=== PATIENT | male | born 1945 | race African-American/Black ===

== ENCOUNTER 2017-01-27 21:05 | Inpatient (IN) | payer MEDICAID, OTHER ==
[~2017-01-27] VITALS: Ht 177.8 cm; Wt 72.6 kg
[2017-01-27 21:05] VITALS: BP 126/81
[2017-01-27 22:20] LABS: TROPONIN I < 0.30 ng/mL (<=0.30)
[2017-01-27 22:21] LABS: APPEARANCE,URINE VERY CLOUDY; KETONES,URINE NEGATIVE (NEGATIVE); LEUKOCYTE ESTERASE ,URINE 3+ (NEGATIVE); NITRITE,URINE POSITIVE (NEGATIVE); PH,URINE 6 (4.5-8.0); PROTEIN,URINE 2+ (NEGATIVE); UROBILINOGEN,URINE 1 MG/DL (0.0-1.0)
[2017-01-27 22:22] LABS: BACTERIA,URINE MANY /HPF; RBC,URINE TNTC /HPF (0 - 0); WBC,URINE TNTC /HPF (0 - 0)
[2017-01-27 22:24] LABS: ALANINE AMINOTRANSFERASE 16 U/L (3-41); ALBUMIN/GLOBULIN RATIO 1.4 (1.0-2.7); ANION GAP 18 (5-15); ASPARTATE AMINO TRANSFERASE 29 U/L (5-40); CALCIUM 9.3 mg/dL (8.6-10.2); CARBON DIOXIDE 22 mEQ/L (20-30); CHLORIDE 103 mEQ/L (98-107); CREATININE 1.4 mg/dL (0.7-1.2); GLOMERULAR FILTRATION RATE > 60 mL/min (>60); HEMOLYSIS 27; POTASSIUM 3.5 mEQ/L (3.4-4.9); SODIUM 143 mEQ/L (135-145); TOTAL PROTEIN 7.2 g/dL (6.6-8.7)
[2017-01-27 22:27] LABS: BASOPHILS % (AUTO) 1.1 % (0.0-2.0); EOSINOPHILS % (AUTO) 1.2 % (0.0-3.0); LYMPHOCYTES % (AUTO) 15.8 % (20.0-45.0); MEAN CORPUSCULAR HEMOGLOBIN 30.6 PG (27.0-31.0); MEAN CORPUSCULAR HGB CONC 33.5 G/DL (32.0-36.0); MEAN CORPUSCULAR VOLUME 91 FL (80-99); MEAN PLATELET VOLUME 6.6 FL (6.5-10.1); MONOCYTES % (AUTO) 8.7 % (1.0-10.0); NEUTROPHILS % (AUTO) 73.2 % (45.0-75.0); PLATELET COUNT 256 K/UL (150-450); RED BLOOD COUNT 4.62 M/UL (4.70-6.10); RED CELL DISTRIBUTION WIDTH 12.1 % (11.6-14.8); WHITE BLOOD COUNT 6.3 K/UL (4.8-10.8)
[2017-01-27 22:31] LABS: AMMONIA 21 umol/L (16-60)
[2017-01-27] MEDS ORDERED: cefTRIAXone 1 GM in NS 55 ML IVPB ONE (22:45)
[2017-01-27 23:05] VITALS: BP 135/80
[2017-01-28] VITALS (7 sets, daily range): BP systolic 115–142; BP diastolic 74–92
[2017-01-28] MEDS ORDERED: LORazepam Inj 2mg/ml 1ml IV ONE (00:30)
--- NOTE | 2017-01-28 00:31 | Emergency Room Report ---
History of Present Illness General Chief Complaint: General Complaint Source: Medical Record Present Illness HPI This is a 71-year-old [place]er male coming from half-way. At baseline he has a history of dementia and he was sent in because he was agitated was getting nursing staff. This never happened before. Per EMS patient was agitated initially but by time he got here he was calm. Denies any symptoms. No history of fever or chills. No history of nausea vomiting. No other complaint. Allergies: Coded Allergies: No Known Allergies (Unverified , 01/27/17) Patient History Past Medical History: see triage record, old chart reviewed, dementia Past Surgical History: other Pertinent Family History: none Social History: Denies: smoking Immunizations: other Reviewed Nursing Documentation: PMH: Agreed, PSxH: Agreed Nursing Documentation-PMH Hx Cardiac Problems: Yes - HYPERLIPIDEMIA Hx Hypertension: Yes Hx Gastrointestinal Problems: Yes - GERD,BPH History Of Psychiatric Problem: Yes - MAJOR DEPRESSIVE DISORDER,DEMENTIA Hx Cerebrovascular Accident: Yes - TIA Review of Systems All Other Systems: limited - Secondary to dementia and agitation Physical Exam Vital Signs Date Time Temp Pulse Resp B/P Pulse Ox O2 Delivery O2 Flow Rate FiO2 01/27/17 20:51 98.4 109 18 126/81 95 Room Air vitals normal except for tachycardia Sp02 EP Interpretation: reviewed, normal General Appearance: well appearing, no apparent distress, alert Head: normocephalic, atraumatic Eyes: bilateral eye EOMI, bilateral eye PERRL ENT: hearing grossly normal, normal pharynx Neck: full range of motion, supple, no meningismus Respiratory: chest non-tender, lungs clear, normal breath sounds Cardiovascular #1: regular rate, rhythm, no murmur Gastrointestinal: normal bowel sounds, non tender, no mass, no organomegaly, no bruit, non-distended Musculoskeletal: back normal, normal range of motion Neurologic: alert Psychiatric: mood/affect normal Skin: warm/dry Medical Decision Making Diagnostic Impression: Primary Impression: UTI (urinary tract infection) Qualified Codes: N30.00 - Acute cystitis without hematuria Additional Impressions: Encephalopathy acute Proteinuria Qualified Codes: R80.9 - Proteinuria, unspecified ER Course Patient presents with agitation. He was calm here until few hours afterward. Nares agitated and combative. No focal deficit to indicate TIA or CVA. He does have infectious cause in the urine. This may be causing him to be agitated sundowning more. We'll admit to the hospital. No evidence of sepsis or pneumonia. Lab Results Impression labs unremarkable Rhythm Strip Diag. Results Rhythm Strip Time: 00:31 EP Interpretation: yes Rate: 80 Rhythm: NSR, no PVC's, no ectopy Last Vital Signs Date Time Temp Pulse Resp B/P Pulse Ox O2 Delivery O2 Flow Rate FiO2 01/27/17 21:05 98.4 90 20 126/81 98 Room Air Status: improved Disposition: ADMITTED INPATIENT Condition: Serious Referrals: Rosa M LUCAS,REFERRING (PCP) JANE KEARNS M.D. Jan 28, 2017 00:31
[2017-01-28] MEDS ORDERED: ATORVASTATIN CA40 MG ORAL (01:40)
[2017-01-28] MEDS ORDERED: LISINOPRIL10 MG ORAL (01:40)
[2017-01-28] MEDS ORDERED: MULTIVITAMINS1 EAC8 ORAL (01:40)
[2017-01-28] MEDS ORDERED: SENOKOT8.6 MG PO (01:40)
[2017-01-28] MEDS ORDERED: PAMELOR10 MG ORAL (01:40)
[2017-01-28] MEDS ORDERED: FAMOTIDINE20 MG ORAL (01:40)
[2017-01-28] MEDS ORDERED: AMLODIPINE BESY10 MG ORAL (01:40)
[2017-01-28] MEDS ORDERED: DOCUSATE SODIU100 MG ORAL (01:40)
[2017-01-28] MEDS ORDERED: TAMSULOSIN HCL0.4 MG ORAL (01:40)
[2017-01-28] MEDS ORDERED: ATIVAN0.5 MG ORAL (01:40)
[2017-01-28] MEDS ORDERED: ASPIRIN81 MG ORAL (01:40)
[2017-01-28] MEDS ORDERED: Docusate 100mg cap ORAL SCH (01:45)
[2017-01-28] MEDS ORDERED: Heparin 5000 units/ml inj SUBQ SCH (01:45)
[2017-01-28] MEDS: LORazepam 0.5mg tab ORAL PRN ×2 (03:11→23:40)
[2017-01-28 07:11] LABS: BASOPHILS % (AUTO) 0.7 % (0.0-2.0); EOSINOPHILS % (AUTO) 0.3 % (0.0-3.0); LYMPHOCYTES % (AUTO) 8.9 % (20.0-45.0); MEAN CORPUSCULAR HGB CONC 33.7 G/DL (32.0-36.0); MEAN CORPUSCULAR VOLUME 92 FL (80-99); MEAN PLATELET VOLUME 6.5 FL (6.5-10.1); MONOCYTES % (AUTO) 10.1 % (1.0-10.0); PLATELET COUNT 282 K/UL (150-450); RED BLOOD COUNT 4.54 M/UL (4.70-6.10); RED CELL DISTRIBUTION WIDTH 11.8 % (11.6-14.8); WHITE BLOOD COUNT 7.8 K/UL (4.8-10.8)
[2017-01-28 08:00] LABS: ANION GAP 20 (5-15); CALCIUM 9.1 mg/dL (8.6-10.2); CARBON DIOXIDE 21 mEQ/L (20-30); CHLORIDE 102 mEQ/L (98-107); GLOMERULAR FILTRATION RATE > 60 mL/min (>60); HEMOLYSIS 11; POTASSIUM 3.7 mEQ/L (3.4-4.9); SODIUM 143 mEQ/L (135-145)
[2017-01-28] MEDS ORDERED: Haloperidol 5mg/ml Inj IM ONE (08:00)
[2017-01-28] MEDS: Aspirin Baby 81mg ORAL SCH (08:42)
[2017-01-28] MEDS: Nortriptyline 10mg cap ORAL SCH (08:42)
[2017-01-28] MEDS: Docusate 100mg cap ORAL SCH ×2 (08:43→18:00)
[2017-01-28] MEDS: Heparin 5000 units/ml inj SUBQ SCH ×2 (08:44→21:02)
--- NOTE | 2017-01-28 15:38 | History and Physical ---
History of Present Illness General Date patient seen: Jan 28, 2017 Time patient seen: 15:31 Reason for Hospitalization: agitation Present Illness HPI 71-year-old [place] male sent in from retirement due to acute change in mentation and increased agitation compared to baseline. pt does have a history of dementia and he was sent in because he was agitated was getting nursing staff. This has never happened before. Per EMS patient was agitated initially but upon arrival in ED he became calm. Denies any symptoms. No history of fever or chills. No history of nausea vomiting. No other complaint. pt currently asleep as he was just given haldol to control agitation. Allergies: Coded Allergies: No Known Allergies (Unverified , 01/27/17) Medication History Scheduled Amlodipine Besylate* (Amlodipine Besylate*), 10 MG ORAL DAILY, (Reported) Aspirin* (Aspirin*), 81 MG ORAL DAILY, (Reported) Atorvastatin Calcium* (Atorvastatin Calcium*), 40 MG ORAL BEDTIME, (Reported) Docusate Sodium* (Docusate Sodium*), 100 MG ORAL TWICE A DAY, (Reported) Famotidine (Famotidine), 20 MG ORAL DAILY, (Reported) Lisinopril* (Lisinopril*), 10 MG ORAL DAILY, (Reported) Lorazepam* (Ativan*), 0.5 MG ORAL EVERY 6 HOURS, (Reported) Multivitamin With Minerals (Multivitamins With Minerals*), 1 TAB ORAL DAILY, ( Reported) Nortriptyline Hcl* (Pamelor*), 10 MG ORAL DAILY, (Reported) Tamsulosin Hcl (Tamsulosin Hcl*), 0.4 MG ORAL BEDTIME, (Reported) Scheduled PRN Sennosides (Senokot), 8.6 MG PO BID PRN for Constipation, (Reported) Patient History Limited by: medical condition History Provided By: Medical Record Healthcare decision maker Ruthie Blackburn Resuscitation status Full Code Advanced Directive on File Past Medical/Surgical History Past Medical/Surgical History: (1) HTN (hypertension) (2) BPH (benign prostatic hyperplasia) (3) Hyperlipidemia (4) Dementia Family History Family History: Patient reports no known family medical history. Social History Social History: (1) No significant social history Review of Systems ROS Narrative Pt asleep, unable to engage in verbal discussion or dialogue Physical Exam Physical Exam Narrative General: asleep, barely arousable to verbal stim Head: normocephalic, without obvious abnormality, atraumatic Eyes: conjunctivae/corneas clear. PERRL, EOM's intact Throat: lips, mucosa, and tongue normal. MMM Neck: supple, symmetrical, trachea midline, and no JVD Lungs: clear to auscultation bilaterally Heart: regular rate and rhythm, S1, S2 normal, no murmur, click, rub or gallop Abdomen: soft, non-tender, non-distended, bowel sounds normal; no masses or organomegaly Extremities: extremities normal, atraumatic, no cyanosis or edema Pulses: 2+ and symmetric Skin: skin color, texture, turgor normal; no rashes or lesions Neurologic: unable to assess Last 24 Hour Vital Signs Date Time Temp Pulse Resp B/P Pulse Ox O2 Delivery O2 Flow Rate FiO2 01/28/17 12:00 97.1 89 18 121/74 97 Room Air 01/28/17 08:43 118 142/92 01/28/17 08:00 97.1 118 18 142/92 96 Room Air 01/28/17 04:05 97.9 97 20 133/86 99 Room Air 01/28/17 02:25 98.4 96 27 115/87 97 Room Air 01/28/17 02:25 98.3 96 27 115/87 97 Room Air 01/28/17 01:05 98.3 62 22 134/74 100 Room Air 01/27/17 23:05 98.4 88 24 135/80 98 Room Air 01/27/17 21:05 98.4 90 20 126/81 98 Room Air 01/27/17 20:51 98.4 109 18 126/81 95 Room Air Intake and Output 01/27/17 01/28/17 19:00 07:00 # Voids 3 Laboratory Tests Test 01/27/17 21:50 01/28/17 06:20 White Blood Count 6.3 K/UL (4.8-10.8) 7.8 K/UL (4.8-10.8) Red Blood Count 4.62 M/UL (4.70-6.10) L 4.54 M/UL (4.70-6.10) L Hemoglobin 14.1 G/DL (14.2-18.0) L 14.1 G/DL (14.2-18.0) L Hematocrit 42.2 % (42.0-52.0) 41.8 % (42.0-52.0) L Mean Corpuscular Volume 91 FL (80-99) 92 FL (80-99) Mean Corpuscular Hemoglobin 30.6 PG (27.0-31.0) 31.0 PG (27.0-31.0) Mean Corpuscular Hemoglobin Concent 33.5 G/DL (32.0-36.0) 33.7 G/DL (32.0-36.0) Red Cell Distribution Width 12.1 % (11.6-14.8) 11.8 % (11.6-14.8) Platelet Count 256 K/UL (150-450) 282 K/UL (150-450) Mean Platelet Volume 6.6 FL (6.5-10.1) 6.5 FL (6.5-10.1) Neutrophils (%) (Auto) 73.2 % (45.0-75.0) 80.0 % (45.0-75.0) H Lymphocytes (%) (Auto) 15.8 % (20.0-45.0) L 8.9 % (20.0-45.0) L Monocytes (%) (Auto) 8.7 % (1.0-10.0) 10.1 % (1.0-10.0) H Eosinophils (%) (Auto) 1.2 % (0.0-3.0) 0.3 % (0.0-3.0) Basophils (%) (Auto) 1.1 % (0.0-2.0) 0.7 % (0.0-2.0) Urine Color Yellow Urine Appearance Very cloudy Urine pH 6 (4.5-8.0) Urine Specific [place] 1.025 (1.005-1.035) Urine Protein 2+ (NEGATIVE) H Urine Glucose (UA) Negative (NEGATIVE) Urine Ketones Negative (NEGATIVE) Urine Occult Blood 3+ (NEGATIVE) H Urine Nitrite Positive (NEGATIVE) H Urine Bilirubin Negative (NEGATIVE) Urine Urobilinogen 1 MG/DL (0.0-1.0) H Urine Leukocyte Esterase 3+ (NEGATIVE) H Urine RBC Tntc /HPF (0 - 0) H Urine WBC Tntc /HPF (0 - 0) H Urine Squamous Epithelial Cells None /LPF (NONE/OCC) Urine Bacteria Many /HPF (NONE) H Sodium Level 143 mEQ/L (135-145) 143 mEQ/L (135-145) Potassium Level 3.5 mEQ/L (3.4-4.9) 3.7 mEQ/L (3.4-4.9) Chloride Level 103 mEQ/L (98-107) 102 mEQ/L (98-107) Carbon Dioxide Level 22 mEQ/L (20-30) 21 mEQ/L (20-30) Anion Gap 18 (5-15) H 20 (5-15) H Blood Urea Nitrogen 28 mg/dL (7-23) H 21 mg/dL (7-23) Creatinine 1.4 mg/dL (0.7-1.2) H 1.0 mg/dL (0.7-1.2) Estimat Glomerular Filtration Rate > 60 mL/min (>60) > 60 mL/min (>60) Glucose Level 112 mg/dL (74-106) H 107 mg/dL (74-106) H Calcium Level 9.3 mg/dL (8.6-10.2) 9.1 mg/dL (8.6-10.2) Total Bilirubin 0.5 mg/dL (0.0-1.2) Aspartate Amino Transf (AST/SGOT) 29 U/L (5-40) Alanine Aminotransferase (ALT/SGPT) 16 U/L (3-41) Alkaline Phosphatase 172 U/L (40-129) H Ammonia 21 umol/L (16-60) Troponin I < 0.30 ng/mL (<=0.30) Total Protein 7.2 g/dL (6.6-8.7) Albumin 4.2 g/dL (3.5-5.2) Globulin 3.0 g/dL Albumin/Globulin Ratio 1.4 (1.0-2.7) Height (Feet): 5 Height (Inches): 10.00 Weight (Pounds): 160 Medications Current Medications Medications (Trade) Dose Ordered Sig/Iram Route PRN Reason Start Time Stop Time Status Last Admin Dose Admin Acetaminophen (Tylenol) 325 mg Q4H PRN ORAL Mild Pain (Pain Scale 1-3) 01/28/17 01:45 02/27/17 01:44 Acetaminophen (Tylenol) 650 mg Q4H PRN ORAL Moderate Pain (Pain Scale 4-6) 01/28/17 02:00 02/27/17 01:59 Amlodipine Besylate (Norvasc) 10 mg DAILY ORAL 01/28/17 09:00 02/27/17 08:59 01/28/17 08:43 Aspirin (ASA) 81 mg DAILY ORAL 01/28/17 09:00 02/27/17 08:59 01/28/17 08:42 Atorvastatin Calcium (Lipitor) 40 mg BEDTIME ORAL 01/28/17 21:00 02/27/17 20:59 Cefepime HCl/ Dextrose (Maxipime/D5W) 55 ml @ 110 mls/hr EVERY 12 HOURS IVPB 01/28/17 21:00 02/04/17 20:59 UNV Dextrose (Dextrose 50%) STAT PRN IV Hypoglycemia 01/28/17 01:45 02/27/17 01:44 Docusate Sodium (Colace) 100 mg BID ORAL 01/28/17 09:00 02/27/17 08:59 01/28/17 08:43 Heparin Sodium (Porcine) 5000 units 5,000 units EVERY 12 HOURS SUBQ 01/28/17 09:00 02/27/17 08:59 01/28/17 08:44 Lorazepam (Ativan) 0.5 mg Q6H PRN ORAL For Anxiety 01/28/17 01:45 02/04/17 01:44 01/28/17 03:11 Nortriptyline HCl (Pamelor) 10 mg DAILY ORAL 01/28/17 09:00 02/27/17 08:59 01/28/17 08:42 Sennosides (Senokot) 8.6 mg DAILY PRN ORAL Constipation 01/28/17 01:45 02/27/17 01:44 Tamsulosin HCl (Flomax) 0.4 mg BEDTIME ORAL 01/28/17 21:00 02/27/17 20:59 Assessment/Plan Problem List: (1) Toxic metabolic encephalopathy Assessment & Plan: Neurology consult Treat underlying UTI, as this is most likely etiology r/o reversible metabolic etiology ICD Codes: G92 - Toxic encephalopathy SNOMED: 452101425 (2) UTI (urinary tract infection) Assessment & Plan: Start IV cefepime f/u urine cultures ICD Codes: N39.0 - Urinary tract infection, site not specified SNOMED: 96853010 Qualifiers: Qualified Codes: N30.00 - Acute cystitis without hematuria (3) HTN (hypertension) Assessment & Plan: Cont BP meds ICD Codes: I10 - Essential (primary) hypertension SNOMED: 74641343 (4) BPH (benign prostatic hyperplasia) Assessment & Plan: Cont flomax ICD Codes: N40.0 - Benign prostatic hyperplasia without lower urinary tract symptoms SNOMED: 187785515, 407724985 (5) Hyperlipidemia Assessment & Plan: Cont statin ICD Codes: E78.5 - Hyperlipidemia, unspecified SNOMED: 93704970 ROXY DUFFY Jan 28, 2017 15:38
--- NOTE | 2017-01-28 15:47 | Infectious Diseases Prog Note ---
Assessment/Plan Assessment/Plan Full consult dictated: A) 1) complicated uti, ua with tmtc wbc 2) pmh noted 3) allergies - negative P) 1) cefepime 2) check urine culture 3) d/w Dr. Mcdonald 4) thank you Subjective Allergies: Coded Allergies: No Known Allergies (Unverified , 01/27/17) Objective Vital Signs Last 24 Hour Vital Signs Date Time Temp Pulse Resp B/P Pulse Ox O2 Delivery O2 Flow Rate FiO2 01/28/17 12:00 97.1 89 18 121/74 97 Room Air 01/28/17 08:43 118 142/92 01/28/17 08:00 97.1 118 18 142/92 96 Room Air 01/28/17 04:05 97.9 97 20 133/86 99 Room Air 01/28/17 02:25 98.4 96 27 115/87 97 Room Air 01/28/17 02:25 98.3 96 27 115/87 97 Room Air 01/28/17 01:05 98.3 62 22 134/74 100 Room Air 01/27/17 23:05 98.4 88 24 135/80 98 Room Air 01/27/17 21:05 98.4 90 20 126/81 98 Room Air 01/27/17 20:51 98.4 109 18 126/81 95 Room Air Height (Feet): 5 Height (Inches): 10.00 Weight (Pounds): 160 Laboratory Tests Test 01/27/17 21:50 01/28/17 06:20 White Blood Count 6.3 K/UL (4.8-10.8) 7.8 K/UL (4.8-10.8) Red Blood Count 4.62 M/UL (4.70-6.10) L 4.54 M/UL (4.70-6.10) L Hemoglobin 14.1 G/DL (14.2-18.0) L 14.1 G/DL (14.2-18.0) L Hematocrit 42.2 % (42.0-52.0) 41.8 % (42.0-52.0) L Mean Corpuscular Volume 91 FL (80-99) 92 FL (80-99) Mean Corpuscular Hemoglobin 30.6 PG (27.0-31.0) 31.0 PG (27.0-31.0) Mean Corpuscular Hemoglobin Concent 33.5 G/DL (32.0-36.0) 33.7 G/DL (32.0-36.0) Red Cell Distribution Width 12.1 % (11.6-14.8) 11.8 % (11.6-14.8) Platelet Count 256 K/UL (150-450) 282 K/UL (150-450) Mean Platelet Volume 6.6 FL (6.5-10.1) 6.5 FL (6.5-10.1) Neutrophils (%) (Auto) 73.2 % (45.0-75.0) 80.0 % (45.0-75.0) H Lymphocytes (%) (Auto) 15.8 % (20.0-45.0) L 8.9 % (20.0-45.0) L Monocytes (%) (Auto) 8.7 % (1.0-10.0) 10.1 % (1.0-10.0) H Eosinophils (%) (Auto) 1.2 % (0.0-3.0) 0.3 % (0.0-3.0) Basophils (%) (Auto) 1.1 % (0.0-2.0) 0.7 % (0.0-2.0) Urine Color Yellow Urine Appearance Very cloudy Urine pH 6 (4.5-8.0) Urine Specific [place] 1.025 (1.005-1.035) Urine Protein 2+ (NEGATIVE) H Urine Glucose (UA) Negative (NEGATIVE) Urine Ketones Negative (NEGATIVE) Urine Occult Blood 3+ (NEGATIVE) H Urine Nitrite Positive (NEGATIVE) H Urine Bilirubin Negative (NEGATIVE) Urine Urobilinogen 1 MG/DL (0.0-1.0) H Urine Leukocyte Esterase 3+ (NEGATIVE) H Urine RBC Tntc /HPF (0 - 0) H Urine WBC Tntc /HPF (0 - 0) H Urine Squamous Epithelial Cells None /LPF (NONE/OCC) Urine Bacteria Many /HPF (NONE) H Sodium Level 143 mEQ/L (135-145) 143 mEQ/L (135-145) Potassium Level 3.5 mEQ/L (3.4-4.9) 3.7 mEQ/L (3.4-4.9) Chloride Level 103 mEQ/L (98-107) 102 mEQ/L (98-107) Carbon Dioxide Level 22 mEQ/L (20-30) 21 mEQ/L (20-30) Anion Gap 18 (5-15) H 20 (5-15) H Blood Urea Nitrogen 28 mg/dL (7-23) H 21 mg/dL (7-23) Creatinine 1.4 mg/dL (0.7-1.2) H 1.0 mg/dL (0.7-1.2) Estimat Glomerular Filtration Rate > 60 mL/min (>60) > 60 mL/min (>60) Glucose Level 112 mg/dL (74-106) H 107 mg/dL (74-106) H Calcium Level 9.3 mg/dL (8.6-10.2) 9.1 mg/dL (8.6-10.2) Total Bilirubin 0.5 mg/dL (0.0-1.2) Aspartate Amino Transf (AST/SGOT) 29 U/L (5-40) Alanine Aminotransferase (ALT/SGPT) 16 U/L (3-41) Alkaline Phosphatase 172 U/L (40-129) H Ammonia 21 umol/L (16-60) Troponin I < 0.30 ng/mL (<=0.30) Total Protein 7.2 g/dL (6.6-8.7) Albumin 4.2 g/dL (3.5-5.2) Globulin 3.0 g/dL Albumin/Globulin Ratio 1.4 (1.0-2.7) Current Medications Medications (Trade) Dose Ordered Sig/Iram Route PRN Reason Start Time Stop Time Status Last Admin Dose Admin Acetaminophen (Tylenol) 325 mg Q4H PRN ORAL Mild Pain (Pain Scale 1-3) 01/28/17 01:45 02/27/17 01:44 Acetaminophen (Tylenol) 650 mg Q4H PRN ORAL Moderate Pain (Pain Scale 4-6) 01/28/17 02:00 02/27/17 01:59 Amlodipine Besylate (Norvasc) 10 mg DAILY ORAL 01/28/17 09:00 02/27/17 08:59 01/28/17 08:43 Aspirin (ASA) 81 mg DAILY ORAL 01/28/17 09:00 02/27/17 08:59 01/28/17 08:42 Atorvastatin Calcium (Lipitor) 40 mg BEDTIME ORAL 01/28/17 21:00 02/27/17 20:59 Cefepime HCl/ Dextrose (Maxipime/D5W) 55 ml @ 110 mls/hr EVERY 12 HOURS IVPB 01/28/17 21:00 02/04/17 20:59 UNV Dextrose (Dextrose 50%) STAT PRN IV Hypoglycemia 01/28/17 01:45 02/27/17 01:44 Docusate Sodium (Colace) 100 mg BID ORAL 01/28/17 09:00 02/27/17 08:59 01/28/17 08:43 Heparin Sodium (Porcine) 5000 units 5,000 units EVERY 12 HOURS SUBQ 01/28/17 09:00 02/27/17 08:59 01/28/17 08:44 Lorazepam (Ativan) 0.5 mg Q6H PRN ORAL For Anxiety 01/28/17 01:45 02/04/17 01:44 01/28/17 03:11 Nortriptyline HCl (Pamelor) 10 mg DAILY ORAL 01/28/17 09:00 02/27/17 08:59 01/28/17 08:42 Sennosides (Senokot) 8.6 mg DAILY PRN ORAL Constipation 01/28/17 01:45 02/27/17 01:44 Tamsulosin HCl (Flomax) 0.4 mg BEDTIME ORAL 01/28/17 21:00 02/27/17 20:59 TAB SHER Jan 28, 2017 15:47
[2017-01-28] MEDS: Cefepime HCl 1 GM in D5W 55 ML IVPB SCH (17:52)
[2017-01-28] MEDS: Tamsulosin 0.4mg cap ORAL SCH (21:01)
--- NOTE | 2017-01-28 22:09 | Consultation ---
Consult Note Consult Note NEUROLOGY CONSULTATION: Full note dictated #[id number] 71 y/o, RH, [place] M with PH of HTN, DL, BPH and dementia. He was noted to be agitated at his NH yesterday. He was noted to have a UTI. He feels better now and has had no behavioral problems. ON EXAM: Problems with orientation, Recent/Remote memory, VSF, HCF, Language. Globally diminished reflexes. IMPRESSION: Underlying dementia with superimposed encephalopathy. REC: Continue present Rx. W/U for other reasons for AMS Observe. Mercedes Coelho M.D., M.S.P.H. MERCEDES COELHO Jan 28, 2017 22:09
--- NOTE | 2017-01-28 22:46 | Consultation ---
DATE OF CONSULTATION: 01/28/2017 INFECTIOUS DISEASES CONSULTATION CONSULTING PHYSICIAN: Leela Mcdaniels M.D. ATTENDING PHYSICIAN: Michael Mcdonald M.D. REASON FOR CONSULTATION: Urinary tract infection, likely complicated UTI, encephalopathy, possible sepsis. The patient's chief complaint coming in the hospital is urinary tract infection with altered mental status. HISTORY OF PRESENT ILLNESS: This is a 71-year-old male who comes into [facility] with significantly positive urinalysis likely complicated UTI with encephalopathy and altered mental status. The patient has possible sepsis. The patient is now placed on cefepime. The patient's urine culture at this time is pending. Infectious Disease consultation was requested for antibiotic management. MAR was noted. Orders were noted. Notes were reviewed. Case was discussed with the RN. REVIEW OF SYSTEMS: Constitutional: The patient has generalized weakness and fatigue. He is a poor historian with altered mental status. Head and neck: No obvious neck pain. Cardiac: No chest pain. Gastrointestinal: No nausea, vomiting, or diarrhea. Genitourinary: No Manzo. Pulmonary: No congestion or shortness of breath. Skin: No rash or itching. Extremities: No extremity pain. Neurological: No seizures. He had no significant temperature spike. He has been tachycardic and elevated respiratory rate. PAST MEDICAL HISTORY: The patient's past medical history includes the following. The patient has a past medical history of hypertension, BPH, hyperlipidemia, dementia, encephalopathy, toxic encephalopathy, and altered mental status. His hemoglobin is 14.1. ALLERGIES: No known drug allergies. FAMILY HISTORY: Noncontributory. SOCIAL HISTORY: No mention of smoking, alcohol, or drug use. MEDICATIONS: Upon reviewing the MAR, the patient is on the following medications: He is on amlodipine, aspirin, atorvastatin, docusate, famotidine, lisinopril, lorazepam, multivitamins, nortriptyline, tamsulosin, antibiotics, and cefepime. MAR was noted. PHYSICAL EXAMINATION: VITAL SIGNS: Temperature 97.1, pulse rate 89, respiratory rate 18, blood pressure 120/74, and saturation 97%. GENERAL: Lethargic, weak, altered mental status. HEAD AND NECK: No JVD. Normocephalic. Neck is supple. HEART: Regular. No gallop or murmur. ABDOMEN: Soft. Positive bowel sounds. LUNGS: Clear bilaterally. No rhonchi or rales. SKIN: No rash. MUSCULOSKELETAL: No effusions. Legs are without cellulitis. PERIPHERAL VASCULAR: No cyanosis or gangrene. LINES: Line sites is without phlebitis. GENITOURINARY: No Manzo. NEUROLOGIC: Lethargic, poorly historian, altered. LABORATORY DATA: Laboratory data, white count 7.8, hemoglobin 14.1. Creatinine is 1.0, was 1.4. LFTs were noted. The patient's urine culture is pending at this time. Urinalysis too many to count white blood cells, 3+ leukocyte esterase, and many bacteria. ASSESSMENT AND PLAN: 1. The patient has complicated urinary tract infection with encephalopathy, altered mental status, possible early sepsis. The patient has elevated heart rate and respiratory rate, possible systemic inflammatory response syndrome criteria. Continue cefepime at this time. Check urine culture. 2. The patient has altered mental status and encephalopathy. Neurological evaluation will be obtained per the notes. 3. Benign prostatic hypertrophy. 4. Hypertension. 5. Hyperlipidemia. 6. Dementia. 7. Continue treatment per Dr. Mcdonald and consultants. 8. . 9. Notes were reviewed. 10. Case was discussed with the RN. Leela Mcdaniels M.D. DR: ITALIA JOB#: [id number] CC:
[2017-01-29] VITALS: BP 130/70
--- NOTE | 2017-01-29 00:46 | Consultation ---
DATE OF CONSULTATION: 01/28/2017 NEUROLOGY CONSULTATION CONSULTING PHYSICIAN: Krunal Coelho M.D. REFERRING PHYSICIAN: Michael Mcdonald M.D. HISTORY: Mr. Sagar Narvaez is a 71-year-old, right-handed, [place] gentleman who does have a past history of hypertension, dyslipidemia, benign prostatic h ypertrophy, and dementia. He was functioning relatively well at his [facility] until 01/27/2017 when he was noted to be increasingly agitated and not his normal self. He was brought into the [facility] emergency room. He was evaluated in the emergency room and was noted to have a significant urinary tract infection. He has been started on intravenous antibiotics and fluids, and has improved since then. At this point in time, he feels well and has been demonstrating no behavioral problems. This consultation was requested to evaluate the patient for his altered mental state. PAST MEDICAL HISTORY: Significant for hypertension, dyslipidemia, and benign prostatic hypertrophy, and dementia. FAMILY HISTORY: Unavailable. As per the patient, there is no family history of neurological problems. PERSONAL HISTORY: Home: He lives in a mcc. 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 Habits: He denies use of alcohol, tobacco, or illicit drugs. PRESENT MEDICATIONS: Lipitor, Flomax, cefepime, Norvasc, aspirin, Pamelor, Colace, heparin for DVT prophylaxis, Haldol p.r.n., Tylenol, Dextrose, lorazepam p.r.n., Senokot, and Tylenol. PHYSICAL EXAMINATION: GENERAL: He is a well-developed, well-nourished, pleasant black gentleman, lying in bed, in no acute distress. VITAL SIGNS: Pulse 90 per minute, blood pressure 136/78 mmHg, respirations 18 per minute, and temperature 97.2 degrees Fahrenheit. HEAD: Normocephalic and atraumatic. EENT: Examination benign NECK: No neck rigidity was observed. NEUROLOGICAL EXAMINATION: MENTAL STATUS EXAMINATION: He was awake and alert. He was oriented to self only. He had no idea of where he was or what the date, month, or year was. He was able to recall 3/3 words immediately, but could not remember any of them in 1 minute and 3 minutes even on the second trial. He was unable to tell me who the present President was and who prior presidents were. His mathematical skills were impaired. His visuospatial function was also impaired. SPEECH: He had mild dysarthria. LANGUAGE: She had anomia for low and mid frequency words. CRANIAL NERVE EXAMINATION: II: The visual french were intact on confrontation testing. III, IV & : The external ocular movements were full and the pupils 3 mm in diameter, equal, round, regular, and reactive to light. V: He had normal facial sensations and the temporales, masseters, and pterygoids functioned normally. VII: He had normal facial expressions and no facial asymmetry. VIII: He was able to hear well bilaterally and there was no nystagmus. IX: The palate moved symmetrically on phonation. X: He had no hoarseness of voice. XI: The sternocleidomastoids and trapezii functioned normally. XII: The tongue was in the midline without any fasciculations or atrophy. MOTOR SYSTEM: The tone was normal in all 4 extremities. Examination of muscle mass revealed no focal wasting. Examination of power revealed grade 5/5 power in all muscle groups tested. SENSORY EXAMINATION: He had intact sensations to pinprick, light touch, and graphesthesia. COORDINATION: He performed well on [id number]-ry-yyav and cbif-xz-xdve testing. REFLEXES: Trace positive and bilaterally symmetrical at the biceps, triceps, brachioradialis, and the knees and 0 at both ankles. The plantar responses were flexor bilaterally. STANCE & GAIT: Were deferred. DIAGNOSTIC IMPRESSION: 1. Mr. Sagar Narvaez is a 71-year-old, right-handed, [place] gentleman who does have a past history of hypertension, dyslipidemia, benign prostatic hypertrophy, and dementia. He was noted to be significantly agitated at his [facility] yesterday and was thus brought into the emergency room at [facility]. Since he has been here, he has been feeling better and has not demonstrated any behavioral problems. 2. On neurological examination, at this time, he does have problems with orientation, recent and remote memory, visuospatial function, higher cognitive function, and language. He also has globally diminished reflexes. 3. Laboratory data revealed a mild anemia with a hemoglobin of 14.1; and chemistry panel revealing an anion gap of 20 and a minimally elevated blood sugar, elevated alkaline phosphatase, a normal ammonia; and urinalysis, which revealed 3+ leukocyte esterase, too numerous to count red blood cells and white blood cells, and many bacteria. 4. The patient's history and neurological examination associated with his laboratory data are most compatible with an underlying dementia with superimposed toxic encephalopathy related to his urinary tract infection. RECOMMENDATIONS: 1. Agree with management thus far. 2. Would continue to treat the patient's acute infectious process in an aggressive manner. 3. The patient should also be worked up for other treatable causes of cognitive decline with an addition to the laboratory tests already done, a B12 level, folate level, vitamin D level, RPR, glycohemoglobin Westergren sedimentation rate, and TSH. 4. The patient should be mobilized rapidly. Thank you for entrusting me with the care of Mr. Narvaez. I shall follow him with you. Krunal Coelho M.D., M.S.P.H. DR: NANI JOB#: [id number]
[2017-01-29] MEDS: Cefepime HCl 1 GM in D5W 55 ML IVPB SCH ×2 (04:21→16:47)
[2017-01-29 04:22] VITALS: BP 128/72
[2017-01-29] MEDS ORDERED: LORazepam Inj 2mg/ml 1ml IV ONE (06:00)
[2017-01-29 08:00] VITALS: BP 135/85
[2017-01-29 08:27] LABS: THYROID STIMULATING HORMONE 0.753 uIU/mL (0.300-4.500)
[2017-01-29] MEDS: Docusate 100mg cap ORAL SCH ×3 (08:42→17:17)
[2017-01-29] MEDS: Heparin 5000 units/ml inj SUBQ SCH ×3 (08:43→21:21)
[2017-01-29 08:53] LABS: HEMOGLOBIN A1C 5.3 % (< 6.0)
[2017-01-29] MEDS: Aspirin Baby 81mg ORAL SCH (10:58)
[2017-01-29] MEDS: Nortriptyline 10mg cap ORAL SCH (10:58)
[2017-01-29 12:00] VITALS: BP 136/78
[2017-01-29] MEDS ORDERED: NS 275ml ONE (15:38)
[2017-01-29] MEDS ORDERED: Tubing IV Secondary IV ONE (15:38)
[2017-01-29 16:00] VITALS: BP 113/49
--- NOTE | 2017-01-29 19:42 | General Progress Note ---
Assessment/Plan Problem List: (1) Toxic metabolic encephalopathy Assessment & Plan: Neurology consult noted Treat underlying UTI, as this is most likely etiology r/o reversible metabolic etiology ICD Codes: G92 - Toxic encephalopathy SNOMED: 860953495 (2) UTI (urinary tract infection) Assessment & Plan: Cont IV abx per ID f/u urine cultures ICD Codes: N39.0 - Urinary tract infection, site not specified SNOMED: 77088973 Qualifiers: Qualified Codes: N30.00 - Acute cystitis without hematuria (3) HTN (hypertension) Assessment & Plan: Cont BP meds ICD Codes: I10 - Essential (primary) hypertension SNOMED: 97380282 (4) BPH (benign prostatic hyperplasia) Assessment & Plan: Cont flomax ICD Codes: N40.0 - Benign prostatic hyperplasia without lower urinary tract symptoms SNOMED: 463569367, 124883614 (5) Hyperlipidemia Assessment & Plan: Cont statin ICD Codes: E78.5 - Hyperlipidemia, unspecified SNOMED: 59000587 Subjective Date patient seen: Jan 29, 2017 Time patient seen: 19:40 Allergies: Coded Allergies: No Known Allergies (Unverified , 01/27/17) Subjective More alert and verbal today, interactive, denies any symptoms at this time, sitter in room Objective Last 24 Hour Vital Signs Date Time Temp Pulse Resp B/P Pulse Ox O2 Delivery O2 Flow Rate FiO2 01/29/17 16:00 97.3 92 20 113/49 99 Room Air 01/29/17 12:00 98.6 100 20 136/78 95 Room Air 01/29/17 10:58 92 135/85 01/29/17 08:00 97.7 92 20 135/85 99 Room Air 01/29/17 04:22 97.5 94 16 128/72 98 Room Air 01/29/17 00:00 98.1 92 19 130/70 97 Room Air 01/28/17 20:03 97.2 90 18 136/78 100 Room Air Intake and Output 01/28/17 01/29/17 19:00 07:00 Intake Total 580 ml 240 ml Output Total 400 ml Balance 580 ml -160 ml Intake Oral 580 ml 240 ml Output Urine Total 400 ml # Voids 3 2 Laboratory Tests 01/29/17 07:00: Erythrocyte Sedimentation Rate 36H, Hemoglobin A1c 5.3, Vitamin B12 Level 254, Vitamin D 25-Hydroxy [Pending], 25-Hydroxy Vitamin D2 [Pending], 25-Hydroxy Vitamin D3 [Pending], Folate [Pending], Thyroid Stimulating Hormone (TSH) 0.753 , Rapid Plasma Reagin [Pending] Height (Feet): 5 Height (Inches): 10.00 Weight (Pounds): 160 Objective General: alert, cooperative, no distress, appears stated age Head: normocephalic, without obvious abnormality, atraumatic Eyes: conjunctivae/corneas clear. PERRL, EOM's intact Throat: lips, mucosa, and tongue normal. MMM Neck: supple, symmetrical, trachea midline, and no JVD Lungs: clear to auscultation bilaterally Heart: regular rate and rhythm, S1, S2 normal, no murmur, click, rub or gallop Abdomen: soft, non-tender, non-distended, bowel sounds normal; no masses or organomegaly Extremities: extremities normal, atraumatic, no cyanosis or edema Pulses: 2+ and symmetric Skin: skin color, texture, turgor normal; no rashes or lesions Neurologic: grossly normal, no focal deficits ROXY DUFFY Jan 29, 2017 19:42
[2017-01-29 20:00] VITALS: BP 139/86
--- NOTE | 2017-01-29 20:13 | Neurology Progress Note ---
Interim History Interim History Interim History Mr. Narvaez feels well. As per his nurse he became very aggressive and abusive last night. He denies any new neurologic symptoms. He continues to be cognitively impoverished. He was up in the chair earlier but is in bed now. Review of Systems Neuro Review of Systems Benign. Objective Physical Exam Last Vital Signs Date Time Temp Pulse Resp B/P Pulse Ox O2 Delivery O2 Flow Rate FiO2 01/29/17 16:00 97.3 92 20 113/49 99 Room Air Laboratory Tests Test 01/29/17 07:00 Erythrocyte Sedimentation Rate 36 MM/HR (0-20) H Hemoglobin A1c 5.3 % (< 6.0) Vitamin B12 Level 254 pg/mL (211-946) Vitamin D 25-Hydroxy Pending 25-Hydroxy Vitamin D2 Pending 25-Hydroxy Vitamin D3 Pending Folate Pending Thyroid Stimulating Hormone (TSH) 0.753 uIU/mL (0.300-4.500) Rapid Plasma Reagin Pending Neurologic Exam Objective PHYSICAL EXAMINATION: GENERAL: He is a well-developed, well-nourished, pleasant black gentleman, lying in bed, in no acute distress. HEAD: Normocephalic and atraumatic. EENT: Examination benign NECK: No neck rigidity was observed. NEUROLOGICAL EXAMINATION: MENTAL STATUS EXAMINATION: He was awake and alert. He was oriented to self only. He had no idea of where he was or what the date, month, or year was. He was able to recall 3/3 words immediately, but could not remember any of them in 1 minute and 3 minutes. He was able to remember Trump but did not remember who prior presidents were. His mathematical skills were impaired. His visuospatial function was also impaired. SPEECH: He had mild dysarthria. LANGUAGE: She had anomia for low and mid frequency words. CRANIAL NERVE EXAMINATION: II: The visual french were intact on confrontation testing. III, IV & : The external ocular movements were full and the pupils 3 mm in diameter, equal, round, regular, and reactive to light. V: He had normal facial sensations and the temporales, masseters, and pterygoids functioned normally. VII: He had normal facial expressions and no facial asymmetry. VIII: He was able to hear well bilaterally and there was no nystagmus. IX: The palate moved symmetrically on phonation. X: He had no hoarseness of voice. XI: The sternocleidomastoids and trapezii functioned normally. XII: The tongue was in the midline without any fasciculations or atrophy. MOTOR SYSTEM: The tone was normal in all 4 extremities. Examination of muscle mass revealed no focal wasting. Examination of power revealed grade 5/5 power in all muscle groups tested. SENSORY EXAMINATION: He had intact sensations to pinprick, light touch, and graphesthesia. COORDINATION: He performed well on tdyrpy-fg-tewr and gyuh-lc-rhqo testing. REFLEXES: Trace positive and bilaterally symmetrical at the biceps, triceps, brachioradialis, and the knees and 0 at both ankles. The plantar responses were flexor bilaterally. STANCE & GAIT: Were deferred. Impression/Recommendations Diagnostic Impression 1. Mr. Sagar Narvaez is a 71-year-old, right-handed, [place]alese gentleman who does have a past history of hypertension, dyslipidemia, benign prostatic hypertrophy, and dementia. He was noted to be significantly agitated at his long-term on 01/27/17 and was thus brought into the emergency room at [facility]. Following that he felt better had not demonstrated any behavioral problems. 2. Last night he again started to demonstrate behavioral problems. He however is calm and well behaved now. 3. On neurological examination, at this time, he does have problems with orientation, recent and remote memory, visuospatial function, higher cognitive function, and language. He also has globally diminished reflexes. 4. Laboratory data revealed a mild anemia with a hemoglobin of 14.1; and chemistry panel revealing an anion gap of 20 and a minimally elevated blood sugar, elevated alkaline phosphatase, a normal ammonia; and urinalysis, which revealed 3+ leukocyte esterase, too numerous to count red blood cells and white blood cells, and many bacteria. 5. Further laboratory test have revealed that he is Vitamin B 12 deficient. 6. The patient's history and neurological examination associated with his laboratory data are most compatible with an underlying dementia with superimposed toxic encephalopathy related to his urinary tract infection. Recommendations 1. Continues present management. 2. Continue to treat the patient's acute infectious process in an aggressive manner. 3. Vitamin B12 - 1000 mcg SC daily x 3 days and then monthly. 4. Agree with starting Zyprexa 7.5 mg q HS. 5. The patient should be mobilized rapidly. Mercedes Coelho M.D., M.S.P.H. MERCEDES COELHO Jan 29, 2017 20:13
--- NOTE | 2017-01-29 20:46 | Consultation ---
DATE OF CONSULTATION: 01/28/2017 HISTORY OF PRESENT ILLNESS: The patient is a 71-year-old male with a history of multiple medical problems including delirium, hypertension, benign prostatic hyperplasia, hyperlipidemia, dementia, urinary tract infection, toxic metabolic encephalopathic who has been admitted to the hospital with a chief complaint of agitation. The patient is currently on medical floor being treated for his urinary tract infection. Psychiatry was consulted. The patient became combative, agitated, hitting staff, and he has been restrained on one to one. He has received Ativan; however, the medication has been ineffective. PAST PSYCHIATRIC HISTORY: He has a history of dementia, depression. He is being treated with nortriptyline as well as lorazepam. PAST MEDICAL HISTORY: Please see history of present illness. ALLERGIES: No known drug allergies. SUBSTANCE ABUSE HISTORY: No known history of illicit drug use or alcohol. MENTAL STATUS EXAMINATION: The patient was awake however is confused, oriented only to self. He was not engaged during the evaluation. He is easily agitated and becomes aggressive. His mood is irritable. Affect is flat. Congruent with mood. Thought process, there is a paucity of thought content. Positive for delusions. Insight and judgment is impaired. ASSESSMENT: AXIS I: Delirium due to general medical condition which is urinary tract infection, dementia. AXIS II: Deferred. AXIS III: Urinary tract infection. AXIS IV: low AXIS V: 10. PLAN: 1. We will discontinue the nortriptyline, it is an strong anticholinergic affinity which make the confusion worse and the patient would not benefit from such a low-dose of nortriptyline, it will only make him more confused. 2. We will start the patient on Zyprexa 7.5 mg at bedtime which will balance the dopamine and secondary to delirium. 3. Continue one to one. 4. Continue soft restraints. 5. We will continue to monitor his symptoms and readjust the medication accordingly. 6. The patient may not need 5150 at this time. Amarilis Perez M.D. DR: Rudi JOB#: [id number] CC:
[2017-01-29] MEDS: Tamsulosin 0.4mg cap ORAL SCH (21:20)
[2017-01-29] MEDS: Vitamin B12 1000mcg/ml Inj SUBQ SCH (21:25)
[2017-01-30 00:08] VITALS: BP 131/79
[2017-01-30 04:09] VITALS: BP 122/74
[2017-01-30] MEDS: Cefepime HCl 1 GM in D5W 55 ML IVPB SCH (05:58)
[2017-01-30 07:04] LABS: BASOPHILS % (AUTO) 0.6 % (0.0-2.0); EOSINOPHILS % (AUTO) 1.9 % (0.0-3.0); LYMPHOCYTES % (AUTO) 18.5 % (20.0-45.0); MEAN CORPUSCULAR HEMOGLOBIN 31.1 PG (27.0-31.0); MEAN CORPUSCULAR HGB CONC 33.8 G/DL (32.0-36.0); MEAN CORPUSCULAR VOLUME 92 FL (80-99); MEAN PLATELET VOLUME 6.6 FL (6.5-10.1); MONOCYTES % (AUTO) 12.5 % (1.0-10.0); NEUTROPHILS % (AUTO) 66.6 % (45.0-75.0); PLATELET COUNT 283 K/UL (150-450); RED BLOOD COUNT 4.55 M/UL (4.70-6.10); RED CELL DISTRIBUTION WIDTH 11.8 % (11.6-14.8); WHITE BLOOD COUNT 5.2 K/UL (4.8-10.8)
[2017-01-30 07:26] LABS: ANION GAP 17 (5-15); CALCIUM 8.9 mg/dL (8.6-10.2); CARBON DIOXIDE 23 mEQ/L (20-30); CHLORIDE 103 mEQ/L (98-107); GLOMERULAR FILTRATION RATE > 60 mL/min (>60); HEMOLYSIS 4; POTASSIUM 3.3 mEQ/L (3.4-4.9); SODIUM 143 mEQ/L (135-145)
[2017-01-30 08:15] VITALS: BP 115/76
[2017-01-30] MEDS: Docusate 100mg cap ORAL SCH ×2 (09:17→17:24)
[2017-01-30] MEDS: Aspirin Baby 81mg ORAL SCH (09:17)
[2017-01-30] MEDS: Heparin 5000 units/ml inj SUBQ SCH ×2 (09:19→21:11)
[2017-01-30] MEDS: LORazepam 0.5mg tab ORAL PRN ×2 (09:29→22:44)
[2017-01-30] MEDS ORDERED: Haloperidol 5mg/ml Inj IM ONE (11:35)
[2017-01-30] MEDS ORDERED: LORazepam Inj 2mg/ml 1ml IV ONE (11:35)
--- NOTE | 2017-01-30 12:15 | Infectious Diseases Prog Note ---
Assessment/Plan Assessment/Plan ASSESSMENT AND PLAN: 1. enterobacter uti with possible sepsis - clinically better - change to rocephin 2. ams/encephalopathy - improved 3. Benign prostatic hypertrophy. 4. Hypertension. 5. Hyperlipidemia. 6. Dementia. 7. Continue treatment per Dr. Mcdonald and consultants. 8. mar noted, fh-nc, sh-negative 9. Notes were reviewed. 10. Case was discussed with the RN. Subjective Constitutional: Denies: fever HEENT: Denies: congestion Respiratory: Denies: shortness of breath Cardiovascular: Denies: chest pain Gastrointestinal/Abdominal: Denies: diarrhea, nausea, vomiting Genitourinary: Reports: other - no mcintyre, Denies: hematuria Neurologic: Denies: headache Psychiatric: Denies: depression Skin: Denies: rash Hematologic: Denies: bleeding Musculoskeletal: Denies: pain Allergies: Coded Allergies: No Known Allergies (Unverified , 01/27/17) Objective Vital Signs Last 24 Hour Vital Signs Date Time Temp Pulse Resp B/P Pulse Ox O2 Delivery O2 Flow Rate FiO2 01/30/17 09:17 89 115/76 01/30/17 08:15 98.0 89 21 115/76 97 Room Air 01/30/17 04:09 97.6 99 21 122/74 97 Room Air 01/30/17 00:08 97.3 96 20 131/79 98 Room Air 01/29/17 20:00 97.2 104 20 139/86 97 Room Air 01/29/17 16:00 97.3 92 20 113/49 99 Room Air Height (Feet): 5 Height (Inches): 10.00 Weight (Pounds): 160 General Appearance: no acute distress HEENT: normocephalic, atraumatic, anicteric, mucous membranes moist, PERRL, EOMI, pharynx normal, supple, no JVD Respiratory/Chest: lungs clear, normal breath sounds, no respiratory distress, no accessory muscle use Cardiovascular: normal rate, regular rhythm, no gallop/murmur, no JVD Abdomen: normal bowel sounds, soft, non tender, no organomegaly, non distended Genitourinary: other - no mcintyre Extremities: no cyanosis Skin: no rash 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, abnormal gait, oriented x 3 , responsive Lymphatic: no neck adenopathy Musculoskeletal: no effusion Objective Labs Test 01/27/17 21:50 01/28/17 06:20 01/29/17 07:00 01/30/17 04:40 White Blood Count 6.3 K/UL (4.8-10.8) 7.8 K/UL (4.8-10.8) 5.2 K/UL (4.8-10.8) Red Blood Count 4.62 M/UL (4.70-6.10) 4.54 M/UL (4.70-6.10) 4.55 M/UL (4.70-6.10) Hemoglobin 14.1 G/DL (14.2-18.0) 14.1 G/DL (14.2-18.0) 14.1 G/DL (14.2-18.0) Hematocrit 42.2 % (42.0-52.0) 41.8 % (42.0-52.0) 41.8 % (42.0-52.0) Mean Corpuscular Volume 91 FL (80-99) 92 FL (80-99) 92 FL (80-99) Mean Corpuscular Hemoglobin 30.6 PG (27.0-31.0) 31.0 PG (27.0-31.0) 31.1 PG (27.0-31.0) Mean Corpuscular Hemoglobin Concent 33.5 G/DL (32.0-36.0) 33.7 G/DL (32.0-36.0) 33.8 G/DL (32.0-36.0) Red Cell Distribution Width 12.1 % (11.6-14.8) 11.8 % (11.6-14.8) 11.8 % (11.6-14.8) Platelet Count 256 K/UL (150-450) 282 K/UL (150-450) 283 K/UL (150-450) Mean Platelet Volume 6.6 FL (6.5-10.1) 6.5 FL (6.5-10.1) 6.6 FL (6.5-10.1) Neutrophils (%) (Auto) 73.2 % (45.0-75.0) 80.0 % (45.0-75.0) 66.6 % (45.0-75.0) Lymphocytes (%) (Auto) 15.8 % (20.0-45.0) 8.9 % (20.0-45.0) 18.5 % (20.0-45.0) Monocytes (%) (Auto) 8.7 % (1.0-10.0) 10.1 % (1.0-10.0) 12.5 % (1.0-10.0) Eosinophils (%) (Auto) 1.2 % (0.0-3.0) 0.3 % (0.0-3.0) 1.9 % (0.0-3.0) Basophils (%) (Auto) 1.1 % (0.0-2.0) 0.7 % (0.0-2.0) 0.6 % (0.0-2.0) Urine Color Yellow Urine Appearance Very cloudy Urine pH 6 (4.5-8.0) Urine Specific [place] 1.025 (1.005-1.035) Urine Protein 2+ (NEGATIVE) Urine Glucose (UA) Negative (NEGATIVE) Urine Ketones Negative (NEGATIVE) Urine Occult Blood 3+ (NEGATIVE) Urine Nitrite Positive (NEGATIVE) Urine Bilirubin Negative (NEGATIVE) Urine Urobilinogen 1 MG/DL (0.0-1.0) Urine Leukocyte Esterase 3+ (NEGATIVE) Urine RBC Tntc /HPF (0 - 0) Urine WBC Tntc /HPF (0 - 0) Urine Squamous Epithelial Cells None /LPF (NONE/OCC) Urine Bacteria Many /HPF (NONE) Sodium Level 143 mEQ/L (135-145) 143 mEQ/L (135-145) 143 mEQ/L (135-145) Potassium Level 3.5 mEQ/L (3.4-4.9) 3.7 mEQ/L (3.4-4.9) 3.3 mEQ/L (3.4-4.9) Chloride Level 103 mEQ/L (98-107) 102 mEQ/L (98-107) 103 mEQ/L (98-107) Carbon Dioxide Level 22 mEQ/L (20-30) 21 mEQ/L (20-30) 23 mEQ/L (20-30) Anion Gap 18 (5-15) 20 (5-15) 17 (5-15) Blood Urea Nitrogen 28 mg/dL (7-23) 21 mg/dL (7-23) 21 mg/dL (7-23) Creatinine 1.4 mg/dL (0.7-1.2) 1.0 mg/dL (0.7-1.2) 1.0 mg/dL (0.7-1.2) Estimat Glomerular Filtration Rate > 60 mL/min (>60) > 60 mL/min (>60) > 60 mL/min (>60) Glucose Level 112 mg/dL (74-106) 107 mg/dL (74-106) 89 mg/dL (74-106) Calcium Level 9.3 mg/dL (8.6-10.2) 9.1 mg/dL (8.6-10.2) 8.9 mg/dL (8.6-10.2) Total Bilirubin 0.5 mg/dL (0.0-1.2) Aspartate Amino Transf (AST/SGOT) 29 U/L (5-40) Alanine Aminotransferase (ALT/SGPT) 16 U/L (3-41) Alkaline Phosphatase 172 U/L (40-129) Ammonia 21 umol/L (16-60) Troponin I < 0.30 ng/mL (<=0.30) Total Protein 7.2 g/dL (6.6-8.7) Albumin 4.2 g/dL (3.5-5.2) Globulin 3.0 g/dL Albumin/Globulin Ratio 1.4 (1.0-2.7) Erythrocyte Sedimentation Rate 36 MM/HR (0-20) Hemoglobin A1c 5.3 % (< 6.0) Vitamin B12 Level 254 pg/mL (211-946) Folate 15.6 ng/mL (>3.0) Thyroid Stimulating Hormone (TSH) 0.753 uIU/mL (0.300-4.500) Microbiology Date/Time Source Procedure Growth Status 01/28/17 02:10 Nasal Nares MRSA Culture - Final NO METHICILLIN RESISTANT STAPH AUREUS... Complete 01/28/17 17:27 Urine,Clean Catch Urine Culture - Preliminary Gram Negative Bacillus 1 Resulted 01/27/17 21:50 Urine,Clean Catch Urine Culture - Final Enterobacter Cloacae Complex Complete 01/28/17 02:10 Rectum VRE Culture - Final NO VANCOMYCIN RESISTANT ENTEROCOCCUS ... Complete 01/27/17 22:00 Arm Left Blood Culture - Preliminary NO GROWTH AFTER 48 HOURS Resulted 01/27/17 21:50 Arm Left Blood Culture - Preliminary NO GROWTH AFTER 48 HOURS Resulted Laboratory Tests Test 01/30/17 04:40 White Blood Count 5.2 K/UL (4.8-10.8) Red Blood Count 4.55 M/UL (4.70-6.10) L Hemoglobin 14.1 G/DL (14.2-18.0) L Hematocrit 41.8 % (42.0-52.0) L Mean Corpuscular Volume 92 FL (80-99) Mean Corpuscular Hemoglobin 31.1 PG (27.0-31.0) H Mean Corpuscular Hemoglobin Concent 33.8 G/DL (32.0-36.0) Red Cell Distribution Width 11.8 % (11.6-14.8) Platelet Count 283 K/UL (150-450) Mean Platelet Volume 6.6 FL (6.5-10.1) Neutrophils (%) (Auto) 66.6 % (45.0-75.0) Lymphocytes (%) (Auto) 18.5 % (20.0-45.0) L Monocytes (%) (Auto) 12.5 % (1.0-10.0) H Eosinophils (%) (Auto) 1.9 % (0.0-3.0) Basophils (%) (Auto) 0.6 % (0.0-2.0) Sodium Level 143 mEQ/L (135-145) Potassium Level 3.3 mEQ/L (3.4-4.9) L Chloride Level 103 mEQ/L (98-107) Carbon Dioxide Level 23 mEQ/L (20-30) Anion Gap 17 (5-15) H Blood Urea Nitrogen 21 mg/dL (7-23) Creatinine 1.0 mg/dL (0.7-1.2) Estimat Glomerular Filtration Rate > 60 mL/min (>60) Glucose Level 89 mg/dL (74-106) Calcium Level 8.9 mg/dL (8.6-10.2) Current Medications Medications (Trade) Dose Ordered Sig/Iram Route PRN Reason Start Time Stop Time Status Last Admin Dose Admin Acetaminophen (Tylenol) 325 mg Q4H PRN ORAL Mild Pain (Pain Scale 1-3) 01/28/17 01:45 02/27/17 01:44 Acetaminophen (Tylenol) 650 mg Q4H PRN ORAL Moderate Pain (Pain Scale 4-6) 01/28/17 02:00 02/27/17 01:59 Amlodipine Besylate (Norvasc) 10 mg DAILY ORAL 01/28/17 09:00 02/27/17 08:59 01/30/17 09:17 Aspirin (ASA) 81 mg DAILY ORAL 01/28/17 09:00 02/27/17 08:59 01/30/17 09:17 Atorvastatin Calcium (Lipitor) 40 mg BEDTIME ORAL 01/28/17 21:00 02/27/17 20:59 01/29/17 21:13 Cefepime HCl/ Dextrose (Maxipime/D5W) 55 ml @ 110 mls/hr Q12HR@0430,1630 IVPB 01/28/17 16:30 02/04/17 16:29 01/30/17 05:58 Cyanocobalamin (Vitamin B12) 1,000 mcg QHS SUBQ 01/29/17 22:00 01/31/17 21:01 01/29/17 21:25 Dextrose (Dextrose 50%) STAT PRN IV Hypoglycemia 01/28/17 01:45 02/27/17 01:44 Docusate Sodium (Colace) 100 mg BID ORAL 01/28/17 09:00 02/27/17 08:59 01/30/17 09:17 Heparin Sodium (Porcine) 5000 units 5,000 units EVERY 12 HOURS SUBQ 01/28/17 09:00 02/27/17 08:59 01/30/17 09:19 Lorazepam (Ativan) 0.5 mg Q6H PRN ORAL For Anxiety 01/28/17 01:45 02/04/17 01:44 01/30/17 09:29 Olanzapine (ZyPREXA) 7.5 mg BEDTIME ORAL 01/29/17 21:00 02/28/17 20:59 01/29/17 21:20 Sennosides (Senokot) 8.6 mg DAILY PRN ORAL Constipation 01/28/17 01:45 02/27/17 01:44 Tamsulosin HCl (Flomax) 0.4 mg BEDTIME ORAL 01/28/17 21:00 02/27/17 20:59 01/29/17 21:20 TAB SHER Jan 30, 2017 12:15
--- NOTE | 2017-01-30 14:29 | General Progress Note ---
Assessment/Plan Status: stable Assessment/Plan (1) Toxic metabolic encephalopathy Assessment & Plan: Neurology and psych consult noted Treat underlying UTI, as this is most likely etiology r/o reversible metabolic etiology Nortriptyline stopped and seroquel started ICD Codes: G92 - Toxic encephalopathy SNOMED: 178397366 (2) UTI (urinary tract infection) Assessment & Plan: Cont IV abx per ID f/u urine culture--showing Enterobacter cloacae ICD Codes: N39.0 - Urinary tract infection, site not specified SNOMED: 52076907 Qualifiers: Qualified Codes: N30.00 - Acute cystitis without hematuria (3) HTN (hypertension) Assessment & Plan: Cont BP meds ICD Codes: I10 - Essential (primary) hypertension SNOMED: 00506279 (4) BPH (benign prostatic hyperplasia) Assessment & Plan: Cont flomax ICD Codes: N40.0 - Benign prostatic hyperplasia without lower urinary tract symptoms SNOMED: 347253342, 414249185 (5) Hyperlipidemia Assessment & Plan: Cont statin ICD Codes: E78.5 - Hyperlipidemia, unspecified SNOMED: 38295798 (6) Vitamin B12 def on Vit B12 supplementation per neuro DC planning back to SNF pending ID rec's for abx plan Subjective Date patient seen: Jan 30, 2017 Time patient seen: 14:27 ROS Limited/Unobtainable: Yes HEENT: Reports: no symptoms Respiratory: Reports: no symptoms Gastrointestinal/Abdominal: Reports: no symptoms Genitourinary: Reports: no symptoms Neurologic/Psychiatric: Reports: no symptoms Endocrine: Reports: no symptoms Hematologic/Lymphatic: Reports: no symptoms Allergies: Coded Allergies: No Known Allergies (Unverified , 01/27/17) Subjective Pt awake, alert, somewhat restless Knew he was in hospital and which city Did not know year Sitter at bedside Denies pain, SOB, f/c, n/v, d/c Objective Last 24 Hour Vital Signs Date Time Temp Pulse Resp B/P Pulse Ox O2 Delivery O2 Flow Rate FiO2 01/30/17 09:17 89 115/76 01/30/17 08:15 98.0 89 21 115/76 97 Room Air 01/30/17 04:09 97.6 99 21 122/74 97 Room Air 01/30/17 00:08 97.3 96 20 131/79 98 Room Air 01/29/17 20:00 97.2 104 20 139/86 97 Room Air 01/29/17 16:00 97.3 92 20 113/49 99 Room Air Intake and Output 01/29/17 01/30/17 19:00 07:00 Intake Total 360 ml 240 ml Output Total 400 ml Balance 360 ml -160 ml Intake Oral 250 ml 240 ml IV Total 110 ml Output Urine Total 400 ml # Voids 6 4 # Bowel Movements 2 1 Laboratory Tests 01/30/17 04:40: White Blood Count 5.2, Red Blood Count 4.55L, Hemoglobin 14.1L, Hematocrit 41.8L , Mean Corpuscular Volume 92, Mean Corpuscular Hemoglobin 31.1H, Mean Corpuscular Hemoglobin Concent 33.8, Red Cell Distribution Width 11.8, Platelet Count 283, Mean Platelet Volume 6.6, Neutrophils (%) (Auto) 66.6, Lymphocytes (% ) (Auto) 18.5L, Monocytes (%) (Auto) 12.5H, Eosinophils (%) (Auto) 1.9, Basophils (%) (Auto) 0.6, Sodium Level 143, Potassium Level 3.3L, Chloride Level 103, Carbon Dioxide Level 23, Anion Gap 17H, Blood Urea Nitrogen 21, Creatinine 1.0, Estimat Glomerular Filtration Rate > 60, Glucose Level 89, Calcium Level 8.9 Height (Feet): 5 Height (Inches): 10.00 Weight (Pounds): 160 Objective General: alert, cooperative, no distress, appears stated age Head: normocephalic, without obvious abnormality, atraumatic Eyes: conjunctivae/corneas clear. PERRL, EOM's intact Throat: lips, mucosa, and tongue normal. MMM Neck: supple, symmetrical, trachea midline, and no JVD Lungs: clear to auscultation bilaterally Heart: regular rate and rhythm, S1, S2 normal, no murmur, click, rub or gallop Abdomen: soft, non-tender, non-distended, bowel sounds normal; no masses or organomegaly Extremities: extremities normal, atraumatic, no cyanosis or edema Pulses: 2+ and symmetric Skin: skin color, texture, turgor normal; no rashes or lesions Neurologic: grossly normal, no focal deficits Rom Lucio M.D. Jan 30, 2017 14:29
[2017-01-30] MEDS ORDERED: Vitamin B12 1000mcg/ml Inj IM SCH (14:45)
--- NOTE | 2017-01-30 16:06 | Neurology Progress Note ---
Interim History Interim History Interim History Mr. Narvaez feels well. As per his nurse he again became very aggressive and abusive last night. He has pulled out his IV today. He denies any new neurologic symptoms. He continues to be cognitively impoverished. Review of Systems Neuro Review of Systems Benign. Objective Physical Exam Last Vital Signs Date Time Temp Pulse Resp B/P Pulse Ox O2 Delivery O2 Flow Rate FiO2 01/30/17 09:17 89 115/76 01/30/17 08:15 98.0 21 97 Room Air Laboratory Tests Test 01/30/17 04:40 White Blood Count 5.2 K/UL (4.8-10.8) Red Blood Count 4.55 M/UL (4.70-6.10) L Hemoglobin 14.1 G/DL (14.2-18.0) L Hematocrit 41.8 % (42.0-52.0) L Mean Corpuscular Volume 92 FL (80-99) Mean Corpuscular Hemoglobin 31.1 PG (27.0-31.0) H Mean Corpuscular Hemoglobin Concent 33.8 G/DL (32.0-36.0) Red Cell Distribution Width 11.8 % (11.6-14.8) Platelet Count 283 K/UL (150-450) Mean Platelet Volume 6.6 FL (6.5-10.1) Neutrophils (%) (Auto) 66.6 % (45.0-75.0) Lymphocytes (%) (Auto) 18.5 % (20.0-45.0) L Monocytes (%) (Auto) 12.5 % (1.0-10.0) H Eosinophils (%) (Auto) 1.9 % (0.0-3.0) Basophils (%) (Auto) 0.6 % (0.0-2.0) Sodium Level 143 mEQ/L (135-145) Potassium Level 3.3 mEQ/L (3.4-4.9) L Chloride Level 103 mEQ/L (98-107) Carbon Dioxide Level 23 mEQ/L (20-30) Anion Gap 17 (5-15) H Blood Urea Nitrogen 21 mg/dL (7-23) Creatinine 1.0 mg/dL (0.7-1.2) Estimat Glomerular Filtration Rate > 60 mL/min (>60) Glucose Level 89 mg/dL (74-106) Calcium Level 8.9 mg/dL (8.6-10.2) Neurologic Exam Objective PHYSICAL EXAMINATION: GENERAL: He is a well-developed, well-nourished, pleasant black gentleman, lying in bed, in no acute distress. HEAD: Normocephalic and atraumatic. EENT: Examination benign NECK: No neck rigidity was observed. NEUROLOGICAL EXAMINATION: MENTAL STATUS EXAMINATION: He was awake and alert. He was oriented to self only. He had no idea of where he was or what the date, month, or year was. He was able to recall 3/3 words immediately, but could not remember any of them in 1 minute and 3 minutes. He was able to remember Trump but did not remember who prior presidents were. His mathematical skills were impaired. His visuospatial function was also impaired. SPEECH: He had mild dysarthria. LANGUAGE: She had anomia for low and mid frequency words. CRANIAL NERVE EXAMINATION: II: The visual french were intact on confrontation testing. III, IV & : The external ocular movements were full and the pupils 3 mm in diameter, equal, round, regular, and reactive to light. V: He had normal facial sensations and the temporales, masseters, and pterygoids functioned normally. VII: He had normal facial expressions and no facial asymmetry. VIII: He was able to hear well bilaterally and there was no nystagmus. IX: The palate moved symmetrically on phonation. X: He had no hoarseness of voice. XI: The sternocleidomastoids and trapezii functioned normally. XII: The tongue was in the midline without any fasciculations or atrophy. MOTOR SYSTEM: The tone was normal in all 4 extremities. Examination of muscle mass revealed no focal wasting. Examination of power revealed grade 5/5 power in all muscle groups tested. SENSORY EXAMINATION: He had intact sensations to pinprick, light touch, and graphesthesia. COORDINATION: He performed well on movngg-oc-kpyj and yenz-xq-oqxh testing. REFLEXES: Trace positive and bilaterally symmetrical at the biceps, triceps, brachioradialis, and the knees and 0 at both ankles. The plantar responses were flexor bilaterally. STANCE & GAIT: Were deferred. Impression/Recommendations Diagnostic Impression 1. Mr. Sagar Narvaez is a 71-year-old, right-handed, [place] gentleman who does have a past history of hypertension, dyslipidemia, benign prostatic hypertrophy, and dementia. He was noted to be significantly agitated at his m[facility] on 01/27/17 and was thus brought into the emergency room at [facility]. Following that he felt better. 2. For the last 2 nights he has been having behavioral problems. He however is calm and well behaved now. 3. On neurological examination, at this time, he does have problems with orientation, recent and remote memory, visuospatial function, higher cognitive function, and language. He also has globally diminished reflexes. 4. Laboratory data revealed a mild anemia with a hemoglobin of 14.1; and chemistry panel revealing an anion gap of 20 and a minimally elevated blood sugar, elevated alkaline phosphatase, a normal ammonia; and urinalysis, which revealed 3+ leukocyte esterase, too numerous to count red blood cells and white blood cells, and many bacteria. 5. Further laboratory test have revealed that he is Vitamin B 12 deficient. 6. The patient's history and neurological examination associated with his laboratory data are most compatible with an underlying dementia with superimposed toxic encephalopathy related to his urinary tract infection. 7. He is also demonstrating increased agitation and confusion at night which is common in demented patients in a new environment who hav an ongoing acute infectious process. Recommendations 1. Continues present management. 2. Continue to treat the patient's acute infectious process in an aggressive manner. 3. Vitamin B12 - 1000 mcg SC daily x 3 days and then monthly. 4. Treatment of PM agitation as per Dr. Perez. 5. The patient should be mobilized rapidly. Mercedes Coelho M.D., M.S.P.[facility] GOME[facility] Jan 30, 2017 16:06
--- NOTE | 2017-01-30 17:00 | Progress Note ---
DATE: 01/30/2017 SUBJECTIVE: The patient was found naked in bed. He was on one-to-one. Earlier, he became very agitated, combative, and received Haldol IM as well as Ativan IM. The patient was not able to provide any history and was responding to internal stimuli. He has still waxing and waning consciousness. MENTAL STATUS EXAMINATION: The patient is alert and oriented to self. Mood is agitated. Affect is constricted, congruent with mood. Thought process is concrete. Thought content, there is no suicidal or homicidal ideation; however, he is others. Cognition is impaired. ASSESSMENT: Delirium due to general medical condition. PLAN: 1. The patient will be continued on risperidone 2 mg at night. 2. We will continue to follow and readjust the medication. Amarilis Perez M.D. DR: Sean JOB#: [id number] CC:
[2017-01-30] MEDS: cefTRIAXone 1 GM in D5W 50 ML IVPB SCH (17:03)
[2017-01-30 20:00] VITALS: BP 140/91
[2017-01-30] MEDS: Tamsulosin 0.4mg cap ORAL SCH (21:09)
[2017-01-30] MEDS: Vitamin B12 1000mcg/ml Inj SUBQ SCH (21:10)
[2017-01-31] VITALS: BP 135/82
[2017-01-31 04:00] VITALS: BP 144/84
[2017-01-31 08:11] LABS: BASOPHILS % (AUTO) 0.6 % (0.0-2.0); EOSINOPHILS % (AUTO) 1.2 % (0.0-3.0); LYMPHOCYTES % (AUTO) 12.7 % (20.0-45.0); MEAN CORPUSCULAR HEMOGLOBIN 30.5 PG (27.0-31.0); MEAN CORPUSCULAR HGB CONC 33.1 G/DL (32.0-36.0); MEAN CORPUSCULAR VOLUME 92 FL (80-99); MEAN PLATELET VOLUME 6.4 FL (6.5-10.1); MONOCYTES % (AUTO) 10.8 % (1.0-10.0); NEUTROPHILS % (AUTO) 74.7 % (45.0-75.0); PLATELET COUNT 304 K/UL (150-450); RED BLOOD COUNT 5.06 M/UL (4.70-6.10); RED CELL DISTRIBUTION WIDTH 11.9 % (11.6-14.8); WHITE BLOOD COUNT 5.6 K/UL (4.8-10.8)
[2017-01-31 08:15] VITALS: BP 135/84
[2017-01-31 08:37] LABS: ANION GAP 17 (5-15); CALCIUM 9.5 mg/dL (8.6-10.2); CARBON DIOXIDE 24 mEQ/L (20-30); CHLORIDE 102 mEQ/L (98-107); GLOMERULAR FILTRATION RATE > 60 mL/min (>60); HEMOLYSIS 4; POTASSIUM 3.7 mEQ/L (3.4-4.9); SODIUM 143 mEQ/L (135-145)
[2017-01-31] MEDS: Aspirin Baby 81mg ORAL SCH (08:47)
[2017-01-31] MEDS: Docusate 100mg cap ORAL SCH ×2 (08:47→18:00)
[2017-01-31] MEDS: Heparin 5000 units/ml inj SUBQ SCH ×2 (08:53→21:58)
[2017-01-31 11:48] VITALS: BP 137/83
--- NOTE | 2017-01-31 12:11 | Neurology Progress Note ---
Interim History Interim History Interim History Mr. Narvaez feels well. As per his caregiver he has not been aggressive or abusive. His general behavior has improved. He denies any new neurologic symptoms. He continues to be cognitively impoverished. Review of Systems Neuro Review of Systems Benign. Objective Physical Exam Last Vital Signs Date Time Temp Pulse Resp B/P Pulse Ox O2 Delivery O2 Flow Rate FiO2 01/31/17 11:48 98.2 91 18 137/83 99 Room Air Laboratory Tests Test 01/31/17 07:00 White Blood Count 5.6 K/UL (4.8-10.8) Red Blood Count 5.06 M/UL (4.70-6.10) Hemoglobin 15.4 G/DL (14.2-18.0) Hematocrit 46.7 % (42.0-52.0) Mean Corpuscular Volume 92 FL (80-99) Mean Corpuscular Hemoglobin 30.5 PG (27.0-31.0) Mean Corpuscular Hemoglobin Concent 33.1 G/DL (32.0-36.0) Red Cell Distribution Width 11.9 % (11.6-14.8) Platelet Count 304 K/UL (150-450) Mean Platelet Volume 6.4 FL (6.5-10.1) L Neutrophils (%) (Auto) 74.7 % (45.0-75.0) Lymphocytes (%) (Auto) 12.7 % (20.0-45.0) L Monocytes (%) (Auto) 10.8 % (1.0-10.0) H Eosinophils (%) (Auto) 1.2 % (0.0-3.0) Basophils (%) (Auto) 0.6 % (0.0-2.0) Sodium Level 143 mEQ/L (135-145) Potassium Level 3.7 mEQ/L (3.4-4.9) Chloride Level 102 mEQ/L (98-107) Carbon Dioxide Level 24 mEQ/L (20-30) Anion Gap 17 (5-15) H Blood Urea Nitrogen 18 mg/dL (7-23) Creatinine 1.0 mg/dL (0.7-1.2) Estimat Glomerular Filtration Rate > 60 mL/min (>60) Glucose Level 98 mg/dL (74-106) Calcium Level 9.5 mg/dL (8.6-10.2) Magnesium Level 2.0 mg/dL (1.7-2.5) Neurologic Exam Objective PHYSICAL EXAMINATION: GENERAL: He is a well-developed, well-nourished, pleasant black gentleman, lying in bed, in no acute distress. HEAD: Normocephalic and atraumatic. EENT: Examination benign NECK: No neck rigidity was observed. NEUROLOGICAL EXAMINATION: MENTAL STATUS EXAMINATION: He was awake and alert. He was oriented to self only. He had no idea of where he was or what the date, month, or year was. He was able to recall 3/3 words immediately, but could not remember any of them in 1 minute and 3 minutes. He was able to remember Trump but did not remember who prior presidents were. His mathematical skills were impaired. His visuospatial function was also impaired. SPEECH: He had mild dysarthria. LANGUAGE: She had anomia for low and mid frequency words. CRANIAL NERVE EXAMINATION: II: The visual french were intact on confrontation testing. III, IV & : The external ocular movements were full and the pupils 3 mm in diameter, equal, round, regular, and reactive to light. V: He had normal facial sensations and the temporales, masseters, and pterygoids functioned normally. VII: He had normal facial expressions and no facial asymmetry. VIII: He was able to hear well bilaterally and there was no nystagmus. IX: The palate moved symmetrically on phonation. X: He had no hoarseness of voice. XI: The sternocleidomastoids and trapezii functioned normally. XII: The tongue was in the midline without any fasciculations or atrophy. MOTOR SYSTEM: The tone was normal in all 4 extremities. Examination of muscle mass revealed no focal wasting. Examination of power revealed grade 5/5 power in all muscle groups tested. SENSORY EXAMINATION: He had intact sensations to pinprick, light touch, and graphesthesia. COORDINATION: He performed well on dqetye-kn-ymgq and udlk-ad-wyel testing. REFLEXES: Trace positive and bilaterally symmetrical at the biceps, triceps, brachioradialis, and the knees and 0 at both ankles. The plantar responses were flexor bilaterally. STANCE & GAIT: Were deferred. Impression/Recommendations Diagnostic Impression 1. Mr. Sagar Narvaez is a 71-year-old, right-handed, [place] gentleman who does have a past history of hypertension, dyslipidemia, benign prostatic hypertrophy, and dementia. He was noted to be significantly agitated at his mcc on 01/27/17 and was thus brought into the emergency room at [facility]. Following that he felt better. 2. Following his admission he had been having behavioral problems. He however is calm and well behaved now. 3. On neurological examination, at this time, he does have problems with orientation, recent and remote memory, visuospatial function, higher cognitive function, and language. He also has globally diminished reflexes. 4. Laboratory data revealed a mild anemia with a hemoglobin of 14.1; and chemistry panel revealing an anion gap of 20 and a minimally elevated blood sugar, elevated alkaline phosphatase, a normal ammonia; and urinalysis, which revealed 3+ leukocyte esterase, too numerous to count red blood cells and white blood cells, and many bacteria. 5. Further laboratory test have revealed that he is Vitamin B 12 deficient. 6. The patient's history and neurological examination associated with his laboratory data are most compatible with an underlying dementia with superimposed toxic encephalopathy related to his urinary tract infection. 7. He is also demonstrating increased agitation and confusion at night which is common in demented patients in a new environment who have an ongoing acute infectious process. Recommendations 1. Continues present management. 2. Continue to treat the patient's acute infectious process in an aggressive manner. 3. Vitamin B12 - 1000 mcg SC daily x 3 days and then monthly. 4. Treatment of PM agitation as per Dr. Perez. 5. The patient should be mobilized rapidly. Mercedes Garcia M.D., M.S.P.[facility] Jan 31, 2017 12:11
[2017-01-31] MEDS ORDERED: OLANZAPINE5 MG ORAL (13:48)
[2017-01-31] MEDS ORDERED: CYANOCOBAL1000 MCG/M SUBQ (13:48)
[2017-01-31] MEDS ORDERED: ATIVAN0.5 MG ORAL (13:48)
[2017-01-31] MEDS ORDERED: CIPRO500 MG PO (13:48)
[2017-01-31 16:10] VITALS: BP 120/74
[2017-01-31] MEDS: cefTRIAXone 1 GM in D5W 50 ML IVPB SCH (17:00)
[2017-01-31 20:00] VITALS: BP 144/82
[2017-01-31] MEDS: Tamsulosin 0.4mg cap ORAL SCH (21:56)
[2017-01-31] MEDS: Vitamin B12 1000mcg/ml Inj SUBQ SCH (21:56)
[2017-02-01] VITALS: BP 148/92
[2017-02-01 04:00] VITALS: BP 137/85
--- NOTE | 2017-02-01 04:59 | General Progress Note ---
Assessment/Plan Status: stable Assessment/Plan (1) Toxic metabolic encephalopathy Assessment & Plan: Neurology and psych consult noted Treat underlying UTI, as this is most likely etiology r/o reversible metabolic etiology Nortriptyline stopped and seroquel started ICD Codes: G92 - Toxic encephalopathy SNOMED: 645246161 (2) UTI (urinary tract infection) Assessment & Plan: Cont IV abx per ID--can transition to cipro PO on d/c f/u urine culture--showing Enterobacter cloacae ICD Codes: N39.0 - Urinary tract infection, site not specified SNOMED: 20005736 Qualifiers: Qualified Codes: N30.00 - Acute cystitis without hematuria (3) HTN (hypertension) Assessment & Plan: Cont BP meds ICD Codes: I10 - Essential (primary) hypertension SNOMED: 20566566 (4) BPH (benign prostatic hyperplasia) Assessment & Plan: Cont flomax ICD Codes: N40.0 - Benign prostatic hyperplasia without lower urinary tract symptoms SNOMED: 164928891, 780992247 (5) Hyperlipidemia Assessment & Plan: Cont statin ICD Codes: E78.5 - Hyperlipidemia, unspecified SNOMED: 21123890 (6) Vitamin B12 def on Vit B12 supplementation per neuro (7) RPR positive D/w ID. Pt w/ low titer. Check FTA-Ab DC planning back to SNF Subjective Date patient seen: Jan 31, 2017 Time patient seen: 12:00 ROS Limited/Unobtainable: Yes Constitutional: Reports: no symptoms HEENT: Reports: no symptoms Cardiovascular: Reports: no symptoms Respiratory: Reports: no symptoms Gastrointestinal/Abdominal: Reports: no symptoms Genitourinary: Reports: no symptoms Neurologic/Psychiatric: Reports: no symptoms Endocrine: Reports: no symptoms Hematologic/Lymphatic: Reports: no symptoms Allergies: Coded Allergies: No Known Allergies (Unverified , 01/27/17) Subjective Pt awake, alert, less confused Knew he was in hospital and which city Did not know year Sitter and family at bedside Denies pain, SOB, f/c, n/v, d/c Noted to be coughing when drinking water Objective Last 24 Hour Vital Signs Date Time Temp Pulse Resp B/P Pulse Ox O2 Delivery O2 Flow Rate FiO2 02/01/17 00:00 96.6 92 18 148/92 96 Room Air 01/31/17 20:00 97.3 97 18 144/82 99 Room Air 01/31/17 16:10 97.9 93 18 120/74 97 Room Air 01/31/17 11:48 98.2 91 18 137/83 99 Room Air 01/31/17 08:48 92 135/84 01/31/17 08:15 98.7 92 20 135/84 98 Room Air Intake and Output 01/31/17 02/01/17 19:00 07:00 Intake Total 720 ml Balance 720 ml Intake Oral 720 ml # Voids 2 # Bowel Movements 1 Laboratory Tests 01/31/17 07:00: White Blood Count 5.6, Red Blood Count 5.06, Hemoglobin 15.4, Hematocrit 46.7, Mean Corpuscular Volume 92, Mean Corpuscular Hemoglobin 30.5, Mean Corpuscular Hemoglobin Concent 33.1, Red Cell Distribution Width 11.9, Platelet Count 304, Mean Platelet Volume 6.4L, Neutrophils (%) (Auto) 74.7, Lymphocytes (%) (Auto) 12.7L, Monocytes (%) (Auto) 10.8H, Eosinophils (%) (Auto) 1.2, Basophils (%) ( Auto) 0.6, Sodium Level 143, Potassium Level 3.7, Chloride Level 102, Carbon Dioxide Level 24, Anion Gap 17H, Blood Urea Nitrogen 18, Creatinine 1.0, Estimat Glomerular Filtration Rate > 60, Glucose Level 98, Calcium Level 9.5, Magnesium Level 2.0, Treponema pallidum Ab (FTA-ABS) [Pending] Height (Feet): 5 Height (Inches): 10.00 Weight (Pounds): 160 Objective General: alert, cooperative, no distress, appears stated age Head: normocephalic, without obvious abnormality, atraumatic Eyes: conjunctivae/corneas clear. PERRL, EOM's intact Throat: lips, mucosa, and tongue normal. MMM Neck: supple, symmetrical, trachea midline, and no JVD Lungs: clear to auscultation bilaterally Heart: regular rate and rhythm, S1, S2 normal, no murmur, click, rub or gallop Abdomen: soft, non-tender, non-distended, bowel sounds normal; no masses or organomegaly Extremities: extremities normal, atraumatic, no cyanosis or edema Pulses: 2+ and symmetric Skin: skin color, texture, turgor normal; no rashes or lesions Neurologic: grossly normal, no focal deficits Rom Lucio M.D. Feb 01, 2017 04:59
[2017-02-01 08:12] VITALS: BP 145/88
[2017-02-01] MEDS: LORazepam 0.5mg tab ORAL PRN (09:57)
[2017-02-01] MEDS: Aspirin Baby 81mg ORAL SCH (09:57)
[2017-02-01] MEDS: Docusate 100mg cap ORAL SCH ×2 (09:58→18:49)
[2017-02-01] MEDS: Heparin 5000 units/ml inj SUBQ SCH ×2 (09:59→21:01)
[2017-02-01 10:21] LABS: VITAMIN D 25-OH TOTAL 26 ng/mL (.)
--- NOTE | 2017-02-01 11:42 | Infectious Diseases Prog Note ---
Assessment/Plan Assessment/Plan ASSESSMENT AND PLAN: 1. enterobacter uti with possible sepsis - clinically better - rocephin - can discharge on po levofloxacin for 5 days 2. ams/encephalopathy - improved 3. Benign prostatic hypertrophy. 4. Hypertension. 5. Hyperlipidemia. 6. Dementia. 7. Continue treatment per Dr. Mcdonald and consultants. 8. mar noted, fh-nc, sh-negative 9. Notes were reviewed. 10. Case was discussed with the RN. Subjective Constitutional: Denies: fever HEENT: Denies: congestion Respiratory: Denies: shortness of breath Cardiovascular: Denies: chest pain Gastrointestinal/Abdominal: Denies: nausea Genitourinary: Reports: other - no mcintyre, Denies: dysuria Neurologic: Denies: numbness Psychiatric: Denies: depression Skin: Denies: rash Hematologic: Denies: bleeding Musculoskeletal: Denies: pain Allergies: Coded Allergies: No Known Allergies (Unverified , 01/27/17) Objective Vital Signs Last 24 Hour Vital Signs Date Time Temp Pulse Resp B/P Pulse Ox O2 Delivery O2 Flow Rate FiO2 02/01/17 09:58 88 145/88 02/01/17 08:12 98.1 88 21 145/88 100 Room Air 02/01/17 04:00 96.4 87 18 137/85 98 Room Air 02/01/17 00:00 96.6 92 18 148/92 96 Room Air 01/31/17 20:00 97.3 97 18 144/82 99 Room Air 01/31/17 16:10 97.9 93 18 120/74 97 Room Air 01/31/17 11:48 98.2 91 18 137/83 99 Room Air Height (Feet): 5 Height (Inches): 10.00 Weight (Pounds): 160 General Appearance: no acute distress HEENT: normocephalic, atraumatic, anicteric, mucous membranes moist, PERRL, EOMI, pharynx normal, supple, no JVD Respiratory/Chest: lungs clear, normal breath sounds, no respiratory distress, no accessory muscle use Cardiovascular: normal rate, regular rhythm, no gallop/murmur, no JVD Abdomen: normal bowel sounds, soft, non tender, no organomegaly, non distended Genitourinary: other - no mcintyre Extremities: no cyanosis Skin: no rash Neurologic/Psychiatric: mushroom packer II-XII grossly normal, alert, responsive Lymphatic: no neck adenopathy Musculoskeletal: no effusion Objective Labs Test 01/27/17 21:50 01/28/17 06:20 01/29/17 07:00 01/30/17 04:40 White Blood Count 6.3 K/UL (4.8-10.8) 7.8 K/UL (4.8-10.8) 5.2 K/UL (4.8-10.8) Red Blood Count 4.62 M/UL (4.70-6.10) 4.54 M/UL (4.70-6.10) 4.55 M/UL (4.70-6.10) Hemoglobin 14.1 G/DL (14.2-18.0) 14.1 G/DL (14.2-18.0) 14.1 G/DL (14.2-18.0) Hematocrit 42.2 % (42.0-52.0) 41.8 % (42.0-52.0) 41.8 % (42.0-52.0) Mean Corpuscular Volume 91 FL (80-99) 92 FL (80-99) 92 FL (80-99) Mean Corpuscular Hemoglobin 30.6 PG (27.0-31.0) 31.0 PG (27.0-31.0) 31.1 PG (27.0-31.0) Mean Corpuscular Hemoglobin Concent 33.5 G/DL (32.0-36.0) 33.7 G/DL (32.0-36.0) 33.8 G/DL (32.0-36.0) Red Cell Distribution Width 12.1 % (11.6-14.8) 11.8 % (11.6-14.8) 11.8 % (11.6-14.8) Platelet Count 256 K/UL (150-450) 282 K/UL (150-450) 283 K/UL (150-450) Mean Platelet Volume 6.6 FL (6.5-10.1) 6.5 FL (6.5-10.1) 6.6 FL (6.5-10.1) Neutrophils (%) (Auto) 73.2 % (45.0-75.0) 80.0 % (45.0-75.0) 66.6 % (45.0-75.0) Lymphocytes (%) (Auto) 15.8 % (20.0-45.0) 8.9 % (20.0-45.0) 18.5 % (20.0-45.0) Monocytes (%) (Auto) 8.7 % (1.0-10.0) 10.1 % (1.0-10.0) 12.5 % (1.0-10.0) Eosinophils (%) (Auto) 1.2 % (0.0-3.0) 0.3 % (0.0-3.0) 1.9 % (0.0-3.0) Basophils (%) (Auto) 1.1 % (0.0-2.0) 0.7 % (0.0-2.0) 0.6 % (0.0-2.0) Urine Color Yellow Urine Appearance Very cloudy Urine pH 6 (4.5-8.0) Urine Specific [place] 1.025 (1.005-1.035) Urine Protein 2+ (NEGATIVE) Urine Glucose (UA) Negative (NEGATIVE) Urine Ketones Negative (NEGATIVE) Urine Occult Blood 3+ (NEGATIVE) Urine Nitrite Positive (NEGATIVE) Urine Bilirubin Negative (NEGATIVE) Urine Urobilinogen 1 MG/DL (0.0-1.0) Urine Leukocyte Esterase 3+ (NEGATIVE) Urine RBC Tntc /HPF (0 - 0) Urine WBC Tntc /HPF (0 - 0) Urine Squamous Epithelial Cells None /LPF (NONE/OCC) Urine Bacteria Many /HPF (NONE) Sodium Level 143 mEQ/L (135-145) 143 mEQ/L (135-145) 143 mEQ/L (135-145) Potassium Level 3.5 mEQ/L (3.4-4.9) 3.7 mEQ/L (3.4-4.9) 3.3 mEQ/L (3.4-4.9) Chloride Level 103 mEQ/L (98-107) 102 mEQ/L (98-107) 103 mEQ/L (98-107) Carbon Dioxide Level 22 mEQ/L (20-30) 21 mEQ/L (20-30) 23 mEQ/L (20-30) Anion Gap 18 (5-15) 20 (5-15) 17 (5-15) Blood Urea Nitrogen 28 mg/dL (7-23) 21 mg/dL (7-23) 21 mg/dL (7-23) Creatinine 1.4 mg/dL (0.7-1.2) 1.0 mg/dL (0.7-1.2) 1.0 mg/dL (0.7-1.2) Estimat Glomerular Filtration Rate > 60 mL/min (>60) > 60 mL/min (>60) > 60 mL/min (>60) Glucose Level 112 mg/dL (74-106) 107 mg/dL (74-106) 89 mg/dL (74-106) Calcium Level 9.3 mg/dL (8.6-10.2) 9.1 mg/dL (8.6-10.2) 8.9 mg/dL (8.6-10.2) Total Bilirubin 0.5 mg/dL (0.0-1.2) Aspartate Amino Transf (AST/SGOT) 29 U/L (5-40) Alanine Aminotransferase (ALT/SGPT) 16 U/L (3-41) Alkaline Phosphatase 172 U/L (40-129) Ammonia 21 umol/L (16-60) Troponin I < 0.30 ng/mL (<=0.30) Total Protein 7.2 g/dL (6.6-8.7) Albumin 4.2 g/dL (3.5-5.2) Globulin 3.0 g/dL Albumin/Globulin Ratio 1.4 (1.0-2.7) Erythrocyte Sedimentation Rate 36 MM/HR (0-20) Hemoglobin A1c 5.3 % (< 6.0) Vitamin B12 Level 254 pg/mL (211-946) Folate 15.6 ng/mL (>3.0) Thyroid Stimulating Hormone (TSH) 0.753 uIU/mL (0.300-4.500) Microbiology Date/Time Source Procedure Growth Status 01/28/17 02:10 Nasal Nares MRSA Culture - Final NO METHICILLIN RESISTANT STAPH AUREUS... Complete 01/28/17 17:27 Urine,Clean Catch Urine Culture - Final Enterobacter Cloacae Complex Mixed Gram Positive Organism Complete 01/28/17 02:10 Rectum VRE Culture - Final NO VANCOMYCIN RESISTANT ENTEROCOCCUS ... Complete Labs Test 01/30/17 04:40 01/31/17 07:00 White Blood Count 5.2 K/UL (4.8-10.8) 5.6 K/UL (4.8-10.8) Red Blood Count 4.55 M/UL (4.70-6.10) 5.06 M/UL (4.70-6.10) Hemoglobin 14.1 G/DL (14.2-18.0) 15.4 G/DL (14.2-18.0) Hematocrit 41.8 % (42.0-52.0) 46.7 % (42.0-52.0) Mean Corpuscular Volume 92 FL (80-99) 92 FL (80-99) Mean Corpuscular Hemoglobin 31.1 PG (27.0-31.0) 30.5 PG (27.0-31.0) Mean Corpuscular Hemoglobin Concent 33.8 G/DL (32.0-36.0) 33.1 G/DL (32.0-36.0) Red Cell Distribution Width 11.8 % (11.6-14.8) 11.9 % (11.6-14.8) Platelet Count 283 K/UL (150-450) 304 K/UL (150-450) Mean Platelet Volume 6.6 FL (6.5-10.1) 6.4 FL (6.5-10.1) Neutrophils (%) (Auto) 66.6 % (45.0-75.0) 74.7 % (45.0-75.0) Lymphocytes (%) (Auto) 18.5 % (20.0-45.0) 12.7 % (20.0-45.0) Monocytes (%) (Auto) 12.5 % (1.0-10.0) 10.8 % (1.0-10.0) Eosinophils (%) (Auto) 1.9 % (0.0-3.0) 1.2 % (0.0-3.0) Basophils (%) (Auto) 0.6 % (0.0-2.0) 0.6 % (0.0-2.0) Sodium Level 143 mEQ/L (135-145) 143 mEQ/L (135-145) Potassium Level 3.3 mEQ/L (3.4-4.9) 3.7 mEQ/L (3.4-4.9) Chloride Level 103 mEQ/L (98-107) 102 mEQ/L (98-107) Carbon Dioxide Level 23 mEQ/L (20-30) 24 mEQ/L (20-30) Anion Gap 17 (5-15) 17 (5-15) Blood Urea Nitrogen 21 mg/dL (7-23) 18 mg/dL (7-23) Creatinine 1.0 mg/dL (0.7-1.2) 1.0 mg/dL (0.7-1.2) Estimat Glomerular Filtration Rate > 60 mL/min (>60) > 60 mL/min (>60) Glucose Level 89 mg/dL (74-106) 98 mg/dL (74-106) Calcium Level 8.9 mg/dL (8.6-10.2) 9.5 mg/dL (8.6-10.2) Magnesium Level 2.0 mg/dL (1.7-2.5) Current Medications Medications (Trade) Dose Ordered Sig/Iram Route PRN Reason Start Time Stop Time Status Last Admin Dose Admin Acetaminophen (Tylenol) 325 mg Q4H PRN ORAL Mild Pain (Pain Scale 1-3) 01/28/17 01:45 02/27/17 01:44 Acetaminophen (Tylenol) 650 mg Q4H PRN ORAL Moderate Pain (Pain Scale 4-6) 01/28/17 02:00 02/27/17 01:59 Amlodipine Besylate (Norvasc) 10 mg DAILY ORAL 01/28/17 09:00 02/27/17 08:59 02/01/17 09:58 Aspirin (ASA) 81 mg DAILY ORAL 01/28/17 09:00 02/27/17 08:59 02/01/17 09:57 Atorvastatin Calcium (Lipitor) 40 mg BEDTIME ORAL 01/28/17 21:00 02/27/17 20:59 01/31/17 21:56 Ceftriaxone Sodium/Dextrose (Rocephin/D5W) 50 ml @ 100 mls/hr Q24H IVPB 01/30/17 17:00 02/06/17 16:59 01/30/17 17:03 Dextrose (Dextrose 50%) STAT PRN IV Hypoglycemia 01/28/17 01:45 02/27/17 01:44 Docusate Sodium (Colace) 100 mg BID ORAL 01/28/17 09:00 02/27/17 08:59 02/01/17 09:58 Heparin Sodium (Porcine) (Heparin 5000 units/ml) 5,000 units EVERY 12 HOURS SUBQ 01/28/17 09:00 02/27/17 08:59 02/01/17 09:59 Lorazepam (Ativan) 0.5 mg Q6H PRN ORAL For Anxiety 01/28/17 01:45 02/04/17 01:44 02/01/17 09:57 Olanzapine 7.5 mg 7.5 mg BEDTIME ORAL 01/29/17 21:00 02/28/17 20:59 01/31/17 21:56 Sennosides (Senokot) 8.6 mg DAILY PRN ORAL Constipation 01/28/17 01:45 02/27/17 01:44 02/01/17 09:57 Tamsulosin HCl (Flomax) 0.4 mg BEDTIME ORAL 01/28/17 21:00 02/27/17 20:59 01/31/17 21:56 TAB SHER Feb 01, 2017 11:42
[2017-02-01 11:48] VITALS: BP 142/89
[2017-02-01 16:00] VITALS: BP 106/67
--- NOTE | 2017-02-01 16:01 | Neurology Progress Note ---
Interim History Interim History Interim History Mr. Narvaez feels well. As per his caregiver he has not been aggressive or abusive. His general behavior has improved. He denies any new neurologic symptoms. He continues to be cognitively impoverished. Review of Systems Neuro Review of Systems Benign. Objective Physical Exam Last Vital Signs Date Time Temp Pulse Resp B/P Pulse Ox O2 Delivery O2 Flow Rate FiO2 02/01/17 11:48 97.2 98 20 142/89 97 Room Air Neurologic Exam Objective PHYSICAL EXAMINATION: GENERAL: He is a well-developed, well-nourished, pleasant black gentleman, lying in bed, in no acute distress. HEAD: Normocephalic and atraumatic. EENT: Examination benign NECK: No neck rigidity was observed. NEUROLOGICAL EXAMINATION: MENTAL STATUS EXAMINATION: He was awake and alert. He was oriented to self only. He had no idea of where he was or what the date, month, or year was. He was able to recall 3/3 words immediately, but could not remember any of them in 1 minute and 3 minutes. He was able to remember Trump but did not remember who prior presidents were. His mathematical skills were impaired. His visuospatial function was also impaired. SPEECH: He had mild dysarthria. LANGUAGE: She had anomia for low and mid frequency words. CRANIAL NERVE EXAMINATION: II: The visual french were intact on confrontation testing. III, IV & : The external ocular movements were full and the pupils 3 mm in diameter, equal, round, regular, and reactive to light. V: He had normal facial sensations and the temporales, masseters, and pterygoids functioned normally. VII: He had normal facial expressions and no facial asymmetry. VIII: He was able to hear well bilaterally and there was no nystagmus. IX: The palate moved symmetrically on phonation. X: He had no hoarseness of voice. XI: The sternocleidomastoids and trapezii functioned normally. XII: The tongue was in the midline without any fasciculations or atrophy. MOTOR SYSTEM: The tone was normal in all 4 extremities. Examination of muscle mass revealed no focal wasting. Examination of power revealed grade 5/5 power in all muscle groups tested. SENSORY EXAMINATION: He had intact sensations to pinprick, light touch, and graphesthesia. COORDINATION: He performed well on [id number] and [id number]-[id number] testing. REFLEXES: Trace positive and bilaterally symmetrical at the biceps, triceps, brachioradialis, and the knees and 0 at both ankles. The plantar responses were flexor bilaterally. STANCE & GAIT: Were deferred. Impression/Recommendations Diagnostic Impression 1. Mr. Sagar Narvaez is a 71-year-old, right-handed, [place] gentleman who does have a past history of hypertension, dyslipidemia, benign prostatic hypertrophy, and dementia. He was noted to be significantly agitated at his [facility] on 01/27/17 and was thus brought into the emergency room at [facility]. Following that he felt better. 2. Following his admission he had been having behavioral problems. He however is calm and well behaved now. 3. On neurological examination, at this time, he does have problems with orientation, recent and remote memory, visuospatial function, higher cognitive function, and language. He also has globally diminished reflexes. 4. Laboratory data revealed a mild anemia with a hemoglobin of 14.1; and chemistry panel revealing an anion gap of 20 and a minimally elevated blood sugar, elevated alkaline phosphatase, a normal ammonia; and urinalysis, which revealed 3+ leukocyte esterase, too numerous to count red blood cells and white blood cells, and many bacteria. 5. Further laboratory test have revealed that he is Vitamin B 12 deficient. His RPR is positive with a 1:2 titer. 6. The patient's history and neurological examination associated with his laboratory data are most compatible with an underlying dementia with superimposed toxic encephalopathy related to his urinary tract infection. 7. He is also demonstrating increased agitation and confusion at night which is common in demented patients in a new environment who have an ongoing acute infectious process. 8. He is RPR positive in a low titer. It is unclear as to what type of syphilis he has or if it is a false positive test. Recommendations 1. Continues present management. 2. Continue to treat the patient's acute infectious process in an aggressive manner. 3. Vitamin B12 - 1000 mcg SC daily monthly. 4. Agree with obtaining FTA-ABS. 5. The patient should be mobilized rapidly. Mercedes Coelho M.D., [facility] Feb 01, 2017 16:00
[2017-02-01] MEDS: cefTRIAXone 1 GM in D5W 50 ML IVPB SCH (17:14)
[2017-02-01 20:00] VITALS: BP 135/85
[2017-02-01] MEDS: Tamsulosin 0.4mg cap ORAL SCH (21:00)
[2017-02-02] VITALS: BP 129/83
[2017-02-02 04:00] VITALS: BP 126/80
[2017-02-02 07:56] VITALS: BP 134/80
[2017-02-02] MEDS: Aspirin Baby 81mg ORAL SCH (09:05)
[2017-02-02] MEDS: Docusate 100mg cap ORAL SCH ×2 (09:06→17:07)
[2017-02-02] MEDS: Heparin 5000 units/ml inj SUBQ SCH ×2 (09:08→21:50)
--- NOTE | 2017-02-02 09:38 | General Progress Note ---
Assessment/Plan Status: stable Assessment/Plan (1) Toxic metabolic encephalopathy Assessment & Plan: Neurology and psych consult noted Treat underlying UTI, as this is most likely etiology r/o reversible metabolic etiology Nortriptyline stopped and seroquel started ICD Codes: G92 - Toxic encephalopathy SNOMED: 675283029 (2) UTI (urinary tract infection) Assessment & Plan: Cont IV abx per ID--can transition to cipro PO on d/c f/u urine culture--showing Enterobacter cloacae ICD Codes: N39.0 - Urinary tract infection, site not specified SNOMED: 61802794 Qualifiers: Qualified Codes: N30.00 - Acute cystitis without hematuria (3) HTN (hypertension) Assessment & Plan: Cont BP meds ICD Codes: I10 - Essential (primary) hypertension SNOMED: 69199283 (4) BPH (benign prostatic hyperplasia) Assessment & Plan: Cont flomax ICD Codes: N40.0 - Benign prostatic hyperplasia without lower urinary tract symptoms SNOMED: 018018084, 103855198 (5) Hyperlipidemia Assessment & Plan: Cont statin ICD Codes: E78.5 - Hyperlipidemia, unspecified SNOMED: 99519116 (6) Vitamin B12 def on Vit B12 supplementation per neuro (7) RPR positive D/w ID. Pt w/ low titer. Check FTA-Ab-->if positive, will get LP DC planning back to SNF, awaiting bed confirmation Subjective Date patient seen: Feb 01, 2017 Time patient seen: 12:00 ROS Limited/Unobtainable: Yes Allergies: Coded Allergies: No Known Allergies (Unverified , 01/27/17) Subjective Pt awake, alert, less confused Knew he was in hospital and which city Did not know year Sitter and family at bedside Denies pain, SOB, f/c, n/v, d/c Noted to be coughing when drinking water Objective Last 24 Hour Vital Signs Date Time Temp Pulse Resp B/P Pulse Ox O2 Delivery O2 Flow Rate FiO2 02/02/17 09:06 96 134/80 02/02/17 07:56 97.7 96 19 134/80 99 Room Air 02/02/17 04:00 97.7 101 19 126/80 100 Room Air 02/02/17 00:00 96.6 94 19 129/83 98 Room Air 02/01/17 20:00 97.9 87 20 135/85 99 Room Air 02/01/17 16:00 99.1 88 21 106/67 98 Room Air 02/01/17 11:48 97.2 98 20 142/89 97 Room Air 02/01/17 09:58 88 145/88 Intake and Output 02/01/17 02/02/17 19:00 07:00 Intake Total 480 ml Balance 480 ml Intake Oral 480 ml # Voids 3 2 Height (Feet): 5 Height (Inches): 10.00 Weight (Pounds): 160 Objective General: alert, cooperative, no distress, appears stated age Head: normocephalic, without obvious abnormality, atraumatic Eyes: conjunctivae/corneas clear. PERRL, EOM's intact Throat: lips, mucosa, and tongue normal. MMM Neck: supple, symmetrical, trachea midline, and no JVD Lungs: clear to auscultation bilaterally Heart: regular rate and rhythm, S1, S2 normal, no murmur, click, rub or gallop Abdomen: soft, non-tender, non-distended, bowel sounds normal; no masses or organomegaly Extremities: extremities normal, atraumatic, no cyanosis or edema Pulses: 2+ and symmetric Skin: skin color, texture, turgor normal; no rashes or lesions Neurologic: grossly normal, no focal deficits Rom Lucio M.D. Feb 02, 2017 09:38
[2017-02-02 11:26] VITALS: BP 119/70
--- NOTE | 2017-02-02 13:40 | Neurology Progress Note ---
Interim History Interim History Interim History Mr. Narvaez feels well. As per his caregiver he has not been aggressive or abusive. His general behavior has been good. He continues to be cognitively impoverished. His memory is still poor. He denies any new neurologic symptoms. Objective Physical Exam Last Vital Signs Date Time Temp Pulse Resp B/P Pulse Ox O2 Delivery O2 Flow Rate FiO2 02/02/17 11:26 97.7 99 20 119/70 97 Room Air Neurologic Exam Objective PHYSICAL EXAMINATION: GENERAL: He is a well-developed, well-nourished, pleasant black gentleman, lying in bed, in no acute distress. HEAD: Normocephalic and atraumatic. EENT: Examination benign NECK: No neck rigidity was observed. NEUROLOGICAL EXAMINATION: MENTAL STATUS EXAMINATION: He was awake and alert. He was oriented to self and Ene only. He had no idea of where he was or what the date or year was. He was able to recall 3/3 words immediately, but could not remember any of them in 1 minute and 3 minutes. He was able to remember Trump but did not remember who prior presidents were. His mathematical skills were impaired. His visuospatial function was also impaired. SPEECH: He had mild dysarthria. LANGUAGE: She had anomia for low and mid frequency words. CRANIAL NERVE EXAMINATION: II: The visual french were intact on confrontation testing. III, IV & : The external ocular movements were full and the pupils 3 mm in diameter, equal, round, regular, and reactive to light. V: He had normal facial sensations and the temporales, masseters, and pterygoids functioned normally. VII: He had normal facial expressions and no facial asymmetry. VIII: He was able to hear well bilaterally and there was no nystagmus. IX: The palate moved symmetrically on phonation. X: He had no hoarseness of voice. XI: The sternocleidomastoids and trapezii functioned normally. XII: The tongue was in the midline without any fasciculations or atrophy. MOTOR SYSTEM: The tone was normal in all 4 extremities. Examination of muscle mass revealed no focal wasting. Examination of power revealed grade 5/5 power in all muscle groups tested. SENSORY EXAMINATION: He had intact sensations to pinprick, light touch, and graphesthesia. COORDINATION: He performed well on wkhcqh-cf-pwly and amto-sd-mzng testing. REFLEXES: Trace+ and bilaterally symmetrical at the biceps, triceps, brachioradialis, and the knees and 0 at both ankles. The plantar responses were flexor bilaterally. STANCE & GAIT: Were deferred. Impression/Recommendations Diagnostic Impression 1. Mr. Sagar Narvaez is a 71-year-old, right-handed, [place] gentleman who does have a past history of hypertension, dyslipidemia, benign prostatic hypertrophy, and dementia. He was noted to be significantly agitated at his snf on 01/27/17 and was thus brought into the emergency room at [facility]. Following that he felt better. 2. Following his admission he had been having behavioral problems. He however is calm and well behaved now. 3. On neurological examination, at this time, he does have problems with orientation, recent and remote memory, visuospatial function, higher cognitive function, and language. He also has globally diminished reflexes. 4. Laboratory data revealed a mild anemia with a hemoglobin of 14.1; and chemistry panel revealing an anion gap of 20 and a minimally elevated blood sugar, elevated alkaline phosphatase, a normal ammonia; and urinalysis, which revealed 3+ leukocyte esterase, too numerous to count red blood cells and white blood cells, and many bacteria. 5. Further laboratory test have revealed that he is Vitamin B 12 deficient. His RPR is positive with a 1:2 titer. 6. The patient's history and neurological examination associated with his laboratory data are most compatible with an underlying dementia with superimposed toxic encephalopathy related to his urinary tract infection. 7. He is also demonstrating increased agitation and confusion at night which is common in demented patients in a new environment who have an ongoing acute infectious process. 8. He is RPR positive in a low titer. It is unclear as to what type of syphilis he has or if it is a false positive test. Recommendations 1. Continues present management. 2. Continue to treat the patient's acute infectious process in an aggressive manner. 3. Vitamin B12 - 1000 mcg SC daily monthly. 4. Agree with obtaining FTA-ABS. 5. The patient should be mobilized rapidly. Mercedes Coelho M.D., [facility] Feb 02, 2017 13:40
--- NOTE | 2017-02-02 14:31 | General Progress Note ---
Assessment/Plan Status: stable Assessment/Plan (1) Toxic metabolic encephalopathy Assessment & Plan: Neurology and psych consult noted Treat underlying UTI, as this is most likely etiology r/o reversible metabolic etiology Nortriptyline stopped and seroquel started ICD Codes: G92 - Toxic encephalopathy SNOMED: 117687538 (2) UTI (urinary tract infection) Assessment & Plan: Cont IV abx per ID--can transition to cipro PO on d/c f/u urine culture--showing Enterobacter cloacae ICD Codes: N39.0 - Urinary tract infection, site not specified SNOMED: 63325842 Qualifiers: Qualified Codes: N30.00 - Acute cystitis without hematuria (3) HTN (hypertension) Assessment & Plan: Cont BP meds ICD Codes: I10 - Essential (primary) hypertension SNOMED: 46750658 (4) BPH (benign prostatic hyperplasia) Assessment & Plan: Cont flomax ICD Codes: N40.0 - Benign prostatic hyperplasia without lower urinary tract symptoms SNOMED: 885327505, 968204299 (5) Hyperlipidemia Assessment & Plan: Cont statin ICD Codes: E78.5 - Hyperlipidemia, unspecified SNOMED: 59732429 (6) Vitamin B12 def on Vit B12 supplementation per neuro (7) RPR positive D/w ID. Pt w/ low titer. Check FTA-Ab-->if positive, will get LP DC planning back to SNF, awaiting bed confirmation Subjective Date patient seen: Feb 02, 2017 Time patient seen: 14:31 ROS Limited/Unobtainable: Yes Allergies: Coded Allergies: No Known Allergies (Unverified , 01/27/17) Subjective Pt awake, alert, less confused Knew he was in hospital and which city Did not know year Sitter and family at bedside Denies pain, SOB, f/c, n/v, d/c Ambulating w/ PT Objective Last 24 Hour Vital Signs Date Time Temp Pulse Resp B/P Pulse Ox O2 Delivery O2 Flow Rate FiO2 02/02/17 11:26 97.7 99 20 119/70 97 Room Air 02/02/17 09:06 96 134/80 02/02/17 07:56 97.7 96 19 134/80 99 Room Air 02/02/17 04:00 97.7 101 19 126/80 100 Room Air 02/02/17 00:00 96.6 94 19 129/83 98 Room Air 02/01/17 20:00 97.9 87 20 135/85 99 Room Air 02/01/17 16:00 99.1 88 21 106/67 98 Room Air Intake and Output 02/01/17 02/02/17 19:00 07:00 Intake Total 480 ml Balance 480 ml Intake Oral 480 ml # Voids 3 2 Height (Feet): 5 Height (Inches): 10.00 Weight (Pounds): 160 Objective General: alert, cooperative, no distress, appears stated age Head: normocephalic, without obvious abnormality, atraumatic Eyes: conjunctivae/corneas clear. PERRL, EOM's intact Throat: lips, mucosa, and tongue normal. MMM Neck: supple, symmetrical, trachea midline, and no JVD Lungs: clear to auscultation bilaterally Heart: regular rate and rhythm, S1, S2 normal, no murmur, click, rub or gallop Abdomen: soft, non-tender, non-distended, bowel sounds normal; no masses or organomegaly Extremities: extremities normal, atraumatic, no cyanosis or edema Pulses: 2+ and symmetric Skin: skin color, texture, turgor normal; no rashes or lesions Neurologic: grossly normal, no focal deficits Rom Lucio M.D. Feb 02, 2017 14:31
[2017-02-02 16:00] VITALS: BP 145/84
[2017-02-02] MEDS: cefTRIAXone 1 GM in D5W 50 ML IVPB SCH (17:04)
[2017-02-02 20:00] VITALS: BP 128/60
[2017-02-02] MEDS: Tamsulosin 0.4mg cap ORAL SCH (21:48)
[2017-02-03] VITALS: BP 114/77
[2017-02-03 04:00] VITALS: BP 135/80
[2017-02-03 08:00] VITALS: BP 136/83
[2017-02-03] MEDS: Aspirin Baby 81mg ORAL SCH (10:13)
[2017-02-03] MEDS: Docusate 100mg cap ORAL SCH ×2 (10:14→17:31)
[2017-02-03] MEDS: Heparin 5000 units/ml inj SUBQ SCH ×2 (10:15→21:03)
[2017-02-03 12:00] VITALS: BP 128/87
--- NOTE | 2017-02-03 12:25 | Infectious Diseases Prog Note ---
Assessment/Plan Assessment/Plan ASSESSMENT AND PLAN: 1. enterobacter uti with possible sepsis - clinically better - rocephin iv - can discharge on po levofloxacin for 3 days 2. ams/encephalopathy - improved,+ rpr 1:2 only, ? syphilis, await fta-abs 3. Benign prostatic hypertrophy. 4. Hypertension. 5. Hyperlipidemia. 6. Dementia. 7. Continue treatment per Dr. Mcdonald and consultants. 8. mar noted, fh-nc, sh-negative 9. Notes were reviewed. 10. Case was discussed with the RN. Subjective Constitutional: Denies: fever HEENT: Denies: congestion Respiratory: Denies: shortness of breath Cardiovascular: Denies: chest pain Gastrointestinal/Abdominal: Denies: diarrhea, nausea, vomiting Genitourinary: Reports: other - no mcintyre, Denies: dysuria, frequency, hematuria Neurologic: Denies: headache Psychiatric: Denies: depression Skin: Denies: rash Hematologic: Denies: bleeding Musculoskeletal: Denies: pain Allergies: Coded Allergies: No Known Allergies (Unverified , 01/27/17) Objective Vital Signs Last 24 Hour Vital Signs Date Time Temp Pulse Resp B/P Pulse Ox O2 Delivery O2 Flow Rate FiO2 02/03/17 10:14 91 135/80 02/03/17 08:00 97.2 94 20 136/83 99 Room Air 02/03/17 04:00 97.5 91 20 135/80 100 Room Air 02/03/17 00:00 97.5 94 20 114/77 97 Room Air 02/02/17 20:00 98.1 96 18 128/60 96 Room Air 96.0 02/02/17 16:00 97.9 102 20 145/84 96 Room Air Height (Feet): 5 Height (Inches): 10.00 Weight (Pounds): 160 General Appearance: no acute distress HEENT: normocephalic, atraumatic, anicteric, mucous membranes moist, PERRL, EOMI, pharynx normal, supple, no JVD Respiratory/Chest: lungs clear, normal breath sounds, no respiratory distress, no accessory muscle use Cardiovascular: normal rate, regular rhythm, no gallop/murmur, no JVD Abdomen: normal bowel sounds, soft, non tender, no organomegaly, non distended Extremities: no cyanosis Skin: no rash 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, alert, oriented x 3, responsive Lymphatic: no neck adenopathy Musculoskeletal: no effusion Objective Labs Test 01/27/17 21:50 01/28/17 06:20 01/29/17 07:00 01/30/17 04:40 White Blood Count 6.3 K/UL (4.8-10.8) 7.8 K/UL (4.8-10.8) 5.2 K/UL (4.8-10.8) Red Blood Count 4.62 M/UL (4.70-6.10) 4.54 M/UL (4.70-6.10) 4.55 M/UL (4.70-6.10) Hemoglobin 14.1 G/DL (14.2-18.0) 14.1 G/DL (14.2-18.0) 14.1 G/DL (14.2-18.0) Hematocrit 42.2 % (42.0-52.0) 41.8 % (42.0-52.0) 41.8 % (42.0-52.0) Mean Corpuscular Volume 91 FL (80-99) 92 FL (80-99) 92 FL (80-99) Mean Corpuscular Hemoglobin 30.6 PG (27.0-31.0) 31.0 PG (27.0-31.0) 31.1 PG (27.0-31.0) Mean Corpuscular Hemoglobin Concent 33.5 G/DL (32.0-36.0) 33.7 G/DL (32.0-36.0) 33.8 G/DL (32.0-36.0) Red Cell Distribution Width 12.1 % (11.6-14.8) 11.8 % (11.6-14.8) 11.8 % (11.6-14.8) Platelet Count 256 K/UL (150-450) 282 K/UL (150-450) 283 K/UL (150-450) Mean Platelet Volume 6.6 FL (6.5-10.1) 6.5 FL (6.5-10.1) 6.6 FL (6.5-10.1) Neutrophils (%) (Auto) 73.2 % (45.0-75.0) 80.0 % (45.0-75.0) 66.6 % (45.0-75.0) Lymphocytes (%) (Auto) 15.8 % (20.0-45.0) 8.9 % (20.0-45.0) 18.5 % (20.0-45.0) Monocytes (%) (Auto) 8.7 % (1.0-10.0) 10.1 % (1.0-10.0) 12.5 % (1.0-10.0) Eosinophils (%) (Auto) 1.2 % (0.0-3.0) 0.3 % (0.0-3.0) 1.9 % (0.0-3.0) Basophils (%) (Auto) 1.1 % (0.0-2.0) 0.7 % (0.0-2.0) 0.6 % (0.0-2.0) Urine Color Yellow Urine Appearance Very cloudy Urine pH 6 (4.5-8.0) Urine Specific Shepherd 1.025 (1.005-1.035) Urine Protein 2+ (NEGATIVE) Urine Glucose (UA) Negative (NEGATIVE) Urine Ketones Negative (NEGATIVE) Urine Occult Blood 3+ (NEGATIVE) Urine Nitrite Positive (NEGATIVE) Urine Bilirubin Negative (NEGATIVE) Urine Urobilinogen 1 MG/DL (0.0-1.0) Urine Leukocyte Esterase 3+ (NEGATIVE) Urine RBC Tntc /HPF (0 - 0) Urine WBC Tntc /HPF (0 - 0) Urine Squamous Epithelial Cells None /LPF (NONE/OCC) Urine Bacteria Many /HPF (NONE) Sodium Level 143 mEQ/L (135-145) 143 mEQ/L (135-145) 143 mEQ/L (135-145) Potassium Level 3.5 mEQ/L (3.4-4.9) 3.7 mEQ/L (3.4-4.9) 3.3 mEQ/L (3.4-4.9) Chloride Level 103 mEQ/L (98-107) 102 mEQ/L (98-107) 103 mEQ/L (98-107) Carbon Dioxide Level 22 mEQ/L (20-30) 21 mEQ/L (20-30) 23 mEQ/L (20-30) Anion Gap 18 (5-15) 20 (5-15) 17 (5-15) Blood Urea Nitrogen 28 mg/dL (7-23) 21 mg/dL (7-23) 21 mg/dL (7-23) Creatinine 1.4 mg/dL (0.7-1.2) 1.0 mg/dL (0.7-1.2) 1.0 mg/dL (0.7-1.2) Estimat Glomerular Filtration Rate > 60 mL/min (>60) > 60 mL/min (>60) > 60 mL/min (>60) Glucose Level 112 mg/dL (74-106) 107 mg/dL (74-106) 89 mg/dL (74-106) Calcium Level 9.3 mg/dL (8.6-10.2) 9.1 mg/dL (8.6-10.2) 8.9 mg/dL (8.6-10.2) Total Bilirubin 0.5 mg/dL (0.0-1.2) Aspartate Amino Transf (AST/SGOT) 29 U/L (5-40) Alanine Aminotransferase (ALT/SGPT) 16 U/L (3-41) Alkaline Phosphatase 172 U/L (40-129) Ammonia 21 umol/L (16-60) Troponin I < 0.30 ng/mL (<=0.30) Total Protein 7.2 g/dL (6.6-8.7) Albumin 4.2 g/dL (3.5-5.2) Globulin 3.0 g/dL Albumin/Globulin Ratio 1.4 (1.0-2.7) Erythrocyte Sedimentation Rate 36 MM/HR (0-20) Hemoglobin A1c 5.3 % (< 6.0) Vitamin B12 Level 254 pg/mL (211-946) Folate 15.6 ng/mL (>3.0) Thyroid Stimulating Hormone (TSH) 0.753 uIU/mL (0.300-4.500) Microbiology Date/Time Source Procedure Growth Status 01/28/17 02:10 Nasal Nares MRSA Culture - Final NO METHICILLIN RESISTANT STAPH AUREUS... Complete 01/28/17 17:27 Urine,Clean Catch Urine Culture - Final Enterobacter Cloacae Complex Mixed Gram Positive Organism Complete 01/28/17 02:10 Rectum VRE Culture - Final NO VANCOMYCIN RESISTANT ENTEROCOCCUS ... Complete wbc - 5.6 hgb - 15.4 cr - 1.0 Current Medications Medications (Trade) Dose Ordered Sig/Iram Route PRN Reason Start Time Stop Time Status Last Admin Dose Admin Acetaminophen (Tylenol) 325 mg Q4H PRN ORAL Mild Pain (Pain Scale 1-3) 01/28/17 01:45 02/27/17 01:44 Acetaminophen (Tylenol) 650 mg Q4H PRN ORAL Moderate Pain (Pain Scale 4-6) 01/28/17 02:00 02/27/17 01:59 Amlodipine Besylate (Norvasc) 10 mg DAILY ORAL 01/28/17 09:00 02/27/17 08:59 02/03/17 10:14 Aspirin (ASA) 81 mg DAILY ORAL 01/28/17 09:00 02/27/17 08:59 02/03/17 10:13 Atorvastatin Calcium (Lipitor) 40 mg BEDTIME ORAL 01/28/17 21:00 02/27/17 20:59 02/02/17 21:48 Ceftriaxone Sodium/Dextrose (Rocephin/D5W) 50 ml @ 100 mls/hr Q24H IVPB 01/30/17 17:00 02/06/17 16:59 02/02/17 17:04 Dextrose (Dextrose 50%) STAT PRN IV Hypoglycemia 01/28/17 01:45 02/27/17 01:44 Docusate Sodium (Colace) 100 mg BID ORAL 01/28/17 09:00 02/27/17 08:59 02/03/17 10:14 Heparin Sodium (Porcine) (Heparin 5000 units/ml) 5,000 units EVERY 12 HOURS SUBQ 01/28/17 09:00 02/27/17 08:59 02/03/17 10:15 Lorazepam (Ativan) 0.5 mg Q6H PRN ORAL For Anxiety 01/28/17 01:45 02/04/17 01:44 02/01/17 09:57 Olanzapine 7.5 mg 7.5 mg BEDTIME ORAL 01/29/17 21:00 02/28/17 20:59 02/02/17 21:49 Sennosides (Senokot) 8.6 mg DAILY PRN ORAL Constipation 01/28/17 01:45 02/27/17 01:44 02/01/17 09:57 Tamsulosin HCl (Flomax) 0.4 mg BEDTIME ORAL 01/28/17 21:00 02/27/17 20:59 02/02/17 21:48 TAB SHER Feb 03, 2017 12:25
--- NOTE | 2017-02-03 15:06 | Neurology Progress Note ---
Interim History Interim History Interim History Mr. Narvaez feels well. As per his caregiver he has been calm. His behavior has been good. He continues to be cognitively impoverished. His memory is still poor. He is generally weak and prefers to stay in bed all the time. He denies any new neurologic symptoms. Review of Systems Neuro Review of Systems Benign. Objective Physical Exam Last Vital Signs Date Time Temp Pulse Resp B/P Pulse Ox O2 Delivery O2 Flow Rate FiO2 02/03/17 12:00 97.3 100 20 128/87 97 Room Air 02/02/17 20:00 96.0 Neurologic Exam Objective PHYSICAL EXAMINATION: GENERAL: He is a well-developed, well-nourished, pleasant black gentleman, lying in bed, in no acute distress. HEAD: Normocephalic and atraumatic. EENT: Examination benign NECK: No neck rigidity was observed. NEUROLOGICAL EXAMINATION: MENTAL STATUS EXAMINATION: He was awake and alert. He was oriented to self only. He had no idea of where he was or what the date, month or year was. He was able to recall 3/3 words immediately, but could not remember any of them in 1 minute and 3 minutes. He was able to remember Trump but did not remember who prior presidents were. His mathematical skills were impaired. His visuospatial function was also impaired. SPEECH: He had mild dysarthria. LANGUAGE: She had anomia for low and mid frequency words. CRANIAL NERVE EXAMINATION: II: The visual french were intact on confrontation testing. III, IV & : The external ocular movements were full and the pupils 3 mm in diameter, equal, round, regular, and reactive to light. V: He had normal facial sensations and the temporales, masseters, and pterygoids functioned normally. VII: He had normal facial expressions and no facial asymmetry. VIII: He was able to hear well bilaterally and there was no nystagmus. IX: The palate moved symmetrically on phonation. X: He had no hoarseness of voice. XI: The sternocleidomastoids and trapezii functioned normally. XII: The tongue was in the midline without any fasciculations or atrophy. MOTOR SYSTEM: The tone was normal in all 4 extremities. Examination of muscle mass revealed no focal wasting. Examination of power revealed grade 5/5 power in all muscle groups tested. SENSORY EXAMINATION: He had intact sensations to pinprick, light touch, and graphesthesia. COORDINATION: He performed well on [id number]-[id number] and bcik-[id number] testing. REFLEXES: Trace+ and bilaterally symmetrical at the biceps, triceps, brachioradialis, and the knees and 0 at both ankles. The plantar responses were flexor bilaterally. STANCE & GAIT: Were deferred. Impression/Recommendations Diagnostic Impression 1. Mr. Sagar Narvaez is a 71-year-old, right-handed, [place] gentleman who does have a past history of hypertension, dyslipidemia, benign prostatic hypertrophy, and dementia. He was noted to be significantly agitated at his fpc on 01/27/17 and was thus brought into the emergency room at [facility]. Following that he felt better. 2. Following his admission he had been having behavioral problems. He however is calm and well behaved now. 3. On neurological examination, at this time, he does have problems with orientation, recent and remote memory, visuospatial function, higher cognitive function, and language. He also has globally diminished reflexes. 4. Laboratory data revealed a mild anemia with a hemoglobin of 14.1; and chemistry panel revealing an anion gap of 20 and a minimally elevated blood sugar, elevated alkaline phosphatase, a normal ammonia; and urinalysis, which revealed 3+ leukocyte esterase, too numerous to count red blood cells and white blood cells, and many bacteria. 5. Further laboratory test have revealed that he is Vitamin B 12 deficient. His RPR is positive with a 1:2 titer. 6. The patient's history and neurological examination associated with his laboratory data are most compatible with an underlying dementia with superimposed toxic encephalopathy related to his urinary tract infection. 7. He was also demonstrating increased agitation and confusion at night which is common in demented patients in a new environment who have an ongoing acute infectious process - however that has improved now. 8. He is RPR positive in a low titer. It is unclear as to what type of syphilis he has or if it is a false positive test. Recommendations 1. Continues present management. 2. Continue to treat the patient's acute infectious process in an aggressive manner. 3. Vitamin B12 - 1000 mcg SC monthly. 4. Agree with obtaining FTA-ABS. 5. The patient should be mobilized rapidly. Mercedes Coelho M.D., [facility] Feb 03, 2017 15:05
[2017-02-03 16:00] VITALS: BP 137/86
--- NOTE | 2017-02-03 17:54 | General Progress Note ---
Assessment/Plan Status: stable Assessment/Plan (1) Toxic metabolic encephalopathy Assessment & Plan: Neurology and psych consult noted Treat underlying UTI, as this is most likely etiology r/o reversible metabolic etiology Nortriptyline stopped and seroquel started ICD Codes: G92 - Toxic encephalopathy SNOMED: 815018364 (2) UTI (urinary tract infection) Assessment & Plan: Cont IV abx per ID--can transition to cipro PO on d/c f/u urine culture--showing Enterobacter cloacae ICD Codes: N39.0 - Urinary tract infection, site not specified SNOMED: 76681472 Qualifiers: Qualified Codes: N30.00 - Acute cystitis without hematuria (3) HTN (hypertension) Assessment & Plan: Cont BP meds ICD Codes: I10 - Essential (primary) hypertension SNOMED: 75773443 (4) BPH (benign prostatic hyperplasia) Assessment & Plan: Cont flomax ICD Codes: N40.0 - Benign prostatic hyperplasia without lower urinary tract symptoms SNOMED: 327514389, 529327914 (5) Hyperlipidemia Assessment & Plan: Cont statin ICD Codes: E78.5 - Hyperlipidemia, unspecified SNOMED: 25022989 (6) Vitamin B12 def on Vit B12 supplementation per neuro (7) RPR positive D/w ID. Pt w/ low titer. Check FTA-Ab-->if positive, will get LP DC planning back to SNF, awaiting bed confirmation Subjective Date patient seen: Feb 03, 2017 Time patient seen: 13:00 ROS Limited/Unobtainable: Yes Allergies: Coded Allergies: No Known Allergies (Unverified , 01/27/17) Subjective Pt awake, alert, less confused Knew he was in hospital and which city Did not know year Sitter and family at bedside Denies pain, SOB, f/c, n/v, d/c Ambulating w/ PT Objective Last 24 Hour Vital Signs Date Time Temp Pulse Resp B/P Pulse Ox O2 Delivery O2 Flow Rate FiO2 02/03/17 16:00 97.7 99 20 137/86 99 Room Air 02/03/17 12:00 97.3 100 20 128/87 97 Room Air 02/03/17 10:14 91 135/80 02/03/17 08:00 97.2 94 20 136/83 99 Room Air 02/03/17 04:00 97.5 91 20 135/80 100 Room Air 02/03/17 00:00 97.5 94 20 114/77 97 Room Air 02/02/17 20:00 98.1 96 18 128/60 96 Room Air 96.0 Intake and Output 02/02/17 02/03/17 19:00 07:00 Intake Total 450 ml 60 ml Output Total 420 ml 200 ml Balance 30 ml -140 ml Intake Oral 450 ml 60 ml Output Urine Total 420 ml 200 ml # Bowel Movements 1 Height (Feet): 5 Height (Inches): 10.00 Weight (Pounds): 160 Objective General: alert, cooperative, no distress, appears stated age Head: normocephalic, without obvious abnormality, atraumatic Eyes: conjunctivae/corneas clear. PERRL, EOM's intact Throat: lips, mucosa, and tongue normal. MMM Neck: supple, symmetrical, trachea midline, and no JVD Lungs: clear to auscultation bilaterally Heart: regular rate and rhythm, S1, S2 normal, no murmur, click, rub or gallop Abdomen: soft, non-tender, non-distended, bowel sounds normal; no masses or organomegaly Extremities: extremities normal, atraumatic, no cyanosis or edema Pulses: 2+ and symmetric Skin: skin color, texture, turgor normal; no rashes or lesions Neurologic: grossly normal, no focal deficits Rom Lucio M.D. Feb 03, 2017 17:53
[2017-02-03] MEDS: cefTRIAXone 1 GM in D5W 50 ML IVPB SCH (18:33)
[2017-02-03 20:00] VITALS: BP 123/74
[2017-02-03] MEDS: Tamsulosin 0.4mg cap ORAL SCH (21:02)
[2017-02-04] VITALS: BP 125/93
[2017-02-04 04:00] VITALS: BP 131/74
[2017-02-04 07:10] LABS: BASOPHILS % (AUTO) 0.6 % (0.0-2.0); EOSINOPHILS % (AUTO) 1.2 % (0.0-3.0); LYMPHOCYTES % (AUTO) 10.5 % (20.0-45.0); MEAN CORPUSCULAR HEMOGLOBIN 31.5 PG (27.0-31.0); MEAN CORPUSCULAR HGB CONC 34.1 G/DL (32.0-36.0); MEAN CORPUSCULAR VOLUME 92 FL (80-99); MEAN PLATELET VOLUME 6.2 FL (6.5-10.1); MONOCYTES % (AUTO) 8.4 % (1.0-10.0); NEUTROPHILS % (AUTO) 79.4 % (45.0-75.0); PLATELET COUNT 291 K/UL (150-450); RED BLOOD COUNT 4.88 M/UL (4.70-6.10); RED CELL DISTRIBUTION WIDTH 11.9 % (11.6-14.8); WHITE BLOOD COUNT 7.1 K/UL (4.8-10.8)
[2017-02-04 07:13] LABS: ANION GAP 19 (5-15); CALCIUM 9.4 mg/dL (8.6-10.2); CARBON DIOXIDE 22 mEQ/L (20-30); CHLORIDE 104 mEQ/L (98-107); GLOMERULAR FILTRATION RATE > 60 mL/min (>60); HEMOLYSIS 2; POTASSIUM 3.8 mEQ/L (3.4-4.9); SODIUM 145 mEQ/L (135-145)
[2017-02-04 08:00] VITALS: BP 131/77
[2017-02-04 09:26] VITALS: BP 131/77
[2017-02-04] MEDS: Aspirin Baby 81mg ORAL SCH (09:26)
[2017-02-04] MEDS: Docusate 100mg cap ORAL SCH (09:26)
[2017-02-04] MEDS: Heparin 5000 units/ml inj SUBQ SCH (09:30)
--- NOTE | 2017-02-04 11:06 | Neurology Progress Note ---
Interim History Interim History Interim History Mr. Narvaez feels well. As per his caregiver he was combative earlier. He is calm now. His behavior has been fairly good. He continues to be cognitively impoverished. His memory is still poor. He is generally weak and prefers to stay in bed all the time. He denies any new neurologic symptoms. Review of Systems Neuro Review of Systems Benign. Objective Physical Exam Last Vital Signs Date Time Temp Pulse Resp B/P Pulse Ox O2 Delivery O2 Flow Rate FiO2 02/04/17 09:26 87 131/77 02/04/17 08:00 98.2 18 99 Room Air 02/02/17 20:00 96.0 Laboratory Tests Test 02/04/17 05:15 White Blood Count 7.1 K/UL (4.8-10.8) Red Blood Count 4.88 M/UL (4.70-6.10) Hemoglobin 15.4 G/DL (14.2-18.0) Hematocrit 45.1 % (42.0-52.0) Mean Corpuscular Volume 92 FL (80-99) Mean Corpuscular Hemoglobin 31.5 PG (27.0-31.0) H Mean Corpuscular Hemoglobin Concent 34.1 G/DL (32.0-36.0) Red Cell Distribution Width 11.9 % (11.6-14.8) Platelet Count 291 K/UL (150-450) Mean Platelet Volume 6.2 FL (6.5-10.1) L Neutrophils (%) (Auto) 79.4 % (45.0-75.0) H Lymphocytes (%) (Auto) 10.5 % (20.0-45.0) L Monocytes (%) (Auto) 8.4 % (1.0-10.0) Eosinophils (%) (Auto) 1.2 % (0.0-3.0) Basophils (%) (Auto) 0.6 % (0.0-2.0) Sodium Level 145 mEQ/L (135-145) Potassium Level 3.8 mEQ/L (3.4-4.9) Chloride Level 104 mEQ/L (98-107) Carbon Dioxide Level 22 mEQ/L (20-30) Anion Gap 19 (5-15) H Blood Urea Nitrogen 26 mg/dL (7-23) H Creatinine 1.0 mg/dL (0.7-1.2) Estimat Glomerular Filtration Rate > 60 mL/min (>60) Glucose Level 114 mg/dL (74-106) H Calcium Level 9.4 mg/dL (8.6-10.2) Neurologic Exam Objective PHYSICAL EXAMINATION: GENERAL: He is a well-developed, well-nourished, pleasant black gentleman, lying in bed, in no acute distress. HEAD: Normocephalic and atraumatic. EENT: Examination benign NECK: No neck rigidity was observed. NEUROLOGICAL EXAMINATION: MENTAL STATUS EXAMINATION: He was awake and alert. He was oriented to self only. He had no idea of where he was or what the date, month or year was. He was able to recall 3/3 words immediately, but could not remember any of them in 1 minute and 3 minutes. He was unable to remember [place] presidents. His mathematical skills were impaired. His visuospatial function was also impaired. SPEECH: He had mild dysarthria. LANGUAGE: She had anomia for low and mid frequency words. CRANIAL NERVE EXAMINATION: II: The visual french were intact on confrontation testing. III, IV & : The external ocular movements were full and the pupils 3 mm in diameter, equal, round, regular, and reactive to light. V: He had normal facial sensations and the temporales, masseters, and pterygoids functioned normally. VII: He had normal facial expressions and no facial asymmetry. VIII: He was able to hear well bilaterally and there was no nystagmus. IX: The palate moved symmetrically on phonation. X: He had no hoarseness of voice. XI: The sternocleidomastoids and trapezii functioned normally. XII: The tongue was in the midline without any fasciculations or atrophy. MOTOR SYSTEM: The tone was normal in all 4 extremities. Examination of muscle mass revealed no focal wasting. Examination of power revealed grade 5/5 power in all muscle groups tested. SENSORY EXAMINATION: He had intact sensations to pinprick, light touch, and graphesthesia. COORDINATION: He performed well on wixhho-bu-midc and ggwi-oe-jgyb testing. REFLEXES: Trace+ and bilaterally symmetrical at the biceps, triceps, brachioradialis, and the knees and 0 at both ankles. The plantar responses were flexor bilaterally. STANCE & GAIT: Were deferred. Impression/Recommendations Diagnostic Impression 1. Mr. Sagar Narvaez is a 71-year-old, right-handed, [place] gentleman who does have a past history of hypertension, dyslipidemia, benign prostatic hypertrophy, and dementia. He was noted to be significantly agitated at his skilled nursing on 01/27/17 and was thus brought into the emergency room at [facility]. Following that he felt better. 2. Following his admission he had been having behavioral problems. He however is calm and well behaved now. 3. On neurological examination, at this time, he does have problems with orientation, recent and remote memory, visuospatial function, higher cognitive function, and language. He also has globally diminished reflexes. 4. Laboratory data revealed a mild anemia with a hemoglobin of 14.1; and chemistry panel revealing an anion gap of 20 and a minimally elevated blood sugar, elevated alkaline phosphatase, a normal ammonia; and urinalysis, which revealed 3+ leukocyte esterase, too numerous to count red blood cells and white blood cells, and many bacteria. 5. Further laboratory test have revealed that he is Vitamin B 12 deficient. His RPR is positive with a 1:2 titer. 6. The patient's history and neurological examination associated with his laboratory data are most compatible with an underlying dementia with superimposed toxic encephalopathy related to his urinary tract infection. 7. He was also demonstrating increased agitation and confusion at night which is common in demented patients in a new environment who have an ongoing acute infectious process - however that has improved now. 8. He is RPR positive in a low titer. It is unclear as to what type of syphilis he has or if it is a false positive test. Recommendations 1. Continue present management. 2. Continue to treat the patient's acute infectious process in an aggressive manner. 3. Vitamin B12 - 1000 mcg SC monthly. 4. Await results of FTA-ABS. 5. Mobilize rapidly. Mercedes Coelho M.D., M[facility] Feb 04, 2017 11:06
[2017-02-04] MEDS ORDERED: NS 275ml ONE (17:23)
--- NOTE | 2017-02-04 23:36 | Discharge Summary ---
Rom Lucio M.D. 02/04/17 2336: Discharge Summary Hospital Course Date of Admission Jan 28, 2017 at 00:30 Date of Discharge Feb 04, 2017 at 17:24 Admitting Diagnosis Urinary tract infection, altered mental status HPI Sagar Narvaez is a 71 year old male who was admitted on Jan 28, 2017 at 00: 30 for Urinary Tract Infection,Altered Mental Status Discharge Medications New Medications: Ciprofloxacin* (Cipro*) 500 Mg Tablet 500 MG PO BID, #14 TAB Cyanocobalamin (Cyanocobalamin Injection) 1,000 Mcg/1 Ml Vial 100 MCG SUBQ QHS for 7 Days, VIAL Lorazepam* (Ativan*) 0.5 Mg Tablet 0.5 MG ORAL Q6H PRN for 30 Days, TAB Olanzapine (Olanzapine) 5 Mg Tablet 7.5 MG ORAL BEDTIME for 30 Days, TAB Continued Medications: Amlodipine Besylate* (Amlodipine Besylate*) 10 Mg Tablet 10 MG ORAL DAILY, TAB Aspirin* (Aspirin*) 81 Mg Tab.chew 81 MG ORAL DAILY, TAB Atorvastatin Calcium* (Atorvastatin Calcium*) 40 Mg Tablet 40 MG ORAL BEDTIME, TAB Docusate Sodium* (Docusate Sodium*) 100 Mg Capsule 100 MG ORAL TWICE A DAY, CAP Famotidine (Famotidine) 20 Mg Tablet 20 MG ORAL DAILY, #30 TAB 0 Refills Lisinopril* (Lisinopril*) 10 Mg Tablet 10 MG ORAL DAILY, TAB Lorazepam* (Ativan*) 0.5 Mg Tablet 0.5 MG ORAL EVERY 6 HOURS, TAB Multivitamin With Minerals (Multivitamins With Minerals*) 1 Each Tablet 1 TAB ORAL DAILY, TAB Sennosides (Senokot) 8.6 Mg Tablet 8.6 MG PO BID PRN for Constipation, TAB Tamsulosin Hcl (Tamsulosin Hcl*) 0.4 Mg Cap.er.24h 0.4 MG ORAL BEDTIME, CAP Discontinued Medications: Nortriptyline Hcl* (Pamelor*) 10 Mg Capsule 10 MG ORAL DAILY, CAP 0 Refills Discharge Condition Upon Discharge: stable Discharge Disposition Patient was discharged to SNF/Subacute Facility(03) Discharge Diagnoses: Collazo (Vanchtein),Mandi GARCIA 02/13/17 1211: Discharge Summary Discharge Medications New Medications: Ciprofloxacin* (Cipro*) 500 Mg Tablet 500 MG PO BID, #14 TAB Cyanocobalamin (Cyanocobalamin Injection) 1,000 Mcg/1 Ml Vial 100 MCG SUBQ QHS for 7 Days, VIAL Lorazepam* (Ativan*) 0.5 Mg Tablet 0.5 MG ORAL Q6H PRN for 30 Days, TAB Olanzapine (Olanzapine) 5 Mg Tablet 7.5 MG ORAL BEDTIME for 30 Days, TAB Continued Medications: Amlodipine Besylate* (Amlodipine Besylate*) 10 Mg Tablet 10 MG ORAL DAILY, TAB Aspirin* (Aspirin*) 81 Mg Tab.chew 81 MG ORAL DAILY, TAB Atorvastatin Calcium* (Atorvastatin Calcium*) 40 Mg Tablet 40 MG ORAL BEDTIME, TAB Docusate Sodium* (Docusate Sodium*) 100 Mg Capsule 100 MG ORAL TWICE A DAY, CAP Famotidine (Famotidine) 20 Mg Tablet 20 MG ORAL DAILY, #30 TAB 0 Refills Lisinopril* (Lisinopril*) 10 Mg Tablet 10 MG ORAL DAILY, TAB Lorazepam* (Ativan*) 0.5 Mg Tablet 0.5 MG ORAL EVERY 6 HOURS, TAB Multivitamin With Minerals (Multivitamins With Minerals*) 1 Each Tablet 1 TAB ORAL DAILY, TAB Sennosides (Senokot) 8.6 Mg Tablet 8.6 MG PO BID PRN for Constipation, TAB Tamsulosin Hcl (Tamsulosin Hcl*) 0.4 Mg Cap.er.24h 0.4 MG ORAL BEDTIME, CAP Discontinued Medications: Nortriptyline Hcl* (Pamelor*) 10 Mg Capsule 10 MG ORAL DAILY, CAP 0 Refills Discharge Condition Upon Discharge: stable Discharge Disposition Patient was discharged to SNF Discharge Diagnoses: (1) Probable sepsis (2) Toxic metabolic encephalopathy (3) UTI (urinary tract infection), bacterial (4) Positive RPR test (5) Vitamin B 12 deficiency (6) HTN (hypertension) (7) Hyperlipidemia (8) Dementia (9) BPH (benign prostatic hyperplasia) Rom Lucio M.D. Feb 04, 2017 23:36 Mandi Collazo NP (Vanchtein) Feb 13, 2017 12:11
== END 2017-02-04 17:24 | DRG 720 ==
LOC: EDBD 21:05 → EMR 22:00 → EDBEDREQ 23:58 → 4E 01-28 00:30 → EDBEDREQ 01-28 00:50 → 4E 01-28 01:42
DX: A41.9 Sepsis, unspecified organism (principal); G92 Toxic encephalopathy; N39.0 Urinary tract infection, site not specified; F03.90 Unspecified dementia, unspecified severity, without behavioral disturbance, psychotic disturbance, mood disturbance, and anxiety; F05 Delirium due to known physiological condition; B96.89 Other specified bacterial agents as the cause of diseases classified elsewhere; E53.8 Deficiency of other specified B group vitamins; I10 Essential (primary) hypertension; N40.0 Benign prostatic hyperplasia without lower urinary tract symptoms; E78.5 Hyperlipidemia, unspecified; R45.1 Restlessness and agitation; D64.9 Anemia, unspecified
CPT/HCPCS: 36415; 80048; 80053; 81001; 82140; 82306; 82607; 82746; 82962; 83036; 83735; 84443; 84484; 85025; 85651; 86592; 86780; 87040; 87081; 87086; 87181; J8499

== ENCOUNTER 2017-12-16 14:08 | Inpatient (IN) | payer MEDICARE, OTHER ==
[~2017-12-16] VITALS: Ht 185.4 cm; Wt 81.6 kg
[~2017-12-16 14:08] MED LIST: AMLODIPINE BESY10 MG ORAL; ASPIRIN81 MG ORAL; ATIVAN0.5 MG ORAL; ATORVASTATIN CA40 MG ORAL; CIPRO500 MG PO; CYANOCOBAL1000 MCG/M SUBQ; DOCUSATE SODIU100 MG ORAL; FAMOTIDINE20 MG ORAL; LISINOPRIL10 MG ORAL; MULTIVITAMINS1 EAC8 ORAL; OLANZAPINE5 MG ORAL; PAMELOR10 MG ORAL; SENOKOT8.6 MG PO; TAMSULOSIN HCL0.4 MG ORAL
[2017-12-16] MEDS: Cefepime HCl 1 GM in NS 55 ML IV SCH (14:15)
[2017-12-16] MEDS ORDERED: Vancomycin 1.5gm/D5W 250ml 250 ML IVPB ONE (14:15)
--- NOTE | 2017-12-16 14:16 | Emergency Room Report ---
History of Present Illness General Chief Complaint: Fever Present Illness HPI Patient is a 72-year-old male who presented after increased fever and vomiting. Patient had been sent in from residential. Patient was noted to have a full CODE STATUS. The patient had nonbilious vomiting. Patient had not been having any diarrhea. The patient was noted be febrile and was brought in by EMS. History is limited by patient's mental status. The patient had baseline encephalopathy. Allergies: Coded Allergies: No Known Allergies (Unverified , 01/27/17) Patient History Past Medical History: see triage record Reviewed Nursing Documentation: PMH: Agreed; PSxH: Agreed Nursing Documentation-PMH Hx Cardiac Problems: Yes - HYPERLIPIDEMIA Hx Hypertension: Yes Hx Cancer: No Hx Gastrointestinal Problems: Yes Hx Neurological Problems: Yes Hx Cerebrovascular Accident: Yes Hx Transient Ischemic Attacks: Yes Hx Dementia: Yes Hx Syncope: Yes Review of Systems All Other Systems: limited - by mental status Physical Exam Vital Signs Date Time Temp Pulse Resp B/P (MAP) Pulse Ox O2 Delivery O2 Flow Rate FiO2 12/16/17 14:04 98.2 101 18 98/65 93 Room Air 98.2 Sp02 EP Interpretation: reviewed, normal General Appearance: normal inspection, well appearing, no apparent distress, alert Head: atraumatic ENT: normal ENT inspection, hearing grossly normal, normal voice Neck: normal inspection, full range of motion, supple, no bony tend Respiratory: normal inspection, no respiratory distress, no retraction, rhonchi Cardiovascular #1: regular rate, rhythm, no edema Gastrointestinal: normal inspection, normal bowel sounds, non tender, soft, no guarding, no hernia, other - gtube Genitourinary: no CVA tenderness Musculoskeletal: normal inspection, back normal, normal range of motion Neurologic: responsive, speech normal, motor weakness - bilateral lower extremities Psychiatric: mood/affect normal Skin: normal inspection, normal color, no rash Medical Decision Making Diagnostic Impression: Primary Impression: Toxic metabolic encephalopathy Additional Impressions: Sepsis Pneumonia ER Course Patient presented for fever. Differential diagnosis included wasn't limited to pneumonia, urinary tract infection, drug fever, allergic reaction, sepsis, cholecystitis, among others.The chest x-ray one view interpreted by me showed right lower lobe infiltrate. A CT of the abdomen and pelvis read by radiology showed bilateral pulmonary infiltrates without evidence of bowel obstruction. The patient was noted to have elevated lactic acid level which subsequently was noted to be rising. Patient was started on IV antibiotics and blood cultures are obtained. The patient was noted to be awake and verbal. Dr. Jarrod Vásquez was contacted for inpatient management due to primary physician Labs Test 12/16/17 14:15 12/16/17 16:00 12/16/17 16:27 White Blood Count 7.1 K/UL (4.8-10.8) Red Blood Count 4.20 M/UL (4.70-6.10) Hemoglobin 11.0 G/DL (14.2-18.0) Hematocrit 34.8 % (42.0-52.0) Mean Corpuscular Volume 83 FL (80-99) Mean Corpuscular Hemoglobin 26.3 PG (27.0-31.0) Mean Corpuscular Hemoglobin Concent 31.7 G/DL (32.0-36.0) Red Cell Distribution Width 15.7 % (11.6-14.8) Platelet Count 233 K/UL (150-450) Mean Platelet Volume 5.9 FL (6.5-10.1) Neutrophils (%) (Auto) 81.2 % (45.0-75.0) Lymphocytes (%) (Auto) 5.4 % (20.0-45.0) Monocytes (%) (Auto) 13.1 % (1.0-10.0) Eosinophils (%) (Auto) 0.0 % (0.0-3.0) Basophils (%) (Auto) 0.3 % (0.0-2.0) Sodium Level 134 MMOL/L (136-145) Potassium Level 4.5 MMOL/L (3.5-5.1) Chloride Level 100 MMOL/L (98-107) Carbon Dioxide Level 23 MMOL/L (21-32) Anion Gap 11 mmol/L (5-15) Blood Urea Nitrogen 37 mg/dL (7-18) Creatinine 1.3 MG/DL (0.55-1.30) Estimat Glomerular Filtration Rate mL/min (>60) Glucose Level 150 MG/DL (74-106) Calcium Level 9.2 MG/DL (8.5-10.1) Phosphorus Level 4.6 MG/DL (2.5-4.9) Magnesium Level 2.1 MG/DL (1.8-2.4) Total Bilirubin 1.1 MG/DL (0.2-1.0) Direct Bilirubin 0.3 MG/DL (0.0-0.3) Aspartate Amino Transf (AST/SGOT) 73 U/L (15-37) Alanine Aminotransferase (ALT/SGPT) 77 U/L (12-78) Alkaline Phosphatase 220 U/L (46-116) Total Creatine Kinase 47 U/L (26-308) Creatine Kinase MB < 0.5 NG/ML (0.0-3.6) Creatine Kinase MB Relative Index 1.0 Troponin I 0.004 ng/mL (0.000-0.056) Total Protein 8.0 G/DL (6.4-8.2) Albumin 2.7 G/DL (3.4-5.0) Globulin 5.3 g/dL Albumin/Globulin Ratio 0.5 (1.0-2.7) Lactic Acid Level 4.40 mmol/L (0.66-2.22) Urine Color Yellow Urine Appearance Clear Urine pH 7 (4.5-8.0) Urine Specific [place] 1.010 (1.005-1.035) Urine Protein 2+ (NEGATIVE) Urine Glucose (UA) Negative (NEGATIVE) Urine Ketones Negative (NEGATIVE) Urine Occult Blood 4+ (NEGATIVE) Urine Nitrite Negative (NEGATIVE) Urine Bilirubin Negative (NEGATIVE) Urine Urobilinogen 4 MG/DL (0.0-1.0) Urine Leukocyte Esterase 3+ (NEGATIVE) Urine RBC 5-10 /HPF (0 - 0) Urine WBC 2-4 /HPF (0 - 0) Urine Squamous Epithelial Cells None /LPF (NONE/OCC) Urine Amorphous Sediment Few /LPF (NONE) Urine Bacteria Few /HPF (NONE) EKG Diagnostic Results Rate: normal Rhythm: NSR ST Segments: no acute changes - 90 Rhythm Strip Diag. Results EP Interpretation: yes Rhythm: NSR, no PVC's, no ectopy Last Vital Signs Date Time Temp Pulse Resp B/P (MAP) Pulse Ox O2 Delivery O2 Flow Rate FiO2 12/16/17 14:04 98.2 101 18 98/65 93 Room Air 98.2 Status: unchanged Disposition: ADMITTED INPATIENT Condition: Serious Minesh West MD December 16, 2017 14:16
[2017-12-16] MEDS ORDERED: ACETAMINOPHEN325 M1 ORAL (14:37)
[2017-12-16] MEDS ORDERED: TRAMADOL HCL50 MG ORAL (14:37)
[2017-12-16] MEDS ORDERED: DULCOLAX10 MG RC (14:37)
[2017-12-16] MEDS ORDERED: CARDURA1 MG ORAL (14:37)
[2017-12-16] MEDS ORDERED: MILK OF MA400 MG/51 ORAL (14:37)
[2017-12-16] MEDS ORDERED: FLEET ENEMA133 ML RECTAL (14:37)
[2017-12-16 14:53] LABS: BASOPHILS % (AUTO) 0.3 % (0.0-2.0); HEMATOCRIT 34.8 % (42.0-52.0); LYMPHOCYTES % (AUTO) 5.4 % (20.0-45.0); MEAN CORPUSCULAR VOLUME 83 FL (80-99); MONOCYTES % (AUTO) 13.1 % (1.0-10.0); NEUTROPHILS % (AUTO) 81.2 % (45.0-75.0); PLATELET COUNT 233 K/UL (150-450); RED CELL DISTRIBUTION WIDTH 15.7 % (11.6-14.8); WHITE BLOOD COUNT 7.1 K/UL (4.8-10.8)
--- NOTE | 2017-12-16 15:27 | Diagnostic Imaging Report ---
Indication: Dyspnea Technique: XRAY Chest 1v Comparison: None Findings: Heart size and mediastinal contours are within normal limits. There are atherosclerotic calcifications. There are patchy right-sided airspace opacities. There is no pleural effusion or pneumothorax. There is gliosis and degenerative changes in the spine. No acute osseous abnormality. Impression: Patchy right-sided airspace opacities most concerning for pneumonia. Clinical correlation and radiographic follow-up to resolution recommended.
[2017-12-16] MEDS ORDERED: Isovue-300 100ml vial INJ PRN (15:30)
[2017-12-16] MEDS ORDERED: Acetaminophen 650mg/20.3ml GT ONE (15:30)
--- NOTE | 2017-12-16 15:30 | Diagnostic Imaging Report ---
Indication: Abdominal pain Technique: XRAY Abdomen 1v Comparison: None Findings: Gastrostomy tube noted. Bowel gas pattern is nonspecific with some gaseous distention of large and small bowel loops. Visualized small bowel loops are not abnormally dilated. There are degenerative changes of the spine. Atherosclerotic calcifications noted. No acute osseous abnormality seen. Cholecystectomy clips noted in the right upper quadrant. Impression: Nonspecific but not overtly obstructive bowel gas pattern. Prior cholecystectomy. Colostomy tube.
[2017-12-16 15:33] LABS: ANION GAP 11 mmol/L (5-15); BLOOD UREA NITROGEN 37 mg/dL (7-18); CALCIUM 9.2 MG/DL (8.5-10.1); CARBON DIOXIDE 23 MMOL/L (21-32); CHLORIDE 100 MMOL/L (98-107); CREATININE 1.3 MG/DL (0.55-1.30); POTASSIUM 4.5 MMOL/L (3.5-5.1); SODIUM 134 MMOL/L (136-145)
[2017-12-16 15:35] VITALS: BP 114/64
[2017-12-16 15:46] LABS: ALANINE AMINOTRANSFERASE 77 U/L (12-78); ALBUMIN 2.7 G/DL (3.4-5.0); ALBUMIN/GLOBULIN RATIO 0.5 (1.0-2.7); ALKALINE PHOSPHATASE 220 U/L (46-116); ASPARTATE AMINO TRANSFERASE 73 U/L (15-37); BILIRUBIN,TOTAL 1.1 MG/DL (0.2-1.0); CKMB < 0.5 NG/ML (0.0-3.6); CREATINE KINASE 47 U/L (26-308); PHOSPHORUS 4.6 MG/DL (2.5-4.9)
[2017-12-16 15:50] LABS: BILIRUBIN,DIRECT 0.3 MG/DL (0.0-0.3)
[2017-12-16 16:51] LABS: APPEARANCE,URINE CLEAR; BILIRUBIN, URINE NEGATIVE (NEGATIVE); GLUCOSE, URINE (UA) NEGATIVE (NEGATIVE); KETONES,URINE NEGATIVE (NEGATIVE); LEUKOCYTE ESTERASE ,URINE 3+ (NEGATIVE); NITRITE,URINE NEGATIVE (NEGATIVE); PH,URINE 7 (4.5-8.0); PROTEIN,URINE 2+ (NEGATIVE); UROBILINOGEN,URINE 4 MG/DL (0.0-1.0)
[2017-12-16 16:56] LABS: COLOR,URINE YELLOW
[2017-12-16] MEDS ORDERED: Acetaminophen 650mg/20.3ml ONE (18:18)
[2017-12-16 18:34] VITALS: BP 108/57
[2017-12-16 20:00] VITALS: BP 116/49
[2017-12-16] MEDS ORDERED: Acetaminophen 500mg (ES) tab ORAL PRN (20:15)
[2017-12-16] MEDS ORDERED: Albuterol/Ipratropium 3ml neb HHN PRN (20:15)
[2017-12-16] MEDS: Piperacillin/Tazobactam 3.375 GM in D5W 110 ML IVPB SCH (21:36)
[2017-12-16] MEDS: Vitamin B12 1000mcg/ml Inj SUBQ SCH (21:46)
[2017-12-16] MEDS: Tamsulosin 0.4mg cap ORAL SCH (21:46)
[2017-12-16] MEDS: Atorvastatin 20mg tab ORAL SCH (21:46)
[2017-12-16] MEDS ORDERED: Heparin 5000 units/ml inj SUBQ SCH ×2 (22:00→23:30)
[2017-12-17] VITALS: BP 144/77
[2017-12-17] MEDS: Heparin 5000 units/ml inj SUBQ SCH ×3 (00:32→22:02)
[2017-12-17 04:00] VITALS: BP 125/66
[2017-12-17] MEDS: Piperacillin/Tazobactam 3.375 GM in D5W 110 ML IVPB SCH ×3 (05:35→23:53)
[2017-12-17] MEDS: Multivitamin w/Minerals tab ORAL SCH (08:18)
[2017-12-17] MEDS: Doxazosin 1mg Tab ORAL SCH (08:18)
[2017-12-17] MEDS: Docusate 100mg cap ORAL SCH ×2 (08:18→17:48)
[2017-12-17] MEDS: Aspirin Baby 81mg ORAL SCH (08:18)
[2017-12-17] MEDS: Milk of Magnesia 30ml Ud ORAL SCH (08:19)
--- NOTE | 2017-12-17 08:30 | History and Physical Report ---
DATE OF ADMISSION: 12/16/2017 CHIEF COMPLAINT: Pneumonia and sepsis. HISTORY OF PRESENT ILLNESS: The patient is a 72-year-old male. He has a history of failure to thrive, status post G-tube, encephalopathy, hypertension, BPH, and hyperlipidemia. He has a prior history of sepsis, urinary tract infection, and pneumonia. He was transferred from a assisted facility after he had an episode of vomiting and later fever. The patient is currently somewhat sleepy. There are no reports of any chest pain or shortness of breath. No diarrhea. There has been no reports of any cough. On evaluation in the emergency room, the patient had a white count of 7 and sodium is 134. His lactic acid level was elevated at 2.6 and later 4.4. He had evidence of pneumonia on x-ray and is now admitted for further evaluation and care. PAST MEDICAL HISTORY: As above. PAST SURGICAL HISTORY: Includes a prior history of a G-tube. CURRENT MEDICATIONS: Reconciled and reviewed. ALLERGIES: None. FAMILY HISTORY: None. SOCIAL HISTORY: There is no known history of tobacco, ethanol, or drugs. REVIEW OF SYSTEMS: Unobtainable as the patient is confused. PHYSICAL EXAMINATION: VITAL SIGNS: Temperature 99.5, pulse 102, respirations 16, and blood pressure 116/49. GENERAL: The patient is a chronically ill-appearing thin male, in no apparent distress. He is somewhat somnolent. He is able to answer some simple questions and follow some simple commands. NECK: Supple. There is no jugular venous distention. HEART: Tachycardic. LUNGS: Significant for bilateral rhonchi. ABDOMEN: Soft, nontender, and nondistended. G-tube site was clean. EXTREMITIES: Without clubbing, cyanosis, or edema. LABORATORY DATA: White count of 7, hemoglobin 11, hematocrit 34, and platelets 233,000. Sodium 134 and potassium 4.5. Bilirubin is 1.1. AST 73 and alkaline phosphatase 220. UA showed 2 to 4 wbc's. Chest x-ray showed right-sided infiltrates consistent with a possible pneumonia. ASSESSMENT: This is a pleasant male admitted with complaints of sepsis secondary to pneumonia. 1. Sepsis. 2. Pneumonia. 3. Possible aspiration pneumonia. 4. History of hypertension. 5. Failure to thrive, status post gastrostomy tube. 6. Toxic metabolic encephalopathy. 7. History of urinary tract infection. 8. Anemia. PLAN: 1. IV antibiotics. 2. Respiratory treatments. 3. Follow up pending cultures. 4. Monitor chest x-ray. 5. Cautious feeds. 6. Monitor residuals. Jarrod Vásquez M.D. DR: CLARA JOB#: [id number] CC:
[2017-12-17 08:40] LABS: BASOPHILS % (AUTO) 0.2 % (0.0-2.0); EOSINOPHILS % (AUTO) 0.1 % (0.0-3.0); HEMOGLOBIN 9.5 G/DL (14.2-18.0); LYMPHOCYTES % (AUTO) 6.9 % (20.0-45.0); MEAN CORPUSCULAR VOLUME 81 FL (80-99); MONOCYTES % (AUTO) 12.6 % (1.0-10.0); NEUTROPHILS % (AUTO) 80.2 % (45.0-75.0); PLATELET COUNT 236 K/UL (150-450); RED BLOOD COUNT 3.55 M/UL (4.70-6.10); RED CELL DISTRIBUTION WIDTH 15.7 % (11.6-14.8); WHITE BLOOD COUNT 6.9 K/UL (4.8-10.8)
[2017-12-17] MEDS: Vancomycin 750mg/NS 250ml IVPB SCH ×2 (08:57→21:58)
--- NOTE | 2017-12-17 08:57 | Diagnostic Imaging Report ---
Clinical Indication: Abdominal pain, vomiting Technique: No oral contrast utilized, per emergency room physician request IV administration nonionic contrast. Venous phase spiral acquisition obtained through the abdomen and pelvis. Multiplanar reconstructions were generated. Total dose length product 470.75 mGycm. CTDIvol(s) 9.37 mGy. Dose reduction achieved using automated exposure control Comparison: 10/17/2005 Findings: There is image degradation due to motion artifact. Considerable stool is seen distally, mildly distending the rectum and distal sigmoid. No definite evidence of diverticulosis or diverticulitis. The appendix is normal. No small bowel distention. No free or loculated intraperitoneal air or fluid is evident. The distal esophagus is unremarkable. There is a gastrostomy in good position. The duodenum is unremarkable. The gallbladder is surgically absent. There is pneumobilia. No focal liver lesions. The pancreas is somewhat atrophic. The spleen, adrenals, right kidney are unremarkable. The left kidney demonstrates a lower pole cyst. No definite pelvic mass or adenopathy. The uterus is not visualized, likely surgically absent. The bladder is empty, contains a Manzo catheter. . Correlate with clinical findings The included lung bases demonstrate considerable consolidation in the bilateral lower lobes as well as some in the right middle lobe. The bones demonstrate degenerative spondylosis changes. Impression: Bilateral basilar pulmonary parenchymal infiltrates Pneumobilia. Correlate with any history of prior sphincterotomy. Evidence of prior cholecystectomy as well Mild rectal distention with stool, early fecal impaction possible No definite acute abdominal or pelvic process . Findings as noted, including degenerative spondylosis, Manzo catheter within an empty bladder, the prior hysterectomy, lower pole left renal cyst This agrees with the preliminary interpretation provided overnight by [facility] teleradiology service. The CT scanner at [facility] is accredited by the [employer] and the scans are performed using protocols designed to limit radiation exposure to as low as reasonably achievable to attain images of sufficient resolution adequate for diagnostic evaluation.
[2017-12-17 09:28] LABS: ALANINE AMINOTRANSFERASE 69 U/L (12-78); ALBUMIN 2.3 G/DL (3.4-5.0); ALBUMIN/GLOBULIN RATIO 0.5 (1.0-2.7); ALKALINE PHOSPHATASE 171 U/L (46-116); ANION GAP 10 mmol/L (5-15); ASPARTATE AMINO TRANSFERASE 61 U/L (15-37); BILIRUBIN,TOTAL 0.9 MG/DL (0.2-1.0); BLOOD UREA NITROGEN 37 mg/dL (7-18); CALCIUM 8.8 MG/DL (8.5-10.1); CARBON DIOXIDE 24 MMOL/L (21-32); CHLORIDE 102 MMOL/L (98-107); CREATININE 1.1 MG/DL (0.55-1.30); POTASSIUM 3.7 MMOL/L (3.5-5.1); SODIUM 136 MMOL/L (136-145)
--- NOTE | 2017-12-17 13:45 | Consultation ---
DATE OF CONSULTATION: 12/17/2017 INFECTIOUS DISEASES CONSULTATION CONSULTING PHYSICIAN: Sergio Urban M.D. REFERRING PHYSICIAN: Jarrod Vásquez M.D. REASON FOR CONSULTATION: Pneumonia. HISTORY OF PRESENTING ILLNESS: This is a 72-year-old gentleman with history of encephalopathy, hypertension, benign prostatic hypertrophy, who came in from the assisted facility with fevers and vomiting. He was seen in the emergency room where he was found to have a lactic acid level of 2.6 and was found to have a pneumonia and Infectious Diseases consultation has been obtained for antibiotics. PAST MEDICAL HISTORY: 1. History of encephalopathy. 2. Failure to thrive, status post G-tube placement. 3. Hypertension. 4. Benign prostatic hypertrophy. 5. Hyperlipidemia. SOCIAL HISTORY: No history of smoking, alcohol, or drug use. FAMILY HISTORY: Unknown. REVIEW OF SYSTEMS: Unable to obtain currently. MEDICATIONS: As an inpatient, the patient is on amlodipine, aspirin, docusate, Cardura, famotidine, milk of magnesia, multivitamin, vancomycin, Zosyn, subcutaneous heparin, atorvastatin, cyanocobalamin, Flomax, Tylenol, Zofran, ipratropium, albuterol, and iopamidol. ALLERGIES: No known drug allergies. PHYSICAL EXAMINATION: VITAL SIGNS: Temperature of 97.5, T-max of 101.7, pulse of 95, respiratory rate 22, blood pressure 132/78, and O2 saturation of 96%. HEENT: Pupils equally reactive to light and accommodation. Mouth appears clean without thrush. NECK: Supple. No adenopathy. No JVD. CARDIOVASCULAR: Regular rate and rhythm. No murmurs. LUNGS: Clear to auscultation bilaterally. No crackles. No wheezes. ABDOMEN: Soft and nontender. No organomegaly. G-tube site appears clean. EXTREMITIES: No cyanosis, no clubbing, no edema. LABORATORY AND DIAGNOSTIC DATA: White count of 6.9, hemoglobin 9.5, hematocrit 29, MCV 81, platelet count of 236 with neutrophils of 80%. Sodium 136, potassium 3.7, chloride 102, bicarb 24, BUN 37, creatinine 1.1, glucose 114, and calcium 8.8. Total bilirubin 0.9. AST 61, ALT 69, and alkaline phosphatase 171. Total protein 7.2. Albumin 2.3. UA showing 2 to 4 white cells. Blood cultures are pending. CT of the abdomen and pelvis showing bilateral basilar pulmonary parenchymal infiltrates. Chest x-ray showing patchy airspace opacities most concerning for pneumonia. ASSESSMENT: This is a 72-year-old gentleman with history of encephalopathy and hypertension, who comes in with: 1. Possible aspiration pneumonia. 2. Hypertension. 3. Benign prostatic hypertrophy. PLAN: 1. Continue vancomycin and Zosyn. 2. We will order sputum for Gram stain and culture. 3. We will follow up cultures and adjust antibiotics accordingly. I would like to thank, Dr. Vásquez, for this consultation. Sergio Urban M.D. DR: LIZETT JOB#: [id number] CC: Jarrod Vásquez M.D.
--- NOTE | 2017-12-17 13:45 | Consultation ---
DATE OF CONSULTATION: 12/17/2017 PULMONARY CONSULTATION CONSULTING PHYSICIAN: Nakul Cisse M.D. REFERRING PHYSICIAN: Jarrod Vásquez M.D. REASON FOR CONSULTATION: Shortness of breath and respiratory insufficiency. HISTORY OF PRESENT ILLNESS: This is a 72-year-old male who presents with fever and vomiting. The patient was sent in from the half-way. The patient apparently had vomiting, but no bright red blood. The patient was also noted to be more short of breath and more in distress. The patient's care discussed and reviewed. Findings discussed and reviewed. Orders reviewed. [facility] chart was reviewed. The patient is admitted and started on antibiotics and medications from the half-way were resumed. X-ray obtained shows patchy right-sided air space, possibly consistent with aspiration pneumonia and I was called to assist to evaluate further. The patient does have cough and congestion at present. He has no underlying history of chronic obstructive pulmonary disease. PAST MEDICAL HISTORY: Notable for hyperlipidemia, GI issues in the past, CVA, dementia, and syncope. MEDICATIONS: Reviewed. ALLERGIES: Reviewed. SOCIAL HISTORY: The patient is a half-way patient. Currently, nonsmoker and nondrinker. REVIEW OF SYSTEMS: Somewhat difficult to obtain due to the patient's mental state. PHYSICAL EXAMINATION: GENERAL: A well-developed male, somewhat altered. VITAL SIGNS: Sats 96% on 2 liters, temperature is 97.5, and blood pressure is 144/77. HEENT: Negative. Extraocular movements are intact. Oropharynx is moist. NECK: Supple. No adenopathy. LUNGS: Moderate breath sounds. No rhonchi or wheezes. CARDIAC: Normal S1, S2. Regular rate and rhythm without murmurs, rubs, or gallops. ABDOMEN: Soft, nontender, and nondistended. EXTREMITIES: No cyanosis, clubbing, or edema. NEUROLOGICAL: Grossly nonfocal and confused. LABORATORY DATA: Lab data reviewed. White count 10.1, hematocrit 34, and platelets 233,000. Chemistry noted and reviewed. BUN 37 and creatinine 1.3. Lactic acid 4.4. AST 73. Albumin 2.7. IMPRESSION: 1. Evidence of pneumonia, possible aspiration. 2. Nausea. 3. Vomiting. 4. Hyperlipidemia. 5. Cerebrovascular accident. RECOMMENDATIONS: 1. Supportive care. 2. Intravenous antibiotics empirically. 3. Respiratory care as needed. 4. Monitor oxygen needs and provide exogenous oxygen. 5. DVT prophylaxis. 6. Obtain sputum culture. 7. We will reassess and recommend further and assist with discharge planning once safe. Nakul Cisse M.D. DR: SUKI JOB#: [id number] CC:
--- NOTE | 2017-12-17 14:36 | Cardiology Report ---
APPROVED REPORT EKG Measurement Heart [id number] Normal sinus rhythm Septal infarct, age undetermined Abnormal ECG
[2017-12-17 16:00] VITALS: BP 125/67
[2017-12-17] MEDS ORDERED: Tubing IV Secondary IV ONE (17:36)
[2017-12-17] MEDS ORDERED: Sterile Water Irrig 1000ml IRRIG ONE (17:36)
[2017-12-17] MEDS ORDERED: NS 275ml ONE (17:36)
[2017-12-17 20:00] VITALS: BP 120/66
[2017-12-17] MEDS: Vitamin B12 1000mcg/ml Inj SUBQ SCH (21:58)
[2017-12-17] MEDS: Tamsulosin 0.4mg cap ORAL SCH (21:58)
[2017-12-17] MEDS: Atorvastatin 20mg tab ORAL SCH (21:58)
--- NOTE | 2017-12-17 23:29 | General Progress Note ---
Assessment/Plan Assessment/Plan Assessment - Transient N/V with resultant aspiration - abnormal LFT - OBS - HTN - CVA - dysphagia, PEG Recommendations - continue TF trial - check hepatitis serologies - Hold statin - follow labs Thank you Jose Luis Subjective Allergies: Coded Allergies: No Known Allergies (Unverified , 01/27/17) Objective Last 24 Hour Vital Signs Date Time Temp Pulse Resp B/P (MAP) Pulse Ox O2 Delivery O2 Flow Rate FiO2 12/17/17 20:00 90 12/17/17 20:00 98.9 99 16 120/66 96 Nasal Cannula 2.0 98.9 12/17/17 16:00 98 12/17/17 16:00 97.5 99 22 125/67 96 Nasal Cannula 2.0 97.5 12/17/17 12:00 102 12/17/17 08:19 95 132/78 12/17/17 08:00 91 12/17/17 04:00 95 12/17/17 04:00 97.5 100 22 125/66 96 Nasal Cannula 2.0 97.5 12/17/17 00:00 97.8 104 20 144/77 95 Nasal Cannula 2.0 97.8 Intake and Output 12/16/17 12/17/17 19:00 07:00 Intake Total 0 ml 815 ml Balance 0 ml 815 ml Intake Oral 0 ml IV Total 815 ml # Voids 2 Laboratory Tests 12/17/17 07:45: White Blood Count 6.9, Red Blood Count 3.55L, Hemoglobin 9.5L, Hematocrit 29.0L , Mean Corpuscular Volume 81, Mean Corpuscular Hemoglobin 26.8L, Mean Corpuscular Hemoglobin Concent 32.8, Red Cell Distribution Width 15.7H, Platelet Count 236, Mean Platelet Volume 6.3L, Neutrophils (%) (Auto) 80.2H, Lymphocytes (%) (Auto) 6.9L, Monocytes (%) (Auto) 12.6H, Eosinophils (%) (Auto) 0.1, Basophils (%) (Auto) 0.2, Sodium Level 136, Potassium Level 3.7, Chloride Level 102, Carbon Dioxide Level 24, Anion Gap 10, Blood Urea Nitrogen 37H, Creatinine 1.1, Estimat Glomerular Filtration Rate , Glucose Level 114H, Calcium Level 8.8, Total Bilirubin 0.9, Aspartate Amino Transf (AST/SGOT) 61H, Alanine Aminotransferase (ALT/SGPT) 69, Alkaline Phosphatase 171H, Total Protein 7.2, Albumin 2.3L, Globulin 4.9, Albumin/Globulin Ratio 0.5L Height (Feet): 6 Height (Inches): 1.00 Weight (Pounds): 180 Oli Amaya MD December 17, 2017 23:29
[2017-12-18 04:00] VITALS: BP 133/70
[2017-12-18] MEDS: Piperacillin/Tazobactam 3.375 GM in D5W 110 ML IVPB SCH ×3 (06:13→20:53)
--- NOTE | 2017-12-18 07:32 | Pulmonology Progress Note ---
Assessment/Plan Assessment/Plan IMPRESSION: 1. Evidence of pneumonia, possible aspiration. 2. Nausea. 3. Vomiting. 4. Hyperlipidemia. 5. Cerebrovascular accident. PLAN continue same respiratory care iv antibiotics check cxr oxygen not needed gt feeds aspiration precautions impression, plan, and exam edited and reviewed in detail care discussed with RN Subjective Allergies: Coded Allergies: No Known Allergies (Unverified , 01/27/17) Subjective awake no distress confused Objective Last 24 Hour Vital Signs Date Time Temp Pulse Resp B/P (MAP) Pulse Ox O2 Delivery O2 Flow Rate FiO2 12/18/17 04:00 98.5 99 16 133/70 97 Nasal Cannula 2.0 98.5 12/18/17 04:00 93 12/18/17 00:00 92 12/17/17 20:00 90 12/17/17 20:00 98.9 99 16 120/66 96 Nasal Cannula 2.0 98.9 12/17/17 16:00 98 12/17/17 16:00 97.5 99 22 125/67 96 Nasal Cannula 2.0 97.5 12/17/17 12:00 102 12/17/17 08:19 95 132/78 12/17/17 08:00 91 Intake and Output 12/17/17 12/18/17 19:00 07:00 # Voids 1 2 Objective GENERAL: A well-developed male, NAD HEENT: Negative. Extraocular movements are intact. Oropharynx is moist. NECK: Supple. No adenopathy. LUNGS: Moderate breath sounds. No rhonchi or wheezes. SAME CARDIAC: Normal S1, S2. Regular rate and rhythm without murmurs, rubs, or gallops. ABDOMEN: Soft, nontender, and nondistended. EXTREMITIES: No cyanosis, clubbing, or edema. NEUROLOGICAL: Grossly nonfocal and confused. Microbiology Date/Time Source Procedure Growth Status 12/16/17 14:30 Blood Blood Culture - Preliminary NO GROWTH AFTER 24 HOURS Resulted 12/16/17 14:15 Blood Blood Culture - Preliminary NO GROWTH AFTER 24 HOURS Resulted Laboratory Tests 12/17/17 07:45: White Blood Count 6.9, Red Blood Count 3.55L, Hemoglobin 9.5L, Hematocrit 29.0L , Mean Corpuscular Volume 81, Mean Corpuscular Hemoglobin 26.8L, Mean Corpuscular Hemoglobin Concent 32.8, Red Cell Distribution Width 15.7H, Platelet Count 236, Mean Platelet Volume 6.3L, Neutrophils (%) (Auto) 80.2H, Lymphocytes (%) (Auto) 6.9L, Monocytes (%) (Auto) 12.6H, Eosinophils (%) (Auto) 0.1, Basophils (%) (Auto) 0.2, Sodium Level 136, Potassium Level 3.7, Chloride Level 102, Carbon Dioxide Level 24, Anion Gap 10, Blood Urea Nitrogen 37H, Creatinine 1.1, Estimat Glomerular Filtration Rate , Glucose Level 114H, Calcium Level 8.8, Total Bilirubin 0.9, Aspartate Amino Transf (AST/SGOT) 61H, Alanine Aminotransferase (ALT/SGPT) 69, Alkaline Phosphatase 171H, Total Protein 7.2, Albumin 2.3L, Globulin 4.9, Albumin/Globulin Ratio 0.5L Current Medications Medications (Trade) Dose Ordered Sig/Iram Route PRN Reason Start Time Stop Time Status Last Admin Dose Admin Acetaminophen (Tylenol) 500 mg Q4H PRN ORAL Mild Pain/Temp > 100.5 12/16/17 20:15 01/15/18 20:14 Acetaminophen (Tylenol) 650 mg Q4H PRN ORAL Fever/Headache/Mild Pain 12/16/17 20:15 01/15/18 20:14 Albuterol/ Ipratropium (Albuterol/ Ipratropium) 3 ml Q4H PRN HHN Shortness of Breath 12/16/17 20:15 12/21/17 20:14 Amlodipine Besylate (Norvasc) 10 mg DAILY ORAL 12/17/17 09:00 01/16/18 08:59 12/17/17 08:19 Aspirin (ASA) 81 mg DAILY ORAL 12/17/17 09:00 01/16/18 08:59 12/17/17 08:18 Cyanocobalamin (Vitamin B12) 100 mcg QHS SUBQ 12/16/17 21:00 01/15/18 20:59 12/17/17 21:58 Docusate Sodium (Colace) 100 mg TWICE A DAY ORAL 12/17/17 09:00 01/16/18 08:59 12/17/17 17:48 Doxazosin Mesylate (Cardura) 1 mg DAILY ORAL 12/17/17 09:00 01/16/18 08:59 12/17/17 08:18 Famotidine (Pepcid) 20 mg DAILY ORAL 12/17/17 09:00 01/16/18 08:59 12/17/17 08:18 Heparin Sodium (Porcine) (Heparin 5000 units/ml) 5,000 units EVERY 12 HOURS SUBQ 12/16/17 22:00 01/15/18 21:59 12/17/17 22:02 Magnesium Hydroxide (Mom) 30 ml DAILY ORAL 12/17/17 09:00 01/16/18 08:59 12/17/17 08:19 Multivitamins Therapeutic (Therapeutic Multivitamin) 1 ea DAILY ORAL 12/17/17 09:00 01/16/18 08:59 12/17/17 08:18 Ondansetron HCl (Zofran) 4 mg Q6H PRN IVP Nausea & Vomiting 12/16/17 20:15 01/15/18 20:14 Piperacillin Sod/ Tazobactam Sod 3.375 gm/Dextrose 110 ml @ 27.5 mls/hr EVERY 8 HOURS IVPB 12/16/17 22:00 12/21/17 21:59 12/18/17 06:13 Sodium Chloride 1,000 ml @ 75 mls/hr [id number] IV 12/16/17 21:15 01/15/18 21:14 12/17/17 11:18 Tamsulosin HCl (Flomax) 0.4 mg BEDTIME ORAL 12/16/17 21:00 01/15/18 20:59 12/17/17 21:58 Vancomycin HCl (Vanco rx to dose) 1 ea DAILY PRN MISC Per rx protocol 12/16/17 20:15 01/15/18 20:14 Vancomycin/Sodium Chloride 250 ml @ 166.667 mls/hr Q12HR IVPB 12/17/17 09:00 12/22/17 08:59 12/17/17 21:58 Nakul Cisse MD December 18, 2017 07:32
--- NOTE | 2017-12-18 07:46 | Consultation ---
DATE OF CONSULTATION: 12/17/2017 NOTE: POOR AUDIO GASTROENTEROLOGY CONSULTATION CONSULTING PHYSICIAN: Oli Amaya M.D. CHIEF COMPLAINT: I was asked to see this patient by Dr. Jarrod Vásquez for evaluation of vomiting and abnormal liver tests. HISTORY OF PRESENT ILLNESS: The patient is a pleasant 72-year-old [place]ian man, who has dementia and is living in a mcc who was brought in for one-day history of nausea and vomiting. The patient's daughters are at bedside and they state that he had one day of vomiting, but no hematemesis or diarrhea. He is doing better today. He has not had any more vomiting. He does not eat by mouth due to aspiration risk, but gets gastrostomy tube feeding on a long-term basis. The gastrostomy tube was placed approximately six months ago for recent history of stroke. He also has abnormal liver tests. No liver history available on this patient. He does appear based on his imaging studies has had a cholecystectomy. PAST MEDICAL HISTORY: History of dementia, hypercholesterolemia, hypertension, benign prostatic hypertrophy, dysphagia, hyperlipidemia, encephalopathy, history of sepsis, history of urinary tract infection, and history of pneumonia. PAST SURGICAL HISTORY: Status post gastrostomy tube placement six months ago and status post cholecystectomy. MEDICATIONS: See the chart list for details. SOCIAL HISTORY: The patient is . He has had no significant history of smoking or drinking. FAMILY HISTORY: Noncontributory. REVIEW OF SYSTEMS: Otherwise unobtainable. PHYSICAL EXAMINATION: GENERAL: A pleasant elderly [place]ian man, seen in his room with family at bedside. HEENT: Normocephalic and atraumatic. Sclerae are anicteric. Oropharynx is clear. NECK: Supple. CHEST: Reveals scattered rhonchi. CARDIOVASCULAR: Revealed regular rate. ABDOMEN: Soft with good bowel sounds and gastrostomy tube, which is in good position. EXTREMITIES: Revealed some contracture deformities. NEUROLOGIC: Notable for dementia. LABORATORY DATA: Laboratory data was noted. ASSESSMENT: The patient presents with nausea and vomiting of unclear etiology. Given the transient nature of this process, viral gastroenteritis will be the most likely cause and resolves uneventfully. The patient also has some abnormal liver test with some degree of resolution. His CT scan with contrast does not show any focal lesions. A repeat ultrasound can be considered to evaluate the biliary tree. RECOMMENDATIONS: 1. Oral intake as tolerated. 2. Follow laboratory parameters. 3. Check hepatitis serology. 4. Check cholesterol medication to see if the liver test will improve. 5. Further recommendations to follow. Thank you for asking me to participate in the care of this patient. Oli Amaya M.D. DR: DIONNA JOB#: [id number] CC: CHRISTEN
[2017-12-18 08:00] VITALS: BP 156/68
--- NOTE | 2017-12-18 08:08 | General Progress Note ---
Assessment/Plan Problem List: (1) HTN (hypertension) ICD Codes: I10 - Essential (primary) hypertension SNOMED: 29124816 (2) BPH (benign prostatic hyperplasia) ICD Codes: N40.0 - Benign prostatic hyperplasia without lower urinary tract symptoms SNOMED: 673843148, 911346526 (3) Hyperlipidemia ICD Codes: E78.5 - Hyperlipidemia, unspecified SNOMED: 10260536 (4) Dementia ICD Codes: F03.90 - Unspecified dementia without behavioral disturbance SNOMED: 30285294 (5) Probable sepsis ICD Codes: A41.9 - Sepsis, unspecified organism SNOMED: 907312730 (6) Encephalopathy ICD Codes: G93.40 - Encephalopathy, unspecified SNOMED: 47846132 (7) Pneumonia ICD Codes: J18.9 - Pneumonia, unspecified organism SNOMED: 680899070 Status: stable, progressing Assessment/Plan iv abx follow up cultures gt feeds monitor for aspiration resp rx monitor cxr skin care Subjective ROS Limited/Unobtainable: No Constitutional: Reports: malaise, weakness HEENT: Reports: no symptoms Cardiovascular: Reports: no symptoms Respiratory: Reports: no symptoms Gastrointestinal/Abdominal: Reports: difficulty swallowing Genitourinary: Reports: no symptoms Neurologic/Psychiatric: Reports: pre-existing deficit Endocrine: Reports: no symptoms Hematologic/Lymphatic: Reports: no symptoms Allergies: Coded Allergies: No Known Allergies (Unverified , 01/27/17) All Systems: reviewed and negative except above Subjective better today. no fever. less congested. tolerating feeds Objective Last 24 Hour Vital Signs Date Time Temp Pulse Resp B/P (MAP) Pulse Ox O2 Delivery O2 Flow Rate FiO2 12/18/17 04:00 98.5 99 16 133/70 97 Nasal Cannula 2.0 98.5 12/18/17 04:00 93 12/18/17 00:00 92 12/17/17 20:00 90 12/17/17 20:00 98.9 99 16 120/66 96 Nasal Cannula 2.0 98.9 12/17/17 16:00 98 12/17/17 16:00 97.5 99 22 125/67 96 Nasal Cannula 2.0 97.5 12/17/17 12:00 102 12/17/17 08:19 95 132/78 Intake and Output 12/17/17 12/18/17 19:00 07:00 # Voids 1 2 Height (Feet): 6 Height (Inches): 1.00 Weight (Pounds): 180 General Appearance: WD/WN, thin Neck: supple Cardiovascular: normal rate, regular rhythm Respiratory/Chest: chest wall non-tender, lungs clear, normal breath sounds, no respiratory distress Abdomen: normal bowel sounds, non tender, soft, no organomegaly Edema: no edema noted Arm (L), no edema noted Arm (R), no edema noted Leg (L), no edema noted Leg (R), no edema noted Pedal (L), no edema noted Pedal (R), no edema noted Generalized Neurologic: alert, disoriented PUJA OLIVA December 18, 2017 08:08
[2017-12-18] MEDS: Vancomycin 750mg/NS 250ml IVPB SCH (09:22)
[2017-12-18] MEDS: Milk of Magnesia 30ml Ud ORAL SCH (09:37)
[2017-12-18] MEDS: Multivitamin w/Minerals tab ORAL SCH (09:37)
[2017-12-18] MEDS: Aspirin Baby 81mg ORAL SCH (09:38)
[2017-12-18] MEDS: Doxazosin 1mg Tab ORAL SCH (09:38)
[2017-12-18] MEDS: Docusate 100mg cap ORAL SCH ×2 (09:38→18:41)
[2017-12-18] MEDS: Heparin 5000 units/ml inj SUBQ SCH ×2 (09:40→20:57)
[2017-12-18 12:00] VITALS: BP 134/69
--- NOTE | 2017-12-18 12:56 | Infectious Diseases Prog Note ---
Assessment/Plan Assessment/Plan A: Sepsis Pneumonia BPH Dementia VRE colonization Gastrostomy status Lactic acidosis Elevated transaminase P: Continue Vancomycin & Zosyn will f/u cultures Subjective ROS Limited/Unobtainable: Yes Constitutional: Reports: no symptoms Allergies: Coded Allergies: No Known Allergies (Unverified , 01/27/17) Objective Vital Signs Last 24 Hour Vital Signs Date Time Temp Pulse Resp B/P (MAP) Pulse Ox O2 Delivery O2 Flow Rate FiO2 12/18/17 12:00 97.7 82 20 134/69 97 Room Air 97.7 12/18/17 09:37 79 156/68 12/18/17 08:00 72 12/18/17 08:00 97.2 79 20 156/68 97 Room Air 97.2 12/18/17 04:00 98.5 99 16 133/70 97 Nasal Cannula 2.0 98.5 12/18/17 04:00 93 12/18/17 00:00 92 12/17/17 20:00 90 12/17/17 20:00 98.9 99 16 120/66 96 Nasal Cannula 2.0 98.9 12/17/17 16:00 98 12/17/17 16:00 97.5 99 22 125/67 96 Nasal Cannula 2.0 97.5 Height (Feet): 6 Height (Inches): 1.00 Weight (Pounds): 180 General Appearance: no acute distress Respiratory/Chest: lungs clear Cardiovascular: normal rate Abdomen: soft, non tender, other - GT feeding Extremities: no edema Skin: no rash Neurologic/Psychiatric: alert, responsive Microbiology Date/Time Source Procedure Growth Status 12/16/17 14:30 Blood Blood Culture - Preliminary NO GROWTH AFTER 24 HOURS Resulted 12/16/17 14:15 Blood Blood Culture - Preliminary NO GROWTH AFTER 24 HOURS Resulted 12/16/17 14:30 Nasal Nares MRSA Culture - Final NO METHICILLIN RESISTANT STAPH AUREUS... Complete 12/16/17 14:30 Rectum VRE Culture - Final Enterococcus Faecium - Vre Complete Laboratory Tests Test 12/18/17 07:50 Vancomycin Level Trough 11.7 ug/mL (5.0-12.0) Hepatitis A IgM Antibody Pending Hepatitis B Surface Antigen Pending Hepatitis B Core IgM Antibody Pending Hepatitis C Antibody Pending Current Medications Medications (Trade) Dose Ordered Sig/Iram Route PRN Reason Start Time Stop Time Status Last Admin Dose Admin Acetaminophen (Tylenol) 500 mg Q4H PRN ORAL Mild Pain/Temp > 100.5 12/16/17 20:15 01/15/18 20:14 Acetaminophen (Tylenol) 650 mg Q4H PRN ORAL Fever/Headache/Mild Pain 12/16/17 20:15 01/15/18 20:14 Albuterol/ Ipratropium (Albuterol/ Ipratropium) 3 ml Q4H PRN HHN Shortness of Breath 12/16/17 20:15 12/21/17 20:14 Amlodipine Besylate (Norvasc) 10 mg DAILY ORAL 12/17/17 09:00 01/16/18 08:59 12/18/17 09:37 Aspirin (ASA) 81 mg DAILY ORAL 12/17/17 09:00 01/16/18 08:59 12/18/17 09:38 Cyanocobalamin (Vitamin B12) 100 mcg QHS SUBQ 12/16/17 21:00 01/15/18 20:59 12/17/17 21:58 Docusate Sodium (Colace) 100 mg TWICE A DAY ORAL 12/17/17 09:00 01/16/18 08:59 12/18/17 09:38 Doxazosin Mesylate (Cardura) 1 mg DAILY ORAL 12/17/17 09:00 01/16/18 08:59 12/18/17 09:38 Famotidine (Pepcid) 20 mg DAILY ORAL 12/17/17 09:00 01/16/18 08:59 12/18/17 09:37 Heparin Sodium (Porcine) (Heparin 5000 units/ml) 5,000 units EVERY 12 HOURS SUBQ 12/16/17 22:00 01/15/18 21:59 12/18/17 09:40 Magnesium Hydroxide (Mom) 30 ml DAILY ORAL 12/17/17 09:00 01/16/18 08:59 12/18/17 09:37 Multivitamins Therapeutic (Therapeutic Multivitamin) 1 ea DAILY ORAL 12/17/17 09:00 01/16/18 08:59 12/18/17 09:37 Ondansetron HCl (Zofran) 4 mg Q6H PRN IVP Nausea & Vomiting 12/16/17 20:15 01/15/18 20:14 Piperacillin Sod/ Tazobactam Sod 3.375 gm/Dextrose 110 ml @ 27.5 mls/hr EVERY 8 HOURS IVPB 12/16/17 22:00 12/21/17 21:59 12/18/17 06:13 Sodium Chloride 1,000 ml @ 75 mls/hr [id number] IV 12/16/17 21:15 01/15/18 21:14 12/17/17 11:18 Tamsulosin HCl (Flomax) 0.4 mg BEDTIME ORAL 12/16/17 21:00 01/15/18 20:59 12/17/17 21:58 Vancomycin HCl (Vanco rx to dose) 1 ea DAILY PRN MISC Per rx protocol 12/16/17 20:15 01/15/18 20:14 Vancomycin HCl 1 gm/Dextrose 275 ml @ 183.708 mls/hr Q12H IVPB 12/18/17 18:00 12/23/17 17:59 STEFANI CONLEY December 18, 2017 12:56
[2017-12-18 16:00] VITALS: BP 128/55
[2017-12-18] MEDS: Vancomycin 1gm/D5W 275ml IVPB SCH ×2 (19:12)
[2017-12-18 20:00] VITALS: BP 123/65
--- NOTE | 2017-12-18 20:45 | General Progress Note ---
Assessment/Plan Assessment/Plan Assessment - Transient N/V with resultant aspiration - abnormal LFT - OBS - HTN - CVA - dysphagia, PEG Recommendations - continue TF trial - check hepatitis serologies - Hold statin - follow labs Subjective Allergies: Coded Allergies: No Known Allergies (Unverified , 01/27/17) Subjective above noted NAD no further vomiting reported Objective Last 24 Hour Vital Signs Date Time Temp Pulse Resp B/P (MAP) Pulse Ox O2 Delivery O2 Flow Rate FiO2 12/18/17 20:26 82 18 Room Air 21 12/18/17 20:00 98.1 82 20 123/65 95 Room Air 98.1 12/18/17 16:00 97.3 85 20 128/55 98 Room Air 97.3 12/18/17 16:00 86 12/18/17 12:00 83 12/18/17 12:00 97.7 82 20 134/69 97 Room Air 97.7 12/18/17 10:15 75 16 Room Air 21 12/18/17 09:37 79 156/68 12/18/17 08:00 72 12/18/17 08:00 97.2 79 20 156/68 97 Room Air 97.2 12/18/17 04:00 98.5 99 16 133/70 97 Nasal Cannula 2.0 98.5 12/18/17 04:00 93 12/18/17 00:00 92 Intake and Output 12/17/17 12/18/17 19:00 07:00 # Voids 1 2 Laboratory Tests 12/18/17 07:50: Vancomycin Level Trough 11.7, Hepatitis A IgM Antibody [Pending], Hepatitis B Surface Antigen [Pending], Hepatitis B Core IgM Antibody [Pending], Hepatitis C Antibody [Pending] Height (Feet): 6 Height (Inches): 1.00 Weight (Pounds): 180 Objective WDWN NCAT supple Chest Occ Ronchi RRR abd soft ND NT, GT OK no edema OBS Oli Amaya MD December 18, 2017 20:45
[2017-12-18] MEDS: Tamsulosin 0.4mg cap ORAL SCH (20:54)
[2017-12-18] MEDS: Vitamin B12 1000mcg/ml Inj SUBQ SCH (20:54)
[2017-12-18] MEDS ORDERED: Sterile Water Irrig 1000ml IRRIG ONE (22:25)
[2017-12-18] MEDS ORDERED: NS 275ml ONE (22:25)
[2017-12-19 04:00] VITALS: BP 139/68
[2017-12-19] MEDS: Piperacillin/Tazobactam 3.375 GM in D5W 110 ML IVPB SCH ×3 (06:00→23:13)
[2017-12-19] MEDS: Vancomycin 1gm/D5W 275ml IVPB SCH ×4 (06:00→18:07)
[2017-12-19 08:00] VITALS: BP 147/68
[2017-12-19 08:29] LABS: EOSINOPHILS % (AUTO) 0.1 % (0.0-3.0); HEMOGLOBIN 8.6 G/DL (14.2-18.0); LYMPHOCYTES % (AUTO) 8.7 % (20.0-45.0); MEAN CORPUSCULAR VOLUME 84 FL (80-99); MONOCYTES % (AUTO) 13.4 % (1.0-10.0); NEUTROPHILS % (AUTO) 76.9 % (45.0-75.0); PLATELET COUNT 248 K/UL (150-450); RED BLOOD COUNT 3.24 M/UL (4.70-6.10); RED CELL DISTRIBUTION WIDTH 15.7 % (11.6-14.8); WHITE BLOOD COUNT 4.3 K/UL (4.8-10.8)
[2017-12-19] MEDS: Heparin 5000 units/ml inj SUBQ SCH ×2 (08:43→23:15)
[2017-12-19] MEDS: Docusate 100mg cap ORAL SCH ×2 (08:43→18:07)
[2017-12-19] MEDS: Multivitamin w/Minerals tab ORAL SCH (08:43)
[2017-12-19] MEDS: Aspirin Baby 81mg ORAL SCH (08:43)
[2017-12-19] MEDS: Milk of Magnesia 30ml Ud ORAL SCH (08:43)
[2017-12-19] MEDS: Doxazosin 1mg Tab ORAL SCH (08:44)
--- NOTE | 2017-12-19 08:53 | General Progress Note ---
Assessment/Plan Problem List: (1) HTN (hypertension) ICD Codes: I10 - Essential (primary) hypertension SNOMED: 93962608 (2) BPH (benign prostatic hyperplasia) ICD Codes: N40.0 - Benign prostatic hyperplasia without lower urinary tract symptoms SNOMED: 918240183, 388863829 (3) Hyperlipidemia ICD Codes: E78.5 - Hyperlipidemia, unspecified SNOMED: 62893800 (4) Dementia ICD Codes: F03.90 - Unspecified dementia without behavioral disturbance SNOMED: 38786471 (5) Probable sepsis ICD Codes: A41.9 - Sepsis, unspecified organism SNOMED: 337091691 (6) Encephalopathy ICD Codes: G93.40 - Encephalopathy, unspecified SNOMED: 89053158 (7) Pneumonia ICD Codes: J18.9 - Pneumonia, unspecified organism SNOMED: 025655922 Status: stable, progressing Assessment/Plan iv abx follow up cultures gt feeds dc ivf monitor h/h 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 resp rx monitor cxr skin care d/w Subjective ROS Limited/Unobtainable: No Constitutional: Reports: malaise, weakness HEENT: Reports: no symptoms Cardiovascular: Reports: no symptoms Respiratory: Reports: cough, shortness of breath, sputum Gastrointestinal/Abdominal: Reports: difficulty swallowing Genitourinary: Reports: no symptoms Neurologic/Psychiatric: Reports: pre-existing deficit Endocrine: Reports: no symptoms Hematologic/Lymphatic: Reports: no symptoms Allergies: Coded Allergies: No Known Allergies (Unverified , 01/27/17) All Systems: reviewed and negative except above Subjective better today. no fever. less congested. tolerating feeds Objective Last 24 Hour Vital Signs Date Time Temp Pulse Resp B/P (MAP) Pulse Ox O2 Delivery O2 Flow Rate FiO2 12/19/17 08:43 83 147/68 12/19/17 08:00 98.1 83 19 147/68 97 Room Air 98.1 12/19/17 04:00 97.3 85 20 139/68 98 Room Air 97.3 12/19/17 04:00 63 12/19/17 00:00 75 12/18/17 20:26 82 18 Room Air 21 12/18/17 20:00 82 12/18/17 20:00 98.1 82 20 123/65 95 Room Air 98.1 12/18/17 16:00 97.3 85 20 128/55 98 Room Air 97.3 12/18/17 16:00 86 12/18/17 12:00 83 12/18/17 12:00 97.7 82 20 134/69 97 Room Air 97.7 12/18/17 10:15 75 16 Room Air 21 12/18/17 09:37 79 156/68 Intake and Output 12/18/17 12/19/17 19:00 07:00 # Voids 2 3 # Bowel Movements 1 Laboratory Tests 12/19/17 07:40: White Blood Count 4.3L, Red Blood Count 3.24L, Hemoglobin 8.6L, Hematocrit 27.0L , Mean Corpuscular Volume 84, Mean Corpuscular Hemoglobin 26.6L, Mean Corpuscular Hemoglobin Concent 31.9L, Red Cell Distribution Width 15.7H, Platelet Count 248, Mean Platelet Volume 5.5L, Neutrophils (%) (Auto) 76.9H, Lymphocytes (%) (Auto) 8.7L, Monocytes (%) (Auto) 13.4H, Eosinophils (%) (Auto) 0.1, Basophils (%) (Auto) 1.0, Sodium Level [Pending], Potassium Level [Pending] , Chloride Level [Pending], Carbon Dioxide Level [Pending], Blood Urea Nitrogen [Pending], Creatinine [Pending], Estimat Glomerular Filtration Rate [Pending], Glucose Level [Pending], Lactic Acid Level [Pending], Calcium Level [Pending], Total Bilirubin [Pending], Aspartate Amino Transf (AST/SGOT) [Pending], Alanine Aminotransferase (ALT/SGPT) [Pending], Alkaline Phosphatase [Pending], Total Protein [Pending], Albumin [Pending], Globulin [Pending] Height (Feet): 6 Height (Inches): 1.00 Weight (Pounds): 180 General Appearance: WD/WN, alert Neck: supple Cardiovascular: regular rhythm Respiratory/Chest: lungs clear, normal breath sounds Abdomen: normal bowel sounds, non tender, soft Edema: no edema noted Arm (L), no edema noted Arm (R), no edema noted Leg (L), no edema noted Leg (R), no edema noted Pedal (L), no edema noted Pedal (R), no edema noted Generalized UOMOTO,PUJA December 19, 2017 08:53
[2017-12-19 08:54] LABS: ALANINE AMINOTRANSFERASE 66 U/L (12-78); ALBUMIN/GLOBULIN RATIO 0.4 (1.0-2.7); ALKALINE PHOSPHATASE 170 U/L (46-116); ANION GAP 9 mmol/L (5-15); ASPARTATE AMINO TRANSFERASE 72 U/L (15-37); BILIRUBIN,TOTAL 0.4 MG/DL (0.2-1.0); BLOOD UREA NITROGEN 22 mg/dL (7-18); CALCIUM 8.5 MG/DL (8.5-10.1); CARBON DIOXIDE 25 MMOL/L (21-32); CHLORIDE 104 MMOL/L (98-107); CREATININE 0.8 MG/DL (0.55-1.30); POTASSIUM 3.1 MMOL/L (3.5-5.1); SODIUM 138 MMOL/L (136-145)
--- NOTE | 2017-12-19 10:42 | Infectious Diseases Prog Note ---
Assessment/Plan Assessment/Plan A: Sepsis Pneumonia BPH Dementia VRE colonization Gastrostomy status Lactic acidosis Elevated transaminase P: Continue Vancomycin & Zosyn will f/u cultures Subjective ROS Limited/Unobtainable: Yes Allergies: Coded Allergies: No Known Allergies (Unverified , 01/27/17) Objective Vital Signs Last 24 Hour Vital Signs Date Time Temp Pulse Resp B/P (MAP) Pulse Ox O2 Delivery O2 Flow Rate FiO2 12/19/17 08:43 83 147/68 12/19/17 08:00 98.1 83 19 147/68 97 Room Air 98.1 12/19/17 04:00 97.3 85 20 139/68 98 Room Air 97.3 12/19/17 04:00 63 12/19/17 00:00 75 12/18/17 20:26 82 18 Room Air 21 12/18/17 20:00 82 12/18/17 20:00 98.1 82 20 123/65 95 Room Air 98.1 12/18/17 16:00 97.3 85 20 128/55 98 Room Air 97.3 12/18/17 16:00 86 12/18/17 12:00 83 12/18/17 12:00 97.7 82 20 134/69 97 Room Air 97.7 Height (Feet): 6 Height (Inches): 1.00 Weight (Pounds): 180 General Appearance: cachetic HEENT: mucous membranes moist Respiratory/Chest: other - few rhonchi, O2 by cannula Cardiovascular: normal rate Abdomen: soft, non tender Extremities: no edema Neurologic/Psychiatric: alert, disoriented Microbiology Date/Time Source Procedure Growth Status 12/16/17 14:30 Blood Blood Culture - Preliminary NO GROWTH AFTER 48 HOURS Resulted 12/16/17 14:15 Blood Blood Culture - Preliminary NO GROWTH AFTER 48 HOURS Resulted 12/16/17 14:30 Nasal Nares MRSA Culture - Final NO METHICILLIN RESISTANT STAPH AUREUS... Complete 12/16/17 14:30 Rectum VRE Culture - Final Enterococcus Faecium - Vre Complete Laboratory Tests Test 12/19/17 07:40 White Blood Count 4.3 K/UL (4.8-10.8) L Red Blood Count 3.24 M/UL (4.70-6.10) L Hemoglobin 8.6 G/DL (14.2-18.0) L Hematocrit 27.0 % (42.0-52.0) L Mean Corpuscular Volume 84 FL (80-99) Mean Corpuscular Hemoglobin 26.6 PG (27.0-31.0) L Mean Corpuscular Hemoglobin Concent 31.9 G/DL (32.0-36.0) L Red Cell Distribution Width 15.7 % (11.6-14.8) H Platelet Count 248 K/UL (150-450) Mean Platelet Volume 5.5 FL (6.5-10.1) L Neutrophils (%) (Auto) 76.9 % (45.0-75.0) H Lymphocytes (%) (Auto) 8.7 % (20.0-45.0) L Monocytes (%) (Auto) 13.4 % (1.0-10.0) H Eosinophils (%) (Auto) 0.1 % (0.0-3.0) Basophils (%) (Auto) 1.0 % (0.0-2.0) Sodium Level 138 MMOL/L (136-145) Potassium Level 3.1 MMOL/L (3.5-5.1) L Chloride Level 104 MMOL/L (98-107) Carbon Dioxide Level 25 MMOL/L (21-32) Anion Gap 9 mmol/L (5-15) Blood Urea Nitrogen 22 mg/dL (7-18) H Creatinine 0.8 MG/DL (0.55-1.30) Estimat Glomerular Filtration Rate mL/min (>60) Glucose Level 199 MG/DL (74-106) H Lactic Acid Level 1.40 mmol/L (0.66-2.22) Calcium Level 8.5 MG/DL (8.5-10.1) Total Bilirubin 0.4 MG/DL (0.2-1.0) Aspartate Amino Transf (AST/SGOT) 72 U/L (15-37) H Alanine Aminotransferase (ALT/SGPT) 66 U/L (12-78) Alkaline Phosphatase 170 U/L (46-116) H Total Protein 6.8 G/DL (6.4-8.2) Albumin 2.0 G/DL (3.4-5.0) L Globulin 4.8 g/dL Albumin/Globulin Ratio 0.4 (1.0-2.7) L Current Medications Medications (Trade) Dose Ordered Sig/Iram Route PRN Reason Start Time Stop Time Status Last Admin Dose Admin Acetaminophen (Tylenol) 500 mg Q4H PRN ORAL Mild Pain/Temp > 100.5 12/16/17 20:15 01/15/18 20:14 Acetaminophen (Tylenol) 650 mg Q4H PRN ORAL Fever/Headache/Mild Pain 12/16/17 20:15 01/15/18 20:14 Albuterol/ Ipratropium (Albuterol/ Ipratropium) 3 ml Q4H PRN HHN Shortness of Breath 12/16/17 20:15 12/21/17 20:14 Amlodipine Besylate (Norvasc) 10 mg DAILY ORAL 12/17/17 09:00 01/16/18 08:59 12/19/17 08:43 Aspirin (ASA) 81 mg DAILY ORAL 12/17/17 09:00 01/16/18 08:59 12/19/17 08:43 Cyanocobalamin (Vitamin B12) 100 mcg QHS SUBQ 12/16/17 21:00 01/15/18 20:59 12/18/17 20:54 Docusate Sodium (Colace) 100 mg TWICE A DAY ORAL 12/17/17 09:00 01/16/18 08:59 12/19/17 08:43 Doxazosin Mesylate (Cardura) 1 mg DAILY ORAL 12/17/17 09:00 01/16/18 08:59 12/19/17 08:44 Famotidine (Pepcid) 20 mg DAILY ORAL 12/17/17 09:00 01/16/18 08:59 12/19/17 08:43 Heparin Sodium (Porcine) (Heparin 5000 units/ml) 5,000 units EVERY 12 HOURS SUBQ 12/16/17 22:00 01/15/18 21:59 12/19/17 08:43 Magnesium Hydroxide (Mom) 30 ml DAILY ORAL 12/17/17 09:00 01/16/18 08:59 12/19/17 08:43 Multivitamins Therapeutic (Therapeutic Multivitamin) 1 ea DAILY ORAL 12/17/17 09:00 01/16/18 08:59 12/19/17 08:43 Ondansetron HCl (Zofran) 4 mg Q6H PRN IVP Nausea & Vomiting 5/14/18 20:15 01/15/18 20:14 Piperacillin Sod/ Tazobactam Sod 3.375 gm/Dextrose 110 ml @ 27.5 mls/hr EVERY 8 HOURS IVPB 12/16/17 22:00 12/21/17 21:59 12/19/17 06:00 Tamsulosin HCl (Flomax) 0.4 mg BEDTIME ORAL 12/16/17 21:00 01/15/18 20:59 12/18/17 20:54 Vancomycin HCl (Vanco rx to dose) 1 ea DAILY PRN MISC Per rx protocol 12/16/17 20:15 01/15/18 20:14 Vancomycin HCl 1 gm/Dextrose 275 ml @ 183.708 mls/hr Q12H IVPB 12/18/17 18:00 12/23/17 17:59 12/19/17 06:00 STEFANI CONLEY December 19, 2017 10:42
[2017-12-19 12:00] VITALS: BP 120/64
[2017-12-19 16:00] VITALS: BP 126/59
--- NOTE | 2017-12-19 17:16 | General Progress Note ---
Assessment/Plan Assessment/Plan Assessment - Transient N/V with resultant aspiration - abnormal LFT - OBS - HTN - CVA - dysphagia, PEG Recommendations - continue TF trial - check hepatitis serologies -- negative - Hold statin and re check LFT - follow labs Subjective Allergies: Coded Allergies: No Known Allergies (Unverified , 01/27/17) Subjective above noted NAD d/w RN tolerating TF no vomiting reported Objective Last 24 Hour Vital Signs Date Time Temp Pulse Resp B/P (MAP) Pulse Ox O2 Delivery O2 Flow Rate FiO2 12/19/17 12:00 98.0 89 19 120/64 97 Room Air 98.0 12/19/17 08:43 83 147/68 12/19/17 08:00 98.1 83 19 147/68 97 Room Air 98.1 12/19/17 08:00 81 12/19/17 04:00 97.3 85 20 139/68 98 Room Air 97.3 12/19/17 04:00 63 12/19/17 00:00 75 12/18/17 20:26 82 18 Room Air 21 12/18/17 20:00 82 12/18/17 20:00 98.1 82 20 123/65 95 Room Air 98.1 Intake and Output 12/18/17 12/19/17 19:00 07:00 # Voids 2 3 # Bowel Movements 1 Laboratory Tests 12/19/17 07:40: White Blood Count 4.3L, Red Blood Count 3.24L, Hemoglobin 8.6L, Hematocrit 27.0L , Mean Corpuscular Volume 84, Mean Corpuscular Hemoglobin 26.6L, Mean Corpuscular Hemoglobin Concent 31.9L, Red Cell Distribution Width 15.7H, Platelet Count 248, Mean Platelet Volume 5.5L, Neutrophils (%) (Auto) 76.9H, Lymphocytes (%) (Auto) 8.7L, Monocytes (%) (Auto) 13.4H, Eosinophils (%) (Auto) 0.1, Basophils (%) (Auto) 1.0, Sodium Level 138, Potassium Level 3.1L, Chloride Level 104, Carbon Dioxide Level 25, Anion Gap 9, Blood Urea Nitrogen 22H, Creatinine 0.8, Estimat Glomerular Filtration Rate , Glucose Level 199H, Lactic Acid Level 1.40, Calcium Level 8.5, Total Bilirubin 0.4, Aspartate Amino Transf (AST/SGOT) 72H, Alanine Aminotransferase (ALT/SGPT) 66, Alkaline Phosphatase 170H, Total Protein 6.8, Albumin 2.0L, Globulin 4.8, Albumin/Globulin Ratio 0.4L Height (Feet): 6 Height (Inches): 1.00 Weight (Pounds): 180 Objective WDWN NCAT supple Chest Occ Ronchi RRR abd soft ND NT, GT OK no edema OBS Oli Amaya MD December 19, 2017 17:16
--- NOTE | 2017-12-19 17:36 | Pulmonology Progress Note ---
Assessment/Plan Assessment/Plan IMPRESSION: 1. Evidence of pneumonia, possible aspiration. 2. Nausea. 3. Vomiting. 4. Hyperlipidemia. 5. Cerebrovascular accident. PLAN continue same as is CT with possible infiltrates respiratory care iv antibiotics as is expect a lag in imaging resolution oxygen not needed gt feeds aspiration precautions impression, plan, and exam edited and reviewed in detail care discussed with RN Subjective ROS Limited/Unobtainable: Yes Allergies: Coded Allergies: No Known Allergies (Unverified , 01/27/17) Subjective awake no distress confused at baseline Objective Last 24 Hour Vital Signs Date Time Temp Pulse Resp B/P (MAP) Pulse Ox O2 Delivery O2 Flow Rate FiO2 12/19/17 12:00 98.0 89 19 120/64 97 Room Air 98.0 12/19/17 08:43 83 147/68 12/19/17 08:00 98.1 83 19 147/68 97 Room Air 98.1 12/19/17 08:00 81 12/19/17 04:00 97.3 85 20 139/68 98 Room Air 97.3 12/19/17 04:00 63 12/19/17 00:00 75 12/18/17 20:26 82 18 Room Air 21 12/18/17 20:00 82 12/18/17 20:00 98.1 82 20 123/65 95 Room Air 98.1 Intake and Output 12/18/17 12/19/17 19:00 07:00 # Voids 2 3 # Bowel Movements 1 Objective GENERAL: A well-developed male, NAD HEENT: Negative. Extraocular movements are intact. Oropharynx is moist. NECK: Supple. No adenopathy. LUNGS: Moderate breath sounds. No rhonchi or wheezes. SAME CARDIAC: Normal S1, S2. Regular rate and rhythm without murmurs, rubs, or gallops. ABDOMEN: Soft, nontender, and nondistended. EXTREMITIES: No cyanosis, clubbing, or edema. NEUROLOGICAL: Grossly nonfocal and confused. Laboratory Tests 12/19/17 07:40: White Blood Count 4.3L, Red Blood Count 3.24L, Hemoglobin 8.6L, Hematocrit 27.0L , Mean Corpuscular Volume 84, Mean Corpuscular Hemoglobin 26.6L, Mean Corpuscular Hemoglobin Concent 31.9L, Red Cell Distribution Width 15.7H, Platelet Count 248, Mean Platelet Volume 5.5L, Neutrophils (%) (Auto) 76.9H, Lymphocytes (%) (Auto) 8.7L, Monocytes (%) (Auto) 13.4H, Eosinophils (%) (Auto) 0.1, Basophils (%) (Auto) 1.0, Sodium Level 138, Potassium Level 3.1L, Chloride Level 104, Carbon Dioxide Level 25, Anion Gap 9, Blood Urea Nitrogen 22H, Creatinine 0.8, Estimat Glomerular Filtration Rate , Glucose Level 199H, Lactic Acid Level 1.40, Calcium Level 8.5, Total Bilirubin 0.4, Aspartate Amino Transf (AST/SGOT) 72H, Alanine Aminotransferase (ALT/SGPT) 66, Alkaline Phosphatase 170H, Total Protein 6.8, Albumin 2.0L, Globulin 4.8, Albumin/Globulin Ratio 0.4L Current Medications Medications (Trade) Dose Ordered Sig/Iram Route PRN Reason Start Time Stop Time Status Last Admin Dose Admin Acetaminophen (Tylenol) 500 mg Q4H PRN ORAL Mild Pain/Temp > 100.5 12/16/17 20:15 01/15/18 20:14 Acetaminophen (Tylenol) 650 mg Q4H PRN ORAL Fever/Headache/Mild Pain 12/16/17 20:15 01/15/18 20:14 12/19/17 11:37 Albuterol/ Ipratropium (Albuterol/ Ipratropium) 3 ml Q4H PRN HHN Shortness of Breath 12/16/17 20:15 12/21/17 20:14 Amlodipine Besylate (Norvasc) 10 mg DAILY ORAL 12/17/17 09:00 01/16/18 08:59 12/19/17 08:43 Aspirin (ASA) 81 mg DAILY ORAL 12/17/17 09:00 01/16/18 08:59 12/19/17 08:43 Cyanocobalamin (Vitamin B12) 100 mcg QHS SUBQ 12/16/17 21:00 01/15/18 20:59 12/18/17 20:54 Docusate Sodium (Colace) 100 mg TWICE A DAY ORAL 12/17/17 09:00 01/16/18 08:59 12/19/17 08:43 Doxazosin Mesylate (Cardura) 1 mg DAILY ORAL 12/17/17 09:00 01/16/18 08:59 12/19/17 08:44 Famotidine (Pepcid) 20 mg DAILY ORAL 12/17/17 09:00 01/16/18 08:59 12/19/17 08:43 Heparin Sodium (Porcine) (Heparin 5000 units/ml) 5,000 units EVERY 12 HOURS SUBQ 12/16/17 22:00 01/15/18 21:59 12/19/17 08:43 Magnesium Hydroxide (Mom) 30 ml DAILY ORAL 12/17/17 09:00 01/16/18 08:59 12/19/17 08:43 Multivitamins Therapeutic (Therapeutic Multivitamin) 1 ea DAILY ORAL 12/17/17 09:00 01/16/18 08:59 12/19/17 08:43 Ondansetron HCl (Zofran) 4 mg Q6H PRN IVP Nausea & Vomiting 12/16/17 20:15 01/15/18 20:14 Piperacillin Sod/ Tazobactam Sod 3.375 gm/Dextrose 110 ml @ 27.5 mls/hr EVERY 8 HOURS IVPB 12/16/17 22:00 12/21/17 21:59 12/19/17 14:16 Tamsulosin HCl (Flomax) 0.4 mg BEDTIME ORAL 12/16/17 21:00 01/15/18 20:59 12/18/17 20:54 Vancomycin HCl (Vanco rx to dose) 1 ea DAILY PRN MISC Per rx protocol 12/16/17 20:15 01/15/18 20:14 Vancomycin HCl 1 gm/Dextrose 275 ml @ 183.708 mls/hr Q12H IVPB 12/18/17 18:00 12/23/17 17:59 12/19/17 06:00 Nakul Cisse MD December 19, 2017 17:36
[2017-12-19 20:00] VITALS: BP 121/60
[2017-12-19] MEDS: Tamsulosin 0.4mg cap ORAL SCH (23:13)
[2017-12-19] MEDS: Vitamin B12 1000mcg/ml Inj SUBQ SCH (23:14)
[2017-12-20] VITALS: BP 139/76
[2017-12-20 04:00] VITALS: BP 134/80
[2017-12-20] MEDS: Piperacillin/Tazobactam 3.375 GM in D5W 110 ML IVPB SCH ×3 (06:00→23:20)
[2017-12-20] MEDS: Vancomycin 1gm/D5W 275ml IVPB SCH ×2 (06:00)
[2017-12-20 08:00] VITALS: BP 134/73
[2017-12-20] MEDS: Heparin 5000 units/ml inj SUBQ SCH (08:22)
[2017-12-20] MEDS: Docusate 100mg/10ml Liq NG SCH ×2 (08:23→17:23)
[2017-12-20] MEDS: Doxazosin 1mg Tab ORAL SCH (08:24)
[2017-12-20] MEDS: Milk of Magnesia 30ml Ud ORAL SCH (08:24)
[2017-12-20] MEDS: Multivitamin w/Minerals tab ORAL SCH (08:24)
[2017-12-20] MEDS: Aspirin Baby 81mg ORAL SCH (08:24)
--- NOTE | 2017-12-20 08:48 | Pulmonology Progress Note ---
Assessment/Plan Assessment/Plan IMPRESSION: 1. Evidence of pneumonia, possible aspiration. 2. Nausea. 3. Vomiting. 4. Hyperlipidemia. 5. Cerebrovascular accident. PLAN continue same as is CT with possible infiltrates respiratory care iv antibiotics as is expect a lag in imaging resolution oxygen not needed gt feeds aspiration precautions impression, plan, and exam edited and reviewed in detail care discussed with RN Subjective ROS Limited/Unobtainable: Yes Allergies: Coded Allergies: No Known Allergies (Unverified , 01/27/17) Subjective awake as prior no distress confused at baseline Objective Last 24 Hour Vital Signs Date Time Temp Pulse Resp B/P (MAP) Pulse Ox O2 Delivery O2 Flow Rate FiO2 12/20/17 08:24 94 134/73 12/20/17 08:09 82 18 Nasal Cannula 2.0 28 12/20/17 04:00 96.9 79 19 134/80 99 Nasal Cannula 96.9 12/20/17 04:00 102 12/20/17 00:00 97.7 87 20 139/76 98 Nasal Cannula 97.7 12/20/17 00:00 76 12/19/17 21:02 77 18 Room Air 21 12/19/17 20:00 87 12/19/17 20:00 98.2 90 19 121/60 96 Room Air 98.2 12/19/17 16:00 81 12/19/17 16:00 98.0 83 19 126/59 99 Room Air 98.0 12/19/17 12:00 86 12/19/17 12:00 98.0 89 19 120/64 97 Room Air 98.0 Intake and Output 12/19/17 12/20/17 19:00 07:00 Intake Total 110.0 ml 183.708 ml Output Total 150 ml 300 ml Balance -40.0 ml -116.292 ml IV Total 110.0 ml 183.708 ml Output Urine Total 150 ml 300 ml # Voids 2 Objective GENERAL: A well-developed male, NAD HEENT: Negative. Extraocular movements are intact. Oropharynx is moist. NECK: Supple. No adenopathy. LUNGS: Moderate breath sounds. No rhonchi or wheezes. SAME CARDIAC: Normal S1, S2. Regular rate and rhythm without murmurs, rubs, or gallops. ABDOMEN: Soft, nontender, and nondistended. EXTREMITIES: No cyanosis, clubbing, or edema. NEUROLOGICAL: Grossly nonfocal and confused. reviewed and edited Microbiology Date/Time Source Procedure Growth Status 12/18/17 15:00 Sputum Gram Stain - Final Resulted 12/18/17 15:00 Sputum Culture - Preliminary Gram Negative Bacillus 1 Gram Negative Bacillus 2 Usual Respiratory Jes Resulted Laboratory Tests 12/20/17 07:35: Sodium Level [Pending], Potassium Level [Pending], Chloride Level [Pending], Carbon Dioxide Level [Pending], Blood Urea Nitrogen [Pending], Creatinine [ Pending], Estimat Glomerular Filtration Rate [Pending], Glucose Level [Pending] , Calcium Level [Pending], Total Bilirubin [Pending], Aspartate Amino Transf ( AST/SGOT) [Pending], Alanine Aminotransferase (ALT/SGPT) [Pending], Alkaline Phosphatase [Pending], Total Protein [Pending], Albumin [Pending], Globulin [ Pending] Current Medications Medications (Trade) Dose Ordered Sig/Iram Route PRN Reason Start Time Stop Time Status Last Admin Dose Admin Acetaminophen (Tylenol) 500 mg Q4H PRN ORAL Mild Pain/Temp > 100.5 12/16/17 20:15 01/15/18 20:14 Acetaminophen (Tylenol) 650 mg Q4H PRN ORAL Fever/Headache/Mild Pain 12/16/17 20:15 01/15/18 20:14 12/19/17 18:39 Albuterol/ Ipratropium (Albuterol/ Ipratropium) 3 ml Q4H PRN HHN Shortness of Breath 12/16/17 20:15 12/21/17 20:14 Amlodipine Besylate (Norvasc) 10 mg DAILY ORAL 12/17/17 09:00 01/16/18 08:59 12/20/17 08:24 Aspirin (ASA) 81 mg DAILY ORAL 12/17/17 09:00 01/16/18 08:59 12/20/17 08:24 Cyanocobalamin (Vitamin B12) 100 mcg QHS SUBQ 12/16/17 21:00 01/15/18 20:59 12/19/17 23:14 Docusate Sodium (Colace) 250 mg TWICE A DAY NG 12/20/17 09:00 01/19/18 08:59 12/20/17 08:23 Doxazosin Mesylate (Cardura) 1 mg DAILY ORAL 12/17/17 09:00 01/16/18 08:59 12/20/17 08:24 Famotidine (Pepcid) 20 mg DAILY ORAL 12/17/17 09:00 01/16/18 08:59 12/20/17 08:24 Heparin Sodium (Porcine) (Heparin 5000 units/ml) 5,000 units EVERY 12 HOURS SUBQ 12/16/17 22:00 01/15/18 21:59 12/20/17 08:22 Magnesium Hydroxide (Mom) 30 ml DAILY ORAL 12/17/17 09:00 01/16/18 08:59 12/20/17 08:24 Multivitamins Therapeutic (Therapeutic Multivitamin) 1 ea DAILY ORAL 12/17/17 09:00 01/16/18 08:59 12/20/17 08:24 Ondansetron HCl (Zofran) 4 mg Q6H PRN IVP Nausea & Vomiting 12/16/17 20:15 01/15/18 20:14 Piperacillin Sod/ Tazobactam Sod 3.375 gm/Dextrose 110 ml @ 27.5 mls/hr EVERY 8 HOURS IVPB 12/16/17 22:00 12/21/17 21:59 12/20/17 06:00 Tamsulosin HCl (Flomax) 0.4 mg BEDTIME ORAL 12/16/17 21:00 01/15/18 20:59 12/19/17 23:13 Vancomycin HCl (Vanco rx to dose) 1 ea DAILY PRN MISC Per rx protocol 12/16/17 20:15 01/15/18 20:14 Vancomycin HCl 1 gm/Dextrose 275 ml @ 183.708 mls/hr Q12H IVPB 12/18/17 18:00 12/23/17 17:59 12/20/17 06:00 Nakul Cisse MD December 20, 2017 08:48
[2017-12-20 09:36] LABS: ALANINE AMINOTRANSFERASE 74 U/L (12-78); ALBUMIN 2.1 G/DL (3.4-5.0); ALBUMIN/GLOBULIN RATIO 0.4 (1.0-2.7); ALKALINE PHOSPHATASE 177 U/L (46-116); ANION GAP 8 mmol/L (5-15); ASPARTATE AMINO TRANSFERASE 74 U/L (15-37); BILIRUBIN,TOTAL 0.4 MG/DL (0.2-1.0); BLOOD UREA NITROGEN 20 mg/dL (7-18); CALCIUM 8.5 MG/DL (8.5-10.1); CARBON DIOXIDE 26 MMOL/L (21-32); CHLORIDE 102 MMOL/L (98-107); CREATININE 0.8 MG/DL (0.55-1.30); POTASSIUM 3.3 MMOL/L (3.5-5.1); SODIUM 136 MMOL/L (136-145)
--- NOTE | 2017-12-20 09:40 | General Progress Note ---
Assessment/Plan Problem List: (1) HTN (hypertension) ICD Codes: I10 - Essential (primary) hypertension SNOMED: 79341135 (2) BPH (benign prostatic hyperplasia) ICD Codes: N40.0 - Benign prostatic hyperplasia without lower urinary tract symptoms SNOMED: 277896917, 342811910 (3) Hyperlipidemia ICD Codes: E78.5 - Hyperlipidemia, unspecified SNOMED: 97577352 (4) Dementia ICD Codes: F03.90 - Unspecified dementia without behavioral disturbance SNOMED: 02379287 (5) Probable sepsis ICD Codes: A41.9 - Sepsis, unspecified organism SNOMED: 460883341 (6) Encephalopathy ICD Codes: G93.40 - Encephalopathy, unspecified SNOMED: 15595605 (7) Pneumonia ICD Codes: J18.9 - Pneumonia, unspecified organism SNOMED: 798167820 Status: stable Assessment/Plan iv abx follow up cultures gt feeds monitor 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 w/o complaints. no fever or chills. mild cough and congestion. still weak and withdrawn Objective Last 24 Hour Vital Signs Date Time Temp Pulse Resp B/P (MAP) Pulse Ox O2 Delivery O2 Flow Rate FiO2 12/20/17 08:24 94 134/73 12/20/17 08:09 82 18 Nasal Cannula 2.0 28 12/20/17 04:00 96.9 79 19 134/80 99 Nasal Cannula 96.9 12/20/17 04:00 102 12/20/17 00:00 97.7 87 20 139/76 98 Nasal Cannula 97.7 12/20/17 00:00 76 12/19/17 21:02 77 18 Room Air 21 12/19/17 20:00 87 12/19/17 20:00 98.2 90 19 121/60 96 Room Air 98.2 12/19/17 16:00 81 12/19/17 16:00 98.0 83 19 126/59 99 Room Air 98.0 12/19/17 12:00 86 12/19/17 12:00 98.0 89 19 120/64 97 Room Air 98.0 Intake and Output 12/19/17 12/20/17 19:00 07:00 Intake Total 110.0 ml 183.708 ml Output Total 150 ml 300 ml Balance -40.0 ml -116.292 ml IV Total 110.0 ml 183.708 ml Output Urine Total 150 ml 300 ml # Voids 2 Laboratory Tests 12/20/17 07:35: Sodium Level [Pending], Potassium Level [Pending], Chloride Level [Pending], Carbon Dioxide Level [Pending], Blood Urea Nitrogen [Pending], Creatinine [ Pending], Estimat Glomerular Filtration Rate [Pending], Glucose Level [Pending] , Calcium Level [Pending], Total Bilirubin [Pending], Aspartate Amino Transf ( AST/SGOT) [Pending], Alanine Aminotransferase (ALT/SGPT) [Pending], Alkaline Phosphatase [Pending], Total Protein [Pending], Albumin [Pending], Globulin [ Pending] Height (Feet): 6 Height (Inches): 1.00 Weight (Pounds): 180 Objective General Appearance: WD/WN, alert Neck: supple Cardiovascular: regular rhythm Respiratory/Chest: lungs clear, normal breath sounds Abdomen: normal bowel sounds, non tender, soft Edema: no edema noted Arm (L), no edema noted Arm (R), no edema noted Leg (L), no edema noted Leg (R), no edema noted Pedal (L), no edema noted Pedal (R), no edema noted Generalized PUJA OLIVA December 20, 2017 09:40
--- NOTE | 2017-12-20 10:42 | Infectious Diseases Prog Note ---
Assessment/Plan Assessment/Plan antibiotics : vancomycin iv, zosyn A 1. gram negative pneumonia 2. respiratory failure 3. hypertension 4. rectal VRE colonization P 1. continue zosyn 2. d/c iv vancomycin 3. will follow up cultures Subjective ROS Limited/Unobtainable: Yes Allergies: Coded Allergies: No Known Allergies (Unverified , 01/27/17) Objective Vital Signs Last 24 Hour Vital Signs Date Time Temp Pulse Resp B/P (MAP) Pulse Ox O2 Delivery O2 Flow Rate FiO2 12/20/17 08:24 94 134/73 12/20/17 08:09 82 18 Nasal Cannula 2.0 28 12/20/17 08:00 99.1 94 19 134/73 97 Nasal Cannula 99.1 12/20/17 04:00 96.9 79 19 134/80 99 Nasal Cannula 96.9 12/20/17 04:00 102 12/20/17 00:00 97.7 87 20 139/76 98 Nasal Cannula 97.7 12/20/17 00:00 76 12/19/17 21:02 77 18 Room Air 21 12/19/17 20:00 87 12/19/17 20:00 98.2 90 19 121/60 96 Room Air 98.2 12/19/17 16:00 81 12/19/17 16:00 98.0 83 19 126/59 99 Room Air 98.0 12/19/17 12:00 86 12/19/17 12:00 98.0 89 19 120/64 97 Room Air 98.0 Height (Feet): 6 Height (Inches): 1.00 Weight (Pounds): 180 Respiratory/Chest: lungs clear Cardiovascular: normal rate, regular rhythm, no gallop/murmur Abdomen: soft, non tender, other - GT Extremities: no edema Microbiology Date/Time Source Procedure Growth Status 12/18/17 15:00 Sputum Gram Stain - Final Resulted 12/18/17 15:00 Sputum Culture - Preliminary Gram Negative Bacillus 1 Gram Negative Bacillus 2 Usual Respiratory Jes Resulted Laboratory Tests Test 12/20/17 07:35 Sodium Level 136 MMOL/L (136-145) Potassium Level 3.3 MMOL/L (3.5-5.1) L Chloride Level 102 MMOL/L (98-107) Carbon Dioxide Level 26 MMOL/L (21-32) Anion Gap 8 mmol/L (5-15) Blood Urea Nitrogen 20 mg/dL (7-18) H Creatinine 0.8 MG/DL (0.55-1.30) Estimat Glomerular Filtration Rate mL/min (>60) Glucose Level 156 MG/DL (74-106) H Calcium Level 8.5 MG/DL (8.5-10.1) Total Bilirubin 0.4 MG/DL (0.2-1.0) Aspartate Amino Transf (AST/SGOT) 74 U/L (15-37) H Alanine Aminotransferase (ALT/SGPT) 74 U/L (12-78) Alkaline Phosphatase 177 U/L (46-116) H Total Protein 7.0 G/DL (6.4-8.2) Albumin 2.1 G/DL (3.4-5.0) L Globulin 4.9 g/dL Albumin/Globulin Ratio 0.4 (1.0-2.7) L Current Medications Medications (Trade) Dose Ordered Sig/Iram Route PRN Reason Start Time Stop Time Status Last Admin Dose Admin Acetaminophen (Tylenol) 500 mg Q4H PRN ORAL Mild Pain/Temp > 100.5 12/16/17 20:15 01/15/18 20:14 Acetaminophen (Tylenol) 650 mg Q4H PRN ORAL Fever/Headache/Mild Pain 12/16/17 20:15 01/15/18 20:14 12/20/17 10:17 Albuterol/ Ipratropium (Albuterol/ Ipratropium) 3 ml Q4H PRN HHN Shortness of Breath 12/16/17 20:15 12/21/17 20:14 Amlodipine Besylate (Norvasc) 10 mg DAILY ORAL 12/17/17 09:00 01/16/18 08:59 12/20/17 08:24 Aspirin (ASA) 81 mg DAILY ORAL 12/17/17 09:00 01/16/18 08:59 12/20/17 08:24 Cyanocobalamin (Vitamin B12) 100 mcg QHS SUBQ 12/16/17 21:00 01/15/18 20:59 12/19/17 23:14 Docusate Sodium (Colace) 250 mg TWICE A DAY NG 12/20/17 09:00 01/19/18 08:59 12/20/17 08:23 Doxazosin Mesylate (Cardura) 1 mg DAILY ORAL 12/17/17 09:00 01/16/18 08:59 12/20/17 08:24 Famotidine (Pepcid) 20 mg DAILY ORAL 12/17/17 09:00 01/16/18 08:59 12/20/17 08:24 Heparin Sodium (Porcine) (Heparin 5000 units/ml) 5,000 units EVERY 12 HOURS SUBQ 12/16/17 22:00 01/15/18 21:59 12/20/17 08:22 Magnesium Hydroxide (Mom) 30 ml DAILY ORAL 12/17/17 09:00 01/16/18 08:59 12/20/17 08:24 Multivitamins Therapeutic (Therapeutic Multivitamin) 1 ea DAILY ORAL 12/17/17 09:00 01/16/18 08:59 12/20/17 08:24 Ondansetron HCl (Zofran) 4 mg Q6H PRN IVP Nausea & Vomiting 12/16/17 20:15 01/15/18 20:14 Piperacillin Sod/ Tazobactam Sod 3.375 gm/Dextrose 110 ml @ 27.5 mls/hr EVERY 8 HOURS IVPB 12/16/17 22:00 12/21/17 21:59 12/20/17 06:00 Tamsulosin HCl (Flomax) 0.4 mg BEDTIME ORAL 12/16/17 21:00 01/15/18 20:59 12/19/17 23:13 Vancomycin HCl (Vanco rx to dose) 1 ea DAILY PRN MISC Per rx protocol 12/16/17 20:15 01/15/18 20:14 Vancomycin HCl 1 gm/Dextrose 275 ml @ 183.708 mls/hr Q12H IVPB 12/18/17 18:00 12/23/17 17:59 12/20/17 06:00 RENÉE RICHARDSON December 20, 2017 10:42
--- NOTE | 2017-12-20 11:52 | Diagnostic Imaging Report ---
Indication: Cough Technique: One view of the chest Comparison: 12/16/2017 Findings: Nodular opacities at the right midlung and lung base appear unchanged from the previous study. No new infiltrates. No effusions. Normal heart size. Tortuous calcite aorta. There are degenerative thoracic spondylosis changes Impression: Unchanged right mid and lower lung nodular infiltrates, over 4 days
[2017-12-20 12:00] VITALS: BP 111/56
[2017-12-20 16:00] VITALS: BP 118/70
--- NOTE | 2017-12-20 17:58 | General Progress Note ---
Assessment/Plan Assessment/Plan Assessment - Transient N/V with resultant aspiration - abnormal LFT - OBS - HTN - CVA - dysphagia, PEG - pneumobilia and s/p poonam on CT Recommendations - continue TF trial - check hepatitis serologies -- negative - Hold statin and re check LFT - follow labs - CT noted. Will order MRCP for Saturday Subjective Allergies: Coded Allergies: No Known Allergies (Unverified , 01/27/17) Subjective above noted NAD d/w RN tolerating TF no vomiting reported Objective Last 24 Hour Vital Signs Date Time Temp Pulse Resp B/P (MAP) Pulse Ox O2 Delivery O2 Flow Rate FiO2 12/20/17 16:00 98.1 100 18 118/70 97 Room Air 98.1 12/20/17 16:00 95 12/20/17 12:00 95 12/20/17 12:00 98.5 98 19 111/56 96 Room Air 98.5 12/20/17 08:24 94 134/73 12/20/17 08:09 82 18 Nasal Cannula 2.0 28 12/20/17 08:00 99.1 94 19 134/73 97 Nasal Cannula 99.1 12/20/17 08:00 95 12/20/17 04:00 96.9 79 19 134/80 99 Nasal Cannula 96.9 12/20/17 04:00 102 12/20/17 00:00 97.7 87 20 139/76 98 Nasal Cannula 97.7 12/20/17 00:00 76 12/19/17 21:02 77 18 Room Air 21 12/19/17 20:00 87 12/19/17 20:00 98.2 90 19 121/60 96 Room Air 98.2 Intake and Output 12/19/17 12/20/17 19:00 07:00 Intake Total 110.0 ml 183.708 ml Output Total 150 ml 300 ml Balance -40.0 ml -116.292 ml IV Total 110.0 ml 183.708 ml Output Urine Total 150 ml 300 ml # Voids 2 Laboratory Tests 12/20/17 07:35: Sodium Level 136, Potassium Level 3.3L, Chloride Level 102, Carbon Dioxide Level 26, Anion Gap 8, Blood Urea Nitrogen 20H, Creatinine 0.8, Estimat Glomerular Filtration Rate , Glucose Level 156H, Calcium Level 8.5, Total Bilirubin 0.4, Aspartate Amino Transf (AST/SGOT) 74H, Alanine Aminotransferase ( ALT/SGPT) 74, Alkaline Phosphatase 177H, Total Protein 7.0, Albumin 2.1L, Globulin 4.9, Albumin/Globulin Ratio 0.4L Height (Feet): 6 Height (Inches): 1.00 Weight (Pounds): 180 Objective WDWN NCAT supple Chest Occ Ronchi RRR abd soft ND NT, GT OK no edema OBS Oli Amaya MD December 20, 2017 17:58
[2017-12-20 20:00] VITALS: BP 94/64
[2017-12-20] MEDS: Tamsulosin 0.4mg cap ORAL SCH (23:16)
[2017-12-20] MEDS: Vitamin B12 1000mcg/ml Inj SUBQ SCH (23:17)
[2017-12-21] VITALS: BP 103/68
[2017-12-21 04:00] VITALS: BP 133/61
[2017-12-21] MEDS: Piperacillin/Tazobactam 3.375 GM in D5W 110 ML IVPB SCH (06:15)
[2017-12-21 08:00] VITALS: BP 127/67
[2017-12-21 08:15] LABS: BASOPHILS % (AUTO) 0.5 % (0.0-2.0); EOSINOPHILS % (AUTO) 0.1 % (0.0-3.0); HEMOGLOBIN 9.2 G/DL (14.2-18.0); LYMPHOCYTES % (AUTO) 11.6 % (20.0-45.0); MEAN CORPUSCULAR VOLUME 82 FL (80-99); MONOCYTES % (AUTO) 19.5 % (1.0-10.0); NEUTROPHILS % (AUTO) 68.4 % (45.0-75.0); PLATELET COUNT 288 K/UL (150-450); RED BLOOD COUNT 3.41 M/UL (4.70-6.10); RED CELL DISTRIBUTION WIDTH 15.8 % (11.6-14.8)
[2017-12-21] MEDS: Doxazosin 1mg Tab ORAL SCH (08:24)
[2017-12-21] MEDS: Multivitamin w/Minerals tab ORAL SCH (08:25)
[2017-12-21] MEDS: Docusate 100mg/10ml Liq NG SCH ×2 (08:26→17:22)
[2017-12-21] MEDS: Milk of Magnesia 30ml Ud ORAL SCH (08:26)
--- NOTE | 2017-12-21 08:26 | General Progress Note ---
Assessment/Plan Problem List: (1) HTN (hypertension) ICD Codes: I10 - Essential (primary) hypertension SNOMED: 18131842 (2) BPH (benign prostatic hyperplasia) ICD Codes: N40.0 - Benign prostatic hyperplasia without lower urinary tract symptoms SNOMED: 985666168, 724743056 (3) Hyperlipidemia ICD Codes: E78.5 - Hyperlipidemia, unspecified SNOMED: 51772561 (4) Dementia ICD Codes: F03.90 - Unspecified dementia without behavioral disturbance SNOMED: 17335846 (5) Probable sepsis ICD Codes: A41.9 - Sepsis, unspecified organism SNOMED: 035611575 (6) Encephalopathy ICD Codes: G93.40 - Encephalopathy, unspecified SNOMED: 80558271 (7) Pneumonia ICD Codes: J18.9 - Pneumonia, unspecified organism SNOMED: 606726636 Status: stable, progressing Assessment/Plan iv abx follow up cultures gt feeds monitor 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 remains more confused than baseline. cxr yesterday with no improvement in betsy infil. low grade fever last night Objective Last 24 Hour Vital Signs Date Time Temp Pulse Resp B/P (MAP) Pulse Ox O2 Delivery O2 Flow Rate FiO2 12/21/17 07:53 97 20 Room Air 21 12/21/17 04:00 98 12/21/17 04:00 99.3 103 20 133/61 100 Room Air 99.3 12/21/17 00:00 98.1 100 20 103/68 96 Room Air 98.1 12/21/17 00:00 104 12/20/17 20:00 84 12/20/17 20:00 98.1 100 20 94/64 97 Room Air 98.1 96 12/20/17 19:55 87 18 Room Air 21 12/20/17 16:00 98.1 100 18 118/70 97 Room Air 98.1 12/20/17 16:00 95 12/20/17 12:00 95 12/20/17 12:00 98.5 98 19 111/56 96 Room Air 98.5 12/20/17 08:24 94 134/73 Intake and Output 12/20/17 12/21/17 19:00 07:00 Intake Total 172.0 ml 874.0 ml Output Total 500 ml Balance -328.0 ml 874.0 ml IV Total 110.0 ml 130.0 ml Tube Feeding 62 ml 744 ml Output Urine Total 500 ml # Voids 3 3 Laboratory Tests 12/21/17 07:35: White Blood Count 4.0L, Red Blood Count 3.41L, Hemoglobin 9.2L, Hematocrit 28.0L , Mean Corpuscular Volume 82, Mean Corpuscular Hemoglobin 26.9L, Mean Corpuscular Hemoglobin Concent 32.7, Red Cell Distribution Width 15.8H, Platelet Count 288, Mean Platelet Volume 5.4L, Neutrophils (%) (Auto) 68.4, Lymphocytes (%) (Auto) 11.6L, Monocytes (%) (Auto) 19.5H, Eosinophils (%) (Auto ) 0.1, Basophils (%) (Auto) 0.5 Height (Feet): 6 Height (Inches): 1.00 Weight (Pounds): 180 Objective General Appearance: WD/WN, alert Neck: supple Cardiovascular: regular rhythm Respiratory/Chest: lungs clear, normal breath sounds Abdomen: normal bowel sounds, non tender, soft Edema: no edema noted Arm (L), no edema noted Arm (R), no edema noted Leg (L), no edema noted Leg (R), no edema noted Pedal (L), no edema noted Pedal (R), no edema noted Generalized PUJA OLIVA December 21, 2017 08:26
[2017-12-21] MEDS ORDERED: Meropenem 500 MG in NS 110 ML IVPB SCH (09:30)
[2017-12-21] MEDS: Meropenem 1gm/NS 110ml IVPB SCH ×6 (09:34→22:20)
--- NOTE | 2017-12-21 10:19 | Pulmonology Progress Note ---
Assessment/Plan Assessment/Plan IMPRESSION: 1. Evidence of pneumonia, possible aspiration. 2. Nausea. 3. Vomiting. 4. Hyperlipidemia. 5. Cerebrovascular accident. PLAN continue same as is CT with possible infiltrates respiratory care iv antibiotics as is cxr reviewed monitor clinically\ consider dedicated CT chest expect a lag in imaging resolution oxygen not needed gt feeds aspiration precautions impression, plan, and exam edited and reviewed in detail care discussed with RN Subjective Allergies: Coded Allergies: No Known Allergies (Unverified , 01/27/17) Subjective awake as prior and stable no distress confused at baseline Objective Last 24 Hour Vital Signs Date Time Temp Pulse Resp B/P (MAP) Pulse Ox O2 Delivery O2 Flow Rate FiO2 12/21/17 08:25 87 127/67 12/21/17 08:00 99.5 87 20 127/67 97 Room Air 99.5 12/21/17 07:53 97 20 Room Air 21 12/21/17 04:00 98 12/21/17 04:00 99.3 103 20 133/61 100 Room Air 99.3 12/21/17 00:00 98.1 100 20 103/68 96 Room Air 98.1 12/21/17 00:00 104 12/20/17 20:00 84 12/20/17 20:00 98.1 100 20 94/64 97 Room Air 98.1 96 12/20/17 19:55 87 18 Room Air 21 12/20/17 16:00 98.1 100 18 118/70 97 Room Air 98.1 12/20/17 16:00 95 12/20/17 12:00 95 12/20/17 12:00 98.5 98 19 111/56 96 Room Air 98.5 Intake and Output 12/20/17 12/21/17 19:00 07:00 Intake Total 172.0 ml 874.0 ml Output Total 500 ml Balance -328.0 ml 874.0 ml IV Total 110.0 ml 130.0 ml Tube Feeding 62 ml 744 ml Output Urine Total 500 ml # Voids 3 3 Objective GENERAL: A well-developed male, NAD HEENT: Negative. Extraocular movements are intact. Oropharynx is moist. NECK: Supple. No adenopathy. LUNGS: Moderate breath sounds. No rhonchi or wheezes. SAME CARDIAC: Normal S1, S2. Regular rate and rhythm without murmurs, rubs, or gallops. ABDOMEN: Soft, nontender, and nondistended. EXTREMITIES: No cyanosis, clubbing, or edema. NEUROLOGICAL: Grossly nonfocal and confused. reviewed and edited Microbiology Date/Time Source Procedure Growth Status 12/18/17 15:00 Sputum Gram Stain - Final Complete 12/18/17 15:00 Sputum Culture - Final Klebsiella Pneumoniae Esbl Escherichia Coli - Esbl Usual Respiratory Jes Complete Laboratory Tests 12/21/17 07:35: White Blood Count 4.0L, Red Blood Count 3.41L, Hemoglobin 9.2L, Hematocrit 28.0L , Mean Corpuscular Volume 82, Mean Corpuscular Hemoglobin 26.9L, Mean Corpuscular Hemoglobin Concent 32.7, Red Cell Distribution Width 15.8H, Platelet Count 288, Mean Platelet Volume 5.4L, Neutrophils (%) (Auto) 68.4, Lymphocytes (%) (Auto) 11.6L, Monocytes (%) (Auto) 19.5H, Eosinophils (%) (Auto ) 0.1, Basophils (%) (Auto) 0.5 Current Medications Medications (Trade) Dose Ordered Sig/Iram Route PRN Reason Start Time Stop Time Status Last Admin Dose Admin Acetaminophen (Tylenol) 500 mg Q4H PRN ORAL Mild Pain/Temp > 100.5 12/16/17 20:15 01/15/18 20:14 Acetaminophen (Tylenol) 650 mg Q4H PRN ORAL Fever/Headache/Mild Pain 12/16/17 20:15 01/15/18 20:14 12/21/17 08:26 Albuterol/ Ipratropium (Albuterol/ Ipratropium) 3 ml Q4H PRN HHN Shortness of Breath 12/16/17 20:15 12/21/17 20:14 Amlodipine Besylate (Norvasc) 10 mg DAILY ORAL 12/17/17 09:00 01/16/18 08:59 12/21/17 08:25 Cyanocobalamin (Vitamin B12) 100 mcg QHS SUBQ 12/16/17 21:00 01/15/18 20:59 12/20/17 23:17 Docusate Sodium (Colace) 250 mg TWICE A DAY NG 12/20/17 09:00 01/19/18 08:59 12/21/17 08:26 Doxazosin Mesylate (Cardura) 1 mg DAILY ORAL 12/17/17 09:00 01/16/18 08:59 12/21/17 08:24 Famotidine (Pepcid) 20 mg DAILY ORAL 12/17/17 09:00 01/16/18 08:59 12/21/17 08:25 Magnesium Hydroxide (Mom) 30 ml DAILY ORAL 12/17/17 09:00 01/16/18 08:59 12/21/17 08:26 Meropenem 1 gm/ Sodium Chloride 110 ml @ 220 mls/hr Q8HR IVPB 12/21/17 09:30 12/26/17 09:29 12/21/17 09:34 Multivitamins Therapeutic (Therapeutic Multivitamin) 1 ea DAILY ORAL 12/17/17 09:00 01/16/18 08:59 12/21/17 08:25 Ondansetron HCl (Zofran) 4 mg Q6H PRN IVP Nausea & Vomiting 12/16/17 20:15 01/15/18 20:14 Tamsulosin HCl (Flomax) 0.4 mg BEDTIME ORAL 12/16/17 21:00 01/15/18 20:59 12/20/17 23:16 Nakul Cisse MD December 21, 2017 10:19
[2017-12-21 12:00] VITALS: BP 116/92
--- NOTE | 2017-12-21 13:08 | General Progress Note ---
Assessment/Plan Assessment/Plan - Transient N/V with resultant aspiration - abnormal LFT>>> improving - OBS - HTN - CVA - dysphagia, PEG - pneumobilia and s/p poonam on CT -stool impaction Recommendations - TF - check hepatitis serologies -- negative - Hold statin and re check LFT - follow labs - CT noted. -add miralax Subjective ROS Limited/Unobtainable: No Allergies: Coded Allergies: No Known Allergies (Unverified , 01/27/17) Objective Last 24 Hour Vital Signs Date Time Temp Pulse Resp B/P (MAP) Pulse Ox O2 Delivery O2 Flow Rate FiO2 12/21/17 12:00 97.7 79 20 116/92 97 Room Air 97.7 12/21/17 12:00 88 12/21/17 08:25 87 127/67 12/21/17 08:00 99.5 87 20 127/67 97 Room Air 99.5 12/21/17 08:00 85 12/21/17 07:53 97 20 Room Air 21 12/21/17 04:00 98 12/21/17 04:00 99.3 103 20 133/61 100 Room Air 99.3 12/21/17 00:00 98.1 100 20 103/68 96 Room Air 98.1 12/21/17 00:00 104 12/20/17 20:00 84 12/20/17 20:00 98.1 100 20 94/64 97 Room Air 98.1 96 12/20/17 19:55 87 18 Room Air 21 12/20/17 16:00 98.1 100 18 118/70 97 Room Air 98.1 12/20/17 16:00 95 Intake and Output 12/20/17 12/21/17 19:00 07:00 Intake Total 172.0 ml 874.0 ml Output Total 500 ml Balance -328.0 ml 874.0 ml IV Total 110.0 ml 130.0 ml Tube Feeding 62 ml 744 ml Output Urine Total 500 ml # Voids 3 3 Laboratory Tests 12/21/17 07:35: White Blood Count 4.0L, Red Blood Count 3.41L, Hemoglobin 9.2L, Hematocrit 28.0L , Mean Corpuscular Volume 82, Mean Corpuscular Hemoglobin 26.9L, Mean Corpuscular Hemoglobin Concent 32.7, Red Cell Distribution Width 15.8H, Platelet Count 288, Mean Platelet Volume 5.4L, Neutrophils (%) (Auto) 68.4, Lymphocytes (%) (Auto) 11.6L, Monocytes (%) (Auto) 19.5H, Eosinophils (%) (Auto ) 0.1, Basophils (%) (Auto) 0.5 Height (Feet): 6 Height (Inches): 1.00 Weight (Pounds): 180 General Appearance: confused EENT: normal ENT inspection Neck: supple Cardiovascular: normal rate Respiratory/Chest: decreased breath sounds Abdomen: normal bowel sounds, non tender, soft Extremities: non-tender Roberto Carlos Hung MD December 21, 2017 13:08
[2017-12-21] MEDS ORDERED: Tubing IV Secondary IV ONE (15:31)
[2017-12-21] MEDS ORDERED: NS 275ml ONE (15:31)
[2017-12-21] MEDS ORDERED: Sterile Water Irrig 1000ml IRRIG ONE (15:31)
[2017-12-21 16:00] VITALS: BP 115/59
[2017-12-21 20:00] VITALS: BP 127/63
[2017-12-21] MEDS: Tamsulosin 0.4mg cap ORAL SCH (20:29)
[2017-12-21] MEDS: Miralax 17gm pkt ORAL SCH (20:30)
[2017-12-21] MEDS: Vitamin B12 1000mcg/ml Inj SUBQ SCH (20:33)
[2017-12-22] VITALS: BP_SYST 116; BP_SYST 130; BP_DIAS 74; BP_DIAS 92
[2017-12-22 04:00] VITALS: BP 137/77
[2017-12-22] MEDS: Meropenem 1gm/NS 110ml IVPB SCH ×2 (05:31)
--- NOTE | 2017-12-22 07:08 | Pulmonology Progress Note ---
Assessment/Plan Assessment/Plan IMPRESSION: 1. Evidence of pneumonia, possible aspiration. 2. Nausea. 3. Vomiting. 4. Hyperlipidemia. 5. Cerebrovascular accident. PLAN continue same as is CT with possible infiltrates of the abdomen respiratory care as is iv antibiotics as is cxr repeat consider dedicated CT chest if cxr does not improved expect a lag in imaging resolution oxygen as needed gt feeds aspiration precautions impression, plan, and exam edited and reviewed in detail care discussed with RN Subjective Allergies: Coded Allergies: No Known Allergies (Unverified , 01/27/17) Subjective awake as prior and stable minimal congestion confused at baseline Objective Last 24 Hour Vital Signs Date Time Temp Pulse Resp B/P (MAP) Pulse Ox O2 Delivery O2 Flow Rate FiO2 12/22/17 04:00 112 12/22/17 04:00 98.4 105 22 137/77 98 Room Air 98.4 12/22/17 00:00 97.2 95 23 130/74 97 Room Air 97.2 12/22/17 00:00 92 12/21/17 20:00 102 12/21/17 20:00 98.1 89 22 127/63 97 Room Air 98.1 12/21/17 19:30 88 18 Room Air 21 12/21/17 16:00 98 12/21/17 16:00 98.1 83 20 115/59 98 Room Air 98.1 12/21/17 12:00 97.7 79 20 116/92 97 Room Air 97.7 12/21/17 12:00 88 12/21/17 08:25 87 127/67 12/21/17 08:00 99.5 87 20 127/67 97 Room Air 99.5 12/21/17 08:00 85 12/21/17 07:53 97 20 Room Air 21 Intake and Output 12/21/17 12/22/17 19:00 07:00 Intake Total 322.5 ml Balance 322.5 ml IV Total 260.5 ml Tube Feeding 62 ml # Voids 1 2 Objective GENERAL: A well-developed male, NAD HEENT: Negative. Oropharynx is moist and clear NECK: Supple. No adenopathy. LUNGS: Moderate breath sounds. No rhonchi or wheezes. mildly course CARDIAC: Normal S1, S2. Regular rate and rhythm without murmurs, rubs, or gallops. ABDOMEN: Soft, nontender, and nondistended. no distention EXTREMITIES: No cyanosis, clubbing, or edema. NEUROLOGICAL: Grossly nonfocal and confused. reviewed and edited Laboratory Tests 12/21/17 07:35: White Blood Count 4.0L, Red Blood Count 3.41L, Hemoglobin 9.2L, Hematocrit 28.0L , Mean Corpuscular Volume 82, Mean Corpuscular Hemoglobin 26.9L, Mean Corpuscular Hemoglobin Concent 32.7, Red Cell Distribution Width 15.8H, Platelet Count 288, Mean Platelet Volume 5.4L, Neutrophils (%) (Auto) 68.4, Lymphocytes (%) (Auto) 11.6L, Monocytes (%) (Auto) 19.5H, Eosinophils (%) (Auto ) 0.1, Basophils (%) (Auto) 0.5 Current Medications Medications (Trade) Dose Ordered Sig/Iram Route PRN Reason Start Time Stop Time Status Last Admin Dose Admin Acetaminophen (Tylenol) 500 mg Q4H PRN ORAL Mild Pain/Temp > 100.5 12/16/17 20:15 01/15/18 20:14 Acetaminophen (Tylenol) 650 mg Q4H PRN ORAL Fever/Headache/Mild Pain 12/16/17 20:15 01/15/18 20:14 12/21/17 18:22 Amlodipine Besylate (Norvasc) 10 mg DAILY ORAL 12/17/17 09:00 01/16/18 08:59 12/21/17 08:25 Cyanocobalamin (Vitamin B12) 100 mcg QHS SUBQ 12/16/17 21:00 01/15/18 20:59 12/21/17 20:33 Docusate Sodium (Colace) 250 mg TWICE A DAY NG 12/20/17 09:00 01/19/18 08:59 12/21/17 17:22 Doxazosin Mesylate (Cardura) 1 mg DAILY ORAL 12/17/17 09:00 01/16/18 08:59 12/21/17 08:24 Famotidine (Pepcid) 20 mg DAILY ORAL 12/17/17 09:00 01/16/18 08:59 12/21/17 08:25 Magnesium Hydroxide (Mom) 30 ml DAILY ORAL 12/17/17 09:00 01/16/18 08:59 12/21/17 08:26 Meropenem 1 gm/ Sodium Chloride 110 ml @ 220 mls/hr Q8HR IVPB 12/21/17 09:30 12/26/17 09:29 12/22/17 05:31 Multivitamins Therapeutic (Therapeutic Multivitamin) 1 ea DAILY ORAL 12/17/17 09:00 01/16/18 08:59 12/21/17 08:25 Ondansetron HCl (Zofran) 4 mg Q6H PRN IVP Nausea & Vomiting 12/16/17 20:15 01/15/18 20:14 Polyethylene Glycol (Miralax) 17 gm BEDTIME ORAL 12/21/17 21:00 01/20/18 20:59 12/21/17 20:30 Tamsulosin HCl (Flomax) 0.4 mg BEDTIME ORAL 12/16/17 21:00 01/15/18 20:59 12/21/17 20:29 Nakul Cisse MD December 22, 2017 07:08
[2017-12-22 08:00] VITALS: BP 134/71
[2017-12-22 08:34] LABS: BASOPHILS % (AUTO) 0.5 % (0.0-2.0); EOSINOPHILS % (AUTO) 0.3 % (0.0-3.0); HEMATOCRIT 27.4 % (42.0-52.0); HEMOGLOBIN 9.1 G/DL (14.2-18.0); LYMPHOCYTES % (AUTO) 11.2 % (20.0-45.0); MEAN CORPUSCULAR VOLUME 82 FL (80-99); NEUTROPHILS % (AUTO) 75.1 % (45.0-75.0); PLATELET COUNT 296 K/UL (150-450); RED BLOOD COUNT 3.35 M/UL (4.70-6.10); RED CELL DISTRIBUTION WIDTH 15.4 % (11.6-14.8); WHITE BLOOD COUNT 4.4 K/UL (4.8-10.8)
[2017-12-22] MEDS: Docusate 100mg/10ml Liq NG SCH ×2 (08:34→18:13)
[2017-12-22] MEDS: Milk of Magnesia 30ml Ud ORAL SCH (08:34)
[2017-12-22] MEDS: Doxazosin 1mg Tab ORAL SCH (08:35)
[2017-12-22] MEDS: Multivitamin w/Minerals tab ORAL SCH (08:35)
[2017-12-22 08:50] LABS: ALANINE AMINOTRANSFERASE 57 U/L (12-78); ALBUMIN/GLOBULIN RATIO 0.4 (1.0-2.7); ALKALINE PHOSPHATASE 192 U/L (46-116); ANION GAP 8 mmol/L (5-15); ASPARTATE AMINO TRANSFERASE 48 U/L (15-37); BILIRUBIN,TOTAL 0.3 MG/DL (0.2-1.0); BLOOD UREA NITROGEN 20 mg/dL (7-18); CALCIUM 8.6 MG/DL (8.5-10.1); CARBON DIOXIDE 26 MMOL/L (21-32); CHLORIDE 102 MMOL/L (98-107); CREATININE 0.9 MG/DL (0.55-1.30); POTASSIUM 3.9 MMOL/L (3.5-5.1); SODIUM 136 MMOL/L (136-145)
--- NOTE | 2017-12-22 09:48 | General Progress Note ---
Assessment/Plan Problem List: (1) HTN (hypertension) ICD Codes: I10 - Essential (primary) hypertension SNOMED: 96970173 (2) BPH (benign prostatic hyperplasia) ICD Codes: N40.0 - Benign prostatic hyperplasia without lower urinary tract symptoms SNOMED: 070105468, 768227636 (3) Hyperlipidemia ICD Codes: E78.5 - Hyperlipidemia, unspecified SNOMED: 50634624 (4) Dementia ICD Codes: F03.90 - Unspecified dementia without behavioral disturbance SNOMED: 01796324 (5) Probable sepsis ICD Codes: A41.9 - Sepsis, unspecified organism SNOMED: 359536144 (6) Encephalopathy ICD Codes: G93.40 - Encephalopathy, unspecified SNOMED: 16352209 (7) Pneumonia ICD Codes: J18.9 - Pneumonia, unspecified organism SNOMED: 717014607 Status: stable, progressing Assessment/Plan iv abx follow up cultures gt feeds monitor 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 resp rx monitor cxr skin care dc pending pulm and id clearance d/w Subjective ROS Limited/Unobtainable: No Constitutional: Reports: malaise, weakness HEENT: Reports: no symptoms Cardiovascular: Reports: no symptoms Respiratory: Reports: cough, shortness of breath, sputum Gastrointestinal/Abdominal: Reports: difficulty swallowing Genitourinary: Reports: no symptoms Neurologic/Psychiatric: Reports: depressed Endocrine: Reports: no symptoms Hematologic/Lymphatic: Reports: no symptoms Allergies: Coded Allergies: No Known Allergies (Unverified , 01/27/17) All Systems: reviewed and negative except above Subjective no events. remains more confused/lethargic than baseline. cxr yesterday with no improvement in betsy infil. tolerating feeds. no fevers. Objective Last 24 Hour Vital Signs Date Time Temp Pulse Resp B/P (MAP) Pulse Ox O2 Delivery O2 Flow Rate FiO2 12/22/17 08:35 95 134/71 12/22/17 08:00 99.1 95 26 134/71 95 Room Air 99.1 12/22/17 04:00 112 12/22/17 04:00 98.4 105 22 137/77 98 Room Air 98.4 12/22/17 00:00 97.2 95 23 130/74 97 Room Air 97.2 12/22/17 00:00 92 12/21/17 20:00 102 12/21/17 20:00 98.1 89 22 127/63 97 Room Air 98.1 12/21/17 19:30 88 18 Room Air 21 12/21/17 16:00 98 12/21/17 16:00 98.1 83 20 115/59 98 Room Air 98.1 12/21/17 12:00 97.7 79 20 116/92 97 Room Air 97.7 12/21/17 12:00 88 Intake and Output 12/21/17 12/22/17 19:00 07:00 Intake Total 322.5 ml Balance 322.5 ml IV Total 260.5 ml Tube Feeding 62 ml # Voids 1 2 Laboratory Tests 12/22/17 07:10: White Blood Count 4.4L, Red Blood Count 3.35L, Hemoglobin 9.1L, Hematocrit 27.4L , Mean Corpuscular Volume 82, Mean Corpuscular Hemoglobin 27.2, Mean Corpuscular Hemoglobin Concent 33.4, Red Cell Distribution Width 15.4H, Platelet Count 296, Mean Platelet Volume 5.4L, Neutrophils (%) (Auto) 75.1H, Lymphocytes (%) (Auto) 11.2L, Monocytes (%) (Auto) 13.0H, Eosinophils (%) (Auto ) 0.3, Basophils (%) (Auto) 0.5, Sodium Level 136, Potassium Level 3.9, Chloride Level 102, Carbon Dioxide Level 26, Anion Gap 8, Blood Urea Nitrogen 20H, Creatinine 0.9, Estimat Glomerular Filtration Rate , Glucose Level 144H, Calcium Level 8.6, Total Bilirubin 0.3, Aspartate Amino Transf (AST/SGOT) 48H, Alanine Aminotransferase (ALT/SGPT) 57, Alkaline Phosphatase 192H, Total Protein 7.0, Albumin 2.0L, Globulin 5.0, Albumin/Globulin Ratio 0.4L Height (Feet): 6 Height (Inches): 1.00 Weight (Pounds): 180 Objective General Appearance: WD/WN, alert Neck: supple Cardiovascular: regular rhythm Respiratory/Chest: lungs clear, normal breath sounds Abdomen: normal bowel sounds, non tender, soft Edema: no edema noted Arm (L), no edema noted Arm (R), no edema noted Leg (L), no edema noted Leg (R), no edema noted Pedal (L), no edema noted Pedal (R), no edema noted Generalized PUJA OLIVA December 22, 2017 09:48
--- NOTE | 2017-12-22 10:16 | Infectious Diseases Prog Note ---
"Assessment/Plan Assessment/Plan antibiotics : zosyn A 1. klebsiella | e.coli pneumonia 2. respiratory failure 3. hypertension 4. rectal VRE colonization P 1. d/c zosyn 2. start bactrim 3. will follow up cultures Subjective ROS Limited/Unobtainable: Yes Allergies: Coded Allergies: No Known Allergies (Unverified , 01/27/17) Objective Vital Signs Last 24 Hour Vital Signs Date Time Temp Pulse Resp B/P (MAP) Pulse Ox O2 Delivery O2 Flow Rate FiO2 12/22/17 08:35 95 134/71 12/22/17 08:00 99.1 95 26 134/71 95 Room Air 99.1 12/22/17 04:00 112 12/22/17 04:00 98.4 105 22 137/77 98 Room Air 98.4 12/22/17 00:00 97.2 95 23 130/74 97 Room Air 97.2 12/22/17 00:00 92 12/21/17 20:00 102 12/21/17 20:00 98.1 89 22 127/63 97 Room Air 98.1 12/21/17 19:30 88 18 Room Air 21 12/21/17 16:00 98 12/21/17 16:00 98.1 83 20 115/59 98 Room Air 98.1 12/21/17 12:00 97.7 79 20 116/92 97 Room Air 97.7 12/21/17 12:00 88 Height (Feet): 6 Height (Inches): 1.00 Weight (Pounds): 180 Respiratory/Chest: lungs clear Cardiovascular: normal rate, regular rhythm, no gallop/murmur Abdomen: soft, non tender, other - GT Extremities: no edema Laboratory Tests Test 12/22/17 07:10 White Blood Count 4.4 K/UL (4.8-10.8) L Red Blood Count 3.35 M/UL (4.70-6.10) L Hemoglobin 9.1 G/DL (14.2-18.0) L Hematocrit 27.4 % (42.0-52.0) L Mean Corpuscular Volume 82 FL (80-99) Mean Corpuscular Hemoglobin 27.2 PG (27.0-31.0) Mean Corpuscular Hemoglobin Concent 33.4 G/DL (32.0-36.0) Red Cell Distribution Width 15.4 % (11.6-14.8) H Platelet Count 296 K/UL (150-450) Mean Platelet Volume 5.4 FL (6.5-10.1) L Neutrophils (%) (Auto) 75.1 % (45.0-75.0) H Lymphocytes (%) (Auto) 11.2 % (20.0-45.0) L Monocytes (%) (Auto) 13.0 % (1.0-10.0) H Eosinophils (%) (Auto) 0.3 % (0.0-3.0) Basophils (%) (Auto) 0.5 % (0.0-2.0) Sodium Level 136 MMOL/L (136-145) Potassium Level 3.9 MMOL/L (3.5-5.1) Chloride Level 102 MMOL/L (98-107) Carbon Dioxide Level 26 MMOL/L (21-32) Anion Gap 8 mmol/L (5-15) Blood Urea Nitrogen 20 mg/dL (7-18) H Creatinine 0.9 MG/DL (0.55-1.30) Estimat Glomerular Filtration Rate mL/min (>60) Glucose Level 144 MG/DL (74-106) H Calcium Level 8.6 MG/DL (8.5-10.1) Total Bilirubin 0.3 MG/DL (0.2-1.0) Aspartate Amino Transf (AST/SGOT) 48 U/L (15-37) H Alanine Aminotransferase (ALT/SGPT) 57 U/L (12-78) Alkaline Phosphatase 192 U/L (46-116) H Total Protein 7.0 G/DL (6.4-8.2) Albumin 2.0 G/DL (3.4-5.0) L Globulin 5.0 g/dL Albumin/Globulin Ratio 0.4 (1.0-2.7) L Current Medications Medications (Trade) Dose Ordered Sig/Iram Route PRN Reason Start Time Stop Time Status Last Admin Dose Admin Acetaminophen (Tylenol) 500 mg Q4H PRN ORAL Mild Pain/Temp > 100.5 12/16/17 20:15 01/15/18 20:14 Acetaminophen (Tylenol) 650 mg Q4H PRN ORAL Fever/Headache/Mild Pain 12/16/17 20:15 01/15/18 20:14 12/21/17 18:22 Amlodipine Besylate (Norvasc) 10 mg DAILY ORAL 12/17/17 09:00 01/16/18 08:59 12/22/17 08:35 Cyanocobalamin (Vitamin B12) 100 mcg QHS SUBQ 12/16/17 21:00 01/15/18 20:59 12/21/17 20:33 Docusate Sodium (Colace) 250 mg TWICE A DAY NG 12/20/17 09:00 01/19/18 08:59 12/22/17 08:34 Doxazosin Mesylate (Cardura) 1 mg DAILY ORAL 12/17/17 09:00 01/16/18 08:59 12/22/17 08:35 Famotidine (Pepcid) 20 mg DAILY ORAL 12/17/17 09:00 01/16/18 08:59 12/22/17 08:35 Magnesium Hydroxide (Mom) 30 ml DAILY ORAL 12/17/17 09:00 01/16/18 08:59 12/22/17 08:34 Meropenem 1 gm/ Sodium Chloride 110 ml @ 220 mls/hr Q8HR IVPB 12/21/17 09:30 12/26/17 09:29 12/22/17 05:31 Multivitamins Therapeutic (Therapeutic Multivitamin) 1 ea DAILY ORAL 12/17/17 09:00 01/16/18 08:59 12/22/17 08:35 Ondansetron HCl (Zofran) 4 mg Q6H PRN IVP Nausea & Vomiting 12/16/17 20:15 01/15/18 20:14 Polyethylene Glycol (Miralax) 17 gm BEDTIME ORAL 12/21/17 21:00 01/20/18 20:59 12/21/17 20:30 Tamsulosin HCl (Flomax) 0.4 mg BEDTIME ORAL 12/16/17 21:00 01/15/18 20:59 12/21/17 20:29 RENÉE RICHARDSON December 22, 2017 10:16"
--- NOTE | 2017-12-22 10:18 | General Progress Note ---
Assessment/Plan Assessment/Plan - Transient N/V with resultant aspiration - abnormal LFT>>> improving - OBS - HTN - CVA - dysphagia, PEG - pneumobilia and s/p poonam on CT -stool impaction Recommendations - TF - check hepatitis serologies -- negative - Hold statin and re check LFT - follow labs - CT noted. -dc milk of magnesia Subjective ROS Limited/Unobtainable: No Allergies: Coded Allergies: No Known Allergies (Unverified , 01/27/17) Subjective had loose stools Objective Last 24 Hour Vital Signs Date Time Temp Pulse Resp B/P (MAP) Pulse Ox O2 Delivery O2 Flow Rate FiO2 12/22/17 08:35 95 134/71 12/22/17 08:00 99.1 95 26 134/71 95 Room Air 99.1 12/22/17 04:00 112 12/22/17 04:00 98.4 105 22 137/77 98 Room Air 98.4 12/22/17 00:00 97.2 95 23 130/74 97 Room Air 97.2 12/22/17 00:00 92 12/21/17 20:00 102 12/21/17 20:00 98.1 89 22 127/63 97 Room Air 98.1 12/21/17 19:30 88 18 Room Air 21 12/21/17 16:00 98 12/21/17 16:00 98.1 83 20 115/59 98 Room Air 98.1 12/21/17 12:00 97.7 79 20 116/92 97 Room Air 97.7 12/21/17 12:00 88 Intake and Output 12/21/17 12/22/17 19:00 07:00 Intake Total 322.5 ml Balance 322.5 ml IV Total 260.5 ml Tube Feeding 62 ml # Voids 1 2 Laboratory Tests 12/22/17 07:10: White Blood Count 4.4L, Red Blood Count 3.35L, Hemoglobin 9.1L, Hematocrit 27.4L , Mean Corpuscular Volume 82, Mean Corpuscular Hemoglobin 27.2, Mean Corpuscular Hemoglobin Concent 33.4, Red Cell Distribution Width 15.4H, Platelet Count 296, Mean Platelet Volume 5.4L, Neutrophils (%) (Auto) 75.1H, Lymphocytes (%) (Auto) 11.2L, Monocytes (%) (Auto) 13.0H, Eosinophils (%) (Auto ) 0.3, Basophils (%) (Auto) 0.5, Sodium Level 136, Potassium Level 3.9, Chloride Level 102, Carbon Dioxide Level 26, Anion Gap 8, Blood Urea Nitrogen 20H, Creatinine 0.9, Estimat Glomerular Filtration Rate , Glucose Level 144H, Calcium Level 8.6, Total Bilirubin 0.3, Aspartate Amino Transf (AST/SGOT) 48H, Alanine Aminotransferase (ALT/SGPT) 57, Alkaline Phosphatase 192H, Total Protein 7.0, Albumin 2.0L, Globulin 5.0, Albumin/Globulin Ratio 0.4L Height (Feet): 6 Height (Inches): 1.00 Weight (Pounds): 180 General Appearance: no apparent distress EENT: normal ENT inspection Neck: supple Cardiovascular: normal rate Respiratory/Chest: decreased breath sounds Abdomen: normal bowel sounds, non tender, soft Extremities: non-tender Roberto Carlos Hung MD December 22, 2017 10:18
[2017-12-22] MEDS: Bactrim-DS 1 tab ORAL SCH ×2 (10:43→18:13)
[2017-12-22 12:00] VITALS: BP 112/55
[2017-12-22] MEDS ORDERED: Albuterol/Ipratropium 3ml neb HHN PRN (15:00)
[2017-12-22 16:00] VITALS: BP 108/52
[2017-12-22 20:00] VITALS: BP 122/54
[2017-12-22] MEDS: Tamsulosin 0.4mg cap ORAL SCH (20:09)
[2017-12-22] MEDS: Miralax 17gm pkt ORAL SCH (20:10)
[2017-12-22] MEDS: Vitamin B12 1000mcg/ml Inj SUBQ SCH (20:10)
[2017-12-23] VITALS (7 sets, daily range): BP systolic 99–130; BP diastolic 57–75
[2017-12-23] MEDS ORDERED: Sodium Chloride 500ML 500 ML IV ONE (06:15)
--- NOTE | 2017-12-23 08:09 | General Progress Note ---
Assessment/Plan Problem List: (1) HTN (hypertension) ICD Codes: I10 - Essential (primary) hypertension SNOMED: 78625530 (2) BPH (benign prostatic hyperplasia) ICD Codes: N40.0 - Benign prostatic hyperplasia without lower urinary tract symptoms SNOMED: 727797894, 052932175 (3) Hyperlipidemia ICD Codes: E78.5 - Hyperlipidemia, unspecified SNOMED: 69171582 (4) Dementia ICD Codes: F03.90 - Unspecified dementia without behavioral disturbance SNOMED: 70756900 (5) Probable sepsis ICD Codes: A41.9 - Sepsis, unspecified organism SNOMED: 973469519 (6) Encephalopathy ICD Codes: G93.40 - Encephalopathy, unspecified SNOMED: 40745226 (7) Pneumonia ICD Codes: J18.9 - Pneumonia, unspecified organism SNOMED: 625439454 Status: stable Assessment/Plan iv abx follow up cultures gt feeds monitor h/h IVF bolus monitor for aspiration resp rx monitor cxr skin care dc pending pulm and id clearance d/w Subjective ROS Limited/Unobtainable: Yes Constitutional: Reports: malaise, weakness HEENT: Reports: no symptoms Cardiovascular: Reports: no symptoms Respiratory: Reports: cough Genitourinary: Reports: no symptoms Neurologic/Psychiatric: Reports: pre-existing deficit Endocrine: Reports: no symptoms Hematologic/Lymphatic: Reports: no symptoms Allergies: Coded Allergies: No Known Allergies (Unverified , 01/27/17) All Systems: reviewed and negative except above Subjective tachycardic 120s this am. denies chest pain no congestion. on iv abx. Objective Last 24 Hour Vital Signs Date Time Temp Pulse Resp B/P (MAP) Pulse Ox O2 Delivery O2 Flow Rate FiO2 12/23/17 06:24 99.1 12/23/17 05:25 99.1 12/23/17 04:00 120 12/23/17 04:00 99.1 75 22 99/68 95 Room Air 99.1 12/23/17 00:00 93 12/23/17 00:00 97.2 105 24 125/59 99 Room Air 97.2 12/22/17 20:11 97.7 12/22/17 20:00 106 12/22/17 20:00 97.0 107 23 122/54 96 Room Air 97.0 12/22/17 16:00 97.7 89 28 108/52 98 Room Air 97.7 12/22/17 16:00 85 12/22/17 15:00 28 12/22/17 15:00 79 18 99 Nasal Cannula 2.0 28 12/22/17 15:00 79 18 99 Nasal Cannula 2.0 28 12/22/17 12:00 98.2 104 22 112/55 97 Room Air 98.2 12/22/17 12:00 111 12/22/17 08:35 95 134/71 Intake and Output 12/22/17 12/23/17 19:00 07:00 Intake Total 62 ml 682 ml Balance 62 ml 682 ml Tube Feeding 62 ml 682 ml # Voids 2 Height (Feet): 6 Height (Inches): 1.00 Weight (Pounds): 180 Objective General Appearance: WD/WN, alert Neck: supple Cardiovascular: regular rhythm Respiratory/Chest: lungs clear, normal breath sounds Abdomen: normal bowel sounds, non tender, soft Edema: no edema noted Arm (L), no edema noted Arm (R), no edema noted Leg (L), no edema noted Leg (R), no edema noted Pedal (L), no edema noted Pedal (R), no edema noted Generalized PUJA OLIVA December 23, 2017 08:09
--- NOTE | 2017-12-23 08:14 | Pulmonology Progress Note ---
Assessment/Plan Assessment/Plan IMPRESSION: 1. Evidence of pneumonia, possible aspiration. 2. Nausea. 3. Vomiting. 4. Hyperlipidemia. 5. Cerebrovascular accident. PLAN continue same as is no significant change in exam respiratory care as is iv antibiotics as is cxr repeat ordered consider dedicated CT chest if cxr does not improved; will decide pending results clinically improved oxygen as needed gt feeds aspiration precautions impression, plan, and exam edited and reviewed in detail care discussed with RN Subjective Allergies: Coded Allergies: No Known Allergies (Unverified , 01/27/17) Subjective awake and no distress minimal congestion confused at baseline Objective Last 24 Hour Vital Signs Date Time Temp Pulse Resp B/P (MAP) Pulse Ox O2 Delivery O2 Flow Rate FiO2 12/23/17 06:24 99.1 12/23/17 05:25 99.1 12/23/17 04:00 120 12/23/17 04:00 99.1 75 22 99/68 95 Room Air 99.1 12/23/17 00:00 93 12/23/17 00:00 97.2 105 24 125/59 99 Room Air 97.2 12/22/17 20:11 97.7 12/22/17 20:00 106 12/22/17 20:00 97.0 107 23 122/54 96 Room Air 97.0 12/22/17 16:00 97.7 89 28 108/52 98 Room Air 97.7 12/22/17 16:00 85 12/22/17 15:00 28 12/22/17 15:00 79 18 99 Nasal Cannula 2.0 28 12/22/17 15:00 79 18 99 Nasal Cannula 2.0 28 12/22/17 12:00 98.2 104 22 112/55 97 Room Air 98.2 12/22/17 12:00 111 12/22/17 08:35 95 134/71 Intake and Output 12/22/17 12/23/17 19:00 07:00 Intake Total 62 ml 682 ml Balance 62 ml 682 ml Tube Feeding 62 ml 682 ml # Voids 2 Objective GENERAL: A well-developed male, NAD HEENT: Negative. Oropharynx is moist and clear NECK: Supple. No adenopathy. LUNGS: Moderate breath sounds. No rhonchi or wheezes. mildly course CARDIAC: Normal S1, S2. Regular rate and rhythm without murmurs, rubs, or gallops. ABDOMEN: Soft, nontender, and nondistended. no distention EXTREMITIES: No cyanosis, clubbing, or edema. NEUROLOGICAL: Grossly nonfocal and confused. reviewed and edited Laboratory Tests 12/23/17 07:50: Troponin I [Pending] Current Medications Medications (Trade) Dose Ordered Sig/Iram Route PRN Reason Start Time Stop Time Status Last Admin Dose Admin Acetaminophen (Tylenol) 500 mg Q4H PRN ORAL Mild Pain/Temp > 100.5 12/16/17 20:15 01/15/18 20:14 Acetaminophen (Tylenol) 650 mg Q4H PRN ORAL Fever/Headache/Mild Pain 12/16/17 20:15 01/15/18 20:14 12/23/17 05:25 Albuterol/ Ipratropium (Albuterol/ Ipratropium) 3 ml Q4H PRN HHN Shortness of Breath 12/22/17 15:00 12/27/17 14:59 12/22/17 15:00 Amlodipine Besylate (Norvasc) 10 mg DAILY ORAL 12/17/17 09:00 01/16/18 08:59 12/22/17 08:35 Cyanocobalamin (Vitamin B12) 100 mcg QHS SUBQ 12/16/17 21:00 01/15/18 20:59 12/22/17 20:10 Docusate Sodium (Colace) 250 mg TWICE A DAY NG 12/20/17 09:00 01/19/18 08:59 12/22/17 18:13 Doxazosin Mesylate (Cardura) 1 mg DAILY ORAL 12/17/17 09:00 01/16/18 08:59 12/22/17 08:35 Famotidine (Pepcid) 20 mg DAILY ORAL 12/17/17 09:00 01/16/18 08:59 12/22/17 08:35 Multivitamins Therapeutic (Therapeutic Multivitamin) 1 ea DAILY ORAL 12/17/17 09:00 01/16/18 08:59 12/22/17 08:35 Ondansetron HCl (Zofran) 4 mg Q6H PRN IVP Nausea & Vomiting 12/16/17 20:15 01/15/18 20:14 Polyethylene Glycol (Miralax) 17 gm BEDTIME ORAL 12/21/17 21:00 01/20/18 20:59 12/22/17 20:10 Tamsulosin HCl (Flomax) 0.4 mg BEDTIME ORAL 12/16/17 21:00 01/15/18 20:59 12/22/17 20:09 Trimethoprim/ Sulfamethoxazole (Bactrim-DS) 1 tab TWICE A DAY ORAL 12/22/17 11:15 12/29/17 11:14 12/22/17 18:13 Nakul Cisse MD December 23, 2017 08:14
[2017-12-23] MEDS: Multivitamin w/Minerals tab ORAL SCH (08:42)
[2017-12-23] MEDS: Docusate 100mg/10ml Liq NG SCH ×2 (08:42→17:40)
[2017-12-23] MEDS: Doxazosin 1mg Tab ORAL SCH (08:42)
[2017-12-23] MEDS: Bactrim-DS 1 tab ORAL SCH ×2 (08:48→17:40)
--- NOTE | 2017-12-23 08:52 | General Progress Note ---
Assessment/Plan Assessment/Plan - Transient N/V with resultant aspiration - abnormal LFT>>> improving - OBS - HTN - CVA - dysphagia, PEG - pneumobilia and s/p poonam on CT -stool impaction Recommendations - TF - check hepatitis serologies -- negative - Hold statin and re check LFT - follow labs - CT noted. -dc milk of magnesia Subjective ROS Limited/Unobtainable: No Allergies: Coded Allergies: No Known Allergies (Unverified , 01/27/17) Subjective had low grade fever tolerating GTF Objective Last 24 Hour Vital Signs Date Time Temp Pulse Resp B/P (MAP) Pulse Ox O2 Delivery O2 Flow Rate FiO2 12/23/17 08:49 97 110/78 12/23/17 06:24 99.1 12/23/17 05:25 99.1 12/23/17 04:00 120 12/23/17 04:00 99.1 75 22 99/68 95 Room Air 99.1 12/23/17 00:00 93 12/23/17 00:00 97.2 105 24 125/59 99 Room Air 97.2 12/22/17 20:11 97.7 12/22/17 20:00 106 12/22/17 20:00 97.0 107 23 122/54 96 Room Air 97.0 12/22/17 16:00 97.7 89 28 108/52 98 Room Air 97.7 12/22/17 16:00 85 12/22/17 15:00 28 12/22/17 15:00 79 18 99 Nasal Cannula 2.0 28 12/22/17 15:00 79 18 99 Nasal Cannula 2.0 28 12/22/17 12:00 98.2 104 22 112/55 97 Room Air 98.2 12/22/17 12:00 111 Intake and Output 12/22/17 12/23/17 19:00 07:00 Intake Total 62 ml 682 ml Balance 62 ml 682 ml Tube Feeding 62 ml 682 ml # Voids 2 Laboratory Tests 12/23/17 07:50: Troponin I [Pending] Height (Feet): 6 Height (Inches): 1.00 Weight (Pounds): 180 General Appearance: no apparent distress EENT: normal ENT inspection Neck: supple Cardiovascular: normal rate Respiratory/Chest: decreased breath sounds Abdomen: normal bowel sounds, non tender, soft Extremities: non-tender Roberto Carlos Hung MD December 23, 2017 08:52
--- NOTE | 2017-12-23 11:01 | Diagnostic Imaging Report ---
Indication: Dyspnea Comparison: 12/20/2017 A single view chest radiograph was obtained. Findings: Basilar infiltrate suspected with new infiltrate at the left lung base. Probable infiltrate at the right lung base was seen previously. Please correlate clinically. Heart is more borderline enlarged. Bones are osteopenic IMPRESSION: Suspected basilar infiltrates
[2017-12-23] MEDS ORDERED: LORazepam Inj 2mg/ml 1ml IV ONE ×2 (11:45→12:55)
--- NOTE | 2017-12-23 13:11 | Diagnostic Imaging Report ---
APPROVED REPORT CPT Code: 87534 Present Symptoms Shortness of breath BILATERAL: Imaging reveals a patent deep venous system bilaterally. There is no evidence of thrombus within the femoral, popliteal or tibial segments. The greater saphenous veins are also within normal limits. Doppler indicates normal spontaneous flow within these segments.
--- NOTE | 2017-12-23 13:50 | Cardiology Report ---
APPROVED REPORT EKG Measurement Heart [id number] Sinus tachycardia Otherwise normal ECG
[2017-12-23] MEDS: Vitamin B12 1000mcg/ml Inj SUBQ SCH (21:34)
[2017-12-23] MEDS: Meropenem 1 GM in NS 55 ML IVPB SCH (21:34)
[2017-12-23] MEDS: Tamsulosin 0.4mg cap ORAL SCH (21:34)
[2017-12-23] MEDS: Miralax 17gm pkt ORAL SCH (21:34)
[2017-12-24] VITALS: BP 115/66
[2017-12-24 04:00] VITALS: BP 131/66
[2017-12-24] MEDS: Meropenem 1 GM in NS 55 ML IVPB SCH ×2 (05:44→14:02)
--- NOTE | 2017-12-24 07:35 | Pulmonology Progress Note ---
Assessment/Plan Assessment/Plan IMPRESSION: 1. Evidence of pneumonia, possible aspiration. 2. Nausea. 3. Vomiting. 4. Hyperlipidemia. 5. Cerebrovascular accident. PLAN continue to monitor for change no significant change in exam respiratory care as is iv antibiotics as is cxr repeat ordered consider dedicated CT chest if cxr does not improved; will decide pending results oxygen as needed gt feeds aspiration precautions impression, plan, and exam edited and reviewed in detail care discussed with RN Subjective Allergies: Coded Allergies: No Known Allergies (Unverified , 01/27/17) Subjective awake and no distress no significant congestion confused at baseline Objective Last 24 Hour Vital Signs Date Time Temp Pulse Resp B/P (MAP) Pulse Ox O2 Delivery O2 Flow Rate FiO2 12/24/17 04:00 99 12/24/17 04:00 98.2 89 23 131/66 98 Nasal Cannula 2.0 98.2 12/24/17 00:00 98.7 97 24 115/66 99 Nasal Cannula 2.0 98.7 12/24/17 00:00 90 12/23/17 20:00 101 12/23/17 20:00 98.6 99 20 112/63 96 Nasal Cannula 2.0 98.6 12/23/17 16:00 96 12/23/17 16:00 98.5 108 130/69 100 Nasal Cannula 2.0 98.5 12/23/17 13:41 101 116/70 100 Nasal Cannula 2.0 12/23/17 12:00 97.9 100 21 105/57 100 Nasal Cannula 2.0 100 97.9 12/23/17 12:00 96 12/23/17 08:49 97 110/78 12/23/17 08:00 94 12/23/17 08:00 97.8 70 20 110/75 100 Nasal Cannula 2.0 100 97.8 Intake and Output 12/23/17 12/24/17 19:00 07:00 Intake Total 425 ml Balance 425 ml IV Total 55 ml Tube Feeding 310 ml Other 60 ml # Voids 1 2 Objective GENERAL: A well-developed male, NAD HEENT: Negative. Oropharynx is moist and clear NECK: Supple. No adenopathy. LUNGS: Moderate breath sounds. No rhonchi or wheezes. mildly course CARDIAC: Normal S1, S2. Regular rate and rhythm without murmurs, rubs, or gallops. ABDOMEN: Soft, nontender, and nondistended. no distention EXTREMITIES: No cyanosis, clubbing, or edema. NEUROLOGICAL: Grossly nonfocal and confused. reviewed and edited Laboratory Tests 12/23/17 07:50: Troponin I 0.000 12/24/17 07:05: White Blood Count [Pending], Red Blood Count [Pending], Hemoglobin [Pending], Hematocrit [Pending], Mean Corpuscular Volume [Pending], Mean Corpuscular Hemoglobin [Pending], Mean Corpuscular Hemoglobin Concent [Pending], Red Cell Distribution Width [Pending], Platelet Count [Pending], Mean Platelet Volume [ Pending], Neutrophils (%) (Auto) [Pending], Lymphocytes (%) (Auto) [Pending], Monocytes (%) (Auto) [Pending], Eosinophils (%) (Auto) [Pending], Basophils (%) (Auto) [Pending], Sodium Level [Pending], Potassium Level [Pending], Chloride Level [Pending], Carbon Dioxide Level [Pending], Blood Urea Nitrogen [Pending], Creatinine [Pending], Estimat Glomerular Filtration Rate [Pending], Glucose Level [Pending], Calcium Level [Pending], Total Bilirubin [Pending], Aspartate Amino Transf (AST/SGOT) [Pending], Alanine Aminotransferase (ALT/SGPT) [Pending] , Alkaline Phosphatase [Pending], Total Protein [Pending], Albumin [Pending], Globulin [Pending] Current Medications Medications (Trade) Dose Ordered Sig/Iram Route PRN Reason Start Time Stop Time Status Last Admin Dose Admin Acetaminophen (Tylenol) 500 mg Q4H PRN ORAL Mild Pain/Temp > 100.5 12/16/17 20:15 01/15/18 20:14 Acetaminophen (Tylenol) 650 mg Q4H PRN ORAL Fever/Headache/Mild Pain 12/16/17 20:15 01/15/18 20:14 12/23/17 05:25 Albuterol/ Ipratropium (Albuterol/ Ipratropium) 3 ml Q4H PRN HHN Shortness of Breath 12/22/17 15:00 12/27/17 14:59 12/22/17 15:00 Amlodipine Besylate (Norvasc) 10 mg DAILY ORAL 12/17/17 09:00 01/16/18 08:59 12/23/17 08:49 Cyanocobalamin (Vitamin B12) 100 mcg QHS SUBQ 12/16/17 21:00 01/15/18 20:59 12/23/17 21:34 Docusate Sodium (Colace) 250 mg TWICE A DAY NG 12/20/17 09:00 01/19/18 08:59 12/23/17 17:40 Doxazosin Mesylate (Cardura) 1 mg DAILY ORAL 12/17/17 09:00 01/16/18 08:59 12/23/17 08:42 Famotidine (Pepcid) 20 mg DAILY ORAL 12/17/17 09:00 01/16/18 08:59 12/23/17 08:42 Meropenem 1 gm/ Sodium Chloride 55 ml @ 110 mls/hr Q8HR IVPB 12/23/17 22:00 12/28/17 23:59 12/24/17 05:44 Multivitamins Therapeutic (Therapeutic Multivitamin) 1 ea DAILY ORAL 12/17/17 09:00 01/16/18 08:59 12/23/17 08:42 Ondansetron HCl (Zofran) 4 mg Q6H PRN IVP Nausea & Vomiting 12/16/17 20:15 01/15/18 20:14 Polyethylene Glycol (Miralax) 17 gm BEDTIME ORAL 12/21/17 21:00 01/20/18 20:59 12/23/17 21:34 Tamsulosin HCl (Flomax) 0.4 mg BEDTIME ORAL 12/16/17 21:00 01/15/18 20:59 12/23/17 21:34 Nakul Cisse MD December 24, 2017 07:35
[2017-12-24 07:42] LABS: BASOPHILS % (AUTO) 0.2 % (0.0-2.0); EOSINOPHILS % (AUTO) 0.2 % (0.0-3.0); HEMATOCRIT 28.8 % (42.0-52.0); HEMOGLOBIN 9.6 G/DL (14.2-18.0); LYMPHOCYTES % (AUTO) 9.6 % (20.0-45.0); MEAN CORPUSCULAR VOLUME 81 FL (80-99); MONOCYTES % (AUTO) 10.9 % (1.0-10.0); NEUTROPHILS % (AUTO) 79.1 % (45.0-75.0); PLATELET COUNT 361 K/UL (150-450); RED BLOOD COUNT 3.54 M/UL (4.70-6.10); RED CELL DISTRIBUTION WIDTH 15.5 % (11.6-14.8); WHITE BLOOD COUNT 5.9 K/UL (4.8-10.8)
[2017-12-24 07:55] LABS: ALANINE AMINOTRANSFERASE 45 U/L (12-78); ALBUMIN 2.2 G/DL (3.4-5.0); ALBUMIN/GLOBULIN RATIO 0.4 (1.0-2.7); ALKALINE PHOSPHATASE 187 U/L (46-116); ANION GAP 11 mmol/L (5-15); ASPARTATE AMINO TRANSFERASE 41 U/L (15-37); BILIRUBIN,TOTAL 0.5 MG/DL (0.2-1.0); BLOOD UREA NITROGEN 22 mg/dL (7-18); CARBON DIOXIDE 23 MMOL/L (21-32); CHLORIDE 100 MMOL/L (98-107); POTASSIUM 4.6 MMOL/L (3.5-5.1); SODIUM 133 MMOL/L (136-145)
[2017-12-24 08:00] VITALS: BP 122/67
--- NOTE | 2017-12-24 09:04 | General Progress Note ---
Assessment/Plan Problem List: (1) HTN (hypertension) ICD Codes: I10 - Essential (primary) hypertension SNOMED: 13889429 (2) BPH (benign prostatic hyperplasia) ICD Codes: N40.0 - Benign prostatic hyperplasia without lower urinary tract symptoms SNOMED: 048963612, 291842713 (3) Hyperlipidemia ICD Codes: E78.5 - Hyperlipidemia, unspecified SNOMED: 12348267 (4) Dementia ICD Codes: F03.90 - Unspecified dementia without behavioral disturbance SNOMED: 37189062 (5) Probable sepsis ICD Codes: A41.9 - Sepsis, unspecified organism SNOMED: 664690389 (6) Encephalopathy ICD Codes: G93.40 - Encephalopathy, unspecified SNOMED: 01588418 (7) Pneumonia ICD Codes: J18.9 - Pneumonia, unspecified organism SNOMED: 729658528 Status: stable, progressing Assessment/Plan iv abx follow up cultures gt feeds monitor h/h monitor for aspiration resp rx monitor cxr skin care dc pending pulm and id clearance d/w Subjective ROS Limited/Unobtainable: No Constitutional: Reports: malaise, weakness HEENT: Reports: no symptoms Cardiovascular: Reports: no symptoms Respiratory: Reports: cough, shortness of breath, sputum Gastrointestinal/Abdominal: Reports: difficulty swallowing Genitourinary: Reports: no symptoms Neurologic/Psychiatric: Reports: pre-existing deficit Endocrine: Reports: no symptoms Hematologic/Lymphatic: Reports: anemia Allergies: Coded Allergies: No Known Allergies (Unverified , 01/27/17) All Systems: reviewed and negative except above Subjective less tachycardic and sob. unable to complete mri. cannot lie flat or stay still. cxr yesterday with worsening infiltrates. weak and withdrawn. less congested Objective Last 24 Hour Vital Signs Date Time Temp Pulse Resp B/P (MAP) Pulse Ox O2 Delivery O2 Flow Rate FiO2 12/24/17 08:00 98.1 92 20 122/67 99 Nasal Cannula 2.0 98.1 12/24/17 07:38 98 Nasal Cannula 2.0 28 12/24/17 07:38 Nasal Cannula 2.0 28 12/24/17 04:00 99 12/24/17 04:00 98.2 89 23 131/66 98 Nasal Cannula 2.0 98.2 12/24/17 00:00 98.7 97 24 115/66 99 Nasal Cannula 2.0 98.7 12/24/17 00:00 90 12/23/17 20:00 101 12/23/17 20:00 98.6 99 20 112/63 96 Nasal Cannula 2.0 98.6 12/23/17 16:00 96 12/23/17 16:00 98.5 108 130/69 100 Nasal Cannula 2.0 98.5 12/23/17 13:41 101 116/70 100 Nasal Cannula 2.0 12/23/17 12:00 97.9 100 21 105/57 100 Nasal Cannula 2.0 100 97.9 12/23/17 12:00 96 Intake and Output 12/23/17 12/24/17 19:00 07:00 Intake Total 425 ml Balance 425 ml IV Total 55 ml Tube Feeding 310 ml Other 60 ml # Voids 1 2 Laboratory Tests 12/24/17 07:05: White Blood Count 5.9, Red Blood Count 3.54L, Hemoglobin 9.6L, Hematocrit 28.8L , Mean Corpuscular Volume 81, Mean Corpuscular Hemoglobin 27.1, Mean Corpuscular Hemoglobin Concent 33.3, Red Cell Distribution Width 15.5H, Platelet Count 361, Mean Platelet Volume 5.2L, Neutrophils (%) (Auto) 79.1H, Lymphocytes (%) (Auto) 9.6L, Monocytes (%) (Auto) 10.9H, Eosinophils (%) (Auto) 0.2, Basophils (%) (Auto) 0.2, Sodium Level 133L, Potassium Level 4.6, Chloride Level 100, Carbon Dioxide Level 23, Anion Gap 11, Blood Urea Nitrogen 22H, Creatinine 1.0, Estimat Glomerular Filtration Rate , Glucose Level 98, Calcium Level 9.0, Total Bilirubin 0.5, Aspartate Amino Transf (AST/SGOT) 41H, Alanine Aminotransferase (ALT/SGPT) 45, Alkaline Phosphatase 187H, Total Protein 7.4, Albumin 2.2L, Globulin 5.2, Albumin/Globulin Ratio 0.4L Height (Feet): 6 Height (Inches): 1.00 Weight (Pounds): 180 Objective General Appearance: WD/WN, alert Neck: supple Cardiovascular: regular rhythm Respiratory/Chest: lungs clear, normal breath sounds Abdomen: normal bowel sounds, non tender, soft Edema: no edema noted Arm (L), no edema noted Arm (R), no edema noted Leg (L), no edema noted Leg (R), no edema noted Pedal (L), no edema noted Pedal (R), no edema noted Generalized PUJA OLIVA December 24, 2017 09:04
[2017-12-24] MEDS: Doxazosin 1mg Tab ORAL SCH (09:39)
[2017-12-24] MEDS: Multivitamin w/Minerals tab ORAL SCH (09:39)
[2017-12-24] MEDS: Docusate 100mg/10ml Liq NG SCH ×2 (09:39→18:13)
--- NOTE | 2017-12-24 09:55 | Infectious Diseases Prog Note ---
Assessment/Plan Assessment/Plan A: Sepsis Pneumonia with Klebsiella & E. coli BPH Dementia VRE colonization Gastrostomy status Lactic acidosis Elevated transaminase P: Continue Meropenem will f/u cultures Subjective ROS Limited/Unobtainable: Yes Constitutional: Reports: other - doing better than yestyerday Allergies: Coded Allergies: No Known Allergies (Unverified , 01/27/17) Objective Vital Signs Last 24 Hour Vital Signs Date Time Temp Pulse Resp B/P (MAP) Pulse Ox O2 Delivery O2 Flow Rate FiO2 12/24/17 09:40 92 122/67 12/24/17 08:00 98.1 92 20 122/67 99 Nasal Cannula 2.0 98.1 12/24/17 07:38 98 Nasal Cannula 2.0 28 12/24/17 07:38 Nasal Cannula 2.0 28 12/24/17 04:00 99 12/24/17 04:00 98.2 89 23 131/66 98 Nasal Cannula 2.0 98.2 12/24/17 00:00 98.7 97 24 115/66 99 Nasal Cannula 2.0 98.7 12/24/17 00:00 90 12/23/17 20:00 101 12/23/17 20:00 98.6 99 20 112/63 96 Nasal Cannula 2.0 98.6 12/23/17 16:00 96 12/23/17 16:00 98.5 108 130/69 100 Nasal Cannula 2.0 98.5 12/23/17 13:41 101 116/70 100 Nasal Cannula 2.0 12/23/17 12:00 97.9 100 21 105/57 100 Nasal Cannula 2.0 100 97.9 12/23/17 12:00 96 Height (Feet): 6 Height (Inches): 1.00 Weight (Pounds): 180 General Appearance: cachetic HEENT: mucous membranes moist Respiratory/Chest: crackles/rales Cardiovascular: normal rate Abdomen: soft, non tender, other - GT feeding Extremities: no edema Skin: no rash Neurologic/Psychiatric: alert, responsive Musculoskeletal: atrophy Laboratory Tests Test 12/24/17 07:05 White Blood Count 5.9 K/UL (4.8-10.8) Red Blood Count 3.54 M/UL (4.70-6.10) L Hemoglobin 9.6 G/DL (14.2-18.0) L Hematocrit 28.8 % (42.0-52.0) L Mean Corpuscular Volume 81 FL (80-99) Mean Corpuscular Hemoglobin 27.1 PG (27.0-31.0) Mean Corpuscular Hemoglobin Concent 33.3 G/DL (32.0-36.0) Red Cell Distribution Width 15.5 % (11.6-14.8) H Platelet Count 361 K/UL (150-450) Mean Platelet Volume 5.2 FL (6.5-10.1) L Neutrophils (%) (Auto) 79.1 % (45.0-75.0) H Lymphocytes (%) (Auto) 9.6 % (20.0-45.0) L Monocytes (%) (Auto) 10.9 % (1.0-10.0) H Eosinophils (%) (Auto) 0.2 % (0.0-3.0) Basophils (%) (Auto) 0.2 % (0.0-2.0) Sodium Level 133 MMOL/L (136-145) L Potassium Level 4.6 MMOL/L (3.5-5.1) Chloride Level 100 MMOL/L (98-107) Carbon Dioxide Level 23 MMOL/L (21-32) Anion Gap 11 mmol/L (5-15) Blood Urea Nitrogen 22 mg/dL (7-18) H Creatinine 1.0 MG/DL (0.55-1.30) Estimat Glomerular Filtration Rate mL/min (>60) Glucose Level 98 MG/DL (74-106) Calcium Level 9.0 MG/DL (8.5-10.1) Total Bilirubin 0.5 MG/DL (0.2-1.0) Aspartate Amino Transf (AST/SGOT) 41 U/L (15-37) H Alanine Aminotransferase (ALT/SGPT) 45 U/L (12-78) Alkaline Phosphatase 187 U/L (46-116) H Total Protein 7.4 G/DL (6.4-8.2) Albumin 2.2 G/DL (3.4-5.0) L Globulin 5.2 g/dL Albumin/Globulin Ratio 0.4 (1.0-2.7) L Current Medications Medications (Trade) Dose Ordered Sig/Iram Route PRN Reason Start Time Stop Time Status Last Admin Dose Admin Acetaminophen (Tylenol) 500 mg Q4H PRN ORAL Mild Pain/Temp > 100.5 12/16/17 20:15 01/15/18 20:14 Acetaminophen (Tylenol) 650 mg Q4H PRN ORAL Fever/Headache/Mild Pain 12/16/17 20:15 01/15/18 20:14 12/23/17 05:25 Albuterol/ Ipratropium (Albuterol/ Ipratropium) 3 ml Q4H PRN HHN Shortness of Breath 12/22/17 15:00 12/27/17 14:59 12/22/17 15:00 Amlodipine Besylate (Norvasc) 10 mg DAILY ORAL 12/17/17 09:00 01/16/18 08:59 12/24/17 09:40 Cyanocobalamin (Vitamin B12) 100 mcg QHS SUBQ 12/16/17 21:00 01/15/18 20:59 12/23/17 21:34 Docusate Sodium (Colace) 250 mg TWICE A DAY NG 12/20/17 09:00 01/19/18 08:59 12/24/17 09:39 Doxazosin Mesylate (Cardura) 1 mg DAILY ORAL 12/17/17 09:00 01/16/18 08:59 12/24/17 09:39 Famotidine (Pepcid) 20 mg DAILY ORAL 12/17/17 09:00 01/16/18 08:59 12/24/17 09:39 Meropenem 1 gm/ Sodium Chloride 55 ml @ 110 mls/hr Q8HR IVPB 12/23/17 22:00 12/28/17 23:59 12/24/17 05:44 Multivitamins Therapeutic (Therapeutic Multivitamin) 1 ea DAILY ORAL 12/17/17 09:00 01/16/18 08:59 12/24/17 09:39 Ondansetron HCl (Zofran) 4 mg Q6H PRN IVP Nausea & Vomiting 12/16/17 20:15 01/15/18 20:14 Polyethylene Glycol (Miralax) 17 gm BEDTIME ORAL 12/21/17 21:00 01/20/18 20:59 12/23/17 21:34 Tamsulosin HCl (Flomax) 0.4 mg BEDTIME ORAL 12/16/17 21:00 01/15/18 20:59 12/23/17 21:34 STEFANI CONLEY December 24, 2017 09:55
[2017-12-24 12:00] VITALS: BP 121/70
[2017-12-24 16:00] VITALS: BP 112/76
[2017-12-24] MEDS ORDERED: Sterile Water Irrig 1000ml IRRIG ONE (16:08)
[2017-12-24] MEDS ORDERED: NS 500ML ONE (16:08)
[2017-12-24 20:00] VITALS: BP 98/59
[2017-12-24] MEDS: Tamsulosin 0.4mg cap ORAL SCH (21:00)
[2017-12-24] MEDS: Miralax 17gm pkt ORAL SCH (21:00)
[2017-12-24] MEDS: Vitamin B12 1000mcg/ml Inj SUBQ SCH (21:02)
[2017-12-24] MEDS: Meropenem 1 GM in NS 110 ML IVPB SCH (21:57)
--- NOTE | 2017-12-24 22:19 | General Progress Note ---
Assessment/Plan Assessment/Plan Assessment - Transient N/V with resultant aspiration - abnormal LFT - OBS - HTN - CVA - dysphagia, PEG - pneumobilia and s/p poonam on CT Recommendations - continue TF trial - check hepatitis serologies -- negative - Hold statin and re check LFT - follow labs Subjective Allergies: Coded Allergies: No Known Allergies (Unverified , 01/27/17) Subjective above noted NAD d/w RN tolerating TF no vomiting reported Objective Last 24 Hour Vital Signs Date Time Temp Pulse Resp B/P (MAP) Pulse Ox O2 Delivery O2 Flow Rate FiO2 12/24/17 21:52 100 Nasal Cannula 2.0 28 12/24/17 21:52 Nasal Cannula 2.0 28 12/24/17 16:00 97 12/24/17 16:00 98.7 95 20 112/76 99 Nasal Cannula 2.0 98.7 12/24/17 12:00 97.3 99 20 121/70 99 Nasal Cannula 2.0 97.3 12/24/17 12:00 92 12/24/17 09:40 92 122/67 12/24/17 08:00 96 12/24/17 08:00 98.1 92 20 122/67 99 Nasal Cannula 2.0 98.1 12/24/17 07:38 98 Nasal Cannula 2.0 28 12/24/17 07:38 Nasal Cannula 2.0 28 12/24/17 04:00 99 12/24/17 04:00 98.2 89 23 131/66 98 Nasal Cannula 2.0 98.2 12/24/17 00:00 98.7 97 24 115/66 99 Nasal Cannula 2.0 98.7 12/24/17 00:00 90 Intake and Output 12/23/17 12/24/17 19:00 07:00 Intake Total 425 ml Balance 425 ml IV Total 55 ml Tube Feeding 310 ml Other 60 ml # Voids 1 2 Laboratory Tests 12/24/17 07:05: White Blood Count 5.9, Red Blood Count 3.54L, Hemoglobin 9.6L, Hematocrit 28.8L , Mean Corpuscular Volume 81, Mean Corpuscular Hemoglobin 27.1, Mean Corpuscular Hemoglobin Concent 33.3, Red Cell Distribution Width 15.5H, Platelet Count 361, Mean Platelet Volume 5.2L, Neutrophils (%) (Auto) 79.1H, Lymphocytes (%) (Auto) 9.6L, Monocytes (%) (Auto) 10.9H, Eosinophils (%) (Auto) 0.2, Basophils (%) (Auto) 0.2, Sodium Level 133L, Potassium Level 4.6, Chloride Level 100, Carbon Dioxide Level 23, Anion Gap 11, Blood Urea Nitrogen 22H, Creatinine 1.0, Estimat Glomerular Filtration Rate , Glucose Level 98, Calcium Level 9.0, Total Bilirubin 0.5, Aspartate Amino Transf (AST/SGOT) 41H, Alanine Aminotransferase (ALT/SGPT) 45, Alkaline Phosphatase 187H, Total Protein 7.4, Albumin 2.2L, Globulin 5.2, Albumin/Globulin Ratio 0.4L Height (Feet): 6 Height (Inches): 1.00 Weight (Pounds): 180 Objective WDWN NCAT supple Chest Occ Ronchi RRR abd soft ND NT, GT OK no edema OBS Oli Amaya MD December 24, 2017 22:19
[2017-12-25] VITALS: BP 93/62
[2017-12-25 04:00] VITALS: BP 93/62
[2017-12-25] MEDS: Meropenem 1 GM in NS 110 ML IVPB SCH ×3 (06:08→21:14)
[2017-12-25 08:00] VITALS: BP 115/60
[2017-12-25] MEDS: Doxazosin 1mg Tab ORAL SCH (08:32)
[2017-12-25] MEDS: Docusate 100mg/10ml Liq NG SCH ×2 (08:32→17:30)
[2017-12-25] MEDS: Multivitamin w/Minerals tab ORAL SCH (08:33)
--- NOTE | 2017-12-25 09:12 | Pulmonology Progress Note ---
Assessment/Plan Assessment/Plan IMPRESSION: 1. Evidence of pneumonia, minimal infiltrates presently 2. Nausea. 3. Vomiting. 4. Hyperlipidemia. 5. Cerebrovascular accident. PLAN continue to monitor for change no significant change in exam respiratory care as is iv antibiotics as is cxr repeat ordered and reviewed oxygen as needed gt feeds aspiration precautions no need for CT chest at present; appears that infiltrates are clearing; repeat impression, plan, and exam edited and reviewed in detail care discussed with RN Subjective Allergies: Coded Allergies: No Known Allergies (Unverified , 01/27/17) Subjective awake and no distress no significant congestion imaging reviewed Objective Last 24 Hour Vital Signs Date Time Temp Pulse Resp B/P (MAP) Pulse Ox O2 Delivery O2 Flow Rate FiO2 12/25/17 08:34 100.0 12/25/17 08:32 121 115/60 12/25/17 08:04 Room Air 12/25/17 08:03 98 Room Air 21 12/25/17 08:00 100.0 121 20 115/60 99 Room Air 100.0 12/25/17 04:00 97.0 107 20 93/62 99 Nasal Cannula 2.0 97.0 12/25/17 04:00 117 12/25/17 00:00 101 12/25/17 00:00 97.9 104 20 93/62 99 Nasal Cannula 2.0 97.9 12/24/17 21:52 100 Nasal Cannula 2.0 28 12/24/17 21:52 Nasal Cannula 2.0 28 12/24/17 20:00 97.9 107 20 98/59 100 Nasal Cannula 2.0 97.9 12/24/17 20:00 95 12/24/17 16:00 97 12/24/17 16:00 98.7 95 20 112/76 99 Nasal Cannula 2.0 98.7 12/24/17 12:00 97.3 99 20 121/70 99 Nasal Cannula 2.0 97.3 12/24/17 12:00 92 12/24/17 09:40 92 122/67 Intake and Output 12/24/17 12/25/17 19:00 07:00 Intake Total 110 ml Output Total 400 ml Balance -290 ml IV Total 110 ml Output Urine Total 400 ml # Voids 3 Objective GENERAL: A well-developed male, NAD HEENT: Negative. Oropharynx is moist and clear NECK: Supple. No adenopathy. LUNGS: Moderate breath sounds. No rhonchi or wheezes. stable CARDIAC: Normal S1, S2. Regular rate and rhythm without murmurs, rubs, or gallops. ABDOMEN: Soft, nontender, and nondistended. no distention EXTREMITIES: No cyanosis, clubbing, or edema. NEUROLOGICAL: Grossly nonfocal and confused. reviewed and edited Current Medications Medications (Trade) Dose Ordered Sig/Iram Route PRN Reason Start Time Stop Time Status Last Admin Dose Admin Acetaminophen (Tylenol) 500 mg Q4H PRN ORAL Mild Pain/Temp > 100.5 12/16/17 20:15 01/15/18 20:14 Acetaminophen (Tylenol) 650 mg Q4H PRN ORAL Fever/Headache/Mild Pain 12/16/17 20:15 01/15/18 20:14 12/25/17 08:34 Albuterol/ Ipratropium (Albuterol/ Ipratropium) 3 ml Q4H PRN HHN Shortness of Breath 12/22/17 15:00 12/27/17 14:59 12/22/17 15:00 Amlodipine Besylate (Norvasc) 10 mg DAILY ORAL 12/17/17 09:00 01/16/18 08:59 12/25/17 08:32 Cyanocobalamin (Vitamin B12) 100 mcg QHS SUBQ 12/16/17 21:00 01/15/18 20:59 12/24/17 21:02 Docusate Sodium (Colace) 250 mg TWICE A DAY NG 12/20/17 09:00 01/19/18 08:59 12/25/17 08:32 Doxazosin Mesylate (Cardura) 1 mg DAILY ORAL 12/17/17 09:00 01/16/18 08:59 12/25/17 08:32 Famotidine (Pepcid) 20 mg DAILY ORAL 12/17/17 09:00 01/16/18 08:59 12/25/17 08:32 Meropenem 1 gm/ Sodium Chloride 110 ml @ 220 mls/hr Q8HR IVPB 12/24/17 22:00 12/28/17 23:59 12/25/17 06:08 Multivitamins Therapeutic (Therapeutic Multivitamin) 1 ea DAILY ORAL 12/17/17 09:00 01/16/18 08:59 12/25/17 08:33 Ondansetron HCl (Zofran) 4 mg Q6H PRN IVP Nausea & Vomiting 12/16/17 20:15 01/15/18 20:14 Polyethylene Glycol (Miralax) 17 gm BEDTIME ORAL 12/21/17 21:00 01/20/18 20:59 12/24/17 21:00 Tamsulosin HCl (Flomax) 0.4 mg BEDTIME ORAL 12/16/17 21:00 01/15/18 20:59 12/24/17 21:00 Nakul Cisse MD December 25, 2017 09:12
--- NOTE | 2017-12-25 10:52 | Infectious Diseases Prog Note ---
"Assessment/Plan Assessment/Plan antibiotics : meropenem A 1. klebsiella | e.coli pneumonia 2. respiratory failure 3. hypertension 4. rectal VRE colonization P 1. continue meropenem 5 more days 2. will follow up cultures Subjective ROS Limited/Unobtainable: Yes Allergies: Coded Allergies: No Known Allergies (Unverified , 01/27/17) Objective Vital Signs Last 24 Hour Vital Signs Date Time Temp Pulse Resp B/P (MAP) Pulse Ox O2 Delivery O2 Flow Rate FiO2 12/25/17 09:33 99.0 12/25/17 08:34 100.0 12/25/17 08:32 121 115/60 12/25/17 08:04 Room Air 12/25/17 08:03 98 Room Air 21 12/25/17 08:00 100.0 121 20 115/60 99 Room Air 100.0 12/25/17 04:00 97.0 107 20 93/62 99 Nasal Cannula 2.0 97.0 12/25/17 04:00 117 12/25/17 00:00 101 12/25/17 00:00 97.9 104 20 93/62 99 Nasal Cannula 2.0 97.9 12/24/17 21:52 100 Nasal Cannula 2.0 28 12/24/17 21:52 Nasal Cannula 2.0 28 12/24/17 20:00 97.9 107 20 98/59 100 Nasal Cannula 2.0 97.9 12/24/17 20:00 95 12/24/17 16:00 97 12/24/17 16:00 98.7 95 20 112/76 99 Nasal Cannula 2.0 98.7 12/24/17 12:00 97.3 99 20 121/70 99 Nasal Cannula 2.0 97.3 12/24/17 12:00 92 Height (Feet): 6 Height (Inches): 1.00 Weight (Pounds): 180 Respiratory/Chest: lungs clear Cardiovascular: normal rate, regular rhythm, no gallop/murmur Abdomen: soft, non tender, other - GT Extremities: no edema Current Medications Medications (Trade) Dose Ordered Sig/Iram Route PRN Reason Start Time Stop Time Status Last Admin Dose Admin Acetaminophen (Tylenol) 500 mg Q4H PRN ORAL Mild Pain/Temp > 100.5 12/16/17 20:15 01/15/18 20:14 Acetaminophen (Tylenol) 650 mg Q4H PRN ORAL Fever/Headache/Mild Pain 12/16/17 20:15 01/15/18 20:14 12/25/17 08:34 Albuterol/ Ipratropium (Albuterol/ Ipratropium) 3 ml Q4H PRN HHN Shortness of Breath 12/22/17 15:00 12/27/17 14:59 12/22/17 15:00 Amlodipine Besylate (Norvasc) 10 mg DAILY ORAL 12/17/17 09:00 01/16/18 08:59 12/25/17 08:32 Cyanocobalamin (Vitamin B12) 100 mcg QHS SUBQ 12/16/17 21:00 01/15/18 20:59 12/24/17 21:02 Docusate Sodium (Colace) 250 mg TWICE A DAY NG 12/20/17 09:00 01/19/18 08:59 12/25/17 08:32 Doxazosin Mesylate (Cardura) 1 mg DAILY ORAL 12/17/17 09:00 01/16/18 08:59 12/25/17 08:32 Famotidine (Pepcid) 20 mg DAILY ORAL 12/17/17 09:00 01/16/18 08:59 12/25/17 08:32 Meropenem 1 gm/ Sodium Chloride 110 ml @ 220 mls/hr Q8HR IVPB 12/24/17 22:00 12/28/17 23:59 12/25/17 06:08 Multivitamins Therapeutic (Therapeutic Multivitamin) 1 ea DAILY ORAL 12/17/17 09:00 01/16/18 08:59 12/25/17 08:33 Ondansetron HCl (Zofran) 4 mg Q6H PRN IVP Nausea & Vomiting 12/16/17 20:15 01/15/18 20:14 Polyethylene Glycol (Miralax) 17 gm BEDTIME ORAL 12/21/17 21:00 01/20/18 20:59 12/24/17 21:00 Tamsulosin HCl (Flomax) 0.4 mg BEDTIME ORAL 12/16/17 21:00 01/15/18 20:59 12/24/17 21:00 RENÉE RICHARDSON December 25, 2017 10:51"
--- NOTE | 2017-12-25 10:59 | General Progress Note ---
Assessment/Plan Problem List: (1) HTN (hypertension) ICD Codes: I10 - Essential (primary) hypertension SNOMED: 32210087 (2) BPH (benign prostatic hyperplasia) ICD Codes: N40.0 - Benign prostatic hyperplasia without lower urinary tract symptoms SNOMED: 453233763, 515408194 (3) Hyperlipidemia ICD Codes: E78.5 - Hyperlipidemia, unspecified SNOMED: 59416736 (4) Dementia ICD Codes: F03.90 - Unspecified dementia without behavioral disturbance SNOMED: 73036965 (5) Probable sepsis ICD Codes: A41.9 - Sepsis, unspecified organism SNOMED: 809393191 (6) Encephalopathy ICD Codes: G93.40 - Encephalopathy, unspecified SNOMED: 46494546 (7) Pneumonia ICD Codes: J18.9 - Pneumonia, unspecified organism SNOMED: 326087826 Status: stable, not improved Assessment/Plan iv abx follow up cultures gt feeds monitor h/h monitor for aspiration resp rx monitor cxr skin care laxatives increased not stable for dc with fever and tachycardia dc pending pulm and id clearance d/w Subjective ROS Limited/Unobtainable: No Constitutional: Reports: fever, malaise, weakness HEENT: Reports: no symptoms Cardiovascular: Reports: no symptoms Respiratory: Reports: cough Gastrointestinal/Abdominal: Reports: constipated, difficulty swallowing Genitourinary: Reports: no symptoms Neurologic/Psychiatric: Reports: pre-existing deficit Endocrine: Reports: no symptoms Hematologic/Lymphatic: Reports: anemia Allergies: Coded Allergies: No Known Allergies (Unverified , 01/27/17) All Systems: reviewed and negative except above Subjective tachycardic and febrile. c/o constipation, confused. answers questions but weak. Objective Last 24 Hour Vital Signs Date Time Temp Pulse Resp B/P (MAP) Pulse Ox O2 Delivery O2 Flow Rate FiO2 12/25/17 09:33 99.0 12/25/17 08:34 100.0 12/25/17 08:32 121 115/60 12/25/17 08:04 Room Air 12/25/17 08:03 98 Room Air 21 12/25/17 08:00 100.0 121 20 115/60 99 Room Air 100.0 12/25/17 04:00 97.0 107 20 93/62 99 Nasal Cannula 2.0 97.0 12/25/17 04:00 117 5/23/18 00:00 101 12/25/17 00:00 97.9 104 20 93/62 99 Nasal Cannula 2.0 97.9 12/24/17 21:52 100 Nasal Cannula 2.0 28 12/24/17 21:52 Nasal Cannula 2.0 28 12/24/17 20:00 97.9 107 20 98/59 100 Nasal Cannula 2.0 97.9 12/24/17 20:00 95 12/24/17 16:00 97 12/24/17 16:00 98.7 95 20 112/76 99 Nasal Cannula 2.0 98.7 12/24/17 12:00 97.3 99 20 121/70 99 Nasal Cannula 2.0 97.3 12/24/17 12:00 92 Intake and Output 12/24/17 12/25/17 19:00 07:00 Intake Total 110 ml Output Total 400 ml Balance -290 ml IV Total 110 ml Output Urine Total 400 ml # Voids 3 Height (Feet): 6 Height (Inches): 1.00 Weight (Pounds): 180 Objective General Appearance: WD/WN, alert Neck: supple Cardiovascular: regular rhythm Respiratory/Chest: lungs clear, normal breath sounds Abdomen: normal bowel sounds, non tender, soft Edema: no edema noted Arm (L), no edema noted Arm (R), no edema noted Leg (L), no edema noted Leg (R), no edema noted Pedal (L), no edema noted Pedal (R), no edema noted Generalized PUJA OLIVA December 25, 2017 10:59
[2017-12-25] MEDS ORDERED: Lactulose 20gm/30ml UDC ORAL PRN (11:00)
[2017-12-25 12:00] VITALS: BP 104/59
[2017-12-25 16:00] VITALS: BP 109/65
[2017-12-25 20:00] VITALS: BP 104/55
[2017-12-25] MEDS: Tamsulosin 0.4mg cap ORAL SCH (21:03)
[2017-12-25] MEDS: Miralax 17gm pkt ORAL SCH (21:03)
[2017-12-25] MEDS: Vitamin B12 1000mcg/ml Inj SUBQ SCH (21:04)
--- NOTE | 2017-12-25 21:22 | General Progress Note ---
Assessment/Plan Assessment/Plan Assessment - Transient N/V with resultant aspiration - abnormal LFT - ? etiology - OBS - HTN - CVA - dysphagia, PEG - pneumobilia and s/p poonam on CT Recommendations - continue TF trial - check hepatitis serologies -- negative - Hold statin and re check LFT - check MRCP - follow labs Subjective Allergies: Coded Allergies: No Known Allergies (Unverified , 01/27/17) Subjective above noted NAD d/w RN low grade fever noted no vomiting reported Objective Last 24 Hour Vital Signs Date Time Temp Pulse Resp B/P (MAP) Pulse Ox O2 Delivery O2 Flow Rate FiO2 12/25/17 20:00 99.5 115 22 104/55 96 Room Air 99.5 12/25/17 19:35 108 18 Room Air 21 12/25/17 19:34 Room Air 12/25/17 19:34 97 Room Air 21 12/25/17 16:00 100 12/25/17 16:00 98.8 110 20 109/65 99 Room Air 98.8 12/25/17 12:00 97.7 101 20 104/59 97 Room Air 97.7 12/25/17 12:00 104 12/25/17 09:33 99.0 12/25/17 08:34 100.0 12/25/17 08:32 121 115/60 12/25/17 08:04 Room Air 12/25/17 08:03 98 Room Air 21 12/25/17 08:00 108 12/25/17 08:00 100.0 121 20 115/60 99 Room Air 100.0 12/25/17 04:00 97.0 107 20 93/62 99 Nasal Cannula 2.0 97.0 12/25/17 04:00 117 12/25/17 00:00 101 12/25/17 00:00 97.9 104 20 93/62 99 Nasal Cannula 2.0 97.9 12/24/17 21:52 100 Nasal Cannula 2.0 28 12/24/17 21:52 Nasal Cannula 2.0 28 Intake and Output 12/24/17 12/25/17 19:00 07:00 Intake Total 110 ml Output Total 400 ml Balance -290 ml IV Total 110 ml Output Urine Total 400 ml # Voids 3 Height (Feet): 6 Height (Inches): 1.00 Weight (Pounds): 180 Objective WDWN NCAT supple Chest Occ Ronchi RRR abd soft ND NT, GT OK no edema OBS Oli Amaya MD December 25, 2017 21:22
[2017-12-26] VITALS: BP 119/79
[2017-12-26 04:00] VITALS: BP 132/73
[2017-12-26] MEDS: Meropenem 1 GM in NS 110 ML IVPB SCH ×3 (05:35→21:17)
[2017-12-26 08:00] VITALS: BP 120/64
--- NOTE | 2017-12-26 08:04 | Pulmonology Progress Note ---
Assessment/Plan Assessment/Plan IMPRESSION: 1. Evidence of pneumonia, minimal infiltrates presently 2. Nausea. 3. Vomiting. 4. Hyperlipidemia. 5. Cerebrovascular accident. PLAN continue to monitor for change no significant change in exam respiratory care as is care noted CXR pending today oxygen as needed gt feeds impression, plan, and exam edited and reviewed in detail care discussed with RN Subjective Allergies: Coded Allergies: No Known Allergies (Unverified , 01/27/17) Subjective awake and no distress care noted imaging reviewed Objective Last 24 Hour Vital Signs Date Time Temp Pulse Resp B/P (MAP) Pulse Ox O2 Delivery O2 Flow Rate FiO2 12/26/17 04:00 97 12/26/17 04:00 98.3 101 23 132/73 98 Room Air 98.3 12/26/17 00:00 99.0 119 23 119/79 100 Room Air 99.0 12/26/17 00:00 103 12/25/17 20:00 99.5 115 22 104/55 96 Room Air 99.5 12/25/17 20:00 118 12/25/17 19:35 108 18 Room Air 21 12/25/17 19:34 Room Air 12/25/17 19:34 97 Room Air 21 12/25/17 16:00 100 12/25/17 16:00 98.8 110 20 109/65 99 Room Air 98.8 12/25/17 12:00 97.7 101 20 104/59 97 Room Air 97.7 12/25/17 12:00 104 12/25/17 09:33 99.0 12/25/17 08:34 100.0 12/25/17 08:32 121 115/60 12/25/17 08:04 Room Air 12/25/17 08:03 98 Room Air 21 Intake and Output 12/25/17 12/26/17 19:00 07:00 Intake Total 172 ml 992 ml Balance 172 ml 992 ml Free Water 90 ml IV Total 110 ml 220 ml Tube Feeding 62 ml 682 ml # Voids 3 2 # Bowel Movements 1 Objective GENERAL: A well-developed male, NAD HEENT: Negative. Oropharynx is moist and clear NECK: Supple. No adenopathy. LUNGS: Moderate breath sounds. No rhonchi or wheezes. stable CARDIAC: Normal S1, S2. Regular rate and rhythm without murmurs, rubs, or gallops. ABDOMEN: Soft, nontender, and nondistended. no distention EXTREMITIES: No cyanosis, clubbing, or edema. NEUROLOGICAL: Grossly nonfocal and confused. reviewed and edited Current Medications Medications (Trade) Dose Ordered Sig/Iram Route PRN Reason Start Time Stop Time Status Last Admin Dose Admin Acetaminophen (Tylenol) 500 mg Q4H PRN ORAL Mild Pain/Temp > 100.5 12/16/17 20:15 01/15/18 20:14 Acetaminophen (Tylenol) 650 mg Q4H PRN ORAL Fever/Headache/Mild Pain 12/16/17 20:15 01/15/18 20:14 12/25/17 08:34 Albuterol/ Ipratropium (Albuterol/ Ipratropium) 3 ml Q4H PRN HHN Shortness of Breath 12/22/17 15:00 12/27/17 14:59 12/22/17 15:00 Amlodipine Besylate (Norvasc) 10 mg DAILY ORAL 12/17/17 09:00 01/16/18 08:59 12/25/17 08:32 Cyanocobalamin (Vitamin B12) 100 mcg QHS SUBQ 12/16/17 21:00 01/15/18 20:59 12/25/17 21:04 Docusate Sodium (Colace) 250 mg TWICE A DAY NG 12/20/17 09:00 01/19/18 08:59 12/25/17 17:30 Doxazosin Mesylate (Cardura) 1 mg DAILY ORAL 12/17/17 09:00 01/16/18 08:59 12/25/17 08:32 Famotidine (Pepcid) 20 mg DAILY ORAL 12/17/17 09:00 01/16/18 08:59 12/25/17 08:32 Lactulose (Cephulac) 30 gm Q8H PRN ORAL Constipation 12/25/17 11:00 01/24/18 10:59 Meropenem 1 gm/ Sodium Chloride 110 ml @ 220 mls/hr Q8HR IVPB 12/24/17 22:00 12/28/17 23:59 12/26/17 05:35 Multivitamins Therapeutic (Therapeutic Multivitamin) 1 ea DAILY ORAL 12/17/17 09:00 01/16/18 08:59 12/25/17 08:33 Ondansetron HCl (Zofran) 4 mg Q6H PRN IVP Nausea & Vomiting 12/16/17 20:15 01/15/18 20:14 Polyethylene Glycol (Miralax) 17 gm BEDTIME ORAL 12/21/17 21:00 01/20/18 20:59 12/25/17 21:03 Tamsulosin HCl (Flomax) 0.4 mg BEDTIME ORAL 12/16/17 21:00 01/15/18 20:59 12/25/17 21:03 Nakul Cisse MD December 26, 2017 08:04
[2017-12-26 09:57] LABS: BASOPHILS % (AUTO) 0.4 % (0.0-2.0); HEMATOCRIT 30.9 % (42.0-52.0); HEMOGLOBIN 10.2 G/DL (14.2-18.0); LYMPHOCYTES % (AUTO) 7.8 % (20.0-45.0); MEAN CORPUSCULAR VOLUME 82 FL (80-99); MONOCYTES % (AUTO) 11.5 % (1.0-10.0); NEUTROPHILS % (AUTO) 80.3 % (45.0-75.0); PLATELET COUNT 435 K/UL (150-450); RED BLOOD COUNT 3.77 M/UL (4.70-6.10); RED CELL DISTRIBUTION WIDTH 15.5 % (11.6-14.8); WHITE BLOOD COUNT 6.6 K/UL (4.8-10.8)
[2017-12-26] MEDS: Multivitamin w/Minerals tab ORAL SCH (10:00)
[2017-12-26] MEDS: Docusate 100mg/10ml Liq NG SCH ×2 (10:00→18:41)
[2017-12-26] MEDS: Doxazosin 1mg Tab ORAL SCH (10:00)
[2017-12-26 10:08] LABS: ALANINE AMINOTRANSFERASE 39 U/L (12-78); ALBUMIN 2.2 G/DL (3.4-5.0); ALBUMIN/GLOBULIN RATIO 0.4 (1.0-2.7); ALKALINE PHOSPHATASE 213 U/L (46-116); ANION GAP 7 mmol/L (5-15); ASPARTATE AMINO TRANSFERASE 36 U/L (15-37); BILIRUBIN,TOTAL 0.4 MG/DL (0.2-1.0); BLOOD UREA NITROGEN 29 mg/dL (7-18); CALCIUM 9.1 MG/DL (8.5-10.1); CARBON DIOXIDE 26 MMOL/L (21-32); CHLORIDE 104 MMOL/L (98-107); CREATININE 0.9 MG/DL (0.55-1.30); POTASSIUM 4.1 MMOL/L (3.5-5.1); SODIUM 137 MMOL/L (136-145)
--- NOTE | 2017-12-26 10:46 | Infectious Diseases Prog Note ---
Assessment/Plan Assessment/Plan A: Sepsis Pneumonia with Klebsiella & E. coli BPH Dementia VRE colonization Gastrostomy status Lactic acidosis resolved Elevated transaminase P: Continue Meropenem X 4 days will f/u cultures Subjective ROS Limited/Unobtainable: Yes Neurologic: Reports: confusion Allergies: Coded Allergies: No Known Allergies (Unverified , 01/27/17) Objective Vital Signs Last 24 Hour Vital Signs Date Time Temp Pulse Resp B/P (MAP) Pulse Ox O2 Delivery O2 Flow Rate FiO2 12/26/17 09:59 108 120/64 12/26/17 08:00 99.7 108 21 120/64 98 Room Air 99.7 12/26/17 04:00 97 12/26/17 04:00 98.3 101 23 132/73 98 Room Air 98.3 12/26/17 00:00 99.0 119 23 119/79 100 Room Air 99.0 12/26/17 00:00 103 12/25/17 20:00 99.5 115 22 104/55 96 Room Air 99.5 12/25/17 20:00 118 12/25/17 19:35 108 18 Room Air 21 12/25/17 19:34 Room Air 12/25/17 19:34 97 Room Air 21 12/25/17 16:00 100 12/25/17 16:00 98.8 110 20 109/65 99 Room Air 98.8 12/25/17 12:00 97.7 101 20 104/59 97 Room Air 97.7 12/25/17 12:00 104 Height (Feet): 6 Height (Inches): 1.00 Weight (Pounds): 180 General Appearance: no acute distress, cachetic HEENT: mucous membranes moist Respiratory/Chest: lungs clear Cardiovascular: normal rate, tachycardia Abdomen: soft, non tender, other - GT feeding Extremities: no edema Neurologic/Psychiatric: disoriented Laboratory Tests Test 12/26/17 09:40 White Blood Count 6.6 K/UL (4.8-10.8) Red Blood Count 3.77 M/UL (4.70-6.10) L Hemoglobin 10.2 G/DL (14.2-18.0) L Hematocrit 30.9 % (42.0-52.0) L Mean Corpuscular Volume 82 FL (80-99) Mean Corpuscular Hemoglobin 27.2 PG (27.0-31.0) Mean Corpuscular Hemoglobin Concent 33.1 G/DL (32.0-36.0) Red Cell Distribution Width 15.5 % (11.6-14.8) H Platelet Count 435 K/UL (150-450) Mean Platelet Volume 5.0 FL (6.5-10.1) L Neutrophils (%) (Auto) 80.3 % (45.0-75.0) H Lymphocytes (%) (Auto) 7.8 % (20.0-45.0) L Monocytes (%) (Auto) 11.5 % (1.0-10.0) H Eosinophils (%) (Auto) 0.0 % (0.0-3.0) Basophils (%) (Auto) 0.4 % (0.0-2.0) Sodium Level 137 MMOL/L (136-145) Potassium Level 4.1 MMOL/L (3.5-5.1) Chloride Level 104 MMOL/L (98-107) Carbon Dioxide Level 26 MMOL/L (21-32) Anion Gap 7 mmol/L (5-15) Blood Urea Nitrogen 29 mg/dL (7-18) H Creatinine 0.9 MG/DL (0.55-1.30) Estimat Glomerular Filtration Rate mL/min (>60) Glucose Level 162 MG/DL (74-106) H Calcium Level 9.1 MG/DL (8.5-10.1) Total Bilirubin 0.4 MG/DL (0.2-1.0) Aspartate Amino Transf (AST/SGOT) 36 U/L (15-37) Alanine Aminotransferase (ALT/SGPT) 39 U/L (12-78) Alkaline Phosphatase 213 U/L (46-116) H Total Protein 7.5 G/DL (6.4-8.2) Albumin 2.2 G/DL (3.4-5.0) L Globulin 5.3 g/dL Albumin/Globulin Ratio 0.4 (1.0-2.7) L Current Medications Medications (Trade) Dose Ordered Sig/Iram Route PRN Reason Start Time Stop Time Status Last Admin Dose Admin Acetaminophen (Tylenol) 500 mg Q4H PRN ORAL Mild Pain/Temp > 100.5 12/16/17 20:15 01/15/18 20:14 Acetaminophen (Tylenol) 650 mg Q4H PRN ORAL Fever/Headache/Mild Pain 12/16/17 20:15 01/15/18 20:14 12/25/17 08:34 Albuterol/ Ipratropium (Albuterol/ Ipratropium) 3 ml Q4H PRN HHN Shortness of Breath 12/22/17 15:00 12/27/17 14:59 12/22/17 15:00 Amlodipine Besylate (Norvasc) 10 mg DAILY ORAL 12/17/17 09:00 01/16/18 08:59 12/26/17 09:59 Cyanocobalamin (Vitamin B12) 100 mcg QHS SUBQ 12/16/17 21:00 01/15/18 20:59 12/25/17 21:04 Docusate Sodium (Colace) 250 mg TWICE A DAY NG 12/20/17 09:00 01/19/18 08:59 12/26/17 10:00 Doxazosin Mesylate (Cardura) 1 mg DAILY ORAL 12/17/17 09:00 01/16/18 08:59 12/26/17 10:00 Famotidine (Pepcid) 20 mg DAILY ORAL 12/17/17 09:00 01/16/18 08:59 12/26/17 10:00 Lactulose (Cephulac) 30 gm Q8H PRN ORAL Constipation 12/25/17 11:00 01/24/18 10:59 Meropenem 1 gm/ Sodium Chloride 110 ml @ 220 mls/hr Q8HR IVPB 12/24/17 22:00 12/28/17 23:59 12/26/17 05:35 Multivitamins Therapeutic (Therapeutic Multivitamin) 1 ea DAILY ORAL 12/17/17 09:00 01/16/18 08:59 12/26/17 10:00 Ondansetron HCl (Zofran) 4 mg Q6H PRN IVP Nausea & Vomiting 12/16/17 20:15 01/15/18 20:14 Polyethylene Glycol (Miralax) 17 gm BEDTIME ORAL 12/21/17 21:00 01/20/18 20:59 12/25/17 21:03 Tamsulosin HCl (Flomax) 0.4 mg BEDTIME ORAL 12/16/17 21:00 01/15/18 20:59 12/25/17 21:03 STEFANI CONLEY December 26, 2017 10:46
--- NOTE | 2017-12-26 11:12 | General Progress Note ---
Assessment/Plan Problem List: (1) HTN (hypertension) ICD Codes: I10 - Essential (primary) hypertension SNOMED: 87223335 (2) BPH (benign prostatic hyperplasia) ICD Codes: N40.0 - Benign prostatic hyperplasia without lower urinary tract symptoms SNOMED: 381092176, 176296669 (3) Hyperlipidemia ICD Codes: E78.5 - Hyperlipidemia, unspecified SNOMED: 59697285 (4) Dementia ICD Codes: F03.90 - Unspecified dementia without behavioral disturbance SNOMED: 86206779 (5) Probable sepsis ICD Codes: A41.9 - Sepsis, unspecified organism SNOMED: 177880670 (6) Encephalopathy ICD Codes: G93.40 - Encephalopathy, unspecified SNOMED: 86675935 (7) Pneumonia ICD Codes: J18.9 - Pneumonia, unspecified organism SNOMED: 526599243 Status: stable Assessment/Plan iv abx gt feeds monitor h/h monitor for aspiration resp rx monitor cxr- pending for today skin care laxatives increased dc pending pulm and id clearance d/w Subjective ROS Limited/Unobtainable: No Constitutional: Reports: malaise, weakness HEENT: Reports: no symptoms Cardiovascular: Reports: no symptoms Respiratory: Reports: cough Gastrointestinal/Abdominal: Reports: difficulty swallowing Neurologic/Psychiatric: Reports: pre-existing deficit Endocrine: Reports: no symptoms Hematologic/Lymphatic: Reports: no symptoms Allergies: Coded Allergies: No Known Allergies (Unverified , 01/27/17) All Systems: reviewed and negative except above Subjective tachycardic and febrile. c/o constipation, confused. answers questions but weak. cxr pending for today. on abx. Objective Last 24 Hour Vital Signs Date Time Temp Pulse Resp B/P (MAP) Pulse Ox O2 Delivery O2 Flow Rate FiO2 12/26/17 09:59 108 120/64 12/26/17 09:45 96 Room Air 21 12/26/17 09:45 105 18 Room Air 21 12/26/17 09:45 Room Air 12/26/17 08:00 99.7 108 21 120/64 98 Room Air 99.7 12/26/17 08:00 113 12/26/17 04:00 97 12/26/17 04:00 98.3 101 23 132/73 98 Room Air 98.3 12/26/17 00:00 99.0 119 23 119/79 100 Room Air 99.0 12/26/17 00:00 103 12/25/17 20:00 99.5 115 22 104/55 96 Room Air 99.5 12/25/17 20:00 118 12/25/17 19:35 108 18 Room Air 21 12/25/17 19:34 Room Air 12/25/17 19:34 97 Room Air 21 12/25/17 16:00 100 12/25/17 16:00 98.8 110 20 109/65 99 Room Air 98.8 12/25/17 12:00 97.7 101 20 104/59 97 Room Air 97.7 12/25/17 12:00 104 Intake and Output 12/25/17 12/26/17 19:00 07:00 Intake Total 172 ml 992 ml Balance 172 ml 992 ml Free Water 90 ml IV Total 110 ml 220 ml Tube Feeding 62 ml 682 ml # Voids 3 2 # Bowel Movements 1 Laboratory Tests 12/26/17 09:40: White Blood Count 6.6, Red Blood Count 3.77L, Hemoglobin 10.2L, Hematocrit 30.9L , Mean Corpuscular Volume 82, Mean Corpuscular Hemoglobin 27.2, Mean Corpuscular Hemoglobin Concent 33.1, Red Cell Distribution Width 15.5H, Platelet Count 435, Mean Platelet Volume 5.0L, Neutrophils (%) (Auto) 80.3H, Lymphocytes (%) (Auto) 7.8L, Monocytes (%) (Auto) 11.5H, Eosinophils (%) (Auto) 0.0, Basophils (%) (Auto) 0.4, Sodium Level 137, Potassium Level 4.1, Chloride Level 104, Carbon Dioxide Level 26, Anion Gap 7, Blood Urea Nitrogen 29H, Creatinine 0.9, Estimat Glomerular Filtration Rate , Glucose Level 162H, Calcium Level 9.1, Total Bilirubin 0.4, Aspartate Amino Transf (AST/SGOT) 36, Alanine Aminotransferase (ALT/SGPT) 39, Alkaline Phosphatase 213H, Total Protein 7.5, Albumin 2.2L, Globulin 5.3, Albumin/Globulin Ratio 0.4L Height (Feet): 6 Height (Inches): 1.00 Weight (Pounds): 180 Objective General Appearance: WD/WN, alert Neck: supple Cardiovascular: regular rhythm Respiratory/Chest: lungs clear, normal breath sounds Abdomen: normal bowel sounds, non tender, soft Edema: no edema noted Arm (L), no edema noted Arm (R), no edema noted Leg (L), no edema noted Leg (R), no edema noted Pedal (L), no edema noted Pedal (R), no edema noted Generalized PUJA OLIVA December 26, 2017 11:12
--- NOTE | 2017-12-26 11:18 | Diagnostic Imaging Report ---
Indication: Dyspnea Comparison: 12/23/2017 A single view chest radiograph was obtained. Findings: There is a suspected small infiltrate at the left lung base. Heart is normal in size. IMPRESSION: Suspected mild left basal infiltrate. Correlate clinically
[2017-12-26 12:00] VITALS: BP 106/60
[2017-12-26 16:10] VITALS: BP 134/52
[2017-12-26 20:00] VITALS: BP 107/62
[2017-12-26] MEDS: Vitamin B12 1000mcg/ml Inj SUBQ SCH (21:17)
[2017-12-26] MEDS: Tamsulosin 0.4mg cap ORAL SCH (21:17)
[2017-12-26] MEDS: Miralax 17gm pkt ORAL SCH (21:18)
--- NOTE | 2017-12-26 22:55 | General Progress Note ---
Assessment/Plan Assessment/Plan Assessment - Transient N/V with resultant aspiration - abnormal LFT - ? etiology - improved - OBS - HTN - CVA - dysphagia, PEG - pneumobilia and s/p poonam on CT Recommendations - continue TF trial - check hepatitis serologies -- negative - Hold statin and re check LFT - check MRCP - follow labs - increase TF rate Subjective Allergies: Coded Allergies: No Known Allergies (Unverified , 01/27/17) Subjective above noted NAD d/w family they request increased feed rate to promote weight gain Objective Last 24 Hour Vital Signs Date Time Temp Pulse Resp B/P (MAP) Pulse Ox O2 Delivery O2 Flow Rate FiO2 12/26/17 21:37 103 18 Room Air 21 12/26/17 21:37 97 Room Air 21 12/26/17 21:37 Room Air 12/26/17 16:10 98.2 105 21 134/52 97 Room Air 98.2 12/26/17 16:00 95 12/26/17 12:00 114 12/26/17 12:00 97.9 107 21 106/60 98 Room Air 97.9 12/26/17 11:40 99.7 12/26/17 09:59 108 120/64 12/26/17 09:45 96 Room Air 21 12/26/17 09:45 105 18 Room Air 21 12/26/17 09:45 Room Air 12/26/17 08:00 99.7 108 21 120/64 98 Room Air 99.7 12/26/17 08:00 113 12/26/17 04:00 97 12/26/17 04:00 98.3 101 23 132/73 98 Room Air 98.3 12/26/17 00:00 99.0 119 23 119/79 100 Room Air 99.0 12/26/17 00:00 103 Intake and Output 12/25/17 12/26/17 19:00 07:00 Intake Total 172 ml 992 ml Balance 172 ml 992 ml Free Water 90 ml IV Total 110 ml 220 ml Tube Feeding 62 ml 682 ml # Voids 3 2 # Bowel Movements 1 Laboratory Tests 12/26/17 09:40: White Blood Count 6.6, Red Blood Count 3.77L, Hemoglobin 10.2L, Hematocrit 30.9L , Mean Corpuscular Volume 82, Mean Corpuscular Hemoglobin 27.2, Mean Corpuscular Hemoglobin Concent 33.1, Red Cell Distribution Width 15.5H, Platelet Count 435, Mean Platelet Volume 5.0L, Neutrophils (%) (Auto) 80.3H, Lymphocytes (%) (Auto) 7.8L, Monocytes (%) (Auto) 11.5H, Eosinophils (%) (Auto) 0.0, Basophils (%) (Auto) 0.4, Sodium Level 137, Potassium Level 4.1, Chloride Level 104, Carbon Dioxide Level 26, Anion Gap 7, Blood Urea Nitrogen 29H, Creatinine 0.9, Estimat Glomerular Filtration Rate , Glucose Level 162H, Calcium Level 9.1, Total Bilirubin 0.4, Aspartate Amino Transf (AST/SGOT) 36, Alanine Aminotransferase (ALT/SGPT) 39, Alkaline Phosphatase 213H, Total Protein 7.5, Albumin 2.2L, Globulin 5.3, Albumin/Globulin Ratio 0.4L Height (Feet): 6 Height (Inches): 1.00 Weight (Pounds): 180 Objective WDWN NCAT supple Chest Occ Ronchi RRR abd soft ND NT, GT OK no edema OBS Oli Amaya MD December 26, 2017 22:55
[2017-12-27 04:00] VITALS: BP 122/65
[2017-12-27] MEDS: Meropenem 1 GM in NS 110 ML IVPB SCH (05:11)
[2017-12-27 08:00] VITALS: BP 112/65
--- NOTE | 2017-12-27 08:15 | Pulmonology Progress Note ---
Assessment/Plan Assessment/Plan IMPRESSION: 1. Evidence of pneumonia, minimal infiltrates presently 2. Nausea. 3. Vomiting. 4. Hyperlipidemia. 5. Cerebrovascular accident. PLAN cxr with minimal infiltrate respiratory care as is care noted ok to dc per pulmonary final antibiotic regimen per ID oxygen as needed gt feeds impression, plan, and exam edited and reviewed in detail care discussed with RN Subjective Allergies: Coded Allergies: No Known Allergies (Unverified , 01/27/17) Subjective awake and no distress some confusion imaging reviewed Objective Last 24 Hour Vital Signs Date Time Temp Pulse Resp B/P (MAP) Pulse Ox O2 Delivery O2 Flow Rate FiO2 12/27/17 04:00 121 12/27/17 04:00 98.1 122 24 122/65 97 Room Air 98.1 12/27/17 00:00 108 12/26/17 21:37 103 18 Room Air 21 12/26/17 21:37 97 Room Air 21 12/26/17 21:37 Room Air 12/26/17 20:00 100 12/26/17 20:00 97.7 100 23 107/62 94 Room Air 97.7 12/26/17 16:10 98.2 105 21 134/52 97 Room Air 98.2 12/26/17 16:00 95 12/26/17 12:00 114 12/26/17 12:00 97.9 107 21 106/60 98 Room Air 97.9 12/26/17 11:40 99.7 12/26/17 09:59 108 120/64 12/26/17 09:45 96 Room Air 21 12/26/17 09:45 105 18 Room Air 21 12/26/17 09:45 Room Air Intake and Output 12/26/17 12/27/17 19:00 07:00 Intake Total 0 ml 932 ml Balance 0 ml 932 ml Intake Oral 0 ml Free Water 250 ml Tube Feeding 682 ml # Voids 3 1 # Bowel Movements 1 Objective GENERAL: A well-developed male, NAD HEENT: Negative. Oropharynx is moist and clear NECK: Supple. No adenopathy. LUNGS: Moderate breath sounds. No rhonchi or wheezes. stable overall CARDIAC: Normal S1, S2. Regular rate and rhythm without murmurs, rubs, or gallops. ABDOMEN: Soft, nontender, and nondistended. no distention EXTREMITIES: No cyanosis, clubbing, or edema. NEUROLOGICAL: Grossly nonfocal and confused. reviewed and edited Laboratory Tests 12/26/17 09:40: White Blood Count 6.6, Red Blood Count 3.77L, Hemoglobin 10.2L, Hematocrit 30.9L , Mean Corpuscular Volume 82, Mean Corpuscular Hemoglobin 27.2, Mean Corpuscular Hemoglobin Concent 33.1, Red Cell Distribution Width 15.5H, Platelet Count 435, Mean Platelet Volume 5.0L, Neutrophils (%) (Auto) 80.3H, Lymphocytes (%) (Auto) 7.8L, Monocytes (%) (Auto) 11.5H, Eosinophils (%) (Auto) 0.0, Basophils (%) (Auto) 0.4, Sodium Level 137, Potassium Level 4.1, Chloride Level 104, Carbon Dioxide Level 26, Anion Gap 7, Blood Urea Nitrogen 29H, Creatinine 0.9, Estimat Glomerular Filtration Rate , Glucose Level 162H, Calcium Level 9.1, Total Bilirubin 0.4, Aspartate Amino Transf (AST/SGOT) 36, Alanine Aminotransferase (ALT/SGPT) 39, Alkaline Phosphatase 213H, Total Protein 7.5, Albumin 2.2L, Globulin 5.3, Albumin/Globulin Ratio 0.4L Current Medications Medications (Trade) Dose Ordered Sig/Iram Route PRN Reason Start Time Stop Time Status Last Admin Dose Admin Acetaminophen (Tylenol) 500 mg Q4H PRN ORAL Mild Pain/Temp > 100.5 12/16/17 20:15 01/15/18 20:14 Acetaminophen (Tylenol) 650 mg Q4H PRN ORAL Fever/Headache/Mild Pain 12/16/17 20:15 01/15/18 20:14 12/26/17 11:40 Albuterol/ Ipratropium (Albuterol/ Ipratropium) 3 ml Q4H PRN HHN Shortness of Breath 12/22/17 15:00 12/27/17 14:59 12/22/17 15:00 Amlodipine Besylate (Norvasc) 10 mg DAILY ORAL 12/17/17 09:00 01/16/18 08:59 12/26/17 09:59 Cyanocobalamin (Vitamin B12) 100 mcg QHS SUBQ 12/16/17 21:00 01/15/18 20:59 12/26/17 21:17 Docusate Sodium (Colace) 250 mg TWICE A DAY NG 12/20/17 09:00 01/19/18 08:59 12/26/17 18:41 Doxazosin Mesylate (Cardura) 1 mg DAILY ORAL 12/17/17 09:00 01/16/18 08:59 12/26/17 10:00 Famotidine (Pepcid) 20 mg DAILY ORAL 12/17/17 09:00 01/16/18 08:59 12/26/17 10:00 Lactulose (Cephulac) 30 gm Q8H PRN ORAL Constipation 12/25/17 11:00 01/24/18 10:59 Meropenem 1 gm/ Sodium Chloride 110 ml @ 220 mls/hr Q8HR IVPB 12/24/17 22:00 12/28/17 23:59 12/27/17 05:11 Multivitamins Therapeutic (Therapeutic Multivitamin) 1 ea DAILY ORAL 12/17/17 09:00 01/16/18 08:59 12/26/17 10:00 Ondansetron HCl (Zofran) 4 mg Q6H PRN IVP Nausea & Vomiting 12/16/17 20:15 01/15/18 20:14 Polyethylene Glycol (Miralax) 17 gm BEDTIME ORAL 12/21/17 21:00 01/20/18 20:59 12/26/17 21:18 Tamsulosin HCl (Flomax) 0.4 mg BEDTIME ORAL 12/16/17 21:00 01/15/18 20:59 12/26/17 21:17 Nakul Cisse MD December 27, 2017 08:15
[2017-12-27] MEDS ORDERED: IMIPENEM-CILAS500 MG IV (09:10)
[2017-12-27] MEDS: Doxazosin 1mg Tab ORAL SCH (09:16)
[2017-12-27] MEDS: Multivitamin w/Minerals tab ORAL SCH (09:16)
[2017-12-27] MEDS: Docusate 100mg/10ml Liq NG SCH (09:16)
--- NOTE | 2017-12-27 10:40 | Infectious Diseases Prog Note ---
"Assessment/Plan Assessment/Plan antibiotics : meropenem A 1. klebsiella | e.coli pneumonia 2. respiratory failure 3. hypertension 4. rectal VRE colonization P 1. continue meropenem 3 more days 2. will follow up cultures Subjective Constitutional: Denies: fever, chills Respiratory: Reports: dry cough; Denies: shortness of breath Gastrointestinal/Abdominal: Denies: nausea, vomiting, diarrhea Musculoskeletal: Denies: pain Allergies: Coded Allergies: No Known Allergies (Unverified , 01/27/17) Objective Vital Signs Last 24 Hour Vital Signs Date Time Temp Pulse Resp B/P (MAP) Pulse Ox O2 Delivery O2 Flow Rate FiO2 12/27/17 09:39 Room Air 12/27/17 09:38 95 Room Air 21 12/27/17 09:16 109 112/65 12/27/17 08:45 86 20 Room Air 12/27/17 04:00 121 12/27/17 04:00 98.1 122 24 122/65 97 Room Air 98.1 12/27/17 00:00 108 12/26/17 21:37 103 18 Room Air 21 12/26/17 21:37 97 Room Air 21 12/26/17 21:37 Room Air 12/26/17 20:00 100 12/26/17 20:00 97.7 100 23 107/62 94 Room Air 97.7 12/26/17 16:10 98.2 105 21 134/52 97 Room Air 98.2 12/26/17 16:00 95 12/26/17 12:00 114 12/26/17 12:00 97.9 107 21 106/60 98 Room Air 97.9 12/26/17 11:40 99.7 Height (Feet): 6 Height (Inches): 1.00 Weight (Pounds): 180 Respiratory/Chest: lungs clear Cardiovascular: normal rate, regular rhythm, no gallop/murmur Abdomen: soft, non tender, other - GT Extremities: no edema Current Medications Medications (Trade) Dose Ordered Sig/Iram Route PRN Reason Start Time Stop Time Status Last Admin Dose Admin Acetaminophen (Tylenol) 500 mg Q4H PRN ORAL Mild Pain/Temp > 100.5 12/16/17 20:15 01/15/18 20:14 Acetaminophen (Tylenol) 650 mg Q4H PRN ORAL Fever/Headache/Mild Pain 12/16/17 20:15 01/15/18 20:14 12/26/17 11:40 Albuterol/ Ipratropium (Albuterol/ Ipratropium) 3 ml Q4H PRN HHN Shortness of Breath 12/22/17 15:00 12/27/17 14:59 12/22/17 15:00 Amlodipine Besylate (Norvasc) 10 mg DAILY ORAL 12/17/17 09:00 01/16/18 08:59 12/27/17 09:16 Cyanocobalamin (Vitamin B12) 100 mcg QHS SUBQ 12/16/17 21:00 01/15/18 20:59 12/26/17 21:17 Docusate Sodium (Colace) 250 mg TWICE A DAY NG 12/20/17 09:00 01/19/18 08:59 12/27/17 09:16 Doxazosin Mesylate (Cardura) 1 mg DAILY ORAL 12/17/17 09:00 01/16/18 08:59 12/27/17 09:16 Famotidine (Pepcid) 20 mg DAILY ORAL 12/17/17 09:00 01/16/18 08:59 12/27/17 09:16 Lactulose (Cephulac) 30 gm Q8H PRN ORAL Constipation 12/25/17 11:00 01/24/18 10:59 Meropenem 1 gm/ Sodium Chloride 110 ml @ 220 mls/hr Q8HR IVPB 12/24/17 22:00 12/28/17 23:59 12/27/17 05:11 Multivitamins Therapeutic (Therapeutic Multivitamin) 1 ea DAILY ORAL 12/17/17 09:00 01/16/18 08:59 12/27/17 09:16 Ondansetron HCl (Zofran) 4 mg Q6H PRN IVP Nausea & Vomiting 12/16/17 20:15 01/15/18 20:14 Polyethylene Glycol (Miralax) 17 gm BEDTIME ORAL 12/21/17 21:00 01/20/18 20:59 12/26/17 21:18 Tamsulosin HCl (Flomax) 0.4 mg BEDTIME ORAL 12/16/17 21:00 01/15/18 20:59 12/26/17 21:17 RENÉE RICHARDSON December 27, 2017 10:40"
[2017-12-27 12:00] VITALS: BP 115/60
[2017-12-27] MEDS ORDERED: Meropenem 1 GM in NS 110 ML IVPB SCH (14:00)
[2017-12-27] MEDS ORDERED: Tubing IV Secondary IV ONE (15:39)
[2017-12-27] MEDS ORDERED: Sterile Water Irrig 1000ml IRRIG ONE (15:39)
[2017-12-27] MEDS ORDERED: NS 275ml ONE (15:39)
--- NOTE | 2017-12-27 21:41 | General Progress Note ---
Assessment/Plan Assessment/Plan Assessment - Transient N/V with resultant aspiration - abnormal LFT - ? etiology - improved - OBS - HTN - CVA - dysphagia, PEG - pneumobilia and s/p poonam on CT Recommendations - continue TF trial - check hepatitis serologies -- negative - Hold statin and re check LFT - check MRCP - follow labs Subjective Allergies: Coded Allergies: No Known Allergies (Unverified , 01/27/17) Subjective above noted NAD d/w RN tolerating TF Objective Last 24 Hour Vital Signs Date Time Temp Pulse Resp B/P (MAP) Pulse Ox O2 Delivery O2 Flow Rate FiO2 12/27/17 12:00 106 12/27/17 12:00 98.2 103 20 115/60 99 Room Air 98.2 12/27/17 09:39 Room Air 12/27/17 09:38 95 Room Air 21 12/27/17 09:16 109 112/65 12/27/17 08:45 86 20 Room Air 12/27/17 08:00 99.5 109 20 112/65 97 Room Air 99.5 12/27/17 08:00 108 12/27/17 04:00 121 12/27/17 04:00 98.1 122 24 122/65 97 Room Air 98.1 12/27/17 00:00 108 Intake and Output 12/26/17 12/27/17 19:00 07:00 Intake Total 0 ml 932 ml Balance 0 ml 932 ml Intake Oral 0 ml Free Water 250 ml Tube Feeding 682 ml # Voids 3 1 # Bowel Movements 1 Height (Feet): 6 Height (Inches): 1.00 Weight (Pounds): 180 Objective WDWN NCAT supple Chest Occ Ronchi RRR abd soft ND NT, GT OK no edema OBS Oli Amaya MD December 27, 2017 21:41
--- NOTE | 2017-12-28 04:00 | Discharge Summary ---
DATE OF ADMISSION: 12/16/2017 DATE OF DISCHARGE: 12/27/2017 ADMISSION DIAGNOSES: 1. Pneumonia. 2. Toxic metabolic encephalopathy. 3. Sepsis. 4. Tachycardia. 5. Hypoxemic respiratory failure. DISCHARGE DIAGNOSES: 1. Pneumonia. 2. Toxic metabolic encephalopathy. 3. Sepsis. 4. Tachycardia. 5. Hypoxemic respiratory failure. HOSPITAL COURSE: The patient is a pleasant male, who had a vomiting episode and was short of breath and congested. Afterwards, it was suspected that he had aspiration pneumonia. He had bilateral infiltrates on x-ray. He was admitted to a monitored bed. His hospital course was complicated by recurrent episodes of congestion. He had one other episode of vomiting. He required initially high-flow oxygen. He eventually was weaned off oxygen. Chest x-ray was improving. The patient did have some tachycardia, believed to be due to his infection and due to his breathing treatments. On discharge, he was stable. He has four more days of IV antibiotic therapy to complete. The discharge plan of care was discussed the patient's and she was in agreement. The patient will go back to [facility]. DISCHARGE MEDICATIONS: Please see discharge medication list for discharge medications. DIET: G-tube feedings. ACTIVITIES: Ad-leslye. FOLLOWUP: The patient will follow up in one to two days at the group home facility. Jarrod Vásquez M.D. DR: JASVIR JOB#: [id number] CC:
== END 2017-12-27 15:40 | DRG 720 ==
LOC: EDBD 14:08 → EMR 14:40 → 2E 14:55 → EDBEDREQ 15:52
DX: A41.9 Sepsis, unspecified organism (principal); J69.0 Pneumonitis due to inhalation of food and vomit; J96.00 Acute respiratory failure, unspecified whether with hypoxia or hypercapnia; J15.5 Pneumonia due to Escherichia coli; J15.0 Pneumonia due to Klebsiella pneumoniae; G92 Toxic encephalopathy; R62.7 Adult failure to thrive; I10 Essential (primary) hypertension; E78.5 Hyperlipidemia, unspecified; E78.00 Pure hypercholesterolemia, unspecified; Z93.1 Gastrostomy status; D64.9 Anemia, unspecified; Z86.73 Personal history of transient ischemic attack (TIA), and cerebral infarction without residual deficits; R11.2 Nausea with vomiting, unspecified; N40.0 Benign prostatic hyperplasia without lower urinary tract symptoms; F03.90 Unspecified dementia, unspecified severity, without behavioral disturbance, psychotic disturbance, mood disturbance, and anxiety
CPT/HCPCS: 36415; 71045; 74018; 74177; 80053; 80202; 81003; 82248; 82550; 82553; 82962; 83605; 83735; 84100; 84484; 85025; 86705; 86709; 86803; 87040; 87070; 87081; 87181; 87205; 87340; 93005; 93306; 93970; 94640; 94664; 94760; 99285; J7620; J8499

== ENCOUNTER 2018-02-12 22:11 | Inpatient (IN) | payer MEDICARE, OTHER ==
[~2018-02-12] VITALS: Ht 154.9 cm; Wt 59.4 kg
[~2018-02-12 22:11] MED LIST changes: +ACETAMINOPHEN325 M1 ORAL; +CARDURA1 MG ORAL; +DULCOLAX10 MG RC; +FLEET ENEMA133 ML RECTAL; +IMIPENEM-CILAS500 MG IV; +MILK OF MA400 MG/51 ORAL; +TRAMADOL HCL50 MG ORAL
[2018-02-12 23:02] VITALS: BP 121/64
[2018-02-12 23:38] LABS: BASOPHILS % (AUTO) 0.4 % (0.0-2.0); HEMATOCRIT 29.3 % (42.0-52.0); HEMOGLOBIN 9.7 G/DL (14.2-18.0); LYMPHOCYTES % (AUTO) 5.7 % (20.0-45.0); MEAN CORPUSCULAR VOLUME 76 FL (80-99); NEUTROPHILS % (AUTO) 83.9 % (45.0-75.0); PLATELET COUNT 214 K/UL (150-450); RED BLOOD COUNT 3.84 M/UL (4.70-6.10); RED CELL DISTRIBUTION WIDTH 14.6 % (11.6-14.8); WHITE BLOOD COUNT 4.8 K/UL (4.8-10.8)
[2018-02-12 23:43] LABS: ANION GAP 8 mmol/L (5-15); BLOOD UREA NITROGEN 23 mg/dL (7-18); CALCIUM 9.5 MG/DL (8.5-10.1); CARBON DIOXIDE 28 MMOL/L (21-32); CHLORIDE 99 MMOL/L (98-107); CREATININE 0.8 MG/DL (0.55-1.30); SODIUM 135 MMOL/L (136-145)
[2018-02-12 23:56] LABS: ALANINE AMINOTRANSFERASE 80 U/L (12-78); ALBUMIN 2.2 G/DL (3.4-5.0); ALBUMIN/GLOBULIN RATIO 0.5 (1.0-2.7); ALKALINE PHOSPHATASE 345 U/L (46-116); ASPARTATE AMINO TRANSFERASE 123 U/L (15-37); BILIRUBIN,TOTAL 0.7 MG/DL (0.2-1.0); CKMB < 0.5 NG/ML (0.0-3.6); CREATINE KINASE 45 U/L (26-308)
[2018-02-13 00:04] LABS: BILIRUBIN, URINE NEGATIVE (NEGATIVE); GLUCOSE, URINE (UA) NEGATIVE (NEGATIVE); KETONES,URINE NEGATIVE (NEGATIVE); NITRITE,URINE NEGATIVE (NEGATIVE); PH,URINE 7 (4.5-8.0); PROTEIN,URINE 2+ (NEGATIVE); UROBILINOGEN,URINE 4 MG/DL (0.0-1.0)
[2018-02-13 00:12] LABS: APPEARANCE,URINE SLIGHTLY CLOUDY; COLOR,URINE YELLOW; LEUKOCYTE ESTERASE ,URINE 2+ (NEGATIVE)
[2018-02-13 00:30] VITALS: BP 113/64
--- NOTE | 2018-02-13 00:45 | Emergency Room Report ---
History of Present Illness General Chief Complaint: Fever Source: Medical Record Present Illness HPI Patient presents from nursing facility with reports of fever Patient himself is nonverbal Chronically debilitated Unknown regarding vomiting or diarrhea there was question of a mild cough Otherwise history of present illness remains significantly limited Patient has a feeding tube in place And fever has been ongoing for the past one day Allergies: Coded Allergies: No Known Allergies (Unverified , 01/27/17) Patient History Past Medical History: see triage record Pertinent Family History: none Reviewed Nursing Documentation: PMH: Agreed; PSxH: Agreed Nursing Documentation-PMH Past Medical History: No History, Except For Hx Cardiac Problems: Yes - HYPERLIPIDEMIA Hx Hypertension: Yes Hx Cancer: No Hx Gastrointestinal Problems: Yes - g-tube Hx Neurological Problems: Yes - syphilis, encephalopathy Hx Cerebrovascular Accident: Yes Hx Transient Ischemic Attacks: Yes Hx Dementia: Yes Hx Seizures: Yes - epilepsy Hx Syncope: Yes Review of Systems All Other Systems: negative except mentioned in HPI Physical Exam Vital Signs Date Time Temp Pulse Resp B/P (MAP) Pulse Ox O2 Delivery O2 Flow Rate FiO2 02/12/18 22:12 98.1 116 16 116/68 98 Room Air 98.1 Sp02 EP Interpretation: reviewed, normal General Appearance: no apparent distress Head: normocephalic, atraumatic Eyes: bilateral eye PERRL ENT: dry mucus membranes Respiratory: no respiratory distress, no retraction, no accessory muscle use, crackles - Bilaterally Cardiovascular #1: regular rate, rhythm, no edema Gastrointestinal: non tender, soft, other - Feeding tube in place Musculoskeletal: other - Patient is contracted upper and lower extremities does not follow command Neurologic: responsive - To physical stimuli Skin: no rash, warm/dry Lymphatic: no adenopathy Medical Decision Making Diagnostic Impression: Primary Impression: UTI (urinary tract infection), bacterial Additional Impression: Sepsis ER Course Patient is complex with multiple differentials including but not limited to infectious, cardiac, cardiopulmonary pathology Patient has IV hydration Including Tylenol provided Fever has improved Patient remains hemodynamically stable IV antibiotics also initiated Patient's x-ray is likely consistent with abnormal imaging otherwise there would be concern of pulmonary congestion and interstitial disease Patient will be admitted for further inpatient care Labs Test 02/12/18 23:06 02/12/18 23:45 White Blood Count 4.8 K/UL (4.8-10.8) Red Blood Count 3.84 M/UL (4.70-6.10) Hemoglobin 9.7 G/DL (14.2-18.0) Hematocrit 29.3 % (42.0-52.0) Mean Corpuscular Volume 76 FL (80-99) Mean Corpuscular Hemoglobin 25.4 PG (27.0-31.0) Mean Corpuscular Hemoglobin Concent 33.3 G/DL (32.0-36.0) Red Cell Distribution Width 14.6 % (11.6-14.8) Platelet Count 214 K/UL (150-450) Mean Platelet Volume 5.5 FL (6.5-10.1) Neutrophils (%) (Auto) 83.9 % (45.0-75.0) Lymphocytes (%) (Auto) 5.7 % (20.0-45.0) Monocytes (%) (Auto) 10.0 % (1.0-10.0) Eosinophils (%) (Auto) 0.0 % (0.0-3.0) Basophils (%) (Auto) 0.4 % (0.0-2.0) Sodium Level 135 MMOL/L (136-145) Potassium Level 4.0 MMOL/L (3.5-5.1) Chloride Level 99 MMOL/L (98-107) Carbon Dioxide Level 28 MMOL/L (21-32) Anion Gap 8 mmol/L (5-15) Blood Urea Nitrogen 23 mg/dL (7-18) Creatinine 0.8 MG/DL (0.55-1.30) Estimat Glomerular Filtration Rate mL/min (>60) Glucose Level 114 MG/DL (74-106) Lactic Acid Level 1.20 mmol/L (0.4-2.0) Calcium Level 9.5 MG/DL (8.5-10.1) Total Bilirubin 0.7 MG/DL (0.2-1.0) Aspartate Amino Transf (AST/SGOT) 123 U/L (15-37) Alanine Aminotransferase (ALT/SGPT) 80 U/L (12-78) Alkaline Phosphatase 345 U/L (46-116) Total Creatine Kinase 45 U/L (26-308) Creatine Kinase MB < 0.5 NG/ML (0.0-3.6) Creatine Kinase MB Relative Index 1.1 Troponin I 0.000 ng/mL (0.000-0.056) Pro-B-Type Natriuretic Peptide 311 pg/mL (0-125) Total Protein 6.9 G/DL (6.4-8.2) Albumin 2.2 G/DL (3.4-5.0) Globulin 4.7 g/dL Albumin/Globulin Ratio 0.5 (1.0-2.7) Lipase 434 U/L (73-393) Urine Color Yellow Urine Appearance Slightly cloudy Urine pH 7 (4.5-8.0) Urine Specific [place] 1.010 (1.005-1.035) Urine Protein 2+ (NEGATIVE) Urine Glucose (UA) Negative (NEGATIVE) Urine Ketones Negative (NEGATIVE) Urine Occult Blood 2+ (NEGATIVE) Urine Nitrite Negative (NEGATIVE) Urine Bilirubin Negative (NEGATIVE) Urine Urobilinogen 4 MG/DL (0.0-1.0) Urine Leukocyte Esterase 2+ (NEGATIVE) Urine RBC 2-4 /HPF (0 - 0) Urine WBC 15-20 /HPF (0 - 0) Urine Squamous Epithelial Cells None /LPF (NONE/OCC) Urine Amorphous Sediment Many /LPF (NONE) Urine Bacteria Few /HPF (NONE) Urine Yeast Many /HPF (NONE) Rhythm Strip Diag. Results EP Interpretation: yes Rate: 76 Rhythm: NSR, no PVC's, no ectopy Chest X-Ray Diagnostic Results Chest X-Ray Diagnostic Results : Chest X-Ray Ordered: Yes # of Views/Limited/Complete: 1 View Indication: Chest Pain EP Interpretation: Yes Interpretation: no consolidation, no effusion, no pneumothorax, no acute cardiopulmonary disease Impression: No acute disease - There is appearance of pulmonary congestion with possible interstitial disease however this x-ray will likely require to be repeated,, Electronically Signed by: Ralph Hallman DO Last Vital Signs Date Time Temp Pulse Resp B/P (MAP) Pulse Ox O2 Delivery O2 Flow Rate FiO2 02/13/18 00:30 99.4 101 24 113/64 97 Room Air 99.4 Status: improved Disposition: ADMITTED INPATIENT Condition: Serious Referrals: Jarrod Vásquez MD (PCP) Ralph Hallman DO Feb 13, 2018 00:45
[2018-02-13] MEDS ORDERED: VITAMIN B 12 SQ (00:52)
[2018-02-13] MEDS ORDERED: DUONEB 0.5-3(2.53 ML HHN (00:52)
[2018-02-13] MEDS ORDERED: PRO-AMATINE2.5 MG ORAL (00:56)
[2018-02-13] MEDS ORDERED: COLACE100 MG ORAL (00:56)
[2018-02-13] MEDS ORDERED: SENNA LAXATIVE8.6 MG GT (00:58)
[2018-02-13 04:00] VITALS: BP 120/67
[2018-02-13] MEDS ORDERED: Milk of Magnesia 30ml Ud ORAL PRN (04:00)
[2018-02-13] MEDS ORDERED: Vancomycin 1gm inj IVPB ONE (04:50)
[2018-02-13] MEDS ORDERED: Vancomycin 1gm/D5W 275ml IVPB SCH ×2 (05:00)
[2018-02-13] MEDS: Piperacillin/Tazobactam 3.375 GM in NS 110 ML IVPB SCH ×3 (07:00→22:07)
[2018-02-13 08:00] VITALS: BP 127/54
[2018-02-13] MEDS: Albuterol/Ipratropium 3ml neb HHN SCH ×5 (08:02→23:00)
[2018-02-13] MEDS ORDERED: Aspirin Baby 81mg ORAL SCH (09:00)
[2018-02-13] MEDS ORDERED: Docusate 100mg cap ORAL SCH (09:00)
[2018-02-13] MEDS ORDERED: Milk of Magnesia 30ml Ud GT PRN (09:30)
[2018-02-13] MEDS ORDERED: Acetaminophen 650mg/20.3ml GT PRN (09:30)
[2018-02-13 09:31] LABS: BASOPHILS % (AUTO) 0.7 % (0.0-2.0); EOSINOPHILS % (AUTO) 0.2 % (0.0-3.0); HEMATOCRIT 29.6 % (42.0-52.0); HEMOGLOBIN 9.5 G/DL (14.2-18.0); LYMPHOCYTES % (AUTO) 6.8 % (20.0-45.0); MEAN CORPUSCULAR VOLUME 78 FL (80-99); MONOCYTES % (AUTO) 15.6 % (1.0-10.0); NEUTROPHILS % (AUTO) 76.7 % (45.0-75.0); PLATELET COUNT 198 K/UL (150-450); RED BLOOD COUNT 3.81 M/UL (4.70-6.10); RED CELL DISTRIBUTION WIDTH 14.4 % (11.6-14.8)
[2018-02-13] MEDS: Aspirin Baby 81mg GT SCH (09:40)
[2018-02-13] MEDS: Multivitamins W/Minerals 15 ML UDC GT SCH (09:40)
[2018-02-13 09:49] LABS: ALANINE AMINOTRANSFERASE 71 U/L (12-78); ALBUMIN 2.1 G/DL (3.4-5.0); ALBUMIN/GLOBULIN RATIO 0.5 (1.0-2.7); ALKALINE PHOSPHATASE 306 U/L (46-116); ANION GAP 9 mmol/L (5-15); ASPARTATE AMINO TRANSFERASE 115 U/L (15-37); BILIRUBIN,TOTAL 0.7 MG/DL (0.2-1.0); BLOOD UREA NITROGEN 20 mg/dL (7-18); CALCIUM 9.3 MG/DL (8.5-10.1); CARBON DIOXIDE 25 MMOL/L (21-32); CHLORIDE 100 MMOL/L (98-107); CREATININE 0.7 MG/DL (0.55-1.30); POTASSIUM 3.7 MMOL/L (3.5-5.1); SODIUM 134 MMOL/L (136-145)
--- NOTE | 2018-02-13 11:36 | Diagnostic Imaging Report ---
Indication: Chest pain Comparison: 12/26/2017 A single view chest radiograph was obtained. Findings: Interstitial opacities are present throughout the lung french bilaterally. Heart is mildly enlarged. Central pulmonary vessels appear prominent. IMPRESSION: Suspicion of interstitial edema. Correlate clinically
[2018-02-13 12:00] VITALS: BP 111/60
--- NOTE | 2018-02-13 14:11 | Diagnostic Imaging Report ---
Indication: Elevated liver function tests. Status post cholecystectomy. Technique: Grayscale and duplex Doppler imaging of the abdomen performed. Comparison: CT abdomen pelvis 12/16/2017. Findings: Liver is normal in size. The spleen is enlarged measuring about 15 cm.. The liver is unremarkable in appearance. The main portal vein is patent by Doppler evaluation. Trace free fluid around the liver noted. There is mild nodularity of the liver surface. CBD is 6 mm. There is no hydronephrosis. There are a few small cysts present within the left kidney. IMPRESSION: Trace ascites. Question of a chronic liver disease with mild nodularity liver surface. Correlate clinically. Splenomegaly. Left renal cysts Status post cholecystectomy
[2018-02-13 16:00] VITALS: BP 125/58
[2018-02-13] MEDS: Vancomycin 750mg/NS 250ml IVPB SCH (17:00)
--- NOTE | 2018-02-13 17:02 | History and Physical Report ---
DATE OF ADMISSION: 02/12/2018 CHIEF COMPLAINT: Altered mental status, sepsis, and pneumonia. HISTORY OF PRESENT ILLNESS: The patient is an unfortunate, 72-year-old male. He has a history of encephalopathy, dysphagia, failure to thrive. He has a prior history of pneumonia, UTI, and sepsis. He has a history of orthostatic hypotension. He was transferred from a senior living facility with complaints of cough, congestion, shortness of breath, and fever. The patient earlier that day was noted to have a low-grade temperature. He had a chest x-ray that revealed an infiltrate. He was started on antibiotic therapy. Later in the day, the patient had persistent fever and congestion, became tachycardic, and hypotensive and hypoxic. The patient was transferred to the emergency room. On evaluation there, the temp was 101.7, pulse was 114, respirations 24, blood pressure 121/64. The patient was pancultured. He received IV antibiotics. Chest x-ray showed pneumonia. He also had evidence for possible urinary tract infection. The patient is now admitted for further evaluation and care. PAST MEDICAL HISTORY: As above. PAST SURGICAL HISTORY: Includes a G-tube. CURRENT MEDICATIONS: Reconciled and reviewed. ALLERGIES: None. FAMILY HISTORY: None. SOCIAL HISTORY: There is no known history of tobacco, ethanol, or drugs. REVIEW OF SYSTEMS: From the patient unobtainable. PHYSICAL EXAMINATION: VITAL SIGNS: Temperature 101.7, pulse 114, respirations 24, blood pressure 121/64. GENERAL: The patient is a chronically ill-appearing male. He is confused, but is arousable and does follow some simple commands. HEENT: His pupils are equal, round, and reactive to light. Oropharynx clear. NECK: Supple. HEART: Regular rate and rhythm. LUNGS: Bilateral rhonchi. ABDOMEN: Soft, nontender, and nondistended. EXTREMITIES: Without clubbing, cyanosis, or edema. LABORATORY AND DIAGNOSTIC DATA: Sodium 135, potassium was 4, BUN 23, creatinine 0.8. AST 123, ALT 80, alkaline phosphatase 345. Amylase was 434. Natriuretic peptide level was 311. Chest x-ray showed an infiltrate at the right base. UA showed 15 to 20 wbc's. ASSESSMENT: This is an unfortunate male with history of chronic encephalopathy, hypotension, orthostasis, dementia, dysphagia, failure to thrive, admitted with sepsis secondary to pneumonia and urinary tract infection. PROBLEM LIST: 1. Sepsis. 2. Pneumonia. 3. UTI. 4. Elevated liver function tests. Rule out cholecystitis. 5. Toxic metabolic encephalopathy. 6. Dysphagia. PLAN: 1. Aggressive fluid resuscitation. 2. Broad-spectrum IV antibiotics. 3. ID, Pulmonary, and GI consultations will be obtained. 4. We will check an abdominal ultrasound. 5. Follow up pending cultures. 6. Monitor LFTs and lipase. 7. The patient's status is currently guarded and the case has been discussed with the patient's . Jarrod Vásquez M.D. DR: DENYS JOB#: [id number] CC:
[2018-02-13 20:00] VITALS: BP 113/56
[2018-02-13] MEDS ORDERED: Atorvastatin 20mg tab ORAL SCH (21:00)
[2018-02-13] MEDS: Atorvastatin 20mg tab GT SCH (21:07)
[2018-02-13] MEDS: Docusate 100mg/10ml Liq GT SCH (21:07)
--- NOTE | 2018-02-13 23:17 | Consultation ---
DATE OF CONSULTATION: 02/13/2018 PULMONARY CONSULTATION CONSULTING PHYSICIAN: Nakul Cisse M.D. REASON FOR CONSULTATION: Respiratory insufficiency. HISTORY OF PRESENT ILLNESS: This 72-year-old male who presents with sepsis and pneumonia. The patient with history of encephalopathy, dysphagia, failure to thrive. The patient presents with worsening congestion overall. The patient was started on antibiotic therapy, noted to have persistent fevers and congestion, was noted to have temperature up to 101.7. Chest x-ray was consistent with pneumonia and the patient admitted. I was called to assist and evaluate further. The patient is unable to give much in the way of history at present. PAST MEDICAL HISTORY: Notable for encephalopathy, dysphagia, failure to thrive, history of pneumonia, history of sepsis, history of G-tube, history of aspiration. MEDICATIONS: Reviewed. ALLERGIES: Reviewed. SOCIAL HISTORY: Nonsmoker and nondrinker. REVIEW OF SYSTEMS: Unobtainable at present. PHYSICAL EXAMINATION: GENERAL: Ill-appearing male. VITAL SIGNS: Stable. 82 18, O2 saturation 99%, blood pressure 125/58, temperature 97.5 HEENT: Negative. NECK: Supple. No significant adenopathy. LUNGS: Moderate breath sounds. Scattered rhonchi. CARDIAC: Normal S1 and S2. Regular rate and rhythm. Slightly distant. No rubs or gallops. Soft systolic murmur. ABDOMEN: Soft, nontender, and nondistended. G-tube in place. EXTREMITIES: No cyanosis, clubbing, mild edema. NEUROLOGICAL: Reduced mental status. Only responds to pain x4. LABORATORY AND DIAGNOSTIC DATA: Reviewed. White count 5, hemoglobin 9.5, hematocrit 29.6. BUN and creatinine 20 and 0.7. Alkaline phosphatase 306. Albumin 2.1. Chest x-ray with possible early pneumonia, persistent mild pulmonary edema. IMPRESSION: Possible pneumonia versus respiratory insufficiency, mild congestion, acute on chronic encephalopathy, G-tube, concerning for aspiration, concerning for aspiration pneumonitis, sepsis, elevated liver enzymes, dysphagia. RECOMMENDATION: 1. Fluid management, IV antibiotics, respiratory care. 2. Followup x-ray. 3. Followup imaging. 4. Nebulized therapy. 5. Oxygen therapy. 6. G-tube feeding. 7. Monitor for reflux, aspiration, and supportive care. 8. pending evaluation. Nakul Cisse M.D. DR: Sofie JOB#: [id number] CC: CHRISTEN
[2018-02-14] VITALS: BP 118/61
[2018-02-14] MEDS: Albuterol/Ipratropium 3ml neb HHN SCH ×6 (03:00→23:00)
[2018-02-14 04:00] VITALS: BP 109/76
[2018-02-14] MEDS: Vancomycin 750mg/NS 250ml IVPB SCH (05:00)
[2018-02-14] MEDS: Piperacillin/Tazobactam 3.375 GM in NS 110 ML IVPB SCH ×3 (06:00→22:00)
[2018-02-14 08:00] VITALS: BP 100/56
[2018-02-14 08:37] LABS: BASOPHILS % (AUTO) 0.6 % (0.0-2.0); HEMATOCRIT 28.7 % (42.0-52.0); HEMOGLOBIN 9.1 G/DL (14.2-18.0); LYMPHOCYTES % (AUTO) 7.7 % (20.0-45.0); MEAN CORPUSCULAR VOLUME 78 FL (80-99); MONOCYTES % (AUTO) 14.9 % (1.0-10.0); NEUTROPHILS % (AUTO) 76.7 % (45.0-75.0); PLATELET COUNT 197 K/UL (150-450); RED CELL DISTRIBUTION WIDTH 14.7 % (11.6-14.8); WHITE BLOOD COUNT 4.1 K/UL (4.8-10.8)
--- NOTE | 2018-02-14 08:50 | General Progress Note ---
Assessment/Plan Problem List: (1) Aspiration pneumonia ICD Codes: J69.0 - Pneumonitis due to inhalation of food and vomit SNOMED: 320584980 (2) Dementia ICD Codes: F03.90 - Unspecified dementia without behavioral disturbance SNOMED: 80503141 (3) HTN (hypertension) ICD Codes: I10 - Essential (primary) hypertension SNOMED: 57898581 (4) BPH (benign prostatic hyperplasia) ICD Codes: N40.0 - Benign prostatic hyperplasia without lower urinary tract symptoms SNOMED: 667336721, 343525868 (5) Probable sepsis ICD Codes: A41.9 - Sepsis, unspecified organism SNOMED: 763775208 (6) UTI (urinary tract infection), bacterial ICD Codes: N39.0 - Urinary tract infection, site not specified; A49.9 - Bacterial infection, unspecified SNOMED: 299061879 Status: stable, progressing Assessment/Plan iv abx resp rx gt feeds asp precautions monitor cxr d/w status and poc x 5 min Subjective ROS Limited/Unobtainable: No Constitutional: Reports: malaise, weakness HEENT: Reports: no symptoms Cardiovascular: Reports: no symptoms Respiratory: Reports: cough, sputum Gastrointestinal/Abdominal: Reports: difficulty swallowing Genitourinary: Reports: no symptoms Neurologic/Psychiatric: Reports: no symptoms Endocrine: Reports: no symptoms Hematologic/Lymphatic: Reports: no symptoms Allergies: Coded Allergies: No Known Allergies (Unverified , 01/27/17) All Systems: reviewed and negative except above Subjective no events. w/o congestion. no fever or chills. confused at baseline. Objective Last 24 Hour Vital Signs Date Time Temp Pulse Resp B/P (MAP) Pulse Ox O2 Delivery O2 Flow Rate FiO2 02/14/18 07:49 89 18 99 Room Air 02/14/18 04:00 82 02/14/18 04:00 98.4 64 20 109/76 (87) 97 98.4 02/14/18 03:18 Room Air 21 02/14/18 03:18 Room Air 02/14/18 00:00 96.3 72 22 118/61 (80) 98 96.3 02/14/18 00:00 86 02/13/18 23:02 87 20 98 Room Air 21 02/13/18 23:02 Room Air 21 02/13/18 21:09 85 20 99 Room Air 21 02/13/18 21:00 Room Air 02/13/18 20:59 88 18 98 Room Air 21 02/13/18 20:00 80 02/13/18 20:00 96.4 83 19 113/56 (75) 99 96.4 02/13/18 16:34 87 20 99 Room Air 21 02/13/18 16:24 89 20 99 Room Air 21 02/13/18 16:00 86 02/13/18 16:00 97.5 91 19 125/58 (80) 99 97.5 02/13/18 12:05 97 02/13/18 12:00 98.3 98 20 111/60 (77) 98 98.3 02/13/18 11:24 94 20 99 Room Air 21 02/13/18 11:11 90 20 97 Room Air 21 02/13/18 09:40 91 127/54 02/13/18 09:00 Room Air Intake and Output 02/13/18 02/14/18 19:00 07:00 Intake Total 1380.000 ml 760.0 ml Output Total 150 ml Balance 1230.000 ml 760.0 ml Free Water 10 ml 70 ml IV Total 1240.000 ml 430.0 ml Tube Feeding 120 ml 260 ml Other 10 ml Output Urine Total 150 ml # Bowel Movements 1 Laboratory Tests 02/13/18 09:05: White Blood Count 5.0, Red Blood Count 3.81L, Hemoglobin 9.5L, Hematocrit 29.6L , Mean Corpuscular Volume 78L, Mean Corpuscular Hemoglobin 24.8L, Mean Corpuscular Hemoglobin Concent 32.0, Red Cell Distribution Width 14.4, Platelet Count 198, Mean Platelet Volume 5.2L, Neutrophils (%) (Auto) 76.7H, Lymphocytes (%) (Auto) 6.8L, Monocytes (%) (Auto) 15.6H, Eosinophils (%) (Auto) 0.2, Basophils (%) (Auto) 0.7, Sodium Level 134L, Potassium Level 3.7, Chloride Level 100, Carbon Dioxide Level 25, Anion Gap 9, Blood Urea Nitrogen 20H, Creatinine 0.7, Estimat Glomerular Filtration Rate , Glucose Level 91, Calcium Level 9.3, Total Bilirubin 0.7, Aspartate Amino Transf (AST/SGOT) 115H, Alanine Aminotransferase (ALT/SGPT) 71, Alkaline Phosphatase 306H, Total Protein 6.7, Albumin 2.1L, Globulin 4.6, Albumin/Globulin Ratio 0.5L, Lipase 302 02/14/18 07:55: White Blood Count 4.1L, Red Blood Count 3.70L, Hemoglobin 9.1L, Hematocrit 28.7L , Mean Corpuscular Volume 78L, Mean Corpuscular Hemoglobin 24.5L, Mean Corpuscular Hemoglobin Concent 31.6L, Red Cell Distribution Width 14.7, Platelet Count 197, Mean Platelet Volume 5.3L, Neutrophils (%) (Auto) 76.7H, Lymphocytes (%) (Auto) 7.7L, Monocytes (%) (Auto) 14.9H, Eosinophils (%) (Auto) 0.0, Basophils (%) (Auto) 0.6, Sodium Level [Pending], Potassium Level [Pending] , Chloride Level [Pending], Carbon Dioxide Level [Pending], Blood Urea Nitrogen [Pending], Creatinine [Pending], Estimat Glomerular Filtration Rate [Pending], Glucose Level [Pending], Calcium Level [Pending], Total Bilirubin [Pending], Aspartate Amino Transf (AST/SGOT) [Pending], Alanine Aminotransferase (ALT/SGPT ) [Pending], Alkaline Phosphatase [Pending], Total Protein [Pending], Albumin [ Pending], Globulin [Pending] Height (Feet): 5 Height (Inches): 1.00 Weight (Pounds): 131 General Appearance: WD/WN, alert Neck: supple Cardiovascular: normal rate, regular rhythm Respiratory/Chest: chest wall non-tender, rhonchi - bilaterally Abdomen: normal bowel sounds, non tender, soft, no organomegaly Edema: no edema noted Arm (L), no edema noted Arm (R), no edema noted Leg (L), no edema noted Leg (R), no edema noted Pedal (L), no edema noted Pedal (R), no edema noted Generalized Jarrod Vásquez MD Feb 14, 2018 08:50
[2018-02-14 09:04] LABS: ALANINE AMINOTRANSFERASE 66 U/L (12-78); ALBUMIN 1.9 G/DL (3.4-5.0); ALBUMIN/GLOBULIN RATIO 0.4 (1.0-2.7); ALKALINE PHOSPHATASE 285 U/L (46-116); ANION GAP 7 mmol/L (5-15); ASPARTATE AMINO TRANSFERASE 108 U/L (15-37); BILIRUBIN,TOTAL 0.6 MG/DL (0.2-1.0); BLOOD UREA NITROGEN 17 mg/dL (7-18); CALCIUM 8.7 MG/DL (8.5-10.1); CARBON DIOXIDE 26 MMOL/L (21-32); CHLORIDE 104 MMOL/L (98-107); CREATININE 0.8 MG/DL (0.55-1.30); POTASSIUM 3.3 MMOL/L (3.5-5.1); SODIUM 137 MMOL/L (136-145)
[2018-02-14] MEDS: Aspirin Baby 81mg GT SCH (09:24)
[2018-02-14] MEDS: Multivitamins W/Minerals 15 ML UDC GT SCH (09:26)
--- NOTE | 2018-02-14 11:22 | Pulmonology Progress Note ---
Assessment/Plan Assessment/Plan IMPRESSION: Pneumonitis, mild congestion, acute on chronic encephalopathy, G-tube, concerning for aspiration, concerning for aspiration pneumonitis, sepsis, elevated liver enzymes, dysphagia. PLAN antibiotics monitor fluid status oxygen aspiration precautions respiratory care follow up imaging impression, plan, and exam edited and reviewed in detail care discussed with RN Subjective Allergies: Coded Allergies: No Known Allergies (Unverified , 01/27/17) Subjective comfortable no distress care noted Objective Last 24 Hour Vital Signs Date Time Temp Pulse Resp B/P (MAP) Pulse Ox O2 Delivery O2 Flow Rate FiO2 02/14/18 09:00 Room Air 02/14/18 09:00 93 100/56 02/14/18 08:00 93 02/14/18 08:00 97.8 93 21 100/56 (71) 98 97.8 02/14/18 07:54 Room Air 21 02/14/18 07:49 89 18 99 Room Air 21 02/14/18 04:00 82 02/14/18 04:00 98.4 64 20 109/76 (87) 97 98.4 02/14/18 03:18 Room Air 21 02/14/18 03:18 Room Air 21 02/14/18 00:00 96.3 72 22 118/61 (80) 98 96.3 02/14/18 00:00 86 02/13/18 23:02 87 20 98 Room Air 21 02/13/18 23:02 Room Air 21 02/13/18 21:09 85 20 99 Room Air 21 02/13/18 21:00 Room Air 02/13/18 20:59 88 18 98 Room Air 21 02/13/18 20:00 80 02/13/18 20:00 96.4 83 19 113/56 (75) 99 96.4 02/13/18 16:34 87 20 99 Room Air 21 02/13/18 16:24 89 20 99 Room Air 21 02/13/18 16:00 86 02/13/18 16:00 97.5 91 19 125/58 (80) 99 97.5 02/13/18 12:05 97 02/13/18 12:00 98.3 98 20 111/60 (77) 98 98.3 02/13/18 11:24 94 20 99 Room Air 21 Intake and Output 02/13/18 02/14/18 19:00 07:00 Intake Total 1380.000 ml 760.0 ml Output Total 150 ml Balance 1230.000 ml 760.0 ml Free Water 10 ml 70 ml IV Total 1240.000 ml 430.0 ml Tube Feeding 120 ml 260 ml Other 10 ml Output Urine Total 150 ml # Bowel Movements 1 Objective HEENT: Negative. NECK: Supple. No significant adenopathy. LUNGS: Moderate breath sounds. reduced rhonchi. CARDIAC: Normal S1 and S2. Regular rate and rhythm. Slightly distant. No rubs or gallops. Soft systolic murmur. ABDOMEN: Soft, nontender, and nondistended. G-tube in place. EXTREMITIES: No cyanosis, clubbing, mild edema. NEUROLOGICAL: Reduced mental status. Only responds to pain x4. Microbiology Date/Time Source Procedure Growth Status 02/12/18 23:09 Blood Blood Culture - Preliminary NO GROWTH AFTER 24 HOURS Resulted 02/12/18 23:05 Blood Blood Culture - Preliminary NO GROWTH AFTER 24 HOURS Resulted 02/12/18 23:45 Urine,Clean Catch Urine Culture - Preliminary Resulted Laboratory Tests 02/14/18 07:55: White Blood Count 4.1L, Red Blood Count 3.70L, Hemoglobin 9.1L, Hematocrit 28.7L , Mean Corpuscular Volume 78L, Mean Corpuscular Hemoglobin 24.5L, Mean Corpuscular Hemoglobin Concent 31.6L, Red Cell Distribution Width 14.7, Platelet Count 197, Mean Platelet Volume 5.3L, Neutrophils (%) (Auto) 76.7H, Lymphocytes (%) (Auto) 7.7L, Monocytes (%) (Auto) 14.9H, Eosinophils (%) (Auto) 0.0, Basophils (%) (Auto) 0.6, Sodium Level 137, Potassium Level 3.3L, Chloride Level 104, Carbon Dioxide Level 26, Anion Gap 7, Blood Urea Nitrogen 17, Creatinine 0.8, Estimat Glomerular Filtration Rate , Glucose Level 125H, Calcium Level 8.7, Total Bilirubin 0.6, Aspartate Amino Transf (AST/SGOT) 108H, Alanine Aminotransferase (ALT/SGPT) 66, Alkaline Phosphatase 285H, Total Protein 6.2L, Albumin 1.9L, Globulin 4.3, Albumin/Globulin Ratio 0.4L Current Medications Medications (Trade) Dose Ordered Sig/Iram Route PRN Reason Start Time Stop Time Status Last Admin Dose Admin Acetaminophen (Tylenol) 650 mg Q4H PRN GT Mild Pain/Temp > 100.5 02/13/18 09:30 8 09:29 Albuterol/ Ipratropium (Albuterol/ Ipratropium) 3 ml Q4HRT HHN 02/13/18 07:00 02/18/18 06:59 02/14/18 11:16 Amlodipine Besylate (Norvasc) 10 mg DAILY GT 02/13/18 09:30 03/15/18 09:29 02/13/18 09:40 Aspirin (ASA) 81 mg DAILY GT 02/13/18 09:30 03/15/18 09:29 02/14/18 09:24 Atorvastatin Calcium (Lipitor) 40 mg BEDTIME GT 02/13/18 21:00 03/15/18 20:59 02/13/18 21:07 Docusate Sodium (Colace) 100 mg BEDTIME GT 02/13/18 21:00 03/15/18 20:59 02/13/18 21:07 Famotidine (Pepcid) 20 mg DAILY GT 02/13/18 09:30 03/15/18 09:29 02/14/18 09:24 Magnesium Hydroxide (Mom) 30 ml DAILYPRN PRN GT Constipation 02/13/18 09:30 03/15/18 09:29 Midodrine (Pro-Amatine) 2.5 mg THREE TIMES A DAY GT 02/13/18 09:30 03/15/18 09:29 02/14/18 09:24 Multivitamins (Multivitamins W/ Minerals 15ml Liquid) 15 ml DAILY GT 02/13/18 09:00 03/15/18 08:59 02/14/18 09:26 Piperacillin Sod/ Tazobactam Sod 3.375 gm/Sodium Chloride 110 ml @ 27.5 mls/hr EVERY 8 HOURS IVPB 02/13/18 06:00 02/18/18 05:59 02/14/18 06:00 Sodium Chloride 1,000 ml @ 75 mls/hr [id number] IV 02/13/18 05:00 03/15/18 04:59 02/14/18 09:18 Vancomycin HCl (Vanco rx to dose) 1 ea DAILY PRN MISC Per rx protocol 02/13/18 03:45 8/11/18 03:44 Vancomycin/Sodium Chloride 250 ml @ 166.667 mls/hr Q12HR@0500,1700 IVPB 02/13/18 17:00 02/18/18 16:59 02/14/18 05:00 Nakul Cisse MD Feb 14, 2018 11:22
[2018-02-14 12:00] VITALS: BP 104/59
[2018-02-14 16:00] VITALS: BP 124/57
[2018-02-14 20:00] VITALS: BP 118/60
[2018-02-14] MEDS: Atorvastatin 20mg tab GT SCH (21:50)
[2018-02-14] MEDS: Docusate 100mg/10ml Liq GT SCH (21:50)
[2018-02-14] MEDS: Heparin 5000 units/ml inj SUBQ SCH (21:52)
--- NOTE | 2018-02-14 23:45 | Consultation ---
DATE OF CONSULTATION: 02/14/2018 INFECTIOUS DISEASE CONSULTATION This consult is for coverage of Dr. Urban. CONSULTING PHYSICIAN: Rahul Shen M.D. PRIMARY ATTENDING PHYSICIAN: Jarrod Vásquez M.D. REASON FOR CONSULT: Sepsis, UTI, and pneumonia. HISTORY OF PRESENT ILLNESS: This is a 72-year-old, male, admitted on 02/12/2018 from a nursing facility because of fever, had altered mental status, cough, congestion, shortness of breath and temperature was 101.7 degrees in hospital. He had tachycardia with pulse of 116 at the time of admission. The patient is not a source of history. PAST MEDICAL HISTORY: Significant for hypertension, failure to thrive, had G-tube placement, seizure disorder, anemia, encephalopathy, and benign prostatic hypertrophy. ALLERGIES: No known drug allergies. MEDICATIONS: Getting heparin, magnesium sulfate, Colace, atorvastatin, vancomycin, Tylenol, amlodipine, aspirin, Lasix, midodrine, milk of magnesia, Zosyn, and sodium chloride. SOCIAL HISTORY: [facility] resident. . No other history obtainable. PHYSICAL EXAMINATION: GENERAL APPEARANCE: He is awake, alert, verbal, . VITAL SIGNS: Temperature is 97.8 degrees, pulse 84, and blood pressure 104/59. HEAD AND NECK: Aneta conjunctiva. HEART: Normal rate. LUNGS: Clear. ABDOMEN: Soft and nontender. G-tube placement. EXTREMITY: He has no edema. He has muscle atrophy. LABORATORY AND DIAGNOSTIC DATA: WBC 4.1, hemoglobin 9.1, hematocrit 28.7, and platelets is 197. Sodium 137, potassium 3.3, chloride 104, bicarbonate 26, BUN 17, and creatinine 0.8. AST is elevated 108 and alkaline phosphatase is elevated 285. Albumin is low 1.9. Blood culture x2 so far negative. Urine culture negative. UA showed WBC of 15 to 20. Abdomen ultrasound showed the patient is status post cholecystectomy and likely have an evidence of chronic liver disease. Chest x-ray showed interstitial edema. IMPRESSION: Sepsis with tachycardia and fever, source may be UTI. The patient also has interstitial edema on chest x-ray, may have underlying pneumonia, has anemia, hypertension, protein malnutrition and decreased albumin, splenomegaly, and likely chronic liver disease. RECOMMENDATION: We will continue with Zosyn. We will follow up the culture, may discontinue IV vancomycin. At the end of my exam, I thank Dr. Vásquez for involving me in the care of this patient. Rahul Shen M.D. DR: EDUARD JOB#: [id number] CC:
[2018-02-15] VITALS: BP 118/60
[2018-02-15] MEDS: Albuterol/Ipratropium 3ml neb HHN SCH ×6 (03:45→23:46)
[2018-02-15 04:00] VITALS: BP 121/68
[2018-02-15] MEDS: Piperacillin/Tazobactam 3.375 GM in NS 110 ML IVPB SCH ×3 (06:01→22:09)
[2018-02-15 08:00] VITALS: BP 120/61
[2018-02-15 08:21] LABS: BASOPHILS % (AUTO) 0.6 % (0.0-2.0); EOSINOPHILS % (AUTO) 0.2 % (0.0-3.0); HEMATOCRIT 28.1 % (42.0-52.0); LYMPHOCYTES % (AUTO) 7.6 % (20.0-45.0); MEAN CORPUSCULAR VOLUME 78 FL (80-99); MONOCYTES % (AUTO) 14.2 % (1.0-10.0); NEUTROPHILS % (AUTO) 77.4 % (45.0-75.0); PLATELET COUNT 204 K/UL (150-450); RED BLOOD COUNT 3.61 M/UL (4.70-6.10); RED CELL DISTRIBUTION WIDTH 14.7 % (11.6-14.8); WHITE BLOOD COUNT 4.4 K/UL (4.8-10.8)
[2018-02-15] MEDS: Aspirin Baby 81mg GT SCH (08:45)
[2018-02-15] MEDS: Multivitamins W/Minerals 15 ML UDC GT SCH (08:46)
[2018-02-15] MEDS: Heparin 5000 units/ml inj SUBQ SCH ×2 (08:47→21:12)
--- NOTE | 2018-02-15 09:02 | Diagnostic Imaging Report ---
EXAM: XR Chest, 1 View CLINICAL HISTORY: CP TECHNIQUE: Frontal view of the chest. COMPARISON: Chest x-ray 02/12/18 FINDINGS: Lungs: Continued interstitial prominence bilaterally, similar in appearance. There is increased more rounded opacity in the medial right lower lung may be developing consolidation. Pleural space: Unremarkable. No pneumothorax. Heart: Unremarkable. No cardiomegaly. Mediastinum: Unremarkable. Bones/joints: Degenerative changes of the spine. IMPRESSION: Continued interstitial prominence bilaterally, similar in appearance. There is increased more rounded opacity in the medial right lower lung may be developing consolidation.
[2018-02-15 09:04] LABS: ALANINE AMINOTRANSFERASE 64 U/L (12-78); ALBUMIN 1.9 G/DL (3.4-5.0); ALBUMIN/GLOBULIN RATIO 0.4 (1.0-2.7); ALKALINE PHOSPHATASE 301 U/L (46-116); ANION GAP 4 mmol/L (5-15); ASPARTATE AMINO TRANSFERASE 96 U/L (15-37); BILIRUBIN,TOTAL 0.5 MG/DL (0.2-1.0); BLOOD UREA NITROGEN 14 mg/dL (7-18); CALCIUM 8.7 MG/DL (8.5-10.1); CARBON DIOXIDE 26 MMOL/L (21-32); CHLORIDE 106 MMOL/L (98-107); CREATININE 0.7 MG/DL (0.55-1.30); POTASSIUM 3.6 MMOL/L (3.5-5.1); SODIUM 136 MMOL/L (136-145)
--- NOTE | 2018-02-15 09:35 | Pulmonology Progress Note ---
Assessment/Plan Assessment/Plan IMPRESSION: Pneumonitis, mild congestion, acute on chronic encephalopathy, G-tube, concerning for aspiration, concerning for aspiration pneumonitis, sepsis, elevated liver enzymes, dysphagia. PLAN antibiotics monitor fluid status oxygen as needed aspiration precautions respiratory care follow up imaging impression, plan, and exam edited and reviewed in detail care discussed with RN Subjective ROS Limited/Unobtainable: Yes Allergies: Coded Allergies: No Known Allergies (Unverified , 01/27/17) Subjective comfortable no distress care noted Objective Last 24 Hour Vital Signs Date Time Temp Pulse Resp B/P (MAP) Pulse Ox O2 Delivery O2 Flow Rate FiO2 02/15/18 08:50 92 20 99 Room Air 21 02/15/18 08:45 94 120/61 02/15/18 08:42 94 20 100 Room Air 02/15/18 08:00 98.1 94 20 120/61 (80) 99 98.1 02/15/18 04:40 93 02/15/18 04:00 97.2 94 24 121/68 (85) 99 97.2 02/15/18 03:45 84 20 97 Room Air 21 02/15/18 03:45 82 18 96 Room Air 21 02/15/18 00:00 97.9 80 19 118/60 (79) 98 97.9 02/15/18 00:00 95 02/14/18 23:30 Room Air 21 02/14/18 23:30 Room Air 21 02/14/18 20:43 Room Air 02/14/18 20:00 97.9 79 20 118/60 (79) 98 97.9 02/14/18 20:00 80 02/14/18 20:00 86 18 98 Room Air 21 02/14/18 20:00 88 20 99 Room Air 21 02/14/18 16:09 88 18 98 Room Air 21 02/14/18 16:09 88 18 98 Room Air 21 02/14/18 16:00 98.1 79 19 124/57 (79) 98 98.1 02/14/18 16:00 81 02/14/18 12:00 81 02/14/18 12:00 97.8 84 18 104/59 (74) 98 97.8 02/14/18 11:26 92 18 100 Room Air 02/14/18 11:17 90 18 98 Room Air 21 Intake and Output 02/14/18 02/15/18 19:00 07:00 Intake Total 1002.5 ml 360 ml Balance 1002.5 ml 360 ml Free Water 60 ml 60 ml IV Total 482.5 ml Tube Feeding 460 ml 300 ml Objective HEENT: Negative. NECK: Supple. No significant adenopathy. LUNGS: Moderate breath sounds. reduced rhonchi. CARDIAC: Normal S1 and S2. Regular rate and rhythm. Slightly distant. No rubs or gallops. Soft systolic murmur. ABDOMEN: Soft, nontender, and nondistended. G-tube in place. EXTREMITIES: No cyanosis, clubbing, mild edema. NEUROLOGICAL: Reduced mental status. Only responds to pain x4. Microbiology Date/Time Source Procedure Growth Status 02/12/18 23:09 Blood Blood Culture - Preliminary NO GROWTH AFTER 48 HOURS Resulted 02/12/18 23:05 Blood Blood Culture - Preliminary NO GROWTH AFTER 48 HOURS Resulted 02/12/18 23:47 Nasal Nares MRSA Culture - Final NO METHICILLIN RESISTANT STAPH AUREUS... Complete 02/12/18 23:45 Urine,Clean Catch Urine Culture - Final Kaylah Albicans Complete Laboratory Tests 02/15/18 08:00: White Blood Count 4.4L, Red Blood Count 3.61L, Hemoglobin 9.0L, Hematocrit 28.1L , Mean Corpuscular Volume 78L, Mean Corpuscular Hemoglobin 25.0L, Mean Corpuscular Hemoglobin Concent 32.2, Red Cell Distribution Width 14.7, Platelet Count 204, Mean Platelet Volume 5.6L, Neutrophils (%) (Auto) 77.4H, Lymphocytes (%) (Auto) 7.6L, Monocytes (%) (Auto) 14.2H, Eosinophils (%) (Auto) 0.2, Basophils (%) (Auto) 0.6, Sodium Level 136, Potassium Level 3.6, Chloride Level 106, Carbon Dioxide Level 26, Anion Gap 4L, Blood Urea Nitrogen 14, Creatinine 0.7, Estimat Glomerular Filtration Rate , Glucose Level 130H, Calcium Level 8.7 , Total Bilirubin 0.5, Aspartate Amino Transf (AST/SGOT) 96H, Alanine Aminotransferase (ALT/SGPT) 64, Alkaline Phosphatase 301H, Total Protein 6.2L, Albumin 1.9L, Globulin 4.3, Albumin/Globulin Ratio 0.4L Current Medications Medications (Trade) Dose Ordered Sig/Iram Route PRN Reason Start Time Stop Time Status Last Admin Dose Admin Acetaminophen (Tylenol) 650 mg Q4H PRN GT Mild Pain/Temp > 100.5 02/13/18 09:30 03/15/18 09:29 Albuterol/ Ipratropium (Albuterol/ Ipratropium) 3 ml Q4HRT HHN 02/13/18 07:00 02/18/18 06:59 02/15/18 08:42 Amlodipine Besylate (Norvasc) 10 mg DAILY GT 02/13/18 09:30 03/15/18 09:29 02/15/18 08:45 Aspirin (ASA) 81 mg DAILY GT 02/13/18 09:30 03/15/18 09:29 02/15/18 08:45 Atorvastatin Calcium (Lipitor) 40 mg BEDTIME GT 02/13/18 21:00 03/15/18 20:59 02/14/18 21:50 Docusate Sodium (Colace) 100 mg BEDTIME GT 02/13/18 21:00 03/15/18 20:59 02/14/18 21:50 Famotidine (Pepcid) 20 mg DAILY GT 02/13/18 09:30 03/15/18 09:29 02/15/18 08:45 Heparin Sodium (Porcine) (Heparin 5000 units/ml) 5,000 units EVERY 12 HOURS SUBQ 02/14/18 21:00 03/16/18 20:59 02/15/18 08:47 Magnesium Hydroxide (Mom) 30 ml DAILYPRN PRN GT Constipation 02/13/18 09:30 03/15/18 09:29 Midodrine (Pro-Amatine) 2.5 mg THREE TIMES A DAY GT 02/13/18 09:30 03/15/18 09:29 02/15/18 08:45 Multivitamins (Multivitamins W/ Minerals 15ml Liquid) 15 ml DAILY GT 02/13/18 09:00 03/15/18 08:59 02/15/18 08:46 Piperacillin Sod/ Tazobactam Sod 3.375 gm/Sodium Chloride 110 ml @ 27.5 mls/hr EVERY 8 HOURS IVPB 02/13/18 06:00 02/18/18 05:59 02/15/18 06:01 Sodium Chloride 1,000 ml @ 75 mls/hr [id number] IV 02/13/18 05:00 03/15/18 04:59 02/14/18 21:50 Nakul Cisse MD Feb 15, 2018 09:35
--- NOTE | 2018-02-15 10:25 | General Progress Note ---
Assessment/Plan Problem List: (1) Aspiration pneumonia ICD Codes: J69.0 - Pneumonitis due to inhalation of food and vomit SNOMED: 760183680 (2) Dementia ICD Codes: F03.90 - Unspecified dementia without behavioral disturbance SNOMED: 38128048 (3) HTN (hypertension) ICD Codes: I10 - Essential (primary) hypertension SNOMED: 99275512 (4) BPH (benign prostatic hyperplasia) ICD Codes: N40.0 - Benign prostatic hyperplasia without lower urinary tract symptoms SNOMED: 639979226, 576320033 (5) Probable sepsis ICD Codes: A41.9 - Sepsis, unspecified organism SNOMED: 794367216 (6) UTI (urinary tract infection), bacterial ICD Codes: N39.0 - Urinary tract infection, site not specified; A49.9 - Bacterial infection, unspecified SNOMED: 726426929 Status: stable, progressing Assessment/Plan iv abx per id resp rx o2 as needed gt feeds asp precautions monitor cxr clinically improving- less congested Subjective ROS Limited/Unobtainable: No Constitutional: Reports: malaise, weakness HEENT: Reports: no symptoms Cardiovascular: Reports: no symptoms Respiratory: Reports: cough, shortness of breath Gastrointestinal/Abdominal: Reports: no symptoms Genitourinary: Reports: no symptoms Neurologic/Psychiatric: Reports: no symptoms Endocrine: Reports: no symptoms Hematologic/Lymphatic: Reports: no symptoms Allergies: Coded Allergies: No Known Allergies (Unverified , 01/27/17) All Systems: reviewed and negative except above Subjective no events. w/o congestion. no fever or chills. confused at baseline. follows some simple commands. labs and cxr reviewed. pulm and id input appreciated Objective Last 24 Hour Vital Signs Date Time Temp Pulse Resp B/P (MAP) Pulse Ox O2 Delivery O2 Flow Rate FiO2 02/15/18 08:50 92 20 99 Room Air 21 02/15/18 08:45 94 120/61 02/15/18 08:42 94 20 100 Room Air 21 02/15/18 08:00 Room Air 02/15/18 08:00 98.1 94 20 120/61 (80) 99 98.1 02/15/18 08:00 95 02/15/18 04:40 93 02/15/18 04:00 97.2 94 24 121/68 (85) 99 97.2 02/15/18 03:45 84 20 97 Room Air 21 02/15/18 03:45 82 18 96 Room Air 21 02/15/18 00:00 97.9 80 19 118/60 (79) 98 97.9 02/15/18 00:00 95 02/14/18 23:30 Room Air 21 02/14/18 23:30 Room Air 21 02/14/18 20:43 Room Air 02/14/18 20:00 97.9 79 20 118/60 (79) 98 97.9 02/14/18 20:00 80 02/14/18 20:00 86 18 98 Room Air 21 02/14/18 20:00 88 20 99 Room Air 21 02/14/18 16:09 88 18 98 Room Air 21 02/14/18 16:09 88 18 98 Room Air 21 02/14/18 16:00 98.1 79 19 124/57 (79) 98 98.1 02/14/18 16:00 81 02/14/18 12:00 81 02/14/18 12:00 97.8 84 18 104/59 (74) 98 97.8 02/14/18 11:26 92 18 100 Room Air 21 02/14/18 11:17 90 18 98 Room Air 21 Intake and Output 02/14/18 02/15/18 19:00 07:00 Intake Total 1002.5 ml 360 ml Balance 1002.5 ml 360 ml Free Water 60 ml 60 ml IV Total 482.5 ml Tube Feeding 460 ml 300 ml Laboratory Tests 02/15/18 08:00: White Blood Count 4.4L, Red Blood Count 3.61L, Hemoglobin 9.0L, Hematocrit 28.1L , Mean Corpuscular Volume 78L, Mean Corpuscular Hemoglobin 25.0L, Mean Corpuscular Hemoglobin Concent 32.2, Red Cell Distribution Width 14.7, Platelet Count 204, Mean Platelet Volume 5.6L, Neutrophils (%) (Auto) 77.4H, Lymphocytes (%) (Auto) 7.6L, Monocytes (%) (Auto) 14.2H, Eosinophils (%) (Auto) 0.2, Basophils (%) (Auto) 0.6, Sodium Level 136, Potassium Level 3.6, Chloride Level 106, Carbon Dioxide Level 26, Anion Gap 4L, Blood Urea Nitrogen 14, Creatinine 0.7, Estimat Glomerular Filtration Rate , Glucose Level 130H, Calcium Level 8.7 , Total Bilirubin 0.5, Aspartate Amino Transf (AST/SGOT) 96H, Alanine Aminotransferase (ALT/SGPT) 64, Alkaline Phosphatase 301H, Total Protein 6.2L, Albumin 1.9L, Globulin 4.3, Albumin/Globulin Ratio 0.4L Height (Feet): 5 Height (Inches): 1.00 Weight (Pounds): 131 General Appearance: WD/WN, alert Neck: supple Cardiovascular: normal rate, regular rhythm Respiratory/Chest: chest wall non-tender, lungs clear, normal breath sounds Abdomen: normal bowel sounds, non tender, soft, no organomegaly Edema: no edema noted Arm (L), no edema noted Arm (R), no edema noted Leg (L), no edema noted Leg (R), no edema noted Pedal (L), no edema noted Pedal (R), no edema noted Generalized Neurologic: responsive, disoriented Jarrod Vásquez MD Feb 15, 2018 10:25
[2018-02-15 12:00] VITALS: BP 116/58
[2018-02-15] MEDS ORDERED: Tubing IV Secondary IV ONE (15:12)
[2018-02-15] MEDS ORDERED: D5W 275ml ONE (15:35)
[2018-02-15 16:00] VITALS: BP 113/57
[2018-02-15 20:00] VITALS: BP 107/63
[2018-02-15] MEDS: Atorvastatin 20mg tab GT SCH (21:11)
[2018-02-15] MEDS: Docusate 100mg/10ml Liq GT SCH (21:11)
[2018-02-16] VITALS: BP 116/76
[2018-02-16] MEDS: Albuterol/Ipratropium 3ml neb HHN SCH ×6 (03:36→23:50)
[2018-02-16 04:00] VITALS: BP 128/70
[2018-02-16] MEDS: Piperacillin/Tazobactam 3.375 GM in NS 110 ML IVPB SCH ×3 (05:36→21:50)
[2018-02-16 08:00] VITALS: BP 109/61
--- NOTE | 2018-02-16 08:09 | Pulmonology Progress Note ---
Assessment/Plan Assessment/Plan IMPRESSION: Pneumonitis, mild congestion, acute on chronic encephalopathy, G-tube, concerning for aspiration, concerning for aspiration pneumonitis, sepsis, elevated liver enzymes, dysphagia. PLAN antibiotics as is monitor fluid status oxygen as needed- low flow aspiration precautions respiratory care noted follow up imaging for change in am impression, plan, and exam edited and reviewed in detail care discussed with RN Subjective Allergies: Coded Allergies: No Known Allergies (Unverified , 01/27/17) Subjective comfortable no distress care noted Objective Last 24 Hour Vital Signs Date Time Temp Pulse Resp B/P (MAP) Pulse Ox O2 Delivery O2 Flow Rate FiO2 02/16/18 07:23 100 20 99 Room Air 21 02/16/18 07:15 101 20 97 Room Air 21 02/16/18 04:31 81 02/16/18 04:00 97.0 92 19 128/70 (89) 97 97.0 02/16/18 03:46 81 20 99 Room Air 02/16/18 03:36 83 16 95 Room Air 02/16/18 00:00 84 20 99 Room Air 02/16/18 00:00 97.0 89 21 116/76 (89) 98 97.0 02/15/18 23:46 86 20 98 Room Air 02/15/18 23:29 81 02/15/18 22:21 74 02/15/18 21:00 Room Air 02/15/18 20:34 87 20 99 Room Air 21 02/15/18 20:23 87 20 98 Room Air 21 02/15/18 20:00 97.2 74 20 107/63 (78) 98 97.2 02/15/18 16:00 79 02/15/18 16:00 98.0 89 22 113/57 (75) 97 98.0 02/15/18 15:30 80 20 99 Room Air 21 02/15/18 15:30 81 20 98 Room Air 21 02/15/18 12:56 95 20 96 Room Air 21 02/15/18 12:53 79 20 97 Room Air 21 02/15/18 12:00 97.6 81 21 116/58 (77) 99 97.6 02/15/18 12:00 80 02/15/18 08:50 92 20 99 Room Air 21 02/15/18 08:45 94 120/61 02/15/18 08:42 94 20 100 Room Air 21 Intake and Output 02/15/18 02/16/18 19:00 07:00 Intake Total 1370.0 ml 522.5 ml Balance 1370.0 ml 522.5 ml Free Water 80 ml IV Total 690.0 ml 522.5 ml Tube Feeding 600 ml # Voids 3 2 # Bowel Movements 1 Objective HEENT: Negative. NECK: Supple. No significant adenopathy. LUNGS: Moderate breath sounds. reduced rhonchi. CARDIAC: Normal S1 and S2. Regular rate and rhythm. Slightly distant. No rubs or gallops. Soft systolic murmur. ABDOMEN: Soft, nontender, and nondistended. G-tube in place. EXTREMITIES: No cyanosis, clubbing, mild edema. NEUROLOGICAL: Reduced mental status. Only responds to pain x4. Current Medications Medications (Trade) Dose Ordered Sig/Iram Route PRN Reason Start Time Stop Time Status Last Admin Dose Admin Acetaminophen (Tylenol) 650 mg Q4H PRN GT Mild Pain/Temp > 100.5 02/13/18 09:30 03/15/18 09:29 Albuterol/ Ipratropium (Albuterol/ Ipratropium) 3 ml Q4HRT HHN 02/13/18 07:00 02/18/18 06:59 02/16/18 07:14 Amlodipine Besylate (Norvasc) 10 mg DAILY GT 02/13/18 09:30 03/15/18 09:29 02/15/18 08:45 Aspirin (ASA) 81 mg DAILY GT 02/13/18 09:30 03/15/18 09:29 02/15/18 08:45 Atorvastatin Calcium (Lipitor) 40 mg BEDTIME GT 02/13/18 21:00 03/15/18 20:59 02/15/18 21:11 Docusate Sodium (Colace) 100 mg BEDTIME GT 02/13/18 21:00 03/15/18 20:59 02/15/18 21:11 Famotidine (Pepcid) 20 mg DAILY GT 02/13/18 09:30 03/15/18 09:29 02/15/18 08:45 Heparin Sodium (Porcine) (Heparin 5000 units/ml) 5,000 units EVERY 12 HOURS SUBQ 02/14/18 21:00 03/16/18 20:59 02/15/18 21:12 Magnesium Hydroxide (Mom) 30 ml DAILYPRN PRN GT Constipation 02/13/18 09:30 03/15/18 09:29 Midodrine (Pro-Amatine) 2.5 mg THREE TIMES A DAY GT 02/13/18 09:30 03/15/18 09:29 02/15/18 17:11 Multivitamins (Multivitamins W/ Minerals 15ml Liquid) 15 ml DAILY GT 02/13/18 09:00 03/15/18 08:59 02/15/18 08:46 Piperacillin Sod/ Tazobactam Sod 3.375 gm/Sodium Chloride 110 ml @ 27.5 mls/hr EVERY 8 HOURS IVPB 02/13/18 06:00 02/18/18 05:59 02/16/18 05:36 Sodium Chloride 1,000 ml @ 75 mls/hr [id number] IV 02/13/18 05:00 03/15/18 04:59 02/15/18 23:35 Nakul Cisse MD Feb 16, 2018 08:09
[2018-02-16] MEDS: Aspirin Baby 81mg GT SCH (09:30)
[2018-02-16] MEDS: Heparin 5000 units/ml inj SUBQ SCH ×2 (09:32→20:58)
[2018-02-16] MEDS: Multivitamins W/Minerals 15 ML UDC GT SCH (09:32)
--- NOTE | 2018-02-16 11:04 | Infectious Diseases Prog Note ---
Assessment/Plan Assessment/Plan A; sepsis pneumonia Fungal UTI Anemia HPN P; Continue Zosyn Add Fluconazole Subjective ROS Limited/Unobtainable: Yes Allergies: Coded Allergies: No Known Allergies (Unverified , 01/27/17) Objective Vital Signs Last 24 Hour Vital Signs Date Time Temp Pulse Resp B/P (MAP) Pulse Ox O2 Delivery O2 Flow Rate FiO2 02/16/18 09:31 97 109/61 02/16/18 08:00 98.3 97 18 109/61 (77) 98 98.3 02/16/18 08:00 92 02/16/18 07:23 100 20 99 Room Air 21 02/16/18 07:15 101 20 97 Room Air 02/16/18 04:31 81 02/16/18 04:00 97.0 92 19 128/70 (89) 97 97.0 02/16/18 03:46 81 20 99 Room Air 02/16/18 03:36 83 16 95 Room Air 02/16/18 00:00 84 20 99 Room Air 02/16/18 00:00 97.0 89 21 116/76 (89) 98 97.0 02/15/18 23:46 86 20 98 Room Air 02/15/18 23:29 81 02/15/18 22:21 74 02/15/18 21:00 Room Air 02/15/18 20:34 87 20 99 Room Air 21 02/15/18 20:23 87 20 98 Room Air 21 02/15/18 20:00 97.2 74 20 107/63 (78) 98 97.2 02/15/18 16:00 79 02/15/18 16:00 98.0 89 22 113/57 (75) 97 98.0 02/15/18 15:30 80 20 99 Room Air 21 02/15/18 15:30 81 20 98 Room Air 02/15/18 12:56 95 20 96 Room Air 02/15/18 12:53 79 20 97 Room Air 02/15/18 12:00 97.6 81 21 116/58 (77) 99 97.6 02/15/18 12:00 80 Height (Feet): 5 Height (Inches): 1.00 Weight (Pounds): 131 HEENT: mucous membranes moist Respiratory/Chest: lungs clear Cardiovascular: normal rate Abdomen: soft, non tender Extremities: no edema Neurologic/Psychiatric: other - sleeping Current Medications Medications (Trade) Dose Ordered Sig/Iram Route PRN Reason Start Time Stop Time Status Last Admin Dose Admin Acetaminophen (Tylenol) 650 mg Q4H PRN GT Mild Pain/Temp > 100.5 02/13/18 09:30 03/15/18 09:29 Albuterol/ Ipratropium (Albuterol/ Ipratropium) 3 ml Q4HRT HHN 02/13/18 07:00 02/18/18 06:59 02/16/18 07:14 Amlodipine Besylate (Norvasc) 10 mg DAILY GT 02/13/18 09:30 03/15/18 09:29 02/16/18 09:31 Aspirin (ASA) 81 mg DAILY GT 02/13/18 09:30 03/15/18 09:29 02/16/18 09:30 Atorvastatin Calcium (Lipitor) 40 mg BEDTIME GT 02/13/18 21:00 03/15/18 20:59 02/15/18 21:11 Docusate Sodium (Colace) 100 mg BEDTIME GT 02/13/18 21:00 03/15/18 20:59 02/15/18 21:11 Famotidine (Pepcid) 20 mg DAILY GT 02/13/18 09:30 03/15/18 09:29 02/16/18 09:31 Heparin Sodium (Porcine) (Heparin 5000 units/ml) 5,000 units EVERY 12 HOURS SUBQ 02/14/18 21:00 03/16/18 20:59 02/16/18 09:32 Magnesium Hydroxide (Mom) 30 ml DAILYPRN PRN GT Constipation 02/13/18 09:30 03/15/18 09:29 Midodrine (Pro-Amatine) 2.5 mg THREE TIMES A DAY GT 02/13/18 09:30 03/15/18 09:29 02/16/18 09:30 Multivitamins (Multivitamins W/ Minerals 15ml Liquid) 15 ml DAILY GT 02/13/18 09:00 03/15/18 08:59 02/16/18 09:32 Piperacillin Sod/ Tazobactam Sod 3.375 gm/Sodium Chloride 110 ml @ 27.5 mls/hr EVERY 8 HOURS IVPB 02/13/18 06:00 02/18/18 05:59 02/16/18 05:36 Sodium Chloride 1,000 ml @ 75 mls/hr [id number] IV 02/13/18 05:00 03/15/18 04:59 02/15/18 23:35 Rahul Shen MD Feb 16, 2018 11:04
--- NOTE | 2018-02-16 11:16 | General Progress Note ---
Assessment/Plan Problem List: (1) Aspiration pneumonia ICD Codes: J69.0 - Pneumonitis due to inhalation of food and vomit SNOMED: 543479734 (2) Dementia ICD Codes: F03.90 - Unspecified dementia without behavioral disturbance SNOMED: 18459412 (3) HTN (hypertension) ICD Codes: I10 - Essential (primary) hypertension SNOMED: 58441566 (4) BPH (benign prostatic hyperplasia) ICD Codes: N40.0 - Benign prostatic hyperplasia without lower urinary tract symptoms SNOMED: 513559611, 620710086 (5) Probable sepsis ICD Codes: A41.9 - Sepsis, unspecified organism SNOMED: 315447432 (6) UTI (urinary tract infection), bacterial ICD Codes: N39.0 - Urinary tract infection, site not specified; A49.9 - Bacterial infection, unspecified SNOMED: 575168048 Status: stable, progressing Assessment/Plan iv abx per id resp rx o2 as needed gt feeds asp precautions monitor cxr clinically improving- less congested Subjective ROS Limited/Unobtainable: No Constitutional: Reports: malaise, weakness HEENT: Reports: no symptoms Cardiovascular: Reports: no symptoms Respiratory: Reports: no symptoms Gastrointestinal/Abdominal: Reports: no symptoms Genitourinary: Reports: no symptoms Neurologic/Psychiatric: Reports: no symptoms Endocrine: Reports: no symptoms Hematologic/Lymphatic: Reports: anemia Allergies: Coded Allergies: No Known Allergies (Unverified , 01/27/17) All Systems: reviewed and negative except above Subjective no events. decreased congestion. no fever or chills. confused at baseline. follows some simple commands. labs and cxr reviewed. pulm and id input appreciated Objective Last 24 Hour Vital Signs Date Time Temp Pulse Resp B/P (MAP) Pulse Ox O2 Delivery O2 Flow Rate FiO2 02/16/18 09:31 97 109/61 02/16/18 09:00 Room Air 02/16/18 08:00 98.3 97 18 109/61 (77) 98 98.3 02/16/18 08:00 92 02/16/18 07:23 100 20 99 Room Air 21 02/16/18 07:15 101 20 97 Room Air 21 02/16/18 04:31 81 02/16/18 04:00 97.0 92 19 128/70 (89) 97 97.0 02/16/18 03:46 81 20 99 Room Air 21 02/16/18 03:36 83 16 95 Room Air 21 02/16/18 00:00 84 20 99 Room Air 21 02/16/18 00:00 97.0 89 21 116/76 (89) 98 97.0 02/15/18 23:46 86 20 98 Room Air 21 02/15/18 23:29 81 02/15/18 22:21 74 02/15/18 21:00 Room Air 02/15/18 20:34 87 20 99 Room Air 21 02/15/18 20:23 87 20 98 Room Air 21 02/15/18 20:00 97.2 74 20 107/63 (78) 98 97.2 02/15/18 16:00 79 02/15/18 16:00 98.0 89 22 113/57 (75) 97 98.0 02/15/18 15:30 80 20 99 Room Air 21 02/15/18 15:30 81 20 98 Room Air 21 02/15/18 12:56 95 20 96 Room Air 02/15/18 12:53 79 20 97 Room Air 21 02/15/18 12:00 97.6 81 21 116/58 (77) 99 97.6 02/15/18 12:00 80 Intake and Output 02/15/18 02/16/18 19:00 07:00 Intake Total 1370.0 ml 522.5 ml Balance 1370.0 ml 522.5 ml Free Water 80 ml IV Total 690.0 ml 522.5 ml Tube Feeding 600 ml # Voids 3 2 # Bowel Movements 1 Height (Feet): 5 Height (Inches): 1.00 Weight (Pounds): 131 Objective General Appearance: WD/WN, alert Neck: supple Cardiovascular: normal rate, regular rhythm Respiratory/Chest: chest wall non-tender, lungs clear, normal breath sounds Abdomen: normal bowel sounds, non tender, soft, no organomegaly Edema: no edema noted Arm (L), no edema noted Arm (R), no edema noted Leg (L), no edema noted Leg (R), no edema noted Pedal (L), no edema noted Pedal (R), no edema noted Generalized Neurologic: responsive, disoriented Jarrod Vásquez MD Feb 16, 2018 11:16
[2018-02-16 12:00] VITALS: BP 115/61
[2018-02-16] MEDS ORDERED: Fluconazole 100mg tab ORAL SCH (12:00)
--- NOTE | 2018-02-16 12:22 | Cardiology Report ---
APPROVED REPORT EKG Measurement Heart [id number] Normal sinus rhythm Septal infarct, age undetermined Abnormal ECG
[2018-02-16 15:42] VITALS: BP 117/69
[2018-02-16 20:00] VITALS: BP 118/58
[2018-02-16] MEDS: Docusate 100mg/10ml Liq GT SCH (20:54)
[2018-02-16] MEDS: Atorvastatin 20mg tab GT SCH (20:54)
[2018-02-17] VITALS: BP 112/55
[2018-02-17] MEDS: Albuterol/Ipratropium 3ml neb HHN SCH (03:38)
[2018-02-17 04:00] VITALS: BP 110/60
[2018-02-17] MEDS: Piperacillin/Tazobactam 3.375 GM in NS 110 ML IVPB SCH (06:01)
[2018-02-17 08:00] VITALS: BP 118/68
--- NOTE | 2018-02-17 08:14 | Pulmonology Progress Note ---
Assessment/Plan Assessment/Plan IMPRESSION: Pneumonitis, mild congestion, acute on chronic encephalopathy, G-tube, concerning for aspiration, concerning for aspiration pneumonitis, sepsis, elevated liver enzymes, dysphagia. PLAN antibiotics choice noted monitor fluid status oxygen as needed- low flow and stable aspiration precautions respiratory care noted follow up imaging for change today; ordered GT feeds impression, plan, and exam edited and reviewed in detail care discussed with RN Subjective ROS Limited/Unobtainable: Yes Allergies: Coded Allergies: No Known Allergies (Unverified , 01/27/17) Subjective comfortable no distress overnight care noted and reviewed Objective Last 24 Hour Vital Signs Date Time Temp Pulse Resp B/P (MAP) Pulse Ox O2 Delivery O2 Flow Rate FiO2 02/17/18 04:00 90 02/17/18 04:00 97.2 98 24 110/60 (77) 100 97.2 02/17/18 03:39 88 20 98 Room Air 21 02/17/18 03:38 85 18 97 Room Air 02/17/18 00:00 82 02/17/18 00:00 97.3 95 23 112/55 (74) 100 97.3 02/16/18 23:58 94 20 98 Room Air 21 02/16/18 23:57 86 18 98 Room Air 21 02/16/18 21:00 Room Air 02/16/18 20:00 97.7 89 30 118/58 (78) 98 97.7 02/16/18 20:00 97 02/16/18 19:48 91 20 98 Room Air 21 02/16/18 19:47 88 18 97 Room Air 02/16/18 16:49 88 20 100 Room Air 02/16/18 16:47 88 20 96 Room Air 02/16/18 16:00 84 02/16/18 15:42 97.9 78 20 117/69 (85) 98 97.9 02/16/18 12:00 84 02/16/18 12:00 98.0 92 20 115/61 (79) 97 98.0 02/16/18 11:25 79 20 100 Room Air 21 02/16/18 11:19 89 20 98 Room Air 21 02/16/18 09:31 97 109/61 02/16/18 09:00 Room Air Intake and Output 02/16/18 02/17/18 19:00 07:00 Intake Total 635 ml Balance 635 ml Intake Oral 0 ml Free Water 60 ml IV Total 525 ml Tube Feeding 50 ml # Voids 2 2 # Bowel Movements 2 Objective HEENT: Negative. NECK: Supple. No significant adenopathy. LUNGS: Moderate breath sounds. reduced rhonchi. CARDIAC: Normal S1 and S2. Regular rate and rhythm. Slightly distant. No rubs or gallops. Soft systolic murmur. ABDOMEN: Soft, nontender, and nondistended. G-tube in place. EXTREMITIES: No cyanosis, clubbing, mild edema. NEUROLOGICAL: Reduced mental status. Only responds to pain x4. Current Medications Medications (Trade) Dose Ordered Sig/Iram Route PRN Reason Start Time Stop Time Status Last Admin Dose Admin Acetaminophen (Tylenol) 650 mg Q4H PRN GT Mild Pain/Temp > 100.5 02/13/18 09:30 03/15/18 09:29 02/16/18 20:55 Albuterol/ Ipratropium (Albuterol/ Ipratropium) 3 ml Q4HRT HHN 02/13/18 07:00 02/18/18 06:59 02/17/18 03:38 Amlodipine Besylate (Norvasc) 10 mg DAILY GT 02/13/18 09:30 03/15/18 09:29 02/16/18 09:31 Aspirin (ASA) 81 mg DAILY GT 02/13/18 09:30 03/15/18 09:29 02/16/18 09:30 Atorvastatin Calcium (Lipitor) 40 mg BEDTIME GT 02/13/18 21:00 03/15/18 20:59 02/16/18 20:54 Docusate Sodium (Colace) 100 mg BEDTIME GT 02/13/18 21:00 03/15/18 20:59 02/16/18 20:54 Famotidine (Pepcid) 20 mg DAILY GT 02/13/18 09:30 03/15/18 09:29 02/16/18 09:31 Fluconazole (Diflucan) 100 mg DAILY@1200 ORAL 02/16/18 12:00 02/23/18 11:59 02/16/18 12:38 Heparin Sodium (Porcine) (Heparin 5000 units/ml) 5,000 units EVERY 12 HOURS SUBQ 02/14/18 21:00 03/16/18 20:59 02/16/18 20:58 Magnesium Hydroxide (Mom) 30 ml DAILYPRN PRN GT Constipation 02/13/18 09:30 03/15/18 09:29 Midodrine (Pro-Amatine) 2.5 mg THREE TIMES A DAY GT 02/13/18 09:30 03/15/18 09:29 02/16/18 18:47 Multivitamins (Multivitamins W/ Minerals 15ml Liquid) 15 ml DAILY GT 02/13/18 09:00 03/15/18 08:59 02/16/18 09:32 Piperacillin Sod/ Tazobactam Sod 3.375 gm/Sodium Chloride 110 ml @ 27.5 mls/hr EVERY 8 HOURS IVPB 02/13/18 06:00 02/18/18 05:59 02/17/18 06:01 Sodium Chloride 1,000 ml @ 75 mls/hr [id number] IV 02/13/18 05:00 03/15/18 04:59 02/16/18 13:47 Nakul Cisse MD Feb 17, 2018 08:14
[2018-02-17 09:00] VITALS: BP 118/68
[2018-02-17] MEDS: Aspirin Baby 81mg GT SCH (09:00)
[2018-02-17] MEDS: Multivitamins W/Minerals 15 ML UDC GT SCH (09:00)
[2018-02-17] MEDS: Heparin 5000 units/ml inj SUBQ SCH (09:06)
--- NOTE | 2018-02-19 09:21 | Discharge Summary ---
Discharge Summary Discharge Summary _ DATE OF ADMISSION: 02/12/2018 DATE OF DISCHARGE: 2017 REASON FOR ADMISSION: 72 years old male , resident of detention facility, with past medical history of encephalopathy, CVA, dysphagia, failure to thrive, prior history of pneumonia, UTI sepsis, hypertension, was sent from the detention [facility] for evaluation due to cough, congestion, shortness of breath and fever. Patient earlier that day was noted to have a low-grade fever. Chest x-ray revealed infiltrate, and patient was started on antibiotic therapy. Later during the day, patient had persistent fever and congestion, became tachycardic hypotensive and hypoxic . Patient was subsequently transferred to emergency room for further evaluation and management. Upon evaluation in emergency department , patient was febrile, tachycardic, tachypneic. Chest x-ray with evidence of pneumonia . Urinalysis with evidence of urinary tract infection. Troponin negative. Lactic acid within normal limits. Lipase 434. AST 123 ALT 80 . Patient was pancultured and started on aggressive fluid resuscitation and empiric antibiotics Patient admitted with diagnoses of sepsis, pneumonia, urinary tract infection, elevated liver function tests, rule out cholecystitis, toxic metabolic encephalopathy, dysphagia. CONSULTANTS: pulmonary ID specialist [facility] COURSE: Patient admitted to telemetry floor. Patient started on aggressive fluid resuscitation and broad-spectrum antibiotic. ID and pulmonary consults were requested. Supplemental oxygen provided to keep pulse oximetry above 92%. Pulmonary toilet provided around the clock and as needed. Patient was suctioned as needed. Patient follow-up with chest x-ray. Blood culture were negative. Urine culture revealed Kaylah. Antibiotic regimen optimized as per ID recommendations. DVT and GI prophylaxis provided. Strict aspiration precaution maintained . G-tube feeding resumed. Patient was able to tolerate G-tube feeding. G-tube site care provided. Renal parameters and electrolytes were closely monitored, electrolytes were corrected as needed. DVT and GI prophylaxis provided. Bowel regimen instituted. Blood pressure was closely monitored. Patient was on midodrine with stable blood pressure. Statin and antiplatelet therapy with aspirin were resumed. Liver enzymes trending down. Abdominal ultrasound revealed no gallstones no biliary duct dilatation.Question of a chronic liver disease with mild nodularity liver surface. Lipase down to normal. Bowel regimen instituted. Patient clinically improved and was stable for discharge back to [facility] for continuation of care FINAL DIAGNOSES: Probably sepsis Likely aspiration pneumonia Urinary tract infection with Kaylah Acute on chronic toxic metabolic encephalopathy Dysphagia, G-tube Elevated liver enzymes History of hypertension BPH DISCHARGE MEDICATIONS: See Medication Reconciliation list. DISCHARGE INSTRUCTIONS: Patient was discharged to detention facility. Follow up with medical doctor at the facility. I have been assigned to dictate discharge summary for this account. I was not involved in the patient's management. Mandi Collazo NP Feb 19, 2018 09:21
== END 2018-02-17 12:00 | DRG 871 ==
LOC: EDBD 22:11 → EMR 22:25 → 2W 23:03 → EDBEDREQ 02-13 00:13 → 2W 02-13 05:00 → 2E 02-13 14:35
DX: A41.9 Sepsis, unspecified organism (principal); J69.0 Pneumonitis due to inhalation of food and vomit; G92 Toxic encephalopathy; Z43.1 Encounter for attention to gastrostomy; B37.49 Other urogenital candidiasis; F03.90 Unspecified dementia, unspecified severity, without behavioral disturbance, psychotic disturbance, mood disturbance, and anxiety; I10 Essential (primary) hypertension; N40.0 Benign prostatic hyperplasia without lower urinary tract symptoms; R13.10 Dysphagia, unspecified
CPT/HCPCS: 36415; 71045; 76700; 80053; 81003; 82550; 82553; 83605; 83690; 83735; 83880; 84484; 85025; 87040; 87081; 87086; 93005; 94640; 94664; 99285; J7620; J8499

== ENCOUNTER 2018-02-20 16:14 | Inpatient (IN) | payer MEDICARE, OTHER ==
[~2018-02-20] VITALS: Ht 177.8 cm; Wt 59.4 kg
[~2018-02-20 16:14] MED LIST changes: +COLACE100 MG ORAL; +DUONEB 0.5-3(2.53 ML HHN; +PRO-AMATINE2.5 MG ORAL; +SENNA LAXATIVE8.6 MG GT; +VITAMIN B 12 SQ
[2018-02-20 16:20] VITALS: BP 104/57
--- NOTE | 2018-02-20 16:37 | Emergency Room Report ---
History of Present Illness General Chief Complaint: Altered Level of Consciousness Source: Medical Record, EMS Present Illness HPI Patient presents with worsening rested her distress Patient had fairly extensive hospital stay recently with aspiration pneumonia patient appeared to be worsening at the nursing facility There was no reports of vomiting or diarrhea patient himself was not able to provide history Significant underlying history of dementia Also acute respiratory distress Unknown regarding fevers Allergies: Coded Allergies: No Known Allergies (Unverified , 01/27/17) Patient History Limited by: medical condition Past Medical History: see triage record Pertinent Family History: none Reviewed Nursing Documentation: PMH: Agreed; PSxH: Agreed Nursing Documentation-PM Past Medical History: No History, Except For Hx Cardiac Problems: Yes - tachycardia. Hyperlipidemia. Hx Hypertension: Yes - BPH. Orthostatic hypotension. Hx Cancer: No Hx Gastrointestinal Problems: Yes - Dysphagia. GERD. Hx Neurological Problems: Yes - syphilis, encephalopathy Hx Cerebrovascular Accident: Yes Hx Transient Ischemic Attacks: Yes Hx Dementia: Yes Hx Seizures: Yes Hx Syncope: Yes Review of Systems All Other Systems: limited - Other than the ones mentioned in the history of present illness all others are reviewed however they do stay limited due to the patient's mental status Physical Exam Vital Signs Date Time Temp Pulse Resp B/P (MAP) Pulse Ox O2 Delivery O2 Flow Rate FiO2 02/20/18 16:08 98.3 113 20 123/65 97 Room Air 98.2 Sp02 EP Interpretation: reviewed, normal General Appearance: moderate distress Head: normocephalic, atraumatic Eyes: bilateral eye EOMI ENT: dry mucus membranes Neck: full range of motion, supple, thyroid normal Respiratory: crackles - Patient is tachypneic, crackles bilaterally, no obvious retractions at this time Cardiovascular #1: no edema, no gallop, tachycardia Gastrointestinal: non tender, soft Musculoskeletal: other - Patient does not follow commands moves both upper extremities towards physical stimuli appears chronically debilitated Neurologic: responsive - To physical stimuli Skin: normal color, no rash Lymphatic: no adenopathy Medical Decision Making Diagnostic Impression: Primary Impression: Sepsis Additional Impressions: Hyponatremia Respiratory distress ER Course Patient is a fairly complex patient with multiple differential to consideration including but not limited to cardiac cardiopulmonary and vascular emergencies Patient x-ray looks fairly similar to previous there is appearance of interstitial disease versus pulmonary congestion Versus infiltrates patchy Patient CT head does not show any acute disease sodium is significantly low and this is replaced Patient admitted for further inpatient care in serious condition Labs Test 02/20/18 16:42 02/20/18 17:03 02/20/18 17:47 White Blood Count 7.9 K/UL (4.8-10.8) Red Blood Count 3.94 M/UL (4.70-6.10) Hemoglobin 9.8 G/DL (14.2-18.0) Hematocrit 29.5 % (42.0-52.0) Mean Corpuscular Volume 75 FL (80-99) Mean Corpuscular Hemoglobin 24.9 PG (27.0-31.0) Mean Corpuscular Hemoglobin Concent 33.2 G/DL (32.0-36.0) Red Cell Distribution Width 14.8 % (11.6-14.8) Platelet Count 193 K/UL (150-450) Mean Platelet Volume 5.2 FL (6.5-10.1) Neutrophils (%) (Auto) 88.9 % (45.0-75.0) Lymphocytes (%) (Auto) 3.3 % (20.0-45.0) Monocytes (%) (Auto) 7.4 % (1.0-10.0) Eosinophils (%) (Auto) 0.0 % (0.0-3.0) Basophils (%) (Auto) 0.4 % (0.0-2.0) Sodium Level 125 MMOL/L (136-145) Potassium Level 3.7 MMOL/L (3.5-5.1) Chloride Level 92 MMOL/L (98-107) Carbon Dioxide Level 25 MMOL/L (21-32) Anion Gap 8 mmol/L (5-15) Blood Urea Nitrogen 14 mg/dL (7-18) Creatinine 0.9 MG/DL (0.55-1.30) Estimat Glomerular Filtration Rate mL/min (>60) Glucose Level 125 MG/DL (74-106) Lactic Acid Level 1.60 mmol/L (0.4-2.0) Calcium Level 9.4 MG/DL (8.5-10.1) Total Bilirubin 0.6 MG/DL (0.2-1.0) Aspartate Amino Transf (AST/SGOT) 62 U/L (15-37) Alanine Aminotransferase (ALT/SGPT) 38 U/L (12-78) Alkaline Phosphatase 275 U/L (46-116) Total Creatine Kinase 47 U/L (26-308) Creatine Kinase MB < 0.5 NG/ML (0.0-3.6) Creatine Kinase MB Relative Index 1.0 Troponin I 0.000 ng/mL (0.000-0.056) Pro-B-Type Natriuretic Peptide 189 pg/mL (0-125) Total Protein 6.7 G/DL (6.4-8.2) Albumin 2.2 G/DL (3.4-5.0) Globulin 4.5 g/dL Albumin/Globulin Ratio 0.5 (1.0-2.7) Lipase 340 U/L (73-393) Arterial Blood pH 7.530 (7.350-7.450) Arterial Blood Partial Pressure CO2 29.2 mmHg (35.0-45.0) Arterial Blood Partial Pressure O2 74.4 mmHg (75.0-100.0) Arterial Blood HCO3 23.9 mmol/L (22.0-26.0) Arterial Blood Oxygen Saturation 95.5 % (92.0-98.0) Arterial Blood Base Excess 1.6 Derek Test Positive Urine Color Yellow Urine Appearance Slightly cloudy Urine pH 6 (4.5-8.0) Urine Specific [place] 1.005 (1.005-1.035) Urine Protein Negative (NEGATIVE) Urine Glucose (UA) Negative (NEGATIVE) Urine Ketones Negative (NEGATIVE) Urine Occult Blood 2+ (NEGATIVE) Urine Nitrite Negative (NEGATIVE) Urine Bilirubin Negative (NEGATIVE) Urine Urobilinogen 1 MG/DL (0.0-1.0) Urine Leukocyte Esterase 3+ (NEGATIVE) Urine RBC 10-15 /HPF (0 - 0) Urine WBC 15-20 /HPF (0 - 0) Urine Squamous Epithelial Cells None /LPF (NONE/OCC) Urine Amorphous Sediment Moderate /LPF (NONE) Urine Bacteria Few /HPF (NONE) Urine Yeast Few /HPF (NONE) EKG Diagnostic Results Rate: normal Rhythm: NSR ST Segments: other - Nonspecific ST T-wave changes Rhythm Strip Diag. Results EP Interpretation: yes Rate: 66 Rhythm: NSR, no PVC's, no ectopy Chest X-Ray Diagnostic Results Chest X-Ray Diagnostic Results : Chest X-Ray Ordered: Yes # of Views/Limited/Complete: 1 View Indication: Shortness of Breath EP Interpretation: Yes Interpretation: no effusion, other - Interstitial disease appearance pulmonary congestion possible patchy infiltrates, significant similarity to previous,, Impression: Other - Interstitial disease, pulmonary congestion Electronically Signed by: Ralph Hallman DO CT/MRI/US Diagnostic Results CT/MRI/US Diagnostic Results : Impression CT headImpression: Chronic and age-related changes Multiple old infarcts, as described Sinus disease Negative for acute intracranial bleed or mass effect Last Vital Signs Date Time Temp Pulse Resp B/P (MAP) Pulse Ox O2 Delivery O2 Flow Rate FiO2 02/20/18 16:08 98.3 113 20 123/65 97 Room Air 98.2 Status: improved Disposition: ADMITTED INPATIENT Condition: Serious Ralph Hallman DO Feb 20, 2018 16:37
[2018-02-20 16:55] LABS: BASOPHILS % (AUTO) 0.4 % (0.0-2.0); HEMATOCRIT 29.5 % (42.0-52.0); HEMOGLOBIN 9.8 G/DL (14.2-18.0); LYMPHOCYTES % (AUTO) 3.3 % (20.0-45.0); MEAN CORPUSCULAR VOLUME 75 FL (80-99); MONOCYTES % (AUTO) 7.4 % (1.0-10.0); NEUTROPHILS % (AUTO) 88.9 % (45.0-75.0); PLATELET COUNT 193 K/UL (150-450); RED BLOOD COUNT 3.94 M/UL (4.70-6.10); RED CELL DISTRIBUTION WIDTH 14.8 % (11.6-14.8); WHITE BLOOD COUNT 7.9 K/UL (4.8-10.8)
[2018-02-20 17:30] VITALS: BP 112/61
[2018-02-20 17:31] LABS: ANION GAP 8 mmol/L (5-15); BLOOD UREA NITROGEN 14 mg/dL (7-18); CALCIUM 9.4 MG/DL (8.5-10.1); CARBON DIOXIDE 25 MMOL/L (21-32); CHLORIDE 92 MMOL/L (98-107); CREATININE 0.9 MG/DL (0.55-1.30); POTASSIUM 3.7 MMOL/L (3.5-5.1); SODIUM 125 MMOL/L (136-145)
--- NOTE | 2018-02-20 17:31 | Diagnostic Imaging Report ---
Indication: Shortness of Technique: One view of the chest Comparison: 02/15/2018 Findings: Again demonstrated is diffuse micronodular interstitial disease, appearing unchanged since prior exam. There are scattered airspace opacities in the right midlung, likewise unchanged. Pleural spaces are probably clear. The heart size is normal. Impression: Diffuse micronodular interstitial disease, with associated patchy airspace opacities, fairly large differential, unchanged since 02/15/2018
[2018-02-20] MEDS ORDERED: Acetaminophen 650mg/20.3ml GT ONE ×2 (17:45)
[2018-02-20 17:59] LABS: APPEARANCE,URINE SLIGHTLY CLOUDY; BILIRUBIN, URINE NEGATIVE (NEGATIVE); GLUCOSE, URINE (UA) NEGATIVE (NEGATIVE); KETONES,URINE NEGATIVE (NEGATIVE); LEUKOCYTE ESTERASE ,URINE 3+ (NEGATIVE); NITRITE,URINE NEGATIVE (NEGATIVE); PH,URINE 6 (4.5-8.0); PROTEIN,URINE NEGATIVE (NEGATIVE); UROBILINOGEN,URINE 1 MG/DL (0.0-1.0)
[2018-02-20 18:01] LABS: COLOR,URINE YELLOW
[2018-02-20 18:04] LABS: ALANINE AMINOTRANSFERASE 38 U/L (12-78); ALBUMIN 2.2 G/DL (3.4-5.0); ALBUMIN/GLOBULIN RATIO 0.5 (1.0-2.7); ALKALINE PHOSPHATASE 275 U/L (46-116); ASPARTATE AMINO TRANSFERASE 62 U/L (15-37); BILIRUBIN,TOTAL 0.6 MG/DL (0.2-1.0); CKMB < 0.5 NG/ML (0.0-3.6); CREATINE KINASE 47 U/L (26-308)
[2018-02-20] MEDS ORDERED: Sodium Chloride 500ML 500 ML IV ONE (18:30)
[2018-02-20 19:28] VITALS: BP 109/55
[2018-02-20] MEDS ORDERED: CRANBERRY425 MG PO (20:42)
[2018-02-20] MEDS ORDERED: Ertapenem 1 GM in NS 55 ML IVPB SCH ×2 (21:00→22:00)
[2018-02-20] MEDS ORDERED: Fleet's Enema 133ml RECTAL PRN (21:15)
[2018-02-20] MEDS ORDERED: Sennosides 8.6mg GT PRN (21:15)
[2018-02-20] MEDS: D5NS 1,000 ML IV SCH (21:22)
[2018-02-20] MEDS ORDERED: Rx Monitoring Vancomycin MISC PRN (21:30)
[2018-02-20] MEDS ORDERED: Vancomycin 1250mg/D5W 250ml IVPB ONE (22:00)
[2018-02-20] MEDS: Albuterol/Ipratropium 3ml neb HHN SCH (22:56)
[2018-02-21] MEDS ORDERED: Albuterol/Ipratropium 3ml neb HHN SCH (01:00)
[2018-02-21] MEDS: Albuterol/Ipratropium 3ml neb HHN SCH ×6 (03:02→23:34)
[2018-02-21 04:00] VITALS: BP 115/60
[2018-02-21 08:00] VITALS: BP 151/60
--- NOTE | 2018-02-21 09:15 | Pulmonology Progress Note ---
Assessment/Plan Assessment/Plan respiratory insufficiency respiratory alkalosis hypoxemia abnormal CXR chronic interstitial change possible pneumonitis possible aspiration pneumonia GT PLAN empiric antibiotics respiratory care oxygen aspiration precautions resume snf meds head of bed elevated monitor closely for deterioration ABG noted impression, plan, and exam edited and reviewed in detail care discussed with RN Subjective ROS Limited/Unobtainable: Yes Allergies: Coded Allergies: No Known Allergies (Unverified , 01/27/17) Subjective noted to have congestion Objective Last 24 Hour Vital Signs Date Time Temp Pulse Resp B/P (MAP) Pulse Ox O2 Delivery O2 Flow Rate FiO2 02/21/18 07:25 101 22 100 Nasal Cannula 2.0 28 02/21/18 07:12 99 Nasal Cannula 2.0 28 02/21/18 07:12 106 22 99 Nasal Cannula 2.0 28 02/21/18 07:11 Nasal Cannula 2.0 28 02/21/18 04:00 Nasal Cannula 2.0 02/21/18 04:00 100 02/21/18 04:00 99.8 71 20 115/60 (78) 100 99.8 02/21/18 03:10 89 20 100 Nasal Cannula 2.0 28 02/21/18 03:02 81 20 98 Nasal Cannula 2.0 28 02/21/18 00:00 88 02/21/18 00:00 Nasal Cannula 2.0 02/20/18 23:47 Nasal Cannula 2.0 02/20/18 23:00 Nasal Cannula 2.0 28 02/20/18 22:59 98 Nasal Cannula 2.0 02/20/18 22:58 88 18 Nasal Cannula 2.0 02/20/18 22:57 92 20 100 Nasal Cannula 2.0 02/20/18 22:56 88 20 99 Nasal Cannula 2.0 28 02/20/18 20:00 85 02/20/18 20:00 Nasal Cannula 2.0 02/20/18 19:54 98.9 94 25 109/55 99 Nasal Cannula 2.0 02/20/18 19:28 98.9 94 27 109/55 99 Nasal Cannula 2.0 98.9 02/20/18 17:45 100.3 02/20/18 17:30 92 27 112/61 100 Nasal Cannula 2.0 02/20/18 16:20 100.3 102 29 104/57 97 Room Air 100.3 02/20/18 16:08 98.3 113 20 123/65 97 Room Air 98.2 Intake and Output 02/20/18 02/21/18 19:00 07:00 Intake Total 1072.0 ml Output Total 2800 ml Balance -1728.0 ml Intake IV Total 1072.0 ml Output Urine Total 2800 ml # Voids 1 Objective WDWN NAD reduced LOC reduced breath sounds bilaterally with some rhonchi [id number] without MRG NABS nontender no HSM; GT no CC; mild edema; reduced ROM weak and nonverbal Microbiology Date/Time Source Procedure Growth Status 02/20/18 17:47 Urine,Clean Catch Urine Culture - Preliminary NO GROWTH Resulted Laboratory Tests 02/20/18 16:42: White Blood Count 7.9, Red Blood Count 3.94L, Hemoglobin 9.8L, Hematocrit 29.5L , Mean Corpuscular Volume 75L, Mean Corpuscular Hemoglobin 24.9L, Mean Corpuscular Hemoglobin Concent 33.2, Red Cell Distribution Width 14.8, Platelet Count 193, Mean Platelet Volume 5.2L, Neutrophils (%) (Auto) 88.9H, Lymphocytes (%) (Auto) 3.3L, Monocytes (%) (Auto) 7.4, Eosinophils (%) (Auto) 0.0, Basophils (%) (Auto) 0.4, Sodium Level 125L, Potassium Level 3.7, Chloride Level 92L, Carbon Dioxide Level 25, Anion Gap 8, Blood Urea Nitrogen 14, Creatinine 0.9, Estimat Glomerular Filtration Rate , Glucose Level 125H, Lactic Acid Level 1.60, Calcium Level 9.4, Total Bilirubin 0.6, Aspartate Amino Transf (AST/SGOT) 62H, Alanine Aminotransferase (ALT/SGPT) 38, Alkaline Phosphatase 275H, Total Creatine Kinase 47, Creatine Kinase MB < 0.5, Creatine Kinase MB Relative Index 1.0, Troponin I 0.000, Pro-B-Type Natriuretic Peptide 189H, Total Protein 6.7, Albumin 2.2L, Globulin 4.5, Albumin/Globulin Ratio 0.5L, Lipase 340 02/20/18 17:03: Arterial Blood pH 7.530H, Arterial Blood Partial Pressure CO2 29.2L, Arterial Blood Partial Pressure O2 74.4L, Arterial Blood HCO3 23.9, Arterial Blood Oxygen Saturation 95.5, Arterial Blood Base Excess 1.6, Derek Test Positive 02/20/18 17:47: Urine Color Yellow, Urine Appearance Slightly cloudy, Urine pH 6, Urine Specific [place] 1.005, Urine Protein Negative, Urine Glucose (UA) Negative, Urine Ketones Negative, Urine Occult Blood 2+H, Urine Nitrite Negative, Urine Bilirubin Negative, Urine Urobilinogen 1H, Urine Leukocyte Esterase 3+H, Urine RBC 10-15H, Urine WBC 15-20H, Urine Squamous Epithelial Cells None, Urine Amorphous Sediment ModerateH, Urine Bacteria Few, Urine Yeast FewH Current Medications Medications (Trade) Dose Ordered Sig/Iram Route PRN Reason Start Time Stop Time Status Last Admin Dose Admin Acetaminophen (Tylenol) 650 mg Q4H PRN ORAL Fever/Headache/Mild Pain 02/20/18 21:15 03/22/18 21:14 Albuterol/ Ipratropium (Albuterol/ Ipratropium) 3 ml Q4HRT HHN 02/20/18 23:00 02/25/18 22:59 02/21/18 07:12 Amlodipine Besylate (Norvasc) 10 mg DAILY ORAL 02/21/18 09:00 03/23/18 08:59 Aspirin (ASA) 81 mg DAILY ORAL 02/21/18 09:00 03/23/18 08:59 Atorvastatin Calcium (Lipitor) 40 mg BEDTIME ORAL 02/21/18 21:00 03/23/18 20:59 Bisacodyl (Dulcolax) 10 mg DAILY PRN RECTAL CONSTIPATION 02/20/18 21:15 03/22/18 21:14 Dextrose/Sodium Chloride 1,000 ml @ 85 mls/hr [id number] IV 02/20/18 21:30 03/22/18 21:29 02/20/18 21:22 Docusate Sodium (Colace) 100 mg DAILY ORAL 02/21/18 09:00 03/23/18 08:59 Doxazosin Mesylate (Cardura) 1 mg DAILY ORAL 02/21/18 09:00 03/23/18 08:59 Ertapenem 1 gm/ Sodium Chloride 55 ml @ 110 mls/hr Q24H IVPB 02/20/18 22:00 02/21/18 21:59 02/21/18 00:53 Famotidine (Pepcid) 20 mg DAILY ORAL 02/21/18 09:00 03/23/18 08:59 Magnesium Hydroxide (Mom) 30 ml DAILY ORAL 02/21/18 09:00 03/23/18 08:59 Midodrine (Pro-Amatine) 2.5 mg THREE TIMES A DAY ORAL 02/21/18 09:00 03/23/18 08:59 Multivitamins Therapeutic (Therapeutic Multivitamin) 1 ea DAILY ORAL 02/21/18 09:00 03/23/18 08:59 Sennosides (Senokot) 2 tab BID PRN GT Constipation 02/20/18 21:15 03/22/18 21:14 Sodium Phosphate (Fleet's Sodium Phosl Enema) 133 ml Q2D PRN RECTAL CONSTIPATION 02/20/18 21:15 03/22/18 21:14 Tamsulosin HCl (Flomax) 0.4 mg BEDTIME ORAL 02/21/18 21:00 03/23/18 20:59 Vancomycin HCl (Rx Monitoring Vancomycin) 1 ea DAILY PRN MISC PNEUMONIA 02/20/18 21:30 03/22/18 21:29 Vancomycin HCl 1 gm/Dextrose 275 ml @ 183.708 mls/hr Q12H IVPB 02/21/18 10:00 02/26/18 09:59 Nakul Cisse MD Feb 21, 2018 09:15
--- NOTE | 2018-02-21 09:22 | Diagnostic Imaging Report ---
Indications: Altered mental status Technique: Spiral acquisitions obtained through the brain. Angled axial and coronal 5 x 5 mm slices were reconstructed. Total dose length product 2769.37 mGycm. CTDI vol(s) 70.38,70.38,70.38,70.38,70.38 mGy. Dose reduction achieved using automated exposure control Comparison: None. Findings: There is an area of encephalomalacia involving the posterior left temporal and parietal lobes and extending into the left occipital lobe. There is generalized enlargement of the ventricles and extra-axial CSF spaces. There is extensive periventricular deep white matter low-attenuation. Old lacunar infarcts are seen in the bilateral thalami, the bilateral basal ganglia, and questionably in the left side of the midbrain. No acute intracranial hemorrhage or edema. No mass effect nor midline shift. There is minimal ethmoid sinus mucosal disease. The orbits are unremarkable. The calvarium is intact. The mastoids are clear. Impression: Chronic and age-related changes Multiple old infarcts, as described Sinus disease Negative for acute intracranial bleed or mass effect This agrees with the preliminary interpretation provided overnight by [facility] teleradiology service. The CT scanner at [facility] is accredited by the [employer] and the scans are performed using protocols designed to limit radiation exposure to as low as reasonably achievable to attain images of sufficient resolution adequate for diagnostic evaluation.
[2018-02-21] MEDS: Aspirin Baby 81mg ORAL SCH (09:24)
[2018-02-21] MEDS: Docusate 100mg cap ORAL SCH (09:24)
[2018-02-21] MEDS: Multivitamin w/Minerals tab ORAL SCH (09:24)
[2018-02-21] MEDS: Doxazosin 1mg Tab ORAL SCH (09:25)
[2018-02-21] MEDS: Milk of Magnesia 30ml Ud ORAL SCH (09:25)
[2018-02-21] MEDS: D5NS 1,000 ML IV SCH ×2 (09:29→20:53)
[2018-02-21 12:00] VITALS: BP 138/65
[2018-02-21] MEDS: Piperacillin/Tazobactam 3.375 GM in NS 110 ML IVPB SCH ×2 (12:19→23:48)
[2018-02-21] MEDS: Vancomycin 1gm in D5W 275ml IVPB SCH ×2 (12:58→23:48)
--- NOTE | 2018-02-21 14:29 | Consultation ---
DATE OF CONSULTATION: 02/21/2018 INFECTIOUS DISEASES CONSULTATION CONSULTING PHYSICIAN: Sergio Urban M.D. REFERRING PHYSICIAN: Jarrod Vásquez M.D. REASON FOR CONSULTATION: Pneumonia. HISTORY OF PRESENTING ILLNESS: This is a 72-year-old gentleman with history of benign prostatic hypertrophy, syphilis, encephalopathy, CVA, dementia, and seizures, who comes in with respiratory distress. He was thought to have a pneumonia and an Infectious Diseases consultation has been obtained for antibiotics. PAST MEDICAL HISTORY: 1. History of hyperlipidemia. 2. Benign prostatic hypertrophy. 3. Hypertension. 4. GERD. 5. Dysphagia. 6. Status post G-tube placement. 7. Syphilis. 8. Encephalopathy. 9. CVA. 10. TIA. 11. Dementia. 12. History of seizures. SOCIAL HISTORY: Unknown. FAMILY HISTORY: Unknown. REVIEW OF SYSTEMS: Unable to obtain currently. MEDICATIONS: As an inpatient, the patient is on Lipitor, Flomax, IV vancomycin, amlodipine, aspirin, docusate, Cardura, Pepcid, milk of magnesia, midodrine, multivitamin, ipratropium albuterol, ertapenem, Tylenol, Dulcolax, and Senokot. ALLERGIES: No known drug allergies. PHYSICAL EXAMINATION: VITAL SIGNS: Temperature of 99.8, T-max of 100.3, pulse of 108, respiratory rate 22, blood pressure 151/60, and O2 saturation of 100%. HEENT: Pupils equally reactive to light and accommodation. Mouth appears clean without thrush. NECK: Supple. No adenopathy. No JVD. CARDIOVASCULAR: Regular rate and rhythm. No murmurs. LUNGS: Clear to auscultation bilaterally. No crackles. No wheezes. ABDOMEN: Soft and nontender. No organomegaly. G-tube site appears clean. EXTREMITIES: No cyanosis, no clubbing, no edema. LABORATORY AND DIAGNOSTIC DATA: White count 7.9, hemoglobin 9.8, hematocrit 29.5, MCV 75, and platelet count of 193. Sodium 125, potassium 3.7, chloride 92, bicarbonate 25, BUN 14, creatinine 0.9, glucose 125, and calcium 9.4. Total bilirubin 0.6. AST 62, ALT 38, and alkaline phosphatase 275. CK of 47, CK-MB less than 0.5. Troponin 0. Beta natriuretic peptide 189. Total protein 6.7. Albumin 2.2. Lipase of 340. UA showing 15 to 20 white cells. Urine cultures are negative. Chest x-ray showing diffuse micronodular interstitial disease with associated patchy airspace opacity. CT head showing chronic age-related changes, multiple old infarcts and sinus disease noted. Reviewing cultures from prior admission 02/12/2018, urine culture grew Kaylah albicans. ASSESSMENT: 1. This is a 72-year-old gentleman with history of dementia, seizures, hypertension, who comes in with a possible pneumonia. 2. We would also like to rule out urinary tract infection as a possibility. 3. Seizures. 4. Dementia. PLAN: 1. Continue IV vancomycin. 2. Discontinue ertapenem and we will start the patient on Zosyn. 3. We will order sputum cultures. 4. We will follow up cultures and adjust antibiotics accordingly. I would like to thank, Dr. Vásquez, for this consultation. Sergio Urban M.D. DR: LIZETT JOB#: [id number] CC: Jarrod Vásquez M.D.
[2018-02-21 16:00] VITALS: BP 153/82
--- NOTE | 2018-02-21 16:54 | Cardiology Report ---
APPROVED REPORT EKG Measurement Heart [id number] Sinus tachycardia Septal infarct, age undetermined Abnormal ECG
[2018-02-21 20:51] VITALS: BP 113/57
[2018-02-21] MEDS: Atorvastatin 20mg tab ORAL SCH (20:52)
[2018-02-21] MEDS: Tamsulosin 0.4mg cap ORAL SCH (20:53)
[2018-02-22] VITALS: BP 105/55
--- NOTE | 2018-02-22 01:45 | History and Physical Report ---
DATE OF ADMISSION: 02/20/2018 CHIEF COMPLAINT: Sepsis, encephalopathy, and pneumonia. HISTORY OF PRESENT ILLNESS: The patient is a 72-year-old male, well known to me. He has a history of encephalopathy, dysphagia, status post G-tube, anemia, and hypertension. He has a history of chronic kidney disease. He was recently hospitalized with pneumonia. He had improved. [facility] was [facility]. He did well until the day of admission when developed fevers and altered mental status. He was transferred back to the emergency room where x-ray showed diffuse pulmonary infiltrates similar to his prior x-ray. He was febrile and confused. He was pancultured. He has been started on broad-spectrum IV antibiotics. He is now admitted for further inpatient evaluation and care. PAST MEDICAL HISTORY: As above. PAST SURGICAL HISTORY: Includes a G-tube. CURRENT MEDICATIONS: Reconciled and reviewed. ALLERGIES: None. FAMILY HISTORY: None. SOCIAL HISTORY: There is no known history of tobacco, ethanol, or drugs. REVIEW OF SYSTEMS: Unobtainable as the patient is confused. PHYSICAL EXAMINATION: VITAL SIGNS: Temperature 98, pulse 103, respirations 20, and blood pressure 138/65. GENERAL: The patient is a chronically ill-appearing thin male, in no apparent distress. He is confused and altered. NECK: Supple. Oropharynx clear. Mucous membrane is moist. HEART: Regular rate and rhythm. LUNGS: Significant for scattered rhonchi. ABDOMEN: Soft, nontender, and nondistended. EXTREMITIES: Without clubbing, cyanosis, or edema. DIAGNOSTIC DATA: Chest x-ray showed bilateral infiltrates. CT scan of the head showed chronic age-related changes and multiple old infarcts. White count was 8000, hemoglobin 10, hematocrit 29, and platelets of 193,000. Sodium 125, potassium 3.7, chloride 92, bicarb 25, BUN 14, and creatinine was 0.9. Urine showed 15 to 20 wbc's. ASSESSMENT: This is an elderly male admitted with complaints of sepsis. 1. Sepsis. 2. Urinary tract infection. 3. Pneumonia. 4. Respiratory failure. 5. History of dysphagia, status post gastrostomy tube. PLAN: 1. IV antibiotics. 2. Follow up cultures. 3. Respiratory treatments. 4. Supplemental oxygen. 5. Suctioning as needed. 6. Continue G-tube feeds. 7. The patient's status is currently guarded. Jarrod Vásquez M.D. DR: CLARA JOB#: [id number] CC:
[2018-02-22] MEDS: Albuterol/Ipratropium 3ml neb HHN SCH ×6 (03:16→23:00)
[2018-02-22 03:44] VITALS: BP 120/57
[2018-02-22 06:05] LABS: ALANINE AMINOTRANSFERASE 30 U/L (12-78); ALBUMIN/GLOBULIN RATIO 0.5 (1.0-2.7); ALKALINE PHOSPHATASE 229 U/L (46-116); ANION GAP 6 mmol/L (5-15); ASPARTATE AMINO TRANSFERASE 56 U/L (15-37); BILIRUBIN,TOTAL 0.6 MG/DL (0.2-1.0); BLOOD UREA NITROGEN 9 mg/dL (7-18); CALCIUM 8.5 MG/DL (8.5-10.1); CARBON DIOXIDE 27 MMOL/L (21-32); CHLORIDE 100 MMOL/L (98-107); CREATININE 0.7 MG/DL (0.55-1.30); POTASSIUM 2.8 MMOL/L (3.5-5.1); SODIUM 133 MMOL/L (136-145)
[2018-02-22] MEDS: Piperacillin/Tazobactam 3.375 GM in NS 110 ML IVPB SCH ×4 (06:08→20:30)
[2018-02-22 08:00] VITALS: BP 106/55
--- NOTE | 2018-02-22 08:01 | General Progress Note ---
Assessment/Plan Problem List: (1) Encephalopathy ICD Codes: G93.40 - Encephalopathy, unspecified SNOMED: 77122108 (2) Sepsis ICD Codes: A41.9 - Sepsis, unspecified organism SNOMED: 25529312 (3) UTI (urinary tract infection), bacterial ICD Codes: N39.0 - Urinary tract infection, site not specified; A49.9 - Bacterial infection, unspecified SNOMED: 255737446 (4) Dementia ICD Codes: F03.90 - Unspecified dementia without behavioral disturbance SNOMED: 53625425 (5) Aspiration pneumonia ICD Codes: J69.0 - Pneumonitis due to inhalation of food and vomit SNOMED: 315995457 (6) BPH (benign prostatic hyperplasia) ICD Codes: N40.0 - Benign prostatic hyperplasia without lower urinary tract symptoms SNOMED: 449446864, 367865519 (7) Dyspnea ICD Codes: R06.00 - Dyspnea, unspecified SNOMED: 622547050 (8) Hyponatremia ICD Codes: E87.1 - Hypo-osmolality and hyponatremia SNOMED: 36267381 Status: stable Assessment/Plan cont ivf gt feeds abx per id follow up cultures monitor cxr replace k resp rx/o2 Subjective ROS Limited/Unobtainable: Yes Constitutional: Reports: malaise, weakness HEENT: Reports: no symptoms Cardiovascular: Reports: no symptoms Respiratory: Reports: cough, shortness of breath, sputum Gastrointestinal/Abdominal: Reports: no symptoms Genitourinary: Reports: no symptoms Neurologic/Psychiatric: Reports: pre-existing deficit Endocrine: Reports: no symptoms Hematologic/Lymphatic: Reports: no symptoms Allergies: Coded Allergies: No Known Allergies (Unverified , 01/27/17) All Systems: reviewed and negative except above Subjective no events, better today. more alert. answers simple questions and follows simple commands. Objective Last 24 Hour Vital Signs Date Time Temp Pulse Resp B/P (MAP) Pulse Ox O2 Delivery O2 Flow Rate FiO2 02/22/18 04:00 90 02/22/18 04:00 Room Air 02/22/18 03:44 97.5 83 16 120/57 (78) 97 97.5 02/22/18 03:23 74 20 100 Nasal Cannula 2.0 28 02/22/18 03:17 77 20 98 Room Air 02/22/18 00:00 Room Air 02/22/18 00:00 84 7/21/18 00:00 97.7 92 16 105/55 (72) 97 97.7 02/21/18 23:45 99 20 100 Nasal Cannula 2.0 28 02/21/18 23:36 88 20 99 Room Air 02/21/18 21:23 Room Air 02/21/18 21:22 Room Air 02/21/18 21:22 Room Air 02/21/18 21:21 96 Room Air 02/21/18 20:51 97.9 85 16 113/57 (75) 96 97.9 02/21/18 20:00 86 02/21/18 20:00 Room Air 02/21/18 16:18 Room Air 02/21/18 16:17 Room Air 02/21/18 16:00 96.4 87 20 153/82 (105) 100 96.4 02/21/18 16:00 87 02/21/18 16:00 Nasal Cannula 2.0 02/21/18 12:00 Nasal Cannula 2.0 02/21/18 12:00 97.9 103 20 138/65 (89) 100 97.9 02/21/18 12:00 99 02/21/18 11:39 102 20 100 Nasal Cannula 2.0 28 02/21/18 11:21 100 20 100 Room Air 02/21/18 09:24 108 151/60 02/21/18 08:00 103 02/21/18 08:00 98.9 108 20 151/60 (90) 100 98.9 02/21/18 08:00 Nasal Cannula 2.0 Intake and Output 02/21/18 02/22/18 19:00 07:00 Intake Total 1327.016 ml 1320.000 ml Output Total 750 ml 650 ml Balance 577.016 ml 670.000 ml Intake IV Total 1327.016 ml 1320.000 ml Output Urine Total 750 ml 650 ml # Voids 1 Laboratory Tests 02/22/18 04:12: Sodium Level 133L, Potassium Level 2.8L, Chloride Level 100, Carbon Dioxide Level 27, Anion Gap 6, Blood Urea Nitrogen 9, Creatinine 0.7, Estimat Glomerular Filtration Rate , Glucose Level 110H, Calcium Level 8.5, Total Bilirubin 0.6, Aspartate Amino Transf (AST/SGOT) 56H, Alanine Aminotransferase ( ALT/SGPT) 30, Alkaline Phosphatase 229H, Total Protein 6.3L, Albumin 2.0L, Globulin 4.3, Albumin/Globulin Ratio 0.5L Height (Feet): 5 Height (Inches): 10.00 Weight (Pounds): 160 General Appearance: WD/WN, lethargic, confused Neck: supple Cardiovascular: regular rhythm Respiratory/Chest: lungs clear, normal breath sounds Abdomen: normal bowel sounds, non tender, soft, no organomegaly Edema: no edema noted Arm (L), no edema noted Arm (R), no edema noted Leg (L), no edema noted Leg (R), no edema noted Pedal (L), no edema noted Pedal (R), no edema noted Generalized Neurologic: disoriented Jarrod Vásquez MD Feb 22, 2018 08:01
[2018-02-22] MEDS: Aspirin Baby 81mg ORAL SCH (08:47)
[2018-02-22] MEDS: Milk of Magnesia 30ml Ud ORAL SCH (08:47)
[2018-02-22] MEDS: D5NS 1,000 ML IV SCH ×2 (08:47→20:59)
[2018-02-22] MEDS: Multivitamin w/Minerals tab ORAL SCH (08:47)
[2018-02-22] MEDS: Doxazosin 1mg Tab ORAL SCH (08:47)
[2018-02-22] MEDS: Docusate 100mg cap ORAL SCH (08:47)
[2018-02-22] MEDS: Heparin 5000 units/ml inj SUBQ SCH ×2 (08:48→20:56)
--- NOTE | 2018-02-22 09:02 | Pulmonology Progress Note ---
Assessment/Plan Assessment/Plan respiratory insufficiency respiratory alkalosis hypoxemia abnormal CXR chronic interstitial change possible pneumonitis possible aspiration pneumonia GT PLAN replace K monitor HH empiric antibiotics- cultures noted respiratory care oxygen aspiration precautions snf meds head of bed elevated to avoid further aspiration monitor closely for deterioration ABG noted and monitor impression, plan, and exam edited and reviewed in detail care discussed with RN Subjective ROS Limited/Unobtainable: Yes Allergies: Coded Allergies: No Known Allergies (Unverified , 01/27/17) Subjective noted to have congestion on FM oxygen mask reduced LOC Objective Last 24 Hour Vital Signs Date Time Temp Pulse Resp B/P (MAP) Pulse Ox O2 Delivery O2 Flow Rate FiO2 02/22/18 08:51 72 20 98 Room Air 21 02/22/18 08:45 Room Air 21 02/22/18 08:45 96 Room Air 21 02/22/18 08:44 72 20 96 Room Air 02/22/18 08:00 97.2 80 18 106/55 (72) 98 97.2 02/22/18 04:00 90 02/22/18 04:00 Room Air 02/22/18 03:44 97.5 83 16 120/57 (78) 97 97.5 02/22/18 03:23 74 20 100 Nasal Cannula 2.0 28 02/22/18 03:17 77 20 98 Room Air 02/22/18 00:00 Room Air 02/22/18 00:00 84 02/22/18 00:00 97.7 92 16 105/55 (72) 97 97.7 02/21/18 23:45 99 20 100 Nasal Cannula 2.0 28 02/21/18 23:36 88 20 99 Room Air 02/21/18 21:23 Room Air 02/21/18 21:22 Room Air 02/21/18 21:22 Room Air 02/21/18 21:21 96 Room Air 02/21/18 20:51 97.9 85 16 113/57 (75) 96 97.9 02/21/18 20:00 86 02/21/18 20:00 Room Air 02/21/18 16:18 Room Air 02/21/18 16:17 Room Air 02/21/18 16:00 96.4 87 20 153/82 (105) 100 96.4 02/21/18 16:00 87 02/21/18 16:00 Nasal Cannula 2.0 02/21/18 12:00 Nasal Cannula 2.0 02/21/18 12:00 97.9 103 20 138/65 (89) 100 97.9 02/21/18 12:00 99 02/21/18 11:39 102 20 100 Nasal Cannula 2.0 28 02/21/18 11:21 100 20 100 Room Air 02/21/18 09:24 108 151/60 Intake and Output 02/21/18 02/22/18 19:00 07:00 Intake Total 1327.016 ml 1320.000 ml Output Total 750 ml 650 ml Balance 577.016 ml 670.000 ml Intake IV Total 1327.016 ml 1320.000 ml Output Urine Total 750 ml 650 ml # Voids 1 Objective WDWN NAD reduced LOC reduced breath sounds bilaterally with persistent rhonchi [id number] without MRG NABS nontender no HSM; GT no CC; mild edema; reduced ROM weak and nonverbal Microbiology Date/Time Source Procedure Growth Status 02/21/18 16:40 Sputum Gram Stain - Final Resulted 02/21/18 16:40 Sputum Sputum Culture Pending Resulted 02/20/18 17:47 Urine,Clean Catch Urine Culture - Preliminary Yeast Species Resulted Laboratory Tests 02/22/18 04:12: Sodium Level 133L, Potassium Level 2.8L, Chloride Level 100, Carbon Dioxide Level 27, Anion Gap 6, Blood Urea Nitrogen 9, Creatinine 0.7, Estimat Glomerular Filtration Rate , Glucose Level 110H, Calcium Level 8.5, Total Bilirubin 0.6, Aspartate Amino Transf (AST/SGOT) 56H, Alanine Aminotransferase ( ALT/SGPT) 30, Alkaline Phosphatase 229H, Total Protein 6.3L, Albumin 2.0L, Globulin 4.3, Albumin/Globulin Ratio 0.5L Current Medications Medications (Trade) Dose Ordered Sig/Iram Route PRN Reason Start Time Stop Time Status Last Admin Dose Admin Acetaminophen (Tylenol) 650 mg Q4H PRN ORAL Fever/Headache/Mild Pain 02/20/18 21:15 03/22/18 21:14 Acetylcysteine (Mucomyst) 100 mg TIDRT [facility]N 02/21/18 13:00 03/23/18 12:59 02/22/18 08:44 Albuterol/ Ipratropium (Albuterol/ Ipratropium) 3 ml Q4HRT N 02/20/18 23:00 02/25/18 22:59 02/22/18 08:44 Amlodipine Besylate (Norvasc) 10 mg DAILY ORAL 02/21/18 09:00 03/23/18 08:59 02/21/18 09:24 Aspirin (ASA) 81 mg DAILY ORAL 02/21/18 09:00 03/23/18 08:59 02/22/18 08:47 Atorvastatin Calcium (Lipitor) 40 mg BEDTIME ORAL 02/21/18 21:00 03/23/18 20:59 02/21/18 20:52 Bisacodyl (Dulcolax) 10 mg DAILY PRN RECTAL CONSTIPATION 02/20/18 21:15 03/22/18 21:14 Dextrose/Sodium Chloride 1,000 ml @ 85 mls/hr [id number] IV 02/20/18 21:30 03/22/18 21:29 02/22/18 08:47 Docusate Sodium (Colace) 100 mg DAILY ORAL 02/21/18 09:00 03/23/18 08:59 02/22/18 08:47 Doxazosin Mesylate (Cardura) 1 mg DAILY ORAL 02/21/18 09:00 03/23/18 08:59 02/22/18 08:47 Famotidine (Pepcid) 20 mg DAILY ORAL 02/21/18 09:00 03/23/18 08:59 02/22/18 08:47 Heparin Sodium (Porcine) (Heparin 5000 units/ml) 5,000 units EVERY 12 HOURS SUBQ 02/22/18 09:00 03/24/18 08:59 02/22/18 08:48 Magnesium Hydroxide (Mom) 30 ml DAILY ORAL 02/21/18 09:00 03/23/18 08:59 02/22/18 08:47 Midodrine (Pro-Amatine) 2.5 mg THREE TIMES A DAY ORAL 02/21/18 09:00 03/23/18 08:59 02/22/18 08:47 Multivitamins Therapeutic (Therapeutic Multivitamin) 1 ea DAILY ORAL 02/21/18 09:00 03/23/18 08:59 02/22/18 08:47 Piperacillin Sod/ Tazobactam Sod 3.375 gm/Sodium Chloride 110 ml @ 27.5 mls/hr EVERY 8 HOURS IVPB 02/21/18 12:00 02/26/18 11:59 02/22/18 06:08 Potassium Chloride (K-Dur) 60 meq ONCE ONCE GT 02/22/18 09:00 02/22/18 09:01 02/22/18 08:47 Sennosides (Senokot) 2 tab BID PRN GT Constipation 02/20/18 21:15 03/22/18 21:14 Sodium Phosphate (Fleet's Sodium Phosl Enema) 133 ml Q2D PRN RECTAL CONSTIPATION 02/20/18 21:15 03/22/18 21:14 Tamsulosin HCl (Flomax) 0.4 mg BEDTIME ORAL 02/21/18 21:00 03/23/18 20:59 02/21/18 20:53 Vancomycin HCl (Rx Monitoring Vancomycin) 1 ea DAILY PRN MISC PNEUMONIA 02/20/18 21:30 03/22/18 21:29 Vancomycin HCl 1 gm/Dextrose 275 ml @ 183.708 mls/hr Q12H IVPB 02/21/18 10:00 02/26/18 09:59 02/21/18 23:48 Nakul Cisse MD Feb 22, 2018 09:02
[2018-02-22] MEDS: Vancomycin 1gm in D5W 275ml IVPB SCH ×2 (10:36→22:17)
[2018-02-22 12:00] VITALS: BP 138/73
[2018-02-22 16:00] VITALS: BP 126/64
[2018-02-22] MEDS ORDERED: Sterile Water Irrig 1000ml IRRIG ONE ×2 (17:48→17:49)
[2018-02-22] MEDS ORDERED: Tubing IV Secondary IV ONE (17:48)
[2018-02-22] MEDS ORDERED: D5NS 1000ml IV ONE ×2 (17:48→17:49)
[2018-02-22] MEDS ORDERED: D5W 275ml ONE (17:48)
[2018-02-22] MEDS ORDERED: NS 500ML ONE (17:49)
[2018-02-22 20:00] VITALS: BP 128/65
[2018-02-22] MEDS: Atorvastatin 20mg tab ORAL SCH (20:30)
[2018-02-22] MEDS: Tamsulosin 0.4mg cap ORAL SCH (20:30)
[2018-02-23] VITALS: BP_SYST 128; BP_SYST 135; BP_DIAS 65; BP_DIAS 75
[2018-02-23] MEDS: Albuterol/Ipratropium 3ml neb HHN SCH ×6 (03:00→23:11)
[2018-02-23 04:00] VITALS: BP 145/73
[2018-02-23 05:04] LABS: BASOPHILS % (AUTO) 0.9 % (0.0-2.0); EOSINOPHILS % (AUTO) 0.2 % (0.0-3.0); HEMATOCRIT 29.7 % (42.0-52.0); HEMOGLOBIN 9.5 G/DL (14.2-18.0); LYMPHOCYTES % (AUTO) 8.4 % (20.0-45.0); MEAN CORPUSCULAR VOLUME 77 FL (80-99); MONOCYTES % (AUTO) 14.7 % (1.0-10.0); NEUTROPHILS % (AUTO) 75.9 % (45.0-75.0); PLATELET COUNT 201 K/UL (150-450); RED BLOOD COUNT 3.86 M/UL (4.70-6.10); RED CELL DISTRIBUTION WIDTH 14.7 % (11.6-14.8); WHITE BLOOD COUNT 3.6 K/UL (4.8-10.8)
[2018-02-23 05:08] LABS: ALANINE AMINOTRANSFERASE 42 U/L (12-78); ALBUMIN 2.2 G/DL (3.4-5.0); ALBUMIN/GLOBULIN RATIO 0.5 (1.0-2.7); ALKALINE PHOSPHATASE 291 U/L (46-116); ANION GAP 10 mmol/L (5-15); ASPARTATE AMINO TRANSFERASE 78 U/L (15-37); BILIRUBIN,TOTAL 0.6 MG/DL (0.2-1.0); BLOOD UREA NITROGEN 8 mg/dL (7-18); CARBON DIOXIDE 26 MMOL/L (21-32); CHLORIDE 101 MMOL/L (98-107); CREATININE 0.7 MG/DL (0.55-1.30); POTASSIUM 3.5 MMOL/L (3.5-5.1); SODIUM 137 MMOL/L (136-145)
[2018-02-23] MEDS: Piperacillin/Tazobactam 3.375 GM in NS 110 ML IVPB SCH ×3 (06:08→21:01)
[2018-02-23 08:00] VITALS: BP 141/55
[2018-02-23] MEDS: D5NS 1,000 ML IV SCH (08:50)
[2018-02-23] MEDS: Milk of Magnesia 30ml Ud ORAL SCH (09:33)
[2018-02-23] MEDS: Doxazosin 1mg Tab ORAL SCH (09:33)
[2018-02-23] MEDS: Multivitamin w/Minerals tab ORAL SCH (09:33)
[2018-02-23] MEDS: Aspirin Baby 81mg ORAL SCH (09:33)
[2018-02-23] MEDS: Docusate 100mg cap ORAL SCH (09:34)
--- NOTE | 2018-02-23 09:37 | Pulmonology Progress Note ---
Assessment/Plan Assessment/Plan respiratory insufficiency respiratory alkalosis hypoxemia abnormal CXR chronic interstitial change possible pneumonitis possible aspiration pneumonia GT PLAN monitor labs empiric antibiotics- all reviewed respiratory care oxygen aspiration precautions snf meds head of bed elevated to avoid further aspiration monitor closely for deterioration ABG PRN impression, plan, and exam edited and reviewed in detail care discussed with RN Subjective ROS Limited/Unobtainable: Yes Allergies: Coded Allergies: No Known Allergies (Unverified , 01/27/17) Subjective some congestion on FM oxygen mask reduced LOC Objective Last 24 Hour Vital Signs Date Time Temp Pulse Resp B/P (MAP) Pulse Ox O2 Delivery O2 Flow Rate FiO2 02/23/18 09:33 92 141/55 02/23/18 08:00 Room Air 02/23/18 08:00 98.6 92 20 141/55 (83) 100 98.6 02/23/18 07:51 Room Air 02/23/18 07:48 96 Room Air 02/23/18 04:00 97.8 95 18 145/73 (97) 98 97.8 02/23/18 04:00 97 02/23/18 04:00 Room Air 02/23/18 03:12 Room Air 21 02/23/18 03:12 Room Air 02/23/18 00:00 100 02/23/18 00:00 97.8 98 18 135/75 (95) 98 97.8 02/23/18 00:00 97.4 92 17 128/65 (86) 98 97.4 02/23/18 00:00 Room Air 02/22/18 23:19 Room Air 02/22/18 23:19 Room Air 02/22/18 20:00 102 02/22/18 20:00 Room Air 02/22/18 20:00 97.3 89 17 128/65 (86) 98 97.3 02/22/18 19:29 78 18 98 Room Air 02/22/18 19:21 67 22 97 Room Air 02/22/18 19:02 Room Air 02/22/18 19:02 97 Room Air 21 02/22/18 16:00 97.2 87 16 126/64 (84) 100 97.2 02/22/18 16:00 Room Air 02/22/18 16:00 82 02/22/18 15:04 Room Air 21 02/22/18 15:03 68 20 100 Room Air 02/22/18 12:18 74 20 98 Room Air 21 02/22/18 12:11 75 20 98 Room Air 02/22/18 12:00 Room Air 02/22/18 12:00 96.8 89 20 138/73 (94) 100 96.8 02/22/18 11:56 73 Intake and Output 02/22/18 02/23/18 19:00 07:00 Intake Total 1565.9167 ml 1746.55 ml Output Total 600 ml 650 ml Balance 965.9167 ml 1096.55 ml Intake Free Water 100 ml IV Total 1290.9167 ml 1346.55 ml Tube Feeding 165 ml 300 ml Other 110 ml Output Urine Total 600 ml 650 ml # Bowel Movements 2 Objective WDWN NAD reduced LOC reduced breath sounds bilaterally with persistent rhonchi [id number] without MRG NABS nontender no HSM; GT no CC; mild edema; reduced ROM weak and nonverbal Microbiology Date/Time Source Procedure Growth Status 02/20/18 16:42 Blood Blood Culture - Preliminary NO GROWTH AFTER 48 HOURS Resulted 02/20/18 16:42 Blood Blood Culture - Preliminary NO GROWTH AFTER 48 HOURS Resulted 02/21/18 16:40 Sputum Gram Stain - Final Complete 02/21/18 16:40 Sputum Sputum Culture - Final NORMAL UPPER RESPIRATORY BARON PRESENT Complete 02/20/18 17:45 Nasal Nares MRSA Culture - Final NO METHICILLIN RESISTANT STAPH AUREUS... 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 Complete Laboratory Tests 02/23/18 03:10: White Blood Count 3.6L, Red Blood Count 3.86L, Hemoglobin 9.5L, Hematocrit 29.7L , Mean Corpuscular Volume 77L, Mean Corpuscular Hemoglobin 24.5L, Mean Corpuscular Hemoglobin Concent 31.8L, Red Cell Distribution Width 14.7, Platelet Count 201, Mean Platelet Volume 5.6L, Neutrophils (%) (Auto) 75.9H, Lymphocytes (%) (Auto) 8.4L, Monocytes (%) (Auto) 14.7H, Eosinophils (%) (Auto) 0.2, Basophils (%) (Auto) 0.9, Sodium Level 137, Potassium Level 3.5, Chloride Level 101, Carbon Dioxide Level 26, Anion Gap 10, Blood Urea Nitrogen 8, Creatinine 0.7, Estimat Glomerular Filtration Rate , Glucose Level 101, Calcium Level 9.0, Total Bilirubin 0.6, Aspartate Amino Transf (AST/SGOT) 78H, Alanine Aminotransferase (ALT/SGPT) 42, Alkaline Phosphatase 291H, Total Protein 6.7, Albumin 2.2L, Globulin 4.5, Albumin/Globulin Ratio 0.5L Current Medications Medications (Trade) Dose Ordered Sig/Iram Route PRN Reason Start Time Stop Time Status Last Admin Dose Admin Acetaminophen (Tylenol) 650 mg Q4H PRN ORAL Fever/Headache/Mild Pain 02/20/18 21:15 03/22/18 21:14 Acetylcysteine (Mucomyst) 100 mg TIDRT [facility] 02/21/18 13:00 03/23/18 12:59 02/23/18 07:48 Albuterol/ Ipratropium (Albuterol/ Ipratropium) 3 ml Q4HRT [facility] 02/20/18 23:00 02/25/18 22:59 02/23/18 07:47 Amlodipine Besylate (Norvasc) 10 mg DAILY ORAL 02/21/18 09:00 03/23/18 08:59 02/23/18 09:33 Aspirin (ASA) 81 mg DAILY ORAL 02/21/18 09:00 03/23/18 08:59 02/23/18 09:33 Atorvastatin Calcium (Lipitor) 40 mg BEDTIME ORAL 02/21/18 21:00 03/23/18 20:59 02/22/18 20:30 Bisacodyl (Dulcolax) 10 mg DAILY PRN RECTAL CONSTIPATION 02/20/18 21:15 03/22/18 21:14 Dextrose/Sodium Chloride 1,000 ml @ 85 mls/hr [id number] IV 02/20/18 21:30 03/22/18 21:29 02/23/18 08:50 Docusate Sodium (Colace) 100 mg DAILY ORAL 02/21/18 09:00 03/23/18 08:59 02/23/18 09:34 Doxazosin Mesylate (Cardura) 1 mg DAILY ORAL 02/21/18 09:00 03/23/18 08:59 02/23/18 09:33 Famotidine (Pepcid) 20 mg DAILY ORAL 02/21/18 09:00 03/23/18 08:59 02/23/18 09:34 Heparin Sodium (Porcine) (Heparin 5000 units/ml) 5,000 units EVERY 12 HOURS SUBQ 02/22/18 09:00 03/24/18 08:59 02/22/18 20:56 Magnesium Hydroxide (Mom) 30 ml DAILY ORAL 02/21/18 09:00 03/23/18 08:59 02/23/18 09:33 Midodrine (Pro-Amatine) 2.5 mg THREE TIMES A DAY ORAL 02/21/18 09:00 03/23/18 08:59 02/23/18 09:33 Multivitamins Therapeutic (Therapeutic Multivitamin) 1 ea DAILY ORAL 02/21/18 09:00 03/23/18 08:59 02/23/18 09:33 Piperacillin Sod/ Tazobactam Sod 3.375 gm/Sodium Chloride 110 ml @ 27.5 mls/hr EVERY 8 HOURS IVPB 02/21/18 12:00 02/26/18 11:59 02/23/18 06:08 Sennosides (Senokot) 2 tab BID PRN GT Constipation 02/20/18 21:15 03/22/18 21:14 Sodium Phosphate (Fleet's Sodium Phosl Enema) 133 ml Q2D PRN RECTAL CONSTIPATION 02/20/18 21:15 03/22/18 21:14 Tamsulosin HCl (Flomax) 0.4 mg BEDTIME ORAL 02/21/18 21:00 03/23/18 20:59 02/22/18 20:30 Vancomycin HCl (Rx Monitoring Vancomycin) 1 ea DAILY PRN MISC PNEUMONIA 02/20/18 21:30 03/22/18 21:29 Vancomycin HCl 1 gm/Dextrose 275 ml @ 183.708 mls/hr Q12H IVPB 02/21/18 10:00 02/26/18 09:59 02/22/18 22:17 Nakul Cisse MD Feb 23, 2018 09:37
[2018-02-23] MEDS: Heparin 5000 units/ml inj SUBQ SCH ×2 (09:40→21:01)
[2018-02-23] MEDS: Vancomycin 1gm in D5W 275ml IVPB SCH (09:56)
--- NOTE | 2018-02-23 10:48 | General Progress Note ---
Assessment/Plan Problem List: (1) Encephalopathy ICD Codes: G93.40 - Encephalopathy, unspecified SNOMED: 64171849 (2) Sepsis ICD Codes: A41.9 - Sepsis, unspecified organism SNOMED: 20774713 (3) UTI (urinary tract infection), bacterial ICD Codes: N39.0 - Urinary tract infection, site not specified; A49.9 - Bacterial infection, unspecified SNOMED: 721455032 (4) Dementia ICD Codes: F03.90 - Unspecified dementia without behavioral disturbance SNOMED: 39377687 (5) Aspiration pneumonia ICD Codes: J69.0 - Pneumonitis due to inhalation of food and vomit SNOMED: 694039070 (6) BPH (benign prostatic hyperplasia) ICD Codes: N40.0 - Benign prostatic hyperplasia without lower urinary tract symptoms SNOMED: 186700726, 900918243 (7) Dyspnea ICD Codes: R06.00 - Dyspnea, unspecified SNOMED: 195336521 (8) Hyponatremia ICD Codes: E87.1 - Hypo-osmolality and hyponatremia SNOMED: 28639647 Status: stable, progressing Assessment/Plan dc ivf gt feeds abx per id follow up cultures monitor cxr replace k resp rx/o2 Subjective ROS Limited/Unobtainable: No Constitutional: Reports: malaise, weakness HEENT: Reports: no symptoms Cardiovascular: Reports: no symptoms Respiratory: Reports: cough, shortness of breath, sputum Gastrointestinal/Abdominal: Reports: no symptoms Genitourinary: Reports: no symptoms Neurologic/Psychiatric: Reports: pre-existing deficit Endocrine: Reports: no symptoms Hematologic/Lymphatic: Reports: anemia Allergies: Coded Allergies: No Known Allergies (Unverified , 01/27/17) All Systems: reviewed and negative except above Subjective seems to be improving. less congested. more alert and verbal. no fevers. on abx Objective Last 24 Hour Vital Signs Date Time Temp Pulse Resp B/P (MAP) Pulse Ox O2 Delivery O2 Flow Rate FiO2 02/23/18 09:33 92 141/55 02/23/18 08:00 Room Air 02/23/18 08:00 98.6 92 20 141/55 (83) 100 98.6 02/23/18 08:00 95 02/23/18 07:51 Room Air 21 02/23/18 07:48 96 Room Air 21 02/23/18 04:00 97.8 95 18 145/73 (97) 98 97.8 02/23/18 04:00 97 02/23/18 04:00 Room Air 02/23/18 03:12 Room Air 21 02/23/18 03:12 Room Air 21 02/23/18 00:00 100 02/23/18 00:00 97.8 98 18 135/75 (95) 98 97.8 02/23/18 00:00 97.4 92 17 128/65 (86) 98 97.4 02/23/18 00:00 Room Air 02/22/18 23:19 Room Air 21 02/22/18 23:19 Room Air 21 02/22/18 20:00 102 02/22/18 20:00 Room Air 02/22/18 20:00 97.3 89 17 128/65 (86) 98 97.3 02/22/18 19:29 78 18 98 Room Air 02/22/18 19:21 67 22 97 Room Air 02/22/18 19:02 Room Air 02/22/18 19:02 97 Room Air 21 02/22/18 16:00 97.2 87 16 126/64 (84) 100 97.2 02/22/18 16:00 Room Air 02/22/18 16:00 82 02/22/18 15:04 Room Air 02/22/18 15:03 68 20 100 Room Air 02/22/18 12:18 74 20 98 Room Air 02/22/18 12:11 75 20 98 Room Air 02/22/18 12:00 Room Air 02/22/18 12:00 96.8 89 20 138/73 (94) 100 96.8 02/22/18 11:56 73 Intake and Output 02/22/18 02/23/18 19:00 07:00 Intake Total 1565.9167 ml 1746.55 ml Output Total 600 ml 650 ml Balance 965.9167 ml 1096.55 ml Intake Free Water 100 ml IV Total 1290.9167 ml 1346.55 ml Tube Feeding 165 ml 300 ml Other 110 ml Output Urine Total 600 ml 650 ml # Bowel Movements 2 Laboratory Tests 02/23/18 03:10: White Blood Count 3.6L, Red Blood Count 3.86L, Hemoglobin 9.5L, Hematocrit 29.7L , Mean Corpuscular Volume 77L, Mean Corpuscular Hemoglobin 24.5L, Mean Corpuscular Hemoglobin Concent 31.8L, Red Cell Distribution Width 14.7, Platelet Count 201, Mean Platelet Volume 5.6L, Neutrophils (%) (Auto) 75.9H, Lymphocytes (%) (Auto) 8.4L, Monocytes (%) (Auto) 14.7H, Eosinophils (%) (Auto) 0.2, Basophils (%) (Auto) 0.9, Sodium Level 137, Potassium Level 3.5, Chloride Level 101, Carbon Dioxide Level 26, Anion Gap 10, Blood Urea Nitrogen 8, Creatinine 0.7, Estimat Glomerular Filtration Rate , Glucose Level 101, Calcium Level 9.0, Total Bilirubin 0.6, Aspartate Amino Transf (AST/SGOT) 78H, Alanine Aminotransferase (ALT/SGPT) 42, Alkaline Phosphatase 291H, Total Protein 6.7, Albumin 2.2L, Globulin 4.5, Albumin/Globulin Ratio 0.5L Height (Feet): 5 Height (Inches): 10.00 Weight (Pounds): 160 General Appearance: WD/WN, alert Neck: supple Cardiovascular: regular rhythm Respiratory/Chest: rhonchi - bilaterally Abdomen: normal bowel sounds, non tender, soft, no organomegaly Edema: no edema noted Arm (L), no edema noted Arm (R), no edema noted Leg (L), no edema noted Leg (R), no edema noted Pedal (L), no edema noted Pedal (R), no edema noted Generalized Neurologic: responsive, disoriented Jarrod Vásquez MD Feb 23, 2018 10:48
--- NOTE | 2018-02-23 11:07 | Infectious Diseases Prog Note ---
Assessment/Plan Assessment/Plan A: Pneumonia VRE colonization Dementia BPH Seizure disorder Hypoxemia Anemia P; Continue Zosyn Discontinue Vancomycin Subjective ROS Limited/Unobtainable: Yes Allergies: Coded Allergies: No Known Allergies (Unverified , 01/27/17) Objective Vital Signs Last 24 Hour Vital Signs Date Time Temp Pulse Resp B/P (MAP) Pulse Ox O2 Delivery O2 Flow Rate FiO2 02/23/18 09:33 92 141/55 02/23/18 08:00 Room Air 02/23/18 08:00 98.6 92 20 141/55 (83) 100 98.6 02/23/18 08:00 95 02/23/18 07:51 Room Air 02/23/18 07:48 96 Room Air 02/23/18 04:00 97.8 95 18 145/73 (97) 98 97.8 02/23/18 04:00 97 02/23/18 04:00 Room Air 02/23/18 03:12 Room Air 02/23/18 03:12 Room Air 02/23/18 00:00 100 02/23/18 00:00 97.8 98 18 135/75 (95) 98 97.8 02/23/18 00:00 97.4 92 17 128/65 (86) 98 97.4 02/23/18 00:00 Room Air 02/22/18 23:19 Room Air 02/22/18 23:19 Room Air 02/22/18 20:00 102 02/22/18 20:00 Room Air 02/22/18 20:00 97.3 89 17 128/65 (86) 98 97.3 02/22/18 19:29 78 18 98 Room Air 02/22/18 19:21 67 22 97 Room Air 02/22/18 19:02 Room Air 02/22/18 19:02 97 Room Air 02/22/18 16:00 97.2 87 16 126/64 (84) 100 97.2 02/22/18 16:00 Room Air 02/22/18 16:00 82 02/22/18 15:04 Room Air 02/22/18 15:03 68 20 100 Room Air 02/22/18 12:18 74 20 98 Room Air 02/22/18 12:11 75 20 98 Room Air 02/22/18 12:00 Room Air 02/22/18 12:00 96.8 89 20 138/73 (94) 100 96.8 02/22/18 11:56 73 Height (Feet): 5 Height (Inches): 10.00 Weight (Pounds): 160 HEENT: mucous membranes moist Respiratory/Chest: lungs clear Cardiovascular: normal rate Abdomen: soft, non tender, other - GT feeding Genitourinary: other - Condom catheter Extremities: no edema Neurologic/Psychiatric: disoriented, other - opens eyes Microbiology Date/Time Source Procedure Growth Status 02/20/18 16:42 Blood Blood Culture - Preliminary NO GROWTH AFTER 48 HOURS Resulted 02/20/18 16:42 Blood Blood Culture - Preliminary NO GROWTH AFTER 48 HOURS Resulted 02/21/18 16:40 Sputum Gram Stain - Final Complete 02/21/18 16:40 Sputum Sputum Culture - Final NORMAL UPPER RESPIRATORY BARON PRESENT Complete 02/20/18 17:45 Nasal Nares MRSA Culture - Final NO METHICILLIN RESISTANT STAPH AUREUS... Complete 02/20/18 17:47 Urine,Clean Catch Urine Culture - Final Kaylah Albicans Complete 02/20/18 17:45 Rectum VRE Culture - Final Enterococcus Faecium - Vre Complete 02/20/18 17:45 Rectum - Final NO CARBAPENEM-RESISTANT ENTEROBACTERI... Complete Laboratory Tests Test 02/23/18 03:10 White Blood Count 3.6 K/UL (4.8-10.8) L Red Blood Count 3.86 M/UL (4.70-6.10) L Hemoglobin 9.5 G/DL (14.2-18.0) L Hematocrit 29.7 % (42.0-52.0) L Mean Corpuscular Volume 77 FL (80-99) L Mean Corpuscular Hemoglobin 24.5 PG (27.0-31.0) L Mean Corpuscular Hemoglobin Concent 31.8 G/DL (32.0-36.0) L Red Cell Distribution Width 14.7 % (11.6-14.8) Platelet Count 201 K/UL (150-450) Mean Platelet Volume 5.6 FL (6.5-10.1) L Neutrophils (%) (Auto) 75.9 % (45.0-75.0) H Lymphocytes (%) (Auto) 8.4 % (20.0-45.0) L Monocytes (%) (Auto) 14.7 % (1.0-10.0) H Eosinophils (%) (Auto) 0.2 % (0.0-3.0) Basophils (%) (Auto) 0.9 % (0.0-2.0) Sodium Level 137 MMOL/L (136-145) Potassium Level 3.5 MMOL/L (3.5-5.1) Chloride Level 101 MMOL/L (98-107) Carbon Dioxide Level 26 MMOL/L (21-32) Anion Gap 10 mmol/L (5-15) Blood Urea Nitrogen 8 mg/dL (7-18) Creatinine 0.7 MG/DL (0.55-1.30) Estimat Glomerular Filtration Rate mL/min (>60) Glucose Level 101 MG/DL (74-106) Calcium Level 9.0 MG/DL (8.5-10.1) Total Bilirubin 0.6 MG/DL (0.2-1.0) Aspartate Amino Transf (AST/SGOT) 78 U/L (15-37) H Alanine Aminotransferase (ALT/SGPT) 42 U/L (12-78) Alkaline Phosphatase 291 U/L (46-116) H Total Protein 6.7 G/DL (6.4-8.2) Albumin 2.2 G/DL (3.4-5.0) L Globulin 4.5 g/dL Albumin/Globulin Ratio 0.5 (1.0-2.7) L Current Medications Medications (Trade) Dose Ordered Sig/Iram Route PRN Reason Start Time Stop Time Status Last Admin Dose Admin Acetaminophen (Tylenol) 650 mg Q4H PRN ORAL Fever/Headache/Mild Pain 02/20/18 21:15 03/22/18 21:14 Acetylcysteine (Mucomyst) 100 mg TIDRT [facility] 02/21/18 13:00 03/23/18 12:59 02/23/18 07:48 Albuterol/ Ipratropium (Albuterol/ Ipratropium) 3 ml Q4HRT [facility] 02/20/18 23:00 02/25/18 22:59 02/23/18 07:47 Amlodipine Besylate (Norvasc) 10 mg DAILY ORAL 02/21/18 09:00 03/23/18 08:59 02/23/18 09:33 Aspirin (ASA) 81 mg DAILY ORAL 02/21/18 09:00 03/23/18 08:59 02/23/18 09:33 Atorvastatin Calcium (Lipitor) 40 mg BEDTIME ORAL 02/21/18 21:00 03/23/18 20:59 02/22/18 20:30 Bisacodyl (Dulcolax) 10 mg DAILY PRN RECTAL CONSTIPATION 02/20/18 21:15 03/22/18 21:14 Docusate Sodium (Colace) 100 mg DAILY ORAL 02/21/18 09:00 03/23/18 08:59 02/23/18 09:34 Doxazosin Mesylate (Cardura) 1 mg DAILY ORAL 02/21/18 09:00 03/23/18 08:59 02/23/18 09:33 Famotidine (Pepcid) 20 mg DAILY ORAL 02/21/18 09:00 03/23/18 08:59 02/23/18 09:34 Heparin Sodium (Porcine) (Heparin 5000 units/ml) 5,000 units EVERY 12 HOURS SUBQ 02/22/18 09:00 03/24/18 08:59 02/23/18 09:40 Magnesium Hydroxide (Mom) 30 ml DAILY ORAL 02/21/18 09:00 03/23/18 08:59 02/23/18 09:33 Midodrine (Pro-Amatine) 2.5 mg THREE TIMES A DAY ORAL 02/21/18 09:00 03/23/18 08:59 02/23/18 09:33 Multivitamins Therapeutic (Therapeutic Multivitamin) 1 ea DAILY ORAL 02/21/18 09:00 03/23/18 08:59 02/23/18 09:33 Piperacillin Sod/ Tazobactam Sod 3.375 gm/Sodium Chloride 110 ml @ 27.5 mls/hr EVERY 8 HOURS IVPB 02/21/18 12:00 02/26/18 11:59 02/23/18 06:08 Potassium Chloride (K-Dur) 30 meq ONCE ORAL 02/23/18 11:00 02/23/18 13:00 Sennosides (Senokot) 2 tab BID PRN GT Constipation 02/20/18 21:15 03/22/18 21:14 Sodium Phosphate (Fleet's Sodium Phosl Enema) 133 ml Q2D PRN RECTAL CONSTIPATION 02/20/18 21:15 03/22/18 21:14 Tamsulosin HCl (Flomax) 0.4 mg BEDTIME ORAL 02/21/18 21:00 03/23/18 20:59 02/22/18 20:30 Vancomycin HCl (Rx Monitoring Vancomycin) 1 ea DAILY PRN MISC PNEUMONIA 02/20/18 21:30 03/22/18 21:29 Vancomycin HCl 1 gm/Dextrose 275 ml @ 183.708 mls/hr Q12H IVPB 02/21/18 10:00 02/26/18 09:59 02/23/18 09:56 Rahul Shen MD Feb 23, 2018 11:07
[2018-02-23 12:00] VITALS: BP 138/56
[2018-02-23 16:00] VITALS: BP 133/63
[2018-02-23 19:49] VITALS: BP 138/69
[2018-02-23] MEDS: Tamsulosin 0.4mg cap ORAL SCH (20:57)
[2018-02-23] MEDS: Atorvastatin 20mg tab ORAL SCH (20:58)
[2018-02-24] VITALS: BP 137/66
[2018-02-24] MEDS: Albuterol/Ipratropium 3ml neb HHN SCH ×6 (02:51→23:00)
[2018-02-24 04:00] VITALS: BP 124/70
[2018-02-24] MEDS: Piperacillin/Tazobactam 3.375 GM in NS 110 ML IVPB SCH ×3 (05:20→21:50)
[2018-02-24 08:00] VITALS: BP 118/61
--- NOTE | 2018-02-24 08:22 | Pulmonology Progress Note ---
Assessment/Plan Assessment/Plan respiratory insufficiency respiratory alkalosis hypoxemia abnormal CXR chronic interstitial change possible pneumonitis possible aspiration pneumonia GT PLAN monitor for change empiric antibiotics- all reviewed respiratory care oxygen aspiration precautions snf meds as is head of bed elevated and monitor monitor closely for deterioration and change ABG PRN impression, plan, and exam edited and reviewed in detail care discussed with RN Subjective ROS Limited/Unobtainable: Yes Allergies: Coded Allergies: No Known Allergies (Unverified , 01/27/17) Subjective stable on FM oxygen mask reduced LOC Objective Last 24 Hour Vital Signs Date Time Temp Pulse Resp B/P (MAP) Pulse Ox O2 Delivery O2 Flow Rate FiO2 02/24/18 06:38 99 20 100 Room Air 21 02/24/18 06:30 91 2 99 Room Air 02/24/18 04:00 98.2 100 23 124/70 (88) 100 98.2 02/24/18 04:00 94 02/24/18 03:58 Room Air 02/24/18 02:59 77 22 98 Room Air 02/24/18 02:51 78 20 96 Room Air 02/24/18 00:00 91 02/24/18 00:00 Room Air 02/24/18 00:00 98.4 98 24 137/66 (89) 100 98.4 02/23/18 23:21 75 22 99 Room Air 02/23/18 23:11 73 20 97 Room Air 02/23/18 20:00 101 02/23/18 20:00 Room Air 02/23/18 19:49 74 22 100 Room Air 02/23/18 19:49 98.5 92 20 138/69 (92) 99 98.5 02/23/18 19:14 70 20 95 Room Air 02/23/18 16:01 77 22 100 Room Air 21 02/23/18 16:01 74 22 100 Room Air 21 02/23/18 16:00 Room Air 02/23/18 16:00 98.7 83 20 133/63 (86) 100 98.7 02/23/18 16:00 82 02/23/18 15:51 71 20 98 Room Air 02/23/18 12:13 76 20 100 Room Air 21 02/23/18 12:03 73 22 99 Room Air 02/23/18 12:00 Room Air 02/23/18 12:00 97.6 81 18 138/56 (83) 99 97.6 02/23/18 12:00 78 02/23/18 09:33 92 141/55 Intake and Output 02/23/18 02/24/18 19:00 07:00 Intake Total 1019.908 ml 817.5 ml Output Total 800 ml 1650 ml Balance 219.908 ml -832.5 ml Intake Free Water 200 ml 200 ml IV Total 449.908 ml 137.5 ml Tube Feeding 370 ml 480 ml Output Urine Total 800 ml 1650 ml # Bowel Movements 1 Objective WDWN NAD reduced LOC reduced breath sounds bilaterally with persistent rhonchi [id number] without MRG NABS nontender no HSM; GT no CC; mild edema; reduced ROM weak and nonverbal Microbiology Date/Time Source Procedure Growth Status 02/21/18 16:40 Sputum Gram Stain - Final Complete 02/21/18 16:40 Sputum Sputum Culture - Final NORMAL UPPER RESPIRATORY BARON PRESENT Complete Current Medications Medications (Trade) Dose Ordered Sig/Iram Route PRN Reason Start Time Stop Time Status Last Admin Dose Admin Acetaminophen (Tylenol) 650 mg Q4H PRN ORAL Fever/Headache/Mild Pain 02/20/18 21:15 03/22/18 21:14 Acetylcysteine (Mucomyst) 100 mg TIDRT [facility] 02/21/18 13:00 03/23/18 12:59 02/24/18 07:08 Albuterol/ Ipratropium (Albuterol/ Ipratropium) 3 ml Q4HRT [facility] 02/20/18 23:00 02/25/18 22:59 02/24/18 07:08 Amlodipine Besylate (Norvasc) 10 mg DAILY ORAL 02/21/18 09:00 03/23/18 08:59 02/23/18 09:33 Aspirin (ASA) 81 mg DAILY ORAL 02/21/18 09:00 03/23/18 08:59 02/23/18 09:33 Atorvastatin Calcium (Lipitor) 40 mg BEDTIME ORAL 02/21/18 21:00 03/23/18 20:59 02/23/18 20:58 Bisacodyl (Dulcolax) 10 mg DAILY PRN RECTAL CONSTIPATION 02/20/18 21:15 03/22/18 21:14 Docusate Sodium (Colace) 100 mg DAILY ORAL 02/21/18 09:00 03/23/18 08:59 02/23/18 09:34 Doxazosin Mesylate (Cardura) 1 mg DAILY ORAL 02/21/18 09:00 03/23/18 08:59 02/23/18 09:33 Famotidine (Pepcid) 20 mg DAILY ORAL 02/21/18 09:00 03/23/18 08:59 02/23/18 09:34 Heparin Sodium (Porcine) (Heparin 5000 units/ml) 5,000 units EVERY 12 HOURS SUBQ 02/22/18 09:00 03/24/18 08:59 02/23/18 21:01 Magnesium Hydroxide (Mom) 30 ml DAILY ORAL 02/21/18 09:00 03/23/18 08:59 02/23/18 09:33 Midodrine (Pro-Amatine) 2.5 mg THREE TIMES A DAY ORAL 02/21/18 09:00 03/23/18 08:59 02/23/18 18:15 Multivitamins Therapeutic (Therapeutic Multivitamin) 1 ea DAILY ORAL 02/21/18 09:00 03/23/18 08:59 02/23/18 09:33 Piperacillin Sod/ Tazobactam Sod 3.375 gm/Sodium Chloride 110 ml @ 27.5 mls/hr EVERY 8 HOURS IVPB 02/21/18 12:00 02/26/18 11:59 02/24/18 05:20 Sennosides (Senokot) 2 tab BID PRN GT Constipation 02/20/18 21:15 03/22/18 21:14 Sodium Phosphate (Fleet's Sodium Phosl Enema) 133 ml Q2D PRN RECTAL CONSTIPATION 02/20/18 21:15 03/22/18 21:14 Tamsulosin HCl (Flomax) 0.4 mg BEDTIME ORAL 02/21/18 21:00 03/23/18 20:59 02/23/18 20:57 Nakul Cisse MD Feb 24, 2018 08:22
[2018-02-24] MEDS: Milk of Magnesia 30ml Ud ORAL SCH (09:55)
[2018-02-24] MEDS: Doxazosin 1mg Tab ORAL SCH (09:55)
[2018-02-24] MEDS: Aspirin Baby 81mg ORAL SCH (09:56)
[2018-02-24] MEDS: Docusate 100mg cap ORAL SCH (09:56)
[2018-02-24] MEDS: Multivitamin w/Minerals tab ORAL SCH (09:56)
[2018-02-24] MEDS: Heparin 5000 units/ml inj SUBQ SCH ×2 (10:00→21:52)
[2018-02-24] MEDS ORDERED: Tubing IV Secondary IV ONE (10:39)
[2018-02-24] MEDS ORDERED: Sterile Water Irrig 1000ml IRRIG ONE (10:39)
[2018-02-24] MEDS ORDERED: NS 275ml ONE (10:39)
[2018-02-24 12:00] VITALS: BP 127/84
--- NOTE | 2018-02-24 12:42 | Infectious Diseases Prog Note ---
Assessment/Plan Assessment/Plan A: Pneumonia VRE colonization Dementia BPH Seizure disorder Hypoxemia Anemia P; Continue Zosyn Subjective ROS Limited/Unobtainable: Yes Allergies: Coded Allergies: No Known Allergies (Unverified , 01/27/17) Objective Vital Signs Last 24 Hour Vital Signs Date Time Temp Pulse Resp B/P (MAP) Pulse Ox O2 Delivery O2 Flow Rate FiO2 02/24/18 12:00 98.6 93 26 127/84 (98) 98 98.6 02/24/18 12:00 Room Air 02/24/18 11:10 88 20 99 Room Air 21 02/24/18 11:00 93 20 99 02/24/18 09:57 102 118/61 02/24/18 08:00 Room Air 02/24/18 08:00 98.6 102 30 118/61 (80) 98 98.6 02/24/18 08:00 104 02/24/18 06:38 99 20 100 Room Air 02/24/18 06:30 91 20 99 Simple Mask 02/24/18 04:00 98.2 100 23 124/70 (88) 100 98.2 02/24/18 04:00 94 02/24/18 03:58 Room Air 02/24/18 02:59 77 22 98 Room Air 02/24/18 02:51 78 20 96 Room Air 02/24/18 00:00 91 02/24/18 00:00 Room Air 02/24/18 00:00 98.4 98 24 137/66 (89) 100 98.4 02/23/18 23:21 75 22 99 Room Air 02/23/18 23:11 73 20 97 Room Air 02/23/18 20:00 101 02/23/18 20:00 Room Air 02/23/18 19:49 74 22 100 Room Air 02/23/18 19:49 98.5 92 20 138/69 (92) 99 98.5 02/23/18 19:14 70 20 95 Room Air 02/23/18 16:01 77 22 100 Room Air 21 02/23/18 16:01 74 22 100 Room Air 21 02/23/18 16:00 Room Air 02/23/18 16:00 98.7 83 20 133/63 (86) 100 98.7 02/23/18 16:00 82 02/23/18 15:51 71 20 98 Room Air Height (Feet): 5 Height (Inches): 10.00 Weight (Pounds): 160 General Appearance: no acute distress HEENT: mucous membranes moist Respiratory/Chest: lungs clear Cardiovascular: normal rate Abdomen: soft, non tender, other - GT feeding Extremities: no edema Neurologic/Psychiatric: alert, responsive, disoriented Microbiology Date/Time Source Procedure Growth Status 02/21/18 16:40 Sputum Gram Stain - Final Complete 02/21/18 16:40 Sputum Sputum Culture - Final NORMAL UPPER RESPIRATORY BARON PRESENT Complete Current Medications Medications (Trade) Dose Ordered Sig/Iram Route PRN Reason Start Time Stop Time Status Last Admin Dose Admin Acetaminophen (Tylenol) 650 mg Q4H PRN ORAL Fever/Headache/Mild Pain 02/20/18 21:15 03/22/18 21:14 Acetylcysteine (Mucomyst) 100 mg TIDRT N 02/21/18 13:00 03/23/18 12:59 02/24/18 07:08 Albuterol/ Ipratropium (Albuterol/ Ipratropium) 3 ml Q4HRT [facility] 02/20/18 23:00 02/25/18 22:59 02/24/18 12:20 Amlodipine Besylate (Norvasc) 10 mg DAILY ORAL 02/21/18 09:00 03/23/18 08:59 02/24/18 09:57 Aspirin (ASA) 81 mg DAILY ORAL 02/21/18 09:00 03/23/18 08:59 02/24/18 09:56 Atorvastatin Calcium (Lipitor) 40 mg BEDTIME ORAL 02/21/18 21:00 03/23/18 20:59 02/23/18 20:58 Bisacodyl (Dulcolax) 10 mg DAILY PRN RECTAL CONSTIPATION 02/20/18 21:15 03/22/18 21:14 Docusate Sodium (Colace) 100 mg DAILY ORAL 02/21/18 09:00 03/23/18 08:59 02/24/18 09:56 Doxazosin Mesylate (Cardura) 1 mg DAILY ORAL 02/21/18 09:00 03/23/18 08:59 02/24/18 09:55 Famotidine (Pepcid) 20 mg DAILY ORAL 02/21/18 09:00 03/23/18 08:59 02/24/18 09:55 Heparin Sodium (Porcine) (Heparin 5000 units/ml) 5,000 units EVERY 12 HOURS SUBQ 02/22/18 09:00 03/24/18 08:59 02/24/18 10:00 Magnesium Hydroxide (Mom) 30 ml DAILY ORAL 02/21/18 09:00 03/23/18 08:59 02/24/18 09:55 Midodrine (Pro-Amatine) 2.5 mg THREE TIMES A DAY ORAL 02/21/18 09:00 03/23/18 08:59 02/24/18 09:56 Multivitamins Therapeutic (Therapeutic Multivitamin) 1 ea DAILY ORAL 02/21/18 09:00 03/23/18 08:59 02/24/18 09:56 Piperacillin Sod/ Tazobactam Sod 3.375 gm/Sodium Chloride 110 ml @ 27.5 mls/hr EVERY 8 HOURS IVPB 02/21/18 12:00 02/26/18 11:59 02/24/18 05:20 Sennosides (Senokot) 2 tab BID PRN GT Constipation 02/20/18 21:15 03/22/18 21:14 Sodium Phosphate (Fleet's Sodium Phosl Enema) 133 ml Q2D PRN RECTAL CONSTIPATION 02/20/18 21:15 03/22/18 21:14 Tamsulosin HCl (Flomax) 0.4 mg BEDTIME ORAL 02/21/18 21:00 03/23/18 20:59 02/23/18 20:57 Rahul Shen MD Feb 24, 2018 12:42
--- NOTE | 2018-02-24 15:25 | Diagnostic Imaging Report ---
Indication: Shortness of breath Technique: XRAY Chest 1v Comparison: 02/20/2018 Findings: Diffuse micronodular opacities again noted without significant interval change compared to the prior exam. There is increased linear opacity in the mid/lower right lung. Possible development of trace right pleural effusion. No pneumothorax. Degenerative change of the spine. No acute osseous abnormality. Impression: Unchanged diffuse micronodular opacities. There are increased linear opacities at the right mid/lower lung.
[2018-02-24 16:00] VITALS: BP 120/69
[2018-02-24] MEDS ORDERED: Fluconazole 100mg tab ORAL SCH (18:00)
[2018-02-24 20:00] VITALS: BP 168/71
[2018-02-24] MEDS: Tamsulosin 0.4mg cap ORAL SCH (21:00)
[2018-02-24] MEDS: Atorvastatin 20mg tab ORAL SCH (21:00)
[2018-02-25] VITALS: BP 119/57
--- NOTE | 2018-02-25 01:00 | Progress Note ---
DATE: 02/24/2018 CARDIOLOGY, INTERNAL MEDICINE PROGRESS NOTE SUBJECTIVE: The patient still has episodes of congestion. Afebrile. OBJECTIVE: VITAL SIGNS: Blood pressure 124/70, pulse 100, and respirations 23. Monitored rhythm, sinus tachycardia. LUNGS: Coarse breath sounds. Scattered rhonchi. HEART: Regular rhythm and rate. Normal S1, S2. ABDOMEN: Soft. No edema. G-tube intact. DIAGNOSTIC DATA: Chest x-ray yesterday revealed increased interstitial markings. IMPRESSION: 1. Aspiration pneumonia. 2. Hypoxia. 3. Severe protein-calorie malnutrition. 4. Dementia. 5. Hypokalemia. 6. Hyponatremia. 7. Anemia. PLAN: 1. Antimicrobials. 2. Bronchodilators. 3. Respiratory hygiene. 4. Nasal oxygen. 5. Protein supplement. 6. Feedings by G-tube. 7. Replace potassium. 8. Check magnesium. 9. DVT prophylaxis. Jones Arauz M.D. DR: ROBYN JOB#: [id number] CC:
[2018-02-25] MEDS: Albuterol/Ipratropium 3ml neb HHN SCH ×5 (03:33→20:41)
[2018-02-25 04:00] VITALS: BP 119/46
[2018-02-25 04:36] LABS: BASOPHILS % (AUTO) 0.6 % (0.0-2.0); EOSINOPHILS % (AUTO) 0.1 % (0.0-3.0); HEMATOCRIT 30.9 % (42.0-52.0); HEMOGLOBIN 9.8 G/DL (14.2-18.0); LYMPHOCYTES % (AUTO) 11.7 % (20.0-45.0); MEAN CORPUSCULAR VOLUME 77 FL (80-99); MONOCYTES % (AUTO) 13.1 % (1.0-10.0); NEUTROPHILS % (AUTO) 74.5 % (45.0-75.0); PLATELET COUNT 218 K/UL (150-450); RED BLOOD COUNT 4.02 M/UL (4.70-6.10); WHITE BLOOD COUNT 3.9 K/UL (4.8-10.8)
[2018-02-25 04:58] LABS: ALANINE AMINOTRANSFERASE 26 U/L (12-78); ALBUMIN 2.2 G/DL (3.4-5.0); ALBUMIN/GLOBULIN RATIO 0.5 (1.0-2.7); ALKALINE PHOSPHATASE 297 U/L (46-116); ANION GAP 8 mmol/L (5-15); ASPARTATE AMINO TRANSFERASE 63 U/L (15-37); BILIRUBIN,TOTAL 0.6 MG/DL (0.2-1.0); BLOOD UREA NITROGEN 13 mg/dL (7-18); CALCIUM 9.3 MG/DL (8.5-10.1); CARBON DIOXIDE 30 MMOL/L (21-32); CHLORIDE 103 MMOL/L (98-107); CREATININE 0.8 MG/DL (0.55-1.30); POTASSIUM 3.5 MMOL/L (3.5-5.1); SODIUM 140 MMOL/L (136-145)
[2018-02-25] MEDS: Piperacillin/Tazobactam 3.375 GM in NS 110 ML IVPB SCH ×3 (05:58→21:53)
--- NOTE | 2018-02-25 07:38 | Pulmonology Progress Note ---
Assessment/Plan Assessment/Plan respiratory insufficiency respiratory alkalosis hypoxemia abnormal CXR chronic interstitial change possible pneumonitis possible aspiration pneumonia GT PLAN monitor for change and will recommend respiratory care oxygen aspiration precautions snf meds DVT proph head of bed elevated and monitor monitor closely for deterioration and change ABG PRN monitor imaging impression, plan, and exam edited and reviewed in detail care discussed with RN Subjective ROS Limited/Unobtainable: Yes Allergies: Coded Allergies: No Known Allergies (Unverified , 01/27/17) Subjective same on FM oxygen mask reduced LOC Objective Last 24 Hour Vital Signs Date Time Temp Pulse Resp B/P (MAP) Pulse Ox O2 Delivery O2 Flow Rate FiO2 02/25/18 04:00 97.7 94 18 119/46 (70) 97 97.7 02/25/18 04:00 Room Air 02/25/18 04:00 88 02/25/18 03:41 89 20 96 Room Air 02/25/18 03:30 87 20 94 Room Air 02/25/18 00:00 97.7 93 20 119/57 (77) 94 97.7 02/25/18 00:00 92 02/25/18 00:00 Room Air 02/24/18 23:38 Room Air 02/24/18 23:37 Room Air 02/24/18 20:10 90 20 97 Room Air 21 02/24/18 20:00 97.7 90 20 168/71 (103) 94 97.7 02/24/18 20:00 92 02/24/18 20:00 Room Air 02/24/18 19:57 82 22 95 Room Air 02/24/18 16:00 97.5 86 28 120/69 (86) 98 97.5 02/24/18 16:00 Room Air 02/24/18 16:00 81 02/24/18 15:49 88 20 98 Room Air 21 02/24/18 15:39 89 20 97 Room Air 02/24/18 12:00 98.6 93 26 127/84 (98) 98 98.6 02/24/18 12:00 Room Air 02/24/18 12:00 86 02/24/18 11:10 88 20 99 Room Air 21 02/24/18 11:00 93 20 99 Room Air 02/24/18 09:57 102 118/61 02/24/18 08:00 Room Air 02/24/18 08:00 98.6 102 30 118/61 (80) 98 98.6 02/24/18 08:00 104 Intake and Output 02/24/18 02/25/18 19:00 07:00 Intake Total 867.5 ml 137.5 ml Output Total 1200 ml 1000 ml Balance -332.5 ml -862.5 ml Intake Free Water 200 ml IV Total 27.5 ml 137.5 ml Tube Feeding 400 ml Other 240 ml Output Urine Total 1200 ml 1000 ml # Bowel Movements 1 Objective WDWN NAD reduced LOC reduced breath sounds bilaterally with some rhonchi [id number] without MRG NABS nontender no HSM; GT no CC; mild edema; reduced ROM weak and nonverbal Laboratory Tests 02/25/18 03:12: White Blood Count 3.9L, Red Blood Count 4.02L, Hemoglobin 9.8L, Hematocrit 30.9L , Mean Corpuscular Volume 77L, Mean Corpuscular Hemoglobin 24.3L, Mean Corpuscular Hemoglobin Concent 31.6L, Red Cell Distribution Width 15.0H, Platelet Count 218, Mean Platelet Volume 5.0L, Neutrophils (%) (Auto) 74.5, Lymphocytes (%) (Auto) 11.7L, Monocytes (%) (Auto) 13.1H, Eosinophils (%) (Auto ) 0.1, Basophils (%) (Auto) 0.6, Sodium Level 140, Potassium Level 3.5, Chloride Level 103, Carbon Dioxide Level 30, Anion Gap 8, Blood Urea Nitrogen 13 , Creatinine 0.8, Estimat Glomerular Filtration Rate , Glucose Level 72L, Calcium Level 9.3, Magnesium Level 1.9, Total Bilirubin 0.6, Aspartate Amino Transf (AST/SGOT) 63H, Alanine Aminotransferase (ALT/SGPT) 26, Alkaline Phosphatase 297H, Pro-B-Type Natriuretic Peptide 369H, Total Protein 6.8, Albumin 2.2L, Globulin 4.6, Albumin/Globulin Ratio 0.5L Current Medications Medications (Trade) Dose Ordered Sig/Iram Route PRN Reason Start Time Stop Time Status Last Admin Dose Admin Acetaminophen (Tylenol) 650 mg Q4H PRN ORAL Fever/Headache/Mild Pain 02/20/18 21:15 03/22/18 21:14 Acetylcysteine (Mucomyst) 100 mg TIDRT [facility] 02/21/18 13:00 03/23/18 12:59 02/24/18 19:54 Albuterol/ Ipratropium (Albuterol/ Ipratropium) 3 ml Q4HRT [facility] 02/20/18 23:00 02/25/18 22:59 02/25/18 03:33 Amlodipine Besylate (Norvasc) 10 mg DAILY ORAL 02/21/18 09:00 03/23/18 08:59 02/24/18 09:57 Aspirin (ASA) 81 mg DAILY ORAL 02/21/18 09:00 03/23/18 08:59 02/24/18 09:56 Atorvastatin Calcium (Lipitor) 40 mg BEDTIME ORAL 02/21/18 21:00 03/23/18 20:59 02/23/18 20:58 Bisacodyl (Dulcolax) 10 mg DAILY PRN RECTAL CONSTIPATION 02/20/18 21:15 03/22/18 21:14 Docusate Sodium (Colace) 100 mg DAILY ORAL 02/21/18 09:00 03/23/18 08:59 02/24/18 09:56 Doxazosin Mesylate (Cardura) 1 mg DAILY ORAL 02/21/18 09:00 03/23/18 08:59 02/24/18 09:55 Famotidine (Pepcid) 20 mg DAILY ORAL 02/21/18 09:00 03/23/18 08:59 02/24/18 09:55 Fluconazole (Diflucan) 100 mg DAILY ORAL 02/25/18 09:00 03/04/18 08:59 Heparin Sodium (Porcine) (Heparin 5000 units/ml) 5,000 units EVERY 12 HOURS SUBQ 02/22/18 09:00 03/24/18 08:59 02/24/18 21:52 Magnesium Hydroxide (Mom) 30 ml DAILY ORAL 02/21/18 09:00 03/23/18 08:59 02/24/18 09:55 Midodrine (Pro-Amatine) 2.5 mg THREE TIMES A DAY ORAL 02/21/18 09:00 03/23/18 08:59 02/24/18 18:27 Multivitamins Therapeutic (Therapeutic Multivitamin) 1 ea DAILY ORAL 02/21/18 09:00 03/23/18 08:59 02/24/18 09:56 Piperacillin Sod/ Tazobactam Sod 3.375 gm/Sodium Chloride 110 ml @ 27.5 mls/hr EVERY 8 HOURS IVPB 02/21/18 12:00 02/26/18 11:59 02/25/18 05:58 Sennosides (Senokot) 2 tab BID PRN GT Constipation 02/20/18 21:15 03/22/18 21:14 Sodium Phosphate (Fleet's Sodium Phosl Enema) 133 ml Q2D PRN RECTAL CONSTIPATION 02/20/18 21:15 03/22/18 21:14 Tamsulosin HCl (Flomax) 0.4 mg BEDTIME ORAL 02/21/18 21:00 03/23/18 20:59 02/23/18 20:57 Nakul Cisse MD Feb 25, 2018 07:38
[2018-02-25 08:00] VITALS: BP 117/44
[2018-02-25] MEDS: Docusate 100mg cap ORAL SCH (09:00)
[2018-02-25] MEDS: Multivitamin w/Minerals tab ORAL SCH (09:00)
[2018-02-25] MEDS: Milk of Magnesia 30ml Ud ORAL SCH (09:00)
[2018-02-25] MEDS: Fluconazole 100mg tab ORAL SCH (09:00)
[2018-02-25] MEDS: Doxazosin 1mg Tab ORAL SCH (09:00)
[2018-02-25] MEDS: Aspirin Baby 81mg ORAL SCH (09:00)
[2018-02-25] MEDS: Heparin 5000 units/ml inj SUBQ SCH ×2 (09:18→21:55)
[2018-02-25 12:00] VITALS: BP 100/58
[2018-02-25] MEDS: D5NS 1,000 ML IV SCH ×2 (12:03→21:53)
[2018-02-25 16:00] VITALS: BP 127/69
[2018-02-25 20:00] VITALS: BP 117/65
[2018-02-25] MEDS: Tamsulosin 0.4mg cap ORAL SCH (21:00)
[2018-02-25] MEDS: Atorvastatin 20mg tab ORAL SCH (21:00)
[2018-02-26] VITALS: BP 141/75
[2018-02-26 04:00] VITALS: BP 119/60
[2018-02-26] MEDS: Piperacillin/Tazobactam 3.375 GM in NS 110 ML IVPB SCH ×3 (06:01→21:40)
[2018-02-26] MEDS: Albuterol/Ipratropium 3ml neb HHN SCH ×4 (07:25→18:44)
[2018-02-26 08:00] VITALS: BP 120/64
[2018-02-26] MEDS: D5NS 1,000 ML IV SCH (08:12)
[2018-02-26] MEDS: Doxazosin 1mg Tab ORAL SCH (09:00)
[2018-02-26] MEDS: Aspirin Baby 81mg ORAL SCH (09:00)
[2018-02-26] MEDS: Fluconazole 100mg tab ORAL SCH (09:00)
[2018-02-26] MEDS: Multivitamins W/Minerals 15 ML UDC GT SCH (09:00)
[2018-02-26] MEDS: Milk of Magnesia 30ml Ud ORAL SCH (09:00)
[2018-02-26] MEDS: Docusate 100mg/10ml Liq GT SCH (09:00)
[2018-02-26] MEDS: Heparin 5000 units/ml inj SUBQ SCH ×2 (09:10→21:47)
--- NOTE | 2018-02-26 10:51 | Infectious Diseases Prog Note ---
Assessment/Plan Assessment/Plan antibiotics : zosyn, fluconazole A 1. pneumonia 2. fungal UTI 3. rectal VRE colonization 4. seizures 5. dementia P 1. continue zosyn, fluconazole 2. will follow up cultures Subjective ROS Limited/Unobtainable: Yes Allergies: Coded Allergies: No Known Allergies (Unverified , 01/27/17) Objective Vital Signs Last 24 Hour Vital Signs Date Time Temp Pulse Resp B/P (MAP) Pulse Ox O2 Delivery O2 Flow Rate FiO2 02/26/18 09:00 85 120/64 02/26/18 08:00 Room Air 02/26/18 08:00 97.0 91 18 120/64 (82) 98 97.0 02/26/18 08:00 85 02/26/18 07:25 83 16 95 Room Air 21 02/26/18 07:24 83 16 98 Room Air 21 02/26/18 04:00 97.2 85 18 119/60 (79) 96 97.2 02/26/18 04:00 74 02/26/18 04:00 Room Air 02/26/18 00:00 Room Air 02/26/18 00:00 97.9 97 18 141/75 (97) 100 97.9 02/26/18 00:00 80 02/25/18 23:09 Room Air 02/25/18 23:09 Room Air 02/25/18 22:58 70 16 Room Air 21 02/25/18 20:00 80 16 95 Room Air 21 02/25/18 20:00 88 16 98 Room Air 21 02/25/18 20:00 Room Air 02/25/18 20:00 79 02/25/18 20:00 98.1 80 20 117/65 (82) 99 98.1 02/25/18 16:00 98.0 84 17 127/69 (88) 98 98.0 02/25/18 16:00 Room Air 02/25/18 15:20 83 02/25/18 15:00 Room Air 02/25/18 15:00 Room Air 02/25/18 12:00 Room Air 02/25/18 12:00 98.0 89 18 100/58 (72) 96 98.0 02/25/18 11:55 84 16 98 Room Air 21 02/25/18 11:45 82 16 95 Room Air 21 02/25/18 11:42 93 Height (Feet): 5 Height (Inches): 10.00 Weight (Pounds): 131 Respiratory/Chest: lungs clear Cardiovascular: normal rate, regular rhythm, no gallop/murmur Abdomen: soft, non tender, other - GT Extremities: no edema Current Medications Medications (Trade) Dose Ordered Sig/Iram Route PRN Reason Start Time Stop Time Status Last Admin Dose Admin Acetaminophen (Tylenol) 650 mg Q4H PRN ORAL Fever/Headache/Mild Pain 02/20/18 21:15 03/22/18 21:14 Acetylcysteine (Mucomyst) 100 mg TIDRT N 02/21/18 13:00 03/23/18 12:59 02/26/18 07:25 Albuterol/ Ipratropium (Albuterol/ Ipratropium) 3 ml Q4HRT N 02/26/18 07:00 03/03/18 06:59 02/26/18 07:25 Amlodipine Besylate (Norvasc) 10 mg DAILY ORAL 02/21/18 09:00 03/23/18 08:59 02/24/18 09:57 Aspirin (ASA) 81 mg DAILY ORAL 02/21/18 09:00 03/23/18 08:59 02/24/18 09:56 Atorvastatin Calcium (Lipitor) 40 mg BEDTIME ORAL 02/21/18 21:00 03/23/18 20:59 02/23/18 20:58 Bisacodyl (Dulcolax) 10 mg DAILY PRN RECTAL CONSTIPATION 02/20/18 21:15 03/22/18 21:14 Dextrose/Sodium Chloride 1,000 ml @ 100 mls/hr Q10H IV 02/25/18 12:00 03/27/18 11:59 02/26/18 08:12 Docusate Sodium (Colace) 100 mg DAILY GT 02/26/18 09:00 03/28/18 08:59 Doxazosin Mesylate (Cardura) 1 mg DAILY ORAL 02/21/18 09:00 03/23/18 08:59 02/24/18 09:55 Famotidine (Pepcid) 20 mg DAILY ORAL 02/21/18 09:00 03/23/18 08:59 02/24/18 09:55 Fluconazole (Diflucan) 100 mg DAILY ORAL 02/25/18 09:00 03/04/18 08:59 Heparin Sodium (Porcine) (Heparin 5000 units/ml) 5,000 units EVERY 12 HOURS SUBQ 02/22/18 09:00 03/24/18 08:59 02/26/18 09:10 Magnesium Hydroxide (Mom) 30 ml DAILY ORAL 02/21/18 09:00 03/23/18 08:59 02/24/18 09:55 Midodrine (Pro-Amatine) 2.5 mg THREE TIMES A DAY ORAL 02/21/18 09:00 03/23/18 08:59 02/24/18 18:27 Multivitamins (Multivitamins W/ Minerals 15ml Liquid) 15 ml DAILY GT 02/26/18 09:00 03/28/18 08:59 Piperacillin Sod/ Tazobactam Sod 3.375 gm/Sodium Chloride 110 ml @ 27.5 mls/hr EVERY 8 HOURS IVPB 02/21/18 12:00 02/26/18 23:59 02/26/18 06:01 Sennosides (Senokot) 2 tab BID PRN GT Constipation 02/20/18 21:15 03/22/18 21:14 Sodium Phosphate (Fleet's Sodium Phosl Enema) 133 ml Q2D PRN RECTAL CONSTIPATION 02/20/18 21:15 03/22/18 21:14 Tamsulosin HCl (Flomax) 0.4 mg BEDTIME ORAL 02/21/18 21:00 03/23/18 20:59 02/23/18 20:57 RENÉE RICHARDSON Feb 26, 2018 10:51
[2018-02-26 12:00] VITALS: BP 138/76
--- NOTE | 2018-02-26 12:13 | Diagnostic Imaging Report ---
Indication: Reason For Exam: TUBE PLCMT Technique: Supine view of the abdomen after injection of water-soluble contrast into gastrostomy Comparison: Findings: Contrast opacifies the stomach. No contrast extravasation is demonstrated. The bowel gas pattern is unremarkable. Contrast appears to enter directly into the jejunum, indicating that there is probably a gastrojejunostomy anastomosis Impression: Satisfactory position of gastrostomy tube
[2018-02-26] MEDS ORDERED: Albuterol/Ipratropium 3ml neb HHN PRN (14:00)
[2018-02-26 16:00] VITALS: BP 136/70
--- NOTE | 2018-02-26 17:14 | Pulmonology Progress Note ---
Assessment/Plan Assessment/Plan respiratory insufficiency respiratory alkalosis hypoxemia abnormal CXR chronic interstitial change possible pneumonitis possible aspiration pneumonia GT PLAN monitor for change respiratory care oxygen aspiration precautions snf meds noted DVT proph head of bed elevated and monitor monitor closely for deterioration and change ABG PRN monitor imaging and change impression, plan, and exam edited and reviewed in detail care discussed with RN Subjective ROS Limited/Unobtainable: Yes Allergies: Coded Allergies: No Known Allergies (Unverified , 01/27/17) Subjective same on FM oxygen mask reduced LOC Objective Last 24 Hour Vital Signs Date Time Temp Pulse Resp B/P (MAP) Pulse Ox O2 Delivery O2 Flow Rate FiO2 02/26/18 16:00 Room Air 02/26/18 16:00 97.8 92 20 136/70 (92) 97 97.8 02/26/18 15:25 95 02/26/18 13:08 90 16 98 Room Air 21 02/26/18 12:59 78 16 94 Room Air 21 02/26/18 12:00 81 02/26/18 12:00 97.0 91 18 138/76 (96) 98 97.0 02/26/18 12:00 Room Air 02/26/18 09:00 85 120/64 02/26/18 08:00 Room Air 02/26/18 08:00 97.0 91 18 120/64 (82) 98 97.0 02/26/18 08:00 85 02/26/18 07:25 83 16 95 Room Air 21 02/26/18 07:24 83 16 98 Room Air 21 02/26/18 04:00 97.2 85 18 119/60 (79) 96 97.2 02/26/18 04:00 74 02/26/18 04:00 Room Air 02/26/18 00:00 Room Air 02/26/18 00:00 97.9 97 18 141/75 (97) 100 97.9 02/26/18 00:00 80 02/25/18 23:09 Room Air 02/25/18 23:09 Room Air 02/25/18 22:58 70 16 Room Air 21 02/25/18 20:00 80 16 95 Room Air 21 02/25/18 20:00 88 16 98 Room Air 21 02/25/18 20:00 Room Air 02/25/18 20:00 79 7/24/18 20:00 98.1 80 20 117/65 (82) 99 98.1 Intake and Output 02/25/18 02/26/18 19:00 07:00 Intake Total 865.0 ml 1365.0 ml Output Total 400 ml 1000 ml Balance 465.0 ml 365.0 ml IV Total 865.0 ml 1365.0 ml Output Urine Total 400 ml 1000 ml Objective WDWN NAD reduced LOC reduced breath sounds bilaterally with some rhonchi [id number] without MRG NABS nontender no HSM; GT no CC; mild edema; reduced ROM weak and nonverbal Current Medications Medications (Trade) Dose Ordered Sig/Iram Route PRN Reason Start Time Stop Time Status Last Admin Dose Admin Acetaminophen (Tylenol) 650 mg Q4H PRN ORAL Fever/Headache/Mild Pain 02/20/18 21:15 03/22/18 21:14 Acetylcysteine (Mucomyst) 100 mg TIDRT HHN 02/21/18 13:00 03/23/18 12:59 02/26/18 12:59 Albuterol/ Ipratropium (Albuterol/ Ipratropium) 3 ml Q4H PRN HHN Shortness of Breath 02/26/18 14:00 03/03/18 13:59 Albuterol/ Ipratropium (Albuterol/ Ipratropium) 3 ml TIDRT N 02/26/18 19:00 03/03/18 06:59 Amlodipine Besylate (Norvasc) 10 mg DAILY ORAL 02/21/18 09:00 03/23/18 08:59 02/24/18 09:57 Aspirin (ASA) 81 mg DAILY ORAL 02/21/18 09:00 03/23/18 08:59 02/24/18 09:56 Atorvastatin Calcium (Lipitor) 40 mg BEDTIME ORAL 02/21/18 21:00 03/23/18 20:59 02/23/18 20:58 Bisacodyl (Dulcolax) 10 mg DAILY PRN RECTAL CONSTIPATION 02/20/18 21:15 03/22/18 21:14 Dextrose/Sodium Chloride 1,000 ml @ 100 mls/hr Q10H IV 02/25/18 12:00 03/27/18 11:59 02/26/18 08:12 Docusate Sodium (Colace) 100 mg DAILY GT 02/26/18 09:00 03/28/18 08:59 Doxazosin Mesylate (Cardura) 1 mg DAILY ORAL 02/21/18 09:00 03/23/18 08:59 02/24/18 09:55 Famotidine (Pepcid) 20 mg DAILY ORAL 02/21/18 09:00 03/23/18 08:59 02/24/18 09:55 Fluconazole (Diflucan) 100 mg DAILY ORAL 02/25/18 09:00 03/04/18 08:59 Heparin Sodium (Porcine) (Heparin 5000 units/ml) 5,000 units EVERY 12 HOURS SUBQ 02/22/18 09:00 03/24/18 08:59 02/26/18 09:10 Magnesium Hydroxide (Mom) 30 ml DAILY ORAL 02/21/18 09:00 03/23/18 08:59 02/24/18 09:55 Midodrine (Pro-Amatine) 2.5 mg THREE TIMES A DAY ORAL 02/21/18 09:00 03/23/18 08:59 02/24/18 18:27 Multivitamins (Multivitamins W/ Minerals 15ml Liquid) 15 ml DAILY GT 02/26/18 09:00 03/28/18 08:59 Piperacillin Sod/ Tazobactam Sod 3.375 gm/Sodium Chloride 110 ml @ 27.5 mls/hr EVERY 8 HOURS IVPB 02/26/18 14:00 03/04/18 01:59 02/26/18 13:21 Sennosides (Senokot) 2 tab BID PRN GT Constipation 02/20/18 21:15 03/22/18 21:14 Sodium Phosphate (Fleet's Sodium Phosl Enema) 133 ml Q2D PRN RECTAL CONSTIPATION 02/20/18 21:15 03/22/18 21:14 Tamsulosin HCl (Flomax) 0.4 mg BEDTIME ORAL 02/21/18 21:00 03/23/18 20:59 02/23/18 20:57 Nakul Cisse MD Feb 26, 2018 17:14
[2018-02-26] MEDS ORDERED: Albuterol/Ipratropium 3ml neb HHN SCH (18:00)
[2018-02-26 20:00] VITALS: BP 145/72
--- NOTE | 2018-02-26 20:29 | General Progress Note ---
Assessment/Plan Assessment/Plan Assessment - dysfunctional GT - replaced - progressive microcytic anemia, suspect blood loss - abnormal LFT, CT and hepatitis serologies negative 12/20 - OBS - FTT / poor prognosis Recommendations - TF - check Iron panel - Check OB - check abd ultrasound - will d/w family Thank you No Amaya Subjective Allergies: Coded Allergies: No Known Allergies (Unverified , 01/27/17) Objective Last 24 Hour Vital Signs Date Time Temp Pulse Resp B/P (MAP) Pulse Ox O2 Delivery O2 Flow Rate FiO2 02/26/18 18:59 97 18 99 Room Air 21 02/26/18 18:44 89 18 97 Room Air 21 02/26/18 16:00 Room Air 02/26/18 16:00 97.8 92 20 136/70 (92) 97 97.8 02/26/18 15:25 95 02/26/18 13:08 90 16 98 Room Air 21 02/26/18 12:59 78 16 94 Room Air 21 02/26/18 12:00 81 02/26/18 12:00 97.0 91 18 138/76 (96) 98 97.0 02/26/18 12:00 Room Air 02/26/18 09:00 85 120/64 02/26/18 08:00 Room Air 02/26/18 08:00 97.0 91 18 120/64 (82) 98 97.0 02/26/18 08:00 85 02/26/18 07:25 83 16 95 Room Air 21 02/26/18 07:24 83 16 98 Room Air 21 02/26/18 04:00 97.2 85 18 119/60 (79) 96 97.2 02/26/18 04:00 74 02/26/18 04:00 Room Air 02/26/18 00:00 Room Air 02/26/18 00:00 97.9 97 18 141/75 (97) 100 97.9 02/26/18 00:00 80 02/25/18 23:09 Room Air 02/25/18 23:09 Room Air 02/25/18 22:58 70 16 Room Air 21 Intake and Output 02/25/18 02/26/18 19:00 07:00 Intake Total 865.0 ml 1365.0 ml Output Total 400 ml 1000 ml Balance 465.0 ml 365.0 ml IV Total 865.0 ml 1365.0 ml Output Urine Total 400 ml 1000 ml Height (Feet): 5 Height (Inches): 10.00 Weight (Pounds): 131 Oli Amaya MD Feb 26, 2018 20:29
[2018-02-26] MEDS: Tamsulosin 0.4mg cap ORAL SCH (21:40)
[2018-02-26] MEDS: Atorvastatin 20mg tab ORAL SCH (21:40)
[2018-02-27] VITALS (7 sets, daily range): BP systolic 101–157; BP diastolic 58–81
--- NOTE | 2018-02-27 00:15 | Progress Note ---
DATE: 02/25/2018 CARDIOLOGY PROGRESS NOTE SUBJECTIVE: The patient pulled out his G-tube yesterday. Catheter was placed to maintain patency of the entry site. The patient remains off feedings. IV fluids have been ordered. OBJECTIVE: VITAL SIGNS: Blood pressure 119/57, pulse 73, respirations 20, no fevers, and oxygen saturation 96% on room air. LUNGS: Coarse breath sounds. No wheezing. CARDIAC: Regular rhythm rate. Normal S1 and S2 with a fourth heart sound. ABDOMEN: Soft and nontender. GENITOURINARY: G-tube site with Manzo catheter in place. EXTREMITIES: No edema. LABORATORY AND DIAGNOSTIC DATA: Labs reviewed. IMPRESSION: 1. Dysphagia. 2. G-tube dislodgement. 3. Recovering pneumonia due to aspiration. 4. Resolving hypoxia. 5. Chronic diastolic congestive heart failure. 6. Cerebrovascular disease with dementia and debility. 7. Severe protein-calorie malnutrition. PLAN: GI consult for G-tube replacement. NPO for now. All medications to be given by IV route as needed. Continue respiratory hygiene and aspiration precautions. Jones Arauz M.D. DR: LUDA JOB#: [id number] CC:
--- NOTE | 2018-02-27 00:15 | Progress Note ---
DATE: 02/26/2018 CARDIOLOGY AND INTERNAL MEDICINE PROGRESS NOTE SUBJECTIVE: The patient's G-tube was replaced today by Dr. Amaya without complications. Feedings are being restarted. IV fluids will be discontinued at that time. OBJECTIVE: VITAL SIGNS: Blood pressure 136/70, pulse 92, respirations 20, and afebrile. Monitored sinus rhythm, sinus and rare atrial ectopy. LUNGS: Coarse breath sounds. Scattered rhonchi. HEART: Regular rhythm and rate. Normal S1 and S2 with a fourth heart sound. ABDOMEN: Soft. G-tube intact. EXTREMITIES: No edema. NEUROLOGIC: Moderate cognitive impairment noted. LABORATORY AND DIAGNOSTIC DATA: Labs reviewed from yesterday. IMPRESSION: 1. Microcytic anemia. 2. Possible GI blood loss. 3. Dysphagia status post G-tube replacement. 4. Aspiration pneumonia, resolving. 5. Hypoxia, recovering. 6. Chronic diastolic congestive heart failure, compensated. 7. Severe protein-calorie malnutrition. PLAN: 1. Iron panel. 2. Protein supplements. 3. Discontinue IV fluids. G-tube feeding to be resumed. 4. Antibiotics. 5. Respiratory hygiene. 6. Bronchodilators. 7. Aspiration precautions. 8. Discharge planning. 9. Monitor hemoglobin and transfuse if further drops noted below 7 g. Jones Arauz M.D. DR: LUDA JOB#: [id number] CC:
[2018-02-27 04:17] LABS: BASOPHILS % (AUTO) 0.8 % (0.0-2.0); EOSINOPHILS % (AUTO) 0.2 % (0.0-3.0); HEMATOCRIT 34.8 % (42.0-52.0); HEMOGLOBIN 10.6 G/DL (14.2-18.0); LYMPHOCYTES % (AUTO) 11.4 % (20.0-45.0); MEAN CORPUSCULAR VOLUME 77 FL (80-99); NEUTROPHILS % (AUTO) 69.6 % (45.0-75.0); PLATELET COUNT 237 K/UL (150-450); RED BLOOD COUNT 4.52 M/UL (4.70-6.10); RED CELL DISTRIBUTION WIDTH 15.1 % (11.6-14.8); WHITE BLOOD COUNT 3.6 K/UL (4.8-10.8)
[2018-02-27 04:32] LABS: % IRON SATURATION 10 % (15-50); IRON 21 ug/dL (50-175); TOTAL IRON BINDING CAPACITY 209 ug/dL (250-450)
[2018-02-27 04:42] LABS: ALANINE AMINOTRANSFERASE 35 U/L (12-78); ALBUMIN 2.4 G/DL (3.4-5.0); ALBUMIN/GLOBULIN RATIO 0.5 (1.0-2.7); ALKALINE PHOSPHATASE 263 U/L (46-116); ANION GAP 9 mmol/L (5-15); ASPARTATE AMINO TRANSFERASE 65 U/L (15-37); BILIRUBIN,TOTAL 0.7 MG/DL (0.2-1.0); BLOOD UREA NITROGEN 13 mg/dL (7-18); CALCIUM 9.5 MG/DL (8.5-10.1); CARBON DIOXIDE 29 MMOL/L (21-32); CHLORIDE 106 MMOL/L (98-107); CREATININE 0.8 MG/DL (0.55-1.30); FERRITIN 157 NG/ML (8-388); POTASSIUM 3.2 MMOL/L (3.5-5.1); SODIUM 144 MMOL/L (136-145)
--- NOTE | 2018-02-27 06:00 | Consultation ---
DATE OF CONSULTATION: 02/26/2018 NOTE: POOR AUDIO GASTROENTEROLOGY CONSULTATION CONSULTING PHYSICIAN: Oli Amaya M.D. CHIEF COMPLAINT: I was asked to see this patient by Dr. Jones Arauz and Dr. Jarrod Vásquez for evaluation of dysfunctional gastrostomy tube, abnormal liver tests, and anemia. HISTORY OF PRESENT ILLNESS: The patient is an unfortunate 72-year-old [place] male with dementia and declining health, who is admitted to the hospital due to respiratory insufficiency. The patient was seen a few months ago in December with some nausea, vomiting, and abnormal liver tests. At that time, hepatitis serologies were done, which were negative, and CT scan of the abdomen and pelvis showed surgically absent gallbladder and some pneumobilia consistent with possible previous cholecystectomy. The patient did not have microcytosis at that time. On this admission, he comes in with a dysfunctional gastrostomy tube, which was replaced. However, his CBC shows significantly different severe microcytosis as well as abnormal liver tests. The patient himself is confused and unable to provide any history and most of the information is only available from the chart. PAST MEDICAL HISTORY: History of dementia, hypercholesterolemia, hypertension, prostatic hypertrophy, dysphagia, status post gastrostomy tube placement, hyperlipidemia, encephalopathy, history of sepsis, urinary tract infection, pneumonia, respiratory insufficiency, status post cholecystectomy, abnormal liver tests of unclear etiology, and microcytic anemia of unclear etiology. MEDICATIONS: See the chart list for details. FAMILY HISTORY: Noncontributory. SOCIAL HISTORY: The patient is . He has several daughters who look after his affairs. He has had no history of smoking or drinking. REVIEW OF SYSTEMS: Otherwise negative. PHYSICAL EXAMINATION: GENERAL: This is a debilitated, thin [place] man, seen in his room, the nurse at bedside. HEENT: Normocephalic and atraumatic. Dentition is poor. NECK: Supple. CHEST: Revealed coarse breath sounds and scattered rhonchi. CARDIOVASCULAR: Revealed a regular rate. ABDOMEN: Soft, scaphoid. The gastrostomy tube was replaced with a Manzo catheter by the nursing staff yesterday. It was removed and replaced with a 20-Filipino gastrostomy catheter and position was verified by aspiration. EXTREMITIES: Revealed some contracture deformities. NEUROLOGIC: Notable for encephalopathy and dementia. LABORATORY DATA AND DIAGNOSTIC DATA: Laboratory data and imaging studies were noted. ASSESSMENT: This patient's gastrostomy tube has been replaced and can be used for feeding. His progressive microcytosis is concerning for ongoing blood loss and the primary source would be the gastrointestinal tract. However, he is a poor candidate for endoscopy and colonoscopy, given his dementia and poor health. This will be discussed with the patient's family. In the meantime, the patient's abnormal liver tests have also persisted and perhaps will require further workup. An ultrasound can be done to see if there are any common bile duct stones. If negative, then a consideration can be made for MRCP, but he may be a difficult candidate to keep motionless for that examination. RECOMMENDATIONS: 1. Tube feeding per gastrostomy tube. 2. Gastrostomy tube care. 3. Check iron panel. 4. Check stool occult blood. 5. Check abdominal ultrasound. 6. Discussion with family. Thank you for asking me to participate in the care of this patient. Oil Amaya M.D. DR: DIONNA JOB#: [id number] CC: CHRISTEN
[2018-02-27] MEDS: Piperacillin/Tazobactam 3.375 GM in NS 110 ML IVPB SCH ×3 (06:09→21:02)
[2018-02-27] MEDS: Albuterol/Ipratropium 3ml neb HHN SCH ×3 (08:00→19:57)
[2018-02-27] MEDS: Doxazosin 1mg Tab ORAL SCH (08:35)
[2018-02-27] MEDS: Multivitamins W/Minerals 15 ML UDC GT SCH (08:35)
[2018-02-27] MEDS: Aspirin Baby 81mg ORAL SCH (08:35)
[2018-02-27] MEDS: Fluconazole 100mg tab ORAL SCH (08:36)
[2018-02-27] MEDS: Milk of Magnesia 30ml Ud ORAL SCH (08:36)
[2018-02-27] MEDS: Docusate 100mg/10ml Liq GT SCH (08:36)
[2018-02-27] MEDS: Heparin 5000 units/ml inj SUBQ SCH ×2 (08:37→21:06)
--- NOTE | 2018-02-27 11:55 | Diagnostic Imaging Report ---
Indication: Cough Technique: One view of the chest Comparison: 02/24/2018 Findings: Diffuse interstitial disease and scattered calcified nodules are again demonstrated and unchanged. The heart size is normal. Patency demonstrated right lateral basilar hazy opacity and costophrenic angle blunting has resolved, likely reflecting decreased or resolved pleural fluid. Normal heart size Impression: Suspect decreasing pleural fluid on the right, over 3 days Stable diffuse micronodular interstitial disease
--- NOTE | 2018-02-27 12:19 | Diagnostic Imaging Report ---
Indication: Abnormal liver function tests Technique: Colon-scale and duplex images of the upper abdomen were obtained Comparison: 02/13/2018 Findings: Gallbladder is surgically absent. Common bile duct measures 7 mm in diameter. No intrahepatic biliary ductal dilatation. Liver demonstrates normal echogenicity, no focal abnormality. It does demonstrate surface micronodular 90, also previously described Portal vein and hepatic veins are patent. Pancreas is unremarkable. Spleen is enlarged, measuring 15.6 cm long axis dimension. This is also previously reported Left kidney measures 11.8 cm in length. Right kidney measures 10.6 cm length. Both kidneys demonstrate normal echogenicity. There is no hydronephrosis. There are multiple cysts in the left kidney . Abdominal aorta is partially obscured by bowel gas, visualized portions are non-aneurysmal . There is trace ascites. There is a gastrostomy tube in place. Impression: Surgically absent gallbladder. Mildly ectatic extrahepatic bile ducts probably related to age and postcholecystectomy state. Correlate with liver function tests, consider MRCP if clinically indicated Trace ascites Hepatic surface nodularity, previously reported, consistent with cirrhosis Splenomegaly, also previously reported Incidental finding left renal cysts
--- NOTE | 2018-02-27 12:39 | General Progress Note ---
Assessment/Plan Assessment/Plan Assessment - dysfunctional GT - replaced - progressive Iron deficiency anemia - abnormal LFT, CT and hepatitis serologies negative 12/20 - OBS - FTT / poor prognosis Recommendations - TF - Elevate HOB - Check OB - check abd ultrasound - Family to decide on level of care and w/u Subjective Allergies: Coded Allergies: No Known Allergies (Unverified , 01/27/17) Subjective Above noted d/w DTR at bedside and with over phone advised re finding of Iron deficiency anemia family will discuss and give me decision re w/u Objective Last 24 Hour Vital Signs Date Time Temp Pulse Resp B/P (MAP) Pulse Ox O2 Delivery O2 Flow Rate FiO2 02/27/18 12:00 97.3 82 20 106/58 (74) 100 97.3 02/27/18 08:35 82 128/75 02/27/18 08:08 82 18 100 Room Air 21 02/27/18 08:01 85 18 100 Room Air 21 02/27/18 08:00 97.7 85 20 128/75 (92) 98 97.7 02/27/18 08:00 Room Air 02/27/18 08:00 81 02/27/18 06:00 97.9 91 18 157/80 (105) 97 97.9 02/27/18 04:00 89 02/27/18 04:00 97.9 91 18 157/80 (105) 97 97.9 02/27/18 03:55 Room Air 02/27/18 03:55 95 02/27/18 00:00 Room Air 02/27/18 00:00 98.1 104 20 150/81 (104) 100 98.1 02/27/18 00:00 94 02/26/18 20:00 98.5 104 20 145/72 (96) 100 98.5 02/26/18 20:00 Room Air 02/26/18 20:00 99 02/26/18 18:59 97 18 99 Room Air 21 02/26/18 18:44 89 18 97 Room Air 21 02/26/18 16:00 Room Air 02/26/18 16:00 97.8 92 20 136/70 (92) 97 97.8 02/26/18 15:25 95 02/26/18 13:08 90 16 98 Room Air 21 02/26/18 12:59 78 16 94 Room Air 21 Intake and Output 02/26/18 02/27/18 19:00 07:00 Intake Total 657.5 ml 387.5 ml Output Total 600 ml 200 ml Balance 57.5 ml 187.5 ml Intake Free Water 150 ml IV Total 637.5 ml 137.5 ml Tube Feeding 20 ml 100 ml Output Urine Total 600 ml 200 ml Laboratory Tests 02/27/18 03:39: White Blood Count 3.6L, Red Blood Count 4.52L, Hemoglobin 10.6L, Hematocrit 34.8L, Mean Corpuscular Volume 77L, Mean Corpuscular Hemoglobin 23.5L, Mean Corpuscular Hemoglobin Concent 30.5L, Red Cell Distribution Width 15.1H, Platelet Count 237, Mean Platelet Volume 5.0L, Neutrophils (%) (Auto) 69.6, Lymphocytes (%) (Auto) 11.4L, Monocytes (%) (Auto) 18.0H, Eosinophils (%) (Auto ) 0.2, Basophils (%) (Auto) 0.8, Sodium Level 144, Potassium Level 3.2L, Chloride Level 106, Carbon Dioxide Level 29, Anion Gap 9, Blood Urea Nitrogen 13 , Creatinine 0.8, Estimat Glomerular Filtration Rate , Glucose Level 83, Calcium Level 9.5, Magnesium Level 1.7L, Iron Level 21L, Total Iron Binding Capacity 209L, Percent Iron Saturation 10L, Unsaturated Iron Binding 188, Ferritin 157, Total Bilirubin 0.7, Aspartate Amino Transf (AST/SGOT) 65H, Alanine Aminotransferase (ALT/SGPT) 35, Alkaline Phosphatase 263H, Pro-B-Type Natriuretic Peptide 304H, Total Protein 7.5, Albumin 2.4L, Globulin 5.1, Albumin /Globulin Ratio 0.5L Height (Feet): 5 Height (Inches): 10.00 Weight (Pounds): 131 Objective WDWN NCAT supple CTA RRR abd soft , (+) GT contracted OBS Oli Amaya MD Feb 27, 2018 12:39
--- NOTE | 2018-02-27 13:57 | Infectious Diseases Prog Note ---
Assessment/Plan Assessment/Plan A: Pneumonia VRE colonization Dementia BPH Seizure disorder Hypoxemia Anemia P; Continue Zosyn until tomorrow Continue Fluconazole Subjective ROS Limited/Unobtainable: Yes Allergies: Coded Allergies: No Known Allergies (Unverified , 01/27/17) Objective Vital Signs Last 24 Hour Vital Signs Date Time Temp Pulse Resp B/P (MAP) Pulse Ox O2 Delivery O2 Flow Rate FiO2 02/27/18 12:39 72 18 100 Room Air 21 02/27/18 12:26 77 18 100 Room Air 21 02/27/18 12:00 97.3 82 20 106/58 (74) 100 97.3 02/27/18 12:00 79 02/27/18 08:35 82 128/75 02/27/18 08:08 82 18 100 Room Air 21 02/27/18 08:01 85 18 100 Room Air 21 02/27/18 08:00 97.7 85 20 128/75 (92) 98 97.7 02/27/18 08:00 Room Air 02/27/18 08:00 81 02/27/18 06:00 97.9 91 18 157/80 (105) 97 97.9 02/27/18 04:00 89 02/27/18 04:00 97.9 91 18 157/80 (105) 97 97.9 02/27/18 03:55 Room Air 02/27/18 03:55 95 02/27/18 00:00 Room Air 02/27/18 00:00 98.1 104 20 150/81 (104) 100 98.1 02/27/18 00:00 94 02/26/18 20:00 98.5 104 20 145/72 (96) 100 98.5 02/26/18 20:00 Room Air 02/26/18 20:00 99 02/26/18 18:59 97 18 99 Room Air 21 02/26/18 18:44 89 18 97 Room Air 21 02/26/18 16:00 Room Air 02/26/18 16:00 97.8 92 20 136/70 (92) 97 97.8 02/26/18 15:25 95 Height (Feet): 5 Height (Inches): 10.00 Weight (Pounds): 131 General Appearance: no acute distress HEENT: mucous membranes moist Respiratory/Chest: lungs clear Cardiovascular: normal rate Abdomen: soft, non tender, other - GT feeding Extremities: no edema Neurologic/Psychiatric: alert Laboratory Tests Test 02/27/18 03:39 White Blood Count 3.6 K/UL (4.8-10.8) L Red Blood Count 4.52 M/UL (4.70-6.10) L Hemoglobin 10.6 G/DL (14.2-18.0) L Hematocrit 34.8 % (42.0-52.0) L Mean Corpuscular Volume 77 FL (80-99) L Mean Corpuscular Hemoglobin 23.5 PG (27.0-31.0) L Mean Corpuscular Hemoglobin Concent 30.5 G/DL (32.0-36.0) L Red Cell Distribution Width 15.1 % (11.6-14.8) H Platelet Count 237 K/UL (150-450) Mean Platelet Volume 5.0 FL (6.5-10.1) L Neutrophils (%) (Auto) 69.6 % (45.0-75.0) Lymphocytes (%) (Auto) 11.4 % (20.0-45.0) L Monocytes (%) (Auto) 18.0 % (1.0-10.0) H Eosinophils (%) (Auto) 0.2 % (0.0-3.0) Basophils (%) (Auto) 0.8 % (0.0-2.0) Sodium Level 144 MMOL/L (136-145) Potassium Level 3.2 MMOL/L (3.5-5.1) L Chloride Level 106 MMOL/L (98-107) Carbon Dioxide Level 29 MMOL/L (21-32) Anion Gap 9 mmol/L (5-15) Blood Urea Nitrogen 13 mg/dL (7-18) Creatinine 0.8 MG/DL (0.55-1.30) Estimat Glomerular Filtration Rate mL/min (>60) Glucose Level 83 MG/DL (74-106) Calcium Level 9.5 MG/DL (8.5-10.1) Magnesium Level 1.7 MG/DL (1.8-2.4) L Iron Level 21 ug/dL (50-175) L Total Iron Binding Capacity 209 ug/dL (250-450) L Percent Iron Saturation 10 % (15-50) L Unsaturated Iron Binding 188 ug/dL (112-346) Ferritin 157 NG/ML (8-388) Total Bilirubin 0.7 MG/DL (0.2-1.0) Aspartate Amino Transf (AST/SGOT) 65 U/L (15-37) H Alanine Aminotransferase (ALT/SGPT) 35 U/L (12-78) Alkaline Phosphatase 263 U/L (46-116) H Pro-B-Type Natriuretic Peptide 304 pg/mL (0-125) H Total Protein 7.5 G/DL (6.4-8.2) Albumin 2.4 G/DL (3.4-5.0) L Globulin 5.1 g/dL Albumin/Globulin Ratio 0.5 (1.0-2.7) L Current Medications Medications (Trade) Dose Ordered Sig/Iram Route PRN Reason Start Time Stop Time Status Last Admin Dose Admin Acetaminophen (Tylenol) 650 mg Q4H PRN ORAL Fever/Headache/Mild Pain 02/27/18 13:15 03/22/18 21:14 Acetylcysteine (Mucomyst) 100 mg TIDRT HHN 02/27/18 13:00 03/23/18 12:59 02/27/18 12:26 Albuterol/ Ipratropium (Albuterol/ Ipratropium) 3 ml Q4H PRN HHN Shortness of Breath 02/27/18 14:00 03/03/18 13:59 Albuterol/ Ipratropium (Albuterol/ Ipratropium) 3 ml TIDRT HHN 02/27/18 13:00 03/03/18 06:59 02/27/18 12:26 Amlodipine Besylate (Norvasc) 10 mg DAILY ORAL 02/28/18 09:00 03/23/18 08:59 Aspirin (ASA) 81 mg DAILY ORAL 02/28/18 09:00 03/23/18 08:59 Atorvastatin Calcium (Lipitor) 40 mg BEDTIME ORAL 02/27/18 21:00 03/23/18 20:59 Bisacodyl (Dulcolax) 10 mg DAILY PRN RECTAL CONSTIPATION 02/28/18 09:00 03/22/18 21:14 Docusate Sodium (Colace) 100 mg DAILY GT 02/28/18 09:00 03/28/18 08:59 Doxazosin Mesylate (Cardura) 1 mg DAILY ORAL 02/28/18 09:00 03/23/18 08:59 Famotidine (Pepcid) 20 mg DAILY ORAL 02/28/18 09:00 03/23/18 08:59 Fluconazole (Diflucan) 100 mg DAILY ORAL 02/28/18 09:00 02/28/18 23:59 Heparin Sodium (Porcine) (Heparin 5000 units/ml) 5,000 units EVERY 12 HOURS SUBQ 02/27/18 21:00 03/24/18 08:59 Magnesium Hydroxide (Mom) 30 ml DAILY ORAL 02/28/18 09:00 03/23/18 08:59 Midodrine (Pro-Amatine) 2.5 mg THREE TIMES A DAY ORAL 02/27/18 13:00 03/23/18 08:59 02/27/18 12:43 Multivitamins (Multivitamins W/ Minerals 15ml Liquid) 15 ml DAILY GT 02/28/18 09:00 03/28/18 08:59 Piperacillin Sod/ Tazobactam Sod 3.375 gm/Sodium Chloride 110 ml @ 27.5 mls/hr EVERY 8 HOURS IVPB 02/27/18 14:00 03/02/18 23:59 02/27/18 13:51 Sennosides (Senokot) 2 tab BID PRN GT Constipation 02/27/18 18:00 03/22/18 21:14 Sodium Phosphate (Fleet's Sodium Phosl Enema) 133 ml Q2D PRN RECTAL CONSTIPATION 02/28/18 21:15 03/22/18 21:14 Tamsulosin HCl (Flomax) 0.4 mg BEDTIME ORAL 02/27/18 21:00 03/23/18 20:59 Rahul Shen MD Feb 27, 2018 13:57
[2018-02-27] MEDS ORDERED: Albuterol/Ipratropium 3ml neb HHN PRN (14:00)
[2018-02-27] MEDS ORDERED: Sennosides 8.6mg GT PRN (18:00)
[2018-02-27] MEDS ORDERED: Atorvastatin 20mg tab ORAL SCH (21:00)
[2018-02-27] MEDS ORDERED: Tamsulosin 0.4mg cap ORAL SCH (21:00)
--- NOTE | 2018-02-27 21:30 | Pulmonology Progress Note ---
Assessment/Plan Assessment/Plan Assessment/Plan respiratory insufficiency - currently stable off O2 respiratory alkalosis hypoxemia abnormal CXR chronic interstitial change possible pneumonitis possible aspiration pneumonia GT Low magnesium and K - both supplemented PLAN monitor for change respiratory care oxygen aspiration precautions snf meds noted DVT proph head of bed elevated and monitor monitor closely for deterioration and change ABG PRN monitor imaging and change impression, plan, and exam edited and reviewed in detail care discussed with RN Subjective ROS Limited/Unobtainable: Yes Allergies: Coded Allergies: No Known Allergies (Unverified , 01/27/17) Subjective same on FM oxygen mask reduced LOC Objective Last 24 Hour Vital Signs Date Time Temp Pulse Resp B/P (MAP) Pulse Ox O2 Delivery O2 Flow Rate FiO2 02/26/18 16:00 Room Air 02/26/18 16:00 97.8 92 20 136/70 (92) 97 97.8 02/26/18 15:25 95 02/26/18 13:08 90 16 98 Room Air 21 02/26/18 12:59 78 16 94 Room Air 21 02/26/18 12:00 81 02/26/18 12:00 97.0 91 18 138/76 (96) 98 97.0 02/26/18 12:00 Room Air 02/26/18 09:00 85 120/64 02/26/18 08:00 Room Air 02/26/18 08:00 97.0 91 18 120/64 (82) 98 97.0 02/26/18 08:00 85 02/26/18 07:25 83 16 95 Room Air 21 02/26/18 07:24 83 16 98 Room Air 21 02/26/18 04:00 97.2 85 18 119/60 (79) 96 97.2 02/26/18 04:00 74 02/26/18 04:00 Room Air 02/26/18 00:00 Room Air 02/26/18 00:00 97.9 97 18 141/75 (97) 100 97.9 02/26/18 00:00 80 02/25/18 23:09 Room Air 02/25/18 23:09 Room Air 02/25/18 22:58 70 16 Room Air 21 02/25/18 20:00 80 16 95 Room Air 21 02/25/18 20:00 88 16 98 Room Air 21 02/25/18 20:00 Room Air 02/25/18 20:00 79 02/25/18 20:00 98.1 80 20 117/65 (82) 99 98.1 Intake and Output 02/25/18 02/26/18 19:00 07:00 Intake Total 865.0 ml 1365.0 ml Output Total 400 ml 1000 ml Balance 465.0 ml 365.0 ml IV Total 865.0 ml 1365.0 ml Output Urine Total 400 ml 1000 ml Objective WDWN NAD reduced LOC reduced breath sounds bilaterally with some rhonchi [id number] without MRG NABS nontender no HSM; GT no CC; mild edema; reduced ROM weak and nonverbal Current Medications Medications (Trade) Dose Ordered Sig/Iram Route PRN Reason Start Time Stop Time Status Last Admin Dose Admin Acetaminophen (Tylenol) 650 mg Q4H PRN ORAL Fever/Headache/Mild Pain 02/20/18 21:15 03/22/18 21:14 Acetylcysteine (Mucomyst) 100 mg TIDRT HHN 02/21/18 13:00 03/23/18 12:59 02/26/18 12:59 Albuterol/ Ipratropium (Albuterol/ Ipratropium) 3 ml Q4H PRN HHN Shortness of Breath 02/26/18 14:00 03/03/18 13:59 Albuterol/ Ipratropium (Albuterol/ Ipratropium) 3 ml TIDRT HHN 02/26/18 19:00 03/03/18 06:59 Amlodipine Besylate (Norvasc) 10 mg DAILY ORAL 02/21/18 09:00 03/23/18 08:59 02/24/18 09:57 Aspirin (ASA) 81 mg DAILY ORAL 02/21/18 09:00 03/23/18 08:59 02/24/18 09:56 Atorvastatin Calcium (Lipitor) 40 mg BEDTIME ORAL 02/21/18 21:00 03/23/18 20:59 02/23/18 20:58 Bisacodyl (Dulcolax) 10 mg DAILY PRN RECTAL CONSTIPATION 02/20/18 21:15 03/22/18 21:14 Dextrose/Sodium Chloride 1,000 ml @ 100 mls/hr Q10H IV 02/25/18 12:00 03/27/18 11:59 02/26/18 08:12 Docusate Sodium (Colace) 100 mg DAILY GT 02/26/18 09:00 03/28/18 08:59 Doxazosin Mesylate (Cardura) 1 mg DAILY ORAL 02/21/18 09:00 03/23/18 08:59 02/24/18 09:55 Famotidine (Pepcid) 20 mg DAILY ORAL 02/21/18 09:00 03/23/18 08:59 02/24/18 09:55 Fluconazole (Diflucan) 100 mg DAILY ORAL 02/25/18 09:00 03/04/18 08:59 Heparin Sodium (Porcine) (Heparin 5000 units/ml) 5,000 units EVERY 12 HOURS SUBQ 02/22/18 09:00 03/24/18 08:59 02/26/18 09:10 Magnesium Hydroxide (Mom) 30 ml DAILY ORAL 02/21/18 09:00 03/23/18 08:59 02/24/18 09:55 Midodrine (Pro-Amatine) 2.5 mg THREE TIMES A DAY ORAL 02/21/18 09:00 03/23/18 08:59 02/24/18 18:27 Multivitamins (Multivitamins W/ Minerals 15ml Liquid) 15 ml DAILY GT 02/26/18 09:00 03/28/18 08:59 Piperacillin Sod/ Tazobactam Sod 3.375 gm/Sodium Chloride 110 ml @ 27.5 mls/hr EVERY 8 HOURS IVPB 02/26/18 14:00 03/04/18 01:59 02/26/18 13:21 Sennosides (Senokot) 2 tab BID PRN GT Constipation 02/20/18 21:15 03/22/18 21:14 Sodium Phosphate (Fleet's Sodium Phosl Enema) 133 ml Q2D PRN RECTAL CONSTIPATION 02/20/18 21:15 03/22/18 21:14 Tamsulosin HCl (Flomax) 0.4 mg BEDTIME ORAL 02/21/18 21:00 03/23/18 20:59 02/23/18 20:57 Subjective Allergies: Coded Allergies: No Known Allergies (Unverified , 01/27/17) Objective Last 24 Hour Vital Signs Date Time Temp Pulse Resp B/P (MAP) Pulse Ox O2 Delivery O2 Flow Rate FiO2 02/27/18 20:12 75 18 99 Room Air 21 02/27/18 19:57 86 18 97 Room Air 21 02/27/18 16:00 97.5 87 20 108/59 (75) 100 97.5 02/27/18 16:00 85 02/27/18 12:39 72 18 100 Room Air 21 02/27/18 12:26 77 18 100 Room Air 21 02/27/18 12:00 97.3 82 20 106/58 (74) 100 97.3 02/27/18 12:00 79 02/27/18 08:35 82 128/75 02/27/18 08:08 82 18 100 Room Air 21 02/27/18 08:01 85 18 100 Room Air 21 02/27/18 08:00 97.7 85 20 128/75 (92) 98 97.7 02/27/18 08:00 Room Air 02/27/18 08:00 81 02/27/18 06:00 97.9 91 18 157/80 (105) 97 97.9 02/27/18 04:00 89 02/27/18 04:00 97.9 91 18 157/80 (105) 97 97.9 02/27/18 03:55 Room Air 02/27/18 03:55 95 02/27/18 00:00 Room Air 02/27/18 00:00 98.1 104 20 150/81 (104) 100 98.1 02/27/18 00:00 94 Intake and Output 02/26/18 02/27/18 19:00 07:00 Intake Total 657.5 ml 387.5 ml Output Total 600 ml 200 ml Balance 57.5 ml 187.5 ml Intake Free Water 150 ml IV Total 637.5 ml 137.5 ml Tube Feeding 20 ml 100 ml Output Urine Total 600 ml 200 ml Laboratory Tests 02/27/18 03:39: White Blood Count 3.6L, Red Blood Count 4.52L, Hemoglobin 10.6L, Hematocrit 34.8L, Mean Corpuscular Volume 77L, Mean Corpuscular Hemoglobin 23.5L, Mean Corpuscular Hemoglobin Concent 30.5L, Red Cell Distribution Width 15.1H, Platelet Count 237, Mean Platelet Volume 5.0L, Neutrophils (%) (Auto) 69.6, Lymphocytes (%) (Auto) 11.4L, Monocytes (%) (Auto) 18.0H, Eosinophils (%) (Auto ) 0.2, Basophils (%) (Auto) 0.8, Sodium Level 144, Potassium Level 3.2L, Chloride Level 106, Carbon Dioxide Level 29, Anion Gap 9, Blood Urea Nitrogen 13 , Creatinine 0.8, Estimat Glomerular Filtration Rate , Glucose Level 83, Calcium Level 9.5, Magnesium Level 1.7L, Iron Level 21L, Total Iron Binding Capacity 209L, Percent Iron Saturation 10L, Unsaturated Iron Binding 188, Ferritin 157, Total Bilirubin 0.7, Aspartate Amino Transf (AST/SGOT) 65H, Alanine Aminotransferase (ALT/SGPT) 35, Alkaline Phosphatase 263H, Pro-B-Type Natriuretic Peptide 304H, Total Protein 7.5, Albumin 2.4L, Globulin 5.1, Albumin /Globulin Ratio 0.5L Current Medications Medications (Trade) Dose Ordered Sig/Iram Route PRN Reason Start Time Stop Time Status Last Admin Dose Admin Acetaminophen (Tylenol) 650 mg Q4H PRN ORAL Fever/Headache/Mild Pain 02/27/18 13:15 03/22/18 21:14 Acetylcysteine (Mucomyst) 100 mg TIDRT N 02/27/18 13:00 03/23/18 12:59 02/27/18 19:57 Albuterol/ Ipratropium (Albuterol/ Ipratropium) 3 ml Q4H PRN HHN Shortness of Breath 02/27/18 14:00 03/03/18 13:59 Albuterol/ Ipratropium (Albuterol/ Ipratropium) 3 ml TIDRT N 02/27/18 13:00 03/03/18 06:59 02/27/18 19:57 Amlodipine Besylate (Norvasc) 10 mg DAILY ORAL 02/28/18 09:00 03/23/18 08:59 Aspirin (ASA) 81 mg DAILY ORAL 02/28/18 09:00 03/23/18 08:59 Atorvastatin Calcium (Lipitor) 40 mg BEDTIME ORAL 02/27/18 21:00 03/23/18 20:59 02/27/18 21:01 Bisacodyl (Dulcolax) 10 mg DAILY PRN RECTAL CONSTIPATION 02/28/18 09:00 03/22/18 21:14 Docusate Sodium (Colace) 100 mg DAILY GT 02/28/18 09:00 03/28/18 08:59 Doxazosin Mesylate (Cardura) 1 mg DAILY ORAL 02/28/18 09:00 03/23/18 08:59 Famotidine (Pepcid) 20 mg DAILY ORAL 02/28/18 09:00 03/23/18 08:59 Fluconazole (Diflucan) 100 mg DAILY ORAL 02/28/18 09:00 02/28/18 23:59 Heparin Sodium (Porcine) (Heparin 5000 units/ml) 5,000 units EVERY 12 HOURS SUBQ 02/27/18 21:00 03/24/18 08:59 02/27/18 21:06 Magnesium Hydroxide (Mom) 30 ml DAILY ORAL 02/28/18 09:00 03/23/18 08:59 Midodrine (Pro-Amatine) 2.5 mg THREE TIMES A DAY ORAL 02/27/18 13:00 03/23/18 08:59 02/27/18 17:26 Multivitamins (Multivitamins W/ Minerals 15ml Liquid) 15 ml DAILY GT 02/28/18 09:00 03/28/18 08:59 Piperacillin Sod/ Tazobactam Sod 3.375 gm/Sodium Chloride 110 ml @ 27.5 mls/hr EVERY 8 HOURS IVPB 02/27/18 14:00 03/02/18 23:59 02/27/18 21:02 Sennosides (Senokot) 2 tab BID PRN GT Constipation 02/27/18 18:00 03/22/18 21:14 Sodium Phosphate (Fleet's Sodium Phosl Enema) 133 ml Q2D PRN RECTAL CONSTIPATION 02/28/18 21:15 03/22/18 21:14 Tamsulosin HCl (Flomax) 0.4 mg BEDTIME ORAL 02/27/18 21:00 03/23/18 20:59 02/27/18 21:01 Jones Rasmussen MD Feb 27, 2018 21:30
[2018-02-28] VITALS: BP 134/73
--- NOTE | 2018-02-28 02:15 | Progress Note ---
DATE: 02/27/2018 CARDIOLOGY PROGRESS NOTE SUBJECTIVE: No new distress. Continues on antibiotics. Tolerating feeding following G-tube replacement. Labs notable for potassium 3.2 and magnesium 1.7. White count 3.6 and hemoglobin 10.6. OBJECTIVE: LUNGS: Coarse breath sounds. CARDIAC: Regular rhythm and rate. Normal S1 and S2 with a fourth heart sound. ABDOMEN: Soft. G-tube intact. EXTREMITIES: No edema. LABORATORY AND DIAGNOSTIC DATA: Chest x-ray reveals decreased pleural effusion . IMPRESSION: 1. Aspiration pneumonia, improved. 2. Pleural effusion, resolving. 3. Hypokalemia and hypomagnesemia. 4. Chronic diastolic congestive heart failure. 5. Cerebrovascular disease with dementia. 6. Dysphagia, status post G-tube replacement. PLAN: IV magnesium and oral potassium by G-tube. Complete antimicrobials per Infectious Disease learning and development consultant. Respiratory therapy. G-tube feedings with protein supplement. Discharge planning. Jones Arauz M.D. DR: LUDA JOB#: [id number] CC:
[2018-02-28 04:00] VITALS: BP 154/87
[2018-02-28] MEDS: Piperacillin/Tazobactam 3.375 GM in NS 110 ML IVPB SCH (05:15)
[2018-02-28 08:00] VITALS: BP 127/66
--- NOTE | 2018-02-28 08:14 | Cardiology Report ---
APPROVED REPORT EXAM: Two-dimensional and M-mode echocardiogram with Doppler and color Doppler. INDICATION Congestive Heart Failure M-Mode DIMENSIONS IVSd1.0 (0.7-1.1cm)Left Atrium (MM)3.7 (1.6-4.0cm) LVDd3.9 (3.5-5.6cm)Aortic Root3.0 (2.0-3.7cm) PWd0.9 (0.7-1.1cm)Aortic Cusp Exc.2.0 (1.5-2.0cm) LVDs2.1 (2.5-4.0cm) PWs1.5 cm Technically difficult and limited study due to poor acoustic windows. Subcostal views not obtainable. Study quality precludes accurate assessment of regional wall motion. Normal left ventricular chamber size, systolic function and wall motion to extent visualized. Left ventricular ejection fraction estimated to be 60 %. No evidence of left ventricular hypertrophy. Anterior Echo-free space, may be due to pericardial fat or effusion. All other cardiac chamber sizes are within normal limits. Mild focal aortic valve sclerosis with adequate cusp excursion. Mildly thickened mitral valve leaflets with normal excursion. Moderate mitral annulus and aortic root calcification. Pulmonic valve not visualized. Normal tricuspid valve structure. IVC is normal in size with physiological collapse. A color flow and spectral Doppler study was performed and revealed: Trace aortic insufficiency. No mitral regurgitation. Mitral diastolic velocities suggest mild left ventricular diastolic dysfunction (Grade I). Trace tricuspid regurgitation. Tricuspid systolic velocities suggests peak right ventricular systolic pressure of 23 mmHg.
[2018-02-28] MEDS: Albuterol/Ipratropium 3ml neb HHN SCH ×2 (08:32→12:44)
[2018-02-28] MEDS ORDERED: Multivitamins W/Minerals 15 ML UDC GT SCH (09:00)
[2018-02-28] MEDS ORDERED: Aspirin Baby 81mg ORAL SCH (09:00)
[2018-02-28] MEDS ORDERED: Fluconazole 100mg tab ORAL SCH (09:00)
[2018-02-28] MEDS ORDERED: Milk of Magnesia 30ml Ud ORAL SCH (09:00)
[2018-02-28] MEDS ORDERED: Docusate 100mg/10ml Liq GT SCH (09:00)
[2018-02-28] MEDS ORDERED: Doxazosin 1mg Tab ORAL SCH (09:00)
[2018-02-28] MEDS: Heparin 5000 units/ml inj SUBQ SCH (09:15)
[2018-02-28] MEDS ORDERED: Tubing IV Secondary IV ONE ×2 (11:00→16:34)
[2018-02-28] MEDS ORDERED: NS 275ml ONE (11:00)
[2018-02-28] MEDS ORDERED: NS 500ML ONE (11:00)
[2018-02-28] MEDS ORDERED: D5NS 1000ml IV ONE (11:00)
[2018-02-28 12:00] VITALS: BP 101/69
[2018-02-28 12:01] VITALS: BP 123/53
--- NOTE | 2018-02-28 15:14 | Infectious Diseases Prog Note ---
Assessment/Plan Assessment/Plan A: Pneumonia VRE colonization Dementia BPH Seizure disorder Hypoxemia Anemia P; agree with discharge discontinue Fluconazole Subjective ROS Limited/Unobtainable: Yes Allergies: Coded Allergies: No Known Allergies (Unverified , 01/27/17) Objective Vital Signs Last 24 Hour Vital Signs Date Time Temp Pulse Resp B/P (MAP) Pulse Ox O2 Delivery O2 Flow Rate FiO2 02/28/18 12:54 97 20 98 Room Air 21 02/28/18 12:44 97 20 96 Room Air 21 02/28/18 12:01 97.9 94 24 123/53 (76) 100 97.9 02/28/18 12:00 97.3 72 16 101/69 (80) 100 97.3 02/28/18 09:13 80 127/66 02/28/18 08:44 80 20 99 Room Air 21 02/28/18 08:32 90 20 97 Room Air 21 02/28/18 08:00 98.2 98 16 127/66 (86) 97 98.2 02/28/18 08:00 Room Air 02/28/18 07:49 91 02/28/18 04:00 97.4 100 18 154/87 (109) 100 97.4 02/28/18 04:00 93 02/28/18 00:00 84 02/28/18 00:00 98.0 95 18 134/73 (93) 100 98.0 02/27/18 21:00 Room Air 02/27/18 20:12 75 18 99 Room Air 21 02/27/18 20:00 97.8 101 18 101/62 (75) 100 97.8 02/27/18 20:00 82 02/27/18 19:57 86 18 97 Room Air 21 02/27/18 16:00 97.5 87 20 108/59 (75) 100 97.5 02/27/18 16:00 85 Height (Feet): 5 Height (Inches): 10.00 Weight (Pounds): 131 General Appearance: no acute distress HEENT: mucous membranes moist Respiratory/Chest: lungs clear Cardiovascular: normal rate Abdomen: soft, non tender Extremities: no edema Neurologic/Psychiatric: disoriented, other - awake Laboratory Tests Test 02/28/18 08:20 Magnesium Level 2.3 MG/DL (1.8-2.4) Current Medications Medications (Trade) Dose Ordered Sig/Iram Route PRN Reason Start Time Stop Time Status Last Admin Dose Admin Acetaminophen (Tylenol) 650 mg Q4H PRN ORAL Fever/Headache/Mild Pain 02/27/18 13:15 03/22/18 21:14 Acetylcysteine (Mucomyst) 100 mg TIDRT N 02/27/18 13:00 03/23/18 12:59 02/28/18 12:44 Albuterol/ Ipratropium (Albuterol/ Ipratropium) 3 ml Q4H PRN HHN Shortness of Breath 02/27/18 14:00 03/03/18 13:59 Albuterol/ Ipratropium (Albuterol/ Ipratropium) 3 ml TIDRT N 02/27/18 13:00 03/03/18 06:59 02/28/18 12:44 Amlodipine Besylate (Norvasc) 10 mg DAILY ORAL 02/28/18 09:00 03/23/18 08:59 02/28/18 09:13 Aspirin (ASA) 81 mg DAILY ORAL 02/28/18 09:00 03/23/18 08:59 02/28/18 09:13 Atorvastatin Calcium (Lipitor) 40 mg BEDTIME ORAL 02/27/18 21:00 03/23/18 20:59 02/27/18 21:01 Bisacodyl (Dulcolax) 10 mg DAILY PRN RECTAL CONSTIPATION 02/28/18 09:00 03/22/18 21:14 Docusate Sodium (Colace) 100 mg DAILY GT 02/28/18 09:00 03/28/18 08:59 02/28/18 09:12 Doxazosin Mesylate (Cardura) 1 mg DAILY ORAL 02/28/18 09:00 03/23/18 08:59 02/28/18 09:13 Famotidine (Pepcid) 20 mg DAILY ORAL 02/28/18 09:00 03/23/18 08:59 02/28/18 09:11 Fluconazole (Diflucan) 100 mg DAILY ORAL 02/28/18 09:00 03/07/18 08:59 02/28/18 09:12 Heparin Sodium (Porcine) (Heparin 5000 units/ml) 5,000 units EVERY 12 HOURS SUBQ 02/27/18 21:00 03/24/18 08:59 02/28/18 09:15 Magnesium Hydroxide (Mom) 30 ml DAILY ORAL 02/28/18 09:00 03/23/18 08:59 02/28/18 09:11 Midodrine (Pro-Amatine) 2.5 mg THREE TIMES A DAY ORAL 02/27/18 13:00 03/23/18 08:59 02/28/18 09:13 Multivitamins (Multivitamins W/ Minerals 15ml Liquid) 15 ml DAILY GT 02/28/18 09:00 03/28/18 08:59 02/28/18 09:12 Sennosides (Senokot) 2 tab BID PRN GT Constipation 02/27/18 18:00 03/22/18 21:14 Sodium Phosphate (Fleet's Sodium Phosl Enema) 133 ml Q2D PRN RECTAL CONSTIPATION 02/28/18 21:15 03/22/18 21:14 Tamsulosin HCl (Flomax) 0.4 mg BEDTIME ORAL 02/27/18 21:00 03/23/18 20:59 02/27/18 21:01 Rahul Shen MD Feb 28, 2018 15:14
[2018-02-28 16:00] VITALS: BP 108/78
[2018-02-28] MEDS ORDERED: Fleet's Enema 133ml RECTAL PRN (21:15)
--- NOTE | 2018-02-28 22:46 | General Progress Note ---
Assessment/Plan Assessment/Plan Assessment - dysfunctional GT - replaced - progressive Iron deficiency anemia - abnormal LFT, CT and hepatitis serologies negative 12/20 - OBS - FTT / poor prognosis Recommendations - TF - Elevate HOB - Check OB - Family to decide on level of care and w/u - u/s noted Subjective Allergies: Coded Allergies: No Known Allergies (Unverified , 01/27/17) Subjective Above noted tolerating TF await decision from family re anemia Objective Last 24 Hour Vital Signs Date Time Temp Pulse Resp B/P (MAP) Pulse Ox O2 Delivery O2 Flow Rate FiO2 02/28/18 16:00 97.0 74 18 108/78 (88) 97.0 02/28/18 12:54 97 20 98 Room Air 21 02/28/18 12:44 97 20 96 Room Air 21 02/28/18 12:01 97.9 94 24 123/53 (76) 100 97.9 02/28/18 12:00 97.3 72 16 101/69 (80) 100 97.3 02/28/18 11:35 100 02/28/18 09:13 80 127/66 02/28/18 08:44 80 20 99 Room Air 21 02/28/18 08:32 90 20 97 Room Air 21 02/28/18 08:00 98.2 98 16 127/66 (86) 97 98.2 02/28/18 08:00 Room Air 02/28/18 07:49 91 02/28/18 04:00 97.4 100 18 154/87 (109) 100 97.4 02/28/18 04:00 93 02/28/18 00:00 84 02/28/18 00:00 98.0 95 18 134/73 (93) 100 98.0 Intake and Output 02/27/18 02/28/18 19:00 07:00 Intake Total 442.5 ml 858.15 ml Output Total 350 ml Balance 92.5 ml 858.15 ml Intake Free Water 100 ml 220 ml IV Total 192.5 ml 258.15 ml Tube Feeding 120 ml 380 ml Other 30 ml Output Urine Total 350 ml Laboratory Tests 02/28/18 08:20: Magnesium Level 2.3 Height (Feet): 5 Height (Inches): 10.00 Weight (Pounds): 131 Objective WDWN NCAT supple CTA RRR abd soft , (+) GT contracted OBS Khorrami,Payman MD Feb 28, 2018 22:46
--- NOTE | 2018-03-04 07:25 | Discharge Summary ---
Discharge Summary Discharge Summary _ DATE OF ADMISSION: 02/20/2018 DATE OF DISCHARGE: 02/28/2018 REASON FOR ADMISSION: 72 years old male with past medical history of encephalopathy, dysphagia, gastrostomy tube, anemia, hypertension, seizure disorder, was recently hospitalized with pneumonia, and after stabilization was discharged to snf facility. He did well until the day of admission, when he developed fever, altered mental status and was transferred to [place] emergency room for evaluation. Chest x-ray revealed diffuse pulmonary infiltrates. Patient was febrile and confused. Patient was pancultured and started on empiric antibiotic. CT of the head revealed no acute intracranial pathology but showed chronic age- related changes changes and evidence of multiply old CVA. Patient admitted with diagnoses of possible sepsis, pneumonia ,respiratory failure, dysphagia, G-tube, hypoxemia. CONSULTANTS: living skills advisor pulmonary Dr. Cisse ID specialist GI specialist Dr. Amaya [facility] COURSE: Patient admitted to telemetry floor. Patient started on empiric antibiotics. ID specialist closely followed. Urine culture revealed Kaylah , blood culture were negative. Infectious disease specialist optimized antibiotic regimen . Supplemental oxygen provided to keep pulse oximetry above 90%. Pulmonary toilet provided. Patient was suctioned as needed. Strict aspiration /reflux precautions were maintained. Follow-up chest x-ray revealed small improvement. DVT prophylaxis provided. Noted malfunctioning G-tube which was replaced by GI specialist , who closely followed patient. Patient slowly started back on tube feeding with strict aspiration. reflux precaution. Patient was able to tolerate tube feeding. Public Health Inspector closely followed. Echocardiogram revealed preserved ejection fraction, no wall motion abnormalities and evidence of chronic diastolic congestive heart failure. No clinical evidence of decompensation. Blood pressure was managed with calcium channel cr. Antiplatelet therapy and statin were continued. DVT and GI prophylaxis provided Renal parameters and electrolytes were closely monitored. Electrolytes were replaced as needed. Nephrotoxins were avoided. Patient with evidence of microcytic anemia. Hemoglobin and hematocrit were closely monitored with goal to keep hemoglobin above 7. Noted abnormal LFT, which were closely monitored and tended. Hepatitis serology on previous admission negative . Abdominal ultrasound revealed evidence of cirrhosis and splenomegaly. molder apprentice's recommendations implemented in plan of care to improve nutritional status. Seizure precautions were maintained. Supportive care provided. Bowel regimen instituted. Patient clinically improved and was stable for transfer back to snf facility for continuation of care FINAL DIAGNOSES: Aspiration pneumonia Fungal UTI Respiratory failure with hypoxemia Dysphagia, status post PEG Malfunctioning G-tube ,status post replacement Hypoxemia Cerebrovascular disease with dementia Chronic diastolic congestive heart failure Electrolyte abnormalities: hypokalemia ,hypomagnesemia ,hyponatremia Microcytic anemia, suspecting blood loss Abnormal LFT Severe protein calorie malnutrition Seizure disorder BPH DISCHARGE MEDICATIONS: See Medication Reconciliation list. Patient to complete IV antibiotics as outlined and medication reconciliation list. DISCHARGE INSTRUCTIONS: Patient was discharged to snf facility. Follow up with medical doctor at the facility. I have been assigned to dictate discharge summary for this account. I was not involved in the patient's management. Mandi Collazo NP Mar 04, 2018 07:24
== END 2018-02-28 16:35 | DRG 871 ==
LOC: EDBD 16:14 → EDBEDREQSVC 16:24 → EMR 16:45 → 2W 17:10 → EDBEDREQ 18:25 → 2W 20:02 → 2E 02-27 09:54
PROC: 0D20XUZ Change Feeding Device in Upper Intestinal Tract, External Approach (ICD-10-PCS; principal; 2018-02-26)
DX: A41.9 Sepsis, unspecified organism (principal); G93.40 Encephalopathy, unspecified; J69.0 Pneumonitis due to inhalation of food and vomit; J96.91 Respiratory failure, unspecified with hypoxia; E43 Unspecified severe protein-calorie malnutrition; B37.49 Other urogenital candidiasis; K94.23 Gastrostomy malfunction; I50.32 Chronic diastolic (congestive) heart failure; E87.1 Hypo-osmolality and hyponatremia; Z68.1 Body mass index [BMI] 19.9 or less, adult; K92.2 Gastrointestinal hemorrhage, unspecified; R13.10 Dysphagia, unspecified; D50.9 Iron deficiency anemia, unspecified; I11.0 Hypertensive heart disease with heart failure; F01.50 Vascular dementia, unspecified severity, without behavioral disturbance, psychotic disturbance, mood disturbance, and anxiety; N40.0 Benign prostatic hyperplasia without lower urinary tract symptoms; G40.909 Epilepsy, unspecified, not intractable, without status epilepticus; E87.6 Hypokalemia; E83.42 Hypomagnesemia; R62.7 Adult failure to thrive
CPT/HCPCS: 36415; 36600; 70450; 71045; 74018; 76700; 80053; 80202; 81003; 82550; 82553; 82728; 82803; 83540; 83550; 83605; 83690; 83735; 83880; 84484; 85025; 87040; 87070; 87081; 87086; 87205; 93005; 93306; 94640; 94664; 94760; 99285; J7620; J8499

== ENCOUNTER 2018-04-26 20:19 | Inpatient (IN) | payer MEDICARE, OTHER ==
[~2018-04-26] VITALS: Ht 170.2 cm; Wt 72.8 kg
[~2018-04-26 20:19] MED LIST changes: +CRANBERRY425 MG PO
--- NOTE | 2018-04-26 20:28 | Emergency Room Report ---
History of Present Illness General Chief Complaint: Altered Level of Consciousness Source: Family Member, EMS Present Illness HPI Patient was brought by EMS for altered level of consciousness from a [place] [facility]. Apparently was recently discharged from [facility]. Family states that he's altered today. According to nursing staff for the last 4 days he has been at this level of alertness. He is has a tracheostomy which was recently placed after intubation at [facility]. H/O pulmonary TB - under treatment. G tube placement. No further history is available aside from what is in the medical record. Allergies: Coded Allergies: No Known Allergies (Unverified , 01/27/17) Patient History Limited by: medical condition Past Medical History: see triage record, old chart reviewed Past Surgical History: other - G tube, trach Social History: Denies: smoking Social History Narrative SNF Reviewed Nursing Documentation: PMH: Agreed; PSxH: Agreed Nursing Documentation-PMH Hx Cardiac Problems: Yes - tachycardia. Hyperlipidemia. Hx Hypertension: Yes Hx Cancer: No Hx Gastrointestinal Problems: Yes - Dysphagia. GERD. Hx Neurological Problems: Yes - syphilis, encephalopathy Hx Cerebrovascular Accident: Yes Hx Transient Ischemic Attacks: Yes Hx Dementia: Yes Hx Seizures: Yes Hx Syncope: Yes Review of Systems All Other Systems: limited Physical Exam Vital Signs Date Time Temp Pulse Resp B/P (MAP) Pulse Ox O2 Delivery O2 Flow Rate FiO2 04/26/18 20:14 100 15 140/80 100 Nasal Cannula 2.0 Sp02 EP Interpretation: reviewed, normal General Appearance: lethargic, Chronically Ill Head: normocephalic Eyes: bilateral eye other - Arcus bilaterally ENT: moist mucus membranes - geographic tongue with white plaque Neck: supple, tracheotomy Respiratory: lungs clear, normal breath sounds Cardiovascular #1: regular rate, rhythm Cardiovascular #2: 2+ radial (R) Gastrointestinal: non tender, soft, other - g tube, scaphoid Musculoskeletal: back normal, normal range of motion Neurologic: DTRs symmetric, sensory intact, no Babinski, aphasia, motor weakness - generalized, other - + gag Psychiatric: other - stupor Skin: warm/dry Medical Decision Making Diagnostic Impression: Primary Impression: Altered level of consciousness Additional Impressions: Dehydration Pulmonary tuberculosis Suspected thrush ER Course Patient presents with altered level of consciousness the [place] [facility]. Differential includes sepsis, electrolyte abnormality, other occult infection, UTI, hypothyroidism, metabolic encephalopathy amongst others. Patient will be evaluated with chest x-ray EKG and labs. The patient be treated with a fluid bolus and aggressive hydration as he appears dehydrated at this time. Based on exam, CT not indicated. TB under treatment. EKG without injury. CXR with atelectasis R base. Labs with normal WBC, H/H. CMP with elevated BUN. UA fairly clear. Patient seen in the emergency department by Dr. Vásquez. Patient's admission and evaluation was discussed. He states chronic decreased responsiveness. However, there are some reversible causes needing treatment. Admit telemetry, Dr. Vásquez. Laboratory Tests Test 04/26/18 20:15 04/26/18 21:35 White Blood Count 4.4 K/UL (4.8-10.8) L Red Blood Count 4.10 M/UL (4.70-6.10) L Hemoglobin 9.4 G/DL (14.2-18.0) L Hematocrit 31.3 % (42.0-52.0) L Mean Corpuscular Volume 76 FL (80-99) L Mean Corpuscular Hemoglobin 23.0 PG (27.0-31.0) L Mean Corpuscular Hemoglobin Concent 30.2 G/DL (32.0-36.0) L Red Cell Distribution Width 17.4 % (11.6-14.8) H Platelet Count 204 K/UL (150-450) Mean Platelet Volume 5.5 FL (6.5-10.1) L Neutrophils (%) (Auto) 80.1 % (45.0-75.0) H Lymphocytes (%) (Auto) 7.9 % (20.0-45.0) L Monocytes (%) (Auto) 10.4 % (1.0-10.0) H Eosinophils (%) (Auto) 0.7 % (0.0-3.0) Basophils (%) (Auto) 0.9 % (0.0-2.0) Prothrombin Time 10.9 SEC (9.30-11.50) Prothrombin Time INR 1.0 (0.9-1.1) PTT 35 SEC (23-33) H Sodium Level 139 MMOL/L (136-145) Potassium Level 4.2 MMOL/L (3.5-5.1) Chloride Level 103 MMOL/L (98-107) Carbon Dioxide Level 31 MMOL/L (21-32) Anion Gap 5 mmol/L (5-15) Blood Urea Nitrogen 29 mg/dL (7-18) H Creatinine 0.5 MG/DL (0.55-1.30) L Estimate Glomerular Filtration Rate mL/min (>60) Glucose Level 94 MG/DL (74-106) Lactic Acid Level 1.00 mmol/L (0.4-2.0) Calcium Level 9.3 MG/DL (8.5-10.1) Total Bilirubin 0.4 MG/DL (0.2-1.0) Aspartate Amino Transferase (AST) 46 U/L (15-37) H Alanine Aminotransferase (ALT) 22 U/L (12-78) Alkaline Phosphatase 517 U/L (46-116) H Total Creatine Kinase 51 U/L (26-308) Troponin I 0.000 ng/mL (0.000-0.056) Pro-B-Type Natriuretic Peptide 202 pg/mL (0-125) H Total Protein 7.6 G/DL (6.4-8.2) Albumin 2.1 G/DL (3.4-5.0) L Globulin 5.5 g/dL Albumin/Globulin Ratio 0.4 (1.0-2.7) L Lipase 355 U/L (73-393) Urine Color Yellow Urine Appearance Clear Urine pH 7 (4.5-8.0) Urine Specific [place] 1.005 (1.005-1.035) Urine Protein 1+ (NEGATIVE) H Urine Glucose (UA) Negative (NEGATIVE) Urine Ketones Negative (NEGATIVE) Urine Blood Negative (NEGATIVE) Urine Nitrite Negative (NEGATIVE) Urine Bilirubin Negative (NEGATIVE) Urine Urobilinogen Normal MG/DL (0.0-1.0) Urine Leukocyte Esterase 2+ (NEGATIVE) H Urine RBC 0-2 /HPF (0 - 0) H Urine WBC 2-4 /HPF (0 - 0) Urine Squamous Epithelial Cells None /LPF (NONE/OCC) Urine Bacteria Few /HPF (NONE) EKG Diagnostic Results Rate: normal Rhythm: NSR ST Segments: no acute changes Rhythm Strip Diag. Results EP Interpretation: yes Rhythm: NSR, no PVC's, no ectopy Chest X-Ray Diagnostic Results Chest X-Ray Diagnostic Results : Chest X-Ray Ordered: Yes # of Views/Limited/Complete: 1 View Indication: Other EP Interpretation: Yes Interpretation: no effusion, no pneumothorax, other - atelectasis R Impression: Other Electronically Signed by: Electronically signed by Jones Moody MD Last Vital Signs Date Time Temp Pulse Resp B/P (MAP) Pulse Ox O2 Delivery O2 Flow Rate FiO2 04/26/18 20:14 100 15 140/80 100 Nasal Cannula 2.0 Status: improved Disposition: ADMITTED INPATIENT Condition: Serious Jones Moody M.D. Apr 26, 2018 20:28
[2018-04-26 20:56] LABS: ANION GAP 5 mmol/L (5-15); BASOPHILS % (AUTO) 0.9 % (0.0-2.0); BLOOD UREA NITROGEN 29 mg/dL (7-18); CALCIUM 9.3 MG/DL (8.5-10.1); CARBON DIOXIDE 31 MMOL/L (21-32); CHLORIDE 103 MMOL/L (98-107); CREATININE 0.5 MG/DL (0.55-1.30); EOSINOPHILS % (AUTO) 0.7 % (0.0-3.0); HEMATOCRIT 31.3 % (42.0-52.0); HEMOGLOBIN 9.4 G/DL (14.2-18.0); LYMPHOCYTES % (AUTO) 7.9 % (20.0-45.0); MEAN CORPUSCULAR VOLUME 76 FL (80-99); MONOCYTES % (AUTO) 10.4 % (1.0-10.0); NEUTROPHILS % (AUTO) 80.1 % (45.0-75.0); PLATELET COUNT 204 K/UL (150-450); POTASSIUM 4.2 MMOL/L (3.5-5.1); RED CELL DISTRIBUTION WIDTH 17.4 % (11.6-14.8); SODIUM 139 MMOL/L (136-145); WHITE BLOOD COUNT 4.4 K/UL (4.8-10.8)
[2018-04-26 21:06] LABS: ALANINE AMINOTRANSFERASE 22 U/L (12-78); ALBUMIN 2.1 G/DL (3.4-5.0); ALBUMIN/GLOBULIN RATIO 0.4 (1.0-2.7); ALKALINE PHOSPHATASE 517 U/L (46-116); ASPARTATE AMINO TRANSFERASE 46 U/L (15-37); BILIRUBIN,TOTAL 0.4 MG/DL (0.2-1.0); CREATINE KINASE 51 U/L (26-308)
--- NOTE | 2018-04-26 21:15 | Diagnostic Imaging Report ---
EXAM: XR Chest, 1 View CLINICAL HISTORY: ALOC TECHNIQUE: Frontal view of the chest. COMPARISON: Chest x-ray 02/27/18 FINDINGS: Lungs: Mild right lower lung atelectasis. No consolidation. Pleural space: Unremarkable. No pneumothorax. Heart: Unremarkable. No cardiomegaly. Mediastinum: Unremarkable. Bones/joints: Degenerative changes of the spine. Tubes, lines and devices: Interval placement of tracheostomy tube 3.5 cm above the thalia. IMPRESSION: 1. Interval placement of tracheostomy tube 3.5 cm above the thalia. 2. Mild right lower lung atelectasis.
[2018-04-26 22:06] LABS: APPEARANCE,URINE CLEAR; BILIRUBIN, URINE NEGATIVE (NEGATIVE); GLUCOSE, URINE (UA) NEGATIVE (NEGATIVE); KETONES,URINE NEGATIVE (NEGATIVE); LEUKOCYTE ESTERASE ,URINE 2+ (NEGATIVE); NITRITE,URINE NEGATIVE (NEGATIVE); PH,URINE 7 (4.5-8.0); PROTEIN,URINE 1+ (NEGATIVE); UROBILINOGEN,URINE NORMAL MG/DL (0.0-1.0)
[2018-04-26 22:08] LABS: COLOR,URINE YELLOW
[2018-04-26 22:34] VITALS: BP 151/69
[2018-04-26] MEDS ORDERED: Sennosides 8.6mg GT PRN (23:15)
[2018-04-27] VITALS (16 sets, daily range): BP systolic 114–149; BP diastolic 21–89
--- NOTE | 2018-04-27 03:15 | Consultation ---
DATE OF CONSULTATION: 04/26/2018 CARDIOLOGY CONSULTATION CONSULTING PHYSICIAN: Jones Arauz M.D. REQUESTING PHYSICIAN: Jarrod Vásquez M.D. REASON FOR CONSULTATION: Cardiovascular management in the setting of hypovolemia and dehydration and possible sepsis. HISTORY OF PRESENT ILLNESS: This is a 72-year-old male with a history of hypertensive heart disease, dysphagia, and recent tracheostomy, who resides at a assisted facility and has been increasingly altered in mentation prompting him to be referred to the emergency room. Laboratory evaluation is suggestive of dehydration and possible sepsis. I have been asked to assist with cardiovascular care. PAST MEDICAL HISTORY: 1. Dysphagia. 2. Gastrostomy tube. 3. Chronic encephalopathy. 4. Tracheostomy. 5. Chronic kidney disease. 6. Hypertension with hypertensive heart disease. 7. Anemia of chronic kidney disease. 8. Hyperlipidemia. 9. History of tertiary syphilis. 10. Vitamin B12 deficiency. 11. Prostatic hypertrophy. 12. Chronic hypotension. MEDICATIONS: Reviewed and reconciled. ALLERGIES: None known. SOCIAL HISTORY: No record of smoking, alcohol, or substance abuse. REVIEW OF SYSTEMS: Not presently obtainable. PHYSICAL EXAM: VITAL SIGNS: Blood pressure 140/80, pulse 100, and respirations 15. Afebrile. HEENT: Temporal wasting. Pale conjunctiva. Trach site with no signs of bleeding. LUNGS: With coarse breath sounds. No wheezing. CARDIAC: Regular rhythm and rate. Normal S1, S2 with a fourth heart sound. ABDOMEN: Soft and nontender. G-tube intact. EXTREMITIES: No edema. LABORATORY DATA: Labs today, EKG sinus rhythm, possible septal infarction, nonspecific ST changes. White count 4.4 and hemoglobin 9.4. Sodium 139, potassium 4.2, bicarbonate 31, BUN 29, and creatinine 0.5. Lactic acid normal. Troponin 0. Pro-natriuretic peptide 202. Albumin 2.1. IMPRESSION: 1. Toxic and metabolic encephalopathy. 2. Hypovolemia and dehydration. 3. Prerenal azotemia with acute on chronic kidney injury. 4. Chronic diastolic congestive heart failure. 5. Hypertensive heart disease. 6. Possible sepsis. 7. Dysphagia with gastrostomy tube. 8. Respiratory failure with tracheostomy. PLAN: 1. Respiratory hygiene. 2. Panculture. 3. Volume resuscitation with saline intravenously. 4. Nutrition by feeding tube. 5. Continue anti-platelet therapy and statin drug. 6. Check lipid panel and CK. 7. Discontinue midodrine in view of stable blood pressure parameters. 8. DVT and stress ulcer prophylaxis. Jones Arauz M.D. DR: ERICA JOB#: [id number] CC:
[2018-04-27] MEDS: Albuterol/Ipratropium 3ml neb HHN SCH ×2 (03:41→07:49)
[2018-04-27 08:14] LABS: BASOPHILS % (AUTO) 0.6 % (0.0-2.0); EOSINOPHILS % (AUTO) 0.4 % (0.0-3.0); HEMATOCRIT 27.2 % (42.0-52.0); HEMOGLOBIN 8.6 G/DL (14.2-18.0); LYMPHOCYTES % (AUTO) 7.1 % (20.0-45.0); MEAN CORPUSCULAR VOLUME 76 FL (80-99); NEUTROPHILS % (AUTO) 83.8 % (45.0-75.0); PLATELET COUNT 186 K/UL (150-450); RED BLOOD COUNT 3.58 M/UL (4.70-6.10); RED CELL DISTRIBUTION WIDTH 17.8 % (11.6-14.8); WHITE BLOOD COUNT 7.8 K/UL (4.8-10.8)
[2018-04-27 08:43] LABS: ALANINE AMINOTRANSFERASE 18 U/L (12-78); ALBUMIN 1.9 G/DL (3.4-5.0); ALBUMIN/GLOBULIN RATIO 0.4 (1.0-2.7); ALKALINE PHOSPHATASE 393 U/L (46-116); ANION GAP 9 mmol/L (5-15); ASPARTATE AMINO TRANSFERASE 45 U/L (15-37); BILIRUBIN,TOTAL 0.4 MG/DL (0.2-1.0); BLOOD UREA NITROGEN 23 mg/dL (7-18); CALCIUM 8.7 MG/DL (8.5-10.1); CARBON DIOXIDE 24 MMOL/L (21-32); CHLORIDE 105 MMOL/L (98-107); CHOLESTEROL 117 MG/DL (< 200); CREATINE KINASE 36 U/L (26-308); CREATININE 0.5 MG/DL (0.55-1.30); HDL CHOLESTEROL 55 MG/DL (40-60); POTASSIUM 4.1 MMOL/L (3.5-5.1); SODIUM 138 MMOL/L (136-145); TRIGLYCERIDES 56 MG/DL (30-150)
[2018-04-27] MEDS ORDERED: Pyridoxine 50mg tab ORAL SCH (09:00)
[2018-04-27] MEDS ORDERED: Docusate 100mg cap ORAL SCH (09:00)
[2018-04-27] MEDS ORDERED: Heparin 5000 units/ml inj SUBQ SCH (09:00)
[2018-04-27] MEDS ORDERED: Aspirin Baby 81mg ORAL SCH (09:00)
[2018-04-27] MEDS ORDERED: Isoniazid 300mg tab ORAL SCH (09:00)
[2018-04-27] MEDS ORDERED: Multivitamin w/Minerals tab ORAL SCH (09:00)
[2018-04-27] MEDS: Ipratropium 0.02% Inh Soln 2.5ml UD HHN SCH ×4 (10:45→23:01)
[2018-04-27] MEDS ORDERED: LORazepam Inj 2mg/ml 1ml IVP SCH (11:47)
[2018-04-27] MEDS ORDERED: LORazepam Inj 2mg/ml 1ml IV PRN (12:30)
[2018-04-27] MEDS ORDERED: levETIRAcetam 500mg/NS100ml 100 ML IVPB SCH (13:00)
--- NOTE | 2018-04-27 13:42 | Cardiology Report ---
APPROVED REPORT EKG Measurement Heart [id number] Normal sinus rhythm Minimal voltage criteria for LVH, may be normal variant Septal infarct, age undetermined Abnormal ECG
--- NOTE | 2018-04-27 15:15 | History and Physical Report ---
DATE OF ADMISSION: 04/26/2018 HISTORY OF PRESENT ILLNESS: This patient was evaluated in the emergency room. The patient is an unfortunate 72-year-old male. He has a history of stroke, encephalopathy, chronic respiratory failure, and pulmonary tuberculosis. He was transferred from a assisted facility after family complained that the patient was altered. The patient had a prolonged hospitalization at [facility] where he was diagnosed with pulmonary tuberculosis. He could not be weaned, required placement of a trach and has been on G-tube. He was doing well, but on the day of admission family felt that he was more lethargic. The patient since his prior admission has been unresponsive. He was brought to the emergency room there. His initial workup was unremarkable, but in light of his reported confusion and altered mentation he is now admitted for further evaluation and care. PAST MEDICAL HISTORY: As above. PAST SURGICAL HISTORY: Includes prior history of a trach. CURRENT MEDICATIONS: Reconciled and reviewed. ALLERGIES: None. FAMILY HISTORY: None. SOCIAL HISTORY: There is no known history of tobacco, ethanol, or drugs. REVIEW OF SYSTEMS: From the patient is unobtainable as he is nonverbal. PHYSICAL EXAMINATION: VITAL SIGNS: Temperature 98.4, pulse 91, respirations 24, and blood pressure 148/87. GENERAL: The patient is a chronically ill-appearing male. He is unresponsive. NECK: Supple. Trach site is clean. HEART: Regular rate and rhythm. LUNGS: Clear. ABDOMEN: Soft. EXTREMITIES: Without clubbing, cyanosis, or edema. LABORATORY DATA: UA was clear. White count 4, hemoglobin 9, hematocrit 31, and platelets of 204,000. The ABG showed pH of 7.48, pCO2 of 38, pO2 of 120, bicarbonate 26, O2 saturation was 98%. Coags were normal. Sodium was 139, potassium 4.2, BUN 29, and creatinine 0.5. LFTs were unremarkable. ASSESSMENT AND PLAN: This is an unfortunate male with history of pulmonary diverticulosis, stroke, encephalopathy, chronic respiratory failure and admitted with complaints of altered mental status, unclear etiology. I suspect that this is the patient's baseline as he has been essentially unresponsive since his prior hospitalization. He did have a CT scan done at [facility] that showed nothing acute. So, plan here we will repeat the patient's CT scan. Neurology consultation will be obtained. The EEG has also been ordered. We will continue the patient's TB medications. Continue respiratory care and oxygen and suction as needed. Continue wound care. The patient's overall prognosis is poor. Jarrod Vásquez M.D. DR: ELIJAH JOB#: [id number] CC:
--- NOTE | 2018-04-27 15:30 | Consultation ---
Consult Note Consult Note 82-year-old male with multiple medical problems including stroke and respiratory failure. The patient with recent history of tracheostomy. The patient with recent hospitalization at [facility] where he was diagnosed with pulmonary tuberculosis. The patient was unable to wean off the respirator and was eventually taken to the operating room for a tracheostomy. Patient is G- tube dependent. Patient was noted to be more lethargic and less responsive. The patient was brought in for evaluation for ongoing management. I was called to assist with pulmonary status and further evaluation recommendations. Next The patient chart was reviewed. The care discussed with the primary MD. The patient currently comfortable on tracheostomy collar H Aspiration pneumonia Fungal UTI Respiratory failure with hypoxemia Dysphagia, status post PEG Malfunctioning G-tube ,status post replacement Hypoxemia Cerebrovascular disease with dementia Chronic diastolic congestive heart failure Electrolyte abnormalities: hypokalemia ,hypomagnesemia ,hyponatremia Microcytic anemia, suspecting blood loss Abnormal LFT Severe protein calorie malnutrition Seizure disorder BPH MEDS reviewed and reconciled SOCIAL HISTORY snf patient; disabled ROS unable PHYSICAL Sp02 EP Interpretation: reviewed, normal General Appearance: chronically il Head: normocephalic, atraumatic Eyes: bilateral eye normal inspection ENT: poor gag Neck: trach, carotid 2+ Respiratory: decreased breath sounds, scattered rhonchi Cardiovascular #1: regular rate, rhythm, no murmur without MRG Gastrointestinal: non tender, soft, non-distended, no guarding, no rebound; GT Musculoskeletal: no CCE poorly responsive Laboratory Tests Test 04/26/18 20:15 04/26/18 21:35 04/26/18 23:43 04/27/18 07:50 White Blood Count 4.4 K/UL (4.8-10.8) L 7.8 K/UL (4.8-10.8) # Red Blood Count 4.10 M/UL (4.70-6.10) L 3.58 M/UL (4.70-6.10) L Hemoglobin 9.4 G/DL (14.2-18.0) L 8.6 G/DL (14.2-18.0) L Hematocrit 31.3 % (42.0-52.0) L 27.2 % (42.0-52.0) L Mean Corpuscular Volume 76 FL (80-99) L 76 FL (80-99) L Mean Corpuscular Hemoglobin 23.0 PG (27.0-31.0) L 24.1 PG (27.0-31.0) L Mean Corpuscular Hemoglobin Concent 30.2 G/DL (32.0-36.0) L 31.7 G/DL (32.0-36.0) L Red Cell Distribution Width 17.4 % (11.6-14.8) H 17.8 % (11.6-14.8) H Platelet Count 204 K/UL (150-450) 186 K/UL (150-450) Mean Platelet Volume 5.5 FL (6.5-10.1) L 5.1 FL (6.5-10.1) L Neutrophils (%) (Auto) 80.1 % (45.0-75.0) H 83.8 % (45.0-75.0) H Lymphocytes (%) (Auto) 7.9 % (20.0-45.0) L 7.1 % (20.0-45.0) L Monocytes (%) (Auto) 10.4 % (1.0-10.0) H 8.0 % (1.0-10.0) Eosinophils (%) (Auto) 0.7 % (0.0-3.0) 0.4 % (0.0-3.0) Basophils (%) (Auto) 0.9 % (0.0-2.0) 0.6 % (0.0-2.0) Prothrombin Time 10.9 SEC (9.30-11.50) Prothromb Time International Ratio 1.0 (0.9-1.1) Activated Partial Thromboplast Time 35 SEC (23-33) H Sodium Level 139 MMOL/L (136-145) 138 MMOL/L (136-145) Potassium Level 4.2 MMOL/L (3.5-5.1) 4.1 MMOL/L (3.5-5.1) Chloride Level 103 MMOL/L (98-107) 105 MMOL/L (98-107) Carbon Dioxide Level 31 MMOL/L (21-32) 24 MMOL/L (21-32) Anion Gap 5 mmol/L (5-15) 9 mmol/L (5-15) Blood Urea Nitrogen 29 mg/dL (7-18) H 23 mg/dL (7-18) H Creatinine 0.5 MG/DL (0.55-1.30) L 0.5 MG/DL (0.55-1.30) L Estimat Glomerular Filtration Rate mL/min (>60) mL/min (>60) Glucose Level 94 MG/DL (74-106) 76 MG/DL (74-106) Lactic Acid Level 1.00 mmol/L (0.4-2.0) Calcium Level 9.3 MG/DL (8.5-10.1) 8.7 MG/DL (8.5-10.1) Total Bilirubin 0.4 MG/DL (0.2-1.0) 0.4 MG/DL (0.2-1.0) Aspartate Amino Transf (AST/SGOT) 46 U/L (15-37) H 45 U/L (15-37) H Alanine Aminotransferase (ALT/SGPT) 22 U/L (12-78) 18 U/L (12-78) Alkaline Phosphatase 517 U/L (46-116) H 393 U/L (46-116) H Total Creatine Kinase 51 U/L (26-308) 36 U/L (26-308) Troponin I 0.000 ng/mL (0.000-0.056) Pro-B-Type Natriuretic Peptide 202 pg/mL (0-125) H Total Protein 7.6 G/DL (6.4-8.2) 6.8 G/DL (6.4-8.2) Albumin 2.1 G/DL (3.4-5.0) L 1.9 G/DL (3.4-5.0) L Globulin 5.5 g/dL 4.9 g/dL Albumin/Globulin Ratio 0.4 (1.0-2.7) L 0.4 (1.0-2.7) L Lipase 355 U/L (73-393) Urine Color Yellow Urine Appearance Clear Urine pH 7 (4.5-8.0) Urine Specific [place] 1.005 (1.005-1.035) Urine Protein 1+ (NEGATIVE) H Urine Glucose (UA) Negative (NEGATIVE) Urine Ketones Negative (NEGATIVE) Urine Blood Negative (NEGATIVE) Urine Nitrite Negative (NEGATIVE) Urine Bilirubin Negative (NEGATIVE) Urine Urobilinogen Normal MG/DL (0.0-1.0) Urine Leukocyte Esterase 2+ (NEGATIVE) H Urine RBC 0-2 /HPF (0 - 0) H Urine WBC 2-4 /HPF (0 - 0) Urine Squamous Epithelial Cells None /LPF (NONE/OCC) Urine Bacteria Few /HPF (NONE) Arterial Blood pH 7.448 (7.350-7.450) Arterial Blood Partial Pressure CO2 38.4 mmHg (35.0-45.0) Arterial Blood Partial Pressure O2 120.8 mmHg (75.0-100.0) H Arterial Blood HCO3 26.0 mmol/L (22.0-26.0) Arterial Blood Oxygen Saturation 98.0 % (92.0-98.0) Arterial Blood Base Excess 1.9 Derek Test Positive Magnesium Level 1.8 MG/DL (1.8-2.4) Triglycerides Level 56 MG/DL (30-150) Cholesterol Level 117 MG/DL (< 200) LDL Cholesterol 68 mg/dL (<100) HDL Cholesterol 55 MG/DL (40-60) Cholesterol/HDL Ratio 2.1 (3.3-4.4) L IMPRESSION respiratory failure possible sepsis chronic encephalopathy trach debility hypoxemia htn PLAN care noted IV antibiotics respiratory care aspiration precautions supportive care suction follow clinically oxygen therapy prognosis guarded Nakul Cisse MD Apr 27, 2018 15:30
--- NOTE | 2018-04-27 15:34 | Pulmonology Progress Note ---
Subjective Allergies: Coded Allergies: No Known Allergies (Unverified , 01/27/17) Objective Last 24 Hour Vital Signs Date Time Temp Pulse Resp B/P (MAP) Pulse Ox O2 Delivery O2 Flow Rate FiO2 04/27/18 15:17 119 26 114/79 (91) 100 04/27/18 15:15 117 30 97 T-piece 8.0 30 04/27/18 15:00 117 17 132/63 (86) 100 04/27/18 14:00 99.0 119 17 132/63 (86) 100 99.0 04/27/18 13:00 101.2 128 28 121/21 (54) 93 101.2 04/27/18 12:33 T-piece 12.0 50 04/27/18 12:33 97 T-piece 12.0 50 04/27/18 12:22 101.0 04/27/18 12:00 103.2 143 39 148/66 (93) 87 103.2 04/27/18 12:00 165 04/27/18 12:00 T-piece 12.0 04/27/18 10:50 127 40 98 T-piece 8.0 40 04/27/18 10:49 99.9 04/27/18 10:35 128 35 97 T-piece 8.0 30 04/27/18 08:00 118 04/27/18 08:00 99.0 128 20 146/89 (108) 100 99.0 04/27/18 07:49 T-piece 8.0 30 04/27/18 07:49 97 T-piece 8.0 30 04/27/18 07:49 T-piece 8.0 30 04/27/18 07:49 122 16 97 T-piece 8.0 30 04/27/18 04:00 91 04/27/18 04:00 98.4 107 24 148/87 (107) 100 98.4 04/27/18 03:51 101 18 99 T-piece 8.0 40 04/27/18 03:41 94 18 98 T-piece 8.0 30 04/27/18 03:05 Trach Collar 04/27/18 01:49 99 T-piece 8.0 30 04/27/18 01:49 T-piece 8.0 30 04/27/18 00:00 97.2 88 23 147/42 (77) 98 97.2 04/26/18 23:29 99 T-piece 8.0 30 04/26/18 23:29 T-piece 8.0 30 04/26/18 22:55 97.4 15 151/69 100 Nasal Cannula 2.0 97.4 04/26/18 22:34 97.4 15 151/69 100 Nasal Cannula 2.0 97.4 04/26/18 20:14 100 15 140/80 100 Nasal Cannula 2.0 Intake and Output 04/26/18 04/27/18 19:00 07:00 Intake Total 0 ml Output Total 300 ml Balance -300 ml Intake Oral 0 ml Output Urine Total 300 ml # Bowel Movements 1 Microbiology Date/Time Source Procedure Growth Status 04/26/18 21:45 Rectum Received Laboratory Tests 04/26/18 20:15: White Blood Count 4.4L, Red Blood Count 4.10L, Hemoglobin 9.4L, Hematocrit 31.3L , Mean Corpuscular Volume 76L, Mean Corpuscular Hemoglobin 23.0L, Mean Corpuscular Hemoglobin Concent 30.2L, Red Cell Distribution Width 17.4H, Platelet Count 204, Mean Platelet Volume 5.5L, Neutrophils (%) (Auto) 80.1H, Lymphocytes (%) (Auto) 7.9L, Monocytes (%) (Auto) 10.4H, Eosinophils (%) (Auto) 0.7, Basophils (%) (Auto) 0.9, Prothrombin Time 10.9, Prothromb Time International Ratio 1.0, Activated Partial Thromboplast Time 35H, Sodium Level 139, Potassium Level 4.2, Chloride Level 103, Carbon Dioxide Level 31, Anion Gap 5, Blood Urea Nitrogen 29H, Creatinine 0.5L, Estimat Glomerular Filtration Rate , Glucose Level 94, Lactic Acid Level 1.00, Calcium Level 9.3, Total Bilirubin 0.4, Aspartate Amino Transf (AST/SGOT) 46H, Alanine Aminotransferase ( ALT/SGPT) 22, Alkaline Phosphatase 517H, Total Creatine Kinase 51, Troponin I 0.000, Pro-B-Type Natriuretic Peptide 202H, Total Protein 7.6, Albumin 2.1L, Globulin 5.5, Albumin/Globulin Ratio 0.4L, Lipase 355 04/26/18 21:35: Urine Color Yellow, Urine Appearance Clear, Urine pH 7, Urine Specific [place] 1.005, Urine Protein 1+H, Urine Glucose (UA) Negative, Urine Ketones Negative, Urine Blood Negative, Urine Nitrite Negative, Urine Bilirubin Negative, Urine Urobilinogen Normal, Urine Leukocyte Esterase 2+H, Urine RBC 0-2H, Urine WBC 2-4 , Urine Squamous Epithelial Cells None, Urine Bacteria Few 04/26/18 23:43: Arterial Blood pH 7.448, Arterial Blood Partial Pressure CO2 38.4, Arterial Blood Partial Pressure O2 120.8H, Arterial Blood HCO3 26.0, Arterial Blood Oxygen Saturation 98.0, Arterial Blood Base Excess 1.9, Derek Test Positive 04/27/18 07:50: White Blood Count 7.8#, Red Blood Count 3.58L, Hemoglobin 8.6L, Hematocrit 27.2L , Mean Corpuscular Volume 76L, Mean Corpuscular Hemoglobin 24.1L, Mean Corpuscular Hemoglobin Concent 31.7L, Red Cell Distribution Width 17.8H, Platelet Count 186, Mean Platelet Volume 5.1L, Neutrophils (%) (Auto) 83.8H, Lymphocytes (%) (Auto) 7.1L, Monocytes (%) (Auto) 8.0, Eosinophils (%) (Auto) 0.4, Basophils (%) (Auto) 0.6, Sodium Level 138, Potassium Level 4.1, Chloride Level 105, Carbon Dioxide Level 24, Anion Gap 9, Blood Urea Nitrogen 23H, Creatinine 0.5L, Estimat Glomerular Filtration Rate , Glucose Level 76, Calcium Level 8.7, Total Bilirubin 0.4, Aspartate Amino Transf (AST/SGOT) 45H, Alanine Aminotransferase (ALT/SGPT) 18, Alkaline Phosphatase 393H, Total Creatine Kinase 36, Total Protein 6.8, Albumin 1.9L, Globulin 4.9, Albumin/Globulin Ratio 0.4L, Magnesium Level 1.8, Triglycerides Level 56, Cholesterol Level 117, LDL Cholesterol 68, HDL Cholesterol 55, Cholesterol/HDL Ratio 2.1L Current Medications Medications (Trade) Dose Ordered Sig/Iram Route PRN Reason Start Time Stop Time Status Last Admin Dose Admin Acetaminophen (Tylenol) 650 mg Q4H PRN ORAL Fever/Headache/Mild Pain 04/27/18 00:15 05/26/18 23:14 04/27/18 10:49 Aspirin (ASA) 81 mg DAILY ORAL 04/27/18 09:00 05/27/18 08:59 04/27/18 09:27 Atorvastatin Calcium (Lipitor) 40 mg BEDTIME ORAL 04/27/18 21:00 05/27/18 20:59 Docusate Sodium (Colace) 100 mg DAILY ORAL 04/27/18 09:00 05/27/18 08:59 Ethambutol HCl (Myambutol) 800 mg DAILY ORAL 04/27/18 09:00 05/27/18 08:59 04/27/18 09:32 Famotidine (Pepcid) 20 mg DAILY ORAL 04/27/18 09:00 05/27/18 08:59 04/27/18 09:27 Heparin Sodium (Porcine) (Heparin 5000 units/ml) 5,000 units EVERY 12 HOURS SUBQ 04/27/18 09:00 05/27/18 08:59 04/27/18 09:32 Ipratropium [place] (Atrovent) 500 mcg Q4HRT HHN 04/27/18 11:00 05/02/18 10:59 04/27/18 10:45 Isoniazid (Inh) 300 mg DAILY ORAL 04/27/18 09:00 05/27/18 08:59 04/27/18 09:00 Levetiracetam 100 ml @ 400 mls/hr Q12H IVPB 04/27/18 13:00 05/27/18 12:59 04/27/18 13:16 Lorazepam (Ativan 2mg/ml 1ml) 2 mg Q1H PRN IV For Seizures 04/27/18 12:30 05/04/18 12:29 04/27/18 12:39 Multivitamins Therapeutic (Therapeutic Multivitamin) 1 ea DAILY ORAL 04/27/18 09:00 05/27/18 08:59 04/27/18 09:27 Pyrazinamide (Pza) 1,000 mg DAILY ORAL 04/27/18 09:00 05/27/18 08:59 04/27/18 09:28 Pyridoxine HCl (Vitamin B6) 50 mg DAILY ORAL 04/27/18 09:00 05/27/18 08:59 04/27/18 09:28 Rifampin (Rifadin) 600 mg DAILY ORAL 04/27/18 09:00 05/27/18 08:59 04/27/18 09:28 Sennosides (Senokot) 2 tab BID PRN GT Constipation 04/26/18 23:15 05/26/18 23:14 Sodium Chloride 1,000 ml @ 75 mls/hr [id number] IV 04/27/18 01:30 05/27/18 01:29 04/27/18 13:00 Tamsulosin HCl (Flomax) 0.4 mg BEDTIME ORAL 04/27/18 21:00 05/27/18 20:59 Nakul Cisse MD Apr 27, 2018 15:34
[2018-04-27] MEDS ORDERED: Sennosides 8.6mg GT PRN (18:30)
[2018-04-27] MEDS: Tamsulosin 0.4mg cap ORAL SCH (20:56)
[2018-04-27] MEDS: Heparin 5000 units/ml inj SUBQ SCH (20:57)
[2018-04-27] MEDS ORDERED: Tamsulosin 0.4mg cap ORAL SCH (21:00)
[2018-04-27] MEDS ORDERED: Atorvastatin 20mg tab ORAL SCH ×2 (21:00)
[2018-04-27] MEDS: LORazepam Inj 2mg/ml 1ml IV PRN (22:37)
[2018-04-28] VITALS (24 sets, daily range): BP systolic 128–182; BP diastolic 66–99
[2018-04-28] MEDS: levETIRAcetam 500mg/NS100ml 100 ML IVPB SCH ×2 (00:49→13:05)
--- NOTE | 2018-04-28 01:00 | Progress Note ---
DATE: 04/27/2018 CARDIOLOGY PROGRESS NOTE SUBJECTIVE: The patient remains in the intensive care unit. Ventilator support via tracheostomy. Monitored rhythm sinus and sinus tachycardia. Condition remains critical. OBJECTIVE: VITAL SIGNS: Blood pressure 132/73, pulse 102, respirations 20, and temperature 99.5 degrees, presently on T-collar. LUNGS: Coarse breath sounds. Scattered rhonchi. HEART: Regular rhythm. Rapid rate. Normal S1 and S2. ABDOMEN: Soft. EXTREMITIES: Trace edema. LABORATORY AND DIAGNOSTIC DATA: White count 7.8 and hemoglobin 8.6. Sodium 138, potassium 4.1, bicarbonate 24, BUN 23 and creatinine 0.5. Lactic acid normal. Albumin 1.9. CK 36. Total cholesterol 117. IMPRESSION: 1. Respiratory failure. 2. Severe sepsis. 3. Chronic encephalopathy. 4. Hypoxia. 5. Hypertensive heart disease. 6. Chronic diastolic congestive heart failure. 7. Hypovolemia and dehydration, improved. PLAN: 1. Respiratory therapy. 2. Trach care. 3. Antimicrobials. 4. Volume support. 5. Monitor acid-base parameters. 6. Nutrition by feeding tube. 7. No need for midodrine at this time. 8. Decrease statin dosing. Jones Arauz M.D. DR: LUDA JOB#: [id number] CC:
[2018-04-28] MEDS: Ipratropium 0.02% Inh Soln 2.5ml UD HHN SCH ×6 (03:08→22:49)
[2018-04-28] MEDS: Docusate 100mg/10ml Liq ORAL SCH (08:51)
[2018-04-28] MEDS: Isoniazid 300mg tab ORAL SCH (08:52)
[2018-04-28] MEDS: Pyridoxine 50mg tab ORAL SCH (08:52)
[2018-04-28] MEDS: Multivitamin w/Minerals tab ORAL SCH (08:53)
[2018-04-28] MEDS: Heparin 5000 units/ml inj SUBQ SCH ×2 (08:55→21:28)
[2018-04-28] MEDS ORDERED: Aspirin Baby 81mg ORAL SCH (09:00)
[2018-04-28 09:18] LABS: HEMATOCRIT 28.2 % (42.0-52.0); HEMOGLOBIN 8.8 G/DL (14.2-18.0); MEAN CORPUSCULAR VOLUME 77 FL (80-99); PLATELET COUNT 227 K/UL (150-450); RED BLOOD COUNT 3.69 M/UL (4.70-6.10); RED CELL DISTRIBUTION WIDTH 18.2 % (11.6-14.8); WHITE BLOOD COUNT 9.5 K/UL (4.8-10.8)
[2018-04-28 09:46] LABS: ALANINE AMINOTRANSFERASE 21 U/L (12-78); ALBUMIN 1.9 G/DL (3.4-5.0); ALBUMIN/GLOBULIN RATIO 0.4 (1.0-2.7); ALKALINE PHOSPHATASE 389 U/L (46-116); ANION GAP 7 mmol/L (5-15); ASPARTATE AMINO TRANSFERASE 61 U/L (15-37); BILIRUBIN,TOTAL 0.4 MG/DL (0.2-1.0); BLOOD UREA NITROGEN 23 mg/dL (7-18); CALCIUM 9.1 MG/DL (8.5-10.1); CARBON DIOXIDE 24 MMOL/L (21-32); CHLORIDE 108 MMOL/L (98-107); CREATININE 0.5 MG/DL (0.55-1.30); POTASSIUM 4.7 MMOL/L (3.5-5.1); SODIUM 139 MMOL/L (136-145)
--- NOTE | 2018-04-28 13:30 | Consultation ---
DATE OF CONSULTATION: 04/28/2018 INFECTIOUS DISEASES CONSULTATION CONSULTING PHYSICIAN: Sergio Urban M.D. REFERRING PHYSICIAN: Jarrod Vásquez M.D. REASON FOR CONSULTATION: Possible sepsis and tuberculosis. HISTORY OF PRESENTING ILLNESS: This is a 72-year-old gentleman with history of stroke, encephalopathy, respiratory failure, status post tracheostomy, and recently diagnosed pulmonary tuberculosis at [facility], who comes in because he had increasingly lethargicness and he was poorly responsive. An Infectious Diseases consultation has been obtained for antibiotics. PAST MEDICAL HISTORY: 1. History of stroke. 2. Encephalopathy. 3. Respiratory failure, status post tracheostomy. 4. History of recently diagnosed pulmonary tuberculosis. 5. Status post G-tube placement. SOCIAL HISTORY: No history of smoking, alcohol, or drug use. FAMILY HISTORY: Unknown. REVIEW OF SYSTEMS: Unable to obtain currently. MEDICATIONS: As an inpatient, the patient is on Lipitor, clonidine, aspirin, Colace, ethambutol, Pepcid, isoniazid, multivitamin, , rifampin, pyrazinamide, Zofran, levetiracetam, subcutaneous heparin, Flomax, Atrovent, Tylenol, lorazepam, and Senokot. ALLERGIES: No known drug allergies. PHYSICAL EXAMINATION: VITAL SIGNS: Temperature of 99.1, T-max of 103.2, pulse 108, respiratory rate 20, blood pressure 165/85, and O2 saturation of 100%. HEENT: Pupils equally reactive to light and accommodation. Mouth appears clean without thrush. NECK: Supple. No adenopathy. No JVD. CARDIOVASCULAR: Regular rate and rhythm. No murmurs. LUNGS: Clear to auscultation bilaterally. No crackles. No wheezes. ABDOMEN: Soft and not tender. No organomegaly. EXTREMITIES: No cyanosis, no clubbing, no edema. LABORATORY AND DIAGNOSTIC DATA: White count 9.5, hemoglobin 8.8, hematocrit 28.2, MCV 77, platelet count of 227, and neutrophils of 91%. Sodium 139, potassium 4.7, chloride 108, bicarb 24, BUN 23, creatinine 0.5, glucose 77, calcium 9.1. Total bilirubin 0.4. AST 61, ALT 21, and alkaline phosphatase 389. Total protein 7.1. Albumin 1.9. Cholesterol of 117. UA showing 2 to 4 white cells. Blood cultures are negative so far. Chest x-ray is showing mild right lower lung atelectasis. ASSESSMENT: 1. This is a 72-year-old gentleman with history of respiratory failure, status post tracheostomy, encephalopathy, stroke, as well as recently diagnosed tuberculosis, who comes in with increasing lethargicness, would be concerned regarding an underlying pneumonia as a possibility. 2. Pulmonary tuberculosis. PLAN: 1. Continue isoniazid, rifampin, ethambutol, pyrazinamide, and . 2. We will start the patient on Zosyn. 3. We will order urine cultures and sputum cultures. 4. We will follow up cultures and adjust antibiotics accordingly. I would like to thank, Dr. Vásquez, for this consultation. Sergio Urban M.D. DR: LIZETT JOB#: [id number] CC: Jarrod Vásquez M.D.
[2018-04-28] MEDS: LORazepam Inj 2mg/ml 1ml IV PRN (14:15)
[2018-04-28] MEDS ORDERED: Metoprolol 5mg/5ml Inj IVP SCH (15:15)
[2018-04-28] MEDS ORDERED: Tubing IV Secondary IV ONE (15:37)
[2018-04-28] MEDS ORDERED: Sterile Water For Irrig 2000ml IRRIG ONE (15:37)
[2018-04-28] MEDS ORDERED: NS 275ml ONE (15:37)
[2018-04-28] MEDS ORDERED: Sterile Water Irrig 1000ml IRRIG ONE (15:37)
[2018-04-28 17:05] LABS: INR 1.1 (0.9-1.1)
[2018-04-28 17:09] LABS: ANION GAP 14 mmol/L (5-15); BLOOD UREA NITROGEN 19 mg/dL (7-18); CALCIUM 8.5 MG/DL (8.5-10.1); CARBON DIOXIDE 20 MMOL/L (21-32); CHLORIDE 104 MMOL/L (98-107); CREATININE 0.5 MG/DL (0.55-1.30); POTASSIUM 4.1 MMOL/L (3.5-5.1); SODIUM 138 MMOL/L (136-145)
[2018-04-28 17:25] LABS: ALANINE AMINOTRANSFERASE 22 U/L (12-78); ALBUMIN 1.9 G/DL (3.4-5.0); ALBUMIN/GLOBULIN RATIO 0.4 (1.0-2.7); ALKALINE PHOSPHATASE 367 U/L (46-116); ASPARTATE AMINO TRANSFERASE 52 U/L (15-37); BILIRUBIN,DIRECT 0.6 MG/DL (0.0-0.3); BILIRUBIN,TOTAL 1.1 MG/DL (0.2-1.0); CREATINE KINASE 48 U/L (26-308)
--- NOTE | 2018-04-28 18:38 | Operative Note - PDOC ---
Operative Note Operative Note Date of Operation/Procedure: Apr 28, 2018 Pre-op Diagnosis: Sepsis/Critical Care Procedure: left femoral central venous catheter insertion Post-op Diagnosis: same as pre-op Surgeon: diana Is Support Analyst: N/A Anesthesiologist: n/a Anesthesia: local Specimen: none Complications: none Condition: unstable Fluids: n/a Estimated Blood Loss: minimal Drains: none Implant(s) used?: No Indications for Procedure 72M with multiple medial comorbidities recently admitted to ICU for sepsis under medical care and management. Tachycardic, Hypertensive, extensive medical history and with poor venous access. Central venous catheter recommended and indicated. Consent obtained from family. Description of Procedure A time-out was completed verifying correct patient, procedure, site, positioning , and special equipment if applicable. The patient was placed supine position. The patients left groin was prepped and draped in sterile fashion. 1% Lidocaine was used to anesthetize the surrounding skin area. A triple lumen central venous catheter was introduced into the the left femoral vein using the Seldinger technique. Finder needle used to cannulate left femoral vein. Once venous blood aspirated the guide wire was passed over needle and needle removed. Small skin incision made and dilator used. The catheter was threaded smoothly over the guide wire and appropriate blood return was obtained. Each lumen of the catheter was evacuated of air and flushed with sterile saline. The catheter was then sutured in place to the skin and a sterile dressing applied. Perfusion to the extremity distal to the point of catheter insertion was checked and found to be adequate. Zev Candelaria Apr 28, 2018 18:38
--- NOTE | 2018-04-28 18:56 | General Progress Note ---
Assessment/Plan Problem List: (1) Status epilepticus ICD Codes: G40.901 - Epilepsy, unspecified, not intractable, with status epilepticus SNOMED: 062493156 (2) Encephalopathy acute ICD Codes: G93.40 - Encephalopathy, unspecified SNOMED: 87370372, 401307808 (3) Probable sepsis ICD Codes: A41.9 - Sepsis, unspecified organism SNOMED: 694052532 (4) Dementia ICD Codes: F03.90 - Unspecified dementia without behavioral disturbance SNOMED: 42383259 (5) Encephalopathy ICD Codes: G93.40 - Encephalopathy, unspecified SNOMED: 01470683 (6) Sepsis ICD Codes: A41.9 - Sepsis, unspecified organism SNOMED: 72056212 (7) Pulmonary tuberculosis ICD Codes: A15.0 - Tuberculosis of lung SNOMED: 171537695 (8) Dehydration ICD Codes: E86.0 - Dehydration SNOMED: 14594737 (9) Altered level of consciousness ICD Codes: R40.4 - Transient alteration of awareness SNOMED: 0919587 Status: deteriorating Assessment/Plan iv abx 4 tb meds follow up cultures sz rx neuro follow up CT head when stable full vent support resp rx monitor abg tube feeds cards follow up add b-cr ivf critical and guarded Subjective ROS Limited/Unobtainable: No Constitutional: Reports: malaise, weakness HEENT: Reports: no symptoms Cardiovascular: Reports: no symptoms Respiratory: Reports: no symptoms Gastrointestinal/Abdominal: Reports: no symptoms Genitourinary: Reports: no symptoms Neurologic/Psychiatric: Reports: pre-existing deficit, seizure Endocrine: Reports: no symptoms Hematologic/Lymphatic: Reports: no symptoms Allergies: Coded Allergies: No Known Allergies (Unverified , 01/27/17) All Systems: reviewed and negative except above Subjective doing poorly. no more szs. tachypneic. labile bp. mostly high. on szs rx, tb meds and iv abx. Objective Last 24 Hour Vital Signs Date Time Temp Pulse Resp B/P (MAP) Pulse Ox O2 Delivery O2 Flow Rate FiO2 04/28/18 18:09 121 38 50 04/28/18 18:00 122 45 163/85 (111) 100 04/28/18 17:00 128 41 158/90 (112) 100 04/28/18 16:21 120 28 100 T-piece 8.0 30 9/24/18 16:12 112 30 100 T-piece 8.0 30 04/28/18 16:01 98.1 110 47 148/81 (103) 100 98.1 04/28/18 16:00 30 04/28/18 16:00 117 04/28/18 16:00 T-piece 04/28/18 15:33 129 164/86 04/28/18 15:00 139 41 155/88 (110) 100 04/28/18 14:00 147 42 165/91 (115) 100 04/28/18 13:29 100.0 04/28/18 13:04 181/99 04/28/18 13:00 141 40 181/99 (126) 100 04/28/18 12:59 101.0 04/28/18 12:32 T-piece 8.0 30 04/28/18 12:32 100 T-piece 8.0 30 04/28/18 12:00 114 36 166/86 (112) 100 04/28/18 12:00 T-piece 04/28/18 12:00 115 04/28/18 11:17 108 20 100 T-piece 8.0 30 04/28/18 11:08 101 20 100 T-piece 8.0 30 04/28/18 11:00 106 31 165/85 (111) 99 04/28/18 10:49 170/89 04/28/18 10:00 107 29 159/77 (104) 100 04/28/18 09:00 103 32 160/79 (106) 100 04/28/18 08:00 99.1 100 29 157/83 (107) 100 99.1 04/28/18 08:00 100 04/28/18 08:00 T-piece 04/28/18 07:50 99 20 100 T-piece 8.0 30 04/28/18 07:42 100 T-piece 8.0 30 04/28/18 07:42 98 20 100 T-piece 8.0 30 04/28/18 07:42 T-piece 8.0 30 04/28/18 07:04 100 32 164/91 (115) 100 04/28/18 06:00 95 28 174/92 (119) 100 04/28/18 05:00 98 29 166/81 (109) 100 04/28/18 04:00 98.3 97 26 145/71 (95) 100 98.3 04/28/18 03:58 30 04/28/18 03:57 95 04/28/18 03:57 T-piece 04/28/18 03:08 102 20 100 T-piece 8.0 30 04/28/18 03:08 99 20 99 T-piece 8.0 30 04/28/18 03:00 95 28 144/72 (96) 100 04/28/18 02:03 107 24 135/66 (89) 100 04/28/18 01:20 T-piece 8.0 30 04/28/18 01:20 100 T-piece 8.0 30 04/28/18 01:03 98 27 142/74 (96) 100 04/28/18 01:00 30 04/28/18 00:59 T-piece 04/28/18 00:00 98.0 100 28 128/72 (90) 100 98.0 04/28/18 00:00 98 04/27/18 23:05 114 20 100 T-piece 8.0 30 04/27/18 23:01 101 20 100 T-piece 8.0 30 04/27/18 23:00 100 33 131/68 (89) 100 04/27/18 22:00 97 32 147/70 (95) 100 04/27/18 21:00 95 30 149/78 (101) 100 04/27/18 20:41 30 04/27/18 20:00 99.5 102 35 132/73 (92) 100 99.5 04/27/18 20:00 T-piece 04/27/18 20:00 99 T-piece 8.0 30 04/27/18 20:00 T-piece 8.0 30 04/27/18 20:00 112 20 100 T-piece 8.0 30 04/27/18 20:00 105 04/27/18 19:50 109 20 100 T-piece 8.0 30 04/27/18 19:00 110 32 122/65 (84) 100 Intake and Output 04/27/18 04/28/18 19:00 07:00 Intake Total 505 ml 1020 ml Output Total 255 ml 425 ml Balance 250 ml 595 ml Free Water 25 ml 30 ml IV Total 450 ml 675 ml Tube Feeding 30 ml 315 ml Output Urine Total 255 ml 425 ml Laboratory Tests 04/28/18 08:15: White Blood Count 9.5, Red Blood Count 3.69L, Hemoglobin 8.8L, Hematocrit 28.2L , Mean Corpuscular Volume 77L, Mean Corpuscular Hemoglobin 23.9L, Mean Corpuscular Hemoglobin Concent 31.3L, Red Cell Distribution Width 18.2H, Platelet Count 227, Mean Platelet Volume 5.4L, Neutrophils (%) (Auto) , Lymphocytes (%) (Auto) , Monocytes (%) (Auto) , Eosinophils (%) (Auto) , Basophils (%) (Auto) , Differential Total Cells Counted 100, Neutrophils % ( Manual) 91H, Lymphocytes % (Manual) 4L, Monocytes % (Manual) 5, Eosinophils % ( Manual) 0, Basophils % (Manual) 0, Band Neutrophils 0, Platelet Estimate Adequate, Platelet Morphology Normal, Hypochromasia 1+, Anisocytosis 1+, Sodium Level 139, Potassium Level 4.7, Chloride Level 108H, Carbon Dioxide Level 24, Anion Gap 7, Blood Urea Nitrogen 23H, Creatinine 0.5L, Estimat Glomerular Filtration Rate , Glucose Level 77, Calcium Level 9.1, Total Bilirubin 0.4, Aspartate Amino Transf (AST/SGOT) 61H, Alanine Aminotransferase (ALT/SGPT) 21, Alkaline Phosphatase 389H, Total Protein 7.1, Albumin 1.9L, Globulin 5.2, Albumin/Globulin Ratio 0.4L 04/28/18 15:40: Arterial Blood pH 7.437, Arterial Blood Partial Pressure CO2 29.1L, Arterial Blood Partial Pressure O2 58.9L, Arterial Blood HCO3 19.2L, Arterial Blood Oxygen Saturation 89.9L, Arterial Blood Base Excess -4.2, Derek Test Positive 04/28/18 16:40: Sodium Level 138, Potassium Level 4.1, Chloride Level 104, Carbon Dioxide Level 20L, Anion Gap 14, Blood Urea Nitrogen 19H, Creatinine 0.5L, Estimat Glomerular Filtration Rate , Glucose Level 91, Calcium Level 8.5, Total Bilirubin 1.1H, Aspartate Amino Transf (AST/SGOT) 52H, Alanine Aminotransferase (ALT/SGPT) 22, Alkaline Phosphatase 367H, Total Protein 6.8, Albumin 1.9L, Globulin 4.9, Albumin/Globulin Ratio 0.4L, Prothrombin Time 11.6H, Prothromb Time International Ratio 1.1, Activated Partial Thromboplast Time 41H, Lactic Acid Level 1.80, Direct Bilirubin 0.6H, Total Creatine Kinase 48 Height (Feet): 5 Height (Inches): 9.00 Weight (Pounds): 134 General Appearance: WD/WN, lethargic, cachetic, thin Neck: supple Cardiovascular: tachycardia Respiratory/Chest: chest wall non-tender, lungs clear, normal breath sounds Abdomen: normal bowel sounds, non tender, soft, no organomegaly Neurologic: unresponsive, aphasia Jarrod Vásquez MD Apr 28, 2018 18:56
--- NOTE | 2018-04-28 20:37 | Pulmonology Progress Note ---
Assessment/Plan Assessment/Plan IMPRESSION respiratory failure possible sepsis chronic encephalopathy trach debility hypoxemia htn metabolic acidosis tachypnea PLAN care noted IV antibiotics respiratory care vent support aspiration precautions supportive care consider replacing of bicar suction as neded follow clinically oxygen therapy monitor hemodynamics prognosis guarded medications/laboratory data/nursing notes/ICU care reviewed in detail note reviewed and edited care discussed with RN and RT ICU time spent 42 minutes Subjective ROS Limited/Unobtainable: Yes Allergies: Coded Allergies: No Known Allergies (Unverified , 01/27/17) Subjective care discussed seen earlier overall tachypneic repeat visit and now on vent Objective Last 24 Hour Vital Signs Date Time Temp Pulse Resp B/P (MAP) Pulse Ox O2 Delivery O2 Flow Rate FiO2 04/28/18 19:14 123 36 100 T-piece 8.0 30 04/28/18 19:14 124 35 100 T-piece 8.0 30 04/28/18 19:12 123 36 50 04/28/18 19:00 127 35 149/76 (100) 100 04/28/18 18:09 121 38 50 04/28/18 18:00 122 45 163/85 (111) 100 04/28/18 17:00 128 41 158/90 (112) 100 04/28/18 16:21 120 28 100 T-piece 8.0 30 04/28/18 16:12 112 30 100 T-piece 8.0 30 04/28/18 16:01 98.1 110 47 148/81 (103) 100 98.1 04/28/18 16:00 30 04/28/18 16:00 117 04/28/18 16:00 T-piece 04/28/18 15:33 129 164/86 04/28/18 15:00 139 41 155/88 (110) 100 04/28/18 14:00 147 42 165/91 (115) 100 04/28/18 13:29 100.0 04/28/18 13:04 181/99 04/28/18 13:00 141 40 181/99 (126) 100 04/28/18 12:59 101.0 04/28/18 12:32 T-piece 8.0 30 04/28/18 12:32 100 T-piece 8.0 30 04/28/18 12:00 100.0 114 36 166/86 (112) 100 100.0 04/28/18 12:00 T-piece 04/28/18 12:00 115 04/28/18 11:17 108 20 100 T-piece 8.0 30 04/28/18 11:08 101 20 100 T-piece 8.0 30 04/28/18 11:00 106 31 165/85 (111) 99 04/28/18 10:49 170/89 04/28/18 10:00 107 29 159/77 (104) 100 04/28/18 09:00 103 32 160/79 (106) 100 04/28/18 08:00 99.1 100 29 157/83 (107) 100 99.1 04/28/18 08:00 100 04/28/18 08:00 T-piece 04/28/18 07:50 99 20 100 T-piece 8.0 30 04/28/18 07:42 100 T-piece 8.0 30 04/28/18 07:42 98 20 100 T-piece 8.0 30 04/28/18 07:42 T-piece 8.0 30 04/28/18 07:04 100 32 164/91 (115) 100 04/28/18 06:00 95 28 174/92 (119) 100 04/28/18 05:00 98 29 166/81 (109) 100 04/28/18 04:00 98.3 97 26 145/71 (95) 100 98.3 04/28/18 03:58 30 04/28/18 03:57 95 04/28/18 03:57 T-piece 04/28/18 03:08 102 20 100 T-piece 8.0 30 04/28/18 03:08 99 20 99 T-piece 8.0 30 04/28/18 03:00 95 28 144/72 (96) 100 04/28/18 02:03 107 24 135/66 (89) 100 04/28/18 01:20 T-piece 8.0 30 04/28/18 01:20 100 T-piece 8.0 30 04/28/18 01:03 98 27 142/74 (96) 100 04/28/18 01:00 30 04/28/18 00:59 T-piece 04/28/18 00:00 98.0 100 28 128/72 (90) 100 98.0 04/28/18 00:00 98 04/27/18 23:05 114 20 100 T-piece 8.0 30 04/27/18 23:01 101 20 100 T-piece 8.0 30 04/27/18 23:00 100 33 131/68 (89) 100 04/27/18 22:00 97 32 147/70 (95) 100 04/27/18 21:00 95 30 149/78 (101) 100 04/27/18 20:41 30 Intake and Output 04/27/18 04/28/18 19:00 07:00 Intake Total 505 ml 1020 ml Output Total 255 ml 425 ml Balance 250 ml 595 ml Free Water 25 ml 30 ml IV Total 450 ml 675 ml Tube Feeding 30 ml 315 ml Output Urine Total 255 ml 425 ml Objective WDWN poorly responsive moderatebreath sounds bilaterally without rhonchi or wheeze [id number] without MRG NABS nontender no HSM; gt no CCE cachectic poor response to pain skin noted Microbiology Date/Time Source Procedure Growth Status 04/26/18 20:20 Blood Blood Culture - Preliminary NO GROWTH AFTER 24 HOURS Resulted 04/26/18 20:15 Blood Blood Culture - Preliminary NO GROWTH AFTER 24 HOURS Resulted 04/26/18 21:45 Rectum Received Laboratory Tests 04/28/18 08:15: White Blood Count 9.5, Red Blood Count 3.69L, Hemoglobin 8.8L, Hematocrit 28.2L , Mean Corpuscular Volume 77L, Mean Corpuscular Hemoglobin 23.9L, Mean Corpuscular Hemoglobin Concent 31.3L, Red Cell Distribution Width 18.2H, Platelet Count 227, Mean Platelet Volume 5.4L, Neutrophils (%) (Auto) , Lymphocytes (%) (Auto) , Monocytes (%) (Auto) , Eosinophils (%) (Auto) , Basophils (%) (Auto) , Differential Total Cells Counted 100, Neutrophils % ( Manual) 91H, Lymphocytes % (Manual) 4L, Monocytes % (Manual) 5, Eosinophils % ( Manual) 0, Basophils % (Manual) 0, Band Neutrophils 0, Platelet Estimate Adequate, Platelet Morphology Normal, Hypochromasia 1+, Anisocytosis 1+, Sodium Level 139, Potassium Level 4.7, Chloride Level 108H, Carbon Dioxide Level 24, Anion Gap 7, Blood Urea Nitrogen 23H, Creatinine 0.5L, Estimat Glomerular Filtration Rate , Glucose Level 77, Calcium Level 9.1, Total Bilirubin 0.4, Aspartate Amino Transf (AST/SGOT) 61H, Alanine Aminotransferase (ALT/SGPT) 21, Alkaline Phosphatase 389H, Total Protein 7.1, Albumin 1.9L, Globulin 5.2, Albumin/Globulin Ratio 0.4L 04/28/18 15:40: Arterial Blood pH 7.437, Arterial Blood Partial Pressure CO2 29.1L, Arterial Blood Partial Pressure O2 58.9L, Arterial Blood HCO3 19.2L, Arterial Blood Oxygen Saturation 89.9L, Arterial Blood Base Excess -4.2, Derek Test Positive 04/28/18 16:40: Sodium Level 138, Potassium Level 4.1, Chloride Level 104, Carbon Dioxide Level 20L, Anion Gap 14, Blood Urea Nitrogen 19H, Creatinine 0.5L, Estimat Glomerular Filtration Rate , Glucose Level 91, Calcium Level 8.5, Total Bilirubin 1.1H, Aspartate Amino Transf (AST/SGOT) 52H, Alanine Aminotransferase (ALT/SGPT) 22, Alkaline Phosphatase 367H, Total Protein 6.8, Albumin 1.9L, Globulin 4.9, Albumin/Globulin Ratio 0.4L, Prothrombin Time 11.6H, Prothromb Time International Ratio 1.1, Activated Partial Thromboplast Time 41H, Lactic Acid Level 1.80, Direct Bilirubin 0.6H, Total Creatine Kinase 48 Current Medications Medications (Trade) Dose Ordered Sig/Iram Route PRN Reason Start Time Stop Time Status Last Admin Dose Admin Acetaminophen (Tylenol) 650 mg Q4H PRN ORAL Fever/Headache/Mild Pain 04/27/18 18:30 05/26/18 18:29 04/28/18 12:59 Aspirin (ASA) 81 mg DAILY ORAL 04/28/18 09:00 05/27/18 08:59 04/28/18 08:51 Atorvastatin Calcium (Lipitor) 10 mg BEDTIME GT 04/28/18 21:00 05/28/18 20:59 Clonidine HCl (Catapres Tab) 0.1 mg Q4H PRN ORAL SBP >160 04/28/18 11:00 05/28/18 10:59 04/28/18 10:49 Docusate Sodium (Colace) 100 mg DAILY ORAL 04/28/18 09:00 05/27/18 08:59 04/28/18 08:51 Ethambutol HCl (Myambutol) 800 mg DAILY ORAL 04/28/18 09:00 05/27/18 08:59 04/28/18 08:52 Famotidine (Pepcid) 20 mg DAILY ORAL 04/28/18 09:00 05/27/18 08:59 04/28/18 08:53 Heparin Sodium (Porcine) (Heparin 5000 units/ml) 5,000 units EVERY 12 HOURS SUBQ 04/27/18 21:00 05/27/18 08:59 04/28/18 08:55 Hydralazine HCl (Apresoline) 10 mg Q4H PRN IV SBP >160 04/28/18 13:00 05/28/18 12:59 04/28/18 13:04 Ipratropium Bodega (Atrovent) 500 mcg Q4HRT HHN 04/27/18 19:00 05/02/18 10:59 04/28/18 18:58 Isoniazid (Inh) 300 mg DAILY ORAL 04/28/18 09:00 05/27/18 08:59 04/28/18 08:52 Levetiracetam 100 ml @ 400 mls/hr Q12H IVPB 04/28/18 01:00 05/27/18 12:59 04/28/18 13:05 Lorazepam (Ativan 2mg/ml 1ml) 2 mg Q1H PRN IV For Seizures 04/27/18 18:30 05/04/18 12:29 04/28/18 14:15 Metoprolol Tartrate (Lopressor) 50 mg Q12HR GT 04/28/18 21:00 05/28/18 20:59 Multivitamins Therapeutic (Therapeutic Multivitamin) 1 ea DAILY ORAL 04/28/18 09:00 05/27/18 08:59 04/28/18 08:53 Ondansetron HCl (Zofran) 4 mg Q6H PRN IVP Nausea & Vomiting 04/28/18 08:30 05/28/18 08:29 04/28/18 08:54 Piperacillin Sod/ Tazobactam Sod 3.375 gm/Dextrose 100 ml @ 25 mls/hr EVERY 8 HOURS IV 04/28/18 14:00 05/03/18 13:59 04/28/18 14:35 Pyrazinamide (Pza) 1,000 mg DAILY ORAL 04/28/18 09:00 05/28/18 08:59 04/28/18 08:51 Pyridoxine HCl (Vitamin B6) 50 mg DAILY ORAL 04/28/18 09:00 05/27/18 08:59 04/28/18 08:52 Rifampin (Rifadin) 600 mg DAILY ORAL 04/28/18 09:00 05/27/18 08:59 04/28/18 08:53 Sennosides (Senokot) 2 tab BIDPRN PRN GT Constipation 04/27/18 18:30 05/27/18 18:29 Sodium Chloride 1,000 ml @ 125 mls/hr Q8H IV 04/28/18 16:30 05/27/18 16:29 04/28/18 16:44 Tamsulosin HCl (Flomax) 0.4 mg BEDTIME ORAL 04/27/18 21:00 05/27/18 20:59 04/27/18 20:56 Nakul Cisse MD Apr 28, 2018 20:37
[2018-04-28] MEDS: Tamsulosin 0.4mg cap ORAL SCH (21:25)
[2018-04-28] MEDS: Atorvastatin 20mg tab GT SCH (21:26)
[2018-04-28] MEDS: Metoprolol Tartrate 50mg tab GT SCH (21:26)
--- NOTE | 2018-04-28 21:31 | Consultation ---
Consult Note Consult Note NEUROLOGY CONSULTATION: Full note dictated #[id number] 72 y/o, EM of ?H who does have a PH of a stroke, pulmonary TB, chronic respiratory failure with a tracheostomy, dysphagia for which he has a G-Tube, who lives in a [place]. He was noted to more lethargic than his baseline and was thus brought to the [facility] ER on 04/27/18 and admitted. Following that he spiked a fever to 103 and had multiple seizures. He was given Ativan, cooled down and given Keppra and since then his seizures have resolved. At this time he is poorly responsive. ON EXAM: Arouses but is non-verbal. Corneal reflex decreased on right. Quadriparesis R>L Responds to DP less on R. DTRs decreased. Plantars extensor bilaterally. 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 REC: EEG Repeat CT of brain. Continue Keppra but give 750 mg q 12 H. Observe. Mercedes Coelho M.D., M.S.P.MERCEDES BERMUDEZ Apr 28, 2018 21:31
--- NOTE | 2018-04-28 22:00 | Progress Note ---
DATE: 04/28/2018 CARDIOLOGY PROGRESS NOTE SUBJECTIVE: The patient remains on ventilator support with labile blood pressure, rapid heart rates, frequently sinus tachycardia. Monitored congestion is noted. OBJECTIVE: VITAL SIGNS: Blood pressure 163/85, pulse 122, respiratory rate 45, afebrile and T-max is 101 degrees. LUNGS: Coarse breath sounds with rhonchi. HEART: Regular rhythm. Rapid rate. Normal S1 and S2. ABDOMEN: Soft. EXTREMITIES: With trace edema. Trach site with thin secretions. LABORATORY AND DIAGNOSTIC DATA: White count 9.5 and hemoglobin 8.8. Sodium 138, potassium 4.1, bicarbonate 20, BUN 19, and creatinine 0.5. Lactic acid 1.8. Albumin 1.9. ABG, 7.43, 29 and 58. IMPRESSION: 1. Respiratory failure. 2. Tracheostomy. 3. Hypoxia. 4. Healthcare acquired pneumonia. 5. Secondary sinus tachycardia. 6. Poor peripheral access. 7. Status post triple lumen in the left femoral region. 8. Anemia. 9. Remains critical and guarded. 10. Severe sepsis. 11. Chronic diastolic congestive heart failure. 12. Labile hypertension. PLAN: 1. Respiratory hygiene. 2. Antimicrobials. 3. Trach care. 4. Monitor acid-base parameters. 5. Increased oxygenation. 6. Agree with beta-cr therapy. Jones Arauz M.D. DR: LUDA JOB#: [id number] CC:
--- NOTE | 2018-04-28 23:15 | Consultation ---
DATE OF CONSULTATION: 04/28/2018 NEUROLOGY CONSULTATION CONSULTING PHYSICIAN: Krunal Coelho M.D. REQUESTING PHYSICIAN: Jarrod Vásquez M.D. HISTORY: Mr. Sagar Narvaez is a 72-year-old, [place] gentleman, of unknown handedness, who does have a past history of a stroke, pulmonary tuberculosis, chronic respiratory failure for which he has a tracheostomy, dysphagia for which he has a G-tube placed, and severe chronic debility as a result of which he lives in a fpc. He was functioning relatively well at his fpc until 04/27/2018. He was brought into the [facility] emergency room for change in mental state where he became poorly responsive. He was watched on the telemetry unit where he spiked a fever to 103 degrees Fahrenheit and then had multiple seizures. He was given Ativan, cooled down and started on Keppra and since then, he has been seizure-free. At this point in time, he is poorly responsive and unable to communicate in any manner. PAST MEDICAL HISTORY: Significant for stroke in the near past, pulmonary tuberculosis, chronic respiratory failure with a tracheostomy, and dysphagia with G-tube placement. FAMILY HISTORY: Nothing significant as per the chart. PERSONAL HISTORY: Home: He lives in fpc. Work: He is unemployed. Habits: None at this point in time. PRESENT MEDICATIONS: atorvastatin, metoprolol, Zosyn, hydralazine, clonidine, aspirin, DSS, ethambutol, famotidine, isoniazid, multivitamins, vitamin B6, rifampin, pyrazinamide, Zofran p.r.n., and Keppra 500 mg q.12 hours. PHYSICAL EXAMINATION: GENERAL: He is a well-developed, ill-looking black gentleman, lying in an ICU bed, in no acute distress. VITAL SIGNS: Pulse 122/minute, blood pressure 149/76 mmHg, respirations 36/minute, temperature 98.1 degrees Fahrenheit. HEAD: Normocephalic and atraumatic. EENT: Examination benign. NECK: No neck rigidity was observed. NEUROLOGICAL EXAMINATION: MENTAL STATUS EXAMINATION: He did arouse on deep painful stimulation, but was nonverbal. He was unable to follow any commands and unable to communicate in any manner. SPEECH: Could not be tested. LANGUAGE: Could not be tested. CRANIAL NERVE EXAMINATION: II: When aroused, he did blink to threat. III, IV & : External ocular movements were present on oculocephalic maneuvers. The pupils were 3 mm in diameter, equal, round, regular, and reactive sluggishly to light. V & VII: The corneal reflexes were present bilaterally. However, the right-sided reflex was significantly diminished compared to the left. VIII: He seemed to be able to hear and had no nystagmus. IX & X: Gag reflex was suppressed. XI: The sternocleidomastoids and trapezii functioned minimally. XII: The tongue was in the midline. MOTOR SYSTEM: The tone was increased in all four extremities with spasticity more marked on the right than on the left. Examination of muscle mass revealed generalized muscle wasting, again more marked on the right than on the left. Examination of power was impossible to perform on individual muscle groups. However, he did move all four extremities on deep pain with possibly right greater than left-sided weakness. SENSORY EXAMINATION: He responded appropriately to deep pain with less vigorous responses on the right side compared to the left. REFLEXES: Trace+ and bilaterally symmetrical at the biceps, triceps, brachioradialis. 0 at both knees and ankles. The plantar responses were extensor bilaterally. COORDINATION, STANCE & GAIT: Could not be tested. DIAGNOSTIC IMPRESSION: 1. Mr. Sagar Narvaez is a 72-year-old, [place] gentleman, of unknown handedness, who does have a past history of cerebrovascular disease with a prior stroke, pulmonary tuberculosis, chronic respiratory failure for which he has tracheostomy, and dysphagia for which he has a gastrostomy; who lives in fpc where he was noted to have an alteration in his mental state in the form of increased lethargy. He was thus brought into the [facility] emergency room and following admission, he apparently spiked a fever to 103 degrees Fahrenheit followed by multiple seizures. He was cooled down, given Ativan and started on Keppra and has been seizure-free since then. 2. On neurological examination, at this time, he arouses only on deep pain and is nonverbal. His corneal reflex is diminished on the right side compared to the left. 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 In addition, he responds to deep pain, less on the right than on the left. His deep tendon reflexes are globally diminished and his plantar responses are extensor bilaterally. 3. Laboratory data obtained thus far have revealed that his WBC count is creeping up from 4.4 to 9.5. He is significantly anemic with a hemoglobin of 8.8 G. His chemistry panel reveals that his bilirubin is elevated to 1.1. His alkaline phosphatase is elevated to 367, his AST is elevated to 52. His albumin is low at 1.9. His arterial blood gas reveals a pCO2 of 29 and a pO2 of 59 with a pH of 7.43. His urinalysis reveals 2+ leukocyte esterase with 2-4 RBCs and 2-4 WBCs per high-power field. 4. 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 RECOMMENDATIONS: 1. Agree with management thus far. 2. Would continue Keppra, but increase the dose to 750 mg q.12 hours. 3. An EEG will be ordered to evaluate the patient for ongoing ictal or interictal phenomena. 4. Repeat CT scan of the brain will be ordered for tomorrow morning. 5. Depending on how the patient fairs over the next day or so, further recommendations will be given. Thank you for entrusting me with the care Mr. Narvaez. I shall follow him with you. Krunal Coelho M.D., M.S.P.H. DR: ISRAEL JOB#: [id number] [facility]ATRIC HOSPITALMarybel
[2018-04-29] VITALS (24 sets, daily range): BP systolic 113–157; BP diastolic 50–87
[2018-04-29] MEDS: levETIRAcetam 750 MG in D5W 95 ML IV SCH ×3 (01:04→21:03)
[2018-04-29] MEDS: Ipratropium 0.02% Inh Soln 2.5ml UD HHN SCH ×6 (03:00→23:25)
[2018-04-29 05:44] LABS: HEMATOCRIT 24.6 % (42.0-52.0); HEMOGLOBIN 7.8 G/DL (14.2-18.0); MEAN CORPUSCULAR VOLUME 76 FL (80-99); PLATELET COUNT 236 K/UL (150-450); RED BLOOD COUNT 3.23 M/UL (4.70-6.10); RED CELL DISTRIBUTION WIDTH 18.4 % (11.6-14.8); WHITE BLOOD COUNT 11.7 K/UL (4.8-10.8)
[2018-04-29 06:05] LABS: ALANINE AMINOTRANSFERASE 19 U/L (12-78); ALBUMIN 1.6 G/DL (3.4-5.0); ALBUMIN/GLOBULIN RATIO 0.4 (1.0-2.7); ALKALINE PHOSPHATASE 304 U/L (46-116); ANION GAP 16 mmol/L (5-15); ASPARTATE AMINO TRANSFERASE 49 U/L (15-37); BILIRUBIN,TOTAL 0.7 MG/DL (0.2-1.0); BLOOD UREA NITROGEN 21 mg/dL (7-18); CALCIUM 8.1 MG/DL (8.5-10.1); CARBON DIOXIDE 19 MMOL/L (21-32); CHLORIDE 103 MMOL/L (98-107); CREATININE 0.5 MG/DL (0.55-1.30); POTASSIUM 2.9 MMOL/L (3.5-5.1); SODIUM 138 MMOL/L (136-145)
--- NOTE | 2018-04-29 06:07 | General Progress Note ---
Assessment/Plan Problem List: (1) Status epilepticus ICD Codes: G40.901 - Epilepsy, unspecified, not intractable, with status epilepticus SNOMED: 000179513 (2) Encephalopathy acute ICD Codes: G93.40 - Encephalopathy, unspecified SNOMED: 52846390, 811153423 (3) Probable sepsis ICD Codes: A41.9 - Sepsis, unspecified organism SNOMED: 419421309 (4) Dementia ICD Codes: F03.90 - Unspecified dementia without behavioral disturbance SNOMED: 66248783 (5) Encephalopathy ICD Codes: G93.40 - Encephalopathy, unspecified SNOMED: 42125767 (6) Sepsis ICD Codes: A41.9 - Sepsis, unspecified organism SNOMED: 71085663 (7) Pulmonary tuberculosis ICD Codes: A15.0 - Tuberculosis of lung SNOMED: 626066005 (8) Dehydration ICD Codes: E86.0 - Dehydration SNOMED: 43861000 (9) Altered level of consciousness ICD Codes: R40.4 - Transient alteration of awareness SNOMED: 3871639 Status: stable, progressing Assessment/Plan vent support resp rx dc heparin and asa for now GI eval abx per ID TB rx sz rx per neuro IVF monitor HR b-blockade Subjective ROS Limited/Unobtainable: Yes Constitutional: Reports: malaise, weakness HEENT: Reports: no symptoms Cardiovascular: Reports: no symptoms Respiratory: Reports: sputum Gastrointestinal/Abdominal: Reports: difficulty swallowing Genitourinary: Reports: no symptoms Neurologic/Psychiatric: Reports: pre-existing deficit, seizure Endocrine: Reports: no symptoms Hematologic/Lymphatic: Reports: anemia Allergies: Coded Allergies: No Known Allergies (Unverified , 01/27/17) All Systems: reviewed and negative except above Subjective better since back on the vent. HR better controlled. metoprolol started last night. Vomiting blood clot. +bloody secretions when suctioned. Objective Last 24 Hour Vital Signs Date Time Temp Pulse Resp B/P (MAP) Pulse Ox O2 Delivery O2 Flow Rate FiO2 04/29/18 05:29 112 31 50 04/29/18 03:17 Mechanical Ventilator 50 04/29/18 03:16 Mechanical Ventilator 50 04/29/18 03:00 98.5 105 38 136/71 (92) 100 98.5 04/29/18 02:50 112 37 50 04/29/18 02:00 99.2 109 36 135/78 (97) 100 99.2 04/29/18 01:00 100.0 112 40 143/64 (90) 100 100.0 04/29/18 00:56 112 30 50 04/29/18 00:00 108 04/29/18 00:00 50 04/29/18 00:00 Mechanical Ventilator 04/29/18 00:00 99.2 108 33 133/58 (83) 100 99.2 04/28/18 23:00 98.6 103 38 182/92 (122) 100 98.6 04/28/18 22:56 101 36 100 Mechanical Ventilator 50 04/28/18 22:50 101 35 100 Mechanical Ventilator 50 04/28/18 22:49 101 29 50 04/28/18 22:00 105 41 173/88 (116) 100 04/28/18 21:26 126 178/97 04/28/18 21:00 102 36 175/88 (117) 100 04/28/18 20:47 122 35 50 04/28/18 20:00 50 04/28/18 20:00 Mechanical Ventilator 04/28/18 20:00 122 04/28/18 20:00 100.3 123 36 169/81 (110) 100 100.3 04/28/18 19:14 123 36 100 Mechanical Ventilator 50 04/28/18 19:14 124 35 100 Mechanical Ventilator 50 04/28/18 19:12 123 36 50 04/28/18 19:00 127 35 149/76 (100) 100 04/28/18 18:09 121 38 50 04/28/18 18:00 122 45 163/85 (111) 100 04/28/18 17:00 128 41 158/90 (112) 100 04/28/18 16:21 120 28 100 T-piece 8.0 30 04/28/18 16:12 112 30 100 T-piece 8.0 30 04/28/18 16:01 98.1 110 47 148/81 (103) 100 98.1 04/28/18 16:00 30 04/28/18 16:00 117 04/28/18 16:00 T-piece 04/28/18 15:33 129 164/86 04/28/18 15:00 139 41 155/88 (110) 100 04/28/18 14:00 147 42 165/91 (115) 100 04/28/18 13:29 100.0 04/28/18 13:04 181/99 04/28/18 13:00 141 40 181/99 (126) 100 04/28/18 12:59 101.0 04/28/18 12:32 T-piece 8.0 30 04/28/18 12:32 100 T-piece 8.0 30 04/28/18 12:00 100.0 114 36 166/86 (112) 100 100.0 04/28/18 12:00 T-piece 04/28/18 12:00 115 04/28/18 11:17 108 20 100 T-piece 8.0 30 04/28/18 11:08 101 20 100 T-piece 8.0 30 04/28/18 11:00 106 31 165/85 (111) 99 04/28/18 10:49 170/89 04/28/18 10:00 107 29 159/77 (104) 100 04/28/18 09:00 103 32 160/79 (106) 100 04/28/18 08:00 99.1 100 29 157/83 (107) 100 99.1 04/28/18 08:00 100 04/28/18 08:00 T-piece 04/28/18 07:50 99 20 100 T-piece 8.0 30 04/28/18 07:42 100 T-piece 8.0 30 04/28/18 07:42 98 20 100 T-piece 8.0 30 04/28/18 07:42 T-piece 8.0 30 04/28/18 07:04 100 32 164/91 (115) 100 Intake and Output 04/28/18 04/29/18 19:00 07:00 Intake Total 1415 ml 1617.5 ml Output Total 1300 ml 855 ml Balance 115 ml 762.5 ml IV Total 1280 ml 1547.5 ml Tube Feeding 135 ml Other 70 ml Output Urine Total 1300 ml 855 ml Laboratory Tests 04/28/18 08:15: White Blood Count 9.5, Red Blood Count 3.69L, Hemoglobin 8.8L, Hematocrit 28.2L , Mean Corpuscular Volume 77L, Mean Corpuscular Hemoglobin 23.9L, Mean Corpuscular Hemoglobin Concent 31.3L, Red Cell Distribution Width 18.2H, Platelet Count 227, Mean Platelet Volume 5.4L, Neutrophils (%) (Auto) , Lymphocytes (%) (Auto) , Monocytes (%) (Auto) , Eosinophils (%) (Auto) , Basophils (%) (Auto) , Differential Total Cells Counted 100, Neutrophils % ( Manual) 91H, Lymphocytes % (Manual) 4L, Monocytes % (Manual) 5, Eosinophils % ( Manual) 0, Basophils % (Manual) 0, Band Neutrophils 0, Platelet Estimate Adequate, Platelet Morphology Normal, Hypochromasia 1+, Anisocytosis 1+, Sodium Level 139, Potassium Level 4.7, Chloride Level 108H, Carbon Dioxide Level 24, Anion Gap 7, Blood Urea Nitrogen 23H, Creatinine 0.5L, Estimat Glomerular Filtration Rate , Glucose Level 77, Calcium Level 9.1, Total Bilirubin 0.4, Aspartate Amino Transf (AST/SGOT) 61H, Alanine Aminotransferase (ALT/SGPT) 21, Alkaline Phosphatase 389H, Total Protein 7.1, Albumin 1.9L, Globulin 5.2, Albumin/Globulin Ratio 0.4L 04/28/18 15:40: Arterial Blood pH 7.437, Arterial Blood Partial Pressure CO2 29.1L, Arterial Blood Partial Pressure O2 58.9L, Arterial Blood HCO3 19.2L, Arterial Blood Oxygen Saturation 89.9L, Arterial Blood Base Excess -4.2, Derek Test Positive 04/28/18 16:40: Sodium Level 138, Potassium Level 4.1, Chloride Level 104, Carbon Dioxide Level 20L, Anion Gap 14, Blood Urea Nitrogen 19H, Creatinine 0.5L, Estimat Glomerular Filtration Rate , Glucose Level 91, Calcium Level 8.5, Total Bilirubin 1.1H, Aspartate Amino Transf (AST/SGOT) 52H, Alanine Aminotransferase (ALT/SGPT) 22, Alkaline Phosphatase 367H, Total Protein 6.8, Albumin 1.9L, Globulin 4.9, Albumin/Globulin Ratio 0.4L, Prothrombin Time 11.6H, Prothromb Time International Ratio 1.1, Activated Partial Thromboplast Time 41H, Lactic Acid Level 1.80, Direct Bilirubin 0.6H, Total Creatine Kinase 48 04/29/18 04:00: White Blood Count 11.7H, Red Blood Count 3.23L, Hemoglobin 7.8L, Hematocrit 24.6L, Mean Corpuscular Volume 76L, Mean Corpuscular Hemoglobin 24.2L, Mean Corpuscular Hemoglobin Concent 31.9L, Red Cell Distribution Width 18.4H, Platelet Count 236, Mean Platelet Volume 5.1L, Neutrophils (%) (Auto) , Lymphocytes (%) (Auto) , Monocytes (%) (Auto) , Eosinophils (%) (Auto) , Basophils (%) (Auto) , Neutrophils % (Manual) [Pending], Lymphocytes % (Manual) [Pending], Platelet Estimate [Pending], Platelet Morphology [Pending], Sodium Level [Pending], Potassium Level [Pending], Chloride Level [Pending], Carbon Dioxide Level [Pending], Blood Urea Nitrogen [Pending], Creatinine [Pending], Estimat Glomerular Filtration Rate [Pending], Glucose Level [Pending], Calcium Level [Pending], Total Bilirubin [Pending], Aspartate Amino Transf (AST/SGOT) [ Pending], Alanine Aminotransferase (ALT/SGPT) [Pending], Alkaline Phosphatase [ Pending], Total Protein [Pending], Albumin [Pending], Globulin [Pending], Troponin I [Pending] Height (Feet): 5 Height (Inches): 9.00 Weight (Pounds): 134 General Appearance: WD/WN, cachetic, thin Neck: supple Cardiovascular: tachycardia Respiratory/Chest: rhonchi - bilaterally Abdomen: normal bowel sounds, non tender, soft, no organomegaly Edema: no edema noted Arm (L), no edema noted Arm (R), no edema noted Leg (L), no edema noted Leg (R), no edema noted Pedal (L), no edema noted Pedal (R), no edema noted Generalized Jarrod Vásquez MD Apr 29, 2018 06:07
[2018-04-29] MEDS: D5NS 1,000 ML IV SCH ×2 (06:58→17:07)
--- NOTE | 2018-04-29 08:41 | Diagnostic Imaging Report ---
Indication: Shortness of breath Technique: One view of the chest Comparison: 04/26/2018 Findings: Left hemidiaphragm is obscured, may indicate some pleural fluid and/or parenchymal consolidation/atelectasis. Questionable right infrahilar opacity, not evident previously, may be an artifact of different rotation. Lungs and pleural spaces are otherwise clear. Heart size is normal. There is a tracheostomy Impression: Possible developing pleural and/or parenchymal disease at the left lung base, possible developing right infrahilar parenchymal disease, over 2 days Other findings as noted This agrees with the preliminary interpretation provided overnight by [facility] teleradiology service.
[2018-04-29] MEDS: Multivitamin w/Minerals tab ORAL SCH (08:57)
[2018-04-29] MEDS: Isoniazid 300mg tab ORAL SCH (08:57)
[2018-04-29] MEDS: Pyridoxine 50mg tab ORAL SCH (08:57)
[2018-04-29] MEDS: Docusate 100mg/10ml Liq ORAL SCH (08:57)
[2018-04-29] MEDS: Pantoprazole Inj IVP SCH ×2 (08:57→21:03)
[2018-04-29] MEDS: Metoprolol Tartrate 50mg tab GT SCH ×2 (08:58→21:04)
--- NOTE | 2018-04-29 12:49 | Pulmonology Progress Note ---
Assessment/Plan Assessment/Plan IMPRESSION respiratory failure possible sepsis chronic encephalopathy trach debility hypoxemia htn metabolic acidosis tachypnea, improved PLAN care noted IV antibiotics reviewed respiratory care discussed vent support for now aspiration precautions supportive care as outlined monitor acid base suction as neded follow clinically for change oxygen therapy monitor hemodynamics prognosis guarded medications/laboratory data/nursing notes/ICU care reviewed in detail note reviewed and edited care discussed with RN and RT ICU time spent 38 minutes Subjective ROS Limited/Unobtainable: Yes Allergies: Coded Allergies: No Known Allergies (Unverified , 01/27/17) Subjective care discussed seen earlier more comfortable on vent Objective Last 24 Hour Vital Signs Date Time Temp Pulse Resp B/P (MAP) Pulse Ox O2 Delivery O2 Flow Rate FiO2 04/29/18 11:50 78 18 100 Mechanical Ventilator 50 04/29/18 11:49 77 18 50 04/29/18 11:00 81 23 127/59 (81) 100 04/29/18 10:00 80 20 125/57 (79) 100 04/29/18 09:16 101 32 50 04/29/18 09:00 101 25 131/60 (83) 100 04/29/18 08:58 102 113/50 04/29/18 08:00 Mechanical Ventilator 04/29/18 08:00 99.0 97 21 113/50 (71) 100 99.0 04/29/18 08:00 97 21 113/50 (71) 100 04/29/18 08:00 99 04/29/18 07:16 101 23 100 Mechanical Ventilator 50 04/29/18 07:05 103 28 100 Mechanical Ventilator 50 04/29/18 07:05 103 28 50 04/29/18 07:00 98.9 101 15 121/56 (77) 100 98.9 04/29/18 06:00 99.2 110 31 146/73 (97) 100 99.2 04/29/18 05:29 112 31 50 04/29/18 05:00 100.1 101 35 133/62 (85) 100 100.1 04/29/18 04:00 105 04/29/18 04:00 Mechanical Ventilator 04/29/18 04:00 99.0 105 30 141/76 (97) 100 99.0 04/29/18 03:17 Mechanical Ventilator 50 04/29/18 03:16 Mechanical Ventilator 50 04/29/18 03:00 98.5 105 38 136/71 (92) 100 98.5 04/29/18 02:50 112 37 50 04/29/18 02:00 99.2 109 36 135/78 (97) 100 99.2 04/29/18 01:00 100.0 112 40 143/64 (90) 100 100.0 04/29/18 00:56 112 30 50 04/29/18 00:00 108 04/29/18 00:00 50 04/29/18 00:00 Mechanical Ventilator 04/29/18 00:00 99.2 108 33 133/58 (83) 100 99.2 04/28/18 23:00 98.6 103 38 182/92 (122) 100 98.6 04/28/18 22:56 101 36 100 Mechanical Ventilator 50 04/28/18 22:50 101 35 100 Mechanical Ventilator 50 04/28/18 22:49 101 29 50 04/28/18 22:00 105 41 173/88 (116) 100 04/28/18 21:26 126 178/97 04/28/18 21:00 102 36 175/88 (117) 100 04/28/18 20:47 122 35 50 04/28/18 20:00 50 04/28/18 20:00 Mechanical Ventilator 04/28/18 20:00 122 04/28/18 20:00 100.3 123 36 169/81 (110) 100 100.3 04/28/18 19:14 123 36 100 Mechanical Ventilator 50 04/28/18 19:14 124 35 100 Mechanical Ventilator 50 04/28/18 19:12 123 36 50 04/28/18 19:00 127 35 149/76 (100) 100 04/28/18 18:09 121 38 50 04/28/18 18:00 122 45 163/85 (111) 100 04/28/18 17:00 128 41 158/90 (112) 100 04/28/18 16:21 120 28 100 T-piece 8.0 30 04/28/18 16:12 112 30 100 T-piece 8.0 30 04/28/18 16:01 98.1 110 47 148/81 (103) 100 98.1 04/28/18 16:00 30 04/28/18 16:00 117 04/28/18 16:00 T-piece 9/24/18 15:33 129 164/86 9/24/18 15:00 139 41 155/88 (110) 100 04/28/18 14:00 147 42 165/91 (115) 100 04/28/18 13:29 100.0 04/28/18 13:04 181/99 04/28/18 13:00 141 40 181/99 (126) 100 04/28/18 12:59 101.0 Intake and Output 04/28/18 04/29/18 19:00 07:00 Intake Total 1415 ml 2012.5 ml Output Total 1300 ml 1215 ml Balance 115 ml 797.5 ml IV Total 1280 ml 1922.5 ml Tube Feeding 135 ml Other 90 ml Output Urine Total 1300 ml 1215 ml Objective WDWN poorly responsive moderate breath sounds bilaterally without rhonchi or wheeze [id number] without MRG NABS nontender no HSM; gt no CCE cachectic poor response to pain skin noted appears more comfortable Microbiology Date/Time Source Procedure Growth Status 04/26/18 20:20 Blood Blood Culture - Preliminary NO GROWTH AFTER 48 HOURS Resulted 04/26/18 20:15 Blood Blood Culture - Preliminary NO GROWTH AFTER 48 HOURS Resulted 04/26/18 21:45 Nasal Nares MRSA Culture - Final NO METHICILLIN RESISTANT STAPH AUREUS... Complete 04/28/18 15:00 Urine,Clean Catch Urine Culture - Preliminary Resulted 04/26/18 22:45 Rectum VRE Culture - Final Enterococcus Faecium - Vre Complete 04/26/18 21:45 Rectum - Final NO CARBAPENEM-RESISTANT ENTEROBACTERI... Complete Laboratory Tests 04/28/18 15:40: Arterial Blood pH 7.437, Arterial Blood Partial Pressure CO2 29.1L, Arterial Blood Partial Pressure O2 58.9L, Arterial Blood HCO3 19.2L, Arterial Blood Oxygen Saturation 89.9L, Arterial Blood Base Excess -4.2, Derek Test Positive 04/28/18 16:40: Prothrombin Time 11.6H, Prothromb Time International Ratio 1.1, Activated Partial Thromboplast Time 41H, Sodium Level 138, Potassium Level 4.1, Chloride Level 104, Carbon Dioxide Level 20L, Anion Gap 14, Blood Urea Nitrogen 19H, Creatinine 0.5L, Estimat Glomerular Filtration Rate , Glucose Level 91, Lactic Acid Level 1.80, Calcium Level 8.5, Total Bilirubin 1.1H, Direct Bilirubin 0.6H , Aspartate Amino Transf (AST/SGOT) 52H, Alanine Aminotransferase (ALT/SGPT) 22 , Alkaline Phosphatase 367H, Total Creatine Kinase 48, Total Protein 6.8, Albumin 1.9L, Globulin 4.9, Albumin/Globulin Ratio 0.4L 04/29/18 04:00: Sodium Level 138, Potassium Level 2.9L, Chloride Level 103, Carbon Dioxide Level 19L, Anion Gap 16H, Blood Urea Nitrogen 21H, Creatinine 0.5L, Estimat Glomerular Filtration Rate , Glucose Level 63L, Calcium Level 8.1L, Total Bilirubin 0.7, Aspartate Amino Transf (AST/SGOT) 49H, Alanine Aminotransferase ( ALT/SGPT) 19, Alkaline Phosphatase 304H, Total Protein 6.0L, Albumin 1.6L, Globulin 4.4, Albumin/Globulin Ratio 0.4L, White Blood Count 11.7H, Red Blood Count 3.23L, Hemoglobin 7.8L, Hematocrit 24.6L, Mean Corpuscular Volume 76L, Mean Corpuscular Hemoglobin 24.2L, Mean Corpuscular Hemoglobin Concent 31.9L, Red Cell Distribution Width 18.4H, Platelet Count 236, Mean Platelet Volume 5.1L , Neutrophils (%) (Auto) , Lymphocytes (%) (Auto) , Monocytes (%) (Auto) , Eosinophils (%) (Auto) , Basophils (%) (Auto) , Differential Total Cells Counted 100, Neutrophils % (Manual) 96H, Lymphocytes % (Manual) 2L, Monocytes % (Manual) 2, Eosinophils % (Manual) 0, Basophils % (Manual) 0, Band Neutrophils 0 , Platelet Estimate Adequate, Platelet Morphology Normal, Hypochromasia 3+, Anisocytosis 2+, Microcytosis 1+, Troponin I 0.131H Current Medications Medications (Trade) Dose Ordered Sig/Iram Route PRN Reason Start Time Stop Time Status Last Admin Dose Admin Acetaminophen (Tylenol) 650 mg Q4H PRN ORAL Fever/Headache/Mild Pain 04/27/18 18:30 05/26/18 18:29 04/28/18 12:59 Atorvastatin Calcium (Lipitor) 10 mg BEDTIME GT 04/28/18 21:00 05/28/18 20:59 04/28/18 21:26 Clonidine HCl (Catapres Tab) 0.1 mg Q4H PRN ORAL SBP >160 04/28/18 11:00 05/28/18 10:59 04/28/18 10:49 Dextrose/Sodium Chloride 1,000 ml @ 100 mls/hr Q10H IV 04/29/18 07:00 05/29/18 06:59 04/29/18 06:58 Docusate Sodium (Colace) 100 mg DAILY ORAL 04/28/18 09:00 05/27/18 08:59 04/29/18 08:57 Ethambutol HCl (Myambutol) 800 mg DAILY ORAL 04/28/18 09:00 05/27/18 08:59 04/29/18 08:58 Hydralazine HCl (Apresoline) 10 mg Q4H PRN IV SBP >160 04/28/18 13:00 05/28/18 12:59 04/28/18 13:04 Ipratropium [place] (Atrovent) 500 mcg Q4HRT HHN 04/27/18 19:00 05/02/18 10:59 04/29/18 11:49 Isoniazid (Inh) 300 mg DAILY ORAL 04/28/18 09:00 05/27/18 08:59 04/29/18 08:57 Levetiracetam 750 mg/Dextrose 102.5 ml @ 440 mls/hr Q12HR IV 04/29/18 01:00 05/29/18 00:59 04/29/18 10:04 Lorazepam (Ativan 2mg/ml 1ml) 2 mg Q1H PRN IV For Seizures 04/27/18 18:30 05/04/18 12:29 04/28/18 14:15 Metoprolol Tartrate (Lopressor) 50 mg Q12HR GT 04/28/18 21:00 05/28/18 20:59 04/29/18 08:58 Multivitamins Therapeutic (Therapeutic Multivitamin) 1 ea DAILY ORAL 04/28/18 09:00 05/27/18 08:59 04/29/18 08:57 Ondansetron HCl (Zofran) 4 mg Q6H PRN IVP Nausea & Vomiting 04/28/18 08:30 05/28/18 08:29 04/28/18 08:54 Pantoprazole (Protonix) 40 mg EVERY 12 HOURS IVP 9/25/18 09:00 05/29/18 08:59 04/29/18 08:57 Piperacillin Sod/ Tazobactam Sod 3.375 gm/Dextrose 100 ml @ 25 mls/hr EVERY 8 HOURS IV 04/28/18 14:00 05/03/18 13:59 04/29/18 06:28 Potassium Chloride 100 ml @ 50 mls/hr Q2H IVPB 04/29/18 09:30 04/29/18 13:29 04/29/18 10:18 Pyrazinamide (Pza) 1,000 mg DAILY ORAL 04/28/18 09:00 05/28/18 08:59 04/29/18 08:58 Pyridoxine HCl (Vitamin B6) 50 mg DAILY ORAL 04/28/18 09:00 05/27/18 08:59 04/29/18 08:57 Rifampin (Rifadin) 600 mg DAILY ORAL 04/28/18 09:00 05/27/18 08:59 04/29/18 08:57 Sennosides (Senokot) 2 tab BIDPRN PRN GT Constipation 04/27/18 18:30 05/27/18 18:29 Tamsulosin HCl (Flomax) 0.4 mg BEDTIME ORAL 04/27/18 21:00 05/27/18 20:59 04/28/18 21:25 Nakul Cisse MD Apr 29, 2018 12:49
--- NOTE | 2018-04-29 13:35 | Diagnostic Imaging Report ---
Indication: Abnormal liver function tests, abnormal renal function tests Technique: Colon-scale and duplex images of the upper abdomen were obtained Comparison: 02/27/2018 Findings: Gallbladder is surgically absent. Common bile duct measures 5 mm in diameter. No intrahepatic biliary ductal dilatation. Liver demonstrates normal echogenicity, no focal abnormality. Surface micronodularity is again noted. Portal vein and hepatic veins are patent. Pancreas is unremarkable. Spleen is borderline enlarged, measuring 13.1 cm long axis dimension Left kidney measures 12.2 cm in length. Right kidney measures 10.6 cm length. Both kidneys demonstrate normal echogenicity. There is no hydronephrosis. There are renal cysts on the left. Small amount of ascites fluid is demonstrated. There are bilateral pleural effusions. Abdominal aorta is partially obscured by bowel gas, visualized portions are non-aneurysmal . The prostate is enlarged, calculated volume 66 mL. A Manzo catheter is demonstrated within an empty bladder. Impression: Surgically absent gallbladder. Negative for dilated ducts Hepatic surface nodularity, suggestive of cirrhosis, also previously described Trace ascites, also previously described, may indicate portal hypertension Splenomegaly Bilateral pleural effusions Left renal cysts Prostatomegaly
--- NOTE | 2018-04-29 13:42 | Infectious Diseases Prog Note ---
Assessment/Plan Assessment/Plan A; Fever improving Pulmonary TB AMS VDRF VRE colozation history of CVA P; Continue Zosyn Continue TB treatment with RIPE will f/u cultures Subjective ROS Limited/Unobtainable: Yes Constitutional: Reports: fever, other - decreased HEENT: Reports: other - bleeding from nose yesterday Respiratory: Reports: productive cough, other - hemoptysis Allergies: Coded Allergies: No Known Allergies (Unverified , 01/27/17) Objective Vital Signs Last 24 Hour Vital Signs Date Time Temp Pulse Resp B/P (MAP) Pulse Ox O2 Delivery O2 Flow Rate FiO2 04/29/18 13:00 74 21 133/61 (85) 100 04/29/18 12:00 78 04/29/18 12:00 76 15 138/66 (90) 100 04/29/18 12:00 Mechanical Ventilator 04/29/18 11:50 78 18 100 Mechanical Ventilator 50 04/29/18 11:49 77 18 50 04/29/18 11:00 81 23 127/59 (81) 100 04/29/18 10:00 80 20 125/57 (79) 100 04/29/18 09:16 101 32 50 04/29/18 09:00 101 25 131/60 (83) 100 04/29/18 08:58 102 113/50 04/29/18 08:00 Mechanical Ventilator 04/29/18 08:00 99.0 97 21 113/50 (71) 100 99.0 04/29/18 08:00 97 21 113/50 (71) 100 04/29/18 08:00 99 04/29/18 07:16 101 23 100 Mechanical Ventilator 50 04/29/18 07:05 103 28 100 Mechanical Ventilator 50 04/29/18 07:05 103 28 50 04/29/18 07:00 98.9 101 15 121/56 (77) 100 98.9 04/29/18 06:00 99.2 110 31 146/73 (97) 100 99.2 04/29/18 05:29 112 31 50 04/29/18 05:00 100.1 101 35 133/62 (85) 100 100.1 04/29/18 04:00 105 04/29/18 04:00 Mechanical Ventilator 04/29/18 04:00 99.0 105 30 141/76 (97) 100 99.0 04/29/18 03:17 Mechanical Ventilator 50 04/29/18 03:16 Mechanical Ventilator 50 04/29/18 03:00 98.5 105 38 136/71 (92) 100 98.5 04/29/18 02:50 112 37 50 04/29/18 02:00 99.2 109 36 135/78 (97) 100 99.2 04/29/18 01:00 100.0 112 40 143/64 (90) 100 100.0 04/29/18 00:56 112 30 50 04/29/18 00:00 108 04/29/18 00:00 50 04/29/18 00:00 Mechanical Ventilator 04/29/18 00:00 99.2 108 33 133/58 (83) 100 99.2 04/28/18 23:00 98.6 103 38 182/92 (122) 100 98.6 04/28/18 22:56 101 36 100 Mechanical Ventilator 50 04/28/18 22:50 101 35 100 Mechanical Ventilator 50 04/28/18 22:49 101 29 50 04/28/18 22:00 105 41 173/88 (116) 100 04/28/18 21:26 126 178/97 04/28/18 21:00 102 36 175/88 (117) 100 04/28/18 20:47 122 35 50 04/28/18 20:00 50 04/28/18 20:00 Mechanical Ventilator 04/28/18 20:00 122 04/28/18 20:00 100.3 123 36 169/81 (110) 100 100.3 04/28/18 19:14 123 36 100 Mechanical Ventilator 50 04/28/18 19:14 124 35 100 Mechanical Ventilator 50 04/28/18 19:12 123 36 50 04/28/18 19:00 127 35 149/76 (100) 100 04/28/18 18:09 121 38 50 04/28/18 18:00 122 45 163/85 (111) 100 04/28/18 17:00 128 41 158/90 (112) 100 04/28/18 16:21 120 28 100 T-piece 8.0 30 04/28/18 16:12 112 30 100 T-piece 8.0 30 04/28/18 16:01 98.1 110 47 148/81 (103) 100 98.1 04/28/18 16:00 30 04/28/18 16:00 117 04/28/18 16:00 T-piece 04/28/18 15:33 129 164/86 04/28/18 15:00 139 41 155/88 (110) 100 04/28/18 14:00 147 42 165/91 (115) 100 Height (Feet): 5 Height (Inches): 9.00 Weight (Pounds): 135 HEENT: status post trach Respiratory/Chest: lungs clear, other - on ventilator Cardiovascular: normal rate Abdomen: soft, non tender, other - GT feeding Extremities: no edema Neurologic/Psychiatric: other - lethargic Microbiology Date/Time Source Procedure Growth Status 04/26/18 20:20 Blood Blood Culture - Preliminary NO GROWTH AFTER 48 HOURS Resulted 04/26/18 20:15 Blood Blood Culture - Preliminary NO GROWTH AFTER 48 HOURS Resulted 04/26/18 21:45 Nasal Nares MRSA Culture - Final NO METHICILLIN RESISTANT STAPH AUREUS... Complete 04/28/18 15:00 Urine,Clean Catch Urine Culture - Preliminary Resulted 04/26/18 22:45 Rectum VRE Culture - Final Enterococcus Faecium - Vre Complete 04/26/18 21:45 Rectum - Final NO CARBAPENEM-RESISTANT ENTEROBACTERI... Complete Laboratory Tests Test 04/28/18 15:40 04/28/18 16:40 04/29/18 04:00 Arterial Blood pH 7.437 (7.350-7.450) Arterial Blood Partial Pressure CO2 29.1 mmHg (35.0-45.0) L Arterial Blood Partial Pressure O2 58.9 mmHg (75.0-100.0) L Arterial Blood HCO3 19.2 mmol/L (22.0-26.0) L Arterial Blood Oxygen Saturation 89.9 % (92.0-98.0) L Arterial Blood Base Excess -4.2 Derek Test Positive Prothrombin Time 11.6 SEC (9.30-11.50) H Prothromb Time International Ratio 1.1 (0.9-1.1) Activated Partial Thromboplast Time 41 SEC (23-33) H Sodium Level 138 MMOL/L (136-145) 138 MMOL/L (136-145) Potassium Level 4.1 MMOL/L (3.5-5.1) 2.9 MMOL/L (3.5-5.1) L Chloride Level 104 MMOL/L (98-107) 103 MMOL/L (98-107) Carbon Dioxide Level 20 MMOL/L (21-32) L 19 MMOL/L (21-32) L Anion Gap 14 mmol/L (5-15) 16 mmol/L (5-15) H Blood Urea Nitrogen 19 mg/dL (7-18) H 21 mg/dL (7-18) H Creatinine 0.5 MG/DL (0.55-1.30) L 0.5 MG/DL (0.55-1.30) L Estimat Glomerular Filtration Rate mL/min (>60) mL/min (>60) Glucose Level 91 MG/DL (74-106) 63 MG/DL (74-106) L Lactic Acid Level 1.80 mmol/L (0.4-2.0) Calcium Level 8.5 MG/DL (8.5-10.1) 8.1 MG/DL (8.5-10.1) L Total Bilirubin 1.1 MG/DL (0.2-1.0) H 0.7 MG/DL (0.2-1.0) Direct Bilirubin 0.6 MG/DL (0.0-0.3) H Aspartate Amino Transf (AST/SGOT) 52 U/L (15-37) H 49 U/L (15-37) H Alanine Aminotransferase (ALT/SGPT) 22 U/L (12-78) 19 U/L (12-78) Alkaline Phosphatase 367 U/L (46-116) H 304 U/L (46-116) H Total Creatine Kinase 48 U/L (26-308) Total Protein 6.8 G/DL (6.4-8.2) 6.0 G/DL (6.4-8.2) L Albumin 1.9 G/DL (3.4-5.0) L 1.6 G/DL (3.4-5.0) L Globulin 4.9 g/dL 4.4 g/dL Albumin/Globulin Ratio 0.4 (1.0-2.7) L 0.4 (1.0-2.7) L White Blood Count 11.7 K/UL (4.8-10.8) H Red Blood Count 3.23 M/UL (4.70-6.10) L Hemoglobin 7.8 G/DL (14.2-18.0) L Hematocrit 24.6 % (42.0-52.0) L Mean Corpuscular Volume 76 FL (80-99) L Mean Corpuscular Hemoglobin 24.2 PG (27.0-31.0) L Mean Corpuscular Hemoglobin Concent 31.9 G/DL (32.0-36.0) L Red Cell Distribution Width 18.4 % (11.6-14.8) H Platelet Count 236 K/UL (150-450) Mean Platelet Volume 5.1 FL (6.5-10.1) L Neutrophils (%) (Auto) % (45.0-75.0) Lymphocytes (%) (Auto) % (20.0-45.0) Monocytes (%) (Auto) % (1.0-10.0) Eosinophils (%) (Auto) % (0.0-3.0) Basophils (%) (Auto) % (0.0-2.0) Differential Total Cells Counted 100 Neutrophils % (Manual) 96 % (45-75) H Lymphocytes % (Manual) 2 % (20-45) L Monocytes % (Manual) 2 % (1-10) Eosinophils % (Manual) 0 % (0-3) Basophils % (Manual) 0 % (0-2) Band Neutrophils 0 % (0-8) Platelet Estimate Adequate Platelet Morphology Normal Hypochromasia 3+ Anisocytosis 2+ Microcytosis 1+ Troponin I 0.131 ng/mL (0.000-0.056) Current Medications Medications (Trade) Dose Ordered Sig/Iram Route PRN Reason Start Time Stop Time Status Last Admin Dose Admin Acetaminophen (Tylenol) 650 mg Q4H PRN ORAL Fever/Headache/Mild Pain 04/27/18 18:30 05/26/18 18:29 04/28/18 12:59 Atorvastatin Calcium (Lipitor) 10 mg BEDTIME GT 04/28/18 21:00 05/28/18 20:59 04/28/18 21:26 Clonidine HCl (Catapres Tab) 0.1 mg Q4H PRN ORAL SBP >160 04/28/18 11:00 05/28/18 10:59 04/28/18 10:49 Dextrose/Sodium Chloride 1,000 ml @ 100 mls/hr Q10H IV 04/29/18 07:00 05/29/18 06:59 04/29/18 06:58 Docusate Sodium (Colace) 100 mg DAILY ORAL 04/28/18 09:00 05/27/18 08:59 04/29/18 08:57 Ethambutol HCl (Myambutol) 800 mg DAILY ORAL 04/28/18 09:00 05/27/18 08:59 04/29/18 08:58 Hydralazine HCl (Apresoline) 10 mg Q4H PRN IV SBP >160 04/28/18 13:00 05/28/18 12:59 04/28/18 13:04 Ipratropium [place] (Atrovent) 500 mcg Q4HRT HHN 04/27/18 19:00 05/02/18 10:59 04/29/18 11:49 Isoniazid (Inh) 300 mg DAILY ORAL 04/28/18 09:00 05/27/18 08:59 04/29/18 08:57 Levetiracetam 750 mg/Dextrose 102.5 ml @ 440 mls/hr Q12HR IV 04/29/18 01:00 05/29/18 00:59 04/29/18 10:04 Lorazepam (Ativan 2mg/ml 1ml) 2 mg Q1H PRN IV For Seizures 04/27/18 18:30 05/04/18 12:29 04/28/18 14:15 Metoprolol Tartrate (Lopressor) 50 mg Q12HR GT 04/28/18 21:00 05/28/18 20:59 04/29/18 08:58 Multivitamins Therapeutic (Therapeutic Multivitamin) 1 ea DAILY ORAL 04/28/18 09:00 05/27/18 08:59 04/29/18 08:57 Ondansetron HCl (Zofran) 4 mg Q6H PRN IVP Nausea & Vomiting 04/28/18 08:30 05/28/18 08:29 04/28/18 08:54 Pantoprazole (Protonix) 40 mg EVERY 12 HOURS IVP 04/29/18 09:00 05/29/18 08:59 04/29/18 08:57 Piperacillin Sod/ Tazobactam Sod 3.375 gm/Dextrose 100 ml @ 25 mls/hr EVERY 8 HOURS IV 04/28/18 14:00 05/03/18 13:59 04/29/18 06:28 Pyrazinamide (Pza) 1,000 mg DAILY ORAL 04/28/18 09:00 05/28/18 08:59 04/29/18 08:58 Pyridoxine HCl (Vitamin B6) 50 mg DAILY ORAL 04/28/18 09:00 05/27/18 08:59 04/29/18 08:57 Rifampin (Rifadin) 600 mg DAILY ORAL 04/28/18 09:00 05/27/18 08:59 04/29/18 08:57 Sennosides (Senokot) 2 tab BIDPRN PRN GT Constipation 04/27/18 18:30 05/27/18 18:29 Tamsulosin HCl (Flomax) 0.4 mg BEDTIME ORAL 04/27/18 21:00 05/27/18 20:59 04/28/18 21:25 Rahul Shen MD Apr 29, 2018 13:42
[2018-04-29 15:01] LABS: BASOPHILS % (AUTO) 0.2 % (0.0-2.0); HEMATOCRIT 32.2 % (42.0-52.0); HEMOGLOBIN 10.1 G/DL (14.2-18.0); LYMPHOCYTES % (AUTO) 3.8 % (20.0-45.0); MEAN CORPUSCULAR VOLUME 77 FL (80-99); MONOCYTES % (AUTO) 12.5 % (1.0-10.0); NEUTROPHILS % (AUTO) 83.5 % (45.0-75.0); PLATELET COUNT 224 K/UL (150-450); RED BLOOD COUNT 4.18 M/UL (4.70-6.10); RED CELL DISTRIBUTION WIDTH 17.6 % (11.6-14.8); WHITE BLOOD COUNT 12.8 K/UL (4.8-10.8)
[2018-04-29] MEDS ORDERED: Tubing IV Secondary IV ONE (16:33)
--- NOTE | 2018-04-29 19:41 | Neurology Progress Note ---
Interim History Interim History Interim History Mr. Narvaez continues to be poorly responsive. There has been no improvement in his mental state. He continues to be seizure-free. He continues to be non-functional. Review of Systems Neuro Review of Systems Unable to obtain. Objective Physical Exam Last Vital Signs Date Time Temp Pulse Resp B/P (MAP) Pulse Ox O2 Delivery O2 Flow Rate FiO2 04/29/18 19:15 98 21 100 Mechanical Ventilator 30 04/29/18 18:00 157/74 (101) 04/29/18 16:00 99.4 99.4 04/28/18 19:14 Laboratory Tests Test 04/29/18 04:00 04/29/18 14:55 White Blood Count 11.7 K/UL (4.8-10.8) H 12.8 K/UL (4.8-10.8) H Red Blood Count 3.23 M/UL (4.70-6.10) L 4.18 M/UL (4.70-6.10) L Hemoglobin 7.8 G/DL (14.2-18.0) L 10.1 G/DL (14.2-18.0) L Hematocrit 24.6 % (42.0-52.0) L 32.2 % (42.0-52.0) #L Mean Corpuscular Volume 76 FL (80-99) L 77 FL (80-99) L Mean Corpuscular Hemoglobin 24.2 PG (27.0-31.0) L 24.1 PG (27.0-31.0) L Mean Corpuscular Hemoglobin Concent 31.9 G/DL (32.0-36.0) L 31.3 G/DL (32.0-36.0) L Red Cell Distribution Width 18.4 % (11.6-14.8) H 17.6 % (11.6-14.8) H Platelet Count 236 K/UL (150-450) 224 K/UL (150-450) Mean Platelet Volume 5.1 FL (6.5-10.1) L 4.9 FL (6.5-10.1) L Neutrophils (%) (Auto) % (45.0-75.0) 83.5 % (45.0-75.0) H Lymphocytes (%) (Auto) % (20.0-45.0) 3.8 % (20.0-45.0) L Monocytes (%) (Auto) % (1.0-10.0) 12.5 % (1.0-10.0) H Eosinophils (%) (Auto) % (0.0-3.0) 0.0 % (0.0-3.0) Basophils (%) (Auto) % (0.0-2.0) 0.2 % (0.0-2.0) Differential Total Cells Counted 100 Neutrophils % (Manual) 96 % (45-75) H Lymphocytes % (Manual) 2 % (20-45) L Monocytes % (Manual) 2 % (1-10) Eosinophils % (Manual) 0 % (0-3) Basophils % (Manual) 0 % (0-2) Band Neutrophils 0 % (0-8) Platelet Estimate Adequate Platelet Morphology Normal Hypochromasia 3+ Anisocytosis 2+ Microcytosis 1+ Sodium Level 138 MMOL/L (136-145) Potassium Level 2.9 MMOL/L (3.5-5.1) L Chloride Level 103 MMOL/L (98-107) Carbon Dioxide Level 19 MMOL/L (21-32) L Anion Gap 16 mmol/L (5-15) H Blood Urea Nitrogen 21 mg/dL (7-18) H Creatinine 0.5 MG/DL (0.55-1.30) L Estimat Glomerular Filtration Rate mL/min (>60) Glucose Level 63 MG/DL (74-106) L Calcium Level 8.1 MG/DL (8.5-10.1) L Total Bilirubin 0.7 MG/DL (0.2-1.0) Aspartate Amino Transf (AST/SGOT) 49 U/L (15-37) H Alanine Aminotransferase (ALT/SGPT) 19 U/L (12-78) Alkaline Phosphatase 304 U/L (46-116) H Troponin I 0.131 ng/mL (0.000-0.056) Total Protein 6.0 G/DL (6.4-8.2) L Albumin 1.6 G/DL (3.4-5.0) L Globulin 4.4 g/dL Albumin/Globulin Ratio 0.4 (1.0-2.7) L Neurologic Exam Objective PHYSICAL EXAMINATION: GENERAL: He is a well-developed, ill-looking black gentleman, lying in an ICU bed, in no acute distress. HEAD: Normocephalic and atraumatic. EENT: Examination benign. NECK: No neck rigidity was observed. NEUROLOGICAL EXAMINATION: MENTAL STATUS EXAMINATION: He did arouse on deep painful stimulation, but was nonverbal. He was unable to follow any commands and unable to communicate in any manner. SPEECH: Could not be tested. LANGUAGE: Could not be tested. CRANIAL NERVE EXAMINATION: II: When aroused, he did blink to threat. III, IV & : External ocular movements were present on oculocephalic maneuvers. The pupils were 3 mm in diameter, equal, round, regular, and reactive sluggishly to light. V & VII: The corneal reflexes were present bilaterally. However, the right- sided reflex was significantly diminished compared to the left. VIII: He seemed to be able to hear and had no nystagmus. IX & X: Gag reflex was suppressed. XI: The sternocleidomastoids and trapezii functioned minimally. XII: The tongue was in the midline. MOTOR SYSTEM: The tone was increased in all four extremities with spasticity more marked on the right than on the left. Examination of muscle mass revealed generalized muscle wasting, again more marked on the right than on the left. Examination of power was impossible to perform on individual muscle groups. However, he did move all four extremities on deep pain with possibly right greater than left-sided weakness. SENSORY EXAMINATION: He responded appropriately to deep pain with less vigorous responses on the right side compared to the left. REFLEXES: Trace+ and bilaterally symmetrical at the biceps, triceps, brachioradialis. 0 at both knees and ankles. The plantar responses were extensor bilaterally. COORDINATION, STANCE & GAIT: Could not be tested. Impression/Recommendations Diagnostic Impression 1. Mr. Sagar Narvaez is a 72-year-old, [place] gentleman, of unknown handedness, who does have a past history of cerebrovascular disease with a prior stroke, pulmonary tuberculosis, chronic respiratory failure for which he has tracheostomy, and dysphagia for which he has a gastrostomy; who lives in longterm where he was noted to have an alteration in his mental state in the form of increased lethargy. He was thus brought into the [facility] emergency room and following admission, he apparently spiked a fever to 103 degrees Fahrenheit followed by multiple seizures. He was cooled down, given Ativan and started on Keppra and has been seizure-free since then. 2. He continues to be poorly responsive. There has been no improvement in his mental state. He continues to be seizure-free. He continues to be non- functional. 3. On neurological examination, at this time, he arouses only on deep pain and is nonverbal. His corneal reflex is diminished on the right side compared to the left. 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 In addition, he responds to deep pain, less on the right than on the left. His deep tendon reflexes are globally diminished and his plantar responses are extensor bilaterally. 4. Laboratory data on my initial evaluation revealed that his WBC count is creeping up from 4.4 to 9.5. He is significantly anemic with a hemoglobin of 8.8 G. His chemistry panel reveals that his bilirubin is elevated to 1.1. His alkaline phosphatase is elevated to 367, his AST is elevated to 52. His albumin is low at 1.9. His arterial blood gas reveals a pCO2 of 29 and a pO2 of 59 with a pH of 7.43. His urinalysis reveals 2+ leukocyte esterase with 2-4 RBCs and 2-4 WBCs per high-power field. 5. The EEG done on 04/27/18 revealed a moderately severe encephalopathy and left > right hemispheric dysfunction. No inter-ictal discharges were seen. 6. 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 Recommendations 1. Continue present management. 2. Continue Keppra 750 mg q.12 hours. 3. Await brain CT 4. Observe closely. Mercedes Coelho M.D., M.S.P.H. MERCEDES COELHO Apr 29, 2018 19:41
--- NOTE | 2018-04-29 19:52 | General Progress Note ---
Assessment/Plan Assessment/Plan GI CONSULT ATSP for UGIB/Anemia Full note to follow Will schedule for EGD in am Thank you No Amaya MD Subjective Allergies: Coded Allergies: No Known Allergies (Unverified , 01/27/17) Objective Last 24 Hour Vital Signs Date Time Temp Pulse Resp B/P (MAP) Pulse Ox O2 Delivery O2 Flow Rate FiO2 04/29/18 19:15 98 21 100 Mechanical Ventilator 30 04/29/18 19:13 98 21 30 04/29/18 18:00 94 31 157/74 (101) 99 04/29/18 17:24 90 27 30 04/29/18 17:00 86 27 147/71 (96) 100 04/29/18 16:00 99.4 82 23 139/67 (91) 100 99.4 04/29/18 16:00 Mechanical Ventilator 04/29/18 16:00 86 04/29/18 15:27 83 28 100 Mechanical Ventilator 40 04/29/18 15:14 82 23 40 04/29/18 15:14 81 24 100 Mechanical Ventilator 40 04/29/18 15:00 81 24 142/68 (92) 100 04/29/18 14:00 79 22 138/67 (90) 99 04/29/18 13:40 79 28 50 04/29/18 13:00 74 21 133/61 (85) 100 04/29/18 12:01 100 21 100 Mechanical Ventilator 50 04/29/18 12:00 78 04/29/18 12:00 98.7 76 15 138/66 (90) 100 98.7 04/29/18 12:00 Mechanical Ventilator 04/29/18 11:50 78 18 100 Mechanical Ventilator 50 04/29/18 11:49 77 18 50 04/29/18 11:00 81 23 127/59 (81) 100 04/29/18 10:00 80 20 125/57 (79) 100 04/29/18 09:16 101 32 50 04/29/18 09:00 101 25 131/60 (83) 100 04/29/18 08:58 102 113/50 04/29/18 08:00 Mechanical Ventilator 04/29/18 08:00 99.0 97 21 113/50 (71) 100 99.0 04/29/18 08:00 97 21 113/50 (71) 100 04/29/18 08:00 99 04/29/18 07:16 101 23 100 Mechanical Ventilator 50 04/29/18 07:05 103 28 100 Mechanical Ventilator 50 04/29/18 07:05 103 28 50 04/29/18 07:00 98.9 101 15 121/56 (77) 100 98.9 04/29/18 06:00 99.2 110 31 146/73 (97) 100 99.2 04/29/18 05:29 112 31 50 04/29/18 05:00 100.1 101 35 133/62 (85) 100 100.1 04/29/18 04:00 105 04/29/18 04:00 Mechanical Ventilator 04/29/18 04:00 99.0 105 30 141/76 (97) 100 99.0 04/29/18 03:17 Mechanical Ventilator 50 04/29/18 03:16 Mechanical Ventilator 50 04/29/18 03:00 98.5 105 38 136/71 (92) 100 98.5 04/29/18 02:50 112 37 50 04/29/18 02:00 99.2 109 36 135/78 (97) 100 99.2 04/29/18 01:00 100.0 112 40 143/64 (90) 100 100.0 04/29/18 00:56 112 30 50 04/29/18 00:00 108 04/29/18 00:00 50 04/29/18 00:00 Mechanical Ventilator 04/29/18 00:00 99.2 108 33 133/58 (83) 100 99.2 04/28/18 23:00 98.6 103 38 182/92 (122) 100 98.6 04/28/18 22:56 101 36 100 Mechanical Ventilator 50 04/28/18 22:50 101 35 100 Mechanical Ventilator 50 04/28/18 22:49 101 29 50 04/28/18 22:00 105 41 173/88 (116) 100 04/28/18 21:26 126 178/97 04/28/18 21:00 102 36 175/88 (117) 100 04/28/18 20:47 122 35 50 04/28/18 20:00 50 04/28/18 20:00 Mechanical Ventilator 04/28/18 20:00 122 04/28/18 20:00 100.3 123 36 169/81 (110) 100 100.3 Intake and Output 04/28/18 04/29/18 19:00 07:00 Intake Total 1415 ml 2012.5 ml Output Total 1300 ml 1215 ml Balance 115 ml 797.5 ml IV Total 1280 ml 1922.5 ml Tube Feeding 135 ml Other 90 ml Output Urine Total 1300 ml 1215 ml Laboratory Tests 04/29/18 04:00: White Blood Count 11.7H, Red Blood Count 3.23L, Hemoglobin 7.8L, Hematocrit 24.6L, Mean Corpuscular Volume 76L, Mean Corpuscular Hemoglobin 24.2L, Mean Corpuscular Hemoglobin Concent 31.9L, Red Cell Distribution Width 18.4H, Platelet Count 236, Mean Platelet Volume 5.1L, Neutrophils (%) (Auto) , Lymphocytes (%) (Auto) , Monocytes (%) (Auto) , Eosinophils (%) (Auto) , Basophils (%) (Auto) , Differential Total Cells Counted 100, Neutrophils % ( Manual) 96H, Lymphocytes % (Manual) 2L, Monocytes % (Manual) 2, Eosinophils % ( Manual) 0, Basophils % (Manual) 0, Band Neutrophils 0, Platelet Estimate Adequate, Platelet Morphology Normal, Hypochromasia 3+, Anisocytosis 2+, Microcytosis 1+, Sodium Level 138, Potassium Level 2.9L, Chloride Level 103, Carbon Dioxide Level 19L, Anion Gap 16H, Blood Urea Nitrogen 21H, Creatinine 0.5L, Estimat Glomerular Filtration Rate , Glucose Level 63L, Calcium Level 8.1L , Total Bilirubin 0.7, Aspartate Amino Transf (AST/SGOT) 49H, Alanine Aminotransferase (ALT/SGPT) 19, Alkaline Phosphatase 304H, Troponin I 0.131H, Total Protein 6.0L, Albumin 1.6L, Globulin 4.4, Albumin/Globulin Ratio 0.4L 04/29/18 14:55: White Blood Count 12.8H, Red Blood Count 4.18L, Hemoglobin 10.1L, Hematocrit 32.2#L, Mean Corpuscular Volume 77L, Mean Corpuscular Hemoglobin 24.1L, Mean Corpuscular Hemoglobin Concent 31.3L, Red Cell Distribution Width 17.6H, Platelet Count 224, Mean Platelet Volume 4.9L, Neutrophils (%) (Auto) 83.5H, Lymphocytes (%) (Auto) 3.8L, Monocytes (%) (Auto) 12.5H, Eosinophils (%) (Auto) 0.0, Basophils (%) (Auto) 0.2 Height (Feet): 5 Height (Inches): 9.00 Weight (Pounds): 135 Oli Amaya MD Apr 29, 2018 19:52
[2018-04-29] MEDS: Tamsulosin 0.4mg cap ORAL SCH (21:03)
[2018-04-29] MEDS: Atorvastatin 20mg tab GT SCH (21:03)
[2018-04-30] VITALS (24 sets, daily range): BP systolic 107–148; BP diastolic 44–74
--- NOTE | 2018-04-30 00:15 | Electroencephalogram ---
DATE OF PROCEDURE: 04/27/2018 REQUESTING PHYSICIAN: Jarrod Vásquez M.D. READING PHYSICIAN: Krunal Coelho M.D. HISTORY: This EEG was performed on a 72-year-old gentleman with a history of a prior stroke, chronic respiratory failure for which he had a tracheostomy, pulmonary TB, and alteration in his mental state, who was noted to have multiple seizures. The purpose of this EEG was to evaluate the patient for the degree and type of cerebral dysfunction and to evaluate him for ongoing ictal or interictal phenomena. TECHNICAL NOTE: This EEG was performed on a [employer] Unit with electrodes placed on the scalp according to the International 10-20 system. [id number] and [id number] montages were used. The EEG was technically satisfactory and was performed while the patient was in an unresponsive state. OBSERVATIONS: In the reportedly unresponsive state, the background activity consisted of 2-2.5 Hz delta and 4-5 Hz theta activity. The activity was significantly lower in amplitude over the left hemisphere compared to the right. Triphasic waveforms with an anterior to posterior gradient were seen over the right hemisphere but not over the left hemisphere. IMPRESSION: This is an abnormal EEG characterized by: 1. Slowing of the background in the delta and theta range throughout the tracing. 2. Lower amplitude activity over the left hemisphere. 3. The presence of triphasic waveforms over the right hemisphere, but not the left hemisphere. COMMENT: The study is consistent with: 1. An encephalopathy of a severe degree, most probably with a metabolic component as evidenced by the triphasic waveforms. 2. Left greater than right brain dysfunction. Krunal Coelho M.D., M.S.P.H. DR: JOSE JOB#: [id number] [facility]
--- NOTE | 2018-04-30 01:00 | Progress Note ---
DATE: 04/29/2018 SUBJECTIVE: The patient is on ventilator support via tracheostomy. Blood pressure is stabilizing. He has been on beta-blockers with somewhat improved heart rate control. He continues to have fevers. Today, he also had vomiting of blood and continues to have bloody secretions with suctioning. Monitored sinus tachycardia. OBJECTIVE: VITAL SIGNS: Blood pressure 136/71, pulse 105, and respirations 38. Afebrile. LUNGS: Coarse breath sounds. Scattered rhonchi. HEART: Regular rhythm. Rapid rate. Normal S1, S2. ABDOMEN: Soft. G-tube is intact. EXTREMITIES: Trace edema. SKIN: Trach site with thin secretions. LABORATORY DATA: White count 12.8, hemoglobin 10.1. Potassium 2.9. Troponin is 0.131. BUN 21, creatinine 0.5. IMPRESSION: 1. Respiratory failure. 2. Sepsis with shock. 3. Secondary sinus tachycardia. 4. Acute myocardial ischemia and possible non-ST elevation infarction. 5. Hypokalemia. 6. Severe protein-calorie malnutrition. 7. Respiratory failure with tracheostomy. 8. Healthcare-acquired pneumonia. 9. Acute gastrointestinal bleeding. 10. Coronary hypoperfusion and coronary ischemia-infarction precipitated by acute blood loss. PLAN: 1. Replace potassium. 2. Continue beta-cr. 3. Hold anti-platelet and anticoagulant therapy. 4. Transfuse for hemoglobin less than 8 g. 5. Endoscopy is planned. Unless there is sign of worsening ischemia one can proceed. Jones Arauz M.D. : OLEG JOB#: [id number] CC:
[2018-04-30] MEDS: Ipratropium 0.02% Inh Soln 2.5ml UD HHN SCH ×6 (03:14→23:05)
--- NOTE | 2018-04-30 03:30 | Consultation ---
DATE OF CONSULTATION: 04/29/2018 GASTROLOGY CONSULTATION CHIEF COMPLAINT: I was asked to see this patient for evaluation of gastrointestinal bleeding. HISTORY OF PRESENT ILLNESS: The patient is a 72-year-old unfortunate male with a history of multiple medical problems, which eventually required tracheostomy, who was brought to hospital and then to the ICU because of sepsis. His condition is now better and he is off of pressors. He had some bouts of dark emesis overnight, which prompted this consultation. The patient himself is unable to provide any history and most of the information is only available from his chart. The patient does have a gastrostomy tube for long-term enteral access. PAST MEDICAL HISTORY: History of dysphagia, gastrostomy tube placement, encephalopathy, tracheostomy, chronic kidney disease, hypertension, anemia, hyperlipidemia, B12 deficiency, prostatic hypertrophy, and chronic hypertension. ALLERGIES: None. SOCIAL HISTORY: The patient has had no recent history of smoking or drinking. FAMILY HISTORY: Noncontributory. REVIEW OF SYSTEMS: Otherwise negative. PHYSICAL EXAMINATION: GENERAL: A debilitated thin man, who is seen in the ICU. HEENT: Normocephalic and atraumatic. Tracheostomy tube was in place. NECK: Supple. CHEST: Revealed coarse breath sounds. CARDIOVASCULAR: Revealed a regular rate. ABDOMEN: Soft. Scaphoid with good bowel sounds. Gastrostomy tube is in good position. EXTREMITIES: Revealed no edema. LABORATORY DATA: Noted. The patient is significantly anemic. ASSESSMENT: This patient presents with microcytic anemia and a bout of possible upper gastrointestinal bleeding. The differential diagnosis is somewhat large and includes entities such as gastroesophageal reflux disease, peptic ulcer disease, and bleeding around the gastrostomy tube site. This can be evaluated further with endoscopy. In addition, the patient does have abnormal liver tests for which he underwent an ultrasound. The ultrasound showed surgically absent gallbladder, but there was some degree of the surface nodularity seen suggestive of cirrhosis. The patient's endoscopy can shed further light on this possibly by showing portal hypertension. However, the patient's platelet count is normal and as far as his PT/INR done for significant cirrhosis of coagulopathy is not likely. I will check his hepatitis B and C serologies for further evaluation. RECOMMENDATIONS: Per above discussion and per orders written in the chart. Thank you for asking me to participate in the care of this patient. Oli Amaya M.D. DR: ARIANNA JOB#: [id number] CC: CHRISTEN
[2018-04-30] MEDS: D5NS 1,000 ML IV SCH ×3 (03:35→18:00)
[2018-04-30 07:26] LABS: HEMATOCRIT 26.5 % (42.0-52.0); HEMOGLOBIN 8.4 G/DL (14.2-18.0); MEAN CORPUSCULAR VOLUME 76 FL (80-99); PLATELET COUNT 216 K/UL (150-450); RED BLOOD COUNT 3.47 M/UL (4.70-6.10); RED CELL DISTRIBUTION WIDTH 17.5 % (11.6-14.8); WHITE BLOOD COUNT 12.3 K/UL (4.8-10.8)
[2018-04-30] MEDS ORDERED: Propofol 200mg/20ml IV ONE (07:30)
[2018-04-30] MEDS ORDERED: Lidocaine 1% MPF 10mg/ml 5ml ONE (07:30)
[2018-04-30 07:47] LABS: ALANINE AMINOTRANSFERASE 18 U/L (12-78); ALBUMIN 1.5 G/DL (3.4-5.0); ALBUMIN/GLOBULIN RATIO 0.3 (1.0-2.7); ALKALINE PHOSPHATASE 240 U/L (46-116); ANION GAP 8 mmol/L (5-15); ASPARTATE AMINO TRANSFERASE 47 U/L (15-37); BILIRUBIN,TOTAL 0.7 MG/DL (0.2-1.0); BLOOD UREA NITROGEN 16 mg/dL (7-18); CALCIUM 8.4 MG/DL (8.5-10.1); CARBON DIOXIDE 24 MMOL/L (21-32); CHLORIDE 106 MMOL/L (98-107); CREATININE 0.5 MG/DL (0.55-1.30); SODIUM 138 MMOL/L (136-145)
[2018-04-30 07:56] LABS: % IRON SATURATION 9 % (15-50); IRON 13 ug/dL (50-175); TOTAL IRON BINDING CAPACITY 140 ug/dL (250-450)
[2018-04-30] MEDS ORDERED: DiphenhydrAMINE 50mg/ml Inj IVP PRN (08:00)
[2018-04-30] MEDS ORDERED: fentaNYL 100 mcg/2 mL IV PRN (08:00)
[2018-04-30] MEDS ORDERED: Atropine Inj 1mg/10ml Syr IV PRN (08:00)
[2018-04-30] MEDS ORDERED: Midazolam 2mg/2ml Inj IVP PRN (08:00)
--- NOTE | 2018-04-30 08:03 | Anethesia Preoperative Eval ---
Anesthesia Pre-op PMH/ROS General Date of Evaluation: Apr 30, 2018 Time of Evaluation: 07:36 Anesthesiologist: nav ASA Score: ASA 4 Mallampati Score Class I : Soft palate, uvula, fauces, pillars visible Class II: Soft palate, uvula, fauces visible Class III: Soft palate, base of uvula visible Class IV: Only hard plate visible Mallampati Classification: Class II Surgeon: balaji Diagnosis: gi bleed Surgical Procedure: egd Anesthesia History: none Family History: no anesthesia problems Allergies: Coded Allergies: No Known Allergies (Unverified , 01/27/17) Medications: see eMAR Past Medical History Pulmonary: Reports: other - respiratory failure, vent dependent, Gastrointestinal/Genitourinary: Reports: GERD Neurologic/Psychiatric: Reports: depression/anxiety, other Hematology/Immune: Reports: anemia Anesthesia Pre-op Phys. Exam Physician Exam Last Vital Signs Date Time Temp Pulse Resp B/P (MAP) Pulse Ox O2 Delivery O2 Flow Rate FiO2 04/30/18 07:44 Mechanical Ventilator 04/30/18 07:15 90 22 30 04/30/18 07:00 108/48 (68) 100 04/30/18 04:00 97.6 97.6 04/28/18 19:14 Constitutional: NAD Neurologic: other - cva with weakness Cardiovascular: RRR Respiratory: other - trach on ventilator Gastrointestinal: other - g-tube Airway Exam Mallampati Score: Class II MO: limited Neck: tracheostomy TMD: 2fb ROM: limited Teeth: missing Anesthesia Pre-op A/P Labs Hematology Test 04/29/18 14:55 04/30/18 05:00 White Blood Count 12.8 K/UL (4.8-10.8) H 12.3 K/UL (4.8-10.8) H Red Blood Count 4.18 M/UL (4.70-6.10) L 3.47 M/UL (4.70-6.10) L Hemoglobin 10.1 G/DL (14.2-18.0) L 8.4 G/DL (14.2-18.0) L Hematocrit 32.2 % (42.0-52.0) #L 26.5 % (42.0-52.0) L Mean Corpuscular Volume 77 FL (80-99) L 76 FL (80-99) L Mean Corpuscular Hemoglobin 24.1 PG (27.0-31.0) L 24.2 PG (27.0-31.0) L Mean Corpuscular Hemoglobin Concent 31.3 G/DL (32.0-36.0) L 31.8 G/DL (32.0-36.0) L Red Cell Distribution Width 17.6 % (11.6-14.8) H 17.5 % (11.6-14.8) H Platelet Count 224 K/UL (150-450) 216 K/UL (150-450) Mean Platelet Volume 4.9 FL (6.5-10.1) L 4.8 FL (6.5-10.1) L Neutrophils (%) (Auto) 83.5 % (45.0-75.0) H % (45.0-75.0) Lymphocytes (%) (Auto) 3.8 % (20.0-45.0) L % (20.0-45.0) Monocytes (%) (Auto) 12.5 % (1.0-10.0) H % (1.0-10.0) Eosinophils (%) (Auto) 0.0 % (0.0-3.0) % (0.0-3.0) Basophils (%) (Auto) 0.2 % (0.0-2.0) % (0.0-2.0) Neutrophils % (Manual) Pending Lymphocytes % (Manual) Pending Platelet Estimate Pending Platelet Morphology Pending Chemistry Test 04/29/18 21:25 04/30/18 05:00 Troponin I 0.005 ng/mL (0.000-0.056) Pending Sodium Level 138 MMOL/L (136-145) Potassium Level 3.0 MMOL/L (3.5-5.1) L Chloride Level 106 MMOL/L (98-107) Carbon Dioxide Level 24 MMOL/L (21-32) Anion Gap 8 mmol/L (5-15) Blood Urea Nitrogen 16 mg/dL (7-18) Creatinine 0.5 MG/DL (0.55-1.30) L Estimat Glomerular Filtration Rate mL/min (>60) Glucose Level 103 MG/DL (74-106) Calcium Level 8.4 MG/DL (8.5-10.1) L Iron Level 13 ug/dL (50-175) L Total Iron Binding Capacity 140 ug/dL (250-450) L Percent Iron Saturation 9 % (15-50) L Unsaturated Iron Binding 127 ug/dL (112-346) Total Bilirubin 0.7 MG/DL (0.2-1.0) Aspartate Amino Transf (AST/SGOT) 47 U/L (15-37) H Alanine Aminotransferase (ALT/SGPT) 18 U/L (12-78) Alkaline Phosphatase 240 U/L (46-116) H Total Protein 5.9 G/DL (6.4-8.2) L Albumin 1.5 G/DL (3.4-5.0) L Globulin 4.4 g/dL Albumin/Globulin Ratio 0.3 (1.0-2.7) L Risk Assessment & Plan Assessment: asa4 Plan: mac Status Change Before Surgery: No Pre-Antibiotics Drug: Marilee Daniel MD Apr 30, 2018 08:03
--- NOTE | 2018-04-30 08:07 | Pre-Procedure Note/Attestation ---
Pre-Procedure Note/Attestation Complete Prior to Procedure Planned Procedure: not applicable Procedure Narrative: egd Indications for Procedure Pre-Operative Diagnosis: gib Attestation I attest that I discussed the nature of the procedure; its benefits; risks and complications; and alternatives (and the risks and benefits of such alternatives ), prior to the procedure, with the patient (or the patient's legal training representative). I attest that, if there was a reasonable possibility of needing a blood transfusion, the patient (or the patient's legal training representative) was given the [facility] standardized written summary, pursuant to the Misael Patricia Blood Safety Act ([place] Health and Safety Code # 1645, as amended). I attest that I re-evaluated the patient just prior to the surgery and that there has been no change in the patient's H&P, except as documented below: Oli Amaya MD Apr 30, 2018 08:07
--- NOTE | 2018-04-30 08:24 | General Progress Note ---
Assessment/Plan Assessment/Plan Assessment - suspected early cirrhosis based on imaging - UGIB, resolved - Anemia - Resp failure - s/p PEG and Trach Recommendations - check serologic w/u for chronic liver disease - NPO - EGD today Post endoscopy addendum: FINDINGS: - s/p antrectomy and Billroth II - Diffuse non erosive gastritis, s/p biopsy - No varicies seen - No active bleed Subjective Allergies: Coded Allergies: No Known Allergies (Unverified , 01/27/17) Subjective No events overnight NPO for EGD Troponin lower d/w direct support staff Objective Last 24 Hour Vital Signs Date Time Temp Pulse Resp B/P (MAP) Pulse Ox O2 Delivery O2 Flow Rate FiO2 04/30/18 07:44 Mechanical Ventilator 04/30/18 07:43 Mechanical Ventilator 04/30/18 07:15 90 22 30 04/30/18 07:00 87 21 108/48 (68) 100 04/30/18 06:00 84 24 130/60 (83) 100 04/30/18 05:25 82 24 30 04/30/18 05:00 85 21 131/57 (81) 100 04/30/18 04:00 97.6 78 24 124/55 (78) 100 97.6 04/30/18 04:00 78 04/30/18 04:00 Mechanical Ventilator 04/30/18 04:00 50 04/30/18 03:29 75 24 100 Mechanical Ventilator 30 04/30/18 03:13 75 22 99 Mechanical Ventilator 30 04/30/18 03:12 75 22 30 04/30/18 03:00 80 17 132/60 (84) 100 04/30/18 02:00 76 17 146/57 (86) 100 04/30/18 01:14 75 27 30 04/30/18 01:00 98.2 77 20 139/58 (85) 100 98.2 04/30/18 00:00 78 22 148/74 (98) 100 04/30/18 00:00 Mechanical Ventilator 04/29/18 23:33 91 20 100 Mechanical Ventilator 30 04/29/18 23:23 77 24 98 Mechanical Ventilator 30 04/29/18 23:22 77 29 30 04/29/18 23:00 19 135/68 (90) 100 04/29/18 22:00 91 24 129/70 (89) 100 04/29/18 21:12 101 34 30 04/29/18 21:04 95 157/74 04/29/18 21:00 92 21 139/75 (96) 99 04/29/18 20:00 80 04/29/18 20:00 96 25 145/87 (106) 97 04/29/18 20:00 Mechanical Ventilator 04/29/18 19:25 95 23 100 Mechanical Ventilator 30 04/29/18 19:15 98 21 100 Mechanical Ventilator 30 04/29/18 19:13 98 21 30 04/29/18 19:00 99.6 95 23 144/70 (94) 99 99.6 04/29/18 18:00 94 31 157/74 (101) 99 04/29/18 17:24 90 27 30 04/29/18 17:00 86 27 147/71 (96) 100 04/29/18 16:00 99.4 82 23 139/67 (91) 100 99.4 04/29/18 16:00 Mechanical Ventilator 04/29/18 16:00 86 04/29/18 15:27 83 28 100 Mechanical Ventilator 40 04/29/18 15:14 82 23 40 04/29/18 15:14 81 24 100 Mechanical Ventilator 40 04/29/18 15:00 81 24 142/68 (92) 100 04/29/18 14:00 79 22 138/67 (90) 99 04/29/18 13:40 79 28 50 04/29/18 13:00 74 21 133/61 (85) 100 04/29/18 12:01 100 21 100 Mechanical Ventilator 50 04/29/18 12:00 78 04/29/18 12:00 98.7 76 15 138/66 (90) 100 98.7 04/29/18 12:00 Mechanical Ventilator 04/29/18 11:50 78 18 100 Mechanical Ventilator 50 04/29/18 11:49 77 18 50 04/29/18 11:00 81 23 127/59 (81) 100 04/29/18 10:00 80 20 125/57 (79) 100 04/29/18 09:16 101 32 50 04/29/18 09:00 101 25 131/60 (83) 100 04/29/18 08:58 102 113/50 Intake and Output 04/29/18 04/30/18 19:00 07:00 Intake Total 1200 ml 1202.5 ml Output Total 1010 ml 355 ml Balance 190 ml 847.5 ml IV Total 1200 ml 1202.5 ml Output Urine Total 1010 ml 355 ml Laboratory Tests 04/29/18 14:55: White Blood Count 12.8H, Red Blood Count 4.18L, Hemoglobin 10.1L, Hematocrit 32.2#L, Mean Corpuscular Volume 77L, Mean Corpuscular Hemoglobin 24.1L, Mean Corpuscular Hemoglobin Concent 31.3L, Red Cell Distribution Width 17.6H, Platelet Count 224, Mean Platelet Volume 4.9L, Neutrophils (%) (Auto) 83.5H, Lymphocytes (%) (Auto) 3.8L, Monocytes (%) (Auto) 12.5H, Eosinophils (%) (Auto) 0.0, Basophils (%) (Auto) 0.2 04/29/18 21:25: Troponin I 0.005 04/30/18 05:00: White Blood Count 12.3H, Red Blood Count 3.47L, Hemoglobin 8.4L, Hematocrit 26.5L, Mean Corpuscular Volume 76L, Mean Corpuscular Hemoglobin 24.2L, Mean Corpuscular Hemoglobin Concent 31.8L, Red Cell Distribution Width 17.5H, Platelet Count 216, Mean Platelet Volume 4.8L, Neutrophils (%) (Auto) , Lymphocytes (%) (Auto) , Monocytes (%) (Auto) , Eosinophils (%) (Auto) , Basophils (%) (Auto) , Troponin I 0.017, Neutrophils % (Manual) [Pending], Lymphocytes % (Manual) [Pending], Platelet Estimate [Pending], Platelet Morphology [Pending], Sodium Level 138, Potassium Level 3.0L, Chloride Level 106 , Carbon Dioxide Level 24, Anion Gap 8, Blood Urea Nitrogen 16, Creatinine 0.5L , Estimat Glomerular Filtration Rate , Glucose Level 103, Calcium Level 8.4L, Iron Level 13L, Total Iron Binding Capacity 140L, Percent Iron Saturation 9L, Unsaturated Iron Binding 127, Total Bilirubin 0.7, Aspartate Amino Transf (AST/ SGOT) 47H, Alanine Aminotransferase (ALT/SGPT) 18, Alkaline Phosphatase 240H, Total Protein 5.9L, Albumin 1.5L, Globulin 4.4, Albumin/Globulin Ratio 0.3L, Anti-Nuclear Antibody Screen [Pending], F-Actin IgG Antibody [Pending], Hepatitis A IgM Antibody [Pending], Hepatitis B Surface Antigen [Pending], Hepatitis B Core IgM Antibody [Pending], Hepatitis C Antibody [Pending] Height (Feet): 5 Height (Inches): 7.00 Weight (Pounds): 136 Objective Thin AA man NCAT supple CTA RRR soft ND NT no edema Oli Amaya MD Apr 30, 2018 08:24
--- NOTE | 2018-04-30 08:25 | Endoscopy Procedure Note ---
Endoscopy Procedure Note General Indication for Procedure: GIB Procedures Performed: EGD Operative Findings/Diagnosis: gastritis, s/p Specimen: yes Pt Tolerated Procedure Well: Yes Estimated Blood Loss: none Anesthesia Anesthesiologist: Froylan Mcdonald Anesthesia: MAC Medications Medication Given: see anesthesia record Inserted Devices Implant(s) used?: No GI Core Measures 50 yrs or older w/o bx or poly: Not Applicable 10yrs. F/U not recommended: Not Applicable If not recommended, why?: Oli Amaya MD Apr 30, 2018 08:25
--- NOTE | 2018-04-30 08:27 | Brief Operative Note ---
Immediate Post Operative Note Operative Note Chief Complaint: gib Pre-op Diagnosis: gib Procedure: esophagogastroduodenoscopybx, Post-op Diagnosis: FINDINGS: - s/p antrectomy and Billroth II - Diffuse non erosive gastritis, s/p biopsy - No varicies seen - No active bleed Post-op Diagnosis: same as pre-op Surgeon: balaji Anesthesiologist: Ninoska Anesthesia: MAC Specimen: yes Complications: yes Condition: stable Fluids: recorded Estimated Blood Loss: none Drains: none Implant(s) used?: No Oli Amaya MD Apr 30, 2018 08:27
--- NOTE | 2018-04-30 08:57 | Pulmonolgy Critical Care Note ---
Critical Care - Asmt/Plan Assessment/Plan: Assessment/Plan IMPRESSION Chronic respiratory failure Possible sepsis, left lower lobe infiltrates Pulmonary Tuberculosis on Treatment chronic encephalopathy trach debility hypoxemia htn metabolic acidosis tachypnea, improved PLAN care noted IV antibiotics reviewed respiratory care discussed vent support for now aspiration precautions supportive care as outlined monitor acid base suction as neded follow clinically for change oxygen therapy monitor hemodynamics prognosis guarded medications/laboratory data/nursing notes/ICU care reviewed in detail note reviewed and edited care discussed with RN and RT ICU time spent 38 minutes Subjective ROS Limited/Unobtainable: Yes Allergies: Coded Allergies: No Known Allergies (Unverified , 01/27/17) Subjective care discussed seen earlier more comfortable on vent Objective Last 24 Hour Vital Signs Date Time Temp Pulse Resp B/P (MAP) Pulse Ox O2 Delivery O2 Flow Rate FiO2 04/29/18 11:50 78 18 100 Mechanical Ventilator 50 04/29/18 11:49 77 18 50 04/29/18 11:00 81 23 127/59 (81) 100 04/29/18 10:00 80 20 125/57 (79) 100 04/29/18 09:16 101 32 50 04/29/18 09:00 101 25 131/60 (83) 100 04/29/18 08:58 102 113/50 04/29/18 08:00 Mechanical Ventilator 04/29/18 08:00 99.0 97 21 113/50 (71) 100 99.0 04/29/18 08:00 97 21 113/50 (71) 100 04/29/18 08:00 99 04/29/18 07:16 101 23 100 Mechanical Ventilator 50 04/29/18 07:05 103 28 100 Mechanical Ventilator 50 04/29/18 07:05 103 28 50 04/29/18 07:00 98.9 101 15 121/56 (77) 100 98.9 04/29/18 06:00 99.2 110 31 146/73 (97) 100 99.2 04/29/18 05:29 112 31 50 04/29/18 05:00 100.1 101 35 133/62 (85) 100 100.1 04/29/18 04:00 105 04/29/18 04:00 Mechanical Ventilator 04/29/18 04:00 99.0 105 30 141/76 (97) 100 99.0 04/29/18 03:17 Mechanical Ventilator 50 04/29/18 03:16 Mechanical Ventilator 50 04/29/18 03:00 98.5 105 38 136/71 (92) 100 98.5 04/29/18 02:50 112 37 50 04/29/18 02:00 99.2 109 36 135/78 (97) 100 99.2 04/29/18 01:00 100.0 112 40 143/64 (90) 100 100.0 04/29/18 00:56 112 30 50 04/29/18 00:00 108 04/29/18 00:00 50 04/29/18 00:00 Mechanical Ventilator 04/29/18 00:00 99.2 108 33 133/58 (83) 100 99.2 04/28/18 23:00 98.6 103 38 182/92 (122) 100 98.6 04/28/18 22:56 101 36 100 Mechanical Ventilator 50 04/28/18 22:50 101 35 100 Mechanical Ventilator 50 04/28/18 22:49 101 29 50 04/28/18 22:00 105 41 173/88 (116) 100 04/28/18 21:26 126 178/97 04/28/18 21:00 102 36 175/88 (117) 100 04/28/18 20:47 122 35 50 04/28/18 20:00 50 04/28/18 20:00 Mechanical Ventilator 04/28/18 20:00 122 04/28/18 20:00 100.3 123 36 169/81 (110) 100 100.3 04/28/18 19:14 123 36 100 Mechanical Ventilator 50 04/28/18 19:14 124 35 100 Mechanical Ventilator 50 04/28/18 19:12 123 36 50 04/28/18 19:00 127 35 149/76 (100) 100 04/28/18 18:09 121 38 50 04/28/18 18:00 122 45 163/85 (111) 100 04/28/18 17:00 128 41 158/90 (112) 100 04/28/18 16:21 120 28 100 T-piece 8.0 30 04/28/18 16:12 112 30 100 T-piece 8.0 30 04/28/18 16:01 98.1 110 47 148/81 (103) 100 98.1 04/28/18 16:00 30 04/28/18 16:00 117 04/28/18 16:00 T-piece 04/28/18 15:33 129 164/86 04/28/18 15:00 139 41 155/88 (110) 100 04/28/18 14:00 147 42 165/91 (115) 100 04/28/18 13:29 100.0 04/28/18 13:04 181/99 04/28/18 13:00 141 40 181/99 (126) 100 04/28/18 12:59 101.0 Intake and Output 04/28/18 04/29/18 19:00 07:00 Intake Total 1415 ml 2012.5 ml Output Total 1300 ml 1215 ml Balance 115 ml 797.5 ml IV Total 1280 ml 1922.5 ml Tube Feeding 135 ml Other 90 ml Output Urine Total 1300 ml 1215 ml Objective WDWN poorly responsive moderate breath sounds bilaterally without rhonchi or wheeze [id number] without MRG NABS nontender no HSM; gt no CCE cachectic poor response to pain skin noted appears more comfortable Microbiology Date/Time Source Procedure Growth Status 04/26/18 20:20 Blood Blood Culture - Preliminary NO GROWTH AFTER 48 HOURS Resulted 04/26/18 20:15 Blood Blood Culture - Preliminary NO GROWTH AFTER 48 HOURS Resulted 04/26/18 21:45 Nasal Nares MRSA Culture - Final NO METHICILLIN RESISTANT STAPH AUREUS... Complete 04/28/18 15:00 Urine,Clean Catch Urine Culture - Preliminary Resulted 04/26/18 22:45 Rectum VRE Culture - Final Enterococcus Faecium - Vre Complete 04/26/18 21:45 Rectum - Final NO CARBAPENEM-RESISTANT ENTEROBACTERI... Complete Laboratory Tests 04/28/18 15:40: Arterial Blood pH 7.437, Arterial Blood Partial Pressure CO2 29.1L, Arterial Blood Partial Pressure O2 58.9L, Arterial Blood HCO3 19.2L, Arterial Blood Oxygen Saturation 89.9L, Arterial Blood Base Excess -4.2, Derek Test Positive 04/28/18 16:40: Prothrombin Time 11.6H, Prothromb Time International Ratio 1.1, Activated Partial Thromboplast Time 41H, Sodium Level 138, Potassium Level 4.1, Chloride Level 104, Carbon Dioxide Level 20L, Anion Gap 14, Blood Urea Nitrogen 19H, Creatinine 0.5L, Estimat Glomerular Filtration Rate , Glucose Level 91, Lactic Acid Level 1.80, Calcium Level 8.5, Total Bilirubin 1.1H, Direct Bilirubin 0.6H , Aspartate Amino Transf (AST/SGOT) 52H, Alanine Aminotransferase (ALT/SGPT) 22 , Alkaline Phosphatase 367H, Total Creatine Kinase 48, Total Protein 6.8, Albumin 1.9L, Globulin 4.9, Albumin/Globulin Ratio 0.4L 04/29/18 04:00: Sodium Level 138, Potassium Level 2.9L, Chloride Level 103, Carbon Dioxide Level 19L, Anion Gap 16H, Blood Urea Nitrogen 21H, Creatinine 0.5L, Estimat Glomerular Filtration Rate , Glucose Level 63L, Calcium Level 8.1L, Total Bilirubin 0.7, Aspartate Amino Transf (AST/SGOT) 49H, Alanine Aminotransferase ( ALT/SGPT) 19, Alkaline Phosphatase 304H, Total Protein 6.0L, Albumin 1.6L, Globulin 4.4, Albumin/Globulin Ratio 0.4L, White Blood Count 11.7H, Red Blood Count 3.23L, Hemoglobin 7.8L, Hematocrit 24.6L, Mean Corpuscular Volume 76L, Mean Corpuscular Hemoglobin 24.2L, Mean Corpuscular Hemoglobin Concent 31.9L, Red Cell Distribution Width 18.4H, Platelet Count 236, Mean Platelet Volume 5.1L , Neutrophils (%) (Auto) , Lymphocytes (%) (Auto) , Monocytes (%) (Auto) , Eosinophils (%) (Auto) , Basophils (%) (Auto) , Differential Total Cells Counted 100, Neutrophils % (Manual) 96H, Lymphocytes % (Manual) 2L, Monocytes % (Manual) 2, Eosinophils % (Manual) 0, Basophils % (Manual) 0, Band Neutrophils 0 , Platelet Estimate Adequate, Platelet Morphology Normal, Hypochromasia 3+, Anisocytosis 2+, Microcytosis 1+, Troponin I 0.131H Current Medications Medications (Trade) Dose Ordered Sig/Iram Route PRN Reason Start Time Stop Time Status Last Admin Dose Admin Acetaminophen (Tylenol) 650 mg Q4H PRN ORAL Fever/Headache/Mild Pain 04/27/18 18:30 05/26/18 18:29 04/28/18 12:59 Atorvastatin Calcium (Lipitor) 10 mg BEDTIME GT 04/28/18 21:00 05/28/18 20:59 04/28/18 21:26 Clonidine HCl (Catapres Tab) 0.1 mg Q4H PRN ORAL SBP >160 04/28/18 11:00 05/28/18 10:59 04/28/18 10:49 Dextrose/Sodium Chloride 1,000 ml @ 100 mls/hr Q10H IV 04/29/18 07:00 05/29/18 06:59 04/29/18 06:58 Docusate Sodium (Colace) 100 mg DAILY ORAL 04/28/18 09:00 05/27/18 08:59 04/29/18 08:57 Ethambutol HCl (Myambutol) 800 mg DAILY ORAL 04/28/18 09:00 05/27/18 08:59 04/29/18 08:58 Hydralazine HCl (Apresoline) 10 mg Q4H PRN IV SBP >160 04/28/18 13:00 05/28/18 12:59 04/28/18 13:04 Ipratropium Minerva (Atrovent) 500 mcg Q4HRT HHN 04/27/18 19:00 05/02/18 10:59 04/29/18 11:49 Isoniazid (Inh) 300 mg DAILY ORAL 04/28/18 09:00 05/27/18 08:59 04/29/18 08:57 Levetiracetam 750 mg/Dextrose 102.5 ml @ 440 mls/hr Q12HR IV 04/29/18 01:00 05/29/18 00:59 04/29/18 10:04 Lorazepam (Ativan 2mg/ml 1ml) 2 mg Q1H PRN IV For Seizures 04/27/18 18:30 05/04/18 12:29 04/28/18 14:15 Metoprolol Tartrate (Lopressor) 50 mg Q12HR GT 04/28/18 21:00 05/28/18 20:59 04/29/18 08:58 Multivitamins Therapeutic (Therapeutic Multivitamin) 1 ea DAILY ORAL 04/28/18 09:00 05/27/18 08:59 04/29/18 08:57 Ondansetron HCl (Zofran) 4 mg Q6H PRN IVP Nausea & Vomiting 04/28/18 08:30 05/28/18 08:29 04/28/18 08:54 Pantoprazole (Protonix) 40 mg EVERY 12 HOURS IVP 04/29/18 09:00 05/29/18 08:59 04/29/18 08:57 Piperacillin Sod/ Tazobactam Sod 3.375 gm/Dextrose 100 ml @ 25 mls/hr EVERY 8 HOURS IV 04/28/18 14:00 05/03/18 13:59 04/29/18 06:28 Potassium Chloride 100 ml @ 50 mls/hr Q2H IVPB 04/29/18 09:30 04/29/18 13:29 04/29/18 10:18 Pyrazinamide (Pza) 1,000 mg DAILY ORAL 04/28/18 09:00 05/28/18 08:59 04/29/18 08:58 Pyridoxine HCl (Vitamin B6) 50 mg DAILY ORAL 04/28/18 09:00 05/27/18 08:59 04/29/18 08:57 Rifampin (Rifadin) 600 mg DAILY ORAL 04/28/18 09:00 05/27/18 08:59 04/29/18 08:57 Sennosides (Senokot) 2 tab BIDPRN PRN GT Constipation 04/27/18 18:30 05/27/18 18:29 Tamsulosin HCl (Flomax) 0.4 mg BEDTIME ORAL 04/27/18 21:00 05/27/18 20:59 04/28/18 21:25 Time of note does not reflect time patient seen Critical Care - Objective Last 24 Hour Vital Signs Date Time Temp Pulse Resp B/P (MAP) Pulse Ox O2 Delivery O2 Flow Rate FiO2 04/30/18 08:00 97.8 86 24 117/54 (75) 100 97.8 04/30/18 08:00 Mechanical Ventilator 04/30/18 07:44 Mechanical Ventilator 04/30/18 07:43 Mechanical Ventilator 04/30/18 07:15 90 22 30 04/30/18 07:00 87 21 108/48 (68) 100 04/30/18 06:00 84 24 130/60 (83) 100 04/30/18 05:25 82 24 30 04/30/18 05:00 85 21 131/57 (81) 100 04/30/18 04:00 97.6 78 24 124/55 (78) 100 97.6 04/30/18 04:00 78 04/30/18 04:00 Mechanical Ventilator 04/30/18 04:00 50 04/30/18 03:29 75 24 100 Mechanical Ventilator 30 04/30/18 03:13 75 22 99 Mechanical Ventilator 30 04/30/18 03:12 75 22 30 04/30/18 03:00 80 17 132/60 (84) 100 04/30/18 02:00 76 17 146/57 (86) 100 04/30/18 01:14 75 27 30 04/30/18 01:00 98.2 77 20 139/58 (85) 100 98.2 04/30/18 00:00 78 22 148/74 (98) 100 04/30/18 00:00 Mechanical Ventilator 04/29/18 23:33 91 20 100 Mechanical Ventilator 30 04/29/18 23:23 77 24 98 Mechanical Ventilator 30 04/29/18 23:22 77 29 30 04/29/18 23:00 19 135/68 (90) 100 04/29/18 22:00 91 24 129/70 (89) 100 04/29/18 21:12 101 34 30 04/29/18 21:04 95 157/74 04/29/18 21:00 92 21 139/75 (96) 99 04/29/18 20:00 80 04/29/18 20:00 96 25 145/87 (106) 97 04/29/18 20:00 Mechanical Ventilator 04/29/18 19:25 95 23 100 Mechanical Ventilator 30 04/29/18 19:15 98 21 100 Mechanical Ventilator 30 04/29/18 19:13 98 21 30 04/29/18 19:00 99.6 95 23 144/70 (94) 99 99.6 04/29/18 18:00 94 31 157/74 (101) 99 04/29/18 17:24 90 27 30 04/29/18 17:00 86 27 147/71 (96) 100 04/29/18 16:00 99.4 82 23 139/67 (91) 100 99.4 04/29/18 16:00 Mechanical Ventilator 04/29/18 16:00 86 04/29/18 15:27 83 28 100 Mechanical Ventilator 40 04/29/18 15:14 82 23 40 04/29/18 15:14 81 24 100 Mechanical Ventilator 40 04/29/18 15:00 81 24 142/68 (92) 100 9/25/18 14:00 79 22 138/67 (90) 99 04/29/18 13:40 79 28 50 04/29/18 13:00 74 21 133/61 (85) 100 04/29/18 12:01 100 21 100 Mechanical Ventilator 50 04/29/18 12:00 78 04/29/18 12:00 98.7 76 15 138/66 (90) 100 98.7 04/29/18 12:00 Mechanical Ventilator 04/29/18 11:50 78 18 100 Mechanical Ventilator 50 04/29/18 11:49 77 18 50 04/29/18 11:00 81 23 127/59 (81) 100 04/29/18 10:00 80 20 125/57 (79) 100 04/29/18 09:16 101 32 50 04/29/18 09:00 101 25 131/60 (83) 100 04/29/18 08:58 102 113/50 Micro: Microbiology Date/Time Source Procedure Growth Status 04/28/18 17:30 Sputum Gram Stain - Final Resulted 04/28/18 17:30 Sputum Culture - Preliminary Gram Negative Bacillus 1 Resulted 04/28/18 15:00 Urine,Clean Catch Urine Culture - Preliminary YEAST Resulted Critical Care - Subjective ROS Limited/Unobtainable: Yes FI02: 30 Vent Support Breath Rate: 12 Vent Support Mode: AC Vent Tidal Volume: 500 Sputum Amount: Scant PEEP: 5.0 PIP: 21 Tube Feeding Amount: 45 I&O: Intake and Output 04/29/18 04/30/18 19:00 07:00 Intake Total 1200 ml 1202.5 ml Output Total 1010 ml 355 ml Balance 190 ml 847.5 ml IV Total 1200 ml 1202.5 ml Output Urine Total 1010 ml 355 ml Jones Rasmussen MD Apr 30, 2018 08:57
--- NOTE | 2018-04-30 09:20 | Immediate Post-Op Evaluation ---
Immediate Post-Op Evalulation Immediate Post-Op Evalulation Procedure: egd w/bx Date of Evaluation: Apr 30, 2018 Time of Evaluation: 08:38 IV Fluids: 100ml 0.9ns Blood Products: none Estimated Blood Loss: negligible Blood Pressure Systolic: 110 Blood Pressure Diastolic: 59 Pulse Rate: 87 Respiratory Rate: 16 O2 Sat by Pulse Oximetry: 100 Temperature (Fahrenheit): 97.8 Pain Score (1-10): 0 Nausea: No Vomiting: No Complications none Patient Status: awake, reacts, patent Hydration Status: adequate Drug: Marilee Daniel MD Apr 30, 2018 09:20
--- NOTE | 2018-04-30 09:23 | 48 Hour Post Anesthesia Eval ---
Post Anesthesia Evaluation Procedure: egd w/bx Date of Evaluation: Apr 30, 2018 Time of Evaluation: 08:40 Blood Pressure Systolic: 117 0: 54 Pulse Rate: 86 Respiratory Rate: 16 Temperature (Fahrenheit): 97.8 O2 Sat by Pulse Oximetry: 100 Airway: patent Nausea: No Vomiting: No Pain Intensity: 0 Hydration Status: adequate Cardiopulmonary Status: stable Mental Status/LOC: patient returned to baseline Post-Anesthesia Complications: none Follow-up care needed: N/A Marilee Baum MD Apr 30, 2018 09:23
[2018-04-30] MEDS: Multivitamin w/Minerals tab ORAL SCH (10:00)
[2018-04-30] MEDS: Docusate 100mg/10ml Liq ORAL SCH (10:00)
[2018-04-30] MEDS: Pyridoxine 50mg tab ORAL SCH (10:00)
[2018-04-30] MEDS: Isoniazid 300mg tab ORAL SCH (10:00)
[2018-04-30] MEDS: levETIRAcetam 750 MG in D5W 95 ML IV SCH ×2 (10:00→21:42)
[2018-04-30] MEDS: Metoprolol Tartrate 50mg tab GT SCH ×2 (10:00→21:42)
[2018-04-30] MEDS: Pantoprazole Inj IVP SCH ×2 (10:00→21:43)
--- NOTE | 2018-04-30 13:39 | General Progress Note ---
Assessment/Plan Problem List: (1) Status epilepticus ICD Codes: G40.901 - Epilepsy, unspecified, not intractable, with status epilepticus SNOMED: 533670435 (2) Encephalopathy acute ICD Codes: G93.40 - Encephalopathy, unspecified SNOMED: 12419617, 095740725 (3) Probable sepsis ICD Codes: A41.9 - Sepsis, unspecified organism SNOMED: 685744762 (4) Dementia ICD Codes: F03.90 - Unspecified dementia without behavioral disturbance SNOMED: 61228030 (5) Encephalopathy ICD Codes: G93.40 - Encephalopathy, unspecified SNOMED: 65337794 (6) Sepsis ICD Codes: A41.9 - Sepsis, unspecified organism SNOMED: 39018821 (7) Pulmonary tuberculosis ICD Codes: A15.0 - Tuberculosis of lung SNOMED: 697521639 (8) Dehydration ICD Codes: E86.0 - Dehydration SNOMED: 89593714 (9) Altered level of consciousness ICD Codes: R40.4 - Transient alteration of awareness SNOMED: 8091597 Status: stable, not improved Assessment/Plan vent support resp rx GI eval appreciated PPI rx abx per ID TB rx sz rx per neuro IVF monitor HR b-blockade CT head Subjective ROS Limited/Unobtainable: Yes Constitutional: Reports: malaise, weakness HEENT: Reports: no symptoms Cardiovascular: Reports: no symptoms Respiratory: Reports: shortness of breath Gastrointestinal/Abdominal: Reports: difficulty swallowing Genitourinary: Reports: no symptoms Neurologic/Psychiatric: Reports: pre-existing deficit, seizure Endocrine: Reports: no symptoms Hematologic/Lymphatic: Reports: anemia Allergies: Coded Allergies: No Known Allergies (Unverified , 01/27/17) All Systems: reviewed and negative except above Subjective stable on the vent.HR better controlled. remains poorly responsive. s/p endoscopy. no bleeding or varices. Objective Last 24 Hour Vital Signs Date Time Temp Pulse Resp B/P (MAP) Pulse Ox O2 Delivery O2 Flow Rate FiO2 04/30/18 13:05 69 23 30 04/30/18 12:00 67 04/30/18 12:00 99.0 66 21 107/44 (65) 99 99.0 04/30/18 12:00 Mechanical Ventilator 04/30/18 11:41 79 22 100 Mechanical Ventilator 30 04/30/18 11:31 73 22 100 Mechanical Ventilator 30 9/26/18 11:00 99.1 74 23 120/50 (73) 99 99.1 04/30/18 10:44 80 25 30 04/30/18 10:00 93 22 131/66 (87) 99 04/30/18 10:00 92 122/52 04/30/18 09:22 208.0 86 16 100 04/30/18 09:20 208.0 87 16 100 04/30/18 09:00 91 19 118/56 (76) 100 04/30/18 08:46 83 24 30 04/30/18 08:00 89 04/30/18 08:00 97.8 86 24 117/54 (75) 100 97.8 04/30/18 08:00 Mechanical Ventilator 04/30/18 07:44 Mechanical Ventilator 04/30/18 07:43 Mechanical Ventilator 04/30/18 07:15 90 22 30 04/30/18 07:00 87 21 108/48 (68) 100 04/30/18 06:00 84 24 130/60 (83) 100 04/30/18 05:25 82 24 30 04/30/18 05:00 85 21 131/57 (81) 100 04/30/18 04:00 97.6 78 24 124/55 (78) 100 97.6 04/30/18 04:00 78 04/30/18 04:00 Mechanical Ventilator 04/30/18 04:00 50 04/30/18 03:29 75 24 100 Mechanical Ventilator 30 04/30/18 03:13 75 22 99 Mechanical Ventilator 30 04/30/18 03:12 75 22 30 04/30/18 03:00 80 17 132/60 (84) 100 04/30/18 02:00 76 17 146/57 (86) 100 04/30/18 01:14 75 27 30 04/30/18 01:00 98.2 77 20 139/58 (85) 100 98.2 04/30/18 00:00 78 22 148/74 (98) 100 04/30/18 00:00 Mechanical Ventilator 04/29/18 23:33 91 20 100 Mechanical Ventilator 30 04/29/18 23:23 77 24 98 Mechanical Ventilator 30 04/29/18 23:22 77 29 30 04/29/18 23:00 19 135/68 (90) 100 04/29/18 22:00 91 24 129/70 (89) 100 04/29/18 21:12 101 34 30 04/29/18 21:04 95 157/74 04/29/18 21:00 92 21 139/75 (96) 99 04/29/18 20:00 80 04/29/18 20:00 96 25 145/87 (106) 97 04/29/18 20:00 Mechanical Ventilator 04/29/18 19:25 95 23 100 Mechanical Ventilator 30 04/29/18 19:15 98 21 100 Mechanical Ventilator 30 04/29/18 19:13 98 21 30 04/29/18 19:00 99.6 95 23 144/70 (94) 99 99.6 04/29/18 18:00 94 31 157/74 (101) 99 04/29/18 17:24 90 27 30 04/29/18 17:00 86 27 147/71 (96) 100 04/29/18 16:00 99.4 82 23 139/67 (91) 100 99.4 04/29/18 16:00 Mechanical Ventilator 04/29/18 16:00 86 04/29/18 15:27 83 28 100 Mechanical Ventilator 40 04/29/18 15:14 82 23 40 04/29/18 15:14 81 24 100 Mechanical Ventilator 40 04/29/18 15:00 81 24 142/68 (92) 100 04/29/18 14:00 79 22 138/67 (90) 99 04/29/18 13:40 79 28 50 Intake and Output 04/29/18 04/30/18 19:00 07:00 Intake Total 1200 ml 1327.5 ml Output Total 1010 ml 355 ml Balance 190 ml 972.5 ml IV Total 1200 ml 1327.5 ml Output Urine Total 1010 ml 355 ml Laboratory Tests 04/29/18 14:55: White Blood Count 12.8H, Red Blood Count 4.18L, Hemoglobin 10.1L, Hematocrit 32.2#L, Mean Corpuscular Volume 77L, Mean Corpuscular Hemoglobin 24.1L, Mean Corpuscular Hemoglobin Concent 31.3L, Red Cell Distribution Width 17.6H, Platelet Count 224, Mean Platelet Volume 4.9L, Neutrophils (%) (Auto) 83.5H, Lymphocytes (%) (Auto) 3.8L, Monocytes (%) (Auto) 12.5H, Eosinophils (%) (Auto) 0.0, Basophils (%) (Auto) 0.2 04/29/18 21:25: Troponin I 0.005 04/30/18 05:00: White Blood Count 12.3H, Red Blood Count 3.47L, Hemoglobin 8.4L, Hematocrit 26.5L, Mean Corpuscular Volume 76L, Mean Corpuscular Hemoglobin 24.2L, Mean Corpuscular Hemoglobin Concent 31.8L, Red Cell Distribution Width 17.5H, Platelet Count 216, Mean Platelet Volume 4.8L, Neutrophils (%) (Auto) , Lymphocytes (%) (Auto) , Monocytes (%) (Auto) , Eosinophils (%) (Auto) , Basophils (%) (Auto) , Troponin I 0.017, Differential Total Cells Counted 100, Neutrophils % (Manual) 87H, Lymphocytes % (Manual) 3L, Monocytes % (Manual) 8, Eosinophils % (Manual) 0, Basophils % (Manual) 0, Band Neutrophils 2, Platelet Estimate Adequate, Platelet Morphology Normal, Hypochromasia 1+, Anisocytosis 1+ , Microcytosis 1+, Sodium Level 138, Potassium Level 3.0L, Chloride Level 106, Carbon Dioxide Level 24, Anion Gap 8, Blood Urea Nitrogen 16, Creatinine 0.5L, Estimat Glomerular Filtration Rate , Glucose Level 103, Calcium Level 8.4L, Iron Level 13L, Total Iron Binding Capacity 140L, Percent Iron Saturation 9L, Unsaturated Iron Binding 127, Total Bilirubin 0.7, Aspartate Amino Transf (AST/ SGOT) 47H, Alanine Aminotransferase (ALT/SGPT) 18, Alkaline Phosphatase 240H, Total Protein 5.9L, Albumin 1.5L, Globulin 4.4, Albumin/Globulin Ratio 0.3L, Anti-Nuclear Antibody Screen [Pending], F-Actin IgG Antibody [Pending], Hepatitis A IgM Antibody [Pending], Hepatitis B Surface Antigen [Pending], Hepatitis B Core IgM Antibody [Pending], Hepatitis C Antibody [Pending] Height (Feet): 5 Height (Inches): 7.00 Weight (Pounds): 136 Objective General Appearance: WD/WN, cachetic, thin Neck: supple Cardiovascular: tachycardia Respiratory/Chest: rhonchi - bilaterally Abdomen: normal bowel sounds, non tender, soft, no organomegaly Edema: no edema noted Arm (L), no edema noted Arm (R), no edema noted Leg (L), no edema noted Leg (R), no edema noted Pedal (L), no edema noted Pedal (R), no edema noted Generalized Jarrod Vásquez MD Apr 30, 2018 13:39
--- NOTE | 2018-04-30 15:25 | Infectious Diseases Prog Note ---
Assessment/Plan Assessment/Plan antibiotics : zosyn, isoniazid, rifampin, pyrazinamide, ethambutol, pyridoxine A 1. pulmonary TB 2. gram negative pneumonia 3. fungal UTI 4. respiratory failure 5. encephalopathy P 1. continue zosyn 2. continue isoniazid, rifampin, pyrazinamide, ethambutol, pyridoxine 3. start minocycline 4. will follow up cultures Subjective ROS Limited/Unobtainable: Yes Allergies: Coded Allergies: No Known Allergies (Unverified , 01/27/17) Objective Vital Signs Last 24 Hour Vital Signs Date Time Temp Pulse Resp B/P (MAP) Pulse Ox O2 Delivery O2 Flow Rate FiO2 04/30/18 15:00 99.0 69 22 117/48 (71) 100 99.0 04/30/18 14:00 99.0 72 22 116/48 (70) 100 99.0 04/30/18 13:05 69 23 30 04/30/18 13:00 99.0 69 23 118/49 (72) 100 99.0 04/30/18 12:00 67 04/30/18 12:00 99.0 66 21 107/44 (65) 99 99.0 04/30/18 12:00 Mechanical Ventilator 04/30/18 11:41 79 22 100 Mechanical Ventilator 30 04/30/18 11:31 73 22 100 Mechanical Ventilator 30 04/30/18 11:00 99.1 74 23 120/50 (73) 99 99.1 04/30/18 10:44 80 25 30 04/30/18 10:00 93 22 131/66 (87) 99 04/30/18 10:00 92 122/52 04/30/18 09:22 208.0 86 16 100 04/30/18 09:20 208.0 87 16 100 04/30/18 09:00 91 19 118/56 (76) 100 04/30/18 08:46 83 24 30 04/30/18 08:00 89 04/30/18 08:00 97.8 86 24 117/54 (75) 100 97.8 04/30/18 08:00 Mechanical Ventilator 04/30/18 07:44 Mechanical Ventilator 04/30/18 07:43 Mechanical Ventilator 04/30/18 07:15 90 22 30 04/30/18 07:00 87 21 108/48 (68) 100 04/30/18 06:00 84 24 130/60 (83) 100 04/30/18 05:25 82 24 30 04/30/18 05:00 85 21 131/57 (81) 100 04/30/18 04:00 97.6 78 24 124/55 (78) 100 97.6 04/30/18 04:00 78 04/30/18 04:00 Mechanical Ventilator 04/30/18 04:00 50 04/30/18 03:29 75 24 100 Mechanical Ventilator 30 04/30/18 03:13 75 22 99 Mechanical Ventilator 30 04/30/18 03:12 75 22 30 04/30/18 03:00 80 17 132/60 (84) 100 04/30/18 02:00 76 17 146/57 (86) 100 04/30/18 01:14 75 27 30 04/30/18 01:00 98.2 77 20 139/58 (85) 100 98.2 04/30/18 00:00 78 22 148/74 (98) 100 04/30/18 00:00 Mechanical Ventilator 04/29/18 23:33 91 20 100 Mechanical Ventilator 30 04/29/18 23:23 77 24 98 Mechanical Ventilator 30 04/29/18 23:22 77 29 30 04/29/18 23:00 19 135/68 (90) 100 04/29/18 22:00 91 24 129/70 (89) 100 04/29/18 21:12 101 34 30 04/29/18 21:04 95 157/74 04/29/18 21:00 92 21 139/75 (96) 99 04/29/18 20:00 80 04/29/18 20:00 96 25 145/87 (106) 97 04/29/18 20:00 Mechanical Ventilator 04/29/18 19:25 95 23 100 Mechanical Ventilator 30 04/29/18 19:15 98 21 100 Mechanical Ventilator 30 04/29/18 19:13 98 21 30 04/29/18 19:00 99.6 95 23 144/70 (94) 99 99.6 04/29/18 18:00 94 31 157/74 (101) 99 04/29/18 17:24 90 27 30 04/29/18 17:00 86 27 147/71 (96) 100 04/29/18 16:00 99.4 82 23 139/67 (91) 100 99.4 04/29/18 16:00 Mechanical Ventilator 04/29/18 16:00 86 04/29/18 15:27 83 28 100 Mechanical Ventilator 40 Height (Feet): 5 Height (Inches): 7.00 Weight (Pounds): 136 HEENT: status post trach Respiratory/Chest: lungs clear Cardiovascular: normal rate, regular rhythm, no gallop/murmur Abdomen: soft, non tender Extremities: no edema Microbiology Date/Time Source Procedure Growth Status 04/28/18 17:30 Sputum Gram Stain - Final Resulted 04/28/18 17:30 Sputum Culture - Preliminary Gram Negative Bacillus 1 Resulted 04/28/18 15:00 Urine,Clean Catch Urine Culture - Preliminary YEAST Resulted Laboratory Tests Test 04/29/18 21:25 04/30/18 05:00 Troponin I 0.005 ng/mL (0.000-0.056) 0.017 ng/mL (0.000-0.056) White Blood Count 12.3 K/UL (4.8-10.8) H Red Blood Count 3.47 M/UL (4.70-6.10) L Hemoglobin 8.4 G/DL (14.2-18.0) L Hematocrit 26.5 % (42.0-52.0) L Mean Corpuscular Volume 76 FL (80-99) L Mean Corpuscular Hemoglobin 24.2 PG (27.0-31.0) L Mean Corpuscular Hemoglobin Concent 31.8 G/DL (32.0-36.0) L Red Cell Distribution Width 17.5 % (11.6-14.8) H Platelet Count 216 K/UL (150-450) Mean Platelet Volume 4.8 FL (6.5-10.1) L Neutrophils (%) (Auto) % (45.0-75.0) Lymphocytes (%) (Auto) % (20.0-45.0) Monocytes (%) (Auto) % (1.0-10.0) Eosinophils (%) (Auto) % (0.0-3.0) Basophils (%) (Auto) % (0.0-2.0) Differential Total Cells Counted 100 Neutrophils % (Manual) 87 % (45-75) H Lymphocytes % (Manual) 3 % (20-45) L Monocytes % (Manual) 8 % (1-10) Eosinophils % (Manual) 0 % (0-3) Basophils % (Manual) 0 % (0-2) Band Neutrophils 2 % (0-8) Platelet Estimate Adequate Platelet Morphology Normal Hypochromasia 1+ Anisocytosis 1+ Microcytosis 1+ Sodium Level 138 MMOL/L (136-145) Potassium Level 3.0 MMOL/L (3.5-5.1) L Chloride Level 106 MMOL/L (98-107) Carbon Dioxide Level 24 MMOL/L (21-32) Anion Gap 8 mmol/L (5-15) Blood Urea Nitrogen 16 mg/dL (7-18) Creatinine 0.5 MG/DL (0.55-1.30) L Estimat Glomerular Filtration Rate mL/min (>60) Glucose Level 103 MG/DL (74-106) Calcium Level 8.4 MG/DL (8.5-10.1) L Iron Level 13 ug/dL (50-175) L Total Iron Binding Capacity 140 ug/dL (250-450) L Percent Iron Saturation 9 % (15-50) L Unsaturated Iron Binding 127 ug/dL (112-346) Total Bilirubin 0.7 MG/DL (0.2-1.0) Aspartate Amino Transf (AST/SGOT) 47 U/L (15-37) H Alanine Aminotransferase (ALT/SGPT) 18 U/L (12-78) Alkaline Phosphatase 240 U/L (46-116) H Total Protein 5.9 G/DL (6.4-8.2) L Albumin 1.5 G/DL (3.4-5.0) L Globulin 4.4 g/dL Albumin/Globulin Ratio 0.3 (1.0-2.7) L Anti-Nuclear Antibody Screen Pending F-Actin IgG Antibody Pending Hepatitis A IgM Antibody Pending Hepatitis B Surface Antigen Pending Hepatitis B Core IgM Antibody Pending Hepatitis C Antibody Pending Current Medications Medications (Trade) Dose Ordered Sig/Iram Route PRN Reason Start Time Stop Time Status Last Admin Dose Admin Acetaminophen (Tylenol) 650 mg Q4H PRN ORAL Fever/Headache/Mild Pain 04/27/18 18:30 05/26/18 18:29 04/28/18 12:59 Al Hydroxide/Mg Hydroxide (Mylanta) 15 ml Q1H PRN ORAL gi upset 04/30/18 08:00 04/30/18 17:00 Atorvastatin Calcium (Lipitor) 10 mg BEDTIME GT 04/28/18 21:00 05/28/18 20:59 04/29/18 21:03 Atropine Sulfate (Atropine) 0.5 mg Q5M PRN IV bpm less than 45 04/30/18 08:00 04/30/18 17:00 Clonidine HCl (Catapres Tab) 0.1 mg Q4H PRN ORAL SBP >160 04/28/18 11:00 05/28/18 10:59 04/28/18 10:49 Dextrose/Sodium Chloride 1,000 ml @ 100 mls/hr Q10H IV 04/29/18 07:00 05/29/18 06:59 04/30/18 13:00 Diphenhydramine HCl (Benadryl) 25 mg Q15M PRN IVP Itching 04/30/18 08:00 04/30/18 17:00 Docusate Sodium (Colace) 100 mg DAILY ORAL 04/28/18 09:00 05/27/18 08:59 04/30/18 10:00 Ethambutol HCl (Myambutol) 800 mg DAILY ORAL 04/28/18 09:00 05/27/18 08:59 04/30/18 10:00 Fentanyl Citrate (Sublimaze 100 mcg/2 mL) 25 mcg Q10M PRN IV Moderate Pain (Pain Scale 4-6) 04/30/18 08:00 04/30/18 17:00 Hydralazine HCl (Apresoline) 5 mg Q30M PRN IV SBP>160 OR___/DBP>90 OR___ 04/30/18 08:00 04/30/18 17:00 Hydralazine HCl (Apresoline) 10 mg Q4H PRN IV SBP >160 04/28/18 13:00 05/28/18 12:59 04/28/18 13:04 Ipratropium [place] (Atrovent) 500 mcg Q4HRT HHN 04/27/18 19:00 05/02/18 10:59 04/30/18 11:31 Isoniazid (Inh) 300 mg DAILY ORAL 04/28/18 09:00 05/27/18 08:59 04/30/18 10:00 Levetiracetam 750 mg/Dextrose 102.5 ml @ 440 mls/hr Q12HR IV 04/29/18 01:00 05/29/18 00:59 04/30/18 10:00 Lorazepam (Ativan 2mg/ml 1ml) 2 mg Q1H PRN IV For Seizures 04/27/18 18:30 05/04/18 12:29 04/28/18 14:15 Metoprolol Tartrate (Lopressor) 50 mg Q12HR GT 04/28/18 21:00 05/28/18 20:59 04/30/18 10:00 Midazolam HCl (Versed 2mg/2ml vial) 1 mg Q15M PRN IVP For Anxiety 04/30/18 08:00 04/30/18 17:00 Multivitamins Therapeutic (Therapeutic Multivitamin) 1 ea DAILY ORAL 04/28/18 09:00 05/27/18 08:59 04/30/18 10:00 Ondansetron HCl (Zofran) 4 mg Q1H PRN IVP Nausea & Vomiting 04/30/18 08:00 04/30/18 17:00 Ondansetron HCl (Zofran) 4 mg Q6H PRN IVP Nausea & Vomiting 04/28/18 08:30 05/28/18 08:29 04/28/18 08:54 Pantoprazole (Protonix) 40 mg EVERY 12 HOURS IVP 04/29/18 09:00 05/29/18 08:59 04/30/18 10:00 Piperacillin Sod/ Tazobactam Sod 3.375 gm/Dextrose 100 ml @ 25 mls/hr EVERY 8 HOURS IV 04/28/18 14:00 05/03/18 13:59 04/30/18 13:00 Pyrazinamide (Pza) 1,000 mg DAILY ORAL 04/28/18 09:00 05/28/18 08:59 04/30/18 10:00 Pyridoxine HCl (Vitamin B6) 50 mg DAILY ORAL 04/28/18 09:00 05/27/18 08:59 04/30/18 10:00 Rifampin (Rifadin) 600 mg DAILY ORAL 04/28/18 09:00 05/27/18 08:59 04/30/18 10:00 Sennosides (Senokot) 2 tab BIDPRN PRN GT Constipation 04/27/18 18:30 05/27/18 18:29 Tamsulosin HCl (Flomax) 0.4 mg BEDTIME ORAL 04/27/18 21:00 05/27/18 20:59 04/29/18 21:03 RENÉE RICHARDSON Apr 30, 2018 15:25
--- NOTE | 2018-04-30 16:00 | Diagnostic Imaging Report ---
Indications: Altered mental status Technique: Spiral acquisitions obtained through the brain. Angled axial and coronal 5 x 5 mm slices were reconstructed. Total dose length product 1404.24 mGycm. CTDI vol(s) 70.38 mGy. Dose reduction achieved using automated exposure control Comparison: 02/20/2018 Findings: There is some image degradation due to motion artifact. Again demonstrated is extensive age-related enlargement of the ventricles and extra axial CSF spaces. Again demonstrated is left occipital and posterior temporal encephalomalacia consistent with old infarct. Again demonstrated is extensive periventricular deep white matter low-attenuation consistent with chronic ischemic change. There is some high right parietal encephalomalacia which was not evident previously. Mostly deep white matter ischemic changes in the bilateral anterior frontal regions are more extensive than on the previous study. Low-attenuation extending to the periphery in the right posterior parietal region appears more extensive than previously. No acute intercranial hemorrhage nor edema, mass effect, nor midline shift. Old lacunar infarcts are seen in the thalami and hypothalami bilaterally. 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 There is increased sphenoid and left ethmoid sinus disease as compared to the prior study. There is also near complete opacification of the left mastoid air cells which was not evident previously. The calvarium is intact. Impression: Negative for acute intracranial bleed or mass effect Extensive chronic and age-related changes, as described Considerable deep white matter hypoattenuation, consistent with chronic ischemic change. However, this has progressed considerably since the previous study, raising concern for active demyelinating process Multiple old infarcts. There are also multiple infarcts which do not appear acute but were not evident previously, likewise concerning for or rapidly progressing ischemic process. Correlate with clinical findings Sinus and left mastoid disease, new/progressive since prior study 02/20/[address] at [facility] is accredited by the [employer] and the scans are performed using protocols designed to limit radiation exposure to as low as reasonably achievable to attain images of sufficient resolution adequate for diagnostic evaluation.
[2018-04-30] MEDS: Minocycline HCl 50mg cap ORAL SCH ×2 (16:29→21:43)
--- NOTE | 2018-04-30 16:32 | Neurology Progress Note ---
Interim History Interim History Interim History Mr. Narvaez continues to be poorly responsive. There has been no improvement in his mental state. He continues to be seizure-free. He continues to be non-functional. As per his nurse he has been exhibiting decerebrate posturing of his right upper extremity today. Review of Systems Neuro Review of Systems Unable to obtain. Objective Physical Exam Last Vital Signs Date Time Temp Pulse Resp B/P (MAP) Pulse Ox O2 Delivery O2 Flow Rate FiO2 04/30/18 16:00 Mechanical Ventilator 04/30/18 16:00 97.8 69 22 123/55 (77) 100 97.8 04/30/18 14:44 30 04/28/18 19:14 Laboratory Tests Test 04/29/18 21:25 04/30/18 05:00 Troponin I 0.005 ng/mL (0.000-0.056) 0.017 ng/mL (0.000-0.056) White Blood Count 12.3 K/UL (4.8-10.8) H Red Blood Count 3.47 M/UL (4.70-6.10) L Hemoglobin 8.4 G/DL (14.2-18.0) L Hematocrit 26.5 % (42.0-52.0) L Mean Corpuscular Volume 76 FL (80-99) L Mean Corpuscular Hemoglobin 24.2 PG (27.0-31.0) L Mean Corpuscular Hemoglobin Concent 31.8 G/DL (32.0-36.0) L Red Cell Distribution Width 17.5 % (11.6-14.8) H Platelet Count 216 K/UL (150-450) Mean Platelet Volume 4.8 FL (6.5-10.1) L Neutrophils (%) (Auto) % (45.0-75.0) Lymphocytes (%) (Auto) % (20.0-45.0) Monocytes (%) (Auto) % (1.0-10.0) Eosinophils (%) (Auto) % (0.0-3.0) Basophils (%) (Auto) % (0.0-2.0) Differential Total Cells Counted 100 Neutrophils % (Manual) 87 % (45-75) H Lymphocytes % (Manual) 3 % (20-45) L Monocytes % (Manual) 8 % (1-10) Eosinophils % (Manual) 0 % (0-3) Basophils % (Manual) 0 % (0-2) Band Neutrophils 2 % (0-8) Platelet Estimate Adequate Platelet Morphology Normal Hypochromasia 1+ Anisocytosis 1+ Microcytosis 1+ Sodium Level 138 MMOL/L (136-145) Potassium Level 3.0 MMOL/L (3.5-5.1) L Chloride Level 106 MMOL/L (98-107) Carbon Dioxide Level 24 MMOL/L (21-32) Anion Gap 8 mmol/L (5-15) Blood Urea Nitrogen 16 mg/dL (7-18) Creatinine 0.5 MG/DL (0.55-1.30) L Estimat Glomerular Filtration Rate mL/min (>60) Glucose Level 103 MG/DL (74-106) Calcium Level 8.4 MG/DL (8.5-10.1) L Iron Level 13 ug/dL (50-175) L Total Iron Binding Capacity 140 ug/dL (250-450) L Percent Iron Saturation 9 % (15-50) L Unsaturated Iron Binding 127 ug/dL (112-346) Total Bilirubin 0.7 MG/DL (0.2-1.0) Aspartate Amino Transf (AST/SGOT) 47 U/L (15-37) H Alanine Aminotransferase (ALT/SGPT) 18 U/L (12-78) Alkaline Phosphatase 240 U/L (46-116) H Total Protein 5.9 G/DL (6.4-8.2) L Albumin 1.5 G/DL (3.4-5.0) L Globulin 4.4 g/dL Albumin/Globulin Ratio 0.3 (1.0-2.7) L Anti-Nuclear Antibody Screen Pending F-Actin IgG Antibody Pending Hepatitis A IgM Antibody Pending Hepatitis B Surface Antigen Pending Hepatitis B Core IgM Antibody Pending Hepatitis C Antibody Pending Neurologic Exam Objective PHYSICAL EXAMINATION: GENERAL: He is a well-developed, ill-looking black gentleman, lying in an ICU bed, in no acute distress. HEAD: Normocephalic and atraumatic. EENT: Examination benign. NECK: No neck rigidity was observed. NEUROLOGICAL EXAMINATION: MENTAL STATUS EXAMINATION: He did not arouse even on deep painful stimulation. He was unable to follow any commands and unable to communicate in any manner. SPEECH: Could not be tested. LANGUAGE: Could not be tested. CRANIAL NERVE EXAMINATION: II: He did not blink to threat. III, IV & : External ocular movements were present on oculocephalic maneuvers. The pupils were 3 mm in diameter, equal, round, regular, and reactive sluggishly to light. V & VII: The corneal reflexes were present bilaterally. However, the right- sided reflex was significantly diminished compared to the left. VIII: He seemed to be able to hear and had no nystagmus. IX & X: Gag reflex was suppressed. XI: The sternocleidomastoids and trapezii functioned minimally. XII: The tongue was in the midline. MOTOR SYSTEM: The tone was increased in all four extremities with spasticity more marked on the right than on the left. Examination of muscle mass revealed generalized muscle wasting, again more marked on the right than on the left. Examination of power was impossible to perform on individual muscle groups. However, he did move all four extremities on deep pain with possibly right greater than left-sided weakness. SENSORY EXAMINATION: He responded appropriately to deep pain with less vigorous responses on the right side compared to the left. REFLEXES: Trace+ and bilaterally symmetrical at the biceps, triceps, brachioradialis. 0 at both knees and ankles. The plantar responses were extensor bilaterally. COORDINATION, STANCE & GAIT: Could not be tested. Impression/Recommendations Diagnostic Impression 1. Mr. Sagar Narvaez is a 72-year-old, [place] gentleman, of unknown handedness, who does have a past history of cerebrovascular disease with a prior stroke, pulmonary tuberculosis, chronic respiratory failure for which he has tracheostomy, and dysphagia for which he has a gastrostomy; who lives in retirement where he was noted to have an alteration in his mental state in the form of increased lethargy. He was thus brought into the [facility] emergency room and following admission, he apparently spiked a fever to 103 degrees Fahrenheit followed by multiple seizures. He was cooled down, given Ativan and started on Keppra and has been seizure-free since then. 2. He continues to be poorly responsive. There has been no improvement in his mental state. He continues to be seizure-free. He continues to be non- functional. 3. On neurological examination, at this time, he cannot be aroused even on deep pain. His corneal reflex is diminished on the right side compared to the left. 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 In addition, he responds to deep pain, less on the right than on the left. His deep tendon reflexes are globally diminished and his plantar responses are extensor bilaterally. 4. Laboratory data on my initial evaluation revealed that his WBC count is creeping up from 4.4 to 9.5. He is significantly anemic with a hemoglobin of 8.8 G. His chemistry panel reveals that his bilirubin is elevated to 1.1. His alkaline phosphatase is elevated to 367, his AST is elevated to 52. His albumin is low at 1.9. His arterial blood gas reveals a pCO2 of 29 and a pO2 of 59 with a pH of 7.43. His urinalysis reveals 2+ leukocyte esterase with 2-4 RBCs and 2-4 WBCs per high-power field. 5. The EEG done on 04/27/18 revealed a moderately severe encephalopathy and left > right hemispheric dysfunction. No inter-ictal discharges were seen. 6. The CT of the brain done on 04/30/18 revealed multiple old bilateral cerebral infarcts involving the left > right brain. 7. 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 Recommendations 1. Continue present management. 2. Continue Keppra 750 mg q.12 hours. 3. Observe closely. Mercedes Coelho M.D., M.S.P.Rosa M. MERCEDES COELHO Apr 30, 2018 16:32
[2018-04-30] MEDS: Atorvastatin 20mg tab GT SCH (21:42)
[2018-04-30] MEDS: Tamsulosin 0.4mg cap ORAL SCH (21:43)
[2018-05-01] VITALS (24 sets, daily range): BP systolic 110–189; BP diastolic 52–101
--- NOTE | 2018-05-01 03:00 | Progress Note ---
DATE: 04/30/2018 CARDIOLOGY PROGRESS NOTE SUBJECTIVE: The patient is on ventilator support. Poorly responsive. Endoscopy completed. No signs of bleeding. OBJECTIVE: VITAL SIGNS: Blood pressure 107/44, pulse 66, respirations 21, and temperature 99.1. HEENT: Thin trach secretions. Coarse breath sounds with rhonchi. HEART: Regular rhythm and rate. Normal S1, S2. ABDOMEN: Soft. G-tube intact. EXTREMITIES: No edema. LABORATORY DATA: White count 12.3 and hemoglobin 8.4. Troponin 0.017. Percent iron is 9%. Potassium is 3. Albumin 1.5. IMPRESSION: 1. Respiratory failure. 2. Sepsis. 3. Gastrointestinal bleed. 4. Anemia. 5. Tracheostomy. 6. Secondary sinus tachycardia. 7. Poor peripheral access. 8. Chronic diastolic congestive heart failure. 9. Stabilizing blood pressure range. 10. Hypokalemia. PLAN: 1. Antibiotics. 2. Respiratory hygiene. 3. Ventilator support. 4. Continue beta-cr. 5. Monitor acid-base parameters and adjust intravenous fluids accordingly. 6. Check magnesium level. 7. Replace potassium. Jones Arauz M.D. DR: ERICA JOB#: [id number] CC:
[2018-05-01] MEDS: Ipratropium 0.02% Inh Soln 2.5ml UD HHN SCH ×6 (03:20→23:20)
[2018-05-01] MEDS: D5NS 1,000 ML IV SCH ×3 (05:22→21:57)
[2018-05-01 05:49] LABS: HEMATOCRIT 25.4 % (42.0-52.0); HEMOGLOBIN 8.2 G/DL (14.2-18.0); MEAN CORPUSCULAR VOLUME 76 FL (80-99); PLATELET COUNT 202 K/UL (150-450); RED BLOOD COUNT 3.33 M/UL (4.70-6.10); RED CELL DISTRIBUTION WIDTH 17.3 % (11.6-14.8); WHITE BLOOD COUNT 9.3 K/UL (4.8-10.8)
[2018-05-01 06:16] LABS: ALANINE AMINOTRANSFERASE 15 U/L (12-78); ALBUMIN 1.2 G/DL (3.4-5.0); ALBUMIN/GLOBULIN RATIO 0.3 (1.0-2.7); ALKALINE PHOSPHATASE 261 U/L (46-116); ANION GAP 8 mmol/L (5-15); ASPARTATE AMINO TRANSFERASE 34 U/L (15-37); BILIRUBIN,TOTAL 0.5 MG/DL (0.2-1.0); BLOOD UREA NITROGEN 20 mg/dL (7-18); CALCIUM 7.7 MG/DL (8.5-10.1); CARBON DIOXIDE 22 MMOL/L (21-32); CHLORIDE 107 MMOL/L (98-107); CREATININE 0.6 MG/DL (0.55-1.30); POTASSIUM 2.8 MMOL/L (3.5-5.1); SODIUM 137 MMOL/L (136-145)
[2018-05-01] MEDS: Docusate 100mg/10ml Liq ORAL SCH (09:00)
[2018-05-01] MEDS: Pyridoxine 50mg tab ORAL SCH (09:00)
[2018-05-01] MEDS: Isoniazid 300mg tab ORAL SCH (09:01)
[2018-05-01] MEDS: Metoprolol Tartrate 50mg tab GT SCH ×2 (09:01→20:35)
[2018-05-01] MEDS: Multivitamin w/Minerals tab ORAL SCH (09:01)
[2018-05-01] MEDS: Minocycline HCl 50mg cap ORAL SCH ×2 (09:01→20:36)
[2018-05-01] MEDS: Pantoprazole Inj IVP SCH ×2 (09:01→20:35)
[2018-05-01] MEDS: levETIRAcetam 750 MG in D5W 95 ML IV SCH ×2 (09:31→21:15)
--- NOTE | 2018-05-01 09:52 | General Progress Note ---
Assessment/Plan Assessment/Plan Assessment - suspected early cirrhosis based on imaging - UGIB, resolved - Anemia - Resp failure - s/p PEG and Trach Recommendations - check serologic w/u for chronic liver disease - hepatitis A/B/C negative - continue TF Subjective Allergies: Coded Allergies: No Known Allergies (Unverified , 01/27/17) Subjective No events overnight back on TF non communicative Objective Last 24 Hour Vital Signs Date Time Temp Pulse Resp B/P (MAP) Pulse Ox O2 Delivery O2 Flow Rate FiO2 05/01/18 09:01 74 162/68 05/01/18 09:00 162/68 05/01/18 08:54 81 36 30 05/01/18 08:00 98.8 74 35 152/67 (95) 100 98.8 05/01/18 08:00 30 05/01/18 07:12 74 32 100 Mechanical Ventilator 30 05/01/18 07:02 79 34 100 Mechanical Ventilator 30 05/01/18 07:00 74 32 148/65 (92) 100 05/01/18 06:55 73 34 30 05/01/18 06:00 71 26 143/64 (90) 100 05/01/18 05:10 89 30 30 05/01/18 05:00 75 28 140/64 (89) 100 05/01/18 04:00 Mechanical Ventilator 05/01/18 04:00 99.0 72 26 126/58 (80) 100 99.0 05/01/18 04:00 70 05/01/18 03:30 71 29 100 Mechanical Ventilator 30 05/01/18 03:20 73 31 100 Mechanical Ventilator 30 05/01/18 03:20 73 31 30 05/01/18 03:00 74 24 126/59 (81) 100 05/01/18 02:00 77 25 119/57 (77) 100 05/01/18 01:15 74 29 30 05/01/18 01:00 75 30 119/53 (75) 100 05/01/18 00:00 99.5 73 27 119/69 (86) 100 99.5 05/01/18 00:00 Mechanical Ventilator 05/01/18 00:00 30 05/01/18 00:00 77 04/30/18 23:14 75 25 100 Mechanical Ventilator 30 04/30/18 23:04 75 25 100 Mechanical Ventilator 30 04/30/18 23:03 75 25 30 9/26/18 23:00 74 28 134/58 (83) 100 04/30/18 22:42 99.9 04/30/18 22:12 100.8 04/30/18 22:00 100.8 76 28 129/59 (82) 100 100.8 04/30/18 21:42 86 136/59 04/30/18 21:21 80 30 30 04/30/18 21:00 86 32 136/59 (84) 100 04/30/18 20:00 Mechanical Ventilator 04/30/18 20:00 99.0 84 33 136/60 (85) 100 99.0 04/30/18 20:00 30 04/30/18 19:47 88 31 100 Mechanical Ventilator 30 04/30/18 19:37 86 30 100 Mechanical Ventilator 30 04/30/18 19:35 86 30 30 04/30/18 19:20 82 04/30/18 19:00 97.8 83 29 120/53 (75) 100 97.8 04/30/18 18:00 97.8 72 21 119/53 (75) 100 97.8 04/30/18 17:00 98.0 75 22 116/51 (72) 100 98.0 04/30/18 16:48 74 22 30 04/30/18 16:00 Mechanical Ventilator 04/30/18 16:00 73 04/30/18 16:00 97.8 69 22 123/55 (77) 100 97.8 04/30/18 15:56 Mechanical Ventilator 04/30/18 15:54 Mechanical Ventilator 04/30/18 15:00 99.0 69 22 117/48 (71) 100 99.0 04/30/18 14:44 76 30 30 04/30/18 14:00 99.0 72 22 116/48 (70) 100 99.0 04/30/18 13:05 69 23 30 04/30/18 13:00 99.0 69 23 118/49 (72) 100 99.0 04/30/18 12:00 67 04/30/18 12:00 99.0 66 21 107/44 (65) 99 99.0 04/30/18 12:00 Mechanical Ventilator 04/30/18 11:41 79 22 100 Mechanical Ventilator 30 04/30/18 11:31 73 22 100 Mechanical Ventilator 30 04/30/18 11:00 99.1 74 23 120/50 (73) 99 99.1 04/30/18 10:44 80 25 30 04/30/18 10:00 93 22 131/66 (87) 99 04/30/18 10:00 92 122/52 Intake and Output 04/30/18 05/01/18 19:00 07:00 Intake Total 2065 ml 2448 ml Output Total 300 ml 445 ml Balance 1765 ml 2003 ml Free Water 50 ml 50 ml IV Total 1490 ml 1628 ml Tube Feeding 425 ml 720 ml Other 100 ml 50 ml Output Urine Total 300 ml 445 ml # Bowel Movements 2 Laboratory Tests 05/01/18 03:45: White Blood Count 9.3, Red Blood Count 3.33L, Hemoglobin 8.2L, Hematocrit 25.4L , Mean Corpuscular Volume 76L, Mean Corpuscular Hemoglobin 24.7L, Mean Corpuscular Hemoglobin Concent 32.3, Red Cell Distribution Width 17.3H, Platelet Count 202, Mean Platelet Volume 5.7L, Neutrophils (%) (Auto) , Lymphocytes (%) (Auto) , Monocytes (%) (Auto) , Eosinophils (%) (Auto) , Basophils (%) (Auto) , Differential Total Cells Counted 100, Neutrophils % ( Manual) 85H, Lymphocytes % (Manual) 11L, Monocytes % (Manual) 4, Eosinophils % ( Manual) 0, Basophils % (Manual) 0, Band Neutrophils 0, Platelet Estimate Adequate, Platelet Morphology Normal, Anisocytosis 1+, Microcytosis 2+, Sodium Level 137, Potassium Level 2.8L, Chloride Level 107, Carbon Dioxide Level 22, Anion Gap 8, Blood Urea Nitrogen 20H, Creatinine 0.6, Estimat Glomerular Filtration Rate , Glucose Level 144H, Calcium Level 7.7L, Magnesium Level 1.4L, Total Bilirubin 0.5, Aspartate Amino Transf (AST/SGOT) 34, Alanine Aminotransferase (ALT/SGPT) 15, Alkaline Phosphatase 261H, Pro-B-Type Natriuretic Peptide 2439H, Total Protein 5.4L, Albumin 1.2L, Globulin 4.2, Albumin/Globulin Ratio 0.3L Height (Feet): 5 Height (Inches): 7.00 Weight (Pounds): 139 Objective Thin AA man non communicative NCAT (+) trach CTA RRR soft ND NT, (+) GT no edema Oli Amaya MD May 01, 2018 09:52
--- NOTE | 2018-05-01 11:45 | Infectious Diseases Prog Note ---
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 Gastritis P; Continue Zosyn & Minocycline Continue TB treatment with RIPE will f/u cultures Artificial tears Subjective ROS Limited/Unobtainable: Yes Gastrointestinal/Abdominal: Reports: other - s/ P EGD yesterday, that showed gastritis, no active bleeding Allergies: Coded Allergies: No Known Allergies (Unverified , 01/27/17) Objective Vital Signs Last 24 Hour Vital Signs Date Time Temp Pulse Resp B/P (MAP) Pulse Ox O2 Delivery O2 Flow Rate FiO2 05/01/18 11:32 74 35 100 Mechanical Ventilator 30 05/01/18 11:29 74 35 30 05/01/18 09:01 74 162/68 05/01/18 09:00 162/68 05/01/18 08:54 81 36 30 05/01/18 08:00 98.8 74 35 152/67 (95) 100 98.8 05/01/18 08:00 30 05/01/18 07:12 74 32 100 Mechanical Ventilator 30 05/01/18 07:02 79 34 100 Mechanical Ventilator 30 05/01/18 07:00 74 32 148/65 (92) 100 05/01/18 06:55 73 34 30 05/01/18 06:00 71 26 143/64 (90) 100 05/01/18 05:10 89 30 30 05/01/18 05:00 75 28 140/64 (89) 100 05/01/18 04:00 Mechanical Ventilator 05/01/18 04:00 99.0 72 26 126/58 (80) 100 99.0 05/01/18 04:00 70 05/01/18 03:30 71 29 100 Mechanical Ventilator 30 05/01/18 03:20 73 31 100 Mechanical Ventilator 30 05/01/18 03:20 73 31 30 05/01/18 03:00 74 24 126/59 (81) 100 05/01/18 02:00 77 25 119/57 (77) 100 05/01/18 01:15 74 29 30 05/01/18 01:00 75 30 119/53 (75) 100 05/01/18 00:00 99.5 73 27 119/69 (86) 100 99.5 05/01/18 00:00 Mechanical Ventilator 05/01/18 00:00 30 05/01/18 00:00 77 04/30/18 23:14 75 25 100 Mechanical Ventilator 30 04/30/18 23:04 75 25 100 Mechanical Ventilator 30 04/30/18 23:03 75 25 30 04/30/18 23:00 74 28 134/58 (83) 100 04/30/18 22:42 99.9 04/30/18 22:12 100.8 04/30/18 22:00 100.8 76 28 129/59 (82) 100 100.8 04/30/18 21:42 86 136/59 04/30/18 21:21 80 30 30 04/30/18 21:00 86 32 136/59 (84) 100 04/30/18 20:00 Mechanical Ventilator 04/30/18 20:00 99.0 84 33 136/60 (85) 100 99.0 04/30/18 20:00 30 04/30/18 19:47 88 31 100 Mechanical Ventilator 30 04/30/18 19:37 86 30 100 Mechanical Ventilator 30 04/30/18 19:35 86 30 30 04/30/18 19:20 82 04/30/18 19:00 97.8 83 29 120/53 (75) 100 97.8 04/30/18 18:00 97.8 72 21 119/53 (75) 100 97.8 04/30/18 17:00 98.0 75 22 116/51 (72) 100 98.0 04/30/18 16:48 74 22 30 04/30/18 16:00 Mechanical Ventilator 04/30/18 16:00 73 04/30/18 16:00 97.8 69 22 123/55 (77) 100 97.8 04/30/18 15:56 Mechanical Ventilator 04/30/18 15:54 Mechanical Ventilator 04/30/18 15:00 99.0 69 22 117/48 (71) 100 99.0 04/30/18 14:44 76 30 30 04/30/18 14:00 99.0 72 22 116/48 (70) 100 99.0 04/30/18 13:05 69 23 30 04/30/18 13:00 99.0 69 23 118/49 (72) 100 99.0 04/30/18 12:00 67 04/30/18 12:00 99.0 66 21 107/44 (65) 99 99.0 04/30/18 12:00 Mechanical Ventilator 04/30/18 11:41 79 22 100 Mechanical Ventilator 30 Height (Feet): 5 Height (Inches): 7.00 Weight (Pounds): 139 HEENT: status post trach, other - bulbal conjunctiva erythema Respiratory/Chest: decreased breath sounds, other - on ventilator Cardiovascular: normal rate Abdomen: soft, non tender, other - GT feeding Extremities: other - pedal edema Neurologic/Psychiatric: unresponsiveness Microbiology Date/Time Source Procedure Growth Status 04/28/18 17:30 Sputum Gram Stain - Final Resulted 04/28/18 17:30 Sputum Culture - Preliminary Gram Negative Bacillus 1 Gram Negative Bacillus 1#2 Resulted 04/28/18 15:00 Urine,Clean Catch Urine Culture - Final Kaylah Albicans Complete Laboratory Tests Test 05/01/18 03:45 White Blood Count 9.3 K/UL (4.8-10.8) Red Blood Count 3.33 M/UL (4.70-6.10) L Hemoglobin 8.2 G/DL (14.2-18.0) L Hematocrit 25.4 % (42.0-52.0) L Mean Corpuscular Volume 76 FL (80-99) L Mean Corpuscular Hemoglobin 24.7 PG (27.0-31.0) L Mean Corpuscular Hemoglobin Concent 32.3 G/DL (32.0-36.0) Red Cell Distribution Width 17.3 % (11.6-14.8) H Platelet Count 202 K/UL (150-450) Mean Platelet Volume 5.7 FL (6.5-10.1) L Neutrophils (%) (Auto) % (45.0-75.0) Lymphocytes (%) (Auto) % (20.0-45.0) Monocytes (%) (Auto) % (1.0-10.0) Eosinophils (%) (Auto) % (0.0-3.0) Basophils (%) (Auto) % (0.0-2.0) Differential Total Cells Counted 100 Neutrophils % (Manual) 85 % (45-75) H Lymphocytes % (Manual) 11 % (20-45) L Monocytes % (Manual) 4 % (1-10) Eosinophils % (Manual) 0 % (0-3) Basophils % (Manual) 0 % (0-2) Band Neutrophils 0 % (0-8) Platelet Estimate Adequate Platelet Morphology Normal Anisocytosis 1+ Microcytosis 2+ Sodium Level 137 MMOL/L (136-145) Potassium Level 2.8 MMOL/L (3.5-5.1) L Chloride Level 107 MMOL/L (98-107) Carbon Dioxide Level 22 MMOL/L (21-32) Anion Gap 8 mmol/L (5-15) Blood Urea Nitrogen 20 mg/dL (7-18) H Creatinine 0.6 MG/DL (0.55-1.30) Estimat Glomerular Filtration Rate mL/min (>60) Glucose Level 144 MG/DL (74-106) H Calcium Level 7.7 MG/DL (8.5-10.1) L Magnesium Level 1.4 MG/DL (1.8-2.4) L Total Bilirubin 0.5 MG/DL (0.2-1.0) Aspartate Amino Transf (AST/SGOT) 34 U/L (15-37) Alanine Aminotransferase (ALT/SGPT) 15 U/L (12-78) Alkaline Phosphatase 261 U/L (46-116) H Pro-B-Type Natriuretic Peptide 2439 pg/mL (0-125) H Total Protein 5.4 G/DL (6.4-8.2) L Albumin 1.2 G/DL (3.4-5.0) L Globulin 4.2 g/dL Albumin/Globulin Ratio 0.3 (1.0-2.7) L Current Medications Medications (Trade) Dose Ordered Sig/Iram Route PRN Reason Start Time Stop Time Status Last Admin Dose Admin Acetaminophen (Tylenol) 650 mg Q4H PRN ORAL Fever/Headache/Mild Pain 04/27/18 18:30 05/26/18 18:29 04/30/18 22:12 Atorvastatin Calcium (Lipitor) 10 mg BEDTIME GT 04/28/18 21:00 05/28/18 20:59 04/30/18 21:42 Chlorhexidine Gluconate (Letha-Hex 2%) 1 applic DAILY@1999 TOPIC 05/01/18 20:00 05/31/18 19:59 Clonidine HCl (Catapres Tab) 0.1 mg Q4H PRN ORAL SBP >160 04/28/18 11:00 05/28/18 10:59 05/01/18 09:00 Dextrose/Sodium Chloride 1,000 ml @ 100 mls/hr Q10H IV 04/29/18 07:00 05/29/18 06:59 05/01/18 05:22 Docusate Sodium (Colace) 100 mg DAILY ORAL 04/28/18 09:00 05/27/18 08:59 05/01/18 09:00 Ethambutol HCl (Myambutol) 800 mg DAILY ORAL 04/28/18 09:00 05/27/18 08:59 05/01/18 09:00 Hydralazine HCl (Apresoline) 10 mg Q4H PRN IV SBP >160 04/28/18 13:00 05/28/18 12:59 04/28/18 13:04 Ipratropium [place] (Atrovent) 500 mcg Q4HRT HHN 04/27/18 19:00 05/02/18 10:59 05/01/18 11:32 Isoniazid (Inh) 300 mg DAILY ORAL 04/28/18 09:00 05/27/18 08:59 05/01/18 09:01 Levetiracetam 750 mg/Dextrose 102.5 ml @ 440 mls/hr Q12HR IV 04/29/18 01:00 05/29/18 00:59 05/01/18 09:31 Lorazepam (Ativan 2mg/ml 1ml) 2 mg Q1H PRN IV For Seizures 04/27/18 18:30 05/04/18 12:29 04/28/18 14:15 Metoprolol Tartrate (Lopressor) 50 mg Q12HR GT 04/28/18 21:00 05/28/18 20:59 05/01/18 09:01 Minocycline HCl (Minocin) 100 mg Q12HR ORAL 04/30/18 15:30 05/07/18 15:29 05/01/18 09:01 Multivitamins Therapeutic (Therapeutic Multivitamin) 1 ea DAILY ORAL 04/28/18 09:00 05/27/18 08:59 05/01/18 09:01 Ondansetron HCl (Zofran) 4 mg Q6H PRN IVP Nausea & Vomiting 04/28/18 08:30 05/28/18 08:29 04/28/18 08:54 Pantoprazole (Protonix) 40 mg EVERY 12 HOURS IVP 04/29/18 09:00 05/29/18 08:59 05/01/18 09:01 Piperacillin Sod/ Tazobactam Sod 3.375 gm/Dextrose 100 ml @ 25 mls/hr EVERY 8 HOURS IV 04/28/18 14:00 05/03/18 13:59 05/01/18 06:00 Pyrazinamide (Pza) 1,000 mg DAILY ORAL 04/28/18 09:00 05/28/18 08:59 05/01/18 09:04 Pyridoxine HCl (Vitamin B6) 50 mg DAILY ORAL 04/28/18 09:00 05/27/18 08:59 05/01/18 09:00 Rifampin (Rifadin) 600 mg DAILY ORAL 04/28/18 09:00 05/27/18 08:59 05/01/18 09:01 Sennosides (Senokot) 2 tab BIDPRN PRN GT Constipation 04/27/18 18:30 05/27/18 18:29 Tamsulosin HCl (Flomax) 0.4 mg BEDTIME ORAL 04/27/18 21:00 05/27/18 20:59 04/30/18 21:43 Rahul Shen MD May 01, 2018 11:45
[2018-05-01] MEDS: Artificial Tears 1.4% Op Soln BOTH EYES PRN ×2 (13:30→18:10)
[2018-05-01] MEDS: LORazepam Inj 2mg/ml 1ml IV PRN (13:30)
--- NOTE | 2018-05-01 15:50 | Pulmonolgy Critical Care Note ---
Critical Care - Asmt/Plan Assessment/Plan: Assessment/Plan IMPRESSION Chronic respiratory failure Possible sepsis, left lower lobe infiltrates Pulmonary Tuberculosis on Treatment chronic encephalopathy trach debility hypoxemia htn metabolic acidosis tachypnea, improved PLAN care noted IV antibiotics reviewed respiratory care discussed vent support for now aspiration precautions supportive care as outlined monitor acid base suction as neded follow clinically for change oxygen therapy monitor hemodynamics prognosis guarded medications/laboratory data/nursing notes/ICU care reviewed in detail note reviewed and edited care discussed with RN and RT ICU time spent 38 minutes Subjective ROS Limited/Unobtainable: Yes Allergies: Coded Allergies: No Known Allergies (Unverified , 01/27/17) Subjective care discussed seen earlier more comfortable on vent Objective Last 24 Hour Vital Signs Date Time Temp Pulse Resp B/P (MAP) Pulse Ox O2 Delivery O2 Flow Rate FiO2 04/29/18 11:50 78 18 100 Mechanical Ventilator 50 04/29/18 11:49 77 18 50 04/29/18 11:00 81 23 127/59 (81) 100 04/29/18 10:00 80 20 125/57 (79) 100 04/29/18 09:16 101 32 50 04/29/18 09:00 101 25 131/60 (83) 100 04/29/18 08:58 102 113/50 04/29/18 08:00 Mechanical Ventilator 04/29/18 08:00 99.0 97 21 113/50 (71) 100 99.0 04/29/18 08:00 97 21 113/50 (71) 100 04/29/18 08:00 99 04/29/18 07:16 101 23 100 Mechanical Ventilator 50 04/29/18 07:05 103 28 100 Mechanical Ventilator 50 04/29/18 07:05 103 28 50 04/29/18 07:00 98.9 101 15 121/56 (77) 100 98.9 04/29/18 06:00 99.2 110 31 146/73 (97) 100 99.2 04/29/18 05:29 112 31 50 04/29/18 05:00 100.1 101 35 133/62 (85) 100 100.1 04/29/18 04:00 105 04/29/18 04:00 Mechanical Ventilator 04/29/18 04:00 99.0 105 30 141/76 (97) 100 99.0 04/29/18 03:17 Mechanical Ventilator 50 04/29/18 03:16 Mechanical Ventilator 50 04/29/18 03:00 98.5 105 38 136/71 (92) 100 98.5 04/29/18 02:50 112 37 50 04/29/18 02:00 99.2 109 36 135/78 (97) 100 99.2 04/29/18 01:00 100.0 112 40 143/64 (90) 100 100.0 04/29/18 00:56 112 30 50 04/29/18 00:00 108 04/29/18 00:00 50 04/29/18 00:00 Mechanical Ventilator 04/29/18 00:00 99.2 108 33 133/58 (83) 100 99.2 04/28/18 23:00 98.6 103 38 182/92 (122) 100 98.6 04/28/18 22:56 101 36 100 Mechanical Ventilator 50 04/28/18 22:50 101 35 100 Mechanical Ventilator 50 04/28/18 22:49 101 29 50 04/28/18 22:00 105 41 173/88 (116) 100 04/28/18 21:26 126 178/97 04/28/18 21:00 102 36 175/88 (117) 100 04/28/18 20:47 122 35 50 04/28/18 20:00 50 04/28/18 20:00 Mechanical Ventilator 04/28/18 20:00 122 04/28/18 20:00 100.3 123 36 169/81 (110) 100 100.3 04/28/18 19:14 123 36 100 Mechanical Ventilator 50 04/28/18 19:14 124 35 100 Mechanical Ventilator 50 04/28/18 19:12 123 36 50 04/28/18 19:00 127 35 149/76 (100) 100 04/28/18 18:09 121 38 50 04/28/18 18:00 122 45 163/85 (111) 100 04/28/18 17:00 128 41 158/90 (112) 100 04/28/18 16:21 120 28 100 T-piece 8.0 30 04/28/18 16:12 112 30 100 T-piece 8.0 30 04/28/18 16:01 98.1 110 47 148/81 (103) 100 98.1 04/28/18 16:00 30 04/28/18 16:00 117 04/28/18 16:00 T-piece 04/28/18 15:33 129 164/86 04/28/18 15:00 139 41 155/88 (110) 100 04/28/18 14:00 147 42 165/91 (115) 100 04/28/18 13:29 100.0 04/28/18 13:04 181/99 04/28/18 13:00 141 40 181/99 (126) 100 04/28/18 12:59 101.0 Intake and Output 04/28/18 04/29/18 19:00 07:00 Intake Total 1415 ml 2012.5 ml Output Total 1300 ml 1215 ml Balance 115 ml 797.5 ml IV Total 1280 ml 1922.5 ml Tube Feeding 135 ml Other 90 ml Output Urine Total 1300 ml 1215 ml Objective WDWN poorly responsive moderate breath sounds bilaterally without rhonchi or wheeze [id number] without MRG NABS nontender no HSM; gt no CCE cachectic poor response to pain skin noted appears more comfortable Microbiology Date/Time Source Procedure Growth Status 04/26/18 20:20 Blood Blood Culture - Preliminary NO GROWTH AFTER 48 HOURS Resulted 04/26/18 20:15 Blood Blood Culture - Preliminary NO GROWTH AFTER 48 HOURS Resulted 04/26/18 21:45 Nasal Nares MRSA Culture - Final NO METHICILLIN RESISTANT STAPH AUREUS... Complete 04/28/18 15:00 Urine,Clean Catch Urine Culture - Preliminary Resulted 04/26/18 22:45 Rectum VRE Culture - Final Enterococcus Faecium - Vre Complete 04/26/18 21:45 Rectum - Final NO CARBAPENEM-RESISTANT ENTEROBACTERI... Complete Laboratory Tests 04/28/18 15:40: Arterial Blood pH 7.437, Arterial Blood Partial Pressure CO2 29.1L, Arterial Blood Partial Pressure O2 58.9L, Arterial Blood HCO3 19.2L, Arterial Blood Oxygen Saturation 89.9L, Arterial Blood Base Excess -4.2, Derek Test Positive 04/28/18 16:40: Prothrombin Time 11.6H, Prothromb Time International Ratio 1.1, Activated Partial Thromboplast Time 41H, Sodium Level 138, Potassium Level 4.1, Chloride Level 104, Carbon Dioxide Level 20L, Anion Gap 14, Blood Urea Nitrogen 19H, Creatinine 0.5L, Estimat Glomerular Filtration Rate , Glucose Level 91, Lactic Acid Level 1.80, Calcium Level 8.5, Total Bilirubin 1.1H, Direct Bilirubin 0.6H , Aspartate Amino Transf (AST/SGOT) 52H, Alanine Aminotransferase (ALT/SGPT) 22 , Alkaline Phosphatase 367H, Total Creatine Kinase 48, Total Protein 6.8, Albumin 1.9L, Globulin 4.9, Albumin/Globulin Ratio 0.4L 04/29/18 04:00: Sodium Level 138, Potassium Level 2.9L, Chloride Level 103, Carbon Dioxide Level 19L, Anion Gap 16H, Blood Urea Nitrogen 21H, Creatinine 0.5L, Estimat Glomerular Filtration Rate , Glucose Level 63L, Calcium Level 8.1L, Total Bilirubin 0.7, Aspartate Amino Transf (AST/SGOT) 49H, Alanine Aminotransferase ( ALT/SGPT) 19, Alkaline Phosphatase 304H, Total Protein 6.0L, Albumin 1.6L, Globulin 4.4, Albumin/Globulin Ratio 0.4L, White Blood Count 11.7H, Red Blood Count 3.23L, Hemoglobin 7.8L, Hematocrit 24.6L, Mean Corpuscular Volume 76L, Mean Corpuscular Hemoglobin 24.2L, Mean Corpuscular Hemoglobin Concent 31.9L, Red Cell Distribution Width 18.4H, Platelet Count 236, Mean Platelet Volume 5.1L , Neutrophils (%) (Auto) , Lymphocytes (%) (Auto) , Monocytes (%) (Auto) , Eosinophils (%) (Auto) , Basophils (%) (Auto) , Differential Total Cells Counted 100, Neutrophils % (Manual) 96H, Lymphocytes % (Manual) 2L, Monocytes % (Manual) 2, Eosinophils % (Manual) 0, Basophils % (Manual) 0, Band Neutrophils 0 , Platelet Estimate Adequate, Platelet Morphology Normal, Hypochromasia 3+, Anisocytosis 2+, Microcytosis 1+, Troponin I 0.131H Current Medications Medications (Trade) Dose Ordered Sig/Iram Route PRN Reason Start Time Stop Time Status Last Admin Dose Admin Acetaminophen (Tylenol) 650 mg Q4H PRN ORAL Fever/Headache/Mild Pain 04/27/18 18:30 05/26/18 18:29 04/28/18 12:59 Atorvastatin Calcium (Lipitor) 10 mg BEDTIME GT 04/28/18 21:00 05/28/18 20:59 04/28/18 21:26 Clonidine HCl (Catapres Tab) 0.1 mg Q4H PRN ORAL SBP >160 04/28/18 11:00 05/28/18 10:59 04/28/18 10:49 Dextrose/Sodium Chloride 1,000 ml @ 100 mls/hr Q10H IV 04/29/18 07:00 05/29/18 06:59 04/29/18 06:58 Docusate Sodium (Colace) 100 mg DAILY ORAL 04/28/18 09:00 05/27/18 08:59 04/29/18 08:57 Ethambutol HCl (Myambutol) 800 mg DAILY ORAL 04/28/18 09:00 05/27/18 08:59 04/29/18 08:58 Hydralazine HCl (Apresoline) 10 mg Q4H PRN IV SBP >160 04/28/18 13:00 05/28/18 12:59 04/28/18 13:04 Ipratropium [place] (Atrovent) 500 mcg Q4HRT HHN 04/27/18 19:00 05/02/18 10:59 04/29/18 11:49 Isoniazid (Inh) 300 mg DAILY ORAL 04/28/18 09:00 05/27/18 08:59 04/29/18 08:57 Levetiracetam 750 mg/Dextrose 102.5 ml @ 440 mls/hr Q12HR IV 04/29/18 01:00 05/29/18 00:59 04/29/18 10:04 Lorazepam (Ativan 2mg/ml 1ml) 2 mg Q1H PRN IV For Seizures 04/27/18 18:30 05/04/18 12:29 04/28/18 14:15 Metoprolol Tartrate (Lopressor) 50 mg Q12HR GT 04/28/18 21:00 05/28/18 20:59 04/29/18 08:58 Multivitamins Therapeutic (Therapeutic Multivitamin) 1 ea DAILY ORAL 04/28/18 09:00 05/27/18 08:59 04/29/18 08:57 Ondansetron HCl (Zofran) 4 mg Q6H PRN IVP Nausea & Vomiting 04/28/18 08:30 05/28/18 08:29 04/28/18 08:54 Pantoprazole (Protonix) 40 mg EVERY 12 HOURS IVP 04/29/18 09:00 05/29/18 08:59 04/29/18 08:57 Piperacillin Sod/ Tazobactam Sod 3.375 gm/Dextrose 100 ml @ 25 mls/hr EVERY 8 HOURS IV 04/28/18 14:00 05/03/18 13:59 04/29/18 06:28 Potassium Chloride 100 ml @ 50 mls/hr Q2H IVPB 04/29/18 09:30 04/29/18 13:29 04/29/18 10:18 Pyrazinamide (Pza) 1,000 mg DAILY ORAL 04/28/18 09:00 05/28/18 08:59 04/29/18 08:58 Pyridoxine HCl (Vitamin B6) 50 mg DAILY ORAL 04/28/18 09:00 05/27/18 08:59 04/29/18 08:57 Rifampin (Rifadin) 600 mg DAILY ORAL 04/28/18 09:00 05/27/18 08:59 04/29/18 08:57 Sennosides (Senokot) 2 tab BIDPRN PRN GT Constipation 04/27/18 18:30 05/27/18 18:29 Tamsulosin HCl (Flomax) 0.4 mg BEDTIME ORAL 04/27/18 21:00 05/27/18 20:59 04/28/18 21:25 Time of note does not reflect time patient seen Critical Care - Objective Last 24 Hour Vital Signs Date Time Temp Pulse Resp B/P (MAP) Pulse Ox O2 Delivery O2 Flow Rate FiO2 05/01/18 15:15 85 31 100 Mechanical Ventilator 30 05/01/18 14:56 85 31 30 05/01/18 14:33 179/91 05/01/18 13:00 170/85 05/01/18 12:42 78 38 30 05/01/18 12:00 Mechanical Ventilator 05/01/18 12:00 98.4 75 39 164/70 (101) 100 98.4 05/01/18 12:00 30 05/01/18 12:00 67 05/01/18 11:42 77 32 100 Mechanical Ventilator 30 05/01/18 11:32 74 35 100 Mechanical Ventilator 30 05/01/18 11:29 74 35 30 05/01/18 11:00 74 35 158/66 (96) 100 05/01/18 10:00 68 22 149/66 (93) 100 05/01/18 09:01 74 162/68 05/01/18 09:00 162/68 05/01/18 09:00 73 32 159/71 (100) 100 05/01/18 08:54 81 36 30 05/01/18 08:00 82 05/01/18 08:00 98.8 74 35 152/67 (95) 100 98.8 05/01/18 08:00 30 05/01/18 08:00 Mechanical Ventilator 05/01/18 07:12 74 32 100 Mechanical Ventilator 30 05/01/18 07:02 79 34 100 Mechanical Ventilator 30 05/01/18 07:00 74 32 148/65 (92) 100 05/01/18 06:55 73 34 30 05/01/18 06:00 71 26 143/64 (90) 100 05/01/18 05:10 89 30 30 05/01/18 05:00 75 28 140/64 (89) 100 05/01/18 04:00 Mechanical Ventilator 05/01/18 04:00 99.0 72 26 126/58 (80) 100 99.0 05/01/18 04:00 70 05/01/18 03:30 71 29 100 Mechanical Ventilator 30 05/01/18 03:20 73 31 100 Mechanical Ventilator 30 05/01/18 03:20 73 31 30 05/01/18 03:00 74 24 126/59 (81) 100 05/01/18 02:00 77 25 119/57 (77) 100 05/01/18 01:15 74 29 30 05/01/18 01:00 75 30 119/53 (75) 100 05/01/18 00:00 99.5 73 27 119/69 (86) 100 99.5 05/01/18 00:00 Mechanical Ventilator 05/01/18 00:00 30 05/01/18 00:00 77 04/30/18 23:14 75 25 100 Mechanical Ventilator 30 04/30/18 23:04 75 25 100 Mechanical Ventilator 30 04/30/18 23:03 75 25 30 04/30/18 23:00 74 28 134/58 (83) 100 04/30/18 22:42 99.9 04/30/18 22:12 100.8 04/30/18 22:00 100.8 76 28 129/59 (82) 100 100.8 04/30/18 21:42 86 136/59 04/30/18 21:21 80 30 30 04/30/18 21:00 86 32 136/59 (84) 100 04/30/18 20:00 Mechanical Ventilator 04/30/18 20:00 99.0 84 33 136/60 (85) 100 99.0 04/30/18 20:00 30 04/30/18 19:47 88 31 100 Mechanical Ventilator 30 04/30/18 19:37 86 30 100 Mechanical Ventilator 30 04/30/18 19:35 86 30 30 04/30/18 19:20 82 04/30/18 19:00 97.8 83 29 120/53 (75) 100 97.8 04/30/18 18:00 97.8 72 21 119/53 (75) 100 97.8 04/30/18 17:00 98.0 75 22 116/51 (72) 100 98.0 04/30/18 16:48 74 22 30 04/30/18 16:00 Mechanical Ventilator 04/30/18 16:00 73 04/30/18 16:00 97.8 69 22 123/55 (77) 100 97.8 04/30/18 15:56 Mechanical Ventilator 04/30/18 15:54 Mechanical Ventilator Micro: Microbiology Date/Time Source Procedure Growth Status 04/28/18 17:30 Sputum Gram Stain - Final Resulted 04/28/18 17:30 Sputum Culture - Preliminary Gram Negative Bacillus 1 Gram Negative Bacillus 1#2 Resulted Critical Care - Subjective ROS Limited/Unobtainable: No FI02: 30 Vent Support Breath Rate: 12 Vent Support Mode: AC Vent Tidal Volume: 500 Sputum Amount: Moderate PEEP: 5.0 PIP: 26 Tube Feeding Amount: 60 I&O: Intake and Output 04/30/18 05/01/18 19:00 07:00 Intake Total 2065 ml 2448 ml Output Total 300 ml 445 ml Balance 1765 ml 2003 ml Free Water 50 ml 50 ml IV Total 1490 ml 1628 ml Tube Feeding 425 ml 720 ml Other 100 ml 50 ml Output Urine Total 300 ml 445 ml # Bowel Movements 2 Jones Rasmussen MD May 01, 2018 15:50
[2018-05-01] MEDS ORDERED: Dyna-Hex 2% Top Sol 2oz TOPIC SCH (20:00)
[2018-05-01] MEDS ORDERED: D5NS 1000ml IV ONE ×2 (20:00→20:11)
[2018-05-01] MEDS ORDERED: Tubing IV Blood Pump IV ONE (20:00)
[2018-05-01] MEDS ORDERED: Tubing IV Secondary IV ONE ×2 (20:00→20:10)
[2018-05-01] MEDS ORDERED: NS 275ml ONE ×2 (20:00→20:10)
[2018-05-01] MEDS ORDERED: Sterile Water Irrig 1000ml IRRIG ONE (20:11)
[2018-05-01] MEDS: Atorvastatin 20mg tab GT SCH (20:34)
[2018-05-01] MEDS: Tamsulosin 0.4mg cap ORAL SCH (20:35)
--- NOTE | 2018-05-01 21:20 | Neurology Progress Note ---
Interim History Interim History Interim History Mr. Narvaez continues to be poorly responsive. There has been no improvement in his mental state. He continues to be seizure-free. He continues to be non-functional. Review of Systems Neuro Review of Systems Unable to obtain. Objective Physical Exam Last Vital Signs Date Time Temp Pulse Resp B/P (MAP) Pulse Ox O2 Delivery O2 Flow Rate FiO2 05/01/18 20:35 67 148/74 05/01/18 20:06 30 05/01/18 20:03 Mechanical Ventilator 05/01/18 20:00 97.4 24 100 97.4 04/28/18 19:14 Laboratory Tests Test 05/01/18 03:45 White Blood Count 9.3 K/UL (4.8-10.8) Red Blood Count 3.33 M/UL (4.70-6.10) L Hemoglobin 8.2 G/DL (14.2-18.0) L Hematocrit 25.4 % (42.0-52.0) L Mean Corpuscular Volume 76 FL (80-99) L Mean Corpuscular Hemoglobin 24.7 PG (27.0-31.0) L Mean Corpuscular Hemoglobin Concent 32.3 G/DL (32.0-36.0) Red Cell Distribution Width 17.3 % (11.6-14.8) H Platelet Count 202 K/UL (150-450) Mean Platelet Volume 5.7 FL (6.5-10.1) L Neutrophils (%) (Auto) % (45.0-75.0) Lymphocytes (%) (Auto) % (20.0-45.0) Monocytes (%) (Auto) % (1.0-10.0) Eosinophils (%) (Auto) % (0.0-3.0) Basophils (%) (Auto) % (0.0-2.0) Differential Total Cells Counted 100 Neutrophils % (Manual) 85 % (45-75) H Lymphocytes % (Manual) 11 % (20-45) L Monocytes % (Manual) 4 % (1-10) Eosinophils % (Manual) 0 % (0-3) Basophils % (Manual) 0 % (0-2) Band Neutrophils 0 % (0-8) Platelet Estimate Adequate Platelet Morphology Normal Anisocytosis 1+ Microcytosis 2+ Sodium Level 137 MMOL/L (136-145) Potassium Level 2.8 MMOL/L (3.5-5.1) L Chloride Level 107 MMOL/L (98-107) Carbon Dioxide Level 22 MMOL/L (21-32) Anion Gap 8 mmol/L (5-15) Blood Urea Nitrogen 20 mg/dL (7-18) H Creatinine 0.6 MG/DL (0.55-1.30) Estimat Glomerular Filtration Rate mL/min (>60) Glucose Level 144 MG/DL (74-106) H Calcium Level 7.7 MG/DL (8.5-10.1) L Magnesium Level 1.4 MG/DL (1.8-2.4) L Total Bilirubin 0.5 MG/DL (0.2-1.0) Aspartate Amino Transf (AST/SGOT) 34 U/L (15-37) Alanine Aminotransferase (ALT/SGPT) 15 U/L (12-78) Alkaline Phosphatase 261 U/L (46-116) H Pro-B-Type Natriuretic Peptide 2439 pg/mL (0-125) H Total Protein 5.4 G/DL (6.4-8.2) L Albumin 1.2 G/DL (3.4-5.0) L Globulin 4.2 g/dL Albumin/Globulin Ratio 0.3 (1.0-2.7) L Neurologic Exam Objective PHYSICAL EXAMINATION: GENERAL: He is a well-developed, ill-looking black gentleman, lying in an ICU bed, in no acute distress. HEAD: Normocephalic and atraumatic. EENT: Examination benign. NECK: No neck rigidity was observed. NEUROLOGICAL EXAMINATION: MENTAL STATUS EXAMINATION: He did not arouse even on deep painful stimulation. He was unable to follow any commands and unable to communicate in any manner. SPEECH: Could not be tested. LANGUAGE: Could not be tested. CRANIAL NERVE EXAMINATION: II: He did not blink to threat. III, IV & : External ocular movements were present on oculocephalic maneuvers. The pupils were 3 mm in diameter, equal, round, regular, and reactive sluggishly to light. V & VII: The corneal reflexes were present bilaterally. However, the right- sided reflex was significantly diminished compared to the left. VIII: He seemed to be able to hear and had no nystagmus. IX & X: Gag reflex was suppressed. XI: The sternocleidomastoids and trapezii functioned minimally. XII: The tongue was in the midline. MOTOR SYSTEM: The tone was increased in all four extremities with spasticity more marked on the right than on the left. Examination of muscle mass revealed generalized muscle wasting, again more marked on the right than on the left. Examination of power was impossible to perform on individual muscle groups. However, he did move all four extremities on deep pain with possibly right greater than left-sided weakness. SENSORY EXAMINATION: He responded appropriately to deep pain with less vigorous responses on the right side compared to the left. REFLEXES: Trace+ and bilaterally symmetrical at the biceps, triceps, brachioradialis. 0 at both knees and ankles. The plantar responses were extensor bilaterally. COORDINATION, STANCE & GAIT: Could not be tested. Impression/Recommendations Diagnostic Impression 1. Mr. Sagar Narvaez is a 72-year-old, [place] gentleman, of unknown handedness, who does have a past history of cerebrovascular disease with a prior stroke, pulmonary tuberculosis, chronic respiratory failure for which he has tracheostomy, and dysphagia for which he has a gastrostomy; who [facility] where he was noted to have an alteration in his mental state in the form of increased lethargy. He was thus brought into the [facility] emergency room and following admission, he apparently spiked a fever to 103 degrees Fahrenheit followed by multiple seizures. He was cooled down, given Ativan and started on Keppra and has been seizure-free since then. 2. He continues to be poorly responsive. There has been no improvement in his mental state. He continues to be seizure-free. He continues to be non- functional. 3. On neurological examination, at this time, he cannot be aroused even on deep pain. His corneal reflex is diminished on the right side compared to the left. 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 In addition, he responds to deep pain, less on the right than on the left. His deep tendon reflexes are globally diminished and his plantar responses are extensor bilaterally. 4. Laboratory data on my initial evaluation revealed that his WBC count is creeping up from 4.4 to 9.5. He is significantly anemic with a hemoglobin of 8.8 G. His chemistry panel reveals that his bilirubin is elevated to 1.1. His alkaline phosphatase is elevated to 367, his AST is elevated to 52. His albumin is low at 1.9. His arterial blood gas reveals a pCO2 of 29 and a pO2 of 59 with a pH of 7.43. His urinalysis reveals 2+ leukocyte esterase with 2-4 RBCs and 2-4 WBCs per high-power field. 5. The EEG done on 04/27/18 revealed a moderately severe encephalopathy and left > right hemispheric dysfunction. No inter-ictal discharges were seen. 6. The CT of the brain done on 04/30/18 revealed multiple old bilateral cerebral infarcts involving the left > right brain. 7. 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 Recommendations 1. Continue present management. 2. Continue Keppra 750 mg q.12 hours. 3. Observe. Mercedes Coelho M.D., M.S.[facility]. [facility]ELHO May 01, 2018 21:20
[2018-05-02] VITALS (19 sets, daily range): BP systolic 108–145; BP diastolic 57–71
--- NOTE | 2018-05-02 00:45 | Progress Note ---
DATE: 05/01/2018 CARDIOLOGY PROGRESS NOTE SUBJECTIVE: The patient remains in the intensive care unit. Condition remains critical with guarded prognosis. The patient is status post endoscopy. No active bleeding was noted. He remains on ventilator support. OBJECTIVE: VITAL SIGNS: Blood pressure 127/59, pulse 81, and respirations 23. Heart rate is in the range of 75 to 110. Monitored rhythm, sinus and sinus bradycardia. HEENT: Thin trach secretions. LUNGS: Bilateral rhonchi. HEART: Regular rhythm and rate. Normal S1, S2. ABDOMEN: Soft. Mild ascites. EXTREMITIES: No edema. LABORATORY DATA: White count 9.3 and hemoglobin 8.2. Sodium 137 and potassium 2.8. BUN 20, creatinine 0.6, bicarb 22, and magnesium 1.4. Pro-natriuretic peptide 2400. Albumin 1.2. IMPRESSION: 1. Ventilator-dependent respiratory failure. 2. Hypokalemia. 3. Hypomagnesemia. 4. Healthcare-acquired pneumonia. 5. Pulmonary tuberculosis, on therapy. 6. Sepsis with recovered shock. 7. Hypoxia. 8. Metabolic acidosis. 9. Remains critical and guarded. 10. Acute diastolic congestive heart failure. PLAN: 1. Antimicrobials. 2. Ventilator support. 3. Replace potassium and magnesium intravenously. 4. Nutrition by feeding tube. 5. No antiarrhythmic therapy presently indicated. 6. Monitor volume status. 7. We will consider diuresis after review of chest x-ray. Jones Arauz M.D. DR: ERICA JOB#: [id number] CC:
[2018-05-02] MEDS: Ipratropium 0.02% Inh Soln 2.5ml UD HHN SCH ×3 (03:42→10:43)
[2018-05-02 05:36] LABS: ALANINE AMINOTRANSFERASE 15 U/L (12-78); ALBUMIN 1.1 G/DL (3.4-5.0); ALBUMIN/GLOBULIN RATIO 0.3 (1.0-2.7); ALKALINE PHOSPHATASE 248 U/L (46-116); ANION GAP 5 mmol/L (5-15); ASPARTATE AMINO TRANSFERASE 31 U/L (15-37); BILIRUBIN,TOTAL 0.4 MG/DL (0.2-1.0); BLOOD UREA NITROGEN 20 mg/dL (7-18); CALCIUM 7.4 MG/DL (8.5-10.1); CARBON DIOXIDE 26 MMOL/L (21-32); CHLORIDE 107 MMOL/L (98-107); CREATININE 0.5 MG/DL (0.55-1.30); PHOSPHORUS 1.6 MG/DL (2.5-4.9); POTASSIUM 3.4 MMOL/L (3.5-5.1); SODIUM 138 MMOL/L (136-145)
[2018-05-02 06:08] LABS: HEMATOCRIT 24.1 % (42.0-52.0); HEMOGLOBIN 7.9 G/DL (14.2-18.0); MEAN CORPUSCULAR VOLUME 76 FL (80-99); PLATELET COUNT 177 K/UL (150-450); RED BLOOD COUNT 3.16 M/UL (4.70-6.10); RED CELL DISTRIBUTION WIDTH 17.7 % (11.6-14.8); WHITE BLOOD COUNT 6.1 K/UL (4.8-10.8)
--- NOTE | 2018-05-02 07:42 | General Progress Note ---
Assessment/Plan Problem List: (1) Status epilepticus ICD Codes: G40.901 - Epilepsy, unspecified, not intractable, with status epilepticus SNOMED: 173916078 (2) Encephalopathy acute ICD Codes: G93.40 - Encephalopathy, unspecified SNOMED: 09236170, 067859348 (3) Probable sepsis ICD Codes: A41.9 - Sepsis, unspecified organism SNOMED: 745379556 (4) Dementia ICD Codes: F03.90 - Unspecified dementia without behavioral disturbance SNOMED: 95689537 (5) Encephalopathy ICD Codes: G93.40 - Encephalopathy, unspecified SNOMED: 81175782 (6) Sepsis ICD Codes: A41.9 - Sepsis, unspecified organism SNOMED: 72316388 (7) Pulmonary tuberculosis ICD Codes: A15.0 - Tuberculosis of lung SNOMED: 761257281 (8) Dehydration ICD Codes: E86.0 - Dehydration SNOMED: 26797645 (9) Altered level of consciousness ICD Codes: R40.4 - Transient alteration of awareness SNOMED: 8449030 Status: stable Assessment/Plan vent support resp rx PPI rx abx per ID TB rx sz rx per neuro monitor HR b-blockade CT head- chronic microvascular dz/old strokes. will d/w GI baby asa. replace lytes Subjective ROS Limited/Unobtainable: Yes Constitutional: Reports: malaise, weakness HEENT: Reports: no symptoms Cardiovascular: Reports: no symptoms Respiratory: Reports: no symptoms Gastrointestinal/Abdominal: Reports: difficulty swallowing Genitourinary: Reports: no symptoms Neurologic/Psychiatric: Reports: pre-existing deficit, seizure Endocrine: Reports: no symptoms Hematologic/Lymphatic: Reports: anemia Allergies: Coded Allergies: No Known Allergies (Unverified , 01/27/17) All Systems: reviewed and negative except above Subjective remains stable. opens eyes according to family. no fevers. no szs. labs reviewed. Objective Last 24 Hour Vital Signs Date Time Temp Pulse Resp B/P (MAP) Pulse Ox O2 Delivery O2 Flow Rate FiO2 05/02/18 07:18 68 27 100 Mechanical Ventilator 30 05/02/18 06:04 70 16 111/59 (76) 100 05/02/18 05:21 73 26 30 05/02/18 05:00 71 25 132/64 (86) 100 05/02/18 04:00 30 05/02/18 04:00 97.1 68 20 131/64 (86) 100 97.1 05/02/18 04:00 Mechanical Ventilator 05/02/18 04:00 68 05/02/18 03:41 66 24 100 Mechanical Ventilator 30 05/02/18 03:29 67 25 100 Mechanical Ventilator 30 05/02/18 03:29 67 25 30 05/02/18 03:00 67 24 127/62 (83) 100 05/02/18 02:00 68 27 132/64 (86) 100 05/02/18 01:14 68 26 30 05/02/18 01:00 68 25 108/57 (74) 100 05/02/18 00:00 66 05/02/18 00:00 Mechanical Ventilator 05/02/18 00:00 30 05/02/18 00:00 97.7 66 17 122/68 (86) 100 97.7 05/01/18 23:29 70 20 100 Mechanical Ventilator 30 05/01/18 23:19 67 27 100 Mechanical Ventilator 30 05/01/18 23:18 67 27 30 05/01/18 23:00 68 28 110/52 (71) 100 05/01/18 22:00 64 30 114/57 (76) 100 05/01/18 21:24 66 31 30 05/01/18 21:00 69 29 189/76 (113) 99 05/01/18 20:35 67 148/74 05/01/18 20:06 30 05/01/18 20:06 77 05/01/18 20:03 Mechanical Ventilator 05/01/18 20:00 97.4 77 24 160/74 (102) 100 97.4 05/01/18 19:50 69 29 100 Mechanical Ventilator 30 05/01/18 19:42 74 34 100 Mechanical Ventilator 30 05/01/18 19:29 74 34 30 05/01/18 19:00 77 32 128/66 (86) 100 05/01/18 18:00 82 30 156/67 (96) 100 05/01/18 17:00 71 34 148/59 (88) 100 05/01/18 16:32 75 31 30 05/01/18 16:00 Mechanical Ventilator 05/01/18 16:00 98.4 76 35 148/59 (88) 100 98.4 05/01/18 16:00 67 05/01/18 16:00 30 05/01/18 15:25 86 30 100 Mechanical Ventilator 30 05/01/18 15:15 85 31 100 Mechanical Ventilator 30 05/01/18 15:00 83 32 127/65 (85) 100 05/01/18 14:56 85 31 30 05/01/18 14:33 179/91 05/01/18 14:00 94 39 166/101 (122) 100 05/01/18 13:00 77 38 171/80 (110) 100 05/01/18 13:00 170/85 05/01/18 12:42 78 38 30 05/01/18 12:00 Mechanical Ventilator 05/01/18 12:00 98.4 75 39 164/70 (101) 100 98.4 05/01/18 12:00 30 05/01/18 12:00 67 05/01/18 11:42 77 32 100 Mechanical Ventilator 30 05/01/18 11:32 74 35 100 Mechanical Ventilator 30 05/01/18 11:29 74 35 30 05/01/18 11:00 74 35 158/66 (96) 100 05/01/18 10:00 68 22 149/66 (93) 100 05/01/18 09:01 74 162/68 05/01/18 09:00 162/68 05/01/18 09:00 73 32 159/71 (100) 100 05/01/18 08:54 81 36 30 05/01/18 08:00 82 05/01/18 08:00 98.8 74 35 152/67 (95) 100 98.8 05/01/18 08:00 30 05/01/18 08:00 Mechanical Ventilator Intake and Output 05/01/18 05/02/18 19:00 07:00 Intake Total 2597.5 ml 1622.5 ml Output Total 775 ml 670 ml Balance 1822.5 ml 952.5 ml Free Water 100 ml IV Total 1777.5 ml 902.5 ml Tube Feeding 720 ml 660 ml Other 60 ml Output Urine Total 775 ml 670 ml # Bowel Movements 2 Laboratory Tests 05/02/18 04:00: White Blood Count 6.1, Red Blood Count 3.16L, Hemoglobin 7.9L, Hematocrit 24.1L , Mean Corpuscular Volume 76L, Mean Corpuscular Hemoglobin 25.0L, Mean Corpuscular Hemoglobin Concent 32.8, Red Cell Distribution Width 17.7H, Platelet Count 177, Mean Platelet Volume 5.9L, Neutrophils (%) (Auto) , Lymphocytes (%) (Auto) , Monocytes (%) (Auto) , Eosinophils (%) (Auto) , Basophils (%) (Auto) , Neutrophils % (Manual) [Pending], Lymphocytes % (Manual) [Pending], Platelet Estimate [Pending], Platelet Morphology [Pending], Sodium Level 138, Potassium Level 3.4L, Chloride Level 107, Carbon Dioxide Level 26, Anion Gap 5, Blood Urea Nitrogen 20H, Creatinine 0.5L, Estimat Glomerular Filtration Rate , Glucose Level 107H, Calcium Level 7.4L, Phosphorus Level 1.6L , Magnesium Level 1.6L, Total Bilirubin 0.4, Aspartate Amino Transf (AST/SGOT) 31, Alanine Aminotransferase (ALT/SGPT) 15, Alkaline Phosphatase 248H, Total Protein 5.0L, Albumin 1.1L, Globulin 3.9, Albumin/Globulin Ratio 0.3L Height (Feet): 5 Height (Inches): 7.00 Weight (Pounds): 142 Objective General Appearance: WD/WN, cachetic, thin Neck: supple Cardiovascular: tachycardia Respiratory/Chest: rhonchi - bilaterally Abdomen: normal bowel sounds, non tender, soft, no organomegaly Edema: no edema noted Arm (L), no edema noted Arm (R), no edema noted Leg (L), no edema noted Leg (R), no edema noted Pedal (L), no edema noted Pedal (R), no edema noted Generalized Jarrod Vásquez MD May 02, 2018 07:42
--- NOTE | 2018-05-02 08:16 | Pulmonology Progress Note ---
Assessment/Plan Assessment/Plan IMPRESSION respiratory failure possible sepsis chronic encephalopathy trach debility hypoxemia htn metabolic acidosis ho hypertension ho seizures abnormal imaging PLAN care noted IV antibiotics noted respiratory care vent support for now ? wean aspiration precautions and monitor supportive care as outlined monitor acid base and intervene suction PRN follow clinically for change oxygen therapy monitor hemodynamics and adjust prognosis guarded at present needs full care medications/laboratory data/nursing notes/ICU care reviewed in detail note reviewed and edited care discussed with RN and RT ICU time spent 40 minutes Subjective ROS Limited/Unobtainable: Yes Allergies: Coded Allergies: No Known Allergies (Unverified , 01/27/17) Subjective care discussed on vent events reviewed comfortable hemodynamics reviewed Objective Last 24 Hour Vital Signs Date Time Temp Pulse Resp B/P (MAP) Pulse Ox O2 Delivery O2 Flow Rate FiO2 05/02/18 07:40 80 24 30 05/02/18 07:39 67 21 100 Mechanical Ventilator 30 05/02/18 07:18 68 27 100 Mechanical Ventilator 30 05/02/18 06:04 70 16 111/59 (76) 100 05/02/18 05:21 73 26 30 05/02/18 05:00 71 25 132/64 (86) 100 05/02/18 04:00 30 05/02/18 04:00 97.1 68 20 131/64 (86) 100 97.1 05/02/18 04:00 Mechanical Ventilator 05/02/18 04:00 68 05/02/18 03:41 66 24 100 Mechanical Ventilator 30 05/02/18 03:29 67 25 100 Mechanical Ventilator 30 05/02/18 03:29 67 25 30 05/02/18 03:00 67 24 127/62 (83) 100 05/02/18 02:00 68 27 132/64 (86) 100 05/02/18 01:14 68 26 30 05/02/18 01:00 68 25 108/57 (74) 100 05/02/18 00:00 66 05/02/18 00:00 Mechanical Ventilator 05/02/18 00:00 30 05/02/18 00:00 97.7 66 17 122/68 (86) 100 97.7 05/01/18 23:29 70 20 100 Mechanical Ventilator 30 05/01/18 23:19 67 27 100 Mechanical Ventilator 30 05/01/18 23:18 67 27 30 05/01/18 23:00 68 28 110/52 (71) 100 05/01/18 22:00 64 30 114/57 (76) 100 05/01/18 21:24 66 31 30 05/01/18 21:00 69 29 189/76 (113) 99 05/01/18 20:35 67 148/74 05/01/18 20:06 30 05/01/18 20:06 77 05/01/18 20:03 Mechanical Ventilator 05/01/18 20:00 97.4 77 24 160/74 (102) 100 97.4 05/01/18 19:50 69 29 100 Mechanical Ventilator 30 05/01/18 19:42 74 34 100 Mechanical Ventilator 30 05/01/18 19:29 74 34 30 05/01/18 19:00 77 32 128/66 (86) 100 05/01/18 18:00 82 30 156/67 (96) 100 05/01/18 17:00 71 34 148/59 (88) 100 05/01/18 16:32 75 31 30 05/01/18 16:00 Mechanical Ventilator 05/01/18 16:00 98.4 76 35 148/59 (88) 100 98.4 05/01/18 16:00 67 05/01/18 16:00 30 05/01/18 15:25 86 30 100 Mechanical Ventilator 30 05/01/18 15:15 85 31 100 Mechanical Ventilator 30 05/01/18 15:00 83 32 127/65 (85) 100 05/01/18 14:56 85 31 30 05/01/18 14:33 179/91 05/01/18 14:00 94 39 166/101 (122) 100 05/01/18 13:00 77 38 171/80 (110) 100 05/01/18 13:00 170/85 05/01/18 12:42 78 38 30 05/01/18 12:00 Mechanical Ventilator 05/01/18 12:00 98.4 75 39 164/70 (101) 100 98.4 05/01/18 12:00 30 05/01/18 12:00 67 05/01/18 11:42 77 32 100 Mechanical Ventilator 30 05/01/18 11:32 74 35 100 Mechanical Ventilator 30 05/01/18 11:29 74 35 30 05/01/18 11:00 74 35 158/66 (96) 100 05/01/18 10:00 68 22 149/66 (93) 100 05/01/18 09:01 74 162/68 05/01/18 09:00 162/68 05/01/18 09:00 73 32 159/71 (100) 100 05/01/18 08:54 81 36 30 Intake and Output 05/01/18 05/02/18 19:00 07:00 Intake Total 2597.5 ml 1622.5 ml Output Total 775 ml 670 ml Balance 1822.5 ml 952.5 ml Free Water 100 ml IV Total 1777.5 ml 902.5 ml Tube Feeding 720 ml 660 ml Other 60 ml Output Urine Total 775 ml 670 ml # Bowel Movements 2 Objective WDWN poorly responsive and overall same moderate breath sounds bilaterally without rhonchi or wheeze [id number] without MRG NABS nontender no HSM; gt no CCE cachectic poor response to pain skin noted comfortable reviewed and edited Laboratory Tests 05/02/18 04:00: White Blood Count 6.1, Red Blood Count 3.16L, Hemoglobin 7.9L, Hematocrit 24.1L , Mean Corpuscular Volume 76L, Mean Corpuscular Hemoglobin 25.0L, Mean Corpuscular Hemoglobin Concent 32.8, Red Cell Distribution Width 17.7H, Platelet Count 177, Mean Platelet Volume 5.9L, Neutrophils (%) (Auto) , Lymphocytes (%) (Auto) , Monocytes (%) (Auto) , Eosinophils (%) (Auto) , Basophils (%) (Auto) , Neutrophils % (Manual) [Pending], Lymphocytes % (Manual) [Pending], Platelet Estimate [Pending], Platelet Morphology [Pending], Sodium Level 138, Potassium Level 3.4L, Chloride Level 107, Carbon Dioxide Level 26, Anion Gap 5, Blood Urea Nitrogen 20H, Creatinine 0.5L, Estimat Glomerular Filtration Rate , Glucose Level 107H, Calcium Level 7.4L, Phosphorus Level 1.6L , Magnesium Level 1.6L, Total Bilirubin 0.4, Aspartate Amino Transf (AST/SGOT) 31, Alanine Aminotransferase (ALT/SGPT) 15, Alkaline Phosphatase 248H, Total Protein 5.0L, Albumin 1.1L, Globulin 3.9, Albumin/Globulin Ratio 0.3L Current Medications Medications (Trade) Dose Ordered Sig/Iram Route PRN Reason Start Time Stop Time Status Last Admin Dose Admin Acetaminophen (Tylenol) 650 mg Q4H PRN ORAL Fever/Headache/Mild Pain 04/27/18 18:30 05/26/18 18:29 04/30/18 22:12 Artificial Tears (Akwa-Tears) 2 drop FIVE TIMES A DAY PRN BOTH EYES Dry Eyes 05/01/18 11:45 05/31/18 11:44 05/01/18 18:10 Atorvastatin Calcium (Lipitor) 10 mg BEDTIME GT 04/28/18 21:00 05/28/18 20:59 05/01/18 20:34 Chlorhexidine Gluconate (Letha-Hex 2%) 1 applic DAILY@2000 TOPIC 05/01/18 20:00 05/31/18 19:59 05/01/18 20:34 Clonidine HCl (Catapres Tab) 0.1 mg Q4H PRN ORAL SBP >160 04/28/18 11:00 05/28/18 10:59 05/01/18 14:33 Dextrose/Sodium Chloride 1,000 ml @ 50 mls/hr Q20H IV 05/01/18 21:22 05/29/18 21:21 05/01/18 21:57 Docusate Sodium (Colace) 100 mg DAILY ORAL 04/28/18 09:00 05/27/18 08:59 05/01/18 09:00 Ethambutol HCl (Myambutol) 800 mg DAILY ORAL 04/28/18 09:00 05/27/18 08:59 05/01/18 09:00 Hydralazine HCl (Apresoline) 10 mg Q4H PRN IV SBP >160 04/28/18 13:00 05/28/18 12:59 05/01/18 13:00 Ipratropium [place] (Atrovent) 500 mcg Q4HRT HHN 04/27/18 19:00 05/02/18 10:59 05/02/18 07:18 Isoniazid (Inh) 300 mg DAILY ORAL 04/28/18 09:00 05/27/18 08:59 05/01/18 09:01 Levetiracetam 750 mg/Dextrose 102.5 ml @ 440 mls/hr Q12HR IV 04/29/18 01:00 05/29/18 00:59 05/01/18 21:15 Lorazepam (Ativan 2mg/ml 1ml) 2 mg Q1H PRN IV For Seizures 04/27/18 18:30 05/04/18 12:29 05/01/18 13:30 Magnesium Sulfate 100 ml @ 100 mls/hr Q1H IVPB 05/02/18 08:30 05/02/18 10:29 Metoprolol Tartrate (Lopressor) 50 mg Q12HR GT 04/28/18 21:00 05/28/18 20:59 05/01/18 20:35 Minocycline HCl (Minocin) 100 mg Q12HR ORAL 04/30/18 15:30 05/07/18 15:29 05/01/18 20:36 Multivitamins Therapeutic (Therapeutic Multivitamin) 1 ea DAILY ORAL 04/28/18 09:00 05/27/18 08:59 05/01/18 09:01 Ondansetron HCl (Zofran) 4 mg Q6H PRN IVP Nausea & Vomiting 04/28/18 08:30 05/28/18 08:29 04/28/18 08:54 Pantoprazole (Protonix) 40 mg EVERY 12 HOURS IVP 04/29/18 09:00 05/29/18 08:59 05/01/18 20:35 Phosphorus (Phospha 250 Neutral) 250 mg THREE TIMES A DAY ORAL 05/02/18 09:00 05/04/18 08:59 Piperacillin Sod/ Tazobactam Sod 3.375 gm/Dextrose 100 ml @ 25 mls/hr EVERY 8 HOURS IV 04/28/18 14:00 05/03/18 13:59 05/02/18 05:49 Potassium Chloride (K-Dur) 40 meq ONCE GT 05/02/18 08:00 05/02/18 10:00 Pyrazinamide (Pza) 1,000 mg DAILY ORAL 04/28/18 09:00 05/28/18 08:59 05/01/18 09:04 Pyridoxine HCl (Vitamin B6) 50 mg DAILY ORAL 04/28/18 09:00 05/27/18 08:59 05/01/18 09:00 Rifampin (Rifadin) 600 mg DAILY ORAL 04/28/18 09:00 05/27/18 08:59 05/01/18 09:01 Sennosides (Senokot) 2 tab BIDPRN PRN GT Constipation 04/27/18 18:30 05/27/18 18:29 Tamsulosin HCl (Flomax) 0.4 mg BEDTIME ORAL 04/27/18 21:00 05/27/18 20:59 05/01/18 20:35 Nakul Cisse MD May 02, 2018 08:16
[2018-05-02] MEDS: Docusate 100mg/10ml Liq ORAL SCH (08:43)
[2018-05-02] MEDS: Pantoprazole Inj IVP SCH ×2 (08:43→21:40)
[2018-05-02] MEDS: Metoprolol Tartrate 50mg tab GT SCH ×2 (08:43→21:39)
[2018-05-02] MEDS: Minocycline HCl 50mg cap ORAL SCH (08:43)
[2018-05-02] MEDS: Multivitamin w/Minerals tab ORAL SCH (08:44)
[2018-05-02] MEDS: Phospha 250 Neutral tab ORAL SCH ×3 (08:45→18:47)
[2018-05-02] MEDS: Isoniazid 300mg tab ORAL SCH (08:45)
[2018-05-02] MEDS: Pyridoxine 50mg tab ORAL SCH (08:45)
--- NOTE | 2018-05-02 09:28 | Diagnostic Imaging Report ---
Indication: Abnormal chest sounds Technique: One view of the chest Comparison: 04/28/2018 Findings: New or markedly increased bilateral diffuse interstitial and airspace opacities, likely pulmonary edema. There is a small left pleural effusion. The heart is borderline enlarged. There is a tracheostomy Impression: Markedly increased bilateral interstitial and airspace opacities, probably on the basis of pulmonary edema Small left pleural effusion Other findings as noted
[2018-05-02] MEDS: levETIRAcetam 750 MG in D5W 95 ML IV SCH ×2 (09:33→21:40)
--- NOTE | 2018-05-02 11:06 | Diagnostic Imaging Report ---
Indication: Shortness of breath Technique: One view of the chest Comparison: 05/01/2018 Findings: That inspiration currently. There appears to be improved interstitial and airspace edema, although some parenchymal disease persists in the left mid and lower lung Impression: Improved parenchymal disease, over one day, with some residual in the left mid and lower lung.
[2018-05-02] MEDS: D5NS 1,000 ML IV SCH ×2 (13:06→18:37)
--- NOTE | 2018-05-02 14:44 | Neurology Progress Note ---
Interim History Interim History Interim History Mr. Narvaez continues to be poorly responsive. He has his eyes open but does not respond to any external stimuli other than pain. There has been no improvement in his mental state. He continues to be seizure-free. He continues to be non-functional. Review of Systems Neuro Review of Systems Unable to obtain. Objective Physical Exam Last Vital Signs Date Time Temp Pulse Resp B/P (MAP) Pulse Ox O2 Delivery O2 Flow Rate FiO2 05/02/18 14:00 67 25 124/61 (82) 100 05/02/18 13:16 30 05/02/18 12:00 97.6 97.6 05/02/18 12:00 Mechanical Ventilator 04/28/18 19:14 Laboratory Tests Test 05/02/18 04:00 White Blood Count 6.1 K/UL (4.8-10.8) Red Blood Count 3.16 M/UL (4.70-6.10) L Hemoglobin 7.9 G/DL (14.2-18.0) L Hematocrit 24.1 % (42.0-52.0) L Mean Corpuscular Volume 76 FL (80-99) L Mean Corpuscular Hemoglobin 25.0 PG (27.0-31.0) L Mean Corpuscular Hemoglobin Concent 32.8 G/DL (32.0-36.0) Red Cell Distribution Width 17.7 % (11.6-14.8) H Platelet Count 177 K/UL (150-450) Mean Platelet Volume 5.9 FL (6.5-10.1) L Neutrophils (%) (Auto) % (45.0-75.0) Lymphocytes (%) (Auto) % (20.0-45.0) Monocytes (%) (Auto) % (1.0-10.0) Eosinophils (%) (Auto) % (0.0-3.0) Basophils (%) (Auto) % (0.0-2.0) Differential Total Cells Counted 100 Neutrophils % (Manual) 85 % (45-75) H Lymphocytes % (Manual) 7 % (20-45) L Monocytes % (Manual) 7 % (1-10) Eosinophils % (Manual) 1 % (0-3) Basophils % (Manual) 0 % (0-2) Band Neutrophils 0 % (0-8) Platelet Estimate Adequate Platelet Morphology Normal Hypochromasia 3+ Anisocytosis 1+ Microcytosis 1+ Spherocytes 1+ Sodium Level 138 MMOL/L (136-145) Potassium Level 3.4 MMOL/L (3.5-5.1) L Chloride Level 107 MMOL/L (98-107) Carbon Dioxide Level 26 MMOL/L (21-32) Anion Gap 5 mmol/L (5-15) Blood Urea Nitrogen 20 mg/dL (7-18) H Creatinine 0.5 MG/DL (0.55-1.30) L Estimat Glomerular Filtration Rate mL/min (>60) Glucose Level 107 MG/DL (74-106) H Calcium Level 7.4 MG/DL (8.5-10.1) L Phosphorus Level 1.6 MG/DL (2.5-4.9) L Magnesium Level 1.6 MG/DL (1.8-2.4) L Total Bilirubin 0.4 MG/DL (0.2-1.0) Aspartate Amino Transf (AST/SGOT) 31 U/L (15-37) Alanine Aminotransferase (ALT/SGPT) 15 U/L (12-78) Alkaline Phosphatase 248 U/L (46-116) H Total Protein 5.0 G/DL (6.4-8.2) L Albumin 1.1 G/DL (3.4-5.0) L Globulin 3.9 g/dL Albumin/Globulin Ratio 0.3 (1.0-2.7) L Neurologic Exam Objective PHYSICAL EXAMINATION: GENERAL: He is a well-developed, ill-looking black gentleman, lying in an ICU bed, in no acute distress. HEAD: Normocephalic and atraumatic. EENT: Examination benign. NECK: No neck rigidity was observed. NEUROLOGICAL EXAMINATION: MENTAL STATUS EXAMINATION: He did not arouse even on deep painful stimulation. He was unable to follow any commands and unable to communicate in any manner. SPEECH: Could not be tested. LANGUAGE: Could not be tested. CRANIAL NERVE EXAMINATION: II: He did not blink to threat. III, IV & : External ocular movements were present on oculocephalic maneuvers. The pupils were 3 mm in diameter, equal, round, regular, and reactive sluggishly to light. V & VII: The corneal reflexes were present bilaterally. However, the right- sided reflex was significantly diminished compared to the left. VIII: He seemed to be able to hear and had no nystagmus. IX & X: Gag reflex was suppressed. XI: The sternocleidomastoids and trapezii functioned minimally. XII: The tongue was in the midline. MOTOR SYSTEM: The tone was increased in all four extremities with spasticity more marked on the right than on the left. Examination of muscle mass revealed generalized muscle wasting, again more marked on the right than on the left. Examination of power was impossible to perform on individual muscle groups. However, he did move all four extremities on deep pain with possibly right greater than left-sided weakness. SENSORY EXAMINATION: He responded appropriately to deep pain with less vigorous responses on the right side compared to the left. REFLEXES: Trace+ and bilaterally symmetrical at the biceps, triceps, brachioradialis. 0 at both knees and ankles. The plantar responses were extensor bilaterally. COORDINATION, STANCE & GAIT: Could not be tested. Impression/Recommendations Diagnostic Impression 1. Mr. Sagar Narvaez is a 72-year-old, [place] gentleman, of unknown handedness, who does have a past history of cerebrovascular disease with a prior stroke, pulmonary tuberculosis, chronic respiratory failure for which he has tracheostomy, and dysphagia for which he has a gastrostomy; who lives in group home where he was noted to have an alteration in his mental state in the form of increased lethargy. He was thus brought into the [facility] emergency room and following admission, he apparently spiked a fever to 103 degrees Fahrenheit followed by multiple seizures. He was cooled down, given Ativan and started on Keppra and has been seizure-free since then. 2. He continues to be poorly responsive. His eyes are open but he is unresponsive to any external stimuli. There has been no improvement in his mental state. He continues to be seizure-free. He continues to be non- functional. 3. On neurological examination, at this time, he cannot be aroused even on deep pain. His corneal reflex is diminished on the right side compared to the left. 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 In addition, he responds to deep pain, less on the right than on the left. His deep tendon reflexes are globally diminished and his plantar responses are extensor bilaterally. 4. Laboratory data on my initial evaluation revealed that his WBC count is creeping up from 4.4 to 9.5. He is significantly anemic with a hemoglobin of 8.8 G. His chemistry panel reveals that his bilirubin is elevated to 1.1. His alkaline phosphatase is elevated to 367, his AST is elevated to 52. His albumin is low at 1.9. His arterial blood gas reveals a pCO2 of 29 and a pO2 of 59 with a pH of 7.43. His urinalysis reveals 2+ leukocyte esterase with 2-4 RBCs and 2-4 WBCs per high-power field. 5. The EEG done on 04/27/18 revealed a moderately severe encephalopathy and left > right hemispheric dysfunction. No inter-ictal discharges were seen. 6. The CT of the brain done on 04/30/18 revealed multiple old bilateral cerebral infarcts involving the left > right brain. 7. 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 Recommendations 1. Continue present management. 2. Continue Keppra 750 mg q.12 hours. 3. Observe. Mercedes Coelho M.D., M.S.P.MERCEDES BERMUDEZ May 02, 2018 14:44
[2018-05-02] MEDS ORDERED: cefTRIAXone 1gm/D5W 55ml IVPB SCH ×2 (15:00)
[2018-05-02] MEDS ORDERED: LORazepam Inj 2mg/ml 1ml IV PRN (18:18)
[2018-05-02] MEDS: Tamsulosin 0.4mg cap ORAL SCH (21:40)
--- NOTE | 2018-05-02 22:02 | General Progress Note ---
Assessment/Plan Assessment/Plan Assessment - suspected early cirrhosis based on imaging - UGIB, resolved - Anemia - Resp failure - s/p PEG and Trach Recommendations - check serologic w/u for chronic liver disease - hepatitis A/B/C negative - continue TF Subjective Allergies: Coded Allergies: No Known Allergies (Unverified , 01/27/17) Subjective No events overnight Tolerating TF non communicative Objective Last 24 Hour Vital Signs Date Time Temp Pulse Resp B/P (MAP) Pulse Ox O2 Delivery O2 Flow Rate FiO2 05/02/18 21:39 73 136/71 05/02/18 21:10 73 22 30 05/02/18 20:20 75 20 30 05/02/18 20:00 30 05/02/18 20:00 73 05/02/18 20:00 Mechanical Ventilator 05/02/18 20:00 97.6 76 22 136/71 (92) 100 97.6 05/02/18 18:22 72 05/02/18 17:00 97.3 68 23 145/70 (95) 100 97.3 05/02/18 16:46 71 28 30 05/02/18 16:00 65 23 140/68 (92) 100 05/02/18 16:00 65 05/02/18 16:00 Mechanical Ventilator 05/02/18 16:00 30 05/02/18 15:00 67 25 140/68 (92) 100 05/02/18 14:53 65 24 30 05/02/18 14:00 67 25 124/61 (82) 100 05/02/18 13:16 64 22 30 05/02/18 13:00 64 20 134/66 (88) 100 05/02/18 12:00 97.6 64 19 117/60 (79) 100 97.6 05/02/18 12:00 66 05/02/18 12:00 30 05/02/18 12:00 Mechanical Ventilator 05/02/18 11:11 66 24 100 Mechanical Ventilator 30 05/02/18 11:11 65 24 30 05/02/18 11:00 62 19 129/68 (88) 100 05/02/18 10:43 64 20 100 Mechanical Ventilator 30 05/02/18 10:00 63 19 100 05/02/18 10:00 63 19 120/58 (78) 100 05/02/18 09:14 67 22 30 05/02/18 09:00 68 16 126/64 (84) 100 05/02/18 08:43 68 128/64 05/02/18 08:00 97.4 69 20 126/62 (83) 100 97.4 05/02/18 08:00 Mechanical Ventilator 05/02/18 08:00 65 05/02/18 08:00 30 05/02/18 07:40 80 24 30 05/02/18 07:39 67 21 100 Mechanical Ventilator 30 05/02/18 07:18 68 27 100 Mechanical Ventilator 30 05/02/18 07:00 67 16 128/64 (85) 100 05/02/18 06:04 70 16 111/59 (76) 100 05/02/18 05:21 73 26 30 05/02/18 05:00 71 25 132/64 (86) 100 05/02/18 04:00 30 05/02/18 04:00 97.1 68 20 131/64 (86) 100 97.1 05/02/18 04:00 Mechanical Ventilator 05/02/18 04:00 68 05/02/18 03:41 66 24 100 Mechanical Ventilator 30 05/02/18 03:29 67 25 100 Mechanical Ventilator 30 05/02/18 03:29 67 25 30 05/02/18 03:00 67 24 127/62 (83) 100 05/02/18 02:00 68 27 132/64 (86) 100 05/02/18 01:14 68 26 30 05/02/18 01:00 68 25 108/57 (74) 100 05/02/18 00:00 66 05/02/18 00:00 Mechanical Ventilator 05/02/18 00:00 30 05/02/18 00:00 97.7 66 17 122/68 (86) 100 97.7 05/01/18 23:29 70 20 100 Mechanical Ventilator 30 05/01/18 23:19 67 27 100 Mechanical Ventilator 30 05/01/18 23:18 67 27 30 05/01/18 23:00 68 28 110/52 (71) 100 Intake and Output 05/01/18 05/02/18 19:00 07:00 Intake Total 2597.5 ml 1757.5 ml Output Total 775 ml 730 ml Balance 1822.5 ml 1027.5 ml Free Water 100 ml IV Total 1777.5 ml 977.5 ml Tube Feeding 720 ml 720 ml Other 60 ml Output Urine Total 775 ml 730 ml # Bowel Movements 2 Laboratory Tests 05/02/18 04:00: White Blood Count 6.1, Red Blood Count 3.16L, Hemoglobin 7.9L, Hematocrit 24.1L , Mean Corpuscular Volume 76L, Mean Corpuscular Hemoglobin 25.0L, Mean Corpuscular Hemoglobin Concent 32.8, Red Cell Distribution Width 17.7H, Platelet Count 177, Mean Platelet Volume 5.9L, Neutrophils (%) (Auto) , Lymphocytes (%) (Auto) , Monocytes (%) (Auto) , Eosinophils (%) (Auto) , Basophils (%) (Auto) , Differential Total Cells Counted 100, Neutrophils % ( Manual) 85H, Lymphocytes % (Manual) 7L, Monocytes % (Manual) 7, Eosinophils % ( Manual) 1, Basophils % (Manual) 0, Band Neutrophils 0, Platelet Estimate Adequate, Platelet Morphology Normal, Hypochromasia 3+, Anisocytosis 1+, Microcytosis 1+, Spherocytes 1+, Sodium Level 138, Potassium Level 3.4L, Chloride Level 107, Carbon Dioxide Level 26, Anion Gap 5, Blood Urea Nitrogen 20H, Creatinine 0.5L, Estimat Glomerular Filtration Rate , Glucose Level 107H, Calcium Level 7.4L, Phosphorus Level 1.6L, Magnesium Level 1.6L, Total Bilirubin 0.4, Aspartate Amino Transf (AST/SGOT) 31, Alanine Aminotransferase ( ALT/SGPT) 15, Alkaline Phosphatase 248H, Total Protein 5.0L, Albumin 1.1L, Globulin 3.9, Albumin/Globulin Ratio 0.3L Height (Feet): 5 Height (Inches): 7.00 Weight (Pounds): 142 Objective Thin AA man non communicative NCAT (+) trach CTA RRR soft ND NT, (+) GT no edema Oli Amaya MD May 02, 2018 22:02
[2018-05-02] MEDS: Dyna-Hex 2% Top Sol 2oz TOPIC SCH (22:03)
[2018-05-03] VITALS: BP 132/55
[2018-05-03 04:00] VITALS: BP 148/76
[2018-05-03 06:12] LABS: HEMATOCRIT 24.1 % (42.0-52.0); HEMOGLOBIN 7.9 G/DL (14.2-18.0); MEAN CORPUSCULAR VOLUME 76 FL (80-99); PLATELET COUNT 211 K/UL (150-450); RED BLOOD COUNT 3.17 M/UL (4.70-6.10); RED CELL DISTRIBUTION WIDTH 17.7 % (11.6-14.8)
[2018-05-03 06:18] LABS: ALANINE AMINOTRANSFERASE 13 U/L (12-78); ALBUMIN 1.2 G/DL (3.4-5.0); ALBUMIN/GLOBULIN RATIO 0.3 (1.0-2.7); ALKALINE PHOSPHATASE 249 U/L (46-116); ANION GAP 8 mmol/L (5-15); ASPARTATE AMINO TRANSFERASE 30 U/L (15-37); BILIRUBIN,TOTAL 0.3 MG/DL (0.2-1.0); BLOOD UREA NITROGEN 19 mg/dL (7-18); CALCIUM 7.4 MG/DL (8.5-10.1); CARBON DIOXIDE 25 MMOL/L (21-32); CHLORIDE 106 MMOL/L (98-107); CREATININE 0.4 MG/DL (0.55-1.30); POTASSIUM 3.3 MMOL/L (3.5-5.1); SODIUM 139 MMOL/L (136-145)
--- NOTE | 2018-05-03 07:26 | General Progress Note ---
Assessment/Plan Problem List: (1) Status epilepticus ICD Codes: G40.901 - Epilepsy, unspecified, not intractable, with status epilepticus SNOMED: 694910635 (2) Encephalopathy acute ICD Codes: G93.40 - Encephalopathy, unspecified SNOMED: 44615847, 636352383 (3) Probable sepsis ICD Codes: A41.9 - Sepsis, unspecified organism SNOMED: 374219894 (4) Dementia ICD Codes: F03.90 - Unspecified dementia without behavioral disturbance SNOMED: 68090884 (5) Encephalopathy ICD Codes: G93.40 - Encephalopathy, unspecified SNOMED: 20762394 (6) Sepsis ICD Codes: A41.9 - Sepsis, unspecified organism SNOMED: 19439493 (7) Pulmonary tuberculosis ICD Codes: A15.0 - Tuberculosis of lung SNOMED: 471733518 (8) Dehydration ICD Codes: E86.0 - Dehydration SNOMED: 35665508 (9) Altered level of consciousness ICD Codes: R40.4 - Transient alteration of awareness SNOMED: 7407836 Status: stable, progressing Assessment/Plan vent support resp rx PPI rx abx per ID TB rx sz rx per neuro monitor HR b-blockade CT head- chronic microvascular dz/old strokes. will d/w GI baby asa. replace lytes d/w staff Subjective ROS Limited/Unobtainable: Yes Constitutional: Reports: malaise, weakness HEENT: Reports: no symptoms Cardiovascular: Reports: no symptoms Respiratory: Reports: shortness of breath Gastrointestinal/Abdominal: Reports: difficulty swallowing Genitourinary: Reports: no symptoms Neurologic/Psychiatric: Reports: pre-existing deficit, seizure Endocrine: Reports: no symptoms Hematologic/Lymphatic: Reports: anemia Allergies: Coded Allergies: No Known Allergies (Unverified , 01/27/17) All Systems: reviewed and negative except above Subjective remains stable. poorly responsive. on the vent. no szs. labs noted. Objective Last 24 Hour Vital Signs Date Time Temp Pulse Resp B/P (MAP) Pulse Ox O2 Delivery O2 Flow Rate FiO2 05/03/18 05:30 65 20 30 05/03/18 04:00 98.3 73 22 148/76 (100) 100 98.3 05/03/18 04:00 Mechanical Ventilator 05/03/18 04:00 30 05/03/18 04:00 65 05/03/18 03:07 71 21 30 05/03/18 00:32 72 21 30 05/03/18 00:00 Mechanical Ventilator 05/03/18 00:00 97.9 70 22 132/55 (80) 100 97.9 05/03/18 00:00 30 05/03/18 00:00 68 05/02/18 23:21 73 15 30 05/02/18 21:39 73 136/71 05/02/18 21:10 73 22 30 05/02/18 20:20 75 20 30 05/02/18 20:00 30 05/02/18 20:00 73 05/02/18 20:00 Mechanical Ventilator 05/02/18 20:00 97.6 76 22 136/71 (92) 100 97.6 05/02/18 18:22 72 05/02/18 17:00 97.3 68 23 145/70 (95) 100 97.3 05/02/18 16:46 71 28 30 05/02/18 16:00 65 23 140/68 (92) 100 05/02/18 16:00 65 05/02/18 16:00 Mechanical Ventilator 05/02/18 16:00 30 05/02/18 15:00 67 25 140/68 (92) 100 05/02/18 14:53 65 24 30 05/02/18 14:00 67 25 124/61 (82) 100 05/02/18 13:16 64 22 30 05/02/18 13:00 64 20 134/66 (88) 100 05/02/18 12:00 97.6 64 19 117/60 (79) 100 97.6 05/02/18 12:00 66 05/02/18 12:00 30 05/02/18 12:00 Mechanical Ventilator 05/02/18 11:11 66 24 100 Mechanical Ventilator 30 05/02/18 11:11 65 24 30 05/02/18 11:00 62 19 129/68 (88) 100 05/02/18 10:43 64 20 100 Mechanical Ventilator 30 05/02/18 10:00 63 19 100 05/02/18 10:00 63 19 120/58 (78) 100 05/02/18 09:14 67 22 30 05/02/18 09:00 68 16 126/64 (84) 100 05/02/18 08:43 68 128/64 05/02/18 08:00 97.4 69 20 126/62 (83) 100 97.4 05/02/18 08:00 Mechanical Ventilator 05/02/18 08:00 65 05/02/18 08:00 30 05/02/18 07:40 80 24 30 05/02/18 07:39 67 21 100 Mechanical Ventilator 30 Intake and Output 05/02/18 05/03/18 18:59 06:59 Intake Total 1677.5 ml 1505 ml Output Total 625 ml Balance 1052.5 ml 1505 ml Free Water 100 ml IV Total 957.5 ml 685 ml Tube Feeding 720 ml 720 ml Output Urine Total 625 ml # Bowel Movements 1 Laboratory Tests 05/03/18 04:30: White Blood Count 5.0, Red Blood Count 3.17L, Hemoglobin 7.9L, Hematocrit 24.1L , Mean Corpuscular Volume 76L, Mean Corpuscular Hemoglobin 25.0L, Mean Corpuscular Hemoglobin Concent 32.9, Red Cell Distribution Width 17.7H, Platelet Count 211, Mean Platelet Volume 5.4L, Neutrophils (%) (Auto) , Lymphocytes (%) (Auto) , Monocytes (%) (Auto) , Eosinophils (%) (Auto) , Basophils (%) (Auto) , Neutrophils % (Manual) [Pending], Lymphocytes % (Manual) [Pending], Platelet Estimate [Pending], Platelet Morphology [Pending], Sodium Level 139, Potassium Level 3.3L, Chloride Level 106, Carbon Dioxide Level 25, Anion Gap 8, Blood Urea Nitrogen 19H, Creatinine 0.4L, Estimat Glomerular Filtration Rate , Glucose Level 90, Calcium Level 7.4L, Total Bilirubin 0.3, Aspartate Amino Transf (AST/SGOT) 30, Alanine Aminotransferase (ALT/SGPT) 13, Alkaline Phosphatase 249H, Total Protein 5.1L, Albumin 1.2L, Globulin 3.9, Albumin/Globulin Ratio 0.3L Height (Feet): 5 Height (Inches): 7.00 Weight (Pounds): 142 Objective General Appearance: WD/WN, cachetic, thin Neck: supple Cardiovascular: tachycardia Respiratory/Chest: rhonchi - bilaterally Abdomen: normal bowel sounds, non tender, soft, no organomegaly Edema: no edema noted Arm (L), no edema noted Arm (R), no edema noted Leg (L), no edema noted Leg (R), no edema noted Pedal (L), no edema noted Pedal (R), no edema noted Generalized Jarrod Vásquez MD May 03, 2018 07:26
[2018-05-03 08:00] VITALS: BP 155/77
--- NOTE | 2018-05-03 08:57 | General Progress Note ---
Assessment/Plan Assessment/Plan Assessment/Plan Assessment/Plan Assessment - suspected early cirrhosis based on imaging - UGIB, resolved - Anemia - Resp failure - s/p PEG and Trach Recommendations - check serologic w/u for chronic liver disease - hepatitis A/B/C negative - continue TF Subjective ROS Limited/Unobtainable: No Allergies: Coded Allergies: No Known Allergies (Unverified , 01/27/17) Objective Last 24 Hour Vital Signs Date Time Temp Pulse Resp B/P (MAP) Pulse Ox O2 Delivery O2 Flow Rate FiO2 05/03/18 08:00 30 05/03/18 08:00 99.1 66 20 155/77 (103) 100 99.1 05/03/18 08:00 66 05/03/18 08:00 Mechanical Ventilator 05/03/18 07:10 65 24 30 05/03/18 05:30 65 20 30 05/03/18 04:00 98.3 73 22 148/76 (100) 100 98.3 05/03/18 04:00 Mechanical Ventilator 05/03/18 04:00 30 05/03/18 04:00 65 05/03/18 03:07 71 21 30 05/03/18 00:32 72 21 30 05/03/18 00:00 Mechanical Ventilator 05/03/18 00:00 97.9 70 22 132/55 (80) 100 97.9 05/03/18 00:00 30 05/03/18 00:00 68 05/02/18 23:21 73 15 30 05/02/18 21:39 73 136/71 05/02/18 21:10 73 22 30 05/02/18 20:20 75 20 30 05/02/18 20:00 30 05/02/18 20:00 73 05/02/18 20:00 Mechanical Ventilator 05/02/18 20:00 97.6 76 22 136/71 (92) 100 97.6 05/02/18 18:22 72 05/02/18 17:00 97.3 68 23 145/70 (95) 100 97.3 05/02/18 16:46 71 28 30 05/02/18 16:00 65 23 140/68 (92) 100 05/02/18 16:00 65 05/02/18 16:00 Mechanical Ventilator 05/02/18 16:00 30 05/02/18 15:00 67 25 140/68 (92) 100 05/02/18 14:53 65 24 30 05/02/18 14:00 67 25 124/61 (82) 100 05/02/18 13:16 64 22 30 05/02/18 13:00 64 20 134/66 (88) 100 05/02/18 12:00 97.6 64 19 117/60 (79) 100 97.6 05/02/18 12:00 66 05/02/18 12:00 30 05/02/18 12:00 Mechanical Ventilator 05/02/18 11:11 66 24 100 Mechanical Ventilator 30 05/02/18 11:11 65 24 30 05/02/18 11:00 62 19 129/68 (88) 100 05/02/18 10:43 64 20 100 Mechanical Ventilator 30 05/02/18 10:00 63 19 100 05/02/18 10:00 63 19 120/58 (78) 100 05/02/18 09:14 67 22 30 05/02/18 09:00 68 16 126/64 (84) 100 Intake and Output 05/02/18 05/03/18 19:00 07:00 Intake Total 1627.5 ml 1530 ml Output Total 565 ml 700 ml Balance 1062.5 ml 830 ml Free Water 100 ml IV Total 907.5 ml 710 ml Tube Feeding 720 ml 720 ml Output Urine Total 565 ml 700 ml # Bowel Movements 2 Laboratory Tests 05/03/18 04:30: White Blood Count 5.0, Red Blood Count 3.17L, Hemoglobin 7.9L, Hematocrit 24.1L , Mean Corpuscular Volume 76L, Mean Corpuscular Hemoglobin 25.0L, Mean Corpuscular Hemoglobin Concent 32.9, Red Cell Distribution Width 17.7H, Platelet Count 211, Mean Platelet Volume 5.4L, Neutrophils (%) (Auto) , Lymphocytes (%) (Auto) , Monocytes (%) (Auto) , Eosinophils (%) (Auto) , Basophils (%) (Auto) , Neutrophils % (Manual) [Pending], Lymphocytes % (Manual) [Pending], Platelet Estimate [Pending], Platelet Morphology [Pending], Sodium Level 139, Potassium Level 3.3L, Chloride Level 106, Carbon Dioxide Level 25, Anion Gap 8, Blood Urea Nitrogen 19H, Creatinine 0.4L, Estimat Glomerular Filtration Rate , Glucose Level 90, Calcium Level 7.4L, Total Bilirubin 0.3, Aspartate Amino Transf (AST/SGOT) 30, Alanine Aminotransferase (ALT/SGPT) 13, Alkaline Phosphatase 249H, Total Protein 5.1L, Albumin 1.2L, Globulin 3.9, Albumin/Globulin Ratio 0.3L Height (Feet): 5 Height (Inches): 7.00 Weight (Pounds): 142 General Appearance: no apparent distress EENT: normal ENT inspection Neck: supple Cardiovascular: normal rate Respiratory/Chest: decreased breath sounds Abdomen: normal bowel sounds, non tender, soft Extremities: non-tender Roberto Carlos Hung MD May 03, 2018 08:57
[2018-05-03] MEDS: Pyridoxine 50mg tab ORAL SCH (09:19)
[2018-05-03] MEDS: levETIRAcetam 750 MG in D5W 95 ML IV SCH ×2 (09:19→21:06)
[2018-05-03] MEDS: Pantoprazole Inj IVP SCH ×2 (09:20→21:06)
[2018-05-03] MEDS: Multivitamin w/Minerals tab ORAL SCH (09:20)
[2018-05-03] MEDS: Metoprolol Tartrate 50mg tab GT SCH ×2 (09:21→21:06)
[2018-05-03] MEDS: Phospha 250 Neutral tab ORAL SCH ×3 (09:21→17:47)
[2018-05-03] MEDS: Isoniazid 300mg tab ORAL SCH (09:21)
[2018-05-03] MEDS: Docusate 100mg/10ml Liq ORAL SCH (09:22)
[2018-05-03] MEDS: cefTRIAXone 1 GM in D5W 55 ML IVPB SCH (09:22)
[2018-05-03] MEDS ORDERED: NS 275ml ONE (10:54)
[2018-05-03] MEDS ORDERED: Tubing IV Secondary IV ONE ×2 (10:54→10:57)
[2018-05-03] MEDS ORDERED: D5NS 1000ml IV ONE (10:57)
--- NOTE | 2018-05-03 11:01 | Infectious Diseases Prog Note ---
Assessment/Plan Assessment/Plan antibiotics : zosyn, minocycline, isoniazid, rifampin, pyrazinamide, ethambutol , pyridoxine A 1. pulmonary TB 2. e.coli pneumonia 3. fungal UTI 4. respiratory failure 5. encephalopathy P 1. zosyn, minocycline d/c 2. continue isoniazid, rifampin, pyrazinamide, ethambutol, pyridoxine 3. ceftriaxone started 4. start fluconazole 5. will follow up cultures Subjective ROS Limited/Unobtainable: Yes Allergies: Coded Allergies: No Known Allergies (Unverified , 01/27/17) Objective Vital Signs Last 24 Hour Vital Signs Date Time Temp Pulse Resp B/P (MAP) Pulse Ox O2 Delivery O2 Flow Rate FiO2 05/03/18 09:21 66 155/77 05/03/18 09:00 69 24 30 05/03/18 08:00 30 05/03/18 08:00 99.1 66 20 155/77 (103) 100 99.1 05/03/18 08:00 66 05/03/18 08:00 Mechanical Ventilator 05/03/18 07:10 65 24 30 05/03/18 05:30 65 20 30 05/03/18 04:00 98.3 73 22 148/76 (100) 100 98.3 05/03/18 04:00 Mechanical Ventilator 05/03/18 04:00 30 05/03/18 04:00 65 05/03/18 03:07 71 21 30 05/03/18 00:32 72 21 30 05/03/18 00:00 Mechanical Ventilator 05/03/18 00:00 97.9 70 22 132/55 (80) 100 97.9 05/03/18 00:00 30 05/03/18 00:00 68 05/02/18 23:21 73 15 30 05/02/18 21:39 73 136/71 05/02/18 21:10 73 22 30 05/02/18 20:20 75 20 30 05/02/18 20:00 30 05/02/18 20:00 73 05/02/18 20:00 Mechanical Ventilator 05/02/18 20:00 97.6 76 22 136/71 (92) 100 97.6 05/02/18 18:22 72 05/02/18 17:00 97.3 68 23 145/70 (95) 100 97.3 05/02/18 16:46 71 28 30 05/02/18 16:00 65 23 140/68 (92) 100 05/02/18 16:00 65 05/02/18 16:00 Mechanical Ventilator 05/02/18 16:00 30 05/02/18 15:00 67 25 140/68 (92) 100 05/02/18 14:53 65 24 30 05/02/18 14:00 67 25 124/61 (82) 100 05/02/18 13:16 64 22 30 05/02/18 13:00 64 20 134/66 (88) 100 05/02/18 12:00 97.6 64 19 117/60 (79) 100 97.6 05/02/18 12:00 66 05/02/18 12:00 30 05/02/18 12:00 Mechanical Ventilator 05/02/18 11:11 66 24 100 Mechanical Ventilator 30 05/02/18 11:11 65 24 30 05/02/18 11:00 62 19 129/68 (88) 100 Height (Feet): 5 Height (Inches): 7.00 Weight (Pounds): 142 HEENT: status post trach Respiratory/Chest: lungs clear Cardiovascular: normal rate, regular rhythm, no gallop/murmur Abdomen: soft, non tender, other - GT Extremities: no edema Laboratory Tests Test 05/03/18 04:30 White Blood Count 5.0 K/UL (4.8-10.8) Red Blood Count 3.17 M/UL (4.70-6.10) L Hemoglobin 7.9 G/DL (14.2-18.0) L Hematocrit 24.1 % (42.0-52.0) L Mean Corpuscular Volume 76 FL (80-99) L Mean Corpuscular Hemoglobin 25.0 PG (27.0-31.0) L Mean Corpuscular Hemoglobin Concent 32.9 G/DL (32.0-36.0) Red Cell Distribution Width 17.7 % (11.6-14.8) H Platelet Count 211 K/UL (150-450) Mean Platelet Volume 5.4 FL (6.5-10.1) L Neutrophils (%) (Auto) % (45.0-75.0) Lymphocytes (%) (Auto) % (20.0-45.0) Monocytes (%) (Auto) % (1.0-10.0) Eosinophils (%) (Auto) % (0.0-3.0) Basophils (%) (Auto) % (0.0-2.0) Differential Total Cells Counted 100 Neutrophils % (Manual) 83 % (45-75) H Lymphocytes % (Manual) 4 % (20-45) L Monocytes % (Manual) 12 % (1-10) H Eosinophils % (Manual) 1 % (0-3) Basophils % (Manual) 0 % (0-2) Band Neutrophils 0 % (0-8) Platelet Estimate Adequate Platelet Morphology Normal Hypochromasia 3+ Anisocytosis 1+ Microcytosis 1+ Spherocytes 1+ Sodium Level 139 MMOL/L (136-145) Potassium Level 3.3 MMOL/L (3.5-5.1) L Chloride Level 106 MMOL/L (98-107) Carbon Dioxide Level 25 MMOL/L (21-32) Anion Gap 8 mmol/L (5-15) Blood Urea Nitrogen 19 mg/dL (7-18) H Creatinine 0.4 MG/DL (0.55-1.30) L Estimat Glomerular Filtration Rate mL/min (>60) Glucose Level 90 MG/DL (74-106) Calcium Level 7.4 MG/DL (8.5-10.1) L Total Bilirubin 0.3 MG/DL (0.2-1.0) Aspartate Amino Transf (AST/SGOT) 30 U/L (15-37) Alanine Aminotransferase (ALT/SGPT) 13 U/L (12-78) Alkaline Phosphatase 249 U/L (46-116) H Total Protein 5.1 G/DL (6.4-8.2) L Albumin 1.2 G/DL (3.4-5.0) L Globulin 3.9 g/dL Albumin/Globulin Ratio 0.3 (1.0-2.7) L Current Medications Medications (Trade) Dose Ordered Sig/Iram Route PRN Reason Start Time Stop Time Status Last Admin Dose Admin Acetaminophen (Tylenol) 650 mg Q4H PRN ORAL Fever/Headache/Mild Pain 05/02/18 18:30 05/26/18 18:29 Artificial Tears (Akwa-Tears) 2 drop FIVE TIMES A DAY PRN BOTH EYES Dry Eyes 05/02/18 19:00 05/31/18 11:44 Atorvastatin Calcium (Lipitor) 10 mg BEDTIME GT 05/02/18 21:00 05/28/18 20:59 05/02/18 21:39 Ceftriaxone Sodium 1 gm/ Dextrose 55 ml @ 110 mls/hr DAILY IVPB 05/03/18 09:00 05/09/18 14:59 05/03/18 09:22 Chlorhexidine Gluconate (Letha-Hex 2%) 1 applic DAILY@2000 TOPIC 05/02/18 20:00 05/31/18 19:59 05/02/18 22:03 Clonidine HCl (Catapres Tab) 0.1 mg Q4H PRN ORAL SBP >160 05/02/18 19:00 05/28/18 10:59 Dextrose/Sodium Chloride 1,000 ml @ 50 mls/hr Q20H IV 05/02/18 17:30 05/29/18 21:21 05/02/18 18:37 Docusate Sodium (Colace) 100 mg DAILY ORAL 05/03/18 09:00 05/27/18 08:59 05/03/18 09:22 Ethambutol HCl (Myambutol) 800 mg DAILY ORAL 05/03/18 09:00 05/27/18 08:59 05/03/18 09:20 Hydralazine HCl (Apresoline) 10 mg Q4H PRN IV SBP >160 05/02/18 18:18 05/28/18 18:17 Isoniazid (Inh) 300 mg DAILY ORAL 05/03/18 09:00 05/27/18 08:59 05/03/18 09:21 Levetiracetam 750 mg/Dextrose 102.5 ml @ 440 mls/hr Q12HR IV 05/02/18 21:00 05/29/18 00:59 05/03/18 09:19 Lorazepam (Ativan 2mg/ml 1ml) 2 mg Q1H PRN IV For Seizures 05/02/18 18:18 05/04/18 18:17 Metoprolol Tartrate (Lopressor) 50 mg Q12HR GT 05/02/18 21:00 05/28/18 20:59 05/03/18 09:21 Multivitamins Therapeutic (Therapeutic Multivitamin) 1 ea DAILY ORAL 05/03/18 09:00 05/27/18 08:59 05/03/18 09:20 Ondansetron HCl (Zofran) 4 mg Q6H PRN IVP Nausea & Vomiting 05/02/18 18:19 05/28/18 18:18 Pantoprazole (Protonix) 40 mg EVERY 12 HOURS IVP 05/02/18 21:00 05/29/18 08:59 05/03/18 09:20 Phosphorus (Phospha 250 Neutral) 250 mg THREE TIMES A DAY ORAL 05/02/18 18:00 05/04/18 17:59 05/03/18 09:21 Pyrazinamide (Pza) 1,000 mg DAILY ORAL 05/03/18 09:00 05/28/18 08:59 05/03/18 09:20 Pyridoxine HCl (Vitamin B6) 50 mg DAILY ORAL 05/03/18 09:00 05/27/18 08:59 05/03/18 09:19 Rifampin (Rifadin) 600 mg DAILY ORAL 05/03/18 09:00 05/27/18 08:59 05/03/18 09:22 Sennosides (Senokot) 2 tab BIDPRN PRN GT Constipation 05/02/18 18:20 05/27/18 18:19 Tamsulosin HCl (Flomax) 0.4 mg BEDTIME ORAL 05/02/18 21:00 05/27/18 20:59 05/02/18 21:40 RENÉE RICHARDSON May 03, 2018 11:01
--- NOTE | 2018-05-03 11:03 | Pulmonology Progress Note ---
Assessment/Plan Assessment/Plan IMPRESSION respiratory failure possible sepsis chronic encephalopathy trach debility hypoxemia htn metabolic acidosis ho hypertension ho seizures abnormal imaging PLAN care noted IV antibiotics noted respiratory care vent support for now; consider wean aspiration precautions and monitor supportive care as outlined monitor acid base and intervene suction PRN follow clinically for change and monitor xray for change oxygen therapy monitor hemodynamics and adjust prognosis guarded at present needs full care medications/laboratory data/nursing notes reviewed in detail note reviewed and edited care discussed with RN and RT Subjective Allergies: Coded Allergies: No Known Allergies (Unverified , 01/27/17) Subjective care discussed on vent events reviewed and moved to JOSES[place]O comfortable hemodynamics reviewed Objective Last 24 Hour Vital Signs Date Time Temp Pulse Resp B/P (MAP) Pulse Ox O2 Delivery O2 Flow Rate FiO2 05/03/18 09:21 66 155/77 05/03/18 09:00 69 24 30 05/03/18 08:00 30 05/03/18 08:00 99.1 66 20 155/77 (103) 100 99.1 05/03/18 08:00 66 05/03/18 08:00 Mechanical Ventilator 05/03/18 07:10 65 24 30 05/03/18 05:30 65 20 30 05/03/18 04:00 98.3 73 22 148/76 (100) 100 98.3 05/03/18 04:00 Mechanical Ventilator 05/03/18 04:00 30 05/03/18 04:00 65 05/03/18 03:07 71 21 30 05/03/18 00:32 72 21 30 05/03/18 00:00 Mechanical Ventilator 05/03/18 00:00 97.9 70 22 132/55 (80) 100 97.9 05/03/18 00:00 30 05/03/18 00:00 68 05/02/18 23:21 73 15 30 05/02/18 21:39 73 136/71 05/02/18 21:10 73 22 30 05/02/18 20:20 75 20 30 05/02/18 20:00 30 05/02/18 20:00 73 05/02/18 20:00 Mechanical Ventilator 05/02/18 20:00 97.6 76 22 136/71 (92) 100 97.6 05/02/18 18:22 72 05/02/18 17:00 97.3 68 23 145/70 (95) 100 97.3 05/02/18 16:46 71 28 30 05/02/18 16:00 65 23 140/68 (92) 100 05/02/18 16:00 65 05/02/18 16:00 Mechanical Ventilator 05/02/18 16:00 30 05/02/18 15:00 67 25 140/68 (92) 100 05/02/18 14:53 65 24 30 05/02/18 14:00 67 25 124/61 (82) 100 05/02/18 13:16 64 22 30 05/02/18 13:00 64 20 134/66 (88) 100 05/02/18 12:00 97.6 64 19 117/60 (79) 100 97.6 05/02/18 12:00 66 05/02/18 12:00 30 05/02/18 12:00 Mechanical Ventilator 05/02/18 11:11 66 24 100 Mechanical Ventilator 30 05/02/18 11:11 65 24 30 05/02/18 11:00 62 19 129/68 (88) 100 Intake and Output 05/02/18 05/03/18 19:00 07:00 Intake Total 1627.5 ml 1530 ml Output Total 565 ml 700 ml Balance 1062.5 ml 830 ml Free Water 100 ml IV Total 907.5 ml 710 ml Tube Feeding 720 ml 720 ml Output Urine Total 565 ml 700 ml # Bowel Movements 2 Objective WDWN poorly responsive and overall same moderate breath sounds bilaterally without rhonchi or wheeze [id number] without MRG NABS nontender no HSM; gt no CCE cachectic poor response to pain skin noted comfortable reviewed and edited Laboratory Tests 05/03/18 04:30: White Blood Count 5.0, Red Blood Count 3.17L, Hemoglobin 7.9L, Hematocrit 24.1L , Mean Corpuscular Volume 76L, Mean Corpuscular Hemoglobin 25.0L, Mean Corpuscular Hemoglobin Concent 32.9, Red Cell Distribution Width 17.7H, Platelet Count 211, Mean Platelet Volume 5.4L, Neutrophils (%) (Auto) , Lymphocytes (%) (Auto) , Monocytes (%) (Auto) , Eosinophils (%) (Auto) , Basophils (%) (Auto) , Differential Total Cells Counted 100, Neutrophils % ( Manual) 83H, Lymphocytes % (Manual) 4L, Monocytes % (Manual) 12H, Eosinophils % (Manual) 1, Basophils % (Manual) 0, Band Neutrophils 0, Platelet Estimate Adequate, Platelet Morphology Normal, Hypochromasia 3+, Anisocytosis 1+, Microcytosis 1+, Spherocytes 1+, Sodium Level 139, Potassium Level 3.3L, Chloride Level 106, Carbon Dioxide Level 25, Anion Gap 8, Blood Urea Nitrogen 19H, Creatinine 0.4L, Estimat Glomerular Filtration Rate , Glucose Level 90, Calcium Level 7.4L, Total Bilirubin 0.3, Aspartate Amino Transf (AST/SGOT) 30, Alanine Aminotransferase (ALT/SGPT) 13, Alkaline Phosphatase 249H, Total Protein 5.1L, Albumin 1.2L, Globulin 3.9, Albumin/Globulin Ratio 0.3L Current Medications Medications (Trade) Dose Ordered Sig/Iram Route PRN Reason Start Time Stop Time Status Last Admin Dose Admin Acetaminophen (Tylenol) 650 mg Q4H PRN ORAL Fever/Headache/Mild Pain 05/02/18 18:30 05/26/18 18:29 Artificial Tears (Akwa-Tears) 2 drop FIVE TIMES A DAY PRN BOTH EYES Dry Eyes 05/02/18 19:00 05/31/18 11:44 Atorvastatin Calcium (Lipitor) 10 mg BEDTIME GT 05/02/18 21:00 05/28/18 20:59 05/02/18 21:39 Ceftriaxone Sodium 1 gm/ Dextrose 55 ml @ 110 mls/hr DAILY IVPB 05/03/18 09:00 05/09/18 14:59 05/03/18 09:22 Chlorhexidine Gluconate (Letha-Hex 2%) 1 applic DAILY@2000 TOPIC 05/02/18 20:00 05/31/18 19:59 05/02/18 22:03 Clonidine HCl (Catapres Tab) 0.1 mg Q4H PRN ORAL SBP >160 05/02/18 19:00 05/28/18 10:59 Dextrose/Sodium Chloride 1,000 ml @ 50 mls/hr Q20H IV 05/02/18 17:30 05/29/18 21:21 05/02/18 18:37 Docusate Sodium (Colace) 100 mg DAILY ORAL 05/03/18 09:00 05/27/18 08:59 05/03/18 09:22 Ethambutol HCl (Myambutol) 800 mg DAILY ORAL 05/03/18 09:00 05/27/18 08:59 05/03/18 09:20 Hydralazine HCl (Apresoline) 10 mg Q4H PRN IV SBP >160 05/02/18 18:18 05/28/18 18:17 Isoniazid (Inh) 300 mg DAILY ORAL 05/03/18 09:00 05/27/18 08:59 05/03/18 09:21 Levetiracetam 750 mg/Dextrose 102.5 ml @ 440 mls/hr Q12HR IV 05/02/18 21:00 05/29/18 00:59 05/03/18 09:19 Lorazepam (Ativan 2mg/ml 1ml) 2 mg Q1H PRN IV For Seizures 05/02/18 18:18 05/04/18 18:17 Metoprolol Tartrate (Lopressor) 50 mg Q12HR GT 05/02/18 21:00 05/28/18 20:59 05/03/18 09:21 Multivitamins Therapeutic (Therapeutic Multivitamin) 1 ea DAILY ORAL 05/03/18 09:00 05/27/18 08:59 05/03/18 09:20 Ondansetron HCl (Zofran) 4 mg Q6H PRN IVP Nausea & Vomiting 05/02/18 18:19 05/28/18 18:18 Pantoprazole (Protonix) 40 mg EVERY 12 HOURS IVP 05/02/18 21:00 05/29/18 08:59 05/03/18 09:20 Phosphorus (Phospha 250 Neutral) 250 mg THREE TIMES A DAY ORAL 05/02/18 18:00 05/04/18 17:59 05/03/18 09:21 Pyrazinamide (Pza) 1,000 mg DAILY ORAL 05/03/18 09:00 05/28/18 08:59 05/03/18 09:20 Pyridoxine HCl (Vitamin B6) 50 mg DAILY ORAL 05/03/18 09:00 05/27/18 08:59 05/03/18 09:19 Rifampin (Rifadin) 600 mg DAILY ORAL 05/03/18 09:00 05/27/18 08:59 05/03/18 09:22 Sennosides (Senokot) 2 tab BIDPRN PRN GT Constipation 05/02/18 18:20 05/27/18 18:19 Tamsulosin HCl (Flomax) 0.4 mg BEDTIME ORAL 05/02/18 21:00 05/27/18 20:59 05/02/18 21:40 Nakul Cisse MD May 03, 2018 11:03
[2018-05-03 12:00] VITALS: BP 159/84
[2018-05-03] MEDS ORDERED: Fluconazole 100mg tab ORAL SCH (12:00)
[2018-05-03] MEDS: D5NS 1,000 ML IV SCH (12:53)
--- NOTE | 2018-05-03 15:01 | Neurology Progress Note ---
Interim History Interim History Interim History Mr. Narvaez is poorly responsive. He has his eyes open but does not respond to any external stimuli other than pain. There has been no improvement in his mental state. He continues to be seizure-free. He continues to be non-functional. He was transferred out of the ICU. Review of Systems Neuro Review of Systems Unable to obtain. Objective Physical Exam Last Vital Signs Date Time Temp Pulse Resp B/P (MAP) Pulse Ox O2 Delivery O2 Flow Rate FiO2 05/03/18 14:44 65 18 30 05/03/18 12:00 Mechanical Ventilator 05/03/18 12:00 98.6 159/84 (109) 100 98.6 04/28/18 19:14 Laboratory Tests Test 05/03/18 04:30 White Blood Count 5.0 K/UL (4.8-10.8) Red Blood Count 3.17 M/UL (4.70-6.10) L Hemoglobin 7.9 G/DL (14.2-18.0) L Hematocrit 24.1 % (42.0-52.0) L Mean Corpuscular Volume 76 FL (80-99) L Mean Corpuscular Hemoglobin 25.0 PG (27.0-31.0) L Mean Corpuscular Hemoglobin Concent 32.9 G/DL (32.0-36.0) Red Cell Distribution Width 17.7 % (11.6-14.8) H Platelet Count 211 K/UL (150-450) Mean Platelet Volume 5.4 FL (6.5-10.1) L Neutrophils (%) (Auto) % (45.0-75.0) Lymphocytes (%) (Auto) % (20.0-45.0) Monocytes (%) (Auto) % (1.0-10.0) Eosinophils (%) (Auto) % (0.0-3.0) Basophils (%) (Auto) % (0.0-2.0) Differential Total Cells Counted 100 Neutrophils % (Manual) 83 % (45-75) H Lymphocytes % (Manual) 4 % (20-45) L Monocytes % (Manual) 12 % (1-10) H Eosinophils % (Manual) 1 % (0-3) Basophils % (Manual) 0 % (0-2) Band Neutrophils 0 % (0-8) Platelet Estimate Adequate Platelet Morphology Normal Hypochromasia 3+ Anisocytosis 1+ Microcytosis 1+ Spherocytes 1+ Sodium Level 139 MMOL/L (136-145) Potassium Level 3.3 MMOL/L (3.5-5.1) L Chloride Level 106 MMOL/L (98-107) Carbon Dioxide Level 25 MMOL/L (21-32) Anion Gap 8 mmol/L (5-15) Blood Urea Nitrogen 19 mg/dL (7-18) H Creatinine 0.4 MG/DL (0.55-1.30) L Estimat Glomerular Filtration Rate mL/min (>60) Glucose Level 90 MG/DL (74-106) Calcium Level 7.4 MG/DL (8.5-10.1) L Total Bilirubin 0.3 MG/DL (0.2-1.0) Aspartate Amino Transf (AST/SGOT) 30 U/L (15-37) Alanine Aminotransferase (ALT/SGPT) 13 U/L (12-78) Alkaline Phosphatase 249 U/L (46-116) H Total Protein 5.1 G/DL (6.4-8.2) L Albumin 1.2 G/DL (3.4-5.0) L Globulin 3.9 g/dL Albumin/Globulin Ratio 0.3 (1.0-2.7) L Neurologic Exam Objective PHYSICAL EXAMINATION: GENERAL: He is a well-developed, ill-looking black gentleman, lying in an ICU bed, in no acute distress. HEAD: Normocephalic and atraumatic. EENT: Examination benign. NECK: No neck rigidity was observed. NEUROLOGICAL EXAMINATION: MENTAL STATUS EXAMINATION: He did not arouse even on deep painful stimulation. He was unable to follow any commands and unable to communicate in any manner. SPEECH: Could not be tested. LANGUAGE: Could not be tested. CRANIAL NERVE EXAMINATION: II: He did not blink to threat. III, IV & : External ocular movements were present on oculocephalic maneuvers. The pupils were 3 mm in diameter, equal, round, regular, and reactive sluggishly to light. V & VII: The corneal reflexes were present bilaterally. However, the right- sided reflex was significantly diminished compared to the left. VIII: He seemed to be able to hear and had no nystagmus. IX & X: Gag reflex was suppressed. XI: The sternocleidomastoids and trapezii functioned minimally. XII: The tongue was in the midline. MOTOR SYSTEM: The tone was increased in all four extremities with spasticity more marked on the right than on the left. Examination of muscle mass revealed generalized muscle wasting, again more marked on the right than on the left. Examination of power was impossible to perform on individual muscle groups. However, he did move all four extremities on deep pain with possibly right greater than left-sided weakness. SENSORY EXAMINATION: He responded appropriately to deep pain with less vigorous responses on the right side compared to the left. REFLEXES: Trace+ and bilaterally symmetrical at the biceps, triceps, brachioradialis. 0 at both knees and ankles. The plantar responses were extensor bilaterally. COORDINATION, STANCE & GAIT: Could not be tested. Impression/Recommendations Diagnostic Impression 1. Mr. Sagar Narvaez is a 72-year-old, [place] gentleman, of unknown handedness, who does have a past history of cerebrovascular disease with a prior stroke, pulmonary tuberculosis, chronic respiratory failure for which he has tracheostomy, and dysphagia for which he has a gastrostomy; who lives [place] [facility] where he was noted to have an alteration in his mental state in the form of increased lethargy. He was thus brought into the [facility] emergency room and following admission, he apparently spiked a fever to 103 degrees Fahrenheit followed by multiple seizures. He was cooled down, given Ativan and started on Keppra and has been seizure-free since then. 2. He continues to be poorly responsive. His eyes are open but he is unresponsive to any external stimuli. There has been no improvement in his mental state. He continues to be seizure-free. He continues to be non- functional. 3. On neurological examination, at this time, he cannot be aroused even on deep pain. His corneal reflex is diminished on the right side compared to the left. 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 In addition, he responds to deep pain, less on the right than on the left. His deep tendon reflexes are globally diminished and his plantar responses are extensor bilaterally. 4. Laboratory data on my initial evaluation revealed that his WBC count is creeping up from 4.4 to 9.5. He is significantly anemic with a hemoglobin of 8.8 G. His chemistry panel reveals that his bilirubin is elevated to 1.1. His alkaline phosphatase is elevated to 367, his AST is elevated to 52. His albumin is low at 1.9. His arterial blood gas reveals a pCO2 of 29 and a pO2 of 59 with a pH of 7.43. His urinalysis reveals 2+ leukocyte esterase with 2-4 RBCs and 2-4 WBCs per high-power field. 5. The EEG done on 04/27/18 revealed a moderately severe encephalopathy and left > right hemispheric dysfunction. No inter-ictal discharges were seen. 6. The CT of the brain done on 04/30/18 revealed multiple old bilateral cerebral infarcts involving the left > right brain. 7. 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 Recommendations 1. Continue present management. 2. Continue Keppra 750 mg q.12 hours. 3. Observe. Mercedes Coelho M.D., M.S.P.Rosa M. MERCEDES COELHO May 03, 2018 15:01
[2018-05-03 16:00] VITALS: BP 151/73
[2018-05-03 20:00] VITALS: BP 141/76
--- NOTE | 2018-05-03 20:15 | Progress Note ---
CARDIOLOGY PROGRESS NOTE DATE: 05/02/2018 SUBJECTIVE: The patient remains on ventilator support via tracheostomy. Monitored rhythm is sinus with occasional atrial ectopy. He remains afebrile. He responds to family's cues by opening his eyes. OBJECTIVE: VITAL SIGNS: Blood pressure 111/59, pulse 70, and respirations 16. LUNGS: Coarse breath sounds. Thin trach secretions. HEART: Regular rhythm and rate. Normal S1, S2. ABDOMEN: Soft. EXTREMITIES: Trace edema. DIAGNOSTIC DATA: CT scan reveals microvascular disease. IMPRESSION: 1. Cerebrovascular disease. 2. Seizure disorder. 3. Sepsis. 4. Ventilator-dependent respiratory failure. 5. Pulmonary tuberculosis. 6. Status post shock. 7. Secondary sinus tachycardia. 8. Resolved hypokalemia and hypomagnesemia. 9. Metabolic acidosis, recovered. 10. Acute diastolic congestive heart failure. 11. Chest x-ray reveals some improvement in interstitial parenchymal disease of the left lung field . PLAN: 1. Antimicrobials. 2. Ventilator support. 3. Monitor electrolytes and replace as needed. 4. Cardiac monitoring. 5. Diuresis based on clinical parameters. Jones Arauz M.D. DR: OLEG JOB#: [id number] CC:
[2018-05-03] MEDS: Dyna-Hex 2% Top Sol 2oz TOPIC SCH (21:06)
[2018-05-03] MEDS: Tamsulosin 0.4mg cap ORAL SCH (21:07)
--- NOTE | 2018-05-03 21:15 | Progress Note ---
DATE: 05/03/2018 CARDIOLOGY PROGRESS NOTE SUBJECTIVE: The patient is on ventilator support via trach. Monitored rhythm sinus. Continues to require multiple antibiotics as well as anti-TB therapy. OBJECTIVE: VITAL SIGNS: Blood pressure 155/77, pulse 66, respirations 24, and temperature 99.1. LUNGS: Coarse breath sounds with rhonchi. HEART: Regular rhythm and rate. Normal S1 and S2. ABDOMEN: Soft. G-tube intact. EXTREMITIES: Trace edema. IMPRESSION: 1. Acute diastolic congestive heart failure, now compensated. 2. Hypertension with overall adequate blood pressure control. 3. Encephalopathy due to metabolic and toxic parameters. 4. Recovering sepsis. 5. Pulmonary tuberculosis. 6. Healthcare-acquired pneumonia. 7. Respiratory failure with tracheostomy. 8. Seizure disorder. 9. Metabolic acidosis. 10. Multi-infarct cerebrovascular disease. PLAN: 1. Anti-platelet therapy if no GI contraindication. 2. Antimicrobials per Infectious Disease artist consultant. 3. Ventilator support with wean as able. 4. Trend natriuretic peptide assay. 5. Monitor volume status and diuresis based on clinical parameters. 6. Continue beta-blockade. 7. We will follow. Jones Arauz M.D. DR: MARCIAL JOB#: [id number] CC:
[2018-05-04] VITALS: BP 157/73
[2018-05-04 04:00] VITALS: BP 152/77
[2018-05-04 05:37] LABS: BASOPHILS % (AUTO) 0.4 % (0.0-2.0); EOSINOPHILS % (AUTO) 1.3 % (0.0-3.0); HEMATOCRIT 25.4 % (42.0-52.0); HEMOGLOBIN 8.1 G/DL (14.2-18.0); LYMPHOCYTES % (AUTO) 14.3 % (20.0-45.0); MEAN CORPUSCULAR VOLUME 77 FL (80-99); MONOCYTES % (AUTO) 12.4 % (1.0-10.0); NEUTROPHILS % (AUTO) 71.6 % (45.0-75.0); PLATELET COUNT 201 K/UL (150-450); RED BLOOD COUNT 3.31 M/UL (4.70-6.10); RED CELL DISTRIBUTION WIDTH 17.4 % (11.6-14.8); WHITE BLOOD COUNT 4.9 K/UL (4.8-10.8)
[2018-05-04 05:57] LABS: ALANINE AMINOTRANSFERASE 16 U/L (12-78); ALBUMIN 1.2 G/DL (3.4-5.0); ALBUMIN/GLOBULIN RATIO 0.3 (1.0-2.7); ALKALINE PHOSPHATASE 263 U/L (46-116); ANION GAP 7 mmol/L (5-15); ASPARTATE AMINO TRANSFERASE 34 U/L (15-37); BILIRUBIN,TOTAL 0.3 MG/DL (0.2-1.0); BLOOD UREA NITROGEN 18 mg/dL (7-18); CARBON DIOXIDE 26 MMOL/L (21-32); CHLORIDE 106 MMOL/L (98-107); CREATININE 0.5 MG/DL (0.55-1.30); POTASSIUM 3.6 MMOL/L (3.5-5.1); SODIUM 139 MMOL/L (136-145)
[2018-05-04 08:00] VITALS: BP 152/82
--- NOTE | 2018-05-04 08:15 | General Progress Note ---
Assessment/Plan Assessment/Plan Assessment/Plan Assessment/Plan Assessment - suspected early cirrhosis based on imaging - UGIB, resolved - Anemia - Resp failure - s/p PEG and Trach Recommendations - check serologic w/u for chronic liver disease - hepatitis A/B/C negative - continue TF Subjective ROS Limited/Unobtainable: No Allergies: Coded Allergies: No Known Allergies (Unverified , 01/27/17) Objective Last 24 Hour Vital Signs Date Time Temp Pulse Resp B/P (MAP) Pulse Ox O2 Delivery O2 Flow Rate FiO2 05/04/18 07:55 69 26 30 05/04/18 05:13 68 24 30 05/04/18 04:00 98.5 71 22 152/77 (102) 99 98.5 05/04/18 04:00 30 05/04/18 04:00 68 05/04/18 04:00 Mechanical Ventilator 05/04/18 03:01 69 25 30 05/04/18 00:54 66 23 30 05/04/18 00:00 97.0 64 23 157/73 (101) 100 97.0 05/04/18 00:00 Mechanical Ventilator 05/04/18 00:00 30 05/03/18 23:35 65 05/03/18 23:19 65 24 30 05/03/18 21:06 74 141/76 05/03/18 20:39 74 29 30 05/03/18 20:00 97.7 68 21 141/76 (97) 100 97.7 05/03/18 20:00 71 05/03/18 20:00 30 05/03/18 20:00 Mechanical Ventilator 05/03/18 19:04 67 25 30 05/03/18 17:00 68 26 30 05/03/18 16:00 64 05/03/18 16:00 30 05/03/18 16:00 Mechanical Ventilator 05/03/18 16:00 98.4 64 22 151/73 (99) 98 98.4 05/03/18 14:44 65 18 30 05/03/18 12:40 62 16 30 05/03/18 12:00 66 05/03/18 12:00 30 05/03/18 12:00 Mechanical Ventilator 05/03/18 12:00 98.6 71 22 159/84 (109) 100 98.6 05/03/18 10:30 59 16 30 05/03/18 09:21 66 155/77 05/03/18 09:00 69 24 30 Intake and Output 05/03/18 05/04/18 19:00 07:00 Intake Total 1627.5 ml 1632.5 ml Output Total 1000 ml 1000 ml Balance 627.5 ml 632.5 ml Free Water 150 ml 110 ml IV Total 757.5 ml 702.5 ml Tube Feeding 720 ml 720 ml Other 100 ml Output Urine Total 1000 ml 1000 ml # Bowel Movements 2 2 Laboratory Tests 05/04/18 04:00: White Blood Count 4.9, Red Blood Count 3.31L, Hemoglobin 8.1L, Hematocrit 25.4L , Mean Corpuscular Volume 77L, Mean Corpuscular Hemoglobin 24.6L, Mean Corpuscular Hemoglobin Concent 32.1, Red Cell Distribution Width 17.4H, Platelet Count 201, Mean Platelet Volume 5.3L, Neutrophils (%) (Auto) 71.6, Lymphocytes (%) (Auto) 14.3L, Monocytes (%) (Auto) 12.4H, Eosinophils (%) (Auto ) 1.3, Basophils (%) (Auto) 0.4, Sodium Level 139, Potassium Level 3.6, Chloride Level 106, Carbon Dioxide Level 26, Anion Gap 7, Blood Urea Nitrogen 18 , Creatinine 0.5L, Estimat Glomerular Filtration Rate , Glucose Level 113H, Calcium Level 7.0L, Magnesium Level 1.6L, Total Bilirubin 0.3, Aspartate Amino Transf (AST/SGOT) 34, Alanine Aminotransferase (ALT/SGPT) 16, Alkaline Phosphatase 263H, Pro-B-Type Natriuretic Peptide 3069H, Total Protein 4.7L, Albumin 1.2L, Globulin 3.5, Albumin/Globulin Ratio 0.3L Height (Feet): 5 Height (Inches): 7.00 Weight (Pounds): 140 General Appearance: no apparent distress EENT: normal ENT inspection Neck: supple Cardiovascular: normal rate Respiratory/Chest: decreased breath sounds Abdomen: normal bowel sounds, non tender, soft Extremities: non-tender Roberto Carlos Hung MD May 04, 2018 08:15
--- NOTE | 2018-05-04 09:32 | Pulmonology Progress Note ---
Assessment/Plan Assessment/Plan IMPRESSION respiratory failure possible sepsis chronic encephalopathy trach debility hypoxemia htn metabolic acidosis ho hypertension ho seizures abnormal imaging PLAN care noted and reviewed IV antibiotics noted respiratory care on full support vent support and start wean in am aspiration precautions and monitor supportive care as outlined monitor acid base and intervene suction PRN follow clinically for change and monitor for clearing and improvement oxygen therapy monitor hemodynamics and adjust prognosis guarded at present fully dependent medications/laboratory data/nursing notes reviewed in detail note reviewed and edited care discussed with RN and RT Subjective ROS Limited/Unobtainable: Yes Allergies: Coded Allergies: No Known Allergies (Unverified , 01/27/17) Subjective care discussed on vent and full supoort care in [place] reviewed comfortable hemodynamics reviewed Objective Last 24 Hour Vital Signs Date Time Temp Pulse Resp B/P (MAP) Pulse Ox O2 Delivery O2 Flow Rate FiO2 05/04/18 09:24 67 26 30 05/04/18 08:00 69 05/04/18 08:00 98.3 71 27 152/82 (105) 100 98.3 05/04/18 07:55 69 26 30 05/04/18 05:13 68 24 30 05/04/18 04:00 98.5 71 22 152/77 (102) 99 98.5 05/04/18 04:00 30 05/04/18 04:00 68 05/04/18 04:00 Mechanical Ventilator 05/04/18 03:01 69 25 30 05/04/18 00:54 66 23 30 05/04/18 00:00 97.0 64 23 157/73 (101) 100 97.0 05/04/18 00:00 Mechanical Ventilator 05/04/18 00:00 30 05/03/18 23:35 65 05/03/18 23:19 65 24 30 05/03/18 21:06 74 141/76 05/03/18 20:39 74 29 30 05/03/18 20:00 97.7 68 21 141/76 (97) 100 97.7 05/03/18 20:00 71 05/03/18 20:00 30 05/03/18 20:00 Mechanical Ventilator 05/03/18 19:04 67 25 30 05/03/18 17:00 68 26 30 05/03/18 16:00 64 05/03/18 16:00 30 05/03/18 16:00 Mechanical Ventilator 05/03/18 16:00 98.4 64 22 151/73 (99) 98 98.4 05/03/18 14:44 65 18 30 05/03/18 12:40 62 16 30 05/03/18 12:00 66 05/03/18 12:00 30 05/03/18 12:00 Mechanical Ventilator 05/03/18 12:00 98.6 71 22 159/84 (109) 100 98.6 05/03/18 10:30 59 16 30 Intake and Output 05/03/18 05/04/18 19:00 07:00 Intake Total 1627.5 ml 1632.5 ml Output Total 1000 ml 1000 ml Balance 627.5 ml 632.5 ml Free Water 150 ml 110 ml IV Total 757.5 ml 702.5 ml Tube Feeding 720 ml 720 ml Other 100 ml Output Urine Total 1000 ml 1000 ml # Bowel Movements 2 2 Objective WDWN NAD poorly responsive and overall same from yesterday moderate breath sounds bilaterally without rhonchi or wheeze [id number] without MRG NABS nontender no HSM; gt no CCE cachectic poor response to pain skin noted comfortable reviewed and edited Laboratory Tests 05/04/18 04:00: White Blood Count 4.9, Red Blood Count 3.31L, Hemoglobin 8.1L, Hematocrit 25.4L , Mean Corpuscular Volume 77L, Mean Corpuscular Hemoglobin 24.6L, Mean Corpuscular Hemoglobin Concent 32.1, Red Cell Distribution Width 17.4H, Platelet Count 201, Mean Platelet Volume 5.3L, Neutrophils (%) (Auto) 71.6, Lymphocytes (%) (Auto) 14.3L, Monocytes (%) (Auto) 12.4H, Eosinophils (%) (Auto ) 1.3, Basophils (%) (Auto) 0.4, Sodium Level 139, Potassium Level 3.6, Chloride Level 106, Carbon Dioxide Level 26, Anion Gap 7, Blood Urea Nitrogen 18 , Creatinine 0.5L, Estimat Glomerular Filtration Rate , Glucose Level 113H, Calcium Level 7.0L, Magnesium Level 1.6L, Total Bilirubin 0.3, Aspartate Amino Transf (AST/SGOT) 34, Alanine Aminotransferase (ALT/SGPT) 16, Alkaline Phosphatase 263H, Pro-B-Type Natriuretic Peptide 3069H, Total Protein 4.7L, Albumin 1.2L, Globulin 3.5, Albumin/Globulin Ratio 0.3L Current Medications Medications (Trade) Dose Ordered Sig/Iram Route PRN Reason Start Time Stop Time Status Last Admin Dose Admin Acetaminophen (Tylenol) 650 mg Q4H PRN ORAL Fever/Headache/Mild Pain 05/02/18 18:30 05/26/18 18:29 Artificial Tears (Akwa-Tears) 2 drop FIVE TIMES A DAY PRN BOTH EYES Dry Eyes 05/02/18 19:00 05/31/18 11:44 Atorvastatin Calcium (Lipitor) 10 mg BEDTIME GT 05/02/18 21:00 05/28/18 20:59 05/03/18 21:06 Ceftriaxone Sodium 1 gm/ Dextrose 55 ml @ 110 mls/hr DAILY IVPB 05/03/18 09:00 05/09/18 14:59 05/03/18 09:22 Chlorhexidine Gluconate (Letha-Hex 2%) 1 applic DAILY@2000 TOPIC 05/02/18 20:00 05/31/18 19:59 05/03/18 21:06 Clonidine HCl (Catapres Tab) 0.1 mg Q4H PRN ORAL SBP >160 05/02/18 19:00 05/28/18 10:59 Dextrose/Sodium Chloride 1,000 ml @ 50 mls/hr Q20H IV 05/02/18 17:30 05/29/18 21:21 05/03/18 12:53 Docusate Sodium (Colace) 100 mg DAILY ORAL 05/03/18 09:00 05/27/18 08:59 05/03/18 09:22 Ethambutol HCl (Myambutol) 800 mg DAILY ORAL 05/03/18 09:00 05/27/18 08:59 05/03/18 09:20 Fluconazole (Diflucan) 100 mg DAILY ORAL 05/04/18 09:00 05/11/18 08:59 Hydralazine HCl (Apresoline) 10 mg Q4H PRN IV SBP >160 05/02/18 18:18 05/28/18 18:17 Isoniazid (Inh) 300 mg DAILY ORAL 05/03/18 09:00 05/27/18 08:59 05/03/18 09:21 Levetiracetam 750 mg/Dextrose 102.5 ml @ 440 mls/hr Q12HR IV 05/02/18 21:00 05/29/18 00:59 05/03/18 21:06 Lorazepam (Ativan 2mg/ml 1ml) 2 mg Q1H PRN IV For Seizures 05/02/18 18:18 05/04/18 18:17 Metoprolol Tartrate (Lopressor) 50 mg Q12HR GT 05/02/18 21:00 05/28/18 20:59 05/03/18 21:06 Multivitamins Therapeutic (Therapeutic Multivitamin) 1 ea DAILY ORAL 05/03/18 09:00 05/27/18 08:59 05/03/18 09:20 Ondansetron HCl (Zofran) 4 mg Q6H PRN IVP Nausea & Vomiting 05/02/18 18:19 05/28/18 18:18 Pantoprazole (Protonix) 40 mg EVERY 12 HOURS IVP 05/02/18 21:00 05/29/18 08:59 05/03/18 21:06 Phosphorus (Phospha 250 Neutral) 250 mg THREE TIMES A DAY ORAL 05/02/18 18:00 05/04/18 17:59 05/03/18 17:47 Pyrazinamide (Pza) 1,000 mg DAILY ORAL 05/03/18 09:00 05/28/18 08:59 05/03/18 09:20 Pyridoxine HCl (Vitamin B6) 50 mg DAILY ORAL 05/03/18 09:00 05/27/18 08:59 05/03/18 09:19 Rifampin (Rifadin) 600 mg DAILY ORAL 05/03/18 09:00 05/27/18 08:59 05/03/18 09:22 Sennosides (Senokot) 2 tab BIDPRN PRN GT Constipation 05/02/18 18:20 05/27/18 18:19 Tamsulosin HCl (Flomax) 0.4 mg BEDTIME ORAL 05/02/18 21:00 05/27/18 20:59 05/03/18 21:07 Nakul Cisse MD May 04, 2018 09:32
--- NOTE | 2018-05-04 09:37 | General Progress Note ---
Assessment/Plan Problem List: (1) Status epilepticus ICD Codes: G40.901 - Epilepsy, unspecified, not intractable, with status epilepticus SNOMED: 963206147 (2) Encephalopathy acute ICD Codes: G93.40 - Encephalopathy, unspecified SNOMED: 62221024, 198745958 (3) Probable sepsis ICD Codes: A41.9 - Sepsis, unspecified organism SNOMED: 826057476 (4) Dementia ICD Codes: F03.90 - Unspecified dementia without behavioral disturbance SNOMED: 92902921 (5) Encephalopathy ICD Codes: G93.40 - Encephalopathy, unspecified SNOMED: 01880123 (6) Sepsis ICD Codes: A41.9 - Sepsis, unspecified organism SNOMED: 10930794 (7) Pulmonary tuberculosis ICD Codes: A15.0 - Tuberculosis of lung SNOMED: 725459855 (8) Dehydration ICD Codes: E86.0 - Dehydration SNOMED: 05369941 (9) Altered level of consciousness ICD Codes: R40.4 - Transient alteration of awareness SNOMED: 7305643 Status: stable, progressing Assessment/Plan vent support resp rx PPI rx abx per ID TB rx sz rx per neuro monitor cxr follow up sputum cultures d/w - doesnt want discharged until "better." Subjective ROS Limited/Unobtainable: No Constitutional: Reports: malaise, weakness HEENT: Reports: no symptoms Cardiovascular: Reports: no symptoms Respiratory: Reports: cough, shortness of breath, sputum Gastrointestinal/Abdominal: Reports: difficulty swallowing Genitourinary: Reports: no symptoms Neurologic/Psychiatric: Reports: pre-existing deficit Endocrine: Reports: no symptoms Hematologic/Lymphatic: Reports: anemia Allergies: Coded Allergies: No Known Allergies (Unverified , 01/27/17) All Systems: reviewed and negative except above Subjective remains stable. poorly responsive. on the vent. no szs. labs noted. family concerned about pts "breathing." Objective Last 24 Hour Vital Signs Date Time Temp Pulse Resp B/P (MAP) Pulse Ox O2 Delivery O2 Flow Rate FiO2 05/04/18 09:24 67 26 30 05/04/18 08:00 69 05/04/18 08:00 98.3 71 27 152/82 (105) 100 98.3 05/04/18 07:55 69 26 30 05/04/18 05:13 68 24 30 05/04/18 04:00 98.5 71 22 152/77 (102) 99 98.5 05/04/18 04:00 30 05/04/18 04:00 68 05/04/18 04:00 Mechanical Ventilator 05/04/18 03:01 69 25 30 05/04/18 00:54 66 23 30 05/04/18 00:00 97.0 64 23 157/73 (101) 100 97.0 05/04/18 00:00 Mechanical Ventilator 05/04/18 00:00 30 05/03/18 23:35 65 05/03/18 23:19 65 24 30 05/03/18 21:06 74 141/76 05/03/18 20:39 74 29 30 05/03/18 20:00 97.7 68 21 141/76 (97) 100 97.7 05/03/18 20:00 71 05/03/18 20:00 30 05/03/18 20:00 Mechanical Ventilator 05/03/18 19:04 67 25 30 05/03/18 17:00 68 26 30 05/03/18 16:00 64 05/03/18 16:00 30 05/03/18 16:00 Mechanical Ventilator 05/03/18 16:00 98.4 64 22 151/73 (99) 98 98.4 05/03/18 14:44 65 18 30 05/03/18 12:40 62 16 30 05/03/18 12:00 66 05/03/18 12:00 30 05/03/18 12:00 Mechanical Ventilator 05/03/18 12:00 98.6 71 22 159/84 (109) 100 98.6 05/03/18 10:30 59 16 30 Intake and Output 05/03/18 05/04/18 19:00 07:00 Intake Total 1627.5 ml 1632.5 ml Output Total 1000 ml 1000 ml Balance 627.5 ml 632.5 ml Free Water 150 ml 110 ml IV Total 757.5 ml 702.5 ml Tube Feeding 720 ml 720 ml Other 100 ml Output Urine Total 1000 ml 1000 ml # Bowel Movements 2 2 Laboratory Tests 05/04/18 04:00: White Blood Count 4.9, Red Blood Count 3.31L, Hemoglobin 8.1L, Hematocrit 25.4L , Mean Corpuscular Volume 77L, Mean Corpuscular Hemoglobin 24.6L, Mean Corpuscular Hemoglobin Concent 32.1, Red Cell Distribution Width 17.4H, Platelet Count 201, Mean Platelet Volume 5.3L, Neutrophils (%) (Auto) 71.6, Lymphocytes (%) (Auto) 14.3L, Monocytes (%) (Auto) 12.4H, Eosinophils (%) (Auto ) 1.3, Basophils (%) (Auto) 0.4, Sodium Level 139, Potassium Level 3.6, Chloride Level 106, Carbon Dioxide Level 26, Anion Gap 7, Blood Urea Nitrogen 18 , Creatinine 0.5L, Estimat Glomerular Filtration Rate , Glucose Level 113H, Calcium Level 7.0L, Magnesium Level 1.6L, Total Bilirubin 0.3, Aspartate Amino Transf (AST/SGOT) 34, Alanine Aminotransferase (ALT/SGPT) 16, Alkaline Phosphatase 263H, Pro-B-Type Natriuretic Peptide 3069H, Total Protein 4.7L, Albumin 1.2L, Globulin 3.5, Albumin/Globulin Ratio 0.3L Height (Feet): 5 Height (Inches): 7.00 Weight (Pounds): 140 Objective General Appearance: WD/WN, cachetic, thin Neck: supple Cardiovascular: tachycardia Respiratory/Chest: rhonchi - bilaterally Abdomen: normal bowel sounds, non tender, soft, no organomegaly Edema: no edema noted Arm (L), no edema noted Arm (R), no edema noted Leg (L), no edema noted Leg (R), no edema noted Pedal (L), no edema noted Pedal (R), no edema noted Generalized Jarrod Vásquez MD May 04, 2018 09:37
[2018-05-04] MEDS: Metoprolol Tartrate 50mg tab GT SCH ×2 (09:47→20:58)
[2018-05-04] MEDS: Pantoprazole Inj IVP SCH ×2 (09:47→20:39)
[2018-05-04] MEDS: Fluconazole 100mg tab ORAL SCH (09:47)
[2018-05-04] MEDS: Pyridoxine 50mg tab ORAL SCH (09:48)
[2018-05-04] MEDS: Multivitamin w/Minerals tab ORAL SCH (09:48)
[2018-05-04] MEDS: Isoniazid 300mg tab ORAL SCH (09:48)
[2018-05-04] MEDS: Phospha 250 Neutral tab ORAL SCH ×2 (09:49→14:08)
[2018-05-04] MEDS: D5NS 1,000 ML IV SCH (09:50)
[2018-05-04] MEDS: levETIRAcetam 750 MG in D5W 95 ML IV SCH ×2 (10:04→21:41)
[2018-05-04] MEDS: cefTRIAXone 1 GM in D5W 55 ML IVPB SCH (10:05)
[2018-05-04] MEDS: Docusate 100mg/10ml Liq ORAL SCH (10:05)
--- NOTE | 2018-05-04 10:07 | Infectious Diseases Prog Note ---
Assessment/Plan Assessment/Plan A; Fever resolved Pneumonia Fungal UTI Pulmonary TB AMS VDRF VRE colozation history of CVA Gastritis P; Continue Rocephin & Fluconazole Continue TB treatment with [facility] Subjective ROS Limited/Unobtainable: Yes Allergies: Coded Allergies: No Known Allergies (Unverified , 01/27/17) Objective Vital Signs Last 24 Hour Vital Signs Date Time Temp Pulse Resp B/P (MAP) Pulse Ox O2 Delivery O2 Flow Rate FiO2 05/04/18 09:47 67 152/82 05/04/18 09:24 67 26 30 05/04/18 08:00 69 05/04/18 08:00 98.3 71 27 152/82 (105) 100 98.3 05/04/18 07:55 69 26 30 05/04/18 05:13 68 24 30 05/04/18 04:00 98.5 71 22 152/77 (102) 99 98.5 05/04/18 04:00 30 05/04/18 04:00 68 05/04/18 04:00 Mechanical Ventilator 05/04/18 03:01 69 25 30 05/04/18 00:54 66 23 30 05/04/18 00:00 97.0 64 23 157/73 (101) 100 97.0 05/04/18 00:00 Mechanical Ventilator 05/04/18 00:00 30 05/03/18 23:35 65 05/03/18 23:19 65 24 30 05/03/18 21:06 74 141/76 05/03/18 20:39 74 29 30 05/03/18 20:00 97.7 68 21 141/76 (97) 100 97.7 05/03/18 20:00 71 05/03/18 20:00 30 05/03/18 20:00 Mechanical Ventilator 05/03/18 19:04 67 25 30 05/03/18 17:00 68 26 30 05/03/18 16:00 64 05/03/18 16:00 30 05/03/18 16:00 Mechanical Ventilator 05/03/18 16:00 98.4 64 22 151/73 (99) 98 98.4 05/03/18 14:44 65 18 30 05/03/18 12:40 62 16 30 05/03/18 12:00 66 05/03/18 12:00 30 05/03/18 12:00 Mechanical Ventilator 05/03/18 12:00 98.6 71 22 159/84 (109) 100 98.6 05/03/18 10:30 59 16 30 Height (Feet): 5 Height (Inches): 7.00 Weight (Pounds): 140 HEENT: status post trach Respiratory/Chest: lungs clear, other - on ventilator Cardiovascular: normal rate Abdomen: soft, non tender, other - GT feeding Extremities: other - edema of feet & right hand Neurologic/Psychiatric: unresponsiveness Laboratory Tests Test 05/04/18 04:00 White Blood Count 4.9 K/UL (4.8-10.8) Red Blood Count 3.31 M/UL (4.70-6.10) L Hemoglobin 8.1 G/DL (14.2-18.0) L Hematocrit 25.4 % (42.0-52.0) L Mean Corpuscular Volume 77 FL (80-99) L Mean Corpuscular Hemoglobin 24.6 PG (27.0-31.0) L Mean Corpuscular Hemoglobin Concent 32.1 G/DL (32.0-36.0) Red Cell Distribution Width 17.4 % (11.6-14.8) H Platelet Count 201 K/UL (150-450) Mean Platelet Volume 5.3 FL (6.5-10.1) L Neutrophils (%) (Auto) 71.6 % (45.0-75.0) Lymphocytes (%) (Auto) 14.3 % (20.0-45.0) L Monocytes (%) (Auto) 12.4 % (1.0-10.0) H Eosinophils (%) (Auto) 1.3 % (0.0-3.0) Basophils (%) (Auto) 0.4 % (0.0-2.0) Sodium Level 139 MMOL/L (136-145) Potassium Level 3.6 MMOL/L (3.5-5.1) Chloride Level 106 MMOL/L (98-107) Carbon Dioxide Level 26 MMOL/L (21-32) Anion Gap 7 mmol/L (5-15) Blood Urea Nitrogen 18 mg/dL (7-18) Creatinine 0.5 MG/DL (0.55-1.30) L Estimat Glomerular Filtration Rate mL/min (>60) Glucose Level 113 MG/DL (74-106) H Calcium Level 7.0 MG/DL (8.5-10.1) L Magnesium Level 1.6 MG/DL (1.8-2.4) L Total Bilirubin 0.3 MG/DL (0.2-1.0) Aspartate Amino Transf (AST/SGOT) 34 U/L (15-37) Alanine Aminotransferase (ALT/SGPT) 16 U/L (12-78) Alkaline Phosphatase 263 U/L (46-116) H Pro-B-Type Natriuretic Peptide 3069 pg/mL (0-125) H Total Protein 4.7 G/DL (6.4-8.2) L Albumin 1.2 G/DL (3.4-5.0) L Globulin 3.5 g/dL Albumin/Globulin Ratio 0.3 (1.0-2.7) L Current Medications Medications (Trade) Dose Ordered Sig/Iram Route PRN Reason Start Time Stop Time Status Last Admin Dose Admin Acetaminophen (Tylenol) 650 mg Q4H PRN ORAL Fever/Headache/Mild Pain 05/02/18 18:30 05/26/18 18:29 Artificial Tears (Akwa-Tears) 2 drop FIVE TIMES A DAY PRN BOTH EYES Dry Eyes 05/02/18 19:00 05/31/18 11:44 Atorvastatin Calcium (Lipitor) 10 mg BEDTIME GT 05/02/18 21:00 05/28/18 20:59 05/03/18 21:06 Ceftriaxone Sodium 1 gm/ Dextrose 55 ml @ 110 mls/hr DAILY IVPB 05/03/18 09:00 05/09/18 14:59 05/03/18 09:22 Chlorhexidine Gluconate (Letha-Hex 2%) 1 applic DAILY@2000 TOPIC 05/02/18 20:00 05/31/18 19:59 05/03/18 21:06 Clonidine HCl (Catapres Tab) 0.1 mg Q4H PRN ORAL SBP >160 05/02/18 19:00 05/28/18 10:59 Dextrose/Sodium Chloride 1,000 ml @ 50 mls/hr Q20H IV 05/02/18 17:30 05/29/18 21:21 05/04/18 09:50 Docusate Sodium (Colace) 100 mg DAILY ORAL 9/29/18 09:00 05/27/18 08:59 05/03/18 09:22 Ethambutol HCl (Myambutol) 800 mg DAILY ORAL 05/03/18 09:00 05/27/18 08:59 05/04/18 09:00 Fluconazole (Diflucan) 100 mg DAILY ORAL 05/04/18 09:00 05/11/18 08:59 05/04/18 09:47 Hydralazine HCl (Apresoline) 10 mg Q4H PRN IV SBP >160 05/02/18 18:18 05/28/18 18:17 Isoniazid (Inh) 300 mg DAILY ORAL 05/03/18 09:00 05/27/18 08:59 05/04/18 09:48 Levetiracetam 750 mg/Dextrose 102.5 ml @ 440 mls/hr Q12HR IV 05/02/18 21:00 05/29/18 00:59 05/03/18 21:06 Lorazepam (Ativan 2mg/ml 1ml) 2 mg Q1H PRN IV For Seizures 05/02/18 18:18 05/04/18 18:17 Metoprolol Tartrate (Lopressor) 50 mg Q12HR GT 05/02/18 21:00 05/28/18 20:59 05/04/18 09:47 Multivitamins Therapeutic (Therapeutic Multivitamin) 1 ea DAILY ORAL 05/03/18 09:00 05/27/18 08:59 05/04/18 09:48 Ondansetron HCl (Zofran) 4 mg Q6H PRN IVP Nausea & Vomiting 05/02/18 18:19 05/28/18 18:18 Pantoprazole (Protonix) 40 mg EVERY 12 HOURS IVP 05/02/18 21:00 05/29/18 08:59 05/04/18 09:47 Phosphorus (Phospha 250 Neutral) 250 mg THREE TIMES A DAY ORAL 05/02/18 18:00 05/04/18 17:59 05/04/18 09:49 Pyrazinamide (Pza) 1,000 mg DAILY ORAL 05/03/18 09:00 05/28/18 08:59 05/04/18 09:48 Pyridoxine HCl (Vitamin B6) 50 mg DAILY ORAL 05/03/18 09:00 05/27/18 08:59 05/04/18 09:48 Rifampin (Rifadin) 600 mg DAILY ORAL 05/03/18 09:00 05/27/18 08:59 05/04/18 09:47 Sennosides (Senokot) 2 tab BIDPRN PRN GT Constipation 05/02/18 18:20 05/27/18 18:19 Tamsulosin HCl (Flomax) 0.4 mg BEDTIME ORAL 05/02/18 21:00 05/27/18 20:59 05/03/18 21:07 Rahul Shen MD May 04, 2018 10:07
[2018-05-04 12:00] VITALS: BP 152/74
--- NOTE | 2018-05-04 14:40 | Neurology Progress Note ---
Interim History Interim History Interim History Mr. Narvaez is poorly responsive. He has his eyes closed and does not respond to any external stimuli other than pain. There has been no improvement in his mental state. He continues to be seizure-free. He continues to be non-functional. His cardio-respiratory function is stable. Review of Systems Neuro Review of Systems Unable to obtain. Objective Physical Exam Last Vital Signs Date Time Temp Pulse Resp B/P (MAP) Pulse Ox O2 Delivery O2 Flow Rate FiO2 05/04/18 13:16 64 22 30 05/04/18 12:00 98.5 152/74 (100) 100 98.5 05/04/18 12:00 Mechanical Ventilator 04/28/18 19:14 Laboratory Tests Test 05/04/18 04:00 White Blood Count 4.9 K/UL (4.8-10.8) Red Blood Count 3.31 M/UL (4.70-6.10) L Hemoglobin 8.1 G/DL (14.2-18.0) L Hematocrit 25.4 % (42.0-52.0) L Mean Corpuscular Volume 77 FL (80-99) L Mean Corpuscular Hemoglobin 24.6 PG (27.0-31.0) L Mean Corpuscular Hemoglobin Concent 32.1 G/DL (32.0-36.0) Red Cell Distribution Width 17.4 % (11.6-14.8) H Platelet Count 201 K/UL (150-450) Mean Platelet Volume 5.3 FL (6.5-10.1) L Neutrophils (%) (Auto) 71.6 % (45.0-75.0) Lymphocytes (%) (Auto) 14.3 % (20.0-45.0) L Monocytes (%) (Auto) 12.4 % (1.0-10.0) H Eosinophils (%) (Auto) 1.3 % (0.0-3.0) Basophils (%) (Auto) 0.4 % (0.0-2.0) Sodium Level 139 MMOL/L (136-145) Potassium Level 3.6 MMOL/L (3.5-5.1) Chloride Level 106 MMOL/L (98-107) Carbon Dioxide Level 26 MMOL/L (21-32) Anion Gap 7 mmol/L (5-15) Blood Urea Nitrogen 18 mg/dL (7-18) Creatinine 0.5 MG/DL (0.55-1.30) L Estimat Glomerular Filtration Rate mL/min (>60) Glucose Level 113 MG/DL (74-106) H Calcium Level 7.0 MG/DL (8.5-10.1) L Magnesium Level 1.6 MG/DL (1.8-2.4) L Total Bilirubin 0.3 MG/DL (0.2-1.0) Aspartate Amino Transf (AST/SGOT) 34 U/L (15-37) Alanine Aminotransferase (ALT/SGPT) 16 U/L (12-78) Alkaline Phosphatase 263 U/L (46-116) H Pro-B-Type Natriuretic Peptide 3069 pg/mL (0-125) H Total Protein 4.7 G/DL (6.4-8.2) L Albumin 1.2 G/DL (3.4-5.0) L Globulin 3.5 g/dL Albumin/Globulin Ratio 0.3 (1.0-2.7) L Neurologic Exam Objective PHYSICAL EXAMINATION: GENERAL: He is a well-developed, ill-looking black gentleman, lying in bed, in no acute distress. HEAD: Normocephalic and atraumatic. EENT: Examination benign. NECK: No neck rigidity was observed. NEUROLOGICAL EXAMINATION: MENTAL STATUS EXAMINATION: He did not arouse even on deep painful stimulation. He was unable to follow any commands and unable to communicate in any manner. SPEECH: Could not be tested. LANGUAGE: Could not be tested. CRANIAL NERVE EXAMINATION: II: He did not blink to threat. III, IV & : External ocular movements were present on oculocephalic maneuvers. The pupils were 3 mm in diameter, equal, round, regular, and reactive sluggishly to light. V & VII: The corneal reflexes were present bilaterally. However, the right- sided reflex was significantly diminished compared to the left. VIII: He seemed to be able to hear and had no nystagmus. IX & X: Gag reflex was suppressed. XI: The sternocleidomastoids and trapezii functioned minimally. XII: The tongue was in the midline. MOTOR SYSTEM: The tone was increased in all four extremities with spasticity more marked on the right than on the left. Examination of muscle mass revealed generalized muscle wasting, again more marked on the right than on the left. Examination of power was impossible to perform on individual muscle groups. However, he did move all four extremities on deep pain with possibly right greater than left-sided weakness. SENSORY EXAMINATION: He responded appropriately to deep pain with less vigorous responses on the right side compared to the left. REFLEXES: Trace+ and bilaterally symmetrical at the biceps, triceps, brachioradialis. 0 at both knees and ankles. The plantar responses were extensor bilaterally. COORDINATION, STANCE & GAIT: Could not be tested. Impression/Recommendations Diagnostic Impression 1. Mr. Sagar Narvaez is a 72-year-old, Pakistani gentleman, of unknown handedness, who does have a past history of cerebrovascular disease with a prior stroke, pulmonary tuberculosis, chronic respiratory failure for which he has tracheostomy, and dysphagia for which he has a gastrostomy; who [place] was noted to have an alteration in his mental state in the form of increased lethargy. He was thus brought into the [facility] emergency room and following admission, he apparently spiked a fever to 103 degrees Fahrenheit followed by multiple seizures. He was cooled down, given Ativan and started on Keppra and has been seizure-free since then. 2. He is poorly responsive. He has his eyes closed and does not respond to any external stimuli other than pain. There has been no improvement in his mental state. He continues to be seizure-free. He continues to be non-functional. His cardio- respiratory function is stable. 3. On neurological examination, at this time, he cannot be aroused even on deep pain. His corneal reflex is diminished on the right side compared to the left. 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 In addition, he responds to deep pain, less on the right than on the left. His deep tendon reflexes are globally diminished and his plantar responses are extensor bilaterally. 4. Laboratory data on my initial evaluation revealed that his WBC count is creeping up from 4.4 to 9.5. He is significantly anemic with a hemoglobin of 8.8 G. His chemistry panel reveals that his bilirubin is elevated to 1.1. His alkaline phosphatase is elevated to 367, his AST is elevated to 52. His albumin is low at 1.9. His arterial blood gas reveals a pCO2 of 29 and a pO2 of 59 with a pH of 7.43. His urinalysis reveals 2+ leukocyte esterase with 2-4 RBCs and 2-4 WBCs per high-power field. 5. The EEG done on 04/27/18 revealed a moderately severe encephalopathy and left > right hemispheric dysfunction. No inter-ictal discharges were seen. 6. The CT of the brain done on 04/30/18 revealed multiple old bilateral cerebral infarcts involving the left > right brain. 7. 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 Recommendations 1. Continue present management. 2. Continue Keppra 750 mg q.12 hours. 3. Observe. Mercedes Coelho M.D., M.S.P.MERCEDES BERMUDEZ May 04, 2018 14:40
[2018-05-04] MEDS ORDERED: NS 275ml ONE (15:16)
[2018-05-04 16:00] VITALS: BP 158/84
[2018-05-04 20:00] VITALS: BP 144/79
[2018-05-04] MEDS: Dyna-Hex 2% Top Sol 2oz TOPIC SCH (20:03)
[2018-05-04] MEDS: Tamsulosin 0.4mg cap ORAL SCH (20:40)
[2018-05-04] MEDS: Artificial Tears 1.4% Op Soln BOTH EYES PRN (21:41)
--- NOTE | 2018-05-04 22:15 | Progress Note ---
DATE: 05/04/2018 CARDIOLOGY PROGRESS NOTE SUBJECTIVE: The patient remains on ventilator support. Blood pressure parameters remained stable. Monitored rhythm sinus. OBJECTIVE: LUNGS: Coarse breath sounds. Scattered rhonchi. HEART: Regular rhythm and rate. Normal S1, S2. ABDOMEN: Soft. Feeding tube intact. EXTREMITIES: Trace edema. LABORATORY DATA: White count 4.9 and hemoglobin 8.1. Potassium 3.6, BUN 18, and creatinine 0.5. Pro-natriuretic peptide is over 3,000 and albumin is 1.2. IMPRESSION: 1. Sepsis. 2. Respiratory failure. 3. Status post shock. 4. Severe protein-calorie malnutrition. 5. Acute on chronic diastolic congestive heart failure. 6. Hypomagnesemia with magnesium 1.6. 7. Potassium 3.6 with history of hypokalemia. 8. Pulmonary tuberculosis, on triple therapy. PLAN: 1. IV magnesium. 2. Potassium by G-tube. 3. Antimicrobials. 4. Ventilator support. 5. Mobilize edema with diuretics. Jones Arauz M.D. DR: ERICA JOB#: [id number] CC:
[2018-05-05] VITALS: BP 125/66
[2018-05-05 04:00] VITALS: BP 131/63
[2018-05-05] MEDS: D5NS 1,000 ML IV SCH (05:15)
[2018-05-05 05:58] LABS: BASOPHILS % (AUTO) 0.5 % (0.0-2.0); EOSINOPHILS % (AUTO) 1.7 % (0.0-3.0); HEMOGLOBIN 8.8 G/DL (14.2-18.0); LYMPHOCYTES % (AUTO) 12.2 % (20.0-45.0); MEAN CORPUSCULAR VOLUME 77 FL (80-99); MONOCYTES % (AUTO) 17.5 % (1.0-10.0); NEUTROPHILS % (AUTO) 68.1 % (45.0-75.0); PLATELET COUNT 237 K/UL (150-450); RED BLOOD COUNT 3.53 M/UL (4.70-6.10); RED CELL DISTRIBUTION WIDTH 17.7 % (11.6-14.8); WHITE BLOOD COUNT 5.1 K/UL (4.8-10.8)
[2018-05-05 06:24] LABS: ALANINE AMINOTRANSFERASE 19 U/L (12-78); ALBUMIN 1.3 G/DL (3.4-5.0); ALBUMIN/GLOBULIN RATIO 0.3 (1.0-2.7); ALKALINE PHOSPHATASE 288 U/L (46-116); ANION GAP 6 mmol/L (5-15); ASPARTATE AMINO TRANSFERASE 44 U/L (15-37); BILIRUBIN,TOTAL 0.4 MG/DL (0.2-1.0); BLOOD UREA NITROGEN 19 mg/dL (7-18); CALCIUM 7.4 MG/DL (8.5-10.1); CARBON DIOXIDE 27 MMOL/L (21-32); CHLORIDE 105 MMOL/L (98-107); CREATININE 0.5 MG/DL (0.55-1.30); POTASSIUM 3.4 MMOL/L (3.5-5.1); SODIUM 138 MMOL/L (136-145)
[2018-05-05 08:00] VITALS: BP 138/72
--- NOTE | 2018-05-05 08:23 | Pulmonology Progress Note ---
Assessment/Plan Assessment/Plan IMPRESSION respiratory failure possible sepsis chronic encephalopathy trach debility hypoxemia htn metabolic acidosis ho hypertension ho seizures abnormal imaging PLAN exam noted and reviewed IV antibiotics reviewed respiratory care on full support vent support and start wean in am elevate head supportive care as outlined monitor acid base and intervene suction PRN follow clinically for change and monitor for clearing and improvement oxygen as needed monitor hemodynamics and adjust prognosis guarded at present fully dependent medications/laboratory data/nursing notes reviewed in detail note reviewed and edited care discussed with RN and RT Subjective ROS Limited/Unobtainable: Yes Allergies: Coded Allergies: No Known Allergies (Unverified , 01/27/17) Subjective care reviewed on vent and full supoort stable in J[place]ES[place] comfortable hemodynamics noted Objective Last 24 Hour Vital Signs Date Time Temp Pulse Resp B/P (MAP) Pulse Ox O2 Delivery O2 Flow Rate FiO2 05/05/18 07:34 70 24 30 05/05/18 06:41 100.6 05/05/18 05:14 64 24 30 05/05/18 04:00 Mechanical Ventilator 05/05/18 04:00 99.0 75 20 131/63 (85) 100 99.0 05/05/18 04:00 73 05/05/18 04:00 30 05/05/18 03:11 69 26 30 05/05/18 01:37 62 24 30 05/05/18 00:00 30 05/05/18 00:00 66 05/05/18 00:00 98.6 66 20 125/66 (85) 100 98.6 05/05/18 00:00 Mechanical Ventilator 05/04/18 23:25 69 23 30 05/04/18 21:51 68 24 30 05/04/18 20:58 69 144/79 05/04/18 20:07 69 28 30 05/04/18 20:00 98.4 64 20 144/79 (100) 100 98.4 05/04/18 20:00 30 05/04/18 20:00 Mechanical Ventilator 05/04/18 20:00 64 05/04/18 16:49 65 24 30 05/04/18 16:14 69 05/04/18 16:00 30 05/04/18 16:00 98.6 60 25 158/84 (108) 100 98.6 05/04/18 16:00 Mechanical Ventilator 05/04/18 15:16 69 25 30 05/04/18 13:16 64 22 30 05/04/18 13:11 60 05/04/18 12:00 98.5 62 33 152/74 (100) 100 98.5 05/04/18 12:00 Mechanical Ventilator 05/04/18 12:00 30 05/04/18 11:17 61 24 30 05/04/18 09:47 67 152/82 05/04/18 09:24 67 26 30 Intake and Output 05/04/18 05/05/18 19:00 07:00 Intake Total 1597.5 ml 1597.5 ml Output Total 1800 ml 3200 ml Balance -202.5 ml -1602.5 ml Free Water 210 ml IV Total 607.5 ml 877.5 ml Tube Feeding 780 ml 720 ml Output Urine Total 1800 ml 3200 ml # Bowel Movements 4 2 Objective WDWN NAD poorly responsive moderate breath sounds bilaterally without rhonchi or wheeze [id number] without MRG NABS nontender no HSM; gt no CCE cachectic poor response to pain skin noted comfortable reviewed and edited Laboratory Tests 05/05/18 04:00: White Blood Count 5.1, Red Blood Count 3.53L, Hemoglobin 8.8L, Hematocrit 27.0L , Mean Corpuscular Volume 77L, Mean Corpuscular Hemoglobin 24.9L, Mean Corpuscular Hemoglobin Concent 32.6, Red Cell Distribution Width 17.7H, Platelet Count 237, Mean Platelet Volume 6.5, Neutrophils (%) (Auto) 68.1, Lymphocytes (%) (Auto) 12.2L, Monocytes (%) (Auto) 17.5H, Eosinophils (%) (Auto ) 1.7, Basophils (%) (Auto) 0.5, Sodium Level 138, Potassium Level 3.4L, Chloride Level 105, Carbon Dioxide Level 27, Anion Gap 6, Blood Urea Nitrogen 19H, Creatinine 0.5L, Estimat Glomerular Filtration Rate , Glucose Level 133H, Calcium Level 7.4L, Magnesium Level 1.7L, Total Bilirubin 0.4, Aspartate Amino Transf (AST/SGOT) 44H, Alanine Aminotransferase (ALT/SGPT) 19, Alkaline Phosphatase 288H, Total Protein 5.4L, Albumin 1.3L, Globulin 4.1, Albumin/ Globulin Ratio 0.3L Current Medications Medications (Trade) Dose Ordered Sig/Iram Route PRN Reason Start Time Stop Time Status Last Admin Dose Admin Acetaminophen (Tylenol) 650 mg Q4H PRN ORAL Fever/Headache/Mild Pain 05/02/18 18:30 05/26/18 18:29 05/05/18 06:41 Artificial Tears (Akwa-Tears) 2 drop FIVE TIMES A DAY PRN BOTH EYES Dry Eyes 05/02/18 19:00 05/31/18 11:44 05/04/18 21:41 Atorvastatin Calcium (Lipitor) 10 mg BEDTIME GT 05/02/18 21:00 05/28/18 20:59 05/04/18 20:40 Ceftriaxone Sodium 1 gm/ Dextrose 55 ml @ 110 mls/hr DAILY IVPB 05/03/18 09:00 05/09/18 14:59 05/04/18 10:05 Chlorhexidine Gluconate (Letha-Hex 2%) 1 applic DAILY@2000 TOPIC 05/02/18 20:00 05/31/18 19:59 05/04/18 20:03 Clonidine HCl (Catapres Tab) 0.1 mg Q4H PRN ORAL SBP >160 05/02/18 19:00 05/28/18 10:59 Dextrose/Sodium Chloride 1,000 ml @ 50 mls/hr Q20H IV 05/02/18 17:30 05/29/18 21:21 05/05/18 05:15 Docusate Sodium (Colace) 100 mg DAILY ORAL 05/03/18 09:00 05/27/18 08:59 05/04/18 10:05 Ethambutol HCl (Myambutol) 800 mg DAILY ORAL 05/03/18 09:00 05/27/18 08:59 05/04/18 09:00 Fluconazole (Diflucan) 100 mg DAILY ORAL 05/04/18 09:00 05/11/18 08:59 05/04/18 09:47 Hydralazine HCl (Apresoline) 10 mg Q4H PRN IV SBP >160 05/02/18 18:18 05/28/18 18:17 Isoniazid (Inh) 300 mg DAILY ORAL 05/03/18 09:00 05/27/18 08:59 05/04/18 09:48 Levetiracetam 750 mg/Dextrose 102.5 ml @ 440 mls/hr Q12HR IV 05/02/18 21:00 05/29/18 00:59 05/04/18 21:41 Metoprolol Tartrate (Lopressor) 50 mg Q12HR GT 05/02/18 21:00 05/28/18 20:59 05/04/18 20:58 Multivitamins Therapeutic (Therapeutic Multivitamin) 1 ea DAILY ORAL 05/03/18 09:00 05/27/18 08:59 05/04/18 09:48 Ondansetron HCl (Zofran) 4 mg Q6H PRN IVP Nausea & Vomiting 05/02/18 18:19 05/28/18 18:18 Pantoprazole (Protonix) 40 mg EVERY 12 HOURS IVP 05/02/18 21:00 05/29/18 08:59 05/04/18 20:39 Pyrazinamide (Pza) 1,000 mg DAILY ORAL 05/03/18 09:00 05/28/18 08:59 05/04/18 09:48 Pyridoxine HCl (Vitamin B6) 50 mg DAILY ORAL 05/03/18 09:00 05/27/18 08:59 05/04/18 09:48 Rifampin (Rifadin) 600 mg DAILY ORAL 05/03/18 09:00 05/27/18 08:59 05/04/18 09:47 Sennosides (Senokot) 2 tab BIDPRN PRN GT Constipation 05/02/18 18:20 05/27/18 18:19 Tamsulosin HCl (Flomax) 0.4 mg BEDTIME ORAL 05/02/18 21:00 05/27/18 20:59 05/04/18 20:40 Nakul Cisse MD May 05, 2018 08:23
[2018-05-05] MEDS: Pantoprazole Inj IVP SCH (08:34)
[2018-05-05] MEDS: cefTRIAXone 1 GM in D5W 55 ML IVPB SCH (08:34)
[2018-05-05] MEDS: Docusate 100mg/10ml Liq ORAL SCH (08:35)
[2018-05-05] MEDS: Isoniazid 300mg tab ORAL SCH (08:35)
[2018-05-05] MEDS: Multivitamin w/Minerals tab ORAL SCH (08:36)
[2018-05-05] MEDS: Pyridoxine 50mg tab ORAL SCH (08:36)
[2018-05-05] MEDS: Metoprolol Tartrate 50mg tab GT SCH ×2 (08:36→20:59)
[2018-05-05] MEDS: Fluconazole 100mg tab ORAL SCH (08:37)
[2018-05-05 08:59] LABS: APPEARANCE,URINE CLEAR; BILIRUBIN, URINE NEGATIVE (NEGATIVE); GLUCOSE, URINE (UA) NEGATIVE (NEGATIVE); KETONES,URINE NEGATIVE (NEGATIVE); LEUKOCYTE ESTERASE ,URINE 1+ (NEGATIVE); NITRITE,URINE NEGATIVE (NEGATIVE); PH,URINE 7 (4.5-8.0); PROTEIN,URINE NEGATIVE (NEGATIVE); UROBILINOGEN,URINE 4 MG/DL (0.0-1.0)
[2018-05-05 09:09] LABS: COLOR,URINE YELLOW
[2018-05-05] MEDS ORDERED: Heparin 2000 units/Ns 1000ml IV PRN (10:00)
[2018-05-05] MEDS ORDERED: Lidocaine 1% Plain 30 ml INJ PRN (10:00)
--- NOTE | 2018-05-05 10:01 | General Progress Note ---
Assessment/Plan Problem List: (1) Status epilepticus ICD Codes: G40.901 - Epilepsy, unspecified, not intractable, with status epilepticus SNOMED: 637321753 (2) Encephalopathy acute ICD Codes: G93.40 - Encephalopathy, unspecified SNOMED: 76518123, 817077456 (3) Probable sepsis ICD Codes: A41.9 - Sepsis, unspecified organism SNOMED: 002209372 (4) Dementia ICD Codes: F03.90 - Unspecified dementia without behavioral disturbance SNOMED: 20074602 (5) Encephalopathy ICD Codes: G93.40 - Encephalopathy, unspecified SNOMED: 21887104 (6) Sepsis ICD Codes: A41.9 - Sepsis, unspecified organism SNOMED: 05151985 (7) Pulmonary tuberculosis ICD Codes: A15.0 - Tuberculosis of lung SNOMED: 362791371 (8) Dehydration ICD Codes: E86.0 - Dehydration SNOMED: 18106521 (9) Altered level of consciousness ICD Codes: R40.4 - Transient alteration of awareness SNOMED: 1203515 Assessment/Plan vent support resp rx PPI rx abx per ID TB rx sz rx per neuro monitor cxr repeat cultures picc line dc TLC d/w /children x 15 mins- doesnt want discharged until "better. Subjective ROS Limited/Unobtainable: Yes Constitutional: Reports: malaise, weakness HEENT: Reports: no symptoms Cardiovascular: Reports: no symptoms Respiratory: Reports: no symptoms Gastrointestinal/Abdominal: Reports: difficulty swallowing Genitourinary: Reports: no symptoms Neurologic/Psychiatric: Reports: pre-existing deficit, seizure Endocrine: Reports: no symptoms Hematologic/Lymphatic: Reports: anemia Allergies: Coded Allergies: No Known Allergies (Unverified , 01/27/17) All Systems: reviewed and negative except above Subjective remains stable. poorly responsive. on the vent. no szs. labs noted. family concerned about pts "breathing." +fevers this am Objective Last 24 Hour Vital Signs Date Time Temp Pulse Resp B/P (MAP) Pulse Ox O2 Delivery O2 Flow Rate FiO2 05/05/18 08:36 68 138/72 05/05/18 08:22 97.5 05/05/18 08:00 97.5 68 26 138/72 (94) 100 97.5 05/05/18 07:34 70 24 30 05/05/18 06:41 100.6 05/05/18 05:14 64 24 30 05/05/18 04:00 Mechanical Ventilator 05/05/18 04:00 99.0 75 20 131/63 (85) 100 99.0 05/05/18 04:00 73 05/05/18 04:00 30 05/05/18 03:11 69 26 30 05/05/18 01:37 62 24 30 05/05/18 00:00 30 05/05/18 00:00 66 05/05/18 00:00 98.6 66 20 125/66 (85) 100 98.6 05/05/18 00:00 Mechanical Ventilator 05/04/18 23:25 69 23 30 05/04/18 21:51 68 24 30 05/04/18 20:58 69 144/79 05/04/18 20:07 69 28 30 05/04/18 20:00 98.4 64 20 144/79 (100) 100 98.4 05/04/18 20:00 30 05/04/18 20:00 Mechanical Ventilator 05/04/18 20:00 64 05/04/18 16:49 65 24 30 05/04/18 16:14 69 05/04/18 16:00 30 05/04/18 16:00 98.6 60 25 158/84 (108) 100 98.6 05/04/18 16:00 Mechanical Ventilator 05/04/18 15:16 69 25 30 05/04/18 13:16 64 22 30 05/04/18 13:11 60 05/04/18 12:00 98.5 62 33 152/74 (100) 100 98.5 05/04/18 12:00 Mechanical Ventilator 05/04/18 12:00 30 05/04/18 11:17 61 24 30 Intake and Output 05/04/18 05/05/18 19:00 07:00 Intake Total 1597.5 ml 1597.5 ml Output Total 1800 ml 3200 ml Balance -202.5 ml -1602.5 ml Free Water 210 ml IV Total 607.5 ml 877.5 ml Tube Feeding 780 ml 720 ml Output Urine Total 1800 ml 3200 ml # Bowel Movements 4 2 Laboratory Tests 05/05/18 04:00: White Blood Count 5.1, Red Blood Count 3.53L, Hemoglobin 8.8L, Hematocrit 27.0L , Mean Corpuscular Volume 77L, Mean Corpuscular Hemoglobin 24.9L, Mean Corpuscular Hemoglobin Concent 32.6, Red Cell Distribution Width 17.7H, Platelet Count 237, Mean Platelet Volume 6.5, Neutrophils (%) (Auto) 68.1, Lymphocytes (%) (Auto) 12.2L, Monocytes (%) (Auto) 17.5H, Eosinophils (%) (Auto ) 1.7, Basophils (%) (Auto) 0.5, Sodium Level 138, Potassium Level 3.4L, Chloride Level 105, Carbon Dioxide Level 27, Anion Gap 6, Blood Urea Nitrogen 19H, Creatinine 0.5L, Estimat Glomerular Filtration Rate , Glucose Level 133H, Calcium Level 7.4L, Magnesium Level 1.7L, Total Bilirubin 0.4, Aspartate Amino Transf (AST/SGOT) 44H, Alanine Aminotransferase (ALT/SGPT) 19, Alkaline Phosphatase 288H, Total Protein 5.4L, Albumin 1.3L, Globulin 4.1, Albumin/ Globulin Ratio 0.3L 05/05/18 08:15: Urine Color Yellow, Urine Appearance Clear, Urine pH 7, Urine Specific [place] 1.005, Urine Protein Negative, Urine Glucose (UA) Negative, Urine Ketones Negative, Urine Blood Negative, Urine Nitrite Negative, Urine Bilirubin Negative , Urine Urobilinogen 4H, Urine Leukocyte Esterase 1+H, Urine RBC 0, Urine WBC 2- 4, Urine Squamous Epithelial Cells Occasional, Urine Bacteria Occasional, Urine Yeast OccasionalH Height (Feet): 5 Height (Inches): 7.00 Weight (Pounds): 140 Objective General Appearance: WD/WN, cachetic, thin Neck: supple Cardiovascular: tachycardia Respiratory/Chest: rhonchi - bilaterally Abdomen: normal bowel sounds, non tender, soft, no organomegaly Edema: no edema noted Arm (L), no edema noted Arm (R), no edema noted Leg (L), no edema noted Leg (R), no edema noted Pedal (L), no edema noted Pedal (R), no edema noted Generalized Jarrod Vásquez MD May 05, 2018 10:01
[2018-05-05] MEDS: levETIRAcetam 750 MG in D5W 95 ML IV SCH ×2 (10:20→20:58)
--- NOTE | 2018-05-05 11:13 | Infectious Diseases Prog Note ---
Assessment/Plan Assessment/Plan A; Fever resolved Pneumonia Fungal UTI Pulmonary TB AMS VDRF VRE colozation history of CVA Gastritis P; Continue Rocephin & Fluconazole Continue TB treatment with RIPE Subjective ROS Limited/Unobtainable: Yes Allergies: Coded Allergies: No Known Allergies (Unverified , 01/27/17) Objective Vital Signs Last 24 Hour Vital Signs Date Time Temp Pulse Resp B/P (MAP) Pulse Ox O2 Delivery O2 Flow Rate FiO2 05/05/18 11:00 56 16 30 05/05/18 10:15 66 39 30 05/05/18 08:36 68 138/72 05/05/18 08:22 97.5 05/05/18 08:00 Mechanical Ventilator 05/05/18 08:00 30 05/05/18 08:00 68 05/05/18 08:00 97.5 68 26 138/72 (94) 100 97.5 05/05/18 07:34 70 24 30 05/05/18 06:41 100.6 05/05/18 05:14 64 24 30 05/05/18 04:00 Mechanical Ventilator 05/05/18 04:00 99.0 75 20 131/63 (85) 100 99.0 05/05/18 04:00 73 05/05/18 04:00 30 05/05/18 03:11 69 26 30 05/05/18 01:37 62 24 30 05/05/18 00:00 30 05/05/18 00:00 66 05/05/18 00:00 98.6 66 20 125/66 (85) 100 98.6 05/05/18 00:00 Mechanical Ventilator 05/04/18 23:25 69 23 30 05/04/18 21:51 68 24 30 05/04/18 20:58 69 144/79 05/04/18 20:07 69 28 30 05/04/18 20:00 98.4 64 20 144/79 (100) 100 98.4 05/04/18 20:00 30 05/04/18 20:00 Mechanical Ventilator 05/04/18 20:00 64 05/04/18 16:49 65 24 30 05/04/18 16:14 69 05/04/18 16:00 30 05/04/18 16:00 98.6 60 25 158/84 (108) 100 98.6 05/04/18 16:00 Mechanical Ventilator 05/04/18 15:16 69 25 30 05/04/18 13:16 64 22 30 05/04/18 13:11 60 05/04/18 12:00 98.5 62 33 152/74 (100) 100 98.5 05/04/18 12:00 Mechanical Ventilator 05/04/18 12:00 30 05/04/18 11:17 61 24 30 Height (Feet): 5 Height (Inches): 7.00 Weight (Pounds): 140 HEENT: status post trach Respiratory/Chest: lungs clear, other - on ventilator Cardiovascular: normal rate, other - left femoral line Abdomen: soft, non tender, other - GT feeding Extremities: other - pedal edema Neurologic/Psychiatric: aphasia Laboratory Tests Test 05/05/18 04:00 05/05/18 08:15 White Blood Count 5.1 K/UL (4.8-10.8) Red Blood Count 3.53 M/UL (4.70-6.10) L Hemoglobin 8.8 G/DL (14.2-18.0) L Hematocrit 27.0 % (42.0-52.0) L Mean Corpuscular Volume 77 FL (80-99) L Mean Corpuscular Hemoglobin 24.9 PG (27.0-31.0) L Mean Corpuscular Hemoglobin Concent 32.6 G/DL (32.0-36.0) Red Cell Distribution Width 17.7 % (11.6-14.8) H Platelet Count 237 K/UL (150-450) Mean Platelet Volume 6.5 FL (6.5-10.1) Neutrophils (%) (Auto) 68.1 % (45.0-75.0) Lymphocytes (%) (Auto) 12.2 % (20.0-45.0) L Monocytes (%) (Auto) 17.5 % (1.0-10.0) H Eosinophils (%) (Auto) 1.7 % (0.0-3.0) Basophils (%) (Auto) 0.5 % (0.0-2.0) Sodium Level 138 MMOL/L (136-145) Potassium Level 3.4 MMOL/L (3.5-5.1) L Chloride Level 105 MMOL/L (98-107) Carbon Dioxide Level 27 MMOL/L (21-32) Anion Gap 6 mmol/L (5-15) Blood Urea Nitrogen 19 mg/dL (7-18) H Creatinine 0.5 MG/DL (0.55-1.30) L Estimat Glomerular Filtration Rate mL/min (>60) Glucose Level 133 MG/DL (74-106) H Calcium Level 7.4 MG/DL (8.5-10.1) L Magnesium Level 1.7 MG/DL (1.8-2.4) L Total Bilirubin 0.4 MG/DL (0.2-1.0) Aspartate Amino Transf (AST/SGOT) 44 U/L (15-37) H Alanine Aminotransferase (ALT/SGPT) 19 U/L (12-78) Alkaline Phosphatase 288 U/L (46-116) H Total Protein 5.4 G/DL (6.4-8.2) L Albumin 1.3 G/DL (3.4-5.0) L Globulin 4.1 g/dL Albumin/Globulin Ratio 0.3 (1.0-2.7) L Urine Color Yellow Urine Appearance Clear Urine pH 7 (4.5-8.0) Urine Specific [place] 1.005 (1.005-1.035) Urine Protein Negative (NEGATIVE) Urine Glucose (UA) Negative (NEGATIVE) Urine Ketones Negative (NEGATIVE) Urine Blood Negative (NEGATIVE) Urine Nitrite Negative (NEGATIVE) Urine Bilirubin Negative (NEGATIVE) Urine Urobilinogen 4 MG/DL (0.0-1.0) H Urine Leukocyte Esterase 1+ (NEGATIVE) H Urine RBC 0 /HPF (0 - 0) Urine WBC 2-4 /HPF (0 - 0) Urine Squamous Epithelial Cells Occasional /LPF Urine Bacteria Occasional /HPF (NONE) Urine Yeast Occasional /HPF (NONE) H Current Medications Medications (Trade) Dose Ordered Sig/Iram Route PRN Reason Start Time Stop Time Status Last Admin Dose Admin Acetaminophen (Tylenol) 650 mg Q4H PRN ORAL Fever/Headache/Mild Pain 05/02/18 18:30 05/26/18 18:29 05/05/18 06:41 Artificial Tears (Akwa-Tears) 2 drop FIVE TIMES A DAY PRN BOTH EYES Dry Eyes 05/02/18 19:00 05/31/18 11:44 05/04/18 21:41 Atorvastatin Calcium (Lipitor) 10 mg BEDTIME GT 05/02/18 21:00 05/28/18 20:59 05/04/18 20:40 Ceftriaxone Sodium 1 gm/ Dextrose 55 ml @ 110 mls/hr DAILY IVPB 05/03/18 09:00 05/09/18 14:59 05/05/18 08:34 Chlorhexidine Gluconate (Letha-Hex 2%) 1 applic DAILY@2000 TOPIC 05/02/18 20:00 05/31/18 19:59 05/04/18 20:03 Clonidine HCl (Catapres Tab) 0.1 mg Q4H PRN ORAL SBP >160 05/02/18 19:00 05/28/18 10:59 Dextrose/Sodium Chloride 1,000 ml @ 50 mls/hr Q20H IV 05/02/18 17:30 05/29/18 21:21 05/05/18 05:15 Docusate Sodium (Colace) 100 mg DAILY ORAL 05/03/18 09:00 05/27/18 08:59 05/05/18 08:35 Ethambutol HCl (Myambutol) 800 mg DAILY ORAL 05/03/18 09:00 05/27/18 08:59 05/05/18 08:36 Fluconazole (Diflucan) 100 mg DAILY ORAL 05/04/18 09:00 05/11/18 08:59 05/05/18 08:37 Heparin Sodium/ Sodium Chloride (Heparin 2000 units/Ns 1000ml premix) 2,000 unit ONCE PRN IV PICC LINE PLACEMENT 05/05/18 10:00 05/05/18 23:59 Hydralazine HCl (Apresoline) 10 mg Q4H PRN IV SBP >160 05/02/18 18:18 05/28/18 18:17 Isoniazid (Inh) 300 mg DAILY ORAL 05/03/18 09:00 05/27/18 08:59 05/05/18 08:35 Levetiracetam 750 mg/Dextrose 102.5 ml @ 440 mls/hr Q12HR IV 05/02/18 21:00 05/29/18 00:59 05/05/18 10:20 Lidocaine HCl (Xylocaine 1% 30ml) 30 ml ONCE PRN INJ PICC LINE PLACEMENT 05/05/18 10:00 05/05/18 23:59 Metoprolol Tartrate (Lopressor) 50 mg Q12HR GT 05/02/18 21:00 05/28/18 20:59 05/05/18 08:36 Multivitamins Therapeutic (Therapeutic Multivitamin) 1 ea DAILY ORAL 05/03/18 09:00 05/27/18 08:59 05/05/18 08:36 Ondansetron HCl (Zofran) 4 mg Q6H PRN IVP Nausea & Vomiting 05/02/18 18:19 05/28/18 18:18 Pantoprazole (Protonix) 40 mg EVERY 12 HOURS IVP 05/02/18 21:00 05/29/18 08:59 05/05/18 08:34 Pyrazinamide (Pza) 1,000 mg DAILY ORAL 05/03/18 09:00 05/28/18 08:59 05/05/18 08:35 Pyridoxine HCl (Vitamin B6) 50 mg DAILY ORAL 05/03/18 09:00 05/27/18 08:59 05/05/18 08:36 Rifampin (Rifadin) 600 mg DAILY ORAL 05/03/18 09:00 05/27/18 08:59 05/05/18 08:35 Sennosides (Senokot) 2 tab BIDPRN PRN GT Constipation 05/02/18 18:20 05/27/18 18:19 Tamsulosin HCl (Flomax) 0.4 mg BEDTIME ORAL 05/02/18 21:00 05/27/18 20:59 05/04/18 20:40 Rahul Shen MD May 05, 2018 11:13
--- NOTE | 2018-05-05 11:16 | Diagnostic Imaging Report ---
Indications: Needs long-term IV access Technique: Procedure performed at bedside. Procedural timeout performed. Ultrasound confirms patent compressible brachial vein. Total sterile technique, including sterile probe cover and sterile gel, sterile gloves, hand hygiene, hat, mask,, sterile gown, large sterile drape, and preparation with 2% chlorhexidine utilized. Local anesthesia with 1% lidocaine. Under real-time ultrasound guidance, puncture vein using 21-gauge needle, passage 0.018 guidewire, exchange for 5 Chinese peel-away sheath. 5 Chinese Bard dual-lumen power PICC cut to 39 cm. It was inserted through the peel-away sheath. Peel-away sheath and guidewire removed. Catheter fixed to the skin. Both catheter ports aspirated and flushed. Patient tolerated procedure well, without immediate complication. Followup chest x-ray obtained, documents catheter tip position at the low superior vena cava Impression: Successful bedside placement of left arm PICC under sonographic guidance, as described above.
[2018-05-05 12:00] VITALS: BP 143/66
--- NOTE | 2018-05-05 15:13 | Diagnostic Imaging Report ---
APPROVED REPORT CPT Code: 73121 Present Symptoms Comments: BILATERAL LEGS PAIN. BILATERAL: Imaging reveals a patent deep venous system bilaterally. There is no evidence of thrombus within the femoral, popliteal or tibial segments. The greater saphenous veins are also within normal limits. Doppler indicates normal spontaneous flow within these segments.
[2018-05-05 16:00] VITALS: BP 146/71
[2018-05-05] MEDS ORDERED: Tubing IV Secondary IV ONE (17:06)
[2018-05-05] MEDS ORDERED: NS 275ml ONE (17:06)
[2018-05-05] MEDS ORDERED: D5NS 1000ml IV ONE (17:06)
--- NOTE | 2018-05-05 19:35 | Neurology Progress Note ---
Interim History Interim History Interim History Mr. Narvaez is can be aroused today. He opened his eyes and made eye contact today. He also turned his eyes and head towards the side of vocal stimulation. He blinked to threat. He however was non verbal even in Georgian. He continues to be seizure-free. He continues to be non-functional. His cardio-respiratory function is stable. Review of Systems Neuro Review of Systems Unable to obtain. Objective Physical Exam Last Vital Signs Date Time Temp Pulse Resp B/P (MAP) Pulse Ox O2 Delivery O2 Flow Rate FiO2 05/05/18 18:59 71 30 30 05/05/18 16:41 100 05/05/18 16:00 97.7 146/71 (96) 97.7 05/05/18 16:00 Mechanical Ventilator 04/28/18 19:14 Laboratory Tests Test 05/05/18 04:00 05/05/18 08:15 White Blood Count 5.1 K/UL (4.8-10.8) Red Blood Count 3.53 M/UL (4.70-6.10) L Hemoglobin 8.8 G/DL (14.2-18.0) L Hematocrit 27.0 % (42.0-52.0) L Mean Corpuscular Volume 77 FL (80-99) L Mean Corpuscular Hemoglobin 24.9 PG (27.0-31.0) L Mean Corpuscular Hemoglobin Concent 32.6 G/DL (32.0-36.0) Red Cell Distribution Width 17.7 % (11.6-14.8) H Platelet Count 237 K/UL (150-450) Mean Platelet Volume 6.5 FL (6.5-10.1) Neutrophils (%) (Auto) 68.1 % (45.0-75.0) Lymphocytes (%) (Auto) 12.2 % (20.0-45.0) L Monocytes (%) (Auto) 17.5 % (1.0-10.0) H Eosinophils (%) (Auto) 1.7 % (0.0-3.0) Basophils (%) (Auto) 0.5 % (0.0-2.0) Sodium Level 138 MMOL/L (136-145) Potassium Level 3.4 MMOL/L (3.5-5.1) L Chloride Level 105 MMOL/L (98-107) Carbon Dioxide Level 27 MMOL/L (21-32) Anion Gap 6 mmol/L (5-15) Blood Urea Nitrogen 19 mg/dL (7-18) H Creatinine 0.5 MG/DL (0.55-1.30) L Estimat Glomerular Filtration Rate mL/min (>60) Glucose Level 133 MG/DL (74-106) H Calcium Level 7.4 MG/DL (8.5-10.1) L Magnesium Level 1.7 MG/DL (1.8-2.4) L Total Bilirubin 0.4 MG/DL (0.2-1.0) Aspartate Amino Transf (AST/SGOT) 44 U/L (15-37) H Alanine Aminotransferase (ALT/SGPT) 19 U/L (12-78) Alkaline Phosphatase 288 U/L (46-116) H Total Protein 5.4 G/DL (6.4-8.2) L Albumin 1.3 G/DL (3.4-5.0) L Globulin 4.1 g/dL Albumin/Globulin Ratio 0.3 (1.0-2.7) L Urine Color Yellow Urine Appearance Clear Urine pH 7 (4.5-8.0) Urine Specific [place] 1.005 (1.005-1.035) Urine Protein Negative (NEGATIVE) Urine Glucose (UA) Negative (NEGATIVE) Urine Ketones Negative (NEGATIVE) Urine Blood Negative (NEGATIVE) Urine Nitrite Negative (NEGATIVE) Urine Bilirubin Negative (NEGATIVE) Urine Urobilinogen 4 MG/DL (0.0-1.0) H Urine Leukocyte Esterase 1+ (NEGATIVE) H Urine RBC 0 /HPF (0 - 0) Urine WBC 2-4 /HPF (0 - 0) Urine Squamous Epithelial Cells Occasional /LPF Urine Bacteria Occasional /HPF (NONE) Urine Yeast Occasional /HPF (NONE) H Neurologic Exam Objective PHYSICAL EXAMINATION: GENERAL: He is a well-developed, ill-looking black gentleman, lying in bed, in no acute distress. HEAD: Normocephalic and atraumatic. EENT: Examination benign. NECK: No neck rigidity was observed. NEUROLOGICAL EXAMINATION: MENTAL STATUS EXAMINATION: He could be be aroused. He opened his eyes and made eye contact. He also turned his eyes and head towards the side of vocal stimulation. He blinked to threat. He however was non verbal even in [place]ian. SPEECH: Could not be tested. LANGUAGE: Could not be tested. CRANIAL NERVE EXAMINATION: II: He did blink to threat. III, IV & : External ocular movements were present. The pupils were 3 mm in diameter, equal, round, regular, and reactive sluggishly to light. V & VII: The corneal reflexes were present bilaterally. However, the right- sided reflex was significantly diminished compared to the left. VIII: He was able to hear and had no nystagmus. IX & X: Gag reflex was suppressed. XI: The sternocleidomastoids and trapezii functioned minimally. XII: The tongue was in the midline. MOTOR SYSTEM: The tone was increased in all four extremities with spasticity more marked on the right than on the left. Examination of muscle mass revealed generalized muscle wasting, again more marked on the right than on the left. Examination of power was impossible to perform on individual muscle groups. However, he did move all four extremities on deep pain with possibly right greater than left-sided weakness. SENSORY EXAMINATION: He responded appropriately to deep pain with less vigorous responses on the right side compared to the left. REFLEXES: Trace+ and bilaterally symmetrical at the biceps, triceps, brachioradialis. 0 at both knees and ankles. The plantar responses were extensor bilaterally. COORDINATION, STANCE & GAIT: Could not be tested. Impression/Recommendations Diagnostic Impression 1. Mr. Sagar Narvaez is a 72-year-old, [place] gentleman, of unknown handedness, who does have a past history of cerebrovascular disease with a prior stroke, pulmonary tuberculosis, chronic respiratory failure for which he has tracheostomy, and dysphagia for which he has a gastrostomy; who lives in [facility] where he was noted to have an alteration in his mental state in the form of increased lethargy. He was thus brought into the [facility] emergency room and following admission, he apparently spiked a fever to 103 degrees Fahrenheit followed by multiple seizures. He was cooled down, given Ativan and started on Keppra and has been seizure-free since then. 2. He can be aroused today. He opened his eyes and made eye contact today. He also turned his eyes and head towards the side of vocal stimulation. He blinked to threat. He however was non verbal even in Georgian. He continues to be seizure -free. He continues to be non-functional. His cardio-respiratory function is stable. 3. On neurological examination, at this time, he can be aroused with vocal stimulation. He however is unable to communicate. His corneal reflex is diminished on the right side compared to the left. 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 In addition, he responds to deep pain, less on the right than on the left. His deep tendon reflexes are globally diminished and his plantar responses are extensor bilaterally. 4. Laboratory data on my initial evaluation revealed that his WBC count is creeping up from 4.4 to 9.5. He is significantly anemic with a hemoglobin of 8.8 G. His chemistry panel reveals that his bilirubin is elevated to 1.1. His alkaline phosphatase is elevated to 367, his AST is elevated to 52. His albumin is low at 1.9. His arterial blood gas reveals a pCO2 of 29 and a pO2 of 59 with a pH of 7.43. His urinalysis reveals 2+ leukocyte esterase with 2-4 RBCs and 2-4 WBCs per high-power field. 5. The EEG done on 04/27/18 revealed a moderately severe encephalopathy and left > right hemispheric dysfunction. No inter-ictal discharges were seen. 6. The CT of the brain done on 04/30/18 revealed multiple old bilateral cerebral infarcts involving the left > right brain. 7. 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 8. His mental state has finally improved today. Recommendations 1. Continue present management. 2. Continue Keppra 750 mg q.12 hours. 3. Observe. Mercedes Coelho M.D., M.S.P.Rosa M. MERCEDES COELHO May 05, 2018 19:35
[2018-05-05 20:00] VITALS: BP 153/75
[2018-05-05] MEDS: Dyna-Hex 2% Top Sol 2oz TOPIC SCH (20:11)
[2018-05-05] MEDS: Tamsulosin 0.4mg cap ORAL SCH (20:59)
[2018-05-05] MEDS: Artificial Tears 1.4% Op Soln BOTH EYES PRN (21:03)
--- NOTE | 2018-05-05 21:28 | General Progress Note ---
Assessment/Plan Assessment/Plan Assessment - suspected early cirrhosis based on imaging - hepatitis A/B/C negative - TRISTAN negative but F-Actin (+) - ? significance - UGIB, resolved - Anemia - Resp failure - s/p PEG and Trach Recommendations - not good candidate for liver biopsy or for sterids - would follow conservatively - continue TF Subjective Allergies: Coded Allergies: No Known Allergies (Unverified , 01/27/17) Subjective No events overnight Tolerating TF non communicative Objective Last 24 Hour Vital Signs Date Time Temp Pulse Resp B/P (MAP) Pulse Ox O2 Delivery O2 Flow Rate FiO2 05/05/18 20:59 73 153/75 05/05/18 20:50 73 29 30 05/05/18 20:00 98.1 68 28 153/75 (101) 100 98.1 05/05/18 18:59 71 30 30 05/05/18 17:11 30 05/05/18 16:44 62 16 30 05/05/18 16:41 100 05/05/18 16:00 60 05/05/18 16:00 97.7 62 28 146/71 (96) 100 97.7 05/05/18 16:00 Mechanical Ventilator 05/05/18 15:53 30 05/05/18 15:36 68 28 30 05/05/18 12:39 60 23 30 05/05/18 12:00 30 05/05/18 12:00 98.1 56 21 143/66 (91) 100 98.1 05/05/18 12:00 Mechanical Ventilator 05/05/18 12:00 55 05/05/18 11:00 56 16 30 05/05/18 10:15 66 39 30 05/05/18 08:36 68 138/72 05/05/18 08:22 97.5 05/05/18 08:00 Mechanical Ventilator 05/05/18 08:00 30 05/05/18 08:00 68 05/05/18 08:00 97.5 68 26 138/72 (94) 100 97.5 05/05/18 07:34 70 24 30 05/05/18 06:41 100.6 05/05/18 06:10 100.6 100.6 05/05/18 05:14 64 24 30 05/05/18 04:00 Mechanical Ventilator 05/05/18 04:00 99.0 75 20 131/63 (85) 100 99.0 05/05/18 04:00 73 05/05/18 04:00 30 05/05/18 03:11 69 26 30 05/05/18 01:37 62 24 30 05/05/18 00:00 30 05/05/18 00:00 66 05/05/18 00:00 98.6 66 20 125/66 (85) 100 98.6 05/05/18 00:00 Mechanical Ventilator 05/04/18 23:25 69 23 30 05/04/18 21:51 68 24 30 Intake and Output 05/04/18 05/05/18 19:00 07:00 Intake Total 1597.5 ml 1597.5 ml Output Total 1800 ml 3200 ml Balance -202.5 ml -1602.5 ml Free Water 210 ml IV Total 607.5 ml 877.5 ml Tube Feeding 780 ml 720 ml Output Urine Total 1800 ml 3200 ml # Bowel Movements 4 2 Laboratory Tests 05/05/18 04:00: White Blood Count 5.1, Red Blood Count 3.53L, Hemoglobin 8.8L, Hematocrit 27.0L , Mean Corpuscular Volume 77L, Mean Corpuscular Hemoglobin 24.9L, Mean Corpuscular Hemoglobin Concent 32.6, Red Cell Distribution Width 17.7H, Platelet Count 237, Mean Platelet Volume 6.5, Neutrophils (%) (Auto) 68.1, Lymphocytes (%) (Auto) 12.2L, Monocytes (%) (Auto) 17.5H, Eosinophils (%) (Auto ) 1.7, Basophils (%) (Auto) 0.5, Sodium Level 138, Potassium Level 3.4L, Chloride Level 105, Carbon Dioxide Level 27, Anion Gap 6, Blood Urea Nitrogen 19H, Creatinine 0.5L, Estimat Glomerular Filtration Rate , Glucose Level 133H, Calcium Level 7.4L, Magnesium Level 1.7L, Total Bilirubin 0.4, Aspartate Amino Transf (AST/SGOT) 44H, Alanine Aminotransferase (ALT/SGPT) 19, Alkaline Phosphatase 288H, Total Protein 5.4L, Albumin 1.3L, Globulin 4.1, Albumin/ Globulin Ratio 0.3L 05/05/18 08:15: Urine Color Yellow, Urine Appearance Clear, Urine pH 7, Urine Specific [place] 1.005, Urine Protein Negative, Urine Glucose (UA) Negative, Urine Ketones Negative, Urine Blood Negative, Urine Nitrite Negative, Urine Bilirubin Negative , Urine Urobilinogen 4H, Urine Leukocyte Esterase 1+H, Urine RBC 0, Urine WBC 2- 4, Urine Squamous Epithelial Cells Occasional, Urine Bacteria Occasional, Urine Yeast OccasionalH Height (Feet): 5 Height (Inches): 7.00 Weight (Pounds): 140 Objective Thin AA man non communicative NCAT (+) trach CTA RRR soft ND NT, (+) GT no edema Oli Amaya MD May 05, 2018 21:28
[2018-05-06] VITALS: BP 150/70
[2018-05-06] MEDS: D5NS 1,000 ML IV SCH ×2 (01:11→21:39)
[2018-05-06 04:00] VITALS: BP 120/55
--- NOTE | 2018-05-06 04:45 | Progress Note ---
DATE: 05/05/2018 CARDIOLOGY PROGRESS NOTE SUBJECTIVE: The patient is febrile, 100.6 max. Occasional tachypnea, on ventilator support. OBJECTIVE: VITAL SIGNS: Blood pressure 138/72, heart rate 68, and respiratory rate 26. LUNGS: Moderate rhonchi. HEART: Regular rhythm and rate. Normal S1 and S2. ABDOMEN: G-tube intact. Soft. EXTREMITIES: No edema. LABORATORY DATA: White count 5.1 and hemoglobin 8.8. Urinalysis with 2 to 4 white cells. Magnesium 1.7. Potassium 3.4. Albumin 1.3. IMPRESSION: 1. Status post shock due to sepsis. 2. Respiratory failure with tracheostomy. 3. Pulmonary tuberculosis. 4. Hypomagnesemia. 5. Hypokalemia. PLAN: 1. Remains critical and guarded. 2. . 3. Antimicrobials. 4. Ventilator support. 5. IV magnesium. 6. Oral potassium. 7. Periodic diuresis. 8. Trend natriuretic peptide assay. Jones Arauz M.D. DR: RUSLAN JOB#: [id number] CC:
[2018-05-06 07:30] LABS: BASOPHILS % (AUTO) 0.7 % (0.0-2.0); EOSINOPHILS % (AUTO) 1.7 % (0.0-3.0); HEMOGLOBIN 8.4 G/DL (14.2-18.0); LYMPHOCYTES % (AUTO) 16.7 % (20.0-45.0); MEAN CORPUSCULAR VOLUME 77 FL (80-99); MONOCYTES % (AUTO) 15.9 % (1.0-10.0); PLATELET COUNT 232 K/UL (150-450); RED BLOOD COUNT 3.52 M/UL (4.70-6.10); RED CELL DISTRIBUTION WIDTH 17.8 % (11.6-14.8); WHITE BLOOD COUNT 4.8 K/UL (4.8-10.8)
[2018-05-06 07:38] LABS: ALANINE AMINOTRANSFERASE 24 U/L (12-78); ALBUMIN 1.3 G/DL (3.4-5.0); ALBUMIN/GLOBULIN RATIO 0.3 (1.0-2.7); ALKALINE PHOSPHATASE 305 U/L (46-116); ANION GAP 5 mmol/L (5-15); ASPARTATE AMINO TRANSFERASE 67 U/L (15-37); BILIRUBIN,TOTAL 0.4 MG/DL (0.2-1.0); BLOOD UREA NITROGEN 19 mg/dL (7-18); CALCIUM 7.9 MG/DL (8.5-10.1); CARBON DIOXIDE 27 MMOL/L (21-32); CHLORIDE 105 MMOL/L (98-107); CREATININE 0.5 MG/DL (0.55-1.30); SODIUM 137 MMOL/L (136-145)
[2018-05-06 08:00] VITALS: BP 142/71
[2018-05-06] MEDS: Pyridoxine 50mg tab ORAL SCH (08:29)
[2018-05-06] MEDS: Isoniazid 300mg tab ORAL SCH (08:29)
[2018-05-06] MEDS: Docusate 100mg/10ml Liq ORAL SCH (08:29)
[2018-05-06] MEDS: cefTRIAXone 1 GM in D5W 55 ML IVPB SCH (08:29)
[2018-05-06] MEDS: Multivitamin w/Minerals tab ORAL SCH (08:30)
[2018-05-06] MEDS: Fluconazole 100mg tab ORAL SCH (08:30)
[2018-05-06] MEDS: Metoprolol Tartrate 50mg tab GT SCH ×2 (08:31→20:11)
--- NOTE | 2018-05-06 08:31 | Pulmonology Progress Note ---
Assessment/Plan Assessment/Plan IMPRESSION respiratory failure possible sepsis chronic encephalopathy trach debility hypoxemia htn metabolic acidosis ho hypertension ho seizures abnormal imaging PLAN exam noted and reviewed; stable overall IV antibiotics reviewed and cultures noted respiratory care on full support vent support and start wean in am elevate head and monitor supportive care as outlined monitor acid base and intervene suction PRN periodic imaging follow clinically for change and monitor for clearing and improvement oxygen as needed monitor hemodynamics and adjust prognosis guarded at present fully dependent medications/laboratory data/nursing notes reviewed in detail note reviewed and edited care discussed with RN and RT Subjective ROS Limited/Unobtainable: Yes Allergies: Coded Allergies: No Known Allergies (Unverified , 01/27/17) Subjective care reviewed on vent and full support as prior in [place] comfortable hemodynamics noted Objective Last 24 Hour Vital Signs Date Time Temp Pulse Resp B/P (MAP) Pulse Ox O2 Delivery O2 Flow Rate FiO2 05/06/18 08:00 98.8 74 25 142/71 (94) 98 98.8 05/06/18 07:52 75 05/06/18 07:01 75 23 30 05/06/18 05:21 72 22 30 05/06/18 04:05 74 05/06/18 04:00 98.2 62 16 120/55 (76) 100 98.2 05/06/18 04:00 30 05/06/18 04:00 Mechanical Ventilator 05/06/18 03:25 76 23 30 05/06/18 01:27 72 32 30 05/06/18 00:00 98.1 67 25 150/70 (96) 100 98.1 05/06/18 00:00 65 05/06/18 00:00 30 05/06/18 00:00 Mechanical Ventilator 05/05/18 22:40 80 25 30 05/05/18 20:59 73 153/75 05/05/18 20:50 73 29 30 05/05/18 20:00 Mechanical Ventilator 05/05/18 20:00 98.1 68 28 153/75 (101) 100 98.1 05/05/18 19:53 69 05/05/18 18:59 71 30 30 05/05/18 17:11 30 05/05/18 16:44 62 16 30 05/05/18 16:41 100 05/05/18 16:00 60 05/05/18 16:00 97.7 62 28 146/71 (96) 100 97.7 05/05/18 16:00 Mechanical Ventilator 05/05/18 15:53 30 05/05/18 15:36 68 28 30 05/05/18 12:39 60 23 30 05/05/18 12:00 30 05/05/18 12:00 98.1 56 21 143/66 (91) 100 98.1 05/05/18 12:00 Mechanical Ventilator 05/05/18 12:00 55 05/05/18 11:00 56 16 30 05/05/18 10:15 66 39 30 05/05/18 08:36 68 138/72 Intake and Output 05/05/18 05/06/18 19:00 07:00 Intake Total 1627.5 ml 1497.5 ml Output Total 3500 ml 1200 ml Balance -1872.5 ml 297.5 ml Free Water 150 ml IV Total 757.5 ml 837.5 ml Tube Feeding 720 ml 660 ml Output Urine Total 3500 ml 1200 ml # Bowel Movements 4 Objective WDWN NAD poorly responsive moderate breath sounds bilaterally without rhonchi or wheeze [id number] without MRG NABS nontender no HSM; gt no CCE cachectic poor response to pain skin noted comfortable reviewed and edited Laboratory Tests 05/06/18 05:00: White Blood Count 4.8, Red Blood Count 3.52L, Hemoglobin 8.4L, Hematocrit 27.0L , Mean Corpuscular Volume 77L, Mean Corpuscular Hemoglobin 23.8L, Mean Corpuscular Hemoglobin Concent 31.1L, Red Cell Distribution Width 17.8H, Platelet Count 232, Mean Platelet Volume 5.5L, Neutrophils (%) (Auto) 65.0, Lymphocytes (%) (Auto) 16.7L, Monocytes (%) (Auto) 15.9H, Eosinophils (%) (Auto ) 1.7, Basophils (%) (Auto) 0.7, Sodium Level 137, Potassium Level 4.0, Chloride Level 105, Carbon Dioxide Level 27, Anion Gap 5, Blood Urea Nitrogen 19H, Creatinine 0.5L, Estimat Glomerular Filtration Rate , Glucose Level 129H, Calcium Level 7.9L, Magnesium Level 2.0, Total Bilirubin 0.4, Aspartate Amino Transf (AST/SGOT) 67H, Alanine Aminotransferase (ALT/SGPT) 24, Alkaline Phosphatase 305H, Pro-B-Type Natriuretic Peptide 1756H, Total Protein 5.2L, Albumin 1.3L, Globulin 3.9, Albumin/Globulin Ratio 0.3L Current Medications Medications (Trade) Dose Ordered Sig/Iram Route PRN Reason Start Time Stop Time Status Last Admin Dose Admin Acetaminophen (Tylenol) 650 mg Q4H PRN ORAL Fever/Headache/Mild Pain 05/02/18 18:30 05/26/18 18:29 05/05/18 06:41 Artificial Tears (Akwa-Tears) 2 drop FIVE TIMES A DAY PRN BOTH EYES Dry Eyes 05/02/18 19:00 05/31/18 11:44 05/05/18 21:03 Atorvastatin Calcium (Lipitor) 10 mg BEDTIME GT 05/02/18 21:00 05/28/18 20:59 05/05/18 20:59 Ceftriaxone Sodium 1 gm/ Dextrose 55 ml @ 110 mls/hr DAILY IVPB 05/03/18 09:00 05/09/18 14:59 05/05/18 08:34 Chlorhexidine Gluconate (Letha-Hex 2%) 1 applic DAILY@2000 TOPIC 05/02/18 20:00 05/31/18 19:59 05/05/18 20:11 Clonidine HCl (Catapres Tab) 0.1 mg Q4H PRN ORAL SBP >160 05/02/18 19:00 05/28/18 10:59 Dextrose/Sodium Chloride 1,000 ml @ 50 mls/hr Q20H IV 05/02/18 17:30 05/29/18 21:21 05/06/18 01:11 Docusate Sodium (Colace) 100 mg DAILY ORAL 05/03/18 09:00 05/27/18 08:59 05/05/18 08:35 Ethambutol HCl (Myambutol) 800 mg DAILY ORAL 05/03/18 09:00 05/27/18 08:59 05/05/18 08:36 Fluconazole (Diflucan) 100 mg DAILY ORAL 05/04/18 09:00 05/11/18 08:59 05/05/18 08:37 Hydralazine HCl (Apresoline) 10 mg Q4H PRN IV SBP >160 05/02/18 18:18 05/28/18 18:17 Isoniazid (Inh) 300 mg DAILY ORAL 05/03/18 09:00 05/27/18 08:59 05/05/18 08:35 Lansoprazole (Prevacid) 30 mg Q12HR ORAL 05/05/18 21:00 06/04/18 20:59 05/05/18 20:59 Levetiracetam 750 mg/Dextrose 102.5 ml @ 440 mls/hr Q12HR IV 05/02/18 21:00 05/29/18 00:59 05/05/18 20:58 Metoprolol Tartrate (Lopressor) 50 mg Q12HR GT 05/02/18 21:00 05/28/18 20:59 05/05/18 20:59 Multivitamins Therapeutic (Therapeutic Multivitamin) 1 ea DAILY ORAL 05/03/18 09:00 05/27/18 08:59 05/05/18 08:36 Ondansetron HCl (Zofran) 4 mg Q6H PRN IVP Nausea & Vomiting 05/02/18 18:19 05/28/18 18:18 Pyrazinamide (Pza) 1,000 mg DAILY ORAL 05/03/18 09:00 05/28/18 08:59 05/05/18 08:35 Pyridoxine HCl (Vitamin B6) 50 mg DAILY ORAL 05/03/18 09:00 05/27/18 08:59 05/05/18 08:36 Rifampin (Rifadin) 600 mg DAILY ORAL 05/03/18 09:00 05/27/18 08:59 05/05/18 08:35 Sennosides (Senokot) 2 tab BIDPRN PRN GT Constipation 05/02/18 18:20 05/27/18 18:19 Tamsulosin HCl (Flomax) 0.4 mg BEDTIME ORAL 05/02/18 21:00 05/27/18 20:59 05/05/18 20:59 Nakul Cisse MD May 06, 2018 08:31
[2018-05-06] MEDS: Artificial Tears 1.4% Op Soln BOTH EYES PRN (08:32)
[2018-05-06] MEDS: levETIRAcetam 750 MG in D5W 95 ML IV SCH ×2 (09:19→21:39)
--- NOTE | 2018-05-06 09:57 | Diagnostic Imaging Report ---
Indication: Dyspnea Technique: One view of the chest Comparison: Post PICC radiograph 05/05/2018 Findings: Consolidation of the left lung base appears similar to the previous study. There may be some infiltrate in the right infrahilar region, stable if real. There appears to be decreased pleural thickening or fluid. Left arm PICC is again demonstrated. Impression: Unchanged, over one day, findings as above.
--- NOTE | 2018-05-06 11:12 | Infectious Diseases Prog Note ---
Assessment/Plan Assessment/Plan antibiotics : ceftriaxone, fluconazole, isoniazid, rifampin, pyrazinamide, ethambutol, pyridoxine A 1. pulmonary TB 2. e.coli pneumonia 3. fungal UTI 4. respiratory failure 5. encephalopathy P 1. continue isoniazid, rifampin, pyrazinamide, ethambutol, pyridoxine 2. continue ceftriaxone 5 more days 3. continue fluconazole 3 more days 4. will follow up cultures Subjective ROS Limited/Unobtainable: Yes Allergies: Coded Allergies: No Known Allergies (Unverified , 01/27/17) Objective Vital Signs Last 24 Hour Vital Signs Date Time Temp Pulse Resp B/P (MAP) Pulse Ox O2 Delivery O2 Flow Rate FiO2 05/06/18 10:54 67 32 30 05/06/18 10:52 100 05/06/18 10:48 30 05/06/18 09:30 71 26 30 05/06/18 08:31 74 142/71 05/06/18 08:00 30 05/06/18 08:00 98.8 74 25 142/71 (94) 98 98.8 05/06/18 08:00 Mechanical Ventilator 05/06/18 07:52 75 05/06/18 07:01 75 23 30 05/06/18 05:21 72 22 30 05/06/18 04:05 74 05/06/18 04:00 98.2 62 16 120/55 (76) 100 98.2 05/06/18 04:00 30 05/06/18 04:00 Mechanical Ventilator 05/06/18 03:25 76 23 30 05/06/18 01:27 72 32 30 05/06/18 00:00 98.1 67 25 150/70 (96) 100 98.1 05/06/18 00:00 65 05/06/18 00:00 30 05/06/18 00:00 Mechanical Ventilator 05/05/18 22:40 80 25 30 05/05/18 20:59 73 153/75 05/05/18 20:50 73 29 30 05/05/18 20:00 Mechanical Ventilator 05/05/18 20:00 98.1 68 28 153/75 (101) 100 98.1 05/05/18 19:53 69 05/05/18 18:59 71 30 30 05/05/18 17:11 30 05/05/18 16:44 62 16 30 05/05/18 16:41 100 05/05/18 16:00 60 05/05/18 16:00 97.7 62 28 146/71 (96) 100 97.7 05/05/18 16:00 Mechanical Ventilator 05/05/18 15:53 30 05/05/18 15:36 68 28 30 05/05/18 12:39 60 23 30 05/05/18 12:00 30 05/05/18 12:00 98.1 56 21 143/66 (91) 100 98.1 05/05/18 12:00 Mechanical Ventilator 05/05/18 12:00 55 Height (Feet): 5 Height (Inches): 7.00 Weight (Pounds): 142 HEENT: status post trach Respiratory/Chest: lungs clear Cardiovascular: normal rate, regular rhythm, no gallop/murmur Abdomen: soft, non tender, other - GT Extremities: no edema, other - left arm PICC Microbiology Date/Time Source Procedure Growth Status 05/05/18 08:15 Indwelling Cath Urine Culture - Preliminary Resulted Laboratory Tests Test 05/06/18 05:00 White Blood Count 4.8 K/UL (4.8-10.8) Red Blood Count 3.52 M/UL (4.70-6.10) L Hemoglobin 8.4 G/DL (14.2-18.0) L Hematocrit 27.0 % (42.0-52.0) L Mean Corpuscular Volume 77 FL (80-99) L Mean Corpuscular Hemoglobin 23.8 PG (27.0-31.0) L Mean Corpuscular Hemoglobin Concent 31.1 G/DL (32.0-36.0) L Red Cell Distribution Width 17.8 % (11.6-14.8) H Platelet Count 232 K/UL (150-450) Mean Platelet Volume 5.5 FL (6.5-10.1) L Neutrophils (%) (Auto) 65.0 % (45.0-75.0) Lymphocytes (%) (Auto) 16.7 % (20.0-45.0) L Monocytes (%) (Auto) 15.9 % (1.0-10.0) H Eosinophils (%) (Auto) 1.7 % (0.0-3.0) Basophils (%) (Auto) 0.7 % (0.0-2.0) Sodium Level 137 MMOL/L (136-145) Potassium Level 4.0 MMOL/L (3.5-5.1) Chloride Level 105 MMOL/L (98-107) Carbon Dioxide Level 27 MMOL/L (21-32) Anion Gap 5 mmol/L (5-15) Blood Urea Nitrogen 19 mg/dL (7-18) H Creatinine 0.5 MG/DL (0.55-1.30) L Estimat Glomerular Filtration Rate mL/min (>60) Glucose Level 129 MG/DL (74-106) H Calcium Level 7.9 MG/DL (8.5-10.1) L Magnesium Level 2.0 MG/DL (1.8-2.4) Total Bilirubin 0.4 MG/DL (0.2-1.0) Aspartate Amino Transf (AST/SGOT) 67 U/L (15-37) H Alanine Aminotransferase (ALT/SGPT) 24 U/L (12-78) Alkaline Phosphatase 305 U/L (46-116) H Pro-B-Type Natriuretic Peptide 1756 pg/mL (0-125) H Total Protein 5.2 G/DL (6.4-8.2) L Albumin 1.3 G/DL (3.4-5.0) L Globulin 3.9 g/dL Albumin/Globulin Ratio 0.3 (1.0-2.7) L Current Medications Medications (Trade) Dose Ordered Sig/Iram Route PRN Reason Start Time Stop Time Status Last Admin Dose Admin Acetaminophen (Tylenol) 650 mg Q4H PRN ORAL Fever/Headache/Mild Pain 05/02/18 18:30 05/26/18 18:29 05/05/18 06:41 Artificial Tears (Akwa-Tears) 2 drop FIVE TIMES A DAY PRN BOTH EYES Dry Eyes 05/02/18 19:00 05/31/18 11:44 05/06/18 08:32 Atorvastatin Calcium (Lipitor) 10 mg BEDTIME GT 05/02/18 21:00 05/28/18 20:59 05/05/18 20:59 Ceftriaxone Sodium 1 gm/ Dextrose 55 ml @ 110 mls/hr DAILY IVPB 05/03/18 09:00 05/09/18 14:59 05/06/18 08:29 Chlorhexidine Gluconate (Letha-Hex 2%) 1 applic DAILY@2000 TOPIC 05/02/18 20:00 05/31/18 19:59 05/05/18 20:11 Clonidine HCl (Catapres Tab) 0.1 mg Q4H PRN ORAL SBP >160 05/02/18 19:00 05/28/18 10:59 Dextrose/Sodium Chloride 1,000 ml @ 50 mls/hr Q20H IV 05/02/18 17:30 05/29/18 21:21 05/06/18 01:11 Docusate Sodium (Colace) 100 mg DAILY ORAL 05/03/18 09:00 05/27/18 08:59 05/06/18 08:29 Ethambutol HCl (Myambutol) 800 mg DAILY ORAL 05/03/18 09:00 05/27/18 08:59 05/06/18 08:32 Fluconazole (Diflucan) 100 mg DAILY ORAL 05/04/18 09:00 05/11/18 08:59 05/06/18 08:30 Hydralazine HCl (Apresoline) 10 mg Q4H PRN IV SBP >160 05/02/18 18:18 05/28/18 18:17 Isoniazid (Inh) 300 mg DAILY ORAL 05/03/18 09:00 05/27/18 08:59 05/06/18 08:29 Lansoprazole (Prevacid) 30 mg Q12HR ORAL 05/05/18 21:00 06/04/18 20:59 05/06/18 08:30 Levetiracetam 750 mg/Dextrose 102.5 ml @ 440 mls/hr Q12HR IV 05/02/18 21:00 05/29/18 00:59 05/06/18 09:19 Metoprolol Tartrate (Lopressor) 50 mg Q12HR GT 05/02/18 21:00 05/28/18 20:59 05/06/18 08:31 Multivitamins Therapeutic (Therapeutic Multivitamin) 1 ea DAILY ORAL 05/03/18 09:00 05/27/18 08:59 05/06/18 08:30 Ondansetron HCl (Zofran) 4 mg Q6H PRN IVP Nausea & Vomiting 05/02/18 18:19 05/28/18 18:18 Pyrazinamide (Pza) 1,000 mg DAILY ORAL 05/03/18 09:00 05/28/18 08:59 05/06/18 08:30 Pyridoxine HCl (Vitamin B6) 50 mg DAILY ORAL 05/03/18 09:00 05/27/18 08:59 05/06/18 08:29 Rifampin (Rifadin) 600 mg DAILY ORAL 05/03/18 09:00 05/27/18 08:59 05/06/18 08:31 Sennosides (Senokot) 2 tab BIDPRN PRN GT Constipation 05/02/18 18:20 05/27/18 18:19 Tamsulosin HCl (Flomax) 0.4 mg BEDTIME ORAL 05/02/18 21:00 05/27/18 20:59 05/05/18 20:59 RENÉE RICHARDSON May 06, 2018 11:12
[2018-05-06 12:00] VITALS: BP 146/74
--- NOTE | 2018-05-06 15:50 | General Progress Note ---
Assessment/Plan Problem List: (1) Status epilepticus ICD Codes: G40.901 - Epilepsy, unspecified, not intractable, with status epilepticus SNOMED: 189431088 (2) Encephalopathy acute ICD Codes: G93.40 - Encephalopathy, unspecified SNOMED: 41104904, 554043876 (3) Probable sepsis ICD Codes: A41.9 - Sepsis, unspecified organism SNOMED: 260062354 (4) Dementia ICD Codes: F03.90 - Unspecified dementia without behavioral disturbance SNOMED: 35862922 (5) Encephalopathy ICD Codes: G93.40 - Encephalopathy, unspecified SNOMED: 46209829 (6) Sepsis ICD Codes: A41.9 - Sepsis, unspecified organism SNOMED: 16108548 (7) Pulmonary tuberculosis ICD Codes: A15.0 - Tuberculosis of lung SNOMED: 634428230 (8) Dehydration ICD Codes: E86.0 - Dehydration SNOMED: 35135438 (9) Altered level of consciousness ICD Codes: R40.4 - Transient alteration of awareness SNOMED: 5293631 Status: stable, progressing Assessment/Plan vent support resp rx wean as able PPI rx abx per ID 4 tb druga gt feeds wound care prognosis poor Subjective Allergies: Coded Allergies: No Known Allergies (Unverified , 01/27/17) Subjective no events. stable. no fevers or chills. on iv abx. 4 tb drugs. remains poorly responsive. weaning attempted daily. Objective Last 24 Hour Vital Signs Date Time Temp Pulse Resp B/P (MAP) Pulse Ox O2 Delivery O2 Flow Rate FiO2 05/06/18 15:23 68 22 30 05/06/18 12:50 66 24 30 05/06/18 12:00 Mechanical Ventilator 05/06/18 12:00 30 05/06/18 12:00 98.7 74 36 146/74 (98) 100 98.7 05/06/18 12:00 79 05/06/18 10:54 67 32 30 05/06/18 10:52 100 05/06/18 10:48 30 05/06/18 09:30 71 26 30 05/06/18 08:31 74 142/71 05/06/18 08:00 30 05/06/18 08:00 98.8 74 25 142/71 (94) 98 98.8 05/06/18 08:00 Mechanical Ventilator 05/06/18 07:52 75 05/06/18 07:01 75 23 30 05/06/18 05:21 72 22 30 05/06/18 04:05 74 05/06/18 04:00 98.2 62 16 120/55 (76) 100 98.2 05/06/18 04:00 30 05/06/18 04:00 Mechanical Ventilator 05/06/18 03:25 76 23 30 05/06/18 01:27 72 32 30 05/06/18 00:00 98.1 67 25 150/70 (96) 100 98.1 05/06/18 00:00 65 05/06/18 00:00 30 05/06/18 00:00 Mechanical Ventilator 05/05/18 22:40 80 25 30 05/05/18 20:59 73 153/75 05/05/18 20:50 73 29 30 05/05/18 20:00 Mechanical Ventilator 05/05/18 20:00 98.1 68 28 153/75 (101) 100 98.1 05/05/18 19:53 69 05/05/18 18:59 71 30 30 05/05/18 17:11 30 05/05/18 16:44 62 16 30 05/05/18 16:41 100 05/05/18 16:00 60 05/05/18 16:00 97.7 62 28 146/71 (96) 100 97.7 05/05/18 16:00 Mechanical Ventilator 05/05/18 15:53 30 Intake and Output 05/05/18 05/06/18 19:00 07:00 Intake Total 1627.5 ml 1547.5 ml Output Total 3500 ml 1200 ml Balance -1872.5 ml 347.5 ml Free Water 150 ml IV Total 757.5 ml 887.5 ml Tube Feeding 720 ml 660 ml Output Urine Total 3500 ml 1200 ml # Bowel Movements 4 Laboratory Tests 05/06/18 05:00: White Blood Count 4.8, Red Blood Count 3.52L, Hemoglobin 8.4L, Hematocrit 27.0L , Mean Corpuscular Volume 77L, Mean Corpuscular Hemoglobin 23.8L, Mean Corpuscular Hemoglobin Concent 31.1L, Red Cell Distribution Width 17.8H, Platelet Count 232, Mean Platelet Volume 5.5L, Neutrophils (%) (Auto) 65.0, Lymphocytes (%) (Auto) 16.7L, Monocytes (%) (Auto) 15.9H, Eosinophils (%) (Auto ) 1.7, Basophils (%) (Auto) 0.7, Sodium Level 137, Potassium Level 4.0, Chloride Level 105, Carbon Dioxide Level 27, Anion Gap 5, Blood Urea Nitrogen 19H, Creatinine 0.5L, Estimat Glomerular Filtration Rate , Glucose Level 129H, Calcium Level 7.9L, Magnesium Level 2.0, Total Bilirubin 0.4, Aspartate Amino Transf (AST/SGOT) 67H, Alanine Aminotransferase (ALT/SGPT) 24, Alkaline Phosphatase 305H, Pro-B-Type Natriuretic Peptide 1756H, Total Protein 5.2L, Albumin 1.3L, Globulin 3.9, Albumin/Globulin Ratio 0.3L Height (Feet): 5 Height (Inches): 7.00 Weight (Pounds): 142 Objective General Appearance: WD/WN, cachetic, thin Neck: supple Cardiovascular: tachycardia Respiratory/Chest: rhonchi - bilaterally Abdomen: normal bowel sounds, non tender, soft, no organomegaly Edema: no edema noted Arm (L), no edema noted Arm (R), no edema noted Leg (L), no edema noted Leg (R), no edema noted Pedal (L), no edema noted Pedal (R), no edema noted Generalized Jarrod Vásquez MD May 06, 2018 15:50
[2018-05-06 16:00] VITALS: BP 128/62
--- NOTE | 2018-05-06 17:25 | Cardiology Report ---
APPROVED REPORT EXAM: Two-dimensional and M-mode echocardiogram with Doppler and color Doppler. INDICATION ACUTE MYOCARD INFARCTION M-Mode DIMENSIONS IVSd1.6 (0.7-1.1cm)Left Atrium (MM)3.2 (1.6-4.0cm) LVDd4.8 (3.5-5.6cm)Aortic Root3.6 (2.0-3.7cm) PWd1.8 (0.7-1.1cm)Aortic Cusp Exc.1.6 (1.5-2.0cm) IVSs2.2 cm LVDs2.7 (2.5-4.0cm) PWs1.9 cm Normal left ventricular chamber size, hyper dynamic systolic function and wall motion to extent visualized. Left ventricular ejection fraction estimated to be 70-75 %. No evidence of left ventricular hypertrophy . Mild posterior pericardial effusion. All other chamber sizes are within normal limits. Focal aortic valve sclerosis with normal cusp excursion. Thickened mitral valve leaflets with normal excursion. Mitral annulus and aortic root calcification. Pulmonic valve not well visualized. Normal tricuspid valve structure. IVC dilated at 2.2 cm without physiologic collapse suggestive of increased RA pressure. A color flow and spectral Doppler study was performed and revealed: No aortic regurgitation. Trace mitral regurgitation. Mitral diastolic velocities suggest reduced left ventricular relaxation c/w mild LV diastolic dysfunction (Grade I ). Mild tricuspid regurgitation. Tricuspid systolic velocities suggests peak right ventricular systolic pressure of 51 mmHg,consistent with moderate pulmonary hypertension .
--- NOTE | 2018-05-06 19:29 | General Progress Note ---
Assessment/Plan Assessment/Plan Assessment - suspected early cirrhosis based on imaging - hepatitis A/B/C negative - TRISTAN negative but F-Actin (+) - ? significance - UGIB, resolved - Anemia - Resp failure - s/p PEG and Trach Recommendations - not good candidate for liver biopsy or for steroids - would follow conservatively - continue TF Subjective Allergies: Coded Allergies: No Known Allergies (Unverified , 01/27/17) Subjective No events overnight Tolerating TF non communicative Objective Last 24 Hour Vital Signs Date Time Temp Pulse Resp B/P (MAP) Pulse Ox O2 Delivery O2 Flow Rate FiO2 05/06/18 19:10 69 28 30 05/06/18 17:06 73 30 30 05/06/18 16:00 98.6 75 24 128/62 (84) 98 98.6 05/06/18 16:00 30 05/06/18 16:00 Mechanical Ventilator 05/06/18 16:00 69 05/06/18 15:23 68 22 30 05/06/18 12:50 66 24 30 05/06/18 12:00 Mechanical Ventilator 05/06/18 12:00 30 05/06/18 12:00 98.7 74 36 146/74 (98) 100 98.7 05/06/18 12:00 79 05/06/18 10:54 67 32 30 05/06/18 10:52 100 05/06/18 10:48 30 05/06/18 09:30 71 26 30 05/06/18 08:31 74 142/71 05/06/18 08:00 30 05/06/18 08:00 98.8 74 25 142/71 (94) 98 98.8 05/06/18 08:00 Mechanical Ventilator 05/06/18 07:52 75 05/06/18 07:01 75 23 30 05/06/18 05:21 72 22 30 05/06/18 04:05 74 05/06/18 04:00 98.2 62 16 120/55 (76) 100 98.2 05/06/18 04:00 30 05/06/18 04:00 Mechanical Ventilator 05/06/18 03:25 76 23 30 05/06/18 01:27 72 32 30 05/06/18 00:00 98.1 67 25 150/70 (96) 100 98.1 05/06/18 00:00 65 05/06/18 00:00 30 05/06/18 00:00 Mechanical Ventilator 05/05/18 22:40 80 25 30 05/05/18 20:59 73 153/75 05/05/18 20:50 73 29 30 05/05/18 20:00 Mechanical Ventilator 05/05/18 20:00 98.1 68 28 153/75 (101) 100 98.1 05/05/18 19:53 69 Intake and Output 05/05/18 05/06/18 19:00 07:00 Intake Total 1627.5 ml 1607.5 ml Output Total 3500 ml 1200 ml Balance -1872.5 ml 407.5 ml Free Water 150 ml IV Total 757.5 ml 887.5 ml Tube Feeding 720 ml 720 ml Output Urine Total 3500 ml 1200 ml # Bowel Movements 4 Laboratory Tests 05/06/18 05:00: White Blood Count 4.8, Red Blood Count 3.52L, Hemoglobin 8.4L, Hematocrit 27.0L , Mean Corpuscular Volume 77L, Mean Corpuscular Hemoglobin 23.8L, Mean Corpuscular Hemoglobin Concent 31.1L, Red Cell Distribution Width 17.8H, Platelet Count 232, Mean Platelet Volume 5.5L, Neutrophils (%) (Auto) 65.0, Lymphocytes (%) (Auto) 16.7L, Monocytes (%) (Auto) 15.9H, Eosinophils (%) (Auto ) 1.7, Basophils (%) (Auto) 0.7, Sodium Level 137, Potassium Level 4.0, Chloride Level 105, Carbon Dioxide Level 27, Anion Gap 5, Blood Urea Nitrogen 19H, Creatinine 0.5L, Estimat Glomerular Filtration Rate , Glucose Level 129H, Calcium Level 7.9L, Magnesium Level 2.0, Total Bilirubin 0.4, Aspartate Amino Transf (AST/SGOT) 67H, Alanine Aminotransferase (ALT/SGPT) 24, Alkaline Phosphatase 305H, Pro-B-Type Natriuretic Peptide 1756H, Total Protein 5.2L, Albumin 1.3L, Globulin 3.9, Albumin/Globulin Ratio 0.3L Height (Feet): 5 Height (Inches): 7.00 Weight (Pounds): 142 Objective Thin AA man non communicative NCAT (+) trach CTA RRR soft ND NT, (+) GT no edema Oli Amaya MD May 06, 2018 19:29
[2018-05-06 20:00] VITALS: BP 154/80
[2018-05-06] MEDS: Dyna-Hex 2% Top Sol 2oz TOPIC SCH (20:10)
[2018-05-06] MEDS: Tamsulosin 0.4mg cap ORAL SCH (20:11)
--- NOTE | 2018-05-06 20:20 | Neurology Progress Note ---
Interim History Interim History Interim History Mr. Narvaez is awake today. His eyes are open and he makes brief eye contact. He also turns his eyes and head towards the side of vocal stimulation. He blinks to threat. He however was non verbal even in [place]. He continues to be seizure-free. He continues to be non-functional. His cardio-respiratory function is stable. Review of Systems Neuro Review of Systems Unable to obtain. Objective Physical Exam Last Vital Signs Date Time Temp Pulse Resp B/P (MAP) Pulse Ox O2 Delivery O2 Flow Rate FiO2 05/06/18 20:11 68 154/80 05/06/18 19:10 28 30 05/06/18 16:00 98.6 98 98.6 05/06/18 16:00 Mechanical Ventilator 04/28/18 19:14 Laboratory Tests Test 05/06/18 05:00 White Blood Count 4.8 K/UL (4.8-10.8) Red Blood Count 3.52 M/UL (4.70-6.10) L Hemoglobin 8.4 G/DL (14.2-18.0) L Hematocrit 27.0 % (42.0-52.0) L Mean Corpuscular Volume 77 FL (80-99) L Mean Corpuscular Hemoglobin 23.8 PG (27.0-31.0) L Mean Corpuscular Hemoglobin Concent 31.1 G/DL (32.0-36.0) L Red Cell Distribution Width 17.8 % (11.6-14.8) H Platelet Count 232 K/UL (150-450) Mean Platelet Volume 5.5 FL (6.5-10.1) L Neutrophils (%) (Auto) 65.0 % (45.0-75.0) Lymphocytes (%) (Auto) 16.7 % (20.0-45.0) L Monocytes (%) (Auto) 15.9 % (1.0-10.0) H Eosinophils (%) (Auto) 1.7 % (0.0-3.0) Basophils (%) (Auto) 0.7 % (0.0-2.0) Sodium Level 137 MMOL/L (136-145) Potassium Level 4.0 MMOL/L (3.5-5.1) Chloride Level 105 MMOL/L (98-107) Carbon Dioxide Level 27 MMOL/L (21-32) Anion Gap 5 mmol/L (5-15) Blood Urea Nitrogen 19 mg/dL (7-18) H Creatinine 0.5 MG/DL (0.55-1.30) L Estimat Glomerular Filtration Rate mL/min (>60) Glucose Level 129 MG/DL (74-106) H Calcium Level 7.9 MG/DL (8.5-10.1) L Magnesium Level 2.0 MG/DL (1.8-2.4) Total Bilirubin 0.4 MG/DL (0.2-1.0) Aspartate Amino Transf (AST/SGOT) 67 U/L (15-37) H Alanine Aminotransferase (ALT/SGPT) 24 U/L (12-78) Alkaline Phosphatase 305 U/L (46-116) H Pro-B-Type Natriuretic Peptide 1756 pg/mL (0-125) H Total Protein 5.2 G/DL (6.4-8.2) L Albumin 1.3 G/DL (3.4-5.0) L Globulin 3.9 g/dL Albumin/Globulin Ratio 0.3 (1.0-2.7) L Neurologic Exam Objective PHYSICAL EXAMINATION: GENERAL: He is a well-developed, ill-looking black gentleman, lying in bed, in no acute distress. HEAD: Normocephalic and atraumatic. EENT: Examination benign. NECK: No neck rigidity was observed. NEUROLOGICAL EXAMINATION: MENTAL STATUS EXAMINATION: He was awake. His eyes were open and he made eye contact. He also turned his eyes and head towards the side of vocal stimulation. He blinked to threat. He however was non verbal even in [place]. SPEECH: Could not be tested. LANGUAGE: Could not be tested. CRANIAL NERVE EXAMINATION: II: He did blink to threat. III, IV & : External ocular movements were present. The pupils were 3 mm in diameter, equal, round, regular, and reactive sluggishly to light. V & VII: The corneal reflexes were present bilaterally. However, the right- sided reflex was significantly diminished compared to the left. VIII: He was able to hear and had no nystagmus. IX & X: Gag reflex was suppressed. XI: The sternocleidomastoids and trapezii functioned minimally. XII: The tongue was in the midline. MOTOR SYSTEM: The tone was increased in all four extremities with spasticity more marked on the right than on the left. Examination of muscle mass revealed generalized muscle wasting, again more marked on the right than on the left. Examination of power was impossible to perform on individual muscle groups. However, he did move all four extremities on deep pain with possibly right greater than left-sided weakness. SENSORY EXAMINATION: He responded appropriately to deep pain with less vigorous responses on the right side compared to the left. REFLEXES: Trace+ and bilaterally symmetrical at the biceps, triceps, brachioradialis. 0 at both knees and ankles. The plantar responses were extensor bilaterally. COORDINATION, STANCE & GAIT: Could not be tested. Impression/Recommendations Diagnostic Impression 1. Mr. Sagar Narvaez is a 72-year-old, [place] gentleman, of unknown handedness, who does have a past history of cerebrovascular disease with a prior stroke, pulmonary tuberculosis, chronic respiratory failure for which he has tracheostomy, and dysphagia for which he has a gastrostomy; who lives in longterm where he was noted to have an alteration in his mental state in the form of increased lethargy. He was thus brought into the [facility] emergency room and following admission, he apparently spiked a fever to 103 degrees Fahrenheit followed by multiple seizures. He was cooled down, given Ativan and started on Keppra and has been seizure-free since then. 2. He is awake. His eyes are open and he makes brief eye contact. He also turns his eyes and head towards the side of vocal stimulation. He blinks to threat. He however was non verbal even in [place]. He continues to be seizure-free. He continues to be non-functional. His cardio-respiratory function is stable. 3. On neurological examination, at this time, he is awake. He however is unable to communicate. His corneal reflex is diminished on the right side compared to the left. 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 In addition, he responds to deep pain, less on the right than on the left. His deep tendon reflexes are globally diminished and his plantar responses are extensor bilaterally. 4. Laboratory data on my initial evaluation revealed that his WBC count is creeping up from 4.4 to 9.5. He is significantly anemic with a hemoglobin of 8.8 G. His chemistry panel reveals that his bilirubin is elevated to 1.1. His alkaline phosphatase is elevated to 367, his AST is elevated to 52. His albumin is low at 1.9. His arterial blood gas reveals a pCO2 of 29 and a pO2 of 59 with a pH of 7.43. His urinalysis reveals 2+ leukocyte esterase with 2-4 RBCs and 2-4 WBCs per high-power field. 5. The EEG done on 04/27/18 revealed a moderately severe encephalopathy and left > right hemispheric dysfunction. No inter-ictal discharges were seen. 6. The CT of the brain done on 04/30/18 revealed multiple old bilateral cerebral infarcts involving the left > right brain. 7. 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 8. His mental state is improving slowly. Recommendations 1. Continue present management. 2. Continue Keppra 750 mg q.12 hours. 3. Observe. Mercedes Coelho M.D., M.S.P.H. MERCEDES COELHO May 06, 2018 20:20
[2018-05-07] VITALS: BP 143/70
[2018-05-07 04:00] VITALS: BP 147/71
--- NOTE | 2018-05-07 04:30 | Progress Note ---
DATE: 05/06/2018 CARDIOLOGY PROGRESS NOTE SUBJECTIVE: No new events. Poorly responsive. Weaning efforts ongoing. OBJECTIVE: VITAL SIGNS: Blood pressure 146/74, pulse 74, respiratory rate 36. Respiratory rate ranging from 22 to 36. LUNGS: Coarse breath sounds with rhonchi. HEART: Regular rhythm and rate. Normal S1, S2. ABDOMEN: Soft. EXTREMITIES: Trace edema. LABORATORY AND DIAGNOSTIC DATA: White count 4.8, hemoglobin 8.4. Potassium 4, BUN 19, creatinine 0.5, magnesium 2. Pro-natriuretic peptide decreased to 1756. Albumin 1.3. Chest x-ray today reveals decreased pleural fluid and continued left basilar consolidation. IMPRESSION: 1. Respiratory failure. 2. Pulmonary tuberculosis. 3. Healthcare-acquired pneumonia. 4. Sepsis with shock, recovered. 5. Hypomagnesemia, replaced. 6. Severe protein-calorie malnutrition, on G-tube feedings. 7. Acute on chronic diastolic congestive heart failure, improving with periodic diuresis. PLAN: Continue same cardiovascular management with episodes of diuretic based on clinical finding. Jones Arauz M.D. DR: Shabbir JOB#: [id number] CC:
--- NOTE | 2018-05-07 07:33 | General Progress Note ---
Assessment/Plan Problem List: (1) Status epilepticus ICD Codes: G40.901 - Epilepsy, unspecified, not intractable, with status epilepticus SNOMED: 659011561 (2) Encephalopathy acute ICD Codes: G93.40 - Encephalopathy, unspecified SNOMED: 27620265, 150642996 (3) Probable sepsis ICD Codes: A41.9 - Sepsis, unspecified organism SNOMED: 979942984 (4) Dementia ICD Codes: F03.90 - Unspecified dementia without behavioral disturbance SNOMED: 87709777 (5) Encephalopathy ICD Codes: G93.40 - Encephalopathy, unspecified SNOMED: 21117945 (6) Sepsis ICD Codes: A41.9 - Sepsis, unspecified organism SNOMED: 45581078 (7) Pulmonary tuberculosis ICD Codes: A15.0 - Tuberculosis of lung SNOMED: 113351476 (8) Dehydration ICD Codes: E86.0 - Dehydration SNOMED: 86356011 (9) Altered level of consciousness ICD Codes: R40.4 - Transient alteration of awareness SNOMED: 2972996 Status: stable, progressing Assessment/Plan vent support resp rx wean as able- only tolerated 20 mins PPI rx abx per ID 4 tb druga gt feeds wound care check labs in am prognosis poor Subjective ROS Limited/Unobtainable: Yes Constitutional: Reports: malaise, weakness HEENT: Reports: no symptoms Cardiovascular: Reports: no symptoms Respiratory: Reports: no symptoms Gastrointestinal/Abdominal: Reports: difficulty swallowing Genitourinary: Reports: no symptoms Neurologic/Psychiatric: Reports: pre-existing deficit, seizure Endocrine: Reports: no symptoms Hematologic/Lymphatic: Reports: no symptoms Allergies: Coded Allergies: No Known Allergies (Unverified , 01/27/17) All Systems: reviewed and negative except above Subjective no change. on the vent. opens eyes. doesnt really track or follow commands. tolerating feeds no szs noted. Objective Last 24 Hour Vital Signs Date Time Temp Pulse Resp B/P (MAP) Pulse Ox O2 Delivery O2 Flow Rate FiO2 05/07/18 06:37 65 22 30 05/07/18 04:48 65 25 30 05/07/18 04:00 97.3 64 21 147/71 (96) 100 97.3 05/07/18 04:00 Mechanical Ventilator 05/07/18 04:00 30 05/07/18 04:00 65 05/07/18 03:29 72 21 30 05/07/18 00:40 61 20 30 05/07/18 00:00 98.1 65 19 143/70 (94) 100 98.1 05/07/18 00:00 30 05/07/18 00:00 Mechanical Ventilator 05/07/18 00:00 63 05/06/18 22:41 63 25 30 05/06/18 21:20 58 22 30 05/06/18 20:11 68 154/80 05/06/18 20:00 30 05/06/18 20:00 Mechanical Ventilator 05/06/18 20:00 67 05/06/18 20:00 97.5 68 23 154/80 (104) 99 97.5 05/06/18 19:10 69 28 30 05/06/18 17:06 73 30 30 05/06/18 16:00 98.6 75 24 128/62 (84) 98 98.6 05/06/18 16:00 30 05/06/18 16:00 Mechanical Ventilator 05/06/18 16:00 69 05/06/18 15:23 68 22 30 05/06/18 12:50 66 24 30 05/06/18 12:00 Mechanical Ventilator 05/06/18 12:00 30 05/06/18 12:00 98.7 74 36 146/74 (98) 100 98.7 05/06/18 12:00 79 05/06/18 10:54 67 32 30 05/06/18 10:52 100 05/06/18 10:48 30 05/06/18 09:30 71 26 30 05/06/18 08:31 74 142/71 05/06/18 08:00 30 05/06/18 08:00 98.8 74 25 142/71 (94) 98 98.8 05/06/18 08:00 Mechanical Ventilator 05/06/18 07:52 75 Intake and Output 05/06/18 05/07/18 19:00 07:00 Intake Total 1637.5 ml 1685 ml Output Total 1000 ml 2900 ml Balance 637.5 ml -1215 ml Free Water 100 ml 60 ml IV Total 757.5 ml 965 ml Tube Feeding 780 ml 660 ml Output Urine Total 1000 ml 2900 ml # Bowel Movements 2 Height (Feet): 5 Height (Inches): 7.00 Weight (Pounds): 145 Objective General Appearance: WD/WN, cachetic, thin Neck: supple Cardiovascular: tachycardia Respiratory/Chest: rhonchi - bilaterally Abdomen: normal bowel sounds, non tender, soft, no organomegaly Edema: no edema noted Arm (L), no edema noted Arm (R), no edema noted Leg (L), no edema noted Leg (R), no edema noted Pedal (L), no edema noted Pedal (R), no edema noted Generalized Jarrod Vásquez MD May 07, 2018 07:33
[2018-05-07 08:00] VITALS: BP_SYST 147; BP_SYST 149; BP_DIAS 73; BP_DIAS 86
[2018-05-07] MEDS: cefTRIAXone 1 GM in D5W 55 ML IVPB SCH (08:14)
[2018-05-07] MEDS: Docusate 100mg/10ml Liq ORAL SCH (08:14)
[2018-05-07] MEDS: Multivitamin w/Minerals tab ORAL SCH (08:15)
[2018-05-07] MEDS: Isoniazid 300mg tab ORAL SCH (08:15)
[2018-05-07] MEDS: Pyridoxine 50mg tab ORAL SCH (08:16)
[2018-05-07] MEDS: Fluconazole 100mg tab ORAL SCH (08:16)
[2018-05-07] MEDS: Metoprolol Tartrate 50mg tab GT SCH ×2 (08:21→20:35)
[2018-05-07] MEDS: levETIRAcetam 750 MG in D5W 95 ML IV SCH ×2 (10:12→20:34)
--- NOTE | 2018-05-07 10:52 | Infectious Diseases Prog Note ---
Assessment/Plan Assessment/Plan A; Fever resolved Pneumonia Fungal UTI Pulmonary TB AMS VDRF VRE colozation history of CVA Gastritis P; Continue Rocephin X 4 days & Fluconazole X 2 days Continue TB treatment with [facility] Subjective ROS Limited/Unobtainable: Yes Allergies: Coded Allergies: No Known Allergies (Unverified , 01/27/17) Objective Vital Signs Last 24 Hour Vital Signs Date Time Temp Pulse Resp B/P (MAP) Pulse Ox O2 Delivery O2 Flow Rate FiO2 05/07/18 09:30 68 05/07/18 09:19 66 22 30 05/07/18 08:21 75 149/86 05/07/18 08:00 97.9 66 22 147/73 (97) 100 97.9 05/07/18 08:00 30 05/07/18 08:00 Mechanical Ventilator 05/07/18 08:00 98.1 75 28 149/86 (107) 100 98.1 05/07/18 06:37 65 22 30 05/07/18 04:48 65 25 30 05/07/18 04:00 97.3 64 21 147/71 (96) 100 97.3 05/07/18 04:00 Mechanical Ventilator 05/07/18 04:00 30 05/07/18 04:00 65 05/07/18 03:29 72 21 30 05/07/18 00:40 61 20 30 05/07/18 00:00 98.1 65 19 143/70 (94) 100 98.1 05/07/18 00:00 30 05/07/18 00:00 Mechanical Ventilator 05/07/18 00:00 63 05/06/18 22:41 63 25 30 05/06/18 21:20 58 22 30 05/06/18 20:11 68 154/80 05/06/18 20:00 30 05/06/18 20:00 Mechanical Ventilator 05/06/18 20:00 67 05/06/18 20:00 97.5 68 23 154/80 (104) 99 97.5 05/06/18 19:10 69 28 30 05/06/18 17:06 73 30 30 05/06/18 16:00 98.6 75 24 128/62 (84) 98 98.6 05/06/18 16:00 30 05/06/18 16:00 Mechanical Ventilator 05/06/18 16:00 69 05/06/18 15:23 68 22 30 05/06/18 12:50 66 24 30 05/06/18 12:00 Mechanical Ventilator 05/06/18 12:00 30 05/06/18 12:00 98.7 74 36 146/74 (98) 100 98.7 05/06/18 12:00 79 05/06/18 10:54 67 32 30 05/06/18 10:52 100 Height (Feet): 5 Height (Inches): 7.00 Weight (Pounds): 145 HEENT: status post trach Respiratory/Chest: lungs clear, other - on ventilator Cardiovascular: normal rate, other - left arm PICC line Abdomen: soft, non tender, other - GT feeding Extremities: no edema Neurologic/Psychiatric: unresponsiveness, aphasia Microbiology Date/Time Source Procedure Growth Status 05/05/18 11:05 Blood Blood Culture - Preliminary NO GROWTH AFTER 24 HOURS Resulted 05/05/18 08:04 Blood Blood Culture - Preliminary NO GROWTH AFTER 24 HOURS Resulted 05/05/18 08:15 Indwelling Cath Urine Culture - Preliminary YEAST Resulted Current Medications Medications (Trade) Dose Ordered Sig/Iram Route PRN Reason Start Time Stop Time Status Last Admin Dose Admin Acetaminophen (Tylenol) 650 mg Q4H PRN ORAL Fever/Headache/Mild Pain 05/02/18 18:30 05/26/18 18:29 05/05/18 06:41 Artificial Tears (Akwa-Tears) 2 drop FIVE TIMES A DAY PRN BOTH EYES Dry Eyes 05/02/18 19:00 05/31/18 11:44 05/06/18 08:32 Atorvastatin Calcium (Lipitor) 10 mg BEDTIME GT 05/02/18 21:00 05/28/18 20:59 05/06/18 20:11 Ceftriaxone Sodium 1 gm/ Dextrose 55 ml @ 110 mls/hr DAILY IVPB 05/03/18 09:00 05/10/18 23:59 05/07/18 08:14 Chlorhexidine Gluconate (Letha-Hex 2%) 1 applic DAILY@2000 TOPIC 05/02/18 20:00 05/31/18 19:59 05/06/18 20:10 Clonidine HCl (Catapres Tab) 0.1 mg Q4H PRN ORAL SBP >160 05/02/18 19:00 05/28/18 10:59 Dextrose/Sodium Chloride 1,000 ml @ 50 mls/hr Q20H IV 05/02/18 17:30 05/29/18 21:21 05/06/18 21:39 Docusate Sodium (Colace) 100 mg DAILY ORAL 05/03/18 09:00 05/27/18 08:59 05/07/18 08:14 Ethambutol HCl (Myambutol) 800 mg DAILY ORAL 05/03/18 09:00 05/27/18 08:59 05/07/18 08:16 Fluconazole (Diflucan) 100 mg DAILY ORAL 05/04/18 09:00 05/11/18 08:59 05/07/18 08:16 Hydralazine HCl (Apresoline) 10 mg Q4H PRN IV SBP >160 05/02/18 18:18 05/28/18 18:17 Isoniazid (Inh) 300 mg DAILY ORAL 05/03/18 09:00 05/27/18 08:59 05/07/18 08:15 Lansoprazole (Prevacid) 30 mg Q12HR ORAL 05/05/18 21:00 06/04/18 20:59 05/07/18 08:15 Levetiracetam 750 mg/Dextrose 102.5 ml @ 440 mls/hr Q12HR IV 05/02/18 21:00 05/29/18 00:59 05/07/18 10:12 Metoprolol Tartrate (Lopressor) 50 mg Q12HR GT 05/02/18 21:00 05/28/18 20:59 05/07/18 08:21 Multivitamins Therapeutic (Therapeutic Multivitamin) 1 ea DAILY ORAL 05/03/18 09:00 05/27/18 08:59 05/07/18 08:15 Ondansetron HCl (Zofran) 4 mg Q6H PRN IVP Nausea & Vomiting 05/02/18 18:19 05/28/18 18:18 Pyrazinamide (Pza) 1,000 mg DAILY ORAL 05/03/18 09:00 05/28/18 08:59 05/07/18 08:16 Pyridoxine HCl (Vitamin B6) 50 mg DAILY ORAL 05/03/18 09:00 05/27/18 08:59 05/07/18 08:16 Rifampin (Rifadin) 600 mg DAILY ORAL 05/03/18 09:00 05/27/18 08:59 05/07/18 08:15 Sennosides (Senokot) 2 tab BIDPRN PRN GT Constipation 05/02/18 18:20 05/27/18 18:19 Tamsulosin HCl (Flomax) 0.4 mg BEDTIME ORAL 05/02/18 21:00 05/27/18 20:59 05/06/18 20:11 Rahul Shen MD May 07, 2018 10:52
[2018-05-07 12:00] VITALS: BP 170/80
[2018-05-07] MEDS ORDERED: NS 275ml ONE (15:57)
[2018-05-07] MEDS ORDERED: Tubing IV Secondary IV ONE (15:57)
[2018-05-07] MEDS ORDERED: D5NS 1000ml IV ONE (15:57)
[2018-05-07 16:00] VITALS: BP 155/81
[2018-05-07] MEDS: D5NS 1,000 ML IV SCH (17:57)
--- NOTE | 2018-05-07 18:36 | Neurology Progress Note ---
Interim History Interim History Interim History Mr. Narvaez is awake. His eyes are open and he makes more consistent eye contact. He also turns his eyes and head towards the side of vocal stimulation. He blinks to threat. He nods and gives some yes/no answers. He however is non verbal even in Mongolian. He continues to be seizure-free. He continues to be non-functional. His cardio-respiratory function is stable. Review of Systems Neuro Review of Systems Unable to obtain. Objective Physical Exam Last Vital Signs Date Time Temp Pulse Resp B/P (MAP) Pulse Ox O2 Delivery O2 Flow Rate FiO2 05/07/18 17:03 68 05/07/18 17:01 21 30 05/07/18 16:00 Mechanical Ventilator 05/07/18 12:00 97.7 170/80 (110) 100 97.7 04/28/18 19:14 Laboratory Tests Test 05/07/18 12:23 Arterial Blood pH 7.490 (7.350-7.450) Arterial Blood Partial Pressure CO2 32.9 mmHg (35.0-45.0) L Arterial Blood Partial Pressure O2 135.6 mmHg (75.0-100.0) H Arterial Blood HCO3 25.0 mmol/L (22.0-26.0) Arterial Blood Oxygen Saturation 98.3 % (95-100) Arterial Blood Base Excess 2.0 (-2-2) Derek Test Positive Neurologic Exam Objective PHYSICAL EXAMINATION: GENERAL: He is a well-developed, ill-looking black gentleman, lying in bed, in no acute distress. HEAD: Normocephalic and atraumatic. EENT: Examination benign. NECK: No neck rigidity was observed. NEUROLOGICAL EXAMINATION: MENTAL STATUS EXAMINATION: He was awake. His eyes were open and he made eye contact. He also turned his eyes and head towards the side of vocal stimulation. He blinked to threat. He gave some yes/no answers by nodding. He however was non verbal even in Mongolian. SPEECH: Could not be tested. LANGUAGE: Could not be tested. CRANIAL NERVE EXAMINATION: II: He did blink to threat. III, IV & : External ocular movements were present. The pupils were 3 mm in diameter, equal, round, regular, and reactive sluggishly to light. V & VII: The corneal reflexes were present bilaterally. However, the right- sided reflex was significantly diminished compared to the left. VIII: He was able to hear and had no nystagmus. IX & X: Gag reflex was suppressed. XI: The sternocleidomastoids and trapezii functioned minimally. XII: The tongue was in the midline. MOTOR SYSTEM: The tone was increased in all four extremities with spasticity more marked on the right than on the left. Examination of muscle mass revealed generalized muscle wasting, again more marked on the right than on the left. Examination of power was impossible to perform on individual muscle groups. However, he did move all four extremities on deep pain with possibly right greater than left-sided weakness. SENSORY EXAMINATION: He responded appropriately to deep pain with less vigorous responses on the right side compared to the left. REFLEXES: Trace+ and bilaterally symmetrical at the biceps, triceps, brachioradialis. 0 at both knees and ankles. The plantar responses were extensor bilaterally. COORDINATION, STANCE & GAIT: Could not be tested. Impression/Recommendations Diagnostic Impression 1. Mr. Sagar Narvaez is a 72-year-old, [place] gentleman, of unknown handedness, who does have a past history of cerebrovascular disease with a prior stroke, pulmonary tuberculosis, chronic respiratory failure for which he has tracheostomy, and dysphagia for which he has a gastrostomy; who lives in [facility] where he was noted to have an alteration in his mental state in the form of increased lethargy. He was thus brought into the [facility] emergency room and following admission, he apparently spiked a fever to 103 degrees Fahrenheit followed by multiple seizures. He was cooled down, given Ativan and started on Keppra and has been seizure-free since then. 2. He is awake. His eyes are open and he makes brief eye contact. He also turns his eyes and head towards the side of vocal stimulation. He blinks to threat. He nods and gives some yes/no answers. He however was non verbal even in Mongolian. He continues to be seizure-free. He continues to be non-functional. His cardio-respiratory function is stable. 3. On neurological examination, at this time, he is awake. He nods and gives some yes/no answers. His corneal reflex is diminished on the right side compared to the left. 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 In addition, he responds to deep pain, less on the right than on the left. His deep tendon reflexes are globally diminished and his plantar responses are extensor bilaterally. 4. Laboratory data on my initial evaluation revealed that his WBC count is creeping up from 4.4 to 9.5. He is significantly anemic with a hemoglobin of 8.8 G. His chemistry panel reveals that his bilirubin is elevated to 1.1. His alkaline phosphatase is elevated to 367, his AST is elevated to 52. His albumin is low at 1.9. His arterial blood gas reveals a pCO2 of 29 and a pO2 of 59 with a pH of 7.43. His urinalysis reveals 2+ leukocyte esterase with 2-4 RBCs and 2-4 WBCs per high-power field. 5. The EEG done on 04/27/18 revealed a moderately severe encephalopathy and left > right hemispheric dysfunction. No inter-ictal discharges were seen. 6. The CT of the brain done on 04/30/18 revealed multiple old bilateral cerebral infarcts involving the left > right brain. 7. 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 8. His mental state is improving slowly. Recommendations 1. Continue present management. 2. Continue Keppra 750 mg q.12 hours. 3. Agree with plan to transfer to SNF. Mercedes Coelho M.D., M.S.P.Rosa M. MERCEDES COELHO May 07, 2018 18:36
--- NOTE | 2018-05-07 19:08 | Pulmonology Progress Note ---
Assessment/Plan Assessment/Plan IMPRESSION respiratory failure possible sepsis chronic encephalopathy trach debility hypoxemia htn metabolic acidosis ho hypertension ho seizures abnormal imaging PLAN exam noted and reviewed; stable overall and tolerating cpap IV antibiotics reviewed respiratory care on full support vent support and start wean in am elevate head and monitor try off vent and monitor supportive care as outlined monitor acid base and intervene suction PRN periodic imaging for change; noted infiltrate dc planning follow clinically for change and monitor for clearing and improvement oxygen as needed monitor hemodynamics and adjust prognosis guarded at present fully dependent medications/laboratory data/nursing notes reviewed in detail note reviewed and edited care discussed with RN and RT Subjective ROS Limited/Unobtainable: Yes Allergies: Coded Allergies: No Known Allergies (Unverified , 01/27/17) Subjective care reviewed on vent and tolerating CPAP in JOSESITO comfortable at presen ABG noted hemodynamics noted Objective Last 24 Hour Vital Signs Date Time Temp Pulse Resp B/P (MAP) Pulse Ox O2 Delivery O2 Flow Rate FiO2 05/07/18 17:03 68 05/07/18 17:01 66 21 30 05/07/18 16:00 97.5 68 28 155/81 (105) 100 97.5 05/07/18 16:00 Mechanical Ventilator 05/07/18 16:00 30 05/07/18 15:28 71 19 30 05/07/18 14:23 67 05/07/18 13:28 66 32 05/07/18 12:00 97.7 68 32 170/80 (110) 100 97.7 05/07/18 12:00 45 05/07/18 12:00 Mechanical Ventilator 05/07/18 11:02 100 05/07/18 10:57 66 32 05/07/18 09:30 68 05/07/18 09:19 66 22 30 05/07/18 08:21 75 149/86 05/07/18 08:00 97.9 66 22 147/73 (97) 100 97.9 05/07/18 08:00 30 05/07/18 08:00 Mechanical Ventilator 05/07/18 08:00 98.1 75 28 149/86 (107) 100 98.1 05/07/18 06:37 65 22 30 05/07/18 04:48 65 25 30 05/07/18 04:00 97.3 64 21 147/71 (96) 100 97.3 05/07/18 04:00 Mechanical Ventilator 05/07/18 04:00 30 05/07/18 04:00 65 05/07/18 03:29 72 21 30 05/07/18 00:40 61 20 30 05/07/18 00:00 98.1 65 19 143/70 (94) 100 98.1 05/07/18 00:00 30 05/07/18 00:00 Mechanical Ventilator 05/07/18 00:00 63 05/06/18 22:41 63 25 30 05/06/18 21:20 58 22 30 05/06/18 20:11 68 154/80 05/06/18 20:00 30 05/06/18 20:00 Mechanical Ventilator 05/06/18 20:00 67 05/06/18 20:00 97.5 68 23 154/80 (104) 99 97.5 05/06/18 19:10 69 28 30 Intake and Output 05/06/18 05/07/18 19:00 07:00 Intake Total 1637.5 ml 1795 ml Output Total 1000 ml 2900 ml Balance 637.5 ml -1105 ml Free Water 100 ml 60 ml IV Total 757.5 ml 1015 ml Tube Feeding 780 ml 720 ml Output Urine Total 1000 ml 2900 ml # Bowel Movements 2 Objective WDWN NAD poorly responsive moderate breath sounds bilaterally without rhonchi or wheeze [id number] without MRG NABS nontender no HSM; gt no CCE cachectic poor response to pain skin noted comfortable reviewed and edited Microbiology Date/Time Source Procedure Growth Status 05/05/18 11:05 Blood Blood Culture - Preliminary NO GROWTH AFTER 24 HOURS Resulted 05/05/18 08:04 Blood Blood Culture - Preliminary NO GROWTH AFTER 24 HOURS Resulted 05/05/18 08:15 Indwelling Cath Urine Culture - Preliminary YEAST Resulted Laboratory Tests 05/07/18 12:23: Arterial Blood pH 7.490H, Arterial Blood Partial Pressure CO2 32.9L, Arterial Blood Partial Pressure O2 135.6H, Arterial Blood HCO3 25.0, Arterial Blood Oxygen Saturation 98.3, Arterial Blood Base Excess 2.0, Derek Test Positive Current Medications Medications (Trade) Dose Ordered Sig/Iram Route PRN Reason Start Time Stop Time Status Last Admin Dose Admin Acetaminophen (Tylenol) 650 mg Q4H PRN ORAL Fever/Headache/Mild Pain 05/02/18 18:30 05/26/18 18:29 05/05/18 06:41 Artificial Tears (Akwa-Tears) 2 drop FIVE TIMES A DAY PRN BOTH EYES Dry Eyes 05/02/18 19:00 05/31/18 11:44 05/06/18 08:32 Atorvastatin Calcium (Lipitor) 10 mg BEDTIME GT 05/02/18 21:00 05/28/18 20:59 05/06/18 20:11 Ceftriaxone Sodium 1 gm/ Dextrose 55 ml @ 110 mls/hr DAILY IVPB 05/03/18 09:00 05/10/18 23:59 05/07/18 08:14 Chlorhexidine Gluconate (Letha-Hex 2%) 1 applic DAILY@2000 TOPIC 05/02/18 20:00 05/31/18 19:59 05/06/18 20:10 Clonidine HCl (Catapres Tab) 0.1 mg Q4H PRN ORAL SBP >160 05/02/18 19:00 05/28/18 10:59 Dextrose/Sodium Chloride 1,000 ml @ 50 mls/hr Q20H IV 05/02/18 17:30 05/29/18 21:21 05/07/18 17:57 Docusate Sodium (Colace) 100 mg DAILY ORAL 05/03/18 09:00 05/27/18 08:59 05/07/18 08:14 Ethambutol HCl (Myambutol) 800 mg DAILY ORAL 05/03/18 09:00 05/27/18 08:59 05/07/18 08:16 Fluconazole (Diflucan) 100 mg DAILY ORAL 05/04/18 09:00 05/11/18 08:59 05/07/18 08:16 Hydralazine HCl (Apresoline) 10 mg Q4H PRN IV SBP >160 05/02/18 18:18 05/28/18 18:17 Isoniazid (Inh) 300 mg DAILY ORAL 05/03/18 09:00 05/27/18 08:59 05/07/18 08:15 Lansoprazole (Prevacid) 30 mg Q12HR ORAL 05/05/18 21:00 06/04/18 20:59 05/07/18 08:15 Levetiracetam 750 mg/Dextrose 102.5 ml @ 440 mls/hr Q12HR IV 05/02/18 21:00 05/29/18 00:59 05/07/18 10:12 Metoprolol Tartrate (Lopressor) 50 mg Q12HR GT 05/02/18 21:00 05/28/18 20:59 05/07/18 08:21 Multivitamins Therapeutic (Therapeutic Multivitamin) 1 ea DAILY ORAL 05/03/18 09:00 05/27/18 08:59 05/07/18 08:15 Ondansetron HCl (Zofran) 4 mg Q6H PRN IVP Nausea & Vomiting 05/02/18 18:19 05/28/18 18:18 Pyrazinamide (Pza) 1,000 mg DAILY ORAL 05/03/18 09:00 05/28/18 08:59 05/07/18 08:16 Pyridoxine HCl (Vitamin B6) 50 mg DAILY ORAL 05/03/18 09:00 05/27/18 08:59 05/07/18 08:16 Rifampin (Rifadin) 600 mg DAILY ORAL 05/03/18 09:00 05/27/18 08:59 05/07/18 08:15 Sennosides (Senokot) 2 tab BIDPRN PRN GT Constipation 05/02/18 18:20 05/27/18 18:19 Tamsulosin HCl (Flomax) 0.4 mg BEDTIME ORAL 05/02/18 21:00 05/27/18 20:59 05/06/18 20:11 Nakul Cisse MD May 07, 2018 19:08
[2018-05-07 20:00] VITALS: BP 143/74
[2018-05-07] MEDS: Tamsulosin 0.4mg cap ORAL SCH (20:35)
[2018-05-07] MEDS: Dyna-Hex 2% Top Sol 2oz TOPIC SCH (20:35)
--- NOTE | 2018-05-07 21:21 | General Progress Note ---
Assessment/Plan Assessment/Plan Assessment - suspected early cirrhosis based on imaging - hepatitis A/B/C negative - TRISTAN negative but F-Actin (+) - ? significance - UGIB, resolved - Anemia - Resp failure - s/p PEG and Trach Recommendations - not good candidate for liver biopsy or for steroids - would follow conservatively - continue TF Subjective Allergies: Coded Allergies: No Known Allergies (Unverified , 01/27/17) Subjective No events overnight Tolerating TF non communicative d/w family at bedside Objective Last 24 Hour Vital Signs Date Time Temp Pulse Resp B/P (MAP) Pulse Ox O2 Delivery O2 Flow Rate FiO2 05/07/18 20:35 77 143/74 05/07/18 20:00 97.7 77 26 143/74 (97) 100 97.7 05/07/18 19:29 T-piece 8.0 30 05/07/18 19:29 100 T-piece 8.0 30 05/07/18 17:03 68 05/07/18 17:01 66 21 30 05/07/18 16:00 97.5 68 28 155/81 (105) 100 97.5 05/07/18 16:00 Mechanical Ventilator 05/07/18 16:00 30 05/07/18 15:28 71 19 30 05/07/18 14:23 67 05/07/18 13:28 66 32 05/07/18 12:00 97.7 68 32 170/80 (110) 100 97.7 05/07/18 12:00 45 05/07/18 12:00 Mechanical Ventilator 05/07/18 11:02 100 05/07/18 10:57 66 32 05/07/18 09:30 68 05/07/18 09:19 66 22 30 05/07/18 08:21 75 149/86 05/07/18 08:00 97.9 66 22 147/73 (97) 100 97.9 05/07/18 08:00 30 05/07/18 08:00 Mechanical Ventilator 05/07/18 08:00 98.1 75 28 149/86 (107) 100 98.1 05/07/18 06:37 65 22 30 05/07/18 04:48 65 25 30 05/07/18 04:00 97.3 64 21 147/71 (96) 100 97.3 05/07/18 04:00 Mechanical Ventilator 05/07/18 04:00 30 05/07/18 04:00 65 05/07/18 03:29 72 21 30 05/07/18 00:40 61 20 30 05/07/18 00:00 98.1 65 19 143/70 (94) 100 98.1 05/07/18 00:00 30 05/07/18 00:00 Mechanical Ventilator 05/07/18 00:00 63 05/06/18 22:41 63 25 30 05/06/18 21:20 58 22 30 Intake and Output 05/06/18 05/07/18 19:00 07:00 Intake Total 1637.5 ml 1795 ml Output Total 1000 ml 2900 ml Balance 637.5 ml -1105 ml Free Water 100 ml 60 ml IV Total 757.5 ml 1015 ml Tube Feeding 780 ml 720 ml Output Urine Total 1000 ml 2900 ml # Bowel Movements 2 Laboratory Tests 05/07/18 12:23: Arterial Blood pH 7.490H, Arterial Blood Partial Pressure CO2 32.9L, Arterial Blood Partial Pressure O2 135.6H, Arterial Blood HCO3 25.0, Arterial Blood Oxygen Saturation 98.3, Arterial Blood Base Excess 2.0, Derek Test Positive Height (Feet): 5 Height (Inches): 7.00 Weight (Pounds): 145 Objective Thin AA man non communicative NCAT (+) trach CTA RRR soft ND NT, (+) GT no edema Oil Amaya MD May 07, 2018 21:21
[2018-05-08] VITALS: BP 155/84
[2018-05-08 04:00] VITALS: BP 154/77
[2018-05-08 04:46] LABS: BASOPHILS % (AUTO) 1.4 % (0.0-2.0); EOSINOPHILS % (AUTO) 2.3 % (0.0-3.0); HEMATOCRIT 28.5 % (42.0-52.0); HEMOGLOBIN 9.2 G/DL (14.2-18.0); LYMPHOCYTES % (AUTO) 19.3 % (20.0-45.0); MEAN CORPUSCULAR VOLUME 77 FL (80-99); MONOCYTES % (AUTO) 18.3 % (1.0-10.0); NEUTROPHILS % (AUTO) 58.8 % (45.0-75.0); PLATELET COUNT 261 K/UL (150-450); RED CELL DISTRIBUTION WIDTH 17.6 % (11.6-14.8); WHITE BLOOD COUNT 3.9 K/UL (4.8-10.8)
[2018-05-08 05:27] LABS: ALANINE AMINOTRANSFERASE 58 U/L (12-78); ALBUMIN 1.5 G/DL (3.4-5.0); ALBUMIN/GLOBULIN RATIO 0.3 (1.0-2.7); ALKALINE PHOSPHATASE 376 U/L (46-116); ANION GAP 6 mmol/L (5-15); ASPARTATE AMINO TRANSFERASE 163 U/L (15-37); BILIRUBIN,TOTAL 0.6 MG/DL (0.2-1.0); BLOOD UREA NITROGEN 24 mg/dL (7-18); CALCIUM 8.5 MG/DL (8.5-10.1); CARBON DIOXIDE 28 MMOL/L (21-32); CHLORIDE 109 MMOL/L (98-107); CREATININE 0.5 MG/DL (0.55-1.30); SODIUM 143 MMOL/L (136-145)
--- NOTE | 2018-05-08 07:58 | General Progress Note ---
Assessment/Plan Problem List: (1) Status epilepticus ICD Codes: G40.901 - Epilepsy, unspecified, not intractable, with status epilepticus SNOMED: 728144316 (2) Encephalopathy acute ICD Codes: G93.40 - Encephalopathy, unspecified SNOMED: 10038381, 635897726 (3) Probable sepsis ICD Codes: A41.9 - Sepsis, unspecified organism SNOMED: 612076484 (4) Dementia ICD Codes: F03.90 - Unspecified dementia without behavioral disturbance SNOMED: 79202125 (5) Encephalopathy ICD Codes: G93.40 - Encephalopathy, unspecified SNOMED: 58155626 (6) Sepsis ICD Codes: A41.9 - Sepsis, unspecified organism SNOMED: 66484143 (7) Pulmonary tuberculosis ICD Codes: A15.0 - Tuberculosis of lung SNOMED: 740915221 (8) Dehydration ICD Codes: E86.0 - Dehydration SNOMED: 80659280 (9) Altered level of consciousness ICD Codes: R40.4 - Transient alteration of awareness SNOMED: 3688354 Status: stable Assessment/Plan vent support resp rx wean as able- only tolerated 20 mins PPI rx abx per ID 4 tb druga gt feeds wound care stable for dc family wants to appeal dc prognosis poor Subjective ROS Limited/Unobtainable: Yes Constitutional: Reports: malaise, weakness HEENT: Reports: no symptoms Cardiovascular: Reports: no symptoms Respiratory: Reports: shortness of breath Gastrointestinal/Abdominal: Reports: difficulty swallowing Genitourinary: Reports: no symptoms Neurologic/Psychiatric: Reports: pre-existing deficit, seizure Endocrine: Reports: no symptoms Hematologic/Lymphatic: Reports: anemia Allergies: Coded Allergies: No Known Allergies (Unverified , 01/27/17) All Systems: reviewed and negative except above Subjective stable. no events. did not tolerate wean yesterday. family wants pt to stay in the hospital to be weaned. tolerating feeds no szs Objective Last 24 Hour Vital Signs Date Time Temp Pulse Resp B/P (MAP) Pulse Ox O2 Delivery O2 Flow Rate FiO2 05/08/18 07:30 67 22 05/08/18 05:00 63 24 30 05/08/18 04:00 98.1 61 20 154/77 (102) 100 98.1 05/08/18 04:00 Mechanical Ventilator 05/08/18 04:00 30 05/08/18 04:00 61 05/08/18 03:00 60 21 30 05/08/18 01:18 74 20 30 05/08/18 00:00 Mechanical Ventilator 05/08/18 00:00 68 05/08/18 00:00 98.3 77 24 155/84 (107) 100 98.3 05/08/18 00:00 30 05/07/18 23:59 98.3 05/07/18 23:55 71 30 30 05/07/18 20:35 77 143/74 05/07/18 20:00 97.7 77 26 143/74 (97) 100 97.7 05/07/18 20:00 30 05/07/18 20:00 68 05/07/18 20:00 Mechanical Ventilator 05/07/18 19:29 T-piece 8.0 30 05/07/18 19:29 100 T-piece 8.0 30 05/07/18 17:03 68 05/07/18 17:01 66 21 30 05/07/18 16:00 97.5 68 28 155/81 (105) 100 97.5 05/07/18 16:00 Mechanical Ventilator 05/07/18 16:00 30 05/07/18 15:28 71 19 30 05/07/18 14:23 67 05/07/18 13:28 66 32 05/07/18 12:00 97.7 68 32 170/80 (110) 100 97.7 05/07/18 12:00 45 05/07/18 12:00 Mechanical Ventilator 05/07/18 11:02 100 05/07/18 10:57 66 32 05/07/18 09:30 68 05/07/18 09:19 66 22 30 05/07/18 08:21 75 149/86 05/07/18 08:00 97.9 66 22 147/73 (97) 100 97.9 05/07/18 08:00 30 05/07/18 08:00 Mechanical Ventilator 05/07/18 08:00 98.1 75 28 149/86 (107) 100 98.1 Intake and Output 05/07/18 05/08/18 19:00 07:00 Intake Total 1570 ml 720 ml Output Total 1900 ml 1800 ml Balance -330 ml -1080 ml Free Water 30 ml 60 ml IV Total 1000 ml Tube Feeding 540 ml 660 ml Output Urine Total 1900 ml 1800 ml # Bowel Movements 1 2 Laboratory Tests 05/07/18 12:23: Arterial Blood pH 7.490H, Arterial Blood Partial Pressure CO2 32.9L, Arterial Blood Partial Pressure O2 135.6H, Arterial Blood HCO3 25.0, Arterial Blood Oxygen Saturation 98.3, Arterial Blood Base Excess 2.0, Derek Test Positive 05/08/18 04:00: White Blood Count 3.9L, Red Blood Count 3.70L, Hemoglobin 9.2L, Hematocrit 28.5L , Mean Corpuscular Volume 77L, Mean Corpuscular Hemoglobin 24.9L, Mean Corpuscular Hemoglobin Concent 32.4, Red Cell Distribution Width 17.6H, Platelet Count 261, Mean Platelet Volume 5.1L, Neutrophils (%) (Auto) 58.8, Lymphocytes (%) (Auto) 19.3L, Monocytes (%) (Auto) 18.3H, Eosinophils (%) (Auto ) 2.3, Basophils (%) (Auto) 1.4, Sodium Level 143, Potassium Level 4.0, Chloride Level 109H, Carbon Dioxide Level 28, Anion Gap 6, Blood Urea Nitrogen 24H, Creatinine 0.5L, Estimat Glomerular Filtration Rate , Glucose Level 112H, Calcium Level 8.5, Total Bilirubin 0.6, Aspartate Amino Transf (AST/SGOT) 163H, Alanine Aminotransferase (ALT/SGPT) 58, Alkaline Phosphatase 376H, Total Protein 6.0L, Albumin 1.5L, Globulin 4.5, Albumin/Globulin Ratio 0.3L Height (Feet): 5 Height (Inches): 7.00 Weight (Pounds): 143 Objective General Appearance: WD/WN, cachetic, thin Neck: supple Cardiovascular: tachycardia Respiratory/Chest: rhonchi - bilaterally Abdomen: normal bowel sounds, non tender, soft, no organomegaly Edema: no edema noted Arm (L), no edema noted Arm (R), no edema noted Leg (L), no edema noted Leg (R), no edema noted Pedal (L), no edema noted Pedal (R), no edema noted Generalized Jarrod Vásquez MD May 08, 2018 07:58
[2018-05-08 08:00] VITALS: BP 156/80
--- NOTE | 2018-05-08 08:41 | Pulmonology Progress Note ---
Assessment/Plan Assessment/Plan IMPRESSION respiratory failure possible sepsis chronic encephalopathy trach debility hypoxemia htn metabolic acidosis ho hypertension ho seizures abnormal imaging PLAN reviewed care respiratory care on full support vent support and wean to off as able elevate head and monitor has been tolerating CPAP supportive care as outlined monitor acid base and intervene suction PRN periodic imaging for change; noted infiltrate dc planning to snf follow clinically for change and monitor oxygen as needed monitor hemodynamics and adjust prognosis guarded at present fully dependent medications/laboratory data/nursing notes reviewed in detail note reviewed and edited care discussed with RN and RT Subjective ROS Limited/Unobtainable: Yes Allergies: Coded Allergies: No Known Allergies (Unverified , 01/27/17) Subjective care reviewed on vent full support in JOSESITO comfortable at present hemodynamics noted Objective Last 24 Hour Vital Signs Date Time Temp Pulse Resp B/P (MAP) Pulse Ox O2 Delivery O2 Flow Rate FiO2 05/08/18 08:31 68 05/08/18 07:30 67 22 05/08/18 05:00 63 24 30 05/08/18 04:00 98.1 61 20 154/77 (102) 100 98.1 05/08/18 04:00 Mechanical Ventilator 05/08/18 04:00 30 05/08/18 04:00 61 05/08/18 03:00 60 21 30 05/08/18 01:18 74 20 30 05/08/18 00:00 Mechanical Ventilator 05/08/18 00:00 68 05/08/18 00:00 98.3 77 24 155/84 (107) 100 98.3 05/08/18 00:00 30 05/07/18 23:59 98.3 05/07/18 23:55 71 30 30 05/07/18 20:35 77 143/74 05/07/18 20:00 97.7 77 26 143/74 (97) 100 97.7 05/07/18 20:00 30 05/07/18 20:00 68 05/07/18 20:00 Mechanical Ventilator 05/07/18 19:29 T-piece 8.0 30 05/07/18 19:29 100 T-piece 8.0 30 05/07/18 17:03 68 05/07/18 17:01 66 21 30 05/07/18 16:00 97.5 68 28 155/81 (105) 100 97.5 05/07/18 16:00 Mechanical Ventilator 05/07/18 16:00 30 05/07/18 15:28 71 19 30 05/07/18 14:23 67 05/07/18 13:28 66 32 05/07/18 12:00 97.7 68 32 170/80 (110) 100 97.7 05/07/18 12:00 45 05/07/18 12:00 Mechanical Ventilator 05/07/18 11:02 100 05/07/18 10:57 66 32 05/07/18 09:30 68 05/07/18 09:19 66 22 30 Intake and Output 05/07/18 05/08/18 19:00 07:00 Intake Total 1570 ml 720 ml Output Total 1900 ml 1800 ml Balance -330 ml -1080 ml Free Water 30 ml 60 ml IV Total 1000 ml Tube Feeding 540 ml 660 ml Output Urine Total 1900 ml 1800 ml # Bowel Movements 1 2 Objective WDWN NAD poorly responsive moderate breath sounds bilaterally with occasional rhonchi [id number] without MRG NABS nontender no HSM; gt no CCE cachectic poor response to pain skin noted comfortable at present reviewed and edited Microbiology Date/Time Source Procedure Growth Status 05/05/18 11:05 Blood Blood Culture - Preliminary NO GROWTH AFTER 48 HOURS Resulted Laboratory Tests 05/07/18 12:23: Arterial Blood pH 7.490H, Arterial Blood Partial Pressure CO2 32.9L, Arterial Blood Partial Pressure O2 135.6H, Arterial Blood HCO3 25.0, Arterial Blood Oxygen Saturation 98.3, Arterial Blood Base Excess 2.0, Derek Test Positive 05/08/18 04:00: White Blood Count 3.9L, Red Blood Count 3.70L, Hemoglobin 9.2L, Hematocrit 28.5L , Mean Corpuscular Volume 77L, Mean Corpuscular Hemoglobin 24.9L, Mean Corpuscular Hemoglobin Concent 32.4, Red Cell Distribution Width 17.6H, Platelet Count 261, Mean Platelet Volume 5.1L, Neutrophils (%) (Auto) 58.8, Lymphocytes (%) (Auto) 19.3L, Monocytes (%) (Auto) 18.3H, Eosinophils (%) (Auto ) 2.3, Basophils (%) (Auto) 1.4, Sodium Level 143, Potassium Level 4.0, Chloride Level 109H, Carbon Dioxide Level 28, Anion Gap 6, Blood Urea Nitrogen 24H, Creatinine 0.5L, Estimat Glomerular Filtration Rate , Glucose Level 112H, Calcium Level 8.5, Total Bilirubin 0.6, Aspartate Amino Transf (AST/SGOT) 163H, Alanine Aminotransferase (ALT/SGPT) 58, Alkaline Phosphatase 376H, Total Protein 6.0L, Albumin 1.5L, Globulin 4.5, Albumin/Globulin Ratio 0.3L 05/08/18 08:15: Arterial Blood pH 7.480H, Arterial Blood Partial Pressure CO2 34.7L, Arterial Blood Partial Pressure O2 149.5H, Arterial Blood HCO3 25.3, Arterial Blood Oxygen Saturation 98.4, Arterial Blood Base Excess 1.9, Derek Test Positive Current Medications Medications (Trade) Dose Ordered Sig/Iram Route PRN Reason Start Time Stop Time Status Last Admin Dose Admin Acetaminophen (Tylenol) 650 mg Q4H PRN ORAL Fever/Headache/Mild Pain 05/02/18 18:30 05/26/18 18:29 05/07/18 23:29 Artificial Tears (Akwa-Tears) 2 drop FIVE TIMES A DAY PRN BOTH EYES Dry Eyes 05/02/18 19:00 05/31/18 11:44 05/06/18 08:32 Atorvastatin Calcium (Lipitor) 10 mg BEDTIME GT 05/02/18 21:00 05/28/18 20:59 05/07/18 20:35 Ceftriaxone Sodium 1 gm/ Dextrose 55 ml @ 110 mls/hr DAILY IVPB 05/03/18 09:00 05/10/18 23:59 05/07/18 08:14 Chlorhexidine Gluconate (Letha-Hex 2%) 1 applic DAILY@2000 TOPIC 05/02/18 20:00 05/31/18 19:59 05/07/18 20:35 Clonidine HCl (Catapres Tab) 0.1 mg Q4H PRN ORAL SBP >160 05/02/18 19:00 05/28/18 10:59 Docusate Sodium (Colace) 100 mg DAILY ORAL 05/03/18 09:00 05/27/18 08:59 05/07/18 08:14 Ethambutol HCl (Myambutol) 800 mg DAILY ORAL 05/03/18 09:00 05/27/18 08:59 05/07/18 08:16 Fluconazole (Diflucan) 100 mg DAILY ORAL 05/04/18 09:00 05/11/18 08:59 05/07/18 08:16 Hydralazine HCl (Apresoline) 10 mg Q4H PRN IV SBP >160 05/02/18 18:18 05/28/18 18:17 Isoniazid (Inh) 300 mg DAILY ORAL 05/03/18 09:00 05/27/18 08:59 05/07/18 08:15 Lansoprazole (Prevacid) 30 mg Q12HR ORAL 05/05/18 21:00 06/04/18 20:59 05/07/18 20:35 Levetiracetam 750 mg/Dextrose 102.5 ml @ 440 mls/hr Q12HR IV 05/02/18 21:00 05/29/18 00:59 05/07/18 20:34 Metoprolol Tartrate (Lopressor) 50 mg Q12HR GT 05/02/18 21:00 05/28/18 20:59 05/07/18 20:35 Multivitamins Therapeutic (Therapeutic Multivitamin) 1 ea DAILY ORAL 05/03/18 09:00 05/27/18 08:59 05/07/18 08:15 Ondansetron HCl (Zofran) 4 mg Q6H PRN IVP Nausea & Vomiting 05/02/18 18:19 05/28/18 18:18 Pyrazinamide (Pza) 1,000 mg DAILY ORAL 05/03/18 09:00 05/28/18 08:59 05/07/18 08:16 Pyridoxine HCl (Vitamin B6) 50 mg DAILY ORAL 05/03/18 09:00 05/27/18 08:59 05/07/18 08:16 Rifampin (Rifadin) 600 mg DAILY ORAL 05/03/18 09:00 05/27/18 08:59 05/07/18 08:15 Sennosides (Senokot) 2 tab BIDPRN PRN GT Constipation 05/02/18 18:20 05/27/18 18:19 Tamsulosin HCl (Flomax) 0.4 mg BEDTIME ORAL 05/02/18 21:00 05/27/18 20:59 05/07/18 20:35 Nakul Cisse MD May 08, 2018 08:41
[2018-05-08] MEDS: levETIRAcetam 750 MG in D5W 95 ML IV SCH ×2 (08:57→21:26)
[2018-05-08] MEDS: cefTRIAXone 1 GM in D5W 55 ML IVPB SCH (08:57)
[2018-05-08] MEDS: Docusate 100mg/10ml Liq ORAL SCH (08:58)
[2018-05-08] MEDS: Isoniazid 300mg tab ORAL SCH (09:00)
[2018-05-08] MEDS: Fluconazole 100mg tab ORAL SCH (09:00)
[2018-05-08] MEDS: Pyridoxine 50mg tab ORAL SCH (09:02)
[2018-05-08] MEDS: Multivitamin w/Minerals tab ORAL SCH (09:03)
[2018-05-08] MEDS: Metoprolol Tartrate 50mg tab GT SCH ×2 (09:04→21:26)
--- NOTE | 2018-05-08 10:15 | Progress Note ---
DATE: 05/07/2018 CARDIOLOGY PROGRESS NOTE SUBJECTIVE: The patient remains on ventilator support. Noncommunicative. Monitored rhythm sinus. OBJECTIVE: VITAL SIGNS: Blood pressure 147/71, heart rate 64, respiratory rate 21. LUNGS: Coarse breath sounds. Thin trach secretions. HEART: Regular rhythm and rate. Normal S1, S2. ABDOMEN: Soft. EXTREMITIES: Trace edema. LABORATORY DATA: ABG, pH 7.49, pCO2 32, pO2 136. IMPRESSION: 1. Acute on chronic diastolic congestive heart failure, clinically compensated. 2. Respiratory failure with tracheostomy. 3. Healthcare-acquired pneumonia. 4. Sepsis with shock, recovered. 5. Hypomagnesemia. 6. Severe protein-calorie malnutrition. PLAN: 1. Antimicrobials. 2. Ventilator support. 3. Replace electrolytes as needed. 4. Nutritional support and protein supplement by feeding tube. 5. Diuresis based on clinical parameters. 6. Continue beta-blockade. Jones Arauz M.D. DR: Shabbir JOB#: [id number] CC:
--- NOTE | 2018-05-08 10:53 | Infectious Diseases Prog Note ---
Assessment/Plan Assessment/Plan antibiotics : ceftriaxone, fluconazole, isoniazid, rifampin, pyrazinamide, ethambutol, pyridoxine A 1. pulmonary TB 2. e.coli pneumonia 3. fungal UTI 4. respiratory failure 5. encephalopathy P 1. continue isoniazid, rifampin, pyrazinamide, ethambutol, pyridoxine 2. continue ceftriaxone 3 more days 3. continue fluconazole 1 more day 4. will follow up cultures Subjective ROS Limited/Unobtainable: Yes Allergies: Coded Allergies: No Known Allergies (Unverified , 01/27/17) Objective Vital Signs Last 24 Hour Vital Signs Date Time Temp Pulse Resp B/P (MAP) Pulse Ox O2 Delivery O2 Flow Rate FiO2 05/08/18 09:50 99 05/08/18 09:04 68 156/80 05/08/18 08:31 68 05/08/18 08:30 71 30 30 05/08/18 08:00 Mechanical Ventilator 05/08/18 08:00 98.5 71 19 156/80 (105) 100 98.5 05/08/18 08:00 30 05/08/18 07:30 67 22 05/08/18 05:00 63 24 30 05/08/18 04:00 98.1 61 20 154/77 (102) 100 98.1 05/08/18 04:00 Mechanical Ventilator 05/08/18 04:00 30 05/08/18 04:00 61 05/08/18 03:00 60 21 30 05/08/18 01:18 74 20 30 05/08/18 00:00 Mechanical Ventilator 05/08/18 00:00 68 05/08/18 00:00 98.3 77 24 155/84 (107) 100 98.3 05/08/18 00:00 30 05/07/18 23:59 98.3 05/07/18 23:55 71 30 30 05/07/18 20:35 77 143/74 05/07/18 20:00 97.7 77 26 143/74 (97) 100 97.7 05/07/18 20:00 30 05/07/18 20:00 68 05/07/18 20:00 Mechanical Ventilator 05/07/18 19:29 T-piece 8.0 30 05/07/18 19:29 100 T-piece 8.0 30 05/07/18 17:03 68 05/07/18 17:01 66 21 30 05/07/18 16:00 97.5 68 28 155/81 (105) 100 97.5 05/07/18 16:00 Mechanical Ventilator 05/07/18 16:00 30 05/07/18 15:28 71 19 30 05/07/18 14:23 67 05/07/18 13:28 66 32 05/07/18 12:00 97.7 68 32 170/80 (110) 100 97.7 05/07/18 12:00 45 05/07/18 12:00 Mechanical Ventilator 05/07/18 11:02 100 05/07/18 10:57 66 32 Height (Feet): 5 Height (Inches): 7.00 Weight (Pounds): 143 HEENT: status post trach Respiratory/Chest: lungs clear Cardiovascular: normal rate, regular rhythm, no gallop/murmur Abdomen: soft, non tender, other - GT Extremities: no edema, other - left arm PICC Microbiology Date/Time Source Procedure Growth Status 05/05/18 11:05 Blood Blood Culture - Preliminary NO GROWTH AFTER 48 HOURS Resulted Laboratory Tests Test 05/07/18 12:23 05/08/18 04:00 05/08/18 08:15 Arterial Blood pH 7.490 (7.350-7.450) 7.480 (7.350-7.450) Arterial Blood Partial Pressure CO2 32.9 mmHg (35.0-45.0) L 34.7 mmHg (35.0-45.0) L Arterial Blood Partial Pressure O2 135.6 mmHg (75.0-100.0) H 149.5 mmHg (75.0-100.0) H Arterial Blood HCO3 25.0 mmol/L (22.0-26.0) 25.3 mmol/L (22.0-26.0) Arterial Blood Oxygen Saturation 98.3 % (95-100) 98.4 % (95-100) Arterial Blood Base Excess 2.0 (-2-2) 1.9 (-2-2) Derek Test Positive Positive White Blood Count 3.9 K/UL (4.8-10.8) L Red Blood Count 3.70 M/UL (4.70-6.10) L Hemoglobin 9.2 G/DL (14.2-18.0) L Hematocrit 28.5 % (42.0-52.0) L Mean Corpuscular Volume 77 FL (80-99) L Mean Corpuscular Hemoglobin 24.9 PG (27.0-31.0) L Mean Corpuscular Hemoglobin Concent 32.4 G/DL (32.0-36.0) Red Cell Distribution Width 17.6 % (11.6-14.8) H Platelet Count 261 K/UL (150-450) Mean Platelet Volume 5.1 FL (6.5-10.1) L Neutrophils (%) (Auto) 58.8 % (45.0-75.0) Lymphocytes (%) (Auto) 19.3 % (20.0-45.0) L Monocytes (%) (Auto) 18.3 % (1.0-10.0) H Eosinophils (%) (Auto) 2.3 % (0.0-3.0) Basophils (%) (Auto) 1.4 % (0.0-2.0) Sodium Level 143 MMOL/L (136-145) Potassium Level 4.0 MMOL/L (3.5-5.1) Chloride Level 109 MMOL/L (98-107) H Carbon Dioxide Level 28 MMOL/L (21-32) Anion Gap 6 mmol/L (5-15) Blood Urea Nitrogen 24 mg/dL (7-18) H Creatinine 0.5 MG/DL (0.55-1.30) L Estimat Glomerular Filtration Rate mL/min (>60) Glucose Level 112 MG/DL (74-106) H Calcium Level 8.5 MG/DL (8.5-10.1) Total Bilirubin 0.6 MG/DL (0.2-1.0) Aspartate Amino Transf (AST/SGOT) 163 U/L (15-37) H Alanine Aminotransferase (ALT/SGPT) 58 U/L (12-78) Alkaline Phosphatase 376 U/L (46-116) H Total Protein 6.0 G/DL (6.4-8.2) L Albumin 1.5 G/DL (3.4-5.0) L Globulin 4.5 g/dL Albumin/Globulin Ratio 0.3 (1.0-2.7) L Current Medications Medications (Trade) Dose Ordered Sig/Iram Route PRN Reason Start Time Stop Time Status Last Admin Dose Admin Acetaminophen (Tylenol) 650 mg Q4H PRN ORAL Fever/Headache/Mild Pain 05/02/18 18:30 05/26/18 18:29 05/07/18 23:29 Artificial Tears (Akwa-Tears) 2 drop FIVE TIMES A DAY PRN BOTH EYES Dry Eyes 05/02/18 19:00 05/31/18 11:44 05/06/18 08:32 Atorvastatin Calcium (Lipitor) 10 mg BEDTIME GT 05/02/18 21:00 05/28/18 20:59 05/07/18 20:35 Ceftriaxone Sodium 1 gm/ Dextrose 55 ml @ 110 mls/hr DAILY IVPB 05/03/18 09:00 05/10/18 23:59 05/08/18 08:57 Chlorhexidine Gluconate (Letha-Hex 2%) 1 applic DAILY@2000 TOPIC 05/02/18 20:00 05/31/18 19:59 05/07/18 20:35 Clonidine HCl (Catapres Tab) 0.1 mg Q4H PRN ORAL SBP >160 05/02/18 19:00 05/28/18 10:59 Docusate Sodium (Colace) 100 mg DAILY ORAL 05/03/18 09:00 05/27/18 08:59 05/08/18 08:58 Ethambutol HCl (Myambutol) 800 mg DAILY ORAL 05/03/18 09:00 05/27/18 08:59 05/08/18 09:02 Fluconazole (Diflucan) 100 mg DAILY ORAL 05/04/18 09:00 05/11/18 08:59 05/08/18 09:00 Hydralazine HCl (Apresoline) 10 mg Q4H PRN IV SBP >160 05/02/18 18:18 05/28/18 18:17 Isoniazid (Inh) 300 mg DAILY ORAL 05/03/18 09:00 05/27/18 08:59 05/08/18 09:00 Lansoprazole (Prevacid) 30 mg Q12HR ORAL 05/05/18 21:00 06/04/18 20:59 05/08/18 09:02 Levetiracetam 750 mg/Dextrose 102.5 ml @ 440 mls/hr Q12HR IV 05/02/18 21:00 05/29/18 00:59 05/08/18 08:57 Metoprolol Tartrate (Lopressor) 50 mg Q12HR GT 05/02/18 21:00 05/28/18 20:59 05/08/18 09:04 Multivitamins Therapeutic (Therapeutic Multivitamin) 1 ea DAILY ORAL 05/03/18 09:00 05/27/18 08:59 05/08/18 09:03 Ondansetron HCl (Zofran) 4 mg Q6H PRN IVP Nausea & Vomiting 05/02/18 18:19 05/28/18 18:18 Pyrazinamide (Pza) 1,000 mg DAILY ORAL 05/03/18 09:00 05/28/18 08:59 05/08/18 09:02 Pyridoxine HCl (Vitamin B6) 50 mg DAILY ORAL 05/03/18 09:00 05/27/18 08:59 05/08/18 09:02 Rifampin (Rifadin) 600 mg DAILY ORAL 05/03/18 09:00 05/27/18 08:59 05/08/18 09:00 Sennosides (Senokot) 2 tab BIDPRN PRN GT Constipation 05/02/18 18:20 05/27/18 18:19 Tamsulosin HCl (Flomax) 0.4 mg BEDTIME ORAL 05/02/18 21:00 05/27/18 20:59 05/07/18 20:35 RENÉE RICHARDSON May 08, 2018 10:53
--- NOTE | 2018-05-08 11:57 | Neurology Progress Note ---
Interim History Interim History Interim History Mr. Narvaez was sleeping when I went to see him. He could be aroused. When aroused, his eyes were open and he made eye contact. He also turned his eyes and head towards the side of vocal stimulation. He blinked to threat. He however is non verbal. He continues to be seizure-free. He continues to be non-functional. His cardio-respiratory function is stable. Review of Systems Neuro Review of Systems Unable to obtain. Objective Physical Exam Last Vital Signs Date Time Temp Pulse Resp B/P (MAP) Pulse Ox O2 Delivery O2 Flow Rate FiO2 05/08/18 10:40 77 24 30 05/08/18 09:50 99 05/08/18 09:04 156/80 05/08/18 08:00 Mechanical Ventilator 05/08/18 08:00 98.5 98.5 05/07/18 19:29 8.0 Laboratory Tests Test 05/07/18 12:23 05/08/18 04:00 05/08/18 08:15 Arterial Blood pH 7.490 (7.350-7.450) 7.480 (7.350-7.450) Arterial Blood Partial Pressure CO2 32.9 mmHg (35.0-45.0) L 34.7 mmHg (35.0-45.0) L Arterial Blood Partial Pressure O2 135.6 mmHg (75.0-100.0) H 149.5 mmHg (75.0-100.0) H Arterial Blood HCO3 25.0 mmol/L (22.0-26.0) 25.3 mmol/L (22.0-26.0) Arterial Blood Oxygen Saturation 98.3 % (95-100) 98.4 % (95-100) Arterial Blood Base Excess 2.0 (-2-2) 1.9 (-2-2) Derek Test Positive Positive White Blood Count 3.9 K/UL (4.8-10.8) L Red Blood Count 3.70 M/UL (4.70-6.10) L Hemoglobin 9.2 G/DL (14.2-18.0) L Hematocrit 28.5 % (42.0-52.0) L Mean Corpuscular Volume 77 FL (80-99) L Mean Corpuscular Hemoglobin 24.9 PG (27.0-31.0) L Mean Corpuscular Hemoglobin Concent 32.4 G/DL (32.0-36.0) Red Cell Distribution Width 17.6 % (11.6-14.8) H Platelet Count 261 K/UL (150-450) Mean Platelet Volume 5.1 FL (6.5-10.1) L Neutrophils (%) (Auto) 58.8 % (45.0-75.0) Lymphocytes (%) (Auto) 19.3 % (20.0-45.0) L Monocytes (%) (Auto) 18.3 % (1.0-10.0) H Eosinophils (%) (Auto) 2.3 % (0.0-3.0) Basophils (%) (Auto) 1.4 % (0.0-2.0) Sodium Level 143 MMOL/L (136-145) Potassium Level 4.0 MMOL/L (3.5-5.1) Chloride Level 109 MMOL/L (98-107) H Carbon Dioxide Level 28 MMOL/L (21-32) Anion Gap 6 mmol/L (5-15) Blood Urea Nitrogen 24 mg/dL (7-18) H Creatinine 0.5 MG/DL (0.55-1.30) L Estimat Glomerular Filtration Rate mL/min (>60) Glucose Level 112 MG/DL (74-106) H Calcium Level 8.5 MG/DL (8.5-10.1) Total Bilirubin 0.6 MG/DL (0.2-1.0) Aspartate Amino Transf (AST/SGOT) 163 U/L (15-37) H Alanine Aminotransferase (ALT/SGPT) 58 U/L (12-78) Alkaline Phosphatase 376 U/L (46-116) H Total Protein 6.0 G/DL (6.4-8.2) L Albumin 1.5 G/DL (3.4-5.0) L Globulin 4.5 g/dL Albumin/Globulin Ratio 0.3 (1.0-2.7) L Neurologic Exam Objective PHYSICAL EXAMINATION: GENERAL: He is a well-developed, ill-looking black gentleman, lying in bed, in no acute distress. HEAD: Normocephalic and atraumatic. EENT: Examination benign. NECK: No neck rigidity was observed. NEUROLOGICAL EXAMINATION: MENTAL STATUS EXAMINATION: When aroused, he was awake. He made eye contact. He also turned his eyes and head towards the side of vocal stimulation. He blinked to threat. He however was non verbal. SPEECH: Could not be tested. LANGUAGE: Could not be tested. CRANIAL NERVE EXAMINATION: II: He did blink to threat. III, IV & : External ocular movements were present. The pupils were 3 mm in diameter, equal, round, regular, and reactive sluggishly to light. V & VII: The corneal reflexes were present bilaterally. However, the right- sided reflex was significantly diminished compared to the left. VIII: He was able to hear and had no nystagmus. IX & X: Gag reflex was suppressed. XI: The sternocleidomastoids and trapezii functioned minimally. XII: The tongue was in the midline. MOTOR SYSTEM: The tone was increased in all four extremities with spasticity more marked on the right than on the left. Examination of muscle mass revealed generalized muscle wasting, again more marked on the right than on the left. Examination of power was impossible to perform on individual muscle groups. However, he did move all four extremities on deep pain with possibly right greater than left-sided weakness. SENSORY EXAMINATION: He responded appropriately to deep pain with less vigorous responses on the right side compared to the left. REFLEXES: Trace+ and bilaterally symmetrical at the biceps, triceps, brachioradialis. 0 at both knees and ankles. The plantar responses were extensor bilaterally. COORDINATION, STANCE & GAIT: Could not be tested. Impression/Recommendations Diagnostic Impression 1. Mr. Sagar Narveaz is a 72-year-old, [place] gentleman, of unknown handedness, who does have a past history of cerebrovascular disease with a prior stroke, pulmonary tuberculosis, chronic respiratory failure for which he has tracheostomy, and dysphagia for which he has a gastrostomy; who lives [place] [facility] where he was noted to have an alteration in his mental state in the form of increased lethargy. He was thus brought into the [facility] emergency room and following admission, he apparently spiked a fever to 103 degrees Fahrenheit followed by multiple seizures. He was cooled down, given Ativan and started on Keppra and has been seizure-free since then. 2. He was sleeping when I went to see him. He could be aroused. When aroused, his eyes were open and he made eye contact. He also turned his eyes and head towards the side of vocal stimulation. He blinked to threat. He however is non verbal. He continues to be seizure-free. He continues to be non-functional. His cardio-respiratory function is stable. 3. On neurological examination, at this time, when aroused, he was awake. He makes eye contact. He also turns his eyes and head towards the side of vocal stimulation. He blinks to threat. He however is non verbal. His corneal reflex is diminished on the right side compared to the left. 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 In addition, he responds to deep pain, less on the right than on the left. His deep tendon reflexes are globally diminished and his plantar responses are extensor bilaterally. 4. Laboratory data on my initial evaluation revealed that his WBC count is creeping up from 4.4 to 9.5. He is significantly anemic with a hemoglobin of 8.8 G. His chemistry panel reveals that his bilirubin is elevated to 1.1. His alkaline phosphatase is elevated to 367, his AST is elevated to 52. His albumin is low at 1.9. His arterial blood gas reveals a pCO2 of 29 and a pO2 of 59 with a pH of 7.43. His urinalysis reveals 2+ leukocyte esterase with 2-4 RBCs and 2-4 WBCs per high-power field. 5. The EEG done on 04/27/18 revealed a moderately severe encephalopathy and left > right hemispheric dysfunction. No inter-ictal discharges were seen. 6. The CT of the brain done on 04/30/18 revealed multiple old bilateral cerebral infarcts involving the left > right brain. 7. 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 8. His mental state is improving slowly. Recommendations 1. Continue present management. 2. Continue Keppra 750 mg q.12 hours. 3. Agree with plan to transfer to [facility]. Mercedes Coelho M.D., M.S.P.MERCEDES BERMUDEZ May 08, 2018 11:57
[2018-05-08 12:00] VITALS: BP 155/83
[2018-05-08 16:00] VITALS: BP 154/80
[2018-05-08 20:00] VITALS: BP 164/92
--- NOTE | 2018-05-08 20:54 | General Progress Note ---
Assessment/Plan Assessment/Plan Assessment - suspected early cirrhosis based on imaging - hepatitis A/B/C negative - TRISTAN negative but F-Actin (+) - ? significance - rising LFT - UGIB, resolved - Anemia - Resp failure - s/p PEG and Trach Recommendations - not good candidate for liver biopsy or for steroids - check CT abd - check AFP - would follow conservatively - continue TF Subjective Allergies: Coded Allergies: No Known Allergies (Unverified , 01/27/17) Subjective No events overnight Tolerating TF non communicative LFT rising again Objective Last 24 Hour Vital Signs Date Time Temp Pulse Resp B/P (MAP) Pulse Ox O2 Delivery O2 Flow Rate FiO2 05/08/18 20:00 30 05/08/18 19:12 64 16 30 05/08/18 17:28 60 24 30 05/08/18 16:21 64 05/08/18 16:00 30 05/08/18 16:00 Mechanical Ventilator 05/08/18 16:00 97.7 64 16 154/80 (104) 100 97.7 05/08/18 15:18 62 22 30 05/08/18 13:28 59 05/08/18 12:30 59 22 30 05/08/18 12:00 98.5 63 21 155/83 (107) 100 98.5 05/08/18 12:00 Mechanical Ventilator 05/08/18 12:00 30 05/08/18 10:40 77 24 30 05/08/18 09:50 99 05/08/18 09:04 68 156/80 05/08/18 08:31 68 05/08/18 08:30 71 30 30 05/08/18 08:00 Mechanical Ventilator 05/08/18 08:00 98.5 71 19 156/80 (105) 100 98.5 05/08/18 08:00 30 05/08/18 07:30 67 22 05/08/18 05:00 63 24 30 05/08/18 04:00 98.1 61 20 154/77 (102) 100 98.1 05/08/18 04:00 Mechanical Ventilator 05/08/18 04:00 30 05/08/18 04:00 61 05/08/18 03:00 60 21 30 05/08/18 01:18 74 20 30 05/08/18 00:00 Mechanical Ventilator 05/08/18 00:00 68 05/08/18 00:00 98.3 77 24 155/84 (107) 100 98.3 05/08/18 00:00 30 05/07/18 23:59 98.3 05/07/18 23:55 71 30 30 Intake and Output 05/07/18 05/08/18 19:00 07:00 Intake Total 1570 ml 780 ml Output Total 1900 ml 1800 ml Balance -330 ml -1020 ml Free Water 30 ml 60 ml IV Total 1000 ml Tube Feeding 540 ml 720 ml Output Urine Total 1900 ml 1800 ml # Bowel Movements 1 2 Laboratory Tests 05/08/18 04:00: White Blood Count 3.9L, Red Blood Count 3.70L, Hemoglobin 9.2L, Hematocrit 28.5L , Mean Corpuscular Volume 77L, Mean Corpuscular Hemoglobin 24.9L, Mean Corpuscular Hemoglobin Concent 32.4, Red Cell Distribution Width 17.6H, Platelet Count 261, Mean Platelet Volume 5.1L, Neutrophils (%) (Auto) 58.8, Lymphocytes (%) (Auto) 19.3L, Monocytes (%) (Auto) 18.3H, Eosinophils (%) (Auto ) 2.3, Basophils (%) (Auto) 1.4, Sodium Level 143, Potassium Level 4.0, Chloride Level 109H, Carbon Dioxide Level 28, Anion Gap 6, Blood Urea Nitrogen 24H, Creatinine 0.5L, Estimat Glomerular Filtration Rate , Glucose Level 112H, Calcium Level 8.5, Total Bilirubin 0.6, Aspartate Amino Transf (AST/SGOT) 163H, Alanine Aminotransferase (ALT/SGPT) 58, Alkaline Phosphatase 376H, Total Protein 6.0L, Albumin 1.5L, Globulin 4.5, Albumin/Globulin Ratio 0.3L 05/08/18 08:15: Arterial Blood pH 7.480H, Arterial Blood Partial Pressure CO2 34.7L, Arterial Blood Partial Pressure O2 149.5H, Arterial Blood HCO3 25.3, Arterial Blood Oxygen Saturation 98.4, Arterial Blood Base Excess 1.9, Derek Test Positive Height (Feet): 5 Height (Inches): 7.00 Weight (Pounds): 143 Objective Thin AA man non communicative NCAT (+) trach CTA RRR soft ND NT, (+) GT no edema Oli Amaya MD May 08, 2018 20:54
[2018-05-08] MEDS ORDERED: Isovue-300 100ml vial INJ PRN (21:00)
[2018-05-08] MEDS: Dyna-Hex 2% Top Sol 2oz TOPIC SCH (21:24)
[2018-05-08] MEDS: Tamsulosin 0.4mg cap ORAL SCH (21:26)
[2018-05-09] VITALS: BP 150/80
--- NOTE | 2018-05-09 02:45 | Progress Note ---
DATE: 05/08/2018 CARDIOLOGY PROGRESS NOTE SUBJECTIVE: The patient remains in the intensive care unit. Orally intubated. Mechanically ventilated. OBJECTIVE: VITAL SIGNS: Blood pressure 154/80, pulse 64, respiratory rate 16, and afebrile. Monitored rhythm sinus. Ventilated via tracheostomy. LUNGS: Coarse breath sounds. Scattered rhonchi. HEART: Regular rhythm and rate. Normal S1, S2. ABDOMEN: Soft. G-tube intact. EXTREMITIES: Trace edema. IMPRESSION: 1. Respiratory failure, tracheostomy. 2. Acute on chronic diastolic congestive heart failure, compensated. 3. Healthcare-acquired pneumonia, improved. 4. Sepsis with shock, recovered. 5. Hypertensive heart disease with slight increase in blood pressure trend. 6. Pulmonary tuberculosis, on therapy. PLAN: 1. Continue current management. 2. Continue beta-cr. 3. No diuresis presently indicated. 4. Monitor volume status and cardiorenal parameters while trending natriuretic peptide assay. 5. Stable for subacute facility from cardiovascular standpoint. Jones Arauz M.D. DR: MARCIAL JOB#: [id number] CC:
[2018-05-09 04:00] VITALS: BP 146/71
--- NOTE | 2018-05-09 06:56 | General Progress Note ---
Assessment/Plan Problem List: (1) Status epilepticus ICD Codes: G40.901 - Epilepsy, unspecified, not intractable, with status epilepticus SNOMED: 079025610 (2) Encephalopathy acute ICD Codes: G93.40 - Encephalopathy, unspecified SNOMED: 14791541, 646907119 (3) Probable sepsis ICD Codes: A41.9 - Sepsis, unspecified organism SNOMED: 815483526 (4) Dementia ICD Codes: F03.90 - Unspecified dementia without behavioral disturbance SNOMED: 72995785 (5) Encephalopathy ICD Codes: G93.40 - Encephalopathy, unspecified SNOMED: 57134830 (6) Sepsis ICD Codes: A41.9 - Sepsis, unspecified organism SNOMED: 19111889 (7) Pulmonary tuberculosis ICD Codes: A15.0 - Tuberculosis of lung SNOMED: 665043879 (8) Dehydration ICD Codes: E86.0 - Dehydration SNOMED: 51706945 (9) Altered level of consciousness ICD Codes: R40.4 - Transient alteration of awareness SNOMED: 9887669 Status: stable, progressing Assessment/Plan vent support wean as able abx per ID tb rx gt feeds wound care sz rx stable for dc family appealed. requesting that pt be weaned in the hospital. Subjective ROS Limited/Unobtainable: Yes Constitutional: Reports: malaise, weakness HEENT: Reports: no symptoms Cardiovascular: Reports: no symptoms Respiratory: Reports: no symptoms Gastrointestinal/Abdominal: Reports: difficulty swallowing Genitourinary: Reports: no symptoms Neurologic/Psychiatric: Reports: seizure Endocrine: Reports: no symptoms Hematologic/Lymphatic: Reports: anemia Allergies: Coded Allergies: No Known Allergies (Unverified , 01/27/17) All Systems: reviewed and negative except above Subjective no real change. no fever or chills. no sob on the vent. tolerating feeds. no szs noted. Objective Last 24 Hour Vital Signs Date Time Temp Pulse Resp B/P (MAP) Pulse Ox O2 Delivery O2 Flow Rate FiO2 05/09/18 05:03 58 18 30 05/09/18 04:00 30 05/09/18 04:00 57 05/09/18 04:00 97.6 55 20 146/71 (96) 100 97.6 05/09/18 04:00 Mechanical Ventilator 05/09/18 03:16 56 14 30 05/09/18 01:01 59 21 30 05/09/18 00:00 30 05/09/18 00:00 Mechanical Ventilator 05/09/18 00:00 98.9 59 20 150/80 (103) 100 98.9 05/09/18 00:00 58 05/08/18 23:28 58 20 30 05/08/18 21:31 64 20 30 05/08/18 21:26 64 165/80 05/08/18 20:00 62 05/08/18 20:00 Mechanical Ventilator 05/08/18 20:00 30 05/08/18 20:00 97.7 62 20 164/92 (116) 100 97.7 05/08/18 19:12 64 16 30 05/08/18 17:28 60 24 30 05/08/18 16:21 64 05/08/18 16:00 30 05/08/18 16:00 Mechanical Ventilator 05/08/18 16:00 97.7 64 16 154/80 (104) 100 97.7 05/08/18 15:18 62 22 30 05/08/18 13:28 59 05/08/18 12:30 59 22 30 05/08/18 12:00 98.5 63 21 155/83 (107) 100 98.5 05/08/18 12:00 Mechanical Ventilator 05/08/18 12:00 30 05/08/18 10:40 77 24 30 05/08/18 09:50 99 05/08/18 09:04 68 156/80 05/08/18 08:31 68 05/08/18 08:30 71 30 30 05/08/18 08:00 Mechanical Ventilator 05/08/18 08:00 98.5 71 19 156/80 (105) 100 98.5 05/08/18 08:00 30 05/08/18 07:30 67 22 Intake and Output 05/08/18 05/09/18 19:00 07:00 Intake Total 1390 ml 162.5 ml Output Total 1000 ml Balance 1390 ml -837.5 ml Free Water 180 ml IV Total 550 ml 102.5 ml Tube Feeding 660 ml 60 ml Output Urine Total 1000 ml # Bowel Movements 2 Laboratory Tests 05/08/18 08:15: Arterial Blood pH 7.480H, Arterial Blood Partial Pressure CO2 34.7L, Arterial Blood Partial Pressure O2 149.5H, Arterial Blood HCO3 25.3, Arterial Blood Oxygen Saturation 98.4, Arterial Blood Base Excess 1.9, Derek Test Positive Height (Feet): 5 Height (Inches): 7.00 Weight (Pounds): 143 Objective General Appearance: WD/WN, cachetic, thin Neck: supple Cardiovascular: tachycardia Respiratory/Chest: rhonchi - bilaterally Abdomen: normal bowel sounds, non tender, soft, no organomegaly Edema: no edema noted Arm (L), no edema noted Arm (R), no edema noted Leg (L), no edema noted Leg (R), no edema noted Pedal (L), no edema noted Pedal (R), no edema noted Generalized Jarrod Vásquez MD May 09, 2018 06:56
[2018-05-09 07:19] LABS: BASOPHILS % (AUTO) 0.7 % (0.0-2.0); EOSINOPHILS % (AUTO) 1.6 % (0.0-3.0); HEMATOCRIT 27.6 % (42.0-52.0); HEMOGLOBIN 8.5 G/DL (14.2-18.0); LYMPHOCYTES % (AUTO) 24.8 % (20.0-45.0); MEAN CORPUSCULAR VOLUME 78 FL (80-99); MONOCYTES % (AUTO) 14.3 % (1.0-10.0); NEUTROPHILS % (AUTO) 58.7 % (45.0-75.0); PLATELET COUNT 252 K/UL (150-450); RED BLOOD COUNT 3.53 M/UL (4.70-6.10); RED CELL DISTRIBUTION WIDTH 17.9 % (11.6-14.8); WHITE BLOOD COUNT 3.8 K/UL (4.8-10.8)
[2018-05-09 07:42] LABS: ALANINE AMINOTRANSFERASE 65 U/L (12-78); ALBUMIN 1.6 G/DL (3.4-5.0); ALBUMIN/GLOBULIN RATIO 0.4 (1.0-2.7); ALKALINE PHOSPHATASE 339 U/L (46-116); ANION GAP 4 mmol/L (5-15); ASPARTATE AMINO TRANSFERASE 159 U/L (15-37); BILIRUBIN,TOTAL 0.7 MG/DL (0.2-1.0); BLOOD UREA NITROGEN 23 mg/dL (7-18); CALCIUM 8.3 MG/DL (8.5-10.1); CARBON DIOXIDE 29 MMOL/L (21-32); CHLORIDE 107 MMOL/L (98-107); CREATININE 0.5 MG/DL (0.55-1.30); POTASSIUM 4.1 MMOL/L (3.5-5.1); SODIUM 140 MMOL/L (136-145)
[2018-05-09 08:00] VITALS: BP 139/63
--- NOTE | 2018-05-09 08:05 | Pulmonology Progress Note ---
Assessment/Plan Assessment/Plan IMPRESSION respiratory failure possible sepsis chronic encephalopathy trach debility hypoxemia htn metabolic acidosis ho hypertension ho seizures abnormal imaging PLAN reviewed care currently on AC vent support and wean to off as able elevate head and monitor has been tolerating CPAP over the past 48 hours supportive care as outlined monitor ABG PRN suction PRN periodic imaging for change; noted infiltrate dc planning to snf follow clinically for change and monitor oxygen as needed monitor hemodynamics and adjust prognosis guarded at present fully dependent at present medications/laboratory data/nursing notes reviewed in detail note reviewed and edited care discussed with RN and RT Subjective ROS Limited/Unobtainable: Yes Allergies: Coded Allergies: No Known Allergies (Unverified , 01/27/17) Subjective care reviewed on vent full support in [place] comfortable at present family concerns noted Objective Last 24 Hour Vital Signs Date Time Temp Pulse Resp B/P (MAP) Pulse Ox O2 Delivery O2 Flow Rate FiO2 05/09/18 05:03 58 18 30 05/09/18 04:00 30 05/09/18 04:00 57 05/09/18 04:00 97.6 55 20 146/71 (96) 100 97.6 05/09/18 04:00 Mechanical Ventilator 05/09/18 03:16 56 14 30 05/09/18 01:01 59 21 30 05/09/18 00:00 30 05/09/18 00:00 Mechanical Ventilator 05/09/18 00:00 98.9 59 20 150/80 (103) 100 98.9 05/09/18 00:00 58 05/08/18 23:28 58 20 30 05/08/18 21:31 64 20 30 05/08/18 21:26 64 165/80 05/08/18 20:00 62 05/08/18 20:00 Mechanical Ventilator 05/08/18 20:00 30 05/08/18 20:00 97.7 62 20 164/92 (116) 100 97.7 05/08/18 19:12 64 16 30 05/08/18 17:28 60 24 30 05/08/18 16:21 64 05/08/18 16:00 30 05/08/18 16:00 Mechanical Ventilator 05/08/18 16:00 97.7 64 16 154/80 (104) 100 97.7 05/08/18 15:18 62 22 30 05/08/18 13:28 59 05/08/18 12:30 59 22 30 05/08/18 12:00 98.5 63 21 155/83 (107) 100 98.5 05/08/18 12:00 Mechanical Ventilator 05/08/18 12:00 30 05/08/18 10:40 77 24 30 05/08/18 09:50 99 05/08/18 09:04 68 156/80 05/08/18 08:31 68 05/08/18 08:30 71 30 30 Intake and Output 05/08/18 05/09/18 19:00 07:00 Intake Total 1390 ml 162.5 ml Output Total 1000 ml Balance 1390 ml -837.5 ml Free Water 180 ml IV Total 550 ml 102.5 ml Tube Feeding 660 ml 60 ml Output Urine Total 1000 ml # Bowel Movements 2 Objective WDWN NAD poorly responsive moderate breath sounds bilaterally with scattered rhonchi [id number] without MRG NABS nontender no HSM; gt no CCE cachectic poor response to pain skin noted comfortable at present reviewed and edited Laboratory Tests 05/08/18 08:15: Arterial Blood pH 7.480H, Arterial Blood Partial Pressure CO2 34.7L, Arterial Blood Partial Pressure O2 149.5H, Arterial Blood HCO3 25.3, Arterial Blood Oxygen Saturation 98.4, Arterial Blood Base Excess 1.9, Derek Test Positive 05/09/18 03:50: White Blood Count 3.8L, Red Blood Count 3.53L, Hemoglobin 8.5L, Hematocrit 27.6L , Mean Corpuscular Volume 78L, Mean Corpuscular Hemoglobin 24.0L, Mean Corpuscular Hemoglobin Concent 30.7L, Red Cell Distribution Width 17.9H, Platelet Count 252, Mean Platelet Volume 5.4L, Neutrophils (%) (Auto) 58.7, Lymphocytes (%) (Auto) 24.8, Monocytes (%) (Auto) 14.3H, Eosinophils (%) (Auto) 1.6, Basophils (%) (Auto) 0.7, Sodium Level 140, Potassium Level 4.1, Chloride Level 107, Carbon Dioxide Level 29, Anion Gap 4L, Blood Urea Nitrogen 23H, Creatinine 0.5L, Estimat Glomerular Filtration Rate , Glucose Level 69L, Calcium Level 8.3L, Magnesium Level 1.6L, Total Bilirubin 0.7, Aspartate Amino Transf (AST/SGOT) 159H, Alanine Aminotransferase (ALT/SGPT) 65, Alkaline Phosphatase 339H, Pro-B-Type Natriuretic Peptide 956H, Total Protein 6.0L, Albumin 1.6L, Globulin 4.4, Albumin/Globulin Ratio 0.4L, Alpha Fetoprotein [ Pending] Current Medications Medications (Trade) Dose Ordered Sig/Iram Route PRN Reason Start Time Stop Time Status Last Admin Dose Admin Acetaminophen (Tylenol) 650 mg Q4H PRN ORAL Fever/Headache/Mild Pain 05/02/18 18:30 05/26/18 18:29 05/07/18 23:29 Artificial Tears (Akwa-Tears) 2 drop FIVE TIMES A DAY PRN BOTH EYES Dry Eyes 05/02/18 19:00 05/31/18 11:44 05/06/18 08:32 Atorvastatin Calcium (Lipitor) 10 mg BEDTIME GT 05/02/18 21:00 05/28/18 20:59 05/08/18 21:26 Barium Sulfate (Readi-Cat 2) 450 ml NOW PRN ORAL Radiology Procedure 05/08/18 21:00 05/10/18 20:56 Ceftriaxone Sodium 1 gm/ Dextrose 55 ml @ 110 mls/hr DAILY IVPB 05/03/18 09:00 05/10/18 23:59 05/08/18 08:57 Chlorhexidine Gluconate (Letha-Hex 2%) 1 applic DAILY@2000 TOPIC 05/02/18 20:00 05/31/18 19:59 05/08/18 21:24 Clonidine HCl (Catapres Tab) 0.1 mg Q4H PRN ORAL SBP >160 05/02/18 19:00 05/28/18 10:59 Docusate Sodium (Colace) 100 mg DAILY ORAL 05/03/18 09:00 05/27/18 08:59 05/08/18 08:58 Ethambutol HCl (Myambutol) 800 mg DAILY ORAL 05/03/18 09:00 05/27/18 08:59 05/08/18 09:02 Fluconazole (Diflucan) 100 mg DAILY ORAL 05/04/18 09:00 05/11/18 08:59 05/08/18 09:00 Hydralazine HCl (Apresoline) 10 mg Q4H PRN IV SBP >160 05/02/18 18:18 05/28/18 18:17 Iopamidol (Isovue-300 100ml) 100 ml NOW PRN INJ Radiology Procedure 05/08/18 21:00 05/10/18 20:56 Isoniazid (Inh) 300 mg DAILY ORAL 05/03/18 09:00 05/27/18 08:59 05/08/18 09:00 Lansoprazole (Prevacid) 30 mg Q12HR ORAL 05/05/18 21:00 06/04/18 20:59 05/08/18 21:27 Levetiracetam 750 mg/Dextrose 102.5 ml @ 440 mls/hr Q12HR IV 05/02/18 21:00 05/29/18 00:59 05/08/18 21:26 Metoprolol Tartrate (Lopressor) 50 mg Q12HR GT 05/02/18 21:00 05/28/18 20:59 05/08/18 21:26 Multivitamins Therapeutic (Therapeutic Multivitamin) 1 ea DAILY ORAL 05/03/18 09:00 05/27/18 08:59 05/08/18 09:03 Ondansetron HCl (Zofran) 4 mg Q6H PRN IVP Nausea & Vomiting 05/02/18 18:19 05/28/18 18:18 Pyrazinamide (Pza) 1,000 mg DAILY ORAL 05/03/18 09:00 05/28/18 08:59 05/08/18 09:02 Pyridoxine HCl (Vitamin B6) 50 mg DAILY ORAL 05/03/18 09:00 05/27/18 08:59 05/08/18 09:02 Rifampin (Rifadin) 600 mg DAILY ORAL 05/03/18 09:00 05/27/18 08:59 05/08/18 09:00 Sennosides (Senokot) 2 tab BIDPRN PRN GT Constipation 05/02/18 18:20 05/27/18 18:19 Tamsulosin HCl (Flomax) 0.4 mg BEDTIME ORAL 05/02/18 21:00 05/27/18 20:59 05/08/18 21:26 Nakul Cisse MD May 09, 2018 08:05
[2018-05-09] MEDS: cefTRIAXone 1 GM in D5W 55 ML IVPB SCH (08:30)
[2018-05-09] MEDS: Docusate 100mg/10ml Liq ORAL SCH (08:40)
[2018-05-09] MEDS: Pyridoxine 50mg tab ORAL SCH (08:40)
[2018-05-09] MEDS: Multivitamin w/Minerals tab ORAL SCH (08:41)
[2018-05-09] MEDS: Metoprolol Tartrate 50mg tab GT SCH ×2 (08:41→22:02)
[2018-05-09] MEDS: Fluconazole 100mg tab ORAL SCH (08:41)
[2018-05-09] MEDS: Isoniazid 300mg tab ORAL SCH (08:41)
[2018-05-09] MEDS: levETIRAcetam 750 MG in D5W 95 ML IV SCH ×2 (09:29→22:02)
--- NOTE | 2018-05-09 10:55 | Infectious Diseases Prog Note ---
Assessment/Plan Assessment/Plan antibiotics : ceftriaxone, fluconazole, isoniazid, rifampin, pyrazinamide, ethambutol, pyridoxine A 1. pulmonary TB 2. e.coli pneumonia 3. fungal UTI s/p rx 4. respiratory failure 5. encephalopathy 6. increased LFT P 1. continue isoniazid, rifampin, pyrazinamide, ethambutol, pyridoxine 2. continue ceftriaxone 2 more days 3. d/c fluconazole 4. will follow up cultures Subjective ROS Limited/Unobtainable: Yes Allergies: Coded Allergies: No Known Allergies (Unverified , 01/27/17) Objective Vital Signs Last 24 Hour Vital Signs Date Time Temp Pulse Resp B/P (MAP) Pulse Ox O2 Delivery O2 Flow Rate FiO2 05/09/18 08:41 61 139/63 05/09/18 08:00 30 05/09/18 08:00 Mechanical Ventilator 05/09/18 08:00 98.6 61 21 139/63 (88) 93 98.6 05/09/18 08:00 63 05/09/18 05:03 58 18 30 05/09/18 04:00 30 05/09/18 04:00 57 05/09/18 04:00 97.6 55 20 146/71 (96) 100 97.6 05/09/18 04:00 Mechanical Ventilator 05/09/18 03:16 56 14 30 05/09/18 01:01 59 21 30 05/09/18 00:00 30 05/09/18 00:00 Mechanical Ventilator 05/09/18 00:00 98.9 59 20 150/80 (103) 100 98.9 05/09/18 00:00 58 05/08/18 23:28 58 20 30 05/08/18 21:31 64 20 30 05/08/18 21:26 64 165/80 05/08/18 20:00 62 05/08/18 20:00 Mechanical Ventilator 05/08/18 20:00 30 05/08/18 20:00 97.7 62 20 164/92 (116) 100 97.7 05/08/18 19:12 64 16 30 05/08/18 17:28 60 24 30 05/08/18 16:21 64 05/08/18 16:00 30 05/08/18 16:00 Mechanical Ventilator 05/08/18 16:00 97.7 64 16 154/80 (104) 100 97.7 05/08/18 15:18 62 22 30 05/08/18 13:28 59 05/08/18 12:30 59 22 30 05/08/18 12:00 98.5 63 21 155/83 (107) 100 98.5 05/08/18 12:00 Mechanical Ventilator 05/08/18 12:00 30 Height (Feet): 5 Height (Inches): 7.00 Weight (Pounds): 143 HEENT: status post trach Respiratory/Chest: lungs clear Cardiovascular: normal rate, regular rhythm, no gallop/murmur Abdomen: soft, non tender, other - GT Extremities: no edema, other - left arm PICC Laboratory Tests Test 05/09/18 03:50 White Blood Count 3.8 K/UL (4.8-10.8) L Red Blood Count 3.53 M/UL (4.70-6.10) L Hemoglobin 8.5 G/DL (14.2-18.0) L Hematocrit 27.6 % (42.0-52.0) L Mean Corpuscular Volume 78 FL (80-99) L Mean Corpuscular Hemoglobin 24.0 PG (27.0-31.0) L Mean Corpuscular Hemoglobin Concent 30.7 G/DL (32.0-36.0) L Red Cell Distribution Width 17.9 % (11.6-14.8) H Platelet Count 252 K/UL (150-450) Mean Platelet Volume 5.4 FL (6.5-10.1) L Neutrophils (%) (Auto) 58.7 % (45.0-75.0) Lymphocytes (%) (Auto) 24.8 % (20.0-45.0) Monocytes (%) (Auto) 14.3 % (1.0-10.0) H Eosinophils (%) (Auto) 1.6 % (0.0-3.0) Basophils (%) (Auto) 0.7 % (0.0-2.0) Sodium Level 140 MMOL/L (136-145) Potassium Level 4.1 MMOL/L (3.5-5.1) Chloride Level 107 MMOL/L (98-107) Carbon Dioxide Level 29 MMOL/L (21-32) Anion Gap 4 mmol/L (5-15) L Blood Urea Nitrogen 23 mg/dL (7-18) H Creatinine 0.5 MG/DL (0.55-1.30) L Estimat Glomerular Filtration Rate mL/min (>60) Glucose Level 69 MG/DL (74-106) L Calcium Level 8.3 MG/DL (8.5-10.1) L Magnesium Level 1.6 MG/DL (1.8-2.4) L Total Bilirubin 0.7 MG/DL (0.2-1.0) Aspartate Amino Transf (AST/SGOT) 159 U/L (15-37) H Alanine Aminotransferase (ALT/SGPT) 65 U/L (12-78) Alkaline Phosphatase 339 U/L (46-116) H Pro-B-Type Natriuretic Peptide 956 pg/mL (0-125) H Total Protein 6.0 G/DL (6.4-8.2) L Albumin 1.6 G/DL (3.4-5.0) L Globulin 4.4 g/dL Albumin/Globulin Ratio 0.4 (1.0-2.7) L Alpha Fetoprotein Pending Current Medications Medications (Trade) Dose Ordered Sig/Iram Route PRN Reason Start Time Stop Time Status Last Admin Dose Admin Acetaminophen (Tylenol) 650 mg Q4H PRN ORAL Fever/Headache/Mild Pain 05/02/18 18:30 05/26/18 18:29 05/07/18 23:29 Artificial Tears (Akwa-Tears) 2 drop FIVE TIMES A DAY PRN BOTH EYES Dry Eyes 05/02/18 19:00 05/31/18 11:44 05/06/18 08:32 Atorvastatin Calcium (Lipitor) 10 mg BEDTIME GT 05/02/18 21:00 05/28/18 20:59 05/08/18 21:26 Barium Sulfate (Readi-Cat 2) 450 ml NOW PRN ORAL Radiology Procedure 05/08/18 21:00 05/10/18 20:56 Ceftriaxone Sodium 1 gm/ Dextrose 55 ml @ 110 mls/hr DAILY IVPB 05/03/18 09:00 05/10/18 23:59 05/09/18 08:30 Chlorhexidine Gluconate (Letha-Hex 2%) 1 applic DAILY@2000 TOPIC 05/02/18 20:00 05/31/18 19:59 05/08/18 21:24 Clonidine HCl (Catapres Tab) 0.1 mg Q4H PRN ORAL SBP >160 05/02/18 19:00 05/28/18 10:59 Docusate Sodium (Colace) 100 mg DAILY ORAL 05/03/18 09:00 05/27/18 08:59 05/09/18 08:40 Ethambutol HCl (Myambutol) 800 mg DAILY ORAL 05/03/18 09:00 05/27/18 08:59 05/09/18 08:42 Fluconazole (Diflucan) 100 mg DAILY ORAL 05/04/18 09:00 05/11/18 08:59 05/09/18 08:41 Hydralazine HCl (Apresoline) 10 mg Q4H PRN IV SBP >160 05/02/18 18:18 05/28/18 18:17 Iopamidol (Isovue-300 100ml) 100 ml NOW PRN INJ Radiology Procedure 05/08/18 21:00 05/10/18 20:56 Isoniazid (Inh) 300 mg DAILY ORAL 05/03/18 09:00 05/27/18 08:59 05/09/18 08:41 Lansoprazole (Prevacid) 30 mg Q12HR ORAL 05/05/18 21:00 06/04/18 20:59 05/09/18 08:40 Levetiracetam 750 mg/Dextrose 102.5 ml @ 440 mls/hr Q12HR IV 05/02/18 21:00 05/29/18 00:59 05/09/18 09:29 Metoprolol Tartrate (Lopressor) 50 mg Q12HR GT 05/02/18 21:00 05/28/18 20:59 05/09/18 08:41 Multivitamins Therapeutic (Therapeutic Multivitamin) 1 ea DAILY ORAL 05/03/18 09:00 05/27/18 08:59 05/09/18 08:41 Ondansetron HCl (Zofran) 4 mg Q6H PRN IVP Nausea & Vomiting 05/02/18 18:19 05/28/18 18:18 Pyrazinamide (Pza) 1,000 mg DAILY ORAL 05/03/18 09:00 05/28/18 08:59 05/09/18 08:40 Pyridoxine HCl (Vitamin B6) 50 mg DAILY ORAL 05/03/18 09:00 05/27/18 08:59 05/09/18 08:40 Rifampin (Rifadin) 600 mg DAILY ORAL 05/03/18 09:00 05/27/18 08:59 05/09/18 08:40 Sennosides (Senokot) 2 tab BIDPRN PRN GT Constipation 05/02/18 18:20 05/27/18 18:19 Tamsulosin HCl (Flomax) 0.4 mg BEDTIME ORAL 05/02/18 21:00 05/27/18 20:59 05/08/18 21:26 RENÉE RICHARDSON May 09, 2018 10:55
[2018-05-09 12:00] VITALS: BP 136/83
--- NOTE | 2018-05-09 15:34 | Neurology Progress Note ---
Interim History Interim History Interim History Mr. Narvaez was sleeping when I went to see him. He could be aroused. When aroused, his eyes were open but he made very brief eye contact. He also turned his eyes and head towards the side of vocal stimulation. He blinked to threat. He was non verbal. He continues to be seizure-free. He continues to be non-functional. His cardio-respiratory function is stable. Review of Systems Neuro Review of Systems Unable to obtain. Objective Physical Exam Last Vital Signs Date Time Temp Pulse Resp B/P (MAP) Pulse Ox O2 Delivery O2 Flow Rate FiO2 05/09/18 12:00 98.1 76 20 136/83 (100) 100 98.1 05/09/18 12:00 8.0 30 05/09/18 12:00 T-piece Laboratory Tests Test 05/09/18 03:50 White Blood Count 3.8 K/UL (4.8-10.8) L Red Blood Count 3.53 M/UL (4.70-6.10) L Hemoglobin 8.5 G/DL (14.2-18.0) L Hematocrit 27.6 % (42.0-52.0) L Mean Corpuscular Volume 78 FL (80-99) L Mean Corpuscular Hemoglobin 24.0 PG (27.0-31.0) L Mean Corpuscular Hemoglobin Concent 30.7 G/DL (32.0-36.0) L Red Cell Distribution Width 17.9 % (11.6-14.8) H Platelet Count 252 K/UL (150-450) Mean Platelet Volume 5.4 FL (6.5-10.1) L Neutrophils (%) (Auto) 58.7 % (45.0-75.0) Lymphocytes (%) (Auto) 24.8 % (20.0-45.0) Monocytes (%) (Auto) 14.3 % (1.0-10.0) H Eosinophils (%) (Auto) 1.6 % (0.0-3.0) Basophils (%) (Auto) 0.7 % (0.0-2.0) Sodium Level 140 MMOL/L (136-145) Potassium Level 4.1 MMOL/L (3.5-5.1) Chloride Level 107 MMOL/L (98-107) Carbon Dioxide Level 29 MMOL/L (21-32) Anion Gap 4 mmol/L (5-15) L Blood Urea Nitrogen 23 mg/dL (7-18) H Creatinine 0.5 MG/DL (0.55-1.30) L Estimat Glomerular Filtration Rate mL/min (>60) Glucose Level 69 MG/DL (74-106) L Calcium Level 8.3 MG/DL (8.5-10.1) L Magnesium Level 1.6 MG/DL (1.8-2.4) L Total Bilirubin 0.7 MG/DL (0.2-1.0) Aspartate Amino Transf (AST/SGOT) 159 U/L (15-37) H Alanine Aminotransferase (ALT/SGPT) 65 U/L (12-78) Alkaline Phosphatase 339 U/L (46-116) H Pro-B-Type Natriuretic Peptide 956 pg/mL (0-125) H Total Protein 6.0 G/DL (6.4-8.2) L Albumin 1.6 G/DL (3.4-5.0) L Globulin 4.4 g/dL Albumin/Globulin Ratio 0.4 (1.0-2.7) L Alpha Fetoprotein Pending Neurologic Exam Objective PHYSICAL EXAMINATION: GENERAL: He is a well-developed, ill-looking black gentleman, lying in bed, in no acute distress. HEAD: Normocephalic and atraumatic. EENT: Examination benign. NECK: No neck rigidity was observed. NEUROLOGICAL EXAMINATION: MENTAL STATUS EXAMINATION: When aroused, he was awake. He made brief eye contact. He also turned his eyes and head towards the side of vocal stimulation. He blinked to threat. He however was non verbal. SPEECH: Could not be tested. LANGUAGE: Could not be tested. CRANIAL NERVE EXAMINATION: II: He did blink to threat. III, IV & : External ocular movements were present. The pupils were 3 mm in diameter, equal, round, regular, and reactive sluggishly to light. V & VII: The corneal reflexes were present bilaterally. However, the right- sided reflex was significantly diminished compared to the left. VIII: He was able to hear and had no nystagmus. IX & X: Gag reflex was suppressed. XI: The sternocleidomastoids and trapezii functioned minimally. XII: The tongue was in the midline. MOTOR SYSTEM: The tone was increased in all four extremities with spasticity more marked on the right than on the left. Examination of muscle mass revealed generalized muscle wasting, again more marked on the right than on the left. Examination of power was impossible to perform on individual muscle groups. However, he did move all four extremities on deep pain with possibly right greater than left-sided weakness. SENSORY EXAMINATION: He responded appropriately to deep pain with less vigorous responses on the right side compared to the left. REFLEXES: Trace+ and bilaterally symmetrical at the biceps, triceps, brachioradialis. 0 at both knees and ankles. The plantar responses were extensor bilaterally. COORDINATION, STANCE & GAIT: Could not be tested. Impression/Recommendations Diagnostic Impression 1. Mr. Sagar Narvaez is a 72-year-old, [place] gentleman, of unknown handedness, who does have a past history of cerebrovascular disease with a prior stroke, pulmonary tuberculosis, chronic respiratory failure for which he has tracheostomy, and dysphagia for which he has a gastrostomy; who [place] [facility] where he was noted to have an alteration in his mental state in the form of increased lethargy. He was thus brought into the [facility] emergency room and following admission, he apparently spiked a fever to 103 degrees Fahrenheit followed by multiple seizures. He was cooled down, given Ativan and started on Keppra and has been seizure-free since then. 2. He was sleeping when I went to see him. He could be aroused. When aroused, his eyes were open and he made brief eye contact. He also turned his eyes and head towards the side of vocal stimulation. He blinked to threat. He however is non verbal. He continues to be seizure-free. He continues to be non-functional. His cardio-respiratory function is stable. 3. On neurological examination, at this time, when aroused, he was awake. He makes eye contact. He also turns his eyes and head towards the side of vocal stimulation. He blinks to threat. He however is non verbal. His corneal reflex is diminished on the right side compared to the left. 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 In addition, he responds to deep pain, less on the right than on the left. His deep tendon reflexes are globally diminished and his plantar responses are extensor bilaterally. 4. Laboratory data on my initial evaluation revealed that his WBC count is creeping up from 4.4 to 9.5. He is significantly anemic with a hemoglobin of 8.8 G. His chemistry panel reveals that his bilirubin is elevated to 1.1. His alkaline phosphatase is elevated to 367, his AST is elevated to 52. His albumin is low at 1.9. His arterial blood gas reveals a pCO2 of 29 and a pO2 of 59 with a pH of 7.43. His urinalysis reveals 2+ leukocyte esterase with 2-4 RBCs and 2-4 WBCs per high-power field. 5. The EEG done on 04/27/18 revealed a moderately severe encephalopathy and left > right hemispheric dysfunction. No inter-ictal discharges were seen. 6. The CT of the brain done on 04/30/18 revealed multiple old bilateral cerebral infarcts involving the left > right brain. 7. 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 8. His mental state is improving slowly. Recommendations 1. Continue present management. 2. Continue Keppra 750 mg q.12 hours. 3. Agree with plan to transfer to [facility]. Mercedes Coelho M.D., M.S.P.Rosa M. MERCEDES COELHO May 09, 2018 15:34
[2018-05-09 16:00] VITALS: BP 152/77
--- NOTE | 2018-05-09 16:33 | Diagnostic Imaging Report ---
Clinical Indication: Abdominal pain, abnormal liver function tests, upper GI bleed Technique: Patient given oral contrast. IV administration nonionic contrast. Venous phase spiral acquisitions obtained through the abdomen. Multiplanar reconstructions were generated. Total dose length product 581.5 mGycm. CTDIvol(s) 10.99 mGy. Dose reduction achieved using automated exposure control Comparison: 12/16/2017 Findings: Patient is status post cholecystectomy. Again demonstrated is pneumobilia, indicating prior biliary intervention and patency of the bile ducts. There is a small fluid collection within the fissure for the ligamentum teres, measuring 2.8 cm diameter, not evident previously, probably representing ascites that has leaked into this area. A small collateral vein appears to course through this. Within segment 3 of the liver adjacent to the fissure for the ligamentum teres, there is a hyperenhancing focus which measures 10 mm in diameter, not evident previously. The liver demonstrates minimal surface nodularity, as previously. Trace ascites fluid surrounds the liver and is also seen over the dome of the spleen.. The pancreas is unremarkable. The spleen is enlarged, measuring 13 cm long axis dimension. This is slightly increased in size from the prior exam. No definite varices are demonstrated. The adrenals are unremarkable. The left kidney again demonstrates multiple cysts. The right kidney demonstrates a single cyst and some scarring in the upper pole. No retroperitoneal or mesenteric mass or adenopathy are demonstrated. The appendix is normal. The visualized portions of the colon and small bowel are unremarkable. The stomach has a gastrostomy again demonstrated, in good position. The distal esophagus is unremarkable. There is a moderate left and small to moderate right pleural effusion. There is resultant compressive atelectasis of much of the left lower lobe. There is some compressive atelectasis of the right lung, but generalized parenchymal consolidation at the right lung base seen previously is no longer evident. There is degenerative spondylosis noted. . Impression: Hyperenhancing focus within the left hepatic lobe, as described, not evident on prior exam of 12/16/2017. While possibly a transient hepatic attenuation difference, the possibility of a developing small hepatocellular carcinoma cannot be ruled out. Consider further evaluation with liver specific MRI. Trace ascites fluid. This is a new finding since 12/16/2017, but was described on recent sonogram of 04/28/2018 Minimal hepatic surface nodularity, also described on prior sonograms, likely indicates that hepatic cirrhosis Splenomegaly, spleen increased in size since previous exam New moderate left and small to moderate right pleural effusion. Compressive atelectasis of much of the right lower lobe. Patchy atelectasis and consolidation of the right lower lobe, less than seen previously Gastrostomy again demonstrated, good position Evidence of prior cholecystectomy Pneumobilia again demonstrated, presumably indicating prior biliary intervention Fluid collection in the fissure for ligamentum teres, presumably reflects ascites fluid that has migrated into this area Incidental finding of degenerative spondylosis, bilateral renal cysts The CT scanner at [facility] is accredited by the [employer] and the scans are performed using protocols designed to limit radiation exposure to as low as reasonably achievable to attain images of sufficient resolution adequate for diagnostic evaluation.
--- NOTE | 2018-05-09 19:51 | General Progress Note ---
Assessment/Plan Assessment/Plan Assessment - suspected early cirrhosis based on imaging - hepatitis A/B/C negative - TRISTAN negative but F-Actin (+) - ? significance - Liver lesion, r/o HCC (AFP pending) - rising LFT - UGIB, resolved - Anemia - Resp failure - s/p PEG and Trach Recommendations - not good candidate for liver biopsy or for steroids - Await AFP - If normal, will consider MRI - would follow conservatively - continue TF Subjective Allergies: Coded Allergies: No Known Allergies (Unverified , 01/27/17) Subjective No events overnight Tolerating TF non communicative LFT elevated CT --> New 10 mm hyperintense lesion in segment 3 Objective Last 24 Hour Vital Signs Date Time Temp Pulse Resp B/P (MAP) Pulse Ox O2 Delivery O2 Flow Rate FiO2 05/09/18 19:42 77 24 Trach Collar 6.0 28 05/09/18 19:37 Trach Collar 6.0 28 05/09/18 16:32 73 30 40 05/09/18 16:00 8.0 30 05/09/18 16:00 T-piece 8.0 05/09/18 16:00 97.9 73 20 152/77 (102) 100 97.9 05/09/18 16:00 71 05/09/18 14:51 74 35 30 05/09/18 13:27 75 28 30 05/09/18 12:00 98.1 76 20 136/83 (100) 100 98.1 05/09/18 12:00 71 05/09/18 12:00 8.0 30 05/09/18 12:00 T-piece 8.0 05/09/18 11:22 100 05/09/18 11:22 67 22 30 05/09/18 10:30 70 35 30 05/09/18 09:00 62 20 30 05/09/18 08:41 61 139/63 05/09/18 08:00 30 05/09/18 08:00 Mechanical Ventilator 05/09/18 08:00 98.6 61 21 139/63 (88) 93 98.6 05/09/18 08:00 63 05/09/18 07:10 64 25 30 05/09/18 05:03 58 18 30 05/09/18 04:00 30 05/09/18 04:00 57 05/09/18 04:00 97.6 55 20 146/71 (96) 100 97.6 05/09/18 04:00 Mechanical Ventilator 05/09/18 03:16 56 14 30 05/09/18 01:01 59 21 30 05/09/18 00:00 30 05/09/18 00:00 Mechanical Ventilator 05/09/18 00:00 98.9 59 20 150/80 (103) 100 98.9 05/09/18 00:00 58 05/08/18 23:28 58 20 30 05/08/18 21:31 64 20 30 05/08/18 21:26 64 165/80 05/08/18 20:00 62 05/08/18 20:00 Mechanical Ventilator 05/08/18 20:00 30 05/08/18 20:00 97.7 62 20 164/92 (116) 100 97.7 Intake and Output 05/08/18 05/09/18 19:00 07:00 Intake Total 1390 ml 162.5 ml Output Total 1000 ml Balance 1390 ml -837.5 ml Free Water 180 ml IV Total 550 ml 102.5 ml Tube Feeding 660 ml 60 ml Output Urine Total 1000 ml # Bowel Movements 2 Laboratory Tests 05/09/18 03:50: White Blood Count 3.8L, Red Blood Count 3.53L, Hemoglobin 8.5L, Hematocrit 27.6L , Mean Corpuscular Volume 78L, Mean Corpuscular Hemoglobin 24.0L, Mean Corpuscular Hemoglobin Concent 30.7L, Red Cell Distribution Width 17.9H, Platelet Count 252, Mean Platelet Volume 5.4L, Neutrophils (%) (Auto) 58.7, Lymphocytes (%) (Auto) 24.8, Monocytes (%) (Auto) 14.3H, Eosinophils (%) (Auto) 1.6, Basophils (%) (Auto) 0.7, Sodium Level 140, Potassium Level 4.1, Chloride Level 107, Carbon Dioxide Level 29, Anion Gap 4L, Blood Urea Nitrogen 23H, Creatinine 0.5L, Estimat Glomerular Filtration Rate , Glucose Level 69L, Calcium Level 8.3L, Magnesium Level 1.6L, Total Bilirubin 0.7, Aspartate Amino Transf (AST/SGOT) 159H, Alanine Aminotransferase (ALT/SGPT) 65, Alkaline Phosphatase 339H, Pro-B-Type Natriuretic Peptide 956H, Total Protein 6.0L, Albumin 1.6L, Globulin 4.4, Albumin/Globulin Ratio 0.4L, Alpha Fetoprotein [ Pending] 05/09/18 15:10: Arterial Blood pH 7.448, Arterial Blood Partial Pressure CO2 36.8, Arterial Blood Partial Pressure O2 74.9L, Arterial Blood HCO3 24.9, Arterial Blood Oxygen Saturation 94.7L, Arterial Blood Base Excess 1.0, Derek Test Positive Height (Feet): 5 Height (Inches): 7.00 Weight (Pounds): 143 Objective Thin AA man non communicative NCAT (+) trach CTA RRR soft ND NT, (+) GT no edema Oli Amaya MD May 09, 2018 19:51
[2018-05-09 20:00] VITALS: BP 155/80
[2018-05-09] MEDS: Dyna-Hex 2% Top Sol 2oz TOPIC SCH (20:24)
[2018-05-09] MEDS: Tamsulosin 0.4mg cap ORAL SCH (20:25)
--- NOTE | 2018-05-09 20:45 | Progress Note ---
DATE: 05/09/2018 CARDIOLOGY PROGRESS NOTE: SUBJECTIVE: The patient remains on ventilator support via tracheostomy. Ongoing weaning efforts. He continues with moderate secretions. Monitored rhythm sinus with atrial ectopics. OBJECTIVE: VITAL SIGNS: Blood pressure 146/71, pulse 55, and respirations 20. LUNGS: Good breath sounds. No wheezing. HEART: Regular rhythm and rate. Normal S1 and S2. ABDOMEN: Soft. Trace edema. G-tube site intact. LABORATORY DATA: White count 3.8 and hemoglobin 8.5. Sodium 140, potassium 4.1, BUN 22, creatinine 0.5, bicarb 29, and magnesium 1.6. Albumin 1.6. ABG, pH 7.44, pCO2 36, pO2 75. Natriuretic peptide has decreased to 993. IMPRESSION: 1. Respiratory failure. 2. Pulmonary tuberculosis. 3. Tracheostomy. 4. Acute and chronic diastolic congestive heart failure. 5. Severe protein-calorie malnutrition. 6. Hypomagnesemia. PLAN: 1. Weaning efforts. 2. Antimicrobials. 3. Respiratory hygiene. 4. Diuresis based on clinical parameters. 5. Trend natriuretic peptide assay. 6. Replace magnesium intravenously. 7. DVT prophylaxis. 8. Nutrition by feeding tube with protein supplements. Jones Arauz M.D. DR: RAUL JOB#: [id number] CC:
[2018-05-10] VITALS: BP 153/79
[2018-05-10 04:00] VITALS: BP 158/84
[2018-05-10 08:00] VITALS: BP 168/90
--- NOTE | 2018-05-10 08:46 | General Progress Note ---
Assessment/Plan Problem List: (1) Status epilepticus ICD Codes: G40.901 - Epilepsy, unspecified, not intractable, with status epilepticus SNOMED: 055827835 (2) Encephalopathy acute ICD Codes: G93.40 - Encephalopathy, unspecified SNOMED: 68367928, 890970096 (3) Probable sepsis ICD Codes: A41.9 - Sepsis, unspecified organism SNOMED: 201644378 (4) Dementia ICD Codes: F03.90 - Unspecified dementia without behavioral disturbance SNOMED: 79273034 (5) Encephalopathy ICD Codes: G93.40 - Encephalopathy, unspecified SNOMED: 17190429 (6) Sepsis ICD Codes: A41.9 - Sepsis, unspecified organism SNOMED: 61205857 (7) Pulmonary tuberculosis ICD Codes: A15.0 - Tuberculosis of lung SNOMED: 461596492 (8) Dehydration ICD Codes: E86.0 - Dehydration SNOMED: 98178515 (9) Altered level of consciousness ICD Codes: R40.4 - Transient alteration of awareness SNOMED: 0669086 Status: stable, progressing Assessment/Plan vent prn wean as able abx per ID tb rx gt feeds wound care sz rx stable for dc family appealed. requesting that pt be weaned in the hospital. Subjective ROS Limited/Unobtainable: No Constitutional: Reports: malaise, weakness HEENT: Reports: no symptoms Cardiovascular: Reports: no symptoms Respiratory: Reports: no symptoms Gastrointestinal/Abdominal: Reports: no symptoms Genitourinary: Reports: no symptoms Neurologic/Psychiatric: Reports: pre-existing deficit Endocrine: Reports: no symptoms Hematologic/Lymphatic: Reports: anemia Allergies: Coded Allergies: No Known Allergies (Unverified , 01/27/17) All Systems: reviewed and negative except above Subjective no real change. no fever or chills. off the vent. tolerating feeds. no szs noted. Objective Last 24 Hour Vital Signs Date Time Temp Pulse Resp B/P (MAP) Pulse Ox O2 Delivery O2 Flow Rate FiO2 05/10/18 04:00 6.0 28 05/10/18 04:00 T-piece 8.0 05/10/18 04:00 98.6 72 24 158/84 (108) 94 98.6 05/10/18 03:44 75 05/10/18 01:10 T-piece 6.0 28 05/10/18 01:09 76 24 Trach Collar 6.0 28 05/10/18 00:00 6.0 28 05/10/18 00:00 T-piece 8.0 05/10/18 00:00 98.1 65 24 153/79 (103) 100 98.1 05/09/18 23:31 64 05/09/18 22:02 70 155/80 05/09/18 20:00 6.0 28 05/09/18 20:00 97.7 70 28 155/80 (105) 99 97.7 05/09/18 20:00 T-piece 8.0 05/09/18 19:42 77 24 Trach Collar 6.0 28 05/09/18 19:37 T-piece 6.0 28 05/09/18 19:33 82 05/09/18 16:32 73 30 40 05/09/18 16:00 8.0 30 05/09/18 16:00 T-piece 8.0 05/09/18 16:00 97.9 73 20 152/77 (102) 100 97.9 05/09/18 16:00 71 05/09/18 14:51 74 35 30 05/09/18 13:27 75 28 30 05/09/18 12:00 98.1 76 20 136/83 (100) 100 98.1 05/09/18 12:00 71 05/09/18 12:00 8.0 30 05/09/18 12:00 T-piece 8.0 05/09/18 11:22 100 05/09/18 11:22 67 22 30 05/09/18 10:30 70 35 30 05/09/18 09:00 62 20 30 Intake and Output 05/09/18 05/10/18 19:00 07:00 Intake Total 1017.5 ml 862.5 ml Output Total 750 ml 2200 ml Balance 267.5 ml -1337.5 ml Free Water 260 ml 100 ml IV Total 157.5 ml 102.5 ml Tube Feeding 600 ml 660 ml Output Urine Total 750 ml 2200 ml # Voids 1 # Bowel Movements 2 Laboratory Tests 05/09/18 15:10: Arterial Blood pH 7.448, Arterial Blood Partial Pressure CO2 36.8, Arterial Blood Partial Pressure O2 74.9L, Arterial Blood HCO3 24.9, Arterial Blood Oxygen Saturation 94.7L, Arterial Blood Base Excess 1.0, Derek Test Positive Height (Feet): 5 Height (Inches): 7.00 Weight (Pounds): 141 Objective General Appearance: WD/WN, cachetic, thin Neck: supple Cardiovascular: tachycardia Respiratory/Chest: rhonchi - bilaterally Abdomen: normal bowel sounds, non tender, soft, no organomegaly Edema: no edema noted Arm (L), no edema noted Arm (R), no edema noted Leg (L), no edema noted Leg (R), no edema noted Pedal (L), no edema noted Pedal (R), no edema noted Generalized Jarrod Vásquez MD May 10, 2018 08:46
[2018-05-10] MEDS: Docusate 100mg/10ml Liq ORAL SCH (09:16)
[2018-05-10] MEDS: Multivitamin w/Minerals tab ORAL SCH (09:16)
[2018-05-10] MEDS: Metoprolol Tartrate 50mg tab GT SCH ×2 (09:16→21:22)
[2018-05-10] MEDS: Pyridoxine 50mg tab ORAL SCH (09:16)
[2018-05-10] MEDS: Isoniazid 300mg tab ORAL SCH (09:17)
[2018-05-10] MEDS: levETIRAcetam 750 MG in D5W 95 ML IV SCH ×2 (09:17→21:21)
[2018-05-10] MEDS: cefTRIAXone 1 GM in D5W 55 ML IVPB SCH (09:17)
[2018-05-10 12:00] VITALS: BP 173/97
--- NOTE | 2018-05-10 13:33 | General Progress Note ---
Assessment/Plan Assessment/Plan Assessment - suspected early cirrhosis based on imaging - hepatitis A/B/C negative - TRISTAN negative but F-Actin (+) - ? significance - Liver lesion, r/o HCC -->AFP normal - rising LFT - UGIB, resolved - Anemia - Resp failure - s/p PEG and Trach Recommendations - not good candidate for liver biopsy or for steroids - will consider MRI - would follow conservatively - continue TF Subjective Allergies: Coded Allergies: No Known Allergies (Unverified , 01/27/17) Subjective No events overnight Tolerating TF non communicative LFT elevated CT --> New 10 mm hyperintense lesion in segment 3 Objective Last 24 Hour Vital Signs Date Time Temp Pulse Resp B/P (MAP) Pulse Ox O2 Delivery O2 Flow Rate FiO2 05/10/18 10:23 100 05/10/18 09:16 79 168/90 05/10/18 09:05 T-piece 6.0 28 05/10/18 09:05 79 24 Trach Collar 6.0 28 05/10/18 08:00 98.1 71 28 168/90 (116) 97 98.1 05/10/18 08:00 70 05/10/18 04:00 6.0 28 05/10/18 04:00 T-piece 8.0 05/10/18 04:00 98.6 72 24 158/84 (108) 94 98.6 05/10/18 03:44 75 05/10/18 01:10 T-piece 6.0 28 05/10/18 01:09 76 24 Trach Collar 6.0 28 05/10/18 00:00 6.0 28 05/10/18 00:00 T-piece 8.0 05/10/18 00:00 98.1 65 24 153/79 (103) 100 98.1 05/09/18 23:31 64 05/09/18 22:02 70 155/80 05/09/18 20:00 6.0 28 05/09/18 20:00 97.7 70 28 155/80 (105) 99 97.7 05/09/18 20:00 T-piece 8.0 05/09/18 19:42 77 24 Trach Collar 6.0 28 05/09/18 19:37 T-piece 6.0 28 05/09/18 19:33 82 05/09/18 16:32 73 30 40 05/09/18 16:00 8.0 30 05/09/18 16:00 T-piece 8.0 05/09/18 16:00 97.9 73 20 152/77 (102) 100 97.9 05/09/18 16:00 71 05/09/18 14:51 74 35 30 Intake and Output 05/09/18 05/10/18 19:00 07:00 Intake Total 1017.5 ml 862.5 ml Output Total 750 ml 2200 ml Balance 267.5 ml -1337.5 ml Free Water 260 ml 100 ml IV Total 157.5 ml 102.5 ml Tube Feeding 600 ml 660 ml Output Urine Total 750 ml 2200 ml # Voids 1 # Bowel Movements 2 Laboratory Tests 05/09/18 15:10: Arterial Blood pH 7.448, Arterial Blood Partial Pressure CO2 36.8, Arterial Blood Partial Pressure O2 74.9L, Arterial Blood HCO3 24.9, Arterial Blood Oxygen Saturation 94.7L, Arterial Blood Base Excess 1.0, Derek Test Positive 05/10/18 08:44: Arterial Blood pH 7.470H, Arterial Blood Partial Pressure CO2 31.6L, Arterial Blood Partial Pressure O2 92.0, Arterial Blood HCO3 27.2H, Arterial Blood Oxygen Saturation 96.5, Arterial Blood Base Excess 3.6H, Derek Test Positive Height (Feet): 5 Height (Inches): 7.00 Weight (Pounds): 141 Objective Thin AA man non communicative NCAT (+) trach CTA RRR soft ND NT, (+) GT no edema Oli Amaya MD May 10, 2018 13:33
[2018-05-10] MEDS ORDERED: Tubing IV Secondary IV ONE (15:03)
[2018-05-10] MEDS ORDERED: NS 275ml ONE (15:03)
[2018-05-10] MEDS ORDERED: D5NS 1000ml IV ONE (15:03)
--- NOTE | 2018-05-10 15:40 | Pulmonology Progress Note ---
Assessment/Plan Assessment/Plan Assessment/Plan IMPRESSION respiratory failure possible sepsis chronic encephalopathy trach debility hypoxemia htn metabolic acidosis ho hypertension ho seizures abnormal imaging PLAN reviewed care currently on AC vent support and wean to off as able elevate head and monitor has been tolerating CPAP over the past 48 hours supportive care as outlined monitor ABG PRN suction PRN periodic imaging for change; noted infiltrate dc planning to snf follow clinically for change and monitor oxygen as needed monitor hemodynamics and adjust prognosis guarded at present fully dependent at present medications/laboratory data/nursing notes reviewed in detail note reviewed and edited care discussed with RN and RT Subjective ROS Limited/Unobtainable: Yes Allergies: Coded Allergies: No Known Allergies (Unverified , 01/27/17) Subjective care reviewed on vent full support in [place] comfortable at present family concerns noted Objective Last 24 Hour Vital Signs Date Time Temp Pulse Resp B/P (MAP) Pulse Ox O2 Delivery O2 Flow Rate FiO2 05/09/18 05:03 58 18 30 05/09/18 04:00 30 05/09/18 04:00 57 05/09/18 04:00 97.6 55 20 146/71 (96) 100 97.6 05/09/18 04:00 Mechanical Ventilator 05/09/18 03:16 56 14 30 05/09/18 01:01 59 21 30 05/09/18 00:00 30 05/09/18 00:00 Mechanical Ventilator 05/09/18 00:00 98.9 59 20 150/80 (103) 100 98.9 05/09/18 00:00 58 05/08/18 23:28 58 20 30 05/08/18 21:31 64 20 30 05/08/18 21:26 64 165/80 05/08/18 20:00 62 05/08/18 20:00 Mechanical Ventilator 05/08/18 20:00 30 05/08/18 20:00 97.7 62 20 164/92 (116) 100 97.7 05/08/18 19:12 64 16 30 05/08/18 17:28 60 24 30 05/08/18 16:21 64 05/08/18 16:00 30 05/08/18 16:00 Mechanical Ventilator 05/08/18 16:00 97.7 64 16 154/80 (104) 100 97.7 05/08/18 15:18 62 22 30 05/08/18 13:28 59 05/08/18 12:30 59 22 30 05/08/18 12:00 98.5 63 21 155/83 (107) 100 98.5 05/08/18 12:00 Mechanical Ventilator 05/08/18 12:00 30 05/08/18 10:40 77 24 30 05/08/18 09:50 99 05/08/18 09:04 68 156/80 05/08/18 08:31 68 05/08/18 08:30 71 30 30 Intake and Output 05/08/18 05/09/18 19:00 07:00 Intake Total 1390 ml 162.5 ml Output Total 1000 ml Balance 1390 ml -837.5 ml Free Water 180 ml IV Total 550 ml 102.5 ml Tube Feeding 660 ml 60 ml Output Urine Total 1000 ml # Bowel Movements 2 Objective WDWN NAD poorly responsive moderate breath sounds bilaterally with scattered rhonchi [id number] without MRG NABS nontender no HSM; gt no CCE cachectic poor response to pain skin noted comfortable at present reviewed and edited Laboratory Tests 05/08/18 08:15: Arterial Blood pH 7.480H, Arterial Blood Partial Pressure CO2 34.7L, Arterial Blood Partial Pressure O2 149.5H, Arterial Blood HCO3 25.3, Arterial Blood Oxygen Saturation 98.4, Arterial Blood Base Excess 1.9, Derek Test Positive 05/09/18 03:50: White Blood Count 3.8L, Red Blood Count 3.53L, Hemoglobin 8.5L, Hematocrit 27.6L , Mean Corpuscular Volume 78L, Mean Corpuscular Hemoglobin 24.0L, Mean Corpuscular Hemoglobin Concent 30.7L, Red Cell Distribution Width 17.9H, Platelet Count 252, Mean Platelet Volume 5.4L, Neutrophils (%) (Auto) 58.7, Lymphocytes (%) (Auto) 24.8, Monocytes (%) (Auto) 14.3H, Eosinophils (%) (Auto) 1.6, Basophils (%) (Auto) 0.7, Sodium Level 140, Potassium Level 4.1, Chloride Level 107, Carbon Dioxide Level 29, Anion Gap 4L, Blood Urea Nitrogen 23H, Creatinine 0.5L, Estimat Glomerular Filtration Rate , Glucose Level 69L, Calcium Level 8.3L, Magnesium Level 1.6L, Total Bilirubin 0.7, Aspartate Amino Transf (AST/SGOT) 159H, Alanine Aminotransferase (ALT/SGPT) 65, Alkaline Phosphatase 339H, Pro-B-Type Natriuretic Peptide 956H, Total Protein 6.0L, Albumin 1.6L, Globulin 4.4, Albumin/Globulin Ratio 0.4L, Alpha Fetoprotein [ Pending] Current Medications Medications (Trade) Dose Ordered Sig/Iram Route PRN Reason Start Time Stop Time Status Last Admin Dose Admin Acetaminophen (Tylenol) 650 mg Q4H PRN ORAL Fever/Headache/Mild Pain 05/02/18 18:30 05/26/18 18:29 05/07/18 23:29 Artificial Tears (Akwa-Tears) 2 drop FIVE TIMES A DAY PRN BOTH EYES Dry Eyes 05/02/18 19:00 05/31/18 11:44 05/06/18 08:32 Atorvastatin Calcium (Lipitor) 10 mg BEDTIME GT 05/02/18 21:00 05/28/18 20:59 05/08/18 21:26 Barium Sulfate (Readi-Cat 2) 450 ml NOW PRN ORAL Radiology Procedure 05/08/18 21:00 05/10/18 20:56 Ceftriaxone Sodium 1 gm/ Dextrose 55 ml @ 110 mls/hr DAILY IVPB 05/03/18 09:00 05/10/18 23:59 05/08/18 08:57 Chlorhexidine Gluconate (Letha-Hex 2%) 1 applic DAILY@2000 TOPIC 05/02/18 20:00 05/31/18 19:59 05/08/18 21:24 Clonidine HCl (Catapres Tab) 0.1 mg Q4H PRN ORAL SBP >160 05/02/18 19:00 05/28/18 10:59 Docusate Sodium (Colace) 100 mg DAILY ORAL 05/03/18 09:00 05/27/18 08:59 05/08/18 08:58 Ethambutol HCl (Myambutol) 800 mg DAILY ORAL 05/03/18 09:00 05/27/18 08:59 05/08/18 09:02 Fluconazole (Diflucan) 100 mg DAILY ORAL 05/04/18 09:00 05/11/18 08:59 05/08/18 09:00 Hydralazine HCl (Apresoline) 10 mg Q4H PRN IV SBP >160 05/02/18 18:18 05/28/18 18:17 Iopamidol (Isovue-300 100ml) 100 ml NOW PRN INJ Radiology Procedure 05/08/18 21:00 05/10/18 20:56 Isoniazid (Inh) 300 mg DAILY ORAL 05/03/18 09:00 05/27/18 08:59 05/08/18 09:00 Lansoprazole (Prevacid) 30 mg Q12HR ORAL 05/05/18 21:00 06/04/18 20:59 05/08/18 21:27 Levetiracetam 750 mg/Dextrose 102.5 ml @ 440 mls/hr Q12HR IV 05/02/18 21:00 05/29/18 00:59 05/08/18 21:26 Metoprolol Tartrate (Lopressor) 50 mg Q12HR GT 05/02/18 21:00 05/28/18 20:59 05/08/18 21:26 Multivitamins Therapeutic (Therapeutic Multivitamin) 1 ea DAILY ORAL 05/03/18 09:00 05/27/18 08:59 05/08/18 09:03 Ondansetron HCl (Zofran) 4 mg Q6H PRN IVP Nausea & Vomiting 05/02/18 18:19 05/28/18 18:18 Pyrazinamide (Pza) 1,000 mg DAILY ORAL 05/03/18 09:00 05/28/18 08:59 05/08/18 09:02 Pyridoxine HCl (Vitamin B6) 50 mg DAILY ORAL 05/03/18 09:00 05/27/18 08:59 05/08/18 09:02 Rifampin (Rifadin) 600 mg DAILY ORAL 05/03/18 09:00 05/27/18 08:59 05/08/18 09:00 Sennosides (Senokot) 2 tab BIDPRN PRN GT Constipation 05/02/18 18:20 05/27/18 18:19 Tamsulosin HCl (Flomax) 0.4 mg BEDTIME ORAL 05/02/18 21:00 05/27/18 20:59 05/08/18 21:26 Subjective ROS Limited/Unobtainable: Yes Allergies: Coded Allergies: No Known Allergies (Unverified , 01/27/17) Objective Last 24 Hour Vital Signs Date Time Temp Pulse Resp B/P (MAP) Pulse Ox O2 Delivery O2 Flow Rate FiO2 05/10/18 13:10 81 22 Trach Collar 6.0 28 05/10/18 13:10 T-piece 6.0 28 05/10/18 12:00 T-piece 8.0 05/10/18 12:00 98.1 77 30 173/97 (122) 91 98.1 05/10/18 12:00 70 05/10/18 12:00 6.0 28 05/10/18 10:23 100 05/10/18 09:16 79 168/90 05/10/18 09:05 T-piece 6.0 28 05/10/18 09:05 79 24 Trach Collar 6.0 28 05/10/18 08:00 98.1 71 28 168/90 (116) 97 98.1 05/10/18 08:00 T-piece 8.0 05/10/18 08:00 6.0 28 05/10/18 08:00 70 05/10/18 04:00 6.0 28 05/10/18 04:00 T-piece 8.0 05/10/18 04:00 98.6 72 24 158/84 (108) 94 98.6 05/10/18 03:44 75 05/10/18 01:10 T-piece 6.0 28 05/10/18 01:09 76 24 Trach Collar 6.0 28 05/10/18 00:00 6.0 28 05/10/18 00:00 T-piece 8.0 05/10/18 00:00 98.1 65 24 153/79 (103) 100 98.1 05/09/18 23:31 64 05/09/18 22:02 70 155/80 05/09/18 20:00 6.0 28 05/09/18 20:00 97.7 70 28 155/80 (105) 99 97.7 05/09/18 20:00 T-piece 8.0 05/09/18 19:42 77 24 Trach Collar 6.0 28 05/09/18 19:37 T-piece 6.0 28 05/09/18 19:33 82 05/09/18 16:32 73 30 40 05/09/18 16:00 8.0 30 05/09/18 16:00 T-piece 8.0 10/5/18 16:00 97.9 73 20 152/77 (102) 100 97.9 05/09/18 16:00 71 Intake and Output 05/09/18 05/10/18 19:00 07:00 Intake Total 1017.5 ml 862.5 ml Output Total 750 ml 2200 ml Balance 267.5 ml -1337.5 ml Free Water 260 ml 100 ml IV Total 157.5 ml 102.5 ml Tube Feeding 600 ml 660 ml Output Urine Total 750 ml 2200 ml # Voids 1 # Bowel Movements 2 Laboratory Tests 05/10/18 08:44: Arterial Blood pH 7.470H, Arterial Blood Partial Pressure CO2 31.6L, Arterial Blood Partial Pressure O2 92.0, Arterial Blood HCO3 27.2H, Arterial Blood Oxygen Saturation 96.5, Arterial Blood Base Excess 3.6H, Derek Test Positive Current Medications Medications (Trade) Dose Ordered Sig/Iram Route PRN Reason Start Time Stop Time Status Last Admin Dose Admin Acetaminophen (Tylenol) 650 mg Q4H PRN ORAL Fever/Headache/Mild Pain 05/02/18 18:30 05/26/18 18:29 05/07/18 23:29 Artificial Tears (Akwa-Tears) 2 drop FIVE TIMES A DAY PRN BOTH EYES Dry Eyes 05/02/18 19:00 05/31/18 11:44 05/06/18 08:32 Ascorbic Acid (Vitamin C) 250 mg DAILY ORAL 05/11/18 09:00 06/10/18 08:59 Atorvastatin Calcium (Lipitor) 10 mg BEDTIME GT 05/02/18 21:00 05/28/18 20:59 05/09/18 20:25 Barium Sulfate (Readi-Cat 2) 450 ml NOW PRN ORAL Radiology Procedure 05/08/18 21:00 05/10/18 20:56 Ceftriaxone Sodium 1 gm/ Dextrose 55 ml @ 110 mls/hr DAILY IVPB 05/03/18 09:00 05/10/18 23:59 05/10/18 09:17 Chlorhexidine Gluconate (Letha-Hex 2%) 1 applic DAILY@2000 TOPIC 05/02/18 20:00 05/31/18 19:59 05/09/18 20:24 Clonidine HCl (Catapres Tab) 0.1 mg Q4H PRN ORAL SBP >160 05/02/18 19:00 05/28/18 10:59 Docusate Sodium (Colace) 100 mg DAILY ORAL 05/03/18 09:00 05/27/18 08:59 05/10/18 09:16 Ethambutol HCl (Myambutol) 800 mg DAILY ORAL 05/03/18 09:00 05/27/18 08:59 05/10/18 09:17 Hydralazine HCl (Apresoline) 10 mg Q4H PRN IV SBP >160 05/02/18 18:18 05/28/18 18:17 Iopamidol (Isovue-300 100ml) 100 ml NOW PRN INJ Radiology Procedure 05/08/18 21:00 05/10/18 20:56 Isoniazid (Inh) 300 mg DAILY ORAL 05/03/18 09:00 05/27/18 08:59 05/10/18 09:17 Lansoprazole (Prevacid) 30 mg Q12HR ORAL 05/05/18 21:00 06/04/18 20:59 05/10/18 09:17 Levetiracetam 750 mg/Dextrose 102.5 ml @ 440 mls/hr Q12HR IV 05/02/18 21:00 05/29/18 00:59 05/10/18 09:17 Metoprolol Tartrate (Lopressor) 50 mg Q12HR GT 05/02/18 21:00 05/28/18 20:59 05/10/18 09:16 Multivitamins Therapeutic (Therapeutic Multivitamin) 1 ea DAILY ORAL 05/03/18 09:00 05/27/18 08:59 05/10/18 09:16 Ondansetron HCl (Zofran) 4 mg Q6H PRN IVP Nausea & Vomiting 05/02/18 18:19 05/28/18 18:18 Pyrazinamide (Pza) 1,000 mg DAILY ORAL 05/03/18 09:00 05/28/18 08:59 05/10/18 09:16 Pyridoxine HCl (Vitamin B6) 50 mg DAILY ORAL 05/03/18 09:00 05/27/18 08:59 05/10/18 09:16 Rifampin (Rifadin) 600 mg DAILY ORAL 05/03/18 09:00 05/27/18 08:59 05/10/18 09:16 Sennosides (Senokot) 2 tab BIDPRN PRN GT Constipation 05/02/18 18:20 05/27/18 18:19 Tamsulosin HCl (Flomax) 0.4 mg BEDTIME ORAL 05/02/18 21:00 05/27/18 20:59 05/09/18 20:25 Jones Rasmussen MD May 10, 2018 15:40
--- NOTE | 2018-05-10 15:59 | Neurology Progress Note ---
Interim History Interim History Interim History Mr. Narvaez was sleeping when I went to see him. He could be aroused. When aroused, his eyes were open but he made very brief eye contact. He turned his eyes and head towards the side of vocal stimulation. He blinked to threat. He was non verbal. He continues to be seizure-free. He continues to be non-functional. His cardio-respiratory function is stable. Review of Systems Neuro Review of Systems Unable to obtain. Objective Physical Exam Last Vital Signs Date Time Temp Pulse Resp B/P (MAP) Pulse Ox O2 Delivery O2 Flow Rate FiO2 05/10/18 13:10 81 22 Trach Collar 6.0 28 05/10/18 12:00 98.1 173/97 (122) 91 98.1 Laboratory Tests Test 05/10/18 08:44 Arterial Blood pH 7.470 (7.350-7.450) Arterial Blood Partial Pressure CO2 31.6 mmHg (35.0-45.0) L Arterial Blood Partial Pressure O2 92.0 mmHg (75.0-100.0) Arterial Blood HCO3 27.2 mmol/L (22.0-26.0) H Arterial Blood Oxygen Saturation 96.5 % (95-100) Arterial Blood Base Excess 3.6 (-2-2) H Derek Test Positive Neurologic Exam Objective PHYSICAL EXAMINATION: GENERAL: He is a well-developed, ill-looking black gentleman, lying in bed, in no acute distress. HEAD: Normocephalic and atraumatic. EENT: Examination benign. NECK: No neck rigidity was observed. NEUROLOGICAL EXAMINATION: MENTAL STATUS EXAMINATION: When aroused, he was awake. He made brief eye contact. He turned his eyes and head towards the side of vocal stimulation. He blinked to threat. He however was non verbal. SPEECH: Could not be tested. LANGUAGE: Could not be tested. CRANIAL NERVE EXAMINATION: II: He did blink to threat. III, IV & : External ocular movements were present. The pupils were 3 mm in diameter, equal, round, regular, and reactive sluggishly to light. V & VII: The corneal reflexes were present bilaterally. However, the right- sided reflex was significantly diminished compared to the left. VIII: He was able to hear and had no nystagmus. IX & X: Gag reflex was suppressed. XI: The sternocleidomastoids and trapezii functioned minimally. XII: The tongue was in the midline. MOTOR SYSTEM: The tone was increased in all four extremities with spasticity more marked on the right than on the left. Examination of muscle mass revealed generalized muscle wasting, again more marked on the right than on the left. Examination of power was impossible to perform on individual muscle groups. However, he did move all four extremities on deep pain with possibly right greater than left-sided weakness. SENSORY EXAMINATION: He responded appropriately to deep pain with less vigorous responses on the right side compared to the left. REFLEXES: Trace+ and bilaterally symmetrical at the biceps, triceps, brachioradialis. 0 at both knees and ankles. The plantar responses were extensor bilaterally. COORDINATION, STANCE & GAIT: Could not be tested. Impression/Recommendations Diagnostic Impression 1. Mr. Sagar Narvaez is a 72-year-old, Citizen Of [place] gentleman, of unknown handedness, who does have a past history of cerebrovascular disease with a prior stroke, pulmonary tuberculosis, chronic respiratory failure for which he has tracheostomy, and dysphagia for which he has a gastrostomy; who lives in [facility] where he was noted to have an alteration in his mental state in the form of increased lethargy. He was thus brought into the [facility] emergency room and following admission, he apparently spiked a fever to 103 degrees Fahrenheit followed by multiple seizures. He was cooled down, given Ativan and started on Keppra and has been seizure-free since then. 2. He was sleeping when I went to see him. He could be aroused. When aroused, his eyes were open and he made brief eye contact. He turned his eyes and head towards the side of vocal stimulation. He blinked to threat. He however was non verbal. He continues to be seizure-free. He continues to be non-functional. His cardio-respiratory function is stable. 3. On neurological examination, at this time, when aroused, he was awake. He makes eye contact. He also turns his eyes and head towards the side of vocal stimulation. He blinks to threat. He however is non verbal. His corneal reflex is diminished on the right side compared to the left. 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 In addition, he responds to deep pain, less on the right than on the left. His deep tendon reflexes are globally diminished and his plantar responses are extensor bilaterally. 4. Laboratory data on my initial evaluation revealed that his WBC count is creeping up from 4.4 to 9.5. He is significantly anemic with a hemoglobin of 8.8 G. His chemistry panel reveals that his bilirubin is elevated to 1.1. His alkaline phosphatase is elevated to 367, his AST is elevated to 52. His albumin is low at 1.9. His arterial blood gas reveals a pCO2 of 29 and a pO2 of 59 with a pH of 7.43. His urinalysis reveals 2+ leukocyte esterase with 2-4 RBCs and 2-4 WBCs per high-power field. 5. The EEG done on 04/27/18 revealed a moderately severe encephalopathy and left > right hemispheric dysfunction. No inter-ictal discharges were seen. 6. The CT of the brain done on 04/30/18 revealed multiple old bilateral cerebral infarcts involving the left > right brain. 7. 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 8. His mental state is stabilizing. Recommendations 1. Continue present management. 2. Continue Keppra 750 mg q.12 hours. 3. Agree with plan to transfer to SNF. Mercedes Coelho M.D., M.S.P.H. MERCEDES COELHO May 10, 2018 15:59
[2018-05-10 16:00] VITALS: BP 174/98
[2018-05-10 20:00] VITALS: BP 147/85
[2018-05-10] MEDS: Dyna-Hex 2% Top Sol 2oz TOPIC SCH (21:21)
[2018-05-10] MEDS: Tamsulosin 0.4mg cap ORAL SCH (21:22)
[2018-05-11] VITALS (7 sets, daily range): BP systolic 101–127; BP diastolic 50–78
--- NOTE | 2018-05-11 03:15 | Progress Note ---
DATE: 05/10/2018 CARDIOLOGY PROGRESS NOTE SUBJECTIVE: Condition unchanged. The patient on ventilator support. Monitored rhythm, sinus. Rare atrial ectopics. Trach site with thin secretions. OBJECTIVE: LUNGS: Bilateral rhonchi. CARDIAC: Regular rhythm and rate. ABDOMEN: G-tube intact. EXTREMITIES: Trace edema. VITAL SIGNS: Vitals revealed blood pressure range of 147/85, heart rate 91, and respiratory rate 24. No fevers spikes. IMPRESSION: 1. Acute on chronic diastolic congestive heart failure. 2. Respiratory failure. 3. Severe protein calorie malnutrition. 4. Hypomagnesemia. 5. Pulmonary tuberculosis. PLAN: 1. Antimicrobials. 2. Ventilator support. 3. Periodic diuresis. 4. Recheck chest x-ray. 5. IV magnesium has been given. 6. DVT and stress ulcer prophylaxis. Jones Arauz M.D. DR: MAURIZIO JOB#: [id number] CC:
[2018-05-11 06:36] LABS: BASOPHILS % (AUTO) 0.5 % (0.0-2.0); EOSINOPHILS % (AUTO) 0.6 % (0.0-3.0); HEMATOCRIT 33.6 % (42.0-52.0); HEMOGLOBIN 10.7 G/DL (14.2-18.0); LYMPHOCYTES % (AUTO) 21.5 % (20.0-45.0); MEAN CORPUSCULAR VOLUME 78 FL (80-99); MONOCYTES % (AUTO) 17.4 % (1.0-10.0); NEUTROPHILS % (AUTO) 60.1 % (45.0-75.0); PLATELET COUNT 291 K/UL (150-450); RED CELL DISTRIBUTION WIDTH 17.8 % (11.6-14.8); WHITE BLOOD COUNT 7.2 K/UL (4.8-10.8)
[2018-05-11 07:40] LABS: ALANINE AMINOTRANSFERASE 53 U/L (12-78); ALBUMIN 1.7 G/DL (3.4-5.0); ALBUMIN/GLOBULIN RATIO 0.3 (1.0-2.7); ALKALINE PHOSPHATASE 368 U/L (46-116); ANION GAP 7 mmol/L (5-15); ASPARTATE AMINO TRANSFERASE 85 U/L (15-37); BILIRUBIN,TOTAL 0.5 MG/DL (0.2-1.0); BLOOD UREA NITROGEN 37 mg/dL (7-18); CALCIUM 8.4 MG/DL (8.5-10.1); CARBON DIOXIDE 27 MMOL/L (21-32); CHLORIDE 106 MMOL/L (98-107); CREATININE 0.7 MG/DL (0.55-1.30); POTASSIUM 4.3 MMOL/L (3.5-5.1); SODIUM 140 MMOL/L (136-145)
--- NOTE | 2018-05-11 08:59 | Diagnostic Imaging Report ---
PORTABLE AP UPRIGHT CXR: HISTORY: 72-year-old male with SOB. COMPARISON: 05/06/2018, 04/28/2018, 04/26/2018, 02/15/2018. FINDINGS: Image is limited by portable technique and external artifacts. Allowing for this, there is a persistent small ill-defined focal low- grade opacity in the left lung base, mildly decreased in prominence since 05/06/2018. Patchy low-grade groundglass and reticular opacities within the right mid and lower lung appear decreased if not resolved since the most recent exam as well. No definite new lung opacity. Tracheostomy tube is in stable and satisfactory position. Left PICC is grossly stable. Heart size is within normal limits. No obvious pneumothorax or effusion. IMPRESSION: Decreased bibasilar lung opacities since 05/06/2018, suggesting decreased edema, atelectasis, and/or pneumonia.
--- NOTE | 2018-05-11 09:17 | Infectious Diseases Prog Note ---
Assessment/Plan Assessment/Plan A; Fever resolved Pneumonia with E. coli treated Fungal UTI Pulmonary TB AMS VDRF VRE colozation history of CVA Gastritis P; Continue TB treatment with [facility] Subjective ROS Limited/Unobtainable: Yes Allergies: Coded Allergies: No Known Allergies (Unverified , 01/27/17) Objective Vital Signs Last 24 Hour Vital Signs Date Time Temp Pulse Resp B/P (MAP) Pulse Ox O2 Delivery O2 Flow Rate FiO2 05/11/18 08:20 83 19 30 05/11/18 05:15 74 19 30 05/11/18 04:00 30 05/11/18 04:00 Mechanical Ventilator 05/11/18 04:00 98.4 72 22 107/69 (82) 98 98.4 05/11/18 03:39 72 05/11/18 03:00 72 18 30 05/11/18 01:10 68 22 30 05/11/18 00:00 30 05/11/18 00:00 Mechanical Ventilator 05/11/18 00:00 98.5 71 18 123/70 (87) 99 98.5 05/11/18 00:00 73 05/10/18 23:25 89 24 30 05/10/18 21:22 91 147/85 05/10/18 21:00 Mechanical Ventilator 05/10/18 20:58 90 27 30 05/10/18 20:00 T-piece 6.0 28 05/10/18 20:00 84 22 Mechanical Ventilator 30 05/10/18 20:00 97.9 91 28 147/85 (105) 99 97.9 05/10/18 20:00 30 05/10/18 20:00 Mechanical Ventilator 05/10/18 20:00 87 05/10/18 18:49 83 17 30 05/10/18 17:04 80 24 30 05/10/18 16:05 173/97 05/10/18 16:00 79 05/10/18 16:00 98.1 76 30 174/98 (123) 98 98.1 05/10/18 16:00 T-piece 8.0 05/10/18 16:00 30 05/10/18 13:10 81 22 Trach Collar 6.0 28 05/10/18 13:10 T-piece 6.0 28 05/10/18 12:00 T-piece 8.0 05/10/18 12:00 98.1 77 30 173/97 (122) 91 98.1 05/10/18 12:00 70 05/10/18 12:00 6.0 28 05/10/18 10:23 100 05/10/18 09:16 79 168/90 Height (Feet): 5 Height (Inches): 7.00 Weight (Pounds): 140 HEENT: status post trach Respiratory/Chest: other - on ventilator, coarse sounds Cardiovascular: normal rate, other - left arm PICC line Abdomen: soft, non tender, other - GT feeding Extremities: no edema Neurologic/Psychiatric: unresponsiveness Musculoskeletal: atrophy Laboratory Tests Test 05/11/18 05:10 White Blood Count 7.2 K/UL (4.8-10.8) Red Blood Count 4.30 M/UL (4.70-6.10) L Hemoglobin 10.7 G/DL (14.2-18.0) L Hematocrit 33.6 % (42.0-52.0) L Mean Corpuscular Volume 78 FL (80-99) L Mean Corpuscular Hemoglobin 24.8 PG (27.0-31.0) L Mean Corpuscular Hemoglobin Concent 31.7 G/DL (32.0-36.0) L Red Cell Distribution Width 17.8 % (11.6-14.8) H Platelet Count 291 K/UL (150-450) Mean Platelet Volume 5.3 FL (6.5-10.1) L Neutrophils (%) (Auto) 60.1 % (45.0-75.0) Lymphocytes (%) (Auto) 21.5 % (20.0-45.0) Monocytes (%) (Auto) 17.4 % (1.0-10.0) H Eosinophils (%) (Auto) 0.6 % (0.0-3.0) Basophils (%) (Auto) 0.5 % (0.0-2.0) Sodium Level 140 MMOL/L (136-145) Potassium Level 4.3 MMOL/L (3.5-5.1) Chloride Level 106 MMOL/L (98-107) Carbon Dioxide Level 27 MMOL/L (21-32) Anion Gap 7 mmol/L (5-15) Blood Urea Nitrogen 37 mg/dL (7-18) H Creatinine 0.7 MG/DL (0.55-1.30) Estimat Glomerular Filtration Rate mL/min (>60) Glucose Level 132 MG/DL (74-106) H Calcium Level 8.4 MG/DL (8.5-10.1) L Magnesium Level 2.0 MG/DL (1.8-2.4) Total Bilirubin 0.5 MG/DL (0.2-1.0) Aspartate Amino Transf (AST/SGOT) 85 U/L (15-37) H Alanine Aminotransferase (ALT/SGPT) 53 U/L (12-78) Alkaline Phosphatase 368 U/L (46-116) H Pro-B-Type Natriuretic Peptide 908 pg/mL (0-125) H Total Protein 6.7 G/DL (6.4-8.2) Albumin 1.7 G/DL (3.4-5.0) L Globulin 5.0 g/dL Albumin/Globulin Ratio 0.3 (1.0-2.7) L Current Medications Medications (Trade) Dose Ordered Sig/Iram Route PRN Reason Start Time Stop Time Status Last Admin Dose Admin Acetaminophen (Tylenol) 650 mg Q4H PRN ORAL Fever/Headache/Mild Pain 05/02/18 18:30 05/26/18 18:29 05/07/18 23:29 Artificial Tears (Akwa-Tears) 2 drop FIVE TIMES A DAY PRN BOTH EYES Dry Eyes 05/02/18 19:00 05/31/18 11:44 05/06/18 08:32 Ascorbic Acid (Vitamin C) 250 mg DAILY ORAL 05/11/18 09:00 06/10/18 08:59 Atorvastatin Calcium (Lipitor) 10 mg BEDTIME GT 05/02/18 21:00 05/28/18 20:59 05/10/18 21:22 Chlorhexidine Gluconate (Letha-Hex 2%) 1 applic DAILY@1999 TOPIC 05/02/18 20:00 05/31/18 19:59 05/10/18 21:21 Clonidine HCl (Catapres Tab) 0.1 mg Q4H PRN ORAL SBP >160 05/02/18 19:00 05/28/18 10:59 05/10/18 16:05 Docusate Sodium (Colace) 100 mg DAILY ORAL 05/03/18 09:00 05/27/18 08:59 05/10/18 09:16 Ethambutol HCl (Myambutol) 800 mg DAILY ORAL 05/03/18 09:00 05/27/18 08:59 05/10/18 09:17 Hydralazine HCl (Apresoline) 10 mg Q4H PRN IV SBP >160 05/02/18 18:18 05/28/18 18:17 Isoniazid (Inh) 300 mg DAILY ORAL 05/03/18 09:00 05/27/18 08:59 05/10/18 09:17 Lansoprazole (Prevacid) 30 mg Q12HR ORAL 05/05/18 21:00 06/04/18 20:59 05/10/18 21:22 Levetiracetam 750 mg/Dextrose 102.5 ml @ 440 mls/hr Q12HR IV 05/02/18 21:00 05/29/18 00:59 05/10/18 21:21 Metoprolol Tartrate (Lopressor) 50 mg Q12HR GT 05/02/18 21:00 05/28/18 20:59 05/10/18 21:22 Multivitamins Therapeutic (Therapeutic Multivitamin) 1 ea DAILY ORAL 05/03/18 09:00 05/27/18 08:59 05/10/18 09:16 Ondansetron HCl (Zofran) 4 mg Q6H PRN IVP Nausea & Vomiting 05/02/18 18:19 05/28/18 18:18 Pyrazinamide (Pza) 1,000 mg DAILY ORAL 05/03/18 09:00 05/28/18 08:59 05/10/18 09:16 Pyridoxine HCl (Vitamin B6) 50 mg DAILY ORAL 05/03/18 09:00 05/27/18 08:59 05/10/18 09:16 Rifampin (Rifadin) 600 mg DAILY ORAL 05/03/18 09:00 05/27/18 08:59 05/10/18 09:16 Sennosides (Senokot) 2 tab BIDPRN PRN GT Constipation 05/02/18 18:20 05/27/18 18:19 Tamsulosin HCl (Flomax) 0.4 mg BEDTIME ORAL 05/02/18 21:00 05/27/18 20:59 05/10/18 21:22 Rahul Shen MD May 11, 2018 09:17
[2018-05-11] MEDS: levETIRAcetam 750 MG in D5W 95 ML IV SCH ×2 (09:39→21:43)
[2018-05-11] MEDS: Docusate 100mg/10ml Liq ORAL SCH (09:40)
[2018-05-11] MEDS: Metoprolol Tartrate 50mg tab GT SCH ×2 (09:42→21:42)
[2018-05-11] MEDS: Ascorbic Acid 500mg tab ORAL SCH (09:42)
[2018-05-11] MEDS: Multivitamin w/Minerals tab ORAL SCH (09:42)
[2018-05-11] MEDS: Isoniazid 300mg tab ORAL SCH (09:43)
[2018-05-11] MEDS: Pyridoxine 50mg tab ORAL SCH (09:43)
--- NOTE | 2018-05-11 14:01 | General Progress Note ---
Assessment/Plan Assessment/Plan Assessment - suspected early cirrhosis based on imaging - hepatitis A/B/C negative - TRISTAN negative but F-Actin (+) - ? significance - Liver lesion, r/o HCC -->AFP normal - rising LFT - UGIB, resolved - Anemia - Resp failure - s/p PEG and Trach Recommendations - not good candidate for liver biopsy or for steroids - will consider MRI - would follow conservatively - continue TF Subjective Allergies: Coded Allergies: No Known Allergies (Unverified , 01/27/17) Subjective No events overnight Tolerating TF non communicative LFT elevated CT --> New 10 mm hyperintense lesion in segment 3 but AFP normal Objective Last 24 Hour Vital Signs Date Time Temp Pulse Resp B/P (MAP) Pulse Ox O2 Delivery O2 Flow Rate FiO2 05/11/18 12:35 60 17 30 05/11/18 12:00 57 05/11/18 12:00 30 05/11/18 12:00 97.5 59 16 125/78 (94) 97 97.5 05/11/18 12:00 Mechanical Ventilator 05/11/18 09:42 71 127/73 05/11/18 08:20 83 19 30 05/11/18 08:00 Mechanical Ventilator 05/11/18 08:00 97.7 71 22 127/73 (91) 99 97.7 05/11/18 08:00 30 05/11/18 08:00 73 05/11/18 05:15 74 19 30 05/11/18 04:00 30 05/11/18 04:00 Mechanical Ventilator 05/11/18 04:00 98.4 72 22 107/69 (82) 98 98.4 05/11/18 03:39 72 05/11/18 03:00 72 18 30 05/11/18 01:10 68 22 30 05/11/18 00:00 30 05/11/18 00:00 Mechanical Ventilator 05/11/18 00:00 98.5 71 18 123/70 (87) 99 98.5 05/11/18 00:00 73 05/10/18 23:25 89 24 30 05/10/18 21:22 91 147/85 05/10/18 21:00 Mechanical Ventilator 05/10/18 20:58 90 27 30 05/10/18 20:00 T-piece 6.0 28 10/6/18 20:00 84 22 Mechanical Ventilator 30 05/10/18 20:00 97.9 91 28 147/85 (105) 99 97.9 05/10/18 20:00 30 05/10/18 20:00 Mechanical Ventilator 05/10/18 20:00 87 05/10/18 18:49 83 17 30 05/10/18 17:04 80 24 30 05/10/18 16:05 173/97 05/10/18 16:00 79 05/10/18 16:00 98.1 76 30 174/98 (123) 98 98.1 05/10/18 16:00 T-piece 8.0 05/10/18 16:00 30 Intake and Output 05/10/18 05/11/18 19:00 07:00 Intake Total 720 ml 937.5 ml Output Total 1100 ml 350 ml Balance -380 ml 587.5 ml Free Water 115 ml IV Total 102.5 ml Tube Feeding 720 ml 720 ml Output Urine Total 1100 ml 350 ml # Bowel Movements 2 Laboratory Tests 05/11/18 05:10: White Blood Count 7.2, Red Blood Count 4.30L, Hemoglobin 10.7L, Hematocrit 33.6L , Mean Corpuscular Volume 78L, Mean Corpuscular Hemoglobin 24.8L, Mean Corpuscular Hemoglobin Concent 31.7L, Red Cell Distribution Width 17.8H, Platelet Count 291, Mean Platelet Volume 5.3L, Neutrophils (%) (Auto) 60.1, Lymphocytes (%) (Auto) 21.5, Monocytes (%) (Auto) 17.4H, Eosinophils (%) (Auto) 0.6, Basophils (%) (Auto) 0.5, Sodium Level 140, Potassium Level 4.3, Chloride Level 106, Carbon Dioxide Level 27, Anion Gap 7, Blood Urea Nitrogen 37H, Creatinine 0.7, Estimat Glomerular Filtration Rate , Glucose Level 132H, Calcium Level 8.4L, Magnesium Level 2.0, Total Bilirubin 0.5, Aspartate Amino Transf (AST/SGOT) 85H, Alanine Aminotransferase (ALT/SGPT) 53, Alkaline Phosphatase 368H, Pro-B-Type Natriuretic Peptide 908H, Total Protein 6.7, Albumin 1.7L, Globulin 5.0, Albumin/Globulin Ratio 0.3L Height (Feet): 5 Height (Inches): 7.00 Weight (Pounds): 140 Objective Thin AA man non communicative NCAT (+) trach CTA RRR soft ND NT, (+) GT no edema Oli Amaya MD May 11, 2018 14:01
--- NOTE | 2018-05-11 14:34 | Pulmonology Progress Note ---
Assessment/Plan Assessment/Plan Assessment/Plan IMPRESSION respiratory failure possible sepsis chronic encephalopathy trach debility hypoxemia htn metabolic acidosis ho hypertension ho seizures abnormal imaging PLAN reviewed care currently on AC vent support and wean to off as able elevate head and monitor has been tolerating CPAP over the past 48 hours supportive care as outlined monitor ABG PRN suction PRN periodic imaging for change; noted infiltrate dc planning to snf follow clinically for change and monitor oxygen as needed monitor hemodynamics and adjust prognosis guarded at present fully dependent at present medications/laboratory data/nursing notes reviewed in detail note reviewed and edited care discussed with RN and RT CXR: Decreased bibasilar lung opacities since 05/06/2018, suggesting decreased edema, atelectasis, and/or pneumonia. Subjective ROS Limited/Unobtainable: Yes Allergies: Coded Allergies: No Known Allergies (Unverified , 01/27/17) Subjective care reviewed on vent full support in [place] comfortable at present family concerns noted Objective Last 24 Hour Vital Signs Date Time Temp Pulse Resp B/P (MAP) Pulse Ox O2 Delivery O2 Flow Rate FiO2 05/09/18 05:03 58 18 30 05/09/18 04:00 30 05/09/18 04:00 57 05/09/18 04:00 97.6 55 20 146/71 (96) 100 97.6 05/09/18 04:00 Mechanical Ventilator 05/09/18 03:16 56 14 30 05/09/18 01:01 59 21 30 05/09/18 00:00 30 05/09/18 00:00 Mechanical Ventilator 05/09/18 00:00 98.9 59 20 150/80 (103) 100 98.9 05/09/18 00:00 58 05/08/18 23:28 58 20 30 05/08/18 21:31 64 20 30 05/08/18 21:26 64 165/80 05/08/18 20:00 62 05/08/18 20:00 Mechanical Ventilator 05/08/18 20:00 30 05/08/18 20:00 97.7 62 20 164/92 (116) 100 97.7 05/08/18 19:12 64 16 30 05/08/18 17:28 60 24 30 05/08/18 16:21 64 05/08/18 16:00 30 05/08/18 16:00 Mechanical Ventilator 05/08/18 16:00 97.7 64 16 154/80 (104) 100 97.7 05/08/18 15:18 62 22 30 05/08/18 13:28 59 05/08/18 12:30 59 22 30 05/08/18 12:00 98.5 63 21 155/83 (107) 100 98.5 05/08/18 12:00 Mechanical Ventilator 05/08/18 12:00 30 05/08/18 10:40 77 24 30 05/08/18 09:50 99 05/08/18 09:04 68 156/80 05/08/18 08:31 68 05/08/18 08:30 71 30 30 Intake and Output 05/08/18 05/09/18 19:00 07:00 Intake Total 1390 ml 162.5 ml Output Total 1000 ml Balance 1390 ml -837.5 ml Free Water 180 ml IV Total 550 ml 102.5 ml Tube Feeding 660 ml 60 ml Output Urine Total 1000 ml # Bowel Movements 2 Objective WDWN NAD poorly responsive moderate breath sounds bilaterally with scattered rhonchi [id number] without MRG NABS nontender no HSM; gt no CCE cachectic poor response to pain skin noted comfortable at present reviewed and edited Laboratory Tests 05/08/18 08:15: Arterial Blood pH 7.480H, Arterial Blood Partial Pressure CO2 34.7L, Arterial Blood Partial Pressure O2 149.5H, Arterial Blood HCO3 25.3, Arterial Blood Oxygen Saturation 98.4, Arterial Blood Base Excess 1.9, Derek Test Positive 05/09/18 03:50: White Blood Count 3.8L, Red Blood Count 3.53L, Hemoglobin 8.5L, Hematocrit 27.6L , Mean Corpuscular Volume 78L, Mean Corpuscular Hemoglobin 24.0L, Mean Corpuscular Hemoglobin Concent 30.7L, Red Cell Distribution Width 17.9H, Platelet Count 252, Mean Platelet Volume 5.4L, Neutrophils (%) (Auto) 58.7, Lymphocytes (%) (Auto) 24.8, Monocytes (%) (Auto) 14.3H, Eosinophils (%) (Auto) 1.6, Basophils (%) (Auto) 0.7, Sodium Level 140, Potassium Level 4.1, Chloride Level 107, Carbon Dioxide Level 29, Anion Gap 4L, Blood Urea Nitrogen 23H, Creatinine 0.5L, Estimat Glomerular Filtration Rate , Glucose Level 69L, Calcium Level 8.3L, Magnesium Level 1.6L, Total Bilirubin 0.7, Aspartate Amino Transf (AST/SGOT) 159H, Alanine Aminotransferase (ALT/SGPT) 65, Alkaline Phosphatase 339H, Pro-B-Type Natriuretic Peptide 956H, Total Protein 6.0L, Albumin 1.6L, Globulin 4.4, Albumin/Globulin Ratio 0.4L, Alpha Fetoprotein [ Pending] Current Medications Medications (Trade) Dose Ordered Sig/Iram Route PRN Reason Start Time Stop Time Status Last Admin Dose Admin Acetaminophen (Tylenol) 650 mg Q4H PRN ORAL Fever/Headache/Mild Pain 05/02/18 18:30 05/26/18 18:29 05/07/18 23:29 Artificial Tears (Akwa-Tears) 2 drop FIVE TIMES A DAY PRN BOTH EYES Dry Eyes 05/02/18 19:00 05/31/18 11:44 05/06/18 08:32 Atorvastatin Calcium (Lipitor) 10 mg BEDTIME GT 05/02/18 21:00 05/28/18 20:59 05/08/18 21:26 Barium Sulfate (Readi-Cat 2) 450 ml NOW PRN ORAL Radiology Procedure 05/08/18 21:00 05/10/18 20:56 Ceftriaxone Sodium 1 gm/ Dextrose 55 ml @ 110 mls/hr DAILY IVPB 05/03/18 09:00 05/10/18 23:59 05/08/18 08:57 Chlorhexidine Gluconate (Letha-Hex 2%) 1 applic DAILY@2000 TOPIC 05/02/18 20:00 05/31/18 19:59 05/08/18 21:24 Clonidine HCl (Catapres Tab) 0.1 mg Q4H PRN ORAL SBP >160 05/02/18 19:00 05/28/18 10:59 Docusate Sodium (Colace) 100 mg DAILY ORAL 05/03/18 09:00 05/27/18 08:59 05/08/18 08:58 Ethambutol HCl (Myambutol) 800 mg DAILY ORAL 05/03/18 09:00 05/27/18 08:59 05/08/18 09:02 Fluconazole (Diflucan) 100 mg DAILY ORAL 05/04/18 09:00 05/11/18 08:59 05/08/18 09:00 Hydralazine HCl (Apresoline) 10 mg Q4H PRN IV SBP >160 05/02/18 18:18 05/28/18 18:17 Iopamidol (Isovue-300 100ml) 100 ml NOW PRN INJ Radiology Procedure 05/08/18 21:00 05/10/18 20:56 Isoniazid (Inh) 300 mg DAILY ORAL 05/03/18 09:00 05/27/18 08:59 05/08/18 09:00 Lansoprazole (Prevacid) 30 mg Q12HR ORAL 05/05/18 21:00 06/04/18 20:59 05/08/18 21:27 Levetiracetam 750 mg/Dextrose 102.5 ml @ 440 mls/hr Q12HR IV 05/02/18 21:00 05/29/18 00:59 05/08/18 21:26 Metoprolol Tartrate (Lopressor) 50 mg Q12HR GT 05/02/18 21:00 05/28/18 20:59 05/08/18 21:26 Multivitamins Therapeutic (Therapeutic Multivitamin) 1 ea DAILY ORAL 05/03/18 09:00 05/27/18 08:59 05/08/18 09:03 Ondansetron HCl (Zofran) 4 mg Q6H PRN IVP Nausea & Vomiting 05/02/18 18:19 05/28/18 18:18 Pyrazinamide (Pza) 1,000 mg DAILY ORAL 05/03/18 09:00 05/28/18 08:59 05/08/18 09:02 Pyridoxine HCl (Vitamin B6) 50 mg DAILY ORAL 05/03/18 09:00 05/27/18 08:59 05/08/18 09:02 Rifampin (Rifadin) 600 mg DAILY ORAL 05/03/18 09:00 05/27/18 08:59 05/08/18 09:00 Sennosides (Senokot) 2 tab BIDPRN PRN GT Constipation 05/02/18 18:20 05/27/18 18:19 Tamsulosin HCl (Flomax) 0.4 mg BEDTIME ORAL 05/02/18 21:00 05/27/18 20:59 05/08/18 21:26 Subjective ROS Limited/Unobtainable: Yes Allergies: Coded Allergies: No Known Allergies (Unverified , 01/27/17) Objective Last 24 Hour Vital Signs Date Time Temp Pulse Resp B/P (MAP) Pulse Ox O2 Delivery O2 Flow Rate FiO2 05/11/18 12:35 60 17 30 05/11/18 12:00 57 05/11/18 12:00 30 05/11/18 12:00 97.5 59 16 125/78 (94) 97 97.5 05/11/18 12:00 Mechanical Ventilator 05/11/18 09:42 71 127/73 05/11/18 08:20 83 19 30 05/11/18 08:00 Mechanical Ventilator 05/11/18 08:00 97.7 71 22 127/73 (91) 99 97.7 05/11/18 08:00 30 05/11/18 08:00 73 05/11/18 05:15 74 19 30 05/11/18 04:00 30 05/11/18 04:00 Mechanical Ventilator 05/11/18 04:00 98.4 72 22 107/69 (82) 98 98.4 05/11/18 03:39 72 05/11/18 03:00 72 18 30 05/11/18 01:10 68 22 30 05/11/18 00:00 30 05/11/18 00:00 Mechanical Ventilator 05/11/18 00:00 98.5 71 18 123/70 (87) 99 98.5 05/11/18 00:00 73 05/10/18 23:25 89 24 30 05/10/18 21:22 91 147/85 05/10/18 21:00 Mechanical Ventilator 05/10/18 20:58 90 27 30 05/10/18 20:00 T-piece 6.0 28 05/10/18 20:00 84 22 Mechanical Ventilator 30 05/10/18 20:00 97.9 91 28 147/85 (105) 99 97.9 05/10/18 20:00 30 05/10/18 20:00 Mechanical Ventilator 05/10/18 20:00 87 05/10/18 18:49 83 17 30 05/10/18 17:04 80 24 30 05/10/18 16:05 173/97 05/10/18 16:00 79 05/10/18 16:00 98.1 76 30 174/98 (123) 98 98.1 05/10/18 16:00 T-piece 8.0 05/10/18 16:00 30 Intake and Output 05/10/18 05/11/18 19:00 07:00 Intake Total 720 ml 937.5 ml Output Total 1100 ml 350 ml Balance -380 ml 587.5 ml Free Water 115 ml IV Total 102.5 ml Tube Feeding 720 ml 720 ml Output Urine Total 1100 ml 350 ml # Bowel Movements 2 Laboratory Tests 05/11/18 05:10: White Blood Count 7.2, Red Blood Count 4.30L, Hemoglobin 10.7L, Hematocrit 33.6L , Mean Corpuscular Volume 78L, Mean Corpuscular Hemoglobin 24.8L, Mean Corpuscular Hemoglobin Concent 31.7L, Red Cell Distribution Width 17.8H, Platelet Count 291, Mean Platelet Volume 5.3L, Neutrophils (%) (Auto) 60.1, Lymphocytes (%) (Auto) 21.5, Monocytes (%) (Auto) 17.4H, Eosinophils (%) (Auto) 0.6, Basophils (%) (Auto) 0.5, Sodium Level 140, Potassium Level 4.3, Chloride Level 106, Carbon Dioxide Level 27, Anion Gap 7, Blood Urea Nitrogen 37H, Creatinine 0.7, Estimat Glomerular Filtration Rate , Glucose Level 132H, Calcium Level 8.4L, Magnesium Level 2.0, Total Bilirubin 0.5, Aspartate Amino Transf (AST/SGOT) 85H, Alanine Aminotransferase (ALT/SGPT) 53, Alkaline Phosphatase 368H, Pro-B-Type Natriuretic Peptide 908H, Total Protein 6.7, Albumin 1.7L, Globulin 5.0, Albumin/Globulin Ratio 0.3L Current Medications Medications (Trade) Dose Ordered Sig/Iram Route PRN Reason Start Time Stop Time Status Last Admin Dose Admin Acetaminophen (Tylenol) 650 mg Q4H PRN ORAL Fever/Headache/Mild Pain 05/02/18 18:30 05/26/18 18:29 05/07/18 23:29 Artificial Tears (Akwa-Tears) 2 drop FIVE TIMES A DAY PRN BOTH EYES Dry Eyes 05/02/18 19:00 05/31/18 11:44 05/06/18 08:32 Ascorbic Acid (Vitamin C) 250 mg DAILY ORAL 05/11/18 09:00 06/10/18 08:59 05/11/18 09:42 Atorvastatin Calcium (Lipitor) 10 mg BEDTIME GT 05/02/18 21:00 05/28/18 20:59 05/10/18 21:22 Chlorhexidine Gluconate (Letha-Hex 2%) 1 applic DAILY@2000 TOPIC 05/02/18 20:00 05/31/18 19:59 05/10/18 21:21 Clonidine HCl (Catapres Tab) 0.1 mg Q4H PRN ORAL SBP >160 05/02/18 19:00 05/28/18 10:59 05/10/18 16:05 Docusate Sodium (Colace) 100 mg DAILY ORAL 05/03/18 09:00 05/27/18 08:59 05/11/18 09:40 Ethambutol HCl (Myambutol) 800 mg DAILY ORAL 05/03/18 09:00 05/27/18 08:59 05/11/18 09:41 Hydralazine HCl (Apresoline) 10 mg Q4H PRN IV SBP >160 05/02/18 18:18 05/28/18 18:17 Isoniazid (Inh) 300 mg DAILY ORAL 05/03/18 09:00 05/27/18 08:59 05/11/18 09:43 Lansoprazole (Prevacid) 30 mg Q12HR ORAL 05/05/18 21:00 06/04/18 20:59 05/11/18 09:40 Levetiracetam 750 mg/Dextrose 102.5 ml @ 440 mls/hr Q12HR IV 05/02/18 21:00 05/29/18 00:59 05/11/18 09:39 Metoprolol Tartrate (Lopressor) 50 mg Q12HR GT 05/02/18 21:00 05/28/18 20:59 05/11/18 09:42 Multivitamins Therapeutic (Therapeutic Multivitamin) 1 ea DAILY ORAL 05/03/18 09:00 05/27/18 08:59 05/11/18 09:42 Ondansetron HCl (Zofran) 4 mg Q6H PRN IVP Nausea & Vomiting 05/02/18 18:19 05/28/18 18:18 Pyrazinamide (Pza) 1,000 mg DAILY ORAL 05/03/18 09:00 05/28/18 08:59 05/11/18 09:43 Pyridoxine HCl (Vitamin B6) 50 mg DAILY ORAL 05/03/18 09:00 05/27/18 08:59 05/11/18 09:43 Rifampin (Rifadin) 600 mg DAILY ORAL 05/03/18 09:00 05/27/18 08:59 05/11/18 09:42 Sennosides (Senokot) 2 tab BIDPRN PRN GT Constipation 05/02/18 18:20 05/27/18 18:19 Tamsulosin HCl (Flomax) 0.4 mg BEDTIME ORAL 05/02/18 21:00 05/27/18 20:59 05/10/18 21:22 Jones Rasmussen MD May 11, 2018 14:34
--- NOTE | 2018-05-11 15:13 | Neurology Progress Note ---
Interim History Interim History Interim History Mr. Narvaez was sleeping when I went to see him. He could be aroused briefly. He would close his eyes even when kept occupied. He made very brief eye contact. He turned his eyes and head towards the side of vocal stimulation. He blinked to threat. He was non verbal. He continues to be seizure-free. He continues to be non-functional. His cardio-respiratory function is stable. Review of Systems Neuro Review of Systems Unable to obtain. Objective Physical Exam Last Vital Signs Date Time Temp Pulse Resp B/P (MAP) Pulse Ox O2 Delivery O2 Flow Rate FiO2 05/11/18 12:35 60 17 30 05/11/18 12:00 97.5 125/78 (94) 97 97.5 05/11/18 12:00 Mechanical Ventilator 05/10/18 20:00 6.0 Laboratory Tests Test 05/11/18 05:10 White Blood Count 7.2 K/UL (4.8-10.8) Red Blood Count 4.30 M/UL (4.70-6.10) L Hemoglobin 10.7 G/DL (14.2-18.0) L Hematocrit 33.6 % (42.0-52.0) L Mean Corpuscular Volume 78 FL (80-99) L Mean Corpuscular Hemoglobin 24.8 PG (27.0-31.0) L Mean Corpuscular Hemoglobin Concent 31.7 G/DL (32.0-36.0) L Red Cell Distribution Width 17.8 % (11.6-14.8) H Platelet Count 291 K/UL (150-450) Mean Platelet Volume 5.3 FL (6.5-10.1) L Neutrophils (%) (Auto) 60.1 % (45.0-75.0) Lymphocytes (%) (Auto) 21.5 % (20.0-45.0) Monocytes (%) (Auto) 17.4 % (1.0-10.0) H Eosinophils (%) (Auto) 0.6 % (0.0-3.0) Basophils (%) (Auto) 0.5 % (0.0-2.0) Sodium Level 140 MMOL/L (136-145) Potassium Level 4.3 MMOL/L (3.5-5.1) Chloride Level 106 MMOL/L (98-107) Carbon Dioxide Level 27 MMOL/L (21-32) Anion Gap 7 mmol/L (5-15) Blood Urea Nitrogen 37 mg/dL (7-18) H Creatinine 0.7 MG/DL (0.55-1.30) Estimat Glomerular Filtration Rate mL/min (>60) Glucose Level 132 MG/DL (74-106) H Calcium Level 8.4 MG/DL (8.5-10.1) L Magnesium Level 2.0 MG/DL (1.8-2.4) Total Bilirubin 0.5 MG/DL (0.2-1.0) Aspartate Amino Transf (AST/SGOT) 85 U/L (15-37) H Alanine Aminotransferase (ALT/SGPT) 53 U/L (12-78) Alkaline Phosphatase 368 U/L (46-116) H Pro-B-Type Natriuretic Peptide 908 pg/mL (0-125) H Total Protein 6.7 G/DL (6.4-8.2) Albumin 1.7 G/DL (3.4-5.0) L Globulin 5.0 g/dL Albumin/Globulin Ratio 0.3 (1.0-2.7) L Neurologic Exam Objective PHYSICAL EXAMINATION: GENERAL: He is a well-developed, ill-looking black gentleman, lying in bed, in no acute distress. HEAD: Normocephalic and atraumatic. EENT: Examination benign. NECK: No neck rigidity was observed. NEUROLOGICAL EXAMINATION: MENTAL STATUS EXAMINATION: When aroused, he could barely keep his eyes open for a few seconds and would then rapidly go back to sleep. He made brief eye contact. He turned his eyes and head towards the side of vocal stimulation. He blinked to threat. He was non verbal. SPEECH: Could not be tested. LANGUAGE: Could not be tested. CRANIAL NERVE EXAMINATION: II: He did blink to threat. III, IV & : External ocular movements were present. The pupils were 3 mm in diameter, equal, round, regular, and reactive sluggishly to light. V & VII: The corneal reflexes were present bilaterally. However, the right- sided reflex was significantly diminished compared to the left. VIII: He was able to hear and had no nystagmus. IX & X: Gag reflex was suppressed. XI: The sternocleidomastoids and trapezii functioned minimally. XII: The tongue was in the midline. MOTOR SYSTEM: The tone was increased in all four extremities with spasticity more marked on the right than on the left. Examination of muscle mass revealed generalized muscle wasting, again more marked on the right than on the left. Examination of power was impossible to perform on individual muscle groups. However, he did move all four extremities on deep pain with possibly right greater than left-sided weakness. SENSORY EXAMINATION: He responded appropriately to deep pain with less vigorous responses on the right side compared to the left. REFLEXES: Trace+ and bilaterally symmetrical at the biceps, triceps, brachioradialis. 0 at both knees and ankles. The plantar responses were extensor bilaterally. COORDINATION, STANCE & GAIT: Could not be tested. Impression/Recommendations Diagnostic Impression 1. Mr. Sagar Narvaez is a 72-year-old, [place] gentleman, of unknown handedness, who does have a past history of cerebrovascular disease with a prior stroke, pulmonary tuberculosis, chronic respiratory failure for which he has tracheostomy, and dysphagia for which he has a gastrostomy; who lives in long term where he was noted to have an alteration in his mental state in the form of increased lethargy. He was thus brought into the [facility] emergency room and following admission, he apparently spiked a fever to 103 degrees Fahrenheit followed by multiple seizures. He was cooled down, given Ativan and started on Keppra and has been seizure-free since then. 2. He was sleeping when I went to see him. He could be aroused briefly. He would close his eyes even when kept occupied. He made very brief eye contact. He turned his eyes and head towards the side of vocal stimulation. He blinked to threat. He was non verbal. He continues to be seizure-free. He continues to be non-functional. His cardio-respiratory function is stable. 3. On neurological examination, at this time, when aroused, he wakes up for a few seconds but cannot maintain arousal. He makes brief eye contact. He also turns his eyes and head towards the side of vocal stimulation. He blinks to threat. He is non verbal. His corneal reflex is diminished on the right side compared to the left. 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 In addition, he responds to deep pain, less on the right than on the left. His deep tendon reflexes are globally diminished and his plantar responses are extensor bilaterally. 4. Laboratory data on my initial evaluation revealed that his WBC count is creeping up from 4.4 to 9.5. He is significantly anemic with a hemoglobin of 8.8 G. His chemistry panel reveals that his bilirubin is elevated to 1.1. His alkaline phosphatase is elevated to 367, his AST is elevated to 52. His albumin is low at 1.9. His arterial blood gas reveals a pCO2 of 29 and a pO2 of 59 with a pH of 7.43. His urinalysis reveals 2+ leukocyte esterase with 2-4 RBCs and 2-4 WBCs per high-power field. 5. The EEG done on 04/27/18 revealed a moderately severe encephalopathy and left > right hemispheric dysfunction. No inter-ictal discharges were seen. 6. The CT of the brain done on 04/30/18 revealed multiple old bilateral cerebral infarcts involving the left > right brain. 7. 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 8. His mental state is still waxing and waning due to a continued encephalopathy. Recommendations 1. Continue present management. 2. Continue Keppra 750 mg q.12 hours. 3. Agree with plan to transfer to SNF. Mercedes Coelho M.D., M.S.P.Rosa M. MERCEDES COELHO May 11, 2018 15:13
[2018-05-11] MEDS ORDERED: Tubing IV Secondary IV ONE (15:42)
[2018-05-11] MEDS ORDERED: NS 275ml ONE (15:42)
--- NOTE | 2018-05-11 15:55 | General Progress Note ---
Assessment/Plan Problem List: (1) Status epilepticus ICD Codes: G40.901 - Epilepsy, unspecified, not intractable, with status epilepticus SNOMED: 361078332 (2) Encephalopathy acute ICD Codes: G93.40 - Encephalopathy, unspecified SNOMED: 57390067, 167727829 (3) Probable sepsis ICD Codes: A41.9 - Sepsis, unspecified organism SNOMED: 959038421 (4) Dementia ICD Codes: F03.90 - Unspecified dementia without behavioral disturbance SNOMED: 34969134 (5) Encephalopathy ICD Codes: G93.40 - Encephalopathy, unspecified SNOMED: 15371745 (6) Sepsis ICD Codes: A41.9 - Sepsis, unspecified organism SNOMED: 92447998 (7) Pulmonary tuberculosis ICD Codes: A15.0 - Tuberculosis of lung SNOMED: 418601086 (8) Dehydration ICD Codes: E86.0 - Dehydration SNOMED: 19358393 (9) Altered level of consciousness ICD Codes: R40.4 - Transient alteration of awareness SNOMED: 7924596 Assessment/Plan vent prn wean as able abx per ID tb rx gt feeds wound care sz rx stable for dc from med standpoint family appeal upheld by medicare. cannot discharge for now Subjective ROS Limited/Unobtainable: No Constitutional: Reports: malaise, weakness HEENT: Reports: no symptoms Cardiovascular: Reports: no symptoms Respiratory: Reports: no symptoms Gastrointestinal/Abdominal: Reports: difficulty swallowing Genitourinary: Reports: no symptoms Neurologic/Psychiatric: Reports: pre-existing deficit, seizure Endocrine: Reports: no symptoms Hematologic/Lymphatic: Reports: anemia Allergies: Coded Allergies: No Known Allergies (Unverified , 01/27/17) All Systems: reviewed and negative except above Subjective no real change. no fever or chills. back on the vent at families request. tolerating feeds. no szs noted. Per charge nurse, families appeal upheld. Pt determined by [facility] not ready for discharge Objective Last 24 Hour Vital Signs Date Time Temp Pulse Resp B/P (MAP) Pulse Ox O2 Delivery O2 Flow Rate FiO2 05/11/18 12:35 60 17 30 05/11/18 12:00 57 05/11/18 12:00 30 05/11/18 12:00 97.5 59 16 125/78 (94) 97 97.5 05/11/18 12:00 Mechanical Ventilator 05/11/18 09:42 71 127/73 05/11/18 08:20 83 19 30 05/11/18 08:00 Mechanical Ventilator 05/11/18 08:00 97.7 71 22 127/73 (91) 99 97.7 05/11/18 08:00 30 05/11/18 08:00 73 05/11/18 05:15 74 19 30 05/11/18 04:00 30 05/11/18 04:00 Mechanical Ventilator 05/11/18 04:00 98.4 72 22 107/69 (82) 98 98.4 05/11/18 03:39 72 05/11/18 03:00 72 18 30 05/11/18 01:10 68 22 30 05/11/18 00:00 30 05/11/18 00:00 Mechanical Ventilator 05/11/18 00:00 98.5 71 18 123/70 (87) 99 98.5 05/11/18 00:00 73 05/10/18 23:25 89 24 30 05/10/18 21:22 91 147/85 05/10/18 21:00 Mechanical Ventilator 05/10/18 20:58 90 27 30 05/10/18 20:00 T-piece 6.0 28 05/10/18 20:00 84 22 Mechanical Ventilator 30 05/10/18 20:00 97.9 91 28 147/85 (105) 99 97.9 05/10/18 20:00 30 05/10/18 20:00 Mechanical Ventilator 05/10/18 20:00 87 05/10/18 18:49 83 17 30 05/10/18 17:04 80 24 30 05/10/18 16:05 173/97 05/10/18 16:00 79 05/10/18 16:00 98.1 76 30 174/98 (123) 98 98.1 05/10/18 16:00 T-piece 8.0 05/10/18 16:00 30 Intake and Output 05/10/18 05/11/18 19:00 07:00 Intake Total 720 ml 937.5 ml Output Total 1100 ml 350 ml Balance -380 ml 587.5 ml Free Water 115 ml IV Total 102.5 ml Tube Feeding 720 ml 720 ml Output Urine Total 1100 ml 350 ml # Bowel Movements 2 Laboratory Tests 05/11/18 05:10: White Blood Count 7.2, Red Blood Count 4.30L, Hemoglobin 10.7L, Hematocrit 33.6L , Mean Corpuscular Volume 78L, Mean Corpuscular Hemoglobin 24.8L, Mean Corpuscular Hemoglobin Concent 31.7L, Red Cell Distribution Width 17.8H, Platelet Count 291, Mean Platelet Volume 5.3L, Neutrophils (%) (Auto) 60.1, Lymphocytes (%) (Auto) 21.5, Monocytes (%) (Auto) 17.4H, Eosinophils (%) (Auto) 0.6, Basophils (%) (Auto) 0.5, Sodium Level 140, Potassium Level 4.3, Chloride Level 106, Carbon Dioxide Level 27, Anion Gap 7, Blood Urea Nitrogen 37H, Creatinine 0.7, Estimat Glomerular Filtration Rate , Glucose Level 132H, Calcium Level 8.4L, Magnesium Level 2.0, Total Bilirubin 0.5, Aspartate Amino Transf (AST/SGOT) 85H, Alanine Aminotransferase (ALT/SGPT) 53, Alkaline Phosphatase 368H, Pro-B-Type Natriuretic Peptide 908H, Total Protein 6.7, Albumin 1.7L, Globulin 5.0, Albumin/Globulin Ratio 0.3L Height (Feet): 5 Height (Inches): 7.00 Weight (Pounds): 140 Objective General Appearance: WD/WN, cachetic, thin Neck: supple Cardiovascular: tachycardia Respiratory/Chest: rhonchi - bilaterally Abdomen: normal bowel sounds, non tender, soft, no organomegaly Edema: no edema noted Arm (L), no edema noted Arm (R), no edema noted Leg (L), no edema noted Leg (R), no edema noted Pedal (L), no edema noted Pedal (R), no edema noted Generalized Jarrod Vásquez MD May 11, 2018 15:55
[2018-05-11] MEDS: Dyna-Hex 2% Top Sol 2oz TOPIC SCH (21:42)
[2018-05-11] MEDS: Tamsulosin 0.4mg cap ORAL SCH (21:43)
[2018-05-12] VITALS: BP 118/64
--- NOTE | 2018-05-12 | Progress Note ---
DATE: 05/11/2018 CARDIOLOGY PROGRESS NOTE SUBJECTIVE: The patient is on ventilator support via tracheostomy. Monitored rhythm sinus with atrial ectopics, still with secretions, tolerating feedings. OBJECTIVE: VITAL SIGNS: Blood pressure 125/78, pulse 59, respirations 16. LUNGS: Coarse breath sounds. Few rhonchi. HEART: Regular rhythm and rate. Normal S1, S2. ABDOMEN: Soft. G-tube intact. EXTREMITIES: No edema. LABORATORY AND DIAGNOSTIC DATA: Chest x-ray reveals decreased lung opacity. White count 7, hemoglobin 10.7. Potassium 4.3, BUN 37, creatinine 0.7. Pro-natriuretic peptide is 908, albumin 1.7. Magnesium 2.0. IMPRESSION: Improving. PLAN: 1. Additional diuresis and replacement of electrolytes. 2. Other cardiovascular therapy without change. Jones Arauz M.D. DR: JEVON JOB#: [id number] CC:
[2018-05-12 04:00] VITALS: BP 137/73
--- NOTE | 2018-05-12 07:57 | General Progress Note ---
Assessment/Plan Problem List: (1) Status epilepticus ICD Codes: G40.901 - Epilepsy, unspecified, not intractable, with status epilepticus SNOMED: 209618065 (2) Encephalopathy acute ICD Codes: G93.40 - Encephalopathy, unspecified SNOMED: 65348234, 636981190 (3) Probable sepsis ICD Codes: A41.9 - Sepsis, unspecified organism SNOMED: 413083512 (4) Dementia ICD Codes: F03.90 - Unspecified dementia without behavioral disturbance SNOMED: 67950368 (5) Encephalopathy ICD Codes: G93.40 - Encephalopathy, unspecified SNOMED: 85850610 (6) Sepsis ICD Codes: A41.9 - Sepsis, unspecified organism SNOMED: 71971267 (7) Pulmonary tuberculosis ICD Codes: A15.0 - Tuberculosis of lung SNOMED: 504200220 (8) Dehydration ICD Codes: E86.0 - Dehydration SNOMED: 57233951 (9) Altered level of consciousness ICD Codes: R40.4 - Transient alteration of awareness SNOMED: 1111184 Status: stable, progressing Assessment/Plan vent prn wean as able abx per ID tb rx gt feeds wound care sz rx stable for dc from med standpoint family appeal upheld by medicare. cannot discharge for now will d/w case checker dc planning Subjective ROS Limited/Unobtainable: Yes Constitutional: Reports: malaise, weakness HEENT: Reports: no symptoms Cardiovascular: Reports: no symptoms Respiratory: Reports: cough Gastrointestinal/Abdominal: Reports: no symptoms Genitourinary: Reports: no symptoms Neurologic/Psychiatric: Reports: pre-existing deficit, seizure Endocrine: Reports: no symptoms Hematologic/Lymphatic: Reports: no symptoms Allergies: Coded Allergies: No Known Allergies (Unverified , 01/27/17) All Systems: reviewed and negative except above Subjective only tolerated 5-10 minutes off the vent yesterday. no other events. poorly responsive. no szs. tolerating feeds. cxr shows improving infiltrates. Objective Last 24 Hour Vital Signs Date Time Temp Pulse Resp B/P (MAP) Pulse Ox O2 Delivery O2 Flow Rate FiO2 05/12/18 05:06 70 20 30 05/12/18 04:00 97.7 70 20 137/73 (94) 100 97.7 05/12/18 04:00 Mechanical Ventilator 05/12/18 04:00 30 05/12/18 04:00 69 05/12/18 03:14 72 19 30 05/12/18 01:04 65 21 30 05/12/18 00:00 59 05/12/18 00:00 Mechanical Ventilator 05/12/18 00:00 97.9 59 20 118/64 (82) 100 97.9 05/11/18 23:04 69 16 30 05/11/18 21:42 69 119/68 05/11/18 21:16 69 21 30 05/11/18 20:00 Mechanical Ventilator 05/11/18 20:00 30 05/11/18 20:00 64 05/11/18 20:00 97.8 70 18 119/68 (85) 100 97.8 05/11/18 19:26 69 19 30 05/11/18 17:32 70 12 30 05/11/18 16:00 60 05/11/18 16:00 97.2 65 16 119/65 (83) 100 97.2 05/11/18 16:00 Mechanical Ventilator 05/11/18 16:00 30 05/11/18 12:35 60 17 30 05/11/18 12:00 57 05/11/18 12:00 30 05/11/18 12:00 97.5 59 16 125/78 (94) 97 97.5 05/11/18 12:00 Mechanical Ventilator 05/11/18 09:42 71 127/73 05/11/18 08:20 83 19 30 05/11/18 08:00 Mechanical Ventilator 05/11/18 08:00 97.7 71 22 127/73 (91) 99 97.7 05/11/18 08:00 30 05/11/18 08:00 73 Intake and Output 05/11/18 05/12/18 19:00 07:00 Intake Total 1270 ml 1410 ml Output Total 800 ml Balance 1270 ml 610 ml Free Water 110 ml 150 ml IV Total 440 ml 440 ml Tube Feeding 720 ml 720 ml Other 100 ml Output Urine Total 800 ml Height (Feet): 5 Height (Inches): 7.00 Weight (Pounds): 141 Objective General Appearance: WD/WN, cachetic, thin Neck: supple Cardiovascular: tachycardia Respiratory/Chest: rhonchi - bilaterally Abdomen: normal bowel sounds, non tender, soft, no organomegaly Edema: no edema noted Arm (L), no edema noted Arm (R), no edema noted Leg (L), no edema noted Leg (R), no edema noted Pedal (L), no edema noted Pedal (R), no edema noted Generalized Jarrod Vásquez MD May 12, 2018 07:57
[2018-05-12 08:00] VITALS: BP 139/71
[2018-05-12] MEDS: Docusate 100mg/10ml Liq ORAL SCH (08:14)
[2018-05-12] MEDS: Pyridoxine 50mg tab ORAL SCH (08:14)
[2018-05-12] MEDS: Isoniazid 300mg tab ORAL SCH (08:14)
[2018-05-12] MEDS: Ascorbic Acid 500mg tab ORAL SCH (08:15)
[2018-05-12] MEDS: Metoprolol Tartrate 50mg tab GT SCH ×2 (08:15→21:30)
[2018-05-12] MEDS: Multivitamin w/Minerals tab ORAL SCH (08:26)
[2018-05-12] MEDS: levETIRAcetam 750 MG in D5W 95 ML IV SCH ×2 (10:24→21:30)
--- NOTE | 2018-05-12 11:35 | Pulmonology Progress Note ---
Assessment/Plan Assessment/Plan IMPRESSION respiratory failure possible sepsis chronic encephalopathy trach debility hypoxemia htn metabolic acidosis ho hypertension ho seizures abnormal imaging PLAN reviewed care currently on AC- trying to wean vent support reviewed elevate head and monitor monitor ABG PRN suction PRN periodic imaging for change; noted infiltrate but improved dc planning to snf follow clinically for change and monitor oxygen as needed monitor hemodynamics and adjust prognosis guarded at present fully dependent at present medications/laboratory data/nursing notes reviewed in detail note reviewed and edited care discussed with RN and RT Subjective ROS Limited/Unobtainable: Yes Allergies: Coded Allergies: No Known Allergies (Unverified , 01/27/17) Subjective care reviewed on vent full support weekend events noted tried off vent Objective Last 24 Hour Vital Signs Date Time Temp Pulse Resp B/P (MAP) Pulse Ox O2 Delivery O2 Flow Rate FiO2 05/12/18 08:15 69 139/71 05/12/18 08:00 97.4 69 20 139/71 (93) 20 97.4 05/12/18 08:00 Mechanical Ventilator 05/12/18 08:00 30 05/12/18 08:00 70 05/12/18 07:58 70 17 30 05/12/18 05:06 70 20 30 05/12/18 04:00 97.7 70 20 137/73 (94) 100 97.7 05/12/18 04:00 Mechanical Ventilator 05/12/18 04:00 30 05/12/18 04:00 69 05/12/18 03:14 72 19 30 05/12/18 01:04 65 21 30 05/12/18 00:00 59 05/12/18 00:00 Mechanical Ventilator 05/12/18 00:00 97.9 59 20 118/64 (82) 100 97.9 05/11/18 23:04 69 16 30 05/11/18 21:42 69 119/68 05/11/18 21:16 69 21 30 05/11/18 20:00 Mechanical Ventilator 05/11/18 20:00 30 05/11/18 20:00 64 05/11/18 20:00 97.8 70 18 119/68 (85) 100 97.8 05/11/18 19:26 69 19 30 05/11/18 17:32 70 12 30 05/11/18 16:00 60 05/11/18 16:00 97.2 65 16 119/65 (83) 100 97.2 05/11/18 16:00 Mechanical Ventilator 05/11/18 16:00 30 05/11/18 12:35 60 17 30 05/11/18 12:00 57 05/11/18 12:00 30 05/11/18 12:00 97.5 59 16 125/78 (94) 97 97.5 05/11/18 12:00 Mechanical Ventilator Intake and Output 05/11/18 05/12/18 19:00 07:00 Intake Total 1270 ml 1410 ml Output Total 800 ml Balance 1270 ml 610 ml Free Water 110 ml 150 ml IV Total 440 ml 440 ml Tube Feeding 720 ml 720 ml Other 100 ml Output Urine Total 800 ml Objective WDWN NAD poorly responsive moderate breath sounds bilaterally with some rhonchi [id number] without MRG NABS nontender no HSM; gt no CCE cachectic as is poor response to pain skin noted comfortable at present reviewed and edited Current Medications Medications (Trade) Dose Ordered Sig/Iram Route PRN Reason Start Time Stop Time Status Last Admin Dose Admin Acetaminophen (Tylenol) 650 mg Q4H PRN ORAL Fever/Headache/Mild Pain 05/02/18 18:30 05/26/18 18:29 05/07/18 23:29 Artificial Tears (Akwa-Tears) 2 drop FIVE TIMES A DAY PRN BOTH EYES Dry Eyes 05/02/18 19:00 05/31/18 11:44 05/06/18 08:32 Ascorbic Acid (Vitamin C) 250 mg DAILY ORAL 05/11/18 09:00 06/10/18 08:59 05/12/18 08:15 Atorvastatin Calcium (Lipitor) 10 mg BEDTIME GT 05/02/18 21:00 05/28/18 20:59 05/11/18 21:42 Chlorhexidine Gluconate (Letha-Hex 2%) 1 applic DAILY@2000 TOPIC 05/02/18 20:00 05/31/18 19:59 05/11/18 21:42 Clonidine HCl (Catapres Tab) 0.1 mg Q4H PRN ORAL SBP >160 05/02/18 19:00 05/28/18 10:59 05/10/18 16:05 Docusate Sodium (Colace) 100 mg DAILY ORAL 05/03/18 09:00 05/27/18 08:59 05/12/18 08:14 Ethambutol HCl (Myambutol) 800 mg DAILY ORAL 05/03/18 09:00 05/27/18 08:59 05/12/18 08:14 Hydralazine HCl (Apresoline) 10 mg Q4H PRN IV SBP >160 05/02/18 18:18 05/28/18 18:17 Isoniazid (Inh) 300 mg DAILY ORAL 05/03/18 09:00 05/27/18 08:59 05/12/18 08:14 Lansoprazole (Prevacid) 30 mg Q12HR ORAL 05/05/18 21:00 06/04/18 20:59 05/12/18 08:14 Levetiracetam 750 mg/Dextrose 102.5 ml @ 440 mls/hr Q12HR IV 05/02/18 21:00 05/29/18 00:59 05/12/18 10:24 Metoprolol Tartrate (Lopressor) 50 mg Q12HR GT 05/02/18 21:00 05/28/18 20:59 05/12/18 08:15 Multivitamins Therapeutic (Therapeutic Multivitamin) 1 ea DAILY ORAL 05/03/18 09:00 05/27/18 08:59 05/12/18 08:26 Ondansetron HCl (Zofran) 4 mg Q6H PRN IVP Nausea & Vomiting 05/02/18 18:19 05/28/18 18:18 Pyrazinamide (Pza) 1,000 mg DAILY ORAL 05/03/18 09:00 05/28/18 08:59 05/12/18 08:14 Pyridoxine HCl (Vitamin B6) 50 mg DAILY ORAL 05/03/18 09:00 05/27/18 08:59 05/12/18 08:14 Rifampin (Rifadin) 600 mg DAILY ORAL 05/03/18 09:00 05/27/18 08:59 05/12/18 08:14 Sennosides (Senokot) 2 tab BIDPRN PRN GT Constipation 05/02/18 18:20 05/27/18 18:19 Tamsulosin HCl (Flomax) 0.4 mg BEDTIME ORAL 05/02/18 21:00 05/27/18 20:59 05/11/18 21:43 Nakul Cisse MD May 12, 2018 11:35
--- NOTE | 2018-05-12 11:39 | Infectious Diseases Prog Note ---
Assessment/Plan Assessment/Plan antibiotics : ceftriaxone, fluconazole, isoniazid, rifampin, pyrazinamide, ethambutol, pyridoxine A 1. pulmonary TB 2. e.coli pneumonia s/p rx 3. fungal UTI s/p rx 4. respiratory failure 5. encephalopathy 6. increased LFT improving P 1. continue isoniazid, rifampin, pyrazinamide, ethambutol, pyridoxine 2. will follow up cultures Subjective ROS Limited/Unobtainable: Yes Allergies: Coded Allergies: No Known Allergies (Unverified , 01/27/17) Objective Vital Signs Last 24 Hour Vital Signs Date Time Temp Pulse Resp B/P (MAP) Pulse Ox O2 Delivery O2 Flow Rate FiO2 05/12/18 08:15 69 139/71 05/12/18 08:00 97.4 69 20 139/71 (93) 20 97.4 05/12/18 08:00 Mechanical Ventilator 05/12/18 08:00 30 05/12/18 08:00 70 05/12/18 07:58 70 17 30 05/12/18 05:06 70 20 30 05/12/18 04:00 97.7 70 20 137/73 (94) 100 97.7 05/12/18 04:00 Mechanical Ventilator 05/12/18 04:00 30 05/12/18 04:00 69 05/12/18 03:14 72 19 30 05/12/18 01:04 65 21 30 05/12/18 00:00 59 05/12/18 00:00 Mechanical Ventilator 05/12/18 00:00 97.9 59 20 118/64 (82) 100 97.9 05/11/18 23:04 69 16 30 05/11/18 21:42 69 119/68 05/11/18 21:16 69 21 30 05/11/18 20:00 Mechanical Ventilator 05/11/18 20:00 30 05/11/18 20:00 64 05/11/18 20:00 97.8 70 18 119/68 (85) 100 97.8 05/11/18 19:26 69 19 30 05/11/18 17:32 70 12 30 05/11/18 16:00 60 05/11/18 16:00 97.2 65 16 119/65 (83) 100 97.2 05/11/18 16:00 Mechanical Ventilator 05/11/18 16:00 30 05/11/18 12:35 60 17 30 05/11/18 12:00 57 05/11/18 12:00 30 05/11/18 12:00 97.5 59 16 125/78 (94) 97 97.5 05/11/18 12:00 Mechanical Ventilator Height (Feet): 5 Height (Inches): 7.00 Weight (Pounds): 141 HEENT: status post trach Respiratory/Chest: lungs clear Cardiovascular: normal rate, regular rhythm, no gallop/murmur Abdomen: soft, non tender, other - GT Extremities: no edema Current Medications Medications (Trade) Dose Ordered Sig/Iram Route PRN Reason Start Time Stop Time Status Last Admin Dose Admin Acetaminophen (Tylenol) 650 mg Q4H PRN ORAL Fever/Headache/Mild Pain 05/02/18 18:30 05/26/18 18:29 05/07/18 23:29 Artificial Tears (Akwa-Tears) 2 drop FIVE TIMES A DAY PRN BOTH EYES Dry Eyes 05/02/18 19:00 05/31/18 11:44 05/06/18 08:32 Ascorbic Acid (Vitamin C) 250 mg DAILY ORAL 05/11/18 09:00 06/10/18 08:59 05/12/18 08:15 Atorvastatin Calcium (Lipitor) 10 mg BEDTIME GT 05/02/18 21:00 05/28/18 20:59 05/11/18 21:42 Chlorhexidine Gluconate (Letha-Hex 2%) 1 applic DAILY@1999 TOPIC 05/02/18 20:00 05/31/18 19:59 05/11/18 21:42 Clonidine HCl (Catapres Tab) 0.1 mg Q4H PRN ORAL SBP >160 05/02/18 19:00 05/28/18 10:59 05/10/18 16:05 Docusate Sodium (Colace) 100 mg DAILY ORAL 05/03/18 09:00 05/27/18 08:59 05/12/18 08:14 Ethambutol HCl (Myambutol) 800 mg DAILY ORAL 05/03/18 09:00 05/27/18 08:59 05/12/18 08:14 Hydralazine HCl (Apresoline) 10 mg Q4H PRN IV SBP >160 05/02/18 18:18 05/28/18 18:17 Isoniazid (Inh) 300 mg DAILY ORAL 05/03/18 09:00 05/27/18 08:59 05/12/18 08:14 Lansoprazole (Prevacid) 30 mg Q12HR ORAL 05/05/18 21:00 06/04/18 20:59 05/12/18 08:14 Levetiracetam 750 mg/Dextrose 102.5 ml @ 440 mls/hr Q12HR IV 05/02/18 21:00 05/29/18 00:59 05/12/18 10:24 Metoprolol Tartrate (Lopressor) 50 mg Q12HR GT 05/02/18 21:00 05/28/18 20:59 05/12/18 08:15 Multivitamins Therapeutic (Therapeutic Multivitamin) 1 ea DAILY ORAL 05/03/18 09:00 05/27/18 08:59 05/12/18 08:26 Ondansetron HCl (Zofran) 4 mg Q6H PRN IVP Nausea & Vomiting 05/02/18 18:19 05/28/18 18:18 Pyrazinamide (Pza) 1,000 mg DAILY ORAL 05/03/18 09:00 05/28/18 08:59 05/12/18 08:14 Pyridoxine HCl (Vitamin B6) 50 mg DAILY ORAL 05/03/18 09:00 05/27/18 08:59 05/12/18 08:14 Rifampin (Rifadin) 600 mg DAILY ORAL 05/03/18 09:00 05/27/18 08:59 05/12/18 08:14 Sennosides (Senokot) 2 tab BIDPRN PRN GT Constipation 05/02/18 18:20 05/27/18 18:19 Tamsulosin HCl (Flomax) 0.4 mg BEDTIME ORAL 05/02/18 21:00 05/27/18 20:59 05/11/18 21:43 RENÉE RICHARDSON May 12, 2018 11:39
[2018-05-12 12:00] VITALS: BP 142/85
--- NOTE | 2018-05-12 12:18 | Pulmonology Progress Note ---
Assessment/Plan Assessment/Plan IMPRESSION respiratory failure, vent dependent possible sepsis chronic encephalopathy trach debility hypoxemia htn metabolic acidosis ho hypertension ho seizures abnormal imaging PLAN reviewed care currently on AC- trying to wean but unable vent dependent elevate head and monitor monitor ABG PRN suction PRN periodic imaging for change; noted infiltrate but improved dc planning to snf- needs chronic vent management follow clinically for change and monitor oxygen as needed monitor hemodynamics and adjust prognosis guarded at present fully dependent at present medications/laboratory data/nursing notes reviewed in detail note reviewed and edited care discussed with RN and RT Subjective Allergies: Coded Allergies: No Known Allergies (Unverified , 01/27/17) Subjective care reviewed on vent full support weekend events noted tried off vent Objective Last 24 Hour Vital Signs Date Time Temp Pulse Resp B/P (MAP) Pulse Ox O2 Delivery O2 Flow Rate FiO2 05/12/18 11:53 70 17 30 05/12/18 09:30 70 17 30 05/12/18 08:15 69 139/71 05/12/18 08:00 97.4 69 20 139/71 (93) 20 97.4 05/12/18 08:00 Mechanical Ventilator 05/12/18 08:00 30 05/12/18 08:00 70 05/12/18 07:58 70 17 30 05/12/18 05:06 70 20 30 05/12/18 04:00 97.7 70 20 137/73 (94) 100 97.7 05/12/18 04:00 Mechanical Ventilator 05/12/18 04:00 30 05/12/18 04:00 69 05/12/18 03:14 72 19 30 05/12/18 01:04 65 21 30 05/12/18 00:00 59 05/12/18 00:00 Mechanical Ventilator 05/12/18 00:00 97.9 59 20 118/64 (82) 100 97.9 05/11/18 23:04 69 16 30 05/11/18 21:42 69 119/68 05/11/18 21:16 69 21 30 05/11/18 20:00 Mechanical Ventilator 05/11/18 20:00 30 05/11/18 20:00 64 05/11/18 20:00 97.8 70 18 119/68 (85) 100 97.8 05/11/18 19:26 69 19 30 05/11/18 17:32 70 12 30 05/11/18 16:00 60 05/11/18 16:00 97.2 65 16 119/65 (83) 100 97.2 05/11/18 16:00 Mechanical Ventilator 05/11/18 16:00 30 05/11/18 12:35 60 17 30 Intake and Output 05/11/18 05/12/18 19:00 07:00 Intake Total 1270 ml 1410 ml Output Total 800 ml Balance 1270 ml 610 ml Free Water 110 ml 150 ml IV Total 440 ml 440 ml Tube Feeding 720 ml 720 ml Other 100 ml Output Urine Total 800 ml Objective WDWN NAD poorly responsive moderate breath sounds bilaterally with some rhonchi [id number] without MRG NABS nontender no HSM; gt no CCE cachectic as is poor response to pain skin noted comfortable at present reviewed and edited Current Medications Medications (Trade) Dose Ordered Sig/Iram Route PRN Reason Start Time Stop Time Status Last Admin Dose Admin Acetaminophen (Tylenol) 650 mg Q4H PRN ORAL Fever/Headache/Mild Pain 05/02/18 18:30 05/26/18 18:29 05/07/18 23:29 Artificial Tears (Akwa-Tears) 2 drop FIVE TIMES A DAY PRN BOTH EYES Dry Eyes 05/02/18 19:00 05/31/18 11:44 05/06/18 08:32 Ascorbic Acid (Vitamin C) 250 mg DAILY ORAL 05/11/18 09:00 06/10/18 08:59 05/12/18 08:15 Atorvastatin Calcium (Lipitor) 10 mg BEDTIME GT 05/02/18 21:00 05/28/18 20:59 05/11/18 21:42 Chlorhexidine Gluconate (Letha-Hex 2%) 1 applic DAILY@1999 TOPIC 05/02/18 20:00 05/31/18 19:59 05/11/18 21:42 Clonidine HCl (Catapres Tab) 0.1 mg Q4H PRN ORAL SBP >160 05/02/18 19:00 05/28/18 10:59 05/10/18 16:05 Docusate Sodium (Colace) 100 mg DAILY ORAL 05/03/18 09:00 05/27/18 08:59 05/12/18 08:14 Ethambutol HCl (Myambutol) 800 mg DAILY ORAL 05/03/18 09:00 05/27/18 08:59 05/12/18 08:14 Hydralazine HCl (Apresoline) 10 mg Q4H PRN IV SBP >160 05/02/18 18:18 05/28/18 18:17 Isoniazid (Inh) 300 mg DAILY ORAL 05/03/18 09:00 05/27/18 08:59 05/12/18 08:14 Lansoprazole (Prevacid) 30 mg Q12HR ORAL 05/05/18 21:00 06/04/18 20:59 05/12/18 08:14 Levetiracetam 750 mg/Dextrose 102.5 ml @ 440 mls/hr Q12HR IV 05/02/18 21:00 05/29/18 00:59 05/12/18 10:24 Metoprolol Tartrate (Lopressor) 50 mg Q12HR GT 05/02/18 21:00 05/28/18 20:59 05/12/18 08:15 Multivitamins Therapeutic (Therapeutic Multivitamin) 1 ea DAILY ORAL 05/03/18 09:00 05/27/18 08:59 05/12/18 08:26 Ondansetron HCl (Zofran) 4 mg Q6H PRN IVP Nausea & Vomiting 05/02/18 18:19 05/28/18 18:18 Pyrazinamide (Pza) 1,000 mg DAILY ORAL 05/03/18 09:00 05/28/18 08:59 05/12/18 08:14 Pyridoxine HCl (Vitamin B6) 50 mg DAILY ORAL 05/03/18 09:00 05/27/18 08:59 05/12/18 08:14 Rifampin (Rifadin) 600 mg DAILY ORAL 05/03/18 09:00 05/27/18 08:59 05/12/18 08:14 Sennosides (Senokot) 2 tab BIDPRN PRN GT Constipation 05/02/18 18:20 05/27/18 18:19 Tamsulosin HCl (Flomax) 0.4 mg BEDTIME ORAL 05/02/18 21:00 05/27/18 20:59 05/11/18 21:43 Nakul Cisse MD May 12, 2018 12:17
[2018-05-12 16:00] VITALS: BP_SYST 143; BP_SYST 96; BP_DIAS 69; BP_DIAS 73
[2018-05-12 20:00] VITALS: BP 147/86
--- NOTE | 2018-05-12 21:17 | General Progress Note ---
Assessment/Plan Assessment/Plan Assessment - suspected early cirrhosis based on imaging - hepatitis A/B/C negative - TRISTAN negative but F-Actin (+) - ? significance - Liver lesion, r/o HCC -->AFP normal - rising LFT - UGIB, resolved - Anemia - Resp failure - s/p PEG and Trach Recommendations - not good candidate for liver biopsy or for steroids - will consider MRI - would follow conservatively - continue TF Subjective Allergies: Coded Allergies: No Known Allergies (Unverified , 01/27/17) Subjective No events overnight Tolerating TF non communicative LFT elevated CT --> New 10 mm hyperintense lesion in segment 3 but AFP normal Objective Last 24 Hour Vital Signs Date Time Temp Pulse Resp B/P (MAP) Pulse Ox O2 Delivery O2 Flow Rate FiO2 05/12/18 20:00 97.2 81 21 147/86 (106) 98 97.2 05/12/18 20:00 80 05/12/18 19:16 79 27 30 05/12/18 17:30 72 19 30 05/12/18 16:24 76 21 30 05/12/18 16:00 30 05/12/18 16:00 64 05/12/18 16:00 Mechanical Ventilator 05/12/18 16:00 97.9 67 18 143/73 (96) 100 97.9 05/12/18 13:30 75 19 30 05/12/18 12:00 30 05/12/18 12:00 Mechanical Ventilator 05/12/18 12:00 64 05/12/18 12:00 97.7 67 20 142/85 (104) 99 97.7 05/12/18 11:53 70 17 30 05/12/18 09:30 70 17 30 05/12/18 08:15 69 139/71 05/12/18 08:00 97.4 69 20 139/71 (93) 100 97.4 05/12/18 08:00 Mechanical Ventilator 05/12/18 08:00 30 05/12/18 08:00 70 05/12/18 07:58 70 17 30 05/12/18 05:06 70 20 30 05/12/18 04:00 97.7 70 20 137/73 (94) 100 97.7 05/12/18 04:00 Mechanical Ventilator 05/12/18 04:00 30 05/12/18 04:00 69 05/12/18 03:14 72 19 30 05/12/18 01:04 65 21 30 05/12/18 00:00 59 05/12/18 00:00 Mechanical Ventilator 05/12/18 00:00 97.9 59 20 118/64 (82) 100 97.9 05/11/18 23:04 69 16 30 05/11/18 21:42 69 119/68 Intake and Output 05/11/18 05/12/18 19:00 07:00 Intake Total 1270 ml 1410 ml Output Total 800 ml Balance 1270 ml 610 ml Free Water 110 ml 150 ml IV Total 440 ml 440 ml Tube Feeding 720 ml 720 ml Other 100 ml Output Urine Total 800 ml Height (Feet): 5 Height (Inches): 7.00 Weight (Pounds): 141 Objective Thin AA man non communicative NCAT (+) trach CTA RRR soft ND NT, (+) GT no edema Oli Amaya MD May 12, 2018 21:17
[2018-05-12] MEDS: Dyna-Hex 2% Top Sol 2oz TOPIC SCH (21:29)
[2018-05-12] MEDS: Tamsulosin 0.4mg cap ORAL SCH (21:37)
--- NOTE | 2018-05-12 22:17 | Neurology Progress Note ---
Interim History Interim History Interim History Mr. Narvaez was sleeping when I went to see him. He could not be aroused even on deep painful stimulation. He did not blink to threat. He continues to be seizure-free. He continues to be non-functional. His cardio-respiratory function is stable. Review of Systems Neuro Review of Systems Unable to obtain. Objective Physical Exam Last Vital Signs Date Time Temp Pulse Resp B/P (MAP) Pulse Ox O2 Delivery O2 Flow Rate FiO2 05/12/18 21:30 80 147/86 05/12/18 21:29 25 30 05/12/18 20:00 97.2 98 97.2 05/12/18 16:00 Mechanical Ventilator 05/10/18 20:00 6.0 Neurologic Exam Objective PHYSICAL EXAMINATION: GENERAL: He is a well-developed, ill-looking black gentleman, lying in bed, in no acute distress. HEAD: Normocephalic and atraumatic. EENT: Examination benign. NECK: No neck rigidity was observed. NEUROLOGICAL EXAMINATION: MENTAL STATUS EXAMINATION: He could not be aroused even on deep painful stimuli. SPEECH: Could not be tested. LANGUAGE: Could not be tested. CRANIAL NERVE EXAMINATION: II: He did not blink to threat. III, IV & : External ocular movements were present. The pupils were 3 mm in diameter, equal, round, regular, and reactive sluggishly to light. V & VII: The corneal reflexes were present bilaterally. However, the right- sided reflex was significantly diminished compared to the left. VIII: He did not respond to sounds and had no nystagmus. IX & X: Gag reflex was suppressed. XI: The sternocleidomastoids and trapezii functioned minimally. XII: The tongue was in the midline. MOTOR SYSTEM: The tone was increased in all four extremities with spasticity more marked on the right than on the left. Examination of muscle mass revealed generalized muscle wasting, again more marked on the right than on the left. Examination of power was impossible to perform. He did move all four extremities minimally on deep pain with possibly right greater than left-sided weakness. SENSORY EXAMINATION: He responded appropriately to deep pain with less vigorous responses on the right side compared to the left. REFLEXES: Trace+ and bilaterally symmetrical at the biceps, triceps, brachioradialis. 0 at both knees and ankles. The plantar responses were extensor bilaterally. COORDINATION, STANCE & GAIT: Could not be tested. Impression/Recommendations Diagnostic Impression 1. Mr. Sagar Narvaez is a 72-year-old, [place] gentleman, of unknown handedness, who does have a past history of cerebrovascular disease with a prior stroke, pulmonary tuberculosis, chronic respiratory failure for which he has tracheostomy, and dysphagia for which he has a gastrostomy; who lives in senior living where he was noted to have an alteration in his mental state in the form of increased lethargy. He was thus brought into the [facility] emergency room and following admission, he apparently spiked a fever to 103 degrees Fahrenheit followed by multiple seizures. He was cooled down, given Ativan and started on Keppra and has been seizure-free since then. 2. He was sleeping when I went to see him. He could not be aroused even on deep painful stimulation. He did not blink to threat. He continues to be seizure- free. He continues to be non-functional. His cardio-respiratory function is stable. 3. On neurological examination, at this time, he cannot be aroused even on deep pain. He does not blink to threat. He is non verbal. His corneal reflex is diminished on the right side compared to the left. 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 In addition, he responds to deep pain, less on the right than on the left. His deep tendon reflexes are globally diminished and his plantar responses are extensor bilaterally. 4. Laboratory data on my initial evaluation revealed that his WBC count is creeping up from 4.4 to 9.5. He is significantly anemic with a hemoglobin of 8.8 G. His chemistry panel reveals that his bilirubin is elevated to 1.1. His alkaline phosphatase is elevated to 367, his AST is elevated to 52. His albumin is low at 1.9. His arterial blood gas reveals a pCO2 of 29 and a pO2 of 59 with a pH of 7.43. His urinalysis reveals 2+ leukocyte esterase with 2-4 RBCs and 2-4 WBCs per high-power field. 5. The EEG done on 04/27/18 revealed a moderately severe encephalopathy and left > right hemispheric dysfunction. No inter-ictal discharges were seen. 6. The CT of the brain done on 04/30/18 revealed multiple old bilateral cerebral infarcts involving the left > right brain. 7. 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 8. His mental state is still waxing and waning due to a continued encephalopathy. Recommendations 1. Continue present management. 2. Continue Keppra 750 mg q.12 hours. 3. Agree with plan to transfer to SNF. Mercedes Coelho M.D., M[facility] May 12, 2018 22:17
[2018-05-13] VITALS: BP 139/77
[2018-05-13 04:00] VITALS: BP 140/70
[2018-05-13 04:13] LABS: BASOPHILS % (AUTO) 0.6 % (0.0-2.0); EOSINOPHILS % (AUTO) 0.2 % (0.0-3.0); HEMATOCRIT 31.2 % (42.0-52.0); HEMOGLOBIN 10.2 G/DL (14.2-18.0); LYMPHOCYTES % (AUTO) 14.2 % (20.0-45.0); MEAN CORPUSCULAR VOLUME 78 FL (80-99); MONOCYTES % (AUTO) 10.2 % (1.0-10.0); NEUTROPHILS % (AUTO) 74.7 % (45.0-75.0); PLATELET COUNT 290 K/UL (150-450); RED BLOOD COUNT 4.01 M/UL (4.70-6.10); RED CELL DISTRIBUTION WIDTH 17.6 % (11.6-14.8); WHITE BLOOD COUNT 7.2 K/UL (4.8-10.8)
[2018-05-13 04:49] LABS: ALANINE AMINOTRANSFERASE 37 U/L (12-78); ALBUMIN 1.8 G/DL (3.4-5.0); ALBUMIN/GLOBULIN RATIO 0.4 (1.0-2.7); ALKALINE PHOSPHATASE 354 U/L (46-116); ANION GAP 7 mmol/L (5-15); ASPARTATE AMINO TRANSFERASE 57 U/L (15-37); BILIRUBIN,TOTAL 0.4 MG/DL (0.2-1.0); BLOOD UREA NITROGEN 46 mg/dL (7-18); CALCIUM 8.7 MG/DL (8.5-10.1); CARBON DIOXIDE 28 MMOL/L (21-32); CHLORIDE 108 MMOL/L (98-107); CREATININE 0.6 MG/DL (0.55-1.30); POTASSIUM 4.1 MMOL/L (3.5-5.1); SODIUM 142 MMOL/L (136-145)
--- NOTE | 2018-05-13 05:00 | Progress Note ---
DATE: 05/12/2018 CARDIOLOGY PROGRESS NOTE SUBJECTIVE: The patient remains on ventilator support. Secretions are decreasing. The Public Health Clearance had and is being renewed. Monitored rhythm is sinus with occasional ectopic. The patient received a dose of furosemide two days ago. OBJECTIVE: VITAL SIGNS: Blood pressure 147/86, pulse 80, and respiratory rate 20. Afebrile. LUNGS: Coarse breath sounds. Thin trach secretions. HEART: Regular rhythm and rate. Normal S1 and S2. ABDOMEN: Soft. G-tube intact. EXTREMITIES: No edema. IMPRESSION: Continued improvement. PLAN: 1. Continue antimicrobials. 2. Ventilator support with weaning efforts. 3. Nutrition by feeding tube. 4. Continue beta-cr. 5. Monitor volume status and cardiorenal parameters with periodic diuresis as indicated. Jones Arauz M.D. DR: WILD JOB#: [id number] CC:
[2018-05-13 08:00] VITALS: BP 146/78
[2018-05-13] MEDS: Docusate 100mg/10ml Liq ORAL SCH (08:37)
[2018-05-13] MEDS: Ascorbic Acid 500mg tab ORAL SCH (08:38)
[2018-05-13] MEDS: Isoniazid 300mg tab ORAL SCH (08:38)
[2018-05-13] MEDS: Metoprolol Tartrate 50mg tab GT SCH ×2 (08:39→20:37)
[2018-05-13] MEDS: Pyridoxine 50mg tab ORAL SCH (08:40)
[2018-05-13] MEDS: Multivitamin w/Minerals tab ORAL SCH (08:40)
[2018-05-13] MEDS: levETIRAcetam 750 MG in D5W 95 ML IV SCH ×2 (09:36→20:36)
[2018-05-13 12:00] VITALS: BP 132/77
--- NOTE | 2018-05-13 13:13 | Infectious Diseases Prog Note ---
Assessment/Plan Assessment/Plan A; Fever resolved Pneumonia with E. coli treated Fungal UTI Pulmonary TB AMS VDRF VRE colozation history of CVA Gastritis P; Continue TB treatment with RIPE Discontinue PICC line before discharge Subjective ROS Limited/Unobtainable: Yes Allergies: Coded Allergies: No Known Allergies (Unverified , 01/27/17) Objective Vital Signs Last 24 Hour Vital Signs Date Time Temp Pulse Resp B/P (MAP) Pulse Ox O2 Delivery O2 Flow Rate FiO2 05/13/18 12:55 69 23 30 05/13/18 10:46 72 23 30 05/13/18 09:38 100 05/13/18 09:37 77 16 30 05/13/18 09:32 75 37 30 05/13/18 09:29 79 21 30 05/13/18 08:39 79 146/78 05/13/18 08:00 Mechanical Ventilator 05/13/18 08:00 98.9 79 20 146/78 (100) 99 98.9 05/13/18 08:00 30 05/13/18 07:49 75 05/13/18 06:55 78 22 30 05/13/18 05:05 77 18 30 05/13/18 04:00 30 05/13/18 04:00 Mechanical Ventilator 05/13/18 04:00 99.0 77 16 140/70 (93) 99 99.0 05/13/18 03:50 77 05/13/18 03:06 74 25 30 05/13/18 01:04 75 26 30 05/13/18 00:00 Mechanical Ventilator 05/13/18 00:00 30 05/13/18 00:00 98.7 77 20 139/77 (97) 100 98.7 05/12/18 23:52 75 05/12/18 23:17 76 21 30 05/12/18 21:30 80 147/86 05/12/18 21:29 77 25 30 05/12/18 20:00 97.2 81 21 147/86 (106) 98 97.2 05/12/18 20:00 80 05/12/18 20:00 Mechanical Ventilator 05/12/18 20:00 30 05/12/18 19:16 79 27 30 05/12/18 17:30 72 19 30 05/12/18 16:24 76 21 30 10/8/18 16:00 30 05/12/18 16:00 64 05/12/18 16:00 Mechanical Ventilator 05/12/18 16:00 97.9 67 18 143/73 (96) 100 97.9 05/12/18 13:30 75 19 30 Height (Feet): 5 Height (Inches): 7.00 Weight (Pounds): 141 HEENT: status post trach Respiratory/Chest: lungs clear, other - on ventilator Cardiovascular: normal rate, other - left arm PICC line Abdomen: soft, non tender, other - GT feeding Extremities: no edema Neurologic/Psychiatric: unresponsiveness Musculoskeletal: atrophy Laboratory Tests Test 05/13/18 04:00 White Blood Count 7.2 K/UL (4.8-10.8) Red Blood Count 4.01 M/UL (4.70-6.10) L Hemoglobin 10.2 G/DL (14.2-18.0) L Hematocrit 31.2 % (42.0-52.0) L Mean Corpuscular Volume 78 FL (80-99) L Mean Corpuscular Hemoglobin 25.5 PG (27.0-31.0) L Mean Corpuscular Hemoglobin Concent 32.7 G/DL (32.0-36.0) Red Cell Distribution Width 17.6 % (11.6-14.8) H Platelet Count 290 K/UL (150-450) Mean Platelet Volume 5.4 FL (6.5-10.1) L Neutrophils (%) (Auto) 74.7 % (45.0-75.0) Lymphocytes (%) (Auto) 14.2 % (20.0-45.0) L Monocytes (%) (Auto) 10.2 % (1.0-10.0) H Eosinophils (%) (Auto) 0.2 % (0.0-3.0) Basophils (%) (Auto) 0.6 % (0.0-2.0) Sodium Level 142 MMOL/L (136-145) Potassium Level 4.1 MMOL/L (3.5-5.1) Chloride Level 108 MMOL/L (98-107) H Carbon Dioxide Level 28 MMOL/L (21-32) Anion Gap 7 mmol/L (5-15) Blood Urea Nitrogen 46 mg/dL (7-18) H Creatinine 0.6 MG/DL (0.55-1.30) Estimat Glomerular Filtration Rate mL/min (>60) Glucose Level 146 MG/DL (74-106) H Calcium Level 8.7 MG/DL (8.5-10.1) Total Bilirubin 0.4 MG/DL (0.2-1.0) Aspartate Amino Transf (AST/SGOT) 57 U/L (15-37) H Alanine Aminotransferase (ALT/SGPT) 37 U/L (12-78) Alkaline Phosphatase 354 U/L (46-116) H Total Protein 6.9 G/DL (6.4-8.2) Albumin 1.8 G/DL (3.4-5.0) L Globulin 5.1 g/dL Albumin/Globulin Ratio 0.4 (1.0-2.7) L Current Medications Medications (Trade) Dose Ordered Sig/Iram Route PRN Reason Start Time Stop Time Status Last Admin Dose Admin Acetaminophen (Tylenol) 650 mg Q4H PRN ORAL Fever/Headache/Mild Pain 05/02/18 18:30 05/26/18 18:29 05/07/18 23:29 Artificial Tears (Akwa-Tears) 2 drop FIVE TIMES A DAY PRN BOTH EYES Dry Eyes 05/02/18 19:00 05/31/18 11:44 05/06/18 08:32 Ascorbic Acid (Vitamin C) 250 mg DAILY ORAL 05/11/18 09:00 06/10/18 08:59 05/13/18 08:38 Atorvastatin Calcium (Lipitor) 10 mg BEDTIME GT 05/02/18 21:00 05/28/18 20:59 05/12/18 21:29 Chlorhexidine Gluconate (Letha-Hex 2%) 1 applic DAILY@1999 TOPIC 05/02/18 20:00 05/31/18 19:59 05/12/18 21:29 Clonidine HCl (Catapres Tab) 0.1 mg Q4H PRN ORAL SBP >160 05/02/18 19:00 05/28/18 10:59 05/10/18 16:05 Docusate Sodium (Colace) 100 mg DAILY ORAL 05/03/18 09:00 05/27/18 08:59 05/13/18 08:37 Ethambutol HCl (Myambutol) 800 mg DAILY ORAL 05/03/18 09:00 05/27/18 08:59 05/13/18 08:39 Hydralazine HCl (Apresoline) 10 mg Q4H PRN IV SBP >160 05/02/18 18:18 05/28/18 18:17 Isoniazid (Inh) 300 mg DAILY ORAL 05/03/18 09:00 05/27/18 08:59 05/13/18 08:38 Lansoprazole (Prevacid) 30 mg Q12HR ORAL 05/05/18 21:00 06/04/18 20:59 05/13/18 08:40 Levetiracetam 750 mg/Dextrose 102.5 ml @ 440 mls/hr Q12HR IV 05/02/18 21:00 05/29/18 00:59 05/13/18 09:36 Metoprolol Tartrate (Lopressor) 50 mg Q12HR GT 05/02/18 21:00 05/28/18 20:59 05/13/18 08:39 Multivitamins Therapeutic (Therapeutic Multivitamin) 1 ea DAILY ORAL 05/03/18 09:00 05/27/18 08:59 05/13/18 08:40 Ondansetron HCl (Zofran) 4 mg Q6H PRN IVP Nausea & Vomiting 05/02/18 18:19 05/28/18 18:18 Pyrazinamide (Pza) 1,000 mg DAILY ORAL 05/03/18 09:00 05/28/18 08:59 05/13/18 08:40 Pyridoxine HCl (Vitamin B6) 50 mg DAILY ORAL 05/03/18 09:00 05/27/18 08:59 05/13/18 08:40 Rifampin (Rifadin) 600 mg DAILY ORAL 05/03/18 09:00 05/27/18 08:59 05/13/18 08:39 Sennosides (Senokot) 2 tab BIDPRN PRN GT Constipation 05/02/18 18:20 05/27/18 18:19 Sodium Chloride 1,000 ml @ 50 mls/hr Q20H IV 05/12/18 13:30 06/11/18 13:29 05/13/18 09:45 Tamsulosin HCl (Flomax) 0.4 mg BEDTIME ORAL 05/02/18 21:00 05/27/18 20:59 05/12/18 21:37 Rahul Shen MD May 13, 2018 13:13
[2018-05-13 16:00] VITALS: BP 147/75
--- NOTE | 2018-05-13 17:28 | General Progress Note ---
Assessment/Plan Problem List: (1) Status epilepticus ICD Codes: G40.901 - Epilepsy, unspecified, not intractable, with status epilepticus SNOMED: 240062189 (2) Encephalopathy acute ICD Codes: G93.40 - Encephalopathy, unspecified SNOMED: 68143054, 726731802 (3) Probable sepsis ICD Codes: A41.9 - Sepsis, unspecified organism SNOMED: 824340030 (4) Dementia ICD Codes: F03.90 - Unspecified dementia without behavioral disturbance SNOMED: 53665178 (5) Encephalopathy ICD Codes: G93.40 - Encephalopathy, unspecified SNOMED: 43817819 (6) Sepsis ICD Codes: A41.9 - Sepsis, unspecified organism SNOMED: 48276247 (7) Pulmonary tuberculosis ICD Codes: A15.0 - Tuberculosis of lung SNOMED: 534098779 (8) Dehydration ICD Codes: E86.0 - Dehydration SNOMED: 57830510 (9) Altered level of consciousness ICD Codes: R40.4 - Transient alteration of awareness SNOMED: 9741982 Status: stable, progressing Assessment/Plan vent prn wean as able abx per ID tb rx gt feeds wound care sz rx iv hydration stable for dc from med standpoint await clearance from medicare and dept of health Subjective ROS Limited/Unobtainable: No Constitutional: Reports: malaise, weakness HEENT: Reports: no symptoms Cardiovascular: Reports: no symptoms Respiratory: Reports: cough Gastrointestinal/Abdominal: Reports: difficulty swallowing Genitourinary: Reports: no symptoms Neurologic/Psychiatric: Reports: pre-existing deficit, seizure Endocrine: Reports: no symptoms Hematologic/Lymphatic: Reports: no symptoms Allergies: Coded Allergies: No Known Allergies (Unverified , 01/27/17) All Systems: reviewed and negative except above Subjective no events. family felt pt was dehydrated. requested IVF be ordered. started on low rate NS. today family believes pt is more alert and "stronger." Objective Last 24 Hour Vital Signs Date Time Temp Pulse Resp B/P (MAP) Pulse Ox O2 Delivery O2 Flow Rate FiO2 05/13/18 17:08 67 19 30 05/13/18 16:00 30 05/13/18 16:00 98.0 66 21 147/75 (99) 100 98.0 05/13/18 16:00 Mechanical Ventilator 05/13/18 16:00 65 05/13/18 14:56 61 19 30 05/13/18 12:55 69 23 30 05/13/18 12:00 Mechanical Ventilator 05/13/18 12:00 72 05/13/18 12:00 30 05/13/18 12:00 99.6 78 24 132/77 (95) 100 99.6 05/13/18 10:46 72 23 30 05/13/18 09:38 100 05/13/18 09:37 77 16 30 05/13/18 09:32 75 37 30 05/13/18 09:29 79 21 30 05/13/18 08:39 79 146/78 05/13/18 08:00 Mechanical Ventilator 05/13/18 08:00 98.9 79 20 146/78 (100) 99 98.9 05/13/18 08:00 30 05/13/18 07:49 75 05/13/18 06:55 78 22 30 05/13/18 05:05 77 18 30 05/13/18 04:00 30 05/13/18 04:00 Mechanical Ventilator 05/13/18 04:00 99.0 77 16 140/70 (93) 99 99.0 05/13/18 03:50 77 05/13/18 03:06 74 25 30 05/13/18 01:04 75 26 30 05/13/18 00:00 Mechanical Ventilator 05/13/18 00:00 30 05/13/18 00:00 98.7 77 20 139/77 (97) 100 98.7 05/12/18 23:52 75 05/12/18 23:17 76 21 30 05/12/18 21:30 80 147/86 05/12/18 21:29 77 25 30 05/12/18 20:00 97.2 81 21 147/86 (106) 98 97.2 05/12/18 20:00 80 05/12/18 20:00 Mechanical Ventilator 05/12/18 20:00 30 05/12/18 19:16 79 27 30 05/12/18 17:30 72 19 30 Intake and Output 05/12/18 05/13/18 19:00 07:00 Intake Total 1440 ml 1850 ml Output Total 600 ml 550 ml Balance 840 ml 1300 ml Free Water 30 ml 150 ml IV Total 690 ml 1040 ml Tube Feeding 720 ml 660 ml Output Urine Total 600 ml 550 ml Laboratory Tests 05/13/18 04:00: White Blood Count 7.2, Red Blood Count 4.01L, Hemoglobin 10.2L, Hematocrit 31.2L , Mean Corpuscular Volume 78L, Mean Corpuscular Hemoglobin 25.5L, Mean Corpuscular Hemoglobin Concent 32.7, Red Cell Distribution Width 17.6H, Platelet Count 290, Mean Platelet Volume 5.4L, Neutrophils (%) (Auto) 74.7, Lymphocytes (%) (Auto) 14.2L, Monocytes (%) (Auto) 10.2H, Eosinophils (%) (Auto ) 0.2, Basophils (%) (Auto) 0.6, Sodium Level 142, Potassium Level 4.1, Chloride Level 108H, Carbon Dioxide Level 28, Anion Gap 7, Blood Urea Nitrogen 46H, Creatinine 0.6, Estimat Glomerular Filtration Rate , Glucose Level 146H, Calcium Level 8.7, Total Bilirubin 0.4, Aspartate Amino Transf (AST/SGOT) 57H, Alanine Aminotransferase (ALT/SGPT) 37, Alkaline Phosphatase 354H, Total Protein 6.9, Albumin 1.8L, Globulin 5.1, Albumin/Globulin Ratio 0.4L Height (Feet): 5 Height (Inches): 7.00 Weight (Pounds): 141 Objective General Appearance: WD/WN, cachetic, thin Neck: supple Cardiovascular: tachycardia Respiratory/Chest: rhonchi - bilaterally Abdomen: normal bowel sounds, non tender, soft, no organomegaly Edema: no edema noted Arm (L), no edema noted Arm (R), no edema noted Leg (L), no edema noted Leg (R), no edema noted Pedal (L), no edema noted Pedal (R), no edema noted Generalized Jarrod Vásquez MD May 13, 2018 17:28
[2018-05-13 20:00] VITALS: BP 151/81
--- NOTE | 2018-05-13 20:26 | General Progress Note ---
Assessment/Plan Assessment/Plan Assessment - suspected early cirrhosis based on imaging - hepatitis A/B/C negative - TRISTAN negative but F-Actin (+) - ? 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 Recommendations - not good candidate for liver biopsy or for steroids - watch LFT on INH - will consider MRI - would follow conservatively - continue TF Subjective Allergies: Coded Allergies: No Known Allergies (Unverified , 01/27/17) Subjective No events overnight Tolerating TF non communicative LFT elevated CT --> New 10 mm hyperintense lesion in segment 3 but AFP normal Objective Last 24 Hour Vital Signs Date Time Temp Pulse Resp B/P (MAP) Pulse Ox O2 Delivery O2 Flow Rate FiO2 05/13/18 19:30 79 23 30 05/13/18 17:08 67 19 30 05/13/18 16:00 30 05/13/18 16:00 98.0 66 21 147/75 (99) 100 98.0 05/13/18 16:00 Mechanical Ventilator 05/13/18 16:00 65 05/13/18 14:56 61 19 30 05/13/18 12:55 69 23 30 05/13/18 12:00 Mechanical Ventilator 05/13/18 12:00 72 05/13/18 12:00 30 05/13/18 12:00 99.6 78 24 132/77 (95) 100 99.6 05/13/18 10:46 72 23 30 05/13/18 09:38 100 05/13/18 09:37 77 16 30 05/13/18 09:32 75 37 30 05/13/18 09:29 79 21 30 05/13/18 08:39 79 146/78 05/13/18 08:00 Mechanical Ventilator 05/13/18 08:00 98.9 79 20 146/78 (100) 99 98.9 05/13/18 08:00 30 05/13/18 07:49 75 05/13/18 06:55 78 22 30 05/13/18 05:05 77 18 30 05/13/18 04:00 30 05/13/18 04:00 Mechanical Ventilator 05/13/18 04:00 99.0 77 16 140/70 (93) 99 99.0 05/13/18 03:50 77 05/13/18 03:06 74 25 30 05/13/18 01:04 75 26 30 05/13/18 00:00 Mechanical Ventilator 05/13/18 00:00 30 05/13/18 00:00 98.7 77 20 139/77 (97) 100 98.7 05/12/18 23:52 75 05/12/18 23:17 76 21 30 05/12/18 21:30 80 147/86 05/12/18 21:29 77 25 30 Intake and Output 05/12/18 05/13/18 19:00 07:00 Intake Total 1440 ml 1850 ml Output Total 600 ml 550 ml Balance 840 ml 1300 ml Free Water 30 ml 150 ml IV Total 690 ml 1040 ml Tube Feeding 720 ml 660 ml Output Urine Total 600 ml 550 ml Laboratory Tests 05/13/18 04:00: White Blood Count 7.2, Red Blood Count 4.01L, Hemoglobin 10.2L, Hematocrit 31.2L , Mean Corpuscular Volume 78L, Mean Corpuscular Hemoglobin 25.5L, Mean Corpuscular Hemoglobin Concent 32.7, Red Cell Distribution Width 17.6H, Platelet Count 290, Mean Platelet Volume 5.4L, Neutrophils (%) (Auto) 74.7, Lymphocytes (%) (Auto) 14.2L, Monocytes (%) (Auto) 10.2H, Eosinophils (%) (Auto ) 0.2, Basophils (%) (Auto) 0.6, Sodium Level 142, Potassium Level 4.1, Chloride Level 108H, Carbon Dioxide Level 28, Anion Gap 7, Blood Urea Nitrogen 46H, Creatinine 0.6, Estimat Glomerular Filtration Rate , Glucose Level 146H, Calcium Level 8.7, Total Bilirubin 0.4, Aspartate Amino Transf (AST/SGOT) 57H, Alanine Aminotransferase (ALT/SGPT) 37, Alkaline Phosphatase 354H, Total Protein 6.9, Albumin 1.8L, Globulin 5.1, Albumin/Globulin Ratio 0.4L Height (Feet): 5 Height (Inches): 7.00 Weight (Pounds): 141 Objective Thin AA man non communicative NCAT (+) trach CTA RRR soft ND NT, (+) GT no edema Oli Amaya MD May 13, 2018 20:26
[2018-05-13] MEDS: Dyna-Hex 2% Top Sol 2oz TOPIC SCH (20:36)
[2018-05-13] MEDS: Tamsulosin 0.4mg cap ORAL SCH (20:37)
--- NOTE | 2018-05-13 21:03 | Neurology Progress Note ---
Interim History Interim History Interim History Mr. Narvaez could not be aroused even on deep painful stimulation. He only withdrew all extremities on deep pain and winced. He did not blink to threat. He continues to be seizure-free. He continues to be non-functional. His cardio-respiratory function is stable. Review of Systems Neuro Review of Systems Unable to obtain. Objective Physical Exam Last Vital Signs Date Time Temp Pulse Resp B/P (MAP) Pulse Ox O2 Delivery O2 Flow Rate FiO2 05/13/18 20:37 79 151/81 05/13/18 19:30 23 30 05/13/18 16:00 98.0 100 98.0 05/13/18 16:00 Mechanical Ventilator 05/10/18 20:00 6.0 Laboratory Tests Test 05/13/18 04:00 White Blood Count 7.2 K/UL (4.8-10.8) Red Blood Count 4.01 M/UL (4.70-6.10) L Hemoglobin 10.2 G/DL (14.2-18.0) L Hematocrit 31.2 % (42.0-52.0) L Mean Corpuscular Volume 78 FL (80-99) L Mean Corpuscular Hemoglobin 25.5 PG (27.0-31.0) L Mean Corpuscular Hemoglobin Concent 32.7 G/DL (32.0-36.0) Red Cell Distribution Width 17.6 % (11.6-14.8) H Platelet Count 290 K/UL (150-450) Mean Platelet Volume 5.4 FL (6.5-10.1) L Neutrophils (%) (Auto) 74.7 % (45.0-75.0) Lymphocytes (%) (Auto) 14.2 % (20.0-45.0) L Monocytes (%) (Auto) 10.2 % (1.0-10.0) H Eosinophils (%) (Auto) 0.2 % (0.0-3.0) Basophils (%) (Auto) 0.6 % (0.0-2.0) Sodium Level 142 MMOL/L (136-145) Potassium Level 4.1 MMOL/L (3.5-5.1) Chloride Level 108 MMOL/L (98-107) H Carbon Dioxide Level 28 MMOL/L (21-32) Anion Gap 7 mmol/L (5-15) Blood Urea Nitrogen 46 mg/dL (7-18) H Creatinine 0.6 MG/DL (0.55-1.30) Estimat Glomerular Filtration Rate mL/min (>60) Glucose Level 146 MG/DL (74-106) H Calcium Level 8.7 MG/DL (8.5-10.1) Total Bilirubin 0.4 MG/DL (0.2-1.0) Aspartate Amino Transf (AST/SGOT) 57 U/L (15-37) H Alanine Aminotransferase (ALT/SGPT) 37 U/L (12-78) Alkaline Phosphatase 354 U/L (46-116) H Total Protein 6.9 G/DL (6.4-8.2) Albumin 1.8 G/DL (3.4-5.0) L Globulin 5.1 g/dL Albumin/Globulin Ratio 0.4 (1.0-2.7) L Neurologic Exam Objective PHYSICAL EXAMINATION: GENERAL: He is a well-developed, ill-looking black gentleman, lying in bed, in no acute distress. HEAD: Normocephalic and atraumatic. EENT: Examination benign. NECK: No neck rigidity was observed. NEUROLOGICAL EXAMINATION: MENTAL STATUS EXAMINATION: He could not be aroused even on deep painful stimuli. SPEECH: Could not be tested. LANGUAGE: Could not be tested. CRANIAL NERVE EXAMINATION: II: He did not blink to threat. III, IV & : External ocular movements were present. The pupils were 3 mm in diameter, equal, round, regular, and reactive sluggishly to light. V & VII: The corneal reflexes were present bilaterally. However, the right- sided reflex was significantly diminished compared to the left. VIII: He did not respond to sounds and had no nystagmus. IX & X: Gag reflex was suppressed. XI: The sternocleidomastoids and trapezii functioned minimally. XII: The tongue was in the midline. MOTOR SYSTEM: The tone was increased in all four extremities with spasticity more marked on the right than on the left. Examination of muscle mass revealed generalized muscle wasting, again more marked on the right than on the left. Examination of power was impossible to perform. He did move all four extremities minimally on deep pain with possibly right greater than left-sided weakness. SENSORY EXAMINATION: He responded appropriately to deep pain with less vigorous responses on the right side compared to the left. REFLEXES: Trace+ and bilaterally symmetrical at the biceps, triceps, brachioradialis. 0 at both knees and ankles. The plantar responses were extensor bilaterally. COORDINATION, STANCE & GAIT: Could not be tested. Impression/Recommendations Diagnostic Impression 1. Mr. Sagar Narvaez is a 72-year-old, [place] gentleman, of unknown handedness, who does have a past history of cerebrovascular disease with a prior stroke, pulmonary tuberculosis, chronic respiratory failure for which he has tracheostomy, and dysphagia for which he has a gastrostomy; who lives in halfway where he was noted to have an alteration in his mental state in the form of increased lethargy. He was thus brought into the [facility] emergency room and following admission, he apparently spiked a fever to 103 degrees Fahrenheit followed by multiple seizures. He was cooled down, given Ativan and started on Keppra and has been seizure-free since then. 2. He could not be aroused even on deep painful stimulation. He only withdrew all extremities on deep pain and winced. He did not blink to threat. He continues to be seizure-free. He continues to be non-functional. His cardio- respiratory function is stable. 3. On neurological examination, at this time, he cannot be aroused even on deep pain. He does not blink to threat. He is non verbal. His corneal reflex is diminished on the right side compared to the left. 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 In addition, he responds to deep pain, less on the right than on the left. His deep tendon reflexes are globally diminished and his plantar responses are extensor bilaterally. 4. Laboratory data on my initial evaluation revealed that his WBC count is creeping up from 4.4 to 9.5. He is significantly anemic with a hemoglobin of 8.8 G. His chemistry panel reveals that his bilirubin is elevated to 1.1. His alkaline phosphatase is elevated to 367, his AST is elevated to 52. His albumin is low at 1.9. His arterial blood gas reveals a pCO2 of 29 and a pO2 of 59 with a pH of 7.43. His urinalysis reveals 2+ leukocyte esterase with 2-4 RBCs and 2-4 WBCs per high-power field. 5. The EEG done on 04/27/18 revealed a moderately severe encephalopathy and left > right hemispheric dysfunction. No inter-ictal discharges were seen. 6. The CT of the brain done on 04/30/18 revealed multiple old bilateral cerebral infarcts involving the left > right brain. 7. 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 8. His mental state is still waxing and waning. He however has been more encephalopathic in the last few days. Recommendations 1. Continue present management. 2. Continue Keppra 750 mg q.12 hours. 3. Agree with plan to transfer to SNF. Mercedes Coelho M.D., M.S.P.MERCEDES BERMUDEZ May 13, 2018 21:03
--- NOTE | 2018-05-13 21:31 | Pulmonology Progress Note ---
Assessment/Plan Assessment/Plan IMPRESSION respiratory failure, vent dependent possible sepsis chronic encephalopathy trach debility hypoxemia htn metabolic acidosis ho hypertension ho seizures abnormal imaging PLAN reviewed care currently on AC- unable to wean vent dependent and fully supported elevate head and monitor monitor ABG PRN suction PRN dc planning to snf- needs chronic vent management follow clinically for change and monitor oxygen as needed monitor hemodynamics and adjust prognosis guarded at present fully dependent at present medications/laboratory data/nursing notes reviewed in detail note reviewed and edited care discussed with RN and RT Subjective ROS Limited/Unobtainable: Yes Allergies: Coded Allergies: No Known Allergies (Unverified , 01/27/17) Subjective care reviewed on vent full support Objective Last 24 Hour Vital Signs Date Time Temp Pulse Resp B/P (MAP) Pulse Ox O2 Delivery O2 Flow Rate FiO2 05/13/18 21:09 68 21 30 05/13/18 20:37 79 151/81 05/13/18 19:30 79 23 30 05/13/18 17:08 67 19 30 05/13/18 16:00 30 05/13/18 16:00 98.0 66 21 147/75 (99) 100 98.0 05/13/18 16:00 Mechanical Ventilator 05/13/18 16:00 65 05/13/18 14:56 61 19 30 05/13/18 12:55 69 23 30 05/13/18 12:00 Mechanical Ventilator 05/13/18 12:00 72 05/13/18 12:00 30 05/13/18 12:00 99.6 78 24 132/77 (95) 100 99.6 05/13/18 10:46 72 23 30 05/13/18 09:38 100 05/13/18 09:37 77 16 30 05/13/18 09:32 75 37 30 05/13/18 09:29 79 21 30 05/13/18 08:39 79 146/78 05/13/18 08:00 Mechanical Ventilator 05/13/18 08:00 98.9 79 20 146/78 (100) 99 98.9 05/13/18 08:00 30 05/13/18 07:49 75 05/13/18 06:55 78 22 30 05/13/18 05:05 77 18 30 05/13/18 04:00 30 05/13/18 04:00 Mechanical Ventilator 05/13/18 04:00 99.0 77 16 140/70 (93) 99 99.0 05/13/18 03:50 77 05/13/18 03:06 74 25 30 05/13/18 01:04 75 26 30 05/13/18 00:00 Mechanical Ventilator 05/13/18 00:00 30 05/13/18 00:00 98.7 77 20 139/77 (97) 100 98.7 05/12/18 23:52 75 05/12/18 23:17 76 21 30 05/12/18 21:30 80 147/86 05/12/18 21:29 77 25 30 Intake and Output 05/12/18 05/13/18 19:00 07:00 Intake Total 1440 ml 1850 ml Output Total 600 ml 550 ml Balance 840 ml 1300 ml Free Water 30 ml 150 ml IV Total 690 ml 1040 ml Tube Feeding 720 ml 660 ml Output Urine Total 600 ml 550 ml Objective WDWN NAD poorly responsive moderate breath sounds bilaterally with minimal rhonchi [id number] without MRG NABS nontender no HSM; gt no CCE cachectic as is poor response to pain skin noted comfortable reviewed and edited Laboratory Tests 05/13/18 04:00: White Blood Count 7.2, Red Blood Count 4.01L, Hemoglobin 10.2L, Hematocrit 31.2L , Mean Corpuscular Volume 78L, Mean Corpuscular Hemoglobin 25.5L, Mean Corpuscular Hemoglobin Concent 32.7, Red Cell Distribution Width 17.6H, Platelet Count 290, Mean Platelet Volume 5.4L, Neutrophils (%) (Auto) 74.7, Lymphocytes (%) (Auto) 14.2L, Monocytes (%) (Auto) 10.2H, Eosinophils (%) (Auto ) 0.2, Basophils (%) (Auto) 0.6, Sodium Level 142, Potassium Level 4.1, Chloride Level 108H, Carbon Dioxide Level 28, Anion Gap 7, Blood Urea Nitrogen 46H, Creatinine 0.6, Estimat Glomerular Filtration Rate , Glucose Level 146H, Calcium Level 8.7, Total Bilirubin 0.4, Aspartate Amino Transf (AST/SGOT) 57H, Alanine Aminotransferase (ALT/SGPT) 37, Alkaline Phosphatase 354H, Total Protein 6.9, Albumin 1.8L, Globulin 5.1, Albumin/Globulin Ratio 0.4L Current Medications Medications (Trade) Dose Ordered Sig/Iram Route PRN Reason Start Time Stop Time Status Last Admin Dose Admin Acetaminophen (Tylenol) 650 mg Q4H PRN ORAL Fever/Headache/Mild Pain 05/02/18 18:30 05/26/18 18:29 05/07/18 23:29 Artificial Tears (Akwa-Tears) 2 drop FIVE TIMES A DAY PRN BOTH EYES Dry Eyes 05/02/18 19:00 05/31/18 11:44 05/06/18 08:32 Ascorbic Acid (Vitamin C) 250 mg DAILY ORAL 05/11/18 09:00 06/10/18 08:59 05/13/18 08:38 Atorvastatin Calcium (Lipitor) 10 mg BEDTIME GT 05/02/18 21:00 05/28/18 20:59 05/13/18 20:37 Chlorhexidine Gluconate (Letha-Hex 2%) 1 applic DAILY@2000 TOPIC 05/02/18 20:00 05/31/18 19:59 05/13/18 20:36 Clonidine HCl (Catapres Tab) 0.1 mg Q4H PRN ORAL SBP >160 05/02/18 19:00 05/28/18 10:59 05/10/18 16:05 Docusate Sodium (Colace) 100 mg DAILY ORAL 05/03/18 09:00 05/27/18 08:59 05/13/18 08:37 Ethambutol HCl (Myambutol) 800 mg DAILY ORAL 05/03/18 09:00 05/27/18 08:59 05/13/18 08:39 Hydralazine HCl (Apresoline) 10 mg Q4H PRN IV SBP >160 05/02/18 18:18 05/28/18 18:17 Isoniazid (Inh) 300 mg DAILY ORAL 05/03/18 09:00 05/27/18 08:59 05/13/18 08:38 Lansoprazole (Prevacid) 30 mg Q12HR ORAL 05/05/18 21:00 06/04/18 20:59 05/13/18 20:36 Levetiracetam 750 mg/Dextrose 102.5 ml @ 440 mls/hr Q12HR IV 05/02/18 21:00 05/29/18 00:59 05/13/18 20:36 Metoprolol Tartrate (Lopressor) 50 mg Q12HR GT 05/02/18 21:00 05/28/18 20:59 05/13/18 20:37 Multivitamins Therapeutic (Therapeutic Multivitamin) 1 ea DAILY ORAL 05/03/18 09:00 05/27/18 08:59 05/13/18 08:40 Ondansetron HCl (Zofran) 4 mg Q6H PRN IVP Nausea & Vomiting 05/02/18 18:19 05/28/18 18:18 Pyrazinamide (Pza) 1,000 mg DAILY ORAL 05/03/18 09:00 05/28/18 08:59 05/13/18 08:40 Pyridoxine HCl (Vitamin B6) 50 mg DAILY ORAL 05/03/18 09:00 05/27/18 08:59 05/13/18 08:40 Rifampin (Rifadin) 600 mg DAILY ORAL 05/03/18 09:00 05/27/18 08:59 05/13/18 08:39 Sennosides (Senokot) 2 tab BIDPRN PRN GT Constipation 05/02/18 18:20 05/27/18 18:19 Sodium Chloride 1,000 ml @ 50 mls/hr Q20H IV 05/12/18 13:30 06/11/18 13:29 05/13/18 09:45 Tamsulosin HCl (Flomax) 0.4 mg BEDTIME ORAL 05/02/18 21:00 05/27/18 20:59 05/13/18 20:37 Nakul Cisse MD May 13, 2018 21:31
[2018-05-14] VITALS: BP 155/82
--- NOTE | 2018-05-14 00:30 | Progress Note ---
DATE: 05/13/2018 CARDIOLOGY PROGRESS NOTE SUBJECTIVE: The patient has been hydrated per family request with IV fluids. ____ the patient's clearance from Department of Health with respect to tuberculosis is pending. OBJECTIVE: VITAL SIGNS: Afebrile. Vitals stable. LUNGS: Clear. Thin trach secretions. CARDIAC: Regular rhythm and rate. Normal S1 and S2. ABDOMEN: Soft. G-tube intact. EXTREMITIES: No edema. LABORATORY DATA: White count 7.3 and hemoglobin 10.2. Sodium 142, potassium 4.1, BUN 46, creatinine 0.6, and albumin 1.8. IMPRESSION: 1. Cautious hydration, no diuresis. 2. Protein supplement. 3. Antimicrobial. 4. Ventilator support. 5. Respiratory hygiene. 6. DVT prophylaxis. Jones Arauz M.D. DR: MAURIZIO JOB#: [id number] CC:
[2018-05-14 04:00] VITALS: BP 146/71
--- NOTE | 2018-05-14 07:37 | General Progress Note ---
Assessment/Plan Problem List: (1) Status epilepticus ICD Codes: G40.901 - Epilepsy, unspecified, not intractable, with status epilepticus SNOMED: 101597638 (2) Encephalopathy acute ICD Codes: G93.40 - Encephalopathy, unspecified SNOMED: 19527087, 923970098 (3) Probable sepsis ICD Codes: A41.9 - Sepsis, unspecified organism SNOMED: 488084423 (4) Dementia ICD Codes: F03.90 - Unspecified dementia without behavioral disturbance SNOMED: 95887695 (5) Encephalopathy ICD Codes: G93.40 - Encephalopathy, unspecified SNOMED: 93751355 (6) Sepsis ICD Codes: A41.9 - Sepsis, unspecified organism SNOMED: 52885753 (7) Pulmonary tuberculosis ICD Codes: A15.0 - Tuberculosis of lung SNOMED: 413337299 (8) Dehydration ICD Codes: E86.0 - Dehydration SNOMED: 29601635 (9) Altered level of consciousness ICD Codes: R40.4 - Transient alteration of awareness SNOMED: 2589978 Status: stable, progressing Assessment/Plan tylenol for fever check cxr and cultures vent prn wean as able abx per ID tb rx gt feeds wound care sz rx iv hydration not stable for dc with fever Subjective ROS Limited/Unobtainable: Yes Constitutional: Reports: malaise, weakness HEENT: Reports: no symptoms Cardiovascular: Reports: no symptoms Respiratory: Reports: shortness of breath Gastrointestinal/Abdominal: Reports: difficulty swallowing Genitourinary: Reports: no symptoms Neurologic/Psychiatric: Reports: pre-existing deficit, seizure Endocrine: Reports: no symptoms Hematologic/Lymphatic: Reports: anemia Allergies: Coded Allergies: No Known Allergies (Unverified , 01/27/17) All Systems: reviewed and negative except above Subjective low grade fever 100.5 no events. remains on the vent. poorly responsive currently. on ivf. Objective Last 24 Hour Vital Signs Date Time Temp Pulse Resp B/P (MAP) Pulse Ox O2 Delivery O2 Flow Rate FiO2 05/14/18 06:52 80 26 30 05/14/18 05:30 85 24 30 05/14/18 05:26 100.5 05/14/18 04:00 100.5 95 21 146/71 (96) 98 100.5 05/14/18 04:00 92 05/14/18 04:00 Mechanical Ventilator 05/14/18 04:00 30 05/14/18 02:51 90 25 30 05/14/18 01:29 90 20 30 05/14/18 00:26 30 05/14/18 00:00 99.1 73 21 155/82 (106) 98 99.1 05/14/18 00:00 Mechanical Ventilator 05/14/18 00:00 77 05/13/18 23:31 80 26 30 05/13/18 21:09 68 21 30 05/13/18 20:37 79 151/81 05/13/18 20:00 82 05/13/18 20:00 99.0 98 23 151/81 (104) 99 99.0 05/13/18 20:00 30 05/13/18 20:00 Mechanical Ventilator 05/13/18 19:30 79 23 30 05/13/18 17:08 67 19 30 05/13/18 16:00 30 05/13/18 16:00 98.0 66 21 147/75 (99) 100 98.0 05/13/18 16:00 Mechanical Ventilator 05/13/18 16:00 65 05/13/18 14:56 61 19 30 05/13/18 12:55 69 23 30 05/13/18 12:00 Mechanical Ventilator 05/13/18 12:00 72 05/13/18 12:00 30 05/13/18 12:00 99.6 78 24 132/77 (95) 100 99.6 05/13/18 10:46 72 23 30 05/13/18 09:38 100 05/13/18 09:37 77 16 30 05/13/18 09:32 75 37 30 05/13/18 09:29 79 21 30 05/13/18 08:39 79 146/78 05/13/18 08:00 Mechanical Ventilator 05/13/18 08:00 98.9 79 20 146/78 (100) 99 98.9 05/13/18 08:00 30 05/13/18 07:49 75 Intake and Output 05/13/18 05/14/18 19:00 07:00 Intake Total 1440.0 ml 590 ml Output Total 600 ml Balance 840.0 ml 590 ml Free Water 60 ml 60 ml IV Total 600.0 ml 50 ml Tube Feeding 780 ml 480 ml Output Urine Total 600 ml Height (Feet): 5 Height (Inches): 7.00 Weight (Pounds): 141 Objective General Appearance: WD/WN, cachetic, thin Neck: supple Cardiovascular: tachycardia Respiratory/Chest: rhonchi - bilaterally Abdomen: normal bowel sounds, non tender, soft, no organomegaly Edema: no edema noted Arm (L), no edema noted Arm (R), no edema noted Leg (L), no edema noted Leg (R), no edema noted Pedal (L), no edema noted Pedal (R), no edema noted Generalized Jarrod Vásquez MD May 14, 2018 07:37
[2018-05-14 08:00] VITALS: BP 153/86
[2018-05-14] MEDS: Isoniazid 300mg tab ORAL SCH (09:17)
[2018-05-14] MEDS: Multivitamin w/Minerals tab ORAL SCH (09:17)
[2018-05-14] MEDS: Pyridoxine 50mg tab ORAL SCH (09:17)
[2018-05-14] MEDS: Sennosides 8.6mg GT PRN ×2 (09:17→16:27)
[2018-05-14] MEDS: Metoprolol Tartrate 50mg tab GT SCH ×2 (09:18→21:02)
[2018-05-14] MEDS: Docusate 100mg/10ml Liq ORAL SCH (09:18)
[2018-05-14] MEDS: Ascorbic Acid 500mg tab ORAL SCH (09:19)
[2018-05-14 09:25] LABS: BASOPHILS % (AUTO) 0.6 % (0.0-2.0); EOSINOPHILS % (AUTO) 0.2 % (0.0-3.0); HEMATOCRIT 29.8 % (42.0-52.0); HEMOGLOBIN 9.3 G/DL (14.2-18.0); LYMPHOCYTES % (AUTO) 10.3 % (20.0-45.0); MEAN CORPUSCULAR VOLUME 81 FL (80-99); MONOCYTES % (AUTO) 11.2 % (1.0-10.0); NEUTROPHILS % (AUTO) 77.7 % (45.0-75.0); PLATELET COUNT 241 K/UL (150-450); RED BLOOD COUNT 3.69 M/UL (4.70-6.10); RED CELL DISTRIBUTION WIDTH 17.7 % (11.6-14.8); WHITE BLOOD COUNT 9.6 K/UL (4.8-10.8)
[2018-05-14] MEDS: levETIRAcetam 750 MG in D5W 95 ML IV SCH ×2 (09:58→21:23)
[2018-05-14 10:32] LABS: APPEARANCE,URINE CLOUDY; BILIRUBIN, URINE NEGATIVE (NEGATIVE); GLUCOSE, URINE (UA) NEGATIVE (NEGATIVE); KETONES,URINE NEGATIVE (NEGATIVE); LEUKOCYTE ESTERASE ,URINE 2+ (NEGATIVE); NITRITE,URINE NEGATIVE (NEGATIVE); PH,URINE 6.5 (4.5-8.0); PROTEIN,URINE 2+ (NEGATIVE); UROBILINOGEN,URINE 1 MG/DL (0.0-1.0)
[2018-05-14 10:35] LABS: COLOR,URINE YELLOW
--- NOTE | 2018-05-14 11:09 | Infectious Diseases Prog Note ---
Assessment/Plan Assessment/Plan antibiotics : ceftriaxone, fluconazole, isoniazid, rifampin, pyrazinamide, ethambutol, pyridoxine A 1. pulmonary TB 2. e.coli pneumonia s/p rx 3. fungal UTI s/p rx 4. respiratory failure 5. encephalopathy 6. increased LFT improving 7. fever P 1. continue isoniazid, rifampin, pyrazinamide, ethambutol, pyridoxine 2. will follow up cultures 3. sputum culture 4. blood culture 5. UA and urine cultures Subjective ROS Limited/Unobtainable: Yes Allergies: Coded Allergies: No Known Allergies (Unverified , 01/27/17) Objective Vital Signs Last 24 Hour Vital Signs Date Time Temp Pulse Resp B/P (MAP) Pulse Ox O2 Delivery O2 Flow Rate FiO2 05/14/18 09:25 75 25 30 05/14/18 09:25 100 05/14/18 09:20 100 05/14/18 09:20 79 38 30 05/14/18 09:18 79 153/86 05/14/18 09:15 77 41 30 05/14/18 09:12 75 25 30 05/14/18 08:58 78 05/14/18 08:00 30 05/14/18 08:00 Mechanical Ventilator 05/14/18 08:00 98.7 79 27 153/86 (108) 100 98.7 05/14/18 06:52 80 26 30 05/14/18 06:00 99.3 05/14/18 05:30 85 24 30 05/14/18 05:26 100.5 05/14/18 04:00 100.5 95 21 146/71 (96) 98 100.5 05/14/18 04:00 92 05/14/18 04:00 Mechanical Ventilator 05/14/18 04:00 30 05/14/18 02:51 90 25 30 05/14/18 01:29 90 20 30 05/14/18 00:26 30 05/14/18 00:00 99.1 73 21 155/82 (106) 98 99.1 05/14/18 00:00 Mechanical Ventilator 05/14/18 00:00 77 05/13/18 23:31 80 26 30 05/13/18 21:09 68 21 30 05/13/18 20:37 79 151/81 05/13/18 20:00 82 05/13/18 20:00 99.0 98 23 151/81 (104) 99 99.0 05/13/18 20:00 30 05/13/18 20:00 Mechanical Ventilator 05/13/18 19:30 79 23 30 05/13/18 17:08 67 19 30 05/13/18 16:00 30 05/13/18 16:00 98.0 66 21 147/75 (99) 100 98.0 05/13/18 16:00 Mechanical Ventilator 05/13/18 16:00 65 05/13/18 14:56 61 19 30 05/13/18 12:55 69 23 30 05/13/18 12:00 Mechanical Ventilator 05/13/18 12:00 72 05/13/18 12:00 30 05/13/18 12:00 99.6 78 24 132/77 (95) 100 99.6 Height (Feet): 5 Height (Inches): 7.00 Weight (Pounds): 139 HEENT: status post trach Respiratory/Chest: lungs clear Cardiovascular: normal rate, regular rhythm, no gallop/murmur Abdomen: soft, non tender, other - GT Extremities: no edema Laboratory Tests Test 05/14/18 08:20 05/14/18 08:30 White Blood Count 9.6 K/UL (4.8-10.8) Red Blood Count 3.69 M/UL (4.70-6.10) L Hemoglobin 9.3 G/DL (14.2-18.0) L Hematocrit 29.8 % (42.0-52.0) L Mean Corpuscular Volume 81 FL (80-99) Mean Corpuscular Hemoglobin 25.2 PG (27.0-31.0) L Mean Corpuscular Hemoglobin Concent 31.3 G/DL (32.0-36.0) L Red Cell Distribution Width 17.7 % (11.6-14.8) H Platelet Count 241 K/UL (150-450) Mean Platelet Volume 5.2 FL (6.5-10.1) L Neutrophils (%) (Auto) 77.7 % (45.0-75.0) H Lymphocytes (%) (Auto) 10.3 % (20.0-45.0) L Monocytes (%) (Auto) 11.2 % (1.0-10.0) H Eosinophils (%) (Auto) 0.2 % (0.0-3.0) Basophils (%) (Auto) 0.6 % (0.0-2.0) Urine Color Yellow Urine Appearance Cloudy Urine pH 6.5 (4.5-8.0) Urine Specific [place] 1.010 (1.005-1.035) Urine Protein 2+ (NEGATIVE) H Urine Glucose (UA) Negative (NEGATIVE) Urine Ketones Negative (NEGATIVE) Urine Blood 1+ (NEGATIVE) H Urine Nitrite Negative (NEGATIVE) Urine Bilirubin Negative (NEGATIVE) Urine Urobilinogen 1 MG/DL (0.0-1.0) H Urine Leukocyte Esterase 2+ (NEGATIVE) H Urine RBC 2-4 /HPF (0 - 0) H Urine WBC 5-10 /HPF (0 - 0) H Urine Squamous Epithelial Cells Few /LPF (NONE/OCC) Urine Bacteria Many /HPF (NONE) H Urine Yeast Occasional /HPF (NONE) H Current Medications Medications (Trade) Dose Ordered Sig/Iram Route PRN Reason Start Time Stop Time Status Last Admin Dose Admin Acetaminophen (Tylenol) 650 mg Q4H PRN ORAL Fever/Headache/Mild Pain 05/02/18 18:30 05/26/18 18:29 05/14/18 05:26 Artificial Tears (Akwa-Tears) 2 drop FIVE TIMES A DAY PRN BOTH EYES Dry Eyes 05/02/18 19:00 05/31/18 11:44 05/06/18 08:32 Ascorbic Acid (Vitamin C) 250 mg DAILY ORAL 05/11/18 09:00 06/10/18 08:59 05/14/18 09:19 Atorvastatin Calcium (Lipitor) 10 mg BEDTIME GT 05/02/18 21:00 05/28/18 20:59 05/13/18 20:37 Chlorhexidine Gluconate (Letha-Hex 2%) 1 applic DAILY@2000 TOPIC 05/02/18 20:00 05/31/18 19:59 05/13/18 20:36 Clonidine HCl (Catapres Tab) 0.1 mg Q4H PRN ORAL SBP >160 05/02/18 19:00 05/28/18 10:59 05/10/18 16:05 Docusate Sodium (Colace) 100 mg DAILY ORAL 05/03/18 09:00 05/27/18 08:59 05/14/18 09:18 Ethambutol HCl (Myambutol) 800 mg DAILY ORAL 05/03/18 09:00 05/27/18 08:59 05/14/18 09:17 Hydralazine HCl (Apresoline) 10 mg Q4H PRN IV SBP >160 05/02/18 18:18 05/28/18 18:17 Isoniazid (Inh) 300 mg DAILY ORAL 05/03/18 09:00 05/27/18 08:59 05/14/18 09:17 Lansoprazole (Prevacid) 30 mg Q12HR ORAL 05/05/18 21:00 06/04/18 20:59 05/14/18 09:17 Levetiracetam 750 mg/Dextrose 102.5 ml @ 440 mls/hr Q12HR IV 05/02/18 21:00 05/29/18 00:59 05/14/18 09:58 Metoprolol Tartrate (Lopressor) 50 mg Q12HR GT 05/02/18 21:00 05/28/18 20:59 05/14/18 09:18 Multivitamins Therapeutic (Therapeutic Multivitamin) 1 ea DAILY ORAL 05/03/18 09:00 05/27/18 08:59 05/14/18 09:17 Ondansetron HCl (Zofran) 4 mg Q6H PRN IVP Nausea & Vomiting 05/02/18 18:19 05/28/18 18:18 Pyrazinamide (Pza) 1,000 mg DAILY ORAL 05/03/18 09:00 05/28/18 08:59 05/14/18 09:17 Pyridoxine HCl (Vitamin B6) 50 mg DAILY ORAL 05/03/18 09:00 05/27/18 08:59 05/14/18 09:17 Rifampin (Rifadin) 600 mg DAILY ORAL 05/03/18 09:00 05/27/18 08:59 05/14/18 09:16 Sennosides (Senokot) 2 tab BIDPRN PRN GT Constipation 05/02/18 18:20 05/27/18 18:19 05/14/18 09:17 Sodium Chloride 1,000 ml @ 50 mls/hr Q20H IV 05/12/18 13:30 06/11/18 13:29 05/14/18 04:35 Tamsulosin HCl (Flomax) 0.4 mg BEDTIME ORAL 05/02/18 21:00 05/27/18 20:59 05/13/18 20:37 RENÉE RICHARDSON May 14, 2018 11:09
[2018-05-14 12:00] VITALS: BP 152/75
--- NOTE | 2018-05-14 12:28 | Diagnostic Imaging Report ---
Indication: Dyspnea Comparison: 05/11/2018 A single view chest radiograph was obtained. Findings: Tracheostomy and PICC line are stable. Heart size is normal and stable. There is a parenchymal density at the left lung base probable mild atelectasis. IMPRESSION: Mild atelectasis versus infiltrate at the left lung base.
--- NOTE | 2018-05-14 13:27 | Pulmonology Progress Note ---
Assessment/Plan Assessment/Plan IMPRESSION respiratory failure, vent dependent possible sepsis chronic encephalopathy trach debility hypoxemia htn metabolic acidosis ho hypertension ho seizures abnormal imaging PLAN reviewed care and discussed currently on AC- unable to wean with prior tries vent dependent and fully supported elevate head and monitor monitor ABG PRN suction PRN for change dc planning to snf- needs chronic vent management follow clinically for change and monitor oxygen as needed and monitor monitor hemodynamics and adjust prognosis guarded at present fully dependent at present medications/laboratory data/nursing notes reviewed in detail note reviewed and edited care discussed with RN and RT Subjective ROS Limited/Unobtainable: Yes Allergies: Coded Allergies: No Known Allergies (Unverified , 01/27/17) Subjective care reviewed on vent full support doing poorly Objective Last 24 Hour Vital Signs Date Time Temp Pulse Resp B/P (MAP) Pulse Ox O2 Delivery O2 Flow Rate FiO2 05/14/18 12:37 63 25 30 05/14/18 12:00 61 05/14/18 12:00 98.5 66 24 152/75 (100) 100 98.5 05/14/18 12:00 30 05/14/18 12:00 Mechanical Ventilator 05/14/18 11:15 62 19 30 05/14/18 09:25 75 25 30 05/14/18 09:25 100 05/14/18 09:20 100 05/14/18 09:20 79 38 30 05/14/18 09:18 79 153/86 05/14/18 09:15 77 41 30 05/14/18 09:12 75 25 30 05/14/18 08:58 78 05/14/18 08:00 30 05/14/18 08:00 Mechanical Ventilator 05/14/18 08:00 98.7 79 27 153/86 (108) 100 98.7 05/14/18 06:52 80 26 30 05/14/18 06:00 99.3 05/14/18 05:30 85 24 30 05/14/18 05:26 100.5 05/14/18 04:00 100.5 95 21 146/71 (96) 98 100.5 05/14/18 04:00 92 05/14/18 04:00 Mechanical Ventilator 05/14/18 04:00 30 05/14/18 02:51 90 25 30 05/14/18 01:29 90 20 30 10/10/18 00:26 30 05/14/18 00:00 99.1 73 21 155/82 (106) 98 99.1 05/14/18 00:00 Mechanical Ventilator 05/14/18 00:00 77 05/13/18 23:31 80 26 30 05/13/18 21:09 68 21 30 05/13/18 20:37 79 151/81 05/13/18 20:00 82 05/13/18 20:00 99.0 98 23 151/81 (104) 99 99.0 05/13/18 20:00 30 05/13/18 20:00 Mechanical Ventilator 05/13/18 19:30 79 23 30 05/13/18 17:08 67 19 30 05/13/18 16:00 30 05/13/18 16:00 98.0 66 21 147/75 (99) 100 98.0 05/13/18 16:00 Mechanical Ventilator 05/13/18 16:00 65 05/13/18 14:56 61 19 30 Intake and Output 05/13/18 05/14/18 19:00 07:00 Intake Total 1440.0 ml 760 ml Output Total 600 ml 1300 ml Balance 840.0 ml -540 ml Free Water 60 ml 60 ml IV Total 600.0 ml 100 ml Tube Feeding 780 ml 600 ml Output Urine Total 600 ml 1300 ml Objective WDWN NAD poorly responsive moderate breath sounds bilaterally with minimal rhonchi [id number] without MRG NABS nontender no HSM; gt no CCE cachectic as is poor response to pain skin noted comfortable reviewed and edited Laboratory Tests 05/14/18 08:20: White Blood Count 9.6, Red Blood Count 3.69L, Hemoglobin 9.3L, Hematocrit 29.8L , Mean Corpuscular Volume 81, Mean Corpuscular Hemoglobin 25.2L, Mean Corpuscular Hemoglobin Concent 31.3L, Red Cell Distribution Width 17.7H, Platelet Count 241, Mean Platelet Volume 5.2L, Neutrophils (%) (Auto) 77.7H, Lymphocytes (%) (Auto) 10.3L, Monocytes (%) (Auto) 11.2H, Eosinophils (%) (Auto ) 0.2, Basophils (%) (Auto) 0.6 05/14/18 08:30: Urine Color Yellow, Urine Appearance Cloudy, Urine pH 6.5, Urine Specific [place] 1.010, Urine Protein 2+H, Urine Glucose (UA) Negative, Urine Ketones Negative, Urine Blood 1+H, Urine Nitrite Negative, Urine Bilirubin Negative, Urine Urobilinogen 1H, Urine Leukocyte Esterase 2+H, Urine RBC 2-4H, Urine WBC 5 -10H, Urine Squamous Epithelial Cells Few, Urine Bacteria ManyH, Urine Yeast OccasionalH Current Medications Medications (Trade) Dose Ordered Sig/Iram Route PRN Reason Start Time Stop Time Status Last Admin Dose Admin Acetaminophen (Tylenol) 650 mg Q4H PRN ORAL Fever/Headache/Mild Pain 05/02/18 18:30 05/26/18 18:29 05/14/18 05:26 Artificial Tears (Akwa-Tears) 2 drop FIVE TIMES A DAY PRN BOTH EYES Dry Eyes 05/02/18 19:00 05/31/18 11:44 05/06/18 08:32 Ascorbic Acid (Vitamin C) 250 mg DAILY ORAL 05/11/18 09:00 06/10/18 08:59 05/14/18 09:19 Atorvastatin Calcium (Lipitor) 10 mg BEDTIME GT 05/02/18 21:00 05/28/18 20:59 05/13/18 20:37 Chlorhexidine Gluconate (Letha-Hex 2%) 1 applic DAILY@2000 TOPIC 05/02/18 20:00 05/31/18 19:59 05/13/18 20:36 Clonidine HCl (Catapres Tab) 0.1 mg Q4H PRN ORAL SBP >160 05/02/18 19:00 05/28/18 10:59 05/10/18 16:05 Docusate Sodium (Colace) 100 mg DAILY ORAL 05/03/18 09:00 05/27/18 08:59 05/14/18 09:18 Ethambutol HCl (Myambutol) 800 mg DAILY ORAL 05/03/18 09:00 05/27/18 08:59 05/14/18 09:17 Hydralazine HCl (Apresoline) 10 mg Q4H PRN IV SBP >160 05/02/18 18:18 05/28/18 18:17 Isoniazid (Inh) 300 mg DAILY ORAL 05/03/18 09:00 05/27/18 08:59 05/14/18 09:17 Lansoprazole (Prevacid) 30 mg Q12HR ORAL 05/05/18 21:00 06/04/18 20:59 05/14/18 09:17 Levetiracetam 750 mg/Dextrose 102.5 ml @ 440 mls/hr Q12HR IV 05/02/18 21:00 05/29/18 00:59 05/14/18 09:58 Metoprolol Tartrate (Lopressor) 50 mg Q12HR GT 05/02/18 21:00 05/28/18 20:59 05/14/18 09:18 Multivitamins Therapeutic (Therapeutic Multivitamin) 1 ea DAILY ORAL 05/03/18 09:00 05/27/18 08:59 05/14/18 09:17 Ondansetron HCl (Zofran) 4 mg Q6H PRN IVP Nausea & Vomiting 05/02/18 18:19 05/28/18 18:18 Pyrazinamide (Pza) 1,000 mg DAILY ORAL 05/03/18 09:00 05/28/18 08:59 05/14/18 09:17 Pyridoxine HCl (Vitamin B6) 50 mg DAILY ORAL 05/03/18 09:00 05/27/18 08:59 05/14/18 09:17 Rifampin (Rifadin) 600 mg DAILY ORAL 05/03/18 09:00 05/27/18 08:59 05/14/18 09:16 Sennosides (Senokot) 2 tab BIDPRN PRN GT Constipation 05/02/18 18:20 05/27/18 18:19 05/14/18 09:17 Sodium Chloride 1,000 ml @ 50 mls/hr Q20H IV 05/12/18 13:30 06/11/18 13:29 05/14/18 04:35 Tamsulosin HCl (Flomax) 0.4 mg BEDTIME ORAL 05/02/18 21:00 05/27/18 20:59 05/13/18 20:37 Nakul Cisse MD May 14, 2018 13:27
[2018-05-14 16:00] VITALS: BP 161/85
[2018-05-14] MEDS ORDERED: Sorbitol Solution UD 30ml GT PRN (19:00)
[2018-05-14 20:00] VITALS: BP 140/67
[2018-05-14] MEDS: Dyna-Hex 2% Top Sol 2oz TOPIC SCH (20:00)
--- NOTE | 2018-05-14 20:54 | Neurology Progress Note ---
Interim History Interim History Interim History Mr. Narvaez could only be aroused briefly on deep painful stimulation. He opened his eyes, made brief but definite eye contact and then went back to sleep. He withdrew all extremities on deep pain and winced. He did blink to threat. He continues to be seizure-free. He continues to be non-functional. His cardio-respiratory function is stable. Review of Systems Neuro Review of Systems Unable to obtain. Objective Physical Exam Last Vital Signs Date Time Temp Pulse Resp B/P (MAP) Pulse Ox O2 Delivery O2 Flow Rate FiO2 05/14/18 20:00 Mechanical Ventilator 05/14/18 19:51 58 26 30 05/14/18 16:27 161/85 05/14/18 16:00 97.6 100 97.6 05/10/18 20:00 6.0 Laboratory Tests Test 05/14/18 08:20 05/14/18 08:30 White Blood Count 9.6 K/UL (4.8-10.8) Red Blood Count 3.69 M/UL (4.70-6.10) L Hemoglobin 9.3 G/DL (14.2-18.0) L Hematocrit 29.8 % (42.0-52.0) L Mean Corpuscular Volume 81 FL (80-99) Mean Corpuscular Hemoglobin 25.2 PG (27.0-31.0) L Mean Corpuscular Hemoglobin Concent 31.3 G/DL (32.0-36.0) L Red Cell Distribution Width 17.7 % (11.6-14.8) H Platelet Count 241 K/UL (150-450) Mean Platelet Volume 5.2 FL (6.5-10.1) L Neutrophils (%) (Auto) 77.7 % (45.0-75.0) H Lymphocytes (%) (Auto) 10.3 % (20.0-45.0) L Monocytes (%) (Auto) 11.2 % (1.0-10.0) H Eosinophils (%) (Auto) 0.2 % (0.0-3.0) Basophils (%) (Auto) 0.6 % (0.0-2.0) Urine Color Yellow Urine Appearance Cloudy Urine pH 6.5 (4.5-8.0) Urine Specific [place] 1.010 (1.005-1.035) Urine Protein 2+ (NEGATIVE) H Urine Glucose (UA) Negative (NEGATIVE) Urine Ketones Negative (NEGATIVE) Urine Blood 1+ (NEGATIVE) H Urine Nitrite Negative (NEGATIVE) Urine Bilirubin Negative (NEGATIVE) Urine Urobilinogen 1 MG/DL (0.0-1.0) H Urine Leukocyte Esterase 2+ (NEGATIVE) H Urine RBC 2-4 /HPF (0 - 0) H Urine WBC 5-10 /HPF (0 - 0) H Urine Squamous Epithelial Cells Few /LPF (NONE/OCC) Urine Bacteria Many /HPF (NONE) H Urine Yeast Occasional /HPF (NONE) H Neurologic Exam Objective PHYSICAL EXAMINATION: GENERAL: He is a well-developed, ill-looking black gentleman, lying in bed, in no acute distress. HEAD: Normocephalic and atraumatic. EENT: Examination benign. NECK: No neck rigidity was observed. NEUROLOGICAL EXAMINATION: MENTAL STATUS EXAMINATION: He could only be aroused on deep painful stimuli briefly. SPEECH: Could not be tested. LANGUAGE: Could not be tested. CRANIAL NERVE EXAMINATION: II: He did blink to threat. III, IV & : External ocular movements were present. The pupils were 3 mm in diameter, equal, round, regular, and reactive sluggishly to light. V & VII: The corneal reflexes were present bilaterally. However, the right- sided reflex was significantly diminished compared to the left. VIII: He did not respond to sounds and had no nystagmus. IX & X: Gag reflex was suppressed. XI: The sternocleidomastoids and trapezii functioned minimally. XII: The tongue was in the midline. MOTOR SYSTEM: The tone was increased in all four extremities with spasticity more marked on the right than on the left. Examination of muscle mass revealed generalized muscle wasting, again more marked on the right than on the left. Examination of power was impossible to perform. He did move all four extremities minimally on deep pain with possibly right greater than left-sided weakness. SENSORY EXAMINATION: He responded appropriately to deep pain with less vigorous responses on the right side compared to the left. REFLEXES: Trace+ and bilaterally symmetrical at the biceps, triceps, brachioradialis. 0 at both knees and ankles. The plantar responses were extensor bilaterally. COORDINATION, STANCE & GAIT: Could not be tested. Impression/Recommendations Diagnostic Impression 1. Mr. Sagar Narvaez is a 72-year-old, [place] gentleman, of unknown handedness, who does have a past history of cerebrovascular disease with a prior stroke, pulmonary tuberculosis, chronic respiratory failure for which he has tracheostomy, and dysphagia for which he has a gastrostomy; who lives in custodial where he was noted to have an alteration in his mental state in the form of increased lethargy. He was thus brought into the [facility] emergency room and following admission, he apparently spiked a fever to 103 degrees Fahrenheit followed by multiple seizures. He was cooled down, given Ativan and started on Keppra and has been seizure-free since then. 2. He could not be aroused even on deep painful stimulation. He only withdrew all extremities on deep pain and winced. He did not blink to threat. He continues to be seizure-free. He continues to be non-functional. His cardio- respiratory function is stable. 3. On neurological examination, at this time, he can be aroused on deep pain. He does blink to threat. He is non verbal. His corneal reflex is diminished on the right side compared to the left. 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 In addition, he responds to deep pain, less on the right than on the left. His deep tendon reflexes are globally diminished and his plantar responses are extensor bilaterally. 4. Laboratory data on my initial evaluation revealed that his WBC count is creeping up from 4.4 to 9.5. He is significantly anemic with a hemoglobin of 8.8 G. His chemistry panel reveals that his bilirubin is elevated to 1.1. His alkaline phosphatase is elevated to 367, his AST is elevated to 52. His albumin is low at 1.9. His arterial blood gas reveals a pCO2 of 29 and a pO2 of 59 with a pH of 7.43. His urinalysis reveals 2+ leukocyte esterase with 2-4 RBCs and 2-4 WBCs per high-power field. 5. The EEG done on 04/27/18 revealed a moderately severe encephalopathy and left > right hemispheric dysfunction. No inter-ictal discharges were seen. 6. The CT of the brain done on 04/30/18 revealed multiple old bilateral cerebral infarcts involving the left > right brain. 7. 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 8. His mental state is still waxing and waning. He however has been more encephalopathic in the last few days. Recommendations 1. Continue present management. 2. Continue Keppra 750 mg q.12 hours. 3. Agree with plan to transfer to [facility]. Mercedes Coelho M.D., M.S.P.H. MERCEDES COELHO May 14, 2018 20:54
[2018-05-14] MEDS: Tamsulosin 0.4mg cap ORAL SCH (21:02)
--- NOTE | 2018-05-14 21:11 | General Progress Note ---
Assessment/Plan Assessment/Plan Assessment - suspected early cirrhosis based on imaging - hepatitis A/B/C negative - TRISTAN negative but F-Actin (+) - ? 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 Recommendations - not good candidate for liver biopsy or for steroids - watch LFT on INH - declining - will consider MRI - would follow conservatively - continue TF Subjective Allergies: Coded Allergies: No Known Allergies (Unverified , 01/27/17) Subjective No events overnight Tolerating TF non communicative LFT slowly declining CT --> New 10 mm hyperintense lesion in segment 3 but AFP normal Objective Last 24 Hour Vital Signs Date Time Temp Pulse Resp B/P (MAP) Pulse Ox O2 Delivery O2 Flow Rate FiO2 05/14/18 21:02 67 140/67 05/14/18 20:00 Mechanical Ventilator 05/14/18 19:51 58 26 30 05/14/18 17:29 60 21 30 05/14/18 17:07 61 05/14/18 16:27 161/85 05/14/18 16:00 30 05/14/18 16:00 Mechanical Ventilator 05/14/18 16:00 97.6 65 21 161/85 (110) 100 97.6 05/14/18 14:11 60 22 30 05/14/18 12:37 63 25 30 05/14/18 12:00 61 05/14/18 12:00 98.5 66 24 152/75 (100) 100 98.5 05/14/18 12:00 30 05/14/18 12:00 Mechanical Ventilator 05/14/18 11:15 62 19 30 05/14/18 09:25 75 25 30 05/14/18 09:25 100 05/14/18 09:20 100 05/14/18 09:20 79 38 30 05/14/18 09:18 79 153/86 05/14/18 09:15 77 41 30 05/14/18 09:12 75 25 30 05/14/18 08:58 78 05/14/18 08:00 30 05/14/18 08:00 Mechanical Ventilator 05/14/18 08:00 98.7 79 27 153/86 (108) 100 98.7 05/14/18 06:52 80 26 30 05/14/18 06:00 99.3 05/14/18 05:30 85 24 30 05/14/18 05:26 100.5 05/14/18 04:00 100.5 95 21 146/71 (96) 98 100.5 05/14/18 04:00 92 05/14/18 04:00 Mechanical Ventilator 05/14/18 04:00 30 05/14/18 02:51 90 25 30 05/14/18 01:29 90 20 30 05/14/18 00:26 30 05/14/18 00:00 99.1 73 21 155/82 (106) 98 99.1 05/14/18 00:00 Mechanical Ventilator 05/14/18 00:00 77 05/13/18 23:31 80 26 30 Intake and Output 05/13/18 05/14/18 19:00 07:00 Intake Total 1440.0 ml 820 ml Output Total 600 ml 1300 ml Balance 840.0 ml -480 ml Free Water 60 ml 60 ml IV Total 600.0 ml 100 ml Tube Feeding 780 ml 660 ml Output Urine Total 600 ml 1300 ml Laboratory Tests 05/14/18 08:20: White Blood Count 9.6, Red Blood Count 3.69L, Hemoglobin 9.3L, Hematocrit 29.8L , Mean Corpuscular Volume 81, Mean Corpuscular Hemoglobin 25.2L, Mean Corpuscular Hemoglobin Concent 31.3L, Red Cell Distribution Width 17.7H, Platelet Count 241, Mean Platelet Volume 5.2L, Neutrophils (%) (Auto) 77.7H, Lymphocytes (%) (Auto) 10.3L, Monocytes (%) (Auto) 11.2H, Eosinophils (%) (Auto ) 0.2, Basophils (%) (Auto) 0.6 05/14/18 08:30: Urine Color Yellow, Urine Appearance Cloudy, Urine pH 6.5, Urine Specific [place] 1.010, Urine Protein 2+H, Urine Glucose (UA) Negative, Urine Ketones Negative, Urine Blood 1+H, Urine Nitrite Negative, Urine Bilirubin Negative, Urine Urobilinogen 1H, Urine Leukocyte Esterase 2+H, Urine RBC 2-4H, Urine WBC 5 -10H, Urine Squamous Epithelial Cells Few, Urine Bacteria ManyH, Urine Yeast OccasionalH Height (Feet): 5 Height (Inches): 7.00 Weight (Pounds): 139 Objective Thin AA man non communicative NCAT (+) trach CTA RRR soft ND NT, (+) GT no edema Oli Amaya MD May 14, 2018 21:11
[2018-05-15] VITALS: BP 138/70
[2018-05-15 04:00] VITALS: BP 121/62
--- NOTE | 2018-05-15 07:29 | General Progress Note ---
Assessment/Plan Problem List: (1) Status epilepticus ICD Codes: G40.901 - Epilepsy, unspecified, not intractable, with status epilepticus SNOMED: 240262236 (2) Encephalopathy acute ICD Codes: G93.40 - Encephalopathy, unspecified SNOMED: 01939566, 960707793 (3) Probable sepsis ICD Codes: A41.9 - Sepsis, unspecified organism SNOMED: 687621052 (4) Dementia ICD Codes: F03.90 - Unspecified dementia without behavioral disturbance SNOMED: 37064259 (5) Encephalopathy ICD Codes: G93.40 - Encephalopathy, unspecified SNOMED: 02505135 (6) Sepsis ICD Codes: A41.9 - Sepsis, unspecified organism SNOMED: 42608126 (7) Pulmonary tuberculosis ICD Codes: A15.0 - Tuberculosis of lung SNOMED: 653112975 (8) Dehydration ICD Codes: E86.0 - Dehydration SNOMED: 95578131 (9) Altered level of consciousness ICD Codes: R40.4 - Transient alteration of awareness SNOMED: 7719767 Status: stable Assessment/Plan tylenol for fever follow up cultures vent prn wean as able abx per ID tb rx gt feeds wound care sz rx iv hydration dc planning if ok with all Subjective ROS Limited/Unobtainable: Yes Constitutional: Reports: malaise, weakness HEENT: Reports: no symptoms Cardiovascular: Reports: no symptoms Respiratory: Reports: no symptoms Gastrointestinal/Abdominal: Reports: difficulty swallowing Genitourinary: Reports: no symptoms Neurologic/Psychiatric: Reports: pre-existing deficit, seizure Endocrine: Reports: no symptoms Hematologic/Lymphatic: Reports: no symptoms Allergies: Coded Allergies: No Known Allergies (Unverified , 01/27/17) All Systems: reviewed and negative except above Subjective no more fevers. remains on the vent. unable to tolerate trach collar. Objective Last 24 Hour Vital Signs Date Time Temp Pulse Resp B/P (MAP) Pulse Ox O2 Delivery O2 Flow Rate FiO2 05/15/18 06:58 70 23 30 05/15/18 05:03 61 21 30 05/15/18 04:00 Mechanical Ventilator 05/15/18 04:00 57 05/15/18 04:00 30 05/15/18 04:00 99.0 62 21 121/62 (81) 98 99.0 05/15/18 03:20 56 22 30 05/15/18 01:18 58 21 30 05/15/18 00:00 Mechanical Ventilator 05/15/18 00:00 97.7 57 20 138/70 (92) 99 97.7 05/15/18 00:00 55 05/15/18 00:00 30 05/14/18 23:29 55 25 30 05/14/18 21:29 53 24 30 05/14/18 21:02 67 140/67 05/14/18 21:00 58 05/14/18 20:00 98.0 67 21 140/67 (91) 100 98.0 05/14/18 20:00 Mechanical Ventilator 05/14/18 20:00 30 05/14/18 19:51 58 26 30 05/14/18 17:29 60 21 30 05/14/18 17:07 61 05/14/18 16:27 161/85 05/14/18 16:00 30 05/14/18 16:00 Mechanical Ventilator 05/14/18 16:00 97.6 65 21 161/85 (110) 100 97.6 05/14/18 14:11 60 22 30 05/14/18 12:37 63 25 30 05/14/18 12:00 61 05/14/18 12:00 98.5 66 24 152/75 (100) 100 98.5 05/14/18 12:00 30 05/14/18 12:00 Mechanical Ventilator 05/14/18 11:15 62 19 30 05/14/18 09:25 75 25 30 05/14/18 09:25 100 05/14/18 09:20 100 05/14/18 09:20 79 38 30 05/14/18 09:18 79 153/86 05/14/18 09:15 77 41 30 05/14/18 09:12 75 25 30 05/14/18 08:58 78 05/14/18 08:00 30 05/14/18 08:00 Mechanical Ventilator 05/14/18 08:00 98.7 79 27 153/86 (108) 100 98.7 Intake and Output 05/14/18 05/15/18 19:00 07:00 Intake Total 1522.5 ml 1297.5 ml Output Total 700 ml 200 ml Balance 822.5 ml 1097.5 ml Free Water 50 ml 50 ml IV Total 702.5 ml 537.5 ml Tube Feeding 720 ml 660 ml Other 50 ml 50 ml Output Urine Total 700 ml 200 ml # Bowel Movements 1 Laboratory Tests 05/14/18 08:20: White Blood Count 9.6, Red Blood Count 3.69L, Hemoglobin 9.3L, Hematocrit 29.8L , Mean Corpuscular Volume 81, Mean Corpuscular Hemoglobin 25.2L, Mean Corpuscular Hemoglobin Concent 31.3L, Red Cell Distribution Width 17.7H, Platelet Count 241, Mean Platelet Volume 5.2L, Neutrophils (%) (Auto) 77.7H, Lymphocytes (%) (Auto) 10.3L, Monocytes (%) (Auto) 11.2H, Eosinophils (%) (Auto ) 0.2, Basophils (%) (Auto) 0.6 05/14/18 08:30: Urine Color Yellow, Urine Appearance Cloudy, Urine pH 6.5, Urine Specific [place] 1.010, Urine Protein 2+H, Urine Glucose (UA) Negative, Urine Ketones Negative, Urine Blood 1+H, Urine Nitrite Negative, Urine Bilirubin Negative, Urine Urobilinogen 1H, Urine Leukocyte Esterase 2+H, Urine RBC 2-4H, Urine WBC 5 -10H, Urine Squamous Epithelial Cells Few, Urine Bacteria ManyH, Urine Yeast OccasionalH Height (Feet): 5 Height (Inches): 7.00 Weight (Pounds): 140 Objective General Appearance: WD/WN, cachetic, thin Neck: supple Cardiovascular: tachycardia Respiratory/Chest: rhonchi - bilaterally Abdomen: normal bowel sounds, non tender, soft, no organomegaly Edema: no edema noted Arm (L), no edema noted Arm (R), no edema noted Leg (L), no edema noted Leg (R), no edema noted Pedal (L), no edema noted Pedal (R), no edema noted Generalized Jarrod Vásquez MD May 15, 2018 07:29
[2018-05-15 08:00] VITALS: BP 137/62
[2018-05-15] MEDS: Metoprolol Tartrate 50mg tab GT SCH ×2 (08:32→20:49)
[2018-05-15] MEDS: levETIRAcetam 750 MG in D5W 95 ML IV SCH ×2 (08:32→20:49)
[2018-05-15] MEDS: Docusate 100mg/10ml Liq ORAL SCH (08:33)
[2018-05-15] MEDS: Isoniazid 300mg tab ORAL SCH (08:38)
[2018-05-15] MEDS: Multivitamin w/Minerals tab ORAL SCH (08:38)
[2018-05-15] MEDS: Ascorbic Acid 500mg tab ORAL SCH (08:39)
--- NOTE | 2018-05-15 08:47 | Pulmonology Progress Note ---
Assessment/Plan Assessment/Plan IMPRESSION respiratory failure, vent dependent possible sepsis chronic encephalopathy trach debility hypoxemia htn metabolic acidosis ho hypertension ho seizures abnormal imaging PLAN reviewed care and discussed no change in exam currently on AC- unable to wean and requires full support vent dependent and fully supported elevate head and monitor monitor ABG PRN suction PRN for change dc planning to snf- await family decision follow clinically for change and monitor oxygen as needed and monitor monitor hemodynamics and adjust prognosis guarded at present fully dependent at present medications/laboratory data/nursing notes reviewed in detail note reviewed and edited care discussed with RN and RT Subjective ROS Limited/Unobtainable: Yes Allergies: Coded Allergies: No Known Allergies (Unverified , 01/27/17) Subjective care reviewed on vent full support doing poorly Objective Last 24 Hour Vital Signs Date Time Temp Pulse Resp B/P (MAP) Pulse Ox O2 Delivery O2 Flow Rate FiO2 05/15/18 08:32 71 137/62 05/15/18 06:58 70 23 30 05/15/18 05:03 61 21 30 05/15/18 04:00 Mechanical Ventilator 05/15/18 04:00 57 05/15/18 04:00 30 05/15/18 04:00 99.0 62 21 121/62 (81) 98 99.0 05/15/18 03:20 56 22 30 05/15/18 01:18 58 21 30 05/15/18 00:00 Mechanical Ventilator 05/15/18 00:00 97.7 57 20 138/70 (92) 99 97.7 05/15/18 00:00 55 05/15/18 00:00 30 05/14/18 23:29 55 25 30 05/14/18 21:29 53 24 30 05/14/18 21:02 67 140/67 05/14/18 21:00 58 05/14/18 20:00 98.0 67 21 140/67 (91) 100 98.0 05/14/18 20:00 Mechanical Ventilator 05/14/18 20:00 30 05/14/18 19:51 58 26 30 05/14/18 17:29 60 21 30 05/14/18 17:07 61 05/14/18 16:27 161/85 05/14/18 16:00 30 05/14/18 16:00 Mechanical Ventilator 05/14/18 16:00 97.6 65 21 161/85 (110) 100 97.6 05/14/18 14:11 60 22 30 05/14/18 12:37 63 25 30 05/14/18 12:00 61 05/14/18 12:00 98.5 66 24 152/75 (100) 100 98.5 05/14/18 12:00 30 05/14/18 12:00 Mechanical Ventilator 05/14/18 11:15 62 19 30 05/14/18 09:25 75 25 30 05/14/18 09:25 100 05/14/18 09:20 100 05/14/18 09:20 79 38 30 05/14/18 09:18 79 153/86 05/14/18 09:15 77 41 30 05/14/18 09:12 75 25 30 05/14/18 08:58 78 Intake and Output 05/14/18 05/15/18 19:00 07:00 Intake Total 1522.5 ml 1297.5 ml Output Total 700 ml 200 ml Balance 822.5 ml 1097.5 ml Free Water 50 ml 50 ml IV Total 702.5 ml 537.5 ml Tube Feeding 720 ml 660 ml Other 50 ml 50 ml Output Urine Total 700 ml 200 ml # Bowel Movements 1 Objective WDWN NAD poorly responsive moderate breath sounds bilaterally with minimal rhonchi [id number] without MRG NABS nontender no HSM; gt no CCE cachectic as is poor response to pain skin noted comfortable reviewed and edited Current Medications Medications (Trade) Dose Ordered Sig/Iram Route PRN Reason Start Time Stop Time Status Last Admin Dose Admin Acetaminophen (Tylenol) 650 mg Q4H PRN ORAL Fever/Headache/Mild Pain 05/02/18 18:30 05/26/18 18:29 05/14/18 05:26 Artificial Tears (Akwa-Tears) 2 drop FIVE TIMES A DAY PRN BOTH EYES Dry Eyes 05/02/18 19:00 05/31/18 11:44 05/06/18 08:32 Ascorbic Acid (Vitamin C) 250 mg DAILY ORAL 05/11/18 09:00 06/10/18 08:59 05/15/18 08:39 Atorvastatin Calcium (Lipitor) 10 mg BEDTIME GT 05/02/18 21:00 05/28/18 20:59 05/14/18 21:02 Chlorhexidine Gluconate (Letha-Hex 2%) 1 applic DAILY@2000 TOPIC 05/02/18 20:00 05/31/18 19:59 05/14/18 20:00 Clonidine HCl (Catapres Tab) 0.1 mg Q4H PRN ORAL SBP >160 05/02/18 19:00 05/28/18 10:59 05/14/18 16:27 Docusate Sodium (Colace) 100 mg DAILY ORAL 05/03/18 09:00 05/27/18 08:59 05/15/18 08:33 Ethambutol HCl (Myambutol) 800 mg DAILY ORAL 05/03/18 09:00 05/27/18 08:59 05/15/18 08:34 Hydralazine HCl (Apresoline) 10 mg Q4H PRN IV SBP >160 05/02/18 18:18 05/28/18 18:17 Isoniazid (Inh) 300 mg DAILY ORAL 05/03/18 09:00 05/27/18 08:59 05/15/18 08:38 Lansoprazole (Prevacid) 30 mg Q12HR ORAL 05/05/18 21:00 06/04/18 20:59 05/15/18 08:33 Levetiracetam 750 mg/Dextrose 102.5 ml @ 440 mls/hr Q12HR IV 05/02/18 21:00 05/29/18 00:59 05/15/18 08:32 Metoprolol Tartrate (Lopressor) 50 mg Q12HR GT 05/02/18 21:00 05/28/18 20:59 05/15/18 08:32 Multivitamins Therapeutic (Therapeutic Multivitamin) 1 ea DAILY ORAL 05/03/18 09:00 05/27/18 08:59 05/15/18 08:38 Ondansetron HCl (Zofran) 4 mg Q6H PRN IVP Nausea & Vomiting 05/02/18 18:19 05/28/18 18:18 Pyrazinamide (Pza) 1,000 mg DAILY ORAL 05/03/18 09:00 05/28/18 08:59 05/15/18 08:35 Pyridoxine HCl (Vitamin B6) 50 mg DAILY ORAL 05/03/18 09:00 05/27/18 08:59 05/14/18 09:17 Rifampin (Rifadin) 600 mg DAILY ORAL 05/03/18 09:00 05/27/18 08:59 05/15/18 08:35 Sennosides (Senokot) 2 tab BIDPRN PRN GT Constipation 05/02/18 18:20 05/27/18 18:19 05/14/18 16:27 Sodium Chloride 1,000 ml @ 50 mls/hr Q20H IV 05/12/18 13:30 06/11/18 13:29 05/15/18 00:46 Sorbitol (Sorbitol) 30 ml Q6H PRN GT Constipation 05/14/18 19:00 06/13/18 18:59 Tamsulosin HCl (Flomax) 0.4 mg BEDTIME ORAL 05/02/18 21:00 05/27/18 20:59 05/14/18 21:02 Nakul Cisse MD May 15, 2018 08:47
[2018-05-15] MEDS: Pyridoxine 50mg tab ORAL SCH (09:05)
--- NOTE | 2018-05-15 11:09 | Infectious Diseases Prog Note ---
Assessment/Plan Assessment/Plan A; Fever resolved Pneumonia with E. coli treated Fungal UTI Pulmonary TB AMS VDRF VRE colozation history of CVA Gastritis P; Continue TB treatment with RIPE Discontinue PICC line before discharge Subjective ROS Limited/Unobtainable: Yes Constitutional: Reports: other - afebrile Allergies: Coded Allergies: No Known Allergies (Unverified , 01/27/17) Objective Vital Signs Last 24 Hour Vital Signs Date Time Temp Pulse Resp B/P (MAP) Pulse Ox O2 Delivery O2 Flow Rate FiO2 05/15/18 10:44 59 24 30 05/15/18 09:16 63 20 30 05/15/18 08:32 71 137/62 05/15/18 08:00 98.2 71 20 137/62 (87) 99 98.2 05/15/18 08:00 30 05/15/18 08:00 Mechanical Ventilator 05/15/18 08:00 70 05/15/18 06:58 70 23 30 05/15/18 05:03 61 21 30 05/15/18 04:00 Mechanical Ventilator 05/15/18 04:00 57 05/15/18 04:00 30 05/15/18 04:00 99.0 62 21 121/62 (81) 98 99.0 05/15/18 03:20 56 22 30 05/15/18 01:18 58 21 30 05/15/18 00:00 Mechanical Ventilator 05/15/18 00:00 97.7 57 20 138/70 (92) 99 97.7 05/15/18 00:00 55 05/15/18 00:00 30 05/14/18 23:29 55 25 30 05/14/18 21:29 53 24 30 05/14/18 21:02 67 140/67 05/14/18 21:00 58 05/14/18 20:00 98.0 67 21 140/67 (91) 100 98.0 05/14/18 20:00 Mechanical Ventilator 05/14/18 20:00 30 05/14/18 19:51 58 26 30 05/14/18 17:29 60 21 30 05/14/18 17:07 61 05/14/18 16:27 161/85 05/14/18 16:00 30 05/14/18 16:00 Mechanical Ventilator 05/14/18 16:00 97.6 65 21 161/85 (110) 100 97.6 05/14/18 14:11 60 22 30 05/14/18 12:37 63 25 30 05/14/18 12:00 61 05/14/18 12:00 98.5 66 24 152/75 (100) 100 98.5 05/14/18 12:00 30 05/14/18 12:00 Mechanical Ventilator 05/14/18 11:15 62 19 30 Height (Feet): 5 Height (Inches): 7.00 Weight (Pounds): 140 General Appearance: no acute distress HEENT: status post trach Respiratory/Chest: lungs clear, other - on ventilator Cardiovascular: normal rate, other - left arm PICC line Abdomen: soft, non tender, other - GT feeding Extremities: no edema Neurologic/Psychiatric: aphasia Microbiology Date/Time Source Procedure Growth Status 05/14/18 08:30 Blood Blood Culture - Preliminary NO GROWTH AFTER 24 HOURS Resulted 05/14/18 08:20 Blood Blood Culture - Preliminary NO GROWTH AFTER 24 HOURS Resulted Current Medications Medications (Trade) Dose Ordered Sig/Iram Route PRN Reason Start Time Stop Time Status Last Admin Dose Admin Acetaminophen (Tylenol) 650 mg Q4H PRN ORAL Fever/Headache/Mild Pain 05/02/18 18:30 05/26/18 18:29 05/14/18 05:26 Artificial Tears (Akwa-Tears) 2 drop FIVE TIMES A DAY PRN BOTH EYES Dry Eyes 05/02/18 19:00 05/31/18 11:44 05/06/18 08:32 Ascorbic Acid (Vitamin C) 250 mg DAILY ORAL 05/11/18 09:00 06/10/18 08:59 05/15/18 08:39 Atorvastatin Calcium (Lipitor) 10 mg BEDTIME GT 05/02/18 21:00 05/28/18 20:59 05/14/18 21:02 Chlorhexidine Gluconate (Letha-Hex 2%) 1 applic DAILY@1999 TOPIC 05/02/18 20:00 05/31/18 19:59 05/14/18 20:00 Clonidine HCl (Catapres Tab) 0.1 mg Q4H PRN ORAL SBP >160 05/02/18 19:00 05/28/18 10:59 05/14/18 16:27 Docusate Sodium (Colace) 100 mg DAILY ORAL 05/03/18 09:00 05/27/18 08:59 05/15/18 08:33 Ethambutol HCl (Myambutol) 800 mg DAILY ORAL 05/03/18 09:00 05/27/18 08:59 05/15/18 08:34 Hydralazine HCl (Apresoline) 10 mg Q4H PRN IV SBP >160 05/02/18 18:18 05/28/18 18:17 Isoniazid (Inh) 300 mg DAILY ORAL 05/03/18 09:00 05/27/18 08:59 05/15/18 08:38 Lansoprazole (Prevacid) 30 mg Q12HR ORAL 05/05/18 21:00 06/04/18 20:59 05/15/18 08:33 Levetiracetam 750 mg/Dextrose 102.5 ml @ 440 mls/hr Q12HR IV 05/02/18 21:00 05/29/18 00:59 05/15/18 08:32 Metoprolol Tartrate (Lopressor) 50 mg Q12HR GT 05/02/18 21:00 05/28/18 20:59 05/15/18 08:32 Multivitamins Therapeutic (Therapeutic Multivitamin) 1 ea DAILY ORAL 05/03/18 09:00 05/27/18 08:59 05/15/18 08:38 Ondansetron HCl (Zofran) 4 mg Q6H PRN IVP Nausea & Vomiting 05/02/18 18:19 05/28/18 18:18 Pyrazinamide (Pza) 1,000 mg DAILY ORAL 05/03/18 09:00 05/28/18 08:59 05/15/18 08:35 Pyridoxine HCl (Vitamin B6) 50 mg DAILY ORAL 05/03/18 09:00 05/27/18 08:59 05/15/18 09:05 Rifampin (Rifadin) 600 mg DAILY ORAL 05/03/18 09:00 05/27/18 08:59 05/15/18 08:35 Sennosides (Senokot) 2 tab BIDPRN PRN GT Constipation 05/02/18 18:20 05/27/18 18:19 05/14/18 16:27 Sodium Chloride 1,000 ml @ 50 mls/hr Q20H IV 05/12/18 13:30 06/11/18 13:29 05/15/18 00:46 Sorbitol (Sorbitol) 30 ml Q6H PRN GT Constipation 05/14/18 19:00 06/13/18 18:59 Tamsulosin HCl (Flomax) 0.4 mg BEDTIME ORAL 05/02/18 21:00 05/27/18 20:59 05/14/18 21:02 Rahul Shen MD May 15, 2018 11:09
[2018-05-15 12:00] VITALS: BP 146/63
[2018-05-15] MEDS ORDERED: Vancomycin 1.5 GM/D5W 250ML IVPB ONE (15:00)
[2018-05-15 16:00] VITALS: BP 161/77
[2018-05-15] MEDS ORDERED: Vancomycin 1.5 GM/D5W 250ML IVPB SCH (16:06)
--- NOTE | 2018-05-15 19:47 | Neurology Progress Note ---
Interim History Interim History Interim History Mr. Narvaez could only be aroused briefly on deep painful stimulation. He opened his eyes, made brief but definite eye contact and then went back to sleep. He localized sounds when his daughter called his name. He withdrew all extremities on deep pain and winced. He did blink to threat. He continues to be seizure-free. He continues to be non-functional. His cardio-respiratory function is stable. Review of Systems Neuro Review of Systems Unable to obtain. Objective Physical Exam Last Vital Signs Date Time Temp Pulse Resp B/P (MAP) Pulse Ox O2 Delivery O2 Flow Rate FiO2 05/15/18 19:36 57 21 30 05/15/18 16:00 Mechanical Ventilator 05/15/18 16:00 97.9 161/77 (105) 100 97.9 05/10/18 20:00 6.0 Neurologic Exam Objective PHYSICAL EXAMINATION: GENERAL: He is a well-developed, ill-looking black gentleman, lying in bed, in no acute distress. HEAD: Normocephalic and atraumatic. EENT: Examination benign. NECK: No neck rigidity was observed. NEUROLOGICAL EXAMINATION: MENTAL STATUS EXAMINATION: He could only be aroused on deep painful stimuli briefly. SPEECH: Could not be tested. LANGUAGE: Could not be tested. CRANIAL NERVE EXAMINATION: II: He did blink to threat. III, IV & : External ocular movements were present. The pupils were 3 mm in diameter, equal, round, regular, and reactive sluggishly to light. V & VII: The corneal reflexes were present bilaterally. However, the right- sided reflex was significantly diminished compared to the left. VIII: He did not respond to sounds and had no nystagmus. IX & X: Gag reflex was suppressed. XI: The sternocleidomastoids and trapezii functioned minimally. XII: The tongue was in the midline. MOTOR SYSTEM: The tone was increased in all four extremities with spasticity more marked on the right than on the left. Examination of muscle mass revealed generalized muscle wasting, again more marked on the right than on the left. Examination of power was impossible to perform. He did move all four extremities minimally on deep pain with possibly right greater than left-sided weakness. SENSORY EXAMINATION: He responded appropriately to deep pain with less vigorous responses on the right side compared to the left. REFLEXES: Trace+ and bilaterally symmetrical at the biceps, triceps, brachioradialis. 0 at both knees and ankles. The plantar responses were extensor bilaterally. COORDINATION, STANCE & GAIT: Could not be tested. Impression/Recommendations Diagnostic Impression 1. Mr. Sagar Narvaez is a 72-year-old, Iranian gentleman, of unknown handedness, who does have a past history of cerebrovascular disease with a prior stroke, pulmonary tuberculosis, chronic respiratory failure for which he has tracheostomy, and dysphagia for which he has a gastrostomy; who lives in assisted where he was noted to have an alteration in his mental state in the form of increased lethargy. He was thus brought into the [facility] emergency room and following admission, he apparently spiked a fever to 103 degrees Fahrenheit followed by multiple seizures. He was cooled down, given Ativan and started on Keppra and has been seizure-free since then. 2. He could only be aroused briefly on deep painful stimulation. He opened his eyes, made brief but definite eye contact and then went back to sleep. He localized sounds when his daughter called his name. He withdrew all extremities on deep pain and winced. He did blink to threat. He continues to be seizure-free. He continues to be non-functional. His cardio- respiratory function is stable. 3. On neurological examination, at this time, he can be aroused on deep pain. He does blink to threat. He is non verbal. His corneal reflex is diminished on the right side compared to the left. 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 In addition, he responds to deep pain, less on the right than on the left. His deep tendon reflexes are globally diminished and his plantar responses are extensor bilaterally. 4. Laboratory data on my initial evaluation revealed that his WBC count is creeping up from 4.4 to 9.5. He is significantly anemic with a hemoglobin of 8.8 G. His chemistry panel reveals that his bilirubin is elevated to 1.1. His alkaline phosphatase is elevated to 367, his AST is elevated to 52. His albumin is low at 1.9. His arterial blood gas reveals a pCO2 of 29 and a pO2 of 59 with a pH of 7.43. His urinalysis reveals 2+ leukocyte esterase with 2-4 RBCs and 2-4 WBCs per high-power field. 5. The EEG done on 04/27/18 revealed a moderately severe encephalopathy and left > right hemispheric dysfunction. No inter-ictal discharges were seen. 6. The CT of the brain done on 04/30/18 revealed multiple old bilateral cerebral infarcts involving the left > right brain. 7. 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 8. His mental state is still waxing and waning. He however has been more encephalopathic in the last few days. Recommendations 1. Continue present management. 2. Continue Keppra 750 mg q.12 hours. 3. Agree with plan to transfer to SNF. Mercedes Coelho M.D., M.S.P.Rosa M. MERCEDES COELHO May 15, 2018 19:47
[2018-05-15 20:00] VITALS: BP 155/73
[2018-05-15] MEDS: Dyna-Hex 2% Top Sol 2oz TOPIC SCH (20:48)
[2018-05-15] MEDS: Tamsulosin 0.4mg cap ORAL SCH (20:50)
--- NOTE | 2018-05-15 22:33 | General Progress Note ---
Assessment/Plan Assessment/Plan Assessment - suspected early cirrhosis based on imaging - hepatitis A/B/C negative - TRISTAN negative but F-Actin (+) - ? 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 Recommendations - not good candidate for liver biopsy or for steroids - watch LFT on INH - declining - will consider MRI - would follow conservatively - continue TF Subjective Allergies: Coded Allergies: No Known Allergies (Unverified , 01/27/17) Subjective No events overnight Tolerating TF non communicative LFT slowly declining Objective Last 24 Hour Vital Signs Date Time Temp Pulse Resp B/P (MAP) Pulse Ox O2 Delivery O2 Flow Rate FiO2 05/15/18 21:50 56 24 30 05/15/18 20:49 60 154/74 05/15/18 19:36 57 21 30 05/15/18 17:21 77 29 30 05/15/18 16:00 30 05/15/18 16:00 Mechanical Ventilator 05/15/18 16:00 60 05/15/18 16:00 97.9 54 24 161/77 (105) 100 97.9 05/15/18 14:50 57 18 30 05/15/18 12:30 60 30 30 05/15/18 12:26 100 05/15/18 12:00 Mechanical Ventilator 05/15/18 12:00 30 05/15/18 12:00 58 05/15/18 12:00 98.1 59 22 146/63 (90) 100 98.1 05/15/18 10:44 59 24 30 05/15/18 09:16 63 20 30 05/15/18 08:32 71 137/62 05/15/18 08:00 98.2 71 20 137/62 (87) 99 98.2 05/15/18 08:00 30 05/15/18 08:00 Mechanical Ventilator 05/15/18 08:00 70 05/15/18 06:58 70 23 30 05/15/18 05:03 61 21 30 05/15/18 04:00 Mechanical Ventilator 05/15/18 04:00 57 05/15/18 04:00 30 05/15/18 04:00 99.0 62 21 121/62 (81) 98 99.0 05/15/18 03:20 56 22 30 05/15/18 01:18 58 21 30 05/15/18 00:00 Mechanical Ventilator 05/15/18 00:00 97.7 57 20 138/70 (92) 99 97.7 05/15/18 00:00 55 05/15/18 00:00 30 05/14/18 23:29 55 25 30 Intake and Output 05/14/18 05/15/18 19:00 07:00 Intake Total 1522.5 ml 1297.5 ml Output Total 700 ml 200 ml Balance 822.5 ml 1097.5 ml Free Water 50 ml 50 ml IV Total 702.5 ml 537.5 ml Tube Feeding 720 ml 660 ml Other 50 ml 50 ml Output Urine Total 700 ml 200 ml # Bowel Movements 1 Height (Feet): 5 Height (Inches): 7.00 Weight (Pounds): 140 Objective very thin AA man non communicative NCAT (+) trach CTA RRR soft ND NT, (+) GT no edema Oli Amaya MD May 15, 2018 22:33
[2018-05-16] VITALS: BP 146/72
--- NOTE | 2018-05-16 02:30 | Progress Note ---
DATE: 05/15/2018 CARDIOLOGY PROGRESS NOTE SUBJECTIVE: The patient has defervesced. No signs of new infection. He remains with T-max 99 today. PHYSICAL EXAMINATION: VITAL SIGNS: Blood pressure 121/62 and heart rate 62. Monitored rhythm, sinus with episodes of sinus bradycardia. GENERAL: He is on ventilator support. He failed weaning efforts. He has a tracheostomy. LUNGS: Coarse breath sounds. Scattered rhonchi. Thin trach secretions. HEART: Regular rhythm and rate. Normal S1, S2 with a fourth heart sound. ABDOMEN: Soft and nontender. G-tube intact. EXTREMITIES: With no edema. IMPRESSION: 1. Ventilator-dependent respiratory failure. 2. Pulmonary tuberculosis. 3. Chronic diastolic congestive heart failure. 4. Acute myocardial ischemia, resolved. 5. Sinus bradycardia, asymptomatic, on beta-blockers. 6. Sepsis, recovered with no longer in shock. PLAN: 1. Stable from cardiovascular standpoint for subacute facility. 2. No change in cardiovascular medications planned at this time. 3. May require periodic hydration by IV route based on clinical parameters. 4. Continue beta-cr at current dosing. 5. We will follow. Jones Arauz M.D. DR: MARCIAL JOB#: [id number] CC:
--- NOTE | 2018-05-16 02:30 | Progress Note ---
DATE: 05/14/2018 CARDIOLOGY PROGRESS NOTE SUBJECTIVE: The patient remains on ventilator support. He remains on IV fluids. He is poorly responsive. He continues to have fevers. T-max 100.5. OBJECTIVE: VITAL SIGNS: Blood pressure 146/71, pulse 95, and respiratory rate 21. Monitored rhythm sinus with rare atrial arrhythmia. LUNGS: Thin trach secretions. Bilateral rhonchi. HEART: Regular rhythm and rate. Normal S1 and S2. ABDOMEN: Soft. G-tube intact. EXTREMITIES: No edema. LABORATORY DATA: White count 9.6. . Chemistry pending. Urinalysis with 5 to 10 white cells. Chest x-ray revealed infiltrate at the left lung base. IMPRESSION: 1. Severe pulmonary tuberculosis. 2. Respiratory failure. 3. Healthcare-acquired pneumonia. 4. Fungal cystitis. 5. Acute on chronic diastolic congestive heart failure. 6. Paroxysmal atrial ectopy with acute myocardial ischemia, resolved. 7. Transaminitis, improved. 8. Possibly known urinary tract infection with fever noted. PLAN: 1. Antimicrobials per Infectious Disease devops consultant. 2. Ventilator support. 3. No diuresis at this time. 4. Continue beta-cr therapy, statin drug, and DVT prophylaxis. Jones Arauz M.D. : RUSLAN JOB#: [id number] CC:
[2018-05-16] MEDS: Vancomycin 750mg/NS 250ml IVPB SCH ×2 (02:36→14:04)
[2018-05-16 04:00] VITALS: BP 132/62
--- NOTE | 2018-05-16 07:18 | General Progress Note ---
Assessment/Plan Problem List: (1) Status epilepticus ICD Codes: G40.901 - Epilepsy, unspecified, not intractable, with status epilepticus SNOMED: 498739319 (2) Encephalopathy acute ICD Codes: G93.40 - Encephalopathy, unspecified SNOMED: 22366375, 173039173 (3) Probable sepsis ICD Codes: A41.9 - Sepsis, unspecified organism SNOMED: 636254692 (4) Dementia ICD Codes: F03.90 - Unspecified dementia without behavioral disturbance SNOMED: 45150616 (5) Encephalopathy ICD Codes: G93.40 - Encephalopathy, unspecified SNOMED: 32989509 (6) Sepsis ICD Codes: A41.9 - Sepsis, unspecified organism SNOMED: 16483433 (7) Pulmonary tuberculosis ICD Codes: A15.0 - Tuberculosis of lung SNOMED: 208420839 (8) Dehydration ICD Codes: E86.0 - Dehydration SNOMED: 87133623 (9) Altered level of consciousness ICD Codes: R40.4 - Transient alteration of awareness SNOMED: 4431665 Status: stable, progressing Assessment/Plan vent support wean as able gt feeds wound care follow up Ucx- GNR ssz rx dc planning if ok with all. Subjective ROS Limited/Unobtainable: No Constitutional: Reports: malaise, weakness HEENT: Reports: no symptoms Cardiovascular: Reports: no symptoms Respiratory: Reports: shortness of breath Gastrointestinal/Abdominal: Reports: no symptoms Genitourinary: Reports: no symptoms Neurologic/Psychiatric: Reports: pre-existing deficit, seizure Endocrine: Reports: no symptoms Hematologic/Lymphatic: Reports: no symptoms Allergies: Coded Allergies: No Known Allergies (Unverified , 01/27/17) All Systems: reviewed and negative except above Subjective no more fevers. remains on the vent. unable to tolerate trach collar. ucx with gnr. Objective Last 24 Hour Vital Signs Date Time Temp Pulse Resp B/P (MAP) Pulse Ox O2 Delivery O2 Flow Rate FiO2 05/16/18 06:52 52 23 30 05/16/18 05:05 55 22 30 05/16/18 04:03 58 05/16/18 04:03 30 05/16/18 04:02 Mechanical Ventilator 05/16/18 04:00 99.0 57 24 132/62 (85) 100 99.0 05/16/18 03:02 58 24 30 05/16/18 01:20 Mechanical Ventilator 30 05/16/18 01:17 56 19 Mechanical Ventilator 30 05/16/18 01:15 59 19 30 05/16/18 00:30 58 05/16/18 00:00 30 05/16/18 00:00 Mechanical Ventilator 05/16/18 00:00 98.4 58 20 146/72 (96) 100 98.4 05/15/18 23:30 57 23 30 05/15/18 21:50 56 24 30 05/15/18 20:49 60 154/74 05/15/18 20:00 60 05/15/18 20:00 97.3 60 27 155/73 (100) 100 97.3 05/15/18 20:00 Mechanical Ventilator 05/15/18 20:00 30 05/15/18 19:36 57 21 30 05/15/18 17:21 77 29 30 05/15/18 16:00 30 05/15/18 16:00 Mechanical Ventilator 05/15/18 16:00 60 05/15/18 16:00 97.9 54 24 161/77 (105) 100 97.9 05/15/18 14:50 57 18 30 05/15/18 12:30 60 30 30 05/15/18 12:26 100 05/15/18 12:00 Mechanical Ventilator 05/15/18 12:00 30 05/15/18 12:00 58 05/15/18 12:00 98.1 59 22 146/63 (90) 100 98.1 05/15/18 10:44 59 24 30 05/15/18 09:16 63 20 30 05/15/18 08:32 71 137/62 05/15/18 08:00 98.2 71 20 137/62 (87) 99 98.2 05/15/18 08:00 30 05/15/18 08:00 Mechanical Ventilator 05/15/18 08:00 70 Intake and Output 05/15/18 05/16/18 19:00 07:00 Intake Total 1160 ml 1565.000 ml Output Total 700 ml 800 ml Balance 460 ml 765.000 ml IV Total 1040 ml 905.000 ml Tube Feeding 120 ml 660 ml Output Urine Total 700 ml 800 ml # Bowel Movements 2 Height (Feet): 5 Height (Inches): 7.00 Weight (Pounds): 142 Objective General Appearance: WD/WN, cachetic, thin Neck: supple Cardiovascular: tachycardia Respiratory/Chest: rhonchi - bilaterally Abdomen: normal bowel sounds, non tender, soft, no organomegaly Edema: no edema noted Arm (L), no edema noted Arm (R), no edema noted Leg (L), no edema noted Leg (R), no edema noted Pedal (L), no edema noted Pedal (R), no edema noted Generalized Jarrod Vásquez MD May 16, 2018 07:18
[2018-05-16] MEDS ORDERED: PZA500 M1 ORAL (07:37)
[2018-05-16] MEDS ORDERED: KEPPRA750 MG ORAL (07:37)
[2018-05-16] MEDS ORDERED: ASCORBIC ACID500 M4 ORAL (07:37)
[2018-05-16] MEDS ORDERED: INH300 MG ORAL (07:37)
[2018-05-16] MEDS ORDERED: LANSOPRAZOLE30 MG ORAL (07:37)
[2018-05-16] MEDS ORDERED: COLACE100 MG/10 ORAL (07:37)
[2018-05-16] MEDS ORDERED: ARTIFICIAL TEAR15 ML BOTH EYES (07:37)
[2018-05-16] MEDS ORDERED: MYAMBUTOL400 MG ORAL (07:37)
[2018-05-16] MEDS ORDERED: VITAMIN B650 M1 ORAL (07:37)
[2018-05-16] MEDS ORDERED: ACETAMINOPHEN325 M1 ORAL (07:37)
[2018-05-16] MEDS ORDERED: RIFAMPIN150 MG ORAL (07:37)
[2018-05-16] MEDS ORDERED: FLOMAX0.4 MG ORAL (07:37)
[2018-05-16] MEDS ORDERED: METOPROLOL TART50 MG GT (07:37)
[2018-05-16] MEDS ORDERED: LIPITOR10 MG GT (07:37)
[2018-05-16 08:00] VITALS: BP 151/68
[2018-05-16] MEDS: Docusate 100mg/10ml Liq ORAL SCH (08:22)
[2018-05-16] MEDS: Pyridoxine 50mg tab ORAL SCH (08:23)
[2018-05-16] MEDS: Multivitamin w/Minerals tab ORAL SCH (08:23)
[2018-05-16] MEDS: Metoprolol Tartrate 50mg tab GT SCH ×3 (08:24→20:11)
[2018-05-16] MEDS: Isoniazid 300mg tab ORAL SCH (08:24)
[2018-05-16] MEDS: Ascorbic Acid 500mg tab ORAL SCH (08:24)
--- NOTE | 2018-05-16 08:54 | Pulmonology Progress Note ---
Assessment/Plan Assessment/Plan IMPRESSION respiratory failure, vent dependent possible sepsis chronic encephalopathy trach debility hypoxemia htn metabolic acidosis ho hypertension ho seizures abnormal imaging PLAN reviewed care and same stable as is currently on AC- unable to wean and requires full support vent dependent and fully supported elevate head and monitor monitor ABG PRN suction PRN for change dc planning to snf- continue same oxygen as needed and monitor monitor hemodynamics and adjust prognosis guarded at present fully dependent at present medications/laboratory data/nursing notes reviewed in detail note reviewed and edited care discussed with RN and RT Subjective ROS Limited/Unobtainable: Yes Allergies: Coded Allergies: No Known Allergies (Unverified , 01/27/17) Subjective care reviewed on vent full support doing poorly Objective Last 24 Hour Vital Signs Date Time Temp Pulse Resp B/P (MAP) Pulse Ox O2 Delivery O2 Flow Rate FiO2 05/16/18 08:44 55 05/16/18 08:24 54 151/68 05/16/18 06:52 52 23 30 05/16/18 05:05 55 22 30 05/16/18 04:03 58 05/16/18 04:03 30 05/16/18 04:02 Mechanical Ventilator 05/16/18 04:00 99.0 57 24 132/62 (85) 100 99.0 05/16/18 03:02 58 24 30 05/16/18 01:20 Mechanical Ventilator 30 05/16/18 01:17 56 19 Mechanical Ventilator 30 05/16/18 01:15 59 19 30 05/16/18 00:30 58 05/16/18 00:00 30 05/16/18 00:00 Mechanical Ventilator 05/16/18 00:00 98.4 58 20 146/72 (96) 100 98.4 05/15/18 23:30 57 23 30 05/15/18 21:50 56 24 30 05/15/18 20:49 60 154/74 05/15/18 20:00 60 05/15/18 20:00 97.3 60 27 155/73 (100) 100 97.3 05/15/18 20:00 Mechanical Ventilator 05/15/18 20:00 30 05/15/18 19:36 57 21 30 05/15/18 17:21 77 29 30 05/15/18 16:00 30 05/15/18 16:00 Mechanical Ventilator 05/15/18 16:00 60 05/15/18 16:00 97.9 54 24 161/77 (105) 100 97.9 05/15/18 14:50 57 18 30 05/15/18 12:30 60 30 30 05/15/18 12:26 100 05/15/18 12:00 Mechanical Ventilator 05/15/18 12:00 30 05/15/18 12:00 58 05/15/18 12:00 98.1 59 22 146/63 (90) 100 98.1 05/15/18 10:44 59 24 30 05/15/18 09:16 63 20 30 Intake and Output 05/15/18 05/16/18 19:00 07:00 Intake Total 1160 ml 1565.000 ml Output Total 700 ml 800 ml Balance 460 ml 765.000 ml IV Total 1040 ml 905.000 ml Tube Feeding 120 ml 660 ml Output Urine Total 700 ml 800 ml # Bowel Movements 2 Objective WDWN NAD poorly responsive moderate breath sounds bilaterally with minimal rhonchi [id number] without MRG NABS nontender no HSM; gt no CCE cachectic as is poor response to pain skin noted comfortable reviewed and edited Microbiology Date/Time Source Procedure Growth Status 05/14/18 08:30 Blood Blood Culture - Preliminary NO GROWTH AFTER 24 HOURS Resulted 05/14/18 08:20 Blood Blood Culture - Preliminary Gram Positive Cocci Resulted 05/15/18 17:20 Sputum Gram Stain Pending Resulted 05/15/18 17:20 Sputum Sputum Culture - Preliminary Resulted 05/14/18 08:30 Indwelling Cath Urine Culture - Preliminary Gram Negative Bacillus 1 Resulted Current Medications Medications (Trade) Dose Ordered Sig/Iram Route PRN Reason Start Time Stop Time Status Last Admin Dose Admin Acetaminophen (Tylenol) 650 mg Q4H PRN ORAL Fever/Headache/Mild Pain 05/02/18 18:30 05/26/18 18:29 05/14/18 05:26 Artificial Tears (Akwa-Tears) 2 drop FIVE TIMES A DAY PRN BOTH EYES Dry Eyes 05/02/18 19:00 05/31/18 11:44 05/06/18 08:32 Ascorbic Acid (Vitamin C) 250 mg DAILY ORAL 05/11/18 09:00 06/10/18 08:59 05/16/18 08:24 Atorvastatin Calcium (Lipitor) 10 mg BEDTIME GT 05/02/18 21:00 05/28/18 20:59 05/15/18 20:48 Chlorhexidine Gluconate (Letha-Hex 2%) 1 applic DAILY@2000 TOPIC 05/02/18 20:00 05/31/18 19:59 05/15/18 20:48 Clonidine HCl (Catapres Tab) 0.1 mg Q4H PRN ORAL SBP >160 05/02/18 19:00 05/28/18 10:59 05/14/18 16:27 Docusate Sodium (Colace) 100 mg DAILY ORAL 05/03/18 09:00 05/27/18 08:59 05/16/18 08:22 Ethambutol HCl (Myambutol) 800 mg DAILY ORAL 05/03/18 09:00 05/27/18 08:59 05/16/18 08:23 Hydralazine HCl (Apresoline) 10 mg Q4H PRN IV SBP >160 05/02/18 18:18 05/28/18 18:17 Isoniazid (Inh) 300 mg DAILY ORAL 05/03/18 09:00 05/27/18 08:59 05/16/18 08:24 Lansoprazole (Prevacid) 30 mg Q12HR ORAL 05/05/18 21:00 06/04/18 20:59 05/16/18 08:22 Levetiracetam 750 mg/Dextrose 102.5 ml @ 440 mls/hr Q12HR IV 05/02/18 21:00 05/29/18 00:59 05/15/18 20:49 Metoprolol Tartrate (Lopressor) 50 mg Q12HR GT 05/02/18 21:00 05/28/18 20:59 05/15/18 20:49 Multivitamins Therapeutic (Therapeutic Multivitamin) 1 ea DAILY ORAL 05/03/18 09:00 05/27/18 08:59 05/16/18 08:23 Ondansetron HCl (Zofran) 4 mg Q6H PRN IVP Nausea & Vomiting 05/02/18 18:19 05/28/18 18:18 Pyrazinamide (Pza) 1,000 mg DAILY ORAL 05/03/18 09:00 05/28/18 08:59 05/16/18 08:23 Pyridoxine HCl (Vitamin B6) 50 mg DAILY ORAL 05/03/18 09:00 05/27/18 08:59 05/16/18 08:23 Rifampin (Rifadin) 600 mg DAILY ORAL 05/03/18 09:00 05/27/18 08:59 05/16/18 08:23 Sennosides (Senokot) 2 tab BIDPRN PRN GT Constipation 05/02/18 18:20 05/27/18 18:19 05/14/18 16:27 Sodium Chloride 1,000 ml @ 50 mls/hr Q20H IV 05/12/18 13:30 06/11/18 13:29 05/15/18 17:42 Sorbitol (Sorbitol) 30 ml Q6H PRN GT Constipation 05/14/18 19:00 06/13/18 18:59 Tamsulosin HCl (Flomax) 0.4 mg BEDTIME ORAL 05/02/18 21:00 05/27/18 20:59 05/15/18 20:50 Vancomycin HCl (Vanco rx to dose) 1 ea DAILY PRN MISC Per rx protocol 05/15/18 14:00 06/14/18 13:59 Vancomycin/Sodium Chloride 250 ml @ 166.667 mls/hr Q12HR@0300,1500 IVPB 05/16/18 03:00 05/21/18 02:59 05/16/18 02:36 Nakul Cisse MD May 16, 2018 08:54
[2018-05-16] MEDS: levETIRAcetam 750 MG in D5W 95 ML IV SCH ×2 (09:50→21:09)
[2018-05-16 10:56] LABS: EOSINOPHILS % (AUTO) 2.2 % (0.0-3.0); HEMATOCRIT 29.7 % (42.0-52.0); HEMOGLOBIN 9.2 G/DL (14.2-18.0); LYMPHOCYTES % (AUTO) 21.4 % (20.0-45.0); MEAN CORPUSCULAR VOLUME 78 FL (80-99); MONOCYTES % (AUTO) 19.3 % (1.0-10.0); NEUTROPHILS % (AUTO) 56.2 % (45.0-75.0); PLATELET COUNT 194 K/UL (150-450); RED BLOOD COUNT 3.78 M/UL (4.70-6.10); RED CELL DISTRIBUTION WIDTH 17.6 % (11.6-14.8); WHITE BLOOD COUNT 3.5 K/UL (4.8-10.8)
[2018-05-16 11:10] LABS: ALANINE AMINOTRANSFERASE 17 U/L (12-78); ALBUMIN 1.6 G/DL (3.4-5.0); ALBUMIN/GLOBULIN RATIO 0.3 (1.0-2.7); ALKALINE PHOSPHATASE 326 U/L (46-116); ANION GAP 8 mmol/L (5-15); ASPARTATE AMINO TRANSFERASE 40 U/L (15-37); BILIRUBIN,TOTAL 0.5 MG/DL (0.2-1.0); BLOOD UREA NITROGEN 25 mg/dL (7-18); CALCIUM 8.3 MG/DL (8.5-10.1); CARBON DIOXIDE 25 MMOL/L (21-32); CHLORIDE 109 MMOL/L (98-107); CREATININE 0.5 MG/DL (0.55-1.30); POTASSIUM 3.7 MMOL/L (3.5-5.1); SODIUM 142 MMOL/L (136-145)
--- NOTE | 2018-05-16 11:21 | Infectious Diseases Prog Note ---
Assessment/Plan Assessment/Plan antibiotics : vancomycin iv, isoniazid, rifampin, pyrazinamide, ethambutol, pyridoxine A 1. pulmonary TB 2. e.coli pneumonia s/p rx 3. e.coli UTI 4. respiratory failure 5. encephalopathy 6. increased LFT improving 7. gram positive sepsis P 1. continue isoniazid, rifampin, pyrazinamide, ethambutol, pyridoxine 2. will follow up cultures 3. continue iv vancomycin 4. start meropenem 5. consider removal of PICC line Subjective ROS Limited/Unobtainable: Yes Allergies: Coded Allergies: No Known Allergies (Unverified , 01/27/17) Objective Vital Signs Last 24 Hour Vital Signs Date Time Temp Pulse Resp B/P (MAP) Pulse Ox O2 Delivery O2 Flow Rate FiO2 05/16/18 10:34 100 05/16/18 09:23 56 32 30 05/16/18 09:20 54 25 30 05/16/18 08:44 55 05/16/18 08:24 54 151/68 05/16/18 08:00 30 05/16/18 08:00 Mechanical Ventilator 05/16/18 06:52 52 23 30 05/16/18 05:05 55 22 30 05/16/18 04:03 58 05/16/18 04:03 30 05/16/18 04:02 Mechanical Ventilator 05/16/18 04:00 99.0 57 24 132/62 (85) 100 99.0 05/16/18 03:02 58 24 30 05/16/18 01:20 Mechanical Ventilator 30 05/16/18 01:17 56 19 Mechanical Ventilator 30 05/16/18 01:15 59 19 30 05/16/18 00:30 58 05/16/18 00:00 30 05/16/18 00:00 Mechanical Ventilator 05/16/18 00:00 98.4 58 20 146/72 (96) 100 98.4 05/15/18 23:30 57 23 30 05/15/18 21:50 56 24 30 05/15/18 20:49 60 154/74 05/15/18 20:00 60 05/15/18 20:00 97.3 60 27 155/73 (100) 100 97.3 05/15/18 20:00 Mechanical Ventilator 05/15/18 20:00 30 10/11/18 19:36 57 21 30 05/15/18 17:21 77 29 30 05/15/18 16:00 30 05/15/18 16:00 Mechanical Ventilator 05/15/18 16:00 60 05/15/18 16:00 97.9 54 24 161/77 (105) 100 97.9 05/15/18 14:50 57 18 30 05/15/18 12:30 60 30 30 05/15/18 12:26 100 05/15/18 12:00 Mechanical Ventilator 05/15/18 12:00 30 05/15/18 12:00 58 05/15/18 12:00 98.1 59 22 146/63 (90) 100 98.1 Height (Feet): 5 Height (Inches): 7.00 Weight (Pounds): 142 HEENT: status post trach Respiratory/Chest: lungs clear Cardiovascular: normal rate, regular rhythm, no gallop/murmur Abdomen: soft, non tender, other - GT Extremities: no edema, other - left arm PICC Microbiology Date/Time Source Procedure Growth Status 05/14/18 08:30 Blood Blood Culture - Preliminary NO GROWTH AFTER 24 HOURS Resulted 05/14/18 08:20 Blood Blood Culture - Preliminary Gram Positive Cocci Resulted 05/15/18 17:20 Sputum Gram Stain Pending Resulted 05/15/18 17:20 Sputum Sputum Culture - Preliminary Resulted 05/14/18 08:30 Indwelling Cath Urine Culture - Final Escherichia Coli - Esbl Complete Laboratory Tests Test 05/16/18 10:30 White Blood Count 3.5 K/UL (4.8-10.8) L Red Blood Count 3.78 M/UL (4.70-6.10) L Hemoglobin 9.2 G/DL (14.2-18.0) L Hematocrit 29.7 % (42.0-52.0) L Mean Corpuscular Volume 78 FL (80-99) L Mean Corpuscular Hemoglobin 24.2 PG (27.0-31.0) L Mean Corpuscular Hemoglobin Concent 30.9 G/DL (32.0-36.0) L Red Cell Distribution Width 17.6 % (11.6-14.8) H Platelet Count 194 K/UL (150-450) Mean Platelet Volume 5.5 FL (6.5-10.1) L Neutrophils (%) (Auto) 56.2 % (45.0-75.0) Lymphocytes (%) (Auto) 21.4 % (20.0-45.0) Monocytes (%) (Auto) 19.3 % (1.0-10.0) H Eosinophils (%) (Auto) 2.2 % (0.0-3.0) Basophils (%) (Auto) 1.0 % (0.0-2.0) Sodium Level 142 MMOL/L (136-145) Potassium Level 3.7 MMOL/L (3.5-5.1) Chloride Level 109 MMOL/L (98-107) H Carbon Dioxide Level 25 MMOL/L (21-32) Anion Gap 8 mmol/L (5-15) Blood Urea Nitrogen 25 mg/dL (7-18) H Creatinine 0.5 MG/DL (0.55-1.30) L Estimat Glomerular Filtration Rate mL/min (>60) Glucose Level 122 MG/DL (74-106) H Calcium Level 8.3 MG/DL (8.5-10.1) L Total Bilirubin 0.5 MG/DL (0.2-1.0) Aspartate Amino Transf (AST/SGOT) 40 U/L (15-37) H Alanine Aminotransferase (ALT/SGPT) 17 U/L (12-78) Alkaline Phosphatase 326 U/L (46-116) H Total Protein 6.4 G/DL (6.4-8.2) Albumin 1.6 G/DL (3.4-5.0) L Globulin 4.8 g/dL Albumin/Globulin Ratio 0.3 (1.0-2.7) L Current Medications Medications (Trade) Dose Ordered Sig/Iram Route PRN Reason Start Time Stop Time Status Last Admin Dose Admin Acetaminophen (Tylenol) 650 mg Q4H PRN ORAL Fever/Headache/Mild Pain 05/02/18 18:30 05/26/18 18:29 05/14/18 05:26 Artificial Tears (Akwa-Tears) 2 drop FIVE TIMES A DAY PRN BOTH EYES Dry Eyes 05/02/18 19:00 05/31/18 11:44 05/06/18 08:32 Ascorbic Acid (Vitamin C) 250 mg DAILY ORAL 05/11/18 09:00 06/10/18 08:59 05/16/18 08:24 Atorvastatin Calcium (Lipitor) 10 mg BEDTIME GT 05/02/18 21:00 05/28/18 20:59 05/15/18 20:48 Chlorhexidine Gluconate (Letha-Hex 2%) 1 applic DAILY@2000 TOPIC 05/02/18 20:00 05/31/18 19:59 05/15/18 20:48 Clonidine HCl (Catapres Tab) 0.1 mg Q4H PRN ORAL SBP >160 05/02/18 19:00 05/28/18 10:59 05/14/18 16:27 Docusate Sodium (Colace) 100 mg DAILY ORAL 05/03/18 09:00 05/27/18 08:59 05/16/18 08:22 Ethambutol HCl (Myambutol) 800 mg DAILY ORAL 05/03/18 09:00 05/27/18 08:59 05/16/18 08:23 Hydralazine HCl (Apresoline) 10 mg Q4H PRN IV SBP >160 05/02/18 18:18 05/28/18 18:17 Isoniazid (Inh) 300 mg DAILY ORAL 05/03/18 09:00 05/27/18 08:59 05/16/18 08:24 Lansoprazole (Prevacid) 30 mg Q12HR ORAL 05/05/18 21:00 06/04/18 20:59 05/16/18 08:22 Levetiracetam 750 mg/Dextrose 102.5 ml @ 440 mls/hr Q12HR IV 05/02/18 21:00 05/29/18 00:59 05/16/18 09:50 Metoprolol Tartrate (Lopressor) 50 mg Q12HR GT 05/02/18 21:00 05/28/18 20:59 05/15/18 20:49 Multivitamins Therapeutic (Therapeutic Multivitamin) 1 ea DAILY ORAL 05/03/18 09:00 05/27/18 08:59 05/16/18 08:23 Ondansetron HCl (Zofran) 4 mg Q6H PRN IVP Nausea & Vomiting 05/02/18 18:19 05/28/18 18:18 Pyrazinamide (Pza) 1,000 mg DAILY ORAL 05/03/18 09:00 05/28/18 08:59 05/16/18 08:23 Pyridoxine HCl (Vitamin B6) 50 mg DAILY ORAL 05/03/18 09:00 05/27/18 08:59 05/16/18 08:23 Rifampin (Rifadin) 600 mg DAILY ORAL 05/03/18 09:00 05/27/18 08:59 05/16/18 08:23 Sennosides (Senokot) 2 tab BIDPRN PRN GT Constipation 05/02/18 18:20 05/27/18 18:19 05/14/18 16:27 Sodium Chloride 1,000 ml @ 50 mls/hr Q20H IV 05/12/18 13:30 06/11/18 13:29 05/15/18 17:42 Sorbitol (Sorbitol) 30 ml Q6H PRN GT Constipation 05/14/18 19:00 06/13/18 18:59 Tamsulosin HCl (Flomax) 0.4 mg BEDTIME ORAL 05/02/18 21:00 05/27/18 20:59 05/15/18 20:50 Vancomycin HCl (Vanco rx to dose) 1 ea DAILY PRN MISC Per rx protocol 05/15/18 14:00 06/14/18 13:59 Vancomycin/Sodium Chloride 250 ml @ 166.667 mls/hr Q12HR@0300,1500 IVPB 05/16/18 03:00 05/21/18 02:59 05/16/18 02:36 Sergio Urban MD May 16, 2018 11:20
[2018-05-16 12:00] VITALS: BP 157/77
[2018-05-16] MEDS: Meropenem 500 MG in NS 55 ML IVPB SCH ×2 (14:04→21:09)
--- NOTE | 2018-05-16 15:14 | Neurology Progress Note ---
Interim History Interim History Interim History Mr. Narvaez was sleeping when I went to see him. He could be aroused. When aroused, his eyes were open and he made brief eye contact. He turned his eyes and head towards the side of vocal stimulation. He blinked to threat. He was non verbal. He continues to be seizure-free. He continues to be non-functional. His cardio-respiratory function is stable. Review of Systems Neuro Review of Systems Unable to obtain. Objective Physical Exam Last Vital Signs Date Time Temp Pulse Resp B/P (MAP) Pulse Ox O2 Delivery O2 Flow Rate FiO2 05/16/18 14:50 58 25 30 05/16/18 12:00 Mechanical Ventilator 05/16/18 10:34 100 05/16/18 08:24 151/68 05/16/18 04:00 99.0 99.0 05/10/18 20:00 6.0 Laboratory Tests Test 05/16/18 10:30 White Blood Count 3.5 K/UL (4.8-10.8) L Red Blood Count 3.78 M/UL (4.70-6.10) L Hemoglobin 9.2 G/DL (14.2-18.0) L Hematocrit 29.7 % (42.0-52.0) L Mean Corpuscular Volume 78 FL (80-99) L Mean Corpuscular Hemoglobin 24.2 PG (27.0-31.0) L Mean Corpuscular Hemoglobin Concent 30.9 G/DL (32.0-36.0) L Red Cell Distribution Width 17.6 % (11.6-14.8) H Platelet Count 194 K/UL (150-450) Mean Platelet Volume 5.5 FL (6.5-10.1) L Neutrophils (%) (Auto) 56.2 % (45.0-75.0) Lymphocytes (%) (Auto) 21.4 % (20.0-45.0) Monocytes (%) (Auto) 19.3 % (1.0-10.0) H Eosinophils (%) (Auto) 2.2 % (0.0-3.0) Basophils (%) (Auto) 1.0 % (0.0-2.0) Sodium Level 142 MMOL/L (136-145) Potassium Level 3.7 MMOL/L (3.5-5.1) Chloride Level 109 MMOL/L (98-107) H Carbon Dioxide Level 25 MMOL/L (21-32) Anion Gap 8 mmol/L (5-15) Blood Urea Nitrogen 25 mg/dL (7-18) H Creatinine 0.5 MG/DL (0.55-1.30) L Estimat Glomerular Filtration Rate mL/min (>60) Glucose Level 122 MG/DL (74-106) H Calcium Level 8.3 MG/DL (8.5-10.1) L Total Bilirubin 0.5 MG/DL (0.2-1.0) Aspartate Amino Transf (AST/SGOT) 40 U/L (15-37) H Alanine Aminotransferase (ALT/SGPT) 17 U/L (12-78) Alkaline Phosphatase 326 U/L (46-116) H Total Protein 6.4 G/DL (6.4-8.2) Albumin 1.6 G/DL (3.4-5.0) L Globulin 4.8 g/dL Albumin/Globulin Ratio 0.3 (1.0-2.7) L Neurologic Exam Objective PHYSICAL EXAMINATION: GENERAL: He is a well-developed, ill-looking black gentleman, lying in bed, in no acute distress. HEAD: Normocephalic and atraumatic. EENT: Examination benign. NECK: No neck rigidity was observed. NEUROLOGICAL EXAMINATION: MENTAL STATUS EXAMINATION: He could only be aroused. When aroused, his eyes were open and he made brief eye contact. He turned his eyes and head towards the side of vocal stimulation. He could not cooperate for further mental status testing. SPEECH: Could not be tested. LANGUAGE: Could not be tested. CRANIAL NERVE EXAMINATION: II: He did blink to threat. III, IV & : External ocular movements were present. The pupils were 3 mm in diameter, equal, round, regular, and reactive sluggishly to light. V & VII: The corneal reflexes were present bilaterally. However, the right- sided reflex was significantly diminished compared to the left. VIII: He did not respond to sounds and had no nystagmus. IX & X: Gag reflex was suppressed. XI: The sternocleidomastoids and trapezii functioned minimally. XII: The tongue was in the midline. MOTOR SYSTEM: The tone was increased in all four extremities with spasticity more marked on the right than on the left. Examination of muscle mass revealed generalized muscle wasting, again more marked on the right than on the left. Examination of power was impossible to perform. He did move all four extremities minimally on deep pain with possibly right greater than left-sided weakness. SENSORY EXAMINATION: He responded appropriately to deep pain with less vigorous responses on the right side compared to the left. REFLEXES: Trace+ and bilaterally symmetrical at the biceps, triceps, brachioradialis. 0 at both knees and ankles. The plantar responses were extensor bilaterally. COORDINATION, STANCE & GAIT: Could not be tested. Impression/Recommendations Diagnostic Impression 1. Mr. Sagar Narvaez is a 72-year-old, [place] gentleman, of unknown handedness, who does have a past history of cerebrovascular disease with a prior stroke, pulmonary tuberculosis, chronic respiratory failure for which he has tracheostomy, and dysphagia for which he has a gastrostomy; who lives [place] [facility] where he was noted to have an alteration in his mental state in the form of increased lethargy. He was thus brought into the [facility] emergency room and following admission, he apparently spiked a fever to 103 degrees Fahrenheit followed by multiple seizures. He was cooled down, given Ativan and started on Keppra and has been seizure-free since then. 2. He was sleeping when I went to see him. He could be aroused. When aroused, his eyes were open and he made brief eye contact. He turned his eyes and head towards the side of vocal stimulation. He blinked to threat. He was non verbal. He continues to be seizure-free. He continues to be non-functional. His cardio- respiratory function is stable. 3. On neurological examination, at this time, he can be aroused. He makes eye contact. He does blink to threat. He is non verbal. His corneal reflex is diminished on the right side compared to the left. 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 In addition, he responds to deep pain, less on the right than on the left. His deep tendon reflexes are globally diminished and his plantar responses are extensor bilaterally. 4. Laboratory data on my initial evaluation revealed that his WBC count is creeping up from 4.4 to 9.5. He is significantly anemic with a hemoglobin of 8.8 G. His chemistry panel reveals that his bilirubin is elevated to 1.1. His alkaline phosphatase is elevated to 367, his AST is elevated to 52. His albumin is low at 1.9. His arterial blood gas reveals a pCO2 of 29 and a pO2 of 59 with a pH of 7.43. His urinalysis reveals 2+ leukocyte esterase with 2-4 RBCs and 2-4 WBCs per high-power field. 5. The EEG done on 04/27/18 revealed a moderately severe encephalopathy and left > right hemispheric dysfunction. No inter-ictal discharges were seen. 6. The CT of the brain done on 04/30/18 revealed multiple old bilateral cerebral infarcts involving the left > right brain. 7. 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 8. His mental state is still waxing and waning. He is minimally less encephalopathic today. Recommendations 1. Continue present management. 2. Continue Keppra 750 mg q.12 hours. 3. Agree with plan to transfer to SNF. Mercedes Coelho M.D., M.S.P.Rosa M. MERCEDES COELHO May 16, 2018 15:14
[2018-05-16 16:00] VITALS: BP 159/80
[2018-05-16 20:00] VITALS: BP 140/80
[2018-05-16] MEDS: Dyna-Hex 2% Top Sol 2oz TOPIC SCH (20:09)
[2018-05-16] MEDS: Tamsulosin 0.4mg cap ORAL SCH (20:09)
--- NOTE | 2018-05-16 20:12 | General Progress Note ---
Assessment/Plan Assessment/Plan Assessment - suspected early cirrhosis based on imaging - hepatitis A/B/C negative - TRISTAN negative but F-Actin (+) - ? 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 Recommendations - not good candidate for liver biopsy or for steroids - watch LFT on INH - declining - will consider MRI - would follow conservatively - continue TF - I will return Saturday to see pt Subjective Allergies: Coded Allergies: No Known Allergies (Unverified , 01/27/17) Subjective No events overnight Tolerating TF non communicative LFT slowly declining Objective Last 24 Hour Vital Signs Date Time Temp Pulse Resp B/P (MAP) Pulse Ox O2 Delivery O2 Flow Rate FiO2 05/16/18 20:10 60 140/80 05/16/18 19:09 53 20 30 05/16/18 17:14 61 25 30 05/16/18 16:40 30 05/16/18 16:35 59 05/16/18 16:00 97.3 52 28 159/80 (106) 99 97.3 05/16/18 16:00 Mechanical Ventilator 05/16/18 14:50 58 25 30 05/16/18 13:41 59 05/16/18 13:08 61 27 30 05/16/18 12:00 97.2 54 26 157/77 (103) 99 97.2 05/16/18 12:00 30 05/16/18 12:00 Mechanical Ventilator 05/16/18 11:24 58 27 30 05/16/18 10:34 100 05/16/18 09:23 56 32 30 05/16/18 09:20 54 25 30 05/16/18 08:44 55 05/16/18 08:24 54 151/68 05/16/18 08:00 97.7 54 28 151/68 (95) 100 97.7 05/16/18 08:00 30 05/16/18 08:00 Mechanical Ventilator 05/16/18 06:52 52 23 30 05/16/18 05:05 55 22 30 05/16/18 04:03 58 05/16/18 04:03 30 05/16/18 04:02 Mechanical Ventilator 05/16/18 04:00 99.0 57 24 132/62 (85) 100 99.0 05/16/18 03:02 58 24 30 05/16/18 01:20 Mechanical Ventilator 30 05/16/18 01:17 56 19 Mechanical Ventilator 30 05/16/18 01:15 59 19 30 05/16/18 00:30 58 05/16/18 00:00 30 05/16/18 00:00 Mechanical Ventilator 05/16/18 00:00 98.4 58 20 146/72 (96) 100 98.4 05/15/18 23:30 57 23 30 05/15/18 21:50 56 24 30 05/15/18 20:49 60 154/74 Intake and Output 05/15/18 05/16/18 19:00 07:00 Intake Total 1160 ml 1565.000 ml Output Total 700 ml 800 ml Balance 460 ml 765.000 ml IV Total 1040 ml 905.000 ml Tube Feeding 120 ml 660 ml Output Urine Total 700 ml 800 ml # Bowel Movements 2 Laboratory Tests 05/16/18 10:30: White Blood Count 3.5L, Red Blood Count 3.78L, Hemoglobin 9.2L, Hematocrit 29.7L , Mean Corpuscular Volume 78L, Mean Corpuscular Hemoglobin 24.2L, Mean Corpuscular Hemoglobin Concent 30.9L, Red Cell Distribution Width 17.6H, Platelet Count 194, Mean Platelet Volume 5.5L, Neutrophils (%) (Auto) 56.2, Lymphocytes (%) (Auto) 21.4, Monocytes (%) (Auto) 19.3H, Eosinophils (%) (Auto) 2.2, Basophils (%) (Auto) 1.0, Sodium Level 142, Potassium Level 3.7, Chloride Level 109H, Carbon Dioxide Level 25, Anion Gap 8, Blood Urea Nitrogen 25H, Creatinine 0.5L, Estimat Glomerular Filtration Rate , Glucose Level 122H, Calcium Level 8.3L, Total Bilirubin 0.5, Aspartate Amino Transf (AST/SGOT) 40H, Alanine Aminotransferase (ALT/SGPT) 17, Alkaline Phosphatase 326H, Total Protein 6.4, Albumin 1.6L, Globulin 4.8, Albumin/Globulin Ratio 0.3L Height (Feet): 5 Height (Inches): 7.00 Weight (Pounds): 142 Objective very thin AA man non communicative NCAT (+) trach CTA RRR soft ND NT, (+) GT no edema Oli Amaya MD May 16, 2018 20:12
[2018-05-17] VITALS: BP 150/77
--- NOTE | 2018-05-17 03:00 | Progress Note ---
DATE: 05/16/2018 CARDIOLOGY PROGRESS NOTE SUBJECTIVE: No new distress. Afebrile. Remains on vent. Cannot tolerate trach collar. On antimicrobials for urine infection. OBJECTIVE: VITAL SIGNS: Blood pressure 132/62, pulse 52, respiratory rate 24, and T-max 99. LUNGS: Thin trach secretions. Bilateral breath sounds. CARDIAC: Regular rhythm and rate. Normal S1 and S2. ABDOMEN: Soft. EXTREMITIES: No edema. IMPRESSION: 1. Urinary tract infection. 2. Pulmonary tuberculosis. 3. Tracheostomy and respiratory failure. 4. Sinus bradycardia, on beta-blockers. 5. Hypertensive heart disease. 6. Recovered myocardial ischemia. 7. Severe protein-calorie malnutrition. PLAN: 1. Antimicrobials. 2. Ventilator support. 3. Weaning efforts. 4. DVT prophylaxis. 5. Discontinue IV fluids. 6. Decrease beta-cr dosing. Jones Arauz M.D. DR: MARCIAL JOB#: [id number] CC:
[2018-05-17 04:00] VITALS: BP 153/77
[2018-05-17] MEDS ORDERED: Vancomycin 1gm in D5W 275ml IVPB SCH (04:00)
[2018-05-17] MEDS ORDERED: Vancomycin 750mg/NS 250ml IVPB ONE (05:00)
[2018-05-17] MEDS: Meropenem 500 MG in NS 55 ML IVPB SCH ×3 (06:00→22:30)
[2018-05-17 07:51] VITALS: BP 161/79
--- NOTE | 2018-05-17 08:33 | General Progress Note ---
Assessment/Plan Problem List: (1) Status epilepticus ICD Codes: G40.901 - Epilepsy, unspecified, not intractable, with status epilepticus SNOMED: 233280995 (2) Encephalopathy acute ICD Codes: G93.40 - Encephalopathy, unspecified SNOMED: 79094114, 483008649 (3) Probable sepsis ICD Codes: A41.9 - Sepsis, unspecified organism SNOMED: 525249022 (4) Dementia ICD Codes: F03.90 - Unspecified dementia without behavioral disturbance SNOMED: 63541077 (5) Encephalopathy ICD Codes: G93.40 - Encephalopathy, unspecified SNOMED: 28857700 (6) Sepsis ICD Codes: A41.9 - Sepsis, unspecified organism SNOMED: 35395644 (7) Pulmonary tuberculosis ICD Codes: A15.0 - Tuberculosis of lung SNOMED: 921561346 (8) Dehydration ICD Codes: E86.0 - Dehydration SNOMED: 16984837 (9) Altered level of consciousness ICD Codes: R40.4 - Transient alteration of awareness SNOMED: 8353723 Status: stable, progressing Assessment/Plan vent support wean as able gt feeds wound care follow up Ucx sz rx dc planning to [facility] when bed available Subjective ROS Limited/Unobtainable: No Constitutional: Reports: malaise, weakness HEENT: Reports: no symptoms Cardiovascular: Reports: no symptoms Respiratory: Reports: no symptoms Gastrointestinal/Abdominal: Reports: difficulty swallowing Genitourinary: Reports: no symptoms Neurologic/Psychiatric: Reports: paresthesia, pre-existing deficit, seizure Endocrine: Reports: no symptoms Hematologic/Lymphatic: Reports: anemia Allergies: Coded Allergies: No Known Allergies (Unverified , 01/27/17) All Systems: reviewed and negative except above Subjective no events. family now requesting transfer to [facility]. otherwise stable. no fever or chills. tolerating feeds Objective Last 24 Hour Vital Signs Date Time Temp Pulse Resp B/P (MAP) Pulse Ox O2 Delivery O2 Flow Rate FiO2 05/17/18 08:00 Mechanical Ventilator 05/17/18 08:00 30 05/17/18 07:51 97.6 55 22 161/79 (106) 100 97.6 05/17/18 05:16 57 21 30 05/17/18 04:00 Mechanical Ventilator 05/17/18 04:00 97.9 56 19 153/77 (102) 100 97.9 05/17/18 04:00 30 05/17/18 04:00 53 05/17/18 03:00 59 18 30 05/17/18 00:55 60 17 30 05/17/18 00:00 Mechanical Ventilator 05/17/18 00:00 53 05/17/18 00:00 30 05/17/18 00:00 97.9 54 20 150/77 (101) 100 97.9 05/16/18 22:48 56 19 30 05/16/18 20:59 55 22 30 05/16/18 20:11 59 140/80 05/16/18 20:00 Mechanical Ventilator 05/16/18 20:00 97.3 61 20 140/80 (100) 100 97.3 05/16/18 20:00 60 05/16/18 20:00 30 05/16/18 19:09 53 20 30 05/16/18 17:14 61 25 30 05/16/18 16:40 30 05/16/18 16:35 59 05/16/18 16:00 97.3 52 28 159/80 (106) 99 97.3 05/16/18 16:00 Mechanical Ventilator 05/16/18 14:50 58 25 30 05/16/18 13:41 59 05/16/18 13:08 61 27 30 05/16/18 12:00 97.2 54 26 157/77 (103) 99 97.2 05/16/18 12:00 30 05/16/18 12:00 Mechanical Ventilator 05/16/18 11:24 58 27 30 05/16/18 10:34 100 05/16/18 09:23 56 32 30 05/16/18 09:20 54 25 30 05/16/18 08:44 55 Intake and Output 05/16/18 05/17/18 19:00 07:00 Intake Total 360 ml 1377.5 ml Output Total 750 ml 1950 ml Balance -390 ml -572.5 ml Free Water 30 ml 150 ml IV Total 150 ml 507.5 ml Tube Feeding 180 ml 660 ml Other 60 ml Output Urine Total 750 ml 1950 ml # Bowel Movements 1 3 Laboratory Tests 05/16/18 10:30: White Blood Count 3.5L, Red Blood Count 3.78L, Hemoglobin 9.2L, Hematocrit 29.7L , Mean Corpuscular Volume 78L, Mean Corpuscular Hemoglobin 24.2L, Mean Corpuscular Hemoglobin Concent 30.9L, Red Cell Distribution Width 17.6H, Platelet Count 194, Mean Platelet Volume 5.5L, Neutrophils (%) (Auto) 56.2, Lymphocytes (%) (Auto) 21.4, Monocytes (%) (Auto) 19.3H, Eosinophils (%) (Auto) 2.2, Basophils (%) (Auto) 1.0, Sodium Level 142, Potassium Level 3.7, Chloride Level 109H, Carbon Dioxide Level 25, Anion Gap 8, Blood Urea Nitrogen 25H, Creatinine 0.5L, Estimat Glomerular Filtration Rate , Glucose Level 122H, Calcium Level 8.3L, Total Bilirubin 0.5, Aspartate Amino Transf (AST/SGOT) 40H, Alanine Aminotransferase (ALT/SGPT) 17, Alkaline Phosphatase 326H, Total Protein 6.4, Albumin 1.6L, Globulin 4.8, Albumin/Globulin Ratio 0.3L 05/17/18 02:00: Vancomycin Level Trough 11.0 Height (Feet): 5 Height (Inches): 7.00 Weight (Pounds): 163 Objective General Appearance: WD/WN, cachetic, thin Neck: supple Cardiovascular: tachycardia Respiratory/Chest: rhonchi - bilaterally Abdomen: normal bowel sounds, non tender, soft, no organomegaly Edema: no edema noted Arm (L), no edema noted Arm (R), no edema noted Leg (L), no edema noted Leg (R), no edema noted Pedal (L), no edema noted Pedal (R), no edema noted Generalized Jarrod Vásquez MD May 17, 2018 08:33
[2018-05-17] MEDS: Pyridoxine 50mg tab ORAL SCH (08:35)
[2018-05-17] MEDS: Metoprolol Tartrate 50mg tab GT SCH ×2 (08:35→20:54)
[2018-05-17] MEDS: Ascorbic Acid 500mg tab ORAL SCH (08:35)
[2018-05-17] MEDS: Docusate 100mg/10ml Liq ORAL SCH (08:35)
[2018-05-17] MEDS: Multivitamin w/Minerals tab ORAL SCH (08:36)
[2018-05-17] MEDS: Isoniazid 300mg tab ORAL SCH (08:36)
[2018-05-17] MEDS: levETIRAcetam 750 MG in D5W 95 ML IV SCH ×2 (09:09→21:09)
--- NOTE | 2018-05-17 09:16 | Pulmonology Progress Note ---
Assessment/Plan Assessment/Plan IMPRESSION respiratory failure, vent dependent possible sepsis chronic encephalopathy trach debility hypoxemia htn metabolic acidosis ho hypertension ho seizures abnormal imaging PLAN reviewed care and same stable and chronically ill currently on AC- unable to wean and requires full support vent dependent and fully supported elevate head and monitor monitor ABG PRN suction PRN for change dc planning to snf- continue same oxygen as needed and monitor monitor hemodynamics and adjust prognosis poor fully dependent on vent at present medications/laboratory data/nursing notes reviewed in detail note reviewed and edited care discussed with RN and RT Subjective ROS Limited/Unobtainable: Yes Allergies: Coded Allergies: No Known Allergies (Unverified , 01/27/17) Subjective care reviewed on vent full support doing poorly Objective Last 24 Hour Vital Signs Date Time Temp Pulse Resp B/P (MAP) Pulse Ox O2 Delivery O2 Flow Rate FiO2 05/17/18 08:38 57 23 30 05/17/18 08:36 161/79 05/17/18 08:35 55 161/79 05/17/18 08:00 Mechanical Ventilator 05/17/18 08:00 30 05/17/18 07:51 97.6 55 22 161/79 (106) 100 97.6 05/17/18 06:51 64 21 30 05/17/18 05:16 57 21 30 05/17/18 04:00 Mechanical Ventilator 05/17/18 04:00 97.9 56 19 153/77 (102) 100 97.9 05/17/18 04:00 30 05/17/18 04:00 53 05/17/18 03:00 59 18 30 05/17/18 00:55 60 17 30 05/17/18 00:00 Mechanical Ventilator 05/17/18 00:00 53 05/17/18 00:00 30 05/17/18 00:00 97.9 54 20 150/77 (101) 100 97.9 05/16/18 22:48 56 19 30 05/16/18 20:59 55 22 30 05/16/18 20:11 59 140/80 05/16/18 20:00 Mechanical Ventilator 05/16/18 20:00 97.3 61 20 140/80 (100) 100 97.3 05/16/18 20:00 60 05/16/18 20:00 30 05/16/18 19:09 53 20 30 05/16/18 17:14 61 25 30 05/16/18 16:40 30 05/16/18 16:35 59 05/16/18 16:00 97.3 52 28 159/80 (106) 99 97.3 05/16/18 16:00 Mechanical Ventilator 05/16/18 14:50 58 25 30 05/16/18 13:41 59 05/16/18 13:08 61 27 30 05/16/18 12:00 97.2 54 26 157/77 (103) 99 97.2 05/16/18 12:00 30 05/16/18 12:00 Mechanical Ventilator 05/16/18 11:24 58 27 30 05/16/18 10:34 100 05/16/18 09:23 56 32 30 05/16/18 09:20 54 25 30 Intake and Output 05/16/18 05/17/18 19:00 07:00 Intake Total 360 ml 1377.5 ml Output Total 750 ml 1950 ml Balance -390 ml -572.5 ml Free Water 30 ml 150 ml IV Total 150 ml 507.5 ml Tube Feeding 180 ml 660 ml Other 60 ml Output Urine Total 750 ml 1950 ml # Bowel Movements 1 3 Objective WDWN NAD poorly responsive moderate breath sounds bilaterally with minimal rhonchi [id number] without MRG NABS nontender no HSM; gt no CCE cachectic as is poor response to pain skin noted comfortable reviewed and edited Microbiology Date/Time Source Procedure Growth Status 05/15/18 17:20 Sputum Gram Stain - Final Resulted 05/15/18 17:20 Sputum Culture - Preliminary Gram Negative Gildardo Resulted Laboratory Tests 05/16/18 10:30: White Blood Count 3.5L, Red Blood Count 3.78L, Hemoglobin 9.2L, Hematocrit 29.7L , Mean Corpuscular Volume 78L, Mean Corpuscular Hemoglobin 24.2L, Mean Corpuscular Hemoglobin Concent 30.9L, Red Cell Distribution Width 17.6H, Platelet Count 194, Mean Platelet Volume 5.5L, Neutrophils (%) (Auto) 56.2, Lymphocytes (%) (Auto) 21.4, Monocytes (%) (Auto) 19.3H, Eosinophils (%) (Auto) 2.2, Basophils (%) (Auto) 1.0, Sodium Level 142, Potassium Level 3.7, Chloride Level 109H, Carbon Dioxide Level 25, Anion Gap 8, Blood Urea Nitrogen 25H, Creatinine 0.5L, Estimat Glomerular Filtration Rate , Glucose Level 122H, Calcium Level 8.3L, Total Bilirubin 0.5, Aspartate Amino Transf (AST/SGOT) 40H, Alanine Aminotransferase (ALT/SGPT) 17, Alkaline Phosphatase 326H, Total Protein 6.4, Albumin 1.6L, Globulin 4.8, Albumin/Globulin Ratio 0.3L 05/17/18 02:00: Vancomycin Level Trough 11.0 Current Medications Medications (Trade) Dose Ordered Sig/Iram Route PRN Reason Start Time Stop Time Status Last Admin Dose Admin Acetaminophen (Tylenol) 650 mg Q4H PRN ORAL Fever/Headache/Mild Pain 05/02/18 18:30 05/26/18 18:29 05/14/18 05:26 Artificial Tears (Akwa-Tears) 2 drop FIVE TIMES A DAY PRN BOTH EYES Dry Eyes 05/02/18 19:00 05/31/18 11:44 05/06/18 08:32 Ascorbic Acid (Vitamin C) 250 mg DAILY ORAL 05/11/18 09:00 06/10/18 08:59 05/17/18 08:35 Atorvastatin Calcium (Lipitor) 10 mg BEDTIME GT 05/02/18 21:00 05/28/18 20:59 05/16/18 20:09 Chlorhexidine Gluconate (Letha-Hex 2%) 1 applic DAILY@1999 TOPIC 05/02/18 20:00 05/31/18 19:59 05/16/18 20:09 Clonidine HCl (Catapres Tab) 0.1 mg Q4H PRN ORAL SBP >160 05/02/18 19:00 05/28/18 10:59 05/14/18 16:27 Docusate Sodium (Colace) 100 mg DAILY ORAL 05/03/18 09:00 05/27/18 08:59 05/17/18 08:35 Ethambutol HCl (Myambutol) 800 mg DAILY ORAL 05/03/18 09:00 05/27/18 08:59 05/17/18 08:35 Hydralazine HCl (Apresoline) 10 mg Q4H PRN IV SBP >160 05/02/18 18:18 05/28/18 18:17 05/17/18 08:36 Isoniazid (Inh) 300 mg DAILY ORAL 05/03/18 09:00 05/27/18 08:59 05/17/18 08:36 Lansoprazole (Prevacid) 30 mg Q12HR ORAL 05/05/18 21:00 06/04/18 20:59 05/17/18 08:36 Levetiracetam 750 mg/Dextrose 102.5 ml @ 440 mls/hr Q12HR IV 05/02/18 21:00 05/29/18 00:59 05/17/18 09:09 Meropenem 500 mg/ Sodium Chloride 55 ml @ 110 mls/hr EVERY 8 HOURS IVPB 05/16/18 14:00 05/21/18 13:59 05/17/18 06:00 Metoprolol Tartrate (Lopressor) 25 mg Q12HR GT 05/17/18 09:00 06/16/18 08:59 Multivitamins Therapeutic (Therapeutic Multivitamin) 1 ea DAILY ORAL 05/03/18 09:00 05/27/18 08:59 05/17/18 08:36 Ondansetron HCl (Zofran) 4 mg Q6H PRN IVP Nausea & Vomiting 05/02/18 18:19 05/28/18 18:18 Pyrazinamide (Pza) 1,000 mg DAILY ORAL 05/03/18 09:00 05/28/18 08:59 05/17/18 08:35 Pyridoxine HCl (Vitamin B6) 50 mg DAILY ORAL 05/03/18 09:00 05/27/18 08:59 05/17/18 08:35 Rifampin (Rifadin) 600 mg DAILY ORAL 05/03/18 09:00 05/27/18 08:59 05/17/18 08:36 Sennosides (Senokot) 2 tab BIDPRN PRN GT Constipation 05/02/18 18:20 05/27/18 18:19 05/14/18 16:27 Sorbitol (Sorbitol) 30 ml Q6H PRN GT Constipation 05/14/18 19:00 06/13/18 18:59 Tamsulosin HCl (Flomax) 0.4 mg BEDTIME ORAL 05/02/18 21:00 05/27/18 20:59 05/16/18 20:09 Vancomycin HCl (Vanco rx to dose) 1 ea DAILY PRN MISC Per rx protocol 05/15/18 14:00 06/14/18 13:59 Vancomycin HCl 1 gm/Dextrose 275 ml @ 183.708 mls/hr Q12H IVPB 05/17/18 17:00 05/22/18 16:59 Nakul Cisse MD May 17, 2018 09:16
[2018-05-17 11:33] VITALS: BP 134/69
--- NOTE | 2018-05-17 13:39 | Neurology Progress Note ---
Interim History Interim History Interim History Mr. Narvaez was sleeping when I went to see him. He could be aroused easily with vocal stimuli. When aroused, his eyes were open and he made consistent eye contact. When asked if he felt better he nodded yes. He turned his eyes and head towards the side of vocal stimulation. He blinked to threat. He was non verbal. He continues to be seizure-free. He continues to be non-functional. His cardio-respiratory function is stable. Review of Systems Neuro Review of Systems Unable to obtain. Objective Physical Exam Last Vital Signs Date Time Temp Pulse Resp B/P (MAP) Pulse Ox O2 Delivery O2 Flow Rate FiO2 05/17/18 12:41 100 05/17/18 12:41 82 35 30 05/17/18 12:00 Mechanical Ventilator 05/17/18 11:33 98.3 134/69 (90) 98.3 05/10/18 20:00 6.0 Laboratory Tests Test 05/17/18 02:00 Vancomycin Level Trough 11.0 ug/mL (5.0-12.0) Neurologic Exam Objective PHYSICAL EXAMINATION: GENERAL: He is a well-developed, ill-looking black gentleman, lying in bed, in no acute distress. HEAD: Normocephalic and atraumatic. EENT: Examination benign. NECK: No neck rigidity was observed. NEUROLOGICAL EXAMINATION: MENTAL STATUS EXAMINATION: He could be aroused with vocal stimuli. When aroused, his eyes were open and he made consistent eye contact. He turned his eyes and head towards the side of vocal stimulation. He could not cooperate for further mental status testing. SPEECH: Could not be tested. LANGUAGE: Could not be tested. CRANIAL NERVE EXAMINATION: II: He did blink to threat. III, IV & : External ocular movements were present. The pupils were 3 mm in diameter, equal, round, regular, and reactive sluggishly to light. V & VII: The corneal reflexes were present bilaterally. However, the right- sided reflex was significantly diminished compared to the left. VIII: He did not respond to sounds and had no nystagmus. IX & X: Gag reflex was suppressed. XI: The sternocleidomastoids and trapezii functioned minimally. XII: The tongue was in the midline. MOTOR SYSTEM: The tone was increased in all four extremities with spasticity more marked on the right than on the left. Examination of muscle mass revealed generalized muscle wasting, again more marked on the right than on the left. Examination of power was impossible to perform. He did move all four extremities on command with possibly right greater than left-sided weakness. SENSORY EXAMINATION: He responded appropriately to deep pain with less vigorous responses on the right side compared to the left. REFLEXES: Trace+ and bilaterally symmetrical at the biceps, triceps, brachioradialis. 0 at both knees and ankles. The plantar responses were extensor bilaterally. COORDINATION, STANCE & GAIT: Could not be tested. Impression/Recommendations Diagnostic Impression 1. Mr. Sagar Narvaez is a 72-year-old, Armenian gentleman, of unknown handedness, who does have a past history of cerebrovascular disease with a prior stroke, pulmonary tuberculosis, chronic respiratory failure for which he has tracheostomy, and dysphagia for which he has a gastrostomy; who lives in correction where he was noted to have an alteration in his mental state in the form of increased lethargy. He was thus brought into the [facility] emergency room and following admission, he apparently spiked a fever to 103 degrees Fahrenheit followed by multiple seizures. He was cooled down, given Ativan and started on Keppra and has been seizure-free since then. 2. He was was sleeping when I went to see him. He could be aroused easily with vocal stimuli. When aroused, his eyes were open and he made consistent eye contact. When asked if he felt better he nodded yes. He turned his eyes and head towards the side of vocal stimulation. He blinked to threat. He was non verbal. He continues to be seizure-free. He continues to be non-functional. His cardio-respiratory function is stable. 3. On neurological examination, at this time, he can be aroused. He makes eye contact. He does blink to threat. He is non verbal. His corneal reflex is diminished on the right side compared to the left. 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 In addition, he responds to deep pain, less on the right than on the left. His deep tendon reflexes are globally diminished and his plantar responses are extensor bilaterally. 4. Laboratory data on my initial evaluation revealed that his WBC count is creeping up from 4.4 to 9.5. He is significantly anemic with a hemoglobin of 8.8 G. His chemistry panel reveals that his bilirubin is elevated to 1.1. His alkaline phosphatase is elevated to 367, his AST is elevated to 52. His albumin is low at 1.9. His arterial blood gas reveals a pCO2 of 29 and a pO2 of 59 with a pH of 7.43. His urinalysis reveals 2+ leukocyte esterase with 2-4 RBCs and 2-4 WBCs per high-power field. 5. The EEG done on 04/27/18 revealed a moderately severe encephalopathy and left > right hemispheric dysfunction. No inter-ictal discharges were seen. 6. The CT of the brain done on 04/30/18 revealed multiple old bilateral cerebral infarcts involving the left > right brain. 7. 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 8. His mental state is still waxing and waning. He is less encephalopathic today. Recommendations 1. Continue present management. 2. Continue Keppra 750 mg q.12 hours. 3. Agree with plan to transfer to [facility]. Mercedes Coelho M.D., M.S.P.H. MERCEDES COELHO May 17, 2018 13:39
[2018-05-17 15:44] VITALS: BP 137/77
[2018-05-17] MEDS: Vancomycin 1gm in D5W 275ml IVPB SCH (16:20)
[2018-05-17 20:00] VITALS: BP 141/72
[2018-05-17] MEDS: Tamsulosin 0.4mg cap ORAL SCH (20:52)
[2018-05-17] MEDS: Dyna-Hex 2% Top Sol 2oz TOPIC SCH (20:52)
--- NOTE | 2018-05-17 21:32 | Progress Note ---
DATE: 05/17/2018 CARDIOLOGY PROGRESS NOTE SUBJECTIVE: The patient remains on ventilator support via trach. No new events noted. Tolerating feedings. OBJECTIVE: Blood pressure 161/79, pulse 55, respirations 22, afebrile. LUNGS: With coarse breath sounds and rhonchi. CARDIAC: Regular rhythm. Slow rate. Normal S1, S2 with no murmur. Monitor sinus and sinus bradycardia. ABDOMEN: Soft. G-tube intact. EXTREMITIES: No edema. IMPRESSION: 1. Respiratory failure. 2. Pulmonary tuberculosis. 3. Sinus bradycardia on beta-blockers. 4. Hypoxia secondary to pulmonary disease. 5. Recovered sepsis with shock. 6. Hypertensive heart disease with rising blood pressure trend. PLAN: 1. Beta-cr dose was decreased yesterday. We will monitor response. 2. Advance antihypertensive. 3. Continue ventilator support and antimicrobials. 4. No anti-platelet therapy due to GI bleeding risk. 5. Statin drug for LDL goal less than 100. 6. DVT prophylaxis. Jones Arauz M.D. DR: JEVON JOB#: [id number] CC:
[2018-05-18 00:09] VITALS: BP 146/76
[2018-05-18 04:00] VITALS: BP 161/96
[2018-05-18] MEDS: Vancomycin 1gm in D5W 275ml IVPB SCH ×2 (05:37→17:10)
[2018-05-18] MEDS: Meropenem 500 MG in NS 55 ML IVPB SCH ×3 (06:38→22:14)
--- NOTE | 2018-05-18 07:47 | Pulmonology Progress Note ---
Assessment/Plan Assessment/Plan IMPRESSION respiratory failure, vent dependent possible sepsis chronic encephalopathy trach debility hypoxemia htn metabolic acidosis ho hypertension ho seizures abnormal imaging PLAN reviewed care and same stable and chronically ill on AC- unable to wean vent dependent and fully supported elevate head and monitor monitor ABG PRN suction PRN dc planning to jonh oxygen as needed and monitor monitor hemodynamics and adjust prognosis poor fully dependent on vent at present medications/laboratory data/nursing notes reviewed in detail note reviewed and edited care discussed with RN and RT Subjective ROS Limited/Unobtainable: Yes Allergies: Coded Allergies: No Known Allergies (Unverified , 01/27/17) Subjective care reviewed on vent full support doing poorly and unable to wean Objective Last 24 Hour Vital Signs Date Time Temp Pulse Resp B/P (MAP) Pulse Ox O2 Delivery O2 Flow Rate FiO2 05/18/18 07:00 64 22 30 05/18/18 04:56 73 24 30 05/18/18 04:00 74 05/18/18 04:00 Mechanical Ventilator 05/18/18 04:00 97.7 80 20 161/96 (117) 100 97.7 05/18/18 02:34 75 22 30 05/18/18 01:00 69 22 30 05/18/18 00:09 97.0 66 18 146/76 (99) 100 97.0 05/18/18 00:05 Mechanical Ventilator 05/18/18 00:05 30 05/18/18 00:00 67 05/17/18 22:57 77 23 30 05/17/18 21:02 83 23 30 05/17/18 20:54 79 141/72 05/17/18 20:00 30 05/17/18 20:00 Mechanical Ventilator 05/17/18 20:00 75 05/17/18 20:00 97.9 79 18 141/72 (95) 100 97.9 05/17/18 18:50 78 26 30 05/17/18 18:44 79 137/77 05/17/18 17:20 79 25 30 05/17/18 16:00 80 05/17/18 16:00 30 05/17/18 16:00 Mechanical Ventilator 05/17/18 15:44 97.9 83 25 137/77 (97) 100 97.9 05/17/18 15:03 81 24 30 05/17/18 12:41 100 05/17/18 12:41 82 35 30 10/13/18 12:00 88 05/17/18 12:00 Mechanical Ventilator 05/17/18 12:00 30 05/17/18 11:33 98.3 83 27 134/69 (90) 100 98.3 05/17/18 11:00 83 26 30 05/17/18 08:38 57 23 30 05/17/18 08:36 161/79 05/17/18 08:35 55 161/79 05/17/18 08:00 58 05/17/18 08:00 Mechanical Ventilator 05/17/18 08:00 30 05/17/18 07:51 97.6 55 22 161/79 (106) 100 97.6 Intake and Output 05/17/18 05/18/18 19:00 07:00 Intake Total 1412.500 ml 1387.5 ml Output Total 1000 ml 1000 ml Balance 412.500 ml 387.5 ml Free Water 260 ml 240 ml IV Total 432.500 ml 487.5 ml Tube Feeding 720 ml 660 ml Output Urine Total 1000 ml 1000 ml # Bowel Movements 2 6 Objective WDWN NAD poorly responsive moderate breath sounds bilaterally with scattered rhonchi [id number] without MRG NABS nontender no HSM; gt no CCE cachectic as is poor response to pain skin noted comfortable but obtunded reviewed and edited Microbiology Date/Time Source Procedure Growth Status 05/15/18 17:20 Sputum Gram Stain - Final Resulted 05/15/18 17:20 Sputum Culture - Preliminary Gram Negative Gildardo Resulted Current Medications Medications (Trade) Dose Ordered Sig/Iram Route PRN Reason Start Time Stop Time Status Last Admin Dose Admin Acetaminophen (Tylenol) 650 mg Q4H PRN ORAL Fever/Headache/Mild Pain 05/02/18 18:30 05/26/18 18:29 05/14/18 05:26 Amlodipine Besylate (Norvasc) 2.5 mg DAILY GT 05/17/18 18:30 06/16/18 18:29 05/17/18 18:44 Artificial Tears (Akwa-Tears) 2 drop FIVE TIMES A DAY PRN BOTH EYES Dry Eyes 05/02/18 19:00 05/31/18 11:44 05/06/18 08:32 Ascorbic Acid (Vitamin C) 250 mg DAILY ORAL 05/11/18 09:00 11/6/18 08:59 05/17/18 08:35 Atorvastatin Calcium (Lipitor) 10 mg BEDTIME GT 05/02/18 21:00 05/28/18 20:59 05/17/18 20:53 Chlorhexidine Gluconate (Letha-Hex 2%) 1 applic DAILY@2000 TOPIC 05/02/18 20:00 05/31/18 19:59 05/17/18 20:52 Clonidine HCl (Catapres Tab) 0.1 mg Q4H PRN ORAL SBP >160 05/02/18 19:00 05/28/18 10:59 05/14/18 16:27 Docusate Sodium (Colace) 100 mg DAILY ORAL 05/03/18 09:00 05/27/18 08:59 05/17/18 08:35 Ethambutol HCl (Myambutol) 800 mg DAILY ORAL 05/03/18 09:00 05/27/18 08:59 05/17/18 08:35 Hydralazine HCl (Apresoline) 10 mg Q4H PRN IV SBP >160 05/02/18 18:18 05/28/18 18:17 05/17/18 08:36 Isoniazid (Inh) 300 mg DAILY ORAL 05/03/18 09:00 05/27/18 08:59 05/17/18 08:36 Lansoprazole (Prevacid) 30 mg Q12HR ORAL 05/05/18 21:00 06/04/18 20:59 05/17/18 20:53 Levetiracetam 750 mg/Dextrose 102.5 ml @ 440 mls/hr Q12HR IV 05/02/18 21:00 05/29/18 00:59 05/17/18 21:09 Meropenem 500 mg/ Sodium Chloride 55 ml @ 110 mls/hr EVERY 8 HOURS IVPB 05/16/18 14:00 05/21/18 13:59 05/18/18 06:38 Metoprolol Tartrate (Lopressor) 25 mg Q12HR GT 05/17/18 09:00 06/16/18 08:59 05/17/18 20:54 Multivitamins Therapeutic (Therapeutic Multivitamin) 1 ea DAILY ORAL 05/03/18 09:00 05/27/18 08:59 05/17/18 08:36 Ondansetron HCl (Zofran) 4 mg Q6H PRN IVP Nausea & Vomiting 05/02/18 18:19 05/28/18 18:18 Pyrazinamide (Pza) 1,000 mg DAILY ORAL 05/03/18 09:00 05/28/18 08:59 05/17/18 08:35 Pyridoxine HCl (Vitamin B6) 50 mg DAILY ORAL 05/03/18 09:00 05/27/18 08:59 05/17/18 08:35 Rifampin (Rifadin) 600 mg DAILY ORAL 05/03/18 09:00 05/27/18 08:59 05/17/18 08:36 Sennosides (Senokot) 2 tab BIDPRN PRN GT Constipation 05/02/18 18:20 05/27/18 18:19 05/14/18 16:27 Sorbitol (Sorbitol) 30 ml Q6H PRN GT Constipation 05/14/18 19:00 06/13/18 18:59 Tamsulosin HCl (Flomax) 0.4 mg BEDTIME ORAL 05/02/18 21:00 05/27/18 20:59 05/17/18 20:52 Vancomycin HCl (Vanco rx to dose) 1 ea DAILY PRN MISC Per rx protocol 05/15/18 14:00 06/14/18 13:59 Vancomycin HCl 1 gm/Dextrose 275 ml @ 183.708 mls/hr Q12H IVPB 05/17/18 17:00 05/22/18 16:59 05/18/18 05:37 Nakul Cisse MD May 18, 2018 07:47
[2018-05-18 08:00] VITALS: BP 151/78
--- NOTE | 2018-05-18 08:25 | General Progress Note ---
Assessment/Plan Problem List: (1) Status epilepticus ICD Codes: G40.901 - Epilepsy, unspecified, not intractable, with status epilepticus SNOMED: 362733309 (2) Encephalopathy acute ICD Codes: G93.40 - Encephalopathy, unspecified SNOMED: 34854884, 208026525 (3) Probable sepsis ICD Codes: A41.9 - Sepsis, unspecified organism SNOMED: 281805431 (4) Dementia ICD Codes: F03.90 - Unspecified dementia without behavioral disturbance SNOMED: 45482319 (5) Encephalopathy ICD Codes: G93.40 - Encephalopathy, unspecified SNOMED: 29435827 (6) Sepsis ICD Codes: A41.9 - Sepsis, unspecified organism SNOMED: 05554990 (7) Pulmonary tuberculosis ICD Codes: A15.0 - Tuberculosis of lung SNOMED: 128952857 (8) Dehydration ICD Codes: E86.0 - Dehydration SNOMED: 00329903 (9) Altered level of consciousness ICD Codes: R40.4 - Transient alteration of awareness SNOMED: 8974352 Status: stable, progressing Assessment/Plan vent support wean as able gt feeds wound care sz rx wound care dc planning to jonh when bed available Subjective ROS Limited/Unobtainable: Yes Constitutional: Reports: malaise, weakness HEENT: Reports: no symptoms Cardiovascular: Reports: no symptoms Respiratory: Reports: cough, shortness of breath, sputum Gastrointestinal/Abdominal: Reports: difficulty swallowing Genitourinary: Reports: no symptoms Neurologic/Psychiatric: Reports: pre-existing deficit, seizure Endocrine: Reports: no symptoms Hematologic/Lymphatic: Reports: no symptoms Allergies: Coded Allergies: No Known Allergies (Unverified , 01/27/17) All Systems: reviewed and negative except above Subjective no events. stable on the vent. no beds at jonh. tolerating feeds. no fever or chills. Objective Last 24 Hour Vital Signs Date Time Temp Pulse Resp B/P (MAP) Pulse Ox O2 Delivery O2 Flow Rate FiO2 05/18/18 08:00 Mechanical Ventilator 05/18/18 08:00 30 05/18/18 07:00 64 22 30 05/18/18 04:56 73 24 30 05/18/18 04:00 74 05/18/18 04:00 Mechanical Ventilator 05/18/18 04:00 97.7 80 20 161/96 (117) 100 97.7 10/14/18 02:34 75 22 30 05/18/18 01:00 69 22 30 05/18/18 00:09 97.0 66 18 146/76 (99) 100 97.0 05/18/18 00:05 Mechanical Ventilator 05/18/18 00:05 30 05/18/18 00:00 67 05/17/18 22:57 77 23 30 05/17/18 21:02 83 23 30 05/17/18 20:54 79 141/72 05/17/18 20:00 30 05/17/18 20:00 Mechanical Ventilator 05/17/18 20:00 75 05/17/18 20:00 97.9 79 18 141/72 (95) 100 97.9 05/17/18 18:50 78 26 30 05/17/18 18:44 79 137/77 05/17/18 17:20 79 25 30 05/17/18 16:00 80 05/17/18 16:00 30 05/17/18 16:00 Mechanical Ventilator 05/17/18 15:44 97.9 83 25 137/77 (97) 100 97.9 05/17/18 15:03 81 24 30 05/17/18 12:41 100 05/17/18 12:41 82 35 30 05/17/18 12:00 88 05/17/18 12:00 Mechanical Ventilator 05/17/18 12:00 30 05/17/18 11:33 98.3 83 27 134/69 (90) 100 98.3 05/17/18 11:00 83 26 30 05/17/18 08:38 57 23 30 05/17/18 08:36 161/79 05/17/18 08:35 55 161/79 Intake and Output 05/17/18 05/18/18 19:00 07:00 Intake Total 1412.500 ml 1387.5 ml Output Total 1000 ml 1000 ml Balance 412.500 ml 387.5 ml Free Water 260 ml 240 ml IV Total 432.500 ml 487.5 ml Tube Feeding 720 ml 660 ml Output Urine Total 1000 ml 1000 ml # Bowel Movements 2 6 Height (Feet): 5 Height (Inches): 7.00 Weight (Pounds): 162 Objective General Appearance: WD/WN, cachetic, thin Neck: supple Cardiovascular: tachycardia Respiratory/Chest: rhonchi - bilaterally Abdomen: normal bowel sounds, non tender, soft, no organomegaly Edema: no edema noted Arm (L), no edema noted Arm (R), no edema noted Leg (L), no edema noted Leg (R), no edema noted Pedal (L), no edema noted Pedal (R), no edema noted Generalized Jarrod Vásquez MD May 18, 2018 08:25
[2018-05-18] MEDS: Ascorbic Acid 500mg tab ORAL SCH (09:00)
[2018-05-18] MEDS: levETIRAcetam 750 MG in D5W 95 ML IV SCH ×2 (09:50→20:59)
--- NOTE | 2018-05-18 09:50 | Infectious Diseases Prog Note ---
Assessment/Plan Assessment/Plan A; Enterococcus sepsis Pneumonia with E. coli treated MDR Acinetobacter colonization E. coli UTI Pulmonary TB AMS VDRF VRE colozation history of CVA Gastritis P; Continue TB treatment with RIPE Discontinue PICC line Continue Vancomycin & Meropenem Subjective ROS Limited/Unobtainable: Yes Allergies: Coded Allergies: No Known Allergies (Unverified , 01/27/17) Objective Vital Signs Last 24 Hour Vital Signs Date Time Temp Pulse Resp B/P (MAP) Pulse Ox O2 Delivery O2 Flow Rate FiO2 05/18/18 08:44 67 24 30 05/18/18 08:00 Mechanical Ventilator 05/18/18 08:00 30 05/18/18 08:00 97.3 70 18 151/78 (102) 100 97.3 05/18/18 07:00 64 22 30 05/18/18 04:56 73 24 30 05/18/18 04:00 74 05/18/18 04:00 Mechanical Ventilator 05/18/18 04:00 97.7 80 20 161/96 (117) 100 97.7 05/18/18 02:34 75 22 30 05/18/18 01:00 69 22 30 05/18/18 00:09 97.0 66 18 146/76 (99) 100 97.0 05/18/18 00:05 Mechanical Ventilator 05/18/18 00:05 30 05/18/18 00:00 67 05/17/18 22:57 77 23 30 05/17/18 21:02 83 23 30 05/17/18 20:54 79 141/72 05/17/18 20:00 30 05/17/18 20:00 Mechanical Ventilator 05/17/18 20:00 75 05/17/18 20:00 97.9 79 18 141/72 (95) 100 97.9 05/17/18 18:50 78 26 30 05/17/18 18:44 79 137/77 05/17/18 17:20 79 25 30 05/17/18 16:00 80 05/17/18 16:00 30 05/17/18 16:00 Mechanical Ventilator 05/17/18 15:44 97.9 83 25 137/77 (97) 100 97.9 05/17/18 15:03 81 24 30 05/17/18 12:41 100 05/17/18 12:41 82 35 30 05/17/18 12:00 88 05/17/18 12:00 Mechanical Ventilator 05/17/18 12:00 30 05/17/18 11:33 98.3 83 27 134/69 (90) 100 98.3 05/17/18 11:00 83 26 30 Height (Feet): 5 Height (Inches): 7.00 Weight (Pounds): 162 HEENT: status post trach Respiratory/Chest: lungs clear, other - on ventilator Cardiovascular: normal rate, other - left arm PICC line Abdomen: soft, non tender, other - GT feeding Extremities: no edema Neurologic/Psychiatric: unresponsiveness Musculoskeletal: atrophy Microbiology Date/Time Source Procedure Growth Status 05/15/18 17:20 Sputum Gram Stain - Final Resulted 05/15/18 17:20 Sputum Culture - Preliminary A.baumanii Complx - Mdr Gram Negative Bacillus 2 Resulted Current Medications Medications (Trade) Dose Ordered Sig/Iram Route PRN Reason Start Time Stop Time Status Last Admin Dose Admin Acetaminophen (Tylenol) 650 mg Q4H PRN ORAL Fever/Headache/Mild Pain 05/02/18 18:30 05/26/18 18:29 05/14/18 05:26 Amlodipine Besylate (Norvasc) 2.5 mg DAILY GT 05/17/18 18:30 06/16/18 18:29 05/17/18 18:44 Artificial Tears (Akwa-Tears) 2 drop FIVE TIMES A DAY PRN BOTH EYES Dry Eyes 05/02/18 19:00 05/31/18 11:44 05/06/18 08:32 Ascorbic Acid (Vitamin C) 250 mg DAILY ORAL 05/11/18 09:00 06/10/18 08:59 05/17/18 08:35 Atorvastatin Calcium (Lipitor) 10 mg BEDTIME GT 05/02/18 21:00 05/28/18 20:59 05/17/18 20:53 Chlorhexidine Gluconate (Letha-Hex 2%) 1 applic DAILY@1999 TOPIC 05/02/18 20:00 05/31/18 19:59 05/17/18 20:52 Clonidine HCl (Catapres Tab) 0.1 mg Q4H PRN ORAL SBP >160 05/02/18 19:00 05/28/18 10:59 05/14/18 16:27 Docusate Sodium (Colace) 100 mg DAILY ORAL 05/03/18 09:00 05/27/18 08:59 05/17/18 08:35 Ethambutol HCl (Myambutol) 800 mg DAILY ORAL 05/03/18 09:00 05/27/18 08:59 05/17/18 08:35 Hydralazine HCl (Apresoline) 10 mg Q4H PRN IV SBP >160 05/02/18 18:18 05/28/18 18:17 05/17/18 08:36 Isoniazid (Inh) 300 mg DAILY ORAL 05/03/18 09:00 05/27/18 08:59 05/17/18 08:36 Lansoprazole (Prevacid) 30 mg Q12HR ORAL 05/05/18 21:00 06/04/18 20:59 05/17/18 20:53 Levetiracetam 750 mg/Dextrose 102.5 ml @ 440 mls/hr Q12HR IV 05/02/18 21:00 05/29/18 00:59 05/17/18 21:09 Meropenem 500 mg/ Sodium Chloride 55 ml @ 110 mls/hr EVERY 8 HOURS IVPB 05/16/18 14:00 05/21/18 13:59 05/18/18 06:38 Metoprolol Tartrate (Lopressor) 25 mg Q12HR GT 05/17/18 09:00 06/16/18 08:59 05/17/18 20:54 Multivitamins Therapeutic (Therapeutic Multivitamin) 1 ea DAILY ORAL 05/03/18 09:00 05/27/18 08:59 05/17/18 08:36 Ondansetron HCl (Zofran) 4 mg Q6H PRN IVP Nausea & Vomiting 05/02/18 18:19 05/28/18 18:18 Pyrazinamide (Pza) 1,000 mg DAILY ORAL 05/03/18 09:00 05/28/18 08:59 05/17/18 08:35 Pyridoxine HCl (Vitamin B6) 50 mg DAILY ORAL 05/03/18 09:00 05/27/18 08:59 05/17/18 08:35 Rifampin (Rifadin) 600 mg DAILY ORAL 05/03/18 09:00 05/27/18 08:59 05/17/18 08:36 Sennosides (Senokot) 2 tab BIDPRN PRN GT Constipation 05/02/18 18:20 05/27/18 18:19 05/14/18 16:27 Sorbitol (Sorbitol) 30 ml Q6H PRN GT Constipation 05/14/18 19:00 06/13/18 18:59 Tamsulosin HCl (Flomax) 0.4 mg BEDTIME ORAL 05/02/18 21:00 05/27/18 20:59 05/17/18 20:52 Vancomycin HCl (Vanco rx to dose) 1 ea DAILY PRN MISC Per rx protocol 05/15/18 14:00 06/14/18 13:59 Vancomycin HCl 1 gm/Dextrose 275 ml @ 183.708 mls/hr Q12H IVPB 05/17/18 17:00 05/22/18 16:59 05/18/18 05:37 Rahul Shen MD May 18, 2018 09:50
[2018-05-18] MEDS: Multivitamin w/Minerals tab ORAL SCH (09:51)
[2018-05-18] MEDS: Isoniazid 300mg tab ORAL SCH (09:51)
[2018-05-18] MEDS: Pyridoxine 50mg tab ORAL SCH (09:51)
[2018-05-18] MEDS: Metoprolol Tartrate 50mg tab GT SCH ×2 (09:53→20:59)
[2018-05-18] MEDS: Docusate 100mg/10ml Liq ORAL SCH (09:53)
[2018-05-18 12:00] VITALS: BP 156/77
--- NOTE | 2018-05-18 13:16 | Neurology Progress Note ---
Interim History Interim History Interim History Mr. Narvaez was sleeping when I went to see him. He could be aroused easily with vocal stimuli. When aroused, his eyes were open and he made consistent eye contact. He was not interactive. He turned his eyes and head towards the side of vocal stimulation. He blinked to threat. He was non verbal. He continues to be seizure-free. He continues to be non-functional. His cardio-respiratory function is stable. Review of Systems Neuro Review of Systems Unable to obtain. Objective Physical Exam Last Vital Signs Date Time Temp Pulse Resp B/P (MAP) Pulse Ox O2 Delivery O2 Flow Rate FiO2 05/18/18 12:45 60 25 30 05/18/18 12:00 Mechanical Ventilator 05/18/18 12:00 97.5 156/77 (103) 100 97.5 05/10/18 20:00 6.0 Neurologic Exam Objective PHYSICAL EXAMINATION: GENERAL: He is a well-developed, ill-looking black gentleman, lying in bed, in no acute distress. HEAD: Normocephalic and atraumatic. EENT: Examination benign. NECK: No neck rigidity was observed. NEUROLOGICAL EXAMINATION: MENTAL STATUS EXAMINATION: He could be aroused with vocal stimuli. When aroused, his eyes were open and he made consistent eye contact. He turned his eyes and head towards the side of vocal stimulation. He could not cooperate for further mental status testing. SPEECH: Could not be tested. LANGUAGE: Could not be tested. CRANIAL NERVE EXAMINATION: II: He did blink to threat. III, IV & : External ocular movements were present. The pupils were 3 mm in diameter, equal, round, regular, and reactive sluggishly to light. V & VII: The corneal reflexes were present bilaterally. However, the right- sided reflex was significantly diminished compared to the left. VIII: He did not respond to sounds and had no nystagmus. IX & X: Gag reflex was suppressed. XI: The sternocleidomastoids and trapezii functioned minimally. XII: The tongue was in the midline. MOTOR SYSTEM: The tone was increased in all four extremities with spasticity more marked on the right than on the left. Examination of muscle mass revealed generalized muscle wasting, again more marked on the right than on the left. Examination of power was impossible to perform. He did move all four extremities on command with possibly right greater than left-sided weakness. SENSORY EXAMINATION: He responded appropriately to deep pain with less vigorous responses on the right side compared to the left. REFLEXES: Trace+ and bilaterally symmetrical at the biceps, triceps, brachioradialis. 0 at both knees and ankles. The plantar responses were extensor bilaterally. COORDINATION, STANCE & GAIT: Could not be tested. Impression/Recommendations Diagnostic Impression 1. Mr. Sagar Narvaez is a 72-year-old, [place]alese gentleman, of unknown handedness, who does have a past history of cerebrovascular disease with a prior stroke, pulmonary tuberculosis, chronic respiratory failure for which he has tracheostomy, and dysphagia for which he has a gastrostomy; who lives in long term where he was noted to have an alteration in his mental state in the form of increased lethargy. He was thus brought into the [facility] emergency room and following admission, he apparently spiked a fever to 103 degrees Fahrenheit followed by multiple seizures. He was cooled down, given Ativan and started on Keppra and has been seizure-free since then. 2. He was was sleeping when I went to see him. He could be aroused easily with vocal stimuli. When aroused, his eyes were open and he made consistent eye contact. He was not interactive. He turned his eyes and head towards the side of vocal stimulation. He blinked to threat. He was non verbal. He continues to be seizure-free. He continues to be non-functional. His cardio-respiratory function is stable. 3. On neurological examination, at this time, he can be aroused. He makes eye contact. He does blink to threat. He is non verbal. His corneal reflex is diminished on the right side compared to the left. 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 In addition, he responds to deep pain, less on the right than on the left. His deep tendon reflexes are globally diminished and his plantar responses are extensor bilaterally. 4. Laboratory data on my initial evaluation revealed that his WBC count is creeping up from 4.4 to 9.5. He is significantly anemic with a hemoglobin of 8.8 G. His chemistry panel reveals that his bilirubin is elevated to 1.1. His alkaline phosphatase is elevated to 367, his AST is elevated to 52. His albumin is low at 1.9. His arterial blood gas reveals a pCO2 of 29 and a pO2 of 59 with a pH of 7.43. His urinalysis reveals 2+ leukocyte esterase with 2-4 RBCs and 2-4 WBCs per high-power field. 5. The EEG done on 04/27/18 revealed a moderately severe encephalopathy and left > right hemispheric dysfunction. No inter-ictal discharges were seen. 6. The CT of the brain done on 04/30/18 revealed multiple old bilateral cerebral infarcts involving the left > right brain. 7. 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 8. His mental state is still waxing and waning. He is minimally more encephalopathic today. Recommendations 1. Continue present management. 2. Continue Keppra 750 mg q.12 hours. 3. Agree with plan to transfer to SNF. Mercedes Coelho M.D., M.S.P.H. MERCED[facility] COELHO May 18, 2018 13:16
[2018-05-18 16:00] VITALS: BP 153/85
--- NOTE | 2018-05-18 16:15 | Progress Note ---
CARDIOLOGY PROGRESS NOTE DATE: 05/18/2018 SUBJECTIVE: Condition is largely unchanged. The patient remains on ventilator support. Tolerating feedings. Secretions have decreased. Heart rate has stabilized with decreased dose of beta-cr. PHYSICAL EXAMINATION: VITAL SIGNS: Blood pressure 151/78, pulse 67, and respiratory rate 21. LUNGS: With coarse breath sounds. HEART: Regular rhythm and rate. Normal S1, S2. ABDOMEN: Soft. G-tube intact. EXTREMITIES: Trace edema. IMPRESSION: Improving. PLAN: 1. Titrate antihypertensives. 2. Maintain current lowered beta-cr dosing. 3. Monitor volume status. 4. Presently no indication for diuresis. Jones Arauz M.D. DR: OLEG JOB#: [id number] CC:
[2018-05-18] MEDS ORDERED: NS 275ml ONE (18:38)
[2018-05-18 20:00] VITALS: BP 149/69
[2018-05-18] MEDS: Tamsulosin 0.4mg cap ORAL SCH (20:58)
[2018-05-19] VITALS: BP 147/72
[2018-05-19 04:00] VITALS: BP 138/74
[2018-05-19] MEDS: Vancomycin 1gm in D5W 275ml IVPB SCH ×2 (04:44→16:19)
[2018-05-19] MEDS: Meropenem 500 MG in NS 55 ML IVPB SCH ×3 (06:11→21:44)
[2018-05-19 07:48] VITALS: BP 153/80
[2018-05-19] MEDS: Metoprolol Tartrate 50mg tab GT SCH ×2 (08:24→21:00)
[2018-05-19] MEDS: Pyridoxine 50mg tab ORAL SCH (08:25)
[2018-05-19] MEDS: Isoniazid 300mg tab ORAL SCH (08:25)
[2018-05-19] MEDS: Multivitamin w/Minerals tab ORAL SCH (08:25)
[2018-05-19] MEDS: Ascorbic Acid 500mg tab ORAL SCH (08:25)
[2018-05-19] MEDS: Docusate 100mg/10ml Liq ORAL SCH (08:26)
[2018-05-19] MEDS: levETIRAcetam 750 MG in D5W 95 ML IV SCH ×2 (08:48→20:59)
--- NOTE | 2018-05-19 08:48 | Pulmonology Progress Note ---
Assessment/Plan Assessment/Plan IMPRESSION respiratory failure, vent dependent possible sepsis chronic encephalopathy trach debility hypoxemia htn metabolic acidosis ho hypertension ho seizures abnormal imaging PLAN vent as is stable and chronically ill on AC- unable to wean elevate head and monitor monitor ABG PRN suction PRN dc planning to jonh oxygen adequate monitor hemodynamics and adjust prognosis poor fully dependent on vent at present medications/laboratory data/nursing notes reviewed in detail note reviewed and edited care discussed with RN and RT Subjective ROS Limited/Unobtainable: Yes Allergies: Coded Allergies: No Known Allergies (Unverified , 01/27/17) Subjective care reviewed on vent full support doing poorly and without change Objective Last 24 Hour Vital Signs Date Time Temp Pulse Resp B/P (MAP) Pulse Ox O2 Delivery O2 Flow Rate FiO2 05/19/18 08:24 63 153/80 05/19/18 08:24 63 153/80 05/19/18 08:00 Mechanical Ventilator 05/19/18 08:00 30 05/19/18 07:48 98.7 63 23 153/80 (104) 100 98.7 05/19/18 07:00 62 18 30 05/19/18 05:19 56 17 30 05/19/18 04:00 Mechanical Ventilator 05/19/18 04:00 55 05/19/18 04:00 30 05/19/18 04:00 98.1 58 18 138/74 (95) 100 98.1 05/19/18 03:14 63 15 30 05/19/18 00:55 55 20 30 05/19/18 00:00 Mechanical Ventilator 05/19/18 00:00 97.6 58 16 147/72 (97) 100 97.6 05/19/18 00:00 30 05/18/18 23:28 56 05/18/18 22:34 59 24 30 05/18/18 20:59 63 149/69 05/18/18 20:51 61 21 30 05/18/18 20:00 30 05/18/18 20:00 Mechanical Ventilator 05/18/18 20:00 97.9 63 16 149/69 (95) 100 97.9 05/18/18 19:35 57 05/18/18 19:03 57 18 30 05/18/18 16:42 61 23 30 05/18/18 16:00 30 05/18/18 16:00 60 05/18/18 16:00 97.2 66 20 153/85 (107) 100 97.2 05/18/18 16:00 Mechanical Ventilator 05/18/18 15:28 63 22 30 05/18/18 12:45 60 25 30 05/18/18 12:30 58 05/18/18 12:00 30 05/18/18 12:00 Mechanical Ventilator 05/18/18 12:00 97.5 59 18 156/77 (103) 100 97.5 05/18/18 10:59 63 21 30 05/18/18 10:46 100 05/18/18 09:53 67 151/78 05/18/18 09:51 67 151/78 Intake and Output 05/18/18 05/19/18 19:00 07:00 Intake Total 1178.708 ml 1501.208 ml Output Total 1300 ml 1100 ml Balance -121.292 ml 401.208 ml Free Water 220 ml 30 ml IV Total 238.708 ml 671.208 ml Tube Feeding 720 ml 720 ml Other 80 ml Output Urine Total 1300 ml 1100 ml # Bowel Movements 4 Objective WDWN NAD poorly responsive moderate breath sounds bilaterally with some rhonchi [id number] without MRG NABS nontender no HSM; gt no CCE cachectic as is poor response to pain skin noted comfortable but obtunded reviewed and edited Laboratory Tests 05/19/18 04:14: Vancomycin Level Trough 17.4H Current Medications Medications (Trade) Dose Ordered Sig/Iram Route PRN Reason Start Time Stop Time Status Last Admin Dose Admin Acetaminophen (Tylenol) 650 mg Q4H PRN ORAL Fever/Headache/Mild Pain 05/02/18 18:30 05/26/18 18:29 05/14/18 05:26 Amlodipine Besylate (Norvasc) 5 mg DAILY GT 05/19/18 09:00 06/18/18 08:59 05/19/18 08:24 Artificial Tears (Akwa-Tears) 2 drop FIVE TIMES A DAY PRN BOTH EYES Dry Eyes 05/02/18 19:00 05/31/18 11:44 05/06/18 08:32 Ascorbic Acid (Vitamin C) 250 mg DAILY ORAL 05/11/18 09:00 06/10/18 08:59 05/19/18 08:25 Atorvastatin Calcium (Lipitor) 10 mg BEDTIME GT 05/02/18 21:00 05/28/18 20:59 05/18/18 20:58 Clonidine HCl (Catapres Tab) 0.1 mg Q4H PRN ORAL SBP >160 05/02/18 19:00 05/28/18 10:59 05/14/18 16:27 Docusate Sodium (Colace) 100 mg DAILY ORAL 05/03/18 09:00 05/27/18 08:59 05/19/18 08:26 Ethambutol HCl (Myambutol) 800 mg DAILY ORAL 05/03/18 09:00 05/27/18 08:59 05/19/18 08:25 Hydralazine HCl (Apresoline) 10 mg Q4H PRN IV SBP >160 05/02/18 18:18 05/28/18 18:17 05/17/18 08:36 Isoniazid (Inh) 300 mg DAILY ORAL 05/03/18 09:00 05/27/18 08:59 05/19/18 08:25 Lansoprazole (Prevacid) 30 mg Q12HR ORAL 05/05/18 21:00 06/04/18 20:59 05/19/18 08:24 Levetiracetam 750 mg/Dextrose 102.5 ml @ 440 mls/hr Q12HR IV 05/02/18 21:00 05/29/18 00:59 05/18/18 20:59 Meropenem 500 mg/ Sodium Chloride 55 ml @ 110 mls/hr EVERY 8 HOURS IVPB 05/16/18 14:00 05/21/18 13:59 05/19/18 06:11 Metoprolol Tartrate (Lopressor) 25 mg Q12HR GT 05/17/18 09:00 06/16/18 08:59 05/19/18 08:24 Multivitamins Therapeutic (Therapeutic Multivitamin) 1 ea DAILY ORAL 05/03/18 09:00 05/27/18 08:59 05/19/18 08:25 Ondansetron HCl (Zofran) 4 mg Q6H PRN IVP Nausea & Vomiting 05/02/18 18:19 05/28/18 18:18 Pyrazinamide (Pza) 1,000 mg DAILY ORAL 05/03/18 09:00 05/28/18 08:59 05/19/18 08:26 Pyridoxine HCl (Vitamin B6) 50 mg DAILY ORAL 05/03/18 09:00 05/27/18 08:59 05/19/18 08:25 Rifampin (Rifadin) 600 mg DAILY ORAL 05/03/18 09:00 05/27/18 08:59 05/19/18 08:24 Sennosides (Senokot) 2 tab BIDPRN PRN GT Constipation 05/02/18 18:20 05/27/18 18:19 05/14/18 16:27 Sorbitol (Sorbitol) 30 ml Q6H PRN GT Constipation 05/14/18 19:00 06/13/18 18:59 Tamsulosin HCl (Flomax) 0.4 mg BEDTIME ORAL 05/02/18 21:00 05/27/18 20:59 05/18/18 20:58 Vancomycin HCl (Vanco rx to dose) 1 ea DAILY PRN MISC Per rx protocol 05/15/18 14:00 06/14/18 13:59 Vancomycin HCl 1 gm/Dextrose 275 ml @ 183.708 mls/hr Q12H IVPB 05/17/18 17:00 05/22/18 16:59 05/19/18 04:44 Nakul Cisse MD May 19, 2018 08:48
--- NOTE | 2018-05-19 11:28 | Infectious Diseases Prog Note ---
Assessment/Plan Assessment/Plan A; Enterococcus sepsis Pneumonia with E. coli treated MDR Acinetobacter colonization E. coli UTI Pulmonary TB AMS VDRF VRE colozation history of CVA Gastritis P; Continue TB treatment with RIPE Continue Vancomycin & Meropenem Waiting for transfer to [place] Subjective ROS Limited/Unobtainable: Yes Cardiovascular: Reports: other - PICC line was removed Allergies: Coded Allergies: No Known Allergies (Unverified , 01/27/17) Objective Vital Signs Last 24 Hour Vital Signs Date Time Temp Pulse Resp B/P (MAP) Pulse Ox O2 Delivery O2 Flow Rate FiO2 05/19/18 09:44 58 20 30 05/19/18 09:38 63 33 30 05/19/18 08:24 63 153/80 05/19/18 08:24 63 153/80 05/19/18 08:00 60 05/19/18 08:00 Mechanical Ventilator 05/19/18 08:00 30 05/19/18 07:48 98.7 63 23 153/80 (104) 100 98.7 05/19/18 07:00 62 18 30 05/19/18 05:19 56 17 30 05/19/18 04:00 Mechanical Ventilator 05/19/18 04:00 55 05/19/18 04:00 30 05/19/18 04:00 98.1 58 18 138/74 (95) 100 98.1 05/19/18 03:14 63 15 30 05/19/18 00:55 55 20 30 05/19/18 00:00 Mechanical Ventilator 05/19/18 00:00 97.6 58 16 147/72 (97) 100 97.6 05/19/18 00:00 30 05/18/18 23:28 56 05/18/18 22:34 59 24 30 05/18/18 20:59 63 149/69 05/18/18 20:51 61 21 30 05/18/18 20:00 30 05/18/18 20:00 Mechanical Ventilator 05/18/18 20:00 97.9 63 16 149/69 (95) 100 97.9 05/18/18 19:35 57 05/18/18 19:03 57 18 30 05/18/18 16:42 61 23 30 05/18/18 16:00 30 05/18/18 16:00 60 05/18/18 16:00 97.2 66 20 153/85 (107) 100 97.2 05/18/18 16:00 Mechanical Ventilator 05/18/18 15:28 63 22 30 05/18/18 12:45 60 25 30 05/18/18 12:30 58 05/18/18 12:00 30 05/18/18 12:00 Mechanical Ventilator 05/18/18 12:00 97.5 59 18 156/77 (103) 100 97.5 Height (Feet): 5 Height (Inches): 7.00 Weight (Pounds): 161 General Appearance: no acute distress HEENT: status post trach Respiratory/Chest: other - on ventilaor, coarse sounds Cardiovascular: normal rate Abdomen: soft, non tender, other - GT feeding Neurologic/Psychiatric: unresponsiveness Laboratory Tests Test 05/19/18 04:14 Vancomycin Level Trough 17.4 ug/mL (5.0-12.0) H Current Medications Medications (Trade) Dose Ordered Sig/Iram Route PRN Reason Start Time Stop Time Status Last Admin Dose Admin Acetaminophen (Tylenol) 650 mg Q4H PRN ORAL Fever/Headache/Mild Pain 05/02/18 18:30 05/26/18 18:29 05/14/18 05:26 Amlodipine Besylate (Norvasc) 5 mg DAILY GT 05/19/18 09:00 06/18/18 08:59 05/19/18 08:24 Artificial Tears (Akwa-Tears) 2 drop FIVE TIMES A DAY PRN BOTH EYES Dry Eyes 05/02/18 19:00 05/31/18 11:44 05/06/18 08:32 Ascorbic Acid (Vitamin C) 250 mg DAILY ORAL 05/11/18 09:00 06/10/18 08:59 05/19/18 08:25 Atorvastatin Calcium (Lipitor) 10 mg BEDTIME GT 05/02/18 21:00 05/28/18 20:59 05/18/18 20:58 Clonidine HCl (Catapres Tab) 0.1 mg Q4H PRN ORAL SBP >160 05/02/18 19:00 05/28/18 10:59 05/14/18 16:27 Docusate Sodium (Colace) 100 mg DAILY ORAL 05/03/18 09:00 05/27/18 08:59 05/19/18 08:26 Ethambutol HCl (Myambutol) 800 mg DAILY ORAL 05/03/18 09:00 05/27/18 08:59 05/19/18 08:25 Hydralazine HCl (Apresoline) 10 mg Q4H PRN IV SBP >160 05/02/18 18:18 05/28/18 18:17 05/17/18 08:36 Isoniazid (Inh) 300 mg DAILY ORAL 05/03/18 09:00 05/27/18 08:59 05/19/18 08:25 Lansoprazole (Prevacid) 30 mg Q12HR ORAL 05/05/18 21:00 06/04/18 20:59 05/19/18 08:24 Levetiracetam 750 mg/Dextrose 102.5 ml @ 440 mls/hr Q12HR IV 05/02/18 21:00 05/29/18 00:59 05/19/18 08:48 Meropenem 500 mg/ Sodium Chloride 55 ml @ 110 mls/hr EVERY 8 HOURS IVPB 05/16/18 14:00 05/21/18 13:59 05/19/18 06:11 Metoprolol Tartrate (Lopressor) 25 mg Q12HR GT 05/17/18 09:00 06/16/18 08:59 05/19/18 08:24 Multivitamins Therapeutic (Therapeutic Multivitamin) 1 ea DAILY ORAL 05/03/18 09:00 05/27/18 08:59 05/19/18 08:25 Ondansetron HCl (Zofran) 4 mg Q6H PRN IVP Nausea & Vomiting 05/02/18 18:19 05/28/18 18:18 Pyrazinamide (Pza) 1,000 mg DAILY ORAL 05/03/18 09:00 05/28/18 08:59 05/19/18 08:26 Pyridoxine HCl (Vitamin B6) 50 mg DAILY ORAL 05/03/18 09:00 05/27/18 08:59 05/19/18 08:25 Rifampin (Rifadin) 600 mg DAILY ORAL 05/03/18 09:00 05/27/18 08:59 05/19/18 08:24 Sennosides (Senokot) 2 tab BIDPRN PRN GT Constipation 05/02/18 18:20 05/27/18 18:19 05/14/18 16:27 Sorbitol (Sorbitol) 30 ml Q6H PRN GT Constipation 05/14/18 19:00 06/13/18 18:59 Tamsulosin HCl (Flomax) 0.4 mg BEDTIME ORAL 05/02/18 21:00 05/27/18 20:59 05/18/18 20:58 Vancomycin HCl (Vanco rx to dose) 1 ea DAILY PRN MISC Per rx protocol 05/15/18 14:00 06/14/18 13:59 Vancomycin HCl 1 gm/Dextrose 275 ml @ 183.708 mls/hr Q12H IVPB 05/17/18 17:00 05/22/18 16:59 05/19/18 04:44 Rahul Shen MD May 19, 2018 11:28
[2018-05-19 11:40] VITALS: BP 154/83
--- NOTE | 2018-05-19 12:37 | General Progress Note ---
Assessment/Plan Problem List: (1) Status epilepticus ICD Codes: G40.901 - Epilepsy, unspecified, not intractable, with status epilepticus SNOMED: 154101209 (2) Encephalopathy acute ICD Codes: G93.40 - Encephalopathy, unspecified SNOMED: 07539980, 184624500 (3) Probable sepsis ICD Codes: A41.9 - Sepsis, unspecified organism SNOMED: 125454022 (4) Dementia ICD Codes: F03.90 - Unspecified dementia without behavioral disturbance SNOMED: 00253274 (5) Encephalopathy ICD Codes: G93.40 - Encephalopathy, unspecified SNOMED: 61925692 (6) Sepsis ICD Codes: A41.9 - Sepsis, unspecified organism SNOMED: 87025657 (7) Pulmonary tuberculosis ICD Codes: A15.0 - Tuberculosis of lung SNOMED: 594055466 (8) Dehydration ICD Codes: E86.0 - Dehydration SNOMED: 94973685 (9) Altered level of consciousness ICD Codes: R40.4 - Transient alteration of awareness SNOMED: 3933190 Assessment/Plan vent support wean as able gt feeds wound care sz rx wound care dc planning to [facility] when bed available Subjective ROS Limited/Unobtainable: Yes Constitutional: Reports: malaise, weakness HEENT: Reports: no symptoms Cardiovascular: Reports: no symptoms Respiratory: Reports: shortness of breath Gastrointestinal/Abdominal: Reports: difficulty swallowing Genitourinary: Reports: no symptoms Neurologic/Psychiatric: Reports: pre-existing deficit, seizure Endocrine: Reports: no symptoms Hematologic/Lymphatic: Reports: no symptoms Allergies: Coded Allergies: No Known Allergies (Unverified , 01/27/17) All Systems: reviewed and negative except above Subjective no events. stable on the vent. no beds at [facility]. tolerating feeds. no fever or chills. Objective Last 24 Hour Vital Signs Date Time Temp Pulse Resp B/P (MAP) Pulse Ox O2 Delivery O2 Flow Rate FiO2 05/19/18 11:40 97.8 61 14 154/83 (106) 100 97.8 05/19/18 11:13 100 05/19/18 11:13 62 19 30 05/19/18 09:44 58 20 30 05/19/18 09:38 63 33 30 05/19/18 08:24 63 153/80 05/19/18 08:24 63 153/80 05/19/18 08:00 60 05/19/18 08:00 Mechanical Ventilator 05/19/18 08:00 30 05/19/18 07:48 98.7 63 23 153/80 (104) 100 98.7 05/19/18 07:00 62 18 30 05/19/18 05:19 56 17 30 05/19/18 04:00 Mechanical Ventilator 05/19/18 04:00 55 05/19/18 04:00 30 05/19/18 04:00 98.1 58 18 138/74 (95) 100 98.1 05/19/18 03:14 63 15 30 05/19/18 00:55 55 20 30 05/19/18 00:00 Mechanical Ventilator 05/19/18 00:00 97.6 58 16 147/72 (97) 100 97.6 05/19/18 00:00 30 05/18/18 23:28 56 05/18/18 22:34 59 24 30 05/18/18 20:59 63 149/69 05/18/18 20:51 61 21 30 05/18/18 20:00 30 05/18/18 20:00 Mechanical Ventilator 05/18/18 20:00 97.9 63 16 149/69 (95) 100 97.9 05/18/18 19:35 57 05/18/18 19:03 57 18 30 05/18/18 16:42 61 23 30 05/18/18 16:00 30 05/18/18 16:00 60 05/18/18 16:00 97.2 66 20 153/85 (107) 100 97.2 05/18/18 16:00 Mechanical Ventilator 05/18/18 15:28 63 22 30 05/18/18 12:45 60 25 30 Intake and Output 05/18/18 05/19/18 19:00 07:00 Intake Total 1178.708 ml 1501.208 ml Output Total 1300 ml 1100 ml Balance -121.292 ml 401.208 ml Free Water 220 ml 30 ml IV Total 238.708 ml 671.208 ml Tube Feeding 720 ml 720 ml Other 80 ml Output Urine Total 1300 ml 1100 ml # Bowel Movements 4 Laboratory Tests 05/19/18 04:14: Vancomycin Level Trough 17.4H Height (Feet): 5 Height (Inches): 7.00 Weight (Pounds): 161 Objective General Appearance: WD/WN, cachetic, thin Neck: supple Cardiovascular: tachycardia Respiratory/Chest: rhonchi - bilaterally Abdomen: normal bowel sounds, non tender, soft, no organomegaly Edema: no edema noted Arm (L), no edema noted Arm (R), no edema noted Leg (L), no edema noted Leg (R), no edema noted Pedal (L), no edema noted Pedal (R), no edema noted Generalized Jarrod Vásquez MD May 19, 2018 12:37
[2018-05-19 15:56] VITALS: BP 154/79
[2018-05-19 20:00] VITALS: BP 141/73
[2018-05-19] MEDS: Tamsulosin 0.4mg cap ORAL SCH (21:00)
--- NOTE | 2018-05-19 21:01 | Neurology Progress Note ---
Interim History Interim History Interim History Mr. Narvaez was sleeping when I went to see him. He could be aroused easily with vocal stimuli. When aroused, his eyes were open and he made consistent eye contact. When asked if he felt better he said "yes." He was not interactive otherwise. He turned his eyes and head towards the side of vocal stimulation. He blinked to threat. He continues to be seizure-free. He continues to be non-functional. His cardio-respiratory function is stable. Review of Systems Neuro Review of Systems Unable to obtain. Objective Physical Exam Last Vital Signs Date Time Temp Pulse Resp B/P (MAP) Pulse Ox O2 Delivery O2 Flow Rate FiO2 05/19/18 19:29 64 24 30 05/19/18 16:00 Mechanical Ventilator 05/19/18 15:56 97.8 154/79 (104) 100 97.8 05/10/18 20:00 6.0 Laboratory Tests Test 05/19/18 04:14 Vancomycin Level Trough 17.4 ug/mL (5.0-12.0) H Neurologic Exam Objective PHYSICAL EXAMINATION: GENERAL: He is a well-developed, ill-looking black gentleman, lying in bed, in no acute distress. HEAD: Normocephalic and atraumatic. EENT: Examination benign. NECK: No neck rigidity was observed. NEUROLOGICAL EXAMINATION: MENTAL STATUS EXAMINATION: He could be aroused with vocal stimuli. When aroused, his eyes were open and he made consistent eye contact. He turned his eyes and head towards the side of vocal stimulation. He said a single word. He could not cooperate for further mental status testing. SPEECH: Could not be tested. LANGUAGE: Could not be tested. CRANIAL NERVE EXAMINATION: II: He did blink to threat. III, IV & : External ocular movements were present. The pupils were 3 mm in diameter, equal, round, regular, and reactive sluggishly to light. V & VII: The corneal reflexes were present bilaterally. However, the right- sided reflex was significantly diminished compared to the left. VIII: He did not respond to sounds and had no nystagmus. IX & X: Gag reflex was suppressed. XI: The sternocleidomastoids and trapezii functioned minimally. XII: The tongue was in the midline. MOTOR SYSTEM: The tone was increased in all four extremities with spasticity more marked on the right than on the left. Examination of muscle mass revealed generalized muscle wasting, again more marked on the right than on the left. Examination of power was impossible to perform. He did move all four extremities on command with possibly right greater than left-sided weakness. SENSORY EXAMINATION: He responded appropriately to deep pain with less vigorous responses on the right side compared to the left. REFLEXES: Trace+ and bilaterally symmetrical at the biceps, triceps, brachioradialis. 0 at both knees and ankles. The plantar responses were extensor bilaterally. COORDINATION, STANCE & GAIT: Could not be tested. Impression/Recommendations Diagnostic Impression 1. Mr. Sagar Narvaez is a 72-year-old, [place] gentleman, of unknown handedness, who does have a past history of cerebrovascular disease with a prior stroke, pulmonary tuberculosis, chronic respiratory failure for which he has tracheostomy, and dysphagia for which he has a gastrostomy; who lives in senior care where he was noted to have an alteration in his mental state in the form of increased lethargy. He was thus brought into the [facility] emergency room and following admission, he apparently spiked a fever to 103 degrees Fahrenheit followed by multiple seizures. He was cooled down, given Ativan and started on Keppra and has been seizure-free since then. 2. He was was sleeping when I went to see him. He could be aroused easily with vocal stimuli. When aroused, his eyes were open and he made consistent eye contact. He said "yes" when asked if he felt better. He was not interactive otherwise. He turned his eyes and head towards the side of vocal stimulation. He blinked to threat. He continues to be seizure-free. He continues to be non- functional. His cardio-respiratory function is stable. 3. On neurological examination, at this time, he can be aroused. He makes eye contact. He does blink to threat. He said a single word. His corneal reflex is diminished on the right side compared to the left. 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 In addition, he responds to deep pain, less on the right than on the left. His deep tendon reflexes are globally diminished and his plantar responses are extensor bilaterally. 4. Laboratory data on my initial evaluation revealed that his WBC count is creeping up from 4.4 to 9.5. He is significantly anemic with a hemoglobin of 8.8 G. His chemistry panel reveals that his bilirubin is elevated to 1.1. His alkaline phosphatase is elevated to 367, his AST is elevated to 52. His albumin is low at 1.9. His arterial blood gas reveals a pCO2 of 29 and a pO2 of 59 with a pH of 7.43. His urinalysis reveals 2+ leukocyte esterase with 2-4 RBCs and 2-4 WBCs per high-power field. 5. The EEG done on 04/27/18 revealed a moderately severe encephalopathy and left > right hemispheric dysfunction. No inter-ictal discharges were seen. 6. The CT of the brain done on 04/30/18 revealed multiple old bilateral cerebral infarcts involving the left > right brain. 7. 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 8. His mental state is still waxing and waning. He is minimally less encephalopathic today. Recommendations 1. Continue present management. 2. Continue Keppra 750 mg q.12 hours. 3. Agree with plan to transfer to [facility]. Mercedes Coelho M.D., M.S.P.Rosa M. MERCEDES COELHO May 19, 2018 21:01
--- NOTE | 2018-05-19 22:05 | General Progress Note ---
Assessment/Plan Assessment/Plan Assessment - suspected early cirrhosis based on imaging - hepatitis A/B/C negative - TRISTAN negative but F-Actin (+) - ? 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 Recommendations - not good candidate for liver biopsy or for steroids - watch LFT on INH - declining - will consider MRI - would follow conservatively - continue TF - re check LFT in am Subjective Allergies: Coded Allergies: No Known Allergies (Unverified , 01/27/17) Subjective No events overnight Tolerating TF non communicative no labs today Objective Last 24 Hour Vital Signs Date Time Temp Pulse Resp B/P (MAP) Pulse Ox O2 Delivery O2 Flow Rate FiO2 05/19/18 21:25 55 22 30 05/19/18 21:00 65 141/73 05/19/18 20:00 Mechanical Ventilator 05/19/18 20:00 30 05/19/18 20:00 97.9 65 18 141/73 (95) 100 97.9 05/19/18 19:29 64 24 30 05/19/18 19:16 60 05/19/18 16:50 69 25 30 05/19/18 16:00 Mechanical Ventilator 05/19/18 16:00 30 05/19/18 16:00 64 05/19/18 15:56 97.8 66 24 154/79 (104) 100 97.8 05/19/18 15:28 71 18 30 05/19/18 12:30 61 18 30 05/19/18 12:00 59 05/19/18 12:00 Mechanical Ventilator 05/19/18 12:00 30 05/19/18 11:40 97.8 61 14 154/83 (106) 100 97.8 05/19/18 11:13 100 05/19/18 11:13 62 19 30 05/19/18 09:44 58 20 30 05/19/18 09:38 63 33 30 05/19/18 08:24 63 153/80 05/19/18 08:24 63 153/80 05/19/18 08:00 60 05/19/18 08:00 Mechanical Ventilator 05/19/18 08:00 30 05/19/18 07:48 98.7 63 23 153/80 (104) 100 98.7 05/19/18 07:00 62 18 30 05/19/18 05:19 56 17 30 05/19/18 04:00 Mechanical Ventilator 05/19/18 04:00 55 05/19/18 04:00 30 05/19/18 04:00 98.1 58 18 138/74 (95) 100 98.1 05/19/18 03:14 63 15 30 05/19/18 00:55 55 20 30 05/19/18 00:00 Mechanical Ventilator 05/19/18 00:00 97.6 58 16 147/72 (97) 100 97.6 05/19/18 00:00 30 05/18/18 23:28 56 05/18/18 22:34 59 24 30 Intake and Output 05/18/18 05/19/18 19:00 07:00 Intake Total 1178.708 ml 1501.208 ml Output Total 1300 ml 1100 ml Balance -121.292 ml 401.208 ml Free Water 220 ml 30 ml IV Total 238.708 ml 671.208 ml Tube Feeding 720 ml 720 ml Other 80 ml Output Urine Total 1300 ml 1100 ml # Bowel Movements 4 Laboratory Tests 05/19/18 04:14: Vancomycin Level Trough 17.4H Height (Feet): 5 Height (Inches): 7.00 Weight (Pounds): 161 Objective very thin AA man non communicative NCAT (+) trach CTA RRR soft ND NT, (+) GT no edema Oli Amaya MD May 19, 2018 22:05
[2018-05-20] VITALS (7 sets, daily range): BP systolic 136–155; BP diastolic 64–81
--- NOTE | 2018-05-20 00:48 | Progress Note ---
CARDIOLOGY PROGRESS NOTE DATE: 05/19/2018 SUBJECTIVE: The patient remains on ventilator support. No respiratory distress. Tolerating feedings. Monitored rhythm is sinus. No significant bradycardia. OBJECTIVE: VITAL SIGNS: Blood pressure 141/73, pulse 65, and respirations 24. Afebrile. LUNGS: Coarse breath sounds. Few rhonchi. HEART: Regular rhythm and rate. Normal S1, S2. ABDOMEN: Soft. G-tube intact. EXTREMITIES: Trace edema. LABORATORY DATA: No new lab studies. IMPRESSION: 1. Respiratory failure. 2. Severe protein-calorie malnutrition. 3. Acute on chronic diastolic congestive heart failure, clinically compensated. 4. Pulmonary tuberculosis. 5. History of hypomagnesemia. 6. Sinus bradycardia, resolved with lower dose beta-blockade. PLAN: 1. Await bed at subacute facility. 2. Continue ventilator support. 3. Protein supplement. 4. Maintain current dose of beta-cr. 5. No indication for diuresis at this time. Jones Arauz M.D. DR: OLEG JOB#: [id number] CC:
[2018-05-20] MEDS: Vancomycin 1gm in D5W 275ml IVPB SCH ×2 (05:00→16:50)
[2018-05-20 05:17] LABS: EOSINOPHILS % (AUTO) 1.2 % (0.0-3.0); HEMATOCRIT 27.4 % (42.0-52.0); HEMOGLOBIN 8.7 G/DL (14.2-18.0); LYMPHOCYTES % (AUTO) 20.7 % (20.0-45.0); MEAN CORPUSCULAR VOLUME 77 FL (80-99); MONOCYTES % (AUTO) 17.2 % (1.0-10.0); NEUTROPHILS % (AUTO) 59.9 % (45.0-75.0); PLATELET COUNT 223 K/UL (150-450); RED BLOOD COUNT 3.57 M/UL (4.70-6.10); RED CELL DISTRIBUTION WIDTH 16.9 % (11.6-14.8); WHITE BLOOD COUNT 3.5 K/UL (4.8-10.8)
[2018-05-20 05:44] LABS: ALANINE AMINOTRANSFERASE 16 U/L (12-78); ALBUMIN 1.6 G/DL (3.4-5.0); ALBUMIN/GLOBULIN RATIO 0.3 (1.0-2.7); ALKALINE PHOSPHATASE 333 U/L (46-116); ANION GAP 5 mmol/L (5-15); ASPARTATE AMINO TRANSFERASE 39 U/L (15-37); BILIRUBIN,TOTAL 0.3 MG/DL (0.2-1.0); BLOOD UREA NITROGEN 24 mg/dL (7-18); CALCIUM 8.2 MG/DL (8.5-10.1); CARBON DIOXIDE 27 MMOL/L (21-32); CHLORIDE 107 MMOL/L (98-107); CREATININE 0.5 MG/DL (0.55-1.30); POTASSIUM 4.1 MMOL/L (3.5-5.1); SODIUM 139 MMOL/L (136-145)
[2018-05-20] MEDS: Meropenem 500 MG in NS 55 ML IVPB SCH ×2 (06:24→13:24)
[2018-05-20] MEDS: Pyridoxine 50mg tab ORAL SCH (08:21)
[2018-05-20] MEDS: Ascorbic Acid 500mg tab ORAL SCH (08:23)
[2018-05-20] MEDS: Isoniazid 300mg tab ORAL SCH (08:24)
[2018-05-20] MEDS: Metoprolol Tartrate 50mg tab GT SCH ×2 (08:25→21:00)
--- NOTE | 2018-05-20 08:46 | General Progress Note ---
Assessment/Plan Problem List: (1) Status epilepticus ICD Codes: G40.901 - Epilepsy, unspecified, not intractable, with status epilepticus SNOMED: 129048114 (2) Encephalopathy acute ICD Codes: G93.40 - Encephalopathy, unspecified SNOMED: 56940770, 867356766 (3) Probable sepsis ICD Codes: A41.9 - Sepsis, unspecified organism SNOMED: 849918988 (4) Dementia ICD Codes: F03.90 - Unspecified dementia without behavioral disturbance SNOMED: 03454879 (5) Encephalopathy ICD Codes: G93.40 - Encephalopathy, unspecified SNOMED: 65647074 (6) Sepsis ICD Codes: A41.9 - Sepsis, unspecified organism SNOMED: 41749650 (7) Pulmonary tuberculosis ICD Codes: A15.0 - Tuberculosis of lung SNOMED: 343471389 (8) Dehydration ICD Codes: E86.0 - Dehydration SNOMED: 00355757 (9) Altered level of consciousness ICD Codes: R40.4 - Transient alteration of awareness SNOMED: 1529852 Status: stable, progressing Assessment/Plan vent support wean as able gt feeds wound care sz rx wound care dc planning to [facility] d/w - she is ok with going back to [place] Subjective ROS Limited/Unobtainable: No Constitutional: Reports: malaise, weakness HEENT: Reports: no symptoms Cardiovascular: Reports: no symptoms Respiratory: Reports: no symptoms Gastrointestinal/Abdominal: Reports: no symptoms Genitourinary: Reports: no symptoms Neurologic/Psychiatric: Reports: pre-existing deficit Endocrine: Reports: no symptoms Hematologic/Lymphatic: Reports: no symptoms Allergies: Coded Allergies: No Known Allergies (Unverified , 01/27/17) All Systems: reviewed and negative except above Subjective no events. stable on the vent. no beds at [facility]. tolerating feeds. no fever or chills. d/w . informed her that pts secondary insurance would not authorize [facility]. Objective Last 24 Hour Vital Signs Date Time Temp Pulse Resp B/P (MAP) Pulse Ox O2 Delivery O2 Flow Rate FiO2 05/20/18 08:25 64 140/64 05/20/18 08:24 64 140/64 05/20/18 08:00 97.5 64 20 140/64 (89) 100 97.5 05/20/18 07:12 72 22 30 05/20/18 05:11 69 20 30 05/20/18 04:00 30 05/20/18 04:00 Mechanical Ventilator 05/20/18 04:00 98.1 73 26 150/75 (100) 100 98.1 05/20/18 03:30 68 05/20/18 03:07 66 21 30 05/20/18 00:46 64 22 30 05/20/18 00:00 Mechanical Ventilator 05/20/18 00:00 30 05/20/18 00:00 97.5 73 16 136/65 (88) 100 97.5 05/19/18 23:30 59 05/19/18 23:29 59 20 30 05/19/18 21:25 55 22 30 05/19/18 21:00 65 141/73 05/19/18 20:00 Mechanical Ventilator 05/19/18 20:00 30 05/19/18 20:00 97.9 65 18 141/73 (95) 100 97.9 05/19/18 19:29 64 24 30 05/19/18 19:16 60 05/19/18 16:50 69 25 30 05/19/18 16:00 Mechanical Ventilator 05/19/18 16:00 30 05/19/18 16:00 64 05/19/18 15:56 97.8 66 24 154/79 (104) 100 97.8 05/19/18 15:28 71 18 30 05/19/18 12:30 61 18 30 05/19/18 12:00 59 05/19/18 12:00 Mechanical Ventilator 05/19/18 12:00 30 05/19/18 11:40 97.8 61 14 154/83 (106) 100 97.8 05/19/18 11:13 100 05/19/18 11:13 62 19 30 05/19/18 09:44 58 20 30 05/19/18 09:38 63 33 30 Intake and Output 05/19/18 05/20/18 19:00 07:00 Intake Total 1412.500 ml 1092.500 ml Output Total 1000 ml 850 ml Balance 412.500 ml 242.500 ml Free Water 260 ml IV Total 432.500 ml 432.500 ml Tube Feeding 720 ml 660 ml Output Urine Total 1000 ml 850 ml Laboratory Tests 05/20/18 04:10: White Blood Count 3.5L, Red Blood Count 3.57L, Hemoglobin 8.7L, Hematocrit 27.4L , Mean Corpuscular Volume 77L, Mean Corpuscular Hemoglobin 24.5L, Mean Corpuscular Hemoglobin Concent 31.9L, Red Cell Distribution Width 16.9H, Platelet Count 223, Mean Platelet Volume 5.6L, Neutrophils (%) (Auto) 59.9, Lymphocytes (%) (Auto) 20.7, Monocytes (%) (Auto) 17.2H, Eosinophils (%) (Auto) 1.2, Basophils (%) (Auto) 1.0, Sodium Level 139, Potassium Level 4.1, Chloride Level 107, Carbon Dioxide Level 27, Anion Gap 5, Blood Urea Nitrogen 24H, Creatinine 0.5L, Estimat Glomerular Filtration Rate , Glucose Level 115H, Calcium Level 8.2L, Magnesium Level 1.6L, Total Bilirubin 0.3, Aspartate Amino Transf (AST/SGOT) 39H, Alanine Aminotransferase (ALT/SGPT) 16, Alkaline Phosphatase 333H, Pro-B-Type Natriuretic Peptide 351H, Total Protein 6.3L, Albumin 1.6L, Globulin 4.7, Albumin/Globulin Ratio 0.3L Height (Feet): 5 Height (Inches): 7.00 Weight (Pounds): 160 Objective General Appearance: WD/WN, cachetic, thin Neck: supple Cardiovascular: tachycardia Respiratory/Chest: rhonchi - bilaterally Abdomen: normal bowel sounds, non tender, soft, no organomegaly Edema: no edema noted Arm (L), no edema noted Arm (R), no edema noted Leg (L), no edema noted Leg (R), no edema noted Pedal (L), no edema noted Pedal (R), no edema noted Generalized Jarrod Vásquez MD May 20, 2018 08:46
[2018-05-20] MEDS: Multivitamin w/Minerals tab ORAL SCH (09:26)
[2018-05-20] MEDS: Docusate 100mg/10ml Liq ORAL SCH (09:46)
[2018-05-20] MEDS: levETIRAcetam 750 MG in D5W 95 ML IV SCH ×2 (09:46→20:50)
--- NOTE | 2018-05-20 11:07 | Infectious Diseases Prog Note ---
"Assessment/Plan Assessment/Plan antibiotics : vancomycin iv 05.15.18 - meropenem 05.16.18- isoniazid, rifampin, pyrazinamide, ethambutol, pyridoxine A 1. pulmonary TB 2. e.coli | acenitobacter pneumonia 3. e.coli UTI 4. respiratory failure 5. encephalopathy 6. increased LFT improving 7. enterococcus sepsis s/p catheter removal P 1. continue isoniazid, rifampin, pyrazinamide, ethambutol, pyridoxine 2. will follow up cultures 3. continue iv vancomycin 4. continue meropenem 5 more days 5. 2 d echo Subjective ROS Limited/Unobtainable: Yes Allergies: Coded Allergies: No Known Allergies (Unverified , 01/27/17) Objective Vital Signs Last 24 Hour Vital Signs Date Time Temp Pulse Resp B/P (MAP) Pulse Ox O2 Delivery O2 Flow Rate FiO2 05/20/18 09:33 100 05/20/18 08:56 59 28 30 05/20/18 08:25 64 140/64 05/20/18 08:24 64 140/64 05/20/18 08:00 97.5 64 20 140/64 (89) 100 97.5 05/20/18 08:00 30 05/20/18 08:00 Mechanical Ventilator 05/20/18 07:12 72 22 30 05/20/18 05:11 69 20 30 05/20/18 04:00 30 05/20/18 04:00 Mechanical Ventilator 05/20/18 04:00 98.1 73 26 150/75 (100) 100 98.1 05/20/18 03:30 68 05/20/18 03:07 66 21 30 05/20/18 00:46 64 22 30 05/20/18 00:00 Mechanical Ventilator 05/20/18 00:00 30 05/20/18 00:00 97.5 73 16 136/65 (88) 100 97.5 05/19/18 23:30 59 05/19/18 23:29 59 20 30 05/19/18 21:25 55 22 30 05/19/18 21:00 65 141/73 05/19/18 20:00 Mechanical Ventilator 05/19/18 20:00 30 05/19/18 20:00 97.9 65 18 141/73 (95) 100 97.9 05/19/18 19:29 64 24 30 05/19/18 19:16 60 05/19/18 16:50 69 25 30 05/19/18 16:00 Mechanical Ventilator 05/19/18 16:00 30 05/19/18 16:00 64 05/19/18 15:56 97.8 66 24 154/79 (104) 100 97.8 05/19/18 15:28 71 18 30 05/19/18 12:30 61 18 30 05/19/18 12:00 59 05/19/18 12:00 Mechanical Ventilator 05/19/18 12:00 30 05/19/18 11:40 97.8 61 14 154/83 (106) 100 97.8 05/19/18 11:13 100 05/19/18 11:13 62 19 30 Height (Feet): 5 Height (Inches): 7.00 Weight (Pounds): 160 HEENT: status post trach Respiratory/Chest: lungs clear Cardiovascular: normal rate, regular rhythm, no gallop/murmur Abdomen: soft, non tender, other - GT Extremities: no edema Laboratory Tests Test 05/20/18 04:10 White Blood Count 3.5 K/UL (4.8-10.8) L Red Blood Count 3.57 M/UL (4.70-6.10) L Hemoglobin 8.7 G/DL (14.2-18.0) L Hematocrit 27.4 % (42.0-52.0) L Mean Corpuscular Volume 77 FL (80-99) L Mean Corpuscular Hemoglobin 24.5 PG (27.0-31.0) L Mean Corpuscular Hemoglobin Concent 31.9 G/DL (32.0-36.0) L Red Cell Distribution Width 16.9 % (11.6-14.8) H Platelet Count 223 K/UL (150-450) Mean Platelet Volume 5.6 FL (6.5-10.1) L Neutrophils (%) (Auto) 59.9 % (45.0-75.0) Lymphocytes (%) (Auto) 20.7 % (20.0-45.0) Monocytes (%) (Auto) 17.2 % (1.0-10.0) H Eosinophils (%) (Auto) 1.2 % (0.0-3.0) Basophils (%) (Auto) 1.0 % (0.0-2.0) Sodium Level 139 MMOL/L (136-145) Potassium Level 4.1 MMOL/L (3.5-5.1) Chloride Level 107 MMOL/L (98-107) Carbon Dioxide Level 27 MMOL/L (21-32) Anion Gap 5 mmol/L (5-15) Blood Urea Nitrogen 24 mg/dL (7-18) H Creatinine 0.5 MG/DL (0.55-1.30) L Estimat Glomerular Filtration Rate mL/min (>60) Glucose Level 115 MG/DL (74-106) H Calcium Level 8.2 MG/DL (8.5-10.1) L Magnesium Level 1.6 MG/DL (1.8-2.4) L Total Bilirubin 0.3 MG/DL (0.2-1.0) Aspartate Amino Transf (AST/SGOT) 39 U/L (15-37) H Alanine Aminotransferase (ALT/SGPT) 16 U/L (12-78) Alkaline Phosphatase 333 U/L (46-116) H Pro-B-Type Natriuretic Peptide 351 pg/mL (0-125) H Total Protein 6.3 G/DL (6.4-8.2) L Albumin 1.6 G/DL (3.4-5.0) L Globulin 4.7 g/dL Albumin/Globulin Ratio 0.3 (1.0-2.7) L Current Medications Medications (Trade) Dose Ordered Sig/Iram Route PRN Reason Start Time Stop Time Status Last Admin Dose Admin Acetaminophen (Tylenol) 650 mg Q4H PRN ORAL Fever/Headache/Mild Pain 05/02/18 18:30 05/26/18 18:29 05/14/18 05:26 Amlodipine Besylate (Norvasc) 5 mg DAILY GT 05/19/18 09:00 06/18/18 08:59 05/20/18 08:24 Artificial Tears (Akwa-Tears) 2 drop FIVE TIMES A DAY PRN BOTH EYES Dry Eyes 05/02/18 19:00 05/31/18 11:44 05/06/18 08:32 Ascorbic Acid (Vitamin C) 250 mg DAILY ORAL 05/11/18 09:00 06/10/18 08:59 05/20/18 08:23 Atorvastatin Calcium (Lipitor) 10 mg BEDTIME GT 05/02/18 21:00 05/28/18 20:59 05/19/18 21:00 Clonidine HCl (Catapres Tab) 0.1 mg Q4H PRN ORAL SBP >160 05/02/18 19:00 05/28/18 10:59 05/14/18 16:27 Docusate Sodium (Colace) 100 mg DAILY ORAL 05/03/18 09:00 05/27/18 08:59 05/20/18 09:46 Ethambutol HCl (Myambutol) 800 mg DAILY ORAL 05/03/18 09:00 06/19/18 08:59 05/20/18 08:21 Hydralazine HCl (Apresoline) 10 mg Q4H PRN IV SBP >160 05/02/18 18:18 05/28/18 18:17 05/17/18 08:36 Isoniazid (Inh) 300 mg DAILY ORAL 05/03/18 09:00 06/19/18 08:59 05/20/18 08:24 Lansoprazole (Prevacid) 30 mg Q12HR ORAL 05/05/18 21:00 06/04/18 20:59 05/20/18 08:21 Levetiracetam 750 mg/Dextrose 102.5 ml @ 440 mls/hr Q12HR IV 05/02/18 21:00 05/29/18 00:59 05/20/18 09:46 Meropenem 500 mg/ Sodium Chloride 55 ml @ 110 mls/hr EVERY 8 HOURS IVPB 05/16/18 14:00 05/25/18 23:00 05/20/18 06:24 Metoprolol Tartrate (Lopressor) 25 mg Q12HR GT 05/17/18 09:00 06/16/18 08:59 05/20/18 08:25 Multivitamins Therapeutic (Therapeutic Multivitamin) 1 ea DAILY ORAL 05/03/18 09:00 05/27/18 08:59 05/20/18 09:26 Ondansetron HCl (Zofran) 4 mg Q6H PRN IVP Nausea & Vomiting 05/02/18 18:19 05/28/18 18:18 Pyrazinamide (Pza) 1,000 mg DAILY ORAL 05/03/18 09:00 06/19/18 08:59 05/20/18 08:22 Pyridoxine HCl (Vitamin B6) 50 mg DAILY ORAL 05/03/18 09:00 06/19/18 08:59 05/20/18 08:21 Rifampin (Rifadin) 600 mg DAILY ORAL 05/03/18 09:00 06/19/18 08:59 05/20/18 08:21 Sennosides (Senokot) 2 tab BIDPRN PRN GT Constipation 05/02/18 18:20 05/27/18 18:19 05/14/18 16:27 Sorbitol (Sorbitol) 30 ml Q6H PRN GT Constipation 05/14/18 19:00 06/13/18 18:59 Tamsulosin HCl (Flomax) 0.4 mg BEDTIME ORAL 05/02/18 21:00 05/27/18 20:59 05/19/18 21:00 Vancomycin HCl (Vanco rx to dose) 1 ea DAILY PRN MISC Per rx protocol 05/15/18 14:00 06/14/18 13:59 Vancomycin HCl 1 gm/Dextrose 275 ml @ 183.708 mls/hr Q12H IVPB 05/17/18 17:00 05/22/18 16:59 05/20/18 05:00 Sergio Urban MD May 20, 2018 11:07"
--- NOTE | 2018-05-20 15:08 | Pulmonology Progress Note ---
Assessment/Plan Assessment/Plan IMPRESSION respiratory failure, vent dependent possible sepsis chronic encephalopathy trach debility hypoxemia htn metabolic acidosis ho hypertension ho seizures abnormal imaging PLAN vent as is stable and chronically ill on AC- unable to wean elevate head and monitor monitor ABG PRN suction PRN dc planning to jonh oxygen adequate monitor hemodynamics and adjust prognosis poor at present fully dependent on vent at present medications/laboratory data/nursing notes reviewed in detail note reviewed and edited care discussed with RN and RT Subjective ROS Limited/Unobtainable: Yes Allergies: Coded Allergies: No Known Allergies (Unverified , 01/27/17) Subjective care reviewed on vent full support doing poorly and without change Objective Last 24 Hour Vital Signs Date Time Temp Pulse Resp B/P (MAP) Pulse Ox O2 Delivery O2 Flow Rate FiO2 05/20/18 13:49 70 24 30 05/20/18 12:00 96.8 66 20 155/81 (105) 100 96.8 05/20/18 12:00 30 05/20/18 12:00 Mechanical Ventilator 05/20/18 12:00 64 05/20/18 11:18 62 24 30 05/20/18 09:33 100 05/20/18 08:56 59 28 30 05/20/18 08:25 64 140/64 05/20/18 08:24 64 140/64 05/20/18 08:00 97.5 64 20 140/64 (89) 100 97.5 05/20/18 08:00 30 05/20/18 08:00 Mechanical Ventilator 05/20/18 07:35 66 05/20/18 07:12 72 22 30 05/20/18 05:11 69 20 30 05/20/18 04:00 30 05/20/18 04:00 Mechanical Ventilator 05/20/18 04:00 98.1 73 26 150/75 (100) 100 98.1 05/20/18 03:30 68 05/20/18 03:07 66 21 30 05/20/18 00:46 64 22 30 05/20/18 00:00 Mechanical Ventilator 05/20/18 00:00 30 05/20/18 00:00 97.5 73 16 136/65 (88) 100 97.5 05/19/18 23:30 59 05/19/18 23:29 59 20 30 05/19/18 21:25 55 22 30 05/19/18 21:00 65 141/73 05/19/18 20:00 Mechanical Ventilator 05/19/18 20:00 30 05/19/18 20:00 97.9 65 18 141/73 (95) 100 97.9 05/19/18 19:29 64 24 30 05/19/18 19:16 60 05/19/18 16:50 69 25 30 05/19/18 16:00 Mechanical Ventilator 05/19/18 16:00 30 05/19/18 16:00 64 05/19/18 15:56 97.8 66 24 154/79 (104) 100 97.8 05/19/18 15:28 71 18 30 Intake and Output 05/19/18 05/20/18 19:00 07:00 Intake Total 1412.500 ml 1152.500 ml Output Total 1000 ml 850 ml Balance 412.500 ml 302.500 ml Free Water 260 ml IV Total 432.500 ml 432.500 ml Tube Feeding 720 ml 720 ml Output Urine Total 1000 ml 850 ml Objective WDWN NAD poorly responsive moderate breath sounds bilaterally with some rhonchi [id number] without MRG NABS nontender no HSM; gt no CCE cachectic as is poor response to pain skin noted comfortable but obtunded reviewed and edited Laboratory Tests 05/20/18 04:10: White Blood Count 3.5L, Red Blood Count 3.57L, Hemoglobin 8.7L, Hematocrit 27.4L , Mean Corpuscular Volume 77L, Mean Corpuscular Hemoglobin 24.5L, Mean Corpuscular Hemoglobin Concent 31.9L, Red Cell Distribution Width 16.9H, Platelet Count 223, Mean Platelet Volume 5.6L, Neutrophils (%) (Auto) 59.9, Lymphocytes (%) (Auto) 20.7, Monocytes (%) (Auto) 17.2H, Eosinophils (%) (Auto) 1.2, Basophils (%) (Auto) 1.0, Sodium Level 139, Potassium Level 4.1, Chloride Level 107, Carbon Dioxide Level 27, Anion Gap 5, Blood Urea Nitrogen 24H, Creatinine 0.5L, Estimat Glomerular Filtration Rate , Glucose Level 115H, Calcium Level 8.2L, Magnesium Level 1.6L, Total Bilirubin 0.3, Aspartate Amino Transf (AST/SGOT) 39H, Alanine Aminotransferase (ALT/SGPT) 16, Alkaline Phosphatase 333H, Pro-B-Type Natriuretic Peptide 351H, Total Protein 6.3L, Albumin 1.6L, Globulin 4.7, Albumin/Globulin Ratio 0.3L Current Medications Medications (Trade) Dose Ordered Sig/Iram Route PRN Reason Start Time Stop Time Status Last Admin Dose Admin Acetaminophen (Tylenol) 650 mg Q4H PRN ORAL Fever/Headache/Mild Pain 05/02/18 18:30 05/26/18 18:29 05/14/18 05:26 Amlodipine Besylate (Norvasc) 5 mg DAILY GT 05/19/18 09:00 06/18/18 08:59 05/20/18 08:24 Artificial Tears (Akwa-Tears) 2 drop FIVE TIMES A DAY PRN BOTH EYES Dry Eyes 05/02/18 19:00 05/31/18 11:44 05/06/18 08:32 Ascorbic Acid (Vitamin C) 250 mg DAILY ORAL 05/11/18 09:00 06/10/18 08:59 05/20/18 08:23 Atorvastatin Calcium (Lipitor) 10 mg BEDTIME GT 05/02/18 21:00 05/28/18 20:59 05/19/18 21:00 Clonidine HCl (Catapres Tab) 0.1 mg Q4H PRN ORAL SBP >160 05/02/18 19:00 05/28/18 10:59 05/14/18 16:27 Docusate Sodium (Colace) 100 mg DAILY ORAL 05/03/18 09:00 05/27/18 08:59 05/20/18 09:46 Ethambutol HCl (Myambutol) 800 mg DAILY ORAL 05/03/18 09:00 06/19/18 08:59 05/20/18 08:21 Hydralazine HCl (Apresoline) 10 mg Q4H PRN IV SBP >160 05/02/18 18:18 05/28/18 18:17 05/17/18 08:36 Isoniazid (Inh) 300 mg DAILY ORAL 05/03/18 09:00 06/19/18 08:59 05/20/18 08:24 Lansoprazole (Prevacid) 30 mg Q12HR ORAL 05/05/18 21:00 06/04/18 20:59 05/20/18 08:21 Levetiracetam 750 mg/Dextrose 102.5 ml @ 440 mls/hr Q12HR IV 05/02/18 21:00 05/29/18 00:59 05/20/18 09:46 Meropenem 500 mg/ Sodium Chloride 55 ml @ 110 mls/hr EVERY 8 HOURS IVPB 05/16/18 14:00 05/25/18 23:00 05/20/18 13:24 Metoprolol Tartrate (Lopressor) 25 mg Q12HR GT 05/17/18 09:00 06/16/18 08:59 05/20/18 08:25 Multivitamins Therapeutic (Therapeutic Multivitamin) 1 ea DAILY ORAL 05/03/18 09:00 05/27/18 08:59 05/20/18 09:26 Ondansetron HCl (Zofran) 4 mg Q6H PRN IVP Nausea & Vomiting 05/02/18 18:19 05/28/18 18:18 Pyrazinamide (Pza) 1,000 mg DAILY ORAL 05/03/18 09:00 06/19/18 08:59 05/20/18 08:22 Pyridoxine HCl (Vitamin B6) 50 mg DAILY ORAL 05/03/18 09:00 06/19/18 08:59 05/20/18 08:21 Rifampin (Rifadin) 600 mg DAILY ORAL 05/03/18 09:00 06/19/18 08:59 05/20/18 08:21 Sennosides (Senokot) 2 tab BIDPRN PRN GT Constipation 05/02/18 18:20 05/27/18 18:19 05/14/18 16:27 Sorbitol (Sorbitol) 30 ml Q6H PRN GT Constipation 05/14/18 19:00 06/13/18 18:59 Tamsulosin HCl (Flomax) 0.4 mg BEDTIME ORAL 05/02/18 21:00 05/27/18 20:59 05/19/18 21:00 Vancomycin HCl (Vanco rx to dose) 1 ea DAILY PRN MISC Per rx protocol 05/15/18 14:00 06/14/18 13:59 Vancomycin HCl 1 gm/Dextrose 275 ml @ 183.708 mls/hr Q12H IVPB 05/17/18 17:00 05/22/18 16:59 05/20/18 05:00 Nakul Cisse MD May 20, 2018 15:08
--- NOTE | 2018-05-20 15:13 | Cardiology Report ---
APPROVED REPORT EXAM: Two-dimensional and M-mode echocardiogram with Doppler and color Doppler. INDICATION ENDOCARDIDTIS M-Mode DIMENSIONS IVSd1.7 (0.7-1.1cm)Left Atrium (MM)2.4 (1.6-4.0cm) LVDd3.6 (3.5-5.6cm)Aortic Root4.0 (2.0-3.7cm) PWd1.7 (0.7-1.1cm)Aortic Cusp Exc.1.9 (1.5-2.0cm) IVSs2.0 cm LVDs2.3 (2.5-4.0cm) PWs2.1 cm Normal left ventricular chamber size, systolic function and wall motion to extent visualized . Left ventricular ejection fraction estimated to be 60-65 %. Mild left ventricular hypertrophy by 2-D. Anterior Echo-free space, may be due to pericardial fat or effusion. Possible pleural effusion present . All other cardiac chamber sizes are within normal limits. Focal aortic valve sclerosis with adequate cusp excursion. Mildly Thickened mitral valve leaflets with normal excursion. Mildly Mitral annulus and aortic root calcification. Pulmonic valve not well visualized. Normal tricuspid valve structure. Subcostal views are not obtained due to GI- Tube. A color flow and spectral Doppler study was performed and revealed: No aortic insufficiency. Mild mitral regurgitation. Mitral diastolic velocities suggest reduced left ventricular relaxation c/w diastolic dysfunction grade 1. Mild tricuspid regurgitation. Tricuspid systolic velocities suggests peak right ventricular systolic pressure of 47 mmHg, consistent with mild pulmonary hypertension . Trace to mild Pulmonic regurgitation present.
[2018-05-20] MEDS: Tamsulosin 0.4mg cap ORAL SCH (20:18)
[2018-05-20] MEDS ORDERED: Tubing IV Secondary IV ONE (21:19)
--- NOTE | 2018-05-20 22:11 | General Progress Note ---
Assessment/Plan Assessment/Plan Assessment - suspected early cirrhosis based on imaging - hepatitis A/B/C negative - RTISTAN negative but F-Actin (+) - ? 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 Recommendations - not good candidate for liver biopsy or for steroids - watch LFT on INH - declining - will consider MRI - would follow conservatively - continue TF Subjective Allergies: Coded Allergies: No Known Allergies (Unverified , 01/27/17) Subjective No events overnight Tolerating TF non communicative labs noted for discharge Objective Last 24 Hour Vital Signs Date Time Temp Pulse Resp B/P (MAP) Pulse Ox O2 Delivery O2 Flow Rate FiO2 05/20/18 21:00 58 140/72 05/20/18 20:10 60 16 30 05/20/18 20:00 30 05/20/18 20:00 97.3 58 20 140/72 (94) 100 97.3 05/20/18 20:00 Mechanical Ventilator 05/20/18 20:00 60 05/20/18 16:30 71 25 30 05/20/18 16:00 Mechanical Ventilator 05/20/18 16:00 30 05/20/18 16:00 65 05/20/18 16:00 97.7 69 20 149/74 (99) 100 97.7 05/20/18 14:52 68 23 30 05/20/18 13:49 70 24 30 05/20/18 12:00 96.8 66 20 155/81 (105) 100 96.8 05/20/18 12:00 30 05/20/18 12:00 Mechanical Ventilator 05/20/18 12:00 64 05/20/18 11:18 62 24 30 05/20/18 09:33 100 05/20/18 08:56 59 28 30 05/20/18 08:25 64 140/64 05/20/18 08:24 64 140/64 05/20/18 08:00 97.5 64 20 140/64 (89) 100 97.5 05/20/18 08:00 30 05/20/18 08:00 Mechanical Ventilator 05/20/18 07:35 66 05/20/18 07:12 72 22 30 05/20/18 05:11 69 20 30 05/20/18 04:00 30 10/16/18 04:00 Mechanical Ventilator 05/20/18 04:00 98.1 73 26 150/75 (100) 100 98.1 05/20/18 03:30 68 05/20/18 03:07 66 21 30 05/20/18 00:46 64 22 30 05/20/18 00:00 Mechanical Ventilator 05/20/18 00:00 30 05/20/18 00:00 97.5 73 16 136/65 (88) 100 97.5 05/19/18 23:30 59 05/19/18 23:29 59 20 30 Intake and Output 05/19/18 05/20/18 19:00 07:00 Intake Total 1412.500 ml 1152.500 ml Output Total 1000 ml 850 ml Balance 412.500 ml 302.500 ml Free Water 260 ml IV Total 432.500 ml 432.500 ml Tube Feeding 720 ml 720 ml Output Urine Total 1000 ml 850 ml Laboratory Tests 05/20/18 04:10: White Blood Count 3.5L, Red Blood Count 3.57L, Hemoglobin 8.7L, Hematocrit 27.4L , Mean Corpuscular Volume 77L, Mean Corpuscular Hemoglobin 24.5L, Mean Corpuscular Hemoglobin Concent 31.9L, Red Cell Distribution Width 16.9H, Platelet Count 223, Mean Platelet Volume 5.6L, Neutrophils (%) (Auto) 59.9, Lymphocytes (%) (Auto) 20.7, Monocytes (%) (Auto) 17.2H, Eosinophils (%) (Auto) 1.2, Basophils (%) (Auto) 1.0, Sodium Level 139, Potassium Level 4.1, Chloride Level 107, Carbon Dioxide Level 27, Anion Gap 5, Blood Urea Nitrogen 24H, Creatinine 0.5L, Estimat Glomerular Filtration Rate , Glucose Level 115H, Calcium Level 8.2L, Magnesium Level 1.6L, Total Bilirubin 0.3, Aspartate Amino Transf (AST/SGOT) 39H, Alanine Aminotransferase (ALT/SGPT) 16, Alkaline Phosphatase 333H, Pro-B-Type Natriuretic Peptide 351H, Total Protein 6.3L, Albumin 1.6L, Globulin 4.7, Albumin/Globulin Ratio 0.3L Height (Feet): 5 Height (Inches): 7.00 Weight (Pounds): 160 Objective very thin AA man non communicative NCAT (+) trach CTA RRR soft ND NT, (+) GT no edema Oli Amaya MD May 20, 2018 22:11
--- NOTE | 2018-05-21 01:00 | Progress Note ---
DATE: 05/20/2018 CARDIOLOGY PROGRESS NOTE SUBJECTIVE: The patient remains on ventilator support by tracheostomy. Monitored rhythm, sinus. OBJECTIVE: VITAL SIGNS: Blood pressure 140/64, pulse 64, respiratory rate 20, and afebrile. LUNGS: Few rhonchi. CARDIAC: Regular rhythm and rate. Normal S1 and S2. ABDOMEN: Soft. G-tube intact. EXTREMITIES: Trace edema. LABORATORY DATA: White count 3.5 and hemoglobin 8.7. Potassium 4.1. Magnesium 1.6. Albumin 1.6. IMPRESSION AND PLAN: 1. Stable from cardiovascular standpoint for subacute facility. 2. Discharge medication regimen reviewed and reconciled. 3. No need for chronic diuretic therapy at this time. 4. Stable on current beta-cr dosing and other cardiovascular regimen. 5. We will follow as needed at subacute facility. 6. Discussed with primary care physician in detail. Jones Arauz M.D. DR: MARCIAL JOB#: [id number] CC:
--- NOTE | 2018-05-21 10:48 | Discharge Summary ---
Discharge Summary Discharge Summary _ DATE OF ADMISSION: 04/26/2018 DATE OF DISCHARGE: 05/20/2018 REASON FOR ADMISSION: 72 years old male resident of retirement facility, with past medical history of encephalopathy, dysphagia, G-tube ,CVA, respiratory failure, status post tracheostomy due to failure to wean, pulmonary TB /under treatment, hypertension, was sent from the retirement [facility] for evaluation due to altered mental status. Laboratory workup revealed no leukocytosis, hemoglobin 9.4 hematocrit 31.3. BUN 29, creatinine 0.5. Lactic acid 1.0 Troponin negative, proBNP 202 . EKG revealed normal sinus rhythm, no acute ischemic changes . AST 46, ALT and lipase within normal limits. Urinalysis no evidence of UTI. ABG revealed evidence of hypoxemia. Chest x-ray showed existing tracheostomy tube, mild right lower lobe lung atelectasis versus infiltrate. Patient admitted with altered mental status , possible PNA, possible sepsis, pulmonary TB, acute kidney injury, respiratory failure, hypoxemia, dysphagia, G tube, CONSULTANTS: rn private duty neurologist Dr. Coelho pulmonary Dr. Cisse ID specialist GI specialist Dr. Amaya [facility]: Patient admitted to [facility]. Ventilator support and tracheostomy care provided . Patient was followed with ABG and CXR,. [employer] followed. Settings titrated as needed,. Patient suctioned as needed Patient was un-weanable, chronically ventilator dependent, on AC mode. Pulmonary toilet provided . Patient was suctioned as needed . Venous Duplex bilateral lower extremities was negative. ID specialist closely followed. Patient was continued on anti- tuberculosis medication regimen RIPE. Patient started on empiric antibiotic for possible pneumonia. Blood culture initially were negative. Urine culture revealed Kaylah. Sputum culture revealed Escherichia coli , 2 different species. Patient was treated for fungal UTI and Escherichia coli pneumonia , status post treatment. Due to intermittent leukocytosis and fevers, blood culture were done and revealed Enterococcus faecalis 2/4. . Central line catheter was discontinued. Echocardiogram subsequently was done and revealed no evidence of vegetation. Repeated urine culture showed E coli ESBL and sputum culture revealed Acinetobacter MDR ( likely contaminant as per ID) and E coli ESBL. Patient to complete antibiotic course at the facility ( vanco mycin and meropenem) as specified by infectious disease specialist. No fever no leukocytosis . Neurologist closely followed. CT of the brain revealed multiply old bilateral cerebral infarcts, involving the left brain more than right brain. EEG revealed moderate to severe encephalopathy and left more than right hemispheric dysfunction. No interictal discharges. Per neurologist , patient history and neurological examination were most compatible with underlying cerebrovascular disease with history of prior multiple strokes, involving left brain more than the right and then post stroke seizure disorder triggered by high fever which was probably related to infectious process. Mental status was closely monitored. Patient was on Keppra . Seizure precautions maintained, no further seizure activity. Gallery [employer] closely followed. Patient initially was hypovolemic due to dehydration , and subsequently started on the IV fluids. Cardiorenal parameters and volumes were closely monitored. Echocardiogram revealed preserved ejection fraction 70-75% and evidence of moderate pulmonary hypertension. Electrolytes were corrected as needed . DVT and GI prophylaxis provided. Patient was continued with antiplatelet therapy / aspirin and statin. Blood pressure was closely monitor and managed with current regimen of beta cr and calcium channel cr. Lipid panel was within normal limits. Noted sinus bradycardia on telemetry , and dose of beta cr was decreased .Sinus bradycardia subsequently resolved. Noted single episode of elevated troponin -0.131; subsequent troponin were negative. Myocardial ischemia was likely related to infectious process , and resolved. Follow-up chest x-ray revealed evidence of pulmonary edema. Pro BNP elevated - 3069. IV fluids discontinued. Patient started on diuresis with close monitoring of volumes and cardiorenal parameters. Pro BNP down to 351, prior to discharge . Follow up chest x-ray revealed improvement in pulmonary congestion. Per rn private duty, patient had acute on chronic diastolic congestion, which prior to discharge was compensated. Per rn private duty no need for routine diuretics. GI specialist closely followed due to anemia. Abdominal ultrasound revealed surgically absent gallbladder and was negative for dilated ducts. Hepatic cirrhosis nodularity was suggestive of cirrhosis. Ascites was possibly indicative of portal hypertension. Splenomegaly and prostatomegaly noted. CT of the abdomen and pelvis revealed liver lesion , possibility of developing small hepatocellular carcinoma could not be ruled out. Trace ascites fluid noted along with splenomegaly and minimal hepatic nodularity indicative of possible hepatic cirrhosis. Moderate left, [id number] right pleural effusion with compressive atelectasis on the right lower lobe along with patchy atelectasis and consolidation. G-tube in position. GI specialist suspected early cirrhosis . Hepatitis panel was negative. TRISTAN was negative , but factor IgG A was positive, unclear significance. Alpha-fetoprotein was n within normal limits . The patient was not a good candidate for liver biopsy or steroids. LFT were trending down. GI specialist recommended conservative treatment , given poor prognosis and multiply comorbidities. GI specialist advised to monitor LFT closely, while on INH. Nutritional supplement implemented in plan of care. Bowel regimen instituted. Hemoglobin and hematocrit were closely monitored with goal to keep hemoglobin above 7. Patient received one unit of packed red blood cells while in the hospital. Health department cleared for discharge. All consultants agreed that overall prognosis for this patient was poor and guarded. Patient stabilized and was discharged to subacute retirement facility for continuation of care. FINAL DIAGNOSES: Acute on chronic metabolic encephalopathy Enterococci sepsis Escherichia coli ESBL pneumonia E coli ESBL UTI Fungal UTI, status post treatment Respiratory failure ,ventilator dependent Tracheostomy status Pulmonary tuberculosis (under treatment) Hypovolemia due to dehydration ( initially, resolved) Acute on chronic diastolic congestive heart failure ( currently compensated) Myocardial ischemia ( recovered) Acute on chronic kidney injury Anemia GI bleeding Status post EGD Gastritis Cerebrovascular disease with history of multiply prior strokes Dysphagia, G-tube feeding Seizure disorder Hypertensive heart disease Sinus bradycardia resolved Severe protein calorie malnutrition Transaminitis Probably early cirrhosis Liver lesion DISCHARGE MEDICATIONS: See Medication Reconciliation list. DISCHARGE INSTRUCTIONS: Patient was discharged to the retirement facility/[facility]. Follow up with medical doctor and rn imaging at the facility. I have been assigned to dictate discharge summary for this account. I was not involved in the patient's management. Mandi Collazo NP May 21, 2018 10:48
== END 2018-05-20 21:20 | DRG 870 ==
LOC: EDBD 20:19 → EMR 20:40 → 2E 21:05 → EDBEDREQ 21:16 → ICU 04-27 12:00 → 2W 05-02 18:39
PROC: 06HN33Z Insertion of Infusion Device into Left Femoral Vein, Percutaneous Approach (ICD-10-PCS; principal; 2018-04-28)
PROC: 5A1955Z Respiratory Ventilation, Greater than 96 Consecutive Hours (ICD-10-PCS; principal; 2018-04-28)
PROC: 0DB68ZX Excision of Stomach, Via Natural or Artificial Opening Endoscopic, Diagnostic (ICD-10-PCS; 2018-04-30)
PROC: B548ZZA Ultrasonography of Superior Vena Cava, Guidance (ICD-10-PCS; 2018-05-05)
PROC: 02HV33Z Insertion of Infusion Device into Superior Vena Cava, Percutaneous Approach (ICD-10-PCS; 2018-05-05)
DX: A41.81 Sepsis due to Enterococcus (principal); R65.21 Severe sepsis with septic shock; G92 Toxic encephalopathy; I50.33 Acute on chronic diastolic (congestive) heart failure; J15.5 Pneumonia due to Escherichia coli; E43 Unspecified severe protein-calorie malnutrition; J96.11 Chronic respiratory failure with hypoxia; A15.0 Tuberculosis of lung; I13.0 Hypertensive heart and chronic kidney disease with heart failure and stage 1 through stage 4 chronic kidney disease, or unspecified chronic kidney disease; K92.0 Hematemesis; D62 Acute posthemorrhagic anemia; Z99.11 Dependence on respirator [ventilator] status; N39.0 Urinary tract infection, site not specified; Z93.0 Tracheostomy status; Z93.1 Gastrostomy status; I69.398 Other sequelae of cerebral infarction; G40.909 Epilepsy, unspecified, not intractable, without status epilepticus; R13.10 Dysphagia, unspecified; N18.9 Chronic kidney disease, unspecified; N40.0 Benign prostatic hyperplasia without lower urinary tract symptoms; E86.0 Dehydration; E78.5 Hyperlipidemia, unspecified; K29.70 Gastritis, unspecified, without bleeding; K74.60 Unspecified cirrhosis of liver; F03.90 Unspecified dementia, unspecified severity, without behavioral disturbance, psychotic disturbance, mood disturbance, and anxiety; Z68.25 Body mass index [BMI] 25.0-25.9, adult; E83.42 Hypomagnesemia; I25.9 Chronic ischemic heart disease, unspecified; E87.6 Hypokalemia
CPT/HCPCS: 36415; 36569; 36600; 70450; 71045; 74160; 76700; 76937; 80053; 80061; 80202; 81001; 81003; 82105; 82248; 82550; 82803; 83540; 83550; 83605; 83690; 83735; 83880; 84100; 84484; 85007; 85025; 85610; 85730; 86039; 86235; 86705; 86709; 86803; 86850; 86900; 86901; 86920; 87040; 87070; 87081; 87086; 87181; 87205; 87340; 93005; 93306; 93970; 94002; 94003; 94150; 94640; 94664; 94760; 95819; 99285; C9399; J2405; J7620; J8499

== ENCOUNTER 2018-05-27 03:36 | Inpatient (IN) | payer MEDICARE, OTHER ==
[2018-05-27] VITALS (20 sets, daily range): BP systolic 100–161; BP diastolic 53–92
[~2018-05-27] VITALS: Ht 170.2 cm; Wt 54.9 kg
[~2018-05-27 03:36] MED LIST changes: +ARTIFICIAL TEAR15 ML BOTH EYES; +ASCORBIC ACID500 M4 ORAL; +COLACE100 MG/10 ORAL; +FLOMAX0.4 MG ORAL; +INH300 MG ORAL; +KEPPRA750 MG ORAL; +LANSOPRAZOLE30 MG ORAL; +LIPITOR10 MG GT; +METOPROLOL TART50 MG GT; +MYAMBUTOL400 MG ORAL; +PZA500 M1 ORAL; +RIFAMPIN150 MG ORAL; +VITAMIN B650 M1 ORAL
[2018-05-27] MEDS ORDERED: Piperacillin/Tazobactam 3.375 GM in NS 110 ML IVPB ONE (04:00)
[2018-05-27] MEDS ORDERED: Folic Acid 1 MG, Magnesium Sulfate 2,000 MG, Multivitamin - 12 Injection 10 ML, Thiamin... IV ONE ×5 (04:00)
[2018-05-27 04:23] LABS: BILIRUBIN, URINE NEGATIVE (NEGATIVE); GLUCOSE, URINE (UA) NEGATIVE (NEGATIVE); KETONES,URINE NEGATIVE (NEGATIVE); LEUKOCYTE ESTERASE ,URINE 3+ (NEGATIVE); MEAN CORPUSCULAR VOLUME 78 FL (80-99); NITRITE,URINE NEGATIVE (NEGATIVE); PH,URINE 6.5 (4.5-8.0); PLATELET COUNT 337 K/UL (150-450); PROTEIN,URINE 3+ (NEGATIVE); RED BLOOD COUNT 4.46 M/UL (4.70-6.10); RED CELL DISTRIBUTION WIDTH 16.8 % (11.6-14.8); UROBILINOGEN,URINE 1 MG/DL (0.0-1.0); WHITE BLOOD COUNT 12.1 K/UL (4.8-10.8)
[2018-05-27] MEDS ORDERED: Acetaminophen 650 MG SUPP RECTAL ONE (04:30)
[2018-05-27 04:36] LABS: ANION GAP 8 mmol/L (5-15); BLOOD UREA NITROGEN 25 mg/dL (7-18); CALCIUM 9.4 MG/DL (8.5-10.1); CARBON DIOXIDE 29 MMOL/L (21-32); CHLORIDE 103 MMOL/L (98-107); CREATININE 0.7 MG/DL (0.55-1.30); POTASSIUM 5.2 MMOL/L (3.5-5.1); SODIUM 139 MMOL/L (136-145)
[2018-05-27 04:37] LABS: APPEARANCE,URINE SLIGHTLY CLOUDY; COLOR,URINE YELLOW
[2018-05-27] MEDS ORDERED: Folic Acid 5mg/ml Vial IV ONE (04:44)
[2018-05-27] MEDS ORDERED: Thiamine HCl 100mg/ml 2 ml Inj ONE (04:44)
[2018-05-27] MEDS ORDERED: MVI-12 10ml Inj IV ONE (04:45)
[2018-05-27 04:50] LABS: ALANINE AMINOTRANSFERASE 18 U/L (12-78); ALBUMIN 2.1 G/DL (3.4-5.0); ALBUMIN/GLOBULIN RATIO 0.4 (1.0-2.7); ALKALINE PHOSPHATASE 444 U/L (46-116); ASPARTATE AMINO TRANSFERASE 48 U/L (15-37); BILIRUBIN,TOTAL 0.6 MG/DL (0.2-1.0); CKMB 0.6 NG/ML (0.0-3.6); CREATINE KINASE 36 U/L (26-308); PHOSPHORUS 4.9 MG/DL (2.5-4.9)
--- NOTE | 2018-05-27 06:00 | Emergency Room Report ---
History of Present Illness General Chief Complaint: Seizure Present Illness HPI Patient is a 72-year-old male brought in by EMS after witnessed seizure. Patient was given 5 mg of Versed IV by EMS. Patient had prior history of tuberculosis. The patient is actively being treated with vancomycin. Patient was noted to be on tuberculosis medications.Patient prior history of seizure disorder as well as encephalopathy. Patient is chronically ventilator and tracheostomy dependent. Allergies: Coded Allergies: No Known Allergies (Unverified , 01/27/17) Patient History Past Medical History: see triage record Reviewed Nursing Documentation: PMH: Agreed; PSxH: Agreed Nursing Documentation-PMH Hx Cardiac Problems: Yes - tachycardia. Hyperlipidemia. Hx Hypertension: Yes Hx Cancer: No Hx Gastrointestinal Problems: Yes - Dysphagia. GERD. Hx Neurological Problems: Yes - syphilis, encephalopathy Hx Cerebrovascular Accident: Yes Hx Transient Ischemic Attacks: Yes Hx Dementia: Yes Hx Seizures: Yes Hx Syncope: Yes Review of Systems All Other Systems: limited - by mental status Physical Exam Vital Signs Date Time Temp Pulse Resp B/P (MAP) Pulse Ox O2 Delivery O2 Flow Rate FiO2 05/27/18 03:33 115 20 118/53 98 T-piece 15.0 05/27/18 04:19 40 05/27/18 04:54 102.9 Sp02 EP Interpretation: reviewed, normal General Appearance: alert, cachetic, Chronically Ill Head: atraumatic ENT: normal ENT inspection, dry mucus membranes Neck: normal inspection, supple, no bony tend, limited range of motion Respiratory: normal inspection, lungs clear, normal breath sounds, no respiratory distress, no retraction, no wheezing Cardiovascular #1: no edema, tachycardia Gastrointestinal: normal inspection, non tender, soft, no guarding, no hernia Genitourinary: no CVA tenderness Musculoskeletal: normal inspection, back normal, normal range of motion Neurologic: EOM palsy, motor weakness, other - aphasic, no seizures noted Psychiatric: normal inspection, judgement/insight normal, mood/affect normal Skin: normal color, no rash Procedures Critical Care Time Critical Care Time Patient had a critical medical condition which untreated could potentially result in life or limb threatening injury. Total critical care time excluding procedures approximately 45 minutes. Medical Decision Making Diagnostic Impression: Primary Impression: Epileptic seizure, generalized Additional Impressions: UTI (urinary tract infection), bacterial Severe sepsis ER Course Patient presented for fever and seizure.. Differential diagnosis included wasn' t limited to pneumonia, urinary tract infection, drug fever, allergic reaction, sepsis, cholecystitis, among others.Because of complexity of patient's case laboratory testing and imaging studies were ordered.The patient was noted to have evidence of urinary infection. Patient was noted to have a history of seizures in the past. He had no seizure activity after being given Versed by EMS. The patient was initially noted be febrile with 102 temperature. He started on IV fluids as well as IV antibiotics after blood cultures are obtained.Dr. Jarrod Vásquez was contacted for inpatient management due to primary care physician Labs Test 05/27/18 03:46 05/27/18 04:00 Arterial Blood pH 7.338 (7.350-7.450) Arterial Blood Partial Pressure CO2 57.0 mmHg (35.0-45.0) Arterial Blood Partial Pressure O2 101.7 mmHg (75.0-100.0) Arterial Blood HCO3 29.9 mmol/L (22.0-26.0) Arterial Blood Oxygen Saturation 97.0 % (95-100) Arterial Blood Base Excess 3.1 (-2-2) Derek Test Positive White Blood Count 12.1 K/UL (4.8-10.8) Red Blood Count 4.46 M/UL (4.70-6.10) Hemoglobin 11.0 G/DL (14.2-18.0) Hematocrit 35.0 % (42.0-52.0) Mean Corpuscular Volume 78 FL (80-99) Mean Corpuscular Hemoglobin 24.6 PG (27.0-31.0) Mean Corpuscular Hemoglobin Concent 31.4 G/DL (32.0-36.0) Red Cell Distribution Width 16.8 % (11.6-14.8) Platelet Count 337 K/UL (150-450) Mean Platelet Volume 5.1 FL (6.5-10.1) Neutrophils (%) (Auto) % (45.0-75.0) Lymphocytes (%) (Auto) % (20.0-45.0) Monocytes (%) (Auto) % (1.0-10.0) Eosinophils (%) (Auto) % (0.0-3.0) Basophils (%) (Auto) % (0.0-2.0) Urine Color Yellow Urine Appearance Slightly cloudy Urine pH 6.5 (4.5-8.0) Urine Specific [place] 1.015 (1.005-1.035) Urine Protein 3+ (NEGATIVE) Urine Glucose (UA) Negative (NEGATIVE) Urine Ketones Negative (NEGATIVE) Urine Blood 3+ (NEGATIVE) Urine Nitrite Negative (NEGATIVE) Urine Bilirubin Negative (NEGATIVE) Urine Urobilinogen 1 MG/DL (0.0-1.0) Urine Leukocyte Esterase 3+ (NEGATIVE) Urine RBC 10-15 /HPF (0 - 0) Urine WBC 40-60 /HPF (0 - 0) Urine Squamous Epithelial Cells Few /LPF (NONE/OCC) Urine Bacteria Moderate /HPF (NONE) Urine Coarse Granular Casts 0-2 /LPF (NONE) Urine Yeast Few /HPF (NONE) Sodium Level 139 MMOL/L (136-145) Potassium Level 5.2 MMOL/L (3.5-5.1) Chloride Level 103 MMOL/L (98-107) Carbon Dioxide Level 29 MMOL/L (21-32) Anion Gap 8 mmol/L (5-15) Blood Urea Nitrogen 25 mg/dL (7-18) Creatinine 0.7 MG/DL (0.55-1.30) Estimat Glomerular Filtration Rate mL/min (>60) Glucose Level 102 MG/DL (74-106) Lactic Acid Level 2.40 mmol/L (0.4-2.0) Calcium Level 9.4 MG/DL (8.5-10.1) Phosphorus Level 4.9 MG/DL (2.5-4.9) Magnesium Level 1.8 MG/DL (1.8-2.4) Total Bilirubin 0.6 MG/DL (0.2-1.0) Aspartate Amino Transf (AST/SGOT) 48 U/L (15-37) Alanine Aminotransferase (ALT/SGPT) 18 U/L (12-78) Alkaline Phosphatase 444 U/L (46-116) Total Creatine Kinase 36 U/L (26-308) Creatine Kinase MB 0.6 NG/ML (0.0-3.6) Creatine Kinase MB Relative Index 1.6 Troponin I 0.014 ng/mL (0.000-0.056) Pro-B-Type Natriuretic Peptide 614 pg/mL (0-125) Total Protein 7.9 G/DL (6.4-8.2) Albumin 2.1 G/DL (3.4-5.0) Globulin 5.8 g/dL Albumin/Globulin Ratio 0.4 (1.0-2.7) EKG Diagnostic Results Rate: tachycardiac - 123 Rhythm: NSR ST Segments: no acute changes Last Vital Signs Date Time Temp Pulse Resp B/P (MAP) Pulse Ox O2 Delivery O2 Flow Rate FiO2 05/27/18 04:54 102.9 05/27/18 04:19 128 17 Mechanical Ventilator 40 05/27/18 03:33 118/53 98 15.0 Status: improved Disposition: ADMITTED INPATIENT Condition: Serious Referrals: Jarrod Vásquez MD (PCP) Minesh West MD May 27, 2018 06:00
[2018-05-27] MEDS ORDERED: Fleet's Enema 133ml RECTAL PRN (06:15)
[2018-05-27] MEDS ORDERED: Artificial Tears 1.4% Op Soln BOTH EYES PRN (06:15)
[2018-05-27] MEDS ORDERED: Sennosides 8.6mg tab ORAL PRN ×2 (06:15)
[2018-05-27] MEDS ORDERED: Albuterol/Ipratropium 3ml neb ONE (06:43)
[2018-05-27] MEDS: Doxazosin 1mg Tab ORAL SCH (09:00)
[2018-05-27] MEDS ORDERED: Albuterol/Ipratropium 3ml neb HHN SCH (09:00)
[2018-05-27] MEDS ORDERED: LORazepam Inj 2mg/ml 1ml IV PRN (09:30)
[2018-05-27] MEDS: Multivitamin w/Minerals tab ORAL SCH (09:51)
[2018-05-27] MEDS: Metoprolol Tartrate 50mg tab ORAL SCH ×2 (09:52→20:54)
[2018-05-27] MEDS: Aspirin Baby 81mg ORAL SCH (09:53)
[2018-05-27] MEDS: Isoniazid 300mg tab ORAL SCH (09:53)
[2018-05-27] MEDS: Ascorbic Acid 500mg tab ORAL SCH (10:11)
[2018-05-27] MEDS: Pyridoxine 50mg tab ORAL SCH (10:11)
[2018-05-27] MEDS: levETIRAcetam 1,000mg/NS100ml 100 ML IVPB SCH ×2 (10:12→20:53)
[2018-05-27] MEDS: Albuterol/Ipratropium 3ml neb HHN SCH ×4 (10:51→23:28)
--- NOTE | 2018-05-27 10:56 | Diagnostic Imaging Report ---
Indication: Dyspnea Comparison: 05/14/2018 A single view chest radiograph was obtained. Findings: Retrocardiac opacity noted. Tracheostomy noted. Heart size is normal. IMPRESSION: New left basal infiltrate versus atelectasis.
[2018-05-27] MEDS: Minocycline HCl 50mg cap ORAL SCH ×2 (12:30→21:31)
--- NOTE | 2018-05-27 17:15 | Consultation ---
DATE OF CONSULTATION: 05/27/2018 INFECTIOUS DISEASES CONSULTATION CONSULTING PHYSICIAN: Sergio Urban M.D. REFERRING PHYSICIAN: Jarrod Vásquez M.D. REASON FOR CONSULTATION: Fever. HISTORY OF PRESENTING ILLNESS: This is a 72-year-old gentleman with history of respiratory failure status post tracheostomy, hypertension, CVA, seizures who came in with seizure. 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 An Infectious Diseases consultation has been obtained for antibiotics. PAST MEDICAL HISTORY: 1. History of hypertension. 2. History of dysphagia status post . 3. Syphilis. 4. CVA. 5. TIA. 6. Seizures. SOCIAL HISTORY: Unknown. FAMILY HISTORY: Unknown. REVIEW OF SYSTEMS: Unable to obtain currently. MEDICATIONS: As an inpatient, he is on atorvastatin, Flomax, albuterol, ipratropium, levetiracetam, lorazepam, amlodipine, ascorbic acid, aspirin, doxazosin, famotidine, isoniazid, metoprolol, midodrine, multivitamin, pyrazinamide, , rifampin, Tylenol, Dulcolax, Artificial Tears, senna. ALLERGIES: No known drug allergies. PHYSICAL EXAMINATION: VITAL SIGNS: Temperature , T-max of 102.9, pulse of 116, respiratory rate 23, blood pressure 155/70, O2 saturation of 98%. HEENT: Pupils equally reactive to light and accommodation. Mouth appears clean without thrush. NECK: Supple. No adenopathy. No JVD. Tracheostomy site appears clean. CARDIOVASCULAR: Regular rate and rhythm. No murmurs. LUNGS: Clear to auscultation bilaterally. No crackles. No wheezes. ABDOMEN: Soft and nontender. No organomegaly. G-tube site appears clean. EXTREMITIES: No cyanosis, no clubbing, no edema. LABORATORY AND DIAGNOSTIC DATA: White count 12.4, hemoglobin 11, hematocrit 35, MCV 78, platelet count of 337. Sodium 139, potassium 5.2, chloride 103, bicarb 29, BUN 25, creatinine 0.7, glucose 102. Calcium 9.4. Total bilirubin 0.6, AST 48, ALT 14, and alkaline phosphatase 444. CK 36 and CK-MB 0.6. Beta natriuretic peptide 614. Total protein 7.1 and albumin 2.1. UA showing 40 to 60 white cells. Sputum cultures from 05/15/2018 showing Acinetobacter, which was susceptible to polymyxin, minocycline, and E. coli ESBL which is susceptible to imipenem, piperacillin and tazobactam. Urine cultures from 05/14/2018 growing E coli, which is susceptible to ertapenem, imipenem, tigecycline. Chest x-ray showing new left base infiltrate versus atelectasis. ASSESSMENT: This is a 72-year-old gentleman with history of pulmonary tuberculosis, respiratory failure status post tracheostomy, seizures who comes in with seizures and has fevers, now could have aspiration pneumonia. 1. Pulmonary tuberculosis. 2. Urinary tract infection. PLAN: 1. We will order sputum cultures as well as urine cultures. 2. We will start the patient on meropenem and minocycline. 3. We will restart ethambutol. 4. We will follow up cultures and adjust antibiotics accordingly. I would like to thank, Dr. Vásquez for this consultation. Sergio Urban M.D. DR: Tanya JOB#: [id number] CC: Jarrod Vásquez M.D.
--- NOTE | 2018-05-27 18:21 | Consultation ---
Consult Note Consult Note DATE OF CONSULTATION: 05/27/2018 NEUROLOGY CONSULTATION CONSULTING PHYSICIAN: Mercedes Garcia M.D. REQUESTING PHYSICIAN: Jarrod Vásquez M.D. HISTORY: Mr. Sagar Narvaez is a 72-year-old, Citizen Of [place] gentleman, of unknown handedness, who does have a past history of a stroke, pulmonary tuberculosis, chronic respiratory failure for which he has a tracheostomy, dysphagia for which he has a G-tube placed, and severe chronic debility as a result of which he lives in a long term. He was functioning relatively well at his long term until 04/27/2018. He was brought into the [facility] emergency room for change in mental state where he became poorly responsive. He was watched on the telemetry unit where he spiked a fever to 103 degrees Fahrenheit and then had multiple seizures. He was given Ativan, cooled down and started on Keppra and following that was seizure-free. He was recently sent back to a long term where he had breakthrough seizures and he was thus sent back to [facility] and admitted. At this point in time, he is poorly responsive and unable to communicate in any manner. He was given Ativan for his seizures recently. PAST MEDICAL HISTORY: Significant for stroke in the near past, pulmonary tuberculosis, chronic respiratory failure with a tracheostomy, dysphagia with G-tube placement, seizure disorder. FAMILY HISTORY: Nothing significant as per the chart. PERSONAL HISTORY: Home: He lives in long term. Work: He is unemployed. Habits: None at this point in time. PHYSICAL EXAMINATION: GENERAL: He is a well-developed, ill-looking black gentleman, lying in an ICU bed, in no acute distress. VITAL SIGNS: Pulse 96/minute, blood pressure 96/52 mmHg, respirations 25/minute, temperature 98.1 degrees Fahrenheit. HEAD: Normocephalic and atraumatic. EENT: Examination benign. NECK: No neck rigidity was observed. NEUROLOGICAL EXAMINATION: MENTAL STATUS EXAMINATION: He could not be aroused even on deep pain. Further mental status testing was impossible. SPEECH: Could not be tested. LANGUAGE: Could not be tested. CRANIAL NERVE EXAMINATION: II: He did not blink to threat. III, IV & : External ocular movements were present on oculocephalic maneuvers. The pupils were 3 mm in diameter, equal, round, regular, and reactive sluggishly to light. V & VII: The corneal reflexes were present bilaterally. However, the right-sided reflex was significantly diminished compared to the left. VIII: He did not respond to loud sounds and had no nystagmus. IX & X: Gag reflex was suppressed. XI: The sternocleidomastoids and trapezii functioned minimally. XII: The tongue was in the midline. MOTOR SYSTEM: The tone was increased in all four extremities with spasticity more marked on the right than on the left. Examination of muscle mass revealed generalized muscle wasting, again more marked on the right than on the left. He did not move any of his extremities even on deep pain. SENSORY EXAMINATION: He did not respond even on deep pain. REFLEXES: Trace+ and bilaterally symmetrical at the biceps, triceps, brachioradialis. 0 at both knees and ankles. The plantar responses were extensor bilaterally. COORDINATION, STANCE & GAIT: Could not be tested. SEIZURE: A seizure was witnessed by me he had eye deviation to the right followed by clonic movements of the right face lasting 30 seconds. DIAGNOSTIC IMPRESSION: 1. Mr. Sagar Narvaez is a 72-year-old, Citizen [place] gentleman, of unknown handedness, who does have a past history of cerebrovascular disease with a prior stroke, pulmonary tuberculosis, chronic respiratory failure for which he has tracheostomy, and dysphagia for which he has a gastrostomy; who lives in long term where he was noted to have an alteration in his mental state and multiple seizures. 2. He was brought in by the paramedics and has since been hospitalized. He was given a fe doses of Ativan and was also given Versed in the ambulance. 3. On neurological examination, at this time, he cannot be aroused even on deep pain. His corneal reflex is diminished on the right side compared to the left. He does not move any of his extremities even on deep pain. His deep tendon reflexes are globally diminished and his plantar responses are extensor bilaterally. 4. Laboratory data reveal a leukocytosis and findings consistent with a UTI. 5. 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 His recent breakthrough seizures are most probably due to his acute UTI. RECOMMENDATIONS: 1. Agree with management thus far. 2. Continue Keppra 1000 mg q 12 hours. 3. Extra does of Keppra 1000 mg IV now. 4. Aggressive treatment of UTI. 5. Observe in ICU. Thank you for entrusting me with the care Mr. Narvaez. I shall follow him with you. Mercedes Garcia M.D., M.S.P.H. MERCEDES GARCIA May 27, 2018 18:21
[2018-05-27] MEDS ORDERED: levETIRAcetam 1,000mg/NS100ml 100 ML IVPB SCH (18:30)
--- NOTE | 2018-05-27 19:35 | Cardiology Report ---
APPROVED REPORT EKG Measurement Heart [id number] WI [id number] [id number] Sinus tachycardia Left ventricular hypertrophy with repolarization abnormality Cannot rule out Septal infarct, age undetermined Inferior infarct, age undetermined Abnormal ECG
--- NOTE | 2018-05-27 19:48 | Pulmonology Progress Note ---
Subjective Allergies: Coded Allergies: No Known Allergies (Unverified , 01/27/17) Objective Last 24 Hour Vital Signs Date Time Temp Pulse Resp B/P (MAP) Pulse Ox O2 Delivery O2 Flow Rate FiO2 05/27/18 19:15 98 13 100 Mechanical Ventilator 40 05/27/18 19:03 88 19 100 Mechanical Ventilator 40 05/27/18 19:03 88 19 40 05/27/18 19:00 113 23 120/70 (87) 97 05/27/18 18:00 118 23 135/67 (89) 98 05/27/18 17:26 117 24 40 05/27/18 17:00 115 22 112/70 (84) 98 05/27/18 16:00 98.1 113 20 133/77 (95) 98 98.1 05/27/18 16:00 40 05/27/18 16:00 Mechanical Ventilator 05/27/18 16:00 118 05/27/18 15:00 118 23 143/70 (94) 98 05/27/18 14:36 127 17 40 05/27/18 14:35 Mechanical Ventilator 40 05/27/18 14:35 Mechanical Ventilator 40 05/27/18 14:00 116 23 140/69 (92) 98 05/27/18 13:00 110 23 127/72 (90) 98 05/27/18 12:32 100 16 40 05/27/18 12:00 40 05/27/18 12:00 98.1 113 20 135/77 (96) 98 98.1 05/27/18 12:00 Mechanical Ventilator 05/27/18 12:00 113 05/27/18 11:00 116 23 155/70 (98) 98 05/27/18 10:57 100 12 100 Mechanical Ventilator 40 05/27/18 10:52 112 12 99 Mechanical Ventilator 40 05/27/18 10:49 111 16 40 05/27/18 10:22 95.0 05/27/18 10:00 117 26 152/80 (104) 98 05/27/18 09:53 121 156/86 05/27/18 09:52 121 156/86 05/27/18 09:52 95.0 05/27/18 09:00 120 25 160/79 (106) 98 05/27/18 08:45 121 20 40 05/27/18 08:00 Mechanical Ventilator 05/27/18 08:00 40 05/27/18 08:00 120 05/27/18 08:00 97.5 115 26 149/92 (111) 98 97.5 05/27/18 07:44 Mechanical Ventilator 05/27/18 07:21 118 20 40 05/27/18 07:11 107 12 100 Mechanical Ventilator 40 05/27/18 07:00 95.0 107 12 156/86 100 Mechanical Ventilator 15.0 40 95.0 05/27/18 06:55 108 12 40 05/27/18 06:49 112 12 100 Mechanical Ventilator 40 05/27/18 06:14 95.0 102 20 150/80 99 Mechanical Ventilator 15.0 40 95.0 05/27/18 05:40 103 19 40 05/27/18 05:30 95.0 105 19 161/91 100 Mechanical Ventilator 15.0 40 95.0 05/27/18 04:54 102.9 05/27/18 04:30 100.5 116 17 152/73 100 Mechanical Ventilator 15.0 40 100.5 05/27/18 04:19 128 17 Mechanical Ventilator 40 05/27/18 04:19 128 17 40 05/27/18 03:40 102.9 109 18 153/74 100 Mechanical Ventilator 102.9 05/27/18 03:40 105 18 05/27/18 03:33 115 20 118/53 98 T-piece 15.0 Intake and Output 05/26/18 05/27/18 19:00 07:00 Output Total 100 ml Balance -100 ml Output Urine Total 100 ml Microbiology Date/Time Source Procedure Growth Status 05/27/18 04:00 Sputum Gram Stain - Final Resulted 05/27/18 04:00 Sputum Sputum Culture Pending Resulted 05/27/18 07:40 Rectum Received Laboratory Tests 05/27/18 03:46: Arterial Blood pH 7.338L, Arterial Blood Partial Pressure CO2 57.0*H, Arterial Blood Partial Pressure O2 101.7H, Arterial Blood HCO3 29.9H, Arterial Blood Oxygen Saturation 97.0, Arterial Blood Base Excess 3.1H, Derek Test Positive 05/27/18 04:00: White Blood Count 12.1H, Red Blood Count 4.46L, Hemoglobin 11.0L, Hematocrit 35.0L, Mean Corpuscular Volume 78L, Mean Corpuscular Hemoglobin 24.6L, Mean Corpuscular Hemoglobin Concent 31.4L, Red Cell Distribution Width 16.8H, Platelet Count 337, Mean Platelet Volume 5.1L, Neutrophils (%) (Auto) , Lymphocytes (%) (Auto) , Monocytes (%) (Auto) , Eosinophils (%) (Auto) , Basophils (%) (Auto) , Urine Color Yellow, Urine Appearance Slightly cloudy, Urine pH 6.5, Urine Specific [place] 1.015, Urine Protein 3+H, Urine Glucose (UA ) Negative, Urine Ketones Negative, Urine Blood 3+H, Urine Nitrite Negative, Urine Bilirubin Negative, Urine Urobilinogen 1H, Urine Leukocyte Esterase 3+H, Urine RBC 10-15H, Urine WBC 40-60H, Urine Squamous Epithelial Cells Few, Urine Bacteria ModerateH, Urine Coarse Granular Casts 0-2H, Urine Yeast FewH, Sodium Level 139, Potassium Level 5.2H, Chloride Level 103, Carbon Dioxide Level 29, Anion Gap 8, Blood Urea Nitrogen 25H, Creatinine 0.7, Estimat Glomerular Filtration Rate , Glucose Level 102, Lactic Acid Level 2.40H, Calcium Level 9.4 , Phosphorus Level 4.9, Magnesium Level 1.8, Total Bilirubin 0.6, Aspartate Amino Transf (AST/SGOT) 48H, Alanine Aminotransferase (ALT/SGPT) 18, Alkaline Phosphatase 444H, Total Creatine Kinase 36, Creatine Kinase MB 0.6, Creatine Kinase MB Relative Index 1.6, Troponin I 0.014, Pro-B-Type Natriuretic Peptide 614H, Total Protein 7.9, Albumin 2.1L, Globulin 5.8, Albumin/Globulin Ratio 0.4L 05/27/18 11:25: Lactic Acid Level 2.20 Current Medications Medications (Trade) Dose Ordered Sig/Iram Route PRN Reason Start Time Stop Time Status Last Admin Dose Admin Acetaminophen (Tylenol) 650 mg Q4H PRN ORAL Fever/Headache/Mild Pain 05/27/18 06:15 06/26/18 06:14 05/27/18 09:52 Albuterol/ Ipratropium (Albuterol/ Ipratropium) 3 ml Q4HRT HHN 05/27/18 11:00 06/01/18 08:59 05/27/18 19:03 Amlodipine Besylate (Norvasc) 10 mg DAILY ORAL 05/27/18 09:00 06/26/18 08:59 10/23/18 09:53 Artificial Tears (Akwa-Tears) 2 drop FIVE TIMES A DAY PRN BOTH EYES Dry Eyes 05/27/18 06:15 06/26/18 06:14 Ascorbic Acid (Vitamin C) 250 mg DAILY ORAL 05/27/18 09:00 06/26/18 08:59 05/27/18 10:11 Aspirin (ASA) 81 mg DAILY ORAL 05/27/18 09:00 06/26/18 08:59 05/27/18 09:53 Atorvastatin Calcium (Lipitor) 10 mg BEDTIME ORAL 05/27/18 21:00 06/26/18 20:59 Bisacodyl (Dulcolax) 10 mg PRN PRN RECTAL DAILY 05/27/18 06:15 06/26/18 06:14 05/27/18 09:52 Doxazosin Mesylate (Cardura) 1 mg DAILY ORAL 05/27/18 09:00 06/26/18 08:59 05/27/18 09:00 Ethambutol HCl (Myambutol) 800 mg DAILY ORAL 05/27/18 12:30 06/26/18 12:29 05/27/18 12:30 Famotidine (Pepcid) 20 mg DAILY ORAL 05/27/18 09:00 06/26/18 08:59 05/27/18 09:53 Isoniazid (Inh) 300 mg DAILY ORAL 05/27/18 09:00 06/26/18 08:59 05/27/18 09:53 Levetiracetam 100 ml @ 400 mls/hr Q12HR IVPB 05/27/18 09:30 06/26/18 09:29 05/27/18 10:12 Lorazepam (Ativan 2mg/ml 1ml) 2 mg Q1H PRN IV For Seizures 05/27/18 09:30 06/03/18 09:29 05/27/18 17:44 Meropenem 500 mg/ Sodium Chloride 50 ml @ 100 mls/hr Q8HR IVPB 05/27/18 14:00 06/01/18 13:59 05/27/18 14:00 Metoprolol Tartrate (Lopressor) 50 mg Q12HR ORAL 05/27/18 09:00 06/26/18 08:59 05/27/18 09:52 Midodrine (Pro-Amatine) 2.5 mg THREE TIMES A DAY ORAL 05/27/18 09:00 06/26/18 08:59 Minocycline HCl (Minocin) 100 mg Q12HR ORAL 05/27/18 12:30 06/03/18 12:29 05/27/18 12:30 Multivitamins Therapeutic (Therapeutic Multivitamin) 1 ea DAILY ORAL 05/27/18 09:00 06/26/18 08:59 05/27/18 09:51 Pyrazinamide (Pza) 1,000 mg DAILY ORAL 05/27/18 09:00 06/26/18 08:59 05/27/18 09:52 Pyridoxine HCl (Vitamin B6) 50 mg DAILY ORAL 05/27/18 09:00 06/26/18 08:59 05/27/18 10:11 Rifampin (Rifadin) 600 mg DAILY ORAL 05/27/18 09:00 06/26/18 08:59 05/27/18 09:53 Sennosides (Senokot) 1 tab BID PRN ORAL Constipation 05/27/18 06:15 06/26/18 06:14 Sennosides (Senokot) 2 tab BID PRN ORAL Constipation 05/27/18 06:15 06/26/18 06:14 Sodium Phosphate (Fleet's Sodium Phosl Enema) 133 ml PRN PRN RECTAL Q 2 DAYS 05/27/18 06:15 06/26/18 06:14 Tamsulosin HCl (Flomax) 0.4 mg BEDTIME ORAL 05/27/18 21:00 06/26/18 20:59 Nakul Cisse MD May 27, 2018 19:48
--- NOTE | 2018-05-27 19:49 | Consultation ---
Consult Note Consult Note 72-year-old male with multiple medical problems including stroke and respiratory failure, presents with active seizures. The patient with history of tracheostomy and respiratory failure. The patient with recent hospitalization at [facility] where he was diagnosed with pulmonary tuberculosis and recent hospitalization at [place] for prolonged respiratory failure. The patient was unable to wean off the respirator and was transferred to subacute. Patient is G-tube/trach/vent dependent. Patient was noted to be actively seizing and controlled in the ER but remains less responsive. The patient was brought in for evaluation for ongoing management. I was called to assist with pulmonary status and further evaluation recommendations. The patient chart was reviewed. The care discussed with the primary MD. The patient currently comfortable on the ventilator care and chart discussed PMH Aspiration pneumonia Fungal UTI Respiratory failure with hypoxemia Dysphagia, status post PEG Malfunctioning G-tube ,status post replacement Hypoxemia Cerebrovascular disease with dementia Chronic diastolic congestive heart failure Electrolyte abnormalities: hypokalemia ,hypomagnesemia ,hyponatremia Microcytic anemia, suspecting blood loss Abnormal LFT Severe protein calorie malnutrition Seizure disorder BPH MEDS reviewed and reconciled SOCIAL HISTORY snf patient; disabled ROS unable PHYSICAL Sp02 EP Interpretation: reviewed, normal General Appearance: chronically ill appearing Head: normocephalic, atraumatic Eyes: bilateral eye normal inspection ENT: dry Neck: trach, carotid 2+ Respiratory: decreased breath sounds, scattered rhonchi bilaterally; no wheeze Cardiovascular : regular rate, rhythm, no murmur without MRG Gastrointestinal: non tender, soft, non-distended, no guarding, no rebound; GT Musculoskeletal: no CCE poorly responsive skin noted Labs Test 05/27/18 03:46 05/27/18 04:00 05/27/18 11:25 Arterial Blood pH 7.338 (7.350-7.450) Arterial Blood Partial Pressure CO2 57.0 mmHg (35.0-45.0) Arterial Blood Partial Pressure O2 101.7 mmHg (75.0-100.0) Arterial Blood HCO3 29.9 mmol/L (22.0-26.0) Arterial Blood Oxygen Saturation 97.0 % (95-100) Arterial Blood Base Excess 3.1 (-2-2) Derek Test Positive White Blood Count 12.1 K/UL (4.8-10.8) Red Blood Count 4.46 M/UL (4.70-6.10) Hemoglobin 11.0 G/DL (14.2-18.0) Hematocrit 35.0 % (42.0-52.0) Mean Corpuscular Volume 78 FL (80-99) Mean Corpuscular Hemoglobin 24.6 PG (27.0-31.0) Mean Corpuscular Hemoglobin Concent 31.4 G/DL (32.0-36.0) Red Cell Distribution Width 16.8 % (11.6-14.8) Platelet Count 337 K/UL (150-450) Mean Platelet Volume 5.1 FL (6.5-10.1) Neutrophils (%) (Auto) % (45.0-75.0) Lymphocytes (%) (Auto) % (20.0-45.0) Monocytes (%) (Auto) % (1.0-10.0) Eosinophils (%) (Auto) % (0.0-3.0) Basophils (%) (Auto) % (0.0-2.0) Urine Color Yellow Urine Appearance Slightly cloudy Urine pH 6.5 (4.5-8.0) Urine Specific [place] 1.015 (1.005-1.035) Urine Protein 3+ (NEGATIVE) Urine Glucose (UA) Negative (NEGATIVE) Urine Ketones Negative (NEGATIVE) Urine Blood 3+ (NEGATIVE) Urine Nitrite Negative (NEGATIVE) Urine Bilirubin Negative (NEGATIVE) Urine Urobilinogen 1 MG/DL (0.0-1.0) Urine Leukocyte Esterase 3+ (NEGATIVE) Urine RBC 10-15 /HPF (0 - 0) Urine WBC 40-60 /HPF (0 - 0) Urine Squamous Epithelial Cells Few /LPF (NONE/OCC) Urine Bacteria Moderate /HPF (NONE) Urine Coarse Granular Casts 0-2 /LPF (NONE) Urine Yeast Few /HPF (NONE) Sodium Level 139 MMOL/L (136-145) Potassium Level 5.2 MMOL/L (3.5-5.1) Chloride Level 103 MMOL/L (98-107) Carbon Dioxide Level 29 MMOL/L (21-32) Anion Gap 8 mmol/L (5-15) Blood Urea Nitrogen 25 mg/dL (7-18) Creatinine 0.7 MG/DL (0.55-1.30) Estimat Glomerular Filtration Rate mL/min (>60) Glucose Level 102 MG/DL (74-106) Lactic Acid Level 2.40 mmol/L (0.4-2.0) 2.20 mmol/L (0.66-2.22) Calcium Level 9.4 MG/DL (8.5-10.1) Phosphorus Level 4.9 MG/DL (2.5-4.9) Magnesium Level 1.8 MG/DL (1.8-2.4) Total Bilirubin 0.6 MG/DL (0.2-1.0) Aspartate Amino Transf (AST/SGOT) 48 U/L (15-37) Alanine Aminotransferase (ALT/SGPT) 18 U/L (12-78) Alkaline Phosphatase 444 U/L (46-116) Total Creatine Kinase 36 U/L (26-308) Creatine Kinase MB 0.6 NG/ML (0.0-3.6) Creatine Kinase MB Relative Index 1.6 Troponin I 0.014 ng/mL (0.000-0.056) Pro-B-Type Natriuretic Peptide 614 pg/mL (0-125) Total Protein 7.9 G/DL (6.4-8.2) Albumin 2.1 G/DL (3.4-5.0) Globulin 5.8 g/dL Albumin/Globulin Ratio 0.4 (1.0-2.7) IMPRESSION respiratory failure seizure possible sepsis chronic encephalopathy protein calorie malnutrition trach leukocytosis pulmonary TB debility hypoxemia htn PLAN ID reviewed neuro noted care noted IV antibiotics respiratory care as is aspiration precautions supportive care and monitor suction PRN follow clinically oxygen therapy vent management prognosis guarded acute and requires ICU care Nakul Cisse MD May 27, 2018 19:49
--- NOTE | 2018-05-27 20:15 | History and Physical Report ---
DATE OF ADMISSION: 05/27/2018 CHIEF COMPLAINT: Sepsis and seizures. HISTORY OF PRESENT ILLNESS: The patient is an unfortunate 72-year-old male. He has prior history of stroke, chronic respiratory failure, anemia. He has history of hemoptysis, pulmonary tuberculosis, chronic kidney disease, encephalopathy. He was transferred from a shelter facility with complaints of intractable seizures. The patient was stable, but on the day of transfer, he developed intractable seizures. He was transferred by paramedics to [facility]. He had no further seizures. In the emergency room, he was noted to be febrile with temperature 102. He was pancultured. He had evidence of urinary tract infection on urinalysis. Antibiotics were instituted. The patient is now admitted for further evaluation and care. The patient is unable to provide any history as he is nonverbal at baseline. PAST MEDICAL HISTORY: As above. PAST SURGICAL HISTORY: Includes trach and a G-tube. CURRENT MEDICATIONS: Reconciled and reviewed. ALLERGIES: None. FAMILY HISTORY: None. SOCIAL HISTORY: There is no known history of tobacco, ethanol, or drugs. REVIEW OF SYSTEMS: From the patient is unobtainable as he is nonverbal. PHYSICAL EXAMINATION: VITAL SIGNS: Temperature was 102.9, pulse 105, respirations 18, blood pressure 153/74. GENERAL: The patient is a chronically ill-appearing male, in no apparent distress. He is nonverbal. Does not follow commands. HEENT: The head is normocephalic and atraumatic. NECK: Trach was midline and clean. HEART: Regular rate and rhythm. LUNGS: Few rhonchi. ABDOMEN: Soft, nontender, and nondistended. EXTREMITIES: No clubbing, cyanosis, or edema. NEUROLOGIC: The patient is unable to comply for neurologic exam. LABORATORY DATA: UA showed 40-60 wbc's. White count 12, hemoglobin 11, hematocrit 35, and platelets of 337,000. ABG showed pH of 7.33, pCO2 of 57, pO2 of 101, bicarbonate , O2 saturation 97%. Sodium 139, potassium 5.2. Lactic acid was 2.4. Troponin was negative. ASSESSMENT: 1. This is an unfortunate male admitted with complaints of fevers, intractable seizures/status epilepticus likely due to fevers. 2. UTI. 3. Sepsis. 4. History of pulmonary tuberculosis, on four TB medications. 5. Encephalopathy. 6. History of stroke. 7. History of hypertension. 8. Anemia. 9. History of chronic kidney disease. PLAN: IV antibiotics. Continue seizure medications. P.r.n. Ativan for seizures. Continue ventilatory support and respiratory treatments. Continue skin care. Neurology, Cardiology, Pulmonary, Infectious Disease consultations to be obtained. Jarrod Vásquez M.D. DR: Yogesh JOB#: [id number] CC:
[2018-05-27] MEDS: Tamsulosin 0.4mg cap ORAL SCH (20:53)
--- NOTE | 2018-05-27 22:15 | Operative Note - Dictated ---
DATE OF OPERATION: 04/30/2018 GASTROENTEROLOGY PROCEDURE REPORT PROCEDURE: Upper endoscopy with enteroscopy and biopsy. SURGEON: Oli Amaya M.D. ANESTHESIA: Dr. Xiao. PRE-ENDOSCOPIC DIAGNOSIS: Gastrointestinal bleeding. POST-ENDOSCOPIC DIAGNOSES: 1. Status post antrectomy and Billroth II surgical anatomy. 2. Diffuse nonerosive gastritis. 3. Status post biopsy of the antrum. 4. No varices or active bleeding was seen. DESCRIPTION OF PROCEDURE: The procedure, its risks, indications, alternatives, and possible complications were explained and informed consent was obtained. The patient was then sedated in the left lateral decubitus position. A diagnostic upper endoscope was introduced through the oropharynx and advanced to the small bowel. The endoscope was then gradually withdrawn and the mucosa examined carefully. Examination findings are as listed above. The endoscope was removed. The patient was sent to recovery in good condition. COMPLICATIONS: None. RECOMMENDATIONS: 1. Resume oral diet. 2. Follow laboratory parameters. 3. Check biopsy results. Thank you for asking me to participate in the care of this patient. Oli Amaya M.D. DR: Kyler JOB#: [id number] CC: CHRISTEN
[2018-05-28] VITALS (23 sets, daily range): BP systolic 89–146; BP diastolic 43–81
[2018-05-28] MEDS: Albuterol/Ipratropium 3ml neb HHN SCH ×6 (03:27→23:11)
[2018-05-28 06:03] LABS: HEMOGLOBIN 10.1 G/DL (14.2-18.0); MEAN CORPUSCULAR VOLUME 79 FL (80-99); PLATELET COUNT 270 K/UL (150-450); RED BLOOD COUNT 4.06 M/UL (4.70-6.10); RED CELL DISTRIBUTION WIDTH 17.1 % (11.6-14.8); WHITE BLOOD COUNT 14.3 K/UL (4.8-10.8)
[2018-05-28 06:20] LABS: ALANINE AMINOTRANSFERASE 18 U/L (12-78); ALBUMIN 1.9 G/DL (3.4-5.0); ALBUMIN/GLOBULIN RATIO 0.4 (1.0-2.7); ALKALINE PHOSPHATASE 301 U/L (46-116); ANION GAP 14 mmol/L (5-15); ASPARTATE AMINO TRANSFERASE 46 U/L (15-37); BILIRUBIN,TOTAL 0.5 MG/DL (0.2-1.0); BLOOD UREA NITROGEN 37 mg/dL (7-18); CALCIUM 9.3 MG/DL (8.5-10.1); CARBON DIOXIDE 25 MMOL/L (21-32); CHLORIDE 108 MMOL/L (98-107); CREATININE 0.8 MG/DL (0.55-1.30); POTASSIUM 4.1 MMOL/L (3.5-5.1); SODIUM 147 MMOL/L (136-145)
--- NOTE | 2018-05-28 07:32 | General Progress Note ---
Assessment/Plan Problem List: (1) Toxic metabolic encephalopathy ICD Codes: G92 - Toxic encephalopathy SNOMED: 614342626 (2) HTN (hypertension) ICD Codes: I10 - Essential (primary) hypertension SNOMED: 25997132 (3) Aspiration pneumonia ICD Codes: J69.0 - Pneumonitis due to inhalation of food and vomit SNOMED: 283922524 (4) Sepsis ICD Codes: A41.9 - Sepsis, unspecified organism SNOMED: 49699641 (5) Status epilepticus ICD Codes: G40.901 - Epilepsy, unspecified, not intractable, with status epilepticus SNOMED: 795505055 (6) UTI (urinary tract infection), bacterial ICD Codes: N39.0 - Urinary tract infection, site not specified; A49.9 - Bacterial infection, unspecified SNOMED: 948834546 Status: stable, not improved Assessment/Plan ivf adjusted sz rx iv abx check kub GI eval vent support resp rx Subjective ROS Limited/Unobtainable: Yes Constitutional: Reports: malaise, weakness HEENT: Reports: no symptoms Cardiovascular: Reports: no symptoms Respiratory: Reports: shortness of breath Gastrointestinal/Abdominal: Reports: vomiting Genitourinary: Reports: no symptoms Neurologic/Psychiatric: Reports: seizure Endocrine: Reports: no symptoms Hematologic/Lymphatic: Reports: anemia Allergies: Coded Allergies: No Known Allergies (Unverified , 01/27/17) All Systems: reviewed and negative except above Subjective no more szs. +vomiting x 2. not on feeds yet. on the vent. poorly responsive at baseline Objective Last 24 Hour Vital Signs Date Time Temp Pulse Resp B/P (MAP) Pulse Ox O2 Delivery O2 Flow Rate FiO2 05/28/18 06:55 87 14 40 05/28/18 06:54 87 14 100 Mechanical Ventilator 40 05/28/18 06:00 121 25 135/63 (87) 99 05/28/18 05:25 127 14 40 05/28/18 05:00 117 24 135/67 (89) 96 05/28/18 04:00 115 05/28/18 04:00 40 05/28/18 04:00 99.4 117 24 132/61 (84) 96 99.4 05/28/18 04:00 Mechanical Ventilator 05/28/18 03:39 111 15 100 Mechanical Ventilator 40 10/24/18 03:27 111 13 40 05/28/18 03:27 111 13 99 Mechanical Ventilator 40 05/28/18 03:00 112 23 129/63 (85) 100 05/28/18 02:00 100 24 140/65 (90) 100 05/28/18 01:46 103 14 40 05/28/18 01:00 105 24 141/65 (90) 100 05/28/18 00:00 Mechanical Ventilator 05/28/18 00:00 98.7 97 24 142/65 (90) 100 98.7 05/27/18 23:38 85 13 100 Mechanical Ventilator 40 05/27/18 23:28 90 18 40 05/27/18 23:28 90 20 100 Mechanical Ventilator 40 05/27/18 23:00 97 23 105/57 (73) 100 05/27/18 22:00 90 23 113/60 (77) 100 05/27/18 21:15 90 17 40 05/27/18 21:00 91 23 108/57 (74) 100 05/27/18 20:54 93 119/63 05/27/18 20:00 91 05/27/18 20:00 40 05/27/18 20:00 98.5 91 24 100/53 (69) 100 98.5 05/27/18 20:00 Mechanical Ventilator 05/27/18 19:15 98 13 100 Mechanical Ventilator 40 05/27/18 19:03 88 19 100 Mechanical Ventilator 40 05/27/18 19:03 88 19 40 05/27/18 19:00 113 23 120/70 (87) 97 05/27/18 18:00 118 23 135/67 (89) 98 05/27/18 17:26 117 24 40 05/27/18 17:00 115 22 112/70 (84) 98 05/27/18 16:00 98.1 113 20 133/77 (95) 98 98.1 05/27/18 16:00 40 05/27/18 16:00 Mechanical Ventilator 05/27/18 16:00 118 05/27/18 15:00 118 23 143/70 (94) 98 05/27/18 14:36 127 17 40 05/27/18 14:35 Mechanical Ventilator 40 05/27/18 14:35 Mechanical Ventilator 40 05/27/18 14:00 116 23 140/69 (92) 98 05/27/18 13:00 110 23 127/72 (90) 98 05/27/18 12:32 100 16 40 05/27/18 12:00 40 05/27/18 12:00 98.1 113 20 135/77 (96) 98 98.1 05/27/18 12:00 Mechanical Ventilator 05/27/18 12:00 113 05/27/18 11:00 116 23 155/70 (98) 98 05/27/18 10:57 100 12 100 Mechanical Ventilator 40 05/27/18 10:52 112 12 99 Mechanical Ventilator 40 05/27/18 10:49 111 16 40 05/27/18 10:22 95.0 05/27/18 10:00 117 26 152/80 (104) 98 05/27/18 09:53 121 156/86 05/27/18 09:52 121 156/86 05/27/18 09:52 95.0 05/27/18 09:00 120 25 160/79 (106) 98 05/27/18 08:45 121 20 40 05/27/18 08:00 Mechanical Ventilator 05/27/18 08:00 40 05/27/18 08:00 120 05/27/18 08:00 97.5 115 26 149/92 (111) 98 97.5 05/27/18 07:44 Mechanical Ventilator Intake and Output 05/27/18 05/28/18 19:00 07:00 Output Total 1210 ml 550 ml Balance -1210 ml -550 ml Output Urine Total 1210 ml 550 ml # Bowel Movements 1 Laboratory Tests 05/27/18 11:25: Lactic Acid Level 2.20 05/28/18 05:17: Lactic Acid Level 1.20, White Blood Count 14.3H, Red Blood Count 4.06L, Hemoglobin 10.1L, Hematocrit 32.0L, Mean Corpuscular Volume 79L, Mean Corpuscular Hemoglobin 24.9L, Mean Corpuscular Hemoglobin Concent 31.6L, Red Cell Distribution Width 17.1H, Platelet Count 270, Mean Platelet Volume 4.8L, Neutrophils (%) (Auto) , Lymphocytes (%) (Auto) , Monocytes (%) (Auto) , Eosinophils (%) (Auto) , Basophils (%) (Auto) , Sodium Level 147H, Potassium Level 4.1, Chloride Level 108H, Carbon Dioxide Level 25, Anion Gap 14, Blood Urea Nitrogen 37H, Creatinine 0.8, Estimat Glomerular Filtration Rate , Glucose Level 81, Calcium Level 9.3, Total Bilirubin 0.5, Aspartate Amino Transf (AST/ SGOT) 46H, Alanine Aminotransferase (ALT/SGPT) 18, Alkaline Phosphatase 301H, Total Protein 7.1, Albumin 1.9L, Globulin 5.2, Albumin/Globulin Ratio 0.4L Height (Feet): 5 Height (Inches): 7.00 Weight (Pounds): 125 General Appearance: WD/WN, thin Neck: supple Cardiovascular: normal rate Respiratory/Chest: chest wall non-tender, lungs clear, normal breath sounds, no respiratory distress, no accessory muscle use Abdomen: normal bowel sounds, non tender, soft Edema: no edema noted Arm (L), no edema noted Arm (R), no edema noted Leg (L), no edema noted Leg (R), no edema noted Pedal (L), no edema noted Pedal (R), no edema noted Generalized Neurologic: responsive Jarrod Vásquez MD May 28, 2018 07:32
[2018-05-28] MEDS: D5 1/2NS 1,000 ML IV SCH ×3 (07:52→22:25)
[2018-05-28] MEDS: Minocycline HCl 50mg cap ORAL SCH ×2 (08:29→21:12)
[2018-05-28] MEDS: Doxazosin 1mg Tab ORAL SCH (08:31)
[2018-05-28] MEDS: Ascorbic Acid 500mg tab ORAL SCH (08:31)
[2018-05-28] MEDS: Multivitamin w/Minerals tab ORAL SCH (08:31)
[2018-05-28] MEDS: Isoniazid 300mg tab ORAL SCH (08:31)
[2018-05-28] MEDS: Pyridoxine 50mg tab ORAL SCH (08:32)
[2018-05-28] MEDS: Metoprolol Tartrate 50mg tab ORAL SCH ×3 (08:32→21:14)
[2018-05-28] MEDS: Aspirin Baby 81mg ORAL SCH (08:32)
[2018-05-28] MEDS: levETIRAcetam 1,000mg/NS100ml 100 ML IVPB SCH ×2 (08:37→21:11)
--- NOTE | 2018-05-28 10:26 | Diagnostic Imaging Report ---
Indication: Abdominal distention and vomiting Technique: Supine view of the abdomen Comparison: 02/26/2018 gastrostomy study Findings: There is a gastrostomy in the expected position. There are cholecystectomy clips. Bowel gas pattern is unremarkable. There is a Manzo catheter in place. No unusual masses or calcifications Impression: No acute process
--- NOTE | 2018-05-28 11:12 | Infectious Diseases Prog Note ---
Assessment/Plan Assessment/Plan antibiotics : isoniazid, rifampin, ethambutol, pyrazinamide, pyridoxine, meropenem, minocycline A 1. pneumonia 2. pulmonary tuberculosis 3. leucocytosis 4. respiratory failure 5. seizures P 1. continue meropenem, minocycline 2. continue isoniazid, rifampin, ethambutol, pyrazinamide, pyridoxine 3. will follow up cultures Subjective ROS Limited/Unobtainable: Yes Allergies: Coded Allergies: No Known Allergies (Unverified , 01/27/17) Objective Vital Signs Last 24 Hour Vital Signs Date Time Temp Pulse Resp B/P (MAP) Pulse Ox O2 Delivery O2 Flow Rate FiO2 05/28/18 11:07 77 15 40 05/28/18 10:00 77 22 101/50 (67) 100 05/28/18 09:19 80 14 40 05/28/18 09:00 78 23 89/47 (61) 100 05/28/18 08:32 90 146/62 05/28/18 08:30 90 146/62 05/28/18 08:00 88 23 115/59 (77) 100 05/28/18 08:00 40 05/28/18 08:00 85 05/28/18 07:04 88 16 100 Mechanical Ventilator 40 05/28/18 07:00 99.5 86 22 146/62 (90) 100 99.5 05/28/18 06:55 87 14 40 05/28/18 06:54 87 14 100 Mechanical Ventilator 40 05/28/18 06:00 121 25 135/63 (87) 99 05/28/18 05:25 127 14 40 05/28/18 05:00 117 24 135/67 (89) 96 05/28/18 04:00 115 05/28/18 04:00 40 05/28/18 04:00 99.4 117 24 132/61 (84) 96 99.4 05/28/18 04:00 Mechanical Ventilator 05/28/18 03:39 111 15 100 Mechanical Ventilator 40 05/28/18 03:27 111 13 40 05/28/18 03:27 111 13 99 Mechanical Ventilator 40 05/28/18 03:00 112 23 129/63 (85) 100 05/28/18 02:00 100 24 140/65 (90) 100 05/28/18 01:46 103 14 40 05/28/18 01:00 105 24 141/65 (90) 100 05/28/18 00:00 Mechanical Ventilator 05/28/18 00:00 98.7 97 24 142/65 (90) 100 98.7 05/27/18 23:38 85 13 100 Mechanical Ventilator 40 05/27/18 23:28 90 18 40 05/27/18 23:28 90 20 100 Mechanical Ventilator 40 05/27/18 23:00 97 23 105/57 (73) 100 05/27/18 22:00 90 23 113/60 (77) 100 05/27/18 21:15 90 17 40 05/27/18 21:00 91 23 108/57 (74) 100 05/27/18 20:54 93 119/63 05/27/18 20:00 91 05/27/18 20:00 40 05/27/18 20:00 98.5 91 24 100/53 (69) 100 98.5 05/27/18 20:00 Mechanical Ventilator 05/27/18 19:15 98 13 100 Mechanical Ventilator 40 05/27/18 19:03 88 19 100 Mechanical Ventilator 40 05/27/18 19:03 88 19 40 05/27/18 19:00 113 23 120/70 (87) 97 05/27/18 18:00 118 23 135/67 (89) 98 05/27/18 17:26 117 24 40 05/27/18 17:00 115 22 112/70 (84) 98 05/27/18 16:00 98.1 113 20 133/77 (95) 98 98.1 05/27/18 16:00 40 05/27/18 16:00 Mechanical Ventilator 05/27/18 16:00 118 05/27/18 15:00 118 23 143/70 (94) 98 05/27/18 14:36 127 17 40 05/27/18 14:35 Mechanical Ventilator 40 05/27/18 14:35 Mechanical Ventilator 40 05/27/18 14:00 116 23 140/69 (92) 98 05/27/18 13:00 110 23 127/72 (90) 98 05/27/18 12:32 100 16 40 05/27/18 12:00 40 05/27/18 12:00 98.1 113 20 135/77 (96) 98 98.1 05/27/18 12:00 Mechanical Ventilator 05/27/18 12:00 113 Height (Feet): 5 Height (Inches): 7.00 Weight (Pounds): 125 HEENT: status post trach Respiratory/Chest: lungs clear Cardiovascular: normal rate, regular rhythm, no gallop/murmur Abdomen: soft, non tender, other - GT Extremities: no edema Microbiology Date/Time Source Procedure Growth Status 05/27/18 04:00 Blood Blood Culture - Preliminary NO GROWTH AFTER 24 HOURS Resulted 05/27/18 03:50 Blood Blood Culture - Preliminary NO GROWTH AFTER 24 HOURS Resulted 05/27/18 04:00 Sputum Gram Stain - Final Resulted 05/27/18 04:00 Sputum Sputum Culture - Preliminary Resulted 05/27/18 04:00 Urine,Clean Catch Urine Culture - Preliminary Mixed Urogenital Contaminants Resulted 05/27/18 07:40 Rectum - Preliminary Resulted Laboratory Tests Test 05/27/18 11:25 05/28/18 05:17 Lactic Acid Level 2.20 mmol/L (0.66-2.22) 1.20 mmol/L (0.4-2.0) White Blood Count 14.3 K/UL (4.8-10.8) H Red Blood Count 4.06 M/UL (4.70-6.10) L Hemoglobin 10.1 G/DL (14.2-18.0) L Hematocrit 32.0 % (42.0-52.0) L Mean Corpuscular Volume 79 FL (80-99) L Mean Corpuscular Hemoglobin 24.9 PG (27.0-31.0) L Mean Corpuscular Hemoglobin Concent 31.6 G/DL (32.0-36.0) L Red Cell Distribution Width 17.1 % (11.6-14.8) H Platelet Count 270 K/UL (150-450) Mean Platelet Volume 4.8 FL (6.5-10.1) L Neutrophils (%) (Auto) % (45.0-75.0) Lymphocytes (%) (Auto) % (20.0-45.0) Monocytes (%) (Auto) % (1.0-10.0) Eosinophils (%) (Auto) % (0.0-3.0) Basophils (%) (Auto) % (0.0-2.0) Sodium Level 147 MMOL/L (136-145) H Potassium Level 4.1 MMOL/L (3.5-5.1) Chloride Level 108 MMOL/L (98-107) H Carbon Dioxide Level 25 MMOL/L (21-32) Anion Gap 14 mmol/L (5-15) Blood Urea Nitrogen 37 mg/dL (7-18) H Creatinine 0.8 MG/DL (0.55-1.30) Estimat Glomerular Filtration Rate mL/min (>60) Glucose Level 81 MG/DL (74-106) Calcium Level 9.3 MG/DL (8.5-10.1) Total Bilirubin 0.5 MG/DL (0.2-1.0) Aspartate Amino Transf (AST/SGOT) 46 U/L (15-37) H Alanine Aminotransferase (ALT/SGPT) 18 U/L (12-78) Alkaline Phosphatase 301 U/L (46-116) H Total Protein 7.1 G/DL (6.4-8.2) Albumin 1.9 G/DL (3.4-5.0) L Globulin 5.2 g/dL Albumin/Globulin Ratio 0.4 (1.0-2.7) L Current Medications Medications (Trade) Dose Ordered Sig/Iram Route PRN Reason Start Time Stop Time Status Last Admin Dose Admin Acetaminophen (Tylenol) 650 mg Q4H PRN ORAL Fever/Headache/Mild Pain 05/27/18 06:15 06/26/18 06:14 05/27/18 09:52 Albuterol/ Ipratropium (Albuterol/ Ipratropium) 3 ml Q4HRT HHN 05/27/18 11:00 06/01/18 08:59 05/28/18 06:54 Amlodipine Besylate (Norvasc) 10 mg DAILY ORAL 05/27/18 09:00 06/26/18 08:59 05/28/18 08:30 Artificial Tears (Akwa-Tears) 2 drop FIVE TIMES A DAY PRN BOTH EYES Dry Eyes 05/27/18 06:15 06/26/18 06:14 Ascorbic Acid (Vitamin C) 250 mg DAILY ORAL 05/27/18 09:00 06/26/18 08:59 05/28/18 08:31 Aspirin (ASA) 81 mg DAILY ORAL 05/27/18 09:00 06/26/18 08:59 05/28/18 08:32 Atorvastatin Calcium (Lipitor) 10 mg BEDTIME ORAL 05/27/18 21:00 06/26/18 20:59 05/27/18 20:53 Bisacodyl (Dulcolax) 10 mg PRN PRN RECTAL DAILY 05/27/18 06:15 06/26/18 06:14 05/27/18 09:52 Dextrose/Sodium Chloride 1,000 ml @ 100 mls/hr Q10H IV 05/28/18 07:30 06/27/18 07:29 05/28/18 07:52 Doxazosin Mesylate (Cardura) 1 mg DAILY ORAL 05/27/18 09:00 06/26/18 08:59 05/28/18 08:31 Ethambutol HCl (Myambutol) 800 mg DAILY ORAL 05/27/18 12:30 06/26/18 12:29 05/28/18 08:31 Famotidine (Pepcid) 20 mg DAILY ORAL 05/27/18 09:00 06/26/18 08:59 05/28/18 08:31 Isoniazid (Inh) 300 mg DAILY ORAL 05/27/18 09:00 06/26/18 08:59 05/28/18 08:31 Levetiracetam 100 ml @ 400 mls/hr Q12HR IVPB 05/27/18 09:30 06/26/18 09:29 05/28/18 08:37 Lorazepam (Ativan 2mg/ml 1ml) 2 mg Q1H PRN IV For Seizures 05/27/18 09:30 06/03/18 09:29 05/27/18 17:44 Meropenem 500 mg/ Sodium Chloride 50 ml @ 100 mls/hr Q8HR IVPB 05/27/18 14:00 06/01/18 13:59 05/28/18 06:08 Metoprolol Tartrate (Lopressor) 50 mg Q12HR ORAL 05/27/18 09:00 06/26/18 08:59 05/28/18 08:32 Midodrine (Pro-Amatine) 2.5 mg THREE TIMES A DAY ORAL 05/27/18 09:00 06/26/18 08:59 Minocycline HCl (Minocin) 100 mg Q12HR ORAL 05/27/18 12:30 06/03/18 12:29 05/28/18 08:29 Multivitamins Therapeutic (Therapeutic Multivitamin) 1 ea DAILY ORAL 05/27/18 09:00 06/26/18 08:59 05/28/18 08:31 Pyrazinamide (Pza) 1,000 mg DAILY ORAL 05/27/18 09:00 06/26/18 08:59 05/28/18 08:31 Pyridoxine HCl (Vitamin B6) 50 mg DAILY ORAL 05/27/18 09:00 06/26/18 08:59 05/28/18 08:32 Rifampin (Rifadin) 600 mg DAILY ORAL 05/27/18 09:00 06/26/18 08:59 05/28/18 08:32 Sennosides (Senokot) 1 tab BID PRN ORAL Constipation 05/27/18 06:15 06/26/18 06:14 Sennosides (Senokot) 2 tab BID PRN ORAL Constipation 05/27/18 06:15 06/26/18 06:14 Sodium Phosphate (Fleet's Sodium Phosl Enema) 133 ml PRN PRN RECTAL Q 2 DAYS 05/27/18 06:15 06/26/18 06:14 Tamsulosin HCl (Flomax) 0.4 mg BEDTIME ORAL 05/27/18 21:00 06/26/18 20:59 05/27/18 20:53 Sergio Urban MD May 28, 2018 11:12
--- NOTE | 2018-05-28 15:56 | Pulmonolgy Critical Care Note ---
Critical Care - Asmt/Plan Assessment/Plan: Pulmonary CCM FU Note 72-year-old male with multiple medical problems including stroke and respiratory failure, presents with active seizures. The patient with history of tracheostomy and respiratory failure. The patient with recent hospitalization at [facility] where he was diagnosed with pulmonary tuberculosis and recent hospitalization at [place] for prolonged respiratory failure. The patient was unable to wean off the respirator and was transferred to subacute. Patient is G-tube/trach/vent dependent. Patient was noted to be actively seizing and controlled in the ER but remains less responsive. The patient was brought in for evaluation for ongoing management. I was called to assist with pulmonary status and further evaluation recommendations. The patient chart was reviewed. The care discussed with the primary MD. The patient currently comfortable on the ventilator care and chart discussed PMH Aspiration pneumonia Fungal UTI Respiratory failure with hypoxemia Dysphagia, status post PEG Malfunctioning G-tube ,status post replacement Hypoxemia Cerebrovascular disease with dementia Chronic diastolic congestive heart failure Electrolyte abnormalities: hypokalemia ,hypomagnesemia ,hyponatremia Microcytic anemia, suspecting blood loss Abnormal LFT Severe protein calorie malnutrition Seizure disorder BPH MEDS reviewed and reconciled SOCIAL HISTORY snf patient; disabled ROS unable PHYSICAL Sp02 EP Interpretation: reviewed, normal General Appearance: chronically ill appearing Head: normocephalic, atraumatic Eyes: bilateral eye normal inspection ENT: dry Neck: trach, carotid 2+ Respiratory: decreased breath sounds, scattered rhonchi bilaterally; no wheeze Cardiovascular : regular rate, rhythm, no murmur without MRG Gastrointestinal: non tender, soft, non-distended, no guarding, no rebound; GT Musculoskeletal: no CCE poorly responsive skin noted Labs Test 05/27/18 03:46 05/27/18 04:00 05/27/18 11:25 Arterial Blood pH 7.338 (7.350-7.450) Arterial Blood Partial Pressure CO2 57.0 mmHg (35.0-45.0) Arterial Blood Partial Pressure O2 101.7 mmHg (75.0-100.0) Arterial Blood HCO3 29.9 mmol/L (22.0-26.0) Arterial Blood Oxygen Saturation 97.0 % (95-100) Arterial Blood Base Excess 3.1 (-2-2) Derek Test Positive White Blood Count 12.1 K/UL (4.8-10.8) Red Blood Count 4.46 M/UL (4.70-6.10) Hemoglobin 11.0 G/DL (14.2-18.0) Hematocrit 35.0 % (42.0-52.0) Mean Corpuscular Volume 78 FL (80-99) Mean Corpuscular Hemoglobin 24.6 PG (27.0-31.0) Mean Corpuscular Hemoglobin Concent 31.4 G/DL (32.0-36.0) Red Cell Distribution Width 16.8 % (11.6-14.8) Platelet Count 337 K/UL (150-450) Mean Platelet Volume 5.1 FL (6.5-10.1) Neutrophils (%) (Auto) % (45.0-75.0) Lymphocytes (%) (Auto) % (20.0-45.0) Monocytes (%) (Auto) % (1.0-10.0) Eosinophils (%) (Auto) % (0.0-3.0) Basophils (%) (Auto) % (0.0-2.0) Urine Color Yellow Urine Appearance Slightly cloudy Urine pH 6.5 (4.5-8.0) Urine Specific [place] 1.015 (1.005-1.035) Urine Protein 3+ (NEGATIVE) Urine Glucose (UA) Negative (NEGATIVE) Urine Ketones Negative (NEGATIVE) Urine Blood 3+ (NEGATIVE) Urine Nitrite Negative (NEGATIVE) Urine Bilirubin Negative (NEGATIVE) Urine Urobilinogen 1 MG/DL (0.0-1.0) Urine Leukocyte Esterase 3+ (NEGATIVE) Urine RBC 10-15 /HPF (0 - 0) Urine WBC 40-60 /HPF (0 - 0) Urine Squamous Epithelial Cells Few /LPF (NONE/OCC) Urine Bacteria Moderate /HPF (NONE) Urine Coarse Granular Casts 0-2 /LPF (NONE) Urine Yeast Few /HPF (NONE) Sodium Level 139 MMOL/L (136-145) Potassium Level 5.2 MMOL/L (3.5-5.1) Chloride Level 103 MMOL/L (98-107) Carbon Dioxide Level 29 MMOL/L (21-32) Anion Gap 8 mmol/L (5-15) Blood Urea Nitrogen 25 mg/dL (7-18) Creatinine 0.7 MG/DL (0.55-1.30) Estimat Glomerular Filtration Rate mL/min (>60) Glucose Level 102 MG/DL (74-106) Lactic Acid Level 2.40 mmol/L (0.4-2.0) 2.20 mmol/L (0.66-2.22) Calcium Level 9.4 MG/DL (8.5-10.1) Phosphorus Level 4.9 MG/DL (2.5-4.9) Magnesium Level 1.8 MG/DL (1.8-2.4) Total Bilirubin 0.6 MG/DL (0.2-1.0) Aspartate Amino Transf (AST/SGOT) 48 U/L (15-37) Alanine Aminotransferase (ALT/SGPT) 18 U/L (12-78) Alkaline Phosphatase 444 U/L (46-116) Total Creatine Kinase 36 U/L (26-308) Creatine Kinase MB 0.6 NG/ML (0.0-3.6) Creatine Kinase MB Relative Index 1.6 Troponin I 0.014 ng/mL (0.000-0.056) Pro-B-Type Natriuretic Peptide 614 pg/mL (0-125) Total Protein 7.9 G/DL (6.4-8.2) Albumin 2.1 G/DL (3.4-5.0) Globulin 5.8 g/dL Albumin/Globulin Ratio 0.4 (1.0-2.7) IMPRESSION respiratory failure seizure possible sepsis chronic encephalopathy protein calorie malnutrition trach leukocytosis pulmonary TB debility hypoxemia htn PLAN ID reviewed neuro noted care noted IV antibiotics respiratory care as is aspiration precautions supportive care and monitor suction PRN follow clinically oxygen therapy vent management prognosis guarded acute and requires continued ICU care Critical Care - Objective Last 24 Hour Vital Signs Date Time Temp Pulse Resp B/P (MAP) Pulse Ox O2 Delivery O2 Flow Rate FiO2 05/28/18 15:19 83 16 100 Mechanical Ventilator 40 05/28/18 15:17 83 16 40 05/28/18 13:13 79 14 40 05/28/18 13:00 81 24 103/48 (66) 100 05/28/18 12:00 40 05/28/18 12:00 80 22 118/50 (72) 100 05/28/18 12:00 81 05/28/18 12:00 Mechanical Ventilator 05/28/18 11:21 86 16 100 Mechanical Ventilator 40 05/28/18 11:11 86 15 100 Mechanical Ventilator 40 10/24/18 11:07 77 15 40 05/28/18 11:00 79 22 117/53 (74) 99 05/28/18 10:00 77 22 101/50 (67) 100 05/28/18 09:19 80 14 40 05/28/18 09:00 78 23 89/47 (61) 100 05/28/18 08:32 90 146/62 05/28/18 08:30 90 146/62 05/28/18 08:00 Mechanical Ventilator 05/28/18 08:00 88 23 115/59 (77) 100 05/28/18 08:00 40 05/28/18 08:00 85 05/28/18 07:04 88 16 100 Mechanical Ventilator 40 05/28/18 07:00 99.5 86 22 146/62 (90) 100 99.5 05/28/18 06:55 87 14 40 05/28/18 06:54 87 14 100 Mechanical Ventilator 40 05/28/18 06:00 121 25 135/63 (87) 99 05/28/18 05:25 127 14 40 05/28/18 05:00 117 24 135/67 (89) 96 05/28/18 04:00 115 05/28/18 04:00 40 05/28/18 04:00 99.4 117 24 132/61 (84) 96 99.4 05/28/18 04:00 Mechanical Ventilator 05/28/18 03:39 111 15 100 Mechanical Ventilator 40 05/28/18 03:27 111 13 40 05/28/18 03:27 111 13 99 Mechanical Ventilator 40 05/28/18 03:00 112 23 129/63 (85) 100 05/28/18 02:00 100 24 140/65 (90) 100 05/28/18 01:46 103 14 40 05/28/18 01:00 105 24 141/65 (90) 100 05/28/18 00:00 Mechanical Ventilator 05/28/18 00:00 98.7 97 24 142/65 (90) 100 98.7 05/27/18 23:38 85 13 100 Mechanical Ventilator 40 05/27/18 23:28 90 18 40 05/27/18 23:28 90 20 100 Mechanical Ventilator 40 05/27/18 23:00 97 23 105/57 (73) 100 05/27/18 22:00 90 23 113/60 (77) 100 05/27/18 21:15 90 17 40 05/27/18 21:00 91 23 108/57 (74) 100 05/27/18 20:54 93 119/63 05/27/18 20:00 91 05/27/18 20:00 40 05/27/18 20:00 98.5 91 24 100/53 (69) 100 98.5 05/27/18 20:00 Mechanical Ventilator 05/27/18 19:15 98 13 100 Mechanical Ventilator 40 05/27/18 19:03 88 19 100 Mechanical Ventilator 40 05/27/18 19:03 88 19 40 05/27/18 19:00 113 23 120/70 (87) 97 05/27/18 18:00 118 23 135/67 (89) 98 05/27/18 17:26 117 24 40 05/27/18 17:00 115 22 112/70 (84) 98 05/27/18 16:00 98.1 113 20 133/77 (95) 98 98.1 05/27/18 16:00 40 05/27/18 16:00 Mechanical Ventilator 05/27/18 16:00 118 Micro: Microbiology Date/Time Source Procedure Growth Status 05/27/18 04:00 Blood Blood Culture - Preliminary NO GROWTH AFTER 24 HOURS Resulted 05/27/18 03:50 Blood Blood Culture - Preliminary NO GROWTH AFTER 24 HOURS Resulted 05/27/18 04:00 Sputum Gram Stain - Final Resulted 05/27/18 04:00 Sputum Sputum Culture - Preliminary Resulted 05/27/18 04:00 Urine,Clean Catch Urine Culture - Preliminary Mixed Urogenital Contaminants Resulted 05/27/18 07:40 Rectum - Preliminary Resulted Critical Care - Subjective ROS Limited/Unobtainable: Yes Condition: stable FI02: 40 Vent Support Breath Rate: 12 Vent Support Mode: AC Vent Tidal Volume: 500 Sputum Amount: Scant PEEP: 5.0 PIP: 21 I&O: Intake and Output 05/27/18 05/28/18 19:00 07:00 Intake Total 200 ml Output Total 1210 ml 550 ml Balance -1210 ml -350 ml Intake IV Total 200 ml Output Urine Total 1210 ml 550 ml # Bowel Movements 1 Jones Rasmussen MD May 28, 2018 15:56
--- NOTE | 2018-05-28 16:44 | Neurology Progress Note ---
Interim History Interim History Interim History Mr. Narvaez is unresponsive. He does not respond even to deep painful stimuli other than minimal non- purposeful withdrawal. He has been seizure free since yesterday. He continues to be acutely ill. Review of Systems Neuro Review of Systems Unable to obtain. Objective Physical Exam Last Vital Signs Date Time Temp Pulse Resp B/P (MAP) Pulse Ox O2 Delivery O2 Flow Rate FiO2 05/28/18 16:00 Mechanical Ventilator 05/28/18 16:00 83 05/28/18 16:00 40 05/28/18 16:00 25 104/48 (66) 100 05/28/18 07:00 99.5 99.5 05/27/18 07:00 15.0 Laboratory Tests Test 05/28/18 05:17 White Blood Count 14.3 K/UL (4.8-10.8) H Red Blood Count 4.06 M/UL (4.70-6.10) L Hemoglobin 10.1 G/DL (14.2-18.0) L Hematocrit 32.0 % (42.0-52.0) L Mean Corpuscular Volume 79 FL (80-99) L Mean Corpuscular Hemoglobin 24.9 PG (27.0-31.0) L Mean Corpuscular Hemoglobin Concent 31.6 G/DL (32.0-36.0) L Red Cell Distribution Width 17.1 % (11.6-14.8) H Platelet Count 270 K/UL (150-450) Mean Platelet Volume 4.8 FL (6.5-10.1) L Neutrophils (%) (Auto) % (45.0-75.0) Lymphocytes (%) (Auto) % (20.0-45.0) Monocytes (%) (Auto) % (1.0-10.0) Eosinophils (%) (Auto) % (0.0-3.0) Basophils (%) (Auto) % (0.0-2.0) Sodium Level 147 MMOL/L (136-145) H Potassium Level 4.1 MMOL/L (3.5-5.1) Chloride Level 108 MMOL/L (98-107) H Carbon Dioxide Level 25 MMOL/L (21-32) Anion Gap 14 mmol/L (5-15) Blood Urea Nitrogen 37 mg/dL (7-18) H Creatinine 0.8 MG/DL (0.55-1.30) Estimat Glomerular Filtration Rate mL/min (>60) Glucose Level 81 MG/DL (74-106) Lactic Acid Level 1.20 mmol/L (0.4-2.0) Calcium Level 9.3 MG/DL (8.5-10.1) Total Bilirubin 0.5 MG/DL (0.2-1.0) Aspartate Amino Transf (AST/SGOT) 46 U/L (15-37) H Alanine Aminotransferase (ALT/SGPT) 18 U/L (12-78) Alkaline Phosphatase 301 U/L (46-116) H Total Protein 7.1 G/DL (6.4-8.2) Albumin 1.9 G/DL (3.4-5.0) L Globulin 5.2 g/dL Albumin/Globulin Ratio 0.4 (1.0-2.7) L Neurologic Exam Objective PHYSICAL EXAMINATION: GENERAL: He is a well-developed, ill-looking black gentleman, lying in an ICU bed, in no acute distress. HEAD: Normocephalic and atraumatic. EENT: Examination benign. NECK: No neck rigidity was observed. NEUROLOGICAL EXAMINATION: MENTAL STATUS EXAMINATION: He could not be aroused even on deep pain. Further mental status testing was impossible. SPEECH: Could not be tested. LANGUAGE: Could not be tested. CRANIAL NERVE EXAMINATION: II: He did not blink to threat. III, IV & : External ocular movements were present on oculocephalic maneuvers. The pupils were 3 mm in diameter, equal, round, regular, and non- reactive to light. V & VII: The corneal reflexes were present bilaterally. However, the right- sided reflex was diminished compared to the left. VIII: He did not respond to loud sounds and had no nystagmus. IX & X: Gag reflex was suppressed. XI: The sternocleidomastoids and trapezii functioned minimally. XII: The tongue was in the midline. MOTOR SYSTEM: The tone was increased in all four extremities with spasticity more marked on the right than on the left. Examination of muscle mass revealed generalized muscle wasting, again more marked on the right than on the left. He moved all extremities minimally on deep pain. SENSORY EXAMINATION: He moved all extremities minimally on deep pain. REFLEXES: Trace+ and bilaterally symmetrical at the biceps, triceps, brachioradialis. 0 at both knees and ankles. The plantar responses were extensor bilaterally. COORDINATION, STANCE & GAIT: Could not be tested. Impression/Recommendations Diagnostic Impression 1. Mr. Sagar Narvaez is a 72-year-old, [place] gentleman, of unknown handedness, who does have a past history of cerebrovascular disease with a prior stroke, pulmonary tuberculosis, chronic respiratory failure for which he has tracheostomy, and dysphagia for which he has a gastrostomy; who [place] where he was noted to have an alteration in his mental state and multiple seizures. 2. He was brought in by the paramedics and has since been hospitalized. He was given a few doses of Ativan and was also given Versed in the ambulance. 3. He is unresponsive. He does not respond even to deep painful stimuli other than minimal non-purposeful withdrawal. He has been seizure free since yesterday. He continues to be acutely ill. 4. On neurological examination, at this time, he cannot be aroused even on deep pain. His corneal reflex is diminished on the right side compared to the left. He does not move any of his extremities even on deep pain. His deep tendon reflexes are globally diminished and his plantar responses are extensor bilaterally. 5. Laboratory data reveal a leukocytosis and findings consistent with a UTI. 6. 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 His recent breakthrough seizures are most probably due to his acute UTI. Recommendations 1. Continue present management. 2. Continue Keppra 1000 mg q 12 hours. 3. Aggressive treatment of UTI. 4. Observe. Mercedes Coelho M.D., M.S.P.MERCEDES BERMUDEZ May 28, 2018 16:44
--- NOTE | 2018-05-28 19:51 | Consultation ---
History of Present Illness General Date patient seen: May 28, 2018 Chief Complaint: Seizure Reason for Consultation: decubitus ulcer Present Illness HPI 72-year-old male with multiple medical problems including stroke and respiratory failure presented to [facility] with active seizures. Per history, recent hospitalization at [facility] where he was diagnosed with pulmonary tuberculosis and recent hospitalization at [facility] for prolonged respiratory failure. Patient is G-tube/trach/vent dependent. Patient was noted to be actively seizing and was controlled in the ER then admitted for care. On admission noted to have right hip wound and sacral wound. Surgery called to evaluate. patient seen, chart reviewed, patient examined. currently in ICU on vent and feeds. Allergies: Coded Allergies: No Known Allergies (Unverified , 01/27/17) Medication History Scheduled Amlodipine Besylate* (Amlodipine Besylate*), 10 MG ORAL DAILY, (Reported) Ascorbic Acid* (Ascorbic Acid*), 250 MG ORAL DAILY Aspirin* (Aspirin*), 81 MG ORAL DAILY, (Reported) Atorvastatin Calcium* (Atorvastatin Calcium*), 40 MG ORAL BEDTIME, (Reported) Atorvastatin Calcium* (Lipitor*), 10 MG GT BEDTIME Cranberry Extract (Cranberry), 425 MG PO BID, (Reported) Docusate Sodium (Docusate Sodium), 100 MG ORAL DAILY Docusate Sodium* (Colace*), 100 MG ORAL DAILY, (Reported) Doxazosin Mesylate* (Cardura*), 1 MG ORAL DAILY, (Reported) Ethambutol Hcl* (Myambutol*), 800 MG ORAL DAILY Famotidine (Famotidine), 20 MG ORAL DAILY, (Reported) Imipenem/Cilastatin Sodium (Imipenem-Cilastatin 500 Mg Vl), 500 MG IV DAILY Ipratropium/Albuterol Sulfate (DuoNeb 0.5-3(2.5)mg/3ml), 3 ML HHN EVERY 4 HOURS, (Reported) Isoniazid (Isoniazid), 300 MG ORAL DAILY Lansoprazole* (Lansoprazole*), 30 MG ORAL Q12HR Levetiracetam (Keppra), 750 MG ORAL Q12HR Metoprolol Tartrate* (Metoprolol Tartrate*), 50 MG GT Q12HR Midodrine (Midodrine HCl), 2.5 MG ORAL THREE TIMES A DAY, (Reported) Multivitamin With Minerals (Multivitamins With Minerals*), 1 TAB ORAL DAILY, ( Reported) Pyrazinamide (Pyrazinamide), 1,000 MG ORAL DAILY Pyridoxine HCl (Pyridoxine HCl), 50 MG ORAL DAILY Rifampin (Rifampin), 600 MG ORAL DAILY Tamsulosin HCl (Flomax), 0.4 MG ORAL BEDTIME Tamsulosin Hcl (Tamsulosin Hcl*), 0.4 MG ORAL BEDTIME, (Reported) [Vitamin B 12], 1,000 MCG SQ MONTHLY, (Reported) Scheduled PRN Acetaminophen* (Acetaminophen 325MG Tablet*), 650 MG ORAL Q4H PRN for Fever/ Headache/Mild Pain, (Reported) Acetaminophen* (Acetaminophen 325MG Tablet*), 650 MG ORAL Q4H PRN Bisacodyl (Dulcolax), 10 MG RC PRN PRN for DAILY, (Reported) Dextran 70/Hypromellose (Artificial Tears Eye Drops*), 2 DROP BOTH EYES FIVE TIMES A DAY PRN Na Phos,M-B/Na Phos,Di-Ba* (Fleet Enema*), 133 ML RECTAL PRN PRN for Q 2 DAYS, ( Reported) Sennosides (Senokot), 8.6 MG PO BID PRN for Constipation, (Reported) Sennosides (Senna Laxative), 2 TAB GT BID PRN for Constipation, (Reported) Patient History Limited by: medical condition History Provided By: Medical Record, PMD Healthcare decision maker Resuscitation status Advanced Directive on File Past Medical/Surgical History Past Medical/Surgical History: (1) Vitamin B 12 deficiency (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 (3) Hyperlipidemia (4) Dyspnea (5) Aspiration pneumonia (6) BPH (benign prostatic hyperplasia) (7) Dementia (8) Encephalopathy (9) Encephalopathy acute (10) Probable sepsis (11) Severe sepsis (12) UTI (urinary tract infection), bacterial (13) Epileptic seizure, generalized (14) Decubitus ulcer (15) decu (16) HTN (hypertension) (17) Toxic metabolic encephalopathy (18) Aspiration pneumonia (19) Sepsis (20) Status epilepticus Review of Systems ROS Narrative unable to obtain given medical condition Physical Exam General Appearance: mild distress Lines, tubes and drains: trach, other HEENT: mucous membranes moist Neck: trach Respiratory/Chest: on vent Cardiovascular/Chest: tachycardia Abdomen: soft, no organomegaly, no mass, feeding tube, other Extremities: other Neurologic: unresponsiveness Last 24 Hour Vital Signs Date Time Temp Pulse Resp B/P (MAP) Pulse Ox O2 Delivery O2 Flow Rate FiO2 05/28/18 19:33 87 19 100 Mechanical Ventilator 40 05/28/18 19:23 78 16 100 Mechanical Ventilator 40 05/28/18 19:23 78 16 40 05/28/18 18:00 84 19 113/46 (68) 100 05/28/18 17:00 83 20 111/47 (68) 100 05/28/18 16:42 85 16 40 05/28/18 16:00 Mechanical Ventilator 05/28/18 16:00 83 05/28/18 16:00 40 05/28/18 16:00 82 25 104/48 (66) 100 05/28/18 15:29 89 16 100 Mechanical Ventilator 40 05/28/18 15:19 83 16 100 Mechanical Ventilator 40 05/28/18 15:17 83 16 40 05/28/18 15:00 83 22 107/43 (64) 100 05/28/18 14:00 83 22 112/48 (69) 100 05/28/18 13:13 79 14 40 05/28/18 13:00 81 24 103/48 (66) 100 05/28/18 12:00 40 05/28/18 12:00 80 22 118/50 (72) 100 05/28/18 12:00 81 05/28/18 12:00 Mechanical Ventilator 05/28/18 11:21 86 16 100 Mechanical Ventilator 40 05/28/18 11:11 86 15 100 Mechanical Ventilator 40 05/28/18 11:07 77 15 40 05/28/18 11:00 79 22 117/53 (74) 99 05/28/18 10:00 77 22 101/50 (67) 100 05/28/18 09:19 80 14 40 05/28/18 09:00 78 23 89/47 (61) 100 05/28/18 08:32 90 146/62 05/28/18 08:30 90 146/62 05/28/18 08:00 Mechanical Ventilator 05/28/18 08:00 88 23 115/59 (77) 100 05/28/18 08:00 40 05/28/18 08:00 85 05/28/18 07:04 88 16 100 Mechanical Ventilator 40 05/28/18 07:00 99.5 86 22 146/62 (90) 100 99.5 05/28/18 06:55 87 14 40 05/28/18 06:54 87 14 100 Mechanical Ventilator 40 05/28/18 06:00 121 25 135/63 (87) 99 05/28/18 05:25 127 14 40 05/28/18 05:00 117 24 135/67 (89) 96 05/28/18 04:00 115 05/28/18 04:00 40 05/28/18 04:00 99.4 117 24 132/61 (84) 96 99.4 05/28/18 04:00 Mechanical Ventilator 05/28/18 03:39 111 15 100 Mechanical Ventilator 40 05/28/18 03:27 111 13 40 05/28/18 03:27 111 13 99 Mechanical Ventilator 40 05/28/18 03:00 112 23 129/63 (85) 100 05/28/18 02:00 100 24 140/65 (90) 100 05/28/18 01:46 103 14 40 05/28/18 01:00 105 24 141/65 (90) 100 05/28/18 00:00 Mechanical Ventilator 05/28/18 00:00 98.7 97 24 142/65 (90) 100 98.7 05/27/18 23:38 85 13 100 Mechanical Ventilator 40 05/27/18 23:28 90 18 40 05/27/18 23:28 90 20 100 Mechanical Ventilator 40 05/27/18 23:00 97 23 105/57 (73) 100 05/27/18 22:00 90 23 113/60 (77) 100 05/27/18 21:15 90 17 40 05/27/18 21:00 91 23 108/57 (74) 100 05/27/18 20:54 93 119/63 05/27/18 20:00 91 05/27/18 20:00 40 05/27/18 20:00 98.5 91 24 100/53 (69) 100 98.5 05/27/18 20:00 Mechanical Ventilator Intake and Output 05/27/18 05/28/18 19:00 07:00 Intake Total 200 ml Output Total 1210 ml 550 ml Balance -1210 ml -350 ml Intake IV Total 200 ml Output Urine Total 1210 ml 550 ml # Bowel Movements 1 Laboratory Tests Test 05/28/18 05:17 White Blood Count 14.3 K/UL (4.8-10.8) H Red Blood Count 4.06 M/UL (4.70-6.10) L Hemoglobin 10.1 G/DL (14.2-18.0) L Hematocrit 32.0 % (42.0-52.0) L Mean Corpuscular Volume 79 FL (80-99) L Mean Corpuscular Hemoglobin 24.9 PG (27.0-31.0) L Mean Corpuscular Hemoglobin Concent 31.6 G/DL (32.0-36.0) L Red Cell Distribution Width 17.1 % (11.6-14.8) H Platelet Count 270 K/UL (150-450) Mean Platelet Volume 4.8 FL (6.5-10.1) L Neutrophils (%) (Auto) % (45.0-75.0) Lymphocytes (%) (Auto) % (20.0-45.0) Monocytes (%) (Auto) % (1.0-10.0) Eosinophils (%) (Auto) % (0.0-3.0) Basophils (%) (Auto) % (0.0-2.0) Sodium Level 147 MMOL/L (136-145) H Potassium Level 4.1 MMOL/L (3.5-5.1) Chloride Level 108 MMOL/L (98-107) H Carbon Dioxide Level 25 MMOL/L (21-32) Anion Gap 14 mmol/L (5-15) Blood Urea Nitrogen 37 mg/dL (7-18) H Creatinine 0.8 MG/DL (0.55-1.30) Estimat Glomerular Filtration Rate mL/min (>60) Glucose Level 81 MG/DL (74-106) Lactic Acid Level 1.20 mmol/L (0.4-2.0) Calcium Level 9.3 MG/DL (8.5-10.1) Total Bilirubin 0.5 MG/DL (0.2-1.0) Aspartate Amino Transf (AST/SGOT) 46 U/L (15-37) H Alanine Aminotransferase (ALT/SGPT) 18 U/L (12-78) Alkaline Phosphatase 301 U/L (46-116) H Total Protein 7.1 G/DL (6.4-8.2) Albumin 1.9 G/DL (3.4-5.0) L Globulin 5.2 g/dL Albumin/Globulin Ratio 0.4 (1.0-2.7) L Height (Feet): 5 Height (Inches): 7.00 Weight (Pounds): 125 Medications Current Medications Medications (Trade) Dose Ordered Sig/Iram Route PRN Reason Start Time Stop Time Status Last Admin Dose Admin Acetaminophen (Tylenol) 650 mg Q4H PRN ORAL Fever/Headache/Mild Pain 05/27/18 06:15 06/26/18 06:14 05/27/18 09:52 Albuterol/ Ipratropium (Albuterol/ Ipratropium) 3 ml Q4HRT HHN 05/27/18 11:00 06/01/18 08:59 05/28/18 19:23 Amlodipine Besylate (Norvasc) 10 mg DAILY ORAL 05/27/18 09:00 06/26/18 08:59 05/28/18 08:30 Artificial Tears (Akwa-Tears) 2 drop FIVE TIMES A DAY PRN BOTH EYES Dry Eyes 05/27/18 06:15 06/26/18 06:14 Ascorbic Acid (Vitamin C) 250 mg DAILY ORAL 05/27/18 09:00 06/26/18 08:59 05/28/18 08:31 Aspirin (ASA) 81 mg DAILY ORAL 05/27/18 09:00 06/26/18 08:59 05/28/18 08:32 Atorvastatin Calcium (Lipitor) 10 mg BEDTIME ORAL 05/27/18 21:00 06/26/18 20:59 05/27/18 20:53 Bisacodyl (Dulcolax) 10 mg PRN PRN RECTAL DAILY 05/27/18 06:15 06/26/18 06:14 05/27/18 09:52 Dextrose/Sodium Chloride 1,000 ml @ 100 mls/hr Q10H IV 05/28/18 07:30 06/27/18 07:29 05/28/18 17:31 Doxazosin Mesylate (Cardura) 1 mg DAILY ORAL 05/27/18 09:00 06/26/18 08:59 05/28/18 08:31 Ethambutol HCl (Myambutol) 800 mg DAILY ORAL 05/27/18 12:30 06/26/18 12:29 05/28/18 08:31 Famotidine (Pepcid) 20 mg DAILY ORAL 05/27/18 09:00 06/26/18 08:59 05/28/18 08:31 Isoniazid (Inh) 300 mg DAILY ORAL 05/27/18 09:00 06/26/18 08:59 05/28/18 08:31 Levetiracetam 100 ml @ 400 mls/hr Q12HR IVPB 05/27/18 09:30 06/26/18 09:29 05/28/18 08:37 Lorazepam (Ativan 2mg/ml 1ml) 2 mg Q1H PRN IV For Seizures 05/27/18 09:30 06/03/18 09:29 05/27/18 17:44 Meropenem 500 mg/ Sodium Chloride 50 ml @ 100 mls/hr Q8HR IVPB 05/27/18 14:00 06/01/18 13:59 05/28/18 14:35 Metoprolol Tartrate (Lopressor) 50 mg Q12HR ORAL 05/27/18 09:00 06/26/18 08:59 05/28/18 08:32 Midodrine (Pro-Amatine) 2.5 mg THREE TIMES A DAY ORAL 05/27/18 09:00 06/26/18 08:59 Minocycline HCl (Minocin) 100 mg Q12HR ORAL 05/27/18 12:30 06/03/18 12:29 05/28/18 08:29 Multivitamins Therapeutic (Therapeutic Multivitamin) 1 ea DAILY ORAL 05/27/18 09:00 06/26/18 08:59 05/28/18 08:31 Pyrazinamide (Pza) 1,000 mg DAILY ORAL 05/27/18 09:00 06/26/18 08:59 05/28/18 08:31 Pyridoxine HCl (Vitamin B6) 50 mg DAILY ORAL 05/27/18 09:00 06/26/18 08:59 05/28/18 08:32 Rifampin (Rifadin) 600 mg DAILY ORAL 05/27/18 09:00 06/26/18 08:59 05/28/18 08:32 Sennosides (Senokot) 1 tab BID PRN ORAL Constipation 05/27/18 06:15 06/26/18 06:14 Sennosides (Senokot) 2 tab BID PRN ORAL Constipation 05/27/18 06:15 06/26/18 06:14 Sodium Phosphate (Fleet's Sodium Phosl Enema) 133 ml PRN PRN RECTAL Q 2 DAYS 05/27/18 06:15 06/26/18 06:14 Tamsulosin HCl (Flomax) 0.4 mg BEDTIME ORAL 05/27/18 21:00 06/26/18 20:59 05/27/18 20:53 Assessment/Plan Problem List: (1) Decubitus ulcer Assessment & Plan: Right hip decubitus ulcer approximately 3cm x 3cm and full thickness. 20% sloth. no odor. no drainage. no signs of active infection. chronic and seems to be slowly healing with some granulation tissue. sacral dti without open skin. no drainage. no signs of infection. signs of prior healing wound noted. all wounds present upon admission and will be cared for during hospital stay. -cont with current medical treatment plan -nutritional support with feeds -turn q2h -air soft mattress -heel protectors -clean sacral area and apply foam dressing q7d and prn -clean right hip wound with NS, apply therahoney and cover with foam dressing thank you ICD Codes: L89.90 - Pressure ulcer of unspecified site, unspecified stage SNOMED: [id number] Zev Candelaria May 28, 2018 19:51
[2018-05-28] MEDS: Tamsulosin 0.4mg cap ORAL SCH (21:13)
--- NOTE | 2018-05-28 23:00 | General Progress Note ---
Assessment/Plan Assessment/Plan GI CONSULT ATSP for N/V. Full note to follow Assessment - N/V, ? transient, KUB (-) - suspected early cirrhosis based on imaging - hepatitis A/B/C negative - TRISTAN negative but F-Actin (+) - ? significance - Liver lesion, r/o HCC -->AFP normal - Elevated LFT - mainly alk phos - hypercholesterolemia - on statin - Anemia - Resp failure - pulm TB - on INH based Rx - s/p PEG and Trach Recommendations - Hold statin for now - PPI - not good candidate for liver biopsy or for steroids - watch LFT on INH - will consider MRI - would follow conservatively - continue TF - monitor residuls Thank you P Jose Luis Subjective Allergies: Coded Allergies: No Known Allergies (Unverified , 01/27/17) Objective Last 24 Hour Vital Signs Date Time Temp Pulse Resp B/P (MAP) Pulse Ox O2 Delivery O2 Flow Rate FiO2 05/28/18 21:14 86 126/51 05/28/18 21:12 84 16 40 05/28/18 21:00 83 19 120/80 (93) 100 05/28/18 20:00 98.5 83 19 126/81 (96) 100 05/28/18 20:00 Mechanical Ventilator 05/28/18 20:00 69 05/28/18 19:33 87 19 100 Mechanical Ventilator 40 05/28/18 19:23 78 16 100 Mechanical Ventilator 40 05/28/18 19:23 78 16 40 05/28/18 18:00 84 19 113/46 (68) 100 05/28/18 17:00 83 20 111/47 (68) 100 05/28/18 16:42 85 16 40 05/28/18 16:00 Mechanical Ventilator 05/28/18 16:00 83 05/28/18 16:00 40 05/28/18 16:00 82 25 104/48 (66) 100 05/28/18 15:29 89 16 100 Mechanical Ventilator 40 05/28/18 15:19 83 16 100 Mechanical Ventilator 40 05/28/18 15:17 83 16 40 05/28/18 15:00 83 22 107/43 (64) 100 05/28/18 14:00 83 22 112/48 (69) 100 05/28/18 13:13 79 14 40 05/28/18 13:00 81 24 103/48 (66) 100 10/24/18 12:00 40 05/28/18 12:00 80 22 118/50 (72) 100 05/28/18 12:00 81 05/28/18 12:00 Mechanical Ventilator 05/28/18 11:21 86 16 100 Mechanical Ventilator 40 05/28/18 11:11 86 15 100 Mechanical Ventilator 40 05/28/18 11:07 77 15 40 05/28/18 11:00 79 22 117/53 (74) 99 05/28/18 10:00 77 22 101/50 (67) 100 05/28/18 09:19 80 14 40 05/28/18 09:00 78 23 89/47 (61) 100 05/28/18 08:32 90 146/62 05/28/18 08:30 90 146/62 05/28/18 08:00 Mechanical Ventilator 05/28/18 08:00 88 23 115/59 (77) 100 05/28/18 08:00 40 05/28/18 08:00 85 05/28/18 07:04 88 16 100 Mechanical Ventilator 40 05/28/18 07:00 99.5 86 22 146/62 (90) 100 99.5 05/28/18 06:55 87 14 40 05/28/18 06:54 87 14 100 Mechanical Ventilator 40 05/28/18 06:00 121 25 135/63 (87) 99 05/28/18 05:25 127 14 40 05/28/18 05:00 117 24 135/67 (89) 96 05/28/18 04:00 115 05/28/18 04:00 40 05/28/18 04:00 99.4 117 24 132/61 (84) 96 99.4 05/28/18 04:00 Mechanical Ventilator 05/28/18 03:39 111 15 100 Mechanical Ventilator 40 05/28/18 03:27 111 13 40 05/28/18 03:27 111 13 99 Mechanical Ventilator 40 05/28/18 03:00 112 23 129/63 (85) 100 05/28/18 02:00 100 24 140/65 (90) 100 05/28/18 01:46 103 14 40 05/28/18 01:00 105 24 141/65 (90) 100 05/28/18 00:00 Mechanical Ventilator 05/28/18 00:00 98.7 97 24 142/65 (90) 100 98.7 05/27/18 23:38 85 13 100 Mechanical Ventilator 40 05/27/18 23:28 90 18 40 05/27/18 23:28 90 20 100 Mechanical Ventilator 40 05/27/18 23:00 97 23 105/57 (73) 100 Intake and Output 05/27/18 05/28/18 19:00 07:00 Intake Total 200 ml Output Total 1210 ml 550 ml Balance -1210 ml -350 ml Intake IV Total 200 ml Output Urine Total 1210 ml 550 ml # Bowel Movements 1 Laboratory Tests 05/28/18 05:17: White Blood Count 14.3H, Red Blood Count 4.06L, Hemoglobin 10.1L, Hematocrit 32.0L, Mean Corpuscular Volume 79L, Mean Corpuscular Hemoglobin 24.9L, Mean Corpuscular Hemoglobin Concent 31.6L, Red Cell Distribution Width 17.1H, Platelet Count 270, Mean Platelet Volume 4.8L, Neutrophils (%) (Auto) , Lymphocytes (%) (Auto) , Monocytes (%) (Auto) , Eosinophils (%) (Auto) , Basophils (%) (Auto) , Sodium Level 147H, Potassium Level 4.1, Chloride Level 108H, Carbon Dioxide Level 25, Anion Gap 14, Blood Urea Nitrogen 37H, Creatinine 0.8, Estimat Glomerular Filtration Rate , Glucose Level 81, Lactic Acid Level 1.20, Calcium Level 9.3, Total Bilirubin 0.5, Aspartate Amino Transf (AST/SGOT) 46H, Alanine Aminotransferase (ALT/SGPT) 18, Alkaline Phosphatase 301H, Total Protein 7.1, Albumin 1.9L, Globulin 5.2, Albumin/Globulin Ratio 0.4L Height (Feet): 5 Height (Inches): 7.00 Weight (Pounds): 125 Oli Amaya MD May 28, 2018 23:00
[2018-05-29] VITALS (24 sets, daily range): BP systolic 120–145; BP diastolic 52–66
[2018-05-29] MEDS: Albuterol/Ipratropium 3ml neb HHN SCH ×6 (03:33→22:54)
[2018-05-29 06:58] LABS: HEMATOCRIT 27.6 % (42.0-52.0); HEMOGLOBIN 8.8 G/DL (14.2-18.0); MEAN CORPUSCULAR VOLUME 79 FL (80-99); PLATELET COUNT 181 K/UL (150-450); RED CELL DISTRIBUTION WIDTH 16.8 % (11.6-14.8); WHITE BLOOD COUNT 12.6 K/UL (4.8-10.8)
[2018-05-29 07:11] LABS: ALANINE AMINOTRANSFERASE 9 U/L (12-78); ALBUMIN 1.7 G/DL (3.4-5.0); ALBUMIN/GLOBULIN RATIO 0.3 (1.0-2.7); ALKALINE PHOSPHATASE 243 U/L (46-116); ANION GAP 7 mmol/L (5-15); ASPARTATE AMINO TRANSFERASE 43 U/L (15-37); BILIRUBIN,TOTAL 0.5 MG/DL (0.2-1.0); BLOOD UREA NITROGEN 35 mg/dL (7-18); CALCIUM 9.1 MG/DL (8.5-10.1); CARBON DIOXIDE 27 MMOL/L (21-32); CHLORIDE 108 MMOL/L (98-107); CREATININE 0.7 MG/DL (0.55-1.30); POTASSIUM 3.7 MMOL/L (3.5-5.1); SODIUM 142 MMOL/L (136-145)
--- NOTE | 2018-05-29 08:07 | Critical Care Progress Note ---
Assessment/Plan Assessment/Plan IMPRESSION respiratory failure seizure possible sepsis chronic encephalopathy protein calorie malnutrition trach leukocytosis pulmonary TB debility hypoxemia htn PLAN ID noted monitor for seizure activity care noted IV antibiotics; cultures noted respiratory care as is aspiration precautions supportive care and monitor suction as needed follow clinically oxygen therapy vent management and monitor acid base prognosis guarded medications/laboratory data/nursing notes/ICU care reviewed in detail note reviewed and edited care discussed with RN and RT ICU time spent 40 minutes Critical Care - Subjective Interval Events: icu care reviewed findings and nursing care reviewe vent reviewed ROS Limited/Unobtainable: Yes Condition: critical EKG Rhythm: Sinus Rhythm Residuals: minimal Tube Feeding Tolerated: yes I&O: Intake and Output 05/28/18 05/29/18 18:59 06:59 Intake Total 1500 ml 1590 ml Output Total 585 ml 580 ml Balance 915 ml 1010 ml Intake Free Water 100 ml IV Total 1500 ml 1250 ml Tube Feeding 240 ml Output Urine Total 585 ml 580 ml Critical Care - Objective Last 24 Hour Vital Signs Date Time Temp Pulse Resp B/P (MAP) Pulse Ox O2 Delivery O2 Flow Rate FiO2 05/29/18 07:26 66 14 99 Mechanical Ventilator 40 05/29/18 07:16 68 19 97 Mechanical Ventilator 40 05/29/18 07:15 68 20 40 05/29/18 06:00 77 16 145/60 (88) 100 05/29/18 05:15 78 23 40 05/29/18 05:00 74 17 136/59 (84) 100 05/29/18 05:00 76 16 136/59 (84) 100 05/29/18 04:00 Mechanical Ventilator 05/29/18 04:00 77 05/29/18 04:00 40 05/29/18 04:00 98.8 75 17 139/60 (86) 100 05/29/18 03:40 72 12 100 Mechanical Ventilator 40 05/29/18 03:30 72 17 100 Mechanical Ventilator 40 05/29/18 03:28 72 17 40 05/29/18 03:00 70 17 140/61 (87) 100 05/29/18 02:00 72 17 120/55 (76) 100 05/29/18 01:00 70 17 127/58 (81) 100 05/29/18 00:55 68 17 40 05/29/18 00:00 40 05/29/18 00:00 Mechanical Ventilator 05/29/18 00:00 67 05/29/18 00:00 99.0 67 18 133/62 (85) 100 05/28/18 23:21 74 16 100 Mechanical Ventilator 40 05/28/18 23:11 67 17 100 Mechanical Ventilator 40 05/28/18 23:10 67 17 40 05/28/18 23:00 68 18 125/55 (78) 100 05/28/18 22:00 70 18 120/50 (73) 100 05/28/18 21:14 86 126/51 05/28/18 21:12 84 16 40 05/28/18 21:00 83 19 120/80 (93) 100 05/28/18 20:00 98.5 83 19 126/81 (96) 100 05/28/18 20:00 40 05/28/18 20:00 Mechanical Ventilator 05/28/18 20:00 69 05/28/18 19:33 87 19 100 Mechanical Ventilator 40 05/28/18 19:23 78 16 100 Mechanical Ventilator 40 05/28/18 19:23 78 16 40 05/28/18 18:00 84 19 113/46 (68) 100 05/28/18 17:00 83 20 111/47 (68) 100 05/28/18 16:42 85 16 40 05/28/18 16:00 Mechanical Ventilator 05/28/18 16:00 83 05/28/18 16:00 40 05/28/18 16:00 82 25 104/48 (66) 100 05/28/18 15:29 89 16 100 Mechanical Ventilator 40 05/28/18 15:19 83 16 100 Mechanical Ventilator 40 05/28/18 15:17 83 16 40 05/28/18 15:00 83 22 107/43 (64) 100 05/28/18 14:00 83 22 112/48 (69) 100 05/28/18 13:13 79 14 40 05/28/18 13:00 81 24 103/48 (66) 100 05/28/18 12:00 40 05/28/18 12:00 80 22 118/50 (72) 100 05/28/18 12:00 81 05/28/18 12:00 Mechanical Ventilator 05/28/18 11:21 86 16 100 Mechanical Ventilator 40 05/28/18 11:11 86 15 100 Mechanical Ventilator 40 05/28/18 11:07 77 15 40 05/28/18 11:00 79 22 117/53 (74) 99 05/28/18 10:00 77 22 101/50 (67) 100 05/28/18 09:19 80 14 40 05/28/18 09:00 78 23 89/47 (61) 100 05/28/18 08:32 90 146/62 05/28/18 08:30 90 146/62 Labs: Sp02 EP Interpretation: reviewed, normal General Appearance: chronically ill appearing Head: normocephalic, atraumatic Eyes: bilateral eye normal inspection ENT: dry Neck: trach, carotid 2+ Respiratory: decreased breath sounds, scattered rhonchi bilaterally; no wheeze Cardiovascular : regular rate, rhythm, no murmur without MRG Gastrointestinal: non tender, soft, non-distended, no guarding, no rebound; GT Musculoskeletal: no CCE poorly responsive skin noted Micro: Microbiology Date/Time Source Procedure Growth Status 05/27/18 04:00 Blood Blood Culture - Preliminary NO GROWTH AFTER 48 HOURS Resulted 05/27/18 03:50 Blood Blood Culture - Preliminary NO GROWTH AFTER 48 HOURS Resulted 05/27/18 04:00 Sputum Gram Stain - Final Resulted 05/27/18 04:00 Sputum Culture - Preliminary Gram Negative Bacillus 1 Resulted 05/27/18 04:00 Urine,Clean Catch Urine Culture - Preliminary Mixed Urogenital Contaminants Resulted 05/27/18 07:40 Rectum - Preliminary Resulted Nakul Cisse MD May 29, 2018 08:06
[2018-05-29] MEDS: Minocycline HCl 50mg cap ORAL SCH ×2 (09:16→20:47)
[2018-05-29] MEDS: levETIRAcetam 1,000mg/NS100ml 100 ML IVPB SCH ×2 (09:16→20:45)
[2018-05-29] MEDS: Aspirin Baby 81mg ORAL SCH (09:16)
[2018-05-29] MEDS: Pyridoxine 50mg tab ORAL SCH (09:17)
[2018-05-29] MEDS: Multivitamin w/Minerals tab ORAL SCH (09:17)
[2018-05-29] MEDS: Metoprolol Tartrate 50mg tab ORAL SCH ×2 (09:18→20:46)
[2018-05-29] MEDS: Doxazosin 1mg Tab ORAL SCH (09:19)
[2018-05-29] MEDS: Isoniazid 300mg tab ORAL SCH (09:19)
[2018-05-29] MEDS: Ascorbic Acid 500mg tab ORAL SCH (09:20)
--- NOTE | 2018-05-29 09:24 | General Progress Note ---
Assessment/Plan Problem List: (1) Toxic metabolic encephalopathy ICD Codes: G92 - Toxic encephalopathy SNOMED: 792335148 (2) HTN (hypertension) ICD Codes: I10 - Essential (primary) hypertension SNOMED: 09252796 (3) Aspiration pneumonia ICD Codes: J69.0 - Pneumonitis due to inhalation of food and vomit SNOMED: 998596751 (4) Sepsis ICD Codes: A41.9 - Sepsis, unspecified organism SNOMED: 44471645 (5) Status epilepticus ICD Codes: G40.901 - Epilepsy, unspecified, not intractable, with status epilepticus SNOMED: 632532231 (6) UTI (urinary tract infection), bacterial ICD Codes: N39.0 - Urinary tract infection, site not specified; A49.9 - Bacterial infection, unspecified SNOMED: 091559639 Status: stable Assessment/Plan ivf adjusted tube feeds monitor residuals sz rx iv abx follow up cultures monitor cxr GI eval appreciated vent support resp rx Subjective ROS Limited/Unobtainable: No Constitutional: Reports: malaise, weakness HEENT: Reports: no symptoms Cardiovascular: Reports: no symptoms Respiratory: Reports: no symptoms Gastrointestinal/Abdominal: Reports: no symptoms Genitourinary: Reports: no symptoms Neurologic/Psychiatric: Reports: seizure Endocrine: Reports: no symptoms Hematologic/Lymphatic: Reports: anemia Allergies: Coded Allergies: No Known Allergies (Unverified , 01/27/17) All Systems: reviewed and negative except above Subjective no more szs. tolerating feeds. KUB ok. on iv abx and ivf. no fevers. on the vent. poorly responsive Objective Last 24 Hour Vital Signs Date Time Temp Pulse Resp B/P (MAP) Pulse Ox O2 Delivery O2 Flow Rate FiO2 05/29/18 07:26 66 14 99 Mechanical Ventilator 40 05/29/18 07:16 68 19 97 Mechanical Ventilator 40 05/29/18 07:15 68 20 40 05/29/18 06:00 77 16 145/60 (88) 100 05/29/18 05:15 78 23 40 05/29/18 05:00 74 17 136/59 (84) 100 05/29/18 05:00 76 16 136/59 (84) 100 05/29/18 04:00 Mechanical Ventilator 05/29/18 04:00 77 05/29/18 04:00 40 05/29/18 04:00 98.8 75 17 139/60 (86) 100 05/29/18 03:40 72 12 100 Mechanical Ventilator 40 05/29/18 03:30 72 17 100 Mechanical Ventilator 40 05/29/18 03:28 72 17 40 05/29/18 03:00 70 17 140/61 (87) 100 05/29/18 02:00 72 17 120/55 (76) 100 05/29/18 01:00 70 17 127/58 (81) 100 05/29/18 00:55 68 17 40 05/29/18 00:00 40 05/29/18 00:00 Mechanical Ventilator 05/29/18 00:00 67 05/29/18 00:00 99.0 67 18 133/62 (85) 100 05/28/18 23:21 74 16 100 Mechanical Ventilator 40 05/28/18 23:11 67 17 100 Mechanical Ventilator 40 05/28/18 23:10 67 17 40 05/28/18 23:00 68 18 125/55 (78) 100 05/28/18 22:00 70 18 120/50 (73) 100 05/28/18 21:14 86 126/51 05/28/18 21:12 84 16 40 05/28/18 21:00 83 19 120/80 (93) 100 05/28/18 20:00 98.5 83 19 126/81 (96) 100 05/28/18 20:00 40 05/28/18 20:00 Mechanical Ventilator 05/28/18 20:00 69 05/28/18 19:33 87 19 100 Mechanical Ventilator 40 05/28/18 19:23 78 16 100 Mechanical Ventilator 40 05/28/18 19:23 78 16 40 05/28/18 18:00 84 19 113/46 (68) 100 05/28/18 17:00 83 20 111/47 (68) 100 05/28/18 16:42 85 16 40 05/28/18 16:00 Mechanical Ventilator 05/28/18 16:00 83 05/28/18 16:00 40 05/28/18 16:00 82 25 104/48 (66) 100 05/28/18 15:29 89 16 100 Mechanical Ventilator 40 05/28/18 15:19 83 16 100 Mechanical Ventilator 40 05/28/18 15:17 83 16 40 05/28/18 15:00 83 22 107/43 (64) 100 05/28/18 14:00 83 22 112/48 (69) 100 05/28/18 13:13 79 14 40 05/28/18 13:00 81 24 103/48 (66) 100 05/28/18 12:00 40 05/28/18 12:00 80 22 118/50 (72) 100 05/28/18 12:00 81 05/28/18 12:00 Mechanical Ventilator 05/28/18 11:21 86 16 100 Mechanical Ventilator 40 05/28/18 11:11 86 15 100 Mechanical Ventilator 40 05/28/18 11:07 77 15 40 05/28/18 11:00 79 22 117/53 (74) 99 05/28/18 10:00 77 22 101/50 (67) 100 05/28/18 09:19 80 14 40 Intake and Output 05/28/18 05/29/18 18:59 06:59 Intake Total 1500 ml 1590 ml Output Total 585 ml 580 ml Balance 915 ml 1010 ml Intake Free Water 100 ml IV Total 1500 ml 1250 ml Tube Feeding 240 ml Output Urine Total 585 ml 580 ml Laboratory Tests 05/29/18 06:30: White Blood Count 12.6H, Red Blood Count 3.50L, Hemoglobin 8.8L, Hematocrit 27.6L, Mean Corpuscular Volume 79L, Mean Corpuscular Hemoglobin 25.2L, Mean Corpuscular Hemoglobin Concent 32.0, Red Cell Distribution Width 16.8H, Platelet Count 181, Mean Platelet Volume 4.8L, Neutrophils (%) (Auto) , Lymphocytes (%) (Auto) , Monocytes (%) (Auto) , Eosinophils (%) (Auto) , Basophils (%) (Auto) , Neutrophils % (Manual) [Pending], Lymphocytes % (Manual) [Pending], Platelet Estimate [Pending], Platelet Morphology [Pending], Sodium Level 142, Potassium Level 3.7, Chloride Level 108H, Carbon Dioxide Level 27, Anion Gap 7, Blood Urea Nitrogen 35H, Creatinine 0.7, Estimat Glomerular Filtration Rate , Glucose Level 166H, Calcium Level 9.1, Total Bilirubin 0.5, Aspartate Amino Transf (AST/SGOT) 43H, Alanine Aminotransferase (ALT/SGPT) 9L, Alkaline Phosphatase 243H, Total Protein 7.0, Albumin 1.7L, Globulin 5.3, Albumin/Globulin Ratio 0.3L 05/29/18 08:10: Arterial Blood pH 7.450, Arterial Blood Partial Pressure CO2 39.8, Arterial Blood Partial Pressure O2 143.3H, Arterial Blood HCO3 27.2H, Arterial Blood Oxygen Saturation 98.4, Arterial Blood Base Excess 3.1H, Derek Test Positive Height (Feet): 5 Height (Inches): 7.00 Weight (Pounds): 126 General Appearance: WD/WN, lethargic, confused Neck: supple Cardiovascular: normal rate, regular rhythm Respiratory/Chest: rhonchi - bilaterally Abdomen: normal bowel sounds, non tender, soft, no organomegaly Edema: no edema noted Arm (L), no edema noted Arm (R), no edema noted Leg (L), no edema noted Leg (R), no edema noted Pedal (L), no edema noted Pedal (R), no edema noted Generalized Jarrod Vásquez MD May 29, 2018 09:24
[2018-05-29] MEDS ORDERED: D5 1/2NS 1,000 ML IV SCH (09:30)
--- NOTE | 2018-05-29 10:15 | Consultation ---
DATE OF CONSULTATION: 05/28/2018 GASTROENTEROLOGY CONSULTATION REPORT CONSULTING PHYSICIAN: Oli Amaya M.D. CHIEF COMPLAINT: I was asked to see this patient by Dr. Jarrod Vásquez for evaluation of vomiting. HISTORY OF PRESENT ILLNESS: The patient is a pleasant 72-year-old male with multiple medical problems including a tracheostomy and gastrostomy in the hospital intensive care unit . The patient was noted also to have some nausea and vomiting today and this consultation was generated. The patient is still not able to provide any history, and most of the information is only available from the chart. The patient has had a long-term tracheostomy and gastrostomy catheter for respiratory and nutritional support. The patient has had a history of cirrhosis, although the exact etiology unclear. Hepatitis A, B, C markers were negative, but there was some suggestion that immune markings are positive. He is not a good candidate for liver biopsy. 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 FAMILY HISTORY: Noncontributory. SOCIAL HISTORY: The patient requires [id number]-thder care at this time. REVIEW OF SYSTEMS: Unobtainable. PHYSICAL EXAMINATION: GENERAL: Debilitated man, seen in the ICU. HEENT: Normocephalic and atraumatic. There is temporal wasting. NECK: Supple. CHEST: Revealed coarse breath sounds. CARDIOVASCULAR: Regular rhythm and rate. ABDOMEN: Soft, flat. Gastrostomy tube was in good position. EXTREMITIES: Revealed no edema. LABORATORY DATA: Noted. ASSESSMENT: The patient has had an episode of nausea and vomiting today, which is not recurred or resolved. The KUB is unremarkable and this may have been a transient phenomenon. Tube feedings can be restarted and gradually advance if tolerated. His liver test abnormalities are mild, but will have to be also followed. He is already on INH treatment for his tuberculosis, which has some liver risk. I would hold off on statin therapy for now since it and can be restarted a later date. The patient's alpha-fetoprotein was checked recently and was not elevated. RECOMMENDATIONS: Per above discussion and per orders written in the chart. Thank you for asking me to participate in the care of this patient. Oli Amaya M.D. DR: SHARATH JOB#: [id number] CC: CHRISTEN
--- NOTE | 2018-05-29 18:21 | Neurology Progress Note ---
Interim History Interim History Interim History Mr. Narvaez has his eyes open but is still unresponsive. He does not respond even to deep painful stimuli other than minimal non- purposeful withdrawal - left better than right. He continue to be seizure free. He continues to be acutely ill. Review of Systems Neuro Review of Systems Unable to obtain. Objective Physical Exam Last Vital Signs Date Time Temp Pulse Resp B/P (MAP) Pulse Ox O2 Delivery O2 Flow Rate FiO2 05/29/18 17:00 98.1 70 22 132/61 (84) 100 05/29/18 16:37 40 05/29/18 16:00 Mechanical Ventilator 05/27/18 07:00 15.0 Laboratory Tests Test 05/29/18 06:30 05/29/18 08:10 White Blood Count 12.6 K/UL (4.8-10.8) H Red Blood Count 3.50 M/UL (4.70-6.10) L Hemoglobin 8.8 G/DL (14.2-18.0) L Hematocrit 27.6 % (42.0-52.0) L Mean Corpuscular Volume 79 FL (80-99) L Mean Corpuscular Hemoglobin 25.2 PG (27.0-31.0) L Mean Corpuscular Hemoglobin Concent 32.0 G/DL (32.0-36.0) Red Cell Distribution Width 16.8 % (11.6-14.8) H Platelet Count 181 K/UL (150-450) Mean Platelet Volume 4.8 FL (6.5-10.1) L Neutrophils (%) (Auto) % (45.0-75.0) Lymphocytes (%) (Auto) % (20.0-45.0) Monocytes (%) (Auto) % (1.0-10.0) Eosinophils (%) (Auto) % (0.0-3.0) Basophils (%) (Auto) % (0.0-2.0) Differential Total Cells Counted 100 Neutrophils % (Manual) 90 % (45-75) H Lymphocytes % (Manual) 3 % (20-45) L Monocytes % (Manual) 7 % (1-10) Eosinophils % (Manual) 0 % (0-3) Basophils % (Manual) 0 % (0-2) Band Neutrophils 0 % (0-8) Platelet Estimate Adequate Platelet Morphology Normal Anisocytosis 1+ Sodium Level 142 MMOL/L (136-145) Potassium Level 3.7 MMOL/L (3.5-5.1) Chloride Level 108 MMOL/L (98-107) H Carbon Dioxide Level 27 MMOL/L (21-32) Anion Gap 7 mmol/L (5-15) Blood Urea Nitrogen 35 mg/dL (7-18) H Creatinine 0.7 MG/DL (0.55-1.30) Estimat Glomerular Filtration Rate mL/min (>60) Glucose Level 166 MG/DL (74-106) H Calcium Level 9.1 MG/DL (8.5-10.1) Total Bilirubin 0.5 MG/DL (0.2-1.0) Aspartate Amino Transf (AST/SGOT) 43 U/L (15-37) H Alanine Aminotransferase (ALT/SGPT) 9 U/L (12-78) L Alkaline Phosphatase 243 U/L (46-116) H Total Protein 7.0 G/DL (6.4-8.2) Albumin 1.7 G/DL (3.4-5.0) L Globulin 5.3 g/dL Albumin/Globulin Ratio 0.3 (1.0-2.7) L Arterial Blood pH 7.450 (7.350-7.450) Arterial Blood Partial Pressure CO2 39.8 mmHg (35.0-45.0) Arterial Blood Partial Pressure O2 143.3 mmHg (75.0-100.0) H Arterial Blood HCO3 27.2 mmol/L (22.0-26.0) H Arterial Blood Oxygen Saturation 98.4 % (95-100) Arterial Blood Base Excess 3.1 (-2-2) H Derek Test Positive Neurologic Exam Objective PHYSICAL EXAMINATION: GENERAL: He is a well-developed, ill-looking black gentleman, lying in an ICU bed, in no acute distress. HEAD: Normocephalic and atraumatic. EENT: Examination benign. NECK: No neck rigidity was observed. NEUROLOGICAL EXAMINATION: MENTAL STATUS EXAMINATION: He could not be aroused even on deep pain. Further mental status testing was impossible. SPEECH: Could not be tested. LANGUAGE: Could not be tested. CRANIAL NERVE EXAMINATION: II: He did not blink to threat. III, IV & : External ocular movements were present on oculocephalic maneuvers. The pupils were 3 mm in diameter, equal, round, regular, and non- reactive to light. V & VII: The corneal reflexes were present bilaterally. However, the right- sided reflex was diminished compared to the left. VIII: He did not respond to loud sounds and had no nystagmus. IX & X: Gag reflex was suppressed. XI: The sternocleidomastoids and trapezii functioned minimally. XII: The tongue was in the midline. MOTOR SYSTEM: The tone was increased in all four extremities with spasticity more marked on the right than on the left. Examination of muscle mass revealed generalized muscle wasting, again more marked on the right than on the left. He moved all extremities minimally on deep pain - left greater than right. SENSORY EXAMINATION: He moved all extremities minimally on deep pain. REFLEXES: Trace+ and bilaterally symmetrical at the biceps, triceps, brachioradialis. 0 at both knees and ankles. The plantar responses were extensor bilaterally. COORDINATION, STANCE & GAIT: Could not be tested. Impression/Recommendations Diagnostic Impression 1. Mr. Sagar Narvaez is a 72-year-old, [place] gentleman, of unknown handedness, who does have a past history of cerebrovascular disease with a prior stroke, pulmonary tuberculosis, chronic respiratory failure for which he has tracheostomy, and dysphagia for which he has a gastrostomy; who lives in senior living where he was noted to have an alteration in his mental state and multiple seizures. 2. He was brought in by the paramedics and has since been hospitalized. He was given a few doses of Ativan and was also given Versed in the ambulance. 3. He has his eyes open but is still unresponsive. He does not respond even to deep painful stimuli other than minimal non-purposeful withdrawal - left better than right. He continue to be seizure free. He continues to be acutely ill. 4. On neurological examination, at this time, he cannot be aroused even on deep pain. His corneal reflex is diminished on the right side compared to the left. He moves his extremities on deep pain - left > right. His deep tendon reflexes are globally diminished and his plantar responses are extensor bilaterally. 5. Laboratory data reveal a leukocytosis and findings consistent with a UTI. 6. 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 His recent breakthrough seizures were most probably due to his acute UTI. Recommendations 1. Continue present management. 2. Continue Keppra 1000 mg q 12 hours. 3. Aggressive treatment of UTI. 4. Observe. Mercedes Coelho M.D., MPumaSDonald. MERCEDES COELHO May 29, 2018 18:21
[2018-05-29] MEDS: Tamsulosin 0.4mg cap ORAL SCH (20:45)
--- NOTE | 2018-05-29 23:03 | General Progress Note ---
Assessment/Plan Assessment/Plan Assessment - N/V, ? transient, KUB (-) - suspected early cirrhosis based on imaging - hepatitis A/B/C negative - TRISTAN negative but F-Actin (+) - ? significance - Liver lesion, r/o HCC -->AFP normal - Elevated LFT - mainly alk phos - hypercholesterolemia - on statin - Anemia - Resp failure - pulm TB - on INH based Rx - s/p PEG and Trach Recommendations - Hold statin for now - PPI - not good candidate for liver biopsy or for steroids - watch LFT on INH - will consider MRI - would follow conservatively - continue TF - monitor residuals Subjective Allergies: Coded Allergies: No Known Allergies (Unverified , 01/27/17) Subjective Non communicative d/w form maker plaster tolerating TF (+) BM Objective Last 24 Hour Vital Signs Date Time Temp Pulse Resp B/P (MAP) Pulse Ox O2 Delivery O2 Flow Rate FiO2 05/29/18 22:53 67 22 40 05/29/18 22:53 67 22 98 Mechanical Ventilator 40 05/29/18 21:00 66 22 139/66 (90) 97 05/29/18 20:51 75 24 40 05/29/18 20:46 73 135/63 05/29/18 20:00 73 23 136/63 (87) 99 05/29/18 20:00 40 05/29/18 20:00 Mechanical Ventilator 05/29/18 20:00 73 05/29/18 19:33 74 25 100 Mechanical Ventilator 40 05/29/18 19:25 78 24 99 Mechanical Ventilator 40 05/29/18 19:23 78 24 40 05/29/18 19:00 99.1 75 23 138/66 (90) 100 05/29/18 18:00 70 23 141/66 (91) 100 05/29/18 18:00 98.7 05/29/18 17:00 98.1 70 22 132/61 (84) 100 05/29/18 16:37 71 19 40 05/29/18 16:00 Mechanical Ventilator 05/29/18 16:00 71 21 126/56 (79) 100 05/29/18 16:00 69 05/29/18 16:00 40 05/29/18 15:29 79 18 99 Mechanical Ventilator 40 05/29/18 15:19 69 20 100 Mechanical Ventilator 40 05/29/18 15:10 69 20 40 05/29/18 15:00 69 18 135/58 (83) 100 05/29/18 14:00 67 19 122/56 (78) 100 05/29/18 13:15 66 19 40 05/29/18 13:00 66 19 121/52 (75) 100 05/29/18 12:00 40 05/29/18 12:00 98.0 68 21 120/57 (78) 100 05/29/18 12:00 Mechanical Ventilator 05/29/18 12:00 70 05/29/18 11:41 70 05/29/18 11:09 68 16 99 Mechanical Ventilator 40 05/29/18 11:01 64 19 40 05/29/18 11:00 67 20 123/60 (81) 100 05/29/18 10:59 64 19 100 Mechanical Ventilator 40 05/29/18 10:00 78 19 131/56 (81) 100 05/29/18 09:18 78 135/60 05/29/18 09:17 78 135/60 05/29/18 09:02 79 18 40 05/29/18 09:00 78 19 135/60 (85) 99 05/29/18 08:00 99.3 69 20 138/56 (83) 97 05/29/18 08:00 40 05/29/18 08:00 Mechanical Ventilator 05/29/18 07:26 66 14 99 Mechanical Ventilator 40 05/29/18 07:16 68 19 97 Mechanical Ventilator 40 05/29/18 07:15 68 20 40 05/29/18 07:00 70 19 135/61 (85) 97 05/29/18 06:00 77 16 145/60 (88) 100 05/29/18 05:15 78 23 40 05/29/18 05:00 74 17 136/59 (84) 100 05/29/18 05:00 76 16 136/59 (84) 100 05/29/18 04:00 Mechanical Ventilator 05/29/18 04:00 77 05/29/18 04:00 40 05/29/18 04:00 98.8 75 17 139/60 (86) 100 05/29/18 03:40 72 12 100 Mechanical Ventilator 40 05/29/18 03:30 72 17 100 Mechanical Ventilator 40 05/29/18 03:28 72 17 40 10/25/18 03:00 70 17 140/61 (87) 100 05/29/18 02:00 72 17 120/55 (76) 100 05/29/18 01:00 70 17 127/58 (81) 100 05/29/18 00:55 68 17 40 05/29/18 00:00 40 05/29/18 00:00 Mechanical Ventilator 05/29/18 00:00 67 05/29/18 00:00 99.0 67 18 133/62 (85) 100 05/28/18 23:21 74 16 100 Mechanical Ventilator 40 05/28/18 23:11 67 17 100 Mechanical Ventilator 40 05/28/18 23:10 67 17 40 Intake and Output 05/28/18 05/29/18 19:00 07:00 Intake Total 1450 ml 1830 ml Output Total 555 ml 620 ml Balance 895 ml 1210 ml Intake Free Water 200 ml IV Total 1450 ml 1350 ml Tube Feeding 280 ml Output Urine Total 555 ml 620 ml Laboratory Tests 05/29/18 06:30: White Blood Count 12.6H, Red Blood Count 3.50L, Hemoglobin 8.8L, Hematocrit 27.6L, Mean Corpuscular Volume 79L, Mean Corpuscular Hemoglobin 25.2L, Mean Corpuscular Hemoglobin Concent 32.0, Red Cell Distribution Width 16.8H, Platelet Count 181, Mean Platelet Volume 4.8L, Neutrophils (%) (Auto) , Lymphocytes (%) (Auto) , Monocytes (%) (Auto) , Eosinophils (%) (Auto) , Basophils (%) (Auto) , Differential Total Cells Counted 100, Neutrophils % ( Manual) 90H, Lymphocytes % (Manual) 3L, Monocytes % (Manual) 7, Eosinophils % ( Manual) 0, Basophils % (Manual) 0, Band Neutrophils 0, Platelet Estimate Adequate, Platelet Morphology Normal, Anisocytosis 1+, Sodium Level 142, Potassium Level 3.7, Chloride Level 108H, Carbon Dioxide Level 27, Anion Gap 7, Blood Urea Nitrogen 35H, Creatinine 0.7, Estimat Glomerular Filtration Rate , Glucose Level 166H, Calcium Level 9.1, Total Bilirubin 0.5, Aspartate Amino Transf (AST/SGOT) 43H, Alanine Aminotransferase (ALT/SGPT) 9L, Alkaline Phosphatase 243H, Total Protein 7.0, Albumin 1.7L, Globulin 5.3, Albumin/ Globulin Ratio 0.3L 10/25/18 08:10: Arterial Blood pH 7.450, Arterial Blood Partial Pressure CO2 39.8, Arterial Blood Partial Pressure O2 143.3H, Arterial Blood HCO3 27.2H, Arterial Blood Oxygen Saturation 98.4, Arterial Blood Base Excess 3.1H, Derek Test Positive Height (Feet): 5 Height (Inches): 7.00 Weight (Pounds): 126 Objective Thin AA man NCAT neck (+) trach CTA RRR soft ND NT, (+) GT no edema OBS Oli Amaya MD May 29, 2018 23:03
[2018-05-30] VITALS (24 sets, daily range): BP systolic 110–150; BP diastolic 38–79
[2018-05-30] MEDS: Albuterol/Ipratropium 3ml neb HHN SCH ×5 (03:14→22:56)
[2018-05-30 05:53] LABS: HEMATOCRIT 24.4 % (42.0-52.0); HEMOGLOBIN 7.9 G/DL (14.2-18.0); MEAN CORPUSCULAR VOLUME 78 FL (80-99); PLATELET COUNT 180 K/UL (150-450); RED BLOOD COUNT 3.13 M/UL (4.70-6.10); RED CELL DISTRIBUTION WIDTH 16.6 % (11.6-14.8); WHITE BLOOD COUNT 6.7 K/UL (4.8-10.8)
[2018-05-30 06:15] LABS: ALANINE AMINOTRANSFERASE 11 U/L (12-78); ALBUMIN 1.5 G/DL (3.4-5.0); ALBUMIN/GLOBULIN RATIO 0.3 (1.0-2.7); ALKALINE PHOSPHATASE 226 U/L (46-116); ANION GAP 9 mmol/L (5-15); ASPARTATE AMINO TRANSFERASE 33 U/L (15-37); BILIRUBIN,TOTAL 0.6 MG/DL (0.2-1.0); BLOOD UREA NITROGEN 30 mg/dL (7-18); CALCIUM 8.8 MG/DL (8.5-10.1); CARBON DIOXIDE 26 MMOL/L (21-32); CHLORIDE 110 MMOL/L (98-107); CREATININE 0.5 MG/DL (0.55-1.30); POTASSIUM 3.7 MMOL/L (3.5-5.1); SODIUM 145 MMOL/L (136-145)
--- NOTE | 2018-05-30 08:34 | General Progress Note ---
Assessment/Plan Problem List: (1) Toxic metabolic encephalopathy ICD Codes: G92 - Toxic encephalopathy SNOMED: 744528913 (2) HTN (hypertension) ICD Codes: I10 - Essential (primary) hypertension SNOMED: 10464618 (3) Aspiration pneumonia ICD Codes: J69.0 - Pneumonitis due to inhalation of food and vomit SNOMED: 617178081 (4) Sepsis ICD Codes: A41.9 - Sepsis, unspecified organism SNOMED: 23652666 (5) Status epilepticus ICD Codes: G40.901 - Epilepsy, unspecified, not intractable, with status epilepticus SNOMED: 262046202 (6) UTI (urinary tract infection), bacterial ICD Codes: N39.0 - Urinary tract infection, site not specified; A49.9 - Bacterial infection, unspecified SNOMED: 434319366 Status: stable Assessment/Plan ivf adjusted tube feeds monitor residuals sz rx iv abx follow up cultures monitor cxr GI eval appreciated vent support resp rx Subjective ROS Limited/Unobtainable: No Constitutional: Reports: malaise, weakness HEENT: Reports: no symptoms Cardiovascular: Reports: no symptoms Respiratory: Reports: no symptoms Gastrointestinal/Abdominal: Reports: no symptoms Genitourinary: Reports: no symptoms Neurologic/Psychiatric: Reports: pre-existing deficit, seizure Endocrine: Reports: no symptoms Hematologic/Lymphatic: Reports: anemia Allergies: Coded Allergies: No Known Allergies (Unverified , 01/27/17) All Systems: reviewed and negative except above Subjective no more szs. tolerating feeds. on iv abx and ivf at tko. no fevers. on the vent. poorly responsive decrease h/h noted. no bleeding noted Objective Last 24 Hour Vital Signs Date Time Temp Pulse Resp B/P (MAP) Pulse Ox O2 Delivery O2 Flow Rate FiO2 05/30/18 08:00 40 05/30/18 07:58 80 12 100 Mechanical Ventilator 40 05/30/18 07:55 74 18 100 Mechanical Ventilator 40 05/30/18 07:54 74 18 40 05/30/18 06:00 78 19 137/56 (83) 100 05/30/18 05:05 83 19 40 05/30/18 05:00 82 18 137/79 (98) 100 05/30/18 04:00 Mechanical Ventilator 05/30/18 04:00 82 05/30/18 04:00 40 05/30/18 04:00 98.8 82 19 121/52 (75) 100 05/30/18 03:25 80 12 100 Mechanical Ventilator 40 05/30/18 03:14 79 20 100 Mechanical Ventilator 40 05/30/18 03:13 79 20 40 05/30/18 03:00 82 19 110/38 (62) 100 05/30/18 02:00 81 19 129/54 (79) 100 05/30/18 01:14 83 15 40 05/30/18 01:00 82 21 127/50 (75) 100 05/30/18 00:00 40 05/30/18 00:00 80 05/30/18 00:00 Mechanical Ventilator 05/30/18 00:00 99.0 81 22 121/48 (72) 99 05/29/18 23:02 68 21 100 Mechanical Ventilator 40 05/29/18 23:00 68 22 135/65 (88) 99 05/29/18 22:53 67 22 40 05/29/18 22:53 67 22 98 Mechanical Ventilator 40 05/29/18 22:00 66 22 135/66 (89) 98 05/29/18 21:00 66 22 139/66 (90) 97 05/29/18 20:51 75 24 40 05/29/18 20:46 73 135/63 05/29/18 20:00 73 23 136/63 (87) 99 05/29/18 20:00 40 05/29/18 20:00 Mechanical Ventilator 05/29/18 20:00 73 05/29/18 19:33 74 25 100 Mechanical Ventilator 40 05/29/18 19:25 78 24 99 Mechanical Ventilator 40 05/29/18 19:23 78 24 40 05/29/18 19:00 99.1 75 23 138/66 (90) 100 05/29/18 18:00 70 23 141/66 (91) 100 05/29/18 18:00 98.7 05/29/18 17:00 98.1 70 22 132/61 (84) 100 05/29/18 16:37 71 19 40 05/29/18 16:00 Mechanical Ventilator 05/29/18 16:00 71 21 126/56 (79) 100 05/29/18 16:00 69 05/29/18 16:00 40 10/25/18 15:29 79 18 99 Mechanical Ventilator 40 05/29/18 15:19 69 20 100 Mechanical Ventilator 40 05/29/18 15:10 69 20 40 05/29/18 15:00 69 18 135/58 (83) 100 05/29/18 14:00 67 19 122/56 (78) 100 05/29/18 13:15 66 19 40 05/29/18 13:00 66 19 121/52 (75) 100 05/29/18 12:00 40 05/29/18 12:00 98.0 68 21 120/57 (78) 100 05/29/18 12:00 Mechanical Ventilator 05/29/18 12:00 70 05/29/18 11:41 70 05/29/18 11:09 68 16 99 Mechanical Ventilator 40 05/29/18 11:01 64 19 40 05/29/18 11:00 67 20 123/60 (81) 100 05/29/18 10:59 64 19 100 Mechanical Ventilator 40 05/29/18 10:00 78 19 131/56 (81) 100 05/29/18 09:18 78 135/60 05/29/18 09:17 78 135/60 05/29/18 09:02 79 18 40 05/29/18 09:00 78 19 135/60 (85) 99 Intake and Output 05/29/18 05/30/18 18:59 06:59 Intake Total 1830 ml 1100 ml Output Total 420 ml 490 ml Balance 1410 ml 610 ml Intake Free Water 400 ml 300 ml IV Total 900 ml 200 ml Tube Feeding 530 ml 600 ml Output Urine Total 420 ml 490 ml Laboratory Tests 05/30/18 04:00: White Blood Count 6.7, Red Blood Count 3.13L, Hemoglobin 7.9L, Hematocrit 24.4L , Mean Corpuscular Volume 78L, Mean Corpuscular Hemoglobin 25.3L, Mean Corpuscular Hemoglobin Concent 32.5, Red Cell Distribution Width 16.6H, Platelet Count 180, Mean Platelet Volume 5.9L, Neutrophils (%) (Auto) , Lymphocytes (%) (Auto) , Monocytes (%) (Auto) , Eosinophils (%) (Auto) , Basophils (%) (Auto) , Neutrophils % (Manual) [Pending], Lymphocytes % (Manual) [Pending], Platelet Estimate [Pending], Platelet Morphology [Pending], Sodium Level 145, Potassium Level 3.7, Chloride Level 110H, Carbon Dioxide Level 26, Anion Gap 9, Blood Urea Nitrogen 30H, Creatinine 0.5L, Estimat Glomerular Filtration Rate , Glucose Level 78, Calcium Level 8.8, Total Bilirubin 0.6, Aspartate Amino Transf (AST/SGOT) 33, Alanine Aminotransferase (ALT/SGPT) 11L, Alkaline Phosphatase 226H, Total Protein 5.9L, Albumin 1.5L, Globulin 4.4, Albumin/Globulin Ratio 0.3L Height (Feet): 5 Height (Inches): 7.00 Weight (Pounds): 127 Objective General Appearance: WD/WN, lethargic, confused Neck: supple Cardiovascular: normal rate, regular rhythm Respiratory/Chest: rhonchi - bilaterally Abdomen: normal bowel sounds, non tender, soft, no organomegaly Edema: no edema noted Arm (L), no edema noted Arm (R), no edema noted Leg (L), no edema noted Leg (R), no edema noted Pedal (L), no edema noted Pedal (R), no edema noted Generalized Jarrod Vásquez MD May 30, 2018 08:34
[2018-05-30] MEDS: levETIRAcetam 1,000mg/NS100ml 100 ML IVPB SCH ×2 (08:57→21:23)
[2018-05-30] MEDS: Isoniazid 300mg tab ORAL SCH (09:00)
[2018-05-30] MEDS: Minocycline HCl 50mg cap ORAL SCH ×2 (09:00→21:24)
[2018-05-30] MEDS: Pyridoxine 50mg tab ORAL SCH (09:01)
[2018-05-30] MEDS: Aspirin Baby 81mg ORAL SCH (09:01)
[2018-05-30] MEDS: Ascorbic Acid 500mg tab ORAL SCH (09:01)
[2018-05-30] MEDS: Multivitamin w/Minerals tab ORAL SCH (09:02)
[2018-05-30] MEDS: Doxazosin 1mg Tab ORAL SCH (09:02)
[2018-05-30] MEDS: Metoprolol Tartrate 50mg tab ORAL SCH ×2 (09:02→21:24)
--- NOTE | 2018-05-30 14:42 | Pulmonolgy Critical Care Note ---
Critical Care - Asmt/Plan Assessment/Plan: Pulmonary CCM FU Note 72-year-old male with multiple medical problems including stroke and respiratory failure, presents with active seizures. The patient with history of tracheostomy and respiratory failure. The patient with recent hospitalization at [facility] where he was diagnosed with pulmonary tuberculosis and recent hospitalization at [place] for prolonged respiratory failure. The patient was unable to wean off the respirator and was transferred to subacute. Patient is G-tube/trach/vent dependent. Patient was noted to be actively seizing and controlled in the ER but remains less responsive. The patient was brought in for evaluation for ongoing management. I was called to assist with pulmonary status and further evaluation recommendations. The patient chart was reviewed. The care discussed with the primary MD. The patient currently comfortable on the ventilator care and chart discussed PMH Aspiration pneumonia Fungal UTI Respiratory failure with hypoxemia Dysphagia, status post PEG Malfunctioning G-tube ,status post replacement Hypoxemia Cerebrovascular disease with dementia Chronic diastolic congestive heart failure Electrolyte abnormalities: hypokalemia ,hypomagnesemia ,hyponatremia Microcytic anemia, suspecting blood loss Abnormal LFT Severe protein calorie malnutrition Seizure disorder BPH MEDS reviewed and reconciled SOCIAL HISTORY snf patient; disabled ROS unable PHYSICAL Sp02 EP Interpretation: reviewed, normal General Appearance: chronically ill appearing Head: normocephalic, atraumatic Eyes: bilateral eye normal inspection ENT: dry Neck: trach, carotid 2+ Respiratory: decreased breath sounds, scattered rhonchi bilaterally; no wheeze Cardiovascular : regular rate, rhythm, no murmur without MRG Gastrointestinal: non tender, soft, non-distended, no guarding, no rebound; GT Musculoskeletal: no CCE poorly responsive skin noted Labs Test 05/27/18 03:46 05/27/18 04:00 05/27/18 11:25 Arterial Blood pH 7.338 (7.350-7.450) Arterial Blood Partial Pressure CO2 57.0 mmHg (35.0-45.0) Arterial Blood Partial Pressure O2 101.7 mmHg (75.0-100.0) Arterial Blood HCO3 29.9 mmol/L (22.0-26.0) Arterial Blood Oxygen Saturation 97.0 % (95-100) Arterial Blood Base Excess 3.1 (-2-2) Derek Test Positive White Blood Count 12.1 K/UL (4.8-10.8) Red Blood Count 4.46 M/UL (4.70-6.10) Hemoglobin 11.0 G/DL (14.2-18.0) Hematocrit 35.0 % (42.0-52.0) Mean Corpuscular Volume 78 FL (80-99) Mean Corpuscular Hemoglobin 24.6 PG (27.0-31.0) Mean Corpuscular Hemoglobin Concent 31.4 G/DL (32.0-36.0) Red Cell Distribution Width 16.8 % (11.6-14.8) Platelet Count 337 K/UL (150-450) Mean Platelet Volume 5.1 FL (6.5-10.1) Neutrophils (%) (Auto) % (45.0-75.0) Lymphocytes (%) (Auto) % (20.0-45.0) Monocytes (%) (Auto) % (1.0-10.0) Eosinophils (%) (Auto) % (0.0-3.0) Basophils (%) (Auto) % (0.0-2.0) Urine Color Yellow Urine Appearance Slightly cloudy Urine pH 6.5 (4.5-8.0) Urine Specific [place] 1.015 (1.005-1.035) Urine Protein 3+ (NEGATIVE) Urine Glucose (UA) Negative (NEGATIVE) Urine Ketones Negative (NEGATIVE) Urine Blood 3+ (NEGATIVE) Urine Nitrite Negative (NEGATIVE) Urine Bilirubin Negative (NEGATIVE) Urine Urobilinogen 1 MG/DL (0.0-1.0) Urine Leukocyte Esterase 3+ (NEGATIVE) Urine RBC 10-15 /HPF (0 - 0) Urine WBC 40-60 /HPF (0 - 0) Urine Squamous Epithelial Cells Few /LPF (NONE/OCC) Urine Bacteria Moderate /HPF (NONE) Urine Coarse Granular Casts 0-2 /LPF (NONE) Urine Yeast Few /HPF (NONE) Sodium Level 139 MMOL/L (136-145) Potassium Level 5.2 MMOL/L (3.5-5.1) Chloride Level 103 MMOL/L (98-107) Carbon Dioxide Level 29 MMOL/L (21-32) Anion Gap 8 mmol/L (5-15) Blood Urea Nitrogen 25 mg/dL (7-18) Creatinine 0.7 MG/DL (0.55-1.30) Estimat Glomerular Filtration Rate mL/min (>60) Glucose Level 102 MG/DL (74-106) Lactic Acid Level 2.40 mmol/L (0.4-2.0) 2.20 mmol/L (0.66-2.22) Calcium Level 9.4 MG/DL (8.5-10.1) Phosphorus Level 4.9 MG/DL (2.5-4.9) Magnesium Level 1.8 MG/DL (1.8-2.4) Total Bilirubin 0.6 MG/DL (0.2-1.0) Aspartate Amino Transf (AST/SGOT) 48 U/L (15-37) Alanine Aminotransferase (ALT/SGPT) 18 U/L (12-78) Alkaline Phosphatase 444 U/L (46-116) Total Creatine Kinase 36 U/L (26-308) Creatine Kinase MB 0.6 NG/ML (0.0-3.6) Creatine Kinase MB Relative Index 1.6 Troponin I 0.014 ng/mL (0.000-0.056) Pro-B-Type Natriuretic Peptide 614 pg/mL (0-125) Total Protein 7.9 G/DL (6.4-8.2) Albumin 2.1 G/DL (3.4-5.0) Globulin 5.8 g/dL Albumin/Globulin Ratio 0.4 (1.0-2.7) IMPRESSION respiratory failure seizure possible sepsis chronic encephalopathy protein calorie malnutrition trach leukocytosis pulmonary TB debility hypoxemia htn PLAN ID reviewed neuro noted care noted IV antibiotics respiratory care as is aspiration precautions supportive care and monitor suction PRN follow clinically oxygen therapy vent management prognosis guarded acute and requires continued ICU care Critical Care - Objective Last 24 Hour Vital Signs Date Time Temp Pulse Resp B/P (MAP) Pulse Ox O2 Delivery O2 Flow Rate FiO2 05/30/18 13:00 72 22 133/62 (85) 100 05/30/18 12:54 35 05/30/18 12:53 78 13 35 05/30/18 12:00 99.0 75 24 134/61 (85) 100 05/30/18 12:00 40 05/30/18 12:00 Mechanical Ventilator 05/30/18 12:00 75 05/30/18 11:06 72 20 100 Mechanical Ventilator 40 05/30/18 11:04 70 13 40 05/30/18 11:00 73 23 128/61 (83) 100 05/30/18 10:51 70 12 100 Mechanical Ventilator 40 05/30/18 10:00 70 20 127/61 (83) 100 05/30/18 09:26 95 23 40 05/30/18 09:02 82 140/61 05/30/18 09:02 82 140/61 05/30/18 09:00 78 20 140/61 (87) 100 05/30/18 08:00 77 20 146/62 (90) 100 05/30/18 08:00 72 05/30/18 08:00 40 05/30/18 08:00 Mechanical Ventilator 05/30/18 07:58 80 12 100 Mechanical Ventilator 40 05/30/18 07:55 74 18 100 Mechanical Ventilator 40 05/30/18 07:54 74 18 40 05/30/18 07:00 99.6 78 19 126/55 (78) 100 05/30/18 06:00 78 19 137/56 (83) 100 05/30/18 05:05 83 19 40 05/30/18 05:00 82 18 137/79 (98) 100 05/30/18 04:00 Mechanical Ventilator 05/30/18 04:00 82 05/30/18 04:00 40 05/30/18 04:00 98.8 82 19 121/52 (75) 100 05/30/18 03:25 80 12 100 Mechanical Ventilator 40 05/30/18 03:14 79 20 100 Mechanical Ventilator 40 05/30/18 03:13 79 20 40 05/30/18 03:00 82 19 110/38 (62) 100 05/30/18 02:00 81 19 129/54 (79) 100 05/30/18 01:14 83 15 40 05/30/18 01:00 82 21 127/50 (75) 100 05/30/18 00:00 40 05/30/18 00:00 80 05/30/18 00:00 Mechanical Ventilator 05/30/18 00:00 99.0 81 22 121/48 (72) 99 05/29/18 23:02 68 21 100 Mechanical Ventilator 40 05/29/18 23:00 68 22 135/65 (88) 99 05/29/18 22:53 67 22 40 05/29/18 22:53 67 22 98 Mechanical Ventilator 40 05/29/18 22:00 66 22 135/66 (89) 98 05/29/18 21:00 66 22 139/66 (90) 97 05/29/18 20:51 75 24 40 05/29/18 20:46 73 135/63 05/29/18 20:00 73 23 136/63 (87) 99 05/29/18 20:00 40 05/29/18 20:00 Mechanical Ventilator 05/29/18 20:00 73 05/29/18 19:33 74 25 100 Mechanical Ventilator 40 05/29/18 19:25 78 24 99 Mechanical Ventilator 40 05/29/18 19:23 78 24 40 05/29/18 19:00 99.1 75 23 138/66 (90) 100 05/29/18 18:00 70 23 141/66 (91) 100 05/29/18 18:00 98.7 05/29/18 17:00 98.1 70 22 132/61 (84) 100 05/29/18 16:37 71 19 40 05/29/18 16:00 Mechanical Ventilator 05/29/18 16:00 71 21 126/56 (79) 100 05/29/18 16:00 69 05/29/18 16:00 40 05/29/18 15:29 79 18 99 Mechanical Ventilator 40 05/29/18 15:19 69 20 100 Mechanical Ventilator 40 05/29/18 15:10 69 20 40 05/29/18 15:00 69 18 135/58 (83) 100 Critical Care - Subjective ROS Limited/Unobtainable: Yes Condition: stable FI02: 35 Vent Support Breath Rate: 12 Vent Support Mode: AC Vent Tidal Volume: 500 Sputum Amount: Scant PEEP: 5.0 PIP: 22 Tube Feeding Amount: 50 I&O: Intake and Output 05/29/18 05/30/18 19:00 07:00 Intake Total 1640 ml 1100 ml Output Total 410 ml 475 ml Balance 1230 ml 625 ml Intake Free Water 300 ml 300 ml IV Total 800 ml 200 ml Tube Feeding 540 ml 600 ml Output Urine Total 410 ml 475 ml Jones Rasmussen MD May 30, 2018 14:42
--- NOTE | 2018-05-30 15:22 | General Surgery Progress Note ---
General Surgery-Progress Note Subjective Additional Comments intubated and unresponsive in ICU. leukocytosis resolved. improving Objective Last 24 Hour Vital Signs Date Time Temp Pulse Resp B/P (MAP) Pulse Ox O2 Delivery O2 Flow Rate FiO2 05/30/18 15:10 69 12 100 Mechanical Ventilator 30 05/30/18 15:06 77 20 100 Mechanical Ventilator 30 05/30/18 15:05 67 20 30 05/30/18 14:00 68 23 133/63 (86) 100 05/30/18 13:00 72 22 133/62 (85) 100 05/30/18 12:54 35 05/30/18 12:53 78 13 35 05/30/18 12:00 99.0 75 24 134/61 (85) 100 05/30/18 12:00 40 05/30/18 12:00 Mechanical Ventilator 05/30/18 12:00 75 05/30/18 11:06 72 20 100 Mechanical Ventilator 40 05/30/18 11:04 70 13 40 05/30/18 11:00 73 23 128/61 (83) 100 05/30/18 10:51 70 12 100 Mechanical Ventilator 40 05/30/18 10:00 70 20 127/61 (83) 100 05/30/18 09:26 95 23 40 05/30/18 09:02 82 140/61 05/30/18 09:02 82 140/61 05/30/18 09:00 78 20 140/61 (87) 100 05/30/18 08:00 77 20 146/62 (90) 100 05/30/18 08:00 72 05/30/18 08:00 40 05/30/18 08:00 Mechanical Ventilator 05/30/18 07:58 80 12 100 Mechanical Ventilator 40 05/30/18 07:55 74 18 100 Mechanical Ventilator 40 05/30/18 07:54 74 18 40 05/30/18 07:00 99.6 78 19 126/55 (78) 100 05/30/18 06:00 78 19 137/56 (83) 100 05/30/18 05:05 83 19 40 05/30/18 05:00 82 18 137/79 (98) 100 05/30/18 04:00 Mechanical Ventilator 05/30/18 04:00 82 05/30/18 04:00 40 05/30/18 04:00 98.8 82 19 121/52 (75) 100 05/30/18 03:25 80 12 100 Mechanical Ventilator 40 05/30/18 03:14 79 20 100 Mechanical Ventilator 40 05/30/18 03:13 79 20 40 05/30/18 03:00 82 19 110/38 (62) 100 05/30/18 02:00 81 19 129/54 (79) 100 05/30/18 01:14 83 15 40 05/30/18 01:00 82 21 127/50 (75) 100 05/30/18 00:00 40 05/30/18 00:00 80 05/30/18 00:00 Mechanical Ventilator 05/30/18 00:00 99.0 81 22 121/48 (72) 99 05/29/18 23:02 68 21 100 Mechanical Ventilator 40 05/29/18 23:00 68 22 135/65 (88) 99 05/29/18 22:53 67 22 40 05/29/18 22:53 67 22 98 Mechanical Ventilator 40 05/29/18 22:00 66 22 135/66 (89) 98 05/29/18 21:00 66 22 139/66 (90) 97 05/29/18 20:51 75 24 40 05/29/18 20:46 73 135/63 05/29/18 20:00 73 23 136/63 (87) 99 05/29/18 20:00 40 05/29/18 20:00 Mechanical Ventilator 05/29/18 20:00 73 05/29/18 19:33 74 25 100 Mechanical Ventilator 40 05/29/18 19:25 78 24 99 Mechanical Ventilator 40 05/29/18 19:23 78 24 40 05/29/18 19:00 99.1 75 23 138/66 (90) 100 05/29/18 18:00 70 23 141/66 (91) 100 05/29/18 18:00 98.7 05/29/18 17:00 98.1 70 22 132/61 (84) 100 05/29/18 16:37 71 19 40 05/29/18 16:00 Mechanical Ventilator 05/29/18 16:00 71 21 126/56 (79) 100 05/29/18 16:00 69 05/29/18 16:00 40 05/29/18 15:29 79 18 99 Mechanical Ventilator 40 I&O Intake and Output 05/29/18 05/30/18 19:00 07:00 Intake Total 1640 ml 1100 ml Output Total 410 ml 475 ml Balance 1230 ml 625 ml Intake Free Water 300 ml 300 ml IV Total 800 ml 200 ml Tube Feeding 540 ml 600 ml Output Urine Total 410 ml 475 ml Dressing: other Wound: other Drains: other Cardiovascular: RSR Respiratory: decreased breath sounds Abdomen: soft, flat, present bowel sounds Extremities: other Laboratory Tests Test 05/30/18 04:00 White Blood Count 6.7 K/UL (4.8-10.8) Red Blood Count 3.13 M/UL (4.70-6.10) L Hemoglobin 7.9 G/DL (14.2-18.0) L Hematocrit 24.4 % (42.0-52.0) L Mean Corpuscular Volume 78 FL (80-99) L Mean Corpuscular Hemoglobin 25.3 PG (27.0-31.0) L Mean Corpuscular Hemoglobin Concent 32.5 G/DL (32.0-36.0) Red Cell Distribution Width 16.6 % (11.6-14.8) H Platelet Count 180 K/UL (150-450) Mean Platelet Volume 5.9 FL (6.5-10.1) L Neutrophils (%) (Auto) % (45.0-75.0) Lymphocytes (%) (Auto) % (20.0-45.0) Monocytes (%) (Auto) % (1.0-10.0) Eosinophils (%) (Auto) % (0.0-3.0) Basophils (%) (Auto) % (0.0-2.0) Differential Total Cells Counted 100 Neutrophils % (Manual) 83 % (45-75) H Lymphocytes % (Manual) 11 % (20-45) L Monocytes % (Manual) 2 % (1-10) Eosinophils % (Manual) 4 % (0-3) H Basophils % (Manual) 0 % (0-2) Band Neutrophils 0 % (0-8) Platelet Estimate Adequate Platelet Morphology Normal Microcytosis 2+ Sodium Level 145 MMOL/L (136-145) Potassium Level 3.7 MMOL/L (3.5-5.1) Chloride Level 110 MMOL/L (98-107) H Carbon Dioxide Level 26 MMOL/L (21-32) Anion Gap 9 mmol/L (5-15) Blood Urea Nitrogen 30 mg/dL (7-18) H Creatinine 0.5 MG/DL (0.55-1.30) L Estimat Glomerular Filtration Rate mL/min (>60) Glucose Level 78 MG/DL (74-106) Calcium Level 8.8 MG/DL (8.5-10.1) Total Bilirubin 0.6 MG/DL (0.2-1.0) Aspartate Amino Transf (AST/SGOT) 33 U/L (15-37) Alanine Aminotransferase (ALT/SGPT) 11 U/L (12-78) L Alkaline Phosphatase 226 U/L (46-116) H Total Protein 5.9 G/DL (6.4-8.2) L Albumin 1.5 G/DL (3.4-5.0) L Globulin 4.4 g/dL Albumin/Globulin Ratio 0.3 (1.0-2.7) L Plan Problems: (1) Decubitus ulcer Assessment & Plan: Right hip decubitus ulcer approximately 3cm x 3cm and full thickness. 20% sloth. no odor. no drainage. no signs of active infection. chronic and seems to be slowly healing with some granulation tissue. sacral dti without open skin. no drainage. no signs of infection. signs of prior healing wound noted. all wounds present upon admission and will be cared for during hospital stay. -cont with current medical treatment plan -nutritional support with feeds -turn q2h -air soft mattress -heel protectors -clean sacral area and apply foam dressing q7d and prn -clean right hip wound with NS, apply therahoney and cover with foam dressing thank you Zev Candelaria May 30, 2018 15:22
--- NOTE | 2018-05-30 15:34 | Neurology Progress Note ---
Interim History Interim History Interim History Mr. Narvaez has his eyes open but is unresponsive. He does not respond even to deep painful stimuli other than minimal non- purposeful withdrawal - left better than right. He continue to be seizure free. He continues to be acutely ill. Review of Systems Neuro Review of Systems Unable to obtain. Objective Physical Exam Last Vital Signs Date Time Temp Pulse Resp B/P (MAP) Pulse Ox O2 Delivery O2 Flow Rate FiO2 05/30/18 15:10 69 12 100 Mechanical Ventilator 30 05/30/18 14:00 133/63 (86) 05/30/18 12:00 99.0 05/27/18 07:00 15.0 Laboratory Tests Test 05/30/18 04:00 White Blood Count 6.7 K/UL (4.8-10.8) Red Blood Count 3.13 M/UL (4.70-6.10) L Hemoglobin 7.9 G/DL (14.2-18.0) L Hematocrit 24.4 % (42.0-52.0) L Mean Corpuscular Volume 78 FL (80-99) L Mean Corpuscular Hemoglobin 25.3 PG (27.0-31.0) L Mean Corpuscular Hemoglobin Concent 32.5 G/DL (32.0-36.0) Red Cell Distribution Width 16.6 % (11.6-14.8) H Platelet Count 180 K/UL (150-450) Mean Platelet Volume 5.9 FL (6.5-10.1) L Neutrophils (%) (Auto) % (45.0-75.0) Lymphocytes (%) (Auto) % (20.0-45.0) Monocytes (%) (Auto) % (1.0-10.0) Eosinophils (%) (Auto) % (0.0-3.0) Basophils (%) (Auto) % (0.0-2.0) Differential Total Cells Counted 100 Neutrophils % (Manual) 83 % (45-75) H Lymphocytes % (Manual) 11 % (20-45) L Monocytes % (Manual) 2 % (1-10) Eosinophils % (Manual) 4 % (0-3) H Basophils % (Manual) 0 % (0-2) Band Neutrophils 0 % (0-8) Platelet Estimate Adequate Platelet Morphology Normal Microcytosis 2+ Sodium Level 145 MMOL/L (136-145) Potassium Level 3.7 MMOL/L (3.5-5.1) Chloride Level 110 MMOL/L (98-107) H Carbon Dioxide Level 26 MMOL/L (21-32) Anion Gap 9 mmol/L (5-15) Blood Urea Nitrogen 30 mg/dL (7-18) H Creatinine 0.5 MG/DL (0.55-1.30) L Estimat Glomerular Filtration Rate mL/min (>60) Glucose Level 78 MG/DL (74-106) Calcium Level 8.8 MG/DL (8.5-10.1) Total Bilirubin 0.6 MG/DL (0.2-1.0) Aspartate Amino Transf (AST/SGOT) 33 U/L (15-37) Alanine Aminotransferase (ALT/SGPT) 11 U/L (12-78) L Alkaline Phosphatase 226 U/L (46-116) H Total Protein 5.9 G/DL (6.4-8.2) L Albumin 1.5 G/DL (3.4-5.0) L Globulin 4.4 g/dL Albumin/Globulin Ratio 0.3 (1.0-2.7) L Neurologic Exam Objective PHYSICAL EXAMINATION: GENERAL: He is a well-developed, ill-looking black gentleman, lying in an ICU bed, in no acute distress. HEAD: Normocephalic and atraumatic. EENT: Examination benign. NECK: No neck rigidity was observed. NEUROLOGICAL EXAMINATION: MENTAL STATUS EXAMINATION: He could not be aroused even on deep pain. Further mental status testing was impossible. SPEECH: Could not be tested. LANGUAGE: Could not be tested. CRANIAL NERVE EXAMINATION: II: He did not blink to threat. III, IV & : External ocular movements were present on oculocephalic maneuvers. The pupils were 3 mm in diameter, equal, round, regular, and non- reactive to light. V & VII: The corneal reflexes were present bilaterally. However, the right- sided reflex was diminished compared to the left. VIII: He did not respond to loud sounds and had no nystagmus. IX & X: Gag reflex was suppressed. XI: The sternocleidomastoids and trapezii functioned minimally. XII: The tongue was in the midline. MOTOR SYSTEM: The tone was increased in all four extremities with spasticity more marked on the right than on the left. Examination of muscle mass revealed generalized muscle wasting, again more marked on the right than on the left. He moved all extremities minimally on deep pain - left greater than right. SENSORY EXAMINATION: He moved all extremities minimally on deep pain. REFLEXES: Trace+ and bilaterally symmetrical at the biceps, triceps, brachioradialis. 0 at both knees and ankles. The plantar responses were extensor bilaterally. COORDINATION, STANCE & GAIT: Could not be tested. Impression/Recommendations Diagnostic Impression 1. Mr. Sagar Narvaez is a 72-year-old, [place] gentleman, of unknown handedness, who does have a past history of cerebrovascular disease with a prior stroke, pulmonary tuberculosis, chronic respiratory failure for which he has tracheostomy, and dysphagia for which he has a gastrostomy; who lives [facility] where he was noted to have an alteration in his mental state and multiple seizures. 2. He was brought in by the paramedics and has since been hospitalized. He was given a few doses of Ativan and was also given Versed in the ambulance. 3. He has his eyes open but is still unresponsive. He does not respond even to deep painful stimuli other than minimal non-purposeful withdrawal - left better than right. He continue to be seizure free. He continues to be acutely ill. 4. On neurological examination, at this time, he cannot be aroused even on deep pain. His corneal reflex is diminished on the right side compared to the left. He moves his extremities on deep pain - left > right. His deep tendon reflexes are globally diminished and his plantar responses are extensor bilaterally. 5. Laboratory data reveal a leukocytosis and findings consistent with a UTI. 6. 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 His recent breakthrough seizures were most probably due to his acute UTI. Recommendations 1. Continue present management. 2. Continue Keppra 1000 mg q 12 hours. 3. Aggressive treatment of UTI. 4. Observe. Mercedes Coelho M.D., M.S.P.Rosa M. MERCEDES COELHO May 30, 2018 15:34
--- NOTE | 2018-05-30 18:55 | General Progress Note ---
Assessment/Plan Assessment/Plan Assessment - N/V, ? transient, KUB (-) - suspected early cirrhosis based on imaging - hepatitis A/B/C negative - TRISTAN negative but F-Actin (+) - ? 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 tolerating TF (+) BM Objective Last 24 Hour Vital Signs Date Time Temp Pulse Resp B/P (MAP) Pulse Ox O2 Delivery O2 Flow Rate FiO2 05/30/18 18:44 62 20 30 05/30/18 18:44 62 20 100 Mechanical Ventilator 30 05/30/18 18:00 65 20 139/59 (85) 100 05/30/18 17:00 65 21 135/62 (86) 100 05/30/18 16:39 66 20 30 05/30/18 16:00 68 05/30/18 16:00 98.4 66 20 130/65 (86) 100 05/30/18 16:00 Mechanical Ventilator 05/30/18 15:10 69 12 100 Mechanical Ventilator 30 05/30/18 15:06 77 20 100 Mechanical Ventilator 30 05/30/18 15:05 67 20 30 05/30/18 15:00 68 21 138/64 (88) 100 05/30/18 14:00 68 23 133/63 (86) 100 05/30/18 13:00 72 22 133/62 (85) 100 05/30/18 12:54 35 05/30/18 12:53 78 13 35 05/30/18 12:00 99.0 75 24 134/61 (85) 100 05/30/18 12:00 40 05/30/18 12:00 Mechanical Ventilator 05/30/18 12:00 75 05/30/18 11:06 72 20 100 Mechanical Ventilator 40 05/30/18 11:04 70 13 40 05/30/18 11:00 73 23 128/61 (83) 100 10/26/18 10:51 70 12 100 Mechanical Ventilator 40 05/30/18 10:00 70 20 127/61 (83) 100 05/30/18 09:26 95 23 40 05/30/18 09:02 82 140/61 05/30/18 09:02 82 140/61 05/30/18 09:00 78 20 140/61 (87) 100 05/30/18 08:00 77 20 146/62 (90) 100 05/30/18 08:00 72 05/30/18 08:00 40 05/30/18 08:00 Mechanical Ventilator 05/30/18 07:58 80 12 100 Mechanical Ventilator 40 05/30/18 07:55 74 18 100 Mechanical Ventilator 40 05/30/18 07:54 74 18 40 05/30/18 07:00 99.6 78 19 126/55 (78) 100 05/30/18 06:00 78 19 137/56 (83) 100 05/30/18 05:05 83 19 40 05/30/18 05:00 82 18 137/79 (98) 100 05/30/18 04:00 Mechanical Ventilator 05/30/18 04:00 82 05/30/18 04:00 40 05/30/18 04:00 98.8 82 19 121/52 (75) 100 05/30/18 03:25 80 12 100 Mechanical Ventilator 40 05/30/18 03:14 79 20 100 Mechanical Ventilator 40 05/30/18 03:13 79 20 40 05/30/18 03:00 82 19 110/38 (62) 100 05/30/18 02:00 81 19 129/54 (79) 100 05/30/18 01:14 83 15 40 05/30/18 01:00 82 21 127/50 (75) 100 05/30/18 00:00 40 05/30/18 00:00 80 05/30/18 00:00 Mechanical Ventilator 05/30/18 00:00 99.0 81 22 121/48 (72) 99 05/29/18 23:02 68 21 100 Mechanical Ventilator 40 05/29/18 23:00 68 22 135/65 (88) 99 05/29/18 22:53 67 22 40 05/29/18 22:53 67 22 98 Mechanical Ventilator 40 05/29/18 22:00 66 22 135/66 (89) 98 05/29/18 21:00 66 22 139/66 (90) 97 05/29/18 20:51 75 24 40 05/29/18 20:46 73 135/63 05/29/18 20:00 73 23 136/63 (87) 99 05/29/18 20:00 40 05/29/18 20:00 Mechanical Ventilator 05/29/18 20:00 73 05/29/18 19:33 74 25 100 Mechanical Ventilator 40 05/29/18 19:25 78 24 99 Mechanical Ventilator 40 05/29/18 19:23 78 24 40 05/29/18 19:00 99.1 75 23 138/66 (90) 100 Intake and Output 05/29/18 05/30/18 19:00 07:00 Intake Total 1640 ml 1100 ml Output Total 410 ml 475 ml Balance 1230 ml 625 ml Intake Free Water 300 ml 300 ml IV Total 800 ml 200 ml Tube Feeding 540 ml 600 ml Output Urine Total 410 ml 475 ml Laboratory Tests 05/30/18 04:00: White Blood Count 6.7, Red Blood Count 3.13L, Hemoglobin 7.9L, Hematocrit 24.4L , Mean Corpuscular Volume 78L, Mean Corpuscular Hemoglobin 25.3L, Mean Corpuscular Hemoglobin Concent 32.5, Red Cell Distribution Width 16.6H, Platelet Count 180, Mean Platelet Volume 5.9L, Neutrophils (%) (Auto) , Lymphocytes (%) (Auto) , Monocytes (%) (Auto) , Eosinophils (%) (Auto) , Basophils (%) (Auto) , Differential Total Cells Counted 100, Neutrophils % ( Manual) 83H, Lymphocytes % (Manual) 11L, Monocytes % (Manual) 2, Eosinophils % ( Manual) 4H, Basophils % (Manual) 0, Band Neutrophils 0, Platelet Estimate Adequate, Platelet Morphology Normal, Microcytosis 2+, Sodium Level 145, Potassium Level 3.7, Chloride Level 110H, Carbon Dioxide Level 26, Anion Gap 9, Blood Urea Nitrogen 30H, Creatinine 0.5L, Estimat Glomerular Filtration Rate , Glucose Level 78, Calcium Level 8.8, Total Bilirubin 0.6, Aspartate Amino Transf (AST/SGOT) 33, Alanine Aminotransferase (ALT/SGPT) 11L, Alkaline Phosphatase 226H, Total Protein 5.9L, Albumin 1.5L, Globulin 4.4, Albumin/ Globulin Ratio 0.3L Height (Feet): 5 Height (Inches): 7.00 Weight (Pounds): 127 Objective Thin AA man NCAT neck (+) trach CTA RRR soft ND NT, (+) GT no edema OBS Oli Amaya MD May 30, 2018 18:55
[2018-05-30] MEDS: Tamsulosin 0.4mg cap ORAL SCH (21:23)
--- NOTE | 2018-05-30 22:22 | Pulmonolgy Critical Care Note ---
Critical Care - Asmt/Plan Assessment/Plan: Pulmonary CCM FU Note 72-year-old male with multiple medical problems including stroke and respiratory failure, presents with active seizures. The patient with history of tracheostomy and respiratory failure. The patient with recent hospitalization at [facility] where he was diagnosed with pulmonary tuberculosis and recent hospitalization at [place] for prolonged respiratory failure. The patient was unable to wean off the respirator and was transferred to subacute. Patient is G-tube/trach/vent dependent. Patient was noted to be actively seizing and controlled in the ER but remains less responsive. The patient was brought in for evaluation for ongoing management. I was called to assist with pulmonary status and further evaluation recommendations. The patient chart was reviewed. The care discussed with the primary MD. The patient currently comfortable on the ventilator care and chart discussed PMH Aspiration pneumonia Fungal UTI Respiratory failure with hypoxemia Dysphagia, status post PEG Malfunctioning G-tube ,status post replacement Hypoxemia Cerebrovascular disease with dementia Chronic diastolic congestive heart failure Electrolyte abnormalities: hypokalemia ,hypomagnesemia ,hyponatremia Microcytic anemia, suspecting blood loss Abnormal LFT Severe protein calorie malnutrition Seizure disorder BPH MEDS reviewed and reconciled SOCIAL HISTORY snf patient; disabled ROS unable PHYSICAL Sp02 EP Interpretation: reviewed, normal General Appearance: chronically ill appearing Head: normocephalic, atraumatic Eyes: bilateral eye normal inspection ENT: dry Neck: trach, carotid 2+ Respiratory: decreased breath sounds, scattered rhonchi bilaterally; no wheeze Cardiovascular : regular rate, rhythm, no murmur without MRG Gastrointestinal: non tender, soft, non-distended, no guarding, no rebound; GT Musculoskeletal: no CCE poorly responsive skin noted Labs Test 05/27/18 03:46 05/27/18 04:00 05/27/18 11:25 Arterial Blood pH 7.338 (7.350-7.450) Arterial Blood Partial Pressure CO2 57.0 mmHg (35.0-45.0) Arterial Blood Partial Pressure O2 101.7 mmHg (75.0-100.0) Arterial Blood HCO3 29.9 mmol/L (22.0-26.0) Arterial Blood Oxygen Saturation 97.0 % (95-100) Arterial Blood Base Excess 3.1 (-2-2) Derek Test Positive White Blood Count 12.1 K/UL (4.8-10.8) Red Blood Count 4.46 M/UL (4.70-6.10) Hemoglobin 11.0 G/DL (14.2-18.0) Hematocrit 35.0 % (42.0-52.0) Mean Corpuscular Volume 78 FL (80-99) Mean Corpuscular Hemoglobin 24.6 PG (27.0-31.0) Mean Corpuscular Hemoglobin Concent 31.4 G/DL (32.0-36.0) Red Cell Distribution Width 16.8 % (11.6-14.8) Platelet Count 337 K/UL (150-450) Mean Platelet Volume 5.1 FL (6.5-10.1) Neutrophils (%) (Auto) % (45.0-75.0) Lymphocytes (%) (Auto) % (20.0-45.0) Monocytes (%) (Auto) % (1.0-10.0) Eosinophils (%) (Auto) % (0.0-3.0) Basophils (%) (Auto) % (0.0-2.0) Urine Color Yellow Urine Appearance Slightly cloudy Urine pH 6.5 (4.5-8.0) Urine Specific [place] 1.015 (1.005-1.035) Urine Protein 3+ (NEGATIVE) Urine Glucose (UA) Negative (NEGATIVE) Urine Ketones Negative (NEGATIVE) Urine Blood 3+ (NEGATIVE) Urine Nitrite Negative (NEGATIVE) Urine Bilirubin Negative (NEGATIVE) Urine Urobilinogen 1 MG/DL (0.0-1.0) Urine Leukocyte Esterase 3+ (NEGATIVE) Urine RBC 10-15 /HPF (0 - 0) Urine WBC 40-60 /HPF (0 - 0) Urine Squamous Epithelial Cells Few /LPF (NONE/OCC) Urine Bacteria Moderate /HPF (NONE) Urine Coarse Granular Casts 0-2 /LPF (NONE) Urine Yeast Few /HPF (NONE) Sodium Level 139 MMOL/L (136-145) Potassium Level 5.2 MMOL/L (3.5-5.1) Chloride Level 103 MMOL/L (98-107) Carbon Dioxide Level 29 MMOL/L (21-32) Anion Gap 8 mmol/L (5-15) Blood Urea Nitrogen 25 mg/dL (7-18) Creatinine 0.7 MG/DL (0.55-1.30) Estimat Glomerular Filtration Rate mL/min (>60) Glucose Level 102 MG/DL (74-106) Lactic Acid Level 2.40 mmol/L (0.4-2.0) 2.20 mmol/L (0.66-2.22) Calcium Level 9.4 MG/DL (8.5-10.1) Phosphorus Level 4.9 MG/DL (2.5-4.9) Magnesium Level 1.8 MG/DL (1.8-2.4) Total Bilirubin 0.6 MG/DL (0.2-1.0) Aspartate Amino Transf (AST/SGOT) 48 U/L (15-37) Alanine Aminotransferase (ALT/SGPT) 18 U/L (12-78) Alkaline Phosphatase 444 U/L (46-116) Total Creatine Kinase 36 U/L (26-308) Creatine Kinase MB 0.6 NG/ML (0.0-3.6) Creatine Kinase MB Relative Index 1.6 Troponin I 0.014 ng/mL (0.000-0.056) Pro-B-Type Natriuretic Peptide 614 pg/mL (0-125) Total Protein 7.9 G/DL (6.4-8.2) Albumin 2.1 G/DL (3.4-5.0) Globulin 5.8 g/dL Albumin/Globulin Ratio 0.4 (1.0-2.7) IMPRESSION respiratory failure seizure possible sepsis chronic encephalopathy protein calorie malnutrition trach leukocytosis pulmonary TB debility hypoxemia htn PLAN ID reviewed neuro noted care noted IV antibiotics respiratory care as is aspiration precautions supportive care and monitor suction PRN follow clinically oxygen therapy vent management prognosis guarded acute and requires continued ICU care Critical Care - Objective Last 24 Hour Vital Signs Date Time Temp Pulse Resp B/P (MAP) Pulse Ox O2 Delivery O2 Flow Rate FiO2 05/30/18 22:00 57 18 138/79 (98) 100 05/30/18 21:24 60 129/62 05/30/18 21:12 61 18 30 05/30/18 21:00 62 19 129/62 (84) 100 05/30/18 20:00 66 05/30/18 20:00 Mechanical Ventilator 05/30/18 20:00 30 05/30/18 20:00 98.2 66 27 150/61 (90) 100 05/30/18 19:00 65 23 141/65 (90) 100 05/30/18 18:54 65 12 100 Mechanical Ventilator 30 05/30/18 18:44 62 20 30 05/30/18 18:44 62 20 100 Mechanical Ventilator 30 05/30/18 18:00 65 20 139/59 (85) 100 05/30/18 17:00 65 21 135/62 (86) 100 05/30/18 16:39 66 20 30 05/30/18 16:00 68 05/30/18 16:00 98.4 66 20 130/65 (86) 100 05/30/18 16:00 Mechanical Ventilator 05/30/18 15:10 69 12 100 Mechanical Ventilator 30 05/30/18 15:06 77 20 100 Mechanical Ventilator 30 05/30/18 15:05 67 20 30 05/30/18 15:00 68 21 138/64 (88) 100 05/30/18 14:00 68 23 133/63 (86) 100 05/30/18 13:00 72 22 133/62 (85) 100 05/30/18 12:54 35 05/30/18 12:53 78 13 35 05/30/18 12:00 99.0 75 24 134/61 (85) 100 05/30/18 12:00 40 05/30/18 12:00 Mechanical Ventilator 05/30/18 12:00 75 05/30/18 11:06 72 20 100 Mechanical Ventilator 40 05/30/18 11:04 70 13 40 05/30/18 11:00 73 23 128/61 (83) 100 05/30/18 10:51 70 12 100 Mechanical Ventilator 40 05/30/18 10:00 70 20 127/61 (83) 100 05/30/18 09:26 95 23 40 05/30/18 09:02 82 140/61 05/30/18 09:02 82 140/61 05/30/18 09:00 78 20 140/61 (87) 100 05/30/18 08:00 77 20 146/62 (90) 100 05/30/18 08:00 72 05/30/18 08:00 40 05/30/18 08:00 Mechanical Ventilator 05/30/18 07:58 80 12 100 Mechanical Ventilator 40 05/30/18 07:55 74 18 100 Mechanical Ventilator 40 05/30/18 07:54 74 18 40 05/30/18 07:00 99.6 78 19 126/55 (78) 100 05/30/18 06:00 78 19 137/56 (83) 100 05/30/18 05:05 83 19 40 05/30/18 05:00 82 18 137/79 (98) 100 05/30/18 04:00 Mechanical Ventilator 05/30/18 04:00 82 05/30/18 04:00 40 05/30/18 04:00 98.8 82 19 121/52 (75) 100 05/30/18 03:25 80 12 100 Mechanical Ventilator 40 05/30/18 03:14 79 20 100 Mechanical Ventilator 40 05/30/18 03:13 79 20 40 05/30/18 03:00 82 19 110/38 (62) 100 05/30/18 02:00 81 19 129/54 (79) 100 05/30/18 01:14 83 15 40 05/30/18 01:00 82 21 127/50 (75) 100 05/30/18 00:00 40 05/30/18 00:00 80 05/30/18 00:00 Mechanical Ventilator 05/30/18 00:00 99.0 81 22 121/48 (72) 99 05/29/18 23:02 68 21 100 Mechanical Ventilator 40 05/29/18 23:00 68 22 135/65 (88) 99 05/29/18 22:53 67 22 40 05/29/18 22:53 67 22 98 Mechanical Ventilator 40 Critical Care - Subjective ROS Limited/Unobtainable: Yes FI02: 30 Vent Support Breath Rate: 12 Vent Support Mode: AC Vent Tidal Volume: 500 Sputum Amount: Scant PEEP: 5.0 PIP: 23 Tube Feeding Amount: 50 I&O: Intake and Output 05/29/18 05/30/18 19:00 07:00 Intake Total 1640 ml 1100 ml Output Total 410 ml 475 ml Balance 1230 ml 625 ml Intake Free Water 300 ml 300 ml IV Total 800 ml 200 ml Tube Feeding 540 ml 600 ml Output Urine Total 410 ml 475 ml Jones Rasmussen MD May 30, 2018 22:22
[2018-05-31] VITALS (15 sets, daily range): BP systolic 121–160; BP diastolic 59–74
[2018-05-31] MEDS: Albuterol/Ipratropium 3ml neb HHN SCH ×6 (03:00→23:14)
--- NOTE | 2018-05-31 08:48 | General Progress Note ---
Assessment/Plan Assessment/Plan Assessment - N/V, ? transient, KUB (-) - suspected early cirrhosis based on imaging - hepatitis A/B/C negative - TRISTAN negative but F-Actin (+) - ? significance - Liver lesion, r/o HCC -->AFP normal - Elevated LFT - mainly alk phos - hypercholesterolemia - on statin - Anemia - Resp failure - pulm TB - on INH based Rx - s/p PEG and Trach Recommendations - Statin on hold - PPI - not good candidate for liver biopsy or for steroids - watch LFT on INH - will consider MRI - would follow conservatively - continue TF - monitor residuals - Poor Px Subjective ROS Limited/Unobtainable: No Allergies: Coded Allergies: No Known Allergies (Unverified , 01/27/17) Objective Last 24 Hour Vital Signs Date Time Temp Pulse Resp B/P (MAP) Pulse Ox O2 Delivery O2 Flow Rate FiO2 05/31/18 08:45 70 18 30 05/31/18 08:00 30 05/31/18 08:00 69 19 134/63 (86) 100 05/31/18 08:00 Mechanical Ventilator 05/31/18 07:00 98.8 70 18 160/74 (102) 100 05/31/18 07:00 85 22 100 Mechanical Ventilator 30 05/31/18 06:57 61 16 30 05/31/18 06:54 59 16 100 Mechanical Ventilator 30 05/31/18 06:00 63 17 153/69 (97) 100 05/31/18 05:22 63 14 30 05/31/18 05:00 71 21 152/72 (98) 100 05/31/18 04:00 30 05/31/18 04:00 98.5 65 19 142/64 (90) 100 05/31/18 04:00 Mechanical Ventilator 05/31/18 04:00 65 05/31/18 03:05 64 12 100 Mechanical Ventilator 30 05/31/18 03:00 61 16 154/71 (98) 100 05/31/18 02:58 59 12 100 Mechanical Ventilator 30 05/31/18 02:58 58 12 30 05/31/18 02:00 70 19 140/63 (88) 100 05/31/18 02:00 58 17 140/63 (88) 100 05/31/18 01:00 58 19 141/60 (87) 100 05/31/18 00:47 59 19 30 05/31/18 00:00 Mechanical Ventilator 05/31/18 00:00 98.8 60 19 139/62 (87) 100 05/30/18 23:04 63 13 100 Mechanical Ventilator 30 05/30/18 23:00 58 12 136/76 (96) 100 05/30/18 22:56 58 14 100 Mechanical Ventilator 30 05/30/18 22:56 58 12 30 05/30/18 22:00 57 18 138/79 (98) 100 05/30/18 21:24 60 129/62 05/30/18 21:12 61 18 30 05/30/18 21:00 62 19 129/62 (84) 100 05/30/18 20:00 66 05/30/18 20:00 Mechanical Ventilator 05/30/18 20:00 30 05/30/18 20:00 98.2 66 27 150/61 (90) 100 05/30/18 19:00 65 23 141/65 (90) 100 05/30/18 18:54 65 12 100 Mechanical Ventilator 30 05/30/18 18:44 62 20 30 05/30/18 18:44 62 20 100 Mechanical Ventilator 30 05/30/18 18:00 65 20 139/59 (85) 100 05/30/18 17:00 65 21 135/62 (86) 100 05/30/18 16:39 66 20 30 05/30/18 16:00 68 05/30/18 16:00 98.4 66 20 130/65 (86) 100 05/30/18 16:00 Mechanical Ventilator 05/30/18 15:10 69 12 100 Mechanical Ventilator 30 05/30/18 15:06 77 20 100 Mechanical Ventilator 30 05/30/18 15:05 67 20 30 05/30/18 15:00 68 21 138/64 (88) 100 05/30/18 14:00 68 23 133/63 (86) 100 05/30/18 13:00 72 22 133/62 (85) 100 05/30/18 12:54 35 05/30/18 12:53 78 13 35 05/30/18 12:00 99.0 75 24 134/61 (85) 100 05/30/18 12:00 40 05/30/18 12:00 Mechanical Ventilator 05/30/18 12:00 75 05/30/18 11:06 72 20 100 Mechanical Ventilator 40 05/30/18 11:04 70 13 40 05/30/18 11:00 73 23 128/61 (83) 100 05/30/18 10:51 70 12 100 Mechanical Ventilator 40 05/30/18 10:00 70 20 127/61 (83) 100 05/30/18 09:26 95 23 40 05/30/18 09:02 82 140/61 05/30/18 09:02 82 140/61 05/30/18 09:00 78 20 140/61 (87) 100 Intake and Output 05/30/18 05/31/18 19:00 07:00 Intake Total 850 ml 1000 ml Output Total 540 ml 490 ml Balance 310 ml 510 ml Intake Free Water 250 ml 100 ml IV Total 200 ml Tube Feeding 600 ml 600 ml Other 100 ml Output Urine Total 540 ml 490 ml Height (Feet): 5 Height (Inches): 7.00 Weight (Pounds): 130 General Appearance: lethargic EENT: normal ENT inspection Neck: supple Cardiovascular: normal rate Respiratory/Chest: decreased breath sounds Abdomen: normal bowel sounds, non tender, soft Extremities: non-tender Roberto Carlos Hung MD May 31, 2018 08:48
[2018-05-31] MEDS: levETIRAcetam 1,000mg/NS100ml 100 ML IVPB SCH ×2 (09:06→20:31)
[2018-05-31] MEDS: Minocycline HCl 50mg cap ORAL SCH ×2 (09:07→20:25)
[2018-05-31] MEDS: Multivitamin w/Minerals tab ORAL SCH (09:08)
[2018-05-31] MEDS: Doxazosin 1mg Tab ORAL SCH (09:08)
[2018-05-31] MEDS: Metoprolol Tartrate 50mg tab ORAL SCH ×2 (09:09→20:36)
[2018-05-31] MEDS: Pyridoxine 50mg tab ORAL SCH (09:09)
[2018-05-31] MEDS: Ascorbic Acid 500mg tab ORAL SCH (09:09)
[2018-05-31] MEDS: Isoniazid 300mg tab ORAL SCH (09:10)
[2018-05-31] MEDS: Aspirin Baby 81mg ORAL SCH (09:10)
[2018-05-31] MEDS ORDERED: Tubing IV Secondary IV ONE (10:38)
--- NOTE | 2018-05-31 11:08 | General Progress Note ---
Assessment/Plan Problem List: (1) Toxic metabolic encephalopathy ICD Codes: G92 - Toxic encephalopathy SNOMED: 903265278 (2) HTN (hypertension) ICD Codes: I10 - Essential (primary) hypertension SNOMED: 43409785 (3) Aspiration pneumonia ICD Codes: J69.0 - Pneumonitis due to inhalation of food and vomit SNOMED: 657025298 (4) Sepsis ICD Codes: A41.9 - Sepsis, unspecified organism SNOMED: 08546456 (5) Status epilepticus ICD Codes: G40.901 - Epilepsy, unspecified, not intractable, with status epilepticus SNOMED: 811627650 (6) UTI (urinary tract infection), bacterial ICD Codes: N39.0 - Urinary tract infection, site not specified; A49.9 - Bacterial infection, unspecified SNOMED: 796376679 Status: stable Assessment/Plan ivf tube feeds monitor residuals sz rx iv abx follow up cultures monitor cxr vent support resp rx Subjective ROS Limited/Unobtainable: Yes Constitutional: Reports: malaise, weakness HEENT: Reports: no symptoms Cardiovascular: Reports: no symptoms Respiratory: Reports: shortness of breath Gastrointestinal/Abdominal: Reports: difficulty swallowing Genitourinary: Reports: no symptoms Neurologic/Psychiatric: Reports: pre-existing deficit, seizure Endocrine: Reports: no symptoms Hematologic/Lymphatic: Reports: anemia Allergies: Coded Allergies: No Known Allergies (Unverified , 01/27/17) All Systems: reviewed and negative except above Subjective no more szs. tolerating feeds. on iv abx and ivf at tko. no fevers. on the vent. poorly responsive decrease h/h noted. no bleeding noted. labs pending Objective Last 24 Hour Vital Signs Date Time Temp Pulse Resp B/P (MAP) Pulse Ox O2 Delivery O2 Flow Rate FiO2 05/31/18 10:38 56 22 98 Mechanical Ventilator 30 05/31/18 10:37 55 17 30 05/31/18 10:32 56 14 98 Mechanical Ventilator 30 05/31/18 10:00 59 19 135/59 (84) 100 05/31/18 09:10 67 122/61 05/31/18 09:09 67 122/61 05/31/18 09:00 60 19 122/61 (81) 100 05/31/18 08:45 70 18 30 05/31/18 08:00 30 05/31/18 08:00 69 19 134/63 (86) 100 05/31/18 08:00 74 05/31/18 08:00 Mechanical Ventilator 05/31/18 07:00 98.8 70 18 160/74 (102) 100 05/31/18 07:00 85 22 100 Mechanical Ventilator 30 05/31/18 06:57 61 16 30 05/31/18 06:54 59 16 100 Mechanical Ventilator 30 05/31/18 06:00 63 17 153/69 (97) 100 05/31/18 05:22 63 14 30 05/31/18 05:00 71 21 152/72 (98) 100 05/31/18 04:00 30 05/31/18 04:00 98.5 65 19 142/64 (90) 100 05/31/18 04:00 Mechanical Ventilator 05/31/18 04:00 65 05/31/18 03:05 64 12 100 Mechanical Ventilator 30 05/31/18 03:00 61 16 154/71 (98) 100 05/31/18 02:58 59 12 100 Mechanical Ventilator 30 05/31/18 02:58 58 12 30 05/31/18 02:00 70 19 140/63 (88) 100 05/31/18 02:00 58 17 140/63 (88) 100 05/31/18 01:00 58 19 141/60 (87) 100 05/31/18 00:47 59 19 30 05/31/18 00:00 Mechanical Ventilator 05/31/18 00:00 98.8 60 19 139/62 (87) 100 05/30/18 23:04 63 13 100 Mechanical Ventilator 30 05/30/18 23:00 58 12 136/76 (96) 100 05/30/18 22:56 58 14 100 Mechanical Ventilator 30 05/30/18 22:56 58 12 30 05/30/18 22:00 57 18 138/79 (98) 100 05/30/18 21:24 60 129/62 05/30/18 21:12 61 18 30 05/30/18 21:00 62 19 129/62 (84) 100 05/30/18 20:00 66 05/30/18 20:00 Mechanical Ventilator 05/30/18 20:00 30 05/30/18 20:00 98.2 66 27 150/61 (90) 100 05/30/18 19:00 65 23 141/65 (90) 100 05/30/18 18:54 65 12 100 Mechanical Ventilator 30 05/30/18 18:44 62 20 30 05/30/18 18:44 62 20 100 Mechanical Ventilator 30 05/30/18 18:00 65 20 139/59 (85) 100 05/30/18 17:00 65 21 135/62 (86) 100 05/30/18 16:39 66 20 30 05/30/18 16:00 68 05/30/18 16:00 98.4 66 20 130/65 (86) 100 05/30/18 16:00 Mechanical Ventilator 05/30/18 15:10 69 12 100 Mechanical Ventilator 30 05/30/18 15:06 77 20 100 Mechanical Ventilator 30 05/30/18 15:05 67 20 30 05/30/18 15:00 68 21 138/64 (88) 100 05/30/18 14:00 68 23 133/63 (86) 100 05/30/18 13:00 72 22 133/62 (85) 100 05/30/18 12:54 35 05/30/18 12:53 78 13 35 05/30/18 12:00 99.0 75 24 134/61 (85) 100 05/30/18 12:00 40 05/30/18 12:00 Mechanical Ventilator 05/30/18 12:00 75 05/30/18 11:06 72 20 100 Mechanical Ventilator 40 05/30/18 11:04 70 13 40 Intake and Output 05/30/18 05/31/18 19:00 07:00 Intake Total 850 ml 1000 ml Output Total 540 ml 490 ml Balance 310 ml 510 ml Intake Free Water 250 ml 100 ml IV Total 200 ml Tube Feeding 600 ml 600 ml Other 100 ml Output Urine Total 540 ml 490 ml Height (Feet): 5 Height (Inches): 7.00 Weight (Pounds): 130 Objective General Appearance: WD/WN, lethargic, confused Neck: supple Cardiovascular: normal rate, regular rhythm Respiratory/Chest: rhonchi - bilaterally Abdomen: normal bowel sounds, non tender, soft, no organomegaly Edema: no edema noted Arm (L), no edema noted Arm (R), no edema noted Leg (L), no edema noted Leg (R), no edema noted Pedal (L), no edema noted Pedal (R), no edema noted Generalized Jarrod Vásquez MD May 31, 2018 11:08
[2018-05-31] MEDS ORDERED: LORazepam Inj 2mg/ml 1ml IV PRN (12:30)
[2018-05-31] MEDS ORDERED: Artificial Tears 1.4% Op Soln BOTH EYES PRN (13:00)
[2018-05-31 13:14] LABS: HEMATOCRIT 26.1 % (42.0-52.0); HEMOGLOBIN 8.2 G/DL (14.2-18.0); MEAN CORPUSCULAR VOLUME 79 FL (80-99); PLATELET COUNT 128 K/UL (150-450); RED BLOOD COUNT 3.32 M/UL (4.70-6.10); RED CELL DISTRIBUTION WIDTH 16.8 % (11.6-14.8); WHITE BLOOD COUNT 2.9 K/UL (4.8-10.8)
[2018-05-31] MEDS ORDERED: Fleet's Enema 133ml RECTAL PRN (13:15)
[2018-05-31] MEDS ORDERED: Sennosides 8.6mg tab ORAL PRN ×2 (13:15)
[2018-05-31 13:37] LABS: ALANINE AMINOTRANSFERASE 15 U/L (12-78); ALBUMIN 1.6 G/DL (3.4-5.0); ALBUMIN/GLOBULIN RATIO 0.4 (1.0-2.7); ALKALINE PHOSPHATASE 248 U/L (46-116); ANION GAP 11 mmol/L (5-15); ASPARTATE AMINO TRANSFERASE 43 U/L (15-37); BILIRUBIN,TOTAL 0.7 MG/DL (0.2-1.0); BLOOD UREA NITROGEN 26 mg/dL (7-18); CALCIUM 8.5 MG/DL (8.5-10.1); CARBON DIOXIDE 24 MMOL/L (21-32); CHLORIDE 112 MMOL/L (98-107); CREATININE 0.4 MG/DL (0.55-1.30); POTASSIUM 4.4 MMOL/L (3.5-5.1); SODIUM 147 MMOL/L (136-145)
--- NOTE | 2018-05-31 14:22 | Neurology Progress Note ---
Interim History Interim History Interim History Mr. Narvaez has his eyes open but is unresponsive. He only responds to deep painful stimuli with minimal non-purposeful withdrawal - left better than right. He continues to be seizure free. He continues to be acutely ill. There has been no significant change in his neurologic condition. He was transferred out of the ICU today. Review of Systems Neuro Review of Systems Unable to obtain. Objective Physical Exam Last Vital Signs Date Time Temp Pulse Resp B/P (MAP) Pulse Ox O2 Delivery O2 Flow Rate FiO2 05/31/18 13:09 70 05/31/18 12:36 23 30 05/31/18 12:00 Mechanical Ventilator 05/31/18 12:00 98.8 129/63 (85) 100 05/27/18 07:00 15.0 Laboratory Tests Test 05/31/18 13:00 White Blood Count 2.9 K/UL (4.8-10.8) #L Red Blood Count 3.32 M/UL (4.70-6.10) L Hemoglobin 8.2 G/DL (14.2-18.0) L Hematocrit 26.1 % (42.0-52.0) L Mean Corpuscular Volume 79 FL (80-99) L Mean Corpuscular Hemoglobin 24.8 PG (27.0-31.0) L Mean Corpuscular Hemoglobin Concent 31.6 G/DL (32.0-36.0) L Red Cell Distribution Width 16.8 % (11.6-14.8) H Platelet Count 128 K/UL (150-450) L Mean Platelet Volume 5.5 FL (6.5-10.1) L Neutrophils (%) (Auto) % (45.0-75.0) Lymphocytes (%) (Auto) % (20.0-45.0) Monocytes (%) (Auto) % (1.0-10.0) Eosinophils (%) (Auto) % (0.0-3.0) Basophils (%) (Auto) % (0.0-2.0) Differential Total Cells Counted 100 Neutrophils % (Manual) 74 % (45-75) Lymphocytes % (Manual) 16 % (20-45) L Monocytes % (Manual) 9 % (1-10) Eosinophils % (Manual) 1 % (0-3) Platelet Estimate Pending Platelet Morphology Normal Hypochromasia 1+ Anisocytosis 1+ Microcytosis 1+ Sodium Level 147 MMOL/L (136-145) H Potassium Level 4.4 MMOL/L (3.5-5.1) Chloride Level 112 MMOL/L (98-107) H Carbon Dioxide Level 24 MMOL/L (21-32) Anion Gap 11 mmol/L (5-15) Blood Urea Nitrogen 26 mg/dL (7-18) H Creatinine 0.4 MG/DL (0.55-1.30) L Estimat Glomerular Filtration Rate mL/min (>60) Glucose Level 92 MG/DL (74-106) Calcium Level 8.5 MG/DL (8.5-10.1) Total Bilirubin 0.7 MG/DL (0.2-1.0) Aspartate Amino Transf (AST/SGOT) 43 U/L (15-37) H Alanine Aminotransferase (ALT/SGPT) 15 U/L (12-78) Alkaline Phosphatase 248 U/L (46-116) H Total Protein 5.8 G/DL (6.4-8.2) L Albumin 1.6 G/DL (3.4-5.0) L Globulin 4.2 g/dL Albumin/Globulin Ratio 0.4 (1.0-2.7) L Neurologic Exam Objective PHYSICAL EXAMINATION: GENERAL: He is a well-developed, ill-looking black gentleman, lying in bed, in no acute distress. HEAD: Normocephalic and atraumatic. EENT: Examination benign. NECK: No neck rigidity was observed. NEUROLOGICAL EXAMINATION: MENTAL STATUS EXAMINATION: He could not be aroused even on deep pain. Further mental status testing was impossible. SPEECH: Could not be tested. LANGUAGE: Could not be tested. CRANIAL NERVE EXAMINATION: II: He did not blink to threat. III, IV & : External ocular movements were present on oculocephalic maneuvers. The pupils were 3 mm in diameter, equal, round, regular, and non- reactive to light. V & VII: The corneal reflexes were present bilaterally. However, the right- sided reflex was diminished compared to the left. VIII: He did not respond to loud sounds and had no nystagmus. IX & X: Gag reflex was suppressed. XI: The sternocleidomastoids and trapezii functioned minimally. XII: The tongue was in the midline. MOTOR SYSTEM: The tone was increased in all four extremities with spasticity more marked on the right than on the left. Examination of muscle mass revealed generalized muscle wasting, again more marked on the right than on the left. He moved all extremities minimally on deep pain - left greater than right. SENSORY EXAMINATION: He moved all extremities minimally on deep pain. REFLEXES: Trace+ and bilaterally symmetrical at the biceps, triceps, brachioradialis. 0 at both knees and ankles. The plantar responses were extensor bilaterally. COORDINATION, STANCE & GAIT: Could not be tested. Impression/Recommendations Diagnostic Impression 1. Mr. Sagar Narvaez is a 72-year-old, [place] gentleman, of unknown handedness, who does have a past history of cerebrovascular disease with a prior stroke, pulmonary tuberculosis, chronic respiratory failure for which he has tracheostomy, and dysphagia for which he has a gastrostomy; who lives in senior living where he was noted to have an alteration in his mental state and multiple seizures. 2. He was brought in by the paramedics and has since been hospitalized. He was given a few doses of Ativan and was also given Versed in the ambulance. 3. He has his eyes open but is unresponsive. He only responds to deep painful stimuli with minimal non-purposeful withdrawal - left better than right. He continues to be seizure free. He continues to be acutely ill. There has been no significant change in his neurologic condition. He was transferred out of the ICU today. 4. On neurological examination, at this time, he cannot be aroused even on deep pain. His corneal reflex is diminished on the right side compared to the left. He moves his extremities on deep pain - left > right. His deep tendon reflexes are globally diminished and his plantar responses are extensor bilaterally. 5. Laboratory data reveal a leukocytosis and findings consistent with a UTI. 6. 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 His recent breakthrough seizures were most probably due to his acute UTI. Recommendations 1. Continue present management. 2. Continue Keppra 1000 mg q 12 hours. 3. Aggressive treatment of UTI. 4. Observe. Mercedes Coelho M.D., M.MERECDES ANTHONY May 31, 2018 14:22
[2018-05-31] MEDS ORDERED: NS 275ml ONE (15:09)
--- NOTE | 2018-05-31 17:59 | Pulmonolgy Critical Care Note ---
Critical Care - Asmt/Plan Assessment/Plan: Pulmonary CCM FU Note 72-year-old male with multiple medical problems including stroke and respiratory failure, presents with active seizures. The patient with history of tracheostomy and respiratory failure. The patient with recent hospitalization at [facility] where he was diagnosed with pulmonary tuberculosis and recent hospitalization at [place] for prolonged respiratory failure. The patient was unable to wean off the respirator and was transferred to subacute. Patient is G-tube/trach/vent dependent. Patient was noted to be actively seizing and controlled in the ER but remains less responsive. The patient was brought in for evaluation for ongoing management. I was called to assist with pulmonary status and further evaluation recommendations. The patient chart was reviewed. The care discussed with the primary MD. The patient currently comfortable on the ventilator care and chart discussed PMH Aspiration pneumonia Fungal UTI Respiratory failure with hypoxemia Dysphagia, status post PEG Malfunctioning G-tube ,status post replacement Hypoxemia Cerebrovascular disease with dementia Chronic diastolic congestive heart failure Electrolyte abnormalities: hypokalemia ,hypomagnesemia ,hyponatremia Microcytic anemia, suspecting blood loss Abnormal LFT Severe protein calorie malnutrition Seizure disorder BPH MEDS reviewed and reconciled SOCIAL HISTORY snf patient; disabled ROS unable PHYSICAL Sp02 EP Interpretation: reviewed, normal General Appearance: chronically ill appearing Head: normocephalic, atraumatic Eyes: bilateral eye normal inspection ENT: dry Neck: trach, carotid 2+ Respiratory: decreased breath sounds, scattered rhonchi bilaterally; no wheeze Cardiovascular : regular rate, rhythm, no murmur without MRG Gastrointestinal: non tender, soft, non-distended, no guarding, no rebound; GT Musculoskeletal: no CCE poorly responsive skin noted Labs Test 05/27/18 03:46 05/27/18 04:00 05/27/18 11:25 Arterial Blood pH 7.338 (7.350-7.450) Arterial Blood Partial Pressure CO2 57.0 mmHg (35.0-45.0) Arterial Blood Partial Pressure O2 101.7 mmHg (75.0-100.0) Arterial Blood HCO3 29.9 mmol/L (22.0-26.0) Arterial Blood Oxygen Saturation 97.0 % (95-100) Arterial Blood Base Excess 3.1 (-2-2) Derek Test Positive White Blood Count 12.1 K/UL (4.8-10.8) Red Blood Count 4.46 M/UL (4.70-6.10) Hemoglobin 11.0 G/DL (14.2-18.0) Hematocrit 35.0 % (42.0-52.0) Mean Corpuscular Volume 78 FL (80-99) Mean Corpuscular Hemoglobin 24.6 PG (27.0-31.0) Mean Corpuscular Hemoglobin Concent 31.4 G/DL (32.0-36.0) Red Cell Distribution Width 16.8 % (11.6-14.8) Platelet Count 337 K/UL (150-450) Mean Platelet Volume 5.1 FL (6.5-10.1) Neutrophils (%) (Auto) % (45.0-75.0) Lymphocytes (%) (Auto) % (20.0-45.0) Monocytes (%) (Auto) % (1.0-10.0) Eosinophils (%) (Auto) % (0.0-3.0) Basophils (%) (Auto) % (0.0-2.0) Urine Color Yellow Urine Appearance Slightly cloudy Urine pH 6.5 (4.5-8.0) Urine Specific [place] 1.015 (1.005-1.035) Urine Protein 3+ (NEGATIVE) Urine Glucose (UA) Negative (NEGATIVE) Urine Ketones Negative (NEGATIVE) Urine Blood 3+ (NEGATIVE) Urine Nitrite Negative (NEGATIVE) Urine Bilirubin Negative (NEGATIVE) Urine Urobilinogen 1 MG/DL (0.0-1.0) Urine Leukocyte Esterase 3+ (NEGATIVE) Urine RBC 10-15 /HPF (0 - 0) Urine WBC 40-60 /HPF (0 - 0) Urine Squamous Epithelial Cells Few /LPF (NONE/OCC) Urine Bacteria Moderate /HPF (NONE) Urine Coarse Granular Casts 0-2 /LPF (NONE) Urine Yeast Few /HPF (NONE) Sodium Level 139 MMOL/L (136-145) Potassium Level 5.2 MMOL/L (3.5-5.1) Chloride Level 103 MMOL/L (98-107) Carbon Dioxide Level 29 MMOL/L (21-32) Anion Gap 8 mmol/L (5-15) Blood Urea Nitrogen 25 mg/dL (7-18) Creatinine 0.7 MG/DL (0.55-1.30) Estimat Glomerular Filtration Rate mL/min (>60) Glucose Level 102 MG/DL (74-106) Lactic Acid Level 2.40 mmol/L (0.4-2.0) 2.20 mmol/L (0.66-2.22) Calcium Level 9.4 MG/DL (8.5-10.1) Phosphorus Level 4.9 MG/DL (2.5-4.9) Magnesium Level 1.8 MG/DL (1.8-2.4) Total Bilirubin 0.6 MG/DL (0.2-1.0) Aspartate Amino Transf (AST/SGOT) 48 U/L (15-37) Alanine Aminotransferase (ALT/SGPT) 18 U/L (12-78) Alkaline Phosphatase 444 U/L (46-116) Total Creatine Kinase 36 U/L (26-308) Creatine Kinase MB 0.6 NG/ML (0.0-3.6) Creatine Kinase MB Relative Index 1.6 Troponin I 0.014 ng/mL (0.000-0.056) Pro-B-Type Natriuretic Peptide 614 pg/mL (0-125) Total Protein 7.9 G/DL (6.4-8.2) Albumin 2.1 G/DL (3.4-5.0) Globulin 5.8 g/dL Albumin/Globulin Ratio 0.4 (1.0-2.7) IMPRESSION respiratory failure seizure possible sepsis chronic encephalopathy protein calorie malnutrition trach leukocytosis pulmonary TB debility hypoxemia htn PLAN ID reviewed neuro noted care noted IV antibiotics respiratory care as is aspiration precautions supportive care and monitor suction PRN follow clinically oxygen therapy vent management prognosis guarded acute and requires continued ICU care Critical Care - Objective Last 24 Hour Vital Signs Date Time Temp Pulse Resp B/P (MAP) Pulse Ox O2 Delivery O2 Flow Rate FiO2 05/31/18 16:43 60 16 30 05/31/18 16:01 30 05/31/18 16:01 98.1 67 18 139/70 (93) 100 05/31/18 16:00 Mechanical Ventilator 05/31/18 16:00 64 05/31/18 14:33 59 12 100 Mechanical Ventilator 30 05/31/18 14:30 58 15 30 05/31/18 14:30 58 15 100 Mechanical Ventilator 30 05/31/18 13:09 70 05/31/18 12:36 61 23 30 05/31/18 12:00 30 05/31/18 12:00 Mechanical Ventilator 05/31/18 12:00 98.8 70 18 129/63 (85) 100 05/31/18 12:00 66 05/31/18 11:00 62 19 121/59 (79) 100 05/31/18 10:38 56 22 98 Mechanical Ventilator 30 05/31/18 10:37 55 17 30 05/31/18 10:32 56 14 98 Mechanical Ventilator 30 05/31/18 10:00 59 19 135/59 (84) 100 05/31/18 09:10 67 122/61 05/31/18 09:09 67 122/61 05/31/18 09:00 60 19 122/61 (81) 100 05/31/18 08:45 70 18 30 05/31/18 08:00 30 05/31/18 08:00 69 19 134/63 (86) 100 05/31/18 08:00 74 05/31/18 08:00 Mechanical Ventilator 05/31/18 07:00 98.8 70 18 160/74 (102) 100 05/31/18 07:00 85 22 100 Mechanical Ventilator 30 05/31/18 06:57 61 16 30 05/31/18 06:54 59 16 100 Mechanical Ventilator 30 05/31/18 06:00 63 17 153/69 (97) 100 05/31/18 05:22 63 14 30 05/31/18 05:00 71 21 152/72 (98) 100 05/31/18 04:00 30 05/31/18 04:00 98.5 65 19 142/64 (90) 100 05/31/18 04:00 Mechanical Ventilator 05/31/18 04:00 65 05/31/18 03:05 64 12 100 Mechanical Ventilator 30 05/31/18 03:00 61 16 154/71 (98) 100 05/31/18 02:58 59 12 100 Mechanical Ventilator 30 05/31/18 02:58 58 12 30 05/31/18 02:00 70 19 140/63 (88) 100 05/31/18 02:00 58 17 140/63 (88) 100 05/31/18 01:00 58 19 141/60 (87) 100 05/31/18 00:47 59 19 30 05/31/18 00:00 Mechanical Ventilator 05/31/18 00:00 98.8 60 19 139/62 (87) 100 05/30/18 23:04 63 13 100 Mechanical Ventilator 30 05/30/18 23:00 58 12 136/76 (96) 100 05/30/18 22:56 58 14 100 Mechanical Ventilator 30 05/30/18 22:56 58 12 30 05/30/18 22:00 57 18 138/79 (98) 100 05/30/18 21:24 60 129/62 05/30/18 21:12 61 18 30 05/30/18 21:00 62 19 129/62 (84) 100 05/30/18 20:00 66 05/30/18 20:00 Mechanical Ventilator 05/30/18 20:00 30 05/30/18 20:00 98.2 66 27 150/61 (90) 100 05/30/18 19:00 65 23 141/65 (90) 100 05/30/18 18:54 65 12 100 Mechanical Ventilator 30 05/30/18 18:44 62 20 30 05/30/18 18:44 62 20 100 Mechanical Ventilator 30 05/30/18 18:00 65 20 139/59 (85) 100 Critical Care - Subjective ROS Limited/Unobtainable: Yes FI02: 30 Vent Support Breath Rate: 12 Vent Support Mode: AC Vent Tidal Volume: 500 Sputum Amount: Scant PEEP: 5.0 PIP: 23 Tube Feeding Amount: 50 I&O: Intake and Output 05/30/18 05/31/18 19:00 07:00 Intake Total 850 ml 1000 ml Output Total 540 ml 490 ml Balance 310 ml 510 ml Intake Free Water 250 ml 100 ml IV Total 200 ml Tube Feeding 600 ml 600 ml Other 100 ml Output Urine Total 540 ml 490 ml Jones Rasmussen MD May 31, 2018 17:59
[2018-05-31] MEDS: Tamsulosin 0.4mg cap ORAL SCH (20:26)
[2018-06-01] VITALS: BP 128/70
[2018-06-01] MEDS: Albuterol/Ipratropium 3ml neb HHN SCH ×6 (02:56→23:36)
[2018-06-01 04:00] VITALS: BP 122/75
[2018-06-01 05:13] LABS: BASOPHILS % (AUTO) 0.5 % (0.0-2.0); HEMATOCRIT 25.5 % (42.0-52.0); HEMOGLOBIN 8.2 G/DL (14.2-18.0); LYMPHOCYTES % (AUTO) 17.6 % (20.0-45.0); MEAN CORPUSCULAR VOLUME 78 FL (80-99); MONOCYTES % (AUTO) 12.9 % (1.0-10.0); PLATELET COUNT 144 K/UL (150-450); RED BLOOD COUNT 3.29 M/UL (4.70-6.10); RED CELL DISTRIBUTION WIDTH 16.2 % (11.6-14.8); WHITE BLOOD COUNT 3.8 K/UL (4.8-10.8)
[2018-06-01 05:31] LABS: ALANINE AMINOTRANSFERASE 8 U/L (12-78); ALBUMIN 1.6 G/DL (3.4-5.0); ALBUMIN/GLOBULIN RATIO 0.4 (1.0-2.7); ALKALINE PHOSPHATASE 251 U/L (46-116); ANION GAP 6 mmol/L (5-15); ASPARTATE AMINO TRANSFERASE 34 U/L (15-37); BILIRUBIN,TOTAL 0.4 MG/DL (0.2-1.0); BLOOD UREA NITROGEN 30 mg/dL (7-18); CARBON DIOXIDE 29 MMOL/L (21-32); CHLORIDE 111 MMOL/L (98-107); CREATININE 0.6 MG/DL (0.55-1.30); POTASSIUM 3.9 MMOL/L (3.5-5.1); SODIUM 145 MMOL/L (136-145)
[2018-06-01 08:00] VITALS: BP 145/67
--- NOTE | 2018-06-01 08:16 | General Progress Note ---
Assessment/Plan Assessment/Plan Assessment - N/V, ? transient, KUB (-) - suspected early cirrhosis based on imaging - hepatitis A/B/C negative - TRISTAN negative but F-Actin (+) - ? significance - Liver lesion, r/o HCC -->AFP normal - Elevated LFT - mainly alk phos - hypercholesterolemia - on statin - Anemia - Resp failure - pulm TB - on INH based Rx - s/p PEG and Trach Recommendations - Statin on hold - PPI - not good candidate for liver biopsy or for steroids - watch LFT on INH - will consider MRI - would follow conservatively - continue TF - monitor residuals - Poor Px -increase GTF to 55 Subjective ROS Limited/Unobtainable: No Allergies: Coded Allergies: No Known Allergies (Unverified , 01/27/17) Objective Last 24 Hour Vital Signs Date Time Temp Pulse Resp B/P (MAP) Pulse Ox O2 Delivery O2 Flow Rate FiO2 06/01/18 07:38 65 20 100 Mechanical Ventilator 30 06/01/18 07:31 67 21 99 Mechanical Ventilator 30 06/01/18 06:45 67 21 30 06/01/18 05:14 67 12 30 06/01/18 04:00 Mechanical Ventilator 06/01/18 04:00 98.1 79 18 122/75 (91) 100 06/01/18 04:00 30 06/01/18 04:00 65 06/01/18 03:06 61 13 100 Mechanical Ventilator 30 06/01/18 03:02 60 12 100 Mechanical Ventilator 30 06/01/18 03:02 60 12 30 06/01/18 00:46 69 13 30 06/01/18 00:00 60 06/01/18 00:00 98.2 70 16 128/70 (89) 100 06/01/18 00:00 Mechanical Ventilator 06/01/18 00:00 Mechanical Ventilator 06/01/18 00:00 30 05/31/18 23:25 71 12 100 Mechanical Ventilator 30 05/31/18 23:16 60 13 30 05/31/18 23:14 60 12 100 Mechanical Ventilator 30 05/31/18 21:24 59 12 30 05/31/18 20:36 70 139/68 05/31/18 20:04 57 12 100 Mechanical Ventilator 30 05/31/18 20:03 58 12 100 Mechanical Ventilator 30 05/31/18 20:00 Mechanical Ventilator 05/31/18 20:00 98.2 70 16 128/70 (89) 100 05/31/18 20:00 57 05/31/18 20:00 30 05/31/18 18:35 58 12 30 05/31/18 16:43 60 16 30 05/31/18 16:01 30 05/31/18 16:01 98.1 67 18 139/70 (93) 100 05/31/18 16:00 Mechanical Ventilator 05/31/18 16:00 64 05/31/18 14:33 59 12 100 Mechanical Ventilator 30 05/31/18 14:30 58 15 30 05/31/18 14:30 58 15 100 Mechanical Ventilator 30 05/31/18 13:09 70 05/31/18 12:36 61 23 30 05/31/18 12:00 30 05/31/18 12:00 Mechanical Ventilator 05/31/18 12:00 98.8 70 18 129/63 (85) 100 05/31/18 12:00 66 05/31/18 11:00 62 19 121/59 (79) 100 05/31/18 10:38 56 22 98 Mechanical Ventilator 30 05/31/18 10:37 55 17 30 05/31/18 10:32 56 14 98 Mechanical Ventilator 30 05/31/18 10:00 59 19 135/59 (84) 100 05/31/18 09:10 67 122/61 05/31/18 09:09 67 122/61 05/31/18 09:00 60 19 122/61 (81) 100 05/31/18 08:45 70 18 30 Intake and Output 05/31/18 06/01/18 19:00 07:00 Intake Total 800 ml 1400 ml Output Total 395 ml 550 ml Balance 405 ml 850 ml Intake Free Water 100 ml 300 ml IV Total 150 ml 500 ml Tube Feeding 550 ml 600 ml Blood Product 0 ml 0 ml Output Urine Total 395 ml 550 ml # Bowel Movements 1 1 Laboratory Tests 05/31/18 13:00: White Blood Count 2.9#L, Red Blood Count 3.32L, Hemoglobin 8.2L, Hematocrit 26.1L, Mean Corpuscular Volume 79L, Mean Corpuscular Hemoglobin 24.8L, Mean Corpuscular Hemoglobin Concent 31.6L, Red Cell Distribution Width 16.8H, Platelet Count 128L, Mean Platelet Volume 5.5L, Neutrophils (%) (Auto) , Lymphocytes (%) (Auto) , Monocytes (%) (Auto) , Eosinophils (%) (Auto) , Basophils (%) (Auto) , Differential Total Cells Counted 100, Neutrophils % ( Manual) 74, Lymphocytes % (Manual) 16L, Monocytes % (Manual) 9, Eosinophils % ( Manual) 1, Basophils % (Manual) 0, Band Neutrophils 0, Platelet Estimate DecreasedL, Platelet Morphology Normal, Hypochromasia 1+, Anisocytosis 1+, Microcytosis 1+, Sodium Level 147H, Potassium Level 4.4, Chloride Level 112H, Carbon Dioxide Level 24, Anion Gap 11, Blood Urea Nitrogen 26H, Creatinine 0.4L , Estimat Glomerular Filtration Rate , Glucose Level 92, Calcium Level 8.5, Total Bilirubin 0.7, Aspartate Amino Transf (AST/SGOT) 43H, Alanine Aminotransferase (ALT/SGPT) 15, Alkaline Phosphatase 248H, Total Protein 5.8L, Albumin 1.6L, Globulin 4.2, Albumin/Globulin Ratio 0.4L 06/01/18 04:20: White Blood Count 3.8L, Red Blood Count 3.29L, Hemoglobin 8.2L, Hematocrit 25.5L , Mean Corpuscular Volume 78L, Mean Corpuscular Hemoglobin 25.1L, Mean Corpuscular Hemoglobin Concent 32.3, Red Cell Distribution Width 16.2H, Platelet Count 144L, Mean Platelet Volume 6.4L, Neutrophils (%) (Auto) 67.0, Lymphocytes (%) (Auto) 17.6L, Monocytes (%) (Auto) 12.9H, Eosinophils (%) (Auto ) 2.0, Basophils (%) (Auto) 0.5, Sodium Level 145, Potassium Level 3.9, Chloride Level 111H, Carbon Dioxide Level 29, Anion Gap 6, Blood Urea Nitrogen 30H, Creatinine 0.6, Estimat Glomerular Filtration Rate , Glucose Level 104, Calcium Level 9.0, Total Bilirubin 0.4, Aspartate Amino Transf (AST/SGOT) 34, Alanine Aminotransferase (ALT/SGPT) 8L, Alkaline Phosphatase 251H, Total Protein 6.1L, Albumin 1.6L, Globulin 4.5, Albumin/Globulin Ratio 0.4L Height (Feet): 5 Height (Inches): 7.00 Weight (Pounds): 131 General Appearance: no apparent distress EENT: normal ENT inspection Neck: supple Cardiovascular: normal rate Respiratory/Chest: decreased breath sounds Abdomen: normal bowel sounds, non tender, soft Extremities: non-tender Roberto Carlos Hung MD Jun 01, 2018 08:16
[2018-06-01] MEDS: levETIRAcetam 1,000mg/NS100ml 100 ML IVPB SCH ×2 (08:49→20:52)
[2018-06-01] MEDS: Minocycline HCl 50mg cap ORAL SCH ×2 (08:50→20:53)
[2018-06-01] MEDS: Multivitamin w/Minerals tab ORAL SCH (08:50)
[2018-06-01] MEDS: Doxazosin 1mg Tab ORAL SCH (08:50)
[2018-06-01] MEDS: Aspirin Baby 81mg ORAL SCH (08:51)
[2018-06-01] MEDS: Isoniazid 300mg tab ORAL SCH (08:52)
[2018-06-01] MEDS: Pyridoxine 50mg tab ORAL SCH (08:53)
[2018-06-01] MEDS: Ascorbic Acid 500mg tab ORAL SCH (08:53)
[2018-06-01] MEDS: Metoprolol Tartrate 50mg tab ORAL SCH ×2 (09:05→20:54)
--- NOTE | 2018-06-01 10:24 | Infectious Diseases Prog Note ---
Assessment/Plan Assessment/Plan antibiotics : isoniazid, rifampin, ethambutol, pyrazinamide, pyridoxine, meropenem, minocycline A 1. acenitobacter pneumonia 2. pulmonary tuberculosis 3. leucocytosis 4. respiratory failure 5. seizures P 1. continue minocycline 4 more days 2. d/c meropenem 3. continue isoniazid, rifampin, ethambutol, pyrazinamide, pyridoxine 4. will follow up cultures Subjective ROS Limited/Unobtainable: Yes Allergies: Coded Allergies: No Known Allergies (Unverified , 01/27/17) Objective Vital Signs Last 24 Hour Vital Signs Date Time Temp Pulse Resp B/P (MAP) Pulse Ox O2 Delivery O2 Flow Rate FiO2 06/01/18 09:13 70 24 Mechanical Ventilator 30 06/01/18 09:12 70 24 30 06/01/18 09:05 70 145/67 06/01/18 08:51 70 145/67 06/01/18 08:00 30 06/01/18 08:00 97.9 70 23 145/67 (93) 100 06/01/18 07:38 65 20 100 Mechanical Ventilator 30 06/01/18 07:31 67 21 99 Mechanical Ventilator 30 06/01/18 06:45 67 21 30 06/01/18 05:14 67 12 30 06/01/18 04:00 Mechanical Ventilator 06/01/18 04:00 98.1 79 18 122/75 (91) 100 06/01/18 04:00 30 06/01/18 04:00 65 06/01/18 03:06 61 13 100 Mechanical Ventilator 30 06/01/18 03:02 60 12 100 Mechanical Ventilator 30 06/01/18 03:02 60 12 30 06/01/18 00:46 69 13 30 06/01/18 00:00 60 06/01/18 00:00 98.2 70 16 128/70 (89) 100 06/01/18 00:00 Mechanical Ventilator 06/01/18 00:00 Mechanical Ventilator 06/01/18 00:00 30 05/31/18 23:25 71 12 100 Mechanical Ventilator 30 05/31/18 23:16 60 13 30 05/31/18 23:14 60 12 100 Mechanical Ventilator 30 05/31/18 21:24 59 12 30 05/31/18 20:36 70 139/68 05/31/18 20:04 57 12 100 Mechanical Ventilator 30 05/31/18 20:03 58 12 100 Mechanical Ventilator 30 05/31/18 20:00 Mechanical Ventilator 05/31/18 20:00 98.2 70 16 128/70 (89) 100 05/31/18 20:00 57 05/31/18 20:00 30 05/31/18 18:35 58 12 30 05/31/18 16:43 60 16 30 05/31/18 16:01 30 05/31/18 16:01 98.1 67 18 139/70 (93) 100 05/31/18 16:00 Mechanical Ventilator 05/31/18 16:00 64 05/31/18 14:33 59 12 100 Mechanical Ventilator 30 05/31/18 14:30 58 15 30 05/31/18 14:30 58 15 100 Mechanical Ventilator 30 05/31/18 13:09 70 05/31/18 12:36 61 23 30 05/31/18 12:00 30 05/31/18 12:00 Mechanical Ventilator 05/31/18 12:00 98.8 70 18 129/63 (85) 100 05/31/18 12:00 66 05/31/18 11:00 62 19 121/59 (79) 100 05/31/18 10:38 56 22 98 Mechanical Ventilator 30 05/31/18 10:37 55 17 30 05/31/18 10:32 56 14 98 Mechanical Ventilator 30 Height (Feet): 5 Height (Inches): 7.00 Weight (Pounds): 131 HEENT: status post trach Respiratory/Chest: lungs clear Cardiovascular: normal rate, regular rhythm, no gallop/murmur Abdomen: soft, non tender, other - GT Extremities: no edema Laboratory Tests Test 05/31/18 13:00 06/01/18 04:20 White Blood Count 2.9 K/UL (4.8-10.8) #L 3.8 K/UL (4.8-10.8) L Red Blood Count 3.32 M/UL (4.70-6.10) L 3.29 M/UL (4.70-6.10) L Hemoglobin 8.2 G/DL (14.2-18.0) L 8.2 G/DL (14.2-18.0) L Hematocrit 26.1 % (42.0-52.0) L 25.5 % (42.0-52.0) L Mean Corpuscular Volume 79 FL (80-99) L 78 FL (80-99) L Mean Corpuscular Hemoglobin 24.8 PG (27.0-31.0) L 25.1 PG (27.0-31.0) L Mean Corpuscular Hemoglobin Concent 31.6 G/DL (32.0-36.0) L 32.3 G/DL (32.0-36.0) Red Cell Distribution Width 16.8 % (11.6-14.8) H 16.2 % (11.6-14.8) H Platelet Count 128 K/UL (150-450) L 144 K/UL (150-450) L Mean Platelet Volume 5.5 FL (6.5-10.1) L 6.4 FL (6.5-10.1) L Neutrophils (%) (Auto) % (45.0-75.0) 67.0 % (45.0-75.0) Lymphocytes (%) (Auto) % (20.0-45.0) 17.6 % (20.0-45.0) L Monocytes (%) (Auto) % (1.0-10.0) 12.9 % (1.0-10.0) H Eosinophils (%) (Auto) % (0.0-3.0) 2.0 % (0.0-3.0) Basophils (%) (Auto) % (0.0-2.0) 0.5 % (0.0-2.0) Differential Total Cells Counted 100 Neutrophils % (Manual) 74 % (45-75) Lymphocytes % (Manual) 16 % (20-45) L Monocytes % (Manual) 9 % (1-10) Eosinophils % (Manual) 1 % (0-3) Basophils % (Manual) 0 % (0-2) Band Neutrophils 0 % (0-8) Platelet Estimate Decreased L Platelet Morphology Normal Hypochromasia 1+ Anisocytosis 1+ Microcytosis 1+ Sodium Level 147 MMOL/L (136-145) H 145 MMOL/L (136-145) Potassium Level 4.4 MMOL/L (3.5-5.1) 3.9 MMOL/L (3.5-5.1) Chloride Level 112 MMOL/L (98-107) H 111 MMOL/L (98-107) H Carbon Dioxide Level 24 MMOL/L (21-32) 29 MMOL/L (21-32) Anion Gap 11 mmol/L (5-15) 6 mmol/L (5-15) Blood Urea Nitrogen 26 mg/dL (7-18) H 30 mg/dL (7-18) H Creatinine 0.4 MG/DL (0.55-1.30) L 0.6 MG/DL (0.55-1.30) Estimat Glomerular Filtration Rate mL/min (>60) mL/min (>60) Glucose Level 92 MG/DL (74-106) 104 MG/DL (74-106) Calcium Level 8.5 MG/DL (8.5-10.1) 9.0 MG/DL (8.5-10.1) Total Bilirubin 0.7 MG/DL (0.2-1.0) 0.4 MG/DL (0.2-1.0) Aspartate Amino Transf (AST/SGOT) 43 U/L (15-37) H 34 U/L (15-37) Alanine Aminotransferase (ALT/SGPT) 15 U/L (12-78) 8 U/L (12-78) L Alkaline Phosphatase 248 U/L (46-116) H 251 U/L (46-116) H Total Protein 5.8 G/DL (6.4-8.2) L 6.1 G/DL (6.4-8.2) L Albumin 1.6 G/DL (3.4-5.0) L 1.6 G/DL (3.4-5.0) L Globulin 4.2 g/dL 4.5 g/dL Albumin/Globulin Ratio 0.4 (1.0-2.7) L 0.4 (1.0-2.7) L Current Medications Medications (Trade) Dose Ordered Sig/Iram Route PRN Reason Start Time Stop Time Status Last Admin Dose Admin Acetaminophen (Tylenol) 650 mg Q4H PRN ORAL Fever/Headache/Mild Pain 05/31/18 13:15 06/26/18 13:14 Amlodipine Besylate (Norvasc) 10 mg DAILY ORAL 06/01/18 09:00 06/26/18 08:59 06/01/18 08:51 Artificial Tears (Akwa-Tears) 2 drop FIVE TIMES A DAY PRN BOTH EYES Dry Eyes 05/31/18 13:00 06/26/18 06:14 Ascorbic Acid (Vitamin C) 250 mg DAILY ORAL 06/01/18 09:00 06/26/18 08:59 06/01/18 08:53 Aspirin (ASA) 81 mg DAILY ORAL 06/01/18 09:00 06/26/18 08:59 06/01/18 08:51 Atorvastatin Calcium (Lipitor) 10 mg BEDTIME ORAL 05/31/18 21:00 06/26/18 20:59 05/31/18 20:26 Bisacodyl (Dulcolax) 10 mg PRN PRN RECTAL DAILY 05/31/18 13:15 06/30/18 13:14 Doxazosin Mesylate (Cardura) 1 mg DAILY ORAL 06/01/18 09:00 06/26/18 08:59 06/01/18 08:50 Ethambutol HCl (Myambutol) 800 mg DAILY ORAL 06/01/18 09:00 06/26/18 12:29 06/01/18 08:52 Famotidine (Pepcid) 20 mg DAILY ORAL 06/01/18 09:00 06/26/18 08:59 06/01/18 08:50 Isoniazid (Inh) 300 mg DAILY ORAL 06/01/18 09:00 06/26/18 08:59 06/01/18 08:52 Levetiracetam 100 ml @ 400 mls/hr Q12HR IVPB 05/31/18 21:00 06/26/18 09:29 06/01/18 08:49 Lorazepam (Ativan 2mg/ml 1ml) 2 mg Q1H PRN IV For Seizures 05/31/18 12:30 06/03/18 09:29 Meropenem 500 mg/ Sodium Chloride 50 ml @ 100 mls/hr Q8HR IVPB 05/31/18 14:00 06/05/18 13:59 06/01/18 05:02 Metoprolol Tartrate (Lopressor) 50 mg Q12HR ORAL 05/31/18 21:00 06/26/18 08:59 06/01/18 09:05 Midodrine (Pro-Amatine) 2.5 mg THREE TIMES A DAY ORAL 05/31/18 13:00 06/26/18 08:59 06/01/18 08:52 Minocycline HCl (Minocin) 100 mg Q12HR ORAL 05/31/18 21:00 06/03/18 12:29 06/01/18 08:50 Multivitamins Therapeutic (Therapeutic Multivitamin) 1 ea DAILY ORAL 06/01/18 09:00 06/26/18 08:59 06/01/18 08:50 Pyrazinamide (Pza) 1,000 mg DAILY ORAL 06/01/18 09:00 06/26/18 08:59 06/01/18 08:52 Pyridoxine HCl (Vitamin B6) 50 mg DAILY ORAL 06/01/18 09:00 06/26/18 08:59 06/01/18 08:53 Rifampin (Rifadin) 600 mg DAILY ORAL 06/01/18 09:00 06/26/18 08:59 06/01/18 08:51 Sennosides (Senokot) 1 tab Q12H PRN ORAL Constipation 05/31/18 13:15 06/30/18 13:14 Sennosides (Senokot) 2 tab Q12H PRN ORAL Constipation 05/31/18 13:15 06/30/18 13:14 Sodium Phosphate (Fleet's Sodium Phosl Enema) 133 ml PRN PRN RECTAL Q 2 DAYS 05/31/18 13:15 06/30/18 13:14 Tamsulosin HCl (Flomax) 0.4 mg BEDTIME ORAL 05/31/18 21:00 06/26/18 20:59 05/31/18 20:26 Sergio Urban MD Jun 01, 2018 10:24
[2018-06-01] MEDS ORDERED: NS 275ml ONE (10:49)
--- NOTE | 2018-06-01 11:50 | General Progress Note ---
Assessment/Plan Problem List: (1) Toxic metabolic encephalopathy ICD Codes: G92 - Toxic encephalopathy SNOMED: 542425928 (2) HTN (hypertension) ICD Codes: I10 - Essential (primary) hypertension SNOMED: 21511423 (3) Aspiration pneumonia ICD Codes: J69.0 - Pneumonitis due to inhalation of food and vomit SNOMED: 916404013 (4) Sepsis ICD Codes: A41.9 - Sepsis, unspecified organism SNOMED: 89382308 (5) Status epilepticus ICD Codes: G40.901 - Epilepsy, unspecified, not intractable, with status epilepticus SNOMED: 866270675 (6) UTI (urinary tract infection), bacterial ICD Codes: N39.0 - Urinary tract infection, site not specified; A49.9 - Bacterial infection, unspecified SNOMED: 545415377 Assessment/Plan ivf tube feeds monitor residuals sz rx iv abx follow up cultures monitor cxr vent support resp rx Subjective ROS Limited/Unobtainable: Yes Constitutional: Reports: malaise, weakness HEENT: Reports: no symptoms Cardiovascular: Reports: no symptoms Respiratory: Reports: shortness of breath Gastrointestinal/Abdominal: Reports: difficulty swallowing Genitourinary: Reports: no symptoms Neurologic/Psychiatric: Reports: pre-existing deficit, seizure Endocrine: Reports: no symptoms Hematologic/Lymphatic: Reports: anemia Allergies: Coded Allergies: No Known Allergies (Unverified , 01/27/17) All Systems: reviewed and negative except above Subjective cont current rx gt feeds sz rx abx per ID vent resp care monitor h/h transfuse as needed Objective Last 24 Hour Vital Signs Date Time Temp Pulse Resp B/P (MAP) Pulse Ox O2 Delivery O2 Flow Rate FiO2 06/01/18 11:16 63 19 100 Mechanical Ventilator 30 06/01/18 11:09 51 21 100 Mechanical Ventilator 30 06/01/18 10:32 61 20 30 06/01/18 09:13 70 24 Mechanical Ventilator 30 06/01/18 09:12 70 24 30 06/01/18 09:05 70 145/67 06/01/18 08:51 70 145/67 06/01/18 08:00 30 06/01/18 08:00 97.9 70 23 145/67 (93) 100 06/01/18 08:00 68 06/01/18 08:00 Mechanical Ventilator 06/01/18 07:38 65 20 100 Mechanical Ventilator 30 06/01/18 07:31 67 21 99 Mechanical Ventilator 30 06/01/18 06:45 67 21 30 06/01/18 05:14 67 12 30 06/01/18 04:00 Mechanical Ventilator 06/01/18 04:00 98.1 79 18 122/75 (91) 100 06/01/18 04:00 30 06/01/18 04:00 65 06/01/18 03:06 61 13 100 Mechanical Ventilator 30 06/01/18 03:02 60 12 100 Mechanical Ventilator 30 06/01/18 03:02 60 12 30 06/01/18 00:46 69 13 30 06/01/18 00:00 60 06/01/18 00:00 98.2 70 16 128/70 (89) 100 06/01/18 00:00 Mechanical Ventilator 06/01/18 00:00 Mechanical Ventilator 06/01/18 00:00 30 05/31/18 23:25 71 12 100 Mechanical Ventilator 30 05/31/18 23:16 60 13 30 05/31/18 23:14 60 12 100 Mechanical Ventilator 30 05/31/18 21:24 59 12 30 05/31/18 20:36 70 139/68 05/31/18 20:04 57 12 100 Mechanical Ventilator 30 05/31/18 20:03 58 12 100 Mechanical Ventilator 30 05/31/18 20:00 Mechanical Ventilator 05/31/18 20:00 98.2 70 16 128/70 (89) 100 05/31/18 20:00 57 05/31/18 20:00 30 05/31/18 18:35 58 12 30 05/31/18 16:43 60 16 30 05/31/18 16:01 30 05/31/18 16:01 98.1 67 18 139/70 (93) 100 05/31/18 16:00 Mechanical Ventilator 05/31/18 16:00 64 05/31/18 14:33 59 12 100 Mechanical Ventilator 30 05/31/18 14:30 58 15 30 05/31/18 14:30 58 15 100 Mechanical Ventilator 30 05/31/18 13:09 70 05/31/18 12:36 61 23 30 05/31/18 12:00 30 05/31/18 12:00 Mechanical Ventilator 05/31/18 12:00 98.8 70 18 129/63 (85) 100 05/31/18 12:00 66 Intake and Output 05/31/18 06/01/18 19:00 07:00 Intake Total 800 ml 1400 ml Output Total 395 ml 550 ml Balance 405 ml 850 ml Intake Free Water 100 ml 300 ml IV Total 150 ml 500 ml Tube Feeding 550 ml 600 ml Blood Product 0 ml 0 ml Output Urine Total 395 ml 550 ml # Bowel Movements 1 1 Laboratory Tests 05/31/18 13:00: White Blood Count 2.9#L, Red Blood Count 3.32L, Hemoglobin 8.2L, Hematocrit 26.1L, Mean Corpuscular Volume 79L, Mean Corpuscular Hemoglobin 24.8L, Mean Corpuscular Hemoglobin Concent 31.6L, Red Cell Distribution Width 16.8H, Platelet Count 128L, Mean Platelet Volume 5.5L, Neutrophils (%) (Auto) , Lymphocytes (%) (Auto) , Monocytes (%) (Auto) , Eosinophils (%) (Auto) , Basophils (%) (Auto) , Differential Total Cells Counted 100, Neutrophils % ( Manual) 74, Lymphocytes % (Manual) 16L, Monocytes % (Manual) 9, Eosinophils % ( Manual) 1, Basophils % (Manual) 0, Band Neutrophils 0, Platelet Estimate DecreasedL, Platelet Morphology Normal, Hypochromasia 1+, Anisocytosis 1+, Microcytosis 1+, Sodium Level 147H, Potassium Level 4.4, Chloride Level 112H, Carbon Dioxide Level 24, Anion Gap 11, Blood Urea Nitrogen 26H, Creatinine 0.4L , Estimat Glomerular Filtration Rate , Glucose Level 92, Calcium Level 8.5, Total Bilirubin 0.7, Aspartate Amino Transf (AST/SGOT) 43H, Alanine Aminotransferase (ALT/SGPT) 15, Alkaline Phosphatase 248H, Total Protein 5.8L, Albumin 1.6L, Globulin 4.2, Albumin/Globulin Ratio 0.4L 06/01/18 04:20: White Blood Count 3.8L, Red Blood Count 3.29L, Hemoglobin 8.2L, Hematocrit 25.5L , Mean Corpuscular Volume 78L, Mean Corpuscular Hemoglobin 25.1L, Mean Corpuscular Hemoglobin Concent 32.3, Red Cell Distribution Width 16.2H, Platelet Count 144L, Mean Platelet Volume 6.4L, Neutrophils (%) (Auto) 67.0, Lymphocytes (%) (Auto) 17.6L, Monocytes (%) (Auto) 12.9H, Eosinophils (%) (Auto ) 2.0, Basophils (%) (Auto) 0.5, Sodium Level 145, Potassium Level 3.9, Chloride Level 111H, Carbon Dioxide Level 29, Anion Gap 6, Blood Urea Nitrogen 30H, Creatinine 0.6, Estimat Glomerular Filtration Rate , Glucose Level 104, Calcium Level 9.0, Total Bilirubin 0.4, Aspartate Amino Transf (AST/SGOT) 34, Alanine Aminotransferase (ALT/SGPT) 8L, Alkaline Phosphatase 251H, Total Protein 6.1L, Albumin 1.6L, Globulin 4.5, Albumin/Globulin Ratio 0.4L Height (Feet): 5 Height (Inches): 7.00 Weight (Pounds): 131 Objective General Appearance: WD/WN, lethargic, confused Neck: supple Cardiovascular: normal rate, regular rhythm Respiratory/Chest: rhonchi - bilaterally Abdomen: normal bowel sounds, non tender, soft, no organomegaly Edema: no edema noted Arm (L), no edema noted Arm (R), no edema noted Leg (L), no edema noted Leg (R), no edema noted Pedal (L), no edema noted Pedal (R), no edema noted Generalized Jarrod Vásquez MD Jun 01, 2018 11:50
[2018-06-01 12:00] VITALS: BP 131/61
--- NOTE | 2018-06-01 14:11 | Neurology Progress Note ---
Interim History Interim History Interim History Mr. Narvaez has his eyes open but is unresponsive. He only responds to deep painful stimuli with minimal non-purposeful withdrawal - left better than right. He continues to be seizure free. There has been no significant change in his neurologic condition. Review of Systems Neuro Review of Systems Unable to obtain. Objective Physical Exam Last Vital Signs Date Time Temp Pulse Resp B/P (MAP) Pulse Ox O2 Delivery O2 Flow Rate FiO2 06/01/18 14:00 63 22 98 Mechanical Ventilator 30 06/01/18 12:00 97.9 131/61 (84) 05/27/18 07:00 15.0 Laboratory Tests Test 06/01/18 04:20 White Blood Count 3.8 K/UL (4.8-10.8) L Red Blood Count 3.29 M/UL (4.70-6.10) L Hemoglobin 8.2 G/DL (14.2-18.0) L Hematocrit 25.5 % (42.0-52.0) L Mean Corpuscular Volume 78 FL (80-99) L Mean Corpuscular Hemoglobin 25.1 PG (27.0-31.0) L Mean Corpuscular Hemoglobin Concent 32.3 G/DL (32.0-36.0) Red Cell Distribution Width 16.2 % (11.6-14.8) H Platelet Count 144 K/UL (150-450) L Mean Platelet Volume 6.4 FL (6.5-10.1) L Neutrophils (%) (Auto) 67.0 % (45.0-75.0) Lymphocytes (%) (Auto) 17.6 % (20.0-45.0) L Monocytes (%) (Auto) 12.9 % (1.0-10.0) H Eosinophils (%) (Auto) 2.0 % (0.0-3.0) Basophils (%) (Auto) 0.5 % (0.0-2.0) Sodium Level 145 MMOL/L (136-145) Potassium Level 3.9 MMOL/L (3.5-5.1) Chloride Level 111 MMOL/L (98-107) H Carbon Dioxide Level 29 MMOL/L (21-32) Anion Gap 6 mmol/L (5-15) Blood Urea Nitrogen 30 mg/dL (7-18) H Creatinine 0.6 MG/DL (0.55-1.30) Estimat Glomerular Filtration Rate mL/min (>60) Glucose Level 104 MG/DL (74-106) Calcium Level 9.0 MG/DL (8.5-10.1) Total Bilirubin 0.4 MG/DL (0.2-1.0) Aspartate Amino Transf (AST/SGOT) 34 U/L (15-37) Alanine Aminotransferase (ALT/SGPT) 8 U/L (12-78) L Alkaline Phosphatase 251 U/L (46-116) H Total Protein 6.1 G/DL (6.4-8.2) L Albumin 1.6 G/DL (3.4-5.0) L Globulin 4.5 g/dL Albumin/Globulin Ratio 0.4 (1.0-2.7) L Neurologic Exam Objective PHYSICAL EXAMINATION: GENERAL: He is a well-developed, ill-looking black gentleman, lying in bed, in no acute distress. HEAD: Normocephalic and atraumatic. EENT: Examination benign. NECK: No neck rigidity was observed. NEUROLOGICAL EXAMINATION: MENTAL STATUS EXAMINATION: He could not be aroused even on deep pain. Further mental status testing was impossible. SPEECH: Could not be tested. LANGUAGE: Could not be tested. CRANIAL NERVE EXAMINATION: II: He did not blink to threat. III, IV & : External ocular movements were present on oculocephalic maneuvers. The pupils were 3 mm in diameter, equal, round, regular, and non- reactive to light. V & VII: The corneal reflexes were present bilaterally. However, the right- sided reflex was diminished compared to the left. VIII: He did not respond to loud sounds and had no nystagmus. IX & X: Gag reflex was suppressed. XI: The sternocleidomastoids and trapezii functioned minimally. XII: The tongue was in the midline. MOTOR SYSTEM: The tone was increased in all four extremities with spasticity more marked on the right than on the left. Examination of muscle mass revealed generalized muscle wasting, again more marked on the right than on the left. He moved all extremities minimally on deep pain - left greater than right. SENSORY EXAMINATION: He moved all extremities minimally on deep pain. REFLEXES: Trace+ and bilaterally symmetrical at the biceps, triceps, brachioradialis. 0 at both knees and ankles. The plantar responses were extensor bilaterally. COORDINATION, STANCE & GAIT: Could not be tested. Impression/Recommendations Diagnostic Impression 1. Mr. Sagar Narvaez is a 72-year-old, [place] gentleman, of unknown handedness, who does have a past history of cerebrovascular disease with a prior stroke, pulmonary tuberculosis, chronic respiratory failure for which he has tracheostomy, and dysphagia for which he has a gastrostomy; who lives in longterm where he was noted to have an alteration in his mental state and multiple seizures. 2. He was brought in by the paramedics and has since been hospitalized. He was given a few doses of Ativan and was also given Versed in the ambulance. 3. He has his eyes open but is unresponsive. He only responds to deep painful stimuli with minimal non-purposeful withdrawal - left better than right. He continues to be seizure free. There has been no significant change in his neurologic condition. 4. On neurological examination, at this time, he cannot be aroused even on deep pain. His corneal reflex is diminished on the right side compared to the left. He moves his extremities on deep pain - left > right. His deep tendon reflexes are globally diminished and his plantar responses are extensor bilaterally. 5. Laboratory data revealed a leukocytosis and findings consistent with a UTI - which have now resolved. 6. 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 His recent breakthrough seizures were most probably due to his acute UTI. Recommendations 1. Continue present management. 2. Continue Keppra 1000 mg q 12 hours. 3. Observe. Mercedes Coelho M.D., M.S.P.MERCEDES BERMUDEZ Jun 01, 2018 14:11
--- NOTE | 2018-06-01 14:31 | General Surgery Progress Note ---
General Surgery-Progress Note Subjective Additional Comments labs reviewed. tolerating feeds. abx change. no acute events. Objective Last 24 Hour Vital Signs Date Time Temp Pulse Resp B/P (MAP) Pulse Ox O2 Delivery O2 Flow Rate FiO2 06/01/18 14:07 64 20 99 Mechanical Ventilator 30 06/01/18 14:00 63 22 98 Mechanical Ventilator 30 06/01/18 12:45 65 19 30 06/01/18 12:00 97.9 66 22 131/61 (84) 100 06/01/18 12:00 30 06/01/18 12:00 66 06/01/18 12:00 Mechanical Ventilator 06/01/18 11:16 63 19 100 Mechanical Ventilator 30 06/01/18 11:09 51 21 100 Mechanical Ventilator 30 06/01/18 10:32 61 20 30 06/01/18 09:13 70 24 Mechanical Ventilator 30 06/01/18 09:12 70 24 30 06/01/18 09:05 70 145/67 06/01/18 08:51 70 145/67 06/01/18 08:00 30 06/01/18 08:00 97.9 70 23 145/67 (93) 100 06/01/18 08:00 68 06/01/18 08:00 Mechanical Ventilator 06/01/18 07:38 65 20 100 Mechanical Ventilator 30 06/01/18 07:31 67 21 99 Mechanical Ventilator 30 06/01/18 06:45 67 21 30 06/01/18 05:14 67 12 30 06/01/18 04:00 Mechanical Ventilator 06/01/18 04:00 98.1 79 18 122/75 (91) 100 06/01/18 04:00 30 06/01/18 04:00 65 06/01/18 03:06 61 13 100 Mechanical Ventilator 30 06/01/18 03:02 60 12 100 Mechanical Ventilator 30 06/01/18 03:02 60 12 30 06/01/18 00:46 69 13 30 06/01/18 00:00 60 06/01/18 00:00 98.2 70 16 128/70 (89) 100 06/01/18 00:00 Mechanical Ventilator 06/01/18 00:00 Mechanical Ventilator 06/01/18 00:00 30 05/31/18 23:25 71 12 100 Mechanical Ventilator 30 05/31/18 23:16 60 13 30 05/31/18 23:14 60 12 100 Mechanical Ventilator 30 05/31/18 21:24 59 12 30 05/31/18 20:36 70 139/68 05/31/18 20:04 57 12 100 Mechanical Ventilator 30 05/31/18 20:03 58 12 100 Mechanical Ventilator 30 05/31/18 20:00 Mechanical Ventilator 05/31/18 20:00 98.2 70 16 128/70 (89) 100 05/31/18 20:00 57 05/31/18 20:00 30 05/31/18 18:35 58 12 30 05/31/18 16:43 60 16 30 05/31/18 16:01 30 05/31/18 16:01 98.1 67 18 139/70 (93) 100 05/31/18 16:00 Mechanical Ventilator 05/31/18 16:00 64 05/31/18 14:33 59 12 100 Mechanical Ventilator 30 05/31/18 14:30 58 15 30 05/31/18 14:30 58 15 100 Mechanical Ventilator 30 I&O Intake and Output 05/31/18 06/01/18 18:59 06:59 Intake Total 850 ml 1400 ml Output Total 440 ml 550 ml Balance 410 ml 850 ml Intake Free Water 100 ml 300 ml IV Total 200 ml 500 ml Tube Feeding 550 ml 600 ml Blood Product 0 ml Output Urine Total 440 ml 550 ml # Bowel Movements 1 1 Dressing: other Wound: other Drains: other Cardiovascular: RSR Respiratory: clear, decreased breath sounds Abdomen: soft, present bowel sounds Extremities: other Laboratory Tests Test 06/01/18 04:20 White Blood Count 3.8 K/UL (4.8-10.8) L Red Blood Count 3.29 M/UL (4.70-6.10) L Hemoglobin 8.2 G/DL (14.2-18.0) L Hematocrit 25.5 % (42.0-52.0) L Mean Corpuscular Volume 78 FL (80-99) L Mean Corpuscular Hemoglobin 25.1 PG (27.0-31.0) L Mean Corpuscular Hemoglobin Concent 32.3 G/DL (32.0-36.0) Red Cell Distribution Width 16.2 % (11.6-14.8) H Platelet Count 144 K/UL (150-450) L Mean Platelet Volume 6.4 FL (6.5-10.1) L Neutrophils (%) (Auto) 67.0 % (45.0-75.0) Lymphocytes (%) (Auto) 17.6 % (20.0-45.0) L Monocytes (%) (Auto) 12.9 % (1.0-10.0) H Eosinophils (%) (Auto) 2.0 % (0.0-3.0) Basophils (%) (Auto) 0.5 % (0.0-2.0) Sodium Level 145 MMOL/L (136-145) Potassium Level 3.9 MMOL/L (3.5-5.1) Chloride Level 111 MMOL/L (98-107) H Carbon Dioxide Level 29 MMOL/L (21-32) Anion Gap 6 mmol/L (5-15) Blood Urea Nitrogen 30 mg/dL (7-18) H Creatinine 0.6 MG/DL (0.55-1.30) Estimat Glomerular Filtration Rate mL/min (>60) Glucose Level 104 MG/DL (74-106) Calcium Level 9.0 MG/DL (8.5-10.1) Total Bilirubin 0.4 MG/DL (0.2-1.0) Aspartate Amino Transf (AST/SGOT) 34 U/L (15-37) Alanine Aminotransferase (ALT/SGPT) 8 U/L (12-78) L Alkaline Phosphatase 251 U/L (46-116) H Total Protein 6.1 G/DL (6.4-8.2) L Albumin 1.6 G/DL (3.4-5.0) L Globulin 4.5 g/dL Albumin/Globulin Ratio 0.4 (1.0-2.7) L Plan Problems: (1) Decubitus ulcer Assessment & Plan: Right hip decubitus ulcer approximately 3cm x 3cm and full thickness. 20% sloth. no odor. no drainage. no signs of active infection. chronic and seems to be slowly healing with some granulation tissue. sacral dti without open skin. no drainage. no signs of infection. signs of prior healing wound noted. all wounds present upon admission and will be cared for during hospital stay. -cont with current medical treatment plan -nutritional support with feeds -turn q2h -air soft mattress -heel protectors -clean sacral area and apply foam dressing q7d and prn -clean right hip wound with NS, apply therahoney and cover with foam dressing thank you (2) Abnormal LFTs Assessment & Plan: agree with GI. high risk for biopsy. possible liver disease trend labs. Zev Candelaria Jun 01, 2018 14:31
[2018-06-01 16:00] VITALS: BP 135/66
--- NOTE | 2018-06-01 17:49 | Pulmonolgy Critical Care Note ---
Critical Care - Asmt/Plan Assessment/Plan: Pulmonary CCM FU Note 72-year-old male with multiple medical problems including stroke and respiratory failure, presents with active seizures. The patient with history of tracheostomy and respiratory failure. The patient with recent hospitalization at [facility] where he was diagnosed with pulmonary tuberculosis and recent hospitalization at [place] for prolonged respiratory failure. The patient was unable to wean off the respirator and was transferred to subacute. Patient is G-tube/trach/vent dependent. Patient was noted to be actively seizing and controlled in the ER but remains less responsive. The patient was brought in for evaluation for ongoing management. I was called to assist with pulmonary status and further evaluation recommendations. The patient chart was reviewed. The care discussed with the primary MD. The patient currently comfortable on the ventilator care and chart discussed PMH Aspiration pneumonia Fungal UTI Respiratory failure with hypoxemia Dysphagia, status post PEG Malfunctioning G-tube ,status post replacement Hypoxemia Cerebrovascular disease with dementia Chronic diastolic congestive heart failure Electrolyte abnormalities: hypokalemia ,hypomagnesemia ,hyponatremia Microcytic anemia, suspecting blood loss Abnormal LFT Severe protein calorie malnutrition Seizure disorder BPH MEDS reviewed and reconciled SOCIAL HISTORY snf patient; disabled ROS unable PHYSICAL Sp02 EP Interpretation: reviewed, normal General Appearance: chronically ill appearing Head: normocephalic, atraumatic Eyes: bilateral eye normal inspection ENT: dry Neck: trach, carotid 2+ Respiratory: decreased breath sounds, scattered rhonchi bilaterally; no wheeze Cardiovascular : regular rate, rhythm, no murmur without MRG Gastrointestinal: non tender, soft, non-distended, no guarding, no rebound; GT Musculoskeletal: no CCE poorly responsive skin noted Labs Test 05/27/18 03:46 05/27/18 04:00 05/27/18 11:25 Arterial Blood pH 7.338 (7.350-7.450) Arterial Blood Partial Pressure CO2 57.0 mmHg (35.0-45.0) Arterial Blood Partial Pressure O2 101.7 mmHg (75.0-100.0) Arterial Blood HCO3 29.9 mmol/L (22.0-26.0) Arterial Blood Oxygen Saturation 97.0 % (95-100) Arterial Blood Base Excess 3.1 (-2-2) Derek Test Positive White Blood Count 12.1 K/UL (4.8-10.8) Red Blood Count 4.46 M/UL (4.70-6.10) Hemoglobin 11.0 G/DL (14.2-18.0) Hematocrit 35.0 % (42.0-52.0) Mean Corpuscular Volume 78 FL (80-99) Mean Corpuscular Hemoglobin 24.6 PG (27.0-31.0) Mean Corpuscular Hemoglobin Concent 31.4 G/DL (32.0-36.0) Red Cell Distribution Width 16.8 % (11.6-14.8) Platelet Count 337 K/UL (150-450) Mean Platelet Volume 5.1 FL (6.5-10.1) Neutrophils (%) (Auto) % (45.0-75.0) Lymphocytes (%) (Auto) % (20.0-45.0) Monocytes (%) (Auto) % (1.0-10.0) Eosinophils (%) (Auto) % (0.0-3.0) Basophils (%) (Auto) % (0.0-2.0) Urine Color Yellow Urine Appearance Slightly cloudy Urine pH 6.5 (4.5-8.0) Urine Specific [place] 1.015 (1.005-1.035) Urine Protein 3+ (NEGATIVE) Urine Glucose (UA) Negative (NEGATIVE) Urine Ketones Negative (NEGATIVE) Urine Blood 3+ (NEGATIVE) Urine Nitrite Negative (NEGATIVE) Urine Bilirubin Negative (NEGATIVE) Urine Urobilinogen 1 MG/DL (0.0-1.0) Urine Leukocyte Esterase 3+ (NEGATIVE) Urine RBC 10-15 /HPF (0 - 0) Urine WBC 40-60 /HPF (0 - 0) Urine Squamous Epithelial Cells Few /LPF (NONE/OCC) Urine Bacteria Moderate /HPF (NONE) Urine Coarse Granular Casts 0-2 /LPF (NONE) Urine Yeast Few /HPF (NONE) Sodium Level 139 MMOL/L (136-145) Potassium Level 5.2 MMOL/L (3.5-5.1) Chloride Level 103 MMOL/L (98-107) Carbon Dioxide Level 29 MMOL/L (21-32) Anion Gap 8 mmol/L (5-15) Blood Urea Nitrogen 25 mg/dL (7-18) Creatinine 0.7 MG/DL (0.55-1.30) Estimat Glomerular Filtration Rate mL/min (>60) Glucose Level 102 MG/DL (74-106) Lactic Acid Level 2.40 mmol/L (0.4-2.0) 2.20 mmol/L (0.66-2.22) Calcium Level 9.4 MG/DL (8.5-10.1) Phosphorus Level 4.9 MG/DL (2.5-4.9) Magnesium Level 1.8 MG/DL (1.8-2.4) Total Bilirubin 0.6 MG/DL (0.2-1.0) Aspartate Amino Transf (AST/SGOT) 48 U/L (15-37) Alanine Aminotransferase (ALT/SGPT) 18 U/L (12-78) Alkaline Phosphatase 444 U/L (46-116) Total Creatine Kinase 36 U/L (26-308) Creatine Kinase MB 0.6 NG/ML (0.0-3.6) Creatine Kinase MB Relative Index 1.6 Troponin I 0.014 ng/mL (0.000-0.056) Pro-B-Type Natriuretic Peptide 614 pg/mL (0-125) Total Protein 7.9 G/DL (6.4-8.2) Albumin 2.1 G/DL (3.4-5.0) Globulin 5.8 g/dL Albumin/Globulin Ratio 0.4 (1.0-2.7) IMPRESSION respiratory failure seizure possible sepsis chronic encephalopathy protein calorie malnutrition trach leukocytosis pulmonary TB debility hypoxemia htn PLAN ID reviewed neuro noted care noted IV antibiotics respiratory care as is aspiration precautions supportive care and monitor suction PRN follow clinically oxygen therapy vent management prognosis guarded acute and requires continued ICU care Critical Care - Objective Last 24 Hour Vital Signs Date Time Temp Pulse Resp B/P (MAP) Pulse Ox O2 Delivery O2 Flow Rate FiO2 06/01/18 17:02 66 20 30 06/01/18 16:00 30 06/01/18 16:00 Mechanical Ventilator 06/01/18 14:35 63 21 30 06/01/18 14:07 64 20 99 Mechanical Ventilator 30 06/01/18 14:00 63 22 98 Mechanical Ventilator 30 06/01/18 12:45 65 19 30 06/01/18 12:00 97.9 66 22 131/61 (84) 100 06/01/18 12:00 30 06/01/18 12:00 66 06/01/18 12:00 Mechanical Ventilator 06/01/18 11:16 63 19 100 Mechanical Ventilator 30 06/01/18 11:09 51 21 100 Mechanical Ventilator 30 06/01/18 10:32 61 20 30 06/01/18 09:13 70 24 Mechanical Ventilator 30 06/01/18 09:12 70 24 30 06/01/18 09:05 70 145/67 06/01/18 08:51 70 145/67 06/01/18 08:00 30 06/01/18 08:00 97.9 70 23 145/67 (93) 100 06/01/18 08:00 68 06/01/18 08:00 Mechanical Ventilator 06/01/18 07:38 65 20 100 Mechanical Ventilator 30 06/01/18 07:31 67 21 99 Mechanical Ventilator 30 06/01/18 06:45 67 21 30 06/01/18 05:14 67 12 30 06/01/18 04:00 Mechanical Ventilator 06/01/18 04:00 98.1 79 18 122/75 (91) 100 06/01/18 04:00 30 06/01/18 04:00 65 06/01/18 03:06 61 13 100 Mechanical Ventilator 30 06/01/18 03:02 60 12 100 Mechanical Ventilator 30 06/01/18 03:02 60 12 30 06/01/18 00:46 69 13 30 06/01/18 00:00 60 06/01/18 00:00 98.2 70 16 128/70 (89) 100 06/01/18 00:00 Mechanical Ventilator 06/01/18 00:00 Mechanical Ventilator 06/01/18 00:00 30 05/31/18 23:25 71 12 100 Mechanical Ventilator 30 05/31/18 23:16 60 13 30 05/31/18 23:14 60 12 100 Mechanical Ventilator 30 05/31/18 21:24 59 12 30 05/31/18 20:36 70 139/68 05/31/18 20:04 57 12 100 Mechanical Ventilator 30 05/31/18 20:03 58 12 100 Mechanical Ventilator 30 05/31/18 20:00 Mechanical Ventilator 05/31/18 20:00 98.2 70 16 128/70 (89) 100 05/31/18 20:00 57 05/31/18 20:00 30 05/31/18 18:35 58 12 30 Critical Care - Subjective ROS Limited/Unobtainable: Yes Condition: stable FI02: 30 Vent Support Breath Rate: 12 Vent Support Mode: AC Vent Tidal Volume: 500 Sputum Amount: Moderate PEEP: 5.0 PIP: 27 Tube Feeding Amount: 55 I&O: Intake and Output 05/31/18 06/01/18 18:59 06:59 Intake Total 850 ml 1400 ml Output Total 440 ml 550 ml Balance 410 ml 850 ml Intake Free Water 100 ml 300 ml IV Total 200 ml 500 ml Tube Feeding 550 ml 600 ml Blood Product 0 ml Output Urine Total 440 ml 550 ml # Bowel Movements 1 1 Jones Rasmussen MD Jun 01, 2018 17:49
[2018-06-01 20:00] VITALS: BP_SYST 122; BP_SYST 142; BP_DIAS 60; BP_DIAS 78
[2018-06-01] MEDS: Tamsulosin 0.4mg cap ORAL SCH (20:53)
[2018-06-02] VITALS: BP 132/72
[2018-06-02] MEDS: Albuterol/Ipratropium 3ml neb HHN SCH ×6 (02:41→23:16)
[2018-06-02 04:00] VITALS: BP 140/66
[2018-06-02 06:09] LABS: HEMATOCRIT 24.9 % (42.0-52.0); HEMOGLOBIN 7.9 G/DL (14.2-18.0); MEAN CORPUSCULAR VOLUME 78 FL (80-99); PLATELET COUNT 127 K/UL (150-450); RED BLOOD COUNT 3.18 M/UL (4.70-6.10); RED CELL DISTRIBUTION WIDTH 16.2 % (11.6-14.8); WHITE BLOOD COUNT 4.2 K/UL (4.8-10.8)
[2018-06-02 06:12] LABS: INR 1.1 (0.9-1.1)
[2018-06-02 06:54] LABS: ALANINE AMINOTRANSFERASE 16 U/L (12-78); ALBUMIN 1.6 G/DL (3.4-5.0); ALBUMIN/GLOBULIN RATIO 0.4 (1.0-2.7); ALKALINE PHOSPHATASE 260 U/L (46-116); ANION GAP 5 mmol/L (5-15); ASPARTATE AMINO TRANSFERASE 41 U/L (15-37); BILIRUBIN,TOTAL 0.5 MG/DL (0.2-1.0); BLOOD UREA NITROGEN 28 mg/dL (7-18); CALCIUM 8.4 MG/DL (8.5-10.1); CARBON DIOXIDE 28 MMOL/L (21-32); CHLORIDE 110 MMOL/L (98-107); CREATININE 0.5 MG/DL (0.55-1.30); SODIUM 143 MMOL/L (136-145)
--- NOTE | 2018-06-02 07:58 | General Progress Note ---
Assessment/Plan Problem List: (1) Toxic metabolic encephalopathy ICD Codes: G92 - Toxic encephalopathy SNOMED: 257621134 (2) HTN (hypertension) ICD Codes: I10 - Essential (primary) hypertension SNOMED: 09752971 (3) Aspiration pneumonia ICD Codes: J69.0 - Pneumonitis due to inhalation of food and vomit SNOMED: 304574529 (4) Sepsis ICD Codes: A41.9 - Sepsis, unspecified organism SNOMED: 50160984 (5) Status epilepticus ICD Codes: G40.901 - Epilepsy, unspecified, not intractable, with status epilepticus SNOMED: 008475449 (6) UTI (urinary tract infection), bacterial ICD Codes: N39.0 - Urinary tract infection, site not specified; A49.9 - Bacterial infection, unspecified SNOMED: 723036022 Assessment/Plan ivf tube feeds monitor residuals sz rx iv abx follow up cultures monitor cxr vent support resp rx Subjective ROS Limited/Unobtainable: Yes Constitutional: Reports: malaise, weakness HEENT: Reports: no symptoms Cardiovascular: Reports: no symptoms Respiratory: Reports: shortness of breath Gastrointestinal/Abdominal: Reports: difficulty swallowing Genitourinary: Reports: no symptoms Neurologic/Psychiatric: Reports: pre-existing deficit, seizure Endocrine: Reports: no symptoms Hematologic/Lymphatic: Reports: no symptoms Allergies: Coded Allergies: No Known Allergies (Unverified , 01/27/17) All Systems: reviewed and negative except above Subjective cont current rx gt feeds sz rx abx per ID vent resp care transfuse- d/w risk and benefits- she agrees dc planning tomorrow Objective Last 24 Hour Vital Signs Date Time Temp Pulse Resp B/P (MAP) Pulse Ox O2 Delivery O2 Flow Rate FiO2 06/02/18 07:35 72 16 100 Mechanical Ventilator 30 06/02/18 07:27 66 18 100 Mechanical Ventilator 30 06/02/18 07:24 66 18 30 06/02/18 05:08 65 18 30 06/02/18 04:00 Mechanical Ventilator 06/02/18 04:00 98.9 64 24 140/66 (90) 100 06/02/18 04:00 30 06/02/18 04:00 64 06/02/18 02:48 63 12 100 Mechanical Ventilator 30 06/02/18 02:41 65 12 30 06/02/18 02:41 66 12 100 Mechanical Ventilator 30 06/02/18 00:57 69 22 30 06/02/18 00:00 Mechanical Ventilator 06/02/18 00:00 98.6 63 24 132/72 (92) 100 06/02/18 00:00 68 06/02/18 00:00 30 06/01/18 23:43 67 18 100 Mechanical Ventilator 30 06/01/18 23:36 65 16 100 Mechanical Ventilator 30 06/01/18 23:36 67 20 30 06/01/18 20:54 78 142/78 06/01/18 20:51 68 22 30 06/01/18 20:00 75 06/01/18 20:00 98.0 70 24 142/78 (99) 100 06/01/18 20:00 Mechanical Ventilator 06/01/18 20:00 30 06/01/18 19:39 69 20 100 Mechanical Ventilator 30 06/01/18 19:29 69 18 30 06/01/18 19:29 62 16 100 Mechanical Ventilator 30 06/01/18 17:02 66 20 30 06/01/18 16:00 30 06/01/18 16:00 Mechanical Ventilator 06/01/18 16:00 97.6 70 22 135/66 (89) 100 06/01/18 16:00 69 06/01/18 14:35 63 21 30 06/01/18 14:07 64 20 99 Mechanical Ventilator 30 06/01/18 14:00 63 22 98 Mechanical Ventilator 30 06/01/18 12:45 65 19 30 06/01/18 12:00 97.9 66 22 131/61 (84) 100 06/01/18 12:00 30 06/01/18 12:00 66 06/01/18 12:00 Mechanical Ventilator 06/01/18 11:16 63 19 100 Mechanical Ventilator 30 06/01/18 11:09 51 21 100 Mechanical Ventilator 30 06/01/18 10:32 61 20 30 06/01/18 09:13 70 24 Mechanical Ventilator 30 06/01/18 09:12 70 24 30 06/01/18 09:05 70 145/67 06/01/18 08:51 70 145/67 06/01/18 08:00 30 06/01/18 08:00 97.9 70 23 145/67 (93) 100 06/01/18 08:00 68 06/01/18 08:00 Mechanical Ventilator Intake and Output 06/01/18 06/02/18 19:00 07:00 Intake Total 1050 ml 705 ml Output Total 600 ml 800 ml Balance 450 ml -95 ml Intake Free Water 300 ml IV Total 100 ml 100 ml Tube Feeding 650 ml 605 ml Output Urine Total 600 ml 800 ml Laboratory Tests 06/02/18 04:22: White Blood Count 4.2L, Red Blood Count 3.18L, Hemoglobin 7.9L, Hematocrit 24.9L , Mean Corpuscular Volume 78L, Mean Corpuscular Hemoglobin 24.8L, Mean Corpuscular Hemoglobin Concent 31.6L, Red Cell Distribution Width 16.2H, Platelet Count 127L, Mean Platelet Volume 5.4L, Neutrophils (%) (Auto) , Lymphocytes (%) (Auto) , Monocytes (%) (Auto) , Eosinophils (%) (Auto) , Basophils (%) (Auto) , Neutrophils % (Manual) [Pending], Lymphocytes % (Manual) [Pending], Platelet Estimate [Pending], Platelet Morphology [Pending], Prothrombin Time 11.8H, Prothromb Time International Ratio 1.1, Activated Partial Thromboplast Time 33, Sodium Level 143, Potassium Level 4.0, Chloride Level 110H, Carbon Dioxide Level 28, Anion Gap 5, Blood Urea Nitrogen 28H, Creatinine 0.5L, Estimat Glomerular Filtration Rate , Glucose Level 96, Calcium Level 8.4L, Total Bilirubin 0.5, Aspartate Amino Transf (AST/SGOT) 41H, Alanine Aminotransferase (ALT/SGPT) 16, Alkaline Phosphatase 260H, Total Protein 6.0L, Albumin 1.6L, Globulin 4.4, Albumin/Globulin Ratio 0.4L Height (Feet): 5 Height (Inches): 7.00 Weight (Pounds): 135 Objective General Appearance: WD/WN, lethargic, confused Neck: supple Cardiovascular: normal rate, regular rhythm Respiratory/Chest: rhonchi - bilaterally Abdomen: normal bowel sounds, non tender, soft, no organomegaly Edema: no edema noted Arm (L), no edema noted Arm (R), no edema noted Leg (L), no edema noted Leg (R), no edema noted Pedal (L), no edema noted Pedal (R), no edema noted Generalized Jarrod Vásquez MD Jun 02, 2018 07:58
[2018-06-02 08:00] VITALS: BP 130/59
--- NOTE | 2018-06-02 08:22 | Pulmonology Progress Note ---
Assessment/Plan Assessment/Plan IMPRESSION respiratory failure seizure sepsis chronic encephalopathy protein calorie malnutrition trach leukocytosis pulmonary TB debility hypoxemia htn PLAN ID clearance neuro noted care noted IV antibiotics reviewed respiratory care as is aspiration precautions supportive care and monitor suction PRN follow clinically oxygen therapy vent management- maintain on AC prognosis guarded impression, plan, and exam edited and reviewed in detail care discussed with RN Subjective ROS Limited/Unobtainable: Yes Allergies: Coded Allergies: No Known Allergies (Unverified , 01/27/17) Subjective care noted on vent poor LOC Objective Last 24 Hour Vital Signs Date Time Temp Pulse Resp B/P (MAP) Pulse Ox O2 Delivery O2 Flow Rate FiO2 06/02/18 07:35 72 16 100 Mechanical Ventilator 30 06/02/18 07:27 66 18 100 Mechanical Ventilator 30 06/02/18 07:24 66 18 30 06/02/18 05:08 65 18 30 06/02/18 04:00 Mechanical Ventilator 06/02/18 04:00 98.9 64 24 140/66 (90) 100 06/02/18 04:00 30 06/02/18 04:00 64 06/02/18 02:48 63 12 100 Mechanical Ventilator 30 06/02/18 02:41 65 12 30 06/02/18 02:41 66 12 100 Mechanical Ventilator 30 06/02/18 00:57 69 22 30 06/02/18 00:00 Mechanical Ventilator 06/02/18 00:00 98.6 63 24 132/72 (92) 100 06/02/18 00:00 68 06/02/18 00:00 30 06/01/18 23:43 67 18 100 Mechanical Ventilator 30 06/01/18 23:36 65 16 100 Mechanical Ventilator 30 06/01/18 23:36 67 20 30 06/01/18 20:54 78 142/78 06/01/18 20:51 68 22 30 06/01/18 20:00 75 06/01/18 20:00 98.0 70 24 142/78 (99) 100 06/01/18 20:00 Mechanical Ventilator 06/01/18 20:00 30 06/01/18 19:39 69 20 100 Mechanical Ventilator 30 06/01/18 19:29 69 18 30 06/01/18 19:29 62 16 100 Mechanical Ventilator 30 06/01/18 17:02 66 20 30 06/01/18 16:00 30 06/01/18 16:00 Mechanical Ventilator 06/01/18 16:00 97.6 70 22 135/66 (89) 100 06/01/18 16:00 69 06/01/18 14:35 63 21 30 06/01/18 14:07 64 20 99 Mechanical Ventilator 30 06/01/18 14:00 63 22 98 Mechanical Ventilator 30 06/01/18 12:45 65 19 30 06/01/18 12:00 97.9 66 22 131/61 (84) 100 06/01/18 12:00 30 06/01/18 12:00 66 06/01/18 12:00 Mechanical Ventilator 06/01/18 11:16 63 19 100 Mechanical Ventilator 30 06/01/18 11:09 51 21 100 Mechanical Ventilator 30 06/01/18 10:32 61 20 30 06/01/18 09:13 70 24 Mechanical Ventilator 30 06/01/18 09:12 70 24 30 06/01/18 09:05 70 145/67 06/01/18 08:51 70 145/67 Intake and Output 06/01/18 06/02/18 19:00 07:00 Intake Total 1050 ml 705 ml Output Total 600 ml 800 ml Balance 450 ml -95 ml Intake Free Water 300 ml IV Total 100 ml 100 ml Tube Feeding 650 ml 605 ml Output Urine Total 600 ml 800 ml Objective Sp02 EP Interpretation: reviewed, normal General Appearance: chronically ill appearing Head: normocephalic, atraumatic Eyes: bilateral eye normal inspection ENT: dry Neck: trach, carotid 2+ Respiratory: decreased breath sounds, scattered rhonchi bilaterally; no wheeze , same Cardiovascular : regular rate, rhythm, no murmur without MRG Gastrointestinal: non tender, soft, non-distended, no guarding, no rebound; GT Musculoskeletal: no CCE poorly responsive skin noted Laboratory Tests 06/02/18 04:22: White Blood Count 4.2L, Red Blood Count 3.18L, Hemoglobin 7.9L, Hematocrit 24.9L , Mean Corpuscular Volume 78L, Mean Corpuscular Hemoglobin 24.8L, Mean Corpuscular Hemoglobin Concent 31.6L, Red Cell Distribution Width 16.2H, Platelet Count 127L, Mean Platelet Volume 5.4L, Neutrophils (%) (Auto) , Lymphocytes (%) (Auto) , Monocytes (%) (Auto) , Eosinophils (%) (Auto) , Basophils (%) (Auto) , Neutrophils % (Manual) [Pending], Lymphocytes % (Manual) [Pending], Platelet Estimate [Pending], Platelet Morphology [Pending], Prothrombin Time 11.8H, Prothromb Time International Ratio 1.1, Activated Partial Thromboplast Time 33, Sodium Level 143, Potassium Level 4.0, Chloride Level 110H, Carbon Dioxide Level 28, Anion Gap 5, Blood Urea Nitrogen 28H, Creatinine 0.5L, Estimat Glomerular Filtration Rate , Glucose Level 96, Calcium Level 8.4L, Total Bilirubin 0.5, Aspartate Amino Transf (AST/SGOT) 41H, Alanine Aminotransferase (ALT/SGPT) 16, Alkaline Phosphatase 260H, Total Protein 6.0L, Albumin 1.6L, Globulin 4.4, Albumin/Globulin Ratio 0.4L Current Medications Medications (Trade) Dose Ordered Sig/Iram Route PRN Reason Start Time Stop Time Status Last Admin Dose Admin Acetaminophen (Tylenol) 650 mg Q4H PRN ORAL Fever/Headache/Mild Pain 05/31/18 13:15 06/26/18 13:14 Albuterol/ Ipratropium (Albuterol/ Ipratropium) 3 ml Q4HRT HHN 06/01/18 11:00 06/06/18 10:59 06/02/18 07:27 Amlodipine Besylate (Norvasc) 10 mg DAILY ORAL 06/01/18 09:00 06/26/18 08:59 06/01/18 08:51 Artificial Tears (Akwa-Tears) 2 drop FIVE TIMES A DAY PRN BOTH EYES Dry Eyes 05/31/18 13:00 06/26/18 06:14 Ascorbic Acid (Vitamin C) 250 mg DAILY ORAL 06/01/18 09:00 06/26/18 08:59 06/01/18 08:53 Aspirin (ASA) 81 mg DAILY ORAL 06/01/18 09:00 06/26/18 08:59 06/01/18 08:51 Atorvastatin Calcium (Lipitor) 10 mg BEDTIME ORAL 05/31/18 21:00 06/26/18 20:59 06/01/18 20:52 Bisacodyl (Dulcolax) 10 mg PRN PRN RECTAL DAILY 05/31/18 13:15 06/30/18 13:14 Doxazosin Mesylate (Cardura) 1 mg DAILY ORAL 06/01/18 09:00 06/26/18 08:59 06/01/18 08:50 Ethambutol HCl (Myambutol) 800 mg DAILY ORAL 06/01/18 09:00 06/26/18 12:29 06/01/18 08:52 Famotidine (Pepcid) 20 mg DAILY ORAL 06/01/18 09:00 06/26/18 08:59 06/01/18 08:50 Isoniazid (Inh) 300 mg DAILY ORAL 06/01/18 09:00 06/26/18 08:59 06/01/18 08:52 Levetiracetam 100 ml @ 400 mls/hr Q12HR IVPB 05/31/18 21:00 06/26/18 09:29 06/01/18 20:52 Lorazepam (Ativan 2mg/ml 1ml) 2 mg Q1H PRN IV For Seizures 05/31/18 12:30 06/03/18 09:29 Metoprolol Tartrate (Lopressor) 50 mg Q12HR ORAL 05/31/18 21:00 06/26/18 08:59 06/01/18 20:54 Midodrine (Pro-Amatine) 2.5 mg THREE TIMES A DAY ORAL 05/31/18 13:00 06/26/18 08:59 06/01/18 18:01 Minocycline HCl (Minocin) 100 mg Q12HR ORAL 05/31/18 21:00 06/03/18 12:29 06/01/18 20:53 Multivitamins Therapeutic (Therapeutic Multivitamin) 1 ea DAILY ORAL 06/01/18 09:00 06/26/18 08:59 06/01/18 08:50 Pyrazinamide (Pza) 1,000 mg DAILY ORAL 06/01/18 09:00 06/26/18 08:59 06/01/18 08:52 Pyridoxine HCl (Vitamin B6) 50 mg DAILY ORAL 06/01/18 09:00 06/26/18 08:59 06/01/18 08:53 Rifampin (Rifadin) 600 mg DAILY ORAL 06/01/18 09:00 06/26/18 08:59 06/01/18 08:51 Sennosides (Senokot) 1 tab Q12H PRN ORAL Constipation 05/31/18 13:15 06/30/18 13:14 Sennosides (Senokot) 2 tab Q12H PRN ORAL Constipation 05/31/18 13:15 06/30/18 13:14 Sodium Phosphate (Fleet's Sodium Phosl Enema) 133 ml PRN PRN RECTAL Q 2 DAYS 05/31/18 13:15 06/30/18 13:14 Tamsulosin HCl (Flomax) 0.4 mg BEDTIME ORAL 05/31/18 21:00 06/26/18 20:59 06/01/18 20:53 Nakul Cisse MD Jun 02, 2018 08:22
[2018-06-02] MEDS: levETIRAcetam 1,000mg/NS100ml 100 ML IVPB SCH ×2 (09:59→21:16)
[2018-06-02] MEDS: Minocycline HCl 50mg cap ORAL SCH ×2 (10:01→21:17)
[2018-06-02] MEDS: Aspirin Baby 81mg ORAL SCH (10:02)
[2018-06-02] MEDS: Doxazosin 1mg Tab ORAL SCH (10:04)
[2018-06-02] MEDS: Multivitamin w/Minerals tab ORAL SCH (10:04)
[2018-06-02] MEDS: Isoniazid 300mg tab ORAL SCH (10:04)
[2018-06-02] MEDS: Pyridoxine 50mg tab ORAL SCH (10:04)
[2018-06-02] MEDS: Metoprolol Tartrate 50mg tab ORAL SCH ×2 (10:05→21:18)
[2018-06-02] MEDS: Ascorbic Acid 500mg tab ORAL SCH (10:05)
--- NOTE | 2018-06-02 11:43 | General Progress Note ---
Assessment/Plan Assessment/Plan Assessment - N/V - resolved - suspected early cirrhosis based on imaging - hepatitis A/B/C negative - TRISTAN negative but F-Actin (+) - ? 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, Non communicative d/w sticker hand tolerating TF (+) BM Objective Last 24 Hour Vital Signs Date Time Temp Pulse Resp B/P (MAP) Pulse Ox O2 Delivery O2 Flow Rate FiO2 06/02/18 10:45 64 16 100 Mechanical Ventilator 30 06/02/18 10:42 63 17 30 06/02/18 10:05 68 130/59 06/02/18 10:05 68 130/59 06/02/18 09:30 68 16 30 06/02/18 08:00 71 06/02/18 08:00 98.1 72 24 130/59 (82) 100 06/02/18 07:35 72 16 100 Mechanical Ventilator 30 06/02/18 07:27 66 18 100 Mechanical Ventilator 30 06/02/18 07:24 66 18 30 06/02/18 05:08 65 18 30 06/02/18 04:00 Mechanical Ventilator 06/02/18 04:00 98.9 64 24 140/66 (90) 100 06/02/18 04:00 30 06/02/18 04:00 64 06/02/18 02:48 63 12 100 Mechanical Ventilator 30 06/02/18 02:41 65 12 30 06/02/18 02:41 66 12 100 Mechanical Ventilator 30 06/02/18 00:57 69 22 30 06/02/18 00:00 Mechanical Ventilator 06/02/18 00:00 98.6 63 24 132/72 (92) 100 06/02/18 00:00 68 06/02/18 00:00 30 06/01/18 23:43 67 18 100 Mechanical Ventilator 30 06/01/18 23:36 65 16 100 Mechanical Ventilator 30 06/01/18 23:36 67 20 30 06/01/18 20:54 78 142/78 06/01/18 20:51 68 22 30 06/01/18 20:00 75 06/01/18 20:00 98.0 70 24 142/78 (99) 100 06/01/18 20:00 Mechanical Ventilator 06/01/18 20:00 30 06/01/18 19:39 69 20 100 Mechanical Ventilator 30 06/01/18 19:29 69 18 30 06/01/18 19:29 62 16 100 Mechanical Ventilator 30 06/01/18 17:02 66 20 30 06/01/18 16:00 30 06/01/18 16:00 Mechanical Ventilator 06/01/18 16:00 97.6 70 22 135/66 (89) 100 06/01/18 16:00 69 06/01/18 14:35 63 21 30 06/01/18 14:07 64 20 99 Mechanical Ventilator 30 06/01/18 14:00 63 22 98 Mechanical Ventilator 30 06/01/18 12:45 65 19 30 06/01/18 12:00 97.9 66 22 131/61 (84) 100 06/01/18 12:00 30 06/01/18 12:00 66 06/01/18 12:00 Mechanical Ventilator Intake and Output 06/01/18 06/02/18 19:00 07:00 Intake Total 1050 ml 705 ml Output Total 600 ml 800 ml Balance 450 ml -95 ml Intake Free Water 300 ml IV Total 100 ml 100 ml Tube Feeding 650 ml 605 ml Output Urine Total 600 ml 800 ml Laboratory Tests 06/02/18 04:22: White Blood Count 4.2L, Red Blood Count 3.18L, Hemoglobin 7.9L, Hematocrit 24.9L , Mean Corpuscular Volume 78L, Mean Corpuscular Hemoglobin 24.8L, Mean Corpuscular Hemoglobin Concent 31.6L, Red Cell Distribution Width 16.2H, Platelet Count 127L, Mean Platelet Volume 5.4L, Neutrophils (%) (Auto) , Lymphocytes (%) (Auto) , Monocytes (%) (Auto) , Eosinophils (%) (Auto) , Basophils (%) (Auto) , Differential Total Cells Counted 100, Neutrophils % ( Manual) 72, Lymphocytes % (Manual) 15L, Monocytes % (Manual) 12H, Eosinophils % (Manual) 1, Basophils % (Manual) 0, Band Neutrophils 0, Platelet Estimate DecreasedL, Platelet Morphology Normal, Hypochromasia 3+, Anisocytosis 1+, Microcytosis 1+, Prothrombin Time 11.8H, Prothromb Time International Ratio 1.1 , Activated Partial Thromboplast Time 33, Sodium Level 143, Potassium Level 4.0 , Chloride Level 110H, Carbon Dioxide Level 28, Anion Gap 5, Blood Urea Nitrogen 28H, Creatinine 0.5L, Estimat Glomerular Filtration Rate , Glucose Level 96, Calcium Level 8.4L, Total Bilirubin 0.5, Aspartate Amino Transf (AST/ SGOT) 41H, Alanine Aminotransferase (ALT/SGPT) 16, Alkaline Phosphatase 260H, Total Protein 6.0L, Albumin 1.6L, Globulin 4.4, Albumin/Globulin Ratio 0.4L Height (Feet): 5 Height (Inches): 7.00 Weight (Pounds): 135 Objective Thin AA man NCAT neck (+) trach CTA RRR soft ND NT, (+) GT no edema OBS Oli Amaya MD Jun 02, 2018 11:43
--- NOTE | 2018-06-02 11:55 | Infectious Diseases Prog Note ---
Assessment/Plan Assessment/Plan antibiotics : isoniazid, rifampin, ethambutol, pyrazinamide, pyridoxine, minocycline A 1. acenitobacter pneumonia 2. pulmonary tuberculosis 3. leucocytosis 4. respiratory failure 5. seizures P 1. continue minocycline 3 more days 2. continue isoniazid, rifampin, ethambutol, pyrazinamide, pyridoxine 3. will follow up cultures Subjective ROS Limited/Unobtainable: Yes Allergies: Coded Allergies: No Known Allergies (Unverified , 01/27/17) Objective Vital Signs Last 24 Hour Vital Signs Date Time Temp Pulse Resp B/P (MAP) Pulse Ox O2 Delivery O2 Flow Rate FiO2 06/02/18 10:45 64 16 100 Mechanical Ventilator 30 06/02/18 10:42 63 17 30 06/02/18 10:05 68 130/59 06/02/18 10:05 68 130/59 06/02/18 09:30 68 16 30 06/02/18 08:00 71 06/02/18 08:00 98.1 72 24 130/59 (82) 100 06/02/18 07:35 72 16 100 Mechanical Ventilator 30 06/02/18 07:27 66 18 100 Mechanical Ventilator 30 06/02/18 07:24 66 18 30 06/02/18 05:08 65 18 30 06/02/18 04:00 Mechanical Ventilator 06/02/18 04:00 98.9 64 24 140/66 (90) 100 06/02/18 04:00 30 06/02/18 04:00 64 06/02/18 02:48 63 12 100 Mechanical Ventilator 30 06/02/18 02:41 65 12 30 06/02/18 02:41 66 12 100 Mechanical Ventilator 30 06/02/18 00:57 69 22 30 06/02/18 00:00 Mechanical Ventilator 06/02/18 00:00 98.6 63 24 132/72 (92) 100 06/02/18 00:00 68 06/02/18 00:00 30 06/01/18 23:43 67 18 100 Mechanical Ventilator 30 06/01/18 23:36 65 16 100 Mechanical Ventilator 30 06/01/18 23:36 67 20 30 06/01/18 20:54 78 142/78 06/01/18 20:51 68 22 30 06/01/18 20:00 75 06/01/18 20:00 98.0 70 24 142/78 (99) 100 06/01/18 20:00 Mechanical Ventilator 06/01/18 20:00 30 06/01/18 19:39 69 20 100 Mechanical Ventilator 30 06/01/18 19:29 69 18 30 06/01/18 19:29 62 16 100 Mechanical Ventilator 30 06/01/18 17:02 66 20 30 06/01/18 16:00 30 06/01/18 16:00 Mechanical Ventilator 06/01/18 16:00 97.6 70 22 135/66 (89) 100 06/01/18 16:00 69 06/01/18 14:35 63 21 30 06/01/18 14:07 64 20 99 Mechanical Ventilator 30 06/01/18 14:00 63 22 98 Mechanical Ventilator 30 06/01/18 12:45 65 19 30 06/01/18 12:00 97.9 66 22 131/61 (84) 100 06/01/18 12:00 30 06/01/18 12:00 66 06/01/18 12:00 Mechanical Ventilator Height (Feet): 5 Height (Inches): 7.00 Weight (Pounds): 135 HEENT: status post trach Respiratory/Chest: lungs clear Cardiovascular: normal rate, regular rhythm, no gallop/murmur Abdomen: soft, non tender, other - GT Extremities: no edema Laboratory Tests Test 06/02/18 04:22 White Blood Count 4.2 K/UL (4.8-10.8) L Red Blood Count 3.18 M/UL (4.70-6.10) L Hemoglobin 7.9 G/DL (14.2-18.0) L Hematocrit 24.9 % (42.0-52.0) L Mean Corpuscular Volume 78 FL (80-99) L Mean Corpuscular Hemoglobin 24.8 PG (27.0-31.0) L Mean Corpuscular Hemoglobin Concent 31.6 G/DL (32.0-36.0) L Red Cell Distribution Width 16.2 % (11.6-14.8) H Platelet Count 127 K/UL (150-450) L Mean Platelet Volume 5.4 FL (6.5-10.1) L Neutrophils (%) (Auto) % (45.0-75.0) Lymphocytes (%) (Auto) % (20.0-45.0) Monocytes (%) (Auto) % (1.0-10.0) Eosinophils (%) (Auto) % (0.0-3.0) Basophils (%) (Auto) % (0.0-2.0) Differential Total Cells Counted 100 Neutrophils % (Manual) 72 % (45-75) Lymphocytes % (Manual) 15 % (20-45) L Monocytes % (Manual) 12 % (1-10) H Eosinophils % (Manual) 1 % (0-3) Basophils % (Manual) 0 % (0-2) Band Neutrophils 0 % (0-8) Platelet Estimate Decreased L Platelet Morphology Normal Hypochromasia 3+ Anisocytosis 1+ Microcytosis 1+ Prothrombin Time 11.8 SEC (9.30-11.50) H Prothromb Time International Ratio 1.1 (0.9-1.1) Activated Partial Thromboplast Time 33 SEC (23-33) Sodium Level 143 MMOL/L (136-145) Potassium Level 4.0 MMOL/L (3.5-5.1) Chloride Level 110 MMOL/L (98-107) H Carbon Dioxide Level 28 MMOL/L (21-32) Anion Gap 5 mmol/L (5-15) Blood Urea Nitrogen 28 mg/dL (7-18) H Creatinine 0.5 MG/DL (0.55-1.30) L Estimat Glomerular Filtration Rate mL/min (>60) Glucose Level 96 MG/DL (74-106) Calcium Level 8.4 MG/DL (8.5-10.1) L Total Bilirubin 0.5 MG/DL (0.2-1.0) Aspartate Amino Transf (AST/SGOT) 41 U/L (15-37) H Alanine Aminotransferase (ALT/SGPT) 16 U/L (12-78) Alkaline Phosphatase 260 U/L (46-116) H Total Protein 6.0 G/DL (6.4-8.2) L Albumin 1.6 G/DL (3.4-5.0) L Globulin 4.4 g/dL Albumin/Globulin Ratio 0.4 (1.0-2.7) L Current Medications Medications (Trade) Dose Ordered Sig/Iram Route PRN Reason Start Time Stop Time Status Last Admin Dose Admin Acetaminophen (Tylenol) 650 mg Q4H PRN ORAL Fever/Headache/Mild Pain 05/31/18 13:15 06/26/18 13:14 Albuterol/ Ipratropium (Albuterol/ Ipratropium) 3 ml Q4HRT HHN 06/01/18 11:00 06/06/18 10:59 06/02/18 10:46 Amlodipine Besylate (Norvasc) 10 mg DAILY ORAL 06/01/18 09:00 06/26/18 08:59 06/02/18 10:05 Artificial Tears (Akwa-Tears) 2 drop FIVE TIMES A DAY PRN BOTH EYES Dry Eyes 05/31/18 13:00 06/26/18 06:14 Ascorbic Acid (Vitamin C) 250 mg DAILY ORAL 06/01/18 09:00 06/26/18 08:59 06/02/18 10:05 Aspirin (ASA) 81 mg DAILY ORAL 06/01/18 09:00 06/26/18 08:59 06/02/18 10:02 Atorvastatin Calcium (Lipitor) 10 mg BEDTIME ORAL 05/31/18 21:00 06/26/18 20:59 06/01/18 20:52 Bisacodyl (Dulcolax) 10 mg PRN PRN RECTAL DAILY 05/31/18 13:15 06/30/18 13:14 Doxazosin Mesylate (Cardura) 1 mg DAILY ORAL 06/01/18 09:00 06/26/18 08:59 06/02/18 10:04 Ethambutol HCl (Myambutol) 800 mg DAILY ORAL 06/01/18 09:00 06/26/18 12:29 06/02/18 10:03 Famotidine (Pepcid) 20 mg DAILY ORAL 06/01/18 09:00 06/26/18 08:59 06/02/18 10:03 Isoniazid (Inh) 300 mg DAILY ORAL 06/01/18 09:00 06/26/18 08:59 06/02/18 10:04 Levetiracetam 100 ml @ 400 mls/hr Q12HR IVPB 05/31/18 21:00 06/26/18 09:29 06/02/18 09:59 Lorazepam (Ativan 2mg/ml 1ml) 2 mg Q1H PRN IV For Seizures 05/31/18 12:30 06/03/18 09:29 Metoprolol Tartrate (Lopressor) 50 mg Q12HR ORAL 05/31/18 21:00 06/26/18 08:59 06/02/18 10:05 Midodrine (Pro-Amatine) 2.5 mg THREE TIMES A DAY ORAL 05/31/18 13:00 06/26/18 08:59 06/02/18 10:04 Minocycline HCl (Minocin) 100 mg Q12HR ORAL 05/31/18 21:00 06/05/18 22:00 06/02/18 10:01 Multivitamins Therapeutic (Therapeutic Multivitamin) 1 ea DAILY ORAL 06/01/18 09:00 06/26/18 08:59 06/02/18 10:04 Pyrazinamide (Pza) 1,000 mg DAILY ORAL 06/01/18 09:00 06/26/18 08:59 06/02/18 10:00 Pyridoxine HCl (Vitamin B6) 50 mg DAILY ORAL 06/01/18 09:00 06/26/18 08:59 06/02/18 10:04 Rifampin (Rifadin) 600 mg DAILY ORAL 06/01/18 09:00 06/26/18 08:59 06/02/18 10:03 Sennosides (Senokot) 1 tab Q12H PRN ORAL Constipation 05/31/18 13:15 06/30/18 13:14 Sennosides (Senokot) 2 tab Q12H PRN ORAL Constipation 05/31/18 13:15 06/30/18 13:14 Sodium Phosphate (Fleet's Sodium Phosl Enema) 133 ml PRN PRN RECTAL Q 2 DAYS 05/31/18 13:15 06/30/18 13:14 Tamsulosin HCl (Flomax) 0.4 mg BEDTIME ORAL 05/31/18 21:00 06/26/18 20:59 06/01/18 20:53 Sergio Urban MD Jun 02, 2018 11:55
[2018-06-02 12:00] VITALS: BP 129/63
[2018-06-02] MEDS ORDERED: NS 275ml ONE ×4 (14:48→17:38)
[2018-06-02] MEDS ORDERED: Sterile Water For Irrig 2000ml IRRIG ONE (14:49)
[2018-06-02] MEDS ORDERED: Tubing IV Secondary IV ONE ×2 (14:49→17:38)
[2018-06-02 16:00] VITALS: BP 130/60
[2018-06-02] MEDS ORDERED: D5 1/2NS 1000ml IV ONE (17:38)
--- NOTE | 2018-06-02 19:48 | Neurology Progress Note ---
Interim History Interim History Interim History Mr. Narvaez can be aroused. He makes brief eye contact. He follows a few simple commands inconsistently. He responds to deep painful stimuli left better than right movements. He continues to be seizure free. There has been no significant change in his neurologic condition. Review of Systems Neuro Review of Systems Unable to obtain. Objective Physical Exam Last Vital Signs Date Time Temp Pulse Resp B/P (MAP) Pulse Ox O2 Delivery O2 Flow Rate FiO2 06/02/18 19:14 56 12 100 Mechanical Ventilator 30 06/02/18 16:00 98.1 130/60 (83) 05/27/18 07:00 15.0 Laboratory Tests Test 06/02/18 04:22 White Blood Count 4.2 K/UL (4.8-10.8) L Red Blood Count 3.18 M/UL (4.70-6.10) L Hemoglobin 7.9 G/DL (14.2-18.0) L Hematocrit 24.9 % (42.0-52.0) L Mean Corpuscular Volume 78 FL (80-99) L Mean Corpuscular Hemoglobin 24.8 PG (27.0-31.0) L Mean Corpuscular Hemoglobin Concent 31.6 G/DL (32.0-36.0) L Red Cell Distribution Width 16.2 % (11.6-14.8) H Platelet Count 127 K/UL (150-450) L Mean Platelet Volume 5.4 FL (6.5-10.1) L Neutrophils (%) (Auto) % (45.0-75.0) Lymphocytes (%) (Auto) % (20.0-45.0) Monocytes (%) (Auto) % (1.0-10.0) Eosinophils (%) (Auto) % (0.0-3.0) Basophils (%) (Auto) % (0.0-2.0) Differential Total Cells Counted 100 Neutrophils % (Manual) 72 % (45-75) Lymphocytes % (Manual) 15 % (20-45) L Monocytes % (Manual) 12 % (1-10) H Eosinophils % (Manual) 1 % (0-3) Basophils % (Manual) 0 % (0-2) Band Neutrophils 0 % (0-8) Platelet Estimate Decreased L Platelet Morphology Normal Hypochromasia 3+ Anisocytosis 1+ Microcytosis 1+ Prothrombin Time 11.8 SEC (9.30-11.50) H Prothromb Time International Ratio 1.1 (0.9-1.1) Activated Partial Thromboplast Time 33 SEC (23-33) Sodium Level 143 MMOL/L (136-145) Potassium Level 4.0 MMOL/L (3.5-5.1) Chloride Level 110 MMOL/L (98-107) H Carbon Dioxide Level 28 MMOL/L (21-32) Anion Gap 5 mmol/L (5-15) Blood Urea Nitrogen 28 mg/dL (7-18) H Creatinine 0.5 MG/DL (0.55-1.30) L Estimat Glomerular Filtration Rate mL/min (>60) Glucose Level 96 MG/DL (74-106) Calcium Level 8.4 MG/DL (8.5-10.1) L Total Bilirubin 0.5 MG/DL (0.2-1.0) Aspartate Amino Transf (AST/SGOT) 41 U/L (15-37) H Alanine Aminotransferase (ALT/SGPT) 16 U/L (12-78) Alkaline Phosphatase 260 U/L (46-116) H Total Protein 6.0 G/DL (6.4-8.2) L Albumin 1.6 G/DL (3.4-5.0) L Globulin 4.4 g/dL Albumin/Globulin Ratio 0.4 (1.0-2.7) L Neurologic Exam Objective PHYSICAL EXAMINATION: GENERAL: He is a well-developed, ill-looking black gentleman, lying in bed, in no acute distress. HEAD: Normocephalic and atraumatic. EENT: Examination benign. NECK: No neck rigidity was observed. NEUROLOGICAL EXAMINATION: MENTAL STATUS EXAMINATION: He could be aroused briefly on deep pain. He made brief eye contact. He followed a few simple commands inconsistently. Further mental status testing was impossible. SPEECH: Could not be tested. LANGUAGE: Could not be tested. CRANIAL NERVE EXAMINATION: II: He did blink to threat. III, IV & : External ocular movements were present on oculocephalic maneuvers. The pupils were 3 mm in diameter, equal, round, regular, and non- reactive to light. V & VII: The corneal reflexes were present bilaterally. However, the right- sided reflex was diminished compared to the left. VIII: He did not respond to loud sounds and had no nystagmus. IX & X: Gag reflex was suppressed. XI: The sternocleidomastoids and trapezii functioned minimally. XII: The tongue was in the midline. MOTOR SYSTEM: The tone was increased in all four extremities with spasticity more marked on the right than on the left. Examination of muscle mass revealed generalized muscle wasting, again more marked on the right than on the left. He moved all extremities minimally on command and on deep pain - left greater than right. SENSORY EXAMINATION: He responded deep pain in all 4 extremities by wincing. REFLEXES: Trace+ and bilaterally symmetrical at the biceps, triceps, brachioradialis. 0 at both knees and ankles. The plantar responses were extensor bilaterally. COORDINATION, STANCE & GAIT: Could not be tested. Impression/Recommendations Diagnostic Impression 1. Mr. Sagar Narvaez is a 72-year-old, [place] gentleman, of unknown handedness, who does have a past history of cerebrovascular disease with a prior stroke, pulmonary tuberculosis, chronic respiratory failure for which he has tracheostomy, and dysphagia for which he has a gastrostomy; who lives in [facility] where he was noted to have an alteration in his mental state and multiple seizures. 2. He was brought in by the paramedics and has since been hospitalized. He was given a few doses of Ativan and was also given Versed in the ambulance. 3. He can be aroused. He makes brief eye contact. He follows a few simple commands inconsistently. He responds to deep painful stimuli left better than right movements. He continues to be seizure free. There has been no significant change in his neurologic condition. 4. On neurological examination, at this time, he can be aroused briefly on deep pain. He makes brief eye contact. He follows a few simple commands inconsistently. Further mental status testing is impossible. His corneal reflex is diminished on the right side compared to the left. He moves his extremities on command and on deep pain - left > right. His deep tendon reflexes are globally diminished and his plantar responses are extensor bilaterally. 5. Laboratory data revealed a leukocytosis and findings consistent with a UTI - which have now resolved. 6. 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 His recent breakthrough seizures were most probably due to his acute UTI. Recommendations 1. Continue present management. 2. Continue Keppra 1000 mg q 12 hours. 3. Observe. Mercedes Coelho M.D., M.S.PNancy. MERCEDES COELHO Jun 02, 2018 19:48
[2018-06-02 20:00] VITALS: BP 141/63
[2018-06-02] MEDS: Tamsulosin 0.4mg cap ORAL SCH (21:17)
[2018-06-03] VITALS: BP 128/60
[2018-06-03] MEDS: Albuterol/Ipratropium 3ml neb HHN SCH ×6 (03:26→23:35)
[2018-06-03 04:00] VITALS: BP 138/70
[2018-06-03] MEDS ORDERED: MINOCYCLINE HCL ORAL (07:21)
--- NOTE | 2018-06-03 07:23 | General Progress Note ---
Assessment/Plan Problem List: (1) Toxic metabolic encephalopathy ICD Codes: G92 - Toxic encephalopathy SNOMED: 513560905 (2) HTN (hypertension) ICD Codes: I10 - Essential (primary) hypertension SNOMED: 74779532 (3) Aspiration pneumonia ICD Codes: J69.0 - Pneumonitis due to inhalation of food and vomit SNOMED: 859879706 (4) Sepsis ICD Codes: A41.9 - Sepsis, unspecified organism SNOMED: 83304979 (5) Status epilepticus ICD Codes: G40.901 - Epilepsy, unspecified, not intractable, with status epilepticus SNOMED: 109502938 (6) UTI (urinary tract infection), bacterial ICD Codes: N39.0 - Urinary tract infection, site not specified; A49.9 - Bacterial infection, unspecified SNOMED: 640116137 Status: stable Assessment/Plan ivf tube feeds monitor residuals sz rx iv abx follow up cultures monitor cxr vent support resp rx dc planning Subjective ROS Limited/Unobtainable: Yes Constitutional: Reports: malaise, weakness HEENT: Reports: no symptoms Cardiovascular: Reports: no symptoms Respiratory: Reports: no symptoms Gastrointestinal/Abdominal: Reports: difficulty swallowing Genitourinary: Reports: no symptoms Neurologic/Psychiatric: Reports: pre-existing deficit, seizure Endocrine: Reports: no symptoms Hematologic/Lymphatic: Reports: anemia Allergies: Coded Allergies: No Known Allergies (Unverified , 01/27/17) All Systems: reviewed and negative except above Subjective no events. w/o complaints. no fever or chills. no bleeding. s/p transfusion. Objective Last 24 Hour Vital Signs Date Time Temp Pulse Resp B/P (MAP) Pulse Ox O2 Delivery O2 Flow Rate FiO2 06/03/18 07:15 67 17 30 06/03/18 07:14 69 16 100 Mechanical Ventilator 30 06/03/18 07:09 58 19 100 Mechanical Ventilator 30 06/03/18 05:17 60 15 30 06/03/18 04:00 98.5 63 16 138/70 (92) 99 06/03/18 04:00 Mechanical Ventilator 06/03/18 04:00 30 06/03/18 03:49 58 06/03/18 03:30 60 12 100 Mechanical Ventilator 30 06/03/18 03:25 59 15 100 Mechanical Ventilator 30 06/03/18 03:21 57 18 30 06/03/18 00:30 59 18 30 06/03/18 00:00 97.9 65 16 128/60 (82) 100 06/03/18 00:00 Mechanical Ventilator 06/02/18 23:26 58 22 100 Mechanical Ventilator 30 06/02/18 23:24 66 06/02/18 23:16 56 16 100 Mechanical Ventilator 30 06/02/18 23:13 56 16 30 06/02/18 21:18 66 141/63 06/02/18 20:55 67 21 30 06/02/18 20:00 97.3 66 18 141/63 (89) 100 06/02/18 20:00 30 06/02/18 20:00 Mechanical Ventilator 06/02/18 19:32 62 06/02/18 19:14 56 12 100 Mechanical Ventilator 30 06/02/18 19:00 56 19 100 Mechanical Ventilator 30 06/02/18 18:58 56 19 30 06/02/18 16:40 58 20 30 06/02/18 16:00 60 06/02/18 16:00 Mechanical Ventilator 06/02/18 16:00 98.1 56 18 130/60 (83) 100 06/02/18 16:00 30 06/02/18 15:27 62 15 100 Mechanical Ventilator 30 06/02/18 15:18 61 14 100 Mechanical Ventilator 30 06/02/18 15:15 61 13 30 06/02/18 13:00 59 20 30 06/02/18 12:00 62 06/02/18 12:00 30 06/02/18 12:00 Mechanical Ventilator 06/02/18 12:00 97.7 63 22 129/63 (85) 96 06/02/18 10:57 65 16 100 Mechanical Ventilator 30 06/02/18 10:45 64 16 100 Mechanical Ventilator 30 06/02/18 10:42 63 17 30 06/02/18 10:05 68 130/59 06/02/18 10:05 68 130/59 06/02/18 09:30 68 16 30 06/02/18 08:00 30 06/02/18 08:00 71 06/02/18 08:00 Mechanical Ventilator 06/02/18 08:00 98.1 72 24 130/59 (82) 100 06/02/18 07:35 72 16 100 Mechanical Ventilator 30 10/29/18 07:27 66 18 100 Mechanical Ventilator 30 06/02/18 07:24 66 18 30 Intake and Output 06/02/18 06/03/18 19:00 07:00 Intake Total 1610 ml 860 ml Output Total 700 ml 850 ml Balance 910 ml 10 ml Intake Free Water 300 ml 200 ml IV Total 400 ml Tube Feeding 660 ml 660 ml Blood Product 250 ml Output Urine Total 700 ml 850 ml Height (Feet): 5 Height (Inches): 7.00 Weight (Pounds): 142 Objective General Appearance: WD/WN, lethargic, confused Neck: supple Cardiovascular: normal rate, regular rhythm Respiratory/Chest: rhonchi - bilaterally Abdomen: normal bowel sounds, non tender, soft, no organomegaly Edema: no edema noted Arm (L), no edema noted Arm (R), no edema noted Leg (L), no edema noted Leg (R), no edema noted Pedal (L), no edema noted Pedal (R), no edema noted Generalized Jarrod Vásquez MD Jun 03, 2018 07:23
[2018-06-03 08:00] VITALS: BP 143/71
[2018-06-03] MEDS: Isoniazid 300mg tab ORAL SCH (08:15)
[2018-06-03] MEDS: Pyridoxine 50mg tab ORAL SCH (08:15)
[2018-06-03] MEDS: Doxazosin 1mg Tab ORAL SCH (08:15)
[2018-06-03] MEDS: Minocycline HCl 50mg cap ORAL SCH ×2 (08:16→20:33)
[2018-06-03] MEDS: Multivitamin w/Minerals tab ORAL SCH (08:16)
[2018-06-03] MEDS: Aspirin Baby 81mg ORAL SCH (08:20)
[2018-06-03] MEDS: levETIRAcetam 1,000mg/NS100ml 100 ML IVPB SCH ×2 (08:20→20:32)
[2018-06-03] MEDS: Ascorbic Acid 500mg tab ORAL SCH (08:20)
[2018-06-03] MEDS: Metoprolol Tartrate 50mg tab ORAL SCH ×2 (08:20→20:34)
[2018-06-03 12:00] VITALS: BP 133/69
[2018-06-03] MEDS ORDERED: LORazepam Inj 2mg/ml 1ml IV PRN (12:00)
--- NOTE | 2018-06-03 12:34 | Pulmonology Progress Note ---
Assessment/Plan Assessment/Plan IMPRESSION respiratory failure seizure sepsis chronic encephalopathy protein calorie malnutrition trach leukocytosis pulmonary TB debility hypoxemia htn PLAN ID clearance neuro noted care noted and reviewed IV antibiotics reviewed respiratory care noted aspiration precautions supportive care and monitor suction PRN follow clinically oxygen therapy vent management- maintain on AC prognosis guarded overall; no expected improvement impression, plan, and exam edited and reviewed in detail care discussed with RN Subjective ROS Limited/Unobtainable: Yes Allergies: Coded Allergies: No Known Allergies (Unverified , 01/27/17) Subjective care noted on vent poor LOC overall no improvement Objective Last 24 Hour Vital Signs Date Time Temp Pulse Resp B/P (MAP) Pulse Ox O2 Delivery O2 Flow Rate FiO2 06/03/18 12:00 Mechanical Ventilator 06/03/18 12:00 30 06/03/18 11:14 68 16 100 Mechanical Ventilator 30 06/03/18 10:53 62 17 100 Mechanical Ventilator 30 06/03/18 10:53 62 15 30 06/03/18 08:36 57 19 30 06/03/18 08:20 61 143/71 06/03/18 08:20 61 143/71 06/03/18 08:00 30 06/03/18 08:00 Mechanical Ventilator 06/03/18 08:00 97.9 61 22 143/71 (95) 99 06/03/18 07:43 60 06/03/18 07:15 67 17 30 06/03/18 07:14 69 16 100 Mechanical Ventilator 30 06/03/18 07:09 58 19 100 Mechanical Ventilator 30 06/03/18 05:17 60 15 30 06/03/18 04:00 98.5 63 16 138/70 (92) 99 06/03/18 04:00 Mechanical Ventilator 06/03/18 04:00 30 06/03/18 03:49 58 06/03/18 03:30 60 12 100 Mechanical Ventilator 30 06/03/18 03:25 59 15 100 Mechanical Ventilator 30 06/03/18 03:21 57 18 30 06/03/18 00:30 59 18 30 06/03/18 00:00 97.9 65 16 128/60 (82) 100 06/03/18 00:00 Mechanical Ventilator 06/02/18 23:26 58 22 100 Mechanical Ventilator 30 06/02/18 23:24 66 06/02/18 23:16 56 16 100 Mechanical Ventilator 30 06/02/18 23:13 56 16 30 06/02/18 21:18 66 141/63 06/02/18 20:55 67 21 30 06/02/18 20:00 97.3 66 18 141/63 (89) 100 06/02/18 20:00 30 06/02/18 20:00 Mechanical Ventilator 06/02/18 19:32 62 06/02/18 19:14 56 12 100 Mechanical Ventilator 30 06/02/18 19:00 56 19 100 Mechanical Ventilator 30 06/02/18 18:58 56 19 30 06/02/18 16:40 58 20 30 06/02/18 16:00 60 06/02/18 16:00 Mechanical Ventilator 06/02/18 16:00 98.1 56 18 130/60 (83) 100 06/02/18 16:00 30 06/02/18 15:27 62 15 100 Mechanical Ventilator 30 06/02/18 15:18 61 14 100 Mechanical Ventilator 30 06/02/18 15:15 61 13 30 06/02/18 13:00 59 20 30 Intake and Output 06/02/18 06/03/18 19:00 07:00 Intake Total 1610 ml 860 ml Output Total 700 ml 850 ml Balance 910 ml 10 ml Intake Free Water 300 ml 200 ml IV Total 400 ml Tube Feeding 660 ml 660 ml Blood Product 250 ml Output Urine Total 700 ml 850 ml Objective Sp02 EP Interpretation: reviewed, normal General Appearance: chronically ill appearing Head: normocephalic, atraumatic Eyes: bilateral eye normal inspection ENT: dry Neck: trach, carotid 2+ Respiratory: decreased breath sounds, scattered rhonchi bilaterally; no wheeze , same Cardiovascular : regular rate, rhythm, no murmur without MRG Gastrointestinal: non tender, soft, non-distended, no guarding, no rebound; GT Musculoskeletal: no CCE poorly responsive skin noted Current Medications Medications (Trade) Dose Ordered Sig/Iram Route PRN Reason Start Time Stop Time Status Last Admin Dose Admin Acetaminophen (Tylenol) 650 mg Q4H PRN ORAL Fever/Headache/Mild Pain 05/31/18 13:15 06/26/18 13:14 Albuterol/ Ipratropium (Albuterol/ Ipratropium) 3 ml Q4HRT HHN 06/01/18 11:00 06/06/18 10:59 06/03/18 10:53 Amlodipine Besylate (Norvasc) 10 mg DAILY ORAL 06/01/18 09:00 06/26/18 08:59 06/03/18 08:20 Artificial Tears (Akwa-Tears) 2 drop FIVE TIMES A DAY PRN BOTH EYES Dry Eyes 05/31/18 13:00 06/26/18 06:14 Ascorbic Acid (Vitamin C) 250 mg DAILY ORAL 06/01/18 09:00 06/26/18 08:59 06/03/18 08:20 Aspirin (ASA) 81 mg DAILY ORAL 06/01/18 09:00 06/26/18 08:59 06/03/18 08:20 Atorvastatin Calcium (Lipitor) 10 mg BEDTIME ORAL 05/31/18 21:00 06/26/18 20:59 06/02/18 21:16 Bisacodyl (Dulcolax) 10 mg PRN PRN RECTAL DAILY 05/31/18 13:15 06/30/18 13:14 Doxazosin Mesylate (Cardura) 1 mg DAILY ORAL 06/01/18 09:00 06/26/18 08:59 06/03/18 08:15 Ethambutol HCl (Myambutol) 800 mg DAILY ORAL 06/01/18 09:00 06/26/18 12:29 06/03/18 08:21 Famotidine (Pepcid) 20 mg DAILY ORAL 06/01/18 09:00 06/26/18 08:59 06/03/18 08:15 Isoniazid (Inh) 300 mg DAILY ORAL 06/01/18 09:00 06/26/18 08:59 06/03/18 08:15 Levetiracetam 100 ml @ 400 mls/hr Q12HR IVPB 05/31/18 21:00 06/26/18 09:29 06/03/18 08:20 Lorazepam (Ativan 2mg/ml 1ml) 2 mg Q1H PRN IV For Seizures 06/03/18 12:00 06/10/18 11:59 Metoprolol Tartrate (Lopressor) 50 mg Q12HR ORAL 05/31/18 21:00 06/26/18 08:59 06/03/18 08:20 Midodrine (Pro-Amatine) 2.5 mg THREE TIMES A DAY ORAL 05/31/18 13:00 06/26/18 08:59 06/03/18 08:16 Minocycline HCl (Minocin) 100 mg Q12HR ORAL 05/31/18 21:00 06/05/18 22:00 06/03/18 08:16 Multivitamins Therapeutic (Therapeutic Multivitamin) 1 ea DAILY ORAL 06/01/18 09:00 06/26/18 08:59 06/03/18 08:16 Pyrazinamide (Pza) 1,000 mg DAILY ORAL 06/01/18 09:00 06/26/18 08:59 06/03/18 08:16 Pyridoxine HCl (Vitamin B6) 50 mg DAILY ORAL 06/01/18 09:00 06/26/18 08:59 06/03/18 08:15 Rifampin (Rifadin) 600 mg DAILY ORAL 06/01/18 09:00 06/26/18 08:59 06/03/18 08:13 Sennosides (Senokot) 1 tab Q12H PRN ORAL Constipation 05/31/18 13:15 06/30/18 13:14 Sennosides (Senokot) 2 tab Q12H PRN ORAL Constipation 05/31/18 13:15 06/30/18 13:14 Sodium Phosphate (Fleet's Sodium Phosl Enema) 133 ml PRN PRN RECTAL Q 2 DAYS 05/31/18 13:15 06/30/18 13:14 Tamsulosin HCl (Flomax) 0.4 mg BEDTIME ORAL 05/31/18 21:00 06/26/18 20:59 06/02/18 21:17 Nakul Cisse MD Jun 03, 2018 12:34
--- NOTE | 2018-06-03 12:40 | Infectious Diseases Prog Note ---
Assessment/Plan Assessment/Plan A; 1. acenitobacter pneumonia 2. pulmonary tuberculosis 3. leucocytosis resolved 4. respiratory failure 5. seizures P 1. continue minocycline 2 more days 2. continue isoniazid, rifampin, ethambutol, pyrazinamide, pyridoxine 3. TB medications are started almost on March , consider to decrease to 2 medication treatment Subjective ROS Limited/Unobtainable: Yes Allergies: Coded Allergies: No Known Allergies (Unverified , 01/27/17) Objective Vital Signs Last 24 Hour Vital Signs Date Time Temp Pulse Resp B/P (MAP) Pulse Ox O2 Delivery O2 Flow Rate FiO2 06/03/18 12:00 Mechanical Ventilator 06/03/18 12:00 30 06/03/18 11:14 68 16 100 Mechanical Ventilator 30 06/03/18 10:53 62 17 100 Mechanical Ventilator 30 06/03/18 10:53 62 15 30 06/03/18 08:36 57 19 30 06/03/18 08:20 61 143/71 06/03/18 08:20 61 143/71 06/03/18 08:00 30 06/03/18 08:00 Mechanical Ventilator 06/03/18 08:00 97.9 61 22 143/71 (95) 99 06/03/18 07:43 60 06/03/18 07:15 67 17 30 06/03/18 07:14 69 16 100 Mechanical Ventilator 30 06/03/18 07:09 58 19 100 Mechanical Ventilator 30 06/03/18 05:17 60 15 30 06/03/18 04:00 98.5 63 16 138/70 (92) 99 06/03/18 04:00 Mechanical Ventilator 06/03/18 04:00 30 06/03/18 03:49 58 06/03/18 03:30 60 12 100 Mechanical Ventilator 30 06/03/18 03:25 59 15 100 Mechanical Ventilator 30 06/03/18 03:21 57 18 30 06/03/18 00:30 59 18 30 06/03/18 00:00 97.9 65 16 128/60 (82) 100 06/03/18 00:00 Mechanical Ventilator 06/02/18 23:26 58 22 100 Mechanical Ventilator 30 06/02/18 23:24 66 06/02/18 23:16 56 16 100 Mechanical Ventilator 30 06/02/18 23:13 56 16 30 06/02/18 21:18 66 141/63 06/02/18 20:55 67 21 30 06/02/18 20:00 97.3 66 18 141/63 (89) 100 06/02/18 20:00 30 06/02/18 20:00 Mechanical Ventilator 06/02/18 19:32 62 06/02/18 19:14 56 12 100 Mechanical Ventilator 30 06/02/18 19:00 56 19 100 Mechanical Ventilator 30 06/02/18 18:58 56 19 30 06/02/18 16:40 58 20 30 06/02/18 16:00 60 06/02/18 16:00 Mechanical Ventilator 06/02/18 16:00 98.1 56 18 130/60 (83) 100 06/02/18 16:00 30 06/02/18 15:27 62 15 100 Mechanical Ventilator 30 06/02/18 15:18 61 14 100 Mechanical Ventilator 30 06/02/18 15:15 61 13 30 06/02/18 13:00 59 20 30 Height (Feet): 5 Height (Inches): 7.00 Weight (Pounds): 142 General Appearance: no acute distress HEENT: status post trach Respiratory/Chest: lungs clear Cardiovascular: normal rate Abdomen: soft, non tender, other - GT feeding Extremities: no edema Neurologic/Psychiatric: unresponsiveness Current Medications Medications (Trade) Dose Ordered Sig/Iram Route PRN Reason Start Time Stop Time Status Last Admin Dose Admin Acetaminophen (Tylenol) 650 mg Q4H PRN ORAL Fever/Headache/Mild Pain 05/31/18 13:15 06/26/18 13:14 Albuterol/ Ipratropium (Albuterol/ Ipratropium) 3 ml Q4HRT HHN 06/01/18 11:00 06/06/18 10:59 06/03/18 10:53 Amlodipine Besylate (Norvasc) 10 mg DAILY ORAL 06/01/18 09:00 06/26/18 08:59 06/03/18 08:20 Artificial Tears (Akwa-Tears) 2 drop FIVE TIMES A DAY PRN BOTH EYES Dry Eyes 05/31/18 13:00 06/26/18 06:14 Ascorbic Acid (Vitamin C) 250 mg DAILY ORAL 06/01/18 09:00 06/26/18 08:59 06/03/18 08:20 Aspirin (ASA) 81 mg DAILY ORAL 06/01/18 09:00 06/26/18 08:59 06/03/18 08:20 Atorvastatin Calcium (Lipitor) 10 mg BEDTIME ORAL 05/31/18 21:00 06/26/18 20:59 06/02/18 21:16 Bisacodyl (Dulcolax) 10 mg PRN PRN RECTAL DAILY 05/31/18 13:15 06/30/18 13:14 Doxazosin Mesylate (Cardura) 1 mg DAILY ORAL 06/01/18 09:00 06/26/18 08:59 06/03/18 08:15 Ethambutol HCl (Myambutol) 800 mg DAILY ORAL 06/01/18 09:00 06/26/18 12:29 06/03/18 08:21 Famotidine (Pepcid) 20 mg DAILY ORAL 06/01/18 09:00 06/26/18 08:59 06/03/18 08:15 Isoniazid (Inh) 300 mg DAILY ORAL 06/01/18 09:00 06/26/18 08:59 06/03/18 08:15 Levetiracetam 100 ml @ 400 mls/hr Q12HR IVPB 05/31/18 21:00 06/26/18 09:29 06/03/18 08:20 Lorazepam (Ativan 2mg/ml 1ml) 2 mg Q1H PRN IV For Seizures 06/03/18 12:00 06/10/18 11:59 Metoprolol Tartrate (Lopressor) 50 mg Q12HR ORAL 05/31/18 21:00 06/26/18 08:59 06/03/18 08:20 Midodrine (Pro-Amatine) 2.5 mg THREE TIMES A DAY ORAL 05/31/18 13:00 06/26/18 08:59 06/03/18 08:16 Minocycline HCl (Minocin) 100 mg Q12HR ORAL 05/31/18 21:00 06/05/18 22:00 06/03/18 08:16 Multivitamins Therapeutic (Therapeutic Multivitamin) 1 ea DAILY ORAL 06/01/18 09:00 06/26/18 08:59 06/03/18 08:16 Pyrazinamide (Pza) 1,000 mg DAILY ORAL 06/01/18 09:00 06/26/18 08:59 06/03/18 08:16 Pyridoxine HCl (Vitamin B6) 50 mg DAILY ORAL 06/01/18 09:00 06/26/18 08:59 06/03/18 08:15 Rifampin (Rifadin) 600 mg DAILY ORAL 06/01/18 09:00 06/26/18 08:59 06/03/18 08:13 Sennosides (Senokot) 1 tab Q12H PRN ORAL Constipation 05/31/18 13:15 06/30/18 13:14 Sennosides (Senokot) 2 tab Q12H PRN ORAL Constipation 05/31/18 13:15 06/30/18 13:14 Sodium Phosphate (Fleet's Sodium Phosl Enema) 133 ml PRN PRN RECTAL Q 2 DAYS 05/31/18 13:15 06/30/18 13:14 Tamsulosin HCl (Flomax) 0.4 mg BEDTIME ORAL 05/31/18 21:00 06/26/18 20:59 06/02/18 21:17 Rahul Shen MD Jun 03, 2018 12:40
--- NOTE | 2018-06-03 14:04 | General Surgery Progress Note ---
General Surgery-Progress Note Subjective Additional Comments alk phos cont to trend up slightly Objective Last 24 Hour Vital Signs Date Time Temp Pulse Resp B/P (MAP) Pulse Ox O2 Delivery O2 Flow Rate FiO2 06/03/18 13:00 53 17 30 06/03/18 12:00 Mechanical Ventilator 06/03/18 12:00 54 06/03/18 12:00 97.0 54 19 133/69 (90) 100 06/03/18 12:00 30 06/03/18 11:14 68 16 100 Mechanical Ventilator 30 06/03/18 10:53 62 17 100 Mechanical Ventilator 30 06/03/18 10:53 62 15 30 06/03/18 08:36 57 19 30 06/03/18 08:20 61 143/71 06/03/18 08:20 61 143/71 06/03/18 08:00 30 06/03/18 08:00 Mechanical Ventilator 06/03/18 08:00 97.9 61 22 143/71 (95) 99 06/03/18 07:43 60 06/03/18 07:15 67 17 30 06/03/18 07:14 69 16 100 Mechanical Ventilator 30 06/03/18 07:09 58 19 100 Mechanical Ventilator 30 06/03/18 05:17 60 15 30 06/03/18 04:00 98.5 63 16 138/70 (92) 99 06/03/18 04:00 Mechanical Ventilator 06/03/18 04:00 30 06/03/18 03:49 58 06/03/18 03:30 60 12 100 Mechanical Ventilator 30 06/03/18 03:25 59 15 100 Mechanical Ventilator 30 06/03/18 03:21 57 18 30 06/03/18 00:30 59 18 30 06/03/18 00:00 97.9 65 16 128/60 (82) 100 06/03/18 00:00 Mechanical Ventilator 06/02/18 23:26 58 22 100 Mechanical Ventilator 30 06/02/18 23:24 66 06/02/18 23:16 56 16 100 Mechanical Ventilator 30 06/02/18 23:13 56 16 30 06/02/18 21:18 66 141/63 06/02/18 20:55 67 21 30 06/02/18 20:00 97.3 66 18 141/63 (89) 100 06/02/18 20:00 30 06/02/18 20:00 Mechanical Ventilator 06/02/18 19:32 62 06/02/18 19:14 56 12 100 Mechanical Ventilator 30 06/02/18 19:00 56 19 100 Mechanical Ventilator 30 06/02/18 18:58 56 19 30 06/02/18 16:40 58 20 30 06/02/18 16:00 60 06/02/18 16:00 Mechanical Ventilator 06/02/18 16:00 98.1 56 18 130/60 (83) 100 06/02/18 16:00 30 06/02/18 15:27 62 15 100 Mechanical Ventilator 30 06/02/18 15:18 61 14 100 Mechanical Ventilator 30 06/02/18 15:15 61 13 30 I&O Intake and Output 06/02/18 06/03/18 19:00 07:00 Intake Total 1610 ml 860 ml Output Total 700 ml 850 ml Balance 910 ml 10 ml Intake Free Water 300 ml 200 ml IV Total 400 ml Tube Feeding 660 ml 660 ml Blood Product 250 ml Output Urine Total 700 ml 850 ml Dressing: other Wound: other Drains: other Cardiovascular: RSR Respiratory: decreased breath sounds Abdomen: soft, present bowel sounds Extremities: other Plan Problems: (1) Decubitus ulcer Assessment & Plan: Right hip decubitus ulcer approximately 3cm x 3cm and full thickness. 20% sloth. no odor. no drainage. no signs of active infection. chronic and seems to be slowly healing with some granulation tissue. sacral dti without open skin. no drainage. no signs of infection. signs of prior healing wound noted. all wounds present upon admission and will be cared for during hospital stay. -cont with current medical treatment plan -nutritional support with feeds -turn q2h -air soft mattress -heel protectors -clean sacral area and apply foam dressing q7d and prn -clean right hip wound with NS, apply therahoney and cover with foam dressing thank you (2) Abnormal LFTs Assessment & Plan: agree with GI. high risk for biopsy. possible liver disease alk phos trending up possible medication related or liver disease trend labs. Zev Candelaria Jun 03, 2018 14:03
[2018-06-03] MEDS ORDERED: Tubing IV Secondary IV ONE (15:15)
[2018-06-03] MEDS ORDERED: NS 275ml ONE (15:15)
[2018-06-03] MEDS ORDERED: Tubing Blood Filter IV ONE (15:15)
--- NOTE | 2018-06-03 15:43 | General Progress Note ---
Assessment/Plan Assessment/Plan Assessment - N/V - resolved - suspected early cirrhosis based on imaging - hepatitis A/B/C negative - TRISTAN negative but F-Actin (+) - ? 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 Objective Last 24 Hour Vital Signs Date Time Temp Pulse Resp B/P (MAP) Pulse Ox O2 Delivery O2 Flow Rate FiO2 06/03/18 14:41 56 21 30 06/03/18 14:31 60 12 100 Mechanical Ventilator 30 06/03/18 13:00 53 17 30 06/03/18 12:00 Mechanical Ventilator 06/03/18 12:00 54 06/03/18 12:00 97.0 54 19 133/69 (90) 100 06/03/18 12:00 30 06/03/18 11:14 68 16 100 Mechanical Ventilator 30 06/03/18 10:53 62 17 100 Mechanical Ventilator 30 06/03/18 10:53 62 15 30 06/03/18 08:36 57 19 30 06/03/18 08:20 61 143/71 06/03/18 08:20 61 143/71 06/03/18 08:00 30 06/03/18 08:00 Mechanical Ventilator 06/03/18 08:00 97.9 61 22 143/71 (95) 99 06/03/18 07:43 60 06/03/18 07:15 67 17 30 06/03/18 07:14 69 16 100 Mechanical Ventilator 30 06/03/18 07:09 58 19 100 Mechanical Ventilator 30 06/03/18 05:17 60 15 30 06/03/18 04:00 98.5 63 16 138/70 (92) 99 06/03/18 04:00 Mechanical Ventilator 06/03/18 04:00 30 06/03/18 03:49 58 06/03/18 03:30 60 12 100 Mechanical Ventilator 30 06/03/18 03:25 59 15 100 Mechanical Ventilator 30 06/03/18 03:21 57 18 30 06/03/18 00:30 59 18 30 06/03/18 00:00 97.9 65 16 128/60 (82) 100 06/03/18 00:00 Mechanical Ventilator 06/02/18 23:26 58 22 100 Mechanical Ventilator 30 06/02/18 23:24 66 06/02/18 23:16 56 16 100 Mechanical Ventilator 30 06/02/18 23:13 56 16 30 06/02/18 21:18 66 141/63 06/02/18 20:55 67 21 30 06/02/18 20:00 97.3 66 18 141/63 (89) 100 06/02/18 20:00 30 06/02/18 20:00 Mechanical Ventilator 06/02/18 19:32 62 06/02/18 19:14 56 12 100 Mechanical Ventilator 30 06/02/18 19:00 56 19 100 Mechanical Ventilator 30 06/02/18 18:58 56 19 30 06/02/18 16:40 58 20 30 06/02/18 16:00 60 06/02/18 16:00 Mechanical Ventilator 06/02/18 16:00 98.1 56 18 130/60 (83) 100 06/02/18 16:00 30 Intake and Output 06/02/18 06/03/18 19:00 07:00 Intake Total 1610 ml 860 ml Output Total 700 ml 850 ml Balance 910 ml 10 ml Intake Free Water 300 ml 200 ml IV Total 400 ml Tube Feeding 660 ml 660 ml Blood Product 250 ml Output Urine Total 700 ml 850 ml Height (Feet): 5 Height (Inches): 7.00 Weight (Pounds): 142 Objective Thin AA man NCAT neck (+) trach CTA RRR soft ND NT, (+) GT no edema OBS Oli Amaya MD Jun 03, 2018 15:43
--- NOTE | 2018-06-03 15:45 | Discharge Summary ---
DATE OF ADMISSION: 05/27/2018 DATE OF DISCHARGE: 06/03/2018 ADMISSION DIAGNOSES: 1. Sepsis. 2. Seizure disorder. 3. Respiratory failure. 4. Pulmonary tuberculosis. 5. Anemia. 6. History of stroke. 7. Toxic metabolic encephalopathy. 8. Functional quadriplegia. DISCHARGE DIAGNOSES: 1. Sepsis. 2. Seizure disorder. 3. Respiratory failure. 4. Pulmonary tuberculosis. 5. Anemia. 6. History of stroke. 7. Toxic metabolic encephalopathy. 8. Functional quadriplegia. HOSPITAL COURSE: The patient is an unfortunate male with history of stroke and chronic respiratory failure. He was admitted with complaints of seizures. He was diagnosed with sepsis secondary to urinary tract infection and pneumonia. He was treated with broad-spectrum IV antibiotics. Initially, he was in the intensive care unit. Seizures stabilized. Pulmonary, Cardiology, Infectious Disease, and Neurology consultations were all obtained. The patient improved. He did require transfusion. This was felt to be likely anemia of chronic disease. There is no signs or evidence of any acute bleeding. On discharge, he was stable. The patient will be [facility] back [facility]. He will complete antibiotic therapy there. Plan of care was discussed with the patient's and she is in agreement. Jarrod Vásquez M.D. DR: CLARA JOB#: [id number] CC:
[2018-06-03 16:00] VITALS: BP 136/68
--- NOTE | 2018-06-03 19:30 | Neurology Progress Note ---
Interim History Interim History Interim History Mr. Narvaez cannot be aroused. He only responds to deep pain with left better than right movements. He continues to be seizure free. As per his nurse there has been no significant change in his neurologic condition. Review of Systems Neuro Review of Systems Unable to obtain. Objective Physical Exam Last Vital Signs Date Time Temp Pulse Resp B/P (MAP) Pulse Ox O2 Delivery O2 Flow Rate FiO2 06/03/18 17:06 59 17 30 06/03/18 16:00 Mechanical Ventilator 06/03/18 16:00 97.2 136/68 (90) 100 05/27/18 07:00 15.0 Neurologic Exam Objective PHYSICAL EXAMINATION: GENERAL: He is a well-developed, ill-looking black gentleman, lying in bed, in no acute distress. HEAD: Normocephalic and atraumatic. EENT: Examination benign. NECK: No neck rigidity was observed. NEUROLOGICAL EXAMINATION: MENTAL STATUS EXAMINATION: He could not be aroused even on deep pain. He only responded to deep pain with left better than right withdrawal.. Further mental status testing was impossible. SPEECH: Could not be tested. LANGUAGE: Could not be tested. CRANIAL NERVE EXAMINATION: II: He did not blink to threat. III, IV & : External ocular movements were present on oculocephalic maneuvers. The pupils were 3 mm in diameter, equal, round, regular, and non- reactive to light. V & VII: The corneal reflexes were present bilaterally. However, the right- sided reflex was diminished compared to the left. VIII: He did not respond to loud sounds and had no nystagmus. IX & X: Gag reflex was suppressed. XI: The sternocleidomastoids and trapezii functioned minimally. XII: The tongue was in the midline. MOTOR SYSTEM: The tone was increased in all four extremities with spasticity more marked on the right than on the left. Examination of muscle mass revealed generalized muscle wasting, again more marked on the right than on the left. He moved all extremities on deep pain - left greater than right. SENSORY EXAMINATION: He responded deep pain in all 4 extremities by wincing. REFLEXES: Trace+ and bilaterally symmetrical at the biceps, triceps, brachioradialis. 0 at both knees and ankles. The plantar responses were extensor bilaterally. COORDINATION, STANCE & GAIT: Could not be tested. Impression/Recommendations Diagnostic Impression 1. Mr. Sagar Narvaez is a 72-year-old, [place] gentleman, of unknown handedness, who does have a past history of cerebrovascular disease with a prior stroke, pulmonary tuberculosis, chronic respiratory failure for which he has tracheostomy, and dysphagia for which he has a gastrostomy; who [facility] where he was noted to have an alteration in his mental state and multiple seizures. 2. He was brought in by the paramedics and has since been hospitalized. He was given a few doses of Ativan and was also given Versed in the ambulance. 3. He cannot be aroused. He only responds to deep pain with left better than right movements. He continues to be seizure free. As per his nurse there has been no significant change in his neurologic condition. 4. On neurological examination, at this time, he cannot be aroused even on deep pain. He does not blink to threat. He does not follow any commands. Further mental status testing is impossible. His corneal reflex is diminished on the right side compared to the left. He moves his extremities on deep pain - left > right. His deep tendon reflexes are globally diminished and his plantar responses are extensor bilaterally. 5. Laboratory data revealed a leukocytosis and findings consistent with a UTI - which have now resolved. 6. 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 His recent breakthrough seizures were most probably due to his acute UTI. 7. He is less responsive today - he could be more encephalopathic. Recommendations 1. Continue present management. 2. Continue Keppra 1000 mg q 12 hours. 3. Observe. Mercedes Coelho M.D., M.S.P.MERCEDES BERMUDEZ Jun 03, 2018 19:30
[2018-06-03 20:00] VITALS: BP 138/65
[2018-06-03] MEDS: Tamsulosin 0.4mg cap ORAL SCH (20:33)
[2018-06-04] VITALS: BP 143/74
[2018-06-04] MEDS: Albuterol/Ipratropium 3ml neb HHN SCH ×5 (03:37→18:57)
[2018-06-04 04:00] VITALS: BP 132/60
[2018-06-04 08:00] VITALS: BP 140/66
--- NOTE | 2018-06-04 08:23 | General Progress Note ---
Assessment/Plan Assessment/Plan Assessment - N/V - resolved - suspected early cirrhosis based on imaging - hepatitis A/B/C negative - TRISTAN negative but F-Actin (+) - ? 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 noted Objective Last 24 Hour Vital Signs Date Time Temp Pulse Resp B/P (MAP) Pulse Ox O2 Delivery O2 Flow Rate FiO2 06/04/18 07:22 55 17 99 Mechanical Ventilator 30 06/04/18 07:20 55 17 30 06/04/18 05:25 80 17 30 06/04/18 04:00 30 06/04/18 04:00 Mechanical Ventilator 06/04/18 04:00 51 06/04/18 04:00 98.0 57 20 132/60 (84) 100 06/04/18 03:38 54 18 100 Mechanical Ventilator 30 06/04/18 03:30 51 17 99 Mechanical Ventilator 30 06/04/18 03:26 51 17 30 06/04/18 01:30 50 18 30 06/04/18 00:00 97.9 60 20 143/74 (97) 100 06/04/18 00:00 Mechanical Ventilator 06/04/18 00:00 30 06/03/18 23:38 56 19 100 Mechanical Ventilator 30 06/03/18 23:30 54 19 30 06/03/18 23:30 54 19 98 Mechanical Ventilator 30 06/03/18 23:27 56 06/03/18 21:24 51 17 30 06/03/18 20:34 60 138/65 06/03/18 20:00 97.5 60 20 138/65 (89) 100 06/03/18 20:00 Mechanical Ventilator 06/03/18 20:00 57 16 100 Mechanical Ventilator 30 06/03/18 20:00 30 06/03/18 20:00 53 06/03/18 19:50 55 16 99 Mechanical Ventilator 30 06/03/18 19:30 55 16 30 06/03/18 17:06 59 17 30 06/03/18 16:00 Mechanical Ventilator 06/03/18 16:00 30 06/03/18 16:00 97.2 55 19 136/68 (90) 100 06/03/18 16:00 56 06/03/18 14:42 59 17 100 Mechanical Ventilator 30 06/03/18 14:41 56 21 30 06/03/18 14:31 60 12 100 Mechanical Ventilator 30 06/03/18 13:00 53 17 30 06/03/18 12:00 Mechanical Ventilator 06/03/18 12:00 54 06/03/18 12:00 97.0 54 19 133/69 (90) 100 06/03/18 12:00 30 06/03/18 11:14 68 16 100 Mechanical Ventilator 30 06/03/18 10:53 62 17 100 Mechanical Ventilator 30 06/03/18 10:53 62 15 30 06/03/18 08:36 57 19 30 Intake and Output 06/03/18 06/04/18 19:00 07:00 Intake Total 1360 ml 895 ml Output Total 1300 ml Balance 60 ml 895 ml Intake Free Water 300 ml 300 ml IV Total 400 ml Tube Feeding 660 ml 495 ml Other 100 ml Output Urine Total 1300 ml Height (Feet): 5 Height (Inches): 7.00 Weight (Pounds): 121 Objective Thin AA man NCAT neck (+) trach CTA RRR soft ND NT, (+) GT no edema OBS Oli Amaya MD Jun 04, 2018 08:23
[2018-06-04] MEDS: Minocycline HCl 50mg cap ORAL SCH (08:54)
[2018-06-04] MEDS: Isoniazid 300mg tab ORAL SCH (08:54)
[2018-06-04] MEDS: Aspirin Baby 81mg ORAL SCH (08:54)
[2018-06-04] MEDS: Multivitamin w/Minerals tab ORAL SCH (08:55)
[2018-06-04] MEDS: Doxazosin 1mg Tab ORAL SCH (08:55)
[2018-06-04] MEDS: Pyridoxine 50mg tab ORAL SCH (08:55)
[2018-06-04] MEDS: Ascorbic Acid 500mg tab ORAL SCH (08:56)
[2018-06-04] MEDS: Metoprolol Tartrate 50mg tab ORAL SCH (08:57)
[2018-06-04] MEDS: levETIRAcetam 1,000mg/NS100ml 100 ML IVPB SCH (09:41)
--- NOTE | 2018-06-04 10:47 | Infectious Diseases Prog Note ---
Assessment/Plan Assessment/Plan antibiotics : isoniazid, rifampin, ethambutol, pyrazinamide, pyridoxine, minocycline A 1. acenitobacter pneumonia 2. pulmonary tuberculosis 3. leucocytosis 4. respiratory failure 5. seizures P 1. continue minocycline 1 more day 2. continue isoniazid, rifampin, ethambutol, pyrazinamide, pyridoxine 3. will follow up cultures Subjective ROS Limited/Unobtainable: Yes Allergies: Coded Allergies: No Known Allergies (Unverified , 01/27/17) Objective Vital Signs Last 24 Hour Vital Signs Date Time Temp Pulse Resp B/P (MAP) Pulse Ox O2 Delivery O2 Flow Rate FiO2 06/04/18 09:06 53 06/04/18 08:58 61 17 30 06/04/18 08:58 58 140/66 06/04/18 08:57 58 140/66 06/04/18 08:00 Mechanical Ventilator 06/04/18 08:00 97.7 58 20 140/66 (90) 100 06/04/18 08:00 30 06/04/18 07:32 56 18 100 Mechanical Ventilator 30 06/04/18 07:22 55 17 99 Mechanical Ventilator 30 06/04/18 07:20 55 17 30 06/04/18 05:25 80 17 30 06/04/18 04:00 30 06/04/18 04:00 Mechanical Ventilator 06/04/18 04:00 51 06/04/18 04:00 98.0 57 20 132/60 (84) 100 06/04/18 03:38 54 18 100 Mechanical Ventilator 30 06/04/18 03:30 51 17 99 Mechanical Ventilator 30 06/04/18 03:26 51 17 30 06/04/18 01:30 50 18 30 06/04/18 00:00 97.9 60 20 143/74 (97) 100 06/04/18 00:00 Mechanical Ventilator 06/04/18 00:00 30 06/03/18 23:38 56 19 100 Mechanical Ventilator 30 06/03/18 23:30 54 19 30 06/03/18 23:30 54 19 98 Mechanical Ventilator 30 06/03/18 23:27 56 06/03/18 21:24 51 17 30 06/03/18 20:34 60 138/65 06/03/18 20:00 97.5 60 20 138/65 (89) 100 06/03/18 20:00 Mechanical Ventilator 06/03/18 20:00 57 16 100 Mechanical Ventilator 30 06/03/18 20:00 30 06/03/18 20:00 53 06/03/18 19:50 55 16 99 Mechanical Ventilator 30 06/03/18 19:30 55 16 30 06/03/18 17:06 59 17 30 06/03/18 16:00 Mechanical Ventilator 06/03/18 16:00 30 06/03/18 16:00 97.2 55 19 136/68 (90) 100 06/03/18 16:00 56 06/03/18 14:42 59 17 100 Mechanical Ventilator 30 06/03/18 14:41 56 21 30 06/03/18 14:31 60 12 100 Mechanical Ventilator 30 06/03/18 13:00 53 17 30 06/03/18 12:00 Mechanical Ventilator 06/03/18 12:00 54 06/03/18 12:00 97.0 54 19 133/69 (90) 100 06/03/18 12:00 30 06/03/18 11:14 68 16 100 Mechanical Ventilator 30 06/03/18 10:53 62 17 100 Mechanical Ventilator 30 06/03/18 10:53 62 15 30 Height (Feet): 5 Height (Inches): 7.00 Weight (Pounds): 121 HEENT: status post trach Respiratory/Chest: lungs clear Cardiovascular: normal rate, regular rhythm, no gallop/murmur Abdomen: soft, non tender, other - GT Extremities: no edema Current Medications Medications (Trade) Dose Ordered Sig/Iram Route PRN Reason Start Time Stop Time Status Last Admin Dose Admin Acetaminophen (Tylenol) 650 mg Q4H PRN ORAL Fever/Headache/Mild Pain 05/31/18 13:15 06/26/18 13:14 Albuterol/ Ipratropium (Albuterol/ Ipratropium) 3 ml Q4HRT HHN 06/01/18 11:00 06/06/18 10:59 06/04/18 07:22 Amlodipine Besylate (Norvasc) 10 mg DAILY ORAL 06/01/18 09:00 06/26/18 08:59 06/04/18 08:58 Artificial Tears (Akwa-Tears) 2 drop FIVE TIMES A DAY PRN BOTH EYES Dry Eyes 05/31/18 13:00 06/26/18 06:14 Ascorbic Acid (Vitamin C) 250 mg DAILY ORAL 06/01/18 09:00 06/26/18 08:59 06/04/18 08:56 Aspirin (ASA) 81 mg DAILY ORAL 06/01/18 09:00 06/26/18 08:59 06/04/18 08:54 Atorvastatin Calcium (Lipitor) 10 mg BEDTIME ORAL 05/31/18 21:00 06/26/18 20:59 06/03/18 20:33 Bisacodyl (Dulcolax) 10 mg PRN PRN RECTAL DAILY 05/31/18 13:15 06/30/18 13:14 Doxazosin Mesylate (Cardura) 1 mg DAILY ORAL 06/01/18 09:00 06/26/18 08:59 06/04/18 08:55 Ethambutol HCl (Myambutol) 800 mg DAILY ORAL 06/01/18 09:00 06/26/18 12:29 06/04/18 08:57 Famotidine (Pepcid) 20 mg DAILY ORAL 06/01/18 09:00 06/26/18 08:59 06/04/18 08:54 Isoniazid (Inh) 300 mg DAILY ORAL 06/01/18 09:00 06/26/18 08:59 06/04/18 08:54 Levetiracetam 100 ml @ 400 mls/hr Q12HR IVPB 05/31/18 21:00 06/26/18 09:29 06/04/18 09:41 Lorazepam (Ativan 2mg/ml 1ml) 2 mg Q1H PRN IV For Seizures 06/03/18 12:00 06/10/18 11:59 Metoprolol Tartrate (Lopressor) 50 mg Q12HR ORAL 05/31/18 21:00 06/26/18 08:59 06/04/18 08:57 Midodrine (Pro-Amatine) 2.5 mg THREE TIMES A DAY ORAL 05/31/18 13:00 06/26/18 08:59 06/04/18 08:53 Minocycline HCl (Minocin) 100 mg Q12HR ORAL 05/31/18 21:00 06/05/18 22:00 06/04/18 08:54 Multivitamins Therapeutic (Therapeutic Multivitamin) 1 ea DAILY ORAL 06/01/18 09:00 06/26/18 08:59 06/04/18 08:55 Pyrazinamide (Pza) 1,000 mg DAILY ORAL 06/01/18 09:00 06/26/18 08:59 06/04/18 08:53 Pyridoxine HCl (Vitamin B6) 50 mg DAILY ORAL 06/01/18 09:00 06/26/18 08:59 06/04/18 08:55 Rifampin (Rifadin) 600 mg DAILY ORAL 06/01/18 09:00 06/26/18 08:59 06/04/18 09:00 Sennosides (Senokot) 1 tab Q12H PRN ORAL Constipation 05/31/18 13:15 06/30/18 13:14 Sennosides (Senokot) 2 tab Q12H PRN ORAL Constipation 05/31/18 13:15 06/30/18 13:14 Sodium Phosphate (Fleet's Sodium Phosl Enema) 133 ml PRN PRN RECTAL Q 2 DAYS 05/31/18 13:15 06/30/18 13:14 Tamsulosin HCl (Flomax) 0.4 mg BEDTIME ORAL 05/31/18 21:00 06/26/18 20:59 06/03/18 20:33 Sergio Urban MD Jun 04, 2018 10:47
[2018-06-04 12:09] VITALS: BP 123/68
--- NOTE | 2018-06-04 15:15 | General Progress Note ---
Assessment/Plan Problem List: (1) Toxic metabolic encephalopathy ICD Codes: G92 - Toxic encephalopathy SNOMED: 714666607 (2) HTN (hypertension) ICD Codes: I10 - Essential (primary) hypertension SNOMED: 33139311 (3) Aspiration pneumonia ICD Codes: J69.0 - Pneumonitis due to inhalation of food and vomit SNOMED: 503892260 (4) Sepsis ICD Codes: A41.9 - Sepsis, unspecified organism SNOMED: 68205515 (5) Status epilepticus ICD Codes: G40.901 - Epilepsy, unspecified, not intractable, with status epilepticus SNOMED: 489309570 (6) UTI (urinary tract infection), bacterial ICD Codes: N39.0 - Urinary tract infection, site not specified; A49.9 - Bacterial infection, unspecified SNOMED: 341283871 Status: stable, progressing Assessment/Plan tube feeds monitor residuals sz rx iv abx follow up cultures monitor cxr vent support resp rx dc planning Subjective ROS Limited/Unobtainable: Yes Constitutional: Reports: malaise, weakness HEENT: Reports: no symptoms Cardiovascular: Reports: no symptoms Respiratory: Reports: no symptoms Gastrointestinal/Abdominal: Reports: no symptoms Genitourinary: Reports: no symptoms Neurologic/Psychiatric: Reports: no symptoms Endocrine: Reports: no symptoms Allergies: Coded Allergies: No Known Allergies (Unverified , 01/27/17) All Systems: reviewed and negative except above Subjective no events. w/o complaints. no fever or chills. no bleeding. awaiting dept of health clearance for dc Objective Last 24 Hour Vital Signs Date Time Temp Pulse Resp B/P (MAP) Pulse Ox O2 Delivery O2 Flow Rate FiO2 06/04/18 13:03 66 24 30 06/04/18 12:09 Mechanical Ventilator 06/04/18 12:09 97.3 57 20 123/68 (86) 91 06/04/18 12:00 30 06/04/18 12:00 59 06/04/18 11:27 78 17 100 Mechanical Ventilator 06/04/18 11:17 68 17 99 Mechanical Ventilator 30 06/04/18 11:15 59 17 30 06/04/18 09:06 53 06/04/18 08:58 61 17 30 06/04/18 08:58 58 140/66 06/04/18 08:57 58 140/66 06/04/18 08:00 Mechanical Ventilator 06/04/18 08:00 97.7 58 20 140/66 (90) 100 06/04/18 08:00 30 06/04/18 07:32 56 18 100 Mechanical Ventilator 30 06/04/18 07:22 55 17 99 Mechanical Ventilator 30 06/04/18 07:20 55 17 30 06/04/18 05:25 80 17 30 06/04/18 04:00 30 06/04/18 04:00 Mechanical Ventilator 06/04/18 04:00 51 06/04/18 04:00 98.0 57 20 132/60 (84) 100 06/04/18 03:38 54 18 100 Mechanical Ventilator 30 06/04/18 03:30 51 17 99 Mechanical Ventilator 30 06/04/18 03:26 51 17 30 06/04/18 01:30 50 18 30 06/04/18 00:00 97.9 60 20 143/74 (97) 100 06/04/18 00:00 Mechanical Ventilator 06/04/18 00:00 30 06/03/18 23:38 56 19 100 Mechanical Ventilator 30 06/03/18 23:30 54 19 30 06/03/18 23:30 54 19 98 Mechanical Ventilator 30 06/03/18 23:27 56 06/03/18 21:24 51 17 30 06/03/18 20:34 60 138/65 06/03/18 20:00 97.5 60 20 138/65 (89) 100 06/03/18 20:00 Mechanical Ventilator 06/03/18 20:00 57 16 100 Mechanical Ventilator 30 06/03/18 20:00 30 06/03/18 20:00 53 06/03/18 19:50 55 16 99 Mechanical Ventilator 30 06/03/18 19:30 55 16 30 06/03/18 17:06 59 17 30 06/03/18 16:00 Mechanical Ventilator 06/03/18 16:00 30 06/03/18 16:00 97.2 55 19 136/68 (90) 100 06/03/18 16:00 56 Intake and Output 06/03/18 06/04/18 19:00 07:00 Intake Total 1360 ml 895 ml Output Total 1300 ml Balance 60 ml 895 ml Intake Free Water 300 ml 300 ml IV Total 400 ml Tube Feeding 660 ml 495 ml Other 100 ml Output Urine Total 1300 ml Height (Feet): 5 Height (Inches): 7.00 Weight (Pounds): 121 Objective General Appearance: WD/WN, lethargic, confused Neck: supple Cardiovascular: normal rate, regular rhythm Respiratory/Chest: rhonchi - bilaterally Abdomen: normal bowel sounds, non tender, soft, no organomegaly Edema: no edema noted Arm (L), no edema noted Arm (R), no edema noted Leg (L), no edema noted Leg (R), no edema noted Pedal (L), no edema noted Pedal (R), no edema noted Generalized Jarrod Vásquez MD Jun 04, 2018 15:15
[2018-06-04 16:00] VITALS: BP 117/60
[2018-06-04 16:40] LABS: HEMATOCRIT 27.8 % (42.0-52.0); MEAN CORPUSCULAR VOLUME 80 FL (80-99); PLATELET COUNT 142 K/UL (150-450); RED BLOOD COUNT 3.48 M/UL (4.70-6.10); RED CELL DISTRIBUTION WIDTH 16.1 % (11.6-14.8); WHITE BLOOD COUNT 3.4 K/UL (4.8-10.8)
[2018-06-04 16:51] LABS: HEMOGLOBIN 9.5 G/DL (14.2-18.0)
--- NOTE | 2018-06-04 17:44 | Neurology Progress Note ---
Interim History Interim History Interim History Mr. Narvaez can be aroused today. He makes eye contact when aroused. He responds to deep pain with left better than right movements. He continues to be seizure free. As per his nurse there has been no significant change in his neurologic condition. Review of Systems Neuro Review of Systems Unable to obtain. Objective Physical Exam Last Vital Signs Date Time Temp Pulse Resp B/P (MAP) Pulse Ox O2 Delivery O2 Flow Rate FiO2 06/04/18 17:23 59 17 30 06/04/18 16:00 Mechanical Ventilator 06/04/18 16:00 97.0 117/60 (79) 99 05/27/18 07:00 15.0 Laboratory Tests Test 06/04/18 16:05 White Blood Count 3.4 K/UL (4.8-10.8) L Red Blood Count 3.48 M/UL (4.70-6.10) L Hemoglobin 9.5 G/DL (14.2-18.0) L Hematocrit 27.8 % (42.0-52.0) L Mean Corpuscular Volume 80 FL (80-99) Mean Corpuscular Hemoglobin 27.2 PG (27.0-31.0) Mean Corpuscular Hemoglobin Concent 34.0 G/DL (32.0-36.0) Red Cell Distribution Width 16.1 % (11.6-14.8) H Platelet Count 142 K/UL (150-450) L Mean Platelet Volume 6.0 FL (6.5-10.1) L Neutrophils (%) (Auto) % (45.0-75.0) Lymphocytes (%) (Auto) % (20.0-45.0) Monocytes (%) (Auto) % (1.0-10.0) Eosinophils (%) (Auto) % (0.0-3.0) Basophils (%) (Auto) % (0.0-2.0) Neutrophils % (Manual) Pending Lymphocytes % (Manual) Pending Platelet Estimate Pending Platelet Morphology Pending Neurologic Exam Objective PHYSICAL EXAMINATION: GENERAL: He is a well-developed, ill-looking black gentleman, lying in bed, in no acute distress. HEAD: Normocephalic and atraumatic. EENT: Examination benign. NECK: No neck rigidity was observed. NEUROLOGICAL EXAMINATION: MENTAL STATUS EXAMINATION: He could be aroused with vocal stimulation. He made brief eye contact. He responded to deep pain with left better than right withdrawal. Further mental status testing was impossible. SPEECH: Could not be tested. LANGUAGE: Could not be tested. CRANIAL NERVE EXAMINATION: II: He did blink to threat. III, IV & : External ocular movements were present on oculocephalic maneuvers. The pupils were 3 mm in diameter, equal, round, regular, and non- reactive to light. V & VII: The corneal reflexes were present bilaterally. However, the right- sided reflex was diminished compared to the left. VIII: He did not respond to loud sounds and had no nystagmus. IX & X: Gag reflex was suppressed. XI: The sternocleidomastoids and trapezii functioned minimally. XII: The tongue was in the midline. MOTOR SYSTEM: The tone was increased in all four extremities with spasticity more marked on the right than on the left. Examination of muscle mass revealed generalized muscle wasting, again more marked on the right than on the left. He moved all extremities on deep pain - left greater than right. SENSORY EXAMINATION: He responded deep pain in all 4 extremities by wincing. REFLEXES: Trace+ and bilaterally symmetrical at the biceps, triceps, brachioradialis. 0 at both knees and ankles. The plantar responses were extensor bilaterally. COORDINATION, STANCE & GAIT: Could not be tested. Impression/Recommendations Diagnostic Impression 1. Mr. Sagar Narvaez is a 72-year-old, [place] gentleman, of unknown handedness, who does have a past history of cerebrovascular disease with a prior stroke, pulmonary tuberculosis, chronic respiratory failure for which he has tracheostomy, and dysphagia for which he has a gastrostomy; who [facility] where he was noted to have an alteration in his mental state and multiple seizures. 2. He was brought in by the paramedics and has since been hospitalized. He was given a few doses of Ativan and was also given Versed in the ambulance. 3. He can be aroused today. He makes eye contact when aroused. He responds to deep pain with left better than right movements. He continues to be seizure free. As per his nurse there has been no significant change in his neurologic condition. 4. On neurological examination, at this time, he can be aroused on vocal stimulation. He does blink to threat. He does not follow any commands. Further mental status testing is impossible. His corneal reflex is diminished on the right side compared to the left. He moves his extremities on deep pain - left > right. His deep tendon reflexes are globally diminished and his plantar responses are extensor bilaterally. 5. Laboratory data revealed a leukocytosis and findings consistent with a UTI - which have now resolved. 6. 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 His recent breakthrough seizures were most probably due to his acute UTI. 7. He is more responsive today - he is less encephalopathic. Recommendations 1. Continue present management. 2. Continue Keppra 1000 mg q 12 hours. 3. Observe. Mercedes Coelho M.D., M.S.P.MERCEDES BERMUDEZ Jun 04, 2018 17:44
[2018-06-04] MEDS ORDERED: NS 275ml ONE (19:56)
--- NOTE | 2018-06-05 | Progress Note ---
DATE: 05/30/2018 CARDIOLOGY PROGRESS NOTE Late entry for May 30, 2018. SUBJECTIVE: The patient with stable vital signs. Tachycardia recovered. Less secretions. Remains afebrile. OBJECTIVE: VITAL SIGNS: Blood pressure 139/59, pulse 65, and respiratory rate 20. LUNGS: Few rhonchi. CARDIAC: Regular rhythm and rate. Normal S1 and S2. ABDOMEN: Soft. EXTREMITIES: No edema. LABORATORY DATA: Labs reviewed. IMPRESSION: 1. Transaminitis. 2. Respiratory failure with trach. 3. Healthcare-acquired pneumonia, resolved. 4. Secondary sinus tachycardia. 5. Chronic diastolic congestive heart failure. PLAN: 1. Holding statin drug. 2. Maintaining anti-platelet therapy with aspirin. 3. Monitor LFTs. 4. Monitor volume status and cardiorenal parameters. 5. Reassess for diuresis based on clinical findings. 6. Continue ventilator support. Jones Arauz M.D. DR: MARCIAL JOB#: [id number] CC:
--- NOTE | 2018-06-05 | Progress Note ---
DATE: 06/01/2018 CARDIOLOGY PROGRESS NOTE Late entry for June 01, 2018 SUBJECTIVE: The patient's condition is slowly recovering. The patient's hemoglobin has dropped and a packed red blood cell transfusion is planned. PHYSICAL EXAMINATION: VITAL SIGNS: Blood pressure 140/66, pulse 64, respiratory rate 24, and afebrile. HEENT: Thin trach secretions. LUNGS: Few rhonchi. HEART: Regular rhythm and rate. Normal S1 and S2. ABDOMEN: Soft. G-tube intact. EXTREMITIES: Trace edema. IMPRESSION: 1. Healthcare-acquired pneumonia. 2. Respiratory failure. 3. Tracheostomy. 4. Severe sepsis. 5. Secondary sinus tachycardia, resolved. 6. Chronic diastolic congestive heart failure. 7. Anemia of chronic disease and chronic kidney disease. 8. Pulmonary tuberculosis. 9. Elevated liver function studies with statin drugs ____ being held. PLAN: 1. Antibiotics. 2. Ventilator support. 3. No current indication for diuresis. 4. Maintain anti-platelet therapy. 5. Reassess for resumption of statin drug based on liver function parameters. 6. DVT prophylaxis. Jones Arauz M.D. DR: MAURIZIO JOB#: [id number] CC:
--- NOTE | 2018-06-05 00:15 | Progress Note ---
DATE: 05/29/2018 CARDIOLOGY PROGRESS NOTE SUBJECTIVE: Status without significant change. Remaining on ventilator support via trach. OBJECTIVE: VITAL SIGNS: Blood pressure 145/60, pulse 77, respiratory rate 16. LUNGS: Coarse breath sounds. secretions. HEART: Regular rhythm and rate. Normal S1, S2. ABDOMEN: Soft. EXTREMITIES: Trace edema. SKIN: G-tube intact. IMPRESSION: 1. Healthcare-acquired pneumonia. 2. Chronic diastolic congestive heart failure. 3. Paroxysmal atrial ectopy with secondary sinus tachycardia, improving. 4. Severe sepsis. 5. Ventilator-dependent respiratory failure. 6. Hypoxia. PLAN: 1. Antimicrobials. 2. No diuresis indicated. 3. Ventilator support. 4. DVT prophylaxis. 5. Hold parameters for antihypertensives. 6. Maintain anti-platelet therapy and statin. Jones Arauz M.D. DR: Shabbir JOB#: [id number] CC:
--- NOTE | 2018-06-05 00:15 | Progress Note ---
DATE: 06/02/2018 CARDIOLOGY PROGRESS NOTE Late entry for June 02, 2018. SUBJECTIVE: The patient has some secretions, no apparent distress. OBJECTIVE: VITAL SIGNS: Blood pressure 135/62, heart rate 64, respiratory rate 18, and afebrile. HEENT: Thin trach secretions. LUNGS: Coarse breath sounds. Scattered rhonchi. HEART: Regular rhythm and rate. Normal S1 and S2. ABDOMEN: Soft. G-tube intact. EXTREMITIES: No edema. LABORATORY DATA: Reviewed. IMPRESSION: 1. Severe sepsis. 2. Healthcare-acquired pneumonia. 3. Secondary sinus tachycardia, recovered. 4. Lactic acidosis, resolved. 5. Toxic encephalopathy, recovered. 6. Hypertensive heart disease, stable. 7. Ventilator-dependent respiratory failure. 8. Pulmonary tuberculosis, on triple therapy. 9. Transaminitis, multifactorial, now off statin drug. PLAN: 1. Plan of care reviewed. 2. Complete antibiotics. 3. Continue vent. 4. Monitor volume status and cardiorenal parameters. 5. Maintain antihypertensives. 6. DVT and stress ulcer prophylaxis. 7. [facility] facility for long-term care. Jones Arauz M.D. DR: MAURIZIO JOB#: [id number] CC:
--- NOTE | 2018-06-05 00:15 | Progress Note ---
DATE: 06/03/2018 CARDIOLOGY PROGRESS NOTE Late entry for 06/03/2018. SUBJECTIVE: Condition continues to improve. The patient's vital signs are stable. His heart rate in the 60s. No clinical signs of acute congestive heart failure. OBJECTIVE: Exam without change. He is status post packed red blood cell transfusion. PLAN: We would continue current course of therapy. No additional cardiovascular interventions planned. Reassess resumption of statin drug in the future based on liver function studies. Jones Arauz M.D. DR: ERICA JOB#: [id number] CC:
--- NOTE | 2018-06-05 00:15 | Progress Note ---
DATE: 05/31/2018 CARDIOLOGY PROGRESS NOTE: SUBJECTIVE: The patient seen and evaluated. Case discussed with Dr. Vásquez. The patient is tolerating tube feedings. He is off statin drugs due to elevated LFTs. OBJECTIVE: VITAL SIGNS: He is afebrile. Vital signs are stable. Monitored rhythm sinus with no recurrent sinus tachycardic episodes. No new seizures. HEENT: Thin trach secretions. LUNGS: Few rhonchi. CARDIAC: Regular rhythm and rate. Normal S1, S2. ABDOMEN: Soft. Trace edema. G-tube intact. IMPRESSION: Improving clinical parameters. Stable from cardiovascular standpoint. No need for diuresis. We will adjust statin therapy once liver function parameters normalize. Jones Arauz M.D. DR: RAUL JOB#: [id number] CC:
--- NOTE | 2018-06-05 00:45 | Consultation ---
DATE OF CONSULTATION: 06/04/2018 CARDIOLOGY CONSULT CONSULTING PHYSICIAN: Jones Arauz M.D. REFERRING PHYSICIAN: Jarrod Vásquez M.D. HISTORY OF PRESENT ILLNESS: This 72-year-old male with tracheostomy and chronic respiratory failure. He was transferred to the hospital due to seizures. He also had fevers to 102 degrees, an abnormal chest radiograph and urinalysis were noted, and an elevated natriuretic peptide assay prompting this consultation. The patient had an echocardiogram in the last month. During his recent hospitalization, ejection fraction was normal. There is mild concentric hypertrophy and a diastolic relaxation abnormality, but no significant valvular disease. There is a history of atrial ectopy, but no sustained atrial or ventricular arrhythmias. PAST MEDICAL HISTORY: 1. Cerebrovascular disease. 2. History of cerebrovascular accident. 3. Ventilator-dependent respiratory failure. 4. Pulmonary tuberculosis. 5. Chronic kidney disease. 6. Diastolic dysfunction with history of congestive heart failure. 7. Anemia of chronic disease and chronic kidney disease. 8. Seizure disorder. 9. Dysphagia with G-tube. 10. Prostatic hypertrophy. SOCIAL HISTORY: No record of smoking or alcohol use. MEDICATIONS: Reviewed and reconciled. ALLERGIES: None known. REVIEW OF SYSTEMS: Otherwise not obtainable. PHYSICAL EXAMINATION: VITAL SIGNS: Blood pressure 153/74, pulse 105, respirations 18, and temperature 102.9 degrees. GENERAL: Ill appearing. LUNGS: Thin trach secretions. Bilateral rhonchi. HEART: Regular rhythm and rate. Normal S1 and S2 with no new murmur. ABDOMEN: Soft and nontender. G-tube intact. EXTREMITIES: No edema. He moves all extremities. LABORATORY AND IMAGING DATA: Pro-natriuretic peptide over 600. ABG, pH 7.33, pCO2 57, and pO2 101. Lactic acid 2.4. Urinalysis with 40 to 60 white cells. White count 12 and hemoglobin 11. Chest x-ray with new left infiltrate. IMPRESSION: 1. Seizure disorder, possible new cerebrovascular accident. 2. Sepsis. 3. Healthcare-acquired pneumonia. 4. History of pulmonary tuberculosis, on therapy. 5. Urinary tract infection. 6. Chronic diastolic congestive heart failure. 7. Hypertensive heart disease. 8. Anemia, multifactorial. 9. Atherosclerotic cardiovascular disease with stable angina. PLAN: 1. No role for diuresis presently. 2. Continue antimicrobials with ventilator support and respiratory hygiene. 3. DVT and stress ulcer prophylaxis. Continue antituberculosis therapy per Infectious Disease technical assistance consultant. 4. Titrate amlodipine for blood pressure control. 5. Hold parameters in place for low-grade blood pressure readings in this clinical setting. 6. Continue antiplatelet therapy and statin drug without change. 7. Titrate and maintain beta-blockade. Jones Arauz M.D. DR: WILD JOB#: [id number] CC:
--- NOTE | 2018-06-05 01:00 | Progress Note ---
DATE: 06/04/2018 CARDIOLOGY PROGRESS NOTE SUBJECTIVE: Condition has improved to baseline. Discharge planning noted. Discharge medication regimen reviewed. OBJECTIVE: VITAL SIGNS: Stable. Blood pressure 132/58, pulse 57, respiratory rate 20, and afebrile. Monitored rhythm is sinus. No clinical signs of acute congestive heart failure. Pulmonary infection has stabilized. He continues therapy for pulmonary tuberculosis. He remains off statin drug due to elevated liver function studies. No need for diuresis at this time. We will discuss with primary care physician regarding discharge management at subacute facility and medications. Jones Arauz M.D. DR: MARCIAL JOB#: [id number] CC:
--- NOTE | 2018-06-05 01:00 | Progress Note ---
DATE: 05/28/2018 CARDIOLOGY PROGRESS NOTE Late entry for 05/28/2018. SUBJECTIVE: The patient is on ventilator support, IV antibiotics. Monitored rhythm, sinus tachycardia, atrial ectopy. OBJECTIVE: VITAL SIGNS: Blood pressure 135/63, pulse 121, and respirations 25. LUNGS: Coarse breath sounds with rhonchi. Thick trach secretions. CARDIAC: Regular rhythm and rapid rate. Normal S1 and S2. ABDOMEN: Soft with G-tube. EXTREMITIES: No edema. LABORATORY AND DIAGNOSTIC DATA: Chest x-ray yesterday revealed left basilar infiltrate. Lactic acid is now 1.2. Sodium 147, potassium 4.1, bicarbonate 25, BUN 37, and creatinine 0.8. Albumin 1.9. IMPRESSION: 1. Respiratory failure. 2. Healthcare-acquired pneumonia. 3. Hypernatremia. 4. Dehydration. 5. . 6. Lactic acidosis, resolved. 7. Chronic diastolic congestive heart failure. 8. Severe protein-calorie malnutrition. 9. Paroxysmal atrial ectopy. PLAN OF CARE: 1. Antimicrobials. 2. No diuresis. 3. Taper off IV fluids. 4. Free water replacement. 5. DVT and stress ulcer prophylaxes. 6. Continue antituberculosis regimen. 7. Maintain beta-blockade. Jones Arauz M.D. DR: SUDHAKAR JOB#: [id number] CC:
--- NOTE | 2018-06-05 09:20 | Discharge Summary ---
Discharge Summary Discharge Summary _ Addendum: Patient was discharged to [facility] on 2017 after DC clearance from [facility] [place]. -I have been assigned to complete a DC Summary on this account. I was not involved with the patient management. --RADHA Delgadillo.-- Luz Maria Lombardo NP Jun 05, 2018 09:19
== END 2018-06-04 19:57 | DRG 720 ==
LOC: EDBD 03:36 → EMR 03:51 → ICU 04:23 → EDBEDREQ 06:53 → 2W 05-31 12:30
PROC: 5A1955Z Respiratory Ventilation, Greater than 96 Consecutive Hours (ICD-10-PCS; principal; 2018-05-27)
DX: A41.9 Sepsis, unspecified organism (principal); G92 Toxic encephalopathy; Z99.11 Dependence on respirator [ventilator] status; J15.8 Pneumonia due to other specified bacteria; L89.159 Pressure ulcer of sacral region, unspecified stage; E46 Unspecified protein-calorie malnutrition; Z93.0 Tracheostomy status; I13.0 Hypertensive heart and chronic kidney disease with heart failure and stage 1 through stage 4 chronic kidney disease, or unspecified chronic kidney disease; I50.32 Chronic diastolic (congestive) heart failure; R65.20 Severe sepsis without septic shock; G40.901 Epilepsy, unspecified, not intractable, with status epilepticus; N39.0 Urinary tract infection, site not specified; Z86.73 Personal history of transient ischemic attack (TIA), and cerebral infarction without residual deficits; A15.0 Tuberculosis of lung; N18.9 Chronic kidney disease, unspecified; Z93.1 Gastrostomy status; D63.1 Anemia in chronic kidney disease; Z68.1 Body mass index [BMI] 19.9 or less, adult; R13.10 Dysphagia, unspecified; R11.2 Nausea with vomiting, unspecified; N40.0 Benign prostatic hyperplasia without lower urinary tract symptoms; I25.118 Atherosclerotic heart disease of native coronary artery with other forms of angina pectoris; R94.5 Abnormal results of liver function studies; R74.0 Nonspecific elevation of levels of transaminase and lactic acid dehydrogenase [LDH]; E87.6 Hypokalemia; E83.42 Hypomagnesemia; E87.1 Hypo-osmolality and hyponatremia; R53.2 Functional quadriplegia
CPT/HCPCS: 36415; 36600; 51702; 71045; 74018; 80053; 81003; 82550; 82553; 82803; 83605; 83735; 83880; 84100; 84484; 85007; 85025; 85610; 85730; 86850; 86900; 86901; 86920; 87040; 87070; 87081; 87086; 87116; 87181; 87205; 93005; 94002; 94003; 94640; 94664; 96361; 96365; 96366; 96368; 96375; 99291; J7620

== ENCOUNTER 2018-06-20 09:08 | Inpatient (IN) | payer MEDICARE, OTHER ==
[~2018-06-20] VITALS: Ht 172.7 cm; Wt 59.9 kg
[~2018-06-20 09:08] MED LIST changes: +ACETAMINOPHEN325 M1 GT; +AMLODIPINE BESY10 MG GT; -AMLODIPINE BESY10 MG ORAL; +ASPIRIN81 MG GT; -ASPIRIN81 MG ORAL; +ATORVASTATIN CA40 MG GT; -ATORVASTATIN CA40 MG ORAL; +CARDURA1 MG GT; -CARDURA1 MG ORAL; +COLACE100 MG GT; -COLACE100 MG ORAL; +FAMOTIDINE20 MG GT; -FAMOTIDINE20 MG ORAL; +MINOCYCLINE HCL ORAL; +MULTIVITAMINS1 EAC8 GT; -MULTIVITAMINS1 EAC8 ORAL; +PRO-AMATINE2.5 MG GT; -PRO-AMATINE2.5 MG ORAL; +SENOKOT8.6 MG GT; -SENOKOT8.6 MG PO; +TAMSULOSIN HCL0.4 MG GT; -TAMSULOSIN HCL0.4 MG ORAL
[2018-06-20] MEDS ORDERED: Cefepime HCl 1 GM in NS 55 ML IV SCH (09:45)
[2018-06-20 09:52] LABS: HEMATOCRIT 28.7 % (42.0-52.0); HEMOGLOBIN 9.6 G/DL (14.2-18.0); MEAN CORPUSCULAR VOLUME 79 FL (80-99); PLATELET COUNT 253 K/UL (150-450); RED BLOOD COUNT 3.64 M/UL (4.70-6.10); WHITE BLOOD COUNT 14.2 K/UL (4.8-10.8)
[2018-06-20 09:59] LABS: ANION GAP 7 mmol/L (5-15); BLOOD UREA NITROGEN 27 mg/dL (7-18); CALCIUM 8.7 MG/DL (8.5-10.1); CARBON DIOXIDE 29 MMOL/L (21-32); CHLORIDE 101 MMOL/L (98-107); CREATININE 0.7 MG/DL (0.55-1.30); POTASSIUM 3.3 MMOL/L (3.5-5.1); SODIUM 137 MMOL/L (136-145)
--- NOTE | 2018-06-20 10:08 | Diagnostic Imaging Report ---
Indication: Shortness of breath Technique: One view of the chest Comparison: 05/27/2018 Findings: Interim development of fairly extensive infiltrates involving much of the right mid and lower lung. There is equivocal patchy peripheral infiltrates in the left lung, although this may be artifactual due to patient rotation and overlying soft tissue opacities. The pleural spaces are slightly blunted, small amount of pleural fluid likely. Tracheostomy, gastrostomy, cholecystectomy clips are again noted Impression: Fairly extensive infiltrates, likely pneumonia, involving the right mid and lower lung. Equivocal faint infiltrates in the left lung periphery Suspect trace bilateral pleural effusions Other stable findings as described
[2018-06-20 10:12] LABS: ALANINE AMINOTRANSFERASE < 6 U/L (12-78); ALBUMIN 1.6 G/DL (3.4-5.0); ALBUMIN/GLOBULIN RATIO 0.3 (1.0-2.7); ALKALINE PHOSPHATASE 331 U/L (46-116); ASPARTATE AMINO TRANSFERASE 30 U/L (15-37); CKMB < 0.5 NG/ML (0.0-3.6); CREATINE KINASE 20 U/L (26-308)
[2018-06-20 10:16] VITALS: BP 96/48
[2018-06-20] MEDS ORDERED: LANSOPRAZOLE30 M2 GT (10:39)
[2018-06-20] MEDS ORDERED: INH300 MG GT (10:39)
[2018-06-20] MEDS ORDERED: KEPPRA500 MG GT (10:39)
[2018-06-20 11:03] VITALS: BP 100/48
--- NOTE | 2018-06-20 11:54 | Emergency Room Report ---
History of Present Illness General Chief Complaint: Altered Level of Consciousness Source: Medical Record, EMS Present Illness HPI This patient presents from a [place] [facility] facility. He has a history of CVA and is tracheostomy/ventilator dependent. He also has a PEG tube. There is concern for him being more altered than usual and also he was found to have a fever at the [place] [facility] facility. There is no other history available. Allergies: Coded Allergies: No Known Allergies (Unverified , 01/27/17) Patient History Past Medical History: see triage record, HTN, ID, CAD, CVA/TIA, dementia, seizures, renal disease Social History: Denies: smoking, alcohol use, drug use Reviewed Nursing Documentation: PMH: Agreed; PSxH: Agreed Nursing Documentation-PMH Past Medical History: No History, Except For Hx Cardiac Problems: No - tachycardia. Hyperlipidemia. anemia Hx Hypertension: Yes Hx Cancer: No Hx Gastrointestinal Problems: Yes - Dysphagia. GERD. Hx Neurological Problems: Yes - syphilis, encephalopathy Hx Cerebrovascular Accident: Yes Hx Transient Ischemic Attacks: Yes Hx Dementia: Yes Hx Seizures: Yes Hx Syncope: Yes Review of Systems All Other Systems: limited Physical Exam Vital Signs Date Time Temp Pulse Resp B/P (MAP) Pulse Ox O2 Delivery O2 Flow Rate FiO2 06/20/18 09:08 100.6 90 20 101/51 100 Mechanical Ventilator 06/20/18 09:22 40 Sp02 EP Interpretation: reviewed, normal General Appearance: no apparent distress, alert, GCS 15, non-toxic Head: normocephalic, atraumatic Eyes: bilateral eye normal inspection, bilateral eye PERRL ENT: hearing grossly normal, no angioedema, other - Trach/vent Neck: normal inspection, full range of motion, supple/symm/no masses Respiratory: no respiratory distress, no retraction, no accessory muscle use, rhonchi Cardiovascular #1: regular rate, rhythm, no edema Gastrointestinal: normal bowel sounds, non tender, soft, non-distended, no guarding, no rebound, other - PEG tube in place Rectal: deferred Musculoskeletal: back normal, other - At baseline Neurologic: alert, responsive, other - At baseline Psychiatric: mood/affect normal, no suicidal/homicidal ideation Skin: warm/dry, well hydrated, other - See RN skin exam Medical Decision Making Diagnostic Impression: Primary Impression: Pneumonia ER Course This patient is found to have pneumonia. He was given broad-spectrum antibiotics. He also has an elevated white blood cell count and fever. He meets criteria for sepsis. He was given aggressive IV fluid resuscitation. The patient had a normal blood pressure and heart rate. He was admitted to the ICU step down. This patient is critically ill. This patient required complex medical decision- making, aggressive intervention, extensive laboratory workup and monitoring. Critical care time: 40 minutes. Laboratory Tests Test 06/20/18 09:20 White Blood Count 14.2 K/UL (4.8-10.8) H Red Blood Count 3.64 M/UL (4.70-6.10) L Hemoglobin 9.6 G/DL (14.2-18.0) L Hematocrit 28.7 % (42.0-52.0) L Mean Corpuscular Volume 79 FL (80-99) L Mean Corpuscular Hemoglobin 26.4 PG (27.0-31.0) L Mean Corpuscular Hemoglobin Concent 33.5 G/DL (32.0-36.0) Red Cell Distribution Width 16.0 % (11.6-14.8) H Platelet Count 253 K/UL (150-450) Mean Platelet Volume 4.9 FL (6.5-10.1) L Neutrophils (%) (Auto) % (45.0-75.0) Lymphocytes (%) (Auto) % (20.0-45.0) Monocytes (%) (Auto) % (1.0-10.0) Eosinophils (%) (Auto) % (0.0-3.0) Basophils (%) (Auto) % (0.0-2.0) Differential Total Cells Counted 100 Neutrophils % (Manual) 90 % (45-75) H Lymphocytes % (Manual) 5 % (20-45) L Monocytes % (Manual) 4 % (1-10) Eosinophils % (Manual) 1 % (0-3) Basophils % (Manual) 0 % (0-2) Band Neutrophils 0 % (0-8) Platelet Estimate Adequate Platelet Morphology Normal Hypochromasia 2+ Anisocytosis 1+ Microcytosis 1+ Sodium Level 137 MMOL/L (136-145) Potassium Level 3.3 MMOL/L (3.5-5.1) L Chloride Level 101 MMOL/L (98-107) Carbon Dioxide Level 29 MMOL/L (21-32) Anion Gap 7 mmol/L (5-15) Blood Urea Nitrogen 27 mg/dL (7-18) H Creatinine 0.7 MG/DL (0.55-1.30) Estimate Glomerular Filtration Rate mL/min (>60) Glucose Level 154 MG/DL (74-106) H Lactic Acid Level 1.70 mmol/L (0.4-2.0) Calcium Level 8.7 MG/DL (8.5-10.1) Total Bilirubin 1.0 MG/DL (0.2-1.0) Aspartate Amino Transferase (AST) 30 U/L (15-37) Alanine Aminotransferase (ALT) < 6 U/L (12-78) L Alkaline Phosphatase 331 U/L (46-116) H Total Creatine Kinase 20 U/L (26-308) L Creatine Kinase MB < 0.5 NG/ML (0.0-3.6) Creatine Kinase MB Relative Index 2.5 Troponin I 0.005 ng/mL (0.000-0.056) Total Protein 6.9 G/DL (6.4-8.2) Albumin 1.6 G/DL (3.4-5.0) L Globulin 5.3 g/dL Albumin/Globulin Ratio 0.3 (1.0-2.7) L Microbiology Date/Time Source Procedure Growth Status 06/20/18 09:40 Nasal Nares Influenza Types A,B Antigen (CASSIA) - Final Complete EKG Diagnostic Results Rate: normal Rhythm: NSR ST Segments: no acute changes Rhythm Strip Diag. Results EP Interpretation: yes Rate: 70's Rhythm: NSR, no PVC's, no ectopy Chest X-Ray Diagnostic Results Chest X-Ray Diagnostic Results : Chest X-Ray Ordered: Yes # of Views/Limited/Complete: 1 View Indication: Other - Fever EP Interpretation: Yes Interpretation: other - RML and RLL opacity Impression: Other - See above Electronically Signed by: Michelle Last Vital Signs Date Time Temp Pulse Resp B/P (MAP) Pulse Ox O2 Delivery O2 Flow Rate FiO2 06/20/18 11:03 98.8 77 25 100/48 100 Mechanical Ventilator 40 Disposition: ADMITTED INPATIENT Condition: Serious Referrals: Jarrod Vásquez MD (PCP) Chela Nichole DO Jun 20, 2018 11:54
[2018-06-20 12:00] VITALS: BP 132/70
[2018-06-20 15:43] LABS: APPEARANCE,URINE SLIGHTLY CLOUDY; BILIRUBIN, URINE NEGATIVE (NEGATIVE); COLOR,URINE BROWN; GLUCOSE, URINE (UA) NEGATIVE (NEGATIVE); KETONES,URINE 2+ (NEGATIVE); LEUKOCYTE ESTERASE ,URINE 3+ (NEGATIVE); NITRITE,URINE POSITIVE (NEGATIVE); PH,URINE 6 (4.5-8.0); PROTEIN,URINE 2+ (NEGATIVE); UROBILINOGEN,URINE 4 MG/DL (0.0-1.0)
[2018-06-20 16:00] VITALS: BP 144/71
[2018-06-20] MEDS ORDERED: Artificial Tears 1.4% Op Soln BOTH EYES PRN (18:00)
[2018-06-20] MEDS ORDERED: Acetaminophen 650mg/20.3ml ORAL PRN (18:00)
[2018-06-20] MEDS: Isoniazid 300mg tab GT SCH (19:16)
[2018-06-20] MEDS: Meropenem 1 GM in NS 55 ML IVPB SCH (19:48)
[2018-06-20 20:00] VITALS: BP 104/53
[2018-06-20] MEDS ORDERED: Vancomycin 1250mg/D5W 250ml IVPB SCH (20:00)
[2018-06-20] MEDS ORDERED: Albuterol/Ipratropium 3ml neb HHN SCH (21:00)
--- NOTE | 2018-06-20 21:15 | Consultation ---
DATE OF CONSULTATION: 06/20/2018 INFECTIOUS DISEASE CONSULTATION This consult is for coverage of Dr. Urban. CONSULTING PHYSICIAN: Rahul Shen M.D. PRIMARY ATTENDING PHYSICIAN: Jarrod Vásquez M.D. REASON FOR CONSULTATION: Sepsis and pneumonia. HISTORY OF PRESENT ILLNESS: This 72-year-old male admitted today from a care home facility because of fever. The patient has history of frequent admissions because of known pneumonia, also was diagnosed with pulmonary TB and is on treatment for that. He is not a source of history. PAST MEDICAL HISTORY: Significant for ventilator-dependent respiratory failure, pulmonary TB diagnosed few months ago, dementia, anemia, history of CVA, TIA, benign prostatic hypertrophy, anemia, and history of syphilis. ALLERGIES: No known drug allergy. MEDICATIONS: He is started on cefepime in hospital. SOCIAL HISTORY: skilled nursing resident. Poor mental functional status. No other history obtainable by the patient. PHYSICAL EXAMINATION: VITAL SIGNS: T-max is 100.6, current temperature 99, blood pressure 144/71, and pulse is 90. GENERAL APPEARANCE: Seems to be thin, no acute distress. HEAD AND NECK: Status post tracheostomy. HEART: Has normal rate. LUNGS: On mechanical ventilator. Has decreased sounds. ABDOMEN: Soft. G-tube in place. EXTREMITIES: Has no edema. Has peripheral line. Has muscular atrophy. LABORATORY AND DIAGNOSTIC DATA: WBC 14.2, hemoglobin 9.6, hematocrit 28.7, and platelets are 253,000. Sodium 137, potassium 3.3, chloride 101, bicarbonate 29, BUN 27, creatinine 0.7 and glucose 154. Albumin is 1.5. Influenza A and B tests were negative. Chest x-ray showed extensive infiltrate, likely pneumonia involving the right mid and lower lung, suspect a bilateral pleural effusion. faint infiltrate in the left lung. UA showed WBC of 20 to 30, leukocyte esterase 3+, and nitrite positive. IMPRESSION: Sepsis with fever and leukocytosis. The patient seems to develop pneumonia likely ventilator-associated pneumonia. In previous admission, the patient grew Acinetobacter in the sputum. The patient has also pyuria likely urinary tract infection, ventilator-dependent respiratory failure, advanced dementia, diabetes mellitus, hypertension, pulmonary tuberculosis, and anemia. RECOMMENDATIONS: 1. Change cefepime to meropenem. 2. We will obtain a sputum culture. 3. We will start the patient on minocycline. 4. We will follow up the cultures. At the end of my exam, I thank, Dr. Vásquez, for involving me in the care of this patient. Rahul Shen M.D. DR: MO JOB#: [id number] CC: CHRISTEN
[2018-06-20] MEDS: levETIRAcetam 500mg/5ml Liquid GT SCH (21:22)
[2018-06-20] MEDS: Tamsulosin 0.4mg cap ORAL SCH (21:22)
[2018-06-20] MEDS: Minocycline HCl 50mg cap ORAL SCH (21:22)
[2018-06-20] MEDS: Heparin 5000 units/ml inj SUBQ SCH (21:24)
[2018-06-20] MEDS: Metoprolol Tartrate 50mg tab GT SCH (21:25)
[2018-06-20] MEDS ORDERED: Piperacillin/Tazobactam 3.375 GM in NS 110 ML IVPB SCH (22:00)
--- NOTE | 2018-06-20 22:00 | Consultation ---
DATE OF CONSULTATION: 06/20/2018 PULMONARY CONSULTATION CONSULTING PHYSICIAN: Nakul Cisse M.D. REASON FOR CONSULTATION: Respiratory failure, ventilatory management. HISTORY OF PRESENT ILLNESS: This is a 72-year-old male, who is a intermediate patient. The patient with essentially more advanced age on a ventilator and essentially bedbound. The patient was noted to be more altered and noted to have fever in the emergency room. The patient was seen and evaluated, have evidence of leukocytosis with concern for sepsis. The patient did have an EKG. X-ray is showing evidence of pneumonia. The patient admitted for further care management and further evaluation and intervention. The patient has had prior admissions here to the [facility] center. The patient has failed to thrive and overall doing poorly. The patient's was noted to be fairly acute. The patient was transported via 911 for discussion with the nursing staff at the nursing facility. PAST MEDICAL HISTORY: Notable for hypertension, prior history of pneumonia, toxic metabolic encephalopathy, dyspnea, hyperlipidemia, aspiration, chronic respiratory failure, B12 deficiency, prior history of sepsis, history of TB in the past, and history of pneumonia in the past. MEDICATIONS: Reviewed. ALLERGIES: Reviewed. REVIEW OF SYSTEMS: Unobtainable due to the patient's present state. SOCIAL HISTORY: Resides at a subacute facility. PHYSICAL EXAMINATION: GENERAL: A well-developed male, however, the patient appears to be chronically ill and thin. VITAL SIGNS: 110/80, 14, 88, saturations 100% and temperature 98.8 degrees. HEENT: Fairly negative. NECK: Supple. No adenopathy. LUNGS: Scattered rhonchi. Moderate air entry. CARDIAC: S1 and S2. Regular rate and rhythm without murmurs, rubs, or gallops. ABDOMEN: Soft, nontender, and nondistended. G-tube in place. EXTREMITIES: No cyanosis or clubbing. There are some contractures. Tracheostomy in place. G-tube in place. SKIN: Noted and reviewed. LABORATORY AND DIAGNOSTIC DATA: Reviewed. White count 14.2, hemoglobin 9.6, hematocrit 28, and platelets of 253,000. Chemistry is noted, sodium 137, potassium 3.3, BUN 27, and creatinine 0.7. Liver enzymes slightly elevated. The patient's albumin is 1.6. The x-ray is noted with bilateral infiltrates. IMPRESSION: Respiratory failure, evidence of hospital-acquired pneumonia, tracheostomy G-tube, transaminitis, severe protein-calorie malnutrition, chronic encephalopathy, chronic respiratory failure, leukocytosis, possible sepsis, anemia, and history of seizure disorder. RECOMMENDATIONS: Supportive care. IV antibiotics. Respiratory care. Monitor management. Monitor acid-base. Monitor exam. Follow up cultures. Consider ID evaluation. Resume feedings and aspiration precautions and elevate head if possible. Monitor hemodynamics and reassess clinically for further changes and interventions and ongoing recommendations. Nakul Cisse M.D. DR: [place] JOB#: [id number] CC: CHRISTEN
[2018-06-21] VITALS: BP 110/62
[2018-06-21] MEDS ORDERED: Acetaminophen 650mg/20.3ml GT PRN (02:00)
[2018-06-21] MEDS: Meropenem 1 GM in NS 55 ML IVPB SCH ×3 (02:36→17:13)
[2018-06-21] MEDS: Albuterol/Ipratropium 3ml neb HHN SCH ×6 (02:46→22:57)
[2018-06-21 04:00] VITALS: BP 134/72
[2018-06-21 05:08] LABS: HEMATOCRIT 28.2 % (42.0-52.0); HEMOGLOBIN 9.3 G/DL (14.2-18.0); MEAN CORPUSCULAR VOLUME 80 FL (80-99); PLATELET COUNT 253 K/UL (150-450); RED BLOOD COUNT 3.53 M/UL (4.70-6.10); RED CELL DISTRIBUTION WIDTH 16.6 % (11.6-14.8); WHITE BLOOD COUNT 19.4 K/UL (4.8-10.8)
[2018-06-21 05:20] LABS: ANION GAP 7 mmol/L (5-15); BLOOD UREA NITROGEN 23 mg/dL (7-18); CARBON DIOXIDE 29 MMOL/L (21-32); CHLORIDE 104 MMOL/L (98-107); CREATININE 0.6 MG/DL (0.55-1.30); POTASSIUM 4.3 MMOL/L (3.5-5.1); SODIUM 140 MMOL/L (136-145)
[2018-06-21 08:00] VITALS: BP 154/77
[2018-06-21] MEDS ORDERED: Vancomycin 750mg/NS 250ml IVPB SCH (08:00)
[2018-06-21] MEDS ORDERED: Docusate 100mg/10ml Liq GT SCH (09:00)
[2018-06-21] MEDS ORDERED: Docusate 100mg/10ml Liq ORAL SCH (09:00)
[2018-06-21] MEDS: Pyridoxine 50mg tab GT SCH (09:08)
[2018-06-21] MEDS: Aspirin Baby 81mg GT SCH (09:08)
[2018-06-21] MEDS: Isoniazid 300mg tab GT SCH (09:09)
[2018-06-21] MEDS: Ascorbic Acid 500mg tab GT SCH (09:09)
[2018-06-21] MEDS: Minocycline HCl 50mg cap ORAL SCH ×2 (09:09→20:54)
[2018-06-21] MEDS: levETIRAcetam 500mg/5ml Liquid GT SCH ×2 (09:09→20:54)
[2018-06-21] MEDS: Multivitamin w/Minerals tab ORAL SCH (09:09)
[2018-06-21] MEDS: Metoprolol Tartrate 50mg tab GT SCH ×2 (09:09→20:55)
[2018-06-21] MEDS: Doxazosin 1mg Tab GT SCH (09:11)
--- NOTE | 2018-06-21 09:19 | Pulmonology Progress Note ---
Assessment/Plan Assessment/Plan IMPRESSION: Respiratory failure, evidence of hospital-acquired pneumonia, tracheostomy G-tube, transaminitis, severe protein-calorie malnutrition, chronic encephalopathy, chronic respiratory failure, leukocytosis, possible sepsis, anemia, and history of seizure disorder. PLAN vent same antibiotics care noted and reviewed monitor wbc wound care feeds remains guarded and prognosis poor overall impression, plan, and exam edited and reviewed in detail care discussed with RN Subjective ROS Limited/Unobtainable: Yes Allergies: Coded Allergies: No Known Allergies (Unverified , 01/27/17) Subjective care noted vent noted Objective Last 24 Hour Vital Signs Date Time Temp Pulse Resp B/P (MAP) Pulse Ox O2 Delivery O2 Flow Rate FiO2 06/21/18 09:09 107 154/77 06/21/18 09:08 107 154/77 06/21/18 08:00 Mechanical Ventilator 06/21/18 08:00 30 06/21/18 08:00 98.8 107 28 154/77 (102) 97 06/21/18 07:52 87 21 100 Mechanical Ventilator 30 06/21/18 07:40 104 24 100 Mechanical Ventilator 30 06/21/18 07:39 108 22 30 06/21/18 05:15 91 24 30 06/21/18 04:00 30 06/21/18 04:00 91 06/21/18 04:00 Mechanical Ventilator 06/21/18 04:00 98.2 92 20 134/72 (92) 100 06/21/18 02:55 83 21 100 Mechanical Ventilator 30 06/21/18 02:47 87 24 30 06/21/18 02:47 91 24 100 Mechanical Ventilator 30 06/21/18 00:40 82 19 30 06/21/18 00:00 30 06/21/18 00:00 85 06/21/18 00:00 Mechanical Ventilator 06/21/18 00:00 98.0 80 20 110/62 (78) 100 06/20/18 22:48 84 24 30 06/20/18 21:25 99 118/68 06/20/18 21:00 96 20 35 06/20/18 20:00 103 06/20/18 20:00 Mechanical Ventilator 06/20/18 20:00 40 06/20/18 20:00 98.8 98 20 104/53 (70) 100 06/20/18 19:48 98.8 06/20/18 19:28 102 26 35 06/20/18 17:07 94 25 40 06/20/18 16:00 40 06/20/18 16:00 Mechanical Ventilator 06/20/18 16:00 91 06/20/18 16:00 99.0 90 24 144/71 (95) 100 06/20/18 15:01 94 26 40 06/20/18 13:32 89 06/20/18 12:53 82 27 40 06/20/18 12:25 98.8 77 25 100/48 100 Mechanical Ventilator 40 06/20/18 12:00 40 06/20/18 12:00 Mechanical Ventilator 06/20/18 12:00 Mechanical Ventilator 06/20/18 12:00 97.7 82 25 132/70 (90) 98 06/20/18 11:03 98.8 77 25 100/48 100 Mechanical Ventilator 40 06/20/18 10:53 81 22 40 06/20/18 10:16 82 27 Mechanical Ventilator 40 06/20/18 10:16 82 27 96/48 100 Mechanical Ventilator 40 06/20/18 09:28 92 27 Mechanical Ventilator 40 06/20/18 09:22 92 27 40 Intake and Output 06/20/18 06/21/18 19:00 07:00 Intake Total 160 ml 570 ml Output Total 200 ml 450 ml Balance -40 ml 120 ml Intake Free Water 100 ml IV Total 110 ml Tube Feeding 60 ml 460 ml Output Urine Total 200 ml 450 ml # Voids 1 # Bowel Movements 2 2 Objective GENERAL: A well-developed male, chronically ill and thin. HEENT: Fairly negative. NECK: Supple. No adenopathy. LUNGS: Scattered rhonchi. Moderate air entry. CARDIAC: S1 and S2. Regular rate and rhythm without murmurs, rubs, or gallops. ABDOMEN: Soft, nontender, and nondistended. G-tube in place. EXTREMITIES: No cyanosis or clubbing. There are some contractures. Tracheostomy in place. G-tube in place. SKIN: Noted and reviewed. Microbiology Date/Time Source Procedure Growth Status 06/20/18 09:40 Nasal Nares Influenza Types A,B Antigen (CASSIA) - Final Complete 06/20/18 15:00 Urine,Clean Catch Urine Culture - Preliminary Gram Negative Gildardo Resulted Laboratory Tests 06/20/18 09:20: White Blood Count 14.2H, Red Blood Count 3.64L, Hemoglobin 9.6L, Hematocrit 28.7L, Mean Corpuscular Volume 79L, Mean Corpuscular Hemoglobin 26.4L, Mean Corpuscular Hemoglobin Concent 33.5, Red Cell Distribution Width 16.0H, Platelet Count 253, Mean Platelet Volume 4.9L, Neutrophils (%) (Auto) , Lymphocytes (%) (Auto) , Monocytes (%) (Auto) , Eosinophils (%) (Auto) , Basophils (%) (Auto) , Differential Total Cells Counted 100, Neutrophils % ( Manual) 90H, Lymphocytes % (Manual) 5L, Monocytes % (Manual) 4, Eosinophils % ( Manual) 1, Basophils % (Manual) 0, Band Neutrophils 0, Platelet Estimate Adequate, Platelet Morphology Normal, Hypochromasia 2+, Anisocytosis 1+, Microcytosis 1+, Sodium Level 137, Potassium Level 3.3L, Chloride Level 101, Carbon Dioxide Level 29, Anion Gap 7, Blood Urea Nitrogen 27H, Creatinine 0.7, Estimat Glomerular Filtration Rate , Glucose Level 154H, Lactic Acid Level 1.70 , Calcium Level 8.7, Total Bilirubin 1.0, Aspartate Amino Transf (AST/SGOT) 30, Alanine Aminotransferase (ALT/SGPT) < 6L, Alkaline Phosphatase 331H, Total Creatine Kinase 20L, Creatine Kinase MB < 0.5, Creatine Kinase MB Relative Index 2.5, Troponin I 0.005, Total Protein 6.9, Albumin 1.6L, Globulin 5.3, Albumin/Globulin Ratio 0.3L 06/20/18 15:00: Urine Color Brown, Urine Appearance Slightly cloudy, Urine pH 6, Urine Specific [place] 1.010, Urine Protein 2+H, Urine Glucose (UA) Negative, Urine Ketones 2+H , Urine Blood 5+H, Urine Nitrite PositiveH, Urine Bilirubin Negative, Urine Urobilinogen 4H, Urine Leukocyte Esterase 3+H, Urine RBC 5-10H, Urine WBC 20-30H , Urine Squamous Epithelial Cells None, Urine Amorphous Sediment ModerateH, Urine Bacteria ModerateH, Urine Yeast FewH 06/21/18 04:15: White Blood Count 19.4H, Red Blood Count 3.53L, Hemoglobin 9.3L, Hematocrit 28.2L, Mean Corpuscular Volume 80, Mean Corpuscular Hemoglobin 26.2L, Mean Corpuscular Hemoglobin Concent 32.8, Red Cell Distribution Width 16.6H, Platelet Count 253, Mean Platelet Volume 5.0L, Neutrophils (%) (Auto) , Lymphocytes (%) (Auto) , Monocytes (%) (Auto) , Eosinophils (%) (Auto) , Basophils (%) (Auto) , Neutrophils % (Manual) [Pending], Lymphocytes % (Manual) [Pending], Platelet Estimate [Pending], Platelet Morphology [Pending], Sodium Level 140, Potassium Level 4.3, Chloride Level 104, Carbon Dioxide Level 29, Anion Gap 7, Blood Urea Nitrogen 23H, Creatinine 0.6, Estimat Glomerular Filtration Rate , Glucose Level 105, Calcium Level 9.0 Current Medications Medications (Trade) Dose Ordered Sig/Iram Route PRN Reason Start Time Stop Time Status Last Admin Dose Admin Acetaminophen (Tylenol) 650 mg Q4H PRN GT Fever/Headache/Mild Pain 06/21/18 02:00 07/20/18 17:59 Albuterol/ Ipratropium (Albuterol/ Ipratropium) 3 ml Q4HRT HHN 06/21/18 03:00 06/25/18 20:59 06/21/18 07:39 Amlodipine Besylate (Norvasc) 10 mg DAILY GT 06/21/18 09:00 07/21/18 08:59 06/21/18 09:08 Artificial Tears (Akwa-Tears) 2 drop FIVE TIMES A DAY PRN BOTH EYES Dry Eyes 06/20/18 18:00 07/20/18 17:59 Ascorbic Acid (Vitamin C) 250 mg DAILY GT 06/21/18 09:00 07/21/18 08:59 06/21/18 09:09 Aspirin (ASA) 81 mg DAILY GT 06/21/18 09:00 07/21/18 08:59 06/21/18 09:08 Atorvastatin Calcium (Lipitor) 10 mg BEDTIME GT 06/20/18 21:00 07/20/18 20:59 06/20/18 21:22 Docusate Sodium (Colace) 100 mg DAILY GT 06/21/18 09:00 07/21/18 08:59 Doxazosin Mesylate (Cardura) 1 mg DAILY GT 06/21/18 09:00 07/21/18 08:59 06/21/18 09:11 Heparin Sodium (Porcine) (Heparin 5000 units/ml) 5,000 units EVERY 12 HOURS SUBQ 06/20/18 21:00 07/20/18 20:59 06/20/18 21:24 Isoniazid (Inh) 300 mg DAILY GT 06/20/18 18:00 07/20/18 17:59 06/21/18 09:09 Lansoprazole (Prevacid) 30 mg Q12HR GT 06/20/18 21:00 07/20/18 20:59 06/21/18 09:10 Levetiracetam (Keppra) 750 mg EVERY 12 HOURS GT 06/20/18 21:00 07/20/18 20:59 06/21/18 09:09 Meropenem 1 gm/ Sodium Chloride 55 ml @ 110 mls/hr Q8H IVPB 06/20/18 18:00 06/25/18 17:59 06/21/18 09:13 Metoprolol Tartrate (Lopressor) 50 mg Q12HR GT 06/20/18 21:00 07/20/18 20:59 06/21/18 09:09 Minocycline HCl (Minocin) 100 mg Q12HR ORAL 06/20/18 21:00 06/27/18 20:59 06/21/18 09:09 Multivitamins Therapeutic (Therapeutic Multivitamin) 1 ea DAILY ORAL 06/21/18 09:00 07/21/18 08:59 06/21/18 09:09 Pyrazinamide (Pza) 1,000 mg DAILY GT 06/20/18 18:00 07/20/18 17:59 06/21/18 09:09 Pyridoxine HCl (Vitamin B6) 50 mg DAILY GT 06/21/18 09:00 07/21/18 08:59 06/21/18 09:08 Rifampin (Rifadin) 600 mg DAILY GT 06/20/18 18:00 07/20/18 17:59 06/21/18 09:09 Tamsulosin HCl (Flomax) 0.4 mg BEDTIME ORAL 06/20/18 21:00 07/20/18 20:59 06/20/18 21:22 Nakul Cisse MD Jun 21, 2018 09:19
[2018-06-21] MEDS: Heparin 5000 units/ml inj SUBQ SCH ×2 (09:25→20:57)
--- NOTE | 2018-06-21 09:30 | History and Physical Report ---
DATE OF ADMISSION: 06/20/2018 HISTORY OF PRESENT ILLNESS: The patient is an unfortunate 72-year-old male. He has a history of chronic respiratory failure, seizure disorder, stroke, and hypertension. He has a history of pulmonary tuberculosis. He was transferred from a [place] [facility] facility because of tachycardia and fever. On evaluation in the emergency room, the patient had elevated white count. He had evidence of urinary tract infection as well as extensive bilateral infiltrates. The patient has been pancultured, broad-spectrum antibiotics have been instituted. He is now admitted for further evaluation and care. The patient is minimally verbal at baseline. He opens his eyes, but is otherwise unable provide any additional history. PAST MEDICAL HISTORY: As above. PAST SURGICAL HISTORY: Includes a history of trach and a G-tube. CURRENT MEDICATIONS: Reconciled and reviewed. ALLERGIES: None. FAMILY HISTORY: None. SOCIAL HISTORY: There is no known history of tobacco, ethanol, or drugs. The patient is a Full Code. PHYSICAL EXAMINATION: VITAL SIGNS: Initial temperature was 100.6, current temperature is 98.2, pulse 87, respirations 20, and blood pressure 134/72. GENERAL: The patient is well-developed, no apparent distress, appears chronically ill. Does not respond to verbal or tactile stimuli. NECK: Supple. HEART: Regular rate and rhythm. LUNGS: Mostly clear. ABDOMEN: Soft, nontender, and nondistended. EXTREMITIES: Without clubbing or cyanosis. The patient has a sacral wound. LABORATORY AND DIAGNOSTIC DATA: Labs, white count 14,000, hemoglobin 9.6, hematocrit 28.7, and platelets 253. Sodium 137, potassium 3.3, chloride 101, bicarb 29, BUN 27, and creatinine 0.7. UA showed 20 to 30 wbc's. Chest x-ray showed bilateral infiltrates. ASSESSMENT: This is an unfortunate 72-year-old male with history of encephalopathy, stroke, seizure disorder, hypertension, pulmonary tuberculosis, admitted with complaints of sepsis secondary to urinary tract infection and pneumonia. PROBLEM LIST: 1. Sepsis. 2. Pneumonia. 3. UTI. 4. Tachycardia secondary to the above. 5. History of seizure disorder. 6. Stroke. 7. COPD. PLAN: Broad-spectrum antibiotics. Continue TB medications, IV hydration as needed. Continue beta blockade, G-tube feedings, wound care, Manzo catheter for wound care management. Continue respiratory treatments and suction as needed. Jarrod Vásquez M.D. DR: ASHIA JOB#: [id number] CC:
--- NOTE | 2018-06-21 10:50 | Infectious Diseases Prog Note ---
Assessment/Plan Assessment/Plan antibiotics : isoniazid, rifampin, pyrazinamide, pyridoxine, meropenem, doxycycline A 1. pneumonia 2. gram negative UTI 3. pulmonary TB 4. respiratory failure 5. seizures 6. leucocytosis P 1. continue meropenem, doxycycline 2. continue isoniazid, rifampin, pyrazinamide, pyridoxine 3. sputum culture 4. will follwo up cultures Subjective ROS Limited/Unobtainable: Yes Allergies: Coded Allergies: No Known Allergies (Unverified , 01/27/17) Objective Vital Signs Last 24 Hour Vital Signs Date Time Temp Pulse Resp B/P (MAP) Pulse Ox O2 Delivery O2 Flow Rate FiO2 06/21/18 09:43 104 23 30 06/21/18 09:09 107 154/77 06/21/18 09:08 107 154/77 06/21/18 08:00 Mechanical Ventilator 06/21/18 08:00 30 06/21/18 08:00 105 06/21/18 08:00 98.8 107 28 154/77 (102) 97 06/21/18 07:52 87 21 100 Mechanical Ventilator 30 06/21/18 07:40 104 24 100 Mechanical Ventilator 30 06/21/18 07:39 108 22 30 06/21/18 05:15 91 24 30 06/21/18 04:00 30 06/21/18 04:00 91 06/21/18 04:00 Mechanical Ventilator 06/21/18 04:00 98.2 92 20 134/72 (92) 100 06/21/18 02:55 83 21 100 Mechanical Ventilator 30 06/21/18 02:47 87 24 30 06/21/18 02:47 91 24 100 Mechanical Ventilator 30 06/21/18 00:40 82 19 30 06/21/18 00:00 30 06/21/18 00:00 85 06/21/18 00:00 Mechanical Ventilator 06/21/18 00:00 98.0 80 20 110/62 (78) 100 06/20/18 22:48 84 24 30 06/20/18 21:25 99 118/68 06/20/18 21:00 96 20 35 06/20/18 20:00 103 06/20/18 20:00 Mechanical Ventilator 06/20/18 20:00 40 06/20/18 20:00 98.8 98 20 104/53 (70) 100 06/20/18 19:48 98.8 06/20/18 19:28 102 26 35 06/20/18 17:07 94 25 40 06/20/18 16:00 40 06/20/18 16:00 Mechanical Ventilator 06/20/18 16:00 91 06/20/18 16:00 99.0 90 24 144/71 (95) 100 06/20/18 15:01 94 26 40 06/20/18 13:32 89 06/20/18 12:53 82 27 40 06/20/18 12:25 98.8 77 25 100/48 100 Mechanical Ventilator 40 06/20/18 12:00 40 06/20/18 12:00 Mechanical Ventilator 06/20/18 12:00 Mechanical Ventilator 06/20/18 12:00 97.7 82 25 132/70 (90) 98 06/20/18 11:03 98.8 77 25 100/48 100 Mechanical Ventilator 40 06/20/18 10:53 81 22 40 Height (Feet): 5 Height (Inches): 8.00 Weight (Pounds): 150 HEENT: status post trach Respiratory/Chest: lungs clear Cardiovascular: normal rate, regular rhythm, no gallop/murmur Abdomen: soft, non tender, other - GT Extremities: no edema Microbiology Date/Time Source Procedure Growth Status 06/20/18 09:40 Nasal Nares Influenza Types A,B Antigen (CASSIA) - Final Complete 06/20/18 15:00 Urine,Clean Catch Urine Culture - Preliminary Gram Negative Gildardo Resulted Laboratory Tests Test 06/20/18 15:00 06/21/18 04:15 Urine Color Brown Urine Appearance Slightly cloudy Urine pH 6 (4.5-8.0) Urine Specific [place] 1.010 (1.005-1.035) Urine Protein 2+ (NEGATIVE) H Urine Glucose (UA) Negative (NEGATIVE) Urine Ketones 2+ (NEGATIVE) H Urine Blood 5+ (NEGATIVE) H Urine Nitrite Positive (NEGATIVE) H Urine Bilirubin Negative (NEGATIVE) Urine Urobilinogen 4 MG/DL (0.0-1.0) H Urine Leukocyte Esterase 3+ (NEGATIVE) H Urine RBC 5-10 /HPF (0 - 0) H Urine WBC 20-30 /HPF (0 - 0) H Urine Squamous Epithelial Cells None /LPF (NONE/OCC) Urine Amorphous Sediment Moderate /LPF (NONE) H Urine Bacteria Moderate /HPF (NONE) H Urine Yeast Few /HPF (NONE) H White Blood Count 19.4 K/UL (4.8-10.8) H Red Blood Count 3.53 M/UL (4.70-6.10) L Hemoglobin 9.3 G/DL (14.2-18.0) L Hematocrit 28.2 % (42.0-52.0) L Mean Corpuscular Volume 80 FL (80-99) Mean Corpuscular Hemoglobin 26.2 PG (27.0-31.0) L Mean Corpuscular Hemoglobin Concent 32.8 G/DL (32.0-36.0) Red Cell Distribution Width 16.6 % (11.6-14.8) H Platelet Count 253 K/UL (150-450) Mean Platelet Volume 5.0 FL (6.5-10.1) L Neutrophils (%) (Auto) % (45.0-75.0) Lymphocytes (%) (Auto) % (20.0-45.0) Monocytes (%) (Auto) % (1.0-10.0) Eosinophils (%) (Auto) % (0.0-3.0) Basophils (%) (Auto) % (0.0-2.0) Differential Total Cells Counted 100 Neutrophils % (Manual) 86 % (45-75) H Lymphocytes % (Manual) 5 % (20-45) L Monocytes % (Manual) 7 % (1-10) Eosinophils % (Manual) 2 % (0-3) Basophils % (Manual) 0 % (0-2) Band Neutrophils 0 % (0-8) Platelet Estimate Adequate Platelet Morphology Normal Anisocytosis 1+ Microcytosis 1+ Sodium Level 140 MMOL/L (136-145) Potassium Level 4.3 MMOL/L (3.5-5.1) Chloride Level 104 MMOL/L (98-107) Carbon Dioxide Level 29 MMOL/L (21-32) Anion Gap 7 mmol/L (5-15) Blood Urea Nitrogen 23 mg/dL (7-18) H Creatinine 0.6 MG/DL (0.55-1.30) Estimat Glomerular Filtration Rate mL/min (>60) Glucose Level 105 MG/DL (74-106) Calcium Level 9.0 MG/DL (8.5-10.1) Current Medications Medications (Trade) Dose Ordered Sig/Iram Route PRN Reason Start Time Stop Time Status Last Admin Dose Admin Acetaminophen (Tylenol) 650 mg Q4H PRN GT Fever/Headache/Mild Pain 06/21/18 02:00 07/20/18 17:59 Albuterol/ Ipratropium (Albuterol/ Ipratropium) 3 ml Q4HRT HHN 06/21/18 03:00 06/25/18 20:59 06/21/18 07:39 Amlodipine Besylate (Norvasc) 10 mg DAILY GT 06/21/18 09:00 07/21/18 08:59 06/21/18 09:08 Artificial Tears (Akwa-Tears) 2 drop FIVE TIMES A DAY PRN BOTH EYES Dry Eyes 06/20/18 18:00 07/20/18 17:59 Ascorbic Acid (Vitamin C) 250 mg DAILY GT 06/21/18 09:00 07/21/18 08:59 06/21/18 09:09 Aspirin (ASA) 81 mg DAILY GT 06/21/18 09:00 07/21/18 08:59 06/21/18 09:08 Atorvastatin Calcium (Lipitor) 10 mg BEDTIME GT 06/20/18 21:00 07/20/18 20:59 06/20/18 21:22 Docusate Sodium (Colace) 100 mg DAILY GT 06/21/18 09:00 07/21/18 08:59 Doxazosin Mesylate (Cardura) 1 mg DAILY GT 06/21/18 09:00 07/21/18 08:59 06/21/18 09:11 Heparin Sodium (Porcine) (Heparin 5000 units/ml) 5,000 units EVERY 12 HOURS SUBQ 06/20/18 21:00 07/20/18 20:59 06/21/18 09:25 Isoniazid (Inh) 300 mg DAILY GT 06/20/18 18:00 07/20/18 17:59 06/21/18 09:09 Lansoprazole (Prevacid) 30 mg Q12HR GT 06/20/18 21:00 07/20/18 20:59 06/21/18 09:10 Levetiracetam (Keppra) 750 mg EVERY 12 HOURS GT 06/20/18 21:00 07/20/18 20:59 06/21/18 09:09 Meropenem 1 gm/ Sodium Chloride 55 ml @ 110 mls/hr Q8H IVPB 06/20/18 18:00 06/25/18 17:59 06/21/18 09:13 Metoprolol Tartrate (Lopressor) 50 mg Q12HR GT 06/20/18 21:00 07/20/18 20:59 06/21/18 09:09 Minocycline HCl (Minocin) 100 mg Q12HR ORAL 06/20/18 21:00 06/27/18 20:59 06/21/18 09:09 Multivitamins Therapeutic (Therapeutic Multivitamin) 1 ea DAILY ORAL 06/21/18 09:00 07/21/18 08:59 06/21/18 09:09 Pyrazinamide (Pza) 1,000 mg DAILY GT 06/20/18 18:00 07/20/18 17:59 06/21/18 09:09 Pyridoxine HCl (Vitamin B6) 50 mg DAILY GT 06/21/18 09:00 07/21/18 08:59 06/21/18 09:08 Rifampin (Rifadin) 600 mg DAILY GT 06/20/18 18:00 07/20/18 17:59 06/21/18 09:09 Tamsulosin HCl (Flomax) 0.4 mg BEDTIME ORAL 06/20/18 21:00 07/20/18 20:59 06/20/18 21:22 Sergio Urban MD Jun 21, 2018 10:50
[2018-06-21 12:00] VITALS: BP 116/58
[2018-06-21 15:24] VITALS: BP 127/66
[2018-06-21] MEDS ORDERED: NS 275ml ONE (15:46)
[2018-06-21 20:00] VITALS: BP 144/66
[2018-06-21] MEDS: Tamsulosin 0.4mg cap ORAL SCH (20:55)
[2018-06-22] VITALS: BP 146/66
[2018-06-22] MEDS: Meropenem 1 GM in NS 55 ML IVPB SCH ×3 (02:00→18:05)
[2018-06-22] MEDS: Albuterol/Ipratropium 3ml neb HHN SCH ×6 (02:59→23:23)
[2018-06-22 04:00] VITALS: BP 133/62
[2018-06-22 04:25] LABS: BASOPHILS % (AUTO) 0.4 % (0.0-2.0); EOSINOPHILS % (AUTO) 0.5 % (0.0-3.0); HEMATOCRIT 28.8 % (42.0-52.0); HEMOGLOBIN 9.2 G/DL (14.2-18.0); LYMPHOCYTES % (AUTO) 6.7 % (20.0-45.0); MEAN CORPUSCULAR VOLUME 80 FL (80-99); MONOCYTES % (AUTO) 9.4 % (1.0-10.0); PLATELET COUNT 296 K/UL (150-450); RED BLOOD COUNT 3.59 M/UL (4.70-6.10); RED CELL DISTRIBUTION WIDTH 16.4 % (11.6-14.8); WHITE BLOOD COUNT 14.1 K/UL (4.8-10.8)
[2018-06-22 04:59] LABS: ALANINE AMINOTRANSFERASE 9 U/L (12-78); ALBUMIN 1.5 G/DL (3.4-5.0); ALBUMIN/GLOBULIN RATIO 0.3 (1.0-2.7); ALKALINE PHOSPHATASE 327 U/L (46-116); ANION GAP 8 mmol/L (5-15); ASPARTATE AMINO TRANSFERASE 30 U/L (15-37); BILIRUBIN,TOTAL 1.3 MG/DL (0.2-1.0); BLOOD UREA NITROGEN 30 mg/dL (7-18); CALCIUM 9.4 MG/DL (8.5-10.1); CARBON DIOXIDE 30 MMOL/L (21-32); CHLORIDE 106 MMOL/L (98-107); CREATININE 0.5 MG/DL (0.55-1.30); POTASSIUM 4.3 MMOL/L (3.5-5.1); SODIUM 144 MMOL/L (136-145)
[2018-06-22 08:00] VITALS: BP 132/73
[2018-06-22] MEDS: Metoprolol Tartrate 50mg tab GT SCH ×2 (08:22→21:55)
[2018-06-22] MEDS: Pyridoxine 50mg tab GT SCH (08:24)
[2018-06-22] MEDS: Multivitamin w/Minerals tab ORAL SCH (08:24)
[2018-06-22] MEDS: Aspirin Baby 81mg GT SCH (08:24)
[2018-06-22] MEDS: Ascorbic Acid 500mg tab GT SCH (08:25)
[2018-06-22] MEDS: Doxazosin 1mg Tab GT SCH (08:25)
[2018-06-22] MEDS: Isoniazid 300mg tab GT SCH (08:27)
[2018-06-22] MEDS: Minocycline HCl 50mg cap ORAL SCH ×2 (08:28→21:55)
[2018-06-22] MEDS: levETIRAcetam 500mg/5ml Liquid GT SCH ×2 (08:30→21:54)
[2018-06-22] MEDS: Heparin 5000 units/ml inj SUBQ SCH ×2 (08:31→22:00)
[2018-06-22] MEDS ORDERED: NS 275ml ONE (09:03)
--- NOTE | 2018-06-22 09:14 | General Progress Note ---
Assessment/Plan Problem List: (1) UTI (urinary tract infection), bacterial ICD Codes: N39.0 - Urinary tract infection, site not specified; A49.9 - Bacterial infection, unspecified SNOMED: 210024505 (2) HTN (hypertension) ICD Codes: I10 - Essential (primary) hypertension SNOMED: 65831365 (3) Aspiration pneumonia ICD Codes: J69.0 - Pneumonitis due to inhalation of food and vomit SNOMED: 584564039 (4) Sepsis ICD Codes: A41.9 - Sepsis, unspecified organism SNOMED: 55916663 (5) Encephalopathy ICD Codes: G93.40 - Encephalopathy, unspecified SNOMED: 94707904 (6) Encephalopathy acute ICD Codes: G93.40 - Encephalopathy, unspecified SNOMED: 20214686, 329575062 (7) BPH (benign prostatic hyperplasia) ICD Codes: N40.0 - Benign prostatic hyperplasia without lower urinary tract symptoms SNOMED: 183514270, 985135479 (8) Probable sepsis ICD Codes: A41.9 - Sepsis, unspecified organism SNOMED: 124999679 Status: stable Assessment/Plan iv abx follow up cultures vent resp rx gt feeds wound care mcintyre for wound care management sz rx TB meds Subjective ROS Limited/Unobtainable: Yes Constitutional: Reports: malaise, weakness HEENT: Reports: no symptoms Cardiovascular: Reports: no symptoms Respiratory: Reports: sputum Gastrointestinal/Abdominal: Reports: difficulty swallowing Genitourinary: Reports: no symptoms Neurologic/Psychiatric: Reports: seizure Endocrine: Reports: no symptoms Hematologic/Lymphatic: Reports: anemia Allergies: Coded Allergies: No Known Allergies (Unverified , 01/27/17) All Systems: reviewed and negative except above Subjective no events. stable. no fevers. no szs. on iv abx. tolerating feeds Objective Last 24 Hour Vital Signs Date Time Temp Pulse Resp B/P (MAP) Pulse Ox O2 Delivery O2 Flow Rate FiO2 06/22/18 08:40 87 21 30 06/22/18 08:25 93 132/73 06/22/18 08:22 93 132/73 06/22/18 08:00 98.2 93 25 132/73 (92) 99 06/22/18 08:00 90 06/22/18 07:01 82 12 100 Mechanical Ventilator 30 11/18/18 06:59 83 26 30 06/22/18 06:54 83 12 100 Mechanical Ventilator 30 06/22/18 05:24 82 27 30 06/22/18 04:00 30 06/22/18 04:00 83 06/22/18 04:00 Mechanical Ventilator 06/22/18 04:00 98.6 75 22 133/62 (85) 100 06/22/18 03:09 75 25 100 Mechanical Ventilator 30 06/22/18 02:59 73 25 30 06/22/18 02:59 73 26 97 Mechanical Ventilator 30 06/22/18 01:07 73 23 30 06/22/18 00:00 Mechanical Ventilator 06/22/18 00:00 30 06/22/18 00:00 98.4 88 22 146/66 (92) 100 06/22/18 00:00 77 06/21/18 23:07 79 24 100 Mechanical Ventilator 30 06/21/18 22:57 76 23 30 06/21/18 22:57 76 23 99 Mechanical Ventilator 30 06/21/18 20:55 113 144/66 06/21/18 20:47 113 29 30 06/21/18 20:23 98.2 06/21/18 20:00 98.6 86 26 144/66 (92) 100 18 20:00 30 06/21/18 20:00 Mechanical Ventilator 06/21/18 20:00 104 18 19:45 103 24 100 Mechanical Ventilator 30 18 19:35 100 26 30 18 19:35 100 24 98 Mechanical Ventilator 30 06/21/18 17:05 103 24 30 18 16:00 Mechanical Ventilator 06/21/18 16:00 91 18 16:00 30 18 15:40 97 24 100 Mechanical Ventilator 30 18 15:24 98.2 86 26 127/66 (86) 100 18 15:19 86 24 99 Mechanical Ventilator 30 18 15:18 84 24 30 06/21/18 14:01 87 23 30 18 12:00 30 18 12:00 98.2 89 25 116/58 (77) 99 06/21/18 12:00 88 06/21/18 12:00 Mechanical Ventilator 06/21/18 11:22 91 23 100 Mechanical Ventilator 30 06/21/18 11:11 83 23 98 Mechanical Ventilator 30 06/21/18 11:10 89 24 30 06/21/18 09:43 104 23 30 Intake and Output 06/21/18 06/22/18 19:00 07:00 Intake Total 1135 ml 1080 ml Output Total 350 ml 600 ml Balance 785 ml 480 ml Intake Free Water 290 ml 250 ml IV Total 110 ml 55 ml Tube Feeding 735 ml 715 ml Other 60 ml Output Urine Total 350 ml 600 ml # Bowel Movements 2 Laboratory Tests 06/22/18 03:50: White Blood Count 14.1H, Red Blood Count 3.59L, Hemoglobin 9.2L, Hematocrit 28.8L, Mean Corpuscular Volume 80, Mean Corpuscular Hemoglobin 25.6L, Mean Corpuscular Hemoglobin Concent 31.9L, Red Cell Distribution Width 16.4H, Platelet Count 296, Mean Platelet Volume 5.1L, Neutrophils (%) (Auto) 83.0H, Lymphocytes (%) (Auto) 6.7L, Monocytes (%) (Auto) 9.4, Eosinophils (%) (Auto) 0.5, Basophils (%) (Auto) 0.4, Sodium Level 144, Potassium Level 4.3, Chloride Level 106, Carbon Dioxide Level 30, Anion Gap 8, Blood Urea Nitrogen 30H, Creatinine 0.5L, Estimat Glomerular Filtration Rate , Glucose Level 76, Calcium Level 9.4, Total Bilirubin 1.3H, Direct Bilirubin 1.0H, Aspartate Amino Transf ( AST/SGOT) 30, Alanine Aminotransferase (ALT/SGPT) 9L, Alkaline Phosphatase 327H , Total Protein 7.0, Albumin 1.5L, Globulin 5.5, Albumin/Globulin Ratio 0.3L Height (Feet): 5 Height (Inches): 8.00 Weight (Pounds): 150 General Appearance: WD/WN, lethargic, confused Neck: supple Cardiovascular: normal rate, regular rhythm Respiratory/Chest: chest wall non-tender, lungs clear, normal breath sounds, no respiratory distress Abdomen: normal bowel sounds, non tender, soft, no organomegaly Edema: no edema noted Arm (L), no edema noted Arm (R), no edema noted Leg (L), no edema noted Leg (R), no edema noted Pedal (L), no edema noted Pedal (R), no edema noted Generalized Neurologic: unresponsive, aphasia Jarrod Vásquez MD Jun 22, 2018 09:14
--- NOTE | 2018-06-22 09:38 | Infectious Diseases Prog Note ---
Assessment/Plan Assessment/Plan A 1. pneumonia 2. gram netaive & E. coli ESBL UTI 3. pulmonary TB 4. respiratory failure 5. seizures 6. leucocytosis P 1. continue meropenem, doxycycline 2. continue isoniazid, rifampin, pyrazinamide, pyridoxine 3. will follow up cultures Subjective ROS Limited/Unobtainable: Yes Constitutional: Reports: no symptoms Allergies: Coded Allergies: No Known Allergies (Unverified , 01/27/17) Objective Vital Signs Last 24 Hour Vital Signs Date Time Temp Pulse Resp B/P (MAP) Pulse Ox O2 Delivery O2 Flow Rate FiO2 06/22/18 08:40 87 21 30 06/22/18 08:25 93 132/73 06/22/18 08:22 93 132/73 06/22/18 08:00 98.2 93 25 132/73 (92) 99 06/22/18 08:00 90 06/22/18 07:01 82 12 100 Mechanical Ventilator 30 06/22/18 06:59 83 26 30 06/22/18 06:54 83 12 100 Mechanical Ventilator 30 06/22/18 05:24 82 27 30 06/22/18 04:00 30 06/22/18 04:00 83 06/22/18 04:00 Mechanical Ventilator 06/22/18 04:00 98.6 75 22 133/62 (85) 100 06/22/18 03:09 75 25 100 Mechanical Ventilator 30 06/22/18 02:59 73 25 30 06/22/18 02:59 73 26 97 Mechanical Ventilator 30 06/22/18 01:07 73 23 30 06/22/18 00:00 Mechanical Ventilator 06/22/18 00:00 30 06/22/18 00:00 98.4 88 22 146/66 (92) 100 06/22/18 00:00 77 06/21/18 23:07 79 24 100 Mechanical Ventilator 30 06/21/18 22:57 76 23 30 06/21/18 22:57 76 23 99 Mechanical Ventilator 30 06/21/18 20:55 113 144/66 06/21/18 20:47 113 29 30 06/21/18 20:23 98.2 06/21/18 20:00 98.6 86 26 144/66 (92) 100 06/21/18 20:00 30 06/21/18 20:00 Mechanical Ventilator 06/21/18 20:00 104 06/21/18 19:45 103 24 100 Mechanical Ventilator 30 06/21/18 19:35 100 26 30 18 19:35 100 24 98 Mechanical Ventilator 30 06/21/18 17:05 103 24 30 06/21/18 16:00 Mechanical Ventilator 06/21/18 16:00 91 06/21/18 16:00 30 06/21/18 15:40 97 24 100 Mechanical Ventilator 30 06/21/18 15:24 98.2 86 26 127/66 (86) 100 06/21/18 15:19 86 24 99 Mechanical Ventilator 30 06/21/18 15:18 84 24 30 06/21/18 14:01 87 23 30 06/21/18 12:00 30 06/21/18 12:00 98.2 89 25 116/58 (77) 99 06/21/18 12:00 88 06/21/18 12:00 Mechanical Ventilator 06/21/18 11:22 91 23 100 Mechanical Ventilator 30 06/21/18 11:11 83 23 98 Mechanical Ventilator 30 06/21/18 11:10 89 24 30 06/21/18 09:43 104 23 30 Height (Feet): 5 Height (Inches): 8.00 Weight (Pounds): 150 HEENT: status post trach Respiratory/Chest: lungs clear, other - on ventilator Cardiovascular: normal rate Abdomen: soft, non tender, other - GT feeding Extremities: no edema Neurologic/Psychiatric: aphasia Microbiology Date/Time Source Procedure Growth Status 06/20/18 09:35 Blood Blood Culture - Preliminary NO GROWTH AFTER 24 HOURS Resulted 06/20/18 09:20 Blood Blood Culture - Preliminary NO GROWTH AFTER 24 HOURS Resulted 06/20/18 10:40 Nasal Nares MRSA Culture - Final NO METHICILLIN RESISTANT STAPH AUREUS... Complete 06/20/18 09:40 Nasal Nares Influenza Types A,B Antigen (CASSIA) - Final Complete 06/22/18 01:00 Stool Clostridium difficile Toxin Assay - Final Complete 06/20/18 15:00 Urine,Clean Catch Urine Culture - Preliminary Escherichia Coli - Esbl Gram Negative Bacillus 2 Resulted Laboratory Tests Test 06/22/18 03:50 White Blood Count 14.1 K/UL (4.8-10.8) H Red Blood Count 3.59 M/UL (4.70-6.10) L Hemoglobin 9.2 G/DL (14.2-18.0) L Hematocrit 28.8 % (42.0-52.0) L Mean Corpuscular Volume 80 FL (80-99) Mean Corpuscular Hemoglobin 25.6 PG (27.0-31.0) L Mean Corpuscular Hemoglobin Concent 31.9 G/DL (32.0-36.0) L Red Cell Distribution Width 16.4 % (11.6-14.8) H Platelet Count 296 K/UL (150-450) Mean Platelet Volume 5.1 FL (6.5-10.1) L Neutrophils (%) (Auto) 83.0 % (45.0-75.0) H Lymphocytes (%) (Auto) 6.7 % (20.0-45.0) L Monocytes (%) (Auto) 9.4 % (1.0-10.0) Eosinophils (%) (Auto) 0.5 % (0.0-3.0) Basophils (%) (Auto) 0.4 % (0.0-2.0) Sodium Level 144 MMOL/L (136-145) Potassium Level 4.3 MMOL/L (3.5-5.1) Chloride Level 106 MMOL/L (98-107) Carbon Dioxide Level 30 MMOL/L (21-32) Anion Gap 8 mmol/L (5-15) Blood Urea Nitrogen 30 mg/dL (7-18) H Creatinine 0.5 MG/DL (0.55-1.30) L Estimat Glomerular Filtration Rate mL/min (>60) Glucose Level 76 MG/DL (74-106) Calcium Level 9.4 MG/DL (8.5-10.1) Total Bilirubin 1.3 MG/DL (0.2-1.0) H Direct Bilirubin 1.0 MG/DL (0.0-0.3) H Aspartate Amino Transf (AST/SGOT) 30 U/L (15-37) Alanine Aminotransferase (ALT/SGPT) 9 U/L (12-78) L Alkaline Phosphatase 327 U/L (46-116) H Total Protein 7.0 G/DL (6.4-8.2) Albumin 1.5 G/DL (3.4-5.0) L Globulin 5.5 g/dL Albumin/Globulin Ratio 0.3 (1.0-2.7) L Current Medications Medications (Trade) Dose Ordered Sig/Iram Route PRN Reason Start Time Stop Time Status Last Admin Dose Admin Acetaminophen (Tylenol) 650 mg Q4H PRN GT Fever/Headache/Mild Pain 06/21/18 02:00 07/20/18 17:59 06/21/18 19:53 Albuterol/ Ipratropium (Albuterol/ Ipratropium) 3 ml Q4HRT HHN 06/21/18 03:00 06/25/18 20:59 06/22/18 07:02 Amlodipine Besylate (Norvasc) 10 mg DAILY GT 06/21/18 09:00 07/21/18 08:59 06/22/18 08:25 Artificial Tears (Akwa-Tears) 2 drop FIVE TIMES A DAY PRN BOTH EYES Dry Eyes 06/20/18 18:00 07/20/18 17:59 Ascorbic Acid (Vitamin C) 250 mg DAILY GT 06/21/18 09:00 07/21/18 08:59 06/22/18 08:25 Aspirin (ASA) 81 mg DAILY GT 06/21/18 09:00 07/21/18 08:59 06/22/18 08:24 Atorvastatin Calcium (Lipitor) 10 mg BEDTIME GT 06/20/18 21:00 07/20/18 20:59 06/21/18 20:54 Doxazosin Mesylate (Cardura) 1 mg DAILY GT 06/21/18 09:00 07/21/18 08:59 06/22/18 08:25 Heparin Sodium (Porcine) (Heparin 5000 units/ml) 5,000 units EVERY 12 HOURS SUBQ 06/20/18 21:00 07/20/18 20:59 06/22/18 08:31 Isoniazid (Inh) 300 mg DAILY GT 06/20/18 18:00 07/20/18 17:59 06/22/18 08:27 Lansoprazole (Prevacid) 30 mg Q12HR GT 06/20/18 21:00 07/20/18 20:59 06/22/18 08:24 Levetiracetam (Keppra) 750 mg EVERY 12 HOURS GT 06/20/18 21:00 07/20/18 20:59 06/22/18 08:30 Meropenem 1 gm/ Sodium Chloride 55 ml @ 110 mls/hr Q8H IVPB 06/20/18 18:00 06/25/18 17:59 06/22/18 02:00 Metoprolol Tartrate (Lopressor) 50 mg Q12HR GT 06/20/18 21:00 07/20/18 20:59 06/22/18 08:22 Minocycline HCl (Minocin) 100 mg Q12HR ORAL 06/20/18 21:00 06/27/18 20:59 06/22/18 08:28 Multivitamins Therapeutic (Therapeutic Multivitamin) 1 ea DAILY ORAL 06/21/18 09:00 07/21/18 08:59 06/22/18 08:24 Pyrazinamide (Pza) 1,000 mg DAILY GT 06/20/18 18:00 07/20/18 17:59 06/22/18 08:27 Pyridoxine HCl (Vitamin B6) 50 mg DAILY GT 06/21/18 09:00 07/21/18 08:59 06/22/18 08:24 Rifampin (Rifadin) 600 mg DAILY GT 06/20/18 18:00 07/20/18 17:59 06/22/18 08:26 Tamsulosin HCl (Flomax) 0.4 mg BEDTIME ORAL 06/20/18 21:00 07/20/18 20:59 06/21/18 20:55 Rahul Shen MD Jun 22, 2018 09:38
--- NOTE | 2018-06-22 10:04 | Pulmonology Progress Note ---
Assessment/Plan Assessment/Plan IMPRESSION: Respiratory failure, evidence of hospital-acquired pneumonia, tracheostomy G-tube, transaminitis, severe protein-calorie malnutrition, chronic encephalopathy, chronic respiratory failure, leukocytosis, possible sepsis, anemia, and history of seizure disorder. PLAN vent same continue as is antibiotics care noted and reviewed monitor wbc for change; cultures reviewed wound care feeds remains guarded and prognosis poor overall impression, plan, and exam edited and reviewed in detail care discussed with RN Subjective ROS Limited/Unobtainable: Yes Allergies: Coded Allergies: No Known Allergies (Unverified , 01/27/17) Subjective care noted vent noted noted and reviewed Objective Last 24 Hour Vital Signs Date Time Temp Pulse Resp B/P (MAP) Pulse Ox O2 Delivery O2 Flow Rate FiO2 06/22/18 08:40 87 21 30 06/22/18 08:25 93 132/73 06/22/18 08:22 93 132/73 06/22/18 08:00 98.2 93 25 132/73 (92) 99 06/22/18 08:00 90 06/22/18 07:01 82 12 100 Mechanical Ventilator 30 06/22/18 06:59 83 26 30 06/22/18 06:54 83 12 100 Mechanical Ventilator 30 06/22/18 05:24 82 27 30 06/22/18 04:00 30 06/22/18 04:00 83 06/22/18 04:00 Mechanical Ventilator 06/22/18 04:00 98.6 75 22 133/62 (85) 100 06/22/18 03:09 75 25 100 Mechanical Ventilator 30 06/22/18 02:59 73 25 30 06/22/18 02:59 73 26 97 Mechanical Ventilator 30 06/22/18 01:07 73 23 30 06/22/18 00:00 Mechanical Ventilator 06/22/18 00:00 30 06/22/18 00:00 98.4 88 22 146/66 (92) 100 06/22/18 00:00 77 06/21/18 23:07 79 24 100 Mechanical Ventilator 30 06/21/18 22:57 76 23 30 06/21/18 22:57 76 23 99 Mechanical Ventilator 30 06/21/18 20:55 113 144/66 06/21/18 20:47 113 29 30 06/21/18 20:23 98.2 06/21/18 20:00 98.6 86 26 144/66 (92) 100 06/21/18 20:00 30 18 20:00 Mechanical Ventilator 06/21/18 20:00 104 18 19:45 103 24 100 Mechanical Ventilator 30 18 19:35 100 26 30 18 19:35 100 24 98 Mechanical Ventilator 30 06/21/18 17:05 103 24 30 06/21/18 16:00 Mechanical Ventilator 06/21/18 16:00 91 06/21/18 16:00 30 18 15:40 97 24 100 Mechanical Ventilator 30 18 15:24 98.2 86 26 127/66 (86) 100 06/21/18 15:19 86 24 99 Mechanical Ventilator 30 06/21/18 15:18 84 24 30 06/21/18 14:01 87 23 30 06/21/18 12:00 30 06/21/18 12:00 98.2 89 25 116/58 (77) 99 06/21/18 12:00 88 06/21/18 12:00 Mechanical Ventilator 06/21/18 11:22 91 23 100 Mechanical Ventilator 30 06/21/18 11:11 83 23 98 Mechanical Ventilator 30 06/21/18 11:10 89 24 30 Intake and Output 06/21/18 06/22/18 19:00 07:00 Intake Total 1135 ml 1080 ml Output Total 350 ml 600 ml Balance 785 ml 480 ml Intake Free Water 290 ml 250 ml IV Total 110 ml 55 ml Tube Feeding 735 ml 715 ml Other 60 ml Output Urine Total 350 ml 600 ml # Bowel Movements 2 Objective GENERAL: A well-developed male, chronically ill and thin. HEENT: Fairly negative. NECK: Supple. No adenopathy. LUNGS: Scattered rhonchi. Moderate air entry. CARDIAC: S1 and S2. Regular rate and rhythm without murmurs, rubs, or gallops. ABDOMEN: Soft, nontender, and nondistended. G-tube in place. EXTREMITIES: No cyanosis or clubbing. There are some contractures. Tracheostomy in place. G-tube in place. SKIN: Noted and reviewed. Microbiology Date/Time Source Procedure Growth Status 06/20/18 09:35 Blood Blood Culture - Preliminary NO GROWTH AFTER 24 HOURS Resulted 06/20/18 09:20 Blood Blood Culture - Preliminary NO GROWTH AFTER 24 HOURS Resulted 06/20/18 10:40 Nasal Nares MRSA Culture - Final NO METHICILLIN RESISTANT STAPH AUREUS... Complete 06/20/18 09:40 Nasal Nares Influenza Types A,B Antigen (CASSIA) - Final Complete 06/22/18 01:00 Stool Clostridium difficile Toxin Assay - Final Complete 06/20/18 15:00 Urine,Clean Catch Urine Culture - Preliminary Escherichia Coli - Esbl Gram Negative Bacillus 2 Resulted Laboratory Tests 06/22/18 03:50: White Blood Count 14.1H, Red Blood Count 3.59L, Hemoglobin 9.2L, Hematocrit 28.8L, Mean Corpuscular Volume 80, Mean Corpuscular Hemoglobin 25.6L, Mean Corpuscular Hemoglobin Concent 31.9L, Red Cell Distribution Width 16.4H, Platelet Count 296, Mean Platelet Volume 5.1L, Neutrophils (%) (Auto) 83.0H, Lymphocytes (%) (Auto) 6.7L, Monocytes (%) (Auto) 9.4, Eosinophils (%) (Auto) 0.5, Basophils (%) (Auto) 0.4, Sodium Level 144, Potassium Level 4.3, Chloride Level 106, Carbon Dioxide Level 30, Anion Gap 8, Blood Urea Nitrogen 30H, Creatinine 0.5L, Estimat Glomerular Filtration Rate , Glucose Level 76, Calcium Level 9.4, Total Bilirubin 1.3H, Direct Bilirubin 1.0H, Aspartate Amino Transf ( AST/SGOT) 30, Alanine Aminotransferase (ALT/SGPT) 9L, Alkaline Phosphatase 327H , Total Protein 7.0, Albumin 1.5L, Globulin 5.5, Albumin/Globulin Ratio 0.3L Current Medications Medications (Trade) Dose Ordered Sig/Iram Route PRN Reason Start Time Stop Time Status Last Admin Dose Admin Acetaminophen (Tylenol) 650 mg Q4H PRN GT Fever/Headache/Mild Pain 06/21/18 02:00 07/20/18 17:59 06/21/18 19:53 Albuterol/ Ipratropium (Albuterol/ Ipratropium) 3 ml Q4HRT HHN 06/21/18 03:00 06/25/18 20:59 06/22/18 07:02 Amlodipine Besylate (Norvasc) 10 mg DAILY GT 06/21/18 09:00 07/21/18 08:59 06/22/18 08:25 Artificial Tears (Akwa-Tears) 2 drop FIVE TIMES A DAY PRN BOTH EYES Dry Eyes 06/20/18 18:00 07/20/18 17:59 Ascorbic Acid (Vitamin C) 250 mg DAILY GT 06/21/18 09:00 07/21/18 08:59 06/22/18 08:25 Aspirin (ASA) 81 mg DAILY GT 06/21/18 09:00 07/21/18 08:59 06/22/18 08:24 Atorvastatin Calcium (Lipitor) 10 mg BEDTIME GT 06/20/18 21:00 07/20/18 20:59 06/21/18 20:54 Doxazosin Mesylate (Cardura) 1 mg DAILY GT 06/21/18 09:00 07/21/18 08:59 06/22/18 08:25 Heparin Sodium (Porcine) (Heparin 5000 units/ml) 5,000 units EVERY 12 HOURS SUBQ 06/20/18 21:00 07/20/18 20:59 06/22/18 08:31 Isoniazid (Inh) 300 mg DAILY GT 06/20/18 18:00 07/20/18 17:59 06/22/18 08:27 Lansoprazole (Prevacid) 30 mg Q12HR GT 06/20/18 21:00 07/20/18 20:59 06/22/18 08:24 Levetiracetam (Keppra) 750 mg EVERY 12 HOURS GT 06/20/18 21:00 07/20/18 20:59 06/22/18 08:30 Meropenem 1 gm/ Sodium Chloride 55 ml @ 110 mls/hr Q8H IVPB 06/20/18 18:00 06/25/18 17:59 06/22/18 09:55 Metoprolol Tartrate (Lopressor) 50 mg Q12HR GT 06/20/18 21:00 07/20/18 20:59 06/22/18 08:22 Minocycline HCl (Minocin) 100 mg Q12HR ORAL 06/20/18 21:00 06/27/18 20:59 06/22/18 08:28 Multivitamins Therapeutic (Therapeutic Multivitamin) 1 ea DAILY ORAL 06/21/18 09:00 07/21/18 08:59 06/22/18 08:24 Pyrazinamide (Pza) 1,000 mg DAILY GT 06/20/18 18:00 07/20/18 17:59 06/22/18 08:27 Pyridoxine HCl (Vitamin B6) 50 mg DAILY GT 06/21/18 09:00 07/21/18 08:59 06/22/18 08:24 Rifampin (Rifadin) 600 mg DAILY GT 06/20/18 18:00 07/20/18 17:59 06/22/18 08:26 Tamsulosin HCl (Flomax) 0.4 mg BEDTIME ORAL 06/20/18 21:00 07/20/18 20:59 06/21/18 20:55 Nakul Cisse MD Jun 22, 2018 10:04
[2018-06-22 12:00] VITALS: BP 131/72
[2018-06-22 16:18] VITALS: BP 133/63
[2018-06-22 20:00] VITALS: BP 144/69
[2018-06-22] MEDS: Tamsulosin 0.4mg cap ORAL SCH (21:55)
[2018-06-23] VITALS: BP 145/73
[2018-06-23] MEDS: Meropenem 1 GM in NS 55 ML IVPB SCH ×3 (02:17→17:27)
[2018-06-23] MEDS: Albuterol/Ipratropium 3ml neb HHN SCH ×6 (03:27→22:50)
[2018-06-23 04:00] VITALS: BP 149/71
--- NOTE | 2018-06-23 07:45 | General Progress Note ---
Assessment/Plan Problem List: (1) UTI (urinary tract infection), bacterial ICD Codes: N39.0 - Urinary tract infection, site not specified; A49.9 - Bacterial infection, unspecified SNOMED: 685186373 (2) HTN (hypertension) ICD Codes: I10 - Essential (primary) hypertension SNOMED: 77635281 (3) Aspiration pneumonia ICD Codes: J69.0 - Pneumonitis due to inhalation of food and vomit SNOMED: 188014371 (4) Sepsis ICD Codes: A41.9 - Sepsis, unspecified organism SNOMED: 18862923 (5) Encephalopathy ICD Codes: G93.40 - Encephalopathy, unspecified SNOMED: 79128503 (6) Encephalopathy acute ICD Codes: G93.40 - Encephalopathy, unspecified SNOMED: 62955105, 661874758 (7) BPH (benign prostatic hyperplasia) ICD Codes: N40.0 - Benign prostatic hyperplasia without lower urinary tract symptoms SNOMED: 625708577, 783587621 (8) Probable sepsis ICD Codes: A41.9 - Sepsis, unspecified organism SNOMED: 887686431 Status: stable, progressing Assessment/Plan iv abx vent resp rx gt feeds wound care mcintyre for wound care management sz rx TB meds dc planning if ok with all Subjective ROS Limited/Unobtainable: Yes Constitutional: Reports: malaise, weakness HEENT: Reports: no symptoms Cardiovascular: Reports: no symptoms Respiratory: Reports: cough Gastrointestinal/Abdominal: Reports: difficulty swallowing Genitourinary: Reports: no symptoms Neurologic/Psychiatric: Reports: pre-existing deficit, seizure Endocrine: Reports: no symptoms Hematologic/Lymphatic: Reports: anemia Allergies: Coded Allergies: No Known Allergies (Unverified , 01/27/17) All Systems: reviewed and negative except above Subjective no events. stable. no fevers. no szs. on iv abx. tolerating feeds ucx with esbl ecoli. Objective Last 24 Hour Vital Signs Date Time Temp Pulse Resp B/P (MAP) Pulse Ox O2 Delivery O2 Flow Rate FiO2 06/23/18 05:13 77 33 30 06/23/18 04:00 70 06/23/18 04:00 30 06/23/18 04:00 98.4 78 30 149/71 (97) 100 06/23/18 04:00 Mechanical Ventilator 06/23/18 03:32 60 12 100 Mechanical Ventilator 30 18 03:28 67 19 100 Mechanical Ventilator 30 06/23/18 03:27 71 25 30 06/23/18 01:04 74 22 30 18 00:00 Mechanical Ventilator 18 00:00 78 18 00:00 98.2 68 28 145/73 (97) 100 18 00:00 30 18 23:33 76 24 100 Mechanical Ventilator 30 18 23:25 68 20 100 Mechanical Ventilator 30 06/22/18 23:24 64 20 30 06/22/18 21:55 74 144/69 06/22/18 21:18 74 20 30 18 20:00 78 06/22/18 20:00 30 18 20:00 Mechanical Ventilator 18 20:00 98.6 86 31 144/69 (94) 100 18 19:30 84 30 100 Mechanical Ventilator 30 18 19:24 76 22 100 Mechanical Ventilator 30 18 19:23 75 22 30 06/22/18 17:21 82 26 30 06/22/18 16:18 98.1 85 24 133/63 (86) 100 18 16:04 30 18 16:03 Mechanical Ventilator 06/22/18 16:00 88 18 14:56 76 24 99 Mechanical Ventilator 30 18 14:55 78 26 30 06/22/18 14:50 75 25 99 Mechanical Ventilator 30 18 12:36 77 23 30 18 12:00 98.1 76 25 131/72 (91) 100 18 12:00 30 18 12:00 84 18 12:00 Mechanical Ventilator 18 10:30 80 13 30 06/22/18 10:29 81 13 100 Mechanical Ventilator 30 18 10:25 82 13 100 Mechanical Ventilator 30 18 08:40 87 21 30 06/22/18 08:25 93 132/73 18/18 08:22 93 132/73 18 08:00 98.2 93 25 132/73 (92) 99 18 08:00 90 11/18/18 08:00 30 06/22/18 08:00 Mechanical Ventilator Intake and Output 06/22/18 06/23/18 18:59 06:59 Intake Total 1200 ml 925 ml Output Total 600 ml 800 ml Balance 600 ml 125 ml Intake Free Water 200 ml 90 ml IV Total 220 ml 55 ml Tube Feeding 780 ml 780 ml Output Urine Total 600 ml 600 ml Stool Total 200 ml # Bowel Movements 4 Height (Feet): 5 Height (Inches): 8.00 Weight (Pounds): 129 Objective General Appearance: WD/WN, lethargic, confused Neck: supple Cardiovascular: normal rate, regular rhythm Respiratory/Chest: chest wall non-tender, lungs clear, normal breath sounds, no respiratory distress Abdomen: normal bowel sounds, non tender, soft, no organomegaly Edema: no edema noted Arm (L), no edema noted Arm (R), no edema noted Leg (L), no edema noted Leg (R), no edema noted Pedal (L), no edema noted Pedal (R), no edema noted Generalized Neurologic: unresponsive, aphasia Jarrod Vásquez MD Jun 23, 2018 07:45
[2018-06-23 08:00] VITALS: BP 133/61
--- NOTE | 2018-06-23 08:33 | Pulmonology Progress Note ---
Assessment/Plan Assessment/Plan IMPRESSION: Respiratory failure, evidence of hospital-acquired pneumonia, tracheostomy G-tube, transaminitis, severe protein-calorie malnutrition, chronic encephalopathy, chronic respiratory failure, leukocytosis, possible sepsis, anemia, and history of seizure disorder. UTI PLAN vent same; no change on AC continue as is antibiotics noted care noted and reviewed monitor wbc for change; cultures reviewed wound care feeds remains guarded and prognosis poor overall ok to dc to snf per pulmonary impression, plan, and exam edited and reviewed in detail care discussed with RN Subjective ROS Limited/Unobtainable: Yes Allergies: Coded Allergies: No Known Allergies (Unverified , 01/27/17) Subjective care noted vent noted cultures noted noted and reviewed Objective Last 24 Hour Vital Signs Date Time Temp Pulse Resp B/P (MAP) Pulse Ox O2 Delivery O2 Flow Rate FiO2 06/23/18 08:07 72 22 100 Mechanical Ventilator 30 06/23/18 07:29 70 29 30 06/23/18 05:13 77 33 30 06/23/18 04:00 70 06/23/18 04:00 30 06/23/18 04:00 98.4 78 30 149/71 (97) 100 06/23/18 04:00 Mechanical Ventilator 06/23/18 03:32 60 12 100 Mechanical Ventilator 30 06/23/18 03:28 67 19 100 Mechanical Ventilator 30 06/23/18 03:27 71 25 30 06/23/18 01:04 74 22 30 06/23/18 00:00 Mechanical Ventilator 06/23/18 00:00 78 06/23/18 00:00 98.2 68 28 145/73 (97) 100 06/23/18 00:00 30 06/22/18 23:33 76 24 100 Mechanical Ventilator 30 06/22/18 23:25 68 20 100 Mechanical Ventilator 30 06/22/18 23:24 64 20 30 06/22/18 21:55 74 144/69 06/22/18 21:18 74 20 30 06/22/18 20:00 78 06/22/18 20:00 30 06/22/18 20:00 Mechanical Ventilator 06/22/18 20:00 98.6 86 31 144/69 (94) 100 06/22/18 19:30 84 30 100 Mechanical Ventilator 30 06/22/18 19:24 76 22 100 Mechanical Ventilator 30 06/22/18 19:23 75 22 30 06/22/18 17:21 82 26 30 06/22/18 16:18 98.1 85 24 133/63 (86) 100 06/22/18 16:04 30 06/22/18 16:03 Mechanical Ventilator 06/22/18 16:00 88 06/22/18 14:56 76 24 99 Mechanical Ventilator 30 06/22/18 14:55 78 26 30 06/22/18 14:50 75 25 99 Mechanical Ventilator 30 06/22/18 12:36 77 23 30 06/22/18 12:00 98.1 76 25 131/72 (91) 100 06/22/18 12:00 30 06/22/18 12:00 84 06/22/18 12:00 Mechanical Ventilator 06/22/18 10:30 80 13 30 06/22/18 10:29 81 13 100 Mechanical Ventilator 30 06/22/18 10:25 82 13 100 Mechanical Ventilator 30 06/22/18 08:40 87 21 30 Intake and Output 06/22/18 06/23/18 18:59 06:59 Intake Total 1200 ml 925 ml Output Total 600 ml 800 ml Balance 600 ml 125 ml Intake Free Water 200 ml 90 ml IV Total 220 ml 55 ml Tube Feeding 780 ml 780 ml Output Urine Total 600 ml 600 ml Stool Total 200 ml # Bowel Movements 4 Objective GENERAL: A well-developed male, chronically ill and thin. HEENT: Fairly negative. NECK: Supple. No adenopathy. LUNGS: minimal rhonchi. Moderate air entry. CARDIAC: S1 and S2. Regular rate and rhythm without murmurs, rubs, or gallops. ABDOMEN: Soft, nontender, and nondistended. G-tube in place. no HSM EXTREMITIES: No cyanosis or clubbing. There are some contractures. Tracheostomy in place. G-tube in place. SKIN: Noted and reviewed. reviewed and edited Microbiology Date/Time Source Procedure Growth Status 06/20/18 09:35 Blood Blood Culture - Preliminary NO GROWTH AFTER 48 HOURS Resulted 06/20/18 09:20 Blood Blood Culture - Preliminary NO GROWTH AFTER 48 HOURS Resulted 06/20/18 19:50 Sputum Expectorated Gram Stain - Final Resulted 06/20/18 19:50 Sputum Culture - Preliminary Pseudomonas Aeruginosa - Mdr Resulted 06/20/18 10:40 Nasal Nares MRSA Culture - Final NO METHICILLIN RESISTANT STAPH AUREUS... Complete 06/20/18 09:40 Nasal Nares Influenza Types A,B Antigen (CASSIA) - Final Complete 06/22/18 01:00 Stool Clostridium difficile Toxin Assay - Final Complete 06/20/18 15:00 Urine,Clean Catch Urine Culture - Preliminary Escherichia Coli - Esbl A.baumanii Complx - Mdr Streptococcus Species Resulted Current Medications Medications (Trade) Dose Ordered Sig/Iram Route PRN Reason Start Time Stop Time Status Last Admin Dose Admin Acetaminophen (Tylenol) 650 mg Q4H PRN GT Fever/Headache/Mild Pain 06/21/18 02:00 07/20/18 17:59 06/21/18 19:53 Albuterol/ Ipratropium (Albuterol/ Ipratropium) 3 ml Q4HRT HHN 06/21/18 03:00 06/25/18 20:59 06/23/18 08:06 Amlodipine Besylate (Norvasc) 10 mg DAILY GT 06/21/18 09:00 07/21/18 08:59 06/22/18 08:25 Artificial Tears (Akwa-Tears) 2 drop FIVE TIMES A DAY PRN BOTH EYES Dry Eyes 06/20/18 18:00 07/20/18 17:59 Ascorbic Acid (Vitamin C) 250 mg DAILY GT 06/21/18 09:00 07/21/18 08:59 06/22/18 08:25 Aspirin (ASA) 81 mg DAILY GT 06/21/18 09:00 07/21/18 08:59 06/22/18 08:24 Atorvastatin Calcium (Lipitor) 10 mg BEDTIME GT 06/20/18 21:00 07/20/18 20:59 06/22/18 21:54 Doxazosin Mesylate (Cardura) 1 mg DAILY GT 06/21/18 09:00 07/21/18 08:59 06/22/18 08:25 Heparin Sodium (Porcine) (Heparin 5000 units/ml) 5,000 units EVERY 12 HOURS SUBQ 06/20/18 21:00 07/20/18 20:59 06/22/18 22:00 Isoniazid (Inh) 300 mg DAILY GT 06/20/18 18:00 07/20/18 17:59 06/22/18 08:27 Lansoprazole (Prevacid) 30 mg Q12HR GT 06/20/18 21:00 07/20/18 20:59 06/22/18 21:54 Levetiracetam (Keppra) 750 mg EVERY 12 HOURS GT 06/20/18 21:00 07/20/18 20:59 06/22/18 21:54 Meropenem 1 gm/ Sodium Chloride 55 ml @ 110 mls/hr Q8H IVPB 06/20/18 18:00 06/25/18 17:59 06/23/18 02:17 Metoprolol Tartrate (Lopressor) 50 mg Q12HR GT 06/20/18 21:00 07/20/18 20:59 06/22/18 21:55 Minocycline HCl (Minocin) 100 mg Q12HR ORAL 06/20/18 21:00 06/27/18 20:59 06/22/18 21:55 Multivitamins Therapeutic (Therapeutic Multivitamin) 1 ea DAILY ORAL 06/21/18 09:00 07/21/18 08:59 06/22/18 08:24 Pyrazinamide (Pza) 1,000 mg DAILY GT 06/20/18 18:00 07/20/18 17:59 06/22/18 08:27 Pyridoxine HCl (Vitamin B6) 50 mg DAILY GT 06/21/18 09:00 07/21/18 08:59 06/22/18 08:24 Rifampin (Rifadin) 600 mg DAILY GT 06/20/18 18:00 07/20/18 17:59 06/22/18 08:26 Tamsulosin HCl (Flomax) 0.4 mg BEDTIME ORAL 06/20/18 21:00 07/20/18 20:59 06/22/18 21:55 Nakul Cisse MD Jun 23, 2018 08:33
[2018-06-23] MEDS: levETIRAcetam 500mg/5ml Liquid GT SCH ×2 (09:36→20:43)
[2018-06-23] MEDS: Isoniazid 300mg tab GT SCH (09:36)
[2018-06-23] MEDS: Minocycline HCl 50mg cap ORAL SCH ×2 (09:36→20:41)
[2018-06-23] MEDS: Doxazosin 1mg Tab GT SCH (09:37)
[2018-06-23] MEDS: Multivitamin w/Minerals tab ORAL SCH (09:37)
[2018-06-23] MEDS: Pyridoxine 50mg tab GT SCH (09:37)
[2018-06-23] MEDS: Ascorbic Acid 500mg tab GT SCH (09:37)
[2018-06-23] MEDS: Aspirin Baby 81mg GT SCH (09:37)
[2018-06-23] MEDS: Metoprolol Tartrate 50mg tab GT SCH ×2 (09:37→20:42)
[2018-06-23] MEDS: Heparin 5000 units/ml inj SUBQ SCH ×2 (09:39→20:55)
--- NOTE | 2018-06-23 11:03 | Infectious Diseases Prog Note ---
"Assessment/Plan Assessment/Plan antibiotics : isoniazid, rifampin, pyrazinamide, pyridoxine meropenem 11.16.18- doxycycline 11,16,18 - A 1. pseudomonas pneumonia 2. e.coli | acenitobacter | streptococcus UTI 3. pulmonary TB 4. respiratory failure 5. seizures 6. leucocytosis improving P 1. continue meropenem, doxycycline until tomorrow 2. continue isoniazid, rifampin, pyrazinamide, pyridoxine 3. start iv cefepime 4. will follow up cultures Subjective ROS Limited/Unobtainable: Yes Allergies: Coded Allergies: No Known Allergies (Unverified , 01/27/17) Objective Vital Signs Last 24 Hour Vital Signs Date Time Temp Pulse Resp B/P (MAP) Pulse Ox O2 Delivery O2 Flow Rate FiO2 06/23/18 09:37 82 133/61 06/23/18 09:37 82 133/61 06/23/18 08:45 82 17 30 06/23/18 08:17 88 22 100 Mechanical Ventilator 30 06/23/18 08:07 72 22 100 Mechanical Ventilator 30 06/23/18 08:00 98.4 79 28 133/61 (85) 100 06/23/18 07:29 70 29 30 06/23/18 05:13 77 33 30 06/23/18 04:00 70 06/23/18 04:00 30 06/23/18 04:00 98.4 78 30 149/71 (97) 100 06/23/18 04:00 Mechanical Ventilator 06/23/18 03:32 60 12 100 Mechanical Ventilator 30 06/23/18 03:28 67 19 100 Mechanical Ventilator 30 06/23/18 03:27 71 25 30 06/23/18 01:04 74 22 30 06/23/18 00:00 Mechanical Ventilator 06/23/18 00:00 78 06/23/18 00:00 98.2 68 28 145/73 (97) 100 06/23/18 00:00 30 06/22/18 23:33 76 24 100 Mechanical Ventilator 30 06/22/18 23:25 68 20 100 Mechanical Ventilator 30 06/22/18 23:24 64 20 30 06/22/18 21:55 74 144/69 06/22/18 21:18 74 20 30 06/22/18 20:00 78 06/22/18 20:00 30 06/22/18 20:00 Mechanical Ventilator 06/22/18 20:00 98.6 86 31 144/69 (94) 100 06/22/18 19:30 84 30 100 Mechanical Ventilator 30 06/22/18 19:24 76 22 100 Mechanical Ventilator 30 18 19:23 75 22 30 06/22/18 17:21 82 26 30 06/22/18 16:18 98.1 85 24 133/63 (86) 100 06/22/18 16:04 30 06/22/18 16:03 Mechanical Ventilator 06/22/18 16:00 88 06/22/18 14:56 76 24 99 Mechanical Ventilator 30 06/22/18 14:55 78 26 30 06/22/18 14:50 75 25 99 Mechanical Ventilator 30 06/22/18 12:36 77 23 30 06/22/18 12:00 98.1 76 25 131/72 (91) 100 06/22/18 12:00 30 06/22/18 12:00 84 06/22/18 12:00 Mechanical Ventilator Height (Feet): 5 Height (Inches): 8.00 Weight (Pounds): 129 HEENT: status post trach Respiratory/Chest: lungs clear Cardiovascular: normal rate, regular rhythm, no gallop/murmur Abdomen: soft, non tender, other - GT Extremities: no edema Microbiology Date/Time Source Procedure Growth Status 06/20/18 19:50 Sputum Expectorated Gram Stain - Final Resulted 06/20/18 19:50 Sputum Culture - Preliminary Pseudomonas Aeruginosa - Mdr Resulted 06/22/18 01:00 Stool Clostridium difficile Toxin Assay - Final Complete 06/20/18 15:00 Urine,Clean Catch Urine Culture - Preliminary Escherichia Coli - Esbl A.baumanii Complx - Mdr Streptococcus Species Resulted Current Medications Medications (Trade) Dose Ordered Sig/Iram Route PRN Reason Start Time Stop Time Status Last Admin Dose Admin Acetaminophen (Tylenol) 650 mg Q4H PRN GT Fever/Headache/Mild Pain 06/21/18 02:00 07/20/18 17:59 06/21/18 19:53 Albuterol/ Ipratropium (Albuterol/ Ipratropium) 3 ml Q4HRT HHN 06/21/18 03:00 06/25/18 20:59 06/23/18 08:06 Amlodipine Besylate (Norvasc) 10 mg DAILY GT 06/21/18 09:00 07/21/18 08:59 06/23/18 09:37 Artificial Tears (Akwa-Tears) 2 drop FIVE TIMES A DAY PRN BOTH EYES Dry Eyes 06/20/18 18:00 07/20/18 17:59 Ascorbic Acid (Vitamin C) 250 mg DAILY GT 06/21/18 09:00 07/21/18 08:59 06/23/18 09:37 Aspirin (ASA) 81 mg DAILY GT 06/21/18 09:00 07/21/18 08:59 06/23/18 09:37 Atorvastatin Calcium (Lipitor) 10 mg BEDTIME GT 06/20/18 21:00 07/20/18 20:59 06/22/18 21:54 Doxazosin Mesylate (Cardura) 1 mg DAILY GT 06/21/18 09:00 07/21/18 08:59 06/23/18 09:37 Heparin Sodium (Porcine) (Heparin 5000 units/ml) 5,000 units EVERY 12 HOURS SUBQ 06/20/18 21:00 07/20/18 20:59 06/23/18 09:39 Isoniazid (Inh) 300 mg DAILY GT 06/20/18 18:00 07/20/18 17:59 06/23/18 09:36 Lansoprazole (Prevacid) 30 mg Q12HR GT 06/20/18 21:00 07/20/18 20:59 06/23/18 09:36 Levetiracetam (Keppra) 750 mg EVERY 12 HOURS GT 06/20/18 21:00 07/20/18 20:59 06/23/18 09:36 Meropenem 1 gm/ Sodium Chloride 55 ml @ 110 mls/hr Q8H IVPB 06/20/18 18:00 06/25/18 17:59 06/23/18 09:35 Metoprolol Tartrate (Lopressor) 50 mg Q12HR GT 06/20/18 21:00 07/20/18 20:59 06/23/18 09:37 Minocycline HCl (Minocin) 100 mg Q12HR ORAL 06/20/18 21:00 06/27/18 20:59 06/23/18 09:36 Multivitamins Therapeutic (Therapeutic Multivitamin) 1 ea DAILY ORAL 06/21/18 09:00 07/21/18 08:59 06/23/18 09:37 Pyrazinamide (Pza) 1,000 mg DAILY GT 06/20/18 18:00 07/20/18 17:59 06/23/18 09:37 Pyridoxine HCl (Vitamin B6) 50 mg DAILY GT 06/21/18 09:00 07/21/18 08:59 06/23/18 09:37 Rifampin (Rifadin) 600 mg DAILY GT 06/20/18 18:00 07/20/18 17:59 06/23/18 09:36 Tamsulosin HCl (Flomax) 0.4 mg BEDTIME ORAL 06/20/18 21:00 07/20/18 20:59 06/22/18 21:55 Sergio Urban MD Jun 23, 2018 11:03"
[2018-06-23 12:00] VITALS: BP 121/56
[2018-06-23] MEDS: Cefepime HCl 2 GM in D5W 55 ML IVPB SCH ×2 (12:40→20:40)
[2018-06-23 16:00] VITALS: BP 129/64
[2018-06-23 20:00] VITALS: BP 133/70
[2018-06-23] MEDS: Tamsulosin 0.4mg cap ORAL SCH (20:41)
--- NOTE | 2018-06-23 20:45 | Consultation ---
DATE OF CONSULTATION: INFECTIOUS DISEASE ADDENDUM culture results from 03/24/2018 showing growth of Mycobacterium tuberculosis. This is susceptible to isoniazid, rifampin, pyrazinamide, ethambutol, and streptomycin. Sergio Urban M.D. DR: JOI JOB#: [id number] CC:
--- NOTE | 2018-06-23 21:30 | Progress Note ---
DATE: 06/23/2018 CARDIOLOGY PROGRESS NOTE SUBJECTIVE: The patient remains on ventilator support with secretions. Heart rate has stabilized. PHYSICAL EXAMINATION: VITAL SIGNS: Blood pressure 129/64, pulse 79, respiratory rate 26. LUNGS: Bilateral rales. Thin trach secretions. HEART: Regular rhythm rate. Normal S1, S2. There is a fourth heart sound. ABDOMEN: Soft, nontender. G-tube intact. No edema. The patient is noncommunicative. LABORATORY AND DIAGNOSTIC DATA: No new laboratory studies. IMPRESSION: 1. Sepsis. 2. Pneumonia. 3. Urinary tract infection. 4. Hypovolemia. 5. Dehydration. 6. Acute kidney injury. 7. Secondary sinus tachycardia. 8. Severe protein-calorie malnutrition. 9. Ventilator-dependent respiratory failure. 10. Dysphagia with G-tube. 11. Hypertensive heart disease. PLAN: 1. Maintain adequate hydration. 2. Continue antimicrobials. 3. Respiratory hygiene. 4. Follow up cultures and adjust antibiotics accordingly. 5. DVT prophylaxis. 6. No role for antiarrhythmics. Jones Arauz M.D. DR: Bianca JOB#: [id number] CC:
--- NOTE | 2018-06-23 22:00 | Consultation ---
DATE OF CONSULTATION: 06/22/2018 CARDIOLOGY CONSULT CONSULTING PHYSICIAN: Jones Arauz M.D. REQUESTING PHYSICIAN: Jarrod Vásquez M.D. REASON: Tachycardia. HISTORY OF PRESENT ILLNESS: This is a 72-year-old male, who has a history of chronic respiratory failure with tracheostomy, seizure disorder, and cerebrovascular disease with prior cerebrovascular accident. He has a history of hypertensive heart disease and is on active treatment for pulmonary tuberculosis. He was transferred to the hospital for evaluation of fever and tachycardia since admission. He has been started on pancultures, hydrated, and started on antimicrobials. PAST MEDICAL HISTORY: 1. Pulmonary tuberculosis. 2. Paroxysmal sinus tachycardia. 3. Seizure disorder. 4. Respiratory failure with trach. 5. Hypertension. 6. Cerebrovascular disease with a history of CVA. SOCIAL HISTORY: Prior smoker. No alcohol or substance abuse. MEDICATIONS: Reviewed and reconciled. ALLERGIES: None. FAMILY HISTORY: Noncontributory. ADVANCED DIRECTIVES: Full code. IMAGING DATA: Prior cardiovascular workup included echocardiogram with normal ejection fraction, concentric hypertrophy, and no significant valvular pathology. PHYSICAL EXAMINATION: VITAL SIGNS: Blood pressure 145/73, heart rate 78, respiratory rate 28, and afebrile, T-max 100.6 degrees. HEENT: With temporal wasting. Oropharynx clear. NECK: Supple with no jugular venous distention. Trach site with thin secretions LUNGS: Diminished breath sounds, scattered rhonchi, and bilateral rales. CARDIAC: Regular rhythm and rate. Normal S1 and S2 with a fourth heart sound. ABDOMEN: Soft and nontender. G-tube site intact. EXTREMITIES: Trace edema. NEUROLOGIC: Nonfocal. IMPRESSION: 1. Sepsis. 2. Respiratory failure with tracheostomy. 3. Healthcare-acquired pneumonia. 4. Urinary tract infection. 5. Secondary sinus tachycardia. 6. Hypertensive heart disease. 7. Paroxysmal atrial ectopy. 8. Chronic diastolic congestive heart failure. 9. Debility. 10. Pulmonary tuberculosis. 11. Moderate protein-calorie malnutrition. PLAN: 1. Maintain adequate hydration by IV route. 2. Continue nutrition by feeding tube. 3. Ventilator support. 4. Antimicrobials, await cultures. 5. Repeat chest x-ray. 6. No role for antiarrhythmic therapy. 7. Titrate antihypertensives based on clinical parameters. Jones Arauz M.D. DR: WILD JOB#: [id number] CC:
[2018-06-24] VITALS: BP 130/65
[2018-06-24] MEDS: Meropenem 1 GM in NS 55 ML IVPB SCH ×3 (02:20→18:27)
[2018-06-24] MEDS: Albuterol/Ipratropium 3ml neb HHN SCH ×6 (02:54→23:19)
[2018-06-24 04:00] VITALS: BP 133/68
[2018-06-24 05:00] LABS: BASOPHILS % (AUTO) 0.8 % (0.0-2.0); EOSINOPHILS % (AUTO) 0.7 % (0.0-3.0); HEMATOCRIT 23.2 % (42.0-52.0); HEMOGLOBIN 8.1 G/DL (14.2-18.0); LYMPHOCYTES % (AUTO) 11.1 % (20.0-45.0); MEAN CORPUSCULAR VOLUME 80 FL (80-99); MONOCYTES % (AUTO) 12.1 % (1.0-10.0); NEUTROPHILS % (AUTO) 75.3 % (45.0-75.0); PLATELET COUNT 302 K/UL (150-450); RED BLOOD COUNT 2.91 M/UL (4.70-6.10); RED CELL DISTRIBUTION WIDTH 16.1 % (11.6-14.8); WHITE BLOOD COUNT 6.1 K/UL (4.8-10.8)
[2018-06-24 05:44] LABS: ALANINE AMINOTRANSFERASE 16 U/L (12-78); ALBUMIN 1.3 G/DL (3.4-5.0); ALBUMIN/GLOBULIN RATIO 0.3 (1.0-2.7); ALKALINE PHOSPHATASE 313 U/L (46-116); ANION GAP 8 mmol/L (5-15); ASPARTATE AMINO TRANSFERASE 48 U/L (15-37); BILIRUBIN,TOTAL 0.7 MG/DL (0.2-1.0); BLOOD UREA NITROGEN 27 mg/dL (7-18); CALCIUM 8.6 MG/DL (8.5-10.1); CARBON DIOXIDE 27 MMOL/L (21-32); CHLORIDE 107 MMOL/L (98-107); CREATININE 0.6 MG/DL (0.55-1.30); POTASSIUM 4.5 MMOL/L (3.5-5.1); SODIUM 142 MMOL/L (136-145)
[2018-06-24 08:00] VITALS: BP 129/68
--- NOTE | 2018-06-24 08:32 | General Progress Note ---
Assessment/Plan Problem List: (1) UTI (urinary tract infection), bacterial ICD Codes: N39.0 - Urinary tract infection, site not specified; A49.9 - Bacterial infection, unspecified SNOMED: 415247213 (2) HTN (hypertension) ICD Codes: I10 - Essential (primary) hypertension SNOMED: 33910907 (3) Aspiration pneumonia ICD Codes: J69.0 - Pneumonitis due to inhalation of food and vomit SNOMED: 537951771 (4) Sepsis ICD Codes: A41.9 - Sepsis, unspecified organism SNOMED: 51370241 (5) Encephalopathy ICD Codes: G93.40 - Encephalopathy, unspecified SNOMED: 06445215 (6) Encephalopathy acute ICD Codes: G93.40 - Encephalopathy, unspecified SNOMED: 33287843, 537456326 (7) BPH (benign prostatic hyperplasia) ICD Codes: N40.0 - Benign prostatic hyperplasia without lower urinary tract symptoms SNOMED: 686546038, 503034431 (8) Probable sepsis ICD Codes: A41.9 - Sepsis, unspecified organism SNOMED: 697975188 Status: stable Assessment/Plan iv abx per id vent resp rx gt feeds wound care mcintyre for wound care management sz rx TB meds check iron panel and stool ob add iron rx Subjective ROS Limited/Unobtainable: Yes Constitutional: Reports: malaise, weakness HEENT: Reports: no symptoms Cardiovascular: Reports: no symptoms Respiratory: Reports: no symptoms Gastrointestinal/Abdominal: Reports: difficulty swallowing Genitourinary: Reports: no symptoms Neurologic/Psychiatric: Reports: pre-existing deficit, seizure Endocrine: Reports: no symptoms Hematologic/Lymphatic: Reports: anemia Allergies: Coded Allergies: No Known Allergies (Unverified , 01/27/17) All Systems: reviewed and negative except above Subjective no events. stable. no fevers. no szs. on iv abx. tolerating feeds ucx with esbl ecoli. ID, cards, pulm appreciated. h/h trending down. no bleeding reported. Objective Last 24 Hour Vital Signs Date Time Temp Pulse Resp B/P (MAP) Pulse Ox O2 Delivery O2 Flow Rate FiO2 06/24/18 07:06 89 29 100 Mechanical Ventilator 30 06/24/18 07:01 83 31 100 Mechanical Ventilator 30 06/24/18 06:58 83 31 30 06/24/18 05:09 85 26 30 06/24/18 04:00 92 06/24/18 04:00 30 06/24/18 04:00 98.2 80 26 133/68 (89) 100 06/24/18 04:00 Mechanical Ventilator 06/24/18 03:05 89 28 100 Mechanical Ventilator 30 06/24/18 02:55 84 27 30 06/24/18 02:54 84 27 100 Mechanical Ventilator 30 06/24/18 01:22 82 25 30 06/24/18 00:00 Mechanical Ventilator 06/24/18 00:00 98.5 80 26 130/65 (86) 100 06/24/18 00:00 81 06/23/18 22:57 76 20 100 Mechanical Ventilator 30 06/23/18 22:50 78 28 30 06/23/18 22:49 79 28 100 Mechanical Ventilator 30 06/23/18 20:42 88 133/70 06/23/18 20:32 85 30 30 06/23/18 20:00 98.1 88 26 133/70 (91) 100 06/23/18 20:00 30 06/23/18 20:00 Mechanical Ventilator 06/23/18 20:00 81 06/23/18 19:59 77 23 100 Mechanical Ventilator 30 06/23/18 19:49 76 31 100 Mechanical Ventilator 30 06/23/18 19:35 77 26 30 06/23/18 17:07 75 26 30 06/23/18 16:00 Mechanical Ventilator 06/23/18 16:00 98.1 79 26 129/64 (85) 100 06/23/18 16:00 30 18 15:20 72 27 100 Mechanical Ventilator 30 18 15:16 66 06/23/18 15:09 71 24 100 Mechanical Ventilator 30 18 15:08 71 24 30 06/23/18 13:05 72 25 30 18 12:00 30 18 12:00 Mechanical Ventilator 06/23/18 12:00 98.6 72 28 121/56 (77) 100 18 11:41 74 06/23/18 11:32 72 18 100 Mechanical Ventilator 30 18 11:22 71 24 100 Mechanical Ventilator 30 18 11:22 71 24 30 06/23/18 09:37 82 133/61 11/19/18 09:37 82 133/61 06/23/18 08:45 82 17 30 Intake and Output 06/23/18 06/24/18 18:59 06:59 Intake Total 1145 ml 835 ml Balance 1145 ml 835 ml Intake Free Water 200 ml IV Total 165 ml 55 ml Tube Feeding 780 ml 780 ml Laboratory Tests 06/24/18 04:15: White Blood Count 6.1, Red Blood Count 2.91L, Hemoglobin 8.1L, Hematocrit 23.2L , Mean Corpuscular Volume 80, Mean Corpuscular Hemoglobin 27.7, Mean Corpuscular Hemoglobin Concent 34.8, Red Cell Distribution Width 16.1H, Platelet Count 302, Mean Platelet Volume 5.4L, Neutrophils (%) (Auto) 75.3H, Lymphocytes (%) (Auto) 11.1L, Monocytes (%) (Auto) 12.1H, Eosinophils (%) (Auto ) 0.7, Basophils (%) (Auto) 0.8, Sodium Level 142, Potassium Level 4.5, Chloride Level 107, Carbon Dioxide Level 27, Anion Gap 8, Blood Urea Nitrogen 27H, Creatinine 0.6, Estimat Glomerular Filtration Rate , Glucose Level 108H, Calcium Level 8.6, Magnesium Level 1.7L, Total Bilirubin 0.7, Aspartate Amino Transf (AST/SGOT) 48H, Alanine Aminotransferase (ALT/SGPT) 16, Alkaline Phosphatase 313H, Pro-B-Type Natriuretic Peptide 1154H, Total Protein 6.2L, Albumin 1.3L, Globulin 4.9, Albumin/Globulin Ratio 0.3L Height (Feet): 5 Height (Inches): 8.00 Weight (Pounds): 129 Objective General Appearance: WD/WN, lethargic, confused Neck: supple Cardiovascular: normal rate, regular rhythm Respiratory/Chest: chest wall non-tender, lungs clear, normal breath sounds, no respiratory distress Abdomen: normal bowel sounds, non tender, soft, no organomegaly Edema: no edema noted Arm (L), no edema noted Arm (R), no edema noted Leg (L), no edema noted Leg (R), no edema noted Pedal (L), no edema noted Pedal (R), no edema noted Generalized Neurologic: unresponsive, aphasia Jarrod Vásquez MD Jun 24, 2018 08:32
--- NOTE | 2018-06-24 08:39 | Pulmonology Progress Note ---
Assessment/Plan Assessment/Plan IMPRESSION: Respiratory failure, evidence of hospital-acquired pneumonia, tracheostomy G-tube, transaminitis, severe protein-calorie malnutrition, chronic encephalopathy, chronic respiratory failure, leukocytosis, possible sepsis, anemia, and history of seizure disorder. UTI PLAN vent same; no change on AC continue as is antibiotics noted and reviewed care noted and reviewed monitor wbc for change; cultures reviewed wound care feeds tolerated remains guarded and prognosis poor overall ok to dc to snf per pulmonary impression, plan, and exam edited and reviewed in detail care discussed with RN Subjective ROS Limited/Unobtainable: Yes Allergies: Coded Allergies: No Known Allergies (Unverified , 01/27/17) Subjective care noted vent noted cultures noted noted and reviewed Objective Last 24 Hour Vital Signs Date Time Temp Pulse Resp B/P (MAP) Pulse Ox O2 Delivery O2 Flow Rate FiO2 06/24/18 07:06 89 29 100 Mechanical Ventilator 30 06/24/18 07:01 83 31 100 Mechanical Ventilator 30 06/24/18 06:58 83 31 30 06/24/18 05:09 85 26 30 06/24/18 04:00 92 06/24/18 04:00 30 06/24/18 04:00 98.2 80 26 133/68 (89) 100 06/24/18 04:00 Mechanical Ventilator 06/24/18 03:05 89 28 100 Mechanical Ventilator 30 06/24/18 02:55 84 27 30 06/24/18 02:54 84 27 100 Mechanical Ventilator 30 06/24/18 01:22 82 25 30 06/24/18 00:00 Mechanical Ventilator 06/24/18 00:00 98.5 80 26 130/65 (86) 100 06/24/18 00:00 81 06/23/18 22:57 76 20 100 Mechanical Ventilator 30 06/23/18 22:50 78 28 30 06/23/18 22:49 79 28 100 Mechanical Ventilator 30 06/23/18 20:42 88 133/70 06/23/18 20:32 85 30 30 06/23/18 20:00 98.1 88 26 133/70 (91) 100 06/23/18 20:00 30 06/23/18 20:00 Mechanical Ventilator 06/23/18 20:00 81 06/23/18 19:59 77 23 100 Mechanical Ventilator 30 06/23/18 19:49 76 31 100 Mechanical Ventilator 30 06/23/18 19:35 77 26 30 06/23/18 17:07 75 26 30 06/23/18 16:00 Mechanical Ventilator 06/23/18 16:00 98.1 79 26 129/64 (85) 100 06/23/18 16:00 30 06/23/18 15:20 72 27 100 Mechanical Ventilator 30 06/23/18 15:16 66 06/23/18 15:09 71 24 100 Mechanical Ventilator 30 06/23/18 15:08 71 24 30 06/23/18 13:05 72 25 30 06/23/18 12:00 30 06/23/18 12:00 Mechanical Ventilator 06/23/18 12:00 98.6 72 28 121/56 (77) 100 06/23/18 11:41 74 06/23/18 11:32 72 18 100 Mechanical Ventilator 30 06/23/18 11:22 71 24 100 Mechanical Ventilator 30 06/23/18 11:22 71 24 30 06/23/18 09:37 82 133/61 06/23/18 09:37 82 133/61 06/23/18 08:45 82 17 30 Intake and Output 06/23/18 06/24/18 18:59 06:59 Intake Total 1145 ml 835 ml Balance 1145 ml 835 ml Intake Free Water 200 ml IV Total 165 ml 55 ml Tube Feeding 780 ml 780 ml Objective GENERAL: A well-developed male, chronically ill and thin. HEENT: Fairly negative. NECK: Supple. No adenopathy. LUNGS: minimal rhonchi. Moderate air entry. CARDIAC: S1 and S2. Regular rate and rhythm without murmurs, rubs, or gallops. ABDOMEN: Soft, nontender, and nondistended. G-tube in place. no HSM EXTREMITIES: No cyanosis or clubbing. There are some contractures. Tracheostomy in place. G-tube in place. SKIN: Noted and reviewed. reviewed and edited Microbiology Date/Time Source Procedure Growth Status 06/22/18 01:00 Stool Clostridium difficile Toxin Assay - Final Complete Laboratory Tests 06/24/18 04:15: White Blood Count 6.1, Red Blood Count 2.91L, Hemoglobin 8.1L, Hematocrit 23.2L , Mean Corpuscular Volume 80, Mean Corpuscular Hemoglobin 27.7, Mean Corpuscular Hemoglobin Concent 34.8, Red Cell Distribution Width 16.1H, Platelet Count 302, Mean Platelet Volume 5.4L, Neutrophils (%) (Auto) 75.3H, Lymphocytes (%) (Auto) 11.1L, Monocytes (%) (Auto) 12.1H, Eosinophils (%) (Auto ) 0.7, Basophils (%) (Auto) 0.8, Sodium Level 142, Potassium Level 4.5, Chloride Level 107, Carbon Dioxide Level 27, Anion Gap 8, Blood Urea Nitrogen 27H, Creatinine 0.6, Estimat Glomerular Filtration Rate , Glucose Level 108H, Calcium Level 8.6, Magnesium Level 1.7L, Total Bilirubin 0.7, Aspartate Amino Transf (AST/SGOT) 48H, Alanine Aminotransferase (ALT/SGPT) 16, Alkaline Phosphatase 313H, Pro-B-Type Natriuretic Peptide 1154H, Total Protein 6.2L, Albumin 1.3L, Globulin 4.9, Albumin/Globulin Ratio 0.3L Current Medications Medications (Trade) Dose Ordered Sig/Iram Route PRN Reason Start Time Stop Time Status Last Admin Dose Admin Acetaminophen (Tylenol) 650 mg Q4H PRN GT Fever/Headache/Mild Pain 06/21/18 02:00 07/20/18 17:59 06/21/18 19:53 Albuterol/ Ipratropium (Albuterol/ Ipratropium) 3 ml Q4HRT HHN 06/21/18 03:00 06/25/18 20:59 06/24/18 06:58 Amlodipine Besylate (Norvasc) 10 mg DAILY GT 06/21/18 09:00 07/21/18 08:59 06/23/18 09:37 Artificial Tears (Akwa-Tears) 2 drop FIVE TIMES A DAY PRN BOTH EYES Dry Eyes 06/20/18 18:00 07/20/18 17:59 Ascorbic Acid (Vitamin C) 250 mg DAILY GT 06/21/18 09:00 07/21/18 08:59 06/23/18 09:37 Aspirin (ASA) 81 mg DAILY GT 06/21/18 09:00 07/21/18 08:59 06/23/18 09:37 Atorvastatin Calcium (Lipitor) 10 mg BEDTIME GT 06/20/18 21:00 07/20/18 20:59 06/23/18 20:41 Cefepime HCl 2 gm/ Dextrose 55 ml @ 110 mls/hr EVERY 12 HOURS IVPB 06/23/18 12:30 06/30/18 12:29 06/23/18 20:40 Doxazosin Mesylate (Cardura) 1 mg DAILY GT 06/21/18 09:00 07/21/18 08:59 06/23/18 09:37 Heparin Sodium (Porcine) (Heparin 5000 units/ml) 5,000 units EVERY 12 HOURS SUBQ 06/20/18 21:00 07/20/18 20:59 06/23/18 20:55 Iron Sucrose 100 mg/Sodium Chloride 60 ml @ 240 mls/hr BEDTIME IV 06/24/18 21:00 06/28/18 21:14 Isoniazid (Inh) 300 mg DAILY GT 06/20/18 18:00 07/20/18 17:59 06/23/18 09:36 Lansoprazole (Prevacid) 30 mg Q12HR GT 06/20/18 21:00 07/20/18 20:59 06/23/18 20:40 Levetiracetam (Keppra) 750 mg EVERY 12 HOURS GT 06/20/18 21:00 07/20/18 20:59 06/23/18 20:43 Meropenem 1 gm/ Sodium Chloride 55 ml @ 110 mls/hr Q8H IVPB 06/20/18 18:00 06/25/18 17:59 06/24/18 02:20 Metoprolol Tartrate (Lopressor) 50 mg Q12HR GT 06/20/18 21:00 07/20/18 20:59 06/23/18 20:42 Minocycline HCl (Minocin) 100 mg Q12HR ORAL 06/20/18 21:00 06/27/18 20:59 06/23/18 20:41 Multivitamins Therapeutic (Therapeutic Multivitamin) 1 ea DAILY ORAL 06/21/18 09:00 07/21/18 08:59 06/23/18 09:37 Pyrazinamide (Pza) 1,000 mg DAILY GT 06/20/18 18:00 07/20/18 17:59 06/23/18 09:37 Pyridoxine HCl (Vitamin B6) 50 mg DAILY GT 06/21/18 09:00 07/21/18 08:59 06/23/18 09:37 Rifampin (Rifadin) 600 mg DAILY GT 06/20/18 18:00 07/20/18 17:59 06/23/18 09:36 Tamsulosin HCl (Flomax) 0.4 mg BEDTIME ORAL 06/20/18 21:00 07/20/18 20:59 06/23/18 20:41 Nakul Cisse MD Jun 24, 2018 08:39
[2018-06-24] MEDS: levETIRAcetam 500mg/5ml Liquid GT SCH ×2 (10:07→20:54)
[2018-06-24] MEDS: Ascorbic Acid 500mg tab GT SCH (10:07)
[2018-06-24] MEDS: Multivitamin w/Minerals tab ORAL SCH (10:08)
[2018-06-24] MEDS: Aspirin Baby 81mg GT SCH (10:08)
[2018-06-24] MEDS: Doxazosin 1mg Tab GT SCH (10:08)
[2018-06-24] MEDS: Minocycline HCl 50mg cap ORAL SCH ×2 (10:09→20:55)
[2018-06-24] MEDS: Metoprolol Tartrate 50mg tab GT SCH ×2 (10:11→20:56)
[2018-06-24] MEDS: Cefepime HCl 2 GM in D5W 55 ML IVPB SCH ×2 (10:12→20:56)
[2018-06-24] MEDS: Isoniazid 300mg tab GT SCH (10:12)
[2018-06-24] MEDS: Pyridoxine 50mg tab GT SCH (10:19)
[2018-06-24] MEDS: Heparin 5000 units/ml inj SUBQ SCH ×2 (10:20→20:53)
[2018-06-24 12:00] VITALS: BP 139/68
[2018-06-24 16:00] VITALS: BP 138/71
--- NOTE | 2018-06-24 17:07 | Cardiology Report ---
APPROVED REPORT EKG Measurement Heart [id number] [id number] Normal sinus rhythm Normal ECG
[2018-06-24 20:00] VITALS: BP 137/70
[2018-06-24] MEDS: Tamsulosin 0.4mg cap ORAL SCH (20:56)
[2018-06-24] MEDS ORDERED: Iron Sucrose 100 MG in NS 55 ML IV SCH (21:00)
[2018-06-25] VITALS: BP 142/70
[2018-06-25] MEDS: Meropenem 1 GM in NS 55 ML IVPB SCH ×2 (01:24→09:49)
--- NOTE | 2018-06-25 03:30 | Progress Note ---
DATE: 06/24/2018 INCOMPLETE DICTATION. CARDIOLOGY PROGRESS NOTE SUBJECTIVE: No new events. The patient remains on ventilator support. Monitored rhythm, sinus. OBJECTIVE: VITAL SIGNS: Blood pressure 133/68, pulse 80, respiratory rate 26, no fevers. LUNGS: Bilateral breath sounds. Few rhonchi. HEART: Regular rhythm and rate. Normal S1 and S2. ABDOMEN: Soft. EXTREMITIES: No edema. Jones Arauz M.D. DR: PHILOMENA JOB#: [id number] CC:
[2018-06-25 04:00] VITALS: BP 153/70
[2018-06-25] MEDS: Albuterol/Ipratropium 3ml neb HHN SCH ×4 (04:28→14:50)
[2018-06-25 05:40] LABS: HEMATOCRIT 23.7 % (42.0-52.0); HEMOGLOBIN 7.9 G/DL (14.2-18.0); MEAN CORPUSCULAR VOLUME 80 FL (80-99); PLATELET COUNT 270 K/UL (150-450); RED BLOOD COUNT 2.97 M/UL (4.70-6.10); RED CELL DISTRIBUTION WIDTH 16.4 % (11.6-14.8); WHITE BLOOD COUNT 5.5 K/UL (4.8-10.8)
[2018-06-25 07:52] VITALS: BP 145/70
--- NOTE | 2018-06-25 08:24 | Pulmonology Progress Note ---
Assessment/Plan Assessment/Plan Pulmonary Progress Note Assessment/Plan IMPRESSION: Respiratory failure, evidence of hospital-acquired pneumonia, tracheostomy G-tube, transaminitis, severe protein-calorie malnutrition, chronic encephalopathy, chronic respiratory failure, leukocytosis, possible sepsis, anemia, and history of seizure disorder. UTI CXR: Infiltrates right mid and lower zone PLAN vent same; no change on AC continue as is antibiotics noted and reviewed care noted and reviewed monitor wbc for change; cultures reviewed wound care feeds tolerated remains guarded and prognosis poor overall ok to dc to snf per pulmonary impression, plan, and exam edited and reviewed in detail care discussed with RN Subjective ROS Limited/Unobtainable: Yes Allergies: Coded Allergies: No Known Allergies (Unverified , 01/27/17) Subjective care noted vent noted cultures noted noted and reviewed Objective Vital Signs Noted Objective GENERAL: A well-developed male, chronically ill and thin. HEENT: Fairly negative. NECK: Supple. No adenopathy. LUNGS: minimal rhonchi. Moderate air entry. CARDIAC: S1 and S2. Regular rate and rhythm without murmurs, rubs, or gallops. ABDOMEN: Soft, nontender, and nondistended. G-tube in place. no HSM EXTREMITIES: No cyanosis or clubbing. There are some contractures. Tracheostomy in place. G-tube in place. SKIN: Noted and reviewed. reviewed and edited Microbiology Date/Time Source Procedure Growth Status 06/22/18 01:00 Stool Clostridium difficile Toxin Assay - Final Complete Laboratory Tests 06/24/18 04:15: White Blood Count 6.1, Red Blood Count 2.91L, Hemoglobin 8.1L, Hematocrit 23.2L , Mean Corpuscular Volume 80, Mean Corpuscular Hemoglobin 27.7, Mean Corpuscular Hemoglobin Concent 34.8, Red Cell Distribution Width 16.1H, Platelet Count 302, Mean Platelet Volume 5.4L, Neutrophils (%) (Auto) 75.3H, Lymphocytes (%) (Auto) 11.1L, Monocytes (%) (Auto) 12.1H, Eosinophils (%) (Auto ) 0.7, Basophils (%) (Auto) 0.8, Sodium Level 142, Potassium Level 4.5, Chloride Level 107, Carbon Dioxide Level 27, Anion Gap 8, Blood Urea Nitrogen 27H, Creatinine 0.6, Estimat Glomerular Filtration Rate , Glucose Level 108H, Calcium Level 8.6, Magnesium Level 1.7L, Total Bilirubin 0.7, Aspartate Amino Transf (AST/SGOT) 48H, Alanine Aminotransferase (ALT/SGPT) 16, Alkaline Phosphatase 313H, Pro-B-Type Natriuretic Peptide 1154H, Total Protein 6.2L, Albumin 1.3L, Globulin 4.9, Albumin/Globulin Ratio 0.3L Current Medications Medications (Trade) Dose Ordered Sig/Iram Route PRN Reason Start Time Stop Time Status Last Admin Dose Admin Acetaminophen (Tylenol) 650 mg Q4H PRN GT Fever/Headache/Mild Pain 06/21/18 02:00 07/20/18 17:59 06/21/18 19:53 Albuterol/ Ipratropium (Albuterol/ Ipratropium) 3 ml Q4HRT HHN 06/21/18 03:00 06/25/18 20:59 06/24/18 06:58 Amlodipine Besylate (Norvasc) 10 mg DAILY GT 06/21/18 09:00 07/21/18 08:59 06/23/18 09:37 Artificial Tears (Akwa-Tears) 2 drop FIVE TIMES A DAY PRN BOTH EYES Dry Eyes 06/20/18 18:00 07/20/18 17:59 Ascorbic Acid (Vitamin C) 250 mg DAILY GT 06/21/18 09:00 07/21/18 08:59 06/23/18 09:37 Aspirin (ASA) 81 mg DAILY GT 06/21/18 09:00 07/21/18 08:59 06/23/18 09:37 Atorvastatin Calcium (Lipitor) 10 mg BEDTIME GT 06/20/18 21:00 07/20/18 20:59 06/23/18 20:41 Cefepime HCl 2 gm/ Dextrose 55 ml @ 110 mls/hr EVERY 12 HOURS IVPB 06/23/18 12:30 06/30/18 12:29 06/23/18 20:40 Doxazosin Mesylate (Cardura) 1 mg DAILY GT 06/21/18 09:00 07/21/18 08:59 06/23/18 09:37 Heparin Sodium (Porcine) (Heparin 5000 units/ml) 5,000 units EVERY 12 HOURS SUBQ 06/20/18 21:00 07/20/18 20:59 06/23/18 20:55 Iron Sucrose 100 mg/Sodium Chloride 60 ml @ 240 mls/hr BEDTIME IV 06/24/18 21:00 06/28/18 21:14 Isoniazid (Inh) 300 mg DAILY GT 06/20/18 18:00 07/20/18 17:59 06/23/18 09:36 Lansoprazole (Prevacid) 30 mg Q12HR GT 06/20/18 21:00 07/20/18 20:59 06/23/18 20:40 Levetiracetam (Keppra) 750 mg EVERY 12 HOURS GT 06/20/18 21:00 07/20/18 20:59 06/23/18 20:43 Meropenem 1 gm/ Sodium Chloride 55 ml @ 110 mls/hr Q8H IVPB 06/20/18 18:00 06/25/18 17:59 06/24/18 02:20 Metoprolol Tartrate (Lopressor) 50 mg Q12HR GT 06/20/18 21:00 07/20/18 20:59 06/23/18 20:42 Minocycline HCl (Minocin) 100 mg Q12HR ORAL 06/20/18 21:00 06/27/18 20:59 06/23/18 20:41 Multivitamins Therapeutic (Therapeutic Multivitamin) 1 ea DAILY ORAL 06/21/18 09:00 07/21/18 08:59 06/23/18 09:37 Pyrazinamide (Pza) 1,000 mg DAILY GT 06/20/18 18:00 07/20/18 17:59 06/23/18 09:37 Pyridoxine HCl (Vitamin B6) 50 mg DAILY GT 06/21/18 09:00 07/21/18 08:59 06/23/18 09:37 Rifampin (Rifadin) 600 mg DAILY GT 06/20/18 18:00 07/20/18 17:59 06/23/18 09:36 Tamsulosin HCl (Flomax) 0.4 mg BEDTIME ORAL 06/20/18 21:00 07/20/18 20:59 06/23/18 20:41 Subjective ROS Limited/Unobtainable: Yes Allergies: Coded Allergies: No Known Allergies (Unverified , 01/27/17) Objective Last 24 Hour Vital Signs Date Time Temp Pulse Resp B/P (MAP) Pulse Ox O2 Delivery O2 Flow Rate FiO2 06/25/18 08:00 Mechanical Ventilator 06/25/18 08:00 30 06/25/18 07:52 98.1 67 24 145/70 (95) 100 06/25/18 07:50 75 26 100 Mechanical Ventilator 100 06/25/18 07:48 73 24 100 Mechanical Ventilator 30 06/25/18 07:04 68 29 30 06/25/18 05:10 68 32 30 06/25/18 04:40 78 32 100 Mechanical Ventilator 30 06/25/18 04:28 68 32 100 Mechanical Ventilator 30 06/25/18 04:00 98.5 73 22 153/70 (97) 100 06/25/18 04:00 71 06/25/18 04:00 Mechanical Ventilator 06/25/18 04:00 30 06/25/18 03:12 72 31 30 06/25/18 01:10 70 28 30 06/25/18 00:00 71 06/25/18 00:00 Mechanical Ventilator 06/25/18 00:00 98.5 72 22 142/70 (94) 100 06/25/18 00:00 30 06/24/18 23:30 70 28 100 Mechanical Ventilator 30 06/24/18 23:18 74 30 100 Mechanical Ventilator 30 06/24/18 23:17 74 30 30 06/24/18 21:25 80 28 30 06/24/18 20:56 77 137/70 06/24/18 20:09 73 29 30 06/24/18 20:09 73 29 97 Mechanical Ventilator 30 06/24/18 20:00 Mechanical Ventilator 06/24/18 20:00 30 06/24/18 20:00 72 06/24/18 20:00 98.7 77 22 137/70 (92) 100 06/24/18 16:45 78 31 30 06/24/18 16:00 Mechanical Ventilator 06/24/18 16:00 30 06/24/18 16:00 98.1 71 24 138/71 (93) 100 06/24/18 15:29 73 06/24/18 14:52 79 12 100 Mechanical Ventilator 30 06/24/18 14:47 74 28 100 Mechanical Ventilator 30 06/24/18 14:47 74 28 30 06/24/18 12:54 73 29 30 06/24/18 12:00 Mechanical Ventilator 06/24/18 12:00 79 26 139/68 (91) 100 06/24/18 12:00 30 06/24/18 11:43 74 06/24/18 11:04 74 33 30 06/24/18 11:04 74 33 100 Mechanical Ventilator 30 06/24/18 10:55 79 29 100 Mechanical Ventilator 30 06/24/18 10:18 74 139/66 06/24/18 10:11 79 139/66 06/24/18 08:47 89 24 30 Intake and Output 06/24/18 06/25/18 18:59 06:59 Intake Total 1090 ml 1295 ml Output Total 2130 ml 650 ml Balance -1040 ml 645 ml Intake Free Water 200 ml 230 ml IV Total 110 ml 225 ml Tube Feeding 780 ml 780 ml Other 60 ml Output Urine Total 2130 ml 650 ml Laboratory Tests 06/24/18 09:00: Iron Level 32L 06/24/18 16:30: Stool Occult Blood [Pending] 06/25/18 04:00: White Blood Count 5.5, Red Blood Count 2.97L, Hemoglobin 7.9L, Hematocrit 23.7L , Mean Corpuscular Volume 80, Mean Corpuscular Hemoglobin 26.7L, Mean Corpuscular Hemoglobin Concent 33.3, Red Cell Distribution Width 16.4H, Platelet Count 270, Mean Platelet Volume 5.1L, Neutrophils (%) (Auto) , Lymphocytes (%) (Auto) , Monocytes (%) (Auto) , Eosinophils (%) (Auto) , Basophils (%) (Auto) , Neutrophils % (Manual) [Pending], Lymphocytes % (Manual) [Pending], Platelet Estimate [Pending], Platelet Morphology [Pending] Current Medications Medications (Trade) Dose Ordered Sig/Iram Route PRN Reason Start Time Stop Time Status Last Admin Dose Admin Acetaminophen (Tylenol) 650 mg Q4H PRN GT Fever/Headache/Mild Pain 06/21/18 02:00 07/20/18 17:59 06/21/18 19:53 Albuterol/ Ipratropium (Albuterol/ Ipratropium) 3 ml Q4HRT HHN 06/21/18 03:00 06/25/18 20:59 06/25/18 07:47 Amlodipine Besylate (Norvasc) 10 mg DAILY GT 06/21/18 09:00 07/21/18 08:59 06/24/18 10:18 Artificial Tears (Akwa-Tears) 2 drop FIVE TIMES A DAY PRN BOTH EYES Dry Eyes 06/20/18 18:00 07/20/18 17:59 Ascorbic Acid (Vitamin C) 250 mg DAILY GT 06/21/18 09:00 07/21/18 08:59 06/24/18 10:07 Aspirin (ASA) 81 mg DAILY GT 06/21/18 09:00 07/21/18 08:59 06/24/18 10:08 Atorvastatin Calcium (Lipitor) 10 mg BEDTIME GT 06/20/18 21:00 07/20/18 20:59 06/24/18 20:55 Cefepime HCl 2 gm/ Dextrose 55 ml @ 110 mls/hr EVERY 12 HOURS IVPB 06/23/18 12:30 06/30/18 12:29 06/24/18 20:56 Doxazosin Mesylate (Cardura) 1 mg DAILY GT 06/21/18 09:00 07/21/18 08:59 06/24/18 10:08 Heparin Sodium (Porcine) (Heparin 5000 units/ml) 5,000 units EVERY 12 HOURS SUBQ 06/20/18 21:00 07/20/18 20:59 06/24/18 20:53 Iron Sucrose 100 mg/Sodium Chloride 60 ml @ 240 mls/hr BEDTIME IV 06/24/18 21:00 06/28/18 21:14 06/24/18 20:57 Isoniazid (Inh) 300 mg DAILY GT 06/20/18 18:00 07/20/18 17:59 06/24/18 10:12 Lansoprazole (Prevacid) 30 mg Q12HR GT 06/20/18 21:00 07/20/18 20:59 06/24/18 20:55 Levetiracetam (Keppra) 750 mg EVERY 12 HOURS GT 06/20/18 21:00 07/20/18 20:59 06/24/18 20:54 Meropenem 1 gm/ Sodium Chloride 55 ml @ 110 mls/hr Q8H IVPB 06/20/18 18:00 06/25/18 17:59 06/25/18 01:24 Metoprolol Tartrate (Lopressor) 50 mg Q12HR GT 06/20/18 21:00 07/20/18 20:59 06/24/18 20:56 Minocycline HCl (Minocin) 100 mg Q12HR ORAL 06/20/18 21:00 06/27/18 20:59 06/24/18 20:55 Multivitamins Therapeutic (Therapeutic Multivitamin) 1 ea DAILY ORAL 06/21/18 09:00 07/21/18 08:59 06/24/18 10:08 Pyrazinamide (Pza) 1,000 mg DAILY GT 06/20/18 18:00 07/20/18 17:59 06/24/18 10:08 Pyridoxine HCl (Vitamin B6) 50 mg DAILY GT 06/21/18 09:00 07/21/18 08:59 06/24/18 10:19 Rifampin (Rifadin) 600 mg DAILY GT 06/20/18 18:00 07/20/18 17:59 06/24/18 10:09 Tamsulosin HCl (Flomax) 0.4 mg BEDTIME ORAL 06/20/18 21:00 07/20/18 20:59 06/24/18 20:56 Jones Rasmussen MD Jun 25, 2018 08:24
[2018-06-25] MEDS: Minocycline HCl 50mg cap ORAL SCH (08:39)
[2018-06-25] MEDS: Aspirin Baby 81mg GT SCH (08:40)
[2018-06-25] MEDS: Ascorbic Acid 500mg tab GT SCH (08:40)
[2018-06-25] MEDS: Pyridoxine 50mg tab GT SCH (08:40)
[2018-06-25] MEDS: levETIRAcetam 500mg/5ml Liquid GT SCH (08:40)
[2018-06-25] MEDS: Doxazosin 1mg Tab GT SCH (08:41)
[2018-06-25] MEDS: Multivitamin w/Minerals tab ORAL SCH (08:41)
[2018-06-25] MEDS: Metoprolol Tartrate 50mg tab GT SCH (08:41)
[2018-06-25] MEDS: Cefepime HCl 2 GM in D5W 55 ML IVPB SCH (08:41)
[2018-06-25] MEDS: Isoniazid 300mg tab GT SCH (08:41)
[2018-06-25] MEDS: Heparin 5000 units/ml inj SUBQ SCH (08:42)
--- NOTE | 2018-06-25 08:52 | General Progress Note ---
Assessment/Plan Problem List: (1) UTI (urinary tract infection), bacterial ICD Codes: N39.0 - Urinary tract infection, site not specified; A49.9 - Bacterial infection, unspecified SNOMED: 036736808 (2) HTN (hypertension) ICD Codes: I10 - Essential (primary) hypertension SNOMED: 44707784 (3) Aspiration pneumonia ICD Codes: J69.0 - Pneumonitis due to inhalation of food and vomit SNOMED: 105091266 (4) Sepsis ICD Codes: A41.9 - Sepsis, unspecified organism SNOMED: 06603081 (5) Encephalopathy ICD Codes: G93.40 - Encephalopathy, unspecified SNOMED: 68506831 (6) Encephalopathy acute ICD Codes: G93.40 - Encephalopathy, unspecified SNOMED: 30104258, 710691953 (7) BPH (benign prostatic hyperplasia) ICD Codes: N40.0 - Benign prostatic hyperplasia without lower urinary tract symptoms SNOMED: 871543049, 307017324 (8) Probable sepsis ICD Codes: A41.9 - Sepsis, unspecified organism SNOMED: 486089778 Status: stable, progressing Assessment/Plan iv abx per id vent resp rx gt feeds wound care mcintyre for wound care management sz rx TB meds follow up stool ob transfuse dc planning after transfusion cleared by id Subjective ROS Limited/Unobtainable: Yes Constitutional: Reports: malaise, weakness HEENT: Reports: no symptoms Cardiovascular: Reports: no symptoms Respiratory: Reports: shortness of breath Gastrointestinal/Abdominal: Reports: difficulty swallowing Genitourinary: Reports: no symptoms Neurologic/Psychiatric: Reports: pre-existing deficit, seizure Endocrine: Reports: no symptoms Hematologic/Lymphatic: Reports: anemia Allergies: Coded Allergies: No Known Allergies (Unverified , 01/27/17) All Systems: reviewed and negative except above Subjective no events. stable. no fevers. no szs. on iv abx. tolerating feeds ucx with esbl ecoli. ID, cards, pulm appreciated. h/h trending down. no bleeding reported. Objective Last 24 Hour Vital Signs Date Time Temp Pulse Resp B/P (MAP) Pulse Ox O2 Delivery O2 Flow Rate FiO2 06/25/18 08:41 67 145/70 06/25/18 08:41 67 145/70 06/25/18 08:00 Mechanical Ventilator 06/25/18 08:00 30 11/21/18 07:52 98.1 67 24 145/70 (95) 100 06/25/18 07:50 75 26 100 Mechanical Ventilator 100 06/25/18 07:48 73 24 100 Mechanical Ventilator 30 06/25/18 07:04 68 29 30 06/25/18 05:10 68 32 30 06/25/18 04:40 78 32 100 Mechanical Ventilator 30 06/25/18 04:28 68 32 100 Mechanical Ventilator 30 06/25/18 04:00 98.5 73 22 153/70 (97) 100 06/25/18 04:00 71 06/25/18 04:00 Mechanical Ventilator 06/25/18 04:00 30 06/25/18 03:12 72 31 30 06/25/18 01:10 70 28 30 06/25/18 00:00 71 06/25/18 00:00 Mechanical Ventilator 06/25/18 00:00 98.5 72 22 142/70 (94) 100 06/25/18 00:00 30 06/24/18 23:30 70 28 100 Mechanical Ventilator 30 06/24/18 23:18 74 30 100 Mechanical Ventilator 30 06/24/18 23:17 74 30 30 06/24/18 21:25 80 28 30 06/24/18 20:56 77 137/70 06/24/18 20:09 73 29 30 06/24/18 20:09 73 29 97 Mechanical Ventilator 30 06/24/18 20:00 Mechanical Ventilator 06/24/18 20:00 30 06/24/18 20:00 72 06/24/18 20:00 98.7 77 22 137/70 (92) 100 06/24/18 16:45 78 31 30 06/24/18 16:00 Mechanical Ventilator 06/24/18 16:00 30 06/24/18 16:00 98.1 71 24 138/71 (93) 100 06/24/18 15:29 73 06/24/18 14:52 79 12 100 Mechanical Ventilator 30 06/24/18 14:47 74 28 100 Mechanical Ventilator 30 06/24/18 14:47 74 28 30 06/24/18 12:54 73 29 30 06/24/18 12:00 Mechanical Ventilator 06/24/18 12:00 79 26 139/68 (91) 100 11/20/18 12:00 30 06/24/18 11:43 74 06/24/18 11:04 74 33 30 06/24/18 11:04 74 33 100 Mechanical Ventilator 30 06/24/18 10:55 79 29 100 Mechanical Ventilator 30 06/24/18 10:18 74 139/66 06/24/18 10:11 79 139/66 Intake and Output 18 06/25/18 19:00 07:00 Intake Total 1090 ml 1325 ml Output Total 1680 ml 600 ml Balance -590 ml 725 ml Intake Free Water 200 ml 260 ml IV Total 110 ml 225 ml Tube Feeding 780 ml 780 ml Other 60 ml Output Urine Total 1680 ml 600 ml Laboratory Tests 06/24/18 09:00: Iron Level 32L 06/24/18 16:30: Stool Occult Blood [Pending] 06/25/18 04:00: White Blood Count 5.5, Red Blood Count 2.97L, Hemoglobin 7.9L, Hematocrit 23.7L , Mean Corpuscular Volume 80, Mean Corpuscular Hemoglobin 26.7L, Mean Corpuscular Hemoglobin Concent 33.3, Red Cell Distribution Width 16.4H, Platelet Count 270, Mean Platelet Volume 5.1L, Neutrophils (%) (Auto) , Lymphocytes (%) (Auto) , Monocytes (%) (Auto) , Eosinophils (%) (Auto) , Basophils (%) (Auto) , Differential Total Cells Counted 100, Neutrophils % ( Manual) 73, Lymphocytes % (Manual) 10L, Monocytes % (Manual) 15H, Eosinophils % (Manual) 2, Basophils % (Manual) 0, Band Neutrophils 0, Platelet Estimate Adequate, Platelet Morphology Normal, Hypochromasia 1+, Anisocytosis 1+ Height (Feet): 5 Height (Inches): 8.00 Weight (Pounds): 132 Objective General Appearance: WD/WN, lethargic, confused Neck: supple Cardiovascular: normal rate, regular rhythm Respiratory/Chest: chest wall non-tender, lungs clear, normal breath sounds, no respiratory distress Abdomen: normal bowel sounds, non tender, soft, no organomegaly Edema: no edema noted Arm (L), no edema noted Arm (R), no edema noted Leg (L), no edema noted Leg (R), no edema noted Pedal (L), no edema noted Pedal (R), no edema noted Generalized Neurologic: unresponsive, aphasia Jarrod Vásquez MD Jun 25, 2018 08:52
[2018-06-25 11:54] VITALS: BP 136/69
--- NOTE | 2018-06-25 12:10 | Infectious Diseases Prog Note ---
"Assessment/Plan Assessment/Plan antibiotics : isoniazid, rifampin, pyrazinamide, pyridoxine meropenem 18- doxycycline 11,16,18 - cefepime 06.23.18 - A 1. pseudomonas pneumonia 2. e.coli | acenitobacter | streptococcus UTI s/p rx 3. pulmonary TB 4. respiratory failure 5. seizures 6. leucocytosis improving P 1. continue cefepime 4 more days 2. d/c meropenem, doxycycline 3. continue isoniazid, rifampin, pyrazinamide, pyridoxine 4. will follow up cultures Subjective ROS Limited/Unobtainable: Yes Allergies: Coded Allergies: No Known Allergies (Unverified , 01/27/17) Objective Vital Signs Last 24 Hour Vital Signs Date Time Temp Pulse Resp B/P (MAP) Pulse Ox O2 Delivery O2 Flow Rate FiO2 06/25/18 12:00 Mechanical Ventilator 06/25/18 12:00 30 06/25/18 11:54 97.7 70 20 136/69 (91) 99 06/25/18 11:24 77 28 100 Mechanical Ventilator 100 06/25/18 11:14 65 15 30 06/25/18 11:13 67 13 100 Mechanical Ventilator 30 06/25/18 09:32 75 31 Mechanical Ventilator 100 06/25/18 09:20 75 31 30 06/25/18 08:41 67 145/70 06/25/18 08:41 67 145/70 06/25/18 08:00 76 06/25/18 08:00 Mechanical Ventilator 06/25/18 08:00 30 06/25/18 07:52 98.1 67 24 145/70 (95) 100 06/25/18 07:50 75 26 100 Mechanical Ventilator 100 06/25/18 07:48 73 24 100 Mechanical Ventilator 30 06/25/18 07:04 68 29 30 06/25/18 05:10 68 32 30 06/25/18 04:40 78 32 100 Mechanical Ventilator 30 06/25/18 04:28 68 32 100 Mechanical Ventilator 30 06/25/18 04:00 98.5 73 22 153/70 (97) 100 06/25/18 04:00 71 06/25/18 04:00 Mechanical Ventilator 06/25/18 04:00 30 06/25/18 03:12 72 31 30 06/25/18 01:10 70 28 30 06/25/18 00:00 71 06/25/18 00:00 Mechanical Ventilator 06/25/18 00:00 98.5 72 22 142/70 (94) 100 06/25/18 00:00 30 06/24/18 23:30 70 28 100 Mechanical Ventilator 30 06/24/18 23:18 74 30 100 Mechanical Ventilator 30 06/24/18 23:17 74 30 30 06/24/18 21:25 80 28 30 06/24/18 20:56 77 137/70 06/24/18 20:09 73 29 30 06/24/18 20:09 73 29 97 Mechanical Ventilator 30 06/24/18 20:00 Mechanical Ventilator 06/24/18 20:00 30 06/24/18 20:00 72 06/24/18 20:00 98.7 77 22 137/70 (92) 100 06/24/18 16:45 78 31 30 06/24/18 16:00 Mechanical Ventilator 06/24/18 16:00 30 06/24/18 16:00 98.1 71 24 138/71 (93) 100 06/24/18 15:29 73 06/24/18 14:52 79 12 100 Mechanical Ventilator 30 06/24/18 14:47 74 28 100 Mechanical Ventilator 30 06/24/18 14:47 74 28 30 06/24/18 12:54 73 29 30 Height (Feet): 5 Height (Inches): 8.00 Weight (Pounds): 132 HEENT: status post trach Respiratory/Chest: lungs clear Cardiovascular: normal rate, regular rhythm, no gallop/murmur Abdomen: soft, non tender, other - GT Extremities: no edema Laboratory Tests Test 06/24/18 16:30 06/25/18 04:00 Stool Occult Blood Positive (NEGATIVE) White Blood Count 5.5 K/UL (4.8-10.8) Red Blood Count 2.97 M/UL (4.70-6.10) L Hemoglobin 7.9 G/DL (14.2-18.0) L Hematocrit 23.7 % (42.0-52.0) L Mean Corpuscular Volume 80 FL (80-99) Mean Corpuscular Hemoglobin 26.7 PG (27.0-31.0) L Mean Corpuscular Hemoglobin Concent 33.3 G/DL (32.0-36.0) Red Cell Distribution Width 16.4 % (11.6-14.8) H Platelet Count 270 K/UL (150-450) Mean Platelet Volume 5.1 FL (6.5-10.1) L Neutrophils (%) (Auto) % (45.0-75.0) Lymphocytes (%) (Auto) % (20.0-45.0) Monocytes (%) (Auto) % (1.0-10.0) Eosinophils (%) (Auto) % (0.0-3.0) Basophils (%) (Auto) % (0.0-2.0) Differential Total Cells Counted 100 Neutrophils % (Manual) 73 % (45-75) Lymphocytes % (Manual) 10 % (20-45) L Monocytes % (Manual) 15 % (1-10) H Eosinophils % (Manual) 2 % (0-3) Basophils % (Manual) 0 % (0-2) Band Neutrophils 0 % (0-8) Platelet Estimate Adequate Platelet Morphology Normal Hypochromasia 1+ Anisocytosis 1+ Current Medications Medications (Trade) Dose Ordered Sig/Iram Route PRN Reason Start Time Stop Time Status Last Admin Dose Admin Acetaminophen (Tylenol) 650 mg Q4H PRN GT Fever/Headache/Mild Pain 06/21/18 02:00 07/20/18 17:59 06/21/18 19:53 Albuterol/ Ipratropium (Albuterol/ Ipratropium) 3 ml Q4HRT HHN 06/21/18 03:00 06/25/18 20:59 06/25/18 11:13 Amlodipine Besylate (Norvasc) 10 mg DAILY GT 06/21/18 09:00 07/21/18 08:59 06/25/18 08:41 Artificial Tears (Akwa-Tears) 2 drop FIVE TIMES A DAY PRN BOTH EYES Dry Eyes 06/20/18 18:00 07/20/18 17:59 Ascorbic Acid (Vitamin C) 250 mg DAILY GT 06/21/18 09:00 18 08:59 06/25/18 08:40 Aspirin (ASA) 81 mg DAILY GT 06/21/18 09:00 07/21/18 08:59 06/25/18 08:40 Atorvastatin Calcium (Lipitor) 10 mg BEDTIME GT 06/20/18 21:00 07/20/18 20:59 06/24/18 20:55 Cefepime HCl 2 gm/ Dextrose 55 ml @ 110 mls/hr EVERY 12 HOURS IVPB 06/23/18 12:30 06/30/18 12:29 06/25/18 08:41 Doxazosin Mesylate (Cardura) 1 mg DAILY GT 06/21/18 09:00 07/21/18 08:59 06/25/18 08:41 Heparin Sodium (Porcine) (Heparin 5000 units/ml) 5,000 units EVERY 12 HOURS SUBQ 06/20/18 21:00 07/20/18 20:59 06/24/18 20:53 Iron Sucrose 100 mg/Sodium Chloride 60 ml @ 240 mls/hr BEDTIME IV 06/24/18 21:00 06/28/18 21:14 06/24/18 20:57 Isoniazid (Inh) 300 mg DAILY GT 06/20/18 18:00 07/20/18 17:59 06/25/18 08:41 Lansoprazole (Prevacid) 30 mg Q12HR GT 06/20/18 21:00 07/20/18 20:59 06/25/18 08:40 Levetiracetam (Keppra) 750 mg EVERY 12 HOURS GT 06/20/18 21:00 07/20/18 20:59 06/25/18 08:40 Meropenem 1 gm/ Sodium Chloride 55 ml @ 110 mls/hr Q8H IVPB 06/20/18 18:00 06/25/18 17:59 06/25/18 09:49 Metoprolol Tartrate (Lopressor) 50 mg Q12HR GT 06/20/18 21:00 07/20/18 20:59 06/25/18 08:41 Minocycline HCl (Minocin) 100 mg Q12HR ORAL 06/20/18 21:00 06/27/18 20:59 06/25/18 08:39 Multivitamins Therapeutic (Therapeutic Multivitamin) 1 ea DAILY ORAL 06/21/18 09:00 07/21/18 08:59 06/25/18 08:41 Pyrazinamide (Pza) 1,000 mg DAILY GT 06/20/18 18:00 07/20/18 17:59 06/25/18 08:40 Pyridoxine HCl (Vitamin B6) 50 mg DAILY GT 06/21/18 09:00 07/21/18 08:59 06/25/18 08:40 Rifampin (Rifadin) 600 mg DAILY GT 06/20/18 18:00 07/20/18 17:59 06/25/18 08:40 Tamsulosin HCl (Flomax) 0.4 mg BEDTIME ORAL 06/20/18 21:00 07/20/18 20:59 06/24/18 20:56 Sergio Urban MD Jun 25, 2018 12:09"
[2018-06-25 16:00] VITALS: BP 146/75
[2018-06-25] MEDS ORDERED: NS 275ml ONE (18:09)
[2018-06-25] MEDS ORDERED: Sterile Water Irrig 1000ml IRRIG ONE (18:09)
[2018-06-25] MEDS ORDERED: Tubing Blood Filter IV ONE (18:09)
[2018-06-25] MEDS ORDERED: Tubing IV Secondary IV ONE (18:09)
--- NOTE | 2018-06-25 22:30 | Progress Note ---
DATE: 06/25/2018 CARDIOLOGY PROGRESS NOTE SUBJECTIVE: The patient's condition has improved. Discharge planned. He is receiving a packed red blood cell transfusion. OBJECTIVE: VITAL SIGNS: Blood pressure 145/70, pulse 67, and respiratory rate 24. LUNGS: Thin trach secretions. Bilateral breath sounds. CARDIAC: Regular rhythm and rate. Normal S1 and S2. ABDOMEN: Soft. G-tube intact. EXTREMITIES: No edema. LABORATORY DATA: White count 5.5 and hemoglobin 7.9. Chemistry panel within normal limits. Magnesium is 1.7 yesterday and replaced. IMPRESSION: 1. Acute on chronic diastolic congestive heart failure, now clinically compensated. 2. Severe protein-calorie malnutrition. 3. Hypomagnesemia with status post replacement. 4. Pulmonary tuberculosis. 5. Ventilator-dependent respiratory failure. 6. Paroxysmal atrial ectopy. 7. Anemia, multifactorial, now receiving packed red blood cell transfusion. PLAN: Discharge medication regimen has been reviewed and discussed with primary care physician with cardiovascular care plan in place for transfer to subacute facility. Jones Arauz M.D. DR: MARCIAL JOB#: [id number] CC:
--- NOTE | 2018-06-26 09:12 | Discharge Summary ---
Discharge Summary Discharge Summary _ DATE OF ADMISSION: 06/20/2018 DATE OF DISCHARGE: 06/25/2018 CONSULTANTS: Dr. Jones Cisse BRIEF HOSPITAL COURSE: Patient is an unfortunate 72-year-old male, with history of chronic respiratory failure, with tracheostomy and vent, G-tube, seizure disorder, stroke and hypertension. He has history of pulmonary tuberculosis. [facility] due to tachycardia and fever. On evaluation at ED, patient was febrile with temperature 100.6. Blood work showed elevated WBC. Hemoglobin was 9, hematocrit 28. Urinalysis showed 20-30 WBC, 3+ leukocyte esterase, positive nitrite. Influenza screen was negative. Chest x-ray showed extensive infiltrates involving the right mid and lower lung. There was equivocal infiltrate in the left lung periphery. Sepsis workup was initiated. He was given IV fluid resuscitation and was admitted to ICU step down for pneumonia. He was continued on vent support. He was given respiratory treatment. He was initially started on cefepime. ID was consulted. In previous admission patient grew a Acinetobacter in sputum. Antibiotics were switched to meropenem and doxycycline. He was continued on isoniazid, rifampin, pyrazinamide and pyridoxine. Urine culture showed growth of ESBL Escherichia coli, A. baumanii MDR and enterococcus. Sputum culture with growth of MDR pseudomonas. Meropenem and doxycycline were discontinued. He was given cefepime. Stool was negative for C. difficile. There was a drop in hemoglobin to 7.9, hematocrit 23. He was given 1 unit packed RBC transfusion. Leukocytosis resolved. Patient was afebrile. He was cleared by [facility] for discharge back to [facility]. FINAL DIAGNOSES: Probable sepsis UTI with ESBL Escherichia coli and MDR A. baumanii and enterococcus Aspiration pneumonia/Pseudomonas pneumonia Hypertension Acute encephalopathy BPH Acute on chronic diastolic congestive heart failure, clinically compensated Severe protein calorie malnutrition Hypomagnesemia status post replacement Pulmonary tuberculosis Vent dependent respiratory failure Paroxysmal atrial ectopy Anemia requiring blood transfusion Seizure disorder DISPOSITION: Patient was discharged back to [facility]. I have been assigned to dictate discharge summary on this account, and I was not involved in the patient's management. Luz Maria Lombardo NP Jun 26, 2018 09:12
== END 2018-06-25 18:10 | DRG 720 ==
LOC: EDBD 09:08 → EMR 09:35 → 2W 10:13 → UNDOADMIN 10:13 → EDBEDREQ 10:49 → 2W 06-24 13:41
PROC: 5A1955Z Respiratory Ventilation, Greater than 96 Consecutive Hours (ICD-10-PCS; principal; 2018-06-20)
PROC: 30233N1 Transfusion of Nonautologous Red Blood Cells into Peripheral Vein, Percutaneous Approach (ICD-10-PCS; 2018-06-25)
DX: A41.9 Sepsis, unspecified organism (principal); J69.0 Pneumonitis due to inhalation of food and vomit; E43 Unspecified severe protein-calorie malnutrition; G93.40 Encephalopathy, unspecified; I50.33 Acute on chronic diastolic (congestive) heart failure; Z99.11 Dependence on respirator [ventilator] status; J13 Pneumonia due to Streptococcus pneumoniae; J96.10 Chronic respiratory failure, unspecified whether with hypoxia or hypercapnia; J44.9 Chronic obstructive pulmonary disease, unspecified; I11.0 Hypertensive heart disease with heart failure; A15.0 Tuberculosis of lung; N39.0 Urinary tract infection, site not specified; Z86.73 Personal history of transient ischemic attack (TIA), and cerebral infarction without residual deficits; B96.20 Unspecified Escherichia coli [E. coli] as the cause of diseases classified elsewhere; B95.2 Enterococcus as the cause of diseases classified elsewhere; B96.89 Other specified bacterial agents as the cause of diseases classified elsewhere; Z16.12 Extended spectrum beta lactamase (ESBL) resistance; Z16.24 Resistance to multiple antibiotics; E83.42 Hypomagnesemia; I49.1 Atrial premature depolarization; D64.9 Anemia, unspecified; F03.90 Unspecified dementia, unspecified severity, without behavioral disturbance, psychotic disturbance, mood disturbance, and anxiety; N40.0 Benign prostatic hyperplasia without lower urinary tract symptoms; Z43.0 Encounter for attention to tracheostomy; Z87.891 Personal history of nicotine dependence; R13.10 Dysphagia, unspecified; Z43.1 Encounter for attention to gastrostomy; E86.1 Hypovolemia; E86.0 Dehydration; Z68.1 Body mass index [BMI] 19.9 or less, adult
CPT/HCPCS: 36415; 71045; 80048; 80053; 81003; 82248; 82270; 82550; 82553; 83540; 83605; 83735; 83880; 84484; 85007; 85025; 86710; 86850; 86900; 86901; 86920; 87040; 87070; 87081; 87086; 87181; 87205; 87324; 93005; 94002; 94003; 94640; 94664; 96361; 96365; 96366; 99291; J7620; J8499

== ENCOUNTER 2018-08-03 10:57 | Inpatient (IN) | payer MEDICARE, OTHER ==
[~2018-08-03] VITALS: Ht 188 cm; Wt 75.9 kg
[~2018-08-03 10:57] MED LIST changes: +INH300 MG GT; +KEPPRA500 MG GT; +LANSOPRAZOLE30 M2 GT
[2018-08-03] MEDS ORDERED: Vancomycin 1 GM in NS 275 ML IV ONE (11:15)
[2018-08-03] MEDS ORDERED: Ampicillin/Sulbactam Sod 3 GM in NS 110 ML IV SCH (11:15)
[2018-08-03 11:31] LABS: HEMATOCRIT 27.6 % (42.0-52.0); MEAN CORPUSCULAR VOLUME 85 FL (80-99); PLATELET COUNT 364 K/UL (150-450); RED BLOOD COUNT 3.23 M/UL (4.70-6.10); RED CELL DISTRIBUTION WIDTH 17.5 % (11.6-14.8)
[2018-08-03 11:36] LABS: WHITE BLOOD COUNT 22.5 K/UL (4.8-10.8)
[2018-08-03 11:45] LABS: INR 1.1 (0.9-1.1)
--- NOTE | 2018-08-03 11:46 | NUR ---
ED Nurse Note: Pt came from [facility]. for congestion, and fever. Pt is vent dependent. Nonverbal. A + O x1. Skin warm to touch. Labs drawn. urine collectd. IV site started.
[2018-08-03 11:47] VITALS: BP 108/51
[2018-08-03 11:59] LABS: ANION GAP 11 mmol/L (5-15); BLOOD UREA NITROGEN 34 mg/dL (7-18); CALCIUM 9.3 MG/DL (8.5-10.1); CARBON DIOXIDE 29 MMOL/L (21-32); CHLORIDE 97 MMOL/L (98-107); CREATININE 0.8 MG/DL (0.55-1.30); POTASSIUM 3.3 MMOL/L (3.5-5.1); SODIUM 137 MMOL/L (136-145)
[2018-08-03 12:04] LABS: APPEARANCE,URINE CLOUDY; BILIRUBIN, URINE NEGATIVE (NEGATIVE); GLUCOSE, URINE (UA) NEGATIVE (NEGATIVE); KETONES,URINE 1+ (NEGATIVE); LEUKOCYTE ESTERASE ,URINE 3+ (NEGATIVE); NITRITE,URINE POSITIVE (NEGATIVE); PH,URINE 5 (4.5-8.0); PROTEIN,URINE 3+ (NEGATIVE); UROBILINOGEN,URINE 8 MG/DL (0.0-1.0)
[2018-08-03 12:05] LABS: COLOR,URINE ORANGE
--- NOTE | 2018-08-03 12:05 | Emergency Room Report ---
History of Present Illness General Chief Complaint: Dyspnea/Respdistress Source: Medical Record, EMS Present Illness HPI Patient presents with hypoxia and fever from [facility] facility. He's vent dependent and has a gastrostomy tube. He is unable to give a history. Last admit with these discharge dx: Probable sepsis UTI with ESBL Escherichia coli and MDR A. baumanii and enterococcus Aspiration pneumonia/Pseudomonas pneumonia Hypertension Acute encephalopathy BPH Acute on chronic diastolic congestive heart failure, clinically compensated Severe protein calorie malnutrition Hypomagnesemia status post replacement Pulmonary tuberculosis Vent dependent respiratory failure Paroxysmal atrial ectopy Anemia requiring blood transfusion Seizure disorder Allergies: Coded Allergies: No Known Allergies (Unverified , 01/27/17) Patient History Limited by: medical condition Past Medical History: see triage record, old chart reviewed Past Surgical History: other - trach, G tube Social History Narrative SNF Reviewed Nursing Documentation: PMH: Agreed; PSxH: Agreed Nursing Documentation-PMH Hx Cardiac Problems: Yes - Tachycardia Hx Hypertension: Yes Hx Pacemaker: No - BPH Hx Cancer: No Hx Gastrointestinal Problems: Yes - Dysphagia, GERD History Of Psychiatric Problem: Yes - Dementia Hx Neurological Problems: Yes Hx Cerebrovascular Accident: Yes Hx Transient Ischemic Attacks: Yes Hx Dementia: Yes Hx Encephalitis: Yes Hx Seizures: Yes - Epilepsy Hx Syncope: Yes Review of Systems All Other Systems: limited Physical Exam Vital Signs Date Time Temp Pulse Resp B/P (MAP) Pulse Ox O2 Delivery O2 Flow Rate FiO2 08/03/18 10:48 98.2 82 15 98/46 94 Trach Collar 4.0 08/03/18 11:19 30 Sp02 EP Interpretation: reviewed, abnormal - interpreted as low by me General Appearance: thin, other - vegetative state, Chronically Ill Eyes: bilateral eye other - Dry eyes ENT: dry mucus membranes Neck: supple, tracheotomy Respiratory: decreased breath sounds, crackles, rales Cardiovascular #1: regular rate, rhythm Cardiovascular #2: 2+ radial (L) Gastrointestinal: non tender, other - G tube, decreased bowel sounds Musculoskeletal: back normal, other - extensor contractures Neurologic: other - not respond to pain Psychiatric: other - vegetative state Skin: normal color Medical Decision Making Diagnostic Impression: Primary Impression: Pneumonia Qualified Codes: J18.9 - Pneumonia, unspecified organism Additional Impressions: UTI (urinary tract infection) Qualified Codes: N39.0 - Urinary tract infection, site not specified Dehydration ER Course Patient presents with hypoxia and fever. Differential includes acute microinfarction, sepsis, pneumonia amongst others. The patient will be evaluated with EKG, chest x-ray and labs including blood cultures and lactate. The patient appears very dry and will receive IV hydration and of sepsis resuscitation bolus and IV antibiotics. EKG without injury. CXR with bilateral infiltrates (worse on L than prior). UA with pyuria. Elevated WBC. Slightly low K. Elevated BUN. Elevated LFTs. Lactate normal. Improved with fluids and antibiotics. Still minimally responsive. Admit SDU, Dr. Vásquez. Laboratory Tests Test 08/03/18 11:05 08/03/18 11:45 White Blood Count 22.5 K/UL (4.8-10.8) *H Red Blood Count 3.23 M/UL (4.70-6.10) L Hemoglobin 9.0 G/DL (14.2-18.0) L Hematocrit 27.6 % (42.0-52.0) L Mean Corpuscular Volume 85 FL (80-99) Mean Corpuscular Hemoglobin 27.9 PG (27.0-31.0) Mean Corpuscular Hemoglobin Concent 32.7 G/DL (32.0-36.0) Red Cell Distribution Width 17.5 % (11.6-14.8) H Platelet Count 364 K/UL (150-450) Mean Platelet Volume 4.9 FL (6.5-10.1) L Neutrophils (%) (Auto) % (45.0-75.0) Lymphocytes (%) (Auto) % (20.0-45.0) Monocytes (%) (Auto) % (1.0-10.0) Eosinophils (%) (Auto) % (0.0-3.0) Basophils (%) (Auto) % (0.0-2.0) Differential Total Cells Counted 100 Neutrophils % (Manual) 85 % (45-75) H Lymphocytes % (Manual) 2 % (20-45) L Monocytes % (Manual) 3 % (1-10) Eosinophils % (Manual) 0 % (0-3) Basophils % (Manual) 0 % (0-2) Band Neutrophils 10 % (0-8) H Platelet Estimate Adequate Platelet Morphology Normal Hypochromasia 1+ Anisocytosis 1+ Prothrombin Time 11.7 SEC (9.30-11.50) H Prothrombin Time INR 1.1 (0.9-1.1) PTT 28 SEC (23-33) Sodium Level 137 MMOL/L (136-145) Potassium Level 3.3 MMOL/L (3.5-5.1) L Chloride Level 97 MMOL/L (98-107) L Carbon Dioxide Level 29 MMOL/L (21-32) Anion Gap 11 mmol/L (5-15) Blood Urea Nitrogen 34 mg/dL (7-18) H Creatinine 0.8 MG/DL (0.55-1.30) Estimate Glomerular Filtration Rate mL/min (>60) Glucose Level 126 MG/DL (74-106) H Lactic Acid Level 1.50 mmol/L (0.4-2.0) Calcium Level 9.3 MG/DL (8.5-10.1) Magnesium Level 2.2 MG/DL (1.8-2.4) Total Bilirubin 1.4 MG/DL (0.2-1.0) H Direct Bilirubin 1.0 MG/DL (0.0-0.3) H Aspartate Amino Transferase (AST) 40 U/L (15-37) H Alanine Aminotransferase (ALT) 10 U/L (12-78) L Alkaline Phosphatase 328 U/L (46-116) H Total Creatine Kinase 103 U/L (26-308) Troponin I 0.000 ng/mL (0.000-0.056) Pro-B-Type Natriuretic Peptide 694 pg/mL (0-125) H Total Protein 7.0 G/DL (6.4-8.2) Albumin 1.5 G/DL (3.4-5.0) L Globulin 5.5 g/dL Albumin/Globulin Ratio 0.3 (1.0-2.7) L Urine Color [place] Urine Appearance Cloudy Urine pH 5 (4.5-8.0) Urine Specific [place] 1.010 (1.005-1.035) Urine Protein 3+ (NEGATIVE) H Urine Glucose (UA) Negative (NEGATIVE) Urine Ketones 1+ (NEGATIVE) H Urine Blood 2+ (NEGATIVE) H Urine Nitrite Positive (NEGATIVE) H Urine Bilirubin Negative (NEGATIVE) Urine Urobilinogen 8 MG/DL (0.0-1.0) H Urine Leukocyte Esterase 3+ (NEGATIVE) H Urine RBC 5-10 /HPF (0 - 0) H Urine WBC 60-80 /HPF (0 - 0) H Urine Squamous Epithelial Cells Occasional /LPF Urine Bacteria Many /HPF (NONE) H EKG Diagnostic Results Rate: normal Rhythm: NSR ST Segments: no acute changes Rhythm Strip Diag. Results EP Interpretation: yes Rhythm: NSR, no PVC's, no ectopy Chest X-Ray Diagnostic Results Chest X-Ray Diagnostic Results : Chest X-Ray Ordered: Yes # of Views/Limited/Complete: 1 View Indication: Other EP Interpretation: Yes Interpretation: no pneumothorax, other - bilateral infilrates Impression: Other Electronically Signed by: Electronically signed by Jones Moody MD Last Vital Signs Date Time Temp Pulse Resp B/P (MAP) Pulse Ox O2 Delivery O2 Flow Rate FiO2 08/03/18 21:50 80 18 30 08/03/18 18:15 98.7 117/57 100 Mechanical Ventilator 08/03/18 10:48 4.0 Status: improved Disposition: ADMITTED INPATIENT Condition: Serious Jones Moody MD Aug 03, 2018 12:05
--- NOTE | 2018-08-03 12:05 | Diagnostic Imaging Report ---
EXAM: XR Chest, 1 View CLINICAL HISTORY: DYSPNEA TECHNIQUE: Frontal view of the chest. COMPARISON: No relevant prior studies available. FINDINGS: Lungs: Airspace and interstitial infiltrates bilaterally, right greater than left. Pleural space: Pleural effusions. No pneumothorax. Heart: Unremarkable. No cardiomegaly. Mediastinum: Unremarkable. Bones/joints: No acute fracture. Tubes, lines and devices: Tracheostomy. IMPRESSION: Airspace and interstitial infiltrates bilaterally, right greater than left.
[2018-08-03 12:13] LABS: ALANINE AMINOTRANSFERASE 10 U/L (12-78); ALBUMIN 1.5 G/DL (3.4-5.0); ALBUMIN/GLOBULIN RATIO 0.3 (1.0-2.7); ALKALINE PHOSPHATASE 328 U/L (46-116); ASPARTATE AMINO TRANSFERASE 40 U/L (15-37); BILIRUBIN,TOTAL 1.4 MG/DL (0.2-1.0); CREATINE KINASE 103 U/L (26-308)
[2018-08-03] MEDS ORDERED: Artificial Tears 1.4% Op Soln BOTH EYES ONE (12:15)
--- NOTE | 2018-08-03 13:57 | NUR ---
ED Nurse Note: Spoke to sushila from pharmacy. Will prepare eye drops.
[2018-08-03 14:38] VITALS: BP 104/58
--- NOTE | 2018-08-03 16:20 | NUR ---
ED Nurse Note: Tried to gve report. RN unavailable.
[2018-08-03 16:44] VITALS: BP 120/62
--- NOTE | 2018-08-03 17:06 | NUR ---
ED Nurse Note: Gave telephone report to LALA Guzmán.
--- NOTE | 2018-08-03 17:25 | NUR ---
ED Nurse Note: Waiting for new bed in unit.
--- NOTE | 2018-08-03 17:48 | Pulmonology Progress Note ---
Assessment/Plan Assessment/Plan Pulmonary Consultation Chief Complaint: Dyspnea, Pneumonia note on CXR HPI Patient is a 73 year old man with past history of Chronic Ventilator Dependency , previous Pulmonary Tuberculosis - currently on TB treatment, previous CVA, previous Seizures, recurrent Hyponatremia, previous episodes of Pneumonia. Presents today with hypoxia and fever from [facility] facility. Previous gastrostomy tube. 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 Results EP Interpretation: yes Rhythm: NSR, no PVC's, no ectopy Chest X-Ray Diagnostic Results Chest X-Ray Diagnostic Results : Chest X-Ray Ordered: Yes # of Views/Limited/Complete: 1 View Indication: Other EP Interpretation: Yes Interpretation: no pneumothorax, other - bilateral infilrates Subjective ROS Limited/Unobtainable: Yes Allergies: Coded Allergies: No Known Allergies (Unverified , 01/27/17) Objective Last 24 Hour Vital Signs Date Time Temp Pulse Resp B/P (MAP) Pulse Ox O2 Delivery O2 Flow Rate FiO2 08/03/18 16:44 98.5 77 19 120/62 100 Mechanical Ventilator 08/03/18 16:30 79 23 30 08/03/18 14:38 99.0 78 24 104/58 100 Mechanical Ventilator 08/03/18 14:30 82 20 30 08/03/18 13:27 87 23 30 08/03/18 11:47 99.4 80 15 108/51 99 Mechanical Ventilator 08/03/18 11:47 80 15 Mechanical Ventilator 99 08/03/18 11:37 75 16 Mechanical Ventilator 30 08/03/18 11:19 75 16 30 08/03/18 10:48 98.2 82 15 98/46 94 Trach Collar 4.0 Laboratory Tests 08/03/18 11:05: White Blood Count 22.5*H, Red Blood Count 3.23L, Hemoglobin 9.0L, Hematocrit 27.6L, Mean Corpuscular Volume 85, Mean Corpuscular Hemoglobin 27.9, Mean Corpuscular Hemoglobin Concent 32.7, Red Cell Distribution Width 17.5H, Platelet Count 364, Mean Platelet Volume 4.9L, Neutrophils (%) (Auto) , Lymphocytes (%) (Auto) , Monocytes (%) (Auto) , Eosinophils (%) (Auto) , Basophils (%) (Auto) , Differential Total Cells Counted 100, Neutrophils % ( Manual) 85H, Lymphocytes % (Manual) 2L, Monocytes % (Manual) 3, Eosinophils % ( Manual) 0, Basophils % (Manual) 0, Band Neutrophils 10H, Platelet Estimate Adequate, Platelet Morphology Normal, Hypochromasia 1+, Anisocytosis 1+, Prothrombin Time 11.7H, Prothromb Time International Ratio 1.1, Activated Partial Thromboplast Time 28, Sodium Level 137, Potassium Level 3.3L, Chloride Level 97L, Carbon Dioxide Level 29, Anion Gap 11, Blood Urea Nitrogen 34H, Creatinine 0.8, Estimat Glomerular Filtration Rate , Glucose Level 126H, Lactic Acid Level 1.50, Calcium Level 9.3, Magnesium Level 2.2, Total Bilirubin 1.4H, Direct Bilirubin 1.0H, Aspartate Amino Transf (AST/SGOT) 40H, Alanine Aminotransferase (ALT/SGPT) 10L, Alkaline Phosphatase 328H, Total Creatine Kinase 103, Troponin I 0.000, Pro-B-Type Natriuretic Peptide 694H, Total Protein 7.0, Albumin 1.5L, Globulin 5.5, Albumin/Globulin Ratio 0.3L 08/03/18 11:45: Urine Color [place], Urine Appearance Cloudy, Urine pH 5, Urine Specific [place] 1.010, Urine Protein 3+H, Urine Glucose (UA) Negative, Urine Ketones 1+H, Urine Blood 2+H, Urine Nitrite PositiveH, Urine Bilirubin Negative, Urine Urobilinogen 8H, Urine Leukocyte Esterase 3+H, Urine RBC 5-10H, Urine WBC 60-80H , Urine Squamous Epithelial Cells Occasional, Urine Bacteria ManyH Current Medications Medications (Trade) Dose Ordered Sig/Iram Route PRN Reason Start Time Stop Time Status Last Admin Dose Admin Ampicillin Sodium/ Sulbactam Sodium 3 gm/Sodium Chloride 110 ml @ 220 mls/hr Q6H IV 08/03/18 11:15 08/04/18 11:14 08/03/18 11:28 Jones Rasmussen MD Aug 03, 2018 17:48
--- NOTE | 2018-08-03 18:04 | NUR ---
CASE MANAGEMENT: INITIAL REVIEW 08/03/2018 73 YO M ALDAIR FROM [facility] [place] CC: DYSPNEA. PMHx: HTN. BPH. DEMENTIA. CVA. TIA. SI:PNA. T 98.2 HR 82 RR 15 B/P 98/46 SATS 94% ON TRACH COLLAR FiO2 40 WBC 22.5 K 3.3 CL 97 TOTAL BILI 1.4 DBILI 1 AST 40 ALT 10 ALP 328 BNP 694 IS: VANCO IV X1 UNASYN IV X1 LEVOFLOXACIN IV X1 NS BOLUS X1 PATIENT ADMITTED TO [facility] 08/03/2018 @ 1255 DCP: PATIENT TO BE DISCHARGED TO SNF ONCE MEDICALLY CLEARED. PLAN OF CARE: IV antibiotics Ventilator PRN vs TC IVF Titrate FIO2 Gt feeds
[2018-08-03] MEDS ORDERED: DULCOLAX10 MG RC (18:09)
[2018-08-03] MEDS ORDERED: ACETAMINOP160 MG/5 M GT ×2 (18:09)
[2018-08-03] MEDS ORDERED: METOPROLOL TART50 M1 GT (18:09)
[2018-08-03] MEDS ORDERED: ARTIFICIAL TEAR15 ML BOTH EYES (18:09)
[2018-08-03] MEDS ORDERED: MILK OF MA400 MG/51 GT (18:09)
[2018-08-03] MEDS ORDERED: RIFAMPIN300 MG GT (18:09)
[2018-08-03] MEDS ORDERED: ZINC SULFATE220 M1 GT (18:09)
[2018-08-03] MEDS ORDERED: ASCORBIC ACID500 MG GT (18:09)
[2018-08-03] MEDS ORDERED: CARDURA1 MG GT (18:09)
[2018-08-03] MEDS ORDERED: LEVETIRACE100 MG/1 M GT (18:09)
[2018-08-03] MEDS ORDERED: VITAMIN B-6100 MG GT (18:15)
[2018-08-03] MEDS ORDERED: PROMOD946 ML GT (18:15)
--- NOTE | 2018-08-03 18:17 | NUR ---
ED Nurse Note: Transferred pt to unit. No acute distress or pain noted.
--- NOTE | 2018-08-03 18:20 | NUR ---
NURSE NOTES: Received pt ,a new admission from ED,pt trache with Vent AC 12 TV 500 Fio2 30%,Peep 5.Pt Obtunded,on SR on the monitor,IV Heplock to RFA intact, mcintyre cath draining to blood tinged yellow urine,,Clamped GT with abd binder,SR up x2 HOB elevated bed lock in lowest position ,will continue to monitor pt.Report given by Lakia SANTIAGO RN.
[2018-08-03 19:00] VITALS: BP 150/73
--- NOTE | 2018-08-03 19:30 | NUR ---
HAND-OFF: Report given to Nav Carson RN,family members at bedside..
[2018-08-03 20:00] VITALS: BP 134/76
[2018-08-03] MEDS ORDERED: Fleet's Enema 133ml RECTAL PRN (20:30)
[2018-08-03] MEDS ORDERED: Acetaminophen Soln 160mg/5ml ORAL PRN (20:30)
[2018-08-03] MEDS ORDERED: Milk of Magnesia 30ml Ud GT PRN (20:30)
[2018-08-03] MEDS ORDERED: Artificial Tears 1.4% Op Soln BOTH EYES PRN (20:30)
[2018-08-03] MEDS ORDERED: PYRAZINAMIDE500 MG GT (21:08)
[2018-08-03] MEDS: Doxazosin 1mg Tab GT SCH (22:57)
[2018-08-03] MEDS: Metoprolol Tartrate 50mg tab GT SCH (22:58)
[2018-08-03] MEDS: levETIRAcetam 500mg/5ml Liquid GT SCH (22:58)
[2018-08-03] MEDS: Ampicillin/Sulbactam Sod 3 GM in NS 110 ML IVPB SCH (22:59)
[2018-08-03] MEDS ORDERED: Vancomycin 500mg/D5W 110ml IVPB SCH ×2 (23:00)
[2018-08-03] MEDS: Heparin 5000 units/ml inj SUBQ SCH (23:03)
[2018-08-04] VITALS: BP 134/74
[2018-08-04 04:00] VITALS: BP 121/53
[2018-08-04 04:49] LABS: HEMOGLOBIN 7.6 G/DL (14.2-18.0); MEAN CORPUSCULAR VOLUME 86 FL (80-99); PLATELET COUNT 334 K/UL (150-450); RED BLOOD COUNT 2.68 M/UL (4.70-6.10); RED CELL DISTRIBUTION WIDTH 17.3 % (11.6-14.8); WHITE BLOOD COUNT 17.2 K/UL (4.8-10.8)
[2018-08-04 05:20] LABS: ANION GAP 8 mmol/L (5-15); BLOOD UREA NITROGEN 26 mg/dL (7-18); CALCIUM 9.1 MG/DL (8.5-10.1); CARBON DIOXIDE 29 MMOL/L (21-32); CHLORIDE 100 MMOL/L (98-107); CREATININE 0.7 MG/DL (0.55-1.30); POTASSIUM 3.3 MMOL/L (3.5-5.1); SODIUM 137 MMOL/L (136-145)
[2018-08-04] MEDS: Ampicillin/Sulbactam Sod 3 GM in NS 110 ML IVPB SCH ×3 (05:24→22:12)
--- NOTE | 2018-08-04 07:20 | NUR ---
NURSE NOTES: Received report from LALA Carson. Patient is resting in bed, in stable condition. No s/sx of SOB, breathing is even and unlabored. Observed no presence of pain or discomfort at this time. Bed is in lowest position, brakes engaged. Call light kept within easy reach. Will continue to monitor patient.
--- NOTE | 2018-08-04 07:22 | NUR ---
NURSE NOTES: Per Dr. Rasmussen, Dr. Cisse is covering to patient today. Left message for Dr. Cisse regarding patient's AM lab results of the following: HGB:7.6, HCT:23.0, K:3.3. ABG: pH:7.512, pO2:49.2, pcO2:36, O2sat:86.1, base:5.0. awaiting further orders and/or instructions. Will follow up and endorse to incoming nurse.
--- NOTE | 2018-08-04 07:23 | NUR ---
HAND-OFF: Report given to LALA Caballero.
[2018-08-04 08:00] VITALS: BP 112/54
[2018-08-04] MEDS: Zinc Sulfate 220mg cap GT SCH (08:27)
[2018-08-04] MEDS: Metoprolol Tartrate 50mg tab GT SCH ×2 (08:27→21:10)
[2018-08-04] MEDS: Aspirin Baby 81mg GT SCH (08:28)
[2018-08-04] MEDS: Docusate 100mg/10ml Liq GT SCH (08:28)
[2018-08-04] MEDS: Ascorbic Acid 500mg tab GT SCH (08:29)
[2018-08-04] MEDS: Pyridoxine 50mg tab GT SCH (08:29)
[2018-08-04] MEDS: levETIRAcetam 500mg/5ml Liquid GT SCH ×2 (08:30→21:13)
[2018-08-04] MEDS: Multivitamins W/Minerals 15 ML UDC GT SCH (08:30)
[2018-08-04] MEDS: Isoniazid 300mg tab GT SCH (08:31)
[2018-08-04] MEDS: Heparin 5000 units/ml inj SUBQ SCH ×2 (08:32→21:14)
[2018-08-04] MEDS: Acetaminophen 650mg/20.3ml GT PRN (08:52)
[2018-08-04] MEDS ORDERED: Acetaminophen Soln 160mg/5ml ORAL SCH (09:00)
--- NOTE | 2018-08-04 10:00 | NUR ---
NURSE NOTES: Dr. Cisse made aware of Hgb 7.6. acknowledged and ordered 2 units of PRBC to transfuse. Order entered, noted. and carried out. Will continue to monitor patient.
--- NOTE | 2018-08-04 11:00 | NUR ---
NURSE NOTES: Obtained telephone consent for blood transfusion form patient's . LALA Alcala as second witness. Consent in chart.
[2018-08-04 12:00] VITALS: BP 117/59
--- NOTE | 2018-08-04 15:00 | NUR ---
NURSE NOTES: Informed Dr. Cisse of ABG results. acknowledged, no new orders given at this time. Patient is on vent with SpO2 of 99%, no distress noted. Will continue to monitor patient.
--- NOTE | 2018-08-04 15:10 | NUR ---
RD ASSESSMENT & RECOMMENDATIONS SEE CARE ACTIVITY FOR COMPLETE ASSESSMENT DAILY ESTIMATED NEEDS: Needs based on Underweight, TF ENGRAVER FLATWARE, Critical care, wounds/49.5kg 30-40 kcals/kg 1351-8719 total kcals 1.5-2 g protein/kg 74-99 g total protein 25-30 mL/kg 2466-5188 total fluid mLs NUTRITION DIAGNOSIS: 1) Swallowing difficulty r/t dysphagia, respiratory status as evidenced by pt is PEG dep, trach/vent dep. . 2) Increased kcal/prot needs R/T underweight status and wound healing as evidenced by low BMI under guidelines, noted w/ mod-severe generalized wasting, pt w/ multiple advanced wounds, pending WC eval. CURRENT TF: Vital AF 1.2 @65ml /hr x20 hrs Orders for Vital 1.5/ not in house formula ENTERAL NUTRITION RECOMMENDATIONS: MAINTAIN Vital AF 1.2 @ 65ml/hr x20 hrs to provide 1300ml, 1560 kcal, 98g prot, 1054ml free H2O - Meets 100% est kcal and protein needs. - Flush per MD/ HOB over 30 degrees ADDITIONAL RECOMMENDATIONS: 1) Via GT add YOVANI w/ 4-6oz fluid BID for wound care -> Increase Vit C to 500mg BID 2) RECALIBRATE BED SCALE FOR ACCURATE CBW (conflicting wts) + weekly wts given underweight status 3) Check lytes daily, replete as needed (K 3.3)
--- NOTE | 2018-08-04 15:16 | Pulmonology Progress Note ---
Assessment/Plan Assessment/Plan respiratory failure tachycardia sepsis leukocytosis anemia severe protein calorie malnutrition trach GT aspiration possible pneumonia PLAN care noted IV antibiotics respiratory care Ventilatory support SNF meds supportive care suction no wean oxygen therapy monitor labs nutrition prognosis guarded Subjective ROS Limited/Unobtainable: Yes Allergies: Coded Allergies: No Known Allergies (Unverified , 01/27/17) Subjective transferred for unstable vitals on vent care noted Objective Last 24 Hour Vital Signs Date Time Temp Pulse Resp B/P (MAP) Pulse Ox O2 Delivery O2 Flow Rate FiO2 08/04/18 12:30 80 22 30 08/04/18 12:00 30 08/04/18 12:00 Mechanical Ventilator 08/04/18 12:00 97.7 82 21 117/59 (78) 100 08/04/18 11:00 76 19 30 08/04/18 09:22 98.2 08/04/18 09:20 92 22 30 08/04/18 08:29 120 112/54 08/04/18 08:27 120 112/54 08/04/18 08:00 119 08/04/18 08:00 100.6 120 28 112/54 (73) 100 08/04/18 08:00 30 08/04/18 08:00 Mechanical Ventilator 08/04/18 06:55 112 28 30 08/04/18 04:56 84 22 30 08/04/18 04:00 98.8 92 28 121/53 (75) 100 08/04/18 04:00 Mechanical Ventilator 08/04/18 04:00 30 08/04/18 03:40 93 08/04/18 03:01 88 27 30 08/04/18 01:05 82 22 30 08/04/18 00:00 Mechanical Ventilator 08/04/18 00:00 30 08/04/18 00:00 99.1 80 22 134/74 (94) 100 08/03/18 23:38 78 08/03/18 23:00 83 22 30 08/03/18 22:58 86 141/76 08/03/18 21:50 80 18 30 08/03/18 20:00 30 08/03/18 20:00 Mechanical Ventilator 08/03/18 20:00 98.8 90 22 134/76 (95) 100 08/03/18 19:29 80 08/03/18 19:00 97.0 85 20 150/73 (98) 100 12/30/18 19:00 Mechanical Ventilator 08/03/18 18:55 78 22 30 08/03/18 18:15 98.7 73 12 117/57 100 Mechanical Ventilator 08/03/18 16:44 98.5 77 19 120/62 100 Mechanical Ventilator 08/03/18 16:30 79 23 30 Intake and Output 08/03/18 08/04/18 19:00 07:00 Intake Total 1450 ml 660 ml Output Total 225 ml 675 ml Balance 1225 ml -15 ml Intake Free Water 60 ml IV Total 1450 ml 480 ml Tube Feeding 120 ml Output Urine Total 225 ml 675 ml Objective WDWN trach reduced breath sounds bilaterally without rhonchi or wheeze [id number] without MRG NABS nontender no HSM; GT no CCE contracted nonfocal Microbiology Date/Time Source Procedure Growth Status 08/03/18 11:20 Blood Blood Culture - Preliminary Resulted 08/03/18 11:10 Blood Blood Culture - Preliminary Resulted 08/04/18 01:10 Sputum Gram Stain - Final Resulted 08/04/18 01:10 Sputum Sputum Culture Pending Resulted 08/03/18 11:45 Urine,Clean Catch Urine Culture - Preliminary Gram Negative Bacillus 1 Resulted 08/03/18 12:01 Rectum VRE Culture Pending Resulted 08/03/18 12:01 Rectum - Preliminary Resulted Laboratory Tests 08/04/18 03:35: White Blood Count 17.2H, Red Blood Count 2.68L, Hemoglobin 7.6L, Hematocrit 23.0L, Mean Corpuscular Volume 86, Mean Corpuscular Hemoglobin 28.3, Mean Corpuscular Hemoglobin Concent 33.0, Red Cell Distribution Width 17.3H, Platelet Count 334, Mean Platelet Volume 4.5L, Neutrophils (%) (Auto) , Lymphocytes (%) (Auto) , Monocytes (%) (Auto) , Eosinophils (%) (Auto) , Basophils (%) (Auto) , Differential Total Cells Counted 100, Neutrophils % ( Manual) 90H, Lymphocytes % (Manual) 6L, Monocytes % (Manual) 4, Eosinophils % ( Manual) 0, Basophils % (Manual) 0, Band Neutrophils 0, Platelet Estimate Adequate, Platelet Morphology Normal, Hypochromasia 1+, Anisocytosis 1+, Sodium Level 137, Potassium Level 3.3L, Chloride Level 100, Carbon Dioxide Level 29, Anion Gap 8, Blood Urea Nitrogen 26H, Creatinine 0.7, Estimat Glomerular Filtration Rate , Glucose Level 88, Calcium Level 9.1 08/04/18 06:30: Arterial Blood pH 7.512H, Arterial Blood Partial Pressure CO2 36.0, Arterial Blood Partial Pressure O2 49.2*L, Arterial Blood HCO3 28.2H, Arterial Blood Oxygen Saturation 86.1*L, Arterial Blood Base Excess 5.0H, Derek Test Positive Current Medications Medications (Trade) Dose Ordered Sig/Iram Route PRN Reason Start Time Stop Time Status Last Admin Dose Admin Acetaminophen (Tylenol) 650 mg Q6H PRN GT Mild Pain/Temp > 101.0 08/03/18 20:30 09/02/18 20:29 08/04/18 08:52 Amlodipine Besylate (Norvasc) 10 mg DAILY GT 08/04/18 09:00 09/03/18 08:59 08/04/18 08:29 Ampicillin Sodium/ Sulbactam Sodium 3 gm/Sodium Chloride 110 ml @ 220 mls/hr Q8HR IVPB 08/03/18 22:00 08/10/18 21:59 08/04/18 05:24 Artificial Tears (Akwa-Tears) 2 drop DAILYPRN PRN BOTH EYES DRY EYES 08/03/18 20:30 09/02/18 20:29 Ascorbic Acid (Vitamin C) 500 mg DAILY GT 08/04/18 09:00 09/03/18 08:59 08/04/18 08:29 Aspirin (ASA) 81 mg DAILY GT 08/04/18 09:00 09/03/18 08:59 08/04/18 08:28 Atorvastatin Calcium (Lipitor) 10 mg BEDTIME GT 08/03/18 21:00 09/02/18 20:59 08/03/18 22:57 Bisacodyl (Dulcolax) 10 mg DAILYPRN PRN RECTAL constipation 08/03/18 20:30 09/02/18 20:29 Docusate Sodium (Colace) 100 mg DAILY GT 08/04/18 09:00 09/03/18 08:59 08/04/18 08:28 Doxazosin Mesylate (Cardura) 1 mg QHS GT 08/03/18 21:00 09/02/18 20:59 08/03/18 22:57 Heparin Sodium (Porcine) (Heparin 5000 units/ml) 5,000 units EVERY 12 HOURS SUBQ 08/03/18 21:00 09/02/18 20:59 08/03/18 23:03 Isoniazid (Inh) 300 mg DAILY GT 08/04/18 09:00 09/03/18 08:59 08/04/18 08:31 Lansoprazole (Prevacid) 30 mg Q12HR GT 08/03/18 21:00 09/02/18 20:59 08/04/18 08:28 Levetiracetam (Keppra) 750 mg Q12HR GT 08/03/18 21:00 09/02/18 20:59 08/04/18 08:30 Levofloxacin 150 ml @ 100 mls/hr Q24H IVPB 08/03/18 23:00 08/10/18 22:59 08/03/18 23:43 Magnesium Hydroxide (Mom) 30 ml DAILYPRN PRN GT CONSTIPATION 08/03/18 20:30 09/02/18 20:29 Metoprolol Tartrate (Lopressor) 50 mg EVERY 12 HOURS GT 08/03/18 21:00 09/02/18 20:59 08/04/18 08:27 Multivitamins (Multivitamins W/ Minerals 15ml Liquid) 15 ml DAILY GT 08/04/18 09:00 09/03/18 08:59 08/04/18 08:30 Ondansetron HCl (Zofran) 4 mg Q8H PRN IVP Nausea & Vomiting 08/03/18 20:30 09/02/18 20:29 Pyrazinamide (Pza) 1,000 mg DAILY GT 08/04/18 09:00 09/03/18 08:59 08/04/18 08:28 Pyridoxine HCl (Vitamin B6) 100 mg DAILY GT 08/04/18 09:00 09/03/18 08:59 08/04/18 08:29 Rifampin (Rifadin) 600 mg DAILY GT 08/04/18 09:00 09/03/18 08:59 08/04/18 08:28 Sodium Phosphate (Fleet's Sodium Phosl Enema) 133 ml DAILYPRN PRN RECTAL constipation 08/03/18 20:30 09/02/18 20:29 Vancomycin HCl (Vanco rx to dose) 1 ea DAILY MISC 12/31/18 09:00 09/03/18 08:59 Vancomycin HCl 500 mg/Dextrose 110 ml @ 110 mls/hr Q12HR@0600,1800 IVPB 08/04/18 18:00 08/09/18 17:59 Zinc Sulfate (Zinc Sulfate) 220 mg DAILY GT 08/04/18 09:00 09/03/18 08:59 08/04/18 08:27 Nakul Cisse MD Aug 04, 2018 15:16
--- NOTE | 2018-08-04 15:27 | NUR ---
NURSE NOTES:WOUND CARE NOTES:WOUND CARE NOTES:Pt presents with multiple pressure injuries present on admission.R trochanteric full thickness pressure injury (L)4.5cm x (W)2.7cm ,wound bed maroon centrally with epithelialized borders.Periwound darker skin tone without induration.Minimal serous exudate noted. Partial thickness wound lumbar spine (L)5cm x (W)9.5cm ,Wound bed viable with additional openings along edges and periwound.Minimal sanguineous exudate noted. .Second full thickness pressure injury noted to lumbar sacral area with 100% yellow slough (L)0.5cm x (W)0.7cm.Darker skin tone without induration noted periwound. Full thickness pressure injury R ischium (L)6cm x (W)3cm ,Wound bed granular ,edges adherent and flat .Periwound intact.Gross erythema with partial thickness erosion extending from suprapubis,Bilat groin and scrotum noted.Pt demonstrates pain by flinching with minimal skin contact during skin assessment. Bilat heels are dry without fluctuance with scattered dark pigmentations. Tx.Plan .Cleanse wound R trochanter with Saline;Apply Hydrogel .Cavilon Skin Barrier periwound .Cover with Optifoam Drsg Daily ad prn. Cleanse wound Lumbar spine with Saline.Apply Hydrogel .Cavilon Skin barrier periwound .Cover with Optifoam drsg Daily and prn. Cleanse wound Lumbar sacral with Saline.Apply TheraHoney gel.Cavilon Skin Barrier Periwound .Cover with Optifoam drsg Daily and prn. Cleanse R ischial wound with Saline.Apply Hydrogel.Cavilon Skin Barrier periwound.Cover with Optifoam drsg Daily and prn. Cavilon Skin Barrier to both heels. Off-load with pillow. Air fluidized mattress. Reposition at least every 2 hours or as tolerated.
[2018-08-04 16:00] VITALS: BP 142/70
--- NOTE | 2018-08-04 16:00 | NUR ---
NURSE NOTES: Patient tolerated first unit of blood transfusion out of two. Will continue to monitor patient.
--- NOTE | 2018-08-04 16:00 | NUR ---
NURSE NOTES: Informed Dr. Vásquez of positive blood cultures, acknowledged and ordered Dr. Urban as infectious disease consult. Order entered, noted, and carried out. Will continue to monitor patient.
--- NOTE | 2018-08-04 16:15 | History and Physical Report ---
DATE OF ADMISSION: 08/03/2018 CHIEF COMPLAINT: Sepsis, pneumonia, and UTI. HISTORY OF PRESENT ILLNESS: The patient is an unfortunate 73-year-old male. He has a prior history of stroke, encephalopathy, COPD, and chronic respiratory failure. He has a history of pulmonary tuberculosis, currently on TB medications. He has a history of anemia. He was transferred from a snf facility with complaints of shortness of breath, cough, and congestion. On evaluation in the emergency room, the patient was noted to have a fever. He had leukocytosis. The patient was pancultured and has been started on broad-spectrum IV antibiotics. He is now admitted for further evaluation and care. PAST MEDICAL HISTORY: As above. PAST SURGICAL HISTORY: Includes prior history of a trach and a G-tube. CURRENT MEDICATIONS: Reconciled and reviewed. ALLERGIES: None. FAMILY HISTORY: None. SOCIAL HISTORY: There is no known history of tobacco, ethanol, or drugs. REVIEW OF SYSTEMS: Unobtainable as the patient is nonverbal at baseline. PHYSICAL EXAMINATION: VITAL SIGNS: Temperature is 100.6, pulse 120, respirations 28, and blood pressure 112/54. GENERAL: The patient is a chronically ill-appearing male, in no apparent distress. He occasionally opens his eyes, but does not follow commands. NECK: Supple. Trach site was midline and clean. HEART: Regular rate and rhythm. LUNGS: Significant for bilateral rhonchi. ABDOMEN: Soft, nontender, and nondistended. EXTREMITIES: No clubbing, cyanosis, or edema. LABORATORY DATA: Labs showed white count of 22,000, hemoglobin 9, hematocrit 27, and platelets 364,000. INR is 1.1. Sodium 137, potassium 3.3, chloride 97, bicarb 29, BUN 34, and creatinine 0.8. Total bilirubin is 1.4, direct bilirubin of 1. AST 40, ALT 10, and alkaline phosphatase 328. UA showed 60 to 80 wbc's. X-ray showed bilateral infiltrates. ASSESSMENT: This is an unfortunate male with a history of stroke, encephalopathy, chronic respiratory failure, pulmonary tuberculosis, and anemia, admitted with complaints of sepsis due to pneumonia and urinary tract infection. PROBLEM LIST: 1. Sepsis. 2. Pneumonia. 3. UTI. 4. History of TB. 5. Prior history of stroke. 6. History of encephalopathy. 7. History of sacral wound. PLAN: 1. Aggressive fluid resuscitation. 2. Continue ventilatory support, respiratory treatment, and broad-spectrum antibiotic therapy. 3. ID consultation. 4. Follow up pending cultures. 5. Pulmonary consultation to manage the patient's ventilator. 6. Continue aggressive wound care. 7. Continue tube feedings. Jarrod Vásquez M.D. DR: GIANNI JOB#: [id number] CC:
[2018-08-04] MEDS ORDERED: Vancomycin 500mg/D5W 110ml IVPB SCH ×2 (18:00)
--- NOTE | 2018-08-04 18:00 | NUR ---
NURSE NOTES: Called and left message for Dr. Urban for infectious disease consult. Noted.
--- NOTE | 2018-08-04 19:29 | NUR ---
HAND-OFF: Report given to LALA Carson.
--- NOTE | 2018-08-04 19:30 | NUR ---
NURSE NOTES: Received patient from [facility]. Patient is obtunded, on trach Shiley 6 to vent with settings of AC:12, TV:500, FiO2:30%, PEEP:5 and O2 saturating at 100%. Manzo catheter is in tact and draining well, GTube feeding is running Vital 1.2 @20ml/hour (goal is 65ml/hr). Will increase feeding depending on residual. Will continue plan of care. is at bedside.
[2018-08-04 20:00] VITALS: BP 130/63
--- NOTE | 2018-08-04 20:24 | NUR ---
RESPIRATORY NOTE: Received pt. on 840 vent. Vent settings are: A/C 12, Vt 500, FI02 30%, PEEP +5. No respiratory distress noted, Sp02 @ 100%. Ambu bag @ BS. Vent plugged on red outlet. Will continue to monitor pt.
[2018-08-04] MEDS: Doxazosin 1mg Tab GT SCH (21:09)
[2018-08-05] VITALS: BP 120/67
[2018-08-05 04:00] VITALS: BP 125/57
[2018-08-05] MEDS: Ampicillin/Sulbactam Sod 3 GM in NS 110 ML IVPB SCH (05:45)
[2018-08-05 05:50] LABS: BASOPHILS % (AUTO) 0.2 % (0.0-2.0); EOSINOPHILS % (AUTO) 0.7 % (0.0-3.0); HEMATOCRIT 27.3 % (42.0-52.0); HEMOGLOBIN 9.3 G/DL (14.2-18.0); LYMPHOCYTES % (AUTO) 6.6 % (20.0-45.0); MEAN CORPUSCULAR VOLUME 87 FL (80-99); MONOCYTES % (AUTO) 7.8 % (1.0-10.0); NEUTROPHILS % (AUTO) 84.8 % (45.0-75.0); PLATELET COUNT 312 K/UL (150-450); RED BLOOD COUNT 3.13 M/UL (4.70-6.10); RED CELL DISTRIBUTION WIDTH 16.5 % (11.6-14.8); WHITE BLOOD COUNT 10.9 K/UL (4.8-10.8)
--- NOTE | 2018-08-05 07:20 | NUR ---
HAND-OFF: Report given to Arielle Mccoy RN.
--- NOTE | 2018-08-05 07:30 | NUR ---
NURSE NOTES: Report received from Yamileth Chopra RN. resting quietly in bed asleep noted no resp distress,pt trach with mech vent on currrent settings tolerating well,no signs of pain or discomfort,SR on the monitor,GTF feeding Vital AF 1.2 at 50 ml/hr no residual,Manzo cath for urinary retention draining yellow urine,IV site HL x2 to LH and RFA intact,skin warm and dry,SR up x2 HOB elevated bed in lowest position will continue with plans of care.
--- NOTE | 2018-08-05 07:30 | NUR ---
RESPIRATORY NOTE:Received pt on current vent settings. Pt is trached with size 8 shiley trach. No s/s of distress. Vent alarms are on and audible. Will cont. to monitor pt.
[2018-08-05 08:00] VITALS: BP 136/60
[2018-08-05] MEDS ORDERED: Vancomycin 500mg/D5W 110ml IVPB SCH ×2 (08:00)
[2018-08-05 09:04] LABS: ANION GAP 10 mmol/L (5-15); BLOOD UREA NITROGEN 27 mg/dL (7-18); CALCIUM 8.4 MG/DL (8.5-10.1); CARBON DIOXIDE 29 MMOL/L (21-32); CHLORIDE 101 MMOL/L (98-107); CREATININE 0.7 MG/DL (0.55-1.30); POTASSIUM 3.2 MMOL/L (3.5-5.1); SODIUM 140 MMOL/L (136-145)
[2018-08-05] MEDS: Zinc Sulfate 220mg cap GT SCH (09:13)
[2018-08-05] MEDS: Aspirin Baby 81mg GT SCH (09:13)
[2018-08-05] MEDS: Pyridoxine 50mg tab GT SCH (09:14)
[2018-08-05] MEDS: Metoprolol Tartrate 50mg tab GT SCH ×2 (09:23→20:59)
[2018-08-05] MEDS: Multivitamins W/Minerals 15 ML UDC GT SCH (09:23)
[2018-08-05] MEDS: Ascorbic Acid 500mg tab GT SCH (09:23)
[2018-08-05] MEDS: Isoniazid 300mg tab GT SCH (09:23)
[2018-08-05] MEDS: Docusate 100mg/10ml Liq GT SCH (09:24)
[2018-08-05] MEDS: Heparin 5000 units/ml inj SUBQ SCH ×2 (09:26→21:05)
[2018-08-05] MEDS: levETIRAcetam 500mg/5ml Liquid GT SCH ×2 (09:55→21:06)
--- NOTE | 2018-08-05 11:00 | NUR ---
NURSE NOTES: Pt stable, in no distress family members and spouse at bedside.
--- NOTE | 2018-08-05 11:14 | Pulmonology Progress Note ---
Assessment/Plan Assessment/Plan respiratory failure tachycardia sepsis leukocytosis anemia severe protein calorie malnutrition trach GT aspiration possible pneumonia urosepsis PLAN care noted IV antibiotics- cultures noted ID follow up respiratory care Ventilatory support as is SNF meds supportive care suction as needed no wean oxygen therapy monitor labs nutrition prognosis guarded impression, plan, and exam edited and reviewed in detail care discussed with RN Subjective ROS Limited/Unobtainable: Yes Allergies: Coded Allergies: No Known Allergies (Unverified , 01/27/17) Subjective multiple positive cultures on vent care noted Objective Last 24 Hour Vital Signs Date Time Temp Pulse Resp B/P (MAP) Pulse Ox O2 Delivery O2 Flow Rate FiO2 08/05/18 09:23 78 136/60 08/05/18 09:23 78 136/60 08/05/18 08:35 81 16 30 08/05/18 08:07 82 08/05/18 08:00 98.6 78 22 136/60 (85) 100 08/05/18 07:28 90 16 30 08/05/18 05:03 76 15 30 08/05/18 04:00 30 08/05/18 04:00 98.7 70 23 125/57 (79) 100 08/05/18 04:00 Mechanical Ventilator 08/05/18 03:39 68 08/05/18 02:29 71 17 30 08/05/18 01:08 66 15 30 08/05/18 00:00 Mechanical Ventilator 08/05/18 00:00 97.5 70 17 120/67 (84) 100 08/04/18 23:56 69 08/04/18 23:15 65 14 30 08/04/18 21:46 68 13 30 08/04/18 21:10 68 143/76 08/04/18 20:23 68 14 30 08/04/18 20:00 Mechanical Ventilator 08/04/18 20:00 97.7 72 19 130/63 (85) 100 08/04/18 20:00 30 08/04/18 19:15 68 08/04/18 17:09 88 20 30 08/04/18 16:00 73 08/04/18 16:00 30 08/04/18 16:00 Mechanical Ventilator 08/04/18 16:00 97.7 71 20 142/70 (94) 100 08/04/18 15:23 86 20 30 08/04/18 12:30 80 22 30 12/31/18 12:00 74 08/04/18 12:00 30 08/04/18 12:00 Mechanical Ventilator 08/04/18 12:00 97.7 82 21 117/59 (78) 100 Intake and Output 08/04/18 08/05/18 18:59 06:59 Intake Total 180 ml 920 ml Output Total 500 ml 400 ml Balance -320 ml 520 ml Intake Free Water 60 ml IV Total 370 ml Tube Feeding 180 ml 390 ml Other 100 ml Output Urine Total 500 ml 400 ml # Bowel Movements 2 Objective WDWN trach reduced breath sounds bilaterally without rhonchi or wheeze [id number] without MRG NABS nontender no HSM; GT no CCE contracted nonfocal Microbiology Date/Time Source Procedure Growth Status 08/03/18 11:20 Blood Blood Culture - Preliminary Gram Negative Bacillus 1 Resulted 08/03/18 11:10 Blood Blood Culture - Preliminary Gram Positive Cocci Resulted 08/04/18 01:10 Sputum Gram Stain - Final Resulted 08/04/18 01:10 Sputum Sputum Culture - Preliminary Resulted 08/03/18 12:01 Nasal Nares MRSA Culture - Final NO METHICILLIN RESISTANT STAPH AUREUS... Complete 08/04/18 01:30 Indwelling Cath Urine Culture - Preliminary Gram Negative Bacillus 1 Resulted 08/03/18 11:45 Urine,Clean Catch Urine Culture - Final Escherichia Coli - Esbl Complete 08/03/18 12:01 Rectum VRE Culture - Final Enterococcus Faecium - Vre Complete 08/03/18 12:01 Rectum - Final NO CARBAPENEM-RESISTANT ENTEROBACTERI... Complete Laboratory Tests 08/05/18 03:10: White Blood Count 10.9H, Red Blood Count 3.13L, Hemoglobin 9.3L, Hematocrit 27.3L, Mean Corpuscular Volume 87, Mean Corpuscular Hemoglobin 29.7, Mean Corpuscular Hemoglobin Concent 34.0, Red Cell Distribution Width 16.5H, Platelet Count 312, Mean Platelet Volume 4.7L, Neutrophils (%) (Auto) 84.8H, Lymphocytes (%) (Auto) 6.6L, Monocytes (%) (Auto) 7.8, Eosinophils (%) (Auto) 0.7, Basophils (%) (Auto) 0.2, Sodium Level 140, Potassium Level 3.2L, Chloride Level 101, Carbon Dioxide Level 29, Anion Gap 10, Blood Urea Nitrogen 27H, Creatinine 0.7, Estimat Glomerular Filtration Rate , Glucose Level 102, Calcium Level 8.4L Current Medications Medications (Trade) Dose Ordered Sig/Iram Route PRN Reason Start Time Stop Time Status Last Admin Dose Admin Acetaminophen (Tylenol) 650 mg Q6H PRN GT Mild Pain/Temp > 101.0 08/03/18 20:30 09/02/18 20:29 08/04/18 08:52 Amlodipine Besylate (Norvasc) 10 mg DAILY GT 08/04/18 09:00 09/03/18 08:59 08/05/18 09:23 Artificial Tears (Akwa-Tears) 2 drop DAILYPRN PRN BOTH EYES DRY EYES 08/03/18 20:30 09/02/18 20:29 Ascorbic Acid (Vitamin C) 500 mg DAILY GT 08/04/18 09:00 09/03/18 08:59 08/05/18 09:23 Aspirin (ASA) 81 mg DAILY GT 08/04/18 09:00 09/03/18 08:59 08/05/18 09:13 Atorvastatin Calcium (Lipitor) 10 mg BEDTIME GT 08/03/18 21:00 09/02/18 20:59 08/04/18 21:09 Bisacodyl (Dulcolax) 10 mg DAILYPRN PRN RECTAL constipation 08/03/18 20:30 09/02/18 20:29 Docusate Sodium (Colace) 100 mg DAILY GT 08/04/18 09:00 09/03/18 08:59 08/05/18 09:24 Doxazosin Mesylate (Cardura) 1 mg QHS GT 08/03/18 21:00 09/02/18 20:59 08/04/18 21:09 Heparin Sodium (Porcine) (Heparin 5000 units/ml) 5,000 units EVERY 12 HOURS SUBQ 08/03/18 21:00 09/02/18 20:59 08/05/18 09:26 Isoniazid (Inh) 300 mg DAILY GT 08/04/18 09:00 09/03/18 08:59 08/05/18 09:23 Lansoprazole (Prevacid) 30 mg Q12HR GT 08/03/18 21:00 09/02/18 20:59 08/05/18 09:23 Levetiracetam (Keppra) 750 mg Q12HR GT 08/03/18 21:00 09/02/18 20:59 08/05/18 09:55 Magnesium Hydroxide (Mom) 30 ml DAILYPRN PRN GT CONSTIPATION 08/03/18 20:30 09/02/18 20:29 Meropenem 1 gm/ Sodium Chloride 55 ml @ 110 mls/hr Q8H IVPB 08/05/18 11:30 08/10/18 11:29 Metoprolol Tartrate (Lopressor) 50 mg EVERY 12 HOURS GT 08/03/18 21:00 09/02/18 20:59 08/05/18 09:23 Multivitamins (Multivitamins W/ Minerals 15ml Liquid) 15 ml DAILY GT 08/04/18 09:00 09/03/18 08:59 08/05/18 09:23 Ondansetron HCl (Zofran) 4 mg Q8H PRN IVP Nausea & Vomiting 08/03/18 20:30 09/02/18 20:29 Pyrazinamide (Pza) 1,000 mg DAILY GT 08/04/18 09:00 09/03/18 08:59 08/05/18 09:22 Pyridoxine HCl (Vitamin B6) 100 mg DAILY GT 08/04/18 09:00 09/03/18 08:59 08/05/18 09:14 Rifampin (Rifadin) 600 mg DAILY GT 08/04/18 09:00 09/03/18 08:59 08/05/18 09:24 Sodium Phosphate (Fleet's Sodium Phosl Enema) 133 ml DAILYPRN PRN RECTAL constipation 08/03/18 20:30 09/02/18 20:29 Zinc Sulfate (Zinc Sulfate) 220 mg DAILY GT 08/04/18 09:00 09/03/18 08:59 08/05/18 09:13 Nakul Cisse MD Aug 05, 2018 11:14
--- NOTE | 2018-08-05 11:18 | General Progress Note ---
Assessment/Plan Problem List: (1) Toxic metabolic encephalopathy ICD Codes: G92 - Toxic encephalopathy SNOMED: 111489275 (2) Status epilepticus ICD Codes: G40.901 - Epilepsy, unspecified, not intractable, with status epilepticus SNOMED: 980046777 (3) Hyperlipidemia ICD Codes: E78.5 - Hyperlipidemia, unspecified SNOMED: 21169826 (4) Dementia ICD Codes: F03.90 - Unspecified dementia without behavioral disturbance SNOMED: 49141070 (5) Aspiration pneumonia ICD Codes: J69.0 - Pneumonitis due to inhalation of food and vomit SNOMED: 818935546 (6) Abnormal LFTs ICD Codes: R94.5 - Abnormal results of liver function studies SNOMED: 104926653 (7) Aspiration pneumonia ICD Codes: J69.0 - Pneumonitis due to inhalation of food and vomit SNOMED: 016775313 (8) Encephalopathy ICD Codes: G93.40 - Encephalopathy, unspecified SNOMED: 29372700 (9) Sepsis ICD Codes: A41.9 - Sepsis, unspecified organism SNOMED: 53535612 (10) UTI (urinary tract infection), bacterial ICD Codes: N39.0 - Urinary tract infection, site not specified; A49.9 - Bacterial infection, unspecified SNOMED: 895165220 Status: stable, progressing Assessment/Plan cont iv abx follow up cultures echo vent support resp rx tb meds wound care Subjective ROS Limited/Unobtainable: Yes Constitutional: Reports: malaise, weakness HEENT: Reports: no symptoms Cardiovascular: Reports: no symptoms Respiratory: Reports: cough Gastrointestinal/Abdominal: Reports: difficulty swallowing Genitourinary: Reports: no symptoms Neurologic/Psychiatric: Reports: pre-existing deficit, seizure Endocrine: Reports: no symptoms Hematologic/Lymphatic: Reports: anemia Allergies: Coded Allergies: No Known Allergies (Unverified , 01/27/17) All Systems: reviewed and negative except above Subjective no events. w/o complaints. stable on the vent. opens eyes. wbc tredning down. multiple positive cultures Objective Last 24 Hour Vital Signs Date Time Temp Pulse Resp B/P (MAP) Pulse Ox O2 Delivery O2 Flow Rate FiO2 08/05/18 09:23 78 136/60 08/05/18 09:23 78 136/60 08/05/18 08:35 81 16 30 08/05/18 08:07 82 08/05/18 08:00 98.6 78 22 136/60 (85) 100 08/05/18 07:28 90 16 30 08/05/18 05:03 76 15 30 08/05/18 04:00 30 08/05/18 04:00 98.7 70 23 125/57 (79) 100 08/05/18 04:00 Mechanical Ventilator 08/05/18 03:39 68 08/05/18 02:29 71 17 30 08/05/18 01:08 66 15 30 08/05/18 00:00 Mechanical Ventilator 08/05/18 00:00 97.5 70 17 120/67 (84) 100 08/04/18 23:56 69 08/04/18 23:15 65 14 30 08/04/18 21:46 68 13 30 08/04/18 21:10 68 143/76 08/04/18 20:23 68 14 30 08/04/18 20:00 Mechanical Ventilator 08/04/18 20:00 97.7 72 19 130/63 (85) 100 08/04/18 20:00 30 08/04/18 19:15 68 08/04/18 17:09 88 20 30 08/04/18 16:00 73 08/04/18 16:00 30 08/04/18 16:00 Mechanical Ventilator 08/04/18 16:00 97.7 71 20 142/70 (94) 100 08/04/18 15:23 86 20 30 08/04/18 12:30 80 22 30 08/04/18 12:00 74 08/04/18 12:00 30 08/04/18 12:00 Mechanical Ventilator 08/04/18 12:00 97.7 82 21 117/59 (78) 100 Intake and Output 08/04/18 08/05/18 18:59 06:59 Intake Total 180 ml 920 ml Output Total 500 ml 400 ml Balance -320 ml 520 ml Intake Free Water 60 ml IV Total 370 ml Tube Feeding 180 ml 390 ml Other 100 ml Output Urine Total 500 ml 400 ml # Bowel Movements 2 Laboratory Tests 08/05/18 03:10: White Blood Count 10.9H, Red Blood Count 3.13L, Hemoglobin 9.3L, Hematocrit 27.3L, Mean Corpuscular Volume 87, Mean Corpuscular Hemoglobin 29.7, Mean Corpuscular Hemoglobin Concent 34.0, Red Cell Distribution Width 16.5H, Platelet Count 312, Mean Platelet Volume 4.7L, Neutrophils (%) (Auto) 84.8H, Lymphocytes (%) (Auto) 6.6L, Monocytes (%) (Auto) 7.8, Eosinophils (%) (Auto) 0.7, Basophils (%) (Auto) 0.2, Sodium Level 140, Potassium Level 3.2L, Chloride Level 101, Carbon Dioxide Level 29, Anion Gap 10, Blood Urea Nitrogen 27H, Creatinine 0.7, Estimat Glomerular Filtration Rate , Glucose Level 102, Calcium Level 8.4L Height (Feet): 6 Height (Inches): 2.00 Weight (Pounds): 115 General Appearance: WD/WN, lethargic, confused Neck: supple Cardiovascular: normal peripheral pulses Respiratory/Chest: chest wall non-tender, lungs clear, normal breath sounds, no respiratory distress, no accessory muscle use Abdomen: normal bowel sounds, non tender, soft, no organomegaly Edema: no edema noted Arm (L), no edema noted Arm (R), no edema noted Leg (L), no edema noted Leg (R), no edema noted Pedal (L), no edema noted Pedal (R), no edema noted Generalized Neurologic: disoriented, unresponsive, aphasia Jarrod Vásquez MD Aug 05, 2018 11:18
--- NOTE | 2018-08-05 11:45 | Consultation ---
DATE OF CONSULTATION: 08/05/2018 INFECTIOUS DISEASES CONSULTATION CONSULTING PHYSICIAN: Sergio Urban M.D. REFERRING PHYSICIAN: Jarrod Vásquez M.D. REASON FOR CONSULTATION: Pneumonia and urinary tract infection. HISTORY OF PRESENTING ILLNESS: This is a 73-year-old gentleman with history of stroke, encephalopathy, COPD, respiratory failure, status post tracheostomy, pulmonary tuberculosis on TB medications, who was transferred from a senior care facility with shortness of breath, cough, and congestion. He was found to have a pneumonia and urinary tract infection and an Infectious Diseases consultation has been obtained for antibiotics. PAST MEDICAL HISTORY: 1. History of CVA. 2. Encephalopathy. 3. COPD. 4. Respiratory failure, status post tracheostomy. 5. Pulmonary tuberculosis. 6. History of anemia. 7. Status post G-tube placement. SOCIAL HISTORY: He does not smoke, drink, or use drugs. FAMILY HISTORY: Unknown. REVIEW OF SYSTEMS: Unable to obtain currently. MEDICATIONS: As an inpatient, the patient is on IV vancomycin, amlodipine, ascorbic acid, aspirin, docusate, isoniazid, multivitamin, zinc sulfate, pyrazinamide, pyridoxine, rifampin, Levaquin, Unasyn, atorvastatin, doxazosin, Prevacid, Keppra, Lopressor, subcutaneous heparin, bisacodyl, Artificial Tears, magnesium hydroxide, Tylenol, and Zofran. ALLERGIES: No known drug allergies. PHYSICAL EXAMINATION: VITAL SIGNS: Temperature of 98.6, T-max of 100.6, pulse of 78, respiratory rate of 16, blood pressure 136/60, and O2 saturation of 100%. HEENT: Pupils equally reactive to light and accommodation. Mouth appears clean without thrush. NECK: Supple. No adenopathy. No JVD. CARDIOVASCULAR: Regular rate and rhythm. No murmurs. LUNGS: Clear to auscultation bilaterally. No crackles. No wheezes. ABDOMEN: Soft and nontender. No organomegaly. G-tube site appears clean. EXTREMITIES: No cyanosis, no clubbing, no edema. LABORATORY AND DIAGNOSTIC DATA: White count of 22 on 08/03/2018, white count 10.9 now, hemoglobin 9.3, hematocrit 27.3, MCV 87, platelet count of 312 with neutrophils of 84%. Sodium 140, potassium 3.2, chloride 101, bicarb 29, BUN 27, creatinine 0.7, glucose 102, calcium 8.4. Total bilirubin 1.4. AST 40, ALT 10, and alkaline phosphatase 328. CK of 103. Total protein 7. Albumin 1.5. UA showing 60 to 80 white cells. Urine culture is growing gram-negative rods. Sputum cultures are pending. Rectal swab was positive for VRE. Nasal swab was negative for MRSA. Urine culture is growing E. coli, which is an ESBL susceptible to ertapenem, imipenem, tigecycline, Bactrim. Intermediate to piperacillin, tazobactam. Blood cultures from 08/03/2018 showing gram-negative rods. Chest x-ray is showing airspace and interstitial infiltrate bilaterally, right greater than the left. ASSESSMENT: This is a 73-year-old gentleman with history of encephalopathy, CVA, respiratory failure, status post tracheostomy, pulmonary TB, who comes in with. 1. Gram-negative sepsis, probably secondary to urinary tract infection. 2. ESBL E. coli urinary tract infection. 3. Acute pulmonary tuberculosis on medications. 4. COPD. 5. Encephalopathy. 6. Leukocytosis is improving. PLAN: 1. Discontinue vancomycin, Levaquin, and Unasyn. 2. We will start the patient on meropenem. 3. We will follow up cultures and adjust antibiotics accordingly. 4. Continue isoniazid, rifampin, and pyrazinamide along with pyridoxin. I would like to thank Dr. Vásquez, for this consultation. Sergio Urban M.D. DR: LIZETT JOB#: [id number] CC: Jarrod Vásquez M.D.
[2018-08-05] MEDS: Meropenem 1 GM in NS 55 ML IVPB SCH ×2 (11:52→19:35)
[2018-08-05 12:00] VITALS: BP 133/69
--- NOTE | 2018-08-05 13:02 | Consultation ---
History of Present Illness General Chief Complaint: Dyspnea/Respdistress Present Illness HPI 73 year old male well known to me from prior admissions. currently admitted for medical care and management. on admission noted to have multiple wounds requiring care. surgery called to evaluate and assist with management. patient seen, chart reviewed, patient examined. Allergies: Coded Allergies: No Known Allergies (Unverified , 01/27/17) Medication History Scheduled Acetaminophen 160MG/5ML* (Acetaminophen*), 20 ML GT DAILY, (Reported) Amlodipine Besylate* (Amlodipine Besylate*), 10 MG GT DAILY, (Reported) Ascorbic Acid* (Ascorbic Acid*), 500 MG GT DAILY, (Reported) Aspirin* (Aspirin*), 81 MG GT DAILY, (Reported) Atorvastatin Calcium* (Lipitor*), 10 MG GT BEDTIME Docusate Sodium* (Colace*), 100 MG GT DAILY, (Reported) Doxazosin Mesylate* (Cardura*), 1 MG GT QHS, (Reported) Isoniazid (Isoniazid), 300 MG GT DAILY, (Reported) Lansoprazole* (Lansoprazole*), 30 MG ORAL Q12HR Levetiracetam* (Levetiracetam*), 750 MG GT BID, (Reported) Metoprolol Tartrate* (Metoprolol Tartrate*), 50 MG GT EVERY 12 HOURS, (Reported) Multivitamin With Minerals (Multivitamins With Minerals*), 1 TAB GT DAILY, ( Reported) Protein Supplement (Promod), 30 ML GT DAILY, (Reported) Pyrazinamide (Pyrazinamide), 1,000 MG GT DAILY, (Reported) Pyridoxine Hcl (Vitamin B-6), 100 MG GT DAILY, (Reported) Rifampin (Rifampin), 600 MG GT DAILY, (Reported) Zinc Sulfate (Zinc Sulfate*), 220 MG GT DAILY, (Reported) Scheduled PRN Acetaminophen 160MG/5ML* (Acetaminophen*), 20 ML GT Q4HR PRN for Fever/Headache/ Mild Pain, (Reported) Bisacodyl (Dulcolax), 10 MG RC DAILY PRN for IF MOM INEFFECTIVE, (Reported) Dextran 70/Hypromellose (Artificial Tears Eye Drops*), 2 DROP BOTH EYES for DRY EYES, (Reported) Magnesium Hydroxide* (Milk Of Magnesia*), 30 ML GT DAILY PRN for IF DOCUSATE INEFECTIVE, (Reported) Na Phos,M-B/Na Phos,Di-Ba* (Fleet Enema*), 133 ML RECTAL PRN PRN for Q 2 DAYS, ( Reported) Discontinued Medications Cranberry Extract (Cranberry), 425 MG PO BID, (Reported) Discontinued Reason: Therapy completed Dextran 70/Hypromellose (Artificial Tears Eye Drops*), 2 DROP BOTH EYES FIVE TIMES A DAY PRN Discontinued Reason: Therapy completed Docusate Sodium (Docusate Sodium), 100 MG ORAL DAILY Discontinued Reason: Medication dose changed Ethambutol Hcl* (Myambutol*), 800 MG ORAL DAILY Discontinued Reason: Therapy completed Famotidine (Famotidine), 20 MG GT DAILY, (Reported) Discontinued Reason: Therapy completed Imipenem/Cilastatin Sodium (Imipenem-Cilastatin 500 Mg Vl), 500 MG IV DAILY Discontinued Reason: Therapy completed Ipratropium/Albuterol Sulfate (DuoNeb 0.5-3(2.5)mg/3ml), 3 ML HHN EVERY 4 HOURS, (Reported) Discontinued Reason: Therapy completed Midodrine (Midodrine HCl), 2.5 MG GT THREE TIMES A DAY, (Reported) Discontinued Reason: Therapy completed Pyridoxine HCl (Pyridoxine HCl), 50 MG ORAL DAILY Discontinued Reason: Therapy completed Sennosides (Senokot), 8.6 MG GT BID PRN for Constipation, (Reported) Discontinued Reason: Therapy completed Tamsulosin Hcl (Tamsulosin Hcl*), 0.4 MG GT BEDTIME, (Reported) Discontinued Reason: Therapy completed [Minocycline HCl], 100 MG ORAL Q12HR Discontinued Reason: Therapy completed [Vitamin B 12], 1,000 MCG SQ MONTHLY, (Reported) Discontinued Reason: Therapy completed Patient History Limited by: medical condition History Provided By: Medical Record, PMD Healthcare decision maker N Resuscitation status Full Code Advanced Directive on File Past Medical/Surgical History Past Medical/Surgical History: (1) Decubitus ulcer (2) Vitamin B 12 deficiency (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 (4) decu (5) HTN (hypertension) (6) Encephalopathy acute (7) BPH (benign prostatic hyperplasia) (8) Probable sepsis (9) UTI (urinary tract infection) (10) Pneumonia (11) Dehydration (12) Dyspnea (13) Respiratory distress (14) Dementia (15) Hyperlipidemia (16) Aspiration pneumonia (17) Aspiration pneumonia (18) Encephalopathy (19) Sepsis (20) Status epilepticus (21) Abnormal LFTs (22) UTI (urinary tract infection), bacterial (23) Toxic metabolic encephalopathy Review of Systems ROS Narrative cannot obtain Physical Exam General Appearance: no apparent distress Lines, tubes and drains: other HEENT: mucous membranes moist, other Neck: other Respiratory/Chest: no respiratory distress, no accessory muscle use Cardiovascular/Chest: regular rhythm Abdomen: soft, no organomegaly, no mass Extremities: other Skin Exam: other Last 24 Hour Vital Signs Date Time Temp Pulse Resp B/P (MAP) Pulse Ox O2 Delivery O2 Flow Rate FiO2 08/05/18 11:22 78 16 30 08/05/18 09:23 78 136/60 08/05/18 09:23 78 136/60 08/05/18 08:35 81 16 30 08/05/18 08:07 82 08/05/18 08:00 30 08/05/18 08:00 Mechanical Ventilator 08/05/18 08:00 98.6 78 22 136/60 (85) 100 08/05/18 07:28 90 16 30 08/05/18 05:03 76 15 30 08/05/18 04:00 30 08/05/18 04:00 98.7 70 23 125/57 (79) 100 08/05/18 04:00 Mechanical Ventilator 08/05/18 03:39 68 08/05/18 02:29 71 17 30 08/05/18 01:08 66 15 30 08/05/18 00:00 Mechanical Ventilator 08/05/18 00:00 97.5 70 17 120/67 (84) 100 08/04/18 23:56 69 08/04/18 23:15 65 14 30 08/04/18 21:46 68 13 30 08/04/18 21:10 68 143/76 08/04/18 20:23 68 14 30 08/04/18 20:00 Mechanical Ventilator 08/04/18 20:00 97.7 72 19 130/63 (85) 100 08/04/18 20:00 30 08/04/18 19:15 68 08/04/18 17:09 88 20 30 08/04/18 16:00 73 08/04/18 16:00 30 12/31/18 16:00 Mechanical Ventilator 08/04/18 16:00 97.7 71 20 142/70 (94) 100 08/04/18 15:23 86 20 30 Intake and Output 08/04/18 08/05/18 18:59 06:59 Intake Total 180 ml 920 ml Output Total 500 ml 400 ml Balance -320 ml 520 ml Intake Free Water 60 ml IV Total 370 ml Tube Feeding 180 ml 390 ml Other 100 ml Output Urine Total 500 ml 400 ml # Bowel Movements 2 Laboratory Tests Test 08/05/18 03:10 White Blood Count 10.9 K/UL (4.8-10.8) H Red Blood Count 3.13 M/UL (4.70-6.10) L Hemoglobin 9.3 G/DL (14.2-18.0) L Hematocrit 27.3 % (42.0-52.0) L Mean Corpuscular Volume 87 FL (80-99) Mean Corpuscular Hemoglobin 29.7 PG (27.0-31.0) Mean Corpuscular Hemoglobin Concent 34.0 G/DL (32.0-36.0) Red Cell Distribution Width 16.5 % (11.6-14.8) H Platelet Count 312 K/UL (150-450) Mean Platelet Volume 4.7 FL (6.5-10.1) L Neutrophils (%) (Auto) 84.8 % (45.0-75.0) H Lymphocytes (%) (Auto) 6.6 % (20.0-45.0) L Monocytes (%) (Auto) 7.8 % (1.0-10.0) Eosinophils (%) (Auto) 0.7 % (0.0-3.0) Basophils (%) (Auto) 0.2 % (0.0-2.0) Sodium Level 140 MMOL/L (136-145) Potassium Level 3.2 MMOL/L (3.5-5.1) L Chloride Level 101 MMOL/L (98-107) Carbon Dioxide Level 29 MMOL/L (21-32) Anion Gap 10 mmol/L (5-15) Blood Urea Nitrogen 27 mg/dL (7-18) H Creatinine 0.7 MG/DL (0.55-1.30) Estimat Glomerular Filtration Rate mL/min (>60) Glucose Level 102 MG/DL (74-106) Calcium Level 8.4 MG/DL (8.5-10.1) L Height (Feet): 6 Height (Inches): 2.00 Weight (Pounds): 115 Medications Current Medications Medications (Trade) Dose Ordered Sig/Iram Route PRN Reason Start Time Stop Time Status Last Admin Dose Admin Acetaminophen (Tylenol) 650 mg Q6H PRN GT Mild Pain/Temp > 101.0 08/03/18 20:30 09/02/18 20:29 08/04/18 08:52 Amlodipine Besylate (Norvasc) 10 mg DAILY GT 08/04/18 09:00 09/03/18 08:59 08/05/18 09:23 Artificial Tears (Akwa-Tears) 2 drop DAILYPRN PRN BOTH EYES DRY EYES 08/03/18 20:30 09/02/18 20:29 Ascorbic Acid (Vitamin C) 500 mg DAILY GT 08/04/18 09:00 09/03/18 08:59 08/05/18 09:23 Aspirin (ASA) 81 mg DAILY GT 08/04/18 09:00 09/03/18 08:59 08/05/18 09:13 Atorvastatin Calcium (Lipitor) 10 mg BEDTIME GT 08/03/18 21:00 09/02/18 20:59 08/04/18 21:09 Bisacodyl (Dulcolax) 10 mg DAILYPRN PRN RECTAL constipation 08/03/18 20:30 09/02/18 20:29 Docusate Sodium (Colace) 100 mg DAILY GT 08/04/18 09:00 09/03/18 08:59 08/05/18 09:24 Doxazosin Mesylate (Cardura) 1 mg QHS GT 08/03/18 21:00 09/02/18 20:59 08/04/18 21:09 Heparin Sodium (Porcine) (Heparin 5000 units/ml) 5,000 units EVERY 12 HOURS SUBQ 08/03/18 21:00 09/02/18 20:59 08/05/18 09:26 Isoniazid (Inh) 300 mg DAILY GT 08/04/18 09:00 09/03/18 08:59 08/05/18 09:23 Lansoprazole (Prevacid) 30 mg Q12HR GT 08/03/18 21:00 09/02/18 20:59 08/05/18 09:23 Levetiracetam (Keppra) 750 mg Q12HR GT 08/03/18 21:00 09/02/18 20:59 08/05/18 09:55 Magnesium Hydroxide (Mom) 30 ml DAILYPRN PRN GT CONSTIPATION 08/03/18 20:30 09/02/18 20:29 Meropenem 1 gm/ Sodium Chloride 55 ml @ 110 mls/hr Q8H IVPB 08/05/18 11:30 08/10/18 11:29 08/05/18 11:52 Metoprolol Tartrate (Lopressor) 50 mg EVERY 12 HOURS GT 08/03/18 21:00 09/02/18 20:59 08/05/18 09:23 Multivitamins (Multivitamins W/ Minerals 15ml Liquid) 15 ml DAILY GT 08/04/18 09:00 09/03/18 08:59 08/05/18 09:23 Ondansetron HCl (Zofran) 4 mg Q8H PRN IVP Nausea & Vomiting 08/03/18 20:30 09/02/18 20:29 Pyrazinamide (Pza) 1,000 mg DAILY GT 08/04/18 09:00 09/03/18 08:59 08/05/18 09:22 Pyridoxine HCl (Vitamin B6) 100 mg DAILY GT 08/04/18 09:00 09/03/18 08:59 08/05/18 09:14 Rifampin (Rifadin) 600 mg DAILY GT 08/04/18 09:00 09/03/18 08:59 08/05/18 09:24 Sodium Phosphate (Fleet's Sodium Phosl Enema) 133 ml DAILYPRN PRN RECTAL constipation 08/03/18 20:30 09/02/18 20:29 Zinc Sulfate (Zinc Sulfate) 220 mg DAILY GT 08/04/18 09:00 09/03/18 08:59 08/05/18 09:13 Assessment/Plan Problem List: (1) Decubitus ulcer Assessment & Plan: Pt presents with multiple pressure injuries present on admission. R trochanteric full thickness pressure injury (L)4.5cm x (W)2.7cm ,wound bed maroon centrally with epithelialized borders.Periwound darker skin tone without induration.Minimal serous exudate noted. Partial thickness wound lumbar spine (L)5cm x (W)9.5cm ,Wound bed viable with additional openings along edges and periwound.Minimal sanguineous exudate noted. Second full thickness pressure injury noted to lumbar sacral area with 100% yellow slough (L)0.5cm x (W)0.7cm.Darker skin tone without induration noted periwound. Full thickness pressure injury R ischium (L)6cm x (W)3cm ,Wound bed granular , edges adherent and flat .Periwound intact. Gross erythema with partial thickness erosion extending from suprapubis, Bilateral groin and scrotum noted. Bilateral heels are dry without fluctuance with scattered dark pigmentations. Tx.Plan Cleanse wound R trochanter with Saline;Apply Hydrogel .Cavilon Skin Barrier periwound .Cover with Optifoam Drsg Daily ad prn. Cleanse wound Lumbar spine with Saline.Apply Hydrogel .Cavilon Skin barrier periwound .Cover with Optifoam drsg Daily and prn. Cleanse wound Lumbar sacral with Saline.Apply TheraHoney gel.Cavilon Skin Barrier Periwound .Cover with Optifoam drsg Daily and prn. Cleanse R ischial wound with Saline.Apply Hydrogel.Cavilon Skin Barrier periwound.Cover with Optifoam drsg Daily and prn. Cavilon Skin Barrier to both heels. Off-load with pillow. Air fluidized mattress. Reposition at least every 2 hours or as tolerated. ICD Codes: L89.90 - Pressure ulcer of unspecified site, unspecified stage SNOMED: [id number] Qualifiers: Zev Candelaria Aug 05, 2018 13:02
[2018-08-05 16:00] VITALS: BP 145/71
--- NOTE | 2018-08-05 17:00 | NUR ---
NURSE NOTES: Pt had a large BM diarrhea like brown in color,bed bath given,kept dry and clean,turned and repositioned ,oral tracheal secretions suctioned PRN
--- NOTE | 2018-08-05 19:08 | NUR ---
HAND-OFF: Report given to Ambrose Cary RN,pt stable no resp disitress presented during the shift, at bedside..
--- NOTE | 2018-08-05 19:20 | NUR ---
NURSE NOTES: Report received from LALA Guzmán. Observed pt sleeping on the bed. pt obtunded, open eyes, but non-verbal. Telemonitoring: SR. Pt has trach on vent, Shiley 6, AC 12, TD 500, FiO2 30%, PEEP 5, with no distress noted. G-tube is intact and patent, running Vital 1.5 @ 60cc/hr. F/C is intact and draining well. IV site on R FA 20G saline lock, intact and patent. L H 20 G intact and patent. Bed in the lowest position. Side rails padded and up x3. Call light within reach. Will continue to monitor.
--- NOTE | 2018-08-05 19:28 | NUR ---
RESPIRATORY NOTE: Received pt on current vent settings. SPO2 99%, HR 85. No s/s of respiratory distress. Large amount of yellow secretions and will sxn as needed. Alarms are on and audible. Vent is plugged into red outlet. Ambu bag is at the bedside. Will continue to monitor pt.
[2018-08-05 20:00] VITALS: BP 129/68
[2018-08-05] MEDS: Doxazosin 1mg Tab GT SCH (20:59)
[2018-08-06] VITALS: BP 128/67
[2018-08-06] MEDS: Meropenem 1 GM in NS 55 ML IVPB SCH ×3 (03:35→19:34)
[2018-08-06 04:00] VITALS: BP 142/70
--- NOTE | 2018-08-06 07:15 | NUR ---
RESPIRATORY NOTE: Patient received mechanically ventilated on PB 840 with current ordered vent settings. Pt has trach size 6.0 Shiley cuffed that is secured with a trach tie and guard. Patient presents with bilateral coarse breath sounds and suctioned moderate amount of thick white/yellow secretions without incident. There is an ambu bag available at the bedside and the vent is connected to a red outlet. Vent alarms are audible and functional. Will continue to monitor.
--- NOTE | 2018-08-06 07:15 | NUR ---
NURSE NOTES: RECEIVED BED SIDE REPORT FROM PADILLA REEVES OF NOC SHIFT .RECEIVED PT WITH HOB ELEVATED 45 DEGRE ,TRACH TO VENT TOLERATING WELL CURRENTS VENT SETTINGS, O2 SAT 97%.RENDERED TRACH CARE AND SX,D LG AMT OF THICK WHITE SECRETIONS,ALSO PROVIDE ORAL CARE.PT WITH GT RECEIVING VITAL 1.2 @ 60CC /HRS ,NO RESIDUAL NOTED.FULL BODY ASSESSMENT DONE.PT REPOSITIONED Q 2HRS TO PROVIDE COMFORT AND TO PREVENT FURTHER SKIN BREAK DOWN.NO ACUTE DISTRESS NOTED AT THIS TIME.WILL CONT TO MONITOR.
--- NOTE | 2018-08-06 07:45 | NUR ---
HAND-OFF: Report given to LALA Rosas. Observed pt sleeping on the bed. No acute distress noted.
[2018-08-06 08:00] VITALS: BP 151/75
--- NOTE | 2018-08-06 08:49 | Pulmonology Progress Note ---
Assessment/Plan Assessment/Plan respiratory failure tachycardia sepsis leukocytosis anemia severe protein calorie malnutrition trach GT aspiration possible pneumonia urosepsis PLAN care noted and reviewed IV antibiotics- cultures/sens noted ID follow up respiratory care Ventilatory support without change aspiration precautions optimize SNF meds supportive care suction as needed no wean oxygen therapy monitor labs nutrition prognosis guarded impression, plan, and exam edited and reviewed in detail care discussed with RN Subjective ROS Limited/Unobtainable: Yes Allergies: Coded Allergies: No Known Allergies (Unverified , 01/27/17) Subjective multiple positive cultures and sens noted on vent/poorly responsive care noted Objective Last 24 Hour Vital Signs Date Time Temp Pulse Resp B/P (MAP) Pulse Ox O2 Delivery O2 Flow Rate FiO2 08/06/18 08:00 30 08/06/18 08:00 98.2 77 24 151/75 (100) 97 08/06/18 08:00 Mechanical Ventilator 08/06/18 07:09 79 22 30 08/06/18 05:10 72 18 30 08/06/18 04:00 Mechanical Ventilator 08/06/18 04:00 74 08/06/18 04:00 98.8 74 23 142/70 (94) 100 08/06/18 04:00 30 08/06/18 03:00 75 21 30 08/06/18 00:35 75 20 30 08/06/18 00:00 30 08/06/18 00:00 98.9 77 19 128/67 (87) 100 08/06/18 00:00 Mechanical Ventilator 08/05/18 22:46 76 20 30 08/05/18 20:59 83 129/68 08/05/18 20:34 82 18 30 08/05/18 20:00 85 08/05/18 20:00 Mechanical Ventilator 08/05/18 20:00 30 08/05/18 20:00 98.9 83 20 129/68 (88) 100 08/05/18 19:27 86 19 30 08/05/18 17:00 84 22 30 08/05/18 16:00 30 08/05/18 16:00 98.6 85 20 145/71 (95) 95 08/05/18 16:00 Mechanical Ventilator 08/05/18 15:33 88 08/05/18 14:30 87 21 30 08/05/18 13:11 80 08/05/18 12:30 82 16 30 08/05/18 12:00 30 08/05/18 12:00 98.2 82 20 133/69 (90) 98 08/05/18 12:00 Mechanical Ventilator 08/05/18 11:22 78 16 30 08/05/18 09:23 78 136/60 08/05/18 09:23 78 136/60 Intake and Output 08/05/18 08/06/18 19:00 07:00 Intake Total 590 ml 970 ml Output Total 500 ml 350 ml Balance 90 ml 620 ml Intake Free Water 100 ml 200 ml IV Total 110 ml Tube Feeding 370 ml 660 ml Other 120 ml Output Urine Total 500 ml 350 ml # Bowel Movements 3 1 Objective WDWN trach reduced breath sounds bilaterally without rhonchi or wheeze [id number] without MRG NABS nontender no HSM; GT no CCE contracted nonfocal Microbiology Date/Time Source Procedure Growth Status 08/03/18 11:20 Blood Blood Culture - Final Escherichia Coli - Esbl Complete 08/03/18 11:10 Blood Blood Culture - Final Enterococcus Faecalis Complete 08/04/18 01:10 Sputum Gram Stain - Final Resulted 08/04/18 01:10 Sputum Culture - Preliminary Gram Negative Bacillus 1 Usual Respiratory Jes Resulted 08/03/18 12:01 Nasal Nares MRSA Culture - Final NO METHICILLIN RESISTANT STAPH AUREUS... Complete 08/04/18 01:30 Indwelling Cath Urine Culture - Final Escherichia Coli - Esbl Complete 08/03/18 11:45 Urine,Clean Catch Urine Culture - Final Escherichia Coli - Esbl Complete 08/03/18 12:01 Rectum VRE Culture - Final Enterococcus Faecium - Vre Complete 08/03/18 12:01 Rectum - Final NO CARBAPENEM-RESISTANT ENTEROBACTERI... Complete Laboratory Tests 08/06/18 07:10: Vancomycin Level Trough 7.0 Current Medications Medications (Trade) Dose Ordered Sig/Iram Route PRN Reason Start Time Stop Time Status Last Admin Dose Admin Acetaminophen (Tylenol) 650 mg Q6H PRN GT Mild Pain/Temp > 101.0 08/03/18 20:30 09/02/18 20:29 08/04/18 08:52 Amlodipine Besylate (Norvasc) 10 mg DAILY GT 08/04/18 09:00 09/03/18 08:59 08/05/18 09:23 Artificial Tears (Akwa-Tears) 2 drop DAILYPRN PRN BOTH EYES DRY EYES 08/03/18 20:30 09/02/18 20:29 Ascorbic Acid (Vitamin C) 500 mg DAILY GT 08/04/18 09:00 09/03/18 08:59 08/05/18 09:23 Aspirin (ASA) 81 mg DAILY GT 08/04/18 09:00 09/03/18 08:59 08/05/18 09:13 Atorvastatin Calcium (Lipitor) 10 mg BEDTIME GT 08/03/18 21:00 09/02/18 20:59 08/05/18 20:59 Bisacodyl (Dulcolax) 10 mg DAILYPRN PRN RECTAL constipation 08/03/18 20:30 09/02/18 20:29 Docusate Sodium (Colace) 100 mg DAILY GT 08/04/18 09:00 09/03/18 08:59 08/05/18 09:24 Doxazosin Mesylate (Cardura) 1 mg QHS GT 08/03/18 21:00 09/02/18 20:59 08/05/18 20:59 Heparin Sodium (Porcine) (Heparin 5000 units/ml) 5,000 units EVERY 12 HOURS SUBQ 08/03/18 21:00 09/02/18 20:59 08/05/18 21:05 Isoniazid (Inh) 300 mg DAILY GT 08/04/18 09:00 09/03/18 08:59 08/05/18 09:23 Lansoprazole (Prevacid) 30 mg Q12HR GT 08/03/18 21:00 09/02/18 20:59 08/05/18 20:59 Levetiracetam (Keppra) 750 mg Q12HR GT 08/03/18 21:00 09/02/18 20:59 08/05/18 21:06 Magnesium Hydroxide (Mom) 30 ml DAILYPRN PRN GT CONSTIPATION 08/03/18 20:30 09/02/18 20:29 Meropenem 1 gm/ Sodium Chloride 55 ml @ 110 mls/hr Q8H IVPB 08/05/18 11:30 08/10/18 11:29 08/06/18 03:35 Metoprolol Tartrate (Lopressor) 50 mg EVERY 12 HOURS GT 08/03/18 21:00 09/02/18 20:59 08/05/18 20:59 Multivitamins (Multivitamins W/ Minerals 15ml Liquid) 15 ml DAILY GT 08/04/18 09:00 09/03/18 08:59 08/05/18 09:23 Ondansetron HCl (Zofran) 4 mg Q8H PRN IVP Nausea & Vomiting 08/03/18 20:30 09/02/18 20:29 Pyrazinamide (Pza) 1,000 mg DAILY GT 08/04/18 09:00 09/03/18 08:59 08/05/18 09:22 Pyridoxine HCl (Vitamin B6) 100 mg DAILY GT 08/04/18 09:00 09/03/18 08:59 08/05/18 09:14 Rifampin (Rifadin) 600 mg DAILY GT 08/04/18 09:00 09/03/18 08:59 08/05/18 09:24 Sodium Phosphate (Fleet's Sodium Phosl Enema) 133 ml DAILYPRN PRN RECTAL constipation 08/03/18 20:30 09/02/18 20:29 Zinc Sulfate (Zinc Sulfate) 220 mg DAILY GT 08/04/18 09:00 09/03/18 08:59 08/05/18 09:13 Nakul Cisse MD Aug 06, 2018 08:49
--- NOTE | 2018-08-06 08:52 | General Progress Note ---
Assessment/Plan Problem List: (1) Toxic metabolic encephalopathy ICD Codes: G92 - Toxic encephalopathy SNOMED: 423781574 (2) Status epilepticus ICD Codes: G40.901 - Epilepsy, unspecified, not intractable, with status epilepticus SNOMED: 432884653 (3) Hyperlipidemia ICD Codes: E78.5 - Hyperlipidemia, unspecified SNOMED: 94603387 (4) Dementia ICD Codes: F03.90 - Unspecified dementia without behavioral disturbance SNOMED: 76730209 (5) Aspiration pneumonia ICD Codes: J69.0 - Pneumonitis due to inhalation of food and vomit SNOMED: 579231608 (6) Abnormal LFTs ICD Codes: R94.5 - Abnormal results of liver function studies SNOMED: 542889169 (7) Aspiration pneumonia ICD Codes: J69.0 - Pneumonitis due to inhalation of food and vomit SNOMED: 469348241 (8) Encephalopathy ICD Codes: G93.40 - Encephalopathy, unspecified SNOMED: 05769778 (9) Sepsis ICD Codes: A41.9 - Sepsis, unspecified organism SNOMED: 86223669 (10) UTI (urinary tract infection), bacterial ICD Codes: N39.0 - Urinary tract infection, site not specified; A49.9 - Bacterial infection, unspecified SNOMED: 054630871 Status: stable, progressing Assessment/Plan cont iv abx follow up cultures echo vent support resp rx tb meds repeat lfts wound care Subjective ROS Limited/Unobtainable: Yes Constitutional: Reports: malaise, weakness HEENT: Reports: no symptoms Cardiovascular: Reports: no symptoms Respiratory: Reports: no symptoms Gastrointestinal/Abdominal: Reports: difficulty swallowing Genitourinary: Reports: no symptoms Neurologic/Psychiatric: Reports: pre-existing deficit, seizure Endocrine: Reports: no symptoms Hematologic/Lymphatic: Reports: anemia Allergies: Coded Allergies: No Known Allergies (Unverified , 01/27/17) All Systems: reviewed and negative except above Subjective no events. w/o complaints. stable on the vent. opens eyes. wbc tredning down. multiple positive cultures no labs today Objective Last 24 Hour Vital Signs Date Time Temp Pulse Resp B/P (MAP) Pulse Ox O2 Delivery O2 Flow Rate FiO2 08/06/18 08:00 30 08/06/18 08:00 98.2 77 24 151/75 (100) 97 08/06/18 08:00 Mechanical Ventilator 08/06/18 07:09 79 22 30 08/06/18 05:10 72 18 30 08/06/18 04:00 Mechanical Ventilator 08/06/18 04:00 74 08/06/18 04:00 98.8 74 23 142/70 (94) 100 08/06/18 04:00 30 08/06/18 03:00 75 21 30 08/06/18 00:35 75 20 30 08/06/18 00:00 30 08/06/18 00:00 98.9 77 19 128/67 (87) 100 08/06/18 00:00 Mechanical Ventilator 08/05/18 22:46 76 20 30 08/05/18 20:59 83 129/68 08/05/18 20:34 82 18 30 08/05/18 20:00 85 08/05/18 20:00 Mechanical Ventilator 08/05/18 20:00 30 08/05/18 20:00 98.9 83 20 129/68 (88) 100 08/05/18 19:27 86 19 30 08/05/18 17:00 84 22 30 08/05/18 16:00 30 08/05/18 16:00 98.6 85 20 145/71 (95) 95 08/05/18 16:00 Mechanical Ventilator 08/05/18 15:33 88 08/05/18 14:30 87 21 30 08/05/18 13:11 80 08/05/18 12:30 82 16 30 08/05/18 12:00 30 08/05/18 12:00 98.2 82 20 133/69 (90) 98 08/05/18 12:00 Mechanical Ventilator 08/05/18 11:22 78 16 30 08/05/18 09:23 78 136/60 08/05/18 09:23 78 136/60 Intake and Output 08/05/18 08/06/18 19:00 07:00 Intake Total 590 ml 970 ml Output Total 500 ml 350 ml Balance 90 ml 620 ml Intake Free Water 100 ml 200 ml IV Total 110 ml Tube Feeding 370 ml 660 ml Other 120 ml Output Urine Total 500 ml 350 ml # Bowel Movements 3 1 Laboratory Tests 08/06/18 07:10: Vancomycin Level Trough 7.0 Height (Feet): 6 Height (Inches): 2.00 Weight (Pounds): 127 Objective General Appearance: WD/WN, lethargic, confused Neck: supple Cardiovascular: normal peripheral pulses Respiratory/Chest: chest wall non-tender, lungs clear, normal breath sounds, no respiratory distress, no accessory muscle use Abdomen: normal bowel sounds, non tender, soft, no organomegaly Edema: no edema noted Arm (L), no edema noted Arm (R), no edema noted Leg (L), no edema noted Leg (R), no edema noted Pedal (L), no edema noted Pedal (R), no edema noted Generalized Neurologic: disoriented, unresponsive, aphasia Jarrod Vásquez MD Aug 06, 2018 08:52
--- NOTE | 2018-08-06 09:23 | Diagnostic Imaging Report ---
Indication: Dyspnea Comparison: 08/03/2018 A single view chest radiograph was obtained. Findings: Patchy bilateral infiltrates are present. Heart size is stable. Tracheostomy noted. Lungs are hyperexpanded. IMPRESSION: No significant change. Bilateral infiltrates
[2018-08-06] MEDS: Docusate 100mg/10ml Liq GT SCH (09:37)
[2018-08-06] MEDS: Ascorbic Acid 500mg tab GT SCH (09:38)
[2018-08-06] MEDS: Metoprolol Tartrate 50mg tab GT SCH ×2 (09:38→21:20)
[2018-08-06] MEDS: Aspirin Baby 81mg GT SCH (09:38)
[2018-08-06] MEDS: Zinc Sulfate 220mg cap GT SCH (09:38)
[2018-08-06] MEDS: Isoniazid 300mg tab GT SCH (09:39)
[2018-08-06] MEDS: Multivitamins W/Minerals 15 ML UDC GT SCH (09:39)
[2018-08-06] MEDS: Pyridoxine 50mg tab GT SCH (09:39)
[2018-08-06] MEDS: levETIRAcetam 500mg/5ml Liquid GT SCH ×2 (09:40→21:19)
[2018-08-06] MEDS: Heparin 5000 units/ml inj SUBQ SCH ×2 (09:42→21:23)
[2018-08-06 12:00] VITALS: BP 147/77
--- NOTE | 2018-08-06 14:21 | NUR ---
CASE MANAGEMENT: REVIEW SI: PNA T 98.1 HR 78 RR 20 BP 151/75 SAT 96% MECH VENT FIO2 30 IS: MEROPENEM IV Q8HR NORVASC GT QD ASA GT QD INH GT QD PYRAZINAMIDE GT QD RIFAMPIN GT QD KEPPRA GT Q12HR STEP DOWN UNIT STATUS DCP: PATIENT IS FROM [facility]
[2018-08-06] MEDS ORDERED: Tubing IV Blood Pump IV ONE (14:44)
[2018-08-06] MEDS ORDERED: Tubing IV Secondary IV ONE (14:44)
[2018-08-06] MEDS ORDERED: NS 275ml ONE (14:44)
[2018-08-06 16:00] VITALS: BP 159/86
--- NOTE | 2018-08-06 19:27 | NUR ---
HAND-OFF: Report given to PADILLA REEVES.
--- NOTE | 2018-08-06 19:30 | NUR ---
NURSE NOTES: Report received from LALA Rosas. Observed pt sleeping on the bed. pt obtunded, open eyes, but non-verbal. Telemonitoring: SR. Pt has trach on vent, Shiley 6, AC 12, TD 500, FiO2 30%, PEEP 5, with no distress noted. G-tube is intact and patent, running Vital 1.5 @ 65cc/hr. F/C is intact and draining well. IV site on R FA 20G saline lock, intact and patent. L H 20 G intact and patent. Bed in the lowest position. Side rails padded and up x3. Call light within reach. Will continue to monitor.
[2018-08-06 20:00] VITALS: BP 144/74
[2018-08-06] MEDS: Doxazosin 1mg Tab GT SCH (21:19)
[2018-08-07] VITALS: BP 147/69
--- NOTE | 2018-08-07 | NUR ---
NURSE NOTES: Observed pt sleeping on the bed. Oral care done. V/S within normal range. Turning the patient done. Will continue to monitor.
--- NOTE | 2018-08-07 03:30 | Consultation ---
DATE OF CONSULTATION: 08/06/2018 CARDIOLOGY CONSULTATION CONSULTING PHYSICIAN: Jones Arauz M.D. REQUESTING PHYSICIAN: Jarrod Vásquez M.D. REASON FOR CONSULTATION: Evaluation and management of congestive heart failure in the setting of chronic respiratory failure. HISTORY OF PRESENT ILLNESS: This 73-year-old male has a history of cerebrovascular disease and chronic encephalopathy as well as chronic respiratory failure with tracheostomy. He is on antituberculosis medications at this time. He was admitted to the hospital two days ago with increasing shortness of breath, cough, and congestion. He was febrile with leukocytosis in the emergency room and was started on broad-spectrum antibiotics. I have been asked to address the possibility of congestive heart failure contributing to his symptoms in view of his elevated natriuretic peptide. PAST MEDICAL HISTORY: 1. Cerebrovascular disease with cerebrovascular accident. 2. Respiratory failure with tracheostomy. 3. Pulmonary tuberculosis, on multidrug therapy. 4. Anemia of chronic disease. 5. Hypertension. 6. Paroxysmal atrial fibrillation. 7. Chronic kidney disease. 8. Diastolic dysfunction with history of congestive heart failure. 9. Dysphagia with G-tube. MEDICATIONS: Presently and prior to admission, reviewed and reconciled. ALLERGIES: None. SOCIAL HISTORY: No record of smoking, alcohol, or substance abuse. FAMILY HISTORY: Noncontributory. REVIEW OF SYSTEMS: Not obtainable from the patient. PHYSICAL EXAM: VITAL SIGNS: T-max 99.4, blood pressure 147/69, heart rate 76, and respiratory rate 20. HEENT: Thin, but moderate trach secretions. LUNGS: Coarse breath sounds with rhonchi. Few rales. HEART: Regular rhythm and rate. Normal S1, S2 with a fourth heart sound. ABDOMEN: Soft and nontender. G-tube intact. EXTREMITIES: With contractures, but no edema. LABORATORY DATA: Laboratories from 08/05/2018, white count down to 10.9 from 22.5 on admission and hemoglobin 9.3. ABG on admission pH 7.51, pCO2 36, and pO2 49. Chemistry today sodium 140, potassium 3.2, bicarb 29, BUN 27, and creatinine 0.7. Pro-natriuretic peptide on admission 694. Albumin 1.5 and troponin 0. EKG revealed sinus rhythm with no acute change and nonspecific ST-T wave abnormalities. IMPRESSIONS: 1. Healthcare-acquired pneumonia. 2. Respiratory failure with tracheostomy. 3. Sepsis. 4. Elevated natriuretic peptide assay likely reflective of third-spacing due to severe protein-calorie malnutrition and I do not suspect any significant component of acute congestive heart failure at this time. 5. Hypertensive heart disease. Overall, adequate blood pressure control. 6. Hypokalemia. PLAN: 1. Antimicrobials. 2. Follow up cultures. 3. Respiratory hygiene. 4. DVT prophylaxis. 5. Protein supplement. 6. Replace potassium. 7. Check magnesium. 8. Trend natriuretic peptide assay. 9. Periodic diuretic therapy may be helpful to improve pulmonary oxygenation. Jones Arauz M.D. DR: ERICA JOB#: [id number] CC:
[2018-08-07] MEDS: Meropenem 1 GM in NS 55 ML IVPB SCH ×3 (03:44→22:18)
[2018-08-07 04:00] VITALS: BP 144/74
[2018-08-07 06:13] LABS: BASOPHILS % (AUTO) 0.7 % (0.0-2.0); EOSINOPHILS % (AUTO) 1.7 % (0.0-3.0); HEMOGLOBIN 9.6 G/DL (14.2-18.0); LYMPHOCYTES % (AUTO) 10.2 % (20.0-45.0); MEAN CORPUSCULAR VOLUME 87 FL (80-99); MONOCYTES % (AUTO) 8.4 % (1.0-10.0); PLATELET COUNT 386 K/UL (150-450); RED BLOOD COUNT 3.34 M/UL (4.70-6.10); RED CELL DISTRIBUTION WIDTH 16.5 % (11.6-14.8); WHITE BLOOD COUNT 8.3 K/UL (4.8-10.8)
[2018-08-07 06:29] LABS: ALANINE AMINOTRANSFERASE 11 U/L (12-78); ALBUMIN 1.4 G/DL (3.4-5.0); ALBUMIN/GLOBULIN RATIO 0.3 (1.0-2.7); ALKALINE PHOSPHATASE 358 U/L (46-116); ANION GAP 9 mmol/L (5-15); ASPARTATE AMINO TRANSFERASE 30 U/L (15-37); BILIRUBIN,TOTAL 0.8 MG/DL (0.2-1.0); BLOOD UREA NITROGEN 29 mg/dL (7-18); CALCIUM 8.8 MG/DL (8.5-10.1); CARBON DIOXIDE 29 MMOL/L (21-32); CHLORIDE 109 MMOL/L (98-107); CREATININE 0.7 MG/DL (0.55-1.30); POTASSIUM 3.6 MMOL/L (3.5-5.1); SODIUM 147 MMOL/L (136-145)
--- NOTE | 2018-08-07 06:58 | NUR ---
RESPIRATORY NOTE: Patient received mechanically ventilated on PB 840 with current ordered vent settings. Patient has trach 6.0 Shiley cuffed that is secured with trach tie and guard. . Facial skin is intact with no redness noted at this time. There is bilateral coarse breath sounds present upon auscultation and suctioned moderate amount of thick pale yellow secretions without incident. Vent alarms are functional and audible. Vent is connected to a red outlet and there is an ambu bag available the bedside. Will continue to monitor patient.
--- NOTE | 2018-08-07 07:20 | NUR ---
NURSE NOTES:RECEIVED BED SIDE REPORT FROM PADILLA REEVES OF [employer].RECEIVED PT WITH HOB ELEVATED 45 DEGREE ,NON-VERBAL TRACH TO VENT,SEEMS OBTUNDED.PT TOLERATING WELL CURRENTS VENT SETTINGS.PT RECEIVING VITAL 1.2 @ 60CC /HRS,NO RESIDUAL NOTED.FULL BODY ASSESSMENT DONE.PT REPOSITIONED Q 2 HRS TO PROVIDE COMFORT AND TO PREVENT FURTHER SKIN BREAK DOWN.Ramy OLIVA CAME TO SEE THE PT.ALL AM LAB,S PENDING .NO ACUTE DISTRESS NOTED AT THIS TIME,.WILL CONT TO MONITOR.
--- NOTE | 2018-08-07 07:30 | NUR ---
HAND-OFF: Report given to Ali. No acute distress noted.
[2018-08-07 08:00] VITALS: BP 155/76
--- NOTE | 2018-08-07 08:15 | Pulmonology Progress Note ---
Assessment/Plan Assessment/Plan respiratory failure tachycardia sepsis leukocytosis anemia severe protein calorie malnutrition trach GT aspiration pneumonia urosepsis PLAN care noted and reviewed IV antibiotics- cultures/sens noted ID follow up respiratory care and monitor imaging Ventilatory support without change on AC aspiration precautions optimize for dc SNF meds supportive care suction as needed no wean oxygen therapy monitor labs nutrition as able and monitor albumin levels prognosis guarded impression, plan, and exam edited and reviewed in detail care discussed with RN Subjective ROS Limited/Unobtainable: Yes Allergies: Coded Allergies: No Known Allergies (Unverified , 01/27/17) Subjective cultures and sens noted on vent/poorly responsive care noted Objective Last 24 Hour Vital Signs Date Time Temp Pulse Resp B/P (MAP) Pulse Ox O2 Delivery O2 Flow Rate FiO2 08/07/18 04:59 73 18 30 08/07/18 04:00 Mechanical Ventilator 08/07/18 04:00 30 08/07/18 04:00 73 08/07/18 04:00 98.7 73 17 144/74 (97) 99 08/07/18 03:11 71 18 30 08/07/18 01:30 76 20 30 08/07/18 00:00 Mechanical Ventilator 08/07/18 00:00 99.4 76 20 147/69 (95) 100 08/07/18 00:00 30 08/07/18 00:00 79 08/06/18 23:10 77 19 30 08/06/18 21:46 78 17 30 08/06/18 21:20 90 144/74 08/06/18 20:00 71 08/06/18 20:00 Mechanical Ventilator 08/06/18 20:00 98.6 74 20 144/74 (97) 98 08/06/18 20:00 30 08/06/18 19:12 70 18 30 08/06/18 16:45 81 20 30 08/06/18 16:00 98.6 88 24 159/86 (110) 99 08/06/18 16:00 30 08/06/18 16:00 Mechanical Ventilator 08/06/18 16:00 82 08/06/18 14:59 77 21 30 08/06/18 12:58 78 21 30 08/06/18 12:00 78 08/06/18 12:00 98.1 76 18 147/77 (100) 96 08/06/18 12:00 30 08/06/18 12:00 Mechanical Ventilator 08/06/18 10:34 84 20 30 08/06/18 09:38 81 151/75 08/06/18 09:38 81 151/75 08/06/18 08:32 81 20 30 Intake and Output 08/06/18 08/07/18 19:00 07:00 Intake Total 1075 ml 730 ml Output Total 550 ml 300 ml Balance 525 ml 430 ml Intake Free Water 300 ml 200 ml IV Total 55 ml 110 ml Tube Feeding 720 ml 420 ml Output Urine Total 550 ml 300 ml # Bowel Movements 2 Objective WDWN trach reduced breath sounds bilaterally with scattered rhonchi [id number] without MRG NABS nontender no HSM; GT no CCE contracted nonfocal poorly responsive reviewed and edited Laboratory Tests 08/07/18 05:20: White Blood Count 8.3, Red Blood Count 3.34L, Hemoglobin 9.6L, Hematocrit 29.0L , Mean Corpuscular Volume 87, Mean Corpuscular Hemoglobin 28.6, Mean Corpuscular Hemoglobin Concent 33.0, Red Cell Distribution Width 16.5H, Platelet Count 386, Mean Platelet Volume 4.5L, Neutrophils (%) (Auto) 79.0H, Lymphocytes (%) (Auto) 10.2L, Monocytes (%) (Auto) 8.4, Eosinophils (%) (Auto) 1.7, Basophils (%) (Auto) 0.7, Sodium Level 147H, Potassium Level 3.6, Chloride Level 109H, Carbon Dioxide Level 29, Anion Gap 9, Blood Urea Nitrogen 29H, Creatinine 0.7, Estimat Glomerular Filtration Rate , Glucose Level 88, Calcium Level 8.8, Magnesium Level 1.7L, Total Bilirubin 0.8, Aspartate Amino Transf ( AST/SGOT) 30, Alanine Aminotransferase (ALT/SGPT) 11L, Alkaline Phosphatase 358H , Pro-B-Type Natriuretic Peptide 2174H, Total Protein 6.3L, Albumin 1.4L, Globulin 4.9, Albumin/Globulin Ratio 0.3L Current Medications Medications (Trade) Dose Ordered Sig/Iram Route PRN Reason Start Time Stop Time Status Last Admin Dose Admin Acetaminophen (Tylenol) 650 mg Q6H PRN GT Mild Pain/Temp > 101.0 08/03/18 20:30 09/02/18 20:29 08/04/18 08:52 Amlodipine Besylate (Norvasc) 10 mg DAILY GT 08/04/18 09:00 09/03/18 08:59 08/06/18 09:38 Artificial Tears (Akwa-Tears) 2 drop DAILYPRN PRN BOTH EYES DRY EYES 08/03/18 20:30 09/02/18 20:29 Ascorbic Acid (Vitamin C) 500 mg DAILY GT 08/04/18 09:00 09/03/18 08:59 08/06/18 09:38 Aspirin (ASA) 81 mg DAILY GT 08/04/18 09:00 09/03/18 08:59 08/06/18 09:38 Atorvastatin Calcium (Lipitor) 10 mg BEDTIME GT 08/03/18 21:00 09/02/18 20:59 08/06/18 21:19 Bisacodyl (Dulcolax) 10 mg DAILYPRN PRN RECTAL constipation 08/03/18 20:30 09/02/18 20:29 Docusate Sodium (Colace) 100 mg DAILY GT 08/04/18 09:00 09/03/18 08:59 08/06/18 09:37 Doxazosin Mesylate (Cardura) 1 mg QHS GT 08/03/18 21:00 09/02/18 20:59 08/06/18 21:19 Heparin Sodium (Porcine) (Heparin 5000 units/ml) 5,000 units EVERY 12 HOURS SUBQ 08/03/18 21:00 09/02/18 20:59 08/06/18 21:23 Isoniazid (Inh) 300 mg DAILY GT 08/04/18 09:00 09/03/18 08:59 08/06/18 09:39 Lansoprazole (Prevacid) 30 mg Q12HR GT 08/03/18 21:00 09/02/18 20:59 08/06/18 21:19 Levetiracetam (Keppra) 750 mg Q12HR GT 08/03/18 21:00 09/02/18 20:59 08/06/18 21:19 Magnesium Hydroxide (Mom) 30 ml DAILYPRN PRN GT CONSTIPATION 08/03/18 20:30 09/02/18 20:29 Meropenem 1 gm/ Sodium Chloride 55 ml @ 110 mls/hr Q8H IVPB 08/05/18 11:30 08/10/18 11:29 08/07/18 03:44 Metoprolol Tartrate (Lopressor) 50 mg EVERY 12 HOURS GT 08/03/18 21:00 09/02/18 20:59 08/06/18 21:20 Multivitamins (Multivitamins W/ Minerals 15ml Liquid) 15 ml DAILY GT 08/04/18 09:00 09/03/18 08:59 08/06/18 09:39 Ondansetron HCl (Zofran) 4 mg Q8H PRN IVP Nausea & Vomiting 08/03/18 20:30 09/02/18 20:29 Pyrazinamide (Pza) 1,000 mg DAILY GT 08/04/18 09:00 09/03/18 08:59 08/06/18 09:40 Pyridoxine HCl (Vitamin B6) 100 mg DAILY GT 08/04/18 09:00 09/03/18 08:59 08/06/18 09:39 Rifampin (Rifadin) 600 mg DAILY GT 08/04/18 09:00 09/03/18 08:59 08/06/18 09:37 Sodium Phosphate (Fleet's Sodium Phosl Enema) 133 ml DAILYPRN PRN RECTAL constipation 08/03/18 20:30 09/02/18 20:29 Zinc Sulfate (Zinc Sulfate) 220 mg DAILY GT 08/04/18 09:00 09/03/18 08:59 08/06/18 09:38 Nakul Cisse MD Aug 07, 2018 08:15
[2018-08-07] MEDS: levETIRAcetam 500mg/5ml Liquid GT SCH ×2 (09:00→22:19)
[2018-08-07] MEDS: Docusate 100mg/10ml Liq GT SCH (10:01)
[2018-08-07] MEDS: Metoprolol Tartrate 50mg tab GT SCH ×2 (10:05→21:00)
[2018-08-07] MEDS: Pyridoxine 50mg tab GT SCH (10:07)
[2018-08-07] MEDS: Zinc Sulfate 220mg cap GT SCH (10:07)
[2018-08-07] MEDS: Aspirin Baby 81mg GT SCH (10:08)
[2018-08-07] MEDS: Isoniazid 300mg tab GT SCH (10:08)
[2018-08-07] MEDS: Ascorbic Acid 500mg tab GT SCH (10:08)
[2018-08-07] MEDS: Multivitamins W/Minerals 15 ML UDC GT SCH (10:09)
[2018-08-07] MEDS: Heparin 5000 units/ml inj SUBQ SCH ×2 (10:11→22:23)
--- NOTE | 2018-08-07 11:15 | Infectious Diseases Prog Note ---
Assessment/Plan Assessment/Plan A; E. Coli & Enterococcus sepsis E. coli UTI Pneumonia VDRF VRE colonization Advanced dementia P: Continue IV meropenem add IV Vancomycin will f/u cultures Subjective ROS Limited/Unobtainable: Yes Constitutional: Reports: no symptoms Allergies: Coded Allergies: No Known Allergies (Unverified , 01/27/17) Objective Vital Signs Last 24 Hour Vital Signs Date Time Temp Pulse Resp B/P (MAP) Pulse Ox O2 Delivery O2 Flow Rate FiO2 08/07/18 10:08 65 155/76 08/07/18 10:05 65 155/76 08/07/18 08:42 67 26 30 08/07/18 08:00 65 08/07/18 08:00 30 08/07/18 08:00 97.5 66 20 155/76 (102) 100 08/07/18 08:00 Mechanical Ventilator 08/07/18 06:50 66 24 30 08/07/18 04:59 73 18 30 08/07/18 04:00 Mechanical Ventilator 08/07/18 04:00 30 08/07/18 04:00 73 08/07/18 04:00 98.7 73 17 144/74 (97) 99 08/07/18 03:11 71 18 30 08/07/18 01:30 76 20 30 08/07/18 00:00 Mechanical Ventilator 08/07/18 00:00 99.4 76 20 147/69 (95) 100 08/07/18 00:00 30 08/07/18 00:00 79 08/06/18 23:10 77 19 30 08/06/18 21:46 78 17 30 08/06/18 21:20 90 144/74 08/06/18 20:00 71 08/06/18 20:00 Mechanical Ventilator 08/06/18 20:00 98.6 74 20 144/74 (97) 98 08/06/18 20:00 30 08/06/18 19:12 70 18 30 08/06/18 16:45 81 20 30 08/06/18 16:00 98.6 88 24 159/86 (110) 99 08/06/18 16:00 30 08/06/18 16:00 Mechanical Ventilator 08/06/18 16:00 82 08/06/18 14:59 77 21 30 08/06/18 12:58 78 21 30 08/06/18 12:00 78 08/06/18 12:00 98.1 76 18 147/77 (100) 96 08/06/18 12:00 30 08/06/18 12:00 Mechanical Ventilator Height (Feet): 6 Height (Inches): 2.00 Weight (Pounds): 127 HEENT: status post trach Respiratory/Chest: lungs clear, other - on ventilator Cardiovascular: normal rate Abdomen: soft, non tender, other - GT feeding Extremities: no edema Neurologic/Psychiatric: unresponsiveness Laboratory Tests Test 08/07/18 05:20 White Blood Count 8.3 K/UL (4.8-10.8) Red Blood Count 3.34 M/UL (4.70-6.10) L Hemoglobin 9.6 G/DL (14.2-18.0) L Hematocrit 29.0 % (42.0-52.0) L Mean Corpuscular Volume 87 FL (80-99) Mean Corpuscular Hemoglobin 28.6 PG (27.0-31.0) Mean Corpuscular Hemoglobin Concent 33.0 G/DL (32.0-36.0) Red Cell Distribution Width 16.5 % (11.6-14.8) H Platelet Count 386 K/UL (150-450) Mean Platelet Volume 4.5 FL (6.5-10.1) L Neutrophils (%) (Auto) 79.0 % (45.0-75.0) H Lymphocytes (%) (Auto) 10.2 % (20.0-45.0) L Monocytes (%) (Auto) 8.4 % (1.0-10.0) Eosinophils (%) (Auto) 1.7 % (0.0-3.0) Basophils (%) (Auto) 0.7 % (0.0-2.0) Sodium Level 147 MMOL/L (136-145) H Potassium Level 3.6 MMOL/L (3.5-5.1) Chloride Level 109 MMOL/L (98-107) H Carbon Dioxide Level 29 MMOL/L (21-32) Anion Gap 9 mmol/L (5-15) Blood Urea Nitrogen 29 mg/dL (7-18) H Creatinine 0.7 MG/DL (0.55-1.30) Estimat Glomerular Filtration Rate mL/min (>60) Glucose Level 88 MG/DL (74-106) Calcium Level 8.8 MG/DL (8.5-10.1) Magnesium Level 1.7 MG/DL (1.8-2.4) L Total Bilirubin 0.8 MG/DL (0.2-1.0) Aspartate Amino Transf (AST/SGOT) 30 U/L (15-37) Alanine Aminotransferase (ALT/SGPT) 11 U/L (12-78) L Alkaline Phosphatase 358 U/L (46-116) H Pro-B-Type Natriuretic Peptide 2174 pg/mL (0-125) H Total Protein 6.3 G/DL (6.4-8.2) L Albumin 1.4 G/DL (3.4-5.0) L Globulin 4.9 g/dL Albumin/Globulin Ratio 0.3 (1.0-2.7) L Current Medications Medications (Trade) Dose Ordered Sig/Iram Route PRN Reason Start Time Stop Time Status Last Admin Dose Admin Acetaminophen (Tylenol) 650 mg Q6H PRN GT Mild Pain/Temp > 101.0 08/03/18 20:30 09/02/18 20:29 08/04/18 08:52 Amlodipine Besylate (Norvasc) 10 mg DAILY GT 08/04/18 09:00 09/03/18 08:59 08/07/18 10:08 Artificial Tears (Akwa-Tears) 2 drop DAILYPRN PRN BOTH EYES DRY EYES 08/03/18 20:30 09/02/18 20:29 Ascorbic Acid (Vitamin C) 500 mg DAILY GT 08/04/18 09:00 09/03/18 08:59 08/07/18 10:08 Aspirin (ASA) 81 mg DAILY GT 08/04/18 09:00 09/03/18 08:59 08/07/18 10:08 Atorvastatin Calcium (Lipitor) 10 mg BEDTIME GT 08/03/18 21:00 09/02/18 20:59 08/06/18 21:19 Bisacodyl (Dulcolax) 10 mg DAILYPRN PRN RECTAL constipation 08/03/18 20:30 09/02/18 20:29 Docusate Sodium (Colace) 100 mg DAILY GT 08/04/18 09:00 09/03/18 08:59 08/07/18 10:01 Doxazosin Mesylate (Cardura) 1 mg QHS GT 08/03/18 21:00 09/02/18 20:59 08/06/18 21:19 Heparin Sodium (Porcine) (Heparin 5000 units/ml) 5,000 units EVERY 12 HOURS SUBQ 08/03/18 21:00 09/02/18 20:59 08/07/18 10:11 Isoniazid (Inh) 300 mg DAILY GT 08/04/18 09:00 09/03/18 08:59 08/07/18 10:08 Lansoprazole (Prevacid) 30 mg Q12HR GT 08/03/18 21:00 09/02/18 20:59 08/07/18 10:04 Levetiracetam (Keppra) 750 mg Q12HR GT 08/03/18 21:00 09/02/18 20:59 08/07/18 09:00 Magnesium Hydroxide (Mom) 30 ml DAILYPRN PRN GT CONSTIPATION 08/03/18 20:30 09/02/18 20:29 Meropenem 1 gm/ Sodium Chloride 55 ml @ 110 mls/hr Q8H IVPB 08/05/18 11:30 08/10/18 11:29 08/07/18 10:51 Metoprolol Tartrate (Lopressor) 50 mg EVERY 12 HOURS GT 08/03/18 21:00 09/02/18 20:59 08/07/18 10:05 Multivitamins (Multivitamins W/ Minerals 15ml Liquid) 15 ml DAILY GT 08/04/18 09:00 09/03/18 08:59 08/07/18 10:09 Ondansetron HCl (Zofran) 4 mg Q8H PRN IVP Nausea & Vomiting 08/03/18 20:30 09/02/18 20:29 Pyrazinamide (Pza) 1,000 mg DAILY GT 08/04/18 09:00 09/03/18 08:59 08/07/18 10:07 Pyridoxine HCl (Vitamin B6) 100 mg DAILY GT 08/04/18 09:00 09/03/18 08:59 08/07/18 10:07 Rifampin (Rifadin) 600 mg DAILY GT 08/04/18 09:00 09/03/18 08:59 08/07/18 10:08 Sodium Phosphate (Fleet's Sodium Phosl Enema) 133 ml DAILYPRN PRN RECTAL constipation 08/03/18 20:30 09/02/18 20:29 Vancomycin HCl (Vanco rx to dose) 1 ea DAILY PRN MISC Per rx protocol 08/07/18 11:15 09/06/18 11:14 UNV Zinc Sulfate (Zinc Sulfate) 220 mg DAILY GT 08/04/18 09:00 09/03/18 08:59 08/07/18 10:07 Rahul Shen MD Aug 07, 2018 11:15
[2018-08-07 12:00] VITALS: BP 138/64
[2018-08-07] MEDS ORDERED: Vancomycin 750mg/NS 250ml IVPB SCH (12:00)
--- NOTE | 2018-08-07 12:46 | NUR ---
CASE MANAGEMENT: REVIEW SI: PNA T 97.5 HR 66 RR 26 BP 155/76 SAT 100% MECH VENT FIO2 30 H/H 9.6/29.0 NA 147 IS: VANCO IV Q12HR MEROPENEM IV Q8HR NORVASC GT QD ASA GT QD INH GT QD PYRAZINAMIDE GT QD RIFAMPIN GT QD KEPPRA GT Q12HR STEP DOWN UNIT STATUS DCP: PATIENT IS FROM [facility]
--- NOTE | 2018-08-07 13:20 | NUR ---
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 . 2) Increased kcal/prot needs R/T underweight status and wound healing as evidenced by low BMI under guidelines, noted w/ mod-severe generalized wasting, pt w/ multiple advanced wounds, refer to WC eval CURRENT TF: Vital AF 1.2 @65ml /hr x20 hrs ENTERAL NUTRITION RECOMMENDATIONS: MAINTAIN Vital AF 1.2 @ 65ml/hr x20 hrs to provide 1300ml, 1560 kcal, 98g prot, 1054ml free H2O - Meets 100% est kcal and protein needs. - HOB over 30 degrees - Rec to increase water flushes (elev Na, BUN trend up) ADDITIONAL RECOMMENDATIONS: 1) Via GT add YOVANI w/ 4-6oz fluid BID for wound care -> Increase Vit C to 500mg BID 2) RECALIBRATE BED SCALE FOR ACCURATE CBW (conflicting wts) + weekly wts given underweight status 3) Check lytes daily, replete as needed
[2018-08-07] MEDS: Vancomycin 750mg/NS 250ml IVPB SCH (15:41)
[2018-08-07 16:00] VITALS: BP 139/62
--- NOTE | 2018-08-07 18:32 | General Progress Note ---
Assessment/Plan Problem List: (1) Toxic metabolic encephalopathy ICD Codes: G92 - Toxic encephalopathy SNOMED: 201661704 (2) Status epilepticus ICD Codes: G40.901 - Epilepsy, unspecified, not intractable, with status epilepticus SNOMED: 227941765 (3) Hyperlipidemia ICD Codes: E78.5 - Hyperlipidemia, unspecified SNOMED: 74840582 (4) Dementia ICD Codes: F03.90 - Unspecified dementia without behavioral disturbance SNOMED: 44535177 (5) Aspiration pneumonia ICD Codes: J69.0 - Pneumonitis due to inhalation of food and vomit SNOMED: 885526167 (6) Abnormal LFTs ICD Codes: R94.5 - Abnormal results of liver function studies SNOMED: 809089614 (7) Aspiration pneumonia ICD Codes: J69.0 - Pneumonitis due to inhalation of food and vomit SNOMED: 602953001 (8) Encephalopathy ICD Codes: G93.40 - Encephalopathy, unspecified SNOMED: 71775054 (9) Sepsis ICD Codes: A41.9 - Sepsis, unspecified organism SNOMED: 93077876 (10) UTI (urinary tract infection), bacterial ICD Codes: N39.0 - Urinary tract infection, site not specified; A49.9 - Bacterial infection, unspecified SNOMED: 290300206 Status: stable, progressing Assessment/Plan cont iv abx per id follow up cultures echo vent support resp rx tb meds repeat lfts improved topical antifungal nail rx increase water flushes wound care Subjective ROS Limited/Unobtainable: Yes Constitutional: Reports: malaise, weakness HEENT: Reports: no symptoms Cardiovascular: Reports: no symptoms Respiratory: Reports: shortness of breath Gastrointestinal/Abdominal: Reports: difficulty swallowing Genitourinary: Reports: no symptoms Neurologic/Psychiatric: Reports: pre-existing deficit, seizure Endocrine: Reports: no symptoms Hematologic/Lymphatic: Reports: anemia Allergies: Coded Allergies: No Known Allergies (Unverified , 01/27/17) All Systems: reviewed and negative except above Subjective no events. family concerned about pts fingernail. +blood cultures noted. no fevers. labs better. Na trending up. Objective Last 24 Hour Vital Signs Date Time Temp Pulse Resp B/P (MAP) Pulse Ox O2 Delivery O2 Flow Rate FiO2 08/07/18 17:19 67 24 30 08/07/18 16:00 Mechanical Ventilator 08/07/18 16:00 64 08/07/18 16:00 30 08/07/18 16:00 97.9 65 16 139/62 (87) 100 08/07/18 14:50 69 17 30 08/07/18 13:05 73 15 30 08/07/18 12:00 97.9 61 18 138/64 (88) 08/07/18 12:00 62 08/07/18 12:00 Mechanical Ventilator 08/07/18 12:00 30 08/07/18 11:58 66 16 30 08/07/18 10:08 65 155/76 08/07/18 10:05 65 155/76 08/07/18 08:42 67 26 30 08/07/18 08:00 65 08/07/18 08:00 30 08/07/18 08:00 97.5 66 20 155/76 (102) 100 08/07/18 08:00 Mechanical Ventilator 08/07/18 06:50 66 24 30 08/07/18 04:59 73 18 30 08/07/18 04:00 Mechanical Ventilator 08/07/18 04:00 30 08/07/18 04:00 73 08/07/18 04:00 98.7 73 17 144/74 (97) 99 08/07/18 03:11 71 18 30 08/07/18 01:30 76 20 30 08/07/18 00:00 Mechanical Ventilator 08/07/18 00:00 99.4 76 20 147/69 (95) 100 08/07/18 00:00 30 08/07/18 00:00 79 08/06/18 23:10 77 19 30 08/06/18 21:46 78 17 30 08/06/18 21:20 90 144/74 08/06/18 20:00 71 08/06/18 20:00 Mechanical Ventilator 08/06/18 20:00 98.6 74 20 144/74 (97) 98 08/06/18 20:00 30 08/06/18 19:12 70 18 30 Intake and Output 08/06/18 08/07/18 18:59 06:59 Intake Total 1075 ml 790 ml Output Total 550 ml 300 ml Balance 525 ml 490 ml Intake Free Water 300 ml 200 ml IV Total 55 ml 110 ml Tube Feeding 720 ml 480 ml Output Urine Total 550 ml 300 ml # Bowel Movements 2 Laboratory Tests 08/07/18 05:20: White Blood Count 8.3, Red Blood Count 3.34L, Hemoglobin 9.6L, Hematocrit 29.0L , Mean Corpuscular Volume 87, Mean Corpuscular Hemoglobin 28.6, Mean Corpuscular Hemoglobin Concent 33.0, Red Cell Distribution Width 16.5H, Platelet Count 386, Mean Platelet Volume 4.5L, Neutrophils (%) (Auto) 79.0H, Lymphocytes (%) (Auto) 10.2L, Monocytes (%) (Auto) 8.4, Eosinophils (%) (Auto) 1.7, Basophils (%) (Auto) 0.7, Sodium Level 147H, Potassium Level 3.6, Chloride Level 109H, Carbon Dioxide Level 29, Anion Gap 9, Blood Urea Nitrogen 29H, Creatinine 0.7, Estimat Glomerular Filtration Rate , Glucose Level 88, Calcium Level 8.8, Magnesium Level 1.7L, Total Bilirubin 0.8, Aspartate Amino Transf ( AST/SGOT) 30, Alanine Aminotransferase (ALT/SGPT) 11L, Alkaline Phosphatase 358H , Pro-B-Type Natriuretic Peptide 2174H, Total Protein 6.3L, Albumin 1.4L, Globulin 4.9, Albumin/Globulin Ratio 0.3L Height (Feet): 6 Height (Inches): 2.00 Weight (Pounds): 127 Objective General Appearance: WD/WN, lethargic, confused Neck: supple Cardiovascular: normal peripheral pulses Respiratory/Chest: chest wall non-tender, lungs clear, normal breath sounds, no respiratory distress, no accessory muscle use Abdomen: normal bowel sounds, non tender, soft, no organomegaly Edema: no edema noted Arm (L), no edema noted Arm (R), no edema noted Leg (L), no edema noted Leg (R), no edema noted Pedal (L), no edema noted Pedal (R), no edema noted Generalized Neurologic: disoriented, unresponsive, aphasia Skin: hyperpigmented dystrophic nails Jarrod Vásquez MD Aug 07, 2018 18:32
[2018-08-07] MEDS ORDERED: TERBINAFINE 1% TOPIC SCH (19:00)
--- NOTE | 2018-08-07 19:00 | NUR ---
NURSE NOTES:PLACED A TELEPHONE CALL TO DR OLIVA REGARDING PT MAGNESIUM LEVEL 1.7 .LEFT MESSAGE ON EMERGENCY VOICE MAIL.REPORT ENDORSED TO NINI REEVES OF [facility] SHIFT.A WAITING FOR M.D TO CALL ME BACK.WILL CONT TO MONITOR.
--- NOTE | 2018-08-07 19:00 | NUR ---
RESPIRATORY NOTE: PT. RECEIVED STABLE ON CMV WITH CURRENT SETTINGS. VENT CIRCUIT SECURE AND OUT OF THE WAY. ALL VS WNL. NO S/S OF RESPIRATORY DISTRESS NOTED AT THIS TIME.
--- NOTE | 2018-08-07 19:15 | NUR ---
HAND-OFF: Report given to .JAYDEN REEVES.
[2018-08-07 20:00] VITALS: BP 145/77
[2018-08-07] MEDS ORDERED: Magnesium Sulfate 2ml Inj IV ONE (20:15)
[2018-08-07] MEDS: TERBINAFINE 1% TOPIC SCH (21:00)
[2018-08-07] MEDS: Doxazosin 1mg Tab GT SCH (22:20)
[2018-08-07] MEDS: Magnesium Sulfate 1gm/100ml IVPB SCH (22:53)
[2018-08-08] VITALS: BP 120/60
[2018-08-08] MEDS: Magnesium Sulfate 1gm/100ml IVPB SCH
[2018-08-08] MEDS: Meropenem 1 GM in NS 55 ML IVPB SCH ×3 (03:19→20:25)
[2018-08-08] MEDS: Vancomycin 750mg/NS 250ml IVPB SCH ×2 (03:57→16:49)
[2018-08-08 04:00] VITALS: BP 144/57
--- NOTE | 2018-08-08 06:30 | Progress Note ---
DATE: 08/07/2018 CARDIOLOGY PROGRESS NOTE SUBJECTIVE: The patient remains on trach collar. Blood cultures are positive. OBJECTIVE: VITAL SIGNS: Blood pressure 139/63, pulse 65, respirations 16, and afebrile. GENERAL: Thick trach secretions. LUNGS: Coarse breath sounds with rhonchi. HEART: Regular rhythm and rate. Normal S1, S2 with no new murmur. ABDOMEN: Soft with G-tube intact. EXTREMITIES: With trace edema. LABORATORY DATA: White count 8.3 and hemoglobin 9.6. Magnesium 1.7. Sodium 147, potassium 3.6, bicarbonate 29, BUN 29, and creatinine 0.7. Albumin 1.4. IMPRESSION: 1. E. coli ESBL urinary tract infection with sepsis and bacteremia. 2. Tracheostomy and respiratory failure. 3. Hypomagnesemia, hypernatremia, and dehydration. 4. Hypertensive heart disease. 5. Chronic diastolic congestive heart failure. 6. Paroxysmal atrial fibrillation. 7. Pulmonary tuberculosis, on antimicrobials. PLAN: 1. IV magnesium. 2. Free water replacement. 3. Antimicrobials. 4. Respiratory hygiene. 5. DVT prophylaxis. 6. Titrate antihypertensives. 7. Avoid tight blood pressure control in the setting of sepsis and bacteremia. We will follow. Jones Arauz M.D. DR: JEVON JOB#: [id number] CC:
--- NOTE | 2018-08-08 07:16 | NUR ---
HAND-OFF: Report given to David Mccoy RN.
--- NOTE | 2018-08-08 07:20 | NUR ---
NURSE NOTES: Report received from Yamileth Chopra RN.Pt resting in bed asleep with trach to mech vent on current settings,tolerating well,no signs of pain or dsicomfort SR on the monitor,GTF Vital AF 1.5 at 65ml/hr,no residual noted,Manzo cath for urinary retention,draining yellow urine,skin warm and dry,IV site to RFA and LH heplock intact,SR up x2 ,HOB elevated,bed lock in lowest position,will continue with plans of care.
[2018-08-08 07:29] LABS: ALANINE AMINOTRANSFERASE 10 U/L (12-78); ALBUMIN 1.3 G/DL (3.4-5.0); ALBUMIN/GLOBULIN RATIO 0.3 (1.0-2.7); ALKALINE PHOSPHATASE 357 U/L (46-116); ANION GAP 9 mmol/L (5-15); ASPARTATE AMINO TRANSFERASE 33 U/L (15-37); BILIRUBIN,TOTAL 0.6 MG/DL (0.2-1.0); BLOOD UREA NITROGEN 28 mg/dL (7-18); CALCIUM 8.6 MG/DL (8.5-10.1); CARBON DIOXIDE 28 MMOL/L (21-32); CHLORIDE 108 MMOL/L (98-107); CREATININE 0.6 MG/DL (0.55-1.30); POTASSIUM 3.5 MMOL/L (3.5-5.1); SODIUM 144 MMOL/L (136-145)
--- NOTE | 2018-08-08 07:54 | General Progress Note ---
Assessment/Plan Problem List: (1) Toxic metabolic encephalopathy ICD Codes: G92 - Toxic encephalopathy SNOMED: 566963981 (2) Status epilepticus ICD Codes: G40.901 - Epilepsy, unspecified, not intractable, with status epilepticus SNOMED: 953702699 (3) Hyperlipidemia ICD Codes: E78.5 - Hyperlipidemia, unspecified SNOMED: 31339900 (4) Dementia ICD Codes: F03.90 - Unspecified dementia without behavioral disturbance SNOMED: 07672851 (5) Aspiration pneumonia ICD Codes: J69.0 - Pneumonitis due to inhalation of food and vomit SNOMED: 856890801 (6) Abnormal LFTs ICD Codes: R94.5 - Abnormal results of liver function studies SNOMED: 852538197 (7) Aspiration pneumonia ICD Codes: J69.0 - Pneumonitis due to inhalation of food and vomit SNOMED: 080952876 (8) Encephalopathy ICD Codes: G93.40 - Encephalopathy, unspecified SNOMED: 51141682 (9) Sepsis ICD Codes: A41.9 - Sepsis, unspecified organism SNOMED: 71275615 (10) UTI (urinary tract infection), bacterial ICD Codes: N39.0 - Urinary tract infection, site not specified; A49.9 - Bacterial infection, unspecified SNOMED: 274349730 Status: stable, progressing Assessment/Plan cont iv abx per id follow up cultures echo vent support resp rx tb meds repeat lfts improved topical antifungal nail rx increase water flushes monitor labs/na wound care Subjective ROS Limited/Unobtainable: Yes Constitutional: Reports: malaise, weakness HEENT: Reports: no symptoms Cardiovascular: Reports: no symptoms Respiratory: Reports: sputum Gastrointestinal/Abdominal: Reports: difficulty swallowing Genitourinary: Reports: no symptoms Neurologic/Psychiatric: Reports: pre-existing deficit, seizure Endocrine: Reports: no symptoms Hematologic/Lymphatic: Reports: no symptoms Allergies: Coded Allergies: No Known Allergies (Unverified , 01/27/17) All Systems: reviewed and negative except above Subjective no events. stable on the vent. poorly responsive. no fevers. remains on multiple iv abx Objective Last 24 Hour Vital Signs Date Time Temp Pulse Resp B/P (MAP) Pulse Ox O2 Delivery O2 Flow Rate FiO2 08/08/18 07:20 81 20 30 08/08/18 04:49 78 18 30 08/08/18 04:00 98.9 83 20 144/57 (86) 94 08/08/18 04:00 30 08/08/18 04:00 Mechanical Ventilator 08/08/18 03:14 73 08/08/18 02:48 70 16 30 08/08/18 01:15 69 20 30 08/08/18 00:00 Mechanical Ventilator 08/08/18 00:00 99.0 72 20 120/60 (80) 98 08/07/18 23:17 72 08/07/18 23:02 74 18 30 08/07/18 21:00 73 144/75 08/07/18 20:32 73 20 30 08/07/18 20:00 Mechanical Ventilator 08/07/18 20:00 98.2 71 18 145/77 (99) 100 08/07/18 20:00 30 08/07/18 19:33 72 08/07/18 19:00 70 22 30 08/07/18 17:19 67 24 30 08/07/18 16:00 Mechanical Ventilator 08/07/18 16:00 64 08/07/18 16:00 30 08/07/18 16:00 97.9 65 16 139/62 (87) 100 08/07/18 14:50 69 17 30 08/07/18 13:05 73 15 30 08/07/18 12:00 62 08/07/18 12:00 Mechanical Ventilator 08/07/18 12:00 30 08/07/18 12:00 97.9 61 18 138/64 (88) 99 08/07/18 11:58 66 16 30 08/07/18 10:08 65 155/76 08/07/18 10:05 65 155/76 08/07/18 08:42 67 26 30 08/07/18 08:00 65 08/07/18 08:00 30 08/07/18 08:00 97.5 66 20 155/76 (102) 100 08/07/18 08:00 Mechanical Ventilator Intake and Output 08/07/18 08/08/18 19:00 07:00 Intake Total 1128.334 ml 1220.000 ml Output Total 400 ml Balance 1128.334 ml 820.000 ml Intake Free Water 200 ml 200 ml IV Total 388.334 ml 360.000 ml Tube Feeding 540 ml 660 ml Output Urine Total 400 ml Laboratory Tests 08/08/18 05:08: Sodium Level 144, Potassium Level 3.5, Chloride Level 108H, Carbon Dioxide Level 28, Anion Gap 9, Blood Urea Nitrogen 28H, Creatinine 0.6, Estimat Glomerular Filtration Rate , Glucose Level 118H, Calcium Level 8.6, Total Bilirubin 0.6, Aspartate Amino Transf (AST/SGOT) 33, Alanine Aminotransferase ( ALT/SGPT) 10L, Alkaline Phosphatase 357H, Total Protein 6.3L, Albumin 1.3L, Globulin 5.0, Albumin/Globulin Ratio 0.3L Height (Feet): 6 Height (Inches): 2.00 Weight (Pounds): 127 Objective General Appearance: WD/WN, lethargic, confused Neck: supple Cardiovascular: normal peripheral pulses Respiratory/Chest: chest wall non-tender, lungs clear, normal breath sounds, no respiratory distress, no accessory muscle use Abdomen: normal bowel sounds, non tender, soft, no organomegaly Edema: no edema noted Arm (L), no edema noted Arm (R), no edema noted Leg (L), no edema noted Leg (R), no edema noted Pedal (L), no edema noted Pedal (R), no edema noted Generalized Neurologic: disoriented, unresponsive, aphasia Skin: hyperpigmented dystrophic nails Jarrod Vásquez MD Aug 08, 2018 07:54
[2018-08-08 08:05] VITALS: BP 144/76
[2018-08-08] MEDS: Aspirin Baby 81mg GT SCH (08:51)
[2018-08-08] MEDS: Docusate 100mg/10ml Liq GT SCH (08:51)
[2018-08-08] MEDS: Isoniazid 300mg tab GT SCH (08:52)
[2018-08-08] MEDS: Zinc Sulfate 220mg cap GT SCH (08:52)
[2018-08-08] MEDS: Pyridoxine 50mg tab GT SCH (08:52)
[2018-08-08] MEDS: Metoprolol Tartrate 50mg tab GT SCH ×2 (08:53→20:34)
[2018-08-08] MEDS: Multivitamins W/Minerals 15 ML UDC GT SCH (08:53)
[2018-08-08] MEDS: Ascorbic Acid 500mg tab GT SCH (08:53)
--- NOTE | 2018-08-08 08:54 | Pulmonology Progress Note ---
Assessment/Plan Assessment/Plan respiratory failure tachycardia sepsis leukocytosis anemia severe protein calorie malnutrition trach GT aspiration pneumonia urosepsis ho TB PLAN care noted and reviewed IV antibiotics- cultures/sens noted ID follow up respiratory care and monitor imaging Ventilatory support without change on AC aspiration precautions optimize for dc SNF meds supportive care suction as needed no wean oxygen therapy monitor labs nutrition as able and monitor albumin levels prognosis guarded impression, plan, and exam edited and reviewed in detail care discussed with RN Subjective ROS Limited/Unobtainable: Yes Allergies: Coded Allergies: No Known Allergies (Unverified , 01/27/17) Subjective cultures and sens noted on vent/poorly responsive overnight events reviewed Objective Last 24 Hour Vital Signs Date Time Temp Pulse Resp B/P (MAP) Pulse Ox O2 Delivery O2 Flow Rate FiO2 08/08/18 08:08 30 08/08/18 08:06 Mechanical Ventilator 08/08/18 08:05 99.3 81 20 144/76 (98) 100 08/08/18 07:20 81 20 30 08/08/18 04:49 78 18 30 08/08/18 04:00 98.9 83 20 144/57 (86) 94 08/08/18 04:00 30 08/08/18 04:00 Mechanical Ventilator 08/08/18 03:14 73 08/08/18 02:48 70 16 30 08/08/18 01:15 69 20 30 08/08/18 00:00 Mechanical Ventilator 08/08/18 00:00 99.0 72 20 120/60 (80) 98 08/07/18 23:17 72 08/07/18 23:02 74 18 30 08/07/18 21:00 73 144/75 08/07/18 20:32 73 20 30 08/07/18 20:00 Mechanical Ventilator 08/07/18 20:00 98.2 71 18 145/77 (99) 100 08/07/18 20:00 30 08/07/18 19:33 72 08/07/18 19:00 70 22 30 08/07/18 17:19 67 24 30 08/07/18 16:00 Mechanical Ventilator 08/07/18 16:00 64 08/07/18 16:00 30 08/07/18 16:00 97.9 65 16 139/62 (87) 100 08/07/18 14:50 69 17 30 08/07/18 13:05 73 15 30 1/3/19 12:00 62 08/07/18 12:00 Mechanical Ventilator 08/07/18 12:00 30 08/07/18 12:00 97.9 61 18 138/64 (88) 99 08/07/18 11:58 66 16 30 08/07/18 10:08 65 155/76 08/07/18 10:05 65 155/76 Intake and Output 08/07/18 08/08/18 19:00 07:00 Intake Total 1128.334 ml 1280.000 ml Output Total 400 ml Balance 1128.334 ml 880.000 ml Intake Free Water 200 ml 200 ml IV Total 388.334 ml 360.000 ml Tube Feeding 540 ml 720 ml Output Urine Total 400 ml Objective WDWN trach reduced breath sounds bilaterally with scattered rhonchi [id number] without MRG NABS nontender no HSM; GT no CCE contracted nonfocal poorly responsive reviewed and edited Laboratory Tests 08/08/18 05:08: Sodium Level 144, Potassium Level 3.5, Chloride Level 108H, Carbon Dioxide Level 28, Anion Gap 9, Blood Urea Nitrogen 28H, Creatinine 0.6, Estimat Glomerular Filtration Rate , Glucose Level 118H, Calcium Level 8.6, Total Bilirubin 0.6, Aspartate Amino Transf (AST/SGOT) 33, Alanine Aminotransferase ( ALT/SGPT) 10L, Alkaline Phosphatase 357H, Total Protein 6.3L, Albumin 1.3L, Globulin 5.0, Albumin/Globulin Ratio 0.3L Current Medications Medications (Trade) Dose Ordered Sig/Iram Route PRN Reason Start Time Stop Time Status Last Admin Dose Admin Acetaminophen (Tylenol) 650 mg Q6H PRN GT Mild Pain/Temp > 101.0 08/03/18 20:30 09/02/18 20:29 08/04/18 08:52 Amlodipine Besylate (Norvasc) 10 mg DAILY GT 08/04/18 09:00 09/03/18 08:59 08/07/18 10:08 Artificial Tears (Akwa-Tears) 2 drop DAILYPRN PRN BOTH EYES DRY EYES 08/03/18 20:30 09/02/18 20:29 Ascorbic Acid (Vitamin C) 500 mg DAILY GT 08/04/18 09:00 09/03/18 08:59 08/07/18 10:08 Aspirin (ASA) 81 mg DAILY GT 08/04/18 09:00 09/03/18 08:59 08/07/18 10:08 Atorvastatin Calcium (Lipitor) 10 mg BEDTIME GT 08/03/18 21:00 09/02/18 20:59 08/07/18 22:20 Bisacodyl (Dulcolax) 10 mg DAILYPRN PRN RECTAL constipation 08/03/18 20:30 09/02/18 20:29 Clotrimazole (Lotrimin) 1 applic Q12HR TOPIC 08/07/18 21:00 09/06/18 20:59 08/07/18 22:19 Docusate Sodium (Colace) 100 mg DAILY GT 08/04/18 09:00 09/03/18 08:59 08/07/18 10:01 Doxazosin Mesylate (Cardura) 1 mg QHS GT 08/03/18 21:00 09/02/18 20:59 08/07/18 22:20 Heparin Sodium (Porcine) (Heparin 5000 units/ml) 5,000 units EVERY 12 HOURS SUBQ 08/03/18 21:00 09/02/18 20:59 08/07/18 22:23 Isoniazid (Inh) 300 mg DAILY GT 08/04/18 09:00 09/03/18 08:59 08/07/18 10:08 Lansoprazole (Prevacid) 30 mg Q12HR GT 08/03/18 21:00 09/02/18 20:59 08/07/18 22:20 Levetiracetam (Keppra) 750 mg Q12HR GT 08/03/18 21:00 09/02/18 20:59 08/07/18 22:19 Magnesium Hydroxide (Mom) 30 ml DAILYPRN PRN GT CONSTIPATION 08/03/18 20:30 09/02/18 20:29 Meropenem 1 gm/ Sodium Chloride 55 ml @ 110 mls/hr Q8H IVPB 08/05/18 11:30 08/10/18 11:29 08/08/18 03:19 Metoprolol Tartrate (Lopressor) 50 mg EVERY 12 HOURS GT 08/03/18 21:00 09/02/18 20:59 08/07/18 21:00 Multivitamins (Multivitamins W/ Minerals 15ml Liquid) 15 ml DAILY GT 08/04/18 09:00 09/03/18 08:59 08/07/18 10:09 Ondansetron HCl (Zofran) 4 mg Q8H PRN IVP Nausea & Vomiting 08/03/18 20:30 09/02/18 20:29 Pyrazinamide (Pza) 1,000 mg DAILY GT 08/04/18 09:00 09/03/18 08:59 08/07/18 10:07 Pyridoxine HCl (Vitamin B6) 100 mg DAILY GT 08/04/18 09:00 09/03/18 08:59 08/07/18 10:07 Rifampin (Rifadin) 600 mg DAILY GT 08/04/18 09:00 09/03/18 08:59 08/07/18 10:08 Sodium Phosphate (Fleet's Sodium Phosl Enema) 133 ml DAILYPRN PRN RECTAL constipation 08/03/18 20:30 09/02/18 20:29 Terbinafine HCl (LaMISil 30gm) 1 applic EVERY 12 HOURS TOPIC 08/07/18 21:00 09/06/18 18:59 08/07/18 21:00 Vancomycin HCl (Vanco rx to dose) 1 ea DAILY PRN MISC Per rx protocol 08/07/18 11:15 09/06/18 11:14 Vancomycin/Sodium Chloride 250 ml @ 166.667 mls/hr Q12HR@0400,1600 IVPB 08/07/18 16:00 08/12/18 11:59 08/08/18 03:57 Zinc Sulfate (Zinc Sulfate) 220 mg DAILY GT 08/04/18 09:00 09/03/18 08:59 08/07/18 10:07 Nakul Cisse MD Aug 08, 2018 08:54
[2018-08-08] MEDS: Heparin 5000 units/ml inj SUBQ SCH ×2 (08:58→20:27)
[2018-08-08] MEDS: TERBINAFINE 1% TOPIC SCH ×2 (08:59→22:14)
[2018-08-08] MEDS: levETIRAcetam 500mg/5ml Liquid GT SCH ×2 (10:13→20:26)
[2018-08-08 12:00] VITALS: BP 146/72
--- NOTE | 2018-08-08 12:46 | Infectious Diseases Prog Note ---
Assessment/Plan Assessment/Plan A; E. Coli & Enterococcus sepsis E. coli UTI Pneumonia VDRF VRE colonization Advanced dementia P: Continue IV meropenem & IV Vancomycin will f/u cultures Subjective ROS Limited/Unobtainable: Yes Allergies: Coded Allergies: No Known Allergies (Unverified , 01/27/17) Objective Vital Signs Last 24 Hour Vital Signs Date Time Temp Pulse Resp B/P (MAP) Pulse Ox O2 Delivery O2 Flow Rate FiO2 08/08/18 12:12 30 08/08/18 12:00 69 08/08/18 12:00 Mechanical Ventilator 08/08/18 12:00 98.3 68 20 146/72 (96) 99 08/08/18 11:19 80 16 Mechanical Ventilator 30 08/08/18 10:02 74 17 30 08/08/18 08:53 81 144/76 08/08/18 08:53 81 144/76 08/08/18 08:08 30 08/08/18 08:06 Mechanical Ventilator 08/08/18 08:05 99.3 81 20 144/76 (98) 100 08/08/18 08:00 80 08/08/18 07:20 81 20 30 08/08/18 04:49 78 18 30 08/08/18 04:00 98.9 83 20 144/57 (86) 94 08/08/18 04:00 30 08/08/18 04:00 Mechanical Ventilator 08/08/18 03:14 73 08/08/18 02:48 70 16 30 08/08/18 01:15 69 20 30 08/08/18 00:00 Mechanical Ventilator 08/08/18 00:00 99.0 72 20 120/60 (80) 98 08/07/18 23:17 72 08/07/18 23:02 74 18 30 08/07/18 21:00 73 144/75 08/07/18 20:32 73 20 30 08/07/18 20:00 Mechanical Ventilator 08/07/18 20:00 98.2 71 18 145/77 (99) 100 08/07/18 20:00 30 08/07/18 19:33 72 08/07/18 19:00 70 22 30 08/07/18 17:19 67 24 30 08/07/18 16:00 Mechanical Ventilator 08/07/18 16:00 64 1/3/19 16:00 30 08/07/18 16:00 97.9 65 16 139/62 (87) 100 08/07/18 14:50 69 17 30 08/07/18 13:05 73 15 30 Height (Feet): 6 Height (Inches): 2.00 Weight (Pounds): 127 General Appearance: no acute distress HEENT: status post trach Respiratory/Chest: lungs clear, decreased breath sounds, other - on ventilator Cardiovascular: normal rate Abdomen: soft, non tender, other - GT feeding Extremities: no edema Neurologic/Psychiatric: unresponsiveness Laboratory Tests Test 08/08/18 05:08 Sodium Level 144 MMOL/L (136-145) Potassium Level 3.5 MMOL/L (3.5-5.1) Chloride Level 108 MMOL/L (98-107) H Carbon Dioxide Level 28 MMOL/L (21-32) Anion Gap 9 mmol/L (5-15) Blood Urea Nitrogen 28 mg/dL (7-18) H Creatinine 0.6 MG/DL (0.55-1.30) Estimat Glomerular Filtration Rate mL/min (>60) Glucose Level 118 MG/DL (74-106) H Calcium Level 8.6 MG/DL (8.5-10.1) Total Bilirubin 0.6 MG/DL (0.2-1.0) Aspartate Amino Transf (AST/SGOT) 33 U/L (15-37) Alanine Aminotransferase (ALT/SGPT) 10 U/L (12-78) L Alkaline Phosphatase 357 U/L (46-116) H Total Protein 6.3 G/DL (6.4-8.2) L Albumin 1.3 G/DL (3.4-5.0) L Globulin 5.0 g/dL Albumin/Globulin Ratio 0.3 (1.0-2.7) L Current Medications Medications (Trade) Dose Ordered Sig/Iram Route PRN Reason Start Time Stop Time Status Last Admin Dose Admin Acetaminophen (Tylenol) 650 mg Q6H PRN GT Mild Pain/Temp > 101.0 08/03/18 20:30 09/02/18 20:29 08/04/18 08:52 Amlodipine Besylate (Norvasc) 10 mg DAILY GT 08/04/18 09:00 09/03/18 08:59 08/08/18 08:53 Artificial Tears (Akwa-Tears) 2 drop DAILYPRN PRN BOTH EYES DRY EYES 08/03/18 20:30 09/02/18 20:29 Ascorbic Acid (Vitamin C) 500 mg DAILY GT 08/04/18 09:00 09/03/18 08:59 08/08/18 08:53 Aspirin (ASA) 81 mg DAILY GT 08/04/18 09:00 09/03/18 08:59 08/08/18 08:51 Atorvastatin Calcium (Lipitor) 10 mg BEDTIME GT 08/03/18 21:00 09/02/18 20:59 08/07/18 22:20 Bisacodyl (Dulcolax) 10 mg DAILYPRN PRN RECTAL constipation 08/03/18 20:30 09/02/18 20:29 Clotrimazole (Lotrimin) 1 applic Q12HR TOPIC 08/07/18 21:00 09/06/18 20:59 08/08/18 08:58 Docusate Sodium (Colace) 100 mg DAILY GT 08/04/18 09:00 09/03/18 08:59 08/08/18 08:51 Doxazosin Mesylate (Cardura) 1 mg QHS GT 08/03/18 21:00 09/02/18 20:59 08/07/18 22:20 Heparin Sodium (Porcine) (Heparin 5000 units/ml) 5,000 units EVERY 12 HOURS SUBQ 08/03/18 21:00 09/02/18 20:59 08/08/18 08:58 Isoniazid (Inh) 300 mg DAILY GT 08/04/18 09:00 09/03/18 08:59 08/08/18 08:52 Lansoprazole (Prevacid) 30 mg Q12HR GT 08/03/18 21:00 09/02/18 20:59 08/08/18 10:13 Levetiracetam (Keppra) 750 mg Q12HR GT 08/03/18 21:00 09/02/18 20:59 08/08/18 10:13 Magnesium Hydroxide (Mom) 30 ml DAILYPRN PRN GT CONSTIPATION 08/03/18 20:30 09/02/18 20:29 Meropenem 1 gm/ Sodium Chloride 55 ml @ 110 mls/hr Q8H IVPB 08/05/18 11:30 08/10/18 11:29 08/08/18 03:19 Metoprolol Tartrate (Lopressor) 50 mg EVERY 12 HOURS GT 08/03/18 21:00 09/02/18 20:59 08/08/18 08:53 Multivitamins (Multivitamins W/ Minerals 15ml Liquid) 15 ml DAILY GT 08/04/18 09:00 09/03/18 08:59 08/08/18 08:53 Ondansetron HCl (Zofran) 4 mg Q8H PRN IVP Nausea & Vomiting 08/03/18 20:30 09/02/18 20:29 Pyrazinamide (Pza) 1,000 mg DAILY GT 08/04/18 09:00 09/03/18 08:59 08/08/18 08:52 Pyridoxine HCl (Vitamin B6) 100 mg DAILY GT 08/04/18 09:00 09/03/18 08:59 08/08/18 08:52 Rifampin (Rifadin) 600 mg DAILY GT 08/04/18 09:00 09/03/18 08:59 08/08/18 08:52 Sodium Phosphate (Fleet's Sodium Phosl Enema) 133 ml DAILYPRN PRN RECTAL constipation 08/03/18 20:30 09/02/18 20:29 Terbinafine HCl (LaMISil 30gm) 1 applic EVERY 12 HOURS TOPIC 08/07/18 21:00 09/06/18 18:59 08/08/18 08:59 Vancomycin HCl (Vanco rx to dose) 1 ea DAILY PRN MISC Per rx protocol 08/07/18 11:15 09/06/18 11:14 Vancomycin/Sodium Chloride 250 ml @ 166.667 mls/hr Q12HR@0400,1600 IVPB 08/07/18 16:00 08/12/18 11:59 08/08/18 03:57 Zinc Sulfate (Zinc Sulfate) 220 mg DAILY GT 08/04/18 09:00 09/03/18 08:59 08/08/18 08:52 Rahul Shen MD Aug 08, 2018 12:46
--- NOTE | 2018-08-08 13:56 | NUR ---
NURSE NOTES: Pt stable in no resp distress,oral/tracheal secretions suctioned PRN,turned and repositioned ,kept dry and clean.
--- NOTE | 2018-08-08 14:20 | NUR ---
SS note Chart reviewed; no SW needs identified at this time. SW to follow as needed. Patient is from [facility].
[2018-08-08] MEDS ORDERED: NS 275ml ONE ×2 (14:59→20:16)
--- NOTE | 2018-08-08 15:57 | NUR ---
CASE MANAGEMENT: REVIEW SI: PNA T 98.3 HR 68 RR 20 BP 146/72 SAT 99% MECH VENT FIO2 30 ALT 10 ALK PHOS 357 IS: VANCO IV Q12HR MEROPENEM IV Q8HR NORVASC GT QD ASA GT QD INH GT QD PYRAZINAMIDE GT QD RIFAMPIN GT QD KEPPRA GT Q12HR STEP DOWN UNIT STATUS DCP: PATIENT IS FROM [facility]
[2018-08-08 16:00] VITALS: BP 140/69
--- NOTE | 2018-08-08 19:10 | NUR ---
HAND-OFF: Report given to Adry Hand RN.
--- NOTE | 2018-08-08 19:20 | NUR ---
NURSE NOTES: Received report from Nadine RN, pt. in bed obtunded, non-verbal, no signs and symptoms of acute distress noted, pt. appears to be tolerating current vent settings well- AC 12, TV 500, Fio2 at 30% and Peep of 5, Vital 1.5 running at 65cc/hr- no residual noted- via g tube, Manzo intact and draining to gravity, pt. comfort measures provided and pt. clean and dry, RFA 22G IV and Lt. hand 20G IV both IVs intact and patent, cardiac monitoring on, safety measures continued, will continue with plan of care. Addendum: 08/08/18 at 1958 by JHONATAN SEAY RN RN side rails padded for seizure precautions. Bed alarm on, side rails up x's3 and safety brakes engaged, bed in lowest postion and call light within easy reach.
[2018-08-08 20:00] VITALS: BP 134/78
[2018-08-08] MEDS ORDERED: Tubing IV Secondary IV ONE (20:16)
[2018-08-08] MEDS: Doxazosin 1mg Tab GT SCH (20:26)
[2018-08-09] VITALS: BP 134/70
--- NOTE | 2018-08-09 01:45 | Progress Note ---
DATE: 08/08/2018 CARDIOLOGY PROGRESS NOTE SUBJECTIVE: The patient remains on vent, poorly responsive, afebrile, on multiple antimicrobials. Monitored rhythm, sinus with atrial ectopy. OBJECTIVE: VITAL SIGNS: Blood pressure 144/57, pulse 83, respiratory rate 20. T-max 99. HEENT: Moderate secretions via trach, T-tube. LUNGS: Scattered rhonchi. HEART: Regular rhythm and rate. Normal S1, S2. ABDOMEN: Soft. EXTREMITIES: Trace edema. LABORATORY DATA: Sodium 144, potassium 3.5, bicarbonate 28, BUN 28, creatinine 0.6. Albumin 1.3. IMPRESSION: 1. Dehydration. 2. Hypernatremia, improved. 3. Prerenal azotemia and hypovolemia, resolved. 4. Hypokalemia, borderline. 5. Severe protein-calorie malnutrition. 6. Acute on chronic diastolic congestive heart failure due to third spacing. 7. Tracheostomy and respiratory failure. 8. Paroxysmal atrial ectopy. 9. Hypertensive heart disease. PLAN: 1. Adjust IV fluids. 2. Replace potassium. 3. Recheck magnesium. 4. Maintain adequate free water replacement. 5. Continue current antihypertensives and anti-failure regimen. 6. No role for diuresis presently. 7. DVT prophylaxis. 8. Respiratory hygiene. Jones Arauz M.D. : Shabbir JOB#: [id number] CC:
[2018-08-09] MEDS: Meropenem 1 GM in NS 55 ML IVPB SCH ×3 (02:30→20:01)
[2018-08-09] MEDS: Vancomycin 750mg/NS 250ml IVPB SCH ×2 (03:14→16:36)
[2018-08-09 04:00] VITALS: BP 144/68
[2018-08-09 04:54] LABS: ALANINE AMINOTRANSFERASE 13 U/L (12-78); ALBUMIN 1.3 G/DL (3.4-5.0); ALBUMIN/GLOBULIN RATIO 0.3 (1.0-2.7); ALKALINE PHOSPHATASE 355 U/L (46-116); ANION GAP 8 mmol/L (5-15); ASPARTATE AMINO TRANSFERASE 34 U/L (15-37); BILIRUBIN,TOTAL 0.6 MG/DL (0.2-1.0); BLOOD UREA NITROGEN 29 mg/dL (7-18); CALCIUM 8.4 MG/DL (8.5-10.1); CARBON DIOXIDE 28 MMOL/L (21-32); CHLORIDE 111 MMOL/L (98-107); CREATININE 0.6 MG/DL (0.55-1.30); POTASSIUM 3.8 MMOL/L (3.5-5.1); SODIUM 147 MMOL/L (136-145)
--- NOTE | 2018-08-09 07:09 | NUR ---
RESPIRATORY NOTE: Received pt. on 840 vent. Vent settings are: A/C rate of 12, Vt 500, FI02 30%, PEEP +5. No respiratory distress noted, Pt. Sp02 @ 100%. Ambu bag @ bs. Vent plugged on red outlet. Will continue to monitor pt.
--- NOTE | 2018-08-09 07:14 | NUR ---
HAND-OFF: Report given to Yariel RN, pt. remians stable and no signs and symptoms of distress noted.
[2018-08-09 08:00] VITALS: BP 144/82
--- NOTE | 2018-08-09 08:15 | NUR ---
NURSE NOTES: received pt in the bed, vent dependent, obtunded, vital signs stable, no SOB, no co pain, skin warm and dry to touch, dressing on sacral area and buttock dry and intact, tolerate GT feeding well,abdomen soft, bed in low position, HOB elevated.
[2018-08-09] MEDS: Metoprolol Tartrate 50mg tab GT SCH ×2 (08:25→20:01)
[2018-08-09] MEDS: Pyridoxine 50mg tab GT SCH (08:26)
[2018-08-09] MEDS: Aspirin Baby 81mg GT SCH (08:26)
[2018-08-09] MEDS: Isoniazid 300mg tab GT SCH (08:26)
[2018-08-09] MEDS: Zinc Sulfate 220mg cap GT SCH (08:27)
[2018-08-09] MEDS: Ascorbic Acid 500mg tab GT SCH (08:27)
[2018-08-09] MEDS: Multivitamins W/Minerals 15 ML UDC GT SCH (08:28)
[2018-08-09] MEDS: Docusate 100mg/10ml Liq GT SCH (08:28)
[2018-08-09] MEDS: levETIRAcetam 500mg/5ml Liquid GT SCH ×2 (08:28→20:03)
[2018-08-09] MEDS: Heparin 5000 units/ml inj SUBQ SCH ×2 (08:29→20:02)
[2018-08-09] MEDS: TERBINAFINE 1% TOPIC SCH ×2 (08:30→20:04)
--- NOTE | 2018-08-09 11:38 | Infectious Diseases Prog Note ---
"Assessment/Plan Assessment/Plan antibiotics : vancomycin iv, meropenem, isoniazid, rifampin, pyrazinamide, pyridoxine A 1. enterococcus | e.coli sepsis 2. pseudomonas pneumonia 3. e.coli UTI 4. pulmonary TB 5. leucocytosis improving 6. respiratory failure P 1. continue vancomycin iv, meropenem 2. add inhaled amikacin 3. continue isoniazid, rifampin, pyrazinamide, pyridoxine 4. will follow up cultures 5. 2 d echo Subjective ROS Limited/Unobtainable: Yes Allergies: Coded Allergies: No Known Allergies (Unverified , 01/27/17) Objective Vital Signs Last 24 Hour Vital Signs Date Time Temp Pulse Resp B/P (MAP) Pulse Ox O2 Delivery O2 Flow Rate FiO2 08/09/18 09:20 77 22 30 08/09/18 08:54 93 08/09/18 08:28 97 144/82 08/09/18 08:25 97 144/82 08/09/18 08:00 30 08/09/18 08:00 Mechanical Ventilator 08/09/18 08:00 99.6 97 18 144/82 (102) 98 08/09/18 07:07 101 20 30 08/09/18 05:02 94 21 30 08/09/18 04:00 98.7 85 21 144/68 (93) 99 08/09/18 04:00 Mechanical Ventilator 08/09/18 04:00 85 08/09/18 04:00 30 08/09/18 02:37 84 24 30 08/09/18 01:21 68 18 30 08/09/18 00:00 98.2 66 20 134/70 (91) 100 08/09/18 00:00 67 08/09/18 00:00 30 08/09/18 00:00 Mechanical Ventilator 08/08/18 23:16 69 21 30 08/08/18 20:53 69 20 30 08/08/18 20:34 70 134/78 08/08/18 20:00 Mechanical Ventilator 08/08/18 20:00 30 08/08/18 20:00 97.7 70 24 134/78 (96) 100 08/08/18 20:00 30 08/08/18 19:14 68 23 30 08/08/18 16:42 75 20 30 08/08/18 16:00 Mechanical Ventilator 1/4/19 16:00 30 08/08/18 16:00 98.4 74 18 140/69 (92) 97 08/08/18 16:00 75 08/08/18 14:32 79 18 30 08/08/18 12:40 76 18 30 08/08/18 12:12 30 08/08/18 12:00 69 08/08/18 12:00 Mechanical Ventilator 08/08/18 12:00 98.3 68 20 146/72 (96) 99 Height (Feet): 6 Height (Inches): 2.00 Weight (Pounds): 127 HEENT: status post trach Respiratory/Chest: lungs clear Cardiovascular: normal rate, regular rhythm, no gallop/murmur Abdomen: soft, non tender, other - GT Extremities: no edema Laboratory Tests Test 08/09/18 04:00 Sodium Level 147 MMOL/L (136-145) H Potassium Level 3.8 MMOL/L (3.5-5.1) Chloride Level 111 MMOL/L (98-107) H Carbon Dioxide Level 28 MMOL/L (21-32) Anion Gap 8 mmol/L (5-15) Blood Urea Nitrogen 29 mg/dL (7-18) H Creatinine 0.6 MG/DL (0.55-1.30) Estimat Glomerular Filtration Rate mL/min (>60) Glucose Level 120 MG/DL (74-106) H Calcium Level 8.4 MG/DL (8.5-10.1) L Total Bilirubin 0.6 MG/DL (0.2-1.0) Aspartate Amino Transf (AST/SGOT) 34 U/L (15-37) Alanine Aminotransferase (ALT/SGPT) 13 U/L (12-78) Alkaline Phosphatase 355 U/L (46-116) H Total Protein 6.2 G/DL (6.4-8.2) L Albumin 1.3 G/DL (3.4-5.0) L Globulin 4.9 g/dL Albumin/Globulin Ratio 0.3 (1.0-2.7) L Current Medications Medications (Trade) Dose Ordered Sig/Iram Route PRN Reason Start Time Stop Time Status Last Admin Dose Admin Acetaminophen (Tylenol) 650 mg Q6H PRN GT Mild Pain/Temp > 101.0 08/03/18 20:30 09/02/18 20:29 08/04/18 08:52 Amlodipine Besylate (Norvasc) 10 mg DAILY GT 08/04/18 09:00 09/03/18 08:59 08/09/18 08:28 Artificial Tears (Akwa-Tears) 2 drop DAILYPRN PRN BOTH EYES DRY EYES 08/03/18 20:30 09/02/18 20:29 Ascorbic Acid (Vitamin C) 500 mg DAILY GT 08/04/18 09:00 09/03/18 08:59 08/09/18 08:27 Aspirin (ASA) 81 mg DAILY GT 08/04/18 09:00 09/03/18 08:59 08/09/18 08:26 Atorvastatin Calcium (Lipitor) 10 mg BEDTIME GT 08/03/18 21:00 09/02/18 20:59 08/08/18 20:26 Bisacodyl (Dulcolax) 10 mg DAILYPRN PRN RECTAL constipation 08/03/18 20:30 09/02/18 20:29 Clotrimazole (Lotrimin) 1 applic Q12HR TOPIC 08/07/18 21:00 09/06/18 20:59 08/09/18 08:30 Docusate Sodium (Colace) 100 mg DAILY GT 08/04/18 09:00 09/03/18 08:59 08/09/18 08:28 Doxazosin Mesylate (Cardura) 1 mg QHS GT 08/03/18 21:00 09/02/18 20:59 08/08/18 20:26 Heparin Sodium (Porcine) (Heparin 5000 units/ml) 5,000 units EVERY 12 HOURS SUBQ 08/03/18 21:00 09/02/18 20:59 08/09/18 08:29 Isoniazid (Inh) 300 mg DAILY GT 08/04/18 09:00 09/03/18 08:59 08/09/18 08:26 Lansoprazole (Prevacid) 30 mg Q12HR GT 08/03/18 21:00 09/02/18 20:59 08/09/18 08:27 Levetiracetam (Keppra) 750 mg Q12HR GT 08/03/18 21:00 09/02/18 20:59 08/09/18 08:28 Magnesium Hydroxide (Mom) 30 ml DAILYPRN PRN GT CONSTIPATION 08/03/18 20:30 09/02/18 20:29 Meropenem 1 gm/ Sodium Chloride 55 ml @ 110 mls/hr Q8H IVPB 08/05/18 11:30 08/10/18 11:29 08/09/18 02:30 Metoprolol Tartrate (Lopressor) 50 mg EVERY 12 HOURS GT 08/03/18 21:00 09/02/18 20:59 08/09/18 08:25 Multivitamins (Multivitamins W/ Minerals 15ml Liquid) 15 ml DAILY GT 08/04/18 09:00 09/03/18 08:59 08/09/18 08:28 Ondansetron HCl (Zofran) 4 mg Q8H PRN IVP Nausea & Vomiting 08/03/18 20:30 09/02/18 20:29 Pyrazinamide (Pza) 1,000 mg DAILY GT 08/04/18 09:00 09/03/18 08:59 08/09/18 08:25 Pyridoxine HCl (Vitamin B6) 100 mg DAILY GT 08/04/18 09:00 09/03/18 08:59 08/09/18 08:26 Rifampin (Rifadin) 600 mg DAILY GT 08/04/18 09:00 09/03/18 08:59 08/09/18 08:27 Sodium Phosphate (Fleet's Sodium Phosl Enema) 133 ml DAILYPRN PRN RECTAL constipation 08/03/18 20:30 09/02/18 20:29 Terbinafine HCl (LaMISil 30gm) 1 applic EVERY 12 HOURS TOPIC 08/07/18 21:00 09/06/18 18:59 08/09/18 08:30 Vancomycin HCl (Vanco rx to dose) 1 ea DAILY PRN MISC Per rx protocol 08/07/18 11:15 09/06/18 11:14 Vancomycin/Sodium Chloride 250 ml @ 166.667 mls/hr Q12HR@0400,1600 IVPB 08/07/18 16:00 08/12/18 11:59 08/09/18 03:14 Zinc Sulfate (Zinc Sulfate) 220 mg DAILY GT 08/04/18 09:00 09/03/18 08:59 08/09/18 08:27 Sergio Urban MD Aug 09, 2018 11:38"
--- NOTE | 2018-08-09 11:56 | Pulmonology Progress Note ---
Assessment/Plan Assessment/Plan respiratory failure tachycardia sepsis leukocytosis anemia severe protein calorie malnutrition trach GT aspiration pneumonia urosepsis ho TB PLAN care noted and reviewed IV antibiotics- cultures/sens noted ID follow up respiratory care and monitor imaging Ventilatory support without change on AC aspiration precautions optimize for dc SNF meds supportive care suction as needed no wean oxygen therapy monitor labs nutrition as able and monitor albumin levels prognosis guarded impression, plan, and exam edited and reviewed in detail care discussed with RN Subjective ROS Limited/Unobtainable: Yes Allergies: Coded Allergies: No Known Allergies (Unverified , 01/27/17) Subjective cultures and sens noted on vent/poorly responsive overnight events reviewed Objective Last 24 Hour Vital Signs Date Time Temp Pulse Resp B/P (MAP) Pulse Ox O2 Delivery O2 Flow Rate FiO2 08/09/18 11:37 81 21 30 08/09/18 09:20 77 22 30 08/09/18 08:54 93 08/09/18 08:28 97 144/82 08/09/18 08:25 97 144/82 08/09/18 08:00 30 08/09/18 08:00 Mechanical Ventilator 08/09/18 08:00 99.6 97 18 144/82 (102) 98 08/09/18 07:07 101 20 30 08/09/18 05:02 94 21 30 08/09/18 04:00 98.7 85 21 144/68 (93) 99 08/09/18 04:00 Mechanical Ventilator 08/09/18 04:00 85 08/09/18 04:00 30 08/09/18 02:37 84 24 30 08/09/18 01:21 68 18 30 08/09/18 00:00 98.2 66 20 134/70 (91) 100 08/09/18 00:00 67 08/09/18 00:00 30 08/09/18 00:00 Mechanical Ventilator 08/08/18 23:16 69 21 30 08/08/18 20:53 69 20 30 08/08/18 20:34 70 134/78 08/08/18 20:00 Mechanical Ventilator 08/08/18 20:00 30 08/08/18 20:00 97.7 70 24 134/78 (96) 100 08/08/18 20:00 30 08/08/18 19:14 68 23 30 08/08/18 16:42 75 20 30 08/08/18 16:00 Mechanical Ventilator 08/08/18 16:00 30 08/08/18 16:00 98.4 74 18 140/69 (92) 97 08/08/18 16:00 75 08/08/18 14:32 79 18 30 08/08/18 12:40 76 18 30 08/08/18 12:12 30 08/08/18 12:00 69 08/08/18 12:00 Mechanical Ventilator 08/08/18 12:00 98.3 68 20 146/72 (96) 99 Intake and Output 08/08/18 08/09/18 19:00 07:00 Intake Total 745 ml 1558.2 ml Output Total 461 ml 400 ml Balance 284 ml 1158.2 ml Intake Free Water 200 ml 225 ml IV Total 553.2 ml Tube Feeding 425 ml 780 ml Other 120 ml Output Urine Total 460 ml 400 ml Stool Total 1 ml # Bowel Movements 1 3 Objective WDWN trach reduced breath sounds bilaterally with some rhonchi [id number] without MRG NABS nontender no HSM; GT no CCE contracted nonfocal poorly responsive reviewed and edited Laboratory Tests 08/09/18 04:00: Sodium Level 147H, Potassium Level 3.8, Chloride Level 111H, Carbon Dioxide Level 28, Anion Gap 8, Blood Urea Nitrogen 29H, Creatinine 0.6, Estimat Glomerular Filtration Rate , Glucose Level 120H, Calcium Level 8.4L, Total Bilirubin 0.6, Aspartate Amino Transf (AST/SGOT) 34, Alanine Aminotransferase ( ALT/SGPT) 13, Alkaline Phosphatase 355H, Total Protein 6.2L, Albumin 1.3L, Globulin 4.9, Albumin/Globulin Ratio 0.3L Current Medications Medications (Trade) Dose Ordered Sig/Iram Route PRN Reason Start Time Stop Time Status Last Admin Dose Admin Acetaminophen (Tylenol) 650 mg Q6H PRN GT Mild Pain/Temp > 101.0 08/03/18 20:30 09/02/18 20:29 08/04/18 08:52 Amikacin Sulfate (Amikin) 500 mg Q12HR@10,22 INH 08/09/18 22:00 08/16/18 21:59 Amlodipine Besylate (Norvasc) 10 mg DAILY GT 08/04/18 09:00 09/03/18 08:59 08/09/18 08:28 Artificial Tears (Akwa-Tears) 2 drop DAILYPRN PRN BOTH EYES DRY EYES 08/03/18 20:30 09/02/18 20:29 Ascorbic Acid (Vitamin C) 500 mg DAILY GT 08/04/18 09:00 09/03/18 08:59 08/09/18 08:27 Aspirin (ASA) 81 mg DAILY GT 08/04/18 09:00 09/03/18 08:59 08/09/18 08:26 Atorvastatin Calcium (Lipitor) 10 mg BEDTIME GT 08/03/18 21:00 09/02/18 20:59 08/08/18 20:26 Bisacodyl (Dulcolax) 10 mg DAILYPRN PRN RECTAL constipation 08/03/18 20:30 09/02/18 20:29 Clotrimazole (Lotrimin) 1 applic Q12HR TOPIC 08/07/18 21:00 09/06/18 20:59 08/09/18 08:30 Docusate Sodium (Colace) 100 mg DAILY GT 08/04/18 09:00 09/03/18 08:59 08/09/18 08:28 Doxazosin Mesylate (Cardura) 1 mg QHS GT 08/03/18 21:00 09/02/18 20:59 08/08/18 20:26 Heparin Sodium (Porcine) (Heparin 5000 units/ml) 5,000 units EVERY 12 HOURS SUBQ 08/03/18 21:00 09/02/18 20:59 08/09/18 08:29 Isoniazid (Inh) 300 mg DAILY GT 08/04/18 09:00 09/03/18 08:59 08/09/18 08:26 Lansoprazole (Prevacid) 30 mg Q12HR GT 08/03/18 21:00 09/02/18 20:59 08/09/18 08:27 Levetiracetam (Keppra) 750 mg Q12HR GT 08/03/18 21:00 09/02/18 20:59 08/09/18 08:28 Magnesium Hydroxide (Mom) 30 ml DAILYPRN PRN GT CONSTIPATION 08/03/18 20:30 09/02/18 20:29 Meropenem 1 gm/ Sodium Chloride 55 ml @ 110 mls/hr Q8H IVPB 08/05/18 11:30 08/10/18 11:29 08/09/18 11:39 Metoprolol Tartrate (Lopressor) 50 mg EVERY 12 HOURS GT 08/03/18 21:00 09/02/18 20:59 08/09/18 08:25 Multivitamins (Multivitamins W/ Minerals 15ml Liquid) 15 ml DAILY GT 08/04/18 09:00 09/03/18 08:59 08/09/18 08:28 Ondansetron HCl (Zofran) 4 mg Q8H PRN IVP Nausea & Vomiting 08/03/18 20:30 09/02/18 20:29 Pyrazinamide (Pza) 1,000 mg DAILY GT 08/04/18 09:00 09/03/18 08:59 08/09/18 08:25 Pyridoxine HCl (Vitamin B6) 100 mg DAILY GT 08/04/18 09:00 09/03/18 08:59 08/09/18 08:26 Rifampin (Rifadin) 600 mg DAILY GT 08/04/18 09:00 09/03/18 08:59 08/09/18 08:27 Sodium Phosphate (Fleet's Sodium Phosl Enema) 133 ml DAILYPRN PRN RECTAL constipation 08/03/18 20:30 09/02/18 20:29 Terbinafine HCl (LaMISil 30gm) 1 applic EVERY 12 HOURS TOPIC 08/07/18 21:00 09/06/18 18:59 08/09/18 08:30 Vancomycin HCl (Vanco rx to dose) 1 ea DAILY PRN MISC Per rx protocol 08/07/18 11:15 09/06/18 11:14 Vancomycin/Sodium Chloride 250 ml @ 166.667 mls/hr Q12HR@0400,1600 IVPB 08/07/18 16:00 08/12/18 11:59 08/09/18 03:14 Zinc Sulfate (Zinc Sulfate) 220 mg DAILY GT 08/04/18 09:00 09/03/18 08:59 08/09/18 08:27 Nakul Cisse MD Aug 09, 2018 11:56
[2018-08-09 12:00] VITALS: BP 139/68
--- NOTE | 2018-08-09 13:00 | NUR ---
NURSE NOTES: no any distress noted, tolerate feeding well, bed bath given, continue monitoring.
--- NOTE | 2018-08-09 13:28 | General Progress Note ---
Assessment/Plan Problem List: (1) Toxic metabolic encephalopathy ICD Codes: G92 - Toxic encephalopathy SNOMED: 147787002 (2) Status epilepticus ICD Codes: G40.901 - Epilepsy, unspecified, not intractable, with status epilepticus SNOMED: 178842562 (3) Hyperlipidemia ICD Codes: E78.5 - Hyperlipidemia, unspecified SNOMED: 63537951 (4) Dementia ICD Codes: F03.90 - Unspecified dementia without behavioral disturbance SNOMED: 79207720 (5) Aspiration pneumonia ICD Codes: J69.0 - Pneumonitis due to inhalation of food and vomit SNOMED: 749491309 (6) Abnormal LFTs ICD Codes: R94.5 - Abnormal results of liver function studies SNOMED: 936522184 (7) Aspiration pneumonia ICD Codes: J69.0 - Pneumonitis due to inhalation of food and vomit SNOMED: 649033788 (8) Encephalopathy ICD Codes: G93.40 - Encephalopathy, unspecified SNOMED: 69914855 (9) Sepsis ICD Codes: A41.9 - Sepsis, unspecified organism SNOMED: 72761131 (10) UTI (urinary tract infection), bacterial ICD Codes: N39.0 - Urinary tract infection, site not specified; A49.9 - Bacterial infection, unspecified SNOMED: 014370033 Status: stable, progressing Assessment/Plan cont iv abx per id follow up cultures echo vent support resp rx tb meds repeat lfts improved topical antifungal nail rx increase water flushes monitor labs/na wound care Subjective ROS Limited/Unobtainable: Yes Constitutional: Reports: malaise, weakness HEENT: Reports: no symptoms Cardiovascular: Reports: no symptoms Respiratory: Reports: no symptoms Gastrointestinal/Abdominal: Reports: difficulty swallowing Genitourinary: Reports: no symptoms Neurologic/Psychiatric: Reports: pre-existing deficit, seizure Endocrine: Reports: no symptoms Hematologic/Lymphatic: Reports: no symptoms Allergies: Coded Allergies: No Known Allergies (Unverified , 01/27/17) All Systems: reviewed and negative except above Subjective no events. stable on the vent. poorly responsive. no fevers. remains on multiple iv abx. Na higher Objective Last 24 Hour Vital Signs Date Time Temp Pulse Resp B/P (MAP) Pulse Ox O2 Delivery O2 Flow Rate FiO2 08/09/18 12:00 30 08/09/18 12:00 98.6 67 18 139/68 (91) 97 08/09/18 12:00 74 08/09/18 12:00 Mechanical Ventilator 08/09/18 11:37 81 21 30 08/09/18 09:20 77 22 30 08/09/18 08:54 93 08/09/18 08:28 97 144/82 08/09/18 08:25 97 144/82 08/09/18 08:00 30 08/09/18 08:00 Mechanical Ventilator 08/09/18 08:00 99.6 97 18 144/82 (102) 98 08/09/18 07:07 101 20 30 08/09/18 05:02 94 21 30 08/09/18 04:00 98.7 85 21 144/68 (93) 99 08/09/18 04:00 Mechanical Ventilator 08/09/18 04:00 85 08/09/18 04:00 30 08/09/18 02:37 84 24 30 08/09/18 01:21 68 18 30 08/09/18 00:00 98.2 66 20 134/70 (91) 100 08/09/18 00:00 67 08/09/18 00:00 30 08/09/18 00:00 Mechanical Ventilator 08/08/18 23:16 69 21 30 08/08/18 20:53 69 20 30 08/08/18 20:34 70 134/78 08/08/18 20:00 Mechanical Ventilator 08/08/18 20:00 30 08/08/18 20:00 97.7 70 24 134/78 (96) 100 08/08/18 20:00 30 08/08/18 19:14 68 23 30 08/08/18 16:42 75 20 30 08/08/18 16:00 Mechanical Ventilator 08/08/18 16:00 30 08/08/18 16:00 98.4 74 18 140/69 (92) 97 08/08/18 16:00 75 08/08/18 14:32 79 18 30 Intake and Output 08/08/18 08/09/18 19:00 07:00 Intake Total 745 ml 1558.2 ml Output Total 461 ml 400 ml Balance 284 ml 1158.2 ml Intake Free Water 200 ml 225 ml IV Total 553.2 ml Tube Feeding 425 ml 780 ml Other 120 ml Output Urine Total 460 ml 400 ml Stool Total 1 ml # Bowel Movements 1 3 Laboratory Tests 08/09/18 04:00: Sodium Level 147H, Potassium Level 3.8, Chloride Level 111H, Carbon Dioxide Level 28, Anion Gap 8, Blood Urea Nitrogen 29H, Creatinine 0.6, Estimat Glomerular Filtration Rate , Glucose Level 120H, Calcium Level 8.4L, Total Bilirubin 0.6, Aspartate Amino Transf (AST/SGOT) 34, Alanine Aminotransferase ( ALT/SGPT) 13, Alkaline Phosphatase 355H, Total Protein 6.2L, Albumin 1.3L, Globulin 4.9, Albumin/Globulin Ratio 0.3L Height (Feet): 6 Height (Inches): 2.00 Weight (Pounds): 127 Objective General Appearance: WD/WN, lethargic, confused Neck: supple Cardiovascular: normal peripheral pulses Respiratory/Chest: chest wall non-tender, lungs clear, normal breath sounds, no respiratory distress, no accessory muscle use Abdomen: normal bowel sounds, non tender, soft, no organomegaly Edema: no edema noted Arm (L), no edema noted Arm (R), no edema noted Leg (L), no edema noted Leg (R), no edema noted Pedal (L), no edema noted Pedal (R), no edema noted Generalized Neurologic: disoriented, unresponsive, aphasia Skin: hyperpigmented dystrophic nails Jarrod Vásquez MD Aug 09, 2018 13:28
--- NOTE | 2018-08-09 15:51 | Cardiology Report ---
APPROVED REPORT EKG Measurement Heart [id number] Normal sinus rhythm Normal ECG
[2018-08-09 16:00] VITALS: BP 139/75
--- NOTE | 2018-08-09 16:15 | NUR ---
CASE MANAGEMENT: REVIEW SI: PNA 98.6 67 18 139/68 SAT 97% MECH VENT FIO2 30% NA+147 BN 29 TCK+355 IS: AMIKACIN INH Q12 VANCO IV Q12HR MEROPENEM IV Q8HR NORVASC GT QD ASA GT QD INH GT QD PYRAZINAMIDE GT QD RIFAMPIN GT QD KEPPRA GT Q12HR STEP DOWN UNIT STATUS DCP: PATIENT IS FROM [facility]
--- NOTE | 2018-08-09 19:06 | NUR ---
RESPIRATORY NOTE: PT. RECEIVED STABLE ON CMV WITH CURRENT SETTINGS. VENT CIRCUIT AND SX TUBBING SECURE AND OUT OF THE WAY. NO S/S OF RESPIRATORY DISTRESS NOTED AT THIS TIME. WILL CONTINUE TO MONITOR.
--- NOTE | 2018-08-09 19:07 | NUR ---
HAND-OFF: Report given to DAWOOD REEVES.
--- NOTE | 2018-08-09 19:10 | NUR ---
NURSE NOTES: Received report from Yariel RN, pt. in bed obtunded, non-verbal, no signs and symptoms of acute distress noted, pt. appears to be tolerating current vent settings well- AC 12, TV 500, Fio2 at 30% and Peep of 5, Vital 1.5 running at 65cc/hr- no residual noted- via G tube, Manzo intact and draining to gravity, pt. comfort measures provided, pt. clean and dry, Rt. hand 22G IV intact and patent, cardiac monitoring on, safety measures continued, will continue with plan of care.
[2018-08-09 20:00] VITALS: BP 149/77
[2018-08-09] MEDS: Doxazosin 1mg Tab GT SCH (20:01)
--- NOTE | 2018-08-09 22:05 | NUR ---
NURSE NOTES: DR. Vásquez- called would like to change water flush from 75cc Q4hrs, to water flush 100cc Q4HRS- ordered carried out.
[2018-08-09] MEDS ORDERED: NS 275ml ONE (22:46)
[2018-08-09] MEDS: Amikacin for Inhalation 2ML INH SCH (22:57)
[2018-08-10] VITALS: BP 143/73
[2018-08-10] MEDS: Meropenem 1 GM in NS 55 ML IVPB SCH ×3 (02:30→20:11)
[2018-08-10] MEDS: Vancomycin 750mg/NS 250ml IVPB SCH ×2 (03:44→16:15)
--- NOTE | 2018-08-10 03:45 | Progress Note ---
DATE: 08/10/2018 CARDIOLOGY PROGRESS NOTE SUBJECTIVE: The patient is on ventilator. Poorly responsive. No fevers. On multiple antibiotics. OBJECTIVE: VITAL SIGNS: Blood pressure 139/68, pulse 67, and respirations 18. LUNGS: Bilateral breath sounds. Few rhonchi. HEART: Regular rhythm and rate. Normal S1 and S2. ABDOMEN: Soft. EXTREMITIES: Trace edema. LABORATORY DATA: Sodium 147, potassium 3.8, chloride 111, bicarbonate 28, BUN 29, and creatinine 0.6. Albumin 1.3. IMPRESSION: 1. Dehydration. 2. Hyponatremia. 3. Prerenal azotemia. 4. Severe protein-calorie malnutrition. 5. Respiratory failure with tracheostomy. 6. Chronic diastolic congestive heart failure. 7. Third spacing due to severe protein-calorie malnutrition. 8. Hypertensive heart disease with controlled blood pressure. PLAN: Ventilator support. Antimicrobials. Additional free water replacement. No diuretics. No change in cardiovascular/antihypertensive regimen. Remains serious with guarded prognosis. Jones Arauz M.D. DR: WILD JOB#: [id number] CC:
[2018-08-10 04:00] VITALS: BP 139/74
--- NOTE | 2018-08-10 04:59 | NUR ---
RESPIRATORY NOTE: PT. REMAINED STABLE ON CMV WITH CURRENT SETTING. VENT CIRCUIT AND SX TUBBING SECURE AND OUT OF THE WAY. SX PRN. NO S/S OF RESPIRATORY DISTRESS NOTED AT THIS TIME.
--- NOTE | 2018-08-10 07:05 | NUR ---
NURSE NOTES: Received report from Carina Hand RN. Patient is obtunded with no s/s of acute distress noted. ekg monitor shows sinus rhythm. Trach-vent settings: Shiley 6, AC 12, Vt 500, FiO2 30%, PEEP 5. Receiving Vital 1.5 @ 65 cc/hr via GT and tolerating well. Manzo catheter in place and draining. Right hand 22g IV saline lock, intact and patent. Bed locked in lowest position with padded side rails up x3. Call light left within reach. Will continue to monitor.
--- NOTE | 2018-08-10 07:14 | NUR ---
HAND-OFF: Report given to Cari REEVES, pt. remains stable and no signs or symtoms of acute distress noted.
[2018-08-10 08:00] VITALS: BP 144/68
--- NOTE | 2018-08-10 09:17 | Pulmonology Progress Note ---
Assessment/Plan Assessment/Plan respiratory failure tachycardia sepsis leukocytosis anemia severe protein calorie malnutrition trach GT aspiration pneumonia urosepsis ho TB PLAN care noted and reviewed IV antibiotics- WBC now normal ID follow up respiratory care and monitor imaging Ventilatory support without change on AC aspiration precautions optimize for dc SNF meds supportive care suction as needed no wean oxygen therapy monitor labs nutrition as able and monitor albumin levels prognosis guarded proceed with dc planning back to snf impression, plan, and exam edited and reviewed in detail care discussed with RN Subjective ROS Limited/Unobtainable: Yes Allergies: Coded Allergies: No Known Allergies (Unverified , 01/27/17) Subjective cultures and sens noted on vent/poorly responsive overnight events reviewed Objective Last 24 Hour Vital Signs Date Time Temp Pulse Resp B/P (MAP) Pulse Ox O2 Delivery O2 Flow Rate FiO2 08/10/18 08:48 69 18 30 08/10/18 08:00 97.7 66 20 144/68 (93) 100 08/10/18 07:58 64 08/10/18 07:15 67 20 30 08/10/18 04:59 70 20 30 08/10/18 04:00 Mechanical Ventilator 08/10/18 04:00 98.1 76 20 139/74 (95) 100 08/10/18 04:00 30 08/10/18 04:00 65 08/10/18 02:30 65 23 30 08/10/18 00:35 67 21 30 08/10/18 00:00 Mechanical Ventilator 08/10/18 00:00 66 08/10/18 00:00 97.7 69 24 143/73 (96) 100 08/10/18 00:00 30 08/09/18 23:12 67 19 99 Mechanical Ventilator 50 08/09/18 23:04 65 20 30 08/09/18 22:59 63 20 99 Mechanical Ventilator 30 08/09/18 21:34 63 20 30 08/09/18 20:01 72 149/77 08/09/18 20:00 Mechanical Ventilator 08/09/18 20:00 30 08/09/18 20:00 98.1 72 20 149/77 (101) 99 08/09/18 20:00 64 08/09/18 19:06 68 21 30 08/09/18 17:00 73 19 30 08/09/18 16:00 30 08/09/18 16:00 Mechanical Ventilator 08/09/18 16:00 66 08/09/18 16:00 98.1 66 22 139/75 (96) 99 08/09/18 15:20 74 20 30 08/09/18 13:50 78 20 30 08/09/18 12:00 30 08/09/18 12:00 98.6 67 18 139/68 (91) 97 08/09/18 12:00 74 08/09/18 12:00 Mechanical Ventilator 08/09/18 11:37 81 21 30 08/09/18 09:20 77 22 30 Intake and Output 08/09/18 08/10/18 19:00 07:00 Intake Total 1050.000 ml 1608.334 ml Output Total 550 ml Balance 500.000 ml 1608.334 ml Intake Free Water 225 ml 275 ml IV Total 305.000 ml 553.334 ml Tube Feeding 520 ml 780 ml Output Urine Total 550 ml # Bowel Movements 4 3 Objective WDWN trach reduced breath sounds bilaterally with some rhonchi [id number] without MRG NABS nontender no HSM; GT no CCE contracted nonfocal poorly responsive reviewed and edited Laboratory Tests 08/09/18 15:10: Vancomycin Level Trough 15.3H Current Medications Medications (Trade) Dose Ordered Sig/Iram Route PRN Reason Start Time Stop Time Status Last Admin Dose Admin Acetaminophen (Tylenol) 650 mg Q6H PRN GT Mild Pain/Temp > 101.0 08/03/18 20:30 09/02/18 20:29 08/04/18 08:52 Amikacin Sulfate (Amikin) 500 mg Q12HR@10,22 INH 08/09/18 22:00 08/16/18 21:59 08/09/18 22:57 Amlodipine Besylate (Norvasc) 10 mg DAILY GT 08/04/18 09:00 09/03/18 08:59 08/09/18 08:28 Artificial Tears (Akwa-Tears) 2 drop DAILYPRN PRN BOTH EYES DRY EYES 08/03/18 20:30 09/02/18 20:29 Ascorbic Acid (Vitamin C) 500 mg DAILY GT 08/04/18 09:00 09/03/18 08:59 08/09/18 08:27 Aspirin (ASA) 81 mg DAILY GT 08/04/18 09:00 09/03/18 08:59 08/09/18 08:26 Atorvastatin Calcium (Lipitor) 10 mg BEDTIME GT 08/03/18 21:00 09/02/18 20:59 08/09/18 20:01 Bisacodyl (Dulcolax) 10 mg DAILYPRN PRN RECTAL constipation 08/03/18 20:30 09/02/18 20:29 Clotrimazole (Lotrimin) 1 applic Q12HR TOPIC 08/07/18 21:00 09/06/18 20:59 08/09/18 20:04 Docusate Sodium (Colace) 100 mg DAILY GT 08/04/18 09:00 09/03/18 08:59 08/09/18 08:28 Doxazosin Mesylate (Cardura) 1 mg QHS GT 08/03/18 21:00 09/02/18 20:59 08/09/18 20:01 Heparin Sodium (Porcine) (Heparin 5000 units/ml) 5,000 units EVERY 12 HOURS SUBQ 08/03/18 21:00 09/02/18 20:59 08/09/18 20:02 Isoniazid (Inh) 300 mg DAILY GT 08/04/18 09:00 09/03/18 08:59 08/09/18 08:26 Lansoprazole (Prevacid) 30 mg Q12HR GT 08/03/18 21:00 09/02/18 20:59 08/09/18 20:01 Levetiracetam (Keppra) 750 mg Q12HR GT 08/03/18 21:00 09/02/18 20:59 08/09/18 20:03 Magnesium Hydroxide (Mom) 30 ml DAILYPRN PRN GT CONSTIPATION 08/03/18 20:30 09/02/18 20:29 Meropenem 1 gm/ Sodium Chloride 55 ml @ 110 mls/hr Q8H IVPB 08/05/18 11:30 08/15/18 11:29 08/10/18 02:30 Metoprolol Tartrate (Lopressor) 50 mg EVERY 12 HOURS GT 08/03/18 21:00 09/02/18 20:59 08/09/18 20:01 Multivitamins (Multivitamins W/ Minerals 15ml Liquid) 15 ml DAILY GT 08/04/18 09:00 09/03/18 08:59 08/09/18 08:28 Ondansetron HCl (Zofran) 4 mg Q8H PRN IVP Nausea & Vomiting 08/03/18 20:30 09/02/18 20:29 Pyrazinamide (Pza) 1,000 mg DAILY GT 08/04/18 09:00 09/03/18 08:59 08/09/18 08:25 Pyridoxine HCl (Vitamin B6) 100 mg DAILY GT 08/04/18 09:00 09/03/18 08:59 08/09/18 08:26 Rifampin (Rifadin) 600 mg DAILY GT 08/04/18 09:00 09/03/18 08:59 08/09/18 08:27 Sodium Phosphate (Fleet's Sodium Phosl Enema) 133 ml DAILYPRN PRN RECTAL constipation 08/03/18 20:30 09/02/18 20:29 Terbinafine HCl (LaMISil 30gm) 1 applic EVERY 12 HOURS TOPIC 08/07/18 21:00 09/06/18 18:59 08/09/18 20:04 Vancomycin HCl (Vanco rx to dose) 1 ea DAILY PRN MISC Per rx protocol 08/07/18 11:15 09/06/18 11:14 Vancomycin/Sodium Chloride 250 ml @ 166.667 mls/hr Q12HR@0400,1600 IVPB 08/07/18 16:00 08/12/18 11:59 08/10/18 03:44 Zinc Sulfate (Zinc Sulfate) 220 mg DAILY GT 08/04/18 09:00 09/03/18 08:59 08/09/18 08:27 Nakul Cisse MD Aug 10, 2018 09:17
[2018-08-10] MEDS: Docusate 100mg/10ml Liq GT SCH (09:20)
[2018-08-10] MEDS: levETIRAcetam 500mg/5ml Liquid GT SCH ×2 (09:21→20:12)
[2018-08-10] MEDS: Multivitamins W/Minerals 15 ML UDC GT SCH (09:21)
[2018-08-10] MEDS: Isoniazid 300mg tab GT SCH (09:22)
[2018-08-10] MEDS: Aspirin Baby 81mg GT SCH (09:22)
[2018-08-10] MEDS: Zinc Sulfate 220mg cap GT SCH (09:22)
[2018-08-10] MEDS: Pyridoxine 50mg tab GT SCH (09:22)
[2018-08-10] MEDS: Ascorbic Acid 500mg tab GT SCH (09:22)
[2018-08-10] MEDS: Metoprolol Tartrate 50mg tab GT SCH ×2 (09:23→20:15)
[2018-08-10] MEDS: Heparin 5000 units/ml inj SUBQ SCH ×2 (09:24→20:17)
[2018-08-10] MEDS: TERBINAFINE 1% TOPIC SCH ×2 (09:26→20:18)
--- NOTE | 2018-08-10 09:36 | NUR ---
CASE MANAGEMENT: REVIEW 08/10/18 SI: PNA 97.7 66 20 144/68 SAT 100% MECH VENT FIO2 30% IS: AMIKACIN INH Q12 VANCO IV Q12HR MEROPENEM IV Q8HR NORVASC GT QD ASA GT QD INH GT QD PYRAZINAMIDE GT QD RIFAMPIN GT QD KEPPRA GT Q12HR STEP DOWN UNIT STATUS DCP: PATIENT IS FROM [facility]
--- NOTE | 2018-08-10 10:28 | Infectious Diseases Prog Note ---
Assessment/Plan Assessment/Plan A; E. Coli & Enterococcus sepsis E. 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 P: Continue IV meropenem , IV Vancomycin & Amikacin inhaler Continue TB medication Infectious control evaluation for tapering or stopping TB medications Subjective ROS Limited/Unobtainable: Yes Constitutional: Reports: no symptoms Allergies: Coded Allergies: No Known Allergies (Unverified , 01/27/17) Objective Vital Signs Last 24 Hour Vital Signs Date Time Temp Pulse Resp B/P (MAP) Pulse Ox O2 Delivery O2 Flow Rate FiO2 08/10/18 09:23 69 144/68 08/10/18 09:22 69 144/68 08/10/18 08:48 69 18 30 08/10/18 08:00 97.7 66 20 144/68 (93) 100 08/10/18 07:58 64 08/10/18 07:15 67 20 30 08/10/18 04:59 70 20 30 08/10/18 04:00 Mechanical Ventilator 08/10/18 04:00 98.1 76 20 139/74 (95) 100 08/10/18 04:00 30 08/10/18 04:00 65 08/10/18 02:30 65 23 30 08/10/18 00:35 67 21 30 08/10/18 00:00 Mechanical Ventilator 08/10/18 00:00 66 08/10/18 00:00 97.7 69 24 143/73 (96) 100 08/10/18 00:00 30 08/09/18 23:12 67 19 99 Mechanical Ventilator 50 08/09/18 23:04 65 20 30 08/09/18 22:59 63 20 99 Mechanical Ventilator 30 08/09/18 21:34 63 20 30 08/09/18 20:01 72 149/77 08/09/18 20:00 Mechanical Ventilator 08/09/18 20:00 30 08/09/18 20:00 98.1 72 20 149/77 (101) 99 08/09/18 20:00 64 08/09/18 19:06 68 21 30 08/09/18 17:00 73 19 30 08/09/18 16:00 30 08/09/18 16:00 Mechanical Ventilator 08/09/18 16:00 66 08/09/18 16:00 98.1 66 22 139/75 (96) 99 08/09/18 15:20 74 20 30 08/09/18 13:50 78 20 30 08/09/18 12:00 30 08/09/18 12:00 98.6 67 18 139/68 (91) 97 08/09/18 12:00 74 08/09/18 12:00 Mechanical Ventilator 08/09/18 11:37 81 21 30 Height (Feet): 6 Height (Inches): 2.00 Weight (Pounds): 127 General Appearance: cachetic HEENT: status post trach Respiratory/Chest: lungs clear, other - on ventilator Cardiovascular: normal rate Abdomen: soft, non tender, other - GT feeding Extremities: no edema Neurologic/Psychiatric: aphasia Musculoskeletal: atrophy Laboratory Tests Test 08/09/18 15:10 Vancomycin Level Trough 15.3 ug/mL (5.0-12.0) H Current Medications Medications (Trade) Dose Ordered Sig/Iram Route PRN Reason Start Time Stop Time Status Last Admin Dose Admin Acetaminophen (Tylenol) 650 mg Q6H PRN GT Mild Pain/Temp > 101.0 08/03/18 20:30 09/02/18 20:29 08/04/18 08:52 Amikacin Sulfate (Amikin) 500 mg Q12HR@10,22 INH 08/09/18 22:00 08/16/18 21:59 08/09/18 22:57 Amlodipine Besylate (Norvasc) 10 mg DAILY GT 08/04/18 09:00 09/03/18 08:59 08/10/18 09:22 Artificial Tears (Akwa-Tears) 2 drop DAILYPRN PRN BOTH EYES DRY EYES 08/03/18 20:30 09/02/18 20:29 Ascorbic Acid (Vitamin C) 500 mg DAILY GT 08/04/18 09:00 09/03/18 08:59 08/10/18 09:22 Aspirin (ASA) 81 mg DAILY GT 08/04/18 09:00 09/03/18 08:59 08/10/18 09:22 Atorvastatin Calcium (Lipitor) 10 mg BEDTIME GT 08/03/18 21:00 09/02/18 20:59 08/09/18 20:01 Bisacodyl (Dulcolax) 10 mg DAILYPRN PRN RECTAL constipation 08/03/18 20:30 09/02/18 20:29 Clotrimazole (Lotrimin) 1 applic Q12HR TOPIC 08/07/18 21:00 09/06/18 20:59 08/10/18 09:26 Docusate Sodium (Colace) 100 mg DAILY GT 08/04/18 09:00 09/03/18 08:59 08/10/18 09:20 Doxazosin Mesylate (Cardura) 1 mg QHS GT 08/03/18 21:00 09/02/18 20:59 08/09/18 20:01 Heparin Sodium (Porcine) (Heparin 5000 units/ml) 5,000 units EVERY 12 HOURS SUBQ 08/03/18 21:00 09/02/18 20:59 08/10/18 09:24 Isoniazid (Inh) 300 mg DAILY GT 08/04/18 09:00 09/03/18 08:59 08/10/18 09:22 Lansoprazole (Prevacid) 30 mg Q12HR GT 08/03/18 21:00 09/02/18 20:59 08/10/18 09:21 Levetiracetam (Keppra) 750 mg Q12HR GT 08/03/18 21:00 09/02/18 20:59 08/10/18 09:21 Magnesium Hydroxide (Mom) 30 ml DAILYPRN PRN GT CONSTIPATION 08/03/18 20:30 09/02/18 20:29 Meropenem 1 gm/ Sodium Chloride 55 ml @ 110 mls/hr Q8H IVPB 08/05/18 11:30 08/15/18 11:29 08/10/18 02:30 Metoprolol Tartrate (Lopressor) 50 mg EVERY 12 HOURS GT 08/03/18 21:00 09/02/18 20:59 08/10/18 09:23 Multivitamins (Multivitamins W/ Minerals 15ml Liquid) 15 ml DAILY GT 08/04/18 09:00 09/03/18 08:59 08/10/18 09:21 Ondansetron HCl (Zofran) 4 mg Q8H PRN IVP Nausea & Vomiting 08/03/18 20:30 09/02/18 20:29 Pyrazinamide (Pza) 1,000 mg DAILY GT 08/04/18 09:00 09/03/18 08:59 08/10/18 09:20 Pyridoxine HCl (Vitamin B6) 100 mg DAILY GT 08/04/18 09:00 09/03/18 08:59 08/10/18 09:22 Rifampin (Rifadin) 600 mg DAILY GT 08/04/18 09:00 09/03/18 08:59 08/10/18 09:20 Sodium Phosphate (Fleet's Sodium Phosl Enema) 133 ml DAILYPRN PRN RECTAL constipation 08/03/18 20:30 09/02/18 20:29 Terbinafine HCl (LaMISil 30gm) 1 applic EVERY 12 HOURS TOPIC 08/07/18 21:00 09/06/18 18:59 08/10/18 09:26 Vancomycin HCl (Vanco rx to dose) 1 ea DAILY PRN MISC Per rx protocol 08/07/18 11:15 09/06/18 11:14 Vancomycin/Sodium Chloride 250 ml @ 166.667 mls/hr Q12HR@0400,1600 IVPB 08/07/18 16:00 08/12/18 11:59 08/10/18 03:44 Zinc Sulfate (Zinc Sulfate) 220 mg DAILY GT 08/04/18 09:00 09/03/18 08:59 08/10/18 09:22 Rahul Shen MD Aug 10, 2018 10:28
[2018-08-10] MEDS: Amikacin for Inhalation 2ML INH SCH ×2 (10:38→21:19)
[2018-08-10] MEDS ORDERED: NS 275ml ONE (11:12)
[2018-08-10 12:00] VITALS: BP 142/71
--- NOTE | 2018-08-10 12:05 | General Progress Note ---
Assessment/Plan Problem List: (1) Toxic metabolic encephalopathy ICD Codes: G92 - Toxic encephalopathy SNOMED: 912118863 (2) Status epilepticus ICD Codes: G40.901 - Epilepsy, unspecified, not intractable, with status epilepticus SNOMED: 948239804 (3) Hyperlipidemia ICD Codes: E78.5 - Hyperlipidemia, unspecified SNOMED: 84568573 (4) Dementia ICD Codes: F03.90 - Unspecified dementia without behavioral disturbance SNOMED: 97614010 (5) Aspiration pneumonia ICD Codes: J69.0 - Pneumonitis due to inhalation of food and vomit SNOMED: 542756981 (6) Abnormal LFTs ICD Codes: R94.5 - Abnormal results of liver function studies SNOMED: 123209102 (7) Aspiration pneumonia ICD Codes: J69.0 - Pneumonitis due to inhalation of food and vomit SNOMED: 350561107 (8) Encephalopathy ICD Codes: G93.40 - Encephalopathy, unspecified SNOMED: 38776372 (9) Sepsis ICD Codes: A41.9 - Sepsis, unspecified organism SNOMED: 27039108 (10) UTI (urinary tract infection), bacterial ICD Codes: N39.0 - Urinary tract infection, site not specified; A49.9 - Bacterial infection, unspecified SNOMED: 794065777 Status: stable Assessment/Plan cont iv abx per id follow up cultures echo vent support resp rx tb meds repeat lfts improved topical antifungal nail rx increase water flushes monitor labs/na wound care dc planning tomorrow Subjective ROS Limited/Unobtainable: Yes Constitutional: Reports: malaise, weakness HEENT: Reports: no symptoms Cardiovascular: Reports: no symptoms Respiratory: Reports: cough, shortness of breath, sputum Gastrointestinal/Abdominal: Reports: difficulty swallowing Genitourinary: Reports: no symptoms Neurologic/Psychiatric: Reports: pre-existing deficit, seizure Endocrine: Reports: no symptoms Hematologic/Lymphatic: Reports: anemia Allergies: Coded Allergies: No Known Allergies (Unverified , 01/27/17) All Systems: reviewed and negative except above Subjective no events. stable on the vent. poorly responsive. no fevers. remains on multiple iv abx. Na higher. family requesting pt be given more water Objective Last 24 Hour Vital Signs Date Time Temp Pulse Resp B/P (MAP) Pulse Ox O2 Delivery O2 Flow Rate FiO2 08/10/18 10:47 66 19 99 Mechanical Ventilator 50 08/10/18 10:38 68 20 99 Mechanical Ventilator 30 08/10/18 10:38 68 18 30 08/10/18 09:23 69 144/68 08/10/18 09:22 69 144/68 08/10/18 08:48 69 18 30 08/10/18 08:00 30 08/10/18 08:00 Mechanical Ventilator 08/10/18 08:00 97.7 66 20 144/68 (93) 100 08/10/18 07:58 64 08/10/18 07:15 67 20 30 08/10/18 04:59 70 20 30 08/10/18 04:00 Mechanical Ventilator 08/10/18 04:00 98.1 76 20 139/74 (95) 100 08/10/18 04:00 30 08/10/18 04:00 65 08/10/18 02:30 65 23 30 08/10/18 00:35 67 21 30 08/10/18 00:00 Mechanical Ventilator 08/10/18 00:00 66 08/10/18 00:00 97.7 69 24 143/73 (96) 100 08/10/18 00:00 30 08/09/18 23:12 67 19 99 Mechanical Ventilator 50 08/09/18 23:04 65 20 30 08/09/18 22:59 63 20 99 Mechanical Ventilator 30 08/09/18 21:34 63 20 30 08/09/18 20:01 72 149/77 08/09/18 20:00 Mechanical Ventilator 08/09/18 20:00 30 08/09/18 20:00 98.1 72 20 149/77 (101) 99 08/09/18 20:00 64 08/09/18 19:06 68 21 30 08/09/18 17:00 73 19 30 08/09/18 16:00 30 08/09/18 16:00 Mechanical Ventilator 08/09/18 16:00 66 08/09/18 16:00 98.1 66 22 139/75 (96) 99 08/09/18 15:20 74 20 30 08/09/18 13:50 78 20 30 08/09/18 12:00 30 08/09/18 12:00 98.6 67 18 139/68 (91) 97 08/09/18 12:00 74 08/09/18 12:00 Mechanical Ventilator Intake and Output 08/09/18 08/10/18 19:00 07:00 Intake Total 1050.000 ml 1673.334 ml Output Total 550 ml Balance 500.000 ml 1673.334 ml Intake Free Water 225 ml 275 ml IV Total 305.000 ml 553.334 ml Tube Feeding 520 ml 845 ml Output Urine Total 550 ml # Bowel Movements 4 3 Laboratory Tests 08/09/18 15:10: Vancomycin Level Trough 15.3H Height (Feet): 6 Height (Inches): 2.00 Weight (Pounds): 127 Objective General Appearance: WD/WN, lethargic, confused Neck: supple Cardiovascular: normal peripheral pulses Respiratory/Chest: chest wall non-tender, lungs clear, normal breath sounds, no respiratory distress, no accessory muscle use Abdomen: normal bowel sounds, non tender, soft, no organomegaly Edema: no edema noted Arm (L), no edema noted Arm (R), no edema noted Leg (L), no edema noted Leg (R), no edema noted Pedal (L), no edema noted Pedal (R), no edema noted Generalized Neurologic: disoriented, unresponsive, aphasia Skin: hyperpigmented dystrophic nails Jarrod Vásquez MD Aug 10, 2018 12:05
[2018-08-10 16:00] VITALS: BP 151/79
--- NOTE | 2018-08-10 19:20 | NUR ---
HAND-OFF: Report given to Mellisa Mtz RN.
--- NOTE | 2018-08-10 19:21 | NUR ---
NURSE NOTES: Beside report received from LALA Alcala. Patient is obtunded, responds to deep pain. ekg monitor tech showing NSR. Trach-vent settings: Shiley 6, AC 12, Vt 500, FiO2 30%, PEEP 5, sating at 100%. Receiving Vital 1.5 @ 65 cc/hr via GT, no residual Manzo catheter for urinary retention, draining. Right hand 22g IV saline lock, intact and patent. Bed locked in lowest position, bed alarm on, call light within reach, padded side rails up x3. Will continue to monitor and follow plan of care..
[2018-08-10 20:00] VITALS: BP 146/73
[2018-08-10] MEDS: Doxazosin 1mg Tab GT SCH (20:14)
[2018-08-11] VITALS: BP 146/67
[2018-08-11] MEDS: Meropenem 1 GM in NS 55 ML IVPB SCH ×3 (02:32→20:31)
[2018-08-11] MEDS: Vancomycin 750mg/NS 250ml IVPB SCH ×2 (03:08→15:23)
[2018-08-11] MEDS: Acetaminophen 650mg/20.3ml GT PRN (03:14)
[2018-08-11 04:00] VITALS: BP 148/80
--- NOTE | 2018-08-11 04:45 | Progress Note ---
DATE: 08/10/2018 CARDIOLOGY PROGRESS NOTE SUBJECTIVE: The patient remains on ventilator support. Blood cultures are positive for Enterococcus and E. coli. Echocardiogram was done today revealing no specific valvular pathology to suggest endocarditis, however study was limited. PHYSICAL EXAMINATION: LUNGS: Diminished breath sounds. HEART: Regular rhythm rate. Normal S1, S2. ABDOMEN: Soft. EXTREMITIES: No edema. IMPRESSION: 1. Bacteremia with Enterococcus and E. Coli. 2. Increased risk of endocarditis. 3. Respiratory failure with tracheostomy. 4. Chronic diastolic congestive heart failure with hypertensive heart disease. 5. Dehydration. 6. Hypernatremia. PLAN: 1. Consideration for KURT. 2. Antimicrobials per ID. 3. Respiratory hygiene. 4. Continue free water replacement. Jones Arauz M.D. DR: PHILOMENA JOB#: [id number] CC:
[2018-08-11 05:31] LABS: BASOPHILS % (AUTO) 0.4 % (0.0-2.0); EOSINOPHILS % (AUTO) 1.3 % (0.0-3.0); HEMATOCRIT 30.1 % (42.0-52.0); HEMOGLOBIN 9.6 G/DL (14.2-18.0); LYMPHOCYTES % (AUTO) 13.7 % (20.0-45.0); MEAN CORPUSCULAR VOLUME 90 FL (80-99); MONOCYTES % (AUTO) 9.2 % (1.0-10.0); NEUTROPHILS % (AUTO) 75.4 % (45.0-75.0); PLATELET COUNT 316 K/UL (150-450); RED BLOOD COUNT 3.36 M/UL (4.70-6.10); RED CELL DISTRIBUTION WIDTH 17.9 % (11.6-14.8); WHITE BLOOD COUNT 6.5 K/UL (4.8-10.8)
[2018-08-11 05:59] LABS: ALANINE AMINOTRANSFERASE 8 U/L (12-78); ALBUMIN 1.3 G/DL (3.4-5.0); ALBUMIN/GLOBULIN RATIO 0.3 (1.0-2.7); ALKALINE PHOSPHATASE 365 U/L (46-116); ANION GAP 6 mmol/L (5-15); ASPARTATE AMINO TRANSFERASE 36 U/L (15-37); BILIRUBIN,TOTAL 0.5 MG/DL (0.2-1.0); BLOOD UREA NITROGEN 30 mg/dL (7-18); CALCIUM 8.6 MG/DL (8.5-10.1); CARBON DIOXIDE 27 MMOL/L (21-32); CHLORIDE 112 MMOL/L (98-107); CREATININE 0.4 MG/DL (0.55-1.30); POTASSIUM 4.4 MMOL/L (3.5-5.1); SODIUM 145 MMOL/L (136-145)
--- NOTE | 2018-08-11 07:04 | NUR ---
HAND-OFF: Report given to LALA Yun.
--- NOTE | 2018-08-11 07:05 | NUR ---
NURSE NOTES: Received patient from LALA Sultana. Patient in bed and obtunded. On trach to vent dependent. No SOB. Respirations are even and unlaboured. clock and watch hands painter is in placed. Tolerating gtube feeding. Manzo is in placed and draining well. IV site is asymptomatic. Bed in lowest position with side rails up. Will continue to follow plan of care.
--- NOTE | 2018-08-11 07:20 | General Progress Note ---
Assessment/Plan Problem List: (1) Toxic metabolic encephalopathy ICD Codes: G92 - Toxic encephalopathy SNOMED: 710432262 (2) Status epilepticus ICD Codes: G40.901 - Epilepsy, unspecified, not intractable, with status epilepticus SNOMED: 046623096 (3) Hyperlipidemia ICD Codes: E78.5 - Hyperlipidemia, unspecified SNOMED: 06709021 (4) Dementia ICD Codes: F03.90 - Unspecified dementia without behavioral disturbance SNOMED: 14288928 (5) Aspiration pneumonia ICD Codes: J69.0 - Pneumonitis due to inhalation of food and vomit SNOMED: 412146323 (6) Abnormal LFTs ICD Codes: R94.5 - Abnormal results of liver function studies SNOMED: 591532260 (7) Aspiration pneumonia ICD Codes: J69.0 - Pneumonitis due to inhalation of food and vomit SNOMED: 942961970 (8) Encephalopathy ICD Codes: G93.40 - Encephalopathy, unspecified SNOMED: 86646404 (9) Sepsis ICD Codes: A41.9 - Sepsis, unspecified organism SNOMED: 49079382 (10) UTI (urinary tract infection), bacterial ICD Codes: N39.0 - Urinary tract infection, site not specified; A49.9 - Bacterial infection, unspecified SNOMED: 209797750 Status: stable, not improved Assessment/Plan cont iv abx per id tylenol for fevers vent support resp rx tb meds gt feeds/water flush monitor labs/na wound care ID follow regarding fevers ?dc planning Subjective ROS Limited/Unobtainable: Yes Constitutional: Reports: malaise, weakness HEENT: Reports: no symptoms Cardiovascular: Reports: no symptoms Respiratory: Reports: shortness of breath Gastrointestinal/Abdominal: Reports: difficulty swallowing Genitourinary: Reports: no symptoms Neurologic/Psychiatric: Reports: pre-existing deficit, seizure Endocrine: Reports: no symptoms Hematologic/Lymphatic: Reports: no symptoms Allergies: Coded Allergies: No Known Allergies (Unverified , 01/27/17) All Systems: reviewed and negative except above Subjective no events. stable on the vent. poorly responsive. low grade fevers. remains on multiple iv abx. Na higher. Objective Last 24 Hour Vital Signs Date Time Temp Pulse Resp B/P (MAP) Pulse Ox O2 Delivery O2 Flow Rate FiO2 08/11/18 06:39 58 20 30 08/11/18 04:57 58 19 30 08/11/18 04:00 70 08/11/18 04:00 100.4 66 22 148/80 (102) 100 08/11/18 04:00 30 08/11/18 04:00 Mechanical Ventilator 08/11/18 03:44 97.9 08/11/18 03:15 70 20 30 08/11/18 01:25 63 20 30 08/11/18 00:00 63 08/11/18 00:00 99.5 64 23 146/67 (93) 100 08/11/18 00:00 Mechanical Ventilator 08/10/18 22:57 63 16 30 08/10/18 21:33 63 15 100 Mechanical Ventilator 30 08/10/18 21:16 64 20 30 08/10/18 21:15 64 20 100 Mechanical Ventilator 30 08/10/18 20:15 68 142/68 08/10/18 20:00 Mechanical Ventilator 08/10/18 20:00 65 08/10/18 20:00 98.8 68 21 146/73 (97) 100 08/10/18 20:00 30 08/10/18 19:52 63 20 30 08/10/18 16:55 64 18 30 08/10/18 16:12 65 08/10/18 16:00 98.4 65 23 151/79 (103) 100 08/10/18 16:00 30 08/10/18 16:00 Mechanical Ventilator 08/10/18 14:14 63 20 30 08/10/18 12:00 Mechanical Ventilator 08/10/18 12:00 30 08/10/18 12:00 97.9 59 20 142/71 (94) 100 08/10/18 11:43 57 08/10/18 10:47 66 19 99 Mechanical Ventilator 50 08/10/18 10:38 68 20 99 Mechanical Ventilator 30 08/10/18 10:38 68 18 30 08/10/18 09:23 69 144/68 08/10/18 09:22 69 144/68 08/10/18 08:48 69 18 30 08/10/18 08:00 30 08/10/18 08:00 Mechanical Ventilator 08/10/18 08:00 97.7 66 20 144/68 (93) 100 08/10/18 07:58 64 Intake and Output 08/10/18 08/11/18 18:59 06:59 Intake Total 1240.000 ml 1440.000 ml Output Total 500 ml 450 ml Balance 740.000 ml 990.000 ml Intake Free Water 300 ml 300 ml IV Total 305.000 ml 360.000 ml Tube Feeding 585 ml 780 ml Other 50 ml Output Urine Total 500 ml 450 ml # Bowel Movements 2 1 Laboratory Tests 08/11/18 03:20: White Blood Count 6.5, Red Blood Count 3.36L, Hemoglobin 9.6L, Hematocrit 30.1L , Mean Corpuscular Volume 90, Mean Corpuscular Hemoglobin 28.6, Mean Corpuscular Hemoglobin Concent 31.9L, Red Cell Distribution Width 17.9H, Platelet Count 316, Mean Platelet Volume 4.9L, Neutrophils (%) (Auto) 75.4H, Lymphocytes (%) (Auto) 13.7L, Monocytes (%) (Auto) 9.2, Eosinophils (%) (Auto) 1.3, Basophils (%) (Auto) 0.4, Sodium Level 145, Potassium Level 4.4, Chloride Level 112H, Carbon Dioxide Level 27, Anion Gap 6, Blood Urea Nitrogen 30H, Creatinine 0.4L, Estimat Glomerular Filtration Rate , Glucose Level 100, Calcium Level 8.6, Total Bilirubin 0.5, Aspartate Amino Transf (AST/SGOT) 36, Alanine Aminotransferase (ALT/SGPT) 8L, Alkaline Phosphatase 365H, Total Protein 6.1L, Albumin 1.3L, Globulin 4.8, Albumin/Globulin Ratio 0.3L Height (Feet): 6 Height (Inches): 2.00 Weight (Pounds): 127 Objective General Appearance: WD/WN, lethargic, confused Neck: supple Cardiovascular: normal peripheral pulses Respiratory/Chest: chest wall non-tender, lungs clear, normal breath sounds, no respiratory distress, no accessory muscle use Abdomen: normal bowel sounds, non tender, soft, no organomegaly Edema: no edema noted Arm (L), no edema noted Arm (R), no edema noted Leg (L), no edema noted Leg (R), no edema noted Pedal (L), no edema noted Pedal (R), no edema noted Generalized Neurologic: disoriented, unresponsive, aphasia Skin: hyperpigmented dystrophic nails Jarrod Vásquez MD Aug 11, 2018 07:20
[2018-08-11 08:00] VITALS: BP 159/83
[2018-08-11] MEDS: Docusate 100mg/10ml Liq GT SCH (09:02)
[2018-08-11] MEDS: Multivitamins W/Minerals 15 ML UDC GT SCH (09:02)
[2018-08-11] MEDS: TERBINAFINE 1% TOPIC SCH ×2 (09:02→20:31)
[2018-08-11] MEDS: levETIRAcetam 500mg/5ml Liquid GT SCH ×2 (09:02→20:32)
[2018-08-11] MEDS: Aspirin Baby 81mg GT SCH (09:03)
[2018-08-11] MEDS: Metoprolol Tartrate 50mg tab GT SCH (09:03)
[2018-08-11] MEDS: Ascorbic Acid 500mg tab GT SCH (09:03)
[2018-08-11] MEDS: Isoniazid 300mg tab GT SCH (09:03)
[2018-08-11] MEDS: Pyridoxine 50mg tab GT SCH (09:05)
[2018-08-11] MEDS: Heparin 5000 units/ml inj SUBQ SCH ×2 (09:05→20:34)
[2018-08-11] MEDS: Zinc Sulfate 220mg cap GT SCH (09:06)
[2018-08-11] MEDS ORDERED: NS 275ml ONE (09:18)
[2018-08-11] MEDS: Amikacin for Inhalation 2ML INH SCH ×2 (09:50→23:16)
--- NOTE | 2018-08-11 11:17 | Infectious Diseases Prog Note ---
"Assessment/Plan Assessment/Plan antibiotics : vancomycin iv, meropenem, inhaled amikacin, isoniazid, rifampin, pyrazinamide, pyridoxine A 1. enterococcus | e.coli sepsis 2. pseudomonas pneumonia 3. e.coli UTI 4. pulmonary TB 5. leucocytosis improving 6. respiratory failure P 1. continue vancomycin iv 19 more days 2. continue meropenem 3 more days 3. continue inhaled amikacin 4 more days 4. continue isoniazid, rifampin, pyrazinamide, pyridoxine 5. will follow up cultures Subjective ROS Limited/Unobtainable: Yes Allergies: Coded Allergies: No Known Allergies (Unverified , 01/27/17) Objective Vital Signs Last 24 Hour Vital Signs Date Time Temp Pulse Resp B/P (MAP) Pulse Ox O2 Delivery O2 Flow Rate FiO2 08/11/18 10:43 54 20 30 08/11/18 10:00 54 12 100 Mechanical Ventilator 30 08/11/18 09:51 54 12 100 Mechanical Ventilator 30 08/11/18 09:08 60 20 30 08/11/18 09:03 60 159/83 08/11/18 09:03 60 159/83 08/11/18 08:00 30 08/11/18 08:00 97.7 60 20 159/83 (108) 100 08/11/18 08:00 Mechanical Ventilator 08/11/18 07:34 70 08/11/18 06:39 58 20 30 08/11/18 04:57 58 19 30 08/11/18 04:00 70 08/11/18 04:00 100.4 66 22 148/80 (102) 100 08/11/18 04:00 30 08/11/18 04:00 Mechanical Ventilator 08/11/18 03:44 97.9 08/11/18 03:15 70 20 30 08/11/18 01:25 63 20 30 08/11/18 00:00 63 08/11/18 00:00 99.5 64 23 146/67 (93) 100 08/11/18 00:00 Mechanical Ventilator 08/10/18 22:57 63 16 30 08/10/18 21:33 63 15 100 Mechanical Ventilator 30 08/10/18 21:16 64 20 30 08/10/18 21:15 64 20 100 Mechanical Ventilator 30 08/10/18 20:15 68 142/68 1/6/19 20:00 Mechanical Ventilator 08/10/18 20:00 65 08/10/18 20:00 98.8 68 21 146/73 (97) 100 08/10/18 20:00 30 08/10/18 19:52 63 20 30 08/10/18 16:55 64 18 30 08/10/18 16:12 65 08/10/18 16:00 98.4 65 23 151/79 (103) 100 08/10/18 16:00 30 08/10/18 16:00 Mechanical Ventilator 08/10/18 14:14 63 20 30 08/10/18 12:00 Mechanical Ventilator 08/10/18 12:00 30 08/10/18 12:00 97.9 59 20 142/71 (94) 100 08/10/18 11:43 57 Height (Feet): 6 Height (Inches): 2.00 Weight (Pounds): 127 HEENT: status post trach Respiratory/Chest: lungs clear Cardiovascular: normal rate, regular rhythm, no gallop/murmur Abdomen: soft, non tender, other - GT Extremities: no edema Laboratory Tests Test 08/11/18 03:20 White Blood Count 6.5 K/UL (4.8-10.8) Red Blood Count 3.36 M/UL (4.70-6.10) L Hemoglobin 9.6 G/DL (14.2-18.0) L Hematocrit 30.1 % (42.0-52.0) L Mean Corpuscular Volume 90 FL (80-99) Mean Corpuscular Hemoglobin 28.6 PG (27.0-31.0) Mean Corpuscular Hemoglobin Concent 31.9 G/DL (32.0-36.0) L Red Cell Distribution Width 17.9 % (11.6-14.8) H Platelet Count 316 K/UL (150-450) Mean Platelet Volume 4.9 FL (6.5-10.1) L Neutrophils (%) (Auto) 75.4 % (45.0-75.0) H Lymphocytes (%) (Auto) 13.7 % (20.0-45.0) L Monocytes (%) (Auto) 9.2 % (1.0-10.0) Eosinophils (%) (Auto) 1.3 % (0.0-3.0) Basophils (%) (Auto) 0.4 % (0.0-2.0) Sodium Level 145 MMOL/L (136-145) Potassium Level 4.4 MMOL/L (3.5-5.1) Chloride Level 112 MMOL/L (98-107) H Carbon Dioxide Level 27 MMOL/L (21-32) Anion Gap 6 mmol/L (5-15) Blood Urea Nitrogen 30 mg/dL (7-18) H Creatinine 0.4 MG/DL (0.55-1.30) L Estimat Glomerular Filtration Rate mL/min (>60) Glucose Level 100 MG/DL (74-106) Calcium Level 8.6 MG/DL (8.5-10.1) Total Bilirubin 0.5 MG/DL (0.2-1.0) Aspartate Amino Transf (AST/SGOT) 36 U/L (15-37) Alanine Aminotransferase (ALT/SGPT) 8 U/L (12-78) L Alkaline Phosphatase 365 U/L (46-116) H Total Protein 6.1 G/DL (6.4-8.2) L Albumin 1.3 G/DL (3.4-5.0) L Globulin 4.8 g/dL Albumin/Globulin Ratio 0.3 (1.0-2.7) L Current Medications Medications (Trade) Dose Ordered Sig/Iram Route PRN Reason Start Time Stop Time Status Last Admin Dose Admin Acetaminophen (Tylenol) 650 mg Q6H PRN GT Mild Pain/Temp > 101.0 08/03/18 20:30 09/02/18 20:29 08/11/18 03:14 Amikacin Sulfate (Amikin) 500 mg Q12HR@10,22 INH 08/09/18 22:00 08/16/18 21:59 08/11/18 09:50 Amlodipine Besylate (Norvasc) 10 mg DAILY GT 08/04/18 09:00 09/03/18 08:59 08/11/18 09:03 Artificial Tears (Akwa-Tears) 2 drop DAILYPRN PRN BOTH EYES DRY EYES 08/03/18 20:30 09/02/18 20:29 Ascorbic Acid (Vitamin C) 500 mg DAILY GT 08/04/18 09:00 09/03/18 08:59 08/11/18 09:03 Aspirin (ASA) 81 mg DAILY GT 08/04/18 09:00 09/03/18 08:59 08/11/18 09:03 Atorvastatin Calcium (Lipitor) 10 mg BEDTIME GT 08/03/18 21:00 09/02/18 20:59 08/10/18 20:15 Bisacodyl (Dulcolax) 10 mg DAILYPRN PRN RECTAL constipation 08/03/18 20:30 09/02/18 20:29 Clotrimazole (Lotrimin) 1 applic Q12HR TOPIC 08/07/18 21:00 09/06/18 20:59 08/11/18 09:02 Docusate Sodium (Colace) 100 mg DAILY GT 08/04/18 09:00 09/03/18 08:59 08/11/18 09:02 Doxazosin Mesylate (Cardura) 1 mg QHS GT 08/03/18 21:00 09/02/18 20:59 08/10/18 20:14 Heparin Sodium (Porcine) (Heparin 5000 units/ml) 5,000 units EVERY 12 HOURS SUBQ 08/03/18 21:00 09/02/18 20:59 08/11/18 09:05 Isoniazid (Inh) 300 mg DAILY GT 08/04/18 09:00 09/03/18 08:59 08/11/18 09:03 Lansoprazole (Prevacid) 30 mg Q12HR GT 08/03/18 21:00 09/02/18 20:59 08/11/18 09:03 Levetiracetam (Keppra) 750 mg Q12HR GT 08/03/18 21:00 09/02/18 20:59 08/11/18 09:02 Magnesium Hydroxide (Mom) 30 ml DAILYPRN PRN GT CONSTIPATION 08/03/18 20:30 09/02/18 20:29 Meropenem 1 gm/ Sodium Chloride 55 ml @ 110 mls/hr Q8H IVPB 08/05/18 11:30 08/15/18 11:29 08/11/18 10:39 Metoprolol Tartrate (Lopressor) 50 mg EVERY 12 HOURS GT 08/03/18 21:00 09/02/18 20:59 08/11/18 09:03 Multivitamins (Multivitamins W/ Minerals 15ml Liquid) 15 ml DAILY GT 08/04/18 09:00 09/03/18 08:59 08/11/18 09:02 Ondansetron HCl (Zofran) 4 mg Q8H PRN IVP Nausea & Vomiting 08/03/18 20:30 09/02/18 20:29 Pyrazinamide (Pza) 1,000 mg DAILY GT 08/04/18 09:00 09/03/18 08:59 08/11/18 09:04 Pyridoxine HCl (Vitamin B6) 100 mg DAILY GT 08/04/18 09:00 09/03/18 08:59 08/11/18 09:05 Rifampin (Rifadin) 600 mg DAILY GT 08/04/18 09:00 09/03/18 08:59 08/11/18 09:03 Sodium Phosphate (Fleet's Sodium Phosl Enema) 133 ml DAILYPRN PRN RECTAL constipation 08/03/18 20:30 09/02/18 20:29 Terbinafine HCl (LaMISil 30gm) 1 applic EVERY 12 HOURS TOPIC 08/07/18 21:00 09/06/18 18:59 08/11/18 09:02 Vancomycin HCl (Vanco rx to dose) 1 ea DAILY PRN MISC Per rx protocol 08/07/18 11:15 09/06/18 11:14 Vancomycin/Sodium Chloride 250 ml @ 166.667 mls/hr Q12HR@0400,1600 IVPB 08/07/18 16:00 08/16/18 23:59 08/11/18 03:08 Zinc Sulfate (Zinc Sulfate) 220 mg DAILY GT 08/04/18 09:00 09/03/18 08:59 08/11/18 09:06 Sergio Urban MD Aug 11, 2018 11:17"
--- NOTE | 2018-08-11 11:48 | NUR ---
RD ASSESSMENT & RECOMMENDATIONS SEE CARE ACTIVITY FOR COMPLETE ASSESSMENT DAILY ESTIMATED NEEDS: Needs based on Underweight, TF LOAD DISPATCHER LOCAL, Critical care, wounds/49.5kg 30-40 kcals/kg 7416-6824 total kcals 1.5-2 g protein/kg 74-99 g total protein 25-30 mL/kg 5485-0645 total fluid mLs NUTRITION DIAGNOSIS: 1) Swallowing difficulty r/t dysphagia, respiratory status as evidenced by pt is PEG dep, trach/vent dep. . 2) Increased kcal/prot needs R/T underweight status and wound healing as evidenced by low BMI under guidelines, noted w/ mod-severe generalized wasting, pt w/ multiple advanced wounds, refer to WC eval CURRENT TF: Vital AF 1.2 @65ml /hr x20 hrs ENTERAL NUTRITION RECOMMENDATIONS: MAINTAIN Vital AF 1.2 @ 65ml/hr x20 hrs to provide 1300ml, 1560 kcal, 98g prot, 1054ml free H2O - Meets 100% est kcal and protein needs. - HOB over 30 degrees - Rec to increase water flushes (elev Na, BUN trend up) ADDITIONAL RECOMMENDATIONS: 1) Via GT add YOVANI w/ 4-6oz fluid BID for wound care -> Increase Vit C to 500mg BID 2) RECALIBRATE BED SCALE FOR ACCURATE CBW (conflicting wts) + weekly wts given underweight status 3) Check lytes daily, replete as needed 4) Monitor Na on added H2O flushes (now 100ml q4 hrs) Addendum: 08/11/18 at [address]) Rec probiotic daily, pt now on multiple abx
[2018-08-11 12:00] VITALS: BP 160/92
[2018-08-11 16:00] VITALS: BP 153/80
--- NOTE | 2018-08-11 17:59 | NUR ---
CASE MANAGEMENT: REVIEW SI: PNA T 98.1 HR 57 RR 20 BP 160/92 SAT 97% MECH VENT FIO2 30 H/H 9.6/30.1 BUN 30 CR 0.4 IS: AMIKACIN INH Q12HR VANCO IV Q12HR MEROPENEM IV Q8HR NORVASC GT QD ASA GT QD INH GT QD PYRAZINAMIDE GT QD RIFAMPIN GT QD KEPPRA GT Q12HR STEP DOWN UNIT STATUS DCP: PATIENT IS FROM [facility]
--- NOTE | 2018-08-11 18:04 | General Surgery Progress Note ---
General Surgery-Progress Note Subjective Additional Comments no acute events. unchanged. great nursing care and wounds stable. Objective Last 24 Hour Vital Signs Date Time Temp Pulse Resp B/P (MAP) Pulse Ox O2 Delivery O2 Flow Rate FiO2 08/11/18 17:00 60 22 30 08/11/18 16:00 98.1 64 20 153/80 (104) 100 08/11/18 16:00 30 08/11/18 16:00 Mechanical Ventilator 08/11/18 15:37 63 08/11/18 15:11 61 21 30 08/11/18 12:38 59 19 30 08/11/18 12:00 97.7 57 20 160/92 (114) 97 08/11/18 12:00 Mechanical Ventilator 08/11/18 12:00 30 08/11/18 11:34 55 08/11/18 10:43 54 20 30 08/11/18 10:00 54 12 100 Mechanical Ventilator 30 08/11/18 09:51 54 12 100 Mechanical Ventilator 30 08/11/18 09:08 60 20 30 08/11/18 09:03 60 159/83 08/11/18 09:03 60 159/83 08/11/18 08:00 30 08/11/18 08:00 97.7 60 20 159/83 (108) 100 08/11/18 08:00 Mechanical Ventilator 08/11/18 07:34 70 08/11/18 06:39 58 20 30 08/11/18 04:57 58 19 30 08/11/18 04:00 70 08/11/18 04:00 100.4 66 22 148/80 (102) 100 08/11/18 04:00 30 08/11/18 04:00 Mechanical Ventilator 08/11/18 03:44 97.9 08/11/18 03:15 70 20 30 08/11/18 01:25 63 20 30 08/11/18 00:00 63 08/11/18 00:00 99.5 64 23 146/67 (93) 100 08/11/18 00:00 Mechanical Ventilator 08/10/18 22:57 63 16 30 08/10/18 21:33 63 15 100 Mechanical Ventilator 30 08/10/18 21:16 64 20 30 08/10/18 21:15 64 20 100 Mechanical Ventilator 30 08/10/18 20:15 68 142/68 08/10/18 20:00 Mechanical Ventilator 08/10/18 20:00 65 08/10/18 20:00 98.8 68 21 146/73 (97) 100 08/10/18 20:00 30 08/10/18 19:52 63 20 30 I&O Intake and Output 08/10/18 08/11/18 19:00 07:00 Intake Total 1175.000 ml 1375.000 ml Output Total 500 ml 450 ml Balance 675.000 ml 925.000 ml Intake Free Water 300 ml 300 ml IV Total 305.000 ml 360.000 ml Tube Feeding 520 ml 715 ml Other 50 ml Output Urine Total 500 ml 450 ml # Bowel Movements 2 1 Dressing: other Wound: other Drains: other Cardiovascular: RSR Respiratory: decreased breath sounds Abdomen: soft, flat, present bowel sounds Extremities: other Laboratory Tests Test 08/11/18 03:20 White Blood Count 6.5 K/UL (4.8-10.8) Red Blood Count 3.36 M/UL (4.70-6.10) L Hemoglobin 9.6 G/DL (14.2-18.0) L Hematocrit 30.1 % (42.0-52.0) L Mean Corpuscular Volume 90 FL (80-99) Mean Corpuscular Hemoglobin 28.6 PG (27.0-31.0) Mean Corpuscular Hemoglobin Concent 31.9 G/DL (32.0-36.0) L Red Cell Distribution Width 17.9 % (11.6-14.8) H Platelet Count 316 K/UL (150-450) Mean Platelet Volume 4.9 FL (6.5-10.1) L Neutrophils (%) (Auto) 75.4 % (45.0-75.0) H Lymphocytes (%) (Auto) 13.7 % (20.0-45.0) L Monocytes (%) (Auto) 9.2 % (1.0-10.0) Eosinophils (%) (Auto) 1.3 % (0.0-3.0) Basophils (%) (Auto) 0.4 % (0.0-2.0) Sodium Level 145 MMOL/L (136-145) Potassium Level 4.4 MMOL/L (3.5-5.1) Chloride Level 112 MMOL/L (98-107) H Carbon Dioxide Level 27 MMOL/L (21-32) Anion Gap 6 mmol/L (5-15) Blood Urea Nitrogen 30 mg/dL (7-18) H Creatinine 0.4 MG/DL (0.55-1.30) L Estimat Glomerular Filtration Rate mL/min (>60) Glucose Level 100 MG/DL (74-106) Calcium Level 8.6 MG/DL (8.5-10.1) Total Bilirubin 0.5 MG/DL (0.2-1.0) Aspartate Amino Transf (AST/SGOT) 36 U/L (15-37) Alanine Aminotransferase (ALT/SGPT) 8 U/L (12-78) L Alkaline Phosphatase 365 U/L (46-116) H Total Protein 6.1 G/DL (6.4-8.2) L Albumin 1.3 G/DL (3.4-5.0) L Globulin 4.8 g/dL Albumin/Globulin Ratio 0.3 (1.0-2.7) L Plan Problems: (1) Decubitus ulcer Assessment & Plan: Pt presents with multiple pressure injuries present on admission. R trochanteric full thickness pressure injury (L)4.5cm x (W)2.7cm ,wound bed maroon centrally with epithelialized borders.Periwound darker skin tone without induration.Minimal serous exudate noted. Partial thickness wound lumbar spine (L)5cm x (W)9.5cm ,Wound bed viable with additional openings along edges and periwound.Minimal sanguineous exudate noted. Second full thickness pressure injury noted to lumbar sacral area with 100% yellow slough (L)0.5cm x (W)0.7cm.Darker skin tone without induration noted periwound. Full thickness pressure injury R ischium (L)6cm x (W)3cm ,Wound bed granular , edges adherent and flat .Periwound intact. Gross erythema with partial thickness erosion extending from suprapubis, Bilateral groin and scrotum noted. Bilateral heels are dry without fluctuance with scattered dark pigmentations. Tx.Plan Cleanse wound R trochanter with Saline;Apply Hydrogel .Cavilon Skin Barrier periwound .Cover with Optifoam Drsg Daily ad prn. Cleanse wound Lumbar spine with Saline.Apply Hydrogel .Cavilon Skin barrier periwound .Cover with Optifoam drsg Daily and prn. Cleanse wound Lumbar sacral with Saline.Apply TheraHoney gel.Cavilon Skin Barrier Periwound .Cover with Optifoam drsg Daily and prn. Cleanse R ischial wound with Saline.Apply Hydrogel.Cavilon Skin Barrier periwound.Cover with Optifoam drsg Daily and prn. Cavilon Skin Barrier to both heels. Off-load with pillow. Air fluidized mattress. Reposition at least every 2 hours or as tolerated. Zev Candelaria Aug 11, 2018 18:04
--- NOTE | 2018-08-11 19:15 | NUR ---
NURSE NOTES: Received report from Court RN, pt. is in bed obtunded, non-verbal, no signs and symptoms of acute cardiac or respiratory distress noted, pt. appears to be tolerating current vent settings well- AC 12, TV 500, Fio2 at 30% and Peep of 5, Vital 1.5 running at 65cc/hr- no residual noted- via G tube, Manzo intact and draining to gravity, teletypesetter monitor on, pt. comfort measures provided, pt. clean and dry, Rt. hand 22G IV intact and patent, safety measures continued, will continue with plan of care. Addendum: 08/11/18 at 1957 by JHONATAN SEAY RN RN bed alarm on and call light within easy reach, safety brakes on- side rails up x's3.
--- NOTE | 2018-08-11 19:30 | NUR ---
HAND-OFF: Report given to LALA Rider. Patient stable.
[2018-08-11 20:00] VITALS: BP 148/81
[2018-08-11] MEDS: Doxazosin 1mg Tab GT SCH (20:32)
[2018-08-11] MEDS: Metoprolol 25mg tab GT SCH (20:33)
--- NOTE | 2018-08-11 22:20 | Pulmonology Progress Note ---
Assessment/Plan Assessment/Plan respiratory failure tachycardia sepsis leukocytosis anemia severe protein calorie malnutrition trach GT aspiration pneumonia urosepsis ho TB PLAN care noted and reviewed IV antibiotics- WBC now normal ID follow up respiratory care and monitor imaging Ventilatory support without change on AC aspiration precautions optimize for dc SNF meds supportive care suction as needed no wean oxygen therapy monitor labs nutrition as able and monitor albumin levels prognosis guarded proceed with dc planning back to snf impression, plan, and exam edited and reviewed in detail care discussed with RN Subjective ROS Limited/Unobtainable: Yes Allergies: Coded Allergies: No Known Allergies (Unverified , 01/27/17) Subjective cultures and sens noted on vent/poorly responsive overnight events reviewed Objective Last 24 Hour Vital Signs Date Time Temp Pulse Resp B/P (MAP) Pulse Ox O2 Delivery O2 Flow Rate FiO2 08/11/18 21:30 69 21 30 08/11/18 20:33 70 148/81 08/11/18 20:00 66 08/11/18 20:00 97.5 70 22 148/81 (103) 100 08/11/18 20:00 Mechanical Ventilator 08/11/18 20:00 30 08/11/18 19:30 68 24 30 08/11/18 17:00 60 22 30 08/11/18 16:00 98.1 64 20 153/80 (104) 100 08/11/18 16:00 30 08/11/18 16:00 Mechanical Ventilator 08/11/18 15:37 63 08/11/18 15:11 61 21 30 08/11/18 12:38 59 19 30 08/11/18 12:00 97.7 57 20 160/92 (114) 97 08/11/18 12:00 Mechanical Ventilator 08/11/18 12:00 30 08/11/18 11:34 55 08/11/18 10:43 54 20 30 08/11/18 10:00 54 12 100 Mechanical Ventilator 30 08/11/18 09:51 54 12 100 Mechanical Ventilator 30 08/11/18 09:08 60 20 30 08/11/18 09:03 60 159/83 08/11/18 09:03 60 159/83 08/11/18 08:00 30 08/11/18 08:00 97.7 60 20 159/83 (108) 100 08/11/18 08:00 Mechanical Ventilator 08/11/18 07:34 70 08/11/18 06:39 58 20 30 08/11/18 04:57 58 19 30 08/11/18 04:00 70 08/11/18 04:00 100.4 66 22 148/80 (102) 100 08/11/18 04:00 30 08/11/18 04:00 Mechanical Ventilator 08/11/18 03:44 97.9 08/11/18 03:15 70 20 30 08/11/18 01:25 63 20 30 08/11/18 00:00 63 08/11/18 00:00 99.5 64 23 146/67 (93) 100 08/11/18 00:00 Mechanical Ventilator 08/10/18 22:57 63 16 30 Intake and Output 08/10/18 08/11/18 19:00 07:00 Intake Total 1175.000 ml 1440.000 ml Output Total 500 ml 450 ml Balance 675.000 ml 990.000 ml Intake Free Water 300 ml 300 ml IV Total 305.000 ml 360.000 ml Tube Feeding 520 ml 780 ml Other 50 ml Output Urine Total 500 ml 450 ml # Bowel Movements 2 1 Objective WDWN trach reduced breath sounds bilaterally with some rhonchi [id number] without MRG NABS nontender no HSM; GT no CCE contracted nonfocal poorly responsive reviewed and edited Laboratory Tests 08/11/18 03:20: White Blood Count 6.5, Red Blood Count 3.36L, Hemoglobin 9.6L, Hematocrit 30.1L , Mean Corpuscular Volume 90, Mean Corpuscular Hemoglobin 28.6, Mean Corpuscular Hemoglobin Concent 31.9L, Red Cell Distribution Width 17.9H, Platelet Count 316, Mean Platelet Volume 4.9L, Neutrophils (%) (Auto) 75.4H, Lymphocytes (%) (Auto) 13.7L, Monocytes (%) (Auto) 9.2, Eosinophils (%) (Auto) 1.3, Basophils (%) (Auto) 0.4, Sodium Level 145, Potassium Level 4.4, Chloride Level 112H, Carbon Dioxide Level 27, Anion Gap 6, Blood Urea Nitrogen 30H, Creatinine 0.4L, Estimat Glomerular Filtration Rate , Glucose Level 100, Calcium Level 8.6, Total Bilirubin 0.5, Aspartate Amino Transf (AST/SGOT) 36, Alanine Aminotransferase (ALT/SGPT) 8L, Alkaline Phosphatase 365H, Total Protein 6.1L, Albumin 1.3L, Globulin 4.8, Albumin/Globulin Ratio 0.3L Current Medications Medications (Trade) Dose Ordered Sig/Iram Route PRN Reason Start Time Stop Time Status Last Admin Dose Admin Acetaminophen (Tylenol) 650 mg Q6H PRN GT Mild Pain/Temp > 101.0 08/03/18 20:30 09/02/18 20:29 08/11/18 03:14 Amikacin Sulfate (Amikin) 500 mg Q12HR@10,22 INH 08/09/18 22:00 08/16/18 21:59 08/11/18 09:50 Amlodipine Besylate (Norvasc) 10 mg DAILY GT 08/04/18 09:00 09/03/18 08:59 08/11/18 09:03 Artificial Tears (Akwa-Tears) 2 drop DAILYPRN PRN BOTH EYES DRY EYES 08/03/18 20:30 09/02/18 20:29 Ascorbic Acid (Vitamin C) 500 mg DAILY GT 08/04/18 09:00 09/03/18 08:59 08/11/18 09:03 Aspirin (ASA) 81 mg DAILY GT 08/04/18 09:00 09/03/18 08:59 08/11/18 09:03 Atorvastatin Calcium (Lipitor) 10 mg BEDTIME GT 08/03/18 21:00 09/02/18 20:59 08/11/18 20:32 Bisacodyl (Dulcolax) 10 mg DAILYPRN PRN RECTAL constipation 08/03/18 20:30 09/02/18 20:29 Clotrimazole (Lotrimin) 1 applic Q12HR TOPIC 08/07/18 21:00 09/06/18 20:59 08/11/18 20:32 Docusate Sodium (Colace) 100 mg DAILY GT 08/04/18 09:00 09/03/18 08:59 08/11/18 09:02 Doxazosin Mesylate (Cardura) 1 mg QHS GT 08/03/18 21:00 09/02/18 20:59 08/11/18 20:32 Heparin Sodium (Porcine) (Heparin 5000 units/ml) 5,000 units EVERY 12 HOURS SUBQ 08/03/18 21:00 09/02/18 20:59 1/7/19 20:34 Isoniazid (Inh) 300 mg DAILY GT 08/04/18 09:00 09/03/18 08:59 08/11/18 09:03 Lansoprazole (Prevacid) 30 mg Q12HR GT 08/03/18 21:00 09/02/18 20:59 08/11/18 20:32 Levetiracetam (Keppra) 750 mg Q12HR GT 08/03/18 21:00 09/02/18 20:59 08/11/18 20:32 Magnesium Hydroxide (Mom) 30 ml DAILYPRN PRN GT CONSTIPATION 08/03/18 20:30 09/02/18 20:29 Meropenem 1 gm/ Sodium Chloride 55 ml @ 110 mls/hr Q8H IVPB 08/05/18 11:30 08/15/18 11:29 08/11/18 20:31 Metoprolol Tartrate (Lopressor) 25 mg EVERY 12 HOURS GT 08/11/18 21:00 09/02/18 20:59 08/11/18 20:33 Multivitamins (Multivitamins W/ Minerals 15ml Liquid) 15 ml DAILY GT 08/04/18 09:00 09/03/18 08:59 08/11/18 09:02 Ondansetron HCl (Zofran) 4 mg Q8H PRN IVP Nausea & Vomiting 08/03/18 20:30 09/02/18 20:29 Pyrazinamide (Pza) 1,000 mg DAILY GT 08/04/18 09:00 09/03/18 08:59 08/11/18 09:04 Pyridoxine HCl (Vitamin B6) 100 mg DAILY GT 08/04/18 09:00 09/03/18 08:59 08/11/18 09:05 Rifampin (Rifadin) 600 mg DAILY GT 08/04/18 09:00 09/03/18 08:59 08/11/18 09:03 Sodium Phosphate (Fleet's Sodium Phosl Enema) 133 ml DAILYPRN PRN RECTAL constipation 08/03/18 20:30 09/02/18 20:29 Terbinafine HCl (LaMISil 30gm) 1 applic EVERY 12 HOURS TOPIC 08/07/18 21:00 09/06/18 18:59 08/11/18 20:31 Vancomycin HCl (Vanco rx to dose) 1 ea DAILY PRN MISC Per rx protocol 08/07/18 11:15 09/06/18 11:14 Vancomycin/Sodium Chloride 250 ml @ 166.667 mls/hr Q12HR@0400,1600 IVPB 08/07/18 16:00 08/16/18 23:59 08/11/18 15:23 Zinc Sulfate (Zinc Sulfate) 220 mg DAILY GT 08/04/18 09:00 09/03/18 08:59 08/11/18 09:06 Nakul Cisse MD Aug 11, 2018 22:20
[2018-08-12] VITALS: BP 136/69
--- NOTE | 2018-08-12 02:15 | Progress Note ---
DATE: 08/11/2018 CARDIOLOGY PROGRESS NOTE SUBJECTIVE: The patient is poorly responsive on ventilator support. The patient is having low-grade fevers and remains on multiple antimicrobials and continues to have multiple electrolyte abnormalities including high sodium levels despite continued hydration with hypotonic fluids. PHYSICAL EXAMINATION: VITAL SIGNS: T-max 100.4, blood pressure 148/80, pulse 66, and respiratory rate 22. LUNGS: Coarse breath sounds. Rhonchi. Trach secretions are thin. HEART: Regular rhythm and rate. Normal S1, S2. ABDOMEN: Soft. No edema. G-tube site intact. LABORATORY DATA: White count 6.5, hemoglobin 9.6. Sodium 145, potassium 4.4, bicarbonate 27, BUN 30, and creatinine 0.4. Albumin 1.3. IMPRESSION: 1. Fevers are concerning leukocytosis, however, white count is low. Antimicrobials per Infectious Disease rewards consultant. 2. Dehydration with hypernatremia reflecting a free water deficit, is slightly better. We will continue hydration. No diuresis at this time. 3. Severe protein-calorie malnutrition, on G-tube feeding. 4. Hypertensive heart disease and diastolic congestive heart failure compensated, on current cardiovascular regimen, which we will maintain without change. 5. Tracheostomy and respiratory failure on respiratory hygiene. Discharge plan on hold due to fevers. Jones Arauz M.D. DR: ROBYN JOB#: [id number] CC:
[2018-08-12] MEDS: Meropenem 1 GM in NS 55 ML IVPB SCH ×3 (03:05→20:04)
[2018-08-12 04:00] VITALS: BP 143/73
[2018-08-12] MEDS: Vancomycin 750mg/NS 250ml IVPB SCH ×2 (04:23→15:30)
--- NOTE | 2018-08-12 07:00 | NUR ---
HAND-OFF: Report given to Jose REEVES, pt. remians stable and no sign of distress noted. Nurse will f/u on duoneb. Addendum: 08/12/18 at 0713 by JHONATAN SEAY RN RN correction to msg above- no DuoNeb needed for this patient entered in wrong chart.
--- NOTE | 2018-08-12 07:01 | NUR ---
NURSE NOTES: Received patient from LALA Rider. Patient in bed and obtunded. On vent settings of Shiley 6 AC 12 TV 500 Fi02 30 Peep 5. vehicle monitor technician in placed. On gtube feeding Vital AF 1.2 at 65 cc/hour. Manzo catheter in placed. IV site is asymptomatic. Bed in lowest position with side rails up. Will continue to follow plan of care.
[2018-08-12 08:00] VITALS: BP 139/67
[2018-08-12] MEDS: levETIRAcetam 500mg/5ml Liquid GT SCH ×2 (08:36→20:05)
[2018-08-12] MEDS: Pyridoxine 50mg tab GT SCH (08:37)
[2018-08-12] MEDS: Isoniazid 300mg tab GT SCH (08:37)
[2018-08-12] MEDS: Docusate 100mg/10ml Liq GT SCH (08:37)
[2018-08-12] MEDS: Aspirin Baby 81mg GT SCH (08:37)
[2018-08-12] MEDS: Multivitamins W/Minerals 15 ML UDC GT SCH (08:37)
[2018-08-12] MEDS: Ascorbic Acid 500mg tab GT SCH (08:37)
[2018-08-12] MEDS: Zinc Sulfate 220mg cap GT SCH (08:38)
[2018-08-12] MEDS: Metoprolol 25mg tab GT SCH ×2 (08:38→20:05)
[2018-08-12] MEDS: Heparin 5000 units/ml inj SUBQ SCH ×2 (08:39→20:07)
[2018-08-12] MEDS: TERBINAFINE 1% TOPIC SCH ×2 (08:39→20:07)
--- NOTE | 2018-08-12 08:48 | Cardiology Report ---
APPROVED REPORT EXAM: Two-dimensional and M-mode echocardiogram with Doppler and color Doppler. INDICATION ENDOCARDITIS M-Mode DIMENSIONS IVSd1.4 (0.7-1.1cm)Left Atrium (MM)2.6 (1.6-4.0cm) LVDd4.3 (3.5-5.6cm)Aortic Root4.1 (2.0-3.7cm) PWd1.5 (0.7-1.1cm)Aortic Cusp Exc.1.5 (1.5-2.0cm) IVSs1.6 cm LVDs2.8 (2.5-4.0cm) PWs1.9 cm Technically difficult study due to poor acoustical windows. Normal left ventricular chamber size, systolic function and wall motion to extent visualized. Left ventricular ejection fraction estimated to be 55-60 %. Study quality precludes accurate assessment of regional wall motion. No evidence of left ventricular hypertrophy. No evidence of pericardial effusion. All other cardiac chamber sizes are within normal limits. Mildly focal aortic valve sclerosis with reduced cusp excursion. Thickened mitral valve leaflets with normal excursion. Mitral annulus and aortic root calcification. Normal pulmonic valve structure. Normal tricuspid valve structure. IVC dilated at 2.1 cm with slightly collapse suggestive of increased RA pressure. A color flow and spectral Doppler study was performed and revealed: No aortic regurgitation. Trace mitral regurgitation. Mitral diastolic velocities suggest reduced left ventricular relaxation c/w mild LV diastolic dysfunction (Grade I ). Mild, tricuspid regurgitation. Tricuspid systolic velocities suggests peak right ventricular systolic pressure of 39 mmHg,consistent with mild pulmonary hypertension . No Pulmonic regurgitation present.
--- NOTE | 2018-08-12 09:39 | General Progress Note ---
Assessment/Plan Problem List: (1) Toxic metabolic encephalopathy ICD Codes: G92 - Toxic encephalopathy SNOMED: 581654635 (2) Status epilepticus ICD Codes: G40.901 - Epilepsy, unspecified, not intractable, with status epilepticus SNOMED: 374787831 (3) Hyperlipidemia ICD Codes: E78.5 - Hyperlipidemia, unspecified SNOMED: 16655504 (4) Dementia ICD Codes: F03.90 - Unspecified dementia without behavioral disturbance SNOMED: 28198080 (5) Aspiration pneumonia ICD Codes: J69.0 - Pneumonitis due to inhalation of food and vomit SNOMED: 753588598 (6) Abnormal LFTs ICD Codes: R94.5 - Abnormal results of liver function studies SNOMED: 686446014 (7) Aspiration pneumonia ICD Codes: J69.0 - Pneumonitis due to inhalation of food and vomit SNOMED: 230373136 (8) Encephalopathy ICD Codes: G93.40 - Encephalopathy, unspecified SNOMED: 93119319 (9) Sepsis ICD Codes: A41.9 - Sepsis, unspecified organism SNOMED: 01926079 (10) UTI (urinary tract infection), bacterial ICD Codes: N39.0 - Urinary tract infection, site not specified; A49.9 - Bacterial infection, unspecified SNOMED: 859804339 Status: stable, progressing Assessment/Plan cont iv abx per ID tylenol for fevers vent support picc line resp rx tb meds gt feeds/water flush monitor labs/na wound care ID follow regarding fevers ?dc planning Subjective ROS Limited/Unobtainable: Yes Constitutional: Reports: malaise, weakness HEENT: Reports: no symptoms Cardiovascular: Reports: no symptoms Respiratory: Reports: no symptoms Gastrointestinal/Abdominal: Reports: difficulty swallowing Genitourinary: Reports: no symptoms Neurologic/Psychiatric: Reports: pre-existing deficit Endocrine: Reports: no symptoms Hematologic/Lymphatic: Reports: no symptoms Allergies: Coded Allergies: No Known Allergies (Unverified , 01/27/17) All Systems: reviewed and negative except above Subjective no events. stable on the vent. poorly responsive. fevers better. Objective Last 24 Hour Vital Signs Date Time Temp Pulse Resp B/P (MAP) Pulse Ox O2 Delivery O2 Flow Rate FiO2 08/12/18 09:04 61 22 30 08/12/18 08:38 66 139/67 08/12/18 08:37 66 139/67 08/12/18 08:00 Mechanical Ventilator 08/12/18 08:00 30 08/12/18 08:00 98.2 66 20 139/67 (91) 100 08/12/18 07:55 65 08/12/18 06:40 62 20 30 08/12/18 04:55 61 22 30 08/12/18 04:00 Mechanical Ventilator 08/12/18 04:00 30 08/12/18 04:00 63 08/12/18 04:00 98.2 65 24 143/73 (96) 99 08/12/18 03:26 63 22 30 08/12/18 01:30 79 20 30 08/12/18 00:00 61 08/12/18 00:00 Mechanical Ventilator 08/12/18 00:00 30 08/12/18 00:00 97.7 63 22 136/69 (91) 100 08/12/18 00:00 Mechanical Ventilator 08/11/18 23:10 79 21 100 Mechanical Ventilator 30 08/11/18 23:00 77 22 100 Mechanical Ventilator 30 08/11/18 23:00 77 22 30 08/11/18 21:30 69 21 30 08/11/18 20:33 70 148/81 08/11/18 20:00 66 08/11/18 20:00 97.5 70 22 148/81 (103) 100 08/11/18 20:00 Mechanical Ventilator 08/11/18 20:00 30 08/11/18 19:30 68 24 30 08/11/18 17:00 60 22 30 08/11/18 16:00 98.1 64 20 153/80 (104) 100 08/11/18 16:00 30 08/11/18 16:00 Mechanical Ventilator 08/11/18 15:37 63 08/11/18 15:11 61 21 30 08/11/18 12:38 59 19 30 08/11/18 12:00 97.7 57 20 160/92 (114) 97 08/11/18 12:00 Mechanical Ventilator 08/11/18 12:00 30 08/11/18 11:34 55 08/11/18 10:43 54 20 30 08/11/18 10:00 54 12 100 Mechanical Ventilator 30 08/11/18 09:51 54 12 100 Mechanical Ventilator 30 Intake and Output 08/11/18 08/12/18 18:59 06:59 Intake Total 1125.000 ml 1633.2 ml Output Total 750 ml 550 ml Balance 375.000 ml 1083.2 ml Intake Free Water 300 ml 300 ml IV Total 305.000 ml 553.2 ml Tube Feeding 520 ml 780 ml Output Urine Total 750 ml 550 ml # Bowel Movements 2 4 Height (Feet): 6 Height (Inches): 2.00 Weight (Pounds): 127 Objective General Appearance: WD/WN, lethargic, confused Neck: supple Cardiovascular: normal peripheral pulses Respiratory/Chest: chest wall non-tender, lungs clear, normal breath sounds, no respiratory distress, no accessory muscle use Abdomen: normal bowel sounds, non tender, soft, no organomegaly Edema: no edema noted Arm (L), no edema noted Arm (R), no edema noted Leg (L), no edema noted Leg (R), no edema noted Pedal (L), no edema noted Pedal (R), no edema noted Generalized Neurologic: disoriented, unresponsive, aphasia Skin: hyperpigmented dystrophic nails Jarrod Vásquez MD Aug 12, 2018 09:39
[2018-08-12] MEDS: Amikacin for Inhalation 2ML INH SCH ×2 (09:55→22:24)
[2018-08-12] MEDS ORDERED: Heparin 2000 units/Ns 1000ml INJ PRN (10:40)
[2018-08-12] MEDS ORDERED: Lidocaine 1% Plain 30 ml INJ PRN (10:40)
--- NOTE | 2018-08-12 11:08 | Infectious Diseases Prog Note ---
"Assessment/Plan Assessment/Plan antibiotics : vancomycin iv, meropenem, inhaled amikacin, isoniazid, rifampin, pyrazinamide, pyridoxine A 1. enterococcus | e.coli sepsis 2. pseudomonas pneumonia 3. e.coli UTI 4. pulmonary TB 5. leucocytosis improving 6. respiratory failure P 1. continue vancomycin iv 18 more days 2. continue meropenem 2 more days 3. continue inhaled amikacin 3 more days 4. continue isoniazid, rifampin, pyrazinamide, pyridoxine 5. will follow up cultures Subjective ROS Limited/Unobtainable: Yes Allergies: Coded Allergies: No Known Allergies (Unverified , 01/27/17) Objective Vital Signs Last 24 Hour Vital Signs Date Time Temp Pulse Resp B/P (MAP) Pulse Ox O2 Delivery O2 Flow Rate FiO2 08/12/18 10:10 58 18 100 Mechanical Ventilator 30 08/12/18 09:58 60 14 100 Mechanical Ventilator 30 08/12/18 09:04 61 22 30 08/12/18 08:38 66 139/67 08/12/18 08:37 66 139/67 08/12/18 08:00 Mechanical Ventilator 08/12/18 08:00 30 08/12/18 08:00 98.2 66 20 139/67 (91) 100 08/12/18 07:55 65 08/12/18 06:40 62 20 30 08/12/18 04:55 61 22 30 08/12/18 04:00 Mechanical Ventilator 08/12/18 04:00 30 08/12/18 04:00 63 08/12/18 04:00 98.2 65 24 143/73 (96) 99 08/12/18 03:26 63 22 30 08/12/18 01:30 79 20 30 08/12/18 00:00 61 08/12/18 00:00 Mechanical Ventilator 08/12/18 00:00 30 08/12/18 00:00 97.7 63 22 136/69 (91) 100 08/12/18 00:00 Mechanical Ventilator 08/11/18 23:10 79 21 100 Mechanical Ventilator 30 08/11/18 23:00 77 22 100 Mechanical Ventilator 30 08/11/18 23:00 77 22 30 08/11/18 21:30 69 21 30 08/11/18 20:33 70 148/81 08/11/18 20:00 66 08/11/18 20:00 97.5 70 22 148/81 (103) 100 08/11/18 20:00 Mechanical Ventilator 08/11/18 20:00 30 08/11/18 19:30 68 24 30 08/11/18 17:00 60 22 30 08/11/18 16:00 98.1 64 20 153/80 (104) 100 08/11/18 16:00 30 08/11/18 16:00 Mechanical Ventilator 08/11/18 15:37 63 08/11/18 15:11 61 21 30 08/11/18 12:38 59 19 30 08/11/18 12:00 97.7 57 20 160/92 (114) 97 08/11/18 12:00 Mechanical Ventilator 08/11/18 12:00 30 08/11/18 11:34 55 Height (Feet): 6 Height (Inches): 2.00 Weight (Pounds): 127 HEENT: status post trach Respiratory/Chest: lungs clear Cardiovascular: normal rate, regular rhythm, no gallop/murmur Abdomen: soft, non tender, other - GT Extremities: no edema Current Medications Medications (Trade) Dose Ordered Sig/Iram Route PRN Reason Start Time Stop Time Status Last Admin Dose Admin Acetaminophen (Tylenol) 650 mg Q6H PRN GT Mild Pain/Temp > 101.0 08/03/18 20:30 09/02/18 20:29 08/11/18 03:14 Amikacin Sulfate (Amikin) 500 mg Q12HR@10,22 INH 08/09/18 22:00 08/16/18 21:59 08/12/18 09:55 Amlodipine Besylate (Norvasc) 10 mg DAILY GT 08/04/18 09:00 09/03/18 08:59 08/12/18 08:37 Artificial Tears (Akwa-Tears) 2 drop DAILYPRN PRN BOTH EYES DRY EYES 08/03/18 20:30 09/02/18 20:29 Ascorbic Acid (Vitamin C) 500 mg DAILY GT 08/04/18 09:00 09/03/18 08:59 08/12/18 08:37 Aspirin (ASA) 81 mg DAILY GT 08/04/18 09:00 09/03/18 08:59 08/12/18 08:37 Atorvastatin Calcium (Lipitor) 10 mg BEDTIME GT 08/03/18 21:00 09/02/18 20:59 08/11/18 20:32 Bisacodyl (Dulcolax) 10 mg DAILYPRN PRN RECTAL constipation 08/03/18 20:30 09/02/18 20:29 Chlorhexidine Gluconate (Letha-Hex 2%) 1 applic DAILY@2000 TOPIC 08/12/18 20:00 09/11/18 19:59 Clotrimazole (Lotrimin) 1 applic Q12HR TOPIC 08/07/18 21:00 09/06/18 20:59 08/12/18 08:39 Docusate Sodium (Colace) 100 mg DAILY GT 08/04/18 09:00 09/03/18 08:59 08/12/18 08:37 Doxazosin Mesylate (Cardura) 1 mg QHS GT 08/03/18 21:00 09/02/18 20:59 08/11/18 20:32 Heparin Sodium (Porcine) (Heparin 5000 units/ml) 5,000 units EVERY 12 HOURS SUBQ 08/03/18 21:00 09/02/18 20:59 08/12/18 08:39 Heparin Sodium/ Sodium Chloride (Heparin 2000 units/Ns 1000ml premix) 2,000 unit ONCE PRN INJ PICC 08/12/18 10:40 08/13/18 23:59 Isoniazid (Inh) 300 mg DAILY GT 08/04/18 09:00 09/03/18 08:59 08/12/18 08:37 Lansoprazole (Prevacid) 30 mg Q12HR GT 08/03/18 21:00 09/02/18 20:59 08/12/18 08:37 Levetiracetam (Keppra) 750 mg Q12HR GT 08/03/18 21:00 09/02/18 20:59 08/12/18 08:36 Lidocaine HCl (Xylocaine 1% 30ml) 30 ml ONCE PRN INJ PICC 08/12/18 10:40 08/13/18 23:59 Magnesium Hydroxide (Mom) 30 ml DAILYPRN PRN GT CONSTIPATION 08/03/18 20:30 09/02/18 20:29 Meropenem 1 gm/ Sodium Chloride 55 ml @ 110 mls/hr Q8H IVPB 08/05/18 11:30 08/15/18 11:29 08/12/18 03:05 Metoprolol Tartrate (Lopressor) 25 mg EVERY 12 HOURS GT 08/11/18 21:00 09/02/18 20:59 08/12/18 08:38 Multivitamins (Multivitamins W/ Minerals 15ml Liquid) 15 ml DAILY GT 08/04/18 09:00 09/03/18 08:59 08/12/18 08:37 Ondansetron HCl (Zofran) 4 mg Q8H PRN IVP Nausea & Vomiting 08/03/18 20:30 09/02/18 20:29 Pyrazinamide (Pza) 1,000 mg DAILY GT 08/04/18 09:00 09/03/18 08:59 08/12/18 08:38 Pyridoxine HCl (Vitamin B6) 100 mg DAILY GT 08/04/18 09:00 09/03/18 08:59 08/12/18 08:37 Rifampin (Rifadin) 600 mg DAILY GT 08/04/18 09:00 09/03/18 08:59 08/12/18 08:38 Sodium Phosphate (Fleet's Sodium Phosl Enema) 133 ml DAILYPRN PRN RECTAL constipation 08/03/18 20:30 09/02/18 20:29 Terbinafine HCl (LaMISil 30gm) 1 applic EVERY 12 HOURS TOPIC 08/07/18 21:00 09/06/18 18:59 08/12/18 08:39 Vancomycin HCl (Vanco rx to dose) 1 ea DAILY PRN MISC Per rx protocol 08/07/18 11:15 09/06/18 11:14 Vancomycin/Sodium Chloride 250 ml @ 166.667 mls/hr Q12HR@0400,1600 IVPB 08/07/18 16:00 08/16/18 23:59 08/12/18 04:23 Zinc Sulfate (Zinc Sulfate) 220 mg DAILY GT 08/04/18 09:00 09/03/18 08:59 08/12/18 08:38 Sergio Urban MD Aug 12, 2018 11:08"
[2018-08-12 12:00] VITALS: BP 140/73
[2018-08-12 16:00] VITALS: BP 138/71
--- NOTE | 2018-08-12 16:17 | Diagnostic Imaging Report ---
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 The left upper extremity was prepped with alcohol. All elements of maximal sterile barrier technique were followed including usage of a cap, mask, sterile gown, sterile gloves, hand hygiene and a large sterile sheet. Sonographic evaluation of the upper extremity was performed demonstrating a patent and compressible basilic vein. Access was obtained under real-time ultrasound guidance (with utilization of sterile gel and sterile probe cover) and digital image was saved and archived. An .018 wire was introduced. Needle exchanged for a 5 Czech peel-away sheath. Measurements were obtained. A 5 Czech dual-lumen Power PICC line catheter was cut to 47 and introduced over the wire. Peel-away sheath and wire were removed.Catheter was secured to the skin using 2-0 Prolene suture. Both ports aspirate and flush easily. Post procedure chest x-ray demonstrates good position of the PICC line catheter within the left innominate vein/SVC junction. Impression: Successful placement of an upper extremity PICC line catheter
--- NOTE | 2018-08-12 19:10 | NUR ---
HAND-OFF: Report given to LALA Rider. Patient stable and in no distress.
--- NOTE | 2018-08-12 19:16 | NUR ---
NURSE NOTES: Received report from Jose RN, pt. is in bed obtunded, non-verbal, Family at bedside, no signs and symptoms of acute cardiac or respiratory distress noted, pt. appears to be tolerating current vent settings well- AC 12, TV 500, Fio2 at 30% and Peep of 5, Vital 1.5 running at 65cc/hr- no residual noted- via G tube, bed in lowest position and call light within easy reach, side rails up x's3 and safety brakes engaged, Manzo intact and draining to gravity, laundry helper on, pt. comfort measures provided, pt. clean and dry, ARMIN PICC intact and patent- TKO, safety measures continued, will continue with plan of care.
--- NOTE | 2018-08-12 19:47 | Pulmonology Progress Note ---
Assessment/Plan Assessment/Plan respiratory failure tachycardia sepsis leukocytosis anemia severe protein calorie malnutrition trach GT aspiration pneumonia urosepsis ho TB PLAN care noted and reviewed IV antibiotics- reviewed WBC noted ID follow up respiratory care and monitor imaging Ventilatory support without change on AC aspiration precautions optimize for dc SNF meds supportive care suction as needed no wean oxygen therapy monitor labs nutrition as able and monitor albumin levels prognosis overall poor proceed with dc planning back to snf per primary impression, plan, and exam edited and reviewed in detail care discussed with RN Subjective ROS Limited/Unobtainable: Yes Allergies: Coded Allergies: No Known Allergies (Unverified , 01/27/17) Subjective cultures and sens noted on vent/poorly responsive overnight events reviewed Objective Last 24 Hour Vital Signs Date Time Temp Pulse Resp B/P (MAP) Pulse Ox O2 Delivery O2 Flow Rate FiO2 08/12/18 19:30 59 18 30 08/12/18 17:33 64 15 30 08/12/18 16:00 97.7 66 17 138/71 (93) 100 08/12/18 16:00 Mechanical Ventilator 08/12/18 16:00 30 08/12/18 15:27 65 08/12/18 15:16 66 19 30 08/12/18 13:03 62 20 30 08/12/18 12:00 30 08/12/18 12:00 97.5 62 17 140/73 (95) 100 08/12/18 12:00 Mechanical Ventilator 08/12/18 11:40 58 08/12/18 11:27 59 20 30 08/12/18 10:10 58 18 100 Mechanical Ventilator 30 08/12/18 09:58 60 14 100 Mechanical Ventilator 30 08/12/18 09:04 61 22 30 08/12/18 08:38 66 139/67 08/12/18 08:37 66 139/67 08/12/18 08:00 Mechanical Ventilator 08/12/18 08:00 30 08/12/18 08:00 98.2 66 20 139/67 (91) 100 08/12/18 07:55 65 08/12/18 06:40 62 20 30 08/12/18 04:55 61 22 30 08/12/18 04:00 Mechanical Ventilator 08/12/18 04:00 30 08/12/18 04:00 63 08/12/18 04:00 98.2 65 24 143/73 (96) 99 08/12/18 03:26 63 22 30 08/12/18 01:30 79 20 30 08/12/18 00:00 61 08/12/18 00:00 Mechanical Ventilator 08/12/18 00:00 30 08/12/18 00:00 97.7 63 22 136/69 (91) 100 08/12/18 00:00 Mechanical Ventilator 08/11/18 23:10 79 21 100 Mechanical Ventilator 30 08/11/18 23:00 77 22 100 Mechanical Ventilator 30 08/11/18 23:00 77 22 30 08/11/18 21:30 69 21 30 08/11/18 20:33 70 148/81 08/11/18 20:00 66 08/11/18 20:00 97.5 70 22 148/81 (103) 100 08/11/18 20:00 Mechanical Ventilator 08/11/18 20:00 30 Intake and Output 08/11/18 08/12/18 19:00 07:00 Intake Total 1125.000 ml 1698.2 ml Output Total 750 ml 550 ml Balance 375.000 ml 1148.2 ml Intake Free Water 300 ml 300 ml IV Total 305.000 ml 553.2 ml Tube Feeding 520 ml 845 ml Output Urine Total 750 ml 550 ml # Bowel Movements 2 4 Objective WDWN trach reduced breath sounds bilaterally with some rhonchi [id number] without MRG NABS nontender no HSM; GT no CCE contracted nonfocal poorly responsive reviewed and edited Current Medications Medications (Trade) Dose Ordered Sig/Iram Route PRN Reason Start Time Stop Time Status Last Admin Dose Admin Acetaminophen (Tylenol) 650 mg Q6H PRN GT Mild Pain/Temp > 101.0 08/03/18 20:30 09/02/18 20:29 08/11/18 03:14 Amikacin Sulfate (Amikin) 500 mg Q12HR@10,22 INH 08/09/18 22:00 08/16/18 21:59 08/12/18 09:55 Amlodipine Besylate (Norvasc) 10 mg DAILY GT 08/04/18 09:00 09/03/18 08:59 08/12/18 08:37 Artificial Tears (Akwa-Tears) 2 drop DAILYPRN PRN BOTH EYES DRY EYES 08/03/18 20:30 09/02/18 20:29 Ascorbic Acid (Vitamin C) 500 mg DAILY GT 08/04/18 09:00 09/03/18 08:59 08/12/18 08:37 Aspirin (ASA) 81 mg DAILY GT 08/04/18 09:00 09/03/18 08:59 08/12/18 08:37 Atorvastatin Calcium (Lipitor) 10 mg BEDTIME GT 08/03/18 21:00 09/02/18 20:59 08/11/18 20:32 Bisacodyl (Dulcolax) 10 mg DAILYPRN PRN RECTAL constipation 08/03/18 20:30 09/02/18 20:29 Chlorhexidine Gluconate (Letha-Hex 2%) 1 applic DAILY@1999 TOPIC 08/12/18 20:00 09/11/18 19:59 Clotrimazole (Lotrimin) 1 applic Q12HR TOPIC 08/07/18 21:00 09/06/18 20:59 08/12/18 08:39 Docusate Sodium (Colace) 100 mg DAILY GT 08/04/18 09:00 09/03/18 08:59 08/12/18 08:37 Doxazosin Mesylate (Cardura) 1 mg QHS GT 08/03/18 21:00 09/02/18 20:59 08/11/18 20:32 Heparin Sodium (Porcine) (Heparin 5000 units/ml) 5,000 units EVERY 12 HOURS SUBQ 08/03/18 21:00 09/02/18 20:59 08/12/18 08:39 Heparin Sodium/ Sodium Chloride (Heparin 2000 units/Ns 1000ml premix) 2,000 unit ONCE PRN INJ PICC 08/12/18 10:40 08/13/18 23:59 Isoniazid (Inh) 300 mg DAILY GT 08/04/18 09:00 09/03/18 08:59 08/12/18 08:37 Lansoprazole (Prevacid) 30 mg Q12HR GT 08/03/18 21:00 09/02/18 20:59 08/12/18 08:37 Levetiracetam (Keppra) 750 mg Q12HR GT 08/03/18 21:00 09/02/18 20:59 08/12/18 08:36 Lidocaine HCl (Xylocaine 1% 30ml) 30 ml ONCE PRN INJ PICC 08/12/18 10:40 08/13/18 23:59 Magnesium Hydroxide (Mom) 30 ml DAILYPRN PRN GT CONSTIPATION 08/03/18 20:30 09/02/18 20:29 Meropenem 1 gm/ Sodium Chloride 55 ml @ 110 mls/hr Q8H IVPB 08/05/18 11:30 08/15/18 11:29 08/12/18 11:18 Metoprolol Tartrate (Lopressor) 25 mg EVERY 12 HOURS GT 08/11/18 21:00 09/02/18 20:59 08/12/18 08:38 Multivitamins (Multivitamins W/ Minerals 15ml Liquid) 15 ml DAILY GT 08/04/18 09:00 09/03/18 08:59 08/12/18 08:37 Ondansetron HCl (Zofran) 4 mg Q8H PRN IVP Nausea & Vomiting 08/03/18 20:30 09/02/18 20:29 Pyrazinamide (Pza) 1,000 mg DAILY GT 08/04/18 09:00 09/03/18 08:59 08/12/18 08:38 Pyridoxine HCl (Vitamin B6) 100 mg DAILY GT 08/04/18 09:00 09/03/18 08:59 08/12/18 08:37 Rifampin (Rifadin) 600 mg DAILY GT 08/04/18 09:00 09/03/18 08:59 08/12/18 08:38 Sodium Phosphate (Fleet's Sodium Phosl Enema) 133 ml DAILYPRN PRN RECTAL constipation 08/03/18 20:30 09/02/18 20:29 Terbinafine HCl (LaMISil 30gm) 1 applic EVERY 12 HOURS TOPIC 08/07/18 21:00 09/06/18 18:59 08/12/18 08:39 Vancomycin HCl (Vanco rx to dose) 1 ea DAILY PRN MISC Per rx protocol 08/07/18 11:15 09/06/18 11:14 Vancomycin/Sodium Chloride 250 ml @ 166.667 mls/hr Q12HR@0400,1600 IVPB 08/07/18 16:00 08/16/18 23:59 08/12/18 15:30 Zinc Sulfate (Zinc Sulfate) 220 mg DAILY GT 08/04/18 09:00 09/03/18 08:59 08/12/18 08:38 Nakul Cisse MD Aug 12, 2018 19:47
[2018-08-12 20:00] VITALS: BP 144/75
[2018-08-12] MEDS ORDERED: Dyna-Hex 2% Top Sol 2oz TOPIC SCH (20:00)
[2018-08-12] MEDS: Doxazosin 1mg Tab GT SCH (20:04)
[2018-08-13] VITALS: BP 142/71
[2018-08-13] MEDS: Meropenem 1 GM in NS 55 ML IVPB SCH ×2 (02:54→12:41)
--- NOTE | 2018-08-13 03:15 | Progress Note ---
DATE: 08/12/2018 CARDIOLOGY PROGRESS NOTE SUBJECTIVE: The patient has defervesced. He remains on ventilator support. No new events. OBJECTIVE: VITAL SIGNS: Blood pressure 138/71, pulse 66, and respirations 17. LUNGS: Coarse breath sounds. HEART: Regular rhythm and rate. Normal S1, S2. ABDOMEN: Soft. G-tube intact. EXTREMITIES: No edema. LABORATORY DATA: Labs pending. IMPRESSION: 1. Clinically rehydrated with free water deficit corrected. 2. Euvolemic, still with severe protein-calorie malnutrition and potential for third spacing. 3. Overall clinically compensated with respect to diastolic congestive heart failure with controlled blood pressure. PLAN: 1. No change in cardiovascular regimen. 2. Stable for subacute facility from cardiovascular standpoint. Jones Arauz M.D. DR: ROBYN JOB#: [id number] CC:
[2018-08-13] MEDS: Vancomycin 750mg/NS 250ml IVPB SCH ×2 (03:48→16:43)
[2018-08-13 04:00] VITALS: BP 143/70
--- NOTE | 2018-08-13 07:00 | NUR ---
RESPIRATORY NOTE: Pt received on mechanical ventilator: 500, 12, 30%, +5. Patient is a trach patient with Shiley 6 spare trach bedside. All alarms are set and audible, ambu bag bedside. Will continue to monitor patient.
--- NOTE | 2018-08-13 07:21 | NUR ---
HAND-OFF: Report given to David RN, pt. remains stable and no signs or symptoms of distress noted.
--- NOTE | 2018-08-13 07:22 | NUR ---
NURSE NOTES: Received patient from LALA Rider. Patient obtunded, trach to vent, AC-12, TV-500, FiO2- 30%, PEEP- 5, saturating at 99%. Oral care and suctioning provided. With PEG tube running Vital AF at 65 ml/hr, no residual, HOB elevated for aspiration precaution. Left upper arm PICC running TKO, asymptomatic. Bilateral upper extremity contractures noted. Manzo catheter draining to yellow urine. Wound dressing intact. Sinus Rhythm on the monitor. Will continue plan of care. DC planning for patient.
[2018-08-13 08:00] VITALS: BP 142/72
[2018-08-13] MEDS: levETIRAcetam 500mg/5ml Liquid GT SCH (08:14)
[2018-08-13] MEDS: Multivitamins W/Minerals 15 ML UDC GT SCH (08:14)
[2018-08-13] MEDS: Docusate 100mg/10ml Liq GT SCH (08:15)
[2018-08-13] MEDS: Metoprolol 25mg tab GT SCH (08:15)
[2018-08-13] MEDS: Ascorbic Acid 500mg tab GT SCH (08:15)
[2018-08-13] MEDS: Isoniazid 300mg tab GT SCH (08:15)
[2018-08-13] MEDS: Pyridoxine 50mg tab GT SCH (08:16)
[2018-08-13] MEDS: Zinc Sulfate 220mg cap GT SCH (08:17)
[2018-08-13] MEDS: Aspirin Baby 81mg GT SCH (08:17)
[2018-08-13] MEDS: TERBINAFINE 1% TOPIC SCH (08:18)
[2018-08-13] MEDS: Heparin 5000 units/ml inj SUBQ SCH (08:20)
[2018-08-13] MEDS ORDERED: VANCOMYCIN750 MG/150 IVPB (08:36)
[2018-08-13] MEDS ORDERED: MEROPENEM1 GM IVPB (08:36)
[2018-08-13] MEDS ORDERED: AMIKIN500 MG/2 M INH (08:36)
[2018-08-13] MEDS: Amikacin for Inhalation 2ML INH SCH (10:55)
[2018-08-13 12:00] VITALS: BP 148/73
--- NOTE | 2018-08-13 12:00 | NUR ---
NURSE NOTES: Patient remains stable. Suctioning provided. Heels offloaded.
--- NOTE | 2018-08-13 12:49 | NUR ---
CASE MANAGEMENT: REVIEW SI: PNA T 97.7 HR 61 RR 25 BP 148/73 SAT 99% MECH VENT FIO2 30 IS: AMIKACIN INH Q12HR VANCO IV Q12HR MEROPENEM IV Q8HR NORVASC GT QD ASA GT QD INH GT QD PYRAZINAMIDE GT QD RIFAMPIN GT QD KEPPRA GT Q12HR STEP DOWN UNIT STATUS DCP: PATIENT IS FROM [facility]. AWAITING PUBLIC HEALTH CLEARANCE.
--- NOTE | 2018-08-13 13:20 | Infectious Diseases Prog Note ---
Assessment/Plan Assessment/Plan A; E. Coli & Enterococcus sepsis E. 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 P: Continue IV meropenem 1 day, IV Vancomycin x 17 days & Amikacin inhaler X 2days Continue TB medication Infectious control evaluation for tapering or stopping TB medications Subjective ROS Limited/Unobtainable: Yes Allergies: Coded Allergies: No Known Allergies (Unverified , 01/27/17) Objective Vital Signs Last 24 Hour Vital Signs Date Time Temp Pulse Resp B/P (MAP) Pulse Ox O2 Delivery O2 Flow Rate FiO2 08/13/18 12:59 64 23 Mechanical Ventilator 30 08/13/18 12:58 64 23 30 08/13/18 12:00 Mechanical Ventilator 08/13/18 12:00 97.7 61 25 148/73 (98) 97 08/13/18 12:00 30 08/13/18 10:58 64 14 100 Mechanical Ventilator 30 08/13/18 10:49 61 24 99 Mechanical Ventilator 30 08/13/18 10:48 61 25 30 08/13/18 09:06 65 25 30 08/13/18 08:15 65 142/72 08/13/18 08:15 65 142/72 08/13/18 08:00 62 08/13/18 08:00 97.5 65 26 142/72 (95) 99 08/13/18 08:00 30 08/13/18 08:00 Mechanical Ventilator 08/13/18 06:55 62 28 30 08/13/18 05:25 60 17 30 08/13/18 04:00 Mechanical Ventilator 08/13/18 04:00 30 08/13/18 04:00 65 08/13/18 04:00 97.0 62 24 143/70 (94) 99 08/13/18 02:58 66 23 30 08/13/18 00:41 62 17 30 08/13/18 00:00 97.7 63 20 142/71 (94) 100 08/13/18 00:00 60 08/13/18 00:00 Mechanical Ventilator 08/12/18 22:30 65 18 30 08/12/18 22:26 65 22 100 Mechanical Ventilator 30 08/12/18 22:14 62 22 100 Mechanical Ventilator 30 08/12/18 20:51 60 16 30 08/12/18 20:05 70 144/75 08/12/18 20:00 Mechanical Ventilator 08/12/18 20:00 98.1 62 21 144/75 (98) 100 08/12/18 20:00 30 08/12/18 20:00 61 08/12/18 19:30 59 18 30 08/12/18 17:33 64 15 30 08/12/18 16:00 97.7 66 17 138/71 (93) 100 08/12/18 16:00 Mechanical Ventilator 08/12/18 16:00 30 08/12/18 15:27 65 08/12/18 15:16 66 19 30 Height (Feet): 6 Height (Inches): 2.00 Weight (Pounds): 167 HEENT: status post trach Respiratory/Chest: lungs clear, other - on ventilator Cardiovascular: normal rate, other - left arm PICC line Abdomen: soft, non tender, other - GT feeding Extremities: no edema Neurologic/Psychiatric: aphasia Current Medications Medications (Trade) Dose Ordered Sig/Iram Route PRN Reason Start Time Stop Time Status Last Admin Dose Admin Acetaminophen (Tylenol) 650 mg Q6H PRN GT Mild Pain/Temp > 101.0 08/03/18 20:30 09/02/18 20:29 08/11/18 03:14 Amikacin Sulfate (Amikin) 500 mg Q12HR@10,22 INH 08/09/18 22:00 08/16/18 21:59 08/13/18 10:55 Amlodipine Besylate (Norvasc) 10 mg DAILY GT 08/04/18 09:00 09/03/18 08:59 08/13/18 08:15 Artificial Tears (Akwa-Tears) 2 drop DAILYPRN PRN BOTH EYES DRY EYES 08/03/18 20:30 09/02/18 20:29 Ascorbic Acid (Vitamin C) 500 mg DAILY GT 08/04/18 09:00 09/03/18 08:59 08/13/18 08:15 Aspirin (ASA) 81 mg DAILY GT 08/04/18 09:00 09/03/18 08:59 08/13/18 08:17 Atorvastatin Calcium (Lipitor) 10 mg BEDTIME GT 08/03/18 21:00 09/02/18 20:59 08/12/18 20:04 Bisacodyl (Dulcolax) 10 mg DAILYPRN PRN RECTAL constipation 08/03/18 20:30 09/02/18 20:29 Chlorhexidine Gluconate (Letha-Hex 2%) 1 applic DAILY@1999 TOPIC 08/12/18 20:00 09/11/18 19:59 08/12/18 20:05 Clotrimazole (Lotrimin) 1 applic Q12HR TOPIC 08/07/18 21:00 09/06/18 20:59 08/13/18 08:18 Docusate Sodium (Colace) 100 mg DAILY GT 08/04/18 09:00 09/03/18 08:59 08/13/18 08:15 Doxazosin Mesylate (Cardura) 1 mg QHS GT 08/03/18 21:00 09/02/18 20:59 08/12/18 20:04 Heparin Sodium (Porcine) (Heparin 5000 units/ml) 5,000 units EVERY 12 HOURS SUBQ 08/03/18 21:00 09/02/18 20:59 08/13/18 08:20 Heparin Sodium/ Sodium Chloride (Heparin 2000 units/Ns 1000ml premix) 2,000 unit ONCE PRN INJ PICC 08/12/18 10:40 08/13/18 23:59 Isoniazid (Inh) 300 mg DAILY GT 08/04/18 09:00 09/03/18 08:59 08/13/18 08:15 Lansoprazole (Prevacid) 30 mg Q12HR GT 08/03/18 21:00 09/02/18 20:59 08/13/18 08:15 Levetiracetam (Keppra) 750 mg Q12HR GT 08/03/18 21:00 09/02/18 20:59 08/13/18 08:14 Lidocaine HCl (Xylocaine 1% 30ml) 30 ml ONCE PRN INJ PICC 08/12/18 10:40 08/13/18 23:59 Magnesium Hydroxide (Mom) 30 ml DAILYPRN PRN GT CONSTIPATION 08/03/18 20:30 09/02/18 20:29 Meropenem 1 gm/ Sodium Chloride 55 ml @ 110 mls/hr Q8H IVPB 08/05/18 11:30 08/15/18 11:29 08/13/18 12:41 Metoprolol Tartrate (Lopressor) 25 mg EVERY 12 HOURS GT 08/11/18 21:00 09/02/18 20:59 08/13/18 08:15 Multivitamins (Multivitamins W/ Minerals 15ml Liquid) 15 ml DAILY GT 08/04/18 09:00 09/03/18 08:59 08/13/18 08:14 Ondansetron HCl (Zofran) 4 mg Q8H PRN IVP Nausea & Vomiting 08/03/18 20:30 09/02/18 20:29 Pyrazinamide (Pza) 1,000 mg DAILY GT 08/04/18 09:00 09/03/18 08:59 08/13/18 08:16 Pyridoxine HCl (Vitamin B6) 100 mg DAILY GT 08/04/18 09:00 09/03/18 08:59 08/13/18 08:16 Rifampin (Rifadin) 600 mg DAILY GT 08/04/18 09:00 09/03/18 08:59 08/13/18 08:14 Sodium Phosphate (Fleet's Sodium Phosl Enema) 133 ml DAILYPRN PRN RECTAL constipation 08/03/18 20:30 09/02/18 20:29 Terbinafine HCl (LaMISil 30gm) 1 applic EVERY 12 HOURS TOPIC 08/07/18 21:00 09/06/18 18:59 08/13/18 08:18 Vancomycin HCl (Vanco rx to dose) 1 ea DAILY PRN MISC Per rx protocol 08/07/18 11:15 09/06/18 11:14 Vancomycin/Sodium Chloride 250 ml @ 166.667 mls/hr Q12HR@0400,1600 IVPB 08/07/18 16:00 08/16/18 23:59 08/13/18 03:48 Zinc Sulfate (Zinc Sulfate) 220 mg DAILY GT 08/04/18 09:00 09/03/18 08:59 08/13/18 08:17 Rahul Shen MD Aug 13, 2018 13:20
--- NOTE | 2018-08-13 15:19 | Pulmonology Progress Note ---
Assessment/Plan Assessment/Plan Pulmonary Progress Note Assessment/Plan Assessment/Plan respiratory failure tachycardia sepsis leukocytosis anemia severe protein calorie malnutrition trach GT aspiration pneumonia urosepsis ho TB PLAN care noted and reviewed IV antibiotics- reviewed WBC noted ID follow up respiratory care and monitor imaging Ventilatory support without change on AC aspiration precautions optimize for dc SNF meds supportive care suction as needed no wean oxygen therapy monitor labs nutrition as able and monitor albumin levels prognosis overall poor proceed with dc planning back to snf per primary impression, plan, and exam edited and reviewed in detail care discussed with RN Subjective ROS Limited/Unobtainable: Yes Allergies: Coded Allergies: No Known Allergies (Unverified , 01/27/17) Subjective cultures and sens noted on vent/poorly responsive overnight events reviewed Objective Vital Signs Noted Objective WDWN trach reduced breath sounds bilaterally with some rhonchi [id number] without MRG NABS nontender no HSM; GT no CCE contracted nonfocal poorly responsive reviewed and edited Current Medications Medications (Trade) Dose Ordered Sig/Iram Route PRN Reason Start Time Stop Time Status Last Admin Dose Admin Acetaminophen (Tylenol) 650 mg Q6H PRN GT Mild Pain/Temp > 101.0 08/03/18 20:30 09/02/18 20:29 08/11/18 03:14 Amikacin Sulfate (Amikin) 500 mg Q12HR@10,22 INH 08/09/18 22:00 08/16/18 21:59 08/12/18 09:55 Amlodipine Besylate (Norvasc) 10 mg DAILY GT 08/04/18 09:00 09/03/18 08:59 08/12/18 08:37 Artificial Tears (Akwa-Tears) 2 drop DAILYPRN PRN BOTH EYES DRY EYES 08/03/18 20:30 09/02/18 20:29 Ascorbic Acid (Vitamin C) 500 mg DAILY GT 08/04/18 09:00 09/03/18 08:59 08/12/18 08:37 Aspirin (ASA) 81 mg DAILY GT 08/04/18 09:00 09/03/18 08:59 08/12/18 08:37 Atorvastatin Calcium (Lipitor) 10 mg BEDTIME GT 08/03/18 21:00 09/02/18 20:59 08/11/18 20:32 Bisacodyl (Dulcolax) 10 mg DAILYPRN PRN RECTAL constipation 08/03/18 20:30 09/02/18 20:29 Chlorhexidine Gluconate (Letha-Hex 2%) 1 applic DAILY@2000 TOPIC 08/12/18 20:00 09/11/18 19:59 Clotrimazole (Lotrimin) 1 applic Q12HR TOPIC 08/07/18 21:00 09/06/18 20:59 08/12/18 08:39 Docusate Sodium (Colace) 100 mg DAILY GT 08/04/18 09:00 09/03/18 08:59 08/12/18 08:37 Doxazosin Mesylate (Cardura) 1 mg QHS GT 08/03/18 21:00 09/02/18 20:59 08/11/18 20:32 Heparin Sodium (Porcine) (Heparin 5000 units/ml) 5,000 units EVERY 12 HOURS SUBQ 08/03/18 21:00 09/02/18 20:59 08/12/18 08:39 Heparin Sodium/ Sodium Chloride (Heparin 2000 units/Ns 1000ml premix) 2,000 unit ONCE PRN INJ PICC 08/12/18 10:40 08/13/18 23:59 Isoniazid (Inh) 300 mg DAILY GT 08/04/18 09:00 09/03/18 08:59 08/12/18 08:37 Lansoprazole (Prevacid) 30 mg Q12HR GT 08/03/18 21:00 09/02/18 20:59 08/12/18 08:37 Levetiracetam (Keppra) 750 mg Q12HR GT 08/03/18 21:00 09/02/18 20:59 08/12/18 08:36 Lidocaine HCl (Xylocaine 1% 30ml) 30 ml ONCE PRN INJ PICC 08/12/18 10:40 08/13/18 23:59 Magnesium Hydroxide (Mom) 30 ml DAILYPRN PRN GT CONSTIPATION 08/03/18 20:30 09/02/18 20:29 Meropenem 1 gm/ Sodium Chloride 55 ml @ 110 mls/hr Q8H IVPB 08/05/18 11:30 08/15/18 11:29 08/12/18 11:18 Metoprolol Tartrate (Lopressor) 25 mg EVERY 12 HOURS GT 08/11/18 21:00 09/02/18 20:59 08/12/18 08:38 Multivitamins (Multivitamins W/ Minerals 15ml Liquid) 15 ml DAILY GT 08/04/18 09:00 09/03/18 08:59 08/12/18 08:37 Ondansetron HCl (Zofran) 4 mg Q8H PRN IVP Nausea & Vomiting 08/03/18 20:30 09/02/18 20:29 Pyrazinamide (Pza) 1,000 mg DAILY GT 08/04/18 09:00 09/03/18 08:59 08/12/18 08:38 Pyridoxine HCl (Vitamin B6) 100 mg DAILY GT 08/04/18 09:00 09/03/18 08:59 08/12/18 08:37 Rifampin (Rifadin) 600 mg DAILY GT 08/04/18 09:00 09/03/18 08:59 08/12/18 08:38 Sodium Phosphate (Fleet's Sodium Phosl Enema) 133 ml DAILYPRN PRN RECTAL constipation 08/03/18 20:30 09/02/18 20:29 Terbinafine HCl (LaMISil 30gm) 1 applic EVERY 12 HOURS TOPIC 08/07/18 21:00 09/06/18 18:59 08/12/18 08:39 Vancomycin HCl (Vanco rx to dose) 1 ea DAILY PRN MISC Per rx protocol 08/07/18 11:15 09/06/18 11:14 Vancomycin/Sodium Chloride 250 ml @ 166.667 mls/hr Q12HR@0400,1600 IVPB 08/07/18 16:00 08/16/18 23:59 08/12/18 15:30 Zinc Sulfate (Zinc Sulfate) 220 mg DAILY GT 08/04/18 09:00 09/03/18 08:59 08/12/18 08:38 Subjective ROS Limited/Unobtainable: No Allergies: Coded Allergies: No Known Allergies (Unverified , 01/27/17) Objective Last 24 Hour Vital Signs Date Time Temp Pulse Resp B/P (MAP) Pulse Ox O2 Delivery O2 Flow Rate FiO2 08/13/18 12:59 64 23 Mechanical Ventilator 30 08/13/18 12:58 64 23 30 08/13/18 12:00 Mechanical Ventilator 08/13/18 12:00 97.7 61 25 148/73 (98) 97 08/13/18 12:00 30 08/13/18 12:00 64 08/13/18 10:58 64 14 100 Mechanical Ventilator 30 08/13/18 10:49 61 24 99 Mechanical Ventilator 30 08/13/18 10:48 61 25 30 08/13/18 09:06 65 25 30 08/13/18 08:15 65 142/72 08/13/18 08:15 65 142/72 08/13/18 08:00 62 08/13/18 08:00 97.5 65 26 142/72 (95) 99 08/13/18 08:00 30 08/13/18 08:00 Mechanical Ventilator 08/13/18 06:55 62 28 30 08/13/18 05:25 60 17 30 08/13/18 04:00 Mechanical Ventilator 08/13/18 04:00 30 08/13/18 04:00 65 08/13/18 04:00 97.0 62 24 143/70 (94) 99 08/13/18 02:58 66 23 30 08/13/18 00:41 62 17 30 08/13/18 00:00 97.7 63 20 142/71 (94) 100 08/13/18 00:00 60 08/13/18 00:00 Mechanical Ventilator 08/12/18 22:30 65 18 30 08/12/18 22:26 65 22 100 Mechanical Ventilator 30 08/12/18 22:14 62 22 100 Mechanical Ventilator 30 08/12/18 20:51 60 16 30 08/12/18 20:05 70 144/75 08/12/18 20:00 Mechanical Ventilator 08/12/18 20:00 98.1 62 21 144/75 (98) 100 08/12/18 20:00 30 08/12/18 20:00 61 08/12/18 19:30 59 18 30 08/12/18 17:33 64 15 30 08/12/18 16:00 97.7 66 17 138/71 (93) 100 08/12/18 16:00 Mechanical Ventilator 08/12/18 16:00 30 08/12/18 15:27 65 Intake and Output 08/12/18 08/13/18 19:00 07:00 Intake Total 1308.334 ml 1578.2 ml Output Total 700 ml 550 ml Balance 608.334 ml 1028.2 ml Intake Free Water 400 ml 300 ml IV Total 388.334 ml 498.2 ml Tube Feeding 520 ml 780 ml Output Urine Total 700 ml 550 ml Current Medications Medications (Trade) Dose Ordered Sig/Iram Route PRN Reason Start Time Stop Time Status Last Admin Dose Admin Acetaminophen (Tylenol) 650 mg Q6H PRN GT Mild Pain/Temp > 101.0 08/03/18 20:30 09/02/18 20:29 08/11/18 03:14 Amikacin Sulfate (Amikin) 500 mg Q12HR@10,22 INH 08/09/18 22:00 08/16/18 21:59 08/13/18 10:55 Amlodipine Besylate (Norvasc) 10 mg DAILY GT 08/04/18 09:00 09/03/18 08:59 08/13/18 08:15 Artificial Tears (Akwa-Tears) 2 drop DAILYPRN PRN BOTH EYES DRY EYES 08/03/18 20:30 09/02/18 20:29 Ascorbic Acid (Vitamin C) 500 mg DAILY GT 08/04/18 09:00 09/03/18 08:59 08/13/18 08:15 Aspirin (ASA) 81 mg DAILY GT 08/04/18 09:00 09/03/18 08:59 08/13/18 08:17 Atorvastatin Calcium (Lipitor) 10 mg BEDTIME GT 08/03/18 21:00 09/02/18 20:59 08/12/18 20:04 Bisacodyl (Dulcolax) 10 mg DAILYPRN PRN RECTAL constipation 08/03/18 20:30 09/02/18 20:29 Chlorhexidine Gluconate (Letha-Hex 2%) 1 applic DAILY@1999 TOPIC 08/12/18 20:00 09/11/18 19:59 08/12/18 20:05 Clotrimazole (Lotrimin) 1 applic Q12HR TOPIC 08/07/18 21:00 09/06/18 20:59 08/13/18 08:18 Docusate Sodium (Colace) 100 mg DAILY GT 08/04/18 09:00 09/03/18 08:59 08/13/18 08:15 Doxazosin Mesylate (Cardura) 1 mg QHS GT 08/03/18 21:00 09/02/18 20:59 1/8/19 20:04 Heparin Sodium (Porcine) (Heparin 5000 units/ml) 5,000 units EVERY 12 HOURS SUBQ 08/03/18 21:00 09/02/18 20:59 08/13/18 08:20 Heparin Sodium/ Sodium Chloride (Heparin 2000 units/Ns 1000ml premix) 2,000 unit ONCE PRN INJ PICC 08/12/18 10:40 08/13/18 23:59 Isoniazid (Inh) 300 mg DAILY GT 08/04/18 09:00 09/03/18 08:59 08/13/18 08:15 Lansoprazole (Prevacid) 30 mg Q12HR GT 08/03/18 21:00 09/02/18 20:59 08/13/18 08:15 Levetiracetam (Keppra) 750 mg Q12HR GT 08/03/18 21:00 09/02/18 20:59 08/13/18 08:14 Lidocaine HCl (Xylocaine 1% 30ml) 30 ml ONCE PRN INJ PICC 08/12/18 10:40 08/13/18 23:59 Magnesium Hydroxide (Mom) 30 ml DAILYPRN PRN GT CONSTIPATION 08/03/18 20:30 09/02/18 20:29 Meropenem 1 gm/ Sodium Chloride 55 ml @ 110 mls/hr Q8H IVPB 08/05/18 11:30 08/15/18 11:29 08/13/18 12:41 Metoprolol Tartrate (Lopressor) 25 mg EVERY 12 HOURS GT 08/11/18 21:00 09/02/18 20:59 08/13/18 08:15 Multivitamins (Multivitamins W/ Minerals 15ml Liquid) 15 ml DAILY GT 08/04/18 09:00 09/03/18 08:59 08/13/18 08:14 Ondansetron HCl (Zofran) 4 mg Q8H PRN IVP Nausea & Vomiting 08/03/18 20:30 09/02/18 20:29 Pyrazinamide (Pza) 1,000 mg DAILY GT 08/04/18 09:00 09/03/18 08:59 08/13/18 08:16 Pyridoxine HCl (Vitamin B6) 100 mg DAILY GT 08/04/18 09:00 09/03/18 08:59 08/13/18 08:16 Rifampin (Rifadin) 600 mg DAILY GT 08/04/18 09:00 09/03/18 08:59 08/13/18 08:14 Sodium Phosphate (Fleet's Sodium Phosl Enema) 133 ml DAILYPRN PRN RECTAL constipation 08/03/18 20:30 09/02/18 20:29 Terbinafine HCl (LaMISil 30gm) 1 applic EVERY 12 HOURS TOPIC 08/07/18 21:00 09/06/18 18:59 08/13/18 08:18 Vancomycin HCl (Vanco rx to dose) 1 ea DAILY PRN MISC Per rx protocol 08/07/18 11:15 09/06/18 11:14 Vancomycin/Sodium Chloride 250 ml @ 166.667 mls/hr Q12HR@0400,1600 IVPB 08/07/18 16:00 08/16/18 23:59 08/13/18 03:48 Zinc Sulfate (Zinc Sulfate) 220 mg DAILY GT 08/04/18 09:00 09/03/18 08:59 08/13/18 08:17 Jones Rasmussen MD Aug 13, 2018 15:19
[2018-08-13 16:00] VITALS: BP 148/73
--- NOTE | 2018-08-13 17:15 | NUR ---
CASE MANAGEMENT: DCPNOTE UPON DISCHARGE PATIENT WILL TRANSFER BACK TO [facility] [phone] [address] [facility] [phone] IN AGREEMENT WITH TRANSFERRING BACK TO THIS FACILITY TRANSPORTATION VIA [facility] [id number]
--- NOTE | 2018-08-13 18:25 | NUR ---
NURSE NOTES: Wound pictures taken and wound care done.
--- NOTE | 2018-08-13 18:45 | NUR ---
NURSE NOTES: SBAR report given to LALA Curtis at SNF. Patient discharged back to SNF. Gave report LALA Solis from [facility].
--- NOTE | 2018-08-13 22:15 | Discharge Summary ---
DATE OF ADMISSION: 08/03/2018 DATE OF DISCHARGE: 08/13/2018 ADMISSION DIAGNOSES: 1. Sepsis. 2. Encephalopathy. 3. Cerebrovascular accident. 4. Seizure disorder. 5. Pulmonary tuberculosis. 6. History of anemia. 7. Chronic kidney disease. 8. History of hypertension. 9. History of supraventricular tachycardia. DISCHARGE DIAGNOSES: 1. Sepsis. 2. Encephalopathy. 3. Cerebrovascular accident. 4. Seizure disorder. 5. History of anemia. 6. Chronic kidney disease. 7. History of hypertension. 8. History of supraventricular tachycardia. 9. Enterococcal and Escherichia coli sepsis. 10. Pseudomonas pneumonia. 11. Escherichia coli urinary tract infection. 12. Pulmonary tuberculosis. HOSPITAL COURSE: The patient is an unfortunate male with history of chronic respiratory failure, encephalopathy, stroke, pulmonary tuberculosis, and seizure disorder. He was transferred with complaints of fevers and tachycardia. He was diagnosed with Enterococcal and E. coli sepsis, Pseudomonas pneumonia and urinary tract infection. He was anemic and required transfusion. He was continued on seizure medications as well as his normal tuberculosis medications. After prolonged hospitalization, the patient was stable. He will be discharged back to the assisted facility to complete antibiotic therapy there. DISCHARGE MEDICATIONS: Please see discharge medication list for discharge medications. DIET: G-tube feedings. ACTIVITIES: Ad-leslye. FOLLOW-UP: The patient will be followed up in one to two days at the assisted facility. Jarrod Vásquez M.D. DR: GIANNI JOB#: [id number] CC:
--- NOTE | 2018-08-14 00:45 | Progress Note ---
CARDIOLOGY PROGRESS NOTE DATE: 08/13/2018 SUBJECTIVE: The patient is on vent poorly responsive, but that is his baseline. No new fevers. Secretions have diminished from trach site. OBJECTIVE: VITAL SIGNS: Blood pressure 148/73, pulse 61, and respirations 25. Afebrile. LUNGS: Coarse breath sounds. Few rhonchi. HEART: Regular rhythm and rate. Normal S1, S2 with a fourth heart sound. ABDOMEN: Soft. G-tube intact. EXTREMITIES: No edema. LABORATORY DATA: No new labs. IMPRESSION: 1. Respiratory failure with tracheostomy. 2. Healthcare-acquired pneumonia, improved. 3. Pulmonary tuberculosis, on therapy. 4. Hypertensive heart disease with overall adequate blood pressure control. 5. Diastolic dysfunction with compensated congestive heart failure. 6. Dysphagia with G-tube and severe protein-calorie malnutrition. PLAN: 1. Stable for subacute facility. 2. Discharge medication regimen reviewed. 3. Discussed with primary care physician. 4. Outpatient evaluation of pulmonary tuberculosis therapy and need to continue. 5. Remains high risk with poor long-term prognosis. Jones Arauz M.D. DR: OLEG JOB#: [id number] CC:
== END 2018-08-13 19:00 | DRG 720 ==
LOC: EDBD 10:57 → EMR 11:45 → 2W 12:55 → EDBEDREQ 14:58 → 2W 18:50
PROC: 5A1955Z Respiratory Ventilation, Greater than 96 Consecutive Hours (ICD-10-PCS; principal; 2018-08-03)
PROC: 02HV33Z Insertion of Infusion Device into Superior Vena Cava, Percutaneous Approach (ICD-10-PCS; 2018-08-12)
PROC: B548ZZA Ultrasonography of Superior Vena Cava, Guidance (ICD-10-PCS; 2018-08-12)
DX: A41.81 Sepsis due to Enterococcus (principal); J69.0 Pneumonitis due to inhalation of food and vomit; G92 Toxic encephalopathy; E43 Unspecified severe protein-calorie malnutrition; Z99.11 Dependence on respirator [ventilator] status; L89.159 Pressure ulcer of sacral region, unspecified stage; Z93.0 Tracheostomy status; J96.10 Chronic respiratory failure, unspecified whether with hypoxia or hypercapnia; A41.51 Sepsis due to Escherichia coli [E. coli]; N39.0 Urinary tract infection, site not specified; B96.20 Unspecified Escherichia coli [E. coli] as the cause of diseases classified elsewhere; A15.0 Tuberculosis of lung; Z86.73 Personal history of transient ischemic attack (TIA), and cerebral infarction without residual deficits; Z93.1 Gastrostomy status; E86.0 Dehydration; F03.90 Unspecified dementia, unspecified severity, without behavioral disturbance, psychotic disturbance, mood disturbance, and anxiety; R13.10 Dysphagia, unspecified; D64.9 Anemia, unspecified; I48.0 Paroxysmal atrial fibrillation; I13.0 Hypertensive heart and chronic kidney disease with heart failure and stage 1 through stage 4 chronic kidney disease, or unspecified chronic kidney disease; N18.9 Chronic kidney disease, unspecified; I50.9 Heart failure, unspecified; Z68.21 Body mass index [BMI] 21.0-21.9, adult; E87.6 Hypokalemia; E87.1 Hypo-osmolality and hyponatremia; G40.901 Epilepsy, unspecified, not intractable, with status epilepticus; E78.5 Hyperlipidemia, unspecified
CPT/HCPCS: 36415; 36569; 36600; 71045; 76937; 80048; 80053; 80202; 81003; 82248; 82550; 82803; 83605; 83735; 83880; 84484; 85007; 85025; 85610; 85730; 86850; 86900; 86901; 86920; 87040; 87070; 87081; 87086; 87181; 87205; 93005; 93306; 94002; 94003; 94640; 94664; 96361; 96365; 96366; 96367; 99285; J8499

== ENCOUNTER 2018-12-08 17:21 | Inpatient (IN) | payer MEDICARE, OTHER ==
[~2018-12-08] VITALS: Ht 170.2 cm; Wt 53.6 kg
[~2018-12-08 17:21] MED LIST changes: +ACETAMINOP160 MG/5 M GT; +AMIKIN500 MG/2 M INH; +ASCORBIC ACID500 MG GT; +LEVETIRACE100 MG/1 M GT; +MEROPENEM1 GM IVPB; +METOPROLOL TART50 M1 GT; +MILK OF MA400 MG/51 GT; +PROMOD946 ML GT; +PYRAZINAMIDE500 MG GT; +RIFAMPIN300 MG GT; +VANCOMYCIN750 MG/150 IVPB; +VITAMIN B-6100 MG GT; +ZINC SULFATE220 M1 GT
--- NOTE | 2018-12-08 17:53 | NUR ---
ED Nurse Note: Pt ALDAIR from [facility]. due to complaints of abnormal labs and fever since 1100 this morning. Pt was given 650mg Tylenol and rectal temp of pt upon arrival to ED was 98.6F. Pt is nonverbal. vent dependent. Gtube site. Pressure ulcer noted on the sacrum, lower back, mid back, left hip and right hip. Pt full code.
[2018-12-08 17:55] VITALS: BP 111/52
--- NOTE | 2018-12-08 18:17 | Emergency Room Report ---
History of Present Illness General Chief Complaint: Abnormal Labs Source: Medical Record, EMS Present Illness HPI Patient present from nursing facility with reports of elevated temperature and low blood count patient himself is chronically debilitated on a tracheostomy and is vent dependent patient is nonverbal himself is not able to provide history I spoke to the patient's usp physician as well No obvious reports a fall fever was documented today No obvious increased cough or respiratory complaints Allergies: Coded Allergies: No Known Allergies (Unverified , 01/27/17) Patient History Past Medical History: see triage record Pertinent Family History: none Reviewed Nursing Documentation: PMH: Agreed; PSxH: Agreed Nursing Documentation-PMH Hx Cardiac Problems: Yes Hx Hypertension: Yes Hx Pacemaker: No - BPH Hx Asthma: Yes Hx Cancer: No Hx Gastrointestinal Problems: Yes Hx Neurological Problems: Yes Hx Cerebrovascular Accident: Yes Hx Transient Ischemic Attacks: Yes Hx Dementia: Yes Hx Encephalitis: Yes Hx Seizures: Yes Hx Epilepsy: Yes Hx Syncope: Yes Hx Dysphasia: Yes Review of Systems All Other Systems: negative except mentioned in HPI Physical Exam Vital Signs Date Time Temp Pulse Resp B/P (MAP) Pulse Ox O2 Delivery O2 Flow Rate FiO2 12/08/18 17:13 96.1 77 24 98 Trach Collar 12/08/18 17:43 40 12/08/18 17:55 111/52 Sp02 EP Interpretation: reviewed, normal General Appearance: no apparent distress Head: normocephalic, atraumatic Eyes: bilateral eye PERRL, bilateral eye EOMI ENT: dry mucus membranes Neck: supple, other - Tracheostomy in place no crepitus Respiratory: no retraction, no accessory muscle use, crackles - Bilaterally Cardiovascular #1: tachycardia Gastrointestinal: non tender, soft Musculoskeletal: other - Patient contracted, limited examination Neurologic: responsive - To physical stimuli Skin: other - poor turgor Lymphatic: no adenopathy Medical Decision Making Diagnostic Impression: Primary Impression: Hypernatremia Additional Impression: Dehydration ER Course Patient is a fairly complex patient with multiple differential to consideration including but not limited to cardiac cardiopulmonary and vascular emergencies Patient's blood work reveals abnormal electrolytes Patient further hydrated x-ray imaging also shows questionable bilateral infiltrates versus other Patient requiring admission for further care Labs Test 12/08/18 17:53 12/09/18 03:25 White Blood Count 10.6 K/UL (4.8-10.8) 10.2 K/UL (4.8-10.8) Red Blood Count 3.02 M/UL (4.70-6.10) 2.89 M/UL (4.70-6.10) Hemoglobin 7.4 G/DL (14.2-18.0) 7.1 G/DL (14.2-18.0) Hematocrit 24.4 % (42.0-52.0) 23.8 % (42.0-52.0) Mean Corpuscular Volume 81 FL (80-99) 82 FL (80-99) Mean Corpuscular Hemoglobin 24.5 PG (27.0-31.0) 24.7 PG (27.0-31.0) Mean Corpuscular Hemoglobin Concent 30.3 G/DL (32.0-36.0) 30.0 G/DL (32.0-36.0) Red Cell Distribution Width 17.6 % (11.6-14.8) 17.9 % (11.6-14.8) Platelet Count 440 K/UL (150-450) 459 K/UL (150-450) Mean Platelet Volume 4.5 FL (6.5-10.1) 5.1 FL (6.5-10.1) Neutrophils (%) (Auto) % (45.0-75.0) % (45.0-75.0) Lymphocytes (%) (Auto) % (20.0-45.0) % (20.0-45.0) Monocytes (%) (Auto) % (1.0-10.0) % (1.0-10.0) Eosinophils (%) (Auto) % (0.0-3.0) % (0.0-3.0) Basophils (%) (Auto) % (0.0-2.0) % (0.0-2.0) Differential Total Cells Counted 100 Neutrophils % (Manual) 85 % (45-75) Lymphocytes % (Manual) 8 % (20-45) Monocytes % (Manual) 4 % (1-10) Eosinophils % (Manual) 3 % (0-3) Basophils % (Manual) 0 % (0-2) Band Neutrophils 0 % (0-8) Platelet Estimate Adequate Platelet Morphology Normal Hypochromasia 1+ Anisocytosis 1+ Urine Color Brown Urine Appearance Slightly cloudy Urine pH 5 (4.5-8.0) Urine Specific [place] 1.015 (1.005-1.035) Urine Protein 2+ (NEGATIVE) Urine Glucose (UA) Negative (NEGATIVE) Urine Ketones 1+ (NEGATIVE) Urine Blood 4+ (NEGATIVE) Urine Nitrite Negative (NEGATIVE) Urine Bilirubin Negative (NEGATIVE) Urine Urobilinogen 4 MG/DL (0.0-1.0) Urine Leukocyte Esterase 3+ (NEGATIVE) Urine RBC 5-10 /HPF (0 - 0) Urine WBC 2-4 /HPF (0 - 0) Urine Squamous Epithelial Cells None /LPF (NONE/OCC) Urine Bacteria Few /HPF (NONE) Sodium Level 150 MMOL/L (136-145) 147 MMOL/L (136-145) Potassium Level 4.4 MMOL/L (3.5-5.1) 3.6 MMOL/L (3.5-5.1) Chloride Level 115 MMOL/L (98-107) 113 MMOL/L (98-107) Carbon Dioxide Level 30 MMOL/L (21-32) 29 MMOL/L (21-32) Anion Gap 5 mmol/L (5-15) 5 mmol/L (5-15) Blood Urea Nitrogen 47 mg/dL (7-18) 39 mg/dL (7-18) Creatinine 0.7 MG/DL (0.55-1.30) 0.7 MG/DL (0.55-1.30) Estimat Glomerular Filtration Rate mL/min (>60) mL/min (>60) Glucose Level 176 MG/DL (74-106) 137 MG/DL (74-106) Lactic Acid Level 1.40 mmol/L (0.4-2.0) Calcium Level 8.5 MG/DL (8.5-10.1) 8.2 MG/DL (8.5-10.1) Total Bilirubin 0.9 MG/DL (0.2-1.0) 0.9 MG/DL (0.2-1.0) Aspartate Amino Transf (AST/SGOT) 94 U/L (15-37) 64 U/L (15-37) Alanine Aminotransferase (ALT/SGPT) 16 U/L (12-78) 14 U/L (12-78) Alkaline Phosphatase 453 U/L (46-116) 400 U/L (46-116) Total Creatine Kinase 142 U/L (26-308) Creatine Kinase MB 1.6 NG/ML (0.0-3.6) Creatine Kinase MB Relative Index 1.1 Troponin I 0.000 ng/mL (0.000-0.056) Pro-B-Type Natriuretic Peptide 1581 pg/mL (0-125) Total Protein 7.2 G/DL (6.4-8.2) 6.7 G/DL (6.4-8.2) Albumin 1.0 G/DL (3.4-5.0) 1.0 G/DL (3.4-5.0) Globulin 6.2 g/dL 5.7 g/dL Albumin/Globulin Ratio 0.2 (1.0-2.7) 0.2 (1.0-2.7) Lipase 467 U/L (73-393) Rhythm Strip Diag. Results EP Interpretation: yes Rate: 80 Rhythm: NSR, no PVC's, no ectopy Chest X-Ray Diagnostic Results Chest X-Ray Diagnostic Results : Chest X-Ray Ordered: Yes # of Views/Limited/Complete: 1 View Indication: Shortness of Breath EP Interpretation: Yes Interpretation: no effusion, no pneumothorax, other - Patchy infiltrates bilaterally Impression: Other - Patchy infiltrates bilaterally Electronically Signed by: Ralph Hallman DO Last Vital Signs Date Time Temp Pulse Resp B/P (MAP) Pulse Ox O2 Delivery O2 Flow Rate FiO2 12/08/18 17:55 98.6 70 18 111/52 100 Mechanical Ventilator 40 Status: improved Disposition: ADMITTED INPATIENT Condition: Serious Referrals: Jarrod Vásquez MD (PCP) Ralph Hallman DO December 08, 2018 18:17
[2018-12-08 18:26] LABS: HEMATOCRIT 24.4 % (42.0-52.0); HEMOGLOBIN 7.4 G/DL (14.2-18.0); MEAN CORPUSCULAR VOLUME 81 FL (80-99); PLATELET COUNT 440 K/UL (150-450); RED BLOOD COUNT 3.02 M/UL (4.70-6.10); RED CELL DISTRIBUTION WIDTH 17.6 % (11.6-14.8); WHITE BLOOD COUNT 10.6 K/UL (4.8-10.8)
[2018-12-08 18:27] LABS: ANION GAP 5 mmol/L (5-15); BLOOD UREA NITROGEN 47 mg/dL (7-18); CALCIUM 8.5 MG/DL (8.5-10.1); CARBON DIOXIDE 30 MMOL/L (21-32); CHLORIDE 115 MMOL/L (98-107); CREATININE 0.7 MG/DL (0.55-1.30); POTASSIUM 4.4 MMOL/L (3.5-5.1); SODIUM 150 MMOL/L (136-145)
[2018-12-08 18:39] LABS: APPEARANCE,URINE SLIGHTLY CLOUDY; BILIRUBIN, URINE NEGATIVE (NEGATIVE); COLOR,URINE BROWN; GLUCOSE, URINE (UA) NEGATIVE (NEGATIVE); KETONES,URINE 1+ (NEGATIVE); LEUKOCYTE ESTERASE ,URINE 3+ (NEGATIVE); NITRITE,URINE NEGATIVE (NEGATIVE); PH,URINE 5 (4.5-8.0); PROTEIN,URINE 2+ (NEGATIVE); UROBILINOGEN,URINE 4 MG/DL (0.0-1.0)
[2018-12-08 18:40] LABS: ALANINE AMINOTRANSFERASE 16 U/L (12-78); ALBUMIN/GLOBULIN RATIO 0.2 (1.0-2.7); ALKALINE PHOSPHATASE 453 U/L (46-116); ASPARTATE AMINO TRANSFERASE 94 U/L (15-37); BILIRUBIN,TOTAL 0.9 MG/DL (0.2-1.0); CKMB 1.6 NG/ML (0.0-3.6); CREATINE KINASE 142 U/L (26-308)
--- NOTE | 2018-12-08 18:52 | NUR ---
ED Nurse Note: Spoke to LALA Montez from SDU to give report and she stated that the nurse has not arrived yet. Will try again.
--- NOTE | 2018-12-08 18:58 | NUR ---
HAND-OFF: Report given to LALA Salcedo.
--- NOTE | 2018-12-08 19:00 | NUR ---
ED Nurse Note: Received report from LALA Perdue. Pt in bed asleep. On vent, nonverbal. No distress noted at this time. Will call floor for report.
[2018-12-08] MEDS ORDERED: Piperacillin/Tazobactam 3.375 GM in NS 110 ML IVPB ONE (19:15)
--- NOTE | 2018-12-08 19:31 | NUR ---
CASE MANAGEMENT: REVIEW 73Y/M KARENA FROM [facility] CC: LOW HGB 7.8 SI: ANEMIA . SEPSIS . TRACH T 96.6 HR 77 RR 24 BP 111/52 SAT 100% MECH VENT FIO2 H/H 7.4/24.4 NA 150 BUN 47 IS: NS IVF BOLUS X1 ZOSYN IV X1 PATIENT ADMITTED TO [facility]EP DOWN UNIT 12/08/2018 DCP: PATIENT IS FROM [facility]
--- NOTE | 2018-12-08 20:42 | NUR ---
TRANSFER TO FLOOR: Patient transferred to [facility] as ordered, per MD Loera. Report given to Luz Elena REEVES. Belongings and medications given to Luz Elena REEVES. Family and or S/O informed of transfer.
[2018-12-08] MEDS ORDERED: Acetaminophen 650mg/20.3ml ORAL PRN (20:45)
[2018-12-08] MEDS ORDERED: Artificial Tears 1.4% Op Soln BOTH EYES PRN (20:45)
[2018-12-08] MEDS ORDERED: Fleet's Enema 133ml RECTAL PRN (20:45)
[2018-12-08] MEDS ORDERED: Milk of Magnesia 30ml Ud GT PRN (20:45)
--- NOTE | 2018-12-08 20:45 | NUR ---
NURSE NOTES: Report received from LALA Salcedo. Pt obtunded, non-verbal, opens eyes spontaneously. environmental monitoring technician shows SR. Pt trach to ventilator dependent with Portex 7. Ventilator settings: AC12, VT 500, FiO2: 40%, PEEP 5. Pt has a GT in place, patent. Manzo catheter present and draining well. Multiple pressure wounds present. See WCP for skin alterations. Pt has a RH22g, asymptomatic and patent. Family at bedside. VSS. Pt showing no signs of acute respiratory or cardiac distress. Will continue to monitor and with patients plan of care
[2018-12-08] MEDS ORDERED: Vancomycin 1gm/D5W 275ml IVPB SCH ×2 (22:00)
[2018-12-08] MEDS: Doxazosin 1mg Tab GT SCH (22:12)
[2018-12-08] MEDS: levETIRAcetam 500mg/5ml Liquid GT SCH (22:12)
[2018-12-08] MEDS: Metoprolol Tartrate 50mg tab GT SCH (23:06)
[2018-12-09] VITALS: BP_SYST 103; BP_SYST 83; BP_DIAS 45; BP_DIAS 50
--- NOTE | 2018-12-09 01:30 | History and Physical Report ---
DATE OF ADMISSION: 12/08/2018 CHIEF COMPLAINT: Sepsis, anemia, and encephalopathy. HISTORY OF PRESENT ILLNESS: The patient is an unfortunate 73-year-old male. He has a history of stroke, seizure disorder, and chronic respiratory failure. He has a history of multiple pressure wounds as well as pulmonary tuberculosis. He was transferred from nursing home facility with complaints of fevers and abnormal laboratories . At the correction, the patient has been relatively stable. He has been noted to have worsening leukocytosis, fevers, and abnormal laboratories. He was transferred to the emergency room. On evaluation there, the patient had a white count of 10,000. He was anemic with a hemoglobin of 7.4. He had a sodium of 150. He had x-ray evidence of bilateral pneumonia. He has been started on broad-spectrum IV antibiotics. He is now admitted for further inpatient evaluation and care. PAST MEDICAL HISTORY: As above. PAST SURGICAL HISTORY: Includes a prior history of a trach and a G-tube. CURRENT MEDICATIONS: Reconciled and reviewed. ALLERGIES: None. FAMILY HISTORY: None. SOCIAL HISTORY: There is no known history of tobacco, ethanol, or drugs. REVIEW OF SYSTEMS: From the patient is unobtainable as he is nonverbal. PHYSICAL EXAMINATION: VITAL SIGNS: Temperature 96, pulse 77, respirations 24, and blood pressure 111/52. GENERAL APPEARANCE: The patient is a chronically ill-appearing male, in no apparent distress. The patient is poorly responsive. NECK: Supple. Trach site is clean, dry, and intact. The heart is regular rate and rhythm. LUNGS: Scattered rhonchi. ABDOMEN: Soft, nontender, and nondistended. EXTREMITIES: No clubbing or cyanosis. The patient has multiple decubitus ulcers noted. LABORATORY DATA: White count 10, hemoglobin 7.4, hematocrit 24, and platelets are 440,000. Sodium 140, potassium 4.4, BUN of 47, and creatinine is 0.4. AST was 94. Natriuretic peptide level is 1500. Lipase is 467. UA showed 2 to 4 wbc's. An x-ray showed bilateral infiltrates. ASSESSMENT: This is an unfortunate male with a prior history of stroke, encephalopathy, seizure disorder, pulmonary tuberculosis, and anemia admitted with complaints of sepsis secondary to pneumonia and hypernatremia due to dehydration. PLAN: 1. Broad-spectrum intravenous antibiotics. 2. Follow up pending cultures. 3. Hypotonic IV fluids. 4. Monitor laboratories and electrolytes. 5. Pulmonary, Cardiology, and ID consultations to be obtained. 6. Continue aggressive wound care. 7. Continue seizure medications and TB medications. 8. The patient's overall prognosis is poor. 9. Plan of care has been discussed with the patient's . Jarrod Vásquez M.D. DR: CLARA JOB#: [id number] CC:
[2018-12-09] MEDS ORDERED: Piperacillin/Tazobactam 3.375 GM in NS 110 ML IVPB SCH (03:00)
[2018-12-09 04:00] VITALS: BP 126/67
[2018-12-09 05:31] LABS: HEMATOCRIT 23.8 % (42.0-52.0); HEMOGLOBIN 7.1 G/DL (14.2-18.0); MEAN CORPUSCULAR VOLUME 82 FL (80-99); PLATELET COUNT 459 K/UL (150-450); RED BLOOD COUNT 2.89 M/UL (4.70-6.10); RED CELL DISTRIBUTION WIDTH 17.9 % (11.6-14.8); WHITE BLOOD COUNT 10.2 K/UL (4.8-10.8)
[2018-12-09 05:59] LABS: ALANINE AMINOTRANSFERASE 14 U/L (12-78); ALBUMIN/GLOBULIN RATIO 0.2 (1.0-2.7); ALKALINE PHOSPHATASE 400 U/L (46-116); ANION GAP 5 mmol/L (5-15); ASPARTATE AMINO TRANSFERASE 64 U/L (15-37); BILIRUBIN,TOTAL 0.9 MG/DL (0.2-1.0); BLOOD UREA NITROGEN 39 mg/dL (7-18); CALCIUM 8.2 MG/DL (8.5-10.1); CARBON DIOXIDE 29 MMOL/L (21-32); CHLORIDE 113 MMOL/L (98-107); CREATININE 0.7 MG/DL (0.55-1.30); POTASSIUM 3.6 MMOL/L (3.5-5.1); SODIUM 147 MMOL/L (136-145)
--- NOTE | 2018-12-09 07:05 | NUR ---
NURSE NOTES: Report given to LALA Caballero. Pt showing no signs of acute distress. VSS.
--- NOTE | 2018-12-09 07:11 | NUR ---
NURSE NOTES: Received report from LALA Garduno. Patient is resting in bed, in stable condition. No s/sx of SOB, breathing is even and unlabored. Vent settings are as ordered. Observed no presence of pain or discomfort at this time. Per RN Dr. Vásquez is aware of Hgb 7.4, per RN Dr. Vásquez gave no new orders at this time. Bed is in lowest position, brakes engaged. Call light is kept within easy reach. Will continue to monitor patient.
--- NOTE | 2018-12-09 07:31 | NUR ---
RESPIRATORY NOTE: received pt on vent, trach dependent with trach size portex [address] midline, patent and secured via trach tie/guard. no apparent resp distress noted at this time. no redness around stoma or skin tears visible around stoma or neck. pt presents minimal clear/white secretions upon sxn and bilateral rhonchi on auscultation. vent is plugged into the red outlet with alarms on and audible. back up trach at bedside and also ambu bag. will cont to monitor.
[2018-12-09 08:00] VITALS: BP 141/68
[2018-12-09] MEDS: Aspirin Baby 81mg GT SCH (08:28)
[2018-12-09] MEDS: Ascorbic Acid 500mg tab GT SCH (08:29)
[2018-12-09] MEDS: Isoniazid 300mg tab GT SCH (08:29)
[2018-12-09] MEDS: Metoprolol Tartrate 50mg tab GT SCH ×2 (08:29→20:27)
[2018-12-09] MEDS: Zinc Sulfate 220mg cap GT SCH (08:29)
[2018-12-09] MEDS: Multivitamin w/Minerals tab ORAL SCH (08:30)
--- NOTE | 2018-12-09 08:31 | Consultation ---
Consult Note Consult Note 73-year-old male chronically ill who is bed and vent dependent and well known to me. He was transferred from snf facility with complaints of fevers and abnormal lab data . At the long term, the patient has been chronically ill but overall stable. He has been noted to have worsening leukocytosis, fevers, and transferred to the acute. In the ER , the patient had a white count of 10,000. He was anemic with a hemoglobin of 7.4. Sodium was elevated at 150. Patient also noted to have pneumonia and given antibiotics He now requires inpatient evaluation and care. PAST MEDICAL HISTORY: stroke, seizure disorder, and chronic respiratory failure, decubitus, h/o TB and pneumonia. h/o sepsis PAST SURGICAL HISTORY: Includes a prior history of a trach and a G-tube. CURRENT MEDICATIONS: Reconciled and reviewed. ALLERGIES: None. FAMILY HISTORY: None. SOCIAL HISTORY: There is no known history of tobacco, ethanol, or drugs. resides at [place] REVIEW OF SYSTEMS: unobtainable as he is nonverbal. PHYSICAL EXAMINATION: GENERAL APPEARANCE: The patient is a chronically ill-appearing male, in no apparent distress. non responsive. NECK: Supple. Trach site is clean, dry, and intact. CARDS: RRR without MRGI LUNGS: Scattered rhonchi. moderate air entry; no wheeze ABDOMEN: Soft, nontender, and nondistended. GT EXTREMITIES: No clubbing or cyanosis. multiple decubitus NEURO: obtunded LABORATORY DATA: Labs Test 12/08/18 17:53 12/09/18 03:25 White Blood Count 10.6 K/UL (4.8-10.8) 10.2 K/UL (4.8-10.8) Red Blood Count 3.02 M/UL (4.70-6.10) 2.89 M/UL (4.70-6.10) Hemoglobin 7.4 G/DL (14.2-18.0) 7.1 G/DL (14.2-18.0) Hematocrit 24.4 % (42.0-52.0) 23.8 % (42.0-52.0) Mean Corpuscular Volume 81 FL (80-99) 82 FL (80-99) Mean Corpuscular Hemoglobin 24.5 PG (27.0-31.0) 24.7 PG (27.0-31.0) Mean Corpuscular Hemoglobin Concent 30.3 G/DL (32.0-36.0) 30.0 G/DL (32.0-36.0) Red Cell Distribution Width 17.6 % (11.6-14.8) 17.9 % (11.6-14.8) Platelet Count 440 K/UL (150-450) 459 K/UL (150-450) Mean Platelet Volume 4.5 FL (6.5-10.1) 5.1 FL (6.5-10.1) Neutrophils (%) (Auto) % (45.0-75.0) % (45.0-75.0) Lymphocytes (%) (Auto) % (20.0-45.0) % (20.0-45.0) Monocytes (%) (Auto) % (1.0-10.0) % (1.0-10.0) Eosinophils (%) (Auto) % (0.0-3.0) % (0.0-3.0) Basophils (%) (Auto) % (0.0-2.0) % (0.0-2.0) Differential Total Cells Counted 100 Neutrophils % (Manual) 85 % (45-75) Lymphocytes % (Manual) 8 % (20-45) Monocytes % (Manual) 4 % (1-10) Eosinophils % (Manual) 3 % (0-3) Basophils % (Manual) 0 % (0-2) Band Neutrophils 0 % (0-8) Platelet Estimate Adequate Platelet Morphology Normal Hypochromasia 1+ Anisocytosis 1+ Urine Color Brown Urine Appearance Slightly cloudy Urine pH 5 (4.5-8.0) Urine Specific [place] 1.015 (1.005-1.035) Urine Protein 2+ (NEGATIVE) Urine Glucose (UA) Negative (NEGATIVE) Urine Ketones 1+ (NEGATIVE) Urine Blood 4+ (NEGATIVE) Urine Nitrite Negative (NEGATIVE) Urine Bilirubin Negative (NEGATIVE) Urine Urobilinogen 4 MG/DL (0.0-1.0) Urine Leukocyte Esterase 3+ (NEGATIVE) Urine RBC 5-10 /HPF (0 - 0) Urine WBC 2-4 /HPF (0 - 0) Urine Squamous Epithelial Cells None /LPF (NONE/OCC) Urine Bacteria Few /HPF (NONE) Sodium Level 150 MMOL/L (136-145) 147 MMOL/L (136-145) Potassium Level 4.4 MMOL/L (3.5-5.1) 3.6 MMOL/L (3.5-5.1) Chloride Level 115 MMOL/L (98-107) 113 MMOL/L (98-107) Carbon Dioxide Level 30 MMOL/L (21-32) 29 MMOL/L (21-32) Anion Gap 5 mmol/L (5-15) 5 mmol/L (5-15) Blood Urea Nitrogen 47 mg/dL (7-18) 39 mg/dL (7-18) Creatinine 0.7 MG/DL (0.55-1.30) 0.7 MG/DL (0.55-1.30) Estimat Glomerular Filtration Rate mL/min (>60) mL/min (>60) Glucose Level 176 MG/DL (74-106) 137 MG/DL (74-106) Lactic Acid Level 1.40 mmol/L (0.4-2.0) Calcium Level 8.5 MG/DL (8.5-10.1) 8.2 MG/DL (8.5-10.1) Total Bilirubin 0.9 MG/DL (0.2-1.0) 0.9 MG/DL (0.2-1.0) Aspartate Amino Transf (AST/SGOT) 94 U/L (15-37) 64 U/L (15-37) Alanine Aminotransferase (ALT/SGPT) 16 U/L (12-78) 14 U/L (12-78) Alkaline Phosphatase 453 U/L (46-116) 400 U/L (46-116) Total Creatine Kinase 142 U/L (26-308) Creatine Kinase MB 1.6 NG/ML (0.0-3.6) Creatine Kinase MB Relative Index 1.1 Troponin I 0.000 ng/mL (0.000-0.056) Pro-B-Type Natriuretic Peptide 1581 pg/mL (0-125) Total Protein 7.2 G/DL (6.4-8.2) 6.7 G/DL (6.4-8.2) Albumin 1.0 G/DL (3.4-5.0) 1.0 G/DL (3.4-5.0) Globulin 6.2 g/dL 5.7 g/dL Albumin/Globulin Ratio 0.2 (1.0-2.7) 0.2 (1.0-2.7) Lipase 467 U/L (73-393) ASSESSMENT: history of stroke, respiratory failure, hypernatremia, acute on chronic renal failure, chronic encephalopathy, seizure disorder, pulmonary tuberculosis, and anemia possible sepsis, pneumonia PLAN care noted IV antibiotics respiratory care Ventilatory support SNF meds supportive care hypotonic fluids suction no wean oxygen therapy prognosis guarded impression, plan, and exam edited and reviewed in detail care discussed with Nakul Elena MD December 09, 2018 08:31
--- NOTE | 2018-12-09 08:31 | Pulmonology Progress Note ---
Subjective Allergies: Coded Allergies: No Known Allergies (Unverified , 01/27/17) Objective Last 24 Hour Vital Signs Date Time Temp Pulse Resp B/P (MAP) Pulse Ox O2 Delivery O2 Flow Rate FiO2 12/09/18 07:26 102 25 40 12/09/18 05:06 88 12 40 12/09/18 04:00 40 12/09/18 04:00 98.6 86 16 126/67 (86) 99 12/09/18 04:00 Mechanical Ventilator 12/09/18 04:00 90 12/09/18 03:11 79 14 40 12/09/18 01:19 79 14 40 12/09/18 00:00 40 12/09/18 00:00 97.5 69 15 103/50 (67) 100 12/09/18 00:00 72 12/09/18 00:00 Mechanical Ventilator 12/08/18 23:24 75 18 40 12/08/18 23:06 91 119/59 12/08/18 22:41 Mechanical Ventilator 12/08/18 21:46 83 12/08/18 20:52 78 18 40 12/08/18 20:18 74 19 111/52 100 Mechanical Ventilator 40 12/08/18 19:45 72 21 40 12/08/18 17:55 98.6 70 18 111/52 100 Mechanical Ventilator 40 12/08/18 17:49 77 20 Mechanical Ventilator 40 12/08/18 17:43 77 21 40 12/08/18 17:13 96.1 77 24 98 Trach Collar Intake and Output 12/08/18 12/09/18 18:59 06:59 Intake Total 1820.000 ml Output Total 325 ml Balance 1495.000 ml Intake IV Total 1560.000 ml Tube Feeding 260 ml Output Urine Total 325 ml Laboratory Tests 12/08/18 17:53: White Blood Count 10.6, Red Blood Count 3.02L, Hemoglobin 7.4L, Hematocrit 24.4L , Mean Corpuscular Volume 81, Mean Corpuscular Hemoglobin 24.5L, Mean Corpuscular Hemoglobin Concent 30.3L, Red Cell Distribution Width 17.6H, Platelet Count 440, Mean Platelet Volume 4.5L, Neutrophils (%) (Auto) , Lymphocytes (%) (Auto) , Monocytes (%) (Auto) , Eosinophils (%) (Auto) , Basophils (%) (Auto) , Differential Total Cells Counted 100, Neutrophils % ( Manual) 85H, Lymphocytes % (Manual) 8L, Monocytes % (Manual) 4, Eosinophils % ( Manual) 3, Basophils % (Manual) 0, Band Neutrophils 0, Platelet Estimate Adequate, Platelet Morphology Normal, Hypochromasia 1+, Anisocytosis 1+, Urine Color Brown, Urine Appearance Slightly cloudy, Urine pH 5, Urine Specific [place] 1.015, Urine Protein 2+H, Urine Glucose (UA) Negative, Urine Ketones 1+H , Urine Blood 4+H, Urine Nitrite Negative, Urine Bilirubin Negative, Urine Urobilinogen 4H, Urine Leukocyte Esterase 3+H, Urine RBC 5-10H, Urine WBC 2-4, Urine Squamous Epithelial Cells None, Urine Bacteria Few, Sodium Level 150H, Potassium Level 4.4, Chloride Level 115H, Carbon Dioxide Level 30, Anion Gap 5, Blood Urea Nitrogen 47H, Creatinine 0.7, Estimat Glomerular Filtration Rate , Glucose Level 176H, Lactic Acid Level 1.40, Calcium Level 8.5, Total Bilirubin 0.9, Aspartate Amino Transf (AST/SGOT) 94H, Alanine Aminotransferase (ALT/SGPT) 16, Alkaline Phosphatase 453H, Total Creatine Kinase 142, Creatine Kinase MB 1.6 , Creatine Kinase MB Relative Index 1.1, Troponin I 0.000, Pro-B-Type Natriuretic Peptide 1581H, Total Protein 7.2, Albumin 1.0L, Globulin 6.2, Albumin/Globulin Ratio 0.2L, Lipase 467H 12/09/18 03:25: White Blood Count 10.2, Red Blood Count 2.89L, Hemoglobin 7.1L, Hematocrit 23.8L , Mean Corpuscular Volume 82, Mean Corpuscular Hemoglobin 24.7L, Mean Corpuscular Hemoglobin Concent 30.0L, Red Cell Distribution Width 17.9H, Platelet Count 459H, Mean Platelet Volume 5.1L, Neutrophils (%) (Auto) , Lymphocytes (%) (Auto) , Monocytes (%) (Auto) , Eosinophils (%) (Auto) , Basophils (%) (Auto) , Neutrophils % (Manual) [Pending], Lymphocytes % (Manual) [Pending], Platelet Estimate [Pending], Platelet Morphology [Pending], Sodium Level 147H, Potassium Level 3.6, Chloride Level 113H, Carbon Dioxide Level 29, Anion Gap 5, Blood Urea Nitrogen 39H, Creatinine 0.7, Estimat Glomerular Filtration Rate , Glucose Level 137H, Calcium Level 8.2L, Total Bilirubin 0.9, Aspartate Amino Transf (AST/SGOT) 64H, Alanine Aminotransferase (ALT/SGPT) 14, Alkaline Phosphatase 400H, Total Protein 6.7, Albumin 1.0L, Globulin 5.7, Albumin/Globulin Ratio 0.2L Current Medications Medications (Trade) Dose Ordered Sig/Iram Route PRN Reason Start Time Stop Time Status Last Admin Dose Admin Acetaminophen (Tylenol) 650 mg DAILY ORAL 12/09/18 09:00 01/08/19 08:59 Acetaminophen (Tylenol) 650 mg Q4H PRN ORAL Mild Pain/Temp > 100.5 12/08/18 20:45 01/07/19 20:44 Amlodipine Besylate (Norvasc) 10 mg DAILY GT 12/09/18 09:00 01/08/19 08:59 Artificial Tears (Akwa-Tears) 2 drop Q4H PRN BOTH EYES DRY EYES 12/08/18 20:45 01/07/19 20:44 Ascorbic Acid (Vitamin C) 500 mg DAILY GT 12/09/18 09:00 01/08/19 08:59 Aspirin (ASA) 81 mg DAILY GT 12/09/18 09:00 01/08/19 08:59 Atorvastatin Calcium (Lipitor) 10 mg BEDTIME GT 12/08/18 21:00 01/07/19 20:59 12/08/18 22:12 Bisacodyl (Dulcolax) 10 mg DAILYPRN PRN RECTAL constipation 12/08/18 20:45 01/07/19 20:44 Dextrose 1,000 ml @ 75 mls/hr [id number] IV 12/08/18 21:00 01/07/19 20:59 12/08/18 22:12 Docusate Sodium (Colace) 100 mg DAILY ORAL 12/09/18 09:00 01/08/19 08:59 Doxazosin Mesylate (Cardura) 1 mg QHS GT 12/08/18 21:00 01/07/19 20:59 12/08/18 22:12 Heparin Sodium (Porcine) (Heparin 5000 units/ml) 5,000 units EVERY 12 HOURS SUBQ 12/09/18 09:00 01/08/19 08:59 Isoniazid (Inh) 300 mg DAILY GT 12/09/18 09:00 01/08/19 08:59 Lansoprazole (Prevacid) 30 mg Q12HR ORAL 12/08/18 21:00 01/07/19 20:59 12/08/18 22:12 Levetiracetam (Keppra) 750 mg Q12HR GT 12/08/18 21:00 01/07/19 20:59 12/08/18 22:12 Magnesium Hydroxide (Mom) 30 ml DAILYPRN PRN GT constipation 12/08/18 20:45 01/07/19 20:44 Metoprolol Tartrate (Lopressor) 50 mg EVERY 12 HOURS GT 12/08/18 21:00 01/07/19 20:59 12/08/18 23:06 Multivitamins Therapeutic (Therapeutic Multivitamin) 1 ea DAILY ORAL 12/09/18 09:00 01/08/19 08:59 Piperacillin Sod/ Tazobactam Sod 3.375 gm/Sodium Chloride 110 ml @ 27.5 mls/hr Q8H IVPB 12/09/18 03:00 12/16/18 02:59 12/09/18 02:33 Sodium Phosphate (Fleet's Sodium Phosl Enema) 133 ml QOD PRN RECTAL constipation 12/08/18 20:45 01/07/19 20:44 Vancomycin HCl (Vanco rx to dose) 1 ea DAILY PRN MISC Per rx protocol 12/08/18 21:00 01/07/19 20:59 Vancomycin HCl 500 mg/Dextrose 110 ml @ 110 mls/hr Q12H IVPB 12/09/18 10:00 12/14/18 09:59 Zinc Sulfate (Zinc Sulfate) 220 mg DAILY GT 12/09/18 09:00 01/08/19 08:59 Nakul Cisse MD December 09, 2018 08:31
[2018-12-09] MEDS: levETIRAcetam 500mg/5ml Liquid GT SCH ×2 (08:32→20:29)
[2018-12-09] MEDS: Heparin 5000 units/ml inj SUBQ SCH ×2 (08:33→20:31)
[2018-12-09] MEDS ORDERED: Acetaminophen 650mg/20.3ml ORAL SCH (09:00)
[2018-12-09] MEDS ORDERED: Docusate 100mg cap ORAL SCH (09:00)
--- NOTE | 2018-12-09 09:00 | NUR ---
NURSE NOTES: Dr. Vásquez seen and examined patient at bedside. Informed Dr. Vásquez that new Hgb level is 7.[address] Vásquez acknowledged. No new orders given at this time. Will continue to monitor patient.
[2018-12-09] MEDS: Vancomycin 500mg/D5W 110ml IVPB SCH ×4 (09:02→20:32)
--- NOTE | 2018-12-09 09:27 | General Progress Note ---
Assessment/Plan Problem List: (1) Aspiration pneumonia ICD Codes: J69.0 - Pneumonitis due to inhalation of food and vomit SNOMED: 927090693 (2) Hyperlipidemia ICD Codes: E78.5 - Hyperlipidemia, unspecified SNOMED: 94204201 (3) Dementia ICD Codes: F03.90 - Unspecified dementia without behavioral disturbance SNOMED: 11111215 (4) Sepsis ICD Codes: A41.9 - Sepsis, unspecified organism SNOMED: 36795215 (5) Encephalopathy ICD Codes: G93.40 - Encephalopathy, unspecified SNOMED: 00501488 (6) Respiratory distress ICD Codes: R06.03 - Acute respiratory distress SNOMED: 453631000 (7) Probable sepsis ICD Codes: A41.9 - Sepsis, unspecified organism SNOMED: 037563005 (8) Anemia ICD Codes: D64.9 - Anemia, unspecified SNOMED: 560342344 Status: stable, progressing Assessment/Plan: a/ sepsis pna pulm tb cva sz do anemia p/ iv abx follow up cultures ID eval tranfusse check stool ob vent support resp rx Subjective ROS Limited/Unobtainable: Yes Constitutional: Reports: malaise, weakness HEENT: Reports: no symptoms Cardiovascular: Reports: no symptoms Respiratory: Reports: cough, shortness of breath Gastrointestinal/Abdominal: Reports: difficulty swallowing Genitourinary: Reports: no symptoms Neurologic/Psychiatric: Reports: pre-existing deficit, seizure Endocrine: Reports: no symptoms Hematologic/Lymphatic: Reports: no symptoms Allergies: Coded Allergies: No Known Allergies (Unverified , 01/27/17) All Systems: reviewed and negative except above Subjective no events. on the vent. on abx. +low grade fever. tolerating feeds. low h/h noted. Objective Last 24 Hour Vital Signs Date Time Temp Pulse Resp B/P (MAP) Pulse Ox O2 Delivery O2 Flow Rate FiO2 12/09/18 09:09 84 23 40 12/09/18 08:29 106 141/68 12/09/18 08:29 106 141/68 12/09/18 08:00 40 12/09/18 08:00 100.3 106 22 141/68 (92) 100 12/09/18 08:00 Mechanical Ventilator 12/09/18 07:26 102 25 40 12/09/18 05:06 88 12 40 12/09/18 04:00 40 12/09/18 04:00 98.6 86 16 126/67 (86) 99 12/09/18 04:00 Mechanical Ventilator 12/09/18 04:00 90 12/09/18 03:11 79 14 40 12/09/18 01:19 79 14 40 12/09/18 00:00 40 12/09/18 00:00 97.5 69 15 103/50 (67) 100 12/09/18 00:00 72 12/09/18 00:00 Mechanical Ventilator 12/08/18 23:24 75 18 40 12/08/18 23:06 91 119/59 12/08/18 22:41 Mechanical Ventilator 12/08/18 21:46 83 12/08/18 20:52 78 18 40 12/08/18 20:18 74 19 111/52 100 Mechanical Ventilator 40 12/08/18 19:45 72 21 40 12/08/18 17:55 98.6 70 18 111/52 100 Mechanical Ventilator 40 12/08/18 17:49 77 20 Mechanical Ventilator 40 12/08/18 17:43 77 21 40 12/08/18 17:13 96.1 77 24 98 Trach Collar Intake and Output 12/08/18 12/09/18 18:59 06:59 Intake Total 1820.000 ml Output Total 325 ml Balance 1495.000 ml Intake IV Total 1560.000 ml Tube Feeding 260 ml Output Urine Total 325 ml Laboratory Tests 12/08/18 17:53: White Blood Count 10.6, Red Blood Count 3.02L, Hemoglobin 7.4L, Hematocrit 24.4L , Mean Corpuscular Volume 81, Mean Corpuscular Hemoglobin 24.5L, Mean Corpuscular Hemoglobin Concent 30.3L, Red Cell Distribution Width 17.6H, Platelet Count 440, Mean Platelet Volume 4.5L, Neutrophils (%) (Auto) , Lymphocytes (%) (Auto) , Monocytes (%) (Auto) , Eosinophils (%) (Auto) , Basophils (%) (Auto) , Differential Total Cells Counted 100, Neutrophils % ( Manual) 85H, Lymphocytes % (Manual) 8L, Monocytes % (Manual) 4, Eosinophils % ( Manual) 3, Basophils % (Manual) 0, Band Neutrophils 0, Platelet Estimate Adequate, Platelet Morphology Normal, Hypochromasia 1+, Anisocytosis 1+, Urine Color Brown, Urine Appearance Slightly cloudy, Urine pH 5, Urine Specific [place] 1.015, Urine Protein 2+H, Urine Glucose (UA) Negative, Urine Ketones 1+H , Urine Blood 4+H, Urine Nitrite Negative, Urine Bilirubin Negative, Urine Urobilinogen 4H, Urine Leukocyte Esterase 3+H, Urine RBC 5-10H, Urine WBC 2-4, Urine Squamous Epithelial Cells None, Urine Bacteria Few, Sodium Level 150H, Potassium Level 4.4, Chloride Level 115H, Carbon Dioxide Level 30, Anion Gap 5, Blood Urea Nitrogen 47H, Creatinine 0.7, Estimat Glomerular Filtration Rate , Glucose Level 176H, Lactic Acid Level 1.40, Calcium Level 8.5, Total Bilirubin 0.9, Aspartate Amino Transf (AST/SGOT) 94H, Alanine Aminotransferase (ALT/SGPT) 16, Alkaline Phosphatase 453H, Total Creatine Kinase 142, Creatine Kinase MB 1.6 , Creatine Kinase MB Relative Index 1.1, Troponin I 0.000, Pro-B-Type Natriuretic Peptide 1581H, Total Protein 7.2, Albumin 1.0L, Globulin 6.2, Albumin/Globulin Ratio 0.2L, Lipase 467H 12/09/18 03:25: White Blood Count 10.2, Red Blood Count 2.89L, Hemoglobin 7.1L, Hematocrit 23.8L , Mean Corpuscular Volume 82, Mean Corpuscular Hemoglobin 24.7L, Mean Corpuscular Hemoglobin Concent 30.0L, Red Cell Distribution Width 17.9H, Platelet Count 459H, Mean Platelet Volume 5.1L, Neutrophils (%) (Auto) , Lymphocytes (%) (Auto) , Monocytes (%) (Auto) , Eosinophils (%) (Auto) , Basophils (%) (Auto) , Neutrophils % (Manual) [Pending], Lymphocytes % (Manual) [Pending], Platelet Estimate [Pending], Platelet Morphology [Pending], Sodium Level 147H, Potassium Level 3.6, Chloride Level 113H, Carbon Dioxide Level 29, Anion Gap 5, Blood Urea Nitrogen 39H, Creatinine 0.7, Estimat Glomerular Filtration Rate , Glucose Level 137H, Calcium Level 8.2L, Total Bilirubin 0.9, Aspartate Amino Transf (AST/SGOT) 64H, Alanine Aminotransferase (ALT/SGPT) 14, Alkaline Phosphatase 400H, Total Protein 6.7, Albumin 1.0L, Globulin 5.7, Albumin/Globulin Ratio 0.2L Height (Feet): 5 Height (Inches): 7.00 Weight (Pounds): 134 General Appearance: WD/WN, lethargic, confused Neck: supple Cardiovascular: normal rate, regular rhythm Respiratory/Chest: chest wall non-tender, lungs clear, normal breath sounds, no respiratory distress Abdomen: normal bowel sounds, non tender, soft, no organomegaly Edema: no edema noted Arm (L), no edema noted Arm (R), no edema noted Leg (L), no edema noted Leg (R), no edema noted Pedal (L), no edema noted Pedal (R), no edema noted Generalized Neurologic: unresponsive, aphasia Jarrod Vásquez MD December 09, 2018 09:27
[2018-12-09] MEDS ORDERED: Isoniazid 300mg tab ORAL SCH (09:30)
[2018-12-09] MEDS ORDERED: Pyridoxine 50mg tab ORAL SCH (10:30)
--- NOTE | 2018-12-09 10:45 | NUR ---
NURSE NOTES: Called patient's via telephone number provided in facesheet. Explained to patient's Dr. Vásquez's order to transfuse 1 unite of PRBC. stated understand and that Dr. Vásquez has already discussed with her the need for patient to receive blood transfusion. Noted. This nurse and charge nurse, LALA Umaña witnessed consent and documented on blood transfusion consent sheet. Document placed in chart. Will continue to monitor patient.
[2018-12-09] MEDS ORDERED: Acetaminophen 650mg/20.3ml GT PRN (11:00)
--- NOTE | 2018-12-09 11:10 | Cardiology Report ---
APPROVED REPORT EKG Measurement Heart [id number] Normal sinus rhythm Early repolarization Normal ECG
--- NOTE | 2018-12-09 11:18 | Diagnostic Imaging Report ---
Indication: Dyspnea Comparison: 08/05/2018 A single view chest radiograph was obtained. Findings: Exam is limited by rotation. There is pulmonary vascular prominence present. Groundglass opacities are present at both lung bases. Heart appears borderline enlarged. There is a tracheostomy present. IMPRESSION: Similar findings to the prior occasion. Evidence of CHF/vascular congestion. Suspected bilateral pleural effusions
[2018-12-09 12:00] VITALS: BP 108/60
--- NOTE | 2018-12-09 12:55 | NUR ---
NURSE NOTES: Began blood transfusion of 1 unit of PRBC as per Dr. Vásquez's orders. Checked information with LALA Mejia at bedside. BP noted 108.63, HR 66, Temp 97.6 F pre transfusion. Will continue to monitor patient.
--- NOTE | 2018-12-09 13:57 | NUR ---
RD ASSESSMENT & RECOMMENDATIONS SEE CARE ACTIVITY FOR COMPLETE ASSESSMENT DAILY ESTIMATED NEEDS: Needs based on Underweight, TF [employer], Critical care, wounds/49.5kg 30-40 kcals/kg 1128-4429 total kcals 1.5-2 g protein/kg 74-99 g total protein 25-30 mL/kg 3453-9018 total fluid mLs NUTRITION DIAGNOSIS: 1) Swallowing difficulty r/t dysphagia, respiratory status as evidenced by pt is PEG dep, trach/vent dep. . 2) Increased kcal/prot needs R/T underweight status and wound healing as evidenced by low BMI under guidelines, noted w/ mod-severe generalized wasting, pt w/ multiple advanced wounds, WC eval pending CURRENT TF: Vital AF 1.2 @65ml /hr x20 hrs ENTERAL NUTRITION RECOMMENDATIONS: MAINTAIN Vital AF 1.2 @ 70ml/hr x20 hrs to provide 1400ml, 1680kcal, 105g prot, 809ml free water - Meets 100% est kcal and protein needs. - HOB over 30 degrees/ water flush per MD ADDITIONAL RECOMMENDATIONS: 1) Via GT add YOVANI w/ 4-6oz fluid BID for wound care 2) RECALIBRATE BED SCALE FOR ACCURATE CBW + weekly wts given underweight status 3) Check lytes daily, replete as needed 4) Monitor BGs closely, need for SSI .
--- NOTE | 2018-12-09 14:39 | NUR ---
NURSE NOTES:WOUND CARE NOTES: Pt presented on admission with multiple full thickness pressure injuries.Skin assessed under trach collar and no evidence of skin breakdown noted. Unstageable pressure injury with 100% yellow slough noted to L earlobe. Periwound skin tone is darker without erythema . No odor or exudate noted.(L00.3cm x (W)0.4cm. Hyperpigmentation from previous wound noted to R scapula. #2 Full thickness pressure injuries noted to thoracic spine.(#1Proximally)Full thickness pressure injury with 95% yellow slough at base of wound with erythematous borders.Periwound skin tone is darker without induration or fluctuance.No odor or exudate noted(L)2.3cm x (W)1.7cm. (#2 inferior)Full thickness pressure injury with 60% loose fibrinous slough,10% necrosis,30% red granulation. Edges adherent to base of wound and are flat. Small amt seropurulent ,non-odorous exudate noted. Additionally,scattered partial thickness wounds noted periwound. R of thoracic spine Small full thickness pressure injury with 100% yellow slough at base of wound. Edges adherent and flat. No odor or exudate noted. (L)0.6cm x (W)0.5cm. Full thickness pressure injury to lumbar spine. Base of wound with scattered slough ,10% necrosis. (+) maceration along borders. Darker skin tone without elevation in skin temp ,induration or fluctuance periwound.(L)4.5cm x (W)5cm. Full thickness pressure injury noted to R Iliac.Base of wound has 75% yellow slough,25% beefy red,(+) maceration along borders. Small amt non-odorous serous exudate noted.(L)4.8cm x (W)4cm.At base of R iliac pressure injury an area of darker skin tone that is indurated noted (L) 4.5cm x (W)6cm. Full thickness pressure injury L Iliac. 80% yellow/velazquez slough,20% erythematous. edges adherent and flat. Periwound withot erythema or induration. (L)3.3cm x (W)3.5cm. NO odor or exudate noted. Full thickness pressure injury noted to R trochanter with undermining. 80% yellow/velazquez slough,20% erythematous at base. Bone is palpable. (+) maceration along borders.Darker skin tone with induration periwound. No elevation in skin temp noted.Small amt non-odorous seropurulent exudate noted.(L)4.5cm x (W)6.3cmx (D)2.8cm, Undermining 12-12 by 2.6cm @9o'clock. DTPI noted to R hip.Base of indurated and black in colour.(L)2cm x (W)5.7cm. Full thickness sacral pressure injury.25% yellow slough,75%erythematous.Edges adherent and flat. (L)8.7cm x (W)5.2cm x (W)2cm. In addition to sacral wound, periwound noted to have multiple small wounds that are pink and dry. Partial thickness pressure injury posterior upper R thigh.Base of wound moist viable.Edges loose and darker than is normal skin tone.Periwound without induration or elevation in skin temp.Small amt serosanguineous exudate noted (L)1.5cm x (W)1.3cm. Full thickness pressure injury L trochanter.100% soft brown/black necrosis noted at base of wound. Erythematous borders. Small amt non-odorous brown exudate noted. Periwound indurated with darker skin tone. (L)4.5cm x (W)4.2cm. R heel boggy with non-blanchable erythema .Historical scar noted to R heel. DTPI L heel noted. Maroon discoloration with fluctuance centrally ,indurated borders noted.(L)3.5cm x (W)2cm. Tx.Plan:Cleanse wounds Thoracic spine,R and L of thoracic with Saline. Apply Therahoney.Apply Triad periwound. Cover each wound with Optifoam drsgs. Change every 3 days and prn. Cleanse wound R trochanter with Saline. Apply Therahoney. Apply Triad periwound. Cover with Optifoam drsg every 3 days and prn. Cleanse wound Lumbar spine with Saline. Apply Therahoney.Apply Triad paste periwound. Cover with Optifoam drsg every 3 days and prn. Cleanse wound L trochanter with Saline. Apply Therahoney.Apply Triad Paste periwound. Cover with Optifoam drsg every 3 days and prn. Cleanse wound posterior upper R thigh with saline.Apply Triad Paste .cover with Optifoam drsg .Change every 3 days and prn. Cleanse wounds R and L Iliac with Saline. Apply Therahoney.Apply Therahoney periwound. Cover with Optifoam drsg every 3 days and prn. Cleanse L earlobe with Saline. Apply Therahoney. Cover with Optifoam drsg. Change Daily and prn. Apply Cavilon Skin Barrier to R and L heels .Cover each heel with Optifoam drsgs. Change every 7 days and prn. Apply Cavilon Skin BArrier to Medial aspects of R and L knees. Cover each knee with Optifoam drsg. Change every 7 days and prn. Air Fluidized Mattress. Reposition at least every 2hours or as tolerated. Off-load heels with pillow. Addendum: 12/09/18 at 1618 by Lore Cronin LVN ADDENDUM TO TREATMENT ORDERS:Cleanse wound lumbar spine with Saline.Apply Therahoney.Apply Triad Paste periwound.Cover with Optifoam drsg. Change every 3 days and prn.
--- NOTE | 2018-12-09 15:32 | NUR ---
*-* INSURANCE *-* CLINCIALS AND REVIEWS HAVE BEEN FAXED TO: [facility] P:[phone] F:[phone]
[2018-12-09 16:00] VITALS: BP 114/55
[2018-12-09] MEDS: Piperacillin/Tazobactam 3.375 GM in NS 110 ML IVPB SCH ×2 (16:21→23:42)
--- NOTE | 2018-12-09 17:30 | Consultation ---
DATE OF CONSULTATION: 12/09/2018 INFECTIOUS DISEASES CONSULTATION CONSULTING PHYSICIAN: Sergio Urban M.D. REFERRING PHYSICIAN: Jarrod Vásquez M.D. REASON FOR CONSULTATION: Eddie out sepsis. HISTORY OF PRESENTING ILLNESS: This is a 73-year-old gentleman with history of stroke, seizure disorder, chronic respiratory failure, status post tracheostomy, pulmonary tuberculosis, multiple decubitus ulcers, who comes in with worsening leukocytosis as well as fevers. He was found to have a pneumonia and an Infectious Diseases consultation has been obtained for antibiotics. PAST MEDICAL HISTORY: 1. History of stroke. 2. Seizure disorder. 3. Respiratory failure status post tracheostomy. 4. Pulmonary tuberculosis. 5. Multiple sacral decubitus ulcers. 6. Status post G-tube placement. MEDICATIONS: As an inpatient, the patient is on rifampin, intravenous vancomycin, Tylenol, amlodipine, ascorbic acid, aspirin, docusate, isoniazid, multivitamin, zinc sulfate, subcutaneous heparin, Zosyn, atorvastatin, doxazosin, Prevacid, Keppra, metoprolol, Tylenol, Dulcolax, Artificial Tears, and milk of magnesia. ALLERGIES: No known drug allergies. SOCIAL HISTORY: No history of smoking, alcohol, or drug use. FAMILY HISTORY: Unknown. REVIEW OF SYSTEMS: Unable to obtain currently. PHYSICAL EXAMINATION: VITAL SIGNS: T-max of 100.3, temperature of 99.5, pulse of 84, respiratory rate of 23, blood pressure 141/68, and O2 saturation of 100%. HEENT: Pupils equally reactive to light and accommodation. Mouth appears clean without thrush. NECK: Supple. No adenopathy. No JVD. Tracheostomy site appears clean. CARDIOVASCULAR: Regular rate and rhythm. No murmurs. LUNGS: Clear to auscultation bilaterally. No crackles. No wheezes. ABDOMEN: Soft and nontender. G-tube site appears clean. EXTREMITIES: No cyanosis, no clubbing, no edema. SKIN: Right buttock ulcers noted. LABORATORY AND DIAGNOSTIC DATA: White count 10.2, hemoglobin 7.1, hematocrit 23.8, MCV 82, and platelet count of 459,000 with neutrophils of 80%. Sodium 147, potassium 3.6, chloride 113, bicarb 29, BUN 39, creatinine 0.7, glucose 137, and calcium 8.2. Total bilirubin 0.9. AST 64, ALT 14, and alkaline phosphatase 400. Total protein 6.7. Albumin of 1. Lipase of 467. UA, WBC showing 2 to 4 white cells. Chest x-ray showed bilateral infiltrates. ASSESSMENT: This is a 73-year-old gentleman with history of stroke, seizure disorder, respiratory failure, status post tracheostomy, who comes in with fevers and is found to have, 1. Bilateral pneumonia. 2. History of pulmonary tuberculosis, on therapy. 3. Seizure disorder. 4. CVA. PLAN: 1. Continue IV vancomycin and Zosyn. 2. Continue isoniazid and rifampin. 3. We will start the patient on pyridoxine. 4. We will order sputum for Gram stain and culture. 5. We will follow up cultures and adjust antibiotics accordingly. I would like to thank, Dr. Vásquez, for this consultation. Sergio Urban M.D. DR: JERAMY JOB#: [id number] CC: Jarrod Vásquez M.D.
--- NOTE | 2018-12-09 19:09 | NUR ---
HAND-OFF: Report given to LALA Brown.
--- NOTE | 2018-12-09 19:11 | NUR ---
NURSE NOTES: Received report from Federico Mora RN. Patient is obtunded, does not track but only responds to painful stimulation. Patient is trached to ventilator with settings as follows: AC 12, 500Tv, FiO2 of 40% and peep of 5. Patient has a Portex 7 that is dry and intact. Patient has a g-tube running Vital AF 1.2 at 60ml with goal of 70ml/hr. Patient has a Manzo catheter that is hanging below bladder, urine is light orange in color partly in due to medication patient is taking. Patient noted to have multiple pressure ulcers. Right hand 22G noted infusing D5W at 50ml/hr. Patient is cool to touch. Bed in lowest position and bed alarm in set to on. Patient is in Isolation precautions. Side rails are padded for seizure precautions. Labs, images, and reports read and noted. Will continue to monitor
--- NOTE | 2018-12-09 19:28 | Consultation ---
History of Present Illness General Chief Complaint: Abnormal Labs Present Illness HPI This is a 73 year old male with multiple medical comorbidities who is a trach/ peg dependent care home resident that presented with fevers and abnormal labs currently under medical care and management. Patient known to me from prior admissions and with multiple wounds that have been cared for prior. He presents with wounds requiring extensive care and management. Patient seen, chart reviewed, patient examined. Patient unable to participate in exam Allergies: Coded Allergies: No Known Allergies (Unverified , 01/27/17) Medication History Scheduled Acetaminophen 160MG/5ML* (Acetaminophen*), 20 ML GT DAILY, (Reported) Amikacin Sulfate (Amikin), 500 MG INH Q12HR@10,22 Amlodipine Besylate* (Amlodipine Besylate*), 10 MG GT DAILY, (Reported) Ascorbic Acid* (Ascorbic Acid*), 500 MG GT DAILY, (Reported) Aspirin* (Aspirin*), 81 MG GT DAILY, (Reported) Atorvastatin Calcium* (Lipitor*), 10 MG GT BEDTIME Docusate Sodium* (Colace*), 100 MG GT DAILY, (Reported) Doxazosin Mesylate* (Cardura*), 1 MG GT QHS, (Reported) Isoniazid (Isoniazid), 300 MG GT DAILY, (Reported) Lansoprazole* (Lansoprazole*), 30 MG ORAL Q12HR Levetiracetam* (Levetiracetam*), 750 MG GT BID, (Reported) Meropenem (Meropenem), 1 GM IVPB Q8H Metoprolol Tartrate* (Metoprolol Tartrate*), 50 MG GT EVERY 12 HOURS, (Reported) Multivitamin With Minerals (Multivitamins With Minerals*), 1 TAB GT DAILY, ( Reported) Protein Supplement (Promod), 30 ML GT DAILY, (Reported) Pyrazinamide (Pyrazinamide), 1,000 MG GT DAILY, (Reported) Pyridoxine Hcl (Vitamin B-6), 100 MG GT DAILY, (Reported) Rifampin (Rifampin), 600 MG GT DAILY, (Reported) Vancomycin In Dextrose,Iso-Osm (Vancomycin 750 Mg/150 Ml Bag), 750 MG IVPB Q12H Zinc Sulfate (Zinc Sulfate*), 220 MG GT DAILY, (Reported) Scheduled PRN Acetaminophen 160MG/5ML* (Acetaminophen*), 20 ML GT Q4HR PRN for Fever/Headache/ Mild Pain, (Reported) Bisacodyl (Dulcolax), 10 MG RC DAILY PRN for IF MOM INEFFECTIVE, (Reported) Dextran 70/Hypromellose (Artificial Tears Eye Drops*), 2 DROP BOTH EYES for DRY EYES, (Reported) Magnesium Hydroxide* (Milk Of Magnesia*), 30 ML GT DAILY PRN for IF DOCUSATE INEFECTIVE, (Reported) Na Phos,M-B/Na Phos,Di-Ba* (Fleet Enema*), 133 ML RECTAL PRN PRN for Q 2 DAYS, ( Reported) Patient History Limited by: medical condition History Provided By: Medical Record, PMD Healthcare decision maker Ruthie Bermudez Resuscitation status Full Code Advanced Directive on File Yes Past Medical/Surgical History Past Medical/Surgical History: (1) Aspiration pneumonia (2) Status epilepticus (3) Abnormal LFTs (4) UTI (urinary tract infection), bacterial (5) Toxic metabolic encephalopathy (6) Dyspnea (7) Vitamin B 12 deficiency (8) HTN (hypertension) (9) Encephalopathy acute (10) BPH (benign prostatic hyperplasia) (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 (12) decu (13) Decubitus ulcer (14) Dehydration (15) Hypernatremia (16) Anemia (17) Dementia (18) Respiratory distress (19) Hyperlipidemia (20) Aspiration pneumonia (21) Encephalopathy (22) Sepsis (23) Probable sepsis Review of Systems ROS Narrative cannot obtain given medical condition Physical Exam General Appearance: no apparent distress Lines, tubes and drains: peripheral HEENT: mucous membranes moist Neck: normal inspection, trach Respiratory/Chest: no respiratory distress, no accessory muscle use, decreased breath sounds, on vent Cardiovascular/Chest: no JVD, tachycardia Abdomen: no organomegaly, no mass, decreased bowel sounds, feeding tube Extremities: other Skin Exam: other Neurologic: unresponsiveness Last 24 Hour Vital Signs Date Time Temp Pulse Resp B/P (MAP) Pulse Ox O2 Delivery O2 Flow Rate FiO2 12/09/18 16:59 65 17 40 12/09/18 16:00 97.7 66 20 114/55 (74) 100 12/09/18 16:00 Mechanical Ventilator 12/09/18 16:00 40 12/09/18 16:00 64 12/09/18 15:08 63 18 40 12/09/18 13:20 83 15 40 12/09/18 12:00 98.0 63 22 108/60 (76) 100 12/09/18 12:00 61 12/09/18 12:00 40 12/09/18 12:00 Mechanical Ventilator 12/09/18 10:36 88 21 40 12/09/18 09:21 99.5 12/09/18 09:09 84 23 40 12/09/18 09:01 99.5 12/09/18 08:29 106 141/68 12/09/18 08:29 106 141/68 12/09/18 08:00 40 12/09/18 08:00 108 12/09/18 08:00 100.3 106 22 141/68 (92) 100 12/09/18 08:00 Mechanical Ventilator 12/09/18 07:26 102 25 40 12/09/18 05:06 88 12 40 12/09/18 04:00 40 12/09/18 04:00 98.6 86 16 126/67 (86) 99 12/09/18 04:00 Mechanical Ventilator 12/09/18 04:00 90 12/09/18 03:11 79 14 40 12/09/18 01:19 79 14 40 12/09/18 00:00 40 12/09/18 00:00 97.5 69 15 103/50 (67) 100 12/09/18 00:00 72 12/09/18 00:00 Mechanical Ventilator 12/08/18 23:24 75 18 40 12/08/18 23:06 91 119/59 12/08/18 22:41 Mechanical Ventilator 12/08/18 21:46 83 12/08/18 20:52 78 18 40 12/08/18 20:18 74 19 111/52 100 Mechanical Ventilator 40 12/08/18 19:45 72 21 40 Intake and Output 12/08/18 12/09/18 19:00 07:00 Intake Total 1820.000 ml Output Total 325 ml Balance 1495.000 ml IV Total 1560.000 ml Tube Feeding 260 ml Output Urine Total 325 ml Laboratory Tests Test 12/09/18 03:25 White Blood Count 10.2 K/UL (4.8-10.8) Red Blood Count 2.89 M/UL (4.70-6.10) L Hemoglobin 7.1 G/DL (14.2-18.0) L Hematocrit 23.8 % (42.0-52.0) L Mean Corpuscular Volume 82 FL (80-99) Mean Corpuscular Hemoglobin 24.7 PG (27.0-31.0) L Mean Corpuscular Hemoglobin Concent 30.0 G/DL (32.0-36.0) L Red Cell Distribution Width 17.9 % (11.6-14.8) H Platelet Count 459 K/UL (150-450) H Mean Platelet Volume 5.1 FL (6.5-10.1) L Neutrophils (%) (Auto) % (45.0-75.0) Lymphocytes (%) (Auto) % (20.0-45.0) Monocytes (%) (Auto) % (1.0-10.0) Eosinophils (%) (Auto) % (0.0-3.0) Basophils (%) (Auto) % (0.0-2.0) Differential Total Cells Counted 100 Neutrophils % (Manual) 80 % (45-75) H Lymphocytes % (Manual) 9 % (20-45) L Monocytes % (Manual) 8 % (1-10) Eosinophils % (Manual) 3 % (0-3) Basophils % (Manual) 0 % (0-2) Band Neutrophils 0 % (0-8) Platelet Estimate Adequate Platelet Morphology Normal Hypochromasia 3+ Anisocytosis 1+ Sodium Level 147 MMOL/L (136-145) H Potassium Level 3.6 MMOL/L (3.5-5.1) Chloride Level 113 MMOL/L (98-107) H Carbon Dioxide Level 29 MMOL/L (21-32) Anion Gap 5 mmol/L (5-15) Blood Urea Nitrogen 39 mg/dL (7-18) H Creatinine 0.7 MG/DL (0.55-1.30) Estimat Glomerular Filtration Rate mL/min (>60) Glucose Level 137 MG/DL (74-106) H Calcium Level 8.2 MG/DL (8.5-10.1) L Total Bilirubin 0.9 MG/DL (0.2-1.0) Aspartate Amino Transf (AST/SGOT) 64 U/L (15-37) H Alanine Aminotransferase (ALT/SGPT) 14 U/L (12-78) Alkaline Phosphatase 400 U/L (46-116) H Total Protein 6.7 G/DL (6.4-8.2) Albumin 1.0 G/DL (3.4-5.0) L Globulin 5.7 g/dL Albumin/Globulin Ratio 0.2 (1.0-2.7) L Height (Feet): 5 Height (Inches): 7.00 Weight (Pounds): 134 Medications Current Medications Medications (Trade) Dose Ordered Sig/Iram Route PRN Reason Start Time Stop Time Status Last Admin Dose Admin Acetaminophen (Tylenol) 650 mg DAILY GT 12/10/18 09:00 01/08/19 08:59 Acetaminophen (Tylenol) 650 mg Q4H PRN GT Mild Pain/Temp > 100.5 12/09/18 11:00 01/07/19 20:44 Amlodipine Besylate (Norvasc) 10 mg DAILY GT 12/09/18 09:00 01/08/19 08:59 12/09/18 08:29 Artificial Tears (Akwa-Tears) 2 drop Q4H PRN BOTH EYES DRY EYES 12/08/18 20:45 01/07/19 20:44 Ascorbic Acid (Vitamin C) 500 mg DAILY GT 12/09/18 09:00 01/08/19 08:59 12/09/18 08:29 Aspirin (ASA) 81 mg DAILY GT 12/09/18 09:00 01/08/19 08:59 12/09/18 08:28 Atorvastatin Calcium (Lipitor) 10 mg BEDTIME GT 12/08/18 21:00 01/07/19 20:59 12/08/18 22:12 Bisacodyl (Dulcolax) 10 mg DAILYPRN PRN RECTAL constipation 12/08/18 20:45 01/07/19 20:44 Dextrose 1,000 ml @ 50 mls/hr Q20H IV 12/09/18 21:00 01/08/19 20:59 Docusate Sodium (Colace) 100 mg DAILY GT 12/10/18 09:00 01/08/19 08:59 Doxazosin Mesylate (Cardura) 1 mg QHS GT 12/08/18 21:00 01/07/19 20:59 12/08/18 22:12 Heparin Sodium (Porcine) (Heparin 5000 units/ml) 5,000 units EVERY 12 HOURS SUBQ 5/7/19 09:00 01/08/19 08:59 Isoniazid (Inh) 300 mg DAILY GT 12/09/18 09:00 01/08/19 08:59 12/09/18 08:29 Lansoprazole (Prevacid) 30 mg Q12HR GT 12/09/18 21:00 01/07/19 20:59 Levetiracetam (Keppra) 750 mg Q12HR GT 12/08/18 21:00 01/07/19 20:59 12/09/18 08:32 Magnesium Hydroxide (Mom) 30 ml DAILYPRN PRN GT constipation 12/08/18 20:45 01/07/19 20:44 Metoprolol Tartrate (Lopressor) 50 mg EVERY 12 HOURS GT 12/08/18 21:00 01/07/19 20:59 12/09/18 08:29 Multivitamins Therapeutic (Therapeutic Multivitamin) 1 ea DAILY ORAL 12/09/18 09:00 01/08/19 08:59 12/09/18 08:30 Piperacillin Sod/ Tazobactam Sod 3.375 gm/Sodium Chloride 110 ml @ 27.5 mls/hr Q8H IVPB 12/09/18 16:00 12/16/18 15:59 12/09/18 16:21 Pyridoxine HCl (Vitamin B6) 50 mg DAILY GT 12/10/18 09:00 01/08/19 10:29 Rifampin (Rifadin) 600 mg DAILY GT 12/09/18 10:30 01/08/19 10:29 12/09/18 10:51 Sodium Phosphate (Fleet's Sodium Phosl Enema) 133 ml QOD PRN RECTAL constipation 12/08/18 20:45 01/07/19 20:44 Vancomycin HCl (Vanco rx to dose) 1 ea DAILY PRN MISC Per rx protocol 12/08/18 21:00 01/07/19 20:59 Vancomycin HCl 500 mg/Dextrose 110 ml @ 110 mls/hr Q12H IVPB 12/09/18 10:00 12/14/18 09:59 12/09/18 09:02 Zinc Sulfate (Zinc Sulfate) 220 mg DAILY GT 12/09/18 09:00 01/08/19 08:59 12/09/18 08:29 Assessment/Plan Problem List: (1) Decubitus ulcer Assessment & Plan: Pt presented on admission with multiple full thickness pressure injuries. Skin assessed under trach collar and no evidence of skin breakdown noted. Unstageable pressure injury with 100% yellow slough noted to L earlobe. Periwound skin tone is darker without erythema . No odor or exudate noted.( L00.3cm x (W)0.4cm. Hyperpigmentation from previous wound noted to R scapula noted and stable/ healing. 2x Full thickness pressure injuries noted to thoracic spine.(#1Proximally)Full thickness pressure injury with 95% yellow slough at base of wound with erythematous borders.Periwound skin tone is darker without induration or fluctuance.No odor or exudate noted(L)2.3cm x (W)1.7cm. (#2 inferior)Full thickness pressure injury with 60% loose fibrinous slough,10% necrosis,30% red granulation. Edges adherent to base of wound and are flat. Small amt seropurulent ,non-odorous exudate noted. Additionally,scattered partial thickness wounds noted periwound. R of thoracic spine Small full thickness pressure injury with 100% yellow slough at base of wound. Edges adherent and flat. No odor or exudate noted. (L) 0.6cm x (W)0.5cm. Full thickness pressure injury to lumbar spine. Base of wound with scattered slough ,10% necrosis. (+) maceration along borders. Darker skin tone without elevation in skin temp ,induration or fluctuance periwound.(L)4.5cm x (W)5cm. Full thickness pressure injury noted to R Iliac.Base of wound has 75% yellow slough,25% beefy red,(+) maceration along borders. Small amt non-odorous serous exudate noted.(L)4.8cm x (W)4cm.At base of R iliac pressure injury an area of darker skin tone that is indurated noted (L) 4.5cm x (W)6cm. Full thickness pressure injury L Iliac. 80% yellow/velazquez slough,20% erythematous. edges adherent and flat. Periwound withot erythema or induration. (L)3.3cm x (W)3.5cm. NO odor or exudate noted. Full thickness pressure injury noted to R trochanter with undermining. 80% yellow/velazquez slough,20% erythematous at base. Bone is palpable. (+) maceration along borders.Darker skin tone with induration periwound. No elevation in skin temp noted.Small amt non-odorous seropurulent exudate noted.(L)4.5cm x (W) 6.3cmx (D)2.8cm, Undermining 12-12 by 2.6cm @9o'clock. DTPI noted to R hip.Base of indurated and black in colour.(L)2cm x (W)5.7cm. Full thickness sacral pressure injury.25% yellow slough,75%erythematous.Edges adherent and flat. (L)8.7cm x (W)5.2cm x (W)2cm. In addition to sacral wound, periwound noted to have multiple small wounds that are pink and dry. Partial thickness pressure injury posterior upper R thigh.Base of wound moist viable.Edges loose and darker than is normal skin tone.Periwound without induration or elevation in skin temp.Small amt serosanguineous exudate noted (L) 1.5cm x (W)1.3cm. Full thickness pressure injury L trochanter.100% soft brown/black necrosis noted at base of wound. Erythematous borders. Small amt non-odorous brown exudate noted. Periwound indurated with darker skin tone. (L)4.5cm x (W)4.2cm. R heel boggy with non-blanchable erythema .Historical scar noted to R heel. DTPI L heel noted. Maroon discoloration with fluctuance centrally ,indurated borders noted.(L)3.5cm x (W)2cm. Tx.Plan: Cleanse wounds Thoracic spine,R and L of thoracic with Saline. Apply Therahoney.Apply Triad periwound. Cover each wound with Optifoam drsgs. Change every 3 days and prn. Cleanse wound R trochanter with Saline. Apply Therahoney. Apply Triad periwound. Cover with Optifoam drsg every 3 days and prn. Cleanse wound Lumbar spine with Saline. Apply Therahoney.Apply Triad paste periwound. Cover with Optifoam drsg every 3 days and prn. Cleanse wound L trochanter with Saline. Apply Therahoney.Apply Triad Paste periwound. Cover with Optifoam drsg every 3 days and prn. Cleanse wound posterior upper R thigh with saline.Apply Triad Paste .cover with Optifoam drsg .Change every 3 days and prn. Cleanse wounds R and L Iliac with Saline. Apply Therahoney.Apply Therahoney periwound. Cover with Optifoam drsg every 3 days and prn. Cleanse L earlobe with Saline. Apply Therahoney. Cover with Optifoam drsg. Change Daily and prn. Apply Cavilon Skin Barrier to R and L heels .Cover each heel with Optifoam drsgs. Change every 7 days and prn. Apply Cavilon Skin BArrier to Medial aspects of R and L knees. Cover each knee with Optifoam drsg. Change every 7 days and prn. Air Fluidized Mattress. Reposition at least every 2hours or as tolerated. Off-load heels with pillow. ICD Codes: L89.90 - Pressure ulcer of unspecified site, unspecified stage SNOMED: 606257541 (2) Sepsis Assessment & Plan: On Abx CXR Monitor labs ICD Codes: A41.9 - Sepsis, unspecified organism SNOMED: 66986897 (3) Dehydration Assessment & Plan: On IV fluids okay to resume tube feeds ICD Codes: E86.0 - Dehydration SNOMED: 63675634 (4) Respiratory distress Assessment & Plan: on vent via trach cont w/ breathing treatments ICD Codes: R06.03 - Acute respiratory distress SNOMED: 981109683 (5) Abnormal LFTs Assessment & Plan: alk phos elevated trend for now US ordered ICD Codes: R94.5 - Abnormal results of liver function studies SNOMED: 435531587 Zev Candelaria December 09, 2018 19:28
[2018-12-09 20:00] VITALS: BP 130/65
--- NOTE | 2018-12-09 20:00 | NUR ---
NURSE NOTES: Patient was repositioned and given oral care. Patient is slightly warm top touch but remains afebrile, temperature is 98.0F. BP 130/78 and Spo2 of 100%. Patient was also suctioned, hypoactive gag reflexes noted. Applied pillows to keep heels off loaded. New D5W bag hung. no acute distress at this time. endoscopy technician called to inform me to keep patient NPO after midnight for an ultrasound of the abdomen tomorrow morning.
[2018-12-09] MEDS: Doxazosin 1mg Tab GT SCH (20:27)
[2018-12-09] MEDS: Acetaminophen 650mg/20.3ml GT SCH (20:28)
--- NOTE | 2018-12-09 22:00 | NUR ---
NURSE NOTES: Patient repositioned and adjusted pillows. Suctioned patient and flushed G-tube with 60ml H2O. HR is 68 SR. No acute distress at this time. No BM yet. Manzo remains below bladder. Feeds ongoing. Edgard and prosource provided. Will continue to monitor. Family at bedside with patient. Updated them on patients plan of care.
[2018-12-10] VITALS: BP 129/70
--- NOTE | 2018-12-10 | NUR ---
NURSE NOTES: Patient was repositioned and adjusted pillows to keep heels off loaded. Patient has been placed NPO for AM US abdomen. Patient given H2O flush. Patient is warm to touch but afebrile. Patients temperature is 97.7 and BP is 129/70. Patient given oral care and suctioned. Maintenance fluids remains ongoing. IV lines remains working patently. No acute distress at this time.
--- NOTE | 2018-12-10 02:00 | NUR ---
NURSE NOTES: Patient repositioned, given oral care and suctioned. Maintenance fluids ongoing. Patient NPO for morning abdomen ultrasound. NAD, no new changes. Will continue to monitor.
[2018-12-10 04:00] VITALS: BP 116/55
--- NOTE | 2018-12-10 04:00 | NUR ---
NURSE NOTES: Patient repositioned and adjusted pillows. No acute changes, Patient kept clean and dry. Patient has not had BM yet. Maintenance fluids ongoing. Blood drawn and sent to lab. Will continue to monitor.
[2018-12-10 05:24] LABS: INR 1.2 (0.9-1.1)
[2018-12-10 05:35] LABS: HEMATOCRIT 24.8 % (42.0-52.0); HEMOGLOBIN 7.6 G/DL (14.2-18.0); MEAN CORPUSCULAR VOLUME 83 FL (80-99); PLATELET COUNT 419 K/UL (150-450); RED BLOOD COUNT 2.99 M/UL (4.70-6.10); RED CELL DISTRIBUTION WIDTH 17.6 % (11.6-14.8); WHITE BLOOD COUNT 9.9 K/UL (4.8-10.8)
[2018-12-10 05:40] LABS: ALANINE AMINOTRANSFERASE 8 U/L (12-78); ALBUMIN 0.9 G/DL (3.4-5.0); ALBUMIN/GLOBULIN RATIO 0.2 (1.0-2.7); ALKALINE PHOSPHATASE 401 U/L (46-116); AMYLASE 74 U/L (25-115); ANION GAP 6 mmol/L (5-15); ASPARTATE AMINO TRANSFERASE 37 U/L (15-37); BILIRUBIN,TOTAL 0.6 MG/DL (0.2-1.0); BLOOD UREA NITROGEN 38 mg/dL (7-18); CALCIUM 8.5 MG/DL (8.5-10.1); CARBON DIOXIDE 29 MMOL/L (21-32); CHLORIDE 114 MMOL/L (98-107); CREATININE 0.7 MG/DL (0.55-1.30); POTASSIUM 3.4 MMOL/L (3.5-5.1); SODIUM 149 MMOL/L (136-145)
--- NOTE | 2018-12-10 06:00 | NUR ---
NURSE NOTES: Patient given sponge bath. Wound care given and new dressings applied. Patient has not had BM yet overnight. Patients has remained stable and afebrile. No acute changes overnight. Patient remains NPO for morning US of the abdomen. Repositioned and suctioned patient. IV lines remains patent ans intact.
[2018-12-10 08:00] VITALS: BP 120/53
--- NOTE | 2018-12-10 08:23 | General Progress Note ---
Assessment/Plan Problem List: (1) Aspiration pneumonia ICD Codes: J69.0 - Pneumonitis due to inhalation of food and vomit SNOMED: 485963884 (2) Hyperlipidemia ICD Codes: E78.5 - Hyperlipidemia, unspecified SNOMED: 08517521 (3) Dementia ICD Codes: F03.90 - Unspecified dementia without behavioral disturbance SNOMED: 85315781 (4) Sepsis ICD Codes: A41.9 - Sepsis, unspecified organism SNOMED: 87118627 (5) Encephalopathy ICD Codes: G93.40 - Encephalopathy, unspecified SNOMED: 01687089 (6) Respiratory distress ICD Codes: R06.03 - Acute respiratory distress SNOMED: 009113328 (7) Probable sepsis ICD Codes: A41.9 - Sepsis, unspecified organism SNOMED: 067731375 (8) Anemia ICD Codes: D64.9 - Anemia, unspecified SNOMED: 724733956 Status: stable, progressing Assessment/Plan: a/ sepsis pna pulm tb cva sz do anemia p/ iv abx follow up cultures ID eval appreciated tranfuse check stool ob vent support resp rx replace k d.w poc x 5 mins Subjective ROS Limited/Unobtainable: Yes Constitutional: Reports: malaise, weakness HEENT: Reports: no symptoms Cardiovascular: Reports: no symptoms Respiratory: Reports: no symptoms Gastrointestinal/Abdominal: Reports: difficulty swallowing Genitourinary: Reports: no symptoms Neurologic/Psychiatric: Reports: pre-existing deficit, seizure Endocrine: Reports: no symptoms Hematologic/Lymphatic: Reports: anemia Allergies: Coded Allergies: No Known Allergies (Unverified , 01/27/17) All Systems: reviewed and negative except above Subjective no events. still anemic. no bleeding. low k. remains on abx Objective Last 24 Hour Vital Signs Date Time Temp Pulse Resp B/P (MAP) Pulse Ox O2 Delivery O2 Flow Rate FiO2 12/10/18 07:21 70 20 40 12/10/18 05:02 72 17 40 12/10/18 04:00 97.3 60 18 116/55 (75) 100 12/10/18 04:00 40 12/10/18 04:00 Mechanical Ventilator 12/10/18 04:00 65 12/10/18 03:16 64 16 40 12/10/18 01:23 65 22 40 12/10/18 00:00 79 12/10/18 00:00 Mechanical Ventilator 12/10/18 00:00 40 12/10/18 00:00 97.9 76 16 129/70 (89) 100 12/09/18 23:34 66 21 40 12/09/18 21:39 71 18 40 12/09/18 20:27 92 130/65 12/09/18 20:00 Mechanical Ventilator 12/09/18 20:00 98.0 92 18 130/65 (86) 100 12/09/18 20:00 89 12/09/18 20:00 40 12/09/18 19:27 72 18 40 12/09/18 16:59 65 17 40 12/09/18 16:00 97.7 66 20 114/55 (74) 100 12/09/18 16:00 Mechanical Ventilator 12/09/18 16:00 40 12/09/18 16:00 64 12/09/18 15:08 63 18 40 12/09/18 13:20 83 15 40 12/09/18 12:00 98.0 63 22 108/60 (76) 100 12/09/18 12:00 61 12/09/18 12:00 40 12/09/18 12:00 Mechanical Ventilator 12/09/18 10:36 88 21 40 12/09/18 09:21 99.5 12/09/18 09:09 84 23 40 12/09/18 09:01 99.5 12/09/18 08:29 106 141/68 12/09/18 08:29 106 141/68 Intake and Output 12/09/18 12/10/18 18:59 06:59 Intake Total 910 ml 1350.0 ml Output Total 800 ml 500 ml Balance 110 ml 850.0 ml Intake Free Water 300 ml 100 ml IV Total 110 ml 830.0 ml Tube Feeding 500 ml 420 ml Output Urine Total 800 ml 500 ml # Bowel Movements 1 Laboratory Tests 12/10/18 03:25: White Blood Count 9.9, Red Blood Count 2.99L, Hemoglobin 7.6L, Hematocrit 24.8L , Mean Corpuscular Volume 83, Mean Corpuscular Hemoglobin 25.5L, Mean Corpuscular Hemoglobin Concent 30.8L, Red Cell Distribution Width 17.6H, Platelet Count 419, Mean Platelet Volume 5.3L, Neutrophils (%) (Auto) , Lymphocytes (%) (Auto) , Monocytes (%) (Auto) , Eosinophils (%) (Auto) , Basophils (%) (Auto) , Neutrophils % (Manual) [Pending], Lymphocytes % (Manual) [Pending], Platelet Estimate [Pending], Platelet Morphology [Pending], Prothrombin Time 12.2H, Prothromb Time International Ratio 1.2H, Activated Partial Thromboplast Time 36H, Sodium Level 149H, Potassium Level 3.4L, Chloride Level 114H, Carbon Dioxide Level 29, Anion Gap 6, Blood Urea Nitrogen 38H, Creatinine 0.7, Estimat Glomerular Filtration Rate , Glucose Level 113H, Calcium Level 8.5, Total Bilirubin 0.6, Aspartate Amino Transf (AST/SGOT) 37, Alanine Aminotransferase (ALT/SGPT) 8L, Alkaline Phosphatase 401H, Total Protein 6.6, Albumin 0.9L, Globulin 5.7, Albumin/Globulin Ratio 0.2L, Amylase Level 74, Lipase 310 Height (Feet): 5 Height (Inches): 7.00 Weight (Pounds): 118 General Appearance: WD/WN, lethargic, confused Neck: supple Cardiovascular: normal rate, regular rhythm Respiratory/Chest: chest wall non-tender, lungs clear, normal breath sounds, no respiratory distress Abdomen: normal bowel sounds, non tender, soft, no organomegaly Edema: no edema noted Arm (L), no edema noted Arm (R), no edema noted Leg (L), no edema noted Leg (R), no edema noted Pedal (L), no edema noted Pedal (R), no edema noted Generalized Neurologic: unresponsive, aphasia Jarrod Vásquez MD December 10, 2018 08:23
--- NOTE | 2018-12-10 08:24 | NUR ---
NURSE NOTES: Received patient from LALA Brown. patient is obtunded and nonverbal, but is responsive to painful stimuli. Patient is asymptomatic of any distress. He is currently in sinus rhythm. His ventilator settings are as follows: Portex: 7, AC: 12, TV: 500, FiO2: 40, and PEEP: 5. Patient has a patent G-tube in place, and is currently NPO due to a scheduled abdominal ultrasound for today. Patient has a patent mcintyre catheter in place; the bag is hanging below the bladder and is off the floor. The urine is reddish orange due to patient's current medications. Patient has a patent and intact peripheral [address] on the right hand. Bed in lowest position, padded siderails up X3, and call light is within reach. Will continue to monitor.
[2018-12-10] MEDS ORDERED: Fleet's Enema 133ml RECTAL PRN (09:15)
[2018-12-10] MEDS: Zinc Sulfate 220mg cap GT SCH (09:34)
[2018-12-10] MEDS: Multivitamin w/Minerals tab ORAL SCH (09:34)
[2018-12-10] MEDS: Aspirin Baby 81mg GT SCH (09:34)
--- NOTE | 2018-12-10 09:34 | Pulmonology Progress Note ---
Assessment/Plan Assessment/Plan ASSESSMENT: history of stroke, respiratory failure, hypernatremia, acute on chronic renal failure, chronic encephalopathy, seizure disorder, pulmonary tuberculosis, and anemia possible sepsis, pneumonia PLAN care noted and cultures reviewed IV antibiotics respiratory care Ventilatory support as is no wean SNF meds supportive care hypotonic fluids suction no wean monitor imaging and labs support as needed oxygen therapy prognosis guarded impression, plan, and exam edited and reviewed in detail care discussed with RN Subjective ROS Limited/Unobtainable: Yes Allergies: Coded Allergies: No Known Allergies (Unverified , 01/27/17) Subjective care noted on vent bed bound Objective Last 24 Hour Vital Signs Date Time Temp Pulse Resp B/P (MAP) Pulse Ox O2 Delivery O2 Flow Rate FiO2 12/10/18 09:22 76 18 40 12/10/18 08:00 40 12/10/18 08:00 Mechanical Ventilator 12/10/18 08:00 100.0 74 18 120/53 (75) 100 12/10/18 08:00 78 12/10/18 07:21 70 20 40 12/10/18 05:02 72 17 40 12/10/18 04:00 97.3 60 18 116/55 (75) 100 12/10/18 04:00 40 12/10/18 04:00 Mechanical Ventilator 12/10/18 04:00 65 12/10/18 03:16 64 16 40 12/10/18 01:23 65 22 40 12/10/18 00:00 79 12/10/18 00:00 Mechanical Ventilator 12/10/18 00:00 40 12/10/18 00:00 97.9 76 16 129/70 (89) 100 12/09/18 23:34 66 21 40 12/09/18 21:39 71 18 40 12/09/18 20:27 92 130/65 12/09/18 20:00 Mechanical Ventilator 12/09/18 20:00 98.0 92 18 130/65 (86) 100 12/09/18 20:00 89 12/09/18 20:00 40 12/09/18 19:27 72 18 40 12/09/18 16:59 65 17 40 12/09/18 16:00 97.7 66 20 114/55 (74) 100 12/09/18 16:00 Mechanical Ventilator 12/09/18 16:00 40 12/09/18 16:00 64 12/09/18 15:08 63 18 40 12/09/18 13:20 83 15 40 12/09/18 12:00 98.0 63 22 108/60 (76) 100 12/09/18 12:00 61 12/09/18 12:00 40 12/09/18 12:00 Mechanical Ventilator 12/09/18 10:36 88 21 40 Intake and Output 12/09/18 12/10/18 18:59 06:59 Intake Total 910 ml 1350.0 ml Output Total 800 ml 500 ml Balance 110 ml 850.0 ml Intake Free Water 300 ml 100 ml IV Total 110 ml 830.0 ml Tube Feeding 500 ml 420 ml Output Urine Total 800 ml 500 ml # Bowel Movements 1 Objective on vent chronically ill trach clear breath sounds bilaterally without rhonchi or wheeze [id number] without MRG NABS nontender no HSM; Gt no CCE; contractures nonfocal Microbiology Date/Time Source Procedure Growth Status 12/09/18 10:00 Sputum Gram Stain - Final Resulted 12/09/18 10:00 Sputum Sputum Culture Pending Resulted Laboratory Tests 12/10/18 03:25: White Blood Count 9.9, Red Blood Count 2.99L, Hemoglobin 7.6L, Hematocrit 24.8L , Mean Corpuscular Volume 83, Mean Corpuscular Hemoglobin 25.5L, Mean Corpuscular Hemoglobin Concent 30.8L, Red Cell Distribution Width 17.6H, Platelet Count 419, Mean Platelet Volume 5.3L, Neutrophils (%) (Auto) , Lymphocytes (%) (Auto) , Monocytes (%) (Auto) , Eosinophils (%) (Auto) , Basophils (%) (Auto) , Neutrophils % (Manual) [Pending], Lymphocytes % (Manual) [Pending], Platelet Estimate [Pending], Platelet Morphology [Pending], Prothrombin Time 12.2H, Prothromb Time International Ratio 1.2H, Activated Partial Thromboplast Time 36H, Sodium Level 149H, Potassium Level 3.4L, Chloride Level 114H, Carbon Dioxide Level 29, Anion Gap 6, Blood Urea Nitrogen 38H, Creatinine 0.7, Estimat Glomerular Filtration Rate , Glucose Level 113H, Calcium Level 8.5, Total Bilirubin 0.6, Aspartate Amino Transf (AST/SGOT) 37, Alanine Aminotransferase (ALT/SGPT) 8L, Alkaline Phosphatase 401H, Total Protein 6.6, Albumin 0.9L, Globulin 5.7, Albumin/Globulin Ratio 0.2L, Amylase Level 74, Lipase 310 12/10/18 08:55: Vancomycin Level Trough [Pending] Current Medications Medications (Trade) Dose Ordered Sig/Iram Route PRN Reason Start Time Stop Time Status Last Admin Dose Admin Acetaminophen (Tylenol) 650 mg DAILY GT 12/10/18 09:00 01/08/19 08:59 12/09/18 20:28 Acetaminophen (Tylenol) 650 mg Q4H PRN GT Mild Pain/Temp > 100.5 12/09/18 11:00 01/07/19 20:44 Amlodipine Besylate (Norvasc) 10 mg DAILY GT 12/09/18 09:00 01/08/19 08:59 12/09/18 08:29 Artificial Tears (Akwa-Tears) 2 drop Q4H PRN BOTH EYES DRY EYES 12/08/18 20:45 01/07/19 20:44 Ascorbic Acid (Vitamin C) 500 mg DAILY GT 12/09/18 09:00 01/08/19 08:59 12/09/18 08:29 Aspirin (ASA) 81 mg DAILY GT 12/09/18 09:00 01/08/19 08:59 12/09/18 08:28 Atorvastatin Calcium (Lipitor) 10 mg BEDTIME GT 12/08/18 21:00 01/07/19 20:59 12/09/18 20:28 Bisacodyl (Dulcolax) 10 mg DAILYPRN PRN RECTAL constipation 12/08/18 20:45 01/07/19 20:44 Dextrose 1,000 ml @ 50 mls/hr Q20H IV 12/09/18 21:00 01/08/19 20:59 12/09/18 20:30 Docusate Sodium (Colace) 100 mg DAILY GT 12/10/18 09:00 01/08/19 08:59 Doxazosin Mesylate (Cardura) 1 mg QHS GT 12/08/18 21:00 01/07/19 20:59 12/09/18 20:27 Heparin Sodium (Porcine) (Heparin 5000 units/ml) 5,000 units EVERY 12 HOURS SUBQ 12/09/18 09:00 01/08/19 08:59 12/09/18 20:31 Isoniazid (Inh) 300 mg DAILY GT 12/09/18 09:00 01/08/19 08:59 12/09/18 08:29 Lansoprazole (Prevacid) 30 mg Q12HR GT 12/09/18 21:00 01/07/19 20:59 12/09/18 20:28 Levetiracetam (Keppra) 750 mg Q12HR GT 12/08/18 21:00 01/07/19 20:59 12/09/18 20:29 Magnesium Hydroxide (Mom) 30 ml DAILYPRN PRN GT constipation 12/08/18 20:45 01/07/19 20:44 Metoprolol Tartrate (Lopressor) 50 mg EVERY 12 HOURS GT 12/08/18 21:00 01/07/19 20:59 12/09/18 20:27 Multivitamins Therapeutic (Therapeutic Multivitamin) 1 ea DAILY ORAL 12/09/18 09:00 01/08/19 08:59 12/09/18 08:30 Piperacillin Sod/ Tazobactam Sod 3.375 gm/Sodium Chloride 110 ml @ 27.5 mls/hr Q8H IVPB 12/09/18 16:00 12/16/18 15:59 12/09/18 23:42 Potassium Chloride (K-Dur) 40 meq ONCE ORAL 12/10/18 08:30 12/10/18 10:00 Pyridoxine HCl (Vitamin B6) 50 mg DAILY GT 12/10/18 09:00 01/08/19 10:29 Rifampin (Rifadin) 600 mg DAILY GT 12/09/18 10:30 01/08/19 10:29 12/09/18 10:51 Sodium Phosphate (Fleet's Sodium Phosl Enema) 133 ml QOD PRN RECTAL constipation 12/10/18 09:15 01/07/19 20:44 Vancomycin HCl (Vanco rx to dose) 1 ea DAILY PRN MISC Per rx protocol 12/08/18 21:00 01/07/19 20:59 Vancomycin HCl 500 mg/Dextrose 110 ml @ 110 mls/hr Q12H IVPB 12/09/18 10:00 12/14/18 09:59 12/09/18 20:32 Zinc Sulfate (Zinc Sulfate) 220 mg DAILY GT 12/09/18 09:00 01/08/19 08:59 12/09/18 08:29 Nakul Cisse MD December 10, 2018 09:34
[2018-12-10] MEDS: Isoniazid 300mg tab GT SCH (09:36)
[2018-12-10] MEDS: Ascorbic Acid 500mg tab GT SCH (09:36)
[2018-12-10] MEDS: Pyridoxine 50mg tab GT SCH (09:36)
[2018-12-10] MEDS: Metoprolol Tartrate 50mg tab GT SCH ×2 (09:37→21:28)
[2018-12-10] MEDS: Docusate 100mg/10ml Liq GT SCH (09:38)
[2018-12-10] MEDS: levETIRAcetam 500mg/5ml Liquid GT SCH ×2 (09:39→21:27)
[2018-12-10] MEDS: Heparin 5000 units/ml inj SUBQ SCH ×2 (09:45→21:29)
[2018-12-10] MEDS: Acetaminophen 650mg/20.3ml GT SCH (09:46)
[2018-12-10] MEDS: Vancomycin 500mg/D5W 110ml IVPB SCH ×8 (09:59→22:41)
[2018-12-10] MEDS: Piperacillin/Tazobactam 3.375 GM in NS 110 ML IVPB SCH ×2 (10:47→17:22)
--- NOTE | 2018-12-10 11:31 | NUR ---
*-* INSURANCE *-* UPDATED CLINICALS HAVE BEEN FAXED TO: [facility] P:[phone] F:[phone]
[2018-12-10 12:00] VITALS: BP 102/50
--- NOTE | 2018-12-10 12:26 | Infectious Diseases Prog Note ---
Assessment/Plan Assessment/Plan ASSESSMENT: This is a 73-year-old gentleman with history of stroke, seizure disorder, respiratory failure, status post tracheostomy, who comes in with fevers and is found to have, 1. Bilateral pneumonia. 2. History of pulmonary tuberculosis, on therapy. 3. Seizure disorder. 4. CVA. 5. Anemia 6. Pressure ulcers PLAN: 1. Continue IV vancomycin and Zosyn. 2. Continue isoniazid and rifampin & pyridoxine. 3. case was D/W infectious control nurse regarding TB treatment duration 4. We will f/u sputum for Gram stain and culture. 5. We will follow up cultures and adjust antibiotics accordingly Subjective ROS Limited/Unobtainable: Yes Constitutional: Reports: fever, other - low grade Allergies: Coded Allergies: No Known Allergies (Unverified , 01/27/17) Objective Vital Signs Last 24 Hour Vital Signs Date Time Temp Pulse Resp B/P (MAP) Pulse Ox O2 Delivery O2 Flow Rate FiO2 12/10/18 12:00 40 12/10/18 12:00 Mechanical Ventilator 12/10/18 12:00 66 12/10/18 11:15 40 19 40 12/10/18 10:16 100.0 12/10/18 09:37 76 120/53 12/10/18 09:37 76 120/53 12/10/18 09:22 76 18 40 12/10/18 08:00 40 12/10/18 08:00 Mechanical Ventilator 12/10/18 08:00 100.0 74 18 120/53 (75) 100 12/10/18 08:00 78 12/10/18 07:21 70 20 40 12/10/18 05:02 72 17 40 12/10/18 04:00 97.3 60 18 116/55 (75) 100 12/10/18 04:00 40 12/10/18 04:00 Mechanical Ventilator 12/10/18 04:00 65 12/10/18 03:16 64 16 40 12/10/18 01:23 65 22 40 12/10/18 00:00 79 12/10/18 00:00 Mechanical Ventilator 12/10/18 00:00 40 12/10/18 00:00 97.9 76 16 129/70 (89) 100 12/09/18 23:34 66 21 40 12/09/18 21:39 71 18 40 12/09/18 20:27 92 130/65 12/09/18 20:00 Mechanical Ventilator 12/09/18 20:00 98.0 92 18 130/65 (86) 100 12/09/18 20:00 89 12/09/18 20:00 40 12/09/18 19:27 72 18 40 12/09/18 16:59 65 17 40 12/09/18 16:00 97.7 66 20 114/55 (74) 100 12/09/18 16:00 Mechanical Ventilator 12/09/18 16:00 40 12/09/18 16:00 64 12/09/18 15:08 63 18 40 12/09/18 13:20 83 15 40 Height (Feet): 5 Height (Inches): 7.00 Weight (Pounds): 118 General Appearance: no acute distress, cachetic HEENT: status post trach Respiratory/Chest: decreased breath sounds, other - on ventilator Cardiovascular: normal rate Abdomen: soft, non tender, other - GT feeding Extremities: no edema Skin: ulcers, other - stage 4 in sacrum & right hip Neurologic/Psychiatric: unresponsiveness Musculoskeletal: atrophy Microbiology Date/Time Source Procedure Growth Status 12/09/18 10:00 Sputum Gram Stain - Final Resulted 12/09/18 10:00 Sputum Sputum Culture Pending Resulted Laboratory Tests Test 12/10/18 03:25 12/10/18 08:55 White Blood Count 9.9 K/UL (4.8-10.8) Red Blood Count 2.99 M/UL (4.70-6.10) L Hemoglobin 7.6 G/DL (14.2-18.0) L Hematocrit 24.8 % (42.0-52.0) L Mean Corpuscular Volume 83 FL (80-99) Mean Corpuscular Hemoglobin 25.5 PG (27.0-31.0) L Mean Corpuscular Hemoglobin Concent 30.8 G/DL (32.0-36.0) L Red Cell Distribution Width 17.6 % (11.6-14.8) H Platelet Count 419 K/UL (150-450) Mean Platelet Volume 5.3 FL (6.5-10.1) L Neutrophils (%) (Auto) % (45.0-75.0) Lymphocytes (%) (Auto) % (20.0-45.0) Monocytes (%) (Auto) % (1.0-10.0) Eosinophils (%) (Auto) % (0.0-3.0) Basophils (%) (Auto) % (0.0-2.0) Differential Total Cells Counted 100 Neutrophils % (Manual) 73 % (45-75) Lymphocytes % (Manual) 14 % (20-45) L Monocytes % (Manual) 7 % (1-10) Eosinophils % (Manual) 6 % (0-3) H Basophils % (Manual) 0 % (0-2) Band Neutrophils 0 % (0-8) Platelet Estimate Adequate Platelet Morphology Normal Hypochromasia 2+ Anisocytosis 1+ Prothrombin Time 12.2 SEC (9.30-11.50) H Prothromb Time International Ratio 1.2 (0.9-1.1) H Activated Partial Thromboplast Time 36 SEC (23-33) H Sodium Level 149 MMOL/L (136-145) H Potassium Level 3.4 MMOL/L (3.5-5.1) L Chloride Level 114 MMOL/L (98-107) H Carbon Dioxide Level 29 MMOL/L (21-32) Anion Gap 6 mmol/L (5-15) Blood Urea Nitrogen 38 mg/dL (7-18) H Creatinine 0.7 MG/DL (0.55-1.30) Estimat Glomerular Filtration Rate mL/min (>60) Glucose Level 113 MG/DL (74-106) H Calcium Level 8.5 MG/DL (8.5-10.1) Total Bilirubin 0.6 MG/DL (0.2-1.0) Aspartate Amino Transf (AST/SGOT) 37 U/L (15-37) Alanine Aminotransferase (ALT/SGPT) 8 U/L (12-78) L Alkaline Phosphatase 401 U/L (46-116) H Total Protein 6.6 G/DL (6.4-8.2) Albumin 0.9 G/DL (3.4-5.0) L Globulin 5.7 g/dL Albumin/Globulin Ratio 0.2 (1.0-2.7) L Amylase Level 74 U/L (25-115) Lipase 310 U/L (73-393) Vancomycin Level Trough 16.9 ug/mL (5.0-12.0) H Current Medications Medications (Trade) Dose Ordered Sig/Iram Route PRN Reason Start Time Stop Time Status Last Admin Dose Admin Acetaminophen (Tylenol) 650 mg DAILY GT 12/10/18 09:00 01/08/19 08:59 12/10/18 09:46 Acetaminophen (Tylenol) 650 mg Q4H PRN GT Mild Pain/Temp > 100.5 12/09/18 11:00 01/07/19 20:44 Amlodipine Besylate (Norvasc) 10 mg DAILY GT 12/09/18 09:00 01/08/19 08:59 12/10/18 09:37 Artificial Tears (Akwa-Tears) 2 drop Q4H PRN BOTH EYES DRY EYES 12/08/18 20:45 01/07/19 20:44 Ascorbic Acid (Vitamin C) 500 mg DAILY GT 12/09/18 09:00 01/08/19 08:59 12/10/18 09:36 Aspirin (ASA) 81 mg DAILY GT 12/09/18 09:00 01/08/19 08:59 12/10/18 09:34 Atorvastatin Calcium (Lipitor) 10 mg BEDTIME GT 12/08/18 21:00 01/07/19 20:59 12/09/18 20:28 Bisacodyl (Dulcolax) 10 mg DAILYPRN PRN RECTAL constipation 12/08/18 20:45 01/07/19 20:44 Dextrose 1,000 ml @ 50 mls/hr Q20H IV 12/09/18 21:00 01/08/19 20:59 12/09/18 20:30 Docusate Sodium (Colace) 100 mg DAILY GT 12/10/18 09:00 01/08/19 08:59 12/10/18 09:38 Doxazosin Mesylate (Cardura) 1 mg QHS GT 12/08/18 21:00 01/07/19 20:59 12/09/18 20:27 Heparin Sodium (Porcine) (Heparin 5000 units/ml) 5,000 units EVERY 12 HOURS SUBQ 12/09/18 09:00 01/08/19 08:59 12/10/18 09:45 Isoniazid (Inh) 300 mg DAILY GT 12/09/18 09:00 01/08/19 08:59 12/10/18 09:36 Lansoprazole (Prevacid) 30 mg Q12HR GT 12/09/18 21:00 01/07/19 20:59 12/10/18 09:34 Levetiracetam (Keppra) 750 mg Q12HR GT 12/08/18 21:00 01/07/19 20:59 12/10/18 09:39 Magnesium Hydroxide (Mom) 30 ml DAILYPRN PRN GT constipation 12/08/18 20:45 01/07/19 20:44 Metoprolol Tartrate (Lopressor) 50 mg EVERY 12 HOURS GT 12/08/18 21:00 01/07/19 20:59 12/10/18 09:37 Multivitamins Therapeutic (Therapeutic Multivitamin) 1 ea DAILY ORAL 12/09/18 09:00 01/08/19 08:59 12/10/18 09:34 Piperacillin Sod/ Tazobactam Sod 3.375 gm/Sodium Chloride 110 ml @ 27.5 mls/hr Q8H IVPB 12/09/18 16:00 12/16/18 15:59 12/10/18 10:47 Pyridoxine HCl (Vitamin B6) 50 mg DAILY GT 12/10/18 09:00 01/08/19 10:29 12/10/18 09:36 Rifampin (Rifadin) 600 mg DAILY GT 12/09/18 10:30 01/08/19 10:29 12/10/18 09:36 Sodium Phosphate (Fleet's Sodium Phosl Enema) 133 ml QOD PRN RECTAL constipation 12/10/18 09:15 01/07/19 20:44 Vancomycin HCl (Vanco rx to dose) 1 ea DAILY PRN MISC Per rx protocol 12/08/18 21:00 01/07/19 20:59 Vancomycin HCl 500 mg/Dextrose 110 ml @ 110 mls/hr Q12H IVPB 12/09/18 10:00 12/14/18 09:59 12/10/18 10:48 Zinc Sulfate (Zinc Sulfate) 220 mg DAILY GT 12/09/18 09:00 01/08/19 08:59 12/10/18 09:34 Rahul Shen MD December 10, 2018 12:26
--- NOTE | 2018-12-10 14:32 | Diagnostic Imaging Report ---
Indication: Abnormal liver function tests Technique: Multiplanar grayscale and color Doppler imaging of the abdomen Comparison: CT of the abdomen and pelvis 05/09/2018; abdominal ultrasound 04/24/2014 Findings: Imaged portions of the abdominal aorta are normal in caliber. Please note that the aortic bifurcation is poorly visualized due to overlying bowel gas. Imaged portions of the pancreas are unremarkable in appearance. There is slight surface nodularity of the liver. No focal hepatic mass lesion is appreciated sonographically. Some fluid noted along the falciform ligament, similar to findings of the prior CT. The gallbladder is again not visualized and likely surgically absent. Similar findings were noted on the prior exam. No intrahepatic biliary ductal dilatation is identified. Common bile duct measures 4 to 5 mm in diameter. Main portal vein is patent with normal direction of flow. Trace perihepatic ascites is seen. Right kidney measures 10.6 cm in length. It demonstrates normal echogenicity. There is no hydronephrosis or sonographically appreciable renal stone. Left kidney measures 11.3 cm in length. It demonstrates normal echogenicity. A 1.4 cm simple cyst is noted in the left kidney. There is no hydronephrosis or sonographically appreciable renal stone on left. Spleen is enlarged, measuring 15.4 cm in length. Pleural effusion incidentally identified. IMPRESSION: * Nodular contour of the liver suggestive of cirrhosis. This has been previously described. No focal hepatic mass lesion appreciated sonographically. * Splenomegaly with the spleen measuring 15 .4 cm in length. Trace ascites also noted. Findings may indicate portal hypertension. * Status post cholecystectomy. No biliary ductal dilatation. * Simple appearing left renal cyst. * Left pleural effusion partially visualized.
--- NOTE | 2018-12-10 15:36 | Surgery Progress Note ---
Surgery Progress Note Subjective Additional Comments no acute events. exam stable. wounds changed. Objective Last 24 Hour Vital Signs Date Time Temp Pulse Resp B/P (MAP) Pulse Ox O2 Delivery O2 Flow Rate FiO2 12/10/18 13:10 66 22 40 12/10/18 12:00 40 12/10/18 12:00 Mechanical Ventilator 12/10/18 12:00 66 12/10/18 12:00 98.9 67 19 102/50 (67) 100 12/10/18 11:15 40 19 40 12/10/18 10:16 100.0 12/10/18 09:37 76 120/53 12/10/18 09:37 76 120/53 12/10/18 09:22 76 18 40 12/10/18 08:00 40 12/10/18 08:00 Mechanical Ventilator 12/10/18 08:00 100.0 74 18 120/53 (75) 100 12/10/18 08:00 78 12/10/18 07:21 70 20 40 12/10/18 05:02 72 17 40 12/10/18 04:00 97.3 60 18 116/55 (75) 100 12/10/18 04:00 40 12/10/18 04:00 Mechanical Ventilator 12/10/18 04:00 65 12/10/18 03:16 64 16 40 12/10/18 01:23 65 22 40 12/10/18 00:00 79 12/10/18 00:00 Mechanical Ventilator 12/10/18 00:00 40 12/10/18 00:00 97.9 76 16 129/70 (89) 100 12/09/18 23:34 66 21 40 12/09/18 21:39 71 18 40 12/09/18 20:27 92 130/65 12/09/18 20:00 Mechanical Ventilator 12/09/18 20:00 98.0 92 18 130/65 (86) 100 12/09/18 20:00 89 12/09/18 20:00 40 12/09/18 19:27 72 18 40 12/09/18 16:59 65 17 40 12/09/18 16:00 97.7 66 20 114/55 (74) 100 12/09/18 16:00 Mechanical Ventilator 12/09/18 16:00 40 12/09/18 16:00 64 I&O Intake and Output 12/09/18 12/10/18 19:00 07:00 Intake Total 970 ml 1340.0 ml Output Total 800 ml 750 ml Balance 170 ml 590.0 ml Intake Free Water 300 ml 100 ml IV Total 110 ml 880.0 ml Tube Feeding 560 ml 360 ml Output Urine Total 800 ml 750 ml # Bowel Movements 1 Dressing: saturated Wound: other Drains: other Cardiovascular: RSR Respiratory: clear Abdomen: soft, present bowel sounds, non-distended Extremities: no cyanosis Laboratory Tests Test 12/10/18 03:25 12/10/18 08:55 White Blood Count 9.9 K/UL (4.8-10.8) Red Blood Count 2.99 M/UL (4.70-6.10) L Hemoglobin 7.6 G/DL (14.2-18.0) L Hematocrit 24.8 % (42.0-52.0) L Mean Corpuscular Volume 83 FL (80-99) Mean Corpuscular Hemoglobin 25.5 PG (27.0-31.0) L Mean Corpuscular Hemoglobin Concent 30.8 G/DL (32.0-36.0) L Red Cell Distribution Width 17.6 % (11.6-14.8) H Platelet Count 419 K/UL (150-450) Mean Platelet Volume 5.3 FL (6.5-10.1) L Neutrophils (%) (Auto) % (45.0-75.0) Lymphocytes (%) (Auto) % (20.0-45.0) Monocytes (%) (Auto) % (1.0-10.0) Eosinophils (%) (Auto) % (0.0-3.0) Basophils (%) (Auto) % (0.0-2.0) Differential Total Cells Counted 100 Neutrophils % (Manual) 73 % (45-75) Lymphocytes % (Manual) 14 % (20-45) L Monocytes % (Manual) 7 % (1-10) Eosinophils % (Manual) 6 % (0-3) H Basophils % (Manual) 0 % (0-2) Band Neutrophils 0 % (0-8) Platelet Estimate Adequate Platelet Morphology Normal Hypochromasia 2+ Anisocytosis 1+ Prothrombin Time 12.2 SEC (9.30-11.50) H Prothromb Time International Ratio 1.2 (0.9-1.1) H Activated Partial Thromboplast Time 36 SEC (23-33) H Sodium Level 149 MMOL/L (136-145) H Potassium Level 3.4 MMOL/L (3.5-5.1) L Chloride Level 114 MMOL/L (98-107) H Carbon Dioxide Level 29 MMOL/L (21-32) Anion Gap 6 mmol/L (5-15) Blood Urea Nitrogen 38 mg/dL (7-18) H Creatinine 0.7 MG/DL (0.55-1.30) Estimat Glomerular Filtration Rate mL/min (>60) Glucose Level 113 MG/DL (74-106) H Calcium Level 8.5 MG/DL (8.5-10.1) Total Bilirubin 0.6 MG/DL (0.2-1.0) Aspartate Amino Transf (AST/SGOT) 37 U/L (15-37) Alanine Aminotransferase (ALT/SGPT) 8 U/L (12-78) L Alkaline Phosphatase 401 U/L (46-116) H Total Protein 6.6 G/DL (6.4-8.2) Albumin 0.9 G/DL (3.4-5.0) L Globulin 5.7 g/dL Albumin/Globulin Ratio 0.2 (1.0-2.7) L Amylase Level 74 U/L (25-115) Lipase 310 U/L (73-393) Vancomycin Level Trough 16.9 ug/mL (5.0-12.0) H Plan Problems: (1) Decubitus ulcer Assessment & Plan: Pt presented on admission with multiple full thickness pressure injuries. Skin assessed under trach collar and no evidence of skin breakdown noted. Unstageable pressure injury with 100% yellow slough noted to L earlobe. Periwound skin tone is darker without erythema . No odor or exudate noted.( L00.3cm x (W)0.4cm. Hyperpigmentation from previous wound noted to R scapula noted and stable/ healing. 2x Full thickness pressure injuries noted to thoracic spine.(#1Proximally)Full thickness pressure injury with 95% yellow slough at base of wound with erythematous borders.Periwound skin tone is darker without induration or fluctuance.No odor or exudate noted(L)2.3cm x (W)1.7cm. (#2 inferior)Full thickness pressure injury with 60% loose fibrinous slough,10% necrosis,30% red granulation. Edges adherent to base of wound and are flat. Small amt seropurulent ,non-odorous exudate noted. Additionally,scattered partial thickness wounds noted periwound. R of thoracic spine Small full thickness pressure injury with 100% yellow slough at base of wound. Edges adherent and flat. No odor or exudate noted. (L) 0.6cm x (W)0.5cm. Full thickness pressure injury to lumbar spine. Base of wound with scattered slough ,10% necrosis. (+) maceration along borders. Darker skin tone without elevation in skin temp ,induration or fluctuance periwound.(L)4.5cm x (W)5cm. Full thickness pressure injury noted to R Iliac.Base of wound has 75% yellow slough,25% beefy red,(+) maceration along borders. Small amt non-odorous serous exudate noted.(L)4.8cm x (W)4cm.At base of R iliac pressure injury an area of darker skin tone that is indurated noted (L) 4.5cm x (W)6cm. Full thickness pressure injury L Iliac. 80% yellow/velazquez slough,20% erythematous. edges adherent and flat. Periwound withot erythema or induration. (L)3.3cm x (W)3.5cm. NO odor or exudate noted. Full thickness pressure injury noted to R trochanter with undermining. 80% yellow/velazquez slough,20% erythematous at base. Bone is palpable. (+) maceration along borders.Darker skin tone with induration periwound. No elevation in skin temp noted.Small amt non-odorous seropurulent exudate noted.(L)4.5cm x (W) 6.3cmx (D)2.8cm, Undermining 12-12 by 2.6cm @9o'clock. DTPI noted to R hip.Base of indurated and black in colour.(L)2cm x (W)5.7cm. Full thickness sacral pressure injury.25% yellow slough,75%erythematous.Edges adherent and flat. (L)8.7cm x (W)5.2cm x (W)2cm. In addition to sacral wound, periwound noted to have multiple small wounds that are pink and dry. Partial thickness pressure injury posterior upper R thigh.Base of wound moist viable.Edges loose and darker than is normal skin tone.Periwound without induration or elevation in skin temp.Small amt serosanguineous exudate noted (L) 1.5cm x (W)1.3cm. Full thickness pressure injury L trochanter.100% soft brown/black necrosis noted at base of wound. Erythematous borders. Small amt non-odorous brown exudate noted. Periwound indurated with darker skin tone. (L)4.5cm x (W)4.2cm. R heel boggy with non-blanchable erythema .Historical scar noted to R heel. DTPI L heel noted. Maroon discoloration with fluctuance centrally ,indurated borders noted.(L)3.5cm x (W)2cm. Tx.Plan: Cleanse wounds Thoracic spine,R and L of thoracic with Saline. Apply Therahoney.Apply Triad periwound. Cover each wound with Optifoam drsgs. Change every 3 days and prn. Cleanse wound R trochanter with Saline. Apply Therahoney. Apply Triad periwound. Cover with Optifoam drsg every 3 days and prn. Cleanse wound Lumbar spine with Saline. Apply Therahoney.Apply Triad paste periwound. Cover with Optifoam drsg every 3 days and prn. Cleanse wound L trochanter with Saline. Apply Therahoney.Apply Triad Paste periwound. Cover with Optifoam drsg every 3 days and prn. Cleanse wound posterior upper R thigh with saline.Apply Triad Paste .cover with Optifoam drsg .Change every 3 days and prn. Cleanse wounds R and L Iliac with Saline. Apply Therahoney.Apply Therahoney periwound. Cover with Optifoam drsg every 3 days and prn. Cleanse L earlobe with Saline. Apply Therahoney. Cover with Optifoam drsg. Change Daily and prn. Apply Cavilon Skin Barrier to R and L heels .Cover each heel with Optifoam drsgs. Change every 7 days and prn. Apply Cavilon Skin BArrier to Medial aspects of R and L knees. Cover each knee with Optifoam drsg. Change every 7 days and prn. Air Fluidized Mattress. Reposition at least every 2hours or as tolerated. Off-load heels with pillow. (2) Sepsis Assessment & Plan: On Abx CXR Monitor labs (3) Dehydration Assessment & Plan: On IV fluids okay to resume tube feeds (4) Respiratory distress Assessment & Plan: on vent via trach cont w/ breathing treatments (5) Abnormal LFTs Assessment & Plan: alk phos elevated trend for now * Nodular contour of the liver suggestive of cirrhosis. This has been previously described. No focal hepatic mass lesion appreciated sonographically. * Splenomegaly with the spleen measuring 15 .4 cm in length. Trace ascites also noted. Findings may indicate portal hypertension. * Status post cholecystectomy. No biliary ductal dilatation. * Simple appearing left renal cyst. * Left pleural effusion partially visualized. Zev Candelaria December 10, 2018 15:36
--- NOTE | 2018-12-10 15:40 | NUR ---
NURSE NOTES: infusing one unit of PRBCs as per MD order. patients Addendum: 12/10/18 at 1545 by KACY PUGA RN RN infusing one unit of PRBCs as per MD order. patient's vital signs are stable at this time. no signs or symptoms of any adverse reaction from blood transfusion at this time. will continue to monitor.
--- NOTE | 2018-12-10 15:55 | NUR ---
NURSE NOTES: blood transfusion infusing well. vital signs stable at this time. no signs and symptoms of adverse reactions. will continue to monitor.
[2018-12-10 16:00] VITALS: BP 101/52
--- NOTE | 2018-12-10 18:42 | NUR ---
NURSE NOTES: blood transfusion complete. post transfusion vital signs are as follows: BP: 105/46, HR: 70, temp: 97.9, RR: 18, sat: 100%. no signs and symptoms of adverse reaction. will continue to monitor.
--- NOTE | 2018-12-10 19:15 | NUR ---
HAND-OFF: Report given to .JANET REEVES.
--- NOTE | 2018-12-10 19:16 | NUR ---
NURSE NOTES: Received patient from Ralph RN. Patient is resting with no signs of acute distress. Bed at its lowest position, call light in reach and side rails up with seizure precaution in place. Will continue to monitor.
--- NOTE | 2018-12-10 19:19 | NUR ---
RESPIRATORY NOTE: Received pt on AC 12, 500VT, 40%, PEEP +5. Pt is trach-dependent w/ a cuffed, Portex 7 tube. Pt asleep/disoriented, responds to stimuli. B/S betsy. rhonchi/diminished, sxn small to moderate amounts of thick/thin, pale-yellow secretions. Vent plugged into red outlet, ambubag at bedside. Pt in no apparent distress at this time. Will continue plan of care.
[2018-12-10 20:00] VITALS: BP 148/47
[2018-12-10] MEDS: Doxazosin 1mg Tab GT SCH (21:27)
[2018-12-11] VITALS (7 sets, daily range): BP systolic 115–142; BP diastolic 57–67
[2018-12-11] MEDS: Piperacillin/Tazobactam 3.375 GM in NS 110 ML IVPB SCH ×3 (01:05→16:26)
[2018-12-11 04:59] LABS: BASOPHILS % (AUTO) 0.4 % (0.0-2.0); HEMATOCRIT 26.6 % (42.0-52.0); HEMOGLOBIN 8.3 G/DL (14.2-18.0); LYMPHOCYTES % (AUTO) 11.2 % (20.0-45.0); MEAN CORPUSCULAR VOLUME 82 FL (80-99); NEUTROPHILS % (AUTO) 77.4 % (45.0-75.0); PLATELET COUNT 406 K/UL (150-450); RED BLOOD COUNT 3.24 M/UL (4.70-6.10); WHITE BLOOD COUNT 9.5 K/UL (4.8-10.8)
[2018-12-11 05:28] LABS: ALANINE AMINOTRANSFERASE 8 U/L (12-78); ALBUMIN 0.9 G/DL (3.4-5.0); ALBUMIN/GLOBULIN RATIO 0.2 (1.0-2.7); ALKALINE PHOSPHATASE 386 U/L (46-116); ANION GAP 6 mmol/L (5-15); ASPARTATE AMINO TRANSFERASE 30 U/L (15-37); BILIRUBIN,TOTAL 0.7 MG/DL (0.2-1.0); BLOOD UREA NITROGEN 33 mg/dL (7-18); CALCIUM 8.2 MG/DL (8.5-10.1); CARBON DIOXIDE 27 MMOL/L (21-32); CHLORIDE 112 MMOL/L (98-107); CREATININE 0.6 MG/DL (0.55-1.30); POTASSIUM 3.8 MMOL/L (3.5-5.1); SODIUM 145 MMOL/L (136-145)
--- NOTE | 2018-12-11 07:15 | NUR ---
NURSE NOTES: Report received from LALA Canales.Pt resting quietly in bed asleep noted no resp distress,with trach tube portex #7 to vent with current settings,tolerating well,no signs of pain or discomfort,SR on the monitor,GTF Vital AF 1.2 at 70 ml/hr ,no residual noted,Manzo cath intact , draining yellow urine,IV sites x2 RH and LH with IVF D5W at 50 ml/hr,skin warm and dry with multiple pressure wounds,SR up x2 HOB elevated,bed lock in lowest position,will continue with plans of care.
--- NOTE | 2018-12-11 07:15 | NUR ---
RESPIRATORY NOTE: Patient received mechanically ventilated on PB 840 with current ordered vent settings. Patient has trach size 7.0 Portex cuffed that is secured with a trach tie and guard. Vent alarms are functional and audible. There is a ambu bag available at the bedside and the vent is connected to a red outlet. Patient appears comfortable at this time with no signs/symptoms of respiratory distress or shortness of breath. Patient saturations are normal. Will continue to monitor.
--- NOTE | 2018-12-11 08:14 | General Progress Note ---
Assessment/Plan Problem List: (1) Aspiration pneumonia ICD Codes: J69.0 - Pneumonitis due to inhalation of food and vomit SNOMED: 447216752 (2) Hyperlipidemia ICD Codes: E78.5 - Hyperlipidemia, unspecified SNOMED: 20114417 (3) Dementia ICD Codes: F03.90 - Unspecified dementia without behavioral disturbance SNOMED: 31918194 (4) Sepsis ICD Codes: A41.9 - Sepsis, unspecified organism SNOMED: 34767130 (5) Encephalopathy ICD Codes: G93.40 - Encephalopathy, unspecified SNOMED: 82329734 (6) Respiratory distress ICD Codes: R06.03 - Acute respiratory distress SNOMED: 946687954 (7) Probable sepsis ICD Codes: A41.9 - Sepsis, unspecified organism SNOMED: 210965803 (8) Anemia ICD Codes: D64.9 - Anemia, unspecified SNOMED: 909444532 Status: stable, progressing Assessment/Plan: a/ sepsis pna pulm tb cva sz do anemia p/ iv abx tb meds follow up cultures ID eval appreciated tranfuse as needed check stool ob vent support resp rx monitor lytes. replace as needed d.w poc x 5 mins Subjective ROS Limited/Unobtainable: Yes Constitutional: Reports: malaise, weakness HEENT: Reports: no symptoms Cardiovascular: Reports: no symptoms Respiratory: Reports: no symptoms Gastrointestinal/Abdominal: Reports: difficulty swallowing Genitourinary: Reports: no symptoms Neurologic/Psychiatric: Reports: pre-existing deficit, seizure Endocrine: Reports: no symptoms Hematologic/Lymphatic: Reports: anemia Allergies: Coded Allergies: No Known Allergies (Unverified , 01/27/17) All Systems: reviewed and negative except above Subjective no events. stable on the vent. on iv abx. no szs. cultures neg so far. no bleeding Objective Last 24 Hour Vital Signs Date Time Temp Pulse Resp B/P (MAP) Pulse Ox O2 Delivery O2 Flow Rate FiO2 12/11/18 07:12 79 23 40 12/11/18 05:18 74 22 40 12/11/18 04:00 Mechanical Ventilator 12/11/18 04:00 40 12/11/18 04:00 98.9 74 22 115/60 (78) 100 12/11/18 03:42 73 12/11/18 03:09 73 21 40 12/11/18 01:00 76 27 40 12/11/18 00:00 Mechanical Ventilator 12/11/18 00:00 99.0 80 24 122/62 (82) 100 12/10/18 23:22 72 21 40 12/10/18 21:28 71 108/47 12/10/18 21:13 75 21 40 12/10/18 20:00 40 12/10/18 20:00 98.0 77 22 148/47 (80) 100 12/10/18 20:00 Mechanical Ventilator 12/10/18 20:00 76 12/10/18 19:17 79 22 40 12/10/18 17:10 77 20 40 12/10/18 16:00 97.2 63 18 101/52 (68) 100 12/10/18 16:00 40 12/10/18 16:00 62 12/10/18 16:00 Mechanical Ventilator 12/10/18 15:15 64 18 40 12/10/18 13:10 66 22 40 12/10/18 12:00 40 12/10/18 12:00 Mechanical Ventilator 12/10/18 12:00 66 12/10/18 12:00 98.9 67 19 102/50 (67) 100 12/10/18 11:15 40 19 40 12/10/18 10:16 100.0 12/10/18 09:37 76 120/53 12/10/18 09:37 76 120/53 12/10/18 09:22 76 18 40 Intake and Output 12/10/18 12/11/18 19:00 07:00 Intake Total 1720.0 ml 1010.0 ml Output Total 1300 ml Balance 420.0 ml 1010.0 ml Intake Free Water 150 ml 300 ml IV Total 620.0 ml 220.0 ml Tube Feeding 700 ml 490 ml Blood Product 250 ml Output Urine Total 1300 ml # Bowel Movements 2 1 Laboratory Tests 12/10/18 08:55: Vancomycin Level Trough 16.9H 12/11/18 03:10: White Blood Count 9.5, Red Blood Count 3.24L, Hemoglobin 8.3L, Hematocrit 26.6L , Mean Corpuscular Volume 82, Mean Corpuscular Hemoglobin 25.7L, Mean Corpuscular Hemoglobin Concent 31.4L, Red Cell Distribution Width 17.0H, Platelet Count 406, Mean Platelet Volume 5.0L, Neutrophils (%) (Auto) 77.4H, Lymphocytes (%) (Auto) 11.2L, Monocytes (%) (Auto) 6.0, Eosinophils (%) (Auto) 5.0H, Basophils (%) (Auto) 0.4, Sodium Level 145, Potassium Level 3.8, Chloride Level 112H, Carbon Dioxide Level 27, Anion Gap 6, Blood Urea Nitrogen 33H, Creatinine 0.6, Estimat Glomerular Filtration Rate , Glucose Level 136H, Calcium Level 8.2L, Magnesium Level 1.9, Total Bilirubin 0.7, Aspartate Amino Transf (AST/SGOT) 30, Alanine Aminotransferase (ALT/SGPT) 8L, Alkaline Phosphatase 386H, Total Protein 6.5, Albumin 0.9L, Globulin 5.6, Albumin/ Globulin Ratio 0.2L Height (Feet): 5 Height (Inches): 7.00 Weight (Pounds): 118 General Appearance: WD/WN, lethargic, confused, cachetic, thin Neck: supple Cardiovascular: normal peripheral pulses, normal rate, regular rhythm Respiratory/Chest: chest wall non-tender, lungs clear, normal breath sounds Abdomen: normal bowel sounds, non tender, soft, no organomegaly Edema: no edema noted Arm (L), no edema noted Arm (R), no edema noted Leg (L), no edema noted Leg (R), no edema noted Pedal (L), no edema noted Pedal (R), no edema noted Generalized Neurologic: unresponsive, aphasia Jarrod Vásquez MD December 11, 2018 08:14
[2018-12-11] MEDS: Pyridoxine 50mg tab GT SCH (08:38)
[2018-12-11] MEDS: Aspirin Baby 81mg GT SCH (08:38)
[2018-12-11] MEDS: Ascorbic Acid 500mg tab GT SCH (08:38)
[2018-12-11] MEDS: Multivitamin w/Minerals tab ORAL SCH (08:38)
[2018-12-11] MEDS: levETIRAcetam 500mg/5ml Liquid GT SCH ×2 (08:39→20:54)
[2018-12-11] MEDS: Isoniazid 300mg tab GT SCH (08:39)
[2018-12-11] MEDS: Zinc Sulfate 220mg cap GT SCH (08:40)
[2018-12-11] MEDS: Metoprolol Tartrate 50mg tab GT SCH ×2 (08:40→20:53)
[2018-12-11] MEDS: Docusate 100mg/10ml Liq GT SCH (08:41)
[2018-12-11] MEDS: Heparin 5000 units/ml inj SUBQ SCH ×2 (08:45→20:55)
--- NOTE | 2018-12-11 10:00 | NUR ---
NURSE NOTES: Pt turned and repositioned,oral/tracheal secretions suctioned PRN.
[2018-12-11] MEDS: Vancomycin 500mg/D5W 110ml IVPB SCH ×2 (10:15)
--- NOTE | 2018-12-11 10:42 | Pulmonology Progress Note ---
Assessment/Plan Assessment/Plan ASSESSMENT: history of stroke, respiratory failure, hypernatremia, acute on chronic renal failure, chronic encephalopathy, seizure disorder, pulmonary tuberculosis, and anemia possible sepsis, pneumonia PLAN care noted and cultures reviewed IV antibiotics reviewed respiratory care Ventilatory support as is no wean SNF meds noted supportive care hypotonic fluids suction no wean planned monitor imaging and labs support as needed oxygen therapy noted prognosis guarded impression, plan, and exam edited and reviewed in detail care discussed with RN Subjective Allergies: Coded Allergies: No Known Allergies (Unverified , 01/27/17) Subjective care noted on vent bed bound Objective Last 24 Hour Vital Signs Date Time Temp Pulse Resp B/P (MAP) Pulse Ox O2 Delivery O2 Flow Rate FiO2 12/11/18 08:55 75 21 40 12/11/18 08:42 75 142/59 12/11/18 08:40 75 142/89 12/11/18 07:12 79 23 40 12/11/18 05:18 74 22 40 12/11/18 04:00 Mechanical Ventilator 12/11/18 04:00 40 12/11/18 04:00 98.9 74 22 115/60 (78) 100 12/11/18 03:42 73 12/11/18 03:09 73 21 40 12/11/18 01:00 76 27 40 12/11/18 00:00 Mechanical Ventilator 12/11/18 00:00 99.0 80 24 122/62 (82) 100 12/10/18 23:22 72 21 40 12/10/18 21:28 71 108/47 12/10/18 21:13 75 21 40 12/10/18 20:00 40 12/10/18 20:00 98.0 77 22 148/47 (80) 100 12/10/18 20:00 Mechanical Ventilator 12/10/18 20:00 76 12/10/18 19:17 79 22 40 12/10/18 17:10 77 20 40 12/10/18 16:00 97.2 63 18 101/52 (68) 100 12/10/18 16:00 40 12/10/18 16:00 62 12/10/18 16:00 Mechanical Ventilator 12/10/18 15:15 64 18 40 12/10/18 13:10 66 22 40 12/10/18 12:00 40 12/10/18 12:00 Mechanical Ventilator 12/10/18 12:00 66 12/10/18 12:00 98.9 67 19 102/50 (67) 100 12/10/18 11:15 40 19 40 Intake and Output 12/10/18 12/11/18 18:59 06:59 Intake Total 1770.0 ml 940.0 ml Output Total 1550 ml Balance 220.0 ml 940.0 ml Intake Free Water 150 ml 300 ml IV Total 670.0 ml 220.0 ml Tube Feeding 700 ml 420 ml Blood Product 250 ml Output Urine Total 1550 ml # Bowel Movements 2 1 Objective on vent chronically ill trach clear breath sounds bilaterally without rhonchi or wheeze [id number] without MRG NABS nontender no HSM; Gt no CCE; contractures nonfocal Microbiology Date/Time Source Procedure Growth Status 12/08/18 17:53 Blood Blood Culture - Preliminary NO GROWTH AFTER 48 HOURS Resulted 12/08/18 17:53 Blood Blood Culture - Preliminary NO GROWTH AFTER 48 HOURS Resulted 12/09/18 10:00 Sputum Gram Stain - Final Resulted 12/09/18 10:00 Sputum Culture - Preliminary Gram Negative Bacillus 1 Gram Negative Bacillus 2 Resulted 12/08/18 17:35 Rectum - Final NO CARBAPENEM-RESISTANT ENTEROBACTERI... Complete 12/08/18 17:35 Rectum VRE Culture - Final Enterococcus Faecium - Vre Complete Laboratory Tests 12/11/18 03:10: White Blood Count 9.5, Red Blood Count 3.24L, Hemoglobin 8.3L, Hematocrit 26.6L , Mean Corpuscular Volume 82, Mean Corpuscular Hemoglobin 25.7L, Mean Corpuscular Hemoglobin Concent 31.4L, Red Cell Distribution Width 17.0H, Platelet Count 406, Mean Platelet Volume 5.0L, Neutrophils (%) (Auto) 77.4H, Lymphocytes (%) (Auto) 11.2L, Monocytes (%) (Auto) 6.0, Eosinophils (%) (Auto) 5.0H, Basophils (%) (Auto) 0.4, Sodium Level 145, Potassium Level 3.8, Chloride Level 112H, Carbon Dioxide Level 27, Anion Gap 6, Blood Urea Nitrogen 33H, Creatinine 0.6, Estimat Glomerular Filtration Rate , Glucose Level 136H, Calcium Level 8.2L, Magnesium Level 1.9, Total Bilirubin 0.7, Aspartate Amino Transf (AST/SGOT) 30, Alanine Aminotransferase (ALT/SGPT) 8L, Alkaline Phosphatase 386H, Total Protein 6.5, Albumin 0.9L, Globulin 5.6, Albumin/ Globulin Ratio 0.2L Current Medications Medications (Trade) Dose Ordered Sig/Iram Route PRN Reason Start Time Stop Time Status Last Admin Dose Admin Acetaminophen (Tylenol) 650 mg DAILY GT 12/10/18 09:00 01/08/19 08:59 12/10/18 09:46 Acetaminophen (Tylenol) 650 mg Q4H PRN GT Mild Pain/Temp > 100.5 12/09/18 11:00 01/07/19 20:44 Amlodipine Besylate (Norvasc) 10 mg DAILY GT 12/09/18 09:00 01/08/19 08:59 12/11/18 08:42 Artificial Tears (Akwa-Tears) 2 drop Q4H PRN BOTH EYES DRY EYES 12/08/18 20:45 01/07/19 20:44 Ascorbic Acid (Vitamin C) 500 mg DAILY GT 12/09/18 09:00 01/08/19 08:59 12/11/18 08:38 Aspirin (ASA) 81 mg DAILY GT 12/09/18 09:00 01/08/19 08:59 12/11/18 08:38 Atorvastatin Calcium (Lipitor) 10 mg BEDTIME GT 12/08/18 21:00 01/07/19 20:59 12/10/18 21:27 Bisacodyl (Dulcolax) 10 mg DAILYPRN PRN RECTAL constipation 12/08/18 20:45 01/07/19 20:44 Dextrose 1,000 ml @ 50 mls/hr Q20H IV 12/09/18 21:00 01/08/19 20:59 12/10/18 17:25 Docusate Sodium (Colace) 100 mg DAILY GT 12/10/18 09:00 01/08/19 08:59 12/11/18 08:41 Doxazosin Mesylate (Cardura) 1 mg QHS GT 12/08/18 21:00 01/07/19 20:59 12/10/18 21:27 Heparin Sodium (Porcine) (Heparin 5000 units/ml) 5,000 units EVERY 12 HOURS SUBQ 12/09/18 09:00 01/08/19 08:59 12/11/18 08:45 Isoniazid (Inh) 300 mg DAILY GT 12/09/18 09:00 01/08/19 08:59 12/11/18 08:39 Lansoprazole (Prevacid) 30 mg Q12HR GT 12/09/18 21:00 01/07/19 20:59 12/11/18 08:38 Levetiracetam (Keppra) 750 mg Q12HR GT 12/08/18 21:00 01/07/19 20:59 12/11/18 08:39 Magnesium Hydroxide (Mom) 30 ml DAILYPRN PRN GT constipation 12/08/18 20:45 01/07/19 20:44 Metoprolol Tartrate (Lopressor) 50 mg EVERY 12 HOURS GT 12/08/18 21:00 01/07/19 20:59 12/11/18 08:40 Multivitamins Therapeutic (Therapeutic Multivitamin) 1 ea DAILY ORAL 12/09/18 09:00 01/08/19 08:59 12/11/18 08:38 Piperacillin Sod/ Tazobactam Sod 3.375 gm/Sodium Chloride 110 ml @ 27.5 mls/hr Q8H IVPB 12/09/18 16:00 12/16/18 15:59 12/11/18 08:37 Pyridoxine HCl (Vitamin B6) 50 mg DAILY GT 12/10/18 09:00 01/08/19 10:29 12/11/18 08:38 Rifampin (Rifadin) 600 mg DAILY GT 12/09/18 10:30 01/08/19 10:29 12/11/18 08:41 Sodium Phosphate (Fleet's Sodium Phosl Enema) 133 ml QOD PRN RECTAL constipation 12/10/18 09:15 01/07/19 20:44 Vancomycin HCl (Vanco rx to dose) 1 ea DAILY PRN MISC Per rx protocol 12/08/18 21:00 01/07/19 20:59 Vancomycin HCl 500 mg/Dextrose 110 ml @ 110 mls/hr Q12H IVPB 12/09/18 10:00 12/14/18 09:59 12/11/18 10:15 Zinc Sulfate (Zinc Sulfate) 220 mg DAILY GT 12/09/18 09:00 01/08/19 08:59 12/11/18 08:40 Nakul Cisse MD December 11, 2018 10:42
--- NOTE | 2018-12-11 12:07 | NUR ---
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 98.3 HR 75 RR 25 B/P 142/59 AC 12 TV 500 FIO2 40 PEEP 5 IS: ZOSYN IV IVF D5 @ 50ML/HR VANCO IV PREVACID GT INH GT STEP DOWN STATUS
--- NOTE | 2018-12-11 12:32 | Infectious Diseases Prog Note ---
Assessment/Plan Assessment/Plan ASSESSMENT: This is a 73-year-old gentleman with history of stroke, seizure disorder, respiratory failure, status post tracheostomy, who comes in with fevers and is found to have, 1. Bilateral pneumonia. 2. History of pulmonary tuberculosis, on therapy. 3. Seizure disorder. 4. CVA. 5. Anemia 6. Pressure ulcers PLAN: 1. Discontinue IV vancomycin, Continue Zosyn. 2. Continue isoniazid and rifampin & pyridoxine. 3. case was D/W infectious control nurse regarding TB treatment duration 4. We will f/u sputum for Gram stain and culture. 5. We will follow up cultures and adjust antibiotics accordingly Subjective ROS Limited/Unobtainable: Yes Constitutional: Reports: no symptoms Allergies: Coded Allergies: No Known Allergies (Unverified , 01/27/17) Objective Vital Signs Last 24 Hour Vital Signs Date Time Temp Pulse Resp B/P (MAP) Pulse Ox O2 Delivery O2 Flow Rate FiO2 12/11/18 10:51 70 25 40 12/11/18 08:55 75 21 40 12/11/18 08:42 75 142/59 12/11/18 08:40 75 142/89 12/11/18 08:00 98.2 75 22 142/59 (86) 100 12/11/18 08:00 Mechanical Ventilator 12/11/18 08:00 79 12/11/18 08:00 40 12/11/18 07:12 79 23 40 12/11/18 05:18 74 22 40 12/11/18 04:00 Mechanical Ventilator 12/11/18 04:00 40 12/11/18 04:00 98.9 74 22 115/60 (78) 100 12/11/18 03:42 73 12/11/18 03:09 73 21 40 12/11/18 01:00 76 27 40 12/11/18 00:00 Mechanical Ventilator 12/11/18 00:00 99.0 80 24 122/62 (82) 100 12/10/18 23:22 72 21 40 12/10/18 21:28 71 108/47 12/10/18 21:13 75 21 40 12/10/18 20:00 40 12/10/18 20:00 98.0 77 22 148/47 (80) 100 12/10/18 20:00 Mechanical Ventilator 12/10/18 20:00 76 12/10/18 19:17 79 22 40 12/10/18 17:10 77 20 40 12/10/18 16:00 97.2 63 18 101/52 (68) 100 12/10/18 16:00 40 12/10/18 16:00 62 12/10/18 16:00 Mechanical Ventilator 12/10/18 15:15 64 18 40 12/10/18 13:10 66 22 40 Height (Feet): 5 Height (Inches): 7.00 Weight (Pounds): 118 General Appearance: no acute distress, cachetic HEENT: status post trach Respiratory/Chest: lungs clear, other - on ventilator Cardiovascular: normal rate Abdomen: soft, non tender, other - GT feeding Extremities: other - edema of hands Skin: ulcers Neurologic/Psychiatric: unresponsiveness Microbiology Date/Time Source Procedure Growth Status 12/08/18 17:53 Blood Blood Culture - Preliminary NO GROWTH AFTER 48 HOURS Resulted 12/08/18 17:53 Blood Blood Culture - Preliminary NO GROWTH AFTER 48 HOURS Resulted 12/09/18 10:00 Sputum Gram Stain - Final Resulted 12/09/18 10:00 Sputum Culture - Preliminary Gram Negative Bacillus 1 Gram Negative Bacillus 2 Resulted 12/08/18 17:35 Rectum - Final NO CARBAPENEM-RESISTANT ENTEROBACTERI... Complete 12/08/18 17:35 Rectum VRE Culture - Final Enterococcus Faecium - Vre Complete Laboratory Tests Test 12/11/18 03:10 White Blood Count 9.5 K/UL (4.8-10.8) Red Blood Count 3.24 M/UL (4.70-6.10) L Hemoglobin 8.3 G/DL (14.2-18.0) L Hematocrit 26.6 % (42.0-52.0) L Mean Corpuscular Volume 82 FL (80-99) Mean Corpuscular Hemoglobin 25.7 PG (27.0-31.0) L Mean Corpuscular Hemoglobin Concent 31.4 G/DL (32.0-36.0) L Red Cell Distribution Width 17.0 % (11.6-14.8) H Platelet Count 406 K/UL (150-450) Mean Platelet Volume 5.0 FL (6.5-10.1) L Neutrophils (%) (Auto) 77.4 % (45.0-75.0) H Lymphocytes (%) (Auto) 11.2 % (20.0-45.0) L Monocytes (%) (Auto) 6.0 % (1.0-10.0) Eosinophils (%) (Auto) 5.0 % (0.0-3.0) H Basophils (%) (Auto) 0.4 % (0.0-2.0) Sodium Level 145 MMOL/L (136-145) Potassium Level 3.8 MMOL/L (3.5-5.1) Chloride Level 112 MMOL/L (98-107) H Carbon Dioxide Level 27 MMOL/L (21-32) Anion Gap 6 mmol/L (5-15) Blood Urea Nitrogen 33 mg/dL (7-18) H Creatinine 0.6 MG/DL (0.55-1.30) Estimat Glomerular Filtration Rate mL/min (>60) Glucose Level 136 MG/DL (74-106) H Calcium Level 8.2 MG/DL (8.5-10.1) L Magnesium Level 1.9 MG/DL (1.8-2.4) Total Bilirubin 0.7 MG/DL (0.2-1.0) Aspartate Amino Transf (AST/SGOT) 30 U/L (15-37) Alanine Aminotransferase (ALT/SGPT) 8 U/L (12-78) L Alkaline Phosphatase 386 U/L (46-116) H Total Protein 6.5 G/DL (6.4-8.2) Albumin 0.9 G/DL (3.4-5.0) L Globulin 5.6 g/dL Albumin/Globulin Ratio 0.2 (1.0-2.7) L Current Medications Medications (Trade) Dose Ordered Sig/Iram Route PRN Reason Start Time Stop Time Status Last Admin Dose Admin Acetaminophen (Tylenol) 650 mg DAILY GT 12/10/18 09:00 01/08/19 08:59 12/10/18 09:46 Acetaminophen (Tylenol) 650 mg Q4H PRN GT Mild Pain/Temp > 100.5 12/09/18 11:00 01/07/19 20:44 Amlodipine Besylate (Norvasc) 10 mg DAILY GT 12/09/18 09:00 01/08/19 08:59 12/11/18 08:42 Artificial Tears (Akwa-Tears) 2 drop Q4H PRN BOTH EYES DRY EYES 12/08/18 20:45 01/07/19 20:44 Ascorbic Acid (Vitamin C) 500 mg DAILY GT 12/09/18 09:00 01/08/19 08:59 12/11/18 08:38 Aspirin (ASA) 81 mg DAILY GT 12/09/18 09:00 01/08/19 08:59 12/11/18 08:38 Atorvastatin Calcium (Lipitor) 10 mg BEDTIME GT 12/08/18 21:00 01/07/19 20:59 12/10/18 21:27 Bisacodyl (Dulcolax) 10 mg DAILYPRN PRN RECTAL constipation 12/08/18 20:45 01/07/19 20:44 Dextrose 1,000 ml @ 50 mls/hr Q20H IV 12/09/18 21:00 01/08/19 20:59 12/10/18 17:25 Docusate Sodium (Colace) 100 mg DAILY GT 12/10/18 09:00 01/08/19 08:59 12/11/18 08:41 Doxazosin Mesylate (Cardura) 1 mg QHS GT 12/08/18 21:00 01/07/19 20:59 12/10/18 21:27 Heparin Sodium (Porcine) (Heparin 5000 units/ml) 5,000 units EVERY 12 HOURS SUBQ 12/09/18 09:00 01/08/19 08:59 12/11/18 08:45 Isoniazid (Inh) 300 mg DAILY GT 12/09/18 09:00 01/08/19 08:59 12/11/18 08:39 Lansoprazole (Prevacid) 30 mg Q12HR GT 12/09/18 21:00 01/07/19 20:59 12/11/18 08:38 Levetiracetam (Keppra) 750 mg Q12HR GT 12/08/18 21:00 01/07/19 20:59 12/11/18 08:39 Magnesium Hydroxide (Mom) 30 ml DAILYPRN PRN GT constipation 12/08/18 20:45 01/07/19 20:44 Metoprolol Tartrate (Lopressor) 50 mg EVERY 12 HOURS GT 12/08/18 21:00 01/07/19 20:59 12/11/18 08:40 Multivitamins Therapeutic (Therapeutic Multivitamin) 1 ea DAILY ORAL 12/09/18 09:00 01/08/19 08:59 12/11/18 08:38 Piperacillin Sod/ Tazobactam Sod 3.375 gm/Sodium Chloride 110 ml @ 27.5 mls/hr Q8H IVPB 12/09/18 16:00 12/16/18 15:59 12/11/18 08:37 Pyridoxine HCl (Vitamin B6) 50 mg DAILY GT 12/10/18 09:00 01/08/19 10:29 12/11/18 08:38 Rifampin (Rifadin) 600 mg DAILY GT 12/09/18 10:30 01/08/19 10:29 12/11/18 08:41 Sodium Phosphate (Fleet's Sodium Phosl Enema) 133 ml QOD PRN RECTAL constipation 12/10/18 09:15 01/07/19 20:44 Vancomycin HCl (Vanco rx to dose) 1 ea DAILY PRN MISC Per rx protocol 12/08/18 21:00 01/07/19 20:59 Vancomycin HCl 500 mg/Dextrose 110 ml @ 110 mls/hr Q12H IVPB 12/09/18 10:00 12/14/18 09:59 12/11/18 10:15 Zinc Sulfate (Zinc Sulfate) 220 mg DAILY GT 12/09/18 09:00 01/08/19 08:59 12/11/18 08:40 Rahul Shen MD December 11, 2018 12:32
--- NOTE | 2018-12-11 13:21 | NUR ---
*-* INSURANCE *-* UPDATED CLINICALS HAVE BEEN FAXED TO: [facility] P:[phone] F:[phone]
--- NOTE | 2018-12-11 14:00 | NUR ---
NURSE NOTES: Pt stable noted no resp distress,family members at bedside.
--- NOTE | 2018-12-11 16:01 | Surgery Progress Note ---
Surgery Progress Note Subjective Additional Comments no acute events. stable. comfortable. labs noted. Objective Last 24 Hour Vital Signs Date Time Temp Pulse Resp B/P (MAP) Pulse Ox O2 Delivery O2 Flow Rate FiO2 12/11/18 14:57 74 24 40 12/11/18 12:56 71 21 40 12/11/18 10:51 70 25 40 12/11/18 08:55 75 21 40 12/11/18 08:42 75 142/59 12/11/18 08:40 75 142/89 12/11/18 08:00 98.2 75 22 142/59 (86) 100 12/11/18 08:00 Mechanical Ventilator 12/11/18 08:00 79 12/11/18 08:00 40 12/11/18 07:12 79 23 40 12/11/18 05:18 74 22 40 12/11/18 04:00 Mechanical Ventilator 12/11/18 04:00 40 12/11/18 04:00 98.9 74 22 115/60 (78) 100 12/11/18 03:42 73 12/11/18 03:09 73 21 40 12/11/18 01:00 76 27 40 12/11/18 00:00 Mechanical Ventilator 12/11/18 00:00 99.0 80 24 122/62 (82) 100 12/10/18 23:22 72 21 40 12/10/18 21:28 71 108/47 12/10/18 21:13 75 21 40 12/10/18 20:00 40 12/10/18 20:00 98.0 77 22 148/47 (80) 100 12/10/18 20:00 Mechanical Ventilator 12/10/18 20:00 76 12/10/18 19:17 79 22 40 12/10/18 17:10 77 20 40 I&O Intake and Output 12/10/18 12/11/18 18:59 06:59 Intake Total 1770.0 ml 940.0 ml Output Total 1550 ml Balance 220.0 ml 940.0 ml Intake Free Water 150 ml 300 ml IV Total 670.0 ml 220.0 ml Tube Feeding 700 ml 420 ml Blood Product 250 ml Output Urine Total 1550 ml # Bowel Movements 2 1 Dressing: saturated Wound: other Drains: other Cardiovascular: RSR Respiratory: decreased breath sounds Abdomen: soft, present bowel sounds Extremities: no tenderness, no cyanosis Laboratory Tests Test 12/11/18 03:10 White Blood Count 9.5 K/UL (4.8-10.8) Red Blood Count 3.24 M/UL (4.70-6.10) L Hemoglobin 8.3 G/DL (14.2-18.0) L Hematocrit 26.6 % (42.0-52.0) L Mean Corpuscular Volume 82 FL (80-99) Mean Corpuscular Hemoglobin 25.7 PG (27.0-31.0) L Mean Corpuscular Hemoglobin Concent 31.4 G/DL (32.0-36.0) L Red Cell Distribution Width 17.0 % (11.6-14.8) H Platelet Count 406 K/UL (150-450) Mean Platelet Volume 5.0 FL (6.5-10.1) L Neutrophils (%) (Auto) 77.4 % (45.0-75.0) H Lymphocytes (%) (Auto) 11.2 % (20.0-45.0) L Monocytes (%) (Auto) 6.0 % (1.0-10.0) Eosinophils (%) (Auto) 5.0 % (0.0-3.0) H Basophils (%) (Auto) 0.4 % (0.0-2.0) Sodium Level 145 MMOL/L (136-145) Potassium Level 3.8 MMOL/L (3.5-5.1) Chloride Level 112 MMOL/L (98-107) H Carbon Dioxide Level 27 MMOL/L (21-32) Anion Gap 6 mmol/L (5-15) Blood Urea Nitrogen 33 mg/dL (7-18) H Creatinine 0.6 MG/DL (0.55-1.30) Estimat Glomerular Filtration Rate mL/min (>60) Glucose Level 136 MG/DL (74-106) H Calcium Level 8.2 MG/DL (8.5-10.1) L Magnesium Level 1.9 MG/DL (1.8-2.4) Total Bilirubin 0.7 MG/DL (0.2-1.0) Aspartate Amino Transf (AST/SGOT) 30 U/L (15-37) Alanine Aminotransferase (ALT/SGPT) 8 U/L (12-78) L Alkaline Phosphatase 386 U/L (46-116) H Total Protein 6.5 G/DL (6.4-8.2) Albumin 0.9 G/DL (3.4-5.0) L Globulin 5.6 g/dL Albumin/Globulin Ratio 0.2 (1.0-2.7) L Plan Problems: (1) Decubitus ulcer Assessment & Plan: Pt presented on admission with multiple full thickness pressure injuries. Skin assessed under trach collar and no evidence of skin breakdown noted. Unstageable pressure injury with 100% yellow slough noted to L earlobe. Periwound skin tone is darker without erythema . No odor or exudate noted.( L00.3cm x (W)0.4cm. Hyperpigmentation from previous wound noted to R scapula noted and stable/ healing. 2x Full thickness pressure injuries noted to thoracic spine.(#1Proximally)Full thickness pressure injury with 95% yellow slough at base of wound with erythematous borders.Periwound skin tone is darker without induration or fluctuance.No odor or exudate noted(L)2.3cm x (W)1.7cm. (#2 inferior)Full thickness pressure injury with 60% loose fibrinous slough,10% necrosis,30% red granulation. Edges adherent to base of wound and are flat. Small amt seropurulent ,non-odorous exudate noted. Additionally,scattered partial thickness wounds noted periwound. R of thoracic spine Small full thickness pressure injury with 100% yellow slough at base of wound. Edges adherent and flat. No odor or exudate noted. (L) 0.6cm x (W)0.5cm. Full thickness pressure injury to lumbar spine. Base of wound with scattered slough ,10% necrosis. (+) maceration along borders. Darker skin tone without elevation in skin temp ,induration or fluctuance periwound.(L)4.5cm x (W)5cm. Full thickness pressure injury noted to R Iliac.Base of wound has 75% yellow slough,25% beefy red,(+) maceration along borders. Small amt non-odorous serous exudate noted.(L)4.8cm x (W)4cm.At base of R iliac pressure injury an area of darker skin tone that is indurated noted (L) 4.5cm x (W)6cm. Full thickness pressure injury L Iliac. 80% yellow/velazquez slough,20% erythematous. edges adherent and flat. Periwound withot erythema or induration. (L)3.3cm x (W)3.5cm. NO odor or exudate noted. Full thickness pressure injury noted to R trochanter with undermining. 80% yellow/velazquez slough,20% erythematous at base. Bone is palpable. (+) maceration along borders.Darker skin tone with induration periwound. No elevation in skin temp noted.Small amt non-odorous seropurulent exudate noted.(L)4.5cm x (W) 6.3cmx (D)2.8cm, Undermining 12-12 by 2.6cm @9o'clock. DTPI noted to R hip.Base of indurated and black in colour.(L)2cm x (W)5.7cm. Full thickness sacral pressure injury.25% yellow slough,75%erythematous.Edges adherent and flat. (L)8.7cm x (W)5.2cm x (W)2cm. In addition to sacral wound, periwound noted to have multiple small wounds that are pink and dry. Partial thickness pressure injury posterior upper R thigh.Base of wound moist viable.Edges loose and darker than is normal skin tone.Periwound without induration or elevation in skin temp.Small amt serosanguineous exudate noted (L) 1.5cm x (W)1.3cm. Full thickness pressure injury L trochanter.100% soft brown/black necrosis noted at base of wound. Erythematous borders. Small amt non-odorous brown exudate noted. Periwound indurated with darker skin tone. (L)4.5cm x (W)4.2cm. R heel boggy with non-blanchable erythema .Historical scar noted to R heel. DTPI L heel noted. Maroon discoloration with fluctuance centrally ,indurated borders noted.(L)3.5cm x (W)2cm. Tx.Plan: Cleanse wounds Thoracic spine,R and L of thoracic with Saline. Apply Therahoney.Apply Triad periwound. Cover each wound with Optifoam drsgs. Change every 3 days and prn. Cleanse wound R trochanter with Saline. Apply Therahoney. Apply Triad periwound. Cover with Optifoam drsg every 3 days and prn. Cleanse wound Lumbar spine with Saline. Apply Therahoney.Apply Triad paste periwound. Cover with Optifoam drsg every 3 days and prn. Cleanse wound L trochanter with Saline. Apply Therahoney.Apply Triad Paste periwound. Cover with Optifoam drsg every 3 days and prn. Cleanse wound posterior upper R thigh with saline.Apply Triad Paste .cover with Optifoam drsg .Change every 3 days and prn. Cleanse wounds R and L Iliac with Saline. Apply Therahoney.Apply Therahoney periwound. Cover with Optifoam drsg every 3 days and prn. Cleanse L earlobe with Saline. Apply Therahoney. Cover with Optifoam drsg. Change Daily and prn. Apply Cavilon Skin Barrier to R and L heels .Cover each heel with Optifoam drsgs. Change every 7 days and prn. Apply Cavilon Skin BArrier to Medial aspects of R and L knees. Cover each knee with Optifoam drsg. Change every 7 days and prn. Air Fluidized Mattress. Reposition at least every 2hours or as tolerated. Off-load heels with pillow. (2) Sepsis Assessment & Plan: On Abx CXR Monitor labs (3) Dehydration Assessment & Plan: On IV fluids okay to resume tube feeds (4) Respiratory distress Assessment & Plan: on vent via trach cont w/ breathing treatments (5) Abnormal LFTs Assessment & Plan: alk phos elevated trend for now * Nodular contour of the liver suggestive of cirrhosis. This has been previously described. No focal hepatic mass lesion appreciated sonographically. * Splenomegaly with the spleen measuring 15 .4 cm in length. Trace ascites also noted. Findings may indicate portal hypertension. * Status post cholecystectomy. No biliary ductal dilatation. * Simple appearing left renal cyst. * Left pleural effusion partially visualized. Zev Candelaria December 11, 2018 16:01
--- NOTE | 2018-12-11 17:00 | NUR ---
NURSE NOTES: Bed bath given,dressing change to wounds ,turned and repositioned kept dry and clean.
--- NOTE | 2018-12-11 19:25 | NUR ---
HAND-OFF: Report given to Babs Miller.
--- NOTE | 2018-12-11 19:25 | NUR ---
NURSE NOTES: Received report from Radha Mccoy RN. Patient is asleep in bed, obtunded, arousable to shaking. Sinus rhythm on marriage and family therapist. No s/s of acute distress noted. Saturating well on trach-vent settings: Portex 7, AC 12, vT 500, FiO2 40%, PEEP 5. Receiving Vital AF @ 70 cc/hr via GT, tolerating well. Manzo catheter intact and draining well to gravity. Right hand 22g IV, intact and patent; left hand 24g IV, intact and patent. Bed locked in lowest position with padded side rails up x3. Call light left within reach. Will continue to monitor. Addendum: 12/11/18 at 2308 by RANDI ANN RN arousable to shaking and deep pain
[2018-12-11] MEDS ORDERED: Sterile Water Irrig 1000ml IRRIG ONE (19:55)
[2018-12-11] MEDS ORDERED: Tubing IV Secondary IV ONE ×2 (19:55→20:05)
[2018-12-11] MEDS ORDERED: NS 275ml ONE ×2 (19:55→20:05)
[2018-12-11] MEDS ORDERED: Tubing Blood Filter IV ONE ×2 (19:55→20:05)
[2018-12-11] MEDS: Doxazosin 1mg Tab GT SCH (20:53)
--- NOTE | 2018-12-11 22:00 | NUR ---
NURSE NOTES: Lab orders received from Dr. Thalia MD. Noted and carried out.
[2018-12-12] VITALS: BP 132/64
[2018-12-12] MEDS: Piperacillin/Tazobactam 3.375 GM in NS 110 ML IVPB SCH ×2 (00:01→08:15)
[2018-12-12 04:00] VITALS: BP 135/73
[2018-12-12 04:40] LABS: BASOPHILS % (AUTO) 0.4 % (0.0-2.0); EOSINOPHILS % (AUTO) 4.5 % (0.0-3.0); HEMATOCRIT 28.5 % (42.0-52.0); HEMOGLOBIN 8.9 G/DL (14.2-18.0); LYMPHOCYTES % (AUTO) 11.3 % (20.0-45.0); MEAN CORPUSCULAR VOLUME 81 FL (80-99); MONOCYTES % (AUTO) 6.7 % (1.0-10.0); NEUTROPHILS % (AUTO) 77.1 % (45.0-75.0); PLATELET COUNT 409 K/UL (150-450); RED BLOOD COUNT 3.52 M/UL (4.70-6.10); RED CELL DISTRIBUTION WIDTH 17.2 % (11.6-14.8); WHITE BLOOD COUNT 10.8 K/UL (4.8-10.8)
[2018-12-12 04:54] LABS: ALANINE AMINOTRANSFERASE 8 U/L (12-78); ALBUMIN 0.9 G/DL (3.4-5.0); ALBUMIN/GLOBULIN RATIO 0.1 (1.0-2.7); ALKALINE PHOSPHATASE 421 U/L (46-116); ANION GAP 6 mmol/L (5-15); ASPARTATE AMINO TRANSFERASE 32 U/L (15-37); BILIRUBIN,TOTAL 0.8 MG/DL (0.2-1.0); BLOOD UREA NITROGEN 29 mg/dL (7-18); CALCIUM 8.1 MG/DL (8.5-10.1); CARBON DIOXIDE 27 MMOL/L (21-32); CHLORIDE 108 MMOL/L (98-107); CREATININE 0.6 MG/DL (0.55-1.30); SODIUM 141 MMOL/L (136-145)
--- NOTE | 2018-12-12 07:25 | NUR ---
HAND-OFF: Report given to Daniella Moeller RN and Mellisa Ulloa RN.
--- NOTE | 2018-12-12 07:49 | NUR ---
NURSE NOTES: Received report from LALA Alcala. Observed patient in bed, obtunded, nonverbal, and unable to make needs known. Trach-vent with settings AC 12, TV 500, FIO2 40%, and PEEP 5. No distress noted. GT intact with feeding infusing at prescribed rate, tolerating well, no residuals. HOB elevated. Manzo catheter intact and draining well. IV site on right hand and left hand intact and patent. Bed in lowest position, side rails up x3, call light within reach. Will continue to monitor.
[2018-12-12 08:00] VITALS: BP 125/59
[2018-12-12] MEDS: Acetaminophen 650mg/20.3ml GT SCH (08:47)
[2018-12-12] MEDS: Docusate 100mg/10ml Liq GT SCH (08:47)
[2018-12-12] MEDS: Pyridoxine 50mg tab GT SCH (08:49)
[2018-12-12] MEDS: Aspirin Baby 81mg GT SCH (08:49)
[2018-12-12] MEDS: Zinc Sulfate 220mg cap GT SCH (08:49)
[2018-12-12] MEDS: Multivitamin w/Minerals tab ORAL SCH (08:49)
[2018-12-12] MEDS: Metoprolol Tartrate 50mg tab GT SCH ×2 (08:49→20:15)
[2018-12-12] MEDS: Ascorbic Acid 500mg tab GT SCH (08:50)
[2018-12-12] MEDS: Isoniazid 300mg tab GT SCH (08:50)
[2018-12-12] MEDS: levETIRAcetam 500mg/5ml Liquid GT SCH ×2 (08:51→20:14)
[2018-12-12] MEDS: Heparin 5000 units/ml inj SUBQ SCH ×2 (08:51→20:17)
--- NOTE | 2018-12-12 08:52 | Pulmonology Progress Note ---
Assessment/Plan Assessment/Plan ASSESSMENT: history of stroke, respiratory failure, hypernatremia, acute on chronic renal failure, chronic encephalopathy, seizure disorder, pulmonary tuberculosis, and anemia possible sepsis, pneumonia PLAN overnight events noted IV antibiotics reviewed respiratory care Ventilatory support full no wean SNF meds noted supportive care hypotonic fluids suction and monitor no wean planned monitor imaging and labs support as needed oxygen therapy noted prognosis guarded; consider DNR impression, plan, and exam edited and reviewed in detail care discussed with RN Subjective ROS Limited/Unobtainable: Yes Allergies: Coded Allergies: No Known Allergies (Unverified , 01/27/17) Subjective care noted on vent bed bound reviewed care Objective Last 24 Hour Vital Signs Date Time Temp Pulse Resp B/P (MAP) Pulse Ox O2 Delivery O2 Flow Rate FiO2 12/12/18 08:00 99.5 87 29 125/59 (81) 100 12/12/18 07:07 87 26 30 40 12/12/18 05:25 89 22 30 40 12/12/18 04:00 40 12/12/18 04:00 98.1 87 28 135/73 (93) 100 12/12/18 04:00 Mechanical Ventilator 12/12/18 03:33 83 12/12/18 03:30 84 24 30 40 12/12/18 01:15 83 24 30 40 12/12/18 00:00 Mechanical Ventilator 12/12/18 00:00 99.1 78 24 132/64 (86) 100 12/11/18 23:31 76 12/11/18 23:00 82 26 30 40 12/11/18 21:13 72 26 30 40 12/11/18 20:53 84 130/65 12/11/18 20:00 97.9 84 20 130/65 (86) 100 12/11/18 20:00 79 12/11/18 20:00 40 12/11/18 20:00 Mechanical Ventilator 12/11/18 19:11 78 30 30 40 12/11/18 17:06 80 27 40 12/11/18 16:00 71 12/11/18 16:00 97.7 69 24 131/67 (88) 100 12/11/18 16:00 Mechanical Ventilator 12/11/18 16:00 40 12/11/18 14:57 74 24 40 12/11/18 12:56 71 21 40 12/11/18 12:01 97.2 70 24 122/57 (78) 100 12/11/18 12:00 Mechanical Ventilator 12/11/18 12:00 40 12/11/18 12:00 71 12/11/18 10:51 70 25 40 12/11/18 08:55 75 21 40 Intake and Output 12/11/18 12/12/18 19:00 07:00 Intake Total 1677.5 ml 1489.11773 ml Output Total 650 ml Balance 1027.5 ml 1489.83624 ml Intake Free Water 200 ml 300 ml IV Total 577.5 ml 699.89473 ml Tube Feeding 840 ml 490 ml Other 60 ml Output Urine Total 650 ml # Bowel Movements 2 1 Objective on vent chronically ill trach clear breath sounds bilaterally without rhonchi or wheeze [id number] without MRG NABS nontender no HSM; Gt no CCE; contractures nonfocal Microbiology Date/Time Source Procedure Growth Status 12/09/18 10:00 Sputum Gram Stain - Final Resulted 12/09/18 10:00 Sputum Culture - Preliminary Pseudomonas Aeruginosa - Mdr Stenotrophomonas Maltophilia Resulted Laboratory Tests 12/12/18 04:05: White Blood Count 10.8, Red Blood Count 3.52L, Hemoglobin 8.9L, Hematocrit 28.5L , Mean Corpuscular Volume 81, Mean Corpuscular Hemoglobin 25.3L, Mean Corpuscular Hemoglobin Concent 31.3L, Red Cell Distribution Width 17.2H, Platelet Count 409, Mean Platelet Volume 5.1L, Neutrophils (%) (Auto) 77.1H, Lymphocytes (%) (Auto) 11.3L, Monocytes (%) (Auto) 6.7, Eosinophils (%) (Auto) 4.5H, Basophils (%) (Auto) 0.4, Sodium Level 141, Potassium Level 4.0, Chloride Level 108H, Carbon Dioxide Level 27, Anion Gap 6, Blood Urea Nitrogen 29H, Creatinine 0.6, Estimat Glomerular Filtration Rate , Glucose Level 103, Calcium Level 8.1L, Total Bilirubin 0.8, Aspartate Amino Transf (AST/SGOT) 32, Alanine Aminotransferase (ALT/SGPT) 8L, Alkaline Phosphatase 421H, Total Protein 6.9, Albumin 0.9L, Globulin 6.0, Albumin/Globulin Ratio 0.1L Current Medications Medications (Trade) Dose Ordered Sig/Iram Route PRN Reason Start Time Stop Time Status Last Admin Dose Admin Acetaminophen (Tylenol) 650 mg DAILY GT 12/10/18 09:00 01/08/19 08:59 12/10/18 09:46 Acetaminophen (Tylenol) 650 mg Q4H PRN GT Mild Pain/Temp > 100.5 12/09/18 11:00 01/07/19 20:44 Amlodipine Besylate (Norvasc) 10 mg DAILY GT 12/09/18 09:00 01/08/19 08:59 12/11/18 08:42 Artificial Tears (Akwa-Tears) 2 drop Q4H PRN BOTH EYES DRY EYES 12/08/18 20:45 01/07/19 20:44 Ascorbic Acid (Vitamin C) 500 mg DAILY GT 12/09/18 09:00 01/08/19 08:59 12/11/18 08:38 Aspirin (ASA) 81 mg DAILY GT 12/09/18 09:00 01/08/19 08:59 12/11/18 08:38 Atorvastatin Calcium (Lipitor) 10 mg BEDTIME GT 12/08/18 21:00 01/07/19 20:59 12/11/18 20:53 Bisacodyl (Dulcolax) 10 mg DAILYPRN PRN RECTAL constipation 12/08/18 20:45 01/07/19 20:44 Dextrose 1,000 ml @ 50 mls/hr Q20H IV 12/09/18 21:00 01/08/19 20:59 12/11/18 16:25 Docusate Sodium (Colace) 100 mg DAILY GT 12/10/18 09:00 01/08/19 08:59 12/11/18 08:41 Doxazosin Mesylate (Cardura) 1 mg QHS GT 12/08/18 21:00 01/07/19 20:59 12/11/18 20:53 Heparin Sodium (Porcine) (Heparin 5000 units/ml) 5,000 units EVERY 12 HOURS SUBQ 12/09/18 09:00 01/08/19 08:59 12/11/18 20:55 Isoniazid (Inh) 300 mg DAILY GT 12/09/18 09:00 01/08/19 08:59 12/11/18 08:39 Lansoprazole (Prevacid) 30 mg Q12HR GT 12/09/18 21:00 01/07/19 20:59 12/11/18 20:53 Levetiracetam (Keppra) 750 mg Q12HR GT 12/08/18 21:00 01/07/19 20:59 12/11/18 20:54 Magnesium Hydroxide (Mom) 30 ml DAILYPRN PRN GT constipation 12/08/18 20:45 01/07/19 20:44 Metoprolol Tartrate (Lopressor) 50 mg EVERY 12 HOURS GT 12/08/18 21:00 01/07/19 20:59 12/11/18 20:53 Multivitamins Therapeutic (Therapeutic Multivitamin) 1 ea DAILY ORAL 12/09/18 09:00 01/08/19 08:59 12/11/18 08:38 Piperacillin Sod/ Tazobactam Sod 3.375 gm/Sodium Chloride 110 ml @ 27.5 mls/hr Q8H IVPB 12/09/18 16:00 12/16/18 15:59 12/12/18 08:15 Pyridoxine HCl (Vitamin B6) 50 mg DAILY GT 12/10/18 09:00 01/08/19 10:29 12/11/18 08:38 Rifampin (Rifadin) 600 mg DAILY GT 12/09/18 10:30 01/08/19 10:29 12/11/18 08:41 Sodium Phosphate (Fleet's Sodium Phosl Enema) 133 ml QOD PRN RECTAL constipation 12/10/18 09:15 01/07/19 20:44 Zinc Sulfate (Zinc Sulfate) 220 mg DAILY GT 12/09/18 09:00 01/08/19 08:59 12/11/18 08:40 Nakul Cisse MD December 12, 2018 08:52
--- NOTE | 2018-12-12 10:32 | Infectious Diseases Prog Note ---
"Assessment/Plan Assessment/Plan antibiotics : zosyn, isoniazid, rifampin, pyridoxine A 1. pseudomonas | stenotrophomonas pneumonia 2. pulmonary tuberculosis 3. respiratory failure 4. 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 d/c zosyn 2. start levoquin, inhaled colistin 3. continue isoniazid, rifampin, pyridoxine 4. will follow up cultures Subjective ROS Limited/Unobtainable: Yes Allergies: Coded Allergies: No Known Allergies (Unverified , 01/27/17) Objective Vital Signs Last 24 Hour Vital Signs Date Time Temp Pulse Resp B/P (MAP) Pulse Ox O2 Delivery O2 Flow Rate FiO2 12/12/18 09:10 81 28 30 40 12/12/18 08:49 87 125/59 12/12/18 08:49 87 125/59 12/12/18 08:00 Mechanical Ventilator 12/12/18 08:00 40 12/12/18 08:00 99.5 87 29 125/59 (81) 100 12/12/18 07:26 89 12/12/18 07:07 87 26 30 40 12/12/18 05:25 89 22 30 40 12/12/18 04:00 40 12/12/18 04:00 98.1 87 28 135/73 (93) 100 12/12/18 04:00 Mechanical Ventilator 12/12/18 03:33 83 12/12/18 03:30 84 24 30 40 12/12/18 01:15 83 24 30 40 12/12/18 00:00 Mechanical Ventilator 12/12/18 00:00 99.1 78 24 132/64 (86) 100 12/11/18 23:31 76 12/11/18 23:00 82 26 30 40 12/11/18 21:13 72 26 30 40 12/11/18 20:53 84 130/65 12/11/18 20:00 97.9 84 20 130/65 (86) 100 12/11/18 20:00 79 12/11/18 20:00 40 12/11/18 20:00 Mechanical Ventilator 12/11/18 19:11 78 30 30 40 12/11/18 17:06 80 27 40 12/11/18 16:00 71 12/11/18 16:00 97.7 69 24 131/67 (88) 100 5/9/19 16:00 Mechanical Ventilator 12/11/18 16:00 40 12/11/18 14:57 74 24 40 12/11/18 12:56 71 21 40 12/11/18 12:01 97.2 70 24 122/57 (78) 100 12/11/18 12:00 Mechanical Ventilator 12/11/18 12:00 40 12/11/18 12:00 71 12/11/18 10:51 70 25 40 Height (Feet): 5 Height (Inches): 7.00 Weight (Pounds): 118 HEENT: status post trach Respiratory/Chest: lungs clear Cardiovascular: normal rate, regular rhythm, no gallop/murmur Abdomen: soft, non tender, other - GT Extremities: no edema Laboratory Tests Test 12/12/18 04:05 White Blood Count 10.8 K/UL (4.8-10.8) Red Blood Count 3.52 M/UL (4.70-6.10) L Hemoglobin 8.9 G/DL (14.2-18.0) L Hematocrit 28.5 % (42.0-52.0) L Mean Corpuscular Volume 81 FL (80-99) Mean Corpuscular Hemoglobin 25.3 PG (27.0-31.0) L Mean Corpuscular Hemoglobin Concent 31.3 G/DL (32.0-36.0) L Red Cell Distribution Width 17.2 % (11.6-14.8) H Platelet Count 409 K/UL (150-450) Mean Platelet Volume 5.1 FL (6.5-10.1) L Neutrophils (%) (Auto) 77.1 % (45.0-75.0) H Lymphocytes (%) (Auto) 11.3 % (20.0-45.0) L Monocytes (%) (Auto) 6.7 % (1.0-10.0) Eosinophils (%) (Auto) 4.5 % (0.0-3.0) H Basophils (%) (Auto) 0.4 % (0.0-2.0) Sodium Level 141 MMOL/L (136-145) Potassium Level 4.0 MMOL/L (3.5-5.1) Chloride Level 108 MMOL/L (98-107) H Carbon Dioxide Level 27 MMOL/L (21-32) Anion Gap 6 mmol/L (5-15) Blood Urea Nitrogen 29 mg/dL (7-18) H Creatinine 0.6 MG/DL (0.55-1.30) Estimat Glomerular Filtration Rate mL/min (>60) Glucose Level 103 MG/DL (74-106) Calcium Level 8.1 MG/DL (8.5-10.1) L Total Bilirubin 0.8 MG/DL (0.2-1.0) Aspartate Amino Transf (AST/SGOT) 32 U/L (15-37) Alanine Aminotransferase (ALT/SGPT) 8 U/L (12-78) L Alkaline Phosphatase 421 U/L (46-116) H Total Protein 6.9 G/DL (6.4-8.2) Albumin 0.9 G/DL (3.4-5.0) L Globulin 6.0 g/dL Albumin/Globulin Ratio 0.1 (1.0-2.7) L Current Medications Medications (Trade) Dose Ordered Sig/Iram Route PRN Reason Start Time Stop Time Status Last Admin Dose Admin Acetaminophen (Tylenol) 650 mg DAILY GT 12/10/18 09:00 01/08/19 08:59 12/12/18 08:47 Acetaminophen (Tylenol) 650 mg Q4H PRN GT Mild Pain/Temp > 100.5 12/09/18 11:00 01/07/19 20:44 Amlodipine Besylate (Norvasc) 10 mg DAILY GT 12/09/18 09:00 01/08/19 08:59 12/12/18 08:49 Artificial Tears (Akwa-Tears) 2 drop Q4H PRN BOTH EYES DRY EYES 12/08/18 20:45 01/07/19 20:44 Ascorbic Acid (Vitamin C) 500 mg DAILY GT 12/09/18 09:00 01/08/19 08:59 12/12/18 08:50 Aspirin (ASA) 81 mg DAILY GT 12/09/18 09:00 01/08/19 08:59 12/12/18 08:49 Atorvastatin Calcium (Lipitor) 10 mg BEDTIME GT 12/08/18 21:00 01/07/19 20:59 12/11/18 20:53 Bisacodyl (Dulcolax) 10 mg DAILYPRN PRN RECTAL constipation 12/08/18 20:45 01/07/19 20:44 Docusate Sodium (Colace) 100 mg DAILY GT 12/10/18 09:00 01/08/19 08:59 12/12/18 08:47 Doxazosin Mesylate (Cardura) 1 mg QHS GT 12/08/18 21:00 01/07/19 20:59 12/11/18 20:53 Heparin Sodium (Porcine) (Heparin 5000 units/ml) 5,000 units EVERY 12 HOURS SUBQ 12/09/18 09:00 01/08/19 08:59 12/12/18 08:51 Isoniazid (Inh) 300 mg DAILY GT 12/09/18 09:00 01/08/19 08:59 12/12/18 08:50 Lansoprazole (Prevacid) 30 mg Q12HR GT 12/09/18 21:00 01/07/19 20:59 12/12/18 08:49 Levetiracetam (Keppra) 750 mg Q12HR GT 12/08/18 21:00 01/07/19 20:59 12/12/18 08:51 Magnesium Hydroxide (Mom) 30 ml DAILYPRN PRN GT constipation 12/08/18 20:45 01/07/19 20:44 Metoprolol Tartrate (Lopressor) 50 mg EVERY 12 HOURS GT 12/08/18 21:00 01/07/19 20:59 12/12/18 08:49 Multivitamins Therapeutic (Therapeutic Multivitamin) 1 ea DAILY ORAL 12/09/18 09:00 01/08/19 08:59 12/12/18 08:49 Piperacillin Sod/ Tazobactam Sod 3.375 gm/Sodium Chloride 110 ml @ 27.5 mls/hr Q8H IVPB 12/09/18 16:00 12/16/18 15:59 12/12/18 08:15 Pyridoxine HCl (Vitamin B6) 50 mg DAILY GT 12/10/18 09:00 01/08/19 10:29 12/12/18 08:49 Rifampin (Rifadin) 600 mg DAILY GT 12/09/18 10:30 01/08/19 10:29 12/12/18 08:50 Sodium Phosphate (Fleet's Sodium Phosl Enema) 133 ml QOD PRN RECTAL constipation 12/10/18 09:15 01/07/19 20:44 Zinc Sulfate (Zinc Sulfate) 220 mg DAILY GT 12/09/18 09:00 01/08/19 08:59 12/12/18 08:49 Sergio Urban MD December 12, 2018 10:32"
[2018-12-12] MEDS: Levofloxacin 500mg tab ORAL SCH (11:13)
--- NOTE | 2018-12-12 11:28 | NUR ---
RD ASSESSMENT & RECOMMENDATIONS SEE CARE ACTIVITY FOR COMPLETE ASSESSMENT DAILY ESTIMATED NEEDS: Needs based on Underweight, TF [employer], Critical care, wounds/49.5kg 30-40 kcals/kg 8593-9147 total kcals 1.5-2 g protein/kg 74-99 g total protein 25-30 mL/kg 1769-7049 total fluid mLs NUTRITION DIAGNOSIS: 1) Swallowing difficulty r/t dysphagia, respiratory status as evidenced by pt is PEG dep, trach/vent dep. . 2) Increased kcal/prot needs R/T underweight status and wound healing as evidenced by low BMI under guidelines, noted w/ mod-severe generalized wasting, pt w/ multiple advanced wounds, see WC eval. CURRENT TF: Vital AF 1.2 @70ml /hr x20 hrs ENTERAL NUTRITION RECOMMENDATIONS: MAINTAIN Vital AF 1.2 @ 70ml/hr x20 hrs to provide 1400ml, 1680kcal, 105g prot, 809ml free water - Meets 100% est kcal and protein needs. - HOB over 30 degrees/ water flush per MD ADDITIONAL RECOMMENDATIONS: 1) Via GT add YOVANI w/ 4-6oz fluid BID for wound care 2) RECALIBRATE BED SCALE FOR ACCURATE CBW + weekly wts given underweight status 3) Check lytes daily, replete as needed 4) Monitor BGs closely, need for SSI 5) DC D5 IVF- Na now wnl, TF @ goal
[2018-12-12 12:00] VITALS: BP 115/60
--- NOTE | 2018-12-12 14:08 | Surgery Progress Note ---
Surgery Progress Note Subjective Additional Comments no acute events. stable. comfortable. dressings changed. Objective Last 24 Hour Vital Signs Date Time Temp Pulse Resp B/P (MAP) Pulse Ox O2 Delivery O2 Flow Rate FiO2 12/12/18 13:05 71 25 30 40 12/12/18 12:00 97.7 74 26 115/60 (78) 100 12/12/18 12:00 40 12/12/18 12:00 Mechanical Ventilator 12/12/18 10:41 74 28 30 40 12/12/18 09:17 97.7 12/12/18 09:10 81 28 30 40 12/12/18 08:49 87 125/59 12/12/18 08:49 87 125/59 12/12/18 08:00 Mechanical Ventilator 12/12/18 08:00 40 12/12/18 08:00 99.5 87 29 125/59 (81) 100 12/12/18 07:26 89 12/12/18 07:07 87 26 30 40 12/12/18 05:25 89 22 30 40 12/12/18 04:00 40 12/12/18 04:00 98.1 87 28 135/73 (93) 100 12/12/18 04:00 Mechanical Ventilator 12/12/18 03:33 83 12/12/18 03:30 84 24 30 40 12/12/18 01:15 83 24 30 40 12/12/18 00:00 Mechanical Ventilator 12/12/18 00:00 99.1 78 24 132/64 (86) 100 12/11/18 23:31 76 12/11/18 23:00 82 26 30 40 12/11/18 21:13 72 26 30 40 12/11/18 20:53 84 130/65 12/11/18 20:00 97.9 84 20 130/65 (86) 100 12/11/18 20:00 79 12/11/18 20:00 40 12/11/18 20:00 Mechanical Ventilator 12/11/18 19:11 78 30 30 40 12/11/18 17:06 80 27 40 12/11/18 16:00 71 12/11/18 16:00 97.7 69 24 131/67 (88) 100 12/11/18 16:00 Mechanical Ventilator 12/11/18 16:00 40 12/11/18 14:57 74 24 40 I&O Intake and Output 12/11/18 12/12/18 19:00 07:00 Intake Total 1677.5 ml 1539.08409 ml Output Total 650 ml Balance 1027.5 ml 1539.13254 ml Intake Free Water 200 ml 300 ml IV Total 577.5 ml 749.68496 ml Tube Feeding 840 ml 490 ml Other 60 ml Output Urine Total 650 ml # Bowel Movements 2 1 Dressing: saturated Wound: other Drains: other Cardiovascular: RSR Respiratory: decreased breath sounds Abdomen: soft, present bowel sounds, non-distended Extremities: no cyanosis, other Laboratory Tests Test 12/12/18 04:05 White Blood Count 10.8 K/UL (4.8-10.8) Red Blood Count 3.52 M/UL (4.70-6.10) L Hemoglobin 8.9 G/DL (14.2-18.0) L Hematocrit 28.5 % (42.0-52.0) L Mean Corpuscular Volume 81 FL (80-99) Mean Corpuscular Hemoglobin 25.3 PG (27.0-31.0) L Mean Corpuscular Hemoglobin Concent 31.3 G/DL (32.0-36.0) L Red Cell Distribution Width 17.2 % (11.6-14.8) H Platelet Count 409 K/UL (150-450) Mean Platelet Volume 5.1 FL (6.5-10.1) L Neutrophils (%) (Auto) 77.1 % (45.0-75.0) H Lymphocytes (%) (Auto) 11.3 % (20.0-45.0) L Monocytes (%) (Auto) 6.7 % (1.0-10.0) Eosinophils (%) (Auto) 4.5 % (0.0-3.0) H Basophils (%) (Auto) 0.4 % (0.0-2.0) Sodium Level 141 MMOL/L (136-145) Potassium Level 4.0 MMOL/L (3.5-5.1) Chloride Level 108 MMOL/L (98-107) H Carbon Dioxide Level 27 MMOL/L (21-32) Anion Gap 6 mmol/L (5-15) Blood Urea Nitrogen 29 mg/dL (7-18) H Creatinine 0.6 MG/DL (0.55-1.30) Estimat Glomerular Filtration Rate mL/min (>60) Glucose Level 103 MG/DL (74-106) Calcium Level 8.1 MG/DL (8.5-10.1) L Total Bilirubin 0.8 MG/DL (0.2-1.0) Aspartate Amino Transf (AST/SGOT) 32 U/L (15-37) Alanine Aminotransferase (ALT/SGPT) 8 U/L (12-78) L Alkaline Phosphatase 421 U/L (46-116) H Total Protein 6.9 G/DL (6.4-8.2) Albumin 0.9 G/DL (3.4-5.0) L Globulin 6.0 g/dL Albumin/Globulin Ratio 0.1 (1.0-2.7) L Plan Problems: (1) Decubitus ulcer Assessment & Plan: Pt presented on admission with multiple full thickness pressure injuries. Skin assessed under trach collar and no evidence of skin breakdown noted. Unstageable pressure injury with 100% yellow slough noted to L earlobe. Periwound skin tone is darker without erythema . No odor or exudate noted.( L00.3cm x (W)0.4cm. Hyperpigmentation from previous wound noted to R scapula noted and stable/ healing. 2x Full thickness pressure injuries noted to thoracic spine.(#1Proximally)Full thickness pressure injury with 95% yellow slough at base of wound with erythematous borders.Periwound skin tone is darker without induration or fluctuance.No odor or exudate noted(L)2.3cm x (W)1.7cm. (#2 inferior)Full thickness pressure injury with 60% loose fibrinous slough,10% necrosis,30% red granulation. Edges adherent to base of wound and are flat. Small amt seropurulent ,non-odorous exudate noted. Additionally,scattered partial thickness wounds noted periwound. R of thoracic spine Small full thickness pressure injury with 100% yellow slough at base of wound. Edges adherent and flat. No odor or exudate noted. (L) 0.6cm x (W)0.5cm. Full thickness pressure injury to lumbar spine. Base of wound with scattered slough ,10% necrosis. (+) maceration along borders. Darker skin tone without elevation in skin temp ,induration or fluctuance periwound.(L)4.5cm x (W)5cm. Full thickness pressure injury noted to R Iliac.Base of wound has 75% yellow slough,25% beefy red,(+) maceration along borders. Small amt non-odorous serous exudate noted.(L)4.8cm x (W)4cm.At base of R iliac pressure injury an area of darker skin tone that is indurated noted (L) 4.5cm x (W)6cm. Full thickness pressure injury L Iliac. 80% yellow/velazquez slough,20% erythematous. edges adherent and flat. Periwound withot erythema or induration. (L)3.3cm x (W)3.5cm. NO odor or exudate noted. Full thickness pressure injury noted to R trochanter with undermining. 80% yellow/velazquez slough,20% erythematous at base. Bone is palpable. (+) maceration along borders.Darker skin tone with induration periwound. No elevation in skin temp noted.Small amt non-odorous seropurulent exudate noted.(L)4.5cm x (W) 6.3cmx (D)2.8cm, Undermining 12-12 by 2.6cm @9o'clock. DTPI noted to R hip.Base of indurated and black in colour.(L)2cm x (W)5.7cm. Full thickness sacral pressure injury.25% yellow slough,75%erythematous.Edges adherent and flat. (L)8.7cm x (W)5.2cm x (W)2cm. In addition to sacral wound, periwound noted to have multiple small wounds that are pink and dry. Partial thickness pressure injury posterior upper R thigh.Base of wound moist viable.Edges loose and darker than is normal skin tone.Periwound without induration or elevation in skin temp.Small amt serosanguineous exudate noted (L) 1.5cm x (W)1.3cm. Full thickness pressure injury L trochanter.100% soft brown/black necrosis noted at base of wound. Erythematous borders. Small amt non-odorous brown exudate noted. Periwound indurated with darker skin tone. (L)4.5cm x (W)4.2cm. R heel boggy with non-blanchable erythema .Historical scar noted to R heel. DTPI L heel noted. Maroon discoloration with fluctuance centrally ,indurated borders noted.(L)3.5cm x (W)2cm. Tx.Plan: Cleanse wounds Thoracic spine,R and L of thoracic with Saline. Apply Therahoney.Apply Triad periwound. Cover each wound with Optifoam drsgs. Change every 3 days and prn. Cleanse wound R trochanter with Saline. Apply Therahoney. Apply Triad periwound. Cover with Optifoam drsg every 3 days and prn. Cleanse wound Lumbar spine with Saline. Apply Therahoney.Apply Triad paste periwound. Cover with Optifoam drsg every 3 days and prn. Cleanse wound L trochanter with Saline. Apply Therahoney.Apply Triad Paste periwound. Cover with Optifoam drsg every 3 days and prn. Cleanse wound posterior upper R thigh with saline.Apply Triad Paste .cover with Optifoam drsg .Change every 3 days and prn. Cleanse wounds R and L Iliac with Saline. Apply Therahoney.Apply Therahoney periwound. Cover with Optifoam drsg every 3 days and prn. Cleanse L earlobe with Saline. Apply Therahoney. Cover with Optifoam drsg. Change Daily and prn. Apply Cavilon Skin Barrier to R and L heels .Cover each heel with Optifoam drsgs. Change every 7 days and prn. Apply Cavilon Skin BArrier to Medial aspects of R and L knees. Cover each knee with Optifoam drsg. Change every 7 days and prn. Air Fluidized Mattress. Reposition at least every 2hours or as tolerated. Off-load heels with pillow. (2) Sepsis Assessment & Plan: On Abx CXR Monitor labs (3) Dehydration Assessment & Plan: On IV fluids okay to resume tube feeds (4) Respiratory distress Assessment & Plan: on vent via trach cont w/ breathing treatments (5) Abnormal LFTs Assessment & Plan: alk phos elevated trend for now * Nodular contour of the liver suggestive of cirrhosis. This has been previously described. No focal hepatic mass lesion appreciated sonographically. * Splenomegaly with the spleen measuring 15 .4 cm in length. Trace ascites also noted. Findings may indicate portal hypertension. * Status post cholecystectomy. No biliary ductal dilatation. * Simple appearing left renal cyst. * Left pleural effusion partially visualized. Zev Candelaria December 12, 2018 14:08
[2018-12-12 16:00] VITALS: BP 126/72
--- NOTE | 2018-12-12 16:03 | General Progress Note ---
Assessment/Plan Problem List: (1) Aspiration pneumonia ICD Codes: J69.0 - Pneumonitis due to inhalation of food and vomit SNOMED: 814504253 (2) Hyperlipidemia ICD Codes: E78.5 - Hyperlipidemia, unspecified SNOMED: 06356626 (3) Dementia ICD Codes: F03.90 - Unspecified dementia without behavioral disturbance SNOMED: 18940667 (4) Sepsis ICD Codes: A41.9 - Sepsis, unspecified organism SNOMED: 84832952 (5) Encephalopathy ICD Codes: G93.40 - Encephalopathy, unspecified SNOMED: 83146277 (6) Respiratory distress ICD Codes: R06.03 - Acute respiratory distress SNOMED: 918492873 (7) Probable sepsis ICD Codes: A41.9 - Sepsis, unspecified organism SNOMED: 508700363 (8) Anemia ICD Codes: D64.9 - Anemia, unspecified SNOMED: 795184774 Status: stable, progressing Assessment/Plan: a/ sepsis pna pulm tb cva sz do anemia p/ iv abx tb meds follow up cultures ID eval appreciated tranfuse as needed check stool ob vent support resp rx monitor lytes. replace as needed d.w poc x 5 mins Subjective ROS Limited/Unobtainable: Yes Constitutional: Reports: malaise, weakness HEENT: Reports: no symptoms Cardiovascular: Reports: no symptoms Respiratory: Reports: no symptoms Gastrointestinal/Abdominal: Reports: no symptoms Genitourinary: Reports: no symptoms Neurologic/Psychiatric: Reports: no symptoms Endocrine: Reports: no symptoms Hematologic/Lymphatic: Reports: no symptoms Allergies: Coded Allergies: No Known Allergies (Unverified , 01/27/17) All Systems: reviewed and negative except above Subjective no events. stable on the vent. on iv abx. no szs. cultures neg so far. no bleeding US results reviewed with family Objective Last 24 Hour Vital Signs Date Time Temp Pulse Resp B/P (MAP) Pulse Ox O2 Delivery O2 Flow Rate FiO2 12/12/18 16:00 97.7 72 27 126/72 (90) 100 12/12/18 15:05 70 24 30 40 12/12/18 13:05 71 25 30 40 12/12/18 12:00 97.7 74 26 115/60 (78) 100 12/12/18 12:00 40 12/12/18 12:00 Mechanical Ventilator 12/12/18 11:46 72 12/12/18 10:41 74 28 30 40 12/12/18 09:17 97.7 12/12/18 09:10 81 28 30 40 12/12/18 08:49 87 125/59 12/12/18 08:49 87 125/59 12/12/18 08:00 Mechanical Ventilator 12/12/18 08:00 40 12/12/18 08:00 99.5 87 29 125/59 (81) 100 12/12/18 07:26 89 12/12/18 07:07 87 26 30 40 12/12/18 05:25 89 22 30 40 12/12/18 04:00 40 12/12/18 04:00 98.1 87 28 135/73 (93) 100 12/12/18 04:00 Mechanical Ventilator 12/12/18 03:33 83 12/12/18 03:30 84 24 30 40 12/12/18 01:15 83 24 30 40 12/12/18 00:00 Mechanical Ventilator 12/12/18 00:00 99.1 78 24 132/64 (86) 100 12/11/18 23:31 76 12/11/18 23:00 82 26 30 40 12/11/18 21:13 72 26 30 40 12/11/18 20:53 84 130/65 12/11/18 20:00 97.9 84 20 130/65 (86) 100 12/11/18 20:00 79 12/11/18 20:00 40 12/11/18 20:00 Mechanical Ventilator 12/11/18 19:11 78 30 30 40 12/11/18 17:06 80 27 40 Intake and Output 12/11/18 12/12/18 18:59 06:59 Intake Total 1650 ml 1636.31661 ml Output Total 650 ml Balance 1000 ml 1636.89584 ml Intake Free Water 200 ml 300 ml IV Total 550 ml 776.02205 ml Tube Feeding 840 ml 560 ml Other 60 ml Output Urine Total 650 ml # Bowel Movements 2 1 Laboratory Tests 12/12/18 04:05: White Blood Count 10.8, Red Blood Count 3.52L, Hemoglobin 8.9L, Hematocrit 28.5L , Mean Corpuscular Volume 81, Mean Corpuscular Hemoglobin 25.3L, Mean Corpuscular Hemoglobin Concent 31.3L, Red Cell Distribution Width 17.2H, Platelet Count 409, Mean Platelet Volume 5.1L, Neutrophils (%) (Auto) 77.1H, Lymphocytes (%) (Auto) 11.3L, Monocytes (%) (Auto) 6.7, Eosinophils (%) (Auto) 4.5H, Basophils (%) (Auto) 0.4, Sodium Level 141, Potassium Level 4.0, Chloride Level 108H, Carbon Dioxide Level 27, Anion Gap 6, Blood Urea Nitrogen 29H, Creatinine 0.6, Estimat Glomerular Filtration Rate , Glucose Level 103, Calcium Level 8.1L, Total Bilirubin 0.8, Aspartate Amino Transf (AST/SGOT) 32, Alanine Aminotransferase (ALT/SGPT) 8L, Alkaline Phosphatase 421H, Total Protein 6.9, Albumin 0.9L, Globulin 6.0, Albumin/Globulin Ratio 0.1L Height (Feet): 5 Height (Inches): 7.00 Weight (Pounds): 118 Objective General Appearance: WD/WN, lethargic, confused, cachetic, thin Neck: supple Cardiovascular: normal peripheral pulses, normal rate, regular rhythm Respiratory/Chest: chest wall non-tender, lungs clear, normal breath sounds Abdomen: normal bowel sounds, non tender, soft, no organomegaly Edema: no edema noted Arm (L), no edema noted Arm (R), no edema noted Leg (L), no edema noted Leg (R), no edema noted Pedal (L), no edema noted Pedal (R), no edema noted Generalized Neurologic: unresponsive, aphasia Jarrod Vásquez MD December 12, 2018 16:03
--- NOTE | 2018-12-12 19:05 | NUR ---
NURSE NOTES: Pt report Received from Merle REEVES. Pt appears to be resting comfortably in bed, no distress noted. Pt is obtunded, but able to respond with Noxious stimuli. 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 Pt is on a tract to vent with reported settings of Protex 7, AC 12, TV 500, FiO2 of 40% with a PEEP of 5. Pt is saturating at 100% with no acute respiratory distress noted. Pt is on a G tube diet of Vital AF running at 70cc/ HR. no abnormalities to site, G tube is able to flush with no complications. Pt has a R hand 22G and L Hand 25G, both patent and able to flush with no complications. Pt has a mcintyre cath inserted, patent and able to drain to gravity. All safety precautions are in place, such as bed is locked, bed is in lowest position, bed rails are up times 3, call light is within easy reach, bed alarm is active. Will continue plan of care.
--- NOTE | 2018-12-12 19:24 | NUR ---
HAND-OFF: Report given to LALA Caballero. Patient afebrile, in stable condition.
[2018-12-12 20:00] VITALS: BP_SYST 130; BP_SYST 150; BP_DIAS 70; BP_DIAS 75
[2018-12-12] MEDS: Doxazosin 1mg Tab GT SCH (20:14)
[2018-12-12] MEDS: Colistin for inhalation INH SCH (23:02)
[2018-12-13] VITALS: BP 150/75
[2018-12-13 04:00] VITALS: BP 130/71
--- NOTE | 2018-12-13 05:19 | NUR ---
HAND-OFF: Report given to Kayy REEVES.
--- NOTE | 2018-12-13 07:48 | NUR ---
HAND-OFF: Report given to LALA Saldivar.
[2018-12-13 08:00] VITALS: BP 145/65
--- NOTE | 2018-12-13 08:00 | NUR ---
NURSE NOTES: received pt in the bed, obtunded, vent dependent, vital signs stable, no SOB, no co pain, tolerate GT feeding well, skin warm and dry to touch, multiple wound, dressing dry and intact, bed in low position, HOB elevated.
--- NOTE | 2018-12-13 08:28 | General Progress Note ---
Assessment/Plan Problem List: (1) Aspiration pneumonia ICD Codes: J69.0 - Pneumonitis due to inhalation of food and vomit SNOMED: 707164419 (2) Hyperlipidemia ICD Codes: E78.5 - Hyperlipidemia, unspecified SNOMED: 23600368 (3) Dementia ICD Codes: F03.90 - Unspecified dementia without behavioral disturbance SNOMED: 70428037 (4) Sepsis ICD Codes: A41.9 - Sepsis, unspecified organism SNOMED: 19776688 (5) Encephalopathy ICD Codes: G93.40 - Encephalopathy, unspecified SNOMED: 47470528 (6) Respiratory distress ICD Codes: R06.03 - Acute respiratory distress SNOMED: 551314341 (7) Probable sepsis ICD Codes: A41.9 - Sepsis, unspecified organism SNOMED: 069997752 (8) Anemia ICD Codes: D64.9 - Anemia, unspecified SNOMED: 482207125 Status: stable, progressing Assessment/Plan: a/ sepsis pna pulm tb cva sz do anemia ?Cirrhosis p/ iv abx tb meds follow up cultures ID eval appreciated tranfuse as needed check stool ob vent support resp rx monitor lytes. replace as needed d.w poc x 5 mins Subjective ROS Limited/Unobtainable: Yes Constitutional: Reports: malaise, weakness HEENT: Reports: no symptoms Cardiovascular: Reports: no symptoms Respiratory: Reports: shortness of breath Gastrointestinal/Abdominal: Reports: difficulty swallowing Genitourinary: Reports: no symptoms Neurologic/Psychiatric: Reports: pre-existing deficit, seizure Endocrine: Reports: no symptoms Hematologic/Lymphatic: Reports: no symptoms Allergies: Coded Allergies: No Known Allergies (Unverified , 01/27/17) All Systems: reviewed and negative except above Subjective no events. stable on the vent. on iv abx. no szs. cultures neg so far. no bleeding tolerating feeds Objective Last 24 Hour Vital Signs Date Time Temp Pulse Resp B/P (MAP) Pulse Ox O2 Delivery O2 Flow Rate FiO2 12/13/18 07:00 80 25 30 30 12/13/18 05:30 89 23 30 30 12/13/18 04:00 Mechanical Ventilator 12/13/18 04:00 98.2 73 20 130/71 (90) 100 12/13/18 04:00 69 12/13/18 04:00 40 12/13/18 03:27 69 23 30 30 12/13/18 01:12 68 24 30 30 12/13/18 00:00 40 12/13/18 00:00 98.0 75 23 150/75 (100) 100 12/13/18 00:00 72 12/13/18 00:00 Mechanical Ventilator 12/12/18 23:04 69 23 30 30 12/12/18 23:02 69 23 100 Mechanical Ventilator 30 12/12/18 21:12 68 23 30 30 12/12/18 21:00 Mechanical Ventilator 12/12/18 20:15 71 130/70 12/12/18 20:00 40 12/12/18 20:00 70 12/12/18 20:00 98.2 71 23 130/70 (90) 100 12/12/18 19:11 71 26 30 30 12/12/18 17:22 72 26 30 40 12/12/18 16:00 40 12/12/18 16:00 Mechanical Ventilator 12/12/18 16:00 97.7 72 27 126/72 (90) 100 12/12/18 15:20 70 12/12/18 15:05 70 24 30 40 12/12/18 13:05 71 25 30 40 12/12/18 12:00 97.7 74 26 115/60 (78) 100 12/12/18 12:00 40 12/12/18 12:00 Mechanical Ventilator 12/12/18 11:46 72 12/12/18 10:41 74 28 30 40 12/12/18 09:17 97.7 12/12/18 09:10 81 28 30 40 12/12/18 08:49 87 125/59 12/12/18 08:49 87 125/59 Intake and Output 12/12/18 12/13/18 19:00 07:00 Intake Total 1493.333 ml 1010 ml Output Total 600 ml 700 ml Balance 893.333 ml 310 ml Intake Free Water 450 ml 450 ml IV Total 203.333 ml Tube Feeding 840 ml 560 ml Output Urine Total 600 ml 700 ml # Bowel Movements 2 4 Height (Feet): 5 Height (Inches): 7.00 Weight (Pounds): 118 Objective General Appearance: WD/WN, lethargic, confused, cachetic, thin Neck: supple Cardiovascular: normal peripheral pulses, normal rate, regular rhythm Respiratory/Chest: chest wall non-tender, lungs clear, normal breath sounds Abdomen: normal bowel sounds, non tender, soft, no organomegaly Edema: no edema noted Arm (L), no edema noted Arm (R), no edema noted Leg (L), no edema noted Leg (R), no edema noted Pedal (L), no edema noted Pedal (R), no edema noted Generalized Neurologic: unresponsive, aphasia Jarrod Vsáquez MD December 13, 2018 08:28
[2018-12-13] MEDS: Acetaminophen 650mg/20.3ml GT SCH (08:54)
[2018-12-13] MEDS: Docusate 100mg/10ml Liq GT SCH (08:54)
[2018-12-13] MEDS: Ascorbic Acid 500mg tab GT SCH (08:55)
[2018-12-13] MEDS: Aspirin Baby 81mg GT SCH (08:55)
[2018-12-13] MEDS: Zinc Sulfate 220mg cap GT SCH (08:55)
[2018-12-13] MEDS: Isoniazid 300mg tab GT SCH (08:55)
[2018-12-13] MEDS: Multivitamin w/Minerals tab ORAL SCH (08:55)
[2018-12-13] MEDS: levETIRAcetam 500mg/5ml Liquid GT SCH ×2 (08:55→20:07)
[2018-12-13] MEDS: Levofloxacin 500mg tab ORAL SCH (08:56)
[2018-12-13] MEDS: Pyridoxine 50mg tab GT SCH (08:56)
[2018-12-13] MEDS: Metoprolol Tartrate 50mg tab GT SCH ×2 (08:56→20:08)
[2018-12-13] MEDS: Heparin 5000 units/ml inj SUBQ SCH ×2 (08:57→20:09)
[2018-12-13] MEDS: Colistin for inhalation INH SCH (09:20)
--- NOTE | 2018-12-13 09:35 | Pulmonology Progress Note ---
Assessment/Plan Assessment/Plan Pulmonary Progress Note Assessment/Plan ASSESSMENT: history of stroke, respiratory failure, hypernatremia, acute on chronic renal failure, chronic encephalopathy, seizure disorder, pulmonary tuberculosis, and anemia possible sepsis, pneumonia PLAN overnight events noted IV antibiotics reviewed respiratory care Ventilatory support full no wean SNF meds noted supportive care hypotonic fluids suction and monitor no wean planned monitor imaging and labs support as needed oxygen therapy noted prognosis guarded; consider DNR impression, plan, and exam edited and reviewed in detail care discussed with RN Subjective ROS Limited/Unobtainable: Yes Allergies: Coded Allergies: No Known Allergies (Unverified , 01/27/17) Subjective care noted on vent bed bound reviewed care Objective Vital Signs Noted Objective on vent chronically ill trach clear breath sounds bilaterally without rhonchi or wheeze [id number] without MRG NABS nontender no HSM; Gt no CCE; contractures nonfocal Microbiology Date/Time Source Procedure Growth Status 12/09/18 10:00 Sputum Gram Stain - Final Resulted 12/09/18 10:00 Sputum Culture - Preliminary Pseudomonas Aeruginosa - Mdr Stenotrophomonas Maltophilia Resulted Laboratory Tests Noted 12/12/18 04:05: White Blood Count 10.8, Red Blood Count 3.52L, Hemoglobin 8.9L, Hematocrit 28.5L , Mean Corpuscular Volume 81, Mean Corpuscular Hemoglobin 25.3L, Mean Corpuscular Hemoglobin Concent 31.3L, Red Cell Distribution Width 17.2H, Platelet Count 409, Mean Platelet Volume 5.1L, Neutrophils (%) (Auto) 77.1H, Lymphocytes (%) (Auto) 11.3L, Monocytes (%) (Auto) 6.7, Eosinophils (%) (Auto) 4.5H, Basophils (%) (Auto) 0.4, Sodium Level 141, Potassium Level 4.0, Chloride Level 108H, Carbon Dioxide Level 27, Anion Gap 6, Blood Urea Nitrogen 29H, Creatinine 0.6, Estimat Glomerular Filtration Rate , Glucose Level 103, Calcium Level 8.1L, Total Bilirubin 0.8, Aspartate Amino Transf (AST/SGOT) 32, Alanine Aminotransferase (ALT/SGPT) 8L, Alkaline Phosphatase 421H, Total Protein 6.9, Albumin 0.9L, Globulin 6.0, Albumin/Globulin Ratio 0.1L Current Medications Medications (Trade) Dose Ordered Sig/Iram Route PRN Reason Start Time Stop Time Status Last Admin Dose Admin Acetaminophen (Tylenol) 650 mg DAILY GT 12/10/18 09:00 01/08/19 08:59 12/10/18 09:46 Acetaminophen (Tylenol) 650 mg Q4H PRN GT Mild Pain/Temp > 100.5 12/09/18 11:00 01/07/19 20:44 Amlodipine Besylate (Norvasc) 10 mg DAILY GT 12/09/18 09:00 01/08/19 08:59 12/11/18 08:42 Artificial Tears (Akwa-Tears) 2 drop Q4H PRN BOTH EYES DRY EYES 12/08/18 20:45 01/07/19 20:44 Ascorbic Acid (Vitamin C) 500 mg DAILY GT 12/09/18 09:00 01/08/19 08:59 12/11/18 08:38 Aspirin (ASA) 81 mg DAILY GT 12/09/18 09:00 01/08/19 08:59 12/11/18 08:38 Atorvastatin Calcium (Lipitor) 10 mg BEDTIME GT 12/08/18 21:00 01/07/19 20:59 12/11/18 20:53 Bisacodyl (Dulcolax) 10 mg DAILYPRN PRN RECTAL constipation 12/08/18 20:45 01/07/19 20:44 Dextrose 1,000 ml @ 50 mls/hr Q20H IV 12/09/18 21:00 01/08/19 20:59 12/11/18 16:25 Docusate Sodium (Colace) 100 mg DAILY GT 12/10/18 09:00 01/08/19 08:59 12/11/18 08:41 Doxazosin Mesylate (Cardura) 1 mg QHS GT 12/08/18 21:00 01/07/19 20:59 12/11/18 20:53 Heparin Sodium (Porcine) (Heparin 5000 units/ml) 5,000 units EVERY 12 HOURS SUBQ 12/09/18 09:00 01/08/19 08:59 12/11/18 20:55 Isoniazid (Inh) 300 mg DAILY GT 12/09/18 09:00 01/08/19 08:59 12/11/18 08:39 Lansoprazole (Prevacid) 30 mg Q12HR GT 12/09/18 21:00 01/07/19 20:59 12/11/18 20:53 Levetiracetam (Keppra) 750 mg Q12HR GT 12/08/18 21:00 01/07/19 20:59 12/11/18 20:54 Magnesium Hydroxide (Mom) 30 ml DAILYPRN PRN GT constipation 12/08/18 20:45 01/07/19 20:44 Metoprolol Tartrate (Lopressor) 50 mg EVERY 12 HOURS GT 12/08/18 21:00 01/07/19 20:59 12/11/18 20:53 Multivitamins Therapeutic (Therapeutic Multivitamin) 1 ea DAILY ORAL 12/09/18 09:00 01/08/19 08:59 12/11/18 08:38 Piperacillin Sod/ Tazobactam Sod 3.375 gm/Sodium Chloride 110 ml @ 27.5 mls/hr Q8H IVPB 12/09/18 16:00 12/16/18 15:59 12/12/18 08:15 Pyridoxine HCl (Vitamin B6) 50 mg DAILY GT 12/10/18 09:00 01/08/19 10:29 12/11/18 08:38 Rifampin (Rifadin) 600 mg DAILY GT 12/09/18 10:30 01/08/19 10:29 12/11/18 08:41 Sodium Phosphate (Fleet's Sodium Phosl Enema) 133 ml QOD PRN RECTAL constipation 12/10/18 09:15 01/07/19 20:44 Zinc Sulfate (Zinc Sulfate) 220 mg DAILY GT 12/09/18 09:00 01/08/19 08:59 12/11/18 08:40 Subjective ROS Limited/Unobtainable: No Allergies: Coded Allergies: No Known Allergies (Unverified , 01/27/17) Objective Last 24 Hour Vital Signs Date Time Temp Pulse Resp B/P (MAP) Pulse Ox O2 Delivery O2 Flow Rate FiO2 12/13/18 09:19 73 22 100 Mechanical Ventilator 30 12/13/18 09:18 73 22 30 30 12/13/18 08:56 82 145/65 12/13/18 08:56 82 145/65 12/13/18 08:00 40 12/13/18 08:00 99.1 82 20 145/65 (91) 100 12/13/18 08:00 Mechanical Ventilator 12/13/18 07:48 81 12/13/18 07:00 80 25 30 30 12/13/18 05:30 89 23 30 30 12/13/18 04:00 Mechanical Ventilator 12/13/18 04:00 98.2 73 20 130/71 (90) 100 12/13/18 04:00 69 12/13/18 04:00 40 12/13/18 03:27 69 23 30 30 12/13/18 01:12 68 24 30 30 12/13/18 00:00 40 12/13/18 00:00 98.0 75 23 150/75 (100) 100 12/13/18 00:00 72 12/13/18 00:00 Mechanical Ventilator 12/12/18 23:04 69 23 30 30 12/12/18 23:02 69 23 100 Mechanical Ventilator 30 12/12/18 21:12 68 23 30 30 12/12/18 21:00 Mechanical Ventilator 12/12/18 20:15 71 130/70 12/12/18 20:00 40 12/12/18 20:00 70 12/12/18 20:00 98.2 71 23 130/70 (90) 100 12/12/18 19:11 71 26 30 30 12/12/18 17:22 72 26 30 40 12/12/18 16:00 40 12/12/18 16:00 Mechanical Ventilator 12/12/18 16:00 97.7 72 27 126/72 (90) 100 12/12/18 15:20 70 12/12/18 15:05 70 24 30 40 12/12/18 13:05 71 25 30 40 12/12/18 12:00 97.7 74 26 115/60 (78) 100 12/12/18 12:00 40 12/12/18 12:00 Mechanical Ventilator 12/12/18 11:46 72 12/12/18 10:41 74 28 30 40 Intake and Output 12/12/18 12/13/18 19:00 07:00 Intake Total 1493.333 ml 1010 ml Output Total 600 ml 700 ml Balance 893.333 ml 310 ml Intake Free Water 450 ml 450 ml IV Total 203.333 ml Tube Feeding 840 ml 560 ml Output Urine Total 600 ml 700 ml # Bowel Movements 2 4 Current Medications Medications (Trade) Dose Ordered Sig/Iram Route PRN Reason Start Time Stop Time Status Last Admin Dose Admin Acetaminophen (Tylenol) 650 mg DAILY GT 12/10/18 09:00 01/08/19 08:59 12/13/18 08:54 Acetaminophen (Tylenol) 650 mg Q4H PRN GT Mild Pain/Temp > 100.5 12/09/18 11:00 01/07/19 20:44 Amlodipine Besylate (Norvasc) 10 mg DAILY GT 12/09/18 09:00 01/08/19 08:59 12/13/18 08:56 Artificial Tears (Akwa-Tears) 2 drop Q4H PRN BOTH EYES DRY EYES 12/08/18 20:45 01/07/19 20:44 Ascorbic Acid (Vitamin C) 500 mg DAILY GT 12/09/18 09:00 01/08/19 08:59 12/13/18 08:55 Aspirin (ASA) 81 mg DAILY GT 12/09/18 09:00 01/08/19 08:59 12/13/18 08:55 Atorvastatin Calcium (Lipitor) 10 mg BEDTIME GT 12/08/18 21:00 01/07/19 20:59 12/12/18 20:15 Bisacodyl (Dulcolax) 10 mg DAILYPRN PRN RECTAL constipation 12/08/18 20:45 01/07/19 20:44 Colistimethate Sodium (Colistin *inhalation use only*) 75 mg Q12HR@10,22 INH 12/12/18 11:00 12/19/18 10:59 12/13/18 09:20 Docusate Sodium (Colace) 100 mg DAILY GT 12/10/18 09:00 01/08/19 08:59 12/13/18 08:54 Doxazosin Mesylate (Cardura) 1 mg QHS GT 12/08/18 21:00 01/07/19 20:59 12/12/18 20:14 Heparin Sodium (Porcine) (Heparin 5000 units/ml) 5,000 units EVERY 12 HOURS SUBQ 12/09/18 09:00 01/08/19 08:59 12/13/18 08:57 Isoniazid (Inh) 300 mg DAILY GT 12/09/18 09:00 01/08/19 08:59 12/13/18 08:55 Lansoprazole (Prevacid) 30 mg Q12HR GT 12/09/18 21:00 01/07/19 20:59 12/13/18 08:56 Levetiracetam (Keppra) 750 mg Q12HR GT 12/08/18 21:00 01/07/19 20:59 12/13/18 08:55 Levofloxacin (Levaquin) 500 mg DAILY ORAL 12/12/18 10:45 12/19/18 10:44 12/13/18 08:56 Magnesium Hydroxide (Mom) 30 ml DAILYPRN PRN GT constipation 12/08/18 20:45 01/07/19 20:44 Metoprolol Tartrate (Lopressor) 50 mg EVERY 12 HOURS GT 12/08/18 21:00 01/07/19 20:59 12/13/18 08:56 Multivitamins Therapeutic (Therapeutic Multivitamin) 1 ea DAILY ORAL 12/09/18 09:00 01/08/19 08:59 12/13/18 08:55 Pyridoxine HCl (Vitamin B6) 50 mg DAILY GT 12/10/18 09:00 01/08/19 10:29 12/13/18 08:56 Rifampin (Rifadin) 600 mg DAILY GT 12/09/18 10:30 01/08/19 10:29 12/13/18 08:56 Sodium Phosphate (Fleet's Sodium Phosl Enema) 133 ml QOD PRN RECTAL constipation 12/10/18 09:15 01/07/19 20:44 Zinc Sulfate (Zinc Sulfate) 220 mg DAILY GT 12/09/18 09:00 01/08/19 08:59 12/13/18 08:55 Jones Rasmussen MD December 13, 2018 09:35
--- NOTE | 2018-12-13 10:15 | Infectious Diseases Prog Note ---
"Assessment/Plan Assessment/Plan antibiotics : levoquin, inhaled colistin, isoniazid, rifampin, pyridoxine A 1. pseudomonas | stenotrophomonas pneumonia 2. pulmonary tuberculosis 3. respiratory failure 4. 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 d/c inhaled colistin 2. continue levoquin 3. continue isoniazid, rifampin, pyridoxine 4. start polymyxin iv 5. will follow up cultures Subjective ROS Limited/Unobtainable: Yes Allergies: Coded Allergies: No Known Allergies (Unverified , 01/27/17) Objective Vital Signs Last 24 Hour Vital Signs Date Time Temp Pulse Resp B/P (MAP) Pulse Ox O2 Delivery O2 Flow Rate FiO2 12/13/18 09:30 77 22 100 Mechanical Ventilator 30 12/13/18 09:24 99.1 12/13/18 09:19 73 22 100 Mechanical Ventilator 30 12/13/18 09:18 73 22 30 30 12/13/18 08:56 82 145/65 12/13/18 08:56 82 145/65 12/13/18 08:00 40 12/13/18 08:00 99.1 82 20 145/65 (91) 100 12/13/18 08:00 Mechanical Ventilator 12/13/18 07:48 81 12/13/18 07:00 80 25 30 30 12/13/18 05:30 89 23 30 30 12/13/18 04:00 Mechanical Ventilator 12/13/18 04:00 98.2 73 20 130/71 (90) 100 12/13/18 04:00 69 12/13/18 04:00 40 12/13/18 03:27 69 23 30 30 12/13/18 01:12 68 24 30 30 12/13/18 00:00 40 12/13/18 00:00 98.0 75 23 150/75 (100) 100 12/13/18 00:00 72 12/13/18 00:00 Mechanical Ventilator 12/12/18 23:04 69 23 30 30 12/12/18 23:02 69 23 100 Mechanical Ventilator 30 12/12/18 21:12 68 23 30 30 12/12/18 21:00 Mechanical Ventilator 12/12/18 20:15 71 130/70 12/12/18 20:00 40 12/12/18 20:00 70 12/12/18 20:00 98.2 71 23 130/70 (90) 100 12/12/18 19:11 71 26 30 30 12/12/18 17:22 72 26 30 40 12/12/18 16:00 40 12/12/18 16:00 Mechanical Ventilator 12/12/18 16:00 97.7 72 27 126/72 (90) 100 12/12/18 15:20 70 12/12/18 15:05 70 24 30 40 12/12/18 13:05 71 25 30 40 12/12/18 12:00 97.7 74 26 115/60 (78) 100 12/12/18 12:00 40 12/12/18 12:00 Mechanical Ventilator 12/12/18 11:46 72 12/12/18 10:41 74 28 30 40 Height (Feet): 5 Height (Inches): 7.00 Weight (Pounds): 118 HEENT: status post trach Respiratory/Chest: lungs clear Cardiovascular: normal rate, regular rhythm, no gallop/murmur Abdomen: soft, non tender, other - GT Extremities: no edema Current Medications Medications (Trade) Dose Ordered Sig/Iram Route PRN Reason Start Time Stop Time Status Last Admin Dose Admin Acetaminophen (Tylenol) 650 mg DAILY GT 12/10/18 09:00 01/08/19 08:59 12/13/18 08:54 Acetaminophen (Tylenol) 650 mg Q4H PRN GT Mild Pain/Temp > 100.5 12/09/18 11:00 01/07/19 20:44 Amlodipine Besylate (Norvasc) 10 mg DAILY GT 12/09/18 09:00 01/08/19 08:59 12/13/18 08:56 Artificial Tears (Akwa-Tears) 2 drop Q4H PRN BOTH EYES DRY EYES 12/08/18 20:45 01/07/19 20:44 Ascorbic Acid (Vitamin C) 500 mg DAILY GT 12/09/18 09:00 01/08/19 08:59 12/13/18 08:55 Aspirin (ASA) 81 mg DAILY GT 12/09/18 09:00 01/08/19 08:59 12/13/18 08:55 Atorvastatin Calcium (Lipitor) 10 mg BEDTIME GT 12/08/18 21:00 01/07/19 20:59 12/12/18 20:15 Bisacodyl (Dulcolax) 10 mg DAILYPRN PRN RECTAL constipation 12/08/18 20:45 01/07/19 20:44 Colistimethate Sodium (Colistin *inhalation use only*) 75 mg Q12HR@10,22 INH 12/12/18 11:00 12/19/18 10:59 12/13/18 09:20 Docusate Sodium (Colace) 100 mg DAILY GT 12/10/18 09:00 01/08/19 08:59 12/13/18 08:54 Doxazosin Mesylate (Cardura) 1 mg QHS GT 12/08/18 21:00 01/07/19 20:59 12/12/18 20:14 Heparin Sodium (Porcine) (Heparin 5000 units/ml) 5,000 units EVERY 12 HOURS SUBQ 12/09/18 09:00 01/08/19 08:59 12/13/18 08:57 Isoniazid (Inh) 300 mg DAILY GT 12/09/18 09:00 01/08/19 08:59 12/13/18 08:55 Lansoprazole (Prevacid) 30 mg Q12HR GT 12/09/18 21:00 01/07/19 20:59 12/13/18 08:56 Levetiracetam (Keppra) 750 mg Q12HR GT 12/08/18 21:00 01/07/19 20:59 12/13/18 08:55 Levofloxacin (Levaquin) 500 mg DAILY ORAL 12/12/18 10:45 12/19/18 10:44 12/13/18 08:56 Magnesium Hydroxide (Mom) 30 ml DAILYPRN PRN GT constipation 12/08/18 20:45 01/07/19 20:44 Metoprolol Tartrate (Lopressor) 50 mg EVERY 12 HOURS GT 12/08/18 21:00 01/07/19 20:59 12/13/18 08:56 Multivitamins Therapeutic (Therapeutic Multivitamin) 1 ea DAILY ORAL 12/09/18 09:00 01/08/19 08:59 12/13/18 08:55 Pyridoxine HCl (Vitamin B6) 50 mg DAILY GT 12/10/18 09:00 01/08/19 10:29 12/13/18 08:56 Rifampin (Rifadin) 600 mg DAILY GT 12/09/18 10:30 01/08/19 10:29 12/13/18 08:56 Sodium Phosphate (Fleet's Sodium Phosl Enema) 133 ml QOD PRN RECTAL constipation 12/10/18 09:15 01/07/19 20:44 Zinc Sulfate (Zinc Sulfate) 220 mg DAILY GT 12/09/18 09:00 01/08/19 08:59 12/13/18 08:55 Sergio Urban MD December 13, 2018 10:15"
[2018-12-13] MEDS: Polymyxin B Sulfate 250,000 UNITS in D5W 275 ML IV SCH ×2 (11:59→23:14)
[2018-12-13 12:00] VITALS: BP 122/66
--- NOTE | 2018-12-13 14:40 | NUR ---
CASE MANAGEMENT: REVIEW SI: ANEMIA . SEPSIS . TRACH T 97.3 HR 64 RR 25 BP 122/66 SAT 100% MECH VENT FIO2 40 H/H 8.9/28.5 BUN 29 ALT 8 IS: POLYMYXIN IV Q12HR LEVAQUIN GT QD PYRIDOXINE GT QD RIFAMPIN GT QD PRBC PRN STEP DOWN UNIT STATUS DCP: PATIENT IS FROM [facility]
--- NOTE | 2018-12-13 15:38 | Surgery Progress Note ---
Surgery Progress Note Subjective Additional Comments no acute events. stable. Objective Last 24 Hour Vital Signs Date Time Temp Pulse Resp B/P (MAP) Pulse Ox O2 Delivery O2 Flow Rate FiO2 12/13/18 15:12 70 20 30 30 12/13/18 12:58 67 17 30 30 12/13/18 12:00 Mechanical Ventilator 12/13/18 12:00 97.3 64 20 122/66 (84) 100 12/13/18 12:00 40 12/13/18 11:55 67 12/13/18 10:50 69 25 30 30 12/13/18 09:30 77 22 100 Mechanical Ventilator 30 12/13/18 09:24 99.1 12/13/18 09:19 73 22 100 Mechanical Ventilator 30 12/13/18 09:18 73 22 30 30 12/13/18 08:56 82 145/65 12/13/18 08:56 82 145/65 12/13/18 08:00 40 12/13/18 08:00 99.1 82 20 145/65 (91) 100 12/13/18 08:00 Mechanical Ventilator 12/13/18 07:48 81 12/13/18 07:00 80 25 30 30 12/13/18 05:30 89 23 30 30 12/13/18 04:00 Mechanical Ventilator 12/13/18 04:00 98.2 73 20 130/71 (90) 100 12/13/18 04:00 69 12/13/18 04:00 40 12/13/18 03:27 69 23 30 30 12/13/18 01:12 68 24 30 30 12/13/18 00:00 40 12/13/18 00:00 98.0 75 23 150/75 (100) 100 12/13/18 00:00 72 12/13/18 00:00 Mechanical Ventilator 12/12/18 23:04 69 23 30 30 12/12/18 23:02 69 23 100 Mechanical Ventilator 30 12/12/18 21:12 68 23 30 30 12/12/18 21:00 Mechanical Ventilator 12/12/18 20:15 71 130/70 12/12/18 20:00 40 12/12/18 20:00 70 12/12/18 20:00 98.2 71 23 130/70 (90) 100 12/12/18 19:11 71 26 30 30 12/12/18 17:22 72 26 30 40 12/12/18 16:00 40 12/12/18 16:00 Mechanical Ventilator 12/12/18 16:00 97.7 72 27 126/72 (90) 100 I&O Intake and Output 12/12/18 12/13/18 19:00 07:00 Intake Total 1493.333 ml 1010 ml Output Total 600 ml 700 ml Balance 893.333 ml 310 ml Intake Free Water 450 ml 450 ml IV Total 203.333 ml Tube Feeding 840 ml 560 ml Output Urine Total 600 ml 700 ml # Bowel Movements 2 4 Dressing: saturated Wound: other Drains: other Cardiovascular: RSR Respiratory: clear Abdomen: soft, present bowel sounds, non-distended Extremities: no tenderness, no cyanosis Plan Problems: (1) Decubitus ulcer Assessment & Plan: Pt presented on admission with multiple full thickness pressure injuries. Skin assessed under trach collar and no evidence of skin breakdown noted. Unstageable pressure injury with 100% yellow slough noted to L earlobe. Periwound skin tone is darker without erythema . No odor or exudate noted.( L00.3cm x (W)0.4cm. Hyperpigmentation from previous wound noted to R scapula noted and stable/ healing. 2x Full thickness pressure injuries noted to thoracic spine.(#1Proximally)Full thickness pressure injury with 95% yellow slough at base of wound with erythematous borders.Periwound skin tone is darker without induration or fluctuance.No odor or exudate noted(L)2.3cm x (W)1.7cm. (#2 inferior)Full thickness pressure injury with 60% loose fibrinous slough,10% necrosis,30% red granulation. Edges adherent to base of wound and are flat. Small amt seropurulent ,non-odorous exudate noted. Additionally,scattered partial thickness wounds noted periwound. R of thoracic spine Small full thickness pressure injury with 100% yellow slough at base of wound. Edges adherent and flat. No odor or exudate noted. (L) 0.6cm x (W)0.5cm. Full thickness pressure injury to lumbar spine. Base of wound with scattered slough ,10% necrosis. (+) maceration along borders. Darker skin tone without elevation in skin temp ,induration or fluctuance periwound.(L)4.5cm x (W)5cm. Full thickness pressure injury noted to R Iliac.Base of wound has 75% yellow slough,25% beefy red,(+) maceration along borders. Small amt non-odorous serous exudate noted.(L)4.8cm x (W)4cm.At base of R iliac pressure injury an area of darker skin tone that is indurated noted (L) 4.5cm x (W)6cm. Full thickness pressure injury L Iliac. 80% yellow/velazquez slough,20% erythematous. edges adherent and flat. Periwound withot erythema or induration. (L)3.3cm x (W)3.5cm. NO odor or exudate noted. Full thickness pressure injury noted to R trochanter with undermining. 80% yellow/velazquez slough,20% erythematous at base. Bone is palpable. (+) maceration along borders.Darker skin tone with induration periwound. No elevation in skin temp noted.Small amt non-odorous seropurulent exudate noted.(L)4.5cm x (W) 6.3cmx (D)2.8cm, Undermining 12-12 by 2.6cm @9o'clock. DTPI noted to R hip.Base of indurated and black in colour.(L)2cm x (W)5.7cm. Full thickness sacral pressure injury.25% yellow slough,75%erythematous.Edges adherent and flat. (L)8.7cm x (W)5.2cm x (W)2cm. In addition to sacral wound, periwound noted to have multiple small wounds that are pink and dry. Partial thickness pressure injury posterior upper R thigh.Base of wound moist viable.Edges loose and darker than is normal skin tone.Periwound without induration or elevation in skin temp.Small amt serosanguineous exudate noted (L) 1.5cm x (W)1.3cm. Full thickness pressure injury L trochanter.100% soft brown/black necrosis noted at base of wound. Erythematous borders. Small amt non-odorous brown exudate noted. Periwound indurated with darker skin tone. (L)4.5cm x (W)4.2cm. R heel boggy with non-blanchable erythema .Historical scar noted to R heel. DTPI L heel noted. Maroon discoloration with fluctuance centrally ,indurated borders noted.(L)3.5cm x (W)2cm. Tx.Plan: Cleanse wounds Thoracic spine,R and L of thoracic with Saline. Apply Therahoney.Apply Triad periwound. Cover each wound with Optifoam drsgs. Change every 3 days and prn. Cleanse wound R trochanter with Saline. Apply Therahoney. Apply Triad periwound. Cover with Optifoam drsg every 3 days and prn. Cleanse wound Lumbar spine with Saline. Apply Therahoney.Apply Triad paste periwound. Cover with Optifoam drsg every 3 days and prn. Cleanse wound L trochanter with Saline. Apply Therahoney.Apply Triad Paste periwound. Cover with Optifoam drsg every 3 days and prn. Cleanse wound posterior upper R thigh with saline.Apply Triad Paste .cover with Optifoam drsg .Change every 3 days and prn. Cleanse wounds R and L Iliac with Saline. Apply Therahoney.Apply Therahoney periwound. Cover with Optifoam drsg every 3 days and prn. Cleanse L earlobe with Saline. Apply Therahoney. Cover with Optifoam drsg. Change Daily and prn. Apply Cavilon Skin Barrier to R and L heels .Cover each heel with Optifoam drsgs. Change every 7 days and prn. Apply Cavilon Skin BArrier to Medial aspects of R and L knees. Cover each knee with Optifoam drsg. Change every 7 days and prn. Air Fluidized Mattress. Reposition at least every 2hours or as tolerated. Off-load heels with pillow. (2) Sepsis Assessment & Plan: On Abx CXR Monitor labs (3) Dehydration Assessment & Plan: On IV fluids okay to resume tube feeds (4) Respiratory distress Assessment & Plan: on vent via trach cont w/ breathing treatments (5) Abnormal LFTs Assessment & Plan: alk phos elevated trend for now * Nodular contour of the liver suggestive of cirrhosis. This has been previously described. No focal hepatic mass lesion appreciated sonographically. * Splenomegaly with the spleen measuring 15 .4 cm in length. Trace ascites also noted. Findings may indicate portal hypertension. * Status post cholecystectomy. No biliary ductal dilatation. * Simple appearing left renal cyst. * Left pleural effusion partially visualized. Zev Candelaria December 13, 2018 15:38
[2018-12-13 16:00] VITALS: BP 134/68
[2018-12-13] MEDS ORDERED: NS 275ml ONE (18:15)
[2018-12-13] MEDS ORDERED: Tubing IV Secondary IV ONE (18:15)
--- NOTE | 2018-12-13 19:00 | NUR ---
RESPIRATORY NOTE: Pt received on current vent settings AC 12 500 30% +5. Pt has portex 7 tube, cuffed. Suction to moderate to large amount of thick/thin, yellow green secretions, no complications. Vent plugged to red outlet, ambubag at bedside. Pt in no apparent distress at this time. Will continue to monitor.
--- NOTE | 2018-12-13 19:06 | NUR ---
HAND-OFF: Report given to DAWOOD REEVES, no change in condition..
--- NOTE | 2018-12-13 19:15 | NUR ---
NURSE NOTES: Received report from Yariel RN, pt. in bed obtunded, no signs or symptoms of acute cardiac or respiratory distress noted, pt. appears to be tolerating current vent settings at AC 12, TV 500, Fio2 at 40% and Peep 5- no distress noted, bed in lowest position and call light within easy reach, bed alarm on and side rails up x's3- safety brakes engaged, side rails padded for seizure precautions, G tube running Vital AF at 70cc/hr- no residual noted, pt. appears to be clean and dry, pt. has Manzo intact and draining to gravity, Rt. hand 22G intact and patent, Left hand 24G IV intact and patent, safety measures continued, will continue with plan of care.
[2018-12-13 20:00] VITALS: BP 151/75
[2018-12-13] MEDS: Doxazosin 1mg Tab GT SCH (20:08)
[2018-12-14] VITALS: BP 125/66
[2018-12-14 04:00] VITALS: BP 131/78
[2018-12-14 05:55] LABS: ALANINE AMINOTRANSFERASE 15 U/L (12-78); ALBUMIN 0.9 G/DL (3.4-5.0); ALBUMIN/GLOBULIN RATIO 0.2 (1.0-2.7); ALKALINE PHOSPHATASE 388 U/L (46-116); ANION GAP 5 mmol/L (5-15); ASPARTATE AMINO TRANSFERASE 30 U/L (15-37); BILIRUBIN,TOTAL 0.8 MG/DL (0.2-1.0); BLOOD UREA NITROGEN 27 mg/dL (7-18); CALCIUM 8.3 MG/DL (8.5-10.1); CARBON DIOXIDE 30 MMOL/L (21-32); CHLORIDE 108 MMOL/L (98-107); CREATININE 0.5 MG/DL (0.55-1.30); POTASSIUM 4.2 MMOL/L (3.5-5.1); SODIUM 143 MMOL/L (136-145)
--- NOTE | 2018-12-14 06:39 | NUR ---
RESPIRATORY NOTE: Patient received mechanically ventilated on PB 840 with current ordered vent settings. Patient has trach size 7.0 Portex cuffed that is secure with trach tie and guard. There are no signs/symptoms of respiratory distress or shortness of breath noted. Saturations are within normal range. Patient appear comfortable. Vent alarms are functional and audible. There is an ambu bag available at the bedside and the vent is connected to a red outlet. Will continue to monitor.
--- NOTE | 2018-12-14 07:02 | NUR ---
HAND-OFF: Report given to Ramiro RN, pt. remains stable and no signs of distress noted.
--- NOTE | 2018-12-14 07:08 | NUR ---
NURSE NOTES: received patient report from bushra villarreal. patient is on bed asleep. patient is noted to be obtunded. on vent. feeding @ prescribed rate. not in acute distress. will follow plan of care.
[2018-12-14 08:00] VITALS: BP 146/73
[2018-12-14] MEDS: Docusate 100mg/10ml Liq GT SCH (08:27)
[2018-12-14] MEDS: Acetaminophen 650mg/20.3ml GT SCH (08:28)
[2018-12-14] MEDS: levETIRAcetam 500mg/5ml Liquid GT SCH ×2 (08:29→20:51)
[2018-12-14] MEDS: Aspirin Baby 81mg GT SCH (08:30)
[2018-12-14] MEDS: Levofloxacin 500mg tab ORAL SCH (08:30)
[2018-12-14] MEDS: Metoprolol Tartrate 50mg tab GT SCH ×2 (08:30→20:51)
[2018-12-14] MEDS: Multivitamin w/Minerals tab ORAL SCH (08:30)
[2018-12-14] MEDS: Isoniazid 300mg tab GT SCH (08:30)
[2018-12-14] MEDS: Pyridoxine 50mg tab GT SCH (08:30)
[2018-12-14] MEDS: Zinc Sulfate 220mg cap GT SCH (08:30)
[2018-12-14] MEDS: Ascorbic Acid 500mg tab GT SCH (08:31)
[2018-12-14] MEDS: Heparin 5000 units/ml inj SUBQ SCH ×3 (08:38→20:53)
--- NOTE | 2018-12-14 10:06 | Pulmonology Progress Note ---
Assessment/Plan Assessment/Plan Pulmonary Progress Note Assessment/Plan ASSESSMENT: history of stroke, respiratory failure, hypernatremia, acute on chronic renal failure, chronic encephalopathy, seizure disorder, pulmonary tuberculosis, and anemia possible sepsis, pneumonia PLAN overnight events noted IV antibiotics reviewed respiratory care Ventilatory support full no wean SNF meds noted supportive care hypotonic fluids suction and monitor no wean planned monitor imaging and labs support as needed oxygen therapy noted prognosis guarded; consider DNR impression, plan, and exam edited and reviewed in detail care discussed with RN Subjective ROS Limited/Unobtainable: Yes Allergies: Coded Allergies: No Known Allergies (Unverified , 01/27/17) Subjective care noted on vent bed bound reviewed care Objective Vital Signs Noted Objective on vent chronically ill trach clear breath sounds bilaterally without rhonchi or wheeze [id number] without MRG NABS nontender no HSM; Gt no CCE; contractures nonfocal Microbiology Date/Time Source Procedure Growth Status 12/09/18 10:00 Sputum Gram Stain - Final Resulted 12/09/18 10:00 Sputum Culture - Preliminary Pseudomonas Aeruginosa - Mdr Stenotrophomonas Maltophilia Resulted Laboratory Tests Noted 12/12/18 04:05: White Blood Count 10.8, Red Blood Count 3.52L, Hemoglobin 8.9L, Hematocrit 28.5L , Mean Corpuscular Volume 81, Mean Corpuscular Hemoglobin 25.3L, Mean Corpuscular Hemoglobin Concent 31.3L, Red Cell Distribution Width 17.2H, Platelet Count 409, Mean Platelet Volume 5.1L, Neutrophils (%) (Auto) 77.1H, Lymphocytes (%) (Auto) 11.3L, Monocytes (%) (Auto) 6.7, Eosinophils (%) (Auto) 4.5H, Basophils (%) (Auto) 0.4, Sodium Level 141, Potassium Level 4.0, Chloride Level 108H, Carbon Dioxide Level 27, Anion Gap 6, Blood Urea Nitrogen 29H, Creatinine 0.6, Estimat Glomerular Filtration Rate , Glucose Level 103, Calcium Level 8.1L, Total Bilirubin 0.8, Aspartate Amino Transf (AST/SGOT) 32, Alanine Aminotransferase (ALT/SGPT) 8L, Alkaline Phosphatase 421H, Total Protein 6.9, Albumin 0.9L, Globulin 6.0, Albumin/Globulin Ratio 0.1L Current Medications Medications (Trade) Dose Ordered Sig/Iram Route PRN Reason Start Time Stop Time Status Last Admin Dose Admin Acetaminophen (Tylenol) 650 mg DAILY GT 12/10/18 09:00 01/08/19 08:59 12/10/18 09:46 Acetaminophen (Tylenol) 650 mg Q4H PRN GT Mild Pain/Temp > 100.5 12/09/18 11:00 01/07/19 20:44 Amlodipine Besylate (Norvasc) 10 mg DAILY GT 12/09/18 09:00 01/08/19 08:59 12/11/18 08:42 Artificial Tears (Akwa-Tears) 2 drop Q4H PRN BOTH EYES DRY EYES 12/08/18 20:45 01/07/19 20:44 Ascorbic Acid (Vitamin C) 500 mg DAILY GT 12/09/18 09:00 01/08/19 08:59 12/11/18 08:38 Aspirin (ASA) 81 mg DAILY GT 12/09/18 09:00 01/08/19 08:59 12/11/18 08:38 Atorvastatin Calcium (Lipitor) 10 mg BEDTIME GT 12/08/18 21:00 01/07/19 20:59 12/11/18 20:53 Bisacodyl (Dulcolax) 10 mg DAILYPRN PRN RECTAL constipation 12/08/18 20:45 01/07/19 20:44 Dextrose 1,000 ml @ 50 mls/hr Q20H IV 12/09/18 21:00 01/08/19 20:59 12/11/18 16:25 Docusate Sodium (Colace) 100 mg DAILY GT 12/10/18 09:00 01/08/19 08:59 12/11/18 08:41 Doxazosin Mesylate (Cardura) 1 mg QHS GT 12/08/18 21:00 01/07/19 20:59 12/11/18 20:53 Heparin Sodium (Porcine) (Heparin 5000 units/ml) 5,000 units EVERY 12 HOURS SUBQ 12/09/18 09:00 01/08/19 08:59 12/11/18 20:55 Isoniazid (Inh) 300 mg DAILY GT 12/09/18 09:00 01/08/19 08:59 12/11/18 08:39 Lansoprazole (Prevacid) 30 mg Q12HR GT 12/09/18 21:00 01/07/19 20:59 12/11/18 20:53 Levetiracetam (Keppra) 750 mg Q12HR GT 12/08/18 21:00 01/07/19 20:59 12/11/18 20:54 Magnesium Hydroxide (Mom) 30 ml DAILYPRN PRN GT constipation 12/08/18 20:45 01/07/19 20:44 Metoprolol Tartrate (Lopressor) 50 mg EVERY 12 HOURS GT 12/08/18 21:00 01/07/19 20:59 12/11/18 20:53 Multivitamins Therapeutic (Therapeutic Multivitamin) 1 ea DAILY ORAL 12/09/18 09:00 01/08/19 08:59 12/11/18 08:38 Piperacillin Sod/ Tazobactam Sod 3.375 gm/Sodium Chloride 110 ml @ 27.5 mls/hr Q8H IVPB 12/09/18 16:00 12/16/18 15:59 12/12/18 08:15 Pyridoxine HCl (Vitamin B6) 50 mg DAILY GT 12/10/18 09:00 01/08/19 10:29 12/11/18 08:38 Rifampin (Rifadin) 600 mg DAILY GT 12/09/18 10:30 01/08/19 10:29 12/11/18 08:41 Sodium Phosphate (Fleet's Sodium Phosl Enema) 133 ml QOD PRN RECTAL constipation 12/10/18 09:15 01/07/19 20:44 Zinc Sulfate (Zinc Sulfate) 220 mg DAILY GT 12/09/18 09:00 01/08/19 08:59 12/11/18 08:40 Subjective ROS Limited/Unobtainable: No Allergies: Coded Allergies: No Known Allergies (Unverified , 01/27/17) Objective Last 24 Hour Vital Signs Date Time Temp Pulse Resp B/P (MAP) Pulse Ox O2 Delivery O2 Flow Rate FiO2 12/14/18 08:58 98.7 12/14/18 08:49 82 26 30 12/14/18 08:30 90 146/73 12/14/18 08:30 90 146/73 12/14/18 08:00 89 12/14/18 08:00 Mechanical Ventilator 12/14/18 08:00 40 12/14/18 08:00 98.8 90 20 146/73 (97) 100 12/14/18 06:33 90 26 30 12/14/18 04:48 89 23 30 30 12/14/18 04:00 98.4 81 20 131/78 (95) 100 12/14/18 04:00 80 12/14/18 04:00 40 12/14/18 04:00 Mechanical Ventilator 12/14/18 02:58 80 23 30 30 12/14/18 01:04 83 22 30 30 12/14/18 00:00 82 12/14/18 00:00 98.1 81 18 125/66 (85) 100 12/14/18 00:00 Mechanical Ventilator 12/14/18 00:00 40 12/13/18 23:17 83 24 30 30 12/13/18 21:09 74 27 30 30 12/13/18 20:08 86 151/75 12/13/18 20:00 83 12/13/18 20:00 40 12/13/18 20:00 97.3 86 18 151/75 (100) 100 12/13/18 20:00 Mechanical Ventilator 12/13/18 19:02 83 23 Mechanical Ventilator 40 12/13/18 18:59 84 20 30 30 12/13/18 16:57 74 23 30 30 12/13/18 16:00 97.5 72 20 134/68 (90) 100 12/13/18 16:00 72 12/13/18 16:00 Mechanical Ventilator 12/13/18 16:00 40 12/13/18 15:12 70 20 30 30 12/13/18 12:58 67 17 30 30 12/13/18 12:00 Mechanical Ventilator 12/13/18 12:00 97.3 64 20 122/66 (84) 100 12/13/18 12:00 40 12/13/18 11:55 67 12/13/18 10:50 69 25 30 30 Intake and Output 12/13/18 12/14/18 19:00 07:00 Intake Total 1300 ml 1205 ml Output Total 625 ml 1050 ml Balance 675 ml 155 ml Intake Free Water 600 ml 300 ml IV Total 275 ml Tube Feeding 700 ml 630 ml Output Urine Total 625 ml 1050 ml # Bowel Movements 4 4 Laboratory Tests 12/14/18 05:03: Sodium Level 143, Potassium Level 4.2, Chloride Level 108H, Carbon Dioxide Level 30, Anion Gap 5, Blood Urea Nitrogen 27H, Creatinine 0.5L, Estimat Glomerular Filtration Rate , Glucose Level 96, Calcium Level 8.3L, Total Bilirubin 0.8, Aspartate Amino Transf (AST/SGOT) 30, Alanine Aminotransferase ( ALT/SGPT) 15, Alkaline Phosphatase 388H, Total Protein 6.6, Albumin 0.9L, Globulin 5.7, Albumin/Globulin Ratio 0.2L Current Medications Medications (Trade) Dose Ordered Sig/Iram Route PRN Reason Start Time Stop Time Status Last Admin Dose Admin Acetaminophen (Tylenol) 650 mg DAILY GT 12/10/18 09:00 01/08/19 08:59 12/14/18 08:28 Acetaminophen (Tylenol) 650 mg Q4H PRN GT Mild Pain/Temp > 100.5 12/09/18 11:00 01/07/19 20:44 Amlodipine Besylate (Norvasc) 10 mg DAILY GT 12/09/18 09:00 01/08/19 08:59 12/14/18 08:30 Artificial Tears (Akwa-Tears) 2 drop Q4H PRN BOTH EYES DRY EYES 12/08/18 20:45 01/07/19 20:44 Ascorbic Acid (Vitamin C) 500 mg DAILY GT 12/09/18 09:00 01/08/19 08:59 12/14/18 08:31 Aspirin (ASA) 81 mg DAILY GT 12/09/18 09:00 01/08/19 08:59 12/14/18 08:30 Atorvastatin Calcium (Lipitor) 10 mg BEDTIME GT 12/08/18 21:00 01/07/19 20:59 12/13/18 20:08 Bisacodyl (Dulcolax) 10 mg DAILYPRN PRN RECTAL constipation 12/08/18 20:45 01/07/19 20:44 Docusate Sodium (Colace) 100 mg DAILY GT 12/10/18 09:00 01/08/19 08:59 12/14/18 08:27 Doxazosin Mesylate (Cardura) 1 mg QHS GT 12/08/18 21:00 01/07/19 20:59 12/13/18 20:08 Heparin Sodium (Porcine) (Heparin 5000 units/ml) 5,000 units EVERY 12 HOURS SUBQ 12/09/18 09:00 01/08/19 08:59 12/14/18 08:43 Isoniazid (Inh) 300 mg DAILY GT 12/09/18 09:00 01/08/19 08:59 12/14/18 08:30 Lansoprazole (Prevacid) 30 mg Q12HR GT 12/09/18 21:00 01/07/19 20:59 12/14/18 08:30 Levetiracetam (Keppra) 750 mg Q12HR GT 12/08/18 21:00 01/07/19 20:59 12/14/18 08:29 Levofloxacin (Levaquin) 500 mg DAILY ORAL 12/12/18 10:45 12/19/18 10:44 12/14/18 08:30 Magnesium Hydroxide (Mom) 30 ml DAILYPRN PRN GT constipation 12/08/18 20:45 01/07/19 20:44 Metoprolol Tartrate (Lopressor) 50 mg EVERY 12 HOURS GT 12/08/18 21:00 01/07/19 20:59 12/14/18 08:30 Multivitamins Therapeutic (Therapeutic Multivitamin) 1 ea DAILY ORAL 12/09/18 09:00 01/08/19 08:59 12/14/18 08:30 Polymyxin B Sulfate 498039 units/Dextrose 550 ml @ 550 mls/hr Q12HR@0000,1200 IV 12/14/18 12:00 12/21/18 11:59 Pyridoxine HCl (Vitamin B6) 50 mg DAILY GT 12/10/18 09:00 01/08/19 10:29 12/14/18 08:30 Rifampin (Rifadin) 600 mg DAILY GT 12/09/18 10:30 01/08/19 10:29 12/14/18 08:30 Sodium Phosphate (Fleet's Sodium Phosl Enema) 133 ml QOD PRN RECTAL constipation 12/10/18 09:15 01/07/19 20:44 Zinc Sulfate (Zinc Sulfate) 220 mg DAILY GT 12/09/18 09:00 01/08/19 08:59 12/14/18 08:30 Jones Rasmussen MD December 14, 2018 10:06
--- NOTE | 2018-12-14 10:21 | Infectious Diseases Prog Note ---
Assessment/Plan Assessment/Plan ASSESSMENT: This is a 73-year-old gentleman with history of stroke, seizure disorder, respiratory failure, status post tracheostomy, who comes in with fevers and is found to have, 1. Bilateral pneumonia with Pseudomonas & Stenotrophomonas 2. History of pulmonary tuberculosis, on therapy. 3. Seizure disorder. 4. CVA. 5. Anemia 6. Pressure ulcers PLAN: 1. Discontinue IV Polymyxin & Levaquin 2. Continue isoniazid and rifampin & pyridoxine. Subjective ROS Limited/Unobtainable: Yes Allergies: Coded Allergies: No Known Allergies (Unverified , 01/27/17) Objective Vital Signs Last 24 Hour Vital Signs Date Time Temp Pulse Resp B/P (MAP) Pulse Ox O2 Delivery O2 Flow Rate FiO2 12/14/18 08:58 98.7 12/14/18 08:49 82 26 30 12/14/18 08:30 90 146/73 12/14/18 08:30 90 146/73 12/14/18 08:00 89 12/14/18 08:00 Mechanical Ventilator 12/14/18 08:00 40 12/14/18 08:00 98.8 90 20 146/73 (97) 100 12/14/18 06:33 90 26 30 12/14/18 04:48 89 23 30 30 12/14/18 04:00 98.4 81 20 131/78 (95) 100 12/14/18 04:00 80 12/14/18 04:00 40 12/14/18 04:00 Mechanical Ventilator 12/14/18 02:58 80 23 30 30 12/14/18 01:04 83 22 30 30 12/14/18 00:00 82 12/14/18 00:00 98.1 81 18 125/66 (85) 100 12/14/18 00:00 Mechanical Ventilator 12/14/18 00:00 40 12/13/18 23:17 83 24 30 30 12/13/18 21:09 74 27 30 30 12/13/18 20:08 86 151/75 12/13/18 20:00 83 12/13/18 20:00 40 12/13/18 20:00 97.3 86 18 151/75 (100) 100 12/13/18 20:00 Mechanical Ventilator 12/13/18 19:02 83 23 Mechanical Ventilator 40 12/13/18 18:59 84 20 30 30 12/13/18 16:57 74 23 30 30 12/13/18 16:00 97.5 72 20 134/68 (90) 100 12/13/18 16:00 72 12/13/18 16:00 Mechanical Ventilator 12/13/18 16:00 40 12/13/18 15:12 70 20 30 30 12/13/18 12:58 67 17 30 30 12/13/18 12:00 Mechanical Ventilator 12/13/18 12:00 97.3 64 20 122/66 (84) 100 12/13/18 12:00 40 12/13/18 11:55 67 12/13/18 10:50 69 25 30 30 Height (Feet): 5 Height (Inches): 7.00 Weight (Pounds): 118 HEENT: status post trach Respiratory/Chest: rhonchi - bilaterally, other - on ventilator Cardiovascular: normal rate Abdomen: soft, non tender, other - GT feeding Extremities: no edema Neurologic/Psychiatric: unresponsiveness Musculoskeletal: atrophy Laboratory Tests Test 12/14/18 05:03 Sodium Level 143 MMOL/L (136-145) Potassium Level 4.2 MMOL/L (3.5-5.1) Chloride Level 108 MMOL/L (98-107) H Carbon Dioxide Level 30 MMOL/L (21-32) Anion Gap 5 mmol/L (5-15) Blood Urea Nitrogen 27 mg/dL (7-18) H Creatinine 0.5 MG/DL (0.55-1.30) L Estimat Glomerular Filtration Rate mL/min (>60) Glucose Level 96 MG/DL (74-106) Calcium Level 8.3 MG/DL (8.5-10.1) L Total Bilirubin 0.8 MG/DL (0.2-1.0) Aspartate Amino Transf (AST/SGOT) 30 U/L (15-37) Alanine Aminotransferase (ALT/SGPT) 15 U/L (12-78) Alkaline Phosphatase 388 U/L (46-116) H Total Protein 6.6 G/DL (6.4-8.2) Albumin 0.9 G/DL (3.4-5.0) L Globulin 5.7 g/dL Albumin/Globulin Ratio 0.2 (1.0-2.7) L Current Medications Medications (Trade) Dose Ordered Sig/Iram Route PRN Reason Start Time Stop Time Status Last Admin Dose Admin Acetaminophen (Tylenol) 650 mg DAILY GT 12/10/18 09:00 01/08/19 08:59 12/14/18 08:28 Acetaminophen (Tylenol) 650 mg Q4H PRN GT Mild Pain/Temp > 100.5 12/09/18 11:00 01/07/19 20:44 Amlodipine Besylate (Norvasc) 10 mg DAILY GT 12/09/18 09:00 01/08/19 08:59 12/14/18 08:30 Artificial Tears (Akwa-Tears) 2 drop Q4H PRN BOTH EYES DRY EYES 12/08/18 20:45 01/07/19 20:44 Ascorbic Acid (Vitamin C) 500 mg DAILY GT 12/09/18 09:00 01/08/19 08:59 12/14/18 08:31 Aspirin (ASA) 81 mg DAILY GT 12/09/18 09:00 01/08/19 08:59 12/14/18 08:30 Atorvastatin Calcium (Lipitor) 10 mg BEDTIME GT 12/08/18 21:00 01/07/19 20:59 12/13/18 20:08 Bisacodyl (Dulcolax) 10 mg DAILYPRN PRN RECTAL constipation 12/08/18 20:45 01/07/19 20:44 Docusate Sodium (Colace) 100 mg DAILY GT 12/10/18 09:00 01/08/19 08:59 12/14/18 08:27 Doxazosin Mesylate (Cardura) 1 mg QHS GT 12/08/18 21:00 01/07/19 20:59 12/13/18 20:08 Heparin Sodium (Porcine) (Heparin 5000 units/ml) 5,000 units EVERY 12 HOURS SUBQ 12/09/18 09:00 01/08/19 08:59 12/14/18 08:43 Isoniazid (Inh) 300 mg DAILY GT 12/09/18 09:00 01/08/19 08:59 12/14/18 08:30 Lansoprazole (Prevacid) 30 mg Q12HR GT 12/09/18 21:00 01/07/19 20:59 12/14/18 08:30 Levetiracetam (Keppra) 750 mg Q12HR GT 12/08/18 21:00 01/07/19 20:59 12/14/18 08:29 Levofloxacin (Levaquin) 500 mg DAILY ORAL 12/12/18 10:45 12/19/18 10:44 12/14/18 08:30 Magnesium Hydroxide (Mom) 30 ml DAILYPRN PRN GT constipation 12/08/18 20:45 01/07/19 20:44 Metoprolol Tartrate (Lopressor) 50 mg EVERY 12 HOURS GT 12/08/18 21:00 01/07/19 20:59 12/14/18 08:30 Multivitamins Therapeutic (Therapeutic Multivitamin) 1 ea DAILY ORAL 12/09/18 09:00 01/08/19 08:59 12/14/18 08:30 Polymyxin B Sulfate [id number] units/Dextrose 550 ml @ 550 mls/hr Q12HR@0000,1200 IV 12/14/18 12:00 12/21/18 11:59 Pyridoxine HCl (Vitamin B6) 50 mg DAILY GT 12/10/18 09:00 01/08/19 10:29 12/14/18 08:30 Rifampin (Rifadin) 600 mg DAILY GT 12/09/18 10:30 01/08/19 10:29 12/14/18 08:30 Sodium Phosphate (Fleet's Sodium Phosl Enema) 133 ml QOD PRN RECTAL constipation 12/10/18 09:15 01/07/19 20:44 Zinc Sulfate (Zinc Sulfate) 220 mg DAILY GT 12/09/18 09:00 01/08/19 08:59 12/14/18 08:30 Rahul Shen MD December 14, 2018 10:21
[2018-12-14] MEDS: Polymyxin B Sulfate 500,000 units in D5W 550ml IV SCH ×2 (11:23→23:23)
--- NOTE | 2018-12-14 11:35 | NUR ---
CASE MANAGEMENT: REVIEW 12/14/2018 SI: SEPSIS. ACUTE RESP FAILURE. 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
[2018-12-14 12:00] VITALS: BP 119/57
--- NOTE | 2018-12-14 15:16 | NUR ---
NURSE NOTES: left a message to dr edyta ho regarding his notes entered 12/14 1020 to discontinue IV polymyxin IV and levaquin. awaits callback and new order as of this time.
[2018-12-14] MEDS ORDERED: NS 275ml ONE (15:48)
[2018-12-14 16:00] VITALS: BP 128/63
--- NOTE | 2018-12-14 16:31 | NUR ---
NURSE NOTES: dr lan called back and ordered to disregard notes regarding levaquin & polymycin. dr lan ordered to CONTINUE levaquin & polymyxin IV. will take note, endorse and carry out.
--- NOTE | 2018-12-14 17:47 | NUR ---
NURSE NOTES: per dr mcdaniels, lower down the feeding to 30ml/hr due to diarrhea. will take note and carry out.
--- NOTE | 2018-12-14 18:25 | Surgery Progress Note ---
Surgery Progress Note Subjective Additional Comments no acute events. exam unchanged. stable otherwise Objective Last 24 Hour Vital Signs Date Time Temp Pulse Resp B/P (MAP) Pulse Ox O2 Delivery O2 Flow Rate FiO2 12/14/18 17:02 76 21 30 12/14/18 16:00 40 12/14/18 16:00 Mechanical Ventilator 12/14/18 16:00 97.7 73 17 128/63 (84) 100 12/14/18 15:44 86 12/14/18 15:10 74 25 30 12/14/18 13:01 68 25 30 12/14/18 12:00 69 12/14/18 12:00 40 12/14/18 12:00 Mechanical Ventilator 12/14/18 12:00 98.2 69 18 119/57 (77) 100 12/14/18 10:58 71 19 30 12/14/18 08:58 98.7 12/14/18 08:49 82 26 30 12/14/18 08:30 90 146/73 12/14/18 08:30 90 146/73 12/14/18 08:00 89 12/14/18 08:00 Mechanical Ventilator 12/14/18 08:00 40 12/14/18 08:00 98.8 90 20 146/73 (97) 100 12/14/18 06:33 90 26 30 12/14/18 04:48 89 23 30 30 12/14/18 04:00 98.4 81 20 131/78 (95) 100 12/14/18 04:00 80 12/14/18 04:00 40 12/14/18 04:00 Mechanical Ventilator 12/14/18 02:58 80 23 30 30 12/14/18 01:04 83 22 30 30 12/14/18 00:00 82 12/14/18 00:00 98.1 81 18 125/66 (85) 100 12/14/18 00:00 Mechanical Ventilator 12/14/18 00:00 40 12/13/18 23:17 83 24 30 30 12/13/18 21:09 74 27 30 30 12/13/18 20:08 86 151/75 12/13/18 20:00 83 12/13/18 20:00 40 12/13/18 20:00 97.3 86 18 151/75 (100) 100 12/13/18 20:00 Mechanical Ventilator 12/13/18 19:02 83 23 Mechanical Ventilator 40 12/13/18 18:59 84 20 30 30 I&O Intake and Output 12/13/18 12/14/18 19:00 07:00 Intake Total 1300 ml 1205 ml Output Total 625 ml 1050 ml Balance 675 ml 155 ml Intake Free Water 600 ml 300 ml IV Total 275 ml Tube Feeding 700 ml 630 ml Output Urine Total 625 ml 1050 ml # Bowel Movements 4 4 Dressing: saturated Wound: other Drains: other Cardiovascular: RSR Respiratory: decreased breath sounds Abdomen: soft, present bowel sounds, non-distended Extremities: no cyanosis, other Laboratory Tests Test 12/14/18 05:03 12/14/18 11:00 Sodium Level 143 MMOL/L (136-145) Potassium Level 4.2 MMOL/L (3.5-5.1) Chloride Level 108 MMOL/L (98-107) H Carbon Dioxide Level 30 MMOL/L (21-32) Anion Gap 5 mmol/L (5-15) Blood Urea Nitrogen 27 mg/dL (7-18) H Creatinine 0.5 MG/DL (0.55-1.30) L Estimat Glomerular Filtration Rate mL/min (>60) Glucose Level 96 MG/DL (74-106) Calcium Level 8.3 MG/DL (8.5-10.1) L Total Bilirubin 0.8 MG/DL (0.2-1.0) Aspartate Amino Transf (AST/SGOT) 30 U/L (15-37) Alanine Aminotransferase (ALT/SGPT) 15 U/L (12-78) Alkaline Phosphatase 388 U/L (46-116) H Total Protein 6.6 G/DL (6.4-8.2) Albumin 0.9 G/DL (3.4-5.0) L Globulin 5.7 g/dL Albumin/Globulin Ratio 0.2 (1.0-2.7) L Stool Occult Blood Pending Plan Problems: (1) Decubitus ulcer Assessment & Plan: Pt presented on admission with multiple full thickness pressure injuries. Skin assessed under trach collar and no evidence of skin breakdown noted. Unstageable pressure injury with 100% yellow slough noted to L earlobe. Periwound skin tone is darker without erythema . No odor or exudate noted.( L00.3cm x (W)0.4cm. Hyperpigmentation from previous wound noted to R scapula noted and stable/ healing. 2x Full thickness pressure injuries noted to thoracic spine.(#1Proximally)Full thickness pressure injury with 95% yellow slough at base of wound with erythematous borders.Periwound skin tone is darker without induration or fluctuance.No odor or exudate noted(L)2.3cm x (W)1.7cm. (#2 inferior)Full thickness pressure injury with 60% loose fibrinous slough,10% necrosis,30% red granulation. Edges adherent to base of wound and are flat. Small amt seropurulent ,non-odorous exudate noted. Additionally,scattered partial thickness wounds noted periwound. R of thoracic spine Small full thickness pressure injury with 100% yellow slough at base of wound. Edges adherent and flat. No odor or exudate noted. (L) 0.6cm x (W)0.5cm. Full thickness pressure injury to lumbar spine. Base of wound with scattered slough ,10% necrosis. (+) maceration along borders. Darker skin tone without elevation in skin temp ,induration or fluctuance periwound.(L)4.5cm x (W)5cm. Full thickness pressure injury noted to R Iliac.Base of wound has 75% yellow slough,25% beefy red,(+) maceration along borders. Small amt non-odorous serous exudate noted.(L)4.8cm x (W)4cm.At base of R iliac pressure injury an area of darker skin tone that is indurated noted (L) 4.5cm x (W)6cm. Full thickness pressure injury L Iliac. 80% yellow/velazquez slough,20% erythematous. edges adherent and flat. Periwound withot erythema or induration. (L)3.3cm x (W)3.5cm. NO odor or exudate noted. Full thickness pressure injury noted to R trochanter with undermining. 80% yellow/velazquez slough,20% erythematous at base. Bone is palpable. (+) maceration along borders.Darker skin tone with induration periwound. No elevation in skin temp noted.Small amt non-odorous seropurulent exudate noted.(L)4.5cm x (W) 6.3cmx (D)2.8cm, Undermining 12-12 by 2.6cm @9o'clock. DTPI noted to R hip.Base of indurated and black in colour.(L)2cm x (W)5.7cm. Full thickness sacral pressure injury.25% yellow slough,75%erythematous.Edges adherent and flat. (L)8.7cm x (W)5.2cm x (W)2cm. In addition to sacral wound, periwound noted to have multiple small wounds that are pink and dry. Partial thickness pressure injury posterior upper R thigh.Base of wound moist viable.Edges loose and darker than is normal skin tone.Periwound without induration or elevation in skin temp.Small amt serosanguineous exudate noted (L) 1.5cm x (W)1.3cm. Full thickness pressure injury L trochanter.100% soft brown/black necrosis noted at base of wound. Erythematous borders. Small amt non-odorous brown exudate noted. Periwound indurated with darker skin tone. (L)4.5cm x (W)4.2cm. R heel boggy with non-blanchable erythema .Historical scar noted to R heel. DTPI L heel noted. Maroon discoloration with fluctuance centrally ,indurated borders noted.(L)3.5cm x (W)2cm. Tx.Plan: Cleanse wounds Thoracic spine,R and L of thoracic with Saline. Apply Therahoney.Apply Triad periwound. Cover each wound with Optifoam drsgs. Change every 3 days and prn. Cleanse wound R trochanter with Saline. Apply Therahoney. Apply Triad periwound. Cover with Optifoam drsg every 3 days and prn. Cleanse wound Lumbar spine with Saline. Apply Therahoney.Apply Triad paste periwound. Cover with Optifoam drsg every 3 days and prn. Cleanse wound L trochanter with Saline. Apply Therahoney.Apply Triad Paste periwound. Cover with Optifoam drsg every 3 days and prn. Cleanse wound posterior upper R thigh with saline.Apply Triad Paste .cover with Optifoam drsg .Change every 3 days and prn. Cleanse wounds R and L Iliac with Saline. Apply Therahoney.Apply Therahoney periwound. Cover with Optifoam drsg every 3 days and prn. Cleanse L earlobe with Saline. Apply Therahoney. Cover with Optifoam drsg. Change Daily and prn. Apply Cavilon Skin Barrier to R and L heels .Cover each heel with Optifoam drsgs. Change every 7 days and prn. Apply Cavilon Skin BArrier to Medial aspects of R and L knees. Cover each knee with Optifoam drsg. Change every 7 days and prn. Air Fluidized Mattress. Reposition at least every 2hours or as tolerated. Off-load heels with pillow. (2) Sepsis Assessment & Plan: On Abx CXR Monitor labs (3) Dehydration Assessment & Plan: On IV fluids okay to resume tube feeds (4) Respiratory distress Assessment & Plan: on vent via trach cont w/ breathing treatments (5) Abnormal LFTs Assessment & Plan: alk phos elevated trend for now * Nodular contour of the liver suggestive of cirrhosis. This has been previously described. No focal hepatic mass lesion appreciated sonographically. * Splenomegaly with the spleen measuring 15 .4 cm in length. Trace ascites also noted. Findings may indicate portal hypertension. * Status post cholecystectomy. No biliary ductal dilatation. * Simple appearing left renal cyst. * Left pleural effusion partially visualized. Zev Candelaria December 14, 2018 18:25
--- NOTE | 2018-12-14 19:05 | NUR ---
NURSE NOTES: Received report from Sylvia REEVES, pt. in bed obtunded, no signs or symptoms of acute cardiac or respiratory distress noted, pt. appears to be tolerating current vent settings at AC 12, TV 500, Fio2 at 40% and Peep 5- no distress noted, bed in lowest position and call light within easy reach, bed alarm on and side rails up x's3- safety brakes engaged, side rails padded for seizure precautions, G tube running Vital AF at 30cc/hr- no residual noted, pt. appears to be clean and dry, pt. has Manzo intact and draining to gravity, Rt. hand 22G intact and patent, Left hand 24G IV intact and patent, safety measures continued, will continue with plan of care.
[2018-12-14 20:00] VITALS: BP 123/65
[2018-12-14] MEDS: Doxazosin 1mg Tab GT SCH (20:51)
[2018-12-15] VITALS: BP 119/63
[2018-12-15 04:00] VITALS: BP 124/73
[2018-12-15 04:58] LABS: BASOPHILS % (AUTO) 0.5 % (0.0-2.0); EOSINOPHILS % (AUTO) 5.8 % (0.0-3.0); HEMATOCRIT 27.1 % (42.0-52.0); HEMOGLOBIN 8.5 G/DL (14.2-18.0); LYMPHOCYTES % (AUTO) 12.5 % (20.0-45.0); MEAN CORPUSCULAR VOLUME 81 FL (80-99); MONOCYTES % (AUTO) 6.6 % (1.0-10.0); NEUTROPHILS % (AUTO) 74.5 % (45.0-75.0); PLATELET COUNT 375 K/UL (150-450); RED BLOOD COUNT 3.34 M/UL (4.70-6.10); RED CELL DISTRIBUTION WIDTH 17.2 % (11.6-14.8); WHITE BLOOD COUNT 9.2 K/UL (4.8-10.8)
[2018-12-15 05:25] LABS: ALANINE AMINOTRANSFERASE 8 U/L (12-78); ALBUMIN/GLOBULIN RATIO 0.2 (1.0-2.7); ALKALINE PHOSPHATASE 365 U/L (46-116); ANION GAP 4 mmol/L (5-15); ASPARTATE AMINO TRANSFERASE 31 U/L (15-37); BILIRUBIN,TOTAL 0.7 MG/DL (0.2-1.0); BLOOD UREA NITROGEN 25 mg/dL (7-18); CALCIUM 8.4 MG/DL (8.5-10.1); CARBON DIOXIDE 30 MMOL/L (21-32); CHLORIDE 105 MMOL/L (98-107); CREATININE 0.5 MG/DL (0.55-1.30); POTASSIUM 4.2 MMOL/L (3.5-5.1); SODIUM 139 MMOL/L (136-145)
--- NOTE | 2018-12-15 06:59 | NUR ---
RESPIRATORY NOTE: Patient received mechanically ventilated on PB 840 with current ordered vent settings. Patient has trach size 7.0 Portex cuffed that is secured with trach tie and guard. Patient appears comfortable at this time. There is no respiratory distress or shortness of breath noted. Vent alarms are functional and audible. There is an ambu bag available at the bedside and the vent is connected to a red outlet. Will continue to monitor.
--- NOTE | 2018-12-15 07:15 | NUR ---
HAND-OFF: Report given to Yariel REEVES, Pt. remains stable and no signs of distress noted.
--- NOTE | 2018-12-15 08:00 | NUR ---
NURSE NOTES: received pt in the bed, obtunded, vent dependent, vital signs stable, no co pain, no SOB, skin warm and dry to touch, multiple decub, dressing dry and intact, tolerate GT feeding well, bed in low position, HOB elevated.
[2018-12-15 08:01] VITALS: BP 139/68
--- NOTE | 2018-12-15 08:26 | Pulmonology Progress Note ---
Assessment/Plan Assessment/Plan ASSESSMENT: history of stroke, respiratory failure, hypernatremia, acute on chronic renal failure, chronic encephalopathy, seizure disorder, pulmonary tuberculosis, and anemia possible sepsis, pneumonia, MDR PLAN weekend events noted IV antibiotics reviewed respiratory care reviewed Ventilatory support full on AC no wean SNF meds noted supportive care as is monitor electrolytes suction and monitor no wean planned monitor imaging and labs support as needed oxygen therapy noted prognosis guarded; consider DNR impression, plan, and exam edited and reviewed in detail care discussed with RN Subjective ROS Limited/Unobtainable: Yes Allergies: Coded Allergies: No Known Allergies (Unverified , 01/27/17) Subjective care noted on vent bed bound reviewed care reviewed cultures Objective Last 24 Hour Vital Signs Date Time Temp Pulse Resp B/P (MAP) Pulse Ox O2 Delivery O2 Flow Rate FiO2 12/15/18 08:01 99.0 85 23 139/68 (91) 100 12/15/18 08:00 Mechanical Ventilator 12/15/18 08:00 40 12/15/18 06:55 79 20 30 12/15/18 05:26 82 20 30 12/15/18 04:00 40 12/15/18 04:00 98.2 78 20 124/73 (90) 100 12/15/18 04:00 Mechanical Ventilator 12/15/18 04:00 70 12/15/18 02:51 73 21 30 12/15/18 00:43 77 18 30 12/15/18 00:00 Mechanical Ventilator 12/15/18 00:00 77 12/15/18 00:00 97.9 72 18 119/63 (81) 100 12/15/18 00:00 40 12/14/18 22:31 74 20 30 12/14/18 20:51 87 123/65 12/14/18 20:40 83 18 30 12/14/18 20:00 98.2 78 18 123/65 (84) 100 12/14/18 20:00 40 12/14/18 20:00 Mechanical Ventilator 12/14/18 20:00 79 12/14/18 18:40 77 21 30 12/14/18 17:02 76 21 30 12/14/18 16:00 40 12/14/18 16:00 Mechanical Ventilator 12/14/18 16:00 97.7 73 17 128/63 (84) 100 5/12/19 15:44 86 12/14/18 15:10 74 25 30 12/14/18 13:01 68 25 30 12/14/18 12:00 69 12/14/18 12:00 40 12/14/18 12:00 Mechanical Ventilator 12/14/18 12:00 98.2 69 18 119/57 (77) 100 12/14/18 10:58 71 19 30 12/14/18 08:58 98.7 12/14/18 08:49 82 26 30 12/14/18 08:30 90 146/73 12/14/18 08:30 90 146/73 Intake and Output 12/14/18 12/15/18 19:00 07:00 Intake Total 1650 ml 1270 ml Output Total 850 ml 650 ml Balance 800 ml 620 ml Intake Free Water 380 ml 450 ml IV Total 550 ml 550 ml Tube Feeding 720 ml 270 ml Output Urine Total 850 ml 650 ml # Bowel Movements 6 7 Objective on vent chronically ill trach clear breath sounds bilaterally without rhonchi or wheeze [id number] without MRG NABS nontender no HSM; Gt no CCE; contractures nonfocal Laboratory Tests 12/14/18 11:00: Stool Occult Blood Negative 12/15/18 03:20: White Blood Count 9.2, Red Blood Count 3.34L, Hemoglobin 8.5L, Hematocrit 27.1L , Mean Corpuscular Volume 81, Mean Corpuscular Hemoglobin 25.3L, Mean Corpuscular Hemoglobin Concent 31.2L, Red Cell Distribution Width 17.2H, Platelet Count 375, Mean Platelet Volume 5.3L, Neutrophils (%) (Auto) 74.5, Lymphocytes (%) (Auto) 12.5L, Monocytes (%) (Auto) 6.6, Eosinophils (%) (Auto) 5.8H, Basophils (%) (Auto) 0.5, Sodium Level 139, Potassium Level 4.2, Chloride Level 105, Carbon Dioxide Level 30, Anion Gap 4L, Blood Urea Nitrogen 25H, Creatinine 0.5L, Estimat Glomerular Filtration Rate , Glucose Level 79, Calcium Level 8.4L, Total Bilirubin 0.7, Aspartate Amino Transf (AST/SGOT) 31, Alanine Aminotransferase (ALT/SGPT) 8L, Alkaline Phosphatase 365H, Total Protein 6.7, Albumin 1.0L, Globulin 5.7, Albumin/Globulin Ratio 0.2L, Lipase 273 Current Medications Medications (Trade) Dose Ordered Sig/Iram Route PRN Reason Start Time Stop Time Status Last Admin Dose Admin Acetaminophen (Tylenol) 650 mg DAILY GT 12/10/18 09:00 01/08/19 08:59 12/14/18 08:28 Acetaminophen (Tylenol) 650 mg Q4H PRN GT Mild Pain/Temp > 100.5 12/09/18 11:00 01/07/19 20:44 Amlodipine Besylate (Norvasc) 10 mg DAILY GT 12/09/18 09:00 01/08/19 08:59 12/14/18 08:30 Artificial Tears (Akwa-Tears) 2 drop Q4H PRN BOTH EYES DRY EYES 12/08/18 20:45 01/07/19 20:44 12/14/18 18:30 Ascorbic Acid (Vitamin C) 500 mg DAILY GT 12/09/18 09:00 01/08/19 08:59 12/14/18 08:31 Aspirin (ASA) 81 mg DAILY GT 12/09/18 09:00 01/08/19 08:59 12/14/18 08:30 Atorvastatin Calcium (Lipitor) 10 mg BEDTIME GT 12/08/18 21:00 01/07/19 20:59 12/14/18 20:52 Bisacodyl (Dulcolax) 10 mg DAILYPRN PRN RECTAL constipation 12/08/18 20:45 01/07/19 20:44 Docusate Sodium (Colace) 100 mg DAILY GT 12/10/18 09:00 01/08/19 08:59 12/14/18 08:27 Doxazosin Mesylate (Cardura) 1 mg QHS GT 12/08/18 21:00 01/07/19 20:59 12/14/18 20:51 Heparin Sodium (Porcine) (Heparin 5000 units/ml) 5,000 units EVERY 12 HOURS SUBQ 12/09/18 09:00 01/08/19 08:59 12/14/18 20:53 Isoniazid (Inh) 300 mg DAILY GT 12/09/18 09:00 01/08/19 08:59 12/14/18 08:30 Lansoprazole (Prevacid) 30 mg Q12HR GT 12/09/18 21:00 01/07/19 20:59 12/14/18 20:51 Levetiracetam (Keppra) 750 mg Q12HR GT 12/08/18 21:00 01/07/19 20:59 12/14/18 20:51 Levofloxacin (Levaquin) 500 mg DAILY ORAL 12/12/18 10:45 12/19/18 10:44 12/14/18 08:30 Magnesium Hydroxide (Mom) 30 ml DAILYPRN PRN GT constipation 12/08/18 20:45 01/07/19 20:44 Metoprolol Tartrate (Lopressor) 50 mg EVERY 12 HOURS GT 12/08/18 21:00 01/07/19 20:59 12/14/18 20:51 Multivitamins Therapeutic (Therapeutic Multivitamin) 1 ea DAILY ORAL 12/09/18 09:00 01/08/19 08:59 12/14/18 08:30 Polymyxin B Sulfate 900172 units/Dextrose 550 ml @ 550 mls/hr Q12HR@0000,1200 IV 12/14/18 12:00 12/21/18 11:59 12/14/18 23:23 Pyridoxine HCl (Vitamin B6) 50 mg DAILY GT 12/10/18 09:00 01/08/19 10:29 12/14/18 08:30 Rifampin (Rifadin) 600 mg DAILY GT 12/09/18 10:30 01/08/19 10:29 12/14/18 08:30 Sodium Phosphate (Fleet's Sodium Phosl Enema) 133 ml QOD PRN RECTAL constipation 12/10/18 09:15 01/07/19 20:44 Zinc Sulfate (Zinc Sulfate) 220 mg DAILY GT 12/09/18 09:00 01/08/19 08:59 12/14/18 08:30 Nakul Cisse MD December 15, 2018 08:26
[2018-12-15] MEDS: Docusate 100mg/10ml Liq GT SCH (08:34)
[2018-12-15] MEDS: Acetaminophen 650mg/20.3ml GT SCH (08:34)
[2018-12-15] MEDS: levETIRAcetam 500mg/5ml Liquid GT SCH ×2 (08:35→20:54)
[2018-12-15] MEDS: Pyridoxine 50mg tab GT SCH (08:36)
[2018-12-15] MEDS: Heparin 5000 units/ml inj SUBQ SCH ×2 (08:36→20:56)
[2018-12-15] MEDS: Aspirin Baby 81mg GT SCH (08:36)
[2018-12-15] MEDS: Zinc Sulfate 220mg cap GT SCH (08:37)
[2018-12-15] MEDS: Ascorbic Acid 500mg tab GT SCH (08:37)
[2018-12-15] MEDS: Metoprolol Tartrate 50mg tab GT SCH ×2 (08:38→20:55)
[2018-12-15] MEDS: Isoniazid 300mg tab GT SCH (08:39)
[2018-12-15] MEDS: Levofloxacin 500mg tab ORAL SCH (08:39)
[2018-12-15] MEDS: Multivitamin w/Minerals tab ORAL SCH (08:39)
--- NOTE | 2018-12-15 08:51 | NUR ---
RADIOLOGY DEPT., CHEST X-RAY DONE.-P.DYE
--- NOTE | 2018-12-15 10:24 | NUR ---
*-* INSURANCE *-* UPDATED CLINICALS HAVE BEEN FAXED TO: [facility] P:[phone] F:[phone]
--- NOTE | 2018-12-15 10:55 | NUR ---
RD ASSESSMENT & RECOMMENDATIONS SEE CARE ACTIVITY FOR COMPLETE ASSESSMENT DAILY ESTIMATED NEEDS: Needs based on Underweight, TF [employer] FLYING, Critical care, wounds/49.5kg 30-40 kcals/kg 9984-6874 total kcals 1.5-2 g protein/kg 74-99 g total protein 25-30 mL/kg 3994-0948 total fluid mLs NUTRITION DIAGNOSIS: 1) Swallowing difficulty r/t dysphagia, respiratory status as evidenced by pt is PEG dep, trach/vent dep. . 2) Increased kcal/prot needs R/T underweight status and wound healing as evidenced by low BMI under guidelines, noted w/ mod-severe generalized wasting, pt w/ multiple advanced wounds, see WC eval. CURRENT TF: Vital AF 1.2 @30ml /hr x20 hrs ENTERAL NUTRITION RECOMMENDATIONS: Vital AF 1.2 @ 70ml/hr x20 hrs as able to provide 1400ml, 1680kcal, 105g prot, 809ml free water - As able rec to increase by 5ml/hr q4-6 hrs to goal - Meets 100% est kcal and protein needs. - HOB over 30 degrees/ water flush per MD ----- ADDITIONAL RECOMMENDATIONS: 1) Via GT add YOVNAI w/ 4-6oz fluid BID for wound care 2) RECALIBRATE BED SCALE FOR ACCURATE CBW (bed scale reads in error) + weekly wts given underweight status 3) Check lytes daily, replete as needed 4) Monitor BGs closely, need for SSI .
[2018-12-15 12:00] VITALS: BP 110/58
--- NOTE | 2018-12-15 12:07 | Diagnostic Imaging Report ---
Indication: Dyspnea Comparison: 12/08/2018 A single view chest radiograph was obtained. Findings: Interstitial edema and prominent pulmonary vascularity demonstrated. Small bilateral pleural effusion suspected. Tracheostomy noted. Heart size is stable. IMPRESSION: Interstitial edema/CHF. No significant change appreciated
--- NOTE | 2018-12-15 13:14 | Infectious Diseases Prog Note ---
Assessment/Plan Assessment/Plan ASSESSMENT: This is a 73-year-old gentleman with history of stroke, seizure disorder, respiratory failure, status post tracheostomy, who comes in with fevers and is found to have, 1. Bilateral pneumonia with Pseudomonas & Stenotrophomonas 2. History of pulmonary tuberculosis, on therapy. 3. Seizure disorder. 4. CVA. 5. Anemia 6. Pressure ulcers PLAN: 1. continue IV Polymyxin & Levaquin 2. Continue isoniazid and rifampin & pyridoxine. Subjective ROS Limited/Unobtainable: Yes Allergies: Coded Allergies: No Known Allergies (Unverified , 01/27/17) Objective Vital Signs Last 24 Hour Vital Signs Date Time Temp Pulse Resp B/P (MAP) Pulse Ox O2 Delivery O2 Flow Rate FiO2 12/15/18 13:00 66 21 30 12/15/18 12:01 40 12/15/18 12:01 Mechanical Ventilator 12/15/18 12:00 98.3 68 21 110/58 (75) 100 12/15/18 11:22 68 18 30 12/15/18 09:05 75 19 30 12/15/18 09:04 99.0 12/15/18 08:39 85 139/68 12/15/18 08:38 85 139/68 12/15/18 08:01 99.0 85 23 139/68 (91) 100 12/15/18 08:00 Mechanical Ventilator 12/15/18 08:00 40 12/15/18 08:00 78 12/15/18 06:55 79 20 30 12/15/18 05:26 82 20 30 12/15/18 04:00 40 12/15/18 04:00 98.2 78 20 124/73 (90) 100 12/15/18 04:00 Mechanical Ventilator 12/15/18 04:00 70 12/15/18 02:51 73 21 30 12/15/18 00:43 77 18 30 12/15/18 00:00 Mechanical Ventilator 12/15/18 00:00 77 12/15/18 00:00 97.9 72 18 119/63 (81) 100 12/15/18 00:00 40 12/14/18 22:31 74 20 30 12/14/18 20:51 87 123/65 12/14/18 20:40 83 18 30 12/14/18 20:00 98.2 78 18 123/65 (84) 100 12/14/18 20:00 40 12/14/18 20:00 Mechanical Ventilator 12/14/18 20:00 79 12/14/18 18:40 77 21 30 12/14/18 17:02 76 21 30 12/14/18 16:00 40 12/14/18 16:00 Mechanical Ventilator 12/14/18 16:00 97.7 73 17 128/63 (84) 100 12/14/18 15:44 86 12/14/18 15:10 74 25 30 Height (Feet): 5 Height (Inches): 7.00 Weight (Pounds): 118 HEENT: status post trach Respiratory/Chest: lungs clear, other - on ventilator Cardiovascular: normal rate Abdomen: soft, non tender, other - GT feeding Extremities: no edema Neurologic/Psychiatric: unresponsiveness Musculoskeletal: atrophy Laboratory Tests Test 12/15/18 03:20 White Blood Count 9.2 K/UL (4.8-10.8) Red Blood Count 3.34 M/UL (4.70-6.10) L Hemoglobin 8.5 G/DL (14.2-18.0) L Hematocrit 27.1 % (42.0-52.0) L Mean Corpuscular Volume 81 FL (80-99) Mean Corpuscular Hemoglobin 25.3 PG (27.0-31.0) L Mean Corpuscular Hemoglobin Concent 31.2 G/DL (32.0-36.0) L Red Cell Distribution Width 17.2 % (11.6-14.8) H Platelet Count 375 K/UL (150-450) Mean Platelet Volume 5.3 FL (6.5-10.1) L Neutrophils (%) (Auto) 74.5 % (45.0-75.0) Lymphocytes (%) (Auto) 12.5 % (20.0-45.0) L Monocytes (%) (Auto) 6.6 % (1.0-10.0) Eosinophils (%) (Auto) 5.8 % (0.0-3.0) H Basophils (%) (Auto) 0.5 % (0.0-2.0) Sodium Level 139 MMOL/L (136-145) Potassium Level 4.2 MMOL/L (3.5-5.1) Chloride Level 105 MMOL/L (98-107) Carbon Dioxide Level 30 MMOL/L (21-32) Anion Gap 4 mmol/L (5-15) L Blood Urea Nitrogen 25 mg/dL (7-18) H Creatinine 0.5 MG/DL (0.55-1.30) L Estimat Glomerular Filtration Rate mL/min (>60) Glucose Level 79 MG/DL (74-106) Calcium Level 8.4 MG/DL (8.5-10.1) L Total Bilirubin 0.7 MG/DL (0.2-1.0) Aspartate Amino Transf (AST/SGOT) 31 U/L (15-37) Alanine Aminotransferase (ALT/SGPT) 8 U/L (12-78) L Alkaline Phosphatase 365 U/L (46-116) H Total Protein 6.7 G/DL (6.4-8.2) Albumin 1.0 G/DL (3.4-5.0) L Globulin 5.7 g/dL Albumin/Globulin Ratio 0.2 (1.0-2.7) L Lipase 273 U/L (73-393) Current Medications Medications (Trade) Dose Ordered Sig/Iram Route PRN Reason Start Time Stop Time Status Last Admin Dose Admin Acetaminophen (Tylenol) 650 mg DAILY GT 12/10/18 09:00 01/08/19 08:59 12/15/18 08:34 Acetaminophen (Tylenol) 650 mg Q4H PRN GT Mild Pain/Temp > 100.5 12/09/18 11:00 01/07/19 20:44 Amlodipine Besylate (Norvasc) 10 mg DAILY GT 12/09/18 09:00 01/08/19 08:59 12/15/18 08:39 Artificial Tears (Akwa-Tears) 2 drop Q4H PRN BOTH EYES DRY EYES 12/08/18 20:45 01/07/19 20:44 12/14/18 18:30 Ascorbic Acid (Vitamin C) 500 mg DAILY GT 12/09/18 09:00 01/08/19 08:59 12/15/18 08:37 Aspirin (ASA) 81 mg DAILY GT 12/09/18 09:00 01/08/19 08:59 12/15/18 08:36 Atorvastatin Calcium (Lipitor) 10 mg BEDTIME GT 12/08/18 21:00 01/07/19 20:59 12/14/18 20:52 Bisacodyl (Dulcolax) 10 mg DAILYPRN PRN RECTAL constipation 12/08/18 20:45 01/07/19 20:44 Docusate Sodium (Colace) 100 mg DAILY GT 12/10/18 09:00 01/08/19 08:59 12/15/18 08:34 Doxazosin Mesylate (Cardura) 1 mg QHS GT 12/08/18 21:00 01/07/19 20:59 12/14/18 20:51 Heparin Sodium (Porcine) (Heparin 5000 units/ml) 5,000 units EVERY 12 HOURS SUBQ 12/09/18 09:00 01/08/19 08:59 12/15/18 08:36 Isoniazid (Inh) 300 mg DAILY GT 12/09/18 09:00 01/08/19 08:59 12/15/18 08:39 Lansoprazole (Prevacid) 30 mg Q12HR GT 12/09/18 21:00 01/07/19 20:59 12/15/18 08:37 Levetiracetam (Keppra) 750 mg Q12HR GT 12/08/18 21:00 01/07/19 20:59 12/15/18 08:35 Magnesium Hydroxide (Mom) 30 ml DAILYPRN PRN GT constipation 12/08/18 20:45 01/07/19 20:44 Metoprolol Tartrate (Lopressor) 50 mg EVERY 12 HOURS GT 12/08/18 21:00 01/07/19 20:59 12/15/18 08:38 Multivitamins Therapeutic (Therapeutic Multivitamin) 1 ea DAILY ORAL 12/09/18 09:00 01/08/19 08:59 12/15/18 08:39 Pyridoxine HCl (Vitamin B6) 50 mg DAILY GT 12/10/18 09:00 01/08/19 10:29 12/15/18 08:36 Rifampin (Rifadin) 600 mg DAILY GT 12/09/18 10:30 01/08/19 10:29 12/15/18 08:37 Sodium Phosphate (Fleet's Sodium Phosl Enema) 133 ml QOD PRN RECTAL constipation 12/10/18 09:15 01/07/19 20:44 Zinc Sulfate (Zinc Sulfate) 220 mg DAILY GT 12/09/18 09:00 01/08/19 08:59 12/15/18 08:37 Rahul Shen MD December 15, 2018 13:14
--- NOTE | 2018-12-15 15:00 | NUR ---
NURSE NOTES: no any distress noted, vital signs stable, bed bath given, dressing changed, repositioned, continue monitoring.
[2018-12-15 16:00] VITALS: BP 123/66
--- NOTE | 2018-12-15 16:10 | Surgery Progress Note ---
Surgery Progress Note Subjective Additional Comments no acute events. exam stable. dressings changed. +BM. tolerating feeds. Objective Last 24 Hour Vital Signs Date Time Temp Pulse Resp B/P (MAP) Pulse Ox O2 Delivery O2 Flow Rate FiO2 12/15/18 16:00 40 12/15/18 16:00 Mechanical Ventilator 12/15/18 14:46 71 19 30 12/15/18 13:00 66 21 30 12/15/18 12:01 40 12/15/18 12:01 Mechanical Ventilator 12/15/18 12:00 68 12/15/18 12:00 98.3 68 21 110/58 (75) 100 12/15/18 11:22 68 18 30 12/15/18 09:05 75 19 30 12/15/18 09:04 99.0 12/15/18 08:39 85 139/68 12/15/18 08:38 85 139/68 12/15/18 08:01 99.0 85 23 139/68 (91) 100 12/15/18 08:00 Mechanical Ventilator 12/15/18 08:00 40 12/15/18 08:00 78 12/15/18 06:55 79 20 30 12/15/18 05:26 82 20 30 12/15/18 04:00 40 12/15/18 04:00 98.2 78 20 124/73 (90) 100 12/15/18 04:00 Mechanical Ventilator 12/15/18 04:00 70 12/15/18 02:51 73 21 30 12/15/18 00:43 77 18 30 12/15/18 00:00 Mechanical Ventilator 12/15/18 00:00 77 12/15/18 00:00 97.9 72 18 119/63 (81) 100 12/15/18 00:00 40 12/14/18 22:31 74 20 30 12/14/18 20:51 87 123/65 12/14/18 20:40 83 18 30 12/14/18 20:00 98.2 78 18 123/65 (84) 100 12/14/18 20:00 40 12/14/18 20:00 Mechanical Ventilator 12/14/18 20:00 79 12/14/18 18:40 77 21 30 12/14/18 17:02 76 21 30 I&O Intake and Output 12/14/18 12/15/18 19:00 07:00 Intake Total 1650 ml 1270 ml Output Total 850 ml 650 ml Balance 800 ml 620 ml Intake Free Water 380 ml 450 ml IV Total 550 ml 550 ml Tube Feeding 720 ml 270 ml Output Urine Total 850 ml 650 ml # Bowel Movements 6 7 Dressing: saturated Wound: other Drains: other Cardiovascular: RSR Respiratory: decreased breath sounds Abdomen: soft, present bowel sounds, other, non-distended Extremities: no cyanosis Laboratory Tests Test 12/15/18 03:20 White Blood Count 9.2 K/UL (4.8-10.8) Red Blood Count 3.34 M/UL (4.70-6.10) L Hemoglobin 8.5 G/DL (14.2-18.0) L Hematocrit 27.1 % (42.0-52.0) L Mean Corpuscular Volume 81 FL (80-99) Mean Corpuscular Hemoglobin 25.3 PG (27.0-31.0) L Mean Corpuscular Hemoglobin Concent 31.2 G/DL (32.0-36.0) L Red Cell Distribution Width 17.2 % (11.6-14.8) H Platelet Count 375 K/UL (150-450) Mean Platelet Volume 5.3 FL (6.5-10.1) L Neutrophils (%) (Auto) 74.5 % (45.0-75.0) Lymphocytes (%) (Auto) 12.5 % (20.0-45.0) L Monocytes (%) (Auto) 6.6 % (1.0-10.0) Eosinophils (%) (Auto) 5.8 % (0.0-3.0) H Basophils (%) (Auto) 0.5 % (0.0-2.0) Sodium Level 139 MMOL/L (136-145) Potassium Level 4.2 MMOL/L (3.5-5.1) Chloride Level 105 MMOL/L (98-107) Carbon Dioxide Level 30 MMOL/L (21-32) Anion Gap 4 mmol/L (5-15) L Blood Urea Nitrogen 25 mg/dL (7-18) H Creatinine 0.5 MG/DL (0.55-1.30) L Estimat Glomerular Filtration Rate mL/min (>60) Glucose Level 79 MG/DL (74-106) Calcium Level 8.4 MG/DL (8.5-10.1) L Total Bilirubin 0.7 MG/DL (0.2-1.0) Aspartate Amino Transf (AST/SGOT) 31 U/L (15-37) Alanine Aminotransferase (ALT/SGPT) 8 U/L (12-78) L Alkaline Phosphatase 365 U/L (46-116) H Total Protein 6.7 G/DL (6.4-8.2) Albumin 1.0 G/DL (3.4-5.0) L Globulin 5.7 g/dL Albumin/Globulin Ratio 0.2 (1.0-2.7) L Lipase 273 U/L (73-393) Plan Problems: (1) Decubitus ulcer Assessment & Plan: Pt presented on admission with multiple full thickness pressure injuries. Skin assessed under trach collar and no evidence of skin breakdown noted. Unstageable pressure injury with 100% yellow slough noted to L earlobe. Periwound skin tone is darker without erythema . No odor or exudate noted.( L00.3cm x (W)0.4cm. Hyperpigmentation from previous wound noted to R scapula noted and stable/ healing. 2x Full thickness pressure injuries noted to thoracic spine.(#1Proximally)Full thickness pressure injury with 95% yellow slough at base of wound with erythematous borders.Periwound skin tone is darker without induration or fluctuance.No odor or exudate noted(L)2.3cm x (W)1.7cm. (#2 inferior)Full thickness pressure injury with 60% loose fibrinous slough,10% necrosis,30% red granulation. Edges adherent to base of wound and are flat. Small amt seropurulent ,non-odorous exudate noted. Additionally,scattered partial thickness wounds noted periwound. R of thoracic spine Small full thickness pressure injury with 100% yellow slough at base of wound. Edges adherent and flat. No odor or exudate noted. (L) 0.6cm x (W)0.5cm. Full thickness pressure injury to lumbar spine. Base of wound with scattered slough ,10% necrosis. (+) maceration along borders. Darker skin tone without elevation in skin temp ,induration or fluctuance periwound.(L)4.5cm x (W)5cm. Full thickness pressure injury noted to R Iliac.Base of wound has 75% yellow slough,25% beefy red,(+) maceration along borders. Small amt non-odorous serous exudate noted.(L)4.8cm x (W)4cm.At base of R iliac pressure injury an area of darker skin tone that is indurated noted (L) 4.5cm x (W)6cm. Full thickness pressure injury L Iliac. 80% yellow/velazquez slough,20% erythematous. edges adherent and flat. Periwound withot erythema or induration. (L)3.3cm x (W)3.5cm. NO odor or exudate noted. Full thickness pressure injury noted to R trochanter with undermining. 80% yellow/velazquez slough,20% erythematous at base. Bone is palpable. (+) maceration along borders.Darker skin tone with induration periwound. No elevation in skin temp noted.Small amt non-odorous seropurulent exudate noted.(L)4.5cm x (W) 6.3cmx (D)2.8cm, Undermining 12-12 by 2.6cm @9o'clock. DTPI noted to R hip.Base of indurated and black in colour.(L)2cm x (W)5.7cm. Full thickness sacral pressure injury.25% yellow slough,75%erythematous.Edges adherent and flat. (L)8.7cm x (W)5.2cm x (W)2cm. In addition to sacral wound, periwound noted to have multiple small wounds that are pink and dry. Partial thickness pressure injury posterior upper R thigh.Base of wound moist viable.Edges loose and darker than is normal skin tone.Periwound without induration or elevation in skin temp.Small amt serosanguineous exudate noted (L) 1.5cm x (W)1.3cm. Full thickness pressure injury L trochanter.100% soft brown/black necrosis noted at base of wound. Erythematous borders. Small amt non-odorous brown exudate noted. Periwound indurated with darker skin tone. (L)4.5cm x (W)4.2cm. R heel boggy with non-blanchable erythema .Historical scar noted to R heel. DTPI L heel noted. Maroon discoloration with fluctuance centrally ,indurated borders noted.(L)3.5cm x (W)2cm. Tx.Plan: Cleanse wounds Thoracic spine,R and L of thoracic with Saline. Apply Therahoney.Apply Triad periwound. Cover each wound with Optifoam drsgs. Change every 3 days and prn. Cleanse wound R trochanter with Saline. Apply Therahoney. Apply Triad periwound. Cover with Optifoam drsg every 3 days and prn. Cleanse wound Lumbar spine with Saline. Apply Therahoney.Apply Triad paste periwound. Cover with Optifoam drsg every 3 days and prn. Cleanse wound L trochanter with Saline. Apply Therahoney.Apply Triad Paste periwound. Cover with Optifoam drsg every 3 days and prn. Cleanse wound posterior upper R thigh with saline.Apply Triad Paste .cover with Optifoam drsg .Change every 3 days and prn. Cleanse wounds R and L Iliac with Saline. Apply Therahoney.Apply Therahoney periwound. Cover with Optifoam drsg every 3 days and prn. Cleanse L earlobe with Saline. Apply Therahoney. Cover with Optifoam drsg. Change Daily and prn. Apply Cavilon Skin Barrier to R and L heels .Cover each heel with Optifoam drsgs. Change every 7 days and prn. Apply Cavilon Skin BArrier to Medial aspects of R and L knees. Cover each knee with Optifoam drsg. Change every 7 days and prn. Air Fluidized Mattress. Reposition at least every 2hours or as tolerated. Off-load heels with pillow. (2) Sepsis Assessment & Plan: On Abx CXR Monitor labs (3) Dehydration Assessment & Plan: On IV fluids okay to resume tube feeds (4) Respiratory distress Assessment & Plan: on vent via trach cont w/ breathing treatments (5) Abnormal LFTs Assessment & Plan: alk phos elevated trend for now * Nodular contour of the liver suggestive of cirrhosis. This has been previously described. No focal hepatic mass lesion appreciated sonographically. * Splenomegaly with the spleen measuring 15 .4 cm in length. Trace ascites also noted. Findings may indicate portal hypertension. * Status post cholecystectomy. No biliary ductal dilatation. * Simple appearing left renal cyst. * Left pleural effusion partially visualized. Zev Candelaria December 15, 2018 16:10
--- NOTE | 2018-12-15 19:25 | NUR ---
HAND-OFF: Report given to NADIR REEVES, no any distress at this time.
--- NOTE | 2018-12-15 19:26 | NUR ---
NURSE NOTES: Received bedside report from LLAA Saldivar.Patient stable,obtunded,SR on physician allergist immunologist,tolerated GT feeding well @ 30 ml/hr with Vital AF no residual,f/cath in place,running toward gravity,IV asymptomatic,intact on R f/arm G 22SL and L finger G 24 SL,bed secured,call light within a reach,will continue to monitor and follow POC
[2018-12-15 20:00] VITALS: BP 133/72
[2018-12-15] MEDS: Doxazosin 1mg Tab GT SCH (20:54)
[2018-12-16] VITALS: BP 115/59
--- NOTE | 2018-12-16 03:30 | Discharge Summary ---
DATE OF ADMISSION: 12/08/2018 DATE OF DISCHARGE: 12/14/2018 ADMISSION DIAGNOSES: 1. Sepsis. 2. Anemia. 3. Respiratory failure. 4. Stroke. 5. Seizure disorder. 6. History of pulmonary tuberculosis. 7. Anemia status post transfusion. DISCHARGE DIAGNOSES: 1. Sepsis. 2. Anemia. 3. Respiratory failure. 4. Stroke. 5. Seizure disorder. 6. History of pulmonary tuberculosis. 7. Anemia status post transfusion. HOSPITAL COURSE: The patient was admitted with complaints of sepsis secondary to pneumonia. He received broad-spectrum IV antibiotic therapy. ID, Pulmonary, and Cardiology consultations were obtained. The patient required transfusion. After transfusion, his hemoglobin remained relatively stable. On discharge, he completed all of his antibiotic therapy. He will be discharged back to the intermediate with close monitoring. DISCHARGE MEDICATIONS: Please see discharge medication list for discharge medications. DIET: G-tube feedings. ACTIVITIES: Ad-leslye. Jarrod Vásquez M.D. DR: CLARA JOB#: [id number] CC:
[2018-12-16 04:00] VITALS: BP 118/55
--- NOTE | 2018-12-16 07:00 | NUR ---
Received Patient on Vent settings ACVC RR 12, VT 500, FIO2 30%, PEEP +5. Patient has a Portex 7 tracheostomy tube, secured with trache ties. Bilateral rhonchi breath sounds heard throughout lung french. Suctioned moderate amounts of thick yellow singer secretions. Alarms are on and audible. Vent plugged into red outlet. Will continue to closely monitor throughout the day.
--- NOTE | 2018-12-16 07:07 | NUR ---
HAND-OFF: Report given to LALA Saldivar.patient stable.
[2018-12-16 08:00] VITALS: BP 119/57
--- NOTE | 2018-12-16 08:04 | General Progress Note ---
Assessment/Plan Problem List: (1) Aspiration pneumonia ICD Codes: J69.0 - Pneumonitis due to inhalation of food and vomit SNOMED: 320314452 (2) Hyperlipidemia ICD Codes: E78.5 - Hyperlipidemia, unspecified SNOMED: 28479332 (3) Dementia ICD Codes: F03.90 - Unspecified dementia without behavioral disturbance SNOMED: 09792510 (4) Sepsis ICD Codes: A41.9 - Sepsis, unspecified organism SNOMED: 65264086 (5) Encephalopathy ICD Codes: G93.40 - Encephalopathy, unspecified SNOMED: 20862258 (6) Respiratory distress ICD Codes: R06.03 - Acute respiratory distress SNOMED: 437604390 (7) Probable sepsis ICD Codes: A41.9 - Sepsis, unspecified organism SNOMED: 517720369 (8) Anemia ICD Codes: D64.9 - Anemia, unspecified SNOMED: 454787848 Status: stable, progressing Assessment/Plan: a/ sepsis pna pulm tb cva sz do anemia ?Cirrhosis p/ iv abx tb meds follow up cultures tranfuse as needed check stool ob vent support resp rx Subjective ROS Limited/Unobtainable: Yes Constitutional: Reports: malaise, weakness HEENT: Reports: no symptoms Cardiovascular: Reports: no symptoms Respiratory: Reports: cough Gastrointestinal/Abdominal: Reports: difficulty swallowing Genitourinary: Reports: no symptoms Neurologic/Psychiatric: Reports: seizure Endocrine: Reports: no symptoms Hematologic/Lymphatic: Reports: no symptoms Allergies: Coded Allergies: No Known Allergies (Unverified , 01/27/17) All Systems: reviewed and negative except above Subjective no events. stable on the vent. on iv abx. no szs. cultures neg so far. no bleeding tolerating feeds. no bed at snf yesterday. Objective Last 24 Hour Vital Signs Date Time Temp Pulse Resp B/P (MAP) Pulse Ox O2 Delivery O2 Flow Rate FiO2 12/16/18 07:06 69 18 30 12/16/18 05:30 74 20 30 12/16/18 04:00 Mechanical Ventilator 12/16/18 04:00 40 12/16/18 04:00 99.5 82 20 118/55 (76) 99 12/16/18 03:14 77 19 30 12/16/18 03:00 75 12/16/18 01:44 70 23 30 12/16/18 00:00 Mechanical Ventilator 12/16/18 00:00 98.6 77 22 115/59 (77) 99 12/15/18 23:38 74 12/15/18 23:30 72 20 30 12/15/18 21:21 70 22 30 12/15/18 20:55 79 139/85 12/15/18 20:00 98.9 79 21 133/72 (92) 100 12/15/18 20:00 Mechanical Ventilator 12/15/18 20:00 40 12/15/18 19:47 78 12/15/18 19:30 74 20 30 12/15/18 16:53 76 21 30 12/15/18 16:00 40 12/15/18 16:00 97.9 69 24 123/66 (85) 99 12/15/18 16:00 Mechanical Ventilator 12/15/18 16:00 73 12/15/18 14:46 71 19 30 12/15/18 13:00 66 21 30 12/15/18 12:01 40 12/15/18 12:01 Mechanical Ventilator 12/15/18 12:00 68 12/15/18 12:00 98.3 68 21 110/58 (75) 100 12/15/18 11:22 68 18 30 12/15/18 09:05 75 19 30 12/15/18 09:04 99.0 12/15/18 08:39 85 139/68 12/15/18 08:38 85 139/68 Intake and Output 12/15/18 12/16/18 19:00 07:00 Intake Total 810 ml 830 ml Output Total 450 ml 1000 ml Balance 360 ml -170 ml Intake Free Water 450 ml 470 ml Tube Feeding 360 ml 360 ml Output Urine Total 450 ml 1000 ml # Bowel Movements 7 Height (Feet): 5 Height (Inches): 7.00 Weight (Pounds): 118 Objective General Appearance: WD/WN, lethargic, confused, cachetic, thin Neck: supple Cardiovascular: normal peripheral pulses, normal rate, regular rhythm Respiratory/Chest: chest wall non-tender, lungs clear, normal breath sounds Abdomen: normal bowel sounds, non tender, soft, no organomegaly Edema: no edema noted Arm (L), no edema noted Arm (R), no edema noted Leg (L), no edema noted Leg (R), no edema noted Pedal (L), no edema noted Pedal (R), no edema noted Generalized Neurologic: unresponsive, aphasia Jarrod Vásquez MD December 16, 2018 08:04
--- NOTE | 2018-12-16 08:10 | NUR ---
NURSE NOTES: received pt in the bed, obtunded, vent dependent, vital signs stable, no co pain, no SOB, skin warm and dry to touch, multiple decub, dressing dry and intact, tolerate GT feeding well, Manzo catheter, contracted, bed in low position, HOB elevated.
[2018-12-16] MEDS: levETIRAcetam 500mg/5ml Liquid GT SCH (08:47)
[2018-12-16] MEDS: Acetaminophen 650mg/20.3ml GT SCH (08:47)
[2018-12-16] MEDS: Docusate 100mg/10ml Liq GT SCH (08:47)
[2018-12-16] MEDS: Zinc Sulfate 220mg cap GT SCH (08:49)
[2018-12-16] MEDS: Pyridoxine 50mg tab GT SCH (08:49)
[2018-12-16] MEDS: Aspirin Baby 81mg GT SCH (08:49)
[2018-12-16] MEDS: Multivitamin w/Minerals tab ORAL SCH (08:49)
[2018-12-16] MEDS: Heparin 5000 units/ml inj SUBQ SCH (08:49)
[2018-12-16] MEDS: Isoniazid 300mg tab GT SCH (08:50)
[2018-12-16] MEDS: Ascorbic Acid 500mg tab GT SCH (08:50)
[2018-12-16] MEDS: Metoprolol Tartrate 50mg tab GT SCH (08:50)
[2018-12-16 09:11] LABS: BASOPHILS % (AUTO) 0.7 % (0.0-2.0); EOSINOPHILS % (AUTO) 4.1 % (0.0-3.0); HEMATOCRIT 27.4 % (42.0-52.0); HEMOGLOBIN 8.5 G/DL (14.2-18.0); LYMPHOCYTES % (AUTO) 9.9 % (20.0-45.0); MEAN CORPUSCULAR VOLUME 81 FL (80-99); MONOCYTES % (AUTO) 8.1 % (1.0-10.0); NEUTROPHILS % (AUTO) 77.3 % (45.0-75.0); PLATELET COUNT 349 K/UL (150-450); RED CELL DISTRIBUTION WIDTH 17.2 % (11.6-14.8)
[2018-12-16 09:34] LABS: ALANINE AMINOTRANSFERASE 6 U/L (12-78); ALBUMIN/GLOBULIN RATIO 0.2 (1.0-2.7); ALKALINE PHOSPHATASE 386 U/L (46-116); ANION GAP 6 mmol/L (5-15); ASPARTATE AMINO TRANSFERASE 30 U/L (15-37); BILIRUBIN,TOTAL 0.6 MG/DL (0.2-1.0); BLOOD UREA NITROGEN 35 mg/dL (7-18); CALCIUM 8.6 MG/DL (8.5-10.1); CARBON DIOXIDE 29 MMOL/L (21-32); CHLORIDE 106 MMOL/L (98-107); CREATININE 0.6 MG/DL (0.55-1.30); POTASSIUM 4.2 MMOL/L (3.5-5.1); SODIUM 141 MMOL/L (136-145)
--- NOTE | 2018-12-16 10:19 | NUR ---
*-* INSURANCE *-* UPDATED CLINICALS HAVE BEEN FAXED TO: [facility] P:[phone] F:[phone] Addendum: 12/16/18 at 1023 by JORDI EASTON CM + DISCHARGE SUMMARY
--- NOTE | 2018-12-16 11:03 | Infectious Diseases Prog Note ---
"Assessment/Plan Assessment/Plan antibiotics : isoniazid, rifampin, pyridoxine A 1. pseudomonas | stenotrophomonas pneumonia s/p rx 2. pulmonary tuberculosis 3. respiratory failure 4. 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 continue isoniazid, rifampin, pyridoxine 2. will follow up cultures Subjective ROS Limited/Unobtainable: Yes Allergies: Coded Allergies: No Known Allergies (Unverified , 01/27/17) Objective Vital Signs Last 24 Hour Vital Signs Date Time Temp Pulse Resp B/P (MAP) Pulse Ox O2 Delivery O2 Flow Rate FiO2 12/16/18 10:47 70 21 30 12/16/18 09:17 99.7 12/16/18 08:50 72 119/57 12/16/18 08:50 72 119/57 12/16/18 08:36 72 23 30 12/16/18 08:00 Mechanical Ventilator 12/16/18 08:00 99.7 84 23 119/57 (77) 99 12/16/18 08:00 40 12/16/18 08:00 84 12/16/18 07:06 69 18 30 12/16/18 05:30 74 20 30 12/16/18 04:00 Mechanical Ventilator 12/16/18 04:00 40 12/16/18 04:00 99.5 82 20 118/55 (76) 99 12/16/18 03:14 77 19 30 12/16/18 03:00 75 12/16/18 01:44 70 23 30 12/16/18 00:00 Mechanical Ventilator 12/16/18 00:00 98.6 77 22 115/59 (77) 99 12/15/18 23:38 74 12/15/18 23:30 72 20 30 12/15/18 21:21 70 22 30 12/15/18 20:55 79 139/85 12/15/18 20:00 98.9 79 21 133/72 (92) 100 12/15/18 20:00 Mechanical Ventilator 12/15/18 20:00 40 12/15/18 19:47 78 12/15/18 19:30 74 20 30 12/15/18 16:53 76 21 30 12/15/18 16:00 40 12/15/18 16:00 97.9 69 24 123/66 (85) 99 12/15/18 16:00 Mechanical Ventilator 12/15/18 16:00 73 12/15/18 14:46 71 19 30 12/15/18 13:00 66 21 30 12/15/18 12:01 40 12/15/18 12:01 Mechanical Ventilator 12/15/18 12:00 68 12/15/18 12:00 98.3 68 21 110/58 (75) 100 12/15/18 11:22 68 18 30 Height (Feet): 5 Height (Inches): 7.00 Weight (Pounds): 118 HEENT: status post trach Respiratory/Chest: lungs clear Cardiovascular: normal rate, regular rhythm, no gallop/murmur Abdomen: soft, non tender, other - GT Extremities: no edema Laboratory Tests Test 12/16/18 08:55 White Blood Count 11.0 K/UL (4.8-10.8) H Red Blood Count 3.40 M/UL (4.70-6.10) L Hemoglobin 8.5 G/DL (14.2-18.0) L Hematocrit 27.4 % (42.0-52.0) L Mean Corpuscular Volume 81 FL (80-99) Mean Corpuscular Hemoglobin 25.1 PG (27.0-31.0) L Mean Corpuscular Hemoglobin Concent 31.1 G/DL (32.0-36.0) L Red Cell Distribution Width 17.2 % (11.6-14.8) H Platelet Count 349 K/UL (150-450) Mean Platelet Volume 5.4 FL (6.5-10.1) L Neutrophils (%) (Auto) 77.3 % (45.0-75.0) H Lymphocytes (%) (Auto) 9.9 % (20.0-45.0) L Monocytes (%) (Auto) 8.1 % (1.0-10.0) Eosinophils (%) (Auto) 4.1 % (0.0-3.0) H Basophils (%) (Auto) 0.7 % (0.0-2.0) Sodium Level 141 MMOL/L (136-145) Potassium Level 4.2 MMOL/L (3.5-5.1) Chloride Level 106 MMOL/L (98-107) Carbon Dioxide Level 29 MMOL/L (21-32) Anion Gap 6 mmol/L (5-15) Blood Urea Nitrogen 35 mg/dL (7-18) H Creatinine 0.6 MG/DL (0.55-1.30) Estimat Glomerular Filtration Rate mL/min (>60) Glucose Level 102 MG/DL (74-106) Calcium Level 8.6 MG/DL (8.5-10.1) Total Bilirubin 0.6 MG/DL (0.2-1.0) Aspartate Amino Transf (AST/SGOT) 30 U/L (15-37) Alanine Aminotransferase (ALT/SGPT) 6 U/L (12-78) L Alkaline Phosphatase 386 U/L (46-116) H Total Protein 6.7 G/DL (6.4-8.2) Albumin 1.0 G/DL (3.4-5.0) L Globulin 5.7 g/dL Albumin/Globulin Ratio 0.2 (1.0-2.7) L Current Medications Medications (Trade) Dose Ordered Sig/Iram Route PRN Reason Start Time Stop Time Status Last Admin Dose Admin Acetaminophen (Tylenol) 650 mg DAILY GT 12/10/18 09:00 01/08/19 08:59 12/16/18 08:47 Acetaminophen (Tylenol) 650 mg Q4H PRN GT Mild Pain/Temp > 100.5 12/09/18 11:00 01/07/19 20:44 Amlodipine Besylate (Norvasc) 10 mg DAILY GT 12/09/18 09:00 01/08/19 08:59 12/16/18 08:50 Artificial Tears (Akwa-Tears) 2 drop Q4H PRN BOTH EYES DRY EYES 12/08/18 20:45 01/07/19 20:44 12/14/18 18:30 Ascorbic Acid (Vitamin C) 500 mg DAILY GT 12/09/18 09:00 01/08/19 08:59 12/16/18 08:50 Aspirin (ASA) 81 mg DAILY GT 12/09/18 09:00 01/08/19 08:59 12/16/18 08:49 Atorvastatin Calcium (Lipitor) 10 mg BEDTIME GT 12/08/18 21:00 01/07/19 20:59 12/15/18 20:55 Bisacodyl (Dulcolax) 10 mg DAILYPRN PRN RECTAL constipation 12/08/18 20:45 01/07/19 20:44 Docusate Sodium (Colace) 100 mg DAILY GT 12/10/18 09:00 01/08/19 08:59 12/16/18 08:47 Doxazosin Mesylate (Cardura) 1 mg QHS GT 12/08/18 21:00 01/07/19 20:59 12/15/18 20:54 Heparin Sodium (Porcine) (Heparin 5000 units/ml) 5,000 units EVERY 12 HOURS SUBQ 12/09/18 09:00 01/08/19 08:59 12/16/18 08:49 Isoniazid (Inh) 300 mg DAILY GT 12/09/18 09:00 01/08/19 08:59 12/16/18 08:50 Lansoprazole (Prevacid) 30 mg Q12HR GT 12/09/18 21:00 01/07/19 20:59 12/16/18 08:49 Levetiracetam (Keppra) 750 mg Q12HR GT 12/08/18 21:00 01/07/19 20:59 12/16/18 08:47 Magnesium Hydroxide (Mom) 30 ml DAILYPRN PRN GT constipation 12/08/18 20:45 01/07/19 20:44 Metoprolol Tartrate (Lopressor) 50 mg EVERY 12 HOURS GT 12/08/18 21:00 01/07/19 20:59 12/16/18 08:50 Multivitamins Therapeutic (Therapeutic Multivitamin) 1 ea DAILY ORAL 12/09/18 09:00 01/08/19 08:59 12/16/18 08:49 Pyridoxine HCl (Vitamin B6) 50 mg DAILY GT 12/10/18 09:00 01/08/19 10:29 12/16/18 08:49 Rifampin (Rifadin) 600 mg DAILY GT 12/09/18 10:30 01/08/19 10:29 12/16/18 08:50 Sodium Phosphate (Fleet's Sodium Phosl Enema) 133 ml QOD PRN RECTAL constipation 12/10/18 09:15 01/07/19 20:44 Zinc Sulfate (Zinc Sulfate) 220 mg DAILY GT 12/09/18 09:00 01/08/19 08:59 12/16/18 08:49 Sergio Urban MD December 16, 2018 11:03"
--- NOTE | 2018-12-16 11:32 | NUR ---
Social Service Note [facility]. Pending public health clearance for dc back to facility. No SW interventions indicated at this time. Will be available as needed.
[2018-12-16 12:00] VITALS: BP 112/57
--- NOTE | 2018-12-16 14:45 | Pulmonology Progress Note ---
Assessment/Plan Assessment/Plan ASSESSMENT: history of stroke, respiratory failure, hypernatremia, acute on chronic renal failure, chronic encephalopathy, seizure disorder, pulmonary tuberculosis, and anemia possible sepsis, pneumonia, MDR PLAN care noted and reviewed IV antibiotics reviewed respiratory care reviewed Ventilatory support full on AC no wean planned SNF meds noted supportive care as is monitor electrolytes suction and monitor monitor imaging and labs support as needed oxygen therapy noted prognosis guarded; consider DNR impression, plan, and exam edited and reviewed in detail care discussed with RN Subjective ROS Limited/Unobtainable: Yes Allergies: Coded Allergies: No Known Allergies (Unverified , 01/27/17) Subjective care noted on vent bed bound reviewed care reviewed cultures Objective Last 24 Hour Vital Signs Date Time Temp Pulse Resp B/P (MAP) Pulse Ox O2 Delivery O2 Flow Rate FiO2 12/16/18 12:48 74 17 30 12/16/18 12:00 40 12/16/18 12:00 98.5 66 22 112/57 (75) 100 12/16/18 12:00 92 12/16/18 12:00 Mechanical Ventilator 12/16/18 10:47 70 21 30 12/16/18 09:17 99.7 12/16/18 08:50 72 119/57 12/16/18 08:50 72 119/57 12/16/18 08:36 72 23 30 12/16/18 08:00 Mechanical Ventilator 12/16/18 08:00 99.7 84 23 119/57 (77) 99 12/16/18 08:00 40 12/16/18 08:00 84 12/16/18 07:06 69 18 30 12/16/18 05:30 74 20 30 12/16/18 04:00 Mechanical Ventilator 12/16/18 04:00 40 12/16/18 04:00 99.5 82 20 118/55 (76) 99 12/16/18 03:14 77 19 30 12/16/18 03:00 75 12/16/18 01:44 70 23 30 12/16/18 00:00 Mechanical Ventilator 12/16/18 00:00 98.6 77 22 115/59 (77) 99 12/15/18 23:38 74 12/15/18 23:30 72 20 30 12/15/18 21:21 70 22 30 12/15/18 20:55 79 139/85 12/15/18 20:00 98.9 79 21 133/72 (92) 100 12/15/18 20:00 Mechanical Ventilator 12/15/18 20:00 40 12/15/18 19:47 78 12/15/18 19:30 74 20 30 12/15/18 16:53 76 21 30 12/15/18 16:00 40 12/15/18 16:00 97.9 69 24 123/66 (85) 99 12/15/18 16:00 Mechanical Ventilator 12/15/18 16:00 73 12/15/18 14:46 71 19 30 Intake and Output 12/15/18 12/16/18 19:00 07:00 Intake Total 810 ml 830 ml Output Total 450 ml 1000 ml Balance 360 ml -170 ml Intake Free Water 450 ml 470 ml Tube Feeding 360 ml 360 ml Output Urine Total 450 ml 1000 ml # Bowel Movements 7 Objective on vent chronically ill trach clear breath sounds bilaterally without rhonchi or wheeze [id number] without MRG NABS nontender no HSM; Gt no CCE; contractures nonfocal Laboratory Tests 12/16/18 08:55: White Blood Count 11.0H, Red Blood Count 3.40L, Hemoglobin 8.5L, Hematocrit 27.4L, Mean Corpuscular Volume 81, Mean Corpuscular Hemoglobin 25.1L, Mean Corpuscular Hemoglobin Concent 31.1L, Red Cell Distribution Width 17.2H, Platelet Count 349, Mean Platelet Volume 5.4L, Neutrophils (%) (Auto) 77.3H, Lymphocytes (%) (Auto) 9.9L, Monocytes (%) (Auto) 8.1, Eosinophils (%) (Auto) 4.1H, Basophils (%) (Auto) 0.7, Sodium Level 141, Potassium Level 4.2, Chloride Level 106, Carbon Dioxide Level 29, Anion Gap 6, Blood Urea Nitrogen 35H, Creatinine 0.6, Estimat Glomerular Filtration Rate , Glucose Level 102, Calcium Level 8.6, Total Bilirubin 0.6, Aspartate Amino Transf (AST/SGOT) 30, Alanine Aminotransferase (ALT/SGPT) 6L, Alkaline Phosphatase 386H, Total Protein 6.7, Albumin 1.0L, Globulin 5.7, Albumin/Globulin Ratio 0.2L Current Medications Medications (Trade) Dose Ordered Sig/Iram Route PRN Reason Start Time Stop Time Status Last Admin Dose Admin Acetaminophen (Tylenol) 650 mg DAILY GT 12/10/18 09:00 01/08/19 08:59 12/16/18 08:47 Acetaminophen (Tylenol) 650 mg Q4H PRN GT Mild Pain/Temp > 100.5 12/09/18 11:00 01/07/19 20:44 Amlodipine Besylate (Norvasc) 10 mg DAILY GT 12/09/18 09:00 01/08/19 08:59 12/16/18 08:50 Artificial Tears (Akwa-Tears) 2 drop Q4H PRN BOTH EYES DRY EYES 12/08/18 20:45 01/07/19 20:44 12/14/18 18:30 Ascorbic Acid (Vitamin C) 500 mg DAILY GT 12/09/18 09:00 01/08/19 08:59 12/16/18 08:50 Aspirin (ASA) 81 mg DAILY GT 12/09/18 09:00 01/08/19 08:59 12/16/18 08:49 Atorvastatin Calcium (Lipitor) 10 mg BEDTIME GT 12/08/18 21:00 01/07/19 20:59 12/15/18 20:55 Bisacodyl (Dulcolax) 10 mg DAILYPRN PRN RECTAL constipation 12/08/18 20:45 01/07/19 20:44 Docusate Sodium (Colace) 100 mg DAILY GT 12/10/18 09:00 01/08/19 08:59 12/16/18 08:47 Doxazosin Mesylate (Cardura) 1 mg QHS GT 12/08/18 21:00 01/07/19 20:59 12/15/18 20:54 Heparin Sodium (Porcine) (Heparin 5000 units/ml) 5,000 units EVERY 12 HOURS SUBQ 12/09/18 09:00 01/08/19 08:59 12/16/18 08:49 Isoniazid (Inh) 300 mg DAILY GT 12/09/18 09:00 01/08/19 08:59 12/16/18 08:50 Lansoprazole (Prevacid) 30 mg Q12HR GT 12/09/18 21:00 01/07/19 20:59 12/16/18 08:49 Levetiracetam (Keppra) 750 mg Q12HR GT 12/08/18 21:00 01/07/19 20:59 12/16/18 08:47 Magnesium Hydroxide (Mom) 30 ml DAILYPRN PRN GT constipation 12/08/18 20:45 01/07/19 20:44 Metoprolol Tartrate (Lopressor) 50 mg EVERY 12 HOURS GT 12/08/18 21:00 01/07/19 20:59 12/16/18 08:50 Multivitamins Therapeutic (Therapeutic Multivitamin) 1 ea DAILY ORAL 12/09/18 09:00 01/08/19 08:59 12/16/18 08:49 Pyridoxine HCl (Vitamin B6) 50 mg DAILY GT 12/10/18 09:00 01/08/19 10:29 12/16/18 08:49 Rifampin (Rifadin) 600 mg DAILY GT 12/09/18 10:30 01/08/19 10:29 12/16/18 08:50 Sodium Phosphate (Fleet's Sodium Phosl Enema) 133 ml QOD PRN RECTAL constipation 12/10/18 09:15 01/07/19 20:44 Zinc Sulfate (Zinc Sulfate) 220 mg DAILY GT 12/09/18 09:00 01/08/19 08:59 12/16/18 08:49 Nakul Cisse MD December 16, 2018 14:45
--- NOTE | 2018-12-16 15:40 | Surgery Progress Note ---
Surgery Progress Note Subjective Additional Comments stable. no acute events. dressing changes going well Objective Last 24 Hour Vital Signs Date Time Temp Pulse Resp B/P (MAP) Pulse Ox O2 Delivery O2 Flow Rate FiO2 12/16/18 15:13 69 18 30 12/16/18 12:48 74 17 30 12/16/18 12:00 40 12/16/18 12:00 98.5 66 22 112/57 (75) 100 12/16/18 12:00 92 12/16/18 12:00 Mechanical Ventilator 12/16/18 10:47 70 21 30 12/16/18 09:17 99.7 12/16/18 08:50 72 119/57 12/16/18 08:50 72 119/57 12/16/18 08:36 72 23 30 12/16/18 08:00 Mechanical Ventilator 12/16/18 08:00 99.7 84 23 119/57 (77) 99 12/16/18 08:00 40 12/16/18 08:00 84 12/16/18 07:06 69 18 30 12/16/18 05:30 74 20 30 12/16/18 04:00 Mechanical Ventilator 12/16/18 04:00 40 12/16/18 04:00 99.5 82 20 118/55 (76) 99 12/16/18 03:14 77 19 30 12/16/18 03:00 75 12/16/18 01:44 70 23 30 12/16/18 00:00 Mechanical Ventilator 12/16/18 00:00 98.6 77 22 115/59 (77) 99 12/15/18 23:38 74 12/15/18 23:30 72 20 30 12/15/18 21:21 70 22 30 12/15/18 20:55 79 139/85 12/15/18 20:00 98.9 79 21 133/72 (92) 100 12/15/18 20:00 Mechanical Ventilator 12/15/18 20:00 40 12/15/18 19:47 78 12/15/18 19:30 74 20 30 12/15/18 16:53 76 21 30 12/15/18 16:00 40 12/15/18 16:00 97.9 69 24 123/66 (85) 99 12/15/18 16:00 Mechanical Ventilator 12/15/18 16:00 73 I&O Intake and Output 12/15/18 12/16/18 19:00 07:00 Intake Total 810 ml 830 ml Output Total 450 ml 1000 ml Balance 360 ml -170 ml Intake Free Water 450 ml 470 ml Tube Feeding 360 ml 360 ml Output Urine Total 450 ml 1000 ml # Bowel Movements 7 Dressing: saturated Wound: other Drains: other Cardiovascular: RSR Respiratory: decreased breath sounds Abdomen: soft, present bowel sounds, non-distended Extremities: edema, no cyanosis Laboratory Tests Test 12/16/18 08:55 White Blood Count 11.0 K/UL (4.8-10.8) H Red Blood Count 3.40 M/UL (4.70-6.10) L Hemoglobin 8.5 G/DL (14.2-18.0) L Hematocrit 27.4 % (42.0-52.0) L Mean Corpuscular Volume 81 FL (80-99) Mean Corpuscular Hemoglobin 25.1 PG (27.0-31.0) L Mean Corpuscular Hemoglobin Concent 31.1 G/DL (32.0-36.0) L Red Cell Distribution Width 17.2 % (11.6-14.8) H Platelet Count 349 K/UL (150-450) Mean Platelet Volume 5.4 FL (6.5-10.1) L Neutrophils (%) (Auto) 77.3 % (45.0-75.0) H Lymphocytes (%) (Auto) 9.9 % (20.0-45.0) L Monocytes (%) (Auto) 8.1 % (1.0-10.0) Eosinophils (%) (Auto) 4.1 % (0.0-3.0) H Basophils (%) (Auto) 0.7 % (0.0-2.0) Sodium Level 141 MMOL/L (136-145) Potassium Level 4.2 MMOL/L (3.5-5.1) Chloride Level 106 MMOL/L (98-107) Carbon Dioxide Level 29 MMOL/L (21-32) Anion Gap 6 mmol/L (5-15) Blood Urea Nitrogen 35 mg/dL (7-18) H Creatinine 0.6 MG/DL (0.55-1.30) Estimat Glomerular Filtration Rate mL/min (>60) Glucose Level 102 MG/DL (74-106) Calcium Level 8.6 MG/DL (8.5-10.1) Total Bilirubin 0.6 MG/DL (0.2-1.0) Aspartate Amino Transf (AST/SGOT) 30 U/L (15-37) Alanine Aminotransferase (ALT/SGPT) 6 U/L (12-78) L Alkaline Phosphatase 386 U/L (46-116) H Total Protein 6.7 G/DL (6.4-8.2) Albumin 1.0 G/DL (3.4-5.0) L Globulin 5.7 g/dL Albumin/Globulin Ratio 0.2 (1.0-2.7) L Plan Problems: (1) Decubitus ulcer Assessment & Plan: Pt presented on admission with multiple full thickness pressure injuries. Skin assessed under trach collar and no evidence of skin breakdown noted. Unstageable pressure injury with 100% yellow slough noted to L earlobe. Periwound skin tone is darker without erythema . No odor or exudate noted.( L00.3cm x (W)0.4cm. Hyperpigmentation from previous wound noted to R scapula noted and stable/ healing. 2x Full thickness pressure injuries noted to thoracic spine.(#1Proximally)Full thickness pressure injury with 95% yellow slough at base of wound with erythematous borders.Periwound skin tone is darker without induration or fluctuance.No odor or exudate noted(L)2.3cm x (W)1.7cm. (#2 inferior)Full thickness pressure injury with 60% loose fibrinous slough,10% necrosis,30% red granulation. Edges adherent to base of wound and are flat. Small amt seropurulent ,non-odorous exudate noted. Additionally,scattered partial thickness wounds noted periwound. R of thoracic spine Small full thickness pressure injury with 100% yellow slough at base of wound. Edges adherent and flat. No odor or exudate noted. (L) 0.6cm x (W)0.5cm. Full thickness pressure injury to lumbar spine. Base of wound with scattered slough ,10% necrosis. (+) maceration along borders. Darker skin tone without elevation in skin temp ,induration or fluctuance periwound.(L)4.5cm x (W)5cm. Full thickness pressure injury noted to R Iliac.Base of wound has 75% yellow slough,25% beefy red,(+) maceration along borders. Small amt non-odorous serous exudate noted.(L)4.8cm x (W)4cm.At base of R iliac pressure injury an area of darker skin tone that is indurated noted (L) 4.5cm x (W)6cm. Full thickness pressure injury L Iliac. 80% yellow/velazquez slough,20% erythematous. edges adherent and flat. Periwound withot erythema or induration. (L)3.3cm x (W)3.5cm. NO odor or exudate noted. Full thickness pressure injury noted to R trochanter with undermining. 80% yellow/velazquez slough,20% erythematous at base. Bone is palpable. (+) maceration along borders.Darker skin tone with induration periwound. No elevation in skin temp noted.Small amt non-odorous seropurulent exudate noted.(L)4.5cm x (W) 6.3cmx (D)2.8cm, Undermining 12-12 by 2.6cm @9o'clock. DTPI noted to R hip.Base of indurated and black in colour.(L)2cm x (W)5.7cm. Full thickness sacral pressure injury.25% yellow slough,75%erythematous.Edges adherent and flat. (L)8.7cm x (W)5.2cm x (W)2cm. In addition to sacral wound, periwound noted to have multiple small wounds that are pink and dry. Partial thickness pressure injury posterior upper R thigh.Base of wound moist viable.Edges loose and darker than is normal skin tone.Periwound without induration or elevation in skin temp.Small amt serosanguineous exudate noted (L) 1.5cm x (W)1.3cm. Full thickness pressure injury L trochanter.100% soft brown/black necrosis noted at base of wound. Erythematous borders. Small amt non-odorous brown exudate noted. Periwound indurated with darker skin tone. (L)4.5cm x (W)4.2cm. R heel boggy with non-blanchable erythema .Historical scar noted to R heel. DTPI L heel noted. Maroon discoloration with fluctuance centrally ,indurated borders noted.(L)3.5cm x (W)2cm. Tx.Plan: Cleanse wounds Thoracic spine,R and L of thoracic with Saline. Apply Therahoney.Apply Triad periwound. Cover each wound with Optifoam drsgs. Change every 3 days and prn. Cleanse wound R trochanter with Saline. Apply Therahoney. Apply Triad periwound. Cover with Optifoam drsg every 3 days and prn. Cleanse wound Lumbar spine with Saline. Apply Therahoney.Apply Triad paste periwound. Cover with Optifoam drsg every 3 days and prn. Cleanse wound L trochanter with Saline. Apply Therahoney.Apply Triad Paste periwound. Cover with Optifoam drsg every 3 days and prn. Cleanse wound posterior upper R thigh with saline.Apply Triad Paste .cover with Optifoam drsg .Change every 3 days and prn. Cleanse wounds R and L Iliac with Saline. Apply Therahoney.Apply Therahoney periwound. Cover with Optifoam drsg every 3 days and prn. Cleanse L earlobe with Saline. Apply Therahoney. Cover with Optifoam drsg. Change Daily and prn. Apply Cavilon Skin Barrier to R and L heels .Cover each heel with Optifoam drsgs. Change every 7 days and prn. Apply Cavilon Skin BArrier to Medial aspects of R and L knees. Cover each knee with Optifoam drsg. Change every 7 days and prn. Air Fluidized Mattress. Reposition at least every 2hours or as tolerated. Off-load heels with pillow. (2) Sepsis Assessment & Plan: On Abx CXR Monitor labs (3) Dehydration Assessment & Plan: On IV fluids okay to resume tube feeds DAILY ESTIMATED NEEDS: Needs based on Underweight, TF FEATHER EDGER, Critical care, wounds/49.5kg 30-40 kcals/kg 0731-7355 total kcals 1.5-2 g protein/kg 74-99 g total protein 25-30 mL/kg 0957-2630 total fluid mLs NUTRITION DIAGNOSIS: 1) Swallowing difficulty r/t dysphagia, respiratory status as evidenced by pt is PEG dep, trach/vent dep. . 2) Increased kcal/prot needs R/T underweight status and wound healing as evidenced by low BMI under guidelines, noted w/ mod-severe generalized wasting, pt w/ multiple advanced wounds, see WC eval. CURRENT TF: Vital AF 1.2 @30ml /hr x20 hrs ENTERAL NUTRITION RECOMMENDATIONS: Vital AF 1.2 @ 70ml/hr x20 hrs as able to provide 1400ml, 1680kcal, 105g prot, 809ml free water - As able rec to increase by 5ml/hr q4-6 hrs to goal - Meets 100% est kcal and protein needs. - HOB over 30 degrees/ water flush per MD ----- ADDITIONAL RECOMMENDATIONS: 1) Via GT add YOVANI w/ 4-6oz fluid BID for wound care 2) RECALIBRATE BED SCALE FOR ACCURATE CBW (bed scale reads in error) + weekly wts given underweight status 3) Check lytes daily, replete as needed 4) Monitor BGs closely, need for SSI (4) Respiratory distress Assessment & Plan: on vent via trach cont w/ breathing treatments (5) Abnormal LFTs Assessment & Plan: alk phos elevated trend for now * Nodular contour of the liver suggestive of cirrhosis. This has been previously described. No focal hepatic mass lesion appreciated sonographically. * Splenomegaly with the spleen measuring 15 .4 cm in length. Trace ascites also noted. Findings may indicate portal hypertension. * Status post cholecystectomy. No biliary ductal dilatation. * Simple appearing left renal cyst. * Left pleural effusion partially visualized. Zev Candelaria December 16, 2018 15:40
--- NOTE | 2018-12-16 15:57 | NUR ---
NURSE NOTES: pt discharge to [facility] as ordered by ambulance, condition stable, left massage for family by rifle case repairer Padma, report given to CORTEZ REEVES.
[2018-12-16] MEDS ORDERED: NS 275ml ONE (16:29)
== END 2018-12-16 16:30 | DRG 870 ==
LOC: EDBD 17:21 → EDBEDREQ 17:32 → EMR 17:45 → 2W 18:05 → EDBEDREQ 18:53 → 2W 22:10
PROC: 5A1955Z Respiratory Ventilation, Greater than 96 Consecutive Hours (ICD-10-PCS; principal; 2018-12-08)
DX: A41.9 Sepsis, unspecified organism (principal); J69.0 Pneumonitis due to inhalation of food and vomit; J15.1 Pneumonia due to Pseudomonas; E87.0 Hyperosmolality and hypernatremia; J96.10 Chronic respiratory failure, unspecified whether with hypoxia or hypercapnia; N17.9 Acute kidney failure, unspecified; G93.40 Encephalopathy, unspecified; Z93.0 Tracheostomy status; Z93.1 Gastrostomy status; G40.909 Epilepsy, unspecified, not intractable, without status epilepticus; Z86.73 Personal history of transient ischemic attack (TIA), and cerebral infarction without residual deficits; Z86.11 Personal history of tuberculosis; E86.0 Dehydration; N18.9 Chronic kidney disease, unspecified; D64.9 Anemia, unspecified; F03.90 Unspecified dementia, unspecified severity, without behavioral disturbance, psychotic disturbance, mood disturbance, and anxiety; L89.159 Pressure ulcer of sacral region, unspecified stage
CPT/HCPCS: 36415; 71045; 76700; 80053; 80202; 81003; 82150; 82270; 82550; 82553; 83605; 83690; 83735; 83880; 84484; 85007; 85025; 85610; 85730; 86850; 86900; 86901; 86920; 87040; 87070; 87081; 87181; 87205; 93005; 94002; 94003; 94640; 94664; 96361; 96365; 99285; J8499

== ENCOUNTER 2019-01-22 21:17 | Inpatient (IN) | payer MEDICARE, OTHER ==
[~2019-01-22] VITALS: Ht 165.1 cm; Wt 57.2 kg
--- NOTE | 2019-01-22 21:24 | Emergency Room Report ---
History of Present Illness General Chief Complaint: General Complaint Source: Medical Record, EMS Present Illness HPI This is a 73-year-old male with multiple medical problems including vent dependent respiratory failure, feeding tube, seizure, CVA. He presents with chief complaint of altered mental status. Per EMS, family said he is more lethargic than usual. Unable any other history for this patient. There is no complaint of fever chills but no evidence of any nausea vomiting or cough. Unable to get any history from this patient because of his condition. Allergies: Coded Allergies: No Known Allergies (Unverified , 01/27/17) Patient History Past Medical History: see triage record, old chart reviewed, seizures Past Surgical History: other Pertinent Family History: none Social History: Denies: smoking Immunizations: other Reviewed Nursing Documentation: PMH: Agreed; PSxH: Agreed Nursing Documentation-PMH Past Medical History: No History, Except For Hx Cardiac Problems: Yes Hx Hypertension: Yes Hx Pacemaker: No Hx Asthma: Yes Hx Cancer: No Hx Gastrointestinal Problems: Yes Hx Neurological Problems: Yes Hx Cerebrovascular Accident: Yes Hx Transient Ischemic Attacks: Yes Hx Dementia: Yes Hx Encephalitis: Yes Hx Seizures: Yes Hx Epilepsy: Yes Hx Syncope: Yes Hx Dysphasia: Yes Review of Systems Constitutional: Reports: malaise, weakness All Other Systems: limited - Secondary to condition Physical Exam Vital Signs Date Time Temp Pulse Resp B/P (MAP) Pulse Ox O2 Delivery O2 Flow Rate FiO2 01/22/19 21:11 97.9 94 18 136/75 (95) 96 Trach Collar Vitals unremarkable Sp02 EP Interpretation: reviewed, normal General Appearance: cachetic, thin, Chronically Ill Head: normocephalic, atraumatic Eyes: bilateral eye PERRL, bilateral eye EOMI ENT: dry mucus membranes Neck: full range of motion, supple, no meningismus, tracheotomy Respiratory: chest non-tender, lungs clear, normal breath sounds Cardiovascular #1: regular rate, rhythm, no murmur Gastrointestinal: normal bowel sounds, non tender, no mass, no organomegaly, no bruit, non-distended, other - G-tube Genitourinary: other - Manzo Musculoskeletal: other - Contracted Psychiatric: other Skin: warm/dry Procedures Critical Care Time Critical Care Time Critical care is mandated in this patient who presented with sepsis from pneumonia. Patient require my urgent intervention to attenuate the risks of metabolic collapse which may lead to cardiovascular collapse and . Critical care time is 35 minutes excluding any reportable procedure. Critical care time included evaluation, multiple reevaluation, looking at old charts, interpreting laboratory and diagnostic data, discussing case with patient and family and consultants, and charting. Medical Decision Making Diagnostic Impression: Primary Impression: Sepsis Qualified Codes: A41.9 - Sepsis, unspecified organism Additional Impressions: HCAP (healthcare-associated pneumonia) Toxic metabolic encephalopathy UTI (urinary tract infection), bacterial Decubitus ulcer Qualified Codes: L89.94 - Pressure ulcer of unspecified site, stage 4 Anemia Qualified Codes: D64.9 - Anemia, unspecified ER Course Patient with sepsis secondary to pneumonia. He grew out multidrug-resistant Pseudomonas that was intermediate to cefepime and sensitive to Levaquin. Antibiotics given. IV fluid given. Patient improved. I discussed the case with Dr. Arauz who will admit. My sepsis reevaluation: Vitals: See nursing note General: More awake and responsive Lungs: Better air movement Cardiovascular: Heart rate improved Abdomen: Soft Extremity: Contracted Skin: No mottling Capillary refill: Less than 2 seconds Lab Results Impression Labs with elevated white count EKG Diagnostic Results Rate: normal Rhythm: NSR ST Segments: no acute changes Rhythm Strip Diag. Results EP Interpretation: yes Rate: 100 Rhythm: NSR, no PVC's, no ectopy Chest X-Ray Diagnostic Results Chest X-Ray Diagnostic Results : Chest X-Ray Ordered: Yes # of Views/Limited/Complete: 1 View Indication: Shortness of Breath EP Interpretation: Yes Interpretation: no effusion, no pneumothorax, other - Left lower lobe infiltrate. Impression: Other - LLL infiltrate Electronically Signed by: Caleb Anderson MD Last Vital Signs Date Time Temp Pulse Resp B/P (MAP) Pulse Ox O2 Delivery O2 Flow Rate FiO2 01/22/19 21:11 97.9 94 18 136/75 (95) 96 Trach Collar Status: improved Disposition: ADMITTED INPATIENT Condition: Serious Caleb Anderson MD Jan 22, 2019 21:24
--- NOTE | 2019-01-22 21:25 | NUR ---
ED Nurse Note: left EJ iv inserted 20 g by ERMD. site intact and patent, dressing applied
--- NOTE | 2019-01-22 21:25 | NUR ---
ED Nurse Note: pt brought in by ambulance from [facility] c/c increased lethargy, per EMS report, pt has been feeling more weak stated by family. noted hermila juan, and francisc ojavier, pt nonverbal, sinus tach on fish boning machine feeder, vss, noted multiple wound on back, betsy buttock and sacral area, rectal temp 98.7, ERMD aware of pt's condition, will cont monitor.
--- NOTE | 2019-01-22 21:45 | NUR ---
ED Nurse Note: mcintyre cath 16fr replaced per ERMD order, pt tolerated well, 10 cc NS inserted. 30cc urine yellow with sediments returned.
[2019-01-22 21:50] VITALS: BP 150/76
--- NOTE | 2019-01-22 21:50 | NUR ---
ED Nurse Note: pt cleaned and changed into gown. safety precautions in place, sinus tach on monitoring tech, will cont monitor.
[2019-01-22 22:08] LABS: HEMATOCRIT 24.8 % (42.0-52.0); HEMOGLOBIN 8.3 G/DL (14.2-18.0); MEAN CORPUSCULAR VOLUME 80 FL (80-99); PLATELET COUNT 416 K/UL (150-450); RED BLOOD COUNT 3.08 M/UL (4.70-6.10); RED CELL DISTRIBUTION WIDTH 20.1 % (11.6-14.8); WHITE BLOOD COUNT 20.2 K/UL (4.8-10.8)
[2019-01-22] MEDS ORDERED: Cefepime HCl 1 GM in D5W 55 ML IVPB ONE (22:15)
[2019-01-22 22:16] LABS: ANION GAP 6 mmol/L (5-15); BLOOD UREA NITROGEN 29 mg/dL (7-18); CALCIUM 9.1 MG/DL (8.5-10.1); CARBON DIOXIDE 31 MMOL/L (21-32); CHLORIDE 92 MMOL/L (98-107); CREATININE 0.4 MG/DL (0.55-1.30); POTASSIUM 3.9 MMOL/L (3.5-5.1); SODIUM 129 MMOL/L (136-145)
[2019-01-22] MEDS ORDERED: Cefepime 1gm vial ONE (22:21)
[2019-01-22] MEDS ORDERED: D5W 55 ML IV ONE (22:21)
[2019-01-22 22:30] LABS: ALANINE AMINOTRANSFERASE 10 U/L (12-78); ALBUMIN 1.4 G/DL (3.4-5.0); ALBUMIN/GLOBULIN RATIO 0.2 (1.0-2.7); ALKALINE PHOSPHATASE 546 U/L (46-116); ASPARTATE AMINO TRANSFERASE 28 U/L (15-37); BILIRUBIN,TOTAL 1.1 MG/DL (0.2-1.0); CKMB 3.5 NG/ML (0.0-3.6); CREATINE KINASE 44 U/L (26-308)
[2019-01-22 22:33] LABS: BILIRUBIN,DIRECT 0.9 MG/DL (0.0-0.3)
[2019-01-22 22:36] LABS: APPEARANCE,URINE VERY CLOUDY; BILIRUBIN, URINE NEGATIVE (NEGATIVE); GLUCOSE, URINE (UA) NEGATIVE (NEGATIVE); KETONES,URINE NEGATIVE (NEGATIVE); LEUKOCYTE ESTERASE ,URINE 3+ (NEGATIVE); NITRITE,URINE NEGATIVE (NEGATIVE); PH,URINE 7 (4.5-8.0); PROTEIN,URINE 3+ (NEGATIVE); UROBILINOGEN,URINE 8 MG/DL (0.0-1.0)
[2019-01-22 22:37] LABS: COLOR,URINE YELLOW
[2019-01-22 22:50] VITALS: BP 138/70
--- NOTE | 2019-01-22 23:22 | NUR ---
ED Nurse Note: called to give report, per Yamileth, Receiving RN Mahesh unavailable at this time, call back to give report.
--- NOTE | 2019-01-22 23:43 | NUR ---
ED Nurse Note: report given to rn tim
[2019-01-22 23:50] VITALS: BP 109/67
--- NOTE | 2019-01-22 23:59 | NUR ---
ED Nurse Note: PT TRANSFERRED TO SDU, no belongings, family at the bedside, vss, sinus tach on sash repairer, pt on sash repairer, rt present during transport, iv intact and patent, care endorsed to LALA Aragon and SDU.
--- NOTE | 2019-01-23 | NUR ---
NURSE NOTES: RECEIVED PATIENT FROM ER NURSE, PATIENT'S FAMILY AT BEDSIDE STATUS.
--- NOTE | 2019-01-23 01:52 | NUR ---
NURSE NOTES: CALLED DR. OLIVA REGARDING ADMISSION ORDER THAT RECEIVED BY DR. BERRIOS, SAID WILL BE ORDER.
[2019-01-23] MEDS: Albuterol/Ipratropium 3ml neb HHN SCH ×3 (03:00→19:13)
[2019-01-23] MEDS ORDERED: Acetaminophen 650mg/20.3ml NG PRN (03:00)
[2019-01-23] MEDS ORDERED: Zosyn 3.375gm inj ONE (03:40)
[2019-01-23] MEDS ORDERED: Vancomycin 1gm vial IVPB ONE (03:40)
[2019-01-23] MEDS: Vancomycin 1gm/D5W 275ml IVPB SCH ×2 (03:47)
--- NOTE | 2019-01-23 04:00 | NUR ---
NURSE NOTES: MORNING CARE WAS DONE.
[2019-01-23] MEDS: Piperacillin/Tazobactam 3.375 GM in NS 110 ML IVPB SCH ×3 (05:50→22:20)
--- NOTE | 2019-01-23 05:56 | NUR ---
Pt. received trache with a portex 7 placed on the vent with the following vent settings: AC12/Vt500/ Peep 5/ Fio2.40. ABG done and no vent change ordered by Dr. Anderson. Lung sounds have been coarse airway suctioned for large amount of yellow/ green secretions. Tracheostomy care performed per policy airway remains patent. Will continue to monitor.
--- NOTE | 2019-01-23 07:30 | NUR ---
HAND-OFF: Report given to LALA ZELAYA.
--- NOTE | 2019-01-23 07:31 | NUR ---
NURSE NOTES: RECEIVED PATIENT FROM Donnell VELASQUEZ RN. PATIENT IS SEEN LYING IN BED, ASLEEP, ABLE TO OPEN EYES BUT DOESN'T TRACK. HOOKED TO COMPUTER EQUIPMENT INSTALLER. TRACH TO VENT. PORTEX 7, AC 12, TV 500, FiO2 40%, PEEP 5. NO SIGNS OF DISTRESS. GT IN PLACE. WITH SANCHEZ THAT WAS CHANGED IN ER. SKIN ALTERATION NOTED. AWAITING FOR MATTRESS. . CALL LIGHT WITHIN REACH, SIDE RAILS UP. BED AT LOWEST POSITION. WILL CONTINUE TO MONITOR.
--- NOTE | 2019-01-23 07:32 | NUR ---
NURSE NOTES: IV ON L EJ G20, IVF RUNNING NS AT 125ML/HR.
[2019-01-23 08:00] VITALS: BP 113/56
[2019-01-23] MEDS ORDERED: levETIRAcetam 500mg/5ml Liquid GT SCH (09:00)
--- NOTE | 2019-01-23 09:00 | History and Physical Report ---
DATE OF ADMISSION: 01/22/2019 CHIEF COMPLAINT: Sepsis. HISTORY OF PRESENT ILLNESS: The patient is an unfortunate 73-year-old male. He has a prior history of stroke, seizure disorder, pulmonary tuberculosis, chronic respiratory failure, and encephalopathy. He was transferred from a senior living facility with complaints of altered mental status. On evaluation in the emergency room, the patient was felt to be septic, urinary tract infection, and pneumonia. Broad-spectrum IV antibiotics have been instituted. The patient has been pancultured and is now admitted for further inpatient evaluation and care. He is poorly responsive at baseline. He is unable provide any additional history. PAST MEDICAL HISTORY: As above. PAST SURGICAL HISTORY: Includes a history of a trach and a G-tube. CURRENT MEDICATIONS: Reconciled and reviewed. ALLERGIES: None. FAMILY HISTORY: None. SOCIAL HISTORY: There is no known history of tobacco, ethanol, or drugs. REVIEW OF SYSTEMS: From the patient is unobtainable. PHYSICAL EXAMINATION: VITAL SIGNS: Temperature 98, pulse 114, respirations 22, and blood pressure 107/68. GENERAL: The patient is a chronically ill-appearing male, in no apparent distress. HEART: Regular rate and rhythm. LUNGS: Significant scattered rhonchi. ABDOMEN: Soft, nontender, and nondistended. EXTREMITIES: Without clubbing or cyanosis. The patient has multiple wounds that appear clean. LABORATORY DATA: White count 20,000, hemoglobin 8.3, and hematocrit 24. Sodium 129, potassium 3.9, chloride 92, BUN 29, and creatinine was 0.4. Urine showed too numerous to count wbc's. Chest x-ray showed bilateral infiltrates. ASSESSMENT: This is an unfortunate 73-year-old male with a history of encephalopathy, chronic respiratory failure, stroke, seizure disorder, and history of pulmonary TB, admitted with sepsis secondary to pneumonia and urinary tract infection. PLAN: 1. IV antibiotics. 2. Follow up cultures. 3. Ventilatory support. 4. Respiratory treatments. 5. Suction as needed. 6. Continue G-tube feeds and local wound care. 7. ID, Cardiology, Pulmonary, Infectious Disease, and surgical consultations have been obtained. 8. The patient's overall prognosis is poor. Jarrod Vásquez M.D. DR: CLARA JOB#: [id number] CC:
--- NOTE | 2019-01-23 09:02 | Consultation ---
Consult Note Consult Note 73-year-old male chronically ill who is bed and vent dependent and well known to me. He was transferred from [facility] facility with complaints of worsening mental status . At the longterm, the patient has been chronically ill but overall same with vent and bed bound status. He has been noted to have worsening leukocytosis, and hyponatremia. In the ER, the patient had a white count of 20,000. He was started on antibiotics He now requires inpatient evaluation and care. I was called to assist with vent management and care PAST MEDICAL HISTORY: stroke, seizure disorder, and chronic respiratory failure, decubitus, h/o TB and pneumonia. h/o sepsis PAST SURGICAL HISTORY: Includes a prior history of a trach and a G-tube. CURRENT MEDICATIONS: Reconciled and reviewed. ALLERGIES: None. FAMILY HISTORY: None. SOCIAL HISTORY: There is no known history of tobacco, ethanol, or drugs. resides at [place] REVIEW OF SYSTEMS: unobtainable as he is nonverbal. PHYSICAL EXAMINATION: GENERAL APPEARANCE: The patient is a chronically ill-appearing male, in no apparent distress. unresponsive. NECK: Supple. Trach site is clean, dry, and intact. CARDS: RRR without MRG LUNGS: occasional rhonchi. moderate air entry; no wheeze ABDOMEN: Soft, nontender, and nondistended. GT EXTREMITIES: No clubbing or cyanosis. reduced skin turgor multiple decubitus NEURO: obtunded Labs Test 01/22/19 21:20 01/22/19 21:40 01/22/19 22:15 Arterial Blood pH 7.440 (7.350-7.450) Arterial Blood Partial Pressure CO2 43.5 mmHg (35.0-45.0) Arterial Blood Partial Pressure O2 127.0 mmHg (75.0-100.0) Arterial Blood HCO3 29.0 mmol/L (22.0-26.0) Arterial Blood Oxygen Saturation 98.6 % (95-100) Arterial Blood Base Excess 4.4 (-2-2) Derek Test Positive White Blood Count 20.2 K/UL (4.8-10.8) Red Blood Count 3.08 M/UL (4.70-6.10) Hemoglobin 8.3 G/DL (14.2-18.0) Hematocrit 24.8 % (42.0-52.0) Mean Corpuscular Volume 80 FL (80-99) Mean Corpuscular Hemoglobin 26.9 PG (27.0-31.0) Mean Corpuscular Hemoglobin Concent 33.5 G/DL (32.0-36.0) Red Cell Distribution Width 20.1 % (11.6-14.8) Platelet Count 416 K/UL (150-450) Mean Platelet Volume 3.8 FL (6.5-10.1) Neutrophils (%) (Auto) % (45.0-75.0) Lymphocytes (%) (Auto) % (20.0-45.0) Monocytes (%) (Auto) % (1.0-10.0) Eosinophils (%) (Auto) % (0.0-3.0) Basophils (%) (Auto) % (0.0-2.0) Differential Total Cells Counted 100 Neutrophils % (Manual) 79 % (45-75) Lymphocytes % (Manual) 8 % (20-45) Monocytes % (Manual) 6 % (1-10) Eosinophils % (Manual) 6 % (0-3) Basophils % (Manual) 1 % (0-2) Band Neutrophils 0 % (0-8) Platelet Estimate Adequate Platelet Morphology Normal Polychromasia 1+ Anisocytosis 2+ Microcytosis 1+ Sodium Level 129 MMOL/L (136-145) Potassium Level 3.9 MMOL/L (3.5-5.1) Chloride Level 92 MMOL/L (98-107) Carbon Dioxide Level 31 MMOL/L (21-32) Anion Gap 6 mmol/L (5-15) Blood Urea Nitrogen 29 mg/dL (7-18) Creatinine 0.4 MG/DL (0.55-1.30) Estimat Glomerular Filtration Rate mL/min (>60) Glucose Level 90 MG/DL (74-106) Lactic Acid Level 0.60 mmol/L (0.4-2.0) Calcium Level 9.1 MG/DL (8.5-10.1) Total Bilirubin 1.1 MG/DL (0.2-1.0) Direct Bilirubin 0.9 MG/DL (0.0-0.3) Aspartate Amino Transf (AST/SGOT) 28 U/L (15-37) Alanine Aminotransferase (ALT/SGPT) 10 U/L (12-78) Alkaline Phosphatase 546 U/L (46-116) Total Creatine Kinase 44 U/L (26-308) Creatine Kinase MB 3.5 NG/ML (0.0-3.6) Creatine Kinase MB Relative Index 7.9 Troponin I 0.000 ng/mL (0.000-0.056) Total Protein 7.8 G/DL (6.4-8.2) Albumin 1.4 G/DL (3.4-5.0) Globulin 6.4 g/dL Albumin/Globulin Ratio 0.2 (1.0-2.7) Urine Color Yellow Urine Appearance Very cloudy Urine pH 7 (4.5-8.0) Urine Specific Taylor 1.010 (1.005-1.035) Urine Protein 3+ (NEGATIVE) Urine Glucose (UA) Negative (NEGATIVE) Urine Ketones Negative (NEGATIVE) Urine Blood 5+ (NEGATIVE) Urine Nitrite Negative (NEGATIVE) Urine Bilirubin Negative (NEGATIVE) Urine Urobilinogen 8 MG/DL (0.0-1.0) Urine Leukocyte Esterase 3+ (NEGATIVE) Urine RBC Tntc /HPF (0 - 0) Urine WBC Tntc /HPF (0 - 0) Urine Squamous Epithelial Cells None /LPF (NONE/OCC) Urine Bacteria Many /HPF (NONE) ASSESSMENT: toxic metabolic encephalopathy, history of stroke, chronic respiratory failure, hyponatremia, acute on chronic renal failure, chronic encephalopathy, seizure disorder, pulmonary tuberculosis, and anemia possible sepsis, leukocytosis PLAN care noted IV antibiotics respiratory care Ventilatory support- no wean SNF meds supportive care as is suction oxygen therapy prognosis poor impression, plan, and exam edited and reviewed in detail care discussed with Nakul Elena MD Jan 23, 2019 09:02
--- NOTE | 2019-01-23 09:06 | Pulmonology Progress Note ---
Assessment/Plan Assessment/Plan ASSESSMENT: toxic metabolic encephalopathy, history of stroke, chronic respiratory failure, hyponatremia, acute on chronic renal failure, chronic encephalopathy, seizure disorder, pulmonary tuberculosis, and anemia possible sepsis, leukocytosis PLAN care noted IV antibiotics respiratory care Ventilatory support- no wean SNF meds supportive care as is suction oxygen therapy prognosis poor impression, plan, and exam edited and reviewed in detail care discussed with RN Subjective ROS Limited/Unobtainable: Yes Allergies: Coded Allergies: No Known Allergies (Unverified , 01/27/17) Objective Last 24 Hour Vital Signs Date Time Temp Pulse Resp B/P (MAP) Pulse Ox O2 Delivery O2 Flow Rate FiO2 01/23/19 08:00 102.3 118 25 113/56 (75) 100 01/23/19 08:00 102.3 118 25 113/56 (75) 100 01/23/19 08:00 40 01/23/19 07:15 114 22 100 Mechanical Ventilator 01/23/19 07:01 114 22 40 01/23/19 07:00 114 22 100 Mechanical Ventilator 01/23/19 05:24 111 20 40 01/23/19 04:00 Mechanical Ventilator 01/23/19 04:00 40 01/23/19 02:55 116 18 40 01/23/19 00:59 118 19 40 01/23/19 00:41 120 01/23/19 00:01 98.9 112 37 107/68 100 Mechanical Ventilator 40 01/23/19 00:00 Mechanical Ventilator 01/22/19 23:50 98.4 110 38 109/67 100 Mechanical Ventilator 40 01/22/19 23:25 120 38 40 01/22/19 23:02 40 01/22/19 22:50 97.8 108 36 138/70 97 Mechanical Ventilator 40 01/22/19 21:50 105 36 Mechanical Ventilator 40 01/22/19 21:50 98.7 105 36 150/76 97 Mechanical Ventilator 40 01/22/19 21:31 97 36 40 01/22/19 21:30 97 18 97 Mechanical Ventilator 40 01/22/19 21:11 97.9 94 18 136/75 (95) 96 Trach Collar Intake and Output 01/22/19 01/23/19 19:00 07:00 Intake Total 677.5 ml Output Total 625 ml Balance 52.5 ml Intake Oral 0 ml IV Total 677.5 ml Output Urine Total 625 ml Objective GENERAL APPEARANCE: The patient is a chronically ill-appearing male, in no apparent distress. unresponsive. NECK: Supple. Trach site is clean, dry, and intact. CARDS: RRR without MRG LUNGS: occasional rhonchi. moderate air entry; no wheeze ABDOMEN: Soft, nontender, and nondistended. GT EXTREMITIES: No clubbing or cyanosis. reduced skin turgor multiple decubitus NEURO: obtunded Microbiology Date/Time Source Procedure Growth Status 01/22/19 22:15 Wound Gram Stain - Final Resulted 01/22/19 22:15 Wound Wound Culture Pending Resulted 01/22/19 22:15 Rectum Received Laboratory Tests 01/22/19 21:20: Arterial Blood pH 7.440, Arterial Blood Partial Pressure CO2 43.5, Arterial Blood Partial Pressure O2 127.0H, Arterial Blood HCO3 29.0H, Arterial Blood Oxygen Saturation 98.6, Arterial Blood Base Excess 4.4H, Derek Test Positive 01/22/19 21:40: White Blood Count 20.2H, Red Blood Count 3.08L, Hemoglobin 8.3L, Hematocrit 24.8L, Mean Corpuscular Volume 80, Mean Corpuscular Hemoglobin 26.9L, Mean Corpuscular Hemoglobin Concent 33.5, Red Cell Distribution Width 20.1H, Platelet Count 416, Mean Platelet Volume 3.8L, Neutrophils (%) (Auto) , Lymphocytes (%) (Auto) , Monocytes (%) (Auto) , Eosinophils (%) (Auto) , Basophils (%) (Auto) , Differential Total Cells Counted 100, Neutrophils % ( Manual) 79H, Lymphocytes % (Manual) 8L, Monocytes % (Manual) 6, Eosinophils % ( Manual) 6H, Basophils % (Manual) 1, Band Neutrophils 0, Platelet Estimate Adequate, Platelet Morphology Normal, Polychromasia 1+, Anisocytosis 2+, Microcytosis 1+, Sodium Level 129L, Potassium Level 3.9, Chloride Level 92L, Carbon Dioxide Level 31, Anion Gap 6, Blood Urea Nitrogen 29H, Creatinine 0.4L, Estimat Glomerular Filtration Rate , Glucose Level 90, Lactic Acid Level 0.60, Calcium Level 9.1, Total Bilirubin 1.1H, Direct Bilirubin 0.9H, Aspartate Amino Transf (AST/SGOT) 28, Alanine Aminotransferase (ALT/SGPT) 10L, Alkaline Phosphatase 546H, Total Creatine Kinase 44, Creatine Kinase MB 3.5, Creatine Kinase MB Relative Index 7.9, Troponin I 0.000, Total Protein 7.8, Albumin 1.4L , Globulin 6.4, Albumin/Globulin Ratio 0.2L 01/22/19 22:15: Urine Color Yellow, Urine Appearance Very cloudy, Urine pH 7, Urine Specific [place] 1.010, Urine Protein 3+H, Urine Glucose (UA) Negative, Urine Ketones Negative, Urine Blood 5+H, Urine Nitrite Negative, Urine Bilirubin Negative, Urine Urobilinogen 8H, Urine Leukocyte Esterase 3+H, Urine RBC TntcH, Urine WBC TntcH, Urine Squamous Epithelial Cells None, Urine Bacteria ManyH Current Medications Medications (Trade) Dose Ordered Sig/Iram Route PRN Reason Start Time Stop Time Status Last Admin Dose Admin Acetaminophen (Tylenol) 650 mg Q4H PRN NG fever 01/23/19 03:00 02/22/19 02:59 Albuterol/ Ipratropium (Albuterol/ Ipratropium) 3 ml Q6HRT HHN 01/23/19 03:00 01/28/19 02:59 01/23/19 07:21 Famotidine (Pepcid) 20 mg BID GT 01/23/19 09:00 02/22/19 08:59 Levetiracetam (Keppra) 750 mg Q12HR GT 01/23/19 09:00 02/22/19 08:59 Piperacillin Sod/ Tazobactam Sod 3.375 gm/Sodium Chloride 110 ml @ 27.5 mls/hr EVERY 8 HOURS IVPB 01/23/19 06:00 01/28/19 05:59 01/23/19 05:50 Sodium Chloride 1,000 ml @ 125 mls/hr Q8H IV 01/23/19 03:30 02/22/19 03:29 01/23/19 03:48 Vancomycin HCl (Vanco rx to dose) 1 ea DAILY PRN MISC Per rx protocol 01/23/19 02:45 02/22/19 02:44 Vancomycin HCl 1 gm/Dextrose 275 ml @ 183.708 mls/hr Q24H IVPB 01/23/19 04:00 01/28/19 03:59 01/23/19 03:47 Nakul Cisse MD Jan 23, 2019 09:06
[2019-01-23] MEDS: levETIRAcetam 500mg/5ml Liquid GT SCH ×2 (10:31→20:18)
[2019-01-23] MEDS: Acetaminophen 650mg/20.3ml NG PRN (10:32)
--- NOTE | 2019-01-23 10:39 | NUR ---
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 . 2) Increased kcal/prot needs R/T underweight status w/ wasting, and wound healing as evidenced by low BMI under guidelines, noted w/ severe generalized wasting, pt w/ multiple advanced wounds, pending eval CURRENT TF:NPO ENTERAL NUTRITION RECOMMENDATIONS: Vital AF 1.2 @ 65ml/hr x 24 hrs to provide 1560ml, 1872kcal, 117g prot, 1265ml free water - As medically appropriate, initiate Vital AF 1.2 @ 35ml/hr x 6 hrs - Advance 10ml q 4-6 hrs as tolerated to goal rate - Meets 100% est kcal and protein needs. - HOB over 30 degrees/ water flush per MD ADDITIONAL RECOMMENDATIONS: 1) WOUND HEALING: add Vit C 500mg BID, Edgard 1pkt BID 2) RECALIBRATE BED SCALE FOR ACCURATE CBW + weekly wt monitoring given underweight status 3) Check lytes daily, replete as needed . .
--- NOTE | 2019-01-23 11:00 | Diagnostic Imaging Report ---
Indication: Shortness of breath Technique: One view of the chest Comparison: 12/15/2018 Findings: Patient's knee obscures the right lung base; per technologist, patient contracted and unable to move out of the way. Again demonstrated is bilateral interstitial disease, appearing increased on the left from the previous study. There is blunting of left costophrenic angle which appears similar to prior exam. Infiltrates in the right middle lower lung appears similar to the prior exam. Tracheostomy is again demonstrated. Impression: Bilateral infiltrates versus edema, appearing increased on the left, similar on the right as compared to prior study of 12/15/2018
[2019-01-23 12:00] VITALS: BP 100/60
[2019-01-23] MEDS: Ascorbic Acid 500mg tab GT SCH ×2 (13:53→18:27)
[2019-01-23] MEDS: Dakin's 0.125% Soln (Quarter Strength) 16oz TOPIC SCH ×2 (13:54→20:20)
--- NOTE | 2019-01-23 14:50 | NUR ---
NURSE NOTES:WOUND CARE NOTES:Pt presented on admission with multiple pressure injuries. Resolving pressure injury L occipital. Dry pink epithelial noted. Skin assessed under trach collar and no areas of concerns noted . R and L ears dry . Full thickness pressure injury with undermining thoracic spine . Base of wound 75% granular with 25% fibrinous slough. Mild odor noted.(L)8.5cm x (W)6.5cmx(D)1cm, undermining clockwise 6-1 by 3cm @12o'clock. Full thickness pressure injury L trochanter. 100% mixed necrosis/slough at base of wound and undermined borders.Non-blanchable erythema with induration noted periwound. Mild odor noted .(L)3.5cm x (W)4.5cm. Resolving DTPI L ischium .Centrally wound is red and fluctuant .Bone is palpable. Black with red tinged indurated borders noted. (L) (L)4.4cm x (W)3.2cm. Ful thickness pressure injury R Iliac with 10% velazquez slough centrally.90% granular.Edges adherent and flat. (L)3cm x (W)3.2cm x(D)0.2cm. No odor or exudate noted.Darker skin tone without fluctuance noted periwound. Full thickness pressure injury with undermining R trochanter. Base of wound 60^ beefy red with 40% velazquez slough.erythejma noted along borders. Small amt seropurulent exudate that is mildly odorous.(L)5.5cm x (W)6.6cm x (D)1.5cm,undermining clockwise 12-12 by 4.5cm @3o'clock. Full thickness pressure injury R ischium (L)4.2cm x (W)5.5cm x(D)1.6cm,undermining 12-12 by 1.8cm @12o'clock .Base of wound 60% granular ,40% velazquez slough undermined borders.Wound has mild odor with small amt seropurulent exudate.darker skin tone that is indurated periwound. Resolving pressure injury sacrum . Base of wound dry with pink epithelial.with scattered shearing within base of wound. L heel boggy with non-blanchable erythema. DTPI R heel and Lateral aspect .Base of wound is maroon with fluctuance. (L)4.5cm x (W)7.3cm. Tx.Plan. Cleanse wounds Thoracic and lumbar spine with Dakin's 0.125% segun. Pack with Dakin's moist gauze. Apply Moisture Barrier Paste periwound. Cover each wound with Optifoam drsg.Twice Daily and prn. Cleanse wound L trochanter and L ischium with Dakin's 0.125% segun. Pack with Dakin's moist Gauze.Apply Moisture Barrier paste periwound. Cover with Optifoam drsg. Twice daily and prn. Cleanse wounds R iliac ,R trochanter,R ischium with Dakin's 0.125% segun. Pack with Dakin's moist gauze. Apply Moisture Barrier Paste periwound. Cover with Optifoam drsg Twice daily and prn. Apply Moisture Barrier paste to sacrum. Cover with Optifoam drsg. Change every 3 days and prn. Apply Cavilon Skin Barrier to Both heels. Cover each heel with Optifoam drsg. Change every 7 days and prn. Air Fluidized Mattress. Reposition at least every 2hours or as tolerated. Off-load heels with pillow.
--- NOTE | 2019-01-23 14:57 | Consultation ---
History of Present Illness General Date patient seen: Jan 23, 2019 Chief Complaint: General Complaint Present Illness HPI This is a 73 year old male with multiple medical comorbidities who is a halfway resident known to me from prior admissions. Patient admitted for sepsis with leukocytosis, febrile, tachycardia. On admission still with multiple wounds in worsening condition. Surgery called to evaluate and assist with care. patient seen, chart reviewed, patient examined. he continues to become more deconditioned during each visit. Allergies: Coded Allergies: No Known Allergies (Unverified , 01/27/17) Medication History Scheduled Amlodipine Besylate* (Amlodipine Besylate*), 10 MG GT DAILY, (Reported) Ascorbic Acid* (Ascorbic Acid*), 500 MG GT DAILY, (Reported) Aspirin* (Aspirin*), 81 MG GT DAILY, (Reported) Atorvastatin Calcium* (Lipitor*), 10 MG GT BEDTIME Docusate Sodium* (Colace*), 100 MG GT DAILY, (Reported) Doxazosin Mesylate* (Cardura*), 1 MG GT QHS, (Reported) Isoniazid (Isoniazid), 300 MG GT DAILY, (Reported) Lansoprazole* (Lansoprazole*), 30 MG ORAL Q12HR Levetiracetam* (Levetiracetam*), 750 MG GT BID, (Reported) Metoprolol Tartrate* (Metoprolol Tartrate*), 50 MG GT EVERY 12 HOURS, (Reported) Protein Supplement (Promod), 30 ML GT DAILY, (Reported) Pyrazinamide (Pyrazinamide), 1,000 MG GT DAILY, (Reported) Rifampin (Rifampin), 600 MG GT DAILY, (Reported) Scheduled PRN Dextran 70/Hypromellose (Artificial Tears Eye Drops*), 2 DROP BOTH EYES for DRY EYES, (Reported) Hydrocodone Bit/Acetaminophen 5-325* (Coolspring 5-325*), 1 TAB GT Q8HR PRN for For Pain, (Reported) Discontinued Medications Acetaminophen 160MG/5ML* (Acetaminophen*), 20 ML GT DAILY, (Reported) Discontinued Reason: Therapy completed Acetaminophen 160MG/5ML* (Acetaminophen*), 20 ML GT Q4HR PRN for Fever/Headache/ Mild Pain, (Reported) Discontinued Reason: Therapy completed Amikacin Sulfate (Amikin), 500 MG INH Q12HR@ Discontinued Reason: Therapy completed Bisacodyl (Dulcolax), 10 MG RC DAILY PRN for IF MOM INEFFECTIVE, (Reported) Discontinued Reason: Therapy completed Magnesium Hydroxide* (Milk Of Magnesia*), 30 ML GT DAILY PRN for IF DOCUSATE INEFECTIVE, (Reported) Discontinued Reason: Therapy completed Meropenem (Meropenem), 1 GM IVPB Q8H Discontinued Reason: Therapy completed Multivitamin With Minerals (Multivitamins With Minerals*), 1 TAB GT DAILY, ( Reported) Discontinued Reason: Therapy completed Na Phos,M-B/Na Phos,Di-Ba* (Fleet Enema*), 133 ML RECTAL PRN PRN for Q 2 DAYS, ( Reported) Discontinued Reason: Therapy completed Pyridoxine Hcl (Vitamin B-6), 100 MG GT DAILY, (Reported) Discontinued Reason: Therapy completed Vancomycin In Dextrose,Iso-Osm (Vancomycin 750 Mg/150 Ml Bag), 750 MG IVPB Q12H Discontinued Reason: Therapy completed Zinc Sulfate (Zinc Sulfate*), 220 MG GT DAILY, (Reported) Discontinued Reason: Therapy completed Patient History Limited by: medical condition History Provided By: Medical Record, PMD Healthcare decision maker RONY RICHARDS Resuscitation status Full Code Advanced Directive on File Past Medical/Surgical History Past Medical/Surgical History: (1) Dementia (2) Respiratory distress (3) Hyperlipidemia (4) Aspiration pneumonia (5) Encephalopathy (6) Probable sepsis (7) Dyspnea (8) Aspiration pneumonia (9) Vitamin B 12 deficiency (10) Status epilepticus (11) HTN (hypertension) (12) Encephalopathy acute (13) BPH (benign prostatic hyperplasia) (14) Abnormal LFTs (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 (16) decu (17) HCAP (healthcare-associated pneumonia) (18) Decubitus ulcer (19) Anemia (20) UTI (urinary tract infection), bacterial (21) Toxic metabolic encephalopathy (22) Sepsis (23) Pneumonia Review of Systems ROS Narrative cannot obtain given medical condition Physical Exam General Appearance: no apparent distress, lethargic Lines, tubes and drains: other HEENT: other Neck: trach Respiratory/Chest: decreased breath sounds Cardiovascular/Chest: tachycardia Abdomen: soft, no organomegaly, no mass, feeding tube, other Extremities: other Skin Exam: other Neurologic: unresponsiveness Last 24 Hour Vital Signs Date Time Temp Pulse Resp B/P (MAP) Pulse Ox O2 Delivery O2 Flow Rate FiO2 01/23/19 12:00 97 01/23/19 12:00 98.8 93 24 100/60 (73) 100 01/23/19 12:00 40 01/23/19 11:20 116 30 40 01/23/19 11:02 98.8 01/23/19 09:00 106 20 40 01/23/19 08:00 102.3 118 25 113/56 (75) 100 01/23/19 08:00 118 01/23/19 08:00 102.3 118 25 113/56 (75) 100 01/23/19 08:00 40 01/23/19 07:15 114 22 100 Mechanical Ventilator 01/23/19 07:01 114 22 40 01/23/19 07:00 114 22 100 Mechanical Ventilator 01/23/19 05:24 111 20 40 01/23/19 04:00 Mechanical Ventilator 01/23/19 04:00 40 01/23/19 02:55 116 18 40 01/23/19 00:59 118 19 40 01/23/19 00:41 120 01/23/19 00:01 98.9 112 37 107/68 100 Mechanical Ventilator 40 01/23/19 00:00 Mechanical Ventilator 01/22/19 23:50 98.4 110 38 109/67 100 Mechanical Ventilator 40 01/22/19 23:25 120 38 40 01/22/19 23:02 40 01/22/19 22:50 97.8 108 36 138/70 97 Mechanical Ventilator 40 01/22/19 21:50 105 36 Mechanical Ventilator 40 01/22/19 21:50 98.7 105 36 150/76 97 Mechanical Ventilator 40 01/22/19 21:31 97 36 40 01/22/19 21:30 97 18 97 Mechanical Ventilator 40 01/22/19 21:11 97.9 94 18 136/75 (95) 96 Trach Collar Intake and Output 01/22/19 01/23/19 18:59 06:59 Intake Total 677.5 ml Output Total 625 ml Balance 52.5 ml Intake Oral 0 ml IV Total 677.5 ml Output Urine Total 625 ml Laboratory Tests Test 01/22/19 21:20 01/22/19 21:40 01/22/19 22:15 Arterial Blood pH 7.440 (7.350-7.450) Arterial Blood Partial Pressure CO2 43.5 mmHg (35.0-45.0) Arterial Blood Partial Pressure O2 127.0 mmHg (75.0-100.0) H Arterial Blood HCO3 29.0 mmol/L (22.0-26.0) H Arterial Blood Oxygen Saturation 98.6 % (95-100) Arterial Blood Base Excess 4.4 (-2-2) H Derek Test Positive White Blood Count 20.2 K/UL (4.8-10.8) H Red Blood Count 3.08 M/UL (4.70-6.10) L Hemoglobin 8.3 G/DL (14.2-18.0) L Hematocrit 24.8 % (42.0-52.0) L Mean Corpuscular Volume 80 FL (80-99) Mean Corpuscular Hemoglobin 26.9 PG (27.0-31.0) L Mean Corpuscular Hemoglobin Concent 33.5 G/DL (32.0-36.0) Red Cell Distribution Width 20.1 % (11.6-14.8) H Platelet Count 416 K/UL (150-450) Mean Platelet Volume 3.8 FL (6.5-10.1) L Neutrophils (%) (Auto) % (45.0-75.0) Lymphocytes (%) (Auto) % (20.0-45.0) Monocytes (%) (Auto) % (1.0-10.0) Eosinophils (%) (Auto) % (0.0-3.0) Basophils (%) (Auto) % (0.0-2.0) Differential Total Cells Counted 100 Neutrophils % (Manual) 79 % (45-75) H Lymphocytes % (Manual) 8 % (20-45) L Monocytes % (Manual) 6 % (1-10) Eosinophils % (Manual) 6 % (0-3) H Basophils % (Manual) 1 % (0-2) Band Neutrophils 0 % (0-8) Platelet Estimate Adequate Platelet Morphology Normal Polychromasia 1+ Anisocytosis 2+ Microcytosis 1+ Sodium Level 129 MMOL/L (136-145) L Potassium Level 3.9 MMOL/L (3.5-5.1) Chloride Level 92 MMOL/L (98-107) L Carbon Dioxide Level 31 MMOL/L (21-32) Anion Gap 6 mmol/L (5-15) Blood Urea Nitrogen 29 mg/dL (7-18) H Creatinine 0.4 MG/DL (0.55-1.30) L Estimat Glomerular Filtration Rate mL/min (>60) Glucose Level 90 MG/DL (74-106) Lactic Acid Level 0.60 mmol/L (0.4-2.0) Calcium Level 9.1 MG/DL (8.5-10.1) Total Bilirubin 1.1 MG/DL (0.2-1.0) H Direct Bilirubin 0.9 MG/DL (0.0-0.3) H Aspartate Amino Transf (AST/SGOT) 28 U/L (15-37) Alanine Aminotransferase (ALT/SGPT) 10 U/L (12-78) L Alkaline Phosphatase 546 U/L (46-116) H Total Creatine Kinase 44 U/L (26-308) Creatine Kinase MB 3.5 NG/ML (0.0-3.6) Creatine Kinase MB Relative Index 7.9 Troponin I 0.000 ng/mL (0.000-0.056) Total Protein 7.8 G/DL (6.4-8.2) Albumin 1.4 G/DL (3.4-5.0) L Globulin 6.4 g/dL Albumin/Globulin Ratio 0.2 (1.0-2.7) L Urine Color Yellow Urine Appearance Very cloudy Urine pH 7 (4.5-8.0) Urine Specific [place] 1.010 (1.005-1.035) Urine Protein 3+ (NEGATIVE) H Urine Glucose (UA) Negative (NEGATIVE) Urine Ketones Negative (NEGATIVE) Urine Blood 5+ (NEGATIVE) H Urine Nitrite Negative (NEGATIVE) Urine Bilirubin Negative (NEGATIVE) Urine Urobilinogen 8 MG/DL (0.0-1.0) H Urine Leukocyte Esterase 3+ (NEGATIVE) H Urine RBC Tntc /HPF (0 - 0) H Urine WBC Tntc /HPF (0 - 0) H Urine Squamous Epithelial Cells None /LPF (NONE/OCC) Urine Bacteria Many /HPF (NONE) H Microbiology Date/Time Source Procedure Growth Status 01/22/19 22:15 Wound Gram Stain - Final Resulted 01/22/19 22:15 Wound Wound Culture Pending Resulted 01/22/19 22:15 Urine,Clean Catch Urine Culture - Preliminary Resulted 01/22/19 22:15 Rectum Received Height (Feet): 5 Height (Inches): 5.00 Weight (Pounds): 131 Medications Current Medications Medications (Trade) Dose Ordered Sig/Iram Route PRN Reason Start Time Stop Time Status Last Admin Dose Admin Acetaminophen (Tylenol) 650 mg Q4H PRN NG fever 01/23/19 10:21 02/22/19 10:20 01/23/19 10:32 Albuterol/ Ipratropium (Albuterol/ Ipratropium) 3 ml Q6HRT HHN 01/23/19 13:00 01/28/19 12:59 Ascorbic Acid (Vitamin C) 500 mg BID GT 01/23/19 11:00 02/22/19 10:59 01/23/19 13:53 Famotidine (Pepcid) 20 mg BID GT 01/23/19 10:21 02/22/19 10:20 01/23/19 10:31 Levetiracetam (Keppra) 750 mg Q12HR GT 01/23/19 10:21 02/22/19 10:20 01/23/19 10:31 Piperacillin Sod/ Tazobactam Sod 3.375 gm/Sodium Chloride 110 ml @ 27.5 mls/hr EVERY 8 HOURS IVPB 01/23/19 06:00 01/28/19 05:59 01/23/19 13:54 Sodium Hypochlorite (Dakin's Quarter Strength) 1 applic Q12HR TOPIC 01/23/19 11:30 02/22/19 11:29 01/23/19 13:54 Sodium Chloride 1,000 ml @ 125 mls/hr Q8H IV 01/23/19 03:30 02/22/19 03:29 01/23/19 13:53 Vancomycin HCl (Vanco rx to dose) 1 ea DAILY PRN MISC Per rx protocol 01/23/19 02:45 02/22/19 02:44 Vancomycin HCl 1 gm/Dextrose 275 ml @ 183.708 mls/hr Q24H IVPB 01/23/19 04:00 01/28/19 03:59 01/23/19 03:47 Assessment/Plan Problem List: (1) HCAP (healthcare-associated pneumonia) ICD Codes: J18.9 - Pneumonia, unspecified organism SNOMED: 741451883, 350061110 (2) Decubitus ulcer Assessment & Plan: Pt presented on admission with multiple pressure injuries. Resolving pressure injury L occipital. Dry pink epithelial noted. Skin assessed under trach collar and no areas of concerns noted . R and L ears dry . Full thickness pressure injury with undermining thoracic spine . Base of wound 75% granular with 25% fibrinous slough. Mild odor noted.(L)8.5cm x (W)6.5cmx(D) 1cm, undermining clockwise 6-1 by 3cm @12o'clock. Full thickness pressure injury L trochanter. 100% mixed necrosis/slough at base of wound and undermined borders.Non-blanchable erythema with induration noted periwound. Mild odor noted .(L)3.5cm x (W)4.5cm. Resolving DTPI L ischium .Centrally wound is red and fluctuant .Bone is palpable. Black with red tinged indurated borders noted. (L) (L)4.4cm x (W) 3.2cm. Ful thickness pressure injury R Iliac with 10% velazquez slough centrally.90% granular.Edges adherent and flat. (L)3cm x (W)3.2cm x(D)0.2cm. No odor or exudate noted.Darker skin tone without fluctuance noted periwound. Full thickness pressure injury with undermining R trochanter. Base of wound 60^ beefy red with 40% velazquez slough.erythejma noted along borders. Small amt seropurulent exudate that is mildly odorous.(L)5.5cm x (W)6.6cm x (D)1.5cm, undermining clockwise 12-12 by 4.5cm @3o'clock. Full thickness pressure injury R ischium (L)4.2cm x (W)5.5cm x(D)1.6cm, undermining 12-12 by 1.8cm @12o'clock .Base of wound 60% granular ,40% velazquez slough undermined borders.Wound has mild odor with small amt seropurulent exudate.darker skin tone that is indurated periwound. Resolving pressure injury sacrum . Base of wound dry with pink epithelial.with scattered shearing within base of wound. L heel boggy with non-blanchable erythema. DTPI R heel and Lateral aspect .Base of wound is maroon with fluctuance. (L) 4.5cm x (W)7.3cm. Tx.Plan. Cleanse wounds Thoracic and lumbar spine with Dakin's 0.125% segun. Pack with Dakin's moist gauze. Apply Moisture Barrier Paste periwound. Cover each wound with Optifoam drsg.Twice Daily and prn. Cleanse wound L trochanter and L ischium with Dakin's 0.125% segun. Pack with Dakin's moist Gauze.Apply Moisture Barrier paste periwound. Cover with Optifoam drsg. Twice daily and prn. Cleanse wounds R iliac ,R trochanter,R ischium with Dakin's 0.125% segun. Pack with Dakin's moist gauze. Apply Moisture Barrier Paste periwound. Cover with Optifoam drsg Twice daily and prn. Apply Moisture Barrier paste to sacrum. Cover with Optifoam drsg. Change every 3 days and prn. Apply Cavilon Skin Barrier to Both heels. Cover each heel with Optifoam drsg. Change every 7 days and prn. Air Fluidized Mattress. Reposition at least every 2hours or as tolerated. Off-load heels with pillow. ICD Codes: L89.90 - Pressure ulcer of unspecified site, unspecified stage SNOMED: 665958332 Qualifiers: Qualified Codes: L89.94 - Pressure ulcer of unspecified site, stage 4 (3) Anemia ICD Codes: D64.9 - Anemia, unspecified SNOMED: 353465990 Qualifiers: Qualified Codes: D64.9 - Anemia, unspecified (4) UTI (urinary tract infection), bacterial ICD Codes: N39.0 - Urinary tract infection, site not specified; A49.9 - Bacterial infection, unspecified SNOMED: 768179141 (5) Toxic metabolic encephalopathy ICD Codes: G92 - Toxic encephalopathy SNOMED: 761384596 (6) Dementia ICD Codes: F03.90 - Unspecified dementia without behavioral disturbance SNOMED: 20941793 (7) Dyspnea ICD Codes: R06.00 - Dyspnea, unspecified SNOMED: 425527907 (8) Respiratory distress ICD Codes: R06.03 - Acute respiratory distress SNOMED: 273147675 (9) Hyperlipidemia ICD Codes: E78.5 - Hyperlipidemia, unspecified SNOMED: 47456865 (10) Aspiration pneumonia ICD Codes: J69.0 - Pneumonitis due to inhalation of food and vomit SNOMED: 582331849 (11) Aspiration pneumonia ICD Codes: J69.0 - Pneumonitis due to inhalation of food and vomit SNOMED: 003849403 (12) Vitamin B 12 deficiency ICD Codes: E53.8 - Deficiency of other specified B group vitamins SNOMED: 340630723 (13) Encephalopathy ICD Codes: G93.40 - Encephalopathy, unspecified SNOMED: 34207317 (14) Sepsis Assessment & Plan: Pending further work up cont with IV fluids Cont with IV abx as per ID CXR noted labs noted pending micro ICD Codes: A41.9 - Sepsis, unspecified organism SNOMED: 44629112 Qualifiers: Qualified Codes: A41.9 - Sepsis, unspecified organism (15) Pneumonia ICD Codes: J18.9 - Pneumonia, unspecified organism SNOMED: 843979959 (16) Status epilepticus ICD Codes: G40.901 - Epilepsy, unspecified, not intractable, with status epilepticus SNOMED: 531677931 (17) HTN (hypertension) ICD Codes: I10 - Essential (primary) hypertension SNOMED: 46531088 (18) Encephalopathy acute ICD Codes: G93.40 - Encephalopathy, unspecified SNOMED: 34734822, 870667363 (19) BPH (benign prostatic hyperplasia) ICD Codes: N40.0 - Benign prostatic hyperplasia without lower urinary tract symptoms SNOMED: 480537674, 545944276 (20) Abnormal LFTs ICD Codes: R94.5 - Abnormal results of liver function studies SNOMED: 432372266 (21) Probable sepsis ICD Codes: A41.9 - Sepsis, unspecified organism SNOMED: 822396401 (2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 ICD 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
--- NOTE | 2019-01-23 15:20 | NUR ---
CASE MANAGEMENT:REVIEW 73 YR OLD MALE BIBA FROM [facility] CC: INCREASED LETHARGY SI: SEPSIS. PNEUMONIA 97.8 105 36 136/75 96% ON TRACH COLLAR WBC+20.2 H/H-8.3/24.8 NA-129 IS: PLACED ON VENTILATOR SUPPORT 1L NS BOLUS IV LEVAQUIN CHEST XRAY URINE CX BLOOD CX : TO STEP DOWN UNIT INTERQUAL CRITERIA MET
[2019-01-23 16:00] VITALS: BP 135/69
[2019-01-23] MEDS ORDERED: Tubing IV Secondary IV ONE (17:54)
[2019-01-23] MEDS ORDERED: NS 275ml ONE (17:54)
[2019-01-23] MEDS ORDERED: D5W 275ml ONE (17:54)
[2019-01-23] MEDS ORDERED: Sterile Water Irrig 1000ml IRRIG ONE (17:54)
--- NOTE | 2019-01-23 18:00 | NUR ---
NURSE NOTES: WEIGHT OBTAINED 125.7LBS.
--- NOTE | 2019-01-23 19:11 | NUR ---
HAND-OFF: Report given to Lilian Villanueva RN.
--- NOTE | 2019-01-23 19:12 | NUR ---
NURSE NOTES: Received bedside report from LALA Marroquin.PAtient stable,no s/s of pain,no respiratory distress at this time, ST on registered nurse cardiac,open eyes,trach-vent Portex 7 AC 12 TV 500 FiO2 40% PEEP 5 tolerated setting well,GT running with Vital AF 1.2 x 24 hrs ,goal is 65ml/hr,running 35 ml/hr at this moment,f/cath for retention,IV asymptomatic,intact on L EJ G 20 running with NS,bed secured in a low safety position,call light within a reach,will continue to monitor and follow POC.
[2019-01-23] MEDS ORDERED: NORCO 5-325 TA1 EACH GT (19:52)
[2019-01-23 20:00] VITALS: BP 146/57
[2019-01-23] MEDS: Heparin 5000 units/ml inj SUBQ SCH (20:19)
[2019-01-24] VITALS: BP 137/65
[2019-01-24] MEDS: Albuterol/Ipratropium 3ml neb HHN SCH ×4 (01:09→19:55)
--- NOTE | 2019-01-24 02:30 | Consultation ---
DATE OF CONSULTATION: 01/22/2019 CARDIOLOGY CONSULT CONSULTING PHYSICIAN: Jones Arauz M.D. REQUESTING PHYSICIAN: Jarrod Vásquez M.D. REASON FOR CONSULTATION: Tachycardia in the setting of acute respiratory insufficiency. HISTORY OF PRESENT ILLNESS: This is a 73-year-old male with ventilator-dependent respiratory failure. He was noted by family members to be altered and being described as more lethargic than usual. He has not had any other constitutional symptoms noted by halfway staff. He was sent to the emergency room for evaluation. I have been asked to assist with cardiovascular care. PAST MEDICAL HISTORY: Respiratory failure, hypertension, chronic obstructive pulmonary disease, history of tuberculosis, recurring aspiration and pneumonia, cerebrovascular disease with history of CVA, seizure disorder, dysphagia with G-tube. ALLERGIES: None. MEDICATIONS: Reviewed and reconciled. FAMILY HISTORY: Noncontributory. SOCIAL HISTORY: Not available at this time. PHYSICAL EXAMINATION: VITAL SIGNS: Blood pressure 109/67, pulse 120, respiratory rate 38, and afebrile. GENERAL: Thin trach secretions. LUNGS: Bilateral rhonchi. HEART: Regular rhythm. Rapid rate. Normal S1 and S2. ABDOMEN: Soft. G-tube intact. EXTREMITIES: No edema. LABORATORY DATA: Chest x-ray with bilateral infiltrates and possible edema. White count 20 and hemoglobin 8.3. Sodium 129, potassium 3.9, chloride 92, bicarb 31, BUN 29, creatinine 0.4, albumin 1.4, troponin 0, and lactic acid 0.6. ABG, 7.44, 43, 127. Urinalysis with too numerous to count white cells. EKG, sinus tachycardia with nonspecific ST change. IMPRESSION: 1. Urinary tract infection. 2. Sepsis. 3. Hypovolemia. 4. Hyponatremia. 5. Acute renal insufficiency. 6. Secondary sinus tachycardia. 7. Acute respiratory insufficiency. 8. Seizure disorder. 9. History of tuberculosis. 10. Severe protein-calorie malnutrition. 11. Ventilator-dependent respiratory failure PLAN: 1. Ventilator support. 2. Respiratory hygiene. 3. Panculture. 4. Broad-spectrum antibiotics. 5. Reassess for tuberculosis therapy. 6. Cautious hydration with isotonic saline. 7. Monitor electrolytes and cardiorenal parameters. 8. Nutritional support by feeding tube. Jones Arauz M.D. DR: MAURIZIO JOB#: [id number] CC:
[2019-01-24 04:00] VITALS: BP 147/68
[2019-01-24] MEDS: Vancomycin 1gm/D5W 275ml IVPB SCH ×2 (04:29)
[2019-01-24] MEDS: Acetaminophen 650mg/20.3ml NG PRN (05:31)
[2019-01-24] MEDS: HYDROcodone/Acetamin 10/325 tab ORAL PRN ×3 (05:32→21:04)
[2019-01-24] MEDS: Piperacillin/Tazobactam 3.375 GM in NS 110 ML IVPB SCH ×3 (05:32→21:05)
--- NOTE | 2019-01-24 07:03 | NUR ---
HAND-OFF: Report given to LALA Marroquin.Patient stable.
--- NOTE | 2019-01-24 07:04 | NUR ---
NURSE NOTES: RECEIVED PATIENT FROM Lilian SCHMITZ RN. PATIENT IS SEEN LYING IN BED, ASLEEP, NONVERBAL BUT ABLE TO OPEN EYES BUT DOESN'T TRACK. HOOKED TO SPINNER CAP FRAME. TRACH TO VENT. PORTEX 7, AC 12, TV 500, FiO2 40%, PEEP 5. NO SIGNS OF DISTRESS. GT IN PLACE. WITH SANCHEZ CONNECTED TO BAG, DRAINING URINE. SKIN ALTERATION NOTED. ON QUARTET MATTRESS. . CALL LIGHT WITHIN REACH, SIDE RAILS UP. BED AT LOWEST POSITION. WILL CONTINUE TO MONITOR.
[2019-01-24 08:00] VITALS: BP 144/65
[2019-01-24] MEDS: levETIRAcetam 500mg/5ml Liquid GT SCH ×2 (08:36→20:41)
[2019-01-24] MEDS: Ascorbic Acid 500mg tab GT SCH ×2 (08:36→17:27)
[2019-01-24] MEDS: Dakin's 0.125% Soln (Quarter Strength) 16oz TOPIC SCH (08:37)
[2019-01-24] MEDS: Heparin 5000 units/ml inj SUBQ SCH ×2 (08:38→20:41)
--- NOTE | 2019-01-24 11:48 | Pulmonology Progress Note ---
Assessment/Plan Assessment/Plan ASSESSMENT: toxic metabolic encephalopathy, history of stroke, chronic respiratory failure, hyponatremia, acute on chronic renal failure, chronic encephalopathy, seizure disorder, pulmonary tuberculosis, and anemia possible sepsis, leukocytosis PLAN care noted IV antibiotics respiratory care Ventilatory support- no wean SNF meds supportive care as is suction oxygen therapy prognosis poor all cultures and strategic consultant notes reviewed impression, plan, and exam edited and reviewed in detail care discussed with RN Subjective ROS Limited/Unobtainable: Yes Allergies: Coded Allergies: No Known Allergies (Unverified , 01/27/17) Subjective on vent poor loc Objective Last 24 Hour Vital Signs Date Time Temp Pulse Resp B/P (MAP) Pulse Ox O2 Delivery O2 Flow Rate FiO2 01/24/19 11:21 132 32 40 01/24/19 09:39 119 34 40 01/24/19 08:19 109 20 100 Mechanical Ventilator 01/24/19 08:09 109 27 97 Mechanical Ventilator 40 01/24/19 08:04 109 31 40 01/24/19 08:00 97.5 109 18 144/65 (91) 100 01/24/19 08:00 Mechanical Ventilator 01/24/19 08:00 40 01/24/19 07:46 112 01/24/19 06:01 100.0 01/24/19 05:15 114 32 40 01/24/19 04:00 100.9 115 27 147/68 (94) 100 01/24/19 04:00 40 01/24/19 04:00 Mechanical Ventilator 01/24/19 03:35 115 01/24/19 03:02 113 29 40 01/24/19 01:19 114 24 100 Mechanical Ventilator 01/24/19 01:09 111 27 40 01/24/19 01:09 111 27 100 Mechanical Ventilator 40 01/24/19 00:00 Mechanical Ventilator 01/24/19 00:00 98.2 113 30 137/65 (89) 100 01/24/19 00:00 40 01/23/19 23:39 111 01/23/19 23:21 112 29 40 01/23/19 20:51 116 26 40 01/23/19 20:00 97.9 119 27 146/57 (86) 100 01/23/19 20:00 Mechanical Ventilator 01/23/19 20:00 40 01/23/19 19:28 118 01/23/19 19:23 119 23 100 Mechanical Ventilator 01/23/19 19:13 113 24 100 Mechanical Ventilator 40 01/23/19 19:13 112 24 40 01/23/19 19:13 113 23 100 Mechanical Ventilator 40 01/23/19 17:00 89 36 40 01/23/19 16:00 88 01/23/19 16:00 Mechanical Ventilator 01/23/19 16:00 40 01/23/19 16:00 99.5 102 28 135/69 (91) 100 01/23/19 15:12 84 24 40 01/23/19 13:00 89 26 40 01/23/19 12:00 97 01/23/19 12:00 98.8 93 24 100/60 (73) 100 01/23/19 12:00 Mechanical Ventilator 01/23/19 12:00 40 Intake and Output 01/23/19 01/24/19 19:00 07:00 Intake Total 730 ml 1782.5 ml Output Total 350 ml 500 ml Balance 380 ml 1282.5 ml Free Water 200 ml 300 ml IV Total 250 ml 947.5 ml Tube Feeding 280 ml 535 ml Output Urine Total 350 ml 500 ml Objective GENERAL APPEARANCE: The patient is a chronically ill-appearing male, in no apparent distress. unresponsive. NECK: Supple. Trach site is clean, dry, and intact. CARDS: RRR without MRG LUNGS: occasional rhonchi. moderate air entry; no wheeze ABDOMEN: Soft, nontender, and nondistended. GT EXTREMITIES: No clubbing or cyanosis. reduced skin turgor multiple decubitus NEURO: obtunded Microbiology Date/Time Source Procedure Growth Status 01/22/19 21:45 Blood Blood Culture - Preliminary NO GROWTH AFTER 24 HOURS Resulted 01/22/19 21:40 Blood Blood Culture - Preliminary NO GROWTH AFTER 24 HOURS Resulted 01/22/19 22:15 Wound Gram Stain - Final Resulted 01/22/19 22:15 Wound Wound Culture Pending Resulted 01/23/19 05:20 Sputum Gram Stain Pending Resulted 01/23/19 05:20 Sputum Culture - Preliminary Gram Negative Bacillus 1 Resulted 01/22/19 22:15 Urine,Clean Catch Urine Culture - Preliminary Gram Negative Gildardo Resulted 01/22/19 22:15 Rectum Received Current Medications Medications (Trade) Dose Ordered Sig/Iram Route PRN Reason Start Time Stop Time Status Last Admin Dose Admin Acetaminophen (Tylenol) 650 mg Q4H PRN NG fever 01/23/19 10:21 02/22/19 10:20 01/24/19 05:31 Acetaminophen/ Hydrocodone Bitart (Herculaneum ) 1 tab Q4H PRN ORAL For Pain 01/23/19 15:45 01/30/19 15:44 01/24/19 11:32 Albuterol/ Ipratropium (Albuterol/ Ipratropium) 3 ml Q6HRT HHN 01/23/19 13:00 01/28/19 12:59 01/24/19 08:18 Ascorbic Acid (Vitamin C) 500 mg BID GT 01/23/19 11:00 02/22/19 10:59 01/24/19 08:36 Famotidine (Pepcid) 20 mg BID GT 01/23/19 10:21 02/22/19 10:20 01/24/19 08:36 Heparin Sodium (Porcine) (Heparin 5000 units/ml) 5,000 units EVERY 12 HOURS SUBQ 01/23/19 21:00 02/22/19 20:59 01/24/19 08:38 Levetiracetam (Keppra) 750 mg Q12HR GT 01/23/19 10:21 02/22/19 10:20 01/24/19 08:36 Piperacillin Sod/ Tazobactam Sod 3.375 gm/Sodium Chloride 110 ml @ 27.5 mls/hr EVERY 8 HOURS IVPB 01/23/19 06:00 01/28/19 05:59 01/24/19 05:32 Sodium Hypochlorite (Dakin's Quarter Strength) 1 applic Q12HR TOPIC 01/23/19 11:30 02/22/19 11:29 01/24/19 08:37 Sodium Chloride 1,000 ml @ 125 mls/hr Q8H IV 01/23/19 03:30 02/22/19 03:29 01/24/19 11:33 Vancomycin HCl (Vanco rx to dose) 1 ea DAILY PRN MISC Per rx protocol 01/23/19 02:45 02/22/19 02:44 Vancomycin HCl 1 gm/Dextrose 275 ml @ 183.708 mls/hr Q24H IVPB 01/23/19 04:00 01/28/19 03:59 01/24/19 04:29 Nakul Cisse MD Jan 24, 2019 11:48
[2019-01-24 12:00] VITALS: BP 152/76
[2019-01-24 16:00] VITALS: BP 158/75
--- NOTE | 2019-01-24 16:47 | Surgery Progress Note ---
Surgery Progress Note Objective Last 24 Hour Vital Signs Date Time Temp Pulse Resp B/P (MAP) Pulse Ox O2 Delivery O2 Flow Rate FiO2 01/24/19 16:00 40 01/24/19 16:00 122 01/24/19 16:00 Mechanical Ventilator 01/24/19 16:00 99.0 120 20 158/75 (102) 100 01/24/19 15:36 128 34 40 01/24/19 13:01 115 14 100 Mechanical Ventilator 40 01/24/19 12:49 117 31 100 Mechanical Ventilator 40 01/24/19 12:48 117 28 40 01/24/19 12:00 98.7 129 20 152/76 (101) 100 01/24/19 12:00 40 01/24/19 12:00 Mechanical Ventilator 01/24/19 11:50 129 01/24/19 11:21 132 32 40 01/24/19 09:39 119 34 40 01/24/19 08:19 109 20 100 Mechanical Ventilator 01/24/19 08:09 109 27 97 Mechanical Ventilator 40 01/24/19 08:04 109 31 40 01/24/19 08:00 97.5 109 18 144/65 (91) 100 01/24/19 08:00 Mechanical Ventilator 01/24/19 08:00 40 01/24/19 07:46 112 01/24/19 06:01 100.0 01/24/19 05:15 114 32 40 01/24/19 04:00 100.9 115 27 147/68 (94) 100 01/24/19 04:00 40 01/24/19 04:00 Mechanical Ventilator 01/24/19 03:35 115 01/24/19 03:02 113 29 40 01/24/19 01:19 114 24 100 Mechanical Ventilator 01/24/19 01:09 111 27 40 01/24/19 01:09 111 27 100 Mechanical Ventilator 40 01/24/19 00:00 Mechanical Ventilator 01/24/19 00:00 98.2 113 30 137/65 (89) 100 01/24/19 00:00 40 01/23/19 23:39 111 01/23/19 23:21 112 29 40 01/23/19 20:51 116 26 40 01/23/19 20:00 97.9 119 27 146/57 (86) 100 01/23/19 20:00 Mechanical Ventilator 01/23/19 20:00 40 01/23/19 19:28 118 01/23/19 19:23 119 23 100 Mechanical Ventilator 01/23/19 19:13 113 24 100 Mechanical Ventilator 40 01/23/19 19:13 112 24 40 01/23/19 19:13 113 23 100 Mechanical Ventilator 40 01/23/19 17:00 89 36 40 I&O Intake and Output 01/23/19 01/24/19 19:00 07:00 Intake Total 730 ml 1907.5 ml Output Total 350 ml 500 ml Balance 380 ml 1407.5 ml Free Water 200 ml 300 ml IV Total 250 ml 1072.5 ml Tube Feeding 280 ml 535 ml Output Urine Total 350 ml 500 ml Dressing: saturated Wound: other Drains: other Cardiovascular: RSR Respiratory: decreased breath sounds Abdomen: soft, present bowel sounds, other, non-distended Extremities: other Plan Problems: (1) HCAP (healthcare-associated pneumonia) (2) Decubitus ulcer Assessment & Plan: Pt presented on admission with multiple pressure injuries. Resolving pressure injury L occipital. Dry pink epithelial noted. Skin assessed under trach collar and no areas of concerns noted . R and L ears dry . Full thickness pressure injury with undermining thoracic spine . Base of wound 75% granular with 25% fibrinous slough. Mild odor noted.(L)8.5cm x (W)6.5cmx(D) 1cm, undermining clockwise 6-1 by 3cm @12o'clock. Full thickness pressure injury L trochanter. 100% mixed necrosis/slough at base of wound and undermined borders.Non-blanchable erythema with induration noted periwound. Mild odor noted .(L)3.5cm x (W)4.5cm. Resolving DTPI L ischium .Centrally wound is red and fluctuant .Bone is palpable. Black with red tinged indurated borders noted. (L) (L)4.4cm x (W) 3.2cm. Ful thickness pressure injury R Iliac with 10% velazquez slough centrally.90% granular.Edges adherent and flat. (L)3cm x (W)3.2cm x(D)0.2cm. No odor or exudate noted.Darker skin tone without fluctuance noted periwound. Full thickness pressure injury with undermining R trochanter. Base of wound 60^ beefy red with 40% velazquez slough.erythejma noted along borders. Small amt seropurulent exudate that is mildly odorous.(L)5.5cm x (W)6.6cm x (D)1.5cm, undermining clockwise 12-12 by 4.5cm @3o'clock. Full thickness pressure injury R ischium (L)4.2cm x (W)5.5cm x(D)1.6cm, undermining 12-12 by 1.8cm @12o'clock .Base of wound 60% granular ,40% velazquez slough undermined borders.Wound has mild odor with small amt seropurulent exudate.darker skin tone that is indurated periwound. Resolving pressure injury sacrum . Base of wound dry with pink epithelial.with scattered shearing within base of wound. L heel boggy with non-blanchable erythema. DTPI R heel and Lateral aspect .Base of wound is maroon with fluctuance. (L) 4.5cm x (W)7.3cm. Tx.Plan. Cleanse wounds Thoracic and lumbar spine with Dakin's 0.125% segun. Pack with Dakin's moist gauze. Apply Moisture Barrier Paste periwound. Cover each wound with Optifoam drsg.Twice Daily and prn. Cleanse wound L trochanter and L ischium with Dakin's 0.125% segun. Pack with Dakin's moist Gauze.Apply Moisture Barrier paste periwound. Cover with Optifoam drsg. Twice daily and prn. Cleanse wounds R iliac ,R trochanter,R ischium with Dakin's 0.125% segun. Pack with Dakin's moist gauze. Apply Moisture Barrier Paste periwound. Cover with Optifoam drsg Twice daily and prn. Apply Moisture Barrier paste to sacrum. Cover with Optifoam drsg. Change every 3 days and prn. Apply Cavilon Skin Barrier to Both heels. Cover each heel with Optifoam drsg. Change every 7 days and prn. Air Fluidized Mattress. Reposition at least every 2hours or as tolerated. Off-load heels with pillow. (3) Anemia (4) UTI (urinary tract infection), bacterial (5) Toxic metabolic encephalopathy (6) Dementia (7) Dyspnea (8) Respiratory distress (9) Hyperlipidemia (10) Aspiration pneumonia (11) Aspiration pneumonia (12) Vitamin B 12 deficiency (13) Encephalopathy (14) Sepsis Assessment & Plan: Pending further work up cont with IV fluids Cont with IV abx as per ID CXR noted labs noted pending micro (15) Pneumonia (16) Status epilepticus (17) HTN (hypertension) (18) Encephalopathy acute (19) BPH (benign prostatic hyperplasia) (20) Abnormal LFTs (21) Probable sepsis (2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 (23) Zev Mchugh Jan 24, 2019 16:47
[2019-01-24] MEDS ORDERED: Dakin's 0.125% Soln (Quarter Strength) 16oz TOPIC SCH (18:00)
--- NOTE | 2019-01-24 19:16 | NUR ---
HAND-OFF: Report given to Daniella Cary RN.
--- NOTE | 2019-01-24 19:17 | NUR ---
NURSE NOTES: Report received from LALA Marroquin. Observed pt lying on the bed, awake, open-eyes, but non-verbal. ST on the monitor worker with HR of 105 noted. Trach to vent AC 12, TV 500, FIO2 40%, PEEP 5, tolerating well. GT site intact and running Vital AF at 65cc/hr. F/C intact and draining well. IV on L EJ, 20G, intact and patent. Bed in the lowest position. Side rails padded and up x3. Will continue to monitor.
--- NOTE | 2019-01-24 19:32 | Cardiology Report ---
APPROVED REPORT EKG Measurement Heart [id number] Sinus tachycardia Right atrial enlargement Voltage criteria for left ventricular hypertrophy Nonspecific T wave abnormality Abnormal ECG
--- NOTE | 2019-01-24 19:55 | NUR ---
RESPIRATORY NOTE: PT RECEIVED STABLE ON CMV WITH CURRENT SETTINGS. AC/VC 12, 500, 40%, +5. ALARMS ARE ON AND AUDIBLE. AIRWAY IS MIDLINE, SECURE AND PATENT. VENT CIRCUIT AND SX TUBING ARE SECURE AND OUT OF THE WAY. NO S/S OF RESPIRATORY DISTRESS NOTED AT THIS TIME. WILL CONTINUE TO MONITOR.
[2019-01-24 20:00] VITALS: BP 158/79
[2019-01-25] VITALS: BP 151/72
[2019-01-25] MEDS: Albuterol/Ipratropium 3ml neb HHN SCH ×4 (01:12→19:24)
--- NOTE | 2019-01-25 02:00 | NUR ---
NURSE NOTES: Observed pt sleeping on the bed. Tolerating well with current vent setting. SR with press writer. No acute distress noted at this time. Bed bath given. Oral care given. Will continue to monitor.
--- NOTE | 2019-01-25 03:04 | NUR ---
HAND-OFF: Report given to LALA Rizvi. No acute distress noted at this time.
--- NOTE | 2019-01-25 03:05 | NUR ---
NURSE NOTES: Received patient from LALA Joy. Patient is asleep a and receiving oxygen via trach to vent, settings AC 12, TV 500, FiO2 40% PEEP 5. Gtube is patent and receiving Vital AF at 65cc/hr. IV site is Left external jugular 20g, patent and asymptomatic receiving NS 1000ml at 125cc/hr. Bed is locked, placed in lowest position, side rails up x3, bed alarm on. Will continue to monitor.
[2019-01-25] MEDS: Vancomycin 1gm/D5W 275ml IVPB SCH ×2 (03:50)
[2019-01-25 04:00] VITALS: BP 157/82
--- NOTE | 2019-01-25 05:00 | Progress Note ---
DATE: 01/24/2019 CARDIOLOGY AND INTERNAL MEDICINE PROGRESS NOTE SUBJECTIVE: The patient remains on ventilator support. Moderate secretions noted. Monitored rhythm remains sinus tachycardia. OBJECTIVE: VITAL SIGNS: Blood pressure 144/65, pulse 109, respirations 18, afebrile, and T-max 100.9. LUNGS: Bilateral breath sounds. Rhonchi rales. HEART: Regular rhythm and rate. Normal S1 and S2. ABDOMEN: Soft. G-tube intact. EXTREMITIES: No edema. IMPRESSION: 1. History of tuberculosis. 2. Healthcare-acquired pneumonia. 3. Toxic and metabolic encephalopathies. 4. Ventilator-dependent respiratory failure. 5. Secondary sinus tachycardia. PLAN: 1. Recheck lab studies. 2. Continue saline hydration. 3. Restart tuberculosis therapy. 4. Await final culture results. 5. Nutrition by feeding tube. 6. Restart beta-cr. Jones Arauz M.D. DR: ROBYN JOB#: [id number] CC:
--- NOTE | 2019-01-25 05:20 | NUR ---
RESPIRATORY NOTE: PT REMAINED STABLE ON CMV WITH CURRENT SETTINGS. SXN'D PRN WITH NO ADVERSE REACTION. AIRWAY SECURE AND PATENT. VENT CIRCUIT AND SX TUBING ARE SECURE AND OUT OF THE WAY. NO S/S OF RESPIRATORY DISTRESS NOTED AT THIS TIME.
[2019-01-25] MEDS: Piperacillin/Tazobactam 3.375 GM in NS 110 ML IVPB SCH ×3 (06:03→21:06)
[2019-01-25 06:33] LABS: BASOPHILS % (AUTO) 0.3 % (0.0-2.0); EOSINOPHILS % (AUTO) 2.4 % (0.0-3.0); HEMATOCRIT 26.4 % (42.0-52.0); HEMOGLOBIN 8.1 G/DL (14.2-18.0); LYMPHOCYTES % (AUTO) 6.2 % (20.0-45.0); MEAN CORPUSCULAR VOLUME 86 FL (80-99); MONOCYTES % (AUTO) 8.5 % (1.0-10.0); NEUTROPHILS % (AUTO) 82.5 % (45.0-75.0); PLATELET COUNT 323 K/UL (150-450); RED BLOOD COUNT 3.08 M/UL (4.70-6.10); RED CELL DISTRIBUTION WIDTH 21.3 % (11.6-14.8); WHITE BLOOD COUNT 13.8 K/UL (4.8-10.8)
--- NOTE | 2019-01-25 07:00 | NUR ---
RESPIRATORY NOTE: Received pt on AC 12-500ml-40%-peep of 5. Pt is trach dependent with cuffed, Portex 7.0. Breathing Tx given without any adverse reactions. Jordan B/S rhonchi hear upon auscultation, tracheal suctioned large amounts of thick yellow green secretions without incidents. Pt is resting comfortably in the bed, no SOB or resp distress noted at this time. Vent is plugged into the red outlet, alarms are set and audible, ambu bag and spare trach kit at bed side. Vent circuits and sxn tubes are patent, secured and out of way. Will continue to monitor pt .
[2019-01-25 07:08] LABS: ALANINE AMINOTRANSFERASE 10 U/L (12-78); ALBUMIN 1.2 G/DL (3.4-5.0); ALBUMIN/GLOBULIN RATIO 0.2 (1.0-2.7); ALKALINE PHOSPHATASE 499 U/L (46-116); ANION GAP 12 mmol/L (5-15); ASPARTATE AMINO TRANSFERASE 31 U/L (15-37); BILIRUBIN,TOTAL 0.8 MG/DL (0.2-1.0); BLOOD UREA NITROGEN 18 mg/dL (7-18); CALCIUM 9.3 MG/DL (8.5-10.1); CARBON DIOXIDE 25 MMOL/L (21-32); CHLORIDE 107 MMOL/L (98-107); CREATININE 0.6 MG/DL (0.55-1.30); POTASSIUM 3.5 MMOL/L (3.5-5.1); SODIUM 144 MMOL/L (136-145)
--- NOTE | 2019-01-25 07:14 | NUR ---
HAND-OFF: Report given to Sylvia REEVES. Patient in stable condition.
--- NOTE | 2019-01-25 07:31 | NUR ---
NURSE NOTES: received patient report from kevin rn. patient is on bed asleep.not in acute distress. no arrythmias reported during the night. noted that patient is on vent at prescribed rate. will follow plan of care.
[2019-01-25 08:00] VITALS: BP 169/94
[2019-01-25] MEDS: Ascorbic Acid 500mg tab GT SCH ×2 (08:08→17:02)
[2019-01-25] MEDS: Metoprolol Tartrate 50mg tab GT SCH ×2 (08:09→21:06)
[2019-01-25] MEDS: levETIRAcetam 500mg/5ml Liquid GT SCH ×2 (08:09→21:07)
[2019-01-25] MEDS: Heparin 5000 units/ml inj SUBQ SCH ×2 (08:11→21:06)
[2019-01-25] MEDS: Acetaminophen 650mg/20.3ml NG PRN (08:14)
[2019-01-25] MEDS: Dakin's 0.125% Soln (Quarter Strength) 16oz TOPIC SCH (08:14)
[2019-01-25] MEDS ORDERED: Isoniazid 300mg tab GT SCH (09:00)
--- NOTE | 2019-01-25 10:36 | NUR ---
NURSE NOTES: left a message to dr mcdaniels regarding acinetobacter organism, a call that was received from the pharmacist. awaits callback and new order as of this time.
--- NOTE | 2019-01-25 11:19 | Cardiology Report ---
APPROVED REPORT EXAM: Two-dimensional and M-mode echocardiogram with Doppler and color Doppler. INDICATION Congestive Heart Failure M-Mode DIMENSIONS IVSd1.4 (0.7-1.1cm)Left Atrium (MM)4.4 (1.6-4.0cm) LVDd4.1 (3.5-5.6cm)Aortic Root2.3 (2.0-3.7cm) PWd1.6 (0.7-1.1cm)Aortic Cusp Exc.1.3 (1.5-2.0cm) LVDs2.0 (2.5-4.0cm) PWs2.5 cm Technically difficult and limited study due to patient on ventilator and contracted. All images obtained from subcostal view. Study quality precludes accurate assessment of regional wall motion. Normal left ventricular chamber size, systolic function and wall motion to extent visualized. Left ventricular ejection fraction estimated to be 55 %. Mild left ventricular hypertrophy. No evidence of pericardial effusion. All other cardiac chamber sizes are within normal limits. Focal aortic valve sclerosis with adequate cusp excursion. Thickened mitral valve leaflets with normal excursion. Mild mitral annulus and aortic root calcification. Pulmonic valve visualized. Normal tricuspid valve structure. IVC is normal in size with partial physiological collapse. A color flow and spectral Doppler study was performed and revealed: No aortic regurgitation. Mild mitral regurgitation. Mitral diastolic velocities suggest mild left ventricular diastolic dysfunction (Grade I). Mild tricuspid regurgitation. Tricuspid systolic velocities suggests peak right ventricular systolic pressure of 68 mmHg, consistent with severe pulmonary hypertension.
[2019-01-25 12:00] VITALS: BP 154/68
--- NOTE | 2019-01-25 12:00 | Pulmonology Progress Note ---
Assessment/Plan Assessment/Plan ASSESSMENT: toxic metabolic encephalopathy, history of stroke, chronic respiratory failure, hyponatremia, acute on chronic renal failure, chronic encephalopathy, seizure disorder, pulmonary tuberculosis, and anemia possible sepsis, leukocytosis PLAN care noted TB meds IV antibiotics respiratory care Ventilatory support- no wean SNF meds supportive care as is suction oxygen therapy prognosis poor overall all cultures and performance improvement consultant notes reviewed impression, plan, and exam edited and reviewed in detail care discussed with RN Subjective ROS Limited/Unobtainable: Yes Allergies: Coded Allergies: No Known Allergies (Unverified , 01/27/17) Subjective on vent poor loc Objective Last 24 Hour Vital Signs Date Time Temp Pulse Resp B/P (MAP) Pulse Ox O2 Delivery O2 Flow Rate FiO2 01/25/19 10:53 85 24 40 01/25/19 08:44 97.9 01/25/19 08:36 94 26 40 01/25/19 08:09 116 169/84 01/25/19 08:00 40 01/25/19 08:00 100.5 116 28 169/94 (119) 100 01/25/19 08:00 Mechanical Ventilator 01/25/19 08:00 120 01/25/19 07:00 99 26 100 Mechanical Ventilator 40 01/25/19 07:00 99 26 40 01/25/19 06:50 101 32 100 Mechanical Ventilator 40 01/25/19 05:19 96 26 40 01/25/19 04:00 Mechanical Ventilator 01/25/19 04:00 97.9 94 18 157/82 (107) 100 01/25/19 04:00 40 01/25/19 03:33 92 01/25/19 03:23 96 33 40 01/25/19 01:19 90 19 100 Mechanical Ventilator 40 01/25/19 01:11 90 31 100 Mechanical Ventilator 40 01/25/19 01:11 90 31 40 01/25/19 00:00 40 01/25/19 00:00 Mechanical Ventilator 01/25/19 00:00 98.5 98 30 151/72 (98) 100 01/24/19 23:36 95 01/24/19 22:54 98 32 40 01/24/19 21:25 101 29 40 01/24/19 20:00 40 01/24/19 20:00 Mechanical Ventilator 01/24/19 20:00 98.1 105 25 158/79 (105) 99 01/24/19 19:55 101 28 100 Mechanical Ventilator 40 01/24/19 19:49 101 28 40 01/24/19 19:38 102 01/24/19 18:02 107 27 100 Mechanical Ventilator 40 01/24/19 16:43 119 29 40 01/24/19 16:00 40 01/24/19 16:00 122 01/24/19 16:00 Mechanical Ventilator 01/24/19 16:00 99.0 120 20 158/75 (102) 100 01/24/19 15:36 128 34 40 01/24/19 13:01 115 14 100 Mechanical Ventilator 40 01/24/19 12:49 117 31 100 Mechanical Ventilator 40 01/24/19 12:48 117 28 40 Intake and Output 01/24/19 01/25/19 19:00 07:00 Intake Total 2732.85 ml 2274.225 ml Output Total 750 ml 750 ml Balance 1982.85 ml 1524.225 ml Free Water 300 ml 100 ml IV Total 1647.85 ml 1434.225 ml Tube Feeding 785 ml 740 ml Output Urine Total 750 ml 750 ml Objective GENERAL APPEARANCE: The patient is a chronically ill-appearing male, in no apparent distress. unresponsive. NECK: Supple. Trach site is clean, dry, and intact. CARDS: RRR without MRG LUNGS: occasional rhonchi. moderate air entry; no wheeze ABDOMEN: Soft, nontender, and nondistended. GT EXTREMITIES: No clubbing or cyanosis. reduced skin turgor multiple decubitus NEURO: obtunded Microbiology Date/Time Source Procedure Growth Status 01/22/19 21:45 Blood Blood Culture - Preliminary NO GROWTH AFTER 24 HOURS Resulted 01/22/19 21:40 Blood Blood Culture - Preliminary NO GROWTH AFTER 24 HOURS Resulted 01/22/19 22:15 Wound Gram Stain - Final Resulted 01/22/19 22:15 Wound Culture - Preliminary Gram Negative Bacillus 1 Gram Negative Bacillus 2 Resulted 01/23/19 05:20 Sputum Gram Stain - Final Resulted 01/23/19 05:20 Sputum Culture - Preliminary A.baumanii Complx - Mdr Resulted 01/22/19 22:15 Nasal Nares MRSA Culture - Final Staphylococcus Aureus - Mrsa Complete 01/22/19 22:15 Urine,Clean Catch Urine Culture - Final Escherichia Coli - Esbl Complete 01/22/19 22:15 Rectum - Final NO CARBAPENEM-RESISTANT ENTEROBACTERI... Complete 01/22/19 22:15 Rectum VRE Culture - Final Enterococcus Faecium - Vre Complete Laboratory Tests 01/25/19 04:15: White Blood Count 13.8H, Red Blood Count 3.08L, Hemoglobin 8.1L, Hematocrit 26.4L, Mean Corpuscular Volume 86, Mean Corpuscular Hemoglobin 26.4L, Mean Corpuscular Hemoglobin Concent 30.8L, Red Cell Distribution Width 21.3H, Platelet Count 323, Mean Platelet Volume 4.3L, Neutrophils (%) (Auto) 82.5H, Lymphocytes (%) (Auto) 6.2L, Monocytes (%) (Auto) 8.5, Eosinophils (%) (Auto) 2.4, Basophils (%) (Auto) 0.3, Sodium Level 144, Potassium Level 3.5, Chloride Level 107, Carbon Dioxide Level 25, Anion Gap 12, Blood Urea Nitrogen 18, Creatinine 0.6, Estimat Glomerular Filtration Rate , Glucose Level 89, Calcium Level 9.3, Magnesium Level 1.9, Total Bilirubin 0.8, Aspartate Amino Transf (AST /SGOT) 31, Alanine Aminotransferase (ALT/SGPT) 10L, Alkaline Phosphatase 499H, Total Protein 7.9, Albumin 1.2L, Globulin 6.7, Albumin/Globulin Ratio 0.2L Current Medications Medications (Trade) Dose Ordered Sig/Iram Route PRN Reason Start Time Stop Time Status Last Admin Dose Admin Acetaminophen (Tylenol) 650 mg Q4H PRN NG fever 01/23/19 10:21 02/22/19 10:20 01/25/19 08:14 Acetaminophen/ Hydrocodone Bitart ([place] 10/325) 1 tab Q4H PRN ORAL For Pain 01/23/19 15:45 01/30/19 15:44 01/24/19 21:04 Albuterol/ Ipratropium (Albuterol/ Ipratropium) 3 ml Q6HRT HHN 01/23/19 13:00 01/28/19 12:59 01/25/19 06:50 Ascorbic Acid (Vitamin C) 500 mg BID GT 01/23/19 11:00 02/22/19 10:59 01/25/19 08:08 Famotidine (Pepcid) 20 mg BID GT 01/23/19 10:21 02/22/19 10:20 01/25/19 08:08 Heparin Sodium (Porcine) (Heparin 5000 units/ml) 5,000 units EVERY 12 HOURS SUBQ 01/23/19 21:00 02/22/19 20:59 01/25/19 08:11 Isoniazid (Inh) 300 mg DAILY GT 01/25/19 09:00 02/24/19 08:59 01/25/19 08:09 Levetiracetam (Keppra) 750 mg Q12HR GT 01/23/19 10:21 02/22/19 10:20 01/25/19 08:09 Metoprolol Tartrate (Lopressor) 50 mg Q12HR GT 01/25/19 09:00 02/24/19 08:59 01/25/19 08:09 Piperacillin Sod/ Tazobactam Sod 3.375 gm/Sodium Chloride 110 ml @ 27.5 mls/hr EVERY 8 HOURS IVPB 01/23/19 06:00 01/28/19 05:59 01/25/19 06:03 Pyrazinamide (Pza) 1,000 mg DAILY ORAL 01/25/19 09:00 02/24/19 08:59 01/25/19 08:18 Rifampin (Rifadin) 600 mg DAILY GT 01/25/19 09:00 02/24/19 08:59 01/25/19 08:08 Sodium Hypochlorite (Dakin's Quarter Strength) 1 applic DAILY TOPIC 01/25/19 09:00 02/23/19 17:59 01/25/19 08:14 Sodium Chloride 1,000 ml @ 125 mls/hr Q8H IV 01/23/19 03:30 02/22/19 03:29 01/25/19 10:57 Vancomycin HCl (Vanco rx to dose) 1 ea DAILY PRN MISC Per rx protocol 01/23/19 02:45 02/22/19 02:44 Vancomycin HCl 1 gm/Dextrose 275 ml @ 183.708 mls/hr Q24H IVPB 01/23/19 04:00 01/28/19 03:59 01/25/19 03:50 Nakul Cisse MD Jan 25, 2019 12:00
--- NOTE | 2019-01-25 13:25 | Surgery Progress Note ---
Surgery Progress Note Subjective Additional Comments No acute overnight events. Leukocytosis improved. Exam stable though declined as compared to prior visits. Objective Last 24 Hour Vital Signs Date Time Temp Pulse Resp B/P (MAP) Pulse Ox O2 Delivery O2 Flow Rate FiO2 01/25/19 13:23 95 25 40 01/25/19 13:23 95 25 100 Mechanical Ventilator 40 01/25/19 13:08 90 27 100 Mechanical Ventilator 40 01/25/19 12:00 Mechanical Ventilator 01/25/19 12:00 40 01/25/19 10:53 85 24 40 01/25/19 08:44 97.9 01/25/19 08:36 94 26 40 01/25/19 08:09 116 169/84 01/25/19 08:00 40 01/25/19 08:00 100.5 116 28 169/94 (119) 100 01/25/19 08:00 Mechanical Ventilator 01/25/19 08:00 120 01/25/19 07:00 99 26 100 Mechanical Ventilator 40 01/25/19 07:00 99 26 40 01/25/19 06:50 101 32 100 Mechanical Ventilator 40 01/25/19 05:19 96 26 40 01/25/19 04:00 Mechanical Ventilator 01/25/19 04:00 97.9 94 18 157/82 (107) 100 01/25/19 04:00 40 01/25/19 03:33 92 01/25/19 03:23 96 33 40 01/25/19 01:19 90 19 100 Mechanical Ventilator 40 01/25/19 01:11 90 31 100 Mechanical Ventilator 40 01/25/19 01:11 90 31 40 01/25/19 00:00 40 01/25/19 00:00 Mechanical Ventilator 01/25/19 00:00 98.5 98 30 151/72 (98) 100 01/24/19 23:36 95 01/24/19 22:54 98 32 40 01/24/19 21:25 101 29 40 01/24/19 20:00 40 01/24/19 20:00 Mechanical Ventilator 01/24/19 20:00 98.1 105 25 158/79 (105) 99 01/24/19 19:55 101 28 100 Mechanical Ventilator 40 01/24/19 19:49 101 28 40 01/24/19 19:38 102 01/24/19 18:02 107 27 100 Mechanical Ventilator 40 01/24/19 16:43 119 29 40 01/24/19 16:00 40 01/24/19 16:00 122 01/24/19 16:00 Mechanical Ventilator 01/24/19 16:00 99.0 120 20 158/75 (102) 100 01/24/19 15:36 128 34 40 I&O Intake and Output 01/24/19 01/25/19 19:00 07:00 Intake Total 2732.85 ml 2274.225 ml Output Total 750 ml 750 ml Balance 1982.85 ml 1524.225 ml Free Water 300 ml 100 ml IV Total 1647.85 ml 1434.225 ml Tube Feeding 785 ml 740 ml Output Urine Total 750 ml 750 ml Dressing: saturated Wound: other Drains: other Cardiovascular: RSR Respiratory: decreased breath sounds Abdomen: soft, present bowel sounds, other, non-distended Extremities: other Laboratory Tests Test 01/25/19 04:15 White Blood Count 13.8 K/UL (4.8-10.8) H Red Blood Count 3.08 M/UL (4.70-6.10) L Hemoglobin 8.1 G/DL (14.2-18.0) L Hematocrit 26.4 % (42.0-52.0) L Mean Corpuscular Volume 86 FL (80-99) Mean Corpuscular Hemoglobin 26.4 PG (27.0-31.0) L Mean Corpuscular Hemoglobin Concent 30.8 G/DL (32.0-36.0) L Red Cell Distribution Width 21.3 % (11.6-14.8) H Platelet Count 323 K/UL (150-450) Mean Platelet Volume 4.3 FL (6.5-10.1) L Neutrophils (%) (Auto) 82.5 % (45.0-75.0) H Lymphocytes (%) (Auto) 6.2 % (20.0-45.0) L Monocytes (%) (Auto) 8.5 % (1.0-10.0) Eosinophils (%) (Auto) 2.4 % (0.0-3.0) Basophils (%) (Auto) 0.3 % (0.0-2.0) Sodium Level 144 MMOL/L (136-145) Potassium Level 3.5 MMOL/L (3.5-5.1) Chloride Level 107 MMOL/L (98-107) Carbon Dioxide Level 25 MMOL/L (21-32) Anion Gap 12 mmol/L (5-15) Blood Urea Nitrogen 18 mg/dL (7-18) Creatinine 0.6 MG/DL (0.55-1.30) Estimat Glomerular Filtration Rate mL/min (>60) Glucose Level 89 MG/DL (74-106) Calcium Level 9.3 MG/DL (8.5-10.1) Magnesium Level 1.9 MG/DL (1.8-2.4) Total Bilirubin 0.8 MG/DL (0.2-1.0) Aspartate Amino Transf (AST/SGOT) 31 U/L (15-37) Alanine Aminotransferase (ALT/SGPT) 10 U/L (12-78) L Alkaline Phosphatase 499 U/L (46-116) H Total Protein 7.9 G/DL (6.4-8.2) Albumin 1.2 G/DL (3.4-5.0) L Globulin 6.7 g/dL Albumin/Globulin Ratio 0.2 (1.0-2.7) L Plan Problems: (1) HCAP (healthcare-associated pneumonia) (2) Decubitus ulcer Assessment & Plan: Pt presented on admission with multiple pressure injuries. Resolving pressure injury L occipital. Dry pink epithelial noted. Skin assessed under trach collar and no areas of concerns noted . R and L ears dry . Full thickness pressure injury with undermining thoracic spine . Base of wound 75% granular with 25% fibrinous slough. Mild odor noted.(L)8.5cm x (W)6.5cmx(D) 1cm, undermining clockwise 6-1 by 3cm @12o'clock. Full thickness pressure injury L trochanter. 100% mixed necrosis/slough at base of wound and undermined borders.Non-blanchable erythema with induration noted periwound. Mild odor noted .(L)3.5cm x (W)4.5cm. Resolving DTPI L ischium .Centrally wound is red and fluctuant .Bone is palpable. Black with red tinged indurated borders noted. (L) (L)4.4cm x (W) 3.2cm. Ful thickness pressure injury R Iliac with 10% velazquez slough centrally.90% granular.Edges adherent and flat. (L)3cm x (W)3.2cm x(D)0.2cm. No odor or exudate noted.Darker skin tone without fluctuance noted periwound. Full thickness pressure injury with undermining R trochanter. Base of wound 60^ beefy red with 40% velazqeuz slough.erythejma noted along borders. Small amt seropurulent exudate that is mildly odorous.(L)5.5cm x (W)6.6cm x (D)1.5cm, undermining clockwise 12-12 by 4.5cm @3o'clock. Full thickness pressure injury R ischium (L)4.2cm x (W)5.5cm x(D)1.6cm, undermining 12-12 by 1.8cm @12o'clock .Base of wound 60% granular ,40% velazquez slough undermined borders.Wound has mild odor with small amt seropurulent exudate.darker skin tone that is indurated periwound. Resolving pressure injury sacrum . Base of wound dry with pink epithelial.with scattered shearing within base of wound. L heel boggy with non-blanchable erythema. DTPI R heel and Lateral aspect .Base of wound is maroon with fluctuance. (L) 4.5cm x (W)7.3cm. Tx.Plan. Cleanse wounds Thoracic and lumbar spine with Dakin's 0.125% segun. Pack with Dakin's moist gauze. Apply Moisture Barrier Paste periwound. Cover each wound with Optifoam drsg.Twice Daily and prn. Cleanse wound L trochanter and L ischium with Dakin's 0.125% segun. Pack with Dakin's moist Gauze.Apply Moisture Barrier paste periwound. Cover with Optifoam drsg. Twice daily and prn. Cleanse wounds R iliac ,R trochanter,R ischium with Dakin's 0.125% segun. Pack with Dakin's moist gauze. Apply Moisture Barrier Paste periwound. Cover with Optifoam drsg Twice daily and prn. Apply Moisture Barrier paste to sacrum. Cover with Optifoam drsg. Change every 3 days and prn. Apply Cavilon Skin Barrier to Both heels. Cover each heel with Optifoam drsg. Change every 7 days and prn. Air Fluidized Mattress. Reposition at least every 2hours or as tolerated. Off-load heels with pillow. (3) Anemia (4) UTI (urinary tract infection), bacterial (5) Toxic metabolic encephalopathy (6) Dementia (7) Dyspnea (8) Respiratory distress (9) Hyperlipidemia (10) Aspiration pneumonia (11) Aspiration pneumonia (12) Vitamin B 12 deficiency (13) Encephalopathy (14) Sepsis Assessment & Plan: Leukocytosis trending down. cont with IV fluids Cont with IV abx as per ID CXR noted labs noted Thank you for this consultation we will follow with recommendations (15) Pneumonia (16) Status epilepticus (17) HTN (hypertension) (18) Encephalopathy acute (19) BPH (benign prostatic hyperplasia) (20) Abnormal LFTs (21) Probable sepsis (2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 (23) Zev Mchugh Jan 25, 2019 13:25
--- NOTE | 2019-01-25 14:58 | General Progress Note ---
Assessment/Plan Problem List: (1) Decubitus ulcer ICD Codes: L89.90 - Pressure ulcer of unspecified site, unspecified stage SNOMED: 873782152 Qualifiers: Qualified Codes: L89.94 - Pressure ulcer of unspecified site, stage 4 (2) Anemia ICD Codes: D64.9 - Anemia, unspecified SNOMED: 552579839 Qualifiers: Qualified Codes: D64.9 - Anemia, unspecified (3) UTI (urinary tract infection), bacterial ICD Codes: N39.0 - Urinary tract infection, site not specified; A49.9 - Bacterial infection, unspecified SNOMED: 860502359 (4) Toxic metabolic encephalopathy ICD Codes: G92 - Toxic encephalopathy SNOMED: 077978661 (5) Aspiration pneumonia ICD Codes: J69.0 - Pneumonitis due to inhalation of food and vomit SNOMED: 816091257 (6) Encephalopathy ICD Codes: G93.40 - Encephalopathy, unspecified SNOMED: 87661409 (7) Sepsis ICD Codes: A41.9 - Sepsis, unspecified organism SNOMED: 47842812 Qualifiers: Qualified Codes: A41.9 - Sepsis, unspecified organism (8) Pneumonia ICD Codes: J18.9 - Pneumonia, unspecified organism SNOMED: 113714723 (9) Status epilepticus ICD Codes: G40.901 - Epilepsy, unspecified, not intractable, with status epilepticus SNOMED: 899104253 Status: stable Assessment/Plan: cont vent support resp rx gt feeds iv abx id eval wound care sz rx dc TB meds per dept of health Subjective ROS Limited/Unobtainable: Yes Constitutional: Reports: malaise, weakness HEENT: Reports: no symptoms Cardiovascular: Reports: no symptoms Respiratory: Reports: cough, shortness of breath Gastrointestinal/Abdominal: Reports: difficulty swallowing Genitourinary: Reports: no symptoms Neurologic/Psychiatric: Reports: pre-existing deficit, seizure Endocrine: Reports: no symptoms Hematologic/Lymphatic: Reports: anemia Allergies: Coded Allergies: No Known Allergies (Unverified , 01/27/17) All Systems: reviewed and negative except above Subjective no events. family at the bedside. feels pt doing better. multiple positive blood cultures. on the vent. poorly responsive. awake. does not track or follow commands Objective Last 24 Hour Vital Signs Date Time Temp Pulse Resp B/P (MAP) Pulse Ox O2 Delivery O2 Flow Rate FiO2 01/25/19 14:36 90 25 40 01/25/19 13:23 95 25 40 01/25/19 13:23 95 25 100 Mechanical Ventilator 40 01/25/19 13:08 90 27 100 Mechanical Ventilator 40 01/25/19 12:00 Mechanical Ventilator 01/25/19 12:00 88 01/25/19 12:00 98.2 87 25 154/68 (96) 100 01/25/19 12:00 40 01/25/19 10:53 85 24 40 01/25/19 08:44 97.9 01/25/19 08:36 94 26 40 01/25/19 08:30 97.3 01/25/19 08:09 116 169/84 01/25/19 08:00 40 01/25/19 08:00 100.5 116 28 169/94 (119) 100 01/25/19 08:00 Mechanical Ventilator 01/25/19 08:00 120 01/25/19 07:00 99 26 100 Mechanical Ventilator 40 01/25/19 07:00 99 26 40 01/25/19 06:50 101 32 100 Mechanical Ventilator 40 01/25/19 05:19 96 26 40 01/25/19 04:00 Mechanical Ventilator 01/25/19 04:00 97.9 94 18 157/82 (107) 100 01/25/19 04:00 40 01/25/19 03:33 92 01/25/19 03:23 96 33 40 01/25/19 01:19 90 19 100 Mechanical Ventilator 40 01/25/19 01:11 90 31 100 Mechanical Ventilator 40 01/25/19 01:11 90 31 40 01/25/19 00:00 40 01/25/19 00:00 Mechanical Ventilator 01/25/19 00:00 98.5 98 30 151/72 (98) 100 01/24/19 23:36 95 01/24/19 22:54 98 32 40 01/24/19 21:25 101 29 40 01/24/19 20:00 40 01/24/19 20:00 Mechanical Ventilator 01/24/19 20:00 98.1 105 25 158/79 (105) 99 01/24/19 19:55 101 28 100 Mechanical Ventilator 40 01/24/19 19:49 101 28 40 01/24/19 19:38 102 01/24/19 18:02 107 27 100 Mechanical Ventilator 40 01/24/19 16:43 119 29 40 01/24/19 16:00 40 01/24/19 16:00 122 01/24/19 16:00 Mechanical Ventilator 01/24/19 16:00 99.0 120 20 158/75 (102) 100 01/24/19 15:36 128 34 40 Intake and Output 01/24/19 01/25/19 19:00 07:00 Intake Total 2732.85 ml 2274.225 ml Output Total 750 ml 750 ml Balance 1982.85 ml 1524.225 ml Free Water 300 ml 100 ml IV Total 1647.85 ml 1434.225 ml Tube Feeding 785 ml 740 ml Output Urine Total 750 ml 750 ml Laboratory Tests 01/25/19 04:15: White Blood Count 13.8H, Red Blood Count 3.08L, Hemoglobin 8.1L, Hematocrit 26.4L, Mean Corpuscular Volume 86, Mean Corpuscular Hemoglobin 26.4L, Mean Corpuscular Hemoglobin Concent 30.8L, Red Cell Distribution Width 21.3H, Platelet Count 323, Mean Platelet Volume 4.3L, Neutrophils (%) (Auto) 82.5H, Lymphocytes (%) (Auto) 6.2L, Monocytes (%) (Auto) 8.5, Eosinophils (%) (Auto) 2.4, Basophils (%) (Auto) 0.3, Sodium Level 144, Potassium Level 3.5, Chloride Level 107, Carbon Dioxide Level 25, Anion Gap 12, Blood Urea Nitrogen 18, Creatinine 0.6, Estimat Glomerular Filtration Rate , Glucose Level 89, Calcium Level 9.3, Magnesium Level 1.9, Total Bilirubin 0.8, Aspartate Amino Transf (AST /SGOT) 31, Alanine Aminotransferase (ALT/SGPT) 10L, Alkaline Phosphatase 499H, Total Protein 7.9, Albumin 1.2L, Globulin 6.7, Albumin/Globulin Ratio 0.2L Height (Feet): 5 Height (Inches): 5.00 Weight (Pounds): 125 General Appearance: WD/WN, confused Neck: supple Cardiovascular: normal peripheral pulses, normal rate, regular rhythm Respiratory/Chest: chest wall non-tender, lungs clear, normal breath sounds, no respiratory distress Abdomen: normal bowel sounds, non tender, soft, no organomegaly Edema: no edema noted Arm (L), no edema noted Arm (R), no edema noted Leg (L), no edema noted Leg (R), no edema noted Pedal (L), no edema noted Pedal (R), no edema noted Generalized Neurologic: disoriented, unresponsive, aphasia Jarrod Vásquez MD Jan 25, 2019 14:58
[2019-01-25 16:00] VITALS: BP 150/81
[2019-01-25] MEDS ORDERED: NS 275ml ONE (16:01)
--- NOTE | 2019-01-25 19:01 | NUR ---
HAND-OFF: Report given to mely villarreal.
--- NOTE | 2019-01-25 19:10 | NUR ---
NURSE NOTES: Report received from LALA Ward. Pt lying on the bed, arousable to shaking, no signs of pain noted at this time. ST with HR of 105 noted. Trach to vent, tolerating well to the current setting, AC 12, TV 500, FIO2 40%, PEEP 5. GT site intact and running vital AF at 65cc/hr, no residual noted. Abd soft and non-tender. F/C intact and draining well, light renzo color urine noted. IV on L EJ running NS at 125cc/hr. Bed in the lowest position. Side rails padded and up x3. Will continue to monitor.
[2019-01-25 20:00] VITALS: BP 129/89
--- NOTE | 2019-01-25 23:24 | NUR ---
NURSE NOTES: Observed pt sleeping on the bed. Tolerating well current vent setting. SR on awake overnight monitor. VS WNL. No residual noted on Gtube. Reposition done with pillow supports. Oral care given. Will continue to monitor.
[2019-01-26] VITALS: BP 145/72
[2019-01-26] MEDS: Albuterol/Ipratropium 3ml neb HHN SCH ×4 (01:25→20:28)
[2019-01-26] MEDS: HYDROcodone/Acetamin 10/325 tab ORAL PRN ×3 (01:45→20:44)
[2019-01-26 04:00] VITALS: BP 155/76
--- NOTE | 2019-01-26 04:15 | Progress Note ---
DATE: 01/23/2019 CARDIOLOGY PROGRESS NOTE Late entry for 01/23/2019. SUBJECTIVE: The patient remains on ventilator support via trach. He is withdrawn and noncommunicative. He has been pancultured and started on antimicrobials since admission. His anti-TB regimen is held at this time. OBJECTIVE: VITAL SIGNS: Blood pressure is 113/56, pulse 118, respiratory rate 25, and temperature 102.3. LUNGS: Bilateral rhonchi. HEART: Regular rhythm. Rapid rate. Normal S1 and S2 with no murmur. ABDOMEN: Soft with G-tube. EXTREMITIES: No edema. LABORATORY DATA: Admission labs were reviewed. IMPRESSION: 1. Sepsis. 2. Healthcare-acquired pneumonia. 3. Pulmonary tuberculosis. 4. Secondary sinus tachycardia. 5. Anemia. 6. Chronic diastolic congestive heart failure. 7. Hypovolemia. 8. Hyponatremia. 9. Acute renal failure. 10. Metabolic and toxic encephalopathy. 11. Urinary tract infection. PLAN: 1. Continued ventilator support. 2. Saline hydration. 3. Follow up cultures. 4. Antimicrobials. 5. Cardiac monitoring. 6. Hold beta-cr until rehydrated. 7. Follow up laboratory studies. 8. The patient remains critical and guarded. Jones Arauz M.D. DR: RUSLAN JOB#: [id number] CC:
--- NOTE | 2019-01-26 04:30 | Progress Note ---
DATE: 01/25/2019 CARDIOLOGY PROGRESS NOTE SUBJECTIVE: The patient is back on anti-TB therapy. A call was received from the health department requesting therapy, although previously that had been discontinued. This will have to be resolved again on Saturday once they can be contacted ___. The patient remains on ventilator support. He has defervesced. Cultures are polymicrobial pathogen. OBJECTIVE: VITAL SIGNS: Blood pressure 150/81, pulse 85, and respiratory rate 24. LUNGS: Coarse breath sounds. Thick secretions. HEART: Regular rhythm and rate. Normal S1 and S2. ABDOMEN: Soft. G-tube intact. EXTREMITIES: Trace edema. LABORATORY DATA: Potassium 3.5, BUN 18, creatinine 0.6, sodium 144, and albumin 1.2. White count 13.8 and hemoglobin 8.1. IMPRESSION: 1. Hyponatremia, corrected. 2. Hypovolemia, resolved. 3. Severe protein-calorie malnutrition. 4. Pulmonary tuberculosis. 5. Healthcare acquired pneumonia. 6. Respiratory failure. 7. Urinary tract infection with sepsis. 8. Secondary sinus tachycardia. 9. Chronic diastolic congestive heart failure. PLAN: 1. Resolved TB therapy with [facility]. 2. Continue beta-cr. 3. Maintain antimicrobials per Infectious Disease sustainability consultant. 4. Skin care. 5. Nutrition by feeding tubes. 6. DVT and stress ulcer prophylaxis. 7. Adjust IV fluids. Jones Arauz M.D. DR: MAURIZIO JOB#: [id number] CC:
[2019-01-26] MEDS: Piperacillin/Tazobactam 3.375 GM in NS 110 ML IVPB SCH ×3 (05:14→20:47)
[2019-01-26] MEDS ORDERED: Vancomycin 1.25mg/D5W 275ml IVPB SCH ×2 (06:00)
--- NOTE | 2019-01-26 06:57 | NUR ---
RESPIRATORY NOTE: Pt received on vent settings of AC/VC 12, 500 VT, 40% FiO2, PEEP 5. Pt is trached with portex 7. Bilateral rhonchi breath sounds noted. Thick, moderate green secretions noted upon suctioning. Vent plugged into red outlet. Alarms on and audible. Ambubag present at bedside. No respiratory distress noted. Will continue to monitor pt closely.
--- NOTE | 2019-01-26 07:10 | NUR ---
HAND-OFF: Report given to LALA De Jesus. No acute distress noted at this time.
--- NOTE | 2019-01-26 07:30 | NUR ---
NURSE NOTES: Received report from LALA Joy. Patient observed in bed. Patient is nonverbal, on trach-vent with settings AC 12, TV 500, FiO2 40%, and PEEP 5. operations manager/coordinator shows sinus rhythm, no reported arrhythmias from night nurse. GT intact and patent with feeding infusing at prescribed rate. HOB elevated. Manzo catheter intact and draining well to gravity. Left EJ IV 20g intact and patent, left hand IV 20g intact and patent with IV fluids infusing at prescribed rate. Bed locked, alarmed, and in lowest position, padded side rails up x3, call light left within reach. Will continue with plan of care and monitor.
[2019-01-26 07:37] LABS: HEMATOCRIT 22.1 % (42.0-52.0); MEAN CORPUSCULAR VOLUME 86 FL (80-99); PLATELET COUNT 287 K/UL (150-450); RED BLOOD COUNT 2.58 M/UL (4.70-6.10); RED CELL DISTRIBUTION WIDTH 21.2 % (11.6-14.8); WHITE BLOOD COUNT 15.1 K/UL (4.8-10.8)
--- NOTE | 2019-01-26 07:37 | General Progress Note ---
Assessment/Plan Problem List: (1) Decubitus ulcer ICD Codes: L89.90 - Pressure ulcer of unspecified site, unspecified stage SNOMED: 372284339 Qualifiers: Qualified Codes: L89.94 - Pressure ulcer of unspecified site, stage 4 (2) Anemia ICD Codes: D64.9 - Anemia, unspecified SNOMED: 849638490 Qualifiers: Qualified Codes: D64.9 - Anemia, unspecified (3) UTI (urinary tract infection), bacterial ICD Codes: N39.0 - Urinary tract infection, site not specified; A49.9 - Bacterial infection, unspecified SNOMED: 029817166 (4) Toxic metabolic encephalopathy ICD Codes: G92 - Toxic encephalopathy SNOMED: 940515621 (5) Aspiration pneumonia ICD Codes: J69.0 - Pneumonitis due to inhalation of food and vomit SNOMED: 540189020 (6) Encephalopathy ICD Codes: G93.40 - Encephalopathy, unspecified SNOMED: 92047410 (7) Sepsis ICD Codes: A41.9 - Sepsis, unspecified organism SNOMED: 53085442 Qualifiers: Qualified Codes: A41.9 - Sepsis, unspecified organism (8) Pneumonia ICD Codes: J18.9 - Pneumonia, unspecified organism SNOMED: 337971163 (9) Status epilepticus ICD Codes: G40.901 - Epilepsy, unspecified, not intractable, with status epilepticus SNOMED: 332268001 Status: stable Assessment/Plan: cont vent support resp rx gt feeds iv abx id eval pending check stool ob and iron panel may need transfusion wound care sz rx dc TB meds per dept of health Subjective ROS Limited/Unobtainable: Yes Constitutional: Reports: malaise, weakness HEENT: Reports: no symptoms Cardiovascular: Reports: no symptoms Respiratory: Reports: shortness of breath Gastrointestinal/Abdominal: Reports: difficulty swallowing Genitourinary: Reports: no symptoms Neurologic/Psychiatric: Reports: pre-existing deficit, seizure Endocrine: Reports: no symptoms Hematologic/Lymphatic: Reports: anemia Allergies: Coded Allergies: No Known Allergies (Unverified , 01/27/17) All Systems: reviewed and negative except above Subjective no events. multiple positive blood cultures. on the vent. poorly responsive. awake. does not track or follow commands. h/h lower today. no report of bleeding Objective Last 24 Hour Vital Signs Date Time Temp Pulse Resp B/P (MAP) Pulse Ox O2 Delivery O2 Flow Rate FiO2 01/26/19 04:36 79 22 40 01/26/19 04:00 83 01/26/19 04:00 Mechanical Ventilator 01/26/19 04:00 98.6 85 23 155/76 (102) 100 01/26/19 03:10 85 26 40 01/26/19 01:35 89 23 100 Mechanical Ventilator 40 01/26/19 01:25 84 21 40 01/26/19 01:25 84 21 100 Mechanical Ventilator 40 01/26/19 00:09 40 01/26/19 00:00 83 01/26/19 00:00 Mechanical Ventilator 01/26/19 00:00 98.4 88 26 145/72 (96) 100 01/25/19 23:00 85 22 40 01/25/19 22:17 86 25 40 01/25/19 21:06 114 129/89 01/25/19 20:00 Mechanical Ventilator 01/25/19 20:00 40 01/25/19 20:00 99.3 104 27 129/89 (102) 100 01/25/19 20:00 113 01/25/19 19:30 117 27 100 Mechanical Ventilator 40 01/25/19 19:22 104 24 40 01/25/19 19:22 104 24 100 Mechanical Ventilator 40 01/25/19 16:50 90 25 40 01/25/19 16:00 99.1 85 24 150/81 (104) 96 01/25/19 16:00 40 01/25/19 16:00 Mechanical Ventilator 01/25/19 16:00 85 01/25/19 14:36 90 25 40 01/25/19 13:23 95 25 40 01/25/19 13:23 95 25 100 Mechanical Ventilator 40 01/25/19 13:08 90 27 100 Mechanical Ventilator 40 01/25/19 12:00 Mechanical Ventilator 01/25/19 12:00 88 01/25/19 12:00 98.2 87 25 154/68 (96) 100 01/25/19 12:00 40 01/25/19 10:53 85 24 40 01/25/19 08:44 97.9 01/25/19 08:36 94 26 40 01/25/19 08:30 97.3 01/25/19 08:09 116 169/84 01/25/19 08:00 40 01/25/19 08:00 100.5 116 28 169/94 (119) 100 01/25/19 08:00 Mechanical Ventilator 01/25/19 08:00 120 Intake and Output 01/25/19 01/26/19 19:00 07:00 Intake Total 2097.0 ml 2312.5 ml Output Total 1000 ml 1100 ml Balance 1097.0 ml 1212.5 ml Free Water 95 ml 220 ml IV Total 1222.0 ml 1312.5 ml Tube Feeding 780 ml 780 ml Output Urine Total 1000 ml 1100 ml # Bowel Movements 1 Laboratory Tests 01/26/19 03:00: Vancomycin Level Trough 10.2 Height (Feet): 5 Height (Inches): 5.00 Weight (Pounds): 125 Objective General Appearance: WD/WN, confused Neck: supple Cardiovascular: normal peripheral pulses, normal rate, regular rhythm Respiratory/Chest: chest wall non-tender, lungs clear, normal breath sounds, no respiratory distress Abdomen: normal bowel sounds, non tender, soft, no organomegaly Edema: no edema noted Arm (L), no edema noted Arm (R), no edema noted Leg (L), no edema noted Leg (R), no edema noted Pedal (L), no edema noted Pedal (R), no edema noted Generalized Neurologic: disoriented, unresponsive, aphasia Jarrod Vásquez MD Jan 26, 2019 07:36
[2019-01-26 07:41] LABS: HEMOGLOBIN 6.8 G/DL (14.2-18.0)
--- NOTE | 2019-01-26 07:45 | NUR ---
NURSE NOTES: Received call from lab for hgb 6.8, spoke with Meron. Dr Vásqeuz notified and made aware. Awaiting for call back/orders.
[2019-01-26 08:00] VITALS: BP 157/82
--- NOTE | 2019-01-26 08:01 | Pulmonology Progress Note ---
Assessment/Plan Assessment/Plan ASSESSMENT: toxic metabolic encephalopathy, history of stroke, chronic respiratory failure, hyponatremia, acute on chronic renal failure, chronic encephalopathy, seizure disorder, pulmonary tuberculosis, and anemia possible sepsis, leukocytosis PLAN care noted TB meds IV antibiotics respiratory care Ventilatory support- no wean SNF meds noted supportive care as is suction as needed oxygen therapy nursing notes reviewed care noted and discussed prognosis poor overall all cultures and erp implementation consultant notes reviewed impression, plan, and exam edited and reviewed in detail care discussed with RN Subjective ROS Limited/Unobtainable: Yes Allergies: Coded Allergies: No Known Allergies (Unverified , 01/27/17) Subjective on vent poor loc Objective Last 24 Hour Vital Signs Date Time Temp Pulse Resp B/P (MAP) Pulse Ox O2 Delivery O2 Flow Rate FiO2 01/26/19 04:36 79 22 40 01/26/19 04:00 83 01/26/19 04:00 Mechanical Ventilator 01/26/19 04:00 98.6 85 23 155/76 (102) 100 01/26/19 03:10 85 26 40 01/26/19 01:35 89 23 100 Mechanical Ventilator 40 01/26/19 01:25 84 21 40 01/26/19 01:25 84 21 100 Mechanical Ventilator 40 01/26/19 00:09 40 01/26/19 00:00 83 01/26/19 00:00 Mechanical Ventilator 01/26/19 00:00 98.4 88 26 145/72 (96) 100 01/25/19 23:00 85 22 40 01/25/19 22:17 86 25 40 01/25/19 21:06 114 129/89 01/25/19 20:00 Mechanical Ventilator 01/25/19 20:00 40 01/25/19 20:00 99.3 104 27 129/89 (102) 100 01/25/19 20:00 113 01/25/19 19:30 117 27 100 Mechanical Ventilator 40 01/25/19 19:22 104 24 40 01/25/19 19:22 104 24 100 Mechanical Ventilator 40 01/25/19 16:50 90 25 40 01/25/19 16:00 99.1 85 24 150/81 (104) 96 01/25/19 16:00 40 01/25/19 16:00 Mechanical Ventilator 01/25/19 16:00 85 01/25/19 14:36 90 25 40 01/25/19 13:23 95 25 40 01/25/19 13:23 95 25 100 Mechanical Ventilator 40 01/25/19 13:08 90 27 100 Mechanical Ventilator 40 01/25/19 12:00 Mechanical Ventilator 01/25/19 12:00 88 01/25/19 12:00 98.2 87 25 154/68 (96) 100 01/25/19 12:00 40 01/25/19 10:53 85 24 40 01/25/19 08:44 97.9 01/25/19 08:36 94 26 40 01/25/19 08:30 97.3 01/25/19 08:09 116 169/84 Intake and Output 01/25/19 01/26/19 19:00 07:00 Intake Total 2097.0 ml 2312.5 ml Output Total 1000 ml 1100 ml Balance 1097.0 ml 1212.5 ml Free Water 95 ml 220 ml IV Total 1222.0 ml 1312.5 ml Tube Feeding 780 ml 780 ml Output Urine Total 1000 ml 1100 ml # Bowel Movements 1 Objective GENERAL APPEARANCE: The patient is a chronically ill-appearing male, in no apparent distress. unresponsive. NECK: Supple. Trach site is clean, dry, and intact. CARDS: RRR without MRG LUNGS: occasional rhonchi. moderate air entry; no wheeze ABDOMEN: Soft, nontender, and nondistended. GT EXTREMITIES: No clubbing or cyanosis. reduced skin turgor multiple decubitus NEURO: obtunded Laboratory Tests 01/26/19 03:00: White Blood Count 15.1H, Red Blood Count 2.58L, Hemoglobin 6.8*L, Hematocrit 22.1L, Mean Corpuscular Volume 86, Mean Corpuscular Hemoglobin 26.2L, Mean Corpuscular Hemoglobin Concent 30.5L, Red Cell Distribution Width 21.2H, Platelet Count 287, Mean Platelet Volume 4.3L, Neutrophils (%) (Auto) , Lymphocytes (%) (Auto) , Monocytes (%) (Auto) , Eosinophils (%) (Auto) , Basophils (%) (Auto) , Neutrophils % (Manual) [Pending], Lymphocytes % (Manual) [Pending], Platelet Estimate [Pending], Platelet Morphology [Pending], Vancomycin Level Trough 10.2 Current Medications Medications (Trade) Dose Ordered Sig/Iram Route PRN Reason Start Time Stop Time Status Last Admin Dose Admin Acetaminophen (Tylenol) 650 mg Q4H PRN NG fever 01/23/19 10:21 02/22/19 10:20 01/25/19 08:14 Acetaminophen/ Hydrocodone Bitart ([place] 10) 1 tab Q4H PRN ORAL For Pain 01/23/19 15:45 01/30/19 15:44 01/26/19 01:45 Albuterol/ Ipratropium (Albuterol/ Ipratropium) 3 ml Q6HRT HHN 01/23/19 13:00 01/28/19 12:59 01/26/19 07:34 Ascorbic Acid (Vitamin C) 500 mg BID GT 01/23/19 11:00 02/22/19 10:59 01/25/19 17:02 Famotidine (Pepcid) 20 mg BID GT 01/23/19 10:21 02/22/19 10:20 01/25/19 17:02 Heparin Sodium (Porcine) (Heparin 5000 units/ml) 5,000 units EVERY 12 HOURS SUBQ 01/23/19 21:00 02/22/19 20:59 01/25/19 21:06 Levetiracetam (Keppra) 750 mg Q12HR GT 01/23/19 10:21 02/22/19 10:20 01/25/19 21:07 Metoprolol Tartrate (Lopressor) 50 mg Q12HR GT 01/25/19 09:00 02/24/19 08:59 01/25/19 21:06 Piperacillin Sod/ Tazobactam Sod 3.375 gm/Sodium Chloride 110 ml @ 27.5 mls/hr EVERY 8 HOURS IVPB 01/23/19 06:00 01/28/19 05:59 01/26/19 05:14 Sodium Hypochlorite (Dakin's Quarter Strength) 1 applic DAILY TOPIC 01/25/19 09:00 02/23/19 17:59 01/25/19 08:14 Sodium Chloride 1,000 ml @ 75 mls/hr [id number] IV 01/26/19 02:45 02/25/19 02:44 01/26/19 03:02 Vancomycin HCl (Vanco rx to dose) 1 ea DAILY PRN MISC Per rx protocol 01/23/19 02:45 02/22/19 02:44 Vancomycin HCl 1.25 gm/Dextrose 275 ml @ 183.333 mls/hr Q24H IVPB 01/26/19 06:00 01/31/19 05:59 01/26/19 05:14 Nakul Cisse MD Jan 26, 2019 08:01
--- NOTE | 2019-01-26 08:15 | NUR ---
NURSE NOTES: Received new orders from Dr Vásquez, noted and carried out.
[2019-01-26] MEDS: Heparin 5000 units/ml inj SUBQ SCH ×2 (09:00→20:46)
[2019-01-26] MEDS: levETIRAcetam 500mg/5ml Liquid GT SCH ×2 (09:04→20:43)
[2019-01-26] MEDS: Metoprolol Tartrate 50mg tab GT SCH ×2 (09:04→20:45)
[2019-01-26] MEDS: Ascorbic Acid 500mg tab GT SCH ×2 (09:04→17:14)
[2019-01-26] MEDS: Dakin's 0.125% Soln (Quarter Strength) 16oz TOPIC SCH (09:10)
--- NOTE | 2019-01-26 11:02 | NUR ---
RD ASSESSMENT & RECOMMENDATIONS SEE CARE ACTIVITY FOR COMPLETE ASSESSMENT DAILY ESTIMATED NEEDS: Needs based on Underweight, TF EVP GENERAL COUNSEL, Cachetic, Critical care, wounds/49.5kg 30-40 kcals/kg 5334-2412 total kcals 1.5-2 g protein/kg 74-99 g total protein 25-30 mL/kg 1907-6304 total fluid mLs NUTRITION DIAGNOSIS: 1) Swallowing difficulty r/t dysphagia, respiratory status as evidenced by pt is PEG dep, trach/vent dep. . 2) Increased kcal/prot needs R/T underweight status w/ wasting, and wound healing as evidenced by low BMI under guidelines, noted w/ severe generalized wasting, pt w/ multiple advanced wounds, pending eval CURRENT TF: Vital AF 1.2 @65ml ENTERAL NUTRITION RECOMMENDATIONS: Vital AF 1.2 @ 65ml/hr x 24 hrs to provide 1560ml, 1872kcal, 117g prot, 1265ml free water - Maintain Vital AF 1.2 @ 65ml/hr as tolerated - Meets 100% est kcal and protein needs. - HOB over 30 degrees/ water flush per MD ADDITIONAL RECOMMENDATIONS: 1) WOUND HEALING: add Vit C 500mg BID, Edgard 1pkt BID 2) RECALIBRATE BED SCALE FOR ACCURATE CBW + weekly wt monitoring given underweight status 3) Check lytes daily, replete as needed - wnl 4) Continue to maintain calibrated bed scale wts .
[2019-01-26 12:00] VITALS: BP 159/73
--- NOTE | 2019-01-26 13:08 | NUR ---
CASE MANAGEMENT:REVIEW 01/26/19 SI: AC/CHR RENAL FAILURE. POSSIBLE SEPSIS PULMONARY TUBERCULOSIS. TRACH 97.9 83 24 159/73 100% ON VENT SUPPORT 40% FIO2 WBC+15.1 H/H-6.8/22.1 IS: TRANSFUSE 1 UNIT COLISTIN INH Q12 IVF@75/HR IV ZOSYN Q8HRS LOPRESSOR GT Q12 HEPARIN SQ Q12 DUONEB HHN Q6HRS RTC KEPPRA GT Q12 : STEP DOWN UNIT DCP: FROM [facility]
[2019-01-26] MEDS: Colistin for inhalation INH SCH ×2 (13:21→22:09)
--- NOTE | 2019-01-26 14:40 | NUR ---
NURSE NOTES: Blood transfusion completed. No adverse reactions noted, patient tolerated well. Will continue to monitor.
[2019-01-26 16:00] VITALS: BP 163/84
--- NOTE | 2019-01-26 16:46 | Surgery Progress Note ---
Surgery Progress Note Subjective Additional Comments afebrile, HD stable, leukocytosis, anemia Objective Last 24 Hour Vital Signs Date Time Temp Pulse Resp B/P (MAP) Pulse Ox O2 Delivery O2 Flow Rate FiO2 01/26/19 16:00 Mechanical Ventilator 01/26/19 16:00 79 01/26/19 16:00 40 01/26/19 15:17 80 23 40 01/26/19 13:31 81 19 100 Mechanical Ventilator 40 01/26/19 13:27 81 20 40 01/26/19 13:21 82 16 100 Mechanical Ventilator 40 01/26/19 13:16 82 21 100 Mechanical Ventilator 40 01/26/19 13:06 83 16 100 Mechanical Ventilator 40 01/26/19 12:00 40 01/26/19 12:00 97.9 83 24 159/73 (101) 100 01/26/19 12:00 Mechanical Ventilator 01/26/19 11:40 80 01/26/19 11:28 83 26 40 01/26/19 09:12 87 24 40 01/26/19 09:04 80 157/82 01/26/19 08:00 97.9 80 18 157/82 (107) 100 01/26/19 08:00 Mechanical Ventilator 01/26/19 08:00 83 01/26/19 08:00 40 01/26/19 07:44 89 24 100 Mechanical Ventilator 40 01/26/19 07:34 87 23 100 Mechanical Ventilator 40 01/26/19 06:57 87 24 40 01/26/19 04:36 79 22 40 01/26/19 04:00 83 01/26/19 04:00 Mechanical Ventilator 01/26/19 04:00 98.6 85 23 155/76 (102) 100 01/26/19 03:10 85 26 40 01/26/19 01:35 89 23 100 Mechanical Ventilator 40 01/26/19 01:25 84 21 40 01/26/19 01:25 84 21 100 Mechanical Ventilator 40 01/26/19 00:09 40 01/26/19 00:00 83 01/26/19 00:00 Mechanical Ventilator 01/26/19 00:00 98.4 88 26 145/72 (96) 100 01/25/19 23:00 85 22 40 01/25/19 22:17 86 25 40 01/25/19 21:06 114 129/89 01/25/19 20:00 Mechanical Ventilator 01/25/19 20:00 40 01/25/19 20:00 99.3 104 27 129/89 (102) 100 01/25/19 20:00 113 01/25/19 19:30 117 27 100 Mechanical Ventilator 40 01/25/19 19:22 104 24 40 01/25/19 19:22 104 24 100 Mechanical Ventilator 40 01/25/19 16:50 90 25 40 I&O Intake and Output 01/25/19 01/26/19 19:00 07:00 Intake Total 2097.0 ml 2312.5 ml Output Total 1000 ml 1100 ml Balance 1097.0 ml 1212.5 ml Free Water 95 ml 220 ml IV Total 1222.0 ml 1312.5 ml Tube Feeding 780 ml 780 ml Output Urine Total 1000 ml 1100 ml # Bowel Movements 1 Dressing: saturated Wound: other Drains: other Cardiovascular: RSR Respiratory: decreased breath sounds Abdomen: soft, present bowel sounds, other Extremities: other Laboratory Tests Test 01/26/19 03:00 White Blood Count 15.1 K/UL (4.8-10.8) H Red Blood Count 2.58 M/UL (4.70-6.10) L Hemoglobin 6.8 G/DL (14.2-18.0) *L Hematocrit 22.1 % (42.0-52.0) L Mean Corpuscular Volume 86 FL (80-99) Mean Corpuscular Hemoglobin 26.2 PG (27.0-31.0) L Mean Corpuscular Hemoglobin Concent 30.5 G/DL (32.0-36.0) L Red Cell Distribution Width 21.2 % (11.6-14.8) H Platelet Count 287 K/UL (150-450) Mean Platelet Volume 4.3 FL (6.5-10.1) L Neutrophils (%) (Auto) % (45.0-75.0) Lymphocytes (%) (Auto) % (20.0-45.0) Monocytes (%) (Auto) % (1.0-10.0) Eosinophils (%) (Auto) % (0.0-3.0) Basophils (%) (Auto) % (0.0-2.0) Differential Total Cells Counted 100 Neutrophils % (Manual) 90 % (45-75) H Lymphocytes % (Manual) 4 % (20-45) L Monocytes % (Manual) 5 % (1-10) Eosinophils % (Manual) 1 % (0-3) Basophils % (Manual) 0 % (0-2) Band Neutrophils 0 % (0-8) Platelet Estimate Adequate Platelet Morphology Normal Hypochromasia 1+ Anisocytosis 2+ Vancomycin Level Trough 10.2 ug/mL (5.0-12.0) Plan Problems: (1) HCAP (healthcare-associated pneumonia) (2) Decubitus ulcer Assessment & Plan: Pt presented on admission with multiple pressure injuries. Resolving pressure injury L occipital. Dry pink epithelial noted. Skin assessed under trach collar and no areas of concerns noted . R and L ears dry . Full thickness pressure injury with undermining thoracic spine . Base of wound 75% granular with 25% fibrinous slough. Mild odor noted.(L)8.5cm x (W)6.5cmx(D) 1cm, undermining clockwise 6-1 by 3cm @12o'clock. Full thickness pressure injury L trochanter. 100% mixed necrosis/slough at base of wound and undermined borders.Non-blanchable erythema with induration noted periwound. Mild odor noted .(L)3.5cm x (W)4.5cm. Resolving DTPI L ischium .Centrally wound is red and fluctuant .Bone is palpable. Black with red tinged indurated borders noted. (L) (L)4.4cm x (W) 3.2cm. Ful thickness pressure injury R Iliac with 10% velazquez slough centrally.90% granular.Edges adherent and flat. (L)3cm x (W)3.2cm x(D)0.2cm. No odor or exudate noted.Darker skin tone without fluctuance noted periwound. Full thickness pressure injury with undermining R trochanter. Base of wound 60^ beefy red with 40% velazquez slough.erythejma noted along borders. Small amt seropurulent exudate that is mildly odorous.(L)5.5cm x (W)6.6cm x (D)1.5cm, undermining clockwise 12-12 by 4.5cm @3o'clock. Full thickness pressure injury R ischium (L)4.2cm x (W)5.5cm x(D)1.6cm, undermining 12-12 by 1.8cm @12o'clock .Base of wound 60% granular ,40% velazquez slough undermined borders.Wound has mild odor with small amt seropurulent exudate.darker skin tone that is indurated periwound. Resolving pressure injury sacrum . Base of wound dry with pink epithelial.with scattered shearing within base of wound. L heel boggy with non-blanchable erythema. DTPI R heel and Lateral aspect .Base of wound is maroon with fluctuance. (L) 4.5cm x (W)7.3cm. Tx.Plan. Cleanse wounds Thoracic and lumbar spine with Dakin's 0.125% segun. Pack with Dakin's moist gauze. Apply Moisture Barrier Paste periwound. Cover each wound with Optifoam drsg.Twice Daily and prn. Cleanse wound L trochanter and L ischium with Dakin's 0.125% segun. Pack with Dakin's moist Gauze.Apply Moisture Barrier paste periwound. Cover with Optifoam drsg. Twice daily and prn. Cleanse wounds R iliac ,R trochanter,R ischium with Dakin's 0.125% segun. Pack with Dakin's moist gauze. Apply Moisture Barrier Paste periwound. Cover with Optifoam drsg Twice daily and prn. Apply Moisture Barrier paste to sacrum. Cover with Optifoam drsg. Change every 3 days and prn. Apply Cavilon Skin Barrier to Both heels. Cover each heel with Optifoam drsg. Change every 7 days and prn. Air Fluidized Mattress. Reposition at least every 2hours or as tolerated. Off-load heels with pillow. (3) Anemia (4) UTI (urinary tract infection), bacterial (5) Toxic metabolic encephalopathy (6) Dementia (7) Dyspnea (8) Respiratory distress (9) Hyperlipidemia (10) Aspiration pneumonia (11) Aspiration pneumonia (12) Vitamin B 12 deficiency (13) Encephalopathy (14) Sepsis Assessment & Plan: Leukocytosis trending down. cont with IV fluids Cont with IV abx as per ID CXR noted labs noted Thank you for this consultation we will follow with recommendations (15) Pneumonia (16) Status epilepticus (17) HTN (hypertension) (18) Encephalopathy acute (19) BPH (benign prostatic hyperplasia) (20) Abnormal LFTs (21) Probable sepsis (2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 (23) Zev Mchugh Jan 26, 2019 16:46
--- NOTE | 2019-01-26 18:00 | Consultation ---
DATE OF CONSULTATION: 01/26/2019 INFECTIOUS DISEASES CONSULTATION This consult is for coverage of Dr. Urban. CONSULTING PHYSICIAN: Rahul Shen M.D. PRIMARY ATTENDING PHYSICIAN: Jarrod Vásquez M.D. REASON FOR CONSULTATION: Sepsis, UTI, pneumonia. HISTORY OF PRESENT ILLNESS: The patient is a 73-year-old male admitted on 01/22/2019 from a nursing facility because of altered mental status. The patient had temperature of 102.3 on the day of admission, had a pulse up to 120, had leukocytosis of 20.2. After admission, he was started on IV antibiotics and is doing better. The patient is noncommunicative. PAST MEDICAL HISTORY: Significant for ventilator-dependent respiratory failure, advanced dementia, hypertension, history of COPD, history of pulmonary tuberculosis, stage IV pressure ulcers, BPH, anemia. ALLERGIES: No known drug allergies. MEDICATIONS: Vancomycin, sodium chloride, metoprolol, Nubieber, albuterol ipratropium inhaler, vitamin C, Keppra, famotidine, Zosyn. SOCIAL HISTORY: residential resident with poor mental and functional status, bedbound. . REVIEW OF SYSTEMS: Unobtainable. PHYSICAL EXAMINATION: VITAL SIGNS: Temperature 97.9, pulse 87, blood pressure 157/82. GENERAL APPEARANCE: Seems to be thin, cachectic. HEAD AND NECK: Status post tracheostomy. Pale conjunctiva. HEART: Normal rate. Has peripheral line. LUNGS: On mechanical ventilator, clear ABDOMEN: Soft. G-tube feeding. EXTREMITIES: No edema. Has muscle atrophy. SKIN: Multiple stage IV pressure ulcer in bilateral hips and sacral area. GENITOURINARY: Has Manzo catheter. LABORATORY AND DIAGNOSTIC DATA: WBC 15.1, hemoglobin 6.8, hematocrit 22.1, and platelets 278. Sodium 144, potassium 3.5, chloride 107, bicarbonate 25, BUN 18, creatinine 0.6, glucose 89. Chest x-ray showed bilateral infiltrates versus edema, appear to increase in the left side, stable in the right side. Echocardiogram showed ejection fraction of 55%. MRSA and VRE screen are positive. Blood culture negative. Urine culture grew ESBL, E coli. Sputum culture showed Acinetobacter that is mostly drug resistant and only sensitive to colistin and polymyxin B. IMPRESSION: 1. Sepsis with fever, leukocytosis, and tachycardia. 2. The patient seems to have new pneumonia. 3. UTI with Providencia & E.coli. 4. Multiple stage IV pressure ulcer which seems to be better than before. 5. Ventilator-dependent respiratory failure. 6. Advanced dementia. 7. History of TB that was treated. 8. Severe anemia. RECOMMENDATION: 1. Continue Zosyn. 2. Change IV vancomycin to colistin inhaler. 3. We will follow up the clinical course. At the end of my exam, I thank Dr. Vásquez for involving me in the care of this patient. Rahul Shen M.D. DR: Rubio JOB#: [id number] CC: CHRISTEN
--- NOTE | 2019-01-26 19:05 | NUR ---
HAND-OFF: Report given to LALA Leggett. Patient in stable condition.
--- NOTE | 2019-01-26 19:06 | NUR ---
NURSE NOTES: Received bedside report from LALA De Jesus.Patient stable,no s/s of pain,no respiratory distress at this time, ST on threat monitoring analyst,open eyes,trach-vent Portex 7 AC 12 TV 500 FiO2 40% PEEP 5 tolerated setting well,GT running with Vital AF 1.2 x 24 hrs @ 65ml/hr,no residual tolerader feeding well,f/cath for retention,IV asymptomatic,intact on L handG 20 running with 1/2 NS@ 75 ml/hr,bed secured in a low safety position,call light within a reach,will continue to monitor and follow POC.
[2019-01-26 20:00] VITALS: BP 184/92
[2019-01-27] VITALS: BP 150/86
[2019-01-27] MEDS: Albuterol/Ipratropium 3ml neb HHN SCH ×4 (02:21→19:02)
--- NOTE | 2019-01-27 03:30 | Progress Note ---
DATE: 01/26/2019 CARDIOLOGY PROGRESS NOTE SUBJECTIVE: The patient is now off anti-TB therapy as he is fully treated according to the record. The patient remains on ventilator support and broad-spectrum antimicrobials. Monitored rhythm sinus and sinus tachycardia. OBJECTIVE: VITAL SIGNS: Blood pressure 184/92, heart rate 99, and respirations 22. LUNGS: Coarse breath sounds. Thick trach secretions. HEART: Regular rhythm. Rapid rate. Normal S1, S2. There is a fourth heart sound. ABDOMEN: Soft. G-tube intact. EXTREMITIES: No edema. IMPRESSION: 1. Ventilator-dependent respiratory failure. 2. Status post active tuberculosis with treatment completion. 3. Labile hypertension. 4. Secondary sinus tachycardia. 5. Healthcare-acquired pneumonia. PLAN: 1. Antimicrobials. 2. Ventilator support. 3. Discontinue beta-agonist. 4. P.r.n. hydralazine for blood pressure spikes. 5. Titrate beta-cr. 6. DVT and stress ulcer prophylaxis. 7. Recheck radiograph of the chest. 8. Trend natriuretic peptide assay. 9. Adjust intravenous fluids accordingly. 10. Reassess for diuresis on a p.r.n. basis. Jones Arauz M.D. DR: ERICA JOB#: [id number] CC:
[2019-01-27 04:00] VITALS: BP 156/66
[2019-01-27 05:44] LABS: HEMATOCRIT 25.9 % (42.0-52.0); HEMOGLOBIN 8.2 G/DL (14.2-18.0); MEAN CORPUSCULAR VOLUME 86 FL (80-99); PLATELET COUNT 310 K/UL (150-450); RED BLOOD COUNT 3.02 M/UL (4.70-6.10); RED CELL DISTRIBUTION WIDTH 20.3 % (11.6-14.8); WHITE BLOOD COUNT 12.7 K/UL (4.8-10.8)
[2019-01-27] MEDS: Piperacillin/Tazobactam 3.375 GM in NS 110 ML IVPB SCH ×3 (06:21→21:02)
--- NOTE | 2019-01-27 07:02 | NUR ---
HAND-OFF: Report given to LALA De Jesus.Patient stable.
--- NOTE | 2019-01-27 07:03 | NUR ---
NURSE NOTES: Received report from LALA Leggett. Observed patient in bed, opens eyes but nonverbal. On trach-vent with previous settings, no acute respiratory distress noted. GT intact and patent with feeding infusing at prescribed rate. HOB elevated. Manzo catheter intact and draining well to gravity. Left hand IV 20g intact and patent with IV fluids infusing at prescribed rate. Bed locked, alarmed, and in lowest position, seizure precautions implemented; padded side rails up x3, and call light left within reach. Will continue with plan of care and monitor patient.
--- NOTE | 2019-01-27 07:28 | NUR ---
RESPIRATORY NOTE: received pt, vent dependent, trached with portex [address] mid[address], secured via trach tie/guard with no resp distress. pt slightly tachypneic with rate of 26-28. vent alarms are set and audible with ambu bag and back up trach at bedside. will cont to monitor.
[2019-01-27 08:00] VITALS: BP 151/75
--- NOTE | 2019-01-27 08:03 | General Progress Note ---
Assessment/Plan Problem List: (1) Decubitus ulcer ICD Codes: L89.90 - Pressure ulcer of unspecified site, unspecified stage SNOMED: 155276744 Qualifiers: Qualified Codes: L89.94 - Pressure ulcer of unspecified site, stage 4 (2) Anemia ICD Codes: D64.9 - Anemia, unspecified SNOMED: 507076993 Qualifiers: Qualified Codes: D64.9 - Anemia, unspecified (3) UTI (urinary tract infection), bacterial ICD Codes: N39.0 - Urinary tract infection, site not specified; A49.9 - Bacterial infection, unspecified SNOMED: 428491356 (4) Toxic metabolic encephalopathy ICD Codes: G92 - Toxic encephalopathy SNOMED: 234475500 (5) Aspiration pneumonia ICD Codes: J69.0 - Pneumonitis due to inhalation of food and vomit SNOMED: 817911055 (6) Encephalopathy ICD Codes: G93.40 - Encephalopathy, unspecified SNOMED: 33248538 (7) Sepsis ICD Codes: A41.9 - Sepsis, unspecified organism SNOMED: 86217215 Qualifiers: Qualified Codes: A41.9 - Sepsis, unspecified organism (8) Pneumonia ICD Codes: J18.9 - Pneumonia, unspecified organism SNOMED: 705250467 (9) Status epilepticus ICD Codes: G40.901 - Epilepsy, unspecified, not intractable, with status epilepticus SNOMED: 284362437 Status: stable Assessment/Plan: cont vent support resp rx gt feeds iv abx id eval appreciated check stool ob and iron panel transfuse as needed wound care sz rx dc TB meds per dept of health Subjective ROS Limited/Unobtainable: Yes Constitutional: Reports: malaise, weakness HEENT: Reports: no symptoms Cardiovascular: Reports: no symptoms Respiratory: Reports: cough Gastrointestinal/Abdominal: Reports: difficulty swallowing Genitourinary: Reports: no symptoms Neurologic/Psychiatric: Reports: pre-existing deficit, seizure Endocrine: Reports: no symptoms Hematologic/Lymphatic: Reports: anemia Allergies: Coded Allergies: No Known Allergies (Unverified , 01/27/17) All Systems: reviewed and negative except above Subjective no events. multiple positive cultures- wound, sputum and urine. on the vent. poorly responsive. awake. does not track or follow commands. h/h stable. no bleeding. received 1 unit prbcs yesterday Objective Last 24 Hour Vital Signs Date Time Temp Pulse Resp B/P (MAP) Pulse Ox O2 Delivery O2 Flow Rate FiO2 01/27/19 07:30 107 26 100 Mechanical Ventilator 40 01/27/19 07:27 108 28 98 Mechanical Ventilator 40 01/27/19 07:25 106 28 40 01/27/19 07:16 108 01/27/19 04:54 94 22 40 01/27/19 04:00 Mechanical Ventilator 01/27/19 04:00 99.0 96 24 156/66 (96) 100 01/27/19 04:00 40 01/27/19 04:00 94 01/27/19 02:35 95 30 40 01/27/19 02:00 98 25 100 Mechanical Ventilator 40 01/27/19 01:50 95 25 100 Mechanical Ventilator 40 01/27/19 01:30 95 29 40 01/27/19 00:00 Mechanical Ventilator 01/27/19 00:00 99.1 91 25 150/86 (107) 100 01/26/19 23:41 90 01/26/19 23:30 62 20 40 01/26/19 22:00 78 24 100 Mechanical Ventilator 40 01/26/19 21:50 71 22 100 Mechanical Ventilator 40 01/26/19 21:30 67 22 40 01/26/19 21:00 40 01/26/19 20:45 99 184/92 01/26/19 20:20 100 24 100 Mechanical Ventilator 40 01/26/19 20:10 101 30 95 Mechanical Ventilator 40 01/26/19 20:10 101 29 40 40 01/26/19 20:00 Mechanical Ventilator 01/26/19 20:00 98.2 99 25 184/92 (122) 100 01/26/19 19:27 97 01/26/19 16:59 95 24 40 01/26/19 16:00 Mechanical Ventilator 01/26/19 16:00 79 01/26/19 16:00 97.7 92 28 163/84 (110) 100 01/26/19 16:00 40 01/26/19 15:17 80 23 40 01/26/19 13:31 81 19 100 Mechanical Ventilator 40 01/26/19 13:27 81 20 40 01/26/19 13:21 82 16 100 Mechanical Ventilator 40 01/26/19 13:16 82 21 100 Mechanical Ventilator 40 01/26/19 13:06 83 16 100 Mechanical Ventilator 40 01/26/19 12:00 40 01/26/19 12:00 97.9 83 24 159/73 (101) 100 01/26/19 12:00 Mechanical Ventilator 01/26/19 11:40 80 01/26/19 11:28 83 26 40 01/26/19 09:12 87 24 40 01/26/19 09:04 80 157/82 Intake and Output 01/26/19 01/27/19 19:00 07:00 Intake Total 1932.56070 ml 1810.3 ml Output Total 1200 ml 1250 ml Balance 732.74848 ml 560.3 ml Free Water 50 ml 300 ml IV Total 867.99174 ml 730.3 ml Tube Feeding 715 ml 780 ml Blood Product 300 ml Output Urine Total 1200 ml 1250 ml Laboratory Tests 01/27/19 03:49: White Blood Count 12.7H, Red Blood Count 3.02L, Hemoglobin 8.2L, Hematocrit 25.9L, Mean Corpuscular Volume 86, Mean Corpuscular Hemoglobin 27.2, Mean Corpuscular Hemoglobin Concent 31.7L, Red Cell Distribution Width 20.3H, Platelet Count 310, Mean Platelet Volume 4.6L, Neutrophils (%) (Auto) , Lymphocytes (%) (Auto) , Monocytes (%) (Auto) , Eosinophils (%) (Auto) , Basophils (%) (Auto) , Neutrophils % (Manual) [Pending], Lymphocytes % (Manual) [Pending], Platelet Estimate [Pending], Platelet Morphology [Pending] Height (Feet): 5 Height (Inches): 5.00 Weight (Pounds): 125 Objective General Appearance: WD/WN, confused Neck: supple Cardiovascular: normal peripheral pulses, normal rate, regular rhythm Respiratory/Chest: chest wall non-tender, lungs clear, normal breath sounds, no respiratory distress Abdomen: normal bowel sounds, non tender, soft, no organomegaly Edema: no edema noted Arm (L), no edema noted Arm (R), no edema noted Leg (L), no edema noted Leg (R), no edema noted Pedal (L), no edema noted Pedal (R), no edema noted Generalized Neurologic: disoriented, unresponsive, aphasia Jarrod Vásquez MD Jan 27, 2019 08:03
[2019-01-27] MEDS: levETIRAcetam 500mg/5ml Liquid GT SCH ×2 (08:15→20:07)
[2019-01-27] MEDS: Metoprolol Tartrate 50mg tab GT SCH ×2 (08:15→20:06)
[2019-01-27] MEDS: Ascorbic Acid 500mg tab GT SCH ×2 (08:15→17:13)
[2019-01-27] MEDS: Acetaminophen 650mg/20.3ml NG PRN (08:16)
[2019-01-27] MEDS: Heparin 5000 units/ml inj SUBQ SCH ×2 (08:18→20:09)
--- NOTE | 2019-01-27 08:22 | Pulmonology Progress Note ---
Assessment/Plan Assessment/Plan ASSESSMENT: toxic metabolic encephalopathy, history of stroke, chronic respiratory failure, hyponatremia, acute on chronic renal failure, chronic encephalopathy, seizure disorder, pulmonary tuberculosis, and anemia possible sepsis, leukocytosis PLAN care noted TB meds ongoing x 6 months IV antibiotics- noted respiratory care Ventilatory support- no wean SNF meds monitor HH supportive care as is suction as needed oxygen therapy nursing notes reviewed dc once stable care noted and discussed prognosis poor overall all cultures and business solutions consultant notes reviewed impression, plan, and exam edited and reviewed in detail care discussed with RN Subjective ROS Limited/Unobtainable: Yes Allergies: Coded Allergies: No Known Allergies (Unverified , 01/27/17) Subjective on vent poor loc labs reviewed Objective Last 24 Hour Vital Signs Date Time Temp Pulse Resp B/P (MAP) Pulse Ox O2 Delivery O2 Flow Rate FiO2 01/27/19 08:00 Mechanical Ventilator 01/27/19 08:00 40 01/27/19 07:30 107 26 100 Mechanical Ventilator 40 01/27/19 07:27 108 28 98 Mechanical Ventilator 40 01/27/19 07:25 106 28 40 01/27/19 07:16 108 01/27/19 04:54 94 22 40 01/27/19 04:00 Mechanical Ventilator 01/27/19 04:00 99.0 96 24 156/66 (96) 100 01/27/19 04:00 40 01/27/19 04:00 94 01/27/19 02:35 95 30 40 01/27/19 02:00 98 25 100 Mechanical Ventilator 40 01/27/19 01:50 95 25 100 Mechanical Ventilator 40 01/27/19 01:30 95 29 40 01/27/19 00:00 Mechanical Ventilator 01/27/19 00:00 99.1 91 25 150/86 (107) 100 01/26/19 23:41 90 01/26/19 23:30 62 20 40 01/26/19 22:00 78 24 100 Mechanical Ventilator 40 01/26/19 21:50 71 22 100 Mechanical Ventilator 40 01/26/19 21:30 67 22 40 01/26/19 21:00 40 01/26/19 20:45 99 184/92 01/26/19 20:20 100 24 100 Mechanical Ventilator 40 01/26/19 20:10 101 30 95 Mechanical Ventilator 40 01/26/19 20:10 101 29 40 40 01/26/19 20:00 Mechanical Ventilator 01/26/19 20:00 98.2 99 25 184/92 (122) 100 01/26/19 19:27 97 01/26/19 16:59 95 24 40 01/26/19 16:00 Mechanical Ventilator 01/26/19 16:00 79 01/26/19 16:00 97.7 92 28 163/84 (110) 100 01/26/19 16:00 40 01/26/19 15:17 80 23 40 01/26/19 13:31 81 19 100 Mechanical Ventilator 40 01/26/19 13:27 81 20 40 01/26/19 13:21 82 16 100 Mechanical Ventilator 40 01/26/19 13:16 82 21 100 Mechanical Ventilator 40 01/26/19 13:06 83 16 100 Mechanical Ventilator 40 01/26/19 12:00 40 01/26/19 12:00 97.9 83 24 159/73 (101) 100 01/26/19 12:00 Mechanical Ventilator 01/26/19 11:40 80 01/26/19 11:28 83 26 40 01/26/19 09:12 87 24 40 01/26/19 09:04 80 157/82 Intake and Output 01/26/19 01/27/19 19:00 07:00 Intake Total 1932.75629 ml 1810.3 ml Output Total 1200 ml 1250 ml Balance 732.14028 ml 560.3 ml Free Water 50 ml 300 ml IV Total 867.05310 ml 730.3 ml Tube Feeding 715 ml 780 ml Blood Product 300 ml Output Urine Total 1200 ml 1250 ml Objective GENERAL APPEARANCE: The patient is a chronically ill-appearing male, in no apparent distress. unresponsive. NECK: Supple. Trach site is clean, dry, and intact. CARDS: RRR without MRG LUNGS: occasional rhonchi. moderate air entry; no wheeze ABDOMEN: Soft, nontender, and nondistended. GT EXTREMITIES: No clubbing or cyanosis. reduced skin turgor multiple decubitus NEURO: obtunded Laboratory Tests 01/27/19 03:49: White Blood Count 12.7H, Red Blood Count 3.02L, Hemoglobin 8.2L, Hematocrit 25.9L, Mean Corpuscular Volume 86, Mean Corpuscular Hemoglobin 27.2, Mean Corpuscular Hemoglobin Concent 31.7L, Red Cell Distribution Width 20.3H, Platelet Count 310, Mean Platelet Volume 4.6L, Neutrophils (%) (Auto) , Lymphocytes (%) (Auto) , Monocytes (%) (Auto) , Eosinophils (%) (Auto) , Basophils (%) (Auto) , Differential Total Cells Counted 100, Neutrophils % ( Manual) 89H, Lymphocytes % (Manual) 3L, Monocytes % (Manual) 5, Eosinophils % ( Manual) 3, Basophils % (Manual) 0, Band Neutrophils 0, Platelet Estimate Adequate, Platelet Morphology Normal, Anisocytosis 2+ Current Medications Medications (Trade) Dose Ordered Sig/Iram Route PRN Reason Start Time Stop Time Status Last Admin Dose Admin Acetaminophen (Tylenol) 650 mg Q4H PRN NG fever 01/23/19 10:21 02/22/19 10:20 01/25/19 08:14 Acetaminophen/ Hydrocodone Bitart ([place] 10/325) 1 tab Q4H PRN ORAL For Pain 01/23/19 15:45 01/30/19 15:44 01/26/19 20:44 Albuterol/ Ipratropium (Albuterol/ Ipratropium) 3 ml Q6HRT HHN 01/23/19 13:00 01/28/19 12:59 01/27/19 07:28 Ascorbic Acid (Vitamin C) 500 mg BID GT 01/23/19 11:00 02/22/19 10:59 01/26/19 17:14 Colistimethate Sodium (Colistin *inhalation use only*) 75 mg Q12HR@10,22 INH 01/26/19 12:00 02/02/19 11:59 01/26/19 22:09 Famotidine (Pepcid) 20 mg BID GT 01/23/19 10:21 02/22/19 10:20 01/26/19 17:14 Heparin Sodium (Porcine) (Heparin 5000 units/ml) 5,000 units EVERY 12 HOURS SUBQ 01/23/19 21:00 02/22/19 20:59 01/26/19 20:46 Levetiracetam (Keppra) 750 mg Q12HR GT 01/23/19 10:21 02/22/19 10:20 01/26/19 20:43 Metoprolol Tartrate (Lopressor) 50 mg Q12HR GT 01/25/19 09:00 02/24/19 08:59 01/26/19 20:45 Piperacillin Sod/ Tazobactam Sod 3.375 gm/Sodium Chloride 110 ml @ 27.5 mls/hr EVERY 8 HOURS IVPB 01/23/19 06:00 01/28/19 23:59 01/27/19 06:21 Sodium Hypochlorite ([place] Quarter Strength) 1 applic DAILY TOPIC 01/25/19 09:00 02/23/19 17:59 01/26/19 09:10 Sodium Chloride 1,000 ml @ 75 mls/hr [id number] IV 01/26/19 02:45 02/25/19 02:44 01/26/19 22:29 Nakul Cisse MD Jan 27, 2019 08:22
[2019-01-27] MEDS: Colistin for inhalation INH SCH ×2 (09:39→21:38)
[2019-01-27] MEDS: Dakin's 0.125% Soln (Quarter Strength) 16oz TOPIC SCH (09:49)
--- NOTE | 2019-01-27 10:57 | Infectious Diseases Prog Note ---
Assessment/Plan Assessment/Plan antibiotics : zosyn, inhaled colistin A 1. e.coli esbl UTI 2. acenitobacter pneumonia 3. respiratory failure 4. pulmonary TB s/p rx 5. leucocytosis improving 7. hypertension 8. anemia 9. seizures P 1. continue zosyn, inhaled colistin 2. will follow up cultures Subjective ROS Limited/Unobtainable: Yes Allergies: Coded Allergies: No Known Allergies (Unverified , 01/27/17) Objective Vital Signs Last 24 Hour Vital Signs Date Time Temp Pulse Resp B/P (MAP) Pulse Ox O2 Delivery O2 Flow Rate FiO2 01/27/19 09:46 79 21 100 Mechanical Ventilator 40 01/27/19 09:40 77 28 100 Mechanical Ventilator 40 01/27/19 08:46 98.9 01/27/19 08:45 84 21 40 01/27/19 08:15 107 151/75 01/27/19 08:00 Mechanical Ventilator 01/27/19 08:00 40 01/27/19 08:00 99.8 107 22 151/75 (100) 100 01/27/19 07:30 107 26 100 Mechanical Ventilator 40 01/27/19 07:27 108 28 98 Mechanical Ventilator 40 01/27/19 07:25 106 28 40 01/27/19 07:16 108 01/27/19 04:54 94 22 40 01/27/19 04:00 Mechanical Ventilator 01/27/19 04:00 99.0 96 24 156/66 (96) 100 01/27/19 04:00 40 01/27/19 04:00 94 01/27/19 02:35 95 30 40 01/27/19 02:00 98 25 100 Mechanical Ventilator 40 01/27/19 01:50 95 25 100 Mechanical Ventilator 40 01/27/19 01:30 95 29 40 01/27/19 00:00 Mechanical Ventilator 01/27/19 00:00 99.1 91 25 150/86 (107) 100 01/26/19 23:41 90 01/26/19 23:30 62 20 40 01/26/19 22:00 78 24 100 Mechanical Ventilator 40 01/26/19 21:50 71 22 100 Mechanical Ventilator 40 01/26/19 21:30 67 22 40 01/26/19 21:00 40 01/26/19 20:45 99 184/92 01/26/19 20:20 100 24 100 Mechanical Ventilator 40 01/26/19 20:10 101 30 95 Mechanical Ventilator 40 01/26/19 20:10 101 29 40 40 01/26/19 20:00 Mechanical Ventilator 01/26/19 20:00 98.2 99 25 184/92 (122) 100 01/26/19 19:27 97 01/26/19 16:59 95 24 40 01/26/19 16:00 Mechanical Ventilator 01/26/19 16:00 79 01/26/19 16:00 97.7 92 28 163/84 (110) 100 01/26/19 16:00 40 01/26/19 15:17 80 23 40 01/26/19 13:31 81 19 100 Mechanical Ventilator 40 01/26/19 13:27 81 20 40 01/26/19 13:21 82 16 100 Mechanical Ventilator 40 01/26/19 13:16 82 21 100 Mechanical Ventilator 40 01/26/19 13:06 83 16 100 Mechanical Ventilator 40 01/26/19 12:00 40 01/26/19 12:00 97.9 83 24 159/73 (101) 100 01/26/19 12:00 Mechanical Ventilator 01/26/19 11:40 80 01/26/19 11:28 83 26 40 Height (Feet): 5 Height (Inches): 5.00 Weight (Pounds): 125 HEENT: status post trach Respiratory/Chest: lungs clear Cardiovascular: normal rate, regular rhythm, no gallop/murmur Abdomen: soft, non tender, other - GT Extremities: other - + edema Laboratory Tests Test 01/27/19 03:49 White Blood Count 12.7 K/UL (4.8-10.8) H Red Blood Count 3.02 M/UL (4.70-6.10) L Hemoglobin 8.2 G/DL (14.2-18.0) L Hematocrit 25.9 % (42.0-52.0) L Mean Corpuscular Volume 86 FL (80-99) Mean Corpuscular Hemoglobin 27.2 PG (27.0-31.0) Mean Corpuscular Hemoglobin Concent 31.7 G/DL (32.0-36.0) L Red Cell Distribution Width 20.3 % (11.6-14.8) H Platelet Count 310 K/UL (150-450) Mean Platelet Volume 4.6 FL (6.5-10.1) L Neutrophils (%) (Auto) % (45.0-75.0) Lymphocytes (%) (Auto) % (20.0-45.0) Monocytes (%) (Auto) % (1.0-10.0) Eosinophils (%) (Auto) % (0.0-3.0) Basophils (%) (Auto) % (0.0-2.0) Differential Total Cells Counted 100 Neutrophils % (Manual) 89 % (45-75) H Lymphocytes % (Manual) 3 % (20-45) L Monocytes % (Manual) 5 % (1-10) Eosinophils % (Manual) 3 % (0-3) Basophils % (Manual) 0 % (0-2) Band Neutrophils 0 % (0-8) Platelet Estimate Adequate Platelet Morphology Normal Anisocytosis 2+ Current Medications Medications (Trade) Dose Ordered Sig/Iram Route PRN Reason Start Time Stop Time Status Last Admin Dose Admin Acetaminophen (Tylenol) 650 mg Q4H PRN NG fever 01/23/19 10:21 02/22/19 10:20 01/27/19 08:16 Acetaminophen/ Hydrocodone Bitart ([place] 10/325) 1 tab Q4H PRN ORAL For Pain 01/23/19 15:45 01/30/19 15:44 01/26/19 20:44 Albuterol/ Ipratropium (Albuterol/ Ipratropium) 3 ml Q6HRT HHN 01/23/19 13:00 01/28/19 12:59 01/27/19 07:28 Ascorbic Acid (Vitamin C) 500 mg BID GT 01/23/19 11:00 02/22/19 10:59 01/27/19 08:15 Colistimethate Sodium (Colistin *inhalation use only*) 75 mg Q12HR@10,22 INH 01/26/19 12:00 02/02/19 11:59 01/27/19 09:39 Famotidine (Pepcid) 20 mg BID GT 01/23/19 10:21 02/22/19 10:20 01/27/19 08:13 Heparin Sodium (Porcine) (Heparin 5000 units/ml) 5,000 units EVERY 12 HOURS SUBQ 01/23/19 21:00 02/22/19 20:59 01/27/19 08:18 Levetiracetam (Keppra) 750 mg Q12HR GT 01/23/19 10:21 02/22/19 10:20 01/27/19 08:15 Metoprolol Tartrate (Lopressor) 50 mg Q12HR GT 01/25/19 09:00 02/24/19 08:59 01/27/19 08:15 Piperacillin Sod/ Tazobactam Sod 3.375 gm/Sodium Chloride 110 ml @ 27.5 mls/hr EVERY 8 HOURS IVPB 01/23/19 06:00 01/28/19 23:59 01/27/19 06:21 Sodium Hypochlorite ([place]akin's Quarter Strength) 1 applic DAILY TOPIC 01/25/19 09:00 02/23/19 17:59 01/27/19 09:49 Sodium Chloride 1,000 ml @ 75 mls/hr [id number] IV 01/26/19 02:45 02/25/19 02:44 01/26/19 22:29 Sergio Urban MD Jan 27, 2019 10:57
[2019-01-27 12:00] VITALS: BP 153/78
--- NOTE | 2019-01-27 13:08 | Surgery Progress Note ---
Surgery Progress Note Subjective Additional Comments leukocytosis improved. exam unchanged. still ill appearing spoke with family today in person Objective Last 24 Hour Vital Signs Date Time Temp Pulse Resp B/P (MAP) Pulse Ox O2 Delivery O2 Flow Rate FiO2 01/27/19 13:04 79 26 100 Mechanical Ventilator 40 01/27/19 13:03 80 26 40 01/27/19 12:58 100 14 81 Mechanical Ventilator 40 01/27/19 12:00 Mechanical Ventilator 01/27/19 12:00 40 01/27/19 12:00 97.7 75 26 153/78 (103) 100 01/27/19 10:57 77 29 40 01/27/19 09:46 79 21 100 Mechanical Ventilator 40 01/27/19 09:40 77 28 100 Mechanical Ventilator 40 01/27/19 08:46 98.9 01/27/19 08:45 84 21 40 01/27/19 08:15 107 151/75 01/27/19 08:00 Mechanical Ventilator 01/27/19 08:00 40 01/27/19 08:00 99.8 107 22 151/75 (100) 100 01/27/19 07:30 107 26 100 Mechanical Ventilator 40 01/27/19 07:27 108 28 98 Mechanical Ventilator 40 01/27/19 07:25 106 28 40 01/27/19 07:16 108 01/27/19 04:54 94 22 40 01/27/19 04:00 Mechanical Ventilator 01/27/19 04:00 99.0 96 24 156/66 (96) 100 01/27/19 04:00 40 01/27/19 04:00 94 01/27/19 02:35 95 30 40 01/27/19 02:00 98 25 100 Mechanical Ventilator 40 01/27/19 01:50 95 25 100 Mechanical Ventilator 40 01/27/19 01:30 95 29 40 01/27/19 00:00 Mechanical Ventilator 01/27/19 00:00 99.1 91 25 150/86 (107) 100 01/26/19 23:41 90 01/26/19 23:30 62 20 40 01/26/19 22:00 78 24 100 Mechanical Ventilator 40 01/26/19 21:50 71 22 100 Mechanical Ventilator 40 01/26/19 21:30 67 22 40 01/26/19 21:00 40 01/26/19 20:45 99 184/92 01/26/19 20:20 100 24 100 Mechanical Ventilator 40 01/26/19 20:10 101 30 95 Mechanical Ventilator 40 01/26/19 20:10 101 29 40 40 01/26/19 20:00 Mechanical Ventilator 01/26/19 20:00 98.2 99 25 184/92 (122) 100 01/26/19 19:27 97 01/26/19 16:59 95 24 40 01/26/19 16:00 Mechanical Ventilator 01/26/19 16:00 79 01/26/19 16:00 97.7 92 28 163/84 (110) 100 01/26/19 16:00 40 01/26/19 15:17 80 23 40 01/26/19 13:31 81 19 100 Mechanical Ventilator 40 01/26/19 13:27 81 20 40 01/26/19 13:21 82 16 100 Mechanical Ventilator 40 01/26/19 13:16 82 21 100 Mechanical Ventilator 40 I&O Intake and Output 01/26/19 01/27/19 19:00 07:00 Intake Total 1932.33218 ml 1810.3 ml Output Total 1200 ml 1250 ml Balance 732.57794 ml 560.3 ml Free Water 50 ml 300 ml IV Total 867.67952 ml 730.3 ml Tube Feeding 715 ml 780 ml Blood Product 300 ml Output Urine Total 1200 ml 1250 ml Dressing: saturated Wound: other Drains: other Cardiovascular: RSR Respiratory: decreased breath sounds Abdomen: soft, present bowel sounds, non-distended Extremities: other Laboratory Tests Test 01/27/19 03:49 White Blood Count 12.7 K/UL (4.8-10.8) H Red Blood Count 3.02 M/UL (4.70-6.10) L Hemoglobin 8.2 G/DL (14.2-18.0) L Hematocrit 25.9 % (42.0-52.0) L Mean Corpuscular Volume 86 FL (80-99) Mean Corpuscular Hemoglobin 27.2 PG (27.0-31.0) Mean Corpuscular Hemoglobin Concent 31.7 G/DL (32.0-36.0) L Red Cell Distribution Width 20.3 % (11.6-14.8) H Platelet Count 310 K/UL (150-450) Mean Platelet Volume 4.6 FL (6.5-10.1) L Neutrophils (%) (Auto) % (45.0-75.0) Lymphocytes (%) (Auto) % (20.0-45.0) Monocytes (%) (Auto) % (1.0-10.0) Eosinophils (%) (Auto) % (0.0-3.0) Basophils (%) (Auto) % (0.0-2.0) Differential Total Cells Counted 100 Neutrophils % (Manual) 89 % (45-75) H Lymphocytes % (Manual) 3 % (20-45) L Monocytes % (Manual) 5 % (1-10) Eosinophils % (Manual) 3 % (0-3) Basophils % (Manual) 0 % (0-2) Band Neutrophils 0 % (0-8) Platelet Estimate Adequate Platelet Morphology Normal Anisocytosis 2+ Plan Problems: (1) HCAP (healthcare-associated pneumonia) (2) Decubitus ulcer Assessment & Plan: Pt presented on admission with multiple pressure injuries. Resolving pressure injury L occipital. Dry pink epithelial noted. Skin assessed under trach collar and no areas of concerns noted . R and L ears dry . Full thickness pressure injury with undermining thoracic spine . Base of wound 75% granular with 25% fibrinous slough. Mild odor noted.(L)8.5cm x (W)6.5cmx(D) 1cm, undermining clockwise 6-1 by 3cm @12o'clock. Full thickness pressure injury L trochanter. 100% mixed necrosis/slough at base of wound and undermined borders.Non-blanchable erythema with induration noted periwound. Mild odor noted .(L)3.5cm x (W)4.5cm. Resolving DTPI L ischium .Centrally wound is red and fluctuant .Bone is palpable. Black with red tinged indurated borders noted. (L) (L)4.4cm x (W) 3.2cm. Ful thickness pressure injury R Iliac with 10% velazquez slough centrally.90% granular.Edges adherent and flat. (L)3cm x (W)3.2cm x(D)0.2cm. No odor or exudate noted.Darker skin tone without fluctuance noted periwound. Full thickness pressure injury with undermining R trochanter. Base of wound 60^ beefy red with 40% velazquez slough.erythejma noted along borders. Small amt seropurulent exudate that is mildly odorous.(L)5.5cm x (W)6.6cm x (D)1.5cm, undermining clockwise 12-12 by 4.5cm @3o'clock. Full thickness pressure injury R ischium (L)4.2cm x (W)5.5cm x(D)1.6cm, undermining 12-12 by 1.8cm @12o'clock .Base of wound 60% granular ,40% velazquez slough undermined borders.Wound has mild odor with small amt seropurulent exudate.darker skin tone that is indurated periwound. Resolving pressure injury sacrum . Base of wound dry with pink epithelial.with scattered shearing within base of wound. L heel boggy with non-blanchable erythema. DTPI R heel and Lateral aspect .Base of wound is maroon with fluctuance. (L) 4.5cm x (W)7.3cm. Tx.Plan. Cleanse wounds Thoracic and lumbar spine with Dakin's 0.125% segun. Pack with Dakin's moist gauze. Apply Moisture Barrier Paste periwound. Cover each wound with Optifoam drsg.Twice Daily and prn. Cleanse wound L trochanter and L ischium with Dakin's 0.125% segun. Pack with Dakin's moist Gauze.Apply Moisture Barrier paste periwound. Cover with Optifoam drsg. Twice daily and prn. Cleanse wounds R iliac ,R trochanter,R ischium with Dakin's 0.125% segun. Pack with Dakin's moist gauze. Apply Moisture Barrier Paste periwound. Cover with Optifoam drsg Twice daily and prn. Apply Moisture Barrier paste to sacrum. Cover with Optifoam drsg. Change every 3 days and prn. Apply Cavilon Skin Barrier to Both heels. Cover each heel with Optifoam drsg. Change every 7 days and prn. Air Fluidized Mattress. Reposition at least every 2hours or as tolerated. Off-load heels with pillow. Spoke with family. I explained to them that his condition has been deteriorating for some time now. i have seen him in the past and during each admission his wounds are deteriorating despite best efforts at care. He has received adequate nutritional support/supplementation, adequate wound care, and appropriate prevention while in hospital during each admission but wounds continue to deteriorate. they expressed understanding. cont with current care plan (3) Anemia (4) UTI (urinary tract infection), bacterial (5) Toxic metabolic encephalopathy (6) Dementia (7) Dyspnea (8) Respiratory distress (9) Hyperlipidemia (10) Aspiration pneumonia (11) Aspiration pneumonia (12) Vitamin B 12 deficiency (13) Encephalopathy (14) Sepsis Assessment & Plan: Leukocytosis trending down. cont with IV fluids Cont with IV abx as per ID CXR noted labs noted Thank you for this consultation we will follow with recommendations (15) Pneumonia (16) Status epilepticus (17) HTN (hypertension) (18) Encephalopathy acute (19) BPH (benign prostatic hyperplasia) (20) Abnormal LFTs (21) Probable sepsis (2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 (23) Zev Mchugh Jan 27, 2019 13:08
[2019-01-27 16:00] VITALS: BP_SYST 160; BP_SYST 162; BP_DIAS 80
--- NOTE | 2019-01-27 19:10 | NUR ---
NURSE NOTES: Pt report received from Kassi REEEVS JOSESITO. pt appears to be in stable condition laying in bed. pt is obtunded and is unable to follow commands. pt pupiles are round and reactive to light and accommodating bilaterally, sluggish. pt is a trach to vent pt with reported settings of Shy 8, AC 12, TV500, FiO2 40%, Peep 5, and is satturating at 100%, no signs symptoms of acute resp distress noted. pt is on a child monitor showing NSR with no signs symptoms of acute cardiac distress noted. Pt has a L H 20G able to flush. all safety precautions are active, bed rails up times 3, call light within easy reach, bed armed, locked and low. will continue plan of care.
--- NOTE | 2019-01-27 19:20 | NUR ---
HAND-OFF: Report given to Federico Dumont RN. Patient in stable condition.
[2019-01-27 20:00] VITALS: BP 148/79
[2019-01-27] MEDS: HYDROcodone/Acetamin 10/325 tab ORAL PRN (22:27)
[2019-01-28] VITALS: BP 161/82
[2019-01-28] MEDS: Albuterol/Ipratropium 3ml neb HHN SCH ×3 (01:18→19:22)
--- NOTE | 2019-01-28 02:30 | Progress Note ---
DATE: 01/27/2019 CARDIOLOGY PROGRESS NOTE SUBJECTIVE: The patient is at baseline unresponsive state on ventilator support via tracheostomy. Yesterday, he was transfused a unit of packed red blood cells. Monitored rhythm, sinus and sinus tachycardia. Multiple positive cultures from wounds and sputum has been obtained. OBJECTIVE: VITAL SIGNS: Blood pressure 150/86, heart rate 91, respirations 25, and temperature max 99.1. HEENT: Thick trach secretions. LUNGS: Bilateral rhonchi. HEART: Regular rhythm and rate. Normal S1, S2. ABDOMEN: Soft. G-tube intact. EXTREMITIES: No edema. LABORATORY DATA: White count 12.7 and hemoglobin 8.2. Potassium 3.5, BUN 18, and creatinine 0.6. Magnesium 1.9 and albumin 1.2. IMPRESSION: 1. Healthcare-acquired pneumonia. 2. Respiratory failure. 3. Advanced dementia. 4. Anemia status post transfusion. 5. Paroxysmal sinus tachycardia. 6. Chronic diastolic congestive heart failure. 7. Hypertensive heart disease with labile blood pressure, now under better control. 8. Secondary sinus tachycardia, improved off beta-agonist therapy. PLAN: 1. Ventilator support. 2. Antimicrobials. 3. Wound care. 4. Avoid beta-agonist. 5. Continue current antihypertensives with p.r.n. therapy for blood pressure spikes. 6. DVT and stress ulcer prophylaxis. 7. Adjust intravenous fluids based on clinical parameters and cardiorenal state. Jones Arauz M.D. DR: ERICA JOB#: [id number] CC:
[2019-01-28 04:00] VITALS: BP 165/78
[2019-01-28] MEDS: Piperacillin/Tazobactam 3.375 GM in NS 110 ML IVPB SCH ×3 (05:11→21:50)
[2019-01-28 05:36] LABS: HEMATOCRIT 24.9 % (42.0-52.0); HEMOGLOBIN 7.7 G/DL (14.2-18.0); MEAN CORPUSCULAR VOLUME 85 FL (80-99); PLATELET COUNT 315 K/UL (150-450); RED BLOOD COUNT 2.92 M/UL (4.70-6.10); RED CELL DISTRIBUTION WIDTH 20.1 % (11.6-14.8); WHITE BLOOD COUNT 9.5 K/UL (4.8-10.8)
[2019-01-28 05:49] LABS: ALANINE AMINOTRANSFERASE < 6 U/L (12-78); ALBUMIN 1.1 G/DL (3.4-5.0); ALBUMIN/GLOBULIN RATIO 0.2 (1.0-2.7); ALKALINE PHOSPHATASE 487 U/L (46-116); ANION GAP 8 mmol/L (5-15); ASPARTATE AMINO TRANSFERASE 26 U/L (15-37); BILIRUBIN,TOTAL 0.6 MG/DL (0.2-1.0); BLOOD UREA NITROGEN 24 mg/dL (7-18); CALCIUM 8.9 MG/DL (8.5-10.1); CARBON DIOXIDE 31 MMOL/L (21-32); CHLORIDE 105 MMOL/L (98-107); CREATININE 0.6 MG/DL (0.55-1.30); SODIUM 144 MMOL/L (136-145)
[2019-01-28 06:00] LABS: POTASSIUM 2.6 MMOL/L (3.5-5.1)
--- NOTE | 2019-01-28 07:06 | NUR ---
HAND-OFF: Report given to Jessica REEVES DOU.
--- NOTE | 2019-01-28 07:06 | NUR ---
NURSE NOTES: Received pt from Federico Barr RN in stable condition with no cardiopulmonary distress noted. Pt is obtunded, trache to vent, Portex 7 AC 12 TV 500 FiO2 40% Peep 5. GT noted running Vital AF 1.2 at 65cc/hr. Skin alterations noted. F/C noted draining yellow urine. Pt has a LH 20g IV. Bed is in lowest position with alarm on, side rails up x 3 and padded per seizure precaution, call light within reach. Will continue to monitor pt.
--- NOTE | 2019-01-28 07:20 | NUR ---
RESPIRATORY NOTE: Received pt. on 840 vent. Vent setting are: A/C rate of 12, Vt 500, FI02 40%, PEEP +5. No respiratory distress noted, pt. sP02 @ 100%. Ambu bag @ BS. Vent plugged on red outlet. Will continue to monitor pt.
--- NOTE | 2019-01-28 08:12 | General Progress Note ---
Assessment/Plan Problem List: (1) Decubitus ulcer ICD Codes: L89.90 - Pressure ulcer of unspecified site, unspecified stage SNOMED: 088681667 Qualifiers: Qualified Codes: L89.94 - Pressure ulcer of unspecified site, stage 4 (2) Anemia ICD Codes: D64.9 - Anemia, unspecified SNOMED: 053657610 Qualifiers: Qualified Codes: D64.9 - Anemia, unspecified (3) UTI (urinary tract infection), bacterial ICD Codes: N39.0 - Urinary tract infection, site not specified; A49.9 - Bacterial infection, unspecified SNOMED: 469808899 (4) Toxic metabolic encephalopathy ICD Codes: G92 - Toxic encephalopathy SNOMED: 111183903 (5) Aspiration pneumonia ICD Codes: J69.0 - Pneumonitis due to inhalation of food and vomit SNOMED: 525176996 (6) Encephalopathy ICD Codes: G93.40 - Encephalopathy, unspecified SNOMED: 72705892 (7) Sepsis ICD Codes: A41.9 - Sepsis, unspecified organism SNOMED: 77158288 Qualifiers: Qualified Codes: A41.9 - Sepsis, unspecified organism (8) Pneumonia ICD Codes: J18.9 - Pneumonia, unspecified organism SNOMED: 738091612 (9) Status epilepticus ICD Codes: G40.901 - Epilepsy, unspecified, not intractable, with status epilepticus SNOMED: 100661135 Status: stable Assessment/Plan: cont vent support resp rx gt feeds iv abx check stool ob and iron panel GI eval re: anemia transfuse wound care sz rx dc TB meds per dept of health Subjective ROS Limited/Unobtainable: Yes Constitutional: Reports: malaise, weakness HEENT: Reports: no symptoms Cardiovascular: Reports: no symptoms Respiratory: Reports: cough Gastrointestinal/Abdominal: Reports: difficulty swallowing Genitourinary: Reports: no symptoms Neurologic/Psychiatric: Reports: pre-existing deficit, seizure Endocrine: Reports: no symptoms Hematologic/Lymphatic: Reports: anemia Allergies: Coded Allergies: No Known Allergies (Unverified , 01/27/17) All Systems: reviewed and negative except above Subjective no events. labs noted. low k and h/h again. no bleeding. still no stool ob collected Objective Last 24 Hour Vital Signs Date Time Temp Pulse Resp B/P (MAP) Pulse Ox O2 Delivery O2 Flow Rate FiO2 6/26/19 07:27 89 16 100 Mechanical Ventilator 40 01/28/19 07:19 88 13 40 01/28/19 07:16 88 13 100 Mechanical Ventilator 40 01/28/19 05:06 79 29 40 01/28/19 04:00 98.0 73 20 165/78 (107) 100 01/28/19 04:00 40 01/28/19 04:00 Mechanical Ventilator 01/28/19 04:00 85 01/28/19 03:14 84 26 40 01/28/19 01:27 80 28 100 Mechanical Ventilator 40 01/28/19 01:17 78 26 99 Mechanical Ventilator 40 01/28/19 01:16 78 25 40 01/28/19 00:00 98.1 79 20 161/82 (108) 100 01/28/19 00:00 Mechanical Ventilator 01/28/19 00:00 40 01/28/19 00:00 Mechanical Ventilator 01/27/19 23:38 79 01/27/19 23:14 76 28 40 01/27/19 21:48 85 28 100 Mechanical Ventilator 40 01/27/19 21:38 74 28 100 Mechanical Ventilator 40 01/27/19 21:29 74 28 40 01/27/19 20:06 93 148/79 01/27/19 20:00 Mechanical Ventilator 01/27/19 20:00 40 01/27/19 20:00 98.2 93 22 148/79 (102) 100 01/27/19 19:10 88 26 100 Mechanical Ventilator 40 01/27/19 19:04 90 01/27/19 19:01 90 31 40 01/27/19 19:00 89 31 99 Mechanical Ventilator 40 01/27/19 16:38 88 34 40 01/27/19 16:00 40 01/27/19 16:00 Mechanical Ventilator 01/27/19 16:00 97.7 89 24 162/80 (107) 100 01/27/19 15:45 80 01/27/19 15:03 83 27 40 01/27/19 13:04 79 26 100 Mechanical Ventilator 40 01/27/19 13:03 80 26 40 01/27/19 12:58 100 14 81 Mechanical Ventilator 40 01/27/19 12:30 75 01/27/19 12:00 Mechanical Ventilator 01/27/19 12:00 40 01/27/19 12:00 97.7 75 26 153/78 (103) 100 01/27/19 10:57 77 29 40 01/27/19 09:46 79 21 100 Mechanical Ventilator 40 01/27/19 09:40 77 28 100 Mechanical Ventilator 40 01/27/19 08:46 98.9 01/27/19 08:45 84 21 40 01/27/19 08:15 107 151/75 Intake and Output 01/27/19 01/28/19 18:59 06:59 Intake Total 1498.925 ml 1930.125 ml Output Total 1200 ml 900 ml Balance 298.925 ml 1030.125 ml Free Water 150 ml 200 ml IV Total 568.925 ml 950.125 ml Tube Feeding 780 ml 780 ml Output Urine Total 1200 ml 900 ml Laboratory Tests 01/28/19 04:00: White Blood Count 9.5, Red Blood Count 2.92L, Hemoglobin 7.7L, Hematocrit 24.9L , Mean Corpuscular Volume 85, Mean Corpuscular Hemoglobin 26.4L, Mean Corpuscular Hemoglobin Concent 30.9L, Red Cell Distribution Width 20.1H, Platelet Count 315, Mean Platelet Volume 4.6L, Neutrophils (%) (Auto) , Lymphocytes (%) (Auto) , Monocytes (%) (Auto) , Eosinophils (%) (Auto) , Basophils (%) (Auto) , Neutrophils % (Manual) [Pending], Lymphocytes % (Manual) [Pending], Platelet Estimate [Pending], Platelet Morphology [Pending], Sodium Level 144, Potassium Level 2.6*L, Chloride Level 105, Carbon Dioxide Level 31, Anion Gap 8, Blood Urea Nitrogen 24H, Creatinine 0.6, Estimat Glomerular Filtration Rate , Glucose Level 117H, Calcium Level 8.9, Total Bilirubin 0.6, Aspartate Amino Transf (AST/SGOT) 26, Alanine Aminotransferase (ALT/SGPT) < 6L, Alkaline Phosphatase 487H, Total Protein 7.1, Albumin 1.1L, Globulin 6.0, Albumin/Globulin Ratio 0.2L Height (Feet): 5 Height (Inches): 5.00 Weight (Pounds): 127 Objective General Appearance: WD/WN, confused Neck: supple Cardiovascular: normal peripheral pulses, normal rate, regular rhythm Respiratory/Chest: chest wall non-tender, lungs clear, normal breath sounds, no respiratory distress Abdomen: normal bowel sounds, non tender, soft, no organomegaly Edema: no edema noted Arm (L), no edema noted Arm (R), no edema noted Leg (L), no edema noted Leg (R), no edema noted Pedal (L), no edema noted Pedal (R), no edema noted Generalized Neurologic: disoriented, unresponsive, aphasia Jarrod Vásquez MD Jan 28, 2019 08:12
[2019-01-28 08:28] VITALS: BP 160/81
[2019-01-28] MEDS: levETIRAcetam 500mg/5ml Liquid GT SCH ×2 (08:51→20:39)
[2019-01-28] MEDS: Ascorbic Acid 500mg tab GT SCH ×2 (08:51→17:09)
[2019-01-28] MEDS: Metoprolol Tartrate 50mg tab GT SCH ×2 (08:51→20:39)
[2019-01-28] MEDS: Heparin 5000 units/ml inj SUBQ SCH ×2 (08:53→20:44)
[2019-01-28] MEDS: Dakin's 0.125% Soln (Quarter Strength) 16oz TOPIC SCH (08:53)
[2019-01-28] MEDS: Colistin for inhalation INH SCH ×2 (09:19→21:38)
--- NOTE | 2019-01-28 10:57 | Infectious Diseases Prog Note ---
Assessment/Plan Assessment/Plan antibiotics : zosyn, inhaled colistin A 1. e.coli esbl UTI 2. acenitobacter pneumonia 3. respiratory failure 4. pulmonary TB s/p rx 5. leucocytosis improving 7. hypertension 8. anemia 9. seizures P 1. continue zosyn 1 more day 2. continue inhaled colistin 4 more days 3. will follow up cultures Subjective ROS Limited/Unobtainable: Yes Allergies: Coded Allergies: No Known Allergies (Unverified , 01/27/17) Objective Vital Signs Last 24 Hour Vital Signs Date Time Temp Pulse Resp B/P (MAP) Pulse Ox O2 Delivery O2 Flow Rate FiO2 01/28/19 09:19 79 22 100 Mechanical Ventilator 40 01/28/19 09:10 88 14 40 01/28/19 08:51 95 160/81 01/28/19 08:28 97.9 95 18 160/81 (107) 100 01/28/19 07:53 95 01/28/19 07:27 89 16 100 Mechanical Ventilator 40 01/28/19 07:19 88 13 40 01/28/19 07:16 88 13 100 Mechanical Ventilator 40 01/28/19 05:06 79 29 40 01/28/19 04:00 98.0 73 20 165/78 (107) 100 01/28/19 04:00 40 01/28/19 04:00 Mechanical Ventilator 01/28/19 04:00 85 01/28/19 03:14 84 26 40 01/28/19 01:27 80 28 100 Mechanical Ventilator 40 01/28/19 01:17 78 26 99 Mechanical Ventilator 40 01/28/19 01:16 78 25 40 01/28/19 00:00 98.1 79 20 161/82 (108) 100 01/28/19 00:00 Mechanical Ventilator 01/28/19 00:00 40 01/28/19 00:00 Mechanical Ventilator 01/27/19 23:38 79 01/27/19 23:14 76 28 40 01/27/19 21:48 85 28 100 Mechanical Ventilator 40 01/27/19 21:38 74 28 100 Mechanical Ventilator 40 01/27/19 21:29 74 28 40 01/27/19 20:06 93 148/79 01/27/19 20:00 Mechanical Ventilator 01/27/19 20:00 40 01/27/19 20:00 98.2 93 22 148/79 (102) 100 01/27/19 19:10 88 26 100 Mechanical Ventilator 40 01/27/19 19:04 90 01/27/19 19:01 90 31 40 01/27/19 19:00 89 31 99 Mechanical Ventilator 40 01/27/19 16:38 88 34 40 01/27/19 16:00 40 01/27/19 16:00 Mechanical Ventilator 01/27/19 16:00 97.7 89 24 162/80 (107) 100 01/27/19 15:45 80 01/27/19 15:03 83 27 40 01/27/19 13:04 79 26 100 Mechanical Ventilator 40 01/27/19 13:03 80 26 40 01/27/19 12:58 100 14 81 Mechanical Ventilator 40 01/27/19 12:30 75 01/27/19 12:00 Mechanical Ventilator 01/27/19 12:00 40 01/27/19 12:00 97.7 75 26 153/78 (103) 100 01/27/19 10:57 77 29 40 Height (Feet): 5 Height (Inches): 5.00 Weight (Pounds): 127 HEENT: status post trach Respiratory/Chest: lungs clear Cardiovascular: normal rate, regular rhythm, no gallop/murmur Abdomen: soft, non tender, other - GT Extremities: other - + edema Laboratory Tests Test 01/28/19 04:00 White Blood Count 9.5 K/UL (4.8-10.8) Red Blood Count 2.92 M/UL (4.70-6.10) L Hemoglobin 7.7 G/DL (14.2-18.0) L Hematocrit 24.9 % (42.0-52.0) L Mean Corpuscular Volume 85 FL (80-99) Mean Corpuscular Hemoglobin 26.4 PG (27.0-31.0) L Mean Corpuscular Hemoglobin Concent 30.9 G/DL (32.0-36.0) L Red Cell Distribution Width 20.1 % (11.6-14.8) H Platelet Count 315 K/UL (150-450) Mean Platelet Volume 4.6 FL (6.5-10.1) L Neutrophils (%) (Auto) % (45.0-75.0) Lymphocytes (%) (Auto) % (20.0-45.0) Monocytes (%) (Auto) % (1.0-10.0) Eosinophils (%) (Auto) % (0.0-3.0) Basophils (%) (Auto) % (0.0-2.0) Differential Total Cells Counted 100 Neutrophils % (Manual) 76 % (45-75) H Lymphocytes % (Manual) 12 % (20-45) L Monocytes % (Manual) 6 % (1-10) Eosinophils % (Manual) 6 % (0-3) H Basophils % (Manual) 0 % (0-2) Band Neutrophils 0 % (0-8) Platelet Estimate Adequate Platelet Morphology Normal Hypochromasia 3+ Anisocytosis 2+ Sodium Level 144 MMOL/L (136-145) Potassium Level 2.6 MMOL/L (3.5-5.1) *L Chloride Level 105 MMOL/L (98-107) Carbon Dioxide Level 31 MMOL/L (21-32) Anion Gap 8 mmol/L (5-15) Blood Urea Nitrogen 24 mg/dL (7-18) H Creatinine 0.6 MG/DL (0.55-1.30) Estimat Glomerular Filtration Rate mL/min (>60) Glucose Level 117 MG/DL (74-106) H Calcium Level 8.9 MG/DL (8.5-10.1) Total Bilirubin 0.6 MG/DL (0.2-1.0) Aspartate Amino Transf (AST/SGOT) 26 U/L (15-37) Alanine Aminotransferase (ALT/SGPT) < 6 U/L (12-78) L Alkaline Phosphatase 487 U/L (46-116) H Total Protein 7.1 G/DL (6.4-8.2) Albumin 1.1 G/DL (3.4-5.0) L Globulin 6.0 g/dL Albumin/Globulin Ratio 0.2 (1.0-2.7) L Current Medications Medications (Trade) Dose Ordered Sig/Iram Route PRN Reason Start Time Stop Time Status Last Admin Dose Admin Acetaminophen (Tylenol) 650 mg Q4H PRN NG fever 01/23/19 10:21 02/22/19 10:20 01/27/19 08:16 Acetaminophen/ Hydrocodone Bitart ([employer] 10/325) 1 tab Q4H PRN ORAL For Pain 01/23/19 15:45 01/30/19 15:44 01/27/19 22:27 Albuterol/ Ipratropium (Albuterol/ Ipratropium) 3 ml Q6HRT HHN 01/23/19 13:00 01/28/19 12:59 01/28/19 07:16 Ascorbic Acid (Vitamin C) 500 mg BID GT 01/23/19 11:00 02/22/19 10:59 01/28/19 08:51 Colistimethate Sodium (Colistin *inhalation use only*) 75 mg Q12HR@10,22 INH 01/26/19 12:00 02/02/19 11:59 01/28/19 09:19 Famotidine (Pepcid) 20 mg BID GT 01/23/19 10:21 02/22/19 10:20 01/28/19 08:51 Heparin Sodium (Porcine) (Heparin 5000 units/ml) 5,000 units EVERY 12 HOURS SUBQ 01/23/19 21:00 02/22/19 20:59 01/27/19 20:09 Levetiracetam (Keppra) 750 mg Q12HR GT 01/23/19 10:21 02/22/19 10:20 01/28/19 08:51 Metoprolol Tartrate (Lopressor) 50 mg Q12HR GT 01/25/19 09:00 02/24/19 08:59 01/28/19 08:51 Piperacillin Sod/ Tazobactam Sod 3.375 gm/Sodium Chloride 110 ml @ 27.5 mls/hr EVERY 8 HOURS IVPB 01/23/19 06:00 01/28/19 23:59 01/28/19 05:11 Sodium Hypochlorite (Dakin's Quarter Strength) 1 applic DAILY TOPIC 01/25/19 09:00 02/23/19 17:59 01/28/19 08:53 Sodium Chloride 1,000 ml @ 75 mls/hr Q20Q27N IV 01/26/19 02:45 02/25/19 02:44 01/28/19 08:50 Sergio Urban MD Jan 28, 2019 10:57
[2019-01-28] MEDS: HYDROcodone/Acetamin 10/325 tab ORAL PRN (11:11)
--- NOTE | 2019-01-28 11:27 | NUR ---
CASE MANAGEMENT:REVIEW 01/28/19 SI: AC/CHR RENAL FAILURE. POSSIBLE SEPSIS PULMONARY TUBERCULOSIS. TRACH 97.9 95 18 160/81 99% ON VENT SUPPORT H/H-7.7/24.9 IS: TRANSFUSE 1 UNIT COLISTIN INH Q12 IVF@75/HR IV ZOSYN Q8HRS LOPRESSOR GT Q12 HEPARIN SQ Q12 DUONEB HHN Q6HRS RTC KEPPRA GT Q12 : STEP DOWN UNIT DCP: FROM [facility]
[2019-01-28 12:00] VITALS: BP 154/70
--- NOTE | 2019-01-28 13:44 | Surgery Progress Note ---
Surgery Progress Note Subjective Symptoms: other Objective Last 24 Hour Vital Signs Date Time Temp Pulse Resp B/P (MAP) Pulse Ox O2 Delivery O2 Flow Rate FiO2 01/28/19 12:00 98.4 88 14 154/70 (98) 100 01/28/19 12:00 40 01/28/19 11:28 87 13 40 01/28/19 09:30 83 28 99 Mechanical Ventilator 40 01/28/19 09:19 79 22 100 Mechanical Ventilator 40 01/28/19 09:10 88 14 40 01/28/19 08:51 95 160/81 01/28/19 08:28 97.9 95 18 160/81 (107) 100 01/28/19 08:00 40 01/28/19 07:53 95 01/28/19 07:27 89 16 100 Mechanical Ventilator 40 01/28/19 07:19 88 13 40 01/28/19 07:16 88 13 100 Mechanical Ventilator 40 01/28/19 05:06 79 29 40 01/28/19 04:00 98.0 73 20 165/78 (107) 100 01/28/19 04:00 40 01/28/19 04:00 Mechanical Ventilator 01/28/19 04:00 85 01/28/19 03:14 84 26 40 01/28/19 01:27 80 28 100 Mechanical Ventilator 40 01/28/19 01:17 78 26 99 Mechanical Ventilator 40 01/28/19 01:16 78 25 40 01/28/19 00:00 98.1 79 20 161/82 (108) 100 01/28/19 00:00 Mechanical Ventilator 01/28/19 00:00 40 01/28/19 00:00 Mechanical Ventilator 01/27/19 23:38 79 01/27/19 23:14 76 28 40 01/27/19 21:48 85 28 100 Mechanical Ventilator 40 01/27/19 21:38 74 28 100 Mechanical Ventilator 40 01/27/19 21:29 74 28 40 01/27/19 20:06 93 148/79 01/27/19 20:00 Mechanical Ventilator 01/27/19 20:00 40 01/27/19 20:00 98.2 93 22 148/79 (102) 100 01/27/19 19:10 88 26 100 Mechanical Ventilator 40 01/27/19 19:04 90 01/27/19 19:01 90 31 40 01/27/19 19:00 89 31 99 Mechanical Ventilator 40 01/27/19 16:38 88 34 40 01/27/19 16:00 40 01/27/19 16:00 Mechanical Ventilator 01/27/19 16:00 97.7 89 24 162/80 (107) 100 01/27/19 15:45 80 01/27/19 15:03 83 27 40 I&O Intake and Output 01/27/19 01/28/19 19:00 07:00 Intake Total 1356.250 ml 1915.0 ml Output Total 1200 ml 900 ml Balance 156.250 ml 1015.0 ml Free Water 150 ml 200 ml IV Total 491.250 ml 935.0 ml Tube Feeding 715 ml 780 ml Output Urine Total 1200 ml 900 ml Dressing: saturated Wound: other Drains: other Cardiovascular: RSR Respiratory: decreased breath sounds Abdomen: soft, present bowel sounds, non-distended Extremities: other Laboratory Tests Test 01/28/19 04:00 White Blood Count 9.5 K/UL (4.8-10.8) Red Blood Count 2.92 M/UL (4.70-6.10) L Hemoglobin 7.7 G/DL (14.2-18.0) L Hematocrit 24.9 % (42.0-52.0) L Mean Corpuscular Volume 85 FL (80-99) Mean Corpuscular Hemoglobin 26.4 PG (27.0-31.0) L Mean Corpuscular Hemoglobin Concent 30.9 G/DL (32.0-36.0) L Red Cell Distribution Width 20.1 % (11.6-14.8) H Platelet Count 315 K/UL (150-450) Mean Platelet Volume 4.6 FL (6.5-10.1) L Neutrophils (%) (Auto) % (45.0-75.0) Lymphocytes (%) (Auto) % (20.0-45.0) Monocytes (%) (Auto) % (1.0-10.0) Eosinophils (%) (Auto) % (0.0-3.0) Basophils (%) (Auto) % (0.0-2.0) Differential Total Cells Counted 100 Neutrophils % (Manual) 76 % (45-75) H Lymphocytes % (Manual) 12 % (20-45) L Monocytes % (Manual) 6 % (1-10) Eosinophils % (Manual) 6 % (0-3) H Basophils % (Manual) 0 % (0-2) Band Neutrophils 0 % (0-8) Platelet Estimate Adequate Platelet Morphology Normal Hypochromasia 3+ Anisocytosis 2+ Sodium Level 144 MMOL/L (136-145) Potassium Level 2.6 MMOL/L (3.5-5.1) *L Chloride Level 105 MMOL/L (98-107) Carbon Dioxide Level 31 MMOL/L (21-32) Anion Gap 8 mmol/L (5-15) Blood Urea Nitrogen 24 mg/dL (7-18) H Creatinine 0.6 MG/DL (0.55-1.30) Estimat Glomerular Filtration Rate mL/min (>60) Glucose Level 117 MG/DL (74-106) H Calcium Level 8.9 MG/DL (8.5-10.1) Total Bilirubin 0.6 MG/DL (0.2-1.0) Aspartate Amino Transf (AST/SGOT) 26 U/L (15-37) Alanine Aminotransferase (ALT/SGPT) < 6 U/L (12-78) L Alkaline Phosphatase 487 U/L (46-116) H Total Protein 7.1 G/DL (6.4-8.2) Albumin 1.1 G/DL (3.4-5.0) L Globulin 6.0 g/dL Albumin/Globulin Ratio 0.2 (1.0-2.7) L Plan Problems: (1) HCAP (healthcare-associated pneumonia) (2) Decubitus ulcer Assessment & Plan: Pt presented on admission with multiple pressure injuries. Resolving pressure injury L occipital. Dry pink epithelial noted. Skin assessed under trach collar and no areas of concerns noted . R and L ears dry . Full thickness pressure injury with undermining thoracic spine . Base of wound 75% granular with 25% fibrinous slough. Mild odor noted.(L)8.5cm x (W)6.5cmx(D) 1cm, undermining clockwise 6-1 by 3cm @12o'clock. Full thickness pressure injury L trochanter. 100% mixed necrosis/slough at base of wound and undermined borders.Non-blanchable erythema with induration noted periwound. Mild odor noted .(L)3.5cm x (W)4.5cm. Resolving DTPI L ischium .Centrally wound is red and fluctuant .Bone is palpable. Black with red tinged indurated borders noted. (L) (L)4.4cm x (W) 3.2cm. Ful thickness pressure injury R Iliac with 10% velazquez slough centrally.90% granular.Edges adherent and flat. (L)3cm x (W)3.2cm x(D)0.2cm. No odor or exudate noted.Darker skin tone without fluctuance noted periwound. Full thickness pressure injury with undermining R trochanter. Base of wound 60^ beefy red with 40% velazquez slough.erythejma noted along borders. Small amt seropurulent exudate that is mildly odorous.(L)5.5cm x (W)6.6cm x (D)1.5cm, undermining clockwise 12-12 by 4.5cm @3o'clock. Full thickness pressure injury R ischium (L)4.2cm x (W)5.5cm x(D)1.6cm, undermining 12-12 by 1.8cm @12o'clock .Base of wound 60% granular ,40% velazquez slough undermined borders.Wound has mild odor with small amt seropurulent exudate.darker skin tone that is indurated periwound. Resolving pressure injury sacrum . Base of wound dry with pink epithelial.with scattered shearing within base of wound. L heel boggy with non-blanchable erythema. DTPI R heel and Lateral aspect .Base of wound is maroon with fluctuance. (L) 4.5cm x (W)7.3cm. Tx.Plan. Cleanse wounds Thoracic and lumbar spine with Dakin's 0.125% segun. Pack with Dakin's moist gauze. Apply Moisture Barrier Paste periwound. Cover each wound with Optifoam drsg.Twice Daily and prn. Cleanse wound L trochanter and L ischium with Dakin's 0.125% segun. Pack with Dakin's moist Gauze.Apply Moisture Barrier paste periwound. Cover with Optifoam drsg. Twice daily and prn. Cleanse wounds R iliac ,R trochanter,R ischium with Dakin's 0.125% segun. Pack with Dakin's moist gauze. Apply Moisture Barrier Paste periwound. Cover with Optifoam drsg Twice daily and prn. Apply Moisture Barrier paste to sacrum. Cover with Optifoam drsg. Change every 3 days and prn. Apply Cavilon Skin Barrier to Both heels. Cover each heel with Optifoam drsg. Change every 7 days and prn. Air Fluidized Mattress. Reposition at least every 2hours or as tolerated. Off-load heels with pillow. Spoke with family. I explained to them that his condition has been deteriorating for some time now. i have seen him in the past and during each admission his wounds are deteriorating despite best efforts at care. He has received adequate nutritional support/supplementation, adequate wound care, and appropriate prevention while in hospital during each admission but wounds continue to deteriorate. they expressed understanding. cont with current care plan (3) Anemia (4) UTI (urinary tract infection), bacterial (5) Toxic metabolic encephalopathy (6) Dementia (7) Dyspnea (8) Respiratory distress (9) Hyperlipidemia (10) Aspiration pneumonia (11) Aspiration pneumonia (12) Vitamin B 12 deficiency (13) Encephalopathy (14) Sepsis Assessment & Plan: Leukocytosis trending down. cont with IV fluids Cont with IV abx as per ID CXR noted labs noted Thank you for this consultation we will follow with recommendations (15) Pneumonia (16) Status epilepticus (17) HTN (hypertension) (18) Encephalopathy acute (19) BPH (benign prostatic hyperplasia) (20) Abnormal LFTs (21) Probable sepsis (2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 (23) Zev Mchugh Jan 28, 2019 13:44
--- NOTE | 2019-01-28 14:41 | Pulmonology Progress Note ---
Assessment/Plan Assessment/Plan Pulmonary CCM Progress Note Assessment/Plan ASSESSMENT: toxic metabolic encephalopathy, history of stroke, chronic respiratory failure, hyponatremia, acute on chronic renal failure, chronic encephalopathy, seizure disorder, pulmonary tuberculosis, and anemia possible sepsis, leukocytosis PLAN care noted TB meds TFN PRN IV antibiotics respiratory care Ventilatory support- no wean SNF meds noted supportive care as is suction as needed oxygen therapy nursing notes reviewed care noted and discussed prognosis poor overall all cultures and configuration consultant notes reviewed impression, plan, and exam edited and reviewed in detail care discussed with RN Subjective ROS Limited/Unobtainable: Yes Allergies: Coded Allergies: No Known Allergies Subjective on vent poor loc Objective Vital Signs Noted Objective GENERAL APPEARANCE: The patient is a chronically ill-appearing male, in no apparent distress. unresponsive. NECK: Supple. Trach site is clean, dry, and intact. CARDS: RRR without MRG LUNGS: occasional rhonchi. moderate air entry; no wheeze ABDOMEN: Soft, nontender, and nondistended. GT EXTREMITIES: No clubbing or cyanosis. reduced skin turgor multiple decubitus NEURO: obtunded Laboratory Tests 01/26/19 03:00: White Blood Count 15.1H, Red Blood Count 2.58L, Hemoglobin 6.8*L, Hematocrit 22.1L, Mean Corpuscular Volume 86, Mean Corpuscular Hemoglobin 26.2L, Mean Corpuscular Hemoglobin Concent 30.5L, Red Cell Distribution Width 21.2H, Platelet Count 287, Mean Platelet Volume 4.3L, Neutrophils (%) (Auto) , Lymphocytes (%) (Auto) , Monocytes (%) (Auto) , Eosinophils (%) (Auto) , Basophils (%) (Auto) , Neutrophils % (Manual) [Pending], Lymphocytes % (Manual) [Pending], Platelet Estimate [Pending], Platelet Morphology [Pending], Vancomycin Level Trough 10.2 Current Medications Medications (Trade) Dose Ordered Sig/Iram Route PRN Reason Start Time Stop Time Status Last Admin Dose Admin Acetaminophen (Tylenol) 650 mg Q4H PRN NG fever 01/23/19 10:21 02/22/19 10:20 01/25/19 08:14 Acetaminophen/ Hydrocodone Bitart (Phelps 10/325) 1 tab Q4H PRN ORAL For Pain 01/23/19 15:45 01/30/19 15:44 01/26/19 01:45 Albuterol/ Ipratropium (Albuterol/ Ipratropium) 3 ml Q6HRT HHN 01/23/19 13:00 01/28/19 12:59 01/26/19 07:34 Ascorbic Acid (Vitamin C) 500 mg BID GT 01/23/19 11:00 02/22/19 10:59 01/25/19 17:02 Famotidine (Pepcid) 20 mg BID GT 01/23/19 10:21 02/22/19 10:20 01/25/19 17:02 Heparin Sodium (Porcine) (Heparin 5000 units/ml) 5,000 units EVERY 12 HOURS SUBQ 01/23/19 21:00 02/22/19 20:59 01/25/19 21:06 Levetiracetam (Keppra) 750 mg Q12HR GT 01/23/19 10:21 02/22/19 10:20 01/25/19 21:07 Metoprolol Tartrate (Lopressor) 50 mg Q12HR GT 01/25/19 09:00 02/24/19 08:59 01/25/19 21:06 Piperacillin Sod/ Tazobactam Sod 3.375 gm/Sodium Chloride 110 ml @ 27.5 mls/hr EVERY 8 HOURS IVPB 01/23/19 06:00 01/28/19 05:59 01/26/19 05:14 Sodium Hypochlorite (Dakin's Quarter Strength) 1 applic DAILY TOPIC 01/25/19 09:00 02/23/19 17:59 01/25/19 08:14 Sodium Chloride 1,000 ml @ 75 mls/hr [id number] IV 01/26/19 02:45 02/25/19 02:44 01/26/19 03:02 Vancomycin HCl (Vanco rx to dose) 1 ea DAILY PRN MISC Per rx protocol 01/23/19 02:45 02/22/19 02:44 Vancomycin HCl 1.25 gm/Dextrose 275 ml @ 183.333 mls/hr Q24H IVPB 01/26/19 06:00 01/31/19 05:59 01/26/19 05:14 Subjective ROS Limited/Unobtainable: No Allergies: Coded Allergies: No Known Allergies (Unverified , 01/27/17) Objective Last 24 Hour Vital Signs Date Time Temp Pulse Resp B/P (MAP) Pulse Ox O2 Delivery O2 Flow Rate FiO2 01/28/19 14:02 71 14 40 01/28/19 13:00 Mechanical Ventilator 40 01/28/19 13:00 Mechanical Ventilator 40 01/28/19 12:00 Mechanical Ventilator 01/28/19 12:00 98.4 88 14 154/70 (98) 100 01/28/19 12:00 40 01/28/19 11:28 87 13 40 01/28/19 09:30 83 28 99 Mechanical Ventilator 40 01/28/19 09:19 79 22 100 Mechanical Ventilator 40 01/28/19 09:10 88 14 40 01/28/19 08:51 95 160/81 01/28/19 08:28 97.9 95 18 160/81 (107) 100 01/28/19 08:00 40 01/28/19 08:00 Mechanical Ventilator 01/28/19 07:53 95 01/28/19 07:27 89 16 100 Mechanical Ventilator 40 01/28/19 07:19 88 13 40 01/28/19 07:16 88 13 100 Mechanical Ventilator 40 01/28/19 05:06 79 29 40 01/28/19 04:00 98.0 73 20 165/78 (107) 100 01/28/19 04:00 40 01/28/19 04:00 Mechanical Ventilator 01/28/19 04:00 85 01/28/19 03:14 84 26 40 01/28/19 01:27 80 28 100 Mechanical Ventilator 40 01/28/19 01:17 78 26 99 Mechanical Ventilator 40 01/28/19 01:16 78 25 40 01/28/19 00:00 98.1 79 20 161/82 (108) 100 01/28/19 00:00 Mechanical Ventilator 01/28/19 00:00 40 01/28/19 00:00 Mechanical Ventilator 01/27/19 23:38 79 01/27/19 23:14 76 28 40 01/27/19 21:48 85 28 100 Mechanical Ventilator 40 01/27/19 21:38 74 28 100 Mechanical Ventilator 40 01/27/19 21:29 74 28 40 01/27/19 20:06 93 148/79 01/27/19 20:00 Mechanical Ventilator 01/27/19 20:00 40 01/27/19 20:00 98.2 93 22 148/79 (102) 100 01/27/19 19:10 88 26 100 Mechanical Ventilator 40 01/27/19 19:04 90 01/27/19 19:01 90 31 40 01/27/19 19:00 89 31 99 Mechanical Ventilator 40 01/27/19 16:38 88 34 40 01/27/19 16:00 40 01/27/19 16:00 Mechanical Ventilator 01/27/19 16:00 97.7 89 24 162/80 (107) 100 01/27/19 15:45 80 01/27/19 15:03 83 27 40 Intake and Output 01/27/19 01/28/19 19:00 07:00 Intake Total 1356.250 ml 2105.0 ml Output Total 1200 ml 900 ml Balance 156.250 ml 1205.0 ml Free Water 150 ml 250 ml IV Total 491.250 ml 1010.0 ml Tube Feeding 715 ml 845 ml Output Urine Total 1200 ml 900 ml Laboratory Tests 01/28/19 04:00: White Blood Count 9.5, Red Blood Count 2.92L, Hemoglobin 7.7L, Hematocrit 24.9L , Mean Corpuscular Volume 85, Mean Corpuscular Hemoglobin 26.4L, Mean Corpuscular Hemoglobin Concent 30.9L, Red Cell Distribution Width 20.1H, Platelet Count 315, Mean Platelet Volume 4.6L, Neutrophils (%) (Auto) , Lymphocytes (%) (Auto) , Monocytes (%) (Auto) , Eosinophils (%) (Auto) , Basophils (%) (Auto) , Differential Total Cells Counted 100, Neutrophils % ( Manual) 76H, Lymphocytes % (Manual) 12L, Monocytes % (Manual) 6, Eosinophils % ( Manual) 6H, Basophils % (Manual) 0, Band Neutrophils 0, Platelet Estimate Adequate, Platelet Morphology Normal, Hypochromasia 3+, Anisocytosis 2+, Sodium Level 144, Potassium Level 2.6*L, Chloride Level 105, Carbon Dioxide Level 31, Anion Gap 8, Blood Urea Nitrogen 24H, Creatinine 0.6, Estimat Glomerular Filtration Rate , Glucose Level 117H, Calcium Level 8.9, Total Bilirubin 0.6, Aspartate Amino Transf (AST/SGOT) 26, Alanine Aminotransferase (ALT/SGPT) < 6L, Alkaline Phosphatase 487H, Total Protein 7.1, Albumin 1.1L, Globulin 6.0, Albumin/Globulin Ratio 0.2L Current Medications Medications (Trade) Dose Ordered Sig/Iram Route PRN Reason Start Time Stop Time Status Last Admin Dose Admin Acetaminophen (Tylenol) 650 mg Q4H PRN NG fever 01/23/19 10:21 02/22/19 10:20 01/27/19 08:16 Acetaminophen/ Hydrocodone Bitart (Phelps 10/325) 1 tab Q4H PRN ORAL For Pain 01/23/19 15:45 01/30/19 15:44 01/28/19 11:11 Albuterol/ Ipratropium (Albuterol/ Ipratropium) 3 ml Q6HRT HHN 01/28/19 19:00 02/02/19 18:59 Ascorbic Acid (Vitamin C) 500 mg BID GT 01/23/19 11:00 02/22/19 10:59 01/28/19 08:51 Colistimethate Sodium (Colistin *inhalation use only*) 75 mg Q12HR@ INH 01/26/19 12:00 02/02/19 11:59 01/28/19 09:19 Famotidine (Pepcid) 20 mg BID GT 01/23/19 10:21 02/22/19 10:20 01/28/19 08:51 Heparin Sodium (Porcine) (Heparin 5000 units/ml) 5,000 units EVERY 12 HOURS SUBQ 01/23/19 21:00 02/22/19 20:59 01/27/19 20:09 Levetiracetam (Keppra) 750 mg Q12HR GT 01/23/19 10:21 02/22/19 10:20 01/28/19 08:51 Metoprolol Tartrate (Lopressor) 50 mg Q12HR GT 01/25/19 09:00 02/24/19 08:59 01/28/19 08:51 Piperacillin Sod/ Tazobactam Sod 3.375 gm/Sodium Chloride 110 ml @ 27.5 mls/hr EVERY 8 HOURS IVPB 01/23/19 06:00 01/29/19 23:59 01/28/19 05:11 Sodium Hypochlorite (Dakin's Quarter Strength) 1 applic DAILY TOPIC 01/25/19 09:00 02/23/19 17:59 01/28/19 08:53 Sodium Chloride 1,000 ml @ 75 mls/hr [id number] IV 01/26/19 02:45 02/25/19 02:44 01/28/19 08:50 Jones Rasmussen MD Jan 28, 2019 14:41
[2019-01-28 16:00] VITALS: BP 132/88
--- NOTE | 2019-01-28 16:00 | NUR ---
SS note Chart reviewed; patient is from [facility]. No SW needs identified at this time. SW to follow further as needed.
--- NOTE | 2019-01-28 18:40 | NUR ---
NURSE NOTES: Family at bedside visiting pt, education provided for family TB testing. Family expressed their concern stating "we have someone with active TB at home." I instructed them to follow up with primary care doctor as soon as possible and possibility of transmission. Family verbalized understanding.
--- NOTE | 2019-01-28 19:10 | NUR ---
NURSE NOTES: Received patient from LALA Lopez. patient is obtunded and unable to follow commands. no s/sx of pain noted at this time. family is currently at bedside. vent to trach settings are as followed: Portex: 7, AC: 12, TV: 500, FiO2: 40, PEEP: 5. No s/sx of respiratory distress noted at this time. cardiac care unit nurse currently shows SR, with no s/sx of cardiac distress. G-tube site is patent and intact, running feeding at prescribed rate. IV site is patent and intact, running prescribed antibiotic at this time. Manzo catheter is patent and intact, draining well. bed in lowest position and locked, padded siderails up X3, call light within reach. will continue to monitor.
--- NOTE | 2019-01-28 19:25 | NUR ---
HAND-OFF: Report given to LALA Whitney. Pt in stable condition.
[2019-01-28 20:00] VITALS: BP 152/85
[2019-01-28] MEDS: Acetaminophen 650mg/20.3ml NG PRN (20:41)
[2019-01-28] MEDS ORDERED: Sorbitol Solution UD 30ml GT SCH (21:00)
--- NOTE | 2019-01-28 21:16 | General Progress Note ---
Assessment/Plan Status: stable Assessment/Plan: GI CONSULT ATSP for anemia. Dictated D/w family - they request conservative management, given poor health No plans for endoscopy at this time, unless acute change in status Thank you Oli Amaya MD Subjective Allergies: Coded Allergies: No Known Allergies (Unverified , 01/27/17) Objective Last 24 Hour Vital Signs Date Time Temp Pulse Resp B/P (MAP) Pulse Ox O2 Delivery O2 Flow Rate FiO2 01/28/19 20:39 92 152/85 01/28/19 20:32 98 28 40 01/28/19 20:00 92 01/28/19 20:00 98.8 89 18 152/85 (107) 100 01/28/19 20:00 Mechanical Ventilator 01/28/19 20:00 40 01/28/19 19:57 89 16 100 Mechanical Ventilator 40 01/28/19 19:30 88 15 100 Mechanical Ventilator 40 01/28/19 19:22 89 15 100 Mechanical Ventilator 40 01/28/19 19:21 89 24 40 01/28/19 17:30 83 18 40 01/28/19 16:00 40 01/28/19 16:00 99.1 96 12 132/88 (103) 100 01/28/19 16:00 Mechanical Ventilator 01/28/19 16:00 89 01/28/19 15:28 78 15 40 01/28/19 14:02 71 14 40 01/28/19 13:00 Mechanical Ventilator 40 01/28/19 13:00 Mechanical Ventilator 40 01/28/19 12:00 Mechanical Ventilator 01/28/19 12:00 98.4 88 14 154/70 (98) 100 01/28/19 12:00 40 01/28/19 11:52 80 01/28/19 11:28 87 13 40 01/28/19 09:30 83 28 99 Mechanical Ventilator 40 01/28/19 09:19 79 22 100 Mechanical Ventilator 40 01/28/19 09:10 88 14 40 01/28/19 08:51 95 160/81 01/28/19 08:28 97.9 95 18 160/81 (107) 100 01/28/19 08:00 40 01/28/19 08:00 Mechanical Ventilator 01/28/19 07:53 95 01/28/19 07:27 89 16 100 Mechanical Ventilator 40 01/28/19 07:19 88 13 40 01/28/19 07:16 88 13 100 Mechanical Ventilator 40 01/28/19 05:06 79 29 40 01/28/19 04:00 98.0 73 20 165/78 (107) 100 01/28/19 04:00 40 01/28/19 04:00 Mechanical Ventilator 01/28/19 04:00 85 01/28/19 03:14 84 26 40 01/28/19 01:27 80 28 100 Mechanical Ventilator 40 01/28/19 01:17 78 26 99 Mechanical Ventilator 40 01/28/19 01:16 78 25 40 01/28/19 00:00 98.1 79 20 161/82 (108) 100 01/28/19 00:00 Mechanical Ventilator 01/28/19 00:00 40 01/28/19 00:00 Mechanical Ventilator 01/27/19 23:38 79 01/27/19 23:14 76 28 40 01/27/19 21:48 85 28 100 Mechanical Ventilator 40 01/27/19 21:38 74 28 100 Mechanical Ventilator 40 01/27/19 21:29 74 28 40 Intake and Output 01/27/19 01/28/19 19:00 07:00 Intake Total 1356.250 ml 2105.0 ml Output Total 1200 ml 900 ml Balance 156.250 ml 1205.0 ml Free Water 150 ml 250 ml IV Total 491.250 ml 1010.0 ml Tube Feeding 715 ml 845 ml Output Urine Total 1200 ml 900 ml Laboratory Tests 01/28/19 04:00: White Blood Count 9.5, Red Blood Count 2.92L, Hemoglobin 7.7L, Hematocrit 24.9L , Mean Corpuscular Volume 85, Mean Corpuscular Hemoglobin 26.4L, Mean Corpuscular Hemoglobin Concent 30.9L, Red Cell Distribution Width 20.1H, Platelet Count 315, Mean Platelet Volume 4.6L, Neutrophils (%) (Auto) , Lymphocytes (%) (Auto) , Monocytes (%) (Auto) , Eosinophils (%) (Auto) , Basophils (%) (Auto) , Differential Total Cells Counted 100, Neutrophils % ( Manual) 76H, Lymphocytes % (Manual) 12L, Monocytes % (Manual) 6, Eosinophils % ( Manual) 6H, Basophils % (Manual) 0, Band Neutrophils 0, Platelet Estimate Adequate, Platelet Morphology Normal, Hypochromasia 3+, Anisocytosis 2+, Sodium Level 144, Potassium Level 2.6*L, Chloride Level 105, Carbon Dioxide Level 31, Anion Gap 8, Blood Urea Nitrogen 24H, Creatinine 0.6, Estimat Glomerular Filtration Rate , Glucose Level 117H, Calcium Level 8.9, Total Bilirubin 0.6, Aspartate Amino Transf (AST/SGOT) 26, Alanine Aminotransferase (ALT/SGPT) < 6L, Alkaline Phosphatase 487H, Total Protein 7.1, Albumin 1.1L, Globulin 6.0, Albumin/Globulin Ratio 0.2L Height (Feet): 5 Height (Inches): 5.00 Weight (Pounds): 127 Oli Amaya MD Jan 28, 2019 21:16
[2019-01-29] VITALS: BP 159/85
[2019-01-29] MEDS: Albuterol/Ipratropium 3ml neb HHN SCH ×4 (00:52→21:31)
--- NOTE | 2019-01-29 02:00 | NUR ---
NURSE NOTES: patient is resting in bed. patient is tolerating current vent settings well. no s/sx of pain nor respiratory distress at this time. 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 G-tube site is patent and intact, running feeding at prescribed rate. HOB elevated. no residual noted. IV site is patent and intact. repositioned with pillow supports. will continue to monitor.
[2019-01-29 04:00] VITALS: BP 158/86
--- NOTE | 2019-01-29 04:15 | Consultation ---
DATE OF CONSULTATION: 01/28/2019 CHIEF COMPLAINT: I was asked to see this patient by Dr. Jarrod Vásquez for evaluation of severe anemia. HISTORY OF PRESENT ILLNESS: The patient is an unfortunate 73-year-old man with multiple medical problems, who is a tracheostomy patient from a [facility]pc, who was brought into the hospital. The patient has been found to have profound anemia requiring transfusion, and therefore this consultation is generated. The patient herself is unable to provide any history. Most information is only available from the chart. The patient has had respiratory failure requiring a tracheostomy and also dysphagia requiring gastrostomy tube placement. The patient has had some degree of cirrhotic changes on CT scan with negative hepatis B and C markers. The patient's and daughter were interviewed about the patient's overall poor health. They stated that given the patient's age and overall poor health, he would rather be conservative and not to have procedure unless there is severe acute bleeding. PAST MEDICAL HISTORY: History of seizure disorder, stroke, pulmonary tuberculosis, and respiratory failure. PAST SURGICAL HISTORY: History of gastrostomy tube and tracheostomy tube placement. FAMILY HISTORY: Noncontributory. SOCIAL HISTORY: The patient has had no history of smoking or drinking. ALLERGIES: None. MEDICATIONS: Noted. REVIEW OF SYSTEMS: Unobtainable. PHYSICAL EXAMINATION: GENERAL: Debilitated thin man, seen in his room. HEENT: Normocephalic and atraumatic. Tracheostomy catheter was noted. CHEST: Revealed coarse breath sounds. CARDIOVASCULAR: Revealed regular rate. ABDOMEN: Soft. There is a gastrostomy tube. EXTREMITIES: Revealed contractures. LABORATORY DATA: Noted. ASSESSMENT: The patient has shown bilirubinemia, requiring a transfusion. At this time, there is no evidence of coffee-ground emesis or severe gastrointestinal bleeding. The patient's overall health is very poor and that includes factors associated with respiratory failure requiring a tracheostomy catheter, obtunded state of mind. The family requested therefore I will not plan on any endoscopy at this time. The patient's albumin is low down to 1.1 poor prognostic indicator and he may have some degree of proteinuria he also appears malnourished at bedside. The patient's overall prognosis is, therefore, very poor, and therefore he will be managed conservatively. RECOMMENDATIONS: 1. Resume tube feeding. 2. Laxatives for constipation. 3. Monitor CBC. 4. Proton pump inhibitor. 5. Reflux precautions. Thank you for asking me to participate in the care of this patient. Oli Amaya M.D. DR: Monica JOB#: [id number] CC:
[2019-01-29 05:24] LABS: BASOPHILS % (AUTO) 0.3 % (0.0-2.0); EOSINOPHILS % (AUTO) 7.5 % (0.0-3.0); HEMATOCRIT 26.4 % (42.0-52.0); HEMOGLOBIN 8.5 G/DL (14.2-18.0); LYMPHOCYTES % (AUTO) 7.1 % (20.0-45.0); MEAN CORPUSCULAR VOLUME 85 FL (80-99); MONOCYTES % (AUTO) 6.6 % (1.0-10.0); NEUTROPHILS % (AUTO) 78.4 % (45.0-75.0); PLATELET COUNT 326 K/UL (150-450); RED BLOOD COUNT 3.12 M/UL (4.70-6.10); RED CELL DISTRIBUTION WIDTH 19.8 % (11.6-14.8); WHITE BLOOD COUNT 10.8 K/UL (4.8-10.8)
--- NOTE | 2019-01-29 05:30 | Progress Note ---
DATE: 01/28/2019 CARDIOLOGY PROGRESS NOTE SUBJECTIVE: The patient remains at baseline in noncommunicative state. On ventilator support via trach. OBJECTIVE: VITAL SIGNS: Blood pressure 165/78, pulse 73, and respirations 20. LUNGS: Thick trach secretions. Bilateral rhonchi. HEART: Regular rhythm and rate. Normal S1, S2. ABDOMEN: Soft. G-tube intact. EXTREMITIES: No edema. LABORATORY DATA: White count 9.5 and hemoglobin 7.7. Potassium 2.6, BUN 24, and creatinine 0.6. Albumin 1.1. IMPRESSION: 1. Acinetobacter pneumonia. 2. Respiratory failure. 3. Sepsis with recovered shock. 4. Severe anemia. 5. Hypokalemia. 6. Severe protein-calorie malnutrition. 7. Paroxysmal sinus tachycardia. 8. Hypertensive heart disease. 9. Status post pulmonary tuberculosis. PLAN: 1. Packed red blood cell transfusion. 2. Ventilator support. 3. Antimicrobials per Infectious Disease computer systems consultant. 4. Replace potassium. 5. Recheck potassium and magnesium. 6. Off beta-agonist therapy. 7. Maintain beta-blockade. 8. Monitor volume status and cardiorenal parameters. Jones Arauz M.D. DR: ERICA JOB#: [id number] CC:
[2019-01-29] MEDS: Piperacillin/Tazobactam 3.375 GM in NS 110 ML IVPB SCH (06:00)
[2019-01-29 06:02] LABS: ALANINE AMINOTRANSFERASE 13 U/L (12-78); ALBUMIN 1.1 G/DL (3.4-5.0); ALBUMIN/GLOBULIN RATIO 0.2 (1.0-2.7); ALKALINE PHOSPHATASE 488 U/L (46-116); ANION GAP 8 mmol/L (5-15); ASPARTATE AMINO TRANSFERASE 27 U/L (15-37); BILIRUBIN,TOTAL 0.6 MG/DL (0.2-1.0); BLOOD UREA NITROGEN 30 mg/dL (7-18); CALCIUM 9.1 MG/DL (8.5-10.1); CARBON DIOXIDE 31 MMOL/L (21-32); CHLORIDE 111 MMOL/L (98-107); CREATININE 0.6 MG/DL (0.55-1.30); SODIUM 150 MMOL/L (136-145)
--- NOTE | 2019-01-29 06:19 | NUR ---
left message for MD regarding patient's potassium level. awaiting call back.
--- NOTE | 2019-01-29 06:49 | NUR ---
NURSE NOTES: left message for MD regarding patient's magnesium level. awaiting call back.
--- NOTE | 2019-01-29 07:25 | NUR ---
HAND-OFF: Report given to LALA Marroquin. patient is in stable condition. endorsed to day nurse to follow up with MD regarding magnesium level.
--- NOTE | 2019-01-29 07:36 | NUR ---
NURSE NOTES: RECEIVED PATIENT FROM Tim PUGA RN. PATIENT IS SEEN LYING IN BED, AROUSABLE TO PAIN. 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 TRACH TO VENT. PORTEX 7, AC 12, TV 500, FiO2 40%, PEEP 5. NO SIGNS OF DISTRESS. GT IN PLACE. GTF RUNNING VITAL AF 1.2 AT 65ML/HR. NOTED SANCHEZ CONNECTED TO BAG, PATENT AND DRAINING URINE. SKIN ALTERATION NOTED. ON QUARTET MATTRESS. IV O N L HAND G24, TKO. CALL LIGHT WITHIN REACH. SIDE RAILS UP. BED AT LOWEST POSITION. WILL CONTINUE TO MONITOR.
--- NOTE | 2019-01-29 07:59 | Pulmonology Progress Note ---
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 notes reviewed impression, plan, and exam edited and reviewed in detail care discussed with RN Subjective ROS Limited/Unobtainable: Yes Allergies: Coded Allergies: No Known Allergies (Unverified , 01/27/17) Subjective on vent poor loc labs reviewed cultures noted Objective Last 24 Hour Vital Signs Date Time Temp Pulse Resp B/P (MAP) Pulse Ox O2 Delivery O2 Flow Rate FiO2 01/29/19 07:23 92 21 100 Mechanical Ventilator 40 01/29/19 07:15 94 20 100 Mechanical Ventilator 40 01/29/19 07:15 94 19 40 01/29/19 05:03 87 22 40 01/29/19 04:00 92 01/29/19 04:00 98.1 91 22 158/86 (110) 99 01/29/19 04:00 Mechanical Ventilator 01/29/19 04:00 40 01/29/19 02:52 90 29 40 01/29/19 01:07 82 21 100 Mechanical Ventilator 40 01/29/19 00:52 81 23 100 Mechanical Ventilator 40 01/29/19 00:52 81 24 40 01/29/19 00:00 Mechanical Ventilator 01/29/19 00:00 98.7 76 24 159/85 (109) 98 01/29/19 00:00 83 01/28/19 22:33 84 20 40 01/28/19 21:49 91 19 100 Mechanical Ventilator 40 01/28/19 21:38 86 19 100 Mechanical Ventilator 40 01/28/19 20:39 92 152/85 01/28/19 20:32 98 28 40 01/28/19 20:00 92 01/28/19 20:00 98.8 89 18 152/85 (107) 100 01/28/19 20:00 Mechanical Ventilator 01/28/19 20:00 40 01/28/19 19:57 89 16 100 Mechanical Ventilator 40 01/28/19 19:30 88 15 100 Mechanical Ventilator 40 01/28/19 19:22 89 15 100 Mechanical Ventilator 40 01/28/19 19:21 89 24 40 01/28/19 17:30 83 18 40 01/28/19 16:00 40 01/28/19 16:00 99.1 96 12 132/88 (103) 100 01/28/19 16:00 Mechanical Ventilator 01/28/19 16:00 89 01/28/19 15:28 78 15 40 01/28/19 14:02 71 14 40 01/28/19 13:00 Mechanical Ventilator 40 01/28/19 13:00 Mechanical Ventilator 40 01/28/19 12:00 Mechanical Ventilator 01/28/19 12:00 98.4 88 14 154/70 (98) 100 01/28/19 12:00 40 01/28/19 11:52 80 01/28/19 11:28 87 13 40 01/28/19 09:30 83 28 99 Mechanical Ventilator 40 01/28/19 09:19 79 22 100 Mechanical Ventilator 40 01/28/19 09:10 88 14 40 01/28/19 08:51 95 160/81 01/28/19 08:28 97.9 95 18 160/81 (107) 100 01/28/19 08:00 40 01/28/19 08:00 Mechanical Ventilator Intake and Output 01/28/19 01/29/19 18:59 06:59 Intake Total 1747.5 ml 1865.00 ml Output Total 650 ml 950 ml Balance 1097.5 ml 915.00 ml Free Water 150 ml 300 ml IV Total 567.5 ml 785.00 ml Tube Feeding 780 ml 780 ml Blood Product 250 ml Output Urine Total 650 ml 950 ml # Bowel Movements 7 Objective GENERAL APPEARANCE: The patient is a chronically ill-appearing male, in no apparent distress. unresponsive. NECK: Supple. Trach site is clean, dry, and intact. CARDS: RRR without MRG LUNGS: scattered rhonchi. moderate air entry; no wheeze ABDOMEN: Soft, nontender, and nondistended. GT EXTREMITIES: No clubbing or cyanosis. reduced skin turgor multiple decubitus NEURO: obtunded and same reviewed and edited Laboratory Tests 01/28/19 22:15: Stool Occult Blood [Pending] 01/29/19 05:10: White Blood Count 10.8, Red Blood Count 3.12L, Hemoglobin 8.5L, Hematocrit 26.4L , Mean Corpuscular Volume 85, Mean Corpuscular Hemoglobin 27.1, Mean Corpuscular Hemoglobin Concent 32.0, Red Cell Distribution Width 19.8H, Platelet Count 326, Mean Platelet Volume 4.7L, Neutrophils (%) (Auto) 78.4H, Lymphocytes (%) (Auto) 7.1L, Monocytes (%) (Auto) 6.6, Eosinophils (%) (Auto) 7.5H, Basophils (%) (Auto) 0.3, Sodium Level 150H, Potassium Level 3.0L, Chloride Level 111H, Carbon Dioxide Level 31, Anion Gap 8, Blood Urea Nitrogen 30H, Creatinine 0.6, Estimat Glomerular Filtration Rate , Glucose Level 142H, Calcium Level 9.1, Magnesium Level 1.7L, Total Bilirubin 0.6, Aspartate Amino Transf (AST/SGOT) 27, Alanine Aminotransferase (ALT/SGPT) 13, Alkaline Phosphatase 488H, Total Protein 7.3, Albumin 1.1L, Globulin 6.2, Albumin/ Globulin Ratio 0.2L Current Medications Medications (Trade) Dose Ordered Sig/Iram Route PRN Reason Start Time Stop Time Status Last Admin Dose Admin Acetaminophen (Tylenol) 650 mg Q4H PRN NG fever 01/23/19 10:21 02/22/19 10:20 01/28/19 20:41 Acetaminophen/ Hydrocodone Bitart ([place] 10/325) 1 tab Q4H PRN ORAL For Pain 01/23/19 15:45 01/30/19 15:44 01/28/19 11:11 Albuterol/ Ipratropium (Albuterol/ Ipratropium) 3 ml Q6HRT HHN 01/28/19 19:00 02/02/19 18:59 01/29/19 07:45 Ascorbic Acid (Vitamin C) 500 mg BID GT 01/23/19 11:00 02/22/19 10:59 01/28/19 17:09 Colistimethate Sodium (Colistin *inhalation use only*) 75 mg Q12HR@10,22 INH 01/26/19 12:00 02/02/19 11:59 01/28/19 21:38 Famotidine (Pepcid) 20 mg BID GT 6/21/19 10:21 02/22/19 10:20 01/28/19 17:09 Heparin Sodium (Porcine) (Heparin 5000 units/ml) 5,000 units EVERY 12 HOURS SUBQ 01/23/19 21:00 02/22/19 20:59 01/27/19 20:09 Lansoprazole (Prevacid) 30 mg DAILY GT 01/29/19 09:00 02/28/19 08:59 Levetiracetam (Keppra) 750 mg Q12HR GT 01/23/19 10:21 02/22/19 10:20 01/28/19 20:39 Metoprolol Tartrate (Lopressor) 50 mg Q12HR GT 01/25/19 09:00 02/24/19 08:59 01/28/19 20:39 Piperacillin Sod/ Tazobactam Sod 3.375 gm/Sodium Chloride 110 ml @ 27.5 mls/hr EVERY 8 HOURS IVPB 01/23/19 06:00 01/29/19 23:59 01/29/19 06:00 Potassium Chloride (K-Dur) 40 meq ONCE ORAL 01/29/19 07:00 01/29/19 08:00 01/29/19 07:14 Potassium Chloride (K-Dur) 40 meq ONCE ORAL 01/29/19 11:00 01/29/19 12:00 Sodium Hypochlorite (Dakin's Quarter Strength) 1 applic DAILY TOPIC 01/25/19 09:00 02/23/19 17:59 01/28/19 08:53 Sodium Chloride 1,000 ml @ 75 mls/hr [id number] IV 01/26/19 02:45 02/25/19 02:44 01/28/19 21:50 Nakul iCsse MD Jan 29, 2019 07:59
[2019-01-29 08:00] VITALS: BP 170/70
[2019-01-29] MEDS: Ascorbic Acid 500mg tab GT SCH ×2 (08:32→17:10)
[2019-01-29] MEDS: Metoprolol Tartrate 50mg tab GT SCH ×2 (08:32→21:07)
[2019-01-29] MEDS: levETIRAcetam 500mg/5ml Liquid GT SCH ×2 (08:32→21:07)
[2019-01-29] MEDS: Heparin 5000 units/ml inj SUBQ SCH ×2 (08:35→21:09)
--- NOTE | 2019-01-29 08:38 | General Progress Note ---
Assessment/Plan Problem List: (1) Decubitus ulcer ICD Codes: L89.90 - Pressure ulcer of unspecified site, unspecified stage SNOMED: 721868218 Qualifiers: Qualified Codes: L89.94 - Pressure ulcer of unspecified site, stage 4 (2) Anemia ICD Codes: D64.9 - Anemia, unspecified SNOMED: 271352246 Qualifiers: Qualified Codes: D64.9 - Anemia, unspecified (3) UTI (urinary tract infection), bacterial ICD Codes: N39.0 - Urinary tract infection, site not specified; A49.9 - Bacterial infection, unspecified SNOMED: 610218440 (4) Toxic metabolic encephalopathy ICD Codes: G92 - Toxic encephalopathy SNOMED: 434902687 (5) Aspiration pneumonia ICD Codes: J69.0 - Pneumonitis due to inhalation of food and vomit SNOMED: 928063063 (6) Encephalopathy ICD Codes: G93.40 - Encephalopathy, unspecified SNOMED: 65436874 (7) Sepsis ICD Codes: A41.9 - Sepsis, unspecified organism SNOMED: 05565065 Qualifiers: Qualified Codes: A41.9 - Sepsis, unspecified organism (8) Pneumonia ICD Codes: J18.9 - Pneumonia, unspecified organism SNOMED: 159407068 (9) Status epilepticus ICD Codes: G40.901 - Epilepsy, unspecified, not intractable, with status epilepticus SNOMED: 694144923 Status: stable Assessment/Plan: cont vent support resp rx gt feeds iv abx check stool ob and iron panel GI eval appreciated transfuse wound care sz rx hypotonic ivf replace lytes Subjective ROS Limited/Unobtainable: Yes Constitutional: Reports: malaise, weakness HEENT: Reports: no symptoms Cardiovascular: Reports: no symptoms Respiratory: Reports: cough, shortness of breath Genitourinary: Reports: no symptoms Neurologic/Psychiatric: Reports: pre-existing deficit, seizure Endocrine: Reports: no symptoms Hematologic/Lymphatic: Reports: anemia Allergies: Coded Allergies: No Known Allergies (Unverified , 01/27/17) All Systems: reviewed and negative except above Subjective no events. labs noted. h/h stable. na trending up. poorly responsive at baseline Objective Last 24 Hour Vital Signs Date Time Temp Pulse Resp B/P (MAP) Pulse Ox O2 Delivery O2 Flow Rate FiO2 01/29/19 08:32 92 170/70 01/29/19 08:00 97.5 92 21 170/70 (103) 100 01/29/19 08:00 Mechanical Ventilator 01/29/19 08:00 40 01/29/19 07:23 92 21 100 Mechanical Ventilator 40 01/29/19 07:15 94 20 100 Mechanical Ventilator 40 01/29/19 07:15 94 19 40 01/29/19 05:03 87 22 40 01/29/19 04:00 92 01/29/19 04:00 98.1 91 22 158/86 (110) 99 01/29/19 04:00 Mechanical Ventilator 01/29/19 04:00 40 01/29/19 02:52 90 29 40 01/29/19 01:07 82 21 100 Mechanical Ventilator 40 01/29/19 00:52 81 23 100 Mechanical Ventilator 40 01/29/19 00:52 81 24 40 01/29/19 00:00 Mechanical Ventilator 01/29/19 00:00 98.7 76 24 159/85 (109) 98 01/29/19 00:00 83 01/28/19 22:33 84 20 40 01/28/19 21:49 91 19 100 Mechanical Ventilator 40 01/28/19 21:38 86 19 100 Mechanical Ventilator 40 01/28/19 20:39 92 152/85 01/28/19 20:32 98 28 40 01/28/19 20:00 92 01/28/19 20:00 98.8 89 18 152/85 (107) 100 01/28/19 20:00 Mechanical Ventilator 01/28/19 20:00 40 01/28/19 19:57 89 16 100 Mechanical Ventilator 40 01/28/19 19:30 88 15 100 Mechanical Ventilator 40 01/28/19 19:22 89 15 100 Mechanical Ventilator 40 01/28/19 19:21 89 24 40 01/28/19 17:30 83 18 40 01/28/19 16:00 40 01/28/19 16:00 99.1 96 12 132/88 (103) 100 01/28/19 16:00 Mechanical Ventilator 01/28/19 16:00 89 01/28/19 15:28 78 15 40 01/28/19 14:02 71 14 40 01/28/19 13:00 Mechanical Ventilator 40 01/28/19 13:00 Mechanical Ventilator 40 01/28/19 12:00 Mechanical Ventilator 01/28/19 12:00 98.4 88 14 154/70 (98) 100 01/28/19 12:00 40 01/28/19 11:52 80 01/28/19 11:28 87 13 40 01/28/19 09:30 83 28 99 Mechanical Ventilator 40 01/28/19 09:19 79 22 100 Mechanical Ventilator 40 01/28/19 09:10 88 14 40 01/28/19 08:51 95 160/81 Intake and Output 01/28/19 01/29/19 19:00 07:00 Intake Total 1622.5 ml 1902.50 ml Output Total 650 ml 950 ml Balance 972.5 ml 952.50 ml Free Water 100 ml 300 ml IV Total 492.5 ml 887.50 ml Tube Feeding 780 ml 715 ml Blood Product 250 ml Output Urine Total 650 ml 950 ml # Bowel Movements 7 Laboratory Tests 01/28/19 22:15: Stool Occult Blood [Pending] 01/29/19 05:10: White Blood Count 10.8, Red Blood Count 3.12L, Hemoglobin 8.5L, Hematocrit 26.4L , Mean Corpuscular Volume 85, Mean Corpuscular Hemoglobin 27.1, Mean Corpuscular Hemoglobin Concent 32.0, Red Cell Distribution Width 19.8H, Platelet Count 326, Mean Platelet Volume 4.7L, Neutrophils (%) (Auto) 78.4H, Lymphocytes (%) (Auto) 7.1L, Monocytes (%) (Auto) 6.6, Eosinophils (%) (Auto) 7.5H, Basophils (%) (Auto) 0.3, Sodium Level 150H, Potassium Level 3.0L, Chloride Level 111H, Carbon Dioxide Level 31, Anion Gap 8, Blood Urea Nitrogen 30H, Creatinine 0.6, Estimat Glomerular Filtration Rate , Glucose Level 142H, Calcium Level 9.1, Magnesium Level 1.7L, Total Bilirubin 0.6, Aspartate Amino Transf (AST/SGOT) 27, Alanine Aminotransferase (ALT/SGPT) 13, Alkaline Phosphatase 488H, Total Protein 7.3, Albumin 1.1L, Globulin 6.2, Albumin/ Globulin Ratio 0.2L Height (Feet): 5 Height (Inches): 5.00 Weight (Pounds): 127 Objective General Appearance: WD/WN, confused Neck: supple Cardiovascular: normal peripheral pulses, normal rate, regular rhythm Respiratory/Chest: chest wall non-tender, lungs clear, normal breath sounds, no respiratory distress Abdomen: normal bowel sounds, non tender, soft, no organomegaly Edema: no edema noted Arm (L), no edema noted Arm (R), no edema noted Leg (L), no edema noted Leg (R), no edema noted Pedal (L), no edema noted Pedal (R), no edema noted Generalized Neurologic: disoriented, unresponsive, aphasia Jarrod Vásquez MD Jan 29, 2019 08:38
[2019-01-29] MEDS: Dakin's 0.125% Soln (Quarter Strength) 16oz TOPIC SCH (09:07)
[2019-01-29] MEDS ORDERED: D5W w/KCl 20mEq 1,000 ML IV SCH (09:30)
--- NOTE | 2019-01-29 09:58 | Infectious Diseases Prog Note ---
Assessment/Plan Assessment/Plan A 1. E.coli esbl UTI 2. Acenitobacter pneumonia 3. respiratory failure 4. pulmonary TB s/p rx 5. leucocytosis improving 7. hypertension 8. anemia 9. seizures P 1. Discontinue Zosyn 2. continue inhaled colistin 3 more days 3. will follow up cultures Subjective ROS Limited/Unobtainable: Yes Constitutional: Denies: fever Allergies: Coded Allergies: No Known Allergies (Unverified , 01/27/17) Objective Vital Signs Last 24 Hour Vital Signs Date Time Temp Pulse Resp B/P (MAP) Pulse Ox O2 Delivery O2 Flow Rate FiO2 01/29/19 09:00 91 21 40 01/29/19 08:32 92 170/70 01/29/19 08:00 93 01/29/19 08:00 97.5 92 21 170/70 (103) 100 01/29/19 08:00 Mechanical Ventilator 01/29/19 08:00 40 01/29/19 07:23 92 21 100 Mechanical Ventilator 40 01/29/19 07:15 94 20 100 Mechanical Ventilator 40 01/29/19 07:15 94 19 40 01/29/19 05:03 87 22 40 01/29/19 04:00 92 01/29/19 04:00 98.1 91 22 158/86 (110) 99 01/29/19 04:00 Mechanical Ventilator 01/29/19 04:00 40 01/29/19 02:52 90 29 40 01/29/19 01:07 82 21 100 Mechanical Ventilator 40 01/29/19 00:52 81 23 100 Mechanical Ventilator 40 01/29/19 00:52 81 24 40 01/29/19 00:00 Mechanical Ventilator 01/29/19 00:00 98.7 76 24 159/85 (109) 98 01/29/19 00:00 83 01/28/19 22:33 84 20 40 01/28/19 21:49 91 19 100 Mechanical Ventilator 40 01/28/19 21:38 86 19 100 Mechanical Ventilator 40 01/28/19 20:39 92 152/85 01/28/19 20:32 98 28 40 01/28/19 20:00 92 01/28/19 20:00 98.8 89 18 152/85 (107) 100 01/28/19 20:00 Mechanical Ventilator 01/28/19 20:00 40 01/28/19 19:57 89 16 100 Mechanical Ventilator 40 01/28/19 19:30 88 15 100 Mechanical Ventilator 40 01/28/19 19:22 89 15 100 Mechanical Ventilator 40 01/28/19 19:21 89 24 40 01/28/19 17:30 83 18 40 01/28/19 16:00 40 01/28/19 16:00 99.1 96 12 132/88 (103) 100 01/28/19 16:00 Mechanical Ventilator 01/28/19 16:00 89 01/28/19 15:28 78 15 40 01/28/19 14:02 71 14 40 01/28/19 13:00 Mechanical Ventilator 40 01/28/19 13:00 Mechanical Ventilator 40 01/28/19 12:00 Mechanical Ventilator 01/28/19 12:00 98.4 88 14 154/70 (98) 100 01/28/19 12:00 40 01/28/19 11:52 80 01/28/19 11:28 87 13 40 Height (Feet): 5 Height (Inches): 5.00 Weight (Pounds): 127 HEENT: status post trach Respiratory/Chest: lungs clear, other - on ventilator Cardiovascular: normal rate Abdomen: soft, non tender, other - GT feeding Extremities: no edema Neurologic/Psychiatric: unresponsiveness Laboratory Tests Test 01/28/19 22:15 01/29/19 05:10 Stool Occult Blood Pending White Blood Count 10.8 K/UL (4.8-10.8) Red Blood Count 3.12 M/UL (4.70-6.10) L Hemoglobin 8.5 G/DL (14.2-18.0) L Hematocrit 26.4 % (42.0-52.0) L Mean Corpuscular Volume 85 FL (80-99) Mean Corpuscular Hemoglobin 27.1 PG (27.0-31.0) Mean Corpuscular Hemoglobin Concent 32.0 G/DL (32.0-36.0) Red Cell Distribution Width 19.8 % (11.6-14.8) H Platelet Count 326 K/UL (150-450) Mean Platelet Volume 4.7 FL (6.5-10.1) L Neutrophils (%) (Auto) 78.4 % (45.0-75.0) H Lymphocytes (%) (Auto) 7.1 % (20.0-45.0) L Monocytes (%) (Auto) 6.6 % (1.0-10.0) Eosinophils (%) (Auto) 7.5 % (0.0-3.0) H Basophils (%) (Auto) 0.3 % (0.0-2.0) Sodium Level 150 MMOL/L (136-145) H Potassium Level 3.0 MMOL/L (3.5-5.1) L Chloride Level 111 MMOL/L (98-107) H Carbon Dioxide Level 31 MMOL/L (21-32) Anion Gap 8 mmol/L (5-15) Blood Urea Nitrogen 30 mg/dL (7-18) H Creatinine 0.6 MG/DL (0.55-1.30) Estimat Glomerular Filtration Rate mL/min (>60) Glucose Level 142 MG/DL (74-106) H Calcium Level 9.1 MG/DL (8.5-10.1) Magnesium Level 1.7 MG/DL (1.8-2.4) L Total Bilirubin 0.6 MG/DL (0.2-1.0) Aspartate Amino Transf (AST/SGOT) 27 U/L (15-37) Alanine Aminotransferase (ALT/SGPT) 13 U/L (12-78) Alkaline Phosphatase 488 U/L (46-116) H Total Protein 7.3 G/DL (6.4-8.2) Albumin 1.1 G/DL (3.4-5.0) L Globulin 6.2 g/dL Albumin/Globulin Ratio 0.2 (1.0-2.7) L Current Medications Medications (Trade) Dose Ordered Sig/Iram Route PRN Reason Start Time Stop Time Status Last Admin Dose Admin Acetaminophen (Tylenol) 650 mg Q4H PRN NG fever 01/23/19 10:21 02/22/19 10:20 01/28/19 20:41 Acetaminophen/ Hydrocodone Bitart ([place] ) 1 tab Q4H PRN ORAL For Pain 01/23/19 15:45 01/30/19 15:44 01/28/19 11:11 Albuterol/ Ipratropium (Albuterol/ Ipratropium) 3 ml Q6HRT HHN 01/28/19 19:00 02/02/19 18:59 01/29/19 07:45 Ascorbic Acid (Vitamin C) 500 mg BID GT 01/23/19 11:00 02/22/19 10:59 01/29/19 08:32 Colistimethate Sodium (Colistin *inhalation use only*) 75 mg Q12HR@10,22 INH 01/26/19 12:00 02/02/19 11:59 01/28/19 21:38 Dextrose/ Electrolytes 1,000 ml @ 75 mls/hr [id number] IV 01/29/19 09:30 02/28/19 09:29 01/29/19 09:20 Famotidine (Pepcid) 20 mg BID GT 01/23/19 10:21 02/22/19 10:20 01/29/19 08:32 Heparin Sodium (Porcine) (Heparin 5000 units/ml) 5,000 units EVERY 12 HOURS SUBQ 01/23/19 21:00 02/22/19 20:59 01/29/19 08:35 Lansoprazole (Prevacid) 30 mg DAILY GT 01/29/19 09:00 02/28/19 08:59 01/29/19 08:32 Levetiracetam (Keppra) 750 mg Q12HR GT 01/23/19 10:21 02/22/19 10:20 01/29/19 08:32 Magnesium Sulfate 100 ml @ 100 mls/hr Q1H IVPB 01/29/19 08:45 01/29/19 10:44 01/29/19 09:20 Metoprolol Tartrate (Lopressor) 50 mg Q12HR GT 01/25/19 09:00 02/24/19 08:59 01/29/19 08:32 Piperacillin Sod/ Tazobactam Sod 3.375 gm/Sodium Chloride 110 ml @ 27.5 mls/hr EVERY 8 HOURS IVPB 01/23/19 06:00 01/29/19 23:59 01/29/19 06:00 Potassium Chloride (K-Dur) 40 meq ONCE ORAL 01/29/19 11:00 01/29/19 12:00 Sodium Hypochlorite (Dakin's Quarter Strength) 1 applic DAILY TOPIC 01/25/19 09:00 02/23/19 17:59 01/29/19 09:07 Rahul Shen MD Jan 29, 2019 09:58
[2019-01-29] MEDS: Colistin for inhalation INH SCH ×2 (10:00→21:31)
--- NOTE | 2019-01-29 10:57 | NUR ---
HAND-OFF: Report given to LALA Ward. Dr Vásquez made aware of BP. Awaiting for order.
--- NOTE | 2019-01-29 10:58 | NUR ---
NURSE NOTES: received patient report from millie villarreal. patient is on bed asleep. obtunded. on vent @ prescribed rate. not in acute distress. no arrythmias reported during the night. will follow plan of care.
--- NOTE | 2019-01-29 11:26 | NUR ---
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 . 2) Increased kcal/prot needs R/T underweight status w/ wasting, and wound healing as evidenced by low BMI under guidelines, noted w/ severe generalized wasting, pt w/ multiple advanced wounds, pending eval ENTERAL NUTRITION RECOMMENDATIONS: Vital AF 1.2 @ 65ml/hr x 24 hrs to provide 1560ml, 1872kcal, 117g prot, 1265ml free water - Maintain Vital AF 1.2 @ 65ml/hr as tolerated - Meets 100% est kcal and protein needs. - HOB over 30 degrees/ water flush per MD ADDITIONAL RECOMMENDATIONS: 1) WOUND HEALING: add Vit C 500mg BID, [place] 1pkt BID 2) RECALIBRATE BED SCALE FOR ACCURATE CBW + weekly wt monitoring given underweight status 3) Check lytes daily, replete as needed - (Low K, mg) 4) Continue to maintain calibrated bed scale wts .
--- NOTE | 2019-01-29 11:43 | General Progress Note ---
Assessment/Plan Status: stable Assessment/Plan: Assessment - anemia - Resp failure - cirrhotic change on imaging with negative Hep B/C markers - Elevated Alk phos - GT dependent Recommendations - continue TF - increase free water - check AFP - check CT abd - f/u prior CT findings - Check GGT - follow Na - PPI - daily CBC - no plans for EGD per family directive Subjective Allergies: Coded Allergies: No Known Allergies (Unverified , 01/27/17) Subjective non communicative tolerating TF (+) BM with laxative no melena Objective Last 24 Hour Vital Signs Date Time Temp Pulse Resp B/P (MAP) Pulse Ox O2 Delivery O2 Flow Rate FiO2 01/29/19 11:09 87 26 40 01/29/19 10:00 89 20 100 Mechanical Ventilator 40 01/29/19 10:00 89 20 100 Mechanical Ventilator 40 01/29/19 09:00 91 21 40 01/29/19 08:32 92 170/70 01/29/19 08:00 93 01/29/19 08:00 97.5 92 21 170/70 (103) 100 01/29/19 08:00 Mechanical Ventilator 01/29/19 08:00 40 01/29/19 07:23 92 21 100 Mechanical Ventilator 40 01/29/19 07:15 94 20 100 Mechanical Ventilator 40 01/29/19 07:15 94 19 40 01/29/19 05:03 87 22 40 01/29/19 04:00 92 01/29/19 04:00 98.1 91 22 158/86 (110) 99 01/29/19 04:00 Mechanical Ventilator 01/29/19 04:00 40 01/29/19 02:52 90 29 40 01/29/19 01:07 82 21 100 Mechanical Ventilator 40 01/29/19 00:52 81 23 100 Mechanical Ventilator 40 01/29/19 00:52 81 24 40 01/29/19 00:00 Mechanical Ventilator 01/29/19 00:00 98.7 76 24 159/85 (109) 98 01/29/19 00:00 83 01/28/19 22:33 84 20 40 01/28/19 21:49 91 19 100 Mechanical Ventilator 40 01/28/19 21:38 86 19 100 Mechanical Ventilator 40 01/28/19 20:39 92 152/85 01/28/19 20:32 98 28 40 01/28/19 20:00 92 6/26/19 20:00 98.8 89 18 152/85 (107) 100 01/28/19 20:00 Mechanical Ventilator 01/28/19 20:00 40 01/28/19 19:57 89 16 100 Mechanical Ventilator 40 01/28/19 19:30 88 15 100 Mechanical Ventilator 40 01/28/19 19:22 89 15 100 Mechanical Ventilator 40 01/28/19 19:21 89 24 40 01/28/19 17:30 83 18 40 01/28/19 16:00 40 01/28/19 16:00 99.1 96 12 132/88 (103) 100 01/28/19 16:00 Mechanical Ventilator 01/28/19 16:00 89 01/28/19 15:28 78 15 40 01/28/19 14:02 71 14 40 01/28/19 13:00 Mechanical Ventilator 40 01/28/19 13:00 Mechanical Ventilator 40 01/28/19 12:00 Mechanical Ventilator 01/28/19 12:00 98.4 88 14 154/70 (98) 100 01/28/19 12:00 40 01/28/19 11:52 80 Intake and Output 01/28/19 01/29/19 18:59 06:59 Intake Total 1747.5 ml 1865.00 ml Output Total 650 ml 950 ml Balance 1097.5 ml 915.00 ml Free Water 150 ml 300 ml IV Total 567.5 ml 785.00 ml Tube Feeding 780 ml 780 ml Blood Product 250 ml Output Urine Total 650 ml 950 ml # Bowel Movements 7 Laboratory Tests 01/28/19 22:15: Stool Occult Blood Negative 01/29/19 05:10: White Blood Count 10.8, Red Blood Count 3.12L, Hemoglobin 8.5L, Hematocrit 26.4L , Mean Corpuscular Volume 85, Mean Corpuscular Hemoglobin 27.1, Mean Corpuscular Hemoglobin Concent 32.0, Red Cell Distribution Width 19.8H, Platelet Count 326, Mean Platelet Volume 4.7L, Neutrophils (%) (Auto) 78.4H, Lymphocytes (%) (Auto) 7.1L, Monocytes (%) (Auto) 6.6, Eosinophils (%) (Auto) 7.5H, Basophils (%) (Auto) 0.3, Sodium Level 150H, Potassium Level 3.0L, Chloride Level 111H, Carbon Dioxide Level 31, Anion Gap 8, Blood Urea Nitrogen 30H, Creatinine 0.6, Estimat Glomerular Filtration Rate , Glucose Level 142H, Calcium Level 9.1, Magnesium Level 1.7L, Total Bilirubin 0.6, Aspartate Amino Transf (AST/SGOT) 27, Alanine Aminotransferase (ALT/SGPT) 13, Alkaline Phosphatase 488H, Total Protein 7.3, Albumin 1.1L, Globulin 6.2, Albumin/ Globulin Ratio 0.2L Height (Feet): 5 Height (Inches): 5.00 Weight (Pounds): 127 Objective Frail AA man NCAT (+) Trach coarse BS RR abd soft, (+) GT contracted Oli Amaya MD Jan 29, 2019 11:43
[2019-01-29 12:00] VITALS: BP 158/87
[2019-01-29] MEDS ORDERED: 1/2 NS 1000ml IV ONE (13:32)
[2019-01-29] MEDS ORDERED: NS 275ml ONE (13:32)
--- NOTE | 2019-01-29 14:39 | Surgery Progress Note ---
Surgery Progress Note Subjective Additional Comments no acute events. exam unchanged. Objective Last 24 Hour Vital Signs Date Time Temp Pulse Resp B/P (MAP) Pulse Ox O2 Delivery O2 Flow Rate FiO2 01/29/19 13:50 84 21 100 Mechanical Ventilator 40 01/29/19 13:43 91 31 100 Mechanical Ventilator 40 01/29/19 13:40 84 22 40 01/29/19 13:13 92 158/87 01/29/19 12:00 40 01/29/19 12:00 Mechanical Ventilator 01/29/19 12:00 99.9 92 22 158/87 (110) 100 01/29/19 12:00 89 01/29/19 11:09 87 26 40 01/29/19 10:00 89 20 100 Mechanical Ventilator 40 01/29/19 10:00 89 20 100 Mechanical Ventilator 40 01/29/19 09:00 91 21 40 01/29/19 08:32 92 170/70 01/29/19 08:00 93 01/29/19 08:00 97.5 92 21 170/70 (103) 100 01/29/19 08:00 Mechanical Ventilator 01/29/19 08:00 40 01/29/19 07:23 92 21 100 Mechanical Ventilator 40 01/29/19 07:15 94 20 100 Mechanical Ventilator 40 01/29/19 07:15 94 19 40 01/29/19 05:03 87 22 40 01/29/19 04:00 92 01/29/19 04:00 98.1 91 22 158/86 (110) 99 01/29/19 04:00 Mechanical Ventilator 01/29/19 04:00 40 01/29/19 02:52 90 29 40 01/29/19 01:07 82 21 100 Mechanical Ventilator 40 01/29/19 00:52 81 23 100 Mechanical Ventilator 40 01/29/19 00:52 81 24 40 01/29/19 00:00 Mechanical Ventilator 01/29/19 00:00 98.7 76 24 159/85 (109) 98 01/29/19 00:00 83 01/28/19 22:33 84 20 40 01/28/19 21:49 91 19 100 Mechanical Ventilator 40 01/28/19 21:38 86 19 100 Mechanical Ventilator 40 01/28/19 20:39 92 152/85 01/28/19 20:32 98 28 40 01/28/19 20:00 92 01/28/19 20:00 98.8 89 18 152/85 (107) 100 01/28/19 20:00 Mechanical Ventilator 01/28/19 20:00 40 01/28/19 19:57 89 16 100 Mechanical Ventilator 40 01/28/19 19:30 88 15 100 Mechanical Ventilator 40 01/28/19 19:22 89 15 100 Mechanical Ventilator 40 01/28/19 19:21 89 24 40 01/28/19 17:30 83 18 40 01/28/19 16:00 40 01/28/19 16:00 99.1 96 12 132/88 (103) 100 01/28/19 16:00 Mechanical Ventilator 01/28/19 16:00 89 01/28/19 15:28 78 15 40 I&O Intake and Output 01/28/19 01/29/19 19:00 07:00 Intake Total 1622.5 ml 1967.50 ml Output Total 650 ml 950 ml Balance 972.5 ml 1017.50 ml Free Water 100 ml 300 ml IV Total 492.5 ml 887.50 ml Tube Feeding 780 ml 780 ml Blood Product 250 ml Output Urine Total 650 ml 950 ml # Bowel Movements 7 Dressing: saturated Wound: other Drains: other Cardiovascular: RSR Respiratory: decreased breath sounds Abdomen: soft, present bowel sounds, non-distended Extremities: other Laboratory Tests Test 01/28/19 22:15 01/29/19 05:10 Stool Occult Blood Negative (NEGATIVE) White Blood Count 10.8 K/UL (4.8-10.8) Red Blood Count 3.12 M/UL (4.70-6.10) L Hemoglobin 8.5 G/DL (14.2-18.0) L Hematocrit 26.4 % (42.0-52.0) L Mean Corpuscular Volume 85 FL (80-99) Mean Corpuscular Hemoglobin 27.1 PG (27.0-31.0) Mean Corpuscular Hemoglobin Concent 32.0 G/DL (32.0-36.0) Red Cell Distribution Width 19.8 % (11.6-14.8) H Platelet Count 326 K/UL (150-450) Mean Platelet Volume 4.7 FL (6.5-10.1) L Neutrophils (%) (Auto) 78.4 % (45.0-75.0) H Lymphocytes (%) (Auto) 7.1 % (20.0-45.0) L Monocytes (%) (Auto) 6.6 % (1.0-10.0) Eosinophils (%) (Auto) 7.5 % (0.0-3.0) H Basophils (%) (Auto) 0.3 % (0.0-2.0) Sodium Level 150 MMOL/L (136-145) H Potassium Level 3.0 MMOL/L (3.5-5.1) L Chloride Level 111 MMOL/L (98-107) H Carbon Dioxide Level 31 MMOL/L (21-32) Anion Gap 8 mmol/L (5-15) Blood Urea Nitrogen 30 mg/dL (7-18) H Creatinine 0.6 MG/DL (0.55-1.30) Estimat Glomerular Filtration Rate mL/min (>60) Glucose Level 142 MG/DL (74-106) H Calcium Level 9.1 MG/DL (8.5-10.1) Magnesium Level 1.7 MG/DL (1.8-2.4) L Total Bilirubin 0.6 MG/DL (0.2-1.0) Aspartate Amino Transf (AST/SGOT) 27 U/L (15-37) Alanine Aminotransferase (ALT/SGPT) 13 U/L (12-78) Alkaline Phosphatase 488 U/L (46-116) H Total Protein 7.3 G/DL (6.4-8.2) Albumin 1.1 G/DL (3.4-5.0) L Globulin 6.2 g/dL Albumin/Globulin Ratio 0.2 (1.0-2.7) L Plan Problems: (1) HCAP (healthcare-associated pneumonia) (2) Decubitus ulcer Assessment & Plan: Pt presented on admission with multiple pressure injuries. Resolving pressure injury L occipital. Dry pink epithelial noted. Skin assessed under trach collar and no areas of concerns noted . R and L ears dry . Full thickness pressure injury with undermining thoracic spine . Base of wound 75% granular with 25% fibrinous slough. Mild odor noted.(L)8.5cm x (W)6.5cmx(D) 1cm, undermining clockwise 6-1 by 3cm @12o'clock. Full thickness pressure injury L trochanter. 100% mixed necrosis/slough at base of wound and undermined borders.Non-blanchable erythema with induration noted periwound. Mild odor noted .(L)3.5cm x (W)4.5cm. Resolving DTPI L ischium .Centrally wound is red and fluctuant .Bone is palpable. Black with red tinged indurated borders noted. (L) (L)4.4cm x (W) 3.2cm. Ful thickness pressure injury R Iliac with 10% velazquez slough centrally.90% granular.Edges adherent and flat. (L)3cm x (W)3.2cm x(D)0.2cm. No odor or exudate noted.Darker skin tone without fluctuance noted periwound. Full thickness pressure injury with undermining R trochanter. Base of wound 60^ beefy red with 40% velazquez slough.erythejma noted along borders. Small amt seropurulent exudate that is mildly odorous.(L)5.5cm x (W)6.6cm x (D)1.5cm, undermining clockwise 12-12 by 4.5cm @3o'clock. Full thickness pressure injury R ischium (L)4.2cm x (W)5.5cm x(D)1.6cm, undermining 12-12 by 1.8cm @12o'clock .Base of wound 60% granular ,40% velazquez slough undermined borders.Wound has mild odor with small amt seropurulent exudate.darker skin tone that is indurated periwound. Resolving pressure injury sacrum . Base of wound dry with pink epithelial.with scattered shearing within base of wound. L heel boggy with non-blanchable erythema. DTPI R heel and Lateral aspect .Base of wound is maroon with fluctuance. (L) 4.5cm x (W)7.3cm. Tx.Plan. Cleanse wounds Thoracic and lumbar spine with Dakin's 0.125% segun. Pack with Dakin's moist gauze. Apply Moisture Barrier Paste periwound. Cover each wound with Optifoam drsg.Twice Daily and prn. Cleanse wound L trochanter and L ischium with Dakin's 0.125% segun. Pack with Dakin's moist Gauze.Apply Moisture Barrier paste periwound. Cover with Optifoam drsg. Twice daily and prn. Cleanse wounds R iliac ,R trochanter,R ischium with Dakin's 0.125% segun. Pack with Dakin's moist gauze. Apply Moisture Barrier Paste periwound. Cover with Optifoam drsg Twice daily and prn. Apply Moisture Barrier paste to sacrum. Cover with Optifoam drsg. Change every 3 days and prn. Apply Cavilon Skin Barrier to Both heels. Cover each heel with Optifoam drsg. Change every 7 days and prn. Air Fluidized Mattress. Reposition at least every 2hours or as tolerated. Off-load heels with pillow. Spoke with family. I explained to them that his condition has been deteriorating for some time now. i have seen him in the past and during each admission his wounds are deteriorating despite best efforts at care. He has received adequate nutritional support/supplementation, adequate wound care, and appropriate prevention while in hospital during each admission but wounds continue to deteriorate. they expressed understanding. cont with current care plan (3) Anemia (4) UTI (urinary tract infection), bacterial (5) Toxic metabolic encephalopathy (6) Dementia (7) Dyspnea (8) Respiratory distress (9) Hyperlipidemia (10) Aspiration pneumonia (11) Aspiration pneumonia (12) Vitamin B 12 deficiency (13) Encephalopathy (14) Sepsis Assessment & Plan: Leukocytosis trending down. 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
[2019-01-29] MEDS ORDERED: HYDROcodone/Acetamin 10/325 tab GT PRN (15:00)
[2019-01-29 16:00] VITALS: BP 158/84
--- NOTE | 2019-01-29 19:22 | NUR ---
NURSE NOTES: Received patient from LALA Ward. patient is observed resting in bed, obtunded and arousable to pain. no s/sx of pain noted at this time. Vent to trach settings are as follows: Portex: 7, AC: 12, TV: 500, FiO2: 40%, PEEP: 5. no s/sx of respiratory distress noted at this time. colliery clerk shows patient is NSR; no s/sx of cardiac distress. G-tube site is patent and intact, running feeding at prescribed rate with HOB elevated. IV site is patent and intact, running at prescribed rate. Manzo catheter is patent and intact, draining well. bed in lowest position and locked, padded siderails X3, call light within reach. will continue to monitor.
--- NOTE | 2019-01-29 19:23 | NUR ---
HAND-OFF: Report given to nadia villarreal.
[2019-01-29 20:00] VITALS: BP 153/94
[2019-01-29] MEDS: D5W w/KCl 20mEq 1,000 ML IV SCH (21:10)
[2019-01-30] VITALS: BP 155/85
[2019-01-30] MEDS: Albuterol/Ipratropium 3ml neb HHN SCH ×4 (00:56→19:04)
--- NOTE | 2019-01-30 02:30 | Progress Note ---
DATE: 01/29/2019 SUBJECTIVE: The patient remains poorly responsive. However, this is at baseline. He is on full ventilator support via trach. Secretions are somewhat decreasing. OBJECTIVE: VITAL SIGNS: Blood pressure up to 170/70 early this morning, heart rate 92, and respiratory rate 21. No fevers. LUNGS: Coarse breath sounds. Scattered rhonchi. HEART: Regular rhythm and rate. Normal S1, S2. ABDOMEN: Soft. G-tube site intact. EXTREMITIES: Trace edema. LABORATORY DATA: White count 10.8 and hemoglobin 8.5. Stool occult blood negative. Sodium 150, potassium 3, bicarb 31, BUN 30, and creatinine 0.6. Magnesium 1.7. Albumin 1.1. IMPRESSION: 1. Respiratory failure. 2. Sepsis. 3. Dehydration. 4. Hypernatremia. 5. Hypertensive heart disease with accelerated hypertension. 6. Contraction alkalosis. 7. Respiratory failure. 8. Hypomagnesemia. PLAN: 1. Hypotonic IV fluids. 2. Antihypertensives advanced. 3. No diuresis. 4. Antimicrobials. 5. Ventilator support. 6. IV magnesium. 7. Replace potassium as needed. 8. Nutrition by feeding tube. Jones Arauz M.D. DR: ERICA JOB#: [id number] CC:
[2019-01-30 04:00] VITALS: BP 152/90
[2019-01-30 06:20] LABS: BASOPHILS % (AUTO) 0.2 % (0.0-2.0); EOSINOPHILS % (AUTO) 6.7 % (0.0-3.0); HEMATOCRIT 26.9 % (42.0-52.0); HEMOGLOBIN 8.5 G/DL (14.2-18.0); LYMPHOCYTES % (AUTO) 9.7 % (20.0-45.0); MEAN CORPUSCULAR VOLUME 84 FL (80-99); MONOCYTES % (AUTO) 6.8 % (1.0-10.0); NEUTROPHILS % (AUTO) 76.5 % (45.0-75.0); PLATELET COUNT 360 K/UL (150-450); RED BLOOD COUNT 3.18 M/UL (4.70-6.10); RED CELL DISTRIBUTION WIDTH 19.3 % (11.6-14.8); WHITE BLOOD COUNT 9.9 K/UL (4.8-10.8)
--- NOTE | 2019-01-30 07:06 | NUR ---
NURSE NOTES: Received pt from Chelo Zarco RN in stable condition with no cardiopulmonary distress noted. Pt is obtunded, trache to vent, Portex 7 AC 12 TV 500 FiO2 40% Peep 5. GT noted clamped (pt currently NPO pending abd CT scan). Skin alterations noted. F/C noted draining yellow urine. Pt has a LH 24g IV. Bed is in lowest position with alarm on, side rails up x 3 and padded per seizure precaution, call light within reach. Will continue to monitor pt.
--- NOTE | 2019-01-30 07:07 | NUR ---
HAND-OFF: Report given to LALA Lopez. patient is in stable condition.
[2019-01-30 07:18] LABS: ALANINE AMINOTRANSFERASE 13 U/L (12-78); ALBUMIN 1.2 G/DL (3.4-5.0); ALBUMIN/GLOBULIN RATIO 0.2 (1.0-2.7); ALKALINE PHOSPHATASE 463 U/L (46-116); ANION GAP 6 mmol/L (5-15); ASPARTATE AMINO TRANSFERASE 27 U/L (15-37); BILIRUBIN,TOTAL 0.5 MG/DL (0.2-1.0); BLOOD UREA NITROGEN 25 mg/dL (7-18); CARBON DIOXIDE 33 MMOL/L (21-32); CHLORIDE 105 MMOL/L (98-107); CREATININE 0.5 MG/DL (0.55-1.30); POTASSIUM 3.5 MMOL/L (3.5-5.1); SODIUM 144 MMOL/L (136-145)
[2019-01-30] MEDS: D5W w/KCl 20mEq 1,000 ML IV SCH ×2 (07:28→16:55)
[2019-01-30 08:00] VITALS: BP 160/97
[2019-01-30] MEDS: Heparin 5000 units/ml inj SUBQ SCH ×3 (08:07→20:24)
[2019-01-30] MEDS: levETIRAcetam 500mg/5ml Liquid GT SCH ×2 (08:07→20:22)
[2019-01-30] MEDS: Ascorbic Acid 500mg tab GT SCH (08:07)
[2019-01-30] MEDS: Metoprolol Tartrate 50mg tab GT SCH ×2 (08:08→20:23)
--- NOTE | 2019-01-30 08:25 | NUR ---
NURSE NOTES: Left a message for Dr. Vásquez to notify him heparin has been held until parameters are obtained, also inquired about venous duplex and SCD order if indicated. Awaiting response.
--- NOTE | 2019-01-30 09:06 | NUR ---
NURSE NOTES: Received call back from Dr. Vásquez with parameters for heparin and okay to give heparin today.
[2019-01-30] MEDS ORDERED: NS 275ml ONE (09:16)
[2019-01-30] MEDS ORDERED: Tubing IV Secondary IV ONE (09:16)
[2019-01-30] MEDS ORDERED: Tubing Blood Filter IV ONE (09:16)
[2019-01-30] MEDS ORDERED: 1/2 NS 1000ml IV ONE (09:16)
[2019-01-30] MEDS: Dakin's 0.125% Soln (Quarter Strength) 16oz TOPIC SCH (09:19)
--- NOTE | 2019-01-30 09:31 | NUR ---
NURSE NOTES: 400cc of barium sulfate administered via GT for pending abd CT scan.
[2019-01-30] MEDS: Colistin for inhalation INH SCH ×2 (09:54→23:39)
--- NOTE | 2019-01-30 10:56 | Infectious Diseases Prog Note ---
Assessment/Plan Assessment/Plan antibiotics : inhaled colistin A 1. e.coli esbl UTI 2. acenitobacter pneumonia 3. respiratory failure 4. pulmonary TB s/p rx 5. leucocytosis resolved 7. hypertension 8. anemia 9. seizures P 1. continue inhaled colistin 2 more days 2. will follow up cultures Subjective ROS Limited/Unobtainable: Yes Allergies: Coded Allergies: No Known Allergies (Unverified , 01/27/17) Objective Vital Signs Last 24 Hour Vital Signs Date Time Temp Pulse Resp B/P (MAP) Pulse Ox O2 Delivery O2 Flow Rate FiO2 01/30/19 09:55 73 25 100 Mechanical Ventilator 40 01/30/19 09:30 71 23 40 01/30/19 08:13 98 160/97 01/30/19 08:08 98 160/97 01/30/19 08:00 40 01/30/19 08:00 96 01/30/19 08:00 97.7 98 26 160/97 (118) 100 01/30/19 08:00 Mechanical Ventilator 01/30/19 07:23 91 25 100 Mechanical Ventilator 40 01/30/19 07:13 92 23 100 Mechanical Ventilator 40 01/30/19 07:12 91 25 40 01/30/19 04:54 92 30 40 01/30/19 04:00 Mechanical Ventilator 01/30/19 04:00 97.5 91 18 152/90 (110) 100 01/30/19 04:00 40 01/30/19 03:37 95 01/30/19 02:46 91 28 40 01/30/19 01:07 86 32 100 Mechanical Ventilator 40 01/30/19 00:55 83 27 100 Mechanical Ventilator 40 01/30/19 00:54 83 26 40 01/30/19 00:00 82 01/30/19 00:00 Mechanical Ventilator 01/30/19 00:00 97.9 82 18 155/85 (108) 100 01/29/19 23:13 82 31 40 01/29/19 21:40 76 19 100 Mechanical Ventilator 40 01/29/19 21:28 80 29 100 Mechanical Ventilator 40 01/29/19 21:26 83 33 40 01/29/19 21:07 96 153/94 01/29/19 20:00 95 01/29/19 20:00 Mechanical Ventilator 01/29/19 20:00 40 01/29/19 20:00 97.5 96 22 153/94 (113) 100 01/29/19 19:54 94 30 100 Mechanical Ventilator 40 01/29/19 19:38 95 30 100 Mechanical Ventilator 40 01/29/19 19:34 95 30 40 01/29/19 17:24 89 21 40 01/29/19 16:00 91 01/29/19 16:00 40 01/29/19 16:00 97.9 100 21 158/84 (108) 100 01/29/19 16:00 Mechanical Ventilator 01/29/19 14:30 87 24 40 01/29/19 13:50 84 21 100 Mechanical Ventilator 40 01/29/19 13:43 91 31 100 Mechanical Ventilator 40 01/29/19 13:40 84 22 40 01/29/19 13:13 92 158/87 01/29/19 12:00 40 01/29/19 12:00 Mechanical Ventilator 01/29/19 12:00 99.9 92 22 158/87 (110) 100 01/29/19 12:00 89 01/29/19 11:09 87 26 40 Height (Feet): 5 Height (Inches): 5.00 Weight (Pounds): 127 HEENT: status post trach Respiratory/Chest: lungs clear Cardiovascular: normal rate, regular rhythm, no gallop/murmur Abdomen: soft, non tender, other - GT Extremities: no edema Laboratory Tests Test 01/30/19 04:45 White Blood Count 9.9 K/UL (4.8-10.8) Red Blood Count 3.18 M/UL (4.70-6.10) L Hemoglobin 8.5 G/DL (14.2-18.0) L Hematocrit 26.9 % (42.0-52.0) L Mean Corpuscular Volume 84 FL (80-99) Mean Corpuscular Hemoglobin 26.8 PG (27.0-31.0) L Mean Corpuscular Hemoglobin Concent 31.7 G/DL (32.0-36.0) L Red Cell Distribution Width 19.3 % (11.6-14.8) H Platelet Count 360 K/UL (150-450) Mean Platelet Volume 4.7 FL (6.5-10.1) L Neutrophils (%) (Auto) 76.5 % (45.0-75.0) H Lymphocytes (%) (Auto) 9.7 % (20.0-45.0) L Monocytes (%) (Auto) 6.8 % (1.0-10.0) Eosinophils (%) (Auto) 6.7 % (0.0-3.0) H Basophils (%) (Auto) 0.2 % (0.0-2.0) Sodium Level 144 MMOL/L (136-145) Potassium Level 3.5 MMOL/L (3.5-5.1) Chloride Level 105 MMOL/L (98-107) Carbon Dioxide Level 33 MMOL/L (21-32) H Anion Gap 6 mmol/L (5-15) Blood Urea Nitrogen 25 mg/dL (7-18) H Creatinine 0.5 MG/DL (0.55-1.30) L Estimat Glomerular Filtration Rate mL/min (>60) Glucose Level 100 MG/DL (74-106) Calcium Level 9.0 MG/DL (8.5-10.1) Total Bilirubin 0.5 MG/DL (0.2-1.0) Gamma Glutamyl Transpeptidase 211 U/L (5-85) H Aspartate Amino Transf (AST/SGOT) 27 U/L (15-37) Alanine Aminotransferase (ALT/SGPT) 13 U/L (12-78) Alkaline Phosphatase 463 U/L (46-116) H Total Protein 7.4 G/DL (6.4-8.2) Albumin 1.2 G/DL (3.4-5.0) L Globulin 6.2 g/dL Albumin/Globulin Ratio 0.2 (1.0-2.7) L Alpha Fetoprotein Pending Current Medications Medications (Trade) Dose Ordered Sig/Iram Route PRN Reason Start Time Stop Time Status Last Admin Dose Admin Acetaminophen (Tylenol) 650 mg Q4H PRN NG fever 01/23/19 10:21 02/22/19 10:20 01/28/19 20:41 Acetaminophen/ Hydrocodone Bitart ([place] ) 1 tab Q4H PRN GT For Pain 01/29/19 15:00 02/04/19 14:59 Albuterol/ Ipratropium (Albuterol/ Ipratropium) 3 ml Q6HRT HHN 01/28/19 19:00 02/02/19 18:59 01/30/19 07:13 Amlodipine Besylate (Norvasc) 5 mg DAILY ORAL 01/30/19 09:00 03/01/19 08:59 01/30/19 08:13 Ascorbic Acid (Vitamin C) 500 mg BID GT 01/23/19 11:00 02/22/19 10:59 01/30/19 08:07 Barium Sulfate (Readi-Cat 2) 450 ml NOW PRN ORAL Radiology Procedure 01/29/19 11:45 01/31/19 11:43 Colistimethate Sodium (Colistin *inhalation use only*) 75 mg Q12HR@10,22 INH 01/26/19 12:00 02/02/19 11:59 01/30/19 09:54 Dextrose/ Electrolytes 1,000 ml @ 100 mls/hr Q10H IV 01/29/19 20:30 02/28/19 20:29 01/30/19 07:28 Famotidine (Pepcid) 20 mg BID GT 01/23/19 10:21 02/22/19 10:20 01/30/19 08:07 Heparin Sodium (Porcine) (Heparin 5000 units/ml) 5,000 units EVERY 12 HOURS SUBQ 01/30/19 09:00 03/01/19 08:59 01/30/19 09:19 Lansoprazole (Prevacid) 30 mg DAILY GT 01/29/19 09:00 02/28/19 08:59 01/30/19 08:07 Levetiracetam (Keppra) 750 mg Q12HR GT 01/23/19 10:21 02/22/19 10:20 01/30/19 08:07 Metoprolol Tartrate (Lopressor) 50 mg Q12HR GT 01/25/19 09:00 02/24/19 08:59 01/30/19 08:08 Sodium Hypochlorite (Dakin's Quarter Strength) 1 applic DAILY TOPIC 01/25/19 09:00 02/23/19 17:59 01/30/19 09:19 Sergio Urban MD Jan 30, 2019 10:56
--- NOTE | 2019-01-30 11:21 | NUR ---
CASE MANAGEMENT:REVIEW 01/30/19 SI: AC/CHR RENAL FAILURE. POSSIBLE SEPSIS PULMONARY TUBERCULOSIS. TRACH 97.7 98 26 160/97 100% ON VENT SUPPORT @ 40% FIO2 H/H-8.5/26.9 AST+211 IS: COLISTIN INH Q12 IVF@100/HR NORVASC PO QD HEPARIN SQ Q12 DUONEB HHN Q6HRS RTC LOPRESSOR GT Q12 KEPPRA GT Q12 : STEP DOWN UNIT DCP: FROM [facility]
--- NOTE | 2019-01-30 11:41 | Surgery Progress Note ---
Surgery Progress Note Subjective Additional Comments no acute events. h/h stable labs improving exam stable prognosis guarded overall Objective Last 24 Hour Vital Signs Date Time Temp Pulse Resp B/P (MAP) Pulse Ox O2 Delivery O2 Flow Rate FiO2 01/30/19 11:18 82 23 40 01/30/19 10:05 81 19 100 Mechanical Ventilator 40 01/30/19 09:55 73 25 100 Mechanical Ventilator 40 01/30/19 09:30 71 23 40 01/30/19 08:13 98 160/97 01/30/19 08:08 98 160/97 01/30/19 08:00 40 01/30/19 08:00 96 01/30/19 08:00 97.7 98 26 160/97 (118) 100 01/30/19 08:00 Mechanical Ventilator 01/30/19 07:23 91 25 100 Mechanical Ventilator 40 01/30/19 07:13 92 23 100 Mechanical Ventilator 40 01/30/19 07:12 91 25 40 01/30/19 04:54 92 30 40 01/30/19 04:00 Mechanical Ventilator 01/30/19 04:00 97.5 91 18 152/90 (110) 100 01/30/19 04:00 40 01/30/19 03:37 95 01/30/19 02:46 91 28 40 01/30/19 01:07 86 32 100 Mechanical Ventilator 40 01/30/19 00:55 83 27 100 Mechanical Ventilator 40 01/30/19 00:54 83 26 40 01/30/19 00:00 82 01/30/19 00:00 Mechanical Ventilator 01/30/19 00:00 97.9 82 18 155/85 (108) 100 01/29/19 23:13 82 31 40 01/29/19 21:40 76 19 100 Mechanical Ventilator 40 01/29/19 21:28 80 29 100 Mechanical Ventilator 40 01/29/19 21:26 83 33 40 01/29/19 21:07 96 153/94 01/29/19 20:00 95 01/29/19 20:00 Mechanical Ventilator 01/29/19 20:00 40 01/29/19 20:00 97.5 96 22 153/94 (113) 100 01/29/19 19:54 94 30 100 Mechanical Ventilator 40 01/29/19 19:38 95 30 100 Mechanical Ventilator 40 01/29/19 19:34 95 30 40 01/29/19 17:24 89 21 40 01/29/19 16:00 91 01/29/19 16:00 40 01/29/19 16:00 97.9 100 21 158/84 (108) 100 01/29/19 16:00 Mechanical Ventilator 01/29/19 14:30 87 24 40 01/29/19 13:50 84 21 100 Mechanical Ventilator 40 01/29/19 13:43 91 31 100 Mechanical Ventilator 40 01/29/19 13:40 84 22 40 01/29/19 13:13 92 158/87 01/29/19 12:00 40 01/29/19 12:00 Mechanical Ventilator 01/29/19 12:00 99.9 92 22 158/87 (110) 100 01/29/19 12:00 89 I&O Intake and Output 01/29/19 01/30/19 18:59 06:59 Intake Total 1857.5 ml 1295 ml Output Total 950 ml 800 ml Balance 907.5 ml 495 ml Free Water 170 ml 160 ml IV Total 907.5 ml 875 ml Tube Feeding 780 ml 260 ml Output Urine Total 950 ml 800 ml # Voids 1 # Bowel Movements 2 Dressing: saturated Wound: other Drains: other Cardiovascular: RSR Respiratory: decreased breath sounds Abdomen: soft, present bowel sounds, other, non-distended Extremities: other Laboratory Tests Test 01/30/19 04:45 White Blood Count 9.9 K/UL (4.8-10.8) Red Blood Count 3.18 M/UL (4.70-6.10) L Hemoglobin 8.5 G/DL (14.2-18.0) L Hematocrit 26.9 % (42.0-52.0) L Mean Corpuscular Volume 84 FL (80-99) Mean Corpuscular Hemoglobin 26.8 PG (27.0-31.0) L Mean Corpuscular Hemoglobin Concent 31.7 G/DL (32.0-36.0) L Red Cell Distribution Width 19.3 % (11.6-14.8) H Platelet Count 360 K/UL (150-450) Mean Platelet Volume 4.7 FL (6.5-10.1) L Neutrophils (%) (Auto) 76.5 % (45.0-75.0) H Lymphocytes (%) (Auto) 9.7 % (20.0-45.0) L Monocytes (%) (Auto) 6.8 % (1.0-10.0) Eosinophils (%) (Auto) 6.7 % (0.0-3.0) H Basophils (%) (Auto) 0.2 % (0.0-2.0) Sodium Level 144 MMOL/L (136-145) Potassium Level 3.5 MMOL/L (3.5-5.1) Chloride Level 105 MMOL/L (98-107) Carbon Dioxide Level 33 MMOL/L (21-32) H Anion Gap 6 mmol/L (5-15) Blood Urea Nitrogen 25 mg/dL (7-18) H Creatinine 0.5 MG/DL (0.55-1.30) L Estimat Glomerular Filtration Rate mL/min (>60) Glucose Level 100 MG/DL (74-106) Calcium Level 9.0 MG/DL (8.5-10.1) Total Bilirubin 0.5 MG/DL (0.2-1.0) Gamma Glutamyl Transpeptidase 211 U/L (5-85) H Aspartate Amino Transf (AST/SGOT) 27 U/L (15-37) Alanine Aminotransferase (ALT/SGPT) 13 U/L (12-78) Alkaline Phosphatase 463 U/L (46-116) H Total Protein 7.4 G/DL (6.4-8.2) Albumin 1.2 G/DL (3.4-5.0) L Globulin 6.2 g/dL Albumin/Globulin Ratio 0.2 (1.0-2.7) L Alpha Fetoprotein Pending Plan Problems: (1) HCAP (healthcare-associated pneumonia) (2) Decubitus ulcer Assessment & Plan: Pt presented on admission with multiple pressure injuries. Resolving pressure injury L occipital. Dry pink epithelial noted. Skin assessed under trach collar and no areas of concerns noted . R and L ears dry . Full thickness pressure injury with undermining thoracic spine . Base of wound 75% granular with 25% fibrinous slough. Mild odor noted.(L)8.5cm x (W)6.5cmx(D) 1cm, undermining clockwise 6-1 by 3cm @12o'clock. Full thickness pressure injury L trochanter. 100% mixed necrosis/slough at base of wound and undermined borders.Non-blanchable erythema with induration noted periwound. Mild odor noted .(L)3.5cm x (W)4.5cm. Resolving DTPI L ischium .Centrally wound is red and fluctuant .Bone is palpable. Black with red tinged indurated borders noted. (L) (L)4.4cm x (W) 3.2cm. Ful thickness pressure injury R Iliac with 10% vealzquez slough centrally.90% granular.Edges adherent and flat. (L)3cm x (W)3.2cm x(D)0.2cm. No odor or exudate noted.Darker skin tone without fluctuance noted periwound. Full thickness pressure injury with undermining R trochanter. Base of wound 60^ beefy red with 40% velazquez slough.erythejma noted along borders. Small amt seropurulent exudate that is mildly odorous.(L)5.5cm x (W)6.6cm x (D)1.5cm, undermining clockwise 12-12 by 4.5cm @3o'clock. Full thickness pressure injury R ischium (L)4.2cm x (W)5.5cm x(D)1.6cm, undermining 12-12 by 1.8cm @12o'clock .Base of wound 60% granular ,40% velazquez slough undermined borders.Wound has mild odor with small amt seropurulent exudate.darker skin tone that is indurated periwound. Resolving pressure injury sacrum . Base of wound dry with pink epithelial.with scattered shearing within base of wound. L heel boggy with non-blanchable erythema. DTPI R heel and Lateral aspect .Base of wound is maroon with fluctuance. (L) 4.5cm x (W)7.3cm. Tx.Plan. Cleanse wounds Thoracic and lumbar spine with Dakin's 0.125% segun. Pack with Dakin's moist gauze. Apply Moisture Barrier Paste periwound. Cover each wound with Optifoam drsg.Twice Daily and prn. Cleanse wound L trochanter and L ischium with Dakin's 0.125% segun. Pack with Dakin's moist Gauze.Apply Moisture Barrier paste periwound. Cover with Optifoam drsg. Twice daily and prn. Cleanse wounds R iliac ,R trochanter,R ischium with Dakin's 0.125% segun. Pack with Dakin's moist gauze. Apply Moisture Barrier Paste periwound. Cover with Optifoam drsg Twice daily and prn. Apply Moisture Barrier paste to sacrum. Cover with Optifoam drsg. Change every 3 days and prn. Apply Cavilon Skin Barrier to Both heels. Cover each heel with Optifoam drsg. Change every 7 days and prn. Air Fluidized Mattress. Reposition at least every 2hours or as tolerated. Off-load heels with pillow. Spoke with family. I explained to them that his condition has been deteriorating for some time now. i have seen him in the past and during each admission his wounds are deteriorating despite best efforts at care. He has received adequate nutritional support/supplementation, adequate wound care, and appropriate prevention while in hospital during each admission but wounds continue to deteriorate. they expressed understanding. cont with current care plan (3) Anemia (4) UTI (urinary tract infection), bacterial (5) Toxic metabolic encephalopathy (6) Dementia (7) Dyspnea (8) Respiratory distress (9) Hyperlipidemia (10) Aspiration pneumonia (11) Aspiration pneumonia (12) Vitamin B 12 deficiency Assessment & Plan: DAILY ESTIMATED NEEDS: Needs based on Underweight, TF [employer]LECT[employer] REPA[employer]ER, Cachetic, Critical care, wounds/49.5kg 30-40 kcals/kg 8504-0886 total kcals 1.5-2 g protein/kg 74-99 g total protein 25-30 mL/kg 9749-0575 total fluid mLs NUTRITION DIAGNOSIS: 1) Swallowing difficulty r/t dysphagia, respiratory status as evidenced by pt is PEG dep, trach/vent dep. . 2) Increased kcal/prot needs R/T underweight status w/ wasting, and wound healing as evidenced by low BMI under guidelines, noted w/ severe generalized wasting, pt w/ multiple advanced wounds, pending eval ENTERAL NUTRITION RECOMMENDATIONS: Vital AF 1.2 @ 65ml/hr x 24 hrs to provide 1560ml, 1872kcal, 117g prot, 1265ml free water - Maintain Vital AF 1.2 @ 65ml/hr as tolerated - Meets 100% est kcal and protein needs. - HOB over 30 degrees/ water flush per MD ADDITIONAL RECOMMENDATIONS: 1) WOUND HEALING: add Vit C 500mg BID, Edgard 1pkt BID 2) RECALIBRATE BED SCALE FOR ACCURATE CBW + weekly wt monitoring given underweight status 3) Check lytes daily, replete as needed - (Low K, mg) 4) Continue to maintain calibrated bed scale wts (13) Encephalopathy (14) Sepsis Assessment & Plan: Leukocytosis improved cont with IV fluids Cont with IV abx as per ID CXR noted labs noted Thank you for this consultation we will follow with recommendations (15) Pneumonia (16) Status epilepticus (17) HTN (hypertension) (18) Encephalopathy acute (19) BPH (benign prostatic hyperplasia) (20) Abnormal LFTs (21) Probable sepsis (2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 (23) Zev Mchugh Jan 30, 2019 11:41
--- NOTE | 2019-01-30 11:45 | NUR ---
NURSE NOTES: Pt brought down to CT Scan via hospital bed and O2 tank being bagged by RT, accompanied with myself, RT and CT personnel. 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 No signs of cardiopulmonary distress noted.
[2019-01-30 12:00] VITALS: BP 152/83
--- NOTE | 2019-01-30 12:00 | NUR ---
NURSE NOTES: Pt brought back up to [facility] in stable condition with no cardiopulmonary distress noted. VS noted and charted.
--- NOTE | 2019-01-30 12:26 | NUR ---
NURSE NOTES: Family (2 daughters) at bedside, followed up with them regarding family member who they previously claimed tested positive for TB. I inquired about who the family member is and they state it's the patient's . Per daughter, the tested positive for quantiferon gold test and just had CXR yesterday with results still pending. One of the daughters in the room is unaware of her status and never got tested, I instructed her to get tested B[facility] and provided both family members with N95 masks for now. Left a message for Erica Molina from infection control dept to notify her of details.
--- NOTE | 2019-01-30 12:33 | Diagnostic Imaging Report ---
Indication: Abdominal pain, abnormal LFTs Technique: Noncontrast CT of the abdomen utilizing automated exposure control. Oral contrast was administered. Axial, sagittal and coronal reformats presented. CT dose: Total DLP 724.83 mGycm; CTDI vol 13.45 mGy Comparison: 05/09/2018 Findings: Please note that evaluation of the abdominal viscera and vascular structures is limited without the use of intravenous and oral contrast. Within these limitations the following observations are made: There are small bilateral pleural effusions. There is dense airspace consolidation with air bronchograms in the right lower lobe concerning for pneumonia. Mild opacities noted in the dependent portions of the left lower lobe which may related to compressive atelectasis. No evidence of pneumothorax. Heart is enlarged. There is trace pericardial effusion. There are coronary arterial calcifications. Minimal hepatic surface nodularity noted, similar to the prior exam. Fluid within the fissure ligamentum teres is again noted, similar to the prior exam. Note that the previously described enhancing focus in the left hepatic lobe is not seen, possibly related to lack of contrast on today's exam. Patient again noted to be status post cholecystectomy. Some small foci of pneumobilia noted, seen previously but decreased on today's exam. No biliary ductal dilatation. Spleen is within the upper limits for normal size. Adrenal glands and noncontrast evaluation of the pancreas unremarkable. There is nonspecific bilateral perinephric stranding. No evidence of hydronephrosis or urinary tract stone bilaterally. Some low-attenuation lesions noted in the kidneys most likely representing cysts. There is no free intraperitoneal air. There is no evidence of small bowel obstruction. Contrast traverses to the left colon. A gastrostomy tube is in place. The appendix is normal. There are extensive atherosclerotic gastric calcifications in a normal caliber abdominal aorta. There are multilevel degenerative changes of the spine with severe disc space narrowing at L4-L5. This was seen previously. No acute osseous abnormality. IMPRESSION: Limited exam without intravenous and oral contrast. Within these limitations: * Minimal surface nodularity of the liver suggesting cirrhosis. This was noted previously. * Previously described enhancing focus in the left hepatic lobe not seen on today's exam as no IV contrast was administered. No definite underlying mass noted in the region of the previously described abnormality however evaluation is limited without contrast. * Small amount of fluid again noted in the fissure for the ligamentum teres, similar to prior exam. * Small bilateral pleural effusions. * Dense consolidation in the right lower lobe with air bronchograms suggesting pneumonia. * Extensive coronary arterial calcifications * Evidence of prior cholecystectomy. Trace pneumobilia is noted, decreased compared to the prior exam. No definite biliary ductal dilatation. * Nonspecific bilateral perinephric stranding without evidence of hydronephrosis. Consider correlation with urinalysis. The CT scanner at [facility] is accredited by the [employer] and the scans are performed using protocols designed to limit radiation exposure to as low as reasonably achievable to attain images of sufficient resolution adequate for diagnostic evaluation.
[2019-01-30 16:00] VITALS: BP 137/77
--- NOTE | 2019-01-30 16:12 | General Progress Note ---
Assessment/Plan Status: stable Assessment/Plan: Assessment - anemia - Resp failure - cirrhotic change on imaging with negative Hep B/C markers - Elevated Alk phos - GT dependent Recommendations - continue TF - increase free water - check AFP - follow Na - PPI - daily CBC - no plans for EGD per family directive Subjective Allergies: Coded Allergies: No Known Allergies (Unverified , 01/27/17) Subjective non communicative tolerating TF H&H stable had CT scan today Objective Last 24 Hour Vital Signs Date Time Temp Pulse Resp B/P (MAP) Pulse Ox O2 Delivery O2 Flow Rate FiO2 01/30/19 16:00 40 01/30/19 15:22 85 23 40 01/30/19 15:00 Mechanical Ventilator 01/30/19 13:18 83 24 100 Mechanical Ventilator 40 01/30/19 13:07 81 25 100 Mechanical Ventilator 40 01/30/19 13:06 81 25 40 01/30/19 12:00 97.9 79 26 152/83 (106) 100 01/30/19 12:00 82 01/30/19 12:00 Mechanical Ventilator 01/30/19 12:00 40 01/30/19 11:18 82 23 40 01/30/19 10:05 81 19 100 Mechanical Ventilator 40 01/30/19 09:55 73 25 100 Mechanical Ventilator 40 01/30/19 09:30 71 23 40 01/30/19 08:13 98 160/97 01/30/19 08:08 98 160/97 01/30/19 08:00 40 01/30/19 08:00 96 01/30/19 08:00 97.7 98 26 160/97 (118) 100 01/30/19 08:00 Mechanical Ventilator 01/30/19 07:23 91 25 100 Mechanical Ventilator 40 01/30/19 07:13 92 23 100 Mechanical Ventilator 40 01/30/19 07:12 91 25 40 01/30/19 04:54 92 30 40 01/30/19 04:00 Mechanical Ventilator 01/30/19 04:00 97.5 91 18 152/90 (110) 100 01/30/19 04:00 40 01/30/19 03:37 95 01/30/19 02:46 91 28 40 01/30/19 01:07 86 32 100 Mechanical Ventilator 40 01/30/19 00:55 83 27 100 Mechanical Ventilator 40 01/30/19 00:54 83 26 40 01/30/19 00:00 82 01/30/19 00:00 Mechanical Ventilator 01/30/19 00:00 97.9 82 18 155/85 (108) 100 01/29/19 23:13 82 31 40 01/29/19 21:40 76 19 100 Mechanical Ventilator 40 01/29/19 21:28 80 29 100 Mechanical Ventilator 40 01/29/19 21:26 83 33 40 01/29/19 21:07 96 153/94 01/29/19 20:00 95 01/29/19 20:00 Mechanical Ventilator 01/29/19 20:00 40 01/29/19 20:00 97.5 96 22 153/94 (113) 100 01/29/19 19:54 94 30 100 Mechanical Ventilator 40 01/29/19 19:38 95 30 100 Mechanical Ventilator 40 01/29/19 19:34 95 30 40 01/29/19 17:24 89 21 40 Intake and Output 01/29/19 01/30/19 18:59 06:59 Intake Total 1857.5 ml 1295 ml Output Total 950 ml 800 ml Balance 907.5 ml 495 ml Free Water 170 ml 160 ml IV Total 907.5 ml 875 ml Tube Feeding 780 ml 260 ml Output Urine Total 950 ml 800 ml # Voids 1 # Bowel Movements 2 Laboratory Tests 01/30/19 04:45: White Blood Count 9.9, Red Blood Count 3.18L, Hemoglobin 8.5L, Hematocrit 26.9L , Mean Corpuscular Volume 84, Mean Corpuscular Hemoglobin 26.8L, Mean Corpuscular Hemoglobin Concent 31.7L, Red Cell Distribution Width 19.3H, Platelet Count 360, Mean Platelet Volume 4.7L, Neutrophils (%) (Auto) 76.5H, Lymphocytes (%) (Auto) 9.7L, Monocytes (%) (Auto) 6.8, Eosinophils (%) (Auto) 6.7H, Basophils (%) (Auto) 0.2, Sodium Level 144, Potassium Level 3.5, Chloride Level 105, Carbon Dioxide Level 33H, Anion Gap 6, Blood Urea Nitrogen 25H, Creatinine 0.5L, Estimat Glomerular Filtration Rate , Glucose Level 100, Calcium Level 9.0, Total Bilirubin 0.5, Gamma Glutamyl Transpeptidase 211H, Aspartate Amino Transf (AST/SGOT) 27, Alanine Aminotransferase (ALT/SGPT) 13, Alkaline Phosphatase 463H, Total Protein 7.4, Albumin 1.2L, Globulin 6.2, Albumin/Globulin Ratio 0.2L, Alpha Fetoprotein [Pending] Height (Feet): 5 Height (Inches): 5.00 Weight (Pounds): 127 Objective Frail AA man NCAT (+) Trach coarse BS RR abd soft, (+) GT contracted Oli Amaya MD Jan 30, 2019 16:12
--- NOTE | 2019-01-30 16:48 | NUR ---
NURSE NOTES: Spoke with [facility] and notified her that Barium sulfate contrast given today at 0930 was not scanned- she said it was okay and to go ahead and document on emar.
--- NOTE | 2019-01-30 17:01 | General Progress Note ---
Assessment/Plan Problem List: (1) Decubitus ulcer ICD Codes: L89.90 - Pressure ulcer of unspecified site, unspecified stage SNOMED: 418095038 Qualifiers: Qualified Codes: L89.94 - Pressure ulcer of unspecified site, stage 4 (2) Anemia ICD Codes: D64.9 - Anemia, unspecified SNOMED: 078248526 Qualifiers: Qualified Codes: D64.9 - Anemia, unspecified (3) UTI (urinary tract infection), bacterial ICD Codes: N39.0 - Urinary tract infection, site not specified; A49.9 - Bacterial infection, unspecified SNOMED: 631719267 (4) Toxic metabolic encephalopathy ICD Codes: G92 - Toxic encephalopathy SNOMED: 656264850 (5) Aspiration pneumonia ICD Codes: J69.0 - Pneumonitis due to inhalation of food and vomit SNOMED: 116037866 (6) Encephalopathy ICD Codes: G93.40 - Encephalopathy, unspecified SNOMED: 23887053 (7) Sepsis ICD Codes: A41.9 - Sepsis, unspecified organism SNOMED: 64978179 Qualifiers: Qualified Codes: A41.9 - Sepsis, unspecified organism (8) Pneumonia ICD Codes: J18.9 - Pneumonia, unspecified organism SNOMED: 722294772 (9) Status epilepticus ICD Codes: G40.901 - Epilepsy, unspecified, not intractable, with status epilepticus SNOMED: 226728232 Status: stable, progressing Assessment/Plan: cont vent support resp rx gt feeds iv abx check stool ob and iron panel transfuse wound care sz rx hypotonic ivf replace lytes as needed Subjective ROS Limited/Unobtainable: Yes Constitutional: Reports: malaise, weakness HEENT: Reports: no symptoms Cardiovascular: Reports: no symptoms Respiratory: Reports: cough, shortness of breath Gastrointestinal/Abdominal: Reports: difficulty swallowing Genitourinary: Reports: no symptoms Neurologic/Psychiatric: Reports: pre-existing deficit Endocrine: Reports: no symptoms Hematologic/Lymphatic: Reports: anemia Allergies: Coded Allergies: No Known Allergies (Unverified , 01/27/17) All Systems: reviewed and negative except above Subjective no events. labs noted. h/h stable. no reports of bleeding. Objective Last 24 Hour Vital Signs Date Time Temp Pulse Resp B/P (MAP) Pulse Ox O2 Delivery O2 Flow Rate FiO2 01/30/19 16:00 84 6/28/19 16:00 97.5 87 28 137/77 (97) 100 01/30/19 16:00 40 01/30/19 15:22 85 23 40 01/30/19 15:00 Mechanical Ventilator 01/30/19 13:18 83 24 100 Mechanical Ventilator 40 01/30/19 13:07 81 25 100 Mechanical Ventilator 40 01/30/19 13:06 81 25 40 01/30/19 12:00 97.9 79 26 152/83 (106) 100 01/30/19 12:00 82 01/30/19 12:00 Mechanical Ventilator 01/30/19 12:00 40 01/30/19 11:18 82 23 40 01/30/19 10:05 81 19 100 Mechanical Ventilator 40 01/30/19 09:55 73 25 100 Mechanical Ventilator 40 01/30/19 09:30 71 23 40 01/30/19 08:13 98 160/97 01/30/19 08:08 98 160/97 01/30/19 08:00 40 01/30/19 08:00 96 01/30/19 08:00 97.7 98 26 160/97 (118) 100 01/30/19 08:00 Mechanical Ventilator 01/30/19 07:23 91 25 100 Mechanical Ventilator 40 01/30/19 07:13 92 23 100 Mechanical Ventilator 40 01/30/19 07:12 91 25 40 01/30/19 04:54 92 30 40 01/30/19 04:00 Mechanical Ventilator 01/30/19 04:00 97.5 91 18 152/90 (110) 100 01/30/19 04:00 40 01/30/19 03:37 95 01/30/19 02:46 91 28 40 01/30/19 01:07 86 32 100 Mechanical Ventilator 40 01/30/19 00:55 83 27 100 Mechanical Ventilator 40 01/30/19 00:54 83 26 40 01/30/19 00:00 82 01/30/19 00:00 Mechanical Ventilator 01/30/19 00:00 97.9 82 18 155/85 (108) 100 01/29/19 23:13 82 31 40 01/29/19 21:40 76 19 100 Mechanical Ventilator 40 01/29/19 21:28 80 29 100 Mechanical Ventilator 40 01/29/19 21:26 83 33 40 01/29/19 21:07 96 153/94 01/29/19 20:00 95 01/29/19 20:00 Mechanical Ventilator 01/29/19 20:00 40 01/29/19 20:00 97.5 96 22 153/94 (113) 100 01/29/19 19:54 94 30 100 Mechanical Ventilator 40 01/29/19 19:38 95 30 100 Mechanical Ventilator 40 01/29/19 19:34 95 30 40 01/29/19 17:24 89 21 40 Intake and Output 01/29/19 01/30/19 18:59 06:59 Intake Total 1857.5 ml 1295 ml Output Total 950 ml 800 ml Balance 907.5 ml 495 ml Free Water 170 ml 160 ml IV Total 907.5 ml 875 ml Tube Feeding 780 ml 260 ml Output Urine Total 950 ml 800 ml # Voids 1 # Bowel Movements 2 Laboratory Tests 01/30/19 04:45: White Blood Count 9.9, Red Blood Count 3.18L, Hemoglobin 8.5L, Hematocrit 26.9L , Mean Corpuscular Volume 84, Mean Corpuscular Hemoglobin 26.8L, Mean Corpuscular Hemoglobin Concent 31.7L, Red Cell Distribution Width 19.3H, Platelet Count 360, Mean Platelet Volume 4.7L, Neutrophils (%) (Auto) 76.5H, Lymphocytes (%) (Auto) 9.7L, Monocytes (%) (Auto) 6.8, Eosinophils (%) (Auto) 6.7H, Basophils (%) (Auto) 0.2, Sodium Level 144, Potassium Level 3.5, Chloride Level 105, Carbon Dioxide Level 33H, Anion Gap 6, Blood Urea Nitrogen 25H, Creatinine 0.5L, Estimat Glomerular Filtration Rate , Glucose Level 100, Calcium Level 9.0, Total Bilirubin 0.5, Gamma Glutamyl Transpeptidase 211H, Aspartate Amino Transf (AST/SGOT) 27, Alanine Aminotransferase (ALT/SGPT) 13, Alkaline Phosphatase 463H, Total Protein 7.4, Albumin 1.2L, Globulin 6.2, Albumin/Globulin Ratio 0.2L, Alpha Fetoprotein [Pending] Height (Feet): 5 Height (Inches): 5.00 Weight (Pounds): 127 Objective General Appearance: WD/WN, confused Neck: supple Cardiovascular: normal peripheral pulses, normal rate, regular rhythm Respiratory/Chest: chest wall non-tender, lungs clear, normal breath sounds, no respiratory distress Abdomen: normal bowel sounds, non tender, soft, no organomegaly Edema: no edema noted Arm (L), no edema noted Arm (R), no edema noted Leg (L), no edema noted Leg (R), no edema noted Pedal (L), no edema noted Pedal (R), no edema noted Generalized Neurologic: disoriented, unresponsive, aphasia Jarrod Vásquez MD Jan 30, 2019 17:01
--- NOTE | 2019-01-30 17:49 | NUR ---
NURSE NOTES: F/C ntoed leaking and removed. New one (18fr) started per Dr. Vásquez's instruction. Small brown stones noted in old F/C bag. Left a message for Dr. Vásquez informing him of observation. Will continue to monitor.
--- NOTE | 2019-01-30 18:22 | NUR ---
NURSE NOTES: Received call back from Dr. Vásquez with no new orders for stones in mcintyre bag at this time. Dr. Amaya also notified.
--- NOTE | 2019-01-30 19:11 | NUR ---
NURSE NOTES: Received bedside report from LALA Lopez.Patient stable,no s/s of pain,no respiratory distress at this time, SR on cardiac technologist,open eyes,obtunded,trach-vent Portex 7 AC 12 TV 500 FiO2 40% PEEP 5 tolerated setting well,GT running with Vital AF 1.2 x 24 hrs ,@65ml/hr running no residual noted,f/cath for retention,IV asymptomatic,intact on R hand 22G running with NS+20 KCl,bed secured in a low safety position,call light within a reach,will continue to monitor and follow POC.
--- NOTE | 2019-01-30 19:13 | NUR ---
HAND-OFF: Report given to LALA Leggett. Pt in stable condition.
[2019-01-30 20:00] VITALS: BP 124/70
--- NOTE | 2019-01-30 21:15 | Pulmonology Progress Note ---
Assessment/Plan Assessment/Plan Pulmonary CCM Progress Note Assessment/Plan ASSESSMENT: toxic metabolic encephalopathy, history of stroke, chronic respiratory failure, hyponatremia, acute on chronic renal failure, chronic encephalopathy, seizure disorder, pulmonary tuberculosis, and anemia possible sepsis, leukocytosis PLAN care noted TB meds TFN PRN IV antibiotics respiratory care Ventilatory support- no wean SNF meds noted supportive care as is suction as needed oxygen therapy nursing notes reviewed care noted and discussed prognosis poor overall all cultures and planning consultant notes reviewed impression, plan, and exam edited and reviewed in detail care discussed with RN Subjective ROS Limited/Unobtainable: Yes Allergies: Coded Allergies: No Known Allergies Subjective on vent poor loc Objective Vital Signs Noted Objective GENERAL APPEARANCE: The patient is a chronically ill-appearing male, in no apparent distress. unresponsive. NECK: Supple. Trach site is clean, dry, and intact. CARDS: RRR without MRG LUNGS: occasional rhonchi. moderate air entry; no wheeze ABDOMEN: Soft, nontender, and nondistended. GT EXTREMITIES: No clubbing or cyanosis. reduced skin turgor multiple decubitus NEURO: obtunded Laboratory Tests 01/26/19 03:00: White Blood Count 15.1H, Red Blood Count 2.58L, Hemoglobin 6.8*L, Hematocrit 22.1L, Mean Corpuscular Volume 86, Mean Corpuscular Hemoglobin 26.2L, Mean Corpuscular Hemoglobin Concent 30.5L, Red Cell Distribution Width 21.2H, Platelet Count 287, Mean Platelet Volume 4.3L, Neutrophils (%) (Auto) , Lymphocytes (%) (Auto) , Monocytes (%) (Auto) , Eosinophils (%) (Auto) , Basophils (%) (Auto) , Neutrophils % (Manual) [Pending], Lymphocytes % (Manual) [Pending], Platelet Estimate [Pending], Platelet Morphology [Pending], Vancomycin Level Trough 10.2 Current Medications Medications (Trade) Dose Ordered Sig/Iram Route PRN Reason Start Time Stop Time Status Last Admin Dose Admin Acetaminophen (Tylenol) 650 mg Q4H PRN NG fever 01/23/19 10:21 02/22/19 10:20 01/25/19 08:14 Acetaminophen/ Hydrocodone Bitart ([place] 10/325) 1 tab Q4H PRN ORAL For Pain 01/23/19 15:45 01/30/19 15:44 01/26/19 01:45 Albuterol/ Ipratropium (Albuterol/ Ipratropium) 3 ml Q6HRT HHN 01/23/19 13:00 01/28/19 12:59 01/26/19 07:34 Ascorbic Acid (Vitamin C) 500 mg BID GT 01/23/19 11:00 02/22/19 10:59 01/25/19 17:02 Famotidine (Pepcid) 20 mg BID GT 01/23/19 10:21 02/22/19 10:20 01/25/19 17:02 Heparin Sodium (Porcine) (Heparin 5000 units/ml) 5,000 units EVERY 12 HOURS SUBQ 01/23/19 21:00 02/22/19 20:59 01/25/19 21:06 Levetiracetam (Keppra) 750 mg Q12HR GT 01/23/19 10:21 02/22/19 10:20 01/25/19 21:07 Metoprolol Tartrate (Lopressor) 50 mg Q12HR GT 01/25/19 09:00 02/24/19 08:59 01/25/19 21:06 Piperacillin Sod/ Tazobactam Sod 3.375 gm/Sodium Chloride 110 ml @ 27.5 mls/hr EVERY 8 HOURS IVPB 01/23/19 06:00 01/28/19 05:59 01/26/19 05:14 Sodium Hypochlorite (Dakin's Quarter Strength) 1 applic DAILY TOPIC 01/25/19 09:00 02/23/19 17:59 01/25/19 08:14 Sodium Chloride 1,000 ml @ 75 mls/hr [id number] IV 01/26/19 02:45 02/25/19 02:44 01/26/19 03:02 Vancomycin HCl (Vanco rx to dose) 1 ea DAILY PRN MISC Per rx protocol 01/23/19 02:45 02/22/19 02:44 Vancomycin HCl 1.25 gm/Dextrose 275 ml @ 183.333 mls/hr Q24H IVPB 01/26/19 06:00 01/31/19 05:59 01/26/19 05:14 Subjective ROS Limited/Unobtainable: No Allergies: Coded Allergies: No Known Allergies (Unverified , 01/27/17) Objective Last 24 Hour Vital Signs Date Time Temp Pulse Resp B/P (MAP) Pulse Ox O2 Delivery O2 Flow Rate FiO2 01/30/19 20:23 90 138/72 01/30/19 20:00 40 01/30/19 20:00 90 01/30/19 20:00 98.2 91 29 124/70 (88) 100 01/30/19 20:00 Mechanical Ventilator 01/30/19 19:11 88 24 100 Mechanical Ventilator 40 01/30/19 19:04 87 29 100 Mechanical Ventilator 40 01/30/19 19:02 87 29 40 40 01/30/19 17:35 Mechanical Ventilator 01/30/19 17:34 93 29 40 01/30/19 17:30 Mechanical Ventilator 01/30/19 16:00 84 01/30/19 16:00 97.5 87 28 137/77 (97) 100 01/30/19 16:00 40 01/30/19 15:22 85 23 40 01/30/19 15:00 Mechanical Ventilator 01/30/19 13:18 83 24 100 Mechanical Ventilator 40 01/30/19 13:07 81 25 100 Mechanical Ventilator 40 01/30/19 13:06 81 25 40 01/30/19 12:00 97.9 79 26 152/83 (106) 100 01/30/19 12:00 82 01/30/19 12:00 Mechanical Ventilator 01/30/19 12:00 40 01/30/19 11:18 82 23 40 01/30/19 10:05 81 19 100 Mechanical Ventilator 40 01/30/19 09:55 73 25 100 Mechanical Ventilator 40 01/30/19 09:30 71 23 40 01/30/19 08:13 98 160/97 01/30/19 08:08 98 160/97 01/30/19 08:00 40 01/30/19 08:00 96 01/30/19 08:00 97.7 98 26 160/97 (118) 100 01/30/19 08:00 Mechanical Ventilator 01/30/19 07:23 91 25 100 Mechanical Ventilator 40 01/30/19 07:13 92 23 100 Mechanical Ventilator 40 01/30/19 07:12 91 25 40 01/30/19 04:54 92 30 40 01/30/19 04:00 Mechanical Ventilator 01/30/19 04:00 97.5 91 18 152/90 (110) 100 01/30/19 04:00 40 01/30/19 03:37 95 01/30/19 02:46 91 28 40 01/30/19 01:07 86 32 100 Mechanical Ventilator 40 01/30/19 00:55 83 27 100 Mechanical Ventilator 40 01/30/19 00:54 83 26 40 01/30/19 00:00 82 01/30/19 00:00 Mechanical Ventilator 01/30/19 00:00 97.9 82 18 155/85 (108) 100 01/29/19 23:13 82 31 40 01/29/19 21:40 76 19 100 Mechanical Ventilator 40 01/29/19 21:28 80 29 100 Mechanical Ventilator 40 01/29/19 21:26 83 33 40 Intake and Output 01/29/19 01/30/19 19:00 07:00 Intake Total 1690.0 ml 1295 ml Output Total 950 ml 800 ml Balance 740.0 ml 495 ml Free Water 170 ml 160 ml IV Total 805.0 ml 875 ml Tube Feeding 715 ml 260 ml Output Urine Total 950 ml 800 ml # Voids 1 # Bowel Movements 2 Laboratory Tests 01/30/19 04:45: White Blood Count 9.9, Red Blood Count 3.18L, Hemoglobin 8.5L, Hematocrit 26.9L , Mean Corpuscular Volume 84, Mean Corpuscular Hemoglobin 26.8L, Mean Corpuscular Hemoglobin Concent 31.7L, Red Cell Distribution Width 19.3H, Platelet Count 360, Mean Platelet Volume 4.7L, Neutrophils (%) (Auto) 76.5H, Lymphocytes (%) (Auto) 9.7L, Monocytes (%) (Auto) 6.8, Eosinophils (%) (Auto) 6.7H, Basophils (%) (Auto) 0.2, Sodium Level 144, Potassium Level 3.5, Chloride Level 105, Carbon Dioxide Level 33H, Anion Gap 6, Blood Urea Nitrogen 25H, Creatinine 0.5L, Estimat Glomerular Filtration Rate , Glucose Level 100, Calcium Level 9.0, Total Bilirubin 0.5, Gamma Glutamyl Transpeptidase 211H, Aspartate Amino Transf (AST/SGOT) 27, Alanine Aminotransferase (ALT/SGPT) 13, Alkaline Phosphatase 463H, Total Protein 7.4, Albumin 1.2L, Globulin 6.2, Albumin/Globulin Ratio 0.2L, Alpha Fetoprotein [Pending] Current Medications Medications (Trade) Dose Ordered Sig/Iram Route PRN Reason Start Time Stop Time Status Last Admin Dose Admin Acetaminophen (Tylenol) 650 mg Q4H PRN NG fever 01/23/19 10:21 02/22/19 10:20 01/28/19 20:41 Acetaminophen/ Hydrocodone Bitart ([place] 10/325) 1 tab Q4H PRN GT For Pain 01/29/19 15:00 02/04/19 14:59 Albuterol/ Ipratropium (Albuterol/ Ipratropium) 3 ml Q6HRT HHN 01/28/19 19:00 02/02/19 18:59 01/30/19 19:04 Amlodipine Besylate (Norvasc) 5 mg DAILY ORAL 01/30/19 09:00 03/01/19 08:59 01/30/19 08:13 Ascorbic Acid (Vitamin C) 500 mg DAILY GT 01/31/19 09:00 03/02/19 08:59 Barium Sulfate (Readi-Cat 2) 450 ml NOW PRN ORAL Radiology Procedure 01/29/19 11:45 01/31/19 11:43 01/30/19 09:30 Colistimethate Sodium (Colistin *inhalation use only*) 75 mg Q12HR@10,22 INH 01/26/19 12:00 02/02/19 11:59 01/30/19 09:54 Dextrose/ Electrolytes 1,000 ml @ 100 mls/hr Q10H IV 01/29/19 20:30 02/28/19 20:29 01/30/19 16:55 Heparin Sodium (Porcine) (Heparin 5000 units/ml) 5,000 units EVERY 12 HOURS SUBQ 01/30/19 09:00 03/01/19 08:59 01/30/19 20:24 Lansoprazole (Prevacid) 30 mg DAILY GT 01/29/19 09:00 02/28/19 08:59 01/30/19 08:07 Levetiracetam (Keppra) 750 mg Q12HR GT 01/23/19 10:21 02/22/19 10:20 01/30/19 20:22 Metoprolol Tartrate (Lopressor) 50 mg Q12HR GT 01/25/19 09:00 02/24/19 08:59 01/30/19 20:23 Multivitamins (Multivitamins) 1 tab DAILY GT 01/31/19 09:00 03/02/19 08:59 Sodium Hypochlorite (Dakin's Quarter Strength) 1 applic DAILY TOPIC 01/25/19 09:00 02/23/19 17:59 01/30/19 09:19 Jones Rasmussen MD Jan 30, 2019 21:15
[2019-01-31] VITALS: BP 119/60
[2019-01-31] MEDS: Albuterol/Ipratropium 3ml neb HHN SCH ×4 (01:27→19:32)
--- NOTE | 2019-01-31 03:00 | Progress Note ---
DATE: 01/30/2019 CARDIOLOGY PROGRESS NOTE SUBJECTIVE: The patient remains on ventilator support via trach. No signs of bleeding noted. He continues on hypotonic hydration. He has required transfusions on several occasions. OBJECTIVE: GENERAL: Noncommunicative. VITAL SIGNS: Blood pressure 152/83, pulse 79, and respirations 26. HEENT: Thin trach secretions. LUNGS: Coarse breath sounds with few rhonchi. HEART: Regular rhythm and rate. Normal S1, S2. ABDOMEN: Soft. G-tube intact. EXTREMITIES: No edema. LABORATORY DATA: White count 9.9 and hemoglobin 8.5. Potassium 3.5, BUN 25, and creatinine 0.5. Albumin 1.2. IMPRESSION: 1. Respiratory failure. 2. Healthcare-acquired pneumonia. 3. Dehydration and hypernatremia, improved. 4. Hypokalemia, corrected. 5. Severe protein-calorie malnutrition on G-tube feedings. 6. Ventilator-dependent respiratory failure. 7. Chronic liver disease. PLAN: 1. CT scan of the abdomen will be reviewed. 2. Continue antimicrobials. 3. Ventilator support. 4. Adjust intravenous fluids. 5. Serial hemoglobin and transfuse as needed. Jones Arauz M.D. DR: ERICA JOB#: [id number] CC:
[2019-01-31] MEDS: D5W w/KCl 20mEq 1,000 ML IV SCH ×2 (03:23→13:55)
[2019-01-31 04:00] VITALS: BP 121/78
--- NOTE | 2019-01-31 04:30 | NUR ---
NURSE NOTES: Called for PRN meds for seizures,rapid respond initiated,waiting for new orders,charge nurse aware
[2019-01-31] MEDS ORDERED: LORazepam Inj 2mg/ml 1ml ONE ×2 (04:33→04:37)
--- NOTE | 2019-01-31 04:43 | NUR ---
NURSE NOTES: Called for new order for prolong seizures,waiting for .Rapid respond initiated
--- NOTE | 2019-01-31 05:00 | NUR ---
NURSE NOTES: and notified,no responding at this time,nursing supervisor dock aware.
--- NOTE | 2019-01-31 05:21 | NUR ---
NURSE NOTES: called back ,new order received for Ativan PRN.
[2019-01-31] MEDS ORDERED: LORazepam Inj 2mg/ml 1ml IV PRN (05:30)
--- NOTE | 2019-01-31 06:20 | NUR ---
NURSE NOTES: Family notified regarding patient's condition over night,spoke with pt's .
[2019-01-31 06:21] LABS: HEMATOCRIT 27.8 % (42.0-52.0); HEMOGLOBIN 8.4 G/DL (14.2-18.0); MEAN CORPUSCULAR VOLUME 88 FL (80-99); PLATELET COUNT 381 K/UL (150-450); RED BLOOD COUNT 3.15 M/UL (4.70-6.10); RED CELL DISTRIBUTION WIDTH 18.9 % (11.6-14.8); WHITE BLOOD COUNT 11.8 K/UL (4.8-10.8)
--- NOTE | 2019-01-31 07:20 | NUR ---
NURSE NOTES: Received bedside report from Betsey REEVES. Pt. in bed, occasionally opens eyes. No sign of distress. On vent with settings of AC 12, VT 500, Fio2 40%, PEEP +5. Patient has a Cuffed Portex 7 tracheostomy, secured with trach ties, and is vent dependent. No grimacing noted. F/C in placed patent/intact draining yellow colored urine. GTF in placed patent/intact running Vital AF at 65cc/hr tolerating well. HOB elevated at all times. IV line at right hand #22g. in placed running D5W with KCL 20meq. Tolerating well. Padded side rails in placed. Bed in low position, locked. Call light within reach. Will cont. to monitor.
--- NOTE | 2019-01-31 07:22 | NUR ---
HAND-OFF: Report given to LALA Barragan.Patient stable,no seizure activities at this moment.
--- NOTE | 2019-01-31 07:27 | NUR ---
RESPIRATORY NOTES: Received Patient on Vent Settings of AVCV RR 12, VT 500, Fio2 40%, PEEP +5. Patient has a Cuffed Portex 7 tracheostomy, secured with trach ties, and is vent dependent.Bilateral breath sounds reveal rhonchi. Suction large amounts of singer secretions Q2 and PRN. Alarms are on and audible. Vent is plugged into red outlet. Will continue to closely monitor patient throughout the day.
[2019-01-31 07:43] LABS: ANION GAP 2 mmol/L (5-15); BLOOD UREA NITROGEN 27 mg/dL (7-18); CALCIUM 8.9 MG/DL (8.5-10.1); CARBON DIOXIDE 34 MMOL/L (21-32); CHLORIDE 97 MMOL/L (98-107); CREATININE 0.6 MG/DL (0.55-1.30); SODIUM 133 MMOL/L (136-145)
[2019-01-31 08:00] VITALS: BP 145/68
[2019-01-31] MEDS: Colistin for inhalation INH SCH ×2 (08:57→21:55)
[2019-01-31] MEDS: levETIRAcetam 500mg/5ml Liquid GT SCH ×2 (09:55→20:20)
[2019-01-31] MEDS: Metoprolol Tartrate 50mg tab GT SCH ×2 (09:56→20:19)
[2019-01-31] MEDS: Dakin's 0.125% Soln (Quarter Strength) 16oz TOPIC SCH (09:56)
[2019-01-31] MEDS: Ascorbic Acid 500mg tab GT SCH (09:56)
[2019-01-31] MEDS: Heparin 5000 units/ml inj SUBQ SCH ×2 (10:00→20:21)
[2019-01-31 12:00] VITALS: BP 147/75
--- NOTE | 2019-01-31 13:35 | Surgery Progress Note ---
Surgery Progress Note Subjective Additional Comments Tachycardic leukocytosis Anemia Objective Last 24 Hour Vital Signs Date Time Temp Pulse Resp B/P (MAP) Pulse Ox O2 Delivery O2 Flow Rate FiO2 01/31/19 13:11 186 12 100 Mechanical Ventilator 40 01/31/19 13:08 83 25 40 01/31/19 13:02 83 12 100 Mechanical Ventilator 40 01/31/19 12:00 99.3 102 28 147/75 (99) 100 01/31/19 12:00 Mechanical Ventilator 01/31/19 12:00 40 01/31/19 11:19 102 30 40 01/31/19 09:56 105 145/68 01/31/19 09:55 105 145/68 01/31/19 08:59 105 13 100 Mechanical Ventilator 40 01/31/19 08:56 106 23 40 01/31/19 08:54 106 23 100 Mechanical Ventilator 40 01/31/19 08:00 40 01/31/19 08:00 Mechanical Ventilator 01/31/19 08:00 98.8 108 22 145/68 (93) 100 01/31/19 07:30 103 01/31/19 07:07 102 12 100 Mechanical Ventilator 40 01/31/19 07:04 98 27 40 01/31/19 07:00 98 12 100 Mechanical Ventilator 40 01/31/19 04:57 110 23 40 40 01/31/19 04:00 Mechanical Ventilator 01/31/19 04:00 40 01/31/19 04:00 97.6 84 28 121/78 (92) 100 01/31/19 04:00 84 01/31/19 03:35 64 01/31/19 03:10 84 18 40 40 01/31/19 01:33 83 16 100 Mechanical Ventilator 40 01/31/19 01:27 86 16 100 Mechanical Ventilator 40 01/31/19 01:26 86 16 40 40 01/31/19 00:00 76 01/31/19 00:00 98.3 76 26 119/60 (79) 100 01/31/19 00:00 Mechanical Ventilator 01/30/19 23:40 76 16 100 Mechanical Ventilator 40 01/30/19 23:29 76 17 40 40 01/30/19 23:29 76 17 100 Mechanical Ventilator 40 01/30/19 21:29 89 30 40 40 01/30/19 20:23 90 138/72 01/30/19 20:00 40 01/30/19 20:00 90 01/30/19 20:00 98.2 91 29 124/70 (88) 100 01/30/19 20:00 Mechanical Ventilator 01/30/19 19:11 88 24 100 Mechanical Ventilator 40 01/30/19 19:04 87 29 100 Mechanical Ventilator 40 01/30/19 19:02 87 29 40 40 01/30/19 17:35 Mechanical Ventilator 01/30/19 17:34 93 29 40 01/30/19 17:30 Mechanical Ventilator 01/30/19 16:00 84 01/30/19 16:00 97.5 87 28 137/77 (97) 100 01/30/19 16:00 40 01/30/19 15:22 85 23 40 01/30/19 15:00 Mechanical Ventilator I&O Intake and Output 01/30/19 01/31/19 19:00 07:00 Intake Total 1620 ml 2011.6 ml Output Total 800 ml Balance 820 ml 2011.6 ml Free Water 50 ml 300 ml IV Total 1050 ml 1061.6 ml Tube Feeding 520 ml 650 ml Output Urine Total 800 ml # Voids 1 # Bowel Movements 2 1 Dressing: saturated Wound: other Drains: other Cardiovascular: RSR Respiratory: clear, decreased breath sounds Abdomen: present bowel sounds Extremities: no cyanosis, other Laboratory Tests Test 01/31/19 06:00 White Blood Count 11.8 K/UL (4.8-10.8) H Red Blood Count 3.15 M/UL (4.70-6.10) L Hemoglobin 8.4 G/DL (14.2-18.0) L Hematocrit 27.8 % (42.0-52.0) L Mean Corpuscular Volume 88 FL (80-99) Mean Corpuscular Hemoglobin 26.7 PG (27.0-31.0) L Mean Corpuscular Hemoglobin Concent 30.2 G/DL (32.0-36.0) L Red Cell Distribution Width 18.9 % (11.6-14.8) H Platelet Count 381 K/UL (150-450) Mean Platelet Volume 4.9 FL (6.5-10.1) L Neutrophils (%) (Auto) % (45.0-75.0) Lymphocytes (%) (Auto) % (20.0-45.0) Monocytes (%) (Auto) % (1.0-10.0) Eosinophils (%) (Auto) % (0.0-3.0) Basophils (%) (Auto) % (0.0-2.0) Differential Total Cells Counted 100 Neutrophils % (Manual) 91 % (45-75) H Lymphocytes % (Manual) 5 % (20-45) L Monocytes % (Manual) 2 % (1-10) Eosinophils % (Manual) 2 % (0-3) Basophils % (Manual) 0 % (0-2) Band Neutrophils 0 % (0-8) Platelet Estimate Adequate Platelet Morphology Normal Hypochromasia 1+ Anisocytosis 1+ Sodium Level 133 MMOL/L (136-145) L Potassium Level 5.0 MMOL/L (3.5-5.1) Chloride Level 97 MMOL/L (98-107) L Carbon Dioxide Level 34 MMOL/L (21-32) H Anion Gap 2 mmol/L (5-15) L Blood Urea Nitrogen 27 mg/dL (7-18) H Creatinine 0.6 MG/DL (0.55-1.30) Estimat Glomerular Filtration Rate mL/min (>60) Glucose Level 110 MG/DL (74-106) H Calcium Level 8.9 MG/DL (8.5-10.1) Plan Problems: (1) HCAP (healthcare-associated pneumonia) (2) Decubitus ulcer Assessment & Plan: Pt presented on admission with multiple pressure injuries. Resolving pressure injury L occipital. Dry pink epithelial noted. Skin assessed under trach collar and no areas of concerns noted . R and L ears dry . Full thickness pressure injury with undermining thoracic spine . Base of wound 75% granular with 25% fibrinous slough. Mild odor noted.(L)8.5cm x (W)6.5cmx(D) 1cm, undermining clockwise 6-1 by 3cm @12o'clock. Full thickness pressure injury L trochanter. 100% mixed necrosis/slough at base of wound and undermined borders.Non-blanchable erythema with induration noted periwound. Mild odor noted .(L)3.5cm x (W)4.5cm. Resolving DTPI L ischium .Centrally wound is red and fluctuant .Bone is palpable. Black with red tinged indurated borders noted. (L) (L)4.4cm x (W) 3.2cm. Ful thickness pressure injury R Iliac with 10% velazquez slough centrally.90% granular.Edges adherent and flat. (L)3cm x (W)3.2cm x(D)0.2cm. No odor or exudate noted.Darker skin tone without fluctuance noted periwound. Full thickness pressure injury with undermining R trochanter. Base of wound 60^ beefy red with 40% velazquez slough.erythejma noted along borders. Small amt seropurulent exudate that is mildly odorous.(L)5.5cm x (W)6.6cm x (D)1.5cm, undermining clockwise 12-12 by 4.5cm @3o'clock. Full thickness pressure injury R ischium (L)4.2cm x (W)5.5cm x(D)1.6cm, undermining 12-12 by 1.8cm @12o'clock .Base of wound 60% granular ,40% velazquez slough undermined borders.Wound has mild odor with small amt seropurulent exudate.darker skin tone that is indurated periwound. Resolving pressure injury sacrum . Base of wound dry with pink epithelial.with scattered shearing within base of wound. L heel boggy with non-blanchable erythema. DTPI R heel and Lateral aspect .Base of wound is maroon with fluctuance. (L) 4.5cm x (W)7.3cm. Tx.Plan. Cleanse wounds Thoracic and lumbar spine with Dakin's 0.125% segun. Pack with Dakin's moist gauze. Apply Moisture Barrier Paste periwound. Cover each wound with Optifoam drsg.Twice Daily and prn. Cleanse wound L trochanter and L ischium with Dakin's 0.125% segun. Pack with Dakin's moist Gauze.Apply Moisture Barrier paste periwound. Cover with Optifoam drsg. Twice daily and prn. Cleanse wounds R iliac ,R trochanter,R ischium with Dakin's 0.125% segun. Pack with Dakin's moist gauze. Apply Moisture Barrier Paste periwound. Cover with Optifoam drsg Twice daily and prn. Apply Moisture Barrier paste to sacrum. Cover with Optifoam drsg. Change every 3 days and prn. Apply Cavilon Skin Barrier to Both heels. Cover each heel with Optifoam drsg. Change every 7 days and prn. Air Fluidized Mattress. Reposition at least every 2hours or as tolerated. Off-load heels with pillow. Spoke with family. I explained to them that his condition has been deteriorating for some time now. i have seen him in the past and during each admission his wounds are deteriorating despite best efforts at care. He has received adequate nutritional support/supplementation, adequate wound care, and appropriate prevention while in hospital during each admission but wounds continue to deteriorate. they expressed understanding. 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 . 2) Increased kcal/prot needs R/T underweight status w/ wasting, and wound healing as evidenced by low BMI under guidelines, noted w/ severe generalized wasting, pt w/ multiple advanced wounds, pending eval ENTERAL NUTRITION RECOMMENDATIONS: Vital AF 1.2 @ 65ml/hr x 24 hrs to provide 1560ml, 1872kcal, 117g prot, 1265ml free water - Maintain Vital AF 1.2 @ 65ml/hr as tolerated - Meets 100% est kcal and protein needs. - HOB over 30 degrees/ water flush per MD ADDITIONAL RECOMMENDATIONS: 1) WOUND HEALING: add Vit C 500mg BID, Edgard 1pkt BID 2) RECALIBRATE BED SCALE FOR ACCURATE CBW + weekly wt monitoring given underweight status 3) Check lytes daily, replete as needed - (Low K, mg) 4) Continue to maintain calibrated bed scale wts (13) Encephalopathy (14) Sepsis Assessment & Plan: Leukocytosis improved cont with IV fluids Cont with IV abx as per ID CXR noted labs noted Thank you for this consultation we will follow with recommendations (15) Pneumonia (16) Status epilepticus (17) HTN (hypertension) (18) Encephalopathy acute (19) BPH (benign prostatic hyperplasia) (20) Abnormal LFTs (21) Probable sepsis (2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
--- NOTE | 2019-01-31 13:41 | Pulmonology Progress Note ---
Assessment/Plan Assessment/Plan Pulmonary CCM Progress Note Assessment/Plan ASSESSMENT: toxic metabolic encephalopathy, history of stroke, chronic respiratory failure, hyponatremia, acute on chronic renal failure, chronic encephalopathy, seizure disorder, pulmonary tuberculosis, and anemia possible sepsis, leukocytosis H/H stable PLAN care noted TB meds TFN PRN IV antibiotics respiratory care Ventilatory support- no [facility] meds noted supportive care as is suction as needed oxygen therapy nursing notes reviewed care noted and discussed prognosis poor overall all cultures and oracle soa consultant notes reviewed impression, plan, and exam edited and reviewed in detail care discussed with RN Subjective ROS Limited/Unobtainable: Yes Allergies: Coded Allergies: No Known Allergies Subjective on vent poor loc Objective Vital Signs Noted Objective GENERAL APPEARANCE: The patient is a chronically ill-appearing male, in no apparent distress. unresponsive. NECK: Supple. Trach site is clean, dry, and intact. CARDS: RRR without MRG LUNGS: occasional rhonchi. moderate air entry; no wheeze ABDOMEN: Soft, nontender, and nondistended. GT EXTREMITIES: No clubbing or cyanosis. reduced skin turgor multiple decubitus NEURO: obtunded Laboratory Tests 01/26/19 03:00: White Blood Count 15.1H, Red Blood Count 2.58L, Hemoglobin 6.8*L, Hematocrit 22.1L, Mean Corpuscular Volume 86, Mean Corpuscular Hemoglobin 26.2L, Mean Corpuscular Hemoglobin Concent 30.5L, Red Cell Distribution Width 21.2H, Platelet Count 287, Mean Platelet Volume 4.3L, Neutrophils (%) (Auto) , Lymphocytes (%) (Auto) , Monocytes (%) (Auto) , Eosinophils (%) (Auto) , Basophils (%) (Auto) , Neutrophils % (Manual) [Pending], Lymphocytes % (Manual) [Pending], Platelet Estimate [Pending], Platelet Morphology [Pending], Vancomycin Level Trough 10.2 Current Medications Medications (Trade) Dose Ordered Sig/Iram Route PRN Reason Start Time Stop Time Status Last Admin Dose Admin Acetaminophen (Tylenol) 650 mg Q4H PRN NG fever 01/23/19 10:21 02/22/19 10:20 01/25/19 08:14 Acetaminophen/ Hydrocodone Bitart ([place] 10/325) 1 tab Q4H PRN ORAL For Pain 01/23/19 15:45 01/30/19 15:44 01/26/19 01:45 Albuterol/ Ipratropium (Albuterol/ Ipratropium) 3 ml Q6HRT HHN 01/23/19 13:00 01/28/19 12:59 01/26/19 07:34 Ascorbic Acid (Vitamin C) 500 mg BID GT 01/23/19 11:00 02/22/19 10:59 01/25/19 17:02 Famotidine (Pepcid) 20 mg BID GT 01/23/19 10:21 02/22/19 10:20 01/25/19 17:02 Heparin Sodium (Porcine) (Heparin 5000 units/ml) 5,000 units EVERY 12 HOURS SUBQ 01/23/19 21:00 02/22/19 20:59 01/25/19 21:06 Levetiracetam (Keppra) 750 mg Q12HR GT 01/23/19 10:21 02/22/19 10:20 01/25/19 21:07 Metoprolol Tartrate (Lopressor) 50 mg Q12HR GT 01/25/19 09:00 02/24/19 08:59 01/25/19 21:06 Piperacillin Sod/ Tazobactam Sod 3.375 gm/Sodium Chloride 110 ml @ 27.5 mls/hr EVERY 8 HOURS IVPB 01/23/19 06:00 01/28/19 05:59 01/26/19 05:14 Sodium Hypochlorite (Dakin's Quarter Strength) 1 applic DAILY TOPIC 01/25/19 09:00 02/23/19 17:59 01/25/19 08:14 Sodium Chloride 1,000 ml @ 75 mls/hr [id number] IV 01/26/19 02:45 02/25/19 02:44 01/26/19 03:02 Vancomycin HCl (Vanco rx to dose) 1 ea DAILY PRN MISC Per rx protocol 01/23/19 02:45 02/22/19 02:44 Vancomycin HCl 1.25 gm/Dextrose 275 ml @ 183.333 mls/hr Q24H IVPB 01/26/19 06:00 01/31/19 05:59 01/26/19 05:14 Subjective ROS Limited/Unobtainable: No Allergies: Coded Allergies: No Known Allergies (Unverified , 01/27/17) Objective Last 24 Hour Vital Signs Date Time Temp Pulse Resp B/P (MAP) Pulse Ox O2 Delivery O2 Flow Rate FiO2 01/31/19 13:11 186 12 100 Mechanical Ventilator 40 01/31/19 13:08 83 25 40 01/31/19 13:02 83 12 100 Mechanical Ventilator 40 01/31/19 12:00 99.3 102 28 147/75 (99) 100 01/31/19 12:00 Mechanical Ventilator 01/31/19 12:00 40 01/31/19 11:19 102 30 40 01/31/19 09:56 105 145/68 01/31/19 09:55 105 145/68 01/31/19 08:59 105 13 100 Mechanical Ventilator 40 01/31/19 08:56 106 23 40 01/31/19 08:54 106 23 100 Mechanical Ventilator 40 01/31/19 08:00 40 01/31/19 08:00 Mechanical Ventilator 01/31/19 08:00 98.8 108 22 145/68 (93) 100 01/31/19 07:30 103 01/31/19 07:07 102 12 100 Mechanical Ventilator 40 01/31/19 07:04 98 27 40 01/31/19 07:00 98 12 100 Mechanical Ventilator 40 01/31/19 04:57 110 23 40 40 01/31/19 04:00 Mechanical Ventilator 01/31/19 04:00 40 01/31/19 04:00 97.6 84 28 121/78 (92) 100 01/31/19 04:00 84 01/31/19 03:35 64 01/31/19 03:10 84 18 40 40 01/31/19 01:33 83 16 100 Mechanical Ventilator 40 01/31/19 01:27 86 16 100 Mechanical Ventilator 40 01/31/19 01:26 86 16 40 40 01/31/19 00:00 76 01/31/19 00:00 98.3 76 26 119/60 (79) 100 01/31/19 00:00 Mechanical Ventilator 01/30/19 23:40 76 16 100 Mechanical Ventilator 40 01/30/19 23:29 76 17 40 40 01/30/19 23:29 76 17 100 Mechanical Ventilator 40 01/30/19 21:29 89 30 40 40 01/30/19 20:23 90 138/72 01/30/19 20:00 40 01/30/19 20:00 90 01/30/19 20:00 98.2 91 29 124/70 (88) 100 01/30/19 20:00 Mechanical Ventilator 01/30/19 19:11 88 24 100 Mechanical Ventilator 40 01/30/19 19:04 87 29 100 Mechanical Ventilator 40 01/30/19 19:02 87 29 40 40 01/30/19 17:35 Mechanical Ventilator 01/30/19 17:34 93 29 40 01/30/19 17:30 Mechanical Ventilator 01/30/19 16:00 84 01/30/19 16:00 97.5 87 28 137/77 (97) 100 01/30/19 16:00 40 01/30/19 15:22 85 23 40 01/30/19 15:00 Mechanical Ventilator Intake and Output 01/30/19 01/31/19 18:59 06:59 Intake Total 1455 ml 2076.6 ml Output Total 800 ml Balance 655 ml 2076.6 ml Free Water 50 ml 300 ml IV Total 950 ml 1061.6 ml Tube Feeding 455 ml 715 ml Output Urine Total 800 ml # Voids 1 # Bowel Movements 2 1 Laboratory Tests 01/31/19 06:00: White Blood Count 11.8H, Red Blood Count 3.15L, Hemoglobin 8.4L, Hematocrit 27.8L, Mean Corpuscular Volume 88, Mean Corpuscular Hemoglobin 26.7L, Mean Corpuscular Hemoglobin Concent 30.2L, Red Cell Distribution Width 18.9H, Platelet Count 381, Mean Platelet Volume 4.9L, Neutrophils (%) (Auto) , Lymphocytes (%) (Auto) , Monocytes (%) (Auto) , Eosinophils (%) (Auto) , Basophils (%) (Auto) , Differential Total Cells Counted 100, Neutrophils % ( Manual) 91H, Lymphocytes % (Manual) 5L, Monocytes % (Manual) 2, Eosinophils % ( Manual) 2, Basophils % (Manual) 0, Band Neutrophils 0, Platelet Estimate Adequate, Platelet Morphology Normal, Hypochromasia 1+, Anisocytosis 1+, Sodium Level 133L, Potassium Level 5.0, Chloride Level 97L, Carbon Dioxide Level 34H, Anion Gap 2L, Blood Urea Nitrogen 27H, Creatinine 0.6, Estimat Glomerular Filtration Rate , Glucose Level 110H, Calcium Level 8.9 Current Medications Medications (Trade) Dose Ordered Sig/Iram Route PRN Reason Start Time Stop Time Status Last Admin Dose Admin Acetaminophen (Tylenol) 650 mg Q4H PRN NG fever 01/23/19 10:21 02/22/19 10:20 01/28/19 20:41 Acetaminophen/ Hydrocodone Bitart ([place] 10/325) 1 tab Q4H PRN GT For Pain 01/29/19 15:00 02/04/19 14:59 Albuterol/ Ipratropium (Albuterol/ Ipratropium) 3 ml Q6HRT HHN 01/28/19 19:00 02/02/19 18:59 01/31/19 13:10 Amlodipine Besylate (Norvasc) 5 mg DAILY ORAL 01/30/19 09:00 03/01/19 08:59 01/31/19 09:55 Ascorbic Acid (Vitamin C) 500 mg DAILY GT 01/31/19 09:00 03/02/19 08:59 01/31/19 09:56 Colistimethate Sodium (Colistin *inhalation use only*) 75 mg Q12HR@10,22 INH 01/26/19 12:00 02/02/19 11:59 01/31/19 08:57 Dextrose/ Electrolytes 1,000 ml @ 100 mls/hr Q10H IV 01/29/19 20:30 02/28/19 20:29 01/31/19 03:23 Heparin Sodium (Porcine) (Heparin 5000 units/ml) 5,000 units EVERY 12 HOURS SUBQ 01/30/19 09:00 03/01/19 08:59 01/31/19 10:00 Lansoprazole (Prevacid) 30 mg DAILY GT 01/29/19 09:00 02/28/19 08:59 01/31/19 09:56 Levetiracetam (Keppra) 750 mg Q12HR GT 01/23/19 10:21 02/22/19 10:20 01/31/19 09:55 Lorazepam (Ativan 2mg/ml 1ml) 1 mg Q1H PRN IV For Seizures 01/31/19 05:30 02/07/19 05:29 Metoprolol Tartrate (Lopressor) 50 mg Q12HR GT 01/25/19 09:00 7/23/19 08:59 01/31/19 09:56 Multivitamins (Multivitamins) 1 tab DAILY GT 01/31/19 09:00 03/02/19 08:59 01/31/19 09:56 Sodium Hypochlorite (Dakin's Quarter Strength) 1 applic DAILY TOPIC 01/25/19 09:00 02/23/19 17:59 01/31/19 09:56 Jones Rasmussen MD Jan 31, 2019 13:41
[2019-01-31] MEDS ORDERED: Sterile Water Irrig 1000ml IRRIG ONE (15:40)
[2019-01-31 16:00] VITALS: BP 132/69
--- NOTE | 2019-01-31 16:00 | NUR ---
NURSE NOTES: Seen by Dr. Rasmussen with new order.
--- NOTE | 2019-01-31 19:13 | NUR ---
HAND-OFF: Report given to Yamileth REEVES. Pt. remain stable. No seizure episode noted.
--- NOTE | 2019-01-31 19:15 | NUR ---
NURSE NOTES: Received patient from LALA Barragan. Will continue plan of care.
--- NOTE | 2019-01-31 19:24 | General Progress Note ---
Assessment/Plan Problem List: (1) Decubitus ulcer ICD Codes: L89.90 - Pressure ulcer of unspecified site, unspecified stage SNOMED: 429896090 Qualifiers: Qualified Codes: L89.94 - Pressure ulcer of unspecified site, stage 4 (2) Anemia ICD Codes: D64.9 - Anemia, unspecified SNOMED: 945661944 Qualifiers: Qualified Codes: D64.9 - Anemia, unspecified (3) UTI (urinary tract infection), bacterial ICD Codes: N39.0 - Urinary tract infection, site not specified; A49.9 - Bacterial infection, unspecified SNOMED: 474162929 (4) Toxic metabolic encephalopathy ICD Codes: G92 - Toxic encephalopathy SNOMED: 759142878 (5) Aspiration pneumonia ICD Codes: J69.0 - Pneumonitis due to inhalation of food and vomit SNOMED: 920352977 (6) Encephalopathy ICD Codes: G93.40 - Encephalopathy, unspecified SNOMED: 97928430 (7) Sepsis ICD Codes: A41.9 - Sepsis, unspecified organism SNOMED: 59502088 Qualifiers: Qualified Codes: A41.9 - Sepsis, unspecified organism (8) Pneumonia ICD Codes: J18.9 - Pneumonia, unspecified organism SNOMED: 257613269 (9) Status epilepticus ICD Codes: G40.901 - Epilepsy, unspecified, not intractable, with status epilepticus SNOMED: 317565742 Status: stable, progressing Assessment/Plan: cont vent support resp rx gt feeds iv abx check stool ob and iron panel transfuse wound care sz rx dc ivf replace lytes as needed Subjective ROS Limited/Unobtainable: Yes Constitutional: Reports: malaise, weakness HEENT: Reports: no symptoms Cardiovascular: Reports: no symptoms Respiratory: Reports: no symptoms Gastrointestinal/Abdominal: Reports: no symptoms Genitourinary: Reports: no symptoms Neurologic/Psychiatric: Reports: seizure Endocrine: Reports: no symptoms Hematologic/Lymphatic: Reports: anemia Allergies: Coded Allergies: No Known Allergies (Unverified , 01/27/17) All Systems: reviewed and negative except above Subjective had single sz this am. better after receiving ativan. remains on the vent. poorly responsive at baseline. Objective Last 24 Hour Vital Signs Date Time Temp Pulse Resp B/P (MAP) Pulse Ox O2 Delivery O2 Flow Rate FiO2 01/31/19 17:13 81 23 40 01/31/19 16:00 40 01/31/19 16:00 Mechanical Ventilator 01/31/19 16:00 98.1 82 24 132/69 (90) 100 01/31/19 15:29 81 22 40 01/31/19 15:24 83 01/31/19 13:11 186 12 100 Mechanical Ventilator 40 01/31/19 13:08 83 25 40 01/31/19 13:02 83 12 100 Mechanical Ventilator 40 01/31/19 12:00 99.3 102 28 147/75 (99) 100 01/31/19 12:00 Mechanical Ventilator 01/31/19 12:00 40 01/31/19 11:49 83 01/31/19 11:19 102 30 40 01/31/19 09:56 105 145/68 01/31/19 09:55 105 145/68 01/31/19 08:59 105 13 100 Mechanical Ventilator 40 01/31/19 08:56 106 23 40 01/31/19 08:54 106 23 100 Mechanical Ventilator 40 01/31/19 08:00 40 01/31/19 08:00 Mechanical Ventilator 01/31/19 08:00 98.8 108 22 145/68 (93) 100 01/31/19 07:30 103 01/31/19 07:07 102 12 100 Mechanical Ventilator 40 01/31/19 07:04 98 27 40 01/31/19 07:00 98 12 100 Mechanical Ventilator 40 01/31/19 04:57 110 23 40 40 01/31/19 04:00 Mechanical Ventilator 01/31/19 04:00 40 01/31/19 04:00 97.6 84 28 121/78 (92) 100 01/31/19 04:00 84 01/31/19 03:35 64 01/31/19 03:10 84 18 40 40 01/31/19 01:33 83 16 100 Mechanical Ventilator 40 01/31/19 01:27 86 16 100 Mechanical Ventilator 40 01/31/19 01:26 86 16 40 40 01/31/19 00:00 76 01/31/19 00:00 98.3 76 26 119/60 (79) 100 01/31/19 00:00 Mechanical Ventilator 01/30/19 23:40 76 16 100 Mechanical Ventilator 40 01/30/19 23:29 76 17 40 40 01/30/19 23:29 76 17 100 Mechanical Ventilator 40 01/30/19 21:29 89 30 40 40 01/30/19 20:23 90 138/72 01/30/19 20:00 40 01/30/19 20:00 90 01/30/19 20:00 98.2 91 29 124/70 (88) 100 01/30/19 20:00 Mechanical Ventilator Intake and Output 01/30/19 01/31/19 18:59 06:59 Intake Total 1455 ml 2076.6 ml Output Total 800 ml Balance 655 ml 2076.6 ml Free Water 50 ml 300 ml IV Total 950 ml 1061.6 ml Tube Feeding 455 ml 715 ml Output Urine Total 800 ml # Voids 1 # Bowel Movements 2 1 Laboratory Tests 01/31/19 06:00: White Blood Count 11.8H, Red Blood Count 3.15L, Hemoglobin 8.4L, Hematocrit 27.8L, Mean Corpuscular Volume 88, Mean Corpuscular Hemoglobin 26.7L, Mean Corpuscular Hemoglobin Concent 30.2L, Red Cell Distribution Width 18.9H, Platelet Count 381, Mean Platelet Volume 4.9L, Neutrophils (%) (Auto) , Lymphocytes (%) (Auto) , Monocytes (%) (Auto) , Eosinophils (%) (Auto) , Basophils (%) (Auto) , Differential Total Cells Counted 100, Neutrophils % ( Manual) 91H, Lymphocytes % (Manual) 5L, Monocytes % (Manual) 2, Eosinophils % ( Manual) 2, Basophils % (Manual) 0, Band Neutrophils 0, Platelet Estimate Adequate, Platelet Morphology Normal, Hypochromasia 1+, Anisocytosis 1+, Sodium Level 133L, Potassium Level 5.0, Chloride Level 97L, Carbon Dioxide Level 34H, Anion Gap 2L, Blood Urea Nitrogen 27H, Creatinine 0.6, Estimat Glomerular Filtration Rate , Glucose Level 110H, Calcium Level 8.9 Height (Feet): 5 Height (Inches): 5.00 Weight (Pounds): 127 Objective General Appearance: WD/WN, confused Neck: supple Cardiovascular: normal peripheral pulses, normal rate, regular rhythm Respiratory/Chest: chest wall non-tender, lungs clear, normal breath sounds, no respiratory distress Abdomen: normal bowel sounds, non tender, soft, no organomegaly Edema: no edema noted Arm (L), no edema noted Arm (R), no edema noted Leg (L), no edema noted Leg (R), no edema noted Pedal (L), no edema noted Pedal (R), no edema noted Generalized Neurologic: disoriented, unresponsive, aphasia Jarrod Vásquez MD Jan 31, 2019 19:24
--- NOTE | 2019-01-31 19:35 | NUR ---
RESPIRATORY NOTE: Received pt. on 840 vent. Vent settings are: A/C rate of 12, Vt 500, FI02 40%, PEEP +5. No respiratory distress noted, pt. sP02 @ 100%. AMBU bag @ BS. Vent plugged on red outlet. Will continue to monitor pt.
[2019-01-31 20:00] VITALS: BP 150/77
--- NOTE | 2019-01-31 21:16 | General Progress Note ---
Assessment/Plan Status: stable, progressing Assessment/Plan: Assessment - anemia - Resp failure - cirrhotic change on imaging with negative Hep B/C markers - Elevated Alk phos - GT dependent Recommendations - continue TF - increase free water - check AFP - normal - follow Na - PPI - daily CBC - no plans for EGD per family directive Subjective Allergies: Coded Allergies: No Known Allergies (Unverified , 01/27/17) Subjective non communicative tolerating TF Objective Last 24 Hour Vital Signs Date Time Temp Pulse Resp B/P (MAP) Pulse Ox O2 Delivery O2 Flow Rate FiO2 01/31/19 20:59 71 22 40 01/31/19 20:19 85 150/77 01/31/19 20:00 40 01/31/19 20:00 97.3 84 20 150/77 (101) 100 01/31/19 20:00 Mechanical Ventilator 01/31/19 20:00 85 26 100 Mechanical Ventilator 40 01/31/19 19:34 87 22 40 01/31/19 19:32 81 21 100 Mechanical Ventilator 40 01/31/19 17:13 81 23 40 01/31/19 16:00 40 01/31/19 16:00 Mechanical Ventilator 01/31/19 16:00 98.1 82 24 132/69 (90) 100 01/31/19 15:29 81 22 40 01/31/19 15:24 83 01/31/19 13:11 186 12 100 Mechanical Ventilator 40 01/31/19 13:08 83 25 40 01/31/19 13:02 83 12 100 Mechanical Ventilator 40 01/31/19 12:00 99.3 102 28 147/75 (99) 100 01/31/19 12:00 Mechanical Ventilator 01/31/19 12:00 40 01/31/19 11:49 83 01/31/19 11:19 102 30 40 01/31/19 09:56 105 145/68 01/31/19 09:55 105 145/68 01/31/19 08:59 105 13 100 Mechanical Ventilator 40 01/31/19 08:56 106 23 40 01/31/19 08:54 106 23 100 Mechanical Ventilator 40 01/31/19 08:00 40 01/31/19 08:00 Mechanical Ventilator 01/31/19 08:00 98.8 108 22 145/68 (93) 100 01/31/19 07:30 103 01/31/19 07:07 102 12 100 Mechanical Ventilator 40 01/31/19 07:04 98 27 40 01/31/19 07:00 98 12 100 Mechanical Ventilator 40 01/31/19 04:57 110 23 40 40 01/31/19 04:00 Mechanical Ventilator 01/31/19 04:00 40 01/31/19 04:00 97.6 84 28 121/78 (92) 100 01/31/19 04:00 84 01/31/19 03:35 64 01/31/19 03:10 84 18 40 40 01/31/19 01:33 83 16 100 Mechanical Ventilator 40 01/31/19 01:27 86 16 100 Mechanical Ventilator 40 01/31/19 01:26 86 16 40 40 01/31/19 00:00 76 01/31/19 00:00 98.3 76 26 119/60 (79) 100 01/31/19 00:00 Mechanical Ventilator 01/30/19 23:40 76 16 100 Mechanical Ventilator 40 01/30/19 23:29 76 17 40 40 01/30/19 23:29 76 17 100 Mechanical Ventilator 40 01/30/19 21:29 89 30 40 40 Intake and Output 01/30/19 01/31/19 19:00 07:00 Intake Total 1620 ml 2076.6 ml Output Total 800 ml Balance 820 ml 2076.6 ml Free Water 50 ml 300 ml IV Total 1050 ml 1061.6 ml Tube Feeding 520 ml 715 ml Output Urine Total 800 ml # Voids 1 # Bowel Movements 2 1 Laboratory Tests 01/31/19 06:00: White Blood Count 11.8H, Red Blood Count 3.15L, Hemoglobin 8.4L, Hematocrit 27.8L, Mean Corpuscular Volume 88, Mean Corpuscular Hemoglobin 26.7L, Mean Corpuscular Hemoglobin Concent 30.2L, Red Cell Distribution Width 18.9H, Platelet Count 381, Mean Platelet Volume 4.9L, Neutrophils (%) (Auto) , Lymphocytes (%) (Auto) , Monocytes (%) (Auto) , Eosinophils (%) (Auto) , Basophils (%) (Auto) , Differential Total Cells Counted 100, Neutrophils % ( Manual) 91H, Lymphocytes % (Manual) 5L, Monocytes % (Manual) 2, Eosinophils % ( Manual) 2, Basophils % (Manual) 0, Band Neutrophils 0, Platelet Estimate Adequate, Platelet Morphology Normal, Hypochromasia 1+, Anisocytosis 1+, Sodium Level 133L, Potassium Level 5.0, Chloride Level 97L, Carbon Dioxide Level 34H, Anion Gap 2L, Blood Urea Nitrogen 27H, Creatinine 0.6, Estimat Glomerular Filtration Rate , Glucose Level 110H, Calcium Level 8.9 Height (Feet): 5 Height (Inches): 5.00 Weight (Pounds): 127 Objective Frail AA man NCAT (+) Trach coarse BS RR abd soft, (+) GT contracted Oli Amaya MD Jan 31, 2019 21:16
[2019-02-01] VITALS: BP 140/70
[2019-02-01] MEDS: Albuterol/Ipratropium 3ml neb HHN SCH ×4 (00:13→19:29)
--- NOTE | 2019-02-01 02:15 | Progress Note ---
DATE: 02/01/2019 SUBJECTIVE: The patient had a seizure this morning. He was given lorazepam. He remains on ventilator support and at baseline is poorly responsive. There is no visible change in that. OBJECTIVE: VITAL SIGNS: Blood pressure 132/69, pulse 82, respiratory rate 24, afebrile, T-max 99.3. LUNGS: Bilateral breath sounds. thick secretions. HEART: Regular rhythm and rate. Normal S1, S2. ABDOMEN: Soft. G-tube intact. EXTREMITIES: No edema. LABORATORY DATA: White count 11.8, hemoglobin 8.4. Sodium 133, potassium 5, bicarb 34, BUN 27, creatinine 0.6. IMPRESSION: 1. Seizure disorder. 2. Advanced dementia. 3. Respiratory failure. 4. Paroxysmal sinus tachycardia. 5. Corrected dehydration and hypernatremia, now with slight decrease in sodium. PLAN: 1. Anti-seizure precautions. 2. Adjust therapy. 3. Ventilator support. 4. Antimicrobials. 5. Adjust IV fluids. Jones Arauz M.D. DR: CLAUDIA JOB#: [id number] CC:
[2019-02-01 04:00] VITALS: BP 142/77
--- NOTE | 2019-02-01 07:05 | NUR ---
HAND-OFF: Report given to LALA Barragan.
--- NOTE | 2019-02-01 07:06 | NUR ---
NURSE NOTES: Received update bedside report from Yamileth REEVES. Pt. in bed, occasionally opens eyes. No seizure activity from previous shift. No sign of distress. On vent with settings of AC 12, VT 500, Fio2 40%, PEEP +5. Patient has a Cuffed Portex 7 tracheostomy, secured with trach ties, and is vent dependent. No grimacing noted. F/C in placed patent/intact draining yellow colored urine. GTF in placed patent/intact running Vital AF at 65cc/hr tolerating well. HOB elevated at all times at least 30-45deg. IV line at right hand #22g. in placed patent/intact. Padded side rails in placed. Bed in low position, locked. Call light within reach. Will cont. to monitor.
[2019-02-01 08:00] VITALS: BP 141/71
--- NOTE | 2019-02-01 08:59 | Infectious Diseases Prog Note ---
Assessment/Plan Assessment/Plan A 1. E.coli esbl UTI 2. Acinetobacter pneumonia 3. respiratory failure 4. pulmonary TB s/p rx 5. leucocytosis improving 7. hypertension 8. anemia 9. seizures 10. Cirrhosis P 1. continue inhaled colistin until tomorrow 2. will follow up CBC Subjective ROS Limited/Unobtainable: Yes Constitutional: Denies: fever Allergies: Coded Allergies: No Known Allergies (Unverified , 01/27/17) Objective Vital Signs Last 24 Hour Vital Signs Date Time Temp Pulse Resp B/P (MAP) Pulse Ox O2 Delivery O2 Flow Rate FiO2 02/01/19 08:00 97.3 94 17 141/71 (94) 100 02/01/19 08:00 Mechanical Ventilator 02/01/19 08:00 40 02/01/19 07:38 82 18 100 Mechanical Ventilator 40 02/01/19 07:30 79 20 100 Mechanical Ventilator 40 02/01/19 07:30 78 18 40 02/01/19 04:55 89 29 40 02/01/19 04:00 97.7 91 16 142/77 (98) 100 02/01/19 04:00 Mechanical Ventilator 02/01/19 04:00 40 02/01/19 03:33 90 02/01/19 02:56 89 26 40 02/01/19 00:24 77 17 100 Mechanical Ventilator 40 02/01/19 00:14 76 24 40 02/01/19 00:14 77 26 100 Mechanical Ventilator 40 02/01/19 00:00 Mechanical Ventilator 02/01/19 00:00 97.7 78 18 140/70 (93) 100 01/31/19 23:35 76 01/31/19 22:30 73 23 40 01/31/19 22:25 76 24 100 Mechanical Ventilator 40 01/31/19 21:55 73 23 100 Mechanical Ventilator 40 01/31/19 20:59 71 22 40 01/31/19 20:19 85 150/77 01/31/19 20:00 40 01/31/19 20:00 97.3 84 20 150/77 (101) 100 01/31/19 20:00 Mechanical Ventilator 01/31/19 20:00 85 26 100 Mechanical Ventilator 40 01/31/19 19:34 87 22 40 01/31/19 19:32 81 21 100 Mechanical Ventilator 40 01/31/19 19:10 81 01/31/19 17:13 81 23 40 01/31/19 16:00 40 01/31/19 16:00 Mechanical Ventilator 01/31/19 16:00 98.1 82 24 132/69 (90) 100 01/31/19 15:29 81 22 40 01/31/19 15:24 83 01/31/19 13:11 186 12 100 Mechanical Ventilator 40 01/31/19 13:08 83 25 40 01/31/19 13:02 83 12 100 Mechanical Ventilator 40 01/31/19 12:00 99.3 102 28 147/75 (99) 100 01/31/19 12:00 Mechanical Ventilator 01/31/19 12:00 40 01/31/19 11:49 83 01/31/19 11:19 102 30 40 01/31/19 09:56 105 145/68 01/31/19 09:55 105 145/68 01/31/19 08:59 105 13 100 Mechanical Ventilator 40 Height (Feet): 5 Height (Inches): 5.00 Weight (Pounds): 127 General Appearance: no acute distress HEENT: mucous membranes moist, status post trach Respiratory/Chest: decreased breath sounds, other - on ventilator Cardiovascular: normal rate Abdomen: soft, non tender, other - GT feeding Extremities: no edema Skin: ulcers Neurologic/Psychiatric: aphasia Musculoskeletal: atrophy Laboratory Tests Test 02/01/19 04:30 Levetiracetam (Keppra) Level Pending Current Medications Medications (Trade) Dose Ordered Sig/Iram Route PRN Reason Start Time Stop Time Status Last Admin Dose Admin Acetaminophen (Tylenol) 650 mg Q4H PRN NG fever 01/23/19 10:21 02/22/19 10:20 01/28/19 20:41 Acetaminophen/ Hydrocodone Bitart ([place] 10/325) 1 tab Q4H PRN GT For Pain 01/29/19 15:00 02/04/19 14:59 Albuterol/ Ipratropium (Albuterol/ Ipratropium) 3 ml Q6HRT HHN 01/28/19 19:00 02/02/19 18:59 02/01/19 07:34 Amlodipine Besylate (Norvasc) 5 mg DAILY ORAL 01/30/19 09:00 03/01/19 08:59 01/31/19 09:55 Ascorbic Acid (Vitamin C) 500 mg DAILY GT 01/31/19 09:00 03/02/19 08:59 01/31/19 09:56 Colistimethate Sodium (Colistin *inhalation use only*) 75 mg Q12HR@10,22 INH 01/26/19 12:00 02/02/19 11:59 01/31/19 21:55 Heparin Sodium (Porcine) (Heparin 5000 units/ml) 5,000 units EVERY 12 HOURS SUBQ 01/30/19 09:00 03/01/19 08:59 01/31/19 20:21 Lansoprazole (Prevacid) 30 mg DAILY GT 01/29/19 09:00 02/28/19 08:59 01/31/19 09:56 Levetiracetam (Keppra) 750 mg Q12HR GT 01/23/19 10:21 02/22/19 10:20 01/31/19 20:20 Lorazepam (Ativan 2mg/ml 1ml) 1 mg Q1H PRN IV For Seizures 01/31/19 05:30 02/07/19 05:29 Metoprolol Tartrate (Lopressor) 50 mg Q12HR GT 01/25/19 09:00 02/24/19 08:59 01/31/19 20:19 Multivitamins (Multivitamins) 1 tab DAILY GT 01/31/19 09:00 03/02/19 08:59 01/31/19 09:56 Sodium Hypochlorite (Dakin's Quarter Strength) 1 applic DAILY TOPIC 01/25/19 09:00 02/23/19 17:59 01/31/19 09:56 Rahul Shen MD Feb 01, 2019 08:59
[2019-02-01] MEDS: levETIRAcetam 500mg/5ml Liquid GT SCH ×2 (09:04→20:12)
[2019-02-01] MEDS: Heparin 5000 units/ml inj SUBQ SCH ×2 (09:05→20:14)
[2019-02-01] MEDS: Metoprolol Tartrate 50mg tab GT SCH ×2 (09:06→20:12)
[2019-02-01] MEDS: Dakin's 0.125% Soln (Quarter Strength) 16oz TOPIC SCH (09:06)
[2019-02-01] MEDS: Ascorbic Acid 500mg tab GT SCH (09:06)
--- NOTE | 2019-02-01 09:15 | General Progress Note ---
Assessment/Plan Problem List: (1) Decubitus ulcer ICD Codes: L89.90 - Pressure ulcer of unspecified site, unspecified stage SNOMED: 203107806 Qualifiers: Qualified Codes: L89.94 - Pressure ulcer of unspecified site, stage 4 (2) Anemia ICD Codes: D64.9 - Anemia, unspecified SNOMED: 200201909 Qualifiers: Qualified Codes: D64.9 - Anemia, unspecified (3) UTI (urinary tract infection), bacterial ICD Codes: N39.0 - Urinary tract infection, site not specified; A49.9 - Bacterial infection, unspecified SNOMED: 478946051 (4) Toxic metabolic encephalopathy ICD Codes: G92 - Toxic encephalopathy SNOMED: 607994922 (5) Aspiration pneumonia ICD Codes: J69.0 - Pneumonitis due to inhalation of food and vomit SNOMED: 842357294 (6) Encephalopathy ICD Codes: G93.40 - Encephalopathy, unspecified SNOMED: 32388410 (7) Sepsis ICD Codes: A41.9 - Sepsis, unspecified organism SNOMED: 35206972 Qualifiers: Qualified Codes: A41.9 - Sepsis, unspecified organism (8) Pneumonia ICD Codes: J18.9 - Pneumonia, unspecified organism SNOMED: 522724234 (9) Status epilepticus ICD Codes: G40.901 - Epilepsy, unspecified, not intractable, with status epilepticus SNOMED: 510798247 Status: stable, progressing Assessment/Plan: cont vent support resp rx gt feeds iv abx check stool ob and iron panel transfuse as needed wound care sz rx dc ivf check labs in the am Subjective ROS Limited/Unobtainable: Yes Constitutional: Reports: malaise, weakness HEENT: Reports: no symptoms Cardiovascular: Reports: no symptoms Respiratory: Reports: cough Gastrointestinal/Abdominal: Reports: difficulty swallowing Genitourinary: Reports: no symptoms Neurologic/Psychiatric: Reports: pre-existing deficit, seizure Endocrine: Reports: no symptoms Hematologic/Lymphatic: Reports: anemia Allergies: Coded Allergies: No Known Allergies (Unverified , 01/27/17) All Systems: reviewed and negative except above Subjective no events. remains on the vent. poorly responsive. no szs. Objective Last 24 Hour Vital Signs Date Time Temp Pulse Resp B/P (MAP) Pulse Ox O2 Delivery O2 Flow Rate FiO2 02/01/19 09:06 94 141/71 02/01/19 09:06 94 141/71 02/01/19 08:00 97.3 94 17 141/71 (94) 100 02/01/19 08:00 Mechanical Ventilator 02/01/19 08:00 40 02/01/19 07:38 82 18 100 Mechanical Ventilator 40 02/01/19 07:30 79 20 100 Mechanical Ventilator 40 02/01/19 07:30 78 18 40 02/01/19 04:55 89 29 40 02/01/19 04:00 97.7 91 16 142/77 (98) 100 02/01/19 04:00 Mechanical Ventilator 02/01/19 04:00 40 02/01/19 03:33 90 02/01/19 02:56 89 26 40 02/01/19 00:24 77 17 100 Mechanical Ventilator 40 02/01/19 00:14 76 24 40 02/01/19 00:14 77 26 100 Mechanical Ventilator 40 02/01/19 00:00 Mechanical Ventilator 02/01/19 00:00 97.7 78 18 140/70 (93) 100 01/31/19 23:35 76 01/31/19 22:30 73 23 40 01/31/19 22:25 76 24 100 Mechanical Ventilator 40 01/31/19 21:55 73 23 100 Mechanical Ventilator 40 01/31/19 20:59 71 22 40 01/31/19 20:19 85 150/77 01/31/19 20:00 40 01/31/19 20:00 97.3 84 20 150/77 (101) 100 01/31/19 20:00 Mechanical Ventilator 01/31/19 20:00 85 26 100 Mechanical Ventilator 40 01/31/19 19:34 87 22 40 01/31/19 19:32 81 21 100 Mechanical Ventilator 40 01/31/19 19:10 81 01/31/19 17:13 81 23 40 01/31/19 16:00 40 01/31/19 16:00 Mechanical Ventilator 01/31/19 16:00 98.1 82 24 132/69 (90) 100 01/31/19 15:29 81 22 40 01/31/19 15:24 83 01/31/19 13:11 186 12 100 Mechanical Ventilator 40 01/31/19 13:08 83 25 40 01/31/19 13:02 83 12 100 Mechanical Ventilator 40 01/31/19 12:00 99.3 102 28 147/75 (99) 100 01/31/19 12:00 Mechanical Ventilator 01/31/19 12:00 40 01/31/19 11:49 83 01/31/19 11:19 102 30 40 01/31/19 09:56 105 145/68 01/31/19 09:55 105 145/68 Intake and Output 01/31/19 02/01/19 19:00 07:00 Intake Total 2030 ml 1080 ml Output Total 1400 ml 1200 ml Balance 630 ml -120 ml Free Water 150 ml 300 ml IV Total 1100 ml Tube Feeding 780 ml 780 ml Output Urine Total 1400 ml 1200 ml Laboratory Tests 02/01/19 04:30: Levetiracetam (Keppra) Level [Pending] Height (Feet): 5 Height (Inches): 5.00 Weight (Pounds): 127 Objective General Appearance: WD/WN, confused Neck: supple Cardiovascular: normal peripheral pulses, normal rate, regular rhythm Respiratory/Chest: chest wall non-tender, lungs clear, normal breath sounds, no respiratory distress Abdomen: normal bowel sounds, non tender, soft, no organomegaly Edema: no edema noted Arm (L), no edema noted Arm (R), no edema noted Leg (L), no edema noted Leg (R), no edema noted Pedal (L), no edema noted Pedal (R), no edema noted Generalized Neurologic: disoriented, unresponsive, aphasia Jarrod Vásquez MD Feb 01, 2019 09:15
[2019-02-01] MEDS: Colistin for inhalation INH SCH ×2 (10:37→22:17)
[2019-02-01 12:00] VITALS: BP 138/65
--- NOTE | 2019-02-01 12:36 | Surgery Progress Note ---
Surgery Progress Note Subjective Additional Comments no acute events Objective Last 24 Hour Vital Signs Date Time Temp Pulse Resp B/P (MAP) Pulse Ox O2 Delivery O2 Flow Rate FiO2 02/01/19 12:00 Mechanical Ventilator 02/01/19 12:00 98.2 87 21 138/65 (89) 100 02/01/19 12:00 40 02/01/19 10:47 78 20 100 Mechanical Ventilator 40 02/01/19 10:37 79 19 40 02/01/19 10:37 79 19 100 Mechanical Ventilator 40 02/01/19 09:06 94 141/71 02/01/19 09:06 94 141/71 02/01/19 09:00 82 18 40 02/01/19 08:00 97.3 94 17 141/71 (94) 100 02/01/19 08:00 Mechanical Ventilator 02/01/19 08:00 40 02/01/19 07:42 94 02/01/19 07:38 82 18 100 Mechanical Ventilator 40 02/01/19 07:30 79 20 100 Mechanical Ventilator 40 02/01/19 07:30 78 18 40 02/01/19 04:55 89 29 40 02/01/19 04:00 97.7 91 16 142/77 (98) 100 02/01/19 04:00 Mechanical Ventilator 02/01/19 04:00 40 02/01/19 03:33 90 02/01/19 02:56 89 26 40 02/01/19 00:24 77 17 100 Mechanical Ventilator 40 02/01/19 00:14 76 24 40 02/01/19 00:14 77 26 100 Mechanical Ventilator 40 02/01/19 00:00 Mechanical Ventilator 02/01/19 00:00 97.7 78 18 140/70 (93) 100 01/31/19 23:35 76 01/31/19 22:30 73 23 40 01/31/19 22:25 76 24 100 Mechanical Ventilator 40 01/31/19 21:55 73 23 100 Mechanical Ventilator 40 01/31/19 20:59 71 22 40 01/31/19 20:19 85 150/77 01/31/19 20:00 40 01/31/19 20:00 97.3 84 20 150/77 (101) 100 01/31/19 20:00 Mechanical Ventilator 01/31/19 20:00 85 26 100 Mechanical Ventilator 40 01/31/19 19:34 87 22 40 01/31/19 19:32 81 21 100 Mechanical Ventilator 40 01/31/19 19:10 81 01/31/19 17:13 81 23 40 01/31/19 16:00 40 01/31/19 16:00 Mechanical Ventilator 01/31/19 16:00 98.1 82 24 132/69 (90) 100 01/31/19 15:29 81 22 40 01/31/19 15:24 83 01/31/19 13:11 186 12 100 Mechanical Ventilator 40 01/31/19 13:08 83 25 40 01/31/19 13:02 83 12 100 Mechanical Ventilator 40 I&O Intake and Output 01/31/19 02/01/19 19:00 07:00 Intake Total 2030 ml 1080 ml Output Total 1400 ml 1200 ml Balance 630 ml -120 ml Free Water 150 ml 300 ml IV Total 1100 ml Tube Feeding 780 ml 780 ml Output Urine Total 1400 ml 1200 ml Dressing: other Wound: other Drains: other Cardiovascular: RSR Respiratory: decreased breath sounds Abdomen: soft, present bowel sounds, non-distended Extremities: other Laboratory Tests Test 02/01/19 04:30 Levetiracetam (Keppra) Level Pending Plan Problems: (1) HCAP (healthcare-associated pneumonia) (2) Decubitus ulcer Assessment & Plan: Pt presented on admission with multiple pressure injuries. Resolving pressure injury L occipital. Dry pink epithelial noted. Skin assessed under trach collar and no areas of concerns noted . R and L ears dry . Full thickness pressure injury with undermining thoracic spine . Base of wound 75% granular with 25% fibrinous slough. Mild odor noted.(L)8.5cm x (W)6.5cmx(D) 1cm, undermining clockwise 6-1 by 3cm @12o'clock. Full thickness pressure injury L trochanter. 100% mixed necrosis/slough at base of wound and undermined borders.Non-blanchable erythema with induration noted periwound. Mild odor noted .(L)3.5cm x (W)4.5cm. Resolving DTPI L ischium .Centrally wound is red and fluctuant .Bone is palpable. Black with red tinged indurated borders noted. (L) (L)4.4cm x (W) 3.2cm. Ful thickness pressure injury R Iliac with 10% velazquez slough centrally.90% granular.Edges adherent and flat. (L)3cm x (W)3.2cm x(D)0.2cm. No odor or exudate noted.Darker skin tone without fluctuance noted periwound. Full thickness pressure injury with undermining R trochanter. Base of wound 60^ beefy red with 40% velazquez slough.erythejma noted along borders. Small amt seropurulent exudate that is mildly odorous.(L)5.5cm x (W)6.6cm x (D)1.5cm, undermining clockwise 12-12 by 4.5cm @3o'clock. Full thickness pressure injury R ischium (L)4.2cm x (W)5.5cm x(D)1.6cm, undermining 12-12 by 1.8cm @12o'clock .Base of wound 60% granular ,40% velazquez slough undermined borders.Wound has mild odor with small amt seropurulent exudate.darker skin tone that is indurated periwound. Resolving pressure injury sacrum . Base of wound dry with pink epithelial.with scattered shearing within base of wound. L heel boggy with non-blanchable erythema. DTPI R heel and Lateral aspect .Base of wound is maroon with fluctuance. (L) 4.5cm x (W)7.3cm. Tx.Plan. Cleanse wounds Thoracic and lumbar spine with Dakin's 0.125% segun. Pack with Dakin's moist gauze. Apply Moisture Barrier Paste periwound. Cover each wound with Optifoam drsg.Twice Daily and prn. Cleanse wound L trochanter and L ischium with Dakin's 0.125% segun. Pack with Dakin's moist Gauze.Apply Moisture Barrier paste periwound. Cover with Optifoam drsg. Twice daily and prn. Cleanse wounds R iliac ,R trochanter,R ischium with Dakin's 0.125% segun. Pack with Dakin's moist gauze. Apply Moisture Barrier Paste periwound. Cover with Optifoam drsg Twice daily and prn. Apply Moisture Barrier paste to sacrum. Cover with Optifoam drsg. Change every 3 days and prn. Apply Cavilon Skin Barrier to Both heels. Cover each heel with Optifoam drsg. Change every 7 days and prn. Air Fluidized Mattress. Reposition at least every 2hours or as tolerated. Off-load heels with pillow. Spoke with family. I explained to them that his condition has been deteriorating for some time now. i have seen him in the past and during each admission his wounds are deteriorating despite best efforts at care. He has received adequate nutritional support/supplementation, adequate wound care, and appropriate prevention while in hospital during each admission but wounds continue to deteriorate. they expressed understanding. cont with current care plan (3) Anemia (4) UTI (urinary tract infection), bacterial (5) Toxic metabolic encephalopathy (6) Dementia (7) Dyspnea (8) Respiratory distress (9) Hyperlipidemia (10) Aspiration pneumonia (11) Aspiration pneumonia (12) Vitamin B 12 deficiency Assessment & Plan: DAILY ESTIMATED NEEDS: Needs based on Underweight, TF CHALK TESTER, Cachetic, Critical care, wounds/49.5kg 30-40 kcals/kg 9288-4145 total kcals 1.5-2 g protein/kg 74-99 g total protein 25-30 mL/kg 1543-2773 total fluid mLs NUTRITION DIAGNOSIS: 1) Swallowing difficulty r/t dysphagia, respiratory status as evidenced by pt is PEG dep, trach/vent dep. . 2) Increased kcal/prot needs R/T underweight status w/ wasting, and wound healing as evidenced by low BMI under guidelines, noted w/ severe generalized wasting, pt w/ multiple advanced wounds, pending eval ENTERAL NUTRITION RECOMMENDATIONS: Vital AF 1.2 @ 65ml/hr x 24 hrs to provide 1560ml, 1872kcal, 117g prot, 1265ml free water - Maintain Vital AF 1.2 @ 65ml/hr as tolerated - Meets 100% est kcal and protein needs. - HOB over 30 degrees/ water flush per MD ADDITIONAL RECOMMENDATIONS: 1) WOUND HEALING: add Vit C 500mg BID, Edgard 1pkt BID 2) RECALIBRATE BED SCALE FOR ACCURATE CBW + weekly wt monitoring given underweight status 3) Check lytes daily, replete as needed - (Low K, mg) 4) Continue to maintain calibrated bed scale wts (13) Encephalopathy (14) Sepsis Assessment & Plan: Leukocytosis improved cont with IV fluids Cont with IV abx as per ID CXR noted labs noted Thank you for this consultation we will follow with recommendations (15) Pneumonia (16) Status epilepticus (17) HTN (hypertension) (18) Encephalopathy acute (19) BPH (benign prostatic hyperplasia) (20) Abnormal LFTs (21) Probable sepsis (2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 (23) Zev Mchugh Feb 01, 2019 12:36
--- NOTE | 2019-02-01 15:49 | General Progress Note ---
Assessment/Plan Status: stable, progressing Assessment/Plan: Assessment - anemia - Resp failure - cirrhotic change on imaging with negative Hep B/C markers - Elevated Alk phos - GT dependent Recommendations - continue TF - increase free water - check AFP - normal - follow Na - PPI - daily CBC - no plans for EGD per family directive Subjective Allergies: Coded Allergies: No Known Allergies (Unverified , 01/27/17) Subjective non communicative tolerating TF Objective Last 24 Hour Vital Signs Date Time Temp Pulse Resp B/P (MAP) Pulse Ox O2 Delivery O2 Flow Rate FiO2 02/01/19 15:25 103 32 40 02/01/19 13:03 80 18 100 Mechanical Ventilator 40 02/01/19 12:55 80 16 40 02/01/19 12:55 82 20 100 Mechanical Ventilator 40 02/01/19 12:00 Mechanical Ventilator 02/01/19 12:00 98.2 87 21 138/65 (89) 100 02/01/19 12:00 40 02/01/19 11:40 85 02/01/19 10:47 78 20 100 Mechanical Ventilator 40 02/01/19 10:37 79 19 40 02/01/19 10:37 79 19 100 Mechanical Ventilator 40 02/01/19 09:06 94 141/71 02/01/19 09:06 94 141/71 02/01/19 09:00 82 18 40 02/01/19 08:00 97.3 94 17 141/71 (94) 100 02/01/19 08:00 Mechanical Ventilator 02/01/19 08:00 40 02/01/19 07:42 94 02/01/19 07:38 82 18 100 Mechanical Ventilator 40 02/01/19 07:30 79 20 100 Mechanical Ventilator 40 02/01/19 07:30 78 18 40 02/01/19 04:55 89 29 40 02/01/19 04:00 97.7 91 16 142/77 (98) 100 02/01/19 04:00 Mechanical Ventilator 02/01/19 04:00 40 02/01/19 03:33 90 02/01/19 02:56 89 26 40 02/01/19 00:24 77 17 100 Mechanical Ventilator 40 02/01/19 00:14 76 24 40 02/01/19 00:14 77 26 100 Mechanical Ventilator 40 02/01/19 00:00 Mechanical Ventilator 02/01/19 00:00 97.7 78 18 140/70 (93) 100 01/31/19 23:35 76 01/31/19 22:30 73 23 40 01/31/19 22:25 76 24 100 Mechanical Ventilator 40 01/31/19 21:55 73 23 100 Mechanical Ventilator 40 01/31/19 20:59 71 22 40 01/31/19 20:19 85 150/77 01/31/19 20:00 40 01/31/19 20:00 97.3 84 20 150/77 (101) 100 01/31/19 20:00 Mechanical Ventilator 01/31/19 20:00 85 26 100 Mechanical Ventilator 40 01/31/19 19:34 87 22 40 01/31/19 19:32 81 21 100 Mechanical Ventilator 40 01/31/19 19:10 81 01/31/19 17:13 81 23 40 01/31/19 16:00 40 01/31/19 16:00 Mechanical Ventilator 01/31/19 16:00 98.1 82 24 132/69 (90) 100 Intake and Output 01/31/19 02/01/19 19:00 07:00 Intake Total 2030 ml 1080 ml Output Total 1400 ml 1200 ml Balance 630 ml -120 ml Free Water 150 ml 300 ml IV Total 1100 ml Tube Feeding 780 ml 780 ml Output Urine Total 1400 ml 1200 ml Laboratory Tests 02/01/19 04:30: Levetiracetam (Keppra) Level [Pending] Height (Feet): 5 Height (Inches): 5.00 Weight (Pounds): 127 Objective Frail AA man NCAT (+) Trach coarse BS RR abd soft, (+) GT contracted Oli Amaya MD Feb 01, 2019 15:49
[2019-02-01 16:00] VITALS: BP 139/73
--- NOTE | 2019-02-01 19:14 | NUR ---
HAND-OFF: Report given to Yamileth REEVES. Pt. remain stable.
--- NOTE | 2019-02-01 19:15 | NUR ---
NURSE NOTES: Received patient from LALA Barragan. Will continue plan of care.
[2019-02-01 20:00] VITALS: BP 146/77
--- NOTE | 2019-02-01 20:36 | Pulmonology Progress Note ---
Assessment/Plan Assessment/Plan Pulmonary CCM Progress Note Assessment/Plan ASSESSMENT: toxic metabolic encephalopathy, history of stroke, chronic respiratory failure, hyponatremia, acute on chronic renal failure, chronic encephalopathy, seizure disorder, pulmonary tuberculosis, and anemia possible sepsis, leukocytosis H/H stable PLAN care noted TB meds TFN PRN IV antibiotics respiratory care Ventilatory support- no wean SNF meds noted supportive care as is suction as needed oxygen therapy nursing notes reviewed care noted and discussed prognosis poor overall all cultures and supply chain consultant notes reviewed impression, plan, and exam edited and reviewed in detail care discussed with RN Subjective ROS Limited/Unobtainable: Yes Allergies: Coded Allergies: No Known Allergies Subjective on vent poor loc Objective Vital Signs Noted Objective GENERAL APPEARANCE: The patient is a chronically ill-appearing male, in no apparent distress. unresponsive. NECK: Supple. Trach site is clean, dry, and intact. CARDS: RRR without MRG LUNGS: occasional rhonchi. moderate air entry; no wheeze ABDOMEN: Soft, nontender, and nondistended. GT EXTREMITIES: No clubbing or cyanosis. reduced skin turgor multiple decubitus NEURO: obtunded Laboratory Tests 01/26/19 03:00: White Blood Count 15.1H, Red Blood Count 2.58L, Hemoglobin 6.8*L, Hematocrit 22.1L, Mean Corpuscular Volume 86, Mean Corpuscular Hemoglobin 26.2L, Mean Corpuscular Hemoglobin Concent 30.5L, Red Cell Distribution Width 21.2H, Platelet Count 287, Mean Platelet Volume 4.3L, Neutrophils (%) (Auto) , Lymphocytes (%) (Auto) , Monocytes (%) (Auto) , Eosinophils (%) (Auto) , Basophils (%) (Auto) , Neutrophils % (Manual) [Pending], Lymphocytes % (Manual) [Pending], Platelet Estimate [Pending], Platelet Morphology [Pending], Vancomycin Level Trough 10.2 Current Medications Medications (Trade) Dose Ordered Sig/Iram Route PRN Reason Start Time Stop Time Status Last Admin Dose Admin Acetaminophen (Tylenol) 650 mg Q4H PRN NG fever 01/23/19 10:21 02/22/19 10:20 01/25/19 08:14 Acetaminophen/ Hydrocodone Bitart (Patten 10/325) 1 tab Q4H PRN ORAL For Pain 01/23/19 15:45 01/30/19 15:44 01/26/19 01:45 Albuterol/ Ipratropium (Albuterol/ Ipratropium) 3 ml Q6HRT HHN 01/23/19 13:00 01/28/19 12:59 01/26/19 07:34 Ascorbic Acid (Vitamin C) 500 mg BID GT 01/23/19 11:00 02/22/19 10:59 01/25/19 17:02 Famotidine (Pepcid) 20 mg BID GT 01/23/19 10:21 02/22/19 10:20 01/25/19 17:02 Heparin Sodium (Porcine) (Heparin 5000 units/ml) 5,000 units EVERY 12 HOURS SUBQ 01/23/19 21:00 02/22/19 20:59 01/25/19 21:06 Levetiracetam (Keppra) 750 mg Q12HR GT 01/23/19 10:21 02/22/19 10:20 01/25/19 21:07 Metoprolol Tartrate (Lopressor) 50 mg Q12HR GT 01/25/19 09:00 02/24/19 08:59 01/25/19 21:06 Piperacillin Sod/ Tazobactam Sod 3.375 gm/Sodium Chloride 110 ml @ 27.5 mls/hr EVERY 8 HOURS IVPB 01/23/19 06:00 01/28/19 05:59 01/26/19 05:14 Sodium Hypochlorite (Dakin's Quarter Strength) 1 applic DAILY TOPIC 01/25/19 09:00 02/23/19 17:59 01/25/19 08:14 Sodium Chloride 1,000 ml @ 75 mls/hr [id number] IV 01/26/19 02:45 02/25/19 02:44 01/26/19 03:02 Vancomycin HCl (Vanco rx to dose) 1 ea DAILY PRN MISC Per rx protocol 01/23/19 02:45 02/22/19 02:44 Vancomycin HCl 1.25 gm/Dextrose 275 ml @ 183.333 mls/hr Q24H IVPB 01/26/19 06:00 01/31/19 05:59 01/26/19 05:14 Subjective ROS Limited/Unobtainable: No Allergies: Coded Allergies: No Known Allergies (Unverified , 01/27/17) Objective Last 24 Hour Vital Signs Date Time Temp Pulse Resp B/P (MAP) Pulse Ox O2 Delivery O2 Flow Rate FiO2 02/01/19 20:12 104 146/77 02/01/19 20:00 97.9 104 20 146/77 (100) 100 02/01/19 19:31 105 30 100 Mechanical Ventilator 40 02/01/19 19:30 103 31 40 02/01/19 19:19 103 31 100 Mechanical Ventilator 40 02/01/19 16:45 97 28 40 02/01/19 16:00 Mechanical Ventilator 02/01/19 16:00 98.2 105 21 139/73 (95) 100 02/01/19 16:00 40 02/01/19 15:25 103 32 40 02/01/19 15:10 105 02/01/19 13:03 80 18 100 Mechanical Ventilator 40 02/01/19 12:55 80 16 40 02/01/19 12:55 82 20 100 Mechanical Ventilator 40 02/01/19 12:00 Mechanical Ventilator 02/01/19 12:00 98.2 87 21 138/65 (89) 100 02/01/19 12:00 40 02/01/19 11:40 85 02/01/19 10:47 78 20 100 Mechanical Ventilator 40 02/01/19 10:37 79 19 40 02/01/19 10:37 79 19 100 Mechanical Ventilator 40 02/01/19 09:06 94 141/71 02/01/19 09:06 94 141/71 02/01/19 09:00 82 18 40 02/01/19 08:00 97.3 94 17 141/71 (94) 100 02/01/19 08:00 Mechanical Ventilator 02/01/19 08:00 40 02/01/19 07:42 94 02/01/19 07:38 82 18 100 Mechanical Ventilator 40 02/01/19 07:30 79 20 100 Mechanical Ventilator 40 02/01/19 07:30 78 18 40 02/01/19 04:55 89 29 40 02/01/19 04:00 97.7 91 16 142/77 (98) 100 02/01/19 04:00 Mechanical Ventilator 02/01/19 04:00 40 02/01/19 03:33 90 02/01/19 02:56 89 26 40 02/01/19 00:24 77 17 100 Mechanical Ventilator 40 02/01/19 00:14 76 24 40 02/01/19 00:14 77 26 100 Mechanical Ventilator 40 02/01/19 00:00 Mechanical Ventilator 02/01/19 00:00 97.7 78 18 140/70 (93) 100 01/31/19 23:35 76 01/31/19 22:30 73 23 40 01/31/19 22:25 76 24 100 Mechanical Ventilator 40 01/31/19 21:55 73 23 100 Mechanical Ventilator 40 01/31/19 20:59 71 22 40 Intake and Output 01/31/19 02/01/19 18:59 06:59 Intake Total 2130 ml 1080 ml Output Total 1400 ml 1200 ml Balance 730 ml -120 ml Free Water 150 ml 300 ml IV Total 1200 ml Tube Feeding 780 ml 780 ml Output Urine Total 1400 ml 1200 ml Laboratory Tests 02/01/19 04:30: Levetiracetam (Keppra) Level [Pending] Current Medications Medications (Trade) Dose Ordered Sig/Iram Route PRN Reason Start Time Stop Time Status Last Admin Dose Admin Acetaminophen (Tylenol) 650 mg Q4H PRN NG fever 01/23/19 10:21 02/22/19 10:20 01/28/19 20:41 Acetaminophen/ Hydrocodone Bitart (Patten 10/325) 1 tab Q4H PRN GT For Pain 01/29/19 15:00 02/04/19 14:59 Albuterol/ Ipratropium (Albuterol/ Ipratropium) 3 ml Q6HRT HHN 01/28/19 19:00 02/02/19 18:59 02/01/19 19:29 Amlodipine Besylate (Norvasc) 5 mg DAILY ORAL 01/30/19 09:00 03/01/19 08:59 02/01/19 09:06 Ascorbic Acid (Vitamin C) 500 mg DAILY GT 01/31/19 09:00 03/02/19 08:59 02/01/19 09:06 Colistimethate Sodium (Colistin *inhalation use only*) 75 mg Q12HR@10,22 INH 01/26/19 12:00 02/02/19 11:59 02/01/19 10:37 Heparin Sodium (Porcine) (Heparin 5000 units/ml) 5,000 units EVERY 12 HOURS SUBQ 01/30/19 09:00 03/01/19 08:59 02/01/19 20:14 Lansoprazole (Prevacid) 30 mg DAILY GT 01/29/19 09:00 02/28/19 08:59 02/01/19 09:06 Levetiracetam (Keppra) 750 mg Q12HR GT 01/23/19 10:21 02/22/19 10:20 02/01/19 20:12 Lorazepam (Ativan 2mg/ml 1ml) 1 mg Q1H PRN IV For Seizures 01/31/19 05:30 02/07/19 05:29 Metoprolol Tartrate (Lopressor) 50 mg Q12HR GT 01/25/19 09:00 02/24/19 08:59 02/01/19 20:12 Multivitamins (Multivitamins) 1 tab DAILY GT 01/31/19 09:00 03/02/19 08:59 02/01/19 09:06 Sodium Hypochlorite (Dakin's Quarter Strength) 1 applic DAILY TOPIC 01/25/19 09:00 02/23/19 17:59 02/01/19 09:06 Jones Rasmussen MD Feb 01, 2019 20:36
[2019-02-02] VITALS: BP 133/71
[2019-02-02] MEDS: Albuterol/Ipratropium 3ml neb HHN SCH ×3 (01:37→12:33)
--- NOTE | 2019-02-02 02:00 | Progress Note ---
DATE: 02/01/2019 CARDIOLOGY PROGRESS NOTE SUBJECTIVE: The patient has no new seizures yet since yesterday. He remains at baseline, poorly responsive state, on ventilator support. OBJECTIVE: VITAL SIGNS: Blood pressure 141/71, pulse 94, respiratory rate 17. LUNGS: With diminished breath sounds. CARDIAC: Regular rhythm and rate. Normal S1, S2. ABDOMEN: Soft. G-tube intact. EXTREMITIES: No edema. LABORATORY DATA: No new laboratory studies today. IMPRESSION: 1. Seizure disorder. 2. Healthcare-acquired pneumonia. 3. Respiratory failure. 4. Severe protein-calorie malnutrition. 5. Acute on chronic diastolic congestive heart failure. 6. Dehydration. 7. Hypernatremia. 8. Paroxysmal sinus tachycardia. 9. Anemia, multifactorial. PLAN: 1. Ventilator support, non-weanable. 2. Adjust fluid replacement based on clinical parameters. 3. Antimicrobials. 4. Continue beta-cr therapy. 5. Anti-seizure medications. 6. Nutrition by feeding tube. 7. Transfuse based on clinical parameters. 8. Conservative management. Jones Arauz M.D. DR: Shabbir JOB#: [id number] CC:
[2019-02-02 04:00] VITALS: BP 140/75
[2019-02-02 07:01] LABS: BASOPHILS % (AUTO) 0.5 % (0.0-2.0); EOSINOPHILS % (AUTO) 6.1 % (0.0-3.0); HEMATOCRIT 27.6 % (42.0-52.0); HEMOGLOBIN 8.6 G/DL (14.2-18.0); MEAN CORPUSCULAR VOLUME 87 FL (80-99); MONOCYTES % (AUTO) 9.4 % (1.0-10.0); PLATELET COUNT 429 K/UL (150-450); RED BLOOD COUNT 3.17 M/UL (4.70-6.10); WHITE BLOOD COUNT 10.1 K/UL (4.8-10.8)
--- NOTE | 2019-02-02 07:08 | NUR ---
NURSE NOTES: RECEIVED BED SIDE REPORT FROM JAYDEN LUBRICATION SERVICER OF NOC SHIFT. RECEIVED PT WITH HOB ELEVATED 45 DEGREE OBTUNDED ,TRACH TO VENT ,TOLERATING WELL CURRENTS VENT SETTINGS.RENDERED TRACH CARE AND ORAL HYGIENE,MOD AMT OF WHITE TICK SECRETIONS NOTED.PT RECEIVING VITAL AF 1.2 @ 65CC/HRS VIA GTF,TOLERATING ,NO RESIDUAL NOTED AT THIS TIME.PT REPOSITIONED Q 2HRS TO PROVIDE COMFORT AND TO PREVENT FURTHER SKIN BRAKE DOWN. FULL BODY ASSESSMENT DONE.DR OLIVA CAME TO SEE THE PT THIS AM. NO ACUTE DISTRESS NOTED AT THIS TIME.WILL CONT TO MONITOR.
--- NOTE | 2019-02-02 07:16 | NUR ---
RESPIRATORY NOTE: received pt, trach on vent with trach size portex 7, midline and patent. no signs of resp distress at this time. trach is secured via trach tie/guard. no redness or skin tears visible around stoma or neck. vent alarms are on and audible with ambu bag at bedside. will cont to monitor.
[2019-02-02 08:00] VITALS: BP 145/79
--- NOTE | 2019-02-02 08:10 | General Progress Note ---
Assessment/Plan Problem List: (1) Decubitus ulcer ICD Codes: L89.90 - Pressure ulcer of unspecified site, unspecified stage SNOMED: 608810470 Qualifiers: Qualified Codes: L89.94 - Pressure ulcer of unspecified site, stage 4 (2) Anemia ICD Codes: D64.9 - Anemia, unspecified SNOMED: 635372393 Qualifiers: Qualified Codes: D64.9 - Anemia, unspecified (3) UTI (urinary tract infection), bacterial ICD Codes: N39.0 - Urinary tract infection, site not specified; A49.9 - Bacterial infection, unspecified SNOMED: 319465291 (4) Toxic metabolic encephalopathy ICD Codes: G92 - Toxic encephalopathy SNOMED: 004262051 (5) Aspiration pneumonia ICD Codes: J69.0 - Pneumonitis due to inhalation of food and vomit SNOMED: 752972780 (6) Encephalopathy ICD Codes: G93.40 - Encephalopathy, unspecified SNOMED: 68718246 (7) Sepsis ICD Codes: A41.9 - Sepsis, unspecified organism SNOMED: 07833948 Qualifiers: Qualified Codes: A41.9 - Sepsis, unspecified organism (8) Pneumonia ICD Codes: J18.9 - Pneumonia, unspecified organism SNOMED: 061494901 (9) Status epilepticus ICD Codes: G40.901 - Epilepsy, unspecified, not intractable, with status epilepticus SNOMED: 136166463 Status: stable, progressing Assessment/Plan: cont vent support resp rx gt feeds iv abx check stool ob and iron panel transfuse as needed wound care sz rx dc ivf follow up labs dc planning Subjective ROS Limited/Unobtainable: Yes Constitutional: Reports: malaise, weakness HEENT: Reports: no symptoms Cardiovascular: Reports: no symptoms Respiratory: Reports: shortness of breath Gastrointestinal/Abdominal: Reports: difficulty swallowing Genitourinary: Reports: no symptoms Neurologic/Psychiatric: Reports: pre-existing deficit, seizure Endocrine: Reports: no symptoms Hematologic/Lymphatic: Reports: no symptoms Allergies: Coded Allergies: No Known Allergies (Unverified , 01/27/17) All Systems: reviewed and negative except above Subjective no events. remains on the vent. poorly responsive. no szs. Objective Last 24 Hour Vital Signs Date Time Temp Pulse Resp B/P (MAP) Pulse Ox O2 Delivery O2 Flow Rate FiO2 02/02/19 07:19 97 13 100 Mechanical Ventilator 40 02/02/19 07:14 99 22 100 Mechanical Ventilator 40 02/02/19 07:14 98 22 40 02/02/19 05:05 98 24 40 02/02/19 04:00 98.2 99 16 140/75 (96) 100 02/02/19 04:00 40 02/02/19 04:00 Mechanical Ventilator 02/02/19 03:30 97 22 40 02/02/19 03:26 97 02/02/19 01:40 92 29 100 Mechanical Ventilator 40 02/02/19 01:30 84 29 100 Mechanical Ventilator 40 02/02/19 01:30 89 25 40 02/02/19 00:00 98.1 87 20 133/71 (91) 100 02/02/19 00:00 Mechanical Ventilator 02/02/19 00:00 86 02/01/19 22:44 86 30 40 02/01/19 22:35 88 26 100 Mechanical Ventilator 40 02/01/19 22:20 84 24 99 Mechanical Ventilator 40 02/01/19 21:30 84 24 40 02/01/19 20:12 104 146/77 02/01/19 20:00 40 02/01/19 20:00 Mechanical Ventilator 02/01/19 20:00 97.9 104 20 146/77 (100) 100 02/01/19 19:31 105 30 100 Mechanical Ventilator 40 02/01/19 19:30 103 31 40 02/01/19 19:29 102 02/01/19 19:19 103 31 100 Mechanical Ventilator 40 02/01/19 16:45 97 28 40 02/01/19 16:00 Mechanical Ventilator 02/01/19 16:00 98.2 105 21 139/73 (95) 100 02/01/19 16:00 40 02/01/19 15:25 103 32 40 02/01/19 15:10 105 02/01/19 13:03 80 18 100 Mechanical Ventilator 40 02/01/19 12:55 80 16 40 02/01/19 12:55 82 20 100 Mechanical Ventilator 40 02/01/19 12:00 Mechanical Ventilator 02/01/19 12:00 98.2 87 21 138/65 (89) 100 02/01/19 12:00 40 02/01/19 11:40 85 02/01/19 10:47 78 20 100 Mechanical Ventilator 40 02/01/19 10:37 79 19 40 02/01/19 10:37 79 19 100 Mechanical Ventilator 40 02/01/19 09:06 94 141/71 02/01/19 09:06 94 141/71 02/01/19 09:00 82 18 40 Intake and Output 02/01/19 02/02/19 19:00 07:00 Intake Total 980 ml 1030 ml Output Total 1000 ml 700 ml Balance -20 ml 330 ml Free Water 200 ml 200 ml Tube Feeding 780 ml 780 ml Other 50 ml Output Urine Total 1000 ml 700 ml Laboratory Tests 02/02/19 05:10: White Blood Count 10.1, Red Blood Count 3.17L, Hemoglobin 8.6L, Hematocrit 27.6L , Mean Corpuscular Volume 87, Mean Corpuscular Hemoglobin 27.3, Mean Corpuscular Hemoglobin Concent 31.3L, Red Cell Distribution Width 19.0H, Platelet Count 429, Mean Platelet Volume 4.8L, Neutrophils (%) (Auto) 75.0, Lymphocytes (%) (Auto) 9.0L, Monocytes (%) (Auto) 9.4, Eosinophils (%) (Auto) 6.1H, Basophils (%) (Auto) 0.5 Height (Feet): 5 Height (Inches): 5.00 Weight (Pounds): 127 Objective General Appearance: WD/WN, confused Neck: supple Cardiovascular: normal peripheral pulses, normal rate, regular rhythm Respiratory/Chest: chest wall non-tender, lungs clear, normal breath sounds, no respiratory distress Abdomen: normal bowel sounds, non tender, soft, no organomegaly Edema: no edema noted Arm (L), no edema noted Arm (R), no edema noted Leg (L), no edema noted Leg (R), no edema noted Pedal (L), no edema noted Pedal (R), no edema noted Generalized Neurologic: disoriented, unresponsive, aphasia Jarrod Vásquez MD Feb 02, 2019 08:10
[2019-02-02] MEDS: Ascorbic Acid 500mg tab GT SCH (10:01)
[2019-02-02] MEDS: levETIRAcetam 500mg/5ml Liquid GT SCH ×2 (10:03→20:46)
[2019-02-02] MEDS: Metoprolol Tartrate 50mg tab GT SCH ×2 (10:03→20:47)
[2019-02-02] MEDS: Dakin's 0.125% Soln (Quarter Strength) 16oz TOPIC SCH (10:06)
[2019-02-02] MEDS: Heparin 5000 units/ml inj SUBQ SCH ×2 (10:09→20:44)
[2019-02-02] MEDS: Colistin for inhalation INH SCH (10:12)
--- NOTE | 2019-02-02 10:27 | Pulmonology Progress Note ---
Assessment/Plan Assessment/Plan ASSESSMENT: toxic metabolic encephalopathy, history of stroke, chronic respiratory failure, hyponatremia, acute on chronic renal failure, chronic encephalopathy, seizure disorder, pulmonary tuberculosis, and anemia possible sepsis, leukocytosis PLAN care noted TB meds ongoing x 6 months IV antibiotics- noted- reviewed cultures respiratory care Ventilatory support- no wean SNF meds monitor HH supportive care as is- monitor PIP suction as needed oxygen therapy nursing notes reviewed dc once stable care noted and discussed prognosis poor overall all cultures and implementation consultant notes reviewed impression, plan, and exam edited and reviewed in detail care discussed with RN Subjective ROS Limited/Unobtainable: Yes Allergies: Coded Allergies: No Known Allergies (Unverified , 01/27/17) Subjective on vent poor loc labs reviewed cultures noted Objective Last 24 Hour Vital Signs Date Time Temp Pulse Resp B/P (MAP) Pulse Ox O2 Delivery O2 Flow Rate FiO2 02/02/19 10:13 104 12 100 Mechanical Ventilator 40 02/02/19 10:03 103 145/79 02/02/19 10:02 103 145/79 02/02/19 08:53 103 25 40 02/02/19 08:00 Mechanical Ventilator 02/02/19 08:00 40 02/02/19 08:00 98.9 102 26 145/79 (101) 02/02/19 07:19 97 13 100 Mechanical Ventilator 40 02/02/19 07:14 99 22 100 Mechanical Ventilator 40 02/02/19 07:14 98 22 40 02/02/19 05:05 98 24 40 02/02/19 04:00 98.2 99 16 140/75 (96) 100 02/02/19 04:00 40 02/02/19 04:00 Mechanical Ventilator 02/02/19 03:30 97 22 40 02/02/19 03:26 97 02/02/19 01:40 92 29 100 Mechanical Ventilator 40 02/02/19 01:30 84 29 100 Mechanical Ventilator 40 02/02/19 01:30 89 25 40 02/02/19 00:00 98.1 87 20 133/71 (91) 100 02/02/19 00:00 Mechanical Ventilator 02/02/19 00:00 86 02/01/19 22:44 86 30 40 02/01/19 22:35 88 26 100 Mechanical Ventilator 40 02/01/19 22:20 84 24 99 Mechanical Ventilator 40 02/01/19 21:30 84 24 40 02/01/19 20:12 104 146/77 02/01/19 20:00 40 02/01/19 20:00 Mechanical Ventilator 02/01/19 20:00 97.9 104 20 146/77 (100) 100 02/01/19 19:31 105 30 100 Mechanical Ventilator 40 02/01/19 19:30 103 31 40 02/01/19 19:29 102 02/01/19 19:19 103 31 100 Mechanical Ventilator 40 02/01/19 16:45 97 28 40 02/01/19 16:00 Mechanical Ventilator 02/01/19 16:00 98.2 105 21 139/73 (95) 100 02/01/19 16:00 40 02/01/19 15:25 103 32 40 02/01/19 15:10 105 02/01/19 13:03 80 18 100 Mechanical Ventilator 40 02/01/19 12:55 80 16 40 02/01/19 12:55 82 20 100 Mechanical Ventilator 40 02/01/19 12:00 Mechanical Ventilator 02/01/19 12:00 98.2 87 21 138/65 (89) 100 02/01/19 12:00 40 02/01/19 11:40 85 02/01/19 10:47 78 20 100 Mechanical Ventilator 40 02/01/19 10:37 79 19 40 02/01/19 10:37 79 19 100 Mechanical Ventilator 40 Intake and Output 02/01/19 02/02/19 18:59 06:59 Intake Total 930 ml 1080 ml Output Total 1000 ml 700 ml Balance -70 ml 380 ml Free Water 150 ml 250 ml Tube Feeding 780 ml 780 ml Other 50 ml Output Urine Total 1000 ml 700 ml Objective GENERAL APPEARANCE: The patient is a chronically ill-appearing male, in no apparent distress. unresponsive. NECK: Supple. Trach site is clean, dry, and intact. CARDS: RRR without MRG LUNGS: scattered rhonchi. moderate air entry; no wheeze ABDOMEN: Soft, nontender, and nondistended. GT EXTREMITIES: No clubbing or cyanosis. reduced skin turgor multiple decubitus NEURO: obtunded and same reviewed and edited Laboratory Tests 02/02/19 05:10: White Blood Count 10.1, Red Blood Count 3.17L, Hemoglobin 8.6L, Hematocrit 27.6L , Mean Corpuscular Volume 87, Mean Corpuscular Hemoglobin 27.3, Mean Corpuscular Hemoglobin Concent 31.3L, Red Cell Distribution Width 19.0H, Platelet Count 429, Mean Platelet Volume 4.8L, Neutrophils (%) (Auto) 75.0, Lymphocytes (%) (Auto) 9.0L, Monocytes (%) (Auto) 9.4, Eosinophils (%) (Auto) 6.1H, Basophils (%) (Auto) 0.5 Current Medications Medications (Trade) Dose Ordered Sig/Iram Route PRN Reason Start Time Stop Time Status Last Admin Dose Admin Acetaminophen (Tylenol) 650 mg Q4H PRN NG fever 01/23/19 10:21 02/22/19 10:20 01/28/19 20:41 Acetaminophen/ Hydrocodone Bitart ([place] 10) 1 tab Q4H PRN GT For Pain 01/29/19 15:00 02/04/19 14:59 Albuterol/ Ipratropium (Albuterol/ Ipratropium) 3 ml Q6HRT HHN 01/28/19 19:00 02/02/19 18:59 02/02/19 07:13 Amlodipine Besylate (Norvasc) 5 mg DAILY ORAL 01/30/19 09:00 03/01/19 08:59 02/02/19 10:02 Ascorbic Acid (Vitamin C) 500 mg DAILY GT 01/31/19 09:00 03/02/19 08:59 02/02/19 10:01 Colistimethate Sodium (Colistin *inhalation use only*) 75 mg Q12HR@10,22 INH 01/26/19 12:00 02/02/19 11:59 02/02/19 10:12 Heparin Sodium (Porcine) (Heparin 5000 units/ml) 5,000 units EVERY 12 HOURS SUBQ 01/30/19 09:00 03/01/19 08:59 02/02/19 10:09 Lansoprazole (Prevacid) 30 mg DAILY GT 01/29/19 09:00 02/28/19 08:59 02/02/19 10:02 Levetiracetam (Keppra) 750 mg Q12HR GT 01/23/19 10:21 02/22/19 10:20 02/02/19 10:03 Lorazepam (Ativan 2mg/ml 1ml) 1 mg Q1H PRN IV For Seizures 01/31/19 05:30 02/07/19 05:29 Metoprolol Tartrate (Lopressor) 50 mg Q12HR GT 01/25/19 09:00 02/24/19 08:59 02/02/19 10:03 Multivitamins (Multivitamins) 1 tab DAILY GT 01/31/19 09:00 03/02/19 08:59 02/02/19 10:02 Sodium Hypochlorite (Dakin's Quarter Strength) 1 applic DAILY TOPIC 01/25/19 09:00 02/23/19 17:59 02/02/19 10:06 Nakul Cisse MD Feb 02, 2019 10:27
--- NOTE | 2019-02-02 10:57 | NUR ---
RD ASSESSMENT & RECOMMENDATIONS SEE CARE ACTIVITY FOR COMPLETE ASSESSMENT DAILY ESTIMATED NEEDS: Needs based on Underweight, TF [employer], Cachetic, Critical care, wounds/49.5kg 30-40 kcals/kg 8661-4377 total kcals 1.5-2 g protein/kg 74-99 g total protein 25-30 mL/kg 3883-9458 total fluid mLs NUTRITION DIAGNOSIS: 1) Swallowing difficulty r/t dysphagia, respiratory status as evidenced by pt is PEG dep, trach/vent dep. . 2) Increased kcal/prot needs R/T underweight status w/ wasting, and wound healing as evidenced by low BMI under guidelines, noted w/ severe generalized wasting, pt w/ multiple full thickness wounds, refer to WC eval. CURRENT TF:Vital AF 1.2 @65ml ENTERAL NUTRITION RECOMMENDATIONS: Vital AF 1.2 @ 65ml/hr x 24 hrs to provide 1560ml, 1872kcal, 117g prot, 1265ml free water - Maintain Vital AF 1.2 @ 65ml/hr as tolerated - Meets 100% est kcal and protein needs. - HOB over 30 degrees/ water flush per MD ADDITIONAL RECOMMENDATIONS: 1) WOUND HEALING: Continue Vit C and Edgard 1pkt BID 2) RECALIBRATED BED SCALE FOR ACCURATE CBW + weekly wt monitoring given underweight status 3) Check lytes daily, replete as needed . .
--- NOTE | 2019-02-02 11:26 | General Progress Note ---
Assessment/Plan Status: stable, progressing Assessment/Plan: Assessment - anemia - Resp failure - cirrhotic change on imaging with negative Hep B/C markers - Elevated Alk phos - GT dependent Recommendations - continue TF - Decrease free water - check AFP - normal - follow Na - PPI - daily CBC - no plans for EGD per family directive Subjective Allergies: Coded Allergies: No Known Allergies (Unverified , 01/27/17) Subjective non communicative tolerating TF Objective Last 24 Hour Vital Signs Date Time Temp Pulse Resp B/P (MAP) Pulse Ox O2 Delivery O2 Flow Rate FiO2 02/02/19 10:37 95 20 40 02/02/19 10:36 97 24 100 Mechanical Ventilator 40 02/02/19 10:13 104 12 100 Mechanical Ventilator 40 02/02/19 10:03 103 145/79 02/02/19 10:02 103 145/79 02/02/19 08:53 103 25 40 02/02/19 08:00 Mechanical Ventilator 02/02/19 08:00 40 02/02/19 08:00 98.9 102 26 145/79 (101) 02/02/19 08:00 98 02/02/19 07:19 97 13 100 Mechanical Ventilator 40 02/02/19 07:14 99 22 100 Mechanical Ventilator 40 02/02/19 07:14 98 22 40 02/02/19 05:05 98 24 40 02/02/19 04:00 98.2 99 16 140/75 (96) 100 02/02/19 04:00 40 02/02/19 04:00 Mechanical Ventilator 02/02/19 03:30 97 22 40 02/02/19 03:26 97 02/02/19 01:40 92 29 100 Mechanical Ventilator 40 02/02/19 01:30 84 29 100 Mechanical Ventilator 40 02/02/19 01:30 89 25 40 02/02/19 00:00 98.1 87 20 133/71 (91) 100 02/02/19 00:00 Mechanical Ventilator 02/02/19 00:00 86 02/01/19 22:44 86 30 40 02/01/19 22:35 88 26 100 Mechanical Ventilator 40 02/01/19 22:20 84 24 99 Mechanical Ventilator 40 02/01/19 21:30 84 24 40 02/01/19 20:12 104 146/77 02/01/19 20:00 40 02/01/19 20:00 Mechanical Ventilator 02/01/19 20:00 97.9 104 20 146/77 (100) 100 02/01/19 19:31 105 30 100 Mechanical Ventilator 40 02/01/19 19:30 103 31 40 02/01/19 19:29 102 02/01/19 19:19 103 31 100 Mechanical Ventilator 40 02/01/19 16:45 97 28 40 02/01/19 16:00 Mechanical Ventilator 02/01/19 16:00 98.2 105 21 139/73 (95) 100 02/01/19 16:00 40 02/01/19 15:25 103 32 40 02/01/19 15:10 105 02/01/19 13:03 80 18 100 Mechanical Ventilator 40 02/01/19 12:55 80 16 40 02/01/19 12:55 82 20 100 Mechanical Ventilator 40 02/01/19 12:00 Mechanical Ventilator 02/01/19 12:00 98.2 87 21 138/65 (89) 100 02/01/19 12:00 40 02/01/19 11:40 85 Intake and Output 02/01/19 02/02/19 19:00 07:00 Intake Total 980 ml 1030 ml Output Total 1000 ml 700 ml Balance -20 ml 330 ml Free Water 200 ml 200 ml Tube Feeding 780 ml 780 ml Other 50 ml Output Urine Total 1000 ml 700 ml Laboratory Tests 02/02/19 05:10: White Blood Count 10.1, Red Blood Count 3.17L, Hemoglobin 8.6L, Hematocrit 27.6L , Mean Corpuscular Volume 87, Mean Corpuscular Hemoglobin 27.3, Mean Corpuscular Hemoglobin Concent 31.3L, Red Cell Distribution Width 19.0H, Platelet Count 429, Mean Platelet Volume 4.8L, Neutrophils (%) (Auto) 75.0, Lymphocytes (%) (Auto) 9.0L, Monocytes (%) (Auto) 9.4, Eosinophils (%) (Auto) 6.1H, Basophils (%) (Auto) 0.5 Height (Feet): 5 Height (Inches): 5.00 Weight (Pounds): 127 Objective Frail AA man NCAT (+) Trach coarse BS RR abd soft, (+) GT contracted Oli Amaya MD Feb 02, 2019 11:26
[2019-02-02 12:00] VITALS: BP 141/71
--- NOTE | 2019-02-02 12:49 | Infectious Diseases Prog Note ---
Assessment/Plan Assessment/Plan A 1. E.coli UTI treated 2. Acinetobacter pneumonia treated 3. respiratory failure 4. pulmonary TB s/p rx 5. leucocytosis improving 7. hypertension 8. anemia 9. seizures 10. Cirrhosis P 1. Observe off antibiotic Subjective ROS Limited/Unobtainable: Yes Constitutional: Denies: fever Allergies: Coded Allergies: No Known Allergies (Unverified , 01/27/17) Objective Vital Signs Last 24 Hour Vital Signs Date Time Temp Pulse Resp B/P (MAP) Pulse Ox O2 Delivery O2 Flow Rate FiO2 02/02/19 12:35 92 13 100 Mechanical Ventilator 40 02/02/19 12:33 93 15 100 Mechanical Ventilator 40 02/02/19 12:33 92 13 40 02/02/19 12:00 Mechanical Ventilator 02/02/19 12:00 98.5 84 23 141/71 (94) 100 02/02/19 12:00 40 02/02/19 10:37 95 20 40 02/02/19 10:36 97 24 100 Mechanical Ventilator 40 02/02/19 10:13 104 12 100 Mechanical Ventilator 40 02/02/19 10:03 103 145/79 02/02/19 10:02 103 145/79 02/02/19 08:53 103 25 40 02/02/19 08:00 Mechanical Ventilator 02/02/19 08:00 40 02/02/19 08:00 98.9 102 26 145/79 (101) 02/02/19 08:00 98 02/02/19 07:19 97 13 100 Mechanical Ventilator 40 02/02/19 07:14 99 22 100 Mechanical Ventilator 40 02/02/19 07:14 98 22 40 02/02/19 05:05 98 24 40 02/02/19 04:00 98.2 99 16 140/75 (96) 100 02/02/19 04:00 40 02/02/19 04:00 Mechanical Ventilator 02/02/19 03:30 97 22 40 02/02/19 03:26 97 02/02/19 01:40 92 29 100 Mechanical Ventilator 40 02/02/19 01:30 84 29 100 Mechanical Ventilator 40 02/02/19 01:30 89 25 40 02/02/19 00:00 98.1 87 20 133/71 (91) 100 02/02/19 00:00 Mechanical Ventilator 02/02/19 00:00 86 02/01/19 22:44 86 30 40 02/01/19 22:35 88 26 100 Mechanical Ventilator 40 02/01/19 22:20 84 24 99 Mechanical Ventilator 40 02/01/19 21:30 84 24 40 02/01/19 20:12 104 146/77 02/01/19 20:00 40 02/01/19 20:00 Mechanical Ventilator 02/01/19 20:00 97.9 104 20 146/77 (100) 100 02/01/19 19:31 105 30 100 Mechanical Ventilator 40 02/01/19 19:30 103 31 40 02/01/19 19:29 102 02/01/19 19:19 103 31 100 Mechanical Ventilator 40 02/01/19 16:45 97 28 40 02/01/19 16:00 Mechanical Ventilator 02/01/19 16:00 98.2 105 21 139/73 (95) 100 02/01/19 16:00 40 02/01/19 15:25 103 32 40 02/01/19 15:10 105 02/01/19 13:03 80 18 100 Mechanical Ventilator 40 02/01/19 12:55 80 16 40 02/01/19 12:55 82 20 100 Mechanical Ventilator 40 Height (Feet): 5 Height (Inches): 5.00 Weight (Pounds): 127 General Appearance: no acute distress HEENT: status post trach Respiratory/Chest: lungs clear, other - on ventilator Cardiovascular: normal rate Abdomen: soft, non tender, other - GT feeding Extremities: other - pedal edema Skin: ulcers Neurologic/Psychiatric: unresponsiveness Laboratory Tests Test 02/02/19 05:10 White Blood Count 10.1 K/UL (4.8-10.8) Red Blood Count 3.17 M/UL (4.70-6.10) L Hemoglobin 8.6 G/DL (14.2-18.0) L Hematocrit 27.6 % (42.0-52.0) L Mean Corpuscular Volume 87 FL (80-99) Mean Corpuscular Hemoglobin 27.3 PG (27.0-31.0) Mean Corpuscular Hemoglobin Concent 31.3 G/DL (32.0-36.0) L Red Cell Distribution Width 19.0 % (11.6-14.8) H Platelet Count 429 K/UL (150-450) Mean Platelet Volume 4.8 FL (6.5-10.1) L Neutrophils (%) (Auto) 75.0 % (45.0-75.0) Lymphocytes (%) (Auto) 9.0 % (20.0-45.0) L Monocytes (%) (Auto) 9.4 % (1.0-10.0) Eosinophils (%) (Auto) 6.1 % (0.0-3.0) H Basophils (%) (Auto) 0.5 % (0.0-2.0) Current Medications Medications (Trade) Dose Ordered Sig/Iram Route PRN Reason Start Time Stop Time Status Last Admin Dose Admin Acetaminophen (Tylenol) 650 mg Q4H PRN NG fever 01/23/19 10:21 02/22/19 10:20 01/28/19 20:41 Acetaminophen/ Hydrocodone Bitart ([place] [address]) 1 tab Q4H PRN GT For Pain 01/29/19 15:00 02/04/19 14:59 Albuterol/ Ipratropium (Albuterol/ Ipratropium) 3 ml Q6HRT HHN 01/28/19 19:00 02/02/19 18:59 02/02/19 12:33 Amlodipine Besylate (Norvasc) 5 mg DAILY ORAL 01/30/19 09:00 03/01/19 08:59 02/02/19 10:02 Ascorbic Acid (Vitamin C) 500 mg DAILY GT 01/31/19 09:00 03/02/19 08:59 02/02/19 10:01 Heparin Sodium (Porcine) (Heparin 5000 units/ml) 5,000 units EVERY 12 HOURS SUBQ 01/30/19 09:00 03/01/19 08:59 02/02/19 10:09 Lansoprazole (Prevacid) 30 mg DAILY GT 01/29/19 09:00 02/28/19 08:59 02/02/19 10:02 Levetiracetam (Keppra) 750 mg Q12HR GT 01/23/19 10:21 02/22/19 10:20 02/02/19 10:03 Lorazepam (Ativan 2mg/ml 1ml) 1 mg Q1H PRN IV For Seizures 01/31/19 05:30 02/07/19 05:29 Metoprolol Tartrate (Lopressor) 50 mg Q12HR GT 01/25/19 09:00 02/24/19 08:59 02/02/19 10:03 Multivitamins (Multivitamins) 1 tab DAILY GT 01/31/19 09:00 03/02/19 08:59 02/02/19 10:02 Sodium Hypochlorite (Dakin's Quarter Strength) 1 applic DAILY TOPIC 01/25/19 09:00 02/23/19 17:59 02/02/19 10:06 Rahul Shen MD Feb 02, 2019 12:49
--- NOTE | 2019-02-02 13:05 | NUR ---
CASE MANAGEMENT:REVIEW 02/02/2019 SI: AC/CHR RENAL FAILURE. POSSIBLE SEPSIS PULMONARY TUBERCULOSIS. TRACH T 98.5 HR 84 RR 23 B/P 141/71 SATS 100% ON MECH VENT FiO2 40 HGB 8.6 HCT 27.6 IS: COLISTIN INH Q12 IVF@100/HR NORVASC PO QD HEPARIN SQ Q12 DUONEB HHN Q6HRS RTC LOPRESSOR GT Q12 KEPPRA GT Q12 : STEP DOWN UNIT DCP: FROM [facility]
--- NOTE | 2019-02-02 15:06 | Surgery Progress Note ---
Surgery Progress Note Subjective Additional Comments afebrile, HD stable labs improved exam stable. Objective Last 24 Hour Vital Signs Date Time Temp Pulse Resp B/P (MAP) Pulse Ox O2 Delivery O2 Flow Rate FiO2 02/02/19 12:35 92 13 100 Mechanical Ventilator 40 02/02/19 12:33 93 15 100 Mechanical Ventilator 40 02/02/19 12:33 92 13 40 02/02/19 12:00 84 02/02/19 12:00 Mechanical Ventilator 02/02/19 12:00 98.5 84 23 141/71 (94) 100 02/02/19 12:00 40 02/02/19 10:37 95 20 40 02/02/19 10:36 97 24 100 Mechanical Ventilator 40 02/02/19 10:13 104 12 100 Mechanical Ventilator 40 02/02/19 10:03 103 145/79 02/02/19 10:02 103 145/79 02/02/19 08:53 103 25 40 02/02/19 08:00 Mechanical Ventilator 02/02/19 08:00 40 02/02/19 08:00 98.9 102 26 145/79 (101) 02/02/19 08:00 98 02/02/19 07:19 97 13 100 Mechanical Ventilator 40 02/02/19 07:14 99 22 100 Mechanical Ventilator 40 02/02/19 07:14 98 22 40 02/02/19 05:05 98 24 40 02/02/19 04:00 98.2 99 16 140/75 (96) 100 02/02/19 04:00 40 02/02/19 04:00 Mechanical Ventilator 02/02/19 03:30 97 22 40 02/02/19 03:26 97 02/02/19 01:40 92 29 100 Mechanical Ventilator 40 02/02/19 01:30 84 29 100 Mechanical Ventilator 40 02/02/19 01:30 89 25 40 02/02/19 00:00 98.1 87 20 133/71 (91) 100 02/02/19 00:00 Mechanical Ventilator 02/02/19 00:00 86 02/01/19 22:44 86 30 40 02/01/19 22:35 88 26 100 Mechanical Ventilator 40 02/01/19 22:20 84 24 99 Mechanical Ventilator 40 02/01/19 21:30 84 24 40 02/01/19 20:12 104 146/77 02/01/19 20:00 40 02/01/19 20:00 Mechanical Ventilator 02/01/19 20:00 97.9 104 20 146/77 (100) 100 02/01/19 19:31 105 30 100 Mechanical Ventilator 40 02/01/19 19:30 103 31 40 02/01/19 19:29 102 02/01/19 19:19 103 31 100 Mechanical Ventilator 40 02/01/19 16:45 97 28 40 02/01/19 16:00 Mechanical Ventilator 02/01/19 16:00 98.2 105 21 139/73 (95) 100 02/01/19 16:00 40 02/01/19 15:25 103 32 40 02/01/19 15:10 105 I&O Intake and Output 02/01/19 02/02/19 19:00 07:00 Intake Total 980 ml 1030 ml Output Total 1000 ml 700 ml Balance -20 ml 330 ml Free Water 200 ml 200 ml Tube Feeding 780 ml 780 ml Other 50 ml Output Urine Total 1000 ml 700 ml Dressing: other Wound: other Drains: other Cardiovascular: RSR Respiratory: decreased breath sounds Abdomen: soft, present bowel sounds, non-distended Extremities: no cyanosis, other Laboratory Tests Test 02/02/19 05:10 White Blood Count 10.1 K/UL (4.8-10.8) Red Blood Count 3.17 M/UL (4.70-6.10) L Hemoglobin 8.6 G/DL (14.2-18.0) L Hematocrit 27.6 % (42.0-52.0) L Mean Corpuscular Volume 87 FL (80-99) Mean Corpuscular Hemoglobin 27.3 PG (27.0-31.0) Mean Corpuscular Hemoglobin Concent 31.3 G/DL (32.0-36.0) L Red Cell Distribution Width 19.0 % (11.6-14.8) H Platelet Count 429 K/UL (150-450) Mean Platelet Volume 4.8 FL (6.5-10.1) L Neutrophils (%) (Auto) 75.0 % (45.0-75.0) Lymphocytes (%) (Auto) 9.0 % (20.0-45.0) L Monocytes (%) (Auto) 9.4 % (1.0-10.0) Eosinophils (%) (Auto) 6.1 % (0.0-3.0) H Basophils (%) (Auto) 0.5 % (0.0-2.0) Plan Problems: (1) HCAP (healthcare-associated pneumonia) (2) Decubitus ulcer Assessment & Plan: Pt presented on admission with multiple pressure injuries. Resolving pressure injury L occipital. Dry pink epithelial noted. Skin assessed under trach collar and no areas of concerns noted . R and L ears dry . Full thickness pressure injury with undermining thoracic spine . Base of wound 75% granular with 25% fibrinous slough. Mild odor noted.(L)8.5cm x (W)6.5cmx(D) 1cm, undermining clockwise 6-1 by 3cm @12o'clock. Full thickness pressure injury L trochanter. 100% mixed necrosis/slough at base of wound and undermined borders.Non-blanchable erythema with induration noted periwound. Mild odor noted .(L)3.5cm x (W)4.5cm. Resolving DTPI L ischium .Centrally wound is red and fluctuant .Bone is palpable. Black with red tinged indurated borders noted. (L) (L)4.4cm x (W) 3.2cm. Ful thickness pressure injury R Iliac with 10% velazquez slough centrally.90% granular.Edges adherent and flat. (L)3cm x (W)3.2cm x(D)0.2cm. No odor or exudate noted.Darker skin tone without fluctuance noted periwound. Full thickness pressure injury with undermining R trochanter. Base of wound 60^ beefy red with 40% velazquez slough.erythejma noted along borders. Small amt seropurulent exudate that is mildly odorous.(L)5.5cm x (W)6.6cm x (D)1.5cm, undermining clockwise 12-12 by 4.5cm @3o'clock. Full thickness pressure injury R ischium (L)4.2cm x (W)5.5cm x(D)1.6cm, undermining 12-12 by 1.8cm @12o'clock .Base of wound 60% granular ,40% velazquez slough undermined borders.Wound has mild odor with small amt seropurulent exudate.darker skin tone that is indurated periwound. Resolving pressure injury sacrum . Base of wound dry with pink epithelial.with scattered shearing within base of wound. L heel boggy with non-blanchable erythema. DTPI R heel and Lateral aspect .Base of wound is maroon with fluctuance. (L) 4.5cm x (W)7.3cm. Tx.Plan. Cleanse wounds Thoracic and lumbar spine with Dakin's 0.125% segun. Pack with Dakin's moist gauze. Apply Moisture Barrier Paste periwound. Cover each wound with Optifoam drsg.Twice Daily and prn. Cleanse wound L trochanter and L ischium with Dakin's 0.125% segun. Pack with Dakin's moist Gauze.Apply Moisture Barrier paste periwound. Cover with Optifoam drsg. Twice daily and prn. Cleanse wounds R iliac ,R trochanter,R ischium with Dakin's 0.125% segun. Pack with Dakin's moist gauze. Apply Moisture Barrier Paste periwound. Cover with Optifoam drsg Twice daily and prn. Apply Moisture Barrier paste to sacrum. Cover with Optifoam drsg. Change every 3 days and prn. Apply Cavilon Skin Barrier to Both heels. Cover each heel with Optifoam drsg. Change every 7 days and prn. Air Fluidized Mattress. Reposition at least every 2hours or as tolerated. Off-load heels with pillow. Spoke with family. I explained to them that his condition has been deteriorating for some time now. i have seen him in the past and during each admission his wounds are deteriorating despite best efforts at care. He has received adequate nutritional support/supplementation, adequate wound care, and appropriate prevention while in hospital during each admission but wounds continue to deteriorate. they expressed understanding. cont with current care plan (3) Anemia (4) UTI (urinary tract infection), bacterial (5) Toxic metabolic encephalopathy (6) Dementia (7) Dyspnea (8) Respiratory distress (9) Hyperlipidemia (10) Aspiration pneumonia (11) Aspiration pneumonia (12) Vitamin B 12 deficiency Assessment & Plan: DAILY ESTIMATED NEEDS: Needs based on Underweight, TF [employer], Cachetic, Critical care, wounds/49.5kg 30-40 kcals/kg 9031-4466 total kcals 1.5-2 g protein/kg 74-99 g total protein 25-30 mL/kg 5804-2696 total fluid mLs NUTRITION DIAGNOSIS: 1) Swallowing difficulty r/t dysphagia, respiratory status as evidenced by pt is PEG dep, trach/vent dep. . 2) Increased kcal/prot needs R/T underweight status w/ wasting, and wound healing as evidenced by low BMI under guidelines, noted w/ severe generalized wasting, pt w/ multiple advanced wounds, pending eval ENTERAL NUTRITION RECOMMENDATIONS: Vital AF 1.2 @ 65ml/hr x 24 hrs to provide 1560ml, 1872kcal, 117g prot, 1265ml free water - Maintain Vital AF 1.2 @ 65ml/hr as tolerated - Meets 100% est kcal and protein needs. - HOB over 30 degrees/ water flush per MD ADDITIONAL RECOMMENDATIONS: 1) WOUND HEALING: add Vit C 500mg BID, Edgard 1pkt BID 2) RECALIBRATE BED SCALE FOR ACCURATE CBW + weekly wt monitoring given underweight status 3) Check lytes daily, replete as needed - (Low K, mg) 4) Continue to maintain calibrated bed scale wts (13) Encephalopathy (14) Sepsis Assessment & Plan: Leukocytosis resolved cont with IV fluids Cont with IV abx as per ID CXR noted labs noted Thank you for this consultation we will follow with recommendations (15) Pneumonia (16) Status epilepticus (17) HTN (hypertension) (18) Encephalopathy acute (19) BPH (benign prostatic hyperplasia) (20) Abnormal LFTs (21) Probable sepsis (2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 (23) Zev Mchugh Feb 02, 2019 15:06
[2019-02-02 16:00] VITALS: BP 136/71
--- NOTE | 2019-02-02 19:15 | NUR ---
HAND-OFF: Report given to .SERGIO REEVES.
--- NOTE | 2019-02-02 19:30 | NUR ---
NURSE NOTES: Recvd.on a vent.TRACHE.See settings.Lungs Diminished BS at bases,Few scatt.Ronchi.Sat.-100%.Suctioned Tk.Beige yellowish sec.NS Lavaged.Pos.chg.Backrub with lotion.Obtunded does'nt follows command.Stiff and contracted.GT-Feeding in progress.F/cath.patent see I/O.
[2019-02-02 20:00] VITALS: BP 142/74
[2019-02-03] VITALS: BP 138/71
--- NOTE | 2019-02-03 02:00 | Progress Note ---
DATE: 02/02/2019 CARDIOLOGY PROGRESS NOTE SUBJECTIVE: He remains on vent. Poorly responsive. No new seizures. OBJECTIVE: VITAL SIGNS: Blood pressure 140/75, pulse 99, and respirations 16. Sinus and sinus tachycardia. LUNGS: Bilateral breath sounds. HEART: Regular rhythm and rate. Normal S1, S2. ABDOMEN: Soft. G-tube intact. EXTREMITIES: Trace dependent edema. LABORATORY DATA: White count 10 and hemoglobin 8.6. Sodium 133, potassium 5, bicarb 34, BUN 27, and creatinine 0.6. Alpha-fetoprotein is 1.1. IMPRESSION: 1. Healthcare-acquired pneumonia. 2. Respiratory failure. 3. Rehydrated. 4. Seizure disorder. 5. Paroxysmal sinus tachycardia. 6. Hypertensive heart disease. PLAN: 1. Off intravenous fluids. 2. Titrating antihypertensives. 3. Ventilator support. 4. Anti-seizure therapy. 5. Discharge planning. Jones Arauz M.D. DR: ERICA JOB#: [id number] CC:
[2019-02-03 04:00] VITALS: BP 147/87
--- NOTE | 2019-02-03 05:00 | NUR ---
HAND-OFF: Report given to LALA ISRAEL.
--- NOTE | 2019-02-03 05:20 | NUR ---
NURSE NOTES: Received pt. from Jairo RN, pt. in bed obtunded, opens eyes- non-verbal, no signs or symptoms of acute cardiac or respiratory distress noted, bed in lowest position and call light within easy reach, safety brakes engaged and side rails up x's3, pt. appears to be tolerating current vent settings well- Ac 12, TV 500, Fio2 at 40% and peep of 5, G tube feeding running Vital 1.2 at 65cc/hr- no residual noted, Manzo intact and draining to gravity, pt. appears to be clean and dry and appears to be comfortable, Rt. hand 22G IV intact and patent, safety measures continued, will continue with plan of care.
--- NOTE | 2019-02-03 07:11 | NUR ---
HAND-OFF: Report given to No REEVES, pt. remains stable and no signs of distress noted.
--- NOTE | 2019-02-03 07:19 | NUR ---
RESPIRATORY NOTE: received pt on vent, trached with portex 7. midline and patent with no resp distress noted. alarms set and audible with back up trach and ambu bag at bedside. will cont to monitor
--- NOTE | 2019-02-03 07:22 | NUR ---
NURSE NOTES: Report received from LALA Rider. Observed patient in bed. Open eyes spontaneously. Obtunded. On ventilator with previous setting and tolerated well with no distress noted. GT site intact with ongoing feeding. HOB elevated. F/C intact and draining well. IV site intact and patent. Bed in lowest position. Call light within reach. Will continue to monitor.
[2019-02-03 08:00] VITALS: BP 149/88
[2019-02-03] MEDS: Ascorbic Acid 500mg tab GT SCH (08:26)
[2019-02-03] MEDS: Metoprolol Tartrate 50mg tab GT SCH ×2 (08:27→20:09)
[2019-02-03] MEDS: levETIRAcetam 500mg/5ml Liquid GT SCH ×2 (08:27→20:09)
[2019-02-03] MEDS: Heparin 5000 units/ml inj SUBQ SCH ×2 (08:28→20:10)
[2019-02-03] MEDS: Dakin's 0.125% Soln (Quarter Strength) 16oz TOPIC SCH (08:29)
--- NOTE | 2019-02-03 08:43 | Pulmonology Progress Note ---
Assessment/Plan Assessment/Plan ASSESSMENT: toxic metabolic encephalopathy, history of stroke, chronic respiratory failure, hyponatremia, acute on chronic renal failure, chronic encephalopathy, seizure disorder, pulmonary tuberculosis, and anemia possible sepsis, leukocytosis PLAN care noted TB meds and monitor labs IV antibiotics- ID noted respiratory care Ventilatory support- no wean; keep on AC SNF meds monitor HH supportive care as is- adjust as needed; RT noted suction as needed oxygen therapy nursing notes reviewed dc once stable care noted and discussed prognosis poor overall all cultures and consultant electronics notes reviewed impression, plan, and exam edited and reviewed in detail care discussed with RN Subjective ROS Limited/Unobtainable: Yes Allergies: Coded Allergies: No Known Allergies (Unverified , 01/27/17) Subjective on vent poor loc; obtunded labs reviewed cultures noted care noted RT care noted Objective Last 24 Hour Vital Signs Date Time Temp Pulse Resp B/P (MAP) Pulse Ox O2 Delivery O2 Flow Rate FiO2 02/03/19 08:27 106 149/88 02/03/19 08:27 106 149/88 02/03/19 08:00 Mechanical Ventilator 02/03/19 08:00 40 02/03/19 08:00 99.4 106 22 149/88 (108) 100 02/03/19 07:17 106 24 40 02/03/19 05:15 102 24 40 02/03/19 04:00 Mechanical Ventilator 02/03/19 04:00 40 02/03/19 04:00 102 02/03/19 04:00 98.0 102 21 147/87 (107) 100 02/03/19 03:04 99 20 40 02/03/19 01:06 95 24 40 02/03/19 00:00 40 02/03/19 00:00 102 02/03/19 00:00 Mechanical Ventilator 02/03/19 00:00 97.9 102 22 138/71 (93) 100 02/02/19 23:05 100 22 40 02/02/19 20:56 102 25 40 02/02/19 20:55 102 25 100 Mechanical Ventilator 40 02/02/19 20:47 100 142/74 02/02/19 20:00 Mechanical Ventilator 02/02/19 20:00 98.1 100 22 142/74 (96) 100 02/02/19 20:00 100 02/02/19 20:00 40 02/02/19 19:01 100 23 40 02/02/19 17:20 97 25 40 02/02/19 16:00 97.0 97 22 136/71 (92) 100 02/02/19 16:00 40 02/02/19 16:00 98 02/02/19 16:00 Mechanical Ventilator 02/02/19 15:16 98 27 40 02/02/19 12:35 92 13 100 Mechanical Ventilator 40 02/02/19 12:33 93 15 100 Mechanical Ventilator 40 02/02/19 12:33 92 13 40 02/02/19 12:00 84 02/02/19 12:00 Mechanical Ventilator 02/02/19 12:00 98.5 84 23 141/71 (94) 100 02/02/19 12:00 40 02/02/19 10:37 95 20 40 02/02/19 10:36 97 24 100 Mechanical Ventilator 40 02/02/19 10:13 104 12 100 Mechanical Ventilator 40 02/02/19 10:03 103 145/79 02/02/19 10:02 103 145/79 02/02/19 08:53 103 25 40 Intake and Output 02/02/19 02/03/19 19:00 07:00 Intake Total 1080 ml 1080 ml Output Total 850 ml 500 ml Balance 230 ml 580 ml Free Water 300 ml 300 ml Tube Feeding 780 ml 780 ml Output Urine Total 850 ml 500 ml Objective GENERAL APPEARANCE: The patient is a chronically ill-appearing male, in no apparent distress. unresponsive. nonverbal NECK: Supple. Trach site is clean, dry, and intact. CARDS: RRR without MRG LUNGS: minimal rhonchi. moderate air entry; no wheeze ABDOMEN: Soft, nontender, and nondistended. GT; no HSM EXTREMITIES: No clubbing or cyanosis. reduced skin turgor multiple decubitus NEURO: obtunded and same reviewed and edited Current Medications Medications (Trade) Dose Ordered Sig/Iram Route PRN Reason Start Time Stop Time Status Last Admin Dose Admin Acetaminophen (Tylenol) 650 mg Q4H PRN NG fever 01/23/19 10:21 02/22/19 10:20 01/28/19 20:41 Acetaminophen/ Hydrocodone Bitart ([place] 10/325) 1 tab Q4H PRN GT For Pain 01/29/19 15:00 02/04/19 14:59 Amlodipine Besylate (Norvasc) 5 mg DAILY ORAL 01/30/19 09:00 03/01/19 08:59 02/03/19 08:27 Ascorbic Acid (Vitamin C) 500 mg DAILY GT 01/31/19 09:00 03/02/19 08:59 02/03/19 08:26 Heparin Sodium (Porcine) (Heparin 5000 units/ml) 5,000 units EVERY 12 HOURS SUBQ 01/30/19 09:00 03/01/19 08:59 02/03/19 08:28 Lansoprazole (Prevacid) 30 mg DAILY GT 01/29/19 09:00 02/28/19 08:59 02/03/19 08:26 Levetiracetam (Keppra) 750 mg Q12HR GT 01/23/19 10:21 02/22/19 10:20 02/03/19 08:27 Lorazepam (Ativan 2mg/ml 1ml) 1 mg Q1H PRN IV For Seizures 01/31/19 05:30 02/07/19 05:29 Metoprolol Tartrate (Lopressor) 50 mg Q12HR GT 01/25/19 09:00 02/24/19 08:59 02/03/19 08:27 Multivitamins (Multivitamins) 1 tab DAILY GT 01/31/19 09:00 03/02/19 08:59 02/03/19 08:27 Sodium Hypochlorite (Dakin's Quarter Strength) 1 applic DAILY TOPIC 01/25/19 09:00 02/23/19 17:59 02/03/19 08:29 Nakul Cisse MD Feb 03, 2019 08:43
--- NOTE | 2019-02-03 11:27 | Infectious Diseases Prog Note ---
Assessment/Plan Assessment/Plan antibiotics : none A 1. e.coli esbl UTI s/p rx 2. acenitobacter pneumonia s/p rx 3. respiratory failure 4. pulmonary TB s/p rx 5. leucocytosis resolved 7. hypertension 8. anemia 9. seizures P 1. continue off antibiotics Subjective ROS Limited/Unobtainable: Yes Allergies: Coded Allergies: No Known Allergies (Unverified , 01/27/17) Objective Vital Signs Last 24 Hour Vital Signs Date Time Temp Pulse Resp B/P (MAP) Pulse Ox O2 Delivery O2 Flow Rate FiO2 02/03/19 10:43 84 24 40 02/03/19 09:22 82 20 40 02/03/19 08:27 106 149/88 02/03/19 08:27 106 149/88 02/03/19 08:00 Mechanical Ventilator 02/03/19 08:00 102 02/03/19 08:00 40 02/03/19 08:00 99.4 106 22 149/88 (108) 100 02/03/19 07:17 106 24 40 02/03/19 05:15 102 24 40 02/03/19 04:00 Mechanical Ventilator 02/03/19 04:00 40 02/03/19 04:00 102 02/03/19 04:00 98.0 102 21 147/87 (107) 100 02/03/19 03:04 99 20 40 02/03/19 01:06 95 24 40 02/03/19 00:00 40 02/03/19 00:00 102 02/03/19 00:00 Mechanical Ventilator 02/03/19 00:00 97.9 102 22 138/71 (93) 100 02/02/19 23:05 100 22 40 02/02/19 20:56 102 25 40 02/02/19 20:55 102 25 100 Mechanical Ventilator 40 02/02/19 20:47 100 142/74 02/02/19 20:00 Mechanical Ventilator 02/02/19 20:00 98.1 100 22 142/74 (96) 100 02/02/19 20:00 100 02/02/19 20:00 40 02/02/19 19:01 100 23 40 02/02/19 17:20 97 25 40 02/02/19 16:00 97.0 97 22 136/71 (92) 100 02/02/19 16:00 40 02/02/19 16:00 98 02/02/19 16:00 Mechanical Ventilator 02/02/19 15:16 98 27 40 02/02/19 12:35 92 13 100 Mechanical Ventilator 40 02/02/19 12:33 93 15 100 Mechanical Ventilator 40 02/02/19 12:33 92 13 40 02/02/19 12:00 84 02/02/19 12:00 Mechanical Ventilator 02/02/19 12:00 98.5 84 23 141/71 (94) 100 02/02/19 12:00 40 Height (Feet): 5 Height (Inches): 5.00 Weight (Pounds): 127 Respiratory/Chest: lungs clear Cardiovascular: normal rate, regular rhythm, no gallop/murmur Abdomen: soft, non tender, other - GT Extremities: no edema Current Medications Medications (Trade) Dose Ordered Sig/Iram Route PRN Reason Start Time Stop Time Status Last Admin Dose Admin Acetaminophen (Tylenol) 650 mg Q4H PRN NG fever 01/23/19 10:21 02/22/19 10:20 01/28/19 20:41 Acetaminophen/ Hydrocodone Bitart ([place] 10/325) 1 tab Q4H PRN GT For Pain 01/29/19 15:00 02/04/19 14:59 Amlodipine Besylate (Norvasc) 5 mg DAILY ORAL 01/30/19 09:00 03/01/19 08:59 02/03/19 08:27 Ascorbic Acid (Vitamin C) 500 mg DAILY GT 01/31/19 09:00 03/02/19 08:59 02/03/19 08:26 Heparin Sodium (Porcine) (Heparin 5000 units/ml) 5,000 units EVERY 12 HOURS SUBQ 01/30/19 09:00 03/01/19 08:59 02/03/19 08:28 Lansoprazole (Prevacid) 30 mg DAILY GT 01/29/19 09:00 02/28/19 08:59 02/03/19 08:26 Levetiracetam (Keppra) 750 mg Q12HR GT 01/23/19 10:21 02/22/19 10:20 02/03/19 08:27 Lorazepam (Ativan 2mg/ml 1ml) 1 mg Q1H PRN IV For Seizures 01/31/19 05:30 02/07/19 05:29 Metoprolol Tartrate (Lopressor) 50 mg Q12HR GT 01/25/19 09:00 02/24/19 08:59 02/03/19 08:27 Multivitamins (Multivitamins) 1 tab DAILY GT 01/31/19 09:00 03/02/19 08:59 02/03/19 08:27 Sodium Hypochlorite (Dakin's Quarter Strength) 1 applic DAILY TOPIC 01/25/19 09:00 02/23/19 17:59 02/03/19 08:29 Sergio Urban MD Feb 03, 2019 11:27
[2019-02-03 12:00] VITALS: BP 136/71
--- NOTE | 2019-02-03 12:25 | Surgery Progress Note ---
Surgery Progress Note Subjective Symptoms: other Objective Last 24 Hour Vital Signs Date Time Temp Pulse Resp B/P (MAP) Pulse Ox O2 Delivery O2 Flow Rate FiO2 02/03/19 10:43 84 24 40 02/03/19 09:22 82 20 40 02/03/19 08:27 106 149/88 02/03/19 08:27 106 149/88 02/03/19 08:00 Mechanical Ventilator 02/03/19 08:00 102 02/03/19 08:00 40 02/03/19 08:00 99.4 106 22 149/88 (108) 100 02/03/19 07:17 106 24 40 02/03/19 05:15 102 24 40 02/03/19 04:00 Mechanical Ventilator 02/03/19 04:00 40 02/03/19 04:00 102 02/03/19 04:00 98.0 102 21 147/87 (107) 100 02/03/19 03:04 99 20 40 02/03/19 01:06 95 24 40 02/03/19 00:00 40 02/03/19 00:00 102 02/03/19 00:00 Mechanical Ventilator 02/03/19 00:00 97.9 102 22 138/71 (93) 100 02/02/19 23:05 100 22 40 02/02/19 20:56 102 25 40 02/02/19 20:55 102 25 100 Mechanical Ventilator 40 02/02/19 20:47 100 142/74 02/02/19 20:00 Mechanical Ventilator 02/02/19 20:00 98.1 100 22 142/74 (96) 100 02/02/19 20:00 100 02/02/19 20:00 40 02/02/19 19:01 100 23 40 02/02/19 17:20 97 25 40 02/02/19 16:00 97.0 97 22 136/71 (92) 100 02/02/19 16:00 40 02/02/19 16:00 98 02/02/19 16:00 Mechanical Ventilator 02/02/19 15:16 98 27 40 02/02/19 12:35 92 13 100 Mechanical Ventilator 40 02/02/19 12:33 93 15 100 Mechanical Ventilator 40 02/02/19 12:33 92 13 40 I&O Intake and Output 02/02/19 02/03/19 19:00 07:00 Intake Total 1080 ml 1080 ml Output Total 850 ml 500 ml Balance 230 ml 580 ml Free Water 300 ml 300 ml Tube Feeding 780 ml 780 ml Output Urine Total 850 ml 500 ml Dressing: dry Wound: other Drains: other Cardiovascular: RSR Respiratory: decreased breath sounds Abdomen: soft, present bowel sounds Extremities: no cyanosis, other Plan Problems: (1) HCAP (healthcare-associated pneumonia) (2) Decubitus ulcer Assessment & Plan: Pt presented on admission with multiple pressure injuries. Resolving pressure injury L occipital. Dry pink epithelial noted. Skin assessed under trach collar and no areas of concerns noted . R and L ears dry . Full thickness pressure injury with undermining thoracic spine . Base of wound 75% granular with 25% fibrinous slough. Mild odor noted.(L)8.5cm x (W)6.5cmx(D) 1cm, undermining clockwise 6-1 by 3cm @12o'clock. Full thickness pressure injury L trochanter. 100% mixed necrosis/slough at base of wound and undermined borders.Non-blanchable erythema with induration noted periwound. Mild odor noted .(L)3.5cm x (W)4.5cm. Resolving DTPI L ischium .Centrally wound is red and fluctuant .Bone is palpable. Black with red tinged indurated borders noted. (L) (L)4.4cm x (W) 3.2cm. Ful thickness pressure injury R Iliac with 10% velazquez slough centrally.90% granular.Edges adherent and flat. (L)3cm x (W)3.2cm x(D)0.2cm. No odor or exudate noted.Darker skin tone without fluctuance noted periwound. Full thickness pressure injury with undermining R trochanter. Base of wound 60^ beefy red with 40% velazquez slough.erythejma noted along borders. Small amt seropurulent exudate that is mildly odorous.(L)5.5cm x (W)6.6cm x (D)1.5cm, undermining clockwise 12-12 by 4.5cm @3o'clock. Full thickness pressure injury R ischium (L)4.2cm x (W)5.5cm x(D)1.6cm, undermining 12-12 by 1.8cm @12o'clock .Base of wound 60% granular ,40% velazquez slough undermined borders.Wound has mild odor with small amt seropurulent exudate.darker skin tone that is indurated periwound. Resolving pressure injury sacrum . Base of wound dry with pink epithelial.with scattered shearing within base of wound. L heel boggy with non-blanchable erythema. DTPI R heel and Lateral aspect .Base of wound is maroon with fluctuance. (L) 4.5cm x (W)7.3cm. Tx.Plan. Cleanse wounds Thoracic and lumbar spine with Dakin's 0.125% segun. Pack with Dakin's moist gauze. Apply Moisture Barrier Paste periwound. Cover each wound with Optifoam drsg.Twice Daily and prn. Cleanse wound L trochanter and L ischium with Dakin's 0.125% segun. Pack with Dakin's moist Gauze.Apply Moisture Barrier paste periwound. Cover with Optifoam drsg. Twice daily and prn. Cleanse wounds R iliac ,R trochanter,R ischium with Dakin's 0.125% segun. Pack with Dakin's moist gauze. Apply Moisture Barrier Paste periwound. Cover with Optifoam drsg Twice daily and prn. Apply Moisture Barrier paste to sacrum. Cover with Optifoam drsg. Change every 3 days and prn. Apply Cavilon Skin Barrier to Both heels. Cover each heel with Optifoam drsg. Change every 7 days and prn. Air Fluidized Mattress. Reposition at least every 2hours or as tolerated. Off-load heels with pillow. Spoke with family. I explained to them that his condition has been deteriorating for some time now. i have seen him in the past and during each admission his wounds are deteriorating despite best efforts at care. He has received adequate nutritional support/supplementation, adequate wound care, and appropriate prevention while in hospital during each admission but wounds continue to deteriorate. they expressed understanding. cont with current care plan (3) Anemia (4) UTI (urinary tract infection), bacterial (5) Toxic metabolic encephalopathy (6) Dementia (7) Dyspnea (8) Respiratory distress (9) Hyperlipidemia (10) Aspiration pneumonia (11) Aspiration pneumonia (12) Vitamin B 12 deficiency Assessment & Plan: DAILY ESTIMATED NEEDS: Needs based on Underweight, TF [employer], Cachetic, Critical care, wounds/49.5kg 30-40 kcals/kg 0155-9005 total kcals 1.5-2 g protein/kg 74-99 g total protein 25-30 mL/kg 1584-6133 total fluid mLs NUTRITION DIAGNOSIS: 1) Swallowing difficulty r/t dysphagia, respiratory status as evidenced by pt is PEG dep, trach/vent dep. . 2) Increased kcal/prot needs R/T underweight status w/ wasting, and wound healing as evidenced by low BMI under guidelines, noted w/ severe generalized wasting, pt w/ multiple advanced wounds, pending eval ENTERAL NUTRITION RECOMMENDATIONS: Vital AF 1.2 @ 65ml/hr x 24 hrs to provide 1560ml, 1872kcal, 117g prot, 1265ml free water - Maintain Vital AF 1.2 @ 65ml/hr as tolerated - Meets 100% est kcal and protein needs. - HOB over 30 degrees/ water flush per MD ADDITIONAL RECOMMENDATIONS: 1) WOUND HEALING: add Vit C 500mg BID, Edgard 1pkt BID 2) RECALIBRATE BED SCALE FOR ACCURATE CBW + weekly wt monitoring given underweight status 3) Check lytes daily, replete as needed - (Low K, mg) 4) Continue to maintain calibrated bed scale wts (13) Encephalopathy (14) Sepsis Assessment & Plan: Leukocytosis resolved cont with IV fluids Cont with IV abx as per ID CXR noted labs noted Thank you for this consultation we will follow with recommendations (15) Pneumonia (16) Status epilepticus (17) HTN (hypertension) (18) Encephalopathy acute (19) BPH (benign prostatic hyperplasia) (20) Abnormal LFTs (21) Probable sepsis (2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 (23) Zev Mchugh Feb 03, 2019 12:25
--- NOTE | 2019-02-03 15:10 | General Progress Note ---
Assessment/Plan Problem List: (1) Decubitus ulcer ICD Codes: L89.90 - Pressure ulcer of unspecified site, unspecified stage SNOMED: 752760393 Qualifiers: Qualified Codes: L89.94 - Pressure ulcer of unspecified site, stage 4 (2) Anemia ICD Codes: D64.9 - Anemia, unspecified SNOMED: 630180286 Qualifiers: Qualified Codes: D64.9 - Anemia, unspecified (3) UTI (urinary tract infection), bacterial ICD Codes: N39.0 - Urinary tract infection, site not specified; A49.9 - Bacterial infection, unspecified SNOMED: 549113902 (4) Toxic metabolic encephalopathy ICD Codes: G92 - Toxic encephalopathy SNOMED: 722314852 (5) Aspiration pneumonia ICD Codes: J69.0 - Pneumonitis due to inhalation of food and vomit SNOMED: 658171099 (6) Encephalopathy ICD Codes: G93.40 - Encephalopathy, unspecified SNOMED: 77038221 (7) Sepsis ICD Codes: A41.9 - Sepsis, unspecified organism SNOMED: 30545321 Qualifiers: Qualified Codes: A41.9 - Sepsis, unspecified organism (8) Pneumonia ICD Codes: J18.9 - Pneumonia, unspecified organism SNOMED: 380726029 (9) Status epilepticus ICD Codes: G40.901 - Epilepsy, unspecified, not intractable, with status epilepticus SNOMED: 877597311 Status: stable, progressing Assessment/Plan: cont vent support resp rx gt feeds iv abx check labs transfuse as needed wound care sz rx dc planning Subjective ROS Limited/Unobtainable: Yes Constitutional: Reports: malaise, weakness HEENT: Reports: no symptoms Cardiovascular: Reports: no symptoms Respiratory: Reports: cough, shortness of breath Gastrointestinal/Abdominal: Reports: difficulty swallowing Genitourinary: Reports: no symptoms Neurologic/Psychiatric: Reports: pre-existing deficit, seizure Endocrine: Reports: no symptoms Hematologic/Lymphatic: Reports: anemia Allergies: Coded Allergies: No Known Allergies (Unverified , 01/27/17) All Systems: reviewed and negative except above Subjective no events. remains on the vent. poorly responsive. no szs. tolerating feeds. on wound care Objective Last 24 Hour Vital Signs Date Time Temp Pulse Resp B/P (MAP) Pulse Ox O2 Delivery O2 Flow Rate FiO2 02/03/19 13:25 98 26 40 02/03/19 12:00 95 02/03/19 12:00 98.4 100 26 136/71 (92) 100 02/03/19 12:00 40 02/03/19 12:00 Mechanical Ventilator 02/03/19 10:43 84 24 40 02/03/19 09:22 82 20 40 02/03/19 08:27 106 149/88 02/03/19 08:27 106 149/88 02/03/19 08:00 Mechanical Ventilator 02/03/19 08:00 102 02/03/19 08:00 40 02/03/19 08:00 99.4 106 22 149/88 (108) 100 02/03/19 07:17 106 24 40 02/03/19 05:15 102 24 40 02/03/19 04:00 Mechanical Ventilator 02/03/19 04:00 40 02/03/19 04:00 102 02/03/19 04:00 98.0 102 21 147/87 (107) 100 02/03/19 03:04 99 20 40 02/03/19 01:06 95 24 40 02/03/19 00:00 40 02/03/19 00:00 102 02/03/19 00:00 Mechanical Ventilator 02/03/19 00:00 97.9 102 22 138/71 (93) 100 02/02/19 23:05 100 22 40 02/02/19 20:56 102 25 40 02/02/19 20:55 102 25 100 Mechanical Ventilator 40 02/02/19 20:47 100 142/74 02/02/19 20:00 Mechanical Ventilator 02/02/19 20:00 98.1 100 22 142/74 (96) 100 02/02/19 20:00 100 02/02/19 20:00 40 02/02/19 19:01 100 23 40 02/02/19 17:20 97 25 40 02/02/19 16:00 97.0 97 22 136/71 (92) 100 02/02/19 16:00 40 02/02/19 16:00 98 02/02/19 16:00 Mechanical Ventilator 02/02/19 15:16 98 27 40 Intake and Output 02/02/19 02/03/19 19:00 07:00 Intake Total 1080 ml 1080 ml Output Total 850 ml 500 ml Balance 230 ml 580 ml Free Water 300 ml 300 ml Tube Feeding 780 ml 780 ml Output Urine Total 850 ml 500 ml Height (Feet): 5 Height (Inches): 5.00 Weight (Pounds): 127 Objective General Appearance: WD/WN, confused Neck: supple Cardiovascular: normal peripheral pulses, normal rate, regular rhythm Respiratory/Chest: chest wall non-tender, lungs clear, normal breath sounds, no respiratory distress Abdomen: normal bowel sounds, non tender, soft, no organomegaly Edema: no edema noted Arm (L), no edema noted Arm (R), no edema noted Leg (L), no edema noted Leg (R), no edema noted Pedal (L), no edema noted Pedal (R), no edema noted Generalized Neurologic: disoriented, unresponsive, aphasia Jarrod Vásquez MD Feb 03, 2019 15:10
[2019-02-03 16:00] VITALS: BP 148/85
[2019-02-03 16:04] LABS: BASOPHILS % (AUTO) 0.6 % (0.0-2.0); EOSINOPHILS % (AUTO) 4.8 % (0.0-3.0); HEMATOCRIT 28.2 % (42.0-52.0); LYMPHOCYTES % (AUTO) 7.4 % (20.0-45.0); MEAN CORPUSCULAR VOLUME 88 FL (80-99); MONOCYTES % (AUTO) 6.6 % (1.0-10.0); NEUTROPHILS % (AUTO) 80.6 % (45.0-75.0); PLATELET COUNT 576 K/UL (150-450); RED BLOOD COUNT 3.22 M/UL (4.70-6.10); RED CELL DISTRIBUTION WIDTH 17.8 % (11.6-14.8)
[2019-02-03 16:06] LABS: ANION GAP 6 mmol/L (5-15); BLOOD UREA NITROGEN 36 mg/dL (7-18); CALCIUM 9.5 MG/DL (8.5-10.1); CARBON DIOXIDE 31 MMOL/L (21-32); CHLORIDE 102 MMOL/L (98-107); CREATININE 0.5 MG/DL (0.55-1.30); POTASSIUM 4.2 MMOL/L (3.5-5.1); SODIUM 139 MMOL/L (136-145)
--- NOTE | 2019-02-03 16:31 | NUR ---
NURSE NOTES:WOUND CARE FOLLOW-UP NOTES:Pt deconditioned and unable to tolerate full assessment of wounds. Primary nurse assisted with wound care. No significant changes observed in wounds all present on admission. Tx.Plan: Cleanse wounds with Dakin's 0.125% segun. Loosely pack with dakin;s moist gauze. Apply Moisture Barrier paste to borders of each wound .Cover wounds with Optifoam drsgs Daily and prn. Reposition at least every 2hours or as tolerated. Off-load heels with Pillow. Place Pillow between knees . APM/NATASHA mattress overlay.
--- NOTE | 2019-02-03 18:03 | NUR ---
NURSE NOTES: Called and left message to Dr. Vásquez regarding elevated WBC. Awaiting for call back.
--- NOTE | 2019-02-03 18:54 | NUR ---
NURSE NOTES: Dr. Vásquez called back with new order regarding elevated WBC. Order carried out.
--- NOTE | 2019-02-03 18:57 | NUR ---
HAND-OFF: Report given to LALA Carson. Stable condition.
--- NOTE | 2019-02-03 19:15 | NUR ---
NURSE NOTES: Received patient from LALA RYAN. Patient is obtunded, on trach Portex 8 to vent with settings of AC:12, TV:500, FiO2:40%, PEEP:5 and O2:100%. Will continue plan of care.
[2019-02-03 20:00] VITALS: BP 151/85
--- NOTE | 2019-02-03 22:14 | General Progress Note ---
Assessment/Plan Status: stable, progressing Assessment/Plan: Assessment - anemia - Resp failure - cirrhotic change on imaging with negative Hep B/C markers - Elevated Alk phos - GT dependent Recommendations - continue TF - Decrease free water - check AFP - normal - follow Na - PPI - daily CBC - no plans for EGD per family directive Subjective Allergies: Coded Allergies: No Known Allergies (Unverified , 01/27/17) Subjective non communicative tolerating TF d/w RN Objective Last 24 Hour Vital Signs Date Time Temp Pulse Resp B/P (MAP) Pulse Ox O2 Delivery O2 Flow Rate FiO2 02/03/19 20:34 85 25 40 02/03/19 20:09 108 151/85 02/03/19 20:00 98.1 108 30 151/85 (107) 100 02/03/19 20:00 40 02/03/19 20:00 Mechanical Ventilator 02/03/19 19:24 104 02/03/19 19:20 104 30 40 02/03/19 16:54 103 27 40 02/03/19 16:00 98.2 104 26 148/85 (106) 100 02/03/19 16:00 40 02/03/19 16:00 Mechanical Ventilator 02/03/19 15:57 97 02/03/19 15:25 100 27 40 02/03/19 13:25 98 26 40 02/03/19 12:00 95 02/03/19 12:00 98.4 100 26 136/71 (92) 100 02/03/19 12:00 40 02/03/19 12:00 Mechanical Ventilator 02/03/19 10:43 84 24 40 02/03/19 09:22 82 20 40 02/03/19 08:27 106 149/88 02/03/19 08:27 106 149/88 02/03/19 08:00 Mechanical Ventilator 02/03/19 08:00 102 02/03/19 08:00 40 02/03/19 08:00 99.4 106 22 149/88 (108) 100 02/03/19 07:17 106 24 40 02/03/19 05:15 102 24 40 02/03/19 04:00 Mechanical Ventilator 02/03/19 04:00 40 02/03/19 04:00 102 02/03/19 04:00 98.0 102 21 147/87 (107) 100 02/03/19 03:04 99 20 40 02/03/19 01:06 95 24 40 02/03/19 00:00 40 02/03/19 00:00 102 02/03/19 00:00 Mechanical Ventilator 02/03/19 00:00 97.9 102 22 138/71 (93) 100 02/02/19 23:05 100 22 40 Intake and Output 02/02/19 02/03/19 19:00 07:00 Intake Total 1080 ml 1080 ml Output Total 850 ml 500 ml Balance 230 ml 580 ml Free Water 300 ml 300 ml Tube Feeding 780 ml 780 ml Output Urine Total 850 ml 500 ml Laboratory Tests 02/03/19 15:40: White Blood Count 15.0H, Red Blood Count 3.22L, Hemoglobin 9.0L, Hematocrit 28.2L, Mean Corpuscular Volume 88, Mean Corpuscular Hemoglobin 27.8, Mean Corpuscular Hemoglobin Concent 31.7L, Red Cell Distribution Width 17.8H, Platelet Count 576H, Mean Platelet Volume 5.0L, Neutrophils (%) (Auto) 80.6H, Lymphocytes (%) (Auto) 7.4L, Monocytes (%) (Auto) 6.6, Eosinophils (%) (Auto) 4.8H, Basophils (%) (Auto) 0.6, Sodium Level 139, Potassium Level 4.2, Chloride Level 102, Carbon Dioxide Level 31, Anion Gap 6, Blood Urea Nitrogen 36H, Creatinine 0.5L, Estimat Glomerular Filtration Rate , Glucose Level 138H, Calcium Level 9.5 Height (Feet): 5 Height (Inches): 5.00 Weight (Pounds): 127 Objective Frail AA man NCAT (+) Trach coarse BS RR abd soft, (+) GT contracted Oli Amaya MD Feb 03, 2019 22:14
[2019-02-04] VITALS: BP 148/70
--- NOTE | 2019-02-04 00:30 | Progress Note ---
DATE: 02/03/2019 CARDIOLOGY PROGRESS NOTE SUBJECTIVE: The patient is on ventilator support. Poorly responsive. No seizures. Tolerating feedings. Secretions have decreased. OBJECTIVE: VITAL SIGNS: Blood pressure 136/71, pulse rate 126, monitored sinus and sinus tachycardia. LUNGS: Coarse breath sounds and rhonchi. CARDIAC: Regular rhythm, rapid rate. Normal S1, S2. ABDOMEN: Soft. G-tube intact. EXTREMITIES: Trace edema. LABORATORY DATA: White count 15, hemoglobin 9. Potassium 4.2, BUN 36, creatinine 0.5. IMPRESSION AND PLAN: Increase in white count with tachycardia, may suggest a new infection. Clinically, no signs of acute congestive heart failure. He remains quite tenuous. Follow up lab studies should be ordered. Continue current beta-cr dosing for now. Trend natriuretic peptide assay. Jones Arauz M.D. DR: SUDHAKAR JOB#: [id number] CC:
[2019-02-04 04:00] VITALS: BP 142/74
[2019-02-04 05:00] LABS: BASOPHILS % (AUTO) 0.5 % (0.0-2.0); EOSINOPHILS % (AUTO) 4.8 % (0.0-3.0); HEMATOCRIT 28.9 % (42.0-52.0); HEMOGLOBIN 8.9 G/DL (14.2-18.0); LYMPHOCYTES % (AUTO) 11.9 % (20.0-45.0); MEAN CORPUSCULAR VOLUME 88 FL (80-99); MONOCYTES % (AUTO) 5.7 % (1.0-10.0); NEUTROPHILS % (AUTO) 77.1 % (45.0-75.0); PLATELET COUNT 599 K/UL (150-450); RED BLOOD COUNT 3.29 M/UL (4.70-6.10); RED CELL DISTRIBUTION WIDTH 18.3 % (11.6-14.8)
--- NOTE | 2019-02-04 06:55 | NUR ---
NURSE NOTES: Received report from LALA Carson. Observed patient in bed, opens eyes, nonverbal. On trach-vent with settings AC 12 TV500 FiO2 40% and PEEP 5. No acute respiratory distress noted. court monitor showing sinus rhythm at this time. GT feeding intact and patent with feeding infusing at prescribed rate. HOB elevated. Right forearm 24g intact and patent. Manzo catheter intact and draining well to gravity. Bed locked, lowered and alarmed, padded side rails up x3, and call light left within reach. No s/s of pain/discomfort at this time. Will continue with plan of care and monitor patient.
--- NOTE | 2019-02-04 07:05 | NUR ---
HAND-OFF: Report given to LALA De Jesus.
[2019-02-04] MEDS: Heparin 5000 units/ml inj SUBQ SCH ×2 (08:18→20:28)
[2019-02-04] MEDS: levETIRAcetam 500mg/5ml Liquid GT SCH ×2 (08:22→20:28)
[2019-02-04] MEDS: Metoprolol Tartrate 50mg tab GT SCH ×2 (08:22→20:28)
[2019-02-04] MEDS: Ascorbic Acid 500mg tab GT SCH (08:23)
[2019-02-04] MEDS: Dakin's 0.125% Soln (Quarter Strength) 16oz TOPIC SCH (08:27)
[2019-02-04 08:28] VITALS: BP 144/85
--- NOTE | 2019-02-04 08:50 | General Progress Note ---
Assessment/Plan Problem List: (1) Decubitus ulcer ICD Codes: L89.90 - Pressure ulcer of unspecified site, unspecified stage SNOMED: 888909923 Qualifiers: Qualified Codes: L89.94 - Pressure ulcer of unspecified site, stage 4 (2) Anemia ICD Codes: D64.9 - Anemia, unspecified SNOMED: 143788199 Qualifiers: Qualified Codes: D64.9 - Anemia, unspecified (3) UTI (urinary tract infection), bacterial ICD Codes: N39.0 - Urinary tract infection, site not specified; A49.9 - Bacterial infection, unspecified SNOMED: 737175429 (4) Toxic metabolic encephalopathy ICD Codes: G92 - Toxic encephalopathy SNOMED: 041601656 (5) Aspiration pneumonia ICD Codes: J69.0 - Pneumonitis due to inhalation of food and vomit SNOMED: 419839354 (6) Encephalopathy ICD Codes: G93.40 - Encephalopathy, unspecified SNOMED: 80817419 (7) Sepsis ICD Codes: A41.9 - Sepsis, unspecified organism SNOMED: 38400728 Qualifiers: Qualified Codes: A41.9 - Sepsis, unspecified organism (8) Pneumonia ICD Codes: J18.9 - Pneumonia, unspecified organism SNOMED: 476384106 (9) Status epilepticus ICD Codes: G40.901 - Epilepsy, unspecified, not intractable, with status epilepticus SNOMED: 901781925 Status: stable, progressing Assessment/Plan: cont vent support resp rx gt feeds check labs/cxr/urine transfuse as needed wound care sz rx dc planning if cleared by ID Subjective ROS Limited/Unobtainable: No Constitutional: Reports: fever, malaise, weakness HEENT: Reports: no symptoms Cardiovascular: Reports: no symptoms Respiratory: Reports: cough Gastrointestinal/Abdominal: Reports: difficulty swallowing Genitourinary: Reports: no symptoms Neurologic/Psychiatric: Reports: pre-existing deficit, seizure Endocrine: Reports: no symptoms Hematologic/Lymphatic: Reports: anemia Allergies: Coded Allergies: No Known Allergies (Unverified , 01/27/17) All Systems: reviewed and negative except above Subjective low grade fever. wbc up. no bleeding. no szs. remains poorly responsive on the vent. Objective Last 24 Hour Vital Signs Date Time Temp Pulse Resp B/P (MAP) Pulse Ox O2 Delivery O2 Flow Rate FiO2 02/04/19 08:28 99.0 106 28 144/85 (104) 100 02/04/19 08:23 109 144/68 02/04/19 08:22 109 144/68 02/04/19 08:00 Mechanical Ventilator 02/04/19 08:00 40 02/04/19 07:01 106 25 40 02/04/19 05:02 104 25 40 02/04/19 04:00 40 02/04/19 04:00 98.4 101 28 142/74 (96) 100 02/04/19 04:00 Mechanical Ventilator 02/04/19 03:25 102 02/04/19 03:10 100 25 40 02/04/19 00:39 93 24 40 02/04/19 00:00 97.5 90 25 148/70 (96) 100 02/04/19 00:00 Mechanical Ventilator 02/03/19 23:27 92 02/03/19 22:43 84 22 40 02/03/19 20:34 85 25 40 02/03/19 20:09 108 151/85 02/03/19 20:00 98.1 108 30 151/85 (107) 100 02/03/19 20:00 40 02/03/19 20:00 Mechanical Ventilator 02/03/19 19:24 104 02/03/19 19:20 104 30 40 02/03/19 16:54 103 27 40 02/03/19 16:00 98.2 104 26 148/85 (106) 100 02/03/19 16:00 40 02/03/19 16:00 Mechanical Ventilator 02/03/19 15:57 97 02/03/19 15:25 100 27 40 02/03/19 13:25 98 26 40 02/03/19 12:00 95 02/03/19 12:00 98.4 100 26 136/71 (92) 100 02/03/19 12:00 40 02/03/19 12:00 Mechanical Ventilator 02/03/19 10:43 84 24 40 02/03/19 09:22 82 20 40 Intake and Output 02/03/19 02/04/19 19:00 07:00 Intake Total 1140 ml 1080 ml Output Total 400 ml 650 ml Balance 740 ml 430 ml Free Water 360 ml 200 ml Tube Feeding 780 ml 780 ml Other 100 ml Output Urine Total 400 ml 650 ml Laboratory Tests 02/03/19 15:40: White Blood Count 15.0H, Red Blood Count 3.22L, Hemoglobin 9.0L, Hematocrit 28.2L, Mean Corpuscular Volume 88, Mean Corpuscular Hemoglobin 27.8, Mean Corpuscular Hemoglobin Concent 31.7L, Red Cell Distribution Width 17.8H, Platelet Count 576H, Mean Platelet Volume 5.0L, Neutrophils (%) (Auto) 80.6H, Lymphocytes (%) (Auto) 7.4L, Monocytes (%) (Auto) 6.6, Eosinophils (%) (Auto) 4.8H, Basophils (%) (Auto) 0.6, Sodium Level 139, Potassium Level 4.2, Chloride Level 102, Carbon Dioxide Level 31, Anion Gap 6, Blood Urea Nitrogen 36H, Creatinine 0.5L, Estimat Glomerular Filtration Rate , Glucose Level 138H, Calcium Level 9.5 02/04/19 03:40: White Blood Count 14.0H, Red Blood Count 3.29L, Hemoglobin 8.9L, Hematocrit 28.9L, Mean Corpuscular Volume 88, Mean Corpuscular Hemoglobin 27.1, Mean Corpuscular Hemoglobin Concent 30.9L, Red Cell Distribution Width 18.3H, Platelet Count 599H, Mean Platelet Volume 4.5L, Neutrophils (%) (Auto) 77.1H, Lymphocytes (%) (Auto) 11.9L, Monocytes (%) (Auto) 5.7, Eosinophils (%) (Auto) 4.8H, Basophils (%) (Auto) 0.5 Height (Feet): 5 Height (Inches): 5.00 Weight (Pounds): 126 Objective General Appearance: WD/WN, confused Neck: supple Cardiovascular: normal peripheral pulses, normal rate, regular rhythm Respiratory/Chest: chest wall non-tender, lungs clear, normal breath sounds, no respiratory distress Abdomen: normal bowel sounds, non tender, soft, no organomegaly Edema: no edema noted Arm (L), no edema noted Arm (R), no edema noted Leg (L), no edema noted Leg (R), no edema noted Pedal (L), no edema noted Pedal (R), no edema noted Generalized Neurologic: disoriented, unresponsive, aphasia Jarrod Vásquez MD Feb 04, 2019 08:50
--- NOTE | 2019-02-04 11:08 | Infectious Diseases Prog Note ---
Assessment/Plan Assessment/Plan antibiotics : none A 1. e.coli esbl UTI s/p rx 2. acenitobacter pneumonia s/p rx 3. respiratory failure 4. pulmonary TB s/p rx 5. leucocytosis improving 7. hypertension 8. anemia 9. seizures P 1. continue off antibiotics Subjective ROS Limited/Unobtainable: Yes Allergies: Coded Allergies: No Known Allergies (Unverified , 01/27/17) Objective Vital Signs Last 24 Hour Vital Signs Date Time Temp Pulse Resp B/P (MAP) Pulse Ox O2 Delivery O2 Flow Rate FiO2 02/04/19 09:21 84 24 40 02/04/19 08:28 99.0 106 28 144/85 (104) 100 02/04/19 08:23 109 144/68 02/04/19 08:22 109 144/68 02/04/19 08:00 Mechanical Ventilator 02/04/19 08:00 40 02/04/19 07:35 106 02/04/19 07:01 106 25 40 02/04/19 05:02 104 25 40 02/04/19 04:00 40 02/04/19 04:00 98.4 101 28 142/74 (96) 100 02/04/19 04:00 Mechanical Ventilator 02/04/19 03:25 102 02/04/19 03:10 100 25 40 02/04/19 00:39 93 24 40 02/04/19 00:00 97.5 90 25 148/70 (96) 100 02/04/19 00:00 Mechanical Ventilator 02/03/19 23:27 92 02/03/19 22:43 84 22 40 02/03/19 20:34 85 25 40 02/03/19 20:09 108 151/85 02/03/19 20:00 98.1 108 30 151/85 (107) 100 02/03/19 20:00 40 02/03/19 20:00 Mechanical Ventilator 02/03/19 19:24 104 02/03/19 19:20 104 30 40 02/03/19 16:54 103 27 40 02/03/19 16:00 98.2 104 26 148/85 (106) 100 02/03/19 16:00 40 02/03/19 16:00 Mechanical Ventilator 02/03/19 15:57 97 02/03/19 15:25 100 27 40 02/03/19 13:25 98 26 40 02/03/19 12:00 95 02/03/19 12:00 98.4 100 26 136/71 (92) 100 02/03/19 12:00 40 02/03/19 12:00 Mechanical Ventilator Height (Feet): 5 Height (Inches): 5.00 Weight (Pounds): 126 HEENT: status post trach Respiratory/Chest: lungs clear Cardiovascular: normal rate, regular rhythm, no gallop/murmur Abdomen: soft, non tender, other - GT Extremities: no edema Laboratory Tests Test 02/03/19 15:40 02/04/19 03:40 White Blood Count 15.0 K/UL (4.8-10.8) H 14.0 K/UL (4.8-10.8) H Red Blood Count 3.22 M/UL (4.70-6.10) L 3.29 M/UL (4.70-6.10) L Hemoglobin 9.0 G/DL (14.2-18.0) L 8.9 G/DL (14.2-18.0) L Hematocrit 28.2 % (42.0-52.0) L 28.9 % (42.0-52.0) L Mean Corpuscular Volume 88 FL (80-99) 88 FL (80-99) Mean Corpuscular Hemoglobin 27.8 PG (27.0-31.0) 27.1 PG (27.0-31.0) Mean Corpuscular Hemoglobin Concent 31.7 G/DL (32.0-36.0) L 30.9 G/DL (32.0-36.0) L Red Cell Distribution Width 17.8 % (11.6-14.8) H 18.3 % (11.6-14.8) H Platelet Count 576 K/UL (150-450) H 599 K/UL (150-450) H Mean Platelet Volume 5.0 FL (6.5-10.1) L 4.5 FL (6.5-10.1) L Neutrophils (%) (Auto) 80.6 % (45.0-75.0) H 77.1 % (45.0-75.0) H Lymphocytes (%) (Auto) 7.4 % (20.0-45.0) L 11.9 % (20.0-45.0) L Monocytes (%) (Auto) 6.6 % (1.0-10.0) 5.7 % (1.0-10.0) Eosinophils (%) (Auto) 4.8 % (0.0-3.0) H 4.8 % (0.0-3.0) H Basophils (%) (Auto) 0.6 % (0.0-2.0) 0.5 % (0.0-2.0) Sodium Level 139 MMOL/L (136-145) Potassium Level 4.2 MMOL/L (3.5-5.1) Chloride Level 102 MMOL/L (98-107) Carbon Dioxide Level 31 MMOL/L (21-32) Anion Gap 6 mmol/L (5-15) Blood Urea Nitrogen 36 mg/dL (7-18) H Creatinine 0.5 MG/DL (0.55-1.30) L Estimat Glomerular Filtration Rate mL/min (>60) Glucose Level 138 MG/DL (74-106) H Calcium Level 9.5 MG/DL (8.5-10.1) Current Medications Medications (Trade) Dose Ordered Sig/Iram Route PRN Reason Start Time Stop Time Status Last Admin Dose Admin Acetaminophen (Tylenol) 650 mg Q4H PRN NG fever 01/23/19 10:21 02/22/19 10:20 01/28/19 20:41 Acetaminophen/ Hydrocodone Bitart ([place] 10/325) 1 tab Q4H PRN GT For Pain 01/29/19 15:00 02/04/19 14:59 Amlodipine Besylate (Norvasc) 5 mg DAILY ORAL 01/30/19 09:00 03/01/19 08:59 02/04/19 08:23 Ascorbic Acid (Vitamin C) 500 mg DAILY GT 01/31/19 09:00 03/02/19 08:59 02/04/19 08:23 Heparin Sodium (Porcine) (Heparin 5000 units/ml) 5,000 units EVERY 12 HOURS SUBQ 01/30/19 09:00 03/01/19 08:59 02/04/19 08:18 Lansoprazole (Prevacid) 30 mg DAILY GT 01/29/19 09:00 02/28/19 08:59 02/04/19 08:23 Levetiracetam (Keppra) 750 mg Q12HR GT 01/23/19 10:21 02/22/19 10:20 02/04/19 08:22 Lorazepam (Ativan 2mg/ml 1ml) 1 mg Q1H PRN IV For Seizures 01/31/19 05:30 02/07/19 05:29 Metoprolol Tartrate (Lopressor) 50 mg Q12HR GT 01/25/19 09:00 02/24/19 08:59 02/04/19 08:22 Multivitamins (Multivitamins) 1 tab DAILY GT 01/31/19 09:00 03/02/19 08:59 02/04/19 08:22 Sodium Hypochlorite (Dakin's Quarter Strength) 1 applic DAILY TOPIC 01/25/19 09:00 02/23/19 17:59 02/04/19 08:27 Sergio Urban MD Feb 04, 2019 11:08
--- NOTE | 2019-02-04 11:31 | Diagnostic Imaging Report ---
APPROVED REPORT CPT Code: 84221 Present Symptoms Shortness of breath BILATERAL: Imaging reveals a patent deep venous system bilaterally. There is no evidence of thrombus within the femoral, popliteal or tibial segments. The greater saphenous veins are also within normal limits. Doppler indicates normal spontaneous flow within these segments.
[2019-02-04 12:00] VITALS: BP 152/79
--- NOTE | 2019-02-04 13:04 | Surgery Progress Note ---
Surgery Progress Note Subjective Additional Comments leukocytosis 14k. no acute events. exam stable and unchanged. Objective Last 24 Hour Vital Signs Date Time Temp Pulse Resp B/P (MAP) Pulse Ox O2 Delivery O2 Flow Rate FiO2 02/04/19 12:43 94 23 40 02/04/19 12:00 98.2 90 24 152/79 (103) 100 02/04/19 12:00 Mechanical Ventilator 02/04/19 12:00 40 02/04/19 11:36 91 02/04/19 11:26 90 24 40 02/04/19 09:21 84 24 40 02/04/19 08:28 99.0 106 28 144/85 (104) 100 02/04/19 08:23 109 144/68 02/04/19 08:22 109 144/68 02/04/19 08:00 Mechanical Ventilator 02/04/19 08:00 40 02/04/19 07:35 106 02/04/19 07:01 106 25 40 02/04/19 05:02 104 25 40 02/04/19 04:00 40 02/04/19 04:00 98.4 101 28 142/74 (96) 100 02/04/19 04:00 Mechanical Ventilator 02/04/19 03:25 102 02/04/19 03:10 100 25 40 02/04/19 00:39 93 24 40 02/04/19 00:00 97.5 90 25 148/70 (96) 100 02/04/19 00:00 Mechanical Ventilator 02/03/19 23:27 92 02/03/19 22:43 84 22 40 02/03/19 20:34 85 25 40 02/03/19 20:09 108 151/85 02/03/19 20:00 98.1 108 30 151/85 (107) 100 02/03/19 20:00 40 02/03/19 20:00 Mechanical Ventilator 02/03/19 19:24 104 02/03/19 19:20 104 30 40 02/03/19 16:54 103 27 40 02/03/19 16:00 98.2 104 26 148/85 (106) 100 02/03/19 16:00 40 02/03/19 16:00 Mechanical Ventilator 02/03/19 15:57 97 02/03/19 15:25 100 27 40 02/03/19 13:25 98 26 40 I&O Intake and Output 02/03/19 02/04/19 19:00 07:00 Intake Total 1140 ml 1080 ml Output Total 400 ml 650 ml Balance 740 ml 430 ml Free Water 360 ml 200 ml Tube Feeding 780 ml 780 ml Other 100 ml Output Urine Total 400 ml 650 ml Dressing: other Wound: other Drains: other Cardiovascular: RSR Respiratory: decreased breath sounds Abdomen: soft, present bowel sounds, non-distended Extremities: no cyanosis Laboratory Tests Test 02/03/19 15:40 02/04/19 03:40 White Blood Count 15.0 K/UL (4.8-10.8) H 14.0 K/UL (4.8-10.8) H Red Blood Count 3.22 M/UL (4.70-6.10) L 3.29 M/UL (4.70-6.10) L Hemoglobin 9.0 G/DL (14.2-18.0) L 8.9 G/DL (14.2-18.0) L Hematocrit 28.2 % (42.0-52.0) L 28.9 % (42.0-52.0) L Mean Corpuscular Volume 88 FL (80-99) 88 FL (80-99) Mean Corpuscular Hemoglobin 27.8 PG (27.0-31.0) 27.1 PG (27.0-31.0) Mean Corpuscular Hemoglobin Concent 31.7 G/DL (32.0-36.0) L 30.9 G/DL (32.0-36.0) L Red Cell Distribution Width 17.8 % (11.6-14.8) H 18.3 % (11.6-14.8) H Platelet Count 576 K/UL (150-450) H 599 K/UL (150-450) H Mean Platelet Volume 5.0 FL (6.5-10.1) L 4.5 FL (6.5-10.1) L Neutrophils (%) (Auto) 80.6 % (45.0-75.0) H 77.1 % (45.0-75.0) H Lymphocytes (%) (Auto) 7.4 % (20.0-45.0) L 11.9 % (20.0-45.0) L Monocytes (%) (Auto) 6.6 % (1.0-10.0) 5.7 % (1.0-10.0) Eosinophils (%) (Auto) 4.8 % (0.0-3.0) H 4.8 % (0.0-3.0) H Basophils (%) (Auto) 0.6 % (0.0-2.0) 0.5 % (0.0-2.0) Sodium Level 139 MMOL/L (136-145) Potassium Level 4.2 MMOL/L (3.5-5.1) Chloride Level 102 MMOL/L (98-107) Carbon Dioxide Level 31 MMOL/L (21-32) Anion Gap 6 mmol/L (5-15) Blood Urea Nitrogen 36 mg/dL (7-18) H Creatinine 0.5 MG/DL (0.55-1.30) L Estimat Glomerular Filtration Rate mL/min (>60) Glucose Level 138 MG/DL (74-106) H Calcium Level 9.5 MG/DL (8.5-10.1) Plan Problems: (1) HCAP (healthcare-associated pneumonia) (2) Decubitus ulcer Assessment & Plan: Pt presented on admission with multiple pressure injuries. Resolving pressure injury L occipital. Dry pink epithelial noted. Skin assessed under trach collar and no areas of concerns noted . R and L ears dry . Full thickness pressure injury with undermining thoracic spine . Base of wound 75% granular with 25% fibrinous slough. Mild odor noted.(L)8.5cm x (W)6.5cmx(D) 1cm, undermining clockwise 6-1 by 3cm @12o'clock. Full thickness pressure injury L trochanter. 100% mixed necrosis/slough at base of wound and undermined borders.Non-blanchable erythema with induration noted periwound. Mild odor noted .(L)3.5cm x (W)4.5cm. Resolving DTPI L ischium .Centrally wound is red and fluctuant .Bone is palpable. Black with red tinged indurated borders noted. (L) (L)4.4cm x (W) 3.2cm. Ful thickness pressure injury R Iliac with 10% velazquez slough centrally.90% granular.Edges adherent and flat. (L)3cm x (W)3.2cm x(D)0.2cm. No odor or exudate noted.Darker skin tone without fluctuance noted periwound. Full thickness pressure injury with undermining R trochanter. Base of wound 60^ beefy red with 40% velazquez slough.erythejma noted along borders. Small amt seropurulent exudate that is mildly odorous.(L)5.5cm x (W)6.6cm x (D)1.5cm, undermining clockwise 12-12 by 4.5cm @3o'clock. Full thickness pressure injury R ischium (L)4.2cm x (W)5.5cm x(D)1.6cm, undermining 12-12 by 1.8cm @12o'clock .Base of wound 60% granular ,40% velazquez slough undermined borders.Wound has mild odor with small amt seropurulent exudate.darker skin tone that is indurated periwound. Resolving pressure injury sacrum . Base of wound dry with pink epithelial.with scattered shearing within base of wound. L heel boggy with non-blanchable erythema. DTPI R heel and Lateral aspect .Base of wound is maroon with fluctuance. (L) 4.5cm x (W)7.3cm. Tx.Plan. Cleanse wounds Thoracic and lumbar spine with Dakin's 0.125% segun. Pack with Dakin's moist gauze. Apply Moisture Barrier Paste periwound. Cover each wound with Optifoam drsg.Twice Daily and prn. Cleanse wound L trochanter and L ischium with Dakin's 0.125% segun. Pack with Dakin's moist Gauze.Apply Moisture Barrier paste periwound. Cover with Optifoam drsg. Twice daily and prn. Cleanse wounds R iliac ,R trochanter,R ischium with Dakin's 0.125% segun. Pack with Dakin's moist gauze. Apply Moisture Barrier Paste periwound. Cover with Optifoam drsg Twice daily and prn. Apply Moisture Barrier paste to sacrum. Cover with Optifoam drsg. Change every 3 days and prn. Apply Cavilon Skin Barrier to Both heels. Cover each heel with Optifoam drsg. Change every 7 days and prn. Air Fluidized Mattress. Reposition at least every 2hours or as tolerated. Off-load heels with pillow. Spoke with family. I explained to them that his condition has been deteriorating for some time now. i have seen him in the past and during each admission his wounds are deteriorating despite best efforts at care. He has received adequate nutritional support/supplementation, adequate wound care, and appropriate prevention while in hospital during each admission but wounds continue to deteriorate. they expressed understanding. cont with current care plan (3) Anemia (4) UTI (urinary tract infection), bacterial (5) Toxic metabolic encephalopathy (6) Dementia (7) Dyspnea (8) Respiratory distress (9) Hyperlipidemia (10) Aspiration pneumonia (11) Aspiration pneumonia (12) Vitamin B 12 deficiency Assessment & Plan: DAILY ESTIMATED NEEDS: Needs based on Underweight, TF [employer], Cachetic, Critical care, wounds/49.5kg 30-40 kcals/kg 5451-9829 total kcals 1.5-2 g protein/kg 74-99 g total protein 25-30 mL/kg 3680-2724 total fluid mLs NUTRITION DIAGNOSIS: 1) Swallowing difficulty r/t dysphagia, respiratory status as evidenced by pt is PEG dep, trach/vent dep. . 2) Increased kcal/prot needs R/T underweight status w/ wasting, and wound healing as evidenced by low BMI under guidelines, noted w/ severe generalized wasting, pt w/ multiple advanced wounds, pending eval ENTERAL NUTRITION RECOMMENDATIONS: Vital AF 1.2 @ 65ml/hr x 24 hrs to provide 1560ml, 1872kcal, 117g prot, 1265ml free water - Maintain Vital AF 1.2 @ 65ml/hr as tolerated - Meets 100% est kcal and protein needs. - HOB over 30 degrees/ water flush per MD ADDITIONAL RECOMMENDATIONS: 1) WOUND HEALING: add Vit C 500mg BID, Edgard 1pkt BID 2) RECALIBRATE BED SCALE FOR ACCURATE CBW + weekly wt monitoring given underweight status 3) Check lytes daily, replete as needed - (Low K, mg) 4) Continue to maintain calibrated bed scale wts (13) Encephalopathy (14) Sepsis Assessment & Plan: Leukocytosis resolved cont with IV fluids Cont with IV abx as per ID CXR noted labs noted Thank you for this consultation we will follow with recommendations (15) Pneumonia (16) Status epilepticus (17) HTN (hypertension) (18) Encephalopathy acute (19) BPH (benign prostatic hyperplasia) (20) Abnormal LFTs (21) Probable sepsis (2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 (23) Zev Mchugh Feb 04, 2019 13:04
--- NOTE | 2019-02-04 15:11 | NUR ---
CASE MANAGEMENT:REVIEW 02/04/19 SI: AC/CHR RENAL FAILURE. POSSIBLE SEPSIS PULMONARY TUBERCULOSIS. TRACH 99.0 106 28 144/85 100% ON VENT SUPPORT W/40% FIO2 WBC+14.0 H/H-8.9/28.9 IS: NORVASC GT QD HEPARIN SQ Q12 PREVACID GT QD LOPRESSOR GT Q12 KEPPRA GT Q12 : STEP DOWN UNIT DCP: FROM [facility] [place]
--- NOTE | 2019-02-04 15:24 | NUR ---
DISCHARGE PLANNING CLINICALS FAXED TO [facility] T: [phone] F: [phone] HOPE TO DISCHARGE TOMORROW
--- NOTE | 2019-02-04 15:53 | General Progress Note ---
Assessment/Plan Status: stable, progressing Assessment/Plan: Assessment - anemia - Resp failure - cirrhotic change on imaging with negative Hep B/C markers - Elevated Alk phos - GT dependent Recommendations - continue TF - Decrease free water - check AFP - normal - follow Na - PPI - daily CBC - no plans for EGD per family directive Subjective Allergies: Coded Allergies: No Known Allergies (Unverified , 01/27/17) Subjective non communicative tolerating TF d/w RN Objective Last 24 Hour Vital Signs Date Time Temp Pulse Resp B/P (MAP) Pulse Ox O2 Delivery O2 Flow Rate FiO2 02/04/19 14:54 101 23 40 02/04/19 12:43 94 23 40 02/04/19 12:00 98.2 90 24 152/79 (103) 100 02/04/19 12:00 Mechanical Ventilator 02/04/19 12:00 40 02/04/19 11:36 91 02/04/19 11:26 90 24 40 02/04/19 09:21 84 24 40 02/04/19 08:28 99.0 106 28 144/85 (104) 100 02/04/19 08:23 109 144/68 02/04/19 08:22 109 144/68 02/04/19 08:00 Mechanical Ventilator 02/04/19 08:00 40 02/04/19 07:35 106 02/04/19 07:01 106 25 40 02/04/19 05:02 104 25 40 02/04/19 04:00 40 02/04/19 04:00 98.4 101 28 142/74 (96) 100 02/04/19 04:00 Mechanical Ventilator 02/04/19 03:25 102 02/04/19 03:10 100 25 40 02/04/19 00:39 93 24 40 02/04/19 00:00 97.5 90 25 148/70 (96) 100 02/04/19 00:00 Mechanical Ventilator 02/03/19 23:27 92 02/03/19 22:43 84 22 40 02/03/19 20:34 85 25 40 02/03/19 20:09 108 151/85 02/03/19 20:00 98.1 108 30 151/85 (107) 100 02/03/19 20:00 40 02/03/19 20:00 Mechanical Ventilator 02/03/19 19:24 104 02/03/19 19:20 104 30 40 02/03/19 16:54 103 27 40 02/03/19 16:00 98.2 104 26 148/85 (106) 100 02/03/19 16:00 40 02/03/19 16:00 Mechanical Ventilator 02/03/19 15:57 97 Intake and Output 02/03/19 02/04/19 19:00 07:00 Intake Total 1140 ml 1080 ml Output Total 400 ml 650 ml Balance 740 ml 430 ml Free Water 360 ml 200 ml Tube Feeding 780 ml 780 ml Other 100 ml Output Urine Total 400 ml 650 ml Laboratory Tests 02/04/19 03:40: White Blood Count 14.0H, Red Blood Count 3.29L, Hemoglobin 8.9L, Hematocrit 28.9L, Mean Corpuscular Volume 88, Mean Corpuscular Hemoglobin 27.1, Mean Corpuscular Hemoglobin Concent 30.9L, Red Cell Distribution Width 18.3H, Platelet Count 599H, Mean Platelet Volume 4.5L, Neutrophils (%) (Auto) 77.1H, Lymphocytes (%) (Auto) 11.9L, Monocytes (%) (Auto) 5.7, Eosinophils (%) (Auto) 4.8H, Basophils (%) (Auto) 0.5 Height (Feet): 5 Height (Inches): 5.00 Weight (Pounds): 126 Objective Frail AA man NCAT (+) Trach coarse BS RR abd soft, (+) GT contracted Oli Amaya MD Feb 04, 2019 15:53
[2019-02-04 16:00] VITALS: BP 133/69
--- NOTE | 2019-02-04 16:26 | Pulmonology Progress Note ---
Assessment/Plan Assessment/Plan Pulmonary CCM Progress Note Assessment/Plan ASSESSMENT: toxic metabolic encephalopathy, history of stroke, chronic respiratory failure, hyponatremia, acute on chronic renal failure, chronic encephalopathy, seizure disorder, pulmonary tuberculosis, and anemia possible sepsis, leukocytosis H/H stable PLAN care noted TB meds TFN PRN IV antibiotics respiratory care Ventilatory support- no wean SNF meds noted supportive care as is suction as needed oxygen therapy nursing notes reviewed care noted and discussed prognosis poor overall all cultures and oracle drm consultant notes reviewed impression, plan, and exam edited and reviewed in detail care discussed with RN Subjective ROS Limited/Unobtainable: Yes Allergies: Coded Allergies: No Known Allergies Subjective on vent poor loc Objective Vital Signs Noted Objective GENERAL APPEARANCE: The patient is a chronically ill-appearing male, in no apparent distress. unresponsive. NECK: Supple. Trach site is clean, dry, and intact. CARDS: RRR without MRG LUNGS: occasional rhonchi. moderate air entry; no wheeze ABDOMEN: Soft, nontender, and nondistended. GT EXTREMITIES: No clubbing or cyanosis. reduced skin turgor multiple decubitus NEURO: obtunded Laboratory Tests 01/26/19 03:00: White Blood Count 15.1H, Red Blood Count 2.58L, Hemoglobin 6.8*L, Hematocrit 22.1L, Mean Corpuscular Volume 86, Mean Corpuscular Hemoglobin 26.2L, Mean Corpuscular Hemoglobin Concent 30.5L, Red Cell Distribution Width 21.2H, Platelet Count 287, Mean Platelet Volume 4.3L, Neutrophils (%) (Auto) , Lymphocytes (%) (Auto) , Monocytes (%) (Auto) , Eosinophils (%) (Auto) , Basophils (%) (Auto) , Neutrophils % (Manual) [Pending], Lymphocytes % (Manual) [Pending], Platelet Estimate [Pending], Platelet Morphology [Pending], Vancomycin Level Trough 10.2 Current Medications Medications (Trade) Dose Ordered Sig/Iram Route PRN Reason Start Time Stop Time Status Last Admin Dose Admin Acetaminophen (Tylenol) 650 mg Q4H PRN NG fever 01/23/19 10:21 02/22/19 10:20 01/25/19 08:14 Acetaminophen/ Hydrocodone Bitart ([place] 10/325) 1 tab Q4H PRN ORAL For Pain 01/23/19 15:45 01/30/19 15:44 01/26/19 01:45 Albuterol/ Ipratropium (Albuterol/ Ipratropium) 3 ml Q6HRT HHN 01/23/19 13:00 01/28/19 12:59 01/26/19 07:34 Ascorbic Acid (Vitamin C) 500 mg BID GT 01/23/19 11:00 02/22/19 10:59 01/25/19 17:02 Famotidine (Pepcid) 20 mg BID GT 01/23/19 10:21 02/22/19 10:20 01/25/19 17:02 Heparin Sodium (Porcine) (Heparin 5000 units/ml) 5,000 units EVERY 12 HOURS SUBQ 01/23/19 21:00 02/22/19 20:59 01/25/19 21:06 Levetiracetam (Keppra) 750 mg Q12HR GT 01/23/19 10:21 02/22/19 10:20 01/25/19 21:07 Metoprolol Tartrate (Lopressor) 50 mg Q12HR GT 01/25/19 09:00 02/24/19 08:59 01/25/19 21:06 Piperacillin Sod/ Tazobactam Sod 3.375 gm/Sodium Chloride 110 ml @ 27.5 mls/hr EVERY 8 HOURS IVPB 01/23/19 06:00 01/28/19 05:59 01/26/19 05:14 Sodium Hypochlorite (Dakin's Quarter Strength) 1 applic DAILY TOPIC 01/25/19 09:00 02/23/19 17:59 01/25/19 08:14 Sodium Chloride 1,000 ml @ 75 mls/hr [id number] IV 01/26/19 02:45 02/25/19 02:44 01/26/19 03:02 Vancomycin HCl (Vanco rx to dose) 1 ea DAILY PRN MISC Per rx protocol 01/23/19 02:45 02/22/19 02:44 Vancomycin HCl 1.25 gm/Dextrose 275 ml @ 183.333 mls/hr Q24H IVPB 01/26/19 06:00 01/31/19 05:59 01/26/19 05:14 Subjective ROS Limited/Unobtainable: No Allergies: Coded Allergies: No Known Allergies (Unverified , 01/27/17) Objective Last 24 Hour Vital Signs Date Time Temp Pulse Resp B/P (MAP) Pulse Ox O2 Delivery O2 Flow Rate FiO2 02/04/19 16:00 Mechanical Ventilator 02/04/19 16:00 98.4 101 24 133/69 (90) 100 02/04/19 16:00 40 02/04/19 14:54 101 23 40 02/04/19 12:43 94 23 40 02/04/19 12:00 98.2 90 24 152/79 (103) 100 02/04/19 12:00 Mechanical Ventilator 02/04/19 12:00 40 02/04/19 11:36 91 02/04/19 11:26 90 24 40 02/04/19 09:21 84 24 40 02/04/19 08:28 99.0 106 28 144/85 (104) 100 02/04/19 08:23 109 144/68 02/04/19 08:22 109 144/68 02/04/19 08:00 Mechanical Ventilator 02/04/19 08:00 40 02/04/19 07:35 106 02/04/19 07:01 106 25 40 02/04/19 05:02 104 25 40 02/04/19 04:00 40 02/04/19 04:00 98.4 101 28 142/74 (96) 100 02/04/19 04:00 Mechanical Ventilator 02/04/19 03:25 102 02/04/19 03:10 100 25 40 02/04/19 00:39 93 24 40 02/04/19 00:00 97.5 90 25 148/70 (96) 100 02/04/19 00:00 Mechanical Ventilator 02/03/19 23:27 92 02/03/19 22:43 84 22 40 02/03/19 20:34 85 25 40 02/03/19 20:09 108 151/85 02/03/19 20:00 98.1 108 30 151/85 (107) 100 02/03/19 20:00 40 02/03/19 20:00 Mechanical Ventilator 02/03/19 19:24 104 02/03/19 19:20 104 30 40 02/03/19 16:54 103 27 40 Intake and Output 02/03/19 02/04/19 19:00 07:00 Intake Total 1140 ml 1080 ml Output Total 400 ml 650 ml Balance 740 ml 430 ml Free Water 360 ml 200 ml Tube Feeding 780 ml 780 ml Other 100 ml Output Urine Total 400 ml 650 ml Laboratory Tests 02/04/19 03:40: White Blood Count 14.0H, Red Blood Count 3.29L, Hemoglobin 8.9L, Hematocrit 28.9L, Mean Corpuscular Volume 88, Mean Corpuscular Hemoglobin 27.1, Mean Corpuscular Hemoglobin Concent 30.9L, Red Cell Distribution Width 18.3H, Platelet Count 599H, Mean Platelet Volume 4.5L, Neutrophils (%) (Auto) 77.1H, Lymphocytes (%) (Auto) 11.9L, Monocytes (%) (Auto) 5.7, Eosinophils (%) (Auto) 4.8H, Basophils (%) (Auto) 0.5 Current Medications Medications (Trade) Dose Ordered Sig/Iram Route PRN Reason Start Time Stop Time Status Last Admin Dose Admin Acetaminophen (Tylenol) 650 mg Q4H PRN NG fever 01/23/19 10:21 02/22/19 10:20 01/28/19 20:41 Amlodipine Besylate (Norvasc) 5 mg DAILY ORAL 01/30/19 09:00 03/01/19 08:59 02/04/19 08:23 Ascorbic Acid (Vitamin C) 500 mg DAILY GT 01/31/19 09:00 03/02/19 08:59 02/04/19 08:23 Heparin Sodium (Porcine) (Heparin 5000 units/ml) 5,000 units EVERY 12 HOURS SUBQ 01/30/19 09:00 03/01/19 08:59 02/04/19 08:18 Lansoprazole (Prevacid) 30 mg DAILY GT 01/29/19 09:00 02/28/19 08:59 02/04/19 08:23 Levetiracetam (Keppra) 750 mg Q12HR GT 01/23/19 10:21 02/22/19 10:20 02/04/19 08:22 Lorazepam (Ativan 2mg/ml 1ml) 1 mg Q1H PRN IV For Seizures 01/31/19 05:30 02/07/19 05:29 Metoprolol Tartrate (Lopressor) 50 mg Q12HR GT 01/25/19 09:00 02/24/19 08:59 02/04/19 08:22 Multivitamins (Multivitamins) 1 tab DAILY GT 01/31/19 09:00 03/02/19 08:59 02/04/19 08:22 Sodium Hypochlorite (Dakin's Quarter Strength) 1 applic DAILY TOPIC 01/25/19 09:00 02/23/19 17:59 02/04/19 08:27 Jones Rasmussen MD Feb 04, 2019 16:26
[2019-02-04 17:41] LABS: APPEARANCE,URINE CLOUDY; BILIRUBIN, URINE NEGATIVE (NEGATIVE); GLUCOSE, URINE (UA) NEGATIVE (NEGATIVE); KETONES,URINE NEGATIVE (NEGATIVE); LEUKOCYTE ESTERASE ,URINE 3+ (NEGATIVE); NITRITE,URINE NEGATIVE (NEGATIVE); PH,URINE 6.5 (4.5-8.0); PROTEIN,URINE 2+ (NEGATIVE); UROBILINOGEN,URINE 4 MG/DL (0.0-1.0)
[2019-02-04 17:45] LABS: COLOR,URINE YELLOW
--- NOTE | 2019-02-04 18:55 | NUR ---
HAND-OFF: Report given to LALA Kim. Patient in stable condition.
--- NOTE | 2019-02-04 18:58 | NUR ---
NURSE NOTES: Received report from LALA De Jesus. Patient seen in bed in semi position. Patient is non verbal. No S/Sx of pain noted via FLACC scale. On vent with setting of portex 7, AC12, TV 500, fi02 40%, PEEP 5. Sp02 is 99%. Noted with GT with feeding of vital AF 1/2 at 65cc/hr. tolerating well. On mcintyre cath and urine is draining. IV site noted to right FA 24G and is intact. Bed is in lowest position. Call light is within easy reach whiled in bed. Will continue to monitor.
[2019-02-04 19:57] VITALS: BP 151/74
[2019-02-04] MEDS: Acetaminophen 650mg/20.3ml NG PRN (20:38)
--- NOTE | 2019-02-04 21:19 | NUR ---
Trach was changed due to a busted cuff. Same trach size in place Portex 7 cuffed. Old trach was inspected and a small hole was found on the right side of the cuff. Massive loss of VT was present prior to the change. RN and Charge Nurse was aware and notified. No resp distress noted. Family member was advised and present the whole time. Volumes are back to normal. HR 88, SPO2 100%, RR 21 with 40% FIO2.
[2019-02-05] VITALS: BP 148/76
[2019-02-05] MEDS ORDERED: Fluconazole 100mg tab ORAL ONE
--- NOTE | 2019-02-05 00:45 | Progress Note ---
DATE: 02/04/2019 CARDIOLOGY PROGRESS NOTE SUBJECTIVE: The patient remains on ventilator support and poorly responsive. He is off antimicrobials. He has had low-grade fevers and rising white count over the past 2 days. He has a G-tube for nutrition. Monitored rhythm sinus and sinus tachycardia. OBJECTIVE: LUNGS: Coarse breath sounds. CARDIAC: Regular rhythm, rate. Normal S1, S2. ABDOMEN: Soft with G-tube. EXTREMITIES: No edema. LABORATORY DATA: White count 14, hemoglobin 8.9. Urinalysis today reveals too numerous to count white cells. Potassium is 4.2, BUN 36, creatinine 0.5. IMPRESSION: 1. Fungal UTI. 2. Toxic encephalopathy. 3. Metabolic encephalopathy. 4. Advanced dementia. 5. Chronic diastolic congestive heart failure. 6. Secondary sinus tachycardia. PLAN: 1. Antifungal therapy. 2. May need to change Manzo. 3. Ventilator support. 4. Continue beta-cr without change. Jones Arauz M.D. DR: RAUL JOB#: [id number] CC:
--- NOTE | 2019-02-05 01:00 | NUR ---
RESPIRATORY NOTE: Received pt on AC 12, 500VT, 40%, PEEP +5. Pt is trach-dependent w/ a cuffed, Portex 8 tube. Pt asleep/flat effect. B/S betsy. rhonchi, sxn small to moderate amounts of thick, singer-yellow secretions. Vent plugged into red outlet, ambubag at bedside. Pt in no apparent distress at this time. Will continue plan of care. Addendum: 02/05/19 at 0101 by СЕРГЕЙ SALEEM RT Pt has a cuffed, Portex 7 tube.
[2019-02-05 04:00] VITALS: BP 143/80
--- NOTE | 2019-02-05 07:12 | NUR ---
HAND-OFF: Report given to LALA Barragan.
--- NOTE | 2019-02-05 07:14 | NUR ---
NURSE NOTES: Received bedside report from Tramaine REEVES. Pt. in bed eyes open, non-verbal. No sign of distress. Pt. is trach dependent with cuffed, Portex 7 tube with setting of AC 12, 500VT, FiO2 of 40%, PEEP +5. No grimacing noted. IV site at right FA #20g. in placed SL. HOB elevated at all times. On GTF in placed running Vital AF 1.2 @65cc/hr. Tolerating well. F/C in placed draining yellow colored urine. Bed in low position, locked. Call light within reach. Will cont. to monitor.
[2019-02-05 08:00] VITALS: BP 153/76
[2019-02-05] MEDS: Heparin 5000 units/ml inj SUBQ SCH (08:36)
[2019-02-05] MEDS: Ascorbic Acid 500mg tab GT SCH (08:37)
[2019-02-05] MEDS: levETIRAcetam 500mg/5ml Liquid GT SCH (08:37)
[2019-02-05] MEDS: Metoprolol Tartrate 50mg tab GT SCH (08:37)
[2019-02-05] MEDS: Dakin's 0.125% Soln (Quarter Strength) 16oz TOPIC SCH (08:38)
[2019-02-05] MEDS ORDERED: Fluconazole 100mg tab ORAL SCH (09:00)
--- NOTE | 2019-02-05 10:27 | NUR ---
DISCHARGE PLANNING: NOTE DC ORDER NOTED. [facility] IS ACCEPTING THIS PATIENT TO [facility] [place]. AWAITING ROOM NUMBER. CLINICALS FAXED. SDU MADE AWARE CM IS WORKING ON DC.
[2019-02-05 10:45] LABS: BASOPHILS % (AUTO) 1.4 % (0.0-2.0); EOSINOPHILS % (AUTO) 3.8 % (0.0-3.0); HEMATOCRIT 29.5 % (42.0-52.0); HEMOGLOBIN 9.2 G/DL (14.2-18.0); LYMPHOCYTES % (AUTO) 10.1 % (20.0-45.0); MEAN CORPUSCULAR VOLUME 87 FL (80-99); MONOCYTES % (AUTO) 6.9 % (1.0-10.0); NEUTROPHILS % (AUTO) 77.8 % (45.0-75.0); PLATELET COUNT 648 K/UL (150-450); RED BLOOD COUNT 3.39 M/UL (4.70-6.10); RED CELL DISTRIBUTION WIDTH 19.9 % (11.6-14.8); WHITE BLOOD COUNT 15.6 K/UL (4.8-10.8)
--- NOTE | 2019-02-05 10:48 | Infectious Diseases Prog Note ---
Assessment/Plan Assessment/Plan antibiotics : fluconazole A 1. fungal UTI 2. acenitobacter pneumonia s/p rx 3. respiratory failure 4. pulmonary TB s/p rx 5. leucocytosis improving 7. hypertension 8. anemia 9. seizures P 1. fluconazole started, continue 6 more days 2. will follow up cultures Subjective ROS Limited/Unobtainable: Yes Allergies: Coded Allergies: No Known Allergies (Unverified , 01/27/17) Objective Vital Signs Last 24 Hour Vital Signs Date Time Temp Pulse Resp B/P (MAP) Pulse Ox O2 Delivery O2 Flow Rate FiO2 02/05/19 08:44 108 24 40 02/05/19 08:38 104 153/76 02/05/19 08:37 104 153/76 02/05/19 08:00 99.3 104 21 153/76 (101) 100 02/05/19 08:00 40 02/05/19 08:00 Mechanical Ventilator 02/05/19 07:31 104 02/05/19 07:13 104 21 40 02/05/19 05:07 103 22 40 02/05/19 04:00 Mechanical Ventilator 02/05/19 04:00 98.1 104 25 143/80 (101) 100 02/05/19 04:00 40 02/05/19 03:43 102 02/05/19 02:55 102 21 40 02/05/19 00:58 100 22 40 02/05/19 00:00 Mechanical Ventilator 02/05/19 00:00 98.0 104 26 148/76 (100) 100 02/04/19 23:34 96 02/04/19 23:11 94 21 40 02/04/19 21:13 87 24 40 02/04/19 20:28 108 151/74 02/04/19 20:00 Mechanical Ventilator 02/04/19 20:00 40 02/04/19 19:57 97.8 108 25 151/74 (99) 100 02/04/19 19:21 105 21 40 02/04/19 19:07 102 02/04/19 17:28 100 20 40 02/04/19 16:00 Mechanical Ventilator 02/04/19 16:00 98.4 101 24 133/69 (90) 100 02/04/19 16:00 40 02/04/19 15:21 101 02/04/19 14:54 101 23 40 02/04/19 12:43 94 23 40 02/04/19 12:00 98.2 90 24 152/79 (103) 100 02/04/19 12:00 Mechanical Ventilator 02/04/19 12:00 40 02/04/19 11:36 91 02/04/19 11:26 90 24 40 Height (Feet): 5 Height (Inches): 5.00 Weight (Pounds): 126 HEENT: status post trach Respiratory/Chest: lungs clear Cardiovascular: normal rate, regular rhythm, no gallop/murmur Abdomen: soft, non tender, other - GT Extremities: no edema Laboratory Tests Test 02/04/19 17:00 02/05/19 10:30 Urine Color Yellow Urine Appearance Cloudy Urine pH 6.5 (4.5-8.0) Urine Specific [place] 1.005 (1.005-1.035) Urine Protein 2+ (NEGATIVE) H Urine Glucose (UA) Negative (NEGATIVE) Urine Ketones Negative (NEGATIVE) Urine Blood 2+ (NEGATIVE) H Urine Nitrite Negative (NEGATIVE) Urine Bilirubin Negative (NEGATIVE) Urine Urobilinogen 4 MG/DL (0.0-1.0) H Urine Leukocyte Esterase 3+ (NEGATIVE) H Urine RBC 5-10 /HPF (0 - 0) H Urine WBC Tntc /HPF (0 - 0) H Urine Squamous Epithelial Cells None /LPF (NONE/OCC) Urine Bacteria Few /HPF (NONE) Urine Yeast Moderate /HPF (NONE) H White Blood Count Pending Red Blood Count Pending Hemoglobin Pending Hematocrit Pending Mean Corpuscular Volume Pending Mean Corpuscular Hemoglobin Pending Mean Corpuscular Hemoglobin Concent Pending Red Cell Distribution Width Pending Platelet Count Pending Mean Platelet Volume Pending Neutrophils (%) (Auto) Pending Lymphocytes (%) (Auto) Pending Monocytes (%) (Auto) Pending Eosinophils (%) (Auto) Pending Basophils (%) (Auto) Pending Sodium Level Pending Potassium Level Pending Chloride Level Pending Carbon Dioxide Level Pending Blood Urea Nitrogen Pending Creatinine Pending Estimat Glomerular Filtration Rate Pending Glucose Level Pending Calcium Level Pending Total Bilirubin Pending Aspartate Amino Transf (AST/SGOT) Pending Alanine Aminotransferase (ALT/SGPT) Pending Alkaline Phosphatase Pending Total Protein Pending Albumin Pending Globulin Pending Current Medications Medications (Trade) Dose Ordered Sig/Iram Route PRN Reason Start Time Stop Time Status Last Admin Dose Admin Acetaminophen (Tylenol) 650 mg Q4H PRN NG fever 01/23/19 10:21 02/22/19 10:20 02/04/19 20:38 Amlodipine Besylate (Norvasc) 5 mg DAILY ORAL 01/30/19 09:00 03/01/19 08:59 02/05/19 08:38 Ascorbic Acid (Vitamin C) 500 mg DAILY GT 01/31/19 09:00 03/02/19 08:59 02/05/19 08:37 Fluconazole (Diflucan) 100 mg DAILY ORAL 02/05/19 09:00 02/12/19 08:59 02/05/19 08:38 Heparin Sodium (Porcine) (Heparin 5000 units/ml) 5,000 units EVERY 12 HOURS SUBQ 01/30/19 09:00 03/01/19 08:59 02/05/19 08:36 Lansoprazole (Prevacid) 30 mg DAILY GT 01/29/19 09:00 02/28/19 08:59 02/05/19 08:37 Levetiracetam (Keppra) 750 mg Q12HR GT 01/23/19 10:21 02/22/19 10:20 02/05/19 08:37 Lorazepam (Ativan 2mg/ml 1ml) 1 mg Q1H PRN IV For Seizures 01/31/19 05:30 02/07/19 05:29 Metoprolol Tartrate (Lopressor) 50 mg Q12HR GT 01/25/19 09:00 02/24/19 08:59 02/05/19 08:37 Multivitamins (Multivitamins) 1 tab DAILY GT 01/31/19 09:00 03/02/19 08:59 02/05/19 08:37 Sodium Hypochlorite (Dakin's Quarter Strength) 1 applic DAILY TOPIC 01/25/19 09:00 02/23/19 17:59 02/05/19 08:38 Sergio Urban MD Feb 05, 2019 10:48
[2019-02-05 10:56] LABS: ALANINE AMINOTRANSFERASE 15 U/L (12-78); ALBUMIN 1.5 G/DL (3.4-5.0); ALBUMIN/GLOBULIN RATIO 0.2 (1.0-2.7); ALKALINE PHOSPHATASE 534 U/L (46-116); ANION GAP 6 mmol/L (5-15); ASPARTATE AMINO TRANSFERASE 34 U/L (15-37); BILIRUBIN,TOTAL 0.5 MG/DL (0.2-1.0); BLOOD UREA NITROGEN 39 mg/dL (7-18); CALCIUM 9.5 MG/DL (8.5-10.1); CARBON DIOXIDE 32 MMOL/L (21-32); CHLORIDE 106 MMOL/L (98-107); CREATININE 0.6 MG/DL (0.55-1.30); POTASSIUM 3.9 MMOL/L (3.5-5.1); SODIUM 144 MMOL/L (136-145)
--- NOTE | 2019-02-05 11:28 | NUR ---
DISCHARGE DISPOSITION: PLEASE READ PATIENT TO BE DISCHARGED TO [place] [facility] [address] T: [phone]>> CALL FOR REPORT [facility] ETA 1340 W/ RT [facility]ISON RONY WAS NOTIFIED VIA VM
--- NOTE | 2019-02-05 11:56 | NUR ---
NURSE NOTES: [facility] and gave report to Ashli JANG.
[2019-02-05 12:00] VITALS: BP 135/70
--- NOTE | 2019-02-05 12:35 | General Progress Note ---
Assessment/Plan Status: stable, progressing Assessment/Plan: Assessment - anemia - Resp failure - cirrhotic change on imaging with negative Hep B/C markers - Elevated Alk phos - GT dependent Recommendations - continue TF - Decrease free water - check AFP - normal - follow Na - PPI - daily CBC - no plans for EGD per family directive Subjective Allergies: Coded Allergies: No Known Allergies (Unverified , 01/27/17) Subjective non communicative tolerating TF d/w RN Objective Last 24 Hour Vital Signs Date Time Temp Pulse Resp B/P (MAP) Pulse Ox O2 Delivery O2 Flow Rate FiO2 02/05/19 10:51 90 23 40 02/05/19 08:44 108 24 40 02/05/19 08:38 104 153/76 02/05/19 08:37 104 153/76 02/05/19 08:00 99.3 104 21 153/76 (101) 100 02/05/19 08:00 40 02/05/19 08:00 Mechanical Ventilator 02/05/19 07:31 104 02/05/19 07:13 104 21 40 02/05/19 05:07 103 22 40 02/05/19 04:00 Mechanical Ventilator 02/05/19 04:00 98.1 104 25 143/80 (101) 100 02/05/19 04:00 40 02/05/19 03:43 102 02/05/19 02:55 102 21 40 02/05/19 00:58 100 22 40 02/05/19 00:00 Mechanical Ventilator 02/05/19 00:00 98.0 104 26 148/76 (100) 100 02/04/19 23:34 96 02/04/19 23:11 94 21 40 02/04/19 21:13 87 24 40 02/04/19 20:28 108 151/74 02/04/19 20:00 Mechanical Ventilator 02/04/19 20:00 40 02/04/19 19:57 97.8 108 25 151/74 (99) 100 02/04/19 19:21 105 21 40 02/04/19 19:07 102 02/04/19 17:28 100 20 40 02/04/19 16:00 Mechanical Ventilator 02/04/19 16:00 98.4 101 24 133/69 (90) 100 02/04/19 16:00 40 02/04/19 15:21 101 02/04/19 14:54 101 23 40 02/04/19 12:43 94 23 40 Intake and Output 02/04/19 02/05/19 19:00 07:00 Intake Total 1080 ml 1030 ml Output Total 600 ml 550 ml Balance 480 ml 480 ml Free Water 300 ml 250 ml Tube Feeding 780 ml 780 ml Output Urine Total 600 ml 550 ml Laboratory Tests 02/04/19 17:00: Urine Color Yellow, Urine Appearance Cloudy, Urine pH 6.5, Urine Specific [place] 1.005, Urine Protein 2+H, Urine Glucose (UA) Negative, Urine Ketones Negative, Urine Blood 2+H, Urine Nitrite Negative, Urine Bilirubin Negative, Urine Urobilinogen 4H, Urine Leukocyte Esterase 3+H, Urine RBC 5-10H, Urine WBC TntcH, Urine Squamous Epithelial Cells None, Urine Bacteria Few, Urine Yeast ModerateH 02/05/19 10:30: White Blood Count 15.6H, Red Blood Count 3.39L, Hemoglobin 9.2L, Hematocrit 29.5L, Mean Corpuscular Volume 87, Mean Corpuscular Hemoglobin 27.3, Mean Corpuscular Hemoglobin Concent 31.3L, Red Cell Distribution Width 19.9H, Platelet Count 648H, Mean Platelet Volume 4.2L, Neutrophils (%) (Auto) 77.8H, Lymphocytes (%) (Auto) 10.1L, Monocytes (%) (Auto) 6.9, Eosinophils (%) (Auto) 3.8H, Basophils (%) (Auto) 1.4, Sodium Level 144, Potassium Level 3.9, Chloride Level 106, Carbon Dioxide Level 32, Anion Gap 6, Blood Urea Nitrogen 39H, Creatinine 0.6, Estimat Glomerular Filtration Rate , Glucose Level 150H, Calcium Level 9.5, Total Bilirubin 0.5, Aspartate Amino Transf (AST/SGOT) 34, Alanine Aminotransferase (ALT/SGPT) 15, Alkaline Phosphatase 534H, Total Protein 8.3H, Albumin 1.5L, Globulin 6.8, Albumin/Globulin Ratio 0.2L Height (Feet): 5 Height (Inches): 5.00 Weight (Pounds): 126 Objective Frail AA man NCAT (+) Trach coarse BS RR abd soft, (+) GT contracted Oli Amaya MD Feb 05, 2019 12:35
--- NOTE | 2019-02-05 12:38 | Surgery Progress Note ---
Surgery Progress Note Objective Last 24 Hour Vital Signs Date Time Temp Pulse Resp B/P (MAP) Pulse Ox O2 Delivery O2 Flow Rate FiO2 02/05/19 12:00 98.2 88 18 135/70 (91) 100 02/05/19 10:51 90 23 40 02/05/19 08:44 108 24 40 02/05/19 08:38 104 153/76 02/05/19 08:37 104 153/76 02/05/19 08:00 99.3 104 21 153/76 (101) 100 02/05/19 08:00 40 02/05/19 08:00 Mechanical Ventilator 02/05/19 07:31 104 02/05/19 07:13 104 21 40 02/05/19 05:07 103 22 40 02/05/19 04:00 Mechanical Ventilator 02/05/19 04:00 98.1 104 25 143/80 (101) 100 02/05/19 04:00 40 02/05/19 03:43 102 02/05/19 02:55 102 21 40 02/05/19 00:58 100 22 40 02/05/19 00:00 Mechanical Ventilator 02/05/19 00:00 98.0 104 26 148/76 (100) 100 02/04/19 23:34 96 02/04/19 23:11 94 21 40 02/04/19 21:13 87 24 40 02/04/19 20:28 108 151/74 02/04/19 20:00 Mechanical Ventilator 02/04/19 20:00 40 02/04/19 19:57 97.8 108 25 151/74 (99) 100 02/04/19 19:21 105 21 40 02/04/19 19:07 102 02/04/19 17:28 100 20 40 02/04/19 16:00 Mechanical Ventilator 02/04/19 16:00 98.4 101 24 133/69 (90) 100 02/04/19 16:00 40 02/04/19 15:21 101 02/04/19 14:54 101 23 40 02/04/19 12:43 94 23 40 I&O Intake and Output 02/04/19 02/05/19 19:00 07:00 Intake Total 1080 ml 1030 ml Output Total 600 ml 550 ml Balance 480 ml 480 ml Free Water 300 ml 250 ml Tube Feeding 780 ml 780 ml Output Urine Total 600 ml 550 ml Dressing: other Wound: other Drains: other Cardiovascular: RSR Respiratory: decreased breath sounds Abdomen: soft, present bowel sounds Extremities: no cyanosis Laboratory Tests Test 02/04/19 17:00 02/05/19 10:30 Urine Color Yellow Urine Appearance Cloudy Urine pH 6.5 (4.5-8.0) Urine Specific [place] 1.005 (1.005-1.035) Urine Protein 2+ (NEGATIVE) H Urine Glucose (UA) Negative (NEGATIVE) Urine Ketones Negative (NEGATIVE) Urine Blood 2+ (NEGATIVE) H Urine Nitrite Negative (NEGATIVE) Urine Bilirubin Negative (NEGATIVE) Urine Urobilinogen 4 MG/DL (0.0-1.0) H Urine Leukocyte Esterase 3+ (NEGATIVE) H Urine RBC 5-10 /HPF (0 - 0) H Urine WBC Tntc /HPF (0 - 0) H Urine Squamous Epithelial Cells None /LPF (NONE/OCC) Urine Bacteria Few /HPF (NONE) Urine Yeast Moderate /HPF (NONE) H White Blood Count 15.6 K/UL (4.8-10.8) H Red Blood Count 3.39 M/UL (4.70-6.10) L Hemoglobin 9.2 G/DL (14.2-18.0) L Hematocrit 29.5 % (42.0-52.0) L Mean Corpuscular Volume 87 FL (80-99) Mean Corpuscular Hemoglobin 27.3 PG (27.0-31.0) Mean Corpuscular Hemoglobin Concent 31.3 G/DL (32.0-36.0) L Red Cell Distribution Width 19.9 % (11.6-14.8) H Platelet Count 648 K/UL (150-450) H Mean Platelet Volume 4.2 FL (6.5-10.1) L Neutrophils (%) (Auto) 77.8 % (45.0-75.0) H Lymphocytes (%) (Auto) 10.1 % (20.0-45.0) L Monocytes (%) (Auto) 6.9 % (1.0-10.0) Eosinophils (%) (Auto) 3.8 % (0.0-3.0) H Basophils (%) (Auto) 1.4 % (0.0-2.0) Sodium Level 144 MMOL/L (136-145) Potassium Level 3.9 MMOL/L (3.5-5.1) Chloride Level 106 MMOL/L (98-107) Carbon Dioxide Level 32 MMOL/L (21-32) Anion Gap 6 mmol/L (5-15) Blood Urea Nitrogen 39 mg/dL (7-18) H Creatinine 0.6 MG/DL (0.55-1.30) Estimat Glomerular Filtration Rate mL/min (>60) Glucose Level 150 MG/DL (74-106) H Calcium Level 9.5 MG/DL (8.5-10.1) Total Bilirubin 0.5 MG/DL (0.2-1.0) Aspartate Amino Transf (AST/SGOT) 34 U/L (15-37) Alanine Aminotransferase (ALT/SGPT) 15 U/L (12-78) Alkaline Phosphatase 534 U/L (46-116) H Total Protein 8.3 G/DL (6.4-8.2) H Albumin 1.5 G/DL (3.4-5.0) L Globulin 6.8 g/dL Albumin/Globulin Ratio 0.2 (1.0-2.7) L Plan Problems: (1) HCAP (healthcare-associated pneumonia) (2) Decubitus ulcer Assessment & Plan: Pt presented on admission with multiple pressure injuries. Resolving pressure injury L occipital. Dry pink epithelial noted. Skin assessed under trach collar and no areas of concerns noted . R and L ears dry . Full thickness pressure injury with undermining thoracic spine . Base of wound 75% granular with 25% fibrinous slough. Mild odor noted.(L)8.5cm x (W)6.5cmx(D) 1cm, undermining clockwise 6-1 by 3cm @12o'clock. Full thickness pressure injury L trochanter. 100% mixed necrosis/slough at base of wound and undermined borders.Non-blanchable erythema with induration noted periwound. Mild odor noted .(L)3.5cm x (W)4.5cm. Resolving DTPI L ischium .Centrally wound is red and fluctuant .Bone is palpable. Black with red tinged indurated borders noted. (L) (L)4.4cm x (W) 3.2cm. Ful thickness pressure injury R Iliac with 10% velazquez slough centrally.90% granular.Edges adherent and flat. (L)3cm x (W)3.2cm x(D)0.2cm. No odor or exudate noted.Darker skin tone without fluctuance noted periwound. Full thickness pressure injury with undermining R trochanter. Base of wound 60^ beefy red with 40% velazquez slough.erythejma noted along borders. Small amt seropurulent exudate that is mildly odorous.(L)5.5cm x (W)6.6cm x (D)1.5cm, undermining clockwise 12-12 by 4.5cm @3o'clock. Full thickness pressure injury R ischium (L)4.2cm x (W)5.5cm x(D)1.6cm, undermining 12-12 by 1.8cm @12o'clock .Base of wound 60% granular ,40% velazquez slough undermined borders.Wound has mild odor with small amt seropurulent exudate.darker skin tone that is indurated periwound. Resolving pressure injury sacrum . Base of wound dry with pink epithelial.with scattered shearing within base of wound. L heel boggy with non-blanchable erythema. DTPI R heel and Lateral aspect .Base of wound is maroon with fluctuance. (L) 4.5cm x (W)7.3cm. Tx.Plan. Cleanse wounds Thoracic and lumbar spine with Dakin's 0.125% segun. Pack with Dakin's moist gauze. Apply Moisture Barrier Paste periwound. Cover each wound with Optifoam drsg.Twice Daily and prn. Cleanse wound L trochanter and L ischium with Dakin's 0.125% segun. Pack with Dakin's moist Gauze.Apply Moisture Barrier paste periwound. Cover with Optifoam drsg. Twice daily and prn. Cleanse wounds R iliac ,R trochanter,R ischium with Dakin's 0.125% segun. Pack with Dakin's moist gauze. Apply Moisture Barrier Paste periwound. Cover with Optifoam drsg Twice daily and prn. Apply Moisture Barrier paste to sacrum. Cover with Optifoam drsg. Change every 3 days and prn. Apply Cavilon Skin Barrier to Both heels. Cover each heel with Optifoam drsg. Change every 7 days and prn. Air Fluidized Mattress. Reposition at least every 2hours or as tolerated. Off-load heels with pillow. Spoke with family. I explained to them that his condition has been deteriorating for some time now. i have seen him in the past and during each admission his wounds are deteriorating despite best efforts at care. He has received adequate nutritional support/supplementation, adequate wound care, and appropriate prevention while in hospital during each admission but wounds continue to deteriorate. they expressed understanding. cont with current care plan (3) Anemia (4) UTI (urinary tract infection), bacterial (5) Toxic metabolic encephalopathy (6) Dementia (7) Dyspnea (8) Respiratory distress (9) Hyperlipidemia (10) Aspiration pneumonia (11) Aspiration pneumonia (12) Vitamin B 12 deficiency Assessment & Plan: DAILY ESTIMATED NEEDS: Needs based on Underweight, TF RELAY WORKER, Cachetic, Critical care, wounds/49.5kg 30-40 kcals/kg 5805-5722 total kcals 1.5-2 g protein/kg 74-99 g total protein 25-30 mL/kg 1204-7940 total fluid mLs NUTRITION DIAGNOSIS: 1) Swallowing difficulty r/t dysphagia, respiratory status as evidenced by pt is PEG dep, trach/vent dep. . 2) Increased kcal/prot needs R/T underweight status w/ wasting, and wound healing as evidenced by low BMI under guidelines, noted w/ severe generalized wasting, pt w/ multiple advanced wounds, pending eval ENTERAL NUTRITION RECOMMENDATIONS: Vital AF 1.2 @ 65ml/hr x 24 hrs to provide 1560ml, 1872kcal, 117g prot, 1265ml free water - Maintain Vital AF 1.2 @ 65ml/hr as tolerated - Meets 100% est kcal and protein needs. - HOB over 30 degrees/ water flush per MD ADDITIONAL RECOMMENDATIONS: 1) WOUND HEALING: add Vit C 500mg BID, Edgard 1pkt BID 2) RECALIBRATE BED SCALE FOR ACCURATE CBW + weekly wt monitoring given underweight status 3) Check lytes daily, replete as needed - (Low K, mg) 4) Continue to maintain calibrated bed scale wts (13) Encephalopathy (14) Sepsis Assessment & Plan: Leukocytosis resolved cont with IV fluids Cont with IV abx as per ID CXR noted labs noted Thank you for this consultation we will follow with recommendations (15) Pneumonia (16) Status epilepticus (17) HTN (hypertension) (18) Encephalopathy acute (19) BPH (benign prostatic hyperplasia) (20) Abnormal LFTs (21) Probable sepsis (2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 (23) Zev Mchugh Feb 05, 2019 12:38
--- NOTE | 2019-02-05 14:16 | NUR ---
Discharge: Patient is being discharged to [facility] from medical care. Pt. non-verbal. All medical devices such as IV, senior game advisor and ID band were removed. Patient wheeled out via lifeline with RT/RN and ambulance personnel. Pt. remain stable.
--- NOTE | 2019-02-05 14:58 | Pulmonology Progress Note ---
Assessment/Plan Assessment/Plan ASSESSMENT: toxic metabolic encephalopathy, history of stroke, chronic respiratory failure, hyponatremia, acute on chronic renal failure, chronic encephalopathy, seizure disorder, pulmonary tuberculosis, and anemia possible sepsis, leukocytosis PLAN care noted TB meds as is ID clearance respiratory care Ventilatory support- RT care reviewed SNF meds monitor HH supportive care as is- adjust as needed; RT noted suction as needed oxygen therapy nursing notes reviewed dc planning; ok per pulmonary care noted and discussed prognosis poor overall all cultures and specialty sales consultant notes reviewed impression, plan, and exam edited and reviewed in detail; seen earlier care discussed with RN Subjective ROS Limited/Unobtainable: Yes Allergies: Coded Allergies: No Known Allergies (Unverified , 01/27/17) Subjective on vent poor loc; obtunded labs reviewed cultures noted care noted RT care noted Objective Last 24 Hour Vital Signs Date Time Temp Pulse Resp B/P (MAP) Pulse Ox O2 Delivery O2 Flow Rate FiO2 02/05/19 12:40 89 21 40 02/05/19 12:00 98.2 88 18 135/70 (91) 100 02/05/19 12:00 Mechanical Ventilator 02/05/19 12:00 40 02/05/19 11:25 86 02/05/19 10:51 90 23 40 02/05/19 08:44 108 24 40 02/05/19 08:38 104 153/76 02/05/19 08:37 104 153/76 02/05/19 08:00 99.3 104 21 153/76 (101) 100 02/05/19 08:00 40 02/05/19 08:00 Mechanical Ventilator 02/05/19 07:31 104 02/05/19 07:13 104 21 40 02/05/19 05:07 103 22 40 02/05/19 04:00 Mechanical Ventilator 02/05/19 04:00 98.1 104 25 143/80 (101) 100 02/05/19 04:00 40 02/05/19 03:43 102 02/05/19 02:55 102 21 40 02/05/19 00:58 100 22 40 02/05/19 00:00 Mechanical Ventilator 02/05/19 00:00 98.0 104 26 148/76 (100) 100 02/04/19 23:34 96 02/04/19 23:11 94 21 40 02/04/19 21:13 87 24 40 02/04/19 20:28 108 151/74 02/04/19 20:00 Mechanical Ventilator 02/04/19 20:00 40 02/04/19 19:57 97.8 108 25 151/74 (99) 100 02/04/19 19:21 105 21 40 02/04/19 19:07 102 02/04/19 17:28 100 20 40 02/04/19 16:00 Mechanical Ventilator 02/04/19 16:00 98.4 101 24 133/69 (90) 100 02/04/19 16:00 40 02/04/19 15:21 101 Intake and Output 02/04/19 02/05/19 19:00 07:00 Intake Total 1080 ml 1030 ml Output Total 600 ml 550 ml Balance 480 ml 480 ml Free Water 300 ml 250 ml Tube Feeding 780 ml 780 ml Output Urine Total 600 ml 550 ml Objective GENERAL APPEARANCE: The patient is a chronically ill-appearing male, in no apparent distress. unresponsive. nonverbal NECK: Supple. Trach site is clean, dry, and intact. CARDS: RRR without MRG LUNGS: minimal rhonchi. moderate air entry; no wheeze ABDOMEN: Soft, nontender, and nondistended. GT; no HSM EXTREMITIES: No clubbing or cyanosis. reduced skin turgor multiple decubitus NEURO: obtunded and same reviewed and edited Laboratory Tests 02/04/19 17:00: Urine Color Yellow, Urine Appearance Cloudy, Urine pH 6.5, Urine Specific [place] 1.005, Urine Protein 2+H, Urine Glucose (UA) Negative, Urine Ketones Negative, Urine Blood 2+H, Urine Nitrite Negative, Urine Bilirubin Negative, Urine Urobilinogen 4H, Urine Leukocyte Esterase 3+H, Urine RBC 5-10H, Urine WBC TntcH, Urine Squamous Epithelial Cells None, Urine Bacteria Few, Urine Yeast ModerateH 02/05/19 10:30: White Blood Count 15.6H, Red Blood Count 3.39L, Hemoglobin 9.2L, Hematocrit 29.5L, Mean Corpuscular Volume 87, Mean Corpuscular Hemoglobin 27.3, Mean Corpuscular Hemoglobin Concent 31.3L, Red Cell Distribution Width 19.9H, Platelet Count 648H, Mean Platelet Volume 4.2L, Neutrophils (%) (Auto) 77.8H, Lymphocytes (%) (Auto) 10.1L, Monocytes (%) (Auto) 6.9, Eosinophils (%) (Auto) 3.8H, Basophils (%) (Auto) 1.4, Sodium Level 144, Potassium Level 3.9, Chloride Level 106, Carbon Dioxide Level 32, Anion Gap 6, Blood Urea Nitrogen 39H, Creatinine 0.6, Estimat Glomerular Filtration Rate , Glucose Level 150H, Calcium Level 9.5, Total Bilirubin 0.5, Aspartate Amino Transf (AST/SGOT) 34, Alanine Aminotransferase (ALT/SGPT) 15, Alkaline Phosphatase 534H, Total Protein 8.3H, Albumin 1.5L, Globulin 6.8, Albumin/Globulin Ratio 0.2L Nakul Cisse MD Feb 05, 2019 14:58
--- NOTE | 2019-02-05 16:30 | Discharge Summary ---
DATE OF ADMISSION: 01/22/2019 DATE OF DISCHARGE: 02/05/2019 ADMITTING DIAGNOSES: 1. Sepsis. 2. Pneumonia. 3. Anemia. 4. Encephalopathy. 5. Respiratory failure. 6. History of stroke. 7. History of seizure disorder. 8. History of pulmonary tuberculosis. DISCHARGE DIAGNOSES: 1. Sepsis. 2. Pneumonia. 3. Anemia. 4. Encephalopathy. 5. Respiratory failure. 6. History of stroke. 7. History of seizure disorder. 8. History of pulmonary tuberculosis. HOSPITAL COURSE: The patient is an unfortunate male with history of stroke, encephalopathy, seizure disorder, chronic respiratory failure, pulmonary TB. He was admitted with complaints of sepsis secondary to pneumonia and urinary tract infection. He was treated with broad-spectrum IV antibiotics. He is maintained on the vent support. TB medications were discontinued under recommendations from the Department of Health as the patient has completed his full course of treatment. Hospital course was complicated by a single seizure. The patient did also require transfusion. His anemia was felt to be likely due to chronic disease. He had no signs or symptoms of bleeding. Otherwise on discharge, the patient was stable. He completed antibiotic therapy. He will be discharged from senior care facility. Please see discharge medication list for discharge medications. DIET: G-tube feedings. ACTIVITIES: Ad-leslye. Jarrod Vásquez M.D. DR: Emir JOB#: [id number] CC:
--- NOTE | 2019-02-05 17:30 | Progress Note ---
CARDIOLOGY PROGRESS NOTE DATE: 02/05/2019 SUBJECTIVE: The patient is at baseline. He was started last night on antifungals by me for his urinary tract fungal cystitis. PHYSICAL EXAMINATION: VITAL SIGNS: Blood pressure 135/70, pulse 88, respirations 18, and afebrile. GENERAL: Obtunded. NECK: Thin trach secretions. LUNGS: Bilateral breath sounds. CARDIAC: Regular rhythm and rate. Normal S1, S2. ABDOMEN: Soft. G-tube intact. EXTREMITIES: No edema. LABORATORY DATA: White count 15, hemoglobin 9. BUN 39, creatinine 0.6, potassium 3.9. Albumin 1.5. IMPRESSION: Remains high risk with multiple medical problems, significantly impaired baseline level of function on chronic ventilator support, but stable for subacute level of care at this time to continue beta cr. Cardiovascular regimen reviewed for discharge to subacute facility. Jones Arauz M.D. DR: OLEG JOB#: [id number] CC:
== END 2019-02-05 14:15 | DRG 870 ==
LOC: EDBD 21:17 → EMR 21:27 → EDBEDREQ 22:11 → 2W 22:31 → EDBEDREQ 23:24
PROC: 5A1955Z Respiratory Ventilation, Greater than 96 Consecutive Hours (ICD-10-PCS; principal; 2019-01-22)
DX: A41.9 Sepsis, unspecified organism (principal); L89.224 Pressure ulcer of left hip, stage 4; L89.214 Pressure ulcer of right hip, stage 4; L89.154 Pressure ulcer of sacral region, stage 4; G92 Toxic encephalopathy; J69.0 Pneumonitis due to inhalation of food and vomit; J15.8 Pneumonia due to other specified bacteria; E43 Unspecified severe protein-calorie malnutrition; R65.21 Severe sepsis with septic shock; N39.0 Urinary tract infection, site not specified; J96.10 Chronic respiratory failure, unspecified whether with hypoxia or hypercapnia; E87.1 Hypo-osmolality and hyponatremia; N17.9 Acute kidney failure, unspecified; A15.0 Tuberculosis of lung; J44.0 Chronic obstructive pulmonary disease with (acute) lower respiratory infection; Z99.11 Dependence on respirator [ventilator] status; I13.0 Hypertensive heart and chronic kidney disease with heart failure and stage 1 through stage 4 chronic kidney disease, or unspecified chronic kidney disease; I50.32 Chronic diastolic (congestive) heart failure; E87.3 Alkalosis; Z99.81 Dependence on supplemental oxygen; Z86.73 Personal history of transient ischemic attack (TIA), and cerebral infarction without residual deficits; G40.909 Epilepsy, unspecified, not intractable, without status epilepticus; Z93.0 Tracheostomy status; Z93.1 Gastrostomy status; Z74.01 Bed confinement status; D64.9 Anemia, unspecified; F03.90 Unspecified dementia, unspecified severity, without behavioral disturbance, psychotic disturbance, mood disturbance, and anxiety; N40.0 Benign prostatic hyperplasia without lower urinary tract symptoms; E53.8 Deficiency of other specified B group vitamins; R13.10 Dysphagia, unspecified; Z68.21 Body mass index [BMI] 21.0-21.9, adult; N18.9 Chronic kidney disease, unspecified; K74.60 Unspecified cirrhosis of liver; E87.6 Hypokalemia; E86.0 Dehydration; E83.42 Hypomagnesemia
CPT/HCPCS: 36415; 36600; 71045; 74150; 80048; 80053; 80202; 80299; 81003; 82105; 82248; 82270; 82550; 82553; 82803; 82962; 82977; 83605; 83735; 84484; 85007; 85025; 86850; 86900; 86901; 86920; 87040; 87070; 87081; 87086; 87181; 87205; 93005; 93306; 93970; 94002; 94003; 94640; 94664; 96361; 96365; 96368; 99291; J7620; J8499

== ENCOUNTER 2019-02-18 14:05 | Inpatient (IN) | payer MEDICARE, OTHER ==
[~2019-02-18] VITALS: Ht 182.9 cm; Wt 59.6 kg
[~2019-02-18 14:05] MED LIST changes: +NORCO 5-325 TA1 EACH GT
--- NOTE | 2019-02-18 14:32 | NUR ---
RESPIRATORY NOTE: Received Pt in ER, placed on vent settings AC/VC 12, 500 Vt, 40% FiO2, PEEP +5 while awaiting MD vent orders. Pt is trach-dependent with a cuffed portex 7. Bilateral rhonchi breath sounds noted. Pt is disoriented. Alarms are on and audible. Ambubag present in room. Will continue to monitor.
--- NOTE | 2019-02-18 14:34 | Emergency Room Report ---
History of Present Illness General Chief Complaint: Abnormal Labs Present Illness HPI 73 year-old male history of stroke, hypertension, hyperlipidemia, non-talkative at baseline, tracheostomy, G-tube, presents with abnormal labs, no aggravating relieving factors, patient with an alk phos elevated, patient also with anemia. No history of fever, recent admission for sepsis, patient noncommunicative Allergies: Coded Allergies: No Known Allergies (Unverified , 01/27/17) Patient History Limited by: medical condition - Strokes Past Medical History: see triage record Reviewed Nursing Documentation: PMH: Agreed; PSxH: Agreed Nursing Documentation-PMH Hx Cardiac Problems: Yes - Hyperlipidemia Hx Hypertension: Yes Hx Pacemaker: No Hx Asthma: Yes Hx Cancer: No Hx Gastrointestinal Problems: Yes Hx Neurological Problems: Yes Hx Cerebrovascular Accident: Yes Hx Transient Ischemic Attacks: Yes Hx Dementia: Yes Hx Encephalitis: Yes Hx Seizures: Yes Hx Epilepsy: Yes Hx Syncope: Yes Hx Dysphasia: Yes Review of Systems All Other Systems: limited - Non-talkative baseline, stroke Physical Exam Vital Signs Date Time Temp Pulse Resp B/P (MAP) Pulse Ox O2 Delivery O2 Flow Rate FiO2 02/18/19 14:14 98.2 71 23 97/54 (68) 97 Mechanical Ventilator Sp02 EP Interpretation: reviewed, normal General Appearance: no apparent distress, cachetic Head: normocephalic, atraumatic Eyes: bilateral eye PERRL, bilateral eye EOMI ENT: uvula midline, moist mucus membranes Neck: supple, thyroid normal, supple/symm/no masses, tracheotomy Respiratory: lungs clear, no respiratory distress, no retraction, no accessory muscle use Cardiovascular #1: normal peripheral pulses, regular rate, rhythm, no edema, no gallop, no murmur Gastrointestinal: non tender, soft, no guarding, no rebound Genitourinary: other - Manzo in place Musculoskeletal: normal inspection Neurologic: other - Patient contracted, AO x0 Skin: no rash, warm/dry, other - decubitus ulcer present Medical Decision Making Diagnostic Impression: Primary Impression: Sepsis Additional Impressions: Pneumonia UTI (urinary tract infection), bacterial Leukocytosis ER Course 73-year-old male halfway patient presents with abnormal labs, patient found to have sepsis, x-ray was done that shows bilateral infiltrates, patient also with a co-commitment UTI. Patient given cefepime, Vanco, azithromycin Will be admitted to the stepdown unit, patient Patient admitted to [facility] 4:41pm Laboratory Tests Test 02/18/19 15:00 02/18/19 15:24 White Blood Count 23.5 K/UL (4.8-10.8) *H Red Blood Count 2.69 M/UL (4.70-6.10) L Hemoglobin 7.5 G/DL (14.2-18.0) L Hematocrit 25.0 % (42.0-52.0) L Mean Corpuscular Volume 93 FL (80-99) Mean Corpuscular Hemoglobin 28.0 PG (27.0-31.0) Mean Corpuscular Hemoglobin Concent 30.1 G/DL (32.0-36.0) L Red Cell Distribution Width 18.1 % (11.6-14.8) H Platelet Count 310 K/UL (150-450) Mean Platelet Volume 5.1 FL (6.5-10.1) L Neutrophils (%) (Auto) % (45.0-75.0) Lymphocytes (%) (Auto) % (20.0-45.0) Monocytes (%) (Auto) % (1.0-10.0) Eosinophils (%) (Auto) % (0.0-3.0) Basophils (%) (Auto) % (0.0-2.0) Differential Total Cells Counted 100 Neutrophils % (Manual) 93 % (45-75) H Lymphocytes % (Manual) 1 % (20-45) L Monocytes % (Manual) 3 % (1-10) Eosinophils % (Manual) 1 % (0-3) Basophils % (Manual) 0 % (0-2) Band Neutrophils 2 % (0-8) Toxic Granulation 1+ Platelet Estimate Adequate Platelet Morphology Normal Polychromasia 1+ Hypochromasia 2+ Anisocytosis 2+ Prothrombin Time 11.4 SEC (9.30-11.50) Prothrombin Time INR 1.1 (0.9-1.1) PTT 33 SEC (23-33) Sodium Level 155 MMOL/L (136-145) H Potassium Level 5.1 MMOL/L (3.5-5.1) Chloride Level 114 MMOL/L (98-107) H Carbon Dioxide Level 39 MMOL/L (21-32) H Anion Gap 1 mmol/L (5-15) L Blood Urea Nitrogen 100 mg/dL (7-18) H Creatinine 1.3 MG/DL (0.55-1.30) Estimate Glomerular Filtration Rate mL/min (>60) Glucose Level 120 MG/DL (74-106) H Lactic Acid Level 1.20 mmol/L (0.4-2.0) Calcium Level 10.1 MG/DL (8.5-10.1) Phosphorus Level 4.9 MG/DL (2.5-4.9) Magnesium Level 3.6 MG/DL (1.8-2.4) H Total Bilirubin 0.6 MG/DL (0.2-1.0) Aspartate Amino Transferase (AST) 54 U/L (15-37) H Alanine Aminotransferase (ALT) 26 U/L (12-78) Alkaline Phosphatase 772 U/L (46-116) H Total Creatine Kinase 54 U/L (26-308) Creatine Kinase MB 0.8 NG/ML (0.0-3.6) Creatine Kinase MB Relative Index 1.4 Troponin I 0.000 ng/mL (0.000-0.056) Pro-B-Type Natriuretic Peptide 1490 pg/mL (0-125) H Total Protein 8.7 G/DL (6.4-8.2) H Albumin 1.4 G/DL (3.4-5.0) L Globulin 7.3 g/dL Albumin/Globulin Ratio 0.2 (1.0-2.7) L Lipase 237 U/L (73-393) Urine Color Yellow Urine Appearance Cloudy Urine pH 6.5 (4.5-8.0) Urine Specific [place] 1.010 (1.005-1.035) Urine Protein 2+ (NEGATIVE) H Urine Glucose (UA) Negative (NEGATIVE) Urine Ketones Negative (NEGATIVE) Urine Blood 4+ (NEGATIVE) H Urine Nitrite Negative (NEGATIVE) Urine Bilirubin Negative (NEGATIVE) Urine Urobilinogen 8 MG/DL (0.0-1.0) H Urine Leukocyte Esterase 3+ (NEGATIVE) H Urine RBC 2-4 /HPF (0 - 0) H Urine WBC 30-40 /HPF (0 - 0) H Urine Squamous Epithelial Cells Few /LPF (NONE/OCC) Urine Bacteria Many /HPF (NONE) H EKG Diagnostic Results EKG Time: 14:47 EP Interpretation: Rate 75, QTc 408, no acute ST elevations normal axis Rate: normal Rhythm: NSR ST Segments: no acute changes Chest X-Ray Diagnostic Results Chest X-Ray Diagnostic Results : Chest X-Ray Ordered: Yes # of Views/Limited/Complete: 1 View Indication: Shortness of Breath Interpretation: other - Jordan infiltrates Impression: Other - pneumonia Last Vital Signs Date Time Temp Pulse Resp B/P (MAP) Pulse Ox O2 Delivery O2 Flow Rate FiO2 02/18/19 14:14 98.2 71 23 97/54 (68) 97 Mechanical Ventilator Disposition: ADMITTED INPATIENT Condition: Improved Fabián Erickson M.D. Feb 18, 2019 14:34
[2019-02-18 15:00] VITALS: BP 100/46
--- NOTE | 2019-02-18 15:00 | NUR ---
ED Nurse Note: PATIENT BROUGHT IN BY AMBULANCE FROM [facility] DUE TO ABNORMAL LAB. PATIENT IS NON-VERBAL, DOES NOT OPEN EYES AT THIS TIME. PATIENT IS ON MECHANICAL VENTILATOR. NO FACIAL GRIMACING OR GUARDING NOTED. PLACED PATIENT ON PRESCHOOL ASSISTANT, NO ECTOPY NOTED. BED IN LOWEST POSITON.
[2019-02-18 15:29] LABS: HEMOGLOBIN 7.5 G/DL (14.2-18.0); MEAN CORPUSCULAR VOLUME 93 FL (80-99); PLATELET COUNT 310 K/UL (150-450); RED BLOOD COUNT 2.69 M/UL (4.70-6.10); RED CELL DISTRIBUTION WIDTH 18.1 % (11.6-14.8)
--- NOTE | 2019-02-18 15:30 | NUR ---
ED Nurse Note: ANN FIRE TRUCK DRIVER INSERTED IV TO RIGHT UPPER ARM, 20G, 1ST ATTEMPT USING ULTRSOUND. PATIENT TOLERATED THE PROCEDURE WITHOUT DIFFICULTY.
[2019-02-18 15:32] LABS: INR 1.1 (0.9-1.1)
[2019-02-18 15:37] LABS: WHITE BLOOD COUNT 23.5 K/UL (4.8-10.8)
--- NOTE | 2019-02-18 15:45 | NUR ---
ED Nurse Note: REPORT GIVEN TO LALA VILLA. U/S TECH AT BEDSIDE.
--- NOTE | 2019-02-18 15:46 | Diagnostic Imaging Report ---
Indication: Chest pain Comparison: 01/22/2019 A single view chest radiograph was obtained. Findings: Patchy infiltrates versus pulmonary edema demonstrated. Disease appears slightly worse currently. Lungs are hyperexpanded. The heart is enlarged. Tracheostomy is noted. Bones are osteopenic. IMPRESSION: Worsening bilateral infiltrates versus pulmonary edema. Correlate clinically
[2019-02-18 15:49] LABS: APPEARANCE,URINE CLOUDY; BILIRUBIN, URINE NEGATIVE (NEGATIVE); GLUCOSE, URINE (UA) NEGATIVE (NEGATIVE); KETONES,URINE NEGATIVE (NEGATIVE); LEUKOCYTE ESTERASE ,URINE 3+ (NEGATIVE); NITRITE,URINE NEGATIVE (NEGATIVE); PH,URINE 6.5 (4.5-8.0); PROTEIN,URINE 2+ (NEGATIVE); UROBILINOGEN,URINE 8 MG/DL (0.0-1.0)
[2019-02-18 15:50] LABS: COLOR,URINE YELLOW
[2019-02-18 15:55] LABS: ALANINE AMINOTRANSFERASE 26 U/L (12-78); ALBUMIN 1.4 G/DL (3.4-5.0); ALBUMIN/GLOBULIN RATIO 0.2 (1.0-2.7); ALKALINE PHOSPHATASE 772 U/L (46-116); ANION GAP 1 mmol/L (5-15); ASPARTATE AMINO TRANSFERASE 54 U/L (15-37); BILIRUBIN,TOTAL 0.6 MG/DL (0.2-1.0); BLOOD UREA NITROGEN 100 mg/dL (7-18); CALCIUM 10.1 MG/DL (8.5-10.1); CARBON DIOXIDE 39 MMOL/L (21-32); CHLORIDE 114 MMOL/L (98-107); CKMB 0.8 NG/ML (0.0-3.6); CREATINE KINASE 54 U/L (26-308); CREATININE 1.3 MG/DL (0.55-1.30); PHOSPHORUS 4.9 MG/DL (2.5-4.9); POTASSIUM 5.1 MMOL/L (3.5-5.1); SODIUM 155 MMOL/L (136-145)
--- NOTE | 2019-02-18 16:11 | Diagnostic Imaging Report ---
Indication: Abdominal pain Technique: Grayscale and duplex Doppler imaging of the abdomen performed. Comparison: None Findings: This study was limited as patient is contracted and there is a gastrostomy partially obscuring the anterior abdomen. The liver is notable for surface nodularity. Doppler interrogation of the main portal vein shows patency with hepatopedal, monophasic flow. There is no biliary ductal dilatation identified. The spleen is enlarged measuring 15 cm. Gallbladder is absent. There demonstrated part of the pancreas, aorta and IVC show no definite abnormalities although poorly seen due to bowel gas. There is a small cyst in the central part of the left kidney. There is no hydronephrosis. IMPRESSION: No acute findings identified. Nodularity of the liver suggestive of chronic disease/cirrhosis. This has been documented previously as well. Splenomegaly. Status post cholecystectomy. Left renal cyst Limited evaluation as discussed above
[2019-02-18] MEDS ORDERED: Azithromycin 500 MG in NS 275 ML IV ONE (16:15)
[2019-02-18] MEDS ORDERED: Cefepime 2gm IV ONE (16:15)
[2019-02-18] MEDS ORDERED: Vancomycin 1 GM in NS 275 ML IVPB ONE (16:15)
--- NOTE | 2019-02-18 17:12 | NUR ---
ED Nurse Note: ON SKIN ASSESSMENT, MULTIPLE OPEN PRESSURE WOUNDS NOTED TO BACK, BILATERAL AND HIPS. PHOTOS TAKEN AND UPLOADED TO EMR.
[2019-02-18 17:44] VITALS: BP 97/46
--- NOTE | 2019-02-18 17:45 | NUR ---
ED Nurse Note: SDU CALLED FOR PT TRANSFER. LALA ALEXANDRE NOT READY TO ACCEPT PT. WILL CALL BACK IN 10 MINUTES.
--- NOTE | 2019-02-18 17:54 | NUR ---
ED Nurse Note: SDU CALLED FOR PT REPORT. REPORT GIVEN TO LALA ALEXANDRE. LALA ALEXANDRE READY TO ACCEPT PT. PT TAKEN UP TO SDU VIA GURNEY ON SAP MANAGER RUNNING IV ABX WITH ALL BELONGINGS ACCOMPANIED BY LALA BAGLEY AND EMT.
[2019-02-18 18:30] VITALS: BP 100/56
[2019-02-18] MEDS ORDERED: MULTIVITAMINS1 EAC2 GT (19:10)
[2019-02-18] MEDS ORDERED: HEPARIN2000 UNIT/ SUBQ (19:10)
--- NOTE | 2019-02-18 19:14 | NUR ---
HAND-OFF: Report given to VICKIE REEVES, pt came from ER, vent dependent, obtunded, vital signs stable, multiple decub.
--- NOTE | 2019-02-18 19:15 | NUR ---
NURSE NOTES: Report received from Arielle Fletcher RN. Observed pt lying in bed. Pt obtunded, no signs of pain noted. SR with cafeteria monitor. Trach to vent, portex 7, AC 12, TV 500, FIO2 40%, PEEP 5. V/S WNL. GT intact and patent. Multiple pressure wounds noted and WCP will be initiated. IV on R UA 20G, SL. VS BP 103/59, P 88, T 98.2, R 16, SaO2 100%. Awaiting for admitting order. Bed in the lowest position. Side rails up x3. Will continue to monitor.
[2019-02-18] MEDS ORDERED: Albuterol/Ipratropium 3ml neb HHN PRN (19:45)
[2019-02-18] MEDS ORDERED: Artificial Tears 1.4% Op Soln BOTH EYES PRN (19:45)
[2019-02-18] MEDS ORDERED: HYDROcodone/Acetamin 5/325 tab GT PRN (19:45)
[2019-02-18 20:00] VITALS: BP 105/52
[2019-02-18] MEDS: Doxazosin 1mg Tab GT SCH (20:11)
[2019-02-18] MEDS: levETIRAcetam 500mg/5ml Liquid GT SCH (20:11)
[2019-02-18] MEDS: Metoprolol Tartrate 50mg tab GT SCH (20:11)
[2019-02-18] MEDS: Piperacillin/Tazobactam 3.375 GM in NS 110 ML IVPB SCH (21:47)
[2019-02-19] VITALS (7 sets, daily range): BP systolic 81–118; BP diastolic 40–91
--- NOTE | 2019-02-19 | NUR ---
NURSE NOTES: Observed pt lying in the bed, sleeping. No acute distress noted at this time. Reposition done with pillow support. Oral care done. SR with athletic monitor. V/S within normal limit. Will continue to monitor.
[2019-02-19 05:02] LABS: HEMATOCRIT 20.8 % (42.0-52.0); MEAN CORPUSCULAR VOLUME 93 FL (80-99); PLATELET COUNT 294 K/UL (150-450); RED BLOOD COUNT 2.25 M/UL (4.70-6.10); RED CELL DISTRIBUTION WIDTH 18.7 % (11.6-14.8); WHITE BLOOD COUNT 17.5 K/UL (4.8-10.8)
[2019-02-19 05:04] LABS: ALANINE AMINOTRANSFERASE 18 U/L (12-78); ALBUMIN/GLOBULIN RATIO 0.2 (1.0-2.7); ALKALINE PHOSPHATASE 591 U/L (46-116); ANION GAP 6 mmol/L (5-15); ASPARTATE AMINO TRANSFERASE 42 U/L (15-37); BILIRUBIN,TOTAL 0.5 MG/DL (0.2-1.0); BLOOD UREA NITROGEN 87 mg/dL (7-18); CALCIUM 8.9 MG/DL (8.5-10.1); CARBON DIOXIDE 35 MMOL/L (21-32); CHLORIDE 113 MMOL/L (98-107); CREATININE 1.1 MG/DL (0.55-1.30); POTASSIUM 3.9 MMOL/L (3.5-5.1); SODIUM 154 MMOL/L (136-145)
[2019-02-19] MEDS: Vancomycin 750mg/NS 275ml IVPB SCH ×4 (05:08→18:11)
[2019-02-19 05:32] LABS: HEMOGLOBIN 6.2 G/DL (14.2-18.0)
--- NOTE | 2019-02-19 06:00 | NUR ---
NURSE NOTES: Notified regarding Hgb 6.2 and 2 PRBC order received. Will continue to follow the plan of care.
--- NOTE | 2019-02-19 06:27 | NUR ---
NURSE NOTES: Blood transfusion consent obtained from through telephone, witnessed by LALA Caballero.
[2019-02-19] MEDS: Piperacillin/Tazobactam 3.375 GM in NS 110 ML IVPB SCH ×3 (06:41→21:58)
--- NOTE | 2019-02-19 07:00 | NUR ---
RESPIRATORY NOTE:pt recieved on AC mode, no SOB or discomfort noted, trach intact, sx PRN, sat is 100%, will continue to onitor the pt.
--- NOTE | 2019-02-19 07:22 | NUR ---
HAND-OFF: Report given to Arielle Jc RN. No aucte distress noted at this time.
--- NOTE | 2019-02-19 07:25 | NUR ---
NURSE NOTES: Report received from Luis Daniel Chavis RN.Pt resting in bed asleep noted no resp distress with,trach tube to Vent,settings AC12,TV 500,Fio2 40%.Peep 5,GTF Osmolite 1.5 at 40 ml/hr,no residual noted,Manzo cath draining yellow urine,PIV site to BASIL intact with IVF 1/2 NS at 100 ml/hr,skin warm and dry with multiple wounds to back,SR up x2 HOB elevated,bed lock in lowest position,will continue with plans of care.
--- NOTE | 2019-02-19 08:30 | NUR ---
NURSE NOTES: Dr Vásquez at bedside,informed re low BP 81/40 and low H/H,6.5/20.8,ordered 500 ml NS bolus and 2 Units PRBC.
--- NOTE | 2019-02-19 08:32 | NUR ---
NURSE NOTES:WOUND CARE NOTES:Pt presented on admission with multiple pressure injuries and contractures. Skin Assessed under collar of trach and no evidence of skin breakdown noted. scar from previous pressure injury noted to L parietal lobe. Hyperpigmentation scarring from previous pressure injury L scapula. Full Thickness pressure injury with undermining Thoracic spine. Base of wound moist 80% viability, 20% slough. Bone is palpable. Small amt non-odorous serous exudate noted. Periwound indurated with darker skin tone. (L)7.5cm x (W)7.5cm x (D)0.5cm,Undermining clockwise 6-8 by 3.5cm @6o'clock. Full thickness pressure injury Lumbar spine. Base of wound 75% viable, 25% slough. Bone is palpable. Small amt non-odorous serous exudate noted(L)2cm x (W)2.5cm. Full thickness pressure injury with undermining L trochanter. Base of wound 75% viable, 25% soft necrosis. Bone is palpable. Slough noted along edges.Mild odor noted. Periwound indurated. (L)3.9cm x (W)4cm x (D)1.8cm,undermining clockwise 9-3 by 4.1cm @30'clock. Full thickness pressure injury L iliac. Base of wound moist with scattered slough. Edges flat and adherent to base of wound. Small amt non-odorous serous exudate noted. Bone is palpable. Periwound without erythema or induration.(L)5cm x (W)3cm x (D)0.2cm. Resolving pressure injury sacrum . [place] epithelial at base of wound. Edges adherent but dark ,without induration or erythema periwound.(L)3cm x (W)5.5cm. Full thickness pressure injury with undermining R trochanter. Base of wound 75% viable ,25% slough noted. Mild odor noted. Small amt brown exudate noted. Periwound dark and indurated.(L)5.7cm x (W)7cm x (D)2cm, undermining clockwise 12-12 by 3.3cm @ 6o'clock. Full thickness pressure injury R ischium.Base of wound 90% necrotic, 10% slough. Periwound indurated with darker skin tone without elevation in skin temp. Mild odor noted. Small amt brown exudate noted.(L)5.5cm x (W)3cm. Tx.Plan: Cleanse wounds with Dakin's 0.125% segun. Loosely pack wounds with Dakin's moist Kerlix Gauze. Apply Moisture Barrier Paste periwound. Cover wounds with Optifoam drsgs Daily and PRN. Apply Moisture Barrier Paste to sacral area. Cover with Optifoam drsg. Change every 3 days and prn. Apply Cavilon Skin Barrier to Both heels. Cover each heel with Optifoam drsg. Change every 7 days and prn. APM/NATASHA mattress overlay. Reposition at least every 2hours or as tolerated. Place pillow between knees. Off-load heels with Pillow.
[2019-02-19] MEDS: levETIRAcetam 500mg/5ml Liquid GT SCH ×2 (08:38→20:30)
[2019-02-19] MEDS: Metoprolol Tartrate 50mg tab GT SCH ×2 (08:38→20:30)
[2019-02-19] MEDS: Aspirin Baby 81mg GT SCH (08:38)
--- NOTE | 2019-02-19 08:44 | History and Physical Report ---
DATE OF ADMISSION: 02/18/2019 CHIEF COMPLAINT: Sepsis, anemia, and respiratory failure. HISTORY OF PRESENT ILLNESS: This is an unfortunate 73-year-old male. He has a prior history of encephalopathy, stroke, seizure disorder, and chronic respiratory failure. He has a history of multiple wounds, recurrent pneumonia, urinary tract infections, history of pulmonary tuberculosis, status post treatment. He was transferred from a [facility] facility with complaints of abnormal laboratories. On evaluation in the emergency room, the patient had a white count of 22,000 and hemoglobin of 7.5. His sodium was 155 with a BUN of 100. He had evidence of urinary tract infection. The patient was reyes cultured. He has been started on broad-spectrum IV antibiotics and now admitted for further evaluation and care. He is unable to provide any history as he is nonverbal. PAST MEDICAL HISTORY: As above. PAST SURGICAL HISTORY: Includes a history of a trach and a G-tube. CURRENT MEDICATIONS: Reconciled and reviewed. ALLERGIES: None. FAMILY HISTORY: None. SOCIAL HISTORY: There is no known history of tobacco, ethanol, or drugs. REVIEW OF SYSTEMS: From the patient is unobtainable. PHYSICAL EXAMINATION: VITAL SIGNS: Temperature 98.6, pulse 83, respirations 15, and blood pressure 102/49. GENERAL: The patient is a chronically ill-appearing thin male, in no apparent distress. HEART: Regular rate and rhythm. LUNGS: Clear. ABDOMEN: Soft, nontender, and nondistended. EXTREMITIES: Without clubbing or cyanosis. The patient has multiple wounds and contractures. LABORATORY DATA: White count 23, hemoglobin 7.5, and platelets 310,000. Coags are normal. Sodium 155, potassium 5.1, chloride 114, bicarb 39, BUN 100, and creatinine was 1.3. ASSESSMENT: This is an unfortunate male with a history of chronic respiratory failure, encephalopathy, stroke, and seizure disorder, admitted with sepsis, hypernatremia, dehydration, acute renal failure, and anemia. PLAN: 1. IV hypotonic fluids. 2. Broad-spectrum IV antibiotics. 3. Transfuse for hemoglobin less than 7. 4. Check stool for occult blood. 5. Follow up cultures. 6. Intravenous antibiotics. 7. ID, Pulmonary, Cardiology, Renal, and Infectious Disease consultations will be obtained. Jarrod Vásquez M.D. DR: CLARA JOB#: [id number] CC:
--- NOTE | 2019-02-19 10:00 | NUR ---
NURSE NOTES: WOCN at bedside,doing wound assessment,measuring and drsg changes assited with RN Caroline Little.
[2019-02-19] MEDS: Dakin's 0.125% Soln (Quarter Strength) 16oz TOPIC SCH (10:29)
--- NOTE | 2019-02-19 10:55 | NUR ---
NURSE NOTES: Bolus 500 ml NS done rechecked BP 107/55, BP improved,but pt still with low grade fever T99.5 F, Tylenol 650 mg GT given,bld transfusion not started ,will continue to monitor Temp until stable so blood can be transfused.
--- NOTE | 2019-02-19 12:15 | NUR ---
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 2) Swallowing difficulty r/t dysphagia, respiratory status as evidenced by pt is PEG dep, trach/vent dep. . CURRENT TF: Osmolite 1.5 @40 ml + Prosource x4 ENTERAL NUTRITION RECOMMENDATIONS: Vital AF 1.2 @ 65ml/hr x 24 hrs to provide 1560ml, 1872kcal, 117g prot, 1265ml free water - Rec TF change to vital 1.2. Start @25ml/hr. advance as tolerated 10ml q4-6 hrs to goal. - Meets 100% est kcal and protein needs. - HOB over 30 degrees/ water flush per MD ADDITIONAL RECOMMENDATIONS: 1) WOUND HEALING: Add YOVANI BID Add VIT C 250mg BID Add Zn SO4 220mg daily for 10 days 2) RECALIBRATED BED SCALE FOR ACCURATE CBW + weekly wt monitoring given underweight status 3) Check lytes daily, replete as needed 4) PER SNF: FEBRUARY 2019 WEIGHT 125 LBS + HEIGHT OF 67 INCHES. .
--- NOTE | 2019-02-19 15:21 | NUR ---
CASE MANAGEMENT:REVIEW 73 YR OLD MALE BIBA FROM [facility] PMH: TRACH/VENT/GTUBE CC: ABNORMAL LABS SI: SEPSIS. UTI. PNA 98.2 71 23 97/54 97% ON VENT SUPPORT WBC+23.5 H/H-7.5/25.0 IS: 1L NS BOLUS URINE CX ABD US CXR BLOOD CX WOUND CX : TO STEP DOWN UNIT INTERQUAL CRITERIA MET
--- NOTE | 2019-02-19 15:39 | Consultation ---
History of Present Illness General Date patient seen: Feb 19, 2019 Chief Complaint: Abnormal Labs Present Illness HPI This is a 73-year-old male well-known to me from multiple prior admissions who presented with sepsis rest lala failure and abnormal labs. On admission patient continues to have worsening wounds that require significant amount of care. Surgery called to evaluate. Patient seen, patient evaluate, chart reviewed. Family is not present with patient during this admission at this time. Patient unable to provide valid history or any recent events. Allergies: Coded Allergies: No Known Allergies (Unverified , 01/27/17) Medication History Scheduled Amlodipine Besylate* (Amlodipine Besylate*), 10 MG GT DAILY, (Reported) Aspirin* (Aspirin*), 81 MG GT DAILY, (Reported) Atorvastatin Calcium* (Lipitor*), 10 MG GT BEDTIME Doxazosin Mesylate* (Cardura*), 1 MG GT QHS, (Reported) Heparin Sodium,Porcine/Ns/Pf (Heparin), 5,000 UNIT SUBQ EVERY 12 HOURS, ( Reported) Lansoprazole* (Lansoprazole*), 30 MG ORAL Q12HR Levetiracetam* (Levetiracetam*), 750 MG GT BID, (Reported) Metoprolol Tartrate* (Metoprolol Tartrate*), 50 MG GT EVERY 12 HOURS, (Reported) Multivitamins* (Multivitamins*), 1 TAB GT DAILY, (Reported) Scheduled PRN Dextran 70/Hypromellose (Artificial Tears Eye Drops*), 2 DROP BOTH EYES for DRY EYES, (Reported) Hydrocodone Bit/Acetaminophen 5-325* ([place] 5-325*), 1 TAB GT Q8HR PRN for For Pain, (Reported) Discontinued Medications Ascorbic Acid* (Ascorbic Acid*), 500 MG GT DAILY, (Reported) Discontinued Reason: Therapy completed Docusate Sodium* (Colace*), 100 MG GT DAILY, (Reported) Discontinued Reason: Therapy completed Isoniazid (Isoniazid), 300 MG GT DAILY, (Reported) Discontinued Reason: Therapy completed Protein Supplement (Promod), 30 ML GT DAILY, (Reported) Discontinued Reason: Therapy completed Pyrazinamide (Pyrazinamide), 1,000 MG GT DAILY, (Reported) Discontinued Reason: Therapy completed Rifampin (Rifampin), 600 MG GT DAILY, (Reported) Discontinued Reason: Therapy completed Patient History Limited by: medical condition History Provided By: Medical Record, PMD Healthcare decision maker Resuscitation status Full Code Advanced Directive on File Past Medical/Surgical History Past Medical/Surgical History: (1) Decubitus ulcer (2) Anemia (3) Toxic metabolic encephalopathy (4) Dementia (5) Dyspnea (6) Respiratory distress (7) Hyperlipidemia (8) Aspiration pneumonia (9) Aspiration pneumonia (10) Vitamin B 12 deficiency (11) Encephalopathy (12) Status epilepticus (13) HTN (hypertension) (14) Encephalopathy acute (15) BPH (benign prostatic hyperplasia) (16) Abnormal LFTs (17) Probable sepsis (18) Positive RPR test (19) decu (20) Leukocytosis (21) Sepsis (22) Pneumonia (23) UTI (urinary tract infection), bacterial Review of Systems ROS Narrative Unable to obtain from patient given current medical condition Physical Exam General Appearance: no apparent distress Lines, tubes and drains: peripheral HEENT: mucous membranes moist Neck: normal inspection, other Respiratory/Chest: decreased breath sounds Cardiovascular/Chest: normal rate Abdomen: soft, no organomegaly, no mass, feeding tube, other Extremities: other Skin Exam: other Neurologic: other Last 24 Hour Vital Signs Date Time Temp Pulse Resp B/P (MAP) Pulse Ox O2 Delivery O2 Flow Rate FiO2 02/19/19 13:25 72 18 40 02/19/19 12:07 Mechanical Ventilator 02/19/19 12:00 40 02/19/19 11:59 99.0 72 22 101/48 (65) 99 02/19/19 11:51 73 02/19/19 11:01 99.1 02/19/19 10:53 99.5 73 18 107/55 (72) 99 02/19/19 10:45 69 17 40 02/19/19 08:45 73 18 40 02/19/19 08:38 75 81/40 02/19/19 08:38 75 81/40 02/19/19 08:03 99.7 75 18 81/40 (54) 99 02/19/19 08:00 40 02/19/19 08:00 Mechanical Ventilator 02/19/19 08:00 75 02/19/19 07:30 76 19 40 02/19/19 05:18 86 19 40 02/19/19 04:00 40 02/19/19 04:00 98.8 89 23 94/91 (92) 100 02/19/19 04:00 Mechanical Ventilator 02/19/19 04:00 82 02/19/19 03:23 83 15 40 02/19/19 01:25 77 18 40 02/19/19 00:00 98.6 83 15 102/49 (66) 100 02/19/19 00:00 86 02/19/19 00:00 40 02/19/19 00:00 Mechanical Ventilator 02/18/19 23:12 84 17 40 02/18/19 21:22 88 20 40 02/18/19 20:11 74 100/54 02/18/19 20:00 98.1 87 22 105/52 (69) 99 02/18/19 20:00 Mechanical Ventilator 02/18/19 20:00 40 02/18/19 20:00 78 02/18/19 19:37 Mechanical Ventilator 02/18/19 19:30 84 20 40 02/18/19 18:30 98.2 85 17 100/56 (71) 100 02/18/19 17:55 98.3 85 15 97/46 99 Mechanical Ventilator 40 02/18/19 17:44 98.4 85 15 97/46 99 Mechanical Ventilator 40 02/18/19 17:10 82 18 40 02/18/19 16:03 40 02/18/19 16:01 82 17 Mechanical Ventilator 40 Intake and Output 02/18/19 02/19/19 19:00 07:00 Intake Total 30 ml 1741 ml Output Total 10 ml Balance 20 ml 1741 ml Intake Free Water 30 ml 120 ml IV Total 1331 ml Tube Feeding 0 ml 290 ml Output Urine Total 10 ml Laboratory Tests Test 02/19/19 03:45 White Blood Count 17.5 K/UL (4.8-10.8) H Red Blood Count 2.25 M/UL (4.70-6.10) L Hemoglobin 6.2 G/DL (14.2-18.0) *L Hematocrit 20.8 % (42.0-52.0) L Mean Corpuscular Volume 93 FL (80-99) Mean Corpuscular Hemoglobin 27.4 PG (27.0-31.0) Mean Corpuscular Hemoglobin Concent 29.6 G/DL (32.0-36.0) L Red Cell Distribution Width 18.7 % (11.6-14.8) H Platelet Count 294 K/UL (150-450) Mean Platelet Volume 5.3 FL (6.5-10.1) L Neutrophils (%) (Auto) % (45.0-75.0) Lymphocytes (%) (Auto) % (20.0-45.0) Monocytes (%) (Auto) % (1.0-10.0) Eosinophils (%) (Auto) % (0.0-3.0) Basophils (%) (Auto) % (0.0-2.0) Differential Total Cells Counted 100 Neutrophils % (Manual) 88 % (45-75) H Lymphocytes % (Manual) 4 % (20-45) L Monocytes % (Manual) 5 % (1-10) Eosinophils % (Manual) 2 % (0-3) Basophils % (Manual) 1 % (0-2) Band Neutrophils 0 % (0-8) Platelet Estimate Adequate Platelet Morphology Normal Hypochromasia 4+ Anisocytosis 2+ Sodium Level 154 MMOL/L (136-145) H Potassium Level 3.9 MMOL/L (3.5-5.1) Chloride Level 113 MMOL/L (98-107) H Carbon Dioxide Level 35 MMOL/L (21-32) H Anion Gap 6 mmol/L (5-15) Blood Urea Nitrogen 87 mg/dL (7-18) H Creatinine 1.1 MG/DL (0.55-1.30) Estimat Glomerular Filtration Rate mL/min (>60) Glucose Level 122 MG/DL (74-106) H Calcium Level 8.9 MG/DL (8.5-10.1) Total Bilirubin 0.5 MG/DL (0.2-1.0) Aspartate Amino Transf (AST/SGOT) 42 U/L (15-37) H Alanine Aminotransferase (ALT/SGPT) 18 U/L (12-78) Alkaline Phosphatase 591 U/L (46-116) H Total Protein 7.3 G/DL (6.4-8.2) Albumin 1.0 G/DL (3.4-5.0) L Globulin 6.3 g/dL Albumin/Globulin Ratio 0.2 (1.0-2.7) L Microbiology Date/Time Source Procedure Growth Status 02/18/19 17:00 Back Gram Stain - Final Resulted 02/18/19 17:00 Back Wound Culture Pending Resulted Height (Feet): 6 Height (Inches): 0.00 Weight (Pounds): 130 Medications Current Medications Medications (Trade) Dose Ordered Sig/Iram Route PRN Reason Start Time Stop Time Status Last Admin Dose Admin Acetaminophen (Tylenol) 650 mg Q4H PRN ORAL Mild Pain/Temp > 100.5 02/18/19 19:45 03/20/19 19:44 02/19/19 10:31 Acetaminophen/ Hydrocodone Bitart ([place] 5/325) 1 tab Q8H PRN GT For Pain 02/18/19 19:45 02/25/19 19:44 Albuterol/ Ipratropium (Albuterol/ Ipratropium) 3 ml Q4H PRN HHN Shortness of Breath 02/18/19 19:45 02/23/19 19:44 Amlodipine Besylate (Norvasc) 10 mg DAILY GT 02/19/19 09:00 03/21/19 08:59 Artificial Tears (Akwa-Tears) 2 drop Q2H PRN BOTH EYES DRY EYES 02/18/19 19:45 03/20/19 19:44 Aspirin (ASA) 81 mg DAILY GT 02/19/19 09:00 03/21/19 08:59 02/19/19 08:38 Atorvastatin Calcium (Lipitor) 10 mg BEDTIME GT 02/18/19 21:00 03/20/19 20:59 02/18/19 20:11 Doxazosin Mesylate (Cardura) 1 mg QHS GT 02/18/19 21:00 03/20/19 20:59 02/18/19 20:11 Lansoprazole (Prevacid) 30 mg Q12HR GT 02/18/19 21:00 03/20/19 20:59 02/19/19 08:38 Levetiracetam (Keppra) 750 mg Q12HR GT 02/18/19 21:00 03/20/19 20:59 02/19/19 08:38 Metoprolol Tartrate (Lopressor) 50 mg EVERY 12 HOURS GT 02/18/19 21:00 03/20/19 20:59 Multivitamins (Multivitamins) 1 tab DAILY GT 02/19/19 09:00 03/21/19 08:59 02/19/19 08:38 Piperacillin Sod/ Tazobactam Sod 3.375 gm/Sodium Chloride 110 ml @ 27.5 mls/hr EVERY 8 HOURS IVPB 02/18/19 22:00 02/23/19 21:59 02/19/19 14:06 Sodium Hypochlorite (Dakin's Quarter Strength) 1 applic DAILY TOPIC 02/19/19 10:00 03/21/19 09:59 02/19/19 10:29 Sodium Chloride 1,000 ml @ 100 mls/hr Q10H IV 02/18/19 19:45 03/20/19 19:44 02/19/19 05:11 Vancomycin HCl (Vanco rx to dose) 1 ea DAILY PRN MISC Per rx protocol 02/18/19 19:45 03/20/19 19:44 Vancomycin HCl 750 mg/Sodium Chloride 275 ml @ 183.333 mls/hr Q12H IVPB 02/19/19 06:00 02/24/19 05:59 02/19/19 05:08 Assessment/Plan Problem List: (1) Leukocytosis Assessment & Plan: Sepsis with leukocytosis. Labs trending down. On IV antibiotics. Continue current treatment plan ICD Codes: D72.829 - Elevated white blood cell count, unspecified SNOMED: 639383252, 440502654 (2) Decubitus ulcer Assessment & Plan: Pt presented on admission with multiple pressure injuries. Resolving pressure injury L occipital. Dry pink epithelial noted. Skin assessed under trach collar and no areas of concerns noted . R and L ears dry . Full thickness pressure injury with undermining thoracic spine . Base of wound 75% granular with 25% fibrinous slough. Mild odor noted.(L)8.5cm x (W)6.5cmx(D) 1cm, undermining clockwise 6-1 by 3cm @12o'clock. Full thickness pressure injury L trochanter. 100% mixed necrosis/slough at base of wound and undermined borders.Non-blanchable erythema with induration noted periwound. Mild odor noted .(L)3.5cm x (W)4.5cm. Resolving DTPI L ischium .Centrally wound is red and fluctuant .Bone is palpable. Black with red tinged indurated borders noted. (L) (L)4.4cm x (W) 3.2cm. Ful thickness pressure injury R Iliac with 10% velazquez slough centrally.90% granular.Edges adherent and flat. (L)3cm x (W)3.2cm x(D)0.2cm. No odor or exudate noted.Darker skin tone without fluctuance noted periwound. Full thickness pressure injury with undermining R trochanter. Base of wound 60^ beefy red with 40% velazquez slough.erythejma noted along borders. Small amt seropurulent exudate that is mildly odorous.(L)5.5cm x (W)6.6cm x (D)1.5cm, undermining clockwise 12-12 by 4.5cm @3o'clock. Full thickness pressure injury R ischium (L)4.2cm x (W)5.5cm x(D)1.6cm, undermining 12-12 by 1.8cm @12o'clock .Base of wound 60% granular ,40% velazquez slough undermined borders.Wound has mild odor with small amt seropurulent exudate.darker skin tone that is indurated periwound. Resolving pressure injury sacrum . Base of wound dry with pink epithelial.with scattered shearing within base of wound. L heel boggy with non-blanchable erythema. DTPI R heel and Lateral aspect .Base of wound is maroon with fluctuance. (L) 4.5cm x (W)7.3cm. Tx.Plan. Cleanse wounds Thoracic and lumbar spine with Dakin's 0.125% segun. Pack with Dakin's moist gauze. Apply Moisture Barrier Paste periwound. Cover each wound with Optifoam drsg.Twice Daily and prn. Cleanse wound L trochanter and L ischium with Dakin's 0.125% segun. Pack with Dakin's moist Gauze.Apply Moisture Barrier paste periwound. Cover with Optifoam drsg. Twice daily and prn. Cleanse wounds R iliac ,R trochanter,R ischium with Dakin's 0.125% segun. Pack with Dakin's moist gauze. Apply Moisture Barrier Paste periwound. Cover with Optifoam drsg Twice daily and prn. Apply Moisture Barrier paste to sacrum. Cover with Optifoam drsg. Change every 3 days and prn. Apply Cavilon Skin Barrier to Both heels. Cover each heel with Optifoam drsg. Change every 7 days and prn. Air Fluidized Mattress. Reposition at least every 2hours or as tolerated. Off-load heels with pillow. ICD Codes: L89.90 - Pressure ulcer of unspecified site, unspecified stage SNOMED: 310160266 (3) Sepsis Assessment & Plan: Continue with IV antibiotics as per infectious disease. Awaiting blood cultures. Trend labs Thank you ICD Codes: A41.9 - Sepsis, unspecified organism SNOMED: 02324201 (4) Anemia ICD Codes: D64.9 - Anemia, unspecified SNOMED: 784154415 (5) Dementia ICD Codes: F03.90 - Unspecified dementia without behavioral disturbance SNOMED: 79881233 (6) Dyspnea ICD Codes: R06.00 - Dyspnea, unspecified SNOMED: 980802205 (7) Respiratory distress ICD Codes: R06.03 - Acute respiratory distress SNOMED: 833470304 (8) Hyperlipidemia ICD Codes: E78.5 - Hyperlipidemia, unspecified SNOMED: 03610478 (9) Aspiration pneumonia ICD Codes: J69.0 - Pneumonitis due to inhalation of food and vomit SNOMED: 089387776 (10) Aspiration pneumonia ICD Codes: J69.0 - Pneumonitis due to inhalation of food and vomit SNOMED: 688652413 (11) Vitamin B 12 deficiency ICD Codes: E53.8 - Deficiency of other specified B group vitamins SNOMED: 894489051 (12) Encephalopathy ICD Codes: G93.40 - Encephalopathy, unspecified SNOMED: 53619201 (13) Pneumonia ICD Codes: J18.9 - Pneumonia, unspecified organism SNOMED: 756437465 (14) Status epilepticus ICD Codes: G40.901 - Epilepsy, unspecified, not intractable, with status epilepticus SNOMED: 483067665 (15) HTN (hypertension) ICD Codes: I10 - Essential (primary) hypertension SNOMED: 95472946 (16) Encephalopathy acute ICD Codes: G93.40 - Encephalopathy, unspecified SNOMED: 87516152, 850342642 (17) BPH (benign prostatic hyperplasia) ICD Codes: N40.0 - Benign prostatic hyperplasia without lower urinary tract symptoms SNOMED: 099222198, 238138272 (18) Abnormal LFTs ICD Codes: R94.5 - Abnormal results of liver function studies SNOMED: 725357034 (19) UTI (urinary tract infection), bacterial ICD Codes: N39.0 - Urinary tract infection, site not specified; A49.9 - Bacterial infection, unspecified SNOMED: 344832875 (20) Probable sepsis ICD Codes: A41.9 - Sepsis, unspecified organism SNOMED: 293143686 (21) Toxic metabolic encephalopathy ICD Codes: G92 - Toxic encephalopathy SNOMED: 745972625 (2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 ICD Codes: 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
--- NOTE | 2019-02-19 16:00 | NUR ---
NURSE NOTES: Pt febrile again,T100.9 F,Tylenol 650 mg GT given,cold compress applied to forehead and bilat armpits.,will continue to monitor pt's temp.
--- NOTE | 2019-02-19 17:00 | NUR ---
NURSE NOTES: Family member at bedside,pt with BM ,tarry black stools in mod amount.bed abth given,kept dry and clean.
--- NOTE | 2019-02-19 19:20 | NUR ---
HAND-OFF: Report given nathan Hutchison RN,will call Dr Vásquez to inform that pt had fever all day,Blood transfusion not given. .
--- NOTE | 2019-02-19 19:21 | NUR ---
NURSE NOTES: Received report from LALA Morales. Patient seen in bed in semi position. Patient is on vent with setting of portex 87, AC 12, TV 500, Fi02 40%, PEEP 5. sp02 98%. patient is non verbal. No S/Sx of pain is noted via FLACC. On GTF of osmolite 1.5 at 40cc/hr. Noted IV site to right left arm 20g. IVF of 1/2 NS at 100cc/hr. Bed is in lowest position. Call light is within easy reach while in bed. will continue to monitor.
--- NOTE | 2019-02-19 20:10 | NUR ---
NURSE NOTES: Blood transfusion started. VS 97.4, 79, 120/60 . will continue to monitor.
--- NOTE | 2019-02-19 20:25 | NUR ---
NURSE NOTES: Patient tolerating blood transfusion. VSS 97.6, 78, 115/50, will continue to monitor.
[2019-02-19] MEDS: Doxazosin 1mg Tab GT SCH (20:30)
--- NOTE | 2019-02-19 21:50 | NUR ---
NURSE NOTES: Blood transfusion completed. VSS. 112/60, 97.6, 89. 19
--- NOTE | 2019-02-19 22:12 | Consultation ---
Consult Note Consult Note 73-year-old male chronically ill who is bed and vent dependent and well known to me. He was transferred from [facility] facility due to severe renal impairment and anemia . At the residential, the patient has been chronically ill but overall same with vent and bed bound status. He has been noted to have worsening leukocytosis, and hyponatremia. In the ER, the patient had a to have significant impairment in lab data requiring acute care. Patient also with leukocytosis and being admitted for sepsis He now requires inpatient evaluation and care. I was called to assist with vent management and care PAST MEDICAL HISTORY: stroke, seizure disorder, and chronic respiratory failure, decubitus, h/o TB and pneumonia. h/o sepsis PAST SURGICAL HISTORY: Includes a prior history of a trach and a G-tube. CURRENT MEDICATIONS: Reconciled and reviewed. ALLERGIES: None. FAMILY HISTORY: None. SOCIAL HISTORY: There is no known history of tobacco, ethanol, or drugs. resides at [facility] REVIEW OF SYSTEMS: unobtainable as he is nonverbal. PHYSICAL EXAMINATION: GENERAL APPEARANCE: The patient is a chronically ill-appearing male, in no apparent distress. unresponsive. NECK: Supple. Trach site is clean, dry, and intact. CARDS: RRR without MRG LUNGS: occasional rhonchi. moderate air entry; no wheeze ABDOMEN: Soft, nontender, and nondistended. GT EXTREMITIES: No clubbing or cyanosis. reduced skin turgor multiple decubitus NEURO: obtunded Labs Test 02/18/19 15:00 02/18/19 15:24 02/19/19 03:45 White Blood Count 23.5 K/UL (4.8-10.8) 17.5 K/UL (4.8-10.8) Red Blood Count 2.69 M/UL (4.70-6.10) 2.25 M/UL (4.70-6.10) Hemoglobin 7.5 G/DL (14.2-18.0) 6.2 G/DL (14.2-18.0) Hematocrit 25.0 % (42.0-52.0) 20.8 % (42.0-52.0) Mean Corpuscular Volume 93 FL (80-99) 93 FL (80-99) Mean Corpuscular Hemoglobin 28.0 PG (27.0-31.0) 27.4 PG (27.0-31.0) Mean Corpuscular Hemoglobin Concent 30.1 G/DL (32.0-36.0) 29.6 G/DL (32.0-36.0) Red Cell Distribution Width 18.1 % (11.6-14.8) 18.7 % (11.6-14.8) Platelet Count 310 K/UL (150-450) 294 K/UL (150-450) Mean Platelet Volume 5.1 FL (6.5-10.1) 5.3 FL (6.5-10.1) Neutrophils (%) (Auto) % (45.0-75.0) % (45.0-75.0) Lymphocytes (%) (Auto) % (20.0-45.0) % (20.0-45.0) Monocytes (%) (Auto) % (1.0-10.0) % (1.0-10.0) Eosinophils (%) (Auto) % (0.0-3.0) % (0.0-3.0) Basophils (%) (Auto) % (0.0-2.0) % (0.0-2.0) Differential Total Cells Counted 100 100 Neutrophils % (Manual) 93 % (45-75) 88 % (45-75) Lymphocytes % (Manual) 1 % (20-45) 4 % (20-45) Monocytes % (Manual) 3 % (1-10) 5 % (1-10) Eosinophils % (Manual) 1 % (0-3) 2 % (0-3) Basophils % (Manual) 0 % (0-2) 1 % (0-2) Band Neutrophils 2 % (0-8) 0 % (0-8) Toxic Granulation 1+ Platelet Estimate Adequate Adequate Platelet Morphology Normal Normal Polychromasia 1+ Hypochromasia 2+ 4+ Anisocytosis 2+ 2+ Prothrombin Time 11.4 SEC (9.30-11.50) Prothromb Time International Ratio 1.1 (0.9-1.1) Activated Partial Thromboplast Time 33 SEC (23-33) Sodium Level 155 MMOL/L (136-145) 154 MMOL/L (136-145) Potassium Level 5.1 MMOL/L (3.5-5.1) 3.9 MMOL/L (3.5-5.1) Chloride Level 114 MMOL/L (98-107) 113 MMOL/L (98-107) Carbon Dioxide Level 39 MMOL/L (21-32) 35 MMOL/L (21-32) Anion Gap 1 mmol/L (5-15) 6 mmol/L (5-15) Blood Urea Nitrogen 100 mg/dL (7-18) 87 mg/dL (7-18) Creatinine 1.3 MG/DL (0.55-1.30) 1.1 MG/DL (0.55-1.30) Estimat Glomerular Filtration Rate mL/min (>60) mL/min (>60) Glucose Level 120 MG/DL (74-106) 122 MG/DL (74-106) Lactic Acid Level 1.20 mmol/L (0.4-2.0) Calcium Level 10.1 MG/DL (8.5-10.1) 8.9 MG/DL (8.5-10.1) Phosphorus Level 4.9 MG/DL (2.5-4.9) Magnesium Level 3.6 MG/DL (1.8-2.4) Total Bilirubin 0.6 MG/DL (0.2-1.0) 0.5 MG/DL (0.2-1.0) Aspartate Amino Transf (AST/SGOT) 54 U/L (15-37) 42 U/L (15-37) Alanine Aminotransferase (ALT/SGPT) 26 U/L (12-78) 18 U/L (12-78) Alkaline Phosphatase 772 U/L (46-116) 591 U/L (46-116) Total Creatine Kinase 54 U/L (26-308) Creatine Kinase MB 0.8 NG/ML (0.0-3.6) Creatine Kinase MB Relative Index 1.4 Troponin I 0.000 ng/mL (0.000-0.056) Pro-B-Type Natriuretic Peptide 1490 pg/mL (0-125) Total Protein 8.7 G/DL (6.4-8.2) 7.3 G/DL (6.4-8.2) Albumin 1.4 G/DL (3.4-5.0) 1.0 G/DL (3.4-5.0) Globulin 7.3 g/dL 6.3 g/dL Albumin/Globulin Ratio 0.2 (1.0-2.7) 0.2 (1.0-2.7) Lipase 237 U/L (73-393) Urine Color Yellow Urine Appearance Cloudy Urine pH 6.5 (4.5-8.0) Urine Specific [place] 1.010 (1.005-1.035) Urine Protein 2+ (NEGATIVE) Urine Glucose (UA) Negative (NEGATIVE) Urine Ketones Negative (NEGATIVE) Urine Blood 4+ (NEGATIVE) Urine Nitrite Negative (NEGATIVE) Urine Bilirubin Negative (NEGATIVE) Urine Urobilinogen 8 MG/DL (0.0-1.0) Urine Leukocyte Esterase 3+ (NEGATIVE) Urine RBC 2-4 /HPF (0 - 0) Urine WBC 30-40 /HPF (0 - 0) Urine Squamous Epithelial Cells Few /LPF (NONE/OCC) Urine Bacteria Many /HPF (NONE) ASSESSMENT: toxic metabolic encephalopathy, history of stroke, chronic respiratory failure, hypernatremia, acute on chronic renal failure, chronic encephalopathy, seizure disorder, pulmonary tuberculosis, and anemia possible sepsis, leukocytosis, possible gib, leukocytosis, possible sepsis PLAN care noted transfuse IV antibiotics, empiric respiratory care Ventilatory support- no wean and maintain AC SNF meds supportive care as is suction oxygen therapy noted prognosis poor monitor for infection impression, plan, and exam edited and reviewed in detail care discussed with Nakul Elena MD Feb 19, 2019 22:11
--- NOTE | 2019-02-19 22:15 | Pulmonology Progress Note ---
Subjective Allergies: Coded Allergies: No Known Allergies (Unverified , 01/27/17) Objective Last 24 Hour Vital Signs Date Time Temp Pulse Resp B/P (MAP) Pulse Ox O2 Delivery O2 Flow Rate FiO2 02/19/19 21:15 75 21 40 02/19/19 20:30 77 118/80 02/19/19 20:00 97.2 78 21 112/50 (70) 100 02/19/19 20:00 40 02/19/19 20:00 Mechanical Ventilator 02/19/19 19:16 78 22 40 02/19/19 19:12 78 02/19/19 17:28 78 24 40 02/19/19 16:22 99.1 02/19/19 16:00 73 02/19/19 16:00 40 02/19/19 16:00 100.9 75 20 118/60 (79) 100 02/19/19 16:00 Mechanical Ventilator 02/19/19 15:00 72 18 40 02/19/19 13:25 72 18 40 02/19/19 12:07 Mechanical Ventilator 02/19/19 12:00 40 02/19/19 11:59 99.0 72 22 101/48 (65) 99 02/19/19 11:51 73 02/19/19 10:53 99.5 73 18 107/55 (72) 99 02/19/19 10:45 69 17 40 02/19/19 08:45 73 18 40 02/19/19 08:38 75 81/40 02/19/19 08:38 75 81/40 02/19/19 08:03 99.7 75 18 81/40 (54) 99 02/19/19 08:00 40 02/19/19 08:00 Mechanical Ventilator 02/19/19 08:00 75 02/19/19 07:30 76 19 40 02/19/19 05:18 86 19 40 02/19/19 04:00 40 02/19/19 04:00 98.8 89 23 94/91 (92) 100 02/19/19 04:00 Mechanical Ventilator 02/19/19 04:00 82 02/19/19 03:23 83 15 40 02/19/19 01:25 77 18 40 02/19/19 00:00 98.6 83 15 102/49 (66) 100 02/19/19 00:00 86 02/19/19 00:00 40 02/19/19 00:00 Mechanical Ventilator 02/18/19 23:12 84 17 40 Intake and Output 02/18/19 02/19/19 18:59 06:59 Intake Total 1631 ml Output Total 10 ml Balance -10 ml 1631 ml Intake Free Water 150 ml IV Total 1231 ml Tube Feeding 250 ml Output Urine Total 10 ml Microbiology Date/Time Source Procedure Growth Status 02/18/19 15:24 Urine,Clean Catch Urine Culture - Preliminary Resulted 02/18/19 17:00 Back Gram Stain - Final Resulted 02/18/19 17:00 Back Wound Culture Pending Resulted Laboratory Tests 02/19/19 03:45: White Blood Count 17.5H, Red Blood Count 2.25L, Hemoglobin 6.2*L, Hematocrit 20.8L, Mean Corpuscular Volume 93, Mean Corpuscular Hemoglobin 27.4, Mean Corpuscular Hemoglobin Concent 29.6L, Red Cell Distribution Width 18.7H, Platelet Count 294, Mean Platelet Volume 5.3L, Neutrophils (%) (Auto) , Lymphocytes (%) (Auto) , Monocytes (%) (Auto) , Eosinophils (%) (Auto) , Basophils (%) (Auto) , Differential Total Cells Counted 100, Neutrophils % ( Manual) 88H, Lymphocytes % (Manual) 4L, Monocytes % (Manual) 5, Eosinophils % ( Manual) 2, Basophils % (Manual) 1, Band Neutrophils 0, Platelet Estimate Adequate, Platelet Morphology Normal, Hypochromasia 4+, Anisocytosis 2+, Sodium Level 154H, Potassium Level 3.9, Chloride Level 113H, Carbon Dioxide Level 35H, Anion Gap 6, Blood Urea Nitrogen 87H, Creatinine 1.1, Estimat Glomerular Filtration Rate , Glucose Level 122H, Calcium Level 8.9, Total Bilirubin 0.5, Aspartate Amino Transf (AST/SGOT) 42H, Alanine Aminotransferase (ALT/SGPT) 18, Alkaline Phosphatase 591H, Total Protein 7.3, Albumin 1.0L, Globulin 6.3, Albumin/Globulin Ratio 0.2L Current Medications Medications (Trade) Dose Ordered Sig/Iram Route PRN Reason Start Time Stop Time Status Last Admin Dose Admin Acetaminophen (Tylenol) 650 mg Q4H PRN ORAL Mild Pain/Temp > 100.5 02/18/19 19:45 03/20/19 19:44 02/19/19 15:52 Acetaminophen/ Hydrocodone Bitart ([place] 5/325) 1 tab Q8H PRN GT For Pain 02/18/19 19:45 02/25/19 19:44 Albuterol/ Ipratropium (Albuterol/ Ipratropium) 3 ml Q4H PRN HHN Shortness of Breath 02/18/19 19:45 02/23/19 19:44 Amlodipine Besylate (Norvasc) 10 mg DAILY GT 02/19/19 09:00 03/21/19 08:59 Artificial Tears (Akwa-Tears) 2 drop Q2H PRN BOTH EYES DRY EYES 02/18/19 19:45 03/20/19 19:44 Aspirin (ASA) 81 mg DAILY GT 02/19/19 09:00 03/21/19 08:59 02/19/19 08:38 Atorvastatin Calcium (Lipitor) 10 mg BEDTIME GT 02/18/19 21:00 03/20/19 20:59 02/19/19 20:31 Doxazosin Mesylate (Cardura) 1 mg QHS GT 02/18/19 21:00 03/20/19 20:59 02/19/19 20:30 Lansoprazole (Prevacid) 30 mg Q12HR GT 02/18/19 21:00 03/20/19 20:59 02/19/19 20:32 Levetiracetam (Keppra) 750 mg Q12HR GT 02/18/19 21:00 03/20/19 20:59 02/19/19 20:30 Metoprolol Tartrate (Lopressor) 50 mg EVERY 12 HOURS GT 02/18/19 21:00 03/20/19 20:59 02/19/19 20:30 Multivitamins (Multivitamins) 1 tab DAILY GT 02/19/19 09:00 03/21/19 08:59 02/19/19 08:38 Piperacillin Sod/ Tazobactam Sod 3.375 gm/Sodium Chloride 110 ml @ 27.5 mls/hr EVERY 8 HOURS IVPB 02/18/19 22:00 02/23/19 21:59 02/19/19 21:58 Sodium Hypochlorite (Dakin's Quarter Strength) 1 applic DAILY TOPIC 02/19/19 10:00 03/21/19 09:59 02/19/19 10:29 Sodium Chloride 1,000 ml @ 100 mls/hr Q10H IV 02/18/19 19:45 03/20/19 19:44 02/19/19 15:51 Vancomycin HCl (Vanco rx to dose) 1 ea DAILY PRN MISC Per rx protocol 02/18/19 19:45 03/20/19 19:44 Vancomycin HCl 750 mg/Sodium Chloride 275 ml @ 183.333 mls/hr Q12H IVPB 02/19/19 06:00 02/24/19 05:59 02/19/19 18:11 Nakul Cisse MD Feb 19, 2019 22:15
--- NOTE | 2019-02-19 22:40 | NUR ---
NURSE NOTES: report given to LALA Carson
[2019-02-20] VITALS: BP 102/48
[2019-02-20 04:00] VITALS: BP 111/51
[2019-02-20] MEDS: Piperacillin/Tazobactam 3.375 GM in NS 110 ML IVPB SCH ×3 (05:04→22:06)
[2019-02-20 06:08] LABS: HEMATOCRIT 26.9 % (42.0-52.0); HEMOGLOBIN 8.3 G/DL (14.2-18.0); MEAN CORPUSCULAR VOLUME 90 FL (80-99); PLATELET COUNT 329 K/UL (150-450); RED BLOOD COUNT 2.97 M/UL (4.70-6.10); RED CELL DISTRIBUTION WIDTH 17.3 % (11.6-14.8); WHITE BLOOD COUNT 16.2 K/UL (4.8-10.8)
--- NOTE | 2019-02-20 07:17 | NUR ---
HAND-OFF: Report given to Arielle Mccoy RN.
--- NOTE | 2019-02-20 07:20 | NUR ---
NURSE NOTES: Report received from Yamileth Chopra RN.Pt asleep ,noted no resp distress,with trach tube to Vent ,on current settings,tolerating well,no signs of pain or discomfort,SR on the monitor,GTF Osmolite 1.5 at 40 ml/hr ,no residual noted,HOB elevated,Manzo cath in placed draining yellow urine ,PIV to BASIL intact with IVF 1/2 NS at 100ml/hr,skin warm and dry,with multiple pressure wounds,on P200 mattress,SR up x2,bed lock in lowest position,will continue with plans of care.
[2019-02-20 07:27] LABS: ALANINE AMINOTRANSFERASE 18 U/L (12-78); ALBUMIN/GLOBULIN RATIO 0.2 (1.0-2.7); ALKALINE PHOSPHATASE 603 U/L (46-116); ANION GAP 9 mmol/L (5-15); ASPARTATE AMINO TRANSFERASE 39 U/L (15-37); BILIRUBIN,TOTAL 0.6 MG/DL (0.2-1.0); BLOOD UREA NITROGEN 68 mg/dL (7-18); CALCIUM 8.7 MG/DL (8.5-10.1); CARBON DIOXIDE 31 MMOL/L (21-32); CHLORIDE 116 MMOL/L (98-107); CREATININE 1.1 MG/DL (0.55-1.30); POTASSIUM 3.7 MMOL/L (3.5-5.1); SODIUM 155 MMOL/L (136-145)
[2019-02-20 08:03] VITALS: BP 117/59
--- NOTE | 2019-02-20 08:14 | General Progress Note ---
Assessment/Plan Problem List: (1) Decubitus ulcer ICD Codes: L89.90 - Pressure ulcer of unspecified site, unspecified stage SNOMED: 850442622 (2) Anemia ICD Codes: D64.9 - Anemia, unspecified SNOMED: 687964472 (3) Sepsis ICD Codes: A41.9 - Sepsis, unspecified organism SNOMED: 26083968 (4) HTN (hypertension) ICD Codes: I10 - Essential (primary) hypertension SNOMED: 54421254 (5) Encephalopathy acute ICD Codes: G93.40 - Encephalopathy, unspecified SNOMED: 11142962, 320537461 (6) BPH (benign prostatic hyperplasia) ICD Codes: N40.0 - Benign prostatic hyperplasia without lower urinary tract symptoms SNOMED: 081761267, 540929988 (7) UTI (urinary tract infection), bacterial ICD Codes: N39.0 - Urinary tract infection, site not specified; A49.9 - Bacterial infection, unspecified SNOMED: 857036076 Status: stable, progressing Assessment/Plan: iv abx follow up cultures vent support resp rx suctioning as needed tube feeds wound care monitor h/h transfuse as needed sz rx poor prognosis Subjective ROS Limited/Unobtainable: Yes Constitutional: Reports: malaise, weakness HEENT: Reports: no symptoms Cardiovascular: Reports: no symptoms Respiratory: Reports: shortness of breath Gastrointestinal/Abdominal: Reports: difficulty swallowing Genitourinary: Reports: no symptoms Neurologic/Psychiatric: Reports: pre-existing deficit, seizure Endocrine: Reports: no symptoms Hematologic/Lymphatic: Reports: anemia Allergies: Coded Allergies: No Known Allergies (Unverified , 01/27/17) All Systems: reviewed and negative except above Subjective no events. s/p 2 units prbcs. on bleeding noted. on iv abx. Objective Last 24 Hour Vital Signs Date Time Temp Pulse Resp B/P (MAP) Pulse Ox O2 Delivery O2 Flow Rate FiO2 02/20/19 08:03 98.2 79 26 117/59 (78) 100 02/20/19 07:20 82 19 40 02/20/19 05:32 73 25 40 02/20/19 04:00 98.2 80 20 111/51 (71) 100 02/20/19 04:00 Mechanical Ventilator 02/20/19 04:00 40 02/20/19 03:26 71 02/20/19 02:49 76 26 40 02/20/19 01:21 72 28 40 02/20/19 00:00 98.6 74 26 102/48 (66) 100 02/20/19 00:00 Mechanical Ventilator 02/19/19 23:33 68 02/19/19 22:55 77 26 40 02/19/19 21:15 75 21 40 02/19/19 20:30 77 118/80 02/19/19 20:00 97.2 78 21 112/50 (70) 100 02/19/19 20:00 40 02/19/19 20:00 Mechanical Ventilator 02/19/19 19:16 78 22 40 02/19/19 19:12 78 02/19/19 17:28 78 24 40 02/19/19 16:22 99.1 02/19/19 16:00 73 02/19/19 16:00 40 02/19/19 16:00 100.9 75 20 118/60 (79) 100 02/19/19 16:00 Mechanical Ventilator 02/19/19 15:00 72 18 40 02/19/19 13:25 72 18 40 02/19/19 12:07 Mechanical Ventilator 02/19/19 12:00 40 02/19/19 11:59 99.0 72 22 101/48 (65) 99 02/19/19 11:51 73 02/19/19 10:53 99.5 73 18 107/55 (72) 99 02/19/19 10:45 69 17 40 02/19/19 08:45 73 18 40 02/19/19 08:38 75 81/40 02/19/19 08:38 75 81/40 Intake and Output 02/19/19 02/20/19 19:00 07:00 Intake Total 2140.0 ml 2395.13 ml Output Total 650 ml 800 ml Balance 1490.0 ml 1595.13 ml Intake Free Water 200 ml 400 ml IV Total 1320.0 ml 1265.13 ml Tube Feeding 440 ml 480 ml Blood Product 250 ml Other 180 ml Output Urine Total 650 ml 800 ml # Bowel Movements 1 2 Laboratory Tests 02/20/19 05:45: White Blood Count 16.2H, Red Blood Count 2.97L, Hemoglobin 8.3#L, Hematocrit 26.9L, Mean Corpuscular Volume 90, Mean Corpuscular Hemoglobin 27.9, Mean Corpuscular Hemoglobin Concent 30.8L, Red Cell Distribution Width 17.3H, Platelet Count 329, Mean Platelet Volume 5.5L, Neutrophils (%) (Auto) , Lymphocytes (%) (Auto) , Monocytes (%) (Auto) , Eosinophils (%) (Auto) , Basophils (%) (Auto) , Differential Total Cells Counted 100, Neutrophils % ( Manual) 83H, Lymphocytes % (Manual) 10L, Monocytes % (Manual) 5, Eosinophils % ( Manual) 2, Basophils % (Manual) 0, Band Neutrophils 0, Platelet Estimate Adequate, Platelet Morphology Normal, Hypochromasia 1+, Anisocytosis 1+, Sodium Level 155H, Potassium Level 3.7, Chloride Level 116H, Carbon Dioxide Level 31, Anion Gap 9, Blood Urea Nitrogen 68H, Creatinine 1.1, Estimat Glomerular Filtration Rate , Glucose Level 157H, Calcium Level 8.7, Total Bilirubin 0.6, Aspartate Amino Transf (AST/SGOT) 39H, Alanine Aminotransferase (ALT/SGPT) 18, Alkaline Phosphatase 603H, Total Protein 6.3L, Albumin 1.0L, Globulin 5.3, Albumin/Globulin Ratio 0.2L, Vancomycin Level Trough 21.5H Height (Feet): 6 Height (Inches): 0.00 Weight (Pounds): 130 General Appearance: WD/WN, alert Neck: supple Cardiovascular: normal rate Respiratory/Chest: chest wall non-tender, lungs clear, normal breath sounds, no respiratory distress Abdomen: normal bowel sounds, non tender, soft, no organomegaly Edema: no edema noted Arm (L), no edema noted Arm (R), no edema noted Leg (L), no edema noted Leg (R), no edema noted Pedal (L), no edema noted Pedal (R), no edema noted Generalized Neurologic: unresponsive, aphasia Jarrod Vásquez MD Feb 20, 2019 08:14
[2019-02-20] MEDS: levETIRAcetam 500mg/5ml Liquid GT SCH ×2 (08:52→20:44)
[2019-02-20] MEDS: Aspirin Baby 81mg GT SCH (08:52)
[2019-02-20] MEDS: Metoprolol Tartrate 50mg tab GT SCH ×2 (08:52→20:44)
[2019-02-20] MEDS: Vancomycin 750mg/NS 275ml IVPB SCH ×4 (08:59→20:51)
[2019-02-20] MEDS: Dakin's 0.125% Soln (Quarter Strength) 16oz TOPIC SCH (09:00)
--- NOTE | 2019-02-20 10:00 | NUR ---
NURSE NOTES: Pt stable,no distress presented,oral/tracheal secretions suctioned PRN, pulled up ,turned and repositioned to sides.
[2019-02-20] MEDS ORDERED: Tubing Blood Filter IV ONE (11:08)
[2019-02-20] MEDS ORDERED: NS 275ml ONE (11:08)
[2019-02-20] MEDS ORDERED: 1/2 NS 1000ml IV ONE (11:08)
[2019-02-20] MEDS ORDERED: Tubing IV Secondary IV ONE (11:08)
[2019-02-20] MEDS ORDERED: NS 500ML ONE (11:08)
--- NOTE | 2019-02-20 11:09 | Pulmonology Progress Note ---
Assessment/Plan Assessment/Plan Pulmonary Progress Note Patient is a 73-year-old male chronically ill who is ventilator dependent. [facility]red from [facility] due to severe renal impairment and anemia, worsening leukocytosis, and hyponatremia. Admitted for sepsis. Noted to have Pulmonary infiltrates PAST MEDICAL HISTORY: stroke, seizure disorder, and chronic respiratory failure, decubitus, h/o TB and pneumonia. h/o sepsis PAST SURGICAL HISTORY: Includes a prior history of a trach and a G-tube. ALLERGIES: None. PHYSICAL EXAMINATION: Vital signs noted GENERAL APPEARANCE: The patient is a chronically ill-appearing male, in no apparent distress. unresponsive. NECK: Supple. Trach site is clean, dry, and intact. CARDS: RRR without MRG LUNGS: occasional rhonchi. moderate air entry; no wheeze ABDOMEN: Soft, nontender, and nondistended. GT EXTREMITIES: No clubbing or cyanosis. reduced skin turgor multiple decubitus NEURO: obtunded Labs noted Test 02/18/19 15:00 02/18/19 15:24 02/19/19 03:45 White Blood Count 23.5 K/UL (4.8-10.8) 17.5 K/UL (4.8-10.8) Red Blood Count 2.69 M/UL (4.70-6.10) 2.25 M/UL (4.70-6.10) Hemoglobin 7.5 G/DL (14.2-18.0) 6.2 G/DL (14.2-18.0) Hematocrit 25.0 % (42.0-52.0) 20.8 % (42.0-52.0) Mean Corpuscular Volume 93 FL (80-99) 93 FL (80-99) Mean Corpuscular Hemoglobin 28.0 PG (27.0-31.0) 27.4 PG (27.0-31.0) Mean Corpuscular Hemoglobin Concent 30.1 G/DL (32.0-36.0) 29.6 G/DL (32.0-36.0) Red Cell Distribution Width 18.1 % (11.6-14.8) 18.7 % (11.6-14.8) Platelet Count 310 K/UL (150-450) 294 K/UL (150-450) Mean Platelet Volume 5.1 FL (6.5-10.1) 5.3 FL (6.5-10.1) Neutrophils (%) (Auto) % (45.0-75.0) % (45.0-75.0) Lymphocytes (%) (Auto) % (20.0-45.0) % (20.0-45.0) Monocytes (%) (Auto) % (1.0-10.0) % (1.0-10.0) Eosinophils (%) (Auto) % (0.0-3.0) % (0.0-3.0) Basophils (%) (Auto) % (0.0-2.0) % (0.0-2.0) Differential Total Cells Counted 100 100 Neutrophils % (Manual) 93 % (45-75) 88 % (45-75) Lymphocytes % (Manual) 1 % (20-45) 4 % (20-45) Monocytes % (Manual) 3 % (1-10) 5 % (1-10) Eosinophils % (Manual) 1 % (0-3) 2 % (0-3) Basophils % (Manual) 0 % (0-2) 1 % (0-2) Band Neutrophils 2 % (0-8) 0 % (0-8) Toxic Granulation 1+ Platelet Estimate Adequate Adequate Platelet Morphology Normal Normal Polychromasia 1+ Hypochromasia 2+ 4+ Anisocytosis 2+ 2+ Prothrombin Time 11.4 SEC (9.30-11.50) Prothromb Time International Ratio 1.1 (0.9-1.1) Activated Partial Thromboplast Time 33 SEC (23-33) Sodium Level 155 MMOL/L (136-145) 154 MMOL/L (136-145) Potassium Level 5.1 MMOL/L (3.5-5.1) 3.9 MMOL/L (3.5-5.1) Chloride Level 114 MMOL/L (98-107) 113 MMOL/L (98-107) Carbon Dioxide Level 39 MMOL/L (21-32) 35 MMOL/L (21-32) Anion Gap 1 mmol/L (5-15) 6 mmol/L (5-15) Blood Urea Nitrogen 100 mg/dL (7-18) 87 mg/dL (7-18) Creatinine 1.3 MG/DL (0.55-1.30) 1.1 MG/DL (0.55-1.30) Estimat Glomerular Filtration Rate mL/min (>60) mL/min (>60) Glucose Level 120 MG/DL (74-106) 122 MG/DL (74-106) Lactic Acid Level 1.20 mmol/L (0.4-2.0) Calcium Level 10.1 MG/DL (8.5-10.1) 8.9 MG/DL (8.5-10.1) Phosphorus Level 4.9 MG/DL (2.5-4.9) Magnesium Level 3.6 MG/DL (1.8-2.4) Total Bilirubin 0.6 MG/DL (0.2-1.0) 0.5 MG/DL (0.2-1.0) Aspartate Amino Transf (AST/SGOT) 54 U/L (15-37) 42 U/L (15-37) Alanine Aminotransferase (ALT/SGPT) 26 U/L (12-78) 18 U/L (12-78) Alkaline Phosphatase 772 U/L (46-116) 591 U/L (46-116) Total Creatine Kinase 54 U/L (26-308) Creatine Kinase MB 0.8 NG/ML (0.0-3.6) Creatine Kinase MB Relative Index 1.4 Troponin I 0.000 ng/mL (0.000-0.056) Pro-B-Type Natriuretic Peptide 1490 pg/mL (0-125) Total Protein 8.7 G/DL (6.4-8.2) 7.3 G/DL (6.4-8.2) Albumin 1.4 G/DL (3.4-5.0) 1.0 G/DL (3.4-5.0) Globulin 7.3 g/dL 6.3 g/dL Albumin/Globulin Ratio 0.2 (1.0-2.7) 0.2 (1.0-2.7) Lipase 237 U/L (73-393) Urine Color Yellow Urine Appearance Cloudy Urine pH 6.5 (4.5-8.0) Urine Specific [place] 1.010 (1.005-1.035) Urine Protein 2+ (NEGATIVE) Urine Glucose (UA) Negative (NEGATIVE) Urine Ketones Negative (NEGATIVE) Urine Blood 4+ (NEGATIVE) Urine Nitrite Negative (NEGATIVE) Urine Bilirubin Negative (NEGATIVE) Urine Urobilinogen 8 MG/DL (0.0-1.0) Urine Leukocyte Esterase 3+ (NEGATIVE) Urine RBC 2-4 /HPF (0 - 0) Urine WBC 30-40 /HPF (0 - 0) Urine Squamous Epithelial Cells Few /LPF (NONE/OCC) Urine Bacteria Many /HPF (NONE) ASSESSMENT: toxic metabolic encephalopathy, history of stroke, chronic respiratory failure, hypernatremia, acute on chronic renal failure, chronic encephalopathy, seizure disorder, pulmonary tuberculosis, and anemia possible sepsis, leukocytosis, possible gib, leukocytosis, possible sepsis PLAN care noted transfuse IV antibiotics, empiric respiratory care Ventilatory support- no wean and maintain AC SNF meds supportive care as is suction oxygen therapy noted prognosis poor monitor for infection impression, plan, and exam edited and reviewed in detail care discussed with RN Subjective ROS Limited/Unobtainable: No Allergies: Coded Allergies: No Known Allergies (Unverified , 01/27/17) Objective Last 24 Hour Vital Signs Date Time Temp Pulse Resp B/P (MAP) Pulse Ox O2 Delivery O2 Flow Rate FiO2 02/20/19 09:20 78 23 40 02/20/19 08:53 79 117/59 02/20/19 08:52 79 117/59 02/20/19 08:03 98.2 79 26 117/59 (78) 100 02/20/19 08:00 40 02/20/19 08:00 Mechanical Ventilator 02/20/19 08:00 81 02/20/19 07:20 82 19 40 02/20/19 05:32 73 25 40 02/20/19 04:00 98.2 80 20 111/51 (71) 100 02/20/19 04:00 Mechanical Ventilator 02/20/19 04:00 40 02/20/19 03:26 71 02/20/19 02:49 76 26 40 02/20/19 01:21 72 28 40 02/20/19 00:00 98.6 74 26 102/48 (66) 100 02/20/19 00:00 Mechanical Ventilator 02/19/19 23:33 68 02/19/19 22:55 77 26 40 02/19/19 21:15 75 21 40 02/19/19 20:30 77 118/80 02/19/19 20:00 97.2 78 21 112/50 (70) 100 02/19/19 20:00 40 02/19/19 20:00 Mechanical Ventilator 02/19/19 19:16 78 22 40 02/19/19 19:12 78 02/19/19 17:28 78 24 40 02/19/19 16:22 99.1 02/19/19 16:00 73 02/19/19 16:00 40 02/19/19 16:00 100.9 75 20 118/60 (79) 100 02/19/19 16:00 Mechanical Ventilator 02/19/19 15:00 72 18 40 02/19/19 13:25 72 18 40 02/19/19 12:07 Mechanical Ventilator 02/19/19 12:00 40 02/19/19 11:59 99.0 72 22 101/48 (65) 99 02/19/19 11:51 73 Intake and Output 02/19/19 02/20/19 19:00 07:00 Intake Total 2140.0 ml 2395.13 ml Output Total 650 ml 800 ml Balance 1490.0 ml 1595.13 ml Intake Free Water 200 ml 400 ml IV Total 1320.0 ml 1265.13 ml Tube Feeding 440 ml 480 ml Blood Product 250 ml Other 180 ml Output Urine Total 650 ml 800 ml # Bowel Movements 1 2 Microbiology Date/Time Source Procedure Growth Status 02/18/19 15:10 Blood Blood Culture - Preliminary NO GROWTH AFTER 24 HOURS Resulted 02/18/19 15:00 Blood Blood Culture - Preliminary NO GROWTH AFTER 24 HOURS Resulted 02/18/19 15:24 Urine,Clean Catch Urine Culture - Preliminary Gram Negative Bacillus 1 Resulted 02/18/19 17:00 Back Gram Stain - Final Resulted 02/18/19 17:00 Wound Culture - Preliminary Gram Negative [place] Staphylococcus Aureus Diphtheroids Resulted Laboratory Tests 02/20/19 05:45: White Blood Count 16.2H, Red Blood Count 2.97L, Hemoglobin 8.3#L, Hematocrit 26.9L, Mean Corpuscular Volume 90, Mean Corpuscular Hemoglobin 27.9, Mean Corpuscular Hemoglobin Concent 30.8L, Red Cell Distribution Width 17.3H, Platelet Count 329, Mean Platelet Volume 5.5L, Neutrophils (%) (Auto) , Lymphocytes (%) (Auto) , Monocytes (%) (Auto) , Eosinophils (%) (Auto) , Basophils (%) (Auto) , Differential Total Cells Counted 100, Neutrophils % ( Manual) 83H, Lymphocytes % (Manual) 10L, Monocytes % (Manual) 5, Eosinophils % ( Manual) 2, Basophils % (Manual) 0, Band Neutrophils 0, Platelet Estimate Adequate, Platelet Morphology Normal, Hypochromasia 1+, Anisocytosis 1+, Sodium Level 155H, Potassium Level 3.7, Chloride Level 116H, Carbon Dioxide Level 31, Anion Gap 9, Blood Urea Nitrogen 68H, Creatinine 1.1, Estimat Glomerular Filtration Rate , Glucose Level 157H, Calcium Level 8.7, Total Bilirubin 0.6, Aspartate Amino Transf (AST/SGOT) 39H, Alanine Aminotransferase (ALT/SGPT) 18, Alkaline Phosphatase 603H, Total Protein 6.3L, Albumin 1.0L, Globulin 5.3, Albumin/Globulin Ratio 0.2L, Vancomycin Level Trough 21.5H Current Medications Medications (Trade) Dose Ordered Sig/Iram Route PRN Reason Start Time Stop Time Status Last Admin Dose Admin Acetaminophen (Tylenol) 650 mg Q4H PRN ORAL Mild Pain/Temp > 100.5 02/18/19 19:45 03/20/19 19:44 02/19/19 15:52 Acetaminophen/ Hydrocodone Bitart ([place] 5/325) 1 tab Q8H PRN GT For Pain 02/18/19 19:45 02/25/19 19:44 Albuterol/ Ipratropium (Albuterol/ Ipratropium) 3 ml Q4H PRN HHN Shortness of Breath 02/18/19 19:45 02/23/19 19:44 Amlodipine Besylate (Norvasc) 10 mg DAILY GT 02/19/19 09:00 03/21/19 08:59 02/20/19 08:53 Artificial Tears (Akwa-Tears) 2 drop Q2H PRN BOTH EYES DRY EYES 02/18/19 19:45 03/20/19 19:44 Aspirin (ASA) 81 mg DAILY GT 02/19/19 09:00 03/21/19 08:59 02/20/19 08:52 Atorvastatin Calcium (Lipitor) 10 mg BEDTIME GT 02/18/19 21:00 03/20/19 20:59 02/19/19 20:31 Doxazosin Mesylate (Cardura) 1 mg QHS GT 02/18/19 21:00 03/20/19 20:59 02/19/19 20:30 Lansoprazole (Prevacid) 30 mg Q12HR GT 02/18/19 21:00 03/20/19 20:59 02/20/19 08:52 Levetiracetam (Keppra) 750 mg Q12HR GT 02/18/19 21:00 03/20/19 20:59 02/20/19 08:52 Metoprolol Tartrate (Lopressor) 50 mg EVERY 12 HOURS GT 02/18/19 21:00 03/20/19 20:59 02/20/19 08:52 Multivitamins (Multivitamins) 1 tab DAILY GT 02/19/19 09:00 03/21/19 08:59 02/20/19 08:52 Piperacillin Sod/ Tazobactam Sod 3.375 gm/Sodium Chloride 110 ml @ 27.5 mls/hr EVERY 8 HOURS IVPB 02/18/19 22:00 02/23/19 21:59 02/20/19 05:04 Sodium Hypochlorite (Dakin's Quarter Strength) 1 applic DAILY TOPIC 02/19/19 10:00 03/21/19 09:59 02/20/19 09:00 Sodium Chloride 1,000 ml @ 100 mls/hr Q10H IV 02/18/19 19:45 03/20/19 19:44 02/20/19 01:48 Vancomycin HCl (Vanco rx to dose) 1 ea DAILY PRN MISC Per rx protocol 02/18/19 19:45 03/20/19 19:44 Vancomycin HCl 750 mg/Sodium Chloride 275 ml @ 183.333 mls/hr Q12H IVPB 02/20/19 09:00 02/25/19 08:59 02/20/19 08:59 Jones Rasmussen MD Feb 20, 2019 11:09
[2019-02-20 12:00] VITALS: BP 107/52
--- NOTE | 2019-02-20 13:00 | NUR ---
NURSE NOTES: Oral/tracheal secretions suctioned PRN,Turned and repositioned.
--- NOTE | 2019-02-20 13:02 | NUR ---
CASE MANAGEMENT:REVIEW 02/20/19 SI: SEPSIS. UTI. DECUB ULCER TRACH/VENT/G-TUBE 98.2 79 26 117/59 100% ON VENT SUPPORT W/40% FIO2 WBC+16.2 H/H-8.3/26.9 BUN+68 IS: IV VANCOMYCIN Q12 IV ZOSYN Q8HRS IVF@100/HR NORVASC GT QD ASA GT QD KEPPRA GT Q12 LOPRESSOR GT Q12 : STEP DOWN UNIT DCP: FROM [facility]
--- NOTE | 2019-02-20 14:41 | Surgery Progress Note ---
Surgery Progress Note Subjective Additional Comments no acute events labs noted micro noted exam unchanged. ill appearing Objective Last 24 Hour Vital Signs Date Time Temp Pulse Resp B/P (MAP) Pulse Ox O2 Delivery O2 Flow Rate FiO2 02/20/19 13:03 67 21 40 02/20/19 12:00 98.1 66 24 107/52 (70) 100 02/20/19 12:00 Mechanical Ventilator 02/20/19 12:00 66 02/20/19 12:00 40 02/20/19 10:45 68 21 40 02/20/19 09:20 78 23 40 02/20/19 08:53 79 117/59 02/20/19 08:52 79 117/59 02/20/19 08:03 98.2 79 26 117/59 (78) 100 02/20/19 08:00 40 02/20/19 08:00 Mechanical Ventilator 02/20/19 08:00 81 02/20/19 07:20 82 19 40 02/20/19 05:32 73 25 40 02/20/19 04:00 98.2 80 20 111/51 (71) 100 02/20/19 04:00 Mechanical Ventilator 02/20/19 04:00 40 02/20/19 03:26 71 02/20/19 02:49 76 26 40 02/20/19 01:21 72 28 40 02/20/19 00:00 98.6 74 26 102/48 (66) 100 02/20/19 00:00 Mechanical Ventilator 02/19/19 23:33 68 02/19/19 22:55 77 26 40 02/19/19 21:15 75 21 40 02/19/19 20:30 77 118/80 02/19/19 20:00 97.2 78 21 112/50 (70) 100 02/19/19 20:00 40 02/19/19 20:00 Mechanical Ventilator 02/19/19 19:16 78 22 40 02/19/19 19:12 78 02/19/19 17:28 78 24 40 02/19/19 16:22 99.1 02/19/19 16:00 73 02/19/19 16:00 40 02/19/19 16:00 100.9 75 20 118/60 (79) 100 02/19/19 16:00 Mechanical Ventilator 02/19/19 15:00 72 18 40 I&O Intake and Output 02/19/19 02/20/19 19:00 07:00 Intake Total 2140.0 ml 2395.13 ml Output Total 650 ml 800 ml Balance 1490.0 ml 1595.13 ml Intake Free Water 200 ml 400 ml IV Total 1320.0 ml 1265.13 ml Tube Feeding 440 ml 480 ml Blood Product 250 ml Other 180 ml Output Urine Total 650 ml 800 ml # Bowel Movements 1 2 Dressing: other Wound: other Drains: other Cardiovascular: RSR Respiratory: decreased breath sounds Abdomen: soft, present bowel sounds, non-distended Extremities: no cyanosis, other Laboratory Tests Test 02/20/19 05:45 White Blood Count 16.2 K/UL (4.8-10.8) H Red Blood Count 2.97 M/UL (4.70-6.10) L Hemoglobin 8.3 G/DL (14.2-18.0) #L Hematocrit 26.9 % (42.0-52.0) L Mean Corpuscular Volume 90 FL (80-99) Mean Corpuscular Hemoglobin 27.9 PG (27.0-31.0) Mean Corpuscular Hemoglobin Concent 30.8 G/DL (32.0-36.0) L Red Cell Distribution Width 17.3 % (11.6-14.8) H Platelet Count 329 K/UL (150-450) Mean Platelet Volume 5.5 FL (6.5-10.1) L Neutrophils (%) (Auto) % (45.0-75.0) Lymphocytes (%) (Auto) % (20.0-45.0) Monocytes (%) (Auto) % (1.0-10.0) Eosinophils (%) (Auto) % (0.0-3.0) Basophils (%) (Auto) % (0.0-2.0) Differential Total Cells Counted 100 Neutrophils % (Manual) 83 % (45-75) H Lymphocytes % (Manual) 10 % (20-45) L Monocytes % (Manual) 5 % (1-10) Eosinophils % (Manual) 2 % (0-3) Basophils % (Manual) 0 % (0-2) Band Neutrophils 0 % (0-8) Platelet Estimate Adequate Platelet Morphology Normal Hypochromasia 1+ Anisocytosis 1+ Sodium Level 155 MMOL/L (136-145) H Potassium Level 3.7 MMOL/L (3.5-5.1) Chloride Level 116 MMOL/L (98-107) H Carbon Dioxide Level 31 MMOL/L (21-32) Anion Gap 9 mmol/L (5-15) Blood Urea Nitrogen 68 mg/dL (7-18) H Creatinine 1.1 MG/DL (0.55-1.30) Estimat Glomerular Filtration Rate mL/min (>60) Glucose Level 157 MG/DL (74-106) H Calcium Level 8.7 MG/DL (8.5-10.1) Total Bilirubin 0.6 MG/DL (0.2-1.0) Aspartate Amino Transf (AST/SGOT) 39 U/L (15-37) H Alanine Aminotransferase (ALT/SGPT) 18 U/L (12-78) Alkaline Phosphatase 603 U/L (46-116) H Total Protein 6.3 G/DL (6.4-8.2) L Albumin 1.0 G/DL (3.4-5.0) L Globulin 5.3 g/dL Albumin/Globulin Ratio 0.2 (1.0-2.7) L Vancomycin Level Trough 21.5 ug/mL (5.0-12.0) H Plan Problems: (1) Leukocytosis Assessment & Plan: Sepsis with leukocytosis. Labs trending down. On IV antibiotics. Continue current treatment plan (2) Decubitus ulcer Assessment & Plan: Pt presented on admission with multiple pressure injuries. Resolving pressure injury L occipital. Dry pink epithelial noted. Skin assessed under trach collar and no areas of concerns noted . R and L ears dry . Full thickness pressure injury with undermining thoracic spine . Base of wound 75% granular with 25% fibrinous slough. Mild odor noted.(L)8.5cm x (W)6.5cmx(D) 1cm, undermining clockwise 6-1 by 3cm @12o'clock. Full thickness pressure injury L trochanter. 100% mixed necrosis/slough at base of wound and undermined borders.Non-blanchable erythema with induration noted periwound. Mild odor noted .(L)3.5cm x (W)4.5cm. Resolving DTPI L ischium .Centrally wound is red and fluctuant .Bone is palpable. Black with red tinged indurated borders noted. (L) (L)4.4cm x (W) 3.2cm. Ful thickness pressure injury R Iliac with 10% velazquez slough centrally.90% granular.Edges adherent and flat. (L)3cm x (W)3.2cm x(D)0.2cm. No odor or exudate noted.Darker skin tone without fluctuance noted periwound. Full thickness pressure injury with undermining R trochanter. Base of wound 60^ beefy red with 40% velazquez slough.erythejma noted along borders. Small amt seropurulent exudate that is mildly odorous.(L)5.5cm x (W)6.6cm x (D)1.5cm, undermining clockwise 12-12 by 4.5cm @3o'clock. Full thickness pressure injury R ischium (L)4.2cm x (W)5.5cm x(D)1.6cm, undermining 12-12 by 1.8cm @12o'clock .Base of wound 60% granular ,40% velazquez slough undermined borders.Wound has mild odor with small amt seropurulent exudate.darker skin tone that is indurated periwound. Resolving pressure injury sacrum . Base of wound dry with pink epithelial.with scattered shearing within base of wound. L heel boggy with non-blanchable erythema. DTPI R heel and Lateral aspect .Base of wound is maroon with fluctuance. (L) 4.5cm x (W)7.3cm. Tx.Plan. Cleanse wounds Thoracic and lumbar spine with Dakin's 0.125% segun. Pack with Dakin's moist gauze. Apply Moisture Barrier Paste periwound. Cover each wound with Optifoam drsg.Twice Daily and prn. Cleanse wound L trochanter and L ischium with Dakin's 0.125% segun. Pack with Dakin's moist Gauze.Apply Moisture Barrier paste periwound. Cover with Optifoam drsg. Twice daily and prn. Cleanse wounds R iliac ,R trochanter,R ischium with Dakin's 0.125% segun. Pack with Dakin's moist gauze. Apply Moisture Barrier Paste periwound. Cover with Optifoam drsg Twice daily and prn. Apply Moisture Barrier paste to sacrum. Cover with Optifoam drsg. Change every 3 days and prn. Apply Cavilon Skin Barrier to Both heels. Cover each heel with Optifoam drsg. Change every 7 days and prn. Air Fluidized Mattress. Reposition at least every 2hours or as tolerated. Off-load heels with pillow. (3) Sepsis Assessment & Plan: Continue with IV antibiotics as per infectious disease. Awaiting blood cultures. 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
[2019-02-20 16:00] VITALS: BP 107/53
--- NOTE | 2019-02-20 17:00 | NUR ---
NURSE NOTES: Pt with BM to dark soft stools in moderate amount,bed bath given,dressing changes done to sacral wounds and back and bilat hips turned to sides .
--- NOTE | 2019-02-20 18:00 | NUR ---
NURSE NOTES: Pt remains stable,no fever presented during the shift,BP WNL,family members and at bedside.
--- NOTE | 2019-02-20 19:25 | NUR ---
HAND-OFF: Report given to Natanael Luong RN.
--- NOTE | 2019-02-20 19:26 | NUR ---
NURSE NOTES: Received patient from Arielle Mccoy RN. Patient is obtunded, receiving oxygen via trach to vent: Portex 7, AC 12, TV 500, FIO2 40%, PEEP 5. G-tube is patent and receiving Osdmolite 1.5 at 40cc/hr. Manzo catheter is patent and draining. IV site is Right upper arm 20g receiving 1/2 NS at 100c/hr. Bed is locked, placed in lowest position, side rails up x3, bed alarm on. Will continue to monitor.
[2019-02-20 20:00] VITALS: BP 121/63
[2019-02-20] MEDS: Doxazosin 1mg Tab GT SCH (20:44)
[2019-02-21] VITALS: BP 116/58
[2019-02-21 04:00] VITALS: BP 125/61
[2019-02-21] MEDS: Piperacillin/Tazobactam 3.375 GM in NS 110 ML IVPB SCH ×3 (05:32→21:54)
--- NOTE | 2019-02-21 07:18 | NUR ---
HAND-OFF: Report given to Fdeerico REEVES. Patient in stable condition.
--- NOTE | 2019-02-21 07:21 | NUR ---
NURSE NOTES: Received report from LALA Flores. Patient is resting in bed, in stable condition. No s/sx of SOB, breathing is even and unlabored, vent settings are as ordered. Observed no presence pain or discomfort at this time. Bed is in lowest position, brakes engaged. Call light is kept within easy reach. Will continue to monitor patient.
--- NOTE | 2019-02-21 07:49 | NUR ---
RESPIRATORY NOTE: Received pt. on 840 vent. Vent settings are: A/C rate of 12, Vt 500, FI02 40%, PEEP +5. No respiratory distress noted, pt. sP02 @ 100%. Ambu bag @ BS. Vent plugged on red outlet. Will continue to monitor pt.
[2019-02-21 08:00] VITALS: BP 125/53
[2019-02-21] MEDS: Metoprolol Tartrate 50mg tab GT SCH ×2 (08:12→20:43)
[2019-02-21] MEDS: Aspirin Baby 81mg GT SCH (08:13)
[2019-02-21] MEDS: Dakin's 0.125% Soln (Quarter Strength) 16oz TOPIC SCH (08:13)
[2019-02-21] MEDS: levETIRAcetam 500mg/5ml Liquid GT SCH ×2 (08:14→20:43)
[2019-02-21] MEDS: Vancomycin 750mg/NS 275ml IVPB SCH ×2 (08:17)
[2019-02-21] MEDS ORDERED: 1/2 NS 1000ml IV ONE (10:54)
[2019-02-21] MEDS ORDERED: NS 275ml ONE (10:54)
--- NOTE | 2019-02-21 11:49 | General Progress Note ---
Assessment/Plan Problem List: (1) Decubitus ulcer ICD Codes: L89.90 - Pressure ulcer of unspecified site, unspecified stage SNOMED: 943683436 (2) Anemia ICD Codes: D64.9 - Anemia, unspecified SNOMED: 763264164 (3) Sepsis ICD Codes: A41.9 - Sepsis, unspecified organism SNOMED: 12559363 (4) HTN (hypertension) ICD Codes: I10 - Essential (primary) hypertension SNOMED: 59843079 (5) Encephalopathy acute ICD Codes: G93.40 - Encephalopathy, unspecified SNOMED: 34681963, 251230352 (6) BPH (benign prostatic hyperplasia) ICD Codes: N40.0 - Benign prostatic hyperplasia without lower urinary tract symptoms SNOMED: 690344762, 199259089 (7) UTI (urinary tract infection), bacterial ICD Codes: N39.0 - Urinary tract infection, site not specified; A49.9 - Bacterial infection, unspecified SNOMED: 589856456 Status: stable, progressing Assessment/Plan: iv abx follow up cultures vent support resp rx suctioning as needed tube feeds wound care monitor h/h transfuse as needed sz rx poor prognosis Subjective ROS Limited/Unobtainable: Yes Constitutional: Reports: malaise, weakness HEENT: Reports: no symptoms Cardiovascular: Reports: no symptoms Respiratory: Reports: shortness of breath Gastrointestinal/Abdominal: Reports: difficulty swallowing Genitourinary: Reports: no symptoms Neurologic/Psychiatric: Reports: pre-existing deficit, seizure Endocrine: Reports: no symptoms Allergies: Coded Allergies: No Known Allergies (Unverified , 01/27/17) All Systems: reviewed and negative except above Subjective no events. stable on the vent. no bleeding noted. on iv abx. culture noted. labs pending Objective Last 24 Hour Vital Signs Date Time Temp Pulse Resp B/P (MAP) Pulse Ox O2 Delivery O2 Flow Rate FiO2 02/21/19 11:20 68 24 40 02/21/19 09:24 63 24 40 02/21/19 08:13 67 125/53 02/21/19 08:12 67 125/53 02/21/19 08:00 97.9 67 20 125/53 (77) 100 02/21/19 08:00 67 02/21/19 08:00 40 02/21/19 08:00 Mechanical Ventilator 02/21/19 07:51 67 21 40 02/21/19 04:36 72 26 40 40 02/21/19 04:00 Mechanical Ventilator 02/21/19 04:00 98.8 78 28 125/61 (82) 100 02/21/19 04:00 40 02/21/19 03:41 67 02/21/19 03:19 79 27 40 40 02/21/19 00:47 78 28 40 40 02/21/19 00:00 98.9 60 28 116/58 (77) 100 02/21/19 00:00 Mechanical Ventilator 02/20/19 23:51 66 02/20/19 23:29 68 24 40 40 02/20/19 20:44 70 125/58 02/20/19 20:33 62 21 40 40 02/20/19 20:00 98.8 68 23 121/63 (82) 100 02/20/19 20:00 40 02/20/19 20:00 Mechanical Ventilator 02/20/19 19:29 60 20 40 40 02/20/19 19:29 82 02/20/19 16:40 61 22 40 02/20/19 16:00 98.1 66 22 107/53 (71) 99 02/20/19 16:00 67 02/20/19 16:00 Mechanical Ventilator 02/20/19 16:00 40 02/20/19 14:45 66 24 40 02/20/19 13:03 67 21 40 02/20/19 12:00 98.1 66 24 107/52 (70) 100 02/20/19 12:00 Mechanical Ventilator 02/20/19 12:00 66 02/20/19 12:00 40 Intake and Output 02/20/19 02/21/19 19:00 07:00 Intake Total 1876.6 ml 1635.330 ml Output Total 300 ml 900 ml Balance 1576.6 ml 735.330 ml Intake Free Water 450 ml IV Total 866.6 ml 1235.330 ml Tube Feeding 440 ml 400 ml Other 120 ml Output Urine Total 300 ml 900 ml # Bowel Movements 2 1 Height (Feet): 6 Height (Inches): 0.00 Weight (Pounds): 130 General Appearance: WD/WN, confused, cachetic Neck: non-tender, supple Cardiovascular: normal peripheral pulses, normal rate, regular rhythm Respiratory/Chest: chest wall non-tender, lungs clear, normal breath sounds Edema: no edema noted Arm (L), no edema noted Arm (R), no edema noted Leg (L), no edema noted Leg (R), no edema noted Pedal (L), no edema noted Pedal (R), no edema noted Generalized Jarrod Vásquez MD Feb 21, 2019 11:49
[2019-02-21 12:00] VITALS: BP 107/58
[2019-02-21 13:02] LABS: BASOPHILS % (AUTO) 0.3 % (0.0-2.0); EOSINOPHILS % (AUTO) 3.6 % (0.0-3.0); HEMOGLOBIN 8.9 G/DL (14.2-18.0); LYMPHOCYTES % (AUTO) 11.6 % (20.0-45.0); MEAN CORPUSCULAR VOLUME 91 FL (80-99); MONOCYTES % (AUTO) 5.3 % (1.0-10.0); NEUTROPHILS % (AUTO) 79.2 % (45.0-75.0); PLATELET COUNT 333 K/UL (150-450); RED BLOOD COUNT 3.19 M/UL (4.70-6.10); WHITE BLOOD COUNT 11.9 K/UL (4.8-10.8)
[2019-02-21 13:20] LABS: ALANINE AMINOTRANSFERASE 13 U/L (12-78); ALBUMIN/GLOBULIN RATIO 0.2 (1.0-2.7); ALKALINE PHOSPHATASE 617 U/L (46-116); ANION GAP 5 mmol/L (5-15); ASPARTATE AMINO TRANSFERASE 37 U/L (15-37); BILIRUBIN,TOTAL 0.6 MG/DL (0.2-1.0); BLOOD UREA NITROGEN 43 mg/dL (7-18); CALCIUM 9.3 MG/DL (8.5-10.1); CARBON DIOXIDE 33 MMOL/L (21-32); CHLORIDE 115 MMOL/L (98-107); CREATININE 0.8 MG/DL (0.55-1.30); POTASSIUM 3.6 MMOL/L (3.5-5.1); SODIUM 153 MMOL/L (136-145)
--- NOTE | 2019-02-21 14:50 | Surgery Progress Note ---
Surgery Progress Note Subjective Symptoms: other Objective Last 24 Hour Vital Signs Date Time Temp Pulse Resp B/P (MAP) Pulse Ox O2 Delivery O2 Flow Rate FiO2 02/21/19 13:32 80 21 40 02/21/19 12:00 67 02/21/19 12:00 40 02/21/19 12:00 Mechanical Ventilator 02/21/19 12:00 98.2 66 20 107/58 (74) 99 02/21/19 11:20 68 24 40 02/21/19 09:24 63 24 40 02/21/19 08:13 67 125/53 02/21/19 08:12 67 125/53 02/21/19 08:00 97.9 67 20 125/53 (77) 100 02/21/19 08:00 67 02/21/19 08:00 40 02/21/19 08:00 Mechanical Ventilator 02/21/19 07:51 67 21 40 02/21/19 04:36 72 26 40 40 02/21/19 04:00 Mechanical Ventilator 02/21/19 04:00 98.8 78 28 125/61 (82) 100 02/21/19 04:00 40 02/21/19 03:41 67 02/21/19 03:19 79 27 40 40 02/21/19 00:47 78 28 40 40 02/21/19 00:00 98.9 60 28 116/58 (77) 100 02/21/19 00:00 Mechanical Ventilator 02/20/19 23:51 66 02/20/19 23:29 68 24 40 40 02/20/19 20:44 70 125/58 02/20/19 20:33 62 21 40 40 02/20/19 20:00 98.8 68 23 121/63 (82) 100 02/20/19 20:00 40 02/20/19 20:00 Mechanical Ventilator 02/20/19 19:29 60 20 40 40 02/20/19 19:29 82 02/20/19 16:40 61 22 40 02/20/19 16:00 98.1 66 22 107/53 (71) 99 02/20/19 16:00 67 02/20/19 16:00 Mechanical Ventilator 02/20/19 16:00 40 I&O Intake and Output 02/20/19 02/21/19 19:00 07:00 Intake Total 1876.6 ml 1635.330 ml Output Total 300 ml 900 ml Balance 1576.6 ml 735.330 ml Intake Free Water 450 ml IV Total 866.6 ml 1235.330 ml Tube Feeding 440 ml 400 ml Other 120 ml Output Urine Total 300 ml 900 ml # Bowel Movements 2 1 Dressing: saturated Wound: other Drains: other Cardiovascular: RSR Respiratory: decreased breath sounds Abdomen: soft, present bowel sounds Extremities: no cyanosis Laboratory Tests Test 02/21/19 12:40 White Blood Count 11.9 K/UL (4.8-10.8) H Red Blood Count 3.19 M/UL (4.70-6.10) L Hemoglobin 8.9 G/DL (14.2-18.0) L Hematocrit 29.0 % (42.0-52.0) L Mean Corpuscular Volume 91 FL (80-99) Mean Corpuscular Hemoglobin 27.8 PG (27.0-31.0) Mean Corpuscular Hemoglobin Concent 30.6 G/DL (32.0-36.0) L Red Cell Distribution Width 17.0 % (11.6-14.8) H Platelet Count 333 K/UL (150-450) Mean Platelet Volume 5.3 FL (6.5-10.1) L Neutrophils (%) (Auto) 79.2 % (45.0-75.0) H Lymphocytes (%) (Auto) 11.6 % (20.0-45.0) L Monocytes (%) (Auto) 5.3 % (1.0-10.0) Eosinophils (%) (Auto) 3.6 % (0.0-3.0) H Basophils (%) (Auto) 0.3 % (0.0-2.0) Sodium Level 153 MMOL/L (136-145) H Potassium Level 3.6 MMOL/L (3.5-5.1) Chloride Level 115 MMOL/L (98-107) H Carbon Dioxide Level 33 MMOL/L (21-32) H Anion Gap 5 mmol/L (5-15) Blood Urea Nitrogen 43 mg/dL (7-18) H Creatinine 0.8 MG/DL (0.55-1.30) Estimat Glomerular Filtration Rate mL/min (>60) Glucose Level 86 MG/DL (74-106) Calcium Level 9.3 MG/DL (8.5-10.1) Total Bilirubin 0.6 MG/DL (0.2-1.0) Aspartate Amino Transf (AST/SGOT) 37 U/L (15-37) Alanine Aminotransferase (ALT/SGPT) 13 U/L (12-78) Alkaline Phosphatase 617 U/L (46-116) H Total Protein 7.1 G/DL (6.4-8.2) Albumin 1.0 G/DL (3.4-5.0) L Globulin 6.1 g/dL Albumin/Globulin Ratio 0.2 (1.0-2.7) L Plan Problems: (1) Leukocytosis Assessment & Plan: Sepsis with leukocytosis. Labs trending down. On IV antibiotics. Continue current treatment plan (2) Decubitus ulcer Assessment & Plan: Pt presented on admission with multiple pressure injuries. Resolving pressure injury L occipital. Dry pink epithelial noted. Skin assessed under trach collar and no areas of concerns noted . R and L ears dry . Full thickness pressure injury with undermining thoracic spine . Base of wound 75% granular with 25% fibrinous slough. Mild odor noted.(L)8.5cm x (W)6.5cmx(D) 1cm, undermining clockwise 6-1 by 3cm @12o'clock. Full thickness pressure injury L trochanter. 100% mixed necrosis/slough at base of wound and undermined borders.Non-blanchable erythema with induration noted periwound. Mild odor noted .(L)3.5cm x (W)4.5cm. Resolving DTPI L ischium .Centrally wound is red and fluctuant .Bone is palpable. Black with red tinged indurated borders noted. (L) (L)4.4cm x (W) 3.2cm. Ful thickness pressure injury R Iliac with 10% velazquez slough centrally.90% granular.Edges adherent and flat. (L)3cm x (W)3.2cm x(D)0.2cm. No odor or exudate noted.Darker skin tone without fluctuance noted periwound. Full thickness pressure injury with undermining R trochanter. Base of wound 60^ beefy red with 40% velazquez slough.erythejma noted along borders. Small amt seropurulent exudate that is mildly odorous.(L)5.5cm x (W)6.6cm x (D)1.5cm, undermining clockwise 12-12 by 4.5cm @3o'clock. Full thickness pressure injury R ischium (L)4.2cm x (W)5.5cm x(D)1.6cm, undermining 12-12 by 1.8cm @12o'clock .Base of wound 60% granular ,40% velazquez slough undermined borders.Wound has mild odor with small amt seropurulent exudate.darker skin tone that is indurated periwound. Resolving pressure injury sacrum . Base of wound dry with pink epithelial.with scattered shearing within base of wound. L heel boggy with non-blanchable erythema. DTPI R heel and Lateral aspect .Base of wound is maroon with fluctuance. (L) 4.5cm x (W)7.3cm. Tx.Plan. Cleanse wounds Thoracic and lumbar spine with Dakin's 0.125% segun. Pack with Dakin's moist gauze. Apply Moisture Barrier Paste periwound. Cover each wound with Optifoam drsg.Twice Daily and prn. Cleanse wound L trochanter and L ischium with Dakin's 0.125% segun. Pack with Dakin's moist Gauze.Apply Moisture Barrier paste periwound. Cover with Optifoam drsg. Twice daily and prn. Cleanse wounds R iliac ,R trochanter,R ischium with Dakin's 0.125% segun. Pack with Dakin's moist gauze. Apply Moisture Barrier Paste periwound. Cover with Optifoam drsg Twice daily and prn. Apply Moisture Barrier paste to sacrum. Cover with Optifoam drsg. Change every 3 days and prn. Apply Cavilon Skin Barrier to Both heels. Cover each heel with Optifoam drsg. Change every 7 days and prn. Air Fluidized Mattress. Reposition at least every 2hours or as tolerated. Off-load heels with pillow. (3) Sepsis Assessment & Plan: Continue with IV antibiotics as per infectious disease. Awaiting blood cultures. 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
[2019-02-21 16:00] VITALS: BP 127/54
--- NOTE | 2019-02-21 16:20 | Pulmonology Progress Note ---
Assessment/Plan Assessment/Plan Pulmonary Progress Note Patient is a 73-year-old male chronically ill who is ventilator dependent. [facility]red from [facility] due to severe renal impairment and anemia, worsening leukocytosis, and hypernatremia. Admitted for sepsis. Noted to have Pulmonary infiltrates PAST MEDICAL HISTORY: stroke, seizure disorder, and chronic respiratory failure, decubitus, h/o TB and pneumonia. h/o sepsis PAST SURGICAL HISTORY: Includes a prior history of a trach and a G-tube. ALLERGIES: None. PHYSICAL EXAMINATION: Vital signs noted GENERAL APPEARANCE: The patient is a chronically ill-appearing male, in no apparent distress. unresponsive. NECK: Supple. Trach site is clean, dry, and intact. CARDS: RRR without MRG LUNGS: occasional rhonchi. moderate air entry; no wheeze ABDOMEN: Soft, nontender, and nondistended. GT EXTREMITIES: No clubbing or cyanosis. reduced skin turgor multiple decubitus NEURO: obtunded Labs noted Test 02/18/19 15:00 02/18/19 15:24 02/19/19 03:45 White Blood Count 23.5 K/UL (4.8-10.8) 17.5 K/UL (4.8-10.8) Red Blood Count 2.69 M/UL (4.70-6.10) 2.25 M/UL (4.70-6.10) Hemoglobin 7.5 G/DL (14.2-18.0) 6.2 G/DL (14.2-18.0) Hematocrit 25.0 % (42.0-52.0) 20.8 % (42.0-52.0) Mean Corpuscular Volume 93 FL (80-99) 93 FL (80-99) Mean Corpuscular Hemoglobin 28.0 PG (27.0-31.0) 27.4 PG (27.0-31.0) Mean Corpuscular Hemoglobin Concent 30.1 G/DL (32.0-36.0) 29.6 G/DL (32.0-36.0) Red Cell Distribution Width 18.1 % (11.6-14.8) 18.7 % (11.6-14.8) Platelet Count 310 K/UL (150-450) 294 K/UL (150-450) Mean Platelet Volume 5.1 FL (6.5-10.1) 5.3 FL (6.5-10.1) Neutrophils (%) (Auto) % (45.0-75.0) % (45.0-75.0) Lymphocytes (%) (Auto) % (20.0-45.0) % (20.0-45.0) Monocytes (%) (Auto) % (1.0-10.0) % (1.0-10.0) Eosinophils (%) (Auto) % (0.0-3.0) % (0.0-3.0) Basophils (%) (Auto) % (0.0-2.0) % (0.0-2.0) Differential Total Cells Counted 100 100 Neutrophils % (Manual) 93 % (45-75) 88 % (45-75) Lymphocytes % (Manual) 1 % (20-45) 4 % (20-45) Monocytes % (Manual) 3 % (1-10) 5 % (1-10) Eosinophils % (Manual) 1 % (0-3) 2 % (0-3) Basophils % (Manual) 0 % (0-2) 1 % (0-2) Band Neutrophils 2 % (0-8) 0 % (0-8) Toxic Granulation 1+ Platelet Estimate Adequate Adequate Platelet Morphology Normal Normal Polychromasia 1+ Hypochromasia 2+ 4+ Anisocytosis 2+ 2+ Prothrombin Time 11.4 SEC (9.30-11.50) Prothromb Time International Ratio 1.1 (0.9-1.1) Activated Partial Thromboplast Time 33 SEC (23-33) Sodium Level 155 MMOL/L (136-145) 154 MMOL/L (136-145) Potassium Level 5.1 MMOL/L (3.5-5.1) 3.9 MMOL/L (3.5-5.1) Chloride Level 114 MMOL/L (98-107) 113 MMOL/L (98-107) Carbon Dioxide Level 39 MMOL/L (21-32) 35 MMOL/L (21-32) Anion Gap 1 mmol/L (5-15) 6 mmol/L (5-15) Blood Urea Nitrogen 100 mg/dL (7-18) 87 mg/dL (7-18) Creatinine 1.3 MG/DL (0.55-1.30) 1.1 MG/DL (0.55-1.30) Estimat Glomerular Filtration Rate mL/min (>60) mL/min (>60) Glucose Level 120 MG/DL (74-106) 122 MG/DL (74-106) Lactic Acid Level 1.20 mmol/L (0.4-2.0) Calcium Level 10.1 MG/DL (8.5-10.1) 8.9 MG/DL (8.5-10.1) Phosphorus Level 4.9 MG/DL (2.5-4.9) Magnesium Level 3.6 MG/DL (1.8-2.4) Total Bilirubin 0.6 MG/DL (0.2-1.0) 0.5 MG/DL (0.2-1.0) Aspartate Amino Transf (AST/SGOT) 54 U/L (15-37) 42 U/L (15-37) Alanine Aminotransferase (ALT/SGPT) 26 U/L (12-78) 18 U/L (12-78) Alkaline Phosphatase 772 U/L (46-116) 591 U/L (46-116) Total Creatine Kinase 54 U/L (26-308) Creatine Kinase MB 0.8 NG/ML (0.0-3.6) Creatine Kinase MB Relative Index 1.4 Troponin I 0.000 ng/mL (0.000-0.056) Pro-B-Type Natriuretic Peptide 1490 pg/mL (0-125) Total Protein 8.7 G/DL (6.4-8.2) 7.3 G/DL (6.4-8.2) Albumin 1.4 G/DL (3.4-5.0) 1.0 G/DL (3.4-5.0) Globulin 7.3 g/dL 6.3 g/dL Albumin/Globulin Ratio 0.2 (1.0-2.7) 0.2 (1.0-2.7) Lipase 237 U/L (73-393) Urine Color Yellow Urine Appearance Cloudy Urine pH 6.5 (4.5-8.0) Urine Specific [place] 1.010 (1.005-1.035) Urine Protein 2+ (NEGATIVE) Urine Glucose (UA) Negative (NEGATIVE) Urine Ketones Negative (NEGATIVE) Urine Blood 4+ (NEGATIVE) Urine Nitrite Negative (NEGATIVE) Urine Bilirubin Negative (NEGATIVE) Urine Urobilinogen 8 MG/DL (0.0-1.0) Urine Leukocyte Esterase 3+ (NEGATIVE) Urine RBC 2-4 /HPF (0 - 0) Urine WBC 30-40 /HPF (0 - 0) Urine Squamous Epithelial Cells Few /LPF (NONE/OCC) Urine Bacteria Many /HPF (NONE) ASSESSMENT: toxic metabolic encephalopathy, history of stroke, chronic respiratory failure, hypernatremia, acute on chronic renal failure, chronic encephalopathy, seizure disorder, pulmonary tuberculosis, and anemia possible sepsis, leukocytosis, possible gib, leukocytosis, possible sepsis PLAN care noted transfuse IV antibiotics, empiric respiratory care Ventilatory support- no wean and maintain AC SNF meds supportive care as is suction oxygen therapy noted prognosis poor monitor for infection impression, plan, and exam edited and reviewed in detail care discussed with RN Subjective ROS Limited/Unobtainable: No Allergies: Coded Allergies: No Known Allergies (Unverified , 01/27/17) Objective Last 24 Hour Vital Signs Date Time Temp Pulse Resp B/P (MAP) Pulse Ox O2 Delivery O2 Flow Rate FiO2 02/21/19 15:03 70 22 40 02/21/19 13:32 80 21 40 02/21/19 12:00 67 02/21/19 12:00 40 02/21/19 12:00 Mechanical Ventilator 02/21/19 12:00 98.2 66 20 107/58 (74) 99 02/21/19 11:20 68 24 40 02/21/19 09:24 63 24 40 02/21/19 08:13 67 125/53 02/21/19 08:12 67 125/53 02/21/19 08:00 97.9 67 20 125/53 (77) 100 02/21/19 08:00 67 02/21/19 08:00 40 02/21/19 08:00 Mechanical Ventilator 02/21/19 07:51 67 21 40 02/21/19 04:36 72 26 40 40 02/21/19 04:00 Mechanical Ventilator 02/21/19 04:00 98.8 78 28 125/61 (82) 100 02/21/19 04:00 40 02/21/19 03:41 67 02/21/19 03:19 79 27 40 40 02/21/19 00:47 78 28 40 40 02/21/19 00:00 98.9 60 28 116/58 (77) 100 02/21/19 00:00 Mechanical Ventilator 02/20/19 23:51 66 02/20/19 23:29 68 24 40 40 02/20/19 20:44 70 125/58 02/20/19 20:33 62 21 40 40 02/20/19 20:00 98.8 68 23 121/63 (82) 100 02/20/19 20:00 40 02/20/19 20:00 Mechanical Ventilator 02/20/19 19:29 60 20 40 40 02/20/19 19:29 82 02/20/19 16:40 61 22 40 Intake and Output 02/20/19 02/21/19 19:00 07:00 Intake Total 1876.6 ml 1635.330 ml Output Total 300 ml 900 ml Balance 1576.6 ml 735.330 ml Intake Free Water 450 ml IV Total 866.6 ml 1235.330 ml Tube Feeding 440 ml 400 ml Other 120 ml Output Urine Total 300 ml 900 ml # Bowel Movements 2 1 Microbiology Date/Time Source Procedure Growth Status 02/18/19 17:00 Back Gram Stain - Final Resulted 02/18/19 17:00 Wound Culture - Preliminary Proteus Mirabilis Esbl Staphylococcus Aureus - Mrsa Gram Negative Bacillus 2 Diphtheroids Resulted Laboratory Tests 02/21/19 12:40: White Blood Count 11.9H, Red Blood Count 3.19L, Hemoglobin 8.9L, Hematocrit 29.0L, Mean Corpuscular Volume 91, Mean Corpuscular Hemoglobin 27.8, Mean Corpuscular Hemoglobin Concent 30.6L, Red Cell Distribution Width 17.0H, Platelet Count 333, Mean Platelet Volume 5.3L, Neutrophils (%) (Auto) 79.2H, Lymphocytes (%) (Auto) 11.6L, Monocytes (%) (Auto) 5.3, Eosinophils (%) (Auto) 3.6H, Basophils (%) (Auto) 0.3, Sodium Level 153H, Potassium Level 3.6, Chloride Level 115H, Carbon Dioxide Level 33H, Anion Gap 5, Blood Urea Nitrogen 43H, Creatinine 0.8, Estimat Glomerular Filtration Rate , Glucose Level 86, Calcium Level 9.3, Total Bilirubin 0.6, Aspartate Amino Transf (AST/SGOT) 37, Alanine Aminotransferase (ALT/SGPT) 13, Alkaline Phosphatase 617H, Total Protein 7.1, Albumin 1.0L, Globulin 6.1, Albumin/Globulin Ratio 0.2L Current Medications Medications (Trade) Dose Ordered Sig/Iram Route PRN Reason Start Time Stop Time Status Last Admin Dose Admin Acetaminophen (Tylenol) 650 mg Q4H PRN ORAL Mild Pain/Temp > 100.5 02/18/19 19:45 03/20/19 19:44 02/19/19 15:52 Acetaminophen/ Hydrocodone Bitart ([place] 5/325) 1 tab Q8H PRN GT For Pain 02/18/19 19:45 02/25/19 19:44 Albuterol/ Ipratropium (Albuterol/ Ipratropium) 3 ml Q4H PRN HHN Shortness of Breath 02/18/19 19:45 02/23/19 19:44 Amlodipine Besylate (Norvasc) 10 mg DAILY GT 02/19/19 09:00 03/21/19 08:59 02/21/19 08:13 Artificial Tears (Akwa-Tears) 2 drop Q2H PRN BOTH EYES DRY EYES 02/18/19 19:45 03/20/19 19:44 Aspirin (ASA) 81 mg DAILY GT 02/19/19 09:00 03/21/19 08:59 02/21/19 08:13 Atorvastatin Calcium (Lipitor) 10 mg BEDTIME GT 02/18/19 21:00 03/20/19 20:59 02/20/19 20:44 Doxazosin Mesylate (Cardura) 1 mg QHS GT 02/18/19 21:00 03/20/19 20:59 02/20/19 20:44 Lansoprazole (Prevacid) 30 mg Q12HR GT 02/18/19 21:00 03/20/19 20:59 02/21/19 08:13 Levetiracetam (Keppra) 750 mg Q12HR GT 02/18/19 21:00 03/20/19 20:59 02/21/19 08:14 Metoprolol Tartrate (Lopressor) 50 mg EVERY 12 HOURS GT 02/18/19 21:00 03/20/19 20:59 02/21/19 08:12 Multivitamins (Multivitamins) 1 tab DAILY GT 02/19/19 09:00 03/21/19 08:59 02/21/19 08:13 Piperacillin Sod/ Tazobactam Sod 3.375 gm/Sodium Chloride 110 ml @ 27.5 mls/hr EVERY 8 HOURS IVPB 02/18/19 22:00 02/23/19 21:59 02/21/19 13:29 Sodium Hypochlorite (Dakin's Quarter Strength) 1 applic DAILY TOPIC 02/19/19 10:00 03/21/19 09:59 02/21/19 08:13 Sodium Chloride 1,000 ml @ 100 mls/hr Q10H IV 02/18/19 19:45 03/20/19 19:44 02/21/19 08:01 Vancomycin HCl (Vanco rx to dose) 1 ea DAILY PRN MISC Per rx protocol 02/18/19 19:45 03/20/19 19:44 Vancomycin HCl 750 mg/Sodium Chloride 275 ml @ 183.333 mls/hr Q12H IVPB 02/20/19 09:00 02/25/19 08:59 02/21/19 08:17 Jones Rasmussen MD Feb 21, 2019 16:20
--- NOTE | 2019-02-21 19:27 | NUR ---
HAND-OFF: Report given to LALA Carballo.
--- NOTE | 2019-02-21 19:40 | NUR ---
NURSE NOTES: PATIENT OBTUNDED, ON TRACH TO VENT AC12/TV500/FIO2 40%/PEEP 5, O2 SATURATION 100% NOTED, ABDOMEN SOFT, G TUBE INTACT AND PATENT, ONGOING [place]SM[place] 1.5 AT 40ML/HR, NO RESIDUE NOTED, F/C INTACT AND PATENT, YELLOW URINE DRAINING GRAVITY, PERIPHERAL LINE TO RIGHT UPPER ARM, INTACT, ONGOING 1/2NS AT 100ML/HR, ON P200 BED, MADE LOWER BED POSITION, KEPT SZ PRECAUTION, CALL LIGHT WITHIN REACH, ON BED ALARM, WILL CONTINUE TO MONITOR.
[2019-02-21 20:00] VITALS: BP 135/65
[2019-02-21] MEDS: Doxazosin 1mg Tab GT SCH (20:42)
--- NOTE | 2019-02-21 22:00 | NUR ---
NURSE NOTES: ORAL CARE WAS DONE, REPOSITIONED, WILL CONTINUE PLAN OF CARE.
[2019-02-22] VITALS: BP 106/53
--- NOTE | 2019-02-22 00:21 | NUR ---
NURSE NOTES: KEPT HOB OVER 30 DEGREES, NO PAIN OR DISTRESS NOTED AT THIS TIME.
--- NOTE | 2019-02-22 02:30 | NUR ---
NURSE NOTES: ASLEEP STATUS, NO DISTRESS NOTED AT THIS TIME.
[2019-02-22 04:00] VITALS: BP 102/54
--- NOTE | 2019-02-22 04:10 | NUR ---
NURSE NOTES: MORNING CARE AND ORAL CARE WAS DONE.
[2019-02-22] MEDS: Piperacillin/Tazobactam 3.375 GM in NS 110 ML IVPB SCH ×3 (05:43→21:31)
--- NOTE | 2019-02-22 06:11 | NUR ---
NURSE NOTES: NO ACUTE DISTRESS NOTED AT THIS SHIFT.
[2019-02-22 06:28] LABS: BLOOD UREA NITROGEN 36 mg/dL (7-18)
[2019-02-22 06:52] LABS: ALANINE AMINOTRANSFERASE 16 U/L (12-78); ALBUMIN 0.9 G/DL (3.4-5.0); ALBUMIN/GLOBULIN RATIO 0.2 (1.0-2.7); ALKALINE PHOSPHATASE 637 U/L (46-116); ANION GAP 8 mmol/L (5-15); ASPARTATE AMINO TRANSFERASE 41 U/L (15-37); BILIRUBIN,TOTAL 0.5 MG/DL (0.2-1.0); CALCIUM 8.5 MG/DL (8.5-10.1); CARBON DIOXIDE 26 MMOL/L (21-32); CHLORIDE 116 MMOL/L (98-107); CREATININE 0.8 MG/DL (0.55-1.30); POTASSIUM 3.8 MMOL/L (3.5-5.1); SODIUM 150 MMOL/L (136-145)
--- NOTE | 2019-02-22 06:54 | NUR ---
HAND-OFF: Report given to LALA BENOIT.
--- NOTE | 2019-02-22 07:14 | NUR ---
NURSE NOTES: Received report from LALA Carballo. Patient is resting in bed, in stable condition. No s/sx of SOB, breathing is even and unlabored, vent settings are as ordered. Observed no presence of pain or discomfort at this time. Bed is in lowest position, brakes engaged. Call light is kept within easy reach. Will continue to monitor patient.
[2019-02-22 07:58] VITALS: BP 119/63
[2019-02-22 08:33] LABS: BASOPHILS % (AUTO) 0.3 % (0.0-2.0); EOSINOPHILS % (AUTO) 3.8 % (0.0-3.0); HEMATOCRIT 26.5 % (42.0-52.0); HEMOGLOBIN 8.4 G/DL (14.2-18.0); LYMPHOCYTES % (AUTO) 10.4 % (20.0-45.0); MEAN CORPUSCULAR VOLUME 90 FL (80-99); MONOCYTES % (AUTO) 5.4 % (1.0-10.0); NEUTROPHILS % (AUTO) 80.1 % (45.0-75.0); PLATELET COUNT 362 K/UL (150-450); RED BLOOD COUNT 2.95 M/UL (4.70-6.10); RED CELL DISTRIBUTION WIDTH 17.1 % (11.6-14.8); WHITE BLOOD COUNT 11.3 K/UL (4.8-10.8)
[2019-02-22] MEDS: levETIRAcetam 500mg/5ml Liquid GT SCH ×2 (08:52→20:31)
[2019-02-22] MEDS: Metoprolol Tartrate 50mg tab GT SCH ×2 (08:52→20:31)
[2019-02-22] MEDS: Aspirin Baby 81mg GT SCH (08:53)
[2019-02-22] MEDS: Dakin's 0.125% Soln (Quarter Strength) 16oz TOPIC SCH (08:54)
[2019-02-22] MEDS ORDERED: Vancomycin 750mg/NS 275ml IVPB SCH ×2 (09:00)
--- NOTE | 2019-02-22 09:00 | NUR ---
NURSE NOTES: Dr. Vásquez seen and examined patient. Informed MD that patient has swelling bilateral arms. MD acknowledged, no new orders given at this time. Will continue to monitor patient.
--- NOTE | 2019-02-22 10:37 | Pulmonology Progress Note ---
Assessment/Plan Assessment/Plan Pulmonary Progress Note Patient is a 73-year-old male chronically ill who is ventilator dependent. Transferred from intermediate facility due to severe renal impairment and anemia, worsening leukocytosis, and hypernatremia. Admitted for sepsis. Noted to have Pulmonary infiltrates PAST MEDICAL HISTORY: stroke, seizure disorder, and chronic respiratory failure, decubitus, h/o TB and pneumonia. h/o sepsis PAST SURGICAL HISTORY: Includes a prior history of a trach and a G-tube. ALLERGIES: None. PHYSICAL EXAMINATION: Vital signs noted GENERAL APPEARANCE: The patient is a chronically ill-appearing male, in no apparent distress. unresponsive. NECK: Supple. Trach site is clean, dry, and intact. CARDS: RRR without MRG LUNGS: occasional rhonchi. moderate air entry; no wheeze ABDOMEN: Soft, nontender, and nondistended. GT EXTREMITIES: No clubbing or cyanosis. reduced skin turgor multiple decubitus NEURO: obtunded Labs noted Test 02/18/19 15:00 02/18/19 15:24 02/19/19 03:45 White Blood Count 23.5 K/UL (4.8-10.8) 17.5 K/UL (4.8-10.8) Red Blood Count 2.69 M/UL (4.70-6.10) 2.25 M/UL (4.70-6.10) Hemoglobin 7.5 G/DL (14.2-18.0) 6.2 G/DL (14.2-18.0) Hematocrit 25.0 % (42.0-52.0) 20.8 % (42.0-52.0) Mean Corpuscular Volume 93 FL (80-99) 93 FL (80-99) Mean Corpuscular Hemoglobin 28.0 PG (27.0-31.0) 27.4 PG (27.0-31.0) Mean Corpuscular Hemoglobin Concent 30.1 G/DL (32.0-36.0) 29.6 G/DL (32.0-36.0) Red Cell Distribution Width 18.1 % (11.6-14.8) 18.7 % (11.6-14.8) Platelet Count 310 K/UL (150-450) 294 K/UL (150-450) Mean Platelet Volume 5.1 FL (6.5-10.1) 5.3 FL (6.5-10.1) Neutrophils (%) (Auto) % (45.0-75.0) % (45.0-75.0) Lymphocytes (%) (Auto) % (20.0-45.0) % (20.0-45.0) Monocytes (%) (Auto) % (1.0-10.0) % (1.0-10.0) Eosinophils (%) (Auto) % (0.0-3.0) % (0.0-3.0) Basophils (%) (Auto) % (0.0-2.0) % (0.0-2.0) Differential Total Cells Counted 100 100 Neutrophils % (Manual) 93 % (45-75) 88 % (45-75) Lymphocytes % (Manual) 1 % (20-45) 4 % (20-45) Monocytes % (Manual) 3 % (1-10) 5 % (1-10) Eosinophils % (Manual) 1 % (0-3) 2 % (0-3) Basophils % (Manual) 0 % (0-2) 1 % (0-2) Band Neutrophils 2 % (0-8) 0 % (0-8) Toxic Granulation 1+ Platelet Estimate Adequate Adequate Platelet Morphology Normal Normal Polychromasia 1+ Hypochromasia 2+ 4+ Anisocytosis 2+ 2+ Prothrombin Time 11.4 SEC (9.30-11.50) Prothromb Time International Ratio 1.1 (0.9-1.1) Activated Partial Thromboplast Time 33 SEC (23-33) Sodium Level 155 MMOL/L (136-145) 154 MMOL/L (136-145) Potassium Level 5.1 MMOL/L (3.5-5.1) 3.9 MMOL/L (3.5-5.1) Chloride Level 114 MMOL/L (98-107) 113 MMOL/L (98-107) Carbon Dioxide Level 39 MMOL/L (21-32) 35 MMOL/L (21-32) Anion Gap 1 mmol/L (5-15) 6 mmol/L (5-15) Blood Urea Nitrogen 100 mg/dL (7-18) 87 mg/dL (7-18) Creatinine 1.3 MG/DL (0.55-1.30) 1.1 MG/DL (0.55-1.30) Estimat Glomerular Filtration Rate mL/min (>60) mL/min (>60) Glucose Level 120 MG/DL (74-106) 122 MG/DL (74-106) Lactic Acid Level 1.20 mmol/L (0.4-2.0) Calcium Level 10.1 MG/DL (8.5-10.1) 8.9 MG/DL (8.5-10.1) Phosphorus Level 4.9 MG/DL (2.5-4.9) Magnesium Level 3.6 MG/DL (1.8-2.4) Total Bilirubin 0.6 MG/DL (0.2-1.0) 0.5 MG/DL (0.2-1.0) Aspartate Amino Transf (AST/SGOT) 54 U/L (15-37) 42 U/L (15-37) Alanine Aminotransferase (ALT/SGPT) 26 U/L (12-78) 18 U/L (12-78) Alkaline Phosphatase 772 U/L (46-116) 591 U/L (46-116) Total Creatine Kinase 54 U/L (26-308) Creatine Kinase MB 0.8 NG/ML (0.0-3.6) Creatine Kinase MB Relative Index 1.4 Troponin I 0.000 ng/mL (0.000-0.056) Pro-B-Type Natriuretic Peptide 1490 pg/mL (0-125) Total Protein 8.7 G/DL (6.4-8.2) 7.3 G/DL (6.4-8.2) Albumin 1.4 G/DL (3.4-5.0) 1.0 G/DL (3.4-5.0) Globulin 7.3 g/dL 6.3 g/dL Albumin/Globulin Ratio 0.2 (1.0-2.7) 0.2 (1.0-2.7) Lipase 237 U/L (73-393) Urine Color Yellow Urine Appearance Cloudy Urine pH 6.5 (4.5-8.0) Urine Specific [place] 1.010 (1.005-1.035) Urine Protein 2+ (NEGATIVE) Urine Glucose (UA) Negative (NEGATIVE) Urine Ketones Negative (NEGATIVE) Urine Blood 4+ (NEGATIVE) Urine Nitrite Negative (NEGATIVE) Urine Bilirubin Negative (NEGATIVE) Urine Urobilinogen 8 MG/DL (0.0-1.0) Urine Leukocyte Esterase 3+ (NEGATIVE) Urine RBC 2-4 /HPF (0 - 0) Urine WBC 30-40 /HPF (0 - 0) Urine Squamous Epithelial Cells Few /LPF (NONE/OCC) Urine Bacteria Many /HPF (NONE) ASSESSMENT: toxic metabolic encephalopathy, history of stroke, chronic respiratory failure, hypernatremia, acute on chronic renal failure, chronic encephalopathy, seizure disorder, pulmonary tuberculosis, and anemia possible sepsis, leukocytosis, possible gib, leukocytosis, possible sepsis PLAN care noted transfuse IV antibiotics, empiric respiratory care Ventilatory support- no wean and maintain AC SNF meds supportive care as is suction oxygen therapy noted prognosis poor monitor for infection impression, plan, and exam edited and reviewed in detail care discussed with RN Subjective ROS Limited/Unobtainable: No Allergies: Coded Allergies: No Known Allergies (Unverified , 01/27/17) Objective Last 24 Hour Vital Signs Date Time Temp Pulse Resp B/P (MAP) Pulse Ox O2 Delivery O2 Flow Rate FiO2 02/22/19 08:52 82 119/63 02/22/19 08:52 82 119/63 02/22/19 08:34 82 26 40 02/22/19 08:00 78 02/22/19 08:00 Mechanical Ventilator 02/22/19 08:00 40 02/22/19 07:58 98.1 79 20 119/63 (81) 100 02/22/19 07:20 78 28 40 02/22/19 04:50 75 19 40 02/22/19 04:00 97.9 72 25 102/54 (70) 100 02/22/19 04:00 Mechanical Ventilator 02/22/19 04:00 40 02/22/19 03:41 63 02/22/19 02:48 77 22 40 02/22/19 00:47 67 24 40 02/22/19 00:00 40 02/22/19 00:00 98.2 72 18 106/53 (70) 99 02/22/19 00:00 Mechanical Ventilator 02/21/19 23:35 72 02/21/19 23:16 76 19 40 02/21/19 20:44 87 22 40 02/21/19 20:43 85 135/65 02/21/19 20:00 40 02/21/19 20:00 Mechanical Ventilator 02/21/19 20:00 98.8 85 16 135/65 (88) 100 02/21/19 20:00 85 02/21/19 18:36 74 23 40 02/21/19 17:07 78 20 40 02/21/19 16:00 40 02/21/19 16:00 70 02/21/19 16:00 Mechanical Ventilator 02/21/19 16:00 99.0 79 20 127/54 (78) 99 02/21/19 15:03 70 22 40 02/21/19 13:32 80 21 40 02/21/19 12:00 67 02/21/19 12:00 40 02/21/19 12:00 Mechanical Ventilator 02/21/19 12:00 98.2 66 20 107/58 (74) 99 02/21/19 11:20 68 24 40 Intake and Output 02/21/19 02/22/19 18:59 06:59 Intake Total 907.5 ml 1847.5 ml Output Total 700 ml 700 ml Balance 207.5 ml 1147.5 ml Intake Free Water 300 ml IV Total 127.5 ml 1317.5 ml Tube Feeding 480 ml 480 ml Other 50 ml Output Urine Total 700 ml 700 ml # Bowel Movements 1 4 Laboratory Tests 02/21/19 12:40: White Blood Count 11.9H, Red Blood Count 3.19L, Hemoglobin 8.9L, Hematocrit 29.0L, Mean Corpuscular Volume 91, Mean Corpuscular Hemoglobin 27.8, Mean Corpuscular Hemoglobin Concent 30.6L, Red Cell Distribution Width 17.0H, Platelet Count 333, Mean Platelet Volume 5.3L, Neutrophils (%) (Auto) 79.2H, Lymphocytes (%) (Auto) 11.6L, Monocytes (%) (Auto) 5.3, Eosinophils (%) (Auto) 3.6H, Basophils (%) (Auto) 0.3, Sodium Level 153H, Potassium Level 3.6, Chloride Level 115H, Carbon Dioxide Level 33H, Anion Gap 5, Blood Urea Nitrogen 43H, Creatinine 0.8, Estimat Glomerular Filtration Rate , Glucose Level 86, Calcium Level 9.3, Total Bilirubin 0.6, Aspartate Amino Transf (AST/SGOT) 37, Alanine Aminotransferase (ALT/SGPT) 13, Alkaline Phosphatase 617H, Total Protein 7.1, Albumin 1.0L, Globulin 6.1, Albumin/Globulin Ratio 0.2L 02/21/19 20:25: Vancomycin Level Trough 26.9H 02/22/19 04:56: Sodium Level 150H, Potassium Level 3.8, Chloride Level 116H, Carbon Dioxide Level 26, Anion Gap 8, Blood Urea Nitrogen 36H, Creatinine 0.8, Estimat Glomerular Filtration Rate , Glucose Level 139H, Calcium Level 8.5, Total Bilirubin 0.5, Aspartate Amino Transf (AST/SGOT) 41H, Alanine Aminotransferase ( ALT/SGPT) 16, Alkaline Phosphatase 637H, Total Protein 6.0L, Albumin 0.9L, Globulin 5.1, Albumin/Globulin Ratio 0.2L 02/22/19 08:17: White Blood Count 11.3H, Red Blood Count 2.95L, Hemoglobin 8.4L, Hematocrit 26.5L, Mean Corpuscular Volume 90, Mean Corpuscular Hemoglobin 28.4, Mean Corpuscular Hemoglobin Concent 31.5L, Red Cell Distribution Width 17.1H, Platelet Count 362, Mean Platelet Volume 5.6L, Neutrophils (%) (Auto) 80.1H, Lymphocytes (%) (Auto) 10.4L, Monocytes (%) (Auto) 5.4, Eosinophils (%) (Auto) 3.8H, Basophils (%) (Auto) 0.3 Current Medications Medications (Trade) Dose Ordered Sig/Iram Route PRN Reason Start Time Stop Time Status Last Admin Dose Admin Acetaminophen (Tylenol) 650 mg Q4H PRN ORAL Mild Pain/Temp > 100.5 02/18/19 19:45 03/20/19 19:44 02/19/19 15:52 Acetaminophen/ Hydrocodone Bitart ([place] 5/325) 1 tab Q8H PRN GT For Pain 02/18/19 19:45 02/25/19 19:44 Albuterol/ Ipratropium (Albuterol/ Ipratropium) 3 ml Q4H PRN HHN Shortness of Breath 02/18/19 19:45 02/23/19 19:44 Amlodipine Besylate (Norvasc) 10 mg DAILY GT 02/19/19 09:00 03/21/19 08:59 02/22/19 08:52 Artificial Tears ([place]wa-Tears) 2 drop Q2H PRN BOTH EYES DRY EYES 02/18/19 19:45 03/20/19 19:44 Aspirin (ASA) 81 mg DAILY GT 02/19/19 09:00 03/21/19 08:59 02/22/19 08:53 Atorvastatin Calcium (Lipitor) 10 mg BEDTIME GT 02/18/19 21:00 03/20/19 20:59 02/21/19 20:42 Doxazosin Mesylate (Cardura) 1 mg QHS GT 02/18/19 21:00 03/20/19 20:59 02/21/19 20:42 Lansoprazole (Prevacid) 30 mg Q12HR GT 02/18/19 21:00 03/20/19 20:59 02/22/19 08:52 Levetiracetam (Keppra) 750 mg Q12HR GT 02/18/19 21:00 03/20/19 20:59 02/22/19 08:52 Metoprolol Tartrate (Lopressor) 50 mg EVERY 12 HOURS GT 02/18/19 21:00 03/20/19 20:59 02/22/19 08:52 Multivitamins (Multivitamins) 1 tab DAILY GT 02/19/19 09:00 03/21/19 08:59 02/22/19 08:52 Piperacillin Sod/ Tazobactam Sod 3.375 gm/Sodium Chloride 110 ml @ 27.5 mls/hr EVERY 8 HOURS IVPB 02/18/19 22:00 02/23/19 21:59 02/22/19 05:43 Sodium Hypochlorite ([place]'s Quarter Strength) 1 applic DAILY TOPIC 02/19/19 10:00 03/21/19 09:59 02/22/19 08:54 Sodium Chloride 1,000 ml @ 100 mls/hr Q10H IV 02/18/19 19:45 03/20/19 19:44 02/22/19 03:24 Vancomycin HCl (Vanco rx to dose) 1 ea DAILY PRN MISC Per rx protocol 02/18/19 19:45 03/20/19 19:44 Vancomycin HCl 750 mg/Sodium Chloride 275 ml @ 183.333 mls/hr Q24H IVPB 02/22/19 09:00 02/27/19 08:59 02/22/19 10:07 Jones Rasmussen MD Feb 22, 2019 10:37
--- NOTE | 2019-02-22 10:54 | General Progress Note ---
Assessment/Plan Problem List: (1) Decubitus ulcer ICD Codes: L89.90 - Pressure ulcer of unspecified site, unspecified stage SNOMED: 576949513 (2) Anemia ICD Codes: D64.9 - Anemia, unspecified SNOMED: 375168410 (3) Sepsis ICD Codes: A41.9 - Sepsis, unspecified organism SNOMED: 27983156 (4) HTN (hypertension) ICD Codes: I10 - Essential (primary) hypertension SNOMED: 83339722 (5) Encephalopathy acute ICD Codes: G93.40 - Encephalopathy, unspecified SNOMED: 10454400, 994162313 (6) BPH (benign prostatic hyperplasia) ICD Codes: N40.0 - Benign prostatic hyperplasia without lower urinary tract symptoms SNOMED: 846207789, 876043182 (7) UTI (urinary tract infection), bacterial ICD Codes: N39.0 - Urinary tract infection, site not specified; A49.9 - Bacterial infection, unspecified SNOMED: 195066959 Status: stable, progressing Assessment/Plan: iv abx follow up cultures vent support resp rx suctioning as needed tube feeds wound care monitor h/h transfuse as needed sz rx poor prognosis Subjective ROS Limited/Unobtainable: Yes Constitutional: Reports: malaise, weakness HEENT: Reports: no symptoms Cardiovascular: Reports: no symptoms Respiratory: Reports: shortness of breath Gastrointestinal/Abdominal: Reports: difficulty swallowing Genitourinary: Reports: no symptoms Neurologic/Psychiatric: Reports: pre-existing deficit, seizure Endocrine: Reports: no symptoms Hematologic/Lymphatic: Reports: anemia Allergies: Coded Allergies: No Known Allergies (Unverified , 01/27/17) All Systems: reviewed and negative except above Subjective no events. stable on the vent. no bleeding noted. on iv abx. culture noted. labs improving. remains poorly responsive no szs Objective Last 24 Hour Vital Signs Date Time Temp Pulse Resp B/P (MAP) Pulse Ox O2 Delivery O2 Flow Rate FiO2 02/22/19 08:52 82 119/63 02/22/19 08:52 82 119/63 02/22/19 08:34 82 26 40 02/22/19 08:00 78 02/22/19 08:00 Mechanical Ventilator 02/22/19 08:00 40 02/22/19 07:58 98.1 79 20 119/63 (81) 100 02/22/19 07:20 78 28 40 02/22/19 04:50 75 19 40 02/22/19 04:00 97.9 72 25 102/54 (70) 100 02/22/19 04:00 Mechanical Ventilator 02/22/19 04:00 40 02/22/19 03:41 63 02/22/19 02:48 77 22 40 02/22/19 00:47 67 24 40 02/22/19 00:00 40 02/22/19 00:00 98.2 72 18 106/53 (70) 99 02/22/19 00:00 Mechanical Ventilator 02/21/19 23:35 72 02/21/19 23:16 76 19 40 02/21/19 20:44 87 22 40 02/21/19 20:43 85 135/65 02/21/19 20:00 40 02/21/19 20:00 Mechanical Ventilator 02/21/19 20:00 98.8 85 16 135/65 (88) 100 02/21/19 20:00 85 02/21/19 18:36 74 23 40 02/21/19 17:07 78 20 40 02/21/19 16:00 40 02/21/19 16:00 70 02/21/19 16:00 Mechanical Ventilator 02/21/19 16:00 99.0 79 20 127/54 (78) 99 02/21/19 15:03 70 22 40 02/21/19 13:32 80 21 40 02/21/19 12:00 67 02/21/19 12:00 40 02/21/19 12:00 Mechanical Ventilator 02/21/19 12:00 98.2 66 20 107/58 (74) 99 02/21/19 11:20 68 24 40 Intake and Output 02/21/19 02/22/19 18:59 06:59 Intake Total 907.5 ml 1847.5 ml Output Total 700 ml 700 ml Balance 207.5 ml 1147.5 ml Intake Free Water 300 ml IV Total 127.5 ml 1317.5 ml Tube Feeding 480 ml 480 ml Other 50 ml Output Urine Total 700 ml 700 ml # Bowel Movements 1 4 Laboratory Tests 02/21/19 12:40: White Blood Count 11.9H, Red Blood Count 3.19L, Hemoglobin 8.9L, Hematocrit 29.0L, Mean Corpuscular Volume 91, Mean Corpuscular Hemoglobin 27.8, Mean Corpuscular Hemoglobin Concent 30.6L, Red Cell Distribution Width 17.0H, Platelet Count 333, Mean Platelet Volume 5.3L, Neutrophils (%) (Auto) 79.2H, Lymphocytes (%) (Auto) 11.6L, Monocytes (%) (Auto) 5.3, Eosinophils (%) (Auto) 3.6H, Basophils (%) (Auto) 0.3, Sodium Level 153H, Potassium Level 3.6, Chloride Level 115H, Carbon Dioxide Level 33H, Anion Gap 5, Blood Urea Nitrogen 43H, Creatinine 0.8, Estimat Glomerular Filtration Rate , Glucose Level 86, Calcium Level 9.3, Total Bilirubin 0.6, Aspartate Amino Transf (AST/SGOT) 37, Alanine Aminotransferase (ALT/SGPT) 13, Alkaline Phosphatase 617H, Total Protein 7.1, Albumin 1.0L, Globulin 6.1, Albumin/Globulin Ratio 0.2L 02/21/19 20:25: Vancomycin Level Trough 26.9H 02/22/19 04:56: Sodium Level 150H, Potassium Level 3.8, Chloride Level 116H, Carbon Dioxide Level 26, Anion Gap 8, Blood Urea Nitrogen 36H, Creatinine 0.8, Estimat Glomerular Filtration Rate , Glucose Level 139H, Calcium Level 8.5, Total Bilirubin 0.5, Aspartate Amino Transf (AST/SGOT) 41H, Alanine Aminotransferase ( ALT/SGPT) 16, Alkaline Phosphatase 637H, Total Protein 6.0L, Albumin 0.9L, Globulin 5.1, Albumin/Globulin Ratio 0.2L 02/22/19 08:17: White Blood Count 11.3H, Red Blood Count 2.95L, Hemoglobin 8.4L, Hematocrit 26.5L, Mean Corpuscular Volume 90, Mean Corpuscular Hemoglobin 28.4, Mean Corpuscular Hemoglobin Concent 31.5L, Red Cell Distribution Width 17.1H, Platelet Count 362, Mean Platelet Volume 5.6L, Neutrophils (%) (Auto) 80.1H, Lymphocytes (%) (Auto) 10.4L, Monocytes (%) (Auto) 5.4, Eosinophils (%) (Auto) 3.8H, Basophils (%) (Auto) 0.3 Height (Feet): 6 Height (Inches): 0.00 Weight (Pounds): 130 Objective General Appearance: WD/WN, confused, cachetic Neck: non-tender, supple Cardiovascular: normal peripheral pulses, normal rate, regular rhythm Respiratory/Chest: chest wall non-tender, lungs clear, normal breath sounds Edema: no edema noted Arm (L), no edema noted Arm (R), no edema noted Leg (L), no edema noted Leg (R), no edema noted Pedal (L), no edema noted Pedal (R), no edema noted Generalized Jarrod Vásquez MD Feb 22, 2019 10:54
[2019-02-22 12:00] VITALS: BP 111/59
[2019-02-22] MEDS ORDERED: 1/2 NS 1000ml IV ONE (15:24)
[2019-02-22] MEDS ORDERED: Tubing IV Secondary IV ONE (15:24)
[2019-02-22] MEDS ORDERED: NS 275ml ONE (15:24)
[2019-02-22 16:00] VITALS: BP 106/53
--- NOTE | 2019-02-22 16:49 | NUR ---
NURSE NOTES: Contacted and informed Dr. Vásquez that their order for DuoNeb 0.5-3 (2.5) mg/3ml Q4HR PRN and Zosyn 3.375 GM IVBP Q8HR will be expiring tomorrow. Dr. Vásquez acknowledged and ordered to continue medications in hospital stay. Orders renewed. Noted. Will continue to monitor patient.
[2019-02-22] MEDS ORDERED: Albuterol/Ipratropium 3ml neb HHN PRN (17:00)
--- NOTE | 2019-02-22 19:23 | NUR ---
HAND-OFF: Report given to LALA Carballo.
--- NOTE | 2019-02-22 19:27 | NUR ---
RESPIRATORY NOTE: PT. RECEIVED STABLE ON CURRENT VENT SETTINGS: AC/VC: 12, 500, 40%, +5. ALARMS ARE ON AND AUDIBLE. VENT CIRCUIT SECURE AND OUT OF THE WAY. NO S/S OF RESPIRATORY DISTRESS NOTED AT THIS TIME. EXTERNAL ALARM CABLE IN PLACE AND OPERATIONAL. WILL CONTINUE TO MONITOR PT.
--- NOTE | 2019-02-22 19:53 | Surgery Progress Note ---
Surgery Progress Note Subjective Additional Comments no acute events leukocytosis trending down exam unchanged Objective Last 24 Hour Vital Signs Date Time Temp Pulse Resp B/P (MAP) Pulse Ox O2 Delivery O2 Flow Rate FiO2 02/22/19 17:25 84 20 40 02/22/19 16:00 98.0 64 20 106/53 (70) 100 02/22/19 16:00 40 02/22/19 16:00 65 02/22/19 16:00 Mechanical Ventilator 02/22/19 15:29 89 18 40 02/22/19 13:13 82 26 40 02/22/19 12:00 63 02/22/19 12:00 40 02/22/19 12:00 Mechanical Ventilator 02/22/19 12:00 97.9 78 20 111/59 (76) 100 02/22/19 10:59 60 21 40 02/22/19 08:52 82 119/63 02/22/19 08:52 82 119/63 02/22/19 08:34 82 26 40 02/22/19 08:00 78 02/22/19 08:00 Mechanical Ventilator 02/22/19 08:00 40 02/22/19 07:58 98.1 79 20 119/63 (81) 100 02/22/19 07:20 78 28 40 02/22/19 04:50 75 19 40 02/22/19 04:00 97.9 72 25 102/54 (70) 100 02/22/19 04:00 Mechanical Ventilator 02/22/19 04:00 40 02/22/19 03:41 63 02/22/19 02:48 77 22 40 02/22/19 00:47 67 24 40 02/22/19 00:00 40 02/22/19 00:00 98.2 72 18 106/53 (70) 99 02/22/19 00:00 Mechanical Ventilator 02/21/19 23:35 72 02/21/19 23:16 76 19 40 02/21/19 20:44 87 22 40 02/21/19 20:43 85 135/65 02/21/19 20:00 40 02/21/19 20:00 Mechanical Ventilator 02/21/19 20:00 98.8 85 16 135/65 (88) 100 02/21/19 20:00 85 I&O Intake and Output 02/21/19 02/22/19 19:00 07:00 Intake Total 880 ml 1747.5 ml Output Total 700 ml 700 ml Balance 180 ml 1047.5 ml Intake Free Water 300 ml IV Total 100 ml 1217.5 ml Tube Feeding 480 ml 480 ml Other 50 ml Output Urine Total 700 ml 700 ml # Bowel Movements 1 4 Dressing: other Wound: other Drains: other Cardiovascular: RSR Respiratory: decreased breath sounds Abdomen: soft, present bowel sounds, non-distended Extremities: no edema Laboratory Tests Test 02/21/19 20:25 02/22/19 04:56 02/22/19 08:17 Vancomycin Level Trough 26.9 ug/mL (5.0-12.0) H Sodium Level 150 MMOL/L (136-145) H Potassium Level 3.8 MMOL/L (3.5-5.1) Chloride Level 116 MMOL/L (98-107) H Carbon Dioxide Level 26 MMOL/L (21-32) Anion Gap 8 mmol/L (5-15) Blood Urea Nitrogen 36 mg/dL (7-18) H Creatinine 0.8 MG/DL (0.55-1.30) Estimat Glomerular Filtration Rate mL/min (>60) Glucose Level 139 MG/DL (74-106) H Calcium Level 8.5 MG/DL (8.5-10.1) Total Bilirubin 0.5 MG/DL (0.2-1.0) Aspartate Amino Transf (AST/SGOT) 41 U/L (15-37) H Alanine Aminotransferase (ALT/SGPT) 16 U/L (12-78) Alkaline Phosphatase 637 U/L (46-116) H Total Protein 6.0 G/DL (6.4-8.2) L Albumin 0.9 G/DL (3.4-5.0) L Globulin 5.1 g/dL Albumin/Globulin Ratio 0.2 (1.0-2.7) L White Blood Count 11.3 K/UL (4.8-10.8) H Red Blood Count 2.95 M/UL (4.70-6.10) L Hemoglobin 8.4 G/DL (14.2-18.0) L Hematocrit 26.5 % (42.0-52.0) L Mean Corpuscular Volume 90 FL (80-99) Mean Corpuscular Hemoglobin 28.4 PG (27.0-31.0) Mean Corpuscular Hemoglobin Concent 31.5 G/DL (32.0-36.0) L Red Cell Distribution Width 17.1 % (11.6-14.8) H Platelet Count 362 K/UL (150-450) Mean Platelet Volume 5.6 FL (6.5-10.1) L Neutrophils (%) (Auto) 80.1 % (45.0-75.0) H Lymphocytes (%) (Auto) 10.4 % (20.0-45.0) L Monocytes (%) (Auto) 5.4 % (1.0-10.0) Eosinophils (%) (Auto) 3.8 % (0.0-3.0) H Basophils (%) (Auto) 0.3 % (0.0-2.0) Plan Problems: (1) Leukocytosis Assessment & Plan: Sepsis with leukocytosis. Labs trending down. On IV antibiotics. Continue current treatment plan (2) Decubitus ulcer Assessment & Plan: Pt presented on admission with multiple pressure injuries. Resolving pressure injury L occipital. Dry pink epithelial noted. Skin assessed under trach collar and no areas of concerns noted . R and L ears dry . Full thickness pressure injury with undermining thoracic spine . Base of wound 75% granular with 25% fibrinous slough. Mild odor noted.(L)8.5cm x (W)6.5cmx(D) 1cm, undermining clockwise 6-1 by 3cm @12o'clock. Full thickness pressure injury L trochanter. 100% mixed necrosis/slough at base of wound and undermined borders.Non-blanchable erythema with induration noted periwound. Mild odor noted .(L)3.5cm x (W)4.5cm. Resolving DTPI L ischium .Centrally wound is red and fluctuant .Bone is palpable. Black with red tinged indurated borders noted. (L) (L)4.4cm x (W) 3.2cm. Ful thickness pressure injury R Iliac with 10% velazquez slough centrally.90% granular.Edges adherent and flat. (L)3cm x (W)3.2cm x(D)0.2cm. No odor or exudate noted.Darker skin tone without fluctuance noted periwound. Full thickness pressure injury with undermining R trochanter. Base of wound 60^ beefy red with 40% velazquez slough.erythejma noted along borders. Small amt seropurulent exudate that is mildly odorous.(L)5.5cm x (W)6.6cm x (D)1.5cm, undermining clockwise 12-12 by 4.5cm @3o'clock. Full thickness pressure injury R ischium (L)4.2cm x (W)5.5cm x(D)1.6cm, undermining 12-12 by 1.8cm @12o'clock .Base of wound 60% granular ,40% velazquez slough undermined borders.Wound has mild odor with small amt seropurulent exudate.darker skin tone that is indurated periwound. Resolving pressure injury sacrum . Base of wound dry with pink epithelial.with scattered shearing within base of wound. L heel boggy with non-blanchable erythema. DTPI R heel and Lateral aspect .Base of wound is maroon with fluctuance. (L) 4.5cm x (W)7.3cm. Tx.Plan. Cleanse wounds Thoracic and lumbar spine with Dakin's 0.125% segun. Pack with Dakin's moist gauze. Apply Moisture Barrier Paste periwound. Cover each wound with Optifoam drsg.Twice Daily and prn. Cleanse wound L trochanter and L ischium with Dakin's 0.125% segun. Pack with Dakin's moist Gauze.Apply Moisture Barrier paste periwound. Cover with Optifoam drsg. Twice daily and prn. Cleanse wounds R iliac ,R trochanter,R ischium with Dakin's 0.125% segun. Pack with Dakin's moist gauze. Apply Moisture Barrier Paste periwound. Cover with Optifoam drsg Twice daily and prn. Apply Moisture Barrier paste to sacrum. Cover with Optifoam drsg. Change every 3 days and prn. Apply Cavilon Skin Barrier to Both heels. Cover each heel with Optifoam drsg. Change every 7 days and prn. Air Fluidized Mattress. Reposition at least every 2hours or as tolerated. Off-load heels with pillow. (3) Sepsis Assessment & Plan: Continue with IV antibiotics as per infectious disease. Awaiting blood cultures. Trend labs Thank you (4) Anemia (5) Dementia (6) Dyspnea (7) Respiratory distress (8) Hyperlipidemia (9) Aspiration pneumonia (10) Aspiration pneumonia (11) Vitamin B 12 deficiency (12) Encephalopathy (13) Pneumonia (14) Status epilepticus (15) HTN (hypertension) (16) Encephalopathy acute (17) BPH (benign prostatic hyperplasia) (18) Abnormal LFTs (19) UTI (urinary tract infection), bacterial (20) Probable sepsis (21) Toxic metabolic encephalopathy (2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 (23) Zev Mchugh Feb 22, 2019 19:53
[2019-02-22 20:00] VITALS: BP 121/58
[2019-02-22] MEDS: Doxazosin 1mg Tab GT SCH (20:31)
--- NOTE | 2019-02-22 22:00 | NUR ---
NURSE NOTES: ORAL CARE AND REPOSITIONED.
[2019-02-23] VITALS: BP 106/54
--- NOTE | 2019-02-23 00:10 | NUR ---
NURSE NOTES: G TUBE INTACT AND PATENT, NO RESIDUE NOTED, NO PAIN OR DISTRESS NOTED AT THIS TIME.
--- NOTE | 2019-02-23 02:45 | NUR ---
NURSE NOTES: MORNING WAS DONE, FOUND G TUBE SITE LEAKED, HOLE FEEDING, WILL CONTINUE TO MONITOR.
--- NOTE | 2019-02-23 03:07 | NUR ---
HAND-OFF: Report given to LALA SALAS.
--- NOTE | 2019-02-23 03:08 | NUR ---
NURSE NOTES: Received bedside report from LALA Aragon.Patient stable,obtunded,SR on potline monitor,no s/s of pain,no respiratory distress noted,trach Portex 7 tolerated setting well,GT order with Osmolite 1.5@ 40 ml/hr,stopped d/t leaking,next shift will endorse,BS active in all quadrants,IV asymptomatic intact on BASIL running with 1/2 NS @100ml/hr,patient clean and dry,bed secured in a low safety position,call light within a reach,will continue to monitor and follow POC
[2019-02-23 04:00] VITALS: BP 118/55
--- NOTE | 2019-02-23 04:42 | NUR ---
NURSE NOTES: GT flushed and observed for leaking,no leakage noted,no residual at this moment,feeding restarted,will continue to monitor and flush GT.
[2019-02-23 04:51] LABS: HEMATOCRIT 25.2 % (42.0-52.0); HEMOGLOBIN 7.8 G/DL (14.2-18.0); MEAN CORPUSCULAR VOLUME 90 FL (80-99); PLATELET COUNT 356 K/UL (150-450); RED BLOOD COUNT 2.79 M/UL (4.70-6.10); RED CELL DISTRIBUTION WIDTH 16.5 % (11.6-14.8); WHITE BLOOD COUNT 10.5 K/UL (4.8-10.8)
[2019-02-23 04:57] LABS: ALANINE AMINOTRANSFERASE 11 U/L (12-78); ALBUMIN 0.9 G/DL (3.4-5.0); ALBUMIN/GLOBULIN RATIO 0.2 (1.0-2.7); ALKALINE PHOSPHATASE 561 U/L (46-116); ANION GAP 6 mmol/L (5-15); ASPARTATE AMINO TRANSFERASE 30 U/L (15-37); BILIRUBIN,TOTAL 0.4 MG/DL (0.2-1.0); BLOOD UREA NITROGEN 28 mg/dL (7-18); CALCIUM 8.9 MG/DL (8.5-10.1); CARBON DIOXIDE 29 MMOL/L (21-32); CHLORIDE 113 MMOL/L (98-107); CREATININE 0.7 MG/DL (0.55-1.30); POTASSIUM 3.4 MMOL/L (3.5-5.1); SODIUM 148 MMOL/L (136-145)
--- NOTE | 2019-02-23 05:12 | NUR ---
RESPIRATORY NOTE: PT REMAINED STABLE ON CMV WITH CURRENT SETTINGS. PT WAS SXN'D PRN WITH NO ADVERSE REACTION. AIRWAY IS MIDLINE, SECURE AND PATENT. VENT CIRCUIT AND SX TUBING ARE SECURE AND OUT OF THE WAY. NO S/S OF RESPIRATORY DISTRESS NOTED AT THIS TIME.
[2019-02-23] MEDS: Piperacillin/Tazobactam 3.375 GM in NS 110 ML IVPB SCH (06:49)
--- NOTE | 2019-02-23 07:13 | NUR ---
HAND-OFF: Report given to LALA Lopez.Patient stable,no s/s of pain,no respiratory distress noted.
--- NOTE | 2019-02-23 07:30 | NUR ---
NURSE NOTES: Noted pt to have SCD on bilat lower extremities but no venous duplex order in. Dr Vásquez was on the floor and informed, also informed him of pt's current potassium level 3.4. Dr Vásquez states he will put in orders. SCDs will be off until venoud duplex scan is completed and confirmed negative.
--- NOTE | 2019-02-23 07:36 | NUR ---
NURSE NOTES: Received pt from LALA Leggett in stable condition with no cardiopulmonary distress noted. Pt is obtunded, trache to vent Portex 7 AC 12 TV 500 FiO2 40% Peep5. GT noted running osmolite 1.5 at 40cc/hr. F/C noted draining yellow urine. Skin alteratons noted. Pt has a BASIL 20g IV. Bed is in lowest position with alarm on, side rails up x 2 and padded per seizure precaution, call light within reach, will continue to monitor pt.
[2019-02-23 08:00] VITALS: BP 125/62
--- NOTE | 2019-02-23 08:18 | Pulmonology Progress Note ---
Assessment/Plan Assessment/Plan ASSESSMENT: toxic metabolic encephalopathy, history of stroke, chronic respiratory failure, hypernatremia, acute on chronic renal failure, chronic encephalopathy, seizure disorder, pulmonary tuberculosis, and anemia possible sepsis, leukocytosis, possible gib, leukocytosis, possible sepsis, polymicrobial infection PLAN care noted cultures reviewd IV antibiotics, change to bactrim and amikacin dc zosyn and vanco respiratory care as is Ventilatory support- no wean and maintain AC SNF meds supportive care as is suction as needed off load oxygen therapy noted prognosis poor ID follow up and recommendations impression, plan, and exam edited and reviewed in detail care discussed with RN Subjective ROS Limited/Unobtainable: Yes Allergies: Coded Allergies: No Known Allergies (Unverified , 01/27/17) Subjective care noted and reviewed no distress on vent poor LOC Objective Last 24 Hour Vital Signs Date Time Temp Pulse Resp B/P (MAP) Pulse Ox O2 Delivery O2 Flow Rate FiO2 02/23/19 06:59 68 22 40 02/23/19 05:12 75 18 40 02/23/19 04:00 40 02/23/19 04:00 Mechanical Ventilator 02/23/19 04:00 97.9 67 28 118/55 (76) 97 02/23/19 03:49 62 02/23/19 03:11 61 21 40 02/23/19 00:45 64 22 40 02/23/19 00:00 97.7 64 26 106/54 (71) 99 02/23/19 00:00 Mechanical Ventilator 02/22/19 23:25 63 02/22/19 22:53 59 20 40 02/22/19 21:04 60 24 40 02/22/19 20:31 65 116/59 02/22/19 20:00 40 02/22/19 20:00 Mechanical Ventilator 02/22/19 20:00 97.7 66 20 121/58 (79) 100 02/22/19 19:27 67 20 40 02/22/19 19:24 65 02/22/19 17:25 84 20 40 02/22/19 16:00 98.0 64 20 106/53 (70) 100 02/22/19 16:00 40 02/22/19 16:00 65 02/22/19 16:00 Mechanical Ventilator 02/22/19 15:29 89 18 40 02/22/19 13:13 82 26 40 02/22/19 12:00 63 02/22/19 12:00 40 02/22/19 12:00 Mechanical Ventilator 02/22/19 12:00 97.9 78 20 111/59 (76) 100 02/22/19 10:59 60 21 40 02/22/19 08:52 82 119/63 02/22/19 08:52 82 119/63 02/22/19 08:34 82 26 40 Intake and Output 02/22/19 02/23/19 19:00 07:00 Intake Total 760 ml 1550.0 ml Output Total 750 ml 900 ml Balance 10 ml 650.0 ml Intake Free Water 180 ml 50 ml IV Total 100 ml 1010.0 ml Tube Feeding 480 ml 430 ml Other 60 ml Output Urine Total 750 ml 900 ml # Bowel Movements 4 Objective WDWN chronically ill trace coarse breath sounds bilaterally without rhonchi or wheeze [id number] without MRG NABS nontender no HSM; Gt no CC; contractures nonfocal poor LOC wounds noted reviewed and edited Laboratory Tests 02/22/19 08:17: White Blood Count 11.3H, Red Blood Count 2.95L, Hemoglobin 8.4L, Hematocrit 26.5L, Mean Corpuscular Volume 90, Mean Corpuscular Hemoglobin 28.4, Mean Corpuscular Hemoglobin Concent 31.5L, Red Cell Distribution Width 17.1H, Platelet Count 362, Mean Platelet Volume 5.6L, Neutrophils (%) (Auto) 80.1H, Lymphocytes (%) (Auto) 10.4L, Monocytes (%) (Auto) 5.4, Eosinophils (%) (Auto) 3.8H, Basophils (%) (Auto) 0.3 02/23/19 03:20: White Blood Count 10.5, Red Blood Count 2.79L, Hemoglobin 7.8L, Hematocrit 25.2L , Mean Corpuscular Volume 90, Mean Corpuscular Hemoglobin 28.1, Mean Corpuscular Hemoglobin Concent 31.0L, Red Cell Distribution Width 16.5H, Platelet Count 356, Mean Platelet Volume 5.4L, Neutrophils (%) (Auto) , Lymphocytes (%) (Auto) , Monocytes (%) (Auto) , Eosinophils (%) (Auto) , Basophils (%) (Auto) , Sodium Level 148H, Potassium Level 3.4L, Chloride Level 113H, Carbon Dioxide Level 29, Anion Gap 6, Blood Urea Nitrogen 28H, Creatinine 0.7, Estimat Glomerular Filtration Rate , Glucose Level 88, Calcium Level 8.9, Total Bilirubin 0.4, Aspartate Amino Transf (AST/SGOT) 30, Alanine Aminotransferase (ALT/SGPT) 11L, Alkaline Phosphatase 561H, Total Protein 6.7, Albumin 0.9L, Globulin 5.8, Albumin/Globulin Ratio 0.2L Current Medications Medications (Trade) Dose Ordered Sig/Iram Route PRN Reason Start Time Stop Time Status Last Admin Dose Admin Acetaminophen (Tylenol) 650 mg Q4H PRN ORAL Mild Pain/Temp > 100.5 02/18/19 19:45 03/20/19 19:44 02/19/19 15:52 Acetaminophen/ Hydrocodone Bitart (Beals 5/325) 1 tab Q8H PRN GT For Pain 02/18/19 19:45 02/25/19 19:44 Albuterol/ Ipratropium (Albuterol/ Ipratropium) 3 ml Q4H PRN HHN Shortness of Breath 02/22/19 17:00 03/02/19 16:59 Amlodipine Besylate (Norvasc) 10 mg DAILY GT 02/19/19 09:00 03/21/19 08:59 02/22/19 08:52 Artificial Tears (Akwa-Tears) 2 drop Q2H PRN BOTH EYES DRY EYES 02/18/19 19:45 03/20/19 19:44 Aspirin (ASA) 81 mg DAILY GT 02/19/19 09:00 03/21/19 08:59 02/22/19 08:53 Atorvastatin Calcium (Lipitor) 10 mg BEDTIME GT 02/18/19 21:00 03/20/19 20:59 02/22/19 20:31 Doxazosin Mesylate (Cardura) 1 mg QHS GT 02/18/19 21:00 03/20/19 20:59 02/22/19 20:31 Lansoprazole (Prevacid) 30 mg Q12HR GT 02/18/19 21:00 03/20/19 20:59 02/22/19 20:31 Levetiracetam (Keppra) 750 mg Q12HR GT 02/18/19 21:00 03/20/19 20:59 02/22/19 20:31 Metoprolol Tartrate (Lopressor) 50 mg EVERY 12 HOURS GT 02/18/19 21:00 03/20/19 20:59 02/22/19 20:31 Multivitamins (Multivitamins) 1 tab DAILY GT 02/19/19 09:00 03/21/19 08:59 02/22/19 08:52 Piperacillin Sod/ Tazobactam Sod 3.375 gm/Sodium Chloride 110 ml @ 27.5 mls/hr EVERY 8 HOURS IVPB 02/22/19 22:00 03/02/19 22:00 02/23/19 06:49 Sodium Hypochlorite (Dakin's Quarter Strength) 1 applic DAILY TOPIC 02/19/19 10:00 03/21/19 09:59 02/22/19 08:54 Sodium Chloride 1,000 ml @ 100 mls/hr Q10H IV 02/18/19 19:45 03/20/19 19:44 02/22/19 23:16 Vancomycin HCl (Vanco rx to dose) 1 ea DAILY PRN MISC Per rx protocol 02/18/19 19:45 03/20/19 19:44 Vancomycin HCl 750 mg/Sodium Chloride 275 ml @ 183.333 mls/hr Q24H IVPB 02/22/19 09:00 02/27/19 08:59 02/22/19 10:07 Nakul Cisse MD Feb 23, 2019 08:18
[2019-02-23] MEDS: levETIRAcetam 500mg/5ml Liquid GT SCH ×2 (08:26→20:42)
[2019-02-23] MEDS: Aspirin Baby 81mg GT SCH (08:27)
[2019-02-23] MEDS: Metoprolol Tartrate 50mg tab GT SCH ×2 (08:28→20:43)
[2019-02-23] MEDS: Dakin's 0.125% Soln (Quarter Strength) 16oz TOPIC SCH (08:30)
[2019-02-23] MEDS ORDERED: Amikacin Rx to dose MISC PRN (08:30)
[2019-02-23] MEDS: Bactrim-DS 1 tab ORAL SCH ×2 (08:38→20:42)
[2019-02-23] MEDS ORDERED: LORazepam Inj 2mg/ml 1ml IV PRN (10:00)
[2019-02-23] MEDS ORDERED: Amikacin 900 MG in NS 110 ML IV SCH (11:00)
[2019-02-23 12:00] VITALS: BP 110/52
--- NOTE | 2019-02-23 13:08 | NUR ---
RD ASSESSMENT & RECOMMENDATIONS SEE CARE ACTIVITY FOR COMPLETE ASSESSMENT DAILY ESTIMATED NEEDS: Needs based on Underweight, TF [employer], Cachetic, Critical care, wounds/56.8kg 30-40 kcals/kg 1997-9233 total kcals 1.5-2 g protein/kg 85-114 g total protein 25-30 mL/kg 0443-2600 total fluid mLs NUTRITION DIAGNOSIS: 2) Increased kcal/prot needs R/T underweight status w/ wasting, and wound healing as evidenced by @84% [place] Body Weight, generalized wasting, w/ multiple full thickness wounds, refer to WC eval. 2) Swallowing difficulty r/t dysphagia, respiratory status as evidenced by pt is PEG dep, trach/vent dep. . CURRENT TF:Osmolite 1.5 @40 ml + Prosource x4 ENTERAL NUTRITION RECOMMENDATIONS: *TF CHANGE* Vital AF 1.2 @ 65ml/hr x 24 hrs to provide 1560ml, 1872kcal, 117g prot, 1265ml free water - Rec TF change to vital 1.2. Start @25ml/hr. advance as tolerated 10ml q4-6 hrs to goal. - Meets 100% est kcal and protein needs. - HOB over 30 degrees/ water flush per MD ADDITIONAL RECOMMENDATIONS: 1) WOUND HEALING: Continue Vit C and Edgard 1pkt BID Add ZnSO4 220mg daily x10 days 2) RECALIBRATED BED SCALE FOR ACCURATE CBW + weekly wt monitoring given underweight status 3) Check lytes daily, replete as needed 4) PER SNF: FEBRUARY 2019 WEIGHT 125 LBS + HEIGHT OF 67 INCHES.
--- NOTE | 2019-02-23 13:34 | Surgery Progress Note ---
Surgery Progress Note Subjective Additional Comments no acute events exam unchanged dressings changed Objective Last 24 Hour Vital Signs Date Time Temp Pulse Resp B/P (MAP) Pulse Ox O2 Delivery O2 Flow Rate FiO2 02/23/19 12:58 61 29 40 02/23/19 12:00 61 02/23/19 12:00 40 02/23/19 12:00 Mechanical Ventilator 02/23/19 12:00 97.0 65 25 110/52 (71) 100 02/23/19 10:39 60 20 40 02/23/19 09:10 59 21 40 02/23/19 08:28 65 125/62 02/23/19 08:27 65 125/62 02/23/19 08:00 40 02/23/19 08:00 97.7 62 20 125/62 (83) 100 02/23/19 08:00 65 02/23/19 08:00 Mechanical Ventilator 02/23/19 06:59 68 22 40 02/23/19 05:12 75 18 40 02/23/19 04:00 40 02/23/19 04:00 Mechanical Ventilator 02/23/19 04:00 97.9 67 28 118/55 (76) 97 02/23/19 03:49 62 02/23/19 03:11 61 21 40 02/23/19 00:45 64 22 40 02/23/19 00:00 97.7 64 26 106/54 (71) 99 02/23/19 00:00 Mechanical Ventilator 02/22/19 23:25 63 02/22/19 22:53 59 20 40 02/22/19 21:04 60 24 40 02/22/19 20:31 65 116/59 02/22/19 20:00 40 02/22/19 20:00 Mechanical Ventilator 02/22/19 20:00 97.7 66 20 121/58 (79) 100 02/22/19 19:27 67 20 40 02/22/19 19:24 65 02/22/19 17:25 84 20 40 02/22/19 16:00 98.0 64 20 106/53 (70) 100 02/22/19 16:00 40 02/22/19 16:00 65 02/22/19 16:00 Mechanical Ventilator 02/22/19 15:29 89 18 40 I&O Intake and Output 02/22/19 02/23/19 19:00 07:00 Intake Total 760 ml 1550.0 ml Output Total 750 ml 900 ml Balance 10 ml 650.0 ml Intake Free Water 180 ml 50 ml IV Total 100 ml 1010.0 ml Tube Feeding 480 ml 430 ml Other 60 ml Output Urine Total 750 ml 900 ml # Bowel Movements 4 Dressing: saturated Wound: other Drains: other Cardiovascular: RSR Respiratory: decreased breath sounds Abdomen: soft, present bowel sounds, non-distended Extremities: other Laboratory Tests Test 02/23/19 03:20 White Blood Count 10.5 K/UL (4.8-10.8) Red Blood Count 2.79 M/UL (4.70-6.10) L Hemoglobin 7.8 G/DL (14.2-18.0) L Hematocrit 25.2 % (42.0-52.0) L Mean Corpuscular Volume 90 FL (80-99) Mean Corpuscular Hemoglobin 28.1 PG (27.0-31.0) Mean Corpuscular Hemoglobin Concent 31.0 G/DL (32.0-36.0) L Red Cell Distribution Width 16.5 % (11.6-14.8) H Platelet Count 356 K/UL (150-450) Mean Platelet Volume 5.4 FL (6.5-10.1) L Neutrophils (%) (Auto) % (45.0-75.0) Lymphocytes (%) (Auto) % (20.0-45.0) Monocytes (%) (Auto) % (1.0-10.0) Eosinophils (%) (Auto) % (0.0-3.0) Basophils (%) (Auto) % (0.0-2.0) Sodium Level 148 MMOL/L (136-145) H Potassium Level 3.4 MMOL/L (3.5-5.1) L Chloride Level 113 MMOL/L (98-107) H Carbon Dioxide Level 29 MMOL/L (21-32) Anion Gap 6 mmol/L (5-15) Blood Urea Nitrogen 28 mg/dL (7-18) H Creatinine 0.7 MG/DL (0.55-1.30) Estimat Glomerular Filtration Rate mL/min (>60) Glucose Level 88 MG/DL (74-106) Calcium Level 8.9 MG/DL (8.5-10.1) Total Bilirubin 0.4 MG/DL (0.2-1.0) Aspartate Amino Transf (AST/SGOT) 30 U/L (15-37) Alanine Aminotransferase (ALT/SGPT) 11 U/L (12-78) L Alkaline Phosphatase 561 U/L (46-116) H Total Protein 6.7 G/DL (6.4-8.2) Albumin 0.9 G/DL (3.4-5.0) L Globulin 5.8 g/dL Albumin/Globulin Ratio 0.2 (1.0-2.7) L Plan Problems: (1) Leukocytosis Assessment & Plan: Sepsis with leukocytosis. Labs trending down. On IV antibiotics. Continue current treatment plan (2) Decubitus ulcer Assessment & Plan: Pt presented on admission with multiple pressure injuries. Resolving pressure injury L occipital. Dry pink epithelial noted. Skin assessed under trach collar and no areas of concerns noted . R and L ears dry . Full thickness pressure injury with undermining thoracic spine . Base of wound 75% granular with 25% fibrinous slough. Mild odor noted.(L)8.5cm x (W)6.5cmx(D) 1cm, undermining clockwise 6-1 by 3cm @12o'clock. Full thickness pressure injury L trochanter. 100% mixed necrosis/slough at base of wound and undermined borders.Non-blanchable erythema with induration noted periwound. Mild odor noted .(L)3.5cm x (W)4.5cm. Resolving DTPI L ischium .Centrally wound is red and fluctuant .Bone is palpable. Black with red tinged indurated borders noted. (L) (L)4.4cm x (W) 3.2cm. Ful thickness pressure injury R Iliac with 10% velazquez slough centrally.90% granular.Edges adherent and flat. (L)3cm x (W)3.2cm x(D)0.2cm. No odor or exudate noted.Darker skin tone without fluctuance noted periwound. Full thickness pressure injury with undermining R trochanter. Base of wound 60^ beefy red with 40% velazquez slough.erythejma noted along borders. Small amt seropurulent exudate that is mildly odorous.(L)5.5cm x (W)6.6cm x (D)1.5cm, undermining clockwise 12-12 by 4.5cm @3o'clock. Full thickness pressure injury R ischium (L)4.2cm x (W)5.5cm x(D)1.6cm, undermining 12-12 by 1.8cm @12o'clock .Base of wound 60% granular ,40% velazquez slough undermined borders.Wound has mild odor with small amt seropurulent exudate.darker skin tone that is indurated periwound. Resolving pressure injury sacrum . Base of wound dry with pink epithelial.with scattered shearing within base of wound. L heel boggy with non-blanchable erythema. DTPI R heel and Lateral aspect .Base of wound is maroon with fluctuance. (L) 4.5cm x (W)7.3cm. Tx.Plan. Cleanse wounds Thoracic and lumbar spine with Dakin's 0.125% segun. Pack with Dakin's moist gauze. Apply Moisture Barrier Paste periwound. Cover each wound with Optifoam drsg.Twice Daily and prn. Cleanse wound L trochanter and L ischium with Dakin's 0.125% segun. Pack with Dakin's moist Gauze.Apply Moisture Barrier paste periwound. Cover with Optifoam drsg. Twice daily and prn. Cleanse wounds R iliac ,R trochanter,R ischium with Dakin's 0.125% segun. Pack with Dakin's moist gauze. Apply Moisture Barrier Paste periwound. Cover with Optifoam drsg Twice daily and prn. Apply Moisture Barrier paste to sacrum. Cover with Optifoam drsg. Change every 3 days and prn. Apply Cavilon Skin Barrier to Both heels. Cover each heel with Optifoam drsg. Change every 7 days and prn. Air Fluidized Mattress. Reposition at least every 2hours or as tolerated. Off-load heels with pillow. (3) Sepsis Assessment & Plan: Continue with IV antibiotics as per infectious disease. Awaiting blood cultures. Trend labs Thank you (4) Anemia (5) Dementia (6) Dyspnea (7) Respiratory distress (8) Hyperlipidemia (9) Aspiration pneumonia (10) Aspiration pneumonia (11) Vitamin B 12 deficiency (12) Encephalopathy (13) Pneumonia (14) Status epilepticus (15) HTN (hypertension) (16) Encephalopathy acute (17) BPH (benign prostatic hyperplasia) (18) Abnormal LFTs (19) UTI (urinary tract infection), bacterial (20) Probable sepsis (21) Toxic metabolic encephalopathy (2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 (23) Zev Mchugh Feb 23, 2019 13:34
--- NOTE | 2019-02-23 13:47 | NUR ---
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 97.0 HR 65 RR 25 B/P 110/52 AC 12 TV 500 FIO2 40% PEEP 5 H/H 7.8/25.2 NA 148 K 3.4 ALK PHOS 561 IS: AMIKACIN IV BACTRIM DS GT IVF NS @ 100ML/HR JULIA RODARTE STEP DOWN STATUS
[2019-02-23 15:58] VITALS: BP 107/61
--- NOTE | 2019-02-23 16:15 | Progress Note ---
DATE: 02/23/2019 CARDIOLOGY PROGRESS NOTE SUBJECTIVE: The patient is at baseline unresponsive state. Continues on hypotonic IV fluids. Full ventilator support. No fevers noted. OBJECTIVE: VITAL SIGNS: Blood pressure 125/62, heart rate 65, and respirations 20. Afebrile. Monitored rhythm, sinus. LUNGS: Coarse breath sounds. Scattered rhonchi. Thin trach secretions. HEART: Regular rhythm and rate. Normal S1, S2 with a fourth heart sound. ABDOMEN: Soft. G-tube intact. EXTREMITIES: Trace dependent edema. Contractures noted. Muscle atrophy. LABORATORY DATA: White count 10.5 and hemoglobin 7.8. Sodium 148, potassium 3.4, bicarbonate 29, chloride 113, BUN 28, and creatinine 0.7. Albumin 0.9. Glucose 88. IMPRESSION: 1. Healthcare-acquired pneumonia. 2. Ventilator-dependent respiratory failure. 3. Multifactorial anemia. 4. Hypokalemia. 5. Dehydration and hypernatremia. 6. Hypovolemia. 7. Sepsis. 8. Chronic diastolic congestive heart failure. 9. History of hyperlipidemia. 10. History of pulmonary tuberculosis. 11. Severe protein-calorie malnutrition. PLAN OF CARE: 1. Antimicrobials per Infectious Disease. 2. Ventilator support, long-term. 3. Recheck laboratory studies including lipid panel. 4. Reassess statin therapy. 5. Repeat chest x-ray. 6. No plan for diuresis presently. 7. Continue hypotonic IV fluids. 8. Consider transfusion for further drop in hemoglobin. 9. Replace potassium. 10. Check magnesium. 11. DVT prophylaxis. 12. Nutritional support and protein supplement by G-tube. Jones Arauz M.D. DR: ERICA JOB#: [id number] CC:
--- NOTE | 2019-02-23 16:15 | Progress Note ---
DATE: 02/22/2019 CARDIOLOGY PROGRESS NOTE Late entry. SUBJECTIVE: The patient remains on full ventilator support via trach. Secretions are moderate. He remains noncommunicative. He continues on hypotonic IV fluids and antimicrobials. OBJECTIVE: VITAL SIGNS: Blood pressure 111/59, pulse 78, and respirations 20. LUNGS: Bilateral breath sounds with rhonchi. HEART: Regular rhythm and rate. Normal S1, S2 with a fourth heart sound. ABDOMEN: Soft and nontender with G-tube intact. EXTREMITIES: With contractures. No edema. Skin site is dry and has dressing in place and was revaluated by surgeon. LABORATORY DATA: Sodium 150, potassium 3.8, chloride 116, bicarb 26, BUN 36, and creatinine 0.8. Albumin 0.9. White count is 11.3. Hemoglobin 8.4. IMPRESSION: 1. Healthcare-acquired pneumonia. 2. Chronic diastolic congestive heart failure. 3. Paroxysmal atrial arrhythmias. 4. Anemia, multifactorial frequently requiring transfusions. 5. Dehydration and hypernatremia, improved. 6. Acute on chronic renal failure due to hypovolemia, improved. 7. Severe protein-calorie malnutrition. PLAN: 1. Continue hypotonic IV fluids. 2. No diuretics. 3. Antimicrobials. 4. Ventilator support. 5. Respiratory hygiene. 6. DVT prophylaxis. 7. Nutrition by feeding tube. 8. Reassess continued use of statin therapy in this clinical setting. Jones Arauz M.D. DR: ERICA JOB#: [id number] CC:
--- NOTE | 2019-02-23 17:35 | General Progress Note ---
Assessment/Plan Problem List: (1) Decubitus ulcer ICD Codes: L89.90 - Pressure ulcer of unspecified site, unspecified stage SNOMED: 884845058 (2) Anemia ICD Codes: D64.9 - Anemia, unspecified SNOMED: 492231502 (3) Sepsis ICD Codes: A41.9 - Sepsis, unspecified organism SNOMED: 12433809 (4) HTN (hypertension) ICD Codes: I10 - Essential (primary) hypertension SNOMED: 45832747 (5) Encephalopathy acute ICD Codes: G93.40 - Encephalopathy, unspecified SNOMED: 61456062, 739835297 (6) BPH (benign prostatic hyperplasia) ICD Codes: N40.0 - Benign prostatic hyperplasia without lower urinary tract symptoms SNOMED: 008653963, 491562519 (7) UTI (urinary tract infection), bacterial ICD Codes: N39.0 - Urinary tract infection, site not specified; A49.9 - Bacterial infection, unspecified SNOMED: 045969328 Status: stable, progressing Assessment/Plan: iv abx follow up cultures id called vent support resp rx suctioning as needed tube feeds wound care monitor h/h - trending down transfuse as needed sz rx poor prognosis Subjective ROS Limited/Unobtainable: Yes Constitutional: Reports: no symptoms HEENT: Reports: no symptoms Cardiovascular: Reports: no symptoms Respiratory: Reports: shortness of breath, sputum Gastrointestinal/Abdominal: Reports: difficulty swallowing Genitourinary: Reports: no symptoms Neurologic/Psychiatric: Reports: pre-existing deficit, seizure Endocrine: Reports: no symptoms Hematologic/Lymphatic: Reports: anemia Allergies: Coded Allergies: No Known Allergies (Unverified , 01/27/17) All Systems: reviewed and negative except above Subjective no events. stable on the vent. no bleeding noted. on iv abx. culture noted. labs improving. remains poorly responsive no szs Objective Last 24 Hour Vital Signs Date Time Temp Pulse Resp B/P (MAP) Pulse Ox O2 Delivery O2 Flow Rate FiO2 02/23/19 17:29 71 25 40 02/23/19 16:00 40 02/23/19 16:00 67 02/23/19 16:00 Mechanical Ventilator 02/23/19 15:58 98.2 66 24 107/61 (76) 99 02/23/19 14:50 78 22 99 Mechanical Ventilator 40 02/23/19 14:48 68 34 40 02/23/19 12:58 61 29 40 02/23/19 12:00 61 02/23/19 12:00 40 02/23/19 12:00 Mechanical Ventilator 02/23/19 12:00 97.0 65 25 110/52 (71) 100 02/23/19 10:39 60 20 40 02/23/19 09:10 59 21 40 02/23/19 08:28 65 125/62 02/23/19 08:27 65 125/62 02/23/19 08:00 40 02/23/19 08:00 97.7 62 20 125/62 (83) 100 02/23/19 08:00 65 02/23/19 08:00 Mechanical Ventilator 02/23/19 06:59 68 22 40 02/23/19 05:12 75 18 40 02/23/19 04:00 40 02/23/19 04:00 Mechanical Ventilator 02/23/19 04:00 97.9 67 28 118/55 (76) 97 02/23/19 03:49 62 02/23/19 03:11 61 21 40 02/23/19 00:45 64 22 40 02/23/19 00:00 97.7 64 26 106/54 (71) 99 02/23/19 00:00 Mechanical Ventilator 02/22/19 23:25 63 02/22/19 22:53 59 20 40 02/22/19 21:04 60 24 40 02/22/19 20:31 65 116/59 02/22/19 20:00 40 02/22/19 20:00 Mechanical Ventilator 02/22/19 20:00 97.7 66 20 121/58 (79) 100 02/22/19 19:27 67 20 40 02/22/19 19:24 65 Intake and Output 02/22/19 02/23/19 18:59 06:59 Intake Total 660 ml 1660.0 ml Output Total 750 ml 900 ml Balance -90 ml 760.0 ml Intake Free Water 180 ml 50 ml IV Total 1110.0 ml Tube Feeding 480 ml 440 ml Other 60 ml Output Urine Total 750 ml 900 ml # Bowel Movements 4 Laboratory Tests 02/23/19 03:20: White Blood Count 10.5, Red Blood Count 2.79L, Hemoglobin 7.8L, Hematocrit 25.2L , Mean Corpuscular Volume 90, Mean Corpuscular Hemoglobin 28.1, Mean Corpuscular Hemoglobin Concent 31.0L, Red Cell Distribution Width 16.5H, Platelet Count 356, Mean Platelet Volume 5.4L, Neutrophils (%) (Auto) , Lymphocytes (%) (Auto) , Monocytes (%) (Auto) , Eosinophils (%) (Auto) , Basophils (%) (Auto) , Sodium Level 148H, Potassium Level 3.4L, Chloride Level 113H, Carbon Dioxide Level 29, Anion Gap 6, Blood Urea Nitrogen 28H, Creatinine 0.7, Estimat Glomerular Filtration Rate , Glucose Level 88, Calcium Level 8.9, Total Bilirubin 0.4, Aspartate Amino Transf (AST/SGOT) 30, Alanine Aminotransferase (ALT/SGPT) 11L, Alkaline Phosphatase 561H, Total Protein 6.7, Albumin 0.9L, Globulin 5.8, Albumin/Globulin Ratio 0.2L Height (Feet): 6 Height (Inches): 0.00 Weight (Pounds): 130 Objective General Appearance: WD/WN, confused, cachetic Neck: non-tender, supple Cardiovascular: normal peripheral pulses, normal rate, regular rhythm Respiratory/Chest: chest wall non-tender, lungs clear, normal breath sounds Edema: no edema noted Arm (L), no edema noted Arm (R), no edema noted Leg (L), no edema noted Leg (R), no edema noted Pedal (L), no edema noted Pedal (R), no edema noted Generalized Jarrod Vásquez MD Feb 23, 2019 17:35
--- NOTE | 2019-02-23 19:00 | Consultation ---
DATE OF CONSULTATION: 02/21/2019 CARDIOLOGY CONSULTATION CONSULTING PHYSICIAN: Jones Arauz M.D. REFERRING PHYSICIAN: Jarrod Vásquez M.D. REASON FOR CONSULTATION: Evaluation for congestive heart failure. HISTORY OF PRESENT ILLNESS: This is a 73-year-old male with encephalopathy and chronic respiratory failure on ventilator support. He was admitted to the hospital several days ago due to sepsis. I have been asked to assist with cardiovascular care addressing the possibility of congestive heart failure. The patient is unable to give any historical data. Records are reviewed as well as current hospital course. PAST MEDICAL HISTORY: Notable for ventilator-dependent respiratory failure, history of pulmonary tuberculosis status post therapy, anemia multifactorial, cerebrovascular disease with dementia, encephalopathy, hyperlipidemia dysphagia with G-tube, B12 deficiency, seizure disorder, hypertensive heart disease, prostatic hypertrophy, history of positive RPR, paroxysmal atrial fibrillation, paroxysmal sinus tachycardia, and degenerative valve disease. MEDICATIONS: Prior to admission, I have reviewed and reconciled. Current MAR reviewed. ALLERGIES: None known. SOCIAL HISTORY: No known history of alcohol, tobacco or substance abuse. Presently residing at a subacute nursing facility. REVIEW OF SYSTEMS: Otherwise unobtainable. PHYSICAL EXAMINATION: GENERAL: Ill-appearing male, in no acute respiratory distress. Presently on full ventilator support and noncommunicative. VITAL SIGNS: Blood pressure 125/53, pulse 67, and respirations 24. Afebrile. HEENT: Temporal wasting. Mucous membranes dry. NECK: Thin trach secretions. LUNGS: Bilateral rhonchi. HEART: Regular rhythm and rate. Normal S1, S2 with a fourth heart sound. ABDOMEN: Soft with G-tube. EXTREMITIES: With contractures and no edema. SKIN: Reveals decubitus on the back with full evaluation per surgical note. LABORATORY DATA: Cultures are reviewed. Sodium 153, potassium 3.6, bicarb 33, chloride 115, BUN 43, and creatinine 0.8. Glucose 86. Albumin 1.0. White count is 11.9, hemoglobin 8.9. Urinalysis on admission 30 to 40 white cells. Chest x-ray on admission was notable for bilateral infiltrates and possible edema. IMPRESSION: 1. Healthcare-acquired pneumonia. 2. Ventilator-dependent respiratory failure. 3. Dehydration. 4. Hypernatremia. 5. Hyperchloremia. 6. Prerenal azotemia. 7. Hypovolemia. 8. Acute on chronic kidney injury. 9. Decubitus. 10. Chronic encephalopathy. 11. Chronic diastolic congestive heart failure. 12. Paroxysmal atrial arrhythmias. PLAN: 1. Hypotonic IV fluid hydration. 2. Nutritional support by feeding tube. 3. Antimicrobials and respiratory hygiene. 4. Ventilator support. 5. No diuretics at this time. Reassess. 6. Continue statin therapy. 7. DVT prophylaxis. Jones Arauz M.D. DR: OLEG JOB#: [id number] CC:
--- NOTE | 2019-02-23 19:13 | NUR ---
HAND-OFF: Report given to LALA Leggett. Pt in stable condition.
--- NOTE | 2019-02-23 19:14 | NUR ---
NURSE NOTES: Received bedside report from LALA Lopez.Patient stable,obtunded,SR on front desk monitor,no s/s of pain,no respiratory distress noted,trach Portex 7 AC 12 TV 500 FiO2 40% PEEP 5 tolerated setting well,GT order with Osmolite 1.5@ 40 ml/hr,tolerated well no residual,BS active in all quadrants,IV asymptomatic intact on BASIL running with 1/2 NS @100ml/hr,patient clean and dry,bed secured in a low safety position,call light within a reach,will continue to monitor and follow POC
[2019-02-23 20:00] VITALS: BP 138/74
[2019-02-23] MEDS: Doxazosin 1mg Tab GT SCH (20:42)
--- NOTE | 2019-02-23 20:49 | Cardiology Report ---
APPROVED REPORT EKG Measurement Heart [id number] Normal sinus rhythm Septal infarct, age undetermined Abnormal ECG
[2019-02-23 23:48] LABS: ALANINE AMINOTRANSFERASE 15 U/L (12-78); ALBUMIN/GLOBULIN RATIO 0.2 (1.0-2.7); ALKALINE PHOSPHATASE 580 U/L (46-116); ANION GAP 2 mmol/L (5-15); ASPARTATE AMINO TRANSFERASE 30 U/L (15-37); BILIRUBIN,TOTAL 0.4 MG/DL (0.2-1.0); BLOOD UREA NITROGEN 25 mg/dL (7-18); CALCIUM 8.8 MG/DL (8.5-10.1); CARBON DIOXIDE 28 MMOL/L (21-32); CHLORIDE 111 MMOL/L (98-107); CREATININE 0.6 MG/DL (0.55-1.30); POTASSIUM 3.9 MMOL/L (3.5-5.1); SODIUM 141 MMOL/L (136-145)
[2019-02-23 23:50] LABS: CHOLESTEROL 76 MG/DL (< 200); HDL CHOLESTEROL 26 MG/DL (40-60); TRIGLYCERIDES 57 MG/DL (30-150)
[2019-02-24] VITALS: BP 113/63
--- NOTE | 2019-02-24 02:06 | NUR ---
HAND-OFF: Report given to LALA Schmidt.Patient stable,has no s/s of pain,no respiratory distress.
[2019-02-24 04:00] VITALS: BP 117/59
--- NOTE | 2019-02-24 07:30 | NUR ---
NURSE NOTES: Received pt from LALA Schmidt in stable condition with no cardiopulmonary distress noted. Pt is obtunded, trache to vent Portex 7 AC 12 TV 500 FiO2 40% Peep 5. GT noted running osmolite 1.5 at 40cc/hr. F/C noted draining yellow urine. Skin alterations noted. Pt has a BASIL 20g IV. Bed is in lowest position with alarm on, side rails up x 2 and padded per seizure precaution, call light within reach, will continue to monitor pt.
--- NOTE | 2019-02-24 07:52 | NUR ---
RADIOLOGY DEPT., CHEST X-RAY DONE.-P.DYE
[2019-02-24 08:00] VITALS: BP 128/64
[2019-02-24] MEDS: Bactrim-DS 1 tab ORAL SCH (08:20)
[2019-02-24] MEDS: Metoprolol Tartrate 50mg tab GT SCH ×2 (08:20→20:53)
[2019-02-24] MEDS: Aspirin Baby 81mg GT SCH (08:21)
[2019-02-24] MEDS: levETIRAcetam 500mg/5ml Liquid GT SCH ×2 (08:21→20:53)
[2019-02-24] MEDS: Dakin's 0.125% Soln (Quarter Strength) 16oz TOPIC SCH (08:23)
--- NOTE | 2019-02-24 08:29 | Pulmonology Progress Note ---
Assessment/Plan Assessment/Plan ASSESSMENT: toxic metabolic encephalopathy, history of stroke, chronic respiratory failure, hypernatremia, acute on chronic renal failure, chronic encephalopathy, seizure disorder, pulmonary tuberculosis, and anemia possible sepsis, leukocytosis, possible gib, leukocytosis, possible sepsis, polymicrobial infection PLAN care noted cultures noted antibiotics noted nontoxic; wbc normal respiratory care as is Ventilatory support- no wean and maintain AC SNF meds supportive care as is suction as needed off load oxygen therapy noted consider transfusion prior to dc consider epogen feeds as able prognosis poor ID follow up and recommendations impression, plan, and exam edited and reviewed in detail care discussed with RN Subjective ROS Limited/Unobtainable: Yes Allergies: Coded Allergies: No Known Allergies (Unverified , 01/27/17) Subjective care noted and reviewed poor prognosis labs and MD notes reviewed poor LOC Objective Last 24 Hour Vital Signs Date Time Temp Pulse Resp B/P (MAP) Pulse Ox O2 Delivery O2 Flow Rate FiO2 02/24/19 08:20 75 128/64 02/24/19 08:20 75 128/64 02/24/19 08:00 97.9 75 20 128/64 (85) 100 02/24/19 08:00 Mechanical Ventilator 02/24/19 08:00 40 02/24/19 07:30 78 31 40 02/24/19 04:43 63 24 40 02/24/19 04:00 98.4 60 24 117/59 (78) 100 02/24/19 03:58 40 02/24/19 03:56 Mechanical Ventilator 02/24/19 03:29 64 02/24/19 03:26 63 25 40 02/24/19 01:33 57 23 40 02/24/19 00:00 99.2 63 22 113/63 (80) 100 02/24/19 00:00 Mechanical Ventilator 02/23/19 23:35 63 02/23/19 23:23 63 24 40 02/23/19 21:24 63 26 40 02/23/19 21:11 99.1 02/23/19 20:43 89 138/77 02/23/19 20:00 40 02/23/19 20:00 99.8 77 28 138/74 (95) 98 02/23/19 20:00 Mechanical Ventilator 02/23/19 19:58 70 02/23/19 19:01 71 26 40 02/23/19 17:29 71 25 40 02/23/19 16:00 40 02/23/19 16:00 67 02/23/19 16:00 Mechanical Ventilator 02/23/19 15:58 98.2 66 24 107/61 (76) 99 02/23/19 14:50 78 22 99 Mechanical Ventilator 40 02/23/19 14:48 68 34 40 02/23/19 12:58 61 29 40 02/23/19 12:00 61 02/23/19 12:00 40 02/23/19 12:00 Mechanical Ventilator 02/23/19 12:00 97.0 65 25 110/52 (71) 100 02/23/19 10:39 60 20 40 02/23/19 09:10 59 21 40 Intake and Output 02/23/19 02/24/19 19:00 07:00 Intake Total 2293.6 ml 1500 ml Output Total 800 ml Balance 1493.6 ml 1500 ml Intake Free Water 500 ml 300 ml IV Total 1313.6 ml 840 ml Tube Feeding 480 ml 360 ml Output Urine Total 800 ml # Bowel Movements 2 1 Objective WDWN chronically ill trach in place coarse breath sounds bilaterally without rhonchi or wheeze [id number] without MRG NABS nontender no HSM; Gt no CC; contractures nonfocal poor LOC wounds noted reviewed and edited; overall same Laboratory Tests 02/23/19 23:07: Sodium Level 141, Potassium Level 3.9, Chloride Level 111H, Carbon Dioxide Level 28, Anion Gap 2L, Blood Urea Nitrogen 25H, Creatinine 0.6, Estimat Glomerular Filtration Rate , Glucose Level 95, Calcium Level 8.8, Magnesium Level 1.7L, Total Bilirubin 0.4, Aspartate Amino Transf (AST/SGOT) 30, Alanine Aminotransferase (ALT/SGPT) 15, Alkaline Phosphatase 580H, Pro-B-Type Natriuretic Peptide 4376H, Total Protein 7.1, Albumin 1.0L, Globulin 6.1, Albumin/Globulin Ratio 0.2L, Triglycerides Level 57, Cholesterol Level 76, LDL Cholesterol 43, HDL Cholesterol 26L, Cholesterol/HDL Ratio 2.9L, Thyroid Stimulating Hormone (TSH) 2.727, Random Amikacin Level 14.4 Current Medications Medications (Trade) Dose Ordered Sig/Iram Route PRN Reason Start Time Stop Time Status Last Admin Dose Admin Acetaminophen (Tylenol) 650 mg Q4H PRN ORAL Mild Pain/Temp > 100.5 02/18/19 19:45 03/20/19 19:44 02/23/19 20:41 Acetaminophen/ Hydrocodone Bitart ([place] 5/325) 1 tab Q8H PRN GT For Pain 02/18/19 19:45 02/25/19 19:44 Albuterol/ Ipratropium (Albuterol/ Ipratropium) 3 ml Q4H PRN HHN Shortness of Breath 02/22/19 17:00 03/02/19 16:59 Amikacin Protocol (Amikacin pharmacy to dose) 1 ea DAILY PRN MISC Per rx protocol 02/23/19 08:30 03/25/19 08:29 Amikacin Sulfate 900 mg/Sodium Chloride 113.6 ml @ 113.6 mls/ hr Q36H IV 02/23/19 11:00 03/02/19 10:59 02/23/19 10:54 Amlodipine Besylate (Norvasc) 10 mg DAILY GT 02/19/19 09:00 03/21/19 08:59 02/24/19 08:20 Artificial Tears (Akwa-Tears) 2 drop Q2H PRN BOTH EYES DRY EYES 02/18/19 19:45 03/20/19 19:44 Aspirin (ASA) 81 mg DAILY GT 02/19/19 09:00 03/21/19 08:59 02/24/19 08:21 Atorvastatin Calcium (Lipitor) 10 mg BEDTIME GT 02/18/19 21:00 03/20/19 20:59 02/23/19 20:42 Doxazosin Mesylate (Cardura) 1 mg QHS GT 02/18/19 21:00 03/20/19 20:59 02/23/19 20:42 Lansoprazole (Prevacid) 30 mg Q12HR GT 02/18/19 21:00 03/20/19 20:59 02/24/19 08:21 Levetiracetam (Keppra) 750 mg Q12HR GT 02/18/19 21:00 03/20/19 20:59 02/24/19 08:21 Lorazepam (Ativan 2mg/ml 1ml) 1 mg Q4H PRN IV For Seizures 02/23/19 10:00 03/02/19 09:59 Magnesium Sulfate 100 ml @ 100 mls/hr Q1H IVPB 02/24/19 09:00 02/24/19 10:59 Metoprolol Tartrate (Lopressor) 50 mg EVERY 12 HOURS GT 02/18/19 21:00 03/20/19 20:59 02/24/19 08:20 Multivitamins (Multivitamins) 1 tab DAILY GT 02/19/19 09:00 03/21/19 08:59 02/24/19 08:20 Sodium Hypochlorite (Dakin's Quarter Strength) 1 applic DAILY TOPIC 02/19/19 10:00 03/21/19 09:59 02/24/19 08:23 Sodium Chloride 1,000 ml @ 100 mls/hr Q10H IV 02/18/19 19:45 03/20/19 19:44 02/24/19 06:37 Trimethoprim/ Sulfamethoxazole (Bactrim-DS) 1 tab Q12HR ORAL 02/23/19 09:00 03/02/19 08:59 02/24/19 08:20 Nakul Cisse MD Feb 24, 2019 08:29
--- NOTE | 2019-02-24 08:43 | Diagnostic Imaging Report ---
Indication: Dyspnea Technique: One view of the chest Comparison: 02/18/2019 Findings: Extensive bilateral interstitial and airspace disease persists, probably unchanged allowing for differences in rotation and exposure. There is evidence of increased pleural fluid bilaterally. Impression: Stable bilateral diffuse interstitial and airspace disease Increased bilateral pleural fluid, since prior study of 02/18/2019
--- NOTE | 2019-02-24 10:22 | NUR ---
[employer] SI: RESP FAILURE TRACH/VENT DEPENDENT, SEPSIS T. 97.9 HR 75 RR 31 B/P 128/64 AC 12 TV 500 FIO2 40% PEEP 5 CXR= STABLE BILATERAL DIFFUSE INFILTRATES IS: MAGNESIUM IV AMIKACIN IV IVF NS @ 100ML/HR STEP DOWN STATUS
[2019-02-24 12:00] VITALS: BP 102/51
--- NOTE | 2019-02-24 13:41 | Surgery Progress Note ---
Surgery Progress Note Subjective Additional Comments no acute events exam unchanged Objective Last 24 Hour Vital Signs Date Time Temp Pulse Resp B/P (MAP) Pulse Ox O2 Delivery O2 Flow Rate FiO2 02/24/19 13:18 71 24 40 02/24/19 12:00 Mechanical Ventilator 02/24/19 12:00 40 02/24/19 12:00 97.9 62 26 102/51 (68) 100 02/24/19 12:00 62 02/24/19 11:27 63 24 40 02/24/19 09:30 86 24 40 02/24/19 08:20 75 128/64 02/24/19 08:20 75 128/64 02/24/19 08:00 97.9 75 20 128/64 (85) 100 02/24/19 08:00 Mechanical Ventilator 02/24/19 08:00 40 02/24/19 07:50 70 02/24/19 07:30 78 31 40 02/24/19 04:43 63 24 40 02/24/19 04:00 98.4 60 24 117/59 (78) 100 02/24/19 03:58 40 02/24/19 03:56 Mechanical Ventilator 02/24/19 03:29 64 02/24/19 03:26 63 25 40 02/24/19 01:33 57 23 40 02/24/19 00:00 99.2 63 22 113/63 (80) 100 02/24/19 00:00 Mechanical Ventilator 02/23/19 23:35 63 02/23/19 23:23 63 24 40 02/23/19 21:24 63 26 40 02/23/19 21:11 99.1 02/23/19 20:43 89 138/77 02/23/19 20:00 40 02/23/19 20:00 99.8 77 28 138/74 (95) 98 02/23/19 20:00 Mechanical Ventilator 02/23/19 19:58 70 02/23/19 19:01 71 26 40 02/23/19 17:29 71 25 40 02/23/19 16:00 40 02/23/19 16:00 67 02/23/19 16:00 Mechanical Ventilator 02/23/19 15:58 98.2 66 24 107/61 (76) 99 02/23/19 14:50 78 22 99 Mechanical Ventilator 40 02/23/19 14:48 68 34 40 I&O Intake and Output 02/23/19 02/24/19 19:00 07:00 Intake Total 2293.6 ml 1500 ml Output Total 800 ml Balance 1493.6 ml 1500 ml Intake Free Water 500 ml 300 ml IV Total 1313.6 ml 840 ml Tube Feeding 480 ml 360 ml Output Urine Total 800 ml # Bowel Movements 2 1 Dressing: dry Wound: other Drains: other Cardiovascular: RSR Respiratory: decreased breath sounds Abdomen: soft, present bowel sounds, other, non-distended Extremities: other Laboratory Tests Test 02/23/19 23:07 Sodium Level 141 MMOL/L (136-145) Potassium Level 3.9 MMOL/L (3.5-5.1) Chloride Level 111 MMOL/L (98-107) H Carbon Dioxide Level 28 MMOL/L (21-32) Anion Gap 2 mmol/L (5-15) L Blood Urea Nitrogen 25 mg/dL (7-18) H Creatinine 0.6 MG/DL (0.55-1.30) Estimat Glomerular Filtration Rate mL/min (>60) Glucose Level 95 MG/DL (74-106) Calcium Level 8.8 MG/DL (8.5-10.1) Magnesium Level 1.7 MG/DL (1.8-2.4) L Total Bilirubin 0.4 MG/DL (0.2-1.0) Aspartate Amino Transf (AST/SGOT) 30 U/L (15-37) Alanine Aminotransferase (ALT/SGPT) 15 U/L (12-78) Alkaline Phosphatase 580 U/L (46-116) H Pro-B-Type Natriuretic Peptide 4376 pg/mL (0-125) H Total Protein 7.1 G/DL (6.4-8.2) Albumin 1.0 G/DL (3.4-5.0) L Globulin 6.1 g/dL Albumin/Globulin Ratio 0.2 (1.0-2.7) L Triglycerides Level 57 MG/DL (30-150) Cholesterol Level 76 MG/DL (< 200) LDL Cholesterol 43 mg/dL (<100) HDL Cholesterol 26 MG/DL (40-60) L Cholesterol/HDL Ratio 2.9 (3.3-4.4) L Thyroid Stimulating Hormone (TSH) 2.727 uiU/mL (0.358-3.740) Random Amikacin Level 14.4 ug/mL Plan Problems: (1) Leukocytosis Assessment & Plan: Sepsis with leukocytosis. Labs trending down. On IV antibiotics. Continue current treatment plan (2) Decubitus ulcer Assessment & Plan: Pt presented on admission with multiple pressure injuries. Resolving pressure injury L occipital. Dry pink epithelial noted. Skin assessed under trach collar and no areas of concerns noted . R and L ears dry . Full thickness pressure injury with undermining thoracic spine . Base of wound 75% granular with 25% fibrinous slough. Mild odor noted.(L)8.5cm x (W)6.5cmx(D) 1cm, undermining clockwise 6-1 by 3cm @12o'clock. Full thickness pressure injury L trochanter. 100% mixed necrosis/slough at base of wound and undermined borders.Non-blanchable erythema with induration noted periwound. Mild odor noted .(L)3.5cm x (W)4.5cm. Resolving DTPI L ischium .Centrally wound is red and fluctuant .Bone is palpable. Black with red tinged indurated borders noted. (L) (L)4.4cm x (W) 3.2cm. Ful thickness pressure injury R Iliac with 10% velazquez slough centrally.90% granular.Edges adherent and flat. (L)3cm x (W)3.2cm x(D)0.2cm. No odor or exudate noted.Darker skin tone without fluctuance noted periwound. Full thickness pressure injury with undermining R trochanter. Base of wound 60^ beefy red with 40% velazquez slough.erythejma noted along borders. Small amt seropurulent exudate that is mildly odorous.(L)5.5cm x (W)6.6cm x (D)1.5cm, undermining clockwise 12-12 by 4.5cm @3o'clock. Full thickness pressure injury R ischium (L)4.2cm x (W)5.5cm x(D)1.6cm, undermining 12-12 by 1.8cm @12o'clock .Base of wound 60% granular ,40% velazquez slough undermined borders.Wound has mild odor with small amt seropurulent exudate.darker skin tone that is indurated periwound. Resolving pressure injury sacrum . Base of wound dry with pink epithelial.with scattered shearing within base of wound. L heel boggy with non-blanchable erythema. DTPI R heel and Lateral aspect .Base of wound is maroon with fluctuance. (L) 4.5cm x (W)7.3cm. Tx.Plan. Cleanse wounds Thoracic and lumbar spine with Dakin's 0.125% segun. Pack with Dakin's moist gauze. Apply Moisture Barrier Paste periwound. Cover each wound with Optifoam drsg.Twice Daily and prn. Cleanse wound L trochanter and L ischium with Dakin's 0.125% segun. Pack with Dakin's moist Gauze.Apply Moisture Barrier paste periwound. Cover with Optifoam drsg. Twice daily and prn. Cleanse wounds R iliac ,R trochanter,R ischium with Dakin's 0.125% segun. Pack with Dakin's moist gauze. Apply Moisture Barrier Paste periwound. Cover with Optifoam drsg Twice daily and prn. Apply Moisture Barrier paste to sacrum. Cover with Optifoam drsg. Change every 3 days and prn. Apply Cavilon Skin Barrier to Both heels. Cover each heel with Optifoam drsg. Change every 7 days and prn. Air Fluidized Mattress. Reposition at least every 2hours or as tolerated. Off-load heels with pillow. (3) Sepsis Assessment & Plan: Continue with IV antibiotics as per infectious disease. Awaiting blood cultures. Trend labs Thank you (4) Anemia (5) Dementia (6) Dyspnea (7) Respiratory distress (8) Hyperlipidemia (9) Aspiration pneumonia (10) Aspiration pneumonia (11) Vitamin B 12 deficiency (12) Encephalopathy (13) Pneumonia (14) Status epilepticus (15) HTN (hypertension) (16) Encephalopathy acute (17) BPH (benign prostatic hyperplasia) (18) Abnormal LFTs (19) UTI (urinary tract infection), bacterial (20) Probable sepsis (21) Toxic metabolic encephalopathy (2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 (23) Zev Mchugh Feb 24, 2019 13:41
[2019-02-24 16:00] VITALS: BP 107/59
--- NOTE | 2019-02-24 16:00 | Consultation ---
DATE OF CONSULTATION: 02/24/2019 INFECTIOUS DISEASE CONSULTATION CONSULTING PHYSICIAN: Sergio Urban M.D. REFERRING PHYSICIAN: Jarrod Vásquez M.D. REASON FOR CONSULTATION: Pneumonia. HISTORY OF PRESENT ILLNESS: This is a 73-year-old gentleman with history of encephalopathy, stroke, seizure disorder, chronic respiratory failure, status post tracheostomy, and pulmonary tuberculosis, status post treatment, who comes in because of abnormal labs. He had a white count of 22,000 with elevated sodium of 155 and BUN of 100. He was found to have urinary tract infection, and an Infectious Disease consultation has been obtained for antibiotics. PAST MEDICAL HISTORY: 1. History of encephalopathy. 2. Stroke. 3. Seizure disorder. 4. Chronic respiratory failure, status post tracheostomy. 5. Multiple wound infection. 6. Pulmonary tuberculosis, status post treatment. 7. Status post G-tube placement. SOCIAL HISTORY: No history of smoking, alcohol, or drug use. FAMILY HISTORY: Unknown. REVIEW OF SYSTEMS: Unable to obtain currently. MEDICATIONS: As an inpatient, he is on IV amikacin, Ativan, Bactrim, albuterol and ipratropium, amlodipine, aspirin, multivitamin, atorvastatin, doxazosin, lansoprazole, Keppra, metoprolol, Artificial Tears, [place], and Tylenol. ALLERGIES: No known drug allergies. PHYSICAL EXAMINATION: VITAL SIGNS: Temperature 97.9, T-max of 99.8, pulse 86, respiratory rate 24, and blood pressure 128/64. O2 saturation 100%. HEENT: Pupils are equally reactive to light and accommodation. Mouth appears clean without thrush. NECK: Supple. No adenopathy. No JVD. Tracheostomy site appears clean. CARDIOVASCULAR: Regular rate and rhythm. No murmurs. LUNGS: Clear to auscultation bilaterally. No crackles. No wheezes. ABDOMEN: Soft and nontender. G-tube site appears clean. EXTREMITIES: No cyanosis. No clubbing. Edema noted bilaterally. SKIN: Bilateral sacral decubitus ulcers noted. LABORATORY AND DIAGNOSTIC DATA: White count 17.5 on 02/19/2019, white count 10.5 today, hemoglobin 7.8, hematocrit 25.2, MCV 90, and platelet count 356. Sodium 141, potassium 3.9, chloride 111, bicarb 28, BUN 25, and creatinine 0.6. Glucose 95. Calcium 8.8. Total bilirubin 0.4, AST 30, ALT 15, and alkaline phosphatase 580. Total protein 7.1, albumin 1. Cholesterol 76. UA showing 30 to 40 white cells. Wound culture is growing Proteus, MRSA, Klebsiella, and diphtheroids. Urine culture is growing Proteus, which is susceptible to imipenem, ertapenem, Pipracil and tazobactam. Chest x-ray showing stable bilateral diffuse interstitial and airspace disease, increased bilateral pleural fluid noted. Abdominal ultrasound showing no acute findings. ASSESSMENT: This is a 73-year-old gentleman with history of encephalopathy, stroke and seizures, who comes in and is found to have, 1. Proteus urinary tract infection. 2. Sacral decubitus ulcers. 3. Leukocytosis, resolved. 4. Respiratory failure, status post tracheostomy. PLAN: 1. Discontinue amikacin and Bactrim. 2. Observe off antibiotics. I would like to thank Dr. Vásquez for this consultation. Sergio Urban M.D. DR: GILDARDO JOB#: [id number] CC:
--- NOTE | 2019-02-24 18:27 | General Progress Note ---
Assessment/Plan Problem List: (1) Decubitus ulcer ICD Codes: L89.90 - Pressure ulcer of unspecified site, unspecified stage SNOMED: 632622796 (2) Anemia ICD Codes: D64.9 - Anemia, unspecified SNOMED: 943344479 (3) Sepsis ICD Codes: A41.9 - Sepsis, unspecified organism SNOMED: 01076605 (4) HTN (hypertension) ICD Codes: I10 - Essential (primary) hypertension SNOMED: 74181579 (5) Encephalopathy acute ICD Codes: G93.40 - Encephalopathy, unspecified SNOMED: 00444169, 580249567 (6) BPH (benign prostatic hyperplasia) ICD Codes: N40.0 - Benign prostatic hyperplasia without lower urinary tract symptoms SNOMED: 381455124, 026118799 (7) UTI (urinary tract infection), bacterial ICD Codes: N39.0 - Urinary tract infection, site not specified; A49.9 - Bacterial infection, unspecified SNOMED: 601646291 Status: stable, progressing Assessment/Plan: iv abx follow up cultures id appreciated mg replaced repeat labs in am vent support resp rx suctioning as needed tube feeds wound care monitor h/h - trending down transfuse as needed sz rx poor prognosis Subjective ROS Limited/Unobtainable: Yes Constitutional: Reports: no symptoms HEENT: Reports: no symptoms Cardiovascular: Reports: no symptoms Respiratory: Reports: shortness of breath Gastrointestinal/Abdominal: Reports: difficulty swallowing Genitourinary: Reports: no symptoms Neurologic/Psychiatric: Reports: pre-existing deficit, seizure Endocrine: Reports: no symptoms Hematologic/Lymphatic: Reports: anemia Allergies: Coded Allergies: No Known Allergies (Unverified , 01/27/17) All Systems: reviewed and negative except above Subjective no events. stable on the vent. no bleeding noted. on iv abx. culture noted. labs improving. remains poorly responsive no szs low mg noted Objective Last 24 Hour Vital Signs Date Time Temp Pulse Resp B/P (MAP) Pulse Ox O2 Delivery O2 Flow Rate FiO2 02/24/19 17:26 74 26 40 02/24/19 16:00 98.2 67 22 107/59 (75) 100 02/24/19 16:00 65 02/24/19 16:00 Mechanical Ventilator 02/24/19 16:00 40 02/24/19 15:04 76 24 40 02/24/19 13:18 71 24 40 02/24/19 12:00 Mechanical Ventilator 02/24/19 12:00 40 02/24/19 12:00 97.9 62 26 102/51 (68) 100 02/24/19 12:00 62 02/24/19 11:27 63 24 40 02/24/19 09:30 86 24 40 02/24/19 08:20 75 128/64 02/24/19 08:20 75 128/64 02/24/19 08:00 97.9 75 20 128/64 (85) 100 02/24/19 08:00 Mechanical Ventilator 02/24/19 08:00 40 02/24/19 07:50 70 02/24/19 07:30 78 31 40 02/24/19 04:43 63 24 40 02/24/19 04:00 98.4 60 24 117/59 (78) 100 02/24/19 03:58 40 02/24/19 03:56 Mechanical Ventilator 02/24/19 03:29 64 02/24/19 03:26 63 25 40 02/24/19 01:33 57 23 40 02/24/19 00:00 99.2 63 22 113/63 (80) 100 02/24/19 00:00 Mechanical Ventilator 02/23/19 23:35 63 02/23/19 23:23 63 24 40 02/23/19 21:24 63 26 40 02/23/19 21:11 99.1 02/23/19 20:43 89 138/77 02/23/19 20:00 40 02/23/19 20:00 99.8 77 28 138/74 (95) 98 02/23/19 20:00 Mechanical Ventilator 02/23/19 19:58 70 02/23/19 19:01 71 26 40 Intake and Output 02/23/19 02/24/19 19:00 07:00 Intake Total 2293.6 ml 1500 ml Output Total 800 ml Balance 1493.6 ml 1500 ml Intake Free Water 500 ml 300 ml IV Total 1313.6 ml 840 ml Tube Feeding 480 ml 360 ml Output Urine Total 800 ml # Bowel Movements 2 1 Laboratory Tests 02/23/19 23:07: Sodium Level 141, Potassium Level 3.9, Chloride Level 111H, Carbon Dioxide Level 28, Anion Gap 2L, Blood Urea Nitrogen 25H, Creatinine 0.6, Estimat Glomerular Filtration Rate , Glucose Level 95, Calcium Level 8.8, Magnesium Level 1.7L, Total Bilirubin 0.4, Aspartate Amino Transf (AST/SGOT) 30, Alanine Aminotransferase (ALT/SGPT) 15, Alkaline Phosphatase 580H, Pro-B-Type Natriuretic Peptide 4376H, Total Protein 7.1, Albumin 1.0L, Globulin 6.1, Albumin/Globulin Ratio 0.2L, Triglycerides Level 57, Cholesterol Level 76, LDL Cholesterol 43, HDL Cholesterol 26L, Cholesterol/HDL Ratio 2.9L, Thyroid Stimulating Hormone (TSH) 2.727, Random Amikacin Level 14.4 Height (Feet): 6 Height (Inches): 0.00 Weight (Pounds): 130 Objective General Appearance: WD/WN, confused, cachetic Neck: non-tender, supple Cardiovascular: normal peripheral pulses, normal rate, regular rhythm Respiratory/Chest: chest wall non-tender, lungs clear, normal breath sounds Edema: no edema noted Arm (L), no edema noted Arm (R), no edema noted Leg (L), no edema noted Leg (R), no edema noted Pedal (L), no edema noted Pedal (R), no edema noted Generalized Jarrod Vásquez MD Feb 24, 2019 18:26
--- NOTE | 2019-02-24 19:19 | NUR ---
HAND-OFF: Report given to LALA Leggett. Pt in stable condition.
--- NOTE | 2019-02-24 19:23 | NUR ---
NURSE NOTES: Received bedside report from LALA Lopez.Patient stable,obtunded,SR on ore tester,no s/s of pain,no respiratory distress noted,trach Portex 7 AC 12 TV 500 FiO2 40% PEEP 5 tolerated setting well,GT order with Osmolite 1.5@ 40 ml/hr,tolerated well no residual,BS active in all quadrants,IV asymptomatic intact on BASIL running with 1/2 NS @100ml/hr,patient clean and dry, 2 gm of Magnesium given by previous nurse,next labs schedule in a morning,bed secured in a low safety position,call light within a reach,will continue to monitor and follow POC
[2019-02-24 20:00] VITALS: BP 128/60
[2019-02-24] MEDS: Doxazosin 1mg Tab GT SCH (20:53)
--- NOTE | 2019-02-24 21:32 | General Progress Note ---
Assessment/Plan Status: stable, progressing Assessment/Plan: GI Consult ATSP for diarrhea Dictated High risk for C Diff. Await assay. Thank you Oli Amaya MD Subjective Allergies: Coded Allergies: No Known Allergies (Unverified , 01/27/17) Objective Last 24 Hour Vital Signs Date Time Temp Pulse Resp B/P (MAP) Pulse Ox O2 Delivery O2 Flow Rate FiO2 02/24/19 21:19 65 21 40 02/24/19 20:53 72 126/62 02/24/19 20:00 98.1 70 22 128/60 (82) 100 02/24/19 20:00 40 02/24/19 20:00 Mechanical Ventilator 02/24/19 19:27 67 02/24/19 19:19 66 12 40 02/24/19 17:26 74 26 40 02/24/19 16:00 98.2 67 22 107/59 (75) 100 02/24/19 16:00 65 02/24/19 16:00 Mechanical Ventilator 02/24/19 16:00 40 02/24/19 15:04 76 24 40 02/24/19 13:18 71 24 40 02/24/19 12:00 Mechanical Ventilator 02/24/19 12:00 40 02/24/19 12:00 97.9 62 26 102/51 (68) 100 02/24/19 12:00 62 02/24/19 11:27 63 24 40 02/24/19 09:30 86 24 40 02/24/19 08:20 75 128/64 02/24/19 08:20 75 128/64 02/24/19 08:00 97.9 75 20 128/64 (85) 100 02/24/19 08:00 Mechanical Ventilator 02/24/19 08:00 40 02/24/19 07:50 70 02/24/19 07:30 78 31 40 02/24/19 04:43 63 24 40 02/24/19 04:00 98.4 60 24 117/59 (78) 100 02/24/19 03:58 40 02/24/19 03:56 Mechanical Ventilator 02/24/19 03:29 64 02/24/19 03:26 63 25 40 02/24/19 01:33 57 23 40 02/24/19 00:00 99.2 63 22 113/63 (80) 100 02/24/19 00:00 Mechanical Ventilator 02/23/19 23:35 63 02/23/19 23:23 63 24 40 Intake and Output 02/23/19 02/24/19 18:59 06:59 Intake Total 2183.6 ml 1640 ml Output Total 800 ml Balance 1383.6 ml 1640 ml Intake Free Water 500 ml 300 ml IV Total 1213.6 ml 940 ml Tube Feeding 470 ml 400 ml Output Urine Total 800 ml # Bowel Movements 2 1 Laboratory Tests 02/23/19 23:07: Sodium Level 141, Potassium Level 3.9, Chloride Level 111H, Carbon Dioxide Level 28, Anion Gap 2L, Blood Urea Nitrogen 25H, Creatinine 0.6, Estimat Glomerular Filtration Rate , Glucose Level 95, Calcium Level 8.8, Magnesium Level 1.7L, Total Bilirubin 0.4, Aspartate Amino Transf (AST/SGOT) 30, Alanine Aminotransferase (ALT/SGPT) 15, Alkaline Phosphatase 580H, Pro-B-Type Natriuretic Peptide 4376H, Total Protein 7.1, Albumin 1.0L, Globulin 6.1, Albumin/Globulin Ratio 0.2L, Triglycerides Level 57, Cholesterol Level 76, LDL Cholesterol 43, HDL Cholesterol 26L, Cholesterol/HDL Ratio 2.9L, Thyroid Stimulating Hormone (TSH) 2.727, Random Amikacin Level 14.4 Height (Feet): 6 Height (Inches): 0.00 Weight (Pounds): 130 Oli Amaya MD Feb 24, 2019 21:32
[2019-02-25] VITALS: BP 114/54
--- NOTE | 2019-02-25 01:30 | Progress Note ---
DATE: 02/24/2019 CARDIOLOGY PROGRESS NOTE SUBJECTIVE: The patient on ventilator support, non-communicative. No new bleeding, but monitored sinus rhythm. OBJECTIVE: VITAL SIGNS: Blood pressure 107/59, heart rate 67, respiratory rate 22. LUNGS: Thin trach secretions. Few rhonchi. HEART: Regular rhythm rate. Normal S1, S2 with a fourth heart sound. ABDOMEN: Soft with G-tube. EXTREMITIES: Without edema. Contractures are noted. IMPRESSION: 1. Ventilator-dependent respiratory failure. 2. Sepsis. 3. Paroxysmal atrial fibrillation. 4. Healthcare-acquired pneumonia, resolved. 5. Dehydration and hypernatremia, recovering. 6. Acute renal failure. 7. Chronic diastolic congestive heart failure. PLAN: 1. Adjust IV fluids. 2. Recheck laboratory studies. 3. Off antihypertensives with the exception of beta-cr therapy on board. 4. Respiratory hygiene and ventilator support. Jones Arauz M.D. DR: PHILOMENA JOB#: [id number] CC:
--- NOTE | 2019-02-25 02:45 | Consultation ---
DATE OF CONSULTATION: 02/24/2019 CHIEF COMPLAINT: I was asked to see this patient by Dr. Jarrod Vásquez for evaluation of diarrhea. HISTORY OF PRESENT ILLNESS: The patient is an unfortunate 73-year-old man with multiple medical problems including stroke, encephalopathy, respiratory failure with tracheostomy and gastrostomy, who presents to the hospital for infection and other processes as outlined in the chart. The patient has been seen by Pulmonary, Infectious Diseases, Medicine, and other services. The patient has now been noted to have diarrhea. He recently came off of antibiotics. He has a history of pulmonary tuberculosis which was treated. The patient himself is unable to provide any history. Most of the information is available from the chart. PAST MEDICAL HISTORY: History of encephalopathy, history of seizure disorder, respiratory failure, tracheostomy tube placement, gastrostomy tube placement, wound infections, pulmonary tuberculosis. FAMILY HISTORY: Noncontributory. SOCIAL HISTORY: The patient has no history of smoking or drinking. He is a long-term longterm resident at this time. MEDICATIONS: Noted. REVIEW OF SYSTEMS: Otherwise unobtainable. ALLERGIES: None. PHYSICAL EXAMINATION: GENERAL: Debilitated thin man, seen on the ventilator. HEENT: Normocephalic and atraumatic. Sclera anicteric. Temporal wasting. NECK: Supple. Tracheostomy is in place. CHEST: Coarse breath sounds. CARDIOVASCULAR: Revealed a regular rate. ABDOMEN: Soft with gastrostomy tube. EXTREMITIES: Revealed contractures and wounds. LABORATORY DATA: Noted. ASSESSMENT: This patient presents with diarrhea and he is at high risk for Clostridium difficile infection given his age and debilitation and his multiple recent antibiotics. As such, we should have his Clostridium difficile assay checked in the stool. A consideration can be made for empiric treatment with vancomycin, I will defer this to Infectious Disease sustainability consultant. In the meantime, his tube feedings can be continued. Should his diarrhea not be infectious in pathology, then a trial of different tube feedings can be considered. RECOMMENDATIONS: Per above discussion and per orders written in the chart. Thank you for asking me to participate in the care of this patient. Oli Amaya M.D. DR: Monica JOB#: [id number] CC:
[2019-02-25 04:00] VITALS: BP 114/55
[2019-02-25 05:57] LABS: BASOPHILS % (AUTO) 7.7 % (0.0-2.0); EOSINOPHILS % (AUTO) 0.8 % (0.0-3.0); HEMATOCRIT 26.9 % (42.0-52.0); LYMPHOCYTES % (AUTO) 33.6 % (20.0-45.0); MEAN CORPUSCULAR VOLUME 95 FL (80-99); MONOCYTES % (AUTO) 7.5 % (1.0-10.0); NEUTROPHILS % (AUTO) 50.4 % (45.0-75.0); PLATELET COUNT 382 K/UL (150-450); RED BLOOD COUNT 2.84 M/UL (4.70-6.10); RED CELL DISTRIBUTION WIDTH 17.6 % (11.6-14.8); WHITE BLOOD COUNT 9.6 K/UL (4.8-10.8)
[2019-02-25 06:23] LABS: ALANINE AMINOTRANSFERASE 15 U/L (12-78); ALBUMIN 1.1 G/DL (3.4-5.0); ALBUMIN/GLOBULIN RATIO 0.2 (1.0-2.7); ALKALINE PHOSPHATASE 537 U/L (46-116); ANION GAP 9 mmol/L (5-15); ASPARTATE AMINO TRANSFERASE 37 U/L (15-37); BILIRUBIN,TOTAL 0.3 MG/DL (0.2-1.0); BLOOD UREA NITROGEN 26 mg/dL (7-18); CALCIUM 8.6 MG/DL (8.5-10.1); CARBON DIOXIDE 24 MMOL/L (21-32); CHLORIDE 111 MMOL/L (98-107); CREATININE 0.7 MG/DL (0.55-1.30); POTASSIUM 4.3 MMOL/L (3.5-5.1); SODIUM 144 MMOL/L (136-145)
--- NOTE | 2019-02-25 07:23 | NUR ---
HAND-OFF: Report given to Petrona Morgan RN.Patient stable,no s/s of pain at this time.
--- NOTE | 2019-02-25 07:35 | NUR ---
NURSE NOTES: Received the patient from LALA Leggett. Patient is obtunded. No acute distress noted. Trach Portex 7, AC12, TV 500, FIO2 40%, PEEP 5. 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 G-tube intact, running Osmolite 1.5 at 40ml/hr. HOB kept elevated. Right upper arm 20G intact, running 1/2NS at 100ml/hr. Manzo cath intact and patent, draining urine by gravity. On P200 mattress for wound care. wound dressings intact, clean and dry. Bed in lowest position, locked, side rails upx3, side rails padded. Bed alarm on. Call light within reach. Will continue to monitor.
[2019-02-25 08:00] VITALS: BP 125/62
--- NOTE | 2019-02-25 08:00 | NUR ---
NURSE NOTES: patient seen by Dr. Vásquez and Dr. Amaya. MDs made aware that patient had normal BM this am and C. diff was not collected per previous shift nurse.
--- NOTE | 2019-02-25 08:05 | General Progress Note ---
Assessment/Plan Problem List: (1) Decubitus ulcer ICD Codes: L89.90 - Pressure ulcer of unspecified site, unspecified stage SNOMED: 096429664 (2) Anemia ICD Codes: D64.9 - Anemia, unspecified SNOMED: 688332682 (3) Sepsis ICD Codes: A41.9 - Sepsis, unspecified organism SNOMED: 38511918 (4) HTN (hypertension) ICD Codes: I10 - Essential (primary) hypertension SNOMED: 10056469 (5) Encephalopathy acute ICD Codes: G93.40 - Encephalopathy, unspecified SNOMED: 74152134, 142893005 (6) BPH (benign prostatic hyperplasia) ICD Codes: N40.0 - Benign prostatic hyperplasia without lower urinary tract symptoms SNOMED: 940248220, 770280493 (7) UTI (urinary tract infection), bacterial ICD Codes: N39.0 - Urinary tract infection, site not specified; A49.9 - Bacterial infection, unspecified SNOMED: 503006893 Status: stable, progressing Assessment/Plan: iv abx vent support resp rx suctioning as needed tube feeds wound care monitor h/h - trending down transfuse as needed added epo/iron sz rx poor prognosis dc planning Subjective ROS Limited/Unobtainable: Yes Constitutional: Reports: malaise, weakness HEENT: Reports: no symptoms Cardiovascular: Reports: no symptoms Respiratory: Reports: shortness of breath, sputum Gastrointestinal/Abdominal: Reports: difficulty swallowing Genitourinary: Reports: no symptoms Neurologic/Psychiatric: Reports: pre-existing deficit, seizure Endocrine: Reports: no symptoms Hematologic/Lymphatic: Reports: no symptoms Allergies: Coded Allergies: No Known Allergies (Unverified , 01/27/17) All Systems: reviewed and negative except above Subjective no events. stable on the vent. no bleeding noted. on iv abx. culture noted. labs improving. remains poorly responsive no szs diarrhea better Objective Last 24 Hour Vital Signs Date Time Temp Pulse Resp B/P (MAP) Pulse Ox O2 Delivery O2 Flow Rate FiO2 02/25/19 05:16 66 25 40 02/25/19 04:00 98.2 65 21 114/55 (74) 100 02/25/19 04:00 Mechanical Ventilator 02/25/19 04:00 40 02/25/19 03:23 64 02/25/19 03:00 66 24 40 02/25/19 01:18 77 26 40 02/25/19 00:00 98.4 63 21 114/54 (74) 100 02/25/19 00:00 Mechanical Ventilator 02/24/19 23:28 61 02/24/19 22:53 66 29 40 02/24/19 21:19 65 21 40 02/24/19 20:53 72 126/62 02/24/19 20:00 98.1 70 22 128/60 (82) 100 02/24/19 20:00 40 02/24/19 20:00 Mechanical Ventilator 02/24/19 19:27 67 02/24/19 19:19 66 12 40 02/24/19 17:26 74 26 40 02/24/19 16:00 98.2 67 22 107/59 (75) 100 02/24/19 16:00 65 02/24/19 16:00 Mechanical Ventilator 02/24/19 16:00 40 02/24/19 15:04 76 24 40 02/24/19 13:18 71 24 40 02/24/19 12:00 Mechanical Ventilator 02/24/19 12:00 40 02/24/19 12:00 97.9 62 26 102/51 (68) 100 02/24/19 12:00 62 02/24/19 11:27 63 24 40 02/24/19 09:30 86 24 40 02/24/19 08:20 75 128/64 02/24/19 08:20 75 128/64 Intake and Output 02/24/19 02/25/19 19:00 07:00 Intake Total 2180 ml 2155 ml Output Total 550 ml 800 ml Balance 1630 ml 1355 ml Intake Free Water 450 ml 450 ml IV Total 1250 ml 1225 ml Tube Feeding 480 ml 480 ml Output Urine Total 550 ml 800 ml # Bowel Movements 2 Laboratory Tests 02/25/19 04:30: White Blood Count 9.6, Red Blood Count 2.84L, Hemoglobin 8.0L, Hematocrit 26.9L , Mean Corpuscular Volume 95, Mean Corpuscular Hemoglobin 28.3, Mean Corpuscular Hemoglobin Concent 29.8L, Red Cell Distribution Width 17.6H, Platelet Count 382, Mean Platelet Volume 5.0L, Neutrophils (%) (Auto) 50.4, Lymphocytes (%) (Auto) 33.6, Monocytes (%) (Auto) 7.5, Eosinophils (%) (Auto) 0.8, Basophils (%) (Auto) 7.7H, Sodium Level 144, Potassium Level 4.3, Chloride Level 111H, Carbon Dioxide Level 24, Anion Gap 9, Blood Urea Nitrogen 26H, Creatinine 0.7, Estimat Glomerular Filtration Rate , Glucose Level 53L, Calcium Level 8.6, Magnesium Level 1.8, Total Bilirubin 0.3, Aspartate Amino Transf (AST /SGOT) 37, Alanine Aminotransferase (ALT/SGPT) 15, Alkaline Phosphatase 537H, Pro-B-Type Natriuretic Peptide 4339H, Total Protein 7.2, Albumin 1.1L, Globulin 6.1, Albumin/Globulin Ratio 0.2L Height (Feet): 6 Height (Inches): 0.00 Weight (Pounds): 131 Objective General Appearance: WD/WN, confused, cachetic Neck: non-tender, supple Cardiovascular: normal peripheral pulses, normal rate, regular rhythm Respiratory/Chest: chest wall non-tender, lungs clear, normal breath sounds Edema: no edema noted Arm (L), no edema noted Arm (R), no edema noted Leg (L), no edema noted Leg (R), no edema noted Pedal (L), no edema noted Pedal (R), no edema noted Generalized Jarrod Vásquez MD Feb 25, 2019 08:05
[2019-02-25] MEDS: Metoprolol Tartrate 50mg tab GT SCH (08:34)
[2019-02-25] MEDS: Aspirin Baby 81mg GT SCH (08:34)
[2019-02-25] MEDS: Dakin's 0.125% Soln (Quarter Strength) 16oz TOPIC SCH (08:35)
[2019-02-25] MEDS: levETIRAcetam 500mg/5ml Liquid GT SCH (08:35)
--- NOTE | 2019-02-25 08:41 | General Progress Note ---
Assessment/Plan Status: stable, progressing Assessment/Plan: Assessment - loose BM - r/o C Difff - chronic and slowly rising elevated alk phos, negative hepatitis and TRISTAN serologies in 2018 - Nodular liver on CT, ? infiltrative liver disease, ? TB - resp failure - h/o pulmonary TB, treated - s/p recent abx - s/p trach and PEG Recommendations - follow LFT - continue TF - check C Diff - not a good candidate for liver biopsy but will d/w family Subjective Allergies: Coded Allergies: No Known Allergies (Unverified , 01/27/17) Subjective Above noted d/w RN BM more formed overnight so C Diff specimen not collected tolerating TF Objective Last 24 Hour Vital Signs Date Time Temp Pulse Resp B/P (MAP) Pulse Ox O2 Delivery O2 Flow Rate FiO2 02/25/19 08:00 98.4 73 23 125/62 (83) 100 02/25/19 08:00 40 02/25/19 08:00 Mechanical Ventilator 02/25/19 07:08 70 23 40 02/25/19 05:16 66 25 40 02/25/19 04:00 98.2 65 21 114/55 (74) 100 02/25/19 04:00 Mechanical Ventilator 02/25/19 04:00 40 02/25/19 03:23 64 02/25/19 03:00 66 24 40 02/25/19 01:18 77 26 40 02/25/19 00:00 98.4 63 21 114/54 (74) 100 02/25/19 00:00 Mechanical Ventilator 02/24/19 23:28 61 02/24/19 22:53 66 29 40 02/24/19 21:19 65 21 40 02/24/19 20:53 72 126/62 02/24/19 20:00 98.1 70 22 128/60 (82) 100 02/24/19 20:00 40 02/24/19 20:00 Mechanical Ventilator 02/24/19 19:27 67 02/24/19 19:19 66 12 40 02/24/19 17:26 74 26 40 02/24/19 16:00 98.2 67 22 107/59 (75) 100 02/24/19 16:00 65 02/24/19 16:00 Mechanical Ventilator 02/24/19 16:00 40 02/24/19 15:04 76 24 40 02/24/19 13:18 71 24 40 02/24/19 12:00 Mechanical Ventilator 02/24/19 12:00 40 02/24/19 12:00 97.9 62 26 102/51 (68) 100 02/24/19 12:00 62 02/24/19 11:27 63 24 40 02/24/19 09:30 86 24 40 Intake and Output 02/24/19 02/25/19 19:00 07:00 Intake Total 2180 ml 2155 ml Output Total 550 ml 800 ml Balance 1630 ml 1355 ml Intake Free Water 450 ml 450 ml IV Total 1250 ml 1225 ml Tube Feeding 480 ml 480 ml Output Urine Total 550 ml 800 ml # Bowel Movements 2 Laboratory Tests 02/25/19 04:30: White Blood Count 9.6, Red Blood Count 2.84L, Hemoglobin 8.0L, Hematocrit 26.9L , Mean Corpuscular Volume 95, Mean Corpuscular Hemoglobin 28.3, Mean Corpuscular Hemoglobin Concent 29.8L, Red Cell Distribution Width 17.6H, Platelet Count 382, Mean Platelet Volume 5.0L, Neutrophils (%) (Auto) 50.4, Lymphocytes (%) (Auto) 33.6, Monocytes (%) (Auto) 7.5, Eosinophils (%) (Auto) 0.8, Basophils (%) (Auto) 7.7H, Sodium Level 144, Potassium Level 4.3, Chloride Level 111H, Carbon Dioxide Level 24, Anion Gap 9, Blood Urea Nitrogen 26H, Creatinine 0.7, Estimat Glomerular Filtration Rate , Glucose Level 53L, Calcium Level 8.6, Magnesium Level 1.8, Total Bilirubin 0.3, Aspartate Amino Transf (AST /SGOT) 37, Alanine Aminotransferase (ALT/SGPT) 15, Alkaline Phosphatase 537H, Pro-B-Type Natriuretic Peptide 4339H, Total Protein 7.2, Albumin 1.1L, Globulin 6.1, Albumin/Globulin Ratio 0.2L Height (Feet): 6 Height (Inches): 0.00 Weight (Pounds): 131 Objective Thin elderly AA man temporal wasting (+) trach coarse BS RR abd, (+) GT soft, flat ext contracted Neuro Obtunded Oli Amaya MD Feb 25, 2019 08:40
--- NOTE | 2019-02-25 11:04 | Infectious Diseases Prog Note ---
Assessment/Plan Assessment/Plan antibiotics : none A 1. proteus UTI s/p rx 2. pulmonary TB s/p rx 3. respiratory failure 4. leucocytosis resolved 5. seizures 6. sacral decubitus ulcer P 1. continue off antibiotics Subjective ROS Limited/Unobtainable: Yes Allergies: Coded Allergies: No Known Allergies (Unverified , 01/27/17) Objective Vital Signs Last 24 Hour Vital Signs Date Time Temp Pulse Resp B/P (MAP) Pulse Ox O2 Delivery O2 Flow Rate FiO2 02/25/19 10:50 65 22 40 02/25/19 08:57 68 24 40 02/25/19 08:34 73 125/62 02/25/19 08:34 73 125/62 02/25/19 08:00 70 02/25/19 08:00 98.4 73 23 125/62 (83) 100 02/25/19 08:00 40 02/25/19 08:00 Mechanical Ventilator 02/25/19 07:08 70 23 40 02/25/19 05:16 66 25 40 02/25/19 04:00 98.2 65 21 114/55 (74) 100 02/25/19 04:00 Mechanical Ventilator 02/25/19 04:00 40 02/25/19 03:23 64 02/25/19 03:00 66 24 40 02/25/19 01:18 77 26 40 02/25/19 00:00 98.4 63 21 114/54 (74) 100 02/25/19 00:00 Mechanical Ventilator 02/24/19 23:28 61 02/24/19 22:53 66 29 40 02/24/19 21:19 65 21 40 02/24/19 20:53 72 126/62 02/24/19 20:00 98.1 70 22 128/60 (82) 100 02/24/19 20:00 40 02/24/19 20:00 Mechanical Ventilator 02/24/19 19:27 67 02/24/19 19:19 66 12 40 02/24/19 17:26 74 26 40 02/24/19 16:00 98.2 67 22 107/59 (75) 100 02/24/19 16:00 65 02/24/19 16:00 Mechanical Ventilator 02/24/19 16:00 40 02/24/19 15:04 76 24 40 02/24/19 13:18 71 24 40 02/24/19 12:00 Mechanical Ventilator 02/24/19 12:00 40 02/24/19 12:00 97.9 62 26 102/51 (68) 100 02/24/19 12:00 62 02/24/19 11:27 63 24 40 Height (Feet): 6 Height (Inches): 0.00 Weight (Pounds): 131 HEENT: status post trach Respiratory/Chest: lungs clear Cardiovascular: normal rate, regular rhythm, no gallop/murmur Abdomen: soft, non tender, other - GT Extremities: other - + edema Laboratory Tests Test 02/25/19 04:30 White Blood Count 9.6 K/UL (4.8-10.8) Red Blood Count 2.84 M/UL (4.70-6.10) L Hemoglobin 8.0 G/DL (14.2-18.0) L Hematocrit 26.9 % (42.0-52.0) L Mean Corpuscular Volume 95 FL (80-99) Mean Corpuscular Hemoglobin 28.3 PG (27.0-31.0) Mean Corpuscular Hemoglobin Concent 29.8 G/DL (32.0-36.0) L Red Cell Distribution Width 17.6 % (11.6-14.8) H Platelet Count 382 K/UL (150-450) Mean Platelet Volume 5.0 FL (6.5-10.1) L Neutrophils (%) (Auto) 50.4 % (45.0-75.0) Lymphocytes (%) (Auto) 33.6 % (20.0-45.0) Monocytes (%) (Auto) 7.5 % (1.0-10.0) Eosinophils (%) (Auto) 0.8 % (0.0-3.0) Basophils (%) (Auto) 7.7 % (0.0-2.0) H Sodium Level 144 MMOL/L (136-145) Potassium Level 4.3 MMOL/L (3.5-5.1) Chloride Level 111 MMOL/L (98-107) H Carbon Dioxide Level 24 MMOL/L (21-32) Anion Gap 9 mmol/L (5-15) Blood Urea Nitrogen 26 mg/dL (7-18) H Creatinine 0.7 MG/DL (0.55-1.30) Estimat Glomerular Filtration Rate mL/min (>60) Glucose Level 53 MG/DL (74-106) L Calcium Level 8.6 MG/DL (8.5-10.1) Magnesium Level 1.8 MG/DL (1.8-2.4) Total Bilirubin 0.3 MG/DL (0.2-1.0) Aspartate Amino Transf (AST/SGOT) 37 U/L (15-37) Alanine Aminotransferase (ALT/SGPT) 15 U/L (12-78) Alkaline Phosphatase 537 U/L (46-116) H Pro-B-Type Natriuretic Peptide 4339 pg/mL (0-125) H Total Protein 7.2 G/DL (6.4-8.2) Albumin 1.1 G/DL (3.4-5.0) L Globulin 6.1 g/dL Albumin/Globulin Ratio 0.2 (1.0-2.7) L Current Medications Medications (Trade) Dose Ordered Sig/Iram Route PRN Reason Start Time Stop Time Status Last Admin Dose Admin Acetaminophen (Tylenol) 650 mg Q4H PRN ORAL Mild Pain/Temp > 100.5 02/18/19 19:45 03/20/19 19:44 02/23/19 20:41 Acetaminophen/ Hydrocodone Bitart ([place] 5/325) 1 tab Q8H PRN GT For Pain 02/18/19 19:45 02/25/19 19:44 Albuterol/ Ipratropium (Albuterol/ Ipratropium) 3 ml Q4H PRN HHN Shortness of Breath 02/22/19 17:00 03/02/19 16:59 Amlodipine Besylate (Norvasc) 10 mg DAILY GT 02/19/19 09:00 03/21/19 08:59 02/25/19 08:34 Artificial Tears (Akwa-Tears) 2 drop Q2H PRN BOTH EYES DRY EYES 02/18/19 19:45 03/20/19 19:44 Aspirin (ASA) 81 mg DAILY GT 02/19/19 09:00 03/21/19 08:59 02/25/19 08:34 Atorvastatin Calcium (Lipitor) 10 mg BEDTIME GT 02/18/19 21:00 03/20/19 20:59 02/24/19 20:53 Doxazosin Mesylate (Cardura) 1 mg QHS GT 02/18/19 21:00 03/20/19 20:59 02/24/19 20:53 Epoetin Janak (Epoetin Janak-EPBX(NON ESRD)) 2,000 unit SUBQ 02/25/19 21:00 03/27/19 20:59 Epoetin Janak (Epoetin Janak-EPBX(NON ESRD)) 3,000 unit SUBQ 02/25/19 21:00 03/27/19 20:59 Iron Sucrose 100 mg/Sodium Chloride 60 ml @ 240 mls/hr BEDTIME IV 02/25/19 21:00 03/01/19 21:14 Lansoprazole (Prevacid) 30 mg Q12HR GT 02/24/19 21:00 03/20/19 20:59 02/25/19 08:34 Levetiracetam (Keppra) 750 mg Q12HR GT 02/18/19 21:00 03/20/19 20:59 02/25/19 08:35 Lorazepam (Ativan 2mg/ml 1ml) 1 mg Q4H PRN IV For Seizures 02/23/19 10:00 03/02/19 09:59 Metoprolol Tartrate (Lopressor) 50 mg EVERY 12 HOURS GT 02/18/19 21:00 03/20/19 20:59 02/25/19 08:34 Multivitamins (Multivitamins) 1 tab DAILY GT 02/19/19 09:00 03/21/19 08:59 02/25/19 08:34 Sodium Hypochlorite (Dakin's Quarter Strength) 1 applic DAILY TOPIC 02/19/19 10:00 03/21/19 09:59 02/25/19 08:35 Sodium Chloride 1,000 ml @ 100 mls/hr Q10H IV 02/18/19 19:45 03/20/19 19:44 02/25/19 02:30 Sergio Urban MD Feb 25, 2019 11:04
[2019-02-25 12:00] VITALS: BP 121/61
--- NOTE | 2019-02-25 12:30 | NUR ---
NURSE NOTES: Oral care and mcintyre care provided. Patient was turned and repositioned. Wound dressings intact, clean and dry. No BM yet.
--- NOTE | 2019-02-25 12:34 | NUR ---
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 98.0 HR 75 RR 26 B/P 121/61 AC 12 TV 500 FIO2 40% PEEP 5 BNP 4339 GLU 53 ALK PHOS 537 BUN 23 IS: IVF NS @ 100ML/HR IRON IV CARDURA GT STEP DOWN STATUS
--- NOTE | 2019-02-25 14:07 | NUR ---
Social Service Note Referral faxed to [facility] [phone] (p) [phone] (f). Will follow up.
--- NOTE | 2019-02-25 14:45 | NUR ---
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 2) Swallowing difficulty r/t dysphagia, respiratory status as evidenced by pt is PEG dep, trach/vent dep. . (CURRENT TF:Osmolite 1.5 @40 ml + Prosource x4) ENTERAL NUTRITION RECOMMENDATIONS: Osmolite 1.5 @ 50ml/hr x 24 hrs + Prosource TID to provide 1200ml, 1800 kcal, 75g pro + 33g pro, 914ml free H2O - Rec TF change to vital 1.2. Start @25ml/hr. advance as tolerated 10ml q4-6 hrs to goal. - Meets 100% est kcal and protein needs. - HOB over 30 degrees/ water flush per MD (rec flushes to total 550-750ml/day to meet est fluid needs) ----- ADDITIONAL RECOMMENDATIONS: 1) WOUND HEALING: Continue Vit C and Edgard 1pkt BID Add ZnSO4 220mg daily x10 days 2) RECALIBRATED BED SCALE FOR ACCURATE CBW + weekly wt monitoring given underweight status 3) Check lytes daily, replete as needed 4) PER SNF: FEBRUARY 2019 WEIGHT 125 LBS + HEIGHT OF 67 INCHES.
--- NOTE | 2019-02-25 14:45 | Pulmonology Progress Note ---
Assessment/Plan Assessment/Plan Pulmonary Progress Note Patient is a 73-year-old male chronically ill who is ventilator dependent. Transferred from senior living facility due to severe renal impairment and anemia, worsening leukocytosis, and hypernatremia. Admitted for sepsis. Noted to have Pulmonary infiltrates Stable on ventilator PAST MEDICAL HISTORY: stroke, seizure disorder, and chronic respiratory failure, decubitus, h/o TB and pneumonia. h/o sepsis PAST SURGICAL HISTORY: Includes a prior history of a trach and a G-tube. ALLERGIES: None. PHYSICAL EXAMINATION: Vital signs noted GENERAL APPEARANCE: The patient is a chronically ill-appearing male, in no apparent distress. unresponsive. NECK: Supple. Trach site is clean, dry, and intact. CARDS: RRR without MRG LUNGS: occasional rhonchi. moderate air entry; no wheeze ABDOMEN: Soft, nontender, and nondistended. GT EXTREMITIES: No clubbing or cyanosis. reduced skin turgor multiple decubitus NEURO: obtunded Labs noted ASSESSMENT: toxic metabolic encephalopathy, history of stroke, chronic respiratory failure, hypernatremia, acute on chronic renal failure, chronic encephalopathy, seizure disorder, previous pulmonary tuberculosis, and anemia Proteus UTI s/p rx, sacral decubitus ulcer PLAN care noted transfuse ID following - off AB respiratory care Ventilatory support- no wean and maintain AC SNF meds supportive care as is suction oxygen therapy noted prognosis poor monitor for infection impression, plan, and exam edited and reviewed in detail care discussed with RN Subjective ROS Limited/Unobtainable: No Allergies: Coded Allergies: No Known Allergies (Unverified , 01/27/17) Objective Last 24 Hour Vital Signs Date Time Temp Pulse Resp B/P (MAP) Pulse Ox O2 Delivery O2 Flow Rate FiO2 02/25/19 13:00 69 24 40 02/25/19 12:00 66 02/25/19 12:00 98.2 75 26 121/61 (81) 100 02/25/19 12:00 40 02/25/19 12:00 Mechanical Ventilator 02/25/19 10:50 65 22 40 02/25/19 08:57 68 24 40 02/25/19 08:34 73 125/62 02/25/19 08:34 73 125/62 02/25/19 08:00 70 02/25/19 08:00 98.4 73 23 125/62 (83) 100 02/25/19 08:00 40 02/25/19 08:00 Mechanical Ventilator 02/25/19 07:08 70 23 40 02/25/19 05:16 66 25 40 02/25/19 04:00 98.2 65 21 114/55 (74) 100 02/25/19 04:00 Mechanical Ventilator 02/25/19 04:00 40 02/25/19 03:23 64 02/25/19 03:00 66 24 40 02/25/19 01:18 77 26 40 02/25/19 00:00 98.4 63 21 114/54 (74) 100 02/25/19 00:00 Mechanical Ventilator 02/24/19 23:28 61 02/24/19 22:53 66 29 40 02/24/19 21:19 65 21 40 02/24/19 20:53 72 126/62 02/24/19 20:00 98.1 70 22 128/60 (82) 100 02/24/19 20:00 40 02/24/19 20:00 Mechanical Ventilator 02/24/19 19:27 67 02/24/19 19:19 66 12 40 02/24/19 17:26 74 26 40 02/24/19 16:00 98.2 67 22 107/59 (75) 100 02/24/19 16:00 65 02/24/19 16:00 Mechanical Ventilator 02/24/19 16:00 40 02/24/19 15:04 76 24 40 Intake and Output 02/24/19 02/25/19 19:00 07:00 Intake Total 2180 ml 2155 ml Output Total 550 ml 800 ml Balance 1630 ml 1355 ml Intake Free Water 450 ml 450 ml IV Total 1250 ml 1225 ml Tube Feeding 480 ml 480 ml Output Urine Total 550 ml 800 ml # Bowel Movements 2 Laboratory Tests 02/25/19 04:30: White Blood Count 9.6, Red Blood Count 2.84L, Hemoglobin 8.0L, Hematocrit 26.9L , Mean Corpuscular Volume 95, Mean Corpuscular Hemoglobin 28.3, Mean Corpuscular Hemoglobin Concent 29.8L, Red Cell Distribution Width 17.6H, Platelet Count 382, Mean Platelet Volume 5.0L, Neutrophils (%) (Auto) 50.4, Lymphocytes (%) (Auto) 33.6, Monocytes (%) (Auto) 7.5, Eosinophils (%) (Auto) 0.8, Basophils (%) (Auto) 7.7H, Sodium Level 144, Potassium Level 4.3, Chloride Level 111H, Carbon Dioxide Level 24, Anion Gap 9, Blood Urea Nitrogen 26H, Creatinine 0.7, Estimat Glomerular Filtration Rate , Glucose Level 53L, Calcium Level 8.6, Magnesium Level 1.8, Total Bilirubin 0.3, Aspartate Amino Transf (AST /SGOT) 37, Alanine Aminotransferase (ALT/SGPT) 15, Alkaline Phosphatase 537H, Pro-B-Type Natriuretic Peptide 4339H, Total Protein 7.2, Albumin 1.1L, Globulin 6.1, Albumin/Globulin Ratio 0.2L Current Medications Medications (Trade) Dose Ordered Sig/Iram Route PRN Reason Start Time Stop Time Status Last Admin Dose Admin Acetaminophen (Tylenol) 650 mg Q4H PRN ORAL Mild Pain/Temp > 100.5 02/18/19 19:45 03/20/19 19:44 02/23/19 20:41 Acetaminophen/ Hydrocodone Bitart (Eldridge 5/325) 1 tab Q8H PRN GT For Pain 02/18/19 19:45 02/25/19 19:44 Albuterol/ Ipratropium (Albuterol/ Ipratropium) 3 ml Q4H PRN HHN Shortness of Breath 02/22/19 17:00 03/02/19 16:59 Amlodipine Besylate (Norvasc) 10 mg DAILY GT 02/19/19 09:00 03/21/19 08:59 02/25/19 08:34 Artificial Tears (Akwa-Tears) 2 drop Q2H PRN BOTH EYES DRY EYES 02/18/19 19:45 03/20/19 19:44 Aspirin (ASA) 81 mg DAILY GT 02/19/19 09:00 03/21/19 08:59 02/25/19 08:34 Atorvastatin Calcium (Lipitor) 10 mg BEDTIME GT 02/18/19 21:00 03/20/19 20:59 02/24/19 20:53 Doxazosin Mesylate (Cardura) 1 mg QHS GT 02/18/19 21:00 03/20/19 20:59 02/24/19 20:53 Epoetin Janak (Epoetin Janak-EPBX(NON ESRD)) 2,000 unit SAT-SAT-SAT SUBQ 02/25/19 21:00 03/27/19 20:59 Epoetin Janak (Epoetin Janak-EPBX(NON ESRD)) 3,000 unit SUBQ 02/25/19 21:00 03/27/19 20:59 Iron Sucrose 100 mg/Sodium Chloride 60 ml @ 240 mls/hr BEDTIME IV 02/25/19 21:00 03/01/19 21:14 Lansoprazole (Prevacid) 30 mg Q12HR GT 02/24/19 21:00 03/20/19 20:59 02/25/19 08:34 Levetiracetam (Keppra) 750 mg Q12HR GT 02/18/19 21:00 03/20/19 20:59 02/25/19 08:35 Lorazepam (Ativan 2mg/ml 1ml) 1 mg Q4H PRN IV For Seizures 02/23/19 10:00 03/02/19 09:59 Metoprolol Tartrate (Lopressor) 50 mg EVERY 12 HOURS GT 02/18/19 21:00 03/20/19 20:59 02/25/19 08:34 Multivitamins (Multivitamins) 1 tab DAILY GT 02/19/19 09:00 03/21/19 08:59 02/25/19 08:34 Sodium Hypochlorite (Dakin's Quarter Strength) 1 applic DAILY TOPIC 02/19/19 10:00 03/21/19 09:59 02/25/19 08:35 Sodium Chloride 1,000 ml @ 100 mls/hr Q10H IV 02/18/19 19:45 03/20/19 19:44 02/25/19 11:41 Jones Rasmussen MD Feb 25, 2019 14:45
--- NOTE | 2019-02-25 15:00 | NUR ---
NURSE NOTES: All wound dressings changed, with wound care nurse.
--- NOTE | 2019-02-25 15:55 | Surgery Progress Note ---
Surgery Progress Note Subjective Additional Comments no acute events Objective Last 24 Hour Vital Signs Date Time Temp Pulse Resp B/P (MAP) Pulse Ox O2 Delivery O2 Flow Rate FiO2 02/25/19 13:00 69 24 40 02/25/19 12:00 66 02/25/19 12:00 98.2 75 26 121/61 (81) 100 02/25/19 12:00 40 02/25/19 12:00 Mechanical Ventilator 02/25/19 10:50 65 22 40 02/25/19 08:57 68 24 40 02/25/19 08:34 73 125/62 02/25/19 08:34 73 125/62 02/25/19 08:00 70 02/25/19 08:00 98.4 73 23 125/62 (83) 100 02/25/19 08:00 40 02/25/19 08:00 Mechanical Ventilator 02/25/19 07:08 70 23 40 02/25/19 05:16 66 25 40 02/25/19 04:00 98.2 65 21 114/55 (74) 100 02/25/19 04:00 Mechanical Ventilator 02/25/19 04:00 40 02/25/19 03:23 64 02/25/19 03:00 66 24 40 02/25/19 01:18 77 26 40 02/25/19 00:00 98.4 63 21 114/54 (74) 100 02/25/19 00:00 Mechanical Ventilator 02/24/19 23:28 61 02/24/19 22:53 66 29 40 02/24/19 21:19 65 21 40 02/24/19 20:53 72 126/62 02/24/19 20:00 98.1 70 22 128/60 (82) 100 02/24/19 20:00 40 02/24/19 20:00 Mechanical Ventilator 02/24/19 19:27 67 02/24/19 19:19 66 12 40 02/24/19 17:26 74 26 40 02/24/19 16:00 98.2 67 22 107/59 (75) 100 02/24/19 16:00 65 02/24/19 16:00 Mechanical Ventilator 02/24/19 16:00 40 I&O Intake and Output 02/24/19 02/25/19 19:00 07:00 Intake Total 2180 ml 2155 ml Output Total 550 ml 800 ml Balance 1630 ml 1355 ml Intake Free Water 450 ml 450 ml IV Total 1250 ml 1225 ml Tube Feeding 480 ml 480 ml Output Urine Total 550 ml 800 ml # Bowel Movements 2 Dressing: other Wound: other Drains: other Cardiovascular: RSR Respiratory: decreased breath sounds Abdomen: soft, present bowel sounds Extremities: other Laboratory Tests Test 02/25/19 04:30 White Blood Count 9.6 K/UL (4.8-10.8) Red Blood Count 2.84 M/UL (4.70-6.10) L Hemoglobin 8.0 G/DL (14.2-18.0) L Hematocrit 26.9 % (42.0-52.0) L Mean Corpuscular Volume 95 FL (80-99) Mean Corpuscular Hemoglobin 28.3 PG (27.0-31.0) Mean Corpuscular Hemoglobin Concent 29.8 G/DL (32.0-36.0) L Red Cell Distribution Width 17.6 % (11.6-14.8) H Platelet Count 382 K/UL (150-450) Mean Platelet Volume 5.0 FL (6.5-10.1) L Neutrophils (%) (Auto) 50.4 % (45.0-75.0) Lymphocytes (%) (Auto) 33.6 % (20.0-45.0) Monocytes (%) (Auto) 7.5 % (1.0-10.0) Eosinophils (%) (Auto) 0.8 % (0.0-3.0) Basophils (%) (Auto) 7.7 % (0.0-2.0) H Sodium Level 144 MMOL/L (136-145) Potassium Level 4.3 MMOL/L (3.5-5.1) Chloride Level 111 MMOL/L (98-107) H Carbon Dioxide Level 24 MMOL/L (21-32) Anion Gap 9 mmol/L (5-15) Blood Urea Nitrogen 26 mg/dL (7-18) H Creatinine 0.7 MG/DL (0.55-1.30) Estimat Glomerular Filtration Rate mL/min (>60) Glucose Level 53 MG/DL (74-106) L Calcium Level 8.6 MG/DL (8.5-10.1) Magnesium Level 1.8 MG/DL (1.8-2.4) Total Bilirubin 0.3 MG/DL (0.2-1.0) Aspartate Amino Transf (AST/SGOT) 37 U/L (15-37) Alanine Aminotransferase (ALT/SGPT) 15 U/L (12-78) Alkaline Phosphatase 537 U/L (46-116) H Pro-B-Type Natriuretic Peptide 4339 pg/mL (0-125) H Total Protein 7.2 G/DL (6.4-8.2) Albumin 1.1 G/DL (3.4-5.0) L Globulin 6.1 g/dL Albumin/Globulin Ratio 0.2 (1.0-2.7) L Plan Problems: (1) Leukocytosis Assessment & Plan: Sepsis with leukocytosis. Labs trending down. On IV antibiotics. Continue current treatment plan (2) Decubitus ulcer Assessment & Plan: Pt presented on admission with multiple pressure injuries. Resolving pressure injury L occipital. Dry pink epithelial noted. Skin assessed under trach collar and no areas of concerns noted . R and L ears dry . Full thickness pressure injury with undermining thoracic spine . Base of wound 75% granular with 25% fibrinous slough. Mild odor noted.(L)8.5cm x (W)6.5cmx(D) 1cm, undermining clockwise 6-1 by 3cm @12o'clock. Full thickness pressure injury L trochanter. 100% mixed necrosis/slough at base of wound and undermined borders.Non-blanchable erythema with induration noted periwound. Mild odor noted .(L)3.5cm x (W)4.5cm. Resolving DTPI L ischium .Centrally wound is red and fluctuant .Bone is palpable. Black with red tinged indurated borders noted. (L) (L)4.4cm x (W) 3.2cm. Ful thickness pressure injury R Iliac with 10% velazquez slough centrally.90% granular.Edges adherent and flat. (L)3cm x (W)3.2cm x(D)0.2cm. No odor or exudate noted.Darker skin tone without fluctuance noted periwound. Full thickness pressure injury with undermining R trochanter. Base of wound 60^ beefy red with 40% velazquez slough.erythejma noted along borders. Small amt seropurulent exudate that is mildly odorous.(L)5.5cm x (W)6.6cm x (D)1.5cm, undermining clockwise 12-12 by 4.5cm @3o'clock. Full thickness pressure injury R ischium (L)4.2cm x (W)5.5cm x(D)1.6cm, undermining 12-12 by 1.8cm @12o'clock .Base of wound 60% granular ,40% velazquez slough undermined borders.Wound has mild odor with small amt seropurulent exudate.darker skin tone that is indurated periwound. Resolving pressure injury sacrum . Base of wound dry with pink epithelial.with scattered shearing within base of wound. L heel boggy with non-blanchable erythema. DTPI R heel and Lateral aspect .Base of wound is maroon with fluctuance. (L) 4.5cm x (W)7.3cm. Tx.Plan. Cleanse wounds Thoracic and lumbar spine with Dakin's 0.125% segun. Pack with Dakin's moist gauze. Apply Moisture Barrier Paste periwound. Cover each wound with Optifoam drsg.Twice Daily and prn. Cleanse wound L trochanter and L ischium with Dakin's 0.125% segun. Pack with Dakin's moist Gauze.Apply Moisture Barrier paste periwound. Cover with Optifoam drsg. Twice daily and prn. Cleanse wounds R iliac ,R trochanter,R ischium with Dakin's 0.125% segun. Pack with Dakin's moist gauze. Apply Moisture Barrier Paste periwound. Cover with Optifoam drsg Twice daily and prn. Apply Moisture Barrier paste to sacrum. Cover with Optifoam drsg. Change every 3 days and prn. Apply Cavilon Skin Barrier to Both heels. Cover each heel with Optifoam drsg. Change every 7 days and prn. Air Fluidized Mattress. Reposition at least every 2hours or as tolerated. Off-load heels with pillow. (3) Sepsis Assessment & Plan: Continue with IV antibiotics as per infectious disease. Awaiting blood cultures. Trend labs Thank you (4) Anemia (5) Dementia (6) Dyspnea (7) Respiratory distress (8) Hyperlipidemia (9) Aspiration pneumonia (10) Aspiration pneumonia (11) Vitamin B 12 deficiency (12) Encephalopathy (13) Pneumonia (14) Status epilepticus (15) HTN (hypertension) (16) Encephalopathy acute (17) BPH (benign prostatic hyperplasia) (18) Abnormal LFTs (19) UTI (urinary tract infection), bacterial (20) Probable sepsis (21) Toxic metabolic encephalopathy (2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 (23) Zev Mchugh Feb 25, 2019 15:55
[2019-02-25 16:00] VITALS: BP 140/69
--- NOTE | 2019-02-25 16:25 | NUR ---
MANAGER RADIO NOTES RECEIVED DC ORDER TO RETURN TO [facility]. PT ACCEPTED TO ROOM 21 BED B. [facility] TO TRANSPORT PT WITH AN RT WITH ETA OF 6250. NURSE MADE AWARE. [facility] [phone] [facility] [phone]
--- NOTE | 2019-02-25 16:25 | NUR ---
*-* DISCHARGE PLANNED *-* PATIENT IS DISCHARGED BACK TO: [facility]. ROOM# 21-B RETIREMENT T:[phone] FOR NURSE TO NURSE REPORT [facility] HAS BEEN ARRANGED FOR SINGLE STROKE PREFORMER AT 1800.
--- NOTE | 2019-02-25 16:31 | NUR ---
NURSE NOTES: left a message to pt's , Ruthie Bermudez [phone], regarding discharge to SNF, awaiting for call back.
--- NOTE | 2019-02-25 16:54 | NUR ---
NURSE NOTES: nursing report given to Kirsten at [facility]. All questions answered.
--- NOTE | 2019-02-25 19:18 | NUR ---
NURSE NOTES: IV was removed. Patient discharged to [facility]. Patient has no belongings. Report given to LALA Jefferson. VSS.
[2019-02-25] MEDS ORDERED: Tubing IV Secondary IV ONE (19:44)
[2019-02-25] MEDS ORDERED: NS 275ml ONE (19:44)
[2019-02-25] MEDS ORDERED: 1/2 NS 1000ml IV ONE (19:44)
[2019-02-25] MEDS ORDERED: Epoetin Alfa-EPBX (NON ESRD) 2000 units/ml vial SUBQ SCH (21:00)
[2019-02-25] MEDS ORDERED: Iron Sucrose 100 MG in NS 55 ML IV SCH (21:00)
[2019-02-25] MEDS ORDERED: Epoetin Alfa-EPBX (NON ESRD) 3000 units/ml vial SUBQ SCH (21:00)
--- NOTE | 2019-02-25 23:15 | Progress Note ---
DATE: 02/25/2019 CARDIOLOGY PROGRESS NOTE SUBJECTIVE: The patient is poorly responsive at baseline and is in no apparent respiratory distress on ventilator support via tracheostomy. Monitored rhythm sinus and sinus bradycardia. Rare atrial ectopics. OBJECTIVE: VITAL SIGNS: Blood pressure 114/55, pulse 65, respirations 21, afebrile. HEENT: Thin trach secretions. LUNGS: Coarse breath sounds with no wheezing. CARDIAC: Regular rhythm and rate. Normal S1, S2 with no new murmur. ABDOMEN: Soft with G-tube intact. EXTREMITIES: With muscle atrophy, contractures. No edema. LABORATORY DATA: White count 9.6, hemoglobin 8. Potassium 4.3, magnesium 1.8, BUN 26, creatinine 0.7. Pro-natriuretic peptide 4300. Albumin 1.1. IMPRESSION: 1. Ventilator-dependent respiratory failure. 2. Healthcare-acquired pneumonia. 3. Acute on chronic diastolic congestive heart failure. 4. Paroxysmal atrial fibrillation. 5. Sinus node dysfunction. 6. Chronic encephalopathy. 7. Anemia, multifactorial requiring transfusions periodically. 8. Severe protein-calorie malnutrition. PLAN: 1. Antimicrobials. 2. Ventilator support. 3. Respiratory hygiene. 4. Discontinue IV fluids. 5. Nutritional support by G-tube. 6. Periodic diuretics to mobilize extravascular edema in the setting of low colloid osmotic pressure. Discharge plan to subacute facility noted. Discharge medication regimen reviewed and reconciled. Jones Arauz M.D. DR: RAUL JOB#: [id number] CC:
--- NOTE | 2019-02-26 12:11 | Discharge Summary ---
Discharge Summary Discharge Summary _ DATE OF ADMISSION: 02/18/2019 DATE OF DISCHARGE: 02/25/2019 DISCHARGED BY: Dr. Vásquez REASON FOR ADMISSION: 73 years old male with past medical history of chronic respiratory failure, ventilator dependent, CVA, seizure disorder, encephalopathy, multiply wounds, history of pulmonary tuberculosis , status post treatment, recurrent pneumonia and urinary tract infection, was transferred from the snf facility due to abnormal labs. Upon evaluation laboratory work-up revealed leukocytosis with white blood count 22, hemoglobin 7.5. Lactic acid 1.2. Sodium 155. BUN 100. Urinalysis revealed evidence of urinary tract infection. Chest x-ray revealed patchy infiltrates versus pulmonary edema. Patient was pancultured , started on IV fluids and empiric antibiotic. Patient was admitted to stepdown unit for further evaluation and management. CONSULTANTS: milanese knitting machine operator pulmonary Dr. Cisse ID specialist Dr. Urban [facility] Patient admitted to [facility]. Patient was on IV hypotonic fluids and broad-spectrum antibiotic as per ID specialist recommendation. Ventilator support and tracheostomy care provided. Patient was followed-up with chest x-ray . Blood cultures were negative. Urine culture revealed Proteus mirabilis. Antibiotic regimen was optimized as per ID specialist recommendation. Follow-up chest x-ray revealed stable diffuse interstitial and airspace disease. Patient completed antibiotic course. Leukocytosis resolved, no fever. Assistant Professor Of Surgery closely followed. Ventilator support and tracheostomy care provided. No signs of respiratory distress on current ventilator setting. Patient was suctioned as needed. Nebulizing therapy with bronchodilator provided. Strict aspiration precaution maintained . DVT prophylaxis provided. Hemoglobin and hematocrit were closely monitored with goal to keep hemoglobin above 7. Patient undergone transfusion of 2 units of packed red blood cells. Patient started on Epogen. Patient received IV Venofer . Prior to discharge hemoglobin 8, hematocrit 26.9. Plasma Processing Technician followed. Patient was on antiplatelet therapy with aspirin and statin. Hemodynamic status was closely monitored, remained stable. Patient recovered from dehydration and hypernatremia. Blood pressure was closely monitored; patient was off all antihypertensives with the exception of beta-cr. Plasma Processing Technician recommended close monitoring of volumes and have spot/periodic diuretics to mobilize extravascular edema in the setting of the low colloid osmotic pressure. Protein supplements implemented in plan of care as per registered nurse renal recommendation. GI specialist followed. Abdominal ultrasound demonstrated nodular liver Nodularity of the liver was suggestive of chronic liver disease or cirrhosis. It was documented previously. Splenomegaly. Status post cholecystectomy. per GI specialist, n=liver nodularity possibly due to infiltrative liver disease, possible TB. LFT trended down to normal. Per GI specialist , patient had hepatitis and TRISTAN serology negative in 2018. Patient noted to have a slowly rising elevated alkaline phosphatase. However. per GI specialist, patient was not a good candidate for liver biopsy. Tube feeding formula and protein supplements provided as per registered nurse renal recommendations. Renal parameters and electrolytes were closely monitored. Electrolytes corrected as needed. Nephrotoxins were avoided. Prior to discharge BUN from 100 down to 26 , creatinine from 1.3 down to 0.7. Patient had acute renal failure likely due to volume depletion/dehydration and underlying sepsis. Surgeon seen the patient for sacral decubitus ulcer and other multiply pressure injury, present on admission. Wound care provided as per surgeon recommendation. Continue wound care at the facility. Seizure precaution maintained. Keppra continued. No evidence of seizure activity while in the hospital. Supportive care provided. Pain management was addressed as needed. Patient clinically stabilized and was ready for transfer to the snf facility as fdc. FINAL DIAGNOSES: Sepsis Proteus UTI , status post treatment Healthcare acquired pneumonia Toxic metabolic encephalopathy History of pulmonary TB , status post treatment Chronic respiratory failure , ventilator dependent with tracheostomy status Acute on chronic diastolic congestive heart failure Paroxysmal atrial fibrillation Sinus node dysfunction Hypernatremia-resolved Acute renal failure -resolved Dehydration initially- resolved Seizure disorder Anemia multifactorial , requiring transfusion Severe protein calorie malnutrition Multiply pressure injury, present on admission DISCHARGE MEDICATIONS: List of medication was sent to accepting facility. DISCHARGE INSTRUCTIONS: Patient was discharged to the snf facility. Follow up with medical doctor at the facility. I have been assigned to dictate discharge summary for this account. I was not involved in the patient's management. Mandi Collazo NP Feb 26, 2019 12:11
== END 2019-02-25 19:45 | DRG 870 ==
LOC: EDBD 14:05 → EMR 14:53 → EDBEDREQ 15:15 → 2W 16:02 → EDBEDREQ 16:21
PROC: 5A1955Z Respiratory Ventilation, Greater than 96 Consecutive Hours (ICD-10-PCS; principal; 2019-02-18)
DX: A41.9 Sepsis, unspecified organism (principal); L89.213 Pressure ulcer of right hip, stage 3; G92 Toxic encephalopathy; J69.0 Pneumonitis due to inhalation of food and vomit; I50.33 Acute on chronic diastolic (congestive) heart failure; E43 Unspecified severe protein-calorie malnutrition; J96.10 Chronic respiratory failure, unspecified whether with hypoxia or hypercapnia; E87.0 Hyperosmolality and hypernatremia; N17.9 Acute kidney failure, unspecified; N39.0 Urinary tract infection, site not specified; I13.0 Hypertensive heart and chronic kidney disease with heart failure and stage 1 through stage 4 chronic kidney disease, or unspecified chronic kidney disease; Z99.11 Dependence on respirator [ventilator] status; Z68.1 Body mass index [BMI] 19.9 or less, adult; D64.9 Anemia, unspecified; L89.159 Pressure ulcer of sacral region, unspecified stage; G40.909 Epilepsy, unspecified, not intractable, without status epilepticus; E86.0 Dehydration; Z93.0 Tracheostomy status; Z93.1 Gastrostomy status; F03.90 Unspecified dementia, unspecified severity, without behavioral disturbance, psychotic disturbance, mood disturbance, and anxiety; E78.5 Hyperlipidemia, unspecified; E53.8 Deficiency of other specified B group vitamins; N40.0 Benign prostatic hyperplasia without lower urinary tract symptoms; N18.9 Chronic kidney disease, unspecified; I48.0 Paroxysmal atrial fibrillation
CPT/HCPCS: 36415; 71045; 76700; 80053; 80061; 80150; 80202; 81003; 82550; 82553; 83605; 83690; 83735; 83880; 84100; 84443; 84484; 85007; 85025; 85610; 85730; 86850; 86900; 86901; 86920; 87040; 87070; 87086; 87181; 87205; 93005; 93970; 94002; 94003; 94664; 96361; 96365; 96367; 96375; 99285; J8499